=== PATIENT | female | born 1980 | race Caucasian/White ===

== ENCOUNTER 2017-10-12 21:36 | Emergency (ER) | payer MEDICAID, SELFPAY ==
[2017-10-12 21:37] VITALS: BP 134/97; PULSE 107; RESP 18; TEMP 37.1; O2SAT 97; BMI 65.0
[2017-10-12 21:58] LABS: Bacteria 0 SEEN /hpf (None Seen); Mucous, Urine 0 SEEN /hpf (<or=2+)
[2017-10-12 22:14] LABS: Internal QC Validated? YES +Cl - CLEAR BKGD; Pregnancy, Urine Negative Negative
[2017-10-12 22:20] LABS: Color, Urine Yellow (Yellow); Glucose, Dipstick 250 mg/dl (Normal); Ketone-Dipstick Negative (Negative); Leukocyte Esterase-Dipstick 100 /ul (Negative); Nitrite-Dipstick Negative (Negative); Occult Blood-Urine 150 /ul (Negative); Protein-Dipstick 30 mg/dl (Negative); Specific Gravity, Urine 1.015 (1.002-1.030); Urine Bilirubin Dipstick Negative (Negative); Urine Clarity Clear (Clear); Urine Urobilinogen 1 mg/dl (Normal); Urine pH 6.5 (5.0 - 8.0)
[2017-10-12 22:21] LABS: Red Blood Cells-Urine 5-10 SEEN /hpf (0-5); White Blood Cells 10-25 SEEN /hpf (0-5)
[2017-10-12 22:22] LABS: Squamous Epithelial Cells - UA 0-5 SEEN /hpf (5-10)
--- NOTE | 2017-10-12 22:59 | ED.RN ---
PT RANG CALL CISNEROS C/O CONTINUED PAIN. DR. ELLIS INFORMED. NO NEW ORDERS AT THIS TIME. WILL CONTINUE TO MONITOR.
--- NOTE | 2017-10-12 23:04 | ED.DCSUM_ITS ---
- ER Visit Summary Date of Service: 10/12/17 Chief Complaint: Dysuria History of Present Illness: The patient is a 37 F 3 days of dysuria hematuria and frequency. She notes bilateral kidney pain. No fevers. Physical Examination: Febrile vital signs are stable. Obesity of the current precludes palpation of the abdominal structures. There is no CVA tenderness Test Results: Urinalysis on 10-25 white cells 5-10 red cells test was negative Emergency Department Course and Treatment: She will be started on Pyridium and Macrobid. Urine culture was ordered. Impression: 1. Acute cystitis This note was generated with [employer] dictation software. It may contain incorrect words, spelling, and punctuation that were not noted in review of the chart prior to signing ED Disposition - Plan for ED Patient: Disposition: Home or Assisted Living Chief Complaint: Complaint Instructions: ED UTI Cystitis Female Prescriptions: Nitrofurantoin Macrocrystals [Macrobid] 100 mg PO Q12 #10 cap Phenazopyridine HCl [Pyridium] 200 mg PO BID PRN PRN #6 tab PRN Reason: Pain Referrals: Verona Villarreal MD [Primary Care Provider] - 5-7 Days
[2017-10-12] MEDS: Nitrofurantoin Macrocrystals 100 MG Capsule PO (23:19)
[2017-10-12] MEDS: Phenazopyridine 95 MG Tablet 190 MG PO (23:19)
[2017-10-12 23:20] VITALS: BP 102/60; PULSE 79; RESP 18; O2SAT 96
== END 2017-10-12 23:21 | disposition home or self-care (01) ==
PROVIDERS: Emergency Provider Emergency Medicine; Family Provider Internal Medicine; PCP Internal Medicine
DX: N30.00 Acute cystitis without hematuria (principal); E11.9 Type 2 diabetes mellitus without complications; F31.9 Bipolar disorder, unspecified; E66.9 Obesity, unspecified; Z72.0 Tobacco use; Z79.84 Long term (current) use of oral hypoglycemic drugs; Z79.899 Other long term (current) drug therapy
CPT/HCPCS: 81001; 81025; 87077; 87086; 87088; 87186; 99283

== ENCOUNTER 2017-10-22 11:10 | Day surgery (SDC) | payer MEDICAID, SELFPAY ==
[2017-10-22] VITALS (7 sets, daily range): BP systolic 95–133; BP diastolic 56–91; PULSE 83–97; RESP 16–18; TEMP 36.4–36.6; O2SAT 96–98; BMI 64.0
--- NOTE | 2017-10-22 | IMM_PTH ---
PATIENT: ANDRES BOB LOC: EN U#:[id number] AGE/SX: 37/F ROOM: RE10/22/[address]: Dr. Rigo Donovan MD : 1980 BED: DIS: 10/22/2017 SPEC #: [id number] RECD: 10/24/17 10:17 STATUS: FELIPE RETete #: [id number] GABRIELLA: 10/22/17 00:[address]: Rigo Donovan DEPT: IMMUNOHISTOCHEMISTRY RECD BY: Erendira Fulton ENTERED: 10/24/17 10:18 SP TYPE: IMMUNO OTHR DR: Dr. Verona Villarreal MD Tissues: A - Stomach, NOS Procedures: H Pylori (initial) PHYSICIAN & INSTITUTION [place] [id number] SPECIMEN INFORMATION: Tissue Source: A ? Antrum biopsy Clinical Info: Epigastric pain, diarrhea Specimen Number: [id number] CPT code: 81362 METHODOLOGY: Deparaffinized sections of prefer/formalin-fixed tissue or PAP/DQ stained slides are incubated with monoclonal/polyclonal antibodies/oligonucleotide probes. Localization is made via biotin free immunoperoxidase method. Appropriate controls are performed and reacted as expected. Results on target cell population are indicated in the following table: RESULTS: ANTIBODY / CLONE RESULT Block A H Pylori (polyclonal) negative These tests were developed and their performance characteristics determined by [facility]. They may not have been cleared or approved by the U.S. Food and Drug Administration. The FDA has determined that such clearance or approval is not necessary. INTERPRETATION: A. Antrum biopsy: Negative for Helicobacter pylori organisms. SJ:manoj 10/24/17
--- NOTE | 2017-10-22 07:35 | HP.PCM_ITS ---
History and Physical Date of Admission: 10/22/17 HISTORY AND PHYSICAL ? Nanci Rodriguez 1980 ? REFERRING PHYSICIAN: ~~Rigo Donovan MD ? CHIEF COMPLAINT: ~~Established Patient (CT scan results for hernia) - Epigastric pain ? HPI: The patient is a 36 year old female who follows up for concern of epigastric pain which she believes is a recurrent hernia. ? Nanci is a patient I am following for a umbilical hernia. ~I performed an umbilical hernia repair with mesh on 10/05/16. ~~~The patient is morbidly obese. ~The patient has diabetes. ~At the time before surgery, she claimed that she quit smoking but now admits that she did not quit smoking. ~Due to her morbid obesity we could not appreciate a upper midline ventral hernia where the patient was having discomfort. ~We also do not appreciate a recurrence at her umbilical incisional hernia repair. ~A CT scan of the abdomen and pelvis was obtained. ~This demonstrated: ? IMPRESSION: Low-attenuation density at site of umbilical hernia may represent minimal residual seroma or remote hematoma. ?Infection cannot be excluded on the basis of this study. ?No recurrent hernia. Hepatic steatosis. ? I reviewed the CT scan. ~I see no signs of recurrent herniation or abnormality in the upper abdomen which would explain her pain symptoms ? Nanci notes the following GI complaints: ~~Nanci notes~diarrhea. ~The patient states that food she ate would run right out of her within 1 hour.~~ Nanci denies~constipation. ~Nanci notes~a change in bowel habits. ~Nanci denies~melena. ~Nanci denies~bright red blood per rectum. ~~~Nanci denies~ hemorrhoids. ~ ? The patient ~notes the following upper complaints: ~~Nanci notes abdominal pain. ~~~The pain occurs in the following locations: ~epigastric region . ~ Nanci denies~heartburn. ~~Nanci denies~dysphagia. ~Nanci denies~a history of ulcers/ peptic ulcer disease. ~ ? Nanci has not~undergone prior endoscopy. ~ ? ? PAST?MEDICAL?HISTORY PAST MEDICAL HISTORY Diagnosis Date ? Abnormal glandular Papanicolaou smear of cervix 2004 ? Abn. Pap smear (cervix) ? Allergic rhinitis, cause unspecified ? ? Bipolar I disorder, most recent episode (or current) depressed, moderate 12/26/2011 ? CPAP (continuous positive airway pressure) dependence ? ? Depressive disorder, not elsewhere classified ? ? Migraine without aura, without mention of intractable migraine without mention of status migrainosus 03/29/2006 ? Mild dysplasia of cervix ? ? Obesity ? ? Unspecified asthma(493.90) ? ? ? PAST?SURGICAL?HISTORY PAST SURGICAL HISTORY Procedure Laterality Date ? BACK SURGERY HX ? ? ? Pain block ? REPAIR UMBILICAL MARY,5+Y/O,REDUC ? 10/05/2016 ? 8cm ventralex ST mesh ? VAGINOSCOPY ? CURRENT?MEDICATIONS ? Current Outpatient Prescriptions: VENTOLIN HFA 90 mcg/actuation inhaler Inhale 2 Puffs as instructed every 4 hours as needed. SUMAtriptan (IMITREX) 25 mg tablet Take 1 tablet by mouth at onset of headache and may repeat in 2 hrs if needed. CPAP CPAP and lifetime supplies ~G47.33 topiramate (TOPAMAX) 100 mg tablet TAKE 1 TABLET TWICE DAILY naproxen (NAPROSYN) 500 mg tablet TAKE 1 TABLET TWICE DAILY WITH FOOD NEEDED FOR PAIN and FOR INFLAMMATION metFORMIN (GLUCOPHAGE) 500 mg tablet Take 2 tablets by mouth twice daily with meals. lancets (FREESTYLE LANCETS) 28 gauge [facility] Test blood sugar(s) 1x daily. ~Dx: E11.9. Insulin: No urea (CARMOL) 40 % crea Apply 1 application to affected area twice daily. Blood-Glucose Meter (FREESTYLE INSULINX) [facility] Freestyle INSULINX Meter Kit. Dx: ~Type 2 DM - Controlled E11.9, Not on insulin buPROPion XL (WELLBUTRIN XL) 300 mg 24 hr tablet Take 1 tablet by mouth once daily. lamoTRIgine (LAMICTAL) 200 mg tablet Take 1 tablet by mouth once daily. loratadine (CLARITIN) 10 mg tablet Take 1 tablet by mouth once daily. montelukast (SINGULAIR) 10 mg tablet Take 1 tablet by mouth daily at bedtime. CPAP Initiate CPAP @ 15 cm of water with humidification. Mask (per patient preference ) optional chin strap (if indicated) , filters, tubing, humidifier and lifetime supplies. mometasone-formoterol (DULERA) 200-5 mcg/actuation inhaler Inhale 1-2 Puffs as instructed twice daily. traZODone (DESYREL) 100 mg tablet Take 1 to 2 tablets by mouth at bedtime as needed. LORazepam (ATIVAN) 1 mg tablet Take 1 tablet by mouth twice daily. As needed. Nebulizer NEBULIZER and Supplies FOR HOME USE. ~DX: J45.40 Albuterol Sulfate 1.25 mg/3 mL nebulizer solution Use 1 Ampule via nebulizer every 4 hours as needed for Wheezing/Shortness of Breath. citalopram (CELEXA) 40 mg tablet Take 1.5 tablets by mouth once daily. [facility] HYDROcodone-acetaminophen (NORCO) 5-325 mg per tablet ? acetaminophen-codeine (TYLENOL-CODEINE #3) 300-30 mg per tablet Take 1 tablet by mouth twice daily as needed for Pain. blood sugar diagnostic (FREESTYLE INSULINX) test strip Test blood sugars 1x per day. ~Dx: E11.9, insulin use: No diphenhydrAMINE (BENADRYL) 25 mg capsule Take 25 mg by mouth every 6 hours as needed. ? No current facility-administered medications for this visit. ? ALLERGIES: Penicillins; Melatonin; Tramadol; Environmental [Other] ? PERSONAL HISTORY: SOCIAL?HISTORY Social History ~~Marital status: Single ~~~~~~~~~~~~~Spouse name: ~~~~~~~~~~~~~~~~~~ ~~Years of education: 11 ~~~~~~~~~~~~~Number of children: 2 ~~~~~~~~ ? Occupational History Occupation ~~~~~~~~~Employer ~~~~~~~~~~~Comment ~~~~~~~~~~~~ UNEMPLOYED ~~~~~~~~~~~~~~~~~~~~~~~~~~~~~[employer] ? Social History Main Topics ~~Smoking status: Former Smoker ~~~~~~~~~~~~~~~~~~~~~~~~~~~~~~~~~~~~~~~~~~~~~~~~ ~~~~~~~~ ~~~~~Packs/day: 0.33 ~~~~~Years: 8.00 ~~~ ~~~~~Types: Cigarettes ~~~~~Start date: 08/17/1998 ~~~~~Quit date: 10/12/2016 ~~Smokeless status: Never Used ~~~~~~~~~~~~~~~~~~~ ~~Comment: 1 pack every 2-3 days ~~Alcohol use: Yes ~~~~~~~~ ~~~~~Comment: Seldom ~~Drug use: No ~~~~~~~~~ ~~~~~Comment: Past history of Marjiuana use ~~Sexual activity: Yes ~~~~~~~~~~~~~~Partners with: Male ~~~~~ control/protection: None ? ? FAMILY HISTORY: FAMILY?HISTORY FAMILY HISTORY Problem Relation Age of Onset ? hepatitis b [OTHER] Mother ? ? Asthma Father ? ? Hypertension Father ? ? Diabetes Father ? ? Hypertension Brother ? ? ? adhd ? Asthma Brother ? ? REVIEW OF SYMPTOMS: ~~The review of systems data was entered by the nurse and reviewed by me ? Nursing Notes: Jennifer Mayo Nima ~07/17/2017 ~3:22 PM ~Signed ? AMB ROOMING INTAKE FLOWSHEET DATA Risk Screening Do you have concerns about personal safety or safety in the home?: No Pain Pain Score: 7/10 Pain Location: Abdomen Description: Aching Duration Amount of Time: ~(Ongoing) Frequency: Continuous ? Patient states she is continuing to have pain in her abdomen. Taking no med's for the pain. Here for CT scan results. ? Jennifer Mayo Nima ~07/17/2017 ~3:24 PM ~Signed Patient states 2 of her son's at home have strep throat and are being treated. ~ ? ?? PHYSICAL EXAMINATION: ? General: ~The patient is 36 year old female, well nourished, well hydrated in no acute distress. ~The patient is oriented to time, place, and person. ? VITALS: Height 160 cm (5' 3), weight (!) 170.1 kg (375 lb), last menstrual period 07/11/2017.~Body mass index is 66.43 kg/(m^2).~ ? HEENT: ~Normal cephalic, ataumatic, pupils are equally round, sclera are anicteric, mucous membranes are moist, oropharynx is clear. ~Neck has no masses , asymmetry or lymphadenopathy. ~Thyroid is unremarkable. ? Respiratory: ~Clear to auscultation and percussion. ~Normal respiratory excursion and pattern. - INITIALLY WHEEZES BUT IMPROVED AFTER ALBUTEROL WAS GIVEN ? Cardiac: ~Examination is regular rate and rhythm. ? Abdominal exam: ~Soft, tenderIn the supraumbilical area not truly the epigastric area without additional areas of tenderness without peritoneal signs , ~with no palpable masses. ~No hepatosplenomegaly. ~No palpable hernias. ? Rectal exam: exam deferred ? Extremities: ~no clubbing, cyanosis or edema. ~No adenopathy. ? Other: ? LABORATORY VALUES: As Noted ? RADIOLOGIC STUDIES: ~As Noted ? Assessment ~ IMPRESSION: Upper abdominal pain, no signs of herniation, no CT scan images demonstrating abnormalities, loose stools frequently after eating ? PLAN: ~I plan to perform upper and lower~endoscopy. ~~We discussed the risks and benefits of the planned endoscopy. ~I have informed the patient that complications can occur including failure to complete the endoscopy and perforation. ~The patient had the opportunity to ask questions concerning the planned endoscopy. ~My staff has also explained the procedure to the patient in understandable terms and has given the patient printed material concerning the procedure. ~The patient freely consents to surgery. ? I plan to use golytely bowel preparation for endoscopy ? The patient has medical comorbidities for which I plan to perform the procedure under monitored anesthetic care. ? Diagnoses: (R10.10) Pain of upper abdomen ~(primary encounter diagnosis) (R19.4) Change in bowel habits ? My findings have been communicated to Dr. Caryn Villarreal MD~via shared medical record. ~This note will be forwarded to Dr. Verona Villarreal MD. ? Return to Clinic: The patient is instructed to follow-up with me 1 week post operatively. ? Rigo Donovan MD
[2017-10-22 11:48] LABS: Internal QC Validated? YES +Cl - CLEAR BKGD; Pregnancy, Urine Negative Negative
[2017-10-22 12:16] LABS: Bedside Glucose 133 mg/dL (70-110)
--- NOTE | 2017-10-22 13:02 | EGD_PTH ---
PATIENT: ANDRES BOB LOC: EN U#:[id number] AGE/SX: 37/F ROOM: RE10/22/[address]: Dr. Rigo Donovan MD : 1980 BED: DIS: 10/22/2017 SPEC #: [id number] RECD: 10/22/17 15:19 STATUS: FELIPE STEPHY #: [id number] GABRIELLA: 10/22/17 13:[address]: Rigo Donovan DEPT: SURGICAL PATHOLOGY RECD BY: Jatin Perez ENTERED: 10/23/17 09:35 SP TYPE: EGD BIOPSY ESTEFANIA DR: Dr. Verona Villarreal MD Tissues: A - Gastric mucous membrane B - Ileum, NOS C - Cecum, NOS Procedures: Surgery Specimen Level IV HEADER OPERATION: EGD with biopsy, colonoscopy with biopsy PRE-OP DIAGNOSIS: Epigastric pain, diarrhea TISSUE SUBMITTED: A ? Antrum biopsy, B ? Terminal ileum biopsy, C ? Cecum biopsy and sigmoid biopsy MICROSCOPIC DIAGNOSIS A. Antral biopsy: Mild gastritis. B. Terminal ileum, biopsy: Fragment of small intestinal mucosa, no pathologic diagnosis. C. Cecum and sigmoid biopsy: Fragments of colonic mucosa, no pathologic diagnosis. SJ:manoj 10/24/17 COMMENT A. The results of immunohistochemistry for Helicobacter pylori will be reported separately ([id number]). MICROSCOPIC DESCRIPTION Slides are reviewed. A. The specimen shows fragments of gastric mucosa with chronic inflammatory cell infiltrates in the lamina propria consisting of lymphocytes and plasma cells, consistent with mild chronic gastritis. GROSS DESCRIPTION A - Received in fixative is one container labeled with the patient's name and designated antral biopsy. The specimen consists of one irregular fragment of light grullon soft tissue that measures 0.3 x 0.3 x 0.1 cm. The specimen is totally submitted in one cassette. B - Received in fixative is one container labeled with the patient's name and designated terminal ileum biopsy. The specimen consists of one irregular fragment of light grullon soft tissue that measures 0.3 x 0.2 x 0.1 cm. The specimen is totally submitted in one cassette. C - Received in fixative is one container labeled with the patient's name and designated cecum biopsy and sigmoid biopsy. The specimen consists of two irregular fragments of light grullon soft tissue that in aggregate measure 0.5 x 0.4 x 0.1 cm. The specimen is totally submitted in one cassette. / SJ:rg 10/23/17 TC:3 CPT: 89946 x3
--- NOTE | 2017-10-22 13:40 | PCM.OPRPT ---
Report of Operation Date of Procedure: 10/22/17 Pre-Operative Diagnosis: EPIGASTRIC PAIN, CHANGE IN BOWEL HABITS Post-Operative Diagnosis: DUODENITIS, GASTRITIS AND REFLUX ESOPHAGITIS, NORMAL TERMINAL ILEUM, NORMAL COLONOSCOPY Surgery/Procedure Performed:: EGD WITH BIOPSY, COLONSOCOPY WITH BIOPSY interactive video technician: None Type of Anesthesia:: MAC Anesthesiologist: [place] ASA3 Specimen's removed: GASTRIC, TERMINAL ILEUM, COLON X 2 - RANDOM Description of Procedure: The patient was brought to the endoscopy suite. Sign in was performed verifying patient, site, planned procedure, critical nursing information, the patient was monitored with cardiac, pulse oximetric, and blood pressure monitoring devices. Monitored anesthetic care was provided for sedation. Following IV sedation and after the oropharynx was sprayed with Cetacaine spray, a video gastroscope was inserted in the oropharynx and advanced down the esophagus without difficulty. The scope was advanced through the stomach, through the pylorus through the duodenum to the proximal jejunum. the jejunum and third portion of duodenum were unremarkable. The scope was withdrawn. There was mild to moderate duodenitis. The scope was further withdrawn. There was gtcx-[id number]-dvdhywxn diffuse gastritis present both in the antral region along the greater curvature and the fundic areas. Biopsy of the antral region for H. pylori and pathology was performed. There was no true hiatal hernia, but the patient inaudible axillary esophageal sphincter. The distal esophagus demonstrated changes consistent with reflux esophagitis. Biopsy was performed. The patient was positioned for colonoscopy. A digital rectal exam was performed which revealed no palpable abnormalities. The video colonoscope was inserted and advanced to the cecum as verified by the ileocecal valve, cecal base anatomic features and palpation. the video colonoscope was then inserted into the terminal ileum. The terminal ileum appeared unremarkable. A biopsy of the terminal ileum was obtained and sent to pathology. The scope was withdrawn. There was a scant amount of solid stool adherent to the nguyen of the cecum. The transverse colon and the descending colon but otherwise visualized. Inspection revealed normal-appearing colon throughout. Random colonic biopsies were obtained in the cecum and sigmoid region area. As the scope was withdrawn. The scope was retroflexed in the rectum. This appeared unremarkable. The patient tolerated the procedure well and was brought to recovery in stable condition
== END 2017-10-22 14:00 | disposition home or self-care (01) ==
LOC: EN 11:12 → AC 11:23
PROVIDERS: Anesthesiology; Family Provider Internal Medicine; PCP Internal Medicine; Visit Provider Surgery
PROC: 0DJD8ZZ Inspection of Lower Intestinal Tract, Via Natural or Artificial Opening Endoscopic (ICD-10-PCS; CPT 45378; principal; 2017-10-22 12:25)
DX: K29.70 Gastritis, unspecified, without bleeding (principal); K29.80 Duodenitis without bleeding; K21.0 Gastro-esophageal reflux disease with esophagitis; R19.7 Diarrhea, unspecified; K76.0 Fatty (change of) liver, not elsewhere classified; E11.9 Type 2 diabetes mellitus without complications; J45.909 Unspecified asthma, uncomplicated; G47.30 Sleep apnea, unspecified; G43.909 Migraine, unspecified, not intractable, without status migrainosus; F31.9 Bipolar disorder, unspecified; F41.9 Anxiety disorder, unspecified; F17.200 Nicotine dependence, unspecified, uncomplicated; E66.01 Morbid (severe) obesity due to excess calories; Z68.44 Body mass index [BMI] 60.0-69.9, adult; Z79.84 Long term (current) use of oral hypoglycemic drugs; Z79.899 Other long term (current) drug therapy; Z87.442 Personal history of urinary calculi; Z87.440 Personal history of urinary (tract) infections
CPT/HCPCS: 43239; 45380; 81025; 82962; 88305; 88342; J7120

== ENCOUNTER 2017-11-10 19:38 | Emergency (ER) | payer MEDICAID, SELFPAY ==
[2017-11-10 19:39] VITALS: BP 148/92; PULSE 85; RESP 15; TEMP 36.7; BMI 63.4
[2017-11-10] MEDS: 0.9% Normal Saline 1,000 ML 1000 ML IV (20:19)
[2017-11-10] MEDS: Ondansetron 4 MG/2 ML Vial IV (20:20)
[2017-11-10 20:32] LABS: Absolute Lymphocyte Count 2.66 X10^3/ul (0.83-4.51); Absolute Neutrophil Count 4.8 X10^3/uL (2.0-7.7); Basophil# 0.02 X10^3/uL; Basophil% 0.2 % (0-1); Eosinophil# 0.33 X10^3/uL; Eosinophils% 4.1 % (0-5); Hematocrit 46.6 % (37-47); Hemoglobin 15.2 g/dl (12.0-15.0); Lymphocyte # 2.66 X10^3/ul (4.0); Lymphocyte % 32.7 % (19-41); Mean Corp Hgb Conc 32.6 g/gl (32-36); Mean Corpuscular Hgb 29.2 pg (27.0-32.0); Mean Corpuscular Volume 89.4 fL (81-99); Mean Platelet Vol. 9.5 fl (6.2-12.0); Monocyte% 3.7 % (0-10); Neutrophil # 4.82 X10^3/uL (2.7-7.7); Neutrophil % 59.2 % (47-70); POSITIVE COUNT NO; POSITIVE DIFFERENTIAL NO; POSITIVE MORPHOLOGY NO; Platelet Count 219 K/mm3 (150-450); RBC Distribution Width CV 14.2 % (11.6-14.6); RBC Distribution Width SD 46.3 fl (35.1-43.9); Red Blood Count 5.21 M/mm3 (4.2-5.4); White Blood Count 8.1 K/mm3 (4.4-11.0)
[2017-11-10 20:46] LABS: ALB/GLOB Ratio 0.9 RATIO (0.9-2.4); AST(SGOT) 60 U/L (15-37); Alanine Aminotransfer ALT/SGPT 66 U/L (13-56); Albumin, Serum 3.5 g/dL (3.2-5.0); Alkaline Phosphatase 115 U/L (45-117); Anion Gap 7 (5-15); BUN 12 mg/dL (7-18); BUN/Creat Ratio 14.5 RATIO (10-20); Calcium,Total 8.9 mg/dL (8.5-10.1); Chloride 105 mmol/L (98-107); Creatinine, Serum 0.83 mg/dL (0.55-1.02); EST Glomerular Filtration Rate 83 mL/min (>60); Est Glom Filt Rate - Afr Amer 100 mL/min (>60); Estimated Creatinine Clearance 80.91 ml/min; Globulin 4.1 g/dL (2.2-4.2); Glucose 129 mg/dL (74-106); Lipase 361 U/L (73-393); Potassium 3.6 mmol/L (3.5-5.1); Protein, Total 7.6 g/dL (6.4-8.2); Sodium Level 139 mmol/L (136-145)
[2017-11-10 21:52] VITALS: BP 127/83; PULSE 77; RESP 20; O2SAT 96
--- NOTE | 2017-11-10 22:16 | ED.DCSUM_ITS ---
- ER Visit Summary Date of Service: 11/10/17 Chief Complaint: Acute right upper quadrant abdominal pain History of Present Illness: The patient is a 37 F who presents with abdominal pain. She states she awoke this morning urinated without difficulty. She then had 2 loose stools. She now presents with acute right upper quadrant abdominal pain. She denies intolerance to greasy or fried foods. There is no known family history of cholelithiasis. She reports history of renal lithiasis 17 years ago. She denies frequency, urgency, hematuria or dysuria. She denies any chest pain, shortness of breath, cough or dyspnea on exertion. There is no history of trauma. She denies any skin lesions or rash. She incorrectly told the triage nurse left sided abdominal pain. She denies fever, chills night sweats. Denies weight loss or weight gain. She denies any ocular, visual or auditory symptoms. She denies rhinorrhea or sore throat. Physical Examination: Patient's vital signs are marked for an elevated blood pressure of 148/92 and she is afebrile. Heart rate is 85 and respiratory rate is 15. Head is atraumatic normocephalic. Pupils are equal round reactive. Extraocular muscles are intact. TMs are pearly white with landmarks noted. Nares patent with no drainage. Posterior pharynx without erythema or exudate. Uvula is midline. There is no dysphonia or dysphasia. Trachea is midline. There is no stridor with auscultation of the neck. Heart is regular without murmur, gallop or rub. S1 and S2 are normal. Lungs are clear to auscultation with good movement of air bilaterally. Abdomen is remarkable for tenderness the right upper quadrant. Jain sign is negative. Bowel sounds are present diminished. There is no CVA tenderness noted. There is no lesion or rash to suggest herpes varicella-zoster. There is no evidence of umbilical hernia. Difficult to assess for inguinal hernia. Lower extremity exam is unremarkable. Neurologic exam is nonfocal. Test Results: White count is normal. Electrolyte panel is remarkable glucose of 129. Hepatic is remarkable for an ALT of 66 and AST of 60. The ALT is slightly above normal and the AST is approximately 2 times normal. She denies history of drinking. Emergency Department Course and Treatment: He was established she was treated with Zofran and morphine IV push. Blood work was obtained to evaluate for hepatobiliary disease. Treatment Plan: Was reassessed at 2210. She has decreased pain in the right upper quadrant. She has had no vomiting during her stay. She does report improvement. Will discharge with prescription for outpatient ultrasound of the gallbladder. She has seen Dr. Clark in the past. Also will dispense home- going Zofran and [place] since pharmacies are closed. Disposition: Discharged to home Impression: Right upper quadrant abdominal pain with elevated ALT and AST uncertain etiology This note was generated with [employer] dictation software. It may contain incorrect words, spelling, and punctuation that were not noted in review of the chart prior to signing ED Disposition - Plan for ED Patient: Disposition: Home or Assisted Living Chief Complaint: Abd Pain Instructions: ED Abdominal Pain Gallstone Poss Referrals: Verona Villarreal MD [Primary Care Provider] - 3-5 Days Additional Instructions: Do not eat after midnight day before ultrasound.
[2017-11-10] MEDS: HYDROcodone Bitartrate/Apap 5/325 Tablet PO ×2 (22:39→22:41)
[2017-11-10] MEDS: Ondansetron ODT 4 MG Tablet PO (22:40)
[2017-11-10 22:46] VITALS: BP 111/73; PULSE 82; RESP 14; O2SAT 95
--- NOTE | 2017-11-10 22:47 | NURSING ---
patient IV site removed catheter intact and bleeding controlled with pressure. Patient given discharge instructions with verbal understanding. family at the bedside at this time
== END 2017-11-10 22:48 | disposition home or self-care (01) ==
PROVIDERS: Emergency Provider Emergency Medicine; Family Provider Internal Medicine; PCP Internal Medicine
DX: R10.11 Right upper quadrant pain (principal); R74.0 Nonspecific elevation of levels of transaminase and lactic acid dehydrogenase [LDH]; R11.2 Nausea with vomiting, unspecified; R19.7 Diarrhea, unspecified; R03.0 Elevated blood-pressure reading, without diagnosis of hypertension; F31.9 Bipolar disorder, unspecified; E66.9 Obesity, unspecified; Z79.84 Long term (current) use of oral hypoglycemic drugs; Z79.899 Other long term (current) drug therapy
CPT/HCPCS: 80053; 83690; 85025; 96361; 96374; 96375; 99284; J7030; J2405

== ENCOUNTER → 2017-11-14 10:06 | Outpatient (CLI) | payer MEDICAID, SELFPAY ==
--- NOTE | 2017-11-14 10:08 | US_ITS ---
STUDY: ABDOMINAL ULTRASOUND - RIGHT UPPER QUADRANT REASON FOR VISIT: Female, 37 years old. Elevated liver function tests and right upper quadrant pain. TECHNIQUE: Ultrasound evaluation of the right upper quadrant was performed with real-time and static boyce-scale imaging. TECHNICAL QUALITY: Limited. Examination limited due to obesity. COMPARISON: Comparison is made with prior CT scan abdomen dated September 19, 2017. FINDINGS: Liver: The liver measures 15.2 cm. There is increased echogenicity consistent with fatty infiltration. The bile ducts are within normal limits. There is hepatic color flow. The direction of portal flow is hepatopetal. There is no demonstrated mass lesion. Gallbladder: Normal distended gallbladder. The gallbladder wall measures 3.0 mm. There is a negative sonographic Jain's sign. There is no pericholecystic fluid. There are no gallstones. Common Bile Duct (C.B.D.): The common bile duct measures 5.0 mm. Pancreas: Normal size of the head, body and tail of the pancreas. There is normal echogenicity of the pancreas. There is no demonstrated pancreatic mass or cyst. Right Kidney: There is hypertrophy of the right kidney. The right kidney measures 16.1 cm x 7.3 cm x 6.6 cm. Normal renal cortex. The right cortex measures 1.7 cm. There is no demonstrated renal mass or cyst. There is no right hydronephrosis. US/Gallbladder IMPRESSION: Fatty infiltration of liver. Hypertrophy of the right kidney. Electronically Signed: Bernardo Barbosa MD at 15:21 EST Tel [phone], Service support ,
== END ==
PROVIDERS: Family Provider Internal Medicine; PCP Internal Medicine; Visit Provider Emergency Medicine
DX: R10.11 Right upper quadrant pain (principal); R74.8 Abnormal levels of other serum enzymes
CPT/HCPCS: 76705

== ENCOUNTER 2017-12-11 23:22 | Emergency (ER) | payer MEDICAID, SELFPAY ==
[2017-12-11 23:24] VITALS: BP 92/50; PULSE 105; RESP 18; TEMP 37.2; O2SAT 97; BMI 64.3
[2017-12-12 00:06] VITALS: BP 138/72; PULSE 99; O2SAT 97
[2017-12-12 00:44] LABS: Absolute Lymphocyte Count 2.42 X10^3/ul (0.83-4.51); Absolute Neutrophil Count 5.1 X10^3/uL (2.0-7.7); Basophil# 0.03 X10^3/uL; Basophil% 0.4 % (0-1); Eosinophils% 3.6 % (0-5); Hematocrit 42.4 % (37-47); Hemoglobin 14.2 g/dl (12.0-15.0); Lymphocyte # 2.42 X10^3/ul (4.0); Lymphocyte % 29.3 % (19-41); Mean Corp Hgb Conc 33.5 g/gl (32-36); Mean Corpuscular Hgb 29.6 pg (27.0-32.0); Mean Corpuscular Volume 88.3 fL (81-99); Mean Platelet Vol. 9.5 fl (6.2-12.0); Monocyte# 0.41 X10^3/uL; Neutrophil % 61.6 % (47-70); POSITIVE COUNT NO; POSITIVE DIFFERENTIAL NO; POSITIVE MORPHOLOGY NO; Platelet Count 214 K/mm3 (150-450); RBC Distribution Width CV 14.2 % (11.6-14.6); RBC Distribution Width SD 45.2 fl (35.1-43.9); White Blood Count 8.3 K/mm3 (4.4-11.0)
[2017-12-12] MEDS: 0.9% Normal Saline 1,000 ML 1000 ML IV (00:46)
[2017-12-12] MEDS: Ondansetron 4 MG/2 ML Vial IV (00:46)
[2017-12-12] MEDS: Morphine 4 MG/ML Syringe IV (00:46)
[2017-12-12 00:51] LABS: Bacteria 0 SEEN /hpf (None Seen); Mucous, Urine 0 SEEN /hpf (<or=2+); Red Blood Cells-Urine 0 SEEN /hpf (0-5)
[2017-12-12 00:54] LABS: Color, Urine Yellow (Yellow); Glucose, Dipstick Normal (Normal); Ketone-Dipstick Negative (Negative); Leukocyte Esterase-Dipstick 25 /ul (Negative); Nitrite-Dipstick Negative (Negative); Occult Blood-Urine Negative /ul (Negative); Protein-Dipstick Negative (Negative); Urine Bilirubin Dipstick Negative (Negative); Urine Clarity Clear (Clear); Urine Urobilinogen 4 mg/dl (Normal)
[2017-12-12 00:57] LABS: AST(SGOT) 48 U/L (15-37); Alanine Aminotransfer ALT/SGPT 56 U/L (13-56); Albumin, Serum 3.2 g/dL (3.2-5.0); Alkaline Phosphatase 108 U/L (45-117); Anion Gap 6 (5-15); BUN 12 mg/dL (7-18); BUN/Creat Ratio 15.2 RATIO (10-20); Calcium,Total 8.7 mg/dL (8.5-10.1); Chloride 109 mmol/L (98-107); Creatinine, Serum 0.79 mg/dL (0.55-1.02); EST Glomerular Filtration Rate 87 mL/min (>60); Est Glom Filt Rate - Afr Amer 105 mL/min (>60); Estimated Creatinine Clearance 85.01 ml/min; Glucose 167 mg/dL (74-106); Lipase 412 U/L (73-393); Potassium 3.7 mmol/L (3.5-5.1); Protein, Total 7.2 g/dL (6.4-8.2); Sodium Level 141 mmol/L (136-145)
[2017-12-12 01:01] LABS: Squamous Epithelial Cells - UA 5-10 SEEN /hpf (5-10); White Blood Cells 0-5 SEEN /hpf (0-5)
[2017-12-12 01:03] LABS: Pregnancy, Serum, hCG Quali. NEGATIVE Negative (0-9 Nonpreg)
--- NOTE | 2017-12-12 01:08 | ED.VISSUMM ---
- ER Visit Summary Date of Service: 12/12/17 Chief Complaint: [] Lower abdominal pain History of Present Illness: The patient is a 37 F [] presents with lower abdominal pain for last hour gradual onset continuous cramping. She had one episode of emesis. Normal bowel movements. History of previous abdominal pains. Had a recent ultrasound that showed fatty liver and a recent CAT scan that showed nothing acute. Physical Examination: [] Vital signs reviewed General: Well-nourished well-developed Head: Normocephalic atraumatic Eyes: Pupils equal round and reactive to light extraocular movements intact ENT: TMs clear no hemotympanum no trauma Neck: Nontender full range of motion Cardiovascular: Regular rate rhythm no murmurs normal S1-S2 Respiratory: No distress clear to auscultation bilaterally chest nontender Abdomen: Soft lower abdominal diffuse tenderness nondistended normal bowel sounds no masses Back: Nontender no CVA tenderness Extremities: Nontender active range of motion ?4 extremities no trauma Skin: Normal color no trauma Neuro alert oriented cranial nerves II through XII intact normal strength sensation reflexes Test Results: [] Emergency Department Course and Treatment: [] CBC normal. Chemistries normal except chloride 109, glucose 167, liver function tests normal except AST 48. Lipase is only mildly elevated for 12 up from 361. Initially negative. Patient given IV fluids Zofran and morphine with complete relief of symptoms. She is resting comfortably on her phone. I do not feel she needs a CT at this time. I do not feel she has pancreatitis. I think this is likely bowel gas and she will be prescribed Bentyl and Zofran for home. Treatment Plan: [] Disposition: [] Impression: [] Abdominal pain nonspecific This note was generated with [employer] dictation software. It may contain incorrect words, spelling, and punctuation that were not noted in review of the chart prior to signing ED Disposition - Plan for ED Patient: Chief Complaint: Abd Pain Referrals: Verona Villarreal MD [Primary Care Provider] -
--- NOTE | 2017-12-12 01:10 | ED.DEP ---
ED Disposition - Plan for ED Patient: Disposition: Home or Assisted Living Chief Complaint: Abd Pain Instructions: ED Abdominal Pain Unkn Cause Prescriptions: Ondansetron [Zofran Odt] 4 mg PO Q8H PRN PRN #10 tab PRN Reason: Nausea Dicyclomine HCl [Bentyl] 20 mg PO TIDAC #20 cap Referrals: Verona Villarreal MD [Primary Care Provider] -
[2017-12-12 01:15] VITALS: BP 136/86; PULSE 102; O2SAT 97
== END 2017-12-12 01:18 | disposition home or self-care (01) ==
PROVIDERS: Emergency Provider Emergency Medicine; Family Provider Internal Medicine; PCP Internal Medicine
DX: R10.30 Lower abdominal pain, unspecified (principal); R11.2 Nausea with vomiting, unspecified; E66.01 Morbid (severe) obesity due to excess calories; G47.33 Obstructive sleep apnea (adult) (pediatric); E11.9 Type 2 diabetes mellitus without complications; F31.9 Bipolar disorder, unspecified; Z87.891 Personal history of nicotine dependence; R79.89 Other specified abnormal findings of blood chemistry; Z79.899 Other long term (current) drug therapy; Z79.84 Long term (current) use of oral hypoglycemic drugs
CPT/HCPCS: 80048; 80076; 81001; 83690; 84703; 85025; 96361; 96374; 96375; 99285; J7030; A4216; J2405

== ENCOUNTER 2018-02-25 16:58 | Observation (INO) | payer MEDICAID, SELFPAY ==
[2018-02-25 16:59] VITALS: BP 129/90; PULSE 91; RESP 15; TEMP 36.8; O2SAT 98; BMI 62.6
--- NOTE | 2018-02-25 17:14 | EKG12_ITS ---
Test Reason : CP REPEAT Blood Pressure : / mmHG Vent. Rate : 069 BPM Atrial Rate : 069 BPM P-R Int : 176 ms QRS Dur : 078 ms QT Int : 388 ms P-R-T Axes : 050 029 033 degrees QTc Int : 415 ms Normal sinus rhythm Low voltage QRS Borderline ECG Confirmed by KRAIG CAST, CAROLINE ([id number]), commissioning editor PRO SIDDIQI ([id number]) on 02/27/2018 5:16:27 PM Referred By: DR ELLIS Confirmed By:CAROLINE CORNELL MD
--- NOTE | 2018-02-25 17:20 | RAD_ITS ---
STUDY: X-RAY CHEST REASON FOR EXAM: Female, 37 years old. Chest pain TECHNIQUE: Portable frontal COMPARISON: August 10, 2016 FINDINGS: The lungs are clear and expanded. There is no demonstrated pleural abnormality. Normal size heart. Normal mediastinum and misael. Normal visualized pulmonary arteries. Normal visualized aortic arch and descending thoracic aorta. Normal visualized thoracic spine. Normal visualized ribs, clavicles, and shoulders. There is no demonstrated abnormality of the visualized soft tissue structures of the upper abdomen. RAD/Chest 1 View (Portable) IMPRESSION: No acute cardiopulmonary process. Electronically Signed: Lizbeth Mas MD at 17:35 EDT Tel , Service support ,
[2018-02-25 17:29] LABS: Basophil# 0.03 X10^3/uL; Basophil% 0.4 % (0-1); Eosinophil# 0.19 X10^3/uL; Eosinophils% 2.7 % (0-5); Lymphocyte % 36.9 % (19-41); Mean Corp Hgb Conc 33.3 g/gl (32-36); Mean Corpuscular Hgb 29.4 pg (27.0-32.0); Mean Corpuscular Volume 88.2 fL (81-99); Mean Platelet Vol. 9.5 fl (6.2-12.0); Monocyte# 0.26 X10^3/uL; Monocyte% 3.7 % (0-10); Neutrophil # 3.96 X10^3/uL (2.7-7.7); Neutrophil % 56.2 % (47-70); Platelet Count 175 K/mm3 (150-450); RBC Distribution Width CV 14.3 % (11.6-14.6); RBC Distribution Width SD 45.9 fl (35.1-43.9); Red Blood Count 4.76 M/mm3 (4.2-5.4); White Blood Count 7.1 K/mm3 (4.4-11.0)
[2018-02-25 17:33] LABS: POSITIVE COUNT NO; POSITIVE DIFFERENTIAL NO; POSITIVE MORPHOLOGY NO
[2018-02-25 17:40] LABS: Anion Gap 7 (5-15); BUN 12 mg/dL (7-18); Calcium,Total 8.6 mg/dL (8.5-10.1); Chloride 110 mmol/L (98-107); Creatinine, Serum 0.71 mg/dL (0.55-1.02); EST Glomerular Filtration Rate 99 mL/min (>60); Est Glom Filt Rate - Afr Amer 120 mL/min (>60); Glucose 97 mg/dL (74-106); Potassium 3.8 mmol/L (3.5-5.1); Sodium Level 141 mmol/L (136-145)
[2018-02-25] MEDS: 0.9% Normal Saline 1,000 ML 20 ML IV (17:42)
[2018-02-25 17:43] LABS: D-Dimer Quantitative (DVT/PE) 0.37 FEU/ug/m (0.27-0.49)
[2018-02-25] MEDS: Ondansetron 4 MG/2 ML Vial IV (17:43)
[2018-02-25] MEDS: Morphine 4 MG/ML Syringe IV (17:43)
--- NOTE | 2018-02-25 19:25 | ED.VISSUMM ---
- ER Visit Summary Date of Service: 02/25/18 Chief Complaint: Chest pain History of Present Illness: The patient is a 37 F reports onset of chest pain around 130 this afternoon when she was doing some light housework. She describes a sharp pain to the left of her sternum with some radiation down into her arms. She has not had significant shortness of breath. No recent URI symptoms. She is a history of diabetes, bipolar disorder, kidney stones, and back pain. Physical Examination: Vital signs are unremarkable. Head neck examination is normal. Heart is regular rate and rhythm. She has reproducible chest wall tenderness along the left sternal border. There is no crepitus. Lung sounds are clear. Abdomen is soft nontender. Lower extremity examination reveals 2+ symmetric edema. She has strong distal pulses. Test Results: Chest x-ray shows no acute process. EKG is sinus at [address] change. CBC and chemistry studies are normal. Troponin is less than 0.015. D-dimer is normal at 0.37. Emergency Department Course and Treatment: Patient was given aspirin with EMS. She was given morphine, Zofran, and Toradol here. Repeat evaluation she appears to be resting comfortably. I discussed doing a 3 hour rule out test for her. At this time she states that she is not comfortable with that and she still having significant pain. That being said the patient is sitting upright with her oxygen off and drinking. She appears quite comfortable. I will speak with the hospitalist regarding admission for cycling of cardiac enzymes. Treatment Plan: [] Disposition: Admit Impression: chest pain This note was generated with Might[employer] dictation software. It may contain incorrect words, spelling, and punctuation that were not noted in review of the chart prior to signing ED Disposition - Plan for ED Patient: Chief Complaint: Chest Pain Referrals: Verona Villarreal MD [Primary Care Provider] -
--- NOTE | 2018-02-25 19:41 | PCM.HP.STD ---
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 Onset began this afternoon at 1:30 pm and is described as 9/10 sharp left chest pain that radiates to both arms. Despite treatment she claims the pain continues in the ER. Initial cardiac enzymes are negative. She has no family history for coronary artery disease and she has had no previous workups. Since her pain continues she will be admitted for observation and cardiac workup. Past Medical History Past Medical History (Chronic Problems): Chronic Problems Bipolar 1 disorder (Chronic) Diabetes (Chronic) Smoker (Chronic) Obesity (Chronic) Allergies melatonin Allergy (Verified 12/11/17 23:23) Hives Penicillins Allergy (Verified 12/11/17 23:23) Hives tramadol Allergy (Verified 12/11/17 23:23) Hives Home Medications: Ambulatory Orders Medication Instructions Recorded Citalopram Hydrobromide [Celexa] 40 mg PO DAILY 07/07/13 Lamotrigine [Lamictal] 200 mg PO DAILY 07/07/13 Loratadine [Claritin] 10 mg PO DAILY 07/07/13 Topiramate [Topamax] 100 mg PO BID 07/07/13 Lorazepam [Ativan] 1 mg PO BID PRN 12/11/13 Albuterol Inhaler [Ventolin Hfa] 1 puff INHALATION Q4H PRN PRN 03/26/14 Fluticasone/Salmeterol [Advair 1 puff INHALATION BID 03/26/14 250/50 Mcg Diskus] traZODone [Desyrel] 200 mg PO QHS 01/12/15 Naproxen [Naprosyn] 500 mg PO BID #10 tablet 04/23/15 Metformin HCl [Glucophage] 1,000 mg PO BIDCM 08/10/16 Montelukast [Singulair] 10 mg PO DAILY 08/10/16 Sumatriptan Succinate [Imitrex] 25 mg PO .X1 PRN PRN 08/10/16 Bupropion HCl [Wellbutrin Xl] 300 mg PO DAILY 10/03/16 Dicyclomine HCl [Bentyl] 20 mg PO TIDAC #20 cap 12/12/17 Ondansetron [Zofran Odt] 4 mg PO Q8H PRN PRN #10 tab 12/12/17 Smoking Status: Current every day smoker - *Family History Maternal History Items: No pertinent history Review of Systems Constitutional: Denies: Chills, Fever, Weight Change HEENT: Denies: Head Aches, Sinus Congestion, Sinus Drainage Cardiovascular: Reports: Chest Pain. Denies: Palpitations Respiratory: Denies: Cough, Shortness of breath at rest, Sputum production Gastrointestinal: Denies: Abdominal Pain, Nausea, Vomiting Genitourinary: Denies: Dysuria Musculoskeletal: Denies: Joint Pain, Joint Tenderness Skin: Denies: Rash, Wounds Neurological: Denies: Numbness, Tingling, Focal weakness Psychiatric: Denies: Anxiety, Depression, Homicidal Ideations, Suicidal Ideations Hematologic/ Lymphatic: Denies: Easy Bruising, Easy Bleeding VTE Information - Inpt Only VTE Present on Admission: No VTE Mechan Device Prophylaxis: None VTE Pharm Prophylaxis ordered?: Yes Patient Problems: Active and Suspected Problems Chest pain (Acute) - Physical Exam General: Alert, Oriented x3, Cooperative HEENT: Atraumatic, PERRLA, Normocephalic Neck: Supple Lungs: Clear to auscultation, Normal air movement, No rhonchi, No wheeze, No rales Cardiovascular: Regular rate, Regular Rhythm, Normal S1, Normal S2, No murmurs Abdomen: Bowel Sounds Present, Soft, Non Tender, Obese Extremities: No edema Skin: No rashes Musculoskeletal: No Tenderness to Palpation of Joints or Extremities Neurological: Neuro grossly intact Psych/Mental Status: Normal Affect, Appropriate Vital Signs Temp Pulse Resp BP Pulse Ox 98.2 F 91 15 129/90 H 98 02/25/18 16:59 02/25/18 16:59 02/25/18 16:59 06/11/18 16:59 02/25/18 16:59 Oxygen Delivery Method Room Air Weight: 365 lb 4.895 oz Body Mass Index (BMI) 62.6 Finger Stick Blood Glucose 135 Laboratory Tests Past 24 Hrs 02/25/18 02/25/18 02/25/18 17:10 17:10 17:10 WBC 7.1 RBC 4.76 Hgb 14.0 Hct 42.0 MCV 88.2 MCH 29.4 MCHC 33.3 RDW 14.3 RDW Differential 45.9 H Plt Count 175 MPV 9.5 Immature Gran % (Auto) 0.100 Neut % (Auto) 56.2 Lymph % (Auto) 36.9 [place] % (Auto) 3.7 Eos % (Auto) 2.7 Baso % (Auto) 0.4 Absolute Neuts (auto) 4.0 Absolute Lymphs (auto) 2.60 Total Counted Not Reportable D-Dimer Quant (PE/DVT) 0.37 Sodium 141 Potassium 3.8 Chloride 110 H Carbon Dioxide 24.0 Anion Gap 7 BUN 12 Creatinine 0.71 Est GFR (MDRD) Af Amer 120 Est GFR (MDRD) Non-Af 99 BUN/Creatinine Ratio 17.0 Glucose 97 Calcium 8.6 Troponin I < 0.015 Assessment/Plan All Active Problems Chest pain (Acute) Umbilical hernia (Acute) Chronic conditions - Bipolar DO - Diabetes - Obesity - Smoking Plan - admit to PCU for observation - cycle cardiac enzymes, nuclear exercise stress test in AM - oxygen, nitroglycerin and aspirin per routine. Toradol 30mg IV q 6hrs prn pain (her reported pain is not consistent with physical findings on my exam and malingering behavior can not be ruled out so I intend to use narcotics only as a last resort) - nuclear exercise stress test in am - 14mg nicoderm patch - LMWH for DVT prophylaxis - continue routine home medications for chronic stable medical conditions. - Code Visit OBSV E&M: 22943 Initial observation care L2
--- NOTE | 2018-02-25 19:51 | DT_ITS ---
This patient was seen during an EMR downtime February 18, 2018 - February 25, 2018. This patient may have a combination of paper and electronic documentation or all paper documentation. All documentation is viewable within the e-chart portion of [employer] for each patient visit.
[2018-02-25] MEDS: Ketorolac 30 MG/ML Syringe IV (19:59)
--- NOTE | 2018-02-25 20:00 | EKG12_ITS ---
Test Reason : CP Blood Pressure : / mmHG Vent. Rate : 091 BPM Atrial Rate : 091 BPM P-R Int : 168 ms QRS Dur : 068 ms QT Int : 356 ms P-R-T Axes : 044 031 032 degrees QTc Int : 437 ms Normal sinus rhythm Low voltage QRS Borderline ECG Confirmed by CAROLINE CORNELL MD ([id number]), editorial project manager PRO SIDDIQI ([id number]) on 02/27/2018 5:17:26 PM Referred By: Confirmed By:CAROLINE CORNELL MD
[2018-02-25 20:07] VITALS: BP 134/91; PULSE 77; PULSE 78; RESP 18; O2SAT 96
[2018-02-25 20:49] VITALS: PULSE 85
[2018-02-25 21:00] VITALS: BP 131/80; PULSE 77; RESP 16; TEMP 36.7; O2SAT 100; BMI 62.8
[2018-02-25 21:21] VITALS: BMI 62.9
[2018-02-25] MEDS: Topiramate 100 MG Tablet PO (23:13)
[2018-02-25] MEDS: traZODone 100 MG Tablet 200 MG PO (23:13)
[2018-02-25] MEDS: Naproxen 500 MG Tablet PO (23:13)
[2018-02-25 23:27] VITALS: PULSE 90
[2018-02-26] VITALS (20 sets, daily range): BP systolic 101–149; BP diastolic 37–84; PULSE 64–124; RESP 16–21; TEMP 36.6–37.3; O2SAT 94–98
[2018-02-26] MEDS: Budesonide Respules 0.5 MG/2 ML AMPUL.NEB. INHALATION (01:06)
[2018-02-26] MEDS: Albuterol 2.5 MG/3 ML VIAL.NEB. INHALATION ×2 (01:06→13:24)
[2018-02-26 03:56] LABS: Hemoglobin 12.7 g/dl (12.0-15.0); Mean Corp Hgb Conc 32.6 g/gl (32-36); Mean Corpuscular Hgb 29.4 pg (27.0-32.0); Mean Corpuscular Volume 90.3 fL (81-99); Mean Platelet Vol. 9.8 fl (6.2-12.0); Platelet Count 189 K/mm3 (150-450); RBC Distribution Width CV 14.5 % (11.6-14.6); RBC Distribution Width SD 46.9 fl (35.1-43.9); Red Blood Count 4.32 M/mm3 (4.2-5.4); White Blood Count 7.2 K/mm3 (4.4-11.0)
--- NOTE | 2018-02-26 04:00 | EKG12_ITS ---
Test Reason : AM EKG Blood Pressure : / mmHG Vent. Rate : 072 BPM Atrial Rate : 072 BPM P-R Int : 180 ms QRS Dur : 080 ms QT Int : 394 ms P-R-T Axes : 057 049 041 degrees QTc Int : 431 ms Normal sinus rhythm Low voltage QRS Borderline ECG Confirmed by DONNA CAST, JORDAN ([id number]), magazine editor PRO SIDDIQI ([id number]) on 03/01/2018 1:44:01 PM Referred By: DR CARMEN Confirmed By:JORDAN THOMPSON MD
[2018-02-26 04:02] LABS: International Normalized Ratio 1.1; Prothrombin Time (Protime)PT. 14.5 SECONDS (11.7-14.9)
[2018-02-26 04:03] LABS: Partial Thromboplast Time 28.5 Seconds (24.1-36.2)
[2018-02-26 04:16] LABS: Anion Gap 5 (5-15); BUN 13 mg/dL (7-18); BUN/Creat Ratio 15.4 RATIO (10-20); Calcium,Total 8.4 mg/dL (8.5-10.1); Chloride 109 mmol/L (98-107); Creatinine, Serum 0.84 mg/dL (0.55-1.02); EST Glomerular Filtration Rate 81 mL/min (>60); Est Glom Filt Rate - Afr Amer 98 mL/min (>60); Glucose 128 mg/dL (74-106); Potassium 3.9 mmol/L (3.5-5.1); Sodium Level 143 mmol/L (136-145)
[2018-02-26 04:28] LABS: Scan Indicated on CBC? Y/N NO
[2018-02-26 04:53] LABS: Cholesterol 158 mg/dL (200); High Density Lipoprotein 26 mg/dL; Triglycerides 117 mg/dL; Very Low Density Lipoprotein 23 mg/dL (5-40)
[2018-02-26] MEDS: Aspirin E.C. 325 MG Tablet PO (05:48)
[2018-02-26 06:20] LABS: Bedside Glucose 123 mg/dL (70-110)
[2018-02-26] MEDS: Montelukast 10 MG Tablet PO (09:01)
[2018-02-26] MEDS: Dicyclomine 10 MG Capsule 20 MG PO ×2 (09:01→15:03)
[2018-02-26] MEDS: Citalopram 40 MG TABLET PO (09:01)
[2018-02-26] MEDS: metFORMIN HCl 1,000 MG Tablet 1000 MG PO (09:01)
[2018-02-26] MEDS: Loratadine 10 MG Tablet PO (09:01)
[2018-02-26] MEDS: lamoTRIgine 100 MG Tablet 200 MG PO (09:01)
[2018-02-26] MEDS: Topiramate 100 MG Tablet PO (09:01)
[2018-02-26] MEDS: buPROPion (XL) 300 MG TABLET.XL PO (09:01)
[2018-02-26] MEDS: Naproxen 500 MG Tablet PO (09:01)
[2018-02-26] MEDS: 0.9% NaCl Peripheral Flush Adult/Peds IV (09:02)
[2018-02-26] MEDS: Ketorolac 30 MG/ML Syringe IV (09:02)
--- NOTE | 2018-02-26 09:18 | STRESSREP_ITS ---
Stress Test Report Date: 02/26/2018 Procedure: Pharmacologic stress nuclear imaging study Indications: Chest pain Consent: Per the patient Procedure: The patient underwent pharmacologic (Regadenoson) evaluation with a peak heart rate of 104 beats per minute (56 predicted maximal heart rate) and a peak blood pressure of 141/82 mmHg. The baseline ECG demonstrated normal sinus rhythm. The peak pharmacologic ECG demonstrated no obvious ECG changes. [There were no cardiac dysrhythmias pretest, during pharmacologic infusion, or recovery]. [There was no complaint of chest discomfort during pharmacologic infusion or recovery]. The examination was discontinued secondary to completion of protocol. Impression: 1. Pharmacologic (Regadenoson) evaluation 2. Peak pharmacologic ECG with no obvious ECG changes. 3. There were no cardiac dysrhythmias pretest, during pharmacologic infusion, or recovery 4. Nuclear images pending Myocardial perfusion imaging study: Technique: The patient was injected with 14.8 millicuries of technetium 99m Cardiolite and subsequently rest SPECT Cardiolite nuclear imaging was obtained in the horizontal long, vertical long, and short axis views. The patient underwent pharmacologic (Regadenoson) evaluation with a peak heart rate of 104 beats per minute (56 % percent predicted maximal heart rate) and a peak blood pressure of 141/82 mmHg. The patient was injected with 44.9 millicuries of technetium 99m Cardiolite and subsequently stress SPECT Cardiolite nuclear imaging was obtained in the horizontal long, vertical long, and short axis views. A gated Cardiolite study at peak stress was obtained. Interpretation: Rest and stress SPECT Cardiolite nuclear imaging status post realignment, normalization, and attenuation correction demonstrate relative uniform tracer uptake at rest, however, status post stress there is an area of diminished tracer uptake in portions of the distal anterior and anterior apical segments. [ There is end systolic thickening and brightening]. [The gated Cardiolite study demonstrates myocardial thickening and inward wall motion]. The reported LVEF is 65 %. Impression: 1. Rest and stress SPECT Cardiolite nuclear imaging demonstrate relatively uniform tracer uptake at rest, however, status post stress there is an area of diminished tracer uptake in portions of the distal anterior and anteroapical segments potentially compatible with shifting soft tissue attenuation/artifact, however, an area of stress-induced myocardial ischemia cannot necessarily be excluded. 2. The gated Cardiolite study reports an LVEF of 65 %. This note was generated with Dragon dictation software. It may contain incorrect words, spelling, and punctuation that were not noted in checking the note before signing.
--- NOTE | 2018-02-26 12:21 | PCM.CONS.C ---
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 The patient states that for some time now she has been having chest discomfort which has worsened recently especially yesterday with very minimal activity. This discomfort has felt as a waxing and waning and then a chronic discomfort over the left chest involving the left neck and left upper extremity. She describes it as somewhat of a sharp discomfort but it also has elements of a pressure-like sensation. It has been associated with shortness of breath and dyspnea and nausea. There has been no near syncope or syncope. She presented to [facility] emergency department and was subsequently brought into the hospital for further evaluation and care. Her cardiac enzymes have been negative. Her ECGs have demonstrated sinus rhythm with no acute ECG changes. She had a follow-up pharmacologic stress nuclear imaging study which raised concerns about the possibility of shifting soft tissue attenuation/artifact versus an area of myocardial ischemia in the distal anterior and anterior apical segments. She has been referred for further evaluation with diagnostic cardiac catheterization. She has any history of orthopnea or PND. She states she has had chronic edema of the lower extremity which has been repeated to her history of diabetes mellitus. She denies any previous cardiovascular evaluation. [] Past Medical History Allergies/Adverse Reactions: Allergies melatonin Allergy (Verified 12/11/17 23:23) Hives Penicillins Allergy (Verified 12/11/17 23:23) Hives tramadol Allergy (Verified 12/11/17 23:23) Hives Home Medications: Ambulatory Orders Medication Instructions Recorded Citalopram Hydrobromide [Celexa] 60 mg PO DAILY 07/07/13 Lamotrigine [Lamictal] 200 mg PO DAILY 07/07/13 Loratadine [Claritin] 10 mg PO DAILY 07/07/13 Topiramate [Topamax] 100 mg PO BID 07/07/13 Lorazepam [Ativan] 1 mg PO BID PRN 12/11/13 Albuterol Inhaler [Ventolin Hfa] 1 puff INHALATION Q4H PRN PRN 03/26/14 Fluticasone/Salmeterol [Advair 1 puff INHALATION BID 03/26/14 250/50 Mcg Diskus] traZODone [Desyrel] 200 mg PO QHS 01/12/15 Naproxen [Naprosyn] 500 mg PO BID #10 tablet 04/23/15 Metformin HCl [Glucophage] 1,000 mg PO BIDCM 08/10/16 Montelukast [Singulair] 10 mg PO QHS 08/10/16 Sumatriptan Succinate [Imitrex] 25 mg PO .X1 PRN PRN 08/10/16 Bupropion HCl [Wellbutrin Xl] 300 mg PO DAILY 10/03/16 Dicyclomine HCl [Bentyl] 20 mg PO TIDAC #20 cap 12/12/17 Ondansetron [Zofran Odt] 4 mg PO Q8H PRN PRN #10 tab 12/12/17 Past Medical History (Chronic Problems): Chronic Problems Bipolar 1 disorder (Chronic) Diabetes (Chronic) Smoker (Chronic) Obesity (Chronic) - *Family History Maternal History Items: No pertinent history Smoking Status: Current every day smoker Alcohol: None Drugs: None Review of Systems - Review of Systems General: Denies: Fever, Night Sweats, Fatigue Cardiovascular: Reports: Chest Discomfort, Chest Discomfort at Rest, Chest Discomfort with Exertion, Shortness of Breath, Shortness of Breath at Rest, Peripheral Edema. Denies: Orthopnea, PND, Palpitations, Lightheadedness, Dizziness, Near Syncope, Syncope Respiratory: Reports: Shortness of Breath. Denies: Cough, Sputum Production, Hemoptysis Gastrointestinal: Reports: Nausea. Denies: Hematemesis, Hematochezia, Melena Genitourinary: Denies: Dysuria, Hematuria Skin: Denies: Rash Subjectve: This is a 37-year-old obese white female who appears to be resting comfortably at the moment in no acute distress. Objective: Vital Signs Temp Pulse Resp BP Pulse Ox 98.1 F 73 18 129/68 H 96 02/26/18 08:57 02/26/18 11:00 02/26/18 08:57 02/26/18 08:57 02/26/18 08:57 Oxygen Delivery Method Room Air Weight: 366 lb 3.005 oz Body Mass Index (BMI) 62.8 Intake and Output for Last 24 Hours 02/24/18 02/25/18 02/26/18 23:59 23:59 23:59 Intake Total 240 / 240 Balance 240 / 240 General: Awake, Alert, Oriented x 3, Cooperative, No Acute Distress, Obese HEENT: Atraumatic, Normocephalic, PERRL, EOMI, Sclera Non Icteric Oral: Moist Mucosa Neck: Supple, Good ROM, No JVD Lungs: Clear to auscultation Cardiovascular: Regular Rhythm, Normal S1, Normal S2 Vascular: No Carotid Bruits Abdomen: Bowel Sounds Present, Soft, Non Tender, Obese Extremities: No Cyanosis, No Clubbing, Trace RLE Edema, Trace LLE Edema Neurological: No Focal Motor or Sensory Deficit Psych/Mental Status: Appropriate, Normal Affect 02/25/18 20:00: Troponin I < 0.015 02/25/18 23:13: Troponin I < 0.015 02/26/18 03:35: Triglycerides 117, Cholesterol 158, LDL Cholesterol 109, VLDL Cholesterol 23, HDL Cholesterol 26 L 02/26/18 03:35: WBC 7.2, RBC 4.32, Hgb 12.7, Hct 39.0, MCV 90.3, MCH 29.4, MCHC 32.6, RDW 14.5, RDW Differential 46.9 H, Plt Count 189, MPV 9.8 02/26/18 03:35: PT 14.5, INR 1.1, APTT 28.5 02/26/18 03:35: Sodium 143, Potassium 3.9, Chloride 109 H, Carbon Dioxide 29.0, Anion Gap 5, BUN 13, Creatinine 0.84, Est GFR (MDRD) Af Amer 98, Est GFR (MDRD) Non-Af 81, BUN/Creatinine Ratio 15.4, Glucose 128 H, Calcium 8.4 L Rhythm: Sinus rhythm EKG: As noted above Stress Test: As noted above CXR: Preliminary evaluation: No acute cardiopulmonary disease process appreciated Assessment/Plan 1. Chest pain The patient has chest pain. She has features that are both atypical for underlying CAD and myocardial ischemia as well as potentially concerning for CAD and myocardial ischemia. This is superimposed upon cardiovascular risk factors which is included diabetes mellitus and a long-standing positive tobacco history. Her rule out [place] protocol has been negative by cardiac enzymes and ECG. However her pharmacologic stress nuclear imaging study is abnormal as noted above. At the present time she will continue to be monitored. She will continue medical therapy as deemed appropriate. Further evaluation with diagnostic cardiac catheterization was discussed with her. This included the procedure risks and benefits, etc. She was agreeable to this approach. 2. Abnormal pharmacologic stress nuclear imaging study Again she has an abnormal pharmacologic stress nuclear imaging study. This could be a false positive study secondary to shifting soft tissue attenuation/artifact especially noting her underlying body habitus. However based on her cardiovascular risk there is concern that this could represent underlying CAD and myocardial ischemia. Thus she should be considered for further evaluation as noted above. 3. Diabetes She will continue under the care of her primary care physician for this. 4. Tobacco abuse She states she has been smoking cigarettes since age 18. She is trying to cut down and stop. 5. Obesity Unfortunately the patient is obese. She does need to monitor her diet and attempt to adjust her activity to bring her weight under better control. Again, this could be a contributing factor to her stress test findings if she is not found to have underlying CAD to explain her symptoms and stress test findings. Comment: The above was discussed with the patient and she was agreeable to this approach. The patient's case is also been discussed with the [facility] staff. This note was generated with [employer] dictation software. It may contain incorrect words, spelling, and punctuation that were not noted in checking the note before signing.
--- NOTE | 2018-02-26 12:31 | CON.PCM_ITS ---
Problem List (1) Chest pain Status: Acute Qualifiers: Chest pain type: unspecified Qualified Code(s): R07.9 - Chest pain, unspecified (2) Abnormal cardiovascular stress test Status: Acute (3) Diabetes Status: Chronic Qualifiers: Diabetes mellitus type: type 2 Diabetes mellitus custodial insulin use: without french weaver use Diabetes mellitus complication status: without complication Qualified Code(s): E11.9 - Type 2 diabetes mellitus without complications (4) Smoker Status: Chronic (5) Obesity Status: Chronic Reason for Consult Date of Consultation: 02/26/18 History of Present Illness: The patient is a 37 year old white female with a past medical history which is included diabetes mellitus superimposed positive tobacco history and obesity who presents for evaluation of chest pain and an abnormal pharmacologic stress nuclear imaging study. The patient states that for some time now she has been having chest discomfort which has worsened recently especially yesterday with very minimal activity. This discomfort has felt as a waxing and waning and then a chronic discomfort over the left chest involving the left neck and left upper extremity. She describes it as somewhat of a sharp discomfort but it also has elements of a pressure-like sensation. It has been associated with shortness of breath and dyspnea and nausea. There has been no near syncope or syncope. She presented to the [facility] emergency department and was subsequently brought into the hospital for further evaluation and care. Her cardiac enzymes have been negative. Her ECGs have demonstrated sinus rhythm with no acute ECG changes. She had a follow-up pharmacologic stress nuclear imaging study which raised concerns about the possibility of shifting soft tissue attenuation/artifact versus an area of myocardial ischemia in the distal anterior and anterior apical segments. She has been referred for further evaluation with diagnostic cardiac catheterization. She has any history of orthopnea or PND. She states she has had chronic edema of the lower extremity which has been repeated to her history of diabetes mellitus. She denies any previous cardiovascular evaluation. [] Past Medical History Allergies/Adverse Reactions: Allergies melatonin Allergy (Verified 12/11/17 23:23) Hives Penicillins Allergy (Verified 12/11/17 23:23) Hives tramadol Allergy (Verified 12/11/17 23:23) Hives Home Medications: Ambulatory Orders Medication Instructions Recorded Citalopram Hydrobromide [Celexa] 60 mg PO DAILY 07/07/13 Lamotrigine [Lamictal] 200 mg PO DAILY 07/07/13 Loratadine [Claritin] 10 mg PO DAILY 07/07/13 Topiramate [Topamax] 100 mg PO BID 07/07/13 Lorazepam [Ativan] 1 mg PO BID PRN 12/11/13 Albuterol Inhaler [Ventolin Hfa] 1 puff INHALATION Q4H PRN PRN 03/26/14 Fluticasone/Salmeterol [Advair 1 puff INHALATION BID 03/26/14 250/50 Mcg Diskus] traZODone [Desyrel] 200 mg PO QHS 01/12/15 Naproxen [Naprosyn] 500 mg PO BID #10 tablet 04/23/15 Metformin HCl [Glucophage] 1,000 mg PO BIDCM 08/10/16 Montelukast [Singulair] 10 mg PO QHS 08/10/16 Sumatriptan Succinate [Imitrex] 25 mg PO .X1 PRN PRN 08/10/16 Bupropion HCl [Wellbutrin Xl] 300 mg PO DAILY 10/03/16 Dicyclomine HCl [Bentyl] 20 mg PO TIDAC #20 cap 12/12/17 Ondansetron [Zofran Odt] 4 mg PO Q8H PRN PRN #10 tab 12/12/17 Past Medical History (Chronic Problems): Chronic Problems Bipolar 1 disorder (Chronic) Diabetes (Chronic) Smoker (Chronic) Obesity (Chronic) - *Family History Maternal History Items: No pertinent history Smoking Status: Current every day smoker Alcohol: None Drugs: None Review of Systems - Review of Systems General: Denies: Fever, Night Sweats, Fatigue Cardiovascular: Reports: Chest Discomfort, Chest Discomfort at Rest, Chest Discomfort with Exertion, Shortness of Breath, Shortness of Breath at Rest, Peripheral Edema. Denies: Orthopnea, PND, Palpitations, Lightheadedness, Dizziness, Near Syncope, Syncope Respiratory: Reports: Shortness of Breath. Denies: Cough, Sputum Production, Hemoptysis Gastrointestinal: Reports: Nausea. Denies: Hematemesis, Hematochezia, Melena Genitourinary: Denies: Dysuria, Hematuria Skin: Denies: Rash Subjectve: This is a 37-year-old obese white female who appears to be resting comfortably at the moment in no acute distress. Objective: Vital Signs Temp Pulse Resp BP Pulse Ox 98.1 F 73 18 129/68 H 96 02/26/18 08:57 02/26/18 11:00 02/26/18 08:57 02/26/18 08:57 02/26/18 08:57 Oxygen Delivery Method Room Air Weight: 366 lb 3.005 oz Body Mass Index (BMI) 62.8 Intake and Output for Last 24 Hours 02/24/18 02/25/18 02/26/18 23:59 23:59 23:59 Intake Total 240 / 240 Balance 240 / 240 General: Awake, Alert, Oriented x 3, Cooperative, No Acute Distress, Obese HEENT: Atraumatic, Normocephalic, PERRL, EOMI, Sclera Non Icteric Oral: Moist Mucosa Neck: Supple, Good ROM, No JVD Lungs: Clear to auscultation Cardiovascular: Regular Rhythm, Normal S1, Normal S2 Vascular: No Carotid Bruits Abdomen: Bowel Sounds Present, Soft, Non Tender, Obese Extremities: No Cyanosis, No Clubbing, Trace RLE Edema, Trace LLE Edema Neurological: No Focal Motor or Sensory Deficit Psych/Mental Status: Appropriate, Normal Affect 02/25/18 20:00: Troponin I < 0.015 02/25/18 23:13: Troponin I < 0.015 02/26/18 03:35: Triglycerides 117, Cholesterol 158, LDL Cholesterol 109, VLDL Cholesterol 23, HDL Cholesterol 26 L 02/26/18 03:35: WBC 7.2, RBC 4.32, Hgb 12.7, Hct 39.0, MCV 90.3, MCH 29.4, MCHC 32.6, RDW 14.5, RDW Differential 46.9 H, Plt Count 189, MPV 9.8 02/26/18 03:35: PT 14.5, INR 1.1, APTT 28.5 02/26/18 03:35: Sodium 143, Potassium 3.9, Chloride 109 H, Carbon Dioxide 29.0, Anion Gap 5, BUN 13, Creatinine 0.84, Est GFR (MDRD) Af Amer 98, Est GFR (MDRD) Non-Af 81, BUN/Creatinine Ratio 15.4, Glucose 128 H, Calcium 8.4 L Rhythm: Sinus rhythm EKG: As noted above Stress Test: As noted above CXR: Preliminary evaluation: No acute cardiopulmonary disease process appreciated Assessment/Plan 1. Chest pain The patient has chest pain. She has features that are both atypical for underlying CAD and myocardial ischemia as well as potentially concerning for CAD and myocardial ischemia. This is superimposed upon cardiovascular risk factors which is included diabetes mellitus and a long-standing positive tobacco history. Her rule out MN protocol has been negative by cardiac enzymes and ECG. However her pharmacologic stress nuclear imaging study is abnormal as noted above. At the present time she will continue to be monitored. She will continue medical therapy as deemed appropriate. Further evaluation with diagnostic cardiac catheterization was discussed with her. This included the procedure risks and benefits, etc. She was agreeable to this approach. 2. Abnormal pharmacologic stress nuclear imaging study Again she has an abnormal pharmacologic stress nuclear imaging study. This could be a false positive study secondary to shifting soft tissue attenuation/ artifact especially noting her underlying body habitus. However based on her cardiovascular risk there is concern that this could represent underlying CAD and myocardial ischemia. Thus she should be considered for further evaluation as noted above. 3. Diabetes She will continue under the care of her primary care physician for this. 4. Tobacco abuse She states she has been smoking cigarettes since age 18. She is trying to cut down and stop. 5. Obesity Unfortunately the patient is obese. She does need to monitor her diet and attempt to adjust her activity to bring her weight under better control. Again, this could be a contributing factor to her stress test findings if she is not found to have underlying CAD to explain her symptoms and stress test findings. Comment: The above was discussed with the patient and she was agreeable to this approach. The patient's case is also been discussed with the [facility] staff. This note was generated with [employer] dictation software. It may contain incorrect words, spelling, and punctuation that were not noted in checking the note before signing.
--- NOTE | 2018-02-26 12:35 | CASEMGMT ---
According to [facility] website, the following are in-network tertiary facilities: [facility], [place], [facility], [place], [facility], [facility], [place], [facility], and . Tyrel MCGHEE CM
--- NOTE | 2018-02-26 12:39 | PCM.PROGNOTE ---
Patient Problems: Active and Suspected Problems Chest pain (Acute) Abnormal cardiovascular stress test (Acute) Subjective: Patient seen and examined. Continues to complain of intermittent chest pain. Underwent nuclear stress test this morning which was abnormal. Cardiology consulted. Patient denies other current complaints. - Physical Exam General: Alert, Oriented x3, Cooperative HEENT: Atraumatic, PERRLA, EOMI, Normocephalic Neck: Supple, No JVD, Negative Carotid Bruits Lungs: Clear to auscultation, Diminished Cardiovascular: Regular rate, Regular Rhythm, Normal S1, Normal S2, No murmurs Abdomen: Bowel Sounds Present, Soft, Non Tender, Non-Distended, Obese Extremities: No clubbing, No cyanosis, No edema, Capillary Refill Less than 3 Seconds Skin: No rashes, No breakdown Musculoskeletal: No Tenderness to Palpation of Joints or Extremities Neurological: Cranial nerves II-XII grossly intact, Neuro grossly intact Psych/Mental Status: Normal Affect, Appropriate Vital Signs Temp Pulse Resp BP Pulse Ox 98.1 F 73 18 129/68 H 96 02/26/18 08:57 02/26/18 11:00 02/26/18 08:57 02/26/18 08:57 02/26/18 08:57 Oxygen Delivery Method Room Air Weight: 166.1 kg Body Mass Index (BMI) 62.8 Intake and Output for Last 24 Hours 02/24/18 02/25/18 02/26/18 23:59 23:59 23:59 Intake Total 240 / 240 Balance 240 / 240 Laboratory Tests Past 24 Hrs 02/25/18 02/25/18 02/26/18 20:00 23:13 03:35 WBC RBC Hgb Hct MCV MCH MCHC RDW RDW Differential Plt Count MPV PT INR APTT Sodium Potassium Chloride Carbon Dioxide Anion Gap BUN Creatinine Est GFR (MDRD) Af Amer Est GFR (MDRD) Non-Af BUN/Creatinine Ratio Glucose Calcium Troponin I < 0.015 < 0.015 Triglycerides 117 Cholesterol 158 LDL Cholesterol 109 VLDL Cholesterol 23 HDL Cholesterol 26 L 02/26/18 02/26/18 02/26/18 03:35 03:35 03:35 WBC 7.2 RBC 4.32 Hgb 12.7 Hct 39.0 MCV 90.3 MCH 29.4 MCHC 32.6 RDW 14.5 RDW Differential 46.9 H Plt Count 189 MPV 9.8 PT 14.5 INR 1.1 APTT 28.5 Sodium 143 Potassium 3.9 Chloride 109 H Carbon Dioxide 29.0 Anion Gap 5 BUN 13 Creatinine 0.84 Est GFR (MDRD) Af Amer 98 Est GFR (MDRD) Non-Af 81 BUN/Creatinine Ratio 15.4 Glucose 128 H Calcium 8.4 L Troponin I Triglycerides Cholesterol LDL Cholesterol VLDL Cholesterol HDL Cholesterol POC Glucose 02/26/18 06:17 POC Glucose 123 H Medical Necessity - Tobacco Use Smoking Status: Current every day smoker Assessment/Plan All Active Problems Chest pain (Acute) Abnormal cardiovascular stress test (Acute) Umbilical hernia (Acute) Patient is a 37-year-old female admitted 02/25/2018 due to chest pain. She has a past medical history of tobacco dependence, bipolar disorder, type 2 diabetes mellitus, history of migraines, seasonal allergies, asthma. 1. Chest pain-troponin negative. Patient underwent nuclear stress test which was abnormal. Cardiology consulted. Patient will undergo cardiac catheterization, possibly later this afternoon. Continue aspirin. 2. Type 2 diabetes mellitus-hold home metformin. Accu-Cheks before meals at bedtime with sliding scale insulin. 3. Tobacco dependence-encourage smoking cessation. Nicotine replacement patch if desired. 4. Bipolar disorder-continue home regimen. 5. Asthma-continue home albuterol and budesonide regimen. 6. Seasonal allergies-continue home Claritin regimen. 7. History of migraines-continue home Topamax regimen. DVT prophylaxis-SCDs This patient was seen by JANNY Perez under the supervision of Dr. Hughes.
[2018-02-26] MEDS: TICAGRELOR 90 MG TABLET 180 MG PO (12:46)
--- NOTE | 2018-02-26 12:50 | NURSING ---
Called report to Mylene MCGHEE in laboratory equipment installer
[2018-02-26 13:06] LABS: Pregnancy, Serum, hCG Quali. NEGATIVE Negative (0-9 Nonpreg)
[2018-02-26 14:35] LABS: Bedside Glucose 115 mg/dL (70-110)
--- NOTE | 2018-02-26 14:54 | CL.D_ITS ---
Patient Name: ANDRES BOB Study Date: 02/26/2018 Performing: Darrion Brooks MD Ht: 64 inches 163 cm : 1980 Wt: 366.4 lbs 166 kg Age: 37 Gender: female BSA: 2.53 PROCEDURE(S) PERFORMED [id number] CLINICAL PROFILE AND INDICATIONS Indications: Worsening Angina Heart Failure: None Stress/Imaging Stress Test w/SPECT MPI: Yes Result: PositiveStress Test with SPECT MPI: Positive Angina Classification Anginal Classification w/in 2 Weeks: CCS IV CAD Presentations: Unstable angina. CONCLUSIONS Elevated Left Ventricular End Diastolic Pressure Normal LV size, wall motion,and systolic function LVEF: by LV gram 65 % Normal coronary arteries False positive pharmacologic stress nuclear study RECOMMENDATIONS Risk factor modification Medical therapy Follow up with primary care physician Non cardiovascular evaluation of chest discomfort DESCRIPTION OF PROCEDURE The patient arrived to the procedure lab. The risks and benefits of the procedure as well as a full d escription of our services here and current unavailability of surgical backup were fully explained to the patient and/or their significant other prior to the catheterization. The Timeout was completed, verifying the correct patient and procedure. The patient's procedural site was prepped and draped in the usual fashion. Local anesthetic was given subcutaneously to right radial region with Lidocaine 2% . Using a modified Seldinger technique, arterial access was obtained via the right radial artery, a 5 Fr sheath was inserted. Left Coronary Artery selective angiography was performed in multiple views u sing a 5 Fr. 4.0 [place] catheter. Right Coronary Artery selective angiography was then performed in mu ltiple views using a 5 Fr. 4.0 [place] catheter. Left Ventriculography was performed in BILLY projection using a 5 Fr. Pigtail catheter. LV to AO pullback pressures were then recorded.The arterial sheath wa s pulled and a TR Band was applied for hemostasis CORONARY ANGIOGRAPHY DOMINANCE: Right Dominant LEFT HEART ASSESSMENT Left Ventricular Ejection Fraction: by LV Gram 65 % Normal LV wall motion Elevated Left Ventricular End Diastolic Pressure LVEDP: 22 mmHg LEFT MAIN: Angiographically normal LEFT ANTERIOR DECENDING ARTERY: Angiographically normal CIRCUMFLEX ARTERY: Angiographically normal RIGHT CORONARY ARTERY: Angiographically normal VALVE FINDINGS: Normal Aortic Valve function Normal Mitral Valve function AORTIC ROOT: Angiographically normal COMPLICATIONS No Complications PROCEDURE MEDICATIONS Versed 1 mg IV Fentanyl 50 mcg IV Fentanyl 50 mcg IV Versed 1 mg IV Oxygen: 2 L/min via nasal cannula Heparin diluted in 23cc Heparinized saline. Patient given 10cc IA of this solution. 02/26/2018 14:03: 43 Verapamil 2.5mg, Ntg 100mcgs, 2000 units of Heparin diluted in 23cc Heparinized saline. Patient give n 10cc IA of this solution. 02/26/2018 14:03:43 SUMMARY OF HEMODYNAMIC DATA Time AIR REST ECG 13:49:25 AO 116/77 (97) SA 14:05:43 LV 137/-7, 18 14:13:08 LV 141/-6, 22 14:13:15 LV 130/-4, 21 14:14:30 LVp 138/-4, 23 14:14:58 AOp 121/75 (98) 14:15:03 Signed By Darrion Brooks MD On 02/26/2018 2:53:57 PM Darrion Brooks MD
--- NOTE | 2018-02-26 15:50 | PCM.DC ---
- Discharge Diagnoses Current Active Problems: Current Active and Chronic Problems Chest pain (Acute) Bipolar 1 disorder (Chronic) Diabetes (Chronic) Smoker (Chronic) Obesity (Chronic) Abnormal cardiovascular stress test (Acute) You will use the following diet at home:: Calorie/Carbohydrate Controlled (specify 1200, 1400, etc) Discharge Activity: - - Follow post-op cath instructions. Call your doctor if you observe: Shortness of breath, Dizziness, Fainting spells, Chest pain, Increased palpitations (irregular heartbeat) Allergies/Adverse Reactions: Allergies melatonin Allergy (Verified 12/11/17 23:23) Hives Penicillins Allergy (Verified 12/11/17 23:23) Hives tramadol Allergy (Verified 12/11/17 23:23) Hives Medications to take at Discharge Citalopram Hydrobromide [Celexa] 60 mg PO DAILY 07/07/13 Lamotrigine [Lamictal] 200 mg PO DAILY 07/07/13 Loratadine [Claritin] 10 mg PO DAILY 07/07/13 Topiramate [Topamax] 100 mg PO BID 07/07/13 Lorazepam [Ativan] 1 mg PO BID PRN 12/11/13 Albuterol Inhaler [Ventolin Hfa] 1 puff INHALATION Q4H PRN PRN 03/26/14 Fluticasone/Salmeterol [Advair 250/50 Mcg Diskus] 1 puff INHALATION BID 03/26/14 traZODone [Desyrel] 200 mg PO QHS 01/12/15 Naproxen [Naprosyn] 500 mg PO BID #10 tablet 04/23/15 Metformin HCl [Glucophage] 1,000 mg PO BIDCM 08/10/16 Montelukast [Singulair] 10 mg PO QHS 08/10/16 Sumatriptan Succinate [Imitrex] 25 mg PO .X1 PRN PRN 08/10/16 Bupropion HCl [Wellbutrin Xl] 300 mg PO DAILY 10/03/16 Dicyclomine HCl [Bentyl] 20 mg PO TIDAC #20 cap 12/12/17 Ondansetron [Zofran Odt] 4 mg PO Q8H PRN PRN #10 tab 12/12/17 Primary Care Physician: Verona Villarreal MD [Primary Care Provider] - Please follow up with your Primary Care Physician in: 1 Week Proposed Discharge Date: 02/26/18
--- NOTE | 2018-02-26 15:53 | DCINST_ITS ---
- Discharge Diagnoses Current Active Problems: Current Active and Chronic Problems Chest pain (Acute) Bipolar 1 disorder (Chronic) Diabetes (Chronic) Smoker (Chronic) Obesity (Chronic) Abnormal cardiovascular stress test (Acute) You will use the following diet at home:: Calorie/Carbohydrate Controlled ( specify 1200, 1400, etc) Discharge Activity: - - Follow post-op cath instructions. Call your doctor if you observe: Shortness of breath, Dizziness, Fainting spells , Chest pain, Increased palpitations (irregular heartbeat) Allergies/Adverse Reactions: Allergies melatonin Allergy (Verified 12/11/17 23:23) Hives Penicillins Allergy (Verified 12/11/17 23:23) Hives tramadol Allergy (Verified 12/11/17 23:23) Hives Medications to take at Discharge Citalopram Hydrobromide [Celexa] 60 mg PO DAILY 07/07/13 Lamotrigine [Lamictal] 200 mg PO DAILY 07/07/13 Loratadine [Claritin] 10 mg PO DAILY 07/07/13 Topiramate [Topamax] 100 mg PO BID 07/07/13 Lorazepam [Ativan] 1 mg PO BID PRN 12/11/13 Albuterol Inhaler [Ventolin Hfa] 1 puff INHALATION Q4H PRN PRN 03/26/14 Fluticasone/Salmeterol [Advair 250/50 Mcg Diskus] 1 puff INHALATION BID traZODone [Desyrel] 200 mg PO QHS 01/12/15 Naproxen [Naprosyn] 500 mg PO BID #10 tablet 04/23/15 Metformin HCl [Glucophage] 1,000 mg PO BIDCM 08/10/16 Montelukast [Singulair] 10 mg PO QHS 08/10/16 Sumatriptan Succinate [Imitrex] 25 mg PO .X1 PRN PRN 08/10/16 Bupropion HCl [Wellbutrin Xl] 300 mg PO DAILY 10/03/16 Dicyclomine HCl [Bentyl] 20 mg PO TIDAC #20 cap 12/12/17 Ondansetron [Zofran Odt] 4 mg PO Q8H PRN PRN #10 tab 12/12/17 Primary Care Physician: Verona Villarreal MD [Primary Care Provider] - Please follow up with your Primary Care Physician in: 1 Week Proposed Discharge Date: 02/26/18
--- NOTE | 2018-02-26 15:53 | PCM.DC.SUM ---
<Nanci Church - Last Filed: 02/26/18 15:57> Discharge Date and Diagnosis Date of Admission: 02/25/18 Date of Discharge: 02/26/18 - Primary Discharge Diagnosis Active and Suspected Problems 1. Noncardiac chest pain 2. False positive nuclear stress test 3. Hypertension - Secondary Discharge Diagnosis Chronic Problems Bipolar 1 disorder (Chronic) Diabetes (Chronic) Smoker (Chronic) Obesity (Chronic) Hospital Course and Treatment Imaging Results: Diagnostic Data Chest X-Ray 02/25/18 17:20 IMPRESSION: No acute cardiopulmonary process. Electronically Signed: Lizbeth Mas MD at 17:35 EDT Tel , Service support , Dr. Brooks- Cardiology Procedures: Cardiac catheterization, Stress test Summary of Care Provided: Patient is a 37-year-old female admitted 02/25/2018 due to chest pain. She has a past medical history of tobacco dependence, bipolar disorder, type 2 diabetes mellitus, history of migraines, seasonal allergies, asthma. 1. Chest pain-ACS ruled out. Troponin negative. Patient underwent nuclear stress test which was abnormal. Cardiology consulted. Patient underwent cardiac catheterization which showed normal coronary arteries. LV EF 65%. False positive pharmacologic stress nuclear study. 2. Type 2 diabetes mellitus-continue home metformin regimen. 3. Tobacco dependence-encourage smoking cessation. 4. Bipolar disorder-continue home regimen. 5. Asthma-continue home albuterol and budesonide regimen. 6. Seasonal allergies-continue home Claritin regimen. 7. History of migraines-continue home Topamax regimen. General: Alert, Oriented x3, Cooperative HEENT: Atraumatic, PERRLA, EOMI, Normocephalic Neck: Supple, No JVD, Negative Carotid Bruits Lungs: Clear to auscultation, Diminished Cardiovascular: Regular rate, Regular Rhythm, Normal S1, Normal S2, No murmurs Abdomen: Bowel Sounds Present, Soft, Non Tender, Non-Distended, Obese Extremities: No clubbing, No cyanosis, No edema, Capillary Refill Less than 3 Seconds Skin: No rashes, No breakdown Musculoskeletal: No Tenderness to Palpation of Joints or Extremities Neurological: Cranial nerves II-XII grossly intact, Neuro grossly intact Psych/Mental Status: Normal Affect, Appropriate Patient seen and examined her discharge. Physical assessment as noted above. Patient is stable for discharge home with follow-up with primary care physician in 1 week. This patient was seen by JANNY Perez under the supervision of Dr. Hughes. Discharge Diet: 1800 Calorie Control Diet, Carb Control Diet Discharge Activity: - - Follow post-op cath instructions. Call your doctor if you observe: Shortness of breath, Dizziness, Fainting spells, Chest pain, Increased palpitations (irregular heartbeat) Home Medications: Medications to take at Discharge Citalopram Hydrobromide [Celexa] 60 mg PO DAILY 07/07/13 Lamotrigine [Lamictal] 200 mg PO DAILY 07/07/13 Loratadine [Claritin] 10 mg PO DAILY 07/07/13 Topiramate [Topamax] 100 mg PO BID 07/07/13 Lorazepam [Ativan] 1 mg PO BID PRN 12/11/13 Albuterol Inhaler [Ventolin Hfa] 1 puff INHALATION Q4H PRN PRN 03/26/14 Fluticasone/Salmeterol [Advair 250/50 Mcg Diskus] 1 puff INHALATION BID 03/26/14 traZODone [Desyrel] 200 mg PO QHS 01/12/15 Naproxen [Naprosyn] 500 mg PO BID #10 tablet 04/23/15 Metformin HCl [Glucophage] 1,000 mg PO BIDCM 08/10/16 Montelukast [Singulair] 10 mg PO QHS 08/10/16 Sumatriptan Succinate [Imitrex] 25 mg PO .X1 PRN PRN 08/10/16 Bupropion HCl [Wellbutrin Xl] 300 mg PO DAILY 10/03/16 Dicyclomine HCl [Bentyl] 20 mg PO TIDAC #20 cap 12/12/17 Ondansetron [Zofran Odt] 4 mg PO Q8H PRN PRN #10 tab 12/12/17 Primary Care Physician: Verona Villarreal MD [Primary Care Provider] - Please follow up with your Primary Care Physician in: 1 Week Disposition: Home Minutes spent on discharge:: 35 Patient Condition:: Stable Medical Necessity - Tobacco Use Smoking Status: Current every day smoker Meaningful Use Info Meaningful Use Diagnoses (Choose all that apply): None applicable <Tray Hughes - Last Filed: 02/26/18 16:07> Discharge Date and Diagnosis - Secondary Discharge Diagnosis Chronic Problems Bipolar 1 disorder (Chronic) Diabetes (Chronic) Smoker (Chronic) Obesity (Chronic) Hospital Course and Treatment Summary of Care Provided: This patient was seen in conjunction with Paras SHAHID. I have independently interviewed and examined the patient and reviewed pertinent history, examination findings, laboratory and plan of management. I have reviewed the note and agree with the documented findings with the few additional points. In brief, patient is admitted for atypical chest pain, left-sided with radiation to carotids acid with shortness of breath and suspicion of angina. Patient had nuclear stress test which was read abnormal subsequently had cardiac cath. Normal coronary arteries. Patient is discharged home I have discussed my assessment with Paras SHAHID and orders have been reviewed. [] Code Visit OBSV E&M: 38758 Observation care discharge
--- NOTE | 2018-02-26 15:57 | DS.PCM_ITS ---
<Nanci Church - Last Filed: 02/26/18 15:57> Discharge Date and Diagnosis Date of Admission: 02/25/18 Date of Discharge: 02/26/18 - Primary Discharge Diagnosis Active and Suspected Problems 1. Noncardiac chest pain 2. False positive nuclear stress test 3. Hypertension - Secondary Discharge Diagnosis Chronic Problems Bipolar 1 disorder (Chronic) Diabetes (Chronic) Smoker (Chronic) Obesity (Chronic) Hospital Course and Treatment Imaging Results: Diagnostic Data Chest X-Ray 02/25/18 17:20 IMPRESSION: No acute cardiopulmonary process. Electronically Signed: Lizbeth Mas MD at 17:35 EDT Tel , Service support , Dr. Brooks- Cardiology Procedures: Cardiac catheterization, Stress test Summary of Care Provided: Patient is a 37-year-old female admitted 02/25/2018 due to chest pain. She has a past medical history of tobacco dependence, bipolar disorder, type 2 diabetes mellitus, history of migraines, seasonal allergies, asthma. 1. Chest pain-ACS ruled out. Troponin negative. Patient underwent nuclear stress test which was abnormal. Cardiology consulted. Patient underwent cardiac catheterization which showed normal coronary arteries. LV EF 65%. False positive pharmacologic stress nuclear study. 2. Type 2 diabetes mellitus-continue home metformin regimen. 3. Tobacco dependence-encourage smoking cessation. 4. Bipolar disorder-continue home regimen. 5. Asthma-continue home albuterol and budesonide regimen. 6. Seasonal allergies-continue home Claritin regimen. 7. History of migraines-continue home Topamax regimen. General: Alert, Oriented x3, Cooperative HEENT: Atraumatic, PERRLA, EOMI, Normocephalic Neck: Supple, No JVD, Negative Carotid Bruits Lungs: Clear to auscultation, Diminished Cardiovascular: Regular rate, Regular Rhythm, Normal S1, Normal S2, No murmurs Abdomen: Bowel Sounds Present, Soft, Non Tender, Non-Distended, Obese Extremities: No clubbing, No cyanosis, No edema, Capillary Refill Less than 3 Seconds Skin: No rashes, No breakdown Musculoskeletal: No Tenderness to Palpation of Joints or Extremities Neurological: Cranial nerves II-XII grossly intact, Neuro grossly intact Psych/Mental Status: Normal Affect, Appropriate Patient seen and examined her discharge. Physical assessment as noted above. Patient is stable for discharge home with follow-up with primary care physician in 1 week. This patient was seen by JANNY Perez under the supervision of Dr. Hughes. Discharge Diet: 1800 Calorie Control Diet, Carb Control Diet Discharge Activity: - - Follow post-op cath instructions. Call your doctor if you observe: Shortness of breath, Dizziness, Fainting spells , Chest pain, Increased palpitations (irregular heartbeat) Home Medications: Medications to take at Discharge Citalopram Hydrobromide [Celexa] 60 mg PO DAILY 07/07/13 Lamotrigine [Lamictal] 200 mg PO DAILY 07/07/13 Loratadine [Claritin] 10 mg PO DAILY 07/07/13 Topiramate [Topamax] 100 mg PO BID 07/07/13 Lorazepam [Ativan] 1 mg PO BID PRN 12/11/13 Albuterol Inhaler [Ventolin Hfa] 1 puff INHALATION Q4H PRN PRN 03/26/14 Fluticasone/Salmeterol [Advair 250/50 Mcg Diskus] 1 puff INHALATION BID traZODone [Desyrel] 200 mg PO QHS 01/12/15 Naproxen [Naprosyn] 500 mg PO BID #10 tablet 04/23/15 Metformin HCl [Glucophage] 1,000 mg PO BIDCM 08/10/16 Montelukast [Singulair] 10 mg PO QHS 08/10/16 Sumatriptan Succinate [Imitrex] 25 mg PO .X1 PRN PRN 08/10/16 Bupropion HCl [Wellbutrin Xl] 300 mg PO DAILY 10/03/16 Dicyclomine HCl [Bentyl] 20 mg PO TIDAC #20 cap 12/12/17 Ondansetron [Zofran Odt] 4 mg PO Q8H PRN PRN #10 tab 12/12/17 Primary Care Physician: Verona Villarreal MD [Primary Care Provider] - Please follow up with your Primary Care Physician in: 1 Week Disposition: Home Minutes spent on discharge:: 35 Patient Condition:: Stable Medical Necessity - Tobacco Use Smoking Status: Current every day smoker Meaningful Use Info Meaningful Use Diagnoses (Choose all that apply): None applicable <Tray Hughes - Last Filed: 02/26/18 16:07> Discharge Date and Diagnosis - Secondary Discharge Diagnosis Chronic Problems Bipolar 1 disorder (Chronic) Diabetes (Chronic) Smoker (Chronic) Obesity (Chronic) Hospital Course and Treatment Summary of Care Provided: This patient was seen in conjunction with Paras SHAHID. I have independently interviewed and examined the patient and reviewed pertinent history, examination findings, laboratory and plan of management. I have reviewed the note and agree with the documented findings with the few additional points. In brief, patient is admitted for atypical chest pain, left-sided with radiation to carotids acid with shortness of breath and suspicion of angina. Patient had nuclear stress test which was read abnormal subsequently had cardiac cath. Normal coronary arteries. Patient is discharged home I have discussed my assessment with Paras SHAHID and orders have been reviewed. [] Code Visit OBSV E&M: 32681 Observation care discharge
== END 2018-02-26 15:52 | disposition home or self-care (01) ==
LOC: ED 18:01 → PCU 20:01
PROVIDERS: Internal Medicine Cardiovascular Disease; Admitting Provider Family Medicine; Emergency Provider Emergency Medicine; Family Provider Internal Medicine; PCP Internal Medicine; Visit Provider Internal Medicine
DX: R07.89 Other chest pain (principal); E11.9 Type 2 diabetes mellitus without complications; R94.39 Abnormal result of other cardiovascular function study; E66.9 Obesity, unspecified; Z68.44 Body mass index [BMI] 60.0-69.9, adult; Z71.3 Dietary counseling and surveillance; F17.210 Nicotine dependence, cigarettes, uncomplicated; R06.02 Shortness of breath; R60.0 Localized edema; Z79.899 Other long term (current) drug therapy; Z79.84 Long term (current) use of oral hypoglycemic drugs; F31.9 Bipolar disorder, unspecified; J45.909 Unspecified asthma, uncomplicated; G43.909 Migraine, unspecified, not intractable, without status migrainosus
CPT/HCPCS: 36415; 71045; 78452; 80048; 80061; 82962; 84484; 84703; 85025; 85027; 85379; 85610; 85730; 93005; 93017; 93458; 94640; 94660; 96374; 96375; 96376; 99152; 99153; 99218; 99285; 99406; A9500; Q9967; A4216; C1769; C1894; G0378; J2405; J2785

== ENCOUNTER 2018-03-07 19:16 | Emergency (ER) | payer MEDICAID, SELFPAY ==
[2018-03-07 19:17] VITALS: BP 127/95; PULSE 91; RESP 14; TEMP 36.9; O2SAT 99; BMI 63.0
--- NOTE | 2018-03-07 19:43 | EKG12_ITS ---
Test Reason : DYSRHYTHMIA Blood Pressure : / mmHG Vent. Rate : 082 BPM Atrial Rate : 082 BPM P-R Int : 172 ms QRS Dur : 072 ms QT Int : 372 ms P-R-T Axes : 052 032 038 degrees QTc Int : 434 ms Normal sinus rhythm Low voltage QRS Borderline ECG Confirmed by DANIELA YORK ([id number]), editorial clerk ISELA GRISSOM ([id number]) on 03/11/2018 10:16:45 AM Referred By: CALEB Confirmed By:DANIELA YORK
[2018-03-07 20:04] LABS: Absolute Lymphocyte Count 2.19 X10^3/ul (0.83-4.51); Absolute Neutrophil Count 4.6 X10^3/uL (2.0-7.7); Basophil# 0.02 X10^3/uL; Basophil% 0.3 % (0-1); Eosinophil# 0.21 X10^3/uL; Eosinophils% 2.8 % (0-5); Hematocrit 46.3 % (37-47); Hemoglobin 15.4 g/dl (12.0-15.0); Lymphocyte # 2.19 X10^3/ul (4.0); Lymphocyte % 29.6 % (19-41); Mean Corp Hgb Conc 33.3 g/gl (32-36); Mean Corpuscular Hgb 29.5 pg (27.0-32.0); Mean Corpuscular Volume 88.7 fL (81-99); Mean Platelet Vol. 9.7 fl (6.2-12.0); Monocyte% 5.4 % (0-10); Neutrophil # 4.57 X10^3/uL (2.7-7.7); Neutrophil % 61.8 % (47-70); Platelet Count 180 K/mm3 (150-450); RBC Distribution Width CV 14.5 % (11.6-14.6); Red Blood Count 5.22 M/mm3 (4.2-5.4); White Blood Count 7.4 K/mm3 (4.4-11.0)
[2018-03-07 20:07] LABS: POSITIVE COUNT NO; POSITIVE DIFFERENTIAL NO; POSITIVE MORPHOLOGY NO
[2018-03-07 20:17] LABS: ALB/GLOB Ratio 0.9 RATIO (0.9-2.4); AST(SGOT) 59 U/L (15-37); Alanine Aminotransfer ALT/SGPT 69 U/L (13-56); Albumin, Serum 3.7 g/dL (3.2-5.0); Alkaline Phosphatase 109 U/L (45-117); Anion Gap 7 (5-15); BUN 8 mg/dL (7-18); BUN/Creat Ratio 9.8 RATIO (10-20); Calcium,Total 8.7 mg/dL (8.5-10.1); Chloride 109 mmol/L (98-107); Creatinine, Serum 0.82 mg/dL (0.55-1.02); EST Glomerular Filtration Rate 84 mL/min (>60); Est Glom Filt Rate - Afr Amer 101 mL/min (>60); Globulin 3.9 g/dL (2.2-4.2); Glucose 112 mg/dL (74-106); Potassium 4.5 mmol/L (3.5-5.1); Protein, Total 7.6 g/dL (6.4-8.2); Sodium Level 139 mmol/L (136-145)
[2018-03-07 20:39] LABS: Amphetamine Urine VISTA NEGATIVE (<1000 ng/mL); Barbiturate Urine VISTA NEGATIVE (< 200 ng/mL); Benzodiazepine Urine VISTA NEGATIVE (< 200 ng/mL); Cocaine Urine VISTA NEGATIVE (< 300 ng/mL); Ecstacy Urine VISTA NEGATIVE (< 500 ng/mL); Methadone Urine VISTA NEGATIVE (< 300 ng/mL); PCP Urine VISTA NEGATIVE (< 25 ng/mL); THC Urine VISTA NEGATIVE (< 50 ng/mL); Vista UDS pH Range 6
[2018-03-07 21:04] LABS: Pregnancy, Serum, hCG Quali. NEGATIVE Negative (0-9 Nonpreg)
--- NOTE | 2018-03-07 21:38 | ED.DCSUM_ITS ---
- ER Visit Summary Date of Service: 03/07/18 Chief Complaint: Altered mental status History of Present Illness: The patient is a 37 F who states that she was sitting conversing with family and friends when she started to feel lightheaded and got worse when she could. States she sat back down and zoned out. She was not very responsive for family EMS got there and administered Narcan and she woke up. However the patient clearly remembers all of this. The patient denies taking any Tylenol with 3 which she takes normally for her back. She also denies taking any Ativan which she normally takes. Patient was recently in the hospital for chest pain and negative heart catheterization following a false positive stress test. Physical Examination: Afebrile vital signs are stable Gen: Well-nourished well-developed Head: Normocephalic atraumatic Eyes: Perrl EOMI ENT: TMs clear no rhinorrhea moist mucous membranes Neck: Supple no lymphadenopathy no JVD nontender CVS: Regular rate rhythm no murmurs normal S1-S2 Respiratory: No distress clear to auscultation bilaterally chest nontender Abdomen: Soft nontender nondistended normal bowel sounds no masses Back: Nontender Extremity: Nontender no edema Skin: Normal color no rash Neuro: alert orientated ?3 CN II-XII intact normal strength sensation reflexes gait cerebellar Psych: Normal affect normal mood Test Results: EKG sinus at a rate of 82 unchanged from prior. CBC chemistries liver negative. Patency does negative. Toxicology did not reveal any opiates or benzodiazepines in her system. Emergency Department Course and Treatment: I cannot explain the patient's events tonight. Does not make any sense to me that she would be unresponsive but still remember EMS arriving and given her Narcan. Does not make sense that Narcan will work on her when she does not have opiates in her system. At this point patient was observed and she will be discharged home. She may follow-up with her doctor as scheduled on Sunday. Impression: 1. Transient altered mental status This note was generated with [employer] dictation software. It may contain incorrect words, spelling, and punctuation that were not noted in review of the chart prior to signing ED Disposition - Plan for ED Patient: Disposition: Home or Assisted Living Chief Complaint: Overdose Instructions: ED Altered Loc Referrals: Verona Villarreal MD [Primary Care Provider] - As soon as possible
[2018-03-07 21:59] VITALS: BP 119/86; PULSE 76; RESP 19; O2SAT 97
== END 2018-03-07 22:00 | disposition home or self-care (01) ==
PROVIDERS: Emergency Provider Emergency Medicine; Family Provider Internal Medicine; PCP Internal Medicine
DX: R41.82 Altered mental status, unspecified (principal); R42 Dizziness and giddiness; E11.9 Type 2 diabetes mellitus without complications; M54.9 Dorsalgia, unspecified; G89.29 Other chronic pain; F31.9 Bipolar disorder, unspecified; E66.9 Obesity, unspecified; Z72.0 Tobacco use; Z79.84 Long term (current) use of oral hypoglycemic drugs; Z79.1 Long term (current) use of non-steroidal anti-inflammatories (NSAID); Z79.899 Other long term (current) drug therapy
CPT/HCPCS: 80053; 80307; 84703; 85025; 93005; 99285; J7030

== ENCOUNTER 2018-06-07 12:49 | Emergency (ER) | payer MEDICAID, SELFPAY ==
[2018-06-07 12:50] VITALS: BP 127/98; PULSE 98; RESP 20; TEMP 37.1; O2SAT 100; BMI 61.1
[2018-06-07] MEDS: DiphenhydrAMINE 50 MG/ML Syringe 25 MG IV (13:41)
[2018-06-07] MEDS: 0.9% Normal Saline 1,000 ML 999 ML IV (13:41)
[2018-06-07] MEDS: proCHLORPERazine 10 MG/2 ML Vial IV (13:41)
[2018-06-07] MEDS: Ketorolac 30 MG/ML Syringe IV (13:41)
--- NOTE | 2018-06-07 14:03 | ED.VISSUMM ---
- ER Visit Summary Date of Service: 06/07/18 Chief Complaint: Migraine headache History of Present Illness: The patient is a 37 F with a history of migraines presenting with what she describes as her typical migraine headache. It started gradually yesterday afternoon. It is not the worst headache of her life. Not sudden or severe at onset. No thunderclap headache. Not different in character or location than her typical headache. She is nauseated, vomiting, and has photophobia which is typical of her migraines as well. Physical Examination: Vitals are within normal limits. She is not in distress. Neck is supple. Heart tones are regular and without murmur. Lungs are clear bilaterally. Abdomen is soft and nontender. Neurologic exam is normal. Test Results: None performed Emergency Department Course and Treatment: She was given IV fluids, Benadryl, Compazine, and Toradol. Her pain resolved. She is tolerating p.o. Neurologic exam remains normal. She states that she has had multiple head CTs. The headache is not different in character than her usual migraine and she does not feel she needs imaging. Given her well appearance, I would agree with this. She will follow closely with her doctor and return if she is any worse. Treatment Plan: Follow up closely with her doctor Disposition: Home in stable condition Impression: Initial encounter acute on chronic migraine This note was generated with [employer] dictation software. It may contain incorrect words, spelling, and punctuation that were not noted in review of the chart prior to signing ED Disposition - Plan for ED Patient: Chief Complaint: Headache Instructions: ED Headache Migraine Referrals: Verona Villarreal MD [Primary Care Provider] -
[2018-06-07] MEDS: proMETHazine 25 MG/ML Syringe 6.25 MG IV (14:43)
[2018-06-07] MEDS: Morphine 4 MG/ML Syringe IV (14:43)
== END 2018-06-07 14:55 | disposition home or self-care (01) ==
PROVIDERS: Emergency Provider Emergency Medicine; Family Provider Internal Medicine; PCP Internal Medicine
DX: G43.909 Migraine, unspecified, not intractable, without status migrainosus (principal); G89.29 Other chronic pain; E11.9 Type 2 diabetes mellitus without complications; J45.909 Unspecified asthma, uncomplicated; Z79.84 Long term (current) use of oral hypoglycemic drugs; Z79.1 Long term (current) use of non-steroidal anti-inflammatories (NSAID); Z79.899 Other long term (current) drug therapy
CPT/HCPCS: 96361; 96374; 96375; 99283; J7030; A4216

== ENCOUNTER 2018-06-12 14:17 | Emergency (ER) | payer MEDICAID, SELFPAY ==
[2018-06-12 14:21] VITALS: BP 132/88; PULSE 91; RESP 18; TEMP 36.8; O2SAT 96; BMI 60.0
--- NOTE | 2018-06-12 14:45 | RAD_ITS ---
STUDY: X-RAY - RIGHT KNEE REASON FOR EXAM: Female, 37 years old. RIGHT KNEE AND HIP PAIN AFTER FALL TECHNIQUE: 4 view(s) of the knee. COMPARISON: None. FINDINGS: Normal visualized distal femur. Normal visualized proximal tibia and fibula. Normal proximal tibiofibular articulation. Normal medial femorotibial compartment. Normal lateral femorotibial compartment. Normal patellofemoral articulation. The soft tissue structures are unremarkable. RAD/Knee 4 or More Views IMPRESSION: Normal x-ray examination of the knee. Electronically Signed: Tom Heramn MD at 16:33 EDT , Service support ,
[2018-06-12 15:10] LABS: Mucous, Urine 0 SEEN /hpf (<or=2+); Red Blood Cells-Urine 0 SEEN /hpf (0-5)
[2018-06-12 15:11] LABS: Color, Urine Yellow (Yellow); Glucose, Dipstick Normal (Normal); Ketone-Dipstick Negative (Negative); Leukocyte Esterase-Dipstick 25 /ul (Negative); Nitrite-Dipstick Negative (Negative); Occult Blood-Urine Negative /ul (Negative); Protein-Dipstick Negative (Negative); Specific Gravity, Urine 1.015 (1.002-1.030); Urine Bilirubin Dipstick Negative (Negative); Urine Clarity Clear (Clear); Urine Urobilinogen 1 mg/dl (Normal)
[2018-06-12 15:18] LABS: Bacteria 1+ /hpf (None Seen); Squamous Epithelial Cells - UA 0-5 SEEN /hpf (5-10); White Blood Cells 0-5 SEEN /hpf (0-5)
[2018-06-12] MEDS: Ondansetron 4 MG/2 ML Vial IV (15:20)
[2018-06-12] MEDS: 0.9% Normal Saline 1,000 ML 1000 ML IV (15:20)
[2018-06-12 15:44] LABS: Absolute Lymphocyte Count 2.25 X10^3/ul (0.83-4.51); Absolute Neutrophil Count 4.1 X10^3/uL (2.0-7.7); Basophil# 0.03 X10^3/uL; Basophil% 0.4 % (0-1); Eosinophil# 0.19 X10^3/uL; Eosinophils% 2.7 % (0-5); Hematocrit 42.1 % (37-47); Hemoglobin 13.8 g/dl (12.0-15.0); Lymphocyte # 2.25 X10^3/ul (4.0); Lymphocyte % 32.2 % (19-41); Mean Corp Hgb Conc 32.8 g/gl (32-36); Mean Corpuscular Hgb 29.6 pg (27.0-32.0); Mean Corpuscular Volume 90.3 fL (81-99); Mean Platelet Vol. 9.6 fl (6.2-12.0); Monocyte# 0.36 X10^3/uL; Monocyte% 5.2 % (0-10); Neutrophil # 4.13 X10^3/uL (2.7-7.7); Neutrophil % 59.2 % (47-70); Platelet Count 207 K/mm3 (150-450); RBC Distribution Width CV 14.2 % (11.6-14.6); RBC Distribution Width SD 46.1 fl (35.1-43.9); Red Blood Count 4.66 M/mm3 (4.2-5.4)
--- NOTE | 2018-06-12 15:46 | ED.VISSUMM ---
- ER Visit Summary Date of Service: 06/12/18 Chief Complaint: Sick History of Present Illness: The patient is a 37 F that has not felt well since yesterday. She sustained a mechanical slip yesterday and injured her right hip and right knee. She did not hit her head or neck. She did not lose consciousness. She complains of severe nausea. No abdominal pain or other GI symptoms. No fevers. She had similar symptoms in the past but never this bad. She has a history of sleep apnea, bipolar, depression, GI problems, diabetes, and asthma. She said her sugars run around 150. Physical Examination: Afebrile and vital signs unremarkable. Patient is alert and oriented. Appears uncomfortable and is clutching an emesis bag but is otherwise in no acute distress. HEENT exam unremarkable. Head and neck atraumatic. Heart regular rate and rhythm. Lungs clear. Abdomen soft and nontender. Right hip and right knee diffusely tender to palpation. No deformity. Good range of motion. No laxity. Neurovascular intact distally. Skin appears normal in color without diaphoresis or pallor. Test Results: Laboratory studies are pending. Urinalysis was unremarkable. X-rays of the right hip and knee are pending. Emergency Department Course and Treatment: Patient treated with fluids, Zofran, and Tylenol while awaiting results. Urinalysis is unremarkable. We are still checking to see if she might be . I did check labs given her symptoms and her history of diabetes. X-rays are pending. The oncoming doctor will check CBC, CMP, lipase, hCG, right hip x-ray, and right knee x-ray. If everything is unremarkable and the test is negative, the patient will be treated with a course of Phenergan, and she may use anti-inflammatories for pain. Follow-up with primary care. Treatment Plan: As above Disposition: Discharge pending further evaluation Impression: 1. Nausea 2. Right hip pain 3. right knee pain This note was generated with [employer] dictation software. It may contain incorrect words, spelling, and punctuation that were not noted in review of the chart prior to signing ED Disposition - Plan for ED Patient: Chief Complaint: General Illness Instructions: ED Nausea Vomiting Prescriptions: proMETHazine tablet [Phenergan] 25 mg PO Q6H PRN PRN #10 tab PRN Reason: Nausea Referrals: Verona Villarreal MD [Primary Care Provider] -
[2018-06-12 15:49] LABS: ALB/GLOB Ratio 0.9 RATIO (0.9-2.4); AST(SGOT) 104 U/L (15-37); Alanine Aminotransfer ALT/SGPT 96 U/L (13-56); Albumin, Serum 3.3 g/dL (3.2-5.0); Alkaline Phosphatase 104 U/L (45-117); Anion Gap 5 (5-15); BUN 11 mg/dL (7-18); BUN/Creat Ratio 14.2 RATIO (10-20); Calcium,Total 8.4 mg/dL (8.5-10.1); Chloride 108 mmol/L (98-107); Creatinine, Serum 0.78 mg/dL (0.55-1.02); EST Glomerular Filtration Rate 89 mL/min (>60); Est Glom Filt Rate - Afr Amer 108 mL/min (>60); Globulin 3.8 g/dL (2.2-4.2); Glucose 121 mg/dL (74-106); Lipase 277 U/L (73-393); Potassium 4.2 mmol/L (3.5-5.1); Protein, Total 7.1 g/dL (6.4-8.2); Sodium Level 139 mmol/L (136-145)
--- NOTE | 2018-06-12 15:49 | ED.DCSUM_ITS ---
- ER Visit Summary Date of Service: 06/12/18 Chief Complaint: Sick History of Present Illness: The patient is a 37 F that has not felt well since yesterday. She sustained a mechanical slip yesterday and injured her right hip and right knee. She did not hit her head or neck. She did not lose consciousness. She complains of severe nausea. No abdominal pain or other GI symptoms. No fevers. She had similar symptoms in the past but never this bad. She has a history of sleep apnea, bipolar, depression, GI problems, diabetes, and asthma. She said her sugars run around 150. Physical Examination: Afebrile and vital signs unremarkable. Patient is alert and oriented. Appears uncomfortable and is clutching an emesis bag but is otherwise in no acute distress. HEENT exam unremarkable. Head and neck atraumatic. Heart regular rate and rhythm. Lungs clear. Abdomen soft and nontender. Right hip and right knee diffusely tender to palpation. No deformity. Good range of motion. No laxity. Neurovascular intact distally. Skin appears normal in color without diaphoresis or pallor. Test Results: Laboratory studies are pending. Urinalysis was unremarkable. X- rays of the right hip and knee are pending. Emergency Department Course and Treatment: Patient treated with fluids, Zofran, and Tylenol while awaiting results. Urinalysis is unremarkable. We are still checking to see if she might be . I did check labs given her symptoms and her history of diabetes. X- rays are pending. The oncoming doctor will check CBC, CMP, lipase, hCG, right hip x-ray, and right knee x-ray. If everything is unremarkable and the test is negative, the patient will be treated with a course of Phenergan, and she may use anti- inflammatories for pain. Follow-up with primary care. Treatment Plan: As above Disposition: Discharge pending further evaluation Impression: 1. Nausea 2. Right hip pain 3. right knee pain This note was generated with [employer] dictation software. It may contain incorrect words, spelling, and punctuation that were not noted in review of the chart prior to signing ED Disposition - Plan for ED Patient: Chief Complaint: General Illness Instructions: ED Nausea Vomiting Prescriptions: proMETHazine tablet [Phenergan] 25 mg PO Q6H PRN PRN #10 tab PRN Reason: Nausea Referrals: Verona Villarreal MD [Primary Care Provider] -
[2018-06-12 15:52] LABS: Differential Indicated SCAN CRITERIA MET; POSITIVE COUNT NO; POSITIVE DIFFERENTIAL NO; POSITIVE MORPHOLOGY YES
[2018-06-12 15:54] LABS: Pregnancy, Serum, hCG Quali. NEGATIVE Negative (0-9 Nonpreg)
--- NOTE | 2018-06-12 16:10 | RAD_ITS ---
STUDY: X-RAY - PELVIS AND RIGHT HIP REASON FOR EXAM: Female, 37 years old. RIGHT KNEE AND HIP PAIN AFTER FALL TECHNIQUE: Radiological exam, hip, unilateral, with pelvis when performed; 2 or 3 views. COMPARISON: None. FINDINGS: There is a non-specific bowel gas pattern. Normal visualized soft tissue structures. Normal bilateral iliac wings, sacroiliac joints and visualized sacrum. Normal bilateral superior and inferior pubic rami. Normal pubic symphysis. Normal bilateral ischial tuberosities. Normal visualized femoral head. Normal acetabulum. Normal hip joint. RAD/HIP, UNI W/ Pelvis 2-3 Views IMPRESSION: Normal x-ray examination of the pelvis and hip. Electronically Signed: Tom Herman MD at 16:34 EDT , Service support ,
[2018-06-12 16:19] VITALS: RESP 16
[2018-06-12] MEDS: Acetaminophen 500 MG Tablet 1000 MG PO (16:19)
[2018-06-12 18:00] VITALS: RESP 16
--- NOTE | 2018-06-12 18:09 | ED.VISSUMM ---
- ER Visit Summary Date of Service: 06/12/18 Chief Complaint: [] History of Present Illness: The patient is a 37 F [] Physical Examination: [] Test Results: [] Emergency Department Course and Treatment: [] Treatment Plan: [] Disposition: [] Impression: [] This note was generated with [employer] dictation software. It may contain incorrect words, spelling, and punctuation that were not noted in review of the chart prior to signing ED Disposition - Plan for ED Patient: Chief Complaint: General Illness Instructions: ED Nausea Vomiting Prescriptions: proMETHazine tablet [Phenergan] 25 mg PO Q6H PRN PRN #10 tab PRN Reason: Nausea Nitrofurantoin Macrocrystals [Macrobid] 100 mg PO Q12 #10 cap Referrals: Verona Villarreal MD [Primary Care Provider] -
[2018-06-12 18:23] VITALS: BP 120/82; PULSE 88; RESP 18; O2SAT 95
--- NOTE | 2018-06-12 18:24 | ED.RN ---
REVIEWED D/C INSTRUCTIONS, FOLLOW UP CARE, PRESCRIPTIONS, AND S/S THAT WOULD WARRANT A RETURN TO THE ED WITH PT. PT VERBALIZED AN UNDERSTANDING AND DENIES FURTHER QUESTIONS FOR THIS RN. PT SKIN P/W/D, RESP EVEN AND UNLABORED, PT A&O X 3, NO DISTRESS NOTED. PT AMBULATED OUT OF ED, GAIT STEADY.
== END 2018-06-12 18:24 | disposition home or self-care (01) ==
PROVIDERS: Emergency Provider Emergency Medicine; Family Provider Internal Medicine; PCP Internal Medicine
DX: R11.2 Nausea with vomiting, unspecified (principal); M25.551 Pain in right hip; M25.561 Pain in right knee; R82.71 Bacteriuria; E11.9 Type 2 diabetes mellitus without complications; J45.909 Unspecified asthma, uncomplicated; G47.33 Obstructive sleep apnea (adult) (pediatric); F31.9 Bipolar disorder, unspecified; F17.210 Nicotine dependence, cigarettes, uncomplicated; Z79.84 Long term (current) use of oral hypoglycemic drugs; Z79.1 Long term (current) use of non-steroidal anti-inflammatories (NSAID); Z79.899 Other long term (current) drug therapy
CPT/HCPCS: 73502; 73564; 80053; 81001; 83690; 84703; 85025; 96361; 96374; 99285; J7030; A4216; J2405

== ENCOUNTER 2018-06-26 17:21 | Emergency (ER) | payer MEDICAID, SELFPAY ==
[2018-06-26 17:22] VITALS: BP 138/79; PULSE 92; RESP 16; TEMP 36.1; O2SAT 95; BMI 60.0
--- NOTE | 2018-06-26 18:31 | US_ITS ---
STUDY: ABDOMINAL ULTRASOUND - RIGHT UPPER QUADRANT REASON FOR VISIT: Female, 37 years old. Abdominal pain. TECHNIQUE: Ultrasound evaluation of the right upper quadrant was performed with real-time and static boyce-scale imaging. TECHNICAL QUALITY: Adequate. COMPARISON: Gallbladder 11/14/2017. CT abdomen 09/19/2017. FINDINGS: Liver: The liver measures 22.7 cm. There is increased echogenicity consistent with fatty infiltration. The bile ducts are within normal limits. The direction of portal flow is hepatopetal. There is no demonstrated mass lesion. Gallbladder: Normal distended gallbladder. The gallbladder wall measures 3 mm. There is a negative sonographic Jain's sign. There is no pericholecystic fluid. Mild dependent sludge is noted in the gallbladder. Common Bile Duct (C.B.D.): The common bile duct measures 4 mm. Pancreas: Demonstrated portions of the pancreas are unremarkable. The tail is poorly seen. There is normal echogenicity of the pancreas. There is no demonstrated pancreatic mass or cyst. Right Kidney: Normal size of the right kidney. The right kidney measures 14.3 x 5.2 x 6.3 cm. Normal renal cortex. The right cortex measures 1.3 cm. There is no demonstrated renal mass or cyst. There is no right hydronephrosis. US/Gallbladder IMPRESSION: 1. Gallbladder sludge. No evidence of acute cholecystitis. 2. Hepatomegaly and steatosis. Electronically Signed: Kailee Montero MD at 19:52 EDT Tel , Service support ,
[2018-06-26 18:56] LABS: Absolute Lymphocyte Count 3.16 X10^3/ul (0.83-4.51); Absolute Neutrophil Count 4.2 X10^3/uL (2.0-7.7); Basophil# 0.04 X10^3/uL; Basophil% 0.5 % (0-1); Eosinophil# 0.19 X10^3/uL; Eosinophils% 2.4 % (0-5); Hematocrit 43.4 % (37-47); Hemoglobin 14.5 g/dl (12.0-15.0); Lymphocyte # 3.16 X10^3/ul (4.0); Lymphocyte % 39.2 % (19-41); Mean Corp Hgb Conc 33.4 g/gl (32-36); Mean Corpuscular Hgb 29.8 pg (27.0-32.0); Mean Corpuscular Volume 89.1 fL (81-99); Mean Platelet Vol. 9.7 fl (6.2-12.0); Monocyte# 0.49 X10^3/uL; Monocyte% 6.1 % (0-10); Neutrophil # 4.17 X10^3/uL (2.7-7.7); Neutrophil % 51.6 % (47-70); POSITIVE COUNT NO; POSITIVE DIFFERENTIAL NO; POSITIVE MORPHOLOGY NO; Platelet Count 192 K/mm3 (150-450); RBC Distribution Width CV 14.4 % (11.6-14.6); RBC Distribution Width SD 46.9 fl (35.1-43.9); Red Blood Count 4.87 M/mm3 (4.2-5.4); White Blood Count 8.1 K/mm3 (4.4-11.0)
[2018-06-26] MEDS: Ondansetron 4 MG/2 ML Vial IV (18:58)
[2018-06-26] MEDS: 0.9% Normal Saline 1,000 ML 125 ML IV (18:58)
[2018-06-26 19:10] LABS: ALB/GLOB Ratio 0.9 RATIO (0.9-2.4); AST(SGOT) 68 U/L (15-37); Alanine Aminotransfer ALT/SGPT 84 U/L (13-56); Albumin, Serum 3.4 g/dL (3.2-5.0); Alkaline Phosphatase 101 U/L (45-117); Anion Gap 7 (5-15); BUN 15 mg/dL (7-18); BUN/Creat Ratio 19.1 RATIO (10-20); Calcium,Total 8.7 mg/dL (8.5-10.1); Chloride 108 mmol/L (98-107); Creatinine, Serum 0.78 mg/dL (0.55-1.02); EST Glomerular Filtration Rate 88 mL/min (>60); Est Glom Filt Rate - Afr Amer 106 mL/min (>60); Globulin 3.8 g/dL (2.2-4.2); Glucose 99 mg/dL (74-106); Lipase 385 U/L (73-393); Potassium 3.8 mmol/L (3.5-5.1); Protein, Total 7.2 g/dL (6.4-8.2); Sodium Level 137 mmol/L (136-145)
[2018-06-26 19:31] VITALS: BP 128/74; PULSE 102; RESP 14; O2SAT 99
[2018-06-26 20:00] LABS: Mucous, Urine 0 SEEN /hpf (<or=2+); Red Blood Cells-Urine 0 SEEN /hpf (0-5)
[2018-06-26 20:01] LABS: Color, Urine Yellow (Yellow); Glucose, Dipstick Normal (Normal); Ketone-Dipstick Negative (Negative); Leukocyte Esterase-Dipstick 100 /ul (Negative); Nitrite-Dipstick Negative (Negative); Occult Blood-Urine Negative /ul (Negative); Protein-Dipstick Negative (Negative); Urine Bilirubin Dipstick Negative (Negative); Urine Clarity Sl. Cloudy (Clear); Urine Urobilinogen 1 mg/dl (Normal)
[2018-06-26 20:22] LABS: Squamous Epithelial Cells - UA 0-5 SEEN /hpf (5-10); White Blood Cells 5-10 SEEN /hpf (0-5)
[2018-06-26 20:23] LABS: Bacteria 1+ /hpf (None Seen)
--- NOTE | 2018-06-26 21:23 | ED.DCSUM_ITS ---
- ER Visit Summary Date of Service: 06/26/18 Chief Complaint: [ vomiting] History of Present Illness: The patient is a 37 F [resents the emergency department with vomiting that started this morning. Patient initially denied any abdominal pain. She denies urinary symptoms. She does not believe she is as she has not missed a period. Patient denies fever. Patient is a diabetic type II. Patient has history of depression, anxiety, and bipolar disorder. Patient has a history of asthma. Patient denies any diarrhea. She denies any blood in her stool or black tarry stool.] Physical Examination: [HEENT-PERRLA, EOMI. Cranial nerves II through XII grossly intact. TMs clear. Mucous membranes moist. No adenopathy. Cardiovascular-regular rate and rhythm without murmur or ectopy Lungs-clear to auscultation, chest wall stable without crepitus or subcu emphysema Abdomen-normoactive bowel sounds, soft. Patient is morbidly obese. Exam limited secondary to patient's large body habitus. Patient does have tenderness palpation over right upper quadrant with some guarding. No significant tenderness over the right lower quadrant. There is no rebound, rigidity, or perineal signs. Extremities-intact ?4, normal range of motion, normal pulses, atraumatic] Test Results: [CBC with differential obtained showed a white blood cell count of 8.1, hemoglobin 14, hematocrit 43, platelets 192. History is were unremarkable. LFTs showed a slight elevation in her L ALT which was 84 and AST was 68. Urinalysis showed 100 leukocyte esterase, 5-10 WBCs, and +1 bacteria. Urine was sent for culture. Since patient is asymptomatic no antibiotics were started. Ultrasound of the gallbladder showed sludge but no evidence for cholecystitis.] Emergency Department Course and Treatment: [Patient was medicated with antiemetics and felt much improved. Patient was given normal saline. On repeat examination at 2119 patient still with some discomfort of the right mid to upper abdomen and some mild discomfort over the right lower quadrant over McBurney's. I recommended obtaining a CT scan of the abdomen and pelvis to evaluate further as I do not have a clear-cut etiology for her abdominal discomfort and vomiting. 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 She understands I cannot rule out appendicitis or kidney stone or other etiology of her abdominal pain without further testing. Patient is refusing this.] Treatment Plan: [Patient will be given a prescription for Zofran. Patient advised to return to the emergency department if persistent pain, fever, vomiting, or condition should worsen in any way.] Disposition: [Discharged home in stable condition] Impression: [Abdominal pain-etiology uncertain] This note was generated with [employer] dictation software. It may contain incorrect words, spelling, and punctuation that were not noted in review of the chart prior to signing ED Disposition - Plan for ED Patient: Chief Complaint: Nausea/Vomiting Referrals: Verona Villarreal MD [Primary Care Provider] -
--- NOTE | 2018-06-26 21:23 | ED.DEP ---
ED Disposition - Plan for ED Patient: Chief Complaint: Nausea/Vomiting Instructions: ED Abdominal Pain Unkn Cause Prescriptions: Ondansetron [Zofran Odt] 4 mg PO Q8H PRN PRN #10 tab PRN Reason: Nausea Referrals: Verona Villarreal MD [Primary Care Provider] - 1-2 Days if not improving
[2018-06-26 21:43] VITALS: BP 145/82; PULSE 80; RESP 16; O2SAT 99
[2018-06-26 22:01] LABS: Internal QC Validated? YES +Cl - CLEAR BKGD; Pregnancy, Urine Negative Negative
== END 2018-06-26 21:45 | disposition home or self-care (01) ==
LOC: ED 18:34
PROVIDERS: Emergency Provider Emergency Medicine; Family Provider Internal Medicine; PCP Internal Medicine
DX: R11.2 Nausea with vomiting, unspecified (principal); R10.9 Unspecified abdominal pain; E11.9 Type 2 diabetes mellitus without complications; J45.909 Unspecified asthma, uncomplicated; G47.30 Sleep apnea, unspecified; F31.9 Bipolar disorder, unspecified; F41.9 Anxiety disorder, unspecified; E66.01 Morbid (severe) obesity due to excess calories; Z72.0 Tobacco use; Z79.899 Other long term (current) drug therapy; Z79.84 Long term (current) use of oral hypoglycemic drugs; Z79.1 Long term (current) use of non-steroidal anti-inflammatories (NSAID)
CPT/HCPCS: 76705; 80053; 81001; 81025; 83690; 85025; 87086; 87088; 96361; 96374; 99283; J7030; A4216; J2405

== ENCOUNTER 2018-07-05 15:22 | Emergency (ER) | payer MEDICAID, SELFPAY ==
[2018-07-05 15:23] VITALS: BP 131/70; PULSE 100; RESP 17; TEMP 36.7; O2SAT 97; BMI 60.0
--- NOTE | 2018-07-05 15:49 | CT_ITS ---
STUDY: CT ABDOMEN AND PELVIS WITH CONTRAST REASON FOR EXAM: Female, 37 years old. Right-sided abdominal pain RADIATION DOSAGE (If Supplied By Facility): CTDIvol = ( 13.75 ) mGy, DLP = ( 1221.83 ) mGycm TECHNIQUE: Transaxial images were obtained from the dome of the diaphragm to the symphysis pubis with oral contrast. 100 ml of Isovue 300 contrast was administered. Sagittal and coronal images were reconstructed. Individualized dose optimization techniques were used for this CT. COMPARISON: 09/19/2017 FINDINGS: The visualized lung bases are clear. The visualized portions of the heart and pericardium are within normal limits. There are no calcified gallstones present. The liver is enlarged with diffuse fatty infiltration noted. The spleen is enlarged, but stable. The pancreas is within normal limits. The adrenal glands are within normal limits. There are no renal or ureteral stones. There is no hydronephrosis. There are no focal renal lesions. Normal visualized stomach. There is no bowel obstruction or inflammation. The appendix is not visualized, but there are no findings to suggest acute appendicitis. The aorta is normal in caliber. There is no abdominal or pelvic free air, free fluid, fluid collection or lymphadenopathy. There are no destructive osseous lesions. CT/Abdomen/Pelvis WITH Contrast IMPRESSION: No acute abdominal or pelvic pathology. Electronically Signed: Carlin Gr, at 19:10 EDT Tel , Service support ,
[2018-07-05] MEDS: Morphine 4 MG/ML Syringe IV (16:11)
[2018-07-05] MEDS: 0.9% Normal Saline 1,000 ML 1000 ML IV (16:12)
[2018-07-05] MEDS: Ondansetron 4 MG/2 ML Vial IV (16:12)
[2018-07-05 16:17] LABS: Absolute Lymphocyte Count 2.25 X10^3/ul (0.83-4.51); Absolute Neutrophil Count 3.7 X10^3/uL (2.0-7.7); Basophil# 0.03 X10^3/uL; Basophil% 0.5 % (0-1); Eosinophil# 0.14 X10^3/uL; Eosinophils% 2.2 % (0-5); Hematocrit 44.1 % (37-47); Hemoglobin 14.4 g/dl (12.0-15.0); Lymphocyte # 2.25 X10^3/ul (4.0); Lymphocyte % 35.2 % (19-41); Mean Corp Hgb Conc 32.7 g/gl (32-36); Mean Corpuscular Hgb 29.8 pg (27.0-32.0); Mean Corpuscular Volume 91.1 fL (81-99); Mean Platelet Vol. 9.4 fl (6.2-12.0); Monocyte# 0.28 X10^3/uL; Monocyte% 4.4 % (0-10); Neutrophil # 3.68 X10^3/uL (2.7-7.7); Neutrophil % 57.5 % (47-70); Platelet Count 191 K/mm3 (150-450); RBC Distribution Width CV 14.3 % (11.6-14.6); RBC Distribution Width SD 47.6 fl (35.1-43.9); Red Blood Count 4.84 M/mm3 (4.2-5.4); White Blood Count 6.4 K/mm3 (4.4-11.0)
[2018-07-05 16:18] LABS: POSITIVE COUNT NO; POSITIVE DIFFERENTIAL NO; POSITIVE MORPHOLOGY NO
[2018-07-05 16:42] LABS: ALB/GLOB Ratio 0.9 RATIO (0.9-2.4); AST(SGOT) 70 U/L (15-37); Alanine Aminotransfer ALT/SGPT 75 U/L (13-56); Albumin, Serum 3.5 g/dL (3.2-5.0); Alkaline Phosphatase 107 U/L (45-117); Anion Gap 5 (5-15); BUN 13 mg/dL (7-18); BUN/Creat Ratio 17.3 RATIO (10-20); Calcium,Total 8.6 mg/dL (8.5-10.1); Chloride 109 mmol/L (98-107); Creatinine, Serum 0.75 mg/dL (0.55-1.02); EST Glomerular Filtration Rate 92 mL/min (>60); Est Glom Filt Rate - Afr Amer 112 mL/min (>60); Estimated Creatinine Clearance 89.55 ml/min; Glucose 113 mg/dL (74-106); Lipase 234 U/L (73-393); Potassium 4.2 mmol/L (3.5-5.1); Protein, Total 7.5 g/dL (6.4-8.2); Sodium Level 139 mmol/L (136-145)
[2018-07-05 17:13] LABS: Mucous, Urine 0 SEEN /hpf (<or=2+); White Blood Cells 0 SEEN /hpf (0-5)
[2018-07-05 17:46] LABS: Color, Urine Yellow (Yellow); Glucose, Dipstick Normal (Normal); Ketone-Dipstick Negative (Negative); Leukocyte Esterase-Dipstick 25 /ul (Negative); Nitrite-Dipstick Negative (Negative); Occult Blood-Urine 250 /ul (Negative); Protein-Dipstick 30 mg/dl (Negative); Urine Bilirubin Dipstick Negative (Negative); Urine Clarity Clear (Clear); Urine Urobilinogen Normal (Normal); Urine pH 6.5 (5.0 - 8.0)
[2018-07-05 17:53] LABS: Internal QC Validated? YES +Cl - CLEAR BKGD; Pregnancy, Urine Negative Negative
[2018-07-05 18:17] VITALS: BP 112/70; PULSE 102; RESP 14; O2SAT 97
[2018-07-05 18:22] LABS: Red Blood Cells-Urine 0-5 SEEN /hpf (0-5); Squamous Epithelial Cells - UA 0-5 SEEN /hpf (5-10)
[2018-07-05 18:23] LABS: Bacteria RARE /hpf (None Seen)
--- NOTE | 2018-07-05 19:30 | ED.VISSUMM ---
- ER Visit Summary Date of Service: 07/05/18 Chief Complaint: Abdominal pain History of Present Illness: The patient is a 37 F who presents with abdominal pain. It is been present for 9 days. She complains of a dull right-sided abdominal pain which is worse in the upper abdomen than the lower abdomen but does extend along the whole right side. She reports intermittent nausea and vomiting with roughly 2-3 episodes per day. No diarrhea. She states she did have a fever of 101. She was seen about a week ago for similar symptoms. She denies any exacerbating or relieving factors for her pain. Physical Examination: Heart rate 100 vitals otherwise normal BMI 60 Resting comfortably no distress Heart regular rate and rhythm Lungs are clear Abdomen soft nondistended she does have right-sided abdominal tenderness worse in the upper quadrant than the lower quadrant Test Results: Laboratory studies notable for ALT of 75 and AST of 70. These are similar to prior labs. Lipase normal. CBC normal. Urinalysis shows blood otherwise normal. is negative. CT of the abdomen and pelvis shows no acute pathology. Emergency Department Course and Treatment: Patient treated here with IV fluids morphine and Zofran. I do not have a clear explanation for her symptoms. However she does not appear to have acute surgical process such as appendicitis or cholecystitis. I do not see an indication for hospitalization. She was advised of the need for further outpatient workup including possible studies such as a HIDA scan. She was advised to follow-up with Dr. Clark who she has seen previously. She understands to return for new or worsening symptoms and was discharged home. Treatment Plan: [] Disposition: Discharge Impression: Abdominal pain This note was generated with [employer] dictation software. It may contain incorrect words, spelling, and punctuation that were not noted in review of the chart prior to signing ED Disposition - Plan for ED Patient: Chief Complaint: Abd Pain Referrals: Verona Villarreal MD [Primary Care Provider] -
--- NOTE | 2018-07-05 19:33 | ED.DEP ---
ED Disposition - Plan for ED Patient: Chief Complaint: Abd Pain Instructions: ED Abdominal Pain Unkn Cause Referrals: Verona Villarreal MD [Primary Care Provider] - Rigo Donovan MD [STAFF PHYSICIAN] -
[2018-07-05 19:42] VITALS: BP 110/74; PULSE 79; RESP 22; O2SAT 97
--- NOTE | 2018-07-05 19:42 | ED.RN ---
THIS NURSE REVIEWED D/C INSTRUCTIONS WITH PT. PT VERBALIZED UNDERSTANDING OF INSTRUCTIONS. IV D/C. IV CATHETER INTACT. PT TOLERATED WELL. PT DENIES FURTHER NEEDS OR QUESTIONS AT THIS TIME. PT ASSISTED TO VEHICLE VIA W/C AND FAMILY HELP
== END 2018-07-05 19:44 | disposition home or self-care (01) ==
PROVIDERS: Emergency Provider Emergency Medicine; Family Provider Internal Medicine; PCP Internal Medicine
DX: R10.11 Right upper quadrant pain (principal); R10.31 Right lower quadrant pain; R11.2 Nausea with vomiting, unspecified; E11.9 Type 2 diabetes mellitus without complications; I10 Essential (primary) hypertension; K21.9 Gastro-esophageal reflux disease without esophagitis; F31.9 Bipolar disorder, unspecified; F41.9 Anxiety disorder, unspecified; E66.9 Obesity, unspecified; Z68.44 Body mass index [BMI] 60.0-69.9, adult; Z72.0 Tobacco use; Z79.84 Long term (current) use of oral hypoglycemic drugs; Z79.1 Long term (current) use of non-steroidal anti-inflammatories (NSAID); Z79.899 Other long term (current) drug therapy
CPT/HCPCS: 74177; 80053; 81001; 81025; 83690; 85025; 96374; 96375; 99283; J7030; Q9967; A4216; J2405

== ENCOUNTER 2018-08-20 13:18 | Emergency (ER) | payer MEDICAID, SELFPAY ==
[2018-08-20 13:18] VITALS: PULSE 104; RESP 16; TEMP 36.4; O2SAT 99; BMI 64.0; BMI 64.5
[2018-08-20 13:21] VITALS: BP 159/103
--- NOTE | 2018-08-20 13:34 | ED.VISSUMM ---
- ER Visit Summary Date of Service: 08/20/18 Chief Complaint: Nausea and vomiting. Feels dehydrated. History of Present Illness: The patient is a 37 F history of kcp-mywrenq-rrfzaqoal diabetes, anxiety, depression, bipolar disorder. Patient states that she had nausea and vomiting for 5 days. Feels lightheaded and dehydrated. Denies any severe headache. No chest pain. No abdominal pain. No dysuria. No fever. She has been sick like this before but states this is one of her more severe episodes. Physical Examination: Vital signs are stable. Afebrile. She does not look septic or toxic. No acute distress. HEENT exam dry mixed membranes. Pupils round reactive light. No facial droop. No signs of trauma. Neck nontender no lymphadenopathy. Lungs clear to auscultation bilaterally. Heart regular rhythm rate about 104 no murmur. Chest wall nontender. Abdomen morbidly obese but soft. Nondistended normal bowel sounds no peritoneal signs. Both the right upper and right lower quadrants are unremarkable. No signs of obstruction. Soft. Patient is moving all 4 extremities. They are neurovascularly intact. Back nontender. She does have a rash on her right upper extremity consistent with flea bites. Neurologically she is awake alert with no focal motor deficits. Test Results: [] Emergency Department Course and Treatment: She will be treated with 2 L normal saline. IV Zofran. Clinically this appears to be a viral syndrome. She does appear to be clinically dehydrated. And once she is hydrated and can hold down p.o. fluids most likely we will be discharged home. Treatment Plan: Zofran for nausea. Plenty of fluids and rest. Return if feeling worse. Follow-up your primary care physician if not improving. Disposition: Discharge Impression: Acute nausea and vomiting secondary to viral Acute dehydration History of yia-dnoqvee-ubmqveeou diabetes This note was generated with [employer] dictation software. It may contain incorrect words, spelling, and punctuation that were not noted in review of the chart prior to signing ED Disposition - Plan for ED Patient: Chief Complaint: Nausea/Vomiting Referrals: Verona Villarreal MD [Primary Care Provider] -
--- NOTE | 2018-08-20 13:40 | ED.DCSUM_ITS ---
- ER Visit Summary Date of Service: 08/20/18 Chief Complaint: Nausea and vomiting. Feels dehydrated. History of Present Illness: The patient is a 37 F history of uus-txwruil-yzokwzhbr diabetes, anxiety, depression, bipolar disorder. Patient states that she had nausea and vomiting for 5 days. Feels lightheaded and dehydrated. Denies any severe headache. No chest pain. No abdominal pain. No dysuria. No fever. She has been sick like this before but states this is one of her more severe episodes. Physical Examination: Vital signs are stable. Afebrile. She does not look septic or toxic. No acute distress. HEENT exam dry mixed membranes. Pupils round reactive light. No facial droop. No signs of trauma. Neck nontender no lymphadenopathy. Lungs clear to auscultation bilaterally. Heart regular rhythm rate about 104 no murmur. Chest wall nontender. Abdomen morbidly obese but soft. Nondistended normal bowel sounds no peritoneal signs. Both the right upper and right lower quadrants are unremarkable. No signs of obstruction. Soft. Patient is moving all 4 extremities. They are neurovascularly intact. Back nontender. She does have a rash on her right upper extremity consistent with flea bites. Neurologically she is awake alert with no focal motor deficits. Test Results: [] Emergency Department Course and Treatment: She will be treated with 2 L normal saline. IV Zofran. Clinically this appears to be a viral syndrome. She does appear to be clinically dehydrated. And once she is hydrated and can hold down p.o. fluids most likely we will be discharged home. Treatment Plan: Zofran for nausea. Plenty of fluids and rest. Return if feeling worse. Follow-up your primary care physician if not improving. Disposition: Discharge Impression: Acute nausea and vomiting secondary to viral Acute dehydration History of btb-nuughrg-jsvkzlnfg diabetes This note was generated with [employer] dictation software. It may contain incorrect words, spelling, and punctuation that were not noted in review of the chart prior to signing ED Disposition - Plan for ED Patient: Chief Complaint: Nausea/Vomiting Referrals: Verona Villarreal MD [Primary Care Provider] -
--- NOTE | 2018-08-20 13:42 | DCINST.ED_ITS ---
ED Disposition - Plan for ED Patient: Disposition: Home or Assisted Living Chief Complaint: Nausea/Vomiting Instructions: ED Nausea Vomiting Prescriptions: Ondansetron [Zofran Odt] 4 mg PO Q4H PRN PRN #10 tab.rapdis PRN Reason: Nausea Ondansetron [Zofran Odt] 4 mg PO Q8H PRN PRN #10 tablet PRN Reason: Nausea Referrals: Verona Villarreal MD [Primary Care Provider] - 3-5 Days if not improving Additional Instructions: Zofran as needed for nausea. Plenty of fluids and rest. Advance diet slowly as tolerated. Return if feeling worse or follow-up your primary care physician if not improvi ng.
[2018-08-20] MEDS: proMETHazine 25 MG/ML Syringe 12.5 MG IV (13:48)
[2018-08-20] MEDS: 0.9% Normal Saline 1,000 ML 1000 ML IV ×2 (13:48)
[2018-08-20 13:56] LABS: Absolute Lymphocyte Count 2.05 X10^3/ul (0.83-4.51); Absolute Neutrophil Count 3.7 X10^3/uL (2.0-7.7); Basophil# 0.02 X10^3/uL; Basophil% 0.3 % (0-1); Eosinophil# 0.15 X10^3/uL; Eosinophils% 2.4 % (0-5); Hematocrit 45.3 % (37-47); Lymphocyte # 2.05 X10^3/ul (4.0); Lymphocyte % 32.6 % (19-41); Mean Corp Hgb Conc 33.1 g/gl (32-36); Mean Corpuscular Hgb 29.7 pg (27.0-32.0); Mean Corpuscular Volume 89.7 fL (81-99); Mean Platelet Vol. 9.7 fl (6.2-12.0); Monocyte# 0.38 X10^3/uL; Neutrophil # 3.68 X10^3/uL (2.7-7.7); Neutrophil % 58.5 % (47-70); POSITIVE COUNT NO; POSITIVE DIFFERENTIAL NO; POSITIVE MORPHOLOGY NO; Platelet Count 213 K/mm3 (150-450); RBC Distribution Width CV 13.8 % (11.6-14.6); RBC Distribution Width SD 44.9 fl (35.1-43.9); Red Blood Count 5.05 M/mm3 (4.2-5.4); White Blood Count 6.3 K/mm3 (4.4-11.0)
[2018-08-20 14:09] LABS: Anion Gap 4 (5-15); BUN 11 mg/dL (7-18); BUN/Creat Ratio 13.2 RATIO (10-20); Calcium,Total 9.1 mg/dL (8.5-10.1); Chloride 107 mmol/L (98-107); Creatinine, Serum 0.84 mg/dL (0.55-1.02); EST Glomerular Filtration Rate 82 mL/min (>60); Est Glom Filt Rate - Afr Amer 99 mL/min (>60); Estimated Creatinine Clearance 76.59 ml/min; Glucose 118 mg/dL (74-106); Sodium Level 139 mmol/L (136-145)
[2018-08-20 15:43] VITALS: BP 100/59; BP 101/59; RESP 16
== END 2018-08-20 15:44 | disposition home or self-care (01) ==
PROVIDERS: Emergency Provider Emergency Medicine; Family Provider Internal Medicine; PCP Internal Medicine
DX: E86.0 Dehydration (principal); R11.2 Nausea with vomiting, unspecified; B34.9 Viral infection, unspecified; E11.9 Type 2 diabetes mellitus without complications; J45.909 Unspecified asthma, uncomplicated; G47.30 Sleep apnea, unspecified; F31.9 Bipolar disorder, unspecified; F41.9 Anxiety disorder, unspecified; Z72.0 Tobacco use; Z79.84 Long term (current) use of oral hypoglycemic drugs; Z79.899 Other long term (current) drug therapy; Z87.442 Personal history of urinary calculi
CPT/HCPCS: 80048; 85025; 96361; 96374; 99283; J7030; A4216

== ENCOUNTER 2018-09-12 00:17 | Emergency (ER) | payer MEDICAID, SELFPAY ==
[2018-08-20 13:18] VITALS: BMI 64.5
[2018-09-12 00:18] VITALS: BP 151/80; PULSE 96; RESP 22; TEMP 36.7; O2SAT 98; BMI 65.3
[2018-09-12 00:22] VITALS: BP 151/80; PULSE 90; PULSE 91; RESP 18; RESP 19; TEMP 36.6; O2SAT 97; O2SAT 98
--- NOTE | 2018-09-12 00:34 | RAD_ITS ---
STUDY: X-RAY CHEST REASON FOR EXAM: Female, 38 years old. Chest pain and cough TECHNIQUE: Frontal and lateral views of the chest. COMPARISON: 02/25/2018 FINDINGS: The lungs are clear and expanded. There is no demonstrated pleural abnormality. Normal size heart. Normal mediastinum and misael. Normal visualized pulmonary arteries. Normal visualized aortic arch and descending thoracic aorta. Normal visualized thoracic spine. Normal visualized ribs, clavicles, and shoulders. There is no demonstrated abnormality of the visualized soft tissue structures of the upper abdomen. RAD/Chest PA and Lateral IMPRESSION: Normal x-ray examination of the chest. Electronically Signed: Emre Monroy MD at 1:21 EST Tel , Service support ,
--- NOTE | 2018-09-12 00:46 | EKG12_ITS ---
Test Reason : CP Blood Pressure : / mmHG Vent. Rate : 088 BPM Atrial Rate : 088 BPM P-R Int : 162 ms QRS Dur : 072 ms QT Int : 356 ms P-R-T Axes : 057 025 032 degrees QTc Int : 430 ms Normal sinus rhythm Low voltage QRS Poor R wave progression Borderline ECG Confirmed by DONNA CAST, JORDAN ([id number]), manager editorial PRO [id number] ([id number]) on 09/16/2018 1:13:12 PM Referred By: TORREY Confirmed By:JORDAN THOMPSON MD
[2018-09-12] MEDS: Mag Hydrox/Al Hydrox/Simeth 30 ML UDC PO (00:58)
--- NOTE | 2018-09-12 01:45 | ED.VISSUMM ---
- ER Visit Summary Date of Service: 09/12/18 Chief Complaint: Heartburn History of Present Illness: The patient is a 38 F who presents with complaints of burning in her abdomen and chest. She does has a history of gastroesophageal reflux. She takes Nexium daily. She is also been taking Tums drinking milk. She states over the past week she complains of increased acid and burning in her abdomen and up through her chest and the back of her throat. This is worse with eating. She also reports some shortness of breath and cough. Physical Examination: Respiratory rate 22 vitals otherwise normal Moist mucous membranes Heart regular rate and rhythm Lungs are clear Abdomen soft nontender nondistended Alert Test Results: EKG shows normal sinus rhythm at a rate of 88. Chest x-ray is normal. Emergency Department Course and Treatment: Patient was given a GI cocktail of Maalox and viscous lidocaine with improvement of symptoms. I do suspect her symptoms are related to gastroesophageal reflux disease. This can also contribute to a cough. We will add on Carafate. She understands to return for new or worsening symptoms. She will follow-up with her primary care physician. She was discharged. Treatment Plan: [] Disposition: Discharge Impression: GERD This note was generated with [employer] dictation software. It may contain incorrect words, spelling, and punctuation that were not noted in review of the chart prior to signing ED Disposition - Plan for ED Patient: Chief Complaint: Chest Pain Referrals: Verona Villarreal MD [Primary Care Provider] -
--- NOTE | 2018-09-12 01:46 | ED.DEP ---
ED Disposition - Plan for ED Patient: Chief Complaint: Chest Pain Instructions: ED GERD Referrals: Verona Villarreal MD [Primary Care Provider] -
[2018-09-12 01:55] VITALS: BP 117/67; PULSE 89; RESP 20; O2SAT 98
== END 2018-09-12 01:56 | disposition home or self-care (01) ==
LOC: ED 01:04
PROVIDERS: Emergency Provider Emergency Medicine; Family Provider Internal Medicine; PCP Internal Medicine
DX: K21.9 Gastro-esophageal reflux disease without esophagitis (principal); J45.909 Unspecified asthma, uncomplicated; E11.9 Type 2 diabetes mellitus without complications; F31.9 Bipolar disorder, unspecified; G47.33 Obstructive sleep apnea (adult) (pediatric); Z79.84 Long term (current) use of oral hypoglycemic drugs; Z79.899 Other long term (current) drug therapy
CPT/HCPCS: 71046; 93005; 99283

== ENCOUNTER 2019-02-03 15:42 | Emergency (ER) | payer MEDICAID, SELFPAY ==
[2019-02-03 15:43] VITALS: BP 144/82; PULSE 110; RESP 23; TEMP 37.4; O2SAT 95; BMI 66.5
--- NOTE | 2019-02-03 15:51 | EKG12_ITS ---
Test Reason : CP Blood Pressure : / mmHG Vent. Rate : 106 BPM Atrial Rate : 106 BPM P-R Int : 152 ms QRS Dur : 072 ms QT Int : 330 ms P-R-T Axes : 049 032 030 degrees QTc Int : 438 ms Sinus tachycardia Low voltage QRS Borderline ECG Confirmed by DONNA CAST, JORDAN ([id number]), editor city BRIANNE YANG ([id number]) on 02/06/2019 1:18:27 PM Referred By: CHIQUIS Confirmed By:JORDAN THOMPSON MD
[2019-02-03 15:52] VITALS: BP 132/78; PULSE 101; PULSE 102; RESP 14; RESP 21; TEMP 37.4; O2SAT 96
--- NOTE | 2019-02-03 15:52 | RAD_ITS ---
STUDY: X-RAY CHEST REASON FOR EXAM: Female, 38 years old. Chest pain and shortness of breath TECHNIQUE: PA and lateral COMPARISON: September 12, 2018 FINDINGS: The lungs are clear and expanded. There is no demonstrated pleural abnormality. Normal size heart. Normal mediastinum and misael. Normal visualized pulmonary arteries. Normal visualized aortic arch and descending thoracic aorta. Normal visualized thoracic spine. Normal visualized ribs, clavicles, and shoulders. There is no demonstrated abnormality of the visualized soft tissue structures of the upper abdomen. No significant change since prior exam RAD/Chest PA and Lateral IMPRESSION: Normal x-ray examination of the chest. Electronically Signed: Figueroa Lamb MD at 17:02 EDT , Service support ,
--- NOTE | 2019-02-03 15:57 | ED.DCSUM_ITS ---
History of Present Illness Chief Complaint: Chest Pain Informant: Patient Onset: Days - Onset 3 days ago Context: Sudden Onset Timing: Intermittent Quality: Cough, chest pain with coughing, wheezing Location: Respiratory Current Severity: Mild Maximum Severity: Moderate Worsened by: Exertion and coughing Relieved by: Nothing Associated Symptoms: Chills, sweats, shortness of breath, cough Narrative: Patient is a 38-year-old woman with a BMI of 66.5 who presents with chest pain that is worse with coughing. She does report shortness of breath, the cough is essentially nonproductive. She complains of chills and sweats. She denies documented fever. She denies history of PE or DVT. She has no complaint of leg pain, swelling discoloration. She does have a rash. She denies headache, visual, ocular auditory symptoms. Denies neck pain or neck stiffness. She has no known history of coronary disease. Prior similar symptoms: No Recent Illness/Hospitalization: No - Past Medical History (1) Umbilical hernia Status: Acute (2) Bipolar 1 disorder Status: Chronic (3) Diabetes Status: Chronic (4) Obesity Status: Chronic (5) Smoker Status: Chronic Past Medical History - Allergies and Home Meds Allergies/Adverse Reactions: Allergies melatonin Allergy (Verified 02/03/19 15:43) Hives Penicillins Allergy (Verified 02/03/19 15:43) Hives tramadol Allergy (Verified 02/03/19 15:43) Hives Primary Care Physician: Verona Villarreal MD [Primary Care Provider] - 10-14 Days if not better Prior records reviewed: Yes Lives: Spouse/ Significant Other Smoking Status: Former smoker Alcohol: None Drugs: None - Family History Maternal Family History: Reports: No pertinent history Review of Systems General: Reports: Chills, Malaise, Sweats. Denies: Fever, Weight loss Eyes: Denies: Visual changes - bilaterally, Blurred Vision - bilaterally, Diplopia ENT: Reports: Sore throat. Denies: Bilateral ear pain, Rhinorrhea Cardiovascular: Reports: Chest pain. Denies: Palpitations, Heart racing Respiratory: Reports: Dyspnea, Cough, Sputum, Dyspnea on exertion. Denies: Orthopnea, Paroxysmal nocturnal dyspnea Gastrointestinal: Denies: Abdominal pain, Nausea, Vomiting, Diarrhea, Melena, Hematochezia Genitourinary: Denies: Dysuria, Hematuria, Frequency Musculoskeletal: Denies: Myalgias, Arthralgias, Neck pain, Back pain, Swelling, Extremity Pain Skin: Reports: Rash Neurological: Denies: Headache, Weakness Psych: Reports: Depression. Denies: Suicidal thoughts Hematologic: Denies: Easy bruising Physical Exam Vital Signs/Narrative: Vital Signs Temp Pulse Resp BP Pulse Ox 02/03/19 15:43 99.3 F H 110 H 23 H 144/82 H 95 Inital Vital Signs reviewed: Yes General: Well nourished, Well developed, No Acute Distress. Negative for: Obese Head: Normocephalic, Atraumatic Eyes: Perrl, EOMI. Negative for: Pale conjunctiva, Scleral icterus, - ENT: Moist mucous membranes, No rhinorrhea, TM's clear Neck: Supple, Nontender. Negative for: No lymphadenopathy, No JVD Cardiovascular: Regular rhythm, No murmurs, Normal S1, Normal S2, Tachycardia Respiratory: Chest nontender, Wheezing, Decreased Air Movement. Negative for: Rales, Rhonchi Abdomen: Soft, Nontender, Nondistended, Normal bowel sounds Back: Nontender, Normal Inspection Extremities: Nontender, No edema. Negative for: Calf Tenderness Skin: Normal color, Rash - She has a rash secondary to fleas with allergic response. Neurological: Alert, Oriented x3, Cranial nerves II-XII grossly intact, Normal Strength, Normal Sensation Psychological: Normal affect, Normal Mood Diagnostic/Tx/Re-eval Chest X-Ray - ED: 2 View, Read by ED Physician, Normal, Heart, Lungs, Mediastinum, Bony Structures, No Acute Disease, - - Chest x-ray is unchanged from September 12, 2018. 02/03/19 15:52 Chest PA and Lateral [RAD] Stat Laboratory Results 02/03/19 02/03/19 02/03/19 16:14 16:14 16:14 WBC 5.8 RBC 4.80 Hgb 14.1 Hct 42.1 MCV 87.7 MCH 29.4 MCHC 33.5 RDW 14.6 RDW Differential 46.4 H Plt Count 169 MPV 9.4 Immature Gran % (Auto) 0.200 Neut % (Auto) 60.0 Lymph % (Auto) 31.6 Lander % (Auto) 5.5 Eos % (Auto) 2.4 Baso % (Auto) 0.3 Absolute Neuts (auto) 3.5 Absolute Lymphs (auto) 1.83 Total Counted Not Reportable Sodium 139 Potassium 3.6 Chloride 107 Carbon Dioxide 25.0 Anion Gap 7 BUN 11 Creatinine 0.72 Estim Creat Clear Calc 88.50 Est GFR (MDRD) Af Amer 116 Est GFR (MDRD) Non-Af 96 BUN/Creatinine Ratio 15.2 Glucose 140 H Lactic Acid 1.5 Calcium 8.9 - EKG Initial EKG Interpretation: Sinus Tachycardia - Circular rate is 106. NC interval, cures duration, QTc and axis are normal. Patient has low voltage most likely secondary to body habitus. - Medical Decision Making Patient presents with respiratory infectious symptoms. To evaluate patient's symptoms chest x-ray, basic mental panel and CBC was obtained. Basic mental panel was obtained to assess renal function and blood sugar since she has hist ory of diabetes. Chest x-ray to evaluate for pneumonia. Per nurse protocol EKG was obtained. She was treated with DuoNeb and albuterol. Will reassess once tests are available for review. The patient was reexamined at 1710 she still complained of chest discomfort. She had no wheezing on expiration. Plan is to discharge and treat for acute viral upper restaurant infection. ED Disposition - Plan for ED Patient: Disposition: Home or Assisted Living Diagnosis: Acute viral bronchitis, Chest pain, Hyperactive airway disease Instructions: ED Upper Resp Infec No Abx Tx Referrals: Verona Villarreal MD [Primary Care Provider] - 10-14 Days if not better
[2019-02-03 16:02] VITALS: PULSE 105; RESP 20; O2SAT 96
[2019-02-03] MEDS: Ipratropium/Albuterol Sulfate 3 ML AMPUL.NEB INHALATION (16:02)
[2019-02-03] MEDS: Albuterol 2.5 MG/3 ML VIAL.NEB. INHALATION (16:02)
[2019-02-03 16:27] LABS: Absolute Lymphocyte Count 1.83 X10^3/ul (0.83-4.51); Absolute Neutrophil Count 3.5 X10^3/uL (2.0-7.7); Basophil# 0.02 X10^3/uL; Basophil% 0.3 % (0-1); Eosinophil# 0.14 X10^3/uL; Eosinophils% 2.4 % (0-5); Hematocrit 42.1 % (37-47); Hemoglobin 14.1 g/dl (12.0-15.0); Lymphocyte # 1.83 X10^3/ul (4.0); Lymphocyte % 31.6 % (19-41); Mean Corp Hgb Conc 33.5 g/gl (32-36); Mean Corpuscular Hgb 29.4 pg (27.0-32.0); Mean Corpuscular Volume 87.7 fL (81-99); Mean Platelet Vol. 9.4 fl (6.2-12.0); Monocyte# 0.32 X10^3/uL; Monocyte% 5.5 % (0-10); Neutrophil # 3.48 X10^3/uL (2.7-7.7); POSITIVE COUNT NO; POSITIVE DIFFERENTIAL NO; POSITIVE MORPHOLOGY NO; Platelet Count 169 K/mm3 (150-450); RBC Distribution Width CV 14.6 % (11.6-14.6); RBC Distribution Width SD 46.4 fl (35.1-43.9); White Blood Count 5.8 K/mm3 (4.4-11.0)
[2019-02-03 16:35] LABS: Anion Gap 7 (5-15); BUN 11 mg/dL (7-18); BUN/Creat Ratio 15.2 RATIO (10-20); Calcium,Total 8.9 mg/dL (8.5-10.1); Chloride 107 mmol/L (98-107); Creatinine, Serum 0.72 mg/dL (0.55-1.02); EST Glomerular Filtration Rate 96 mL/min (>60); Est Glom Filt Rate - Afr Amer 116 mL/min (>60); Glucose 140 mg/dL (74-106); Potassium 3.6 mmol/L (3.5-5.1); Sodium Level 139 mmol/L (136-145)
[2019-02-03 16:41] LABS: Lactic Acid 1.5 mmol/L (0.4-2.0)
[2019-02-03 16:51] VITALS: BP 110/76; PULSE 103; RESP 10; TEMP 37.6; O2SAT 96
[2019-02-03 17:36] VITALS: BP 96/57; PULSE 104; RESP 14; RESP 16; O2SAT 95
== END 2019-02-03 17:38 | disposition home or self-care (01) ==
PROVIDERS: Emergency Provider Emergency Medicine; Family Provider Internal Medicine; PCP Internal Medicine
DX: J20.8 Acute bronchitis due to other specified organisms (principal); R00.0 Tachycardia, unspecified; E11.9 Type 2 diabetes mellitus without complications; F31.9 Bipolar disorder, unspecified; E66.9 Obesity, unspecified; F17.200 Nicotine dependence, unspecified, uncomplicated; Z79.84 Long term (current) use of oral hypoglycemic drugs; Z79.1 Long term (current) use of non-steroidal anti-inflammatories (NSAID); Z79.899 Other long term (current) drug therapy; Z88.0 Allergy status to penicillin; Z88.8 Allergy status to other drugs, medicaments and biological substances
CPT/HCPCS: 71046; 80048; 83605; 85025; 93005; 94640; 99284; A4216

== ENCOUNTER 2019-07-01 11:28 | Observation (INO) | payer MEDICAID, SELFPAY ==
[2019-07-01] VITALS (7 sets, daily range): BP systolic 112–144; BP diastolic 58–77; PULSE 82–97; RESP 14–25; TEMP 36.6–36.9; O2SAT 93–99; BMI 65.2; BMI 64.0
--- NOTE | 2019-07-01 11:52 | CT_ITS ---
STUDY: CT ABDOMEN AND PELVIS WITH CONTRAST REASON FOR EXAM: Female, 38 years old. Right-sided abdominal pain with diarrhea and vomiting. History of prior umbilical hernia repair. RADIATION DOSAGE (If Supplied By Facility): CTDIvol = ( 33.80 ) mGy, DLP = ( 2000.76 ) mGycm TECHNIQUE: Transaxial images were obtained from the dome of the diaphragm to the symphysis pubis without oral contrast. IV Isovue 300 100mL was administered. Sagittal and coronal images were reconstructed. Individualized dose optimization techniques were used for this CT. COMPARISON: Comparison is made with prior examination July 05, 2018. FINDINGS: The visualized lung bases are unremarkable. The visualized portions of the heart are within normal limits. There is decreased attenuation of the liver consistent with steatosis. Normal gallbladder and extrahepatic biliary system. There is mild splenomegaly. Normal pancreas. Normal bilateral adrenal glands. Normal right kidney. Normal left kidney. Normal visualized stomach. Normal small intestine. Normal colon. The appendix is visualized and appears normal. Normal abdominal aorta. Normal inferior vena cava. Normal retroperitoneum. Normal urinary bladder. There is a small umbilical hernia containing fat. Normal osseous structures. CT/Abdomen/Pelvis W IV Cont ONLY IMPRESSION: Fatty infiltration of the liver. Mild splenomegaly. Electronically Signed: Bernardo Barbosa, at 13:39 EDT , Service support ,
--- NOTE | 2019-07-01 11:54 | ED.VISSUMM ---
- ER Visit Summary Date of Service: 07/01/19 Chief Complaint: Abdominal pain History of Present Illness: The patient is a 38 F with abdominal pain. This came on gradually over the past 4 days. It is over the right side of her abdomen. It was worse today, so she came to the ER. Associated with nausea, vomiting, diarrhea. She tried a liquid diet, but it is not helping. No history of this in the past. She does have a remote history of umbilical hernia repair with mesh. Denies any urinary symptoms or urinary history. 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 Physical Examination: Afebrile and vital signs unremarkable. Heart regular. Lungs clear. Right lower quadrant is tender greater than the right upper quadrant. No guarding or rebound. No distention. No jaundice or pallor. Test Results: Labs, urinalysis, CT pending. Emergency Department Course and Treatment: Patient treated with IV fluids, morphine, Zofran while awaiting imaging, urinalysis, and labs. CBC normal. Glucose 323, liver functions stable, elevated 2-3 times normal. Lipase 542. test negative. Urinalysis unremarkable. CT abdomen showed fatty liver and mild splenomegaly. On reevaluation, patient is having continued pain. She required additional pain meds. She did not feel she would do well at home with the amount of pain she is having. I contacted the hospitalist for observation. Treatment Plan: As above Disposition: Observation Impression: 1. Abdominal pain 2. Elevated liver enzymes This note was generated with [employer] dictation software. It may contain incorrect words, spelling, and punctuation that were not noted in review of the chart prior to signing ED Disposition - Plan for ED Patient: Referrals: Verona Villarreal MD [Primary Care Provider] -
[2019-07-01 12:24] LABS: Absolute Lymphocyte Count 1.63 X10^3/uL (0.83-4.51); Basophil# 0.03 X10^3/uL; Basophil% 0.5 % (0-1); Eosinophil# 0.14 X10^3/uL; Eosinophils% 2.3 % (0-5); Hematocrit 43.8 % (37-47); Hemoglobin 13.4 g/dL (12.0-15.0); Lymphocyte # 1.63 X10^3/ul (4.0); Lymphocyte % 26.9 % (19-41); Mean Corp Hgb Conc 30.6 g/dL (32-36); Mean Corpuscular Hgb 27.1 pg (27.0-32.0); Mean Corpuscular Volume 88.7 fL (81-99); Mean Platelet Vol. 10.4 fl (6.2-12.0); Monocyte# 0.28 X10^3/uL; Monocyte% 4.6 % (0-10); NRBC Flagged by Analyzer 0 % (0-5); Neutrophil # 3.98 X10^3/uL (2.7-7.7); Neutrophil % 65.5 % (47-70); Platelet Count 176 K/mm3 (150-450); RBC Distribution Width CV 15.7 % (11.6-14.6); Red Blood Count 4.94 M/mm3 (4.2-5.4); White Blood Count 6.1 K/mm3 (4.4-11.0)
[2019-07-01 12:34] LABS: Internal QC Validated? YES +Cl - CLEAR BKGD; Pregnancy, Serum, hCG Quali. NEGATIVE Negative
[2019-07-01 12:38] LABS: ALB/GLOB Ratio 0.7 RATIO (0.9-2.4); AST(SGOT) 69 U/L (15-37); Alanine Aminotransfer ALT/SGPT 101 U/L (13-56); Albumin, Serum 3.2 g/dL (3.2-5.0); Alkaline Phosphatase 144 U/L (45-117); Anion Gap 6 (5-15); BUN 10 mg/dL (7-18); Calcium,Total 8.7 mg/dL (8.5-10.1); Chloride 105 mmol/L (98-107); Creatinine, Serum 0.83 mg/dL (0.55-1.02); EST Glomerular Filtration Rate 82 mL/min (>60); Est Glom Filt Rate - Afr Amer 99 mL/min (>60); Estimated Creatinine Clearance 80.14 ml/min; Globulin 4.5 g/dL (2.2-4.2); Glucose 323 mg/dL (74-106); Lipase 542 U/L (73-393); Potassium 3.8 mmol/L (3.5-5.1); Protein, Total 7.7 g/dL (6.4-8.2); Sodium Level 136 mmol/L (136-145)
[2019-07-01] MEDS: 0.9% Normal Saline 1,000 ML 1000 ML IV (12:43)
[2019-07-01] MEDS: Ondansetron 4 MG/2 ML Vial IV (12:44)
[2019-07-01] MEDS: Morphine 4 MG/ML Syringe IV ×2 (12:44→15:20)
[2019-07-01 13:37] LABS: Mucous, Urine 0 SEEN /hpf (<or=2+)
[2019-07-01 13:38] LABS: Color, Urine Yellow (Yellow); Glucose, Dipstick 1000 mg/dl (Normal); Ketone-Dipstick Negative (Negative); Leukocyte Esterase-Dipstick Negative /ul (Negative); Nitrite-Dipstick Negative (Negative); Occult Blood-Urine Negative /ul (Negative); Protein-Dipstick Negative (Negative); Urine Bilirubin Dipstick Negative (Negative); Urine Clarity Sl. Cloudy (Clear); Urine Urobilinogen Normal (Normal)
[2019-07-01 13:57] LABS: Bacteria RARE /hpf (None Seen); Red Blood Cells-Urine 0-5 SEEN /hpf (0-5); Squamous Epithelial Cells - UA 0-5 SEEN /hpf (5-10); White Blood Cells 0-5 SEEN /hpf (0-5)
--- NOTE | 2019-07-01 14:53 | HP.PCM_ITS ---
Problem List (1) Abdominal pain Status: Acute Qualifiers: Abdominal location: right upper quadrant Qualified Code(s): R10.11 - Right upper quadrant pain (2) Super-super obese Status: Chronic (3) Bipolar 1 disorder Status: Chronic (4) Diabetes Status: Chronic Qualifiers: Diabetes mellitus type: type 2 Diabetes mellitus [facility] insulin use: without rn long term care use Diabetes mellitus complication status: with other specified complication Qualified Code(s): E11.69 - Type 2 diabetes mellitus with other specified complication (5) Smoker Status: Chronic (6) Asthma Status: Acute Qualifiers: Asthma severity: mild Asthma persistence: unspecified Asthma complication type: unspecified Qualified Code(s): J45.909 - Unspecified asthma, uncomplicated History of Present Illness Date of Admission: 07/01/19 Chief Complaint: Intractable abdominal pain - 4 days. Vomiting and diarrhea - 1 day The patient is a 38 year old F with past medical history of asthma, type II DM, bipolar disorder, super morbid obesity who comes in with complaints of right upper quadrant pain ongoing for about 4 days. She describes the pain as constant, stabbing, located on the right side and lately in the right upper quadrant. It is aggravated by movement or sitting still. Has no relieving factors. It is associated with nausea and vomiting and diarrhea which is ongoing for 1 day. Has vomited about 3 times in the past 24 hours. She has had loose nonbloody bowel movements about 4 times in the last 24 hours. She denies eating any new meals or travel outside the country or any sick contacts. She denied any new medications. Vitals in the ED show temperature of 97.9F, heart rate 97, blood pressure 144/77, respiratory rate 18, SPO2 99% on room air. His WBC is 6.1, Hb 13.4, Plt 176. CMP is unremarkable except for AST 69, ALT 101, ALP 144. Lipase 542. CT scan of abd/pelvis showed fatty infiltration of the liver, mild splenomegaly. Past Medical History Past Medical History (Chronic Problems): Chronic Problems Super-super obese (Chronic) Bipolar 1 disorder (Chronic) Diabetes (Chronic) Smoker (Chronic) Obesity (Chronic) Allergies melatonin Allergy (Verified 07/01/19 11:31) Hives Penicillins Allergy (Verified 07/01/19 11:31) Hives tramadol Allergy (Verified 07/01/19 11:31) Hives Home Medications: Ambulatory Orders Medication Instructions Recorded Loratadine [Claritin] 10 mg PO DAILY 07/07/13 Lorazepam [Ativan] 1 mg PO BID PRN PRN 12/11/13 Albuterol Inhaler [Ventolin Hfa] 1 puff INHALATION Q4H PRN PRN 03/26/14 Fluticasone/Salmeterol [Advair 1 puff INHALATION BID 03/26/14 250/50 Mcg Diskus] traZODone [Desyrel] 200 mg PO QHS 01/12/15 Montelukast [Singulair] 10 mg PO QHS 08/10/16 Sumatriptan Succinate [Imitrex] 25 mg PO .X1 PRN PRN 08/10/16 Esomeprazole Mag Trihydrate 20 mg PO DAILY 03/07/18 [Nexium] Aripiprazole [Abilify] 2 mg PO QHS 07/01/19 Citalopram [Celexa] 40 mg PO DAILY 07/01/19 Lamotrigine [Lamictal] 200 mg PO BID 07/01/19 Metformin HCl 1,000 mg PO BID 07/01/19 Naproxen [Naprosyn] 500 mg PO BID PRN PRN 07/01/19 Spironolactone 25 mg PO DAILY 07/01/19 Topiramate 100 mg PO BID 07/01/19 Surgical History: - - umbilical hernia repair Psychiatric History: Anxiety, Bipolar, Depression, Prior suicide attempt 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 Denies: Chills, Fever, Malaise, Weight Change, Fatigue Eyes: Denies: Blurred vision, Pain, Redness, Vision Change HEENT: Denies: Difficulty Hearing, Difficulty Swallowing, Head Aches, Hearing Changes, Sinus Congestion, Sinus Drainage Cardiovascular: Denies: Chest Pain, Claudication, Light Headedness, Orthopnea, Palpitations, Paroxysmal Noc. Dyspnea Respiratory: Denies: Cough, Hemoptysis, Shortness of Breath, Shortness of breath at rest, Shortness of breath upon exertion, Sputum production Gastrointestinal: Reports: Abdominal Pain, Nausea, Vomiting Genitourinary: Denies: Dysuria, Frequency Musculoskeletal: Denies: Joint Pain, Joint stiffness, Joint swelling, Joint Tenderness Skin: Denies: Pruritis, Rash, Wounds Neurological: Denies: Difficulty swallowing, Focal weakness, Numbness, Tingling Psychiatric: Denies: Anxiety, Depression, Homicidal Ideations, Suicidal Ideations Hematologic/ Lymphatic: Denies: Easy Bruising, Easy Bleeding VTE Information - Inpt Only VTE Present on Admission: No VTE Pharm Prophylaxis ordered?: Yes Patient Problems: Active and Suspected Problems Abdominal pain (Acute) Asthma (Acute) - Physical Exam General: Alert, Oriented x3, Cooperative, No apparent distress, - - super morbidly obese HEENT: Atraumatic, PERRLA, EOMI, Normocephalic Oral: Dry Mucosa Neck: Supple Lungs: Clear to auscultation, Normal air movement Cardiovascular: Regular rate, Regular Rhythm, Normal S1, Normal S2, No murmurs Abdomen: Bowel Sounds Present, Soft, Non Tender, Non-Distended, No Hepato- splenomegaly Extremities: No edema Skin: No rashes, No breakdown Musculoskeletal: No Tenderness to Palpation of Joints or Extremities Lymphatic: No Cervical, Supraclavicular, or Inguinal Adenopathy Neurological: Cranial nerves II-XII grossly intact, Neuro grossly intact Psych/Mental Status: Normal Affect, Appropriate Vital Signs Temp Pulse Resp BP Pulse Ox 97.9 F 86 15 121/58 H 97 07/01/19 11:29 07/01/19 14:04 07/01/19 14:04 07/01/19 14:04 07/01/19 14:04 Oxygen Delivery Method Room Air Weight: 172.365 kg Body Mass Index (BMI) 65.2 Finger Stick Blood Glucose 135 Intake and Output for Last 24 Hours 06/29/19 06/30/19 07/01/19 23:59 23:59 23:59 Intake Total 1000 / 1000 Balance 1000 / 1000 Laboratory Tests Past 24 Hrs 07/01/19 07/01/19 07/01/19 12:05 12:05 12:05 WBC 6.1 RBC 4.94 Hgb 13.4 Hct 43.8 MCV 88.7 MCH 27.1 MCHC 30.6 L RDW Std Deviation 51.0 H RDW Coeff of [place] 15.7 H Plt Count 176 MPV 10.4 Immature Gran % (Auto) 0.200 Neut % (Auto) 65.5 Lymph % (Auto) 26.9 [place] % (Auto) 4.6 Eos % (Auto) 2.3 Baso % (Auto) 0.5 Absolute Neuts (auto) 4.0 Absolute Lymphs (auto) 1.63 Nucleated RBC % 0 Sodium 136 Potassium 3.8 Chloride 105 Carbon Dioxide 25.0 Anion Gap 6 BUN 10 Creatinine 0.83 Estim Creat Clear Calc 80.14 Est GFR (MDRD) Af Amer 99 Est GFR (MDRD) Non-Af 82 BUN/Creatinine Ratio 12.0 Glucose 323 H Calcium 8.7 Total Bilirubin 0.40 AST 69 H ALT 101 H Alkaline Phosphatase 144 H Total Protein 7.7 Albumin 3.2 Globulin 4.5 H Albumin/Globulin Ratio 0.7 L Lipase 542 H Serum , Qual NEGATIVE Urine Color Urine Clarity Urine pH Ur Specific [place] Urine Protein Urine Glucose (UA) Urine Ketones Urine Occult Blood Urine Nitrite Urine Bilirubin Urine Urobilinogen Ur Leukocyte Esterase Urine RBC Urine WBC Ur Squamous Epith Cells Urine Bacteria Urine Mucus 07/01/19 13:31 WBC RBC Hgb Hct MCV MCH MCHC RDW Std Deviation RDW Coeff of [place] Plt Count MPV Immature Gran % (Auto) Neut % (Auto) Lymph % (Auto) [place] % (Auto) Eos % (Auto) Baso % (Auto) Absolute Neuts (auto) Absolute Lymphs (auto) Nucleated RBC % Sodium Potassium Chloride Carbon Dioxide Anion Gap BUN Creatinine Estim Creat Clear Calc Est GFR (MDRD) Af Amer Est GFR (MDRD) Non-Af BUN/Creatinine Ratio Glucose Calcium Total Bilirubin AST ALT Alkaline Phosphatase Total Protein Albumin Globulin Albumin/Globulin Ratio Lipase Serum , Qual Urine Color Yellow Urine Clarity Sl. Cloudy Urine pH 7.0 Ur Specific [place] 1.010 Urine Protein Negative Urine Glucose (UA) 1000 H Urine Ketones Negative Urine Occult Blood Negative Urine Nitrite Negative Urine Bilirubin Negative Urine Urobilinogen Normal Ur Leukocyte Esterase Negative Urine RBC 0-5 SEEN Urine WBC 0-5 SEEN Ur Squamous Epith Cells 0-5 SEEN Urine Bacteria RARE Urine Mucus 0 SEEN Assessment/Plan All Active Problems Abdominal pain (Acute) Asthma (Acute) Chest pain (Acute) Abnormal cardiovascular stress test (Acute) Umbilical hernia (Acute) 38 year old F with past medical history of asthma, type II DM, bipolar disorder, super morbid obesity who comes in with complaints of intractable right upper quadrant pain ongoing for about 4 days associated with vomiting and diarrhea ongoing for 1 day. 1. Acute intractable right upper quadrant pain, likely secondary to muscle skeletal disorder/GARCIA CT scan of the abdomen and pelvis confirms fatty liver Patient given morphine in the ED without relief Plan: Admit to MedSurg, observation status, continue on IV morphine as needed, Lidoderm patches 2. Acute gastroenteritis, likely viral, stable vitals, clinically looks stable We will get stool for enteric panel panel, strict stool charting 3. Elevated liver function tests likely secondary to GARCIA Patient counseled on weight loss and will need to follow-up on this in the outpatient 4. Super morbid obesity, BMI 65.2 kg, lifestyle modification advised patient is a candidate for bariatric surgery Advised patient to look into options for bariatric surgery 5. Type II DM, on metformin, will hold metformin Continue with blood glucose checks with insulin sliding scale 6. Bipolar disorder/anxiety/depression, continue on home medications 7. Asthma, no signs of acute exacerbation, continue PRN breathing treatments 8. Nicotine dependence, on replacement 9. DVT PPx- Lovenox 40mg BID Code Visit OBSV E&M: 44702 Initial observation care L2
--- NOTE | 2019-07-01 15:16 | NURSING ---
313 PAINTSIL INTRACTABLE ABD PAIN
[2019-07-01] MEDS: Morphine 2 MG/ML Syringe IV ×2 (16:34→21:11)
[2019-07-01 16:40] LABS: Bedside Glucose 166 mg/dL (70-110)
[2019-07-01] MEDS: Insulin Lispro 100 UNIT/ML INSULN.PEN SC (16:41)
[2019-07-01] MEDS: Albuterol 2.5 MG/3 ML VIAL.NEB. INHALATION (18:53)
[2019-07-01] MEDS: Budesonide Respules 0.5 MG/2 ML AMPUL.NEB. INHALATION (18:53)
[2019-07-01] MEDS: Montelukast 10 MG Tablet PO (21:05)
[2019-07-01] MEDS: lamoTRIgine 100 MG Tablet 200 MG PO (21:06)
[2019-07-01] MEDS: traZODone 100 MG Tablet 200 MG PO (21:06)
[2019-07-01] MEDS: Topiramate 100 MG Tablet PO (21:06)
[2019-07-01] MEDS: ARIPiprazole 2 MG Tablet PO (21:07)
[2019-07-01] MEDS: Enoxaparin 40 MG/0.4 ML Syringe SC (21:07)
[2019-07-01] MEDS: 0.9% Saline Lock 10 ML Syringe IV (21:12)
[2019-07-01 21:21] LABS: Bedside Glucose 112 mg/dL (70-110)
[2019-07-02 01:24] VITALS: PULSE 93; RESP 19; O2SAT 95
[2019-07-02 03:17] VITALS: BP 157/87; PULSE 104; RESP 16; TEMP 37.4; O2SAT 95
[2019-07-02 03:20] VITALS: PULSE 97; RESP 17; O2SAT 95
[2019-07-02] MEDS: Morphine 2 MG/ML Syringe IV (03:24)
[2019-07-02 06:45] VITALS: PULSE 89; RESP 19
[2019-07-02] MEDS: Albuterol 2.5 MG/3 ML VIAL.NEB. INHALATION (06:45)
[2019-07-02] MEDS: Budesonide Respules 0.5 MG/2 ML AMPUL.NEB. INHALATION (06:45)
[2019-07-02] MEDS: Insulin Lispro 100 UNIT/ML INSULN.PEN SC ×2 (07:04→11:27)
[2019-07-02] MEDS: Rizatriptan Benzoate 5 MG Tablet PO (07:14)
[2019-07-02 07:46] LABS: Bedside Glucose 180 mg/dL (70-110)
[2019-07-02 08:41] LABS: ALB/GLOB Ratio 0.7 RATIO (0.9-2.4); AST(SGOT) 165 U/L (15-37); Alanine Aminotransfer ALT/SGPT 138 U/L (13-56); Alkaline Phosphatase 122 U/L (45-117); Anion Gap 8 (5-15); BUN 10 mg/dL (7-18); BUN/Creat Ratio 13.6 RATIO (10-20); Calcium,Total 8.5 mg/dL (8.5-10.1); Chloride 106 mmol/L (98-107); Creatinine, Serum 0.73 mg/dL (0.55-1.02); EST Glomerular Filtration Rate 94 mL/min (>60); Est Glom Filt Rate - Afr Amer 114 mL/min (>60); Estimated Creatinine Clearance 91.11 ml/min; Globulin 4.1 g/dL (2.2-4.2); Glucose 204 mg/dL (74-106); Lipase 389 U/L (73-393); Potassium 3.8 mmol/L (3.5-5.1); Protein, Total 7.1 g/dL (6.4-8.2); Sodium Level 138 mmol/L (136-145)
[2019-07-02 09:35] VITALS: BP 137/79; PULSE 97; RESP 18; TEMP 37.2; O2SAT 97
--- NOTE | 2019-07-02 09:47 | PN_ITS ---
Patient Problems: Active and Suspected Problems Abdominal pain (Acute) Asthma (Acute) Subjective: Feeling better. States that she get similar abdominal pain about every 6 months. Vitals/I&O's: Vital Signs Temp Pulse Resp BP Pulse Ox 37.2 C 97 18 137/79 H 97 07/02/19 09:35 07/02/19 09:35 07/02/19 09:35 07/02/19 09:35 07/02/19 09:35 Oxygen Delivery Method Room Air Weight: 169.1 kg Body Mass Index (BMI) 64.0 Finger Stick Blood Glucose 135 Intake and Output for Last 24 Hours 06/30/19 07/01/19 07/02/19 23:59 23:59 23:59 Intake Total 1100 / 1100 600 / 600 Output Total 300 / 300 350 / 350 Balance 800 / 800 250 / 250 General: Alert, No apparent distress HEENT: Atraumatic, Normocephalic Oral: Moist Mucosa, No Gingival or Mucosal Lesions/ Ulcerations Neck: No Nodes, Thyroid Normal Size and Texture Lungs: Clear to auscultation, Normal air movement, No rhonchi, No wheeze Cardiovascular: Regular rate, Regular Rhythm, Normal S1, Normal S2, No murmurs Abdomen: Bowel Sounds Present, Soft, Non-Distended, No Hepato-splenomegaly, Distended - slight, diffuse., Obese Extremities: No edema, No Calf Tenderness Skin: No rashes, No breakdown Psych/Mental Status: Normal Affect, Appropriate Laboratory Results 07/01/19 12:05: WBC 6.1, RBC 4.94, Hgb 13.4, Hct 43.8, MCV 88.7, MCH 27.1, MCHC 30.6 L, RDW Std Deviation 51.0 H, RDW Coeff of [place] 15.7 H, Plt Count 176, MPV 10.4, Immature Gran % (Auto) 0.200, Neut % (Auto) 65.5, Lymph % (Auto) 26.9, [place] % (Auto) 4.6, Eos % (Auto) 2.3, Baso % (Auto) 0.5, Absolute Neuts (auto) 4.0, Absolute Lymphs (auto) 1.63, Nucleated RBC % 0 07/01/19 12:05: Sodium 136, Potassium 3.8, Chloride 105, Carbon Dioxide 25.0, Anion Gap 6, BUN 10, Creatinine 0.83, Estim Creat Clear Calc 80.14, Est GFR (MDRD) Af Amer 99, Est GFR (MDRD) Non-Af 82, BUN/Creatinine Ratio 12.0, Glucose 323 H, Calcium 8.7, Total Bilirubin 0.40, AST 69 H, ALT 101 H, Alkaline Phosphatase 144 H, Total Protein 7.7, Albumin 3.2, Globulin 4.5 H, Albumin/Globulin Ratio 0.7 L, Lipase 542 H 07/01/19 12:05: Serum , Qual NEGATIVE 07/01/19 13:31: Urine Color Yellow, Urine Clarity Sl. Cloudy, Urine pH 7.0, Ur Specific [place] 1.010, Urine Protein Negative, Urine Glucose (UA) 1000 H, Urine Ketones Negative, Urine Occult Blood Negative, Urine Nitrite Negative, Urine Bilirubin Negative, Urine Urobilinogen Normal, Ur Leukocyte Esterase Negative, Urine RBC 0-5 SEEN, Urine WBC 0-5 SEEN, Ur Squamous Epith Cells 0-5 SEEN, Urine Bacteria RARE, Urine Mucus 0 SEEN 07/01/19 16:38: POC Glucose 166 H 07/01/19 21:00: POC Glucose 112 H 07/02/19 07:03: POC Glucose 180 H 07/02/19 08:02: Sodium 138, Potassium 3.8, Chloride 106, Carbon Dioxide 24.0, Anion Gap 8, BUN 10, Creatinine 0.73, Estim Creat Clear Calc 91.11, Est GFR (MDRD) Af Amer 114, Est GFR (MDRD) Non-Af 94, BUN/Creatinine Ratio 13.6, Glucose 204 H, Calcium 8.5, Total Bilirubin 0.60, AST 165 H, ALT 138 H, Alkaline Phosphatase 122 H, Total Protein 7.1, Albumin 3.0 L, Globulin 4.1, Albumin/Globulin Ratio 0.7 L, Lipase 389 Current Medications Albuterol Sulfate (Ventolin Aerosols) 2.5 mg INHALATION Q2H PRN PRN PRN Reason: SOB &/OR WHEEZING Albuterol Sulfate (Ventolin Aerosols) 2.5 mg INHALATION Q6HWA.RT [facility] Last Admin: 07/02/19 06:45 Dose: 2.5 mg Documented by: Aripiprazole (Abilify) 2 mg PO QHS [facility] Last Admin: 07/01/19 21:07 Dose: 2 mg Documented by: Budesonide (Pulmicort Aerosol) 0.5 mg INHALATION Q12H.RT [facility] Last Admin: 07/02/19 06:45 Dose: 0.5 mg Documented by: Citalopram Hydrobromide (Celexa) 40 mg PO DAILY [facility] Dextrose (D50w Syringe) 0 gm IV X1 PRN; Protocol PRN Reason: Hypoglycemia Enoxaparin Sodium (Lovenox) 40 mg SC BID [facility] Last Admin: 07/01/19 21:07 Dose: 40 mg Documented by: Glucagon () 1 mg IM .X1 PRN PRN Reason: Hypoglycemia Insulin Human Lispro (Humalog Kwikpen (Bkc)) 0 unit SC ACHS [facility]; Protocol Last Admin: 07/02/19 07:04 Dose: 1 units Documented by: Lamotrigine (Lamictal) 200 mg PO BID [facility] Last Admin: 07/01/19 21:06 Dose: 200 mg Documented by: Lidocaine (Lidoderm Patch) 2 patch TOPICAL DAILY [facility]; Protocol Loratadine (Claritin) 10 mg PO DAILY [facility] Lorazepam (Ativan) 1 mg PO BID PRN PRN PRN Reason: ANXIETY Montelukast Sodium (Singulair) 10 mg PO QHS [facility] Last Admin: 07/01/19 21:05 Dose: 10 mg Documented by: Morphine Sulfate () 2 mg IV Q3H PRN PRN PRN Reason: Pain Score 6-10/10 Last Admin: 07/02/19 03:24 Dose: 2 mg Documented by: Naproxen (Naprosyn) 500 mg PO BID PRN PRN PRN Reason: Pain or Fever Nicotine (Nicoderm Cq (Pbkc)) 14 mg TRANSDERM. DAILY [facility] Nicotine Polacrilex ([place] Nicotine (Bkc)) 2 mg PO Q2H PRN PRN PRN Reason: Nicotine Craving Pantoprazole Sodium (Protonix) 20 mg PO DAILY [facility] Rizatriptan Benzoate (Maxalt) 5 mg PO X1 PRN PRN Reason: MIGRAINE SYMPTOMS Last Admin: 07/02/19 07:14 Dose: 5 mg Documented by: Sodium Chloride () 5 - 15 ml IV UD PRN PRN Reason: SALINE FLUSH Last Admin: 07/01/19 21:12 Dose: 10 ml Documented by: Spironolactone (Aldactone) 25 mg PO DAILY [facility] Topiramate (Topamax) 100 mg PO BID [facility] Last Admin: 07/01/19 21:06 Dose: 100 mg Documented by: Trazodone HCl (Desyrel) 200 mg PO QHS [facility] Last Admin: 07/01/19 21:06 Dose: 200 mg Documented by: STROKE Vital Signs/Narrative: Vital Signs Temp Pulse Resp BP Pulse Ox 07/02/19 09:35 37.2 C 97 18 137/79 H 97 07/02/19 06:45 89 19 H Medical Necessity - Tobacco Use Smoking Status: Current every day smoker Tobacco Use: Cigarettes Assessment/Plan All Active Problems Abdominal pain (Acute) Asthma (Acute) Chest pain (Acute) Abnormal cardiovascular stress test (Acute) Umbilical hernia (Acute) 1. abdominal pain * improving * CT normal * lipase slightly elevated upon arrival, but now resolved. therefore, doubt acute pancreatitis. * LFTs slightly elevated, but I suspect due to steatohepatitis * advance diet, if tolerates--discharge home. 2. elevated LFTs * suspect due to steatohepatitis * advised weight loss * addressed to patient that it could progress to cirrhosis (though unlikely) 3. DM2 * at home, MBS, range from 120-180s * here, 112-180 * continue metformin 4. VTE proph: LMWH. Code Visit OBSV E&M: 37579 Subsequent observation care L2 - disregard this billing if patient discharged today.
[2019-07-02] MEDS: lamoTRIgine 100 MG Tablet 200 MG PO (10:23)
[2019-07-02] MEDS: Citalopram 40 MG TABLET PO (10:23)
[2019-07-02] MEDS: Pantoprazole Sodium 20 MG Tablet PO (10:23)
[2019-07-02] MEDS: Lidocaine 5% Patch 2 PATCH TOPICAL (10:24)
[2019-07-02] MEDS: Spironolactone 25 MG Tablet PO (10:25)
[2019-07-02] MEDS: Enoxaparin 40 MG/0.4 ML Syringe SC (10:25)
[2019-07-02] MEDS: Topiramate 100 MG Tablet PO (10:25)
[2019-07-02] MEDS: Loratadine 10 MG Tablet PO (10:29)
[2019-07-02 11:30] LABS: Bedside Glucose 203 mg/dL (70-110)
--- NOTE | 2019-07-02 14:32 | DCINST_ITS ---
- Discharge Diagnoses Current Active Problems: Current Active and Chronic Problems Abdominal pain (Acute) Super-super obese (Chronic) Asthma (Acute) You will use the following diet at home:: Calorie/Carbohydrate Controlled (specify 1200, 1400, etc) - 1800 Your food should be the consistency of: Regular Your liquids should be the consistency of: Regular/Thin Discharge Activity: Return to Normal Activity Call your doctor if you observe: Fever of 101 or Higher, - - intractable nausea and vomiting. Allergies/Adverse Reactions: Allergies melatonin Allergy (Verified 07/01/19 11:31) Hives Penicillins Allergy (Verified 07/01/19 11:31) Hives tramadol Allergy (Verified 07/01/19 11:31) Hives Medications to take at Discharge Loratadine [Claritin] 10 mg PO DAILY 07/07/13 Lorazepam [Ativan] 1 mg PO BID PRN PRN 12/11/13 Albuterol Inhaler [Ventolin Hfa] 1 puff INHALATION Q4H PRN PRN 03/26/14 Fluticasone/Salmeterol [Advair 250/50 Mcg Diskus] 1 puff INHALATION BID 03/26/14 traZODone [Desyrel] 200 mg PO QHS 01/12/15 Montelukast [Singulair] 10 mg PO QHS 08/10/16 Sumatriptan Succinate [Imitrex] 25 mg PO .X1 PRN PRN 08/10/16 Esomeprazole Mag Trihydrate [Nexium] 20 mg PO DAILY 03/07/18 Aripiprazole [Abilify] 2 mg PO QHS 07/01/19 Citalopram [Celexa] 40 mg PO DAILY 07/01/19 Lamotrigine [Lamictal] 200 mg PO BID 07/01/19 Metformin HCl 1,000 mg PO BID 07/01/19 Naproxen [Naprosyn] 500 mg PO BID PRN PRN 07/01/19 Spironolactone 25 mg PO DAILY 07/01/19 Topiramate 100 mg PO BID 07/01/19 Primary Care Physician: Verona Villarreal MD [Primary Care Provider] - Within 2 Weeks Test Results: Test results from this visit will be discussed in further detail at your follow- up appointment, if applicable. Proposed Discharge Date: 07/02/19
--- NOTE | 2019-07-02 14:34 | DS.PCM_ITS ---
Discharge Date and Diagnosis - Problem List Patient Problems: Active and Suspected Problems Abdominal pain (Acute) Asthma (Acute) Date of Admission: 07/01/19 Date of Discharge: 07/02/19 - Primary Discharge Diagnosis Active and Suspected Problems Abdominal pain (Acute) Asthma (Acute) 1. abdominal pain * improving * CT normal * lipase slightly elevated upon arrival, but now resolved. therefore, doubt acute pancreatitis. * LFTs slightly elevated, but I suspect due to steatohepatitis * advance diet, if tolerates--discharge home. 2. elevated LFTs * suspect due to steatohepatitis * advised weight loss * addressed to patient that it could progress to cirrhosis (though unlikely) 3. DM2 * at home, MBS, range from 120-180s * here, 112-180 * continue metformin - Secondary Discharge Diagnosis Chronic Problems Super-super obese (Chronic) Bipolar 1 disorder (Chronic) Diabetes (Chronic) Smoker (Chronic) Obesity (Chronic) Hospital Course and Treatment Imaging Results: Clinical Impression(s) from Imaging Studies Abdomen/Pelvis CT 07/01/19 11:52 IMPRESSION: Fatty infiltration of the liver. Mild splenomegaly. Electronically Signed: Bernardo Barbosa, at 13:39 EDT , Service support , Operations: None Procedures: None Summary of Care Provided: The patient is a 38 year old F presents with nausea and vomiting. Etiology is not determined but patient did improve. Patient did have transient slight elevation in lipase but not felt to be overt pancreatitis. LFTs were slightly elevated but that this may relate with patient's steatohepatitis. For the steatohepatitis, patient advised weight loss and further monitoring. Was informed of the potential risk of development of the cirrhosis though rare. [] Patient Problems: Active and Suspected Problems Abdominal pain (Acute) Asthma (Acute) - Physical Exam Vital Signs Temp Pulse Resp BP Pulse Ox 37.2 C 97 18 137/79 H 97 07/02/19 09:35 07/02/19 09:35 07/02/19 09:35 07/02/19 09:35 07/02/19 09:35 Oxygen Delivery Method Room Air Weight: 169.1 kg Body Mass Index (BMI) 64.0 Finger Stick Blood Glucose 135 Intake and Output for Last 24 Hours 06/30/19 07/01/1907/02/19 23:59 23:59 23:59 Intake Total 1100 / 1100 600 / 600 Output Total 300 / 300 350 / 350 Balance 800 / 800 250 / 250 Laboratory Tests Past 24 Hrs 07/02/19 08:02 Sodium 138 Potassium 3.8 Chloride 106 Carbon Dioxide 24.0 Anion Gap 8 BUN 10 Creatinine 0.73 Estim Creat Clear Calc 91.11 Est GFR (MDRD) Af Amer 114 Est GFR (MDRD) Non-Af 94 BUN/Creatinine Ratio 13.6 Glucose 204 H Calcium 8.5 Total Bilirubin 0.60 AST 165 H ALT 138 H Alkaline Phosphatase 122 H Total Protein 7.1 Albumin 3.0 L Globulin 4.1 Albumin/Globulin Ratio 0.7 L Lipase 389 POC Glucose 07/02/19 07/02/19 07/01/19 11:24 07:03 21:00 POC Glucose 203 H 180 H 112 H 07/01/19 16:38 POC Glucose 166 H Discharge Diet: No Restrictions Discharge Activity: Return to Normal Activity Call your doctor if you observe: Fever of 101 or Higher, - - intractable nausea and vomiting. Home Medications: Medications to take at Discharge Loratadine [Claritin] 10 mg PO DAILY 07/07/13 Lorazepam [Ativan] 1 mg PO BID PRN PRN 12/11/13 Albuterol Inhaler [Ventolin Hfa] 1 puff INHALATION Q4H PRN PRN 03/26/14 Fluticasone/Salmeterol [Advair 250/50 Mcg Diskus] 1 puff INHALATION BID 03/26/14 traZODone [Desyrel] 200 mg PO QHS 01/12/15 Montelukast [Singulair] 10 mg PO QHS 08/10/16 Sumatriptan Succinate [Imitrex] 25 mg PO .X1 PRN PRN 08/10/16 Esomeprazole Mag Trihydrate [Nexium] 20 mg PO DAILY 03/07/18 Aripiprazole [Abilify] 2 mg PO QHS 07/01/19 Citalopram [Celexa] 40 mg PO DAILY 07/01/19 Lamotrigine [Lamictal] 200 mg PO BID 07/01/19 Metformin HCl 1,000 mg PO BID 07/01/19 Naproxen [Naprosyn] 500 mg PO BID PRN PRN 07/01/19 Spironolactone 25 mg PO DAILY 07/01/19 Topiramate 100 mg PO BID 07/01/19 Primary Care Physician: Verona Villarreal MD [Primary Care Provider] - Within 2 Weeks Disposition: Home Minutes spent on discharge:: 28 Patient Condition:: Good Medical Necessity - Tobacco Use Smoking Status: Current every day smoker Tobacco Use: Cigarettes Meaningful Use Info Meaningful Use Diagnoses (Choose all that apply): None applicable Code Visit OBSV E&M: 57612 Observation care discharge
[2019-07-02 15:00] VITALS: BP 128/70; PULSE 74; RESP 18; TEMP 36.9; O2SAT 98
== END 2019-07-02 14:58 | disposition home or self-care (01) ==
LOC: ED 12:02 → MS3 15:09
PROVIDERS: Admitting Provider Internal Medicine; Emergency Provider Emergency Medicine; Family Provider Internal Medicine; PCP Internal Medicine
DX: R10.11 Right upper quadrant pain (principal); K52.9 Noninfective gastroenteritis and colitis, unspecified; E11.9 Type 2 diabetes mellitus without complications; R79.89 Other specified abnormal findings of blood chemistry; F31.9 Bipolar disorder, unspecified; J45.909 Unspecified asthma, uncomplicated; Z79.899 Other long term (current) drug therapy; Z79.84 Long term (current) use of oral hypoglycemic drugs; F17.210 Nicotine dependence, cigarettes, uncomplicated; E66.01 Morbid (severe) obesity due to excess calories; Z68.44 Body mass index [BMI] 60.0-69.9, adult; Z71.3 Dietary counseling and surveillance; Z91.5 Personal history of self-harm; F41.9 Anxiety disorder, unspecified; K75.81 Nonalcoholic steatohepatitis (NASH)
CPT/HCPCS: 36415; 74177; 80053; 81001; 82962; 83690; 84703; 85025; 94640; 94660; 96372; 96374; 96375; 96376; 97802; 99218; 99284; 99406; J7030; Q9967; A4216; G0378; J2405

== ENCOUNTER 2019-07-03 21:50 | Emergency (ER) | payer MEDICAID, SELFPAY ==
[2019-07-01 15:52] VITALS: BMI 64.0
[2019-07-03 21:51] VITALS: BP 134/77; PULSE 87; RESP 18; TEMP 36.8; O2SAT 98; BMI 62.9
[2019-07-03] MEDS: Ketorolac 30 MG/ML Syringe IV (22:56)
[2019-07-03 23:03] LABS: Absolute Lymphocyte Count 1.94 X10^3/uL (0.83-4.51); Absolute Neutrophil Count 4.5 X10^3/uL (2.0-7.7); Basophil# 0.03 X10^3/uL; Basophil% 0.4 % (0-1); Eosinophil# 0.21 X10^3/uL; Hematocrit 39.2 % (37-47); Hemoglobin 12.3 g/dL (12.0-15.0); Lymphocyte # 1.94 X10^3/ul (4.0); Lymphocyte % 27.5 % (19-41); Mean Corp Hgb Conc 31.4 g/dL (32-36); Mean Corpuscular Hgb 27.5 pg (27.0-32.0); Mean Corpuscular Volume 87.7 fL (81-99); Mean Platelet Vol. 9.7 fl (6.2-12.0); Monocyte# 0.35 X10^3/uL; NRBC Flagged by Analyzer 0 % (0-5); Neutrophil % 63.8 % (47-70); Platelet Count 170 K/mm3 (150-450); RBC Distribution Width CV 15.9 % (11.6-14.6); Red Blood Count 4.47 M/mm3 (4.2-5.4); White Blood Count 7.1 K/mm3 (4.4-11.0)
--- NOTE | 2019-07-03 23:12 | ED.VISSUMM ---
- ER Visit Summary Date of Service: 07/03/19 Chief Complaint: Right-sided abdominal pain History of Present Illness: The patient is a 38 F who presents with continued right-sided abdominal pain. She was seen on 07/01 and admitted into the hospital with elevated lipase levels. She had a negative CT of her abdomen pelvis. She was discharged yesterday after labs were normalized. Prior to her admission symptoms have been present for about 4 days and included nausea vomiting and diarrhea. She states she has been eating okay and in fact ate a meal 1 hour prior to arrival in the department. No fevers. Normal bowel movement. No urinary symptoms. Some movements seem to make the pain worse. Sometimes she states that just sitting down makes it worse. She denies any rashes in the area. No radiation to the back. Physical Examination: Afebrile vital signs are stable Gen: Well-nourished well-developed morbid obesity Head: Normocephalic atraumatic Eyes: Perrl EOMI ENT: TMs clear no rhinorrhea moist mucous membranes Neck: Supple no lymphadenopathy no JVD nontender CVS: Regular rate rhythm no murmurs normal S1-S2 Respiratory: No distress clear to auscultation bilaterally chest nontender Abdomen: Soft tender to palpation without guarding or rebound nondistended normal bowel sounds no masses Back: Nontender Extremity: Nontender no edema Skin: Normal color no rash (specifically looking at the skin in the area that the patient hurts as well as the back close.) Neuro: alert orientated ?3 CN II-XII intact normal strength sensation Psych: Normal affect normal mood Test Results: CBC BMP were normal. Lipase 329. Alk phos 122 ALT 115 AST 99. Urinalysis negative. CT of the pelvis showed no acute findings Emergency Department Course and Treatment: Patient received Toradol. I could not perform a gallbladder ultrasound which would be reasonable given her recent hospitalization and symptoms and elevated lipase level because the patient had just ingested a large meal and gallbladder is contracted. On the right for her to have this done as an outpatient. I will write for a few [place]. Impression: 1. Acute abdominal pain This note was generated with Blurration software. It may contain incorrect words, spelling, and punctuation that were not noted in review of the chart prior to signing ED Disposition - Plan for ED Patient: Disposition: Home or Assisted Living Instructions: BILIARY COLIC with Gallstone (Presumed) Prescriptions: Hydrocodone Bitart/Apap 5-325 [[place] 5MG-325MG] 1 tab PO Q6H PRN PRN 3 Days #12 tab PRN Reason: Pain Prescription Printed Referrals: Verona Villarreal MD [Primary Care Provider] - Keep Jamee appointment
[2019-07-03 23:21] LABS: AST(SGOT) 99 U/L (15-37); Alanine Aminotransfer ALT/SGPT 115 U/L (13-56); Albumin, Serum 3.2 g/dL (3.2-5.0); Alkaline Phosphatase 122 U/L (45-117); Anion Gap 5 (5-15); BUN 7 mg/dL (7-18); BUN/Creat Ratio 8.7 RATIO (10-20); Bilirubin, Direct 0.18 mg/dL (0.00-0.30); Calcium,Total 8.9 mg/dL (8.5-10.1); Chloride 108 mmol/L (98-107); Creatinine, Serum 0.81 mg/dL (0.55-1.02); EST Glomerular Filtration Rate 85 mL/min (>60); Est Glom Filt Rate - Afr Amer 102 mL/min (>60); Estimated Creatinine Clearance 82.12 ml/min; Glucose 169 mg/dL (74-106); Lipase 329 U/L (73-393); Potassium 3.7 mmol/L (3.5-5.1); Protein, Total 7.2 g/dL (6.4-8.2); Sodium Level 139 mmol/L (136-145)
[2019-07-03 23:33] LABS: Mucous, Urine 0 SEEN /hpf (<or=2+); Red Blood Cells-Urine 0 SEEN /hpf (0-5)
[2019-07-03 23:35] LABS: Color, Urine Yellow (Yellow); Glucose, Dipstick Normal (Normal); Ketone-Dipstick Negative (Negative); Leukocyte Esterase-Dipstick 25 /ul (Negative); Nitrite-Dipstick Negative (Negative); Occult Blood-Urine Negative /ul (Negative); Protein-Dipstick Negative (Negative); Urine Bilirubin Dipstick Negative (Negative); Urine Clarity Sl. Cloudy (Clear); Urine Urobilinogen 8 mg/dl (Normal)
[2019-07-03 23:39] LABS: Internal QC Validated? YES +Cl - CLEAR BKGD; Pregnancy, Urine Negative Negative
[2019-07-03 23:41] LABS: Bacteria RARE /hpf (None Seen); Squamous Epithelial Cells - UA 5-10 SEEN /hpf (5-10); White Blood Cells 0-5 SEEN /hpf (0-5)
--- NOTE | 2019-07-03 23:47 | CT_ITS ---
STUDY: CT ABDOMEN AND PELVIS WITH CONTRAST REASON FOR EXAM: Female, 38 years old. Abdominal pain, right-sided RADIATION DOSAGE (If Supplied By Facility): CTDIvol = ( 29.07 ) mGy, DLP = ( 1815.14 ) mGycm TECHNIQUE: Transaxial images were obtained from the dome of the diaphragm to the symphysis pubis without oral contrast. IV 100mL [id number]-300 100ML was administered. Sagittal and coronal images were reconstructed. Individualized dose optimization techniques were used for this CT. COMPARISON: CT abdomen and pelvis from 07/01/2019 FINDINGS: The visualized lung bases are unremarkable. The visualized portions of the heart are within normal limits. There is decreased attenuation of the liver consistent with steatosis. Normal gallbladder and extrahepatic biliary system. There is mild splenomegaly. Normal pancreas. Normal bilateral adrenal glands. Normal right kidney. Normal left kidney. Normal visualized stomach. Normal small intestine. Normal colon. The appendix is visualized and appears normal. Normal abdominal aorta. Normal inferior vena cava. Normal retroperitoneum. Normal urinary bladder. Normal abdominal wall. Normal osseous structures. CT/Abdomen/Pelvis W IV Cont ONLY IMPRESSION: Negative enhanced CT of the abdomen and pelvis for acute intra-abdominal abnormality or interval change. Electronically Signed: Go Soares, at 0:26 EDT Tel , Service support ,
[2019-07-04] VITALS: BP 129/72; PULSE 80; RESP 18; O2SAT 96
[2019-07-04 01:26] VITALS: BP 137/82; PULSE 88; RESP 18; O2SAT 96
== END 2019-07-04 01:27 | disposition home or self-care (01) ==
PROVIDERS: Emergency Provider Emergency Medicine; Family Provider Internal Medicine; PCP Internal Medicine
DX: R10.9 Unspecified abdominal pain (principal); R11.2 Nausea with vomiting, unspecified; R19.7 Diarrhea, unspecified; E11.9 Type 2 diabetes mellitus without complications; F31.9 Bipolar disorder, unspecified; E66.01 Morbid (severe) obesity due to excess calories; Z72.0 Tobacco use; Z79.84 Long term (current) use of oral hypoglycemic drugs; Z79.899 Other long term (current) drug therapy
CPT/HCPCS: 74177; 80048; 80076; 81001; 81025; 83690; 85025; 96374; 99283; Q9967

== ENCOUNTER → 2019-07-15 | Outpatient (CLI) | payer MEDICAID, SELFPAY ==
[2019-07-03 21:51] VITALS: BMI 62.9
--- NOTE | 2019-07-15 08:51 | US_ITS ---
STUDY: ABDOMINAL ULTRASOUND - RIGHT UPPER QUADRANT REASON FOR VISIT: Female, 38 years old. Abdominal pain TECHNIQUE: Ultrasound evaluation of the right upper quadrant was performed with real-time and static boyce-scale imaging. TECHNICAL QUALITY: Limited by body habitus. COMPARISON: CT dated 07/03/2019 FINDINGS: Liver: The liver measures 20.9 cm. There is increased echogenicity consistent with fatty infiltration. The bile ducts are within normal limits. There is hepatic color flow. The direction of portal flow is hepatopetal. There is no demonstrated mass lesion. Gallbladder: Normal distended gallbladder. The gallbladder wall measures 3 mm. There is a negative sonographic Jain's sign. There is no pericholecystic fluid. There are no gallstones. Common Bile Duct (C.B.D.): The common bile duct measures 5 mm. Pancreas: Normal size of the head, body and tail of the pancreas. There is normal echogenicity of the pancreas. There is no demonstrated pancreatic mass or cyst. Right Kidney: Normal size of the right kidney. The right kidney measures 16.0 cm. Normal renal cortex. There is no demonstrated renal mass or cyst. There is no right hydronephrosis. US/Gallbladder IMPRESSION: Enlarged, fatty liver. No focal hepatic lesions identified. Otherwise, unremarkable right quadrant ultrasound. Electronically Signed: Carlin Gr, at 17:00 EDT Tel , Service support ,
== END | disposition home or self-care (01) ==
LOC: US 08:49
PROVIDERS: Family Provider Internal Medicine; PCP Internal Medicine; Referring Provider Emergency Medicine; Visit Provider Emergency Medicine
DX: R10.9 Unspecified abdominal pain (principal)
CPT/HCPCS: 76705

== ENCOUNTER 2019-08-30 18:36 | Emergency (ER) | payer MEDICAID, SELFPAY ==
[2019-08-30 18:37] VITALS: BP 139/71; PULSE 97; RESP 17; TEMP 36.9; O2SAT 99; BMI 60.0
--- NOTE | 2019-08-30 19:04 | ED.RN ---
PATIENT STATES THERE IS A CHANCE SHE COULD BE . SHE IS 10 DAYS LATE FOR HER PERIOD.
[2019-08-30 20:13] LABS: Mucous, Urine 0 SEEN /hpf (<or=2+)
[2019-08-30 20:16] LABS: Absolute Neutrophil Count 4.2 X10^3/uL (2.0-7.7); Basophil# 0.04 X10^3/uL; Basophil% 0.6 % (0-1); Eosinophil# 0.19 X10^3/uL; Eosinophils% 2.8 % (0-5); Hemoglobin 12.9 g/dL (12.0-15.0); Lymphocyte % 29.2 % (19-41); Mean Corp Hgb Conc 30.7 g/dL (32-36); Mean Corpuscular Hgb 26.8 pg (27.0-32.0); Mean Corpuscular Volume 87.1 fL (81-99); Mean Platelet Vol. 9.8 fl (6.2-12.0); Monocyte# 0.42 X10^3/uL; Monocyte% 6.1 % (0-10); NRBC Flagged by Analyzer 0 % (0-5); Neutrophil # 4.17 X10^3/uL (2.7-7.7); Neutrophil % 60.9 % (47-70); POSITIVE MORPHOLOGY YES; Platelet Count 189 K/mm3 (150-450); RBC Distribution Width SD 51.3 fl (35.1-43.9); Red Blood Count 4.82 M/mm3 (4.2-5.4); White Blood Count 6.9 K/mm3 (4.4-11.0)
[2019-08-30 20:17] LABS: Color, Urine Yellow (Yellow); Glucose, Dipstick 50 mg/dl (Normal); Ketone-Dipstick Negative (Negative); Leukocyte Esterase-Dipstick Negative /ul (Negative); Nitrite-Dipstick Negative (Negative); Occult Blood-Urine Negative /ul (Negative); Protein-Dipstick Negative (Negative); Specific Gravity, Urine 1.015 (1.002-1.030); Urine Bilirubin Dipstick Negative (Negative); Urine Clarity Clear (Clear); Urine Urobilinogen 4 mg/dl (Normal); Urine pH 6.5 (5.0 - 8.0)
[2019-08-30] MEDS: 0.9% Normal Saline 1,000 ML 1000 ML IV (20:18)
[2019-08-30 20:19] LABS: Internal QC Validated? YES +Cl - CLEAR BKGD; Pregnancy, Urine Negative Negative
[2019-08-30 20:20] LABS: Differential Indicated SCAN CRITERIA MET
[2019-08-30 20:29] LABS: Red Blood Cells-Urine 0-5 SEEN /hpf (0-5); Squamous Epithelial Cells - UA 0-5 SEEN /hpf (5-10)
[2019-08-30 20:30] LABS: Bacteria RARE /hpf (None Seen); White Blood Cells 0-5 SEEN /hpf (0-5)
[2019-08-30 20:36] VITALS: BP 139/76; PULSE 87; RESP 15; O2SAT 97
[2019-08-30 20:46] LABS: ALB/GLOB Ratio 0.8 RATIO (0.9-2.4); AST(SGOT) 129 U/L (15-37); Alanine Aminotransfer ALT/SGPT 135 U/L (13-56); Albumin, Serum 3.4 g/dL (3.2-5.0); Alkaline Phosphatase 139 U/L (45-117); Anion Gap 5 (5-15); BUN 10 mg/dL (7-18); BUN/Creat Ratio 12.7 RATIO (10-20); Calcium,Total 8.9 mg/dL (8.5-10.1); Chloride 108 mmol/L (98-107); Creatinine, Serum 0.79 mg/dL (0.55-1.02); EST Glomerular Filtration Rate 87 mL/min (>60); Est Glom Filt Rate - Afr Amer 105 mL/min (>60); Estimated Creatinine Clearance 84.19 ml/min; Globulin 4.4 g/dL (2.2-4.2); Glucose 172 mg/dL (74-106); Lipase 313 U/L (73-393); Potassium 4.2 mmol/L (3.5-5.1); Protein, Total 7.8 g/dL (6.4-8.2); Sodium Level 140 mmol/L (136-145)
[2019-08-30 20:47] LABS: Differential Comment SCANNED
--- NOTE | 2019-08-30 20:59 | CT_ITS ---
STUDY: CT ABDOMEN AND PELVIS WITHOUT CONTRAST REASON FOR EXAM: Female, 38 years old. Diarrhea. Umbilical hernia. Diabetes. Abdominal pain. RADIATION DOSAGE (If Supplied By Facility): CTDIvol = ( 22.76 ) mGy, DLP = ( 1471.09 ) mGycm TECHNIQUE: Transaxial images were obtained from the dome of the diaphragm to the symphysis pubis without oral contrast, and without intravenous contrast. Sagittal and coronal images were reconstructed. Individualized dose optimization techniques were used for this CT. COMPARISON: 07/03/2019. FINDINGS: Exam is limited by patient size. This causes artifact and decreases resolution. Fatty liver and marked hepatomegaly. Splenomegaly. Grossly normal gallbladder, pancreas, and adrenal glands. Normal right kidney. Normal left kidney. Evaluation of the GI tract is limited by absence of oral contrast. Cannot exclude stomach wall thickening. No dilated loops of bowel or evidence for obstruction. Cannot exclude segmental thickening of the nguyen of the small or large bowel. Cannot exclude enteritis or colitis. Moderate diffuse fecal retention. Appendix within normal limits. Normal abdominal aorta. Normal inferior vena cava. Normal retroperitoneum. Normal urinary bladder. Normal visualized uterus. There is bilateral prominence and enlargement of the ovaries. The right measures as much as 6 cm greatest dimension. Suggest further evaluation with ultrasound. There is a small umbilical hernia containing fat. Normal osseous structures. CT/Abdomen/Pelvis W IV Cont ONLY IMPRESSION: Limited by patient''s size. Fatty liver and prominent hepatosplenomegaly, stable. Bilateral large ovaries especially on the right, ultrasound recommended. Electronically Signed: Florin Butcher MD at 22:20 EST , Service support ,
--- NOTE | 2019-08-30 21:11 | ED.VIS.GI ---
History of Present Illness Chief Complaint: Abd Pain Informant: Patient - Abdominal Pain/Flank Pain Onset: Days - 5 Context: Gradual Onset Quality: Aching Location: Diffuse - Nausea/Vomiting/Emesis GI Symptom: Nausea - Diarrhea/Melena/Hematochezia GI Symptom: Diarrhea Stool Quality: Loose Severity: Mild LMP: unknown Narrative: Patient is a 38-year-old female with history of umbilical hernia repair, diabetes mellitus, kidney stones and back pain presenting with diffuse abdominal pain. She states is been worse over the past 5 days. She has associated nausea but no vomiting. She had diarrhea but has not been improving. She states he feels lightheaded because of her symptoms. She states she is never had any like this before. She describes the pain as aching in nature. Does not radiate but is difficult to localize. She denies associated chest pain, shortness of breath, fever, chills, urinary symptoms or abnormal vaginal discharge. She states her last menstrual period was 1 month ago and she is 10 days late. She is not sure if she was . She denies any other complaints at this time. She is not tried to take anything at home for her symptoms. Past Medical History - Allergies and Home Meds Allergies/Adverse Reactions: Allergies melatonin Allergy (Verified 08/30/19 18:37) Hives Penicillins Allergy (Verified 08/30/19 18:37) Hives tramadol Allergy (Verified 08/30/19 18:37) Hives Primary Care Physician: Verona Villarreal MD [Primary Care Provider] - Surgical History: - - umbilical hernia repair Smoking Status: Current every day smoker - Family History Paternal Family History: Reports: Diabetes, Heart Disease Maternal Family History: Reports: No pertinent history Review of Systems General: Reports: - - lightheaded . Denies: Chills, Fever, Sweats Eyes: Denies: Visual changes - bilaterally, Diplopia ENT: Denies: Rhinorrhea, Sore throat Cardiovascular: Denies: Chest pain, Palpitations Respiratory: Denies: Dyspnea, Cough, Dyspnea on exertion Gastrointestinal: Reports: Abdominal pain, Nausea, Diarrhea. Denies: Vomiting, Melena, Hematochezia Genitourinary: Denies: Dysuria, Hematuria, Frequency Musculoskeletal: Denies: Back pain, Extremity Pain Skin: Denies: Rash, Wounds Neurological: Denies: Headache, Weakness, Numbness Physical Exam Vital Signs/Narrative: Vital Signs Temp Pulse Resp BP Pulse Ox 08/30/19 18:37 98.5 F 97 17 139/71 H 99 Inital Vital Signs reviewed: Yes General: Well nourished, Well developed, Obese, No Acute Distress Head: Normocephalic, Atraumatic Eyes: Perrl, EOMI ENT: Moist mucous membranes, No rhinorrhea Neck: Supple, Nontender Cardiovascular: Regular rate, Regular rhythm, No murmurs Respiratory: No distress, CTA bilaterally, Chest nontender Abdomen: Soft, Nondistended, Normal bowel sounds, Tender - diffuse. Negative for: Jain's sign Back: Nontender, Normal Inspection. Negative for: CVA tenderness Extremities: Nontender, No edema Skin: Normal color, No rash Neurological: Alert, Oriented x3, Cranial nerves II-XII grossly intact, Normal Strength, Normal Sensation Psychological: Normal affect, Normal Mood Diagnostic/Tx/Re-eval Clinical Impression(s) from Imaging Studies Abdomen/Pelvis CT 08/30/19 20:59 IMPRESSION: Limited by patient''s size. Fatty liver and prominent hepatosplenomegaly, stable. Bilateral large ovaries especially on the right, ultrasound recommended. Electronically Signed: Florin Butcher MD at 22:20 EST , Service support , Laboratory Data 08/30/19 08/30/19 08/30/19 20:00 20:00 20:05 WBC 6.9 RBC 4.82 Hgb 12.9 Hct 42.0 MCV 87.1 MCH 26.8 L MCHC 30.7 L RDW Std Deviation 51.3 H RDW Coeff of [place] 16.0 H Plt Count 189 MPV 9.8 Immature Gran % (Auto) 0.400 Neut % (Auto) 60.9 Lymph % (Auto) 29.2 [place] % (Auto) 6.1 Eos % (Auto) 2.8 Baso % (Auto) 0.6 Absolute Neuts (auto) 4.2 Absolute Lymphs (auto) 2.00 Nucleated RBC % 0 Differential Comment SCANNED Sodium 140 Potassium 4.2 Chloride 108 H Carbon Dioxide 27.0 Anion Gap 5 BUN 10 Creatinine 0.79 Estim Creat Clear Calc 84.19 Est GFR (MDRD) Af Amer 105 Est GFR (MDRD) Non-Af 87 BUN/Creatinine Ratio 12.7 Glucose 172 H Calcium 8.9 Total Bilirubin 0.40 AST 129 H ALT 135 H Alkaline Phosphatase 139 H Total Protein 7.8 Albumin 3.4 Globulin 4.4 H Albumin/Globulin Ratio 0.8 L Lipase 313 Urine Color Urine Clarity Urine pH Ur Specific [place] Urine Protein Urine Glucose (UA) Urine Ketones Urine Occult Blood Urine Nitrite Urine Bilirubin Urine Urobilinogen Ur Leukocyte Esterase Urine RBC Urine WBC Ur Squamous Epith Cells Urine Bacteria Urine Mucus Urine Test Negative 08/30/19 20:05 WBC RBC Hgb Hct MCV MCH MCHC RDW Std Deviation RDW Coeff of [place] Plt Count MPV Immature Gran % (Auto) Neut % (Auto) Lymph % (Auto) [place] % (Auto) Eos % (Auto) Baso % (Auto) Absolute Neuts (auto) Absolute Lymphs (auto) Nucleated RBC % Differential Comment Sodium Potassium Chloride Carbon Dioxide Anion Gap BUN Creatinine Estim Creat Clear Calc Est GFR (MDRD) Af Amer Est GFR (MDRD) Non-Af BUN/Creatinine Ratio Glucose Calcium Total Bilirubin AST ALT Alkaline Phosphatase Total Protein Albumin Globulin Albumin/Globulin Ratio Lipase Urine Color Yellow Urine Clarity Clear Urine pH 6.5 Ur Specific [place] 1.015 Urine Protein Negative Urine Glucose (UA) 50 H Urine Ketones Negative Urine Occult Blood Negative Urine Nitrite Negative Urine Bilirubin Negative Urine Urobilinogen 4 H Ur Leukocyte Esterase Negative Urine RBC 0-5 SEEN Urine WBC 0-5 SEEN Ur Squamous Epith Cells 0-5 SEEN Urine Bacteria RARE Urine Mucus 0 SEEN Urine Test - Medical Decision Making Patient is a 28-year-old female presenting with 5 days of diffuse abdominal pain. She feels like it is been worsening. Nontoxic and in no acute distress. She does have a tender abdomen but she has no peritoneal signs. Her vital signs are normal except for hypertension. Patient is initially concern for . Urinalysis is negative for . She has been given IV morphine and Toradol as well as IV fluids for her symptoms. On reevaluation patient does have improvement of her symptoms. CT of the abdomen and pelvis does not show any acute intra-abdominal pathology. She does have mildly enlarged ovaries but patient I think this is the cause of her presentation at this time based on her physical exam and symptom history. Patient is informed of these findings and states she has an appointment to see her [employer] on 19 September. She will follow-up with them. I do not think she needs an emergent pelvic ultrasound. Patient also has mildly fatty liver. Her gallbladder appears normal and she is not having signs of acute appendicitis or small bowel obstruction. Lab work shows a mild transaminitis but otherwise normal. This is consistent with her fatty liver on exam. Patient is then given IV Bentyl for her pain. She will be discharged home with a course of Bentyl and Zofran. The exact cause of her symptoms is not clear but I think she is stable for outpatient follow-up. She is instructed to follow-up with her PCP next week. Patient is counseled on signs and symptoms requiring return to the emergency room. Patient verbalizes agreement and understand this plan. Patient discharged home in stable and improved condition. ED Disposition - Plan for ED Patient: Disposition: Home or Assisted Living Diagnosis: Abdominal pain Instructions: ABDOMINAL PAIN, Unknown Cause, (Female) Prescriptions: Dicyclomine HCl [Bentyl] 20 mg PO TID PRN PRN #20 cap PRN Reason: Gi Cramping Prescription Printed Ondansetron [Zofran Odt] 4 mg PO Q8H PRN PRN #12 tab PRN Reason: Nausea Prescription Printed Referrals: Verona Villarreal MD [Primary Care Provider] - Additional Instructions: The exact cause of your abdominal pain is not clear but I think you are safe to go home. You do not require any emergent surgery or IV medications at this time. Follow-up with your primary care doctor next week if your symptoms do not improve. You do have enlargement of your ovaries on your CT. Please follow-up with your [employer] about this. I do not think is causing your pain today. Return to emergency room if you have worsening of your symptoms.
[2019-08-30] MEDS: Ketorolac 15 MG/ML Vial IV (21:43)
[2019-08-30] MEDS: Morphine 4 MG/ML Syringe IV (21:44)
[2019-08-30 22:29] VITALS: BP 139/76; PULSE 87; RESP 15; O2SAT 97
== END 2019-08-30 23:22 | disposition home or self-care (01) ==
PROVIDERS: Emergency Provider Emergency Medicine; Family Provider Internal Medicine; PCP Internal Medicine
DX: R10.84 Generalized abdominal pain (principal); R19.7 Diarrhea, unspecified; R11.0 Nausea; E11.9 Type 2 diabetes mellitus without complications; E66.9 Obesity, unspecified; F17.200 Nicotine dependence, unspecified, uncomplicated; Z88.8 Allergy status to other drugs, medicaments and biological substances; Z88.5 Allergy status to narcotic agent; Z88.0 Allergy status to penicillin; Z87.442 Personal history of urinary calculi
CPT/HCPCS: 74177; 80053; 81001; 81025; 83690; 85025; 96361; 96374; 96375; 99283; J7030; Q9967; A4216

== ENCOUNTER 2019-11-08 14:55 | Emergency (ER) | payer MEDICAID, SELFPAY ==
[2019-11-08 14:56] VITALS: BP 127/57; PULSE 93; RESP 20; TEMP 36.3; O2SAT 97; BMI 60.0
--- NOTE | 2019-11-08 15:31 | ED.VIS.GEN ---
History of Present Illness Chief Complaint: Abd Pain Informant: Patient Onset: Days - 3 days Context: Gradual Onset Current Severity: Moderate Maximum Severity: Moderate Narrative: Patient presents with generalized abdominal pain that is been ongoing for the past 3 days. She denies nausea, vomiting, or diarrhea. Her last bowel movement was 1 hour ago and did not change her symptoms. She denies fever or chills. She denies urinary symptoms. Her only prior abdominal surgery is umbilical hernia repair. - Past Medical History (1) Asthma Status: Chronic (2) Bipolar 1 disorder Status: Chronic (3) Diabetes Status: Chronic Past Medical History - Allergies and Home Meds Allergies/Adverse Reactions: Allergies melatonin Allergy (Verified 11/08/19 14:55) Hives Penicillins Allergy (Verified 11/08/19 14:55) Hives tramadol Allergy (Verified 11/08/19 14:55) Hives Primary Care Physician: Verona Villarreal MD [Primary Care Provider] - Prior records reviewed: Yes Surgical History: - - umbilical hernia repair Lives: With Family Smoking Status: Current every day smoker - Family History Paternal Family History: Reports: Diabetes, Heart Disease Maternal Family History: Reports: No pertinent history Review of Systems General: Denies: Chills, Fever Eyes: Denies: Visual changes - bilaterally ENT: Denies: Bilateral ear pain Cardiovascular: Denies: Chest pain Respiratory: Denies: Dyspnea, Cough Gastrointestinal: Reports: Abdominal pain. Denies: Nausea, Vomiting, Diarrhea Genitourinary: Denies: Dysuria Musculoskeletal: Denies: Swelling, Extremity Pain Skin: Denies: Rash Neurological: Denies: Headache Allergy: Denies: Uticaria Physical Exam Vital Signs/Narrative: Vital Signs Temp Pulse Resp BP Pulse Ox 11/08/19 14:56 97.4 F L 93 20 H 127/57 H 97 Inital Vital Signs reviewed: Yes General: Well nourished, Well developed Head: Normocephalic ENT: Moist mucous membranes Cardiovascular: Regular rate, Regular rhythm Respiratory: No distress, CTA bilaterally Abdomen: Soft, Tender - Mild diffuse tenderness palpation., Hypoactive bowel sounds. Negative for: Guarding, Rebound tenderness Extremities: Nontender Skin: Normal color Neurological: Alert, Oriented x3 Psychological: Normal affect Diagnostic/Tx/Re-eval Laboratory Results 11/08/19 11/08/19 11/08/19 15:40 15:40 15:40 WBC 5.6 RBC 4.84 Hgb 12.6 Hct 40.9 MCV 84.5 MCH 26.0 L MCHC 30.8 L RDW Std Deviation 51.8 H RDW Coeff of [place]tazar 16.9 H Plt Count 153 MPV 9.9 Immature Gran % (Auto) 0.400 Neut % (Auto) 59.6 Lymph % (Auto) 31.0 [place] % (Auto) 6.0 Eos % (Auto) 2.5 Baso % (Auto) 0.5 Absolute Neuts (auto) 3.4 Absolute Lymphs (auto) 1.75 Nucleated RBC % 0 Sodium 139 Potassium 3.7 Chloride 110 H Carbon Dioxide 24.0 Anion Gap 5 BUN 9 Creatinine 0.82 Estim Creat Clear Calc 80.33 Est GFR (MDRD) Af Amer 100 Est GFR (MDRD) Non-Af 83 BUN/Creatinine Ratio 11.0 Glucose 170 H Calcium 8.7 Total Bilirubin 0.50 Direct Bilirubin 0.21 AST 91 H ALT 99 H Alkaline Phosphatase 140 H Total Protein 7.6 Albumin 3.2 Globulin 4.4 H Lipase 263 Serum , Qual NEGATIVE Urine Color Urine Clarity Urine pH Ur Specific [place] Urine Protein Urine Glucose (UA) Urine Ketones Urine Occult Blood Urine Nitrite Urine Bilirubin Urine Urobilinogen Ur Leukocyte Esterase Urine RBC Urine WBC Ur Squamous Epith Cells Urine Bacteria Urine Mucus 11/08/19 15:50 WBC RBC Hgb Hct MCV MCH MCHC RDW Std Deviation RDW Coeff of [place] Plt Count MPV Immature Gran % (Auto) Neut % (Auto) Lymph % (Auto) [place] % (Auto) Eos % (Auto) Baso % (Auto) Absolute Neuts (auto) Absolute Lymphs (auto) Nucleated RBC % Sodium Potassium Chloride Carbon Dioxide Anion Gap BUN Creatinine Estim Creat Clear Calc Est GFR (MDRD) Af Amer Est GFR (MDRD) Non-Af BUN/Creatinine Ratio Glucose Calcium Total Bilirubin Direct Bilirubin AST ALT Alkaline Phosphatase Total Protein Albumin Globulin Lipase Serum , Qual Urine Color Yellow Urine Clarity Clear Urine pH 6.5 Ur Specific [place] 1.010 Urine Protein Negative Urine Glucose (UA) Normal Urine Ketones Negative Urine Occult Blood Negative Urine Nitrite Negative Urine Bilirubin Negative Urine Urobilinogen Normal Ur Leukocyte Esterase Negative Urine RBC 0 SEEN Urine WBC 0 SEEN Ur Squamous Epith Cells 5-10 SEEN Urine Bacteria 0 SEEN Urine Mucus 0 SEEN - Medical Decision Making Patient was given morphine, Zofran, and IV fluids. On repeat evaluation she reports still having some pain. She be given Toradol and Bentyl. Blood work is grossly unremarkable. She continues to have a mild transaminitis, but these numbers are improved when compared to 2 months ago. She does not have focal tenderness to this area and I do not suspect acute liver or gallbladder etiology. Patient did have a CT scan performed 2 months ago. I did review this and it showed no acute pathology. I do not think repeat imaging is needed at this time. She be treated with Zofran and Bentyl at home. She is given return instructions. ED Disposition - Plan for ED Patient: Disposition: Home or Assisted Living Diagnosis: Abdominal pain Instructions: ABDOMINAL PAIN, Unknown Cause, (Female) Prescriptions: Dicyclomine HCl [Bentyl] 20 mg PO TIDAC #20 capsule Ondansetron [Zofran Odt] 4 mg PO Q8H PRN PRN #10 tablet PRN Reason: Nausea Referrals: Verona Villarreal MD [Primary Care Provider] - 3-5 Days if not improving
[2019-11-08 15:42] VITALS: PULSE 86; RESP 17; O2SAT 100
[2019-11-08] MEDS: 0.9% Normal Saline 1,000 ML 150 ML IV (15:43)
[2019-11-08 15:50] LABS: Absolute Lymphocyte Count 1.75 X10^3/uL (0.83-4.51); Absolute Neutrophil Count 3.4 X10^3/uL (2.0-7.7); Basophil# 0.03 X10^3/uL; Basophil% 0.5 % (0-1); Eosinophil# 0.14 X10^3/uL; Eosinophils% 2.5 % (0-5); Hematocrit 40.9 % (37-47); Hemoglobin 12.6 g/dL (12.0-15.0); Lymphocyte # 1.75 X10^3/ul (4.0); Mean Corp Hgb Conc 30.8 g/dL (32-36); Mean Corpuscular Volume 84.5 fL (81-99); Mean Platelet Vol. 9.9 fl (6.2-12.0); Monocyte# 0.34 X10^3/uL; NRBC Flagged by Analyzer 0 % (0-5); Neutrophil # 3.36 X10^3/uL (2.7-7.7); Neutrophil % 59.6 % (47-70); Platelet Count 153 K/mm3 (150-450); RBC Distribution Width CV 16.9 % (11.6-14.6); RBC Distribution Width SD 51.8 fl (35.1-43.9); Red Blood Count 4.84 M/mm3 (4.2-5.4); White Blood Count 5.6 K/mm3 (4.4-11.0)
[2019-11-08] MEDS: Ondansetron 4 MG/2 ML Vial IV (15:53)
[2019-11-08] MEDS: Morphine 4 MG/ML Syringe IV (15:54)
[2019-11-08 16:04] LABS: Internal QC Validated? YES +Cl - CLEAR BKGD; Pregnancy, Serum, hCG Quali. NEGATIVE Negative
[2019-11-08 16:08] LABS: AST(SGOT) 91 U/L (15-37); Alanine Aminotransfer ALT/SGPT 99 U/L (13-56); Albumin, Serum 3.2 g/dL (3.2-5.0); Alkaline Phosphatase 140 U/L (45-117); Anion Gap 5 (5-15); BUN 9 mg/dL (7-18); Bilirubin, Direct 0.21 mg/dL (0.00-0.30); Calcium,Total 8.7 mg/dL (8.5-10.1); Chloride 110 mmol/L (98-107); Creatinine, Serum 0.82 mg/dL (0.55-1.02); EST Glomerular Filtration Rate 83 mL/min (>60); Est Glom Filt Rate - Afr Amer 100 mL/min (>60); Estimated Creatinine Clearance 80.33 ml/min; Globulin 4.4 g/dL (2.2-4.2); Glucose 170 mg/dL (74-106); Lipase 263 U/L (73-393); Potassium 3.7 mmol/L (3.5-5.1); Protein, Total 7.6 g/dL (6.4-8.2); Sodium Level 139 mmol/L (136-145)
[2019-11-08 16:11] LABS: Bacteria 0 SEEN /hpf (None Seen); Mucous, Urine 0 SEEN /hpf (<or=2+); Red Blood Cells-Urine 0 SEEN /hpf (0-5); White Blood Cells 0 SEEN /hpf (0-5)
[2019-11-08 16:15] LABS: Color, Urine Yellow (Yellow); Glucose, Dipstick Normal (Normal); Ketone-Dipstick Negative (Negative); Leukocyte Esterase-Dipstick Negative /ul (Negative); Nitrite-Dipstick Negative (Negative); Occult Blood-Urine Negative /ul (Negative); Protein-Dipstick Negative (Negative); Urine Bilirubin Dipstick Negative (Negative); Urine Clarity Clear (Clear); Urine Urobilinogen Normal (Normal); Urine pH 6.5 (5.0 - 8.0)
[2019-11-08 16:45] LABS: Squamous Epithelial Cells - UA 5-10 SEEN /hpf (5-10)
[2019-11-08] MEDS: Ketorolac 30 MG/ML Syringe IV (17:39)
[2019-11-08] MEDS: Dicyclomine 10 MG Capsule 20 MG PO (17:39)
== END 2019-11-08 18:30 | disposition home or self-care (01) ==
PROVIDERS: Emergency Provider Emergency Medicine; PCP Internal Medicine
DX: R10.84 Generalized abdominal pain (principal); E11.9 Type 2 diabetes mellitus without complications; J45.909 Unspecified asthma, uncomplicated; F31.9 Bipolar disorder, unspecified; F17.200 Nicotine dependence, unspecified, uncomplicated; Z88.8 Allergy status to other drugs, medicaments and biological substances; Z88.5 Allergy status to narcotic agent; Z88.0 Allergy status to penicillin; Z79.84 Long term (current) use of oral hypoglycemic drugs; Z79.899 Other long term (current) drug therapy
CPT/HCPCS: 80048; 80076; 81001; 83690; 84703; 85025; 96361; 96374; 96375; 99283; J7030; J2405

== ENCOUNTER 2020-03-28 18:19 | Emergency (ER) | payer MEDICAID, SELFPAY ==
[2020-03-28 18:21] VITALS: BP 143/97; PULSE 105; RESP 17; TEMP 36.7; O2SAT 97; BMI 64.1
--- NOTE | 2020-03-28 18:42 | ED.DCSUM_ITS ---
- ER Visit Summary Date of Service: 03/28/20 Chief Complaint: Left hip pain History of Present Illness: The patient is a [address] Villarreal. She reports that she has left hip pain that began 2 days ago. She denies any known injury. However, she reports that she might of fallen out of bed not known it. When asked what she means by this she reports that she is on trazodone and that it makes me out of it. She complains of a sharp pain is 10 of 10 at worst 9-10 currently. Is worsened by walking. Is relieved by Tylenol. She denies any numbness or weakness. She denies any other symptoms. No back pain. No fever, chills, or other constitutional symptoms. Physical Examination: Vitals: Stable. Afebrile. General: Well-nourished and well-developed. Head: Normocephalic atraumatic. Neck: Supple, no lymphadenopathy. No JVD. Nontender. Cardiovascular: Regular rate and rhythm. No murmurs. Respiratory: No respiratory distress. Clear to auscultation bilaterally. Abdominal: Soft, nontender, nondistended, normal bowel sounds. No guarding, rebound, or peritoneal signs. Back: Nontender. Extremities: Moderate tenderness palpation over the left greater trochanter. She has no pain with internal or external rotation of her leg. She is neuro vas intact distally, no edema. Skin: Normal color, no rash. Neurologic: Alert and oriented ?3. Cranial nerves II through XII are intact. Normal strength and sensation. Psych: Normal affect. Test Results: Left hip x-ray is negative. Emergency Department Course and Treatment: Patient was treated with naproxen. She is resting comfortably. Treatment Plan: Patient will be discharged with symptomatic care. Use Tylenol and/or ibuprofen for pain. Follow-up her primary care physician 1 week if not improving. Return to the emergency department for any worsening symptoms. Disposition: To home in improved and stable condition. Impression: 1. Left hip pain, acute. This note was generated with [email or web address] software. It may contain incorrect words, spelling, and punctuation that were not noted in review of the chart prior to signing ED Disposition - Plan for ED Patient: Instructions: ED Sprain Hip Referrals: Verona Villarreal MD [Primary Care Provider] - 1 Week if not improving
[2020-03-28] MEDS: Naproxen 500 MG Tablet PO (18:50)
--- NOTE | 2020-03-28 19:02 | RAD_ITS ---
STUDY: X-RAY - PELVIS AND LEFT HIP REASON FOR EXAM: Female, 39 years old. LEFT HIP PAIN NKI TECHNIQUE: 3 views of the pelvis and hip. COMPARISON: None. FINDINGS: There is a non-specific bowel gas pattern. Normal visualized soft tissue structures. Normal bilateral iliac wings, sacroiliac joints and visualized sacrum. Normal bilateral superior and inferior pubic rami. Normal pubic symphysis. Normal bilateral ischial tuberosities. Normal visualized femoral head. Normal acetabulum. Normal hip joint. RAD/HIP, UNI W/ Pelvis 2-3 Views IMPRESSION: Normal x-ray examination of the pelvis and hip. Electronically Signed: Nuno Jones MD ([place]) at 19:22 EDT , Service support ,
== END 2020-03-28 19:42 | disposition home or self-care (01) ==
LOC: ED 18:51
PROVIDERS: Emergency Provider Emergency Medicine; PCP Internal Medicine
DX: M25.552 Pain in left hip (principal); E11.9 Type 2 diabetes mellitus without complications; G43.909 Migraine, unspecified, not intractable, without status migrainosus; Z79.84 Long term (current) use of oral hypoglycemic drugs; Z79.899 Other long term (current) drug therapy
CPT/HCPCS: 73502; 99283

== ENCOUNTER 2020-04-21 12:44 | Emergency (ER) | payer MEDICAID, SELFPAY ==
[2020-04-21 12:45] VITALS: BP 149/83; PULSE 101; RESP 20; TEMP 37.3; O2SAT 97; BMI 64.9
--- NOTE | 2020-04-21 12:56 | EKG12_ITS ---
Test Reason : CP Blood Pressure : / mmHG Vent. Rate : 097 BPM Atrial Rate : 097 BPM P-R Int : 152 ms QRS Dur : 070 ms QT Int : 346 ms P-R-T Axes : 047 048 044 degrees QTc Int : 439 ms Normal sinus rhythm Low voltage QRS Borderline ECG Confirmed by ALONDRA CAST, NORMA ([id number]), dictionary editor BRIANNE YANG ([id number]) on 04/26/2020 9:27:39 AM Referred By: BING Confirmed By:SURAJ CANTU MD
--- NOTE | 2020-04-21 12:56 | RAD_ITS ---
STUDY: X-RAY CHEST REASON FOR EXAM: Female, 39 years old. PT WITH CHEST PAIN ACROSS CHEST INTERMITTENTLY FOR PAST WEEK. DESCRIBES IT A BURN AND ACHE. ACCOMPANIED WITH NAUSEA, HURTS TO TAKE BREATH WORSENS WITH MOVEMENT TECHNIQUE: Single AP portable view of the chest. COMPARISON: Comparison is made with prior study dated 02/03/2019. FINDINGS: EKG electrodes are seen. Hyperinflation. The lungs are clear. There is no demonstrated pleural abnormality. Normal size heart. Normal mediastinum and misael. Normal visualized pulmonary arteries. Normal visualized aortic arch and descending thoracic aorta. Normal visualized thoracic spine. Normal visualized ribs, clavicles, and shoulders. There is no demonstrated abnormality of the visualized soft tissue structures of the upper abdomen. RAD/Chest 1 View (Portable) IMPRESSION: Hyperinflation. The lungs are clear. Electronically Signed: Bernardo Barbosa, at 13:57 EDT , Service support ,
[2020-04-21 13:45] VITALS: BP 118/69; PULSE 89; RESP 16; O2SAT 99
[2020-04-21 13:45] LABS: Absolute Neutrophil Count 4.4 X10^3/uL (2.0-7.7); Basophil# 0.04 X10^3/uL; Basophil% 0.6 % (0-1); Eosinophil# 0.13 X10^3/uL; Eosinophils% 2.1 % (0-5); Hematocrit 37.4 % (37-47); Hemoglobin 11.3 g/dL (12.0-15.0); Lymphocyte % 20.9 % (19-41); Mean Corp Hgb Conc 30.2 g/dL (32-36); Mean Corpuscular Hgb 25.1 pg (27.0-32.0); Mean Corpuscular Volume 83.1 fL (81-99); Mean Platelet Vol. 10.6 fl (6.2-12.0); Monocyte# 0.33 X10^3/uL; Monocyte% 5.3 % (0-10); NRBC Flagged by Analyzer 0 % (0-5); Neutrophil # 4.38 X10^3/uL (2.7-7.7); Neutrophil % 70.5 % (47-70); Platelet Count 158 K/mm3 (150-450); RBC Distribution Width SD 54.1 fl (35.1-43.9); White Blood Count 6.2 K/mm3 (4.4-11.0)
[2020-04-21 14:01] LABS: Anion Gap 5 (5-15); BUN 9 mg/dL (7-18); Calcium,Total 8.4 mg/dL (8.5-10.1); Chloride 103 mmol/L (98-107); EST Glomerular Filtration Rate 74 mL/min (>60); Est Glom Filt Rate - Afr Amer 90 mL/min (>60); Estimated Creatinine Clearance 73.19 ml/min; Glucose 428 mg/dL (74-106); Sodium Level 134 mmol/L (136-145)
[2020-04-21 14:04] LABS: D-Dimer Quantitative (DVT/PE) 0.64 FEU/ug/m (0.27-0.49)
--- NOTE | 2020-04-21 14:06 | CT_ITS ---
STUDY: CTA CHEST REASON FOR EXAM: Female, 39 years old. PT STATED CHEST PAIN X 1 WEEK. HX OF DB, K.S., MYELODYSPLASIA -- -- 171.6KG RADIATION DOSAGE (If Supplied By Facility): CTDIvol = ( 26.35 ) mGy, DLP = ( 875.94 ) mGycm TECHNIQUE: The examination was performed with the intravenous administration of IV 100ML ISOVUE 370. Post-processing of the angiographic images was performed, with multiplanar reformation and 3D reconstruction. Individualized dose optimization techniques were used for this CT. COMPARISON: None. FINDINGS: Normal enhancement of the main pulmonary artery and right and left pulmonary arteries. Normal enhancement of the bilateral peripheral pulmonary arteries. There is no demonstrated pulmonary embolism. Normal thoracic aorta and visualized great vessels. There is no demonstrated aortic dissection. Normal heart and pericardium. Normal mediastinum. Normal hilar regions. Normal visualized trachea and bronchi. The lungs are well expanded. Normal pulmonary parenchyma. Normal pleura. Normal chest wall structures. Normal osseous structures. Normal visualized upper abdomen. CT/CTA Chest W/WO Contrast IMPRESSION: Normal CTA chest examination, without a demonstrated pulmonary embolism or arterial dissection. Electronically Signed: Bernardo Barbosa, at 15:00 EDT , Service support ,
[2020-04-21] MEDS: 0.9% Normal Saline 1,000 ML 150 ML IV (14:19)
[2020-04-21] MEDS: Ketorolac 30 MG/ML Syringe IV (14:19)
--- NOTE | 2020-04-21 14:25 | ED.DCSUM_ITS ---
- ER Visit Summary Date of Service: 04/21/20 Chief Complaint: [Chest pain] History of Present Illness: The patient is a 39 F [presents the emergency department complaint of chest pain that started a week ago. Patient states the pains been continuous kind of across her chest and describes it as sharp and st abbing and is worse with deep breath. Patient complains of some mild nausea associated with that. She denies recent travel or surgery. She denies any fever or cough. Patient was a smoker but quit years ago. She is a diabetic. Her mother had an [place] at the age of 57. No history of PE or DVT.] Physical Examination: [HEENT-PERRLA, EOMI. Cranial nerves II through XII grossl y intact. TMs clear. Mucous membranes moist. No adenopathy. Cardiovascular-regular rate and rhythm without murmur or ectopy Lungs-clear to auscultation, chest wall stable without crepitus or subcu emphysema. No tenderness on palpation of the chest wall. Abdomen-normoactive bowel sounds, soft, nontender, no rebound or rigidity, no peritoneal signs. Extremities-intact ?4, normal range of motion, normal pulses, atraumatic] Test Results: [EKG obtained arrival showed sinus rhythm with a ventricular rate of 97 bpm with no acute segment changes. CBC with differential was normal. Chemistries unremarkable. Troponin was less than 0.015. D-dimer was elevated 0.64.] Chest x-ray obtained was unremarkable. Patient has CT of the chest was negative for PE or dissection. Emergency Department Course and Treatment: [Patient given Toradol 30 mg IV and she had some pain relief with that.] Treatment Plan: [My suspicion for cardiac etiology is extremely low. Patient's had continuous pain for a week with normal EKG and heart enzymes. Pain is atypical. I suspect pleurisy or chest wall pain. Patient will be referred to primary care physician for follow-up in 5 to 7 days. She is given a prescription for few [place] for pain. She is to continue with naproxen as needed.] Disposition: [Discharged home in stable condition] Impression: [Chest [id number] uncertain] This note was generated with [employer] software. It may contain incorrect words, spelling, and punctuation that were not noted in review of the chart prior to signing ED Disposition - Plan for ED Patient: Referrals: Verona Villarreal MD [Primary Care Provider] -
[2020-04-21 14:37] VITALS: BP 115/79; PULSE 89; RESP 19; TEMP 37; O2SAT 96
[2020-04-21 14:38] VITALS: PULSE 87; RESP 18; O2SAT 96
--- NOTE | 2020-04-21 15:07 | ED.DEP ---
ED Disposition - Plan for ED Patient: Instructions: ED Chest Pain Atypical Unkn Cause Prescriptions: Hydrocodone Bitart/Apap 5-325 [[place] 5MG-325MG] 1 tab PO Q4H PRN PRN 2 Days #10 tab PRN Reason: Pain Prescription Printed Referrals: Verona Villarreal MD [Primary Care Provider] - 5-7 Days
== END 2020-04-21 15:24 | disposition home or self-care (01) ==
LOC: ED 13:11
PROVIDERS: Emergency Provider Emergency Medicine; PCP Internal Medicine
DX: R07.89 Other chest pain (principal); E11.9 Type 2 diabetes mellitus without complications; Z87.891 Personal history of nicotine dependence; Z82.49 Family history of ischemic heart disease and other diseases of the circulatory system; Z79.84 Long term (current) use of oral hypoglycemic drugs; Z79.1 Long term (current) use of non-steroidal anti-inflammatories (NSAID); Z79.899 Other long term (current) drug therapy
CPT/HCPCS: 71045; 71275; 80048; 84484; 85025; 85379; 93005; 96361; 96374; 99284; Q9967; A4216

== ENCOUNTER 2020-06-20 11:45 | Emergency (ER) | payer MEDICAID, SELFPAY ==
[2020-06-20 11:46] VITALS: BP 120/70; PULSE 106; RESP 16; TEMP 36.3; O2SAT 97; BMI 62.9
--- NOTE | 2020-06-20 12:03 | ED.DCSUM_ITS ---
History of Present Illness <LamontmadelineBhaskarkalen - Last Filed: 06/20/20 12:19> Informant: Patient Onset: Days Context: Gradual Onset Timing: Intermittent Narrative: 39-year-old female with past medical history of type 2 diabetes, GERD, kidney stones, umbilical hernia repair, morbid obesity presents with right-sided flank pain radiating to the RLQ. Pain came on suddenly 4 days ago and has been intermittent. Nothing makes it better or worse. Today it became more sharp and severe which brought her to the ED. She has had nausea, hematuria, and urinary frequency. Denies fevers, chills, vomiting, dysuria, cough, chest pain, or s hortness of breath. <Naomi Castro - Last Filed: 06/20/20 17:38> Chief Complaint: Abd Pain Past Medical History <LamontmadelineBhaskarkalen - Last Filed: 06/20/20 12:19> Past Medical History: - - type 2 diabetes, GERD, kidney stones, umbilical hernia repair, morbid obesity Surgical History: - - umbilical hernia repair Smoking Status: Former smoker - Family History Paternal Family History: Reports: Diabetes, Heart Disease Maternal Family History: Reports: No pertinent history <Naomi Castro - Last Filed: 06/20/20 17:38> - Allergies and Home Meds Allergies/Adverse Reactions: Allergies melatonin Allergy (Verified 06/20/20 11:45) Hives Penicillins Allergy (Verified 06/20/20 11:45) Hives tramadol Allergy (Verified 06/20/20 11:45) Hives Primary Care Physician: Verona Villarreal MD [Primary Care Provider] - Review of Systems General: Denies: Chills, Fever, Sweats Eyes: Denies: Visual changes - bilaterally, Diplopia ENT: Denies: Rhinorrhea, Sore throat Cardiovascular: Denies: Chest pain, Palpitations Respiratory: Denies: Dyspnea, Cough, Dyspnea on exertion Gastrointestinal: Reports: Abdominal pain. Denies: Nausea, Vomiting, Diarrhea, Melena, Hematochezia Genitourinary: Reports: Frequency. Denies: Dysuria Musculoskeletal: Denies: Back pain, Extremity Pain Skin: Denies: Rash, Wounds Neurological: Denies: Headache, Weakness, Numbness <Naomi Castro - Last Filed: 06/20/20 17:38> Physical Exam Vital Signs/Narrative: Vital Signs Temp Pulse Resp BP Pulse Ox 06/20/20 11:46 97.4 F L 106 H 16 120/70 97 <Caleb Montemayor - Last Filed: 06/20/20 12:19> Vital Signs/Narrative: Vital Signs Temp Pulse Resp BP Pulse Ox 06/20/20 11:46 97.4 F L 106 H 16 120/70 97 General: Well nourished, Well developed, No Acute Distress Head: Normocephalic, Atraumatic Eyes: Perrl, EOMI ENT: Moist mucous membranes, No rhinorrhea Neck: Supple, Nontender Cardiovascular: Regular rate, Regular rhythm, No murmurs Respiratory: No distress, CTA bilaterally, Chest nontender Abdomen: Soft, Nontender, Nondistended, Normal bowel sounds Back: Normal Inspection, CVA tenderness - right Extremities: Nontender, No edema Skin: Normal color, No rash Neurological: Alert, Oriented x3, Cranial nerves II-XII grossly intact Psychological: Normal affect, Normal Mood <Naomi Castro - Last Filed: 06/20/20 17:38> Diagnostic/Tx/Re-eval - Medical Decision Making Dr. Montemayor patient was seen with Naomi physician assistant maintenance manager agree with the physical exam as above, patient presents with right flank pain for 3 days some nausea no other complaints reports frequent urination history of kidney stones about 10 years ago, diabetes well controlled on exam very large woman, the abdomen is soft there is a vague pain to the right flank midline backs unremarkable no rebound guarding organomegaly, Given all the above ago ED evaluation with labs pain management CT see the reports for full details and disposition <Caleb Montemayor - Last Filed: 06/20/20 12:19> Clinical Impression(s) from Imaging Studies Abdomen/Pelvis CT 06/20/20 12:03 IMPRESSION: 1. No hydronephrosis or urinary tract calcifications. 2. Stable hepatosplenomegaly. Electronically Signed: Nuno Jones MD (Brooks) at 12:53 EDT , Service support , Laboratory Data 06/20/20 06/20/20 06/20/20 11:56 12:10 12:10 WBC 4.0 L RBC 4.50 Hgb 10.4 L Hct 36.8 L MCV 81.8 MCH 23.1 L MCHC 28.3 L RDW Std Deviation 57.1 H RDW Coeff of [place] 19.3 H Plt Count 106 L MPV 10.8 Immature Gran % (Auto) 0.300 Neut % (Auto) 65.7 Lymph % (Auto) 24.9 [place] % (Auto) 6.3 Eos % (Auto) 2.0 Baso % (Auto) 0.8 Absolute Neuts (auto) 2.6 Absolute Lymphs (auto) 0.99 Nucleated RBC % 0 Sodium 132 L Potassium 4.3 Chloride 100 Carbon Dioxide 25.0 Anion Gap 7 BUN 10 Creatinine 1.01 Estim Creat Clear Calc 65.22 Est GFR (MDRD) Af Amer 79 Est GFR (MDRD) Non-Af 65 BUN/Creatinine Ratio 9.9 L Glucose 676 H* Calcium 8.9 Urine Color Yellow Urine Clarity Clear Urine pH 6.0 Ur Specific [place] 1.010 Urine Protein Negative Urine Glucose (UA) 1000 H Urine Ketones Negative Urine Occult Blood Negative Urine Nitrite Negative Urine Bilirubin Negative Urine Urobilinogen Normal Ur Leukocyte Esterase 25 H Urine RBC 0 SEEN Urine WBC 0 SEEN Ur Squamous Epith Cells 5-10 SEEN Urine Bacteria 0 SEEN Urine Mucus 0 SEEN Urine Test Negative - Medical Decision Making Patient presented with right flank pain and nausea. She appears well and nontoxic. She is sitting in bed comfortably. Vital signs within normal limits. She has some right CVA tenderness on exam, benign abdominal exam although she does have an obese abdomen. Labs show no leukocytosis and is only remarkable for glucose of 676. CT was negative for acute process to explain her symptoms. Patient states she has been taking her home oral diabetic meds and usually is in the 100s. She was given 2 L IV fluids and 20 units of IV insulin here and sugars are trending down to the low 500s. She has no anion gap or ketones to suggest DKA. No infectious process of the urine or leukocytosis so I have low concern for pyelonephritis. Serial abdominal exams are negative. At this time she is stable for outpatient follow-up and was told to take her diabetic medications when she gets home. Follow-up with PCP tomorrow. She was told to tell PCP urine culture was sent to monitor for. She was agreeable with this plan and discharged home in stable condition. <Naomi Castro - Last Filed: 06/20/20 17:38> ED Disposition <AkinmarvaCaleb - Last Filed: 06/20/20 12:19> <Naomi Castro - Last Filed: 06/20/20 17:38> - Plan for ED Patient: Disposition: Home or Assisted Living Diagnosis: Hyperglycemia due to type 2 diabetes mellitus, Abdominal pain of unknown etiology Instructions: ED Abdominal Pain Unkn Cause Fem Prescriptions: Naproxen [Naprosyn] 500 mg PO BID #14 tab Transmission Status: Received by [facility] #30 Hydrocodone Bitart/Apap 5-325 [[place] 5MG-325MG] 1 tab PO Q6H PRN PRN 1 Days #4 tab PRN Reason: Pain Transmission Status: Received by [facility]30 Referrals: Verona Villarreal MD [Primary Care Provider] -
--- NOTE | 2020-06-20 12:03 | CT_ITS ---
STUDY: CT ABDOMEN AND PELVIS WITHOUT CONTRAST REASON FOR EXAM: Female, 39 years old. RLQ PAIN RADIATES INTO RIGHT FLANK -- HX-KIDNEY STONES RADIATION DOSAGE (If Supplied By Facility): CTDIvol = ( 34.41 ) mGy, DLP = ( 1753.88 ) mGycm TECHNIQUE: Transaxial images were obtained from the dome of the diaphragm to the symphysis pubis without oral contrast, and without intravenous contrast. Sagittal and coronal images were reconstructed. Individualized dose optimization techniques were used for this CT. COMPARISON: 08/30/2019 FINDINGS: The visualized lung bases are unremarkable. The visualized portions of the heart are within normal limits. Liver and spleen remain enlarged. Diminished density throughout the liver compatible hepatic steatosis. Normal gallbladder and extrahepatic biliary system. Normal spleen. Normal pancreas. Normal bilateral adrenal glands. No hydronephrosis. No urinary tract calcifications. Normal visualized stomach. Normal small intestine. Normal colon. The appendix is visualized and appears normal. Normal abdominal aorta. Normal inferior vena cava. Normal retroperitoneum. Normal urinary bladder. Normal visualized uterus. Normal abdominal wall. Normal osseous structures. CT/Abdomen/Pelvis without Cont IMPRESSION: 1. No hydronephrosis or urinary tract calcifications. 2. Stable hepatosplenomegaly. Electronically Signed: Nuno Jones MD (Brooks) at 12:53 EDT , Service support ,
[2020-06-20 12:16] LABS: Absolute Lymphocyte Count 0.99 X10^3/uL (0.83-4.51); Absolute Neutrophil Count 2.6 X10^3/uL (2.0-7.7); Basophil# 0.03 X10^3/uL; Basophil% 0.8 % (0-1); Eosinophil# 0.08 X10^3/uL; Hematocrit 36.8 % (37-47); Hemoglobin 10.4 g/dL (12.0-15.0); Lymphocyte # 0.99 X10^3/ul (4.0); Lymphocyte % 24.9 % (19-41); Mean Corp Hgb Conc 28.3 g/dL (32-36); Mean Corpuscular Hgb 23.1 pg (27.0-32.0); Mean Corpuscular Volume 81.8 fL (81-99); Mean Platelet Vol. 10.8 fl (6.2-12.0); Monocyte# 0.25 X10^3/uL; Monocyte% 6.3 % (0-10); NRBC Flagged by Analyzer 0 % (0-5); Neutrophil # 2.61 X10^3/uL (2.7-7.7); Neutrophil % 65.7 % (47-70); Platelet Count 106 K/mm3 (150-450); RBC Distribution Width CV 19.3 % (11.6-14.6); RBC Distribution Width SD 57.1 fl (35.1-43.9)
[2020-06-20] MEDS: 0.9% Normal Saline 1,000 ML 250 ML IV (12:16)
[2020-06-20] MEDS: Ondansetron 4 MG/2 ML Vial IV (12:16)
[2020-06-20] MEDS: Ketorolac 30 MG/ML Syringe IV (12:17)
[2020-06-20] MEDS: Morphine 4 MG/ML Syringe IV (12:19)
[2020-06-20 12:20] LABS: Bacteria 0 SEEN /hpf (None Seen); Mucous, Urine 0 SEEN /hpf (<or=2+); Red Blood Cells-Urine 0 SEEN /hpf (0-5); White Blood Cells 0 SEEN /hpf (0-5)
[2020-06-20 12:23] LABS: Color, Urine Yellow (Yellow); Glucose, Dipstick 1000 mg/dl (Normal); Ketone-Dipstick Negative (Negative); Leukocyte Esterase-Dipstick 25 /ul (Negative); Nitrite-Dipstick Negative (Negative); Occult Blood-Urine Negative /ul (Negative); Protein-Dipstick Negative (Negative); Urine Bilirubin Dipstick Negative (Negative); Urine Clarity Clear (Clear); Urine Urobilinogen Normal (Normal)
[2020-06-20 12:30] LABS: Internal QC Validated? YES +Cl - CLEAR BKGD; Pregnancy, Urine Negative Negative; Squamous Epithelial Cells - UA 5-10 SEEN /hpf (5-10)
[2020-06-20 12:32] LABS: Anion Gap 7 (5-15); BUN 10 mg/dL (7-18); BUN/Creat Ratio 9.9 RATIO (10-20); Calcium,Total 8.9 mg/dL (8.5-10.1); Chloride 100 mmol/L (98-107); Creatinine, Serum 1.01 mg/dL (0.55-1.02); EST Glomerular Filtration Rate 65 mL/min (>60); Est Glom Filt Rate - Afr Amer 79 mL/min (>60); Estimated Creatinine Clearance 65.22 ml/min; Glucose 676 mg/dL (74-106); Potassium 4.3 mmol/L (3.5-5.1); Sodium Level 132 mmol/L (136-145)
[2020-06-20] MEDS: Insulin Lispro 10 UNIT in Syringe 0 ML 3 UNIT IV (12:58)
[2020-06-20] MEDS: 0.9% Normal Saline 1,000 ML 999 ML IV ×2 (12:59→14:30)
[2020-06-20 14:09] VITALS: RESP 18
[2020-06-20 14:11] LABS: Bedside Glucose > 500 mg/dL (70-110)
[2020-06-20] MEDS: Insulin Lispro 10 UNIT in Syringe 0 ML 6 UNIT IV (14:31)
[2020-06-20 15:36] LABS: Bedside Glucose > 500 mg/dL (70-110)
[2020-06-20 15:37] VITALS: PULSE 98; RESP 16; O2SAT 95
== END 2020-06-20 15:38 | disposition home or self-care (01) ==
PROVIDERS: Emergency Provider Physician Assistant; PCP Internal Medicine
DX: R10.31 Right lower quadrant pain (principal); E11.65 Type 2 diabetes mellitus with hyperglycemia; R31.9 Hematuria, unspecified; R35.0 Frequency of micturition; R11.0 Nausea; K21.9 Gastro-esophageal reflux disease without esophagitis; E66.01 Morbid (severe) obesity due to excess calories; Z79.84 Long term (current) use of oral hypoglycemic drugs; Z79.899 Other long term (current) drug therapy; Z87.442 Personal history of urinary calculi; Z87.891 Personal history of nicotine dependence
CPT/HCPCS: 74176; 80048; 81001; 81025; 82962; 85025; 87086; 87088; 96361; 96374; 96375; 99284; J7030; A4216; J2405

== ENCOUNTER 2020-06-21 22:07 | Emergency (ER) | payer MEDICAID, SELFPAY ==
[2020-06-20 11:46] VITALS: BMI 62.9
[2020-06-21 22:08] VITALS: BP 146/94; PULSE 117; RESP 18; TEMP 37.3; O2SAT 96; BMI 63.8
--- NOTE | 2020-06-21 22:28 | RAD_ITS ---
STUDY: X-RAY CHEST REASON FOR EXAM: Female, 39 years old. FEVER -- BLOOD SUGAR IN 500''S -- CHRONIC SOB -- HX OF ASTHMA AND COPD TECHNIQUE: Single AP portable view of the chest. COMPARISON: 04/21/2020. FINDINGS: There are no confluent pulmonary infiltrates. There is no demonstrated pleural abnormality. Normal size heart. Normal mediastinum and misael. Normal visualized aortic arch and descending thoracic aorta. There are no demonstrated acute fractures or destructive bone lesions. There is no demonstrated abnormality of the visualized soft tissue structures of the upper abdomen. RAD/Chest 1 View (Portable) IMPRESSION: Normal x-ray examination of the chest. Electronically Signed: Lux Martinez MD at 0:25 EDT , Service support ,
--- NOTE | 2020-06-21 22:31 | ED.DCSUM_ITS ---
- ER Visit Summary Date of Service: 06/21/20 Chief Complaint: Hyperglycemia History of Present Illness: The patient is a 39 F presenting with hyperglycemia. Patient states that she had high blood sugars yesterday was seen in the ER at that time. She states she was sent home when her sugar started declining. She continues to have elevated blood sugars today. She also noted a temperature up to 101 today. She denies other complaints. She has chronic shortness of breath secondary to COPD. She states this is no worse than usual. She denies cough. Denies myalgias. Denies nausea, vomiting, diarrhea. She was having right flank pain yesterday when she was in the ED but she states this has resolved. Denies dysuria. Complains of urinary frequency. She has a diffuse rash of her extremities and trunk which has been persistent for the past several weeks, she states rash is improving from previous. Denies other complaints. Physical Examination: Vitals are stable. Temperature 99.1. Alert no acute distress. HEENT exam is unremarkable. Neck is supple. No meningismus Lungs are clear and equal bilaterally. Heart is regular and tachycardic Abdomen is soft nontender nondistended. Extremities are unremarkable. Skin is warm and dry. Diffuse maculopapular rash No focal neurologic deficit. Remainder of exam is unremarkable. Emergency Department Course and Treatment: Patient was given IV fluids, Tylenol. CBC normal except hemoglobin 11.0, platelet 124. Chemistries normal except for glucose 385. Anion gap is normal. Acetone negative. Alk phos 134, AST 76, at her baseline. Urinalysis shows 10-25 white blood cells, 0-5 epithelial cells. hCG negative. Urine culture was sent. COVID test was sent and is pending. She was given Bactrim. She was given insulin subcutaneously. Chest x-ray shows no acute process. Repeat BGT is 343. Patient is resting comfortably on reevaluation. She is advised to follow-up with her primary care physician. She is advised return to ED for worsening complaints. Disposition: Discharge home Impression: Hyperglycemia, UTI This note was generated with [employer] dictation software. It may contain incorrect words, spelling, and punctuation that were not noted in review of the chart prior to signing ED Disposition - Plan for ED Patient: Instructions: Understanding Urinary Tract Infections (UTIs), ED Diabetic Hyperglycemia Prescriptions: Smz/Tmp Ds [Bactrim Ds] 1 tab PO BID #14 tab Prescription Printed Referrals: Verona Villarreal MD [Primary Care Provider] -
[2020-06-21] MEDS: Acetaminophen 500 MG Tablet 1000 MG PO (22:47)
[2020-06-21] MEDS: 0.9% Normal Saline 1,000 ML 1000 ML IV (23:05)
[2020-06-21 23:15] LABS: Absolute Lymphocyte Count 1.28 X10^3/uL (0.83-4.51); Absolute Neutrophil Count 3.5 X10^3/uL (2.0-7.7); Basophil# 0.03 X10^3/uL; Basophil% 0.6 % (0-1); Eosinophil# 0.12 X10^3/uL; Eosinophils% 2.3 % (0-5); Hematocrit 37.5 % (37-47); Lymphocyte # 1.28 X10^3/ul (4.0); Lymphocyte % 24.7 % (19-41); Mean Corp Hgb Conc 29.3 g/dL (32-36); Mean Corpuscular Hgb 23.7 pg (27.0-32.0); Mean Corpuscular Volume 80.6 fL (81-99); Mean Platelet Vol. 10.4 fl (6.2-12.0); Monocyte# 0.28 X10^3/uL; Monocyte% 5.4 % (0-10); NRBC Flagged by Analyzer 0 % (0-5); Neutrophil # 3.46 X10^3/uL (2.7-7.7); Neutrophil % 66.6 % (47-70); Platelet Count 124 K/mm3 (150-450); RBC Distribution Width CV 19.4 % (11.6-14.6); RBC Distribution Width SD 55.8 fl (35.1-43.9); Red Blood Count 4.65 M/mm3 (4.2-5.4); White Blood Count 5.2 K/mm3 (4.4-11.0)
[2020-06-21 23:27] LABS: Bacteria 0 SEEN /hpf (None Seen); Color, Urine Yellow (Yellow); Glucose, Dipstick 1000 mg/dl (Normal); Ketone-Dipstick Negative (Negative); Leukocyte Esterase-Dipstick 500 /ul (Negative); Mucous, Urine 0 SEEN /hpf (<or=2+); Nitrite-Dipstick Negative (Negative); Occult Blood-Urine 10 /ul (Negative); Protein-Dipstick Negative (Negative); Urine Bilirubin Dipstick Negative (Negative); Urine Clarity Clear (Clear); Urine Urobilinogen 1 mg/dl (Normal)
[2020-06-21 23:30] LABS: Internal QC Validated? YES +Cl - CLEAR BKGD; Pregnancy, Urine Negative Negative
[2020-06-21 23:33] LABS: Amorphous Sediment 1+; Red Blood Cells-Urine 0-5 SEEN /hpf (0-5); Squamous Epithelial Cells - UA 0-5 SEEN /hpf (5-10); White Blood Cells 10-25 SEEN /hpf (0-5)
[2020-06-21 23:37] LABS: ALB/GLOB Ratio 0.7 RATIO (0.9-2.4); AST(SGOT) 76 U/L (15-37); Alanine Aminotransfer ALT/SGPT 54 U/L (13-56); Albumin, Serum 3.3 g/dL (3.2-5.0); Alkaline Phosphatase 134 U/L (45-117); Anion Gap 5 (5-15); BUN 10 mg/dL (7-18); BUN/Creat Ratio 11.3 RATIO (10-20); Chloride 102 mmol/L (98-107); Creatinine, Serum 0.88 mg/dL (0.55-1.02); EST Glomerular Filtration Rate 76 mL/min (>60); Est Glom Filt Rate - Afr Amer 92 mL/min (>60); Estimated Creatinine Clearance 74.85 ml/min; Globulin 4.8 g/dL (2.2-4.2); Glucose 385 mg/dL (74-106); Potassium 4.4 mmol/L (3.5-5.1); Protein, Total 8.1 g/dL (6.4-8.2); Sodium Level 134 mmol/L (136-145)
[2020-06-22] MEDS: Smz/Tmp Ds Tablet 1 TABLET PO (00:06)
[2020-06-22] MEDS: Insulin Lispro 100 UNIT/ML INSULN.PEN 10 UNIT SC ×2 (00:06→01:00)
[2020-06-22] MEDS: 0.9% Normal Saline 1,000 ML 999 ML IV (00:06)
[2020-06-22 00:10] VITALS: RESP 16
[2020-06-22 01:36] LABS: Bedside Glucose 379 mg/dL (70-110)
[2020-06-22 01:36] LABS: Bedside Glucose 343 mg/dL (70-110)
--- NOTE | 2020-06-22 01:36 | ED.DEP ---
ED Disposition - Plan for ED Patient: Instructions: ED Diabetic Hyperglycemia, Understanding Urinary Tract Infections (UTIs) Prescriptions: Smz/Tmp Ds [Bactrim Ds] 1 tab PO BID #14 tab Prescription Printed Referrals: Verona Villarreal MD [Primary Care Provider] -
[2020-06-22 01:43] VITALS: BP 142/80; PULSE 82; RESP 16; O2SAT 98
== END 2020-06-22 01:44 | disposition home or self-care (01) ==
LOC: ED 23:03
PROVIDERS: Emergency Provider Emergency Medicine; PCP Internal Medicine
DX: E11.65 Type 2 diabetes mellitus with hyperglycemia (principal); N39.0 Urinary tract infection, site not specified; J44.9 Chronic obstructive pulmonary disease, unspecified; R21 Rash and other nonspecific skin eruption; K21.9 Gastro-esophageal reflux disease without esophagitis; F41.9 Anxiety disorder, unspecified; Z79.84 Long term (current) use of oral hypoglycemic drugs; Z79.899 Other long term (current) drug therapy
CPT/HCPCS: 71045; 80053; 81001; 81025; 82009; 82962; 85025; 87086; 87088; 87635; 96360; 96361; 99284; J7030; A4216; U0003

== ENCOUNTER 2020-07-07 13:02 | Emergency (ER) | payer MEDICAID, SELFPAY ==
[2020-07-07 13:02] VITALS: BP 159/95; PULSE 108; RESP 16; TEMP 36.3; O2SAT 98; BMI 61.4
--- NOTE | 2020-07-07 14:12 | ED.VIS.GEN ---
History of Present Illness Chief Complaint: Dental Informant: Patient Onset: Yesterday Narrative: [place] presents with right upper first molar tenderness that started last night. She is a diabetic her sugars in the 300s, this is somewhat normal for her in fact a few weeks ago was running in the 500Sand 600s. She has no fever chills no difficulty swallowing no chest pain or shortness of breath. Past Medical History - Allergies and Home Meds Allergies/Adverse Reactions: Allergies melatonin Allergy (Verified 07/07/20 13:04) Hives Penicillins Allergy (Verified 07/07/20 13:04) Hives tramadol Allergy (Verified 07/07/20 13:04) Hives Primary Care Physician: Verona Villarreal MD [Primary Care Provider] - Past Medical History: - - Asthma, diabetes Surgical History: - - umbilical hernia repair Smoking Status: Former smoker - Family History Paternal Family History: Reports: Diabetes, Heart Disease Maternal Family History: Reports: No pertinent history Review of Systems General: Denies: Fever ENT: Reports: - - Dental pain as in HPI Respiratory: Denies: Dyspnea, Cough Gastrointestinal: Denies: Abdominal pain, Nausea, Vomiting Skin: Denies: Rash Neurological: Denies: Headache, Weakness Endocrine: Denies: Polyuria, Polydipsia Physical Exam Vital Signs/Narrative: Vital Signs Temp Pulse Resp BP Pulse Ox 07/07/20 13:02 97.3 F L 108 H 16 159/95 H 98 General: Obese, - - She appears relatively comfortable. Head: Normocephalic, Atraumatic ENT: - - There is tenderness over the first right upper molar, no palpable abscess. Some facial swelling associated with this. Normal soft palate. Cardiovascular: Regular rate, Regular rhythm Respiratory: No distress, CTA bilaterally Skin: Normal color, No rash Neurological: Normal Strength, Normal Sensation Diagnostic/Tx/Re-eval - Medical Decision Making Patient will be treated with antibiotics. I had a long discussion with her about blood sugar she tells me she is going to try to monitor him more carefully and follow-up with her physician. At this time I do not believe labs are needed, she has a chronically elevated blood sugar, she has no signs or symptoms of DKA and she appears well. ED Disposition - Plan for ED Patient: Disposition: Home or Assisted Living Diagnosis: Pain, dental Instructions: Dental Abscess Prescriptions: Clindamycin [Cleocin] 300 mg PO TID #60 cap Transmission Status: Pending to [facility] #30 Hydrocodone Bitart/Apap 5-325 [[place] 5MG-325MG] 1 tablet PO Q4H PRN PRN 2 Days #7 tablet PRN Reason: Pain Transmission Status: Sent to [facility] #30 Referrals: Verona Villarreal MD [Primary Care Provider] - 3-5 Days
== END 2020-07-07 14:27 | disposition home or self-care (01) ==
PROVIDERS: Emergency Provider Emergency Medicine; PCP Internal Medicine
DX: K08.89 Other specified disorders of teeth and supporting structures (principal); E11.65 Type 2 diabetes mellitus with hyperglycemia; J45.909 Unspecified asthma, uncomplicated; E66.9 Obesity, unspecified; Z79.84 Long term (current) use of oral hypoglycemic drugs; Z79.1 Long term (current) use of non-steroidal anti-inflammatories (NSAID); Z79.899 Other long term (current) drug therapy; Z87.891 Personal history of nicotine dependence
CPT/HCPCS: 99282

== ENCOUNTER 2020-11-28 18:24 | Emergency (ER) | payer MEDICAID, SELFPAY ==
[2020-11-28 18:26] VITALS: BP 159/90; PULSE 116; RESP 15; TEMP 36.3; O2SAT 96; BMI 61.2
[2020-11-28 19:28] LABS: Mucous, Urine 0 SEEN /hpf (<or=2+)
--- NOTE | 2020-11-28 19:34 | RAD_ITS ---
INDICATION: pain EXAMINATION/TECHNIQUE: X-RAY - RIGHT XR Hip Unilateral with Pelvis when performed; 2-3 Views COMPARISON: None. FINDINGS: No acute fracture or malalignment. No blastic or lytic lesions. No degenerative changes are seen. The soft tissues are unremarkable. RAD/HIP, UNI W/ Pelvis 2-3 Views IMPRESSION: No acute radiographic abnormalities. Electronically Signed: Go Marie MD at 20:10 EDT Tel , Service support ,
[2020-11-28 19:35] LABS: Color, Urine Yellow (Yellow); Glucose, Dipstick 1000 mg/dl (Normal); Ketone-Dipstick Negative (Negative); Leukocyte Esterase-Dipstick 100 /ul (Negative); Nitrite-Dipstick Negative (Negative); Occult Blood-Urine 50 /ul (Negative); Protein-Dipstick Negative (Negative); Urine Bilirubin Dipstick Negative (Negative); Urine Clarity Cloudy (Clear); Urine Urobilinogen Normal (Normal)
--- NOTE | 2020-11-28 19:46 | ED.VIS.GEN ---
History of Present Illness Chief Complaint: Dental Informant: Patient Onset: Days Context: Gradual Onset Current Severity: Mild Maximum Severity: Mild Narrative: Patient presents with multiple complaints. She is complaining of right upper dental pain has been ongoing for the past couple of days. She think she is a dental abscess. She is also complaining of vaginal itching and discharge and is not sure if she is a bladder or a yeast infection. The symptoms been ongoing for the past 3 days. She also complains of right hip pain has been ongoing for years. She states it feels like there is bone grinding on bone. No recent fall or injury. - Past Medical History (1) Asthma Status: Chronic (2) Bipolar 1 disorder Status: Chronic (3) Diabetes Status: Chronic Past Medical History - Allergies and Home Meds Allergies/Adverse Reactions: Allergies melatonin Allergy (Verified 11/28/20 18:28) Hives Penicillins Allergy (Verified 11/28/20 18:28) Hives tramadol Allergy (Verified 11/28/20 18:28) Hives Primary Care Physician: Verona Villarreal MD [Primary Care Provider] - Prior records reviewed: Yes Surgical History: - - umbilical hernia repair Smoking Status: Former smoker - Family History Paternal Family History: Reports: Diabetes, Heart Disease Maternal Family History: Reports: No pertinent history Review of Systems General: Denies: Chills, Fever Eyes: Denies: Visual changes - bilaterally ENT: Reports: - - Right upper dental pain. Denies: Bilateral ear pain Cardiovascular: Denies: Chest pain Respiratory: Denies: Dyspnea, Cough Gastrointestinal: Denies: Abdominal pain, Nausea, Vomiting Genitourinary: Denies: Dysuria Musculoskeletal: Reports: Extremity Pain Skin: Denies: Rash, Wounds Neurological: Denies: Headache Hematologic: Denies: Easy bruising, Easy bleeding Allergy: Denies: Uticaria Physical Exam Vital Signs/Narrative: Vital Signs Temp Pulse Resp BP Pulse Ox 11/28/20 18:26 97.3 F L 116 H 15 159/90 H 96 Inital Vital Signs reviewed: Yes General: Well nourished, Well developed Head: Normocephalic ENT: Moist mucous membranes, TM's clear, - - Tenderness palpation right mandibular first molar. No significant surrounding gum edema. Posterior pharynx exam is normal. Neck: Supple Cardiovascular: Regular rate, Regular rhythm Respiratory: No distress, CTA bilaterally Abdomen: Soft, Nontender, Normal bowel sounds : - - External genitalia erythematous and irritated. Scant white discharge. No tenderness or masses appreciated. Extremities: - - Reproducible tenderness over the greater trochanter of the right hip. Full range of motion at the joint without difficulty. Skin: Normal color Neurological: Alert, Oriented x3 Psychological: Normal affect Diagnostic/Tx/Re-eval 11/28/20 19:34 HIP, UNI W/ Pelvis 2-3 Views [RAD] Stat Laboratory Results 11/28/20 19:20 Urine Color Yellow Urine Clarity Cloudy Urine pH 6.0 Ur Specific [place] 1.020 Urine Protein Negative Urine Glucose (UA) 1000 H Urine Ketones Negative Urine Occult Blood 50 H Urine Nitrite Negative Urine Bilirubin Negative Urine Urobilinogen Normal Ur Leukocyte Esterase 100 H Urine RBC 0-5 SEEN Urine WBC 10-25 SEEN Ur Squamous Epith Cells 5-10 SEEN Urine Bacteria RARE Urine Mucus 0 SEEN - Medical Decision Making Pelvis and right hip x-ray per my interpretation was no acute bony finding. Urinalysis appears contaminated. Very rare bacteria noted. I do not believe this represents acute cystitis. Patient does have significantly elevated glucose in her urine. She does state that her blood sugars have been running a little high at home. She was advised that she needs to keep these under control as this could be causing a lot of her urinary symptoms. Patient be treated with a dose of Diflucan as well as topical yeast cream. She will be given clindamycin for her dental infection and treated with Naprosyn for pain. ED Disposition - Plan for ED Patient: Disposition: Home or Assisted Living Diagnosis: Yeast infection, Pain, dental, Sprain of right hip Instructions: ED Hip Strain, ED Dental Pain, Vaginal Infection: Yeast (Candidiasis) Prescriptions: Miconazole Nitrate [Jorge Antifungal] 142 gm TP BID #1 tube Transmission Status: Pending to [facility] Clindamycin [Cleocin] 300 mg PO 4X/DAY #80 cap Transmission Status: Pending to [facility] Naproxen [Naprosyn] 500 mg PO BID PRN PRN #20 tab PRN Reason: Pain Score 4-10 Transmission Status: Pending to [facility] Referrals: Verona Villarreal MD [Primary Care Provider] - 1 Week
[2020-11-28 19:47] LABS: Bacteria RARE /hpf (None Seen); Red Blood Cells-Urine 0-5 SEEN /hpf (0-5); Squamous Epithelial Cells - UA 5-10 SEEN /hpf (5-10); White Blood Cells 10-25 SEEN /hpf (0-5)
[2020-11-28] MEDS: Fluconazole 100 MG Tablet 200 MG PO (20:23)
[2020-11-28] MEDS: Naproxen 500 MG Tablet PO (20:23)
[2020-11-28] MEDS: Clindamycin HCl 150 MG Capsule 300 MG PO (20:23)
== END 2020-11-28 20:25 | disposition home or self-care (01) ==
PROVIDERS: Emergency Provider Emergency Medicine; PCP Internal Medicine
DX: K04.7 Periapical abscess without sinus (principal); B37.9 Candidiasis, unspecified; S73.101A Unspecified sprain of right hip, initial encounter; X58.XXXA Exposure to other specified factors, initial encounter; Y93.9 Activity, unspecified; Y92.9 Unspecified place or not applicable; Y99.9 Unspecified external cause status; E11.65 Type 2 diabetes mellitus with hyperglycemia; J45.909 Unspecified asthma, uncomplicated; F31.9 Bipolar disorder, unspecified; Z79.84 Long term (current) use of oral hypoglycemic drugs; Z79.899 Other long term (current) drug therapy; Z87.891 Personal history of nicotine dependence
CPT/HCPCS: 73502; 81001; 99283

== ENCOUNTER 2020-12-30 15:39 | Emergency (ER) | payer MEDICAID, SELFPAY ==
[2020-12-30 15:40] VITALS: BP 160/95; PULSE 116; RESP 14; TEMP 36.7; O2SAT 97; BMI 58.6
--- NOTE | 2020-12-30 15:51 | CT_ITS ---
STUDY: CT ABDOMEN AND PELVIS WITHOUT CONTRAST REASON FOR EXAM: Female, 40 years old. Pain RADIATION DOSAGE (If Supplied By Facility): CTDIvol = ( 34.45 ) mGy, DLP = ( 1816.22 ) mGycm TECHNIQUE: Transaxial images were obtained from the dome of the diaphragm to the symphysis pubis without oral contrast, and without intravenous contrast. Sagittal and coronal images were reconstructed. Individualized dose optimization techniques were used for this CT. COMPARISON: Prior abdomen and pelvic CT exam of 06/20/2020 FINDINGS: The visualized lung bases are unremarkable. The visualized portions of the heart are within normal limits. Stable hepatomegaly. The umbilical vein is prominent, probably recanalized. Normal gallbladder and extrahepatic biliary system. Splenomegaly with a coronal length of 20 cm not substantially changed from prior exam. Normal pancreas. Normal bilateral adrenal glands. Normal right kidney. Normal left kidney. Normal visualized stomach. Normal small intestine. Normal colon. There is non-visualization of the appendix. Normal abdominal aorta. Normal inferior vena cava. Normal retroperitoneum. Normal urinary bladder. Negative for pelvic mass, ascites or free fluid. Chronic stranding in the fatty tissues of the overhanging panniculus. Normal osseous structures. CT/Abdomen/Pelvis without Cont IMPRESSION: No acute bowel related findings. Negative for obstruction, perforation or inflammatory bowel changes. The appendix is not identified. There is no inflammation in the expected location of the appendix. Stable hepatosplenomegaly. Prominence of the umbilical vein which suggests portal hypertension. Unremarkable gallbladder and pancreas. Normal size of the kidneys bilaterally without hydronephrosis, renal or ureteral stones. Both kidneys are displaced inferiorly secondary to hepatosplenomegaly. Unremarkable urinary bladder. Negative for pelvic mass or free fluid of the pelvis. Negative for ascites. Electronically Signed: Alicia Floyd MD at 17:33 EDT , Service support ,
--- NOTE | 2020-12-30 15:51 | ED.VISSUMM ---
- ER Visit Summary Date of Service: 12/30/20 Chief Complaint: [Abdominal pain] History of Present Illness: The patient is a 40 F [present to the emergency department with complaint of abdominal pain that started a week ago. Patient states the pain initially was intermittent. Patient states that over the last 2 days its been continuous in its diffuse involving the entire abdomen. She denies fever or vomiting. She denies diarrhea. Her last bowel movement was about an hour ago and was normal. She denies any blood in her stool or black tarry stool. She denies urinary symptoms. She does not think she is . She denies abnormal vaginal discharge or bleeding. Patient has never had pain like this before. She rates it a 9 out of 10 describes it as achy and sharp at times. Food seems to make it worse. Patient has history of diabetes, asthma, and bipolar disorder. Only prior surgical history includes an umbilical hernia repair in 2017.] Physical Examination: [HEENT-PERRLA, EOMI. Cranial nerves II through XII grossly intact. TMs clear. Mucous membranes moist. No adenopathy. Cardiovascular-regular rate and rhythm without murmur or ectopy Lungs-clear to auscultation, chest wall stable without crepitus or subcu emphysema Abdomen-normoactive bowel sounds, soft Extremities-intact ?4, normal range of motion, normal pulses, atraumatic] Test Results: [CBC with differential obtained showed a white count of 4.4, hemoglobin 11.7, hematocrit 39.5, platelets 104. Chemistries unremarkable. Glucose was elevated 425. Total bilirubin was normal at 0.5. Alk phos was 169, ALT 89, AST 82, lipase 267. Urinalysis was normal. Lactate was elevated 2.9. hCG was negative. CT of the abdomen pelvis without contrast showed some hepatosplenomegaly otherwise nothing acute. Ultrasound of the gallbladder obtained showed a distended voluminous gallbladder without evidence of cholecystitis.] Emergency Department Course and Treatment: [IV line established on arrival. Patient was medicated with morphine and Zofran.] I discussed results with patient. At this point is unclear the etiology of her abdominal pain. We discussed options of discharged home with some pain medication and follow-up with her primary care physician as she has appointment scheduled for next week. I will also refer her to general surgeon on-call. Other option was to admit for pain control however she would prefer to go home and does not want to be admitted at this time. Treatment Plan: [Patient to follow-up with primary care physician and general surgeon on-call. She is advised to return if worsening pain, fever, vomiting, or condition should worsen anyway.] I will also start patient on Prevacid. Disposition: [Discharged home in stable condition] Impression: [Abdominal pain-etiology uncertain Hyperglycemia] This note was generated with [employer] dictation software. It may contain incorrect words, spelling, and punctuation that were not noted in review of the chart prior to signing ED Disposition - Plan for ED Patient: Referrals: Verona Villarreal MD [Primary Care Provider] -
[2020-12-30] MEDS: Ondansetron 4 MG/2 ML Vial IV (16:15)
[2020-12-30] MEDS: Morphine 4 MG/ML Syringe IV ×2 (16:15→17:07)
[2020-12-30] MEDS: 0.9% Normal Saline 1,000 ML 125 ML IV (16:15)
[2020-12-30 16:31] LABS: Absolute Lymphocyte Count 1.01 X10^3/uL (0.83-4.51); Basophil# 0.02 X10^3/uL; Basophil% 0.5 % (0-1); Eosinophil# 0.08 X10^3/uL; Eosinophils% 1.8 % (0-5); Hematocrit 39.5 % (37-47); Hemoglobin 11.7 g/dL (12.0-15.0); Lymphocyte # 1.01 X10^3/ul (0.83-4.51); Mean Corp Hgb Conc 29.6 g/dL (32-36); Mean Corpuscular Hgb 22.6 pg (27.0-32.0); Mean Corpuscular Volume 76.4 fL (81-99); Mean Platelet Vol. 10.2 fl (6.2-12.0); Monocyte# 0.22 X10^3/uL; NRBC Flagged by Analyzer 0 % (0-5); Neutrophil # 3.03 X10^3/uL (2.7-7.7); POSITIVE MORPHOLOGY YES; Platelet Count 104 K/mm3 (150-450); RBC Distribution Width CV 20.2 % (11.6-14.6); RBC Distribution Width SD 55.2 fl (35.1-43.9); Red Blood Count 5.17 M/mm3 (4.2-5.4); White Blood Count 4.4 K/mm3 (4.4-11.0)
[2020-12-30 16:38] LABS: Differential Indicated SCAN CRITERIA MET
[2020-12-30 16:45] LABS: ALB/GLOB Ratio 0.7 RATIO (0.9-2.4); AST(SGOT) 82 U/L (15-37); Alanine Aminotransfer ALT/SGPT 89 U/L (13-56); Alkaline Phosphatase 169 U/L (45-117); Anion Gap 4 (5-15); BUN 10 mg/dL (7-18); BUN/Creat Ratio 11.8 RATIO (10-20); Calcium,Total 8.5 mg/dL (8.5-10.1); Chloride 102 mmol/L (98-107); Creatinine, Serum 0.85 mg/dL (0.55-1.02); EST Glomerular Filtration Rate 79 mL/min (>60); Est Glom Filt Rate - Afr Amer 96 mL/min (>60); Estimated Creatinine Clearance 76.73 ml/min; Globulin 4.6 g/dL (2.2-4.2); Glucose 425 mg/dL (74-106); Lipase 267 U/L (73-393); Potassium 3.9 mmol/L (3.5-5.1); Protein, Total 7.6 g/dL (6.4-8.2); Sodium Level 133 mmol/L (136-145)
--- NOTE | 2020-12-30 16:56 | ED.RN ---
lactic 2.9. aware
[2020-12-30 16:58] LABS: Lactic Acid 2.9 mmol/L (0.4-1.9)
[2020-12-30 16:59] LABS: Internal QC Validated? YES +Cl - CLEAR BKGD; Pregnancy, Serum, hCG Quali. NEGATIVE Negative
[2020-12-30 17:06] LABS: Bacteria 0 SEEN /hpf (None Seen); Mucous, Urine 0 SEEN /hpf (<or=2+); Red Blood Cells-Urine 0 SEEN /hpf (0-5); Squamous Epithelial Cells - UA 0 SEEN /hpf (5-10); White Blood Cells 0 SEEN /hpf (0-5)
[2020-12-30 17:11] LABS: Color, Urine Yellow (Yellow); Glucose, Dipstick 1000 mg/dl (Normal); Ketone-Dipstick Negative (Negative); Leukocyte Esterase-Dipstick Negative /ul (Negative); Nitrite-Dipstick Negative (Negative); Occult Blood-Urine 10 /ul (Negative); Protein-Dipstick Negative (Negative); Specific Gravity, Urine 1.015 (1.002-1.030); Urine Bilirubin Dipstick Negative (Negative); Urine Clarity Clear (Clear); Urine Urobilinogen Normal (Normal)
[2020-12-30 17:11] LABS: Platelet Estimate MOD DEC (ADEQ); Red Cell Morphology N CHROM NORMAL (NORM C&C)
[2020-12-30 17:12] LABS: Anisocytosis 1+; Microcytosis 1+; Polychromasia RARE; Target Cells RARE
[2020-12-30 17:17] VITALS: BP 138/59; PULSE 102; RESP 20; O2SAT 96
--- NOTE | 2020-12-30 17:52 | US_ITS ---
STUDY: ABDOMINAL ULTRASOUND - RIGHT UPPER QUADRANT REASON FOR VISIT: Female, 40 years old abdominal pain TECHNIQUE: Ultrasound evaluation of the right upper quadrant was performed with real-time and static boyce-scale imaging. TECHNICAL QUALITY: Adequate. COMPARISON: Abdomen and pelvic CT exam of 12/30/2020 FINDINGS: Liver: The liver measures 26 cm. There is increased echogenicity consistent with fatty infiltration. The bile ducts are within normal limits. There is hepatic color flow. The direction of portal flow is hepatopetal. There is no demonstrated mass lesion. Gallbladder: Large volume gallbladder The gallbladder wall measures 2 mm. There is a negative sonographic Jain''s sign. There is no pericholecystic fluid. There are no gallstones. Common Bile Duct (C.B.D.): The common bile duct measures 5 mm. Pancreas: Normal body and head of the pancreas. Pancreatic tail obscured by bowel gas. There is normal echogenicity of the pancreas. There is no demonstrated pancreatic mass or cyst. Right Kidney: Normal size of the right kidney. The right kidney measures 16.5 x 6.2 x 6.6 cm. Normal renal cortex. The right cortex measures 1.4 cm. There is no demonstrated renal mass or cyst. There is no right hydronephrosis. US/Gallbladder IMPRESSION: Fatty hepatomegaly. Negative for focal hepatic abnormality. Hepatopedal flow. Large volume gallbladder without wall thickening, pericholecystic fluid, sludge or stones. Nondistended common bile duct. Normal pancreatic head and body. Tail not visualized secondary to bowel gas. Unremarkable right kidney. Electronically Signed: Alicia Floyd MD at 20:59 EDT , Service support ,
[2020-12-30 18:18] VITALS: BP 118/67; PULSE 94; RESP 18; O2SAT 97
[2020-12-30 20:20] LABS: Reflex Lactate? Y
[2020-12-30 21:09] LABS: Lactic Acid 1.6 mmol/L (0.4-1.9)
--- NOTE | 2020-12-30 21:14 | ED.DEP ---
ED Disposition - Plan for ED Patient: Instructions: ED Abdominal Pain Unkn Cause Fem Prescriptions: Hydrocodone Bitart/Apap 5-325 [[place] 5MG-325MG] 1 tablet PO Q4H PRN PRN 2 Days #10 tab PRN Reason: Pain Prescription Printed Lansoprazole [Prevacid] 30 mg PO DAILY #30 capsule Prescription Printed Referrals: Verona Villarreal MD [Primary Care Provider] - 3-5 Days Gisela Martinez MD [STAFF PHYSICIAN] - 3-5 Days
[2020-12-30 21:18] VITALS: BP 128/78; PULSE 97; RESP 16; O2SAT 99
[2020-12-31 11:51] LABS: Pathologist Review Reviewed
== END 2020-12-30 21:23 | disposition home or self-care (01) ==
LOC: ED 16:28
PROVIDERS: Emergency Provider Emergency Medicine; PCP Internal Medicine
DX: R10.9 Unspecified abdominal pain (principal); E11.65 Type 2 diabetes mellitus with hyperglycemia; J45.909 Unspecified asthma, uncomplicated; F31.9 Bipolar disorder, unspecified; Z72.0 Tobacco use; Z79.84 Long term (current) use of oral hypoglycemic drugs; Z79.899 Other long term (current) drug therapy
CPT/HCPCS: 74176; 76705; 80053; 81001; 83605; 83690; 84703; 85025; 96361; 96374; 96375; 96376; 99283; J7030; A4216; J2405

== ENCOUNTER 2021-03-20 20:38 | Emergency (ER) | payer MEDICAID, SELFPAY ==
[2021-03-20 20:39] VITALS: BP 123/54; PULSE 90; RESP 16; TEMP 36.3; O2SAT 100; BMI 61.9
[2021-03-20 20:59] LABS: Bacteria 0 SEEN /hpf (None Seen); Mucous, Urine 0 SEEN /hpf (<or=2+)
[2021-03-20 21:03] LABS: Color, Urine Yellow (Yellow); Glucose, Dipstick Normal (Normal); Ketone-Dipstick 5 mg/dl (Negative); Leukocyte Esterase-Dipstick 500 /ul (Negative); Nitrite-Dipstick Negative (Negative); Occult Blood-Urine 250 /ul (Negative); Protein-Dipstick 30 mg/dl (Negative); Specific Gravity, Urine 1.025 (1.002-1.030); Urine Bilirubin Dipstick Negative (Negative); Urine Clarity Sl. Cloudy (Clear); Urine Urobilinogen 1 mg/dl (Normal)
[2021-03-20 21:12] LABS: Amorphous Sediment 1+ URATE; Red Blood Cells-Urine 5-10 SEEN /hpf (0-5); Squamous Epithelial Cells - UA 0-5 SEEN /hpf (5-10); White Blood Cells 10-25 SEEN /hpf (0-5)
[2021-03-20 21:15] LABS: Absolute Neutrophil Count 3.4 X10^3/uL (2.0-7.7); Basophil# 0.02 X10^3/uL; Basophil% 0.4 % (0-1); Eosinophils% 1.8 % (0-5); Hematocrit 39.2 % (37-47); Hemoglobin 11.6 g/dL (12.0-15.0); Lymphocyte % 29.4 % (19-41); Mean Corp Hgb Conc 29.6 g/dL (32-36); Mean Corpuscular Hgb 22.4 pg (27.0-32.0); Mean Corpuscular Volume 75.7 fL (81-99); Mean Platelet Vol. 9.9 fl (6.2-12.0); Monocyte# 0.31 X10^3/uL; Monocyte% 5.7 % (0-10); NRBC Flagged by Analyzer 0 % (0-5); Neutrophil # 3.39 X10^3/uL (2.7-7.7); Neutrophil % 62.3 % (47-70); POSITIVE MORPHOLOGY YES; Platelet Count 145 K/mm3 (150-450); RBC Distribution Width CV 20.7 % (11.6-14.6); RBC Distribution Width SD 55.4 fl (35.1-43.9); Red Blood Count 5.18 M/mm3 (4.2-5.4); White Blood Count 5.4 K/mm3 (4.4-11.0)
[2021-03-20 21:19] LABS: Differential Indicated SCAN CRITERIA MET
[2021-03-20 21:23] LABS: Anion Gap 7 (5-15); BUN 12 mg/dL (7-18); BUN/Creat Ratio 15.7 RATIO (10-20); Calcium,Total 8.4 mg/dL (8.5-10.1); Chloride 104 mmol/L (98-107); Creatinine, Serum 0.76 mg/dL (0.55-1.02); EST Glomerular Filtration Rate 90 mL/min (>60); Est Glom Filt Rate - Afr Amer 108 mL/min (>60); Estimated Creatinine Clearance 82.21 ml/min; Glucose 219 mg/dL (74-106); Potassium 3.6 mmol/L (3.5-5.1); Sodium Level 136 mmol/L (136-145)
[2021-03-20 21:41] LABS: Anisocytosis 1+; Differential Comment SCANNED; Hypochromasia 1+; Microcytosis 2+
--- NOTE | 2021-03-20 21:41 | ED.VIS.GI ---
HPI HPI - GI History of Present Illness Chief Complaint: Abd Pain Informant: patient Abdominal Pain/Flank Pain Onset: Days Context: Gradual Onset Timing: Continuous Quality: Aching, Cramping and Dull Location: Diffuse Current Severity: Mild Maximum Severity: Mild Nausea/Vomiting/Emesis GI Symptom: Positive for Nausea Onset: Days Diarrhea/Melena/Hematochezia GI Symptom: Negative for Diarrhea and Melena Associated Symptoms Associated Symptoms: Negative for Dysuria and Frequency Narrative Narrative: 40-year-old female complaining of abdominal pain for about 3 days. Describes it as diffuse. With bloating. Her only prior abdominal surgery with a hernia repair with mesh. She denies any fever. No dysuria. She does have a history of diabetes. Prior similar symptoms: No Recent Illness/Hospitalization: No PFSH PFSH Home Medications loratadine [Allergy Relief (loratadine)] 10 mg PO DAILY 07/07/13 [History Last Taken 11/07/19] lorazepam 1 mg PO BID PRN PRN 12/11/13 [History Last Taken 06/26/19] albuterol sulfate [Ventolin HFA] 1 puff INHALATION Q4H PRN PRN 03/26/14 [History Last Taken 11/07/19] trazodone 200 mg PO QHS 01/12/15 [History Last Taken 11/07/19] montelukast 10 mg PO QHS 08/10/16 [History Last Taken 11/07/19] sumatriptan succinate [Imitrex] 25 mg PO .X1 PRN PRN 08/10/16 [History Last Taken 06/30/19] esomeprazole magnesium [Nexium] 20 mg PO DAILY 03/07/18 [History Last Taken 11/07/19] aripiprazole 2 mg PO QHS 07/01/19 [History Last Taken 11/07/19] citalopram 40 mg PO DAILY 07/01/19 [History Last Taken 11/07/19] lamotrigine 200 mg PO BID 07/01/19 [History Last Taken 11/07/19] metformin 1,000 mg PO BID 07/01/19 [History Last Taken 11/07/19] naproxen 500 mg PO BID PRN PRN 07/01/19 [History Last Taken Unknown] spironolactone 25 mg PO DAILY 07/01/19 [History Last Taken 11/07/19] topiramate 100 mg PO BID 07/01/19 [History Last Taken 11/07/19] glimepiride 1 mg PO DAILY 11/08/19 [History Last Taken 11/07/19] lansoprazole 30 mg PO DAILY #30 capsule 12/30/20 [Rx Last Taken Unknown] Allergy/AdvReac Type Severity Reaction Status Date / Time melatonin Allergy Hives Verified 03/20/21 20:40 Penicillins Allergy Hives Verified 03/20/21 20:40 tramadol Allergy Hives Verified 03/20/21 20:40 Social History Smoking Status: Former smoker ROS ROS ED ROS Narrative Nausea and abdominal pain. Review of Systems ROS Unobtainable: Denies due to encephalopathy Constitutional Constitutional ED: Denies chills or fever(s) ENT ENT ED: Denies ear pain or sore throat Cardiovascular Cardiovascular: Denies chest pain Respiratory/Chest Respiratory/Chest: Denies cough or dyspnea Gastrointestinal Gastrointestinal: Reports abdominal pain and nausea; Denies constipation, diarrhea or vomiting Genitourinary Genitourinary ED: Denies dysuria or hematuria Musculoskeletal Musculoskeletal: Denies arthralgias or myalgias Integumentary Denies abscess or rash Neurologic Neurologic: Denies headache(s) Psychiatric Psychiatric: Denies depression Endocrine Endocrinology: Denies polyuria Hematologic/Lymphatic Hematologic/Lymphatic: Denies easy bruising Allergic/Immunologic Allergic/Immunologic ED: Denies urticaria EXAM Physical Exam Narrative Exam Narrative: 40-year-old female morbidly obese. Vital signs stable afebrile. HEENT exam unremarkable. Lungs clear to auscultation. Heart regular rhythm no murmur rate about 90. Abdomen obese. Distended. Diffusely tender. No peritoneal signs. Decreased bowel sounds. No obvious hernia or mass. Moving all 4 extremities. Neurologically awake alert no focal motor deficits. Const Vital Signs: 03/20/21 20:39 Temperature 97.4 F L Temperature Source Temporal Pulse Rate 90 Respiratory Rate 16 Blood Pressure 123/54 H Blood Pressure Mean 77 Pulse Ox 100 Oxygen Delivery Method Room Air Positive well nourished and well developed General Appearance ED: well developed HEENT Reports moist mucous membranes normocephalic and atraumatic; Negative for trauma or tenderness Eyes PERRL and EOMs intact bilaterally Neck no lymphadenopathy, supple and no JVD General: Negative for tenderness Resp normal respiratory effort and clear to auscultation bilaterally Auscultation: Negative for rales, rhonchi or wheezes Cardio regular rate, regular rhythm and no murmurs GI no masses; Negative for non-tender or non-distended Inspection: abdominal distention Auscultation: hypoactive bowel sounds; Negative for normoactive bowel sounds or hyperactive bowel sounds Palpation: soft and tender; Negative for guarding, rigid or rebound tenderness present Back/Spine no CVA tenderness Extremity full ROM General Extremety ED: Yes edema General Extremity: edema Neuro CN's II-XII intact bilaterally and moves all extremities Sensorium / Orientation: alert, oriented to person, oriented to place, oriented to time and orientation impaired Psych mental status grossly normal Skin Lesions: no lesions Rashes: no rashes MDM MDM MDM Narrative Medical decision making narrative: 40-year-old female diffuse abdominal pain. CAT scan labs are being obtained. Treated with morphine for pain and Zofran for nausea. IV fluids. Repeat exam patient doing well at 12:15 AM will be discharged home. We went over all of her test results. She will follow up with her primary care physician. Impression: Abdominal pain uncertain etiology Lab Data Attestation: I reviewed the patient's lab results. Lab results narrative: CBC shows a white count of 5. Hemoglobin 11.6. Electrolytes unremarkable gap 7. BUN of 12 creatinine 0.7. Glucose elevated 219. UA shows blood and urine no nitrites. 5-10 reds. 10-25 whites. No bacteria and no epithelial cells. Liver enzymes normal. Lipase normal. Labs: Laboratory Results - last 24 hr 03/20/21 03/20/21 03/20/21 20:50 21:00 21:00 WBC 5.4 RBC 5.18 Hgb 11.6 L Hct 39.2 MCV 75.7 L MCH 22.4 L MCHC 29.6 L RDW Std Deviation 55.4 H RDW Coeff of Baltazar 20.7 H Plt Count 145 L MPV 9.9 Immature Gran % (Auto) 0.400 Neut % (Auto) 62.3 Lymph % (Auto) 29.4 [place] % (Auto) 5.7 Eos % (Auto) 1.8 Baso % (Auto) 0.4 Absolute Neuts (auto) 3.4 Absolute Lymphs (auto) 1.60 Nucleated RBC % 0 Differential Comment SCANNED Hypochromasia 1+ Anisocytosis 1+ Microcytosis 2+ Sodium 136 Potassium 3.6 Chloride 104 Carbon Dioxide 25.0 Anion Gap 7 BUN 12 Creatinine 0.76 Estim Creat Clear Calc 82.21 Est GFR (MDRD) Af Amer 108 Est GFR (MDRD) Non-Af 90 BUN/Creatinine Ratio 15.7 Glucose 219 H Calcium 8.4 L Total Bilirubin Direct Bilirubin AST ALT Alkaline Phosphatase Total Protein Albumin Globulin Lipase Urine Color Yellow Urine Clarity Sl. Cloudy Urine pH 5.0 Ur Specific [place] 1.025 Urine Protein 30 H Urine Glucose (UA) Normal Urine Ketones 5 H Urine Occult Blood 250 H Urine Nitrite Negative Urine Bilirubin Negative Urine Urobilinogen 1 H Ur Leukocyte Esterase 500 H Urine RBC 5-10 SEEN Urine WBC 10-25 SEEN Ur Squamous Epith Cells 0-5 SEEN Amorphous Sediment 1+ URATE Urine Bacteria 0 SEEN Urine Mucus 0 SEEN 03/20/21 21:00 WBC RBC Hgb Hct MCV MCH MCHC RDW Std Deviation RDW Coeff of Baltazar Plt Count MPV Immature Gran % (Auto) Neut % (Auto) Lymph % (Auto) [place] % (Auto) Eos % (Auto) Baso % (Auto) Absolute Neuts (auto) Absolute Lymphs (auto) Nucleated RBC % Differential Comment Hypochromasia Anisocytosis Microcytosis Sodium Potassium Chloride Carbon Dioxide Anion Gap BUN Creatinine Estim Creat Clear Calc Est GFR (MDRD) Af Amer Est GFR (MDRD) Non-Af BUN/Creatinine Ratio Glucose Calcium Total Bilirubin 0.70 Direct Bilirubin 0.21 AST 90 H ALT 81 H Alkaline Phosphatase 134 H Total Protein 7.7 Albumin 3.3 Globulin 4.4 H Lipase 248 Urine Color Urine Clarity Urine pH Ur Specific [place] Urine Protein Urine Glucose (UA) Urine Ketones Urine Occult Blood Urine Nitrite Urine Bilirubin Urine Urobilinogen Ur Leukocyte Esterase Urine RBC Urine WBC Ur Squamous Epith Cells Amorphous Sediment Urine Bacteria Urine Mucus Radiography Diagnostic Testing: Radiology Impression Abdomen/Pelvis CT 03/20/21 21:48 IMPRESSION: Hepatosplenomegaly. 5 cm retrolisthesis L5 on S1. Electronically Signed: Go Marie MD at 23:00 EDT Tel , Service support , Discharge Plan Triage Chief Complaint: Abd Pain ED Provider: Shady Clark Dx/Rx/DC Orders Instructions: ED Abdominal Pain Unkn Cause Fem Prescriptions: No Action loratadine [Allergy Relief (loratadine)] 10 MG tablet 10 mg PO DAILY RF: 0 lorazepam 1 MG tablet 1 mg PO BID PRN PRN (Reason: Anxiety) RF: 0 albuterol sulfate [Ventolin HFA] 1 INHALER inhaler 1 puff inhalation Q4H PRN PRN (Reason: Shortness Of Breath) RF: 0 trazodone 100 MG tablet 200 mg PO QHS RF: 0 sumatriptan succinate [Imitrex] 25 MG tablet 25 mg PO .X1 PRN PRN (Reason: Migraine Symptoms) RF: 0 montelukast 10 MG tablet 10 mg PO QHS RF: 0 esomeprazole magnesium [Nexium] 20 MG capsule 20 mg PO DAILY RF: 0 metformin 500 MG tablet 1,000 mg PO BID RF: 0 lamotrigine 200 mg tablet 200 mg PO BID RF: 0 citalopram 40 tablet 40 mg PO DAILY RF: 0 spironolactone 25 MG tablet 25 mg PO DAILY RF: 0 topiramate 100 MG tablet 100 mg PO BID RF: 0 naproxen 500 MG tablet 500 mg PO BID PRN PRN (Reason: Pain Or Fever) RF: 0 aripiprazole 2 mg tablet 2 mg PO QHS RF: 0 glimepiride 2 MG tablet 1 mg PO DAILY RF: 0 lansoprazole 30 MG capsule 30 mg PO DAILY Qty: 30 RF: 0 Primary Care Provider: Verona Villarreal Referrals: Verona Villarreal MD [Primary Care Provider] - 3-5 Days if not improving Activity Restrictions/Additional Instructions: No specific cause for your abdominal pain tonight. Your labs, urinalysis and CAT scan were unremarkable. Follow-up with primary care physician for further evaluation. Disposition Disposition: Home, Self Care
--- NOTE | 2021-03-20 21:48 | CT_ITS ---
INDICATION: abd pain EXAMINATION: CT Abdomen And Pelvis W/ Contrast Injection TECHNIQUE: Helically acquired images were obtained of the abdomen and pelvis after IV contrast. A radiation dose optimization technique was used for this scan. IV Contrast dosage and agent: IV 100mL [id number]-300 Oral contrast: None. COMPARISON: None. FINDINGS: Visualized lung bases: Unremarkable Liver: The liver is enlarged measuring 21.8 cm in craniocaudal dimension. Gallbladder: Unremarkable Spleen: The spleen is markedly enlarged measuring 18.7 cm in craniocaudal dimension. Pancreas: Unremarkable Adrenal Glands: Unremarkable Kidneys: Unremarkable Vasculature: Unremarkable GI Tract: Unremarkable Lymphadenopathy: None Peritoneum: No ascites. Bladder: Unremarkable Reproductive organs: Unremarkable Bones/Soft tissues: 5 cm retrolisthesis L5 on S1. CT/Abdomen/Pelvis W IV Cont ONLY IMPRESSION: Hepatosplenomegaly. 5 cm retrolisthesis L5 on S1. Electronically Signed: Go Marie MD at 23:00 EDT Tel , Service support ,
[2021-03-20] MEDS: 0.9% Normal Saline 1,000 ML 1000 ML IV (22:02)
[2021-03-20] MEDS: morphine 8 MG/ML Syringe IV (22:02)
[2021-03-20] MEDS: Ondansetron 4 MG/2 ML Vial IV (22:02)
[2021-03-20 22:24] LABS: AST(SGOT) 90 U/L (15-37); Alanine Aminotransfer ALT/SGPT 81 U/L (13-56); Albumin, Serum 3.3 g/dL (3.2-5.0); Alkaline Phosphatase 134 U/L (45-117); Bilirubin, Direct 0.21 mg/dL (0.00-0.30); Globulin 4.4 g/dL (2.2-4.2); Lipase 248 U/L (73-393); Protein, Total 7.7 g/dL (6.4-8.2)
[2021-03-20] MEDS: Ketorolac 30 MG/ML Syringe IV (23:36)
[2021-03-21 00:25] VITALS: BP 122/60; PULSE 87; RESP 18; O2SAT 97
== END 2021-03-21 00:26 | disposition home or self-care (01) ==
PROVIDERS: Emergency Provider Emergency Medicine; PCP Internal Medicine
DX: R10.84 Generalized abdominal pain (principal); R11.0 Nausea; E11.9 Type 2 diabetes mellitus without complications; E66.01 Morbid (severe) obesity due to excess calories; Z79.84 Long term (current) use of oral hypoglycemic drugs; Z79.899 Other long term (current) drug therapy; Z79.1 Long term (current) use of non-steroidal anti-inflammatories (NSAID); Z87.891 Personal history of nicotine dependence
CPT/HCPCS: 74177; 80048; 80076; 81001; 83690; 85025; 96361; 96374; 96375; 99282; J7030; Q9967; A4216; J2405

== ENCOUNTER 2021-06-03 18:35 | Emergency (ER) | payer MEDICAID, SELFPAY ==
[2021-06-03 18:36] VITALS: BP 154/75; PULSE 108; RESP 19; TEMP 36.6; O2SAT 97; BMI 64.4
[2021-06-03 18:39] VITALS: BP 154/75; PULSE 108; RESP 19; TEMP 36.6; O2SAT 97
--- NOTE | 2021-06-03 19:55 | EKG12_ITS ---
Test Reason : SOB Blood Pressure : / mmHG Vent. Rate : 106 BPM Atrial Rate : 106 BPM P-R Int : 158 ms QRS Dur : 074 ms QT Int : 340 ms P-R-T Axes : 058 014 047 degrees QTc Int : 451 ms Sinus tachycardia Low voltage QRS Borderline ECG Confirmed by KRAIG CAST, CAROLINE ([id number]), copy editor BRIANNE YANG ([id number]) on 06/06/2021 11:33:01 AM Referred By: CALEB Confirmed By:CAROLINE CORNELL MD
--- NOTE | 2021-06-03 20:13 | ED.VIS.DYS ---
HPI History of Present Illness Chief Complaint: Cough Informant: patient Narrative Narrative: 40-year-old female presents the emergency room with shortness of breath. She states that her family has Covid and beginning yesterday she had a sudden increase in her dyspnea. She wonders if she is having an asthma attack or she has Covid that is getting worse. She notes low-grade temperatures of 99 degrees. Sputum nonproductive. She took a breathing treatment prior to arrival. [facility] Medical History (Updated 06/03/21 @ 21:[address] Collins Villa, ) Asthma Bipolar 1 disorder Diabetes Obesity Home Medications loratadine [Allergy Relief (loratadine)] 10 mg PO DAILY 07/07/13 [History Last Taken 11/07/19] lorazepam 1 mg PO BID PRN PRN 12/11/13 [History Last Taken 06/26/19] albuterol sulfate [Ventolin HFA] 1 puff INHALATION Q4H PRN PRN 03/26/14 [History Last Taken 11/07/19] trazodone 200 mg PO QHS 01/12/15 [History Last Taken 11/07/19] montelukast 10 mg PO QHS 08/10/16 [History Last Taken 11/07/19] sumatriptan succinate [Imitrex] 25 mg PO .X1 PRN PRN 08/10/16 [History Last Taken 06/30/19] esomeprazole magnesium [Nexium] 20 mg PO DAILY 03/07/18 [History Last Taken 11/07/19] aripiprazole 2 mg PO QHS 07/01/19 [History Last Taken 11/07/19] citalopram 40 mg PO DAILY 07/01/19 [History Last Taken 11/07/19] lamotrigine 200 mg PO BID 07/01/19 [History Last Taken 11/07/19] metformin 1,000 mg PO BID 07/01/19 [History Last Taken 11/07/19] naproxen 500 mg PO BID PRN PRN 07/01/19 [History Last Taken Unknown] spironolactone 25 mg PO DAILY 07/01/19 [History Last Taken 11/07/19] topiramate 100 mg PO BID 07/01/19 [History Last Taken 11/07/19] glimepiride 1 mg PO DAILY 11/08/19 [History Last Taken 11/07/19] lansoprazole 30 mg PO DAILY #30 capsule 12/30/20 [Rx Last Taken Unknown] prednisone 60 mg PO DAILY #12 tablet 06/03/21 [Rx Last Taken Unknown] Allergy/AdvReac Type Severity Reaction Status Date / Time melatonin Allergy Hives Verified 03/20/21 20:40 Penicillins Allergy Hives Verified 03/20/21 20:40 tramadol Allergy Hives Verified 03/20/21 20:40 Social History (Updated 06/03/21 @ 20:[address] Collins Villa, DO) Smoking Status: Current every day smoker tobacco type: cigarettes substance use type: does not use ROS ROS ED Constitutional Constitutional ED: Denies chills or weight loss Eyes Eyes: Denies change in vision or diplopia ENT ENT ED: Denies ear pain, rhinorrhea or sore throat Cardiovascular Cardiovascular: Denies chest pain, orthopnea, palpitations or racing heartbeat Respiratory/Chest Respiratory/Chest: Reports cough, dyspnea and dyspnea on exertion; Denies orthopnea Gastrointestinal Gastrointestinal: Denies abdominal pain, diarrhea, nausea or vomiting Genitourinary Genitourinary ED: Denies dysuria, hematuria or urinary frequency Musculoskeletal Musculoskeletal: Denies arthralgias or myalgias Integumentary Denies abscess or rash Neurologic Neurologic: Denies headache(s) or weakness Psychiatric Psychiatric: Denies anxiety, depression, suicidal ideation or suicidal thoughts Endocrine Endocrinology: Denies polydipsia, polyphagia or polyuria Allergic/Immunologic Allergic/Immunologic ED: Denies mouth swelling, tongue swelling or urticaria EXAM Physical Exam Const Vital Signs: 06/03/21 18:36 06/03/21 18:39 06/03/21 20:15 Temperature 98 F 98 F 97.9 F Temperature Source Oral Oral Oral Pulse Rate 108 H 108 H 104 H Respiratory Rate 19 H 19 H 22 H Respiratory Effort Normal Non-Labored Respiratory Depth Deep Respiratory Pattern Tachypnea Blood Pressure 154/75 H 154/75 H 147/89 H Blood Pressure Mean 101 101 108 Pulse Ox 97 97 96 Oxygen Delivery Method Room Air Room Air Room Air Positive well nourished and well developed General Appearance ED: well developed HEENT Reports normocephalic, head/scalp atraumatic and moist mucous membranes Eyes PERRL and EOMs intact bilaterally Neck no lymphadenopathy, supple and no JVD Resp Resp Narrative: Patient is tachypneic Auscultation: wheezes expiratory wheezes Cardio regular rhythm and no murmurs Rate: tachycardic GI normal to inspection, nondistended, normoactive bowel sounds and non-tender Palpation: soft Back/Spine no CVA tenderness and normal ROM Extremity normal to inspection General Extremety ED: Negative for edema General Extremity: Negative for edema Neuro oriented x3 and CN's II-XII intact bilaterally Sensorium / Orientation: alert Motor Exam: strength 5/5 throughout Psych mental status grossly normal Mood & Affect: Negative for depressed or tearful Skin no rashes or lesions noted and no wounds MDM MDM MDM Narrative Medical decision making narrative: Basic blood work showed a normal troponin. White count 4.5. D-dimer 0.72. 3 documentation of the chest x-ray is no diagnosis. Is the elevated D-dimer and her symptoms CTA was obtained which is also negative. Patient received a DuoNeb and prednisone. I believe the patient can be discharged home she has a nebulizer with plenty of solution. Would recommend doing this every 3-4 hours. Also provide her burst prednisone for the next 4 additional days. Lab Data Attestation: I reviewed the patient's lab results. Labs: Laboratory Results - last 24 hr 06/03/21 06/03/21 06/03/21 20:00 20:00 20:00 WBC 4.5 RBC 4.91 Hgb 11.6 L Hct 39.7 MCV 80.9 L MCH 23.6 L MCHC 29.2 L RDW Std Deviation 65.7 H RDW Coeff of Baltazar 22.6 H Plt Count 126 L MPV 8.7 Immature Gran % (Auto) 0.400 Neut % (Auto) 69.3 Lymph % (Auto) 20.7 Crane % (Auto) 6.5 Eos % (Auto) 2.7 Baso % (Auto) 0.4 Absolute Neuts (auto) 3.1 Absolute Lymphs (auto) 0.92 Nucleated RBC % 0 Platelet Estimate SLT DEC RBC Morphology N CHROM Anisocytosis 1+ D-Dimer Quant (PE/DVT) 0.72 H* Sodium 140 Potassium 3.8 Chloride 111 H Carbon Dioxide 22.0 Anion Gap 7 BUN 8 Creatinine 0.76 Estim Creat Clear Calc 82.21 Est GFR (MDRD) Af Amer 109 Est GFR (MDRD) Non-Af 90 BUN/Creatinine Ratio 10.6 Glucose 148 H Calcium 8.8 Total Bilirubin 0.40 AST 51 H ALT 52 Alkaline Phosphatase 106 Troponin I High Sens 5 Total Protein 8.2 Albumin 3.2 Globulin 5.0 H Albumin/Globulin Ratio 0.6 L Radiography Diagnostic Testing: Radiology Impression Chest X-Ray 06/03/21 20:27 IMPRESSION: No radiographic evidence of acute cardiopulmonary disease. at 2122 Reported and signed by: Mamadou Montelongo MD Electronically Signed: Mamadou Montelongo MD at 21:20 EDT Tel , Service support , Chest CTA 06/03/21 20:50 IMPRESSION: Negative CTA chest. Individualized dose optimization techniques were used for this CT. at 2146 Reported and signed by: Mamadou Montelongo MD Electronically Signed: Mamadou Montelongo MD at 21:45 EDT Tel , Service support , EKG Initial EKG: Attestation: I personally reviewed and interpreted this EKG as follows: Comments: Sinus tachycardia with a ventricular rate of 106 bpm Discharge Plan Triage Chief Complaint: Cough ED Provider: Collins Villa Dx/Rx/DC Orders Clinical Impression: Asthma exacerbation Instructions: ED Asthma, Acute (Adult) Prescriptions: New prednisone 20 MG tablet 60 mg PO DAILY Qty: 12 RF: 0 No Action loratadine [Allergy Relief (loratadine)] 10 MG tablet 10 mg PO DAILY RF: 0 lorazepam 1 MG tablet 1 mg PO BID PRN PRN (Reason: Anxiety) RF: 0 albuterol sulfate [Ventolin HFA] 1 INHALER inhaler 1 puff inhalation Q4H PRN PRN (Reason: Shortness Of Breath) RF: 0 trazodone 100 MG tablet 200 mg PO QHS RF: 0 sumatriptan succinate [Imitrex] 25 MG tablet 25 mg PO .X1 PRN PRN (Reason: Migraine Symptoms) RF: 0 montelukast 10 MG tablet 10 mg PO QHS RF: 0 esomeprazole magnesium [Nexium] 20 MG capsule 20 mg PO DAILY RF: 0 metformin 500 MG tablet 1,000 mg PO BID RF: 0 lamotrigine 200 mg tablet 200 mg PO BID RF: 0 citalopram 40 tablet 40 mg PO DAILY RF: 0 spironolactone 25 MG tablet 25 mg PO DAILY RF: 0 topiramate 100 MG tablet 100 mg PO BID RF: 0 naproxen 500 MG tablet 500 mg PO BID PRN PRN (Reason: Pain Or Fever) RF: 0 aripiprazole 2 mg tablet 2 mg PO QHS RF: 0 glimepiride 2 MG tablet 1 mg PO DAILY RF: 0 lansoprazole 30 MG capsule 30 mg PO DAILY Qty: 30 RF: 0 Primary Care Provider: Verona Villarreal Referrals: Verona Villarreal MD [Primary Care Provider] - 1 Week if not improving Disposition Disposition: Home, Self Care
[2021-06-03 20:15] VITALS: BP 147/89; PULSE 104; RESP 22; TEMP 36.6; O2SAT 96
[2021-06-03 20:15] LABS: Absolute Lymphocyte Count 0.92 X10^3/uL (0.83-4.51); Absolute Neutrophil Count 3.1 X10^3/uL (2.0-7.7); Basophil# 0.02 X10^3/uL; Basophil% 0.4 % (0-1); Eosinophil# 0.12 X10^3/uL; Eosinophils% 2.7 % (0-5); Hematocrit 39.7 % (37-47); Hemoglobin 11.6 g/dL (12.0-15.0); Lymphocyte # 0.92 X10^3/ul (0.83-4.51); Lymphocyte % 20.7 % (19-41); Mean Corp Hgb Conc 29.2 g/dL (32-36); Mean Corpuscular Hgb 23.6 pg (27.0-32.0); Mean Corpuscular Volume 80.9 fL (81-99); Mean Platelet Vol. 8.7 fl (6.2-12.0); Monocyte# 0.29 X10^3/uL; Monocyte% 6.5 % (0-10); NRBC Flagged by Analyzer 0 % (0-5); Neutrophil # 3.08 X10^3/uL (2.7-7.7); Neutrophil % 69.3 % (47-70); POSITIVE MORPHOLOGY YES; Platelet Count 126 K/mm3 (150-450); RBC Distribution Width CV 22.6 % (11.6-14.6); RBC Distribution Width SD 65.7 fl (35.1-43.9); Red Blood Count 4.91 M/mm3 (4.2-5.4); White Blood Count 4.5 K/mm3 (4.4-11.0)
[2021-06-03 20:18] LABS: Differential Indicated SCAN CRITERIA MET
--- NOTE | 2021-06-03 20:27 | RAD_ITS ---
EXAM: XR CHEST, 1 VIEW : 1980 CLINICAL INDICATION: cough TECHNIQUE: Frontal view of the chest. This report was created using [employer] report generation technology. COMPARISON: 06/21/2020 FINDINGS: LUNGS AND PLEURAL SPACES: Unremarkable. No consolidation or edema. No pneumothorax. No effusion. HEART: Unremarkable. Cardiac silhouette not enlarged. MEDIASTINUM: Central airways and mediastinal contour are unremarkable. BONES/JOINTS: Unremarkable. SOFT TISSUES: Unremarkable. RAD/Chest 1 View (Portable) IMPRESSION: No radiographic evidence of acute cardiopulmonary disease. at 2122 Reported and signed by: Mamadou Montelongo MD Electronically Signed: Mamadou Montelongo MD at 21:20 EDT Tel , Service support ,
[2021-06-03 20:32] LABS: ALB/GLOB Ratio 0.6 RATIO (0.9-2.4); AST(SGOT) 51 U/L (15-37); Alanine Aminotransfer ALT/SGPT 52 U/L (13-56); Albumin, Serum 3.2 g/dL (3.2-5.0); Alkaline Phosphatase 106 U/L (45-117); Anion Gap 7 (5-15); BUN 8 mg/dL (7-18); BUN/Creat Ratio 10.6 RATIO (10-20); Calcium,Total 8.8 mg/dL (8.5-10.1); Chloride 111 mmol/L (98-107); Creatinine, Serum 0.76 mg/dL (0.55-1.02); EST Glomerular Filtration Rate 90 mL/min (>60); Est Glom Filt Rate - Afr Amer 109 mL/min (>60); Estimated Creatinine Clearance 82.21 ml/min; Glucose 148 mg/dL (74-106); Potassium 3.8 mmol/L (3.5-5.1); Protein, Total 8.2 g/dL (6.4-8.2); Sodium Level 140 mmol/L (136-145); Troponin-I HS 5 pg/mL (3.0-54.0)
[2021-06-03 20:36] LABS: D-Dimer Quantitative (DVT/PE) 0.72 FEU/ug/m (0.27-0.49)
[2021-06-03 20:45] LABS: Anisocytosis 1+; Platelet Estimate SLT DEC (ADEQ); Red Cell Morphology N CHROM NORMAL (NORM C&C)
--- NOTE | 2021-06-03 20:50 | CT_ITS ---
EXAM: CT ANGIOGRAPHY CHEST WITHOUT AND WITH INTRAVENOUS CONTRAST : 1980 CLINICAL INDICATION: pulmonary embolism elevated dimer TECHNIQUE: Helically acquired angiography images were obtained of the chest without and with intravenous contrast. This CT exam was performed using one or more of the following dose reduction techniques: automated exposure control, adjustment of the mA and/or kV according to patient size, and/or use of iterative reconstruction technique. This report was created using [employer] report generation technology. MIP reconstructed images were created and reviewed. CONTRAST: IV 100mL [id number] COMPARISON: None. FINDINGS: PULMONARY ARTERIES: Unremarkable. Normal in caliber. No evidence of pulmonary embolism. AORTA: Unremarkable. Normal in caliber. No evidence of dissection. GREAT VESSELS OF AORTIC ARCH: Unremarkable. Normal in caliber. No evidence of dissection. LUNGS AND PLEURAL SPACES: Unremarkable. No mass. No consolidation or edema. No pleural effusion or thickening. No pneumothorax. HEART: Unremarkable. Heart size is normal. No pericardial effusion. No signs of right heart strain, ratio of right ventricle to left ventricle measures less than 1. MEDIASTINUM: Unremarkable. No mediastinal or hilar adenopathy. Esophagus is unremarkable. No hiatal hernia. THYROID: Unremarkable. No thyroid lesions. BONES/JOINTS: Unremarkable. No suspicious lytic or blastic abnormality. CT/CTA Chest W/WO Contrast IMPRESSION: Negative CTA chest. Individualized dose optimization techniques were used for this CT. at 2146 Reported and signed by: Mamadou Montelongo MD Electronically Signed: Mamadou Montelongo MD at 21:45 EDT Tel , Service support ,
[2021-06-03] MEDS: predniSONE 20 MG Tablet 60 MG PO (22:04)
[2021-06-03] MEDS: Ipratropium/Albuterol Sulfate 3 ML AMPUL.NEB INHALATION (22:09)
[2021-06-03 22:10] VITALS: PULSE 103; RESP 16
== END 2021-06-03 22:17 | disposition home or self-care (01) ==
PROVIDERS: Emergency Provider Emergency Medicine; PCP Internal Medicine
DX: J45.901 Unspecified asthma with (acute) exacerbation (principal); Z20.822 Contact with and (suspected) exposure to COVID-19; E11.9 Type 2 diabetes mellitus without complications; F31.9 Bipolar disorder, unspecified; E66.9 Obesity, unspecified; F17.210 Nicotine dependence, cigarettes, uncomplicated; Z79.84 Long term (current) use of oral hypoglycemic drugs; Z79.52 Long term (current) use of systemic steroids
CPT/HCPCS: 71045; 71275; 80053; 84484; 85025; 85379; 87426; 93005; 94640; 99285; Q9967; A4216

== ENCOUNTER 2021-07-07 18:45 | Emergency (ER) | payer MEDICAID, SELFPAY ==
[2021-07-07 18:46] VITALS: BP 142/82; PULSE 90; RESP 20; TEMP 36.6; O2SAT 98; BMI 63.9
--- NOTE | 2021-07-07 19:04 | EDS_ITS ---
HPI History of Present Illness Chief Complaint: Lower Extremity Injury Informant: patient Narrative Narrative: Mechanical fall flexed left knee going up steps. Linoleum floor. No head injuries. Brought in by EMS. Denies history of fractures. No history of gastric ulcers or kidney injury. Patient diabetic on oral medicines. Allergy to penicillin and tramadol. No other complaints. [facility] Medical History Asthma Bipolar 1 disorder Diabetes Obesity Home Medications loratadine [Allergy Relief (loratadine)] 10 mg PO DAILY 07/07/13 [History Last Taken 11/07/19] lorazepam 1 mg PO BID PRN PRN 12/11/13 [History Last Taken 06/26/19] albuterol sulfate [Ventolin HFA] 1 puff INHALATION Q4H PRN PRN 03/26/14 [History Last Taken 11/07/19] trazodone 200 mg PO QHS 01/12/15 [History Last Taken 11/07/19] montelukast 10 mg PO QHS 08/10/16 [History Last Taken 11/07/19] sumatriptan succinate [Imitrex] 25 mg PO .X1 PRN PRN 08/10/16 [History Last Taken 06/30/19] esomeprazole magnesium [Nexium] 20 mg PO DAILY 03/07/18 [History Last Taken 11/07/19] aripiprazole 2 mg PO QHS 07/01/19 [History Last Taken 11/07/19] citalopram 40 mg PO DAILY 07/01/19 [History Last Taken 11/07/19] lamotrigine 200 mg PO BID 07/01/19 [History Last Taken 11/07/19] metformin 1,000 mg PO BID 07/01/19 [History Last Taken 11/07/19] naproxen 500 mg PO BID PRN PRN 07/01/19 [History Last Taken Unknown] spironolactone 25 mg PO DAILY 07/01/19 [History Last Taken 11/07/19] topiramate 100 mg PO BID 07/01/19 [History Last Taken 11/07/19] glimepiride 1 mg PO DAILY 11/08/19 [History Last Taken 11/07/19] lansoprazole 30 mg PO DAILY #30 capsule 12/30/20 [Rx Last Taken Unknown] prednisone 60 mg PO DAILY #12 tablet 06/03/21 [Rx Last Taken Unknown] Allergy/AdvReac Type Severity Reaction Status Date / Time melatonin Allergy Hives Verified 07/07/21 18:59 Penicillins Allergy Hives Verified 07/07/21 18:59 tramadol Allergy Hives Verified 07/07/21 18:59 Social History Smoking Status: Current every day smoker tobacco type: cigarettes substance use type: does not use ROS ROS ED Constitutional Constitutional ED: Denies chills, fever(s) or sweats Eyes Eyes: Denies change in vision ENT ENT ED: Denies dysphagia or sore throat Cardiovascular Cardiovascular: Denies chest pain, leg edema, palpitations or racing heartbeat Respiratory/Chest Respiratory/Chest: Denies cough, dyspnea or dyspnea on exertion Gastrointestinal Gastrointestinal: Denies abdominal pain, diarrhea, nausea or vomiting Genitourinary Genitourinary ED: Denies dysuria, hematuria or urinary frequency Musculoskeletal Musculoskeletal: Reports arthralgias; Denies back pain, extremity pain or neck pain Integumentary Denies rash or wounds Neurologic Neurologic: Denies headache(s), paresthesias or weakness EXAM Physical Exam Const Vital Signs: 07/07/21 18:46 Temperature 97.9 F Temperature Source Temporal Pulse Rate 90 Respiratory Rate 20 H Blood Pressure 142/82 H Blood Pressure Mean 102 Pulse Ox 98 Oxygen Delivery Method Room Air Positive well nourished, well developed and obese General Appearance ED: well developed Nutritional Appearance: obese HEENT Reports moist mucous membranes normocephalic and atraumatic Eyes PERRL, EOMs intact bilaterally and conjunctivae normal General Eye ED: Yes normal appearance of both eyes Neck no lymphadenopathy and supple General: Negative for tenderness Chest Wall Chest: Negative for tenderness Resp normal respiratory effort and normal air movement Effort and Inspection: symmetric chest movement; Negative for respiratory distress Cardio regular rate, regular rhythm and no murmurs Peripheral Pulses: pulses 2+ throughout GI normal to inspection, nondistended, normoactive bowel sounds and non-tender Palpation: Negative for guarding or rebound tenderness present Back/Spine no CVA tenderness and no thoracic nor lumbar tenderness Extremity Extremity Narrative: Left lower extremity negative logroll. Knee extensor mecha nism intact. No patellar tenderness. Tender just inferior to the ligament at the insertion. There is no defect. Negative varus and valgus. Skin intact. No ankle tenderness. Neuro vas intact distally. General Extremety ED: Negative for edema or tenderness General Extremity: Negative for edema Neuro oriented x3 and no sensory deficits noted Sensorium / Orientation: awake and alert Skin no rashes or lesions noted and no wounds MDM MDM MDM Narrative Medical decision making narrative: Ice and ibuprofen started. X-ray obtained 4 views left knee reviewed by myself and read by radiology no fracture or dislocation. Reinaldo wrap provided. She is able to ambulate. Declined crutches. She has Tylenol Motrin at home. Continue this as needed. All questions were answered. Radiography Diagnostic Testing: Clinical Impression(s) from Imaging Studies Knee X-Ray 07/07/21 19:08 IMPRESSION: Degenerative arthrosis. Mild anterior soft tissue swelling Electronically Signed: Berhane Gonzalez MD at 20:44 EDT , Service support , Discharge Plan Triage Chief Complaint: Lower Extremity Injury ED Provider: Nikhil Loera Dx/Rx/DC Orders Clinical Impression: Contusion of knee, left Instructions: ED Contusion, Lower Extremity Prescriptions: No Action loratadine [Allergy Relief (loratadine)] 10 MG tablet 10 mg PO DAILY RF: 0 lorazepam 1 MG tablet 1 mg PO BID PRN PRN (Reason: Anxiety) RF: 0 albuterol sulfate [Ventolin HFA] 1 INHALER inhaler 1 puff inhalation Q4H PRN PRN (Reason: Shortness Of Breath) RF: 0 trazodone 100 MG tablet 200 mg PO QHS RF: 0 sumatriptan succinate [Imitrex] 25 MG tablet 25 mg PO .X1 PRN PRN (Reason: Migraine Symptoms) RF: 0 montelukast 10 MG tablet 10 mg PO QHS RF: 0 esomeprazole magnesium [Nexium] 20 MG capsule 20 mg PO DAILY RF: 0 metformin 500 MG tablet 1,000 mg PO BID RF: 0 lamotrigine 200 mg tablet 200 mg PO BID RF: 0 citalopram 40 tablet 40 mg PO DAILY RF: 0 spironolactone 25 MG tablet 25 mg PO DAILY RF: 0 topiramate 100 MG tablet 100 mg PO BID RF: 0 naproxen 500 MG tablet 500 mg PO BID PRN PRN (Reason: Pain Or Fever) RF: 0 aripiprazole 2 mg tablet 2 mg PO QHS RF: 0 glimepiride 2 MG tablet 1 mg PO DAILY RF: 0 lansoprazole 30 MG capsule 30 mg PO DAILY Qty: 30 RF: 0 prednisone 20 MG tablet 60 mg PO DAILY Qty: 12 RF: 0 Primary Care Provider: Verona Villarreal Referrals: Verona Villarreal MD [Primary Care Provider] - 1 Week Disposition Disposition: Home, Self Care Discharge Date/Time: 07/07/21 21:22
--- NOTE | 2021-07-07 19:08 | RAD_ITS ---
STUDY: X-RAY - LEFT KNEE REASON FOR EXAM: Female, 40 years old. FELL GOING UPSTAIRS. LEFT KNEE PAIN. TECHNIQUE: 4 view(s) of the knee. COMPARISON: None. FINDINGS: Normal visualized distal femur. Normal visualized proximal tibia and fibula. Normal proximal tibiofibular articulation. There is no demonstrated fracture. There is moderate degenerative arthrosis of the medial femorotibial compartment with moderate joint space narrowing. There is mild degenerative arthrosis of the lateral femorotibial compartment. Normal patellofemoral articulation. There is a soft tissue prominence in the suprapatellar region suggesting a small volume joint effusion. Mild anterior soft tissue swelling is present. RAD/Knee 4 or More Views IMPRESSION: Degenerative arthrosis. Mild anterior soft tissue swelling Electronically Signed: Berhane Gonzalez MD at 20:44 EDT , Service support ,
[2021-07-07] MEDS: Ibuprofen 600 MG Tablet PO (19:15)
== END 2021-07-07 21:22 | disposition home or self-care (01) ==
PROVIDERS: Emergency Provider Emergency Medicine; PCP Internal Medicine
DX: S80.02XA Contusion of left knee, initial encounter (principal); W10.9XXA Fall (on) (from) unspecified stairs and steps, initial encounter; Y93.9 Activity, unspecified; Y92.9 Unspecified place or not applicable; Y99.9 Unspecified external cause status; E11.9 Type 2 diabetes mellitus without complications; J45.909 Unspecified asthma, uncomplicated; F31.9 Bipolar disorder, unspecified; E66.9 Obesity, unspecified; F17.210 Nicotine dependence, cigarettes, uncomplicated; Z79.84 Long term (current) use of oral hypoglycemic drugs; Z79.899 Other long term (current) drug therapy
CPT/HCPCS: 73564; 99284

== ENCOUNTER 2021-11-19 17:58 | Emergency (ER) | payer MEDICAID, SELFPAY ==
[2021-11-19 17:59] VITALS: BP 125/93; PULSE 104; RESP 18; TEMP 36.6; O2SAT 94; BMI 61.9
--- NOTE | 2021-11-19 18:12 | EDS_ITS ---
HPI History of Present Illness Chief Complaint: Dental Informant: patient Onset/Context/Timing Onset: Yesterday Current Severity: Moderate Maximum Severity: Moderate Narrative Narrative: Patient present secondary to right lower dental pain. Patient states she started noticing pain in her tooth yesterday. Dental pain is not as severe today, however she notes pain down into her jaw and upper neck. No fever or chills. Denies having prior problems with this tooth. [facility] Medical History Asthma Bipolar 1 disorder Diabetes Obesity Home Medications loratadine [Allergy Relief (loratadine)] 10 mg PO DAILY 07/07/13 [History Last Taken 11/07/19] lorazepam 1 mg PO BID PRN PRN 12/11/13 [History Last Taken 06/26/19] albuterol sulfate [Ventolin HFA] 1 puff INHALATION Q4H PRN PRN 03/26/14 [History Last Taken 11/07/19] trazodone 200 mg PO QHS 01/12/15 [History Last Taken 11/07/19] montelukast 10 mg PO QHS 08/10/16 [History Last Taken 11/07/19] sumatriptan succinate [Imitrex] 25 mg PO .X1 PRN PRN 08/10/16 [History Last Taken 06/30/19] esomeprazole magnesium [Nexium] 20 mg PO DAILY 03/07/18 [History Last Taken 11/07/19] aripiprazole 2 mg PO QHS 07/01/19 [History Last Taken 11/07/19] citalopram 40 mg PO DAILY 07/01/19 [History Last Taken 11/07/19] lamotrigine 200 mg PO BID 07/01/19 [History Last Taken 11/07/19] metformin 1,000 mg PO BID 07/01/19 [History Last Taken 11/07/19] naproxen 500 mg PO BID PRN PRN 07/01/19 [History Last Taken Unknown] spironolactone 25 mg PO DAILY 07/01/19 [History Last Taken 11/07/19] topiramate 100 mg PO BID 07/01/19 [History Last Taken 11/07/19] glimepiride 1 mg PO DAILY 11/08/19 [History Last Taken 11/07/19] lansoprazole 30 mg PO DAILY #30 capsule 12/30/20 [Rx Last Taken Unknown] prednisone 60 mg PO DAILY #12 tablet 06/03/21 [Rx Last Taken Unknown] clindamycin HCl 300 mg PO 4X/DAY #80 cap 11/19/21 [Rx Last Taken Unknown] naproxen [Naprosyn] 500 mg PO BID PRN #20 tab 11/19/21 [Rx Last Taken Unknown] Allergy/AdvReac Type Severity Reaction Status Date / Time melatonin Allergy Hives Verified 11/19/21 17:59 Penicillins Allergy Hives Verified 11/19/21 17:59 tramadol Allergy Hives Verified 11/19/21 17:59 Social History Smoking Status: Current every day smoker tobacco type: cigarettes substance use type: does not use ROS ROS ED Constitutional Constitutional ED: Denies chills or fever(s) Eyes Eyes: Denies change in vision ENT ENT ED: Reports other Details: Right lower dental pain/jaw pain ; Denies sore throat Cardiovascular Cardiovascular: Denies chest pain Respiratory/Chest Respiratory/Chest: Denies cough or dyspnea Gastrointestinal Gastrointestinal: Denies abdominal pain, nausea or vomiting Musculoskeletal Musculoskeletal: Denies back pain or neck pain Integumentary Denies rash Neurologic Neurologic: Denies headache(s) Allergic/Immunologic Allergic/Immunologic ED: Denies urticaria EXAM Physical Exam Const Vital Signs: 11/19/21 17:59 Temperature 98 F Temperature Source Temporal Pulse Rate 104 H Respiratory Rate 18 Blood Pressure 125/93 H Blood Pressure Mean 103 Pulse Ox 94 Oxygen Delivery Method Room Air Positive well nourished and well developed General Appearance ED: well developed HEENT Reports moist mucous membranes HEENT Narrative: Right mandibular second premolar tender to palpation. Mild surrounding gum edema. Mild fullness noted in the right inframandibular region. No evidence of Saud's angina. Posterior pharynx examination unremarkable. Eyes PERRL and EOMs intact bilaterally Neck supple Chest Wall inspection of chest normal and palpation of chest normal Resp normal respiratory effort and clear to auscultation bilaterally Cardio regular rate and regular rhythm GI non-tender Palpation: soft Extremity normal to inspection Neuro oriented x3 Sensorium / Orientation: alert Psych mental status grossly normal Skin no rashes or lesions noted MDM [facility] Treatment and Re-Evaluation Comments:: Patient does have a documented allergy to penicillin. She will be treated clindamycin as well as naproxen. She will be given a single dose of [place] here to get on top of pain. Dental clinic list provided for her. Discharge Plan Triage Chief Complaint: Dental ED Provider: Nilda Ricks Dx/Rx/DC Orders Clinical Impression: Odontalgia Instructions: ED Dental Pain Prescriptions: New clindamycin HCl 150 MG capsule 300 mg PO 4X/DAY Qty: 80 RF: 0 naproxen [Naprosyn] 500 mg tablet 500 mg PO BID PRN (Reason: pain) Qty: 20 RF: 0 No Action loratadine [Allergy Relief (loratadine)] 10 MG tablet 10 mg PO DAILY RF: 0 lorazepam 1 MG tablet 1 mg PO BID PRN PRN (Reason: Anxiety) RF: 0 albuterol sulfate [Ventolin HFA] 1 INHALER inhaler 1 puff inhalation Q4H PRN PRN (Reason: Shortness Of Breath) RF: 0 trazodone 100 MG tablet 200 mg PO QHS RF: 0 sumatriptan succinate [Imitrex] 25 MG tablet 25 mg PO .X1 PRN PRN (Reason: Migraine Symptoms) RF: 0 montelukast 10 MG tablet 10 mg PO QHS RF: 0 esomeprazole magnesium [Nexium] 20 MG capsule 20 mg PO DAILY RF: 0 metformin 500 MG tablet 1,000 mg PO BID RF: 0 lamotrigine 200 mg tablet 200 mg PO BID RF: 0 citalopram 40 tablet 40 mg PO DAILY RF: 0 spironolactone 25 MG tablet 25 mg PO DAILY RF: 0 topiramate 100 MG tablet 100 mg PO BID RF: 0 naproxen 500 MG tablet 500 mg PO BID PRN PRN (Reason: Pain Or Fever) RF: 0 aripiprazole 2 mg tablet 2 mg PO QHS RF: 0 glimepiride 2 MG tablet 1 mg PO DAILY RF: 0 lansoprazole 30 MG capsule 30 mg PO DAILY Qty: 30 RF: 0 prednisone 20 MG tablet 60 mg PO DAILY Qty: 12 RF: 0 Primary Care Provider: Verona Villarreal Referrals: Verona Villarreal MD [Primary Care Provider] - Activity Restrictions/Additional Instructions: Dental referral list provided Disposition Disposition: Home, Self Care
[2021-11-19] MEDS: Naproxen 500 MG Tablet PO (18:18)
[2021-11-19] MEDS: Clindamycin HCl 150 MG Capsule 300 MG PO (18:18)
[2021-11-19] MEDS: HYDROcodone Bitartrate/Apap 5/325 Tablet PO (18:18)
== END 2021-11-19 18:24 | disposition home or self-care (01) ==
LOC: ED 18:19
PROVIDERS: Emergency Provider Emergency Medicine; PCP Internal Medicine; Visit Provider Emergency Medicine
DX: K08.89 Other specified disorders of teeth and supporting structures (principal); R68.84 Jaw pain; F31.9 Bipolar disorder, unspecified; E11.9 Type 2 diabetes mellitus without complications; J45.909 Unspecified asthma, uncomplicated; E66.9 Obesity, unspecified; F17.210 Nicotine dependence, cigarettes, uncomplicated; Z79.84 Long term (current) use of oral hypoglycemic drugs; Z79.1 Long term (current) use of non-steroidal anti-inflammatories (NSAID); Z79.52 Long term (current) use of systemic steroids; Z79.899 Other long term (current) drug therapy; Z88.0 Allergy status to penicillin
CPT/HCPCS: 99283

== ENCOUNTER 2021-12-07 14:33 | Emergency (ER) | payer MEDICAID, SELFPAY ==
[2021-12-07 14:35] VITALS: BP 192/98; PULSE 120; RESP 25; TEMP 36.6; O2SAT 97; BMI 61.9
[2021-12-07 14:40] VITALS: O2SAT 98
[2021-12-07 14:42] VITALS: BP 184/93; PULSE 110; PULSE 114; RESP 29; RESP 30; TEMP 37.1; O2SAT 96; O2SAT 97
--- NOTE | 2021-12-07 14:48 | EKG12_ITS ---
Test Reason : SOB Blood Pressure : / mmHG Vent. Rate : 106 BPM Atrial Rate : 106 BPM P-R Int : 160 ms QRS Dur : 068 ms QT Int : 334 ms P-R-T Axes : 035 012 061 degrees QTc Int : 443 ms Sinus tachycardia Nonspecific ST and T wave abnormality Abnormal ECG Confirmed by DONNA CAST, JORDAN ([id number]), editor city BRIANNE YANG ([id number]) on 12/09/2021 8:49:07 AM Referred By: PRAFUL Confirmed By:JORDAN THOMPSON MD
--- NOTE | 2021-12-07 14:49 | ED.VIS.DYS ---
HPI History of Present Illness Chief Complaint: Shortness of Breath Detail of Chief Complaint: Shortness of breath started 2 days ago Informant: patient Narrative Narrative: Patient presents to the emergency department complaint shortness of breath that started 2 days ago. Patient states that her roommate has pneumonia and thinks she gave it to everybody. Patient denies Covid exposures. She has not had the COVID vaccine. She does have history of asthma. Patient has been using her inhaler and helps her just for short time. Her cough is dry. She denies chest pain. She denies recent travel or surgery. She has no history of PE or DVT. [facility] Medical History Asthma Bipolar 1 disorder Diabetes Obesity Home Medications loratadine [Allergy Relief (loratadine)] 10 mg PO DAILY 07/07/13 [History Last Taken 11/07/19] lorazepam 1 mg PO BID PRN PRN 12/11/13 [History Last Taken 06/26/19] albuterol sulfate [Ventolin HFA] 1 puff INHALATION Q4H PRN PRN 03/26/14 [History Last Taken 11/07/19] trazodone 200 mg PO QHS 01/12/15 [History Last Taken 11/07/19] montelukast 10 mg PO QHS 08/10/16 [History Last Taken 11/07/19] sumatriptan succinate [Imitrex] 25 mg PO .X1 PRN PRN 08/10/16 [History Last Taken 06/30/19] esomeprazole magnesium [Nexium] 20 mg PO DAILY 03/07/18 [History Last Taken 11/07/19] aripiprazole 2 mg PO QHS 07/01/19 [History Last Taken 11/07/19] citalopram 40 mg PO DAILY 07/01/19 [History Last Taken 11/07/19] lamotrigine 200 mg PO BID 07/01/19 [History Last Taken 11/07/19] metformin 1,000 mg PO BID 07/01/19 [History Last Taken 11/07/19] naproxen 500 mg PO BID PRN PRN 07/01/19 [History Last Taken Unknown] spironolactone 25 mg PO DAILY 07/01/19 [History Last Taken 11/07/19] topiramate 100 mg PO BID 07/01/19 [History Last Taken 11/07/19] glimepiride 1 mg PO DAILY 11/08/19 [History Last Taken 11/07/19] lansoprazole 30 mg PO DAILY #30 capsule 12/30/20 [Rx Last Taken Unknown] prednisone 60 mg PO DAILY #12 tablet 06/03/21 [Rx Last Taken Unknown] clindamycin HCl 300 mg PO 4X/DAY #80 cap 11/19/21 [Rx Last Taken Unknown] naproxen [Naprosyn] 500 mg PO BID PRN #20 tab 11/19/21 [Rx Last Taken Unknown] benzonatate 200 mg PO TID PRN #20 cap 12/07/21 [Rx Last Taken Unknown] oseltamivir [Tamiflu] 75 mg PO BID 5 Days #10 cap 12/07/21 [Rx Last Taken Unknown] prednisone 20 mg PO BID #10 tab 12/07/21 [Rx Last Taken Unknown] Allergy/AdvReac Type Severity Reaction Status Date / Time melatonin Allergy Hives Verified 12/07/21 14:35 Penicillins Allergy Hives Verified 12/07/21 14:35 tramadol Allergy Hives Verified 12/07/21 14:35 Social History Smoking Status: Former smoker substance use type: does not use ROS ROS ED Constitutional Constitutional ED: Reports systems reviewed and no addt'l complaints, except as documented; Denies body ache(s), change in weight or chills Eyes Eyes: Denies acute decrease in peripheral vision, change in vision, double vision or loss of vision ENT ENT ED: Reports none; Denies ear pain, lip swelling, loss taste/smell, neck pain, otalgia or sore throat Cardiovascular Cardiovascular: Reports none; Denies abdominal pain, chest pain with activity, leg edema, lightheadedness, palpitations, rapid heart rate or syncope Respiratory/Chest Respiratory/Chest: Reports none, cough and dyspnea; Denies change in mental status, dry cough, hemoptysis, shortness of breath at rest or shortness of breath with exertion Gastrointestinal Gastrointestinal: Reports none; Denies abdominal pain, change in stool character, diarrhea, hematemesis, hematochezia, melena, rectal bleeding or vomiting Genitourinary Genitourinary ED: Reports none; Denies abdominal discomfort, anuria, dysuria, genital pain or polyuria Musculoskeletal Musculoskeletal: Reports none; Denies arthralgias, back pain, difficulty walking, extremity pain, muscle weakness or myalgias Integumentary Reports none; Denies abscess or rash Neurologic Neurologic: Reports none; Denies abnormal gait, confusion, focal weakness, frequent falls, headache(s), loss of vision, numbness, paresthesias, radicular pain, vertigo or weakness Psychiatric Psychiatric: Reports systems reviewed and no addt'l complaints, except as documented and none; Denies behavioral changes, confusion, difficulty concentrating, hallucinations, suicidal ideation, tactile hallucinations or visual hallucinations Endocrine Endocrinology: Denies none, cold intolerance, excessive sweating, fatigue or heat intolerance Hematologic/Lymphatic Hematologic/Lymphatic: Reports none; Denies anemia, easy bleeding or easy bruising Allergic/Immunologic Allergic/Immunologic ED: Denies as per HPI, none, lip swelling, mouth swelling, throat swelling, tongue swelling or hives EXAM Physical Exam Const Vital Signs: 12/07/21 14:35 12/07/21 14:40 12/07/21 14:42 Temperature 97.8 F 98.7 F Temperature Source Temporal Temporal Pulse Rate 120 H 114 H Respiratory Rate 25 H 30 H Respiratory Effort Labored Respiratory Depth Normal Respiratory Pattern Tachypnea Blood Pressure 192/98 H 184/93 H Blood Pressure Mean 129 123 Pulse Ox 97 96 Oxygen Delivery Method Room Air Room Air Room Air 12/07/21 15:06 12/07/21 16:22 12/07/21 17:04 Temperature 98.4 F 98.4 F Temperature Source Temporal Temporal Pulse Rate 104 H 84 84 Respiratory Rate 32 H 20 H 20 H Respiratory Effort Respiratory Depth Respiratory Pattern Tachypnea Blood Pressure 146/72 H 147/64 H Blood Pressure Mean 96 91 Pulse Ox 97 Oxygen Delivery Method Room Air Room Air Positive well nourished and well developed General Appearance ED: well developed and NAD HEENT Reports TM's clear and moist mucous membranes normocephalic and atraumatic; Negative for trauma or tenderness Tympanic Membrane ED: Yes TM's clear Eyes PERRL and EOMs intact bilaterally General Eye ED: Negative for pale conjunctiva or scleral icterus Neck no lymphadenopathy, supple and no JVD General: Negative for tenderness Chest Wall inspection of chest normal and palpation of chest normal Chest: Negative for tenderness Resp normal respiratory effort and clear to auscultation bilaterally Resp Narrative: Patient with some faint expiratory wheezes. Mild tachypnea. No accessory muscle use or retractions. Effort and Inspection: Negative for respiratory distress or pain with movement Auscultation: wheezes; Negative for rhonchi or diminished lung sounds Cardio regular rate, regular rhythm, S1 normal heart sound, S2 normal heart sound and no murmurs Peripheral Pulses: pulses 2+ throughout GI normal to inspection, nondistended, normoactive bowel sounds, soft to palpation, non-tender, non-distended and no masses Back/Spine no CVA tenderness and no thoracic nor lumbar tenderness Extremity normal to inspection General Extremety ED: Negative for edema General Extremity: Negative for edema Neuro oriented x3, CN's II-XII intact bilaterally, no sensory deficits noted and gait normal Sensorium / Orientation: awake, alert, oriented to person, oriented to place and oriented to time Motor Exam: strength 5/5 throughout and strength abnormal Psych mental status grossly normal Skin no rashes or lesions noted and no wounds MDM MDM MDM Narrative Medical decision making narrative: IV line established on arrival. Patient was given a DuoNeb aerosol. CBC with differential obtained showed a white count 2.8. Chemistries unremarkable. Glucose was 318. CTA of the chest and abdomen obtained to rule out PE as she did have an elevated D-dimer and was tachypneic. Radiology read CTA chest as no evidence of acute PE or other acute disease process however the IV dye opacification was suboptimal and may miss peripheral PEs. My suspicion for PE is low given that patient has influenza A that could explain her symptomatology. Lab Data Attestation: I reviewed the patient's lab results. Labs: Laboratory Results - last 24 hr 12/07/21 12/07/21 12/07/21 15:00 15:00 15:00 WBC 2.8 L RBC 4.35 Hgb 10.4 L Hct 34.3 L MCV 78.9 L MCH 23.9 L MCHC 30.3 L RDW Std Deviation 56.9 H RDW Coeff of Baltazar 20.0 H Plt Count 104 L MPV 9.0 Immature Gran % (Auto) 0.700 Neut % (Auto) 66.8 Lymph % (Auto) 22.3 [place] % (Auto) 8.1 Eos % (Auto) 1.4 Baso % (Auto) 0.7 Absolute Neuts (auto) 1.9 L Absolute Lymphs (auto) 0.63 L Nucleated RBC % 0 Differential Comment SCANNED D-Dimer Quant (PE/DVT) 0.81 H* Sodium 135 L Potassium 4.1 Chloride 103 Carbon Dioxide 25.0 Anion Gap 7 BUN 9 Creatinine 0.82 Estim Creat Clear Calc 75.44 Est GFR (MDRD) Af Amer 99 Est GFR (MDRD) Non-Af 82 BUN/Creatinine Ratio 10.9 Glucose 318 H Calcium 9.3 Radiography Diagnostic Testing: Clinical Impression(s) from Imaging Studies Chest X-Ray 12/07/21 15:18 IMPRESSION: Normal x-ray examination of the chest. Electronically Signed: Bernardo Barbosa MD at 15:33 EDT , Chest CTA 12/07/21 15:45 IMPRESSION: No demonstrated abnormality. Suboptimal pulmonary arterial opacification. Subsegmental emboli could be missed. Electronically Signed: Kailee Montero MD at 17:04 EDT , 1 view chest ray obtained interpreted by myself as no acute disease process. Radiology in agreement. EKG Initial EKG: Attestation: I personally reviewed and interpreted this EKG as follows: Comments: Sinus rhythm with a ventricular rate of [address] changes Discharge Plan Triage Chief Complaint: Shortness of Breath ED Provider: Dnon Bonilla Dx/Rx/DC Orders Clinical Impression: Acute dyspnea, RAD (reactive airway disease), Influenza A Instructions: ED Dyspnea, ED Influenza (Adult) Prescriptions: New oseltamivir [Tamiflu] 75 mg capsule 75 mg PO BID 5 Days Qty: 10 RF: 0 prednisone 20 mg tablet 20 mg PO BID Qty: 10 RF: 0 benzonatate 200 mg capsule 200 mg PO TID PRN (Reason: cough) Qty: 20 RF: 0 No Action loratadine [Allergy Relief (loratadine)] 10 MG tablet 10 mg PO DAILY RF: 0 lorazepam 1 MG tablet 1 mg PO BID PRN PRN (Reason: Anxiety) RF: 0 albuterol sulfate [Ventolin HFA] 1 INHALER inhaler 1 puff inhalation Q4H PRN PRN (Reason: Shortness Of Breath) RF: 0 trazodone 100 MG tablet 200 mg PO QHS RF: 0 sumatriptan succinate [Imitrex] 25 MG tablet 25 mg PO .X1 PRN PRN (Reason: Migraine Symptoms) RF: 0 montelukast 10 MG tablet 10 mg PO QHS RF: 0 esomeprazole magnesium [Nexium] 20 MG capsule 20 mg PO DAILY RF: 0 metformin 500 MG tablet 1,000 mg PO BID RF: 0 lamotrigine 200 mg tablet 200 mg PO BID RF: 0 citalopram 40 tablet 40 mg PO DAILY RF: 0 spironolactone 25 MG tablet 25 mg PO DAILY RF: 0 topiramate 100 MG tablet 100 mg PO BID RF: 0 naproxen 500 MG tablet 500 mg PO BID PRN PRN (Reason: Pain Or Fever) RF: 0 aripiprazole 2 mg tablet 2 mg PO QHS RF: 0 glimepiride 2 MG tablet 1 mg PO DAILY RF: 0 lansoprazole 30 MG capsule 30 mg PO DAILY Qty: 30 RF: 0 prednisone 20 MG tablet 60 mg PO DAILY Qty: 12 RF: 0 clindamycin HCl 150 MG capsule 300 mg PO 4X/DAY Qty: 80 RF: 0 naproxen [Naprosyn] 500 mg tablet 500 mg PO BID PRN (Reason: pain) Qty: 20 RF: 0 Primary Care Provider: Verona Villarreal Referrals: Verona Villarreal MD [Primary Care Provider] - 3-5 Days Disposition Disposition: Home, Self Care
[2021-12-07] MEDS: Ipratropium/Albuterol Sulfate 3 ML AMPUL.NEB INHALATION (15:05)
[2021-12-07 15:06] VITALS: PULSE 104; RESP 32
[2021-12-07 15:10] LABS: Absolute Lymphocyte Count 0.63 X10^3/uL (0.83-4.51); Absolute Neutrophil Count 1.9 X10^3/uL (2.0-7.7); Basophil# 0.02 X10^3/uL; Basophil% 0.7 % (0-1); Eosinophil# 0.04 X10^3/uL; Eosinophils% 1.4 % (0-5); Hematocrit 34.3 % (37-47); Hemoglobin 10.4 g/dL (12.0-15.0); Lymphocyte # 0.63 X10^3/ul (0.83-4.51); Lymphocyte % 22.3 % (19-41); Mean Corp Hgb Conc 30.3 g/dL (32-36); Mean Corpuscular Hgb 23.9 pg (27.0-32.0); Mean Corpuscular Volume 78.9 fL (81-99); Monocyte# 0.23 X10^3/uL; Monocyte% 8.1 % (0-10); NRBC Flagged by Analyzer 0 % (0-5); Neutrophil # 1.89 X10^3/uL (2.7-7.7); Neutrophil % 66.8 % (47-70); POSITIVE MORPHOLOGY YES; Platelet Count 104 K/mm3 (150-450); RBC Distribution Width SD 56.9 fl (35.1-43.9); Red Blood Count 4.35 M/mm3 (4.2-5.4); White Blood Count 2.8 K/mm3 (4.4-11.0)
[2021-12-07 15:14] LABS: Differential Indicated SCAN CRITERIA MET
--- NOTE | 2021-12-07 15:18 | RAD_ITS ---
STUDY: X-RAY CHEST REASON FOR EXAM: Female, 41 years old. Dyspnea TECHNIQUE: Single AP portable view of the chest. COMPARISON: Comparison is made with prior study dated 06/03/2021. FINDINGS: EKG electrodes are seen. The lungs are clear and expanded. There is no demonstrated pleural abnormality. Normal size heart. Normal mediastinum and misael. Normal visualized pulmonary arteries. Normal visualized aortic arch and descending thoracic aorta. Normal visualized thoracic spine. Normal visualized ribs, clavicles, and shoulders. There is no demonstrated abnormality of the visualized soft tissue structures of the upper abdomen. RAD/Chest 1 View (Portable) IMPRESSION: Normal x-ray examination of the chest. Electronically Signed: Bernardo Barbosa MD at 15:33 EDT ,
[2021-12-07 15:24] LABS: D-Dimer Quantitative (DVT/PE) 0.81 FEU/ug/m (0.27-0.49)
[2021-12-07 15:25] LABS: Anion Gap 7 (5-15); BUN 9 mg/dL (7-18); BUN/Creat Ratio 10.9 RATIO (10-20); Calcium,Total 9.3 mg/dL (8.5-10.1); Chloride 103 mmol/L (98-107); Creatinine, Serum 0.82 mg/dL (0.55-1.02); EST Glomerular Filtration Rate 82 mL/min (>60); Est Glom Filt Rate - Afr Amer 99 mL/min (>60); Estimated Creatinine Clearance 75.44 ml/min; Glucose 318 mg/dL (74-106); Potassium 4.1 mmol/L (3.5-5.1); Sodium Level 135 mmol/L (136-145)
[2021-12-07 15:42] LABS: Differential Comment SCANNED
--- NOTE | 2021-12-07 15:45 | CT_ITS ---
EXAM: CT ANGIOGRAPHY CHEST WITHOUT AND WITH INTRAVENOUS CONTRAST CLINICAL INDICATION: dyspnea, elevated d-dimer TECHNIQUE: Helically acquired angiography images were obtained of the chest without and with intravenous contrast. This CT exam was performed using one or more of the following dose reduction techniques: automated exposure control, adjustment of the mA and/or kV according to patient size, and/or use of iterative reconstruction technique. This report was created using [employer] report generation technology. MIP reconstructed images were created and reviewed. CONTRAST: IV 100mL [id number] COMPARISON: 06/03/2021. FINDINGS: PULMONARY ARTERIES: Unremarkable. Normal in caliber. Pulmonary arterial opacification is suboptimal for evaluation of PE. No central emboli. Subsegmental emboli could be missed. AORTA: Unremarkable. Normal in caliber. No evidence of dissection. GREAT VESSELS OF AORTIC ARCH: Unremarkable. Normal in caliber. No evidence of dissection. LUNGS AND PLEURAL SPACES: Unremarkable. No mass. No consolidation or edema. No pleural effusion or thickening. No pneumothorax. HEART: Unremarkable. Heart size is normal. No pericardial effusion. No signs of right heart strain, ratio of right ventricle to left ventricle measures less than 1. MEDIASTINUM: Unremarkable. No mediastinal or hilar adenopathy. Esophagus is unremarkable. No hiatal hernia. THYROID: Unremarkable. No thyroid lesions. BONES/JOINTS: Unremarkable. No suspicious lytic or blastic abnormality. CT/CTA Chest W/WO Contrast IMPRESSION: No demonstrated abnormality. Suboptimal pulmonary arterial opacification. Subsegmental emboli could be missed. Electronically Signed: Kailee Montero MD at 17:04 EDT Reading Location ID and State: [id number] / Tel , Service support ,
[2021-12-07] MEDS: predniSONE 20 MG Tablet 40 MG PO (16:05)
[2021-12-07 16:22] VITALS: BP 146/72; PULSE 84; RESP 20; TEMP 36.9
[2021-12-07 17:04] VITALS: BP 147/64; PULSE 68; PULSE 84; RESP 20; RESP 23; TEMP 36.9; O2SAT 97
== END 2021-12-07 17:17 | disposition home or self-care (01) ==
PROVIDERS: Emergency Provider Emergency Medicine; PCP Internal Medicine; Visit Provider Emergency Medicine
DX: J10.1 Influenza due to other identified influenza virus with other respiratory manifestations (principal); F31.9 Bipolar disorder, unspecified; E11.9 Type 2 diabetes mellitus without complications; J45.909 Unspecified asthma, uncomplicated; E66.9 Obesity, unspecified; Z79.84 Long term (current) use of oral hypoglycemic drugs; Z79.1 Long term (current) use of non-steroidal anti-inflammatories (NSAID); Z79.899 Other long term (current) drug therapy; Z87.891 Personal history of nicotine dependence
CPT/HCPCS: 71045; 71275; 80048; 85025; 85379; 87428; 93005; 94640; 99285; A4216

== ENCOUNTER 2022-06-01 17:58 | Emergency (ER) | payer MEDICAID, SELFPAY ==
[2022-06-01 18:00] VITALS: BP 158/78; RESP 102; TEMP 37.1; O2SAT 100; BMI 64.9
[2022-06-01 18:06] VITALS: BP 158/78; PULSE 105; RESP 20; TEMP 37.1; O2SAT 100
--- NOTE | 2022-06-01 18:47 | ED.VIS.DYS ---
HPI History of Present Illness Chief Complaint: Asthma Informant: patient Onset/Context/Timing Onset: Days (2) Context: gradual Timing: Continuous Quality: Positive for Wheezing Worsened by: Exertion Relieved by: Rest Associated Symptoms cough, subjective, chills and yellow sputum; Negative for rhinorrhea, post nasal drip, ear pain, fever, sore throat or sweats Chest Pain: Positive for None Narrative Narrative: Patient presents with shortness of breath that has been getting worse over the past 2 days. Patient states it is gradually getting worse. Patient states it is worse with any exertion. Patient states she can only take a couple steps before she is short of breath. Patient states it is better with rest. Patient states her albuterol inhaler and nebulizers have not been working as well as normal. Patient states she feels like she is wheezing. Patient states she is coughing up some yellow sputum. Patient admits to some subjective chills but denies any fevers. Patient denies any chest pain. Patient denies any sore throat or rhinorrhea. Prior similar symptoms: Yes PFSH PFSH Medical History (Updated 06/01/22 @ 20:[address] Miles Dhaliwal, DO) Asthma Bipolar 1 disorder COPD (chronic obstructive pulmonary disease) Diabetes Obesity Home Medications loratadine 10 mg tablet (Allergy Relief (loratadine)) 10 mg PO DAILY Allergies 07/07/13 [History Last Taken 11/07/19] lorazepam 1 mg tablet 1 mg PO BID PRN PRN Anxiety 12/11/13 [History Last Taken 06/26/19] albuterol sulfate 90 mcg/actuation aerosol inhaler (Ventolin HFA) 1 puff inhalation Q4H PRN PRN Shortness Of Breath 03/26/14 [History Last Taken 11/07/19] trazodone 100 mg tablet 300 mg PO QHS depression 01/12/15 [History Last Taken 11/07/19] montelukast 10 mg tablet 10 mg PO QHS 08/10/16 [History Last Taken 11/07/19] sumatriptan succinate 25 mg tablet (Imitrex) 25 mg PO .X1 PRN PRN Migraine Symptoms 08/10/16 [History Last Taken 06/30/19] aripiprazole 2 mg tablet 5 mg PO QHS 07/01/19 [History Last Taken 11/07/19] citalopram 40 mg tablet 40 mg PO DAILY 10/15/19 [History Last Taken 11/07/19] lamotrigine 200 mg tablet 200 mg PO BID 07/01/19 [History Last Taken 11/07/19] metformin 500 mg tablet 1,000 mg PO BID dm 07/01/19 [History Last Taken 11/07/19] naproxen 500 mg tablet 500 mg PO BID PRN PRN Pain Or Fever 07/01/19 [History Last Taken Unknown] topiramate 100 mg tablet 100 mg PO BID 07/01/19 [History Last Taken 11/07/19] glimepiride 2 mg tablet 4 mg PO DAILY 11/08/19 [History Last Taken 11/07/19] lansoprazole 30 mg capsule,delayed release 30 mg PO DAILY #30 CAPSULES 12/30/20 [Rx Last Taken Unknown] metformin 500 mg tablet 500 mg PO LUNCH 06/01/22 [History Last Taken Unknown] prednisone 20 mg tablet 60 mg PO DAILY #15 TABLETS 06/01/22 [Rx Last Taken Unknown] Allergy/AdvReac Type Severity Reaction Status Date / Time melatonin Allergy Hives Verified 06/01/22 17:59 Penicillins Allergy Hives Verified 06/01/22 17:59 Surgical History (Updated 06/01/22 @ 18:[address] Miles Dhaliwal DO) History of herniorrhaphy Social History Smoking Status: Current every day smoker tobacco type: cigarettes substance use type: does not use ROS ROS ED Constitutional Constitutional ED: Denies chills or fever(s) Eyes Eyes: Denies blurry vision or change in vision ENT ENT ED: Denies rhinorrhea or sore throat Cardiovascular Cardiovascular: Denies chest pain or palpitations Respiratory/Chest Respiratory/Chest: Reports cough, dyspnea and sputum Gastrointestinal Gastrointestinal: Reports nausea; Denies vomiting Genitourinary Genitourinary ED: Denies dysuria or hematuria Musculoskeletal Musculoskeletal: Denies back pain or neck pain Integumentary Denies abscess or rash Neurologic Neurologic: Denies headache(s) or weakness Allergic/Immunologic Allergic/Immunologic ED: Denies mouth swelling or urticaria EXAM Physical Exam Const Vital Signs: 06/01/22 18:00 06/01/22 18:00 06/01/22 18:06 Temperature 98.8 F 98.8 F Temperature Source Oral Oral Pulse Rate 105 H Respiratory Rate 102 H 20 H Respiratory Effort Short of Breath Respiratory Depth Normal Respiratory Pattern Normal Blood Pressure 158/78 H 158/78 H Blood Pressure Mean 104 104 Pulse Ox 100 100 Oxygen Delivery Method Room Air Room Air Room Air 06/01/22 19:03 Temperature Temperature Source Pulse Rate 106 H Respiratory Rate 22 H Respiratory Effort Respiratory Depth Respiratory Pattern Tachypnea Blood Pressure Blood Pressure Mean Pulse Ox Oxygen Delivery Method Positive well nourished, well developed and obese General Appearance ED: well developed and NAD Nutritional Appearance: obese HEENT Reports moist mucous membranes Neck supple, no meningeal signs and no JVD Resp normal respiratory effort Auscultation: wheezes throughout Cardio regular rhythm Rate: tachycardic GI non-tender and non-distended Palpation: soft Neuro oriented x3, CN's II-XII intact bilaterally and no sensory deficits noted Sensorium / Orientation: alert Motor Exam: strength 5/5 throughout Psych mental status grossly normal MDM MDM MDM Narrative Medical decision making narrative: Patient was given a DuoNeb aerosol here. CBC shows a hemoglobin of 8.3 hematocrit 30.7. Platelets were 100. Comprehensive metabolic profile showed a glucose of 161 but was otherwise within normal limits. PA and lateral chest x-ray was obtained. There are 2 views. On my interpretation, lung [place] are clear. There is normal cardiac silhouette. Bony thorax is normal. There is no acute process noted. Radiologist also interpreted the x-ray and agrees. Patient is feeling better on reevaluation. Patient was advised of her findings. Patient was given a prescription for prednisone. Patient was instructed to follow-up with her primary care physician in 3 to 5 days. Patient understood and was agreeable with the plan. All questions were answered. Lab Data Attestation: I reviewed the patient's lab results. Labs: Laboratory Results - last 24 hr 06/01/22 06/01/22 19:26 19:26 WBC 3.7 L RBC 4.12 L Hgb 8.3 L Hct 30.7 L MCV 74.5 L MCH 20.1 L MCHC 27.0 L RDW Std Deviation 58.4 H RDW Coeff of Baltazar 21.9 H Plt Count 100 L MPV 9.3 Immature Gran % (Auto) 0.300 Neut % (Auto) 64.6 Lymph % (Auto) 26.3 [place] % (Auto) 6.0 Eos % (Auto) 2.5 Baso % (Auto) 0.3 Absolute Neuts (auto) 2.4 Absolute Lymphs (auto) 0.96 Nucleated RBC % 0 Differential Comment SCANNED Hypochromasia 1+ Anisocytosis 2+ Microcytosis 1+ Macrocytosis 1+ Sodium 142 Potassium 3.7 Chloride 111 H Carbon Dioxide 25.0 Anion Gap 6 BUN 8 Creatinine 0.71 Estim Creat Clear Calc 87.13 Est GFR (MDRD) Af Amer 118 Est GFR (MDRD) Non-Af 97 BUN/Creatinine Ratio 11.3 Glucose 161 H Calcium 8.8 Total Bilirubin 0.40 AST 34 ALT 38 Alkaline Phosphatase 110 Total Protein 7.5 Albumin 3.3 Globulin 4.2 Albumin/Globulin Ratio 0.8 L Radiography Chest X-Ray - ED: 2 View, Read by ED Physician, Read by Radiologist and No Acute Disease Diagnostic Testing: Clinical Impression(s) from Imaging Studies Chest X-Ray 06/01/22 19:27 IMPRESSION: No acute cardiopulmonary abnormality. Electronically Signed: Jesse Huitron MD at 20:09 EDT , Discharge Plan Triage Chief Complaint: Asthma ED Provider: Miles Dhaliwal Dx/Rx/DC Orders Clinical Impression: Asthma exacerbation with COPD (chronic obstructive pulmonary disease), Super-super obese, Anemia Instructions: ED Asthma, Acute (Adult) Prescriptions: New prednisone 20 MG tablet 60 mg PO DAILY Qty: 15 0RF No Action loratadine [Allergy Relief (loratadine)] 10 MG tablet 10 mg PO DAILY lorazepam 1 MG tablet 1 mg PO BID PRN PRN (Reason: Anxiety) albuterol sulfate [Ventolin HFA] 1 INHALER inhaler 1 puff inhalation Q4H PRN PRN (Reason: Shortness Of Breath) trazodone 100 MG tablet 300 mg PO QHS sumatriptan succinate [Imitrex] 25 MG tablet 25 mg PO .X1 PRN PRN (Reason: Migraine Symptoms) montelukast 10 MG tablet 10 mg PO QHS metformin 500 MG tablet 1,000 mg PO BID Label Comments: TAKE 2 TABLETS TWICE DAILY WITH meals lamotrigine 200 mg tablet 200 mg PO BID Label Comments: 1 tablet twice a day citalopram 40 tablet 40 mg PO DAILY topiramate 100 MG tablet 100 mg PO BID Label Comments: TAKE 1 TABLET TWICE DAILY naproxen 500 MG tablet 500 mg PO BID PRN PRN (Reason: Pain Or Fever) Label Comments: TAKE 1 TABLET TWICE DAILY WITH FOOD NEEDED FOR PAIN /inflammation aripiprazole 2 mg tablet 5 mg PO QHS Label Comments: Take 1 tablet by mouth once a day glimepiride 2 MG tablet 4 mg PO DAILY lansoprazole 30 MG capsule 30 mg PO DAILY Qty: 30 0RF metformin 500 mg Tablet 500 mg PO LUNCH Primary Care Provider: Verona Villarreal Referrals: Verona Villarreal MD [Primary Care Provider] - 3-5 Days Disposition Disposition: Home, Self Care
[2022-06-01] MEDS: Ipratropium/Albuterol Sulfate 3 ML AMPUL.NEB INHALATION (19:02)
[2022-06-01 19:03] VITALS: PULSE 106; RESP 22
--- NOTE | 2022-06-01 19:27 | RAD_ITS ---
EXAM: XR CHEST, 2 VIEWS CLINICAL INDICATION: Dyspnea TECHNIQUE: Frontal and lateral views of the chest. This report was created using [employer] report generation technology. COMPARISON: 12/07/2021. FINDINGS: LUNGS AND PLEURAL SPACES: Unremarkable. No consolidation or edema. No pneumothorax. No effusion. HEART: Unremarkable. Cardiac silhouette not enlarged. MEDIASTINUM: Central airways and mediastinal contour are unremarkable. BONES/JOINTS: Unremarkable. SOFT TISSUES: Unremarkable. RAD/Chest PA and Lateral IMPRESSION: No acute cardiopulmonary abnormality. Electronically Signed: Jesse Huitron MD at 20:09 EDT ,
[2022-06-01 19:41] LABS: Absolute Lymphocyte Count 0.96 X10^3/uL (0.83-4.51); Absolute Neutrophil Count 2.4 X10^3/uL (2.0-7.7); Basophil# 0.01 X10^3/uL; Basophil% 0.3 % (0-1); Eosinophil# 0.09 X10^3/uL; Eosinophils% 2.5 % (0-5); Hematocrit 30.7 % (37-47); Hemoglobin 8.3 g/dL (12.0-15.0); Lymphocyte # 0.96 X10^3/ul (0.83-4.51); Lymphocyte % 26.3 % (19-41); Mean Corpuscular Hgb 20.1 pg (27.0-32.0); Mean Corpuscular Volume 74.5 fL (81-99); Mean Platelet Vol. 9.3 fl (6.2-12.0); Monocyte# 0.22 X10^3/uL; NRBC Flagged by Analyzer 0 % (0-5); Neutrophil # 2.36 X10^3/uL (2.7-7.7); Neutrophil % 64.6 % (47-70); POSITIVE MORPHOLOGY YES; Platelet Count 100 K/mm3 (150-450); RBC Distribution Width CV 21.9 % (11.6-14.6); RBC Distribution Width SD 58.4 fl (35.1-43.9); Red Blood Count 4.12 M/mm3 (4.2-5.4); White Blood Count 3.7 K/mm3 (4.4-11.0)
[2022-06-01 19:46] LABS: Differential Indicated SCAN CRITERIA MET
[2022-06-01 20:04] LABS: Differential Comment SCANNED
[2022-06-01 20:05] LABS: Anisocytosis 2+; Hypochromasia 1+; Macrocytosis 1+; Microcytosis 1+
[2022-06-01 20:15] LABS: ALB/GLOB Ratio 0.8 RATIO (0.9-2.4); AST(SGOT) 34 U/L (15-37); Alanine Aminotransfer ALT/SGPT 38 U/L (13-56); Albumin, Serum 3.3 g/dL (3.2-5.0); Alkaline Phosphatase 110 U/L (45-117); Anion Gap 6 (5-15); BUN 8 mg/dL (7-18); BUN/Creat Ratio 11.3 RATIO (10-20); Calcium,Total 8.8 mg/dL (8.5-10.1); Chloride 111 mmol/L (98-107); Creatinine, Serum 0.71 mg/dL (0.55-1.02); EST Glomerular Filtration Rate 97 mL/min (>60); Est Glom Filt Rate - Afr Amer 118 mL/min (>60); Estimated Creatinine Clearance 87.13 ml/min; Globulin 4.2 g/dL (2.2-4.2); Glucose 161 mg/dL (74-106); Potassium 3.7 mmol/L (3.5-5.1); Protein, Total 7.5 g/dL (6.4-8.2); Sodium Level 142 mmol/L (136-145)
[2022-06-01 20:51] VITALS: BP 138/90; PULSE 80; RESP 18; O2SAT 99
== END 2022-06-01 21:29 | disposition home or self-care (01) ==
PROVIDERS: Emergency Provider Emergency Medicine; PCP Internal Medicine; Visit Provider Emergency Medicine
DX: J44.1 Chronic obstructive pulmonary disease with (acute) exacerbation (principal); E11.9 Type 2 diabetes mellitus without complications; F17.210 Nicotine dependence, cigarettes, uncomplicated; R68.83 Chills (without fever); D64.9 Anemia, unspecified; E66.9 Obesity, unspecified; F32.A Depression, unspecified; F41.9 Anxiety disorder, unspecified; Z79.52 Long term (current) use of systemic steroids; Z79.84 Long term (current) use of oral hypoglycemic drugs; Z79.899 Other long term (current) drug therapy
CPT/HCPCS: 71046; 80053; 85025; 87428; 94640; 99285; A4216

== ENCOUNTER 2022-07-25 14:56 | Emergency (ER) | payer MEDICAID, SELFPAY ==
[2022-07-25 14:57] VITALS: BP 135/78; PULSE 106; RESP 18; TEMP 35.9; O2SAT 100; BMI 62.7
[2022-07-25 15:20] VITALS: BP 135/78; PULSE 106; RESP 18; TEMP 35.9; O2SAT 100
--- NOTE | 2022-07-25 15:24 | EDS_ITS ---
HPI History of Present Illness Chief Complaint: Abscess Detail of Chief Complaint: Abscess right lower abdominal wall Informant: patient Onset/Context/Timing Onset: Days (Spontaneously ruptured yesterday) Context: Sudden Onset Timing: Continuous Quality: Abscess right lower quadrant abdominal wall Location: See documented Current Severity: Mild Maximum Severity: Moderate Worsened by: History of diabetes Relieved by: Spontaneously ruptured Associated Symptoms Associated Symptoms: Shaking chills Narrative Narrative: Patient is a 41-year-old with history of type 2 diabetes, depression, migraine headaches, anxiety who presents with abscess that spontaneously ruptured. There is mild erythema around the ruptured abscess. Patient has dermatologic changes of the panniculus that are chronic. She states her last blood sugar check was 200. She states her last A1c was 12. She also complains of vaginal yeast infection. She denies documented or subjective fever. She denies headache, visual, ocular auditory symptoms. She denies cardiac or respiratory symptoms. She does endorse frequency and nocturia. She denies dysuria hematuria. Prior similar symptoms: No Recent Illness/Hospitalization: No PFSH PFSH Medical History Asthma Bipolar 1 disorder COPD (chronic obstructive pulmonary disease) Diabetes Obesity Home Medications loratadine 10 mg tablet (Allergy Relief (loratadine)) 10 mg PO DAILY Allergies 07/07/13 [History Last Taken 11/07/19] lorazepam 1 mg tablet 1 mg PO BID PRN PRN Anxiety 12/11/13 [History Last Taken 06/26/19] albuterol sulfate 90 mcg/actuation aerosol inhaler (Ventolin HFA) 1 puff inhalation Q4H PRN PRN Shortness Of Breath 03/26/14 [History Last Taken 11/07/19] trazodone 100 mg tablet 300 mg PO QHS depression 01/12/15 [History Last Taken 11/07/19] montelukast 10 mg tablet 10 mg PO QHS 08/10/16 [History Last Taken 11/07/19] sumatriptan succinate 25 mg tablet (Imitrex) 25 mg PO .X1 PRN PRN Migraine Symptoms 08/10/16 [History Last Taken 06/30/19] aripiprazole 2 mg tablet 5 mg PO QHS 07/01/19 [History Last Taken 11/07/19] citalopram 40 mg tablet 40 mg PO DAILY 07/01/19 [History Last Taken 11/07/19] lamotrigine 200 mg tablet 200 mg PO BID 07/01/19 [History Last Taken 11/07/19] metformin 500 mg tablet 1,000 mg PO BID dm 07/01/19 [History Last Taken 11/07/19] naproxen 500 mg tablet 500 mg PO BID PRN PRN Pain Or Fever 07/01/19 [History Last Taken Unknown] topiramate 100 mg tablet 100 mg PO BID 07/01/19 [History Last Taken 11/07/19] glimepiride 2 mg tablet 4 mg PO DAILY 11/08/19 [History Last Taken 11/07/19] lansoprazole 30 mg capsule,delayed release 30 mg PO DAILY #30 CAPSULES 12/30/20 [Rx Last Taken Unknown] metformin 500 mg tablet 500 mg PO LUNCH 06/01/22 [History Last Taken Unknown] prednisone 20 mg tablet 60 mg PO DAILY #15 TABLETS 06/01/22 [Rx Last Taken Unknown] Allergy/AdvReac Type Severity Reaction Status Date / Time melatonin Allergy Hives Verified 07/25/22 14:57 Penicillins Allergy Hives Verified 07/25/22 14:57 Surgical History History of herniorrhaphy Social History (Updated 07/25/22 @ 15:[address] River Philip MD) household members: none Smoking Status: Current every day smoker tobacco type: cigarettes substance use type: does not use ROS ROS ED Constitutional Constitutional ED: Reports chills; Denies fever(s), subjective, sweats or weight loss Eyes Eyes: Denies blurry vision, change in vision or diplopia ENT ENT ED: Denies ear pain, rhinorrhea or sore throat Cardiovascular Cardiovascular: Denies chest pain or palpitations Respiratory/Chest Respiratory/Chest: Denies cough, dyspnea or dyspnea on exertion Gastrointestinal Gastrointestinal: Denies abdominal pain, diarrhea, nausea or vomiting Genitourinary Genitourinary ED: Reports urinary frequency; Denies dysuria or hematuria Musculoskeletal Musculoskeletal: Denies arthralgias, back pain, myalgias or neck pain Integumentary Reports abscess and rash; Denies Abrasions Neurologic Neurologic: Denies headache(s), paresthesias or weakness Psychiatric Psychiatric: Reports anxiety and depression; Denies suicidal ideation Endocrine Endocrinology: Denies polydipsia or polyphagia Hematologic/Lymphatic Hematologic/Lymphatic: Reports none EXAM Physical Exam Const Vital Signs: 07/25/22 14:57 07/25/22 15:20 Temperature 96.7 F L 96.7 F L Temperature Source Temporal Temporal Pulse Rate 106 H 106 H Respiratory Rate 18 18 Blood Pressure 135/78 H 135/78 H Blood Pressure Mean 97 97 Pulse Ox 100 100 Oxygen Delivery Method Room Air Room Air Positive well nourished, well developed and obese General Appearance ED: well developed, NAD and pallor; Negative for cyanotic or diaphoretic Nutritional Appearance: obese HEENT Reports moist mucous membranes HEENT Narrative: Head is atraumatic no cephalic. Ears normal. Nares patent. Uvula midline. No deviation or protrusion. There is no erythema or exudate of posterior pharynx. Eyes PERRL and EOMs intact bilaterally General Eye ED: Yes pale conjunctiva and scleral icterus Neck no lymphadenopathy, supple and no JVD Resp normal respiratory effort and clear to auscultation bilaterally Cardio regular rate, regular rhythm, S1 normal heart sound, S2 normal heart sound and no murmurs GI normal to inspection, nondistended, normoactive bowel sounds, non-distended, hepatosplenomegaly and no masses; Negative for non-tender GI Narrative: The tenderness is around the ruptured abscess. There is also evidence of contact dermatitis due to the tape she was using. Auscultation: hypoactive bowel sounds Palpation: soft Back/Spine no CVA tenderness Neuro oriented x3, CN's II-XII intact bilaterally and no sensory deficits noted Psych Mood & Affect: depressed and tearful Skin No no rashes or lesions noted, No no wounds and skin turgor normal General Skin Exam: pallor; Negative for jaundice MDM MDM MDM Narrative Medical decision making narrative: Since patient has poorly controlled diabetic we will obtain basic metabolic panel to assess glucose/CO2 anion gap. No function since she will require antibiotics in case the dose needs to be adjusted. CBC to assess white count and differential. Also to assess H&H since she appears pale. Lab Data Attestation: I reviewed the patient's lab results. Lab results narrative: Patient has chronic neutropenia. Since there is no evidence of cellulitis and abscess has spontaneously ruptured we will have nurse teach her how to do wet-to-dry dressing changes and she will be discharged to home. Blood sugar is elevated 176. CO2 and anion gap are normal. Labs: Laboratory Results - last 24 hr 07/25/22 07/25/22 15:45 15:45 WBC 4.3 L RBC 4.28 Hgb 8.2 L Hct 30.2 L MCV 70.6 L MCH 19.2 L MCHC 27.2 L RDW Std Deviation 55.8 H RDW Coeff of Baltazar 22.5 H Plt Count 97 L MPV 9.0 Immature Gran % (Auto) 0.200 Neut % (Auto) 72.8 H Lymph % (Auto) 19.8 [place] % (Auto) 5.4 Eos % (Auto) 1.6 Baso % (Auto) 0.2 Absolute Neuts (auto) 3.1 Absolute Lymphs (auto) 0.85 Nucleated RBC % 0 Platelet Estimate SLT DEC RBC Morphology N CHROM Hypochromasia 1+ Anisocytosis RARE Microcytosis 1+ Sodium 139 Potassium 3.8 Chloride 112 H Carbon Dioxide 23.0 Anion Gap 4 L BUN 6 L Creatinine 0.62 Estim Creat Clear Calc 99.78 Est GFR (MDRD) Af Amer 136 Est GFR (MDRD) Non-Af 112 BUN/Creatinine Ratio 9.6 L Glucose 176 H Calcium 8.6 Discharge Plan Triage Chief Complaint: Abscess ED Provider: River Philip Dx/Rx/DC Orders Clinical Impression: Subcutaneous abscess, Hyperglycemia due to type 2 diabetes mellitus Prescriptions: No Action loratadine [Allergy Relief (loratadine)] 10 MG tablet 10 mg PO DAILY lorazepam 1 MG tablet 1 mg PO BID PRN PRN (Reason: Anxiety) albuterol sulfate [Ventolin HFA] 1 INHALER inhaler 1 puff inhalation Q4H PRN PRN (Reason: Shortness Of Breath) trazodone 100 MG tablet 300 mg PO QHS sumatriptan succinate [Imitrex] 25 MG tablet 25 mg PO .X1 PRN PRN (Reason: Migraine Symptoms) montelukast 10 MG tablet 10 mg PO QHS metformin 500 MG tablet 1,000 mg PO BID Label Comments: TAKE 2 TABLETS TWICE DAILY WITH meals lamotrigine 200 mg tablet 200 mg PO BID Label Comments: 1 tablet twice a day citalopram 40 tablet 40 mg PO DAILY topiramate 100 MG tablet 100 mg PO BID Label Comments: TAKE 1 TABLET TWICE DAILY naproxen 500 MG tablet 500 mg PO BID PRN PRN (Reason: Pain Or Fever) Label Comments: TAKE 1 TABLET TWICE DAILY WITH FOOD NEEDED FOR PAIN /inflammation aripiprazole 2 mg tablet 5 mg PO QHS Label Comments: Take 1 tablet by mouth once a day glimepiride 2 MG tablet 4 mg PO DAILY lansoprazole 30 MG capsule 30 mg PO DAILY Qty: 30 0RF metformin 500 mg Tablet 500 mg PO LUNCH prednisone 20 MG tablet 60 mg PO DAILY Qty: 15 0RF Primary Care Provider: Verona Villarreal Referrals: Verona Villarreal MD [Primary Care Provider] - Disposition Disposition: Home, Self Care
[2022-07-25 15:58] LABS: Absolute Lymphocyte Count 0.85 X10^3/uL (0.83-4.51); Absolute Neutrophil Count 3.1 X10^3/uL (2.0-7.7); Basophil# 0.01 X10^3/uL; Basophil% 0.2 % (0-1); Eosinophil# 0.07 X10^3/uL; Eosinophils% 1.6 % (0-5); Hematocrit 30.2 % (37-47); Hemoglobin 8.2 g/dL (12.0-15.0); Lymphocyte # 0.85 X10^3/ul (0.83-4.51); Lymphocyte % 19.8 % (19-41); Mean Corp Hgb Conc 27.2 g/dL (32-36); Mean Corpuscular Hgb 19.2 pg (27.0-32.0); Mean Corpuscular Volume 70.6 fL (81-99); Monocyte# 0.23 X10^3/uL; Monocyte% 5.4 % (0-10); NRBC Flagged by Analyzer 0 % (0-5); Neutrophil # 3.12 X10^3/uL (2.7-7.7); Neutrophil % 72.8 % (47-70); POSITIVE COUNT YES; POSITIVE MORPHOLOGY YES; Platelet Count 97 K/mm3 (150-450); RBC Distribution Width CV 22.5 % (11.6-14.6); RBC Distribution Width SD 55.8 fl (35.1-43.9); Red Blood Count 4.28 M/mm3 (4.2-5.4); White Blood Count 4.3 K/mm3 (4.4-11.0)
[2022-07-25 16:15] LABS: Anion Gap 4 (5-15); BUN 6 mg/dL (7-18); BUN/Creat Ratio 9.6 RATIO (10-20); Calcium,Total 8.6 mg/dL (8.5-10.1); Chloride 112 mmol/L (98-107); Creatinine, Serum 0.62 mg/dL (0.55-1.02); EST Glomerular Filtration Rate 112 mL/min (>60); Est Glom Filt Rate - Afr Amer 136 mL/min (>60); Estimated Creatinine Clearance 99.78 ml/min; Glucose 176 mg/dL (74-106); Potassium 3.8 mmol/L (3.5-5.1); Sodium Level 139 mmol/L (136-145)
[2022-07-25 16:27] LABS: Differential Indicated SCAN CRITERIA MET
[2022-07-25 16:38] LABS: Anisocytosis RARE; Platelet Estimate SLT DEC (ADEQ); Red Cell Morphology N CHROM NORMAL (NORM C&C)
[2022-07-25 16:39] LABS: Hypochromasia 1+; Microcytosis 1+
[2022-07-25 17:31] VITALS: PULSE 67
== END 2022-07-25 17:32 | disposition home or self-care (01) ==
PROVIDERS: Emergency Provider Emergency Medicine; PCP Internal Medicine; Visit Provider Emergency Medicine
DX: L02.211 Cutaneous abscess of abdominal wall (principal); J44.9 Chronic obstructive pulmonary disease, unspecified; F31.9 Bipolar disorder, unspecified; E11.65 Type 2 diabetes mellitus with hyperglycemia; F41.9 Anxiety disorder, unspecified; B37.31 Acute candidiasis of vulva and vagina; F17.210 Nicotine dependence, cigarettes, uncomplicated; Z79.84 Long term (current) use of oral hypoglycemic drugs; Z79.899 Other long term (current) drug therapy
CPT/HCPCS: 80048; 85025; 99283; A4216

== ENCOUNTER 2022-09-07 21:26 | Emergency (ER) | payer MEDICAID, SELFPAY ==
[2022-09-07 21:27] VITALS: BP 182/99; PULSE 114; RESP 30; TEMP 36.6; O2SAT 96; BMI 69.1
[2022-09-07 21:29] VITALS: BP 162/97; PULSE 113; RESP 25; O2SAT 95
[2022-09-07 21:31] VITALS: O2SAT 96
[2022-09-07 21:32] VITALS: BP 162/97; PULSE 109; RESP 25; TEMP 36.6; O2SAT 96
--- NOTE | 2022-09-07 21:51 | ED.VIS.DYS ---
HPI History of Present Illness Chief Complaint: Shortness of Breath Informant: patient Narrative Narrative: Presents with dyspnea that is been going on for about 4 or 5 days. She states she really does not have much of a cough at all. No sputum production. No chest pain. No fevers chills myalgias. She has a history of asthma. She states she can hear her wheezing. But she is out of her inhaler. She has a nebulizer with albuterol but she states the nebulizer machine does not appear to be mixing her medications. It is not actually aerosolizing them so its not working at all. On review of systems I also find out that she has had lower extremity edema. But this has been going on for many months. She saw her doctor about it. She was started on Lasix but states she is not taking it because her only functional bathroom is in the basement and that is too hard for her to walk up and down frequently. She denies travel surgery or personal family history of DVT or PE. She is not having unilateral leg swelling or pain. She has bilateral equal swelling that has been present for many months. She is not having chest pain, pleuritic pain or hemoptysis. No syncope. [facility] Medical History Anxiety Asthma Bipolar 1 disorder COPD (chronic obstructive pulmonary disease) Diabetes Obesity Sleep apnea Home Medications loratadine 10 mg tablet (Allergy Relief (loratadine)) 10 mg PO DAILY Allergies 07/07/13 [History Last Taken 11/07/19] lorazepam 1 mg tablet 1 mg PO BID PRN PRN Anxiety 12/11/13 [History Last Taken 06/26/19] albuterol sulfate 90 mcg/actuation aerosol inhaler (Ventolin HFA) 1 puff inhalation Q4H PRN PRN Shortness Of Breath 03/26/14 [History Last Taken 11/07/19] trazodone 100 mg tablet 300 mg PO QHS depression 01/12/15 [History Last Taken 11/07/19] montelukast 10 mg tablet 10 mg PO QHS 08/10/16 [History Last Taken 11/07/19] sumatriptan succinate 25 mg tablet (Imitrex) 25 mg PO .X1 PRN PRN Migraine Symptoms 08/10/16 [History Last Taken 06/30/19] aripiprazole 2 mg tablet 5 mg PO QHS 07/01/19 [History Last Taken 11/07/19] citalopram 40 mg tablet 40 mg PO DAILY 07/01/19 [History Last Taken 11/07/19] lamotrigine 200 mg tablet 200 mg PO BID 07/01/19 [History Last Taken 11/07/19] metformin 500 mg tablet 1,000 mg PO BID dm 07/01/19 [History Last Taken 11/07/19] naproxen 500 mg tablet 500 mg PO BID PRN PRN Pain Or Fever 07/01/19 [History Last Taken Unknown] topiramate 100 mg tablet 100 mg PO BID 07/01/19 [History Last Taken 11/07/19] glimepiride 2 mg tablet 4 mg PO DAILY 11/08/19 [History Last Taken 11/07/19] lansoprazole 30 mg capsule,delayed release 30 mg PO DAILY #30 CAPSULES 12/30/20 [Rx Last Taken Unknown] metformin 500 mg tablet 500 mg PO LUNCH 06/01/22 [History Last Taken Unknown] acetaminophen 300 mg-codeine 30 mg tablet 1 tab PO Q6H PRN PRN Pain 09/07/22 [History Last Taken Unknown] albuterol sulfate 90 mcg/actuation aerosol inhaler (Ventolin HFA) 2 puff inhalation Q4H PRN PRN Wheezing ##1 09/07/22 [Rx Last Taken Unknown] ferrous sulfate 325 mg (65 mg iron) tablet (FeroSul) 325 mg PO TID #90 tabs 09/07/22 [Rx Last Taken Unknown] furosemide 20 mg tablet 20 mg PO DAILY 09/07/22 [History Last Taken Unknown] potassium chloride 10 mEq capsule,extended release 10 meq PO DAILY 09/07/22 [History Last Taken Unknown] prednisone 20 mg tablet 60 mg PO DAILY #15 tabs 09/07/22 [Rx Last Taken Unknown] Allergy/AdvReac Type Severity Reaction Status Date / Time melatonin Allergy Hives Verified 07/25/22 14:57 Penicillins Allergy Hives Verified 07/25/22 14:57 Surgical History History of herniorrhaphy Social History household members: none Smoking Status: Current every day smoker tobacco type: cigarettes substance use type: does not use ROS ROS ED Constitutional Constitutional ED: Denies chills, fever(s) or sweats Eyes Eyes: Denies change in vision ENT ENT ED: Denies rhinorrhea or sore throat Cardiovascular Cardiovascular: Denies chest pain, palpitations or racing heartbeat Respiratory/Chest Respiratory/Chest: Reports dyspnea and dyspnea on exertion; Denies cough or sputum Gastrointestinal Gastrointestinal: Denies abdominal pain, nausea or vomiting Musculoskeletal Musculoskeletal: Denies myalgias Integumentary Denies rash Neurologic Neurologic: Reports other Details: Patient has chronic headaches. She states she has continual migraine but this is no different than normal. ; Denies paresthesias Psychiatric Psychiatric: Reports anxiety Endocrine Endocrinology: Denies polydipsia or polyuria Hematologic/Lymphatic Hematologic/Lymphatic: Denies easy bleeding or easy bruising Allergic/Immunologic Allergic/Immunologic ED: Denies urticaria EXAM Physical Exam Const Vital Signs: 09/07/22 21:27 09/07/22 21:29 09/07/22 21:31 Temperature 97.8 F Temperature Source Temporal Pulse Rate 114 H 113 H Respiratory Rate 30 H 25 H Respiratory Effort Short of Breath Blood Pressure 182/99 H 162/97 H Blood Pressure Mean 126 118 Pulse Ox 96 95 Oxygen Delivery Method Room Air Room Air Room Air 09/07/22 21:32 09/07/22 21:59 09/07/22 23:29 Temperature 97.8 F 97.8 F Temperature Source Temporal Temporal Pulse Rate 109 H 109 H 106 H Respiratory Rate 25 H 18 24 H Respiratory Effort Blood Pressure 162/97 H 177/107 H Blood Pressure Mean 118 130 Pulse Ox 96 97 Oxygen Delivery Method Room Air Room Air 09/07/22 23:29 Temperature Temperature Source Pulse Rate 106 H Respiratory Rate 24 H Respiratory Effort Blood Pressure 177/107 H Blood Pressure Mean 130 Pulse Ox 97 Oxygen Delivery Method Room Air Positive well nourished, well developed and obese Constitutional Narrative: Patient does have some increased work of breathing. I can hear some wheezing in the room. General Appearance ED: well developed Nutritional Appearance: obese HEENT Reports moist mucous membranes Eyes General Eye ED: Negative for scleral icterus Neck Neck Narrative: No stridor heard. Resp Resp Narrative: Increased respiratory effort. She has poor air motion. She has diffuse wheezing. Auscultation: wheezes and diminished lung sounds; Negative for rales or rhonchi Cardio regular rhythm Rate: tachycardic GI non-tender and non-distended Back/Spine no CVA tenderness Extremity Extremity Narrative: Bilateral edema equal. Neuro oriented x3 Neuro Narrative: Not sleepy or lethargic. Psych mental status grossly normal MDM MDM MDM Narrative Medical decision making narrative: Patient's blood work showed normal to slightly low white count. She was more anemic. 6.9. I note that she has been dropping for the past year. She also has mildly low platelets. None of these values are new but they are worsening. I did talk with the patient. She has been having relatively heavy menstrual cycles for the past year. She was told they think she is going through menopause so she is having slightly irregular and heavy menstrual cycles. But she is not bleeding now. She states she had outpatient blood work and her hemoglobin was 7 recently. Therefore this is not a big drop at all from a recent outpatient test that I do not have access to. Patient's BNP was normal. Electrolytes show no marked abnormalities. Her glucose was reason well controlled for her it to her in 229. I went to see the patient. She is moving air much better now. She states she feels better. I explained to her that I was concerned with her pancytopenia and her dyspnea. She feels that this is her asthma. I explained that anemia can also contribute to her dyspnea. She does not want to come in the hospital at this point. I will write for albuterol inhaler with spacer here. I will get her on steroids. She will work to get her nebulizer fixed. She does have meds for it at home. We will send her home with our nebulizer tubing in case that is her problem. I will also start her on iron supplements. I think this anemia is progressive and chronic and that is why it is being tolerated better. It is likely due to menstrual sources because she denies any black or bloody stools. She states she is only had 1 or 2 nosebleeds in the last year. No other known sources of bleeding. I explained that she needs to see her physician in close follow-up and we discussed reasons to return. Lab Data Attestation: I reviewed the patient's lab results. Labs: Laboratory Results - last 24 hr 09/07/22 09/07/22 09/07/22 22:00 22:00 22:00 WBC 3.4 L RBC 3.75 L Hgb 6.9 L Hct 27.3 L MCV 72.8 L MCH 18.4 L MCHC 25.3 L RDW Std Deviation 60.6 H RDW Coeff of [place] 23.1 H Plt Count 84 L MPV 10.0 Immature Gran % (Auto) 0.600 Neut % (Auto) 70.3 H Lymph % (Auto) 21.7 [place] % (Auto) 5.6 Eos % (Auto) 1.5 Baso % (Auto) 0.3 Absolute Neuts (auto) 2.4 Absolute Lymphs (auto) 0.73 L Nucleated RBC % 0 Differential Comment SCANNED Sodium 137 Potassium 4.0 Chloride 111 H Carbon Dioxide 27.0 Anion Gap -1 L BUN 10 Creatinine 0.69 Estim Creat Clear Calc 88.76 Est GFR (MDRD) Af Amer 120 Est GFR (MDRD) Non-Af 99 BUN/Creatinine Ratio 14.5 Glucose 229 H Calcium 8.2 L B-Natriuretic Peptide 75.6 Radiography Diagnostic Testing: Clinical Impression(s) from Imaging Studies Chest X-Ray 09/07/22 22:15 IMPRESSION: Asymmetric interstitial thickening in the right lower lobe possibly due to acute inflammatory process Clinical correlation recommended. Electronically Signed: Figueroa Lamb MD at 22:48 EST , Single chest x-ray looked at by me and read by radiology shows interstitial thickening right lower lobe possibly due to inflammatory process. However, this may be due to body habitus also. EKG Initial EKG: Comments: EKG done for dyspnea read by me showed sinus rhythm with tachycardic rate at 109. No ventricular ectopy. No acute ST elevation or depression. [place] interval, QRS duration and QTc is normal. This is similar to 1 from 07 December of this year including the mild tachycardia. Discharge Plan Triage Chief Complaint: Shortness of Breath ED Provider: Robbin Ham Dx/Rx/DC Orders Clinical Impression: Asthma exacerbation, Pancytopenia Instructions: Anemia, ED Asthma, Acute (Adult) Prescriptions: New ferrous sulfate [FeroSul] 325 mg (65 mg iron) tablet 325 mg PO TID Qty: 90 0RF Rx Instructions: May start once a day for a week, twice a day for a week, and then start 3 times daily. prednisone 20 mg tablet 60 mg PO DAILY Qty: 15 0RF albuterol sulfate [Ventolin HFA] 90 mcg/actuation HFA aerosol inhaler 2 puff inhalation Q4H PRN MDD Dispense with spacer if availa PRN (Reason: Wheezing) Qty: 1 0RF No Action loratadine [Allergy Relief (loratadine)] 10 MG tablet 10 mg PO DAILY lorazepam 1 MG tablet 1 mg PO BID PRN PRN (Reason: Anxiety) albuterol sulfate [Ventolin HFA] 1 INHALER inhaler 1 puff inhalation Q4H PRN PRN (Reason: Shortness Of Breath) trazodone 100 MG tablet 300 mg PO QHS sumatriptan succinate [Imitrex] 25 MG tablet 25 mg PO .X1 PRN PRN (Reason: Migraine Symptoms) montelukast 10 MG tablet 10 mg PO QHS metformin 500 MG tablet 1,000 mg PO BID Label Comments: TAKE 2 TABLETS TWICE DAILY WITH meals lamotrigine 200 mg tablet 200 mg PO BID Label Comments: 1 tablet twice a day citalopram 40 tablet 40 mg PO DAILY topiramate 100 MG tablet 100 mg PO BID Label Comments: TAKE 1 TABLET TWICE DAILY naproxen 500 MG tablet 500 mg PO BID PRN PRN (Reason: Pain Or Fever) Label Comments: TAKE 1 TABLET TWICE DAILY WITH FOOD NEEDED FOR PAIN /inflammation aripiprazole 2 mg tablet 5 mg PO QHS Label Comments: Take 1 tablet by mouth once a day glimepiride 2 MG tablet 4 mg PO DAILY lansoprazole 30 MG capsule 30 mg PO DAILY Qty: 30 0RF metformin 500 mg Tablet 500 mg PO LUNCH potassium chloride 10 mEq capsule, extended release 10 meq PO DAILY Label Comments: TAKE ONE CAPSULE BY MOUTH EVERY DAY furosemide 20 mg tablet 20 mg PO DAILY Rx Instructions: x7 days, currently on day 5 acetaminophen-codeine 300-30 mg tablet 1 tab PO Q6H PRN PRN (Reason: Pain) Primary Care Provider: Verona Villarreal Referrals: Verona Villarreal MD [Primary Care Provider] - As soon as possible Disposition Disposition: Home, Self Care
[2022-09-07] MEDS: Ipratropium/Albuterol Sulfate 3 ML AMPUL.NEB INHALATION (21:58)
[2022-09-07] MEDS: Albuterol 2.5 MG/3 ML VIAL.NEB. INHALATION (21:58)
[2022-09-07 21:59] VITALS: PULSE 109; RESP 18
[2022-09-07] MEDS: MethylPREDNISolone 125 MG/2 ML Vial IV (22:02)
--- NOTE | 2022-09-07 22:12 | CPS ---
pt states aero tx did not do anything
--- NOTE | 2022-09-07 22:15 | RAD_ITS ---
INDICATION: SOB EXAMINATION/TECHNIQUE: X-RAY - XR Chest 1 View COMPARISON: None. FINDINGS: LINES/DEVICES: None. LUNGS: There is asymmetric interstitial thickening in the right lower lobe possibly inflammatory. There is no pleural effusion.. No pneumothorax. MEDIASTINUM AND CARDIOVASCULAR STRUCTURES: Cardiac silhouette not enlarged. Central airways and mediastinal contour are unremarkable. BONES AND SOFT TISSUES: Unremarkable. RAD/Chest 1 View (Portable) IMPRESSION: Asymmetric interstitial thickening in the right lower lobe possibly due to acute inflammatory process Clinical correlation recommended. Electronically Signed: Figueroa Lamb MD at 22:48 EST ,
[2022-09-07 22:26] LABS: Absolute Lymphocyte Count 0.73 X10^3/uL (0.83-4.51); Absolute Neutrophil Count 2.4 X10^3/uL (2.0-7.7); Basophil# 0.01 X10^3/uL; Basophil% 0.3 % (0-1); Eosinophil# 0.05 X10^3/uL; Eosinophils% 1.5 % (0-5); Hematocrit 27.3 % (37-47); Hemoglobin 6.9 g/dL (12.0-15.0); Lymphocyte # 0.73 X10^3/ul (0.83-4.51); Lymphocyte % 21.7 % (19-41); Mean Corp Hgb Conc 25.3 g/dL (32-36); Mean Corpuscular Hgb 18.4 pg (27.0-32.0); Mean Corpuscular Volume 72.8 fL (81-99); Monocyte# 0.19 X10^3/uL; Monocyte% 5.6 % (0-10); NRBC Flagged by Analyzer 0 % (0-5); Neutrophil # 2.37 X10^3/uL (2.7-7.7); Neutrophil % 70.3 % (47-70); POSITIVE COUNT YES; POSITIVE MORPHOLOGY YES; Platelet Count 84 K/mm3 (150-450); RBC Distribution Width CV 23.1 % (11.6-14.6); RBC Distribution Width SD 60.6 fl (35.1-43.9); Red Blood Count 3.75 M/mm3 (4.2-5.4); White Blood Count 3.4 K/mm3 (4.4-11.0)
[2022-09-07 22:31] LABS: Differential Indicated SCAN CRITERIA MET
[2022-09-07 22:43] LABS: Anion Gap -1 (5-15); BUN 10 mg/dL (7-18); BUN/Creat Ratio 14.5 RATIO (10-20); Calcium,Total 8.2 mg/dL (8.5-10.1); Chloride 111 mmol/L (98-107); Creatinine, Serum 0.69 mg/dL (0.55-1.02); EST Glomerular Filtration Rate 99 mL/min (>60); Est Glom Filt Rate - Afr Amer 120 mL/min (>60); Estimated Creatinine Clearance 88.76 ml/min; Glucose 229 mg/dL (74-106); Sodium Level 137 mmol/L (136-145)
[2022-09-07 22:44] LABS: BNP,B-Type NATRIURETIC PEPTIDE 75.6 pg/mL (0-100)
[2022-09-07 22:54] LABS: Differential Comment SCANNED
[2022-09-07 23:29] VITALS: BP 177/107; PULSE 106; RESP 24; TEMP 36.6; O2SAT 97
== END 2022-09-08 00:49 | disposition home or self-care (01) ==
PROVIDERS: Emergency Provider Emergency Medicine; PCP Internal Medicine; Visit Provider Emergency Medicine
DX: J45.901 Unspecified asthma with (acute) exacerbation (principal); D61.818 Other pancytopenia; J44.9 Chronic obstructive pulmonary disease, unspecified; F31.9 Bipolar disorder, unspecified; E11.9 Type 2 diabetes mellitus without complications; R60.0 Localized edema; N92.6 Irregular menstruation, unspecified; F41.9 Anxiety disorder, unspecified; F17.210 Nicotine dependence, cigarettes, uncomplicated; Z79.84 Long term (current) use of oral hypoglycemic drugs; Z79.899 Other long term (current) drug therapy; E66.9 Obesity, unspecified
CPT/HCPCS: 71045; 80048; 83880; 85025; 87428; 93005; 94640; 96374; 99285; A4216

== ENCOUNTER 2022-12-09 13:15 | Emergency (ER) | payer MEDICAID, SELFPAY ==
[2022-12-09 13:16] VITALS: BP 147/68; PULSE 96; RESP 18; TEMP 35.9; O2SAT 100; BMI 65.2
--- NOTE | 2022-12-09 13:39 | ED.VIS.BACK ---
HPI History of Present Illness Chief Complaint: Back Informant: patient Narrative Narrative: Gradual onset of left low back pain that started yesterday, worse today significantly worse with moving, but the patient presents saying that she thinks it is her kidney and although she has had no urinary symptoms she states she has been treating the pain at home with cranberry juice. She has had some nausea, no fevers, no abdominal pain or trouble urinating. Has a history of kidney stones and thinks that it hurts to a significant degree and in similar location. Cannot remember any injury to her back, she states she does a lot when she is cleaning her house but cannot remember any excessive heavy lifting or slips or falls the day of or the day before. No numbness or tingling or radiation of the discomfort down to her lower extremities, no bowel or bladder dysfunction. [facility] Medical History Anxiety Asthma Bipolar 1 disorder COPD (chronic obstructive pulmonary disease) Diabetes Obesity Sleep apnea Home Medications loratadine 10 mg tablet (Allergy Relief (loratadine)) 10 mg PO DAILY Allergies 07/07/13 [History Last Taken 11/07/19] lorazepam 1 mg tablet 1 mg PO BID PRN PRN Anxiety 12/11/13 [History Last Taken 06/26/19] albuterol sulfate 90 mcg/actuation aerosol inhaler (Ventolin HFA) 1 puff inhalation Q4H PRN PRN Shortness Of Breath 03/26/14 [History Last Taken 11/07/19] trazodone 100 mg tablet 300 mg PO QHS depression 01/12/15 [History Last Taken 11/07/19] montelukast 10 mg tablet 10 mg PO QHS 08/10/16 [History Last Taken 11/07/19] sumatriptan succinate 25 mg tablet (Imitrex) 25 mg PO .X1 PRN PRN Migraine Symptoms 08/10/16 [History Last Taken 06/30/19] aripiprazole 2 mg tablet 5 mg PO QHS 07/01/19 [History Last Taken 11/07/19] citalopram 40 mg tablet 40 mg PO DAILY 07/01/19 [History Last Taken 11/07/19] lamotrigine 200 mg tablet 200 mg PO BID 07/01/19 [History Last Taken 11/07/19] metformin 500 mg tablet 1,000 mg PO BID dm 07/01/19 [History Last Taken 11/07/19] naproxen 500 mg tablet 500 mg PO BID PRN PRN Pain Or Fever 07/01/19 [History Last Taken Unknown] topiramate 100 mg tablet 100 mg PO BID 07/01/19 [History Last Taken 11/07/19] glimepiride 2 mg tablet 4 mg PO DAILY 11/08/19 [History Last Taken 11/07/19] lansoprazole 30 mg capsule,delayed release 30 mg PO DAILY #30 CAPSULES 12/30/20 [Rx Last Taken Unknown] metformin 500 mg tablet 500 mg PO LUNCH 06/01/22 [History Last Taken Unknown] acetaminophen 300 mg-codeine 30 mg tablet 1 tab PO Q6H PRN PRN Pain 09/07/22 [History Last Taken Unknown] albuterol sulfate 90 mcg/actuation aerosol inhaler (Ventolin HFA) 2 puff inhalation Q4H PRN PRN Wheezing ##1 09/07/22 [Rx Last Taken Unknown] ferrous sulfate 325 mg (65 mg iron) tablet (FeroSul) 325 mg PO TID #90 tabs 09/07/22 [Rx Last Taken Unknown] furosemide 20 mg tablet 20 mg PO DAILY 09/07/22 [History Last Taken Unknown] potassium chloride 10 mEq capsule,extended release 10 meq PO DAILY 09/07/22 [History Last Taken Unknown] prednisone 20 mg tablet 60 mg PO DAILY #15 tabs 09/07/22 [Rx Last Taken Unknown] cyclobenzaprine 10 mg tablet 10 mg PO TID PRN Muscle Spasm #20 TABLETS 12/09/22 [Rx Last Taken Unknown] naproxen 500 mg tablet 500 mg PO BID #14 tabs 12/09/22 [Rx Last Taken Unknown] Allergy/AdvReac Type Severity Reaction Status Date / Time melatonin Allergy Hives Verified 12/09/22 13:18 Penicillins Allergy Hives Verified 12/09/22 13:18 Surgical History History of herniorrhaphy Social History household members: none Smoking Status: Current every day smoker tobacco type: cigarettes substance use type: does not use ROS ROS ED Constitutional Constitutional ED: Denies chills or fever(s) Gastrointestinal Gastrointestinal: Denies abdominal pain, constipation, fecal incontinence, nausea or vomiting Genitourinary Genitourinary ED: Reports other Details: no urinary retention ; Denies abdominal discomfort or urinary incontinence Musculoskeletal Musculoskeletal: Reports as per HPI and back pain; Denies neck pain Integumentary Denies rash or wounds Neurologic Neurologic: Denies headache(s), paresthesias or weakness EXAM Physical Exam Const Vital Signs: 12/09/22 13:16 Temperature 96.7 F L Temperature Source Temporal Pulse Rate 96 Respiratory Rate 18 Blood Pressure 147/68 H Blood Pressure Mean 94 Pulse Ox 100 Oxygen Delivery Method Room Air Positive well nourished and well developed Constitutional Narrative: Morbidly obese, which limits the exam General Appearance ED: well developed and NAD HEENT Negative for trauma or tenderness Eyes PERRL and EOMs intact bilaterally Neck full ROM and supple GI normal to inspection, nondistended, normoactive bowel sounds, soft to palpation and non-tender Back/Spine normal to inspection General Back: Negative for CVA tenderness Lumbar Spine / Lower Back: ROM limited, paraspinal muscle tenderness left L1 and straight leg raise negative bilaterally; Negative for lumbar spinal tenderness Extremity normal to inspection, full ROM and no pedal edema Neuro oriented x3 and no sensory deficits noted Sensorium / Orientation: alert Motor Exam: strength 5/5 throughout and clonus absent Deep Tendon Reflexes: Rt Patellar (L4): 2+, Lt Patellar (L4): 2+, Rt Ankle (S1): 2+ and Lt Ankle (S1): 2+ Deep Tendon Reflexes Back: Rt Patellar (L4): 2+, Lt Patellar (L4): 2+, Rt Ankle (S1): 2+ and Lt Ankle (S1): 2+ Plantar Reflex: Downgoing: bilateral Psych thought process normal Psych Narrative: Anxious Skin no rashes or lesions noted and no wounds MDM MDM MDM Narrative Medical decision making narrative: Based on history and exam this seems musculoskeletal in etiology, not renal. I was happy to check a urinalysis for this patient anyway given her history of stones. Urine is unremarkable showing no signs of infection or blood. I did a in case we have to scan her, the was negative. On reevaluation she is feeling much better after being treated with an oral Butler and IM Toradol and Norflex. Her history and exam are consistent with musculoskeletal back pain, therefore although we considered other testing I do not think any of it is indicated right now, such as a CT of the flank. Given all this I am comfortable discharging her home she is okay with that as well, will prescribe her some muscle relaxers and NSAIDs as well. Lab Data Attestation: I reviewed the patient's lab results. Labs: Laboratory Results - last 24 hr 12/09/22 14:03 Urine Color Yellow Urine Clarity Sl. Cloudy Urine pH 7.0 Ur Specific Hungry Horse 1.010 Urine Protein 15 H Urine Glucose (UA) 250 H Urine Ketones Negative Urine Occult Blood Negative Urine Nitrite Negative Urine Bilirubin Negative Urine Urobilinogen 1 H Ur Leukocyte Esterase Negative Urine RBC 0 SEEN Urine WBC 0 SEEN Ur Squamous Epith Cells 0-5 SEEN Amorphous Sediment 2+ Urine Bacteria 0 SEEN Urine Mucus 0 SEEN Urine Test Negative Discharge Plan Triage Chief Complaint: Back ED Provider: Arcadio Bundy Dx/Rx/DC Orders Clinical Impression: Acute lumbar myofascial strain Instructions: ED Back Sprain/Strain Prescriptions: New cyclobenzaprine [cyclobenzaprine] 10 mg tablet 10 mg PO TID PRN (Reason: Muscle Spasm) Qty: 20 0RF naproxen 500 mg tablet 500 mg PO BID Qty: 14 0RF No Action loratadine [Allergy Relief (loratadine)] 10 MG tablet 10 mg PO DAILY lorazepam 1 MG tablet 1 mg PO BID PRN PRN (Reason: Anxiety) albuterol sulfate [Ventolin HFA] 1 INHALER inhaler 1 puff inhalation Q4H PRN PRN (Reason: Shortness Of Breath) trazodone 100 MG tablet 300 mg PO QHS sumatriptan succinate [Imitrex] 25 MG tablet 25 mg PO .X1 PRN PRN (Reason: Migraine Symptoms) montelukast 10 MG tablet 10 mg PO QHS metformin 500 MG tablet 1,000 mg PO BID Label Comments: TAKE 2 TABLETS TWICE DAILY WITH meals lamotrigine 200 mg tablet 200 mg PO BID Label Comments: 1 tablet twice a day citalopram 40 tablet 40 mg PO DAILY topiramate 100 MG tablet 100 mg PO BID Label Comments: TAKE 1 TABLET TWICE DAILY naproxen 500 MG tablet 500 mg PO BID PRN PRN (Reason: Pain Or Fever) Label Comments: TAKE 1 TABLET TWICE DAILY WITH FOOD NEEDED FOR PAIN /inflammation aripiprazole 2 mg tablet 5 mg PO QHS Label Comments: Take 1 tablet by mouth once a day glimepiride 2 MG tablet 4 mg PO DAILY lansoprazole 30 MG capsule 30 mg PO DAILY Qty: 30 0RF metformin 500 mg Tablet 500 mg PO LUNCH potassium chloride 10 mEq capsule, extended release 10 meq PO DAILY Label Comments: TAKE ONE CAPSULE BY MOUTH EVERY DAY furosemide 20 mg tablet 20 mg PO DAILY Rx Instructions: x7 days, currently on day 5 acetaminophen-codeine 300-30 mg tablet 1 tab PO Q6H PRN PRN (Reason: Pain) ferrous sulfate [FeroSul] 325 mg (65 mg iron) tablet 325 mg PO TID Qty: 90 0RF Rx Instructions: May start once a day for a week, twice a day for a week, and then start 3 times daily. prednisone 20 mg tablet 60 mg PO DAILY Qty: 15 0RF albuterol sulfate [Ventolin HFA] 90 mcg/actuation HFA aerosol inhaler 2 puff inhalation Q4H PRN MDD Dispense with spacer if availa PRN (Reason: Wheezing) Qty: 1 0RF Primary Care Provider: Verona Villarreal Referrals: Verona Villarreal MD [Primary Care Provider] - 3-5 Days if not improving Disposition Disposition: Home, Self Care
[2022-12-09] MEDS: Orphenadrine 60 MG/2 ML Ampul IM (13:49)
[2022-12-09] MEDS: HYDROcodone Bitartrate/Apap 5/325 Tablet PO (13:49)
[2022-12-09] MEDS: Ketorolac 60 MG/2 ML Vial IM (13:49)
[2022-12-09 14:09] LABS: Bacteria 0 SEEN /hpf (None Seen); Mucous, Urine 0 SEEN /hpf (<or=2+); Red Blood Cells-Urine 0 SEEN /hpf (0-5); White Blood Cells 0 SEEN /hpf (0-5)
[2022-12-09 14:11] LABS: Color, Urine Yellow (Yellow); Glucose, Dipstick 250 mg/dl (Normal); Ketone-Dipstick Negative (Negative); Leukocyte Esterase-Dipstick Negative /ul (Negative); Nitrite-Dipstick Negative (Negative); Occult Blood-Urine Negative /ul (Negative); Protein-Dipstick 15 mg/dl (Negative); Urine Bilirubin Dipstick Negative (Negative); Urine Clarity Sl. Cloudy (Clear); Urine Urobilinogen 1 mg/dl (Normal)
[2022-12-09 14:20] LABS: Amorphous Sediment 2+; Internal QC Validated? YES +Cl - CLEAR BKGD; Pregnancy, Urine Negative Negative; Squamous Epithelial Cells - UA 0-5 SEEN /hpf (5-10)
== END 2022-12-09 15:24 | disposition home or self-care (01) ==
PROVIDERS: Emergency Provider Emergency Medicine; PCP Internal Medicine; Visit Provider Emergency Medicine
DX: S39.012A Strain of muscle, fascia and tendon of lower back, initial encounter (principal); J44.9 Chronic obstructive pulmonary disease, unspecified; F31.9 Bipolar disorder, unspecified; E11.9 Type 2 diabetes mellitus without complications; X58.XXXA Exposure to other specified factors, initial encounter; G47.30 Sleep apnea, unspecified; E66.9 Obesity, unspecified; F17.210 Nicotine dependence, cigarettes, uncomplicated; Z79.84 Long term (current) use of oral hypoglycemic drugs; Z79.1 Long term (current) use of non-steroidal anti-inflammatories (NSAID); Z79.899 Other long term (current) drug therapy; Z87.442 Personal history of urinary calculi
CPT/HCPCS: 81001; 81025; 96372; 99283

== ENCOUNTER 2023-07-11 15:00 | Outpatient (RCR) | payer MEDICAID, SELFPAY ==
[2023-06-20 14:54] VITALS: BP 154/87; PULSE 116; RESP 22; TEMP 36.1; BMI 62.5
--- NOTE | 2023-06-20 15:50 | HP.PCM_ITS ---
History of Present Illness Date of Service: 06/20/23 Chief Complaint: Ulceration right posterior leg History of Wound: Ulceration right posterior leg Progress of Wound: Mrs. Rodriguez is a 42-year-old diabetic female sending to [place] wound care center today for follow-up and evaluation of ulceration to the posterior aspect of the right leg. Patient was seen by an outside provider where she had gone through 3 rounds of oral antibiotics, Bactrim's and still has evidence of ulceration and redness to her right leg. She has tried to compress her leg but the dressing always falls down or is not tight enough. Patient is concerned that she still has an infection to the right leg. She also has a small laceration appreciated plantar aspect of her right foot. She does not wear diabetic shoes. She is wearing an older pair shoes is very easy to get on and off. Her left lower extremity is unremarkable at this time. She denies any new onset of trauma. She denies constitutional symptoms. No other complaints at this time. [facility] Medical History Anxiety Asthma Bipolar 1 disorder COPD (chronic obstructive pulmonary disease) Diabetes Obesity Sleep apnea Home Medications loratadine 10 mg tablet (Allergy Relief (loratadine)) 10 mg PO DAILY Allergies 07/07/13 [History Last Taken 11/07/19] lorazepam 1 mg tablet 1 mg PO BID PRN PRN Anxiety 12/11/13 [History Last Taken 06/26/19] albuterol sulfate 90 mcg/actuation aerosol inhaler (Ventolin HFA) 1 puff inhalation Q4H PRN PRN Shortness Of Breath 03/26/14 [History Last Taken 11/07/19] trazodone 100 mg tablet 300 mg PO QHS depression 01/12/15 [History Last Taken 11/07/19] montelukast 10 mg tablet 10 mg PO QHS 08/10/16 [History Last Taken 11/07/19] sumatriptan succinate 25 mg tablet (Imitrex) 25 mg PO .X1 PRN PRN Migraine Symptoms 08/10/16 [History Last Taken 06/30/19] aripiprazole 2 mg tablet 5 mg PO QHS 07/01/19 [History Last Taken 06/20/23] citalopram 40 mg tablet 40 mg PO DAILY 07/01/19 [History Last Taken 11/07/19] lamotrigine 200 mg tablet 200 mg PO BID 07/01/19 [History Last Taken 11/07/19] metformin 500 mg tablet 1,000 mg PO BID dm 07/01/19 [History Last Taken 11/07/19] naproxen 500 mg tablet 500 mg PO BID PRN PRN Pain Or Fever 07/01/19 [History Last Taken Unknown] topiramate 100 mg tablet 100 mg PO BID 07/01/19 [History Last Taken 11/07/19] glimepiride 2 mg tablet 4 mg PO DAILY 11/08/19 [History Last Taken 11/07/19] lansoprazole 30 mg capsule,delayed release 30 mg PO DAILY #30 CAPSULES 12/30/20 [Rx Last Taken Unknown] metformin 500 mg tablet 500 mg PO LUNCH 06/01/22 [History Last Taken Unknown] albuterol sulfate 90 mcg/actuation aerosol inhaler (Ventolin HFA) 2 puff inhalation Q4H PRN PRN Wheezing ##1 09/07/22 [Rx Last Taken Unknown] ferrous sulfate 325 mg (65 mg iron) tablet (FeroSul) 325 mg PO TID #90 tabs 09/07/22 [Rx Last Taken Unknown] furosemide 20 mg tablet 20 mg PO DAILY 09/07/22 [History Last Taken Unknown] potassium chloride 10 mEq capsule,extended release 10 meq PO DAILY 09/07/22 [History Last Taken Unknown] cyclobenzaprine 10 mg tablet 10 mg PO TID PRN Muscle Spasm #20 TABLETS 12/09/22 [Rx Last Taken Unknown] naproxen 500 mg tablet 500 mg PO BID #14 tabs 12/09/22 [Rx Last Taken Unknown] Allergy/AdvReac Type Severity Reaction Status Date / Time melatonin Allergy Hives Verified 06/20/23 15:17 Penicillins Allergy Hives Verified 06/20/23 15:17 Surgical History History of herniorrhaphy Social History household members: none Smoking Status: Current every day smoker tobacco type: cigarettes substance use type: does not use Vital Signs Vital Signs Vital Signs: 06/20/23 14:54 Temperature 96.9 F L Temperature Source Temporal Pulse Rate 116 H Respiratory Rate 22 H Blood Pressure 154/87 H Blood Pressure Mean 109 Blood Pressure Source Monitor Blood Pressure Position Supine Weight Weight: 160.223 kg Body Mass Index (BMI) 62.5 Physical Exam Narrative Vascular: DP and PT pulses are palpable. CFT is brisk. Skin temperature is warm to warm from proximal ankle to distal digit. Blanchable erythema appreciated to the right leg. Neurological: Light touch intact. Epic and station is intact. Protective sensation is slightly diminished. Dermatological: Blanchable erythema to the right leg. When elevated there shows an increase in the erythema which is identifiable with dependent rubor. Multiple full-thickness ulcerations and clusters to the posterior aspect of the right leg. Wound base is fibrogranular in nature with no drainage, malodor or sign of infection at this time. Excisional debridement down to including subcutaneous tissue with number 5 mm dermal curette to the posterior aspect of the right leg ulceration. Predebridement measurements were 0.3 x 0.3 x 0.1 cm. Postdebridement measurements are 0.5 x 0.5 x 0.1 cm. Musculoskeletal: Strength 5 and 5 in all quadrants bilateral. Mild to moderate palpatory tenderness appreciated to the full-thickness ulceration to the posterior aspect of the right leg. No pain on palpation to the small laceration on the plantar aspect of the right foot. No pain with calf pression. Debridement Note Debridement Note Post-Debridement Measurements and Additional Note: Post-Debridement Measurements/Treatment - Nurse 1 - General Ulcer Assessment Start: 06/20/23 14:52 Freq: Status: Active Protocol: WATSON Activity Type Activity Date Activity User E-sign Co-sign Detail Recorded Client Recorded Date Recorded By Document 06/20/23 14:54 Desktop 06/20/23 15:13 DL 06/20/23 14:54 - Today's Visit Information Type of service Initial Visit Arrival Mode Ambulatory Transfer Assistance None Patient Identification Verified (Name & Yes ) Patient Requires Transmission-Based No Precautions Finger Stick Blood Sugar(mg/dl) (if 195 indicated): Blood Sugar Stated by Patient Height and Weight Height 5 ft 3 in Weight 160.223 kg Weight in Pounds 353.2 lbs Body Mass Index (BMI) 62.5 BMI Classification Obese BSA - [place] 2.46 Vital Signs Temperature (97.8 F-99.1 F) 96.9 F L Temperature Source Temporal Pulse Rate (60-100) 116 H Pulse Location Monitor Respiratory Rate (12-18) 22 H Respiratory rate source Observation Blood Pressure (90/60-120/80) 154/87 H Blood Pressure Mean 109 Source Monitor Position Supine History Since Last Visit- (Skip if this is Patient's initial visit) Left Footwear Regular Shoe Right Footwear Regular Shoe Pain Scale: 0-10 Numeric Is Patient Pain Free? Yes Lower Extremity Assessment/ Foot Assessment/ Toe Nail Assessment Left -Posterior Tibial Palpable Yes -Posterior Tibial Doppler Multiphasic -Dorsalis Pedis Palpable Yes -Dorsalis Pedis Doppler Multiphasic -Extremity Color Normal -Hair Growth on Legs No -Hair Growth on Toes No -Temperature of Extremity Warm -Capillary Refill Less than 3 Seconds -Dependent Rubor No -Blanched when Elevated No -Lipodermatosclerosis No -Other Deformity No -Prior Foot Ulcer No -Charcot Joint No -Prior Amputation No -Thick Yes -Discolored No -Deformed Yes -Improper Length & Hygeine No Right -Posterior Tibial Palpable Yes -Posterior Tibial Doppler Multiphasic -Dorsalis Pedis Palpable Yes -Dorsalis Pedis Doppler Multiphasic -Extremity Color Normal -Hair Growth on Legs No -Hair Growth on Toes No -Temperature of Extremity Warm -Capillary Refill Less than 3 Seconds -Dependent Rubor No -Blanched when Elevated No -Lipodermatosclerosis No -Other Deformity No -Prior Foot Ulcer No -Charcot Joint No -Prior Amputation No -Thick Yes -Discolored No -Deformed Yes -Improper Length & Hygeine No Neuropathy Assessment Feet - Top Side and Bottom <Entered> (a) Communication Assessment Preferred language Syrian Able to Read Yes Able to Write Yes Right Hearing Abillity Normal Left Hearing Abillity Normal Visual Assistive Devices Glasses Teaching Assessment Preferences Verbal,Written Barriers to Learning None,Knowledge Deficit Readiness To Learn Good Willingness to Engage in Self Management Med Activies Readiness to Engage in Self Management Med Activities Anxiety Level Calm Cooperation Cooperative Perception Coherent Interest in Health Problem Asks Questions Education Importance Acknowledges Need Does Patient Smoke tobacco or other Yes substances Smoking Status Current every day smoker Is Patient Diabetic Yes Functional Assessment Recent Decline in Ability to Perform Denies Any Declines Assistive Device With Patient N/A Culture/Yazdanism/Buggy Loader Cultural/Yazdanism Needs that may affect No Treatment Plan Would you allow our hospital gas golf cart repairer to No meet you for the purpose of spiritual/ emotional support? Buggy Loader to contact place of sikh No Teaching: Wound Center Discharge Instructions -Person Taught Patient *Welcome to the Wound Center -Person Taught Patient (a) 1 - + WC - Nurse 1 - General Ulcer Measurement Start: 06/20/23 14:52 Freq: Status: Active Protocol: Activity Type Activity Date Activity User E-sign Co-sign Detail Recorded Client Recorded Date Recorded By Document 06/20/23 14:54 DL Desktop 06/20/23 15:13 DL 06/20/23 14:54 Wound Center Nurse 1 #1 R post LE -Current Size (cm) - Length 1.5 -Current Size (cm) - Width 1 -Current Size (cm) - Depth 0.1 -Total Square Cm 1.5 -Photo Taken Yes -Tunneling No -Undermining/Tunneling No -Exudate Amt Small -Exudate Type Serosanguineous -Wound Margin Distinct, Outline Attached -Granulation Amt Small (1-33%) -Granulation Quality [place] -Necrosis Amt Small (1-33%) -Necrotic Tissue Type Adherent Slough -Structure Exposed N/A -Texture (Rachele-wound Skin Appearance) Localized Edema -Moisture (Rachele-wound Skin Appearance) No Abnormality -Color (Rachele-wound Skin Appearance) No Abnormality, Erythema -Temperature (Rachele-wound Skin No Abnormality Appearance) (Pt Warm) -Tenderness on Palpation (Rachele-wound No Skin Appearance) -Ulcer Cleansing Soap and Water -Foul Odor after Cleansing No -Anesthetic Used 5% Lidocaine Gel Right Calf (cm) 64 Right Ankle (cm) 34.5 Left Calf (cm) 58 Left Ankle (cm) 33.4 WC - Nurse 2 - General Ulcer CM Notes Start: 06/20/23 14:52 Freq: Status: Active Protocol: Activity Type Activity Date Activity User E-sign Co-sign Detail Recorded Client Recorded Date Recorded By Document 06/20/23 15:28 JF Laptop 06/20/23 15:35 06/20/23 15:28 Wound Center Nurse 2 #1 R post LE -Time 15:30 -Correct Patient Yes -Correct Side, Site, Position Yes -Correct Procedure Yes -Procedure Performed Yes -Type of Procedure Debridement -Clinical Debridement Subcutaneous -Tissue Removed Subcutaneous -Post Debridement (cm) - Length 0.5 -Post Debridement (cm) - Width 0.5 -Post Debridement (cm) - Depth 0.1 -Total Square (Post) (cm) 0.25 -Area of Debridement (cm) - Length 0.5 -Area of Debridement (cm) - Width 0.5 -Total Square (Area) (cm) 0.25 -Tunneling No -Undermining/Tunneling No -Circular Undermining No -Wound/Ulcer Outcome Not Healed -Ulcer Cleansing Rinsed/ Irrigated with Saline -Foul Odor after Cleansing No -Bioengineered Tissue No -Bleeding Controlled with Pressure -Treatment Response Procedure Tolerated Well -Offloading No -Debridement - Subq, 1st 20sq cm Yes Pain Scale: 0-10 Numeric Is Patient Pain Free? Yes - Nurse 3 - General Ulcer D/C NN Start: 06/20/23 14:52 Freq: Status: Active Protocol: Activity Type Activity Date Activity User E-sign Co-sign Detail Recorded Client Recorded Date Recorded By Document 06/20/23 15:45 DL Desktop 06/20/23 15:46 DL 06/20/23 15:45 Wound Care Center Nurse 3 #1 R post LE -Ulcer Cleansing Rinsed/ Irrigated with Saline -Foul Odor after Cleansing No -Other Dressing bacitracin -Primary Dressing Covered/Secured with Dry Gauze, Secured with Tape Right -Tubular Bandage Double Layer -Size of Tubigrip Used Size F -Size F ($) 2 Treatment Response Procedure Tolerated Well Pain Scale: 0-10 Numeric Is Patient Pain Free? Yes - Visit Discharge Discharge Condition Stable Ambulatory Status Ambulatory Transportation Private Auto Assessment/Plan Assessment/Plan (1) Ulcer of right lower extremity with fat layer exposed: CODE(S): L97.912 - Non-pressure chronic ulcer of unspecified part of right lower leg with fat layer exposed PLAN: Patient was examined evaluated. All findings were discussed with the patient. All questions were answered to the patient's satisfaction. Excisional debridement down to including subcutaneous tissue with number 5 mm dermal curette to the posterior aspect of the right leg ulceration. Predebridement measurements were 0.3 x 0.3 x 0.1 cm. Postdebridement measurements are 0.5 x 0.5 x 0.1 cm. The patient's wound was dressed with triple ointment antibiotic and Band-Aid. A double layer Tubigrip size F was donned to the right lower extremity. The patient will follow-up in 1 week after her PVRs and venous reflux studies. If the patient is still showing evidence of erythema the patient will be placed on a 2-week course of doxycycline. She left the office pleased with the visit. (2) Type 2 diabetes mellitus with foot ulcer: CODE(S): E11.621 - Type 2 diabetes mellitus with foot ulcer; L97.509 - Non-pressure chronic ulcer of other part of unspecified foot with unspecified severity QUALIFIERS: Diabetes mellitus termite renewal inspector insulin use: with skilled nursing use Qualified Code(s): E11.621 - Type 2 diabetes mellitus with foot ulcer; L97.509 - Non-pressure chronic ulcer of other part of unspecified foot with unspecified severity; Z79.4 - termite renewal inspector (current) use of insulin (3) Diabetes mellitus with diabetic polyneuropathy: CODE(S): E11.42 - Type 2 diabetes mellitus with diabetic polyneuropathy QUALIFIERS: Diabetes mellitus type: type 2 Diabetes mellitus termite renewal inspector insulin use: with termite renewal inspector use Qualified Code(s): E11.42 - Type 2 diabetes mellitus with diabetic polyneuropathy; Z79.4 - termite renewal inspector (current) use of insulin (4) Lymphedema: CODE(S): I89.0 - Lymphedema, not elsewhere classified PLAN: In order for PVRs and venous reflux studies will be sent with the patient to get both studies prior to follow-up in 1 week. (5) Morbidly obese: CODE(S): E66.01 - Morbid (severe) obesity due to excess calories
--- NOTE | 2023-06-22 13:41 | ART_ITS ---
Reason For Study: BLE Wounds Procedure A bilateral lower extremity continuous wave Doppler with analog waveform analysis,segmental pressures,and ankle brachial indexes without exercise. Study was technically difficult due to body habitus, patient intolerance to compressions. Left Segmental Pressures Left brachial= 146mmHg. Left posterior tibial artery = 194mmHg. Left dorsalis pedis artery = 160mmHg. Right Segmental Pressures Right brachial= 149mmHg. Right calf = >254mmHg. Right posterior tibial artery = >254mmHg. Right dorsalis pedis artery = >254mmHg. Indices The right ankle brachial index by the dorsalis pedis is N/C. The right ankle brachial index by the posterior tibial artery is N/C. The left ankle brachial index by the posterior tibial artery is 1.30. The left ankle brachial index by the dorsalis pedis is 1.07. VL/Lower Ext Art Exam w/o Exercis Interpretation Summary Triphasic Doppler waveforms are noted at ankle level bilaterally. Pulse-volume recordings appear diminished at digital level bilaterally. The resting right ankle-brachial index could not be determined due to the non-compressibility of the vasculature at ankle level on the right. The resting left ankle-brachial index is normal. Toe pressures were not obtained du e to patient factors. There is evidence of arterial calcification at ankle level on the right. Arteri al flow appears normal at ankle level bilaterally. Digital flow was not fully assessed bilatera lly due to patient factors, though appears to be diminished. Clinical correlation is advised. Ordering Physician: Sebas Lord Referring Physician: Zora Liriano Performed By: Jaskaran Lopes RVT
--- NOTE | 2023-06-22 13:41 | VDLE_ITS ---
Reason For Study: BLE EDEMA RIGHT LEFT CFV is compressible, spontaneous, phasic, CFV is compressible, spontaneous, phasic, competent and demonstrates normal competent, and demonstrates normal augmentation. augmentation. FV is compressible, spontaneous, phasic, FV is compressible, spontaneous, phasic, competent and demonstrates normal competent and demonstrates normal augmentation. augmentation. POP V is compressible, spontaneous, phasic, POP V is compressible, spontaneous, phasic, competent and demonstrates normal competent and demonstrates normal augmentation. augmentation. T/P Trunk is compressible. T/P Trunk is compressible. PTV is compressible. PTV is compressible. RT PerV is compressible. LT PerV is compressible. Unable to visualize calf vessels at prox and Unable to visualize calf vessels at prox and mid due to body habitus. mid due to body habitus. SFJ is competent and measures 0.95 cm. SFJ is competent and measures 0.89 cm. GSV proximal thigh measures 0.65 x 0.75 cm. GSV proximal thigh measures 0.52 x 0.55 cm. GSV at knee measures 0.43 x 0.47 cm. GSV at knee measures 0.49 x 0.56 cm. GSV is competent throughout. GSV is competent throughout. SSV proximal calf is competent and measures SSV proximal calf is competent and measures 0.62 x 0.57 cm. 0.44 x 0.46 cm. Procedure Exam performed in department. The study was technically difficult. VL/Venous Duplex US - Tim Extrem Interpretation Summary Deep veins of the lower extremities are bilaterally patent and compressible seg mentally. There is no evidence of deep vein thrombosis on either side. Valvular competence appears in tact within the proximal deep venous systems bilaterally. The great saphenous veins appear bila terally patent and compressible segmentally. Portions of the deep calf vessels were not visualized bilaterally due to the patient's body habitus. Sapheno-femoral junctions are bilaterally competent . Valvular competence appears to be intact segmentally within the great saphenous veins bi laterally. Small saphenous veins are patent and competent bilaterally. Ordering Physician: Sebas Lord Referring Physician: Zora Liriano Performed By: Jaskaran Lopes RVT
[2023-06-27 14:50] VITALS: BP 158/103; PULSE 85; RESP 18; TEMP 36.2; BMI 62.5
--- NOTE | 2023-06-27 17:19 | PCM.WC.PN ---
History of Present Illness Date of Service: 06/27/23 Chief Complaint: Ulceration right posterior leg History of Wound: Ulceration right posterior leg Progress of Wound: Mrs. Rodriguez is a 42-year-old diabetic female sending to [facility] today for follow-up and evaluation of ulceration to the posterior aspect of the right leg. Patient was seen by an outside provider where she had gone through 3 rounds of oral antibiotics, Bactrim's and still has evidence of ulceration and redness to her right leg. She has tried to compress her leg but the dressing always falls down or is not tight enough. Patient is concerned that she still has an infection to the right leg. She also has a small laceration appreciated plantar aspect of her right foot. She does not wear diabetic shoes. She is wearing an older pair shoes is very easy to get on and off. Her left lower extremity is unremarkable at this time. She denies any new onset of trauma. She denies constitutional symptoms. No other complaints at this time. Subjective Subjective Ms. Rodriguez is a 42-year-old diabetic female presenting for follow-up of full-thickness ulceration to the posterior aspect of the right calf. Patient has kept her compression dressing clean dry and intact. She is doing her own wound care. She admits her redness is improved after compression to the right leg. She denies any new onset of trauma. Denies constitutional symptoms. No other pedal complaints at this time. Objective Data Objective Data Vital Signs: Vital Signs Temp Pulse Resp BP O2 Del Method 97.1 F L 85 18 158/103 H Room Air 06/27/23 14:50 06/27/23 14:50 06/27/23 14:50 06/27/23 14:50 06/27/23 14:50 Oxygen Delivery Method Room Air Weight: 160.223 kg Body Mass Index (BMI) 62.5 Physical Exam Narrative Neurovascular status unchanged. Evidence of full-thickness ulceration of the posterior calf measuring 1.5 x 0.7 x 0.1 cm. Wound base is fibrogranular in nature. Sanguinous drainage noted. No sign of infection. Erythema to the leg is blanchable without proximal streaking. Pain on palpation to full-thickness ulceration. No pain with calf compression. Excisional debridement down to and including subcutaneous tissue with number 5 mm dermal curette to the full-thickness ulceration to the posterior right calf. Predebridement measurements were 1.4 x 0.6 x 0.1 cm. Postdebridement measurement is 1.5 x 0.7 x 0.1 cm. Wound will be dressed with triple ointment antibiotic, Adaptic, and bilateral 3M compression wraps. Debridement Note Debridement Note Debridement Free Text: Excisional debridement down to and including subcutaneous tissue with number 5 mm dermal curette to the full-thickness ulceration to the posterior right calf. Predebridement measurements were 1.4 x 0.6 x 0.1 cm. Postdebridement measurement is 1.5 x 0.7 x 0.1 cm. Wound will be dressed with triple ointment antibiotic, Adaptic, and bilateral 3M compression wraps. Post-Debridement Measurements and Additional Note: Post-Debridement Measurements/Treatment WC - Nurse 1 - General Ulcer Assessment Start: 06/20/23 14:52 Freq: Status: Active Protocol: WC.LOWEXT Activity Type Activity Date Activity User E-sign Co-sign Detail Recorded Client Recorded Date Recorded By Document 06/20/23 14:54 DL Desktop 06/20/23 15:13 DL Document 06/27/23 14:50 KW Desktop 06/27/23 15:01 KW 06/20/23 06/27/23 14:54 14:50 WC - Today's Visit Information Type of service Initial Visit Follow-up Visit (Physician/LIQUOR COMMISSIONER ) Arrival Mode Ambulatory Ambulatory Transfer Assistance None Patient Identification Verified (Name & Yes Yes ) Patient Requires Transmission-Based No Precautions Finger Stick Blood Sugar(mg/dl) (if 195 indicated): Blood Sugar Stated by Patient Height and Weight Height 5 ft 3 in Weight 160.223 kg Weight in Pounds 353.2 lbs Body Mass Index (BMI) 62.5 62.5 BMI Classification Obese Obese BSA - [place] 2.46 Vital Signs Temperature (97.8 F-99.1 F) 96.9 F L 97.1 F L Temperature Source Temporal Temporal Pulse Rate (60-100) 116 H 85 Pulse Location Monitor Monitor Respiratory Rate (12-18) 22 H 18 Respiratory rate source Observation Observation Oxygen Delivery Method Room Air Blood Pressure (90/60-120/80) 154/87 H 158/103 H Blood Pressure Mean (mm Hg) 109 121 Source Monitor Monitor Position Supine Semi-Fowlers Blood Pressure Location Left Forearm History Since Last Visit- (Skip if this is Patient's initial visit) Have you changed medications since your No last visit? Any new allergies or adverse reactions No Had a fall/change in ADL's that may No increase risk of falls Signs or symptoms of abuse and/or No neglect since last visit Have you been in the hospital since your No last visit? Has dressing in place as prescribed Yes Has compression in place as prescribed Yes Has offloadiing in place as prescribed No Experienced any changes in pain level or No management Left Footwear Regular Shoe Slipper Right Footwear Regular Shoe Slipper Pain Scale: 0-10 Numeric Is Patient Pain Free? Yes Yes Lower Extremity Assessment/ Foot Assessment/ Toe Nail Assessment Left -Posterior Tibial Palpable Yes -Posterior Tibial Doppler Multiphasic -Dorsalis Pedis Palpable Yes -Dorsalis Pedis Doppler Multiphasic -Extremity Color Normal -Hair Growth on Legs No -Hair Growth on Toes No -Temperature of Extremity Warm -Capillary Refill Less than 3 Seconds -Dependent Rubor No -Blanched when Elevated No -Lipodermatosclerosis No -Other Deformity No -Prior Foot Ulcer No -Charcot Joint No -Prior Amputation No -Thick Yes -Discolored No -Deformed Yes -Improper Length & Hygeine No Right -Posterior Tibial Palpable Yes -Posterior Tibial Doppler Multiphasic -Dorsalis Pedis Palpable Yes -Dorsalis Pedis Doppler Multiphasic -Extremity Color Normal -Hair Growth on Legs No -Hair Growth on Toes No -Temperature of Extremity Warm -Capillary Refill Less than 3 Seconds -Dependent Rubor No -Blanched when Elevated No -Lipodermatosclerosis No -Other Deformity No -Prior Foot Ulcer No -Charcot Joint No -Prior Amputation No -Thick Yes -Discolored No -Deformed Yes -Improper Length & Hygeine No Neuropathy Assessment Feet - Top Side and Bottom <Entered> (a) Communication Assessment Preferred language Setswana Able to Read Yes Able to Write Yes Right Hearing Abillity Normal Left Hearing Abillity Normal Visual Assistive Devices Glasses Teaching Assessment Preferences Verbal,Written Barriers to Learning None,Knowledge Deficit Readiness To Learn Good Willingness to Engage in Self Management Med Activies Readiness to Engage in Self Management Med Activities Anxiety Level Calm Cooperation Cooperative Perception Coherent Interest in Health Problem Asks Questions Education Importance Acknowledges Need Does Patient Smoke tobacco or other Yes substances Smoking Status Current every day smoker Is Patient Diabetic Yes Functional Assessment Recent Decline in Ability to Perform Denies Any Declines Assistive Device With Patient N/A Culture/Rastafarian/Child Support Officer Cultural/Rastafarian Needs that may affect No Treatment Plan Would you allow our hospital radiophone operator to No meet you for the purpose of spiritual/ emotional support? Child Support Officer to contact place of roman catholic No Teaching: Wound Center Discharge Instructions -Person Taught Patient *Welcome to the Wound Center -Person Taught Patient (a) 1 - + WC - Nurse 1 - General Ulcer Measurement Start: 06/20/23 14:52 Freq: Status: Active Protocol: Activity Type Activity Date Activity User E-sign Co-sign Detail Recorded Client Recorded Date Recorded By Document 06/20/23 14:54 DL Desktop 06/20/23 15:13 DL Document 06/27/23 14:50 KW Desktop 06/27/23 15:01 KW 06/20/23 06/27/23 14:54 14:50 Wound Center Nurse 1 #1 R post LE -Current Size (cm) - Length 1.5 1.5 -Current Size (cm) - Width 1 1.2 -Current Size (cm) - Depth 0.1 0.1 -Total Square Cm 1.5 1.80 -Photo Taken Yes -Tunneling No -Undermining/Tunneling No -Exudate Amt Small Small -Exudate Type Serosanguineous Serosanguineous -Wound Margin Distinct, Distinct, Outline Outline Attached Attached -Granulation Amt Small (1-33%) Medium (34-66%) -Granulation Quality Lyden Lyden -Necrosis Amt Small (1-33%) Small (1-33%) -Necrotic Tissue Type Adherent Slough Adherent Slough -Structure Exposed N/A -Texture (Rachele-wound Skin Appearance) Localized Edema Assessed, Localized Edema -Moisture (Rachele-wound Skin Appearance) No Abnormality Assessed -Color (Rachele-wound Skin Appearance) No Abnormality, Assessed, Erythema Erythema -Temperature (Rachele-wound Skin No Abnormality No Abnormality Appearance) (Pt Warm) (Pt Warm) -Tenderness on Palpation (Rachele-wound No Skin Appearance) -Ulcer Cleansing Soap and Water Rinsed/ Irrigated with Saline -Foul Odor after Cleansing No No -Anesthetic Used 5% Lidocaine 5% Lidocaine Gel Gel Right Calf (cm) 64 64.5 Right Ankle (cm) 34.5 23 Left Calf (cm) 58 Left Ankle (cm) 33.4 - Nurse 2 - General Ulcer CM Notes Start: 06/20/23 14:52 Freq: Status: Active Protocol: Activity Type Activity Date Activity User E-sign Co-sign Detail Recorded Client Recorded Date Recorded By Document 06/20/23 15:28 JF Laptop 06/20/23 15:35 JF Document 06/27/23 15:41 Laptop 06/27/23 15:43 06/20/23 06/27/23 15:28 15:41 Wound Center Nurse 2 #1 R post LE -Time 15:30 15:42 -Correct Patient Yes Yes -Correct Side, Site, Position Yes Yes -Correct Procedure Yes Yes -Procedure Performed Yes Yes -Type of Procedure Debridement Debridement -Clinical Debridement Subcutaneous Subcutaneous -Tissue Removed Subcutaneous Subcutaneous -Post Debridement (cm) - Length 0.5 1.5 -Post Debridement (cm) - Width 0.5 0.7 -Post Debridement (cm) - Depth 0.1 0.1 -Total Square (Post) (cm) 0.25 1.05 -Area of Debridement (cm) - Length 0.5 1.5 -Area of Debridement (cm) - Width 0.5 0.7 -Total Square (Area) (cm) 0.25 1.05 -Tunneling No No -Undermining/Tunneling No No -Circular Undermining No No -Wound/Ulcer Outcome Not Healed Not Healed -Ulcer Cleansing Rinsed/ Rinsed/ Irrigated with Irrigated with Saline Saline -Foul Odor after Cleansing No No -Bioengineered Tissue No No -Bleeding Controlled with Pressure Pressure -Treatment Response Procedure Procedure Tolerated Well Tolerated Well -Offloading No No -Debridement - Subq, 1st 20sq cm Yes Yes Pain Scale: 0-10 Numeric Is Patient Pain Free? Yes Yes - Nurse 3 - General Ulcer D/C NN Start: 06/20/23 14:52 Freq: Status: Active Protocol: Activity Type Activity Date Activity User E-sign Co-sign Detail Recorded Client Recorded Date Recorded By Document 06/20/23 15:45 DL Desktop 06/20/23 15:46 DL Document 06/27/23 15:50 GM Desktop 06/27/23 15:59 GM 06/20/23 06/27/23 15:45 15:50 Wound Care Center Nurse 3 #1 R post LE -Ulcer Cleansing Rinsed/ Not Cleansed Irrigated with Saline -Foul Odor after Cleansing No No -Negative Pressure Wound Therapy N/A -Other Dressing bacitracin triple antibiotic -Primary Dressing Covered/Secured with Dry Gauze, Dry Gauze Secured with Tape Right -Multi-Layered Wrap Application Multi-Layer Comp - Bilat ($ ) -Tubular Bandage Double Layer -Size of Tubigrip Used Size F -Size F ($) 2 Treatment Response Procedure Procedure Tolerated Well Tolerated Well Pain Scale: 0-10 Numeric Is Patient Pain Free? 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 All findings were discussed with the patient. All questions were answered to the patient's faction. Excisional debridement down to and including subcutaneous tissue with number 5 mm dermal curette to the full-thickness ulceration to the posterior right calf. Predebridement measurements were 1.4 x 0.6 x 0.1 cm. Postdebridement measurement is 1.5 x 0.7 x 0.1 cm. Wound will be dressed with triple ointment antibiotic, Adaptic, and bilateral 3M compression wraps. Reviewed the patient's arterial studies that show evidence of noncompressible vessels to the right lower extremity. This finding is believed to be from the patient body habitus with unsuccessful study secondary to inability for the vascular lab to get the cuffs around her right leg. Follow-up in 1 week (2) Diabetes mellitus with diabetic polyneuropathy: CODE(S): E11.42 - Type 2 diabetes mellitus with diabetic polyneuropathy QUALIFIERS: Diabetes mellitus type: type 2 Diabetes mellitus termite control servicer insulin use: with snf use Qualified Code(s): E11.42 - Type 2 diabetes mellitus with diabetic polyneuropathy; Z79.4 - ferry terminal agent (current) use of insulin (3) Lymphedema: CODE(S): I89.0 - Lymphedema, not elsewhere classified PLAN: Patient's bilateral lower extremity were wrapped in 3M compression wraps. The wrap to remain clean dry and intact for 1 week. (4) Morbidly obese: CODE(S): E66.01 - Morbid (severe) obesity due to excess calories PLAN: Patient will contact her primary care doctor for referral to bariatric surgeon for consultation.
[2023-07-04 15:03] VITALS: BP 173/88; PULSE 107; TEMP 35.5; BMI 62.5
--- NOTE | 2023-07-04 16:49 | PN.PCM_ITS ---
History of Present Illness Date of Service: 07/04/23 Chief Complaint: Ulceration right posterior leg History of Wound: Ulceration right posterior leg Progress of Wound: Mrs. Rodriguez is a 42-year-old diabetic female sending to [place] [facility] today for follow-up and evaluation of ulceration to the posterior aspect of the right leg. Patient was seen by an outside provider where she had gone through 3 rounds of oral antibiotics, Bactrim's and still has evidence of ulceration and redness to her right leg. She has tried to compress her leg but the dressing always falls down or is not tight enough. Patient is concerned that she still has an infection to the right leg. She also has a small laceration appreciated plantar aspect of her right foot. She does not wear diabetic shoes. She is wearing an older pair shoes is very easy to get on and off. Her left lower extremity is unremarkable at this time. She denies any new onset of trauma. She denies constitutional symptoms. No other complaints at this time. Subjective Subjective Ms. Rodriguez is a 42-year-old diabetic female presenting to the wound care center today at [facility] for follow-up evaluation of posterior ulceration to the right calf. Patient states her blood sugar has been controlled. She was wearing her wraps but took them down 1 day ago since they rolled down. She states she is still having pain to the posterior aspect of her right calf. She denies any trauma. Denies constitutional symptoms. No other pedal complaints at this time. Objective Data Objective Data Vital Signs: Vital Signs Temp Pulse Resp BP O2 Del Method 95.9 F L 107 H 18 173/88 H Room Air 07/04/23 15:03 07/04/23 15:03 06/27/23 14:50 07/04/23 15:03 07/04/23 15:03 Oxygen Delivery Method Room Air Weight: 160.223 kg Body Mass Index (BMI) 62.5 Physical Exam Narrative Neurovascular status unchanged. Evidence of full-thickness ulceration of the posterior calf measuring 1.1 x 1.7 x 0.1 cm. Wound base is fibrogranular in nature. Sanguinous drainage noted. No sign of infection. Erythema to the leg is blanchable without proximal streaking. Pain on palpation to full-thickness ulceration. No pain with calf compression. Excisional debridement down to and including subcutaneous tissue with number 5 mm dermal curette to the full-thickness ulceration to the posterior right calf. Predebridement measurements were 0.9 x 1.6 x 0.1 cm. Postdebridement measurement is 1.1 x 1.7 x 0.1 cm. Wound will be dressed with triple ointment antibiotic, dry sterile dressing and double layer Tubigrip. Debridement Note Debridement Note Debridement Free Text: Excisional debridement down to and including subcutaneous tissue with number 5 mm dermal curette to the full-thickness ulceration to the posterior right calf. Predebridement measurements were 0.9 x 1.6 x 0.1 cm. Postdebridement measurement is 1.1 x 1.7 x 0.1 cm. Wound will be dressed with triple ointment antibiotic, dry sterile dressing and double layer Tubigrip. Post-Debridement Measurements and Additional Note: Post-Debridement Measurements/Treatment WC - Nurse 1 - General Ulcer Assessment Start: 06/20/23 14:52 Freq: Status: Active Protocol: WATSON Activity Type Activity Date Activity User E-sign Co-sign Detail Recorded Client Recorded Date Recorded By Document 06/20/23 14:54 DL Desktop 06/20/23 15:13 DL Document 06/27/23 14:50 KW Desktop 06/27/23 15:01 KW Document 07/04/23 15:03 GM Desktop 07/04/23 15:08 GM 06/20/23 06/27/23 07/04/23 14:54 14:50 15:03 - Today's Visit Information Type of service Initial Visit Follow-up Visit Follow-up Visit (Physician/TELEVISION PRODUCTION ASSISTANT (Physician/TELEVISION PRODUCTION ASSISTANT ) ) Arrival Mode Ambulatory Ambulatory Ambulatory Transfer Assistance None None Patient Identification Verified (Name & Yes Yes Yes ) Patient Requires Transmission-Based No No Precautions Finger Stick Blood Sugar(mg/dl) (if 195 indicated): Blood Sugar Stated by Patient Height and Weight Height 5 ft 3 in Weight 160.223 kg Weight in Pounds 353.2 lbs Body Mass Index (BMI) 62.5 62.5 62.5 BMI Classification Obese Obese Obese BSA - [place] 2.46 Vital Signs Temperature (97.8 F-99.1 F) 96.9 F L 97.1 F L 95.9 F L Temperature Source Temporal Temporal Temporal Pulse Rate (60-100) 116 H 85 107 H Pulse Location Monitor Monitor Monitor Respiratory Rate (12-18) 22 H 18 Respiratory rate source Observation Observation Oxygen Delivery Method Room Air Room Air Blood Pressure (90/60-120/80) 154/87 H 158/103 H 173/88 H Blood Pressure Mean (mm Hg) 109 121 116 Source Monitor Monitor Monitor Position Supine Semi-Fowlers Semi-Fowlers Blood Pressure Location Left Forearm Right Arm History Since Last Visit- (Skip if this is Patient's initial visit) Have you changed medications since your No No last visit? Any new allergies or adverse reactions No No Had a fall/change in ADL's that may No No increase risk of falls Signs or symptoms of abuse and/or No No neglect since last visit Have you been in the hospital since your No No last visit? Has dressing in place as prescribed Yes Yes Has compression in place as prescribed Yes Yes Has offloadiing in place as prescribed No N/A Experienced any changes in pain level or No No management Left Footwear Regular Shoe Slipper Regular Shoe Right Footwear Regular Shoe Slipper Regular Shoe Pain Scale: 0-10 Numeric Is Patient Pain Free? Yes Yes Yes Lower Extremity Assessment/ Foot Assessment/ Toe Nail Assessment Left -Posterior Tibial Palpable Yes -Posterior Tibial Doppler Multiphasic -Dorsalis Pedis Palpable Yes -Dorsalis Pedis Doppler Multiphasic -Extremity Color Normal -Hair Growth on Legs No -Hair Growth on Toes No -Temperature of Extremity Warm -Capillary Refill Less than 3 Seconds -Dependent Rubor No -Blanched when Elevated No -Lipodermatosclerosis No -Other Deformity No -Prior Foot Ulcer No -Charcot Joint No -Prior Amputation No -Thick Yes -Discolored No -Deformed Yes -Improper Length & Hygeine No Right -Posterior Tibial Palpable Yes -Posterior Tibial Doppler Multiphasic -Dorsalis Pedis Palpable Yes -Dorsalis Pedis Doppler Multiphasic -Extremity Color Normal -Hair Growth on Legs No -Hair Growth on Toes No -Temperature of Extremity Warm -Capillary Refill Less than 3 Seconds -Dependent Rubor No -Blanched when Elevated No -Lipodermatosclerosis No -Other Deformity No -Prior Foot Ulcer No -Charcot Joint No -Prior Amputation No -Thick Yes -Discolored No -Deformed Yes -Improper Length & Hygeine No Neuropathy Assessment Feet - Top Side and Bottom <Entered> (a) Communication Assessment Preferred language Latvian Able to Read Yes Able to Write Yes Right Hearing Abillity Normal Left Hearing Abillity Normal Visual Assistive Devices Glasses Teaching Assessment Preferences Verbal,Written Barriers to Learning None,Knowledge Deficit Readiness To Learn Good Willingness to Engage in Self Management Med Activies Readiness to Engage in Self Management Med Activities Anxiety Level Calm Cooperation Cooperative Perception Coherent Interest in Health Problem Asks Questions Education Importance Acknowledges Need Does Patient Smoke tobacco or other Yes substances Smoking Status Current every day smoker Is Patient Diabetic Yes Functional Assessment Recent Decline in Ability to Perform Denies Any Declines Assistive Device With Patient N/A Culture/Sabianist/Bilingual Speech Therapist Cultural/Sabianist Needs that may affect No Treatment Plan Would you allow our hospital human resources assistant to No meet you for the purpose of spiritual/ emotional support? Bilingual Speech Therapist to contact place of scientology No Teaching: Wound Center Discharge Instructions -Person Taught Patient *Welcome to the Wound Center -Person Taught Patient (a) 1 - + WC - Nurse 1 - General Ulcer Measurement Start: 06/20/23 14:52 Freq: Status: Active Protocol: Activity Type Activity Date Activity User E-sign Co-sign Detail Recorded Client Recorded Date Recorded By Document 06/20/23 14:54 DL Desktop 06/20/23 15:13 DL Document 06/27/23 14:50 KW Desktop 06/27/23 15:01 KW Document 07/04/23 15:03 GM Desktop 07/04/23 15:08 GM 06/20/23 06/27/23 07/04/23 14:54 14:50 15:03 Wound Center Nurse 1 #1 R post LE -Combined with other wound No -Current Size (cm) - Length 1.5 1.5 1.5 -Current Size (cm) - Width 1 1.2 0.9 -Current Size (cm) - Depth 0.1 0.1 0.1 -Total Square Cm 1.5 1.80 1.35 -Photo Taken Yes -Epithelialization None Present -Tunneling No No -Undermining/Tunneling No No -Circular Undermining No -Exudate Amt Small Small -Exudate Type Serosanguineous Serosanguineous -Wound Margin Distinct, Distinct, Distinct, Outline Outline Outline Attached Attached Attached -Granulation Amt Small (1-33%) Medium (34-66%) Large (67-100%) -Granulation Quality [place] -Necrosis Amt Small (1-33%) Small (1-33%) -Necrotic Tissue Type Adherent Slough Adherent Slough -Structure Exposed N/A N/A -Texture (Rachele-wound Skin Appearance) Localized Edema Assessed, Assessed Localized Edema -Moisture (Rachele-wound Skin Appearance) No Abnormality Assessed Assessed -Color (Rachele-wound Skin Appearance) No Abnormality, Assessed, Assessed Erythema Erythema -Temperature (Rachele-wound Skin No Abnormality No Abnormality Appearance) (Pt Warm) (Pt Warm) -Tenderness on Palpation (Rachele-wound No Skin Appearance) -Ulcer Cleansing Soap and Water Rinsed/ Irrigated with Saline -Foul Odor after Cleansing No No -Anesthetic Used 5% Lidocaine 5% Lidocaine Gel Gel Lower Limb Edema Present Yes Right Calf (cm) 64 64.5 64 Right Ankle (cm) 34.5 23 31.4 Left Calf (cm) 58 52.9 Point of measurement (cm from the medial 29.3 instep) Left Ankle (cm) 33.4 WC - Nurse 2 - General Ulcer CM Notes Start: 06/20/23 14:52 Freq: Status: Active Protocol: Activity Type Activity Date Activity User E-sign Co-sign Detail Recorded Client Recorded Date Recorded By Document 06/20/23 15:28 [email or web address] Laptop 06/20/23 15:35 Document 06/27/23 15:41 [email or web address] Laptop 06/27/23 15:43 Document 07/04/23 15:42 [email or web address] Laptop 07/04/23 15:45 06/20/23 06/27/23 07/04/23 15:28 15:41 15:42 Wound Center Nurse 2 #1 R post LE -Time 15:30 15:42 15:42 -Correct Patient Yes Yes Yes -Correct Side, Site, Position Yes Yes Yes -Correct Procedure Yes Yes Yes -Procedure Performed Yes Yes Yes -Type of Procedure Debridement Debridement Debridement -Clinical Debridement Subcutaneous Subcutaneous Subcutaneous -Tissue Removed Subcutaneous Subcutaneous Subcutaneous -Post Debridement (cm) - Length 0.5 1.5 1.1 -Post Debridement (cm) - Width 0.5 0.7 1.7 -Post Debridement (cm) - Depth 0.1 0.1 0.1 -Total Square (Post) (cm) 0.25 1.05 1.87 -Area of Debridement (cm) - Length 0.5 1.5 1.1 -Area of Debridement (cm) - Width 0.5 0.7 1.7 -Total Square (Area) (cm) 0.25 1.05 1.87 -Tunneling No No No -Undermining/Tunneling No No No -Circular Undermining No No No -Wound/Ulcer Outcome Not Healed Not Healed Not Healed -Ulcer Cleansing Rinsed/ Rinsed/ Rinsed/ Irrigated with Irrigated with Irrigated with Saline Saline Saline -Foul Odor after Cleansing No No No -Bioengineered Tissue No No No -Bleeding Controlled with Pressure Pressure Pressure -Treatment Response Procedure Procedure Procedure Tolerated Well Tolerated Well Tolerated Well -Offloading No No No -Debridement - Subq, 1st 20sq cm Yes Yes Yes Pain Scale: 0-10 Numeric Is Patient Pain Free? Yes Yes Yes - Nurse 3 - General Ulcer D/C NN Start: 06/20/23 14:52 Freq: Status: Active Protocol: Activity Type Activity Date Activity User E-sign Co-sign Detail Recorded Client Recorded Date Recorded By Document 06/20/23 15:45 DL Desktop 06/20/23 15:46 DL Document 06/27/23 15:50 GM Desktop 06/27/23 15:59 GM Document 07/04/23 15:51 KW Desktop 07/04/23 15:55 KW 06/20/23 06/27/23 07/04/23 15:45 15:50 15:51 Wound Care Center Nurse 3 #1 R post LE -Ulcer Cleansing Rinsed/ Not Cleansed Irrigated with Saline -Foul Odor after Cleansing No No -Negative Pressure Wound Therapy N/A -Other Dressing bacitracin triple antibiotic -Primary Dressing Covered/Secured with Dry Gauze, Dry Gauze Dry Gauze & Secured with Roll Gauze, Tape Secured with Tape Left -Tubular Bandage Double Layer -Size of Tubigrip Used Size F -Size F ($) 2 Right -Multi-Layered Wrap Application Multi-Layer Comp - Bilat ($ ) -Tubular Bandage Double Layer Double Layer -Size of Tubigrip Used Size F Size F -Size F ($) 2 2 Treatment Response Procedure Procedure Tolerated Well Tolerated Well Pain Scale: 0-10 Numeric Is Patient Pain Free? Yes Yes Yes - Visit Discharge Discharge Condition Stable Stable Stable Ambulatory Status Ambulatory Ambulatory Ambulatory Transportation Private Auto Private Auto Private Auto Medication Reconcilliation completed & No provided to patient/care provider Clinical Summary of Care Provided Yes Assessment/Plan Assessment/Plan (1) Ulcer of right lower extremity with fat layer exposed: CODE(S): L97.912 - Non-pressure chronic ulcer of unspecified part of right lower leg with fat layer exposed PLAN: Patient was examined evaluated. All findings were discussed with the patient. All questions were answered to the patient satisfaction. Excisional debridement down to and including subcutaneous tissue with number 5 mm dermal curette to the full-thickness ulceration to the posterior right calf. Predebridement measurements were 0.9 x 1.6 x 0.1 cm. Postdebridement measurement is 1.1 x 1.7 x 0.1 cm. Wound will be dressed with triple ointment antibiotic, dry sterile dressing and double layer Tubigrip. A prescription for Santyl will be placed to the patient's pharmacy to apply nickel thick to the posterior calf followed by moist saline gauze and to tape in place with dry sterile dressing. Patient is to change this daily. We will review radiographs of the right lower extremity when the patient returns in 1 week. (2) Diabetes mellitus with diabetic polyneuropathy: CODE(S): E11.42 - Type 2 diabetes mellitus with diabetic polyneuropathy QUALIFIERS: Diabetes mellitus type: type 2 Diabetes mellitus terminal operations manager insulin use: with detention use Qualified Code(s): E11.42 - Type 2 diabetes mellitus with diabetic polyneuropathy; Z79.4 - watermelon inspector (current) use of insulin PLAN: At the time of today's visit the patient showed evidence of drinking sugary soda drink (caal Pepsi) which contain 70 g of sugar. Patient stressed that this was the first time she had had a soda in 1 month. She admits that her blood sugar when tested was 180 mg/dL. We are seeing and concern for noncompliance with strict glycemic control which was educated to the patient. (3) Lymphedema: CODE(S): I89.0 - Lymphedema, not elsewhere classified PLAN: Patient to continue to wear bilateral compression stockings. (4) Calciphylaxis: CODE(S): E83.59 - Other disorders of calcium metabolism PLAN: Right lower extremity tib-fib films were ordered today to rule out any calciphylaxis to the soft tissue that may be causing the patient to have a chronic nonhealing ulceration to the posterior right calf.
[2023-07-11 14:43] VITALS: BP 146/80; PULSE 108; TEMP 36.4; BMI 62.5
--- NOTE | 2023-07-11 16:00 | LES_PTH ---
PATIENT: ANDRES BOB LOC: U#:[id number] AGE/SX: 42/F ROOM: RE07/11/[address]: Dr. Sebas Lord DPM : 1980 BED: DIS: 07/17/2023 SPEC #: [id number] RECD: 07/11/23 16:31 STATUS: FELIPE RETete #: [id number] GABRIELLA: 07/11/23 16:[address]: Sebas Lord DEPT: SURGICAL PATHOLOGY RECD BY: Ana Nunes ENTERED: 07/12/23 08:21 SP TYPE: Lesion OTHR DR: MD Zora Zheng, TYPEWRITERS FUNCTIONAL TESTER-C Tissues: Skin of leg, NOS Procedures: Special Stain Group I Surgery Specimen Level IV GMS Stain (control) HEADER OPERATION: Tissue excision from right posterior calf ulcer PRE-OP DIAGNOSIS: Nonhealing ulcer right posterior calf ulcer TISSUE SUBMITTED: Tissue biopsy right posterior calf ulcer MICROSCOPIC DIAGNOSIS Right posterior calf ulcer, punch biopsy: Focal ulceration, acute and chronic inflammation and granulation tissue reaction. Negative for malignancy. See comment. SYDNEY:manoj 07/13/2023 COMMENT Special stain for fungi is negative for organisms; matched control is appropriate. MICROSCOPIC DESCRIPTION Slides are reviewed. GROSS DESCRIPTION Received in fixative is one container labeled with the patient's name and designated right posterior leg ulcer biopsy. The specimen consists of a punch biopsy of grullon-white skin measuring 0.5 cm in diameter and 0.5 cm in length. The entire specimen is submitted in one cassette. / SYDNEY:manoj 07/12/2023 TC:2 CPT: 61809, 59772
--- NOTE | 2023-07-11 16:27 | PCM.WC.PN ---
History of Present Illness Date of Service: 07/11/23 Chief Complaint: Ulceration right posterior leg History of Wound: Ulceration right posterior leg Progress of Wound: Mrs. Rodriguez is a 42-year-old diabetic female sending to [facility] today for follow-up and evaluation of ulceration to the posterior aspect of the right leg. Patient was seen by an outside provider where she had gone through 3 rounds of oral antibiotics, Bactrim's and still has evidence of ulceration and redness to her right leg. She has tried to compress her leg but the dressing always falls down or is not tight enough. Patient is concerned that she still has an infection to the right leg. She also has a small laceration appreciated plantar aspect of her right foot. She does not wear diabetic shoes. She is wearing an older pair shoes is very easy to get on and off. Her left lower extremity is unremarkable at this time. She denies any new onset of trauma. She denies constitutional symptoms. No other complaints at this time. Subjective Subjective Ms. Rodriguez is a 42-year-old diabetic female presenting to the wound care center today at [facility] for follow-up evaluation of posterior ulceration to the right calf. Patient states her blood sugar has been controlled. She was wearing her wraps but took them down 1 day ago since they rolled down. She states she is still having pain to the posterior aspect of her right calf. She denies any trauma. Denies constitutional symptoms. No other pedal complaints at this time. Objective Data Objective Data Vital Signs: Vital Signs Temp Pulse Resp BP O2 Del Method 97.6 F L 108 H 18 146/80 H Simple Mask 07/11/23 14:43 07/11/23 14:43 06/27/23 14:50 07/11/23 14:43 07/11/23 14:43 Oxygen Delivery Method Simple Mask Weight: 160.223 kg Body Mass Index (BMI) 62.5 Physical Exam Narrative Neurovascular status unchanged. Evidence of full-thickness ulceration of the posterior calf measuring 1.1 x 1.7 x 0.1 cm. Wound base is fibrogranular in nature. Sanguinous drainage noted. No sign of infection. Erythema to the leg is blanchable without proximal streaking. Pain on palpation to full-thickness ulceration. No pain with calf compression. Debridement Note Debridement Note Post-Debridement Measurements and Additional Note: Post-Debridement Measurements/Treatment WC - Nurse 1 - General Ulcer Assessment Start: 06/20/23 14:52 Freq: Status: Active Protocol: WATSON Activity Type Activity Date Activity User E-sign Co-sign Detail Recorded Client Recorded Date Recorded By Document 06/20/23 14:54 DL Desktop 06/20/23 15:13 DL Document 06/27/23 14:50 KW Desktop 06/27/23 15:01 KW Document 07/04/23 15:03 GM Desktop 07/04/23 15:08 GM Document 07/11/23 14:43 GM Desktop 07/11/23 14:49 GM 06/20/23 06/27/23 07/04/23 14:54 14:50 15:03 WC - Today's Visit Information Type of service Initial Visit Follow-up Visit Follow-up Visit (Physician/BUSINESS SYSTEMS ADMINISTRATOR (Physician/BUSINESS SYSTEMS ADMINISTRATOR ) ) Arrival Mode Ambulatory Ambulatory Ambulatory Transfer Assistance None None Patient Identification Verified (Name & Yes Yes Yes ) Patient Requires Transmission-Based No No Precautions Finger Stick Blood Sugar(mg/dl) (if 195 indicated): Blood Sugar Stated by Patient Height and Weight Height 5 ft 3 in Weight 160.223 kg Weight in Pounds 353.2 lbs Body Mass Index (BMI) 62.5 62.5 62.5 BMI Classification Obese Obese Obese BSA - Nury 2.46 Vital Signs Temperature (97.8 F-99.1 F) 96.9 F L 97.1 F L 95.9 F L Temperature Source Temporal Temporal Temporal Pulse Rate (60-100) 116 H 85 107 H Pulse Location Monitor Monitor Monitor Respiratory Rate (12-18) 22 H 18 Respiratory rate source Observation Observation Oxygen Delivery Method Room Air Room Air Blood Pressure (90/60-120/80) 154/87 H 158/103 H 173/88 H Blood Pressure Mean (mm Hg) 109 121 116 Source Monitor Monitor Monitor Position Supine Semi-Fowlers Semi-Fowlers Blood Pressure Location Left Forearm Right Arm History Since Last Visit- (Skip if this is Patient's initial visit) Have you changed medications since your No No last visit? Any new allergies or adverse reactions No No Had a fall/change in ADL's that may No No increase risk of falls Signs or symptoms of abuse and/or No No neglect since last visit Have you been in the hospital since your No No last visit? Has dressing in place as prescribed Yes Yes Has compression in place as prescribed Yes Yes Has offloadiing in place as prescribed No N/A Experienced any changes in pain level or No No management Left Footwear Regular Shoe Slipper Regular Shoe Right Footwear Regular Shoe Slipper Regular Shoe Pain Scale: 0-10 Numeric Is Patient Pain Free? Yes Yes Yes Lower Extremity Assessment/ Foot Assessment/ Toe Nail Assessment Left -Posterior Tibial Palpable Yes -Posterior Tibial Doppler Multiphasic -Dorsalis Pedis Palpable Yes -Dorsalis Pedis Doppler Multiphasic -Extremity Color Normal -Hair Growth on Legs No -Hair Growth on Toes No -Temperature of Extremity Warm -Capillary Refill Less than 3 Seconds -Dependent Rubor No -Blanched when Elevated No -Lipodermatosclerosis No -Other Deformity No -Prior Foot Ulcer No -Charcot Joint No -Prior Amputation No -Thick Yes -Discolored No -Deformed Yes -Improper Length & Hygeine No Right -Posterior Tibial Palpable Yes -Posterior Tibial Doppler Multiphasic -Dorsalis Pedis Palpable Yes -Dorsalis Pedis Doppler Multiphasic -Extremity Color Normal -Hair Growth on Legs No -Hair Growth on Toes No -Temperature of Extremity Warm -Capillary Refill Less than 3 Seconds -Dependent Rubor No -Blanched when Elevated No -Lipodermatosclerosis No -Other Deformity No -Prior Foot Ulcer No -Charcot Joint No -Prior Amputation No -Thick Yes -Discolored No -Deformed Yes -Improper Length & Hygeine No Neuropathy Assessment Feet - Top Side and Bottom <Entered> (a) Communication Assessment Preferred language Greek Able to Read Yes Able to Write Yes Right Hearing Abillity Normal Left Hearing Abillity Normal Visual Assistive Devices Glasses Teaching Assessment Preferences Verbal,Written Barriers to Learning None,Knowledge Deficit Readiness To Learn Good Willingness to Engage in Self Management Med Activies Readiness to Engage in Self Management Med Activities Anxiety Level Calm Cooperation Cooperative Perception Coherent Interest in Health Problem Asks Questions Education Importance Acknowledges Need Does Patient Smoke tobacco or other Yes substances Smoking Status Current every day smoker Is Patient Diabetic Yes Functional Assessment Recent Decline in Ability to Perform Denies Any Declines Assistive Device With Patient N/A Culture/Mormon/Air Conditioner Installer Helper Cultural/Mormon Needs that may affect No Treatment Plan Would you allow our hospital pony roll finisher to No meet you for the purpose of spiritual/ emotional support? Air Conditioner Installer Helper to contact place of evangelical No Teaching: Wound Center Discharge Instructions -Person Taught Patient *Welcome to the Wound Center -Person Taught Patient 07/11/23 14:43 WC - Today's Visit Information Type of service Follow-up Visit (Physician/BUSINESS SYSTEMS ADMINISTRATOR ) Arrival Mode Ambulatory Transfer Assistance None Patient Identification Verified (Name & Yes ) Patient Requires Transmission-Based No Precautions Finger Stick Blood Sugar(mg/dl) (if indicated): Blood Sugar Height and Weight Height Weight Weight in Pounds Body Mass Index (BMI) 62.5 BMI Classification Obese BSA - Nury Vital Signs Temperature (97.8 F-99.1 F) 97.6 F L Temperature Source Temporal Pulse Rate (60-100) 108 H Pulse Location Monitor Respiratory Rate (12-18) Respiratory rate source Oxygen Delivery Method Simple Mask Blood Pressure (90/60-120/80) 146/80 H Blood Pressure Mean (mm Hg) 102 Source Monitor Position Sitting Blood Pressure Location History Since Last Visit- (Skip if this is Patient's initial visit) Have you changed medications since your No last visit? Any new allergies or adverse reactions No Had a fall/change in ADL's that may No increase risk of falls Signs or symptoms of abuse and/or No neglect since last visit Have you been in the hospital since your No last visit? Has dressing in place as prescribed No Has compression in place as prescribed No Has offloadiing in place as prescribed No Experienced any changes in pain level or No management Left Footwear Slipper Right Footwear Slipper Pain Scale: 0-10 Numeric Is Patient Pain Free? Yes Lower Extremity Assessment/ Foot Assessment/ Toe Nail Assessment Left -Posterior Tibial Palpable -Posterior Tibial Doppler -Dorsalis Pedis Palpable -Dorsalis Pedis Doppler -Extremity Color -Hair Growth on Legs -Hair Growth on Toes -Temperature of Extremity -Capillary Refill -Dependent Rubor -Blanched when Elevated -Lipodermatosclerosis -Other Deformity -Prior Foot Ulcer -Charcot Joint -Prior Amputation -Thick -Discolored -Deformed -Improper Length & Hygeine Right -Posterior Tibial Palpable -Posterior Tibial Doppler -Dorsalis Pedis Palpable -Dorsalis Pedis Doppler -Extremity Color -Hair Growth on Legs -Hair Growth on Toes -Temperature of Extremity -Capillary Refill -Dependent Rubor -Blanched when Elevated -Lipodermatosclerosis -Other Deformity -Prior Foot Ulcer -Charcot Joint -Prior Amputation -Thick -Discolored -Deformed -Improper Length & Hygeine Neuropathy Assessment Feet - Top Side and Bottom Communication Assessment Preferred language Able to Read Able to Write Right Hearing Abillity Left Hearing Abillity Visual Assistive Devices Teaching Assessment Preferences Barriers to Learning Readiness To Learn Willingness to Engage in Self Management Activies Readiness to Engage in Self Management Activities Anxiety Level Cooperation Perception Interest in Health Problem Education Importance Does Patient Smoke tobacco or other substances Smoking Status Is Patient Diabetic Functional Assessment Recent Decline in Ability to Perform Assistive Device With Patient Culture/Mormon/Air Conditioner Installer Helper Cultural/Mormon Needs that may affect Treatment Plan Would you allow our hospital pony roll finisher to meet you for the purpose of spiritual/ emotional support? Air Conditioner Installer Helper to contact place of evangelical Teaching: Wound Center Discharge Instructions -Person Taught *Welcome to the Wound Center -Person Taught (a) 1 - + WC - Nurse 1 - General Ulcer Measurement Start: 06/20/23 14:52 Freq: Status: Active Protocol: Activity Type Activity Date Activity User E-sign Co-sign Detail Recorded Client Recorded Date Recorded By Document 06/20/23 14:54 DL Desktop 06/20/23 15:13 DL Document 06/27/23 14:50 KW Desktop 06/27/23 15:01 KW Document 07/04/23 15:03 GM Desktop 07/04/23 15:08 GM Document 07/11/23 14:43 GM Desktop 07/11/23 14:49 GM 06/20/23 06/27/23 07/04/23 14:54 14:50 15:03 Wound Center Nurse 1 #1 R post LE -Combined with other wound No -Current Size (cm) - Length 1.5 1.5 1.5 -Current Size (cm) - Width 1 1.2 0.9 -Current Size (cm) - Depth 0.1 0.1 0.1 -Total Square Cm 1.5 1.80 1.35 -Photo Taken Yes -Epithelialization None Present -Tunneling No No -Undermining/Tunneling No No -Circular Undermining No -Exudate Amt Small Small -Exudate Type Serosanguineous Serosanguineous -Wound Margin Distinct, Distinct, Distinct, Outline Outline Outline Attached Attached Attached -Granulation Amt Small (1-33%) Medium (34-66%) Large (67-100%) -Granulation Quality Blue Eye Blue Eye Red -Slough/Fibrin -Necrosis Amt Small (1-33%) Small (1-33%) -Necrotic Tissue Type Adherent Slough Adherent Slough -Structure Exposed N/A N/A -Texture (Rachele-wound Skin Appearance) Localized Edema Assessed, Assessed Localized Edema -Moisture (Rachele-wound Skin Appearance) No Abnormality Assessed Assessed -Color (Rachele-wound Skin Appearance) No Abnormality, Assessed, Assessed Erythema Erythema -Temperature (Rachele-wound Skin No Abnormality No Abnormality Appearance) (Pt Warm) (Pt Warm) -Tenderness on Palpation (Rachele-wound No Skin Appearance) -Ulcer Cleansing Soap and Water Rinsed/ Irrigated with Saline -Foul Odor after Cleansing No No -Anesthetic Used 5% Lidocaine 5% Lidocaine Gel Gel Lower Limb Edema Present Yes Right Calf (cm) 64 64.5 64 Right Ankle (cm) 34.5 23 31.4 Left Calf (cm) 58 52.9 Point of measurement (cm from the medial 29.3 instep) Left Ankle (cm) 33.4 07/11/23 14:43 Wound Center Nurse 1 #1 R post LE -Combined with other wound No -Current Size (cm) - Length 1.8 -Current Size (cm) - Width 0.9 -Current Size (cm) - Depth 0.1 -Total Square Cm 1.62 -Photo Taken No -Epithelialization None Present -Tunneling No -Undermining/Tunneling No -Circular Undermining No -Exudate Amt Small -Exudate Type Serous -Wound Margin Distinct, Outline Attached -Granulation Amt Large (67-100%) -Granulation Quality Red -Slough/Fibrin Yes -Necrosis Amt Small (1-33%) -Necrotic Tissue Type -Structure Exposed -Texture (Rachele-wound Skin Appearance) Assessed -Moisture (Rachele-wound Skin Appearance) Assessed -Color (Rachele-wound Skin Appearance) Assessed -Temperature (Rachele-wound Skin No Abnormality Appearance) (Pt Warm) -Tenderness on Palpation (Rachele-wound Skin Appearance) -Ulcer Cleansing Soap and Water -Foul Odor after Cleansing No -Anesthetic Used 5% Lidocaine Gel Lower Limb Edema Present Right Calf (cm) 61.2 Right Ankle (cm) 30 Left Calf (cm) 55.7 Point of measurement (cm from the medial instep) Left Ankle (cm) 30 WC - Nurse 2 - General Ulcer CM Notes Start: 06/20/23 14:52 Freq: Status: Active Protocol: Activity Type Activity Date Activity User E-sign Co-sign Detail Recorded Client Recorded Date Recorded By Document 06/20/23 15:28 JF Laptop 06/20/23 15:35 Document 06/27/23 15:41 Laptop 06/27/23 15:43 Document 07/04/23 15:42 Laptop 07/04/23 15:45 06/20/23 06/27/23 07/04/23 15:28 15:41 15:42 Wound Center Nurse 2 #1 R post LE -Time 15:30 15:42 15:42 -Correct Patient Yes Yes Yes -Correct Side, Site, Position Yes Yes Yes -Correct Procedure Yes Yes Yes -Procedure Performed Yes Yes Yes -Type of Procedure Debridement Debridement Debridement -Clinical Debridement Subcutaneous Subcutaneous Subcutaneous -Tissue Removed Subcutaneous Subcutaneous Subcutaneous -Post Debridement (cm) - Length 0.5 1.5 1.1 -Post Debridement (cm) - Width 0.5 0.7 1.7 -Post Debridement (cm) - Depth 0.1 0.1 0.1 -Total Square (Post) (cm) 0.25 1.05 1.87 -Area of Debridement (cm) - Length 0.5 1.5 1.1 -Area of Debridement (cm) - Width 0.5 0.7 1.7 -Total Square (Area) (cm) 0.25 1.05 1.87 -Tunneling No No No -Undermining/Tunneling No No No -Circular Undermining No No No -Wound/Ulcer Outcome Not Healed Not Healed Not Healed -Ulcer Cleansing Rinsed/ Rinsed/ Rinsed/ Irrigated with Irrigated with Irrigated with Saline Saline Saline -Foul Odor after Cleansing No No No -Bioengineered Tissue No No No -Bleeding Controlled with Pressure Pressure Pressure -Treatment Response Procedure Procedure Procedure Tolerated Well Tolerated Well Tolerated Well -Offloading No No No -Debridement - Subq, 1st 20sq cm Yes Yes Yes Pain Scale: 0-10 Numeric Is Patient Pain Free? Yes Yes Yes PANCHITO - Nurse 3 - General Ulcer D/C NN Start: 06/20/23 14:52 Freq: Status: Active Protocol: Activity Type Activity Date Activity User E-sign Co-sign Detail Recorded Client Recorded Date Recorded By Document 06/20/23 15:45 DL Desktop 06/20/23 15:46 DL Document 06/27/23 15:50 GM Desktop 06/27/23 15:59 GM Document 07/04/23 15:51 KW Desktop 07/04/23 15:55 KW Document 07/11/23 16:15 BMF Desktop 07/11/23 16:16 BMF 06/20/23 06/27/23 07/04/23 15:45 15:50 15:51 Wound Care Center Nurse 3 #1 R post LE -Ulcer Cleansing Rinsed/ Not Cleansed Irrigated with Saline -Foul Odor after Cleansing No No -Negative Pressure Wound Therapy N/A -Other Dressing bacitracin triple antibiotic -Primary Dressing Covered/Secured with Dry Gauze, Dry Gauze Dry Gauze & Secured with Roll Gauze, Tape Secured with Tape -Other Covering Left -Tubular Bandage Double Layer -Size of Tubigrip Used Size F -Size F ($) 2 -Other Right -Multi-Layered Wrap Application Multi-Layer Comp - Bilat ($ ) -Tubular Bandage Double Layer Double Layer -Size of Tubigrip Used Size F Size F -Size F ($) 2 2 Treatment Response Procedure Procedure Tolerated Well Tolerated Well Pain Scale: 0-10 Numeric Is Patient Pain Free? Yes Yes Yes WC - Visit Discharge Discharge Condition Stable Stable Stable Ambulatory Status Ambulatory Ambulatory Ambulatory Transportation Private Auto Private Auto Private Auto Medication Reconcilliation completed & No provided to patient/care provider Clinical Summary of Care Provided Yes 07/11/23 16:15 Wound Care Center Nurse 3 #1 R post LE -Ulcer Cleansing Rinsed/ Irrigated with Saline -Foul Odor after Cleansing No -Negative Pressure Wound Therapy -Other Dressing betadine moist gauze; per kw certified pesticide applicator -Primary Dressing Covered/Secured with -Other Covering abd Left -Tubular Bandage Double Layer -Size of Tubigrip Used Size F -Size F ($) 2 -Other sent an extra Right -Multi-Layered Wrap Application Multi-Layer Comp - Right ($ ) -Tubular Bandage -Size of Tubigrip Used -Size F ($) Treatment Response Pain Scale: 0-10 Numeric Is Patient Pain Free? Yes WC - Visit Discharge Discharge Condition Stable Ambulatory Status Ambulatory Transportation Private Auto Medication Reconcilliation completed & provided to patient/care provider Clinical Summary of Care Provided Assessment/Plan Assessment/Plan (1) Ulcer of right lower extremity with fat layer exposed: CODE(S): L97.912 - Non-pressure chronic ulcer of unspecified part of right lower leg with fat layer exposed PLAN: Patient was examined evaluated. All findings were discussed with the patient. All questions were answered to the patient's satisfaction. Patient shows evidence of a chronic nonhealing ulceration to the posterior aspect of the right calf. Educated the patient on conservative versus surgical treatment. Educated the patient that we could perform a punch biopsy with advancement flap closure to heal her chronic wound. This will also give us the option to send this to the pathologist for diagnosis. Patient was understanding like to move forward with the procedure. Chart review and verbal consent obtained. The right calf was injected with 4 cc of 1% lidocaine plain with epinephrine 1-100,000 without incident. After anesthesia was confirmed. The right calf was prepped and draped in normal aseptic manner. Using a 5 mm punch biopsy. The biopsy was taken from the full-thickness ulceration that was chronic in nature. This was removed passed the back table to be sent off for pathology for diagnosis. Using a #15 blade a longitudinal incision was made approximately 3 to 5 mm fashion, 90 degrees to the punch biopsy to allow for advancement closure. Using 2-0 Prolene and advancement flap was obtained to allow for closure of the punch biopsy site with 2 simple interrupted suture. The right lower extremities were cleaned and patted dry. The area was dressed with Betadine soaked Adaptic, dry sterile dressing and a 3M compression bandage to be donned for 1 week until follow-up. Patient will be sent in a prophylactic dose/prescription of Bactrim DS for 2 weeks to be taken twice daily until gone. She is to take [id number] Motrin or Tylenol as needed for pain. She will follow-up in 1 week. (2) Type 2 diabetes mellitus with foot ulcer: CODE(S): E11.621 - Type 2 diabetes mellitus with foot ulcer; L97.509 - Non-pressure chronic ulcer of other part of unspecified foot with unspecified severity QUALIFIERS: Diabetes mellitus long term care pharmacist insulin use: with penitentiary use Qualified Code(s): E11.621 - Type 2 diabetes mellitus with foot ulcer; L97.509 - Non-pressure chronic ulcer of other part of unspecified foot with unspecified severity; Z79.4 - half-way (current) use of insulin (3) Diabetes mellitus with diabetic polyneuropathy: CODE(S): E11.42 - Type 2 diabetes mellitus with diabetic polyneuropathy QUALIFIERS: Diabetes mellitus type: type 2 Diabetes mellitus long term care pharmacist insulin use: with long term care pharmacist use Qualified Code(s): E11.42 - Type 2 diabetes mellitus with diabetic polyneuropathy; Z79.4 - half-way (current) use of insulin (4) Lymphedema: CODE(S): I89.0 - Lymphedema, not elsewhere classified (5) Morbidly obese: CODE(S): E66.01 - Morbid (severe) obesity due to excess calories
[2023-07-17 11:09] VITALS: BP 173/90; PULSE 105; RESP 18; TEMP 35.6; BMI 62.5
== END 2023-07-17 23:59 | disposition home or self-care (01) ==
LOC: WC 15:00
PROVIDERS: PCP Internal Medicine; Referring Provider Internal Medicine; Visit Provider Podiatrist Foot & Ankle Surgery
DX: E11.622 Type 2 diabetes mellitus with other skin ulcer (principal); L97.212 Non-pressure chronic ulcer of right calf with fat layer exposed; J44.9 Chronic obstructive pulmonary disease, unspecified; F31.9 Bipolar disorder, unspecified; E11.42 Type 2 diabetes mellitus with diabetic polyneuropathy; E66.01 Morbid (severe) obesity due to excess calories; Z79.4 Long term (current) use of insulin; R60.0 Localized edema; I89.0 Lymphedema, not elsewhere classified; S91.311A Laceration without foreign body, right foot, initial encounter; X58.XXXA Exposure to other specified factors, initial encounter; F17.210 Nicotine dependence, cigarettes, uncomplicated; Z79.84 Long term (current) use of oral hypoglycemic drugs; Z79.899 Other long term (current) drug therapy
CPT/HCPCS: 11042; 29581; 88305; 88312; 93923; 93970; 99213; G0463

== ENCOUNTER 2023-08-15 15:15 | Outpatient (RCR) | payer MEDICAID, SELFPAY ==
[2023-07-18 00:29] VITALS: BP 173/90; PULSE 105; RESP 18; TEMP 35.6; BMI 62.5
[2023-07-18 10:01] VITALS: BP 150/96; PULSE 118; RESP 22; TEMP 36.1; BMI 62.5
--- NOTE | 2023-07-18 10:27 | PCM.WC.PN ---
History of Present Illness Date of Service: 07/18/23 Chief Complaint: Ulceration right posterior leg History of Wound: Ulceration right posterior leg Subjective Subjective Ms. Rodriguez is a 42-year-old diabetic female presenting for follow-up of delayed primary closure to the right posterior calf. She has kept her dressing clean dry and intact. She admits they rolled down a little bit secondary to causing her swelling to decrease. She denies any pain in the posterior aspect of the level of the leg primary closure. Her blood sugars well controlled. However she does admit to drinking 0 sugar soda pop as well as smoking. She denies trauma. Denies constitutional symptoms. The patient complains of's time. Objective Data Objective Data Vital Signs: Vital Signs Temp Pulse Resp BP 97 F L 118 H 22 H 150/96 H 07/18/23 10:01 07/18/23 10:01 07/18/23 10:01 07/18/23 10:01 Weight: 160.223 kg Body Mass Index (BMI) 62.5 Physical Exam Narrative Neurovascular status unchanged. Nonpitting edema appreciated to the right lower extremity. Incision at the level of the leg primary closure is well coapted with suture. Evidence of sanguinous crust. No erythema or proximal streaking or sign of infection. Inferior ulceration is healed to the posterior right calf. No pain with calf compression. Debridement Note Debridement Note Post-Debridement Measurements and Additional Note: Post-Debridement Measurements/Treatment [facility] Nurse 1 - General Ulcer Assessment Start: 07/18/23 10:01 Freq: Status: Active Protocol: .LOWSANTIAGO Activity Type Activity Date Activity User E-sign Co-sign Detail Recorded Client Recorded Date Recorded By Document 07/18/23 10:01 Desktop 07/18/23 10:08 07/18/23 10:01 - Today's Visit Information Type of service Follow-up Visit (Physician/DEVELOPMENTAL TRAINING COUNSELOR ) Arrival Mode Ambulatory Transfer Assistance None Patient Identification Verified (Name & Yes ) Patient Requires Transmission-Based Yes Precautions Safety Precautions NA Finger Stick Blood Sugar(mg/dl) (if 153 indicated): Blood Sugar Stated by Patient Height and Weight Body Mass Index (BMI) 62.5 BMI Classification Obese Vital Signs Temperature (97.8 F-99.1 F) 97 F L Temperature Source Temporal Pulse Rate (60-100) 118 H Pulse Location Monitor Respiratory Rate (12-18) 22 H Respiratory rate source Observation Blood Pressure (90/60-120/80) 150/96 H Blood Pressure Mean (mm Hg) 114 Source Monitor History Since Last Visit- (Skip if this is Patient's initial visit) Have you changed medications since your No last visit? Any new allergies or adverse reactions No Had a fall/change in ADL's that may No increase risk of falls Signs or symptoms of abuse and/or No neglect since last visit Have you been in the hospital since your No last visit? Has dressing in place as prescribed Yes Has compression in place as prescribed Yes Has offloadiing in place as prescribed Yes Experienced any changes in pain level or No management Pain Scale: 0-10 Numeric Is Patient Pain Free? Yes - Nurse 1 - General Ulcer Measurement Start: 07/18/23 10:01 Freq: Status: Active Protocol: Activity Type Activity Date Activity User E-sign Co-sign Detail Recorded Client Recorded Date Recorded By Document 07/18/23 10:01 DL Desktop 07/18/23 10:08 SHONA 07/18/23 10:01 Wound Center Nurse 1 #1 R post LE -Current Size (cm) - Length 0.1 -Current Size (cm) - Width 0.1 -Current Size (cm) - Depth 0.1 -Total Square Cm 0.01 -Exudate Amt None Present -Wound Margin Indistinct, Non -Visible -Granulation Amt Large (67-100%) -Granulation Quality [place] -Necrosis Amt None Present (0 %) -Structure Exposed N/A -Texture (Rachele-wound Skin Appearance) Scarring -Moisture (Rachele-wound Skin Appearance) No Abnormality -Color (Rachele-wound Skin Appearance) No Abnormality -Tenderness on Palpation (Rachele-wound No Skin Appearance) -Ulcer Cleansing Soap and Water -Foul Odor after Cleansing No -Wound Comment(s) Biopsy site- suture intact Right Calf (cm) 58.5 Right Ankle (cm) 32 WC - Nurse 2 - General Ulcer CM Notes Start: 07/18/23 10:01 Freq: Status: Active Protocol: Activity Type Activity Date Activity User E-sign Co-sign Detail Recorded Client Recorded Date Recorded By Document 07/18/23 10:24 RUBA Laptop 07/18/23 10:25 RUBA 07/18/23 10:24 Wound Center Nurse 2 #1 R post LE -Correct Patient No -Correct Side, Site, Position No -Correct Procedure No -Procedure Performed No -Post Debridement (cm) - Length 0.1 -Post Debridement (cm) - Width 0.1 -Post Debridement (cm) - Depth 0.1 -Total Square (Post) (cm) 0.01 -Area of Debridement (cm) - Length 0.1 -Area of Debridement (cm) - Width 0.1 -Total Square (Area) (cm) 0.01 -Wound/Ulcer Outcome Healed- Surgical Closure -Bleeding Controlled with Pressure -Treatment Response Procedure Tolerated Well Pain Scale: 0-10 Numeric Is Patient Pain Free? Yes - Nurse 3 - General Ulcer D/C NN Start: 07/18/23 10:01 Freq: Status: Active Protocol: Activity Type Activity Date Activity User E-sign Co-sign Detail Recorded Client Recorded Date Recorded By Document 07/18/23 10:25 Laptop 07/18/23 10:26 07/18/23 10:25 Wound Care Center Nurse 3 #1 R post LE -Ulcer Cleansing Rinsed/ Irrigated with Saline -Primary Dressing Applied Coban: 2 Layer System -Other Dressing betadine and gauze -Primary Dressing Covered/Secured with Dry Gauze -Coban: 2 Layer System 1 Pain Scale: 0-10 Numeric Is Patient Pain Free? Yes WC - Visit Discharge Discharge Condition Stable Ambulatory Status Ambulatory Transportation Private Auto Medication Reconcilliation completed & Yes provided to patient/care provider Clinical Summary of Care Provided Yes Assessment/Plan Assessment/Plan (1) Ulcer of right lower extremity with fat layer exposed: CODE(S): L97.912 - Non-pressure chronic ulcer of unspecified 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 All findings were discussed with the patient. All questions were answered to the patient satisfaction. The patient's delayed primary closure site is well coapted with suture. Evidence of sanguinous crust throughout the suture and incision. No evidence of surgical wound dehiscence, erythema or proximal streaking or sign of infection. Inferior ulceration is healed. Edema is improving with wraps. The bilateral lower extremity will be dressed with, left Tubigrip, right 2 layer 3M wrap. Patient was instructed to leave the right lower extremity clean dry and intact. Follow-up in 1 week for evaluation. (2) Diabetes mellitus with diabetic polyneuropathy: CODE(S): E11.42 - Type 2 diabetes mellitus with diabetic polyneuropathy QUALIFIERS: Diabetes mellitus type: type 2 Diabetes mellitus remote computer terminal operator insulin use: with remote computer terminal operator use Qualified Code(s): E11.42 - Type 2 diabetes mellitus with diabetic polyneuropathy; Z79.4 - manager intermediate (current) use of insulin PLAN: Continue strict blood sugar control to allow her operative site to heal unremarkably. (3) Lymphedema: CODE(S): I89.0 - Lymphedema, not elsewhere classified PLAN: Continue to compress her bilateral lower extremity to decrease her swelling.
--- NOTE | 2023-07-19 08:16 | WC ---
Ordered compression thru [facility] and Wen Lantigua called patient letting her know that the circaids are not covered by her insurance and they contacted patient who told them she will have to wait a few weeks before she can pay for the circaids.
[2023-07-25 14:55] VITALS: BP 144/72; PULSE 98; TEMP 35.8; BMI 62.5
--- NOTE | 2023-07-25 15:39 | PN.PCM_ITS ---
History of Present Illness Date of Service: 07/25/23 Chief Complaint: Ulceration right posterior leg History of Wound: Ulceration right posterior leg Subjective Subjective Ms. Rodriguez is a 42-year-old diabetic female presenting for follow-up of delayed primary closure to the right posterior calf. She has kept her dressing clean dry and intact. She admits they rolled down a little bit secondary to causing her swelling to decrease. She denies any pain in the posterior aspect of the level of the leg primary closure. Her blood sugars well controlled. She continues to smoke. She denies trauma. Denies constitutional symptoms. The p atient complains of's time. Objective Data Objective Data Vital Signs: Vital Signs Temp Pulse Resp BP O2 Del Method 96.5 F L 98 22 H 144/72 H Room Air 07/25/23 14:55 07/25/23 14:55 07/18/23 10:01 07/25/23 14:55 07/25/23 14:55 Oxygen Delivery Method Room Air Weight: 160.223 kg Body Mass Index (BMI) 62.5 Physical Exam Narrative Neurovascular status unchanged. Nonpitting edema appreciated to the right lower extremity. Incision at the level of the leg primary closure is well coapted with suture. Evidence of sanguinous crust. No erythema or proximal streaking or sign of infection. Inferior ulceration is healed to the posterior right calf. No pain with calf compression. Debridement Note Debridement Note Post-Debridement Measurements and Additional Note: Post-Debridement Measurements/Treatment - Nurse 1 - General Ulcer Assessment Start: 07/18/23 10:01 Freq: Status: Active Protocol: PANCHITO.SAY Activity Type Activity Date Activity User E-sign Co-sign Detail Recorded Client Recorded Date Recorded By Document 07/18/23 10:01 DL Desktop 07/18/23 10:08 DL Document 07/25/23 14:55 Desktop 07/25/23 15:07 07/18/23 07/25/23 10:01 14:55 - Today's Visit Information Type of service Follow-up Visit Follow-up Visit (Physician/BYPRODUCTS SUPERVISOR (Physician/BYPRODUCTS SUPERVISOR ) ) Arrival Mode Ambulatory Ambulatory Transfer Assistance None None Patient Identification Verified (Name & Yes Yes ) Patient Requires Transmission-Based Yes No Precautions Safety Precautions NA NA Finger Stick Blood Sugar(mg/dl) (if 153 135 indicated): Blood Sugar Stated by Stated by Patient Patient Height and Weight Body Mass Index (BMI) 62.5 62.5 BMI Classification Obese Obese Vital Signs Temperature (97.8 F-99.1 F) 97 F L 96.5 F L Temperature Source Temporal Temporal Pulse Rate (60-100) 118 H 98 Pulse Location Monitor Monitor Respiratory Rate (12-18) 22 H Respiratory rate source Observation Oxygen Delivery Method Room Air Blood Pressure (90/60-120/80) 150/96 H 144/72 H Blood Pressure Mean (mm Hg) 114 96 Source Monitor Monitor Position Semi-Fowlers Blood Pressure Location Right Arm History Since Last Visit- (Skip if this is Patient's initial visit) Have you changed medications since your No No last visit? Any new allergies or adverse reactions No No Had a fall/change in ADL's that may No No increase risk of falls Signs or symptoms of abuse and/or No No neglect since last visit Have you been in the hospital since your No No last visit? Has dressing in place as prescribed Yes Yes Has compression in place as prescribed Yes Yes Has offloadiing in place as prescribed Yes No Experienced any changes in pain level or No No management Pain Scale: 0-10 Numeric Is Patient Pain Free? Yes Yes WC - Nurse 1 - General Ulcer Measurement Start: 07/18/23 10:01 Freq: Status: Active Protocol: Activity Type Activity Date Activity User E-sign Co-sign Detail Recorded Client Recorded Date Recorded By Document 07/18/23 10:01 DL Desktop 07/18/23 10:08 DL Document 07/25/23 14:55 Desktop 07/25/23 15:07 07/18/23 07/25/23 10:01 14:55 Wound Center Nurse 1 #1 R post LE -Combined with other wound No -Current Size (cm) - Length 0.1 -Current Size (cm) - Width 0.1 -Current Size (cm) - Depth 0.1 -Total Square Cm 0.01 -Photo Taken No -Exudate Amt None Present Small -Exudate Type Serous -Wound Margin Indistinct, Non Flat & Intact -Visible -Granulation Amt Large (67-100%) Small (1-33%) -Granulation Quality [place] -Necrosis Amt None Present (0 Small (1-33%) %) -Necrotic Tissue Type Adherent Slough -Structure Exposed N/A N/A -Texture (Rachele-wound Skin Appearance) Scarring Assessed -Moisture (Rachele-wound Skin Appearance) No Abnormality Assessed -Color (Rachele-wound Skin Appearance) No Abnormality Assessed -Temperature (Rachele-wound Skin No Abnormality Appearance) (Pt Warm) -Tenderness on Palpation (Rachele-wound No No Skin Appearance) -Ulcer Cleansing Soap and Water Soap and Water -Foul Odor after Cleansing No No -Anesthetic Used 5% Lidocaine Gel -Wound Comment(s) Biopsy site- suture intact Lower Limb Edema Present Yes Right Calf (cm) 58.5 58.0 Right Ankle (cm) 32 31.0 Left Calf (cm) 56.0 Left Ankle (cm) 30.5 - Nurse 2 - General Ulcer CM Notes Start: 07/18/23 10:01 Freq: Status: Active Protocol: Activity Type Activity Date Activity User E-sign Co-sign Detail Recorded Client Recorded Date Recorded By Document 07/18/23 10:24 Laptop 07/18/23 10:25 Document 07/25/23 15:32 Laptop 07/25/23 15:34 07/18/23 07/25/23 10:24 15:32 Wound Center Nurse 2 #1 R post LE -Correct Patient No No -Correct Side, Site, Position No No -Correct Procedure No No -Procedure Performed No No -Post Debridement (cm) - Length 0.1 0 -Post Debridement (cm) - Width 0.1 0 -Post Debridement (cm) - Depth 0.1 0 -Total Square (Post) (cm) 0.01 0 -Area of Debridement (cm) - Length 0.1 0 -Area of Debridement (cm) - Width 0.1 0 -Total Square (Area) (cm) 0.01 0 -Wound/Ulcer Outcome Healed- Healed- Surgical Epithelialized Closure -Bleeding Controlled with Pressure -Treatment Response Procedure Tolerated Well Pain Scale: 0-10 Numeric Is Patient Pain Free? Yes Yes - Nurse 3 - General Ulcer D/C NN Start: 07/18/23 10:01 Freq: Status: Active Protocol: Activity Type Activity Date Activity User E-sign Co-sign Detail Recorded Client Recorded Date Recorded By Document 07/18/23 10:25 Laptop 07/18/23 10:26 Edit Result 07/18/23 10:25 JF (1) [id number] 07/19/23 06:42 PL (1) Right - Lotion applied to leg before => No compression wrap - Multi-Layered Wrap Application => Multi-Layer Comp - => Right ($) 07/18/23 10:25 Wound Care Center Nurse 3 #1 R post LE -Ulcer Cleansing Rinsed/ Irrigated with Saline -Primary Dressing Applied Coban: 2 Layer System -Other Dressing betadine and gauze -Primary Dressing Covered/Secured with Dry Gauze -[place]oban: 2 Layer System 1 Right -Lotion applied to leg before No compression wrap -Multi-Layered Wrap Application Multi-Layer Comp - Right ($ ) Pain Scale: 0-10 Numeric Is Patient Pain Free? Yes WC - Visit Discharge Discharge Condition Stable Ambulatory Status Ambulatory Transportation Private Auto Medication Reconcilliation completed & Yes provided to patient/care provider Clinical Summary of Care Provided Yes Assessment/Plan Assessment/Plan (1) Ulcer of right lower extremity with fat layer exposed: CODE(S): L97.912 - Non-pressure chronic ulcer of unspecified part of right lower leg with fat layer exposed PLAN: Patient was examined evaluated. All fines were discussed with the patient. All questions were answered to the patient satisfaction. Betadine paint was applied to the suture, suture removed on the side. Incision is closed. There is evidence of slight maceration secondary to dressing rubbing when it rolled down. The area was wiped clean and patted dry. Skin graft prep was applied to the suture removal area followed by Steri-Strips and Betadine paint. The patient was instructed to leave the Steri-Strips and Band-Aid that was also done clean dry and intact. She can shower but not soak her right leg. Double layer single Tubigrip's were donned to bilateral lower extremity. The patient will continue to observe the posterior right leg for any signs of infection or concern and follow back in the wound care center in 2 weeks or sooner if needed. She left the office pleased with the visit. (2) Type 2 diabetes mellitus with foot ulcer: CODE(S): E11.621 - Type 2 diabetes mellitus with foot ulcer; L97.509 - Non-pressure chronic ulcer of other part of unspecified foot with unspecified severity QUALIFIERS: Diabetes mellitus penitentiary insulin use: with quarry supervisor use Qualified Code(s): E11.621 - Type 2 diabetes mellitus with foot ulcer; L97.509 - Non-pressure chronic ulcer of other part of unspecified foot with unspecified severity; Z79.4 - FPC (current) use of insulin (3) Diabetes mellitus with diabetic polyneuropathy: CODE(S): E11.42 - Type 2 diabetes mellitus with diabetic polyneuropathy QUALIFIERS: Diabetes mellitus type: type 2 Diabetes mellitus quarry supervisor insulin use: with quarry supervisor use Qualified Code(s): E11.42 - Type 2 diabetes mellitus with diabetic polyneuropathy; Z79.4 - flood control engineer (current) use of insulin (4) Lymphedema: CODE(S): I89.0 - Lymphedema, not elsewhere classified
[2023-08-08 14:57] VITALS: BP 121/94; PULSE 118; RESP 22; TEMP 35.8; BMI 62.5
--- NOTE | 2023-08-08 15:50 | PN.PCM_ITS ---
History of Present Illness Date of Service: 08/08/23 Chief Complaint: Ulceration right posterior leg History of Wound: Ulceration right posterior leg Subjective Subjective Ms. Rodriguez is a 42-year-old diabetic female presenting to the wound care center today for follow-up and evaluation of reopening of full-thickness ulceration to the posterior aspect of the right calf. Patient admits that the ulceration had healed. She does admit to swelling to her right leg that most likely caused her to reopen. She denies smoking. She states her blood sugars under control. She denies trauma. Denies constitutional symptoms. No other pedal complaints at this time. Objective Data Objective Data Vital Signs: Vital Signs Temp Pulse Resp BP O2 Del Method 96.4 F L 118 H 22 H 121/94 H Room Air 08/08/23 14:57 08/08/23 14:57 08/08/23 14:57 08/08/23 14:57 08/08/23 14:57 Oxygen Delivery Method Room Air Weight: 160.223 kg Body Mass Index (BMI) 62.5 Physical Exam Narrative Neurovascular status unchanged. Evidence of full-thickness ulceration of the posterior calf measuring 0.4 x 0.4 x 0.3 cm. Wound base is fibrogranular in nature. Sanguinous drainage noted. No sign of infection. No erythema no SOI. Pain on palpation to full-thickness ulceration. No pain with calf compression. Excisional debridement down to and including subcutaneous tissue to the right posterior calf full-thickness ulceration with a number 3 mm dermal curette without incident. Predebridement measurement is 0.3 x 0.3 x 0.2 cm. Postdebridement measurement is 0.4 x 0.4 x 0.3 cm. Debridement Note Debridement Note Debridement Free Text: Excisional debridement down to and including subcutaneous tissue to the right posterior calf full-thickness ulceration with a number 3 mm dermal curette without incident. Predebridement measurement is 0.3 x 0.3 x 0.2 cm. Postdebridement measurement is 0.4 x 0.4 x 0.3 cm. Post-Debridement Measurements and Additional Note: Post-Debridement Measurements/Treatment PANCHITO - Nurse 1 - General Ulcer Assessment Start: 07/18/23 10:01 Freq: Status: Active Protocol: WATSON Activity Type Activity Date Activity User E-sign Co-sign Detail Recorded Client Recorded Date Recorded By Document 11/01/23 10:01 DL Desktop 07/18/23 10:08 DL Document 07/25/23 14:55 GM Desktop 07/25/23 15:07 GM Document 08/08/23 14:57 MW Desktop 08/08/23 15:06 MW 07/18/23 07/25/23 08/08/23 10:01 14:55 14:57 WC - Today's Visit Information Type of service Follow-up Visit Follow-up Visit Follow-up Visit (Physician/MOTOR GRADER OPERATOR (Physician/MOTOR GRADER OPERATOR (Physician/MOTOR GRADER OPERATOR ) ) ) Arrival Mode Ambulatory Ambulatory Ambulatory Transfer Assistance None None None Accompanied by self Patient Identification Verified (Name & Yes Yes Yes ) Patient Requires Transmission-Based Yes No No Precautions Safety Precautions NA NA NA Finger Stick Blood Sugar(mg/dl) (if 153 135 153 indicated): Blood Sugar Stated by Stated by Patient Patient Height and Weight Body Mass Index (BMI) 62.5 62.5 62.5 BMI Classification Obese Obese Obese Vital Signs Temperature (97.8 F-99.1 F) 97 F L 96.5 F L 96.4 F L Temperature Source Temporal Temporal Temporal Pulse Rate (60-100) 118 H 98 118 H Pulse Location Monitor Monitor Monitor Respiratory Rate (12-18) 22 H 22 H Respiratory rate source Observation Observation Oxygen Delivery Method Room Air Room Air Blood Pressure (90/60-120/80) 150/96 H 144/72 H 121/94 H Blood Pressure Mean (mm Hg) 114 96 103 Source Monitor Monitor Monitor Position Semi-Fowlers Sitting Blood Pressure Location Right Arm Left Forearm History Since Last Visit- (Skip if this is Patient's initial visit) Have you changed medications since your No No No last visit? Any new allergies or adverse reactions No No No Had a fall/change in ADL's that may No No No increase risk of falls Signs or symptoms of abuse and/or No No No neglect since last visit Have you been in the hospital since your No No No last visit? Has dressing in place as prescribed Yes Yes Yes Has compression in place as prescribed Yes Yes Yes Has offloadiing in place as prescribed Yes No N/A Experienced any changes in pain level or No No No management Left Footwear Regular Shoe Right Footwear Regular Shoe Pain Scale: 0-10 Numeric Is Patient Pain Free? Yes Yes Yes WC - Nurse 1 - General Ulcer Measurement Start: 07/18/23 10:01 Freq: Status: Active Protocol: Activity Type Activity Date Activity User E-sign Co-sign Detail Recorded Client Recorded Date Recorded By Document 07/18/23 10:01 DL Desktop 07/18/23 10:08 DL Document 07/25/23 14:55 GM Desktop 07/25/23 15:07 GM Document 08/08/23 14:57 MW Desktop 08/08/23 15:06 MW 07/18/23 07/25/23 08/08/23 10:01 14:55 14:57 Wound Center Nurse 1 #1 R post LE -Combined with other wound No No -Current Size (cm) - Length 0.1 0.3 -Current Size (cm) - Width 0.1 0.3 -Current Size (cm) - Depth 0.1 0.1 -Total Square Cm 0.01 0.09 -Date of Last Picture (Recall this 08/08/23 field) -Photo Taken No Yes -Epithelialization None Present -Tunneling No -Undermining/Tunneling No -Circular Undermining No -Exudate Amt None Present Small None Present -Exudate Type Serous -Wound Margin Indistinct, Non Flat & Intact Flat & Intact -Visible -Granulation Amt Large (67-100%) Small (1-33%) None Present (0 %) -Granulation Quality [place] N/A -Slough/Fibrin Yes -Necrosis Amt None Present (0 Small (1-33%) Medium (34-66%) %) -Necrotic Tissue Type Adherent Slough Adherent Slough -Structure Exposed N/A N/A -Texture (Rachele-wound Skin Appearance) Scarring Assessed Assessed, Localized Edema ,Scarring,Rash -Moisture (Rachele-wound Skin Appearance) No Abnormality Assessed No Abnormality, Assessed -Color (Rachele-wound Skin Appearance) No Abnormality Assessed No Abnormality, Assessed -Temperature (Rachele-wound Skin No Abnormality No Abnormality Appearance) (Pt Warm) (Pt Warm) -Tenderness on Palpation (Rachele-wound No No No Skin Appearance) -Ulcer Cleansing Soap and Water Soap and Water Rinsed/ Irrigated with Saline -Foul Odor after Cleansing No No No -Anesthetic Used 5% Lidocaine 5% Lidocaine Gel Gel -Wound Comment(s) Biopsy site- suture intact Lower Limb Edema Present Yes Yes Right Calf (cm) 58.5 58.0 64.5 Right Ankle (cm) 32 31.0 33.0 Left Calf (cm) 56.0 Left Ankle (cm) 30.5 PANCHITO - Nurse 2 - General Ulcer CM Notes Start: 07/18/23 10:01 Freq: Status: Active Protocol: Activity Type Activity Date Activity User E-sign Co-sign Detail Recorded Client Recorded Date Recorded By Document 07/18/23 10:24 Laptop 07/18/23 10:25 Document 07/25/23 15:32 Laptop 07/25/23 15:34 07/18/23 07/25/23 10:24 15:32 Wound Center Nurse 2 #1 R post LE -Correct Patient No No -Correct Side, Site, Position No No -Correct Procedure No No -Procedure Performed No No -Post Debridement (cm) - Length 0.1 0 -Post Debridement (cm) - Width 0.1 0 -Post Debridement (cm) - Depth 0.1 0 -Total Square (Post) (cm) 0.01 0 -Area of Debridement (cm) - Length 0.1 0 -Area of Debridement (cm) - Width 0.1 0 -Total Square (Area) (cm) 0.01 0 -Wound/Ulcer Outcome Healed- Healed- Surgical Epithelialized Closure -Bleeding Controlled with Pressure -Treatment Response Procedure Tolerated Well Pain Scale: 0-10 Numeric Is Patient Pain Free? Yes Yes - Nurse 3 - General Ulcer D/C NN Start: 07/18/23 10:01 Freq: Status: Active Protocol: Activity Type Activity Date Activity User E-sign Co-sign Detail Recorded Client Recorded Date Recorded By Document 07/18/23 10:25 Laptop 07/18/23 10:26 Edit Result 07/18/23 10:25 JF (1) [id number] 07/19/23 06:42 PL (1) Right - Lotion applied to leg before => No compression wrap - Multi-Layered Wrap Application => Multi-Layer Comp - => Right ($) 07/18/23 10:25 Wound Care Center Nurse 3 #1 R post LE -Ulcer Cleansing Rinsed/ Irrigated with Saline -Primary Dressing Applied Coban: 2 Layer System -Other Dressing betadine and gauze -Primary Dressing Covered/Secured with Dry Gauze -Coban: 2 Layer System 1 Right -Lotion applied to leg before No compression wrap -Multi-Layered Wrap Application Multi-Layer Comp - Right ($ ) Pain Scale: 0-10 Numeric Is Patient Pain Free? Yes WC - Visit Discharge Discharge Condition Stable Ambulatory Status Ambulatory Transportation Private Auto Medication Reconcilliation completed & Yes provided to patient/care provider Clinical Summary of Care Provided Yes Assessment/Plan Assessment/Plan (1) Ulcer of right lower extremity with fat layer exposed: CODE(S): L97.912 - Non-pressure chronic ulcer of unspecified part of right lower leg with fat layer exposed PLAN: Patient was examined evaluated. All findings were discussed with the patient. All questions were answered to the patient satisfaction. Excisional debridement down to and including subcutaneous tissue to the right posterior calf full-thickness ulceration with a number 3 mm dermal curette without incident. Predebridement measurement is 0.3 x 0.3 x 0.2 cm. Postdebridement measurement is 0.4 x 0.4 x 0.3 cm. The ulceration was dressed with Hannah, Betadine paint dry sterile dressing and a 3M wrap was applied to the left lower extremity. She was instructed leave the wrap clean dry and intact and follow-up Sunday for nursing visit. Educated patient on strict glycemic control. Educated the patient on smoking cessation. Follow-up in 1 week. 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
--- NOTE | 2023-08-15 15:03 | PN.PCM_ITS ---
History of Present Illness Date of Service: 08/15/23 Chief Complaint: Ulceration right posterior leg History of Wound: Ulceration right posterior leg Subjective Subjective Ms. Rodriguez is a 42-year-old diabetic female presenting to the wound care center today for follow-up and evaluation of reopening of full-thickness ulceration to the posterior aspect of the right calf. Patient admits that the ulceration had healed. She does admit to swelling to her right leg that most likely caused her to reopen. She denies smoking. She states her blood sugars under control. She denies trauma. Denies constitutional symptoms. No other pedal complaints at this time. Objective Data Objective Data Vital Signs: Vital Signs Temp Pulse Resp BP O2 Del Method 96.4 F L 118 H 22 H 121/94 H Room Air 08/08/23 14:57 08/08/23 14:57 08/08/23 14:57 08/08/23 14:57 08/08/23 14:57 Oxygen Delivery Method Room Air Weight: 160.223 kg Body Mass Index (BMI) 62.5 Physical Exam Narrative Neurovascular status unchanged. Evidence of full-thickness ulceration of the posterior calf measuring 0.4 x 0.4 x 0.3 cm. Wound base is fibrogranular in nature. Sanguinous drainage noted. No sign of infection. No erythema no SOI. Pain on palpation to full-thickness ulceration. No pain with calf compression. Excisional debridement down to and including subcutaneous tissue to the right posterior calf full-thickness ulceration with a number 3 mm dermal curette without incident. Predebridement measurement is 0.3 x 0.3 x 0.2 cm. Postdebridement measurement is 0.4 x 0.4 x 0.3 cm. Debridement Note Debridement Note Debridement Free Text: Excisional debridement down to and including subcutaneous tissue to the right posterior calf full-thickness ulceration with a number 3 mm dermal curette without incident. Predebridement measurement is 0.3 x 0.3 x 0.2 cm. Postdebridement measurement is 0.4 x 0.4 x 0.3 cm. Post-Debridement Measurements and Additional Note: Post-Debridement Measurements/Treatment PANCHITO - Nurse 1 - General Ulcer Assessment Start: 07/18/23 10:01 Freq: Status: Active Protocol: WATSON Activity Type Activity Date Activity User E-sign Co-sign Detail Recorded Client Recorded Date Recorded By Document 11/01/23 10:01 DL Desktop 07/18/23 10:08 DL Document 07/25/23 14:55 GM Desktop 07/25/23 15:07 GM Document 08/08/23 14:57 MW Desktop 08/08/23 15:06 MW 07/18/23 07/25/23 08/08/23 10:01 14:55 14:57 WC - Today's Visit Information Type of service Follow-up Visit Follow-up Visit Follow-up Visit (Physician/AUTOMATIC COIL MACHINE OPERATOR (Physician/AUTOMATIC COIL MACHINE OPERATOR (Physician/AUTOMATIC COIL MACHINE OPERATOR ) ) ) Arrival Mode Ambulatory Ambulatory Ambulatory Transfer Assistance None None None Accompanied by self Patient Identification Verified (Name & Yes Yes Yes ) Patient Requires Transmission-Based Yes No No Precautions Safety Precautions NA NA NA Finger Stick Blood Sugar(mg/dl) (if 153 135 153 indicated): Blood Sugar Stated by Stated by Patient Patient Height and Weight Body Mass Index (BMI) 62.5 62.5 62.5 BMI Classification Obese Obese Obese Vital Signs Temperature (97.8 F-99.1 F) 97 F L 96.5 F L 96.4 F L Temperature Source Temporal Temporal Temporal Pulse Rate (60-100) 118 H 98 118 H Pulse Location Monitor Monitor Monitor Respiratory Rate (12-18) 22 H 22 H Respiratory rate source Observation Observation Oxygen Delivery Method Room Air Room Air Blood Pressure (90/60-120/80) 150/96 H 144/72 H 121/94 H Blood Pressure Mean (mm Hg) 114 96 103 Source Monitor Monitor Monitor Position Semi-Fowlers Sitting Blood Pressure Location Right Arm Left Forearm History Since Last Visit- (Skip if this is Patient's initial visit) Have you changed medications since your No No No last visit? Any new allergies or adverse reactions No No No Had a fall/change in ADL's that may No No No increase risk of falls Signs or symptoms of abuse and/or No No No neglect since last visit Have you been in the hospital since your No No No last visit? Has dressing in place as prescribed Yes Yes Yes Has compression in place as prescribed Yes Yes Yes Has offloadiing in place as prescribed Yes No N/A Experienced any changes in pain level or No No No management Left Footwear Regular Shoe Right Footwear Regular Shoe Pain Scale: 0-10 Numeric Is Patient Pain Free? Yes Yes Yes WC - Nurse 1 - General Ulcer Measurement Start: 07/18/23 10:01 Freq: Status: Active Protocol: Activity Type Activity Date Activity User E-sign Co-sign Detail Recorded Client Recorded Date Recorded By Document 07/18/23 10:01 DL Desktop 07/18/23 10:08 DL Document 07/25/23 14:55 GM Desktop 07/25/23 15:07 GM Document 08/08/23 14:57 MW Desktop 08/08/23 15:06 MW 07/18/23 07/25/23 08/08/23 10:01 14:55 14:57 Wound Center Nurse 1 #1 R post LE -Combined with other wound No No -Current Size (cm) - Length 0.1 0.3 -Current Size (cm) - Width 0.1 0.3 -Current Size (cm) - Depth 0.1 0.1 -Total Square Cm 0.01 0.09 -Date of Last Picture (Recall this 08/08/23 field) -Photo Taken No Yes -Epithelialization None Present -Tunneling No -Undermining/Tunneling No -Circular Undermining No -Exudate Amt None Present Small None Present -Exudate Type Serous -Wound Margin Indistinct, Non Flat & Intact Flat & Intact -Visible -Granulation Amt Large (67-100%) Small (1-33%) None Present (0 %) -Granulation Quality [place] N/A -Slough/Fibrin Yes -Necrosis Amt None Present (0 Small (1-33%) Medium (34-66%) %) -Necrotic Tissue Type Adherent Slough Adherent Slough -Structure Exposed N/A N/A -Texture (Rachele-wound Skin Appearance) Scarring Assessed Assessed, Localized Edema ,Scarring,Rash -Moisture (Rachele-wound Skin Appearance) No Abnormality Assessed No Abnormality, Assessed -Color (Rachele-wound Skin Appearance) No Abnormality Assessed No Abnormality, Assessed -Temperature (Rachele-wound Skin No Abnormality No Abnormality Appearance) (Pt Warm) (Pt Warm) -Tenderness on Palpation (Rachele-wound No No No Skin Appearance) -Ulcer Cleansing Soap and Water Soap and Water Rinsed/ Irrigated with Saline -Foul Odor after Cleansing No No No -Anesthetic Used 5% Lidocaine 5% Lidocaine Gel Gel -Wound Comment(s) Biopsy site- suture intact Lower Limb Edema Present Yes Yes Right Calf (cm) 58.5 58.0 64.5 Right Ankle (cm) 32 31.0 33.0 Left Calf (cm) 56.0 Left Ankle (cm) 30.5 WC - Nurse 2 - General Ulcer CM Notes Start: 07/18/23 10:01 Freq: Status: Active Protocol: Activity Type Activity Date Activity User E-sign Co-sign Detail Recorded Client Recorded Date Recorded By Document 07/18/23 10:24 Laptop 07/18/23 10:25 Document 07/25/23 15:32 Laptop 07/25/23 15:34 Document 08/08/23 16:44 PL [id number] 08/08/23 16:45 PL 07/18/23 07/25/23 08/08/23 10:24 15:32 16:44 Wound Center Nurse 2 #1 R post LE -Time 15:11 -Correct Patient No No Yes -Correct Side, Site, Position No No Yes -Correct Procedure No No Yes -Procedure Performed No No Yes -Type of Procedure Debridement -Clinical Debridement Subcutaneous -Tissue Removed Subcutaneous -Post Debridement (cm) - Length 0.1 0 0.4 -Post Debridement (cm) - Width 0.1 0 0.4 -Post Debridement (cm) - Depth 0.1 0 0.3 -Total Square (Post) (cm) 0.01 0 0.16 -Area of Debridement (cm) - Length 0.1 0 0.4 -Area of Debridement (cm) - Width 0.1 0 0.4 -Total Square (Area) (cm) 0.01 0 0.16 -Tunneling No -Undermining/Tunneling No -Circular Undermining No -Wound/Ulcer Outcome Healed- Healed- Not Healed Surgical Epithelialized Closure -Ulcer Cleansing Rinsed/ Irrigated with Saline -Foul Odor after Cleansing No -Bioengineered Tissue No -Bleeding Controlled with Pressure Pressure -Treatment Response Procedure Procedure Tolerated Well Tolerated Well -Debridement - Subq, 1st 20sq cm Yes Pain Scale: 0-10 Numeric Is Patient Pain Free? Yes Yes Yes PANCHITO - Nurse 3 - General Ulcer D/C NN Start: 07/18/23 10:01 Freq: Status: Active Protocol: Activity Type Activity Date Activity User E-sign Co-sign Detail Recorded Client Recorded Date Recorded By Document 07/18/23 10:25 Laptop 07/18/23 10:26 JF Edit Result 07/18/23 10:25 JF (1) [id number] 07/19/23 06:42 PL Document 08/08/23 16:04 RB Desktop 08/08/23 16:04 RB (1) Right - Lotion applied to leg before => No compression wrap - Multi-Layered Wrap Application => Multi-Layer Comp - => Right ($) 07/18/23 08/08/23 10:25 16:04 Wound Care Center Nurse 3 #1 R post LE -Ulcer Cleansing Rinsed/ Rinsed/ Irrigated with Irrigated with Saline Saline -Primary Dressing Applied Coban: 2 Layer Promogran System Hannah Matter -Other Dressing betadine and gauze -Primary Dressing Covered/Secured with Dry Gauze Dry Gauze -Coban: 2 Layer System 1 -Promogran Hannah Matter 1 Right -Lotion applied to leg before No compression wrap -Multi-Layered Wrap Application Multi-Layer Multi-Layer Comp - Right ($ Comp - Right ($ ) ) Pain Scale: 0-10 Numeric Is Patient Pain Free? Yes Yes WC - Visit Discharge Discharge Condition Stable Stable Ambulatory Status Ambulatory Ambulatory Transportation Private Auto Private Auto Medication Reconcilliation completed & Yes No provided to patient/care provider Clinical Summary of Care Provided Yes Yes Assessment/Plan Assessment/Plan (1) Ulcer of right lower extremity with fat layer exposed: CODE(S): L97.912 - Non-pressure chronic ulcer of unspecified 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 All findings were discussed with the patient. All questions were answered to the patient's satisfaction. Excisional debridement down to and including subcutaneous tissue to the right posterior calf full-thickness ulceration with a number 3 mm dermal curette without incident. Predebridement measurement is 0.3 x 0.3 x 0.2 cm. Postdebridement measurement is 0.4 x 0.4 x 0.3 cm. The ulceration was dressed with Hannah, and Steri-Stripped to try to heal by secondary intention. Patient will be placed in a double layer Tubigrip bilateral. She is free to shower but not soak. She was educated on signs symptoms of infection. She is to call the wound care center if she is concern for infection will send a prescription for Bactrim for 2 weeks. Will begin booking the patient for transfer flap and closure to the posterior aspect of the right calf. Patient was grateful her care and will follow-up in 1 week. 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
[2023-08-15 15:04] VITALS: BP 124/71; PULSE 108; RESP 22; TEMP 36.1; BMI 62.5
== END 2023-08-16 23:59 | disposition home or self-care (01) ==
LOC: WC 15:15
PROVIDERS: PCP Internal Medicine; Referring Provider Internal Medicine; Visit Provider Podiatrist Foot & Ankle Surgery
DX: E11.621 Type 2 diabetes mellitus with foot ulcer (principal); L97.212 Non-pressure chronic ulcer of right calf with fat layer exposed; E11.42 Type 2 diabetes mellitus with diabetic polyneuropathy; Z79.4 Long term (current) use of insulin; R60.0 Localized edema; I89.0 Lymphedema, not elsewhere classified; F17.200 Nicotine dependence, unspecified, uncomplicated; Z79.84 Long term (current) use of oral hypoglycemic drugs; Z79.899 Other long term (current) drug therapy
CPT/HCPCS: 11042; 29581; 99213; G0463

== ENCOUNTER 2023-09-05 15:15 | Outpatient (RCR) | payer MEDICAID, SELFPAY ==
[2023-08-17 00:15] VITALS: BP 124/71; PULSE 108; RESP 22; TEMP 36.1; BMI 62.5
[2023-08-22 15:23] VITALS: BP 134/72; PULSE 107; RESP 22; TEMP 36.2; BMI 62.5
--- NOTE | 2023-08-22 16:50 | PN.PCM_ITS ---
History of Present Illness Date of Service: 08/22/23 Chief Complaint: Ulceration right posterior leg History of Wound: Ulceration right posterior leg Subjective Subjective Ms. Rodriguez is a 42-year-old diabetic female presenting to the wound care center today for follow-up and evaluation of reopening of full-thickness ulceration to the posterior aspect of the right calf. Patient admits that the ulceration had healed. She does admit to swelling to her right leg that most likely caused her to reopen. She denies smoking. She states her blood sugars under control. She denies trauma. Denies constitutional symptoms. No other pedal complaints at this time. Objective Data Objective Data Vital Signs: Vital Signs Temp Pulse Resp BP 97.2 F L 107 H 22 H 134/72 H 08/22/23 15:23 08/22/23 15:23 08/22/23 15:23 08/22/23 15:23 Weight: 160.223 kg Body Mass Index (BMI) 62.5 Physical Exam Narrative Neurovascular status unchanged. Evidence of full-thickness ulceration of the posterior calf measuring 0.4 x 0.4 x 0.3 cm. Wound base is fibrogranular in nature. Sanguinous drainage noted. No sign of infection. No erythema no SOI. Pain on palpation to full-thickness ulceration. No pain with calf compression. Excisional debridement down to and including subcutaneous tissue to the right posterior calf full-thickness ulceration with a number 3 mm dermal curette without incident. Predebridement measurement is 0.3 x 0.3 x 0.2 cm. Postdebridement measurement is 0.4 x 0.4 x 0.3 cm. Debridement Note Debridement Note Debridement Free Text: Excisional debridement down to and including subcutaneous tissue to the right posterior calf full-thickness ulceration with a number 3 mm dermal curette without incident. Predebridement measurement is 0.3 x 0.3 x 0.2 cm. Postdebridement measurement is 0.4 x 0.4 x 0.3 cm Post-Debridement Measurements and Additional Note: Post-Debridement Measurements/Treatment PANCHITO - Nurse 1 - General Ulcer Assessment Start: 08/22/23 15:23 Freq: Status: Active Protocol: WATSON Activity Type Activity Date Activity User E-sign Co-sign Detail Recorded Client Recorded Date Recorded By Document 08/22/23 15:23 DL Desktop 08/22/23 15:27 DL Edit Result 08/22/23 15:23 DL (1) Desktop 08/22/23 15:29 DL (1) Temperature (97.8 F-99.1 F) => 97.2 F L Temperature Source => Temporal Pulse Rate (60-100) => 107 H Pulse Location => Monitor Blood Pressure (90/60-120/80) => 134/72 H Blood Pressure Mean (mm Hg) => 92 Source => Monitor 08/22/23 15:23 WC - Today's Visit Information Type of service Follow-up Visit (Physician/TRUCK SALES REPRESENTATIVE ) Arrival Mode Ambulatory Transfer Assistance None Patient Identification Verified (Name & Yes ) Patient Requires Transmission-Based No Precautions Finger Stick Blood Sugar(mg/dl) (if 163 indicated): Blood Sugar Stated by Patient Height and Weight Body Mass Index (BMI) 62.5 BMI Classification Obese Vital Signs Temperature (97.8 F-99.1 F) 97.2 F L Temperature Source Temporal Pulse Rate (60-100) 107 H Pulse Location Monitor Respiratory Rate (12-18) 22 H Respiratory rate source Observation Blood Pressure (90/60-120/80) 134/72 H Blood Pressure Mean (mm Hg) 92 Source Monitor History Since Last Visit- (Skip if this is Patient's initial visit) Have you changed medications since your No last visit? Any new allergies or adverse reactions No Had a fall/change in ADL's that may No increase risk of falls Signs or symptoms of abuse and/or No neglect since last visit Have you been in the hospital since your No last visit? Has dressing in place as prescribed Yes Has compression in place as prescribed Yes Experienced any changes in pain level or No management Left Footwear Slipper Right Footwear Slipper Pain Scale: 0-10 Numeric Is Patient Pain Free? Yes - Nurse 1 - General Ulcer Measurement Start: 08/22/23 15:23 Freq: Status: Active Protocol: Activity Type Activity Date Activity User E-sign Co-sign Detail Recorded Client Recorded Date Recorded By Document 08/22/23 15:23 DL Desktop 08/22/23 15:27 DL 08/22/23 15:23 Wound Center Nurse 1 #1 R post LE -Current Size (cm) - Length 0.4 -Current Size (cm) - Width 0.4 -Current Size (cm) - Depth 0.4 -Total Square Cm 0.16 -Exudate Amt Small -Exudate Type Serosanguineous -Wound Margin Distinct, Outline Attached -Granulation Amt Large (67-100%) -Granulation Quality Red -Necrosis Amt None Present (0 %) -Texture (Rachele-wound Skin Appearance) Scarring -Moisture (Rachele-wound Skin Appearance) No Abnormality -Color (Rachele-wound Skin Appearance) No Abnormality -Temperature (Rachele-wound Skin No Abnormality Appearance) (Pt Warm) -Tenderness on Palpation (Rachele-wound No Skin Appearance) -Ulcer Cleansing Soap and Water -Foul Odor after Cleansing No -Anesthetic Used 5% Lidocaine Gel Right Calf (cm) 65 Right Ankle (cm) 32.3 WC - Nurse 2 - General Ulcer CM Notes Start: 08/22/23 15:23 Freq: Status: Active Protocol: Activity Type Activity Date Activity User E-sign Co-sign Detail Recorded Client Recorded Date Recorded By Document 08/22/23 16:05 Laptop 08/22/23 16:09 08/22/23 16:05 Wound Center Nurse 2 #1 R post LE -Time 16:06 -Correct Patient Yes -Correct Side, Site, Position Yes -Correct Procedure Yes -Procedure Performed Yes -Type of Procedure Debridement -Clinical Debridement Subcutaneous -Tissue Removed Subcutaneous -Post Debridement (cm) - Length 0.4 -Post Debridement (cm) - Width 0.4 -Post Debridement (cm) - Depth 0.3 -Total Square (Post) (cm) 0.16 -Area of Debridement (cm) - Length 0.4 -Area of Debridement (cm) - Width 0.4 -Total Square (Area) (cm) 0.16 -Tunneling No -Undermining/Tunneling No -Circular Undermining No -Wound/Ulcer Outcome Not Healed -Ulcer Cleansing Rinsed/ Irrigated with Saline -Foul Odor after Cleansing No -Bioengineered Tissue No -Bleeding Controlled with Pressure -Treatment Response Procedure Tolerated Well -Offloading No -Debridement - Subq, 1st 20sq cm Yes Pain Scale: 0-10 Numeric Is Patient Pain Free? Yes WC - Nurse 3 - General Ulcer D/C NN Start: 08/22/23 15:23 Freq: Status: Active Protocol: Activity Type Activity Date Activity User E-sign Co-sign Detail Recorded Client Recorded Date Recorded By Document 08/22/23 16:14 DL Desktop 08/22/23 16:16 DL Edit Result 08/22/23 16:14 DL (1) Desktop 08/22/23 16:17 DL (1) Notes: => Pt to start Santyl when available. 08/22/23 16:14 Wound Care Center Nurse 3 #1 R post LE -Ulcer Cleansing Rinsed/ Irrigated with Saline -Foul Odor after Cleansing No -Primary Dressing Applied C Hydrogel ($) -Primary Dressing Covered/Secured with Dry Gauze, Secured with Tape Right -Tubular Bandage Double Layer -Size of Tubigrip Used Size F -Size F ($) 2 Treatment Response Procedure Tolerated Well Pain Scale: 0-10 Numeric Is Patient Pain Free? Yes WC - Visit Discharge Discharge Condition Stable Ambulatory Status Ambulatory Transportation Private Auto Medication Reconcilliation completed & No provided to patient/care provider Notes: Pt to start Santyl when available. Assessment/Plan Assessment/Plan (1) Ulcer of right lower extremity with fat layer exposed: CODE(S): L97.912 - Non-pressure chronic ulcer of unspecified 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 All findings were discussed with the patient. All questions were answered to the patient's satisfaction. Excisional debridement down to and including subcutaneous tissue to the right posterior calf full-thickness ulceration with a number 3 mm dermal curette without incident. Predebridement measurement is 0.3 x 0.3 x 0.2 cm. Postdebridement measurement is 0.4 x 0.4 x 0.3 cm. Patient's ulceration was dressed with collagen hydrogel, dry sterile dressing and a double layer of Tubigrip. Will begin authorization for Santyl for the patient to apply daily as written. We will still exhaust conservative treatments for taking the patient to the operating room to attempt delayed primary closure to the right calf. The patient will be placed on Bactrim DS secondary to concern for cellulitis for erythema to the periwound. The patient will follow-up in 2 weeks. (2) Diabetes mellitus with diabetic polyneuropathy: CODE(S): E11.42 - Type 2 diabetes mellitus with diabetic polyneuropathy QUALIFIERS: Diabetes mellitus type: type 2 Diabetes mellitus terminal make up operator insulin use: with fdc use Qualified Code(s): E11.42 - Type 2 diabetes mellitus with diabetic polyneuropathy; Z79.4 - skilled nursing (current) use of insulin (3) Morbidly obese: CODE(S): E66.01 - Morbid (severe) obesity due to excess calories (4) Lymphedema: CODE(S): I89.0 - Lymphedema, not elsewhere classified
[2023-09-05 15:13] VITALS: BP 150/78; PULSE 101; RESP 22; TEMP 36.3; BMI 62.5
--- NOTE | 2023-09-05 15:47 | PCM.WC.PN ---
History of Present Illness Date of Service: 09/05/23 Chief Complaint: Ulceration right posterior leg History of Wound: Ulceration right posterior leg Subjective Subjective Ms. Rodriguez is a 42-year-old diabetic female seen at the wound care center today for follow-up and evaluation for full-thickness ulceration to the posterior aspect of the right calf. Patient has been doing home dressing changes with collagen/hydrogel with improvements to the wound. She is taking her antibiotic Bactrim DS as instructed. She is doing home dressing changes as directed. She denies any trauma. Denies constitutional symptoms. No other pedal complaints at this time. Objective Data Objective Data Vital Signs: Vital Signs Temp Pulse Resp BP 97.3 F L 101 H 22 H 150/78 H 09/05/23 15:13 09/05/23 15:13 09/05/23 15:13 09/05/23 15:13 Weight: 160.223 kg Body Mass Index (BMI) 62.5 Physical Exam Narrative Neurovascular status unchanged. Evidence of full-thickness ulceration of the posterior calf measuring 0.4 x 0.7 x 0.2 cm. Wound base is fibrogranular in nature. Sanguinous drainage noted. No sign of infection. No erythema no SOI. Pain on palpation to full-thickness ulceration. No pain with calf compression. Excisional debridement down to and including subcutaneous tissue to the right posterior calf full-thickness ulceration with a number 3 mm dermal curette without incident. Predebridement measurement is 0.3 x 0.5 x 0.2 cm. Postdebridement measurement is 0.4 x 0.7 x 0.2 cm. Debridement Note Debridement Note Debridement Free Text: Excisional debridement down to and including subcutaneous tissue to the right posterior calf full-thickness ulceration with a number 3 mm dermal curette without incident. Predebridement measurement is 0.3 x 0.5 x 0.2 cm. Postdebridement measurement is 0.4 x 0.7 x 0.2 cm. Post-Debridement Measurements and Additional Note: Post-Debridement Measurements/Treatment WC - Nurse 1 - General Ulcer Assessment Start: 08/22/23 15:23 Freq: Status: Active Protocol: [email or web address] Activity Type Activity Date Activity User E-sign Co-sign Detail Recorded Client Recorded Date Recorded By Document 08/22/23 15:23 DL Desktop 12/06/23 15:27 DL Edit Result 08/22/23 15:23 DL (1) Desktop 08/22/23 15:29 DL Document 09/05/23 15:13 DL Desktop 09/05/23 15:20 DL (1) Temperature (97.8 F-99.1 F) => 97.2 F L Temperature Source => Temporal Pulse Rate (60-100) => 107 H Pulse Location => Monitor Blood Pressure (90/60-120/80) => 134/72 H Blood Pressure Mean (mm Hg) => 92 Source => Monitor 08/22/23 09/05/23 15:23 15:13 WC - Today's Visit Information Type of service Follow-up Visit Follow-up Visit (Physician/PHARMACY GENERAL MANAGER (Physician/PHARMACY GENERAL MANAGER ) ) Arrival Mode Ambulatory Ambulatory Transfer Assistance None None Patient Identification Verified (Name & Yes Yes ) Patient Requires Transmission-Based No No Precautions Finger Stick Blood Sugar(mg/dl) (if 163 150 indicated): Blood Sugar Stated by Stated by Patient Patient Height and Weight Body Mass Index (BMI) 62.5 62.5 BMI Classification Obese Obese Vital Signs Temperature (97.8 F-99.1 F) 97.2 F L 97.3 F L Temperature Source Temporal Temporal Pulse Rate (60-100) 107 H 101 H Pulse Location Monitor Monitor Respiratory Rate (12-18) 22 H 22 H Respiratory rate source Observation Blood Pressure (90/60-120/80) 134/72 H 150/78 H Blood Pressure Mean (mm Hg) 92 102 Source Monitor Monitor History Since Last Visit- (Skip if this is Patient's initial visit) Have you changed medications since your No No last visit? Any new allergies or adverse reactions No No Had a fall/change in ADL's that may No No increase risk of falls Signs or symptoms of abuse and/or No No neglect since last visit Have you been in the hospital since your No No last visit? Has dressing in place as prescribed Yes Yes Has compression in place as prescribed Yes Yes Has offloadiing in place as prescribed N/A Experienced any changes in pain level or No No management Left Footwear Slipper Right Footwear Slipper Pain Scale: 0-10 Numeric Is Patient Pain Free? Yes Yes WC - Nurse 1 - General Ulcer Measurement Start: 08/22/23 15:23 Freq: Status: Active Protocol: Activity Type Activity Date Activity User E-sign Co-sign Detail Recorded Client Recorded Date Recorded By Document 08/22/23 15:23 DL Desktop 08/22/23 15:27 DL Document 09/05/23 15:13 DL Desktop 09/05/23 15:20 DL 08/22/23 09/05/23 15:23 15:13 Wound Center Nurse 1 #1 R post LE -Current Size (cm) - Length 0.4 0.4 -Current Size (cm) - Width 0.4 0.5 -Current Size (cm) - Depth 0.4 0.2 -Total Square Cm 0.16 0.20 -Exudate Amt Small None Present -Exudate Type Serosanguineous -Wound Margin Distinct, Distinct, Outline Outline Attached Attached -Granulation Amt Large (67-100%) Small (1-33%) -Granulation Quality Red Garceno -Necrosis Amt None Present (0 None Present (0 %) %) -Structure Exposed N/A -Texture (Rachele-wound Skin Appearance) Scarring Rash -Moisture (Rachele-wound Skin Appearance) No Abnormality No Abnormality -Color (Rachele-wound Skin Appearance) No Abnormality Erythema -Temperature (Rachele-wound Skin No Abnormality No Abnormality Appearance) (Pt Warm) (Pt Warm) -Tenderness on Palpation (Rachele-wound No No Skin Appearance) -Ulcer Cleansing Soap and Water Rinsed/ Irrigated with Saline -Foul Odor after Cleansing No No -Anesthetic Used 5% Lidocaine 5% Lidocaine Gel Gel Right Calf (cm) 65 65 Right Ankle (cm) 32.3 31.5 WC - Nurse 2 - General Ulcer CM Notes Start: 08/22/23 15:23 Freq: Status: Active Protocol: Activity Type Activity Date Activity User E-sign Co-sign Detail Recorded Client Recorded Date Recorded By Document 08/22/23 16:05 Laptop 08/22/23 16:09 Document 09/05/23 15:35 Laptop 09/05/23 15:36 08/22/23 09/05/23 16:05 15:35 Wound Center Nurse 2 #1 R post LE -Time 16:06 15:35 -Correct Patient Yes Yes -Correct Side, Site, Position Yes Yes -Correct Procedure Yes Yes -Procedure Performed Yes Yes -Type of Procedure Debridement Debridement -Clinical Debridement Subcutaneous Subcutaneous -Tissue Removed Subcutaneous Subcutaneous -Post Debridement (cm) - Length 0.4 0.4 -Post Debridement (cm) - Width 0.4 0.7 -Post Debridement (cm) - Depth 0.3 0.2 -Total Square (Post) (cm) 0.16 0.28 -Area of Debridement (cm) - Length 0.4 0.4 -Area of Debridement (cm) - Width 0.4 0.7 -Total Square (Area) (cm) 0.16 0.28 -Tunneling No No -Undermining/Tunneling No No -Circular Undermining No No -Wound/Ulcer Outcome Not Healed Not Healed -Ulcer Cleansing Rinsed/ Rinsed/ Irrigated with Irrigated with Saline Saline -Foul Odor after Cleansing No No -Bioengineered Tissue No No -Bleeding Controlled with Pressure Pressure -Treatment Response Procedure Procedure Tolerated Well Tolerated Well -Offloading No No -Debridement - Subq, 1st 20sq cm Yes Yes Pain Scale: 0-10 Numeric Is Patient Pain Free? Yes Yes WC - Nurse 3 - General Ulcer D/C NN Start: 08/22/23 15:23 Freq: Status: Active Protocol: Activity Type Activity Date Activity User E-sign Co-sign Detail Recorded Client Recorded Date Recorded By Document 08/22/23 16:14 DL Desktop 08/22/23 16:16 DL Edit Result 08/22/23 16:14 DL (1) Desktop 08/22/23 16:17 DL Document 09/05/23 15:46 DL Desktop 09/05/23 15:47 DL (1) Notes: => Pt to start Santyl when available. 08/22/23 09/05/23 16:14 15:46 Wound Care Center Nurse 3 #1 R post LE -Ulcer Cleansing Rinsed/ Rinsed/ Irrigated with Irrigated with Saline Saline -Foul Odor after Cleansing No No -Primary Dressing Applied C Hydrogel ($) C Hydrogel ($) -Primary Dressing Covered/Secured with Dry Gauze, Dry Gauze, Secured with Secured with Tape Tape Right -Tubular Bandage Double Layer Double Layer -Size of Tubigrip Used Size F Size E -Size E ($) 2 -Size F ($) 2 Treatment Response Procedure Tolerated Well Pain Scale: 0-10 Numeric Is Patient Pain Free? Yes Yes WC - Visit Discharge Discharge Condition Stable Stable Ambulatory Status Ambulatory Ambulatory Transportation Private Auto Private Auto Medication Reconcilliation completed & No provided to patient/care provider Notes: Pt to start Santyl when available. Assessment/Plan Assessment/Plan (1) Ulcer of right lower extremity with fat layer exposed: CODE(S): L97.912 - Non-pressure chronic ulcer of unspecified part of right lower leg with fat layer exposed (2) Type 2 diabetes mellitus with foot ulcer: CODE(S): E11.621 - Type 2 diabetes mellitus with foot ulcer; L97.509 - Non-pressure chronic ulcer of other part of unspecified foot with unspecified severity QUALIFIERS: Diabetes mellitus ad terminal makeup operator insulin use: with ad terminal makeup operator use Qualified Code(s): E11.621 - Type 2 diabetes mellitus with foot ulcer; L97.509 - Non-pressure chronic ulcer of other part of unspecified foot with unspecified severity; Z79.4 - senior care (current) use of insulin PLAN: Patient was examined and evaluated. All findings were discussed with the patient. All questions were answered to the patient's satisfaction. Excisional debridement down to and including subcutaneous tissue to the right posterior calf full-thickness ulceration with a number 3 mm dermal curette without incident. Predebridement measurement is 0.3 x 0.5 x 0.2 cm. Postdebridement measurement is 0.4 x 0.7 x 0.2 cm. The ulceration was dressed with Hannah, hydrogel and a dry sterile dressing was applied followed by double layer Tubigrip. Patient was instructed to change her dressings every other day and apply double layer Tubigrip to help decrease her swelling. She is continue to take her antibiotic as written. Follow-up in 2 weeks. (3) Lymphedema: CODE(S): I89.0 - Lymphedema, not elsewhere classified
== END 2023-09-16 23:59 | disposition home or self-care (01) ==
LOC: WC 15:15
PROVIDERS: PCP Internal Medicine; Referring Provider Internal Medicine; Visit Provider Podiatrist Foot & Ankle Surgery
DX: E11.622 Type 2 diabetes mellitus with other skin ulcer (principal); L97.212 Non-pressure chronic ulcer of right calf with fat layer exposed; E11.42 Type 2 diabetes mellitus with diabetic polyneuropathy; E66.01 Morbid (severe) obesity due to excess calories; Z68.44 Body mass index [BMI] 60.0-69.9, adult; Z79.4 Long term (current) use of insulin; I89.0 Lymphedema, not elsewhere classified; Z79.84 Long term (current) use of oral hypoglycemic drugs; Z79.899 Other long term (current) drug therapy
CPT/HCPCS: 11042

== ENCOUNTER 2023-09-28 05:56 | Day surgery (SDC) | payer MEDICAID, SELFPAY ==
--- OUTSIDE RECORDS SUMMARY | 2023-09-28 06:00 | XMS RPT_ITS | CCD ---
Author Name Unknown Address [address] [place] [address] Organization [facility] Care Team Providers Care Kitchen Worker Name Role Phone PROVIDER, UNKNOWN Unavailable Unavailable Talampas, Rodri Unavailable Unavailable Allie Pena Unavailable Unavailable Rodri Villarreal MD Primary Care Provider Rodri Villarreal MD Primary Care Provider Rodri Villarreal MD Primary Care Provider ZUNILDA LIRIANO Attending Unavailable TALAMPAS, RODRI D Primary Care Unavailable RM, JOHNSON Attending Unavailable TALAMPAS, RODRI D Primary Care Unavailable TALAMPAS, RODRI D Primary Care Unavailable RM, JOHNSON Referring Unavailable TALAMPAS, RODRI D Primary Care Unavailable ELLA, ZUNILDA Attending Unavailable ELLA, ZUNILDA Attending Unavailable TALAMPAS, RODRI D Primary Care Unavailable ELLA, ZUNILDA Attending Unavailable TALAMPAS, RODRI D Primary Care Unavailable ELLA, ZUNILDA Referring Unavailable TALAMPAS, RODRI D Primary Care Unavailable ELLA, ZUNILDA Referring Unavailable TALAMPAS, RODRI D Primary Care Unavailable ELLA, ZUNILDA Referring Unavailable TALAMPAS, RODRI D Primary Care Unavailable ELLA, ZUNILDA Attending Unavailable TALAMPAS, RODRI D Primary Care Unavailable ELLA, ZUNILDA Referring Unavailable TALAMPAS, RODRI D Primary Care Unavailable ELLA, ZUNILDA Referring Unavailable TALAMPAS, RODRI D Primary Care Unavailable TALAMPAS, RODIR D Primary Care Unavailable TALAMPAS, RODRI D Attending Unavailable TALAMPAS, RODRI D Primary Care Unavailable ELLA, ZUNILDA Attending Unavailable TALAMPAS, RODRI D Primary Care Unavailable TALAMPAS, RODRI D Primary Care Unavailable MICA RODRIGUEZ Referring Unavailable Allergies Allergy Classification Reported Allergen(s) Allergy Type Date of Onset Reaction(s) Facility (20 sources) buPROPion; Translations: [BUPROPION] Drug Allergy 9 Intolerance [facility] Work Phone: (20 sources) Melatonin; Translations: [MELATONIN] Drug Allergy 7 Rash, [facility] (9 sources) Penicillins; Translations: [PENICILLINS] Drug Allergy 1 Itching, [facility] Work Phone: (19 sources) traMADol Drug Allergy 3 [facility] (20 sources) environmental [Other] Propensity to adverse reactions 6 [facility] Work Phone: (20 sources) Penicillins Drug Allergy 1 Itching, [facility] Work Phone: (1 source) OTHER; Translations: [OTHER] Propensity to adverse reactions (disorder) 6 [facility] Medications Current Medications Medication Drug Class(es) Dates Sig (Normalized) Sig (Original) acetaminophen 300 mg / codeine phosphate 30 mg oral tablet (20 sources) Opioid Agonist Start: 08-07-2023 End: 08-14-2023 take 1 tablet by mouth every eight hours as needed for pain acetaminophen-cod eine (TYLENOL-CODEINE #3) 300-30 mg per tablet Indications: Chronic radicular low back pain , Hip pain, left Take 1 tablet by mouth every 8 hours as needed for pain for up to 7 days. Uses as needed for severe pain. 21 tablet 0 08/07/2023 08/14/2023 Active Completed/Discontinued Medications Medication Drug Class(es) Dates Sig (Normalized) Sig (Original) albuterol 0.417 mg/ml inhalation solution (20 sources) beta2-Adrenergic Agonist Start: 06-19-2023 Albuterol Sulfate 1.25 mg/3 mL nebulizer solution Indications: Moderate persistent asthma without complication Use 1 Ampule via nebulizer every 4 hours as needed for wheezing/shortness of breath. 75 mL 5 06/19/2023 Active Problems Active Problems Problem Classification Problem Date Documented Da te Episodic/Chronic Abdominal pain (2 sources) Generalized abdominal pain; Translations: [Generalized abdominal pain] Episodic Allergic reactions (5 sources) Allergy status to other antibiotic agents status; Translations: [Allergy status to analgesic agent status] Onset: 04-06-2017 07-23-2023 Episodic Asthma (20 sources) Unspecified asthma, uncomplicated; Translations: [Uncomplicated moderate persistent asthma] Onset: 07-16-2015 Chronic Coagulation and hemorrhagic disorders (1 source) Platelet count below reference range; Translations: [Thrombocytopenia, unspecified] Chronic Deficiency and other anemia (2 sources) Iron deficiency anemia secondary to inadequate dietary iron intake; Translations: [Other iron deficiency anemias] Episodic Deficiency and other anemia (1 source) Iron deficiency anemia; Translations: [Iron deficiency anemia, unspecified] 04-27-2023 Episodic Deficiency and other anemia (1 source) Iron deficiency anemia, unspecified; Translations: [Iron deficiency anemia, unspecified iron deficiency anemia type] Onset: 09-21-2023 Episodic Diabetes mellitus with complications (2 sources) Type II diabetes mellitus uncontrolled; Translations: [Type 2 diabetes mellitus with hyperglycemia] Chronic Diabetes mellitus without complication (20 sources) Type 2 diabetes mellitus without complications; Translations: [Type 2 diabetes mellitus without complication] Onset: 12-30-2015 12-30-2015 Chronic Disorders of lipid metabolism (20 sources) Hyperlipidemia; Translations: [Hyperlipidemia, unspecified] Onset: 03-16-2020 03-16-2020 Chronic Disorders of teeth and jaw (1 source) Infection of tooth; Translations: [Periapical abscess without sinus] 07-23-2023 Episodic Headache; including migraine (20 sources) Migraine without aura; Translations: [Migraine without aura, not intractable, without status migrainosus] Onset: 03-29-2006 03-29-2017 Chronic Mood disorders (20 sources) Moderate depressed bipolar I disorder; Translations: [Bipolar disorder, current episode depressed, moderate] Onset: 12-26-2011 10-25-2016 Chronic Mood disorders (2 sources) Major depressive disorder, single episode, unspecified; Translations: [Major depressive disorder, single episode, unspecified] Onset: 04-06-2017 Nutritional deficiencies (3 sources) Vitamin D deficiency; Translations: [Vitamin D deficiency, unspecified] Onset: 03-06-2023 Chronic Osteoarthritis (2 sources) Unspecified osteoarthritis, unspecified site; Translations: [Unspecified osteoarthritis, unspecified site] Onset: 04-06-2017 Chronic Other aftercare (6 sources) Patient encounter status; Translations: [Other terminal supervisor (current) drug therapy] Episodic Other connective tissue disease (5 sources) Trochanteric bursitis; Translations: [Trochanteric bursitis, right hip] Episodic Other connective tissue disease (2 sources) Pain in both feet; Translations: [Pain in right foot] Episodic Other connective tissue disease (1 source) Panniculitis; Translations: [Panniculitis, unspecified] Episodic Other hematologic conditions (2 sources) Microcytosis; Translations: [Other abnormality of red blood cells] Episodic Other hereditary and degenerative nervous system conditions (20 sources) Restless legs; Translations: [Restless legs syndrome] Onset: 03-16-2020 03-16-2020 Chronic Other hereditary and degenerative nervous system conditions (1 source) Restless legs syndrome; Translations: [Restless leg syndrome] Onset: 03-16-2020 Chronic Other lower respiratory disease (1 source) Chronic cough; Translations: [Chronic cough] 07-31-2023 Episodic Other nervous system disorders (2 sources) Other chronic pain; Translations: [Other chronic pain] Onset: 04-06-2017 Chronic Other non-traumatic joint disorders (11 sources) Hip pain; Translations: [Pain in left hip] Episodic Other non-traumatic joint disorders (2 sources) Pain in right knee; Translations: [Pain in joint, lower leg] Episodic Other non-traumatic joint disorders (1 source) Pain of right wrist; Translations: [Pain in right wrist] 07-23-2023 Episodic Other non-traumatic joint disorders (1 source) Pain in right wrist; Translations: [Right wrist pain] Onset: 07-23-2023 Episodic Other nutritional; endocrine; and metabolic disorders (20 sources) Morbid obesity; Translations: [Morbid (severe) obesity due to excess calories] Onset: 09-27-2016 09-27-2016 Chronic Other nutritional; endocrine; and metabolic disorders (2 sources) Severe obesity; Translations: [Morbid (severe) obesity due to excess calories] 05-01-2023 Chronic Other nutritional; endocrine; and metabolic disorders (1 source) Morbid (severe) obesity due to excess calories; Translations: [Morbid obesity (HCC)] Onset: 09-27-2016 Chronic Other skin disorders (1 source) Eruption; Translations: [Rash and other nonspecific skin eruption] Episodic Other upper respiratory disease (20 sources) Allergic rhinitis; Translations: [Allergic rhinitis, unspecified] 03-13-2017 Chronic Residual codes; unclassified (2 sources) Obstructive sleep apnea syndrome; Translations: [Obstructive sleep apnea (adult) (pediatric)] Chronic Residual codes; unclassified (6 sources) Bilateral lower limb edema; Translations: [Localized edema] Episodic Spondylosis; intervertebral disc disorders; other back problems (20 sources) Lumbar spondylosis; Translations: [Spondylosis without myelopathy or radiculopathy, lumbar region] Onset: 02-17-2013 02-17-2013 Chronic Spondylosis; intervertebral disc disorders; other back problems (20 sources) Dorsalgia, unspecified; Translations: [Low back pain] Onset: 07-17-2012 07-17-2012 Episodic Substance-related disorders (2 sources) Nicotine dependence, cigarettes, uncomplicated; Translations: [Nicotine dependence, cigarettes, uncomplicated] Onset: 04-06-2017 Chronic Unclassified (2 sources) retirement (current) use of oral hypoglycemic drugs; Translations: [intermodal customer service (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) use of oral hypoglycemic drugs] Onset: 04-06-2017 Past or Other Problems Problem Classification Problem Date Documented Date Episodic/Chronic Abdominal hernia (20 sources) Umbilical hernia; Translations: [Umbilical hernia without obstruction or gangrene] Onset: 09-22-2016 09-22-2016 Episodic Calculus of urinary tract (2 sources) Personal history of urinary calculi; Translations: [Personal history of urinary calculi] Onset: 04-06-2017 Episodic Cancer of cervix (20 sources) Low grade squamous intraepithelial lesion on cervical Papanicolaou smear; Translations: [Low grade squamous intraepithelial lesion on cytologic smear of cervix (LGSIL)] Onset: 12-26-2011 12-26-2011 Episodic Deficiency and other anemia (1 source) Other iron deficiency anemias; Translations: [Iron deficiency anemia secondary to inadequate dietary iron intake] Onset: 03-06-2023 Episodic Genitourinary symptoms and ill-defined conditions (1 source) Hematuria, unspecified; Translations: [Urinary tract infection with hematuria, site unspecified] Onset: 03-06-2023 Episodic Immunizations and screening for infectious disease (1 source) Encounter for immunization; Translations: [Encounter for immunization] Onset: 03-06-2023 Episodic Nonspecific chest pain (20 sources) Atypical chest pain; Translations: [Other chest pain] Onset: 02-28-2018 02-28-2018 Episodic Nutritional deficiencies (4 sources) Iron deficiency; Translations: [Iron deficiency] Onset: 03-06-2023 Episodic Other aftercare (1 source) Other residential (current) drug therapy; Translations: [Encounter for long-term current use of medication] Onset: 04-27-2023 Episodic Other connective tissue disease (1 source) Panniculitis, unspecified; Translations: [Panniculitis] Onset: 03-06-2023 Episodic Other screening for suspected conditions (not mental disorders or infectious disease) (2 sources) Other specified abnormal findings of blood chemistry; Translations: [Other abnormal blood chemistry] Onset: 03-06-2023 Episodic Other skin disorders (1 source) Rash and other nonspecific skin eruption; Translations: [Rash and nonspecific skin eruption] Onset: 03-06-2023 Episodic Residual codes; unclassified (1 source) Localized edema; Translations: [Bilateral leg edema] Onset: 03-06-2023 Episodic Skin and subcutaneous tissue infections (8 sources) Cellulitis of right lower limb; Translations: [Cellulitis of right lower limb] Onset: 02-22-2023 Episodic Sprains and strains (2 sources) Strain of muscle, fascia and tendon of lower back, initial encounter; Translations: [Strain of muscle, fascia and tendon of lower back, init] Onset: 04-06-2017 Episodic Urinary tract infections (2 sources) Urinary tract infectious disease; Translations: [Urinary tract infection, site not specified] Onset: 03-06-2023 Episodic Results Test Name Value Interpretation Reference Range Facil ity Vital Signs Date Time Vital Sign Value Performing Clinician Chester moon 07-23-2023 15:39-0500 Body temperature 97.3 [degF] [facility] Work Phone: [facility] 07-23-2023 15:39-0500 Body weight 163.29 kg [facility] Work Phone: [facility] 07-23-2023 15:39-0500 Diastolic blood pressure 80 mm[Hg] [facility] Work Phone: [facility] 07-23-2023 15:39-0500 Heart rate 106 /min [facility] Work Phone: [facility] 07-23-2023 15:39-0500 Respiratory rate 16 /min [facility] Work Phone: [facility] 07-23-2023 15:39-0500 SaO2% (BldA) [Mass fraction] 98 % [facility] Work Phone: [facility] 07-23-2023 15:39-0500 Systolic blood pressure 120 mm[Hg] [facility] Work Phone: [facility] 07-13-2023 14:58-0400 Body weight 159.21 kg Zunilda Ella SECURITY CHIEF [employer]UM.WATCHGUARD Work Phone: [facility] 07-13-2023 14:58-0400 Diastolic blood pressure 78 mm[Hg] Zunilda Ella SECURITY CHIEF [employer].WATCHGUARD Work Phone: [facility] 07-13-2023 14:58-0400 Heart rate 99 /min Zunilda Ella SECURITY CHIEF [employer].WATCHGUARD Work Phone: [facility] 07-13-2023 14:58-0400 SaO2% (BldA) [Mass fraction] 98 % Zunilda Ella SECURITY CHIEF [employer].WATCHGUARD Work Phone: [facility] 07-13-2023 14:58-0400 Systolic blood pressure 110 mm[Hg] Zunilda Ella SECURITY CHIEF [employer].WATCHGUARD Work Phone: [facility] 05-04-2023 14:43-0400 Body weight 160.12 kg Zunilda Ella SECURITY CHIEF [employer].WATCHGUARD Work Phone: [facility] 05-04-2023 14:43-0400 Diastolic blood pressure 70 mm[Hg] Zunilda Ella SECURITY CHIEF [employer].WATCHGUARD Work Phone: [facility] 05-04-2023 14:43-0400 Heart rate 110 /min Zunilda Ella SECURITY CHIEF [employer].WATCHGUARD Work Phone: [facility] 05-04-2023 14:43-0400 SaO2% (BldA) [Mass fraction] 98 % Zunilda Ella SECURITY CHIEF [employer].WATCHGUARD Work Phone: [facility] 05-04-2023 14:43-0400 Systolic blood pressure 136 mm[Hg] Zunilda Ella SECURITY CHIEF [employer].WATCHGUARD Work Phone: [facility] 04-27-2023 17:32-0400 Body temperature 98.1 [degF] Rodri Villarreal MD Work Phone: [facility] 04-27-2023 17:32-0400 Body weight 166.02 kg Rodri Villarreal MD Work Phone: [facility] 04-27-2023 17:32-0400 Diastolic blood pressure 74 mm[Hg] Rodri Villarreal MD Work Phone: [facility] 04-27-2023 17:32-0400 Heart rate 110 /min Rodri Villarreal MD Work Phone: [facility] 04-27-2023 17:32-0400 Respiratory rate 18 /min Rodri Villarreal MD Work Phone: [facility] 04-27-2023 17:32-0400 SaO2% (BldA) [Mass fraction] 98 % Rodri Villarreal MD Work Phone: [facility] 04-27-2023 17:32-0400 Systolic blood pressure 119 mm[Hg] Rodri Villarreal MD Work Phone: [facility] 03-06-2023 14:04-0400 Body weight 168.74 kg Johnson Rm SECURITY CHIEF [employer].BAND ATTACHER Work Phone: [facility] 03-06-2023 14:04-0400 Diastolic blood pressure 78 mm[Hg] Johnson Rm SECURITY CHIEF [employer]BAND ATTACHER Work Phone: [facility] 03-06-2023 14:04-0400 Heart rate 104 /min Johnson Rm SECURITY CHIEF [employer]BAND ATTACHER Work Phone: [facility] 03-06-2023 14:04-0400 Respiratory rate 20 /min Johnson Rm SECURITY CHIEF [employer]BAND ATTACHER Work Phone: [facility] 03-06-2023 14:04-0400 Systolic blood pressure 124 mm[Hg] Johnson Rm SECURITY CHIEF [employer]BAND ATTACHER Work Phone: [facility] 02-19-2023 15:33-0400 Body weight 171.91 kg Zunilda Liriano APRN.WATCHGUARD Work Phone: [facility] 02-19-2023 15:33-0400 Diastolic blood pressure 68 mm[Hg] Zunilda Liriano APRN.WATCHGUARD Work Phone: [facility] 02-19-2023 15:33-0400 Heart rate 111 /min Zunilda Liriano SECURITY CHIEF [employer].WATCHGUARD Work Phone: [facility] 02-19-2023 15:33-0400 SaO2% (BldA) [Mass fraction] 98 % Zunilda Liriano SECURITY CHIEF [employer].WATCHGUARD Work Phone: [facility] 02-19-2023 15:33-0400 Systolic blood pressure 120 mm[Hg] Zunilda Liriano APRN.WATCHGUARD Work Phone: [facility] Encounters Encounter Date Encounter Type Care Provider Facility Start: 09-21-2023 End: 09-22-2023 ambulatory ZUNILDA LIRIANO Facility:[facility] Start: 09-18-2023 Encounter for other preprocedural examination ZUNILDA LIRIANO [facility] Start: 09-18-2023 End: 09-18-2023 ambulatory ZUNILDA LIRIANO Facility:[facility] Start: 08-21-2023 Refill Zunilda Liriano APRN.WATCHGUARD Work Phone: [facility] [place] Procedures Date Procedure Procedure Detail Performing Clinician Start: 02-22-2023 Dup-scan xtr veins unilateral/limited study Zunilda Liriano APRN.WATCHGUARD Work Phone: Start: 08-15-2021 Adult depression screening assessment Rodri Villarreal MD Work Phone: Plan of Treatment Date Care Activity Detail Author Start: 07-16-2027 Urine microalbumin profile [facility] Start: 01-20-2026 HPV TESTING HPV TESTING [facility] Start: 01-20-2026 PAP TESTING PAP TESTING [facility] Start: 07-31-2024 Annual PCP Team Actuarial Analyst moises Disease Visit Annual PCP Team Chronic Disease Visit [facility] Start: 07-13-2024 Annual PCP Team Actuarial Analyst moises Disease Visit Annual PCP Team Chronic Disease Visit [facility] Start: 06-01-2024 Annual PCP Team Actuarial Analyst moises Disease Visit Annual PCP Team Chronic Disease Visit [facility] Start: 05-04-2024 ANNUAL PCP TEAM STATION USHER MOISES DISEASE VISIT ANNUAL PCP TEAM CHRONIC DISEASE VISIT [facility] Start: 04-27-2024 ANNUAL PCP TEAM STATION USHER MOISES DISEASE VISIT ANNUAL PCP TEAM CHRONIC DISEASE VISIT [facility] Start: 03-06-2024 Hepatitis B screening URINE AL BUMIN:CREATININE RATIO [facility] Start: 03-06-2024 Hepatitis B surface antibody level LDL CHOLESTEROL [facility] Start: 02-20-2024 ANNUAL PCP TEAM STATION USHER MOISES DISEASE VISIT ANNUAL PCP TEAM CHRONIC DISEASE VISIT [facility] Start: 09-16-2023 DEPRESSION ASSESSMENT DEPRESSION ASS ESSMENT [facility] Immunizations Immunization Date Immunization Notes Care Provider Fa cility 08-15-2021 influenza, injectabl e, quadrivalent, contains preservative Rodri Villarreal MD Work Phone: [facility] Work Phone: 08-15-2021 influenza virus vaccine, unspecified formulation Rodri Villarreal MD Work Phone: [facility] 07-10-2019 influenza, injectabl e, quadrivalent, contains preservative Rodri Villarreal MD Work Phone: [facility] Work Phone: 11-11-2018 influenza, injectabl e, quadrivalent, preservative free Rodri Villarreal MD Work Phone: [facility] 09-04-2017 influenza, injectabl e, quadrivalent, contains preservative Rordi Villarreal MD Work Phone: [facility] 07-16-2017 tetanus toxoid, redu delmi diphtheria toxoid, and acellular pertussis vaccine, adsorbed Rodri Villarreal MD Work Phone: [facility] Work Phone: 01-28-2016 pneumococcal polysaccharide vaccine, 23 valent Rodri Villarreal MD Work Phone: [facility] 09-02-2014 influenza, seasonal, injectable Rodri Villarreal MD Work Phone: [facility] 08-18-2011 tetanus toxoid, redu delmi diphtheria toxoid, and acellular pertussis vaccine, adsorbed Rodri Villarreal MD Work Phone: [facility] 07-17-2007 influenza virus vaccine, unspecified formulation Rodri Villarreal MD Work Phone: [facility] Work Phone: NEGATED: Highlighted row has not occurred!09-01-2022 influenza, injectable, quadrivalent, contains preservative Johnson Rm SECURITY CHIEF [employer].BAND ATTACHER Work Phone: [facility] Work Phone: Payers Date Payer Category Payer Medicaid [id number] 2018 Medicaid [facility] [id number] 2018-Present [phone] [address] [place] [address] Medicaid [id number] 2018 Medicaid [id number] Unknown Social History Date Type Detail Facility Start: 02-20-2019 End: 09-01-2022 Tobacco smoking status NHIS Ex-smoker [facility] Start: 08-17-1998 History of tobacco use Cigarette Smo ker [facility] Start: 02-20-2019 End: 07-31-2023 Cigarettes smoked current (pack per day) - Reported 1 [facility] Work Phone: Start: 02-20-2019 End: 02-19-2023 Tobacco use and exposure Smokeless tobacco non-user [facility] Start: 08-15-2021 End: 02-19-2023 Alcohol intake Current drinker of alcohol (finding) [facility] Start: 12-02-2013 History SDOH Alcohol Comment Seldom [facility] Start: 1980 Sex Assigned At Not on file C [facility] Start: 03-17-2022 End: 03-27-2022 Exposure to SARS-CoV-2 (event) Not sure [facility] Start: 08-17-1998 History of tobacco use Current smoke r [facility] Start: 05-24-2022 End: 06-03-2022 Exposure to SARS-CoV-2 (event) Unable to assess [facility] Start: 08-17-1998 Tobacco smoking stat us NHIS Smokes tobacco daily [facility] Work Phone: Start: 03-06-2023 End: 07-31-2023 Tobacco use panel [facility] Work Phone: Adult Depression Screening Assessment 6 [facility] Work Phone: Start: 04-27-2023 End: 07-23-2023 Alcohol intake Lifetime non-drinker (finding) [facility] Medical Equipment Procedure Code Equipment Code Equipment Origin al Text Equipment Identifier Dates Start: 01-03-2021 End: 06-29-2023 Clinical Notes 12-11-2016 to 09-21-2023 Telephone Encounter - Sylwia Marcial LPN - 08/21/2023 4:42 PM ESTTelephone Encounter - Davy Nunez - 08/21/2023 2:25 PM ESTTelephone Encounter - Kailee Salinas LPN - 08/21/2023 9:03 AM EST Note Date & Type Note Facility 09-21-2023 Note HNO ID: [id number] Author: MYLENE DOBSON LPN Service: ? Author Type: LICENSED NURSE Type: Progress Notes Filed: 09/21/2023 12:13 Note Text: Patient presents for EKG per Zunilda Liriano CNP. Tolerated procedure well. Mylene Dobson LPN [facility] 09-21-2023 Note HNO ID: [id number] Author: ABNER MARINELLI RT(R) Service: Radiology Author Type: Technologist Type: Progress Notes Filed: 09/21/2023 11:38 Note Text: Radiology Service Progress Note PATIENT NAME: Nanci Bob DATE OF SERVICE: September 21, 2023 TIME: 11:27 AM PATIENT IDENTITY VERIFICATION COMPLETED USING TWO (2) IDENTIFIERS: Name and Date of confirmed by patient verbally. FALL SCREENING: Has the patient had 2 falls in the last year or 1 fall with injury or currently using an Ambulatory Assistive Device (Walker, Cane, Wheelchair, Crutches, etc.)? No PATIENT GENDER DATA: Female. status: : No status: NO. PATIENT RELEVANT IMPLANT DATA REVIEWED: Yes RADIOLOGY DEPARTMENT: General X-ray: Exam(s) Completed: Chest X-Ray PERIPHERAL IV DATA: Not applicable SIGNED BY: JENNIFER Frank) September 21, 2023 11:27 AM [facility] 09-18-2023 Note HNO ID: [id number] Author: Abner Marinelli RT(Boo) Service: Radiology Author Type: Technologist Type: Progress Notes Filed: 09/18/2023 3:38 PM Note Text: RADIOLOGY SERVICE PROGRESS NOTE DATE OF SERVICE: September 18, 2023 TIME OF SERVICE: 15:38 pm EVENT: EXAM/PROCEDURE NOT COMPLETED - Patient left without being seen. ADDITIONAL EVENT DETAILS: N/A SIGNATURE: JENNIFER Frank) PATIENT NAME: Nanci Bob DATE: September 18, 2023 TIME: 3:38 PM PAGER/CONTACT #: [facility] 09-18-2023 Note HNO ID: [id number] Author: ZUNILDA LIRIANO APRN.WATCHGUARD Service: ? Author Type: Nurse Practitioner Type: Progress Notes Filed: 09/25/2023 16:16 Note Text: SUBJECTIVE Nanci Bob is a 43 year old female here today for a check up on her medical problems. Chief Complaint Patient presents with: Pre-Op Exam: [facility]. [facility] for [facility] leg wound Pain: right rib area question if fracture ribs from coughing HPI Nanci Bob is a 43 year old female. Her today due to needing a pre-op visit. Currently she has plans for a procedure for a wound on her right leg. Goes in on to the wound center to decide on a surgery date. Dr. Lord planning to do surgery on the right leg wound. History of having anesthesia: Yes, has had prior surgeries such as upper and lower scopes, hernia repair. Any reaction from anesthesia in the past: No. Personal or family history of heart disease: No. Plans for care after surgery: discharge same day. Currently taking a blood thinner: only NSAIDs and advised to stop these at least 1 week prior to the procedure. Patient denies chest pain, SOB, dizziness, palpitations, one sided weakness, dropping of face or mouth, fever, or recent sickness. No history of CVA or AR. Labs, chest xray, EKG to be obtained. History significant for sleep apnea, uses CPAP, HLD, asthma, DM, moderate depressed bipolar, obesity. Overall stable, due for a hgba1c check. She does note issues with right rib pain. Thinks she injured a rib from coughing. No fall or specific injury. No issues with crepitus. Issues with dental pain continues as she has very poor dentition but is having trouble getting seen with a dentist. Also has back pain. Currently using tylenol #3 to help her pain. Her medications were reviewed today and her list is now up to date. Medications Current Outpatient Medications Medication Sig acetaminophen-codeine (TYLENOL-COD #3) 300-30 mg per tablet Take 1 tablet by mouth every 6 hours as needed for pain for up to 7 days. topiramate (TOPAMAX) 100 mg tablet Take 1 tablet by mouth two times a day. lansoprazole (PREVACID) 30 mg capsule Take 1 capsule by mouth daily before breakfast. promethazine (PHENERGAN) 12.5 mg tablet Take 1 tablet by mouth four times a day as needed for nausea/vomiting. mometasone-formoterol (DULERA) 50-5 mcg/actuation HFA aerosol inhaler Inhale 2 Puffs as instructed two times a day. Rinse mouth out after use. pramipexole (MIRAPEX) 1.5 mg tablet Take 1 tablet by mouth daily at bedtime. Chlorhexidine Gluconate (PERIDEX) 0.12 % solution Use 15 mL as instructed two times a day. Rinse around mouth for 30 seconds then expectorate silver sulfADIAZINE (SILVADENE) 1 % cream Apply 1 application to affected area once daily. furosemide (LASIX) 20 mg tablet Take 1-2 tablets by mouth once daily. Albuterol Sulfate 1.25 mg/3 mL nebulizer solution Use 1 Ampule via nebulizer every 4 hours as needed for wheezing/shortness of breath. bacitracin 500 unit/gram ointment APPLY TO THE AFFECTED AREA(S) EVERY DAY ARIPiprazole (ABILIFY) 5 mg tablet Take 1 tablet by mouth once daily. ferrous sulfate 325 mg (65 mg iron) tablet Take 1 tablet by mouth every Sunday,Sunday,Sunday. metFORMIN (GLUCOPHAGE) 500 mg tablet Take 2 tablets by mouth twice daily with meals. Take one additional 500 mg tab with breakfast or lunch until BS less than 250 montelukast (SINGULAIR) 10 mg tablet Take 1 tablet by mouth daily at bedtime. SUMAtriptan (IMITREX) 25 mg tablet Take 1 tablet by mouth at onset of headache and may repeat in 2 hrs if needed. glimepiride (AMARYL) 4 mg tablet Take 1 tablet by mouth daily with breakfast. Dose change, take one daily albuterol HFA (VENTOLIN HFA) 90 mcg/actuation inhaler Inhale 2 Puffs as instructed every 4 hours as needed. loratadine (CLARITIN) 10 mg tablet Take 1 tablet by mouth once daily. urea (CARMOL) 40 % crea Apply 1 application to affected area twice daily. lamoTRIgine (LAMICTAL) 200 mg tablet Take 1 tablet by mouth once daily. (Patient taking differently: Take 25 mg by mouth once daily.) traZODone (DESYREL) 100 mg tablet 300 mg. Take 1 to 2 tablets by mouth at bedtime as needed. LORazepam (ATIVAN) 1 mg tablet Take 1 tablet by mouth twice daily. As needed. citalopram (CELEXA) 40 mg tablet Take 40 mg by mouth once daily. [facility] cyclobenzaprine (FLEXERIL) 10 mg tablet Take 1 tablet by mouth three times a day as needed for muscle spasm. May make drowsy diphenhydrAMINE (BENADRYL) 25 mg capsule Take 1 capsule by mouth every 6 hours as needed for itching/rash. predniSONE (DELTASONE) 10 mg tablet Take 2 tabs po BID for 2 days then 1 tab po BID for 2 days then 1/2 tab po BID for 2 days then 1/2 tab daily for 2 days then stop blood sugar diagnostic (TRUE METRIX GLUCOSE TEST STRIP) test strip Use as instructed CPAP Continue CPAP @ 15 cm of water with humidification. Mask (per patient preference) (more content not included)... [facility] 08-21-2023 Miscellaneous Notes Last office visit: 07/31/23 Next appointment scheduled: 12/07/23 Patient has been identified by name and date of : Yes codeine 30 mg tablet 21 tablet 0 RX INSTRUCTIONS: Patient aware RX will be sent to pharmacy. No need to nofity patient. Controlled medication - must be call in. Davy Walters Pss documented in this encounter [facility] 08-21-2023 Miscellaneous Notes Patient has been identified by name and date of : Yes, Provider Dr. Villarreal Date 08/21/23 Time 9:04 am Pharmacy phones for refill(s): Requested Prescriptions Pending Prescriptions Disp Refills topiramate (TOPAMAX) 100 mg tablet 60 tablet 11 Sig: Take 1 tablet by mouth two times a day. lansoprazole (PREVACID) 30 mg capsule 30 capsule 11 Sig: Take 1 capsule by mouth daily before breakfast. Refused Prescriptions Disp Refills cyclobenzaprine (FLEXERIL) 10 mg tablet [Pharmacy Med Name: cyclobenzaprine 10 mg tablet] 30 tablet 2 Sig: TAKE ONE TABLET BY MOUTH THREE TIMES DAILY NEEDED FOR muscle spasm Refused By: DAVY YORK Reason for Refusal: Patient should contact Prescriber first Date of last office visit in primary care: 07/13/2023 Date of next office visit in primary care: 12/07/2023 Last 2 Encounter Wt Readings: Date: Wt: 07/23/2023 163.3 kg (360 lb) 07/13/2023 159.2 kg (351 lb) Previous labs/tests for medication: Not applicable Please advise. Thank you. Kailee Salinas LPN. documented in this encounter [facility] 08-08-2023 Note Patient Outreach (IN [facility]) LISBETHNANCI ([id number]) 1980 F Date Time Provider Department 08/08/23 RODRI VILLARREAL During your visit today, we recorded the following information about you: Allergies As of Date: 08/08/2023 Noted Allergy Reaction PENICILLINS 08/24/2011 9 - Itching 4 - Hives MELATONIN 11/08/2016 2 - Rash 4 - Hives WELLBUTRIN (BUPROPION) 03/12/2019 5 - Intolerance Comments: Dry mouth--severe, intolerable Date Reviewed: 07/23/2023 Reviewed by: Mica Rodriguez APRN.WATCHGUARD - Fully Assessed Visit Diagnosis:Encounter for screening mammogram for breast cancer [Z12.31] Order(s):[facility] SCREENING [[id number]] Order #: [id number] FUTURE Prescriptions as of 08/13/2023 - codeine 30 mg tablet Take 1 tablet by mouth every 8 hours as needed for pain for up to 7 days. To replace prescription for Tylenol #3 which is not available. Patient may take Tylenol 325 mg when takes codeine - promethazine (PHENERGAN) 12.5 mg tablet Take 1 tablet by mouth four times a day as needed for nausea/vomiting. - naproxen (NAPROSYN) 500 mg tablet Take 1 tablet by mouth two times a day as needed (for pain/inflammation). Take with food. - mometasone-formoterol (DULERA) 50-5 mcg/actuation HFA aerosol inhaler Inhale 2 Puffs as instructed two times a day. Rinse mouth out after use. - cyclobenzaprine (FLEXERIL) 10 mg tablet Take 1 tablet by mouth three times a day as needed for muscle spasm. May make drowsy - pramipexole (MIRAPEX) 1.5 mg tablet Take 1 tablet by mouth daily at bedtime. - Chlorhexidine Gluconate (PERIDEX) 0.12 % solution Use 15 mL as instructed two times a day. Rinse around mouth for 30 seconds then expectorate - silver sulfADIAZINE (SILVADENE) 1 % cream Apply 1 application to affected area once daily. - furosemide (LASIX) 20 mg tablet Take 1-2 tablets by mouth once daily. - blood sugar diagnostic (TRUE METRIX GLUCOSE TEST STRIP) test strip Use as instructed - Albuterol Sulfate 1.25 mg/3 mL nebulizer solution Use 1 Ampule via nebulizer every 4 hours as needed for wheezing/shortness of breath. - bacitracin 500 unit/gram ointment APPLY TO THE AFFECTED AREA(S) EVERY DAY - ARIPiprazole (ABILIFY) 5 mg tablet Take 1 tablet by mouth once daily. - ferrous sulfate 325 mg (65 mg iron) tablet Take 1 tablet by mouth every Sunday,Sunday,Sunday. - metFORMIN (GLUCOPHAGE) 500 mg tablet Take 2 tablets by mouth twice daily with meals. Take one additional 500 mg tab with breakfast or lunch until BS less than 250 - montelukast (SINGULAIR) 10 mg tablet Take 1 tablet by mouth daily at bedtime. - SUMAtriptan (IMITREX) 25 mg tablet Take 1 tablet by mouth at onset of headache and may repeat in 2 hrs if needed. - glimepiride (AMARYL) 4 mg tablet Take 1 tablet by mouth daily with breakfast. Dose change, take one daily - albuterol HFA (VENTOLIN HFA) 90 mcg/actuation inhaler Inhale 2 Puffs as instructed every 4 hours as needed. - CPAP Continue CPAP @ 15 cm of water with humidification. Mask (per patient preference) optional chin strap (if indicated) , filters, tubing, humidifier and lifetime supplies. G47.33 MARIA TERESA on CPAP - Blood-Glucose Meter (TRUE METRIX GLUCOSE METER) Use DIRECTED. Dx:Diabetes 11.9 - lancets (UNILET LANCET) 28 gauge Check sugars once daily and as needed for symptoms of high or low sugars Dx E11.9 Insulin: no - topiramate (TOPAMAX) 100 mg tablet Take 1 tablet by mouth twice daily. - loratadine (CLARITIN) 10 mg tablet Take 1 tablet by mouth once daily. - lansoprazole (PREVACID) 30 mg capsule Take 1 capsule by mouth daily before breakfast. - blood sugar diagnostic (FREESTYLE LITE STRIPS) test strip Test blood sugar(s) 1 times daily and as needed. Dx: Type 2 DM - Controlled E11.9 Insulin: No - diphenhydrAMINE (BENADRYL) 25 mg capsule Take 1 capsule by mouth every 6 hours as needed for Itching/Rash. - FREESTYLE FREEDOM LITE monitoring kit USE DIRECTED - CPAP Needs lifetime supplies (mask, hoses, headgear, filters, water chamber) G47.33 (already has CPAP) - urea (CARMOL) 40 % crea Apply 1 application to affected area twice daily. - lamoTRIgine (LAMICTAL) 200 mg tablet Take 1 tablet by mouth once daily. - traZODone (DESYREL) 100 mg tablet 300 mg. Take 1 to 2 tablets by mouth at bedtime as needed. - LORazepam (ATIVAN) 1 mg tablet Take 1 tablet by mouth twice daily. As needed. - Nebulizer NEBULIZER and Supplies FOR HOME USE. DX: J45.40 - citalopram (CELEXA) 40 mg tablet Take 40 mg by mouth once daily. [facility] Problem List As Of Date 08/08/2023 Noted Resolved Asthma [J45.909] Allergic rhinitis [J30.9] Migraine without aura [G43.009] 03/29/2006 Supervision of other normal [Z34.80] 2006 12/12/2011 Supervision of other high-risk [O09.8*09/26/2006 12/12/2011 Personal history of pre-term labor [Z87.51] 0 (more content not included)... [facility] 08-08-2023 Miscellaneous Notes matteo Bains at [facility] calling regarding pt's script for Tylenol with Codeine #3 sent by [facility] yesterday. 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 Asking provider if wishes to have patient look for a different pharmacy to try to fill this or change the script to something else? Pharmacist states other options that they can fill would be: -codeine 30 mg tablets ordered with separate script of tylenol (would need electronic script for this) -tramadol Please call pharmacy with response. Thank you. [facility] called and they still did not get the prescription for Tylenol with Codeine. Pharmacist came on and the prescription was given verbally. Kailee Salinas LPN documented in this encounter [facility] 08-07-2023 Miscellaneous Notes sent [facility] calls back and reports that they didn't receive the prescription sent earlier today and requesting a new one be sent. Verified twice that is what is needed. Re-pended. Vianney Elise RN [facility] calling regarding pt's script for Tylenol with Codeine #3, ordered by Zunilda Liriano CNP. 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 Asking provider if wishes to have patient look for a different pharmacy to try to fill this or change the script to something else? Please call pharmacy with response. Thank you. documented in this encounter [facility] 08-07-2023 Miscellaneous Notes PATIENT NOTIFIED OF SAME. I sent this in but decreased from the every 6 to every 8 hours as needed. If pain is persistent and not improving then she should be seen to decide on a more terminal supervisor pain management plan. Spoke with pt and she reports last time she was in the office she was given Tylenol with Codeine. Pt asking for a refill on this. Please advise pt. Kailee Salinas LPN Patient has been identified by name and date of : Yes, Provider Dr. Villarreal Date 08/07/23 Time 11:29 am Patient phones for refill(s): Requested Prescriptions Pending Prescriptions Disp Refills acetaminophen-codeine (TYLENOL-CODEINE #3) 300-30 mg per tablet 28 tablet 0 Sig: Take 1 tablet by mouth every 6 hours as needed for pain for up to 7 days. Uses as needed for severe pain. Date of last office visit in primary care: 07/13/2023 Date of next office visit in primary care: 12/07/2023 Last 2 Encounter Wt Readings: Date: Wt: 07/23/2023 163.3 kg (360 lb) 07/13/2023 159.2 kg (351 lb) Previous labs/tests for medication: Not applicable Please advise. Thank you. Kailee Salinas LPN. documented in this encounter [facility] 08-07-2023 Miscellaneous Notes Spoke with pt and information listed below given. Pt verbalizes understanding. Next 2 apts booked. Kailee Salinas LPN 07/31 Virtual visit with Zunilda for urgent issue; 07/13 had appointment to discussed weight loss surgery referral. Needs follow up scheduled in next 3 to 4 months. Should have routine follow up at least every 6 months. May alternate with and Zunilda. The following approved medication requests have been transmitted electronically. Requested Prescriptions Signed Prescriptions Disp Refills promethazine (PHENERGAN) 12.5 mg tablet 120 tablet 1 Sig: Take 1 tablet by mouth four times a day as needed for nausea/vomiting. Authorizing Provider: RODRI VILLARREAL naproxen (NAPROSYN) 500 mg tablet 60 tablet 3 Sig: Take 1 tablet by mouth two times a day as needed (for pain/inflammation). Take with food. Authorizing Provider: RODRI VILLARREAL MD Patient has been identified by name and date of : Yes, Provider Dr Villarreal Date 08/06/23 Time 1508. Pharmacy phones for refill(s): Requested Prescriptions Pending Prescriptions Disp Refills promethazine (PHENERGAN) 12.5 mg tablet 120 tablet 1 Sig: Take 1 tablet by mouth four times a day as needed for nausea/vomiting. naproxen (NAPROSYN) 500 mg tablet 60 tablet 3 Sig: Take 1 tablet by mouth two times a day as needed (for pain/inflammation). Take with food. Date of last office visit in primary care: 07/13/2023 Date of next office visit in primary care: Visit date not found Last 2 Encounter Wt Readings: Date: Wt: 07/23/2023 163.3 kg (360 lb) 07/13/2023 159.2 kg (351 lb) Previous labs/tests for medication: Blood Pressure: BUN (mg/dL) Date Value 03/06/2023 9 02/02/2021 7 Sodium (mmol/L) Date Value 03/06/2023 139 02/02/2021 136 Last 1 Encounter BP Readings: Date: BP: 07/23/2023 120/80 Liver Function: ALT (U/L) Date Value 03/06/2023 26 02/02/2021 62 AST (U/L) Date Value 03/06/2023 39 02/02/2021 71 Please advise. Thank you. Ashley Jarrett RN. documented in this encounter [facility] 07-31-2023 Miscellaneous Notes Prescription below failed to go thru to the pharmacy. Please resend. Kailee Salinas LPN documented in this encounter [facility] 07-31-2023 Note HNO ID: [id number] Author: Zunilda Liriano APRN.WATCHGUARD Service: ? Author Type: Nurse Practitioner Type: Progress Notes Filed: 07/31/2023 8:45 AM Note Text: VIRTUAL VISIT PROGRESS NOTE This is an encounter initiated for an established patient, parent or guardian not originating from a related Evaluation AND Management service provided within the previous 7 days nor leading to an Evaluation AND Management service or procedure within the next 24 hours or soonest available appointment. This is a virtual visit. It required patient-provider interaction for the medical decision making as documented below. Patient has consented to this encounter. Persons Present: patient Data Reviewed: recent notes and medications Patient has consented to patient-provider interaction via telephone/virtual visit for the medical decision making documented in this telephone/virtual visit encounter. Total Time Spent: 18 minutes I have communicated my name and active licensure. The patient's identity and physical location were verified at the time of this visit. Either the patient or their legal fulfillment representative has been informed of the risks and benefits of -- and alternatives to -- treatment through a remote evaluation and consents to proceed with the evaluation remotely. SUBJECTIVE Nanci Bob is a 42 year old female here today for a check up on her medical problems. Chief Complaint Patient presents with: Cough Back Pain JINA Christine presents today acutely for a virtual visit via my chart on the [employer] platform. Concerns of back pain and cough. Both are chronic but lately more bothersome. Wears a CPAP for sleep apnea but wakes up coughing. Coughs up some phlegm at times. Trying to cut back on smoking, about a half a pack per day. No chest tightness or chest pain. No new shortness of breath or trouble breathing. Has COPD and asthma. Roebling like other inhalers did not work as well. Albuterol occasionally. Back pain is in lower back and goes in to hip. Has had relief with use of tylenol-codeine in the past and would like a refill of this. Her medications were reviewed today and her list is now up to date. Medications Current Outpatient Medications Medication Sig mometasone-formoterol (DULERA) 50-5 mcg/actuation HFA aerosol inhaler Inhale 2 Puffs as instructed two times a day. Rinse mouth out after use. acetaminophen-codeine (TYLENOL-CODEINE #3) 300-30 mg per tablet Take 1 tablet by mouth every 6 hours as needed for pain for up to 7 days. Uses as needed for severe pain. cyclobenzaprine (FLEXERIL) 10 mg tablet Take 1 tablet by mouth three times a day as needed for muscle spasm. May make drowsy pramipexole (MIRAPEX) 1.5 mg tablet Take 1 tablet by mouth daily at bedtime. Chlorhexidine Gluconate (PERIDEX) 0.12 % solution Use 15 mL as instructed two times a day. Rinse around mouth for 30 seconds then expectorate silver sulfADIAZINE (SILVADENE) 1 % cream Apply 1 application to affected area once daily. furosemide (LASIX) 20 mg tablet Take 1-2 tablets by mouth once daily. blood sugar diagnostic (TRUE METRIX GLUCOSE TEST STRIP) test strip Use as instructed Albuterol Sulfate 1.25 mg/3 mL nebulizer solution Use 1 Ampule via nebulizer every 4 hours as needed for wheezing/shortness of breath. bacitracin 500 unit/gram ointment APPLY TO THE AFFECTED AREA(S) EVERY DAY promethazine (PHENERGAN) 12.5 mg tablet Take 1 tablet by mouth four times daily as needed for nausea/vomiting. naproxen (NAPROSYN) 500 mg tablet Take 1 tablet by mouth twice daily as needed (for pain/inflammation). Take with food. ARIPiprazole (ABILIFY) 5 mg tablet Take 1 tablet by mouth once daily. ferrous sulfate 325 mg (65 mg iron) tablet Take 1 tablet by mouth every Sunday,Sunday,Sunday. metFORMIN (GLUCOPHAGE) 500 mg tablet Take 2 tablets by mouth twice daily with meals. Take one additional 500 mg tab with breakfast or lunch until BS less than 250 montelukast (SINGULAIR) 10 mg tablet Take 1 tablet by mouth daily at bedtime. SUMAtriptan (IMITREX) 25 mg tablet Take 1 tablet by mouth at onset of headache and may repeat in 2 hrs if needed. glimepiride (AMARYL) 4 mg tablet Take 1 tablet by mouth daily with breakfast. Dose change, take one daily albuterol HFA (VENTOLIN HFA) 90 mcg/actuation inhaler Inhale 2 Puffs as instructed every 4 hours as needed. CPAP Continue CPAP @ 15 cm of water with humidification. Mask (per patient preference) optional chin strap (if indicated) , filters, tubing, humidifier and lifetime supplies. G47.33 MARIA TERESA on CPAP Blood-Glucose Meter (TRUE METRIX GLUCOSE METER) Use DIRECTED. Dx:Diabetes 11.9 lancets (UNILET LANCET) 28 gauge Check sugars once daily and as needed for symptoms of high or low sugars Dx E11.9 Insulin: no topiramate (TOPAMAX) 100 mg tablet Take 1 tablet by mouth twice daily. loratadine (CLARITIN) 10 mg tablet Take 1 tablet by mouth once daily. lansoprazole (PREVACID) 3 (more content not included)... [facility] 07-31-2023 History of Present illness Narrative VIRTUAL VISIT PROGRESS NOTE This is an encounter initiated for an established patient, parent or guardian not originating from a related Evaluation & Management service provided within the previous 7 days nor leading to an Evaluation & Management service or procedure within the next 24 hours or soonest available appointment. This is a virtual visit. It required patient-provider interaction for the medical decision making as documented below. Patient has consented to this encounter. Persons Present: patient Data Reviewed: recent notes and medications Patient has consented to patient-provider interaction via telephone/virtual visit for the medical decision making documented in this telephone/virtual visit encounter. Total Time Spent: 18 minutes I have communicated my name and active licensure. The patient's identity and physical location were verified at the time of this visit. Either the patient or their legal fulfillment representative has been informed of the risks and benefits of -- and alternatives to -- treatment through a remote evaluation and consents to proceed with the evaluation remotely. SUBJECTIVE Nanci Bob is a 42 year old female here today for a check up on her medical problems. Chief Complaint Patient presents with: Cough Back Pain JINA Christine presents today acutely for a virtual visit via my chart on the zoom platform. Concerns of back pain and cough. Both are chronic but lately more bothersome. Wears a CPAP for sleep apnea but wakes up coughing. Coughs up some phlegm at times. Trying to cut back on smoking, about a half a pack per day. No chest tightness or chest pain. No new shortness of breath or trouble breathing. Has COPD and asthma. Roebling like other inhalers did not work as well. Albuterol occasionally. Back pain is in lower back and goes in to hip. Has had relief with use of tylenol-codeine in the past and would like a refill of this. Her medications were reviewed today and her list is now up to date. Medications Current Outpatient Medications Medication Sig mometasone-formoterol (DULERA) 50-5 mcg/actuation HFA aerosol inhaler Inhale 2 Puffs as instructed two times a day. Rinse mouth out after use. acetaminophen-codeine (TYLENOL-CODEINE #3) 300-30 mg per tablet Take 1 tablet by mouth every 6 hours as needed for pain for up to 7 days. Uses as needed for severe pain. cyclobenzaprine (FLEXERIL) 10 mg tablet Take 1 tablet by mouth three times a day as needed for muscle spasm. May make drowsy pramipexole (MIRAPEX) 1.5 mg tablet Take 1 tablet by mouth daily at bedtime. Chlorhexidine Gluconate (PERIDEX) 0.12 % solution Use 15 mL as instructed two times a day. Rinse around mouth for 30 seconds then expectorate silver sulfADIAZINE (SILVADENE) 1 % cream Apply 1 application to affected area once daily. furosemide (LASIX) 20 mg tablet Take 1-2 tablets by mouth once daily. blood sugar diagnostic (TRUE METRIX GLUCOSE TEST STRIP) test strip Use as instructed Albuterol Sulfate 1.25 mg/3 mL nebulizer solution Use 1 Ampule via nebulizer every 4 hours as needed for wheezing/shortness of breath. bacitracin 500 unit/gram ointment APPLY TO THE AFFECTED AREA(S) EVERY DAY promethazine (PHENERGAN) 12.5 mg tablet Take 1 tablet by mouth four times daily as needed for nausea/vomiting. naproxen (NAPROSYN) 500 mg tablet Take 1 tablet by mouth twice daily as needed (for pain/inflammation). Take with food. ARIPiprazole (ABILIFY) 5 mg tablet Take 1 tablet by mouth once daily. ferrous sulfate 325 mg (65 mg iron) tablet Take 1 tablet by mouth every Sunday,Sunday,Sunday. metFORMIN (GLUCOPHAGE) 500 mg tablet Take 2 tablets by mouth twice daily with meals. Take one additional 500 mg tab with breakfast or lunch until BS less than 250 montelukast (SINGULAIR) 10 mg tablet Take 1 tablet by mouth daily at bedtime. SUMAtriptan (IMITREX) 25 mg tablet Take 1 tablet by mouth at onset of headache and may repeat in 2 hrs if needed. glimepiride (AMARYL) 4 mg tablet Take 1 tablet by mouth daily with breakfast. Dose change, take one daily albuterol HFA (VENTOLIN HFA) 90 mcg/actuation inhaler Inhale 2 Puffs as instructed every 4 hours as needed. CPAP Continue CPAP @ 15 cm of water with humidification. Mask (per patient preference) optional chin strap (if indicated) , filters, tubing, humidifier and lifetime supplies. G47.33 MARIA TERESA on CPAP Blood-Glucose Meter (TRUE METRIX GLUCOSE METER) Use DIRECTED. Dx:Diabetes 11.9 lancets (UNILET LANCET) 28 gauge Check sugars once daily and as needed for symptoms of high or low sugars Dx E11.9 Insulin: no topiramate (TOPAMAX) 100 mg tablet Take 1 tablet by mouth twice daily. loratadine (CLARITIN) 10 mg tablet Take 1 tablet by mouth once daily. lansoprazole (PREVACID) 30 mg capsule Take 1 capsule by mouth daily before breakfast. blood sugar diagnostic (FREESTYLE LITE STRIPS) test strip Test blood sugar(s) 1 times daily and as needed. Dx: Type 2 DM - Controlled E11.9 Insulin: No diphenhydrAMINE (BENADRYL) 25 mg capsule Take 1 capsule by mouth every 6 hours as needed for Itching/Rash. FREESTYLE FREEDOM LITE monitoring kit USE DIRECTED CPAP Needs lifetime supplies (mask, hoses, headgear, filters, water chamber) G47.33 (already has CPAP) urea (CARMOL) 40 % crea Apply 1 application to affected area twice daily. lamoTRIgine (LAMICTAL) 200 mg tablet Take 1 tablet by mouth once daily. (Patient taking differently: Take 25 mg by mouth once daily.) traZODone (DESYREL) 100 mg tablet 300 mg. Take 1 to 2 tablets by mouth at bedtime as needed. LORazepam (ATIVAN) 1 mg tablet Take 1 tablet by mouth twice daily. As needed. Nebulizer NEBULIZER and Supplies FOR HOME USE. DX: J45.40 citalopram (CELEXA) 40 mg tablet Take 40 mg by mouth once daily. [facility] No current facility-administered medications for this visit. ALLERGIES Allergen Reactions Penicillins Itching, Hives Melatonin Rash, Hives Wellbutrin [Bupropi* Intolerance Dry mouth--severe, intolerable ACTIVE PROBLEM LIST Hyperlipidemia With Target Ldl Less Than 100 - 03/16/2020 Restless Leg Syndrome - 03/16/2020 Atypical Chest Pain - 02/28/2018 Comment: Abnormal stress / SPECT per [facility] notes. Normal coronaries on heart catheterization [facility] 02/26/2018 Dr. Brooks Morbid Obesity ([facility]) - 09/27/2016 Umbilical Hernia Without Obstruction Or Gangrene - 09/22/2016 Diabetes Mellitus Type 2, Controlled, Without Complications ([facility]) - 12/30/2015 Lumbar Spondylosis - 02/17/2013 Ddd (Degenerative Disc Disease), Lumbar - 02/17/2013 Chronic Radicular Low Back Pain - 07/17/2012 Papanicolaou Smear of Cervix With Low Grade Squamous Intraepithelial Lesion (Lgsil) - 12/26/2011 Moderate depressed bipolar I disorder ([facility]) - 12/26/2011 Migraine Without Aura - 03/29/2006 Asthma Allergic Rhinitis Social History Tobacco Use Smoking status: Every Day Packs/day: 1.00 Years: 8.00 Additional pack years: 0.00 Total pack years: 8.00 Types: Cigarettes Start date: 08/17/1998 Smokeless tobacco: Never Substance Use Topics Alcohol use: Never Drug use: No Comment: Past history of Marjiuana use Review of Systems Respiratory: Positive for cough. Negative for chest tightness, shortness of breath and wheezing. Cardiovascular: Negative. Musculoskeletal: Positive for arthralgias, back pain and myalgias. OBJECTIVE LMP 06/24/2023 Physical Exam Constitutional: General: She is awake. She is not in acute distress. Comments: During the virtual visit she is alert, oriented, breathing is quiet and not labored, no apparent distress. Speaking in full sentences. Neurological: Mental Status: She is alert. Psychiatric: Behavior: Behavior is cooperative. ASSESSMENT/PLAN: 1. Chronic radicular low back pain - ICD9: 724.4, 338.29, ICD10: M54.16, G89.29 (primary diagnosis) Short term RX for the prior pain medication that was helpful. - ACETAMINOPHEN 300 MG-CODEINE 30 MG TABLET 2. Hip pain, left - ICD9: 719.45, ICD10: M25.552 - ACETAMINOPHEN 300 MG-CODEINE 30 MG TABLET 3. Chronic cough - ICD9: 786.2, ICD10: R05.3 Try adding in LABA-LAMA combo inhaler for the cough which is likely from her asthma/COPD/smoking. - MOMETASONE-FORMOTEROL HFA 50 MCG-5 MCG/ACTUATION AEROSOL INHALER 4. Intermittent asthma without complication, unspecified asthma severity - ICD9: 493.90, ICD10: J45.20 - MOMETASONE-FORMOTEROL HFA 50 MCG-5 MCG/ACTUATION AEROSOL INHALER Zunilda Liriano APRN.CNP PDMP website checked and validated. All prescriptions have been APPROPRIATELY filled. No suspicious activity was identified. 07/31/2023 by Zunilda Liriano APRN.CNP Patient verbalizes understanding of instructions from today's visit and in agreement with treatment plan. Questions answered. Agrees to call the office if symptoms do not improve or if they worsen. Return if symptoms worsen or fail to improve, for Keep next scheduled appointment.. Patient has consented to patient-provider interaction via telephone/virtual visit for the medical decision making documented in this telephone/virtual visit encounter. Total Time Spent: 18 minutes documented in this encounter [facility] 07-30-2023 Miscellaneous Notes Patient notified, scheduled VV. Nanci was asking for tablet form not liquid. Vandana Mathias LPN Please let her know I do not see any recent prescriptions in her chart for the tylenol with codeine cough syrup. If she is having a bad cough and needs this medication then I Recommend she do a virtual visit. Patient called to request Tylenol with codeine for a cough. Said Dr. Villarreal has prescribed it for her in the past. Not on med list. Please advise at [phone]; uses [facility] in [place]. documented in this encounter [facility] 07-27-2023 Miscellaneous Notes Patient has been identified by name and date of : Yes, Vianney Elise RN Date 07/27/2023 Time 9:08 am Pharmacy phones for refill(s): Requested Prescriptions Pending Prescriptions Disp Refills cyclobenzaprine (FLEXERIL) 10 mg tablet 30 tablet 2 Sig: Take 1 tablet by mouth three times a day as needed for muscle spasm. May make drowsy Date of last office visit in primary care: 07/13/2023 Date of next office visit in primary care: Visit date not found Last 2 Encounter Wt Readings: Date: Wt: 07/23/2023 163.3 kg (360 lb) 07/13/2023 159.2 kg (351 lb) Previous labs/tests for medication: Blood Pressure: BUN (mg/dL) Date Value 03/06/2023 9 02/02/2021 7 Sodium (mmol/L) Date Value 03/06/2023 139 02/02/2021 136 Last 1 Encounter BP Readings: Date: BP: 07/23/2023 120/80 Liver Function: ALT (U/L) Date Value 03/06/2023 26 02/02/2021 62 AST (U/L) Date Value 03/06/2023 39 02/02/2021 71 Please advise. Thank you. Vianney Elise RN. documented in this encounter [facility] 07-23-2023 Note HNO ID: [id number] Author: Maribel Hughes RT(R) Service: Radiology Author Type: Technologist Type: Progress Notes Filed: 07/23/2023 4:12 PM Note Text: Radiology Service Progress Note PATIENT NAME: Nanci Bob DATE OF SERVICE: July 23, 2023 TIME: 4:04 PM PATIENT IDENTITY VERIFICATION COMPLETED USING TWO (2) IDENTIFIERS: Name and Date of confirmed by patient verbally. FALL SCREENING: Has the patient had 2 falls in the last year or 1 fall with injury or currently using an Ambulatory Assistive Device (Walker, Cane, Wheelchair, Crutches, etc.)? No PATIENT GENDER DATA: Female. status: : No status: NO. PATIENT RELEVANT IMPLANT DATA REVIEWED: Not Applicable RADIOLOGY DEPARTMENT: General X-ray: Exam(s) Completed: Upper Extremity X-Ray(s): Wrist, right PERIPHERAL IV DATA: Not applicable SIGNED BY: RT Margaret(R) July 23, 2023 4:04 PM [facility] 07-23-2023 Note HNO ID: [id number] Author: iMca Rodriguez APRN.WATCHGUARD Service: ? Author Type: Nurse Practitioner Type: Progress Notes Filed: 07/23/2023 4:03 PM Note Text: This note was created using Huitongdariter. Subjective Nanci Bob is a 42 year old female. HPI by patient: Nanci Bob is a 42 year old presenting to the office with multiple complaints. 1.) dental infection. Started approximately 1 week ago. 2.) right wrist pain. Started about 2 days ago. Associated symptoms include dental pain and gum swelling. Admits it's been years since she seen a dentist and has to have a lot of work done. Denies known injury to the wrist but thinks she hit the wall in her sleep. Denies fever at home, difficulty swallowing, and difficulty drinking. OTC not used. No antibiotic use in the last 60 days. ALLERGIES Penicillins Itching, Hives Environmental [Othe* Comment:dust, pet hair=asthma attack Melatonin Rash, Hives Wellbutrin [Bupropi* Intolerance Comment:Dry mouth--severe, intolerable Family History Reviewed Including Cardiac Diseases, Psychiatric Diseases, AND Substance Abuse Problem: other (hepatitis b) Relation: Mother Age of Onset: (Not Specified) Problem: Lung Cancer Relation: Mother Age of Onset: (Not Specified) Problem: other (hip cancer) Relation: Mother Age of Onset: (Not Specified) Problem: Asthma Relation: Father Age of Onset: (Not Specified) Problem: Hypertension Relation: Father Age of Onset: (Not Specified) Problem: Diabetes Relation: Father Age of Onset: (Not Specified) Problem: Hypertension Relation: Brother Age of Onset: (Not Specified) Comment: adhd Problem: Asthma Relation: Brother Age of Onset: (Not Specified) Problem: other (lung cancer) Relation: Maternal Uncle Age of Onset: (Not Specified) Social History Tobacco Use Smoking status: Every Day Packs/day: 1.00 Years: 8.00 Additional pack years: 0.00 Total pack years: 8.00 Types: Cigarettes Start date: 08/17/1998 Smokeless tobacco: Never Alcohol use: Never Drug use: No Comment: Past history of Marjiuana use Active Ambulatory Problems Asthma Allergic rhinitis Migraine without aura Date Noted: 03/29/2006 Papanicolaou smear of cervix with low grade squamous intraepithelial lesion (LGSIL) Date Noted: 12/26/2011 Moderate depressed bipolar I disorder (HCC) Date Noted: 12/26/2011 Chronic radicular low back pain Date Noted: 07/17/2012 Lumbar spondylosis Date Noted: 02/17/2013 DDD (degenerative disc disease), lumbar Date Noted: 02/17/2013 Diabetes mellitus type 2, controlled, without complications (HCC) Date Noted: 12/30/2015 Umbilical hernia without obstruction or gangrene Date Noted: 09/22/2016 Morbid obesity (HCC) Date Noted: 09/27/2016 Atypical chest pain Date Noted: 02/28/2018 Hyperlipidemia with target LDL less than 100 Date Noted: 03/16/2020 Restless leg syndrome Date Noted: 03/16/2020 Resolved Ambulatory Problems Supervision of other normal Date Noted: 2006 Supervision of other high-risk (V23.89) Date Noted: 09/26/2006 Personal history of pre-term labor Date Noted: 11/07/2006 Mild dysplasia of cervix Date Noted: 12/26/2011 Hip tendonitis Date Noted: 12/15/2013 Right hip pain Date Noted: 12/15/2013 Left knee pain Date Noted: 12/11/2016 Osteoarthritis of left knee Date Noted: 12/11/2016 Past Medical History: 2004: Abnormal glandular Papanicolaou smear of cervix No date: Allergic rhinitis, cause unspecified 12/26/2011: Bipolar I disorder, most recent episode (or current) depressed, moderate No date: CPAP (continuous positive airway pressure) dependence No date: Depressive disorder, not elsewhere classified 03/29/2006: Migraine without aura, without mention of intractable migraine without mention of status migrainosus No date: Obesity No date: Unspecified asthma(493.90) Review of Systems Constitutional: Negative. HENT: Positive for dental problem. Eyes: Negative. Respiratory: Negative. Cardiovascular: Negative. Gastrointestinal: Negative. Endocrine: Negative. Genitourinary: Negative. Musculoskeletal: Positive for joint swelling. Skin: Negative. Neurological: Negative. Hematological: Negative. Objective BP 120/80 Pulse 106 Temp 36.3 ?C (97.3 ?F) Resp 16 Wt (!) 163.3 kg (360 lb) LMP 06/24/2023 (Approximate) SpO2 98% BMI 62.77 kg/m? Physical Exam Vitals reviewed. Constitutional: General: She is not in acute distress. Appearance: She is not ill-appearing, toxic-appearing or diaphoretic. HENT: Mouth/Throat: Mouth: Mucous membranes are moist. Dentition: Abnormal dentition. Dental tenderness and dental caries present. Cardiovascular: Rate and Rhythm: Normal rate and regular rhythm. Pulses: Radial pulses are 2+ on the right side. Pulmonary: Effort: Pulmonary effort is normal. Musculoskeletal: Right wrist: Tenderness pres (more content not included)... [facility] 07-23-2023 Miscellaneous Notes Addended by: MICA RODRIGUEZ on: 07/23/2023 04:35 PM Modules accepted: Orders documented in this encounter [facility] 07-23-2023 Miscellaneous Notes MC message sent. documented in this encounter [facility] 07-23-2023 History of Present illness Narrative This note was created using Huitongdariter. Subjective Nanci Bob is a 42 year old female. HPI by patient: Nanic Bob is a 42 year old presenting to the office with multiple complaints. 1.) dental infection. Started approximately 1 week ago. 2.) right wrist pain. Started about 2 days ago. Associated symptoms include dental pain and gum swelling. Admits it's been years since she seen a dentist and has to have a lot of work done. Denies known injury to the wrist but thinks she hit the wall in her sleep. Denies fever at home, difficulty swallowing, and difficulty drinking. OTC not used. No antibiotic use in the last 60 days. ALLERGIES Penicillins Itching, Hives Environmental [Othe* Comment:dust, pet hair=asthma attack Melatonin Rash, Hives Wellbutrin [Bupropi* Intolerance Comment:Dry mouth--severe, intolerable Family History Reviewed Including Cardiac Diseases, Psychiatric Diseases, & Substance Abuse Problem: other (hepatitis b) Relation: Mother Age of Onset: (Not Specified) Problem: Lung Cancer Relation: Mother Age of Onset: (Not Specified) Problem: other (hip cancer) Relation: Mother Age of Onset: (Not Specified) Problem: Asthma Relation: Father Age of Onset: (Not Specified) Problem: Hypertension Relation: Father Age of Onset: (Not Specified) Problem: Diabetes Relation: Father Age of Onset: (Not Specified) Problem: Hypertension Relation: Brother Age of Onset: (Not Specified) Comment: adhd Problem: Asthma Relation: Brother Age of Onset: (Not Specified) Problem: other (lung cancer) Relation: Maternal Uncle Age of Onset: (Not Specified) Social History Tobacco Use Smoking status: Every Day Packs/day: 1.00 Years: 8.00 Additional pack years: 0.00 Total pack years: 8.00 Types: Cigarettes Start date: 08/17/1998 Smokeless tobacco: Never Alcohol use: Never Drug use: No Comment: Past history of Marjiuana use Active Ambulatory Problems Asthma Allergic rhinitis Migraine without aura Date Noted: 03/29/2006 Papanicolaou smear of cervix with low grade squamous intraepithelial lesion (LGSIL) Date Noted: 12/26/2011 Moderate depressed bipolar I disorder (HCC) Date Noted: 12/26/2011 Chronic radicular low back pain Date Noted: 07/17/2012 Lumbar spondylosis Date Noted: 02/17/2013 DDD (degenerative disc disease), lumbar Date Noted: 02/17/2013 Diabetes mellitus type 2, controlled, without complications (HCC) Date Noted: 12/30/2015 Umbilical hernia without obstruction or gangrene Date Noted: 09/22/2016 Morbid obesity (HCC) Date Noted: 09/27/2016 Atypical chest pain Date Noted: 02/28/2018 Hyperlipidemia with target LDL less than 100 Date Noted: 03/16/2020 Restless leg syndrome Date Noted: 03/16/2020 Resolved Ambulatory Problems Supervision of other normal Date Noted: 2006 Supervision of other high-risk (V23.89) Date Noted: 09/26/2006 Personal history of pre-term labor Date Noted: 11/07/2006 Mild dysplasia of cervix Date Noted: 12/26/2011 Hip tendonitis Date Noted: 12/15/2013 Right hip pain Date Noted: 12/15/2013 Left knee pain Date Noted: 12/11/2016 Osteoarthritis of left knee Date Noted: 12/11/2016 Past Medical History: 2003: Abnormal glandular Papanicolaou smear of cervix No date: Allergic rhinitis, cause unspecified 12/26/2011: Bipolar I disorder, most recent episode (or current) depressed, moderate No date: CPAP (continuous positive airway pressure) dependence No date: Depressive disorder, not elsewhere classified 03/29/2006: Migraine without aura, without mention of intractable migraine without mention of status migrainosus No date: Obesity No date: Unspecified asthma(493.90) Review of Systems Constitutional: Negative. HENT: Positive for dental problem. Eyes: Negative. Respiratory: Negative. Cardiovascular: Negative. Gastrointestinal: Negative. Endocrine: Negative. Genitourinary: Negative. Musculoskeletal: Positive for joint swelling. Skin: Negative. Neurological: Negative. Hematological: Negative. Objective BP 120/80 Pulse 106 Temp 36.3 C (97.3 F) Resp 16 Wt (!) 163.3 kg (360 lb) LMP 06/24/2023 (Approximate) SpO2 98% BMI 62.77 kg/m Physical Exam Vitals reviewed. Constitutional: General: She is not in acute distress. Appearance: She is not ill-appearing, toxic-appearing or diaphoretic. HENT: Mouth/Throat: Mouth: Mucous membranes are moist. Dentition: Abnormal dentition. Dental tenderness and dental caries present. Cardiovascular: Rate and Rhythm: Normal rate and regular rhythm. Pulses: Radial pulses are 2+ on the right side. Pulmonary: Effort: Pulmonary effort is normal. Musculoskeletal: Right wrist: Tenderness present. Swelling: very slight.Decreased range of motion. Normal pulse. Lymphadenopathy: Head: Right side of head: No submandibular or tonsillar adenopathy. Left side of head: No submandibular or tonsillar adenopathy. Cervical: No cervical adenopathy. Psychiatric: Behavior: Behavior is cooperative. Assessment and Plan (K04.7) Dental infection (primary encounter diagnosis) Plan: cephALEXin (KEFLEX) 500 mg capsule, Chlorhexidine Gluconate (PERIDEX) 0.12 % solution (M25.531) Right wrist pain Plan: methylPREDNISolone (MEDROL DOSE-PACK) 4 mg Dose-Pack, XR WRIST INJURY 4V PA/LAT/OBL/SCAPH RIGHT (Z88.0) Penicillin allergy Plan: Dental infection, PCN allergy, will rx cephalexin and peridex mouth wash. -Right wrist pain with no known injury. Will get xray, result will go to [facility] as a message. -Steroids with food. Ice and heat in rotation. -OTC tylenol as directed on the bottle -Make follow up with primary care for monitoring and resolution in symptoms. -Signs that warrant an ER evaluation: Sudden change/worsening in condition, lethargy, signs of dehydration, fever greater than 102 F that is not responding to Tylenol or ibuprofen (Motrin, Advil), drooling, difficulty swallowing, difficulty breathing, shortness of breath, chest pain, evidence of airway compromise (tripod position, neck extension, retractions), seizures, changes in mental status, or other concerns. The patient will pursue further outpatient evaluation with the primary care physician or another Urgent Care/Express Care as outlined in the after visit summary. The patient is agreeable to this plan of care and follow-up instructions have been explained in detail. The patient has received these instructions in written format and have expressed an understanding of the after visit summary. Medical Decision Making: Level: 4 - Moderate I spent a total of 20 minutes on the date of the service which included preparing to see the patient, [id number] patient care, completing clinical documentation, obtaining and/or reviewing separately obtained history, performing a medically appropriate examination, counseling and educating the patient/family/caregiver, and ordering medications, tests, or procedures. documented in this encounter [facility] 07-23-2023 Instructions Mica Rodriguez APRN.CNP - 07/23/2023 3:45 PM EST (K04.7) Dental infection (primary encounter diagnosis) Plan: cephALEXin (KEFLEX) 500 mg capsule, Chlorhexidine Gluconate (PERIDEX) 0.12 % solution (M25.531) Right wrist pain Plan: methylPREDNISolone (MEDROL DOSE-PACK) 4 mg Dose-Pack Dental infection, PCN allergy, will rx cephalexin and peridex mouth wash. -Right wrist pain with no known injury. Will get xray, result will go to [facility] as a message. -Steroids with food. Ice and heat in rotation. -OTC tylenol as directed on the bottle -Make follow up with primary care for monitoring and resolution in symptoms. -Signs that warrant an ER evaluation: Sudden change/worsening in condition, lethargy, signs of dehydration, fever greater than 102 F that is not responding to Tylenol or ibuprofen (Motrin, Advil), drooling, difficulty swallowing, difficulty breathing, shortness of breath, chest pain, evidence of airway compromise (tripod position, neck extension, retractions), seizures, changes in mental status, or other concerns. documented in this encounter [facility] 07-13-2023 Note HNO ID: [id number] Author: Zunilda Liriano APRN.NARENDRA Service: ? Author Type: Nurse Practitioner Type: Progress Notes Filed: 07/13/2023 3:43 PM Note Text: SUBJECTIVE Nanci Bob is a 42 year old female here today for a check up on her medical problems. Chief Complaint Patient presents with: Consult: would like referral for weight loss surgery HPI Nanci Bob is a 42 year old female. Here today for concerns of a referral to weight loss. Still having issues with prolonged wound healing. Dr. Lord advised she needs to lose weight. She would like a referral for weight loss surgery. Co-morbid condition of diabetes, hyperlipidemia. Her medications were reviewed today and her list is now up to date. Medications Current Outpatient Medications Medication Sig furosemide (LASIX) 20 mg tablet Take 1-2 tablets by mouth once daily. Albuterol Sulfate 1.25 mg/3 mL nebulizer solution Use 1 Ampule via nebulizer every 4 hours as needed for wheezing/shortness of breath. bacitracin 500 unit/gram ointment APPLY TO THE AFFECTED AREA(S) EVERY DAY cyclobenzaprine (FLEXERIL) 10 mg tablet Take 1 tablet by mouth three times daily as needed for muscle spasm. May make drowsy promethazine (PHENERGAN) 12.5 mg tablet Take 1 tablet by mouth four times daily as needed for nausea/vomiting. naproxen (NAPROSYN) 500 mg tablet Take 1 tablet by mouth twice daily as needed (for pain/inflammation). Take with food. ARIPiprazole (ABILIFY) 5 mg tablet Take 1 tablet by mouth once daily. ferrous sulfate 325 mg (65 mg iron) tablet Take 1 tablet by mouth every Sunday,Sunday,Sunday. metFORMIN (GLUCOPHAGE) 500 mg tablet Take 2 tablets by mouth twice daily with meals. Take one additional 500 mg tab with breakfast or lunch until BS less than 250 montelukast (SINGULAIR) 10 mg tablet Take 1 tablet by mouth daily at bedtime. SUMAtriptan (IMITREX) 25 mg tablet Take 1 tablet by mouth at onset of headache and may repeat in 2 hrs if needed. glimepiride (AMARYL) 4 mg tablet Take 1 tablet by mouth daily with breakfast. Dose change, take one daily albuterol HFA (VENTOLIN HFA) 90 mcg/actuation inhaler Inhale 2 Puffs as instructed every 4 hours as needed. topiramate (TOPAMAX) 100 mg tablet Take 1 tablet by mouth twice daily. loratadine (CLARITIN) 10 mg tablet Take 1 tablet by mouth once daily. lansoprazole (PREVACID) 30 mg capsule Take 1 capsule by mouth daily before breakfast. pramipexole (MIRAPEX) 1.5 mg tablet Take 1 tablet by mouth daily at bedtime. diphenhydrAMINE (BENADRYL) 25 mg capsule Take 1 capsule by mouth every 6 hours as needed for Itching/Rash. lamoTRIgine (LAMICTAL) 200 mg tablet Take 1 tablet by mouth once daily. (Patient taking differently: Take 25 mg by mouth once daily.) traZODone (DESYREL) 100 mg tablet 300 mg. Take 1 to 2 tablets by mouth at bedtime as needed. LORazepam (ATIVAN) 1 mg tablet Take 1 tablet by mouth twice daily. As needed. citalopram (CELEXA) 40 mg tablet Take 40 mg by mouth once daily. [facility] silver sulfADIAZINE (SILVADENE) 1 % cream Apply 1 application to affected area once daily. (Patient not taking: Reported on 07/13/2023) blood sugar diagnostic (TRUE METRIX GLUCOSE TEST STRIP) test strip Use as instructed CPAP Continue CPAP @ 15 cm of water with humidification. Mask (per patient preference) optional chin strap (if indicated) , filters, tubing, humidifier and lifetime supplies. G47.33 MARIA TERESA on CPAP Blood-Glucose Meter (TRUE METRIX GLUCOSE METER) Use DIRECTED. Dx:Diabetes 11.9 lancets (UNILET LANCET) 28 gauge Check sugars once daily and as needed for symptoms of high or low sugars Dx E11.9 Insulin: no blood sugar diagnostic (FREESTYLE LITE STRIPS) test strip Test blood sugar(s) 1 times daily and as needed. Dx: Type 2 DM - Controlled E11.9 Insulin: No FREESTYLE FREEDOM LITE monitoring kit USE DIRECTED CPAP Needs lifetime supplies (mask, hoses, headgear, filters, water chamber) G47.33 (already has CPAP) urea (CARMOL) 40 % crea Apply 1 application to affected area twice daily. (Patient not taking: Reported on 07/13/2023) Nebulizer NEBULIZER and Supplies FOR HOME USE. DX: J45.40 No current facility-administered medications for this visit. ALLERGIES Allergen Reactions Penicillins Itching, Hives Environmental [Othe* dust, pet hair=asthma attack Melatonin Rash, Hives Wellbutrin [Bupropi* Intolerance Dry mouth--severe, intolerable ACTIVE PROBLEM LIST Hyperlipidemia With Target Ldl Less Than 100 - 03/16/2020 Restless Leg Syndrome - 03/16/2020 Atypical Chest Pain - 02/28/2018 Comment: Abnormal stress / SPECT per [facility] notes. Normal coronaries on heart catheterization [facility] 02/26/2018 Dr. Brooks Morbid Obesity ([facility]) - 09/27/2016 Umbilical Hernia Without Obstruction Or Gangrene - 09/22/2016 Diabetes Mellitus Type 2, Controlled, Without Complications ([facility]) - 12/30/2015 Lumbar Spondylosis - 02/17/2013 (more content not included)... [facility] 07-13-2023 Instructions Zunilda Liriano APRN.CNP - 07/13/2023 3:[address] Rahman Locations [address] Medical [facility] Building [address] [place] [address] Appointments Ready to get started? We d love to help you. To schedule a session with a registered dietitian to help you make nutrition and lifestyle changes to assist with weight loss, call [phone]. To schedule an appointment with a physician who specializes in medical weight management, call [phone]. documented in this encounter [facility] 07-13-2023 History of Present illness Narrative SUBJECTIVE Nanci Bob is a 42 year old female here today for a check up on her medical problems. Chief Complaint Patient presents with: Consult: would like referral for weight loss surgery HPI Nanci Bob is a 42 year old female. Here today for concerns of a referral to weight loss. Still having issues with prolonged wound healing. Dr. Lord advised she needs to lose weight. She would like a referral for weight loss surgery. Co-morbid condition of diabetes, hyperlipidemia. Her medications were reviewed today and her list is now up to date. Medications Current Outpatient Medications Medication Sig furosemide (LASIX) 20 mg tablet Take 1-2 tablets by mouth once daily. Albuterol Sulfate 1.25 mg/3 mL nebulizer solution Use 1 Ampule via nebulizer every 4 hours as needed for wheezing/shortness of breath. bacitracin 500 unit/gram ointment APPLY TO THE AFFECTED AREA(S) EVERY DAY cyclobenzaprine (FLEXERIL) 10 mg tablet Take 1 tablet by mouth three times daily as needed for muscle spasm. May make drowsy promethazine (PHENERGAN) 12.5 mg tablet Take 1 tablet by mouth four times daily as needed for nausea/vomiting. naproxen (NAPROSYN) 500 mg tablet Take 1 tablet by mouth twice daily as needed (for pain/inflammation). Take with food. ARIPiprazole (ABILIFY) 5 mg tablet Take 1 tablet by mouth once daily. ferrous sulfate 325 mg (65 mg iron) tablet Take 1 tablet by mouth every Sunday,Sunday,Sunday. metFORMIN (GLUCOPHAGE) 500 mg tablet Take 2 tablets by mouth twice daily with meals. Take one additional 500 mg tab with breakfast or lunch until BS less than 250 montelukast (SINGULAIR) 10 mg tablet Take 1 tablet by mouth daily at bedtime. SUMAtriptan (IMITREX) 25 mg tablet Take 1 tablet by mouth at onset of headache and may repeat in 2 hrs if needed. glimepiride (AMARYL) 4 mg tablet Take 1 tablet by mouth daily with breakfast. Dose change, take one daily albuterol HFA (VENTOLIN HFA) 90 mcg/actuation inhaler Inhale 2 Puffs as instructed every 4 hours as needed. topiramate (TOPAMAX) 100 mg tablet Take 1 tablet by mouth twice daily. loratadine (CLARITIN) 10 mg tablet Take 1 tablet by mouth once daily. lansoprazole (PREVACID) 30 mg capsule Take 1 capsule by mouth daily before breakfast. pramipexole (MIRAPEX) 1.5 mg tablet Take 1 tablet by mouth daily at bedtime. diphenhydrAMINE (BENADRYL) 25 mg capsule Take 1 capsule by mouth every 6 hours as needed for Itching/Rash. lamoTRIgine (LAMICTAL) 200 mg tablet Take 1 tablet by mouth once daily. (Patient taking differently: Take 25 mg by mouth once daily.) traZODone (DESYREL) 100 mg tablet 300 mg. Take 1 to 2 tablets by mouth at bedtime as needed. LORazepam (ATIVAN) 1 mg tablet Take 1 tablet by mouth twice daily. As needed. citalopram (CELEXA) 40 mg tablet Take 40 mg by mouth once daily. [facility] silver sulfADIAZINE (SILVADENE) 1 % cream Apply 1 application to affected area once daily. (Patient not taking: Reported on 07/13/2023) blood sugar diagnostic (TRUE METRIX GLUCOSE TEST STRIP) test strip Use as instructed CPAP Continue CPAP @ 15 cm of water with humidification. Mask (per patient preference) optional chin strap (if indicated) , filters, tubing, humidifier and lifetime supplies. G47.33 MARIA TERESA on CPAP Blood-Glucose Meter (TRUE METRIX GLUCOSE METER) Use DIRECTED. Dx:Diabetes 11.9 lancets (UNILET LANCET) 28 gauge Check sugars once daily and as needed for symptoms of high or low sugars Dx E11.9 Insulin: no blood sugar diagnostic (FREESTYLE LITE STRIPS) test strip Test blood sugar(s) 1 times daily and as needed. Dx: Type 2 DM - Controlled E11.9 Insulin: No FREESTYLE FREEDOM LITE monitoring kit USE DIRECTED CPAP Needs lifetime supplies (mask, hoses, headgear, filters, water chamber) G47.33 (already has CPAP) urea (CARMOL) 40 % crea Apply 1 application to affected area twice daily. (Patient not taking: Reported on 07/13/2023) Nebulizer NEBULIZER and Supplies FOR HOME USE. DX: J45.40 No current facility-administered medications for this visit. ALLERGIES Allergen Reactions Penicillins Itching, Hives Environmental [Othe* dust, pet hair=asthma attack Melatonin Rash, Hives Wellbutrin [Bupropi* Intolerance Dry mouth--severe, intolerable ACTIVE PROBLEM LIST Hyperlipidemia With Target Ldl Less Than 100 - 03/16/2020 Restless Leg Syndrome - 03/16/2020 Atypical Chest Pain - 02/28/2018 Comment: Abnormal stress / SPECT per [facility] notes. Normal coronaries on heart catheterization [facility] 02/26/2018 Dr. Brooks Morbid Obesity ([facility]) - 09/27/2016 Umbilical Hernia Without Obstruction Or Gangrene - 09/22/2016 Diabetes Mellitus Type 2, Controlled, Without Complications ([facility]) - 12/30/2015 Lumbar Spondylosis - 02/17/2013 Ddd (Degenerative Disc Disease), Lumbar - 02/17/2013 Chronic Radicular Low Back Pain - 07/17/2012 Papanicolaou Smear of Cervix With Low Grade Squamous Intraepithelial Lesion (Lgsil) - 12/26/2011 Moderate depressed bipolar I disorder ([facility]) - 12/26/2011 Migraine Without Aura - 03/29/2006 Asthma Allergic Rhinitis Social History Tobacco Use Smoking status: Every Day Packs/day: 1.00 Years: 8.00 Additional pack years: 0.00 Total pack years: 8.00 Types: Cigarettes Start date: 08/17/1998 Smokeless tobacco: Never Substance Use Topics Alcohol use: Never Drug use: No Comment: Past history of Marjiuana use Review of Systems Respiratory: Negative. Cardiovascular: Negative. OBJECTIVE BP 110/78 Pulse 99 Wt 351 lb (159.2kg) SpO2 98% LMP 06/24/2023 Physical Exam Vitals and nursing note reviewed. Constitutional: General: She is awake. She is not in acute distress. Appearance: Normal appearance. She is well-developed and well-groomed. She is not ill-appearing, toxic-appearing or diaphoretic. HENT: Head: Normocephalic. Right Ear: External ear normal. Left Ear: External ear normal. Nose: Nose normal. Eyes: General: Vision grossly intact. Conjunctiva/sclera: Conjunctivae normal. Pupils: Pupils are equal, round, and reactive to light. Neck: Vascular: No JVD. Trachea: Trachea normal. Pulmonary: Effort: Pulmonary effort is normal. No accessory muscle usage, prolonged expiration or respiratory distress. Musculoskeletal: Cervical back: Neck supple. Skin: General: Skin is warm and dry. Capillary Refill: Capillary refill takes less than 2 seconds. Neurological: General: No focal deficit present. Mental Status: She is alert and oriented to person, place, and time. Mental status is at baseline. Psychiatric: Attention and Perception: Attention and perception normal. Mood and Affect: Mood and affect normal. Speech: Speech normal. Behavior: Behavior normal. Behavior is cooperative. Thought Content: Thought content normal. Cognition and Memory: Cognition and memory normal. Judgment: Judgment normal. ASSESSMENT/PLAN: 1. Class 3 severe obesity due to excess calories with serious comorbidity and body mass index (BMI) of 60.0 to 69.9 in adult ([facility]) - ICD9: 278.01, V85.44, ICD10: E66.01, Z68.44 - CONSULT TO [employer] ([facility] ONLY) Portions of this note have been entered by ancillary staff. I have reviewed and when necessary edited, so that they are an adequate record of my encounter with this patient Please note that parts of this document were created using voice recognition software and therefore may contain grammatical errors. Patient verbalizes understanding of instructions from today's visit and in agreement with treatment plan. Questions answered. Agrees to call the office if questions, concerns of issues with acute symptoms not improving or if they worsen. See diagnoses and orders for additional plan(s). Allergies and medications were reviewed, list was updated, and refills given if needed. Past medical, surgical, social, and family history reviewed and updated as appropriate. Encouraged proper diet & exercise as well as compliance with taking medications. Age-appropriate health preventative measures were discussed. Return if symptoms worsen or fail to improve, for Keep next scheduled appointment.. Zunilda Liriano APRN-NARENDRA documented in this encounter [facility] 07-02-2023 Miscellaneous Notes Date of last office: 06/01/2023 Date of next office visit: 07/09/2023 Requested Prescriptions Pending Prescriptions Disp Refills furosemide (LASIX) 20 mg tablet 60 tablet 1 Sig: Take 1-2 tablets by mouth once daily. Date of Last Labs: 03/06/2023 Please advise. Thank you. Nuzhat Montes RN. documented in this encounter [facility] 06-29-2023 Miscellaneous Notes Date of last office: 06/01/2023 Date of next office visit: 07/09/2023 Requested Prescriptions Pending Prescriptions Disp Refills blood sugar diagnostic (TRUE METRIX GLUCOSE TEST STRIP) test strip 50 Strip 11 Sig: Use as instructed Date of Last Labs: 03/06/2023 Please advise. Thank you. Nuzhat Montes RN. documented in this encounter [facility] 06-01-2023 Note HNO ID: [id number] Author: Zunilda Liriano APRN.WATCHGUARD Service: ? Author Type: Nurse Practitioner Type: Progress Notes Filed: 06/01/2023 4:32 PM Note Text: SUBJECTIVE Nanci Bob is a 42 year old female here today for a check up on her medical problems. Chief Complaint Patient presents with: Recheck HPI Nanci Bob is a 42 year old female established patient. Here today for a 4 week follow up. Recent issues with cellulitis, open wound to the right calf area. Concerns of this not healing. She has been trying to use medihoney on the area but also removing the scab and applying hydrogen peroxide. No reported fever, chills. She is diabetic but per patient sugars are improved. She does smoke. Her medications were reviewed today and her list is now up to date. Medications Current Outpatient Medications Medication Sig cyclobenzaprine (FLEXERIL) 10 mg tablet Take 1 tablet by mouth three times daily as needed for muscle spasm. May make drowsy Albuterol Sulfate 1.25 mg/3 mL nebulizer solution Use 1 Ampule via nebulizer every 4 hours as needed for wheezing/shortness of breath. naproxen (NAPROSYN) 500 mg tablet Take 1 tablet by mouth twice daily as needed (for pain/inflammation). Take with food. furosemide (LASIX) 20 mg tablet Take 1-2 tablets by mouth once daily. ARIPiprazole (ABILIFY) 5 mg tablet Take 1 tablet by mouth once daily. ferrous sulfate 325 mg (65 mg iron) tablet Take 1 tablet by mouth every Sunday,Sunday,Sunday. metFORMIN (GLUCOPHAGE) 500 mg tablet Take 2 tablets by mouth twice daily with meals. Take one additional 500 mg tab with breakfast or lunch until BS less than 250 montelukast (SINGULAIR) 10 mg tablet Take 1 tablet by mouth daily at bedtime. SUMAtriptan (IMITREX) 25 mg tablet Take 1 tablet by mouth at onset of headache and may repeat in 2 hrs if needed. glimepiride (AMARYL) 4 mg tablet Take 1 tablet by mouth daily with breakfast. Dose change, take one daily albuterol HFA (VENTOLIN HFA) 90 mcg/actuation inhaler Inhale 2 Puffs as instructed every 4 hours as needed. topiramate (TOPAMAX) 100 mg tablet Take 1 tablet by mouth twice daily. loratadine (CLARITIN) 10 mg tablet Take 1 tablet by mouth once daily. lansoprazole (PREVACID) 30 mg capsule Take 1 capsule by mouth daily before breakfast. pramipexole (MIRAPEX) 1.5 mg tablet Take 1 tablet by mouth daily at bedtime. diphenhydrAMINE (BENADRYL) 25 mg capsule Take 1 capsule by mouth every 6 hours as needed for Itching/Rash. urea (CARMOL) 40 % crea Apply 1 application to affected area twice daily. lamoTRIgine (LAMICTAL) 200 mg tablet Take 1 tablet by mouth once daily. (Patient taking differently: Take 25 mg by mouth once daily.) traZODone (DESYREL) 100 mg tablet 300 mg. Take 1 to 2 tablets by mouth at bedtime as needed. LORazepam (ATIVAN) 1 mg tablet Take 1 tablet by mouth twice daily. As needed. citalopram (CELEXA) 40 mg tablet Take 40 mg by mouth once daily. [facility] bacitracin 500 unit/gram ointment Apply to affected area once daily. promethazine (PHENERGAN) 12.5 mg tablet Take 1 tablet by mouth four times daily as needed for nausea/vomiting. blood sugar diagnostic (TRUE METRIX GLUCOSE TEST STRIP) test strip Use as instructed CPAP Continue CPAP @ 15 cm of water with humidification. Mask (per patient preference) optional chin strap (if indicated) , filters, tubing, humidifier and lifetime supplies. G47.33 MARIA TERESA on CPAP Blood-Glucose Meter (TRUE METRIX GLUCOSE METER) Use DIRECTED. Dx:Diabetes 11.9 lancets (UNILET LANCET) 28 gauge Check sugars once daily and as needed for symptoms of high or low sugars Dx E11.9 Insulin: no blood sugar diagnostic (FREESTYLE LITE STRIPS) test strip Test blood sugar(s) 1 times daily and as needed. Dx: Type 2 DM - Controlled E11.9 Insulin: No FREESTYLE FREEDOM LITE monitoring kit USE DIRECTED CPAP Needs lifetime supplies (mask, hoses, headgear, filters, water chamber) G47.33 (already has CPAP) Nebulizer NEBULIZER and Supplies FOR HOME USE. DX: J45.40 No current facility-administered medications for this visit. ALLERGIES Allergen Reactions Penicillins Itching, Hives Environmental [Othe* dust, pet hair=asthma attack Melatonin Rash, Hives Wellbutrin [Bupropi* Intolerance Dry mouth--severe, intolerable ACTIVE PROBLEM LIST Hyperlipidemia With Target Ldl Less Than 100 - 03/16/2020 Restless Leg Syndrome - 03/16/2020 Atypical Chest Pain - 02/28/2018 Comment: Abnormal stress / SPECT per [facility] notes. Normal coronaries on heart catheterization [facility] 02/26/2018 Dr. Brooks Morbid Obesity ([facility]) - 09/27/2016 Umbilical Hernia Without Obstruction Or Gangrene - 09/22/2016 Diabetes Mellitus Type 2, Controlled, Without Complications ([facility]) - 12/30/2015 Lumbar Spondylosis - 02/17/2013 Ddd (Degenerative Disc Disease), Lumbar - 02/17/2013 Chronic Radicular Low Back Pain - 07/17/2012 Papanicolaou Smear of (more content not included)... [facility] 06-01-2023 Miscellaneous Notes Patient has been identified by name and date of : Pharmacy phones for refill(s): Requested Prescriptions Pending Prescriptions Disp Refills cyclobenzaprine (FLEXERIL) 10 mg tablet 30 tablet 2 Sig: Take 1 tablet by mouth three times daily as needed for muscle spasm. May make drowsy Date of last office visit in primary care: 05/04/2023, has appt 06/01/2023 Last 2 Encounter Wt Readings: Date: Wt: 05/04/2023 160.1 kg (353 lb) 04/27/2023 166 kg (366 lb) Previous labs/tests for medication: Not applicable Please advise. Thank you. Jessica Mason LPN documented in this encounter [facility] 05-08-2023 Miscellaneous Notes Rec'd denial. This is OTC and this class of medicine is excluded. Pharmacy notified. Message left to pt with info. VICENTE BOB (Levi: [id number]) - [id number] [facility] Wound/Burn Dressing gel Status: Sent To Plan Created: May 05, 2023 [id number] Sent: May 08, 2023 Open Anton As Not Sent Archive documented in this encounter [facility] 05-04-2023 Note HNO ID: [id number] Author: Zunilda Liriano APRN.[facility] Service: ? Author Type: Nurse Practitioner Type: Progress Notes Filed: 05/04/2023 3:36 PM Note Text: SUBJECTIVE Nanci Bob is a 42 year old female here today for a check up on her medical problems. Chief Complaint Patient presents with: Recheck HPI Nanci Bob is a 42 year old female established patient who presents today for a follow up on cellulitis. Issues with lesions to her abdomen and right lower leg. Saw Dr. Villarreal last week, started on Bactrim, applying medi-honey. She feels the areas are improving. Has been washing them daily. Redness better. Feeling better. She is a diabetic. Issues with swelling to the BLE. Also she is not sleeping well, has not been taking her Abilify lately. [facility]. Her medications were reviewed today and her list is now up to date. Medications Current Outpatient Medications Medication Sig mupirocin (BACTROBAN) 2 % ointment Apply 1 application to affected area twice daily. Treat each sore for 10 days. ferrous sulfate 325 mg (65 mg iron) tablet Take 1 tablet by mouth every Sunday,Sunday,Sunday. sulfamethoxazole-trimethoprim (BACTRIM DS) 800-160 mg per tablet Take 2 tablets by mouth twice daily for 14 days. cyclobenzaprine (FLEXERIL) 10 mg tablet Take 1 tablet by mouth three times daily as needed for muscle spasm. May make drowsy metFORMIN (GLUCOPHAGE) 500 mg tablet Take 2 tablets by mouth twice daily with meals. Take one additional 500 mg tab with breakfast or lunch until BS less than 250 montelukast (SINGULAIR) 10 mg tablet Take 1 tablet by mouth daily at bedtime. naproxen (NAPROSYN) 500 mg tablet Take 1 tablet by mouth twice daily as needed (for pain/inflammation). Take with food. SUMAtriptan (IMITREX) 25 mg tablet Take 1 tablet by mouth at onset of headache and may repeat in 2 hrs if needed. glimepiride (AMARYL) 4 mg tablet Take 1 tablet by mouth daily with breakfast. Dose change, take one daily albuterol HFA (VENTOLIN HFA) 90 mcg/actuation inhaler Inhale 2 Puffs as instructed every 4 hours as needed. Albuterol Sulfate 1.25 mg/3 mL nebulizer solution Use 1 Ampule via nebulizer every 4 hours as needed for wheezing/shortness of breath. topiramate (TOPAMAX) 100 mg tablet Take 1 tablet by mouth twice daily. loratadine (CLARITIN) 10 mg tablet Take 1 tablet by mouth once daily. lansoprazole (PREVACID) 30 mg capsule Take 1 capsule by mouth daily before breakfast. pramipexole (MIRAPEX) 1.5 mg tablet Take 1 tablet by mouth daily at bedtime. diphenhydrAMINE (BENADRYL) 25 mg capsule Take 1 capsule by mouth every 6 hours as needed for Itching/Rash. urea (CARMOL) 40 % crea Apply 1 application to affected area twice daily. lamoTRIgine (LAMICTAL) 200 mg tablet Take 1 tablet by mouth once daily. (Patient taking differently: Take 150 mg by mouth twice daily.) traZODone (DESYREL) 100 mg tablet 300 mg. Take 1 to 2 tablets by mouth at bedtime as needed. LORazepam (ATIVAN) 1 mg tablet Take 1 tablet by mouth twice daily. As needed. citalopram (CELEXA) 40 mg tablet Take 40 mg by mouth once daily. [facility] furosemide (LASIX) 20 mg tablet Take 1-2 tablets by mouth once daily. ARIPiprazole (ABILIFY) 5 mg tablet Take 1 tablet by mouth once daily. honey ([employer]) 80 % gel Apply to affected area once daily. blood sugar diagnostic (TRUE METRIX GLUCOSE TEST STRIP) test strip Use as instructed CPAP Continue CPAP @ 15 cm of water with humidification. Mask (per patient preference) optional chin strap (if indicated) , filters, tubing, humidifier and lifetime supplies. G47.33 MARIA TERESA on CPAP Blood-Glucose Meter (TRUE METRIX GLUCOSE METER) Use DIRECTED. Dx:Diabetes 11.9 lancets (UNILET LANCET) 28 gauge Check sugars once daily and as needed for symptoms of high or low sugars Dx E11.9 Insulin: no blood sugar diagnostic (FREESTYLE LITE STRIPS) test strip Test blood sugar(s) 1 times daily and as needed. Dx: Type 2 DM - Controlled E11.9 Insulin: No FREESTYLE FREEDOM LITE monitoring kit USE DIRECTED CPAP Needs lifetime supplies (mask, hoses, headgear, filters, water chamber) G47.33 (already has CPAP) Nebulizer NEBULIZER and Supplies FOR HOME USE. DX: J45.40 No current facility-administered medications for this visit. ALLERGIES Allergen Reactions Penicillins Itching, Hives Environmental [Othe* dust, pet hair=asthma attack Melatonin Rash, Hives Wellbutrin [Bupropi* Intolerance Dry mouth--severe, intolerable ACTIVE PROBLEM LIST Hyperlipidemia With Target Ldl Less Than 100 - 03/16/2020 Restless Leg Syndrome - 03/16/2020 Atypical Chest Pain - 02/28/2018 Comment: Abnormal stress / SPECT per [facility] notes. Normal coronaries on heart catheterization [facility] 02/26/2018 Dr. Brooks Morbid Obesity ([facility]) - 09/27/2016 Umbilical Hernia Without Obstruction Or Gangrene - 09/22/2016 D (more content not included)... [facility] 05-04-2023 History of Present illness Narrative Images from the original note were not included. SUBJECTIVE Nanci Bob is a 42 year old female here today for a check up on her medical problems. Chief Complaint Patient presents with: Recheck HPI Nanci Bob is a 42 year old female established patient who presents today for a follow up on cellulitis. Issues with lesions to her abdomen and right lower leg. Saw Dr. Villarreal last week, started on Bactrim, applying medi-honey. She feels the areas are improving. Has been washing them daily. Redness better. Feeling better. She is a diabetic. Issues with swelling to the BLE. Also she is not sleeping well, has not been taking her Abilify lately. Follows with mental health provider at the counseling center. Her medications were reviewed today and her list is now up to date. Medications Current Outpatient Medications Medication Sig mupirocin (BACTROBAN) 2 % ointment Apply 1 application to affected area twice daily. Treat each sore for 10 days. ferrous sulfate 325 mg (65 mg iron) tablet Take 1 tablet by mouth every Sunday,Sunday,Sunday. sulfamethoxazole-trimethoprim (BACTRIM DS) 800-160 mg per tablet Take 2 tablets by mouth twice daily for 14 days. cyclobenzaprine (FLEXERIL) 10 mg tablet Take 1 tablet by mouth three times daily as needed for muscle spasm. May make drowsy metFORMIN (GLUCOPHAGE) 500 mg tablet Take 2 tablets by mouth twice daily with meals. Take one additional 500 mg tab with breakfast or lunch until BS less than 250 montelukast (SINGULAIR) 10 mg tablet Take 1 tablet by mouth daily at bedtime. naproxen (NAPROSYN) 500 mg tablet Take 1 tablet by mouth twice daily as needed (for pain/inflammation). Take with food. SUMAtriptan (IMITREX) 25 mg tablet Take 1 tablet by mouth at onset of headache and may repeat in 2 hrs if needed. glimepiride (AMARYL) 4 mg tablet Take 1 tablet by mouth daily with breakfast. Dose change, take one daily albuterol HFA (VENTOLIN HFA) 90 mcg/actuation inhaler Inhale 2 Puffs as instructed every 4 hours as needed. Albuterol Sulfate 1.25 mg/3 mL nebulizer solution Use 1 Ampule via nebulizer every 4 hours as needed for wheezing/shortness of breath. topiramate (TOPAMAX) 100 mg tablet Take 1 tablet by mouth twice daily. loratadine (CLARITIN) 10 mg tablet Take 1 tablet by mouth once daily. lansoprazole (PREVACID) 30 mg capsule Take 1 capsule by mouth daily before breakfast. pramipexole (MIRAPEX) 1.5 mg tablet Take 1 tablet by mouth daily at bedtime. diphenhydrAMINE (BENADRYL) 25 mg capsule Take 1 capsule by mouth every 6 hours as needed for Itching/Rash. urea (CARMOL) 40 % crea Apply 1 application to affected area twice daily. lamoTRIgine (LAMICTAL) 200 mg tablet Take 1 tablet by mouth once daily. (Patient taking differently: Take 150 mg by mouth twice daily.) traZODone (DESYREL) 100 mg tablet 300 mg. Take 1 to 2 tablets by mouth at bedtime as needed. LORazepam (ATIVAN) 1 mg tablet Take 1 tablet by mouth twice daily. As needed. citalopram (CELEXA) 40 mg tablet Take 40 mg by mouth once daily. [facility] furosemide (LASIX) 20 mg tablet Take 1-2 tablets by mouth once daily. ARIPiprazole (ABILIFY) 5 mg tablet Take 1 tablet by mouth once daily. honey (MEDIHONEY) 80 % gel Apply to affected area once daily. blood sugar diagnostic (TRUE METRIX GLUCOSE TEST STRIP) test strip Use as instructed CPAP Continue CPAP @ 15 cm of water with humidification. Mask (per patient preference) optional chin strap (if indicated) , filters, tubing, humidifier and lifetime supplies. G47.33 MARIA TERESA on CPAP Blood-Glucose Meter (TRUE METRIX GLUCOSE METER) Use DIRECTED. Dx:Diabetes 11.9 lancets (UNILET LANCET) 28 gauge Check sugars once daily and as needed for symptoms of high or low sugars Dx E11.9 Insulin: no blood sugar diagnostic (FREESTYLE LITE STRIPS) test strip Test blood sugar(s) 1 times daily and as needed. Dx: Type 2 DM - Controlled E11.9 Insulin: No FREESTYLE FREEDOM LITE monitoring kit USE DIRECTED CPAP Needs lifetime supplies (mask, hoses, headgear, filters, water chamber) G47.33 (already has CPAP) Nebulizer NEBULIZER and Supplies FOR HOME USE. DX: J45.40 No current facility-administered medications for this visit. ALLERGIES Allergen Reactions Penicillins Itching, Hives Environmental [Othe* dust, pet hair=asthma attack Melatonin Rash, Hives Wellbutrin [Bupropi* Intolerance Dry mouth--severe, intolerable ACTIVE PROBLEM LIST Hyperlipidemia With Target Ldl Less Than 100 - 03/16/2020 Restless Leg Syndrome - 03/16/2020 Atypical Chest Pain - 02/28/2018 Comment: Abnormal stress / SPECT per [facility] notes. Normal coronaries on heart catheterization [facility] 02/26/2018 Dr. Brooks Morbid Obesity ([facility]) - 09/27/2016 Umbilical Hernia Without Obstruction Or Gangrene - 09/22/2016 Diabetes Mellitus Type 2, Controlled, Without Complications ([facility]) - 12/30/2015 Lumbar Spondylosis - 02/17/2013 Ddd (Degenerative Disc Disease), Lumbar - 02/17/2013 Chronic Radicular Low Back Pain - 07/17/2012 Papanicolaou Smear of Cervix With Low Grade Squamous Intraepithelial Lesion ([facility]) - 12/26/2011 Moderate depressed bipolar I disorder ([facility]) - 12/26/2011 Migraine Without Aura - 03/29/2006 Asthma Allergic Rhinitis Social History Tobacco Use Smoking status: Every Day Packs/day: 1.00 Years: 8.00 Additional pack years: 0.00 Total pack years: 8.00 Types: Cigarettes Start date: 08/17/1998 Smokeless tobacco: Never Substance Use Topics Alcohol use: Never Drug use: No Comment: Past history of Marjiuana use Review of Systems Respiratory: Negative. Cardiovascular: Negative. OBJECTIVE BP 136/70 Pulse 110 Wt 353 lb (160.1kg) SpO2 98% LMP 03/31/2023 Physical Exam Vitals and nursing note reviewed. Constitutional: General: She is awake. She is not in acute distress. Appearance: Normal appearance. She is well-developed and well-groomed. She is not ill-appearing, toxic-appearing or diaphoretic. HENT: Head: Normocephalic. Right Ear: External ear normal. Left Ear: External ear normal. Nose: Nose normal. Eyes: General: Vision grossly intact. Conjunctiva/sclera: Conjunctivae normal. Pupils: Pupils are equal, round, and reactive to light. Neck: Vascular: No JVD. Trachea: Trachea normal. Cardiovascular: Rate and Rhythm: Normal rate and regular rhythm. Pulses: Normal pulses. Heart sounds: Normal heart sounds. No murmur heard. Pulmonary: Effort: Pulmonary effort is normal. No accessory muscle usage, prolonged expiration or respiratory distress. Breath sounds: Normal breath sounds. Musculoskeletal: Cervical back: Neck supple. Skin: General: Skin is warm and dry. Capillary Refill: Capillary refill takes less than 2 seconds. Comments: Scattered healed lesions across the abdomen, no erythema or open areas, no drainage. Neurological: General: No focal deficit present. Mental Status: She is alert and oriented to person, place, and time. Mental status is at baseline. Psychiatric: Attention and Perception: Attention and perception normal. Mood and Affect: Mood and affect normal. Speech: Speech normal. Behavior: Behavior normal. Behavior is cooperative. Thought Content: Thought content normal. Cognition and Memory: Cognition and memory normal. Judgment: Judgment normal. ASSESSMENT/PLAN: 1. Cellulitis of abdominal wall - ICD9: 682.2, ICD10: L03.311 (primary diagnosis) - Continue treatment with Trimethoprim-sulfamethozazole (Bactrim) Discussed care of the area and signs and symptoms to monitor for. 2. Cellulitis of right lower extremity - ICD9: 682.6, ICD10: L03.115 See #1 - FUROSEMIDE 20 MG TABLET 3. Bilateral leg edema - ICD9: 782.3, ICD10: R60.0 - FUROSEMIDE 20 MG TABLET 4. Moderate depressed bipolar I disorder (HCC) - ICD9: 296.52, ICD10: F31.32 Discussed need for compliance with Abilify, this likely will help sleep, if not follow up with mental health provider. - ARIPIPRAZOLE 5 MG TABLET Portions of this note have been entered by ancillary staff. I have reviewed and when necessary edited, so that they are an adequate record of my encounter with this patient Please note that parts of this document were created using voice recognition software and therefore may contain grammatical errors. Patient verbalizes understanding of instructions from today's visit and in agreement with treatment plan. Questions answered. Agrees to call the office if questions, concerns of issues with acute symptoms not improving or if they worsen. See diagnoses and orders for additional plan(s). Allergies and medications were reviewed, list was updated, and refills given if needed. Past medical, surgical, social, and family history reviewed and updated as appropriate. Encouraged proper diet & exercise as well as compliance with taking medications. Age-appropriate health preventative measures were discussed. Return in about 4 weeks (around 06/01/2023) for Follow up on chronic conditions and medications.. Zunilda Liriano APRN-NARENDRA documented in this encounter [facility] 05-01-2023 Miscellaneous Notes Faxed as requested. Patient aware. Davy York MA Patient calls to verify that [employer] form was received. Notified patient the form was received and would be reviewed by provider when able. Patient requests this be done in a hurry as she needs her machine for a nap since she was up all night. Vianney Elise RN Rec'd via fax. To pcp to review. Patient calls and states that her electric was just shut off. Patient states that she had just talked to [employer] and was told that if provider fills out forms regarding patient being on CPAP then they would be able to turn electric back on. Patient calling and asking for fax number, fax number provided. Please watch for forms from [employer]. Nuzhat Montes RN documented in this encounter [facility] 04-27-2023 Note HNO ID: [id number] Author: Rodri Villarreal MD Service: ? Author Type: Physician Type: Progress Notes Filed: 05/01/2023 1:26 PM Note Text: This note was created using Huitongdariter. Subjective Nanci Bob is a 42 year old female. Patient presents with: Established Patient SUBJECTIVE: Nanci Bob is a 42 year old year old lady here today for follow up appointment for review of medical conditions. Leg swelling and cellulitis symptoms . Right leg calf with redness and crust. Leg swelling Also cellulitis and sores on her abdomen. Hot compress causes lesions to open up and drain pus. Has been given antibiotic by [facility] but infection did not resolve. Swelling in abdominal pannus and right leg noted. Getting protein in every chance she gets. Eggs, milk, yogurt, pork and beef. Knows needs to cut back on pasta and rice but that is what family eats. Reviewed February labs. Noted had bleeding from hemorrhoid that caused bleeding for 2 to 3 weeks before the February labs. No more bleeding now. Preventing constipation. Taking senna as needed, and 2 to 3 gets bowels going. Bactrim had helped but did not last long enough for lesions to heal. Reinaldo wrap given Lasix ran out. Did not keep swelling down at 20 mg once daily dose. Sugars better in 100 to 200 range fasting. Did have 400 about 5 months ago. PAST MEDICAL HISTORY Diagnosis Date Abnormal glandular Papanicolaou smear of cervix 2003 Abn. Pap smear (cervix) Allergic rhinitis, cause unspecified Bipolar I disorder, most recent episode (or current) depressed, moderate 12/26/2011 CPAP (continuous positive airway pressure) dependence Depressive disorder, not elsewhere classified Hip tendonitis 12/15/2013 Left knee pain 12/11/2016 Migraine without aura, without mention of intractable migraine without mention of status migrainosus 03/29/2006 Mild dysplasia of cervix Obesity Osteoarthritis of left knee 12/11/2016 Personal history of pre-term labor 11/07/2006 Right hip pain 12/15/2013 Unspecified asthma(493.90) Current Outpatient Medications Medication Sig cyclobenzaprine (FLEXERIL) 10 mg tablet Take 1 tablet by mouth three times daily as needed for muscle spasm. May make drowsy furosemide (LASIX) 20 mg tablet Take 1 tablet by mouth once daily. metFORMIN (GLUCOPHAGE) 500 mg tablet Take 2 tablets by mouth twice daily with meals. Take one additional 500 mg tab with breakfast or lunch until BS less than 250 montelukast (SINGULAIR) 10 mg tablet Take 1 tablet by mouth daily at bedtime. naproxen (NAPROSYN) 500 mg tablet Take 1 tablet by mouth twice daily as needed (for pain/inflammation). Take with food. SUMAtriptan (IMITREX) 25 mg tablet Take 1 tablet by mouth at onset of headache and may repeat in 2 hrs if needed. glimepiride (AMARYL) 4 mg tablet Take 1 tablet by mouth daily with breakfast. Dose change, take one daily albuterol HFA (VENTOLIN HFA) 90 mcg/actuation inhaler Inhale 2 Puffs as instructed every 4 hours as needed. Albuterol Sulfate 1.25 mg/3 mL nebulizer solution Use 1 Ampule via nebulizer every 4 hours as needed for wheezing/shortness of breath. blood sugar diagnostic (TRUE METRIX GLUCOSE TEST STRIP) test strip Use as instructed CPAP Continue CPAP @ 15 cm of water with humidification. Mask (per patient preference) optional chin strap (if indicated) , filters, tubing, humidifier and lifetime supplies. G47.33 MARIA TERESA on CPAP Blood-Glucose Meter (TRUE METRIX GLUCOSE METER) Use DIRECTED. Dx:Diabetes 11.9 lancets (UNILET LANCET) 28 gauge Check sugars once daily and as needed for symptoms of high or low sugars Dx E11.9 Insulin: no topiramate (TOPAMAX) 100 mg tablet Take 1 tablet by mouth twice daily. loratadine (CLARITIN) 10 mg tablet Take 1 tablet by mouth once daily. lansoprazole (PREVACID) 30 mg capsule Take 1 capsule by mouth daily before breakfast. pramipexole (MIRAPEX) 1.5 mg tablet Take 1 tablet by mouth daily at bedtime. blood sugar diagnostic (FREESTYLE LITE STRIPS) test strip Test blood sugar(s) 1 times daily and as needed. Dx: Type 2 DM - Controlled E11.9 Insulin: No diphenhydrAMINE (BENADRYL) 25 mg capsule Take 1 capsule by mouth every 6 hours as needed for Itching/Rash. FREESTYLE FREEDOM LITE monitoring kit USE DIRECTED CPAP Needs lifetime supplies (mask, hoses, headgear, filters, water chamber) G47.33 (already has CPAP) urea (CARMOL) 40 % crea Apply 1 application to affected area twice daily. lamoTRIgine (LAMICTAL) 200 mg tablet Take 1 tablet by mouth once daily. (Patient taking differently: Take 150 mg by mouth twice daily.) traZODone (DESYREL) 100 mg tablet 300 mg. Take 1 to 2 tablets by mouth at bedtime as needed. LORazepam (ATIVAN) 1 mg tablet Take 1 tablet by mouth twice daily. As needed. Nebulizer NEBULIZER and Supplies FOR HOME USE. DX: J45.40 citalopram (CELEXA) 40 mg tablet Take 40 mg by mouth once daily. [facility] predniSON (more content not included)... [facility] 04-27-2023 Instructions Rodri Villarreal MD - 04/27/2023 6:25 PM EDT Take two 20 mg Lasix daily for 3 to 7 days then try to go down to 1 pill daily if swelling down adequately. If swelling not adequately resolved, may stay on 2 pills. If 2 pills not adequate, may need to increase to 3 pills. If swelling gets worse later in the morning or early afternoon, might need to taking Lasix twice daily--6 hours between doses. documented in this encounter [facility] 04-27-2023 History of Present illness Narrative This note was created using DigitalSciroccoter. Subjective Nanci Bob is a 42 year old female. Patient presents with: Established Patient SUBJECTIVE: Nanci Bob is a 42 year old year old lady here today for follow up appointment for review of medical conditions. Leg swelling and cellulitis symptoms . Right leg calf with redness and crust. Leg swelling Also cellulitis and sores on her abdomen. Hot compress causes lesions to open up and drain pus. Has been given antibiotic by [facility] but infection did not resolve. Swelling in abdominal pannus and right leg noted. Getting protein in every chance she gets. Eggs, milk, yogurt, pork and beef. Knows needs to cut back on pasta and rice but that is what family eats. Reviewed February labs. Noted had bleeding from hemorrhoid that caused bleeding for 2 to 3 weeks before the February labs. No more bleeding now. Preventing constipation. Taking senna as needed, and 2 to 3 gets bowels going. Bactrim had helped but did not last long enough for lesions to heal. Reinaldo wrap given Lasix ran out. Did not keep swelling down at 20 mg once daily dose. Sugars better in 100 to 200 range fasting. Did have 400 about 5 months ago. PAST MEDICAL HISTORY Diagnosis Date Abnormal glandular Papanicolaou smear of cervix 2003 Abn. Pap smear (cervix) Allergic rhinitis, cause unspecified Bipolar I disorder, most recent episode (or current) depressed, moderate 12/26/2011 CPAP (continuous positive airway pressure) dependence Depressive disorder, not elsewhere classified Hip tendonitis 12/15/2013 Left knee pain 12/11/2016 Migraine without aura, without mention of intractable migraine without mention of status migrainosus 03/29/2006 Mild dysplasia of cervix Obesity Osteoarthritis of left knee 12/11/2016 Personal history of pre-term labor 11/07/2006 Right hip pain 12/15/2013 Unspecified asthma(493.90) Current Outpatient Medications Medication Sig cyclobenzaprine (FLEXERIL) 10 mg tablet Take 1 tablet by mouth three times daily as needed for muscle spasm. May make drowsy furosemide (LASIX) 20 mg tablet Take 1 tablet by mouth once daily. metFORMIN (GLUCOPHAGE) 500 mg tablet Take 2 tablets by mouth twice daily with meals. Take one additional 500 mg tab with breakfast or lunch until BS less than 250 montelukast (SINGULAIR) 10 mg tablet Take 1 tablet by mouth daily at bedtime. naproxen (NAPROSYN) 500 mg tablet Take 1 tablet by mouth twice daily as needed (for pain/inflammation). Take with food. SUMAtriptan (IMITREX) 25 mg tablet Take 1 tablet by mouth at onset of headache and may repeat in 2 hrs if needed. glimepiride (AMARYL) 4 mg tablet Take 1 tablet by mouth daily with breakfast. Dose change, take one daily albuterol HFA (VENTOLIN HFA) 90 mcg/actuation inhaler Inhale 2 Puffs as instructed every 4 hours as needed. Albuterol Sulfate 1.25 mg/3 mL nebulizer solution Use 1 Ampule via nebulizer every 4 hours as needed for wheezing/shortness of breath. blood sugar diagnostic (TRUE METRIX GLUCOSE TEST STRIP) test strip Use as instructed CPAP Continue CPAP @ 15 cm of water with humidification. Mask (per patient preference) optional chin strap (if indicated) , filters, tubing, humidifier and lifetime supplies. G47.33 MARIA TERESA on CPAP Blood-Glucose Meter (TRUE METRIX GLUCOSE METER) Use DIRECTED. Dx:Diabetes 11.9 lancets (UNILET LANCET) 28 gauge Check sugars once daily and as needed for symptoms of high or low sugars Dx E11.9 Insulin: no topiramate (TOPAMAX) 100 mg tablet Take 1 tablet by mouth twice daily. loratadine (CLARITIN) 10 mg tablet Take 1 tablet by mouth once daily. lansoprazole (PREVACID) 30 mg capsule Take 1 capsule by mouth daily before breakfast. pramipexole (MIRAPEX) 1.5 mg tablet Take 1 tablet by mouth daily at bedtime. blood sugar diagnostic (FREESTYLE LITE STRIPS) test strip Test blood sugar(s) 1 times daily and as needed. Dx: Type 2 DM - Controlled E11.9 Insulin: No diphenhydrAMINE (BENADRYL) 25 mg capsule Take 1 capsule by mouth every 6 hours as needed for Itching/Rash. FREESTYLE FREEDOM LITE monitoring kit USE DIRECTED CPAP Needs lifetime supplies (mask, hoses, headgear, filters, water chamber) G47.33 (already has CPAP) urea (CARMOL) 40 % crea Apply 1 application to affected area twice daily. lamoTRIgine (LAMICTAL) 200 mg tablet Take 1 tablet by mouth once daily. (Patient taking differently: Take 150 mg by mouth twice daily.) traZODone (DESYREL) 100 mg tablet 300 mg. Take 1 to 2 tablets by mouth at bedtime as needed. LORazepam (ATIVAN) 1 mg tablet Take 1 tablet by mouth twice daily. As needed. Nebulizer NEBULIZER and Supplies FOR HOME USE. DX: J45.40 citalopram (CELEXA) 40 mg tablet Take 40 mg by mouth once daily. [facility] predniSONE (DELTASONE) 10 mg tablet Take 2 tabs po BID for 2 days then 1 tab po BID for 2 days then 1/2 tab po BID for 2 days then 1/2 tab daily for 2 days then stop (Patient not taking: Reported on 04/27/2023) ARIPiprazole (ABILIFY) 2 mg tablet Take 1 tablet by mouth once daily. (Patient not taking: Reported on 04/27/2023) No current facility-administered medications for this visit. Review of Systems Objective BP 119/74 Pulse 110 Temp 36.7 C (98.1 F) Resp 18 Wt (!) 166 kg (366 lb) LMP 03/31/2023 (Approximate) SpO2 98% BMI 63.82 kg/m Physical Exam Component Latest Ref Rng & Units 02/02/2021 2022 03/06/2023 WBC 3.70 - 11.00 k/uL 5.70 3.96 3.88 RBC 3.90 - 5.20 m/uL 5.06 4.07 4.51 Hemoglobin 11.5 - 15.5 g/dL 11.5 7.6 (L) 9.4 (L) Hematocrit 36.0 - 46.0 % 38.7 29.6 (L) 33.8 (L) MCV 80.0 - 100.0 fL 76.5 (L) 72.7 (L) 74.9 (L) MCH 26.0 - 34.0 pg 22.7 (L) 18.7 (L) 20.8 (L) MCHC 30.5 - 36.0 g/dL 29.7 (L) 25.7 (L) 27.8 (L) RDW-CV 11.5 - 15.0 % 19.3 (H) 22.9 (H) 22.9 (H) Platelet Count 150 - 400 k/uL 118 (L) 92 (L) 101 (L) MPV 9.0 - 12.7 fL 10.2 9.9 Neut% % 62.3 66.2 Abs Neut (ANC) 1.45 - 7.50 k/uL 3.55 2.57 Lymph% % 28.6 25.8 Abs Lymph 1.00 - 4.00 k/uL 1.63 1.00 Butts% % 6.7 5.9 Abs Butts <0.87 k/uL 0.38 0.23 Eosin% % 1.9 1.3 Abs Eosin <0.46 k/uL 0.11 0.05 Baso% % 0.5 0.5 Abs Baso <0.11 k/uL 0.03 <0.03 Immature Gran % % 0.3 IMMATURE GRANS (ABS) <0.10 k/uL <0.03 NRBC /100 WBC 0.0 Absolute nRBC <0.01 k/uL <0.01 <0.01 <0.01 DTYPE Auto Nucleated Reds 0 /100 WBC 0.0 Diff Type Auto Diff Protein, Total 6.3 - 8.0 g/dL 7.3 7.9 7.6 Albumin 3.9 - 4.9 g/dL 3.9 3.7 (L) 3.6 (L) Calcium 8.5 - 10.2 mg/dL 8.9 9.0 9.2 Bilirubin, Total 0.2 - 1.3 mg/dL 0.5 0.5 0.4 Alkaline Phosphatase 34 - 123 U/L 123 127 (H) 120 AST 13 - 35 U/L 71 (H) 36 (H) 39 (H) Glucose 74 - 99 mg/dL 190 (H) 120 (H) 221 (H) BUN 7 - 21 mg/dL 7 11 9 Creatinine 0.58 - 0.96 mg/dL 0.57 (L) 0.57 (L) 0.61 Sodium 136 - 144 mmol/L 136 137 139 Potassium 3.7 - 5.1 mmol/L 3.7 4.2 4.3 Chloride 97 - 105 mmol/L 101 104 107 (H) CO2 22 - 30 mmol/L 28 23 21 (L) Anion Gap 9 - 18 mmol/L 7 (L) 10 11 ALT 7 - 38 U/L 62 (H) 20 26 eGFR- >60 eGFR-All Other Races . >60 eGFR >=60 mL/min/1.73m 117 115 Cholesterol, Total <200 mg/dL 142 Triglyceride <150 mg/dL 85 HDL Cholesterol >39 mg/dL 40 Non HDL Cholesterol <130 mg/dL 102 Fasting Time hrs 14 VLDL Cholesterol <30 mg/dL 17 TC:HDL Ratio <5.10 3.55 LDL Cholesterol <100 mg/dL 85 LDL:HDL Ratio <2.54 2.13 Total Cholesterol, Nonfasting <200 mg/dL 156 161 Triglycerides, Nonfasting <150 mg/dL 94 106 HDL Cholesterol, Nonfasting >39 mg/dL 40 38 (L) LDL Cholesterol, Nonfasting <100 mg/dL 97 102 (H) Non HDL Cholesterol, Nonfasting <130 mg/dL 116 123 VLDL Cholesterol, Nonfasting <30 mg/dL 19 21 Total Chol/HDL Ratio, Nonfasting <5.10 mg/dL 3.90 4.24 LDL/HDL Ratio, Nonfasting <2.54 mg/dL 2.43 2.68 (H) Iron 41 - 186 ug/dL 27 (L) 17 (L) 18 (L) TIBC 232 - 386 ug/dL 383 401 (H) 341 Transferrin Saturation 15.0 - 57.0 % 7 (L) 4.2 (L) 5.3 (L) Creatinine, Ur Random (UCRR) 20.0 - 300.0 mg/dL 95.7 Albumin, Urine Random mg/L <12.0 Albumin/Creat Ratio <30 mg/g <13 Hemoglobin A1C 4.3 - 5.6 % 11.2 (H) 7.9 (H) 9.0 (H) Estimated Average Glucose mg/dL 275 180 212 Ferritin 14.7 - 205.1 ng/mL 13.3 (L) 8.7 (L) 10.3 (L) Prolactin 4.5 - 26.8 ng/mL 11.3 Vitamin D 25 Hydroxy 31.0 - 80.0 ng/mL 14.1 (L) Magnesium 1.7 - 2.3 mg/dL 1.8 TSH 0.270 - 4.200 mIU/L 1.300 Assessment and Plan Encounter Diagnosis ICD-10-CM 1. Iron deficiency anemia, unspecified iron deficiency anemia type D50.9 CBC 2. Cellulitis of right lower extremity L03.115 furosemide (LASIX) 20 mg tablet Scattered sores on legs and abdomen, with redness on right calf and abdomen 3. Cellulitis of abdominal wall L03.311 4. Bilateral leg edema R60.0 furosemide (LASIX) 20 mg tablet 5. Vitamin D deficiency E55.9 VITAMIN D 25 HYDROXY 6. MARIA TERESA on CPAP G47.33 7. Class 3 severe obesity due to excess calories with serious comorbidity and body mass index (BMI) of 60.0 to 69.9 in adult ([facility]) E66.01 Z68.44 8. Encounter for long-term current use of medication Z79.899 COMP METABOLIC PANEL Above issues addressed with patient. Patient involved in shared decision making for management of medical issues. History and medications reviewed. Epic updated as needed Refills and/or prescriptions taken care of and meds adjusted as indicated after reviewed history, exam and labs. Health Maintenance reviewed. Updated record and/or ordered tests as recorded. Encouraged on efforts at healthy diet and regular exercise and adequate sleep. Needs to keep working on diet and exercise with lifestyle changes for effective weight loss as well as prevention of DM, and control of BP and lipids. Patient states uses CPAP. Noted issues with electric company and needed form completed to get electricity turned back on. Form completed 05/01/23 to fax back. Work on fluid retention. Further evaluation and treatment as indicated. I spent a total of 41 minutes on the date of the service which included [id number] patient care, completing clinical documentation, performing a medically appropriate examination, counseling and educating the patient/family/caregiver, ordering medications, tests, or procedures, independently interpreting results (not separately reported), and communicating results to the patient/family/caregiver. Rodri Villarreal MD documented in this encounter [facility] 04-23-2023 Miscellaneous Notes Patient has been identified by name and date of : Yes, Provider Date Time Pharmacy phones for refill(s): Requested Prescriptions Pending Prescriptions Disp Refills cyclobenzaprine (FLEXERIL) 10 mg tablet 30 tablet 2 Sig: Take 1 tablet by mouth three times daily as needed for muscle spasm. May make drowsy Date of last office visit with pcp: Date of last office visit in primary care: 03/06/23 Last 2 Encounter Wt Readings: Date: Wt: 03/06/2023 168.7 kg (372 lb) 02/19/2023 171.9 kg (379 lb) Previous labs/tests for medication: Not applicable Please advise. Thank you. Jessica Helm RN documented in this encounter [facility] 03-06-2023 Note HNO ID: [id number] Author: Johnson Rm APRN.BAND ATTACHER Service: ? Author Type: Nurse Specialist Type: Progress Notes Filed: 03/06/2023 2:39 PM Note Text: SUBJECTIVE: HEPATITIS B(1 of 3 - 3-dose series) Never done COVID-19 VACCINE(1) Never done PNEUMOCOCCAL(2 - PCV) due on 01/27/2017 DILATED RETINAL EXAM due on 12/02/2020 DIABETIC FOOT EXAM due on 03/16/2021 MAMMOGRAM Never done URINE ALBUMIN:CREATININE RATIO due on 01/03/2022 DEPRESSION ASSESSMENT due on 09/17/2022 HBA1C due on 03/01/2023 HPI Nanci Bob is a 42 year old female. PMH significant for ACTIVE PROBLEM LIST Asthma Allergic Rhinitis Migraine Without Aura Papanicolaou Smear of Cervix With Low Grade Squamous Intraepithelial Lesion (Lgsil) Moderate depressed bipolar I disorder (HCC) Chronic Radicular Low Back Pain Lumbar Spondylosis Ddd (Degenerative Disc Disease), Lumbar Diabetes Mellitus Type 2, Controlled, Without Complications (Hcc) Umbilical Hernia Without Obstruction Or Gangrene Morbid Obesity (Hcc) Atypical Chest Pain Hyperlipidemia With Target Ldl Less Than 100 Restless Leg Syndrome She was seen February 19, 2023 for cellulitis right lower extremity. Ultrasound completed and negative for DVT. She was treated with antibiotic and prednisone at her last visit. Today reports wounds are about the same. Does have an open wound on the right posterior calf. Has been washing with antibacterial soap and water. Continues with panniculitis unchanged as well. Took antibiotic as ordered. She reports history of hemorrhoids and blood in the toilet the last 3 days. Smoking 1/2 pack daily. Review of Systems Constitutional: Negative. Respiratory: Negative. Cardiovascular: Negative. Endocrine: Negative. Musculoskeletal: Positive for back pain. Objective BP 124/78 Pulse 104 Resp 20 Wt (!) 168.7 kg (372 lb) LMP 01/24/2023 (Approximate) BMI 64.86 kg/m? Physical Exam Vitals and nursing note reviewed. Constitutional: Appearance: Normal appearance. HENT: Head: Normocephalic and atraumatic. Eyes: Conjunctiva/sclera: Conjunctivae normal. Cardiovascular: Rate and Rhythm: Normal rate and regular rhythm. Heart sounds: Normal heart sounds. Pulmonary: Effort: Pulmonary effort is normal. Breath sounds: Normal breath sounds. Musculoskeletal: Lumbar back: Tenderness present. Decreased range of motion. Skin: General: Skin is warm and dry. Comments: Large pannus with several partial thickness open areas red wound base, ~1/2 diameter, open wound posterior calf, pink wound base, scant serous drainage, which are healing over. Mild of edema over the lower end of pannus erythema and bilateral lower extremities from calf down, no warmth, no induration Neurological: Mental Status: She is alert. ALLERGIES Allergen Reactions Penicillins Itching, Hives Environmental [Othe* dust, pet hair=asthma attack Melatonin Rash, Hives Wellbutrin [Bupropi* Intolerance Dry mouth--severe, intolerable Medications cyclobenzaprine (FLEXERIL) 10 mg tablet Take 1 tablet by mouth three times daily as needed for muscle spasm. May make drowsy furosemide (LASIX) 20 mg tablet Take 1 tablet by mouth once daily. predniSONE (DELTASONE) 10 mg tablet Take 2 tabs po BID for 2 days then 1 tab po BID for 2 days then 1/2 tab po BID for 2 days then 1/2 tab daily for 2 days then stop metFORMIN (GLUCOPHAGE) 500 mg tablet Take 2 tablets by mouth twice daily with meals. Take one additional 500 mg tab with breakfast or lunch until BS less than 250 montelukast (SINGULAIR) 10 mg tablet Take 1 tablet by mouth daily at bedtime. naproxen (NAPROSYN) 500 mg tablet Take 1 tablet by mouth twice daily as needed (for pain/inflammation). Take with food. SUMAtriptan (IMITREX) 25 mg tablet Take 1 tablet by mouth at onset of headache and may repeat in 2 hrs if needed. glimepiride (AMARYL) 4 mg tablet Take 1 tablet by mouth daily with breakfast. Dose change, take one daily albuterol HFA (VENTOLIN HFA) 90 mcg/actuation inhaler Inhale 2 Puffs as instructed every 4 hours as needed. Albuterol Sulfate 1.25 mg/3 mL nebulizer solution Use 1 Ampule via nebulizer every 4 hours as needed for wheezing/shortness of breath. blood sugar diagnostic (TRUE METRIX GLUCOSE TEST STRIP) test strip Use as instructed CPAP Continue CPAP @ 15 cm of water with humidification. Mask (per patient preference) optional chin strap (if indicated) , filters, tubing, humidifier and lifetime supplies. G47.33 MARIA TERESA on CPAP Blood-Glucose Meter (TRUE METRIX GLUCOSE METER) Use DIRECTED. Dx:Diabetes 11.9 lancets (UNILET LANCET) 28 gauge Check sugars once daily and as needed for symptoms of high or low sugars Dx E11.9 Insulin: no topiramate (TOPAMAX) 100 mg tablet Take 1 tablet by mouth twice daily. loratadine (CLARITIN) 10 mg tablet Take 1 tablet by mouth once daily. lansoprazole (PREVACID) 30 mg capsule Take 1 capsule by mouth daily before (more content not included)... [facility] 03-06-2023 History of Present illness Narrative SUBJECTIVE: HEPATITIS B(1 of 3 - 3-dose series) Never done COVID-19 VACCINE(1) Never done PNEUMOCOCCAL(2 - PCV) due on 01/27/2017 DILATED RETINAL EXAM due on 12/02/2020 DIABETIC FOOT EXAM due on 03/16/2021 MAMMOGRAM Never done URINE ALBUMIN:CREATININE RATIO due on 01/03/2022 DEPRESSION ASSESSMENT due on 09/17/2022 HBA1C due on 03/01/2023 HPI Nanci Bob is a 42 year old female. PMH significant for ACTIVE PROBLEM LIST Asthma Allergic Rhinitis Migraine Without Aura Papanicolaou Smear of Cervix With Low Grade Squamous Intraepithelial Lesion (Lgsil) Moderate depressed bipolar I disorder (HCC) Chronic Radicular Low Back Pain Lumbar Spondylosis Ddd (Degenerative Disc Disease), Lumbar Diabetes Mellitus Type 2, Controlled, Without Complications (Hcc) Umbilical Hernia Without Obstruction Or Gangrene Morbid Obesity (Hcc) Atypical Chest Pain Hyperlipidemia With Target Ldl Less Than 100 Restless Leg Syndrome She was seen February 19, 2023 for cellulitis right lower extremity. Ultrasound completed and negative for DVT. She was treated with antibiotic and prednisone at her last visit. Today reports wounds are about the same. Does have an open wound on the right posterior calf. Has been washing with antibacterial soap and water. Continues with panniculitis unchanged as well. Took antibiotic as ordered. She reports history of hemorrhoids and blood in the toilet the last 3 days. Smoking 1/2 pack daily. Review of Systems Constitutional: Negative. Respiratory: Negative. Cardiovascular: Negative. Endocrine: Negative. Musculoskeletal: Positive for back pain. Objective BP 124/78 Pulse 104 Resp 20 Wt (!) 168.7 kg (372 lb) LMP 01/24/2023 (Approximate) BMI 64.86 kg/m Physical Exam Vitals and nursing note reviewed. Constitutional: Appearance: Normal appearance. HENT: Head: Normocephalic and atraumatic. Eyes: Conjunctiva/sclera: Conjunctivae normal. Cardiovascular: Rate and Rhythm: Normal rate and regular rhythm. Heart sounds: Normal heart sounds. Pulmonary: Effort: Pulmonary effort is normal. Breath sounds: Normal breath sounds. Musculoskeletal: Lumbar back: Tenderness present. Decreased range of motion. Skin: General: Skin is warm and dry. Comments: Large pannus with several partial thickness open areas red wound base, ~1/2 diameter, open wound posterior calf, pink wound base, scant serous drainage, which are healing over. Mild of edema over the lower end of pannus erythema and bilateral lower extremities from calf down, no warmth, no induration Neurological: Mental Status: She is alert. ALLERGIES Allergen Reactions Penicillins Itching, Hives Environmental [Othe* dust, pet hair=asthma attack Melatonin Rash, Hives Wellbutrin [Bupropi* Intolerance Dry mouth--severe, intolerable Medications cyclobenzaprine (FLEXERIL) 10 mg tablet Take 1 tablet by mouth three times daily as needed for muscle spasm. May make drowsy furosemide (LASIX) 20 mg tablet Take 1 tablet by mouth once daily. predniSONE (DELTASONE) 10 mg tablet Take 2 tabs po BID for 2 days then 1 tab po BID for 2 days then 1/2 tab po BID for 2 days then 1/2 tab daily for 2 days then stop metFORMIN (GLUCOPHAGE) 500 mg tablet Take 2 tablets by mouth twice daily with meals. Take one additional 500 mg tab with breakfast or lunch until BS less than 250 montelukast (SINGULAIR) 10 mg tablet Take 1 tablet by mouth daily at bedtime. naproxen (NAPROSYN) 500 mg tablet Take 1 tablet by mouth twice daily as needed (for pain/inflammation). Take with food. SUMAtriptan (IMITREX) 25 mg tablet Take 1 tablet by mouth at onset of headache and may repeat in 2 hrs if needed. glimepiride (AMARYL) 4 mg tablet Take 1 tablet by mouth daily with breakfast. Dose change, take one daily albuterol HFA (VENTOLIN HFA) 90 mcg/actuation inhaler Inhale 2 Puffs as instructed every 4 hours as needed. Albuterol Sulfate 1.25 mg/3 mL nebulizer solution Use 1 Ampule via nebulizer every 4 hours as needed for wheezing/shortness of breath. blood sugar diagnostic (TRUE METRIX GLUCOSE TEST STRIP) test strip Use as instructed CPAP Continue CPAP @ 15 cm of water with humidification. Mask (per patient preference) optional chin strap (if indicated) , filters, tubing, humidifier and lifetime supplies. G47.33 MARIA TERESA on CPAP Blood-Glucose Meter (TRUE METRIX GLUCOSE METER) Use DIRECTED. Dx:Diabetes 11.9 lancets (UNILET LANCET) 28 gauge Check sugars once daily and as needed for symptoms of high or low sugars Dx E11.9 Insulin: no topiramate (TOPAMAX) 100 mg tablet Take 1 tablet by mouth twice daily. loratadine (CLARITIN) 10 mg tablet Take 1 tablet by mouth once daily. lansoprazole (PREVACID) 30 mg capsule Take 1 capsule by mouth daily before breakfast. pramipexole (MIRAPEX) 1.5 mg tablet Take 1 tablet by mouth daily at bedtime. blood sugar diagnostic (FREESTYLE LITE STRIPS) test strip Test blood sugar(s) 1 times daily and as needed. Dx: Type 2 DM - Controlled E11.9 Insulin: No ARIPiprazole (ABILIFY) 2 mg tablet Take 1 tablet by mouth once daily. (Patient taking differently: Take 5 mg by mouth once daily.) diphenhydrAMINE (BENADRYL) 25 mg capsule Take 1 capsule by mouth every 6 hours as needed for Itching/Rash. FREESTYLE FREEDOM LITE monitoring kit USE DIRECTED CPAP Needs lifetime supplies (mask, hoses, headgear, filters, water chamber) G47.33 (already has CPAP) urea (CARMOL) 40 % crea Apply 1 application to affected area twice daily. lamoTRIgine (LAMICTAL) 200 mg tablet Take 1 tablet by mouth once daily. (Patient taking differently: Take 150 mg by mouth twice daily.) traZODone (DESYREL) 100 mg tablet 300 mg. Take 1 to 2 tablets by mouth at bedtime as needed. LORazepam (ATIVAN) 1 mg tablet Take 1 tablet by mouth twice daily. As needed. Nebulizer NEBULIZER and Supplies FOR HOME USE. DX: J45.40 citalopram (CELEXA) 40 mg tablet Take 40 mg by mouth once daily. [facility] PAST MEDICAL HISTORY Diagnosis Date Abnormal glandular Papanicolaou smear of cervix 2003 Abn. Pap smear (cervix) Allergic rhinitis, cause unspecified Bipolar I disorder, most recent episode (or current) depressed, moderate 12/26/2011 CPAP (continuous positive airway pressure) dependence Depressive disorder, not elsewhere classified Hip tendonitis 12/15/2013 Left knee pain 12/11/2016 Migraine without aura, without mention of intractable migraine without mention of status migrainosus 03/29/2006 Mild dysplasia of cervix Obesity Osteoarthritis of left knee 12/11/2016 Personal history of pre-term labor 11/07/2006 Right hip pain 12/15/2013 Unspecified asthma(493.90) Social History Tobacco Use Smoking status: Every Day Packs/day: 1.00 Years: 8.00 Pack years: 8.00 Types: Cigarettes Start date: 08/17/1998 Smokeless tobacco: Never Substance Use Topics Alcohol use: Yes Comment: Seldom Drug use: No Comment: Past history of [place] use ASSESSMENT/PLAN: 1. Encounter for immunization - ICD9: V03.89, ICD10: Z23 2. Screening for diabetic retinopathy - ICD9: V80.2, ICD10: Z13.5 3. Controlled type 2 diabetes mellitus without complication, without long-term current use of insulin (HCC) - ICD9: 250.00, ICD10: E11.9 - ALBUMIN/CREAT RATIO RND UR - COMP METABOLIC PANEL - HGB A1C - LIPID PANEL, NONFASTING 4. Hyperlipidemia with target LDL less than 100 - ICD9: 272.4, ICD10: E78.5 - LIPID PANEL, NONFASTING 5. Morbid obesity (HCC) - ICD9: 278.01, ICD10: E66.01 - CBC + DIFF - TSH BLD 6. Restless leg syndrome - ICD9: 333.94, ICD10: G25.81 - MAGNESIUM BLD 7. Intermittent asthma, unspecified asthma severity, unspecified whether complicated - ICD9: 493.90, ICD10: J45.20 9. Iron deficiency anemia secondary to inadequate dietary iron intake - ICD9: 280.1, ICD10: D50.8 - IRON + TIBC - FERRITIN BLD 10. Vitamin D deficiency - ICD9: 268.9, ICD10: E55.9 - VITAMIN D 25 HYDROXY 11. Bilateral leg edema - ICD9: 782.3, ICD10: R60.0 12. Iron deficiency - ICD9: 280.9, ICD10: E61.1 - IRON + TIBC - FERRITIN BLD - CBC + DIFF 13. Panniculitis - ICD9: 729.30, ICD10: M79.3 14. Rash and nonspecific skin eruption - ICD9: 782.1, ICD10: R21 (primary diagnosis) Panniculitis and right lower extremity cellulitis persisting, will switch to Bactroban and Bactrim. Lab work today 1 week recheck Johnson Rm APRN.CNS Medical Decision Making: Problems: Low: Acute, uncomplicated illness or injury Moderate: 2+ stable chronic illnesses Data: Unique test(s) ordered: 3+ Risk: Moderate: Drug management Medical Decision Making Level: 4 - Moderate documented in this encounter [facility] 02-22-2023 Note HNO ID: [id number] Author: Angelina Chavez RDMS Service: ? Author Type: Ap Operator Type: Progress Notes Filed: 02/22/2023 2:35 PM Note Text: Radiology Service Progress Note PATIENT NAME: Nanci Bob DATE OF SERVICE: February 22, 2023 TIME: 2:35 PM PATIENT IDENTITY VERIFICATION COMPLETED USING TWO (2) IDENTIFIERS: Name and Date of confirmed by patient verbally. FALL SCREENING: Has the patient had 2 falls in the last year or 1 fall with injury or currently using an Ambulatory Assistive Device (Walker, Cane, Wheelchair, Crutches, etc.)? Yes, Patient High Risk for Falls What interventions were put in place to prevent falls during this visit? Offered Assistance with Transfers/Clothing and Increased Observations by Caregivers PATIENT GENDER DATA: Female. status: : No status: NO. PATIENT RELEVANT IMPLANT DATA REVIEWED: Not Applicable RADIOLOGY DEPARTMENT: Ultrasound PERIPHERAL IV DATA: Not applicable SIGNED BY: Angelina Chavez RDMS February 22, 2023 2:35 PM [facility] 02-22-2023 History of Present illness Narrative Radiology Service Progress Note PATIENT NAME: Nanci Bob DATE OF SERVICE: February 22, 2023 TIME: 2:35 PM PATIENT IDENTITY VERIFICATION COMPLETED USING TWO (2) IDENTIFIERS: Name and Date of confirmed by patient verbally. FALL SCREENING: Has the patient had 2 falls in the last year or 1 fall with injury or currently using an Ambulatory Assistive Device (Walker, Cane, Wheelchair, Crutches, etc.)? Yes, Patient High Risk for Falls What interventions were put in place to prevent falls during this visit? Offered Assistance with Transfers/Clothing and Increased Observations by Caregivers PATIENT GENDER DATA: Female. status: : No status: NO. PATIENT RELEVANT IMPLANT DATA REVIEWED: Not Applicable RADIOLOGY DEPARTMENT: Ultrasound PERIPHERAL IV DATA: Not applicable SIGNED BY: Angelina Chavez RDMS February 22, 2023 2:35 PM documented in this encounter [facility] 02-19-2023 Note HNO ID: [id number] Author: Zunilda Liriano APRN.WATCHGUARD Service: ? Author Type: Nurse Practitioner Type: Progress Notes Filed: 02/19/2023 4:35 PM Note Text: SUBJECTIVE Nanci Bob is a 42 year old female here today for acute concerns. Chief Complaint Patient presents with: Edema: was seen in ER and told has cellulitis but never treated her. Has areas on abdomen and lower legs Back Pain: lower back pain that radiates down into left leg for about 2 days HPI Nanci Bob is a 42 year old female established patient. Presents today for concerns of a cellulitis to her abdomen and right leg. Started with the abdomen. Was seen in ER in November for this. This is her first issues with cellulitis but it has been on going for several months. She is a diabetic but does not inject insulin. Abdomen has an area of redness, warm to touch. No drainage or open area. Right leg started recently with redness, some increased swelling. No injury to the leg that she knows of. No prior clots or clotting issues. Would like to go back to see podiatry if able. Also some concerns of back pain, bilateral knee pain. Has seen ortho in the past. Steroids have been helpful. Don't effect sugars too much. Prior issues with anemia. No recent labs. No recent office visits. Her medications were reviewed today and her list is now up to date. Medications Current Outpatient Medications Medication Sig cyclobenzaprine (FLEXERIL) 10 mg tablet Take 1 tablet by mouth three times daily as needed for muscle spasm. May make drowsy metFORMIN (GLUCOPHAGE) 500 mg tablet Take 2 tablets by mouth twice daily with meals. Take one additional 500 mg tab with breakfast or lunch until BS less than 250 montelukast (SINGULAIR) 10 mg tablet Take 1 tablet by mouth daily at bedtime. naproxen (NAPROSYN) 500 mg tablet Take 1 tablet by mouth twice daily as needed (for pain/inflammation). Take with food. SUMAtriptan (IMITREX) 25 mg tablet Take 1 tablet by mouth at onset of headache and may repeat in 2 hrs if needed. glimepiride (AMARYL) 4 mg tablet Take 1 tablet by mouth daily with breakfast. Dose change, take one daily albuterol HFA (VENTOLIN HFA) 90 mcg/actuation inhaler Inhale 2 Puffs as instructed every 4 hours as needed. Albuterol Sulfate 1.25 mg/3 mL nebulizer solution Use 1 Ampule via nebulizer every 4 hours as needed for wheezing/shortness of breath. topiramate (TOPAMAX) 100 mg tablet Take 1 tablet by mouth twice daily. loratadine (CLARITIN) 10 mg tablet Take 1 tablet by mouth once daily. lansoprazole (PREVACID) 30 mg capsule Take 1 capsule by mouth daily before breakfast. pramipexole (MIRAPEX) 1.5 mg tablet Take 1 tablet by mouth daily at bedtime. ARIPiprazole (ABILIFY) 2 mg tablet Take 1 tablet by mouth once daily. (Patient taking differently: Take 5 mg by mouth once daily.) diphenhydrAMINE (BENADRYL) 25 mg capsule Take 1 capsule by mouth every 6 hours as needed for Itching/Rash. lamoTRIgine (LAMICTAL) 200 mg tablet Take 1 tablet by mouth once daily. (Patient taking differently: Take 150 mg by mouth twice daily.) traZODone (DESYREL) 100 mg tablet 300 mg. Take 1 to 2 tablets by mouth at bedtime as needed. LORazepam (ATIVAN) 1 mg tablet Take 1 tablet by mouth twice daily. As needed. citalopram (CELEXA) 40 mg tablet Take 40 mg by mouth once daily. [facility] furosemide (LASIX) 20 mg tablet Take 1 tablet by mouth once daily. cephALEXin (KEFLEX) 500 mg capsule Take 1 capsule by mouth three times daily for 7 days. predniSONE (DELTASONE) 10 mg tablet Take 2 tabs po BID for 2 days then 1 tab po BID for 2 days then 1/2 tab po BID for 2 days then 1/2 tab daily for 2 days then stop blood sugar diagnostic (TRUE METRIX GLUCOSE TEST STRIP) test strip Use as instructed CPAP Continue CPAP @ 15 cm of water with humidification. Mask (per patient preference) optional chin strap (if indicated) , filters, tubing, humidifier and lifetime supplies. G47.33 MARIA TERESA on CPAP Blood-Glucose Meter (TRUE METRIX GLUCOSE METER) Use DIRECTED. Dx:Diabetes 11.9 lancets (UNILET LANCET) 28 gauge Check sugars once daily and as needed for symptoms of high or low sugars Dx E11.9 Insulin: no blood sugar diagnostic (FREESTYLE LITE STRIPS) test strip Test blood sugar(s) 1 times daily and as needed. Dx: Type 2 DM - Controlled E11.9 Insulin: No FREESTYLE FREEDOM LITE monitoring kit USE DIRECTED CPAP Needs lifetime supplies (mask, hoses, headgear, filters, water chamber) G47.33 (already has CPAP) urea (CARMOL) 40 % crea Apply 1 application to affected area twice daily. (Patient not taking: Reported on 02/19/2023) Nebulizer NEBULIZER and Supplies FOR HOME USE. DX: J45.40 No current facility-administered medications for this visit. ALLERGIES Allergen Reactions Penicillins Itching, Hives Environmental [Othe* dust, pet hair=asthma attack Melatonin Rash, Hives Wellbutrin [Bupropi* Intolerance Dry mouth--se (more content not included)... [facility] 02-19-2023 History of Present illness Narrative SUBJECTIVE Nanci Bob is a 42 year old female here today for acute concerns. Chief Complaint Patient presents with: Edema: was seen in ER and told has cellulitis but never treated her. Has areas on abdomen and lower legs Back Pain: lower back pain that radiates down into left leg for about 2 days HPI Nanci Bob is a 42 year old female established patient. Presents today for concerns of a cellulitis to her abdomen and right leg. Started with the abdomen. Was seen in ER in November for this. This is her first issues with cellulitis but it has been on going for several months. She is a diabetic but does not inject insulin. Abdomen has an area of redness, warm to touch. No drainage or open area. Right leg started recently with redness, some increased swelling. No injury to the leg that she knows of. No prior clots or clotting issues. Would like to go back to see podiatry if able. Also some concerns of back pain, bilateral knee pain. Has seen ortho in the past. Steroids have been helpful. Don't effect sugars too much. Prior issues with anemia. No recent labs. No recent office visits. Her medications were reviewed today and her list is now up to date. Medications Current Outpatient Medications Medication Sig cyclobenzaprine (FLEXERIL) 10 mg tablet Take 1 tablet by mouth three times daily as needed for muscle spasm. May make drowsy metFORMIN (GLUCOPHAGE) 500 mg tablet Take 2 tablets by mouth twice daily with meals. Take one additional 500 mg tab with breakfast or lunch until BS less than 250 montelukast (SINGULAIR) 10 mg tablet Take 1 tablet by mouth daily at bedtime. naproxen (NAPROSYN) 500 mg tablet Take 1 tablet by mouth twice daily as needed (for pain/inflammation). Take with food. SUMAtriptan (IMITREX) 25 mg tablet Take 1 tablet by mouth at onset of headache and may repeat in 2 hrs if needed. glimepiride (AMARYL) 4 mg tablet Take 1 tablet by mouth daily with breakfast. Dose change, take one daily albuterol HFA (VENTOLIN HFA) 90 mcg/actuation inhaler Inhale 2 Puffs as instructed every 4 hours as needed. Albuterol Sulfate 1.25 mg/3 mL nebulizer solution Use 1 Ampule via nebulizer every 4 hours as needed for wheezing/shortness of breath. topiramate (TOPAMAX) 100 mg tablet Take 1 tablet by mouth twice daily. loratadine (CLARITIN) 10 mg tablet Take 1 tablet by mouth once daily. lansoprazole (PREVACID) 30 mg capsule Take 1 capsule by mouth daily before breakfast. pramipexole (MIRAPEX) 1.5 mg tablet Take 1 tablet by mouth daily at bedtime. ARIPiprazole (ABILIFY) 2 mg tablet Take 1 tablet by mouth once daily. (Patient taking differently: Take 5 mg by mouth once daily.) diphenhydrAMINE (BENADRYL) 25 mg capsule Take 1 capsule by mouth every 6 hours as needed for Itching/Rash. lamoTRIgine (LAMICTAL) 200 mg tablet Take 1 tablet by mouth once daily. (Patient taking differently: Take 150 mg by mouth twice daily.) traZODone (DESYREL) 100 mg tablet 300 mg. Take 1 to 2 tablets by mouth at bedtime as needed. LORazepam (ATIVAN) 1 mg tablet Take 1 tablet by mouth twice daily. As needed. citalopram (CELEXA) 40 mg tablet Take 40 mg by mouth once daily. [facility] by [facility] [facility] furosemide (LASIX) 20 mg tablet Take 1 tablet by mouth once daily. cephALEXin (KEFLEX) 500 mg capsule Take 1 capsule by mouth three times daily for 7 days. predniSONE (DELTASONE) 10 mg tablet Take 2 tabs po BID for 2 days then 1 tab po BID for 2 days then 1/2 tab po BID for 2 days then 1/2 tab daily for 2 days then stop blood sugar diagnostic (TRUE METRIX GLUCOSE TEST STRIP) test strip Use as instructed CPAP Continue CPAP @ 15 cm of water with humidification. Mask (per patient preference) optional chin strap (if indicated) , filters, tubing, humidifier and lifetime supplies. G47.33 MARIA TERESA on CPAP Blood-Glucose Meter (TRUE METRIX GLUCOSE METER) Use DIRECTED. Dx:Diabetes 11.9 lancets (UNILET LANCET) 28 gauge Check sugars once daily and as needed for symptoms of high or low sugars Dx E11.9 Insulin: no blood sugar diagnostic (FREESTYLE LITE STRIPS) test strip Test blood sugar(s) 1 times daily and as needed. Dx: Type 2 DM - Controlled E11.9 Insulin: No FREESTYLE FREEDOM LITE monitoring kit USE DIRECTED CPAP Needs lifetime supplies (mask, hoses, headgear, filters, water chamber) G47.33 (already has CPAP) urea (CARMOL) 40 % crea Apply 1 application to affected area twice daily. (Patient not taking: Reported on 02/19/2023) Nebulizer NEBULIZER and Supplies FOR HOME USE. DX: J45.40 No current facility-administered medications for this visit. ALLERGIES Allergen Reactions Penicillins Itching, Hives Environmental [Othe* dust, pet hair=asthma attack Melatonin Rash, Hives Wellbutrin [Bupropi* Intolerance Dry mouth--severe, intolerable ACTIVE PROBLEM LIST Hyperlipidemia With Target Ldl Less Than 100 - 03/16/2020 Restless Leg Syndrome - 03/16/2020 Atypical Chest Pain - 02/28/2018 Comment: Abnormal stress / SPECT per [facility] notes. Normal coronaries on heart catheterization [facility] 02/26/2018 Dr. Brooks Morbid Obesity ([facility]) - 09/27/2016 Umbilical Hernia Without Obstruction Or Gangrene - 09/22/2016 Diabetes Mellitus Type 2, Controlled, Without Complications ([facility]) - 12/30/2015 Lumbar Spondylosis - 02/17/2013 Ddd (Degenerative Disc Disease), Lumbar - 02/17/2013 Chronic Radicular Low Back Pain - 07/17/2012 Papanicolaou Smear of Cervix With Low Grade Squamous Intraepithelial Lesion ([facility]) - 12/26/2011 Moderate depressed bipolar I disorder ([facility]) - 12/26/2011 Migraine Without Aura - 03/29/2006 Asthma Allergic Rhinitis Social History Tobacco Use Smoking status: Every Day Packs/day: 1.00 Years: 8.00 Pack years: 8.00 Types: Cigarettes Start date: 08/17/1998 Smokeless tobacco: Never Substance Use Topics Alcohol use: Yes Comment: Seldom Drug use: No Comment: Past history of [place]uana use Review of Systems Respiratory: Negative. Cardiovascular: Positive for leg swelling. Negative for chest pain and palpitations. OBJECTIVE BP 120/68 Pulse 111 Wt 379 lb (171.9kg) SpO2 98% LMP 01/24/2023 Physical Exam Vitals and nursing note reviewed. Constitutional: General: She is awake. She is not in acute distress. Appearance: Normal appearance. She is well-developed and well-groomed. She is obese. She is not ill-appearing, toxic-appearing or diaphoretic. HENT: Head: Normocephalic. Right Ear: External ear normal. Left Ear: External ear normal. Nose: Nose normal. Eyes: General: Vision grossly intact. Conjunctiva/sclera: Conjunctivae normal. Pupils: Pupils are equal, round, and reactive to light. Neck: Vascular: No JVD. Trachea: Trachea normal. Cardiovascular: Rate and Rhythm: Normal rate and regular rhythm. Pulses: Normal pulses. Heart sounds: Normal heart sounds. No murmur heard. Pulmonary: Effort: Pulmonary effort is normal. No accessory muscle usage, prolonged expiration or respiratory distress. Breath sounds: Normal breath sounds. Musculoskeletal: Cervical back: Neck supple. Right lower leg: Edema (R>L with light erythema, slight warmth to touch, nontender) present. Left lower leg: Edema present. Skin: General: Skin is warm and dry. Capillary Refill: Capillary refill takes less than 2 seconds. Neurological: General: No focal deficit present. Mental Status: She is alert and oriented to person, place, and time. Mental status is at baseline. Psychiatric: Attention and Perception: Attention and perception normal. Mood and Affect: Mood and affect normal. Speech: Speech normal. Behavior: Behavior normal. Behavior is cooperative. Thought Content: Thought content normal. Cognition and Memory: Cognition and memory normal. Judgment: Judgment normal. ASSESSMENT/PLAN: 1. Cellulitis of right lower extremity - ICD9: 682.6, ICD10: L03.115 (primary diagnosis) Cellulitis of abdomen and right leg, since it is only the right we discussed low suspicion for a clot but will check an ultrasound to be certain. It is not tender and there are no palpable lumps or bumps and no injury to the leg. - Begin treatment with Cephalaxin (Keflex) - No lymphangetic streaking, this was defined for patient to watch for and to seek medical care immediately if appears - Area of cellulitis defined, seek further attention if this area continues to enlarge - US LEG VEIN DVT UNL VAS LAB - FUROSEMIDE 20 MG TABLET - CEPHALEXIN 500 MG CAPSULE - US DVT LOWER RIGHT 2. Bilateral leg edema - ICD9: 782.3, ICD10: R60.0 - US LEG VEIN DVT UNL VAS LAB - FUROSEMIDE 20 MG TABLET - US DVT LOWER RIGHT 3. Chronic radicular low back pain - ICD9: 724.4, 338.29, ICD10: M54.16, G89.29 - PREDNISONE 10 MG TABLET - CONSULT TO ORTHOPAEDICS 4. Chronic pain of both knees - ICD9: 719.46, 338.29, ICD10: M25.561, M25.562, G89.29 - PREDNISONE 10 MG TABLET - CONSULT TO ORTHOPAEDICS 5. Controlled type 2 diabetes mellitus without complication, without long-term current use of insulin (HCC) - ICD9: 250.00, ICD10: E11.9 - CONSULT TO PODIATRY - HGB A1C - ALBUMIN/CREAT RATIO RND UR 6. Hyperlipidemia with target LDL less than 100 - ICD9: 272.4, ICD10: E78.5 - LIPID PANEL BASIC 7. Iron deficiency anemia secondary to inadequate dietary iron intake - ICD9: 280.1, ICD10: D50.8 - CBC + DIFF - FERRITIN BLD - IRON + TIBC 8. Encounter for therapeutic drug monitoring - ICD9: V58.83, ICD10: Z51.81 - CBC + DIFF - COMP METABOLIC PANEL - LIPID PANEL BASIC - HGB A1C - ALBUMIN/CREAT RATIO RND UR - FERRITIN BLD - IRON + TIBC - VITAMIN D 25 HYDROXY - MAGNESIUM BLD Portions of this note have been entered by ancillary staff. I have reviewed and when necessary edited, so that they are an adequate record of my encounter with this patient Please note that parts of this document were created using voice recognition software and therefore may contain grammatical errors. Patient verbalizes understanding of instructions from today's visit and in agreement with treatment plan. Questions answered. Agrees to call the office if questions, concerns of issues with acute symptoms not improving or if they worsen. Return in about 4 weeks (around 03/19/2023) for recheck. OLLIE Christopher documented in this encounter [facility] 02-14-2023 Miscellaneous Notes Spoke with patient and for transportation reasons she would like to see a provider in [place]. I provided patient with phone number to schedule for Dr. Se Kinney. Lm for pt to call back to schedule. Anahi Degroot Consult orders placed, please assist with scheduling. Thanks! PT would also like consult placed for pain management due to her knee problems. Olivia RODRIGUES PT calling stating she is having pain in the bottom of feet when she walks, asking referral to podiatry. Olivia PSS documented in this encounter [facility] 02-13-2023 Note Patient Outreach ([facility]) NANCI BOB ([id number]) 1980 F Date Time Provider Department 02/13/23 PCP ([facility]) [facility] During your visit today, we recorded the following information about you: Ella Fournier 02/13/2023 11:58 AM Signed POPULATION HEALTH NAVIGATION OUTREACH Action/FYI 2nd call, pt will call back to schedule Patient Identified by Name and : YES, via phone Outreach Outcome/Action Spoke to patient / parent / legal guardian: Patient will return the call or ask for return call Did you use a PCP flex slot to schedule this appointment? No Reason for Outreach Care Gap or Scheduling/Wellness visits Payer: Payor: [facility] MEDICAID / Plan: [facility] MEDICAID / Product Type: Medicaid / Care Gap Reviewed:: Specialty Scheduling Reminder: Reminder note to check Health Maintenance for items below Health Maintenance items due: HEPATITIS B(1 of 3 - 3-dose series) Never done COVID-19 VACCINE(1) Never done PNEUMOCOCCAL(2 - PCV) due on 01/27/2017 DILATED RETINAL EXAM due on 12/02/2020 DIABETIC FOOT EXAM due on 03/16/2021 MAMMOGRAM Never done ANNUAL PCP TEAM CHRONIC DISEASE VISIT due on 10/15/2021 URINE ALBUMIN:CREATININE RATIO due on 01/03/2022 DEPRESSION ASSESSMENT due on 09/17/2022 Navigation Signature: Ella Fournier February 13, 2023 11:58 AM Allergies As of Date: 02/13/2023 Noted Allergy Reaction PENICILLINS 08/24/2011 9 - Itching 4 - Hives environmental [Other] 09/05/2006 Comments: dust, pet hair=asthma attack MELATONIN 11/08/2016 2 - Rash 4 - Hives WELLBUTRIN (BUPROPION) 03/12/2019 5 - Intolerance Comments: Dry mouth--severe, intolerable Date Reviewed: 09/01/2022 Reviewed by: Lizabeth Melendrez LPN - Fully Assessed Prescriptions as of 02/13/2023 - cyclobenzaprine (FLEXERIL) 10 mg tablet Take 1 tablet by mouth three times daily as needed for muscle spasm. May make drowsy - metFORMIN (GLUCOPHAGE) 500 mg tablet Take 2 tablets by mouth twice daily with meals. Take one additional 500 mg tab with breakfast or lunch until BS less than 250 - montelukast (SINGULAIR) 10 mg tablet Take 1 tablet by mouth daily at bedtime. - naproxen (NAPROSYN) 500 mg tablet Take 1 tablet by mouth twice daily as needed (for pain/inflammation). Take with food. - SUMAtriptan (IMITREX) 25 mg tablet Take 1 tablet by mouth at onset of headache and may repeat in 2 hrs if needed. - glimepiride (AMARYL) 4 mg tablet Take 1 tablet by mouth daily with breakfast. Dose change, take one daily - albuterol HFA (VENTOLIN HFA) 90 mcg/actuation inhaler Inhale 2 Puffs as instructed every 4 hours as needed. - Albuterol Sulfate 1.25 mg/3 mL nebulizer solution Use 1 Ampule via nebulizer every 4 hours as needed for wheezing/shortness of breath. - blood sugar diagnostic (TRUE METRIX GLUCOSE TEST STRIP) test strip Use as instructed - CPAP Continue CPAP @ 15 cm of water with humidification. Mask (per patient preference) optional chin strap (if indicated) , filters, tubing, humidifier and lifetime supplies. G47.33 MARIA TERESA on CPAP - Blood-Glucose Meter (TRUE METRIX GLUCOSE METER) Use DIRECTED. Dx:Diabetes 11.9 - lancets (UNILET LANCET) 28 gauge Check sugars once daily and as needed for symptoms of high or low sugars Dx E11.9 Insulin: no - topiramate (TOPAMAX) 100 mg tablet Take 1 tablet by mouth twice daily. - loratadine (CLARITIN) 10 mg tablet Take 1 tablet by mouth once daily. - lansoprazole (PREVACID) 30 mg capsule Take 1 capsule by mouth daily before breakfast. - pramipexole (MIRAPEX) 1.5 mg tablet Take 1 tablet by mouth daily at bedtime. - blood sugar diagnostic (FREESTYLE LITE STRIPS) test strip Test blood sugar(s) 1 times daily and as needed. Dx: Type 2 DM - Controlled E11.9 Insulin: No - furosemide (LASIX) 20 mg tablet Take 1 tablet by mouth once daily. - potassium chloride SR (MICRO-K) 10 mEq CR capsule Take 1 capsule by mouth once daily. - triamcinolone acetonide (KENALOG) 0.1 % cream Apply 1 application to affected area three times daily as needed. Apply sparingly to area for rash/itching on extremities or torso. - ARIPiprazole (ABILIFY) 2 mg tablet Take 1 tablet by mouth once daily. - ketoconazole (NIZORAL) 2 % cream Apply 1 application to affected area once daily. May increase to twice daily if needed. Treat 1 more week after rash resolves - diphenhydrAMINE (BENADRYL) 25 mg capsule Take 1 capsule by mouth every 6 hours as needed for Itching/Rash. - FREESTYLE FREEDOM LITE monitoring kit USE DIRECTED - nystatin (NYSTOP) powder Apply 1 application to affected area four times daily. - CPAP Needs lifetime supplies (mask, hoses, headgear, filters, water chamber) G47.33 (already has CPAP) - urea (CARMOL) 40 % crea Apply 1 application to affected area twice daily. - lamoTRIgine (LAMICTAL) 200 mg tablet Take 1 tablet by mouth once daily. - traZODone (more content not included)... [facility] 02-13-2023 Note Patient Outreach ([facility]) NANCI BOB ([id number]) 1980 F Date Time Provider Department 02/13/23 NO PCP [facility]IEL During your visit today, we recorded the following information about you: Terri Onofre 02/13/2023 9:58 AM Signed POPULATION HEALTH NAVIGATION OUTREACH Action/FYI AC [facility] Support: Called pt to schedule an appt in Pain Management. Lvm for pt to call [phone] for scheduling. Patient Identified by Name and : NO Outreach Outcome/Action Unable to reach patient: Left message Did you use a PCP flex slot to schedule this appointment? No Reason for Outreach Care Gap or Scheduling/Wellness visits Payer: Payor: [facility] MEDICAID / Plan: [facility] MEDICAID / Product Type: Medicaid / Care Gap Reviewed:: Specialty Scheduling Reminder: Reminder note to check Health Maintenance for items below Health Maintenance items due: HEPATITIS B(1 of 3 - 3-dose series) Never done COVID-19 VACCINE(1) Never done PNEUMOCOCCAL(2 - PCV) due on 01/27/2017 DILATED RETINAL EXAM due on 12/02/2020 DIABETIC FOOT EXAM due on 03/16/2021 MAMMOGRAM Never done ANNUAL PCP TEAM CHRONIC DISEASE VISIT due on 10/15/2021 URINE ALBUMIN:CREATININE RATIO due on 01/03/2022 DEPRESSION ASSESSMENT due on 09/17/2022 Navigation Signature: Terri Onofre February 13, 2023 9:57 AM Allergies As of Date: 02/13/2023 Noted Allergy Reaction PENICILLINS 08/24/2011 9 - Itching 4 - Hives environmental [Other] 09/05/2006 Comments: dust, pet hair=asthma attack MELATONIN 11/08/2016 2 - Rash 4 - Hives WELLBUTRIN (BUPROPION) 03/12/2019 5 - Intolerance Comments: Dry mouth--severe, intolerable Date Reviewed: 09/01/2022 Reviewed by: Lizabeth Melendrez LPN - Fully Assessed Prescriptions as of 02/13/2023 - cyclobenzaprine (FLEXERIL) 10 mg tablet Take 1 tablet by mouth three times daily as needed for muscle spasm. May make drowsy - metFORMIN (GLUCOPHAGE) 500 mg tablet Take 2 tablets by mouth twice daily with meals. Take one additional 500 mg tab with breakfast or lunch until BS less than 250 - montelukast (SINGULAIR) 10 mg tablet Take 1 tablet by mouth daily at bedtime. - naproxen (NAPROSYN) 500 mg tablet Take 1 tablet by mouth twice daily as needed (for pain/inflammation). Take with food. - SUMAtriptan (IMITREX) 25 mg tablet Take 1 tablet by mouth at onset of headache and may repeat in 2 hrs if needed. - glimepiride (AMARYL) 4 mg tablet Take 1 tablet by mouth daily with breakfast. Dose change, take one daily - albuterol HFA (VENTOLIN HFA) 90 mcg/actuation inhaler Inhale 2 Puffs as instructed every 4 hours as needed. - Albuterol Sulfate 1.25 mg/3 mL nebulizer solution Use 1 Ampule via nebulizer every 4 hours as needed for wheezing/shortness of breath. - blood sugar diagnostic (TRUE METRIX GLUCOSE TEST STRIP) test strip Use as instructed - CPAP Continue CPAP @ 15 cm of water with humidification. Mask (per patient preference) optional chin strap (if indicated) , filters, tubing, humidifier and lifetime supplies. G47.33 MARIA TERESA on CPAP - Blood-Glucose Meter (TRUE METRIX GLUCOSE METER) Use DIRECTED. Dx:Diabetes 11.9 - lancets (UNILET LANCET) 28 gauge Check sugars once daily and as needed for symptoms of high or low sugars Dx E11.9 Insulin: no - topiramate (TOPAMAX) 100 mg tablet Take 1 tablet by mouth twice daily. - loratadine (CLARITIN) 10 mg tablet Take 1 tablet by mouth once daily. - lansoprazole (PREVACID) 30 mg capsule Take 1 capsule by mouth daily before breakfast. - pramipexole (MIRAPEX) 1.5 mg tablet Take 1 tablet by mouth daily at bedtime. - blood sugar diagnostic (FREESTYLE LITE STRIPS) test strip Test blood sugar(s) 1 times daily and as needed. Dx: Type 2 DM - Controlled E11.9 Insulin: No - furosemide (LASIX) 20 mg tablet Take 1 tablet by mouth once daily. - potassium chloride SR (MICRO-K) 10 mEq CR capsule Take 1 capsule by mouth once daily. - triamcinolone acetonide (KENALOG) 0.1 % cream Apply 1 application to affected area three times daily as needed. Apply sparingly to area for rash/itching on extremities or torso. - ARIPiprazole (ABILIFY) 2 mg tablet Take 1 tablet by mouth once daily. - ketoconazole (NIZORAL) 2 % cream Apply 1 application to affected area once daily. May increase to twice daily if needed. Treat 1 more week after rash resolves - diphenhydrAMINE (BENADRYL) 25 mg capsule Take 1 capsule by mouth every 6 hours as needed for Itching/Rash. - FREEBoard a Boat FREEDOM LITE monitoring kit USE DIRECTED - nystatin (NYSTOP) powder Apply 1 application to affected area four times daily. - CPAP Needs lifetime supplies (mask, hoses, headgear, filters, water chamber) G47.33 (already has CPAP) - urea (CARMOL) 40 % crea Apply 1 application to affected area twice daily. - lamoTRIgine (LAMICTAL) 200 mg tablet Take 1 tablet by mouth once daily. - traZODone (more content not included)... [facility] 02-13-2023 Note HNO ID: [id number] Author: Ella Fournier Service: ? Author Type: ? Type: Progress Notes Filed: 02/13/2023 11:58 AM Note Text: POPULATION HEALTH NAVIGATION OUTREACH Action/FYI 2nd call, pt will call back to schedule Patient Identified by Name and : YES, via phone Outreach Outcome/Action Spoke to patient / parent / legal guardian: Patient will return the call or ask for return call Did you use a PCP flex slot to schedule this appointment? No Reason for Outreach Care Gap or Scheduling/Wellness visits Payer: Payor: [facility] MEDICAID / Plan: [facility] / Product Type: Medicaid / Care Gap Reviewed:: Specialty Scheduling Reminder: Reminder note to check Health Maintenance for items below Health Maintenance items due: HEPATITIS B(1 of 3 - 3-dose series) Never done COVID-19 VACCINE(1) Never done PNEUMOCOCCAL(2 - PCV) due on 01/27/2017 DILATED RETINAL EXAM due on 12/02/2020 DIABETIC FOOT EXAM due on 03/16/2021 MAMMOGRAM Never done ANNUAL PCP TEAM CHRONIC DISEASE VISIT due on 10/15/2021 URINE ALBUMIN:CREATININE RATIO due on 01/03/2022 DEPRESSION ASSESSMENT due on 09/17/2022 Navigation Signature: Ella Fournier February 13, 2023 11:58 AM [facility] 02-13-2023 Note HNO ID: [id number] Author: Terri Onofre Service: ? Author Type: ? Type: Progress Notes Filed: 02/13/2023 9:58 AM Note Text: POPULATION HEALTH NAVIGATION OUTREACH Action/FYI Warren Support: Called pt to schedule an appt in Pain Management. Lvm for pt to call [phone] for scheduling. Patient Identified by Name and : NO Outreach Outcome/Action Unable to reach patient: Left message Did you use a PCP flex slot to schedule this appointment? No Reason for Outreach Care Gap or Scheduling/Wellness visits Payer: Payor: [employer] MEDICAID / Plan: [employer] MEDICA[employer] / Product Type: Medicaid / Care Gap Reviewed:: Specialty Scheduling Reminder: Reminder note to check Health Maintenance for items below Health Maintenance items due: HEPATITIS B(1 of 3 - 3-dose series) Never done COVID-19 VACCINE(1) Never done PNEUMOCOCCAL(2 - PCV) due on 01/27/2017 DILATED RETINAL EXAM due on 12/02/2020 DIABETIC FOOT EXAM due on 03/16/2021 MAMMOGRAM Never done ANNUAL PCP TEAM CHRONIC DISEASE VISIT due on 10/15/2021 URINE ALBUMIN:CREATININE RATIO due on 01/03/2022 DEPRESSION ASSESSMENT due on 09/17/2022 Navigation Signature: Terri Onofre February 13, 2023 9:57 AM [facility] 02-13-2023 History of Present illness Narrative POPULATION HEALTH NAVIGATION OUTREACH Action/I 2nd call, pt will call back to schedule Patient Identified by Name and : YES, via phone Outreach Outcome/Action Spoke to patient / parent / legal guardian: Patient will return the call or ask for return call Did you use a PCP flex slot to schedule this appointment? No Reason for Outreach Care Gap or Scheduling/Wellness visits Payer: Payor: [facility] MEDICAID / [facility] / Product Type: Medicaid / Care Gap Reviewed:: Specialty Scheduling Reminder: Reminder note to check Health Maintenance for items below Health Maintenance items due: HEPATITIS B(1 of 3 - 3-dose series) Never done COVID-19 VACCINE(1) Never done PNEUMOCOCCAL(2 - PCV) due on 01/27/2017 DILATED RETINAL EXAM due on 12/02/2020 DIABETIC FOOT EXAM due on 03/16/2021 MAMMOGRAM Never done ANNUAL PCP TEAM CHRONIC DISEASE VISIT due on 10/15/2021 URINE ALBUMIN:CREATININE RATIO due on 01/03/2022 DEPRESSION ASSESSMENT due on 09/17/2022 Navigation Signature: Ella Fournier February 13, 2023 11:58 AM documented in this encounter [facility] 02-13-2023 History of Present illness Narrative POPULATION HEALTH NAVIGATION OUTREACH Action/FYI Warren Support: Called pt to schedule an appt in Pain Management. Lvm for pt to call [phone] for scheduling. Patient Identified by Name and : NO Outreach Outcome/Action Unable to reach patient: Left message Did you use a PCP flex slot to schedule this appointment? No Reason for Outreach Care Gap or Scheduling/Wellness visits Payer: Payor: [employer] / Plan: [employer] MEDICAID / Product Type: Medicaid / Care Gap Reviewed:: Specialty Scheduling Reminder: Reminder note to check Health Maintenance for items below Health Maintenance items due: HEPATITIS B(1 of 3 - 3-dose series) Never done COVID-19 VACCINE(1) Never done PNEUMOCOCCAL(2 - PCV) due on 01/27/2017 DILATED RETINAL EXAM due on 12/02/2020 DIABETIC FOOT EXAM due on 03/16/2021 MAMMOGRAM Never done ANNUAL PCP TEAM CHRONIC DISEASE VISIT due on 10/15/2021 URINE ALBUMIN:CREATININE RATIO due on 01/03/2022 DEPRESSION ASSESSMENT due on 09/17/2022 Navigation Signature: Terri Onofre February 13, 2023 9:57 AM documented in this encounter [facility] 02-08-2023 Note Patient Outreach ([facility]) NANCI BOB ([id number]) 1980 F Date Time Provider Department 02/08/23 PCP (HISTORICAL) [facility] During your visit today, we recorded the following information about you: Ella Taypa 02/08/2023 11:05 AM Signed POPULATION HEALTH NAVIGATION OUTREACH Action/FYI Left Patient Identified by Name and : NO Outreach Outcome/Action Unable to reach patient: Left message MyChart message sent Did you use a PCP flex slot to schedule this appointment? No Reason for Outreach Care Gap or Scheduling/Wellness visits Payer: Payor: [facility] MEDICAID / Plan: [facility] MEDICAID / Product Type: Medicaid / Care Gap Reviewed:: Specialty Scheduling Reminder: Reminder note to check Health Maintenance for items below Health Maintenance items due: HEPATITIS B(1 of 3 - 3-dose series) Never done COVID-19 VACCINE(1) Never done PNEUMOCOCCAL(2 - PCV) due on 01/27/2017 DILATED RETINAL EXAM due on 12/02/2020 DIABETIC FOOT EXAM due on 03/16/2021 MAMMOGRAM Never done ANNUAL PCP TEAM CHRONIC DISEASE VISIT due on 10/15/2021 URINE ALBUMIN:CREATININE RATIO due on 01/03/2022 DEPRESSION ASSESSMENT due on 09/17/2022 Navigation Signature: Ella Fournier February 08, 2023 11:05 AM Allergies As of Date: 02/08/2023 Noted Allergy Reaction PENICILLINS 08/24/2011 9 - Itching 4 - Hives environmental [Other] 09/05/2006 Comments: dust, pet hair=asthma attack MELATONIN 11/08/2016 2 - Rash 4 - Hives WELLBUTRIN (BUPROPION) 03/12/2019 5 - Intolerance Comments: Dry mouth--severe, intolerable Date Reviewed: 09/01/2022 Reviewed by: Lizabeth Melendrez LPN - Fully Assessed Prescriptions as of 02/08/2023 - cyclobenzaprine (FLEXERIL) 10 mg tablet Take 1 tablet by mouth three times daily as needed for muscle spasm. May make drowsy - metFORMIN (GLUCOPHAGE) 500 mg tablet Take 2 tablets by mouth twice daily with meals. Take one additional 500 mg tab with breakfast or lunch until BS less than 250 - montelukast (SINGULAIR) 10 mg tablet Take 1 tablet by mouth daily at bedtime. - naproxen (NAPROSYN) 500 mg tablet Take 1 tablet by mouth twice daily as needed (for pain/inflammation). Take with food. - SUMAtriptan (IMITREX) 25 mg tablet Take 1 tablet by mouth at onset of headache and may repeat in 2 hrs if needed. - glimepiride (AMARYL) 4 mg tablet Take 1 tablet by mouth daily with breakfast. Dose change, take one daily - albuterol HFA (VENTOLIN HFA) 90 mcg/actuation inhaler Inhale 2 Puffs as instructed every 4 hours as needed. - Albuterol Sulfate 1.25 mg/3 mL nebulizer solution Use 1 Ampule via nebulizer every 4 hours as needed for wheezing/shortness of breath. - blood sugar diagnostic (TRUE METRIX GLUCOSE TEST STRIP) test strip Use as instructed - CPAP Continue CPAP @ 15 cm of water with humidification. Mask (per patient preference) optional chin strap (if indicated) , filters, tubing, humidifier and lifetime supplies. G47.33 MARIA TERESA on CPAP - Blood-Glucose Meter (TRUE METRIX GLUCOSE METER) Use DIRECTED. Dx:Diabetes 11.9 - lancets (UNILET LANCET) 28 gauge Check sugars once daily and as needed for symptoms of high or low sugars Dx E11.9 Insulin: no - topiramate (TOPAMAX) 100 mg tablet Take 1 tablet by mouth twice daily. - loratadine (CLARITIN) 10 mg tablet Take 1 tablet by mouth once daily. - lansoprazole (PREVACID) 30 mg capsule Take 1 capsule by mouth daily before breakfast. - pramipexole (MIRAPEX) 1.5 mg tablet Take 1 tablet by mouth daily at bedtime. - blood sugar diagnostic (FREESTYLE LITE STRIPS) test strip Test blood sugar(s) 1 times daily and as needed. Dx: Type 2 DM - Controlled E11.9 Insulin: No - furosemide (LASIX) 20 mg tablet Take 1 tablet by mouth once daily. - potassium chloride SR (MICRO-K) 10 mEq CR capsule Take 1 capsule by mouth once daily. - triamcinolone acetonide (KENALOG) 0.1 % cream Apply 1 application to affected area three times daily as needed. Apply sparingly to area for rash/itching on extremities or torso. - ARIPiprazole (ABILIFY) 2 mg tablet Take 1 tablet by mouth once daily. - ketoconazole (NIZORAL) 2 % cream Apply 1 application to affected area once daily. May increase to twice daily if needed. Treat 1 more week after rash resolves - diphenhydrAMINE (BENADRYL) 25 mg capsule Take 1 capsule by mouth every 6 hours as needed for Itching/Rash. - FREESTYLE FREEDOM LITE monitoring kit USE DIRECTED - nystatin (NYSTOP) powder Apply 1 application to affected area four times daily. - CPAP Needs lifetime supplies (mask, hoses, headgear, filters, water chamber) G47.33 (already has CPAP) - urea (CARMOL) 40 % crea Apply 1 application to affected area twice daily. - lamoTRIgine (LAMICTAL) 200 mg tablet Take 1 tablet by mouth once daily. - traZODone (DESYREL) 100 mg tablet Take 1 to 2 tablets by mouth at bedtime as needed. - (more content not included)... [facility] 02-08-2023 Note HNO ID: [id number] Author: Ella Fournier Service: ? Author Type: ? Type: Progress Notes Filed: 02/08/2023 11:05 AM Note Text: POPULATION HEALTH NAVIGATION OUTREACH Action/FYI Left vm Patient Identified by Name and : NO Outreach Outcome/Action Unable to reach patient: Left message Mygenit message sent Did you use a PCP flex slot to schedule this appointment? No Reason for Outreach Care Gap or Scheduling/Wellness visits Payer: Payor: [facility] MEDICAID / Plan: [employer] / Product Type: Medicaid / Care Gap Reviewed:: Specialty Scheduling Reminder: Reminder note to check Health Maintenance for items below Health Maintenance items due: HEPATITIS B(1 of 3 - 3-dose series) Never done COVID-19 VACCINE(1) Never done PNEUMOCOCCAL(2 - PCV) due on 01/27/2017 DILATED RETINAL EXAM due on 12/02/2020 DIABETIC FOOT EXAM due on 03/16/2021 MAMMOGRAM Never done ANNUAL PCP TEAM CHRONIC DISEASE VISIT due on 10/15/2021 URINE ALBUMIN:CREATININE RATIO due on 01/03/2022 DEPRESSION ASSESSMENT due on 09/17/2022 Navigation Signature: Ella Fournier February 08, 2023 11:05 AM [facility] 01-19-2023 Miscellaneous Notes Patient has been identified by name and date of : Yes, Provider Dr Villarreal Date 01/19/23 Time 0848. Pharmacy phones for refill(s): Requested Prescriptions Pending Prescriptions Disp Refills cyclobenzaprine (FLEXERIL) 10 mg tablet 30 tablet 2 Sig: Take 1 tablet by mouth three times daily as needed for muscle spasm. May make drowsy Date of last office visit in primary care: 09/01/22 Future visit: 6/20/23 Last 2 Encounter Wt Readings: Date: Wt: 09/01/2022 171.5 kg (378 lb) 08/15/2021 163.7 kg (361 lb) Previous labs/tests for medication: Blood Pressure: BUN (mg/dL) Date Value 2022 11 02/02/2021 7 Sodium (mmol/L) Date Value 2022 137 02/02/2021 136 Last 1 Encounter BP Readings: Date: BP: 09/01/2022 129/72 Liver Function: ALT (U/L) Date Value 2022 20 02/02/2021 62 AST (U/L) Date Value 2022 36 02/02/2021 71 Please advise. Thank you. Ashley Jarrett RN documented in this encounter [facility] 01-01-2023 Miscellaneous Notes Pharmacy verified in [facility] Patient has been identified by name and date of : Yes Patient aware RX will be sent to pharmacy. No need to notify patient. Pharmacy phones for refill(s): Requested Prescriptions Pending Prescriptions Disp Refills naproxen (NAPROSYN) 500 mg tablet 60 tablet 3 Sig: Take 1 tablet by mouth twice daily as needed (for pain/inflammation). Take with food. Date of last office visit : 09/01/2022 Date of next office visit : 03/06/2023 Last 2 Encounter Wt Readings: Date: Wt: 09/01/2022 171.5 kg (378 lb) 08/15/2021 163.7 kg (361 lb) Please advise. Nilda Laughlin Pss documented in this encounter [facility] 01-01-2023 Miscellaneous Notes Pharmacy verified in [facility] Patient has been identified by name and date of : Yes Patient aware RX will be sent to pharmacy. No need to notify patient. Pharmacy phones for refill(s): Requested Prescriptions Pending Prescriptions Disp Refills metFORMIN (GLUCOPHAGE) 500 mg tablet 120 tablet 11 Sig: Take 2 tablets by mouth twice daily with meals. Take one additional 500 mg tab with breakfast or lunch until BS less than 250 montelukast (SINGULAIR) 10 mg tablet 30 tablet 11 Sig: Take 1 tablet by mouth daily at bedtime. Date of last office visit : 09/01/2022 Date of next office visit : 03/06/2023 Last 2 Encounter Wt Readings: Date: Wt: 09/01/2022 171.5 kg (378 lb) 08/15/2021 163.7 kg (361 lb) Please advise. Nilda Laughlin Pss documented in this encounter [facility] 11-23-2022 Miscellaneous Notes Okayed Patient has been identified by name and date of : Yes, Provider Dr Villarreal Date 11/23/22 Time 0843. Pharmacy phones for refill(s): Requested Prescriptions Pending Prescriptions Disp Refills albuterol HFA (VENTOLIN HFA) 90 mcg/actuation inhaler 18 g 11 Sig: Inhale 2 Puffs as instructed every 4 hours as needed. Date of last office visit in primary care: 09/01/22 Future visit: 03/06/23 Last 2 Encounter Wt Readings: Date: Wt: 09/01/2022 171.5 kg (378 lb) 08/15/2021 163.7 kg (361 lb) Previous labs/tests for medication: Blood Pressure: BUN (mg/dL) Date Value 2022 11 02/02/2021 7 Sodium (mmol/L) Date Value 2022 137 02/02/2021 136 Last 1 Encounter BP Readings: Date: BP: 09/01/2022 129/72 Liver Function: ALT (U/L) Date Value 2022 20 02/02/2021 62 AST (U/L) Date Value 2022 36 02/02/2021 71 Please advise. Thank you. Ashley Jarrett RN documented in this encounter [facility] 10-05-2022 Miscellaneous Notes Last Office Visit: 09/01/2022 Future Office Visit: 03/06/2023 Requested Prescriptions Pending Prescriptions Disp Refills Albuterol Sulfate 1.25 mg/3 mL nebulizer solution 75 mL 5 Sig: Use 1 Ampule via nebulizer every 4 hours as needed for wheezing/shortness of breath. Date of Last Labs: 2022 documented in this encounter [facility] 09-29-2022 Miscellaneous Notes PDMP website checked and validated. All prescriptions have been APPROPRIATELY filled. No suspicious activity was identified. 09/29/2022 by Zunilda Liriano APRN.WATCHGUARD Last seen [facility] 09/01/22. Next appt arranged for February. Patient has been identified by name and date of : Yes Last office visit in this department: 09/01/2022 RX INSTRUCTIONS: Patient aware RX will be sent to pharmacy. No need to notify patient. Patient phones requesting refills as follows: Requested Prescriptions Pending Prescriptions Disp Refills acetaminophen-codeine (TYLENOL-CODEINE #3) 300-30 mg per tablet 10 tablet 0 Sig: Take 1 tablet by mouth every 6 hours as needed for pain for up to 7 days. Uses as needed for severe pain. Please review and advise. Nilda Jackson documented in this encounter [facility] 09-26-2022 Miscellaneous Notes Last office visit: 09/01/22 Next appointment scheduled: 03/06/23 Patient has been identified by name and date of : Yes Requested Prescriptions Pending Prescriptions Disp Refills cyclobenzaprine (FLEXERIL) 10 mg tablet 30 tablet 2 Sig: Take 1 tablet by mouth three times daily as needed for muscle spasm. May make drowsy RX INSTRUCTIONS: Pharmacy initiated this request. No need to notify patient. Davy Walters Pss documented in this encounter [facility] 09-22-2022 Miscellaneous Notes Patient had follow up 09/01/22 Needs follow up since not seen since last year. She canceled June and July appointments Needs seen before can give any more refills. Should have openings with Zunilda if none available with tx Last office visit: 08/15/21 Next appointment scheduled: No future appointments scheduled at this time. Patient phones requesting refills as follows: Requested Prescriptions Pending Prescriptions Disp Refills cyclobenzaprine (FLEXERIL) 10 mg tablet 30 tablet 3 Sig: Take 1 tablet by mouth three times daily as needed for muscle spasm. May make drowsy Please review and advise. Sylwia Marcial LPN documented in this encounter [facility] 09-21-2022 Miscellaneous Notes There was no printed rx. They all went electronically. Okayed Printed CPAP supplies RX The following approved medication requests have been transmitted electronically. Requested Prescriptions Signed Prescriptions Disp Refills blood sugar diagnostic (TRUE METRIX GLUCOSE TEST STRIP) test strip 50 Strip 11 Sig: Use as instructed Authorizing Provider: RODRI VILLARREAL CPAP 1 Each 0 Sig: Continue CPAP @ 15 cm of water with humidification. Mask (per patient preference) optional chin strap (if indicated) , filters, tubing, humidifier and lifetime supplies. G47.33 MARIA TERESA on CPAP Authorizing Provider: RODRI VILLARREAL Blood-Glucose Meter (TRUE METRIX GLUCOSE METER) 1 Each 0 Sig: Use DIRECTED. Dx:Diabetes 11.9 Authorizing Provider: RODRI VILLARREAL lancets (UNILET LANCET) 28 gauge 100 Each 11 Sig: Check sugars once daily and as needed for symptoms of high or low sugars Dx E11.9 Insulin: no Authorizing Provider: ORDRI VILLARREAL MD Patient has been identified by name and date of : Yes Last office visit in this department: 09/01/2022 RX INSTRUCTIONS: Patient aware RX will be sent to pharmacy. No need to notify patient. Patient phones requesting refills as follows: Requested Prescriptions Pending Prescriptions Disp Refills blood sugar diagnostic (TRUE METRIX GLUCOSE TEST STRIP) test strip 50 Strip 11 Sig: Use as instructed CPAP Sig: Continue CPAP @ 15 cm of water with humidification. Mask (per patient preference) optional chin strap (if indicated) , filters, tubing, humidifier and lifetime supplies. G47.33 MARIA TERESA on CPAP Blood-Glucose Meter (TRUE METRIX GLUCOSE METER) 1 Each 0 Sig: as directed. lancets (UNILET LANCET) 28 gauge 100 Each 11 Sig: Check sugars once daily and as needed for symptoms of high or low sugars Dx E11.9 Insulin: no Please review and advise. India Goldberg Pss documented in this encounter [facility] 09-12-2022 Miscellaneous Notes Patient has been identified by name and date of : Yes, Provider Artur Wiggins RN Date 09-12-22 Time 11:25 am Pharmacy phones for refill(s): Requested Prescriptions Pending Prescriptions Disp Refills SUMAtriptan (IMITREX) 25 mg tablet 27 tablet 1 Sig: Take 1 tablet by mouth at onset of headache and may repeat in 2 hrs if needed. Date of last office visit with pcp: 09-01-22. Next appt: 03-06-23 Last 2 Encounter Wt Readings: Date: Wt: 09/01/2022 171.5 kg (378 lb) 08/15/2021 163.7 kg (361 lb) Previous labs/tests for medication: Blood Pressure: BUN (mg/dL) Date Value 2022 11 02/02/2021 7 Sodium (mmol/L) Date Value 2022 137 02/02/2021 136 Last 1 Encounter BP Readings: Date: BP: 09/01/2022 129/72 Liver Function: ALT (U/L) Date Value 2022 20 02/02/2021 62 AST (U/L) Date Value 2022 36 02/02/2021 71 Please advise. Thank you. Luis Enrique Wiggins RN documented in this encounter [facility] 09-06-2022 Miscellaneous Notes Patient returned call and given provider's message below with verbalized understanding. Transferred to [facility]. Left message to call & speak to nurse. Vandana Mathias LPN No answer. Left message for patient to call office and ask to speak to a nurse regarding inhaler. She can alternate albuterol inhaler with her albuterol nebulizer solution if needed to extend the duration of her inhaler. If she needs to use this every 4 hours consistently then she needs to see a senior controls analyst as her lung disease is not in good control. Schedule if willing. If using temporarily for every 4 hours not required. Patient said her rx for her HFA inhaler needs to be written differently. Said as needed needs to be removed. Her insurance company is not allowing her to refill it as often as she needs it. Said she uses it every 4 hours daily. Please advise at [phone]/ documented in this encounter [facility] 09-04-2022 Miscellaneous Notes Was not discussed. OK for refill. Patient calling said she was discussing refill for Tylenol with codeine refill at appt on Sunday. Pending rx to file if wanted. Please advise documented in this encounter [facility] 07-12-2022 Miscellaneous Notes LM notifying patient of lab orders Missed or cancelled appointment since last July appointment. Will get refills when in for June appointment as scheduled. I ordered labs assuming not going elsewhere for management of uncontrolled diabetes or getting labs drawn outside of [facility] system. She should get the labs prior to the appointment so can review with Johnson lee. Schedule 6 month follow up with me for after that appointment. The following approved medication requests have been transmitted electronically. Requested Prescriptions Signed Prescriptions Disp Refills topiramate (TOPAMAX) 100 mg tablet 60 tablet 0 Sig: Take 1 tablet by mouth twice daily. Authorizing Provider: RODRI VILLARREAL loratadine (CLARITIN) 10 mg tablet 30 tablet 0 Sig: Take 1 tablet by mouth once daily. Authorizing Provider: RODRI VILLARREAL cyclobenzaprine (FLEXERIL) 10 mg tablet 30 tablet 0 Sig: Take 1 tablet by mouth three times daily as needed for muscle spasm. May make drowsy Authorizing Provider: RODRI VILLARREAL Refused Prescriptions Disp Refills Albuterol Sulfate 1.25 mg/3 mL nebulizer solution 75 mL 5 Sig: Use 1 Ampule via nebulizer every 4 hours as needed for wheezing/shortness of breath. Refused By: LIZABETH MELENDREZ LPN Reason for Refusal: Records indicate that there is a valid prescription at the pharmacy Rodri Villarreal MD Patient has been identified by name and date of : Yes Last office visit in this department: 08/15/2021 RX INSTRUCTIONS: Patient aware RX will be sent to pharmacy. No need to notify patient. Patient phones requesting refills as follows: Requested Prescriptions Pending Prescriptions Disp Refills topiramate (TOPAMAX) 100 mg tablet 60 tablet 5 Sig: Take 1 tablet by mouth twice daily. loratadine (CLARITIN) 10 mg tablet 30 tablet 2 Sig: Take 1 tablet by mouth once daily. cyclobenzaprine (FLEXERIL) 10 mg tablet 30 tablet 0 Sig: Take 1 tablet by mouth three times daily as needed for muscle spasm. May make drowsy Albuterol Sulfate 1.25 mg/3 mL nebulizer solution 75 mL 5 Sig: Use 1 Ampule via nebulizer every 4 hours as needed for wheezing/shortness of breath. Please review and advise. Loretta Ruff Pss documented in this encounter [facility] 07-11-2022 Miscellaneous Notes Patient has been identified by name and date of : Yes Requested Prescriptions Pending Prescriptions Disp Refills Albuterol Sulfate 1.25 mg/3 mL nebulizer solution 75 mL 5 Sig: Use 1 Ampule via nebulizer every 4 hours as needed for wheezing/shortness of breath. RX INSTRUCTIONS: Pharmacy initiated this request. No need to notify patient. Jo Ann Delgado Pss documented in this encounter [facility] 06-20-2022 Miscellaneous Notes Patient has been identified by name and date of : Yes Requested Prescriptions Pending Prescriptions Disp Refills naproxen (NAPROSYN) 500 mg tablet 60 tablet 3 Sig: Take 1 tablet by mouth twice daily as needed (for pain/inflammation). Take with food. RX INSTRUCTIONS: Pharmacy initiated this request. No need to notify patient. Sharmaine Womack [employer] documented in this encounter [facility] 05-29-2022 Miscellaneous Notes Okayed CAESAR: 08/15/2021 NOV: 05/31/2022 Imitrex Last refill: 11/23/2021 QTY: 27 Refills: 1 flexeril Last refill: 04/25/2022 QTY: 30 Refills: 0 Patient has been identified by name and date of : Yes Last office visit in this department: 08/15/2021 RX INSTRUCTIONS: Patient states they are needing a refill of Flexeril not currently on medication list. Patient aware RX will be sent to pharmacy. No need to notify patient. Patient phones requesting refills as follows: Requested Prescriptions Pending Prescriptions Disp Refills SUMAtriptan (IMITREX) 25 mg tablet 27 tablet 1 Sig: Take 1 tablet by mouth at onset of headache and may repeat in 2 hrs if needed. Please review and advise. India Goldberg Pss documented in this encounter [facility] 05-29-2022 Miscellaneous Notes Called [facility], asking for the prescription to be written alittle differently because they are having to deliver Albuterol Nebulizer solution to Patient every 5 days. As the prescription is written 1 box = 25 vials, Patient is using 4-5x daily. Vandana Mathias LPN Patient has been identified by name and date of : Yes Requested Prescriptions Pending Prescriptions Disp Refills Albuterol Sulfate 1.25 mg/3 mL nebulizer solution 75 mL 5 Sig: Use 1 Ampule via nebulizer every 4 hours as needed for wheezing/shortness of breath. RX INSTRUCTIONS: Patient aware RX will be sent to pharmacy. No need to notify patient. Sherie Lazcano documented in this encounter [facility] 04-25-2022 Miscellaneous Notes Okayed Last Office Visit: 08/15/2021 Future Office Visit: 06/26/2022 Last Medication Refill: loratadine 11/23/2021 30 tab 3 refill Date of Last Labs: 02/02/2021 documented in this encounter [facility] 04-24-2022 Miscellaneous Notes Pharmacy verified in Epic Patient has been identified by name and date of : Yes Patient aware RX will be sent to pharmacy. No need to notify patient. Patient phones for refill(s): Pending Prescriptions Disp Refills ALBUTEROL SULFATE 1.25 MG/3 ML SOLUTION FOR NEBULIZATION 75 mL 5 Sig: Use 1 Ampule via nebulizer every 4 hours as needed for wheezing/shortness of breath. SANCHO: No CYCLOBENZAPRINE 10 MG TABLET 30 tablet 0 Sig: Take 1 tablet by mouth three times daily as needed for muscle spasm. May make drowsy SANCHO: No LANSOPRAZOLE 30 MG CAPSULE,DELAYED RELEASE 30 capsule 11 Sig: Take 1 capsule by mouth daily before breakfast. SANCHO: No Date of last office visit : 08/15/2021 Date of next office visit : 06/26/2022 Last 2 Encounter Wt Readings: Date: Wt: 08/15/2021 163.7 kg (361 lb) 01/20/2021 162.6 kg (358 lb 6.4 oz) Please advise. Nilda Laughlin Pss documented in this encounter [facility] 04-18-2022 Miscellaneous Notes Pt notified. She is no longer using [facility] would like resent to [facility]. Chantel Wesley Ma Ok to increase from 1mg to 1.5 mg. Rx sent Patient is requesting a call from the provider in regards to medication increase. PT is wanting to up to 1 and 1/2 MG due to starting to not work. Please call pt if this is ok. Patient has been identified by name and date of : Yes Last office visit in this department: 03/16/2020 RX INSTRUCTIONS: Patient aware RX will be sent to pharmacy. No need to notify patient. Patient phones requesting refills as follows: Pending Prescriptions Disp Refills PRAMIPEXOLE 1 MG TABLET 30 tablet 3 Sig: Take 1 tablet by mouth daily at bedtime. SANCHO: No Please review and advise. Mylene Staples documented in this encounter [facility] 03-28-2022 Miscellaneous Notes Spoke with pt and information listed below given. Pt verbalizes understanding. Pt is on a cancellation list to be seen earlier. Kailee Salinas LPN She has missed or cancelled appointments since last July. Needs seen at least every 3 months if taking controlled medication frequently. Just got refilled 03/03 and as noted before, the pain med used to last several months. I will give 20 more pills; written to be no more than every 6 hours as needed and to last at least 7 days on the RX, but this RX needs to last till is able to be seen for appointment appointment. Cannot refill this pain med again till she has been seen. So can make this stretch till sees Johnson as scheduled or book a sooner appointment in the next month or so. The following approved medication requests have been transmitted electronically. Signed Prescriptions Disp Refills cyclobenzaprine (FLEXERIL) 10 mg tablet 30 tablet 0 Sig: Take 1 tablet by mouth three times daily as needed for muscle spasm. May make drowsy SANCHO: No Authorizing Provider: RODRI VILLARREAL acetaminophen-codeine (TYLENOL-CODEINE #3) 300-30 mg per tablet 20 tablet 0 Sig: Take 1 tablet by mouth every 6 hours as needed for pain for up to 7 days. Uses as needed for severe pain. Do not start before March 28, 2022. RAYO Class: C-III SANCHO: No Authorizing Provider: RODRI VILLARREAL MD Last seen [facility] 08/15/21. Pt missed 03/13/22 appt with pcp Next appt with [facility] Patient has been identified by name and date of : Yes Pending Prescriptions Disp Refills CYCLOBENZAPRINE 10 MG TABLET 30 tablet 0 Sig: Take 1 tablet by mouth three times daily as needed for muscle spasm. May make drowsy SANCHO: No ACETAMINOPHEN 300 MG-CODEINE 30 MG TABLET 30 tablet 0 Sig: Take 1 tablet by mouth every 4 hours as needed for pain for up to 5 days. Uses as needed for severe pain. RAYO Class: C-III SANCHO: No RX INSTRUCTIONS: Patient aware RX will be sent to pharmacy. No need to notify patient. Sherie Lazcano documented in this encounter [facility] 03-27-2022 Miscellaneous Notes Pt called and is notified of providers message and instructions. Pt voices understanding. Ashley Jarrett RN Also needed follow up on CBC and CMP and iron stores Filed Patient calling to request an order for Labs, especially A1C Please advise. Patient is requesting a return call from our office. documented in this encounter [facility] 03-14-2022 Miscellaneous Notes Last OV: 08/15/21 Next OV: N/A Patient has been identified by name and date of : Yes Pending Prescriptions Disp Refills PRAMIPEXOLE 1 MG TABLET 30 tablet 3 Sig: Take 1 tablet by mouth daily at bedtime. SANCHO: No RX INSTRUCTIONS: Pharmacy initiated this request. No need to notify patient. Davy Walters Pss documented in this encounter [facility] 03-03-2022 Miscellaneous Notes Left a detailed message with information listed below and letting pt know her prescriptions were sent to the pharmacy. Kailee Salinas LPN Just recently filled Tylenol #3 02/01. Prior filled 11/23 and 09/23. Med not for routine use. If having increased pain, will decide on further evaluation and treatment so not needing to take pain med so often, Will discuss at [facility] appointment . The following approved medication requests have been transmitted electronically. Signed Prescriptions Disp Refills acetaminophen-codeine (TYLENOL-CODEINE #3) 300-30 mg per tablet 30 tablet 0 Sig: Take 1 tablet by mouth every 4 hours as needed for pain for up to 5 days. Uses as needed for severe pain. RAYO Class: C-III SANCHO: No Authorizing Provider: RODRI VILLARREAL cyclobenzaprine (FLEXERIL) 10 mg tablet 30 tablet 0 Sig: Take 1 tablet by mouth three times daily as needed for muscle spasm. May make drowsy SANCHO: No Authorizing Provider: RODRI VILLARREAL albuterol HFA (VENTOLIN HFA) 90 mcg/actuation inhaler 18 g 11 Sig: Inhale 2 Puffs as instructed every 4 hours as needed. SANCHO: No Authorizing Provider: RODRI VILLARREAL MD These need to go to [facility] instead of [facility] please . See change. Patient has been identified by name and date of : Yes Patient phones for refill(s): Pending Prescriptions Disp Refills ACETAMINOPHEN 300 MG-CODEINE 30 MG TABLET 30 tablet 0 Sig: Take 1 tablet by mouth every 4 hours as needed for pain for up to 5 days. Uses as needed for severe pain. RAYO Class: C-III SANCHO: No CYCLOBENZAPRINE 10 MG TABLET 30 tablet 0 Sig: Take 1 tablet by mouth three times daily as needed for muscle spasm. May make drowsy SANCHO: No Date of last office visit in primary care: 08/15/21 next apt 03/13/22 Last 2 Encounter Wt Readings: Date: Wt: 08/15/2021 163.7 kg (361 lb) 01/20/2021 162.6 kg (358 lb 6.4 oz) Previous labs/tests for medication: Not applicable Please advise. Thank you. Kailee Salinas LPN ummary: Med Refill Patient has been identified by name and date of : Yes Last office visit in this department: 03/16/2020 RX INSTRUCTIONS: Patient aware RX will be sent to pharmacy. No need to notify patient. Patient phones requesting refills as follows: Pending Prescriptions Disp Refills ACETAMINOPHEN 300 MG-CODEINE 30 MG TABLET 30 tablet 0 Sig: Take 1 tablet by mouth every 4 hours as needed for pain for up to 5 days. Uses as needed for severe pain. RAYO Class: C-III SANCHO: No CYCLOBENZAPRINE 10 MG TABLET 30 tablet 0 Sig: Take 1 tablet by mouth three times daily as needed for muscle spasm. May make drowsy SANCHO: No Please review and advise. Hannah Medel documented in this encounter [facility] 03-02-2022 Miscellaneous Notes Duplicate refill encounter, same date. See other refill encounter for multiple medications. This encounter closed. Nuzhat Montes RN Patient has been identified by name and date of : Yes Pending Prescriptions Disp Refills ALBUTEROL SULFATE HFA 90 MCG/ACTUATION AEROSOL INHALER 18 g 11 Sig: Inhale 2 Puffs as instructed every 4 hours as needed. SANCHO: No RX INSTRUCTIONS: Patient aware RX will be sent to pharmacy. No need to notify patient. Patient states [facility] [employer] documented in this encounter [facility] 02-02-2022 Miscellaneous Notes Last seen [facility] 08/15/21. Next appt with pcp 03/13/22. Patient has been identified by name and date of : Yes Pending Prescriptions Disp Refills METFORMIN 500 MG TABLET 120 tablet 11 Sig: Take 2 tablets by mouth twice daily with meals. Take one additional 500 mg tab with breakfast or lunch until BS less than 250 SANCHO: No GLIMEPIRIDE 4 MG TABLET 30 tablet 11 Sig: Take 1 tablet by mouth daily with breakfast. Dose change, take one daily SANCHO: No MONTELUKAST 10 MG TABLET 30 tablet 11 Sig: Take 1 tablet by mouth daily at bedtime. SANCHO: No RX INSTRUCTIONS: Completely out of meds Patient aware RX will be sent to pharmacy. No need to notify patient. Miryam Rodrigues documented in this encounter [facility] 02-01-2022 Miscellaneous Notes Pharmacy notified. Images from the original note were not included. Approved Prior authorization approved Payer: [facility] Approved. Approval Details Authorized from January 02, 2022 to February 01, 2023 Electronic appeal: Not supported View History Medication Being Authorized Albuterol Sulfate 1.25 mg/3 mL nebulizer solution PA completed and waiting for response. Electronic PA requested. PRIOR AUTHORIZATION Medication for Prior Authorization: Albuterol Sulfate Nebulizer Solution Other formulary meds available : NO-unknown Insurance Company: [facility] [employer] phone number: Patient insurance ID number: [id number] Suze Miller LPN documented in this encounter [facility] 01-31-2022 Miscellaneous Notes Form signed by Dr. Villarreal, and faxed back to [facility] Pt is calling to check on status of AEP form. Suze Miller LPN Received form from [facility]. Form is at nurse's pod to fill out and sign. Patient calling with update. She reports that her [employer] company is faxing over an [facility] medical form to Dr. Villarreal's office today. Patient requesting Dr. Villarreal complete form and fax back to number provider today, if possible. Patient states this is so her electric does not get shut off due to patient wears CPAP. Please contact patient once form completed and faxed back. Thank you. Patient called in needing a letter stating she is on CPAP Machine for the e(ye)BRAIN. The e(ye[employer]BRAIN is threatening to shut off the electric by Sunday if they do not have proof of her needing her CPAP. Please assist. Nuzhat Hardin documented in this encounter [facility] 01-30-2022 Miscellaneous Notes Spoke with patient regarding message. Patient is requesting prescription for DDM brand test strips (True Metrix test strips). Order pending Patient has been identified by name and date of : Yes Patient asking for Trulicity test strips RX INSTRUCTIONS: Patient aware RX will be sent to pharmacy. No need to notify patient. Sherie Lazcano documented in this encounter [facility] 01-28-2022 Miscellaneous Notes Patient has been identified by name and date of : Yes Last office visit in this department: 08/15/2021 RX INSTRUCTIONS: Patient aware RX will be sent to pharmacy. No need to notify patient. Patient phones requesting refills as follows: Pending Prescriptions Disp Refills ALBUTEROL SULFATE 1.25 MG/3 ML SOLUTION FOR NEBULIZATION 75 mL 5 Sig: Use 1 Ampule via nebulizer every 4 hours as needed for wheezing/shortness of breath. SANCHO: No Please review and advise. Nuzhat Hardin documented in this encounter [facility] 11-23-2021 Miscellaneous Notes The following approved medication requests have been transmitted electronically. Signed Prescriptions Disp Refills pramipexole (MIRAPEX) 1 mg tablet 30 tablet 3 Sig: Take 1 tablet by mouth daily at bedtime. SANCHO: No Authorizing Provider: RODRI VILLARREAL naproxen (NAPROSYN) 500 mg tablet 60 tablet 3 Sig: Take 1 tablet by mouth twice daily as needed (for pain/inflammation). Take with food. SANCHO: No Authorizing Provider: RODRI VILLARREAL SUMAtriptan (IMITREX) 25 mg tablet 27 tablet 1 Sig: Take 1 tablet by mouth at onset of headache and may repeat in 2 hrs if needed. SANCHO: No Authorizing Provider: RODRI VILLARREAL acetaminophen-codeine (TYLENOL-CODEINE #3) 300-30 mg per tablet 30 tablet 0 Sig: Take 1 tablet by mouth every 4 hours as needed for pain for up to 5 days. Uses as needed for severe pain. RAYO Class: C-III SANCHO: No Authorizing Provider: RODRI VILLARREAL loratadine (CLARITIN) 10 mg tablet 30 tablet 3 Sig: Take 1 tablet by mouth once daily. SANCHO: No Authorizing Provider: RODRI VILLARREAL MD Last OV: 08/15/2021 Next OV: 03/13/2022 documented in this encounter [facility] documented as of this encounter (statuses as of 01/30/2022) [facility] History of Past illness Narrative* Problem Noted Date Resolved Date Left knee pain 12/11/2016 03/11/2018 Osteoarthritis of left knee 12/11/201602/16 Hip tendonitis 12/15/2013 03/11/2018 Right hip pain 12/15/2013 03/11/2018 Mild dysplasia of cervix 12/26/2011 018 Personal history of pre-term labor 11/07/2006 03/11/2018 Supervision of other high-risk (V23.89) 09/26/2006 12/12/2011 Supervision of other normal 2006 12/12/2011 documented as of this encounter (statuses as of 01/30/2022) [facility] History of Past illness Narrative* Problem Noted Date Resolved Date Left knee pain 12/11/2016 03/11/2018 Osteoarthritis of left knee 12/11/201602/16 Hip tendonitis 12/15/2013 03/11/2018 Right hip pain 12/15/2013 03/11/2018 Mild dysplasia of cervix 12/26/2011 018 Personal history of pre-term labor 11/07/2006 03/11/2018 Supervision of other high-risk (V23.89) 09/26/2006 12/12/2011 Supervision of other normal 2006 12/12/2011 documented as of this encounter (statuses as of 01/31/2022) [facility] History of Past illness Narrative* Problem Noted Date Resolved Date Left knee pain 12/11/2016 03/11/2018 Osteoarthritis of left knee 12/11/201602/16 Hip tendonitis 12/15/2013 03/11/2018 Right hip pain 12/15/2013 03/11/2018 Mild dysplasia of cervix 12/26/2011 018 Personal history of pre-term labor 11/07/2006 03/11/2018 Supervision of other high-risk (V23.89) 09/26/2006 12/12/2011 Supervision of other normal 2006 12/12/2011 documented as of this encounter (statuses as of 01/31/2022) [facility] History of Past illness Narrative* Problem Noted Date Resolved Date Left knee pain 12/11/2016 03/11/2018 Osteoarthritis of left knee 12/11/201602/16 Hip tendonitis 12/15/2013 03/11/2018 Right hip pain 12/15/2013 03/11/2018 Mild dysplasia of cervix 12/26/2011 018 Personal history of pre-term labor 11/07/2006 03/11/2018 Supervision of other high-risk (V23.89) 09/26/2006 12/12/2011 Supervision of other normal 2006 12/12/2011 documented as of this encounter (statuses as of 02/01/2022) [facility] History of Past illness Narrative* Problem Noted Date Resolved Date Left knee pain 12/11/2016 03/11/2018 Osteoarthritis of left knee 12/11/201602/16 Hip tendonitis 12/15/2013 03/11/2018 Right hip pain 12/15/2013 03/11/2018 Mild dysplasia of cervix 12/26/2011 018 Personal history of pre-term labor 11/07/2006 03/11/2018 Supervision of other high-risk (V23.89) 09/26/2006 12/12/2011 Supervision of other normal 2006 12/12/2011 documented as of this encounter (statuses as of 02/02/2022) [facility] History of Past illness Narrative* Problem Noted Date Resolved Date Left knee pain 12/11/2016 03/11/2018 Osteoarthritis of left knee 12/11/201602/16 Hip tendonitis 12/15/2013 03/11/2018 Right hip pain 12/15/2013 03/11/2018 Mild dysplasia of cervix 12/26/2011 018 Personal history of pre-term labor 11/07/2006 03/11/2018 Supervision of other high-risk (V23.89) 09/26/2006 12/12/2011 Supervision of other normal 2006 12/12/2011 documented as of this encounter (statuses as of 03/02/2022) [facility] History of Past illness Narrative* Problem Noted Date Resolved Date Left knee pain 12/11/2016 03/11/2018 Osteoarthritis of left knee 12/11/201602/16 Hip tendonitis 12/15/2013 03/11/2018 Right hip pain 12/15/2013 03/11/2018 Mild dysplasia of cervix 12/26/2011 018 Personal history of pre-term labor 11/07/2006 03/11/2018 Supervision of other high-risk (V23.89) 09/26/2006 12/12/2011 Supervision of other normal 2006 12/12/2011 documented as of this encounter (statuses as of 03/03/2022) [facility] History of Past illness Narrative* Problem Noted Date Resolved Date Left knee pain 12/11/2016 03/11/2018 Osteoarthritis of left knee 12/11/201602/16 Hip tendonitis 12/15/2013 03/11/2018 Right hip pain 12/15/2013 03/11/2018 Mild dysplasia of cervix 12/26/2011 018 Personal history of pre-term labor 11/07/2006 03/11/2018 Supervision of other high-risk (V23.89) 09/26/2006 12/12/2011 Supervision of other normal 2006 12/12/2011 documented as of this encounter (statuses as of 03/14/2022) [facility] History of Past illness Narrative* Problem Noted Date Resolved Date Left knee pain 12/11/2016 03/11/2018 Osteoarthritis of left knee 12/11/201602/16 Hip tendonitis 12/15/2013 03/11/2018 Right hip pain 12/15/2013 03/11/2018 Mild dysplasia of cervix 12/26/2011 018 Personal history of pre-term labor 11/07/2006 03/11/2018 Supervision of other high-risk (V23.89) 09/26/2006 12/12/2011 Supervision of other normal 2006 12/12/2011 documented as of this encounter (statuses as of 03/27/2022) [facility] History of Past illness Narrative* Problem Noted Date Resolved Date Left knee pain 12/11/2016 03/11/2018 Osteoarthritis of left knee 12/11/201602/16 Hip tendonitis 12/15/2013 03/11/2018 Right hip pain 12/15/2013 03/11/2018 Mild dysplasia of cervix 12/26/2011 018 Personal history of pre-term labor 11/07/2006 03/11/2018 Supervision of other high-risk (V23.89) 09/26/2006 12/12/2011 Supervision of other normal 2006 12/12/2011 documented as of this encounter (statuses as of 03/28/2022) [facility] History of Past illness Narrative* Problem Noted Date Resolved Date Left knee pain 12/11/2016 03/11/2018 Osteoarthritis of left knee 12/11/201602/16 Hip tendonitis 12/15/2013 03/11/2018 Right hip pain 12/15/2013 03/11/2018 Mild dysplasia of cervix 12/26/2011 018 Personal history of pre-term labor 11/07/2006 03/11/2018 Supervision of other high-risk (V23.89) 09/26/2006 12/12/2011 Supervision of other normal 2006 12/12/2011 documented as of this encounter (statuses as of 04/18/2022) [facility] History of Past illness Narrative* Problem Noted Date Resolved Date Left knee pain 12/11/2016 03/11/2018 Osteoarthritis of left knee 12/11/201602/16 Hip tendonitis 12/15/2013 03/11/2018 Right hip pain 12/15/2013 03/11/2018 Mild dysplasia of cervix 12/26/2011 018 Personal history of pre-term labor 11/07/2006 03/11/2018 Supervision of other high-risk (V23.89) 09/26/2006 12/12/2011 Supervision of other normal 2006 12/12/2011 documented as of this encounter (statuses as of 04/25/2022) [facility] History of Past illness Narrative* Problem Noted Date Resolved Date Left knee pain 12/11/2016 03/11/2018 Osteoarthritis of left knee 12/11/201602/16 Hip tendonitis 12/15/2013 03/11/2018 Right hip pain 12/15/2013 03/11/2018 Mild dysplasia of cervix 12/26/2011 018 Personal history of pre-term labor 11/07/2006 03/11/2018 Supervision of other high-risk (V23.89) 09/26/2006 12/12/2011 Supervision of other normal 2006 12/12/2011 documented as of this encounter (statuses as of 04/26/2022) [facility] History of Past illness Narrative* Problem Noted Date Resolved Date Left knee pain 12/11/2016 03/11/2018 Osteoarthritis of left knee 12/11/201602/16 Hip tendonitis 12/15/2013 03/11/2018 Right hip pain 12/15/2013 03/11/2018 Mild dysplasia of cervix 12/26/2011 018 Personal history of pre-term labor 11/07/2006 03/11/2018 Supervision of other high-risk (V23.89) 09/26/2006 12/12/2011 Supervision of other normal 2006 12/12/2011 documented as of this encounter (statuses as of 05/29/2022) [facility] History of Past illness Narrative* Problem Noted Date Resolved Date Left knee pain 12/11/2016 03/11/2018 Osteoarthritis of left knee 12/11/201602/16 Hip tendonitis 12/15/2013 03/11/2018 Right hip pain 12/15/2013 03/11/2018 Mild dysplasia of cervix 12/26/2011 018 Personal history of pre-term labor 11/07/2006 03/11/2018 Supervision of other high-risk (V23.89) 09/26/2006 12/12/2011 Supervision of other normal 2006 12/12/2011 documented as of this encounter (statuses as of 05/30/2022) [facility] History of Past illness Narrative* Problem Noted Date Resolved Date Left knee pain 12/11/2016 03/11/2018 Osteoarthritis of left knee 12/11/201602/16 Hip tendonitis 12/15/2013 03/11/2018 Right hip pain 12/15/2013 03/11/2018 Mild dysplasia of cervix 12/26/2011 018 Personal history of pre-term labor 11/07/2006 03/11/2018 Supervision of other high-risk (V23.89) 09/26/2006 12/12/2011 Supervision of other normal 2006 12/12/2011 documented as of this encounter (statuses as of 06/20/2022) [facility] History of Past illness Narrative* Problem Noted Date Resolved Date Left knee pain 12/11/2016 03/11/2018 Osteoarthritis of left knee 12/11/201602/16 Hip tendonitis 12/15/2013 03/11/2018 Right hip pain 12/15/2013 03/11/2018 Mild dysplasia of cervix 12/26/2011 018 Personal history of pre-term labor 11/07/2006 03/11/2018 Supervision of other high-risk (V23.89) 09/26/2006 12/12/2011 Supervision of other normal 2006 12/12/2011 documented as of this encounter (statuses as of 07/11/2022) [facility] History of Past illness Narrative* Problem Noted Date Resolved Date Left knee pain 12/11/2016 03/11/2018 Osteoarthritis of left knee 12/11/201602/16 Hip tendonitis 12/15/2013 03/11/2018 Right hip pain 12/15/2013 03/11/2018 Mild dysplasia of cervix 12/26/2011 018 Personal history of pre-term labor 11/07/2006 03/11/2018 Supervision of other high-risk (V23.89) 09/26/2006 12/12/2011 Supervision of other normal 2006 12/12/2011 documented as of this encounter (statuses as of 07/12/2022) [facility] History of Past illness Narrative* Problem Noted Date Resolved Date Left knee pain 12/11/2016 03/11/2018 Osteoarthritis of left knee 12/11/201602/16 Hip tendonitis 12/15/2013 03/11/2018 Right hip pain 12/15/2013 03/11/2018 Mild dysplasia of cervix 12/26/2011 018 Personal history of pre-term labor 11/07/2006 03/11/2018 Supervision of other high-risk (V23.89) 09/26/2006 12/12/2011 Supervision of other normal 2006 12/12/2011 documented as of this encounter (statuses as of 09/04/2022) [facility] History of Past illness Narrative* Problem Noted Date Resolved Date Left knee pain 12/11/2016 03/11/2018 Osteoarthritis of left knee 12/11/201602/16 Hip tendonitis 12/15/2013 03/11/2018 Right hip pain 12/15/2013 03/11/2018 Mild dysplasia of cervix 12/26/2011 018 Personal history of pre-term labor 11/07/2006 03/11/2018 Supervision of other high-risk (V23.89) 09/26/2006 12/12/2011 Supervision of other normal 2006 12/12/2011 documented as of this encounter (statuses as of 09/06/2022) [facility] History of Past illness Narrative* Problem Noted Date Resolved Date Left knee pain 12/11/2016 03/11/2018 Osteoarthritis of left knee 12/11/201602/16 Hip tendonitis 12/15/2013 03/11/2018 Right hip pain 12/15/2013 03/11/2018 Mild dysplasia of cervix 12/26/2011 018 Personal history of pre-term labor 11/07/2006 03/11/2018 Supervision of other high-risk (V23.89) 09/26/2006 12/12/2011 Supervision of other normal 2006 12/12/2011 documented as of this encounter (statuses as of 09/15/2022) [facility] History of Past illness Narrative* Problem Noted Date Resolved Date Left knee pain 12/11/2016 03/11/2018 Osteoarthritis of left knee 12/11/201602/16 Hip tendonitis 12/15/2013 03/11/2018 Right hip pain 12/15/2013 03/11/2018 Mild dysplasia of cervix 12/26/2011 018 Personal history of pre-term labor 11/07/2006 03/11/2018 Supervision of other high-risk (V23.89) 09/26/2006 12/12/2011 Supervision of other normal 2006 12/12/2011 documented as of this encounter (statuses as of 09/18/2022) [facility] History of Past illness Narrative* Problem Noted Date Resolved Date Left knee pain 12/11/2016 03/11/2018 Osteoarthritis of left knee 12/11/201602/16 Hip tendonitis 12/15/2013 03/11/2018 Right hip pain 12/15/2013 03/11/2018 Mild dysplasia of cervix 12/26/2011 018 Personal history of pre-term labor 11/07/2006 03/11/2018 Supervision of other high-risk (V23.89) 09/26/2006 12/12/2011 Supervision of other normal 2006 12/12/2011 documented as of this encounter (statuses as of 09/22/2022) [facility] History of Past illness Narrative* Problem Noted Date Resolved Date Left knee pain 12/11/2016 03/11/2018 Osteoarthritis of left knee 12/11/201602/16 Hip tendonitis 12/15/2013 03/11/2018 Right hip pain 12/15/2013 03/11/2018 Mild dysplasia of cervix 12/26/2011 018 Personal history of pre-term labor 11/07/2006 03/11/2018 Supervision of other high-risk (V23.89) 09/26/2006 12/12/2011 Supervision of other normal 2006 12/12/2011 documented as of this encounter (statuses as of 09/23/2022) [facility] History of Past illness Narrative* Problem Noted Date Resolved Date Left knee pain 12/11/2016 03/11/2018 Osteoarthritis of left knee 12/11/201602/16 Hip tendonitis 12/15/2013 03/11/2018 Right hip pain 12/15/2013 03/11/2018 Mild dysplasia of cervix 12/26/2011 018 Personal history of pre-term labor 11/07/2006 03/11/2018 Supervision of other high-risk (V23.89) 09/26/2006 12/12/2011 Supervision of other normal 2006 12/12/2011 documented as of this encounter (statuses as of 09/26/2022) [facility] History of Past illness Narrative* Problem Noted Date Resolved Date Left knee pain 12/11/2016 03/11/2018 Osteoarthritis of left knee 12/11/201602/16 Hip tendonitis 12/15/2013 03/11/2018 Right hip pain 12/15/2013 03/11/2018 Mild dysplasia of cervix 12/26/2011 018 Personal history of pre-term labor 11/07/2006 03/11/2018 Supervision of other high-risk (V23.89) 09/26/2006 12/12/2011 Supervision of other normal 2006 12/12/2011 documented as of this encounter (statuses as of 09/29/2022) [facility] History of Past illness Narrative* Problem Noted Date Resolved Date Left knee pain 12/11/2016 03/11/2018 Osteoarthritis of left knee 12/11/201602/16 Hip tendonitis 12/15/2013 03/11/2018 Right hip pain 12/15/2013 03/11/2018 Mild dysplasia of cervix 12/26/2011 018 Personal history of pre-term labor 11/07/2006 03/11/2018 Supervision of other high-risk (V23.89) 09/26/2006 12/12/2011 Supervision of other normal 2006 12/12/2011 documented as of this encounter (statuses as of 10/05/2022) [facility] History of Past illness Narrative* Problem Noted Date Resolved Date Left knee pain 12/11/2016 03/11/2018 Osteoarthritis of left knee 12/11/201602/16 Hip tendonitis 12/15/2013 03/11/2018 Right hip pain 12/15/2013 03/11/2018 Mild dysplasia of cervix 12/26/2011 018 Personal history of pre-term labor 11/07/2006 03/11/2018 Supervision of other high-risk (V23.89) 09/26/2006 12/12/2011 Supervision of other normal 2006 12/12/2011 documented as of this encounter (statuses as of 11/02/2022) [facility] History of Past illness Narrative* Problem Noted Date Resolved Date Left knee pain 12/11/2016 03/11/2018 Osteoarthritis of left knee 12/11/201602/16 Hip tendonitis 12/15/2013 03/11/2018 Right hip pain 12/15/2013 03/11/2018 Mild dysplasia of cervix 12/26/2011 018 Personal history of pre-term labor 11/07/2006 03/11/2018 Supervision of other high-risk (V23.89) 09/26/2006 12/12/2011 Supervision of other normal 2006 12/12/2011 documented as of this encounter (statuses as of 11/23/2022) [facility] History of Past illness Narrative* Problem Noted Date Resolved Date Left knee pain 12/11/2016 03/11/2018 Osteoarthritis of left knee 12/11/201602/16 Hip tendonitis 12/15/2013 03/11/2018 Right hip pain 12/15/2013 03/11/2018 Mild dysplasia of cervix 12/26/2011 018 Personal history of pre-term labor 11/07/2006 03/11/2018 Supervision of other high-risk (V23.89) 09/26/2006 12/12/2011 Supervision of other normal 2006 12/12/2011 documented as of this encounter (statuses as of 01/01/2023) [facility] History of Past illness Narrative* Problem Noted Date Resolved Date Left knee pain 12/11/2016 03/11/2018 Osteoarthritis of left knee 12/11/201602/16 Hip tendonitis 12/15/2013 03/11/2018 Right hip pain 12/15/2013 03/11/2018 Mild dysplasia of cervix 12/26/2011 018 Personal history of pre-term labor 11/07/2006 03/11/2018 Supervision of other high-risk (V23.89) 09/26/2006 12/12/2011 Supervision of other normal 2006 12/12/2011 documented as of this encounter (statuses as of 01/01/2023) [facility] History of Past illness Narrative* Problem Noted Date Resolved Date Left knee pain 12/11/2016 03/11/2018 Osteoarthritis of left knee 12/11/201602/16 Hip tendonitis 12/15/2013 03/11/2018 Right hip pain 12/15/2013 03/11/2018 Mild dysplasia of cervix 12/26/2011 018 Personal history of pre-term labor 11/07/2006 03/11/2018 Supervision of other high-risk (V23.89) 09/26/2006 12/12/2011 Supervision of other normal 2006 12/12/2011 documented as of this encounter (statuses as of 01/11/2023) [facility]-2017 History of Past illness Narrative* Problem Noted Date Resolved Date Left knee pain 12/11/2016 03/11/2018 Osteoarthritis of left knee 12/11/201602/16 Hip tendonitis 12/15/2013 03/11/2018 Right hip pain 12/15/2013 03/11/2018 Mild dysplasia of cervix 12/26/2011 018 Personal history of pre-term labor 11/07/2006 03/11/2018 Supervision of other high-risk (V23.89) 09/26/2006 12/12/2011 Supervision of other normal 2006 12/12/2011 documented as of this encounter (statuses as of 01/19/2023) [facility]2017 History of Past illness Narrative* Problem Noted Date Resolved Date Left knee pain 12/11/2016 03/11/2018 Osteoarthritis of left knee 12/11/201602/16 Hip tendonitis 12/15/2013 03/11/2018 Right hip pain 12/15/2013 03/11/2018 Mild dysplasia of cervix 12/26/2011 018 Personal history of pre-term labor 11/07/2006 03/11/2018 Supervision of other high-risk (V23.89) 09/26/2006 12/12/2011 Supervision of other normal 2006 12/12/2011 documented as of this encounter (statuses as of 02/13/2023) [facility] History of Past illness Narrative* Problem Noted Date Resolved Date Left knee pain 12/11/2016 03/11/2018 Osteoarthritis of left knee 12/11/201602/16 Hip tendonitis 12/15/2013 03/11/2018 Right hip pain 12/15/2013 03/11/2018 Mild dysplasia of cervix 12/26/2011 018 Personal history of pre-term labor 11/07/2006 03/11/2018 Supervision of other high-risk (V23.89) 09/26/2006 12/12/2011 Supervision of other normal 2006 12/12/2011 documented as of this encounter (statuses as of 02/15/2023) [facility] History of Past illness Narrative* Problem Noted Date Resolved Date Left knee pain 12/11/2016 03/11/2018 Osteoarthritis of left knee 12/11/201602/16 Hip tendonitis 12/15/2013 03/11/2018 Right hip pain 12/15/2013 03/11/2018 Mild dysplasia of cervix 12/26/2011 018 Personal history of pre-term labor 11/07/2006 03/11/2018 Supervision of other high-risk (V23.89) 09/26/2006 12/12/2011 Supervision of other normal 2006 12/12/2011 documented as of this encounter (statuses as of 02/20/2023) [facility] History of Past illness Narrative* Problem Noted Date Resolved Date Left knee pain 12/11/2016 03/11/2018 Osteoarthritis of left knee 12/11/201602/16 Hip tendonitis 12/15/2013 03/11/2018 Right hip pain 12/15/2013 03/11/2018 Mild dysplasia of cervix 12/26/2011 018 Personal history of pre-term labor 11/07/2006 03/11/2018 Supervision of other high-risk (V23.89) 09/26/2006 12/12/2011 Supervision of other normal 2006 12/12/2011 documented as of this encounter (statuses as of 02/20/2023) [facility] History of Past illness Narrative* Problem Noted Date Resolved Date Left knee pain 12/11/2016 03/11/2018 Osteoarthritis of left knee 12/11/201602/16 Hip tendonitis 12/15/2013 03/11/2018 Right hip pain 12/15/2013 03/11/2018 Mild dysplasia of cervix 12/26/2011 018 Personal history of pre-term labor 11/07/2006 03/11/2018 Supervision of other high-risk (V23.89) 09/26/2006 12/12/2011 Supervision of other normal 2006 12/12/2011 documented as of this encounter (statuses as of 03/07/2023) [facility] History of Past illness Narrative* Problem Noted Date Resolved Date Left knee pain 12/11/2016 03/11/2018 Osteoarthritis of left knee 12/11/201602/16 Hip tendonitis 12/15/2013 03/11/2018 Right hip pain 12/15/2013 03/11/2018 Mild dysplasia of cervix 12/26/2011 018 Personal history of pre-term labor 11/07/2006 03/11/2018 Supervision of other high-risk (V23.89) 09/26/2006 12/12/2011 Supervision of other normal 2006 12/12/2011 documented as of this encounter (statuses as of 03/15/2023) [facility] History of Past illness Narrative* Problem Noted Date Diagnosed Date Resolved Date Left knee pain 12/11/2016 03/11/2018 Osteoarthritis of left knee 12/11/2016 03/11/2018 Hip tendonitis 12/15/2013 03/11/2018 Right hip pain 12/15/2013 03/11/2018 Mild dysplasia of cervix 12/26/2011 Personal history of pre-term labor 11/07/2006 03/11/2018 Supervision of other high-ri sk (V23.89) 09/26/2006 12/12/2011 Supervision of other normal 2006 12/12/2011 documented as of this encounter (statuses as of 04/16/2023) [facility]2017 History of Past illness Narrative* Problem Noted Date Diagnosed Date Resolved Date Left knee pain 12/11/2016 03/11/2018 Osteoarthritis of left knee 12/11/2016 03/11/2018 Hip tendonitis 12/15/2013 03/11/2018 Right hip pain 12/15/2013 03/11/2018 Mild dysplasia of cervix 12/26/2011 Personal history of pre-term labor 11/07/2006 03/11/2018 Supervision of other high-ri sk (V23.89) 09/26/2006 12/12/2011 Supervision of other normal 2006 12/12/2011 documented as of this encounter (statuses as of 04/24/2023) [facility]2017 History of Past illness Narrative* Problem Noted Date Diagnosed Date Resolved Date Left knee pain 12/11/2016 03/11/2018 Osteoarthritis of left knee 12/11/2016 03/11/2018 Hip tendonitis 12/15/2013 03/11/2018 Right hip pain 12/15/2013 03/11/2018 Mild dysplasia of cervix 12/26/2011 Personal history of pre-term labor 11/07/2006 03/11/2018 Supervision of other high-ri sk (V23.89) 09/26/2006 12/12/2011 Supervision of other normal 2006 12/12/2011 documented as of this encounter (statuses as of 05/02/2023) [facility] History of Past illness Narrative* Problem Noted Date Diagnosed Date Resolved Date Left knee pain 12/11/2016 03/11/2018 Osteoarthritis of left knee 12/11/2016 03/11/2018 Hip tendonitis 12/15/2013 03/11/2018 Right hip pain 12/15/2013 03/11/2018 Mild dysplasia of cervix 12/26/2011 Personal history of pre-term labor 11/07/2006 03/11/2018 Supervision of other high-ri sk (V23.89) 09/26/2006 12/12/2011 Supervision of other normal 2006 12/12/2011 documented as of this encounter (statuses as of 05/02/2023) [facility]2017 History of Past illness Narrative* Problem Noted Date Diagnosed Date Resolved Date Left knee pain 12/11/2016 03/11/2018 Osteoarthritis of left knee 12/11/2016 03/11/2018 Hip tendonitis 12/15/2013 03/11/2018 Right hip pain 12/15/2013 03/11/2018 Mild dysplasia of cervix 12/26/2011 Personal history of pre-term labor 11/07/2006 03/11/2018 Supervision of other high-ri sk (V23.89) 09/26/2006 12/12/2011 Supervision of other normal 2006 12/12/2011 documented as of this encounter (statuses as of 05/04/2023) [address]27-2017 History of Past illness Narrative* Problem Noted Date Diagnosed Date Resolved Date Left knee pain 12/11/2016 03/11/2018 Osteoarthritis of left knee 12/11/2016 03/11/2018 Hip tendonitis 12/15/2013 03/11/2018 Right hip pain 12/15/2013 03/11/2018 Mild dysplasia of cervix 12/26/2011 Personal history of pre-term labor 11/07/2006 03/11/2018 Supervision of other high-ri sk (V23.89) 09/26/2006 12/12/2011 Supervision of other normal 2006 12/12/2011 documented as of this encounter (statuses as of 05/08/2023) [address]27-2017 History of Past illness Narrative* Problem Noted Date Diagnosed Date Resolved Date Left knee pain 12/11/2016 03/11/2018 Osteoarthritis of left knee 12/11/2016 03/11/2018 Hip tendonitis 12/15/2013 03/11/2018 Right hip pain 12/15/2013 03/11/2018 Mild dysplasia of cervix 12/26/2011 Personal history of pre-term labor 11/07/2006 03/11/2018 Supervision of other high-ri sk (V23.89) 09/26/2006 12/12/2011 Supervision of other normal 2006 12/12/2011 documented as of this encounter (statuses as of 06/01/2023) [address]27-2017 History of Past illness Narrative* Problem Noted Date Diagnosed Date Resolved Date Left knee pain 12/11/2016 03/11/2018 Osteoarthritis of left knee 12/11/2016 03/11/2018 Hip tendonitis 12/15/2013 03/11/2018 Right hip pain 12/15/2013 03/11/2018 Mild dysplasia of cervix 12/26/2011 Personal history of pre-term labor 11/07/2006 03/11/2018 Supervision of other high-ri sk (V23.89) 09/26/2006 12/12/2011 Supervision of other normal 2006 12/12/2011 documented as of this encounter (statuses as of 06/30/2023) [facility]2017 History of Past illness Narrative* Problem Noted Date Diagnosed Date Resolved Date Left knee pain 12/11/2016 03/11/2018 Osteoarthritis of left knee 12/11/2016 03/11/2018 Hip tendonitis 12/15/2013 03/11/2018 Right hip pain 12/15/2013 03/11/2018 Mild dysplasia of cervix 12/26/2011 Personal history of pre-term labor 11/07/2006 03/11/2018 Supervision of other high-ri sk (V23.89) 09/26/2006 12/12/2011 Supervision of other normal 2006 12/12/2011 documented as of this encounter (statuses as of 07/02/2023) [facility]2017 History of Past illness Narrative* Problem Noted Date Diagnosed Date Resolved Date Left knee pain 12/11/2016 03/11/2018 Osteoarthritis of left knee 12/11/2016 03/11/2018 Hip tendonitis 12/15/2013 03/11/2018 Right hip pain 12/15/2013 03/11/2018 Mild dysplasia of cervix 12/26/2011 Personal history of pre-term labor 11/07/2006 03/11/2018 Supervision of other high-ri sk (V23.89) 09/26/2006 12/12/2011 Supervision of other normal 2006 12/12/2011 documented as of this encounter (statuses as of 07/13/2023) [facility]2017 History of Past illness Narrative* Problem Noted Date Diagnosed Date Resolved Date Left knee pain 12/11/2016 03/11/2018 Osteoarthritis of left knee 12/11/2016 03/11/2018 Hip tendonitis 12/15/2013 03/11/2018 Right hip pain 12/15/2013 03/11/2018 Mild dysplasia of cervix 12/26/2011 Personal history of pre-term labor 11/07/2006 03/11/2018 Supervision of other high-ri sk (V23.89) 09/26/2006 12/12/2011 Supervision of other normal 2006 12/12/2011 documented as of this encounter (statuses as of 07/17/2023) [facility]2017 History of Past illness Narrative* Problem Noted Date Diagnosed Date Resolved Date Left knee pain 12/11/2016 03/11/2018 Osteoarthritis of left knee 12/11/2016 03/11/2018 Hip tendonitis 12/15/2013 03/11/2018 Right hip pain 12/15/2013 03/11/2018 Mild dysplasia of cervix 12/26/2011 Personal history of pre-term labor 11/07/2006 03/11/2018 Supervision of other high-ri sk (V23.89) 09/26/2006 12/12/2011 Supervision of other normal 2006 12/12/2011 documented as of this encounter (statuses as of 07/22/2023) [facility]2017 History of Past illness Narrative* Problem Noted Date Diagnosed Date Resolved Date Left knee pain 12/11/2016 03/11/2018 Osteoarthritis of left knee 12/11/2016 03/11/2018 Hip tendonitis 12/15/2013 03/11/2018 Right hip pain 12/15/2013 03/11/2018 Mild dysplasia of cervix 12/26/2011 Personal history of pre-term labor 11/07/2006 03/11/2018 Supervision of other high-ri sk (V23.89) 09/26/2006 12/12/2011 Supervision of other normal 2006 12/12/2011 documented as of this encounter (statuses as of 07/24/2023) [facility]2017 History of Past illness Narrative* Problem Noted Date Diagnosed Date Resolved Date Left knee pain 12/11/2016 03/11/2018 Osteoarthritis of left knee 12/11/2016 03/11/2018 Hip tendonitis 12/15/2013 03/11/2018 Right hip pain 12/15/2013 03/11/2018 Mild dysplasia of cervix 12/26/2011 Personal history of pre-term labor 11/07/2006 03/11/2018 Supervision of other high-ri sk (V23.89) 09/26/2006 12/12/2011 Supervision of other normal 2006 12/12/2011 documented as of this encounter (statuses as of 07/24/2023) [facility]2017 History of Past illness Narrative* Problem Noted Date Diagnosed Date Resolved Date Left knee pain 12/11/2016 03/11/2018 Osteoarthritis of left knee 12/11/2016 03/11/2018 Hip tendonitis 12/15/2013 03/11/2018 Right hip pain 12/15/2013 03/11/2018 Mild dysplasia of cervix 12/26/2011 Personal history of pre-term labor 11/07/2006 03/11/2018 Supervision of other high-ri sk (V23.89) 09/26/2006 12/12/2011 Supervision of other normal 2006 12/12/2011 documented as of this encounter (statuses as of 07/27/2023) [facility]2017 History of Past illness Narrative* Problem Noted Date Diagnosed Date Resolved Date Left knee pain 12/11/2016 03/11/2018 Osteoarthritis of left knee 12/11/2016 03/11/2018 Hip tendonitis 12/15/2013 03/11/2018 Right hip pain 12/15/2013 03/11/2018 Mild dysplasia of cervix 12/26/2011 Personal history of pre-term labor 11/07/2006 03/11/2018 Supervision of other high-ri sk (V23.89) 09/26/2006 12/12/2011 Supervision of other normal 2006 12/12/2011 documented as of this encounter (statuses as of 07/31/2023) [facility]2017 History of Past illness Narrative* Problem Noted Date Diagnosed Date Resolved Date Left knee pain 12/11/2016 03/11/2018 Osteoarthritis of left knee 12/11/2016 03/11/2018 Hip tendonitis 12/15/2013 03/11/2018 Right hip pain 12/15/2013 03/11/2018 Mild dysplasia of cervix 12/26/2011 Personal history of pre-term labor 11/07/2006 03/11/2018 Supervision of other high-ri sk (V23.89) 09/26/2006 12/12/2011 Supervision of other normal 2006 12/12/2011 documented as of this encounter (statuses as of 07/31/2023) [facility]2017 History of Past illness Narrative* Problem Noted Date Diagnosed Date Resolved Date Left knee pain 12/11/2016 03/11/2018 Osteoarthritis of left knee 12/11/2016 03/11/2018 Hip tendonitis 12/15/2013 03/11/2018 Right hip pain 12/15/2013 03/11/2018 Mild dysplasia of cervix 12/26/2011 Personal history of pre-term labor 11/07/2006 03/11/2018 Supervision of other high-ri sk (V23.89) 09/26/2006 12/12/2011 Supervision of other normal 2006 12/12/2011 documented as of this encounter (statuses as of 08/07/2023) [facility]2017 History of Past illness Narrative* Problem Noted Date Diagnosed Date Resolved Date Left knee pain 12/11/2016 03/11/2018 Osteoarthritis of left knee 12/11/2016 03/11/2018 Hip tendonitis 12/15/2013 03/11/2018 Right hip pain 12/15/2013 03/11/2018 Mild dysplasia of cervix 12/26/2011 Personal history of pre-term labor 11/07/2006 03/11/2018 Supervision of other high-ri sk (V23.89) 09/26/2006 12/12/2011 Supervision of other normal 2006 12/12/2011 documented as of this encounter (statuses as of 08/07/2023) [facility]2017 History of Past illness Narrative* Problem Noted Date Diagnosed Date Resolved Date Left knee pain 12/11/2016 03/11/2018 Osteoarthritis of left knee 12/11/2016 03/11/2018 Hip tendonitis 12/15/2013 03/11/2018 Right hip pain 12/15/2013 03/11/2018 Mild dysplasia of cervix 12/26/2011 Personal history of pre-term labor 11/07/2006 03/11/2018 Supervision of other high-ri sk (V23.89) 09/26/2006 12/12/2011 Supervision of other normal 2006 12/12/2011 documented as of this encounter (statuses as of 08/08/2023) [facility]2017 History of Past illness Narrative* Problem Noted Date Diagnosed Date Resolved Date Left knee pain 12/11/2016 03/11/2018 Osteoarthritis of left knee 12/11/2016 03/11/2018 Hip tendonitis 12/15/2013 03/11/2018 Right hip pain 12/15/2013 03/11/2018 Mild dysplasia of cervix 12/26/2011 Personal history of pre-term labor 11/07/2006 03/11/2018 Supervision of other high-ri sk (V23.89) 09/26/2006 12/12/2011 Supervision of other normal 2006 12/12/2011 documented as of this encounter (statuses as of 08/08/2023) [facility]2017 History of Past illness Narrative* Problem Noted Date Diagnosed Date Resolved Date Left knee pain 12/11/2016 03/11/2018 Osteoarthritis of left knee 12/11/2016 03/11/2018 Hip tendonitis 12/15/2013 03/11/2018 Right hip pain 12/15/2013 03/11/2018 Mild dysplasia of cervix 12/26/2011 Personal history of pre-term labor 11/07/2006 03/11/2018 Supervision of other high-ri sk (V23.89) 09/26/2006 12/12/2011 Supervision of other normal 2006 12/12/2011 documented as of this encounter (statuses as of 08/21/2023) [facility]2017 History of Past illness Narrative* Problem Noted Date Diagnosed Date Resolved Date Left knee pain 12/11/2016 03/11/2018 Osteoarthritis of left knee 12/11/2016 03/11/2018 Hip tendonitis 12/15/2013 03/11/2018 Right hip pain 12/15/2013 03/11/2018 Mild dysplasia of cervix 12/26/2011 Personal history of pre-term labor 11/07/2006 03/11/2018 Supervision of other high-ri sk (V23.89) 09/26/2006 12/12/2011 Supervision of other normal 2006 12/12/2011 documented as of this encounter (statuses as of 08/22/2023) [facility] Diagnosis Moderate persistent asthma without complication Unspecified asthma [facility] Diagnosis Restless leg syndrome Restless legs syndrome (RLS) Greater trochanteric bursitis of both hips Enthesopathy of hip region Migraine without aura and without status migrainosus, not intractable Migraine without aura, without mention of intractable migraine without mention of status migrainosus Hip pain, left Pain in joint, pelvic region and thigh [facility] Diagnosis Controlled type 2 diabetes mellitus without complication, without long-term current use of insulin (HCC) Uncontrolled type 2 diabetes mellitus with hyperglycemia (HCC) Moderate persistent asthma with exacerbation Unspecified asthma, with exacerbation [facility] Diagnosis Moderate persistent asthma without complication Unspecified asthma [facility] Diagnosis Hip pain, left Pain in joint, pelvic region and thigh Lumbago Moderate persistent asthma without complication Unspecified asthma [facility] Diagnosis Restless leg syndrome Restless legs syndrome (RLS) [facility] Diagnosis Hyperlipidemia, unspecified hyperlipidemia type- Primary Controlled type 2 diabetes mellitus without complication, without long-term current use of insulin (HCC) Elevated LFTs Other abnormal blood chemistry RBC microcytosis Other abnormality of red blood cells Encounter for long-term current use of medication Thrombocytopenia (HCC) Thrombocytopenia, unspecified Iron deficiency Iron deficiency anemia, unspecified [facility] Diagnosis Lumbago Hip pain, left Pain in joint, pelvic region and thigh [facility] Diagnosis Restless leg syndrome Restless legs syndrome (RLS) [facility] Diagnosis Moderate persistent asthma without complication Unspecified asthma Lumbago Generalized abdominal pain Abdominal pain, generalized [facility] Diagnosis Migraine without aura and without status migrainosus, not intractable Migraine without aura, without mention of intractable migraine without mention of status migrainosus Lumbago [facility] Diagnosis Moderate persistent asthma without complication Unspecified [facility] Greater trochanteric bursitis of both hips Enthesopathy of hip region [facility] Diagnosis Uncontrolled type 2 diabetes mellitus with hyperglycemia (HCC)- Primary Lumbago Moderate persistent asthma without complication Unspecified asthma Hyperlipidemia, unspecified hyperlipidemia type RBC microcytosis Other abnormality of red blood cells Iron deficiency Iron deficiency anemia, unspecified [facility] Hip pain, left Pain in joint, pelvic region and thigh [facility] Diagnosis Intermittent asthma, unspecified asthma severity, unspecified whether complicated- Primary [facility] Diagnosis Encounter for screening mammogram for breast cancer [facility] Diagnosis Migraine without aura and without status migrainosus, not intractable Migraine without aura, without mention of intractable migraine without mention of status migrainosus [facility] Diagnosis MARIA TERESA on CPAP Obstructive sleep apnea (adult) (pediatric) Controlled type 2 diabetes mellitus without complication, without long-term current use of insulin (HCC) [facility]ago [facility] Diagnosis Hip pain, left Pain in joint, pelvic region and thigh [facility]ago [facility] Diagnosis Moderate persistent asthma without complication Unspecified asthma [facility] Diagnosis Greater trochanteric bursitis of both hips Enthesopathy of hip region [facility] Diagnosis Controlled type 2 diabetes mellitus without complication, without long-term current use of insulin (HCC) Moderate persistent asthma with exacerbation Unspecified asthma, with exacerbation [facility] Diagnosis Chronic radicular low back pain- Primary Thoracic or lumbosacral neuritis or radiculitis, unspecified Pain in both knees, unspecified chronicity Controlled type 2 diabetes mellitus without complication, without long-term current use of insulin ([facility]) Foot pain, bilateral Pain in limb [facility] Diagnosis Cellulitis of right lower extremity- Primary Cellulitis and abscess of leg, except foot Bilateral leg edema Edema Chronic radicular low back pain Thoracic or lumbosacral neuritis or radiculitis, unspecified Chronic pain of both knees Controlled type 2 diabetes mellitus without complication, without long-term current use of insulin (HCC) Hyperlipidemia with target LDL less than 100 Other and unspecified hyperlipidemia Iron deficiency anemia secondary to inadequate dietary iron intake Encounter for therapeutic drug monitoring [facility] Diagnosis Bilateral foot pain- Primary Pain in limb [facility] Diagnosis Rash and nonspecific skin eruption- Primary Rash and other nonspecific skin eruption Encounter for immunization Need for other specified prophylactic vaccination against single bacterial disease Screening for diabetic retinopathy Screening for other eye conditions Controlled type 2 diabetes mellitus without complication, without long-term current use of insulin ([facility]) Hyperlipidemia with target LDL less than 100 Other and unspecified hyperlipidemia Morbid obesity (HCC) Morbid obesity Restless leg syndrome Restless legs syndrome (RLS) Intermittent asthma, unspecified asthma severity, unspecified whether complicated Urinary tract infection with hematuria, site unspecified Iron deficiency anemia secondary to inadequate dietary iron intake Vitamin D deficiency Unspecified vitamin D deficiency Bilateral leg edema Edema Iron deficiency Iron deficiency anemia, unspecified Panniculitis Panniculitis, unspecified site [facility] Diagnosis Lumbago documented in [place] [facility] Diagnosis Greater trochanteric bursitis of both hips Enthesopathy of hip region [facility] Diagnosis Lumbago [facility] Diagnosis Iron deficiency anemia, unspecified iron deficiency anemia type- Primary Cellulitis of right lower extremity Cellulitis and abscess of leg, except foot Cellulitis of abdominal wall Cellulitis and abscess of trunk Bilateral leg edema Edema Vitamin D deficiency Unspecified vitamin D deficiency MARIA TERESA on CPAP Obstructive sleep apnea (adult) (pediatric) Class 3 severe obesity due to excess calories with serious comorbidity and body mass index (BMI) of 60.0 to 69.9 in adult ([facility]) Encounter for long-term current use of medication documented in this encounter [facility] note* Diagnosis Cellulitis of abdominal wall- Primary Cellulitis and abscess of trunk Cellulitis of right lower extremity Cellulitis and abscess of leg, except foot Bilateral leg edema Edema Moderate depressed bipolar I disorder ([facility]) Bipolar I disorder, most recent episode (or current) depressed, moderate [facility] Diagnosis Cellulitis of right lower extremity Cellulitis and abscess of leg, except foot Bilateral leg edema Edema [facility]* Diagnosis Class 3 severe obesity due to excess calories with serious comorbidity and body mass index (BMI) of 60.0 to 69.9 in adult ([facility])- Primary documented in this encounter [facility] note* Diagnosis Lumbago [facility] Diagnosis Cellulitis of right lower extremity Cellulitis and abscess of leg, except foot Bilateral leg edema Edema documented in this encounter [facility] note* Diagnosis Dental infection- Primary Acute apical periodontitis of pulpal origin Right wrist pain Pain in joint, forearm Penicillin allergy Personal history of allergy to penicillin documented in this encounter [facility] note* Diagnosis Lumbago documented in this encounter [facility] note* Diagnosis Hip pain, left Pain in joint, pelvic region and thigh documented in this encounter [facility] note* Diagnosis Chronic radicular low back pain- Primary Thoracic or lumbosacral neuritis or radiculitis, unspecified Hip pain, left Pain in joint, pelvic region and thigh Chronic cough Cough Intermittent asthma without complication, unspecified asthma severity documented in this encounter [facility] note* Diagnosis Chronic radicular low back pain Thoracic or lumbosacral neuritis or radiculitis, unspecified Hip pain, left Pain in joint, pelvic region and thigh documented in this encounter [facility] note* Diagnosis Greater trochanteric bursitis of both hips Enthesopathy of hip region documented in this encounter [facility] note* Diagnosis Chronic radicular low back pain Thoracic or lumbosacral neuritis or radiculitis, unspecified Hip pain, left Pain in joint, pelvic region and thigh documented [facility]* Diagnosis Lumbago Generalized abdominal pain Abdominal pain, generalized documented in this encounter [facility] for referral (narrative)* Diagnostic Procedure Only (Routine) - Pending Review Specialty Diagnoses / Procedures Referred By Contac t Referred To Contact [facility] IMAG[facility] Diagnoses Encounter for screening mammogram for breast cancer Procedures NEREIDA SCREENING SCREENING MAMMOGRAPHY BI 2-VIEW BREAST INC CAD Rodri Villarreal MD [address] [place] [address] [facility] [address] [place] [address] Referral ID Status Reason Start Date Expiration Date Visits Requested Visits Authorized [id number] Pending Review Auto-Generat ed Referral 10/06/2023 1 1 [facility] for referral (narrative)* Diagnostic Procedure Only (Routine) - Authorized Specialty Diagnoses / Procedures Referred By Umairac t Referred To Contact US IMAGING Diagnoses Cellulitis of right lower extremity Bilateral leg edema Procedures US DVT LOWER RIGHT DUP-SCAN XTR VEINS UNILATERAL/LIMITED STUDY Zunilda Liriano APRN.CNP [address] [place] [address] [facility] Referral ID Status Reason Start Date Expiration Date Visits Requested Visits Authorized [id number] Authorized Auto-Generat ed Referral 02/19/2023 03/20/2024 1 1 * Consult, Test, Treat (Routine) - Authorized Specialty Diagnoses / Procedures Referred By Sania t Referred To Contact Orthopedics Diagnoses Chronic radicular low back pain Chronic pain of both knees Procedures CONSULT TO ORTHOPAEDICS OFFICE/OUTPATIENT [facility] 60-74 MINUTES Zunilda Liriano APRN.CNP [address] [place] [address] Referral ID Status Reason Start Date Expiration Date Visits Requested Visits Authorized [id number] Authorized PCP Requested Referral 02/19/2023 02/19/2024 1 1 * Medication Prior Authorization - Closed Specialty Diagnoses / Procedures Referred By Contlouis t Referred To Contact Diagnoses Cellulitis of right lower extremity Bilateral leg edema Ella, Zunilda, [employer].WATCHGUARD [address] [place] [address] Referral ID Status Reason Start Date Expiration Date Visits Re quested Visits Authorized [id number] Closed 1 1 * Consult, Test, Treat (Routine) - Authorized Specialty Diagnoses / Procedures Referred By Contac t Referred To Contact Podiatry Diagnoses Controlled type 2 diabetes mellitus without complication, without long-term current use of insulin (HCC) Procedures CONSULT TO PODIATRY OFFICE/OUTPATIENT [facility] MDM 60-74 MINUTES Zunilda Liriano APRN.CNP [address] [place] [address] Referral ID Status Reason Start Date Expiration Date Visits Requested Visits Authorized [id number] Authorized PCP Requested Referral 02/19/2023 02/19/2024 1 1 [facility] for referral (narrative)* Diagnostic Procedure Only (Routine) - Pending Review Specialty Diagnoses / Procedures Referred By Contlouis t Referred To Contact XR IMAGING Diagnoses Bilateral foot pain Procedures XR FOOT GENERAL 3V AP/LAT/OBL BILATERAL RADEX FOOT COMPLETE MINIMUM 3 VIEWS Raymond Bui [address] [place] [address] Xr Imaging Referral ID Status Reason Start Date Expiration Date Visits Requested Visits Authorized [id number] Pending Review Auto-Generat ed Referral 02/20/2023 03/21/2024 1 1 [facility] for referral (narrative)* Diagnostic Procedure Only (Routine) - Closed Specialty Diagnoses / Procedures Referred By Contac t Referred To Contact US IMAGING Diagnoses Cellulitis of right lower extremity Bilateral leg edema Procedures US DVT LOWER RIGHT DUP-SCAN XTR VEINS UNILATERAL/LIMITED STUDY Zunilda Liriano APRN.CNP [address] [place] [address] [place] [address] Referral ID Status Reason Start Date Expiration Date V isits Requested Visits Authorized [id number] Closed Auto-Generate d Referral 02/19/2023 03/20/2024 1 1 [facility] for referral (narrative)* Diagnostic Procedure Only (Urgent) - Closed Specialty Diagnoses / Procedures Referred By Contac t Referred To Contact XR IMAGING Diagnoses Right wrist pain Procedures XR WRIST INJURY 4V PA/LAT/OBL/SCAPH RIGHT RADEX WRIST COMPLETE MINIMUM 3 VIEWS Mica Rodriguez APRN.WATCHGUARD [address] [place] [address] [place] [address] Referral ID Status Reason Start Date Expiration Date V isits Requested Visits Authorized [id number] Closed Auto-Generate d Referral 07/23/2023 08/21/2024 1 1 [facility] for visit Narrative* Diagnostic Procedure Only (Routine) - Closed Specialty Diagnoses / Procedures Referred By Contac t Referred To Contact US IMAGING Diagnoses Cellulitis of right lower extremity Bilateral leg edema Procedures US DVT LOWER RIGHT DUP-SCAN XTR VEINS UNILATERAL/LIMITED STUDY Zunilda Liriano APRN.WATCHGUARD [address] [place] [address] [place] [address] Referral ID Status Reason Start Date Expiration Date V isits Requested Visits Authorized [id number] Closed Auto-Generate d Referral 02/19/2023 03/20/2024 1 1 [facility] Summary Purpose Family History No Family History Records FoundNo Family History Records FoundNo Family History Records Found Advance Directives No Advanced Directives Records FoundDocuments on File Type Date Recorded Patient Transfer Knitter Expl anation Advance Directive(s) 03/26/2018 7:20 PM Reason for Referral Specialty Diagnoses / Procedures Referred By Contac t Referred To Contact Pulmonary and Critical Care Medicine / PULMONARY MEDICINE Diagnoses Intermittent asthma, unspecified asthma severity, unspecified whether complicated Procedures CONSULT TO PULM/CRITICAL CARE OFFICE/OUTPATIENT [facility] 60-74 MINUTES Johnson Rm APRN.BAND ATTACHER [address] [place] [address] Pulm [facility] [address] [place] [address] Referral ID Status Reason Start Date Expiration Date Visits Requested Visits Authorized [id number] Authorized PCP Requested Referral 2 09/05/2023 1 1 Specialty Diagnoses / Procedures Referred By Contac t Referred To Contact Diagnoses Migraine without aura and without status migrainosus, not intractable Zunilda Liriano APRN.WATCHGUARD [address] [place] [address] Referral ID Status Reason Start Date Expiration Date Visits Re quested Visits Authorized [id number] Closed 1 1 Specialty Diagnoses / Procedures Referred By Contac t Referred To Contact Diagnoses Moderate persistent asthma without complication Rodri Villarreal MD [address] [place] [address] Referral ID Status Reason Start Date Expiration Date Visits Re quested Visits Authorized [id number] Closed 1 1 Specialty Diagnoses / Procedures Referred By Contac t Referred To Contact [facility] Diagnoses Chronic radicular low back pain Pain in both knees, unspecified chronicity Procedures CONSULT TO PAIN MGT OFFICE/OUTPATIENT [facility] MDM 60-74 MINUTES Zunilda Liriano APRN.WATCHGUARD [address] [place] [address] [facility] [address] [place] [address] Referral ID Status Reason Start Date Expiration Date V isits Requested Visits Authorized [id number] Closed PCP Requested Referral 02/07/2023 02/07/2024 1 1 Specialty Diagnoses / Procedures Referred By Contac t Referred To Contact Podiatry Diagnoses Controlled type 2 diabetes mellitus without complication, without long-term current use of insulin (HCC) Foot pain, bilateral Procedures CONSULT TO PODIATRY OFFICE/OUTPATIENT [facility] MDM 60-74 MINUTES Zunilda Liriano APRN.WATCHGUARD [address] [place] [address] Referral ID Status Reason Start Date Expiration Date Visits Requested Visits Authorized [id number] Authorized PCP Requested Referral 02/07/2023 02/07/2024 1 1 Specialty Diagnoses / Procedures Referred By Contac t Referred To Contact Johnson Rm APRN.BAND ATTACHER [address] [place] [address] Referral ID Status Reason Start Date Expiration Date Visits Re quested Visits Authorized [id number] Closed 1 1 Specialty Diagnoses / Procedures Referred By Contac t Referred To Contact Diagnoses Cellulitis of right lower extremity Bilateral leg edema Rodri Villarreal MD [address] [place] [id number] Referral ID Status Reason Start Date Expiration Date Visits Re quested Visits Authorized [id number] Closed 1 1 Specialty Diagnoses / Procedures Referred By Contac t Referred To Contact Diagnoses Cellulitis of right lower extremity Bilateral leg edema Zunilda Liriano APRN.WATCHGUARD [address] [place] [address] Referral ID Status Reason Start Date Expiration Date Visits Re quested Visits Authorized [id number] Closed 1 1 Additional Source Comments INFORMATION SOURCE (unrecogn ized section and content) DATE CREATED AUTHOR AUTHOR'S ORGANIZ ATION 08/21/2021 [facility] DATE CREATED AUTHOR AUTHOR'S ORGANIZ ATION 09/27/2023 [facility] Source Comments (unrecognize d section and content) In the event this informatio n is protected by the Federal Confidentiality of Alcohol and Drug Abuse Patient Records regulations: The Federal rules restrict any use of the information to criminally investigate or prosecute any alcohol or drug abuse patient.[facility] the event this information is protected by the Federal Confidentiality of Alcohol and Drug Abuse Patient Records regulations: The Federal rules restrict any use of the information to criminally investigate or prosecute any alcohol or drug abuse patient.[facility] the event this information is protected by the Federal Confidentiality of Alcohol and Drug Abuse Patient Records regulations: The Federal rules restrict any use of the information to criminally investigate or prosecute any alcohol or drug abuse patient.[facility] the event this information is protected by the Federal Confidentiality of Alcohol and Drug Abuse Patient Records regulations: The Federal rules restrict any use of the information to criminally investigate or prosecute any alcohol or drug abuse patient.[facility] the event this information is protected by the Federal Confidentiality of Alcohol and Drug Abuse Patient Records regulations: The Federal rules restrict any use of the information to criminally investigate or prosecute any alcohol or drug abuse patient.[facility] the event this information is protected by the Federal Confidentiality of Alcohol and Drug Abuse Patient Records regulations: The Federal rules restrict any use of the information to criminally investigate or prosecute any alcohol or drug abuse patient.[facility] the event this information is protected by the Federal Confidentiality of Alcohol and Drug Abuse Patient Records regulations: The Federal rules restrict any use of the information to criminally investigate or prosecute any alcohol or drug abuse patient.[facility] the event this information is protected by the Federal Confidentiality of Alcohol and Drug Abuse Patient Records regulations: The Federal rules restrict any use of the information to criminally investigate or prosecute any alcohol or drug abuse patient.[facility] the event this information is protected by the Federal Confidentiality of Alcohol and Drug Abuse Patient Records regulations: The Federal rules restrict any use of the information to criminally investigate or prosecute any alcohol or drug abuse patient.[facility] the event this information is protected by the Federal Confidentiality of Alcohol and Drug Abuse Patient Records regulations: The Federal rules restrict any use of the information to criminally investigate or prosecute any alcohol or drug abuse patient.[facility] the event this information is protected by the Federal Confidentiality of Alcohol and Drug Abuse Patient Records regulations: The Federal rules restrict any use of the information to criminally investigate or prosecute any alcohol or drug abuse patient.[facility] the event this information is protected by the Federal Confidentiality of Alcohol and Drug Abuse Patient Records regulations: The Federal rules restrict any use of the information to criminally investigate or prosecute any alcohol or drug abuse patient.[facility] the event this information is protected by the Federal Confidentiality of Alcohol and Drug Abuse Patient Records regulations: The Federal rules restrict any use of the information to criminally investigate or prosecute any alcohol or drug abuse patient.[facility] the event this information is protected by the Federal Confidentiality of Alcohol and Drug Abuse Patient Records regulations: The Federal rules restrict any use of the information to criminally investigate or prosecute any alcohol or drug abuse patient.[facility] the event this information is protected by the Federal Confidentiality of Alcohol and Drug Abuse Patient Records regulations: The Federal rules restrict any use of the information to criminally investigate or prosecute any alcohol or drug abuse patient.[facility] the event this information is protected by the Federal Confidentiality of Alcohol and Drug Abuse Patient Records regulations: The Federal rules restrict any use of the information to criminally investigate or prosecute any alcohol or drug abuse patient.[facility] the event this information is protected by the Federal Confidentiality of Alcohol and Drug Abuse Patient Records regulations: The Federal rules restrict any use of the information to criminally investigate or prosecute any alcohol or drug abuse patient.[facility] the event this information is protected by the Federal Confidentiality of Alcohol and Drug Abuse Patient Records regulations: The Federal rules restrict any use of the information to criminally investigate or prosecute any alcohol or drug abuse patient.[facility] the event this information is protected by the Federal Confidentiality of Alcohol and Drug Abuse Patient Records regulations: The Federal rules restrict any use of the information to criminally investigate or prosecute any alcohol or drug abuse patient.[facility] the event this information is protected by the Federal Confidentiality of Alcohol and Drug Abuse Patient Records regulations: The Federal rules restrict any use of the information to criminally investigate or prosecute any alcohol or drug abuse patient.[facility] the event this information is protected by the Federal Confidentiality of Alcohol and Drug Abuse Patient Records regulations: The Federal rules restrict any use of the information to criminally investigate or prosecute any alcohol or drug abuse patient.[facility] the event this information is protected by the Federal Confidentiality of Alcohol and Drug Abuse Patient Records regulations: The Federal rules restrict any use of the information to criminally investigate or prosecute any alcohol or drug abuse patient.[facility] the event this information is protected by the Federal Confidentiality of Alcohol and Drug Abuse Patient Records regulations: The Federal rules restrict any use of the information to criminally investigate or prosecute any alcohol or drug abuse patient.[facility] the event this information is protected by the Federal Confidentiality of Alcohol and Drug Abuse Patient Records regulations: The Federal rules restrict any use of the information to criminally investigate or prosecute any alcohol or drug abuse patient.[facility] the event this information is protected by the Federal Confidentiality of Alcohol and Drug Abuse Patient Records regulations: The Federal rules restrict any use of the information to criminally investigate or prosecute any alcohol or drug abuse patient.[facility]In the event this information is protected by the Federal Confidentiality of Alcohol and Drug Abuse Patient Records regulations: The Federal rules restrict any use of the information to criminally investigate or prosecute any alcohol or drug abuse patient.[facility] the event this information is protected by the Federal Confidentiality of Alcohol and Drug Abuse Patient Records regulations: The Federal rules restrict any use of the information to criminally investigate or prosecute any alcohol or drug abuse patient.[facility] the event this information is protected by the Federal Confidentiality of Alcohol and Drug Abuse Patient Records regulations: The Federal rules restrict any use of the information to criminally investigate or prosecute any alcohol or drug abuse patient.[facility]In the event this information is protected by the Federal Confidentiality of Alcohol and Drug Abuse Patient Records regulations: The Federal rules restrict any use of the information to criminally investigate or prosecute any alcohol or drug abuse patient.[facility]In the event this information is protected by the Federal Confidentiality of Alcohol and Drug Abuse Patient Records regulations: The Federal rules restrict any use of the information to criminally investigate or prosecute any alcohol or drug abuse patient.[facility]In the event this information is protected by the Federal Confidentiality of Alcohol and Drug Abuse Patient Records regulations: The Federal rules restrict any use of the information to criminally investigate or prosecute any alcohol or drug abuse patient.[facility]In the event this information is protected by the Federal Confidentiality of Alcohol and Drug Abuse Patient Records regulations: The Federal rules restrict any use of the information to criminally investigate or prosecute any alcohol or drug abuse patient.[facility]In the event this information is protected by the Federal Confidentiality of Alcohol and Drug Abuse Patient Records regulations: The Federal rules restrict any use of the information to criminally investigate or prosecute any alcohol or drug abuse patient.[facility]In the event this information is protected by the Federal Confidentiality of Alcohol and Drug Abuse Patient Records regulations: The Federal rules restrict any use of the information to criminally investigate or prosecute any alcohol or drug abuse patient.[facility]In the event this information is protected by the Federal Confidentiality of Alcohol and Drug Abuse Patient Records regulations: The Federal rules restrict any use of the information to criminally investigate or prosecute any alcohol or drug abuse patient.[facility]In the event this information is protected by the Federal Confidentiality of Alcohol and Drug Abuse Patient Records regulations: The Federal rules restrict any use of the information to criminally investigate or prosecute any alcohol or drug abuse patient.[facility]In the event this information is protected by the Federal Confidentiality of Alcohol and Drug Abuse Patient Records regulations: The Federal rules restrict any use of the information to criminally investigate or prosecute any alcohol or drug abuse patient.[facility]In the event this information is protected by the Federal Confidentiality of Alcohol and Drug Abuse Patient Records regulations: The Federal rules restrict any use of the information to criminally investigate or prosecute any alcohol or drug abuse patient.[facility]In the event this information is protected by the Federal Confidentiality of Alcohol and Drug Abuse Patient Records regulations: The Federal rules restrict any use of the information to criminally investigate or prosecute any alcohol or drug abuse patient.[facility]In the event this information is protected by the Federal Confidentiality of Alcohol and Drug Abuse Patient Records regulations: The Federal rules restrict any use of the information to criminally investigate or prosecute any alcohol or drug abuse patient.[facility]In the event this information is protected by the Federal Confidentiality of Alcohol and Drug Abuse Patient Records regulations: The Federal rules restrict any use of the information to criminally investigate or prosecute any alcohol or drug abuse patient.[facility]In the event this information is protected by the Federal Confidentiality of Alcohol and Drug Abuse Patient Records regulations: The Federal rules restrict any use of the information to criminally investigate or prosecute any alcohol or drug abuse patient.[facility] HospitalIn the event this information is protected by the Federal Confidentiality of Alcohol and Drug Abuse Patient Records regulations: The Federal rules restrict any use of the information to criminally investigate or prosecute any alcohol or drug abuse patient.[facility] HospitalIn the event this information is protected by the Federal Confidentiality of Alcohol and Drug Abuse Patient Records regulations: The Federal rules restrict any use of the information to criminally investigate or prosecute any alcohol or drug abuse patient.[facility] HospitalIn the event this information is protected by the Federal Confidentiality of Alcohol and Drug Abuse Patient Records regulations: The Federal rules restrict any use of the information to criminally investigate or prosecute any alcohol or drug abuse patient.[facility] HospitalIn the event this information is protected by the Federal Confidentiality of Alcohol and Drug Abuse Patient Records regulations: The Federal rules restrict any use of the information to criminally investigate or prosecute any alcohol or drug abuse patient.[facility] HospitalIn the event this information is protected by the Federal Confidentiality of Alcohol and Drug Abuse Patient Records regulations: The Federal rules restrict any use of the information to criminally investigate or prosecute any alcohol or drug abuse patient.[facility] HospitalIn the event this information is protected by the Federal Confidentiality of Alcohol and Drug Abuse Patient Records regulations: The Federal rules restrict any use of the information to criminally investigate or prosecute any alcohol or drug abuse patient.[facility] HospitalIn the event this information is protected by the Federal Confidentiality of Alcohol and Drug Abuse Patient Records regulations: The Federal rules restrict any use of the information to criminally investigate or prosecute any alcohol or drug abuse patient.[facility] HospitalIn the event this information is protected by the Federal Confidentiality of Alcohol and Drug Abuse Patient Records regulations: The Federal rules restrict any use of the information to criminally investigate or prosecute any alcohol or drug abuse patient.[facility] HospitalIn the event this information is protected by the Federal Confidentiality of Alcohol and Drug Abuse Patient Records regulations: The Federal rules restrict any use of the information to criminally investigate or prosecute any alcohol or drug abuse patient.[facility] HospitalIn the event this information is protected by the Federal Confidentiality of Alcohol and Drug Abuse Patient Records regulations: The Federal rules restrict any use of the information to criminally investigate or prosecute any alcohol or drug abuse patient.[facility] HospitalIn the event this information is protected by the Federal Confidentiality of Alcohol and Drug Abuse Patient Records regulations: The Federal rules restrict any use of the information to criminally investigate or prosecute any alcohol or drug abuse patient.[facility] HospitalIn the event this information is protected by the Federal Confidentiality of Alcohol and Drug Abuse Patient Records regulations: The Federal rules restrict any use of the information to criminally investigate or prosecute any alcohol or drug abuse patient.[facility] HospitalIn the event this information is protected by the Federal Confidentiality of Alcohol and Drug Abuse Patient Records regulations: The Federal rules restrict any use of the information to criminally investigate or prosecute any alcohol or drug abuse patient.[facility] HospitalIn the event this information is protected by the Federal Confidentiality of Alcohol and Drug Abuse Patient Records regulations: The Federal rules restrict any use of the information to criminally investigate or prosecute any alcohol or drug abuse patient.[facility] HospitalIn the event this information is protected by the Federal Confidentiality of Alcohol and Drug Abuse Patient Records regulations: The Federal rules restrict any use of the information to criminally investigate or prosecute any alcohol or drug abuse patient.[facility] HospitalIn the event this information is protected by the Federal Confidentiality of Alcohol and Drug Abuse Patient Records regulations: The Federal rules restrict any use of the information to criminally investigate or prosecute any alcohol or drug abuse patient.[facility] HospitalIn the event this information is protected by the Federal Confidentiality of Alcohol and Drug Abuse Patient Records regulations: The Federal rules restrict any use of the information to criminally investigate or prosecute any alcohol or drug abuse patient.[facility] HospitalIn the event this information is protected by the Federal Confidentiality of Alcohol and Drug Abuse Patient Records regulations: The Federal rules restrict any use of the information to criminally investigate or prosecute any alcohol or drug abuse patient.[facility] HospitalIn the event this information is protected by the Federal Confidentiality of Alcohol and Drug Abuse Patient Records regulations: The Federal rules restrict any use of the information to criminally investigate or prosecute any alcohol or drug abuse patient.[facility] HospitalIn the event this information is protected by the Federal Confidentiality of Alcohol and Drug Abuse Patient Records regulations: The Federal rules restrict any use of the information to criminally investigate or prosecute any alcohol or drug abuse patient.[facility] HospitalIn the event this information is protected by the Federal Confidentiality of Alcohol and Drug Abuse Patient Records regulations: The Federal rules restrict any use of the information to criminally investigate or prosecute any alcohol or drug abuse patient.[facility] HospitalIn the event this information is protected by the Federal Confidentiality of Alcohol and Drug Abuse Patient Records regulations: The Federal rules restrict any use of the information to criminally investigate or prosecute any alcohol or drug abuse patient.[facility] HospitalIn the event this information is protected by the Federal Confidentiality of Alcohol and Drug Abuse Patient Records regulations: The Federal rules restrict any use of the information to criminally investigate or prosecute any alcohol or drug abuse patient.[facility] Reason for Visit (unrecogniz ed section and content) Reason Onset Date Comments Refill Request 01/30/2022 Reason Comments Letter Reason Onset Date Comments Refill Request 11/21/2021 Reason Comments Insurance Authorization Reason Onset Date Comments Refill Request 02/02/2022 Reason Comments Refill Request Reason Onset Date Comments Refill Request 02/28/2022 Reason Onset Date Comments Refill Request 03/14/2022 Reason Comments Lab Orders Reason Onset Date Comments Refill Request 03/27/2022 Reason Onset Date Comments Refill Request 04/15/2022 Reason Onset Date Comments Refill Request 04/24/2022 Reason Onset Date Comments Refill Request 04/25/2022 Reason Onset Date Comments Refill Request 05/27/2022 Reason Onset Date Comments Refill Request 05/29/2022 Reason Onset Date Comments Refill Request 07/11/2022 Reason Onset Date Comments Refill Request 07/06/2022 Reason Onset Date Comments Refill Request 09/02/2022 Reason Comments Rx issue Reason Onset Date Comments Refill Request 09/12/2022 Reason Onset Date Comments Refill Request 09/14/2022 Reason Onset Date Comments Refill Request 08/19/2022 Refill Request 09/22/2022 Reason Onset Date Comments Refill Request 09/26/2022 Reason Onset Date Comments Refill Request 10/05/2022 Reason Onset Date Comments Refill Request 11/23/2022 Reason Onset Date Comments Refill Request 01/01/2023 Reason Onset Date Comments Opened In Error 09/06/2022 Reason Onset Date Comments Refill Request 01/19/2023 Reason Comments Orders Reason Comments Edema was seen in ER and t old has cellulitis but never treated her. Has areas on abdomen and lower legs Back Pain lower back pain that radiates down into left leg for about 2 days Reason Comments F/U 6 Month Reason Onset Date Comments Refill Request 04/23/2023 Reason Comments Established Patient Reason Comments AEP Forms Reason Comments Recheck Reason Onset Date Comments Refill Request 06/01/2023 Reason Onset Date Comments Refill Request 06/29/2023 Reason Onset Date Comments Refill Request 07/02/2023 Reason Comments Consult would like referral for weight loss surgery Reason Onset Date Comments Opened In Error 07/16/2023 Reason Comments Wrist Pain right x 2 days, sharath es injury, gums red and swollen x 1 week Reason Onset Date Comments Refill Request 07/27/2023 Reason Comments Medication request; not on med list Reason Comments Cough Back Pain Reason Onset Date Comments Refill Request 07/31/2023 Reason Onset Date Comments Refill Request 08/06/2023 Reason Comments requesting a medication Reason Comments Pharmacy Call Reason Comments prescription problem Reason Onset Date Comments Refill Request Refill Request 08/21/2023 Reason Onset Date Comments Refill Request 08/21/2023 Care Teams (unrecognized sec tion and content) Kitchen Worker Relationship Specialty Start Date End Date Rodri Villarreal MD [address] [place], [place] [id number] PCP - General 03/07/06 Kitchen Worker Relationship Specialty Start Date End Date Rodri Villarreal MD [address] [place], [place] [address] PCP - General 03/07/06 Kitchen Worker Relationship Specialty Start Date End Date Rodri Villarreal MD [address] [place] [address] PCP - General 03/07/06 Kitchen Worker Relationship Specialty Start Date End Date Rodri Villarreal MD [address] [place] [address] PCP - General 03/07/06 Kitchen Worker Relationship Specialty Start Date End Date Rodri Villarreal MD [address] [place] [address], [place] [address] PCP - General 03/07/06 Kitchen Worker Relationship Specialty Start Date End Date Rodri Villarreal MD [address] [place] [address], [place] [address] PCP - General 03/07/06 Kitchen Worker Relationship Specialty Start Date End Date Rodri Villarreal MD [address] [place] [address], [place] [address] PCP - General 03/07/06 Kitchen Worker Relationship Specialty Start Date End Date Rodri Villarreal MD [address] [place] [address], [place] [address] PCP - General 03/07/06 Kitchen Worker Relationship Specialty Start Date End Date Rodri Villarreal MD [address] [place] [address], [place] [address] PCP - General 03/07/06 Kitchen Worker Relationship Specialty Start Date End Date Rodri Villarreal MD [address] [place] [address], [place] [address] PCP - General 03/07/06 Kitchen Worker Relationship Specialty Start Date End Date Rodri Villarreal MD [address] [place] [address], [place] [address] PCP - General 03/07/06 Kitchen Worker Relationship Specialty Start Date End Date Rodri Villarreal MD [address] [place] [address] PCP - General 03/07/06 Kitchen Worker Relationship Specialty Start Date End Date Rodri Villarreal MD [address] [place] [address] PCP - General 03/07/06 Kitchen Worker Relationship Specialty Start Date End Date Rodri Villarreal MD [address] [place] [address], [place] [address] PCP - General 03/07/06 Kitchen Worker Relationship Specialty Start Date End Date Rodri Villarreal MD [address] [place] [address], [place] [address] PCP - General 03/07/06 Kitchen Worker Relationship Specialty Start Date End Date Rodri Villarreal MD [facility] [place] [place] [address] PCP - General 03/07/06 Kitchen Worker Relationship Specialty Start Date End Date Rodri Villarreal MD [address] [place] [address], [place] [address] PCP - General 03/07/06 Kitchen Worker Relationship Specialty Start Date End Date Rodri Villarreal MD [address] [place] [address], [place] [address] PCP - General 03/07/06 Kitchen Worker Relationship Specialty Start Date End Date Rodri Villarreal MD [address] [place] [address], [place] [address] PCP - General 03/07/06 Kitchen Worker Relationship Specialty Start Date End Date Rodri Villarreal MD [address] [place] [address], [place] [address] PCP - General 03/07/06 Kitchen Worker Relationship Specialty Start Date End Date Rodri Villarreal MD [address] [place] [address] PCP - General 03/07/06 Kitchen Worker Relationship Specialty Start Date End Date Rodri Villarreal MD [address] [place] [address] PCP - General 03/07/06 Kitchen Worker Relationship Specialty Start Date End Date Rodri Villarreal MD [address] [place] [address] PCP - General 03/07/06 Kitchen Worker Relationship Specialty Start Date End Date Rodri Villarreal MD [address] [place] [address] PCP - General 03/07/06 Kitchen Worker Relationship Specialty Start Date End Date Rodri Villarreal MD [address] [place] [address] PCP - General 03/07/06 Kitchen Worker Relationship Specialty Start Date End Date Rodri Villarreal MD [address] [place] [address] PCP - General 03/07/06 Kitchen Worker Relationship Specialty Start Date End Date Rodri Villarreal MD [address] [place] [address] PCP - General 03/07/06 Kitchen Worker Relationship Specialty Start Date End Date Rodri Villarreal MD [address] [place] [address] PCP - General 03/07/06 Kitchen Worker Relationship Specialty Start Date End Date Rodri Villarreal MD [address] [place] [address] PCP - General 03/07/06 Kitchen Worker Relationship Specialty Start Date End Date Rodri Villarreal MD [address] [place] [address] PCP - General 03/07/06 Kitchen Worker Relationship Specialty Start Date End Date Rodri Villarreal MD [address] [place] [address] PCP - General 03/07/06 Kitchen Worker Relationship Specialty Start Date End Date Rodri Villarreal MD [address] [place] [address] PCP - General 03/07/06 Kitchen Worker Relationship Specialty Start Date End Date Rodri Villarreal MD [address] [place] [address] PCP - General 03/07/06 Kitchen Worker Relationship Specialty Start Date End Date Rodri Villarreal MD [address] [place] [address] PCP - General 03/07/06 Kitchen Worker Relationship Specialty Start Date End Date Rodri Villarreal MD [address] [place] [address] PCP - General 03/07/06 Kitchen Worker Relationship Specialty Start Date End Date Rodri Villarreal MD [address] [place] [address] PCP - General 03/07/06 Kitchen Worker Relationship Specialty Start Date End Date Rodri Villarreal MD [address] [place], [place] [address] PCP - General 03/07/06 Kitchen Worker Relationship Specialty Start Date End Date Rodri Villarreal MD [address] [place], [place] [address] PCP - General 03/07/06 Kitchen Worker Relationship Specialty Start Date End Date Rodri Villarreal MD [address] [place], [place] [address] PCP - General 03/07/06 Kitchen Worker Relationship Specialty Start Date End Date Rodri Villarreal MD [address] [place] [address] PCP - General 03/07/06 Kitchen Worker Relationship Specialty Start Date End Date Rodri Villarreal MD [address] [place], [place] [address] PCP General 03/07/06 Kitchen Worker Relationship Specialty Start Date End Date Rodri Villarreal MD [address] [place], [place] [address] PCP General 03/07/06 FOR RECORDS PERTAINING TO PATIENTS WHO ARE OR HAVE BEEN ENROLLED IN A CHEMICAL DEPENDENCY/SUBSTANCEABUSE PROGRAM, SOME INFORMATION MAY BE OMITTED. This clinical summary was aggregated from multiple sources. Caution should be exercised in using it in the provision of clinical care. This summary normalizes information from multiple sources, and as a consequence, information in this document may materially change the coding, format and clinical context of patient data. In addition, data may be omitted in some cases. CLINICAL DECISIONS SHOULD BE BASED ON THE PRIMARY CLINICAL RECORDS. [facility] [employer] [facility]. provides no warranty or guarantee of the accuracy or completeness of information in this document.
[2023-09-28 06:41] VITALS: BP 139/96; PULSE 100; RESP 20; TEMP 36.3; O2SAT 100; BMI 63.6
[2023-09-28] MEDS: Lactated Ringers 1,000 ML 15 ML IV (06:57)
[2023-09-28 07:04] LABS: Bedside Glucose 121 mg/dL (74-106)
[2023-09-28 07:22] LABS: Internal QC Validated? YES +Cl - CLEAR BKGD; Pregnancy, Serum, hCG Quali. NEGATIVE Negative
[2023-09-28] MEDS: Clindamycin 900 MG/50 ML BAG 75 MG IV (07:30)
--- NOTE | 2023-09-28 07:31 | PCM.OPRPT ---
Problems Associated Problem List Diagnoses (1) Non-pressure chronic ulcer of unspecified part of right lower leg with fat layer exposed: (2) Acute painful diabetic polyneuropathy: (3) Lymphedema, not elsewhere classified: Report of Operation Date of Procedure: 09/28/23 Pre-Operative Diagnosis: 1. Nonpressure ulceration, right calf 2. Diabetes mellitus type 2 with peripheral neuropathy 3. Lymphedema Post-Operative Diagnosis: 1. Nonpressure ulceration, right calf 2. Diabetes mellitus type 2 with peripheral neuropathy 3. Lymphedema Surgery/Procedure Performed:: 1. Incision and drainage, right calf 2. Delayed primary closure, right calf Description of Surgical Findings:: 1. No evidence of purulent drainage or sign of infection into the right posterior calf full-thickness ulceration. 2. Complete closure of the full-thickness ulceration after 3-1 incision with delayed primary closure. Surgeon: Sebas Lord construction safety manager: None Type of Anesthesia: Local and MAC Anesthesiologist: Jaqueline Hazel Special Medications: Per anesthesia Specimen's removed: None Drains: None Estimated Blood Loss (mL): 5 mL Fluids Replaced: Per anesthesia Description of Procedure: Indications For Operation: Ms. Rodriguez is a 43-year-old diabetic female who was admitted to [facility] for for elective incision and drainage and delayed primary closure to the right posterior calf secondary to chronic full-thickness ulceration. Patient is well-known to me at the wound care center who undergone a punch biopsy with advancement flap closure that failed due to noncompliance and increased weightbearing to the right lower extremity. Over the last 1-2 months the patient has showed to have controlled diabetes as well as decreased in smoking. Patient has shown willingness to be nonweightbearing for the next 3 weeks to right lower extremity thus moving forward with elective surgery today. Patient had surgical consultation in private office. Due to the chronicity of the full-thickness ulceration to the posterior calf it had deemed necessary at this time to take the patient to the operating room to perform the above procedure to help close and heal her chronic full-thickness ulceration of the posterior calf. The nature of the problem, anticipated procedures, postop recovery/convalences and risk/complications include but not limited to infection, wound healing complications, hypertrophic scarring, numbness, tingling, chronic pain, CRPS, over and under correction, recurrence of deformity, DVT and or PE and the need for further surgery have been discussed in great detail with the patient. All questions have been answered to the patient's satisfaction. There are no guarantees given as to the outcome of the procedure. Description of Procedure: Under mild sedation, the patient was brought into the operating room and left in her gurney for surgical positioning. Once the patient was under monitored anesthesia care, the right lower extremity was blocked using approximately 9 cc of 1% lidocaine with epinephrine 1:100,000 followed by a 4 cc of 0.5% Marcaine plain. No tourniquet was used for this procedure. The patient was placed in a lateral decubitus position for better exposure of the posterior full-thickness ulceration to the right leg. Next, the right lower extremity was prepped and draped in normal aseptic manner. Next, a timeout was then undertaken verifying the correct patient, extremity, visibility of preoperative markings, availability of the equipment. Procedure #1: Incision and drainage, right leg Next, attention was directed to the posterior aspect of the right leg. Using a sterile marker 3-1 incision was marked out encompassing the full-thickness ulceration. Using a 15 blade a full-thickness incision down to subcutaneous tissue was performed along the marked out incision via incision and drainage. Using a #15 blade and pickups the ellipsed skin was removed with care not to skive without incident, passed the back table to be discarded. There showed no evidence of purulent drainage nor concern for deep tissue infection. Further blunt dissection was carried down vertically as well as undermining the subcutaneous tissue to allow for advancement type closure via delayed primary closure. Prior to suture closure of the skin showed the ability to be well coapted without tension. The full-thickness incision was flushed with copious dominique normal saline. Half of the [employer] amniotic skin graft substitute was placed in the full-thickness incision. Procedure #2: Delayed primary closure, right leg Next, the subcutaneous layer was reapproximated and closed with 2-0 Vicryl in buried suture technique. The skin was reapproximated and closed with a combination of horizontal mattress and simple interrupted sutures using 2-0 nylon. The remaining half of the [employer] amniotic skin graft substitute was placed over the incision to aid in healing. The right lower extremity was wiped clean and patted dry. The skin graft substitute was covered with Adaptic, Steri-Strips and a bolster dressing. The right lower extremity was dressed with a 3 layer Montes AO splint. The patient tolerated the procedure and anesthesia well and apparent satisfactory condition and was transported to the PACU for further monitoring prior to discharge home. Vital signs stable and vascular status intact to all digits bilateral. Post Operative Plan: Weightbearing: Nonweightbearing to the right lower extremity. Full weightbearing to left lower extremity. Antibiotics: 900 mg clindamycin DVT Prophylaxis: Aspirin 81 mg twice daily Arellano: None Dressing: Right medical BioSkin, Adaptic, 4 x 4's, Kerlix, 3 layer Montes AO splint X-Rays: None required Pain Medication: Percocet 5/325, Flexeril 10 mg 3 times daily Follow-up: Follow-up with Dr. Lord 1 week postop at the wound care center at [facility]. Grafts/Implants Used: [employer] BioSkin 4 cm x 4 cm Complications None Admit VTE Documentation VTE Present on Admission: No VTE Mechan Device Prophylaxis: SCD's VTE Pharm Prophylaxis ordered?: No
[2023-09-28] MEDS: Lidocaine 1% /Epi 1:100 (20ml) 20 ML Vial (07:45)
[2023-09-28] MEDS: Bupivacaine Mpf 0.5% 30 ML VIAL (08:24)
[2023-09-28 08:35] VITALS: BP 139/96; BP 154/102; PULSE 104; RESP 20; O2SAT 97
[2023-09-28 08:37] VITALS: BP 139/96; BP 154/102; PULSE 106; RESP 20; TEMP 36.3; O2SAT 99
[2023-09-28 08:40] VITALS: BP 139/96; BP 152/83; PULSE 104; RESP 20; O2SAT 98
[2023-09-28 08:44] VITALS: BP 139/96; BP 160/80; PULSE 104; RESP 18; TEMP 36; O2SAT 99
[2023-09-28 09:41] VITALS: BP 139/96
== END 2023-09-28 10:32 | disposition home or self-care (01) ==
LOC: SDC 05:57 → AC 07:06
PROVIDERS: Anesthesiology; PCP Internal Medicine; Referring Provider Podiatrist Foot & Ankle Surgery; Visit Provider Podiatrist Foot & Ankle Surgery
PROC: (CPT 10061; principal; 2023-09-28 07:20)
DX: E11.622 Type 2 diabetes mellitus with other skin ulcer (principal); L97.212 Non-pressure chronic ulcer of right calf with fat layer exposed; J44.9 Chronic obstructive pulmonary disease, unspecified; F31.32 Bipolar disorder, current episode depressed, moderate; E11.42 Type 2 diabetes mellitus with diabetic polyneuropathy; E66.01 Morbid (severe) obesity due to excess calories; Z68.44 Body mass index [BMI] 60.0-69.9, adult; I89.0 Lymphedema, not elsewhere classified; E78.5 Hyperlipidemia, unspecified; J45.20 Mild intermittent asthma, uncomplicated; D50.9 Iron deficiency anemia, unspecified; F17.210 Nicotine dependence, cigarettes, uncomplicated; Z79.82 Long term (current) use of aspirin; Z79.84 Long term (current) use of oral hypoglycemic drugs; Z79.899 Other long term (current) drug therapy
CPT/HCPCS: 10061; 13160; 00400; 82962; 84703; J7120; J2405

== ENCOUNTER 2023-10-17 15:15 | Outpatient (RCR) | payer MEDICAID, SELFPAY ==
[2023-09-17 00:13] VITALS: BP 150/78; PULSE 101; RESP 22; TEMP 36.3; BMI 62.5
[2023-09-19 15:25] VITALS: BP 164/89; PULSE 111; RESP 18; TEMP 36.3; BMI 62.5
--- NOTE | 2023-09-19 15:30 | PCM.WC.PN ---
History of Present Illness Date of Service: 09/19/23 Chief Complaint: Ulceration right posterior leg History of Wound: Ulceration right posterior leg Subjective Subjective Ms. Rodriguez is a 42-year-old diabetic female seen at the wound care center today for follow-up and evaluation for full-thickness ulceration to the posterior aspect of the right calf. Patient has been doing home dressing changes with collagen/hydrogel with improvements to the wound. Antibiotics complete. She is doing home dressing changes as directed. She denies any trauma. Denies constitutional symptoms. No other pedal complaints at this time. Objective Data Objective Data Vital Signs: Vital Signs Temp Pulse Resp BP 97.3 F L 101 H 22 H 150/78 H 09/17/23 00:13 09/17/23 00:13 09/17/23 00:13 09/17/23 00:13 Weight: 160.223 kg Body Mass Index (BMI) 62.5 Physical Exam Narrative Neurovascular status unchanged. Evidence of full-thickness ulceration of the posterior calf measuring 0.4 x 0.7 x 0.2 cm. Wound base is fibrogranular in nature. Sanguinous drainage noted. No sign of infection. No erythema no SOI. Pain on palpation to full-thickness ulceration. No pain with calf compression. Excisional debridement down to and including subcutaneous tissue to the right posterior calf full-thickness ulceration with a number 3 mm dermal curette without incident. Predebridement measurement is 0.3 x 0.7 x 0.2 cm. Postdebridement measurement is 0.4 x 0.9 x 0.2 cm. Debridement Note Debridement Note Debridement Free Text: Excisional debridement down to and including subcutaneous tissue to the right posterior calf full-thickness ulceration with a number 3 mm dermal curette without incident. Predebridement measurement is 0.3 x 0.7 x 0.2 cm. Postdebridement measurement is 0.4 x 0.9 x 0.2 cm. Assessment/Plan Assessment/Plan (1) Ulcer of right lower extremity with fat layer exposed: CODE(S): L97.912 - Non-pressure chronic ulcer of unspecified 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 All findings were discussed with the patient. All questions were answered to the patient's satisfaction. Excisional debridement down to and including subcutaneous tissue to the right posterior calf full-thickness ulceration with a number 3 mm dermal curette without incident. Predebridement measurement is 0.3 x 0.7 x 0.2 cm. Postdebridement measurement is 0.4 x 0.9 x 0.2 cm. Ulceration dressed with hydrogel gauze and tape. Patient will follow-up in private office for surgical planning. Follow-up at the wound care center with Dr. Lord in 1 week. (2) Calciphylaxis: CODE(S): E83.59 - Other disorders of calcium metabolism (3) Diabetes mellitus with diabetic polyneuropathy: CODE(S): E11.42 - Type 2 diabetes mellitus with diabetic polyneuropathy QUALIFIERS: Diabetes mellitus type: type 2 Diabetes mellitus plant maintenance technician insulin use: with plant maintenance technician use Qualified Code(s): E11.42 - Type 2 diabetes mellitus with diabetic polyneuropathy; Z79.4 - [facility] (current) use of insulin
[2023-10-03 15:15] VITALS: BP 140/82; PULSE 110; RESP 20; BMI 62.5
--- NOTE | 2023-10-03 16:05 | PCM.WC.PN ---
History of Present Illness Date of Service: 10/03/23 Chief Complaint: Ulceration right posterior leg History of Wound: Ulceration right posterior leg Subjective Subjective Ms. Rodriguez is a 43-year-old diabetic female presenting to the wound care center today for follow-up and evaluation status post incision and drainage with delayed primary closure to the posterior aspect of the right calf full-thickness ulceration. Date of surgery: 09/28/2023. Patient manage she is having some pain to the surgical area. She has kept her postoperative dressing clean dry and intact. In regards to postoperative compliance as well as nonweightbearing the patient has been weightbearing without assistance of crutches or knee scooter. The patient is understanding that she is not to put any weight on it and will continue to follow her postoperative course as she is concerned for possibly opening up her posterior right calf incision. She denies trauma. Denies constitutional symptoms. No other pedal complaints at this time. Objective Data Objective Data Vital Signs: Vital Signs Temp Pulse Resp BP O2 Del Method 97.3 F L 110 H 20 H 140/82 H Room Air 09/19/23 15:25 10/03/23 15:15 10/03/23 15:15 10/03/23 15:15 10/03/23 15:15 Oxygen Delivery Method Room Air Weight: 160.223 kg Body Mass Index (BMI) 62.5 Physical Exam Narrative Neurovascular status is unchanged. Nonpitting edema appreciated to right lower extremity. Incision is well coapted with suture. There is evidence of maceration and sanguinous drainage appreciated to the incision. No evidence of erythema, proximal streaking, drainage, surgical wound dehiscence or sign of infection. Mild palpatory tenderness appreciated to the incision to the posterior right calf. No pain with calf compression. Debridement Note Debridement Note Post-Debridement Measurements and Additional Note: Post-Debridement Measurements/Treatment - Nurse 1 - General Ulcer Assessment Start: 09/19/23 15:25 Freq: Status: Active Protocol: WATSON Activity Type Activity Date Activity User E-sign Co-sign Detail Recorded Client Recorded Date Recorded By Document 09/19/23 15:25 KW Desktop 09/19/23 15:30 KW Document 10/03/23 15:15 KW Desktop 10/03/23 15:38 KW 09/19/23 10/03/23 15:25 15:15 WC - Today's Visit Information Type of service Follow-up Visit Follow-up Visit (Physician/BOARDER STEAM (Physician/BOARDER STEAM ) ) Arrival Mode Ambulatory Wheelchair Patient Identification Verified (Name & Yes ) Height and Weight Body Mass Index (BMI) 62.5 62.5 BMI Classification Obese Obese Vital Signs Temperature (97.8 F-99.1 F) 97.3 F L Temperature Source Temporal Pulse Rate (60-100) 111 H 110 H Pulse Location Monitor Respiratory Rate (12-18) 18 20 H Respiratory rate source Observation Observation Oxygen Delivery Method Room Air Room Air Blood Pressure (90/60-120/80) 164/89 H 140/82 H Blood Pressure Mean (mm Hg) 114 101 Source Monitor Monitor Position Sitting Sitting Blood Pressure Location Left Arm Left Forearm History Since Last Visit- (Skip if this is Patient's initial visit) Have you changed medications since your No No last visit? Any new allergies or adverse reactions No No Had a fall/change in ADL's that may No No increase risk of falls Signs or symptoms of abuse and/or No No neglect since last visit Have you been in the hospital since your No Yes last visit? Has dressing in place as prescribed Yes Yes Has compression in place as prescribed Yes Yes Has offloadiing in place as prescribed No Yes Experienced any changes in pain level or No No management Left Footwear Regular Shoe Slipper Right Footwear Regular Shoe Removable Cast Walker/Walking Boot Pain Scale: 0-10 Numeric Is Patient Pain Free? Yes Yes - Nurse 1 - General Ulcer Measurement Start: 09/19/23 15:25 Freq: Status: Active Protocol: Activity Type Activity Date Activity User E-sign Co-sign Detail Recorded Client Recorded Date Recorded By Document 09/19/23 15:25 KW Desktop 09/19/23 15:30 KW Document 10/03/23 15:15 KW Desktop 10/03/23 15:38 KW 09/19/23 10/03/23 15:25 15:15 Wound Center Nurse 1 #1 R post LE- post surg -Current Size (cm) - Length 0.1 -Current Size (cm) - Width 0.1 -Current Size (cm) - Depth 0.1 -Total Square Cm 0.01 -Exudate Amt Small -Exudate Type Serosanguineous -Wound Margin Distinct, Outline Attached -Granulation Amt Medium (34-66%) -Granulation Quality [place] -Necrosis Amt Medium (34-66%) -Necrotic Tissue Type Adherent Slough -Texture (Rachele-wound Skin Appearance) Assessed Assessed -Moisture (Rachele-wound Skin Appearance) Maceration Assessed -Color (Rachele-wound Skin Appearance) Assessed Assessed -Temperature (Rachele-wound Skin No Abnormality Appearance) (Pt Warm) -Ulcer Cleansing Rinsed/ Soap and Water Irrigated with Saline -Anesthetic Used 5% Lidocaine Gel -Wound Comment(s) post surg. left wound viel in tact Right Calf (cm) 66.3 59.3 Right Ankle (cm) 33 33.5 WC - Nurse 2 - General Ulcer CM Notes Start: 09/19/23 15:25 Freq: Status: Active Protocol: Activity Type Activity Date Activity User E-sign Co-sign Detail Recorded Client Recorded Date Recorded By Document 09/19/23 15:37 KW Desktop 09/19/23 15:41 KW Document 10/03/23 15:46 JF Laptop 10/03/23 15:50 JF 09/19/23 10/03/23 15:37 15:46 Wound Center Nurse 2 #1 R post LE- post surg -Time 15:37 -Correct Patient Yes No -Correct Side, Site, Position Yes No -Correct Procedure Yes No -Procedure Performed Yes No -Type of Procedure Debridement -Clinical Debridement Subcutaneous -Tissue Removed Subcutaneous -Post Debridement (cm) - Length 0.4 -Post Debridement (cm) - Width 0.9 -Post Debridement (cm) - Depth 0.2 -Total Square (Post) (cm) 0.36 -Area of Debridement (cm) - Length 0.4 -Area of Debridement (cm) - Width 0.9 -Total Square (Area) (cm) 0.36 -Tunneling No -Undermining/Tunneling No -Circular Undermining No -Wound/Ulcer Outcome Not Healed Not Healed -Ulcer Cleansing Rinsed/ Irrigated with Saline -Foul Odor after Cleansing No -Bioengineered Tissue No -Bleeding Controlled with Pressure -Treatment Response Procedure Tolerated Well -Offloading No -Debridement - Subq, 1st 20sq cm Yes No Pain Scale: 0-10 Numeric Is Patient Pain Free? Yes Yes PANCHITO - Nurse 3 - General Ulcer D/C NN Start: 09/19/23 15:25 Freq: Status: Active Protocol: Activity Type Activity Date Activity User E-sign Co-sign Detail Recorded Client Recorded Date Recorded By Document 09/19/23 15:49 KW Desktop 09/19/23 15:49 KW Document 10/03/23 15:55 KW Desktop 10/03/23 15:56 KW 09/19/23 10/03/23 15:49 15:55 Wound Care Center Nurse 3 #1 R post LE- post surg -Primary Dressing Applied C Hydrogel ($) NonAdherent Contact Layer, Other -Other Dressing betadine -Primary Dressing Covered/Secured with Dry Gauze, Dry Gauze & Secured with Roll Gauze, Tape Secured with Tape Right -Multi-Layered Wrap Application Multi-Layer Comp - Right ($ ) -Tubular Bandage Double Layer -Size of Tubigrip Used Size F -Size F ($) 2 Left -Tubular Bandage Double Layer -Size of Tubigrip Used Size F -Size F ($) 2 Pain Scale: 0-10 Numeric Is Patient Pain Free? Yes Yes WC - Visit Discharge Discharge Condition Stable Ambulatory Status Ambulatory Wheelchair Transportation Private Auto Private Auto Medication Reconcilliation completed & No No provided to patient/care provider Clinical Summary of Care Provided Yes Assessment/Plan Assessment/Plan (1) Non-pressure chronic ulcer of unspecified part of 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 All findings were discussed with the patient. All questions were answered to the patient's satisfaction. Long discussion with the patient regarding her postoperative instructions. Reeducated to the patient and stressed that she needs to be nonweightbearing to the right lower extremity at all times during her postoperative course. At this time the patient was noncompliant prior to arrival to the wound care center today as she has been weightbearing. After our discussion she is understanding of this and will continue to be nonweightbearing with assistance of crutches until her follow-up with nursing for dressing change on Sunday and then followed by Sunday follow-up with Dr. Lord. It was stressed to the patient that if she continues to be noncompliant with her postoperative instructions she was at the risk of opening up her incision and causing a greater wound and possibly causing a worse or deep infection that will require additional OR debridement and could possibly lead to loss of leg if she is not careful. Educated the patient to continue her protein intake as well as continue to have strict blood sugar control and not smoke during the postoperative course. Again the patient showed understanding of this. The right posterior calf incision was dressed with Betadine paint, Adaptic, Betadine soaked 4 x 4, dry sterile dressing and a 3 layer compression wrap was applied without incident. Patient will follow-up Sunday for nursing change and then Sunday with Dr. Lord. Follow-up at the wound care center with Dr. Lord in 1 week. (2) Lymphedema, not elsewhere classified: CODE(S): I89.0 - Lymphedema, not elsewhere classified
[2023-10-08 14:43] VITALS: BP 172/84; PULSE 106; RESP 16; BMI 62.5
[2023-10-10 14:38] VITALS: BP 158/79; PULSE 108; RESP 18; TEMP 36; BMI 62.5
--- NOTE | 2023-10-10 21:37 | PN.PCM_ITS ---
History of Present Illness Date of Service: 10/10/23 Chief Complaint: Ulceration right posterior leg History of Wound: Ulceration right posterior leg Subjective Subjective Ms. Rodriguez is a 43-year-old diabetic female presenting to the wound care center today for follow-up and evaluation status post incision and drainage with delayed primary closure to the posterior aspect of the right calf full-thickness ulceration. Date of surgery: 09/28/2023. Patient admitts her pain is improved. However, the patient states that she has been unable to be nonweightbearing to the right lower extremity due to lack of help at home. She has attempted crutches but has been unsuccessful with them. She has not been able to get a knee scooter secondary to financial instability. She admits to being around people that smoke. She states that she has decreased her smoking. She admits her blood sugar has been well controlled. She denies any drainage to the dressing. She denies trauma. Denies constitutional symptoms. No other pedal complaints at this time. Objective Data Objective Data Vital Signs: Vital Signs Temp Pulse Resp BP O2 Del Method 96.8 F L 108 H 18 158/79 H Room Air 10/10/23 14:38 10/10/23 14:38 10/10/23 14:38 10/10/23 14:38 10/10/23 14:38 Oxygen Delivery Method Room Air Weight: 160.223 kg Body Mass Index (BMI) 62.5 Physical Exam Narrative Neurovascular status is unchanged. Nonpitting edema appreciated to right lower extremity. Incision is well coapted with suture, with some incisional maceration secondary to drainage. No evidence of erythema, proximal streaking, drainage, surgical wound dehiscence or sign of infection. Mild palpatory tenderness appreciated to the incision to the posterior right calf. No pain with calf compression. Debridement Note Debridement Note Post-Debridement Measurements and Additional Note: Post-Debridement Measurements/Treatment WC - Nurse 1 - General Ulcer Assessment Start: 09/19/23 15:25 Freq: Status: Active Protocol: WATSON Activity Type Activity Date Activity User E-sign Co-sign Detail Recorded Client Recorded Date Recorded By Document 09/19/23 15:25 KW Desktop 09/19/23 15:30 KW Document 10/03/23 15:15 KW Desktop 10/03/23 15:38 KW Document 10/08/23 14:43 BMF Desktop 10/08/23 14:55 BM Document 10/10/23 14:38 KW Desktop 10/10/23 14:51 KW 09/19/23 10/03/23 10/08/23 15:25 15:15 14:43 - Today's Visit Information Type of service Follow-up Visit Follow-up Visit Nurse-only (Physician/TRAVELING CRANE OPERATOR (Physician/TRAVELING CRANE OPERATOR Visit ) ) Arrival Mode Ambulatory Wheelchair Ambulatory Transfer Assistance None Patient Identification Verified (Name & Yes Yes ) Patient Requires Transmission-Based No Precautions Height and Weight Body Mass Index (BMI) 62.5 62.5 62.5 BMI Classification Obese Obese Obese Vital Signs Temperature (97.8 F-99.1 F) 97.3 F L Temperature Source Temporal Pulse Rate (60-100) 111 H 110 H 106 H Pulse Location Monitor Monitor Respiratory Rate (12-18) 18 20 H 16 Respiratory rate source Observation Observation Observation Oxygen Delivery Method Room Air Room Air Room Air Blood Pressure (90/60-120/80) 164/89 H 140/82 H 172/84 H Blood Pressure Mean (mm Hg) 114 101 113 Source Monitor Monitor Monitor Position Sitting Sitting Sitting Blood Pressure Location Left Arm Left Forearm Left Forearm History Since Last Visit- (Skip if this is Patient's initial visit) Have you changed medications since your No No No last visit? Any new allergies or adverse reactions No No No Had a fall/change in ADL's that may No No No increase risk of falls Signs or symptoms of abuse and/or No No No neglect since last visit Have you been in the hospital since your No Yes No last visit? Has dressing in place as prescribed Yes Yes Yes Has compression in place as prescribed Yes Yes Yes Has offloadiing in place as prescribed No Yes N/A Experienced any changes in pain level or No No No management Left Footwear Regular Shoe Slipper Regular Shoe Right Footwear Regular Shoe Removable Cast Regular Shoe Walker/Walking Boot Pain Scale: 0-10 Numeric Is Patient Pain Free? Yes Yes Yes 10/10/23 14:38 WC - Today's Visit Information Type of service Follow-up Visit (Physician/TRAVELING CRANE OPERATOR ) Arrival Mode Ambulatory Transfer Assistance Patient Identification Verified (Name & Yes ) Patient Requires Transmission-Based Precautions Height and Weight Body Mass Index (BMI) 62.5 BMI Classification Obese Vital Signs Temperature (97.8 F-99.1 F) 96.8 F L Temperature Source Temporal Pulse Rate (60-100) 108 H Pulse Location Monitor Respiratory Rate (12-18) 18 Respiratory rate source Observation Oxygen Delivery Method Room Air Blood Pressure (90/60-120/80) 158/79 H Blood Pressure Mean (mm Hg) 105 Source Monitor Position Semi-Fowlers Blood Pressure Location Right Forearm History Since Last Visit- (Skip if this is Patient's initial visit) Have you changed medications since your No last visit? Any new allergies or adverse reactions No Had a fall/change in ADL's that may No increase risk of falls Signs or symptoms of abuse and/or No neglect since last visit Have you been in the hospital since your No last visit? Has dressing in place as prescribed Yes Has compression in place as prescribed Yes Has offloadiing in place as prescribed No Experienced any changes in pain level or No management Left Footwear Regular Shoe Right Footwear Regular Shoe Pain Scale: 0-10 Numeric Is Patient Pain Free? Yes WC - Nurse 1 - General Ulcer Measurement Start: 09/19/23 15:25 Freq: Status: Active Protocol: Activity Type Activity Date Activity User E-sign Co-sign Detail Recorded Client Recorded Date Recorded By Document 09/19/23 15:25 KW Desktop 09/19/23 15:30 KW Document 10/03/23 15:15 KW Desktop 10/03/23 15:38 KW Document 10/08/23 14:[address] [facility] Desktop 10/08/23 14:55 BMF Document 10/10/23 14:38 KW Desktop 10/10/23 14:51 KW 09/19/23 10/03/23 10/08/23 15:25 15:15 14:43 Wound Center Nurse 1 #1 R post LE- post surg -Current Size (cm) - Length 0.1 -Current Size (cm) - Width 0.1 -Current Size (cm) - Depth 0.1 -Total Square Cm 0.01 -Date of Last Picture (Recall this field) -Photo Taken -Exudate Amt Small -Exudate Type Serosanguineous -Wound Margin Distinct, Outline Attached -Granulation Amt Medium (34-66%) -Granulation Quality [place] -Necrosis Amt Medium (34-66%) -Necrotic Tissue Type Adherent Slough -Texture (Rachele-wound Skin Appearance) Assessed Assessed -Moisture (Rachele-wound Skin Appearance) Maceration Assessed -Color (Rachele-wound Skin Appearance) Assessed Assessed -Temperature (Rachele-wound Skin No Abnormality Appearance) (Pt Warm) -Ulcer Cleansing Rinsed/ Soap and Water Irrigated with Saline -Anesthetic Used 5% Lidocaine Gel -Wound Comment(s) post surg. left wound viel in tact Lower Limb Edema Present Yes Right Calf (cm) 66.3 59.3 58 Right Ankle (cm) 33 33.5 29.9 10/10/23 14:38 Wound Center Nurse 1 #1 R post LE- post surg -Current Size (cm) - Length -Current Size (cm) - Width -Current Size (cm) - Depth -Total Square Cm -Date of Last Picture (Recall this 10/10/23 field) -Photo Taken Yes -Exudate Amt -Exudate Type -Wound Margin -Granulation Amt -Granulation Quality -Necrosis Amt -Necrotic Tissue Type -Texture (Rachele-wound Skin Appearance) -Moisture (Rachele-wound Skin Appearance) Maceration -Color (Rachele-wound Skin Appearance) -Temperature (Rachele-wound Skin Appearance) -Ulcer Cleansing -Anesthetic Used -Wound Comment(s) Sutures intact, drainage and maceration noted Lower Limb Edema Present Right Calf (cm) 59.5 Right Ankle (cm) 41.5 WC - Nurse 2 - General Ulcer CM Notes Start: 09/19/23 15:25 Freq: Status: Active Protocol: Activity Type Activity Date Activity User E-sign Co-sign Detail Recorded Client Recorded Date Recorded By Document 09/19/23 15:37 [email or web address] Desktop 09/19/23 15:41 KW Document 10/03/23 15:46 Laptop 10/03/23 15:50 Document 10/10/23 15:33 Laptop 10/10/23 15:38 09/19/23 10/03/23 10/10/23 15:37 15:46 15:33 Wound Center Nurse 2 #1 R post LE- post surg -Time 15:37 15:34 -Correct Patient Yes No No -Correct Side, Site, Position Yes No No -Correct Procedure Yes No No -Procedure Performed Yes No No -Type of Procedure Debridement -Clinical Debridement Subcutaneous -Tissue Removed Subcutaneous -Post Debridement (cm) - Length 0.4 -Post Debridement (cm) - Width 0.9 -Post Debridement (cm) - Depth 0.2 -Total Square (Post) (cm) 0.36 -Area of Debridement (cm) - Length 0.4 -Area of Debridement (cm) - Width 0.9 -Total Square (Area) (cm) 0.36 -Tunneling No No -Undermining/Tunneling No No -Circular Undermining No No -Wound/Ulcer Outcome Not Healed Not Healed Not Healed -Ulcer Cleansing Rinsed/ Rinsed/ Irrigated with Irrigated with Saline Saline -Foul Odor after Cleansing No No -Bioengineered Tissue No No -Bleeding Controlled with Pressure Pressure -Treatment Response Procedure Procedure Tolerated Well Tolerated Well -Offloading No No -Debridement - Subq, 1st 20sq cm Yes No No Pain Scale: 0-10 Numeric Is Patient Pain Free? Yes Yes Yes WC - Nurse 3 - General Ulcer D/C NN Start: 09/19/23 15:25 Freq: Status: Active Protocol: Activity Type Activity Date Activity User E-sign Co-sign Detail Recorded Client Recorded Date Recorded By Document 09/19/23 15:49 KW Desktop 09/19/23 15:49 KW Document 10/03/23 15:55 [email or web address] Desktop 10/03/23 15:56 KW Document 10/08/23 14:[address] [facility] Desktop 10/08/23 14:55 [email or web address] Document 10/10/23 15:43 BMF Desktop 10/10/23 15:44 BMF 09/19/23 10/03/23 10/08/23 15:49 15:55 14:43 Wound Care Center Nurse 3 #1 R post LE- post surg -Ulcer Cleansing Soap and Water -Foul Odor after Cleansing No -Primary Dressing Applied C Hydrogel ($) NonAdherent NonAdherent Contact Layer, Contact Layer Other -Other Dressing betadine BETADINE, ADAPTIC, BETADINE SOAKED GAUZE, ABD -Primary Dressing Covered/Secured with Dry Gauze, Dry Gauze & Secured with Roll Gauze, Tape Secured with Tape Right -Lotion applied to leg before Yes compression wrap -Multi-Layered Wrap Application Multi-Layer Multi-Layer Comp - Right ($ Comp - Right ($ ) ) -Tubular Bandage Double Layer -Size of Tubigrip Used Size F -Size F ($) 2 -Other Left -Tubular Bandage Double Layer -Size of Tubigrip Used Size F -Size F ($) 2 Treatment Response Procedure Tolerated Well Vital Signs Pulse Rate (60-100) 106 H Pulse Location Monitor Respiratory Rate (12-18) 16 Respiratory rate source Observation Oxygen Delivery Method Room Air Blood Pressure (90/60-120/80) 172/84 H Blood Pressure Mean (mm Hg) 113 Source Monitor Position Sitting Blood Pressure Location Left Forearm Pain Scale: 0-10 Numeric Is Patient Pain Free? Yes Yes Yes WC - Visit Discharge Discharge Condition Stable Stable Ambulatory Status Ambulatory Wheelchair Ambulatory Transportation Private Auto Private Auto Private Auto Medication Reconcilliation completed & No No provided to patient/care provider Clinical Summary of Care Provided Yes 10/10/23 15:43 Wound Care Center Nurse 3 #1 R post LE- post surg -Ulcer Cleansing Rinsed/ Irrigated with Saline -Foul Odor after Cleansing No -Primary Dressing Applied -Other Dressing BETADINE SOAKED GAUZE; DRSG PER GM RN -Primary Dressing Covered/Secured with Right -Lotion applied to leg before compression wrap -Multi-Layered Wrap Application Multi-Layer Comp - Right ($ ) -Tubular Bandage -Size of Tubigrip Used -Size F ($) -Other PER GM RN Left -Tubular Bandage Double Layer -Size of Tubigrip Used Size F -Size F ($) 2 Treatment Response Procedure Tolerated Well Vital Signs Pulse Rate (60-100) Pulse Location Respiratory Rate (12-18) Respiratory rate source Oxygen Delivery Method Blood Pressure (90/60-120/80) Blood Pressure Mean (mm Hg) Source Position Blood Pressure Location Pain Scale: 0-10 Numeric Is Patient Pain Free? Yes WC - Visit Discharge Discharge Condition Stable Ambulatory Status Ambulatory Transportation Private Auto Medication Reconcilliation completed & provided to patient/care provider Clinical Summary of Care Provided Assessment/Plan Assessment/Plan (1) Non-pressure chronic ulcer of unspecified part of 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 All findings were discussed with the patient. All questions were answered to the patient satisfaction. Patient was reeducated that she needs to be nonweightbearing to the right extremity with crutches, wheelchair, walker and or knee scooter. She will make attempts to get a knee scooter in the next day or 2. Patient understands the risks. The patient is recovering as expected with being noncompliant with her nonweightbearing. There is evidence of maceration across the incision. The sutures were removed without incident. The show evidence of a very small 0.3 x 0.3 x 0.1 wound dehiscence secondary to swelling and increased tension due to weightbearing. The incision was dressed with Betadine soaked gauze, dry sterile dressing and a 3M compression wrap was placed on the right lower extremity. A 2 layer Tubigrip was placed on the left lower extremity. The patient will follow- up Sunday for a nursing visit for evaluation and exchange of her 3M wrap as it will get loose. Was educated to the patient that she will be in aggressive compression wraps for 2 to 4 weeks which she was understanding of. This will aid in healing the patient's incision on the posterior right leg. Patient will follow-up with Dr. Lord at the wound care center in 1 week. (2) Lymphedema, not elsewhere classified: CODE(S): I89.0 - Lymphedema, not elsewhere classified
[2023-10-15 14:48] VITALS: BP 164/80; PULSE 116; RESP 22; TEMP 36.8; BMI 62.5
[2023-10-17 15:22] VITALS: BP 169/93; PULSE 119; RESP 20; TEMP 35.9; BMI 62.5
--- NOTE | 2023-10-17 16:09 | PCM.WC.PN ---
History of Present Illness Date of Service: 10/17/23 Chief Complaint: Ulceration right posterior leg History of Wound: Ulceration right posterior leg Subjective Subjective Ms. Rodriguez is a 43-year-old diabetic female presenting to the wound care center today for follow-up and evaluation status post incision and drainage with delayed primary closure to the posterior aspect of the right calf full-thickness ulceration. Date of surgery: 09/28/2023. Patient admitts her pain is improved. Patient states she has been nonweightbearing to the right lower extremity assistive knee scooter that she got on Sunday. She has kept her 3M dressing clean dry and intact denies any strikethrough. Denies trauma denies constitutional symptoms. No other pedal complaints at this time.. Objective Data Objective Data Vital Signs: Vital Signs Temp Pulse Resp BP O2 Del Method 96.6 F L 119 H 20 H 169/93 H Room Air 10/17/23 15:22 10/17/23 15:22 10/17/23 15:22 10/17/23 15:22 10/17/23 15:22 Oxygen Delivery Method Room Air Weight: 160.223 kg Body Mass Index (BMI) 62.5 Physical Exam Narrative Vascular: DP and PT pulses palpable. CFT is brisk. Nonpitting edema appreciated to right lower extremity. No erythema or proximal streaking is appreciated. Neurological: Light touch intact. Patient response to painful stimuli. Dermatological: Evidence of surgical wound dehiscence secondary to nonweightbearing and lack of medical compliance. Full-thickness ulceration measures 1.6 x 1.4 x 0.8 cm. Wound base is granular nature with sanguinous drainage after debridement. No evidence of erythema or proximal streaking. Cannot rule out infection at this time. Excisional debridement down to and including subcutaneous tissue with a number 3 mm dermal curette to the right posterior calf. Predebridement measurement was 1.3 x 1.2 x 0.4 cm. Postdebridement measurement is 1.6 x 1.4 x 0.8 cm. Musculoskeletal: No pain with calf compression. Mild pain to palpation full-thickness ulceration right calf. Debridement Note Debridement Note Debridement Free Text: Excisional debridement down to and including subcutaneous tissue with a number 3 mm dermal curette to the right posterior calf. Predebridement measurement was 1.3 x 1.2 x 0.4 cm. Postdebridement measurement is 1.6 x 1.4 x 0.8 cm. Post-Debridement Measurements and Additional Note: Post-Debridement Measurements/Treatment WC - Nurse 1 - General Ulcer Assessment Start: 09/19/23 15:25 Freq: Status: Active Protocol: [email or web address].[email or web address] Activity Type Activity Date Activity User E-sign Co-sign Detail Recorded Client Recorded Date Recorded By Document 09/19/23 15:25 KW Desktop 09/19/23 15:30 KW Document 10/03/23 15:15 KW Desktop 10/03/23 15:38 KW Document 10/08/23 14:43 BMF Desktop 10/08/23 14:55 BMF Document 10/10/23 14:38 KW Desktop 10/10/23 14:51 KW Document 10/15/23 14:48 DL Desktop 10/15/23 15:05 DL Document 10/17/23 15:22 KW Desktop 10/17/23 15:28 KW 09/19/23 10/03/23 10/08/23 15:25 15:15 14:43 WC - Today's Visit Information Type of service Follow-up Visit Follow-up Visit Nurse-only (Physician/JOINTER OPERATOR (Physician/JOINTER OPERATOR Visit ) ) Arrival Mode Ambulatory Wheelchair Ambulatory Arrival Mode (Other) Transfer Assistance None Patient Identification Verified (Name & Yes Yes ) Patient Requires Transmission-Based No Precautions Height and Weight Body Mass Index (BMI) 62.5 62.5 62.5 BMI Classification Obese Obese Obese Vital Signs Temperature (97.8 F-99.1 F) 97.3 F L Temperature Source Temporal Pulse Rate (60-100) 111 H 110 H 106 H Pulse Location Monitor Monitor Respiratory Rate (12-18) 18 20 H 16 Respiratory rate source Observation Observation Observation Oxygen Delivery Method Room Air Room Air Room Air Blood Pressure (90/60-120/80) 164/89 H 140/82 H 172/84 H Blood Pressure Mean (mm Hg) 114 101 113 Source Monitor Monitor Monitor Position Sitting Sitting Sitting Blood Pressure Location Left Arm Left Forearm Left Forearm History Since Last Visit- (Skip if this is Patient's initial visit) Have you changed medications since your No No No last visit? Any new allergies or adverse reactions No No No Had a fall/change in ADL's that may No No No increase risk of falls Signs or symptoms of abuse and/or No No No neglect since last visit Have you been in the hospital since your No Yes No last visit? Has dressing in place as prescribed Yes Yes Yes Has compression in place as prescribed Yes Yes Yes Has offloadiing in place as prescribed No Yes N/A Experienced any changes in pain level or No No No management Left Footwear Regular Shoe Slipper Regular Shoe Right Footwear Regular Shoe Removable Cast Regular Shoe Walker/Walking Boot Pain Scale: 0-10 Numeric Is Patient Pain Free? Yes Yes Yes 10/10/23 10/15/23 10/17/23 14:38 14:48 15:22 WC - Today's Visit Information Type of service Follow-up Visit Nurse-only Follow-up Visit (Physician/JOINTER OPERATOR Visit (Physician/JOINTER OPERATOR ) ) Arrival Mode Ambulatory Ambulatory, Ambulatory, Walker Other Arrival Mode (Other) knee walker knee roller Transfer Assistance Patient Identification Verified (Name & Yes Yes Yes ) Patient Requires Transmission-Based No Precautions Height and Weight Body Mass Index (BMI) 62.5 62.5 62.5 BMI Classification Obese Obese Obese Vital Signs Temperature (97.8 F-99.1 F) 96.8 F L 98.3 F 96.6 F L Temperature Source Temporal Temporal Temporal Pulse Rate (60-100) 108 H 116 H 119 H Pulse Location Monitor Monitor Monitor Respiratory Rate (12-18) 18 22 H 20 H Respiratory rate source Observation Observation Observation Oxygen Delivery Method Room Air Room Air Blood Pressure (90/60-120/80) 158/79 H 164/80 H 169/93 H Blood Pressure Mean (mm Hg) 105 108 118 Source Monitor Monitor Monitor Position Semi-Fowlers Sitting Blood Pressure Location Right Forearm Right Arm History Since Last Visit- (Skip if this is Patient's initial visit) Have you changed medications since your No No No last visit? Any new allergies or adverse reactions No No No Had a fall/change in ADL's that may No No No increase risk of falls Signs or symptoms of abuse and/or No No No neglect since last visit Have you been in the hospital since your No No No last visit? Has dressing in place as prescribed Yes Yes Yes Has compression in place as prescribed Yes Yes Yes Has offloadiing in place as prescribed No N/A Yes Experienced any changes in pain level or No No No management Left Footwear Regular Shoe Regular Shoe Right Footwear Regular Shoe Regular Shoe Pain Scale: 0-10 Numeric Is Patient Pain Free? Yes Yes Yes WC - Nurse 1 - General Ulcer Measurement Start: 09/19/23 15:25 Freq: Status: Active Protocol: Activity Type Activity Date Activity User E-sign Co-sign Detail Recorded Client Recorded Date Recorded By Document 09/19/23 15:25 KW Desktop 09/19/23 15:30 KW Document 10/03/23 15:15 KW Desktop 10/03/23 15:38 KW Document 10/08/23 14:43 BMF Desktop 10/08/23 14:55 BMF Document 10/10/23 14:38 KW Desktop 10/10/23 14:51 KW Document 10/15/23 14:48 DL Desktop 10/15/23 15:05 DL Document 10/17/23 15:22 KW Desktop 10/17/23 15:28 KW 09/19/23 10/03/23 10/08/23 15:25 15:15 14:43 Wound Center Nurse 1 #1 R post LE- post-op cluster -Current Size (cm) - Length 0.1 -Current Size (cm) - Width 0.1 -Current Size (cm) - Depth 0.1 -Total Square Cm 0.01 -Date of Last Picture (Recall this field) -Photo Taken -Exudate Amt Small -Exudate Type Serosanguineous -Wound Margin Distinct, Outline Attached -Granulation Amt Medium (34-66%) -Granulation Quality [place] -Necrosis Amt Medium (34-66%) -Necrotic Tissue Type Adherent Slough -Texture (Rachele-wound Skin Appearance) Assessed Assessed -Moisture (R[place]le-wound Skin Appearance) Maceration Assessed -Color (Rachele-wound Skin Appearance) Assessed Assessed -Temperature ([place]le-wound Skin No Abnormality Appearance) (Pt Warm) -Tenderness on Palpation ([place]achele-wound Skin Appearance) -Ulcer Cleansing Rinsed/ Soap and Water Irrigated with Saline -Foul Odor after Cleansing -Anesthetic Used 5% Lidocaine Gel -Wound Comment(s) post surg. left wound viel in tact Lower Limb Edema Present Yes Right Calf (cm) 66.3 59.3 58 Right Ankle (cm) 33 33.5 29.9 01/24/24 01/29/24 01/31/24 14:38 14:48 15:22 Wound Center Nurse 1 #1 R post LE- post-op cluster -Current Size (cm) - Length 2 -Current Size (cm) - Width 0.6 -Current Size (cm) - Depth 0.3 -Total Square Cm 1.2 -Date of Last Picture (Recall this 10/10/23 field) -Photo Taken Yes -Exudate Amt None Present Medium -Exudate Type Yellow/Green -Wound Margin Indistinct, Non Distinct, -Visible Outline Attached -Granulation Amt Small (1-33%) -Granulation Quality [place] -Necrosis Amt Large (67-100%) -Necrotic Tissue Type Adherent Slough -Texture (Rachele-wound Skin Appearance) No Abnormality Assessed -Moisture ([place]le-wound Skin Appearance) Maceration No Abnormality Assessed -Color ([place]achele-wound Skin Appearance) No Abnormality Assessed -Temperature ([place]-wound Skin No Abnormality No Abnormality Appearance) (Pt Warm) (Pt Warm) -Tenderness on Palpation (Rachele-wound No Skin Appearance) -Ulcer Cleansing Soap and Water Soap and Water -Foul Odor after Cleansing No -Anesthetic Used 5% Lidocaine Gel -Wound Comment(s) Sutures intact, Steri Strip drainage and intact maceration noted Lower Limb Edema Present Right Calf (cm) 59.5 61 Right Ankle (cm) 41.5 30.2 WC - Nurse 2 - General Ulcer CM Notes Start: 09/19/23 15:25 Freq: Status: Active Protocol: Activity Type Activity Date Activity User E-sign Co-sign Detail Recorded Client Recorded Date Recorded By Document 09/19/23 15:37 [employer] Desktop 09/19/23 15:41 Document 10/03/23 15:46 Laptop 10/03/23 15:50 Document 10/10/23 15:33 Laptop 10/10/23 15:38 Document 10/17/23 15:43 Laptop 10/17/23 15:48 09/19/23 10/03/23 10/10/23 15:37 15:46 15:33 Wound Center Nurse 2 #1 R post LE- post-op cluster -Time 15:37 15:34 -Correct Patient Yes No No -Correct Side, Site, Position Yes No No -Correct Procedure Yes No No -Procedure Performed Yes No No -Type of Procedure Debridement -Clinical Debridement Subcutaneous -Tissue Removed Subcutaneous -Post Debridement (cm) - Length 0.4 -Post Debridement (cm) - Width 0.9 -Post Debridement (cm) - Depth 0.2 -Total Square (Post) (cm) 0.36 -Area of Debridement (cm) - Length 0.4 -Area of Debridement (cm) - Width 0.9 -Total Square (Area) (cm) 0.36 -Tunneling No No -Undermining/Tunneling No No -Circular Undermining No No -Wound/Ulcer Outcome Not Healed Not Healed Not Healed -Ulcer Cleansing Rinsed/ Rinsed/ Irrigated with Irrigated with Saline Saline -Foul Odor after Cleansing No No -Bioengineered Tissue No No -Bleeding Controlled with Pressure Pressure -Treatment Response Procedure Procedure Tolerated Well Tolerated Well -Offloading No No -Debridement - Subq, 1st 20sq cm Yes No No Pain Scale: 0-10 Numeric Is Patient Pain Free? Yes Yes Yes 10/17/23 15:43 Wound Center Nurse 2 #1 R post LE- post-op cluster -Time 15:44 -Correct Patient Yes -Correct Side, Site, Position Yes -Correct Procedure Yes -Procedure Performed Yes -Type of Procedure Debridement -Clinical Debridement Subcutaneous -Tissue Removed Subcutaneous -Post Debridement (cm) - Length 1.6 -Post Debridement (cm) - Width 1.4 -Post Debridement (cm) - Depth 0.8 -Total Square (Post) (cm) 2.24 -Area of Debridement (cm) - Length 1.6 -Area of Debridement (cm) - Width 1.4 -Total Square (Area) (cm) 2.24 -Tunneling No -Undermining/Tunneling No -Circular Undermining No -Wound/Ulcer Outcome Not Healed -Ulcer Cleansing Rinsed/ Irrigated with Saline -Foul Odor after Cleansing No -Bioengineered Tissue No -Bleeding Controlled with Pressure -Treatment Response -Offloading -Debridement - Subq, 1st 20sq cm Yes Pain Scale: 0-10 Numeric Is Patient Pain Free? Yes - Nurse 3 - General Ulcer D/C NN Start: 09/19/23 15:25 Freq: Status: Active Protocol: Activity Type Activity Date Activity User E-sign Co-sign Detail Recorded Client Recorded Date Recorded By Document 09/19/23 15:49 KW Desktop 09/19/23 15:49 KW Document 10/03/23 15:55 KW Desktop 10/03/23 15:56 KW Document 10/08/23 14:43 BMF Desktop 10/08/23 14:55 BMF Document 10/10/23 15:43 BMF Desktop 10/10/23 15:44 BMF Document 10/15/23 14:48 DL Desktop 10/15/23 15:05 DL Document 10/17/23 15:57 KW Desktop 10/17/23 15:58 KW 09/19/23 10/03/23 10/08/23 15:49 15:55 14:43 Wound Care Center Nurse 3 #1 R post LE- post-op cluster -Ulcer Cleansing Soap and Water -Foul Odor after Cleansing No -Primary Dressing Applied C Hydrogel ($) NonAdherent NonAdherent Contact Layer, Contact Layer Other -Other Dressing betadine BETADINE, ADAPTIC, BETADINE SOAKED GAUZE, ABD -Primary Dressing Covered/Secured with Dry Gauze, Dry Gauze & Secured with Roll Gauze, Tape Secured with Tape Right -Lotion applied to leg before Yes compression wrap -Multi-Layered Wrap Application Multi-Layer Multi-Layer Comp - Right ($ Comp - Right ($ ) ) -Tubular Bandage Double Layer -Size of Tubigrip Used Size F -Size F ($) 2 -Other Left -Tubular Bandage Double Layer -Size of Tubigrip Used Size F -Size F ($) 2 Treatment Response Procedure Tolerated Well Vital Signs Temperature (97.8 F-99.1 F) Temperature Source Pulse Rate (60-100) 106 H Pulse Location Monitor Respiratory Rate (12-18) 16 Respiratory rate source Observation Oxygen Delivery Method Room Air Blood Pressure (90/60-120/80) 172/84 H Blood Pressure Mean (mm Hg) 113 Source Monitor Position Sitting Blood Pressure Location Left Forearm Pain Scale: 0-10 Numeric Is Patient Pain Free? Yes Yes Yes WC - Visit Discharge Discharge Condition Stable Stable Ambulatory Status Ambulatory Wheelchair Ambulatory Transportation Private Auto Private Auto Private Auto Medication Reconcilliation completed & No No provided to patient/care provider Clinical Summary of Care Provided Yes Notes: 10/10/23 10/15/23 10/17/23 15:43 14:48 15:57 Wound Care Center Nurse 3 #1 R post LE- post-op cluster -Ulcer Cleansing Rinsed/ Soap and Water Irrigated with Saline -Foul Odor after Cleansing No No -Primary Dressing Applied -Other Dressing BETADINE SOAKED betadine soaked GAUZE; DRSG gauze PER GM RN -Primary Dressing Covered/Secured with Dry Gauze, Dry Gauze & Secured with Roll Gauze, Tape Secured with Tape Right -Lotion applied to leg before compression wrap -Multi-Layered Wrap Application Multi-Layer Multi-Layer Multi-Layer Comp - Right ($ Comp - Right ($ Comp - Right ($ ) ) ) -Tubular Bandage -Size of Tubigrip Used -Size F ($) -Other PER GM RN Left -Tubular Bandage Double Layer -Size of Tubigrip Used Size F -Size F ($) 2 Treatment Response Procedure Procedure Tolerated Well Tolerated Well Vital Signs Temperature (97.8 F-99.1 F) 98.3 F Temperature Source Temporal Pulse Rate (60-100) 116 H Pulse Location Monitor Respiratory Rate (12-18) 22 H Respiratory rate source Observation Oxygen Delivery Method Blood Pressure (90/60-120/80) 164/80 H Blood Pressure Mean (mm Hg) 108 Source Monitor Position Blood Pressure Location Pain Scale: 0-10 Numeric Is Patient Pain Free? Yes Yes Yes WC - Visit Discharge Discharge Condition Stable Stable Stable Ambulatory Status Ambulatory Walker Ambulatory Transportation Private Auto Private Auto Private Auto Medication Reconcilliation completed & No provided to patient/care provider Clinical Summary of Care Provided Yes Notes: using knee scooter Assessment/Plan Assessment/Plan (1) Non-pressure chronic ulcer of unspecified part of 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 All findings were discussed with the patient. All questions were answered to the patient's satisfaction. Excisional debridement down to and including subcutaneous tissue with a number 3 mm dermal curette to the right posterior calf. Predebridement measurement was 1.3 x 1.2 x 0.4 cm. Postdebridement measurement is 1.6 x 1.4 x 0.8 cm. The right calf ulceration was dressed with Betadine soaked gauze followed by dry sterile dressing and a 3M compression wrap for the right lower extremity. Patient was instructed to be nonweightbearing to right lower extremity with assistive knee scooter. She was understanding of this. Cultures were taken of the ulceration to rule out any infection prior to TheraSkin graft placement. We begin authorization for TheraSkin skin graft substitute. Follow-up at the wound care center with Dr. Lord in 1 week. (2) Lymphedema, not elsewhere classified: CODE(S): I89.0 - Lymphedema, not elsewhere classified (3) Acute painful diabetic polyneuropathy: CODE(S): E11.42 - Type 2 diabetes mellitus with diabetic polyneuropathy (4) Wound dehiscence, surgical: CODE(S): T81.31XA - Disruption of external operation (surgical) wound, not elsewhere classified, initial encounter
== END 2023-10-17 23:59 | disposition home or self-care (01) ==
LOC: WC 15:15
PROVIDERS: PCP Internal Medicine; Referring Provider Internal Medicine; Visit Provider Podiatrist Foot & Ankle Surgery
DX: E11.622 Type 2 diabetes mellitus with other skin ulcer (principal); L97.212 Non-pressure chronic ulcer of right calf with fat layer exposed; E11.42 Type 2 diabetes mellitus with diabetic polyneuropathy; Z79.4 Long term (current) use of insulin; E83.59 Other disorders of calcium metabolism; I89.0 Lymphedema, not elsewhere classified; T81.31XA Disruption of external operation (surgical) wound, not elsewhere classified, initial encounter; F17.200 Nicotine dependence, unspecified, uncomplicated; Z79.82 Long term (current) use of aspirin; Z79.84 Long term (current) use of oral hypoglycemic drugs; Z79.899 Other long term (current) drug therapy
CPT/HCPCS: 11042; 29581; 87070; 87075; 87077; 87101; 87186; 87205; 99213; G0463

== ENCOUNTER 2023-11-14 14:45 | Outpatient (RCR) | payer MEDICAID, SELFPAY ==
[2023-10-18 00:13] VITALS: BP 169/93; PULSE 119; RESP 20; TEMP 35.9; BMI 62.5
[2023-10-24 15:05] VITALS: BP 185/92; PULSE 103; RESP 18; TEMP 35.9; BMI 62.5
--- NOTE | 2023-10-24 15:51 | PN.PCM_ITS ---
History of Present Illness Date of Service: 10/24/23 Chief Complaint: Ulceration right posterior leg History of Wound: Ulceration right posterior leg Subjective Subjective Ms. Rodriguez is a 43-year-old diabetic female presenting to the wound care center today for follow-up and evaluation status post incision and drainage with delayed primary closure to the posterior aspect of the right calf full-thickness ulceration. Date of surgery: 09/28/2023. Patient admitts her pain is improved. Patient states she has been nonweightbearing to the right lower extremity assistive knee scooter. She has kept her 3M dressing clean dry and intact sharath es any strikethrough. Denies trauma denies constitutional symptoms. No other pedal complaints at this time.. Objective Data Objective Data Vital Signs: Vital Signs Temp Pulse Resp BP O2 Del Method 96.6 F L 103 H 18 185/92 H Room Air 10/24/23 15:05 10/24/23 15:05 10/24/23 15:05 10/24/23 15:05 10/24/23 15:05 Oxygen Delivery Method Room Air Weight: 160.223 kg Body Mass Index (BMI) 62.5 Physical Exam Narrative Vascular: DP and PT pulses palpable. CFT is brisk. Nonpitting edema appreciated to right lower extremity. No erythema or proximal streaking is appreciated. Neurological: Light touch intact. Patient response to painful stimuli. Dermatological: Evidence of surgical wound dehiscence secondary to nonweightbearing and lack of medical compliance. Full-thickness ulceration measures 1.5 x 2.4 x 1.4 cm. Wound base is granular nature with sanguinous drainage after debridement. No evidence of erythema or proximal streaking. Cannot rule out infection at this time. Excisional debridement down to and including subcutaneous tissue with a number 3 mm dermal curette to the right posterior calf. Predebridement measurement was 1.3 x 2.2 x 0.6 cm. Postdebridement measurement is 1.5 x 2.4 x 1.4 cm. Musculoskeletal: No pain with calf compression. Mild pain to palpation full- thickness ulceration right calf. Debridement Note Debridement Note Debridement Free Text: Excisional debridement down to and including subcutaneous tissue with a number 3 mm dermal curette to the right posterior calf. Predebridement measurement was 1.3 x 2.2 x 0.6 cm. Postdebridement measurement is 1.5 x 2.4 x 1.4 cm. 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 ) Arrival Mode Ambulatory, Other Arrival Mode (Other) knee roller Patient Identification Verified (Name & Yes ) Height and Weight Body Mass Index (BMI) 62.5 BMI Classification Obese Vital Signs Temperature (97.8 F-99.1 F) 96.6 F L Temperature Source Temporal Pulse Rate (60-100) 103 H Pulse Location Monitor Respiratory Rate (12-18) 18 Respiratory rate source Observation Oxygen Delivery Method Room Air Blood Pressure (90/60-120/80) 185/92 H Blood Pressure Mean (mm Hg) 123 Source Monitor Position Semi-Fowlers Blood Pressure Location Left Arm History Since Last Visit- (Skip if this is Patient's initial visit) Have you changed medications since your No last visit? Any new allergies or adverse reactions No Had a fall/change in ADL's that may No increase risk of falls Signs or symptoms of abuse and/or No neglect since last visit Have you been in the hospital since your No last visit? Has dressing in place as prescribed Yes Has compression in place as prescribed No Has offloadiing in place as prescribed No Experienced any changes in pain level or No management Left Footwear Regular Shoe Right Footwear Regular Shoe Pain Scale: 0-10 Numeric Is Patient Pain Free? Yes PANCHITO - Nurse 1 - General Ulcer Measurement Start: 10/24/23 15:05 Freq: Status: Active Protocol: Activity Type Activity Date Activity User E-sign Co-sign Detail Recorded Client Recorded Date Recorded By Document 10/24/23 15:05 KW Desktop 10/24/23 15:18 KW 10/24/23 15:05 Wound Center Nurse 1 #1 R post LE- post-op cluster -Current Size (cm) - Length 2.2 -Current Size (cm) - Width 0.5 -Current Size (cm) - Depth 0.2 -Total Square Cm 1.10 -Exudate Amt Medium -Exudate Type Yellow/Green -Wound Margin Distinct, Outline Attached -Granulation Amt Small (1-33%) -Granulation Quality [place] -Necrosis Amt Large (67-100%) -Necrotic Tissue Type Adherent Slough -Texture (Rachele-wound Skin Appearance) Assessed -Moisture (Rachele-wound Skin Appearance) Assessed -Color (Rachele-wound Skin Appearance) Assessed -Temperature (Rachele-wound Skin No Abnormality Appearance) (Pt Warm) -Ulcer Cleansing Rinsed/ Irrigated with Saline -Anesthetic Used 5% Lidocaine Gel Right Calf (cm) 62.2 Right Ankle (cm) 41 WC - Nurse 2 - General Ulcer CM Notes Start: 10/24/23 15:05 Freq: Status: Active Protocol: Activity Type Activity Date Activity User E-sign Co-sign Detail Recorded Client Recorded Date Recorded By Document 10/24/23 15:35 JF Laptop 10/24/23 15:37 JF 10/24/23 15:35 Wound Center Nurse 2 #1 R post LE- post-op cluster -Time 15:37 -Correct Patient Yes -Correct Side, Site, Position Yes -Correct Procedure Yes -Procedure Performed Yes -Type of Procedure Debridement -Clinical Debridement Muscle / Fascia -Tissue Removed Muscle -Post Debridement (cm) - Length 1.5 -Post Debridement (cm) - Width 2.4 -Post Debridement (cm) - Depth 1.4 -Total Square (Post) (cm) 3.60 -Area of Debridement (cm) - Length 1.5 -Area of Debridement (cm) - Width 2.4 -Total Square (Area) (cm) 3.60 -Tunneling No -Undermining/Tunneling No -Circular Undermining No -Wound/Ulcer Outcome Not Healed -Ulcer Cleansing Rinsed/ Irrigated with Saline -Foul Odor after Cleansing No -Bioengineered Tissue No -Bleeding Controlled with Pressure -Treatment Response Procedure Tolerated Well -Offloading Yes -Type of Offloading Knee Walker -Debridement - Muscle / Fascia, 1st Yes 20sq cm Pain Scale: 0-10 Numeric Is Patient Pain Free? Yes WC - Nurse 3 - General Ulcer D/C NN Start: 10/24/23 15:05 Freq: Status: Active Protocol: Activity Type Activity Date Activity User E-sign Co-sign Detail Recorded Client Recorded Date Recorded By Document 10/24/23 15:48 DL Desktop 10/24/23 15:49 DL 10/24/23 15:48 Wound Care Center Nurse 3 #1 R post LE- post-op cluster -Ulcer Cleansing Rinsed/ Irrigated with Saline -Foul Odor after Cleansing No -Other Dressing betadine -Primary Dressing Covered/Secured with Dry Gauze, Secured with Tape Right -Multi-Layered Wrap Application Multi-Layer Comp - Right ($ ) Treatment Response Procedure Tolerated Well Pain Scale: 0-10 Numeric Is Patient Pain Free? 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 All findings were discussed with the patient. All questions were answered to the patient's satisfaction. Excisional debridement down to and including subcutaneous tissue with a number 3 mm dermal curette to the right posterior calf. Predebridement measurement was 1.3 x 2.2 x 0.6 cm. Postdebridement measurement is 1.5 x 2.4 x 1.4 cm. The right lower extremity right calf full-thickness ulceration was wiped clean and patted dry. The ulceration was dressed with Betadine soaked gauze and dry sterile dressing with 3M compression wrap. Patient was instructed to follow-up if the wrap rolls down. She is to be nonweightbearing to the right lower extremity which she is doing so with a knee scooter. Patient educated on strict blood sugar control which she was understanding of. She will be placed on an antibiotic, ciprofloxacin 750 mg twice daily for 14 days. We are still pending skin graft substitute to the right posterior calf. Follow-up at the wound care center with Dr. Lord in 1 week. (2) Wound dehiscence, surgical: CODE(S): T81.31XA - Disruption of external operation (surgical) wound, not elsewhere classified, initial encounter QUALIFIERS: Encounter type: subsequent encounter Qualified Code(s): T81.31XD - Disruption of external operation (surgical) wound, not elsewhere classified, subsequent encounter (3) Lymphedema, not elsewhere classified: CODE(S): I89.0 - Lymphedema, not elsewhere classified (4) Cellulitis: CODE(S): L03.90 - Cellulitis, unspecified QUALIFIERS: Site of cellulitis: extremity Site of cellulitis of extremity: lower extremity Laterality: right Qualified Code(s): L03.115 - Cellulitis of right lower limb PLAN: The patient will be placed on Cipro 750 mg twice daily for 14 days. The patient's bacterial culture grew back Enterococcus Cloacae complex
[2023-10-29 11:18] VITALS: BP 145/76; PULSE 112; RESP 22; TEMP 36.4; BMI 62.5
[2023-10-31 10:06] VITALS: BP 160/81; PULSE 114; RESP 20; TEMP 35.7; BMI 62.5
--- NOTE | 2023-10-31 12:09 | PN.PCM_ITS ---
History of Present Illness Date of Service: 10/31/23 Chief Complaint: Ulceration right posterior leg History of Wound: Ulceration right posterior leg Subjective Subjective Ms. Rodriguez is a 43-year-old diabetic female presenting to the wound care center today for follow-up and evaluation status post incision and drainage with delayed primary closure to the posterior aspect of the right calf full-thickness ulceration. Date of surgery: 09/28/2023. Patient admitts her pain is improved. Patient states she has been nonweightbearing to the right lower extremity assistive knee scooter. She has kept her 3M dressing clean dry and intact sharath es any strikethrough. She is taking her antibiotic as written. She denies trauma. Denies constitutional symptoms. No other pedal complaints at this time. Objective Data Objective Data Vital Signs: Vital Signs Temp Pulse Resp BP O2 Del Method 96.2 F L 114 H 20 H 160/81 H Room Air 10/31/23 10:06 10/31/23 10:06 10/31/23 10:06 10/31/23 10:10/31/23 10:06 Oxygen Delivery Method Room Air Weight: 160.223 kg Body Mass Index (BMI) 62.5 Physical Exam Narrative Vascular: DP and PT pulses palpable. CFT is brisk. Nonpitting edema appreciated to right lower extremity. No erythema or proximal streaking is appreciated. Neurological: Light touch intact. Patient response to painful stimuli. Dermatological: Evidence of surgical wound dehiscence secondary to nonweightbearing and lack of medical compliance. Full-thickness ulceration measures 1.6 x 1.7 x 1.3 cm. Wound base is granular nature with sanguinous drainage after debridement. No evidence of erythema or proximal streaking. Cannot rule out infection at this time. Excisional debridement down to and including subcutaneous tissue with a number 3 mm dermal curette to the right posterior calf. Predebridement measurement was 1.3 x 1.5 x 0.8 cm. Postdebridement measurement is 1.6 x 1.7 x 1.3 cm. Application of TheraSkin skin substitute measuring 1.75 cm x 1.75 cm, 3 cm?, was applied to the full-thickness ulceration to the right posterior calf after debridement. First application, 100% of the TheraSkin was used. The TheraSkin was secured with Dermabond followed by nonadherent bandage secured in place w ith Steri-Strips followed by bolster dressing as well as a 3M compression wrap. Musculoskeletal: No pain with calf compression. Mild pain to palpation full- thickness ulceration right calf. Debridement Note Debridement Note Debridement Free Text: Excisional debridement down to and including subcutaneous tissue with a number 3 mm dermal curette to the right posterior calf. Predebridement measurement was 1.3 x 1.5 x 0.8 cm. Postdebridement measurement is 1.6 x 1.7 x 1.3 cm. Application of TheraSkin skin substitute measuring 1.75 cm x 1.75 cm, 3 cm?, was applied to the full-thickness ulceration to the right posterior calf after debridement. First application, 100% of the TheraSkin was used. The TheraSkin was secured with Dermabond followed by nonadherent bandage secured in place with Steri-Strips followed by bolster dressing as well as a 3M compression wrap. Post-Debridement Measurements and Additional Note: Post-Debridement Measurements/Treatment - Nurse 1 - General Ulcer Assessment Start: 10/24/23 15:05 Freq: Status: Active Protocol: WATSON Activity Type Activity Date Activity User E-sign Co-sign Detail Recorded Client Recorded Date Recorded By Document 10/24/23 15:05 KW Desktop 10/24/23 15:18 KW Document 10/29/23 11:18 DL Desktop 10/29/23 11:31 DL Document 10/31/23 10:06 GM Desktop 10/31/23 10:13 GM 10/24/23 10/29/23 10/31/23 15:05 11:18 10:06 - Today's Visit Information Type of service Follow-up Visit Nurse-only Follow-up Visit (Physician/ECONOMIC DEVELOPER Visit (Physician/ECONOMIC DEVELOPER ) ) Arrival Mode Ambulatory, Ambulatory Ambulatory, Other Other Arrival Mode (Other) knee roller Transfer Assistance None None Patient Identification Verified (Name & Yes Yes Yes ) Patient Requires Transmission-Based No No Precautions Safety Precautions NA Finger Stick Blood Sugar(mg/dl) (if 160 232 indicated): Blood Sugar Stated by Stated by Patient Patient Height and Weight Body Mass Index (BMI) 62.5 62.5 62.5 BMI Classification Obese Obese Obese Vital Signs Temperature (97.8 F-99.1 F) 96.6 F L 97.5 F L 96.2 F L Temperature Source Temporal Temporal Temporal Pulse Rate (60-100) 103 H 112 H 114 H Pulse Location Monitor Monitor Monitor Respiratory Rate (12-18) 18 22 H 20 H Respiratory rate source Observation Observation Observation Oxygen Delivery Method Room Air Room Air Blood Pressure (90/60-120/80) 185/92 H 145/76 H 160/81 H Blood Pressure Mean (mm Hg) 123 99 107 Source Monitor Monitor Monitor Position Semi-Fowlers Sitting Blood Pressure Location Left Arm Left Arm History Since Last Visit- (Skip if this is Patient's initial visit) Have you changed medications since your No No No last visit? Any new allergies or adverse reactions No No No Had a fall/change in ADL's that may No No No increase risk of falls Signs or symptoms of abuse and/or No No No neglect since last visit Have you been in the hospital since your No No No last visit? Has dressing in place as prescribed Yes Yes Yes Has compression in place as prescribed No Yes Yes Has offloadiing in place as prescribed No N/A Yes Experienced any changes in pain level or No No No management Left Footwear Regular Shoe Right Footwear Regular Shoe Pain Scale: 0-10 Numeric Is Patient Pain Free? Yes Yes Yes WC - Nurse 1 - General Ulcer Measurement Start: 10/24/23 15:05 Freq: Status: Active Protocol: Activity Type Activity Date Activity User E-sign Co-sign Detail Recorded Client Recorded Date Recorded By Document 10/24/23 15:05 KW Desktop 10/24/23 15:18 KW Document 10/29/23 11:18 DL Desktop 10/29/23 11:31 DL Document 10/31/23 10:06 Desktop 10/31/23 10:13 10/24/23 10/29/23 10/31/23 15:05 11:18 10:06 Wound Center Nurse 1 #1 R post LE- post-op cluster -Combined with other wound No -Current Size (cm) - Length 2.2 0.8 -Current Size (cm) - Width 0.5 0.8 -Current Size (cm) - Depth 0.2 0.5 -Total Square Cm 1.10 0.64 -Date of Last Picture (Recall this 10/31/23 field) -Photo Taken Yes -Epithelialization None Present -Tunneling No -Undermining/Tunneling No -Circular Undermining No -Exudate Amt Medium Small Medium -Exudate Type Yellow/Green Serosanguineous Serosanguineous -Wound Margin Distinct, Distinct, Distinct, Outline Outline Outline Attached Attached Attached -Granulation Amt Small (1-33%) Small (1-33%) -Granulation Quality [place] Red -Necrosis Amt Large (67-100%) -Necrotic Tissue Type Adherent Slough -Structure Exposed N/A N/A -Texture (Rachele-wound Skin Appearance) Assessed No Abnormality Assessed -Moisture (Rachele-wound Skin Appearance) Assessed Maceration Assessed, Maceration -Color (Rachele-wound Skin Appearance) Assessed No Abnormality Assessed -Temperature (Rachele-wound Skin No Abnormality No Abnormality No Abnormality Appearance) (Pt Warm) (Pt Warm) (Pt Warm) -Tenderness on Palpation (Rachele-wound No Skin Appearance) -Ulcer Cleansing Rinsed/ Soap and Water Soap and Water Irrigated with Saline -Foul Odor after Cleansing No No -Anesthetic Used 5% Lidocaine 5% Lidocaine Gel Gel Right Calf (cm) 62.2 62 60.8 Right Ankle (cm) 41 30.5 30.2 - Nurse 2 - General Ulcer CM Notes Start: 10/24/23 15:05 Freq: Status: Active Protocol: Activity Type Activity Date Activity User E-sign Co-sign Detail Recorded Client Recorded Date Recorded By Document 10/24/23 15:35 [employer] Laptop 10/24/23 15:37 Document 10/31/23 10:38 Laptop 10/31/23 10:40 10/24/23 10/31/23 15:35 10:38 Wound Center Nurse 2 #1 R post LE- post-op cluster -Time 15:37 10:38 -Correct Patient Yes Yes -Correct Side, Site, Position Yes Yes -Correct Procedure Yes Yes -Procedure Performed Yes Yes -Type of Procedure Debridement Debridement -Clinical Debridement Muscle / Fascia Muscle / Fascia -Tissue Removed Muscle Muscle -Post Debridement (cm) - Length 1.5 1.6 -Post Debridement (cm) - Width 2.4 1.7 -Post Debridement (cm) - Depth 1.4 1.3 -Total Square (Post) (cm) 3.60 2.72 -Area of Debridement (cm) - Length 1.5 1.6 -Area of Debridement (cm) - Width 2.4 1.7 -Total Square (Area) (cm) 3.60 2.72 -Tunneling No No -Undermining/Tunneling No No -Circular Undermining No No -Wound/Ulcer Outcome Not Healed Not Healed -Ulcer Cleansing Rinsed/ Rinsed/ Irrigated with Irrigated with Saline Saline -Foul Odor after Cleansing No No -Bioengineered Tissue No Yes -Type of Bioengineered Tissue Theraskin -Expiration Date 04/26/28 -Product Lot Number [id number] -Percent Used 100 -Lot number of Saline Used [id number] -Bleeding Controlled with Pressure Pressure -Treatment Response Procedure Procedure Tolerated Well Tolerated Well -Offloading Yes No -Type of Offloading Knee Walker -Debridement - Subq, 1st 20sq cm No -Debridement - Muscle / Fascia, 1st Yes No 20sq cm -Apply Skin Sub - 1st 25 sq cm - Legs 1 -[place]askin - 3TS (3 SQ CM) (per sq cm) 3 Pain Scale: 0-10 Numeric Is Patient Pain Free? Yes Yes WC - Nurse 3 - General Ulcer D/C NN Start: 10/24/23 15:05 Freq: Status: Active Protocol: Activity Type Activity Date Activity User E-sign Co-sign Detail Recorded Client Recorded Date Recorded By Document 10/24/23 15:48 DL Desktop 10/24/23 15:49 DL Document 10/29/23 11:18 DL Desktop 10/29/23 11:31 DL Document 10/31/23 10:48 KW Desktop 10/31/23 10:49 KW 10/24/23 10/29/23 10/31/23 15:48 11:18 10:48 Wound Care Center Nurse 3 #1 R post LE- post-op cluster -Ulcer Cleansing Rinsed/ Soap and Water Irrigated with Saline -Foul Odor after Cleansing No No -Primary Dressing Applied Optilok 6.5x10 -Other Dressing betadine betadine -Primary Dressing Covered/Secured with Dry Gauze, Dry Gauze, Dry Gauze & Secured with Secured with Roll Gauze, Tape Tape Secured with Tape -Optilok 6.5x10 1 Left -Lotion applied to leg before Yes compression wrap Right -Multi-Layered Wrap Application Multi-Layer Multi-Layer Multi-Layer Comp - Right ($ Comp - Right ($ Comp - Right ($ ) ) ) Treatment Response Procedure Procedure Tolerated Well Tolerated Well Vital Signs Temperature (97.8 F-99.1 F) 97.5 F L Temperature Source Temporal Pulse Rate (60-100) 112 H Pulse Location Monitor Respiratory Rate (12-18) 22 H Respiratory rate source Observation Blood Pressure (90/60-120/80) 145/76 H Blood Pressure Mean (mm Hg) 99 Source Monitor Pain Scale: 0-10 Numeric Is Patient Pain Free? 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 All findings were discussed with the patient. All questions were answered to the patient's satisfaction. Excisional debridement down to and including subcutaneous tissue with a number 3 mm dermal curette to the right posterior calf. Predebridement measurement was 1.3 x 1.5 x 0.8 cm. Postdebridement measurement is 1.6 x 1.7 x 1.3 cm. Application of TheraSkin skin substitute measuring 1.75 cm x 1.75 cm, 3 cm?, was applied to the full-thickness ulceration to the right posterior calf after debridement. First application, 100% of the TheraSkin was used. The TheraSkin was secured with Dermabond followed by nonadherent bandage secured in place with Steri-Strips followed by bolster dressing as well as a 3M compression wrap. Follow-up at the wound care center with Dr. Lord in 1 week. (2) Wound dehiscence, surgical: CODE(S): T81.31XA - Disruption of external operation (surgical) wound, not elsewhere classified, initial encounter QUALIFIERS: Encounter type: subsequent encounter Qualified Code(s): T81.31XD - Disruption of external operation (surgical) wound, not elsewhere classified, subsequent encounter (3) Lymphedema, not elsewhere classified: CODE(S): I89.0 - Lymphedema, not elsewhere classified (4) Acute painful diabetic polyneuropathy: CODE(S): E11.42 - Type 2 diabetes mellitus with diabetic polyneuropathy PLAN: Patient mitts to being well-controlled and admits that her blood sugar was 161 mg/dL today. She will continue to provide blood sugar readings with every visit and will continue to keep her blood sugar around 100 to 150 mg/dL.
[2023-11-07 10:07] VITALS: BP 147/92; PULSE 112; RESP 18; BMI 62.5
--- NOTE | 2023-11-07 12:04 | PCM.WC.PN ---
History of Present Illness Date of Service: 11/07/23 Chief Complaint: Ulceration right posterior leg History of Wound: Ulceration right posterior leg Subjective Subjective Ms. Rodriguez is a 43-year-old diabetic female presenting to the wound care center today for follow-up and evaluation status post incision and drainage with delayed primary closure to the posterior aspect of the right calf full-thickness ulceration. Date of surgery: 09/28/2023. Patient did admit to being noncompliant during her postoperative phase. She is presenting today for follow-up and evaluation of skin graft substitute to the posterior aspect of the right calf. She has been nonweightbearing using a knee scooter she has kept her wrap clean dry and intact. Denies any constitutional symptoms. She does admit to falling at home bumping her face but did not blackout or see stars and she did not present to the emergency department for evaluation. She is not on a blood thinner at this time. No other pedal complaints at this time. Objective Data Objective Data Vital Signs: Vital Signs Temp Pulse Resp BP O2 Del Method 96.2 F L 112 H 18 147/92 H Room Air 10/31/23 10:06 11/07/23 10:07 11/07/23 10:07 11/07/23 10:07 11/07/23 10:07 Oxygen Delivery Method Room Air Weight: 160.223 kg Body Mass Index (BMI) 62.5 Physical Exam Narrative Vascular: DP and PT pulses palpable. CFT is brisk. Nonpitting edema appreciated to right lower extremity. No erythema or proximal streaking is appreciated. Neurological: Light touch intact. Patient response to painful stimuli. Dermatological: Evidence of surgical wound dehiscence secondary to nonweightbearing and lack of medical compliance. Full-thickness ulceration measures 2.2 x 1.8 x 0.6 cm. Wound base is granular nature with sanguinous drainage after debridement. No evidence of erythema or proximal streaking. Cannot rule out infection at this time. Excisional debridement down to and including subcutaneous tissue with a number 3 mm dermal curette to the right posterior calf. Predebridement measurement was 2.0 x 1.6 x 0.4 cm. Postdebridement measurement is 2.2 x 1.8 x 0.6 cm. Application of TheraSkin skin substitute measuring 1.75 cm x 1.75 cm, 3 cm?, was applied to the full-thickness ulceration to the right posterior calf after debridement. Second application, 100% of the TheraSkin was used. The TheraSkin was secured with Dermabond followed by nonadherent bandage secured in place with Steri-Strips followed by bolster dressing as well as a 3M compression wrap. Musculoskeletal: No pain with calf compression. Mild pain to palpation full-thickness ulceration right calf. Debridement Note Debridement Note Debridement Free Text: Excisional debridement down to and including subcutaneous tissue with a number 3 mm dermal curette to the right posterior calf. Predebridement measurement was 2.0 x 1.6 x 0.4 cm. Postdebridement measurement is 2.2 x 1.8 x 0.6 cm. Application of TheraSkin skin substitute measuring 1.75 cm x 1.75 cm, 3 cm?, was applied to the full-thickness ulceration to the right posterior calf after debridement. Second application, 100% of the TheraSkin was used. The TheraSkin was secured with Dermabond followed by nonadherent bandage secured in place with Steri-Strips followed by bolster dressing as well as a 3M compression wrap. Post-Debridement Measurements and Additional Note: Post-Debridement Measurements/Treatment - Nurse 1 - General Ulcer Assessment Start: 10/24/23 15:05 Freq: Status: Active Protocol: WATSON Activity Type Activity Date Activity User E-sign Co-sign Detail Recorded Client Recorded Date Recorded By Document 10/24/23 15:05 KW Desktop 10/24/23 15:18 KW Document 10/29/23 11:18 DL Desktop 10/29/23 11:31 DL Document 10/31/23 10:06 GM Desktop 10/31/23 10:13 GM Document 11/07/23 10:07 KW Desktop 11/07/23 10:15 KW 10/24/23 10/29/23 10/31/23 15:05 11:18 10:06 - Today's Visit Information Type of service Follow-up Visit Nurse-only Follow-up Visit (Physician/TASSEL MAKING MACHINE OPERATOR Visit (Physician/TASSEL MAKING MACHINE OPERATOR ) ) Arrival Mode Ambulatory, Ambulatory Ambulatory, Other Other Arrival Mode (Other) knee roller Transfer Assistance None None Patient Identification Verified (Name & Yes Yes Yes ) Patient Requires Transmission-Based No No Precautions Safety Precautions NA Finger Stick Blood Sugar(mg/dl) (if 160 232 indicated): Blood Sugar Stated by Stated by Patient Patient Height and Weight Body Mass Index (BMI) 62.5 62.5 62.5 BMI Classification Obese Obese Obese Vital Signs Temperature (97.8 F-99.1 F) 96.6 F L 97.5 F L 96.2 F L Temperature Source Temporal Temporal Temporal Pulse Rate (60-100) 103 H 112 H 114 H Pulse Location Monitor Monitor Monitor Respiratory Rate (12-18) 18 22 H 20 H Respiratory rate source Observation Observation Observation Oxygen Delivery Method Room Air Room Air Blood Pressure (90/60-120/80) 185/92 H 145/76 H 160/81 H Blood Pressure Mean (mm Hg) 123 99 107 Source Monitor Monitor Monitor Position Semi-Fowlers Sitting Blood Pressure Location Left Arm Left Arm History Since Last Visit- (Skip if this is Patient's initial visit) Have you changed medications since your No No No last visit? Any new allergies or adverse reactions No No No Had a fall/change in ADL's that may No No No increase risk of falls Signs or symptoms of abuse and/or No No No neglect since last visit Have you been in the hospital since your No No No last visit? Has dressing in place as prescribed Yes Yes Yes Has compression in place as prescribed No Yes Yes Has offloadiing in place as prescribed No N/A Yes Experienced any changes in pain level or No No No management Left Footwear Regular Shoe Right Footwear Regular Shoe Pain Scale: 0-10 Numeric Is Patient Pain Free? Yes Yes Yes 11/07/23 10:07 WC - Today's Visit Information Type of service Follow-up Visit (Physician/TASSEL MAKING MACHINE OPERATOR ) Arrival Mode Ambulatory, Other Arrival Mode (Other) knee roller Transfer Assistance Patient Identification Verified (Name & Yes ) Patient Requires Transmission-Based Precautions Safety Precautions Finger Stick Blood Sugar(mg/dl) (if indicated): Blood Sugar Height and Weight Body Mass Index (BMI) 62.5 BMI Classification Obese Vital Signs Temperature (97.8 F-99.1 F) Temperature Source Pulse Rate (60-100) 112 H Pulse Location Monitor Respiratory Rate (12-18) 18 Respiratory rate source Observation Oxygen Delivery Method Room Air Blood Pressure (90/60-120/80) 147/92 H Blood Pressure Mean (mm Hg) 110 Source Monitor Position Sitting Blood Pressure Location Left Forearm History Since Last Visit- (Skip if this is Patient's initial visit) Have you changed medications since your No last visit? Any new allergies or adverse reactions No Had a fall/change in ADL's that may No increase risk of falls Signs or symptoms of abuse and/or No neglect since last visit Have you been in the hospital since your No last visit? Has dressing in place as prescribed Yes Has compression in place as prescribed Yes Has offloadiing in place as prescribed N/A Experienced any changes in pain level or No management Left Footwear Regular Shoe Right Footwear Regular Shoe Pain Scale: 0-10 Numeric Is Patient Pain Free? Yes WC - Nurse 1 - General Ulcer Measurement Start: 10/24/23 15:05 Freq: Status: Active Protocol: Activity Type Activity Date Activity User E-sign Co-sign Detail Recorded Client Recorded Date Recorded By Document 10/24/23 15:05 KW Desktop 10/24/23 15:18 KW Document 10/29/23 11:18 DL Desktop 10/29/23 11:31 DL Document 10/31/23 10:06 GM Desktop 10/31/23 10:13 GM Document 11/07/23 10:07 KW Desktop 11/07/23 10:15 KW 10/24/23 10/29/23 10/31/23 15:05 11:18 10:06 Wound Center Nurse 1 #1 R post LE- post-op cluster -Combined with other wound No -Current Size (cm) - Length 2.2 0.8 -Current Size (cm) - Width 0.5 0.8 -Current Size (cm) - Depth 0.2 0.5 -Total Square Cm 1.10 0.64 -Date of Last Picture (Recall this 10/31/23 field) -Photo Taken Yes -Epithelialization None Present -Tunneling No -Undermining/Tunneling No -Circular Undermining No -Exudate Amt Medium Small Medium -Exudate Type Yellow/Green Serosanguineous Serosanguineous -Wound Margin Distinct, Distinct, Distinct, Outline Outline Outline Attached Attached Attached -Granulation Amt Small (1-33%) Small (1-33%) -Granulation Quality [place] Red -Necrosis Amt Large (67-100%) -Necrotic Tissue Type Adherent Slough -Structure Exposed N/A N/A -Texture (Rachele-wound Skin Appearance) Assessed No Abnormality Assessed -Moisture (Rachele-wound Skin Appearance) Assessed Maceration Assessed, Maceration -Color (Rachele-wound Skin Appearance) Assessed No Abnormality Assessed -Temperature (Rachele-wound Skin No Abnormality No Abnormality No Abnormality Appearance) (Pt Warm) (Pt Warm) (Pt Warm) -Tenderness on Palpation (Rachele-wound No Skin Appearance) -Ulcer Cleansing Rinsed/ Soap and Water Soap and Water Irrigated with Saline -Foul Odor after Cleansing No No -Anesthetic Used 5% Lidocaine 5% Lidocaine Gel Gel Right Calf (cm) 62.2 62 60.8 Right Ankle (cm) 41 30.5 30.2 11/07/23 10:07 Wound Center Nurse 1 #1 R post LE- post-op cluster -Combined with other wound -Current Size (cm) - Length 2.3 -Current Size (cm) - Width 1.2 -Current Size (cm) - Depth 0.5 -Total Square Cm 2.76 -Date of Last Picture (Recall this field) -Photo Taken -Epithelialization -Tunneling -Undermining/Tunneling -Circular Undermining -Exudate Amt Medium -Exudate Type Serosanguineous -Wound Margin Distinct, Outline Attached -Granulation Amt Large (67-100%) -Granulation Quality [place] -Necrosis Amt Small (1-33%) -Necrotic Tissue Type Adherent Slough -Structure Exposed -Texture (Rachele-wound Skin Appearance) Assessed -Moisture (Rachele-wound Skin Appearance) Assessed, Maceration -Color (Rachele-wound Skin Appearance) Assessed -Temperature (Rachele-wound Skin No Abnormality Appearance) (Pt Warm) -Tenderness on Palpation (Rachele-wound Skin Appearance) -Ulcer Cleansing Soap and Water -Foul Odor after Cleansing -Anesthetic Used 5% Lidocaine Gel Right Calf (cm) 61.5 Right Ankle (cm) 43.5 - Nurse 2 - General Ulcer CM Notes Start: 10/24/23 15:05 Freq: Status: Active Protocol: Activity Type Activity Date Activity User E-sign Co-sign Detail Recorded Client Recorded Date Recorded By Document 10/24/23 15:35 Laptop 10/24/23 15:37 Document 10/31/23 10:38 Laptop 10/31/23 10:40 Document 11/07/23 10:50 Laptop 02/21/24 10:52 JF 10/24/23 10/31/23 11/07/23 15:35 10:38 10:50 Wound Center Nurse 2 #1 R post LE- post-op cluster -Time 15:37 10:38 10:51 -Correct Patient Yes Yes Yes -Correct Side, Site, Position Yes Yes Yes -Correct Procedure Yes Yes Yes -Procedure Performed Yes Yes Yes -Type of Procedure Debridement Debridement Debridement -Clinical Debridement Muscle / Fascia Muscle / Fascia Subcutaneous -Tissue Removed Muscle Muscle Muscle -Post Debridement (cm) - Length 1.5 1.6 2.2 -Post Debridement (cm) - Width 2.4 1.7 1.8 -Post Debridement (cm) - Depth 1.4 1.3 0.6 -Total Square (Post) (cm) 3.60 2.72 3.96 -Area of Debridement (cm) - Length 1.5 1.6 2.2 -Area of Debridement (cm) - Width 2.4 1.7 1.8 -Total Square (Area) (cm) 3.60 2.72 3.96 -Tunneling No No No -Undermining/Tunneling No No No -Circular Undermining No No No -Wound/Ulcer Outcome Not Healed Not Healed Not Healed -Ulcer Cleansing Rinsed/ Rinsed/ Rinsed/ Irrigated with Irrigated with Irrigated with Saline Saline Saline -Foul Odor after Cleansing No No No -Bioengineered Tissue No Yes Yes -Type of Bioengineered Tissue Theraskin Theraskin -Expiration Date 04/26/28 04/26/28 -Product Lot Number [id number] -Percent Used 100 100 -Lot number of Saline Used [id number] -Bleeding Controlled with Pressure Pressure Pressure -Treatment Response Procedure Procedure Procedure Tolerated Well Tolerated Well Tolerated Well -Offloading Yes No No -Type of Offloading Knee Walker -Debridement - Subq, 1st 20sq cm No No -Debridement - Muscle / Fascia, 1st Yes No 20sq cm -Apply Skin Sub - 1st 25 sq cm - Legs 1 1 -Theraskin - 3TS (3 SQ CM) (per sq cm) 3 3 Pain Scale: 0-10 Numeric Is Patient Pain Free? Yes Yes Yes WC - Nurse 3 - General Ulcer D/C NN Start: 10/24/23 15:05 Freq: Status: Active Protocol: Activity Type Activity Date Activity User E-sign Co-sign Detail Recorded Client Recorded Date Recorded By Document 10/24/23 15:48 DL Desktop 10/24/23 15:49 DL Document 10/29/23 11:18 DL Desktop 10/29/23 11:31 DL Document 10/31/23 10:48 KW Desktop 10/31/23 10:49 KW Document 11/07/23 10:59 KW Desktop 11/07/23 11:00 KW 10/24/23 10/29/23 10/31/23 15:48 11:18 10:48 Wound Care Center Nurse 3 #1 R post LE- post-op cluster -Ulcer Cleansing Rinsed/ Soap and Water Irrigated with Saline -Foul Odor after Cleansing No No -Primary Dressing Applied Optilok 6.5x10 -Other Dressing betadine betadine -Primary Dressing Covered/Secured with Dry Gauze, Dry Gauze, Dry Gauze & Secured with Secured with Roll Gauze, Tape Tape Secured with Tape -Optilok 6.5x10 1 Left -Lotion applied to leg before Yes compression wrap Right -Multi-Layered Wrap Application Multi-Layer Multi-Layer Multi-Layer Comp - Right ($ Comp - Right ($ Comp - Right ($ ) ) ) Treatment Response Procedure Procedure Tolerated Well Tolerated Well Vital Signs Temperature (97.8 F-99.1 F) 97.5 F L Temperature Source Temporal Pulse Rate (60-100) 112 H Pulse Location Monitor Respiratory Rate (12-18) 22 H Respiratory rate source Observation Blood Pressure (90/60-120/80) 145/76 H Blood Pressure Mean (mm Hg) 99 Source Monitor Pain Scale: 0-10 Numeric Is Patient Pain Free? Yes Yes Yes WC - Visit Discharge Discharge Condition Stable Stable Stable Ambulatory Status Ambulatory Ambulatory Ambulatory Transportation Private Auto Private Auto Private Auto Medication Reconcilliation completed & No provided to patient/care provider Clinical Summary of Care Provided Yes Notes: using a knee roller 11/07/23 10:59 Wound Care Center Nurse 3 #1 R post LE- post-op cluster -Ulcer Cleansing -Foul Odor after Cleansing -Primary Dressing Applied -Other Dressing -Primary Dressing Covered/Secured with Dry Gauze & Roll Gauze, Secured with Tape -Optilok 6.5x10 Left -Lotion applied to leg before compression wrap Right -Multi-Layered Wrap Application Multi-Layer Comp - Right ($ ) Treatment Response Vital Signs Temperature (97.8 F-99.1 F) Temperature Source Pulse Rate (60-100) Pulse Location Respiratory Rate (12-18) Respiratory rate source Blood Pressure (90/60-120/80) Blood Pressure Mean (mm Hg) Source Pain Scale: 0-10 Numeric Is Patient Pain Free? Yes WC - Visit Discharge Discharge Condition Stable Ambulatory Status Ambulatory Transportation Private Auto Medication Reconcilliation completed & No provided to patient/care provider Clinical Summary of Care Provided Yes Notes: uses a knee roller Assessment/Plan Assessment/Plan (1) Non-pressure chronic ulcer of unspecified part of 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 All findings were discussed with the patient. All questions were answered to the patient's satisfaction. Excisional debridement down to and including subcutaneous tissue with a number 3 mm dermal curette to the right posterior calf. Predebridement measurement was 2.0 x 1.6 x 0.4 cm. Postdebridement measurement is 2.2 x 1.8 x 0.6 cm. Application of TheraSkin skin substitute measuring 1.75 cm x 1.75 cm, 3 cm?, was applied to the full-thickness ulceration to the right posterior calf after debridement. Second application, 100% of the TheraSkin was used. The TheraSkin was secured with Dermabond followed by nonadherent bandage secured in place with Steri-Strips followed by bolster dressing as well as a 3M compression wrap. Follow-up at the wound care center with Dr. Lord in 1 week. (2) Wound dehiscence, surgical: CODE(S): T81.31XA - Disruption of external operation (surgical) wound, not elsewhere classified, initial encounter QUALIFIERS: Encounter type: subsequent encounter Qualified Code(s): T81.31XD - Disruption of external operation (surgical) wound, not elsewhere classified, subsequent encounter (3) Lymphedema, not elsewhere classified: CODE(S): I89.0 - Lymphedema, not elsewhere classified (4) Acute painful diabetic polyneuropathy: CODE(S): E11.42 - Type 2 diabetes mellitus with diabetic polyneuropathy PLAN: Patient admits that her blood sugar being well-controlled. She continue strict blood sugar control while in the healing phase of her surgical wound dehiscence.
[2023-11-12 13:14] VITALS: BP 144/80; PULSE 116; RESP 16; TEMP 36.6; BMI 62.5
[2023-11-14 14:45] VITALS: BP 168/91; PULSE 120; RESP 18; BMI 62.5
--- NOTE | 2023-11-14 15:28 | PCM.WC.PN ---
History of Present Illness Date of Service: 11/14/23 Chief Complaint: Ulceration right posterior leg History of Wound: Ulceration right posterior leg Subjective Subjective Ms. Rodriguez is a 43-year-old diabetic female presenting to the wound care center today for follow-up and evaluation status post incision and drainage with delayed primary closure to the posterior aspect of the right calf full-thickness ulceration. Date of surgery: 09/28/2023. Patient did admit to being noncompliant during her postoperative phase. She is presenting today for follow-up and evaluation of skin graft substitute to the posterior aspect of the right calf. She has been nonweightbearing using a knee scooter she has kept her wrap clean dry and intact. Denies any constitutional symptoms. She does admit to falling at home bumping her face but did not blackout or see stars and she did not present to the emergency department for evaluation. She is not on a blood thinner at this time. No other pedal complaints at this time. Objective Data Objective Data Vital Signs: Vital Signs Temp Pulse Resp BP O2 Del Method 98 F 120 H 18 168/91 H Room Air 11/12/23 13:14 11/14/23 14:45 11/14/23 14:45 11/14/23 14:45 11/14/23 14:45 Oxygen Delivery Method Room Air Weight: 160.223 kg Body Mass Index (BMI) 62.5 Physical Exam Narrative Vascular: DP and PT pulses palpable. CFT is brisk. Nonpitting edema appreciated to right lower extremity. No erythema or proximal streaking is appreciated. Neurological: Light touch intact. Patient response to painful stimuli. Dermatological: Evidence of surgical wound dehiscence secondary to nonweightbearing and lack of medical compliance. Full-thickness ulceration measures 1.7 x 2.2 x 0.6 cm. Wound base is granular nature with sanguinous drainage after debridement. No evidence of erythema or proximal streaking. Cannot rule out infection at this time. Excisional debridement down to and including subcutaneous tissue with a number 3 mm dermal curette to the right posterior calf. Predebridement measurement was 1.6 x 2.0 x 0.5cm. Postdebridement measurement is 1.7 x 2.2 x 0.6 cm. Application of TheraSkin skin substitute measuring 1.75 cm x 1.75 cm, 3 cm?, was applied to the full-thickness ulceration to the right posterior calf after debridement. Third application, 100% of the TheraSkin was used. The TheraSkin was secured with Dermabond followed by nonadherent bandage secured in place with Steri-Strips followed by bolster dressing as well as a 3M compression wrap. Musculoskeletal: No pain with calf compression. Mild pain to palpation full-thickness ulceration right calf. Debridement Note Debridement Note Post-Debridement Measurements and Additional Note: Post-Debridement Measurements/Treatment - Nurse 1 - General Ulcer Assessment Start: 10/24/23 15:05 Freq: Status: Active Protocol: [facility] Activity Type Activity Date Activity User E-sign Co-sign Detail Recorded Client Recorded Date Recorded By Document 10/24/23 15:05 KW Desktop 10/24/23 15:18 KW Document 10/29/23 11:18 DL Desktop 10/29/23 11:31 DL Document 10/31/23 10:06 GM Desktop 10/31/23 10:13 GM Document 11/07/23 10:07 KW Desktop 11/07/23 10:15 KW Document 11/12/23 13:14 BMF Desktop 11/12/23 13:16 BMF Document 11/14/23 14:45 KW Desktop 11/14/23 14:48 KW 10/24/23 10/29/23 10/31/23 15:05 11:18 10:06 - Today's Visit Information Type of service Follow-up Visit Nurse-only Follow-up Visit (Physician/STILL PHOTOGRAPHER Visit (Physician/STILL PHOTOGRAPHER ) ) Arrival Mode Ambulatory, Ambulatory Ambulatory, Other Other Arrival Mode (Other) knee roller Transfer Assistance None None Patient Identification Verified (Name & Yes Yes Yes ) Patient Requires Transmission-Based No No Precautions Safety Precautions NA Finger Stick Blood Sugar(mg/dl) (if 160 232 indicated): Blood Sugar Stated by Stated by Patient Patient Height and Weight Body Mass Index (BMI) 62.5 62.5 62.5 BMI Classification Obese Obese Obese Vital Signs Temperature (97.8 F-99.1 F) 96.6 F L 97.5 F L 96.2 F L Temperature Source Temporal Temporal Temporal Pulse Rate (60-100) 103 H 112 H 114 H Pulse Location Monitor Monitor Monitor Respiratory Rate (12-18) 18 22 H 20 H Respiratory rate source Observation Observation Observation Oxygen Delivery Method Room Air Room Air Blood Pressure (90/60-120/80) 185/92 H 145/76 H 160/81 H Blood Pressure Mean (mm Hg) 123 99 107 Source Monitor Monitor Monitor Position Semi-Fowlers Sitting Blood Pressure Location Left Arm Left Arm History Since Last Visit- (Skip if this is Patient's initial visit) Have you changed medications since your No No No last visit? Any new allergies or adverse reactions No No No Had a fall/change in ADL's that may No No No increase risk of falls Signs or symptoms of abuse and/or No No No neglect since last visit Have you been in the hospital since your No No No last visit? Has dressing in place as prescribed Yes Yes Yes Has compression in place as prescribed No Yes Yes Has offloadiing in place as prescribed No N/A Yes Experienced any changes in pain level or No No No management Left Footwear Regular Shoe Right Footwear Regular Shoe Pain Scale: 0-10 Numeric Is Patient Pain Free? Yes Yes Yes 11/07/23 11/12/23 11/14/23 10:07 13:14 14:45 WC - Today's Visit Information Type of service Follow-up Visit Nurse-only Follow-up Visit (Physician/STILL PHOTOGRAPHER Visit (Physician/STILL PHOTOGRAPHER ) ) Arrival Mode Ambulatory, Ambulatory, Ambulatory Other Walker Arrival Mode (Other) knee roller knee walker Transfer Assistance None Patient Identification Verified (Name & Yes Yes Yes ) Patient Requires Transmission-Based No No Precautions Safety Precautions Finger Stick Blood Sugar(mg/dl) (if 99 indicated): Blood Sugar Stated by Patient Height and Weight Body Mass Index (BMI) 62.5 62.5 62.5 BMI Classification Obese Obese Obese Vital Signs Temperature (97.8 F-99.1 F) 98 F Temperature Source Temporal Pulse Rate (60-100) 112 H 116 H 120 H Pulse Location Monitor Monitor Monitor Respiratory Rate (12-18) 18 16 18 Respiratory rate source Observation Observation Observation Oxygen Delivery Method Room Air Room Air Room Air Blood Pressure (90/60-120/80) 147/92 H 144/80 H 168/91 H Blood Pressure Mean (mm Hg) 110 101 116 Source Monitor Monitor Monitor Position Sitting Sitting Semi-Fowlers Blood Pressure Location Left Forearm Left Forearm Right Arm History Since Last Visit- (Skip if this is Patient's initial visit) Have you changed medications since your No No No last visit? Any new allergies or adverse reactions No No No Had a fall/change in ADL's that may No No No increase risk of falls Signs or symptoms of abuse and/or No No No neglect since last visit Have you been in the hospital since your No No No last visit? Has dressing in place as prescribed Yes Yes Yes Has compression in place as prescribed Yes Yes Yes Has offloadiing in place as prescribed N/A N/A N/A Experienced any changes in pain level or No No No management Left Footwear Regular Shoe Regular Shoe Regular Shoe Right Footwear Regular Shoe Regular Shoe Regular Shoe Pain Scale: 0-10 Numeric Is Patient Pain Free? Yes Yes Yes WC - Nurse 1 - General Ulcer Measurement Start: 10/24/23 15:05 Freq: Status: Active Protocol: Activity Type Activity Date Activity User E-sign Co-sign Detail Recorded Client Recorded Date Recorded By Document 10/24/23 15:05 KW Desktop 10/24/23 15:18 KW Document 10/29/23 11:18 DL Desktop 10/29/23 11:31 DL Document 10/31/23 10:06 GM Desktop 10/31/23 10:13 GM Document 11/07/23 10:07 KW Desktop 11/07/23 10:15 KW Document 11/12/23 13:14 BMF Desktop 11/12/23 13:16 BMF Document 11/14/23 14:45 KW Desktop 11/14/23 14:48 KW 10/24/23 10/29/23 10/31/23 15:05 11:18 10:06 Wound Center Nurse 1 #1 R post LE- post-op cluster -Combined with other wound No -Current Size (cm) - Length 2.2 0.8 -Current Size (cm) - Width 0.5 0.8 -Current Size (cm) - Depth 0.2 0.5 -Total Square Cm 1.10 0.64 -Date of Last Picture (Recall this 10/31/23 field) -Photo Taken Yes -Epithelialization None Present -Tunneling No -Undermining/Tunneling No -Circular Undermining No -Exudate Amt Medium Small Medium -Exudate Type Yellow/Green Serosanguineous Serosanguineous -Wound Margin Distinct, Distinct, Distinct, Outline Outline Outline Attached Attached Attached -Granulation Amt Small (1-33%) Small (1-33%) -Granulation Quality Sigurd Red -Slough/Fibrin -Necrosis Amt Large (67-100%) -Necrotic Tissue Type Adherent Slough -Structure Exposed N/A N/A -Texture (Rachele-wound Skin Appearance) Assessed No Abnormality Assessed -Moisture (Rachele-wound Skin Appearance) Assessed Maceration Assessed, Maceration -Color (Rachele-wound Skin Appearance) Assessed No Abnormality Assessed -Temperature (Rachele-wound Skin No Abnormality No Abnormality No Abnormality Appearance) (Pt Warm) (Pt Warm) (Pt Warm) -Tenderness on Palpation (Rachele-wound No Skin Appearance) -Ulcer Cleansing Rinsed/ Soap and Water Soap and Water Irrigated with Saline -Foul Odor after Cleansing No No -Anesthetic Used 5% Lidocaine 5% Lidocaine Gel Gel Lower Limb Edema Present Right Calf (cm) 62.2 62 60.8 Right Ankle (cm) 41 30.5 30.2 11/07/23 11/12/23 11/14/23 10:07 13:14 14:45 Wound Center Nurse 1 #1 R post LE- post-op cluster -Combined with other wound -Current Size (cm) - Length 2.3 2.3 -Current Size (cm) - Width 1.2 1.8 -Current Size (cm) - Depth 0.5 0.4 -Total Square Cm 2.76 4.14 -Date of Last Picture (Recall this field) -Photo Taken No -Epithelialization None Present -Tunneling No -Undermining/Tunneling No -Circular Undermining No -Exudate Amt Medium Medium -Exudate Type Serosanguineous Serosanguineous -Wound Margin Distinct, Distinct, Outline Outline Attached Attached -Granulation Amt Large (67-100%) Medium (34-66%) -Granulation Quality Sigurd Red -Slough/Fibrin Yes -Necrosis Amt Small (1-33%) Small (1-33%) -Necrotic Tissue Type Adherent Slough -Structure Exposed N/A -Texture (Rachele-wound Skin Appearance) Assessed Assessed, Scarring -Moisture (Rachele-wound Skin Appearance) Assessed, Assessed Maceration -Color (Rachele-wound Skin Appearance) Assessed Assessed -Temperature (Rachele-wound Skin No Abnormality No Abnormality Appearance) (Pt Warm) (Pt Warm) -Tenderness on Palpation (Rachele-wound No Skin Appearance) -Ulcer Cleansing Soap and Water Soap and Water -Foul Odor after Cleansing No -Anesthetic Used 5% Lidocaine 5% Lidocaine Gel Gel Lower Limb Edema Present Yes Yes Right Calf (cm) 61.5 62 62.3 Right Ankle (cm) 43.5 38.0 WC - Nurse 2 - General Ulcer CM Notes Start: 10/24/23 15:05 Freq: Status: Active Protocol: Activity Type Activity Date Activity User E-sign Co-sign Detail Recorded Client Recorded Date Recorded By Document 10/24/23 15:35 Laptop 10/24/23 15:37 Document 10/31/23 10:38 Volance Laptop 10/31/23 10:40 Document 11/07/23 10:50 Laptop 11/07/23 10:52 Document 11/14/23 15:14 Volance Laptop 11/14/23 15:19 10/24/23 10/31/23 11/07/23 15:35 10:38 10:50 Wound Center Nurse 2 #1 R post LE- post-op cluster -Time 15:37 10:38 10:51 -Correct Patient Yes Yes Yes -Correct Side, Site, Position Yes Yes Yes -Correct Procedure Yes Yes Yes -Procedure Performed Yes Yes Yes -Type of Procedure Debridement Debridement Debridement -Clinical Debridement Muscle / Fascia Muscle / Fascia Subcutaneous -Tissue Removed Muscle Muscle Muscle -Post Debridement (cm) - Length 1.5 1.6 2.2 -Post Debridement (cm) - Width 2.4 1.7 1.8 -Post Debridement (cm) - Depth 1.4 1.3 0.6 -Total Square (Post) (cm) 3.60 2.72 3.96 -Area of Debridement (cm) - Length 1.5 1.6 2.2 -Area of Debridement (cm) - Width 2.4 1.7 1.8 -Total Square (Area) (cm) 3.60 2.72 3.96 -Tunneling No No No -Undermining/Tunneling No No No -Circular Undermining No No No -Wound/Ulcer Outcome Not Healed Not Healed Not Healed -Ulcer Cleansing Rinsed/ Rinsed/ Rinsed/ Irrigated with Irrigated with Irrigated with Saline Saline Saline -Foul Odor after Cleansing No No No -Bioengineered Tissue No Yes Yes -Type of Bioengineered Tissue Theraskin Theraskin -Expiration Date 04/26/28 04/26/28 -Product Lot Number [id number] -Percent Used 100 100 -Lot number of Saline Used [id number] -Bleeding Controlled with Pressure Pressure Pressure -Treatment Response Procedure Procedure Procedure Tolerated Well Tolerated Well Tolerated Well -Offloading Yes No No -Type of Offloading Knee Walker -Debridement - Subq, 1st 20sq cm No No -Debridement - Muscle / Fascia, 1st Yes No 20sq cm -Apply Skin Sub - 1st 25 sq cm - Legs 1 1 -Theraskin - 3TS (3 SQ CM) (per sq cm) 3 3 Pain Scale: 0-10 Numeric Is Patient Pain Free? Yes Yes Yes 11/14/23 15:14 Wound Center Nurse 2 #1 R post LE- post-op cluster -Time 15:14 -Correct Patient Yes -Correct Side, Site, Position Yes -Correct Procedure Yes -Procedure Performed Yes -Type of Procedure Debridement -Clinical Debridement Subcutaneous -Tissue Removed Subcutaneous -Post Debridement (cm) - Length 1.7 -Post Debridement (cm) - Width 2.2 -Post Debridement (cm) - Depth 0.6 -Total Square (Post) (cm) 3.74 -Area of Debridement (cm) - Length 1.7 -Area of Debridement (cm) - Width 2.2 -Total Square (Area) (cm) 3.74 -Tunneling No -Undermining/Tunneling No -Circular Undermining No -Wound/Ulcer Outcome Not Healed -Ulcer Cleansing Rinsed/ Irrigated with Saline -Foul Odor after Cleansing No -Bioengineered Tissue Yes -Type of Bioengineered Tissue Theraskin -Expiration Date 07/03/28 -Product Lot Number [id number] -Percent Used 100 -Lot number of Saline Used [id number] -Bleeding Controlled with Pressure -Treatment Response Procedure Tolerated Well -Offloading No -Type of Offloading -Debridement - Subq, 1st 20sq cm No -Debridement - Muscle / Fascia, 1st 20sq cm -Apply Skin Sub - 1st 25 sq cm - Legs 1 -Theraskin - 3TS (3 SQ CM) (per sq cm) 3 Pain Scale: 0-10 Numeric Is Patient Pain Free? Yes WC - Nurse 3 - General Ulcer D/C NN Start: 10/24/23 15:05 Freq: Status: Active Protocol: Activity Type Activity Date Activity User E-sign Co-sign Detail Recorded Client Recorded Date Recorded By Document 10/24/23 15:48 DL Desktop 10/24/23 15:49 DL Document 10/29/23 11:18 DL Desktop 10/29/23 11:31 DL Document 10/31/23 10:48 KW Desktop 10/31/23 10:49 KW Document 11/07/23 10:59 KW Desktop 11/07/23 11:00 KW Document 11/12/23 13:14 BMF Desktop 11/12/23 13:16 BMF Document 11/14/23 15:02 KW Desktop 11/14/23 15:03 KW 10/24/23 10/29/23 10/31/23 15:48 11:18 10:48 Wound Care Center Nurse 3 #1 R post LE- post-op cluster -Ulcer Cleansing Rinsed/ Soap and Water Irrigated with Saline -Foul Odor after Cleansing No No -Primary Dressing Applied Optilok 6.5x10 -Other Dressing betadine betadine -Primary Dressing Covered/Secured with Dry Gauze, Dry Gauze, Dry Gauze & Secured with Secured with Roll Gauze, Tape Tape Secured with Tape -Optilok 6.5x10 1 -Wound Comment(s) Left -Lotion applied to leg before Yes compression wrap Right -Multi-Layered Wrap Application Multi-Layer Multi-Layer Multi-Layer Comp - Right ($ Comp - Right ($ Comp - Right ($ ) ) ) -Other BLE -Multi-Layered Wrap Application Treatment Response Procedure Procedure Tolerated Well Tolerated Well Vital Signs Temperature (97.8 F-99.1 F) 97.5 F L Temperature Source Temporal Pulse Rate (60-100) 112 H Pulse Location Monitor Respiratory Rate (12-18) 22 H Respiratory rate source Observation Oxygen Delivery Method Blood Pressure (90/60-120/80) 145/76 H Blood Pressure Mean (mm Hg) 99 Source Monitor Position Blood Pressure Location Pain Scale: 0-10 Numeric Is Patient Pain Free? Yes Yes Yes WC - Visit Discharge Discharge Condition Stable Stable Stable Ambulatory Status Ambulatory Ambulatory Ambulatory Transportation Private Auto Private Auto Private Auto Accompanied by Medication Reconcilliation completed & No provided to patient/care provider Clinical Summary of Care Provided Yes Notes: using a knee roller 11/07/23 11/12/23 11/14/23 10:59 13:14 15:02 Wound Care Center Nurse 3 #1 R post LE- post-op cluster -Ulcer Cleansing -Foul Odor after Cleansing -Primary Dressing Applied Optilok 6.5x10 -Other Dressing -Primary Dressing Covered/Secured with Dry Gauze & Dry Gauze & Roll Gauze, Roll Gauze, Secured with Secured with Tape Tape -Optilok 6.5x10 1 -Wound Comment(s) per jf rn Left -Lotion applied to leg before compression wrap Right -Multi-Layered Wrap Application Multi-Layer Multi-Layer Comp - Right ($ Comp - Right ($ ) ) -Other applied per jf rn BLE -Multi-Layered Wrap Application Multi-Layer Comp - Bilat ($ ) Treatment Response Procedure Tolerated Well Vital Signs Temperature (97.8 F-99.1 F) 98 F Temperature Source Temporal Pulse Rate (60-100) 116 H Pulse Location Monitor Respiratory Rate (12-18) 16 Respiratory rate source Observation Oxygen Delivery Method Room Air Blood Pressure (90/60-120/80) 144/80 H Blood Pressure Mean (mm Hg) 101 Source Monitor Position Sitting Blood Pressure Location Left Forearm Pain Scale: 0-10 Numeric Is Patient Pain Free? Yes Yes Yes WC - Visit Discharge Discharge Condition Stable Stable Stable Ambulatory Status Ambulatory Ambulatory Ambulatory, Wheelchair Transportation Private Auto Private Auto Accompanied by Medication Reconcilliation completed & No No provided to patient/care provider Clinical Summary of Care Provided Yes Yes Notes: uses a knee roller Assessment/Plan Assessment/Plan (1) Non-pressure chronic ulcer of unspecified part of 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 All findings were discussed with the patient. All questions were answered to the patient's satisfaction. Excisional debridement down to and including subcutaneous tissue with a number 3 mm dermal curette to the right posterior calf. Predebridement measurement was 1.6 x 2.0 x 0.5cm. Postdebridement measurement is 1.7 x 2.2 x 0.6 cm. Application of TheraSkin skin substitute measuring 1.75 cm x 1.75 cm, 3 cm?, was applied to the full-thickness ulceration to the right posterior calf after debridement. Third application, 100% of the TheraSkin was used. The TheraSkin was secured with Dermabond followed by nonadherent bandage secured in place with Steri-Strips followed by bolster dressing as well as a 3M compression wrap. Follow-up at the wound care center with Dr. Lord in 1 week. (2) Wound dehiscence, surgical: CODE(S): T81.31XA - Disruption of external operation (surgical) wound, not elsewhere classified, initial encounter QUALIFIERS: Encounter type: subsequent encounter Qualified Code(s): T81.31XD - Disruption of external operation (surgical) wound, not elsewhere classified, subsequent encounter (3) Lymphedema, not elsewhere classified: CODE(S): I89.0 - Lymphedema, not elsewhere classified (4) Acute painful diabetic polyneuropathy: CODE(S): E11.42 - Type 2 diabetes mellitus with diabetic polyneuropathy PLAN: Patient admits that her blood sugar being well-controlled. She continue strict blood sugar control while in the healing phase of her surgical wound dehiscence.
--- NOTE | 2023-11-23 12:26 | WC ---
2.14.24 RT POST LEG
== END 2023-11-15 23:59 | disposition home or self-care (01) ==
LOC: WC 14:45
PROVIDERS: PCP Internal Medicine; Referring Provider Internal Medicine; Visit Provider Podiatrist Foot & Ankle Surgery
DX: T81.31XA Disruption of external operation (surgical) wound, not elsewhere classified, initial encounter (principal); L97.213 Non-pressure chronic ulcer of right calf with necrosis of muscle; E11.42 Type 2 diabetes mellitus with diabetic polyneuropathy; Y83.8 Other surgical procedures as the cause of abnormal reaction of the patient, or of later complication, without mention of misadventure at the time of the procedure; L03.115 Cellulitis of right lower limb; I89.0 Lymphedema, not elsewhere classified; Z91.199 Patient's noncompliance with other medical treatment and regimen due to unspecified reason
CPT/HCPCS: 11043; 15271; 29581; Q4121

== ENCOUNTER 2023-12-12 14:45 | Outpatient (RCR) | payer MEDICAID, SELFPAY ==
[2023-11-16 00:08] VITALS: BP 168/91; PULSE 120; RESP 18; TEMP 36.6; BMI 62.5
[2023-11-19 14:23] VITALS: BP 150/81; PULSE 105; RESP 18; TEMP 35.9; BMI 62.5
[2023-11-21 15:02] VITALS: BP 156/90; PULSE 101; RESP 24; TEMP 35.9; BMI 62.5
--- NOTE | 2023-11-21 16:42 | PCM.WC.PN ---
History of Present Illness Date of Service: 11/21/23 Chief Complaint: Ulceration right posterior leg History of Wound: Ulceration right posterior leg Subjective Subjective Ms. Rodriguez is a 43-year-old diabetic female presenting to the wound care center today for follow-up and evaluation status post incision and drainage with delayed primary closure to the posterior aspect of the right calf full-thickness ulceration. Date of surgery: 09/28/2023. Patient did admit to being noncompliant during her postoperative phase. She is presenting today for follow-up and evaluation of skin graft substitute to the posterior aspect of the right calf. She has been nonweightbearing using a knee scooter she has kept her wrap clean dry and intact. Denies any constitutional symptoms. She does admit to falling at home bumping her face but did not blackout or see stars and she did not present to the emergency department for evaluation. She is not on a blood thinner at this time. No other pedal complaints at this time. Objective Data Objective Data Vital Signs: Vital Signs Temp Pulse Resp BP O2 Del Method 96.7 F L 101 H 24 H 156/90 H Room Air 11/21/23 15:02 11/21/23 15:02 11/21/23 15:02 11/21/23 15:02 11/19/23 14:23 Oxygen Delivery Method Room Air Weight: 160.223 kg Body Mass Index (BMI) 62.5 Physical Exam Narrative Vascular: DP and PT pulses palpable. CFT is brisk. Nonpitting edema appreciated to right lower extremity. No erythema or proximal streaking is appreciated. Neurological: Light touch intact. Patient response to painful stimuli. Dermatological: Evidence of surgical wound dehiscence secondary to nonweightbearing and lack of medical compliance. Full-thickness ulceration measures 1.7 x 2.0 x 0.5 cm. Wound base is granular nature with sanguinous drainage after debridement. No evidence of erythema or proximal streaking. Cannot rule out infection at this time. Excisional debridement down to and including subcutaneous tissue with a number 3 mm dermal curette to the right posterior calf. Predebridement measurement was 1.6 x 1.8 x 0.4 cm. Postdebridement measurement is 1.7 x 2.0 x 0.5 cm. Application of TheraSkin skin substitute measuring 1.75 cm x 1.75 cm, 3 cm?, was applied to the full-thickness ulceration to the right posterior calf after debridement. Fourth application, 100% of the TheraSkin was used. The TheraSkin was secured with Dermabond followed by nonadherent bandage secured in place with Steri-Strips followed by bolster dressing as well as a 3M compression wrap. Musculoskeletal: No pain with calf compression. Mild pain to palpation full-thickness ulceration right calf. Debridement Note Debridement Note Debridement Free Text: Excisional debridement down to and including subcutaneous tissue with a number 3 mm dermal curette to the right posterior calf. Predebridement measurement was 1.6 x 1.8 x 0.4 cm. Postdebridement measurement is 1.7 x 2.0 x 0.5 cm. Application of TheraSkin skin substitute measuring 1.75 cm x 1.75 cm, 3 cm?, was applied to the full-thickness ulceration to the right posterior calf after debridement. Fourth application, 100% of the TheraSkin was used. The TheraSkin was secured with Dermabond followed by nonadherent bandage secured in place with Steri-Strips followed by bolster dressing as well as a 3M compression wrap. Post-Debridement Measurements and Additional Note: Post-Debridement Measurements/Treatment - Nurse 1 - General Ulcer Assessment Start: 11/19/23 14:23 Freq: Status: Active Protocol: WATSON Activity Type Activity Date Activity User E-sign Co-sign Detail Recorded Client Recorded Date Recorded By Document 11/19/23 14:23 KW Desktop 11/19/23 14:55 KW Document 11/21/23 15:02 DL Desktop 11/21/23 15:11 DL 11/19/23 11/21/23 14:23 15:02 - Today's Visit Information Type of service Nurse-only Follow-up Visit Visit (Physician/[employer] ) Arrival Mode Ambulatory, Ambulatory, Other Walker Arrival Mode (Other) knee roller Transfer Assistance Stretcher Patient Identification Verified (Name & Yes Yes ) Patient Requires Transmission-Based No Precautions Finger Stick Blood Sugar(mg/dl) (if not checked indicated): Height and Weight Body Mass Index (BMI) 62.5 62.5 BMI Classification Obese Obese Vital Signs Temperature (97.8 F-99.1 F) 96.6 F L 96.7 F L Temperature Source Temporal Temporal Pulse Rate (60-100) 105 H 101 H Pulse Location Monitor Monitor Respiratory Rate (12-18) 18 24 H Respiratory rate source Observation Oxygen Delivery Method Room Air Blood Pressure (90/60-120/80) 150/81 H 156/90 H Blood Pressure Mean (mm Hg) 104 112 Source Monitor Monitor Position Semi-Fowlers Blood Pressure Location Left Arm History Since Last Visit- (Skip if this is Patient's initial visit) Have you changed medications since your No No last visit? Any new allergies or adverse reactions No No Had a fall/change in ADL's that may No No increase risk of falls Signs or symptoms of abuse and/or No No neglect since last visit Have you been in the hospital since your No No last visit? Has dressing in place as prescribed Yes Yes Has compression in place as prescribed Yes Yes Has offloadiing in place as prescribed Yes Yes Experienced any changes in pain level or No No management Left Footwear Slipper Regular Shoe Right Footwear Slipper Regular Shoe Pain Scale: 0-10 Numeric Is Patient Pain Free? Yes Yes WC - Nurse 1 - General Ulcer Measurement Start: 11/19/23 14:23 Freq: Status: Active Protocol: Activity Type Activity Date Activity User E-sign Co-sign Detail Recorded Client Recorded Date Recorded By Document 11/21/23 15:02 DL Desktop 11/21/23 15:11 DL 11/21/23 15:02 Wound Center Nurse 1 #1 R post LE- post-op cluster -Current Size (cm) - Length 2 -Current Size (cm) - Width 1.1 -Current Size (cm) - Depth 0.5 -Total Square Cm 2.2 -Exudate Amt Medium -Exudate Type Serosanguineous -Wound Margin Distinct, Outline Attached -Granulation Amt Large (67-100%) -Granulation Quality Red -Necrosis Amt Small (1-33%) -Necrotic Tissue Type Adherent Slough -Structure Exposed N/A -Texture (Rachele-wound Skin Appearance) Scarring -Moisture (Rachele-wound Skin Appearance) No Abnormality -Color (Rachele-wound Skin Appearance) No Abnormality -Ulcer Cleansing Soap and Water -Foul Odor after Cleansing No -Anesthetic Used 5% Lidocaine Gel Right Calf (cm) 63.3 Right Ankle (cm) 30.3 WC - Nurse 2 - General Ulcer CM Notes Start: 11/19/23 14:23 Freq: Status: Active Protocol: Activity Type Activity Date Activity User E-sign Co-sign Detail Recorded Client Recorded Date Recorded By Document 11/21/23 15:41 Desktop 11/21/23 15:42 11/21/23 15:41 Wound Center Nurse 2 #1 R post LE- post-op cluster -Time 15:41 -Correct Patient Yes -Correct Side, Site, Position Yes -Correct Procedure Yes -Procedure Performed Yes -Type of Procedure Debridement -Clinical Debridement Subcutaneous -Tissue Removed Subcutaneous -Post Debridement (cm) - Length 1.7 -Post Debridement (cm) - Width 2.0 -Post Debridement (cm) - Depth 0.5 -Total Square (Post) (cm) 3.40 -Area of Debridement (cm) - Length 1.7 -Area of Debridement (cm) - Width 2.0 -Total Square (Area) (cm) 3.40 -Tunneling No -Undermining/Tunneling No -Circular Undermining No -Wound/Ulcer Outcome Not Healed -Ulcer Cleansing Rinsed/ Irrigated with Saline -Foul Odor after Cleansing No -Bioengineered Tissue Yes -Type of Bioengineered Tissue Theraskin -Expiration Date 07/03/28 -Product Lot Number [id number] -Percent Used 100 -Lot number of Saline Used [id number] -Bleeding Controlled with Pressure -Treatment Response Procedure Tolerated Well -Offloading No -Debridement - Subq, 1st 20sq cm No -Apply Skin Sub - 1st 25 sq cm - Legs 1 -Theraskin - 3TS (3 SQ CM) (per sq cm) 3 Pain Scale: 0-10 Numeric Is Patient Pain Free? Yes - Nurse 3 - General Ulcer D/C NN Start: 11/19/23 14:23 Freq: Status: Active Protocol: Activity Type Activity Date Activity User E-sign Co-sign Detail Recorded Client Recorded Date Recorded By Document 11/19/23 14:55 KW Desktop 11/19/23 14:56 KW Document 11/21/23 15:58 [facility] Desktop 11/21/23 16:00 [facility] 11/19/23 11/21/23 14:55 15:58 Wound Care Center Nurse 3 #1 R post LE- post-op cluster -Ulcer Cleansing Soap and Water -Primary Dressing Applied Optilok 6.5x10 -Other Dressing [employer]TE[employer]RA/ THERASKIN -Primary Dressing Covered/Secured with Dry Gauze & Roll Gauze, Secured with Tape -Other Covering ABD -Optilok 6.5x10 1 Right -Multi-Layered Wrap Application Multi-Layer Multi-Layer Comp - Right ($ Comp - Right ($ ) ) Treatment Response Procedure Tolerated Well Pain Scale: 0-10 Numeric Is Patient Pain Free? Yes Yes WC - Visit Discharge Discharge Condition Stable Stable Ambulatory Status Ambulatory Ambulatory, Walker Transportation Private Auto Private Auto Accompanied by KNEE WALKER Medication Reconcilliation completed & No provided to patient/care provider Clinical Summary of Care Provided Yes Notes: uses a knee roller Assessment/Plan Assessment/Plan (1) Non-pressure chronic ulcer of unspecified part of 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 All findings were discussed with the patient. All questions were answered to the patient's satisfaction. Excisional debridement down to and including subcutaneous tissue with a number 3 mm dermal curette to the right posterior calf. Predebridement measurement was 1.6 x 1.8 x 0.4 cm. Postdebridement measurement is 1.7 x 2.0 x 0.5 cm. Amnionic skin graft was also placed into the patient's wound and allowed to dissolve prior to application of TheraSkin skin graft substitute. Application of TheraSkin skin substitute measuring 1.75 cm x 1.75 cm, 3 cm?, was applied to the full-thickness ulceration to the right posterior calf after debridement. Fourth application, 100% of the TheraSkin was used. The TheraSkin was secured with Dermabond followed by nonadherent bandage secured in place with Steri-Strips followed by bolster dressing as well as a 3M compression wrap. Follow-up at the wound care center with Dr. Lord in 1 week. (2) Wound dehiscence, surgical: CODE(S): T81.31XA - Disruption of external operation (surgical) wound, not elsewhere classified, initial encounter QUALIFIERS: Encounter type: subsequent encounter Qualified Code(s): T81.31XD - Disruption of external operation (surgical) wound, not elsewhere classified, subsequent encounter
[2023-11-26 14:29] VITALS: BP 141/88; PULSE 109; RESP 16; TEMP 36.3; BMI 62.5
[2023-11-28 15:26] VITALS: BP 152/85; PULSE 107; RESP 18; TEMP 36.2; BMI 62.5
--- NOTE | 2023-11-28 16:36 | PN.PCM_ITS ---
History of Present Illness Date of Service: 11/28/23 Chief Complaint: Ulceration right posterior leg History of Wound: Ulceration right posterior leg Subjective Subjective Ms. Rodriguez is a 43-year-old diabetic female presenting to the wound care center today for follow-up and evaluation status post incision and drainage with delayed primary closure to the posterior aspect of the right calf full-thickness ulceration. Date of surgery: 09/28/2023. Patient did admit to being noncompliant during her postoperative phase. She is presenting today for follow-up and evaluation of skin graft substitute to the posterior aspect of the right calf. She has been nonweightbearing using a knee scooter she has kept her wrap clean dry and intact. Denies any constitutional symptoms. She does admit to falling at home bumping her face but did not blackout or see stars and she did not present to the emergency department for evaluation. She is not on a blood thinner at this time. No other pedal complaints at this time. Objective Data Objective Data Vital Signs: Vital Signs Temp Pulse Resp BP O2 Del Method 97.2 F L 107 H 18 152/85 H Room Air 11/28/23 15:26 11/28/23 15:26 11/28/23 15:26 11/28/23 15:26 11/28/23 15:26 Oxygen Delivery Method Room Air Weight: 160.223 kg Body Mass Index (BMI) 62.5 Physical Exam Narrative Vascular: DP and PT pulses palpable. CFT is brisk. Nonpitting edema appreciated to right lower extremity. No erythema or proximal streaking is appreciated. Neurological: Light touch intact. Patient response to painful stimuli. Dermatological: Evidence of surgical wound dehiscence secondary to n onweightbearing and lack of medical compliance. Full-thickness ulceration measures 2.0 x 2.3 x 0.7 cm. Wound base is granular nature with sanguinous drainage after debridement. No evidence of erythema or proximal streaking. Cannot rule out infection at this time. Excisional debridement down to and including subcutaneous tissue with a number 3 mm dermal curette to the right posterior calf. Predebridement measurement was 1.8 x 2.5 x 0.5 cm. Postdebridement measurement is 2.0 x 2.7 x 0.7 cm. Application of TheraSkin skin substitute measuring 1.75 cm x 1.75 cm, 3 cm?, was applied to the full-thickness ulceration to the right posterior calf after debridement. Fifth application, 100% of the TheraSkin was used. The TheraSkin was secured with Dermabond followed by nonadherent bandage secured in place with Steri-Strips followed by bolster dressing as well as a 3M compression wrap. Musculoskeletal: No pain with calf compression. Mild pain to palpation full- thickness ulceration right calf. Debridement Note Debridement Note Debridement Free Text: Excisional debridement down to and including subcutaneous tissue with a number 3 mm dermal curette to the right posterior calf. Predebridement measurement was 1.8 x 2.5 x 0.5 cm. Postdebridement measurement is 2.0 x 2.7 x 0.7 cm. Application of TheraSkin skin substitute measuring 1.75 cm x 1.75 cm, 3 cm?, was applied to the full-thickness ulceration to the right posterior calf after debridement. Fifth application, 100% of the TheraSkin was used. The TheraSkin was secured with Dermabond followed by nonadherent bandage secured in place with Steri-Strips followed by bolster dressing as well as a 3M compression wrap. Post-Debridement Measurements and Additional Note: Post-Debridement Measurements/Treatment - Nurse 1 - General Ulcer Assessment Start: 11/19/23 14:23 Freq: Status: Active Protocol: WATSON Activity Type Activity Date Activity User E-sign Co-sign Detail Recorded Client Recorded Date Recorded By Document 11/19/23 14:23 KW Desktop 11/19/23 14:55 KW Document 11/21/23 15:02 DL Desktop 11/21/23 15:11 DL Document 11/26/23 14:29 [facility] [id number] 11/26/23 14:31 [facility] Document 11/28/23 15:26 GM Desktop 11/28/23 15:36 GM 11/19/23 11/21/23 11/26/23 14:23 15:02 14:29 - Today's Visit Information Type of service Nurse-only Follow-up Visit Nurse-only Visit (Physician/SUPPLY PERSON Visit ) Arrival Mode Ambulatory, Ambulatory, Ambulatory, Other Walker Walker Arrival Mode (Other) knee roller knee walker Transfer Assistance Stretcher None Transfer Assist (Other) Patient Identification Verified (Name & Yes Yes Yes ) Patient Requires Transmission-Based No No Precautions Finger Stick Blood Sugar(mg/dl) (if not checked indicated): Height and Weight Body Mass Index (BMI) 62.5 62.5 62.5 BMI Classification Obese Obese Obese Vital Signs Temperature (97.8 F-99.1 F) 96.6 F L 96.7 F L 97.3 F L Temperature Source Temporal Temporal Temporal Pulse Rate (60-100) 105 H 101 H 109 H Pulse Location Monitor Monitor Monitor Respiratory Rate (12-18) 18 24 H 16 Respiratory rate source Observation Observation Oxygen Delivery Method Room Air Room Air Blood Pressure (90/60-120/80) 150/81 H 156/90 H 141/88 H Blood Pressure Mean (mm Hg) 104 112 105 Source Monitor Monitor Monitor Position Semi-Fowlers Sitting Blood Pressure Location Left Arm Left Forearm History Since Last Visit- (Skip if this is Patient's initial visit) Have you changed medications since your No No No last visit? Any new allergies or adverse reactions No No No Had a fall/change in ADL's that may No No No increase risk of falls Signs or symptoms of abuse and/or No No No neglect since last visit Have you been in the hospital since your No No No last visit? Has dressing in place as prescribed Yes Yes Yes Has compression in place as prescribed Yes Yes Yes Has offloadiing in place as prescribed Yes Yes N/A Experienced any changes in pain level or No No No management Left Footwear Slipper Regular Shoe Slipper Right Footwear Slipper Regular Shoe Slipper Pain Scale: 0-10 Numeric Is Patient Pain Free? Yes Yes Yes 11/28/23 15:26 WC - Today's Visit Information Type of service Follow-up Visit (Physician/SUPPLY PERSON ) Arrival Mode Ambulatory Arrival Mode (Other) Transfer Assistance Other Transfer Assist (Other) knee roller Patient Identification Verified (Name & Yes ) Patient Requires Transmission-Based No Precautions Finger Stick Blood Sugar(mg/dl) (if indicated): Height and Weight Body Mass Index (BMI) 62.5 BMI Classification Obese Vital Signs Temperature (97.8 F-99.1 F) 97.2 F L Temperature Source Temporal Pulse Rate (60-100) 107 H Pulse Location Monitor Respiratory Rate (12-18) 18 Respiratory rate source Observation Oxygen Delivery Method Room Air Blood Pressure (90/60-120/80) 152/85 H Blood Pressure Mean (mm Hg) 107 Source Monitor Position Sitting Blood Pressure Location Left Forearm History Since Last Visit- (Skip if this is Patient's initial visit) Have you changed medications since your No last visit? Any new allergies or adverse reactions No Had a fall/change in ADL's that may No increase risk of falls Signs or symptoms of abuse and/or No neglect since last visit Have you been in the hospital since your No last visit? Has dressing in place as prescribed Yes Has compression in place as prescribed Yes Has offloadiing in place as prescribed Yes Experienced any changes in pain level or No management Left Footwear Regular Shoe Right Footwear Regular Shoe Pain Scale: 0-10 Numeric Is Patient Pain Free? Yes WC - Nurse 1 - General Ulcer Measurement Start: 11/19/23 14:23 Freq: Status: Active Protocol: Activity Type Activity Date Activity User E-sign Co-sign Detail Recorded Client Recorded Date Recorded By Document 11/21/23 15:02 DL Desktop 11/21/23 15:11 DL Document 11/26/23 14:29 [facility] [id number] 11/26/23 14:31 [facility] Document 11/28/23 15:26 Desktop 11/28/23 15:36 11/21/23 11/26/23 11/28/23 15:02 14:29 15:26 Wound Center Nurse 1 #1 R post LE- post-op cluster -Current Size (cm) - Length 2 1.2 -Current Size (cm) - Width 1.1 0.5 -Current Size (cm) - Depth 0.5 0.8 -Total Square Cm 2.2 0.60 -Photo Taken No -Epithelialization Small 1-33% -Circular Undermining No -Exudate Amt Medium Medium -Exudate Type Serosanguineous Serosanguineous -Wound Margin Distinct, Distinct, Outline Outline Attached Attached -Granulation Amt Large (67-100%) Small (1-33%) -Granulation Quality Red [place] -Necrosis Amt Small (1-33%) None Present (0 %) -Necrotic Tissue Type Adherent Slough -Structure Exposed N/A N/A -Texture (Rachele-wound Skin Appearance) Scarring Assessed, Scarring -Moisture (Rachele-wound Skin Appearance) No Abnormality Assessed -Color (Rachele-wound Skin Appearance) No Abnormality Assessed -Temperature (Rachele-wound Skin No Abnormality Appearance) (Pt Warm) -Tenderness on Palpation (Rachele-wound No Skin Appearance) -Ulcer Cleansing Soap and Water Soap and Water -Foul Odor after Cleansing No No -Anesthetic Used 5% Lidocaine 5% Lidocaine Gel Gel Lower Limb Edema Present Yes Right Calf (cm) 63.3 65.8 64.2 Right Ankle (cm) 30.3 32.5 32.0 WC - Nurse 2 - General Ulcer CM Notes Start: 11/19/23 14:23 Freq: Status: Active Protocol: Activity Type Activity Date Activity User E-sign Co-sign Detail Recorded Client Recorded Date Recorded By Document 11/21/23 15:41 Desktop 11/21/23 15:42 Document 11/28/23 15:48 Laptop 11/28/23 15:51 11/21/23 11/28/23 15:41 15:48 Wound Center Nurse 2 #1 R post LE- post-op cluster -Time 15:41 15:49 -Correct Patient Yes Yes -Correct Side, Site, Position Yes Yes -Correct Procedure Yes Yes -Procedure Performed Yes Yes -Type of Procedure Debridement Debridement -Clinical Debridement Subcutaneous Subcutaneous -Tissue Removed Subcutaneous Subcutaneous -Post Debridement (cm) - Length 1.7 2.0 -Post Debridement (cm) - Width 2.0 2.3 -Post Debridement (cm) - Depth 0.5 0.7 -Total Square (Post) (cm) 3.40 4.60 -Area of Debridement (cm) - Length 1.7 2.0 -Area of Debridement (cm) - Width 2.0 2.3 -Total Square (Area) (cm) 3.40 4.60 -Tunneling No No -Undermining/Tunneling No No -Circular Undermining No No -Wound/Ulcer Outcome Not Healed Not Healed -Ulcer Cleansing Rinsed/ Rinsed/ Irrigated with Irrigated with Saline Saline -Foul Odor after Cleansing No No -Bioengineered Tissue Yes Yes -Type of Bioengineered Tissue Theraskin Theraskin -Expiration Date 07/03/28 12/12/27 -Product Lot Number [id number] -Percent Used 100 100 -Lot number of Saline Used [id number] -Bleeding Controlled with Pressure Pressure -Treatment Response Procedure Procedure Tolerated Well Tolerated Well -Offloading No Yes -Type of Offloading Knee Walker -Debridement - Subq, 1st 20sq cm No No -Apply Skin Sub - 1st 25 sq cm - Legs 1 1 -Theraskin - 3TS (3 SQ CM) (per sq cm) 3 3 Pain Scale: 0-10 Numeric Is Patient Pain Free? Yes Yes - Nurse 3 - General Ulcer D/C NN Start: 11/19/23 14:23 Freq: Status: Active Protocol: Activity Type Activity Date Activity User E-sign Co-sign Detail Recorded Client Recorded Date Recorded By Document 11/19/23 14:55 KW Desktop 11/19/23 14:56 KW Document 11/21/23 15:58 [facility] Desktop 11/21/23 16:00 [facility] Document 11/26/23 14:29 [facility] [id number] 11/26/23 14:31 [facility] Document 11/28/23 16:06 KW Desktop 11/28/23 16:06 KW 11/19/23 11/21/23 11/26/23 14:55 15:58 14:29 Wound Care Center Nurse 3 #1 R post LE- post-op cluster -Ulcer Cleansing Soap and Water -Primary Dressing Applied Optilok 6.5x10 -Other Dressing [employer]/ theraskin left THERASKIN in place -Primary Dressing Covered/Secured with Dry Gauze & Roll Gauze, Secured with Tape -Other Covering ABD abd -Optilok 6.5x10 1 Right -Multi-Layered Wrap Application Multi-Layer Multi-Layer Multi-Layer Comp - Right ($ Comp - Right ($ Comp - Right ($ ) ) ) Treatment Response Procedure Procedure Tolerated Well Tolerated Well Vital Signs Temperature (97.8 F-99.1 F) 97.3 F L Temperature Source Temporal Pulse Rate (60-100) 109 H Pulse Location Monitor Respiratory Rate (12-18) 16 Respiratory rate source Observation Oxygen Delivery Method Room Air Blood Pressure (90/60-120/80) 141/88 H Blood Pressure Mean (mm Hg) 105 Source Monitor Position Sitting Blood Pressure Location Left Forearm Pain Scale: 0-10 Numeric Is Patient Pain Free? Yes Yes Yes - Visit Discharge Discharge Condition Stable Stable Stable Ambulatory Status Ambulatory Ambulatory, Ambulatory, Walker Walker Transportation Private Auto Private Auto Private Auto Accompanied by KNEE WALKER knee walker Medication Reconcilliation completed & No provided to patient/care provider Clinical Summary of Care Provided Yes Notes: uses a knee roller 11/28/23 16:06 Wound Care Center Nurse 3 #1 R post LE- post-op cluster -Ulcer Cleansing -Primary Dressing Applied -Other Dressing -Primary Dressing Covered/Secured with Dry Gauze -Other Covering -Optilok 6.5x10 Right -Multi-Layered Wrap Application Multi-Layer Comp - Left ($) Treatment Response Vital Signs Temperature (97.8 F-99.1 F) Temperature Source Pulse Rate (60-100) Pulse Location Respiratory Rate (12-18) Respiratory rate source Oxygen Delivery Method Blood Pressure (90/60-120/80) Blood Pressure Mean (mm Hg) Source Position Blood Pressure Location Pain Scale: 0-10 Numeric Is Patient Pain Free? 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 All findings were discussed with the patient. All questions were answered to the patient's satisfaction. Excisional debridement down to and including subcutaneous tissue with a number 3 mm dermal curette to the right posterior calf. Predebridement measurement was 1.8 x 2.5 x 0.5 cm. Postdebridement measurement is 2.0 x 2.7 x 0.7 cm. Application of TheraSkin skin substitute measuring 1.75 cm x 1.75 cm, 3 cm?, was applied to the full-thickness ulceration to the right posterior calf after debridement. Fifth application, 100% of the TheraSkin was used. The TheraSkin was secured with Dermabond followed by nonadherent bandage secured in place with Steri-Strips followed by bolster dressing as well as a 3M compression wrap. Follow-up at the wound care center with Dr. Lord in 1 week. (2) Wound dehiscence, surgical: CODE(S): T81.31XA - Disruption of external operation (surgical) wound, not elsewhere classified, initial encounter QUALIFIERS: Encounter type: subsequent encounter Qualified Code(s): T81.31XD - Disruption of external operation (surgical) wound, not elsewhere classified, subsequent encounter (3) Lymphedema, not elsewhere classified: CODE(S): I89.0 - Lymphedema, not elsewhere classified
[2023-12-03 14:01] VITALS: BP 140/80; PULSE 112; RESP 18; TEMP 36.3; BMI 62.5
[2023-12-05 14:51] VITALS: BP 171/85; PULSE 112; RESP 20; TEMP 36.5; BMI 62.5
--- NOTE | 2023-12-05 20:59 | PN.PCM_ITS ---
History of Present Illness Date of Service: 12/05/23 Chief Complaint: Ulceration right posterior leg History of Wound: Ulceration right posterior leg Subjective Subjective Ms. Rodriguez is a 43-year-old diabetic female presenting to the wound care center today for follow-up and evaluation status post incision and drainage with delayed primary closure to the posterior aspect of the right calf full-thickness ulceration. Date of surgery: 09/28/2023. Patient did admit to being noncompliant during her postoperative phase. She is presenting today for follow-up and evaluation of skin graft substitute to the posterior aspect of the right calf. She has been nonweightbearing using a knee scooter she has kept her wrap clean dry and intact. Denies any constitutional symptoms. Patient states she is on clindamycin and steroids for her upcoming dental surgery. Denies any other pedal complaints at this time. Objective Data Objective Data Vital Signs: Vital Signs Temp Pulse Resp BP O2 Del Method 97.7 F L 112 H 20 H 171/85 H Room Air 12/05/23 14:51 12/05/23 14:51 12/05/23 14:51 12/05/23 14:51 12/05/23 14:51 Oxygen Delivery Method Room Air Weight: 160.223 kg Body Mass Index (BMI) 62.5 Physical Exam Narrative Vascular: DP and PT pulses palpable. CFT is brisk. Nonpitting edema appreciated to right lower extremity. No erythema or proximal streaking is appreciated. Neurological: Light touch intact. Patient response to painful stimuli. Dermatological: Evidence of surgical wound dehiscence secondary to nonweightbearing and lack of medical compliance. Full-thickness ulceration measures 2.3 x 2.8 x 0.7 cm. Wound base is granular nature with sanguinous drainage after debridement. No evidence of erythema or proximal streaking. Cannot rule out infection at this time. Excisional debridement down to and including subcutaneous tissue with a number 3 mm dermal curette to the right posterior calf. Predebridement measurement was 2.1 x 2.6 x 0.5 cm. Postdebridement measurement is 2.3 x 2.8 x 0.7 cm. Application of TheraSkin skin substitute measuring 1.75 cm x 1.75 cm, 3 cm?, was applied to the full-thickness ulceration to the right posterior calf after debridement. Sixth application, 100% of the TheraSkin was used. The TheraSkin was secured with Dermabond followed by nonadherent bandage secured in place with Steri-Strips followed by bolster dressing as well as a 3M compression wrap. Musculoskeletal: No pain with calf compression. Mild pain to palpation full- thickness ulceration right calf. Debridement Note Debridement Note Debridement Free Text: Excisional debridement down to and including subcutaneous tissue with a number 3 mm dermal curette to the right posterior calf. Predebridement measurement was 2.1 x 2.6 x 0.5 cm. Postdebridement measurement is 2.3 x 2.8 x 0.7 cm. Application of TheraSkin skin substitute measuring 1.75 cm x 1.75 cm, 3 cm?, was applied to the full-thickness ulceration to the right posterior calf after debridement. Sixth application, 100% of the TheraSkin was used. The TheraSkin was secured with Dermabond followed by nonadherent bandage secured in place with Steri-Strips followed by bolster dressing as well as a 3M compression wrap. Post-Debridement Measurements and Additional Note: Post-Debridement Measurements/Treatment - Nurse 1 - General Ulcer Assessment Start: 11/19/23 14:23 Freq: Status: Active Protocol: [email or web address] Activity Type Activity Date Activity User E-sign Co-sign Detail Recorded Client Recorded Date Recorded By Document 11/19/23 14:23 KW Desktop 11/19/23 14:55 KW Document 11/21/23 15:02 DL Desktop 11/21/23 15:11 DL Document 11/26/23 14:29 [facility] [id number] 11/26/23 14:31 [facility] Document 11/28/23 15:26 Desktop 11/28/23 15:36 Document 12/03/23 14:01 KW Desktop 12/03/23 14:11 KW Document 12/05/23 14:51 KW Desktop 12/05/23 15:00 KW 11/19/23 11/21/23 11/26/23 14:23 15:02 14:29 - Today's Visit Information Type of service Nurse-only Follow-up Visit Nurse-only Visit (Physician/COSMETOLOGY TEACHER Visit ) Arrival Mode Ambulatory, Ambulatory, Ambulatory, Other Walker Walker Arrival Mode (Other) knee roller knee walker Transfer Assistance Stretcher None Transfer Assist (Other) Patient Identification Verified (Name & Yes Yes Yes ) Patient Requires Transmission-Based No No Precautions Finger Stick Blood Sugar(mg/dl) (if not checked indicated): Height and Weight Body Mass Index (BMI) 62.5 62.5 62.5 BMI Classification Obese Obese Obese Vital Signs Temperature (97.8 F-99.1 F) 96.6 F L 96.7 F L 97.3 F L Temperature Source Temporal Temporal Temporal Pulse Rate (60-100) 105 H 101 H 109 H Pulse Location Monitor Monitor Monitor Respiratory Rate (12-18) 18 24 H 16 Respiratory rate source Observation Observation Oxygen Delivery Method Room Air Room Air Blood Pressure (90/60-120/80) 150/81 H 156/90 H 141/88 H Blood Pressure Mean (mm Hg) 104 112 105 Source Monitor Monitor Monitor Position Semi-Fowlers Sitting Blood Pressure Location Left Arm Left Forearm History Since Last Visit- (Skip if this is Patient's initial visit) Have you changed medications since your No No No last visit? Any new allergies or adverse reactions No No No Had a fall/change in ADL's that may No No No increase risk of falls Signs or symptoms of abuse and/or No No No neglect since last visit Have you been in the hospital since your No No No last visit? Has dressing in place as prescribed Yes Yes Yes Has compression in place as prescribed Yes Yes Yes Has offloadiing in place as prescribed Yes Yes N/A Experienced any changes in pain level or No No No management Left Footwear Slipper Regular Shoe Slipper Right Footwear Slipper Regular Shoe Slipper Pain Scale: 0-10 Numeric Is Patient Pain Free? Yes Yes Yes 11/28/23 12/03/23 12/05/23 15:26 14:01 14:51 WC - Today's Visit Information Type of service Follow-up Visit Nurse-only Follow-up Visit (Physician/COSMETOLOGY TEACHER Visit (Physician/COSMETOLOGY TEACHER ) ) Arrival Mode Ambulatory Ambulatory, Ambulatory, Other Other Arrival Mode (Other) knee roller knee roller Transfer Assistance Other Transfer Assist (Other) knee roller Patient Identification Verified (Name & Yes Yes Yes ) Patient Requires Transmission-Based No Precautions Finger Stick Blood Sugar(mg/dl) (if indicated): Height and Weight Body Mass Index (BMI) 62.5 62.5 62.5 BMI Classification Obese Obese Obese Vital Signs Temperature (97.8 F-99.1 F) 97.2 F L 97.3 F L 97.7 F L Temperature Source Temporal Temporal Oral Pulse Rate (60-100) 107 H 112 H 112 H Pulse Location Monitor Monitor Monitor Respiratory Rate (12-18) 18 18 20 H Respiratory rate source Observation Observation Observation Oxygen Delivery Method Room Air Room Air Room Air Blood Pressure (90/60-120/80) 152/85 H 140/80 H 171/85 H Blood Pressure Mean (mm Hg) 107 100 113 Source Monitor Monitor Monitor Position Sitting Semi-Fowlers Blood Pressure Location Left Forearm Left Arm Left Forearm History Since Last Visit- (Skip if this is Patient's initial visit) Have you changed medications since your No No No last visit? Any new allergies or adverse reactions No No No Had a fall/change in ADL's that may No Yes No increase risk of falls Signs or symptoms of abuse and/or No No No neglect since last visit Have you been in the hospital since your No No No last visit? Has dressing in place as prescribed Yes Yes Yes Has compression in place as prescribed Yes Yes Yes Has offloadiing in place as prescribed Yes Yes Yes Experienced any changes in pain level or No No No management Left Footwear Regular Shoe Regular Shoe Slipper Right Footwear Regular Shoe Regular Shoe Slipper Pain Scale: 0-10 Numeric Is Patient Pain Free? Yes Yes Yes WC - Nurse 1 - General Ulcer Measurement Start: 11/19/23 14:23 Freq: Status: Active Protocol: Activity Type Activity Date Activity User E-sign Co-sign Detail Recorded Client Recorded Date Recorded By Document 11/21/23 15:02 DL Desktop 11/21/23 15:11 DL Document 11/26/23 14:29 [facility] [id number] 11/26/23 14:31 BMF Document 11/28/23 15:26 GM Desktop 11/28/23 15:36 GM Document 12/03/23 14:01 KW Desktop 12/03/23 14:11 KW Document 12/05/23 14:51 KW Desktop 12/05/23 15:00 KW 11/21/23 11/26/23 11/28/23 15:02 14:29 15:26 Wound Center Nurse 1 #1 R post LE- post-op cluster -Current Size (cm) - Length 2 1.2 -Current Size (cm) - Width 1.1 0.5 -Current Size (cm) - Depth 0.5 0.8 -Total Square Cm 2.2 0.60 -Photo Taken No -Epithelialization Small 1-33% -Circular Undermining No -Exudate Amt Medium Medium -Exudate Type Serosanguineous Serosanguineous -Wound Margin Distinct, Distinct, Outline Outline Attached Attached -Granulation Amt Large (67-100%) Small (1-33%) -Granulation Quality [place] -Necrosis Amt Small (1-33%) None Present (0 %) -Necrotic Tissue Type Adherent Slough -Structure Exposed N/A N/A -Texture (Rachele-wound Skin Appearance) Scarring Assessed, Scarring -Moisture (Rachele-wound Skin Appearance) No Abnormality Assessed -Color (Rachele-wound Skin Appearance) No Abnormality Assessed -Temperature (Rachele-wound Skin No Abnormality Appearance) (Pt Warm) -Tenderness on Palpation (Rachele-wound No Skin Appearance) -Ulcer Cleansing Soap and Water Soap and Water -Foul Odor after Cleansing No No -Anesthetic Used 5% Lidocaine 5% Lidocaine Gel Gel Lower Limb Edema Present Yes Right Calf (cm) 63.3 65.8 64.2 Right Ankle (cm) 30.3 32.5 32.0 12/03/23 12/05/23 14:01 14:51 Wound Center Nurse 1 #1 R post LE- post-op cluster -Current Size (cm) - Length 2.1 -Current Size (cm) - Width 1.1 -Current Size (cm) - Depth 0.7 -Total Square Cm 2.31 -Photo Taken -Epithelialization -Circular Undermining -Exudate Amt Small -Exudate Type Serosanguineous -Wound Margin Distinct, Outline Attached -Granulation Amt Large (67-100%) -Granulation Quality [place] -Necrosis Amt -Necrotic Tissue Type -Structure Exposed -Texture (Rachele-wound Skin Appearance) Assessed, Localized Edema -Moisture (Rachele-wound Skin Appearance) Assessed -Color (Rachele-wound Skin Appearance) Assessed -Temperature (Rachele-wound Skin No Abnormality Appearance) (Pt Warm) -Tenderness on Palpation (Rachele-wound Skin Appearance) -Ulcer Cleansing Soap and Water -Foul Odor after Cleansing No -Anesthetic Used 5% Lidocaine Gel Lower Limb Edema Present Right Calf (cm) 62.2 63.8 Right Ankle (cm) 31 32 WC - Nurse 2 - General Ulcer CM Notes Start: 11/19/23 14:23 Freq: Status: Active Protocol: Activity Type Activity Date Activity User E-sign Co-sign Detail Recorded Client Recorded Date Recorded By Document 11/21/23 15:41 Desktop 11/21/23 15:42 Document 11/28/23 15:48 Laptop 11/28/23 15:51 Document 12/05/23 15:22 Laptop 12/05/23 15:26 11/21/23 11/28/23 12/05/23 15:41 15:48 15:22 Wound Center Nurse 2 #1 R post LE- post-op cluster -Time 15:41 15:49 15:23 -Correct Patient Yes Yes Yes -Correct Side, Site, Position Yes Yes Yes -Correct Procedure Yes Yes Yes -Procedure Performed Yes Yes Yes -Type of Procedure Debridement Debridement Debridement -Clinical Debridement Subcutaneous Subcutaneous Subcutaneous -Tissue Removed Subcutaneous Subcutaneous Subcutaneous -Post Debridement (cm) - Length 1.7 2.0 2.3 -Post Debridement (cm) - Width 2.0 2.3 2.8 -Post Debridement (cm) - Depth 0.5 0.7 0.7 -Total Square (Post) (cm) 3.40 4.60 6.44 -Area of Debridement (cm) - Length 1.7 2.0 2.3 -Area of Debridement (cm) - Width 2.0 2.3 2.8 -Total Square (Area) (cm) 3.40 4.60 6.44 -Tunneling No No No -Undermining/Tunneling No No No -Circular Undermining No No No -Wound/Ulcer Outcome Not Healed Not Healed Not Healed -Ulcer Cleansing Rinsed/ Rinsed/ Rinsed/ Irrigated with Irrigated with Irrigated with Saline Saline Saline -Foul Odor after Cleansing No No No -Bioengineered Tissue Yes Yes Yes -Type of Bioengineered Tissue Theraskin Theraskin Theraskin -Expiration Date 07/03/28 12/12/27 07/10/28 -Product Lot Number [id number] -Percent Used 100 100 100 -Lot number of Saline Used [id number] -Bleeding Controlled with Pressure Pressure Pressure -Treatment Response Procedure Procedure Procedure Tolerated Well Tolerated Well Tolerated Well -Offloading No Yes Yes -Type of Offloading Knee Walker Knee Walker -Debridement - Subq, 1st 20sq cm No No No -Apply Skin Sub - 1st 25 sq cm - Legs 1 1 1 -Theraskin - 3TS (3 SQ CM) (per sq cm) 3 3 3 Pain Scale: 0-10 Numeric Is Patient Pain Free? Yes Yes Yes WC - Nurse 3 - General Ulcer D/C NN Start: 11/19/23 14:23 Freq: Status: Active Protocol: Activity Type Activity Date Activity User E-sign Co-sign Detail Recorded Client Recorded Date Recorded By Document 11/19/23 14:55 KW Desktop 11/19/23 14:56 KW Document 11/21/23 15:58 BMF Desktop 11/21/23 16:00 BMF Document 11/26/23 14:29 BMF [id number] 11/26/23 14:31 BMF Document 11/28/23 16:06 KW Desktop 11/28/23 16:06 KW Edit Result 11/28/23 16:06 KW (1) [id number] 12/03/23 16:14 JF Document 12/03/23 14:01 KW Desktop 12/03/23 14:11 KW Document 12/05/23 15:39 DL Desktop 12/05/23 15:41 DL (1) Right - Multi-Layered Wrap Application Multi-Layer Comp - => Multi-Layer Comp - Left ($) => Right ($) 11/19/23 11/21/23 11/26/23 14:55 15:58 14:29 Wound Care Center Nurse 3 #1 R post LE- post-op cluster -Ulcer Cleansing Soap and Water -Foul Odor after Cleansing -Primary Dressing Applied Optilok 6.5x10 -Other Dressing [employer]/ theraskin left THER[place] in place -Primary Dressing Covered/Secured with Dry Gauze & Roll Gauze, Secured with Tape -Other Covering ABD abd -Optilok 6.5x10 1 -Promogran Hannah Matter Left -Tubular Bandage -Size of Tubigrip Used -Size F ($) Right -Multi-Layered Wrap Application Multi-Layer Multi-Layer Multi-Layer Comp - Right ($ Comp - Right ($ Comp - Right ($ ) ) ) Treatment Response Procedure Procedure Tolerated Well Tolerated Well Vital Signs Temperature (97.8 F-99.1 F) 97.3 F L Temperature Source Temporal Pulse Rate (60-100) 109 H Pulse Location Monitor Respiratory Rate (12-18) 16 Respiratory rate source Observation Oxygen Delivery Method Room Air Blood Pressure (90/60-120/80) 141/88 H Blood Pressure Mean (mm Hg) 105 Source Monitor Position Sitting Blood Pressure Location Left Forearm Pain Scale: 0-10 Numeric Is Patient Pain Free? Yes Yes Yes WC - Visit Discharge Discharge Condition Stable Stable Stable Ambulatory Status Ambulatory Ambulatory, Ambulatory, Walker Walker Transportation Private Auto Private Auto Private Auto Accompanied by KNEE WALKER knee walker Medication Reconcilliation completed & No provided to patient/care provider Clinical Summary of Care Provided Yes Notes: uses a knee roller 11/28/23 12/03/23 12/05/23 16:06 14:01 15:39 Wound Care Center Nurse 3 #1 R post LE- post-op cluster -Ulcer Cleansing Soap and Water -Foul Odor after Cleansing No -Primary Dressing Applied Promogran Hannah Matter -Other Dressing hydrogel -Primary Dressing Covered/Secured with Dry Gauze Dry Gauze & Roll Gauze, Secured with Tape -Other Covering -Optilok 6.5x10 -Promogran Hannah Matter 1 Left -Tubular Bandage Double Layer -Size of Tubigrip Used Size F -Size F ($) 2 Right -Multi-Layered Wrap Application Multi-Layer Multi-Layer Multi-Layer Comp - Right ($ Comp - Right ($ Comp - Right ($ ) ) ) Treatment Response Procedure Tolerated Well Vital Signs Temperature (97.8 F-99.1 F) 97.3 F L Temperature Source Temporal Pulse Rate (60-100) 112 H Pulse Location Monitor Respiratory Rate (12-18) 18 Respiratory rate source Observation Oxygen Delivery Method Room Air Blood Pressure (90/60-120/80) 140/80 H Blood Pressure Mean (mm Hg) 100 Source Monitor Position Blood Pressure Location Left Arm Pain Scale: 0-10 Numeric Is Patient Pain Free? Yes Yes Yes WC - Visit Discharge Discharge Condition Stable Stable Stable Ambulatory Status Ambulatory Ambulatory Ambulatory, Walker Transportation Private Auto Private Auto Private Auto Accompanied by Medication Reconcilliation completed & No No provided to patient/care provider Clinical Summary of Care Provided Yes Yes Notes: pt uses knee Arianna Vikas roller applied dressing today in clinic. Assessment/Plan Assessment/Plan (1) Non-pressure chronic ulcer of unspecified part of 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 All findings were discussed with the patient. All questions were answered to the patient satisfaction. Excisional debridement down to and including subcutaneous tissue with a number 3 mm dermal curette to the right posterior calf. Predebridement measurement was 2.1 x 2.6 x 0.5 cm. Postdebridement measurement is 2.3 x 2.8 x 0.7 cm. Application of TheraSkin skin substitute measuring 1.75 cm x 1.75 cm, 3 cm?, was applied to the full-thickness ulceration to the right posterior calf after debridement. Sixth application, 100% of the TheraSkin was used. The TheraSkin was secured with Dermabond followed by nonadherent bandage secured in place with Steri-Strips followed by bolster dressing as well as a 3M compression wrap. Patient will continue to take her clindamycin and steroids for upcoming dental procedure. Patient will follow-up in 1 week for nursing visits then follow-up with Dr. Lord on week 2 for continued evaluation and care. Patient will follow-up with Dr. Lord at the wound care center in 2 week. (2) Lymphedema, not elsewhere classified: CODE(S): I89.0 - Lymphedema, not elsewhere classified
[2023-12-12 14:10] VITALS: BP 158/76; PULSE 108; RESP 22; TEMP 36.1; BMI 62.5
== END 2023-12-16 23:59 | disposition home or self-care (01) ==
LOC: WC 14:45
PROVIDERS: PCP Internal Medicine; Referring Provider Internal Medicine; Visit Provider Podiatrist Foot & Ankle Surgery
DX: T81.31XA Disruption of external operation (surgical) wound, not elsewhere classified, initial encounter (principal); L97.213 Non-pressure chronic ulcer of right calf with necrosis of muscle; E11.9 Type 2 diabetes mellitus without complications; I89.0 Lymphedema, not elsewhere classified; R60.0 Localized edema; Z91.199 Patient's noncompliance with other medical treatment and regimen due to unspecified reason; Z79.84 Long term (current) use of oral hypoglycemic drugs; Z79.82 Long term (current) use of aspirin; Z79.899 Other long term (current) drug therapy
CPT/HCPCS: 15271; 29581; 99212; Q4121; G0463

== ENCOUNTER 2024-01-09 15:15 | Outpatient (RCR) | payer MEDICAID, SELFPAY ==
[2023-12-17 00:36] VITALS: BP 158/76; PULSE 108; RESP 22; TEMP 36.1; BMI 62.5
[2023-12-19 15:17] VITALS: BP 152/92; PULSE 121; RESP 22; TEMP 36.6; BMI 62.5
--- NOTE | 2023-12-19 16:13 | PN.PCM_ITS ---
History of Present Illness Date of Service: 12/19/23 Chief Complaint: Ulceration right posterior leg History of Wound: Ulceration right posterior leg Subjective Subjective Ms. Rodriguez is a 43-year-old diabetic female presenting to the wound care center today for follow-up evaluation of surgical wound dehiscence to the posterior right leg. Patient admits to being controlled diabetic and her blood sugar today was 162 mg/dL. She does admit to smoking. She has been compliant with keeping her 3M wraps the right lower extremity clean dry and intact. Denies trauma. Denies constitutional symptoms or any other pedal complaints at this ti mn. Objective Data Objective Data Vital Signs: Vital Signs Temp Pulse Resp BP 97.8 F 121 H 22 H 152/92 H 12/19/23 15:17 12/19/23 15:17 12/19/23 15:17 12/19/23 15:17 Weight: 160.223 kg Body Mass Index (BMI) 62.5 Physical Exam Narrative Vascular: DP and PT pulses palpable. CFT is brisk. Nonpitting edema ap preciated to right lower extremity. No erythema or proximal streaking is appreciated. Neurological: Light touch intact. Patient response to painful stimuli. Dermatological: Evidence of surgical wound dehiscence secondary to nonweightbearing and lack of medical compliance. Full-thickness ulceration measures 2.2 x 1.6 x 0.6 cm. Wound base is granular nature with sanguinous drainage after debridement. No evidence of erythema or proximal streaking. Cannot rule out infection at this time. Excisional debridement down to and including subcutaneous tissue with a number 3 mm dermal curette to the right posterior calf. Predebridement measurement was 2.0 x 1.5 x 0.5 cm. Postdebridement measurement is 2.2 x 1.6 x 0.6 cm. Musculoskeletal: No pain with calf compression. Mild pain to palpation full- thickness ulceration right calf. Debridement Note Debridement Note Debridement Free Text: Excisional debridement down to and including subcutaneous tissue with a number 3 mm dermal curette to the right posterior calf. Predebridement measurement was 2.0 x 1.5 x 0.5 cm. Postdebridement measurement is 2.2 x 1.6 x 0.6 cm. 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 ASBESTOS SHINGLE ) Arrival Mode Ambulatory, Walker Arrival Mode (Other) knee walker Transfer Assistance None Patient Identification Verified (Name & Yes ) Patient Requires Transmission-Based No Precautions Height and Weight Body Mass Index (BMI) 62.5 BMI Classification Obese Vital Signs Temperature (97.8 F-99.1 F) 97.8 F Temperature Source Temporal Pulse Rate (60-100) 121 H Pulse Location Monitor Respiratory Rate (12-18) 22 H Respiratory rate source Observation Blood Pressure (90/60-120/80) 152/92 H Blood Pressure Mean (mm Hg) 112 Source Monitor History Since Last Visit- (Skip if this is Patient's initial visit) Have you changed medications since your No last visit? Any new allergies or adverse reactions No Had a fall/change in ADL's that may No increase risk of falls Signs or symptoms of abuse and/or No neglect since last visit Have you been in the hospital since your No last visit? Has dressing in place as prescribed Yes Has compression in place as prescribed Yes Has offloadiing in place as prescribed Yes Experienced any changes in pain level or No management Left Footwear Regular Shoe Right Footwear Regular Shoe Pain Scale: 0-10 Numeric Is Patient Pain Free? Yes - Nurse 1 - General Ulcer Measurement Start: 12/19/23 15:17 Freq: Status: Active Protocol: Activity Type Activity Date Activity User E-sign Co-sign Detail Recorded Client Recorded Date Recorded By Document 12/19/23 15:17 DL Desktop 12/19/23 15:24 DL 12/19/23 15:17 Wound Center Nurse 1 #1 R post LE- post-op cluster -Current Size (cm) - Length 2 -Current Size (cm) - Width 1.5 -Current Size (cm) - Depth 0.5 -Total Square Cm 3.0 -Exudate Amt Medium -Exudate Type Serosanguineous -Wound Margin Distinct, Outline Attached -Granulation Amt Medium (34-66%) -Granulation Quality Red -Necrosis Amt None Present (0 %) -Texture (Rachele-wound Skin Appearance) Scarring,Rash -Moisture (Rachele-wound Skin Appearance) No Abnormality -Color (Rachele-wound Skin Appearance) Erythema -Temperature (Rachele-wound Skin No Abnormality Appearance) (Pt Warm) -Ulcer Cleansing Soap and Water -Foul Odor after Cleansing No -Anesthetic Used 5% Lidocaine Gel Right Calf (cm) 65 Right Ankle (cm) 3.6 WC - Nurse 2 - General Ulcer CM Notes Start: 12/19/23 15:17 Freq: Status: Active Protocol: Activity Type Activity Date Activity User E-sign Co-sign Detail Recorded Client Recorded Date Recorded By Document 12/19/23 15:40 JF Laptop 12/19/23 15:43 JF 12/19/23 15:40 Wound Center Nurse 2 #1 R post LE- post-op cluster -Time 15:40 -Correct Patient Yes -Correct Side, Site, Position Yes -Correct Procedure Yes -Procedure Performed Yes -Type of Procedure Debridement -Clinical Debridement Subcutaneous -Tissue Removed Subcutaneous -Post Debridement (cm) - Length 2.2 -Post Debridement (cm) - Width 1.6 -Post Debridement (cm) - Depth 0.6 -Total Square (Post) (cm) 3.52 -Area of Debridement (cm) - Length 2.2 -Area of Debridement (cm) - Width 1.6 -Total Square (Area) (cm) 3.52 -Tunneling No -Undermining/Tunneling No -Circular Undermining No -Wound/Ulcer Outcome Not Healed -Ulcer Cleansing Rinsed/ Irrigated with Saline -Foul Odor after Cleansing No -Bioengineered Tissue No -Bleeding Controlled with Pressure -Treatment Response Procedure Tolerated Well -Offloading No -Debridement - Subq, 1st 20sq cm Yes Pain Scale: 0-10 Numeric Is Patient Pain Free? Yes - Nurse 3 - General Ulcer D/C NN Start: 12/19/23 15:17 Freq: Status: Active Protocol: Activity Type Activity Date Activity User E-sign Co-sign Detail Recorded Client Recorded Date Recorded By Document 12/19/23 15:48 KW Desktop 12/19/23 15:49 KW 12/19/23 15:48 Wound Care Center Nurse 3 #1 R post LE- post-op cluster -Primary Dressing Applied Promogran Hannah Matter -Primary Dressing Covered/Secured with Dry Gauze, Secured with Tape -Promogran Hannah Matter 1 Right -Tubular Bandage Double Layer -Size of Tubigrip Used Size F -Size F ($) 2 Left -Tubular Bandage Double Layer -Size of Tubigrip Used Size F -Size F ($) 2 Pain Scale: 0-10 Numeric Is Patient Pain Free? 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 All findings were discussed with the patient. All questions were answered to the patient's satisfaction. Excisional debridement down to and including subcutaneous tissue with a number 3 mm dermal curette to the right posterior calf. Predebridement measurement was 2.0 x 1.5 x 0.5 cm. Postdebridement measurement is 2.2 x 1.6 x 0.6 cm. Right lower extremities were cleaned and patted dry. The ulceration was dressed with moist Hannah and dry sterile dressing and a double layer Tubigrip. We will hold off on TheraSkin graft at this time and double layer wraps. We will attempt to try to further granulate in with collagen as the patient will benefit from a different type of wound care product at this time. Educated the patient to quit smoking and control her blood sugar which she is understanding of. We begin authorization to the patient's concerns for a negative pressure wound VAC to help fill in the the depth of the ulceration and to aid in her healing. The patient will be getting all her teeth extracted next Sunday and will follow-up in 2 weeks. Follow-up at the wound care center with Dr. Lord in 2 week. (2) Lymphedema, not elsewhere classified: CODE(S): I89.0 - Lymphedema, not elsewhere classified (3) Acute painful diabetic polyneuropathy: CODE(S): E11.42 - Type 2 diabetes mellitus with diabetic polyneuropathy
--- NOTE | 2023-12-24 15:26 | WC ---
Patient called complaining of her right leg burning and itching that has been going on for a few days. Called after lunch and left a voicemail message that she has noticed blistered areas to right leg. Called patient back and offered her an appt for 12/25/23 for [address] Hilliard to have her leg rewrapped. Patient states that will work since she has teeth extractions scheduled for tomorrow at 2pm. Advised her to remove the double tubigrips and wash her legs and wrap with an louisa wrap that she currently has. Also encouraged her to report to the ER if her legs get worse with redness, increase swelling and pain. She verbalized understanding.
[2023-12-25 11:01] VITALS: BP 156/85; PULSE 114; RESP 18; TEMP 36.4; BMI 62.5
--- NOTE | 2023-12-25 11:59 | PN.PCM_ITS ---
History of Present Illness Date of Service: 12/25/23 Chief Complaint: Ulceration right posterior leg History of Wound: Ulceration right posterior leg Progress of Wound: Denies constitutional symptoms. Denies pain. Some increased swelling redness to right posterior leg wound. Patient was here for nursing visit due to some worsening of wound decision was made to see me today. Objective Data Objective Data Vital Signs: Vital Signs Temp Pulse Resp BP O2 Del Method 97.5 F L 114 H 18 156/85 H Room Air 12/25/23 11:01 12/25/23 11:01 12/25/23 11:01 12/25/23 11:01 12/25/23 11:01 Oxygen Delivery Method Room Air Weight: 160.223 kg Body Mass Index (BMI) 62.5 Physical Exam Narrative Neurovascular status unchanged Posterior right calf wound full-thickness down to level of subcutaneous tissue. Predebridement demonstrate fibrogranular base. Postdebridement demonstrate 100% granular base. There is some periwound edema and erythema noted. There is moderate drainage noted, serosanguineous. Pre and postdebridement measurements documented nursing notes. No pain with calf squeeze. Muscular strength full to bilateral lower extremity compartments. 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 AND CHARGE WORKER ) ) Arrival Mode Ambulatory, Ambulatory Walker Arrival Mode (Other) knee walker Transfer Assistance None Patient Identification Verified (Name & Yes Yes ) Patient Requires Transmission-Based No Precautions Height and Weight Body Mass Index (BMI) 62.5 62.5 BMI Classification Obese Obese Vital Signs Temperature (97.8 F-99.1 F) 97.8 F 97.5 F L Temperature Source Temporal Temporal Pulse Rate (60-100) 121 H 114 H Pulse Location Monitor Monitor Respiratory Rate (12-18) 22 H 18 Respiratory rate source Observation Observation Oxygen Delivery Method Room Air Blood Pressure (90/60-120/80) 152/92 H 156/85 H Blood Pressure Mean (mm Hg) 112 108 Source Monitor Monitor Position Sitting Blood Pressure Location Left Forearm History Since Last Visit- (Skip if this is Patient's initial visit) Have you changed medications since your No No last visit? Any new allergies or adverse reactions No No Had a fall/change in ADL's that may No No increase risk of falls Signs or symptoms of abuse and/or No No neglect since last visit Have you been in the hospital since your No No last visit? Has dressing in place as prescribed Yes Yes Has compression in place as prescribed Yes Yes Has offloadiing in place as prescribed Yes N/A Experienced any changes in pain level or No No management Left Footwear Regular Shoe Regular Shoe Right Footwear Regular Shoe Regular Shoe Pain Scale: 0-10 Numeric Is Patient Pain Free? Yes Yes Rt post leg -Description Burning, Pressure WC - Nurse 1 - General Ulcer Measurement Start: 12/19/23 15:17 Freq: Status: Active Protocol: Activity Type Activity Date Activity User E-sign Co-sign Detail Recorded Client Recorded Date Recorded By Document 12/19/23 15:17 DL Desktop 12/19/23 15:24 DL Document 12/25/23 11:01 KW Desktop 12/25/23 11:20 KW 12/19/23 12/25/23 15:17 11:01 Wound Center Nurse 1 #1 R post LE- post-op cluster -Current Size (cm) - Length 2 2.2 -Current Size (cm) - Width 1.5 2 -Current Size (cm) - Depth 0.5 0.4 -Total Square Cm 3.0 4.4 -Exudate Amt Medium Large -Exudate Type Serosanguineous Serosanguineous -Wound Margin Distinct, Distinct, Outline Outline Attached Attached -Granulation Amt Medium (34-66%) Large (67-100%) -Granulation Quality Red Red -Necrosis Amt None Present (0 Small (1-33%) %) -Necrotic Tissue Type Adherent Slough -Texture (Rachele-wound Skin Appearance) Scarring,Rash Assessed -Moisture (Rachele-wound Skin Appearance) No Abnormality Assessed, Maceration -Color (Rachele-wound Skin Appearance) Erythema Assessed, Erythema -Temperature (Rachele-wound Skin No Abnormality No Abnormality Appearance) (Pt Warm) (Pt Warm) -Ulcer Cleansing Soap and Water Soap and Water -Foul Odor after Cleansing No No -Anesthetic Used 5% Lidocaine 5% Lidocaine Gel Gel Right Calf (cm) 65 68 Right Ankle (cm) 3.6 41 - Nurse 2 - General Ulcer CM Notes Start: 12/19/23 15:17 Freq: Status: Active Protocol: Activity Type Activity Date Activity User E-sign Co-sign Detail Recorded Client Recorded Date Recorded By Document 12/19/23 15:40 Laptop 12/19/23 15:43 Document 12/25/23 11:30 Laptop 12/25/23 11:34 12/19/23 12/25/23 15:40 11:30 Wound Center Nurse 2 #1 R post LE- post-op cluster -Time 15:40 11:30 -Correct Patient Yes Yes -Correct Side, Site, Position Yes Yes -Correct Procedure Yes Yes -Procedure Performed Yes Yes -Type of Procedure Debridement Debridement -Clinical Debridement Subcutaneous Subcutaneous -Tissue Removed Subcutaneous Subcutaneous -Post Debridement (cm) - Length 2.2 1.9 -Post Debridement (cm) - Width 1.6 1.3 -Post Debridement (cm) - Depth 0.6 0.9 -Total Square (Post) (cm) 3.52 2.47 -Area of Debridement (cm) - Length 2.2 1.9 -Area of Debridement (cm) - Width 1.6 1.3 -Total Square (Area) (cm) 3.52 2.47 -Tunneling No No -Undermining/Tunneling No No -Circular Undermining No No -Wound/Ulcer Outcome Not Healed Not Healed -Ulcer Cleansing Rinsed/ Rinsed/ Irrigated with Irrigated with Saline Saline -Foul Odor after Cleansing No No -Bioengineered Tissue No No -Bleeding Controlled with Pressure Pressure -Treatment Response Procedure Procedure Tolerated Well Tolerated Well -Offloading No No -Debridement - Subq, 1st 20sq cm Yes Yes Pain Scale: 0-10 Numeric Is Patient Pain Free? Yes Yes - Nurse 3 - General Ulcer D/C NN Start: 12/19/23 15:17 Freq: Status: Active Protocol: Activity Type Activity Date Activity User E-sign Co-sign Detail Recorded Client Recorded Date Recorded By Document 12/19/23 15:48 KW Desktop 12/19/23 15:49 KW 12/19/23 15:48 Wound Care Center Nurse 3 #1 R post LE- post-op cluster -Primary Dressing Applied Promogran Hannah Matter -Primary Dressing Covered/Secured with Dry Gauze, Secured with Tape -Promogran Hannah Matter 1 Right -Tubular Bandage Double Layer -Size of Tubigrip Used Size F -Size F ($) 2 Left -Tubular Bandage Double Layer -Size of Tubigrip Used Size F -Size F ($) 2 Pain Scale: 0-10 Numeric Is Patient Pain Free? 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 Stable wound to posterior right calf. I believe today erythema is likely secondary to drainage sitting on periwound skin. I evaluated patient's arterial studies demonstrate correct calcified vessels. Reviewed venous studies. No evidence of acute DVT. Today I ordered CBC, CMP, CRP, ESR, D-dimer, hemoglobin A1c. Patient reports that her A1c has recently decreased from 11 to 7, but we have no records of this. I discussed with patient that a large portion of her peripheral complaints including delayed wound healing and loss of dentition and obese stature are likely secondary to her poor blood glucose control and continued cigarette use. Discussed smoking cessation with patient today. Right posterior leg wound was excisionally debrided down to including level subcutaneous tissue of all nonviable tissue using 5 mm dermal curette without incident. Pre and postdebridement measurements documented nursing notes. Hemostasis obtained with light compression. Topical anesthesia used. Patient tolerated procedure well. Today patient had Snap VAC approved this was applied to the right posterior leg wound along with an overlying 3M compression wrap. Patient will follow-up on Sunday for nursing dressing visit. Then patient will follow-up in [address] Lord. (2) Wound dehiscence, surgical: CODE(S): T81.31XA - Disruption of external operation (surgical) wound, not elsewhere classified, initial encounter QUALIFIERS: Encounter type: subsequent encounter Qualified Code(s): T81.31XD - Disruption of external operation (surgical) wound, not elsewhere classified, subsequent encounter (3) Lymphedema, not elsewhere classified: CODE(S): I89.0 - Lymphedema, not elsewhere classified (4) Non-pressure chronic ulcer of unspecified part of right lower leg with fat layer exposed: CODE(S): L97.912 - Non-pressure chronic ulcer of unspecified part of right lower leg with fat layer exposed
[2023-12-28 11:34] VITALS: BP 200/89; PULSE 114; RESP 18; TEMP 35.5; BMI 62.5
[2023-12-31 09:52] VITALS: BP 144/85; PULSE 102; RESP 18; TEMP 36.1; BMI 62.5
[2024-01-02 15:21] VITALS: BP 165/108; PULSE 123; RESP 18; TEMP 36.5; BMI 62.5
--- NOTE | 2024-01-02 16:08 | PN.PCM_ITS ---
History of Present Illness Date of Service: 01/02/24 Chief Complaint: Ulceration right posterior leg History of Wound: Ulceration right posterior leg Progress of Wound: Denies constitutional symptoms. Denies pain. Some increased swelling redness to right posterior leg wound. Patient was here for nursing visit due to some worsening of wound decision was made to see me today. Subjective Subjective Mrs. Rodriguez is a 43-year-old diabetic female presenting to the wound care center today [facility] for follow-up and evaluation of full-thickness ulceration of the posterior aspect of the right leg. Patient has followed up with her dentist and had her teeth removed. She does admit to some discomfort to her mouth. In regards to the right lower extremity full-thickness ulceration she has been compliant with her compression wraps and negative pressure VAC. She has followed up with the wound care center for at least 3 canister exchanges. Overall she is grateful for her care. She notices improvement to her leg swelling. She admits her blood sugar has been a little elevated since being on a steroid that was provided by her dentist. Her blood sugar was in the +4 100s and is in the +2 100s today. Denies trauma. Denies constitutional symptoms. No other pedal complaints at this time. Objective Data Objective Data Vital Signs: Vital Signs Temp Pulse Resp BP O2 Del Method 97.7 F L 123 H 18 165/108 H Room Air 01/02/24 15:21 01/02/24 15:21 01/02/24 15:21 01/02/24 15:21 01/02/24 15:21 Oxygen Delivery Method Room Air Weight: 160.223 kg Body Mass Index (BMI) 62.5 Physical Exam Narrative Vascular: DP and PT pulses palpable. CFT is brisk. Nonpitting edema appreciated to right lower extremity. No erythema or proximal streaking is appreciated. Neurological: Light touch intact. Patient response to painful stimuli. Dermatological: Evidence of surgical wound dehiscence secondary to nonweightbearing and lack of medical compliance. Full-thickness ulceration measures 3.0 x 1.2 x 0.4 cm. Wound base is granular nature with sanguinous drainage after debridement. No evidence of erythema or proximal streaking. Cannot rule out infection at this time. Excisional debridement down to and including subcutaneous tissue with a number 3 mm dermal curette to the right posterior calf. Predebridement measurement was 2.0 x 1.1 x 0.4 cm. Postdebridement measurement is 3.0 x 1.2 x 0.4 cm. Musculoskeletal: No pain with calf compression. Mild pain to palpation full- thickness ulceration right calf. Debridement Note Debridement Note Debridement Free Text: Excisional debridement down to and including subcutaneous tissue with a number 3 mm dermal curette to the right posterior calf. Predebridement measurement was 2.0 x 1.1 x 0.4 cm. Postdebridement measurement is 3.0 x 1.2 x 0.4 cm. Post-Debridement Measurements and Additional Note: Post-Debridement Measurements/Treatment - Nurse 1 - General Ulcer Assessment Start: 12/19/23 15:17 Freq: Status: Active Protocol: WATSON Activity Type Activity Date Activity User E-sign Co-sign Detail Recorded Client Recorded Date Recorded By Document 12/19/23 15:17 DL Desktop 12/19/23 15:24 DL Document 12/25/23 11:01 KW Desktop 12/25/23 11:20 KW Document 12/28/23 11:34 KW [id number] 12/28/23 12:18 KW Document 12/31/23 09:52 KW Desktop 12/31/23 09:54 KW Document 01/02/24 15:21 CP Desktop 01/02/24 15:26 CP 12/19/23 12/25/23 12/28/23 15:17 11:01 11:34 - Today's Visit Information Type of service Follow-up Visit Follow-up Visit Nurse-only (Physician/PRINCIPAL PROCESS ENGINEER (Physician/PRINCIPAL PROCESS ENGINEER Visit ) ) Arrival Mode Ambulatory, Ambulatory Ambulatory Walker Arrival Mode (Other) knee walker Transfer Assistance None Patient Identification Verified (Name & Yes Yes Yes ) Patient Requires Transmission-Based No Precautions Height and Weight Body Mass Index (BMI) 62.5 62.5 62.5 BMI Classification Obese Obese Obese Vital Signs Temperature (97.8 F-99.1 F) 97.8 F 97.5 F L 95.9 F L Temperature Source Temporal Temporal Temporal Pulse Rate (60-100) 121 H 114 H 114 H Pulse Location Monitor Monitor Monitor Respiratory Rate (12-18) 22 H 18 18 Respiratory rate source Observation Observation Observation Oxygen Delivery Method Room Air Room Air Blood Pressure (90/60-120/80) 152/92 H 156/85 H 200/89 H Blood Pressure Mean (mm Hg) 112 108 126 Source Monitor Monitor Monitor Position Sitting Semi-Fowlers Blood Pressure Location Left Forearm Left Arm History Since Last Visit- (Skip if this is Patient's initial visit) Have you changed medications since your No No No last visit? Any new allergies or adverse reactions No No No Had a fall/change in ADL's that may No No No increase risk of falls Signs or symptoms of abuse and/or No No No neglect since last visit Have you been in the hospital since your No No No last visit? Has dressing in place as prescribed Yes Yes Yes Has compression in place as prescribed Yes Yes Yes Has offloadiing in place as prescribed Yes N/A N/A Experienced any changes in pain level or No No No management Left Footwear Regular Shoe Regular Shoe Regular Shoe Right Footwear Regular Shoe Regular Shoe Regular Shoe Pain Scale: 0-10 Numeric Is Patient Pain Free? Yes Yes Yes Rt post leg -Description Burning, Pressure 12/31/23 01/02/24 09:52 15:21 WC - Today's Visit Information Type of service Nurse-only Follow-up Visit Visit (Physician/PRINCIPAL PROCESS ENGINEER ) Arrival Mode Ambulatory Ambulatory Arrival Mode (Other) Transfer Assistance Patient Identification Verified (Name & Yes Yes ) Patient Requires Transmission-Based No Precautions Height and Weight Body Mass Index (BMI) 62.5 62.5 BMI Classification Obese Obese Vital Signs Temperature (97.8 F-99.1 F) 96.9 F L 97.7 F L Temperature Source Temporal Temporal Pulse Rate (60-100) 102 H 123 H Pulse Location Monitor Monitor Respiratory Rate (12-18) 18 18 Respiratory rate source Observation Observation Oxygen Delivery Method Room Air Room Air Blood Pressure (90/60-120/80) 144/85 H 165/108 H Blood Pressure Mean (mm Hg) 104 127 Source Monitor Monitor Position Semi-Fowlers Sitting Blood Pressure Location Left Arm Left Forearm History Since Last Visit- (Skip if this is Patient's initial visit) Have you changed medications since your No No last visit? Any new allergies or adverse reactions No No Had a fall/change in ADL's that may No No increase risk of falls Signs or symptoms of abuse and/or No No neglect since last visit Have you been in the hospital since your No No last visit? Has dressing in place as prescribed Yes Yes Has compression in place as prescribed Yes Yes Has offloadiing in place as prescribed N/A N/A Experienced any changes in pain level or No No management Left Footwear Regular Shoe Right Footwear Regular Shoe Pain Scale: 0-10 Numeric Is Patient Pain Free? Yes Yes Rt post leg -Description WC - Nurse 1 - General Ulcer Measurement Start: 12/19/23 15:17 Freq: Status: Active Protocol: Activity Type Activity Date Activity User E-sign Co-sign Detail Recorded Client Recorded Date Recorded By Document 12/19/23 15:17 DL Desktop 12/19/23 15:24 DL Document 12/25/23 11:01 KW Desktop 12/25/23 11:20 KW Document 01/02/24 15:21 CP Desktop 01/02/24 15:26 CP 12/19/23 12/25/23 01/02/24 15:17 11:01 15:21 Wound Center Nurse 1 #1 R post LE- post-op cluster -Current Size (cm) - Length 2 2.2 2.1 -Current Size (cm) - Width 1.5 2 1.1 -Current Size (cm) - Depth 0.5 0.4 0.4 -Total Square Cm 3.0 4.4 2.31 -Photo Taken No -Epithelialization None Present -Tunneling No -Undermining/Tunneling No -Circular Undermining No -Exudate Amt Medium Large Large -Exudate Type Serosanguineous Serosanguineous Serosanguineous -Wound Margin Distinct, Distinct, Flat & Intact Outline Outline Attached Attached -Granulation Amt Medium (34-66%) Large (67-100%) Large (67-100%) -Granulation Quality Red Red Red -Slough/Fibrin Yes -Necrosis Amt None Present (0 Small (1-33%) None Present (0 %) %) -Necrotic Tissue Type Adherent Slough Adherent Slough -Structure Exposed N/A -Texture (Rachele-wound Skin Appearance) Scarring,Rash Assessed -Moisture (Rachele-wound Skin Appearance) No Abnormality Assessed, Maceration Maceration -Color (Rachele-wound Skin Appearance) Erythema Assessed, Rubor Erythema -Temperature (Rachele-wound Skin No Abnormality No Abnormality No Abnormality Appearance) (Pt Warm) (Pt Warm) (Pt Warm) -Tenderness on Palpation (Rachele-wound Yes Skin Appearance) -Ulcer Cleansing Soap and Water Soap and Water Soap and Water -Foul Odor after Cleansing No No No -Anesthetic Used 5% Lidocaine 5% Lidocaine 5% Lidocaine Gel Gel Gel Right Calf (cm) 65 68 63.8 Right Ankle (cm) 3.6 41 31 WC - Nurse 2 - General Ulcer CM Notes Start: 12/19/23 15:17 Freq: Status: Active Protocol: Activity Type Activity Date Activity User E-sign Co-sign Detail Recorded Client Recorded Date Recorded By Document 12/19/23 15:40 Laptop 12/19/23 15:43 Document 12/25/23 11:30 Laptop 12/25/23 11:34 Document 01/02/24 15:31 Laptop 01/02/24 15:38 12/19/23 12/25/23 01/02/24 15:40 11:30 15:31 Wound Center Nurse 2 #1 R post LE- post-op cluster -Time 15:40 11:30 15:37 -Correct Patient Yes Yes Yes -Correct Side, Site, Position Yes Yes Yes -Correct Procedure Yes Yes Yes -Procedure Performed Yes Yes Yes -Type of Procedure Debridement Debridement Debridement -Clinical Debridement Subcutaneous Subcutaneous Subcutaneous -Tissue Removed Subcutaneous Subcutaneous Subcutaneous -Post Debridement (cm) - Length 2.2 1.9 3.0 -Post Debridement (cm) - Width 1.6 1.3 1.2 -Post Debridement (cm) - Depth 0.6 0.9 0.4 -Total Square (Post) (cm) 3.52 2.47 3.60 -Area of Debridement (cm) - Length 2.2 1.9 3.0 -Area of Debridement (cm) - Width 1.6 1.3 1.2 -Total Square (Area) (cm) 3.52 2.47 3.60 -Tunneling No No No -Undermining/Tunneling No No No -Circular Undermining No No No -Wound/Ulcer Outcome Not Healed Not Healed Not Healed -Ulcer Cleansing Rinsed/ Rinsed/ Rinsed/ Irrigated with Irrigated with Irrigated with Saline Saline Saline -Foul Odor after Cleansing No No No -Bioengineered Tissue No No No -Bleeding Controlled with Pressure Pressure Pressure -Treatment Response Procedure Procedure Procedure Tolerated Well Tolerated Well Tolerated Well -Offloading No No No -Debridement - Subq, 1st 20sq cm Yes Yes Yes Pain Scale: 0-10 Numeric Is Patient Pain Free? Yes Yes Yes WC - Nurse 3 - General Ulcer D/C NN Start: 12/19/23 15:17 Freq: Status: Active Protocol: Activity Type Activity Date Activity User E-sign Co-sign Detail Recorded Client Recorded Date Recorded By Document 12/19/23 15:48 KW Desktop 12/19/23 15:49 KW Document 12/25/23 12:03 DL Desktop 12/25/23 12:09 DL Document 12/28/23 11:34 KW [id number] 12/28/23 12:18 KW Document 12/31/23 09:52 KW Desktop 12/31/23 09:54 KW Edit Result 12/31/23 09:52 KW (1) [id number] 12/31/23 12:04 KW Edit Result 12/31/23 09:52 KW (2) [id number] 01/01/24 10:43 KW Document 01/02/24 15:59 BMF Desktop 01/02/24 16:00 BMF (1) #1 R post LE- post-op cluster - Negative Pressure Wound Therapy => Continue - Setting (mmHg) => 125 - Negative Pressure is => Continuous - NPWT Application Charge => NPWT > 50 sq cm ($ => ) (2) #1 R post LE- post-op cluster - NPWT Application Charge NPWT > 50 sq cm ($ => NPWT </= 50 sq cm ) => (disp) ($) 12/19/23 12/25/23 12/28/23 15:48 12:03 11:34 Wound Care Center Nurse 3 #1 R post LE- post-op cluster -Ulcer Cleansing Soap and Water -Foul Odor after Cleansing -Negative Pressure Wound Therapy Continue Continue -Setting (mmHg) 125 125 -Negative Pressure is Continuous Continuous -Primary Dressing Applied Promogran Hannah Matter -Other Dressing -Primary Dressing Covered/Secured with Dry Gauze, Secured with Tape -NPWT Application Charge NPWT </= 50 sq NPWT </= 50 sq cm (disp) ($) cm (disp) ($) -Promogran Hannah Matter 1 -Wound Comment(s) Right -Multi-Layered Wrap Application Multi-Layer Multi-Layer Comp - Right ($ Comp - Right ($ ) ) -Tubular Bandage Double Layer -Size of Tubigrip Used Size F -Size F ($) 2 Left -Tubular Bandage Double Layer -Size of Tubigrip Used Size F -Size F ($) 2 Treatment Response Vital Signs Temperature (97.8 F-99.1 F) 95.9 F L Temperature Source Temporal Pulse Rate (60-100) 114 H Pulse Location Monitor Respiratory Rate (12-18) 18 Respiratory rate source Observation Oxygen Delivery Method Room Air Blood Pressure (90/60-120/80) 200/89 H Blood Pressure Mean (mm Hg) 126 Source Monitor Position Semi-Fowlers Blood Pressure Location Left Arm Pain Scale: 0-10 Numeric Is Patient Pain Free? Yes Yes Yes WC - Visit Discharge Discharge Condition Stable Stable Stable Ambulatory Status Ambulatory Ambulatory Ambulatory Transportation Private Auto Private Auto Private Auto Medication Reconcilliation completed & No No No provided to patient/care provider Clinical Summary of Care Provided Yes Yes Yes Notes: new snap placed with 3M on top per order, ABD placed under 3M so snap and tub dont rub. Jessica Naidu LPN placed snap vac and 3M 12/31/23 01/02/24 09:52 15:59 Wound Care Center Nurse 3 #1 R post LE- post-op cluster -Ulcer Cleansing Rinsed/ Irrigated with Saline -Foul Odor after Cleansing No -Negative Pressure Wound Therapy Continue Continue -Setting (mmHg) 125 125 -Negative Pressure is Continuous Continuous -Primary Dressing Applied -Other Dressing snap -Primary Dressing Covered/Secured with -NPWT Application Charge NPWT </= 50 sq NPWT & cm (disp) ($) Debridement (nc ) -Promogran Hannah Matter -Wound Comment(s) PT DRESSING WAS snap padded INTACT, JUST well under 3M NEEDED SNAP CANISTER CHANGED, WILL BE SEEN THIS WED FOR DR VISIT. Right -Multi-Layered Wrap Application Multi-Layer Comp - Right ($ ) -Tubular Bandage -Size of Tubigrip Used -Size F ($) Left -Tubular Bandage -Size of Tubigrip Used -Size F ($) Treatment Response Procedure Tolerated Well Vital Signs Temperature (97.8 F-99.1 F) 96.9 F L Temperature Source Temporal Pulse Rate (60-100) 102 H Pulse Location Monitor Respiratory Rate (12-18) 18 Respiratory rate source Observation Oxygen Delivery Method Room Air Blood Pressure (90/60-120/80) 144/85 H Blood Pressure Mean (mm Hg) 104 Source Monitor Position Semi-Fowlers Blood Pressure Location Left Arm Pain Scale: 0-10 Numeric Is Patient Pain Free? Yes Yes WC - Visit Discharge Discharge Condition Stable Stable Ambulatory Status Ambulatory Ambulatory Transportation Private Auto Private Auto Medication Reconcilliation completed & No provided to patient/care provider Clinical Summary of Care Provided Yes Notes: Assessment/Plan Assessment/Plan (1) Non-pressure chronic ulcer of unspecified part of 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 All findings were discussed with the patient. All questions were answered to the patient's satisfaction. Excisional debridement down to and including subcutaneous tissue with a number 3 mm dermal curette to the right posterior calf. Predebridement measurement was 2.0 x 1.1 x 0.4 cm. Postdebridement measurement is 3.0 x 1.2 x 0.4 cm. Right lower extremities were cleaned and patted dry. The snap negative pressure VAC was applied without incident. The patient right lower extremity was dressed with double layer 3M compression wrap. The patient will follow-up for nursing visits weekly and for canister exchange when needed. Patient will go to the hospital to get blood work that was given to her during her last appointment from Dr. Hilliard. Culture was taken of the full-thickness ulceration secondary to increased drainage using the negative pressure wound VAC. Follow-up at the wound care center with Dr. Lord in 1 week. (2) Acute painful diabetic polyneuropathy: CODE(S): E11.42 - Type 2 diabetes mellitus with diabetic polyneuropathy
[2024-01-02 17:18] LABS: Hematocrit 33.9 % (37-47); Hemoglobin 9.1 g/dL (12.0-15.0); Mean Corp Hgb Conc 26.8 g/dL (32-36); Mean Corpuscular Hgb 19.9 pg (27.0-32.0); POSITIVE COUNT YES; Platelet Count 91 K/mm3 (150-450); RBC Distribution Width CV 19.4 % (11.6-14.6); RBC Distribution Width SD 51.8 fl (35.1-43.9); Red Blood Count 4.58 M/mm3 (4.2-5.4); White Blood Count 3.8 K/mm3 (4.4-11.0)
[2024-01-02 17:26] LABS: Hemoglobin A1c 8.9 % (3.8-5.6)
[2024-01-02 17:28] LABS: D-Dimer Quantitative (DVT/PE) 0.48 FEU/ug/m (0.27-0.49)
[2024-01-02 17:31] LABS: Erythrocyte Sedimentation Rate 49 mm/hr (0-30)
[2024-01-02 17:41] LABS: ALB/GLOB Ratio 0.7 RATIO (0.9-2.4); AST(SGOT) 30 U/L (15-37); Alanine Aminotransfer ALT/SGPT 34 U/L (13-56); Albumin, Serum 3.2 g/dL (3.2-5.0); Alkaline Phosphatase 113 U/L (45-117); Anion Gap 3 (5-15); BUN 9 mg/dL (7-18); BUN/Creat Ratio 14.8 RATIO (10-20); Calcium,Total 8.9 mg/dL (8.5-10.1); Chloride 104 mmol/L (98-107); Creatinine, Serum 0.61 mg/dL (0.55-1.02); EST Glomerular Filtration Rate 114 mL/min (>60); Est Glom Filt Rate - Afr Amer 138 mL/min (>60); Estimated Creatinine Clearance 181.18 ml/min; Globulin 4.7 g/dL (2.2-4.2); Glucose 256 mg/dL (74-106); Protein, Total 7.9 g/dL (6.4-8.2); Sodium Level 135 mmol/L (136-145)
[2024-01-04 10:26] VITALS: BP 128/73; PULSE 109; RESP 18; TEMP 36.6
[2024-01-07 11:28] VITALS: BP 135/88; PULSE 101; RESP 18; BMI 62.5
--- NOTE | 2024-01-07 13:27 | WC ---
12/28/2023 RIGHT POST LEG
[2024-01-09 15:26] VITALS: BP 143/85; PULSE 113; RESP 18; BMI 62.5
--- NOTE | 2024-01-09 15:57 | PCM.WC.PN ---
History of Present Illness Chief Complaint: Ulceration right posterior leg History of Wound: Ulceration right posterior leg Progress of Wound: Denies constitutional symptoms. Denies pain. Some increased swelling redness to right posterior leg wound. Patient was here for nursing visit due to some worsening of wound decision was made to see me today. Objective Data Objective Data Vital Signs: Vital Signs Temp Pulse Resp BP O2 Del Method 98 F 113 H 18 143/85 H Room Air 01/04/24 10:26 01/09/24 15:26 01/09/24 15:26 01/09/24 15:26 01/09/24 15:26 Oxygen Delivery Method Room Air Weight: 160.223 kg Body Mass Index (BMI) 62.5 Lab / Micro Data 01/02/24 16:22 01/02/24 16:22 Micro: Microbiology 01/02/24 15:32 Tissue Ulcer - Leg Gram Stain - Final 01/02/24 15:32 Tissue Ulcer - Leg Wound Culture - Final Enterobacter cloacae complex 01/02/24 15:32 Tissue Ulcer - Leg Anaerobic Culture - Final Anaerobic cocci Debridement Note Debridement Note Post-Debridement Measurements and Additional Note: Post-Debridement Measurements/Treatment WC - Nurse 1 - General Ulcer Assessment Start: 12/19/23 15:17 Freq: Status: Active Protocol: PANCHITO.SAY Activity Type Activity Date Activity User E-sign Co-sign Detail Recorded Client Recorded Date Recorded By Document 12/19/23 15:17 DL Desktop 12/19/23 15:24 DL Document 12/25/23 11:01 KW Desktop 12/25/23 11:20 KW Document 12/28/23 11:34 KW [id number] 12/28/23 12:18 KW Document 12/31/23 09:52 KW Desktop 12/31/23 09:54 KW Document 01/02/24 15:21 CP Desktop 01/02/24 15:26 CP Document 01/07/24 11:28 BMF Desktop 01/07/24 11:30 BMF Document 01/09/24 15:26 KW Desktop 01/09/24 15:27 KW 12/19/23 12/25/23 12/28/23 15:17 11:01 11:34 - Today's Visit Information Type of service Follow-up Visit Follow-up Visit Nurse-only (Physician/MATERIAL HANDLER LOADER (Physician/MATERIAL HANDLER LOADER Visit ) ) Arrival Mode Ambulatory, Ambulatory Ambulatory Walker Arrival Mode (Other) knee walker Transfer Assistance None Patient Identification Verified (Name & Yes Yes Yes ) Patient Requires Transmission-Based No Precautions Height and Weight Body Mass Index (BMI) 62.5 62.5 62.5 BMI Classification Obese Obese Obese Vital Signs Temperature (97.8 F-99.1 F) 97.8 F 97.5 F L 95.9 F L Temperature Source Temporal Temporal Temporal Pulse Rate (60-100) 121 H 114 H 114 H Pulse Location Monitor Monitor Monitor Respiratory Rate (12-18) 22 H 18 18 Respiratory rate source Observation Observation Observation Oxygen Delivery Method Room Air Room Air Blood Pressure (90/60-120/80) 152/92 H 156/85 H 200/89 H Blood Pressure Mean (mm Hg) 112 108 126 Source Monitor Monitor Monitor Position Sitting Semi-Fowlers Blood Pressure Location Left Forearm Left Arm History Since Last Visit- (Skip if this is Patient's initial visit) Have you changed medications since your No No No last visit? Any new allergies or adverse reactions No No No Had a fall/change in ADL's that may No No No increase risk of falls Signs or symptoms of abuse and/or No No No neglect since last visit Have you been in the hospital since your No No No last visit? Has dressing in place as prescribed Yes Yes Yes Has compression in place as prescribed Yes Yes Yes Has offloadiing in place as prescribed Yes N/A N/A Experienced any changes in pain level or No No No management Left Footwear Regular Shoe Regular Shoe Regular Shoe Right Footwear Regular Shoe Regular Shoe Regular Shoe Pain Scale: 0-10 Numeric Is Patient Pain Free? Yes Yes Yes Rt post leg -Description Burning, Pressure 12/31/23 01/02/24 01/07/24 09:52 15:21 11:28 WC - Today's Visit Information Type of service Nurse-only Follow-up Visit Nurse-only Visit (Physician/MATERIAL HANDLER LOADER Visit ) Arrival Mode Ambulatory Ambulatory Ambulatory Arrival Mode (Other) Transfer Assistance None Patient Identification Verified (Name & Yes Yes Yes ) Patient Requires Transmission-Based No No Precautions Height and Weight Body Mass Index (BMI) 62.5 62.5 62.5 BMI Classification Obese Obese Obese Vital Signs Temperature (97.8 F-99.1 F) 96.9 F L 97.7 F L Temperature Source Temporal Temporal Pulse Rate (60-100) 102 H 123 H 101 H Pulse Location Monitor Monitor Monitor Respiratory Rate (12-18) 18 18 18 Respiratory rate source Observation Observation Observation Oxygen Delivery Method Room Air Room Air Room Air Blood Pressure (90/60-120/80) 144/85 H 165/108 H 135/88 H Blood Pressure Mean (mm Hg) 104 127 103 Source Monitor Monitor Monitor Position Semi-Fowlers Sitting Sitting Blood Pressure Location Left Arm Left Forearm Left Forearm History Since Last Visit- (Skip if this is Patient's initial visit) Have you changed medications since your No No No last visit? Any new allergies or adverse reactions No No No Had a fall/change in ADL's that may No No No increase risk of falls Signs or symptoms of abuse and/or No No No neglect since last visit Have you been in the hospital since your No No No last visit? Has dressing in place as prescribed Yes Yes Yes Has compression in place as prescribed Yes Yes Yes Has offloadiing in place as prescribed N/A N/A N/A Experienced any changes in pain level or No No No management Left Footwear Regular Shoe Slipper Right Footwear Regular Shoe Slipper Pain Scale: 0-10 Numeric Is Patient Pain Free? Yes Yes Yes Rt post leg -Description 01/09/24 15:26 WC - Today's Visit Information Type of service Follow-up Visit (Physician/MATERIAL HANDLER LOADER ) Arrival Mode Ambulatory Arrival Mode (Other) Transfer Assistance Patient Identification Verified (Name & Yes ) Patient Requires Transmission-Based Precautions Height and Weight Body Mass Index (BMI) 62.5 BMI Classification Obese Vital Signs Temperature (97.8 F-99.1 F) Temperature Source Pulse Rate (60-100) 113 H Pulse Location Monitor Respiratory Rate (12-18) 18 Respiratory rate source Observation Oxygen Delivery Method Room Air Blood Pressure (90/60-120/80) 143/85 H Blood Pressure Mean (mm Hg) 104 Source Monitor Position Semi-Fowlers Blood Pressure Location Left Arm History Since Last Visit- (Skip if this is Patient's initial visit) Have you changed medications since your No last visit? Any new allergies or adverse reactions No Had a fall/change in ADL's that may No increase risk of falls Signs or symptoms of abuse and/or No neglect since last visit Have you been in the hospital since your No last visit? Has dressing in place as prescribed Yes Has compression in place as prescribed Yes Has offloadiing in place as prescribed N/A Experienced any changes in pain level or No management Left Footwear Regular Shoe Right Footwear Regular Shoe Pain Scale: 0-10 Numeric Is Patient Pain Free? Yes Rt post leg -Description WC - Nurse 1 - General Ulcer Measurement Start: 12/19/23 15:17 Freq: Status: Active Protocol: Activity Type Activity Date Activity User E-sign Co-sign Detail Recorded Client Recorded Date Recorded By Document 12/19/23 15:17 DL Desktop 12/19/23 15:24 DL Document 12/25/23 11:01 KW Desktop 12/25/23 11:20 KW Document 01/02/24 15:21 CP Desktop 01/02/24 15:26 CP Document 01/09/24 15:26 KW Desktop 01/09/24 15:27 KW 12/19/23 12/25/23 01/02/24 15:17 11:01 15:21 Wound Center Nurse 1 #1 R post LE- post-op cluster -Current Size (cm) - Length 2 2.2 2.1 -Current Size (cm) - Width 1.5 2 1.1 -Current Size (cm) - Depth 0.5 0.4 0.4 -Total Square Cm 3.0 4.4 2.31 -Photo Taken No -Epithelialization None Present -Tunneling No -Undermining/Tunneling No -Circular Undermining No -Exudate Amt Medium Large Large -Exudate Type Serosanguineous Serosanguineous Serosanguineous -Wound Margin Distinct, Distinct, Flat & Intact Outline Outline Attached Attached -Granulation Amt Medium (34-66%) Large (67-100%) Large (67-100%) -Granulation Quality Red Red Red -Slough/Fibrin Yes -Necrosis Amt None Present (0 Small (1-33%) None Present (0 %) %) -Necrotic Tissue Type Adherent Slough Adherent Slough -Structure Exposed N/A -Texture (Rachele-wound Skin Appearance) Scarring,Rash Assessed -Moisture (Rachele-wound Skin Appearance) No Abnormality Assessed, Maceration Maceration -Color (Rachele-wound Skin Appearance) Erythema Assessed, Rubor Erythema -Temperature (Rachele-wound Skin No Abnormality No Abnormality No Abnormality Appearance) (Pt Warm) (Pt Warm) (Pt Warm) -Tenderness on Palpation (Rachele-wound Yes Skin Appearance) -Ulcer Cleansing Soap and Water Soap and Water Soap and Water -Foul Odor after Cleansing No No No -Anesthetic Used 5% Lidocaine 5% Lidocaine 5% Lidocaine Gel Gel Gel Right Calf (cm) 65 68 63.8 Right Ankle (cm) 3.6 41 31 01/09/24 15:26 Wound Center Nurse 1 #1 R post LE- post-op cluster -Current Size (cm) - Length 1.5 -Current Size (cm) - Width 2 -Current Size (cm) - Depth 0.5 -Total Square Cm 3.0 -Photo Taken -Epithelialization -Tunneling -Undermining/Tunneling -Circular Undermining -Exudate Amt Large -Exudate Type Yellow/Green -Wound Margin Distinct, Outline Attached -Granulation Amt Medium (34-66%) -Granulation Quality Red -Slough/Fibrin -Necrosis Amt Small (1-33%) -Necrotic Tissue Type Adherent Slough -Structure Exposed -Texture (Rachele-wound Skin Appearance) Assessed,Rash -Moisture (Rachele-wound Skin Appearance) Assessed -Color (Rachele-wound Skin Appearance) Assessed, Erythema -Temperature (Rachele-wound Skin No Abnormality Appearance) (Pt Warm) -Tenderness on Palpation (Rachele-wound Skin Appearance) -Ulcer Cleansing Soap and Water -Foul Odor after Cleansing No -Anesthetic Used 5% Lidocaine Gel Right Calf (cm) 66.5 Right Ankle (cm) 38.5 WC - Nurse 2 - General Ulcer CM Notes Start: 12/19/23 15:17 Freq: Status: Active Protocol: Activity Type Activity Date Activity User E-sign Co-sign Detail Recorded Client Recorded Date Recorded By Document 12/19/23 15:40 Laptop 12/19/23 15:43 Document 12/25/23 11:30 Laptop 12/25/23 11:34 Document 01/02/24 15:31 Laptop 01/02/24 15:38 Document 01/09/24 15:51 Laptop 01/09/24 15:57 12/19/23 12/25/23 01/02/24 15:40 11:30 15:31 Wound Center Nurse 2 #1 R post LE- post-op cluster -Time 15:40 11:30 15:37 -Correct Patient Yes Yes Yes -Correct Side, Site, Position Yes Yes Yes -Correct Procedure Yes Yes Yes -Procedure Performed Yes Yes Yes -Type of Procedure Debridement Debridement Debridement -Clinical Debridement Subcutaneous Subcutaneous Subcutaneous -Tissue Removed Subcutaneous Subcutaneous Subcutaneous -Post Debridement (cm) - Length 2.2 1.9 3.0 -Post Debridement (cm) - Width 1.6 1.3 1.2 -Post Debridement (cm) - Depth 0.6 0.9 0.4 -Total Square (Post) (cm) 3.52 2.47 3.60 -Area of Debridement (cm) - Length 2.2 1.9 3.0 -Area of Debridement (cm) - Width 1.6 1.3 1.2 -Total Square (Area) (cm) 3.52 2.47 3.60 -Tunneling No No No -Undermining/Tunneling No No No -Circular Undermining No No No -Wound/Ulcer Outcome Not Healed Not Healed Not Healed -Ulcer Cleansing Rinsed/ Rinsed/ Rinsed/ Irrigated with Irrigated with Irrigated with Saline Saline Saline -Foul Odor after Cleansing No No No -Bioengineered Tissue No No No -Bleeding Controlled with Pressure Pressure Pressure -Treatment Response Procedure Procedure Procedure Tolerated Well Tolerated Well Tolerated Well -Offloading No No No -Debridement - Subq, 1st 20sq cm Yes Yes Yes Pain Scale: 0-10 Numeric Is Patient Pain Free? Yes Yes Yes 01/09/24 15:51 Wound Center Nurse 2 #1 R post LE- post-op cluster -Time 15:55 -Correct Patient Yes -Correct Side, Site, Position Yes -Correct Procedure Yes -Procedure Performed Yes -Type of Procedure Debridement -Clinical Debridement Subcutaneous -Tissue Removed Subcutaneous -Post Debridement (cm) - Length 2.8 -Post Debridement (cm) - Width 1.6 -Post Debridement (cm) - Depth 0.5 -Total Square (Post) (cm) 4.48 -Area of Debridement (cm) - Length 2.8 -Area of Debridement (cm) - Width 1.6 -Total Square (Area) (cm) 4.48 -Tunneling No -Undermining/Tunneling No -Circular Undermining No -Wound/Ulcer Outcome Not Healed -Ulcer Cleansing Rinsed/ Irrigated with Saline -Foul Odor after Cleansing No -Bioengineered Tissue No -Bleeding Controlled with Pressure -Treatment Response Procedure Tolerated Well -Offloading No -Debridement - Subq, 1st 20sq cm Yes Pain Scale: 0-10 Numeric Is Patient Pain Free? Yes WC - Nurse 3 - General Ulcer D/C NN Start: 12/19/23 15:17 Freq: Status: Active Protocol: Activity Type Activity Date Activity User E-sign Co-sign Detail Recorded Client Recorded Date Recorded By Document 12/19/23 15:48 KW Desktop 12/19/23 15:49 KW Document 12/25/23 12:03 DL Desktop 12/25/23 12:09 DL Document 12/28/23 11:34 KW [id number] 12/28/23 12:18 KW Document 12/31/23 09:52 KW Desktop 12/31/23 09:54 KW Edit Result 12/31/23 09:52 KW (1) [id number] 12/31/23 12:04 KW Edit Result 12/31/23 09:52 KW (2) [id number] 01/01/24 10:43 KW Document 01/02/24 15:59 BMF Desktop 01/02/24 16:00 BMF Document 01/04/24 10:26 MT Desktop 01/04/24 10:41 MT Document 01/07/24 11:28 BMF Desktop 01/07/24 11:30 BMF (1) #1 R post LE- post-op cluster - Negative Pressure Wound Therapy => Continue - Setting (mmHg) => 125 - Negative Pressure is => Continuous - NPWT Application Charge => NPWT > 50 sq cm ($ => ) (2) #1 R post LE- post-op cluster - NPWT Application Charge NPWT > 50 sq cm ($ => NPWT </= 50 sq cm ) => (disp) ($) 12/19/23 12/25/23 12/28/23 15:48 12:03 11:34 Wound Care Center Nurse 3 #1 R post LE- post-op cluster -Ulcer Cleansing Soap and Water -Foul Odor after Cleansing -Negative Pressure Wound Therapy Continue Continue -Setting (mmHg) 125 125 -Negative Pressure is Continuous Continuous -Regranex (If Applicable) -Primary Dressing Applied Promogran Hannah Matter -Other Dressing -Primary Dressing Covered/Secured with Dry Gauze, Secured with Tape -NPWT Application Charge NPWT </= 50 sq NPWT </= 50 sq cm (disp) ($) cm (disp) ($) -Promogran Hannah Matter 1 -Wound Comment(s) Right -Multi-Layered Wrap Application Multi-Layer Multi-Layer Comp - Right ($ Comp - Right ($ ) ) -Tubular Bandage Double Layer -Size of Tubigrip Used Size F -Size F ($) 2 Left -Tubular Bandage Double Layer -Size of Tubigrip Used Size F -Size F ($) 2 Treatment Response Vital Signs Temperature (97.8 F-99.1 F) 95.9 F L Temperature Source Temporal Pulse Rate (60-100) 114 H Pulse Location Monitor Respiratory Rate (12-18) 18 Respiratory rate source Observation Oxygen Delivery Method Room Air Blood Pressure (90/60-120/80) 200/89 H Blood Pressure Mean (mm Hg) 126 Source Monitor Position Semi-Fowlers Blood Pressure Location Left Arm Pain Scale: 0-10 Numeric Is Patient Pain Free? Yes Yes Yes WC - Visit Discharge Discharge Condition Stable Stable Stable Ambulatory Status Ambulatory Ambulatory Ambulatory Transportation Private Auto Private Auto Private Auto Medication Reconcilliation completed & No No No provided to patient/care provider Clinical Summary of Care Provided Yes Yes Yes Notes: new snap placed with 3M on top per order, ABD placed under 3M so snap and tub dont rub. Jessica Naidu LPN placed snap vac and 3M 12/31/23 01/02/24 01/04/24 09:52 15:59 10:26 Wound Care Center Nurse 3 #1 R post LE- post-op cluster -Ulcer Cleansing Rinsed/ Soap and Water Irrigated with Saline -Foul Odor after Cleansing No Yes -Negative Pressure Wound Therapy Continue Continue Start -Setting (mmHg) 125 125 125 -Negative Pressure is Continuous Continuous Continuous -Regranex (If Applicable) Continue -Primary Dressing Applied -Other Dressing snap -Primary Dressing Covered/Secured with Secured with Tape -NPWT Application Charge NPWT </= 50 sq NPWT & NPWT </= 50 sq cm (disp) ($) Debridement (nc cm (disp) ($) ) -Promogran Hannah Matter -Wound Comment(s) PT DRESSING WAS snap padded INTACT, JUST well under 3M NEEDED SNAP CANISTER CHANGED, WILL BE SEEN THIS WED FOR DR VISIT. Right -Multi-Layered Wrap Application Multi-Layer Multi-Layer Comp - Right ($ Comp - Right ($ ) ) -Tubular Bandage -Size of Tubigrip Used -Size F ($) Left -Tubular Bandage -Size of Tubigrip Used -Size F ($) Treatment Response Procedure Tolerated Well Vital Signs Temperature (97.8 F-99.1 F) 96.9 F L 98 F Temperature Source Temporal Temporal Pulse Rate (60-100) 102 H 109 H Pulse Location Monitor Monitor Respiratory Rate (12-18) 18 18 Respiratory rate source Observation Observation Oxygen Delivery Method Room Air Blood Pressure (90/60-120/80) 144/85 H 128/73 H Blood Pressure Mean (mm Hg) 104 91 Source Monitor Monitor Position Semi-Fowlers Sitting Blood Pressure Location Left Arm Right Forearm Pain Scale: 0-10 Numeric Is Patient Pain Free? Yes Yes Yes WC - Visit Discharge Discharge Condition Stable Stable Stable Ambulatory Status Ambulatory Ambulatory Ambulatory Transportation Private Auto Private Auto Private Auto Medication Reconcilliation completed & No No provided to patient/care provider Clinical Summary of Care Provided Yes Yes Notes: nurse visit. 3M & snap vac. 01/07/24 11:28 Wound Care Center Nurse 3 #1 R post LE- post-op cluster -Ulcer Cleansing Soap and Water -Foul Odor after Cleansing No -Negative Pressure Wound Therapy Continue -Setting (mmHg) 125 -Negative Pressure is Continuous -Regranex (If Applicable) -Primary Dressing Applied -Other Dressing -Primary Dressing Covered/Secured with -NPWT Application Charge NPWT </= 50 sq cm (disp) ($) -Promogran Hannah Matter -Wound Comment(s) Right -Multi-Layered Wrap Application Multi-Layer Comp - Right ($ ) -Tubular Bandage -Size of Tubigrip Used -Size F ($) Left -Tubular Bandage -Size of Tubigrip Used -Size F ($) Treatment Response Procedure Tolerated Well Vital Signs Temperature (97.8 F-99.1 F) Temperature Source Pulse Rate (60-100) 101 H Pulse Location Monitor Respiratory Rate (12-18) 18 Respiratory rate source Observation Oxygen Delivery Method Room Air Blood Pressure (90/60-120/80) 135/88 H Blood Pressure Mean (mm Hg) 103 Source Monitor Position Sitting Blood Pressure Location Left Forearm Pain Scale: 0-10 Numeric Is Patient Pain Free? Yes WC - Visit Discharge Discharge Condition Stable Ambulatory Status Ambulatory Transportation Medication Reconcilliation completed & provided to patient/care provider Clinical Summary of Care Provided Notes:
--- NOTE | 2024-01-09 16:45 | PCM.WC.PN ---
History of Present Illness Date of Service: 01/09/24 Chief Complaint: Ulceration right posterior leg History of Wound: Ulceration right posterior leg Progress of Wound: Denies constitutional symptoms. Denies pain. Some increased swelling redness to right posterior leg wound. Patient was here for nursing visit due to some worsening of wound decision was made to see me today. Subjective Subjective Ms. Rodriguez is a 43-year-old diabetic female resenting to the wound care center today for follow-up evaluation to the full-thickness ulceration to the posterior aspect of the right calf. Patient has been compliant with her wound VAC. She admits to controlled blood sugar. Patient has been following up for nursing visits for cancer exchange. Patient states she does have some pain to the right leg secondary to maceration from the wound VAC. Patient does continue to smoke. Denies trauma. Denies constitutional symptoms. Other complaints at this time. Objective Data Objective Data Vital Signs: Vital Signs Temp Pulse Resp BP O2 Del Method 98 F 113 H 18 143/85 H Room Air 01/04/24 10:26 01/09/24 15:26 01/09/24 15:26 01/09/24 15:26 01/09/24 15:26 Oxygen Delivery Method Room Air Weight: 160.223 kg Body Mass Index (BMI) 62.5 Lab / Micro Data 01/02/24 16:22 01/02/24 16:22 Micro: Microbiology 01/02/24 15:32 Tissue Ulcer - Leg Gram Stain - Final 01/02/24 15:32 Tissue Ulcer - Leg Wound Culture - Final Enterobacter cloacae complex 01/02/24 15:32 Tissue Ulcer - Leg Anaerobic Culture - Final Anaerobic cocci Physical Exam Narrative Vascular: DP and PT pulses palpable. CFT is brisk. Nonpitting edema appreciated to right lower extremity. No erythema or proximal streaking is appreciated. Neurological: Light touch intact. Patient response to painful stimuli. Dermatological: Evidence of surgical wound dehiscence secondary to nonweightbearing and lack of medical compliance. Full-thickness ulceration measures 2.8 x 1.6 x 0.5 cm. Wound base is granular nature with sanguinous drainage after debridement. No evidence of erythema or proximal streaking. Cannot rule out infection at this time. Excisional debridement down to and including subcutaneous tissue with a number 3 mm dermal curette to the right posterior calf. Predebridement measurement was 2.7 x 1.4 x 0.4 cm. Postdebridement measurement is 2.8 x 1.6 x 0.5 cm. Musculoskeletal: No pain with calf compression. Mild pain to palpation full-thickness ulceration right calf. Debridement Note Debridement Note Debridement Free Text: Excisional debridement down to and including subcutaneous tissue with a number 3 mm dermal curette to the right posterior calf. Predebridement measurement was 2.7 x 1.4 x 0.4 cm. Postdebridement measurement is 2.8 x 1.6 x 0.5 cm. Post-Debridement Measurements and Additional Note: Post-Debridement Measurements/Treatment - Nurse 1 - General Ulcer Assessment Start: 12/19/23 15:17 Freq: Status: Active Protocol: WATSON Activity Type Activity Date Activity User E-sign Co-sign Detail Recorded Client Recorded Date Recorded By Document 12/19/23 15:17 DL Desktop 12/19/23 15:24 DL Document 12/25/23 11:01 KW Desktop 12/25/23 11:20 KW Document 12/28/23 11:34 KW [id number] 12/28/23 12:18 KW Document 12/31/23 09:52 KW Desktop 12/31/23 09:54 KW Document 01/02/24 15:21 CP Desktop 01/02/24 15:26 CP Document 01/07/24 11:28 BMF Desktop 01/07/24 11:30 BMF Document 01/09/24 15:26 KW Desktop 01/09/24 15:27 KW 12/19/23 12/25/23 12/28/23 15:17 11:01 11:34 - Today's Visit Information Type of service Follow-up Visit Follow-up Visit Nurse-only (Physician/DRUG DISCOVERY INFORMATICS SPECIALIST (Physician/DRUG DISCOVERY INFORMATICS SPECIALIST Visit ) ) Arrival Mode Ambulatory, Ambulatory Ambulatory Walker Arrival Mode (Other) knee walker Transfer Assistance None Patient Identification Verified (Name & Yes Yes Yes ) Patient Requires Transmission-Based No Precautions Height and Weight Body Mass Index (BMI) 62.5 62.5 62.5 BMI Classification Obese Obese Obese Vital Signs Temperature (97.8 F-99.1 F) 97.8 F 97.5 F L 95.9 F L Temperature Source Temporal Temporal Temporal Pulse Rate (60-100) 121 H 114 H 114 H Pulse Location Monitor Monitor Monitor Respiratory Rate (12-18) 22 H 18 18 Respiratory rate source Observation Observation Observation Oxygen Delivery Method Room Air Room Air Blood Pressure (90/60-120/80) 152/92 H 156/85 H 200/89 H Blood Pressure Mean (mm Hg) 112 108 126 Source Monitor Monitor Monitor Position Sitting Semi-Fowlers Blood Pressure Location Left Forearm Left Arm History Since Last Visit- (Skip if this is Patient's initial visit) Have you changed medications since your No No No last visit? Any new allergies or adverse reactions No No No Had a fall/change in ADL's that may No No No increase risk of falls Signs or symptoms of abuse and/or No No No neglect since last visit Have you been in the hospital since your No No No last visit? Has dressing in place as prescribed Yes Yes Yes Has compression in place as prescribed Yes Yes Yes Has offloadiing in place as prescribed Yes N/A N/A Experienced any changes in pain level or No No No management Left Footwear Regular Shoe Regular Shoe Regular Shoe Right Footwear Regular Shoe Regular Shoe Regular Shoe Pain Scale: 0-10 Numeric Is Patient Pain Free? Yes Yes Yes Rt post leg -Description Burning, Pressure 12/31/23 01/02/24 01/07/24 09:52 15:21 11:28 WC - Today's Visit Information Type of service Nurse-only Follow-up Visit Nurse-only Visit (Physician/DRUG DISCOVERY INFORMATICS SPECIALIST Visit ) Arrival Mode Ambulatory Ambulatory Ambulatory Arrival Mode (Other) Transfer Assistance None Patient Identification Verified (Name & Yes Yes Yes ) Patient Requires Transmission-Based No No Precautions Height and Weight Body Mass Index (BMI) 62.5 62.5 62.5 BMI Classification Obese Obese Obese Vital Signs Temperature (97.8 F-99.1 F) 96.9 F L 97.7 F L Temperature Source Temporal Temporal Pulse Rate (60-100) 102 H 123 H 101 H Pulse Location Monitor Monitor Monitor Respiratory Rate (12-18) 18 18 18 Respiratory rate source Observation Observation Observation Oxygen Delivery Method Room Air Room Air Room Air Blood Pressure (90/60-120/80) 144/85 H 165/108 H 135/88 H Blood Pressure Mean (mm Hg) 104 127 103 Source Monitor Monitor Monitor Position Semi-Fowlers Sitting Sitting Blood Pressure Location Left Arm Left Forearm Left Forearm History Since Last Visit- (Skip if this is Patient's initial visit) Have you changed medications since your No No No last visit? Any new allergies or adverse reactions No No No Had a fall/change in ADL's that may No No No increase risk of falls Signs or symptoms of abuse and/or No No No neglect since last visit Have you been in the hospital since your No No No last visit? Has dressing in place as prescribed Yes Yes Yes Has compression in place as prescribed Yes Yes Yes Has offloadiing in place as prescribed N/A N/A N/A Experienced any changes in pain level or No No No management Left Footwear Regular Shoe Slipper Right Footwear Regular Shoe Slipper Pain Scale: 0-10 Numeric Is Patient Pain Free? Yes Yes Yes Rt post leg -Description 01/09/24 15:26 WC - Today's Visit Information Type of service Follow-up Visit (Physician/DRUG DISCOVERY INFORMATICS SPECIALIST ) Arrival Mode Ambulatory Arrival Mode (Other) Transfer Assistance Patient Identification Verified (Name & Yes ) Patient Requires Transmission-Based Precautions Height and Weight Body Mass Index (BMI) 62.5 BMI Classification Obese Vital Signs Temperature (97.8 F-99.1 F) Temperature Source Pulse Rate (60-100) 113 H Pulse Location Monitor Respiratory Rate (12-18) 18 Respiratory rate source Observation Oxygen Delivery Method Room Air Blood Pressure (90/60-120/80) 143/85 H Blood Pressure Mean (mm Hg) 104 Source Monitor Position Semi-Fowlers Blood Pressure Location Left Arm History Since Last Visit- (Skip if this is Patient's initial visit) Have you changed medications since your No last visit? Any new allergies or adverse reactions No Had a fall/change in ADL's that may No increase risk of falls Signs or symptoms of abuse and/or No neglect since last visit Have you been in the hospital since your No last visit? Has dressing in place as prescribed Yes Has compression in place as prescribed Yes Has offloadiing in place as prescribed N/A Experienced any changes in pain level or No management Left Footwear Regular Shoe Right Footwear Regular Shoe Pain Scale: 0-10 Numeric Is Patient Pain Free? Yes Rt post leg -Description WC - Nurse 1 - General Ulcer Measurement Start: 12/19/23 15:17 Freq: Status: Active Protocol: Activity Type Activity Date Activity User E-sign Co-sign Detail Recorded Client Recorded Date Recorded By Document 12/19/23 15:17 DL Desktop 12/19/23 15:24 DL Document 12/25/23 11:01 KW Desktop 12/25/23 11:20 KW Document 01/02/24 15:21 CP Desktop 01/02/24 15:26 CP Document 01/09/24 15:26 KW Desktop 01/09/24 15:27 KW 12/19/23 12/25/23 01/02/24 15:17 11:01 15:21 Wound Center Nurse 1 #1 R post LE- post-op cluster -Current Size (cm) - Length 2 2.2 2.1 -Current Size (cm) - Width 1.5 2 1.1 -Current Size (cm) - Depth 0.5 0.4 0.4 -Total Square Cm 3.0 4.4 2.31 -Photo Taken No -Epithelialization None Present -Tunneling No -Undermining/Tunneling No -Circular Undermining No -Exudate Amt Medium Large Large -Exudate Type Serosanguineous Serosanguineous Serosanguineous -Wound Margin Distinct, Distinct, Flat & Intact Outline Outline Attached Attached -Granulation Amt Medium (34-66%) Large (67-100%) Large (67-100%) -Granulation Quality Red Red Red -Slough/Fibrin Yes -Necrosis Amt None Present (0 Small (1-33%) None Present (0 %) %) -Necrotic Tissue Type Adherent Slough Adherent Slough -Structure Exposed N/A -Texture (Rachele-wound Skin Appearance) Scarring,Rash Assessed -Moisture (Rachele-wound Skin Appearance) No Abnormality Assessed, Maceration Maceration -Color (Rachele-wound Skin Appearance) Erythema Assessed, Rubor Erythema -Temperature (Rachele-wound Skin No Abnormality No Abnormality No Abnormality Appearance) (Pt Warm) (Pt Warm) (Pt Warm) -Tenderness on Palpation (Rachele-wound Yes Skin Appearance) -Ulcer Cleansing Soap and Water Soap and Water Soap and Water -Foul Odor after Cleansing No No No -Anesthetic Used 5% Lidocaine 5% Lidocaine 5% Lidocaine Gel Gel Gel Right Calf (cm) 65 68 63.8 Right Ankle (cm) 3.6 41 31 01/09/24 15:26 Wound Center Nurse 1 #1 R post LE- post-op cluster -Current Size (cm) - Length 1.5 -Current Size (cm) - Width 2 -Current Size (cm) - Depth 0.5 -Total Square Cm 3.0 -Photo Taken -Epithelialization -Tunneling -Undermining/Tunneling -Circular Undermining -Exudate Amt Large -Exudate Type Yellow/Green -Wound Margin Distinct, Outline Attached -Granulation Amt Medium (34-66%) -Granulation Quality Red -Slough/Fibrin -Necrosis Amt Small (1-33%) -Necrotic Tissue Type Adherent Slough -Structure Exposed -Texture (Rachele-wound Skin Appearance) Assessed,Rash -Moisture (Rachele-wound Skin Appearance) Assessed -Color (Rachele-wound Skin Appearance) Assessed, Erythema -Temperature (Rachele-wound Skin No Abnormality Appearance) (Pt Warm) -Tenderness on Palpation (Rachele-wound Skin Appearance) -Ulcer Cleansing Soap and Water -Foul Odor after Cleansing No -Anesthetic Used 5% Lidocaine Gel Right Calf (cm) 66.5 Right Ankle (cm) 38.5 WC - Nurse 2 - General Ulcer CM Notes Start: 12/19/23 15:17 Freq: Status: Active Protocol: Activity Type Activity Date Activity User E-sign Co-sign Detail Recorded Client Recorded Date Recorded By Document 12/19/23 15:40 [employer] Laptop 12/19/23 15:43 Document 12/25/23 11:30 Gift Card [employer] Laptop 12/25/23 11:34 Document 01/02/24 15:31 Gift Card [employer] Laptop 01/02/24 15:38 Document 01/09/24 15:51 Laptop 01/09/24 15:57 12/19/23 12/25/23 01/02/24 15:40 11:30 15:31 Wound Center Nurse 2 #1 R post LE- post-op cluster -Time 15:40 11:30 15:37 -Correct Patient Yes Yes Yes -Correct Side, Site, Position Yes Yes Yes -Correct Procedure Yes Yes Yes -Procedure Performed Yes Yes Yes -Type of Procedure Debridement Debridement Debridement -Clinical Debridement Subcutaneous Subcutaneous Subcutaneous -Tissue Removed Subcutaneous Subcutaneous Subcutaneous -Post Debridement (cm) - Length 2.2 1.9 3.0 -Post Debridement (cm) - Width 1.6 1.3 1.2 -Post Debridement (cm) - Depth 0.6 0.9 0.4 -Total Square (Post) (cm) 3.52 2.47 3.60 -Area of Debridement (cm) - Length 2.2 1.9 3.0 -Area of Debridement (cm) - Width 1.6 1.3 1.2 -Total Square (Area) (cm) 3.52 2.47 3.60 -Tunneling No No No -Undermining/Tunneling No No No -Circular Undermining No No No -Wound/Ulcer Outcome Not Healed Not Healed Not Healed -Ulcer Cleansing Rinsed/ Rinsed/ Rinsed/ Irrigated with Irrigated with Irrigated with Saline Saline Saline -Foul Odor after Cleansing No No No -Bioengineered Tissue No No No -Bleeding Controlled with Pressure Pressure Pressure -Treatment Response Procedure Procedure Procedure Tolerated Well Tolerated Well Tolerated Well -Offloading No No No -Debridement - Subq, 1st 20sq cm Yes Yes Yes Pain Scale: 0-10 Numeric Is Patient Pain Free? Yes Yes Yes 01/09/24 15:51 Wound Center Nurse 2 #1 R post LE- post-op cluster -Time 15:55 -Correct Patient Yes -Correct Side, Site, Position Yes -Correct Procedure Yes -Procedure Performed Yes -Type of Procedure Debridement -Clinical Debridement Subcutaneous -Tissue Removed Subcutaneous -Post Debridement (cm) - Length 2.8 -Post Debridement (cm) - Width 1.6 -Post Debridement (cm) - Depth 0.5 -Total Square (Post) (cm) 4.48 -Area of Debridement (cm) - Length 2.8 -Area of Debridement (cm) - Width 1.6 -Total Square (Area) (cm) 4.48 -Tunneling No -Undermining/Tunneling No -Circular Undermining No -Wound/Ulcer Outcome Not Healed -Ulcer Cleansing Rinsed/ Irrigated with Saline -Foul Odor after Cleansing No -Bioengineered Tissue No -Bleeding Controlled with Pressure -Treatment Response Procedure Tolerated Well -Offloading No -Debridement - Subq, 1st 20sq cm Yes Pain Scale: 0-10 Numeric Is Patient Pain Free? Yes WC - Nurse 3 - General Ulcer D/C NN Start: 12/19/23 15:17 Freq: Status: Active Protocol: Activity Type Activity Date Activity User E-sign Co-sign Detail Recorded Client Recorded Date Recorded By Document 12/19/23 15:48 KW Desktop 12/19/23 15:49 KW Document 12/25/23 12:03 DL Desktop 04/09/24 12:09 DL Document 12/28/23 11:34 KW [id number] 12/28/23 12:18 KW Document 12/31/23 09:52 KW Desktop 12/31/23 09:54 KW Edit Result 12/31/23 09:52 KW (1) [id number] 12/31/23 12:04 KW Edit Result 12/31/23 09:52 KW (2) [id number] 01/01/24 10:43 KW Document 01/02/24 15:59 BMF Desktop 01/02/24 16:00 BMF Document 01/04/24 10:26 MT Desktop 01/04/24 10:41 MT Document 01/07/24 11:28 BMF Desktop 01/07/24 11:30 BMF Document 01/09/24 16:02 KW Desktop 01/09/24 16:09 KW (1) #1 R post LE- post-op cluster - Negative Pressure Wound Therapy => Continue - Setting (mmHg) => 125 - Negative Pressure is => Continuous - NPWT Application Charge => NPWT > 50 sq cm ($ => ) (2) #1 R post LE- post-op cluster - NPWT Application Charge NPWT > 50 sq cm ($ => NPWT </= 50 sq cm ) => (disp) ($) 12/19/23 12/25/23 12/28/23 15:48 12:03 11:34 Wound Care Center Nurse 3 #1 R post LE- post-op cluster -Ulcer Cleansing Soap and Water -Foul Odor after Cleansing -Negative Pressure Wound Therapy Continue Continue -Setting (mmHg) 125 125 -Negative Pressure is Continuous Continuous -Regranex (If Applicable) -Primary Dressing Applied Promogran Hannah Matter -Other Dressing -Primary Dressing Covered/Secured with Dry Gauze, Secured with Tape -NPWT Application Charge NPWT </= 50 sq NPWT </= 50 sq cm (disp) ($) cm (disp) ($) -Mepilex Border -Promogran Hannah Matter 1 -Wound Comment(s) Right -Multi-Layered Wrap Application Multi-Layer Multi-Layer Comp - Right ($ Comp - Right ($ ) ) -Tubular Bandage Double Layer -Size of Tubigrip Used Size F -Size F ($) 2 Left -Tubular Bandage Double Layer -Size of Tubigrip Used Size F -Size F ($) 2 Treatment Response Vital Signs Temperature (97.8 F-99.1 F) 95.9 F L Temperature Source Temporal Pulse Rate (60-100) 114 H Pulse Location Monitor Respiratory Rate (12-18) 18 Respiratory rate source Observation Oxygen Delivery Method Room Air Blood Pressure (90/60-120/80) 200/89 H Blood Pressure Mean (mm Hg) 126 Source Monitor Position Semi-Fowlers Blood Pressure Location Left Arm Pain Scale: 0-10 Numeric Is Patient Pain Free? Yes Yes Yes WC - Visit Discharge Discharge Condition Stable Stable Stable Ambulatory Status Ambulatory Ambulatory Ambulatory Transportation Private Auto Private Auto Private Auto Medication Reconcilliation completed & No No No provided to patient/care provider Clinical Summary of Care Provided Yes Yes Yes Notes: new snap placed with 3M on top per order, ABD placed under 3M so snap and tub dont rub. Jessica Naidu LPN placed snap vac and 3M 12/31/23 01/02/24 01/04/24 09:52 15:59 10:26 Wound Care Center Nurse 3 #1 R post LE- post-op cluster -Ulcer Cleansing Rinsed/ Soap and Water Irrigated with Saline -Foul Odor after Cleansing No Yes -Negative Pressure Wound Therapy Continue Continue Start -Setting (mmHg) 125 125 125 -Negative Pressure is Continuous Continuous Continuous -Regranex (If Applicable) Continue -Primary Dressing Applied -Other Dressing snap -Primary Dressing Covered/Secured with Secured with Tape -NPWT Application Charge NPWT </= 50 sq NPWT & NPWT </= 50 sq cm (disp) ($) Debridement (nc cm (disp) ($) ) -Mepilex Border -Promogran Hannah Matter -Wound Comment(s) PT DRESSING WAS snap padded INTACT, JUST well under 3M NEEDED SNAP CANISTER CHANGED, WILL BE SEEN THIS WED FOR DR VISIT. Right -Multi-Layered Wrap Application Multi-Layer Multi-Layer Comp - Right ($ Comp - Right ($ ) ) -Tubular Bandage -Size of Tubigrip Used -Size F ($) Left -Tubular Bandage -Size of Tubigrip Used -Size F ($) Treatment Response Procedure Tolerated Well Vital Signs Temperature (97.8 F-99.1 F) 96.9 F L 98 F Temperature Source Temporal Temporal Pulse Rate (60-100) 102 H 109 H Pulse Location Monitor Monitor Respiratory Rate (12-18) 18 18 Respiratory rate source Observation Observation Oxygen Delivery Method Room Air Blood Pressure (90/60-120/80) 144/85 H 128/73 H Blood Pressure Mean (mm Hg) 104 91 Source Monitor Monitor Position Semi-Fowlers Sitting Blood Pressure Location Left Arm Right Forearm Pain Scale: 0-10 Numeric Is Patient Pain Free? Yes Yes Yes WC - Visit Discharge Discharge Condition Stable Stable Stable Ambulatory Status Ambulatory Ambulatory Ambulatory Transportation Private Auto Private Auto Private Auto Medication Reconcilliation completed & No No provided to patient/care provider Clinical Summary of Care Provided Yes Yes Notes: nurse visit. 3M & snap vac. 01/07/24 01/09/24 11:28 16:02 Wound Care Center Nurse 3 #1 R post LE- post-op cluster -Ulcer Cleansing Soap and Water -Foul Odor after Cleansing No -Negative Pressure Wound Therapy Continue -Setting (mmHg) 125 -Negative Pressure is Continuous -Regranex (If Applicable) -Primary Dressing Applied Hysept ($), Mepilex Border -Other Dressing -Primary Dressing Covered/Secured with -NPWT Application Charge NPWT </= 50 sq cm (disp) ($) -Mepilex Border 1 -Promogran Hannah Matter -Wound Comment(s) Right -Multi-Layered Wrap Application Multi-Layer Comp - Right ($ ) -Tubular Bandage Double Layer -Size of Tubigrip Used Size F -Size F ($) 2 Left -Tubular Bandage -Size of Tubigrip Used -Size F ($) Treatment Response Procedure Tolerated Well Vital Signs Temperature (97.8 F-99.1 F) Temperature Source Pulse Rate (60-100) 101 H Pulse Location Monitor Respiratory Rate (12-18) 18 Respiratory rate source Observation Oxygen Delivery Method Room Air Blood Pressure (90/60-120/80) 135/88 H Blood Pressure Mean (mm Hg) 103 Source Monitor Position Sitting Blood Pressure Location Left Forearm Pain Scale: 0-10 Numeric Is Patient Pain Free? Yes Yes WC - Visit Discharge Discharge Condition Stable Ambulatory Status Ambulatory Transportation Medication Reconcilliation completed & provided to patient/care provider Clinical Summary of Care Provided Notes: Assessment/Plan Assessment/Plan (1) Non-pressure chronic ulcer of unspecified part of 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 All findings were discussed with the patient. All questions were answered to the patient's satisfaction. Excisional debridement down to and including subcutaneous tissue with a number 3 mm dermal curette to the right posterior calf. Predebridement measurement was 2.7 x 1.4 x 0.4 cm. Postdebridement measurement is 2.8 x 1.6 x 0.5 cm. The patient will be on a wound VAC holiday secondary to irritated skin to the posterior right calf. The patient's ulceration was dressed with Dakin solution dry sterile dressing and double layer Tubigrip. Patient will perform daily dressing changes she is understanding of this. Review of the patient's culture show evidence of Enterobacter Colace and the patient will be placed on Levaquin 500 mg to be taken daily for 2 weeks. Follow-up at the wound care center with Dr. Lord in 1 week. (2) Lymphedema, not elsewhere classified: CODE(S): I89.0 - Lymphedema, not elsewhere classified (3) Cellulitis: CODE(S): L03.90 - Cellulitis, unspecified QUALIFIERS: Site of cellulitis: extremity Site of cellulitis of extremity: lower extremity Laterality: right Qualified Code(s): L03.115 - Cellulitis of right lower limb
== END 2024-01-15 23:59 | disposition home or self-care (01) ==
LOC: WC 15:15
PROVIDERS: PCP Internal Medicine; Referring Provider Internal Medicine; Visit Provider Podiatrist Foot & Ankle Surgery
DX: T81.31XA Disruption of external operation (surgical) wound, not elsewhere classified, initial encounter (principal); L97.213 Non-pressure chronic ulcer of right calf with necrosis of muscle; E11.42 Type 2 diabetes mellitus with diabetic polyneuropathy; I89.0 Lymphedema, not elsewhere classified; F17.200 Nicotine dependence, unspecified, uncomplicated; Z79.82 Long term (current) use of aspirin; Z79.84 Long term (current) use of oral hypoglycemic drugs; Z79.899 Other long term (current) drug therapy
CPT/HCPCS: 11042; 29581; 36415; 80053; 83036; 85027; 85379; 85652; 86140; 87070; 87075; 87077; 87101; 87186; 87205; 97606; 97607

== ENCOUNTER 2024-02-09 21:46 | Emergency (ER) | payer MEDICAID, SELFPAY ==
[2024-02-09 21:49] VITALS: BP 148/79; PULSE 108; RESP 20; TEMP 36.8; O2SAT 98; BMI 66.2
--- NOTE | 2024-02-09 22:27 | EDS_ITS ---
HPI History of Present Illness Chief Complaint: Weakness Informant: patient Onset/Context/Timing Onset: Days (2) Context: Gradual Onset Timing: Intermittent Quality: Weakness Location: Generalized Worsened by: Nothing Relieved by: Nothing Narrative Narrative: Patient presents with generalized weakness that has been getting worse over the past 2 days. Patient states she feels like her legs are getting weaker. Patient states she feels like her legs will give out on her at some point. Patient states this has been intermittent over the last 2 days. Patient states that tonight it became worse. Patient states nothing makes it better nothing makes it worse. Patient denies any fevers or chills. Patient admits to some nausea. Patient denies any vomiting. Patient denies any diarrhea. Patient admits to a cough but denies any sputum production. Patient admits to some pain in her low back. [facility] Medical History Open wound History of steroid therapy Diabetes Easy bruising Restless legs Migraine headache Wears glasses Cracked tooth Difficulty chewing GERD (gastroesophageal reflux disease) Electronic cigarette use CPAP (continuous positive airway pressure) dependence Shortness of breath on exertion History of stress test Anxiety Sleep apnea COPD (chronic obstructive pulmonary disease) Asthma Obesity Diabetes Bipolar 1 disorder Home Medications ?Medication ?Instructions ?Recorded ?Last Taken ?Type loratadine 10 mg tablet (Allergy 10 mg PO DAILY Allergies 07/07/13 11/07/19 History Relief (loratadine)) lorazepam 1 mg tablet 1 mg PO BID PRN PRN Anxiety 12/11/13 06/26/19 History trazodone 100 mg tablet 300 mg PO QHS depression 01/12/15 11/07/19 History montelukast 10 mg tablet 10 mg PO QHS 08/10/16 11/07/19 History sumatriptan succinate 25 mg tablet 25 mg PO .X1 PRN PRN Migraine 08/10/16 06/30/19 History (Imitrex) Symptoms aripiprazole 2 mg tablet 5 mg PO QHS 07/01/19 06/20/23 History citalopram 40 mg tablet 40 mg PO DAILY 07/01/19 09/28/23 History lamotrigine 200 mg tablet 200 mg PO BID 07/01/19 09/28/23 History metformin 500 mg tablet 1,000 mg PO BID dm 07/01/19 11/07/19 History naproxen 500 mg tablet 500 mg PO BID PRN PRN Pain Or Fever 07/01/19 Unknown History topiramate 100 mg tablet 100 mg PO BID 07/01/19 11/07/19 History glimepiride 2 mg tablet 4 mg PO DAILY 11/08/19 11/07/19 History lansoprazole 30 mg capsule,delayed 30 mg PO DAILY #30 CAPSULES 12/30/20 09/28/23 Rx release albuterol sulfate 90 mcg/actuation 2 puff inhalation Q4H PRN PRN 09/07/22 09/28/23 Rx aerosol inhaler (Ventolin HFA) Wheezing ##1 ferrous sulfate 325 mg (65 mg 325 mg PO TID #90 tabs 09/07/22 Unknown Rx iron) tablet (FeroSul) furosemide 20 mg tablet 20 mg PO BID 09/07/22 Unknown History cyclobenzaprine 10 mg tablet 10 mg PO TID PRN Muscle Spasm #20 12/09/22 Unknown Rx TABLETS pramipexole 1.5 mg tablet (Mirapex) 1.5 mg PO QHS 09/25/23 Unknown History ascorbic acid (vitamin C) 1,000 mg 1 g PO DAILY 90 days #90 tabs 09/28/23 Unknown Rx tablet (Vitamin C) aspirin 81 mg tablet,delayed 81 mg PO DAILY 30 days #30 tabs 09/28/23 Unknown Rx release calcium carbonate 500 mg-vitamin 1 tab PO DAILY 90 days #90 tabs 09/28/23 Unknown Rx D3 15 mcg (600 unit) tablet (Os-Wilfredo 500 + D3) cyclobenzaprine 10 mg tablet 10 mg PO TID 7 days #21 tabs 09/28/23 Unknown Rx docusate sodium 100 mg capsule 100 mg PO DAILY 10 days #10 caps 09/28/23 Unknown Rx (Colace) oxycodone-acetaminophen 5 mg-325 1 tab PO Q6H PRN pain 7 days #28 09/28/23 Unknown Rx mg tablet (Percocet) tabs sulfamethoxazole 800 1 tab PO BID 10 days #20 tabs 09/28/23 Unknown Rx mg-trimethoprim 160 mg tablet (Bactrim DS) sulfamethoxazole 800 1 tab PO BID 1 week #14 tabs 10/10/23 Unknown Rx mg-trimethoprim 160 mg tablet (Bactrim DS) ciprofloxacin HCl 750 mg tablet 750 mg PO BID 14 days #28 tabs 10/24/23 Unknown Rx levofloxacin 500 mg tablet 500 mg PO DAILY 2 weeks #14 tabs 01/09/24 Unknown Rx Allergy/AdvReac Type Severity Reaction Status Date / Time amoxicillin (From Augmentin) Allergy Intermediate Hives Verified 02/09/24 21:49 clavulanic acid (From Allergy Intermediate Hives Verified 02/09/24 21:49 Augmentin) melatonin Allergy Hives Verified 02/09/24 21:49 Penicillins Allergy Hives Verified 02/09/24 21:49 Surgical History History of cardiac catheterization History of umbilical hernia repair (~2016) History of herniorrhaphy Social History household members: none Smoking Status: Current every day smoker tobacco type: cigarettes and e- cigarettes substance use type: does not use ROS ROS ED Constitutional Constitutional ED: Denies chills or fever(s) Eyes Eyes: Denies blurry vision or change in vision ENT ENT ED: Denies rhinorrhea or sore throat Cardiovascular Cardiovascular: Denies chest pain or palpitations Respiratory/Chest Respiratory/Chest: Reports cough; Denies dyspnea Gastrointestinal Gastrointestinal: Reports nausea; Denies vomiting Genitourinary Genitourinary ED: Denies dysuria or hematuria Musculoskeletal Musculoskeletal: Reports back pain; Denies neck pain Integumentary Denies abscess or rash Neurologic Neurologic: Denies headache(s) or weakness Allergic/Immunologic Allergic/Immunologic ED: Denies mouth swelling or urticaria EXAM Physical Exam Const Vital Signs: 02/09/24 21:49 02/09/24 21:49 02/09/24 21:49 Temperature 98.3 F 98.3 F Temperature Source Temporal Temporal Pulse Rate 108 H 108 H Respiratory Rate 20 H 20 H Respiratory Effort Short of Breath Respiratory Pattern Tachypnea Blood Pressure 148/79 H 148/79 H Blood Pressure Mean 102 102 Pulse Ox 98 98 Oxygen Delivery Method Room Air Room Air 02/09/24 22:57 02/09/24 23:00 02/10/24 00:03 Temperature 98.3 F 98.5 F Temperature Source Temporal Temporal Pulse Rate 101 H 115 H 65 Respiratory Rate 22 H 22 H 16 Respiratory Effort Respiratory Pattern Blood Pressure 126/84 H 132/72 H 135/78 H Blood Pressure Mean 98 92 97 Pulse Ox 96 98 97 Oxygen Delivery Method Room Air Room Air Room Air Positive well nourished, well developed and obese General Appearance ED: well developed and NAD Nutritional Appearance: obese HEENT Reports moist mucous membranes Neck supple and no JVD Resp normal respiratory effort and clear to auscultation bilaterally Cardio regular rate and regular rhythm GI non-tender and non-distended Palpation: soft Neuro oriented x3, CN's II-XII intact bilaterally and no sensory deficits noted Sensorium / Orientation: alert Motor Exam: general weakness MDM MDM MDM Narrative Medical decision making narrative: Differential diagnosis includes urinary tract infection, viral illness, electrolyte abnormality, sepsis, neuropathy, and dehydration. CBC will be obtained to assess for leukocytosis and anemia. Comprehensive metabolic profile will be obtained to assess for hepatic function, renal function, and electrolyte abnormality. Urinalysis will be obtained to assess for urinary tract infection and hematuria. COVID-19, influenza, and RSV PCR will be obtained to assess for viral illness. Lactate will be obtained to assess for sepsis. Chest x-ray will be obtained to assess for pneumonia. Lab Data Attestation: I reviewed the patient's lab results. Lab results narrative: CBC was reviewed. White blood cell count was slightly low at 4.2. There is a mild anemia with a hemoglobin of 9.6 and hematocrit 35.2. Platelets were slightly low at 77. These are consistent with previous results. Comprehensive metabolic profile was reviewed and was within normal limits. Serum hCG was reviewed and was negative. Urinalysis was reviewed. There is no evidence of urinary tract infection or hematuria. COVID-19 PCR was reviewed and was negative. Influenza PCR was reviewed and was negative for influenza A and influenza B. RSV PCR was reviewed and was negative. Labs: Laboratory Results - last 24 hr 02/09/24 02/09/24 22:46 23:02 WBC 4.2 L RBC 4.88 Hgb 9.6 L Hct 35.2 L MCV 72.1 L MCH 19.7 L MCHC 27.3 L RDW Std Deviation 53.0 H RDW Coeff of Baltazar 21.2 H Plt Count 77 L MPV 9.4 Immature Gran % (Auto) 0.500 Neut % (Auto) 66.9 Lymph % (Auto) 23.7 Bureau % (Auto) 6.5 Eos % (Auto) 1.9 Baso % (Auto) 0.5 Absolute Neuts (auto) 2.8 Absolute Lymphs (auto) 0.99 Nucleated RBC % 0 Platelet Estimate SLT DEC Anisocytosis RARE Sodium 137 Potassium 3.6 Chloride 107 Carbon Dioxide 25.0 Anion Gap 5 BUN 10 Creatinine 0.67 Estim Creat Clear Calc 171.37 Est GFR (MDRD) Af Amer 125 Est GFR (MDRD) Non-Af 103 BUN/Creatinine Ratio 15.0 Glucose 173 H Lactic Acid 1.4 Calcium 9.1 Total Bilirubin 0.70 AST 26 ALT 24 Alkaline Phosphatase 113 Total Protein 7.7 Albumin 3.2 Globulin 4.5 H Albumin/Globulin Ratio 0.7 L Serum , Qual NEGATIVE Urine Color Yellow Urine Clarity Clear Urine pH 7.0 Ur Specific [place] 1.010 Urine Protein Negative Urine Glucose (UA) Normal Urine Ketones Negative Urine Occult Blood Negative Urine Nitrite Negative Urine Bilirubin Negative Urine Urobilinogen 1 H Ur Leukocyte Esterase 100 H Urine RBC 0 SEEN Urine WBC 0-5 SEEN Ur Squamous Epith Cells 0-5 SEEN Urine Bacteria 0 SEEN Urine Mucus 0 SEEN Radiography Chest X-Ray - ED: 1 View, Read by ED Physician, Read by Radiologist and No Acute Disease Diagnostic Testing: Clinical Impression(s) from Imaging Studies Chest X-Ray 02/09/24 23:05 IMPRESSION: No radiographic evidence of acute cardiopulmonary disease. Electronically Signed: Tom Mesa MD at 23:32 EDT , Portable 1 view chest x-ray was obtained. On my independent interpretation, lung [place] are clear. There is normal cardiac silhouette. Bony thorax is normal. There is no acute process noted. Radiologist also interpreted the x- ray and agrees. Treatment and Re-Evaluation :: Patient was given IV fluids. Patient was able to ambulate to the bathroom without difficulty. Patient was advised of her findings. Patient was advised that this may be a viral illness. Patient was instructed to follow-up with her primary care physician in 5 to 7 days. Patient was instructed to return if worse in any way. Patient understood and was agreeable with the plan. All questions were answered. Discharge Plan Triage Chief Complaint: Weakness ED Provider: Miles Dhaliwal Dx/Rx/DC Orders Clinical Impression: General weakness, Viral illness Instructions: ED Weakness (Uncertain Cause) Prescriptions: No Action loratadine [Allergy Relief (loratadine)] 10 MG tablet 10 mg PO DAILY lorazepam 1 MG tablet 1 mg PO BID PRN PRN (Reason: Anxiety) trazodone 100 MG tablet 300 mg PO QHS sumatriptan succinate [Imitrex] 25 MG tablet 25 mg PO .X1 PRN PRN (Reason: Migraine Symptoms) montelukast 10 MG tablet 10 mg PO QHS metformin 500 MG tablet 1,000 mg PO BID Patient Comments: TAKE 2 TABLETS TWICE DAILY WITH meals lamotrigine 200 mg tablet 200 mg PO BID Patient Comments: 1 tablet twice a day citalopram 40 tablet 40 mg PO DAILY topiramate 100 MG tablet 100 mg PO BID Patient Comments: TAKE 1 TABLET TWICE DAILY naproxen 500 MG tablet 500 mg PO BID PRN PRN (Reason: Pain Or Fever) Patient Comments: TAKE 1 TABLET TWICE DAILY WITH FOOD NEEDED FOR PAIN /inflammation aripiprazole 2 mg tablet 5 mg PO QHS Patient Comments: Take 1 tablet by mouth once a day glimepiride 2 MG tablet 4 mg PO DAILY lansoprazole 30 MG capsule 30 mg PO DAILY Qty: 30 0RF furosemide 20 mg tablet 20 mg PO BID ferrous sulfate [FeroSul] 325 mg (65 mg iron) tablet 325 mg PO TID Qty: 90 0RF Rx Instructions: May start once a day for a week, twice a day for a week, and then start 3 times daily. albuterol sulfate [Ventolin HFA] 90 mcg/actuation HFA aerosol inhaler 2 puff inhalation Q4H PRN MDD Dispense with spacer if availa PRN (Reason: Wheezing) Qty: 1 0RF cyclobenzaprine [cyclobenzaprine] 10 mg tablet 10 mg PO TID PRN (Reason: Muscle Spasm) Qty: 20 0RF pramipexole [Mirapex] 1.5 mg tablet 1.5 mg PO QHS sulfamethoxazole-trimethoprim [Bactrim DS] 800-160 mg tablet 1 tab PO BID 10 Days Qty: 20 0RF oxycodone-acetaminophen [Percocet] 5-325 mg tablet 1 tab PO Q6H PRN (Reason: pain) 7 Days Qty: 28 0RF cyclobenzaprine 10 mg tablet 10 mg PO TID 7 Days Qty: 21 0RF docusate sodium [Colace] 100 mg capsule 100 mg PO DAILY 10 Days Qty: 10 0RF ascorbic acid (vitamin C) [Vitamin C] 1,000 mg tablet 1 g PO DAILY 90 Days Qty: 90 0RF calcium carbonate-vitamin D3 [Os-Wilfredo 500 + D3] 500 mg-15 mcg (600 unit) tablet 1 tab PO DAILY 90 Days Qty: 90 0RF aspirin 81 mg tablet,delayed release (DR/EC) 81 mg PO DAILY 30 Days Qty: 30 0RF sulfamethoxazole-trimethoprim [Bactrim DS] 800-160 mg tablet 1 tab PO BID 7 Days Qty: 14 0RF ciprofloxacin HCl 750 mg tablet 750 mg PO BID 14 Days Qty: 28 0RF levofloxacin 500 mg tablet 500 mg PO DAILY 14 Days Qty: 14 0RF Primary Care Provider: Verona Villarreal Referrals: Verona Villarreal MD [Primary Care Provider] - 3-5 Days Print Language: Japanese Disposition Disposition: Home, Self Care
[2024-02-09 22:57] VITALS: BP 126/84; PULSE 101; RESP 22; TEMP 36.8; O2SAT 96
[2024-02-09 22:57] LABS: Absolute Lymphocyte Count 0.99 X10^3/uL (0.83-4.51); Absolute Neutrophil Count 2.8 X10^3/uL (2.0-7.7); Basophil# 0.02 X10^3/uL; Basophil% 0.5 % (0-1); Eosinophil# 0.08 X10^3/uL; Eosinophils% 1.9 % (0-5); Hematocrit 35.2 % (37-47); Hemoglobin 9.6 g/dL (12.0-15.0); Lymphocyte # 0.99 X10^3/ul (0.83-4.51); Lymphocyte % 23.7 % (19-41); Mean Corp Hgb Conc 27.3 g/dL (32-36); Mean Corpuscular Hgb 19.7 pg (27.0-32.0); Mean Corpuscular Volume 72.1 fL (81-99); Mean Platelet Vol. 9.4 fl (6.2-12.0); Monocyte# 0.27 X10^3/uL; Monocyte% 6.5 % (0-10); NRBC Flagged by Analyzer 0 % (0-5); Neutrophil # 2.79 X10^3/uL (2.7-7.7); Neutrophil % 66.9 % (47-70); POSITIVE COUNT YES; POSITIVE MORPHOLOGY YES; Platelet Count 77 K/mm3 (150-450); RBC Distribution Width CV 21.2 % (11.6-14.6); Red Blood Count 4.88 M/mm3 (4.2-5.4); White Blood Count 4.2 K/mm3 (4.4-11.0)
[2024-02-09 23:00] VITALS: BP 132/72; PULSE 115; RESP 22; TEMP 36.9; O2SAT 98
[2024-02-09] MEDS: 0.9% Normal Saline (1000mL) 1,000 ML 1000 ML IV (23:01)
[2024-02-09 23:04] LABS: Differential Indicated SCAN CRITERIA MET
--- NOTE | 2024-02-09 23:05 | RAD_ITS ---
EXAM: XR CHEST, 1 VIEW CLINICAL INDICATION: Weakness TECHNIQUE: Frontal view of the chest. COMPARISON: Single view chest 09/07/2022 FINDINGS: LUNGS AND PLEURAL SPACES: Unremarkable. No consolidation or edema. No pneumothorax. No effusion. HEART: Unremarkable. Cardiac silhouette not enlarged. MEDIASTINUM: Central airways and mediastinal contour are unremarkable. BONES/JOINTS: Unremarkable. No acute fracture. SOFT TISSUES: Unremarkable. RAD/Chest 1 View (Portable) IMPRESSION: No radiographic evidence of acute cardiopulmonary disease. Electronically Signed: Tom Mesa MD at 23:32 EDT ,
[2024-02-09 23:07] LABS: Bacteria 0 SEEN /hpf (None Seen); Mucous, Urine 0 SEEN /hpf (<or=2+); Red Blood Cells-Urine 0 SEEN /hpf (0-5)
[2024-02-09 23:08] LABS: Color, Urine Yellow (Yellow); Glucose, Dipstick Normal (Normal); Ketone-Dipstick Negative (Negative); Leukocyte Esterase-Dipstick 100 /ul (Negative); Nitrite-Dipstick Negative (Negative); Occult Blood-Urine Negative /ul (Negative); Protein-Dipstick Negative (Negative); Urine Bilirubin Dipstick Negative (Negative); Urine Clarity Clear (Clear); Urine Urobilinogen 1 mg/dl (Normal)
[2024-02-09 23:15] LABS: Squamous Epithelial Cells - UA 0-5 SEEN /hpf (5-10); White Blood Cells 0-5 SEEN /hpf (0-5)
[2024-02-09 23:20] LABS: Lactic Acid 1.4 mmol/L (0.4-1.9)
[2024-02-09 23:22] LABS: ALB/GLOB Ratio 0.7 RATIO (0.9-2.4); AST(SGOT) 26 U/L (15-37); Alanine Aminotransfer ALT/SGPT 24 U/L (13-56); Albumin, Serum 3.2 g/dL (3.2-5.0); Alkaline Phosphatase 113 U/L (45-117); Anion Gap 5 (5-15); BUN 10 mg/dL (7-18); Calcium,Total 9.1 mg/dL (8.5-10.1); Chloride 107 mmol/L (98-107); Creatinine, Serum 0.67 mg/dL (0.55-1.02); EST Glomerular Filtration Rate 103 mL/min (>60); Est Glom Filt Rate - Afr Amer 125 mL/min (>60); Estimated Creatinine Clearance 171.37 ml/min; Globulin 4.5 g/dL (2.2-4.2); Glucose 173 mg/dL (74-106); Potassium 3.6 mmol/L (3.5-5.1); Protein, Total 7.7 g/dL (6.4-8.2); Sodium Level 137 mmol/L (136-145)
[2024-02-09 23:38] LABS: Anisocytosis RARE; Platelet Estimate SLT DEC (ADEQ)
[2024-02-09 23:41] LABS: Internal QC Validated? YES +Cl - CLEAR BKGD; Pregnancy, Serum, hCG Quali. NEGATIVE Negative
[2024-02-10 00:03] VITALS: BP 135/78; PULSE 65; RESP 16; O2SAT 97
[2024-02-10 00:33] VITALS: BP 138/90; PULSE 95; RESP 16; TEMP 36.8; O2SAT 96
== END 2024-02-10 00:34 | disposition home or self-care (01) ==
PROVIDERS: Emergency Provider Emergency Medicine; PCP Internal Medicine; Visit Provider Emergency Medicine
DX: B34.9 Viral infection, unspecified (principal); F31.9 Bipolar disorder, unspecified; J44.9 Chronic obstructive pulmonary disease, unspecified; E11.9 Type 2 diabetes mellitus without complications; R53.1 Weakness; Z11.52 Encounter for screening for COVID-19; R11.0 Nausea; E66.9 Obesity, unspecified; F17.210 Nicotine dependence, cigarettes, uncomplicated; F17.290 Nicotine dependence, other tobacco product, uncomplicated; Z79.82 Long term (current) use of aspirin; Z79.84 Long term (current) use of oral hypoglycemic drugs; Z79.899 Other long term (current) drug therapy
CPT/HCPCS: 71045; 80053; 81001; 83605; 84703; 85025; 87631; 96360; 99283; J7030; A4216

== ENCOUNTER 2024-02-15 10:30 | Outpatient (RCR) | payer MEDICAID, SELFPAY ==
[2024-01-16 00:45] VITALS: BP 143/85; PULSE 113; RESP 18; TEMP 36.6; BMI 62.5
[2024-01-16 15:17] VITALS: BP 108/57; PULSE 108; RESP 18; TEMP 36.8; BMI 62.5
--- NOTE | 2024-01-16 16:33 | PN.PCM_ITS ---
History of Present Illness Date of Service: 01/16/24 Chief Complaint: Ulceration right posterior leg History of Wound: Ulceration right posterior leg Subjective Subjective Nanci Rodriguez is a 43-year-old diabetic female presenting to clinic today for follow-up evaluation of full-thickness ulceration of posterior right calf, she has been doing wound care dressing changes daily. Patient states the increased swelling without using the 3M compression wraps. She has been using the double layer Tubigrip's but states that she is unsure if the compression is strong enough. She does admit to up-and-down blood sugar but overall has been well- controlled. She denies any smoking at this time. She denies trauma. Denies constitutional symptoms. No other pedal complaints at this time. Objective Data Objective Data Vital Signs: Vital Signs Temp Pulse Resp BP 98.3 F 108 H 18 108/57 L 01/16/24 15:17 01/16/24 15:17 01/16/24 15:17 01/16/24 15:17 Weight: 160.223 kg Body Mass Index (BMI) 62.5 Physical Exam Narrative Vascular: DP and PT pulses palpable. CFT is brisk. Nonpitting edema appreciated to right lower extremity. No erythema or proximal streaking is appreciated. Neurological: Light touch intact. Patient response to painful stimuli. Dermatological: Evidence of surgical wound dehiscence secondary to nonweightbearing and lack of medical compliance. Full-thickness ulceration measures 2.6 x 1.5 x 0.9 cm. Wound base is granular nature with sanguinous drainage after debridement. No evidence of erythema or proximal streaking. C annot rule out infection at this time. Excisional debridement down to and including subcutaneous tissue with a number 3 mm dermal curette to the right posterior calf. Predebridement measurement was 2.5 x 1.4 x 0.5 cm. Postdebridement measurement is 2.6 x 1.5 x 0.9 cm. Musculoskeletal: No pain with calf compression. Mild pain to palpation full- thickness ulceration right calf. Debridement Note Debridement Note Debridement Free Text: Excisional debridement down to and including subcutaneous tissue with a number 3 mm dermal curette to the right posterior calf. Predebridement measurement was 2.5 x 1.4 x 0.5 cm. Postdebridement measurement is 2.6 x 1.5 x 0.9 cm. Post-Debridement Measurements and Additional Note: Post-Debridement Measurements/Treatment WC - Nurse 1 - General Ulcer Assessment Start: 01/16/24 15:16 Freq: Status: Active Protocol: WATSON Activity Type Activity Date Activity User E-sign Co-sign Detail Recorded Client Recorded Date Recorded By Document 01/16/24 15:17 RB Desktop 01/16/24 15:19 RB 01/16/24 15:17 WC - Today's Visit Information Type of service Follow-up Visit (Physician/PHARMACY SERVICES DIRECTOR ) Arrival Mode Ambulatory Transfer Assistance None Patient Identification Verified (Name & Yes ) Patient Requires Transmission-Based No Precautions Height and Weight Body Mass Index (BMI) 62.5 BMI Classification Obese Vital Signs Temperature (97.8 F-99.1 F) 98.3 F Temperature Source Temporal Pulse Rate (60-100) 108 H Pulse Location Monitor Respiratory Rate (12-18) 18 Respiratory rate source Observation Blood Pressure (90/60-120/80) 108/57 L Blood Pressure Mean (mm Hg) 74 Source Monitor Position Semi-Fowlers Blood Pressure Location Right Arm History Since Last Visit- (Skip if this is Patient's initial visit) Have you changed medications since your No last visit? Any new allergies or adverse reactions No Had a fall/change in ADL's that may No increase risk of falls Signs or symptoms of abuse and/or No neglect since last visit Have you been in the hospital since your No last visit? Has dressing in place as prescribed Yes Has compression in place as prescribed Yes Has offloadiing in place as prescribed No Experienced any changes in pain level or No management Pain Scale: 0-10 Numeric Is Patient Pain Free? No RLE -Description Cramping -Intensity 8 -Pain Behavior Withdrawal from Touch -Pain Aggravating Factors Walking -Alleviating Factors/Interventions Medication -Effectiveness of Alleviating Factor/ Minimally Intervention effective WC - Nurse 1 - General Ulcer Measurement Start: 01/16/24 15:16 Freq: Status: Active Protocol: Activity Type Activity Date Activity User E-sign Co-sign Detail Recorded Client Recorded Date Recorded By Document 01/16/24 15:17 RB Desktop 01/16/24 15:19 RB 01/16/24 15:17 Wound Center Nurse 1 #1 R post LE- post-op cluster -Combined with other wound No -Current Size (cm) - Length 2.8 -Current Size (cm) - Width 1.5 -Current Size (cm) - Depth 0.5 -Total Square Cm 4.20 -Photo Taken Yes -Tunneling No -Undermining/Tunneling No -Circular Undermining No -Exudate Amt Large -Exudate Type Serosanguineous -Wound Margin Thickened & Rolled Under -Granulation Amt Medium (34-66%) -Granulation Quality Pale -Slough/Fibrin Yes -Necrosis Amt Medium (34-66%) -Necrotic Tissue Type Adherent Slough -Structure Exposed N/A -Texture (Rachele-wound Skin Appearance) Assessed -Moisture (Rachele-wound Skin Appearance) Assessed -Color (Rachele-wound Skin Appearance) Erythema -Temperature (Rachele-wound Skin No Abnormality Appearance) (Pt Warm) -Tenderness on Palpation (Rachele-wound No Skin Appearance) -Ulcer Cleansing Wound Cleanser -Foul Odor after Cleansing No -Anesthetic Used 5% Lidocaine Gel Lower Limb Edema Present Yes Right Calf (cm) 72 Right Ankle (cm) 34 WC - Nurse 2 - General Ulcer CM Notes Start: 01/16/24 15:16 Freq: Status: Active Protocol: Activity Type Activity Date Activity User E-sign Co-sign Detail Recorded Client Recorded Date Recorded By Document 01/16/24 15:27 Laptop 01/16/24 15:32 01/16/24 15:27 Wound Center Nurse 2 #1 R post LE- post-op cluster -Time 15:28 -Correct Patient Yes -Correct Side, Site, Position Yes -Correct Procedure Yes -Procedure Performed Yes -Type of Procedure Debridement -Clinical Debridement Subcutaneous -Tissue Removed Subcutaneous -Post Debridement (cm) - Length 2.6 -Post Debridement (cm) - Width 1.5 -Post Debridement (cm) - Depth 0.9 -Total Square (Post) (cm) 3.90 -Area of Debridement (cm) - Length 2.6 -Area of Debridement (cm) - Width 1.5 -Total Square (Area) (cm) 3.90 -Tunneling No -Undermining/Tunneling No -Circular Undermining No -Wound/Ulcer Outcome Not Healed -Ulcer Cleansing Rinsed/ Irrigated with Saline -Foul Odor after Cleansing No -Bioengineered Tissue No -Bleeding Controlled with Pressure -Treatment Response Procedure Tolerated Well -Offloading No -Debridement - Subq, 1st 20sq cm Yes Pain Scale: 0-10 Numeric Is Patient Pain Free? Yes WC - Nurse 3 - General Ulcer D/C NN Start: 01/16/24 15:16 Freq: Status: Active Protocol: Activity Type Activity Date Activity User E-sign Co-sign Detail Recorded Client Recorded Date Recorded By Document 01/16/24 15:43 KW Desktop 01/16/24 15:45 KW 01/16/24 15:43 Wound Care Center Nurse 3 #1 R post LE- post-op cluster -Primary Dressing Applied Optilok 6.5x10, Promogran Hannah Matter -Optilok 6.5x10 1 -Promogran Hannah Matter 1 Right -Multi-Layered Wrap Application Multi-Layer Comp - Right ($ ) Pain Scale: 0-10 Numeric Is Patient Pain Free? 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 All findings were discussed with the patient. All questions were answered to the patient's satisfaction. Excisional debridement down to and including subcutaneous tissue with a number 3 mm dermal curette to the right posterior calf. Predebridement measurement was 2.5 x 1.4 x 0.5 cm. Postdebridement measurement is 2.6 x 1.5 x 0.9 cm. Right lower extremities were cleaned and patted dry. The ulceration was with Hannah and 3M multilayer compression wrap. The patient will follow-up on Sunday for nursing visit for dressing change. We will begin authorization for epi cord 2 x 3 skin graft substitutes to be placed to the healing wound that has been delayed in healing. We believe that the skin graft substitute will help accelerate the patient's wound care healing. Discussed with the patient great detail to continue strict blood sugar control. Follow-up at the wound care center with Dr. Lord in 1 week. (2) Lymphedema, not elsewhere classified: CODE(S): I89.0 - Lymphedema, not elsewhere classified
--- NOTE | 2024-01-17 11:52 | WC ---
01/16/2024 RIGHT POST. LEG
[2024-01-18 10:47] VITALS: BP 147/84; PULSE 111; TEMP 36.3; BMI 62.5
[2024-01-23 14:14] VITALS: BP 168/91; PULSE 115; RESP 24; TEMP 36.8; BMI 62.5
--- NOTE | 2024-01-23 15:17 | PCM.WC.PN ---
History of Present Illness Date of Service: 01/23/24 Chief Complaint: Ulceration right posterior leg History of Wound: Ulceration right posterior leg Subjective Subjective Mrs. Rodriguez is a 43-year-old diabetic female resenting to the wound care center today for follow-up evaluation of posterior right calf ulceration. Patient has been compliant with her dressing changes and multilayer compression bandage. Patient has been approved for skin graft substitutes and will begin that today. Patient is to continue strict blood sugar control which she admits to being well-controlled. She states her gums are still healing from her dental surgery. Denies trauma. Denies constitutional symptoms. No other pedal complaints at this time. Objective Data Objective Data Vital Signs: Vital Signs Temp Pulse Resp BP 98.2 F 115 H 24 H 168/91 H 01/23/24 14:14 01/23/24 14:14 01/23/24 14:14 01/23/24 14:14 Weight: 160.223 kg Body Mass Index (BMI) 62.5 Physical Exam Narrative Vascular: DP and PT pulses palpable. CFT is brisk. Nonpitting edema appreciated to right lower extremity. No erythema or proximal streaking is appreciated. Neurological: Light touch intact. Patient response to painful stimuli. Dermatological: Evidence of surgical wound dehiscence secondary to nonweightbearing and lack of medical compliance. Full-thickness ulceration measures 2.1 x 2.0 x 0.7 cm. Wound base is granular nature with sanguinous drainage after debridement. No evidence of erythema or proximal streaking. Cannot rule out infection at this time. Excisional debridement down to and including subcutaneous tissue with a number 3 mm dermal curette to the right posterior calf. Predebridement measurement was 1.9 x 1.8 x 0.4 cm. Postdebridement measurement is 2.1 x 2.0 x 0.7 cm. EpiCord 2.0 x 3.0 cm graft was applied to the right posterior calf full-thickness ulceration with 100% use. First application. The graft site was free and clear of any infection. The wound/skin graft substitute was dressed with nonadherent bandage secured in place with Steri-Strips followed by bolster dressing as well as a multilayer 3M compression bandage down to the right lower extremity. Musculoskeletal: No pain with calf compression. Mild pain to palpation full-thickness ulceration right calf. Debridement Note Debridement Note Debridement Free Text: Excisional debridement down to and including subcutaneous tissue with a number 3 mm dermal curette to the right posterior calf. Predebridement measurement was 1.9 x 1.8 x 0.4 cm. Postdebridement measurement is 2.1 x 2.0 x 0.7 cm. EpiCord 2.0 x 3.0 cm graft was applied to the right posterior calf full-thickness ulceration with 100% use. First application. The graft site was free and clear of any infection. The wound/skin graft substitute was dressed with nonadherent bandage secured in place with Steri-Strips followed by bolster dressing as well as a multilayer 3M compression bandage down to the right lower extremity. Post-Debridement Measurements and Additional Note: Post-Debridement Measurements/Treatment - Nurse 1 - General Ulcer Assessment Start: 01/16/24 15:16 Freq: Status: Active Protocol: PANCHITO.LOWEXT Activity Type Activity Date Activity User E-sign Co-sign Detail Recorded Client Recorded Date Recorded By Document 01/16/24 15:17 RB Desktop 01/16/24 15:19 RB Document 01/18/24 10:47 DS Desktop 01/18/24 11:06 DS Document 01/23/24 14:14 DL Desktop 01/23/24 14:23 DL 01/16/24 01/18/24 01/23/24 15:17 10:47 14:14 - Today's Visit Information Type of service Follow-up Visit Nurse-only Follow-up Visit (Physician/PROFESSIONAL PROGRAMMER ANALYST Visit (Physician/PROFESSIONAL PROGRAMMER ANALYST ) ) Arrival Mode Ambulatory Ambulatory Ambulatory Transfer Assistance None None Patient Identification Verified (Name & Yes Yes Yes ) Patient Requires Transmission-Based No No Precautions Safety Precautions NA Height and Weight Body Mass Index (BMI) 62.5 62.5 62.5 BMI Classification Obese Obese Obese Vital Signs Temperature (97.8 F-99.1 F) 98.3 F 97.4 F L 98.2 F Temperature Source Temporal Temporal Temporal Pulse Rate (60-100) 108 H 111 H 115 H Pulse Location Monitor Monitor Monitor Respiratory Rate (12-18) 18 24 H Respiratory rate source Observation Observation Blood Pressure (90/60-120/80) 108/57 L 147/84 H 168/91 H Blood Pressure Mean (mm Hg) 74 105 116 Source Monitor Monitor Monitor Position Semi-Fowlers Sitting Blood Pressure Location Right Arm History Since Last Visit- (Skip if this is Patient's initial visit) Have you changed medications since your No No last visit? Any new allergies or adverse reactions No No Had a fall/change in ADL's that may No No increase risk of falls Signs or symptoms of abuse and/or No No neglect since last visit Have you been in the hospital since your No No last visit? Has dressing in place as prescribed Yes Yes Has compression in place as prescribed Yes Yes Has offloadiing in place as prescribed No Yes Experienced any changes in pain level or No No management Left Footwear Slipper Right Footwear Slipper Pain Scale: 0-10 Numeric Is Patient Pain Free? No No Yes RLE -Description Cramping Aching -Intensity 8 9 -Pain Behavior Withdrawal from No Change in Touch Behavior -Pain Aggravating Factors Walking -Alleviating Factors/Interventions Medication Will continue to monitor, Patient denies need for intervention, Emotional Support -Effectiveness of Alleviating Factor/ Minimally Intervention effective WC - Nurse 1 - General Ulcer Measurement Start: 01/16/24 15:16 Freq: Status: Active Protocol: Activity Type Activity Date Activity User E-sign Co-sign Detail Recorded Client Recorded Date Recorded By Document 01/16/24 15:17 RB Desktop 01/16/24 15:19 RB Document 01/23/24 14:14 DL Desktop 01/23/24 14:23 DL 01/16/24 01/23/24 15:17 14:14 Wound Center Nurse 1 #1 R post LE- post-op cluster -Combined with other wound No -Current Size (cm) - Length 2.8 2.2 -Current Size (cm) - Width 1.5 1.5 -Current Size (cm) - Depth 0.5 0.9 -Total Square Cm 4.20 3.30 -Photo Taken Yes -Tunneling No -Undermining/Tunneling No -Circular Undermining No -Exudate Amt Large Medium -Exudate Type Serosanguineous Serosanguineous -Wound Margin Thickened & Distinct, Rolled Under Outline Attached -Granulation Amt Medium (34-66%) None Present (0 %) -Granulation Quality Pale -Slough/Fibrin Yes -Necrosis Amt Medium (34-66%) Large (67-100%) -Necrotic Tissue Type Adherent Slough Adherent Slough -Structure Exposed N/A N/A -Texture (Rachele-wound Skin Appearance) Assessed Scarring,Rash -Moisture (Rachele-wound Skin Appearance) Assessed Maceration -Color (Rachele-wound Skin Appearance) Erythema No Abnormality -Temperature (Rachele-wound Skin No Abnormality No Abnormality Appearance) (Pt Warm) (Pt Warm) -Tenderness on Palpation (Rachele-wound No Skin Appearance) -Ulcer Cleansing Wound Cleanser Soap and Water -Foul Odor after Cleansing No No -Anesthetic Used 5% Lidocaine 5% Lidocaine Gel Gel Lower Limb Edema Present Yes Right Calf (cm) 72 65 Right Ankle (cm) 34 31.2 WC - Nurse 2 - General Ulcer CM Notes Start: 01/16/24 15:16 Freq: Status: Active Protocol: Activity Type Activity Date Activity User E-sign Co-sign Detail Recorded Client Recorded Date Recorded By Document 01/16/24 15:27 Laptop 01/16/24 15:32 Document 01/23/24 14:44 Laptop 01/23/24 14:52 01/16/24 01/23/24 15:27 14:44 Wound Center Nurse 2 #1 R post LE- post-op cluster -Time 15:28 14:45 -Correct Patient Yes Yes -Correct Side, Site, Position Yes Yes -Correct Procedure Yes Yes -Procedure Performed Yes Yes -Type of Procedure Debridement Debridement -Clinical Debridement Subcutaneous Subcutaneous -Tissue Removed Subcutaneous Subcutaneous -Post Debridement (cm) - Length 2.6 2.1 -Post Debridement (cm) - Width 1.5 2.0 -Post Debridement (cm) - Depth 0.9 0.7 -Total Square (Post) (cm) 3.90 4.20 -Area of Debridement (cm) - Length 2.6 2.1 -Area of Debridement (cm) - Width 1.5 2.0 -Total Square (Area) (cm) 3.90 4.20 -Tunneling No No -Undermining/Tunneling No No -Circular Undermining No No -Wound/Ulcer Outcome Not Healed Not Healed -Ulcer Cleansing Rinsed/ Rinsed/ Irrigated with Irrigated with Saline Saline -Foul Odor after Cleansing No No -Bioengineered Tissue No Yes -Type of Bioengineered Tissue Epicord -Expiration Date 02/16/28 -Product Lot Number [id number] -Percent Used 100 -Lot number of Saline Used [id number] -Bleeding Controlled with Pressure Pressure -Treatment Response Procedure Procedure Tolerated Well Tolerated Well -Offloading No No -Debridement - Subq, 1st 20sq cm Yes No -Apply Skin Sub - 1st 25 sq cm - Legs 1 -Epicord (per sq cm) 6 Pain Scale: 0-10 Numeric Is Patient Pain Free? Yes Yes WC - Nurse 3 - General Ulcer D/C NN Start: 01/16/24 15:16 Freq: Status: Active Protocol: Activity Type Activity Date Activity User E-sign Co-sign Detail Recorded Client Recorded Date Recorded By Document 01/16/24 15:43 KW Desktop 01/16/24 15:45 KW Document 01/18/24 10:47 DS Desktop 01/18/24 11:06 DS Document 01/23/24 14:55 DL Desktop 01/23/24 14:56 DL 01/16/24 01/18/24 01/23/24 15:43 10:47 14:55 Wound Care Center Nurse 3 #1 R post LE- post-op cluster -Ulcer Cleansing Soap and Water -Foul Odor after Cleansing No -Primary Dressing Applied Optilok 6.5x10, Optilok 6.5x10, Promogran Promogran Hannah Matter Hannah Matter -Other Dressing Epicord -Primary Dressing Covered/Secured with Dry Gauze & Roll Gauze, Secured with Tape -Optilok 6.5x10 1 1 -Promogran Hannah Matter 1 1 Right -Multi-Layered Wrap Application Multi-Layer Multi-Layer Multi-Layer Comp - Right ($ Comp - Right ($ Comp - Right ($ ) ) ) Vital Signs Temperature (97.8 F-99.1 F) 97.4 F L Temperature Source Temporal Pulse Rate (60-100) 111 H Pulse Location Monitor Blood Pressure (90/60-120/80) 147/84 H Blood Pressure Mean (mm Hg) 105 Source Monitor Position Sitting Pain Scale: 0-10 Numeric Is Patient Pain Free? 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 All findings were discussed with the patient. All questions were answered to the patient's satisfaction. Excisional debridement down to and including subcutaneous tissue with a number 3 mm dermal curette to the right posterior calf. Predebridement measurement was 1.9 x 1.8 x 0.4 cm. Postdebridement measurement is 2.1 x 2.0 x 0.7 cm. EpiCord 2.0 x 3.0 cm graft was applied to the right posterior calf full-thickness ulceration with 100% use. First application. The graft site was free and clear of any infection. The wound/skin graft substitute was dressed with nonadherent bandage secured in place with Steri-Strips followed by bolster dressing as well as a multilayer 3M compression bandage down to the right lower extremity. We will move forward with authorization for dietary consult. Follow-up at the wound care center with Dr. Lord in 1 week. (2) Lymphedema, not elsewhere classified: CODE(S): I89.0 - Lymphedema, not elsewhere classified
[2024-01-25 10:37] VITALS: BP 166/88; PULSE 115; RESP 18; TEMP 36.3; BMI 62.5
[2024-01-30 14:49] VITALS: RESP 18; TEMP 35.8; BMI 62.5
--- NOTE | 2024-01-30 16:25 | PN.PCM_ITS ---
History of Present Illness Date of Service: 01/30/24 Chief Complaint: Ulceration right posterior leg History of Wound: Ulceration right posterior leg Subjective Subjective Mrs. Rodriguez is a 43-year-old diabetic female resenting to the wound care center today for follow-up evaluation of posterior right calf ulceration. Patient has left her multilayer compression bandage clean dry and intact. She has had strict blood sugar control. However she does states she had a mild elevation and is unsure why this morning. She denies trauma. Denies constitutional symptoms. No other pedal complaints at this time. Objective Data Objective Data Vital Signs: Vital Signs Temp Pulse Resp BP O2 Del Method 96.5 F L 115 H 18 166/88 H Room Air 01/30/24 14:49 01/25/24 10:37 01/30/24 14:49 01/25/24 10:37 01/30/24 14:49 Oxygen Delivery Method Room Air Weight: 160.223 kg Body Mass Index (BMI) 62.5 Physical Exam Narrative Vascular: DP and PT pulses palpable. CFT is brisk. Nonpitting edema appreciated to right lower extremity. No erythema or proximal streaking is appreciated. Neurological: Light touch intact. Patient response to painful stimuli. Dermatological: Evidence of surgical wound dehiscence secondary to nonwei ghtbearing and lack of medical compliance. Full-thickness ulceration measures 2.3 x 1.4 x 0.5 cm. Wound base is granular nature with sanguinous drainage after debridement. No evidence of erythema or proximal streaking. Cannot rule out infection at this time. Excisional debridement down to and including subcutaneous tissue with a number 3 mm dermal curette to the right posterior calf. Predebridement measurement was 2.2 x 1.3 x 0.3 cm. Postdebridement measurement is 2.3 x 1.4 x 0.5 cm. EpiCord 2.0 x 3.0 cm graft was applied to the right posterior calf full- thickness ulceration with 100% use. Second application. The graft site was free and clear of any infection. The wound/skin graft substitute was dressed with nonadherent bandage secured in place with Steri-Strips followed by bolster dressing as well as a multilayer 3M compression bandage down to the right lower extremity. Musculoskeletal: No pain with calf compression. Mild pain to palpation full- thickness ulceration right calf. Debridement Note Debridement Note Debridement Free Text: Excisional debridement down to and including subcutaneous tissue with a number 3 mm dermal curette to the right posterior calf. Predebridement measurement was 2.2 x 1.3 x 0.3 cm. Postdebridement measurement is 2.3 x 1.4 x 0.5 cm. EpiCord 2.0 x 3.0 cm graft was applied to the right posterior calf full- thickness ulceration with 100% use. Second application. The graft site was free and clear of any infection. The wound/skin graft substitute was dressed with nonadherent bandage secured in place with Steri-Strips followed by bolster dressing as well as a multilayer 3M compression bandage down to the right lower extremity. Post-Debridement Measurements and Additional Note: Post-Debridement Measurements/Treatment - Nurse 1 - General Ulcer Assessment Start: 01/16/24 15:16 Freq: Status: Active Protocol: [email or web address] Activity Type Activity Date Activity User E-sign Co-sign Detail Recorded Client Recorded Date Recorded By Document 01/16/24 15:17 RB Desktop 01/16/24 15:19 RB Document 01/18/24 10:47 DS Desktop 01/18/24 11:06 DS Document 01/23/24 14:14 DL Desktop 01/23/24 14:23 DL Document 01/25/24 10:37 DL Desktop 01/25/24 10:52 DL Document 01/30/24 14:49 KW [id number] 01/30/24 14:56 KW 01/16/24 01/18/24 01/23/24 15:17 10:47 14:14 - Today's Visit Information Type of service Follow-up Visit Nurse-only Follow-up Visit (Physician/SOFTWARE ENGINEER WEB APPLICATIONS Visit (Physician/SOFTWARE ENGINEER WEB APPLICATIONS ) ) Arrival Mode Ambulatory Ambulatory Ambulatory Transfer Assistance None None Patient Identification Verified (Name & Yes Yes Yes ) Patient Requires Transmission-Based No No Precautions Safety Precautions NA Height and Weight Body Mass Index (BMI) 62.5 62.5 62.5 BMI Classification Obese Obese Obese Vital Signs Temperature (97.8 F-99.1 F) 98.3 F 97.4 F L 98.2 F Temperature Source Temporal Temporal Temporal Pulse Rate (60-100) 108 H 111 H 115 H Pulse Location Monitor Monitor Monitor Respiratory Rate (12-18) 18 24 H Respiratory rate source Observation Observation Oxygen Delivery Method Blood Pressure (90/60-120/80) 108/57 L 147/84 H 168/91 H Blood Pressure Mean (mm Hg) 74 105 116 Source Monitor Monitor Monitor Position Semi-Fowlers Sitting Blood Pressure Location Right Arm History Since Last Visit- (Skip if this is Patient's initial visit) Have you changed medications since your No No last visit? Any new allergies or adverse reactions No No Had a fall/change in ADL's that may No No increase risk of falls Signs or symptoms of abuse and/or No No neglect since last visit Have you been in the hospital since your No No last visit? Has dressing in place as prescribed Yes Yes Has compression in place as prescribed Yes Yes Has offloadiing in place as prescribed No Yes Experienced any changes in pain level or No No management Left Footwear Slipper Right Footwear Slipper Pain Scale: 0-10 Numeric Is Patient Pain Free? No No Yes RLE -Description Cramping Aching -Intensity 8 9 -Pain Behavior Withdrawal from No Change in Touch Behavior -Pain Aggravating Factors Walking -Alleviating Factors/Interventions Medication Will continue to monitor, Patient denies need for intervention, Emotional Support -Effectiveness of Alleviating Factor/ Minimally Intervention effective 01/25/24 01/30/24 10:37 14:49 WC - Today's Visit Information Type of service Nurse-only Follow-up Visit Visit (Physician/SOFTWARE ENGINEER WEB APPLICATIONS ) Arrival Mode Ambulatory Ambulatory Transfer Assistance None Patient Identification Verified (Name & Yes Yes ) Patient Requires Transmission-Based No Precautions Safety Precautions Height and Weight Body Mass Index (BMI) 62.5 62.5 BMI Classification Obese Obese Vital Signs Temperature (97.8 F-99.1 F) 97.4 F L 96.5 F L Temperature Source Temporal Temporal Pulse Rate (60-100) 115 H Pulse Location Monitor Monitor Respiratory Rate (12-18) 18 18 Respiratory rate source Observation Observation Oxygen Delivery Method Room Air Blood Pressure (90/60-120/80) 166/88 H Blood Pressure Mean (mm Hg) 114 Source Monitor Monitor Position Sitting Blood Pressure Location Left Forearm History Since Last Visit- (Skip if this is Patient's initial visit) Have you changed medications since your No No last visit? Any new allergies or adverse reactions No No Had a fall/change in ADL's that may No No increase risk of falls Signs or symptoms of abuse and/or No No neglect since last visit Have you been in the hospital since your No No last visit? Has dressing in place as prescribed Yes Yes Has compression in place as prescribed Yes Yes Has offloadiing in place as prescribed N/A N/A Experienced any changes in pain level or No No management Left Footwear Regular Shoe Right Footwear Regular Shoe Pain Scale: 0-10 Numeric Is Patient Pain Free? No Yes RLE -Description -Intensity -Pain Behavior -Pain Aggravating Factors -Alleviating Factors/Interventions -Effectiveness of Alleviating Factor/ Intervention WC - Nurse 1 - General Ulcer Measurement Start: 01/16/24 15:16 Freq: Status: Active Protocol: Activity Type Activity Date Activity User E-sign Co-sign Detail Recorded Client Recorded Date Recorded By Document 01/16/24 15:17 RB Desktop 01/16/24 15:19 RB Document 01/23/24 14:14 DL Desktop 01/23/24 14:23 DL Document 01/25/24 10:37 DL Desktop 01/25/24 10:52 DL Document 01/30/24 14:49 KW [id number] 01/30/24 14:56 KW 01/16/24 01/23/24 01/25/24 15:17 14:14 10:37 Wound Center Nurse 1 #1 R post LE- post-op cluster -Combined with other wound No -Current Size (cm) - Length 2.8 2.2 -Current Size (cm) - Width 1.5 1.5 -Current Size (cm) - Depth 0.5 0.9 -Total Square Cm 4.20 3.30 -Photo Taken Yes -Tunneling No -Undermining/Tunneling No -Circular Undermining No -Exudate Amt Large Medium None Present -Exudate Type Serosanguineous Serosanguineous -Wound Margin Thickened & Distinct, Rolled Under Outline Attached -Granulation Amt Medium (34-66%) None Present (0 %) -Granulation Quality Pale -Slough/Fibrin Yes -Necrosis Amt Medium (34-66%) Large (67-100%) -Necrotic Tissue Type Adherent Slough Adherent Slough -Structure Exposed N/A N/A -Texture (Rachele-wound Skin Appearance) Assessed Scarring,Rash Scarring -Moisture (Rachele-wound Skin Appearance) Assessed Maceration No Abnormality -Color (Rachele-wound Skin Appearance) Erythema No Abnormality No Abnormality -Temperature (Rachele-wound Skin No Abnormality No Abnormality No Abnormality Appearance) (Pt Warm) (Pt Warm) (Pt Warm) -Tenderness on Palpation (Rachele-wound No No Skin Appearance) -Ulcer Cleansing Wound Cleanser Soap and Water Soap and Water -Foul Odor after Cleansing No No No -Anesthetic Used 5% Lidocaine 5% Lidocaine Gel Gel -Wound Comment(s) Epicord intact Lower Limb Edema Present Yes Right Calf (cm) 72 65 Right Ankle (cm) 34 31.2 01/30/24 14:49 Wound Center Nurse 1 #1 R post LE- post-op cluster -Combined with other wound -Current Size (cm) - Length 2.5 -Current Size (cm) - Width 1 -Current Size (cm) - Depth 0.4 -Total Square Cm 2.5 -Photo Taken -Tunneling -Undermining/Tunneling -Circular Undermining -Exudate Amt Medium -Exudate Type Serosanguineous -Wound Margin Distinct, Outline Attached -Granulation Amt Medium (34-66%) -Granulation Quality Red -Slough/Fibrin -Necrosis Amt Medium (34-66%) -Necrotic Tissue Type Adherent Slough -Structure Exposed -Texture (Rachele-wound Skin Appearance) Assessed -Moisture (Rachele-wound Skin Appearance) Assessed -Color (Rachele-wound Skin Appearance) Assessed, Erythema -Temperature (Rachele-wound Skin No Abnormality Appearance) (Pt Warm) -Tenderness on Palpation (Rachele-wound No Skin Appearance) -Ulcer Cleansing Soap and Water -Foul Odor after Cleansing No -Anesthetic Used 5% Lidocaine Gel -Wound Comment(s) Lower Limb Edema Present Right Calf (cm) 65.5 Right Ankle (cm) 33.5 WC - Nurse 2 - General Ulcer CM Notes Start: 01/16/24 15:16 Freq: Status: Active Protocol: Activity Type Activity Date Activity User E-sign Co-sign Detail Recorded Client Recorded Date Recorded By Document 01/16/24 15:27 JF Laptop 01/16/24 15:32 Document 01/23/24 14:44 Laptop 01/23/24 14:52 Document 01/30/24 15:18 DS [id number] 01/30/24 15:24 DS 01/16/24 01/23/24 01/30/24 15:27 14:44 15:18 Wound Center Nurse 2 #1 R post LE- post-op cluster -Time 15:28 14:45 15:19 -Correct Patient Yes Yes Yes -Correct Side, Site, Position Yes Yes Yes -Correct Procedure Yes Yes Yes -Procedure Performed Yes Yes Yes -Type of Procedure Debridement Debridement Debridement -Clinical Debridement Subcutaneous Subcutaneous Subcutaneous -Tissue Removed Subcutaneous Subcutaneous Subcutaneous -Post Debridement (cm) - Length 2.6 2.1 2.3 -Post Debridement (cm) - Width 1.5 2.0 1.4 -Post Debridement (cm) - Depth 0.9 0.7 0.5 -Total Square (Post) (cm) 3.90 4.20 3.22 -Area of Debridement (cm) - Length 2.6 2.1 2.8 -Area of Debridement (cm) - Width 1.5 2.0 1.4 -Total Square (Area) (cm) 3.90 4.20 3.92 -Tunneling No No -Undermining/Tunneling No No No -Circular Undermining No No No -Wound/Ulcer Outcome Not Healed Not Healed Not Healed -Ulcer Cleansing Rinsed/ Rinsed/ Rinsed/ Irrigated with Irrigated with Irrigated with Saline Saline Saline -Foul Odor after Cleansing No No -Bioengineered Tissue No Yes Yes -Type of Bioengineered Tissue Epicord Epicord -Expiration Date 02/16/28 09/17/28 -Product Lot Number [id number] -Percent Used 100 100 -Lot number of Saline Used [id number] -Bleeding Controlled with Pressure Pressure Pressure -Treatment Response Procedure Procedure Procedure Tolerated Well Tolerated Well Tolerated Well -Offloading No No -Debridement - Subq, 1st 20sq cm Yes No No -Apply Skin Sub - 1st 25 sq cm - Legs 1 -Epicord (per sq cm) 6 6 Pain Scale: 0-10 Numeric Is Patient Pain Free? Yes Yes Yes WC - Nurse 3 - General Ulcer D/C NN Start: 01/16/24 15:16 Freq: Status: Active Protocol: Activity Type Activity Date Activity User E-sign Co-sign Detail Recorded Client Recorded Date Recorded By Document 01/16/24 15:43 KW Desktop 01/16/24 15:45 KW Document 01/18/24 10:47 DS Desktop 01/18/24 11:06 DS Document 01/23/24 14:55 DL Desktop 01/23/24 14:56 DL Document 01/25/24 10:52 DL Desktop 01/25/24 10:53 DL Document 01/30/24 15:33 KW [id number] 01/30/24 15:34 KW 01/16/24 01/18/24 01/23/24 15:43 10:47 14:55 Wound Care Center Nurse 3 #1 R post LE- post-op cluster -Ulcer Cleansing Soap and Water -Foul Odor after Cleansing No -Primary Dressing Applied Optilok 6.5x10, Optilok 6.5x10, Promogran Promogran Hannah Matter Hannah Matter -Other Dressing Epicord -Primary Dressing Covered/Secured with Dry Gauze & Roll Gauze, Secured with Tape -Optilok 6.5x10 1 1 -Promogran Hannah Matter 1 1 Right -Multi-Layered Wrap Application Multi-Layer Multi-Layer Multi-Layer Comp - Right ($ Comp - Right ($ Comp - Right ($ ) ) ) Treatment Response Vital Signs Temperature (97.8 F-99.1 F) 97.4 F L Temperature Source Temporal Pulse Rate (60-100) 111 H Pulse Location Monitor Blood Pressure (90/60-120/80) 147/84 H Blood Pressure Mean (mm Hg) 105 Source Monitor Position Sitting Pain Scale: 0-10 Numeric Is Patient Pain Free? Yes No Yes RLE -Description Aching -Intensity 9 -Pain Behavior No Change in Behavior -Alleviating Factors/Interventions Will continue to monitor, Patient denies need for intervention, Emotional Support WC - Visit Discharge Discharge Condition Stable Stable Stable Ambulatory Status Ambulatory Ambulatory Ambulatory Transportation Private Auto Private Auto Private Auto Medication Reconcilliation completed & No No provided to patient/care provider Clinical Summary of Care Provided Yes Yes Notes: Facility Type Orders Sent 01/25/24 01/30/24 10:52 15:33 Wound Care Center Nurse 3 #1 R post LE- post-op cluster -Ulcer Cleansing Soap and Water Soap and Water -Foul Odor after Cleansing No No -Primary Dressing Applied Optilok 6.5x10 -Other Dressing Epicord ePICORD -Primary Dressing Covered/Secured with Dry Gauze Dry Gauze & Roll Gauze, Secured with Tape -Optilok 6.5x10 1 -Promogran Hannah Matter Right -Multi-Layered Wrap Application Multi-Layer Multi-Layer Comp - Right ($ Comp - Right ($ ) ) Treatment Response Procedure Tolerated Well Vital Signs Temperature (97.8 F-99.1 F) Temperature Source Pulse Rate (60-100) Pulse Location Blood Pressure (90/60-120/80) Blood Pressure Mean (mm Hg) Source Position Pain Scale: 0-10 Numeric Is Patient Pain Free? Yes Yes RLE -Description -Intensity -Pain Behavior -Alleviating Factors/Interventions WC - Visit Discharge Discharge Condition Stable Stable Ambulatory Status Ambulatory Ambulatory, Walker Transportation Private Auto Private Auto Medication Reconcilliation completed & provided to patient/care provider Clinical Summary of Care Provided Notes: DRESSING APPLIED PER [facility] Facility Type Home Health Orders Sent Yes Assessment/Plan Assessment/Plan (1) Non-pressure chronic ulcer of unspecified part of 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 All findings were discussed with the patient. All questions were answered to the patient's satisfaction. Excisional debridement down to and including subcutaneous tissue with a number 3 mm dermal curette to the right posterior calf. Predebridement measurement was 2.2 x 1.3 x 0.3 cm. Postdebridement measurement is 2.3 x 1.4 x 0.5 cm. EpiCord 2.0 x 3.0 cm graft was applied to the right posterior calf full- thickness ulceration with 100% use. Second application. The graft site was free and clear of any infection. The wound/skin graft substitute was dressed with nonadherent bandage secured in place with Steri-Strips followed by bolster dressing as well as a multilayer 3M compression bandage down to the right lower extremity. Educated the patient to continue strict blood sugar control. Patient was told that she needs to have a range of monitor blood sugar between 100 to 150 mg/dL. She was understanding of this. Follow-up at the wound care center with Dr. Lord in 1 week. (2) Acute painful diabetic polyneuropathy: CODE(S): E11.42 - Type 2 diabetes mellitus with diabetic polyneuropathy
[2024-02-01 10:33] VITALS: BP 184/94; PULSE 116; RESP 18; TEMP 36.2; BMI 62.5
[2024-02-06 14:23] VITALS: BP 158/69; PULSE 109; RESP 22; TEMP 36.9; BMI 62.5
--- NOTE | 2024-02-06 15:56 | PN.PCM_ITS ---
History of Present Illness Date of Service: 02/06/24 Chief Complaint: Ulceration right posterior leg History of Wound: Ulceration right posterior leg Subjective Subjective Mrs. Rodriguez is a 43-year-old diabetic female resenting to the wound care center today for follow-up evaluation of posterior right calf ulceration. Patient has left her multilayer compression bandage clean dry and intact. She has had strict blood sugar control. However she does states she had a mild elevation and is unsure why this morning. Patient also has evidence of a boil to the distal right leg. She denies trauma. Denies constitutional symptoms. No other pedal complaints at this time. Objective Data Objective Data Vital Signs: Vital Signs Temp Pulse Resp BP O2 Del Method 98.4 F 109 H 22 H 158/69 H Room Air 02/06/24 14:23 02/06/24 14:23 02/06/24 14:23 02/06/24 14:02/01/24 10:33 Oxygen Delivery Method Room Air Weight: 160.223 kg Body Mass Index (BMI) 62.5 Physical Exam Narrative Vascular: DP and PT pulses palpable. CFT is brisk. Nonpitting edema appreciated to right lower extremity. No erythema or proximal streaking is appreciated. Neurological: Light touch intact. Patient response to painful stimuli. Dermatological: Evidence of surgical wound dehiscence secondary to nonweightbearing and lack of medical compliance. Full-thickness ulceration measures 2.4 x 1.2 x 0.4 cm. Wound base is granular nature with sanguinous drainage after debridement. No evidence of erythema or proximal streaking. Evidence of a boil to the distal aspect anterior right leg. Excisional debridement down to and including subcutaneous tissue with a number 3 mm dermal curette to the right posterior calf. Predebridement measurement was 2.3 x 1.2 x 0.3 cm. Postdebridement measurement is 2.4 x 1.2 x 0.4 cm. EpiCord 2.0 x 3.0 cm graft was applied to the right posterior calf full- thickness ulceration with 100% use. Third application. The graft site was free and clear of any infection. The wound/skin graft substitute was dressed with nonadherent bandage secured in place with Steri-Strips followed by bolster dressing as well as a multilayer 3M compression bandage down to the right lower extremity. Musculoskeletal: No pain with calf compression. Mild pain to palpation full- thickness ulceration right calf. Palpable bogginess and flocculence appreciated to the anterior ankle of the right lower extremity at the level of the boil. Debridement Note Debridement Note Debridement Free Text: Excisional debridement down to and including subcutaneous tissue with a number 3 mm dermal curette to the right posterior calf. Predebridement measurement was 2.3 x 1.2 x 0.3 cm. Postdebridement measurement is 2.4 x 1.2 x 0.4 cm. EpiCord 2.0 x 3.0 cm graft was applied to the right posterior calf full- thickness ulceration with 100% use. Third application. The graft site was free and clear of any infection. The wound/skin graft substitute was dressed with nonadherent bandage secured in place with Steri-Strips followed by bolster dressing as well as a multilayer 3M compression bandage down to the right lower extremity. Post-Debridement Measurements and Additional Note: Post-Debridement Measurements/Treatment - Nurse 1 - General Ulcer Assessment Start: 01/16/24 15:16 Freq: Status: Active Protocol: WATSON Activity Type Activity Date Activity User E-sign Co-sign Detail Recorded Client Recorded Date Recorded By Document 01/16/24 15:17 RB Desktop 01/16/24 15:19 RB Document 01/18/24 10:47 DS Desktop 01/18/24 11:06 DS Document 01/23/24 14:14 DL Desktop 01/23/24 14:23 DL Document 01/25/24 10:37 DL Desktop 01/25/24 10:52 DL Document 01/30/24 14:49 KW [id number] 01/30/24 14:56 KW Document 02/01/24 10:33 KW wound center 02/01/24 10:48 KW Document 02/06/24 14:23 DL [id number] 02/06/24 14:25 DL 01/16/24 01/18/24 01/23/24 15:17 10:47 14:14 - Today's Visit Information Type of service Follow-up Visit Nurse-only Follow-up Visit (Physician/TUMBLER DRIER OPERATOR Visit (Physician/TUMBLER DRIER OPERATOR ) ) Arrival Mode Ambulatory Ambulatory Ambulatory Transfer Assistance None None Patient Identification Verified (Name & Yes Yes Yes ) Patient Requires Transmission-Based No No Precautions Safety Precautions NA Finger Stick Blood Sugar(mg/dl) (if indicated): Blood Sugar Height and Weight Body Mass Index (BMI) 62.5 62.5 62.5 BMI Classification Obese Obese Obese Vital Signs Temperature (97.8 F-99.1 F) 98.3 F 97.4 F L 98.2 F Temperature Source Temporal Temporal Temporal Pulse Rate (60-100) 108 H 111 H 115 H Pulse Location Monitor Monitor Monitor Respiratory Rate (12-18) 18 24 H Respiratory rate source Observation Observation Oxygen Delivery Method Blood Pressure (90/60-120/80) 108/57 L 147/84 H 168/91 H Blood Pressure Mean (mm Hg) 74 105 116 Source Monitor Monitor Monitor Position Semi-Fowlers Sitting Blood Pressure Location Right Arm History Since Last Visit- (Skip if this is Patient's initial visit) Have you changed medications since your No No last visit? Any new allergies or adverse reactions No No Had a fall/change in ADL's that may No No increase risk of falls Signs or symptoms of abuse and/or No No neglect since last visit Have you been in the hospital since your No No last visit? Has dressing in place as prescribed Yes Yes Has compression in place as prescribed Yes Yes Has offloadiing in place as prescribed No Yes Experienced any changes in pain level or No No management Left Footwear Slipper Right Footwear Slipper Pain Scale: 0-10 Numeric Is Patient Pain Free? No No Yes RLE -Description Cramping Aching -Intensity 8 9 -Pain Behavior Withdrawal from No Change in Touch Behavior -Pain Aggravating Factors Walking -Alleviating Factors/Interventions Medication Will continue to monitor, Patient denies need for intervention, Emotional Support -Effectiveness of Alleviating Factor/ Minimally Intervention effective 01/25/24 01/30/24 02/01/24 10:37 14:49 10:33 WC - Today's Visit Information Type of service Nurse-only Follow-up Visit Nurse-only Visit (Physician/TUMBLER DRIER OPERATOR Visit ) Arrival Mode Ambulatory Ambulatory Ambulatory Transfer Assistance None Patient Identification Verified (Name & Yes Yes Yes ) Patient Requires Transmission-Based No Precautions Safety Precautions Finger Stick Blood Sugar(mg/dl) (if indicated): Blood Sugar Height and Weight Body Mass Index (BMI) 62.5 62.5 62.5 BMI Classification Obese Obese Obese Vital Signs Temperature (97.8 F-99.1 F) 97.4 F L 96.5 F L 97.1 F L Temperature Source Temporal Temporal Temporal Pulse Rate (60-100) 115 H 116 H Pulse Location Monitor Monitor Monitor Respiratory Rate (12-18) 18 18 18 Respiratory rate source Observation Observation Observation Oxygen Delivery Method Room Air Room Air Blood Pressure (90/60-120/80) 166/88 H 184/94 H Blood Pressure Mean (mm Hg) 114 124 Source Monitor Monitor Monitor Position Sitting Sitting Blood Pressure Location Left Forearm Left Forearm History Since Last Visit- (Skip if this is Patient's initial visit) Have you changed medications since your No No No last visit? Any new allergies or adverse reactions No No No Had a fall/change in ADL's that may No No No increase risk of falls Signs or symptoms of abuse and/or No No No neglect since last visit Have you been in the hospital since your No No No last visit? Has dressing in place as prescribed Yes Yes Yes Has compression in place as prescribed Yes Yes Yes Has offloadiing in place as prescribed N/A N/A N/A Experienced any changes in pain level or No No No management Left Footwear Regular Shoe Regular Shoe Right Footwear Regular Shoe Regular Shoe Pain Scale: 0-10 Numeric Is Patient Pain Free? No Yes Yes RLE -Description -Intensity -Pain Behavior -Pain Aggravating Factors -Alleviating Factors/Interventions -Effectiveness of Alleviating Factor/ Intervention 02/06/24 14:23 WC - Today's Visit Information Type of service Follow-up Visit (Physician/TUMBLER DRIER OPERATOR ) Arrival Mode Ambulatory Transfer Assistance None Patient Identification Verified (Name & Yes ) Patient Requires Transmission-Based No Precautions Safety Precautions Finger Stick Blood Sugar(mg/dl) (if 202 indicated): Blood Sugar Stated by Patient Height and Weight Body Mass Index (BMI) 62.5 BMI Classification Obese Vital Signs Temperature (97.8 F-99.1 F) 98.4 F Temperature Source Temporal Pulse Rate (60-100) 109 H Pulse Location Monitor Respiratory Rate (12-18) 22 H Respiratory rate source Observation Oxygen Delivery Method Blood Pressure (90/60-120/80) 158/69 H Blood Pressure Mean (mm Hg) 98 Source Monitor Position Blood Pressure Location History Since Last Visit- (Skip if this is Patient's initial visit) Have you changed medications since your No last visit? Any new allergies or adverse reactions No Had a fall/change in ADL's that may No increase risk of falls Signs or symptoms of abuse and/or No neglect since last visit Have you been in the hospital since your No last visit? Has dressing in place as prescribed Yes Has compression in place as prescribed Yes Has offloadiing in place as prescribed N/A Experienced any changes in pain level or No management Left Footwear Right Footwear Pain Scale: 0-10 Numeric Is Patient Pain Free? Yes RLE -Description -Intensity -Pain Behavior -Pain Aggravating Factors -Alleviating Factors/Interventions -Effectiveness of Alleviating Factor/ Intervention WC - Nurse 1 - General Ulcer Measurement Start: 01/16/24 15:16 Freq: Status: Active Protocol: Activity Type Activity Date Activity User E-sign Co-sign Detail Recorded Client Recorded Date Recorded By Document 01/16/24 15:17 RB Desktop 01/16/24 15:19 RB Document 01/23/24 14:14 DL Desktop 01/23/24 14:23 DL Document 01/25/24 10:37 DL Desktop 01/25/24 10:52 DL Document 01/30/24 14:49 KW [id number] 01/30/24 14:56 KW Document 02/06/24 14:23 DL [id number] 02/06/24 14:25 DL 01/16/24 01/23/24 01/25/24 15:17 14:14 10:37 Wound Center Nurse 1 #1 R post LE- post-op cluster -Combined with other wound No -Current Size (cm) - Length 2.8 2.2 -Current Size (cm) - Width 1.5 1.5 -Current Size (cm) - Depth 0.5 0.9 -Total Square Cm 4.20 3.30 -Photo Taken Yes -Tunneling No -Undermining/Tunneling No -Circular Undermining No -Exudate Amt Large Medium None Present -Exudate Type Serosanguineous Serosanguineous -Wound Margin Thickened & Distinct, Rolled Under Outline Attached -Granulation Amt Medium (34-66%) None Present (0 %) -Granulation Quality Pale -Slough/Fibrin Yes -Necrosis Amt Medium (34-66%) Large (67-100%) -Necrotic Tissue Type Adherent Slough Adherent Slough -Structure Exposed N/A N/A -Texture (Rachele-wound Skin Appearance) Assessed Scarring,Rash Scarring -Moisture (Rachele-wound Skin Appearance) Assessed Maceration No Abnormality -Color (Rachele-wound Skin Appearance) Erythema No Abnormality No Abnormality -Temperature (Rachele-wound Skin No Abnormality No Abnormality No Abnormality Appearance) (Pt Warm) (Pt Warm) (Pt Warm) -Tenderness on Palpation (Rachele-wound No No Skin Appearance) -Ulcer Cleansing Wound Cleanser Soap and Water Soap and Water -Foul Odor after Cleansing No No No -Anesthetic Used 5% Lidocaine 5% Lidocaine Gel Gel -Wound Comment(s) Epicord intact Lower Limb Edema Present Yes Right Calf (cm) 72 65 Right Ankle (cm) 34 31.2 01/30/24 02/06/24 14:49 14:23 Wound Center Nurse 1 #1 R post LE- post-op cluster -Combined with other wound -Current Size (cm) - Length 2.5 1.8 -Current Size (cm) - Width 1 1 -Current Size (cm) - Depth 0.4 0.3 -Total Square Cm 2.5 1.8 -Photo Taken -Tunneling -Undermining/Tunneling -Circular Undermining -Exudate Amt Medium Medium -Exudate Type Serosanguineous Serosanguineous -Wound Margin Distinct, Distinct, Outline Outline Attached Attached -Granulation Amt Medium (34-66%) Medium (34-66%) -Granulation Quality Red Red -Slough/Fibrin -Necrosis Amt Medium (34-66%) Medium (34-66%) -Necrotic Tissue Type Adherent Slough Adherent Slough -Structure Exposed N/A -Texture (Rachele-wound Skin Appearance) Assessed Callus,Scarring -Moisture (Rachele-wound Skin Appearance) Assessed Maceration -Color (Rachele-wound Skin Appearance) Assessed, No Abnormality Erythema -Temperature (Rachele-wound Skin No Abnormality No Abnormality Appearance) (Pt Warm) (Pt Warm) -Tenderness on Palpation (Rachele-wound No No Skin Appearance) -Ulcer Cleansing Soap and Water Soap and Water -Foul Odor after Cleansing No No -Anesthetic Used 5% Lidocaine 5% Lidocaine Gel Gel -Wound Comment(s) Lower Limb Edema Present Right Calf (cm) 65.5 63 Right Ankle (cm) 33.5 30 WC - Nurse 2 - General Ulcer CM Notes Start: 01/16/24 15:16 Freq: Status: Active Protocol: Activity Type Activity Date Activity User E-sign Co-sign Detail Recorded Client Recorded Date Recorded By Document 01/16/24 15:27 JF Laptop 01/16/24 15:32 JF Document 01/23/24 14:44 JF Laptop 01/23/24 14:52 JF Document 01/30/24 15:18 DS [id number] 01/30/24 15:24 DS Edit Result 01/30/24 15:18 DS (1) [id number] 02/01/24 09:30 DS Document 02/06/24 14:44 JF [id number] 02/06/24 14:49 JF (1) #1 R post LE- post-op cluster - Apply Skin Sub - 1st 25 sq cm - Legs => 1 01/16/24 01/23/24 01/30/24 15:27 14:44 15:18 Wound Center Nurse 2 #1 R post LE- post-op cluster -Time 15:28 14:45 15:19 -Correct Patient Yes Yes Yes -Correct Side, Site, Position Yes Yes Yes -Correct Procedure Yes Yes Yes -Procedure Performed Yes Yes Yes -Type of Procedure Debridement Debridement Debridement -Clinical Debridement Subcutaneous Subcutaneous Subcutaneous -Tissue Removed Subcutaneous Subcutaneous Subcutaneous -Post Debridement (cm) - Length 2.6 2.1 2.3 -Post Debridement (cm) - Width 1.5 2.0 1.4 -Post Debridement (cm) - Depth 0.9 0.7 0.5 -Total Square (Post) (cm) 3.90 4.20 3.22 -Area of Debridement (cm) - Length 2.6 2.1 2.8 -Area of Debridement (cm) - Width 1.5 2.0 1.4 -Total Square (Area) (cm) 3.90 4.20 3.92 -Tunneling No No -Undermining/Tunneling No No No -Circular Undermining No No No -Wound/Ulcer Outcome Not Healed Not Healed Not Healed -Ulcer Cleansing Rinsed/ Rinsed/ Rinsed/ Irrigated with Irrigated with Irrigated with Saline Saline Saline -Foul Odor after Cleansing No No -Bioengineered Tissue No Yes Yes -Type of Bioengineered Tissue Epicord Epicord -Expiration Date 02/16/28 09/17/28 -Product Lot Number [id number] -Percent Used 100 100 -Lot number of Saline Used [id number] -Bleeding Controlled with Pressure Pressure Pressure -Treatment Response Procedure Procedure Procedure Tolerated Well Tolerated Well Tolerated Well -Offloading No No -Debridement - Subq, 1st 20sq cm Yes No No -Apply Skin Sub - 1st 25 sq cm - Legs 1 1 -Epicord (per sq cm) 6 6 Pain Scale: 0-10 Numeric Is Patient Pain Free? Yes Yes Yes 02/06/24 14:44 Wound Center Nurse 2 #1 R post LE- post-op cluster -Time 14:44 -Correct Patient Yes -Correct Side, Site, Position Yes -Correct Procedure Yes -Procedure Performed Yes -Type of Procedure Debridement -Clinical Debridement Subcutaneous -Tissue Removed Subcutaneous -Post Debridement (cm) - Length 2.4 -Post Debridement (cm) - Width 1.2 -Post Debridement (cm) - Depth 0.4 -Total Square (Post) (cm) 2.88 -Area of Debridement (cm) - Length 2.4 -Area of Debridement (cm) - Width 1.2 -Total Square (Area) (cm) 2.88 -Tunneling No -Undermining/Tunneling No -Circular Undermining No -Wound/Ulcer Outcome Not Healed -Ulcer Cleansing Rinsed/ Irrigated with Saline -Foul Odor after Cleansing No -Bioengineered Tissue Yes -Type of Bioengineered Tissue Epicord -Expiration Date 09/17/28 -Product Lot Number [id number] -Percent Used 100 -Lot number of Saline Used [id number] -Bleeding Controlled with Pressure -Treatment Response Procedure Tolerated Well -Offloading No -Debridement - Subq, 1st 20sq cm No -Apply Skin Sub - 1st 25 sq cm - Legs 1 -Epicord (per sq cm) 6 Pain Scale: 0-10 Numeric Is Patient Pain Free? Yes - Nurse 3 - General Ulcer D/C NN Start: 01/16/24 15:16 Freq: Status: Active Protocol: Activity Type Activity Date Activity User E-sign Co-sign Detail Recorded Client Recorded Date Recorded By Document 01/16/24 15:43 KW Desktop 01/16/24 15:45 KW Document 01/18/24 10:47 DS Desktop 01/18/24 11:06 DS Document 01/23/24 14:55 DL Desktop 01/23/24 14:56 DL Document 01/25/24 10:52 DL Desktop 01/25/24 10:53 DL Document 01/30/24 15:33 KW [id number] 01/30/24 15:34 KW Document 02/01/24 10:33 KW wound center 02/01/24 10:48 KW Document 02/06/24 14:54 KW wound center 02/06/24 14:55 KW 01/16/24 01/18/24 01/23/24 15:43 10:47 14:55 Wound Care Center Nurse 3 #1 R post LE- post-op cluster -Ulcer Cleansing Soap and Water -Foul Odor after Cleansing No -Primary Dressing Applied Optilok 6.5x10, Optilok 6.5x10, Promogran Promogran Hannah Matter Hannah Matter -Other Dressing Epicord -Primary Dressing Covered/Secured with Dry Gauze & Roll Gauze, Secured with Tape -Optilok 6.5x10 1 1 -Promogran Hannah Matter 1 1 Right -Multi-Layered Wrap Application Multi-Layer Multi-Layer Multi-Layer Comp - Right ($ Comp - Right ($ Comp - Right ($ ) ) ) Treatment Response Vital Signs Temperature (97.8 F-99.1 F) 97.4 F L Temperature Source Temporal Pulse Rate (60-100) 111 H Pulse Location Monitor Respiratory Rate (12-18) Respiratory rate source Oxygen Delivery Method Blood Pressure (90/60-120/80) 147/84 H Blood Pressure Mean (mm Hg) 105 Source Monitor Position Sitting Blood Pressure Location Pain Scale: 0-10 Numeric Is Patient Pain Free? Yes No Yes RLE -Description Aching -Intensity 9 -Pain Behavior No Change in Behavior -Alleviating Factors/Interventions Will continue to monitor, Patient denies need for intervention, Emotional Support WC - Visit Discharge Discharge Condition Stable Stable Stable Ambulatory Status Ambulatory Ambulatory Ambulatory Transportation Private Auto Private Auto Private Auto Medication Reconcilliation completed & No No provided to patient/care provider Clinical Summary of Care Provided Yes Yes Notes: Facility Type Orders Sent 01/25/24 01/30/24 02/01/24 10:52 15:33 10:33 Wound Care Center Nurse 3 #1 R post LE- post-op cluster -Ulcer Cleansing Soap and Water Soap and Water Soap and Water -Foul Odor after Cleansing No No -Primary Dressing Applied Optilok 6.5x10 Optilok 6.5x10 -Other Dressing Epicord ePICORD -Primary Dressing Covered/Secured with Dry Gauze Dry Gauze & Dry Gauze & Roll Gauze, Roll Gauze, Secured with Secured with Tape Tape -Optilok 6.5x10 1 1 -Promogran Hannah Matter Right -Multi-Layered Wrap Application Multi-Layer Multi-Layer Multi-Layer Comp - Right ($ Comp - Right ($ Comp - Right ($ ) ) ) Treatment Response Procedure Tolerated Well Vital Signs Temperature (97.8 F-99.1 F) 97.1 F L Temperature Source Temporal Pulse Rate (60-100) 116 H Pulse Location Monitor Respiratory Rate (12-18) 18 Respiratory rate source Observation Oxygen Delivery Method Room Air Blood Pressure (90/60-120/80) 184/94 H Blood Pressure Mean (mm Hg) 124 Source Monitor Position Sitting Blood Pressure Location Left Forearm Pain Scale: 0-10 Numeric Is Patient Pain Free? Yes Yes Yes RLE -Description -Intensity -Pain Behavior -Alleviating Factors/Interventions WC - Visit Discharge Discharge Condition Stable Stable Ambulatory Status Ambulatory Ambulatory, Walker Transportation Private Auto Private Auto Medication Reconcilliation completed & provided to patient/care provider Clinical Summary of Care Provided Notes: DRESSING APPLIED PER [facility] Facility Type Home Health Orders Sent Yes 02/06/24 14:54 Wound Care Center Nurse 3 #1 R post LE- post-op cluster -Ulcer Cleansing -Foul Odor after Cleansing -Primary Dressing Applied -Other Dressing -Primary Dressing Covered/Secured with Dry Gauze & Roll Gauze, Secured with Tape -Optilok 6.5x10 -Promogran Hannah Matter Right -Multi-Layered Wrap Application Multi-Layer Comp - Right ($ ) Treatment Response Vital Signs Temperature (97.8 F-99.1 F) Temperature Source Pulse Rate (60-100) Pulse Location Respiratory Rate (12-18) Respiratory rate source Oxygen Delivery Method Blood Pressure (90/60-120/80) Blood Pressure Mean (mm Hg) Source Position Blood Pressure Location Pain Scale: 0-10 Numeric Is Patient Pain Free? Yes RLE -Description -Intensity -Pain Behavior -Alleviating Factors/Interventions WC - Visit Discharge Discharge Condition Stable Ambulatory Status Ambulatory Transportation Private Auto Medication Reconcilliation completed & No provided to patient/care provider Clinical Summary of Care Provided Yes Notes: Facility Type Orders Sent Assessment/Plan Assessment/Plan (1) Non-pressure chronic ulcer of unspecified part of 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 All findings were discussed with the patient. All questions were answered to the patient's satisfaction. Excisional debridement down to and including subcutaneous tissue with a number 3 mm dermal curette to the right posterior calf. Predebridement measurement was 2.3 x 1.2 x 0.3 cm. Postdebridement measurement is 2.4 x 1.2 x 0.4 cm. EpiCord 2.0 x 3.0 cm graft was applied to the right posterior calf full- thickness ulceration with 100% use. Third application. The graft site was free and clear of any infection. The wound/skin graft substitute was dressed with nonadherent bandage secured in place with Steri-Strips followed by bolster dressing as well as a multilayer 3M compression bandage down to the right lower extremity. Next attention was directed to the right lower extremity ankle at the level of the boil. The right lower extremity was prepped and draped in normal sterile manner. Using a pickup and 15 blade the boil was lanced and drained with culture taken. Triple antibiotic and Band-Aid was applied. Patient will be placed on antibiotics when culture and sensitivity returns for microbiology. Follow-up at the wound care center with Dr. Lord in 1 week. (2) Lymphedema, not elsewhere classified: CODE(S): I89.0 - Lymphedema, not elsewhere classified (3) Subcutaneous abscess: CODE(S): L02.91 - Cutaneous abscess, unspecified QUALIFIERS: Site of cutaneous abscess: extremity Site of cutaneous abscess of extremity: lower extremity Laterality: right Qualified Code(s): L02.415 - Cutaneous abscess of right lower limb
[2024-02-08 10:42] VITALS: BP 132/77; PULSE 108; RESP 18; TEMP 36.6; BMI 62.5
[2024-02-13 14:37] VITALS: BP 168/88; PULSE 107; RESP 22; TEMP 36.1; BMI 62.5
--- NOTE | 2024-02-13 16:50 | PCM.WC.PN ---
History of Present Illness Date of Service: 02/13/24 Chief Complaint: Ulceration right posterior leg History of Wound: Ulceration right posterior leg Subjective Subjective Mrs. Rodriguez is a 43-year-old diabetic female resenting to the wound care center today for follow-up evaluation of posterior right calf ulceration. Patient has left her multilayer compression bandage clean dry and intact. She has had strict blood sugar control. She does admit to being seen in the emergency room for generalized weakness over the weekend. Otherwise she is much improved. She denies trauma. Denies constitutional symptoms. No other pedal complaints at this time. Objective Data Objective Data Vital Signs: Vital Signs Temp Pulse Resp BP O2 Del Method 96.9 F L 107 H 22 H 168/88 H Room Air 02/13/24 14:37 02/13/24 14:37 02/13/24 14:37 02/13/24 14:37 02/08/24 10:42 Oxygen Delivery Method Room Air Weight: 160.223 kg Body Mass Index (BMI) 62.5 Lab / Micro Data Micro: Microbiology 02/07/24 14:42 Wound Abcess - Leg, Right Gram Stain - Final 02/07/24 14:42 Wound Abcess - Leg, Right Wound Culture - Final Staphylococcus lugdunensis 02/07/24 14:42 Wound Abcess - Leg, Right Anaerobic Culture - Final No anaerobic bacteria isolated. Physical Exam Narrative Vascular: DP and PT pulses palpable. CFT is brisk. Nonpitting edema appreciated to right lower extremity. No erythema or proximal streaking is appreciated. Neurological: Light touch intact. Patient response to painful stimuli. Dermatological: Evidence of surgical wound dehiscence secondary to nonweightbearing and lack of medical compliance. Full-thickness ulceration measures 2.4 x 1.3 x 0.6 cm. Wound base is granular nature with sanguinous drainage after debridement. No evidence of erythema or proximal streaking. Evidence of a boil to the distal aspect anterior right leg, healed. Excisional debridement down to and including subcutaneous tissue with a number 3 mm dermal curette to the right posterior calf. Predebridement measurement was 2.3 x 1.2 x 0.4 cm. Postdebridement measurement is 2.4 x 1.3 x 0.6 cm. EpiCord 2.0 x 3.0 cm graft was applied to the right posterior calf full-thickness ulceration with 100% use. Fourth application. The graft site was free and clear of any infection. The wound/skin graft substitute was dressed with nonadherent bandage secured in place with Steri-Strips followed by bolster dressing as well as a multilayer 3M compression bandage down to the right lower extremity. Musculoskeletal: No pain with calf compression. Mild pain to palpation full-thickness ulceration right calf. Palpable bogginess and flocculence appreciated to the anterior ankle of the right lower extremity at the level of the boil. Debridement Note Debridement Note Debridement Free Text: Excisional debridement down to and including subcutaneous tissue with a number 3 mm dermal curette to the right posterior calf. Predebridement measurement was 2.3 x 1.2 x 0.4 cm. Postdebridement measurement is 2.4 x 1.3 x 0.6 cm. EpiCord 2.0 x 3.0 cm graft was applied to the right posterior calf full-thickness ulceration with 100% use. Fourth application. The graft site was free and clear of any infection. The wound/skin graft substitute was dressed with nonadherent bandage secured in place with Steri-Strips followed by bolster dressing as well as a multilayer 3M compression bandage down to the right lower extremity. Post-Debridement Measurements and Additional Note: Post-Debridement Measurements/Treatment WC - Nurse 1 - General Ulcer Assessment Start: 01/16/24 15:16 Freq: Status: Active Protocol: WATSON Activity Type Activity Date Activity User E-sign Co-sign Detail Recorded Client Recorded Date Recorded By Document 01/16/24 15:17 RB Desktop 01/16/24 15:19 RB Document 01/18/24 10:47 DS Desktop 01/18/24 11:06 DS Document 01/23/24 14:14 DL Desktop 01/23/24 14:23 DL Document 01/25/24 10:37 DL Desktop 01/25/24 10:52 DL Document 01/30/24 14:49 KW [id number] 01/30/24 14:56 KW Document 02/01/24 10:33 KW wound center 02/01/24 10:48 KW Document 02/06/24 14:23 DL [id number] 02/06/24 14:25 DL Document 02/08/24 10:42 KW wound care 05/24/24 10:57 KW Document 02/13/24 14:37 DL [email or web address] 02/13/24 14:44 DL 01/16/24 01/18/24 01/23/24 15:17 10:47 14:14 - Today's Visit Information Type of service Follow-up Visit Nurse-only Follow-up Visit (Physician/ICE CREAM MACHINE OPERATOR Visit (Physician/ICE CREAM MACHINE OPERATOR ) ) Arrival Mode Ambulatory Ambulatory Ambulatory Transfer Assistance None None Patient Identification Verified (Name & Yes Yes Yes ) Patient Requires Transmission-Based No No Precautions Safety Precautions NA Finger Stick Blood Sugar(mg/dl) (if indicated): Blood Sugar Height and Weight Body Mass Index (BMI) 62.5 62.5 62.5 BMI Classification Obese Obese Obese Vital Signs Temperature (97.8 F-99.1 F) 98.3 F 97.4 F L 98.2 F Temperature Source Temporal Temporal Temporal Pulse Rate (60-100) 108 H 111 H 115 H Pulse Location Monitor Monitor Monitor Respiratory Rate (12-18) 18 24 H Respiratory rate source Observation Observation Oxygen Delivery Method Blood Pressure (90/60-120/80) 108/57 L 147/84 H 168/91 H Blood Pressure Mean (mm Hg) 74 105 116 Source Monitor Monitor Monitor Position Semi-Fowlers Sitting Blood Pressure Location Right Arm History Since Last Visit- (Skip if this is Patient's initial visit) Have you changed medications since your No No last visit? Any new allergies or adverse reactions No No Had a fall/change in ADL's that may No No increase risk of falls Signs or symptoms of abuse and/or No No neglect since last visit Have you been in the hospital since your No No last visit? Has dressing in place as prescribed Yes Yes Has compression in place as prescribed Yes Yes Has offloadiing in place as prescribed No Yes Experienced any changes in pain level or No No management Left Footwear Slipper Right Footwear Slipper Pain Scale: 0-10 Numeric Is Patient Pain Free? No No Yes RLE -Description Cramping Aching -Intensity 8 9 -Pain Behavior Withdrawal from No Change in Touch Behavior -Pain Aggravating Factors Walking -Alleviating Factors/Interventions Medication Will continue to monitor, Patient denies need for intervention, Emotional Support -Effectiveness of Alleviating Factor/ Minimally Intervention effective 01/25/24 01/30/24 02/01/24 10:37 14:49 10:33 - Today's Visit Information Type of service Nurse-only Follow-up Visit Nurse-only Visit (Physician/ICE CREAM MACHINE OPERATOR Visit ) Arrival Mode Ambulatory Ambulatory Ambulatory Transfer Assistance None Patient Identification Verified (Name & Yes Yes Yes ) Patient Requires Transmission-Based No Precautions Safety Precautions Finger Stick Blood Sugar(mg/dl) (if indicated): Blood Sugar Height and Weight Body Mass Index (BMI) 62.5 62.5 62.5 BMI Classification Obese Obese Obese Vital Signs Temperature (97.8 F-99.1 F) 97.4 F L 96.5 F L 97.1 F L Temperature Source Temporal Temporal Temporal Pulse Rate (60-100) 115 H 116 H Pulse Location Monitor Monitor Monitor Respiratory Rate (12-18) 18 18 18 Respiratory rate source Observation Observation Observation Oxygen Delivery Method Room Air Room Air Blood Pressure (90/60-120/80) 166/88 H 184/94 H Blood Pressure Mean (mm Hg) 114 124 Source Monitor Monitor Monitor Position Sitting Sitting Blood Pressure Location Left Forearm Left Forearm History Since Last Visit- (Skip if this is Patient's initial visit) Have you changed medications since your No No No last visit? Any new allergies or adverse reactions No No No Had a fall/change in ADL's that may No No No increase risk of falls Signs or symptoms of abuse and/or No No No neglect since last visit Have you been in the hospital since your No No No last visit? Has dressing in place as prescribed Yes Yes Yes Has compression in place as prescribed Yes Yes Yes Has offloadiing in place as prescribed N/A N/A N/A Experienced any changes in pain level or No No No management Left Footwear Regular Shoe Regular Shoe Right Footwear Regular Shoe Regular Shoe Pain Scale: 0-10 Numeric Is Patient Pain Free? No Yes Yes RLE -Description -Intensity -Pain Behavior -Pain Aggravating Factors -Alleviating Factors/Interventions -Effectiveness of Alleviating Factor/ Intervention 02/06/24 02/08/24 02/13/24 14:23 10:42 14:37 - Today's Visit Information Type of service Follow-up Visit Nurse-only Follow-up Visit (Physician/ICE CREAM MACHINE OPERATOR Visit (Physician/ICE CREAM MACHINE OPERATOR ) ) Arrival Mode Ambulatory Ambulatory Ambulatory Transfer Assistance None None Patient Identification Verified (Name & Yes Yes Yes ) Patient Requires Transmission-Based No No Precautions Safety Precautions Finger Stick Blood Sugar(mg/dl) (if 202 162 indicated): Blood Sugar Stated by Stated by Patient Patient Height and Weight Body Mass Index (BMI) 62.5 62.5 62.5 BMI Classification Obese Obese Obese Vital Signs Temperature (97.8 F-99.1 F) 98.4 F 97.8 F 96.9 F L Temperature Source Temporal Temporal Temporal Pulse Rate (60-100) 109 H 108 H 107 H Pulse Location Monitor Monitor Monitor Respiratory Rate (12-18) 22 H 18 22 H Respiratory rate source Observation Observation Ventilator Oxygen Delivery Method Room Air Blood Pressure (90/60-120/80) 158/69 H 132/77 H 168/88 H Blood Pressure Mean (mm Hg) 98 95 114 Source Monitor Monitor Monitor Position Sitting Blood Pressure Location Left Arm History Since Last Visit- (Skip if this is Patient's initial visit) Have you changed medications since your No No No last visit? Any new allergies or adverse reactions No No No Had a fall/change in ADL's that may No No No increase risk of falls Signs or symptoms of abuse and/or No No No neglect since last visit Have you been in the hospital since your No No No last visit? Has dressing in place as prescribed Yes Yes Yes Has compression in place as prescribed Yes Yes Yes Has offloadiing in place as prescribed N/A N/A Yes Experienced any changes in pain level or No No No management Left Footwear Slipper Right Footwear Slipper Pain Scale: 0-10 Numeric Is Patient Pain Free? Yes Yes Yes RLE -Description -Intensity -Pain Behavior -Pain Aggravating Factors -Alleviating Factors/Interventions -Effectiveness of Alleviating Factor/ Intervention WC - Nurse 1 - General Ulcer Measurement Start: 01/16/24 15:16 Freq: Status: Active Protocol: Activity Type Activity Date Activity User E-sign Co-sign Detail Recorded Client Recorded Date Recorded By Document 01/16/24 15:17 RB Desktop 01/16/24 15:19 RB Document 01/23/24 14:14 DL Desktop 01/23/24 14:23 DL Document 01/25/24 10:37 DL Desktop 01/25/24 10:52 DL Document 01/30/24 14:49 KW [id number] 01/30/24 14:56 KW Document 02/06/24 14:23 DL [email or web address] 02/06/24 14:25 DL Document 02/13/24 14:37 DL [email or web address] 02/13/24 14:44 DL 01/16/24 01/23/24 01/25/24 15:17 14:14 10:37 Wound Center Nurse 1 #1 R post LE- post-op cluster -Combined with other wound No -Current Size (cm) - Length 2.8 2.2 -Current Size (cm) - Width 1.5 1.5 -Current Size (cm) - Depth 0.5 0.9 -Total Square Cm 4.20 3.30 -Photo Taken Yes -Tunneling No -Undermining/Tunneling No -Circular Undermining No -Exudate Amt Large Medium None Present -Exudate Type Serosanguineous Serosanguineous -Wound Margin Thickened & Distinct, Rolled Under Outline Attached -Granulation Amt Medium (34-66%) None Present (0 %) -Granulation Quality Pale -Slough/Fibrin Yes -Necrosis Amt Medium (34-66%) Large (67-100%) -Necrotic Tissue Type Adherent Slough Adherent Slough -Structure Exposed N/A N/A -Texture (Rachele-wound Skin Appearance) Assessed Scarring,Rash Scarring -Moisture (Rachele-wound Skin Appearance) Assessed Maceration No Abnormality -Color (Rachele-wound Skin Appearance) Erythema No Abnormality No Abnormality -Temperature (Rachele-wound Skin No Abnormality No Abnormality No Abnormality Appearance) (Pt Warm) (Pt Warm) (Pt Warm) -Tenderness on Palpation (Rachele-wound No No Skin Appearance) -Ulcer Cleansing Wound Cleanser Soap and Water Soap and Water -Foul Odor after Cleansing No No No -Anesthetic Used 5% Lidocaine 5% Lidocaine Gel Gel -Wound Comment(s) Epicord intact Lower Limb Edema Present Yes Right Calf (cm) 72 65 Right Ankle (cm) 34 31.2 01/30/24 02/06/24 02/13/24 14:49 14:23 14:37 Wound Center Nurse 1 #1 R post LE- post-op cluster -Combined with other wound -Current Size (cm) - Length 2.5 1.8 2.1 -Current Size (cm) - Width 1 1 1.2 -Current Size (cm) - Depth 0.4 0.3 0.4 -Total Square Cm 2.5 1.8 2.52 -Photo Taken -Tunneling -Undermining/Tunneling -Circular Undermining -Exudate Amt Medium Medium Medium -Exudate Type Serosanguineous Serosanguineous Serosanguineous -Wound Margin Distinct, Distinct, Distinct, Outline Outline Outline Attached Attached Attached -Granulation Amt Medium (34-66%) Medium (34-66%) Small (1-33%) -Granulation Quality Red Red [place] -Slough/Fibrin -Necrosis Amt Medium (34-66%) Medium (34-66%) Large (67-100%) -Necrotic Tissue Type Adherent Slough Adherent Slough Adherent Slough -Structure Exposed N/A N/A -Texture (Rachele-wound Skin Appearance) Assessed Callus,Scarring Scarring -Moisture (Rachele-wound Skin Appearance) Assessed Maceration Maceration -Color (Rachele-wound Skin Appearance) Assessed, No Abnormality No Abnormality Erythema -Temperature (Rachele-wound Skin No Abnormality No Abnormality No Abnormality Appearance) (Pt Warm) (Pt Warm) (Pt Warm) -Tenderness on Palpation (Rachele-wound No No No Skin Appearance) -Ulcer Cleansing Soap and Water Soap and Water Soap and Water -Foul Odor after Cleansing No No No -Anesthetic Used 5% Lidocaine 5% Lidocaine 5% Lidocaine Gel Gel Gel -Wound Comment(s) Lower Limb Edema Present Right Calf (cm) 65.5 63 64.5 Right Ankle (cm) 33.5 30 40 WC - Nurse 2 - General Ulcer CM Notes Start: 01/16/24 15:16 Freq: Status: Active Protocol: Activity Type Activity Date Activity User E-sign Co-sign Detail Recorded Client Recorded Date Recorded By Document 01/16/24 15:27 Laptop 01/16/24 15:32 Document 01/23/24 14:44 Laptop 01/23/24 14:52 Document 01/30/24 15:18 [place] [id number] 01/30/24 15:24 DS Edit Result 01/30/24 15:18 DS (1) [id number] 02/01/24 09:30 DS Document 02/06/24 14:44 [id number] [id number] 02/06/24 14:49 JF Document 02/13/24 14:57 JF [id number] 02/13/24 15:03 JF (1) #1 R post LE- post-op cluster - Apply Skin Sub - 1st 25 sq cm - Legs => 1 01/16/24 01/23/24 01/30/24 15:27 14:44 15:18 Wound Center Nurse 2 #1 R post LE- post-op cluster -Time 15:28 14:45 15:19 -Correct Patient Yes Yes Yes -Correct Side, Site, Position Yes Yes Yes -Correct Procedure Yes Yes Yes -Procedure Performed Yes Yes Yes -Type of Procedure Debridement Debridement Debridement -Clinical Debridement Subcutaneous Subcutaneous Subcutaneous -Tissue Removed Subcutaneous Subcutaneous Subcutaneous -Post Debridement (cm) - Length 2.6 2.1 2.3 -Post Debridement (cm) - Width 1.5 2.0 1.4 -Post Debridement (cm) - Depth 0.9 0.7 0.5 -Total Square (Post) (cm) 3.90 4.20 3.22 -Area of Debridement (cm) - Length 2.6 2.1 2.8 -Area of Debridement (cm) - Width 1.5 2.0 1.4 -Total Square (Area) (cm) 3.90 4.20 3.92 -Tunneling No No -Undermining/Tunneling No No No -Circular Undermining No No No -Wound/Ulcer Outcome Not Healed Not Healed Not Healed -Ulcer Cleansing Rinsed/ Rinsed/ Rinsed/ Irrigated with Irrigated with Irrigated with Saline Saline Saline -Foul Odor after Cleansing No No -Bioengineered Tissue No Yes Yes -Type of Bioengineered Tissue Epicord Epicord -Expiration Date 02/16/28 09/17/28 -Product Lot Number [id number] -Percent Used 100 100 -Lot number of Saline Used [id number] -Bleeding Controlled with Pressure Pressure Pressure -Treatment Response Procedure Procedure Procedure Tolerated Well Tolerated Well Tolerated Well -Offloading No No -Debridement - Subq, 1st 20sq cm Yes No No -Apply Skin Sub - 1st 25 sq cm - Legs 1 1 -Epicord (per sq cm) 6 6 Pain Scale: 0-10 Numeric Is Patient Pain Free? Yes Yes Yes 02/06/24 02/13/24 14:44 14:57 Wound Center Nurse 2 #1 R post LE- post-op cluster -Time 14:44 14:59 -Correct Patient Yes Yes -Correct Side, Site, Position Yes Yes -Correct Procedure Yes Yes -Procedure Performed Yes Yes -Type of Procedure Debridement Debridement -Clinical Debridement Subcutaneous Subcutaneous -Tissue Removed Subcutaneous Subcutaneous -Post Debridement (cm) - Length 2.4 2.4 -Post Debridement (cm) - Width 1.2 1.3 -Post Debridement (cm) - Depth 0.4 0.6 -Total Square (Post) (cm) 2.88 3.12 -Area of Debridement (cm) - Length 2.4 2.4 -Area of Debridement (cm) - Width 1.2 1.3 -Total Square (Area) (cm) 2.88 3.12 -Tunneling No No -Undermining/Tunneling No No -Circular Undermining No No -Wound/Ulcer Outcome Not Healed Not Healed -Ulcer Cleansing Rinsed/ Rinsed/ Irrigated with Irrigated with Saline Saline -Foul Odor after Cleansing No No -Bioengineered Tissue Yes Yes -Type of Bioengineered Tissue Epicord Epicord -Expiration Date 09/17/28 07/18/28 -Product Lot Number [id number] -Percent Used 100 100 -Lot number of Saline Used [id number] -Bleeding Controlled with Pressure Pressure -Treatment Response Procedure Procedure Tolerated Well Tolerated Well -Offloading No No -Debridement - Subq, 1st 20sq cm No No -Apply Skin Sub - 1st 25 sq cm - Legs 1 1 -Epicord (per sq cm) 6 6 Pain Scale: 0-10 Numeric Is Patient Pain Free? Yes Yes - Nurse 3 - General Ulcer D/C NN Start: 01/16/24 15:16 Freq: Status: Active Protocol: Activity Type Activity Date Activity User E-sign Co-sign Detail Recorded Client Recorded Date Recorded By Document 01/16/24 15:43 KW Desktop 01/16/24 15:45 KW Document 01/18/24 10:47 DS Desktop 01/18/24 11:06 DS Document 01/23/24 14:55 DL Desktop 01/23/24 14:56 DL Document 01/25/24 10:52 DL Desktop 01/25/24 10:53 DL Document 01/30/24 15:33 KW [id number] 01/30/24 15:34 KW Document 02/01/24 10:33 KW wound center 02/01/24 10:48 KW Document 02/06/24 14:54 KW wound center 02/06/24 14:55 KW Document 02/08/24 10:42 KW wound care 02/08/24 10:57 KW Document 02/13/24 15:14 DL [email or web address] 02/13/24 15:17 DL 01/16/24 01/18/24 01/23/24 15:43 10:47 14:55 Wound Care Center Nurse 3 #1 R post LE- post-op cluster -Ulcer Cleansing Soap and Water -Foul Odor after Cleansing No -Primary Dressing Applied Optilok 6.5x10, Optilok 6.5x10, Promogran Promogran Hannah Matter Hannah Matter -Other Dressing Epicord -Primary Dressing Covered/Secured with Dry Gauze & Roll Gauze, Secured with Tape -Other Covering -Optilok 6.5x10 1 1 -Promogran Hannah Matter 1 1 -Wound Comment(s) Right -Multi-Layered Wrap Application Multi-Layer Multi-Layer Multi-Layer Comp - Right ($ Comp - Right ($ Comp - Right ($ ) ) ) Treatment Response Vital Signs Temperature (97.8 F-99.1 F) 97.4 F L Temperature Source Temporal Pulse Rate (60-100) 111 H Pulse Location Monitor Respiratory Rate (12-18) Respiratory rate source Oxygen Delivery Method Blood Pressure (90/60-120/80) 147/84 H Blood Pressure Mean (mm Hg) 105 Source Monitor Position Sitting Blood Pressure Location Pain Scale: 0-10 Numeric Is Patient Pain Free? Yes No Yes RLE -Description Aching -Intensity 9 -Pain Behavior No Change in Behavior -Alleviating Factors/Interventions Will continue to monitor, Patient denies need for intervention, Emotional Support WC - Visit Discharge Discharge Condition Stable Stable Stable Ambulatory Status Ambulatory Ambulatory Ambulatory Transportation Private Auto Private Auto Private Auto Medication Reconcilliation completed & No No provided to patient/care provider Clinical Summary of Care Provided Yes Yes Notes: Facility Type Orders Sent 01/25/24 01/30/24 02/01/24 10:52 15:33 10:33 Wound Care Center Nurse 3 #1 R post LE- post-op cluster -Ulcer Cleansing Soap and Water Soap and Water Soap and Water -Foul Odor after Cleansing No No -Primary Dressing Applied Optilok 6.5x10 Optilok 6.5x10 -Other Dressing Epicord ePICORD -Primary Dressing Covered/Secured with Dry Gauze Dry Gauze & Dry Gauze & Roll Gauze, Roll Gauze, Secured with Secured with Tape Tape -Other Covering -Optilok 6.5x10 1 1 -Promogran Hannah Matter -Wound Comment(s) Right -Multi-Layered Wrap Application Multi-Layer Multi-Layer Multi-Layer Comp - Right ($ Comp - Right ($ Comp - Right ($ ) ) ) Treatment Response Procedure Tolerated Well Vital Signs Temperature (97.8 F-99.1 F) 97.1 F L Temperature Source Temporal Pulse Rate (60-100) 116 H Pulse Location Monitor Respiratory Rate (12-18) 18 Respiratory rate source Observation Oxygen Delivery Method Room Air Blood Pressure (90/60-120/80) 184/94 H Blood Pressure Mean (mm Hg) 124 Source Monitor Position Sitting Blood Pressure Location Left Forearm Pain Scale: 0-10 Numeric Is Patient Pain Free? Yes Yes Yes RLE -Description -Intensity -Pain Behavior -Alleviating Factors/Interventions WC - Visit Discharge Discharge Condition Stable Stable Ambulatory Status Ambulatory Ambulatory, Walker Transportation Private Auto Private Auto Medication Reconcilliation completed & provided to patient/care provider Clinical Summary of Care Provided Notes: DRESSING APPLIED PER [facility] Facility Type Home Health Orders Sent Yes 02/06/24 02/08/24 02/13/24 14:54 10:42 15:14 Wound Care Center Nurse 3 #1 R post LE- post-op cluster -Ulcer Cleansing Soap and Water Rinsed/ Irrigated with Saline -Foul Odor after Cleansing No -Primary Dressing Applied Optilok 6.5x10 -Other Dressing ATB OINTMENT epicord -Primary Dressing Covered/Secured with Dry Gauze & Dry Gauze & Dry Gauze & Roll Gauze, Roll Gauze, Roll Gauze, Secured with Secured with Secured with Tape Tape Tape -Other Covering ABD -Optilok 6.5x10 1 -Promogran Hannah Matter -Wound Comment(s) ATB ointment to small abscess Right -Multi-Layered Wrap Application Multi-Layer Multi-Layer Multi-Layer Comp - Right ($ Comp - Right ($ Comp - Right ($ ) ) ) Treatment Response Procedure Tolerated Well Vital Signs Temperature (97.8 F-99.1 F) 97.8 F Temperature Source Temporal Pulse Rate (60-100) 108 H Pulse Location Monitor Respiratory Rate (12-18) 18 Respiratory rate source Observation Oxygen Delivery Method Room Air Blood Pressure (90/60-120/80) 132/77 H Blood Pressure Mean (mm Hg) 95 Source Monitor Position Sitting Blood Pressure Location Left Arm Pain Scale: 0-10 Numeric Is Patient Pain Free? Yes Yes Yes RLE -Description -Intensity -Pain Behavior -Alleviating Factors/Interventions WC - Visit Discharge Discharge Condition Stable Stable Ambulatory Status Ambulatory Ambulatory Transportation Private Auto Private Auto Medication Reconcilliation completed & No provided to patient/care provider Clinical Summary of Care Provided Yes Notes: Facility Type Orders Sent Assessment/Plan Assessment/Plan (1) Non-pressure chronic ulcer of unspecified part of 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 All findings were discussed with the patient. All questions were answered to the patient's satisfaction. Excisional debridement down to and including subcutaneous tissue with a number 3 mm dermal curette to the right posterior calf. Predebridement measurement was 2.3 x 1.2 x 0.4 cm. Postdebridement measurement is 2.4 x 1.3 x 0.6 cm. EpiCord 2.0 x 3.0 cm graft was applied to the right posterior calf full-thickness ulceration with 100% use. Fourth application. The graft site was free and clear of any infection. The wound/skin graft substitute was dressed with nonadherent bandage secured in place with Steri-Strips followed by bolster dressing as well as a multilayer 3M compression bandage down to the right lower extremity. The patient will be placed on doxycycline after return of microbiology and culture and sensitivity. Patient will continue strict blood sugar control and decrease her smoking intake which she is understanding of. Follow-up at the wound care center with Dr. Lord in 1 week. (2) Acute painful diabetic polyneuropathy: CODE(S): E11.42 - Type 2 diabetes mellitus with diabetic polyneuropathy (3) Lymphedema, not elsewhere classified: CODE(S): I89.0 - Lymphedema, not elsewhere classified
[2024-02-15 10:50] VITALS: BP 179/85; PULSE 109; RESP 18; TEMP 36.1; BMI 62.5
== END 2024-02-15 23:59 | disposition home or self-care (01) ==
LOC: WC 10:30
PROVIDERS: PCP Internal Medicine; Referring Provider Internal Medicine; Visit Provider Podiatrist Foot & Ankle Surgery
DX: L97.212 Non-pressure chronic ulcer of right calf with fat layer exposed (principal); E66.01 Morbid (severe) obesity due to excess calories; Z68.44 Body mass index [BMI] 60.0-69.9, adult; T81.31XA Disruption of external operation (surgical) wound, not elsewhere classified, initial encounter; Y83.8 Other surgical procedures as the cause of abnormal reaction of the patient, or of later complication, without mention of misadventure at the time of the procedure; I89.0 Lymphedema, not elsewhere classified; Z79.82 Long term (current) use of aspirin; Z79.84 Long term (current) use of oral hypoglycemic drugs; Z79.899 Other long term (current) drug therapy
CPT/HCPCS: 11042; 15271; 29581; 87070; 87075; 87077; 87101; 87186; 87205; Q4187

== ENCOUNTER 2024-03-09 19:57 | Emergency (ER) | payer MEDICAID, SELFPAY ==
[2024-03-09 19:57] VITALS: BP 132/106; PULSE 110; RESP 19; TEMP 36.6; O2SAT 99; BMI 67.5
--- NOTE | 2024-03-09 20:35 | RAD_ITS ---
EXAM: XR CHEST, 2 VIEWS CLINICAL INDICATION: COUGH, LOWER RIGHT RIB PAIN TECHNIQUE: Frontal and lateral views of the chest. COMPARISON: 02/09/2024 FINDINGS: LUNGS AND PLEURAL SPACES: No significant abnormality. No consolidation or edema. No pneumothorax. No effusion. HEART: No significant abnormality. Cardiac silhouette not enlarged. MEDIASTINUM: Central airways and mediastinal contour are unremarkable. BONES/JOINTS: No significant abnormality. No acute fracture. SOFT TISSUES: No significant abnormality. RAD/Chest PA and Lateral IMPRESSION: No radiographic evidence of acute cardiopulmonary disease. Electronically Signed: Etienne Cox DO at 20:53 EDT ,
--- NOTE | 2024-03-09 20:46 | EDS_ITS ---
<Statement entered by Willow Steiner MD - 03/09/24 22:25> I have personally performed a face to face assessment of the patient and have reviewed the ELZA Note. Patient was seen and examined with ELZA Naomi Castro. I personally saw and examined this patient and agree with documentation. treatment, and plan. My van findings are below: HPI: This is a 43-year-old female who presents to the emergency department for nonproductive cough, mild shortness of breath and right-sided rib pain. The patient states she has had ongoing severe coughing fits. No hemoptysis. She developed pain in the right lateral side of her ribs, worse with coughing. She describes spasm-like pain that comes and goes. OTC analgesia is not controlling her symptoms at home. She has some mild congestion, no sore throat or otalgia. No fevers or chills. No vomiting or diarrhea. No chest pressure. Physical Exam: GEN: Alert, NAD HEAD: NC, AT HEENT: Moist mucous membranes. NECK: Supple, Full range of motion. CHEST: Right lateral/inferior chest wall TTP HEART: Regular rate and rhythm. Normal capillary refill. LUNGS: Clear to auscultation bilaterally. EXT: No cyanosis, edema. Normal ROM. Strength testing intact SKIN: Warm, dry. No rashes or lesions NEURO: Grossly intact. No deficits PSYCH: Normal affect MDM: Patient presents to the emergency department for cough and right-sided rib pain. Chest x-ray is clear showing no signs of pneumonia. There is also no signs of any pneumothorax or rib fractures. Chest pain is all reproducible in nature and likely musculoskeletal, costochondritis or pleurisy from the patient's recent cough and URI symptoms. Patient was given a dose of Toradol in the emergency department. She has naproxen at home and states she will take Tylenol with this. We encourage continued smoking cessation and symptomatic management. All questions answered. Return indications discussed. Patient discharged from the ED. IMPRESSIONS: 1. Viral UTI 2. Right chest wall pain Willow Steiner M.D. HPI History of Present Illness Chief Complaint: Chest Other Narrative Narrative: 43-year-old female states she has had a cough over the last 2 weeks that is very occasionally productive of sputum. Today she had a coughing fit and felt a cr ack and pain in her right posterior rib cage. She has not taken any pain relievers. She states this made it difficult to walk so she called EMS. She smokes about half a pack a day and uses an inhaler as needed. Denies fever, chills, dyspnea or wheezing or increased inhaler use this week. [facility] Medical History Open wound History of steroid therapy Diabetes Easy bruising Restless legs Migraine headache Wears glasses Cracked tooth Difficulty chewing GERD (gastroesophageal reflux disease) Electronic cigarette use CPAP (continuous positive airway pressure) dependence Shortness of breath on exertion History of stress test Anxiety Sleep apnea COPD (chronic obstructive pulmonary disease) Asthma Obesity Diabetes Bipolar 1 disorder Home Medications ?Medication ?Instructions ?Recorded ?Last Taken ?Type loratadine 10 mg tablet (Allergy 10 mg PO DAILY Allergies 07/07/13 11/07/19 History Relief (loratadine)) lorazepam 1 mg tablet 1 mg PO BID PRN PRN Anxiety 12/11/13 06/26/19 History trazodone 100 mg tablet 300 mg PO QHS depression 01/12/15 11/07/19 History montelukast 10 mg tablet 10 mg PO QHS 08/10/16 11/07/19 History sumatriptan succinate 25 mg tablet 25 mg PO .X1 PRN PRN Migraine 08/10/16 06/30/19 History (Imitrex) Symptoms aripiprazole 2 mg tablet 5 mg PO QHS 07/01/19 06/20/23 History citalopram 40 mg tablet 40 mg PO DAILY 07/01/19 09/28/23 History lamotrigine 200 mg tablet 200 mg PO BID 07/01/19 09/28/23 History metformin 500 mg tablet 1,000 mg PO BID dm 07/01/19 11/07/19 History naproxen 500 mg tablet 500 mg PO BID PRN PRN Pain Or Fever 07/01/19 Unknown History topiramate 100 mg tablet 100 mg PO BID 07/01/19 11/07/19 History glimepiride 2 mg tablet 4 mg PO DAILY 11/08/19 11/07/19 History lansoprazole 30 mg capsule,delayed 30 mg PO DAILY #30 CAPSULES 12/30/20 09/28/23 Rx release albuterol sulfate 90 mcg/actuation 2 puff inhalation Q4H PRN PRN 09/07/22 09/28/23 Rx aerosol inhaler (Ventolin HFA) Wheezing ##1 ferrous sulfate 325 mg (65 mg 325 mg PO TID #90 tabs 09/07/22 Unknown Rx iron) tablet (FeroSul) furosemide 20 mg tablet 20 mg PO BID 09/07/22 Unknown History cyclobenzaprine 10 mg tablet 10 mg PO TID PRN Muscle Spasm #20 12/09/22 Unknown Rx TABLETS pramipexole 1.5 mg tablet (Mirapex) 1.5 mg PO QHS 09/25/23 Unknown History ascorbic acid (vitamin C) 1,000 mg 1 g PO DAILY 90 days #90 tabs 09/28/23 Unknown Rx tablet (Vitamin C) calcium carbonate 500 mg-vitamin 1 tab PO DAILY 90 days #90 tabs 09/28/23 Unknown Rx D3 15 mcg (600 unit) tablet (Os-Wilfredo 500 + D3) cyclobenzaprine 10 mg tablet 10 mg PO TID 7 days #21 tabs 09/28/23 Unknown Rx docusate sodium 100 mg capsule 100 mg PO DAILY 10 days #10 caps 09/28/23 Unknown Rx (Colace) acetaminophen 500 mg tablet 1,000 mg (2 x 500 mg) PO Q6H PRN 03/09/24 Unknown Rx (Tylenol Extra Strength) pain 7 days #56 tabs benztropine 1 mg tablet 1 mg PO BID PRN PRN legs 03/09/24 Unknown History Allergy/AdvReac Type Severity Reaction Status Date / Time amoxicillin (From Augmentin) Allergy Intermediate Hives Verified 03/09/24 19:58 clavulanic acid (From Allergy Intermediate Hives Verified 03/09/24 19:58 Augmentin) melatonin Allergy Hives Verified 03/09/24 19:58 Penicillins Allergy Hives Verified 03/09/24 19:58 Surgical History History of cardiac catheterization History of umbilical hernia repair (~2017) History of herniorrhaphy Social History household members: none Smoking Status: Current every day smoker tobacco type: cigarettes and e- cigarettes substance use type: does not use ROS ROS ED ROS Narrative Constitutional: Negative for fever, chills, malaise. CVS: Negative for palpitations, chest pain, syncope. Respiratory: Positive for cough. Negative for shortness of breath, cough. EXAM Physical Exam Narrative Exam Narrative: CONST: Morbidly obese female sitting in no acute distress. EYES: Normal inspection. NECK: Normal inspection. RESP: No respiratory distress, CTAB. CVS: Regular rate and rhythm, no murmur, no gallop. ABD: Soft and nontender, no guarding or rebound, nondistended. Back: Normal inspection, tender over right lower posterior lateral rib cage with no deformity or crepitus, no bruising or swelling. SKIN: Color normal, no rash, warm, dry, intact. EXTREMITIES: Normal appearance, no pedal edema. NEURO: Alert and answering questions appropriately. PSYCH: Normal affect. Const Vital Signs: 03/09/24 19:57 03/09/24 19:57 03/09/24 19:57 Temperature 97.8 F 97.8 F Temperature Source Temporal Temporal Pulse Rate 110 H 110 H Respiratory Rate 19 H 19 H Respiratory Effort Normal Non-Labored Blood Pressure 132/106 H 132/106 H Blood Pressure Mean 114 114 Pulse Ox 99 99 Oxygen Delivery Method Room Air Room Air 03/09/24 21:22 03/09/24 21:41 Temperature Temperature Source Pulse Rate 101 H 101 H Respiratory Rate 16 18 Respiratory Effort Blood Pressure 92/67 119/83 H Blood Pressure Mean 75 95 Pulse Ox 98 98 Oxygen Delivery Method Room Air MDM MDM MDM Narrative Medical decision making narrative: Differential: Pneumonia, muscle strain, rib fracture Patient has had 2 weeks of a cough and after a coughing spell today developed pain in her right posterior rib cage in a small focal area. She appears well and nontoxic. She was initially tachycardic likely due to discomfort. She is tender over the right posterior 11th and 12th ribs with no deformity or crepitus. Normal heart and lung sounds. CXR shows no acute process. She was treated with IM Toradol with improvement. She is comfortable going home and was advised to treat as a muscle strain. She has naproxen and requested a Tylenol prescription. She was discharged in stable condition. Radiography Diagnostic Testing: Clinical Impression(s) from Imaging Studies Chest X-Ray 03/09/24 20:35 IMPRESSION: No radiographic evidence of acute cardiopulmonary disease. Electronically Signed: Etienne Cox, at 20:53 EDT , ED attending interpretation of 2 view chest x-ray shows no acute infiltrate, no evidence of displaced rib fracture or pneumothorax. Discharge Plan Triage Chief Complaint: Chest Other ED Midlevel Provider: Naomi Castro ED Provider: Willow Steiner Dx/Rx/DC Orders Clinical Impression: Acute URI, Rib pain on right side Instructions: ED URI, Viral, No Abx (Adult) Prescriptions: New acetaminophen [Tylenol Extra Strength] 500 mg tablet 1,000 mg PO Q6H PRN (Reason: pain) 7 Days Qty: 56 0RF No Action loratadine [Allergy Relief (loratadine)] 10 MG tablet 10 mg PO DAILY lorazepam 1 MG tablet 1 mg PO BID PRN PRN (Reason: Anxiety) trazodone 100 MG tablet 300 mg PO QHS sumatriptan succinate [Imitrex] 25 MG tablet 25 mg PO .X1 PRN PRN (Reason: Migraine Symptoms) montelukast 10 MG tablet 10 mg PO QHS metformin 500 MG tablet 1,000 mg PO BID Patient Comments: TAKE 2 TABLETS TWICE DAILY WITH meals lamotrigine 200 mg tablet 200 mg PO BID Patient Comments: 1 tablet twice a day citalopram 40 tablet 40 mg PO DAILY topiramate 100 MG tablet 100 mg PO BID Patient Comments: TAKE 1 TABLET TWICE DAILY naproxen 500 MG tablet 500 mg PO BID PRN PRN (Reason: Pain Or Fever) Patient Comments: TAKE 1 TABLET TWICE DAILY WITH FOOD NEEDED FOR PAIN /inflammation aripiprazole 2 mg tablet 5 mg PO QHS Patient Comments: Take 1 tablet by mouth once a day glimepiride 2 MG tablet 4 mg PO DAILY lansoprazole 30 MG capsule 30 mg PO DAILY Qty: 30 0RF furosemide 20 mg tablet 20 mg PO BID ferrous sulfate [FeroSul] 325 mg (65 mg iron) tablet 325 mg PO TID Qty: 90 0RF Rx Instructions: May start once a day for a week, twice a day for a week, and then start 3 times daily. albuterol sulfate [Ventolin HFA] 90 mcg/actuation HFA aerosol inhaler 2 puff inhalation Q4H PRN MDD Dispense with spacer if availa PRN (Reason: Wheezing) Qty: 1 0RF cyclobenzaprine [cyclobenzaprine] 10 mg tablet 10 mg PO TID PRN (Reason: Muscle Spasm) Qty: 20 0RF pramipexole [Mirapex] 1.5 mg tablet 1.5 mg PO QHS cyclobenzaprine 10 mg tablet 10 mg PO TID 7 Days Qty: 21 0RF docusate sodium [Colace] 100 mg capsule 100 mg PO DAILY 10 Days Qty: 10 0RF ascorbic acid (vitamin C) [Vitamin C] 1,000 mg tablet 1 g PO DAILY 90 Days Qty: 90 0RF calcium carbonate-vitamin D3 [Os-Wilferdo 500 + D3] 500 mg-15 mcg (600 unit) tablet 1 tab PO DAILY 90 Days Qty: 90 0RF benztropine 1 mg tablet 1 mg PO BID PRN PRN (Reason: legs) Primary Care Provider: Verona Villarreal Referrals: Verona Villarreal MD [Primary Care Provider] - Activity Restrictions/Additional Instructions: Treat the muscle strain with ice, Tylenol, and the naproxen you have at home. Follow-up with your primary care doctor if not improving. Print Language: Jordanian
[2024-03-09] MEDS: Ketorolac 30 MG/ML Syringe IM (21:00)
[2024-03-09 21:22] VITALS: BP 92/67; PULSE 101; RESP 16; O2SAT 98
[2024-03-09 21:41] VITALS: BP 119/83; PULSE 101; RESP 18; O2SAT 98
[2024-03-09 21:56] VITALS: BP 109/88; PULSE 102; RESP 16; TEMP 37.2; O2SAT 98
== END 2024-03-09 21:59 | disposition home or self-care (01) ==
PROVIDERS: Emergency Provider Emergency Medicine; PCP Internal Medicine; Visit Provider Emergency Medicine
DX: J06.9 Acute upper respiratory infection, unspecified (principal); J44.9 Chronic obstructive pulmonary disease, unspecified; E11.9 Type 2 diabetes mellitus without complications; R07.89 Other chest pain; R06.02 Shortness of breath; R07.81 Pleurodynia; F17.210 Nicotine dependence, cigarettes, uncomplicated; Z79.84 Long term (current) use of oral hypoglycemic drugs; Z79.899 Other long term (current) drug therapy
CPT/HCPCS: 71046; 96372; 99282

== ENCOUNTER 2024-03-12 14:45 | Outpatient (RCR) | payer MEDICAID, SELFPAY ==
[2024-02-16 02:16] VITALS: BP 143/85; PULSE 113; RESP 18; TEMP 36.6; BMI 62.5
[2024-02-20 14:51] VITALS: BP 166/93; PULSE 124; RESP 18; TEMP 36; BMI 62.5
--- NOTE | 2024-02-20 15:35 | PN.PCM_ITS ---
History of Present Illness Date of Service: 02/20/24 Chief Complaint: Ulceration right posterior leg History of Wound: Ulceration right posterior leg Subjective Subjective Mrs. Rodriguez is a 43-year-old diabetic female resenting to the wound care center today for follow-up evaluation of posterior right calf ulceration. Patient has left her multilayer compression bandage clean dry and intact. She has had strict blood sugar control. She denies trauma. Denies constitutional symptoms. No other pedal complaints at this time. Objective Data Objective Data Vital Signs: Vital Signs Temp Pulse Resp BP O2 Del Method 96.8 F L 124 H 18 166/93 H Room Air 02/20/24 14:51 02/20/24 14:51 02/20/24 14:51 02/20/24 14:51 02/20/24 14:51 Oxygen Delivery Method Room Air Weight: 160.223 kg Body Mass Index (BMI) 62.5 Physical Exam Narrative Vascular: DP and PT pulses palpable. CFT is brisk. Nonpitting edema appreciated to right lower extremity. No erythema or proximal streaking is appreciated. Neurological: Light touch intact. Patient response to painful stimuli. Dermatological: Evidence of surgical wound dehiscence secondary to nonweightbearing and lack of medical compliance. Full-thickness ulceration measures 2.2 x 1.2 x 0.7 cm. Wound base is granular nature with sanguinous drainage after debridement. No evidence of erythema or proximal streaking. Evidence of a boil to the distal aspect anterior right leg, healed. Excisional debridement down to and including subcutaneous tissue with a number 3 mm dermal curette to the right posterior calf. Predebridement measurement was 2.1 x 1.1 x 0.4 cm. Postdebridement measurement is 2.2 x 1.2 x 0.7 cm. EpiCord 2.0 x 3.0 cm graft was applied to the right posterior calf full- thickness ulceration with 100% use. Fifth application. The graft site was free and clear of any infection. The wound/skin graft substitute was dressed with nonadherent bandage secured in place with Steri-Strips followed by bolster dressing as well as a multilayer 3M compression bandage down to the right lower extremity. Musculoskeletal: No pain with calf compression. Mild pain to palpation full- thickness ulceration right calf. Palpable bogginess and flocculence appreciated to the anterior ankle of the right lower extremity at the level of the boil. Debridement Note Debridement Note Debridement Free Text: Excisional debridement down to and including subcutaneous tissue with a number 3 mm dermal curette to the right posterior calf. Predebridement measurement was 2.1 x 1.1 x 0.4 cm. Postdebridement measurement is 2.2 x 1.2 x 0.7 cm. EpiCord 2.0 x 3.0 cm graft was applied to the right posterior calf full- thickness ulceration with 100% use. Fifth application. The graft site was free and clear of any infection. The wound/skin graft substitute was dressed with nonadherent bandage secured in place with Steri-Strips followed by bolster dressing as well as a multilayer 3M compression bandage down to the right lower extremity. Post-Debridement Measurements and Additional Note: Post-Debridement Measurements/Treatment - Nurse 1 - General Ulcer Assessment Start: 02/20/24 14:50 Freq: Status: Active Protocol: WC.LOWEXT Activity Type Activity Date Activity User E-sign Co-sign Detail Recorded Client Recorded Date Recorded By Document 02/20/24 14:51 [facility] [id number] 02/20/24 15:06 [facility] 02/20/24 14:51 - Today's Visit Information Type of service Follow-up Visit (Physician/CSR TECHNICIAN ) Arrival Mode Ambulatory Transfer Assistance None Patient Identification Verified (Name & Yes ) Patient Requires Transmission-Based No Precautions Height and Weight Body Mass Index (BMI) 62.5 BMI Classification Obese Vital Signs Temperature (97.8 F-99.1 F) 96.8 F L Temperature Source Temporal Pulse Rate (60-100) 124 H Pulse Location Monitor Respiratory Rate (12-18) 18 Respiratory rate source Observation Oxygen Delivery Method Room Air Blood Pressure (90/60-120/80) 166/93 H Blood Pressure Mean (mm Hg) 117 Source Monitor Position Sitting Blood Pressure Location Left Forearm History Since Last Visit- (Skip if this is Patient's initial visit) Have you changed medications since your No last visit? Any new allergies or adverse reactions No Had a fall/change in ADL's that may No increase risk of falls Signs or symptoms of abuse and/or No neglect since last visit Have you been in the hospital since your No last visit? Has dressing in place as prescribed Yes Has compression in place as prescribed No Has offloadiing in place as prescribed N/A Experienced any changes in pain level or No management Left Footwear Regular Shoe Right Footwear Regular Shoe Other Footwear 3M SLIDING DOWN MID CALF Pain Scale: 0-10 Numeric Is Patient Pain Free? Yes WC - Nurse 1 - General Ulcer Measurement Start: 02/20/24 14:50 Freq: Status: Active Protocol: Activity Type Activity Date Activity User E-sign Co-sign Detail Recorded Client Recorded Date Recorded By Document 02/20/24 14:51 [facility] [id number] 02/20/24 15:06 [facility] 02/20/24 14:51 Wound Center Nurse 1 #1 R post LE- post-op cluster -Combined with other wound No -Current Size (cm) - Length 1.8 -Current Size (cm) - Width 1.2 -Current Size (cm) - Depth 0.4 -Total Square Cm 2.16 -Date of Last Picture (Recall this 02/20/24 field) -Photo Taken Yes -Epithelialization None Present -Tunneling No -Undermining/Tunneling No -Circular Undermining No -Exudate Amt Medium -Exudate Type Serosanguineous -Wound Margin Distinct, Outline Attached -Granulation Amt Medium (34-66%) -Granulation Quality Pale,Red -Slough/Fibrin Yes -Necrosis Amt Medium (34-66%) -Necrotic Tissue Type Adherent Slough -Texture (Rachele-wound Skin Appearance) Assessed, Scarring -Moisture (Rachele-wound Skin Appearance) Assessed, Maceration -Color (Rachele-wound Skin Appearance) Assessed -Temperature (Rachele-wound Skin No Abnormality Appearance) (Pt Warm) -Tenderness on Palpation (Rachele-wound No Skin Appearance) -Ulcer Cleansing Soap and Water -Foul Odor after Cleansing No -Anesthetic Used 5% Lidocaine Gel Lower Limb Edema Present Yes Right Ankle (cm) 31.6 WC - Nurse 2 - General Ulcer CM Notes Start: 02/20/24 14:50 Freq: Status: Active Protocol: Activity Type Activity Date Activity User E-sign Co-sign Detail Recorded Client Recorded Date Recorded By Document 02/20/24 15:20 [id number] 02/20/24 15:22 02/20/24 15:20 Wound Center Nurse 2 #1 R post LE- post-op cluster -Time 15:20 -Correct Patient Yes -Correct Side, Site, Position Yes -Correct Procedure Yes -Procedure Performed Yes -Type of Procedure Debridement -Clinical Debridement Subcutaneous -Tissue Removed Subcutaneous -Post Debridement (cm) - Length 2.2 -Post Debridement (cm) - Width 1.2 -Post Debridement (cm) - Depth 0.7 -Total Square (Post) (cm) 2.64 -Area of Debridement (cm) - Length 2.2 -Area of Debridement (cm) - Width 1.2 -Total Square (Area) (cm) 2.64 -Tunneling No -Undermining/Tunneling No -Circular Undermining No -Wound/Ulcer Outcome Not Healed -Ulcer Cleansing Rinsed/ Irrigated with Saline -Foul Odor after Cleansing No -Bioengineered Tissue Yes -Type of Bioengineered Tissue Epicord -Expiration Date 09/17/28 -Product Lot Number [id number] -Percent Used 100 -Lot number of Saline Used [id number] -Bleeding Controlled with Pressure -Treatment Response Procedure Tolerated Well -Offloading No -Debridement - Subq, 1st 20sq cm No -Apply Skin Sub - 1st 25 sq cm - Legs 1 -Dermabond 1 -Epicord (per sq cm) 6 Pain Scale: 0-10 Numeric Is Patient Pain Free? 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 All findings were discussed with the patient. All questions were answered to the patient's satisfaction. Excisional debridement down to and including subcutaneous tissue with a number 3 mm dermal curette to the right posterior calf. Predebridement measurement was 2.1 x 1.1 x 0.4 cm. Postdebridement measurement is 2.2 x 1.2 x 0.7 cm. EpiCord 2.0 x 3.0 cm graft was applied to the right posterior calf full- thickness ulceration with 100% use. Fifth application. The graft site was free and clear of any infection. The wound/skin graft substitute was dressed with nonadherent bandage secured in place with Steri-Strips followed by bolster dressing as well as a multilayer 3M compression bandage down to the right lower extremity. Patient will follow-up with nursing visits/dressing changes visits, Before following up with Dr. Lord. Follow-up at the wound care center with Dr. Lord in 2 week. (2) Lymphedema, not elsewhere classified: CODE(S): I89.0 - Lymphedema, not elsewhere classified (3) Morbidly obese: CODE(S): E66.01 - Morbid (severe) obesity due to excess calories
[2024-02-27 13:37] VITALS: BP 186/94; PULSE 113; RESP 18; TEMP 36.2; BMI 62.5
[2024-03-05 14:16] VITALS: BP 162/97; PULSE 127; RESP 20; TEMP 36.1; BMI 62.5
--- NOTE | 2024-03-05 16:41 | PN.PCM_ITS ---
History of Present Illness Date of Service: 03/05/24 Chief Complaint: Ulceration right posterior leg History of Wound: Ulceration right posterior leg Subjective Subjective Mrs. Rodriguez is a 43-year-old diabetic female resenting to the wound care center today for follow-up evaluation of posterior right calf ulceration. Patient has left her multilayer compression bandage clean dry and intact. She has had strict blood sugar control. She denies trauma. Denies constitutional symptoms. No other pedal complaints at this time. Objective Data Objective Data Vital Signs: Vital Signs Temp Pulse Resp BP O2 Del Method 96.9 F L 127 H 20 H 162/97 H Room Air 03/05/24 14:16 03/05/24 14:16 03/05/24 14:16 03/05/24 14:16 03/05/24 14:16 Oxygen Delivery Method Room Air Weight: 160.223 kg Body Mass Index (BMI) 62.5 Physical Exam Narrative Vascular: DP and PT pulses palpable. CFT is brisk. Nonpitting edema appreciated to right lower extremity. No erythema or proximal streaking is appreciated. Neurological: Light touch intact. Patient response to painful stimuli. Dermatological: Full-thickness ulceration measures right calf measuring 2.1 x 1.1 x 0.5 cm. Wound base is granular nature with sanguinous drainage after debridement. No evidence of erythema or proximal streaking. Evidence of a boil to the distal aspect anterior right leg, healed. Excisional debridement down to and including subcutaneous tissue with a number 3 mm dermal curette to the right posterior calf. Predebridement measurement was 2.0 x 1.0 x 0.4 cm. Postdebridement measurement is 2.1 x 1.1 x 0.5 cm. EpiCord 2.0 x 3.0 cm graft was applied to the right posterior calf full- thickness ulceration with 100% use. Sixth application. The graft site was free and clear of any infection. The wound/skin graft substitute was dressed with nonadherent bandage secured in place with Steri-Strips followed by bolster dressing as well as a multilayer 3M compression bandage down to the right lower extremity. Musculoskeletal: No pain with calf compression. Mild pain to palpation full- thickness ulceration right calf. Palpable bogginess and flocculence appreciated to the anterior ankle of the right lower extremity at the level of the boil. Debridement Note Debridement Note Debridement Free Text: Excisional debridement down to and including subcutaneous tissue with a number 3 mm dermal curette to the right posterior calf. Predebridement measurement was 2.0 x 1.0 x 0.4 cm. Postdebridement measurement is 2.1 x 1.1 x 0.5 cm. EpiCord 2.0 x 3.0 cm graft was applied to the right posterior calf full- thickness ulceration with 100% use. Sixth application. The graft site was free and clear of any infection. The wound/skin graft substitute was dressed with nonadherent bandage secured in place with Steri-Strips followed by bolster dressing as well as a multilayer 3M compression bandage down to the right lower extremity. Post-Debridement Measurements and Additional Note: Post-Debridement Measurements/Treatment - Nurse 1 - General Ulcer Assessment Start: 02/20/24 14:50 Freq: Status: Active Protocol: .LOWEXT Activity Type Activity Date Activity User E-sign Co-sign Detail Recorded Client Recorded Date Recorded By Document 02/20/24 14:51 [facility] 1606-08-26 02/20/24 15:06 [facility] Document 02/27/24 13:37 KW wound center 02/27/24 13:38 KW Document 03/05/24 14:16 KW j 03/05/24 14:26 KW 02/20/24 02/27/24 03/05/24 14:51 13:37 14:16 - Today's Visit Information Type of service Follow-up Visit Nurse-only Follow-up Visit (Physician/NURSERY ATTENDANT Visit (Physician/NURSERY ATTENDANT ) ) Arrival Mode Ambulatory Ambulatory Ambulatory Transfer Assistance None Patient Identification Verified (Name & Yes Yes Yes ) Patient Requires Transmission-Based No Precautions Height and Weight Body Mass Index (BMI) 62.5 62.5 62.5 BMI Classification Obese Obese Obese Vital Signs Temperature (97.8 F-99.1 F) 96.8 F L 97.1 F L 96.9 F L Temperature Source Temporal Temporal Temporal Pulse Rate (60-100) 124 H 113 H 127 H Pulse Location Monitor Monitor Monitor Respiratory Rate (12-18) 18 18 20 H Respiratory rate source Observation Observation Observation Oxygen Delivery Method Room Air Room Air Room Air Blood Pressure (90/60-120/80) 166/93 H 186/94 H 162/97 H Blood Pressure Mean (mm Hg) 117 124 118 Source Monitor Monitor Monitor Position Sitting Sitting Sitting Blood Pressure Location Left Forearm Left Forearm Left Forearm History Since Last Visit- (Skip if this is Patient's initial visit) Have you changed medications since your No No No last visit? Any new allergies or adverse reactions No No No Had a fall/change in ADL's that may No No No increase risk of falls Signs or symptoms of abuse and/or No No No neglect since last visit Have you been in the hospital since your No No No last visit? Has dressing in place as prescribed Yes Yes Yes Has compression in place as prescribed No Yes Yes Has offloadiing in place as prescribed N/A N/A N/A Experienced any changes in pain level or No No No management Left Footwear Regular Shoe Slipper Slipper Right Footwear Regular Shoe Slipper Slipper Other Footwear 3M SLIDING DOWN MID CALF Pain Scale: 0-10 Numeric Is Patient Pain Free? Yes Yes Yes WC - Nurse 1 - General Ulcer Measurement Start: 02/20/24 14:50 Freq: Status: Active Protocol: Activity Type Activity Date Activity User E-sign Co-sign Detail Recorded Client Recorded Date Recorded By Document 02/20/24 14:51 [facility] 1606-08-26 02/20/24 15:06 [facility] Document 03/05/24 14:16 KW j 03/05/24 14:26 KW 02/20/24 03/05/24 14:51 14:16 Wound Center Nurse 1 #1 R post LE- post-op cluster -Combined with other wound No -Current Size (cm) - Length 1.8 2 -Current Size (cm) - Width 1.2 1 -Current Size (cm) - Depth 0.4 0.7 -Total Square Cm 2.16 2 -Date of Last Picture (Recall this 02/20/24 03/05/24 field) -Photo Taken Yes -Epithelialization None Present -Tunneling No -Undermining/Tunneling No -Circular Undermining No -Exudate Amt Medium Small -Exudate Type Serosanguineous Serosanguineous -Wound Margin Distinct, Distinct, Outline Outline Attached Attached -Granulation Amt Medium (34-66%) Large (67-100%) -Granulation Quality Pale,Red [place] -Slough/Fibrin Yes -Necrosis Amt Medium (34-66%) Large (67-100%) -Necrotic Tissue Type Adherent Slough Adherent Slough -Texture (Rachele-wound Skin Appearance) Assessed, Assessed Scarring -Moisture (Rachele-wound Skin Appearance) Assessed, Assessed Maceration -Color (Rachele-wound Skin Appearance) Assessed Assessed -Temperature (Rachele-wound Skin No Abnormality No Abnormality Appearance) (Pt Warm) (Pt Warm) -Tenderness on Palpation (Rachele-wound No No Skin Appearance) -Ulcer Cleansing Soap and Water Soap and Water -Foul Odor after Cleansing No No -Anesthetic Used 5% Lidocaine 5% Lidocaine Gel Gel Lower Limb Edema Present Yes Right Calf (cm) 68 Right Ankle (cm) 31.6 43 WC - Nurse 2 - General Ulcer CM Notes Start: 02/20/24 14:50 Freq: Status: Active Protocol: Activity Type Activity Date Activity User E-sign Co-sign Detail Recorded Client Recorded Date Recorded By Document 02/20/24 15:20 [id number] 02/20/24 15:22 Document 03/05/24 14:40 [id number] 03/05/24 14:47 02/20/24 03/05/24 15:20 14:40 Wound Center Nurse 2 #1 R post LE- post-op cluster -Time 15:20 14:40 -Correct Patient Yes Yes -Correct Side, Site, Position Yes Yes -Correct Procedure Yes Yes -Procedure Performed Yes Yes -Type of Procedure Debridement Debridement -Clinical Debridement Subcutaneous Subcutaneous -Tissue Removed Subcutaneous Subcutaneous -Post Debridement (cm) - Length 2.2 2.1 -Post Debridement (cm) - Width 1.2 1.1 -Post Debridement (cm) - Depth 0.7 0.5 -Total Square (Post) (cm) 2.64 2.31 -Area of Debridement (cm) - Length 2.2 2.1 -Area of Debridement (cm) - Width 1.2 1.1 -Total Square (Area) (cm) 2.64 2.31 -Tunneling No No -Undermining/Tunneling No No -Circular Undermining No No -Wound/Ulcer Outcome Not Healed Not Healed -Ulcer Cleansing Rinsed/ Rinsed/ Irrigated with Irrigated with Saline Saline -Foul Odor after Cleansing No No -Bioengineered Tissue Yes Yes -Type of Bioengineered Tissue Epicord Epicord -Expiration Date 09/17/28 09/17/28 -Product Lot Number [id number] -Percent Used 100 100 -Lot number of Saline Used [id number] -Bleeding Controlled with Pressure Pressure -Treatment Response Procedure Procedure Tolerated Well Tolerated Well -Offloading No No -Debridement - Subq, 1st 20sq cm No No -Apply Skin Sub - 1st 25 sq cm - Legs 1 1 -Dermabond 1 -Epicord (per sq cm) 6 6 Pain Scale: 0-10 Numeric Is Patient Pain Free? Yes Yes - Nurse 3 - General Ulcer D/C NN Start: 02/20/24 14:50 Freq: Status: Active Protocol: Activity Type Activity Date Activity User E-sign Co-sign Detail Recorded Client Recorded Date Recorded By Document 02/20/24 15:45 KW Wound center 02/20/24 15:45 KW Document 02/27/24 13:37 KW wound center 02/27/24 13:38 KW Document 03/05/24 15:10 DL [id number] 03/05/24 15:11 DL 02/20/24 02/27/24 03/05/24 15:45 13:37 15:10 Wound Care Center Nurse 3 #1 R post LE- post-op cluster -Ulcer Cleansing Soap and Water -Foul Odor after Cleansing No -Other Dressing epifix/nugel -Primary Dressing Covered/Secured with Dry Gauze & Dry Gauze & Dry Gauze & Roll Gauze, Roll Gauze, Roll Gauze, Secured with Secured with Secured with Tape Tape Tape -Other Covering ABD Right -Multi-Layered Wrap Application Multi-Layer Multi-Layer Multi-Layer Comp - Right ($ Comp - Right ($ Comp - Right ($ ) ) ) Treatment Response Procedure Tolerated Well Vital Signs Temperature (97.8 F-99.1 F) 97.1 F L Temperature Source Temporal Pulse Rate (60-100) 113 H Pulse Location Monitor Respiratory Rate (12-18) 18 Respiratory rate source Observation Oxygen Delivery Method Room Air Blood Pressure (90/60-120/80) 186/94 H Blood Pressure Mean (mm Hg) 124 Source Monitor Position Sitting Blood Pressure Location Left Forearm Pain Scale: 0-10 Numeric Is Patient Pain Free? 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 All findings were discussed with the patient. All questions were answered to the patient's satisfaction. Excisional debridement down to and including subcutaneous tissue with a number 3 mm dermal curette to the right posterior calf. Predebridement measurement was 2.0 x 1.0 x 0.4 cm. Postdebridement measurement is 2.1 x 1.1 x 0.5 cm. EpiCord 2.0 x 3.0 cm graft was applied to the right posterior calf full- thickness ulceration with 100% use. Sixth application. The graft site was free and clear of any infection. The wound/skin graft substitute was dressed with nonadherent bandage secured in place with Steri-Strips followed by bolster dressing as well as a multilayer 3M compression bandage down to the right lower extremity. Follow-up at the wound care center with Dr. Lord in 1 week. (2) Lymphedema, not elsewhere classified: CODE(S): I89.0 - Lymphedema, not elsewhere classified (3) Acute painful diabetic polyneuropathy: CODE(S): E11.42 - Type 2 diabetes mellitus with diabetic polyneuropathy
[2024-03-12 15:02] VITALS: BP 181/109; PULSE 115; RESP 22; TEMP 36.8; BMI 62.5
--- NOTE | 2024-03-12 21:58 | PN.PCM_ITS ---
History of Present Illness Date of Service: 03/12/24 Chief Complaint: Ulceration right posterior leg History of Wound: Ulceration right posterior leg Subjective Subjective Ms. Rodriguez is a 43-year-old diabetic female presenting to the wound care center today for follow-up evaluation of posterior calf full-thickness ulceration. She has kept her wrap clean dry and intact. Her blood sugars under control. She denies smoking. She is not eating any sugary or salty drinks. She denies any pain to the right leg. Denies trauma. Denies constitutional symptoms. No other pedal complaints at this time. Objective Data Objective Data Vital Signs: Vital Signs Temp Pulse Resp BP O2 Del Method 98.2 F 115 H 22 H 181/109 H Room Air 03/12/24 15:02 03/12/24 15:02 03/12/24 15:02 03/12/24 15:02 03/05/24 14:16 Oxygen Delivery Method Room Air Weight: 160.223 kg Body Mass Index (BMI) 62.5 Physical Exam Narrative Vascular: DP and PT pulses palpable. CFT is brisk. Nonpitting edema appreciated to right lower extremity. No erythema or proximal streaking is appreciated. Neurological: Light touch intact. Patient response to painful stimuli. Dermatological: Full-thickness ulceration measures right calf measuring 2.0 x 1. 2 x 0.6 cm. Wound base is granular nature with sanguinous drainage after debridement. No evidence of erythema or proximal streaking. Evidence of a boil to the distal aspect anterior right leg, healed. Excisional debridement down to and including subcutaneous tissue with a number 3 mm dermal curette to the right posterior calf. Predebridement measurement was 1.9 x 1.1 x 0.4 cm. Postdebridement measurement is 2.0 x 1.2 x 0.6 cm. EpiCord 2.0 x 3.0 cm graft was applied to the right posterior calf full- thickness ulceration with 100% use. Seventh application. The graft site was free and clear of any infection. The wound/skin graft substitute was dressed with nonadherent bandage secured in place with Steri-Strips followed by bolster dressing as well as a multilayer 3M compression bandage down to the right lower extremity. Musculoskeletal: No pain with calf compression. Mild pain to palpation full- thickness ulceration right calf. Palpable bogginess and flocculence appreciated to the anterior ankle of the right lower extremity at the level of the boil. Debridement Note Debridement Note Debridement Free Text: Excisional debridement down to and including subcutaneous tissue with a number 3 mm dermal curette to the right posterior calf. Predebridement measurement was 1.9 x 1.1 x 0.4 cm. Postdebridement measurement is 2.0 x 1.2 x 0.6 cm. EpiCord 2.0 x 3.0 cm graft was applied to the right posterior calf full- thickness ulceration with 100% use. Seventh application. The graft site was free and clear of any infection. The wound/skin graft substitute was dressed with nonadherent bandage secured in place with Steri-Strips followed by bolster dressing as well as a multilayer 3M compression bandage down to the right lower extremity. Post-Debridement Measurements and Additional Note: Post-Debridement Measurements/Treatment - Nurse 1 - General Ulcer Assessment Start: 02/20/24 14:50 Freq: Status: Active Protocol: .LOWEXT Activity Type Activity Date Activity User E-sign Co-sign Detail Recorded Client Recorded Date Recorded By Document 02/20/24 14:51 [facility] [id number] 02/20/24 15:06 [facility] Document 02/27/24 13:37 KW wound center 02/27/24 13:38 KW Document 03/05/24 14:16 KW j 03/05/24 14:26 KW Document 03/12/24 15:02 DL [email or web address] 03/12/24 15:10 DL 02/20/24 02/27/24 03/05/24 14:51 13:37 14:16 - Today's Visit Information Type of service Follow-up Visit Nurse-only Follow-up Visit (Physician/INTERNAL COMMUNICATIONS SPECIALIST Visit (Physician/INTERNAL COMMUNICATIONS SPECIALIST ) ) Arrival Mode Ambulatory Ambulatory Ambulatory Transfer Assistance None Patient Identification Verified (Name & Yes Yes Yes ) Patient Requires Transmission-Based No Precautions Height and Weight Body Mass Index (BMI) 62.5 62.5 62.5 BMI Classification Obese Obese Obese Vital Signs Temperature (97.8 F-99.1 F) 96.8 F L 97.1 F L 96.9 F L Temperature Source Temporal Temporal Temporal Pulse Rate (60-100) 124 H 113 H 127 H Pulse Location Monitor Monitor Monitor Respiratory Rate (12-18) 18 18 20 H Respiratory rate source Observation Observation Observation Oxygen Delivery Method Room Air Room Air Room Air Blood Pressure (90/60-120/80) 166/93 H 186/94 H 162/97 H Blood Pressure Mean (mm Hg) 117 124 118 Source Monitor Monitor Monitor Position Sitting Sitting Sitting Blood Pressure Location Left Forearm Left Forearm Left Forearm History Since Last Visit- (Skip if this is Patient's initial visit) Have you changed medications since your No No No last visit? Any new allergies or adverse reactions No No No Had a fall/change in ADL's that may No No No increase risk of falls Signs or symptoms of abuse and/or No No No neglect since last visit Have you been in the hospital since your No No No last visit? Has dressing in place as prescribed Yes Yes Yes Has compression in place as prescribed No Yes Yes Has offloadiing in place as prescribed N/A N/A N/A Experienced any changes in pain level or No No No management Left Footwear Regular Shoe Slipper Slipper Right Footwear Regular Shoe Slipper Slipper Other Footwear 3M SLIDING DOWN MID CALF Pain Scale: 0-10 Numeric Is Patient Pain Free? Yes Yes Yes 03/12/24 15:02 WC - Today's Visit Information Type of service Follow-up Visit (Physician/INTERNAL COMMUNICATIONS SPECIALIST ) Arrival Mode Ambulatory Transfer Assistance None Patient Identification Verified (Name & Yes ) Patient Requires Transmission-Based No Precautions Height and Weight Body Mass Index (BMI) 62.5 BMI Classification Obese Vital Signs Temperature (97.8 F-99.1 F) 98.2 F Temperature Source Temporal Pulse Rate (60-100) 115 H Pulse Location Monitor Respiratory Rate (12-18) 22 H Respiratory rate source Observation Oxygen Delivery Method Blood Pressure (90/60-120/80) 181/109 H Blood Pressure Mean (mm Hg) 133 Source Monitor Position Blood Pressure Location History Since Last Visit- (Skip if this is Patient's initial visit) Have you changed medications since your No last visit? Any new allergies or adverse reactions No Had a fall/change in ADL's that may No increase risk of falls Signs or symptoms of abuse and/or No neglect since last visit Have you been in the hospital since your No last visit? Has dressing in place as prescribed Yes Has compression in place as prescribed Yes Has offloadiing in place as prescribed N/A Experienced any changes in pain level or Yes management Left Footwear Right Footwear Other Footwear Pain Scale: 0-10 Numeric Is Patient Pain Free? Yes WC - Nurse 1 - General Ulcer Measurement Start: 02/20/24 14:50 Freq: Status: Active Protocol: Activity Type Activity Date Activity User E-sign Co-sign Detail Recorded Client Recorded Date Recorded By Document 02/20/24 14:51 [facility] [id number] 02/20/24 15:06 [facility] Document 03/05/24 14:16 KW j 03/05/24 14:26 KW Document 03/12/24 15:02 DL [email or web address] 03/12/24 15:10 DL 02/20/24 03/05/24 03/12/24 14:51 14:16 15:02 Wound Center Nurse 1 #1 R post LE- post-op cluster -Combined with other wound No -Current Size (cm) - Length 1.8 2 2 -Current Size (cm) - Width 1.2 1 0.8 -Current Size (cm) - Depth 0.4 0.7 0.7 -Total Square Cm 2.16 2 1.6 -Date of Last Picture (Recall this 02/20/24 03/05/24 field) -Photo Taken Yes -Epithelialization None Present -Tunneling No -Undermining/Tunneling No -Circular Undermining No -Exudate Amt Medium Small Medium -Exudate Type Serosanguineous Serosanguineous Serosanguineous -Wound Margin Distinct, Distinct, Thickened & Outline Outline Rolled Under Attached Attached -Granulation Amt Medium (34-66%) Large (67-100%) Medium (34-66%) -Granulation Quality Pale,[place] -Slough/Fibrin Yes -Necrosis Amt Medium (34-66%) Large (67-100%) Medium (34-66%) -Necrotic Tissue Type Adherent Slough Adherent Slough Adherent Slough -Structure Exposed N/A -Texture (Rachele-wound Skin Appearance) Assessed, Assessed Scarring Scarring -Moisture (Rachele-wound Skin Appearance) Assessed, Assessed No Abnormality Maceration -Color (Rachele-wound Skin Appearance) Assessed Assessed No Abnormality -Temperature (Rachele-wound Skin No Abnormality No Abnormality No Abnormality Appearance) (Pt Warm) (Pt Warm) (Pt Warm) -Tenderness on Palpation (Rachele-wound No No Yes Skin Appearance) -Ulcer Cleansing Soap and Water Soap and Water Soap and Water -Foul Odor after Cleansing No No No -Anesthetic Used 5% Lidocaine 5% Lidocaine 5% Lidocaine Gel Gel Gel Lower Limb Edema Present Yes Right Calf (cm) 68 Right Ankle (cm) 31.6 43 - Nurse 2 - General Ulcer CM Notes Start: 02/20/24 14:50 Freq: Status: Active Protocol: Activity Type Activity Date Activity User E-sign Co-sign Detail Recorded Client Recorded Date Recorded By Document 02/20/24 15:20 [id number] 02/20/24 15:22 Document 03/05/24 14:40 [id number] 03/05/24 14:47 Document 03/12/24 15:23 000 03/12/24 15:25 02/20/24 03/05/24 03/12/24 15:20 14:40 15:23 Wound Center Nurse 2 #1 R post LE- post-op cluster -Time 15:20 14:40 15:23 -Correct Patient Yes Yes Yes -Correct Side, Site, Position Yes Yes Yes -Correct Procedure Yes Yes Yes -Procedure Performed Yes Yes Yes -Type of Procedure Debridement Debridement Debridement -Clinical Debridement Subcutaneous Subcutaneous Subcutaneous -Tissue Removed Subcutaneous Subcutaneous Subcutaneous -Post Debridement (cm) - Length 2.2 2.1 2.0 -Post Debridement (cm) - Width 1.2 1.1 1.2 -Post Debridement (cm) - Depth 0.7 0.5 0.6 -Total Square (Post) (cm) 2.64 2.31 2.40 -Area of Debridement (cm) - Length 2.2 2.1 2.0 -Area of Debridement (cm) - Width 1.2 1.1 1.2 -Total Square (Area) (cm) 2.64 2.31 2.40 -Tunneling No No No -Undermining/Tunneling No No No -Circular Undermining No No No -Wound/Ulcer Outcome Not Healed Not Healed Not Healed -Ulcer Cleansing Rinsed/ Rinsed/ Rinsed/ Irrigated with Irrigated with Irrigated with Saline Saline Saline -Foul Odor after Cleansing No No No -Bioengineered Tissue Yes Yes Yes -Type of Bioengineered Tissue Epicord Epicord Epicord -Expiration Date 09/17/28 09/17/28 07/18/28 -Product Lot Number [id number] -Percent Used 100 100 100 -Lot number of Saline Used [id number] -Bleeding Controlled with Pressure Pressure Pressure -Treatment Response Procedure Procedure Procedure Tolerated Well Tolerated Well Tolerated Well -Offloading No No No -Debridement - Subq, 1st 20sq cm No No No -Apply Skin Sub - 1st 25 sq cm - Legs 1 1 1 -Dermabond 1 -Epicord (per sq cm) 6 6 6 Pain Scale: 0-10 Numeric Is Patient Pain Free? Yes Yes Yes WC - Nurse 3 - General Ulcer D/C NN Start: 02/20/24 14:50 Freq: Status: Active Protocol: Activity Type Activity Date Activity User E-sign Co-sign Detail Recorded Client Recorded Date Recorded By Document 02/20/24 15:45 KW Wound center 02/20/24 15:45 KW Document 02/27/24 13:37 KW wound center 02/27/24 13:38 KW Document 03/05/24 15:10 DL [email or web address] 03/05/24 15:11 DL Document 03/12/24 16:39 KW ; 03/12/24 16:40 KW 02/20/24 02/27/24 03/05/24 15:45 13:37 15:10 Wound Care Center Nurse 3 #1 R post LE- post-op cluster -Ulcer Cleansing Soap and Water -Foul Odor after Cleansing No -Other Dressing epifix/nugel -Primary Dressing Covered/Secured with Dry Gauze & Dry Gauze & Dry Gauze & Roll Gauze, Roll Gauze, Roll Gauze, Secured with Secured with Secured with Tape Tape Tape -Other Covering ABD Right -Multi-Layered Wrap Application Multi-Layer Multi-Layer Multi-Layer Comp - Right ($ Comp - Right ($ Comp - Right ($ ) ) ) Treatment Response Procedure Tolerated Well Vital Signs Temperature (97.8 F-99.1 F) 97.1 F L Temperature Source Temporal Pulse Rate (60-100) 113 H Pulse Location Monitor Respiratory Rate (12-18) 18 Respiratory rate source Observation Oxygen Delivery Method Room Air Blood Pressure (90/60-120/80) 186/94 H Blood Pressure Mean (mm Hg) 124 Source Monitor Position Sitting Blood Pressure Location Left Forearm Pain Scale: 0-10 Numeric Is Patient Pain Free? Yes Yes Yes WC - Visit Discharge Discharge Condition Stable Stable Ambulatory Status Ambulatory Ambulatory Transportation Private Auto Private Auto Medication Reconcilliation completed & No provided to patient/care provider Clinical Summary of Care Provided Yes 03/12/24 16:39 Wound Care Center Nurse 3 #1 R post LE- post-op cluster -Ulcer Cleansing -Foul Odor after Cleansing -Other Dressing -Primary Dressing Covered/Secured with Dry Gauze & Roll Gauze, Secured with Tape -Other Covering Right -Multi-Layered Wrap Application Multi-Layer Comp - Right ($ ) Treatment Response Vital Signs Temperature (97.8 F-99.1 F) Temperature Source Pulse Rate (60-100) Pulse Location Respiratory Rate (12-18) Respiratory rate source Oxygen Delivery Method Blood Pressure (90/60-120/80) Blood Pressure Mean (mm Hg) Source Position Blood Pressure Location Pain Scale: 0-10 Numeric Is Patient Pain Free? 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 All findings were discussed with the patient. All questions were answered to the patient's satisfaction. Excisional debridement down to and including subcutaneous tissue with a number 3 mm dermal curette to the right posterior calf. Predebridement measurement was 1.9 x 1.1 x 0.4 cm. Postdebridement measurement is 2.0 x 1.2 x 0.6 cm. EpiCord 2.0 x 3.0 cm graft was applied to the right posterior calf full- thickness ulceration with 100% use. Seventh application. The graft site was free and clear of any infection. The wound/skin graft substitute was dressed with nonadherent bandage secured in place with Steri-Strips followed by bolster dressing as well as a multilayer 3M compression bandage down to the right lower extremity. Follow-up at the wound care center with Dr. Lord in 1 week. (2) Lymphedema, not elsewhere classified: CODE(S): I89.0 - Lymphedema, not elsewhere classified (3) Acute painful diabetic polyneuropathy: CODE(S): E11.42 - Type 2 diabetes mellitus with diabetic polyneuropathy
== END 2024-03-16 23:59 | disposition home or self-care (01) ==
LOC: WC 14:45
PROVIDERS: PCP Internal Medicine; Referring Provider Internal Medicine; Visit Provider Podiatrist Foot & Ankle Surgery
DX: T81.31XA Disruption of external operation (surgical) wound, not elsewhere classified, initial encounter (principal); L97.212 Non-pressure chronic ulcer of right calf with fat layer exposed; E66.01 Morbid (severe) obesity due to excess calories; E11.42 Type 2 diabetes mellitus with diabetic polyneuropathy; I89.0 Lymphedema, not elsewhere classified; Z79.899 Other long term (current) drug therapy
CPT/HCPCS: 15271; 29581; Q4187

== ENCOUNTER 2024-04-08 13:24 | Outpatient (RCR) | payer MEDICAID, SELFPAY | END 2024-04-16 23:59 | LOC: NS 13:24 | PROVIDERS: PCP Internal Medicine; Referring Provider Podiatrist Foot & Ankle Surgery; Visit Provider Podiatrist Foot & Ankle Surgery | DX: Z71.3 Dietary counseling and surveillance (principal); E66.01 Morbid (severe) obesity due to excess calories; E11.42 Type 2 diabetes mellitus with diabetic polyneuropathy; Z68.44 Body mass index [BMI] 60.0-69.9, adult; L97.912 Non-pressure chronic ulcer of unspecified part of right lower leg with fat layer exposed; Z79.4 Long term (current) use of insulin | CPT/HCPCS: 97802 ==

== ENCOUNTER 2024-04-16 14:30 | Outpatient (RCR) | payer MEDICAID, SELFPAY ==
[2024-03-17 00:43] VITALS: BP 143/85; PULSE 113; RESP 18; TEMP 36.6; BMI 62.5
[2024-03-19 14:42] VITALS: BP 156/85; PULSE 119; RESP 22; TEMP 36.4; BMI 62.5
--- NOTE | 2024-03-19 15:47 | PN.PCM_ITS ---
History of Present Illness Date of Service: 03/19/24 Chief Complaint: Ulceration right posterior leg History of Wound: Ulceration right posterior leg Subjective Subjective Ms. Rodriguez is a 43-year-old diabetic female presenting to the wound care center today for follow-up evaluation of posterior calf full-thickness ulceration. She has kept her wrap clean dry and intact. Her blood sugars under control. She denies smoking. She is not eating any sugary or salty drinks. She denies any pain to the right leg. Denies trauma. Denies constitutional symptoms. No other pedal complaints at this time. Objective Data Objective Data Vital Signs: Vital Signs Temp Pulse Resp BP 97.6 F L 119 H 22 H 156/85 H 03/19/24 14:42 03/19/24 14:42 03/19/24 14:42 03/19/24 14:42 Weight: 160.223 kg Body Mass Index (BMI) 62.5 Physical Exam Narrative Vascular: DP and PT pulses palpable. CFT is brisk. Nonpitting edema appreciated to right lower extremity. No erythema or proximal streaking is appreciated. Neurological: Light touch intact. Patient response to painful stimuli. Dermatological: Full-thickness ulceration measures right calf measuring 2.2 x 1 .0 x 0.6 cm. Wound base is granular nature with sanguinous drainage after debridement. No evidence of erythema or proximal streaking. Evidence of a boil to the distal aspect anterior right leg, healed. EpiFix 2.0 x 2.0 cm graft was applied to the right posterior calf full-thickness ulceration with 100% use. Eighth application. The graft site was free and clear of any infection. The wound/skin graft substitute was dressed with nonadherent bandage secured in place with Steri-Strips followed by bolster dressing as well as a multilayer 3M compression bandage down to the right lower extremity. Musculoskeletal: No pain with calf compression. Mild pain to palpation full- thickness ulceration right calf. Palpable bogginess and flocculence appreciated to the anterior ankle of the right lower extremity at the level of the boil. Debridement Note Debridement Note Post-Debridement Measurements and Additional Note: Post-Debridement Measurements/Treatment PANCHITO - Nurse 1 - General Ulcer Assessment Start: 03/19/24 14:41 Freq: Status: Active Protocol: WATSON Activity Type Activity Date Activity User E-sign Co-sign Detail Recorded Client Recorded Date Recorded By Document 03/19/24 14:42 DL [email or web address] 03/19/24 14:51 DL 03/19/24 14:42 WC - Today's Visit Information Type of service Follow-up Visit (Physician/AUDIO TAPE LIBRARIAN ) Arrival Mode Ambulatory Transfer Assistance None Patient Identification Verified (Name & Yes ) Patient Requires Transmission-Based No Precautions Height and Weight Body Mass Index (BMI) 62.5 BMI Classification Obese Vital Signs Temperature (97.8 F-99.1 F) 97.6 F L Temperature Source Temporal Pulse Rate (60-100) 119 H Pulse Location Monitor Respiratory Rate (12-18) 22 H Respiratory rate source Observation Blood Pressure (90/60-120/80) 156/85 H Blood Pressure Mean (mm Hg) 108 Source Monitor History Since Last Visit- (Skip if this is Patient's initial visit) Have you changed medications since your No last visit? Any new allergies or adverse reactions No Had a fall/change in ADL's that may No increase risk of falls Signs or symptoms of abuse and/or No neglect since last visit Have you been in the hospital since your No last visit? Has dressing in place as prescribed Yes Has compression in place as prescribed Yes Has offloadiing in place as prescribed N/A Experienced any changes in pain level or No management Pain Scale: 0-10 Numeric Is Patient Pain Free? Yes - Nurse 1 - General Ulcer Measurement Start: 03/19/24 14:41 Freq: Status: Active Protocol: Activity Type Activity Date Activity User E-sign Co-sign Detail Recorded Client Recorded Date Recorded By Document 03/19/24 14:42 DL [email or web address] 03/19/24 14:51 DL 03/19/24 14:42 Wound Center Nurse 1 #1 R post LE- post-op cluster -Current Size (cm) - Length 1.7 -Current Size (cm) - Width 0.8 -Current Size (cm) - Depth 0.7 -Total Square Cm 1.36 -Exudate Amt Medium -Exudate Type Serosanguineous -Wound Margin Distinct, Outline Attached -Granulation Amt Small (1-33%) -Granulation Quality [place] -Necrosis Amt Large (67-100%) -Necrotic Tissue Type Adherent Slough -Structure Exposed N/A -Texture (Rachele-wound Skin Appearance) Scarring,Rash -Moisture (Rachele-wound Skin Appearance) No Abnormality -Color (Rachele-wound Skin Appearance) No Abnormality -Temperature (Rahcele-wound Skin No Abnormality Appearance) (Pt Warm) -Tenderness on Palpation (Rachele-wound No Skin Appearance) -Ulcer Cleansing Soap and Water -Anesthetic Used 5% Lidocaine Gel WC - Nurse 2 - General Ulcer CM Notes Start: 03/19/24 14:41 Freq: Status: Active Protocol: Activity Type Activity Date Activity User E-sign Co-sign Detail Recorded Client Recorded Date Recorded By Document 03/19/24 15:15 JF 0000 03/19/24 15:21 JF 03/19/24 15:15 Wound Center Nurse 2 -Time 15:15 -Correct Patient Yes -Correct Side, Site, Position Yes -Correct Procedure Yes -Procedure Performed Yes -Type of Procedure Debridement -Clinical Debridement Subcutaneous -Tissue Removed Subcutaneous -Post Debridement (cm) - Length 2.2 -Post Debridement (cm) - Width 1.0 -Post Debridement (cm) - Depth 0.6 -Total Square (Post) (cm) 2.20 -Area of Debridement (cm) - Length 2.2 -Area of Debridement (cm) - Width 1.0 -Total Square (Area) (cm) 2.20 -Tunneling No -Undermining/Tunneling No -Circular Undermining No -Wound/Ulcer Outcome Not Healed -Ulcer Cleansing Rinsed/ Irrigated with Saline -Foul Odor after Cleansing No -Bioengineered Tissue Yes -Expiration Date 09/17/28 -Product Lot Number [id number] -Percent Used 100 -Lot number of Saline Used [id number] -Bleeding Controlled with Pressure -Treatment Response Procedure Tolerated Well -Offloading No -Debridement - Subq, 1st 20sq cm No -Apply Skin Sub - 1st 25 sq cm - Legs 1 -Epifix (per sq cm) 4 Pain Scale: 0-10 Numeric Is Patient Pain Free? Yes WC - Nurse 3 - General Ulcer D/C NN Start: 03/19/24 14:41 Freq: Status: Active Protocol: Activity Type Activity Date Activity User E-sign Co-sign Detail Recorded Client Recorded Date Recorded By Document 03/19/24 15:24 DL [email or web address] 03/19/24 15:26 DL 03/19/24 15:24 Wound Care Center Nurse 3 #1 R post LE- post-op cluster -Ulcer Cleansing Rinsed/ Irrigated with Saline -Foul Odor after Cleansing No -Other Dressing epifix -Primary Dressing Covered/Secured with Dry Gauze & Roll Gauze, Secured with Tape Right -Multi-Layered Wrap Application Multi-Layer Comp - Right ($ ) Treatment Response Procedure Tolerated Well Pain Scale: 0-10 Numeric Is Patient Pain Free? 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 All findings were discussed with the patient. All questions were answered to the patient's satisfaction. EpiFix 2.0 x 2.0 cm graft was applied to the right posterior calf full-thickness ulceration with 100% use. Eighth application. The graft site was free and clear of any infection. The wound/skin graft substitute was dressed with nonadherent bandage secured in place with Steri-Strips followed by bolster dressing as well as a multilayer 3M compression bandage down to the right lower extremity. Follow-up at the wound care center with Dr. Lord in 1 week. (2) Lymphedema, not elsewhere classified: CODE(S): I89.0 - Lymphedema, not elsewhere classified
[2024-03-21 11:15] VITALS: BP 120/75; PULSE 106; RESP 18; TEMP 36.6; BMI 62.5
[2024-03-26 11:11] VITALS: BP 171/99; PULSE 114; RESP 20; TEMP 36.6; BMI 62.5
--- NOTE | 2024-03-26 12:59 | PCM.WC.PN ---
History of Present Illness Date of Service: 03/26/24 Chief Complaint: Ulceration right posterior leg History of Wound: Ulceration right posterior leg Subjective Subjective Ms. Rodriguez is a 43-year-old diabetic female presenting to the wound care center today for follow-up evaluation of posterior calf full-thickness ulceration. She has kept her wrap clean dry and intact. Her blood sugars under control. She denies smoking. She is not eating any sugary or salty drinks. She denies any pain to the right leg. Denies trauma. Denies constitutional symptoms. No other pedal complaints at this time. Objective Data Objective Data Vital Signs: Vital Signs Temp Pulse Resp BP O2 Del Method 97.9 F 114 H 20 H 171/99 H Room Air 03/26/24 11:11 03/26/24 11:11 03/26/24 11:11 03/26/24 11:11 03/26/24 11:11 Oxygen Delivery Method Room Air Weight: 160.223 kg Body Mass Index (BMI) 62.5 Physical Exam Narrative Vascular: DP and PT pulses palpable. CFT is brisk. Nonpitting edema appreciated to right lower extremity. No erythema or proximal streaking is appreciated. Neurological: Light touch intact. Patient response to painful stimuli. Dermatological: Full-thickness ulceration measures right calf measuring 1.8 x 0.8 x 0.5 cm. Wound base is granular nature with sanguinous drainage after debridement. No evidence of erythema or proximal streaking. Evidence of a boil to the distal aspect anterior right leg, healed. Excisional debridement down to including subcutaneous tissue of the right posterior calf with a number 5 mm dermal curette without incident. Predebridement measurement was 0.7 x 0.5 x 0.4 cm. Postdebridement measurement is 1.8 x 0.8 x 0.5 cm. EpiFix 2.0 x 2.0 cm graft was applied to the right posterior calf full-thickness ulceration with 100% use. Ninth application. The graft site was free and clear of any infection. The wound/skin graft substitute was dressed with nonadherent bandage secured in place with Steri-Strips followed by bolster dressing as well as a multilayer 3M compression bandage down to the right lower extremity. Musculoskeletal: No pain with calf compression. Mild pain to palpation full-thickness ulceration right calf. Palpable bogginess and flocculence appreciated to the anterior ankle of the right lower extremity at the level of the boil. Debridement Note Debridement Note Debridement Free Text: Excisional debridement down to including subcutaneous tissue of the right posterior calf with a number 5 mm dermal curette without incident. Predebridement measurement was 0.7 x 0.5 x 0.4 cm. Postdebridement measurement is 1.8 x 0.8 x 0.5 cm. EpiFix 2.0 x 2.0 cm graft was applied to the right posterior calf full-thickness ulceration with 100% use. Ninth application. The graft site was free and clear of any infection. The wound/skin graft substitute was dressed with nonadherent bandage secured in place with Steri-Strips followed by bolster dressing as well as a multilayer 3M compression bandage down to the right lower extremity. Post-Debridement Measurements and Additional Note: Post-Debridement Measurements/Treatment WC - Nurse 1 - General Ulcer Assessment Start: 03/19/24 14:41 Freq: Status: Active Protocol: WATSON Activity Type Activity Date Activity User E-sign Co-sign Detail Recorded Client Recorded Date Recorded By Document 03/19/24 14:42 DL [email or web address] 03/19/24 14:51 DL Document 03/21/24 11:15 RB [id number] 03/21/24 11:17 RB Document 03/26/24 11:11 GM 03/26/24 11:21 GM 03/19/24 03/21/24 03/26/24 14:42 11:15 11:11 - Today's Visit Information Type of service Follow-up Visit Follow-up Visit Follow-up Visit (Physician/NEURO INTENSIVIST PHYSICIAN (Physician/NEURO INTENSIVIST PHYSICIAN (Physician/NEURO INTENSIVIST PHYSICIAN ) ) ) Arrival Mode Ambulatory Ambulatory Ambulatory Transfer Assistance None None Patient Identification Verified (Name & Yes Yes Yes ) Patient Requires Transmission-Based No No Precautions Height and Weight Body Mass Index (BMI) 62.5 62.5 62.5 BMI Classification Obese Obese Obese Vital Signs Temperature (97.8 F-99.1 F) 97.6 F L 97.8 F 97.9 F Temperature Source Temporal Temporal Temporal Pulse Rate (60-100) 119 H 106 H 114 H Pulse Location Monitor Monitor Monitor Respiratory Rate (12-18) 22 H 18 20 H Respiratory rate source Observation Observation Observation Oxygen Delivery Method Room Air Blood Pressure (90/60-120/80) 156/85 H 120/75 171/99 H Blood Pressure Mean (mm Hg) 108 90 123 Source Monitor Monitor Monitor Position Semi-Fowlers Sitting Blood Pressure Location Left Arm Left Forearm History Since Last Visit- (Skip if this is Patient's initial visit) Have you changed medications since your No No No last visit? Any new allergies or adverse reactions No No No Had a fall/change in ADL's that may No No No increase risk of falls Signs or symptoms of abuse and/or No No No neglect since last visit Have you been in the hospital since your No No No last visit? Has dressing in place as prescribed Yes Yes Yes Has compression in place as prescribed Yes Yes Yes Has offloadiing in place as prescribed N/A No N/A Experienced any changes in pain level or No No No management Pain Scale: 0-10 Numeric Is Patient Pain Free? Yes Yes Yes WC - Nurse 1 - General Ulcer Measurement Start: 03/19/24 14:41 Freq: Status: Active Protocol: Activity Type Activity Date Activity User E-sign Co-sign Detail Recorded Client Recorded Date Recorded By Document 03/19/24 14:42 DL [email or web address] 03/19/24 14:51 DL Document 03/21/24 11:15 RB [id number] 03/21/24 11:17 RB Document 03/26/24 11:11 GM 03/26/24 11:21 GM 03/19/24 03/21/24 03/26/24 14:42 11:15 11:11 Wound Center Nurse 1 #1 R post LE- post-op cluster -Current Size (cm) - Length 1.7 1.0 -Current Size (cm) - Width 0.8 0.5 -Current Size (cm) - Depth 0.7 0.9 -Total Square Cm 1.36 0.50 -Photo Taken No -Epithelialization Small 1-33% -Tunneling No -Undermining/Tunneling No -Circular Undermining No -Exudate Amt Medium Medium -Exudate Type Serosanguineous Yellow/Green -Wound Margin Distinct, Distinct, Outline Outline Attached Attached -Granulation Amt Small (1-33%) Small (1-33%) -Granulation Quality Mulga Pale -Slough/Fibrin Yes -Necrosis Amt Large (67-100%) Medium (34-66%) -Necrotic Tissue Type Adherent Slough Adherent Slough -Structure Exposed N/A -Texture (Rachele-wound Skin Appearance) Scarring,Rash Assessed -Moisture (Rachele-wound Skin Appearance) No Abnormality Assessed -Color (Rachele-wound Skin Appearance) No Abnormality Assessed -Temperature (Rachele-wound Skin No Abnormality No Abnormality Appearance) (Pt Warm) (Pt Warm) -Tenderness on Palpation (Rachele-wound No Skin Appearance) -Ulcer Cleansing Soap and Water Soap and Water -Foul Odor after Cleansing No -Anesthetic Used 5% Lidocaine 5% Lidocaine Gel Gel Lower Limb Edema Present Yes Right Calf (cm) 64.2 64 Right Ankle (cm) 32 44 Left Calf (cm) 58.5 Left Ankle (cm) 33.7 WC - Nurse 2 - General Ulcer CM Notes Start: 03/19/24 14:41 Freq: Status: Active Protocol: Activity Type Activity Date Activity User E-sign Co-sign Detail Recorded Client Recorded Date Recorded By Document 03/19/24 15:15 0000 03/19/24 15:21 Document 03/26/24 11:44 000 03/26/24 11:51 03/19/24 03/26/24 15:15 11:44 Wound Center Nurse 2 #1 R post LE- post-op cluster -Time 15:15 11:44 -Correct Patient Yes Yes -Correct Side, Site, Position Yes Yes -Correct Procedure Yes Yes -Procedure Performed Yes Yes -Type of Procedure Debridement Debridement -Clinical Debridement Subcutaneous Subcutaneous -Tissue Removed Subcutaneous Subcutaneous -Post Debridement (cm) - Length 2.2 -Post Debridement (cm) - Width 1.0 -Post Debridement (cm) - Depth 0.6 -Total Square (Post) (cm) 2.20 -Area of Debridement (cm) - Length 2.2 -Area of Debridement (cm) - Width 1.0 -Total Square (Area) (cm) 2.20 -Tunneling No No -Undermining/Tunneling No No -Circular Undermining No No -Wound/Ulcer Outcome Not Healed Not Healed -Ulcer Cleansing Rinsed/ Rinsed/ Irrigated with Irrigated with Saline Saline -Foul Odor after Cleansing No No -Bioengineered Tissue Yes Yes -Type of Bioengineered Tissue Epifix -Expiration Date 09/17/28 09/17/28 -Product Lot Number [id number] -Percent Used 100 100 -Lot number of Saline Used [id number] -Bleeding Controlled with Pressure Pressure -Treatment Response Procedure Procedure Tolerated Well Tolerated Well -Offloading No No -Debridement - Subq, 1st 20sq cm No No -Apply Skin Sub - 1st 25 sq cm - Legs 1 1 -Epifix (per sq cm) 4 4 Pain Scale: 0-10 Numeric Is Patient Pain Free? Yes Yes - Nurse 3 - General Ulcer D/C NN Start: 03/19/24 14:41 Freq: Status: Active Protocol: Activity Type Activity Date Activity User E-sign Co-sign Detail Recorded Client Recorded Date Recorded By Document 03/19/24 15:24 DL [email or web address] 03/19/24 15:26 DL Document 03/21/24 11:15 RB [id number] 03/21/24 11:17 RB Document 03/26/24 11:53 GM 03/26/24 11:54 GM 03/19/24 03/21/24 03/26/24 15:24 11:15 11:53 Wound Care Center Nurse 3 #1 R post LE- post-op cluster -Ulcer Cleansing Rinsed/ Not Cleansed Irrigated with Saline -Foul Odor after Cleansing No No -Other Dressing epifix ABD abd -Primary Dressing Covered/Secured with Dry Gauze & Dry Gauze & Roll Gauze, Roll Gauze, Secured with Secured with Tape Tape Left -Tubular Bandage Single Layer -Size of Tubigrip Used Size F -Size F ($) 1 Right -Lotion applied to leg before No compression wrap -Multi-Layered Wrap Application Multi-Layer Multi-Layer Multi-Layer Comp - Right ($ Comp - Right ($ Comp - Right ($ ) ) ) Treatment Response Procedure Procedure Tolerated Well Tolerated Well Vital Signs Temperature (97.8 F-99.1 F) 97.8 F Temperature Source Temporal Pulse Rate (60-100) 106 H Pulse Location Monitor Respiratory Rate (12-18) 18 Respiratory rate source Observation Blood Pressure (90/60-120/80) 120/75 Blood Pressure Mean (mm Hg) 90 Source Monitor Position Semi-Fowlers Blood Pressure Location Left Arm Pain Scale: 0-10 Numeric Is Patient Pain Free? Yes Yes Yes - Visit Discharge Discharge Condition Stable Stable Ambulatory Status Ambulatory Ambulatory Ambulatory Transportation Private Auto Private Auto Private Auto Medication Reconcilliation completed & No provided to patient/care provider Clinical Summary of Care Provided Yes Yes Assessment/Plan Assessment/Plan (1) Non-pressure chronic ulcer of unspecified part of 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 All findings were discussed with the patient. All questions were answered to the patient's satisfaction. Excisional debridement down to including subcutaneous tissue of the right posterior calf with a number 5 mm dermal curette without incident. Predebridement measurement was 0.7 x 0.5 x 0.4 cm. Postdebridement measurement is 1.8 x 0.8 x 0.5 cm. EpiFix 2.0 x 2.0 cm graft was applied to the right posterior calf full-thickness ulceration with 100% use. Ninth application. The graft site was free and clear of any infection. The wound/skin graft substitute was dressed with nonadherent bandage secured in place with Steri-Strips followed by bolster dressing as well as a multilayer 3M compression bandage down to the right lower extremity. Follow-up at the wound care center with Dr. Lord in 1 week. (2) Lymphedema, not elsewhere classified: CODE(S): I89.0 - Lymphedema, not elsewhere classified
[2024-04-02 10:21] VITALS: BP 162/94; PULSE 106; RESP 22; TEMP 36.6; BMI 62.5
--- NOTE | 2024-04-02 12:16 | PN.PCM_ITS ---
History of Present Illness Date of Service: 04/02/24 Chief Complaint: Ulceration right posterior leg History of Wound: Ulceration right posterior leg Subjective Subjective Ms. Rodriguez is a 43-year-old diabetic female presenting to the wound care center today for follow-up evaluation of posterior calf full-thickness ulceration. She has kept her wrap clean dry and intact. Her blood sugars under control. She denies smoking. She is not eating any sugary or salty drinks. She denies any pain to the right leg. Denies trauma. Denies constitutional symptoms. No other pedal complaints at this time. Objective Data Objective Data Vital Signs: Vital Signs Temp Pulse Resp BP O2 Del Method 98 F 106 H 22 H 162/94 H Room Air 04/02/24 10:21 04/02/24 10:21 04/02/24 10:04/02/24 10:03/26/24 11:11 Oxygen Delivery Method Room Air Weight: 160.223 kg Body Mass Index (BMI) 62.5 Physical Exam Narrative Vascular: DP and PT pulses palpable. CFT is brisk. Nonpitting edema appreciated to right lower extremity. No erythema or proximal streaking is appreciated. Neurological: Light touch intact. Patient response to painful stimuli. Dermatological: Full-thickness ulceration measures right calf measuring 1.8 x 0.8 x 0.5 cm. Wound base is granular nature with sanguinous drainage after debridement. No evidence of erythema or proximal streaking. Evidence of a boil to the distal aspect anterior right leg, healed. Excisional debridement down to including subcutaneous tissue of the right posterior calf with a number 5 mm dermal curette without incident. Predebridement measurement was 1.7 x 0.8 x 0.4 cm. Postdebridement measurement is 1.8 x 0.9 x 0.5 cm. EpiFix 2.0 x 2.0 cm graft was applied to the right posterior calf full-thickness ulceration with 100% use. 10th application. The graft site was free and clear of any infection. The wound/skin graft substitute was dressed with nonadherent bandage secured in place with Steri-Strips followed by bolster dressing as well as a multilayer 3M compression bandage down to the right lower extremity. Musculoskeletal: No pain with calf compression. Mild pain to palpation full- thickness ulceration right calf. l. Debridement Note Debridement Note Debridement Free Text: Excisional debridement down to including subcutaneous tissue of the right posterior calf with a number 5 mm dermal curette without incident. Predebridement measurement was 1.7 x 0.8 x 0.4 cm. Postdebridement measurement is 1.8 x 0.9 x 0.5 cm. EpiFix 2.0 x 2.0 cm graft was applied to the right posterior calf full-thickness ulceration with 100% use. 10th application. The graft site was free and clear of any infection. The wound/skin graft substitute was dressed with nonadherent bandage secured in place with Steri-Strips followed by bolster dressing as well as a multilayer 3M compression bandage down to the right lower extremity. Post-Debridement Measurements and Additional Note: Post-Debridement Measurements/Treatment - Nurse 1 - General Ulcer Assessment Start: 03/19/24 14:41 Freq: Status: Active Protocol: WC.LOWEXT Activity Type Activity Date Activity User E-sign Co-sign Detail Recorded Client Recorded Date Recorded By Document 03/19/24 14:42 DL [id number] 03/19/24 14:51 DL Document 03/21/24 11:15 RB [id number] 03/21/24 11:17 RB Document 03/26/24 11:11 [facility] 03/26/24 11:21 Document 04/02/24 10:21 [id number] 04/02/24 10:27 [place] 03/19/24 03/21/24 03/26/24 14:42 11:15 11:11 - Today's Visit Information Type of service Follow-up Visit Follow-up Visit Follow-up Visit (Physician/SALES AND SERVICE CHANGE LEADER (Physician/SALES AND SERVICE CHANGE LEADER (Physician/SALES AND SERVICE CHANGE LEADER ) ) ) Arrival Mode Ambulatory Ambulatory Ambulatory Transfer Assistance None None Accompanied by Patient Identification Verified (Name & Yes Yes Yes ) Patient Requires Transmission-Based No No Precautions Safety Precautions Height and Weight Body Mass Index (BMI) 62.5 62.5 62.5 BMI Classification Obese Obese Obese Vital Signs Temperature (97.8 F-99.1 F) 97.6 F L 97.8 F 97.9 F Temperature Source Temporal Temporal Temporal Pulse Rate (60-100) 119 H 106 H 114 H Pulse Location Monitor Monitor Monitor Respiratory Rate (12-18) 22 H 18 20 H Respiratory rate source Observation Observation Observation Oxygen Delivery Method Room Air Blood Pressure (90/60-120/80) 156/85 H 120/75 171/99 H Blood Pressure Mean (mm Hg) 108 90 123 Source Monitor Monitor Monitor Position Semi-Fowlers Sitting Blood Pressure Location Left Arm Left Forearm History Since Last Visit- (Skip if this is Patient's initial visit) Have you changed medications since your No No No last visit? Any new allergies or adverse reactions No No No Had a fall/change in ADL's that may No No No increase risk of falls Signs or symptoms of abuse and/or No No No neglect since last visit Have you been in the hospital since your No No No last visit? Has dressing in place as prescribed Yes Yes Yes Has compression in place as prescribed Yes Yes Yes Has offloadiing in place as prescribed N/A No N/A Experienced any changes in pain level or No No No management Left Footwear Right Footwear Pain Scale: 0-10 Numeric Is Patient Pain Free? Yes Yes Yes 04/02/24 10:21 WC - Today's Visit Information Type of service Follow-up Visit (Physician/SALES AND SERVICE CHANGE LEADER ) Arrival Mode Ambulatory Transfer Assistance Accompanied by SELF Patient Identification Verified (Name & Yes ) Patient Requires Transmission-Based Precautions Safety Precautions Fall Prevention Height and Weight Body Mass Index (BMI) 62.5 BMI Classification Obese Vital Signs Temperature (97.8 F-99.1 F) 98 F Temperature Source Temporal Pulse Rate (60-100) 106 H Pulse Location Monitor Respiratory Rate (12-18) 22 H Respiratory rate source Observation Oxygen Delivery Method Blood Pressure (90/60-120/80) 162/94 H Blood Pressure Mean (mm Hg) 116 Source Monitor Position Sitting Blood Pressure Location Left Forearm History Since Last Visit- (Skip if this is Patient's initial visit) Have you changed medications since your last visit? Any new allergies or adverse reactions Had a fall/change in ADL's that may increase risk of falls Signs or symptoms of abuse and/or neglect since last visit Have you been in the hospital since your last visit? Has dressing in place as prescribed Yes Has compression in place as prescribed Yes Has offloadiing in place as prescribed Yes Experienced any changes in pain level or Yes management Left Footwear Slipper Right Footwear Slipper Pain Scale: 0-10 Numeric Is Patient Pain Free? Yes - Nurse 1 - General Ulcer Measurement Start: 03/19/24 14:41 Freq: Status: Active Protocol: Activity Type Activity Date Activity User E-sign Co-sign Detail Recorded Client Recorded Date Recorded By Document 03/19/24 14:42 DL 10..25.7 03/19/24 14:51 DL Document 03/21/24 11:15 RB [id number] 03/21/24 11:17 RB Document 03/26/24 11:11 [facility] 03/26/24 11:21 Document 04/02/24 10:21 [id number] 04/02/24 10:27 [facility] 03/19/24 03/21/24 03/26/24 14:42 11:15 11:11 Wound Center Nurse 1 #1 R post LE- post-op cluster -Current Size (cm) - Length 1.7 1.0 -Current Size (cm) - Width 0.8 0.5 -Current Size (cm) - Depth 0.7 0.9 -Total Square Cm 1.36 0.50 -Photo Taken No -Epithelialization Small 1-33% -Tunneling No -Undermining/Tunneling No -Circular Undermining No -Exudate Amt Medium Medium -Exudate Type Serosanguineous Yellow/Green -Wound Margin Distinct, Distinct, Outline Outline Attached Attached -Granulation Amt Small (1-33%) Small (1-33%) -Granulation Quality [place] Pale -Slough/Fibrin Yes -Necrosis Amt Large (67-100%) Medium (34-66%) -Necrotic Tissue Type Adherent Slough Adherent Slough -Structure Exposed N/A -Texture (Rachele-wound Skin Appearance) Scarring,Rash Assessed -Moisture (Rachele-wound Skin Appearance) No Abnormality Assessed -Color (Rachele-wound Skin Appearance) No Abnormality Assessed -Temperature (Rachele-wound Skin No Abnormality No Abnormality Appearance) (Pt Warm) (Pt Warm) -Tenderness on Palpation (Rachele-wound No Skin Appearance) -Ulcer Cleansing Soap and Water Soap and Water -Foul Odor after Cleansing No -Anesthetic Used 5% Lidocaine 5% Lidocaine Gel Gel Lower Limb Edema Present Yes Right Calf (cm) 64.2 64 Right Ankle (cm) 32 44 Left Calf (cm) 58.5 Left Ankle (cm) 33.7 04/02/24 10:21 Wound Center Nurse 1 #1 R post LE- post-op cluster -Current Size (cm) - Length 1.4 -Current Size (cm) - Width 1.0 -Current Size (cm) - Depth 0.4 -Total Square Cm 1.40 -Photo Taken -Epithelialization -Tunneling -Undermining/Tunneling -Circular Undermining -Exudate Amt Medium -Exudate Type Serosanguineous -Wound Margin Thickened & Rolled Under -Granulation Amt Medium (34-66%) -Granulation Quality Pale,[place] -Slough/Fibrin -Necrosis Amt Medium (34-66%) -Necrotic Tissue Type Adherent Slough -Structure Exposed -Texture (Rachele-wound Skin Appearance) Assessed -Moisture (Rachele-wound Skin Appearance) Assessed -Color (Rachele-wound Skin Appearance) Assessed -Temperature (Rachele-wound Skin No Abnormality Appearance) (Pt Warm) -Tenderness on Palpation (Rachele-wound No Skin Appearance) -Ulcer Cleansing Soap and Water -Foul Odor after Cleansing No -Anesthetic Used 5% Lidocaine Gel Lower Limb Edema Present Right Calf (cm) 61.5 Right Ankle (cm) 33 Left Calf (cm) Left Ankle (cm) WC - Nurse 2 - General Ulcer CM Notes Start: 03/19/24 14:41 Freq: Status: Active Protocol: Activity Type Activity Date Activity User E-sign Co-sign Detail Recorded Client Recorded Date Recorded By Document 03/19/24 15:15 0000 03/19/24 15:21 Document 03/26/24 11:44 000 03/26/24 11:51 Document 04/02/24 10:55 [facility] 04/02/24 11:04 03/19/24 03/26/24 04/02/24 15:15 11:44 10:55 Wound Center Nurse 2 #1 R post LE- post-op cluster -Time 15:15 11:44 10:55 -Correct Patient Yes Yes Yes -Correct Side, Site, Position Yes Yes Yes -Correct Procedure Yes Yes Yes -Procedure Performed Yes Yes Yes -Type of Procedure Debridement Debridement Debridement -Clinical Debridement Subcutaneous Subcutaneous Subcutaneous -Tissue Removed Subcutaneous Subcutaneous Subcutaneous -Post Debridement (cm) - Length 2.2 1.8 -Post Debridement (cm) - Width 1.0 0.9 -Post Debridement (cm) - Depth 0.6 0.5 -Total Square (Post) (cm) 2.20 1.62 -Area of Debridement (cm) - Length 2.2 1.8 -Area of Debridement (cm) - Width 1.0 0.9 -Total Square (Area) (cm) 2.20 1.62 -Tunneling No No No -Undermining/Tunneling No No No -Circular Undermining No No No -Wound/Ulcer Outcome Not Healed Not Healed Not Healed -Ulcer Cleansing Rinsed/ Rinsed/ Rinsed/ Irrigated with Irrigated with Irrigated with Saline Saline Saline -Foul Odor after Cleansing No No No -Bioengineered Tissue Yes Yes Yes -Type of Bioengineered Tissue Epifix Epifix -Expiration Date 09/17/28 09/17/28 10/18/28 -Product Lot Number [id number] -Percent Used 100 100 100 -Lot number of Saline Used [id number] -Bleeding Controlled with Pressure Pressure Pressure -Treatment Response Procedure Procedure Procedure Tolerated Well Tolerated Well Tolerated Well -Offloading No No -Debridement - Subq, 1st 20sq cm No No No -Apply Skin Sub - 1st 25 sq cm - Legs 1 1 1 -Epifix (per sq cm) 4 4 4 Pain Scale: 0-10 Numeric Is Patient Pain Free? Yes Yes Yes - Nurse 3 - General Ulcer D/C NN Start: 03/19/24 14:41 Freq: Status: Active Protocol: Activity Type Activity Date Activity User E-sign Co-sign Detail Recorded Client Recorded Date Recorded By Document 03/19/24 15:24 DL 10.10.25.7 03/19/24 15:26 DL Document 03/21/24 11:15 RB [id number] 03/21/24 11:17 RB Document 03/26/24 11:53 [facility] 03/26/24 11:54 Document 04/02/24 11:08 [id number] 04/02/24 11:14 [place] 03/19/24 03/21/24 03/26/24 15:24 11:15 11:53 Wound Care Center Nurse 3 #1 R post LE- post-op cluster -Ulcer Cleansing Rinsed/ Not Cleansed Irrigated with Saline -Foul Odor after Cleansing No No -Other Dressing epifix ABD abd -Primary Dressing Covered/Secured with Dry Gauze & Dry Gauze & Roll Gauze, Roll Gauze, Secured with Secured with Tape Tape Left -Tubular Bandage Single Layer -Size of Tubigrip Used Size F -Size F ($) 1 Right -Lotion applied to leg before No compression wrap -Multi-Layered Wrap Application Multi-Layer Multi-Layer Multi-Layer Comp - Right ($ Comp - Right ($ Comp - Right ($ ) ) ) Treatment Response Procedure Procedure Tolerated Well Tolerated Well Vital Signs Temperature (97.8 F-99.1 F) 97.8 F Temperature Source Temporal Pulse Rate (60-100) 106 H Pulse Location Monitor Respiratory Rate (12-18) 18 Respiratory rate source Observation Blood Pressure (90/60-120/80) 120/75 Blood Pressure Mean (mm Hg) 90 Source Monitor Position Semi-Fowlers Blood Pressure Location Left Arm Pain Scale: 0-10 Numeric Is Patient Pain Free? Yes Yes Yes WC - Visit Discharge Discharge Condition Stable Stable Ambulatory Status Ambulatory Ambulatory Ambulatory Transportation Private Auto Private Auto Private Auto Medication Reconcilliation completed & No provided to patient/care provider Clinical Summary of Care Provided Yes Yes 04/02/24 11:08 Wound Care Center Nurse 3 #1 R post LE- post-op cluster -Ulcer Cleansing -Foul Odor after Cleansing -Other Dressing ABD -Primary Dressing Covered/Secured with Left -Tubular Bandage -Size of Tubigrip Used -Size F ($) Right -Lotion applied to leg before compression wrap -Multi-Layered Wrap Application Multi-Layer Comp - Right ($ ) Treatment Response Vital Signs Temperature (97.8 F-99.1 F) Temperature Source Pulse Rate (60-100) Pulse Location Respiratory Rate (12-18) Respiratory rate source Blood Pressure (90/60-120/80) Blood Pressure Mean (mm Hg) Source Position Blood Pressure Location Pain Scale: 0-10 Numeric Is Patient Pain Free? 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 All findings were discussed with the patient. All questions were answered to the patient's satisfaction. Excisional debridement down to including subcutaneous tissue of the right posterior calf with a number 5 mm dermal curette without incident. Predebridement measurement was 1.7 x 0.8 x 0.4 cm. Postdebridement measurement is 1.8 x 0.9 x 0.5 cm. EpiFix 2.0 x 2.0 cm graft was applied to the right posterior calf full-thickness ulceration with 100% use. 10th application. The graft site was free and clear of any infection. The wound/skin graft substitute was dressed with nonadherent bandage secured in place with Steri-Strips followed by bolster dressing as well as a multilayer 3M compression bandage down to the right lower extremity. Follow-up at the wound care center with Dr. Lord in 1 week. (2) Lymphedema, not elsewhere classified: CODE(S): I89.0 - Lymphedema, not elsewhere classified
[2024-04-04 11:38] VITALS: BP 162/94; PULSE 106; RESP 18; TEMP 36.1; BMI 62.5
[2024-04-09 09:56] VITALS: BP 169/97; PULSE 115; RESP 20; TEMP 36.1; BMI 62.5
--- NOTE | 2024-04-09 11:47 | PN.PCM_ITS ---
History of Present Illness Date of Service: 04/09/24 Chief Complaint: Ulceration right posterior leg History of Wound: Ulceration right posterior leg Subjective Subjective Ms. Rodriguez is a 43-year-old diabetic female presenting to the wound care center today for follow-up evaluation of posterior calf full-thickness ulceration. She has kept her wrap clean dry and intact. Her blood sugars under control. She denies smoking. She is not eating any sugary or salty drinks. She denies any pain to the right leg. Denies trauma. Denies constitutional symptoms. No other pedal complaints at this time. Objective Data Objective Data Vital Signs: Vital Signs Temp Pulse Resp BP O2 Del Method 96.9 F L 115 H 20 H 169/97 H Room Air 04/09/24 09:56 04/09/24 09:56 04/09/24 09:56 04/09/24 09:56 03/26/24 11:11 Oxygen Delivery Method Room Air Weight: 160.223 kg Body Mass Index (BMI) 62.5 Physical Exam Narrative Vascular: DP and PT pulses palpable. CFT is brisk. Nonpitting edema appreciated to right lower extremity. No erythema or proximal streaking is appreciated. Neurological: Light touch intact. Patient response to painful stimuli. Dermatological: Full-thickness ulceration measures right calf measuring 2.0 x 1. 2 x 0.6 cm. Wound base is granular nature with sanguinous drainage after debridement. No evidence of erythema or proximal streaking. Excisional debridement down to including subcutaneous tissue of the right posterior calf with a number 5 mm dermal curette without incident. Predebridement measurement was 1.9 x 1.1 x 0.5 cm. Postdebridement measurement is 2.0 x 1.2 x 0.6 cm. Musculoskeletal: No pain with calf compression. Mild pain to palpation full- thickness ulceration right calf. Debridement Note Debridement Note Debridement Free Text: Excisional debridement down to including subcutaneous tissue of the right posterior calf with a number 5 mm dermal curette without incident. Predebridement measurement was 1.9 x 1.1 x 0.5 cm. Postdebridement measurement is 2.0 x 1.2 x 0.6 cm. Post-Debridement Measurements and Additional Note: Post-Debridement Measurements/Treatment WC - Nurse 1 - General Ulcer Assessment Start: 03/19/24 14:41 Freq: Status: Active Protocol: WC.LOWEXT Activity Type Activity Date Activity User E-sign Co-sign Detail Recorded Client Recorded Date Recorded By Document 03/19/24 14:42 DL [id number] 03/19/24 14:51 DL Document 03/21/24 11:15 RB [id number] 03/21/24 11:17 RB Document 03/26/24 11:11 GM wc 03/26/24 11:21 GM Document 04/02/24 10:21 MT [id number] 04/02/24 10:27 MT Document 04/04/24 11:38 RB wound 04/04/24 11:40 RB Document 04/09/24 09:56 CP 04/09/24 10:14 CP 03/19/24 03/21/24 03/26/24 14:42 11:15 11:11 WC - Today's Visit Information Type of service Follow-up Visit Follow-up Visit Follow-up Visit (Physician/FOUNDRY EQUIPMENT MECHANIC (Physician/FOUNDRY EQUIPMENT MECHANIC (Physician/FOUNDRY EQUIPMENT MECHANIC ) ) ) Arrival Mode Ambulatory Ambulatory Ambulatory Transfer Assistance None None Accompanied by Patient Identification Verified (Name & Yes Yes Yes ) Patient Requires Transmission-Based No No Precautions Safety Precautions Finger Stick Blood Sugar(mg/dl) (if indicated): Blood Sugar Height and Weight Body Mass Index (BMI) 62.5 62.5 62.5 BMI Classification Obese Obese Obese Vital Signs Temperature (97.8 F-99.1 F) 97.6 F L 97.8 F 97.9 F Temperature Source Temporal Temporal Temporal Pulse Rate (60-100) 119 H 106 H 114 H Pulse Location Monitor Monitor Monitor Respiratory Rate (12-18) 22 H 18 20 H Respiratory rate source Observation Observation Observation Oxygen Delivery Method Room Air Blood Pressure (90/60-120/80) 156/85 H 120/75 171/99 H Blood Pressure Mean (mm Hg) 108 90 123 Source Monitor Monitor Monitor Position Semi-Fowlers Sitting Blood Pressure Location Left Arm Left Forearm History Since Last Visit- (Skip if this is Patient's initial visit) Have you changed medications since your No No No last visit? Any new allergies or adverse reactions No No No Had a fall/change in ADL's that may No No No increase risk of falls Signs or symptoms of abuse and/or No No No neglect since last visit Have you been in the hospital since your No No No last visit? Has dressing in place as prescribed Yes Yes Yes Has compression in place as prescribed Yes Yes Yes Has offloadiing in place as prescribed N/A No N/A Experienced any changes in pain level or No No No management Left Footwear Right Footwear Pain Scale: 0-10 Numeric Is Patient Pain Free? Yes Yes Yes 04/02/24 04/04/24 04/09/24 10:21 11:38 09:56 WC - Today's Visit Information Type of service Follow-up Visit Nurse-only Follow-up Visit (Physician/FOUNDRY EQUIPMENT MECHANIC Visit (Physician/FOUNDRY EQUIPMENT MECHANIC ) ) Arrival Mode Ambulatory Ambulatory Ambulatory Transfer Assistance None Accompanied by SELF Patient Identification Verified (Name & Yes Yes Yes ) Patient Requires Transmission-Based No No Precautions Safety Precautions Fall Prevention Finger Stick Blood Sugar(mg/dl) (if 297 indicated): Blood Sugar Stated by Patient Height and Weight Body Mass Index (BMI) 62.5 62.5 62.5 BMI Classification Obese Obese Obese Vital Signs Temperature (97.8 F-99.1 F) 98 F 97 F L 96.9 F L Temperature Source Temporal Temporal Temporal Pulse Rate (60-100) 106 H 106 H 115 H Pulse Location Monitor Monitor Monitor Respiratory Rate (12-18) 22 H 18 20 H Respiratory rate source Observation Observation Observation Oxygen Delivery Method Blood Pressure (90/60-120/80) 162/94 H 162/94 H 169/97 H Blood Pressure Mean (mm Hg) 116 116 121 Source Monitor Monitor Monitor Position Sitting Semi-Fowlers Sitting Blood Pressure Location Left Forearm Left Arm Left Forearm History Since Last Visit- (Skip if this is Patient's initial visit) Have you changed medications since your No Yes last visit? Any new allergies or adverse reactions No No Had a fall/change in ADL's that may No No increase risk of falls Signs or symptoms of abuse and/or No No neglect since last visit Have you been in the hospital since your No No last visit? Has dressing in place as prescribed Yes Yes Yes Has compression in place as prescribed Yes Yes Yes Has offloadiing in place as prescribed Yes No Experienced any changes in pain level or Yes No management Left Footwear Slipper Slipper Right Footwear Slipper Slipper Pain Scale: 0-10 Numeric Is Patient Pain Free? Yes Yes No - Nurse 1 - General Ulcer Measurement Start: 03/19/24 14:41 Freq: Status: Active Protocol: Activity Type Activity Date Activity User E-sign Co-sign Detail Recorded Client Recorded Date Recorded By Document 03/19/24 14:42 DL [email or web address] 03/19/24 14:51 DL Document 03/21/24 11:15 RB [id number] 03/21/24 11:17 RB Document 03/26/24 11:11 GM wc 03/26/24 11:21 GM Document 04/02/24 10:21 IA [id number] 04/02/24 10:27 MT Document 04/04/24 11:38 RB wound 04/04/24 11:40 RB Document 04/09/24 09:56 CP 04/09/24 10:14 CP 03/19/24 03/21/24 03/26/24 14:42 11:15 11:11 Wound Center Nurse 1 #1 R post LE- post-op cluster -Current Size (cm) - Length 1.7 1.0 -Current Size (cm) - Width 0.8 0.5 -Current Size (cm) - Depth 0.7 0.9 -Total Square Cm 1.36 0.50 -Photo Taken No -Epithelialization Small 1-33% -Tunneling No -Undermining/Tunneling No -Circular Undermining No -Exudate Amt Medium Medium -Exudate Type Serosanguineous Yellow/Green -Wound Margin Distinct, Distinct, Outline Outline Attached Attached -Granulation Amt Small (1-33%) Small (1-33%) -Granulation Quality Hildreth Pale -Slough/Fibrin Yes -Necrosis Amt Large (67-100%) Medium (34-66%) -Necrotic Tissue Type Adherent Slough Adherent Slough -Structure Exposed N/A -Texture (Rachele-wound Skin Appearance) Scarring,Rash Assessed -Moisture (Rachele-wound Skin Appearance) No Abnormality Assessed -Color (Rachele-wound Skin Appearance) No Abnormality Assessed -Temperature (Rachele-wound Skin No Abnormality No Abnormality Appearance) (Pt Warm) (Pt Warm) -Tenderness on Palpation (Rachele-wound No Skin Appearance) -Ulcer Cleansing Soap and Water Soap and Water -Foul Odor after Cleansing No -Anesthetic Used 5% Lidocaine 5% Lidocaine Gel Gel Lower Limb Edema Present Yes Right Calf (cm) 64.2 64 Right Ankle (cm) 32 44 Left Calf (cm) 58.5 Left Ankle (cm) 33.7 04/02/24 04/04/24 04/09/24 10:21 11:38 09:56 Wound Center Nurse 1 #1 R post LE- post-op cluster -Current Size (cm) - Length 1.4 1.3 -Current Size (cm) - Width 1.0 0.7 -Current Size (cm) - Depth 0.4 0.6 -Total Square Cm 1.40 0.91 -Photo Taken -Epithelialization Small 1-33% -Tunneling No -Undermining/Tunneling No -Circular Undermining -Exudate Amt Medium Small -Exudate Type Serosanguineous Serosanguineous -Wound Margin Thickened & Flat & Intact Rolled Under -Granulation Amt Medium (34-66%) Small (1-33%) -Granulation Quality Pale,Hildreth Hildreth -Slough/Fibrin -Necrosis Amt Medium (34-66%) Medium (34-66%) -Necrotic Tissue Type Adherent Slough Adherent Slough -Structure Exposed N/A -Texture (Rachele-wound Skin Appearance) Assessed No Abnormality -Moisture (Rachele-wound Skin Appearance) Assessed No Abnormality -Color (Rachele-wound Skin Appearance) Assessed No Abnormality -Temperature (Rachele-wound Skin No Abnormality No Abnormality Appearance) (Pt Warm) (Pt Warm) -Tenderness on Palpation (Rachele-wound No No Skin Appearance) -Ulcer Cleansing Soap and Water Soap and Water -Foul Odor after Cleansing No No -Anesthetic Used 5% Lidocaine 5% Lidocaine Gel Gel Lower Limb Edema Present Yes Right Calf (cm) 61.5 66.5 61 Right Ankle (cm) 33 32 35.5 Left Calf (cm) Left Ankle (cm) - Nurse 2 - General Ulcer CM Notes Start: 03/19/24 14:41 Freq: Status: Active Protocol: Activity Type Activity Date Activity User E-sign Co-sign Detail Recorded Client Recorded Date Recorded By Document 03/19/24 15:15 0000 03/19/24 15:21 Document 03/26/24 11:44 000 03/26/24 11:51 Document 04/02/24 10:55 [facility] 04/02/24 11:04 Document 04/09/24 10:21 000 04/09/24 10:24 03/19/24 03/26/2424 15:15 11:44 10:55 Wound Center Nurse 2 #1 R post LE- post-op cluster -Time 15:15 11:44 10:55 -Correct Patient Yes Yes Yes -Correct Side, Site, Position Yes Yes Yes -Correct Procedure Yes Yes Yes -Procedure Performed Yes Yes Yes -Type of Procedure Debridement Debridement Debridement -Clinical Debridement Subcutaneous Subcutaneous Subcutaneous -Tissue Removed Subcutaneous Subcutaneous Subcutaneous -Post Debridement (cm) - Length 2.2 1.8 -Post Debridement (cm) - Width 1.0 0.9 -Post Debridement (cm) - Depth 0.6 0.5 -Total Square (Post) (cm) 2.20 1.62 -Area of Debridement (cm) - Length 2.2 1.8 -Area of Debridement (cm) - Width 1.0 0.9 -Total Square (Area) (cm) 2.20 1.62 -Tunneling No No No -Undermining/Tunneling No No No -Circular Undermining No No No -Wound/Ulcer Outcome Not Healed Not Healed Not Healed -Ulcer Cleansing Rinsed/ Rinsed/ Rinsed/ Irrigated with Irrigated with Irrigated with Saline Saline Saline -Foul Odor after Cleansing No No No -Bioengineered Tissue Yes Yes Yes -Type of Bioengineered Tissue Epifix Epifix -Expiration Date 09/17/28 09/17/28 10/18/28 -Product Lot Number [id number] -Percent Used 100 100 100 -Lot number of Saline Used [id number] -Bleeding Controlled with Pressure Pressure Pressure -Treatment Response Procedure Procedure Procedure Tolerated Well Tolerated Well Tolerated Well -Offloading No No -Debridement - Subq, 1st 20sq cm No No No -Apply Skin Sub - 1st 25 sq cm - Legs 1 1 1 -Epifix (per sq cm) 4 4 4 Pain Scale: 0-10 Numeric Is Patient Pain Free? Yes Yes Yes 04/09/24 10:21 Wound Center Nurse 2 #1 R post LE- post-op cluster -Time 10:22 -Correct Patient Yes -Correct Side, Site, Position Yes -Correct Procedure Yes -Procedure Performed Yes -Type of Procedure Debridement -Clinical Debridement Subcutaneous -Tissue Removed Subcutaneous -Post Debridement (cm) - Length 2.0 -Post Debridement (cm) - Width 1.2 -Post Debridement (cm) - Depth 0.6 -Total Square (Post) (cm) 2.40 -Area of Debridement (cm) - Length 2.0 -Area of Debridement (cm) - Width 1.2 -Total Square (Area) (cm) 2.40 -Tunneling -Undermining/Tunneling No -Circular Undermining No -Wound/Ulcer Outcome Not Healed -Ulcer Cleansing Rinsed/ Irrigated with Saline -Foul Odor after Cleansing No -Bioengineered Tissue No -Type of Bioengineered Tissue -Expiration Date -Product Lot Number -Percent Used -Lot number of Saline Used -Bleeding Controlled with Pressure -Treatment Response Procedure Tolerated Well -Offloading No -Debridement - Subq, 1st 20sq cm Yes -Apply Skin Sub - 1st 25 sq cm - Legs -Epifix (per sq cm) Pain Scale: 0-10 Numeric Is Patient Pain Free? Yes WC - Nurse 3 - General Ulcer D/C NN Start: 03/19/24 14:41 Freq: Status: Active Protocol: Activity Type Activity Date Activity User E-sign Co-sign Detail Recorded Client Recorded Date Recorded By Document 03/19/24 15:24 DL [email or web address] 03/19/24 15:26 DL Document 03/21/24 11:15 RB [id number] 03/21/24 11:17 RB Document 03/26/24 11:53 GM 03/26/24 11:54 GM Document 04/02/24 11:08 MT [id number] 04/02/24 11:14 MT Document 04/04/24 11:38 RB wound 04/04/24 11:40 RB Document 04/09/24 10:52 KW d 04/09/24 10:52 KW 03/19/24 03/21/24 03/26/24 15:24 11:15 11:53 Wound Care Center Nurse 3 #1 R post LE- post-op cluster -Ulcer Cleansing Rinsed/ Not Cleansed Irrigated with Saline -Foul Odor after Cleansing No No -Other Dressing epifix ABD abd -Primary Dressing Covered/Secured with Dry Gauze & Dry Gauze & Roll Gauze, Roll Gauze, Secured with Secured with Tape Tape Left -Tubular Bandage Single Layer -Size of Tubigrip Used Size F -Size F ($) 1 Right -Lotion applied to leg before No compression wrap -Multi-Layered Wrap Application Multi-Layer Multi-Layer Multi-Layer Comp - Right ($ Comp - Right ($ Comp - Right ($ ) ) ) Treatment Response Procedure Procedure Tolerated Well Tolerated Well Vital Signs Temperature (97.8 F-99.1 F) 97.8 F Temperature Source Temporal Pulse Rate (60-100) 106 H Pulse Location Monitor Respiratory Rate (12-18) 18 Respiratory rate source Observation Blood Pressure (90/60-120/80) 120/75 Blood Pressure Mean (mm Hg) 90 Source Monitor Position Semi-Fowlers Blood Pressure Location Left Arm Pain Scale: 0-10 Numeric Is Patient Pain Free? Yes Yes Yes WC - Visit Discharge Discharge Condition Stable Stable Ambulatory Status Ambulatory Ambulatory Ambulatory Transportation Private Auto Private Auto Private Auto Medication Reconcilliation completed & No provided to patient/care provider Clinical Summary of Care Provided Yes Yes 04/02/24 04/04/24 04/09/24 11:08 11:38 10:52 Wound Care Center Nurse 3 #1 R post LE- post-op cluster -Ulcer Cleansing -Foul Odor after Cleansing -Other Dressing ABD ABD -Primary Dressing Covered/Secured with Dry Gauze & Roll Gauze, Secured with Tape Left -Tubular Bandage Double Layer -Size of Tubigrip Used Size F -Size F ($) 2 Right -Lotion applied to leg before compression wrap -Multi-Layered Wrap Application Multi-Layer Multi-Layer Multi-Layer Comp - Right ($ Comp - Right ($ Comp - Right ($ ) ) ) Treatment Response Procedure Tolerated Well Vital Signs Temperature (97.8 F-99.1 F) 97 F L Temperature Source Temporal Pulse Rate (60-100) 106 H Pulse Location Monitor Respiratory Rate (12-18) 18 Respiratory rate source Observation Blood Pressure (90/60-120/80) 162/94 H Blood Pressure Mean (mm Hg) 116 Source Monitor Position Semi-Fowlers Blood Pressure Location Left Arm Pain Scale: 0-10 Numeric Is Patient Pain Free? Yes Yes Yes WC - Visit Discharge Discharge Condition Stable Ambulatory Status Ambulatory Transportation Private Auto Medication Reconcilliation completed & No provided to patient/care provider Clinical Summary of Care Provided Yes Assessment/Plan Assessment/Plan (1) Non-pressure chronic ulcer of unspecified part of 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 All findings were discussed with the patient. All questions were answered to the patient's satisfaction. Excisional debridement down to including subcutaneous tissue of the right posterior calf with a number 5 mm dermal curette without incident. Predebridement measurement was 1.9 x 1.1 x 0.5 cm. Postdebridement measurement is 2.0 x 1.2 x 0.6 cm. Right lower extremity were cleaned and patted dry. Bolster dressing was applied to the right lower extremity followed by 3M wrap. Patient will keep it clean dry and intact and follow-up at the wound care center for dressing change if needed. Educated patient the need for following up with her bariatric doctor for evaluation and consultation as well as to follow curling machine operator plan to help with efficient dietary needs as well as weight loss program. Follow-up at the wound care center with Dr. Lord in 1 week. (2) Lymphedema, not elsewhere classified: CODE(S): I89.0 - Lymphedema, not elsewhere classified
[2024-04-16 14:22] VITALS: BP 188/96; PULSE 119; RESP 18; TEMP 37.1; BMI 62.5
--- NOTE | 2024-04-16 15:47 | PN.PCM_ITS ---
History of Present Illness Date of Service: 04/16/24 Chief Complaint: Ulceration right posterior leg History of Wound: Ulceration right posterior leg Subjective Subjective Ms. Rodriguez is a 43-year-old diabetic female presenting to the wound care center today for follow-up evaluation of posterior calf ulceration. Patient when asked regarding blood sugars she does states she has had multiple episodes of elevated blood sugars greater than 200. She notes she has not been compliant. But she will be following up with her primary doctor to try to get on a better blood sugar lower medication. Denies trauma. Denies constitutional symptoms. No other pedal complaints at this time. Objective Data Objective Data Vital Signs: Vital Signs Temp Pulse Resp BP O2 Del Method 98.7 F 119 H 18 188/96 H Room Air 04/16/24 14:22 04/16/24 14:22 04/16/24 14:22 04/16/24 14:22 04/16/24 14:22 Oxygen Delivery Method Room Air Weight: 160.223 kg Body Mass Index (BMI) 62.5 Physical Exam Narrative Vascular: DP and PT pulses palpable. CFT is brisk. Nonpitting edema appreciated to right lower extremity. No erythema or proximal streaking is appreciated. Neurological: Light touch intact. Patient response to painful stimuli. Dermatological: Full-thickness ulceration measures right calf measuring 2.1 x 0.9 x 0.6 cm. Wound base is granular nature with sanguinous drainage after debridement. No evidence of erythema or proximal streaking. Excisional debridement down to including subcutaneous tissue of the right posterior calf with a number 3 mm dermal curette without incident. Predebridement measurement was 2.0 x 0.8 x 0.5 cm. Postdebridement measurement is 2.1 x 0.9 x 0.6 cm. Musculoskeletal: No pain with calf compression. Mild pain to palpation full- thickness ulceration right calf. Debridement Note Debridement Note Debridement Free Text: Excisional debridement down to including subcutaneous tissue of the right posterior calf with a number 3 mm dermal curette without incident. Predebridement measurement was 2.0 x 0.8 x 0.5 cm. Postdebridement measurement is 2.1 x 0.9 x 0.6 cm Post-Debridement Measurements and Additional Note: Post-Debridement Measurements/Treatment PANCHITO - Nurse 1 - General Ulcer Assessment Start: 03/19/24 14:41 Freq: Status: Active Protocol: WC.LOWEXT Activity Type Activity Date Activity User E-sign Co-sign Detail Recorded Client Recorded Date Recorded By Document 03/19/24 14:42 DL 10.10.25.7 03/19/24 14:51 DL Document 03/21/24 11:15 RB [id number] 03/21/24 11:17 RB Document 03/26/24 11:11 GM wc 03/26/24 11:21 GM Document 04/02/24 10:21 MT [id number] 04/02/24 10:27 MT Document 04/04/24 11:38 RB wound 04/04/24 11:40 RB Document 04/09/24 09:56 CP 04/09/24 10:14 CP Document 04/16/24 14:22 CP 04/16/24 14:34 CP 03/19/24 03/21/24 03/26/24 14:42 11:15 11:11 WC - Today's Visit Information Type of service Follow-up Visit Follow-up Visit Follow-up Visit (Physician/HEAT PUMP INSTALLER (Physician/HEAT PUMP INSTALLER (Physician/HEAT PUMP INSTALLER ) ) ) Arrival Mode Ambulatory Ambulatory Ambulatory Transfer Assistance None None Accompanied by Patient Identification Verified (Name & Yes Yes Yes ) Patient Requires Transmission-Based No No Precautions Safety Precautions Finger Stick Blood Sugar(mg/dl) (if indicated): Blood Sugar Height and Weight Body Mass Index (BMI) 62.5 62.5 62.5 BMI Classification Obese Obese Obese Vital Signs Temperature (97.8 F-99.1 F) 97.6 F L 97.8 F 97.9 F Temperature Source Temporal Temporal Temporal Pulse Rate (60-100) 119 H 106 H 114 H Pulse Location Monitor Monitor Monitor Respiratory Rate (12-18) 22 H 18 20 H Respiratory rate source Observation Observation Observation Oxygen Delivery Method Room Air Blood Pressure (90/60-120/80) 156/85 H 120/75 171/99 H Blood Pressure Mean (mm Hg) 108 90 123 Source Monitor Monitor Monitor Position Semi-Fowlers Sitting Blood Pressure Location Left Arm Left Forearm History Since Last Visit- (Skip if this is Patient's initial visit) Have you changed medications since your No No No last visit? Any new allergies or adverse reactions No No No Had a fall/change in ADL's that may No No No increase risk of falls Signs or symptoms of abuse and/or No No No neglect since last visit Have you been in the hospital since your No No No last visit? Has dressing in place as prescribed Yes Yes Yes Has compression in place as prescribed Yes Yes Yes Has offloadiing in place as prescribed N/A No N/A Experienced any changes in pain level or No No No management Left Footwear Right Footwear Pain Scale: 0-10 Numeric Is Patient Pain Free? Yes Yes Yes 04/02/24 04/04/24 04/09/24 10:21 11:38 09:56 WC - Today's Visit Information Type of service Follow-up Visit Nurse-only Follow-up Visit (Physician/HEAT PUMP INSTALLER Visit (Physician/HEAT PUMP INSTALLER ) ) Arrival Mode Ambulatory Ambulatory Ambulatory Transfer Assistance None Accompanied by SELF Patient Identification Verified (Name & Yes Yes Yes ) Patient Requires Transmission-Based No No Precautions Safety Precautions Fall Prevention Finger Stick Blood Sugar(mg/dl) (if 297 indicated): Blood Sugar Stated by Patient Height and Weight Body Mass Index (BMI) 62.5 62.5 62.5 BMI Classification Obese Obese Obese Vital Signs Temperature (97.8 F-99.1 F) 98 F 97 F L 96.9 F L Temperature Source Temporal Temporal Temporal Pulse Rate (60-100) 106 H 106 H 115 H Pulse Location Monitor Monitor Monitor Respiratory Rate (12-18) 22 H 18 20 H Respiratory rate source Observation Observation Observation Oxygen Delivery Method Blood Pressure (90/60-120/80) 162/94 H 162/94 H 169/97 H Blood Pressure Mean (mm Hg) 116 116 121 Source Monitor Monitor Monitor Position Sitting Semi-Fowlers Sitting Blood Pressure Location Left Forearm Left Arm Left Forearm History Since Last Visit- (Skip if this is Patient's initial visit) Have you changed medications since your No Yes last visit? Any new allergies or adverse reactions No No Had a fall/change in ADL's that may No No increase risk of falls Signs or symptoms of abuse and/or No No neglect since last visit Have you been in the hospital since your No No last visit? Has dressing in place as prescribed Yes Yes Yes Has compression in place as prescribed Yes Yes Yes Has offloadiing in place as prescribed Yes No Experienced any changes in pain level or Yes No management Left Footwear Slipper Slipper Right Footwear Slipper Slipper Pain Scale: 0-10 Numeric Is Patient Pain Free? Yes Yes No 04/16/24 14:22 WC - Today's Visit Information Type of service Follow-up Visit (Physician/HEAT PUMP INSTALLER ) Arrival Mode Ambulatory Transfer Assistance Accompanied by Patient Identification Verified (Name & Yes ) Patient Requires Transmission-Based Yes Precautions Safety Precautions Fall Prevention Finger Stick Blood Sugar(mg/dl) (if 127 indicated): Blood Sugar Stated by Patient Height and Weight Body Mass Index (BMI) 62.5 BMI Classification Obese Vital Signs Temperature (97.8 F-99.1 F) 98.7 F Temperature Source Temporal Pulse Rate (60-100) 119 H Pulse Location Monitor Respiratory Rate (12-18) 18 Respiratory rate source Observation Oxygen Delivery Method Room Air Blood Pressure (90/60-120/80) 188/96 H Blood Pressure Mean (mm Hg) 126 Source Monitor Position Sitting Blood Pressure Location Left Forearm History Since Last Visit- (Skip if this is Patient's initial visit) Have you changed medications since your No last visit? Any new allergies or adverse reactions No Had a fall/change in ADL's that may No increase risk of falls Signs or symptoms of abuse and/or No neglect since last visit Have you been in the hospital since your No last visit? Has dressing in place as prescribed Yes Has compression in place as prescribed Yes Has offloadiing in place as prescribed Experienced any changes in pain level or management Left Footwear Right Footwear Pain Scale: 0-10 Numeric Is Patient Pain Free? No - Nurse 1 - General Ulcer Measurement Start: 03/19/24 14:41 Freq: Status: Active Protocol: Activity Type Activity Date Activity User E-sign Co-sign Detail Recorded Client Recorded Date Recorded By Document 03/19/24 14:42 DL 10.10.25.7 03/19/24 14:51 DL Document 03/21/24 11:15 RB [id number] 03/21/24 11:17 RB Document 03/26/24 11:11 GM wc 03/26/24 11:21 GM Document 04/02/24 10:21 MT [id number] 04/02/24 10:27 MT Document 04/04/24 11:38 RB wound 04/04/24 11:40 RB Document 04/09/24 09:56 CP 04/09/24 10:14 CP Document 04/16/24 14:22 CP 04/16/24 14:34 CP 03/19/24 03/21/24 03/26/24 14:42 11:15 11:11 Wound Center Nurse 1 #1 R post LE- post-op cluster -Current Size (cm) - Length 1.7 1.0 -Current Size (cm) - Width 0.8 0.5 -Current Size (cm) - Depth 0.7 0.9 -Total Square Cm 1.36 0.50 -Photo Taken No -Epithelialization Small 1-33% -Tunneling No -Undermining/Tunneling No -Circular Undermining No -Exudate Amt Medium Medium -Exudate Type Serosanguineous Yellow/Green -Wound Margin Distinct, Distinct, Outline Outline Attached Attached -Granulation Amt Small (1-33%) Small (1-33%) -Granulation Quality [place] Pale -Slough/Fibrin Yes -Necrosis Amt Large (67-100%) Medium (34-66%) -Necrotic Tissue Type Adherent Slough Adherent Slough -Structure Exposed N/A -Texture (Rachele-wound Skin Appearance) Scarring,Rash Assessed -Moisture (Rachele-wound Skin Appearance) No Abnormality Assessed -Color (Rachele-wound Skin Appearance) No Abnormality Assessed -Temperature (Rachele-wound Skin No Abnormality No Abnormality Appearance) (Pt Warm) (Pt Warm) -Tenderness on Palpation (Rachele-wound No Skin Appearance) -Ulcer Cleansing Soap and Water Soap and Water -Foul Odor after Cleansing No -Anesthetic Used 5% Lidocaine 5% Lidocaine Gel Gel Lower Limb Edema Present Yes Right Calf (cm) 64.2 64 Right Ankle (cm) 32 44 Point of Measurement (cm from the medial instep) Left Calf (cm) 58.5 Left Ankle (cm) 33.7 04/02/24 04/04/24 04/09/24 10:21 11:38 09:56 Wound Center Nurse 1 #1 R post LE- post-op cluster -Current Size (cm) - Length 1.4 1.3 -Current Size (cm) - Width 1.0 0.7 -Current Size (cm) - Depth 0.4 0.6 -Total Square Cm 1.40 0.91 -Photo Taken -Epithelialization Small 1-33% -Tunneling No -Undermining/Tunneling No -Circular Undermining -Exudate Amt Medium Small -Exudate Type Serosanguineous Serosanguineous -Wound Margin Thickened & Flat & Intact Rolled Under -Granulation Amt Medium (34-66%) Small (1-33%) -Granulation Quality Pale,[place] -Slough/Fibrin -Necrosis Amt Medium (34-66%) Medium (34-66%) -Necrotic Tissue Type Adherent Slough Adherent Slough -Structure Exposed N/A -Texture (Rachele-wound Skin Appearance) Assessed No Abnormality -Moisture (Rachele-wound Skin Appearance) Assessed No Abnormality -Color (Rachele-wound Skin Appearance) Assessed No Abnormality -Temperature (Rachele-wound Skin No Abnormality No Abnormality Appearance) (Pt Warm) (Pt Warm) -Tenderness on Palpation (Rachele-wound No No Skin Appearance) -Ulcer Cleansing Soap and Water Soap and Water -Foul Odor after Cleansing No No -Anesthetic Used 5% Lidocaine 5% Lidocaine Gel Gel Lower Limb Edema Present Yes Right Calf (cm) 61.5 66.5 61 Right Ankle (cm) 33 32 35.5 Point of Measurement (cm from the medial instep) Left Calf (cm) Left Ankle (cm) 04/16/24 14:22 Wound Center Nurse 1 #1 R post LE- post-op cluster -Current Size (cm) - Length 1.8 -Current Size (cm) - Width 0.5 -Current Size (cm) - Depth 5 -Total Square Cm 0.90 -Photo Taken No -Epithelialization Small 1-33% -Tunneling -Undermining/Tunneling -Circular Undermining -Exudate Amt Small -Exudate Type Serous -Wound Margin Thickened -Granulation Amt Medium (34-66%) -Granulation Quality [place] -Slough/Fibrin -Necrosis Amt Small (1-33%) -Necrotic Tissue Type Adherent Slough -Structure Exposed N/A -Texture (Rachele-wound Skin Appearance) No Abnormality -Moisture (Rachele-wound Skin Appearance) No Abnormality -Color (Rachele-wound Skin Appearance) No Abnormality -Temperature (Rachele-wound Skin No Abnormality Appearance) (Pt Warm) -Tenderness on Palpation (Rachele-wound No Skin Appearance) -Ulcer Cleansing Soap and Water -Foul Odor after Cleansing -Anesthetic Used 5% Lidocaine Gel Lower Limb Edema Present Right Calf (cm) 68.5 Right Ankle (cm) Point of Measurement (cm from the medial 44 instep) Left Calf (cm) Left Ankle (cm) - Nurse 2 - General Ulcer CM Notes Start: 03/19/24 14:41 Freq: Status: Active Protocol: Activity Type Activity Date Activity User E-sign Co-sign Detail Recorded Client Recorded Date Recorded By Document 03/19/24 15:15 0000 03/19/24 15:21 Document 03/26/24 11:44 000 03/26/24 11:51 Document 04/02/24 10:55 [facility] 04/02/24 11:04 Document 04/09/24 10:21 000 04/09/24 10:24 Document 04/16/24 15:08 0000 04/16/24 15:09 03/19/24 03/26/24 04/02/24 15:15 11:44 10:55 Wound Center Nurse 2 #1 R post LE- post-op cluster -Time 15:15 11:44 10:55 -Correct Patient Yes Yes Yes -Correct Side, Site, Position Yes Yes Yes -Correct Procedure Yes Yes Yes -Procedure Performed Yes Yes Yes -Type of Procedure Debridement Debridement Debridement -Clinical Debridement Subcutaneous Subcutaneous Subcutaneous -Tissue Removed Subcutaneous Subcutaneous Subcutaneous -Post Debridement (cm) - Length 2.2 1.8 -Post Debridement (cm) - Width 1.0 0.9 -Post Debridement (cm) - Depth 0.6 0.5 -Total Square (Post) (cm) 2.20 1.62 -Area of Debridement (cm) - Length 2.2 1.8 -Area of Debridement (cm) - Width 1.0 0.9 -Total Square (Area) (cm) 2.20 1.62 -Tunneling No No No -Undermining/Tunneling No No No -Circular Undermining No No No -Wound/Ulcer Outcome Not Healed Not Healed Not Healed -Ulcer Cleansing Rinsed/ Rinsed/ Rinsed/ Irrigated with Irrigated with Irrigated with Saline Saline Saline -Foul Odor after Cleansing No No No -Bioengineered Tissue Yes Yes Yes -Type of Bioengineered Tissue Epifix Epifix -Expiration Date 09/17/28 09/17/28 10/18/28 -Product Lot Number [id number] -Percent Used 100 100 100 -Lot number of Saline Used [id number] -Bleeding Controlled with Pressure Pressure Pressure -Treatment Response Procedure Procedure Procedure Tolerated Well Tolerated Well Tolerated Well -Offloading No No -Debridement - Subq, 1st 20sq cm No No No -Apply Skin Sub - 1st 25 sq cm - Legs 1 1 1 -Epifix (per sq cm) 4 4 4 Pain Scale: 0-10 Numeric Is Patient Pain Free? Yes Yes Yes 04/09/24 04/16/24 10:21 15:08 Wound Center Nurse 2 #1 R post LE- post-op cluster -Time 10:22 15:08 -Correct Patient Yes Yes -Correct Side, Site, Position Yes Yes -Correct Procedure Yes Yes -Procedure Performed Yes Yes -Type of Procedure Debridement Debridement -Clinical Debridement Subcutaneous Subcutaneous -Tissue Removed Subcutaneous Subcutaneous -Post Debridement (cm) - Length 2.0 2.1 -Post Debridement (cm) - Width 1.2 0.9 -Post Debridement (cm) - Depth 0.6 0.3 -Total Square (Post) (cm) 2.40 1.89 -Area of Debridement (cm) - Length 2.0 2.1 -Area of Debridement (cm) - Width 1.2 0.9 -Total Square (Area) (cm) 2.40 1.89 -Tunneling No -Undermining/Tunneling No No -Circular Undermining No No -Wound/Ulcer Outcome Not Healed Not Healed -Ulcer Cleansing Rinsed/ Rinsed/ Irrigated with Irrigated with Saline Saline -Foul Odor after Cleansing No No -Bioengineered Tissue No No -Type of Bioengineered Tissue -Expiration Date -Product Lot Number -Percent Used -Lot number of Saline Used -Bleeding Controlled with Pressure Pressure -Treatment Response Procedure Procedure Tolerated Well Tolerated Well -Offloading No No -Debridement - Subq, 1st 20sq cm Yes Yes -Apply Skin Sub - 1st 25 sq cm - Legs -Epifix (per sq cm) Pain Scale: 0-10 Numeric Is Patient Pain Free? Yes Yes - Nurse 3 - General Ulcer D/C NN Start: 03/19/24 14:41 Freq: Status: Active Protocol: Activity Type Activity Date Activity User E-sign Co-sign Detail Recorded Client Recorded Date Recorded By Document 03/19/24 15:24 DL 10.10.25.7 03/19/24 15:26 DL Document 03/21/24 11:15 RB [id number] 03/21/24 11:17 RB Document 03/26/24 11:53 GM 03/26/24 11:54 Document 04/02/24 11:08 NH [id number] 04/02/24 11:14 MT Document 04/04/24 11:38 RB wound 04/04/24 11:40 RB Document 04/09/24 10:52 KW d 04/09/24 10:52 KW 03/19/24 03/21/24 03/26/24 15:24 11:15 11:53 Wound Care Center Nurse 3 #1 R post LE- post-op cluster -Ulcer Cleansing Rinsed/ Not Cleansed Irrigated with Saline -Foul Odor after Cleansing No No -Other Dressing epifix ABD abd -Primary Dressing Covered/Secured with Dry Gauze & Dry Gauze & Roll Gauze, Roll Gauze, Secured with Secured with Tape Tape Left -Tubular Bandage Single Layer -Size of Tubigrip Used Size F -Size F ($) 1 Right -Lotion applied to leg before No compression wrap -Multi-Layered Wrap Application Multi-Layer Multi-Layer Multi-Layer Comp - Right ($ Comp - Right ($ Comp - Right ($ ) ) ) Treatment Response Procedure Procedure Tolerated Well Tolerated Well Vital Signs Temperature (97.8 F-99.1 F) 97.8 F Temperature Source Temporal Pulse Rate (60-100) 106 H Pulse Location Monitor Respiratory Rate (12-18) 18 Respiratory rate source Observation Blood Pressure (90/60-120/80) 120/75 Blood Pressure Mean (mm Hg) 90 Source Monitor Position Semi-Fowlers Blood Pressure Location Left Arm Pain Scale: 0-10 Numeric Is Patient Pain Free? Yes Yes Yes WC - Visit Discharge Discharge Condition Stable Stable Ambulatory Status Ambulatory Ambulatory Ambulatory Transportation Private Auto Private Auto Private Auto Medication Reconcilliation completed & No provided to patient/care provider Clinical Summary of Care Provided Yes Yes 04/02/24 04/04/24 04/09/24 11:08 11:38 10:52 Wound Care Center Nurse 3 #1 R post LE- post-op cluster -Ulcer Cleansing -Foul Odor after Cleansing -Other Dressing ABD ABD -Primary Dressing Covered/Secured with Dry Gauze & Roll Gauze, Secured with Tape Left -Tubular Bandage Double Layer -Size of Tubigrip Used Size F -Size F ($) 2 Right -Lotion applied to leg before compression wrap -Multi-Layered Wrap Application Multi-Layer Multi-Layer Multi-Layer Comp - Right ($ Comp - Right ($ Comp - Right ($ ) ) ) Treatment Response Procedure Tolerated Well Vital Signs Temperature (97.8 F-99.1 F) 97 F L Temperature Source Temporal Pulse Rate (60-100) 106 H Pulse Location Monitor Respiratory Rate (12-18) 18 Respiratory rate source Observation Blood Pressure (90/60-120/80) 162/94 H Blood Pressure Mean (mm Hg) 116 Source Monitor Position Semi-Fowlers Blood Pressure Location Left Arm Pain Scale: 0-10 Numeric Is Patient Pain Free? Yes Yes Yes WC - Visit Discharge Discharge Condition Stable Ambulatory Status Ambulatory Transportation Private Auto Medication Reconcilliation completed & No provided to patient/care provider Clinical Summary of Care Provided Yes Assessment/Plan Assessment/Plan (1) Non-pressure chronic ulcer of unspecified part of 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 All findings were discussed with the patient. All questions were answered to the patient's satisfaction. Excisional debridement down to including subcutaneous tissue of the right posterior calf with a number 3 mm dermal curette without incident. Predebridement measurement was 2.0 x 0.8 x 0.5 cm. Postdebridement measurement is 2.1 x 0.9 x 0.6 cm. Right lower extremities are clean and patted dry. Hydrogel collagen was applied to the full-thickness ulceration followed by Steri-Strips to reeducate skin lines. Dry sterile dressing then 3M layer wrap was applied. Educated the patient on strict blood sugar control that she is at risk for yu ving a chronic nonhealing wound which she was understanding of. I did educate the patient that she is medically noncompliant as she has continued to be uncooperative with her wound care plan and blood sugar control which again she is understanding of. Moving forward she states that she will continue to monitor her blood sugar and meet with her primary doctor to get on new blood lowering sugar medication. Follow-up at the wound care center with Dr. Lord in 1 week. (2) Lymphedema, not elsewhere classified: CODE(S): I89.0 - Lymphedema, not elsewhere classified (3) Medical non-compliance: CODE(S): Z91.199 - Patient's noncompliance with other medical treatment and regimen due to unspecified reason
== END 2024-04-16 23:59 | disposition home or self-care (01) ==
LOC: WC 14:30
PROVIDERS: PCP Internal Medicine; Referring Provider Internal Medicine; Visit Provider Podiatrist Foot & Ankle Surgery
DX: E11.622 Type 2 diabetes mellitus with other skin ulcer (principal); L97.212 Non-pressure chronic ulcer of right calf with fat layer exposed; I89.0 Lymphedema, not elsewhere classified; Z91.199 Patient's noncompliance with other medical treatment and regimen due to unspecified reason; Z79.84 Long term (current) use of oral hypoglycemic drugs; Z79.899 Other long term (current) drug therapy
CPT/HCPCS: 11042; 15271; 29581; 87070; 87075; 87077; 87186; 87205; Q4186

== ENCOUNTER 2024-05-14 10:00 | Outpatient (RCR) | payer MEDICAID, SELFPAY ==
[2024-04-17 00:48] VITALS: BP 143/85; PULSE 113; RESP 18; TEMP 36.6; BMI 62.5
[2024-04-23 08:51] VITALS: BP 180/88; PULSE 115; RESP 18; TEMP 37.1; BMI 62.5
--- NOTE | 2024-04-23 11:58 | PN.PCM_ITS ---
History of Present Illness Date of Service: 04/23/24 Chief Complaint: Ulceration right posterior leg History of Wound: Ulceration right posterior leg Subjective Subjective Ms. Rodriguez is a 43-year-old diabetic female presenting to wound care center today for follow-up evaluation of posterior right calf full-thickness ulceration. Patient had her blood drawn and got her A1c which is 10.7%. Patient is unhappy with her results and will be moving forward with lifestyle change to get her A1c below 7. She will be meeting with her primary for new medication and is looking forward to possibly getting bariatric consultation for possible surgery if needed. Patient is committed to quitting smoking and maintaining a better body overall health. She denies trauma. Denies constitutional symptoms. No other pedal complaints at this time. Objective Data Objective Data Vital Signs: Vital Signs Temp Pulse Resp BP O2 Del Method 98.8 F 115 H 18 180/88 H Room Air 04/23/24 08:51 04/23/24 08:51 04/23/24 08:51 04/23/24 08:51 04/23/24 08:51 Oxygen Delivery Method Room Air Weight: 160.223 kg Body Mass Index (BMI) 62.5 Physical Exam Narrative Vascular: DP and PT pulses palpable. CFT is brisk. Nonpitting edema appreciate d to right lower extremity. No erythema or proximal streaking is appreciated. Neurological: Light touch intact. Patient response to painful stimuli. Dermatological: Full-thickness ulceration measures right calf measuring 1.9 x 0.8 x 0.6 cm. Wound base is granular nature with sanguinous drainage after debridement. No evidence of erythema or proximal streaking. Excisional debridement down to including subcutaneous tissue of the right posterior calf with a number 3 mm dermal curette without incident. Predebridement measurement was 1.8 x 0.7 x 0.5 cm. Postdebridement measurement is 1.9 x 0.8 x 0.6 cm. Musculoskeletal: No pain with calf compression. Mild pain to palpation full- thickness ulceration right calf. Debridement Note Debridement Note Debridement Free Text: Excisional debridement down to including subcutaneous tissue of the right posterior calf with a number 3 mm dermal curette without incident. Predebridement measurement was 1.8 x 0.7 x 0.5 cm. Postdebridement measurement is 1.9 x 0.8 x 0.6 cm. Post-Debridement Measurements and Additional Note: Post-Debridement Measurements/Treatment PANCHITO - Nurse 1 - General Ulcer Assessment Start: 04/23/24 08:51 Freq: Status: Active Protocol: WATSON Activity Type Activity Date Activity User E-sign Co-sign Detail Recorded Client Recorded Date Recorded By Document 04/23/24 08:51 JOSE gomesg 04/23/24 09:05 04/23/24 08:51 WC - Today's Visit Information Type of service Follow-up Visit (Physician/CAN WORKER ) Arrival Mode Ambulatory Patient Identification Verified (Name & Yes ) Height and Weight Body Mass Index (BMI) 62.5 BMI Classification Obese Vital Signs Temperature (97.8 F-99.1 F) 98.8 F Temperature Source Temporal Pulse Rate (60-100) 115 H Pulse Location Monitor Respiratory Rate (12-18) 18 Respiratory rate source Observation Oxygen Delivery Method Room Air Blood Pressure (90/60-120/80) 180/88 H Blood Pressure Mean (mm Hg) 118 Source Monitor Position Sitting Blood Pressure Location Left Forearm History Since Last Visit- (Skip if this is Patient's initial visit) Have you changed medications since your No last visit? Any new allergies or adverse reactions No Had a fall/change in ADL's that may No increase risk of falls Signs or symptoms of abuse and/or No neglect since last visit Have you been in the hospital since your No last visit? Has dressing in place as prescribed Yes Has compression in place as prescribed Yes Has offloadiing in place as prescribed N/A Experienced any changes in pain level or No management Left Footwear Regular Shoe Right Footwear Regular Shoe Pain Scale: 0-10 Numeric Is Patient Pain Free? Yes - Nurse 1 - General Ulcer Measurement Start: 04/23/24 08:51 Freq: Status: Active Protocol: Activity Type Activity Date Activity User E-sign Co-sign Detail Recorded Client Recorded Date Recorded By Document 04/23/24 08:51 JOSE mir 04/23/24 09:05 04/23/24 08:51 Wound Center Nurse 1 #1 R post LE- post-op cluster -Current Size (cm) - Length 1.7 -Current Size (cm) - Width 0.5 -Current Size (cm) - Depth 0.6 -Total Square Cm 0.85 -Exudate Amt Medium -Exudate Type Serosanguineous -Wound Margin Thickened -Granulation Amt Large (67-100%) -Granulation Quality [place] -Necrosis Amt Small (1-33%) -Necrotic Tissue Type Adherent Slough -Texture (Rachele-wound Skin Appearance) Assessed -Moisture (Rachele-wound Skin Appearance) Assessed -Color (Rachele-wound Skin Appearance) Assessed -Temperature (Rachele-wound Skin No Abnormality Appearance) (Pt Warm) -Tenderness on Palpation (Rachele-wound No Skin Appearance) -Ulcer Cleansing Soap and Water -Foul Odor after Cleansing No -Anesthetic Used 5% Lidocaine Gel Right Calf (cm) 70.5 Right Ankle (cm) 38 PANCHITO - Nurse 2 - General Ulcer CM Notes Start: 04/23/24 08:51 Freq: Status: Active Protocol: Activity Type Activity Date Activity User E-sign Co-sign Detail Recorded Client Recorded Date Recorded By Document 04/23/24 09:32 JF 000 04/23/24 09:35 04/23/24 09:32 Wound Center Nurse 2 #1 R post LE- post-op cluster -Time 09:32 -Correct Patient Yes -Correct Side, Site, Position Yes -Correct Procedure Yes -Procedure Performed Yes -Type of Procedure Debridement -Clinical Debridement Subcutaneous -Tissue Removed Subcutaneous -Post Debridement (cm) - Length 1.9 -Post Debridement (cm) - Width 0.8 -Post Debridement (cm) - Depth 0.6 -Total Square (Post) (cm) 1.52 -Area of Debridement (cm) - Length 1.9 -Area of Debridement (cm) - Width 0.8 -Total Square (Area) (cm) 1.52 -Tunneling No -Undermining/Tunneling No -Circular Undermining No -Wound/Ulcer Outcome Not Healed -Ulcer Cleansing Rinsed/ Irrigated with Saline -Foul Odor after Cleansing No -Bioengineered Tissue No -Bleeding Controlled with Pressure -Treatment Response Procedure Tolerated Well -Offloading No -Debridement - Subq, 1st 20sq cm Yes Pain Scale: 0-10 Numeric Is Patient Pain Free? Yes - Nurse 3 - General Ulcer D/C NN Start: 04/23/24 08:51 Freq: Status: Active Protocol: Activity Type Activity Date Activity User E-sign Co-sign Detail Recorded Client Recorded Date Recorded By Document 04/23/24 09:57 GM 04/23/24 09:58 04/23/24 09:57 Wound Care Center Nurse 3 #1 R post LE- post-op cluster -Ulcer Cleansing Not Cleansed -Negative Pressure Wound Therapy N/A -Primary Dressing Applied Optilok 6.5x10 -Optilok 6.5x10 1 Left -Tubular Bandage Double Layer -Size of Tubigrip Used Size F -Size F ($) 2 Right -Lotion applied to leg before No compression wrap -Multi-Layered Wrap Application Multi-Layer Comp - Right ($ ) Pain Scale: 0-10 Numeric Is Patient Pain Free? Yes WC - Visit Discharge Discharge Condition Stable Ambulatory Status Ambulatory Transportation Private Auto Clinical Summary of Care Provided Yes Assessment/Plan Assessment/Plan (1) Non-pressure chronic ulcer of unspecified part of 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 All findings were discussed with the patient. All questions were answered to the patient's satisfaction. Excisional debridement down to including subcutaneous tissue of the right posterior calf with a number 3 mm dermal curette without incident. Predebridement measurement was 1.8 x 0.7 x 0.5 cm. Postdebridement measurement is 1.9 x 0.8 x 0.6 cm. Right lower extremities are clean and patted dry. [place] gel collagen was applied to the full-thickness ulceration followed by Steri- Strips to reeducate skin lines. Dry sterile dressing then 3M layer wrap was applied. Encouraged the patient continue strict blood sugar control which she was understanding of. She will be following up with her primary doctor for reevaluation of diabetic/blood sugar lowering medication. Follow-up at the wound care center with Dr. Lord in 1 week. (2) Acute painful diabetic polyneuropathy: CODE(S): E11.42 - Type 2 diabetes mellitus with diabetic polyneuropathy (3) Wound dehiscence, surgical: CODE(S): T81.31XA - Disruption of external operation (surgical) wound, not elsewhere classified, initial encounter QUALIFIERS: Encounter type: subsequent encounter Qualified Code(s): T81.31XD - Disruption of external operation (surgical) wound, not elsewhere classified, subsequent encounter
[2024-04-30 13:31] VITALS: BP 150/88; PULSE 107; RESP 18; TEMP 36.1; BMI 62.5
--- NOTE | 2024-04-30 16:51 | PCM.WC.PN ---
History of Present Illness Date of Service: 04/30/24 Chief Complaint: Ulceration right posterior leg History of Wound: Ulceration right posterior leg Subjective Subjective Mrs. Rodriguez is a 43-year-old diabetic female presented wound care center today for follow-up evaluation of the posterior calf full-thickness ulceration. Patient is on a new diabetic sugar lowering medication. She admits that her blood sugar was 162 mg/dL today. She denies trauma. Denies constitutional symptoms. No other pedal complaints at this time. Objective Data Objective Data Vital Signs: Vital Signs Temp Pulse Resp BP O2 Del Method 97 F L 107 H 18 150/88 H Room Air 04/30/24 13:31 04/30/24 13:31 04/30/24 13:31 04/30/24 13:31 04/23/24 08:51 Oxygen Delivery Method Room Air Weight: 160.223 kg Body Mass Index (BMI) 62.5 Physical Exam Narrative Vascular: DP and PT pulses palpable. CFT is brisk. Nonpitting edema appreciated to right lower extremity. No erythema or proximal streaking is appreciated. Neurological: Light touch intact. Patient response to painful stimuli. Dermatological: Full-thickness ulceration measures right calf measuring 2.0 x 0.7 x 0.6 cm. Wound base is granular nature with sanguinous drainage after debridement. No evidence of erythema or proximal streaking. Excisional debridement down to including subcutaneous tissue of the right posterior calf with a number 3 mm dermal curette without incident. Predebridement measurement was 1.9 x 0.6 x 0.5 cm. Postdebridement measurement is 2.0 x 0.7 x 0.6 cm. Musculoskeletal: No pain with calf compression. Mild pain to palpation full-thickness ulceration right calf. Debridement Note Debridement Note Debridement Free Text: Excisional debridement down to including subcutaneous tissue of the right posterior calf with a number 3 mm dermal curette without incident. Predebridement measurement was 1.9 x 0.6 x 0.5 cm. Postdebridement measurement is 2.0 x 0.7 x 0.6 cm. Post-Debridement Measurements and Additional Note: Post-Debridement Measurements/Treatment PANCHITO - Nurse 1 - General Ulcer Assessment Start: 04/23/24 08:51 Freq: Status: Active Protocol: WATSON Activity Type Activity Date Activity User E-sign Co-sign Detail Recorded Client Recorded Date Recorded By Document 04/23/24 08:51 [place] [facility] [place]/23/24 09:05 Document 04/30/24 13:[id number] 04/30/24 13:37 [place] 04/23/24 04/30/24 08:51 13:31 - Today's Visit Information Type of service Follow-up Visit Follow-up Visit (Physician/ORAL THERAPIST (Physician/ORAL THERAPIST ) ) Arrival Mode Ambulatory Ambulatory Accompanied by self Patient Identification Verified (Name & Yes Yes ) Finger Stick Blood Sugar(mg/dl) (if 152 indicated): Blood Sugar Stated by Patient Height and Weight Body Mass Index (BMI) 62.5 62.5 BMI Classification Obese Obese Vital Signs Temperature (97.8 F-99.1 F) 98.8 F 97 F L Temperature Source Temporal Temporal Pulse Rate (60-100) 115 H 107 H Pulse Location Monitor Monitor Respiratory Rate (12-18) 18 18 Respiratory rate source Observation Observation Oxygen Delivery Method Room Air Blood Pressure (90/60-120/80) 180/88 H 150/88 H Blood Pressure Mean (mm Hg) 118 108 Source Monitor Monitor Position Sitting Sitting Blood Pressure Location Left Forearm Left Forearm History Since Last Visit- (Skip if this is Patient's initial visit) Have you changed medications since your No last visit? Any new allergies or adverse reactions No Had a fall/change in ADL's that may No increase risk of falls Signs or symptoms of abuse and/or No neglect since last visit Have you been in the hospital since your No last visit? Has dressing in place as prescribed Yes Has compression in place as prescribed Yes Has offloadiing in place as prescribed N/A Experienced any changes in pain level or No management Left Footwear Regular Shoe Regular Shoe Right Footwear Regular Shoe Regular Shoe Pain Scale: 0-10 Numeric Is Patient Pain Free? Yes Yes - Nurse 1 - General Ulcer Measurement Start: 04/23/24 08:51 Freq: Status: Active Protocol: Activity Type Activity Date Activity User E-sign Co-sign Detail Recorded Client Recorded Date Recorded By Document 04/23/24 08:51 [place] [facility] [place]/23[place]24 09:05 Document 04/30/24 13:[id number] 04/30/24 13:37 [place] 04/23/24 04/30/24 08:51 13:31 Wound Center Nurse 1 #1 R post LE- post-op cluster -Current Size (cm) - Length 1.7 1.8 -Current Size (cm) - Width 0.5 0.7 -Current Size (cm) - Depth 0.6 0.4 -Total Square Cm 0.85 1.26 -Exudate Amt Medium Medium -Exudate Type Serosanguineous Serosanguineous -Wound Margin Thickened Thickened & Rolled Under -Granulation Amt Large (67-100%) Large (67-100%) -Granulation Quality [place] Pale,Marydel -Necrosis Amt Small (1-33%) Small (1-33%) -Necrotic Tissue Type Adherent Slough Adherent Slough -Texture (Rachele-wound Skin Appearance) Assessed Assessed -Moisture (Rachele-wound Skin Appearance) Assessed Assessed -Color (Rachele-wound Skin Appearance) Assessed Assessed -Temperature (Rachele-wound Skin No Abnormality No Abnormality Appearance) (Pt Warm) (Pt Warm) -Tenderness on Palpation (Rachele-wound No No Skin Appearance) -Ulcer Cleansing Soap and Water Soap and Water -Foul Odor after Cleansing No No -Anesthetic Used 5% Lidocaine 4% Lidocaine Gel Solution Right Calf (cm) 70.5 Right Ankle (cm) 38 WC - Nurse 2 - General Ulcer CM Notes Start: 04/23/24 08:51 Freq: Status: Active Protocol: Activity Type Activity Date Activity User E-sign Co-sign Detail Recorded Client Recorded Date Recorded By Document 04/23/24 09:32 JF 000 04/23/24 09:35 Document 04/30/24 14:22 JF 0000 04/30/24 14:23 04/23/24 04/30/24 09:32 14:22 Wound Center Nurse 2 #1 R post LE- post-op cluster -Time 09:32 14:23 -Correct Patient Yes Yes -Correct Side, Site, Position Yes Yes -Correct Procedure Yes Yes -Procedure Performed Yes Yes -Type of Procedure Debridement Debridement -Clinical Debridement Subcutaneous Subcutaneous -Tissue Removed Subcutaneous Subcutaneous -Post Debridement (cm) - Length 1.9 2.0 -Post Debridement (cm) - Width 0.8 0.7 -Post Debridement (cm) - Depth 0.6 0.6 -Total Square (Post) (cm) 1.52 1.40 -Area of Debridement (cm) - Length 1.9 2.0 -Area of Debridement (cm) - Width 0.8 0.7 -Total Square (Area) (cm) 1.52 1.40 -Tunneling No No -Undermining/Tunneling No No -Circular Undermining No No -Wound/Ulcer Outcome Not Healed Not Healed -Ulcer Cleansing Rinsed/ Rinsed/ Irrigated with Irrigated with Saline Saline -Foul Odor after Cleansing No No -Bioengineered Tissue No No -Bleeding Controlled with Pressure Pressure -Treatment Response Procedure Procedure Tolerated Well Tolerated Well -Offloading No No -Debridement - Subq, 1st 20sq cm Yes Yes Pain Scale: 0-10 Numeric Is Patient Pain Free? Yes Yes - Nurse 3 - General Ulcer D/C NN Start: 04/23/24 08:51 Freq: Status: Active Protocol: Activity Type Activity Date Activity User E-sign Co-sign Detail Recorded Client Recorded Date Recorded By Document 04/23/24 09:57 GM wc 04/23/24 09:58 GM Document 04/30/24 14:31 KW asfd 04/30/24 14:32 KW 04/23/24 04/30/24 09:57 14:31 Wound Care Center Nurse 3 #1 R post LE- post-op cluster -Ulcer Cleansing Not Cleansed -Negative Pressure Wound Therapy N/A -Primary Dressing Applied Optilok 6.5x10 Optilok 8x12 -Optilok 6.5x10 1 -Optilok 8x12 1 Left -Tubular Bandage Double Layer Single Layer -Size of Tubigrip Used Size F Size F -Size F ($) 2 1 Right -Lotion applied to leg before No compression wrap -Multi-Layered Wrap Application Multi-Layer Multi-Layer Comp - Right ($ Comp - Right ($ ) ) Pain Scale: 0-10 Numeric Is Patient Pain Free? 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 All findings were discussed with the patient. All questions were answered to the patient's satisfaction. Excisional debridement down to including subcutaneous tissue of the right posterior calf with a number 3 mm dermal curette without incident. Predebridement measurement was 1.9 x 0.6 x 0.5 cm. Postdebridement measurement is 2.0 x 0.7 x 0.6 cm. Ulceration was dressed with hydrogel collagen Steri-Strip to reeducate skin lines. Dry sterile dressing and compression bandages. Patient will continue to check her blood sugar daily and will continue strict blood sugar control to optimize healing. Follow-up at the wound care center with Dr. Lord in 1 week. (2) Lymphedema, not elsewhere classified: CODE(S): I89.0 - Lymphedema, not elsewhere classified (3) Acute painful diabetic polyneuropathy: CODE(S): E11.42 - Type 2 diabetes mellitus with diabetic polyneuropathy
[2024-05-07 13:13] VITALS: BP 192/95; PULSE 111; RESP 18; TEMP 36.6; BMI 62.5
--- NOTE | 2024-05-07 13:34 | PCM.WC.PN ---
History of Present Illness Date of Service: 05/07/24 Chief Complaint: Ulceration right posterior leg History of Wound: Ulceration right posterior leg Subjective Subjective Ms. Rodriguez is a 43-year-old diabetic female presented wound care center today follow-up evaluation of posterior right calf leg wound. Patient has begun her Trulicity injection for weight loss and diabetes control. Shelley blood sugar has been hovering around 130 mg/dL. She has not had any incidents over the last week of blood sugar greater than 200 mg/dL. She has been compliant with her dressing left in clean dry and intact. She denies trauma. Denies constitutional symptoms. No pedal complaints at this time. Objective Data Objective Data Vital Signs: Vital Signs Temp Pulse Resp BP O2 Del Method 97.8 F 111 H 18 192/95 H Room Air 05/07/24 13:13 05/07/24 13:13 05/07/24 13:13 05/07/24 13:13 04/23/24 08:51 Oxygen Delivery Method Room Air Weight: 160.223 kg Body Mass Index (BMI) 62.5 Physical Exam Narrative Vascular: DP and PT pulses palpable. CFT is brisk. Nonpitting edema appreciated to right lower extremity. No erythema or proximal streaking is appreciated. Neurological: Light touch intact. Patient response to painful stimuli. Dermatological: Full-thickness ulceration measures right calf measuring 1.8 x 0.8 x 0.8 cm. Wound base is granular nature with sanguinous drainage after debridement. No evidence of erythema or proximal streaking. Excisional debridement down to including subcutaneous tissue of the right posterior calf with a number 3 mm dermal curette without incident. Predebridement measurement was 1.7 x 0.7 x 0.4 cm. Postdebridement measurement is 1.8 x 0.8 x 0.8 cm. Musculoskeletal: No pain with calf compression. Mild pain to palpation full-thickness ulceration right calf. Debridement Note Debridement Note Debridement Free Text: Excisional debridement down to including subcutaneous tissue of the right posterior calf with a number 3 mm dermal curette without incident. Predebridement measurement was 1.7 x 0.7 x 0.4 cm. Postdebridement measurement is 1.8 x 0.8 x 0.8 cm. Post-Debridement Measurements and Additional Note: Post-Debridement Measurements/Treatment WC - Nurse 1 - General Ulcer Assessment Start: 04/23/24 08:51 Freq: Status: Active Protocol: WC.LOWEXT Activity Type Activity Date Activity User E-sign Co-sign Detail Recorded Client Recorded Date Recorded By Document 04/23/24 08:51 KW fcg 04/23/24 09:05 KW Document 04/30/24 13:31 MT [id number] 04/30/24 13:37 MT Document 05/07/24 13:13 CP [id number] 05/07/24 13:19 CP 04/23/24 04/30/24 05/07/24 08:51 13:31 13:13 WC - Today's Visit Information Type of service Follow-up Visit Follow-up Visit Follow-up Visit (Physician/ASH CONVEYOR OPERATOR (Physician/ASH CONVEYOR OPERATOR (Physician/ASH CONVEYOR OPERATOR ) ) ) Arrival Mode Ambulatory Ambulatory Ambulatory Accompanied by self Patient Identification Verified (Name & Yes Yes ) Patient Requires Transmission-Based No Precautions Finger Stick Blood Sugar(mg/dl) (if 152 indicated): Blood Sugar Stated by Patient Height and Weight Body Mass Index (BMI) 62.5 62.5 62.5 BMI Classification Obese Obese Obese Vital Signs Temperature (97.8 F-99.1 F) 98.8 F 97 F L 97.8 F Temperature Source Temporal Temporal Temporal Pulse Rate (60-100) 115 H 107 H 111 H Pulse Location Monitor Monitor Monitor Respiratory Rate (12-18) 18 18 18 Respiratory rate source Observation Observation Observation Oxygen Delivery Method Room Air Blood Pressure (90/60-120/80) 180/88 H 150/88 H 192/95 H Blood Pressure Mean (mm Hg) 118 108 127 Source Monitor Monitor Monitor Position Sitting Sitting Semi-Fowlers Blood Pressure Location Left Forearm Left Forearm Right Forearm History Since Last Visit- (Skip if this is Patient's initial visit) Have you changed medications since your No No last visit? Any new allergies or adverse reactions No No Had a fall/change in ADL's that may No No increase risk of falls Signs or symptoms of abuse and/or No No neglect since last visit Have you been in the hospital since your No No last visit? Has dressing in place as prescribed Yes Yes Has compression in place as prescribed Yes Yes Has offloadiing in place as prescribed N/A N/A Experienced any changes in pain level or No No management Left Footwear Regular Shoe Regular Shoe Right Footwear Regular Shoe Regular Shoe Pain Scale: 0-10 Numeric Is Patient Pain Free? Yes Yes No WC - Nurse 1 - General Ulcer Measurement Start: 04/23/24 08:51 Freq: Status: Active Protocol: Activity Type Activity Date Activity User E-sign Co-sign Detail Recorded Client Recorded Date Recorded By Document 04/23/24 08:51 KW fcg 04/23/24 09:05 KW Document 04/30/24 13:31 MT [id number] 04/30/24 13:37 MT Document 05/07/24 13:13 CP [id number] 05/07/24 13:19 CP 04/23/24 04/30/24 05/07/24 08:51 13:31 13:13 Wound Center Nurse 1 #1 R post LE- post-op cluster -Combined with (Name of Wound-Exactly 1 as it is documented) -Current Size (cm) - Length 1.7 1.8 0.5 -Current Size (cm) - Width 0.5 0.7 0.5 -Current Size (cm) - Depth 0.6 0.4 -Total Square Cm 0.85 1.26 0.25 -Date of Last Picture (Recall this 05/07/24 field) -Exudate Amt Medium Medium Small -Exudate Type Serosanguineous Serosanguineous Sanguineous -Wound Margin Thickened Thickened & Rolled Under -Granulation Amt Large (67-100%) Large (67-100%) Large (67-100%) -Granulation Quality [place] Pale,[place] -Slough/Fibrin Yes -Necrosis Amt Small (1-33%) Small (1-33%) Small (1-33%) -Necrotic Tissue Type Adherent Slough Adherent Slough Adherent Slough -Structure Exposed N/A -Texture (Rachele-wound Skin Appearance) Assessed Assessed No Abnormality -Moisture (Rachele-wound Skin Appearance) Assessed Assessed No Abnormality -Color (Rachele-wound Skin Appearance) Assessed Assessed No Abnormality -Temperature (Rachele-wound Skin No Abnormality No Abnormality No Abnormality Appearance) (Pt Warm) (Pt Warm) (Pt Warm) -Tenderness on Palpation (Rachele-wound No No No Skin Appearance) -Ulcer Cleansing Soap and Water Soap and Water Soap and Water -Foul Odor after Cleansing No No -Anesthetic Used 5% Lidocaine 4% Lidocaine 5% Lidocaine Gel Solution Gel Right Calf (cm) 70.5 62 Right Ankle (cm) 38 37.5 - Nurse 2 - General Ulcer CM Notes Start: 04/23/24 08:51 Freq: Status: Active Protocol: Activity Type Activity Date Activity User E-sign Co-sign Detail Recorded Client Recorded Date Recorded By Document 04/23/24 09:32 JF 000 04/23/24 09:35 JF Document 04/30/24 14:22 JF 0000 04/30/24 14:23 JF Document 05/07/24 13:30 [id number] 05/07/24 13:32 JF 04/23/24 04/30/24 05/07/24 09:32 14:22 13:30 Wound Center Nurse 2 #1 R post LE- post-op cluster -Time 09:32 14:23 13:31 -Correct Patient Yes Yes Yes -Correct Side, Site, Position Yes Yes Yes -Correct Procedure Yes Yes Yes -Procedure Performed Yes Yes Yes -Type of Procedure Debridement Debridement Debridement -Clinical Debridement Subcutaneous Subcutaneous Subcutaneous -Tissue Removed Subcutaneous Subcutaneous Subcutaneous -Post Debridement (cm) - Length 1.9 2.0 1.8 -Post Debridement (cm) - Width 0.8 0.7 0.8 -Post Debridement (cm) - Depth 0.6 0.6 0.8 -Total Square (Post) (cm) 1.52 1.40 1.44 -Area of Debridement (cm) - Length 1.9 2.0 1.8 -Area of Debridement (cm) - Width 0.8 0.7 0.8 -Total Square (Area) (cm) 1.52 1.40 1.44 -Tunneling No No No -Undermining/Tunneling No No No -Circular Undermining No No No -Wound/Ulcer Outcome Not Healed Not Healed Not Healed -Ulcer Cleansing Rinsed/ Rinsed/ Rinsed/ Irrigated with Irrigated with Irrigated with Saline Saline Saline -Foul Odor after Cleansing No No No -Bioengineered Tissue No No No -Bleeding Controlled with Pressure Pressure Silver Nitrate -Treatment Response Procedure Procedure Procedure Tolerated Well Tolerated Well Tolerated Well -Offloading No No No -Debridement - Subq, 1st 20sq cm Yes Yes Yes Pain Scale: 0-10 Numeric Is Patient Pain Free? Yes Yes Yes - Nurse 3 - General Ulcer D/C NN Start: 04/23/24 08:51 Freq: Status: Active Protocol: Activity Type Activity Date Activity User E-sign Co-sign Detail Recorded Client Recorded Date Recorded By Document 04/23/24 09:57 GM wc 04/23/24 09:58 GM Document 04/30/24 14:31 KW asfd 04/30/24 14:32 KW 04/23/24 04/30/24 09:57 14:31 Wound Care Center Nurse 3 #1 R post LE- post-op cluster -Ulcer Cleansing Not Cleansed -Negative Pressure Wound Therapy N/A -Primary Dressing Applied Optilok 6.5x10 Optilok 8x12 -Optilok 6.5x10 1 -Optilok 8x12 1 Left -Tubular Bandage Double Layer Single Layer -Size of Tubigrip Used Size F Size F -Size F ($) 2 1 Right -Lotion applied to leg before No compression wrap -Multi-Layered Wrap Application Multi-Layer Multi-Layer Comp - Right ($ Comp - Right ($ ) ) Pain Scale: 0-10 Numeric Is Patient Pain Free? 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 All findings were discussed with the patient. All questions were answered to the patient's satisfaction. Excisional debridement down to including subcutaneous tissue of the right posterior calf with a number 3 mm dermal curette without incident. Predebridement measurement was 1.7 x 0.7 x 0.4 cm. Postdebridement measurement is 1.8 x 0.8 x 0.8 cm. Ulceration was dressed with BRANDYN, hydrogel collagen and 3M multilayer compression wrap. Patient will continue to check her blood sugar daily and will continue strict blood sugar control to optimize healing. Follow-up at the wound care center with Dr. Lord in 1 week. (2) Lymphedema, not elsewhere classified: CODE(S): I89.0 - Lymphedema, not elsewhere classified (3) Acute painful diabetic polyneuropathy: CODE(S): E11.42 - Type 2 diabetes mellitus with diabetic polyneuropathy
--- NOTE | 2024-05-08 13:42 | WC ---
Trixie KAYE 05/07/24 RIGHT LATERAL LEG
[2024-05-14 10:01] VITALS: BP 165/90; PULSE 112; RESP 18; TEMP 36.1; BMI 62.5
--- NOTE | 2024-05-14 12:52 | PN.PCM_ITS ---
History of Present Illness Date of Service: 05/14/24 Chief Complaint: Ulceration right posterior leg History of Wound: Ulceration right posterior leg Subjective Subjective Ms. Rodriguez is a 43-year-old female presenting to the wound care center today for follow-up evaluation of full-thickness wound to the posterior aspect of the right leg. Patient has left her wrappings clean dry and intact. She also states that she got her dentures and notices great improvement with her smile and facial character. Patient has maintained normal blood sugar but is on steroids secondary to her productive cough and has admitted to elevated blood sugar at this time. She denies any trauma. Denies constitutional symptoms. No other pedal complaints at this time. Objective Data Objective Data Vital Signs: Vital Signs Temp Pulse Resp BP O2 Del Method 97.0 F L 112 H 18 165/90 H Room Air 05/14/24 10:01 05/14/24 10:01 05/14/24 10:01 05/14/24 10:05/14/24 10:01 Oxygen Delivery Method Room Air Weight: 160.223 kg Body Mass Index (BMI) 62.5 Physical Exam Narrative Vascular: DP and PT pulses palpable. CFT is brisk. Nonpitting edema appreciated to right lower extremity. No erythema or proximal streaking is appreciated. Neurological: Light touch intact. Patient response to painful stimuli. Dermatological: Full-thickness ulceration measures right calf measuring 1.8 x 0.6 x 0.4 cm. Wound base is granular nature with sanguinous drainage after debridement. No evidence of erythema or proximal streaking. Excisional debridement down to including subcutaneous tissue of the right posterior calf with a number 3 mm dermal curette without incident. Predebridement measurement was 1.7 x 0.5 x 0.3 cm. Postdebridement measurement is 1.8 x 0.6 x 0.4 cm. Musculoskeletal: No pain with calf compression. Mild pain to palpation full- thickness ulceration right calf. Debridement Note Debridement Note Debridement Free Text: Excisional debridement down to including subcutaneous tissue of the right posterior calf with a number 3 mm dermal curette without incident. Predebridement measurement was 1.7 x 0.5 x 0.3 cm. Postdebridement measurement is 1.8 x 0.6 x 0.4 cm. Post-Debridement Measurements and Additional Note: Post-Debridement Measurements/Treatment WC - Nurse 1 - General Ulcer Assessment Start: 04/23/24 08:51 Freq: Status: Active Protocol: WC.LOWEXT Activity Type Activity Date Activity User E-sign Co-sign Detail Recorded Client Recorded Date Recorded By Document 04/23/24 08:51 KW fcg 04/23/24 09:05 KW Document 04/30/24 13:31 MT [id number] 04/30/24 13:37 MT Document 05/07/24 13:13 CP [id number] 05/07/24 13:19 CP Document 05/14/24 10:01 MT [id number] 05/14/24 10:14 MT 04/23/24 04/30/24 05/07/24 08:51 13:31 13:13 - Today's Visit Information Type of service Follow-up Visit Follow-up Visit Follow-up Visit (Physician/STEWARDESSES TEACHER (Physician/STEWARDESSES TEACHER (Physician/STEWARDESSES TEACHER ) ) ) Arrival Mode Ambulatory Ambulatory Ambulatory Accompanied by self Patient Identification Verified (Name & Yes Yes ) Patient Requires Transmission-Based No Precautions Safety Precautions Finger Stick Blood Sugar(mg/dl) (if 152 indicated): Blood Sugar Stated by Patient Height and Weight Body Mass Index (BMI) 62.5 62.5 62.5 BMI Classification Obese Obese Obese Vital Signs Temperature (97.8 F-99.1 F) 98.8 F 97 F L 97.8 F Temperature Source Temporal Temporal Temporal Pulse Rate (60-100) 115 H 107 H 111 H Pulse Location Monitor Monitor Monitor Respiratory Rate (12-18) 18 18 18 Respiratory rate source Observation Observation Observation Oxygen Delivery Method Room Air Blood Pressure (90/60-120/80) 180/88 H 150/88 H 192/95 H Blood Pressure Mean (mm Hg) 118 108 127 Source Monitor Monitor Monitor Position Sitting Sitting Semi-Fowlers Blood Pressure Location Left Forearm Left Forearm Right Forearm History Since Last Visit- (Skip if this is Patient's initial visit) Have you changed medications since your No No last visit? Any new allergies or adverse reactions No No Had a fall/change in ADL's that may No No increase risk of falls Signs or symptoms of abuse and/or No No neglect since last visit Have you been in the hospital since your No No last visit? Has dressing in place as prescribed Yes Yes Has compression in place as prescribed Yes Yes Has offloadiing in place as prescribed N/A N/A Experienced any changes in pain level or No No management Left Footwear Regular Shoe Regular Shoe Right Footwear Regular Shoe Regular Shoe Pain Scale: 0-10 Numeric Is Patient Pain Free? Yes Yes No 05/14/24 10:01 - Today's Visit Information Type of service Follow-up Visit (Physician/STEWARDESSES TEACHER ) Arrival Mode Ambulatory Accompanied by self Patient Identification Verified (Name & Yes ) Patient Requires Transmission-Based Precautions Safety Precautions Fall Prevention Finger Stick Blood Sugar(mg/dl) (if indicated): Blood Sugar Height and Weight Body Mass Index (BMI) 62.5 BMI Classification Obese Vital Signs Temperature (97.8 F-99.1 F) 97.0 F L Temperature Source Temporal Pulse Rate (60-100) 112 H Pulse Location Monitor Respiratory Rate (12-18) 18 Respiratory rate source Observation Oxygen Delivery Method Room Air Blood Pressure (90/60-120/80) 165/90 H Blood Pressure Mean (mm Hg) 115 Source Monitor Position Sitting Blood Pressure Location Left Forearm History Since Last Visit- (Skip if this is Patient's initial visit) Have you changed medications since your last visit? Any new allergies or adverse reactions Had a fall/change in ADL's that may increase risk of falls Signs or symptoms of abuse and/or neglect since last visit Have you been in the hospital since your last visit? Has dressing in place as prescribed Yes Has compression in place as prescribed Yes Has offloadiing in place as prescribed Yes Experienced any changes in pain level or Yes management Left Footwear Regular Shoe Right Footwear Regular Shoe Pain Scale: 0-10 Numeric Is Patient Pain Free? Yes - Nurse 1 - General Ulcer Measurement Start: 04/23/24 08:51 Freq: Status: Active Protocol: Activity Type Activity Date Activity User E-sign Co-sign Detail Recorded Client Recorded Date Recorded By Document 04/23/24 08:51 KW fcg 04/23/24 09:05 KW Document 04/30/24 13:31 DC [id number] 04/30/24 13:37 MT Document 05/07/24 13:13 CP [id number] 05/07/24 13:19 CP Document 05/14/24 10:01 MT [id number] 05/14/24 10:14 MT 04/23/24 04/30/24 05/07/24 08:51 13:31 13:13 Wound Center Nurse 1 #1 R post LE- post-op cluster -Combined with (Name of Wound-Exactly 1 as it is documented) -Current Size (cm) - Length 1.7 1.8 0.5 -Current Size (cm) - Width 0.5 0.7 0.5 -Current Size (cm) - Depth 0.6 0.4 -Total Square Cm 0.85 1.26 0.25 -Date of Last Picture (Recall this 05/07/24 field) -Photo Taken -Tunneling -Undermining/Tunneling -Exudate Amt Medium Medium Small -Exudate Type Serosanguineous Serosanguineous Sanguineous -Wound Margin Thickened Thickened & Rolled Under -Granulation Amt Large (67-100%) Large (67-100%) Large (67-100%) -Granulation Quality [place] Pale,[place] -Slough/Fibrin Yes -Necrosis Amt Small (1-33%) Small (1-33%) Small (1-33%) -Necrotic Tissue Type Adherent Slough Adherent Slough Adherent Slough -Structure Exposed N/A -Texture (Rachele-wound Skin Appearance) Assessed Assessed No Abnormality -Moisture (Rachele-wound Skin Appearance) Assessed Assessed No Abnormality -Color (Rachele-wound Skin Appearance) Assessed Assessed No Abnormality -Temperature (Rachele-wound Skin No Abnormality No Abnormality No Abnormality Appearance) (Pt Warm) (Pt Warm) (Pt Warm) -Tenderness on Palpation (Rachele-wound No No No Skin Appearance) -Ulcer Cleansing Soap and Water Soap and Water Soap and Water -Foul Odor after Cleansing No No -Anesthetic Used 5% Lidocaine 4% Lidocaine 5% Lidocaine Gel Solution Gel Right Calf (cm) 70.5 62 Right Ankle (cm) 38 37.5 05/14/24 10:01 Wound Center Nurse 1 #1 R post LE- post-op cluster -Combined with (Name of Wound-Exactly as it is documented) -Current Size (cm) - Length 2 -Current Size (cm) - Width 1 -Current Size (cm) - Depth 0.9 -Total Square Cm 2 -Date of Last Picture (Recall this field) -Photo Taken No -Tunneling No -Undermining/Tunneling No -Exudate Amt Medium -Exudate Type Serosanguineous -Wound Margin Thickened & Rolled Under -Granulation Amt Large (67-100%) -Granulation Quality Pale,[place] -Slough/Fibrin -Necrosis Amt Small (1-33%) -Necrotic Tissue Type Adherent Slough -Structure Exposed -Texture (Rachele-wound Skin Appearance) Assessed -Moisture (Rachele-wound Skin Appearance) Assessed -Color (Rachele-wound Skin Appearance) Assessed -Temperature (Rachele-wound Skin No Abnormality Appearance) (Pt Warm) -Tenderness on Palpation (Rachele-wound Skin Appearance) -Ulcer Cleansing Soap and Water -Foul Odor after Cleansing No -Anesthetic Used 5% Lidocaine Gel Right Calf (cm) Right Ankle (cm) WC - Nurse 2 - General Ulcer CM Notes Start: 04/23/24 08:51 Freq: Status: Active Protocol: Activity Type Activity Date Activity User E-sign Co-sign Detail Recorded Client Recorded Date Recorded By Document 04/23/24 09:32 JF 000 04/23/24 09:35 Document 04/30/24 14:22 JF 0000 04/30/24 14:23 Document 05/07/24 13:30 [id number] 05/07/24 13:32 Document 05/14/24 10:19 [id number] 05/14/24 10:24 JF 04/23/24 04/30/24 05/07/24 09:32 14:22 13:30 Wound Center Nurse 2 #1 R post LE- post-op cluster -Time 09:32 14:23 13:31 -Correct Patient Yes Yes Yes -Correct Side, Site, Position Yes Yes Yes -Correct Procedure Yes Yes Yes -Procedure Performed Yes Yes Yes -Type of Procedure Debridement Debridement Debridement -Clinical Debridement Subcutaneous Subcutaneous Subcutaneous -Tissue Removed Subcutaneous Subcutaneous Subcutaneous -Post Debridement (cm) - Length 1.9 2.0 1.8 -Post Debridement (cm) - Width 0.8 0.7 0.8 -Post Debridement (cm) - Depth 0.6 0.6 0.8 -Total Square (Post) (cm) 1.52 1.40 1.44 -Area of Debridement (cm) - Length 1.9 2.0 1.8 -Area of Debridement (cm) - Width 0.8 0.7 0.8 -Total Square (Area) (cm) 1.52 1.40 1.44 -Tunneling No No No -Undermining/Tunneling No No No -Circular Undermining No No No -Wound/Ulcer Outcome Not Healed Not Healed Not Healed -Ulcer Cleansing Rinsed/ Rinsed/ Rinsed/ Irrigated with Irrigated with Irrigated with Saline Saline Saline -Foul Odor after Cleansing No No No -Bioengineered Tissue No No No -Bleeding Controlled with Pressure Pressure Silver Nitrate -Treatment Response Procedure Procedure Procedure Tolerated Well Tolerated Well Tolerated Well -Offloading No No No -Debridement - Subq, 1st 20sq cm Yes Yes Yes Pain Scale: 0-10 Numeric Is Patient Pain Free? Yes Yes Yes 05/14/24 10:19 Wound Center Nurse 2 #1 R post LE- post-op cluster -Time 10:19 -Correct Patient Yes -Correct Side, Site, Position Yes -Correct Procedure Yes -Procedure Performed Yes -Type of Procedure Debridement -Clinical Debridement Subcutaneous -Tissue Removed Subcutaneous -Post Debridement (cm) - Length 1.8 -Post Debridement (cm) - Width 0.6 -Post Debridement (cm) - Depth 0.4 -Total Square (Post) (cm) 1.08 -Area of Debridement (cm) - Length 1.8 -Area of Debridement (cm) - Width 0.6 -Total Square (Area) (cm) 1.08 -Tunneling No -Undermining/Tunneling No -Circular Undermining No -Wound/Ulcer Outcome Not Healed -Ulcer Cleansing Rinsed/ Irrigated with Saline -Foul Odor after Cleansing No -Bioengineered Tissue No -Bleeding Controlled with Pressure -Treatment Response Procedure Tolerated Well -Offloading No -Debridement - Subq, 1st 20sq cm Yes Pain Scale: 0-10 Numeric Is Patient Pain Free? Yes - Nurse 3 - General Ulcer D/C NN Start: 04/23/24 08:51 Freq: Status: Active Protocol: Activity Type Activity Date Activity User E-sign Co-sign Detail Recorded Client Recorded Date Recorded By Document 04/23/24 09:57 GM wc 04/23/24 09:58 GM Document 04/30/24 14:31 KW asfd 04/30/24 14:32 KW Document 05/07/24 13:55 KW [id number] 05/07/24 13:56 KW Document 05/14/24 10:52 MT [id number] 05/14/24 10:53 MT 04/23/24 04/30/24 05/07/24 09:57 14:31 13:55 Wound Care Center Nurse 3 #1 R post LE- post-op cluster -Ulcer Cleansing Not Cleansed -Negative Pressure Wound Therapy N/A -Primary Dressing Applied Optilok 6.5x10 Optilok 8x12 Optilok 6.5x10, Promogran Brandyn Matter -Other Dressing HYDROGEL -Primary Dressing Covered/Secured with Dry Gauze & Roll Gauze, Secured with Tape -Optilok 6.5x10 1 1 -Optilok 8x12 1 -Promogran Brandyn Matter 1 Left -Tubular Bandage Double Layer Single Layer Single Layer -Size of Tubigrip Used Size F Size F Size F -Size F ($) 2 1 1 Right -Lotion applied to leg before No compression wrap -Multi-Layered Wrap Application Multi-Layer Multi-Layer Multi-Layer Comp - Right ($ Comp - Right ($ Comp - Right ($ ) ) ) Pain Scale: 0-10 Numeric Is Patient Pain Free? Yes Yes Yes WC - Visit Discharge Discharge Condition Stable Stable Stable Ambulatory Status Ambulatory Ambulatory Ambulatory Transportation Private Auto Private Auto Private Auto Medication Reconcilliation completed & No No provided to patient/care provider Clinical Summary of Care Provided Yes Yes Yes 05/14/24 10:52 Wound Care Center Nurse 3 #1 R post LE- post-op cluster -Ulcer Cleansing -Negative Pressure Wound Therapy -Primary Dressing Applied Promogran Brandyn Matter -Other Dressing -Primary Dressing Covered/Secured with -Optilok 6.5x10 -Optilok 8x12 -Promogran Brandyn Matter 1 Left -Tubular Bandage -Size of Tubigrip Used -Size F ($) Right -Lotion applied to leg before compression wrap -Multi-Layered Wrap Application Multi-Layer Comp - Right ($ ) Pain Scale: 0-10 Numeric Is Patient Pain Free? 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 All findings were discussed with the patient. All questions were answered to the patient's satisfaction. Excisional debridement down to including subcutaneous tissue of the right posterior calf with a number 3 mm dermal curette without incident. Predebridement measurement was 1.7 x 0.5 x 0.3 cm. Postdebridement measurement is 1.8 x 0.6 x 0.4 cm. Ulceration was dressed with BRANDYN, hydrogel collagen and 3M multilayer compression wrap. Patient will continue to check her blood sugar daily and will continue strict blood sugar control to optimize healing. Follow-up at the wound care center with Dr. Lord in 1 week. (2) Lymphedema, not elsewhere classified: CODE(S): I89.0 - Lymphedema, not elsewhere classified (3) Acute painful diabetic polyneuropathy: CODE(S): E11.42 - Type 2 diabetes mellitus with diabetic polyneuropathy
== END 2024-05-17 23:59 | disposition home or self-care (01) ==
LOC: WC 10:00
PROVIDERS: PCP Internal Medicine; Referring Provider Internal Medicine; Visit Provider Podiatrist Foot & Ankle Surgery
DX: E11.622 Type 2 diabetes mellitus with other skin ulcer (principal); L97.213 Non-pressure chronic ulcer of right calf with necrosis of muscle; E11.42 Type 2 diabetes mellitus with diabetic polyneuropathy; T81.31XA Disruption of external operation (surgical) wound, not elsewhere classified, initial encounter; I89.0 Lymphedema, not elsewhere classified; Z79.84 Long term (current) use of oral hypoglycemic drugs; Z79.899 Other long term (current) drug therapy
CPT/HCPCS: 11042; 29581

== ENCOUNTER 2024-06-09 14:15 | Outpatient (RCR) | payer MEDICAID, SELFPAY | END 2024-06-16 23:59 | LOC: NS 14:15 | PROVIDERS: PCP Internal Medicine; Referring Provider Podiatrist Foot & Ankle Surgery; Visit Provider Podiatrist Foot & Ankle Surgery | DX: Z71.3 Dietary counseling and surveillance (principal); E11.42 Type 2 diabetes mellitus with diabetic polyneuropathy; E66.01 Morbid (severe) obesity due to excess calories; Z68.44 Body mass index [BMI] 60.0-69.9, adult | CPT/HCPCS: 97803 ==

== ENCOUNTER 2024-06-11 13:45 | Outpatient (RCR) | payer MEDICAID, SELFPAY ==
[2024-05-18 00:26] VITALS: BP 143/85; PULSE 113; RESP 18; TEMP 36.6; BMI 62.5
[2024-05-21 14:19] VITALS: BP 196/80; PULSE 116; RESP 20; TEMP 36.3; BMI 62.5
--- NOTE | 2024-05-21 14:39 | PN.PCM_ITS ---
History of Present Illness Date of Service: 05/21/24 Chief Complaint: Ulceration right posterior leg History of Wound: Ulceration right posterior leg Subjective Subjective Ms. Rodriguez is a 43-year-old diabetic female presenting to wound care center today at [facility] for follow-up evaluation of full-thickness wound to the posterior calf. Patient has been sick for the past 5 days and has been in bed due to a viral infection. Patient has been treated by outside clinician and is improved and has no fever during today's visit. Patient was lying in bed not elevating her bilateral lower extremity. She states that both of her legs were swollen. She admits to strict blood sugar control. Denies trauma. Denies constitutional symptoms. No other pedal complaints at this time. Objective Data Objective Data Vital Signs: Vital Signs Temp Pulse Resp BP O2 Del Method 97.3 F L 116 H 20 H 196/80 H Room Air 05/21/24 14:19 05/21/24 14:19 05/21/24 14:19 05/21/24 14:19 05/21/24 14:19 Oxygen Delivery Method Room Air Weight: 160.223 kg Body Mass Index (BMI) 62.5 Physical Exam Narrative Vascular: DP and PT pulses palpable. CFT is brisk. Nonpitting edema appreciated to right lower extremity. No erythema or proximal streaking is appreciated. Neurological: Light touch intact. Patient response to painful stimuli. Dermatological: Full-thickness ulceration measures right calf measuring 2.0 x 0.6 x 0.5 cm. Wound base is granular nature with sanguinous drainage after debridement. No evidence of erythema or proximal streaking. Excisional debridement down to including subcutaneous tissue of the right posterior calf with a number 3 mm dermal curette without incident. Predebridement measurement was 1.8 x 0.4 x 0.3 cm. Postdebridement measurement is 2.0 x 0.6 x 0.5 cm. Musculoskeletal: No pain with calf compression. Mild pain to palpation full- thickness ulceration right calf. Debridement Note Debridement Note Debridement Free Text: Excisional debridement down to including subcutaneous tissue of the right posterior calf with a number 3 mm dermal curette without incident. Predebridement measurement was 1.8 x 0.4 x 0.3 cm. Postdebridement measurement is 2.0 x 0.6 x 0.5 cm. Post-Debridement Measurements and Additional Note: Post-Debridement Measurements/Treatment - Nurse 1 - General Ulcer Assessment Start: 05/21/24 14:18 Freq: Status: Active Protocol: WATSON Activity Type Activity Date Activity User E-sign Co-sign Detail Recorded Client Recorded Date Recorded By Document 05/21/24 14:19 JOSE [id number] 05/21/24 14:26 05/21/24 14:19 - Today's Visit Information Type of service Follow-up Visit (Physician/SHOE STITCHER ) Arrival Mode Ambulatory Patient Identification Verified (Name & Yes ) Height and Weight Body Mass Index (BMI) 62.5 BMI Classification Obese Vital Signs Temperature (97.8 F-99.1 F) 97.3 F L Temperature Source Temporal Pulse Rate (60-100) 116 H Pulse Location Monitor Respiratory Rate (12-18) 20 H Respiratory rate source Observation Oxygen Delivery Method Room Air Blood Pressure (90/60-120/80) 196/80 H Blood Pressure Mean (mm Hg) 118 Source Monitor Position Sitting Blood Pressure Location Left Arm History Since Last Visit- (Skip if this is Patient's initial visit) Have you changed medications since your No last visit? Any new allergies or adverse reactions No Had a fall/change in ADL's that may No increase risk of falls Signs or symptoms of abuse and/or No neglect since last visit Have you been in the hospital since your No last visit? Has dressing in place as prescribed Yes Has compression in place as prescribed Yes Has offloadiing in place as prescribed N/A Experienced any changes in pain level or No management Left Footwear Regular Shoe Right Footwear Regular Shoe Pain Scale: 0-10 Numeric Is Patient Pain Free? Yes - Nurse 1 - General Ulcer Measurement Start: 05/21/24 14:18 Freq: Status: Active Protocol: Activity Type Activity Date Activity User E-sign Co-sign Detail Recorded Client Recorded Date Recorded By Document 05/21/24 14:19 KW [id number] 05/21/24 14:26 05/21/24 14:19 Wound Center Nurse 1 #1 R post LE- post-op cluster -Current Size (cm) - Length 1.7 -Current Size (cm) - Width 0.5 -Current Size (cm) - Depth 0.6 -Total Square Cm 0.85 -Exudate Amt Large -Exudate Type Serosanguineous -Wound Margin Distinct, Outline Attached -Granulation Amt Large (67-100%) -Granulation Quality [place] -Necrosis Amt Small (1-33%) -Necrotic Tissue Type Adherent Slough -Texture (Rachele-wound Skin Appearance) Assessed -Moisture (Rachele-wound Skin Appearance) Assessed -Color (Rachele-wound Skin Appearance) Assessed -Temperature (Rachele-wound Skin No Abnormality Appearance) (Pt Warm) -Tenderness on Palpation (Rachele-wound No Skin Appearance) -Ulcer Cleansing Soap and Water -Foul Odor after Cleansing No -Anesthetic Used 5% Lidocaine Gel WC - Nurse 2 - General Ulcer CM Notes Start: 05/21/24 14:18 Freq: Status: Active Protocol: Activity Type Activity Date Activity User E-sign Co-sign Detail Recorded Client Recorded Date Recorded By Document 05/21/24 14:32 RUBA [id number] 05/21/24 14:34 RUBA 05/21/24 14:32 Wound Center Nurse 2 -Time 14:32 -Correct Patient Yes -Correct Side, Site, Position Yes -Correct Procedure Yes -Procedure Performed Yes -Type of Procedure Debridement -Clinical Debridement Subcutaneous -Tissue Removed Subcutaneous -Post Debridement (cm) - Length 2.0 -Post Debridement (cm) - Width 0.6 -Post Debridement (cm) - Depth 0.5 -Total Square (Post) (cm) 1.20 -Area of Debridement (cm) - Length 2.0 -Area of Debridement (cm) - Width 0.6 -Total Square (Area) (cm) 1.20 -Tunneling No -Undermining/Tunneling No -Circular Undermining No -Wound/Ulcer Outcome Not Healed -Ulcer Cleansing Rinsed/ Irrigated with Saline -Foul Odor after Cleansing No -Bioengineered Tissue No -Bleeding Controlled with Pressure -Treatment Response Procedure Tolerated Well -Offloading No -Debridement - Subq, 1st 20sq cm Yes Pain Scale: 0-10 Numeric Is Patient Pain Free? 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 All findings were discussed with the patient. All questions were answered to the patient's satisfaction. Excisional debridement down to including subcutaneous tissue of the right posterior calf with a number 3 mm dermal curette without incident. Predebridement measurement was 1.8 x 0.4 x 0.3 cm. Postdebridement measurement is 2.0 x 0.6 x 0.5 cm. Right lower extremities were cleaned and patted dry. The ulceration was dressed with moist Hannah hydrogel and 3M multilayer compression wrap. At this time we will begin authorization from home health care so that the patient can have every other day dressing changes performed at home with a bilateral 3M compression wraps. Patient will continue strict blood sugar control. Follow-up at the wound care center with Dr. Lord in 1 week until we get approval for home health care and every other day dressing changes. After approval has been received the patient will follow-up every 2 to 3 weeks for continued evaluation and care. 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
[2024-05-28 14:07] VITALS: BP 176/77; PULSE 116; RESP 20; TEMP 36.1; BMI 62.5
--- NOTE | 2024-05-28 16:22 | PCM.WC.PN ---
History of Present Illness Date of Service: 05/28/24 Chief Complaint: Ulceration right posterior leg History of Wound: Ulceration right posterior leg Subjective Subjective Ms. Rodriguez is a 43-year-old diabetic female presenting to wound care center today for follow-up evaluation of right posterior calf wound. She is left her dressing clean dry and intact. Blood sugar well-controlled. Patient states she started working out in the sore all over her body as she knows that she is out of shape per her own words. She denies trauma. Denies constitutional symptoms. No other pedal complaints at this time. Objective Data Objective Data Vital Signs: Vital Signs Temp Pulse Resp BP O2 Del Method 96.9 F L 116 H 20 H 176/77 H Room Air 05/28/24 14:07 05/28/24 14:07 05/28/24 14:07 05/28/24 14:07 05/28/24 14:07 Oxygen Delivery Method Room Air Weight: 160.223 kg Body Mass Index (BMI) 62.5 Physical Exam Narrative Vascular: DP and PT pulses palpable. CFT is brisk. Nonpitting edema appreciated to right lower extremity. No erythema or proximal streaking is appreciated. Neurological: Light touch intact. Patient response to painful stimuli. Dermatological: Full-thickness ulceration measures right calf measuring 1.8 x 0.7 x 0.5 cm. Wound base is granular nature with sanguinous drainage after debridement. No evidence of erythema or proximal streaking. Excisional debridement down to including subcutaneous tissue of the right posterior calf with a number 3 mm dermal curette without incident. Predebridement measurement was 1.7 x 0.6 x 0.3 cm. Postdebridement measurement is 1.8 x 0.7 x 0.5 cm. Musculoskeletal: No pain with calf compression. Mild pain to palpation full-thickness ulceration right calf. Debridement Note Debridement Note Debridement Free Text: Excisional debridement down to including subcutaneous tissue of the right posterior calf with a number 3 mm dermal curette without incident. Predebridement measurement was 1.7 x 0.6 x 0.3 cm. Postdebridement measurement is 1.8 x 0.7 x 0.5 cm. Post-Debridement Measurements and Additional Note: Post-Debridement Measurements/Treatment WC - Nurse 1 - General Ulcer Assessment Start: 05/21/24 14:18 Freq: Status: Active Protocol: WC.LOWEXT Activity Type Activity Date Activity User E-sign Co-sign Detail Recorded Client Recorded Date Recorded By Document 05/21/24 14:19 [id number] 05/21/24 14:26 Document 05/28/24 14:07 [facility] [id number] 05/28/24 14:13 [facility] 05/21/24 05/28/24 14:19 14:07 - Today's Visit Information Type of service Follow-up Visit Follow-up Visit (Physician/CATALOG LIBRARIAN (Physician/CATALOG LIBRARIAN ) ) Arrival Mode Ambulatory Ambulatory Transfer Assistance None Patient Identification Verified (Name & Yes Yes ) Patient Requires Transmission-Based No Precautions Height and Weight Body Mass Index (BMI) 62.5 62.5 BMI Classification Obese Obese Vital Signs Temperature (97.8 F-99.1 F) 97.3 F L 96.9 F L Temperature Source Temporal Temporal Pulse Rate (60-100) 116 H 116 H Pulse Location Monitor Monitor Respiratory Rate (12-18) 20 H 20 H Respiratory rate source Observation Observation Oxygen Delivery Method Room Air Room Air Blood Pressure (90/60-120/80) 196/80 H 176/77 H Blood Pressure Mean (mm Hg) 118 110 Source Monitor Monitor Position Sitting Sitting Blood Pressure Location Left Arm History Since Last Visit- (Skip if this is Patient's initial visit) Have you changed medications since your No No last visit? Any new allergies or adverse reactions No No Had a fall/change in ADL's that may No No increase risk of falls Signs or symptoms of abuse and/or No No neglect since last visit Have you been in the hospital since your No No last visit? Has dressing in place as prescribed Yes Yes Has compression in place as prescribed Yes Yes Has offloadiing in place as prescribed N/A N/A Experienced any changes in pain level or No No management Left Footwear Regular Shoe Slipper Right Footwear Regular Shoe Slipper Pain Scale: 0-10 Numeric Is Patient Pain Free? Yes Yes - Nurse 1 - General Ulcer Measurement Start: 05/21/24 14:18 Freq: Status: Active Protocol: Activity Type Activity Date Activity User E-sign Co-sign Detail Recorded Client Recorded Date Recorded By Document 05/21/24 14:19 [id number] 05/21/24 14:26 Document 05/28/24 14:07 [facility] [id number] 05/28/24 14:13 BMF 05/21/24 05/28/24 14:19 14:07 Wound Center Nurse 1 #1 R post LE- post-op cluster -Combined with other wound No -Current Size (cm) - Length 1.7 2 -Current Size (cm) - Width 0.5 0.5 -Current Size (cm) - Depth 0.6 0.5 -Total Square Cm 0.85 1.0 -Date of Last Picture (Recall this 05/28/24 field) -Photo Taken Yes -Epithelialization None Present -Tunneling No -Undermining/Tunneling No -Circular Undermining No -Exudate Amt Large Large -Exudate Type Serosanguineous Serosanguineous -Wound Margin Distinct, Distinct, Outline Outline Attached Attached -Granulation Amt Large (67-100%) Medium (34-66%) -Granulation Quality [place] -Slough/Fibrin Yes -Necrosis Amt Small (1-33%) Medium (34-66%) -Necrotic Tissue Type Adherent Slough Adherent Slough -Texture (Rachele-wound Skin Appearance) Assessed Assessed, Scarring -Moisture (Rachele-wound Skin Appearance) Assessed Assessed, Maceration,Dry/ Scaly -Color (Rachele-wound Skin Appearance) Assessed Assessed -Temperature (Rachele-wound Skin No Abnormality No Abnormality Appearance) (Pt Warm) (Pt Warm) -Tenderness on Palpation (Rachele-wound No No Skin Appearance) -Ulcer Cleansing Soap and Water Soap and Water -Foul Odor after Cleansing No No -Anesthetic Used 5% Lidocaine 5% Lidocaine Gel Gel Lower Limb Edema Present Yes Right Calf (cm) 65 Right Ankle (cm) 48 WC - Nurse 2 - General Ulcer CM Notes Start: 05/21/24 14:18 Freq: Status: Active Protocol: Activity Type Activity Date Activity User E-sign Co-sign Detail Recorded Client Recorded Date Recorded By Document 05/21/24 14:32 JF [id number] 05/21/24 14:34 JF Document 05/28/24 14:40 [id number] 05/28/24 14:42 JF 05/21/24 05/28/24 14:32 14:40 Wound Center Nurse 2 #1 R post LE- post-op cluster -Time 14:32 14:41 -Correct Patient Yes Yes -Correct Side, Site, Position Yes Yes -Correct Procedure Yes Yes -Procedure Performed Yes Yes -Type of Procedure Debridement Debridement -Clinical Debridement Subcutaneous Subcutaneous -Tissue Removed Subcutaneous Subcutaneous -Post Debridement (cm) - Length 2.0 1.8 -Post Debridement (cm) - Width 0.6 0.7 -Post Debridement (cm) - Depth 0.5 0.5 -Total Square (Post) (cm) 1.20 1.26 -Area of Debridement (cm) - Length 2.0 1.8 -Area of Debridement (cm) - Width 0.6 0.7 -Total Square (Area) (cm) 1.20 1.26 -Tunneling No No -Undermining/Tunneling No No -Circular Undermining No No -Wound/Ulcer Outcome Not Healed Not Healed -Ulcer Cleansing Rinsed/ Rinsed/ Irrigated with Irrigated with Saline Saline -Foul Odor after Cleansing No No -Bioengineered Tissue No No -Bleeding Controlled with Pressure Pressure -Treatment Response Procedure Procedure Tolerated Well Tolerated Well -Offloading No No -Debridement - Subq, 1st 20sq cm Yes Yes Pain Scale: 0-10 Numeric Is Patient Pain Free? Yes Yes - Nurse 3 - General Ulcer D/C NN Start: 05/21/24 14:18 Freq: Status: Active Protocol: Activity Type Activity Date Activity User E-sign Co-sign Detail Recorded Client Recorded Date Recorded By Document 05/21/24 15:00 [id number] 05/21/24 15:03 Document 05/28/24 14:50 [facility] [id number] 05/28/24 14:51 [facility] 05/21/24 05/28/24 15:00 14:50 Wound Care Center Nurse 3 #1 R post LE- post-op cluster -Ulcer Cleansing Rinsed/ Irrigated with Saline -Foul Odor after Cleansing No -Primary Dressing Applied Optilok 6.5x10, Promogran Promogran Hannah Matter Hannah Matter -Primary Dressing Covered/Secured with Dry Gauze & Dry Gauze Roll Gauze, Secured with Tape -Other Covering per msl master certified rv technician -Optilok 6.5x10 1 -Promogran Hannah Matter 1 1 Right -Multi-Layered Wrap Application Multi-Layer Multi-Layer Comp - Right ($ Comp - Right ($ ) ) -Other per msl master certified rv technician Treatment Response Procedure Tolerated Well Pain Scale: 0-10 Numeric Is Patient Pain Free? 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 All findings were discussed with the patient. All questions were answered to the patient's satisfaction. Excisional debridement down to including subcutaneous tissue of the right posterior calf with a number 3 mm dermal curette without incident. Predebridement measurement was 1.7 x 0.6 x 0.3 cm. Postdebridement measurement is 1.8 x 0.7 x 0.5 cm. At this time we will begin authorization from home health care so that the patient can have every other day dressing changes performed at home with a bilateral 3M compression wraps. Patient will continue strict blood sugar control. Follow-up at the wound care center with Dr. Lord in 1 week until we get approval for home health care and every other day dressing changes. After approval has been received the patient will follow-up every 2 to 3 weeks for continued evaluation and care. (2) Lymphedema, not elsewhere classified: CODE(S): I89.0 - Lymphedema, not elsewhere classified PLAN: If the patient continues to have a nonhealing ulcer to the right posterior calf will most likely recommend referral to plastic surgery, Rome Ramírez MD for evaluation of the patient's uncontrolled lymphedema to the right lower extremity. (3) Diabetes mellitus with diabetic polyneuropathy: CODE(S): E11.42 - Type 2 diabetes mellitus with diabetic polyneuropathy QUALIFIERS: Diabetes mellitus type: type 2 Diabetes mellitus prison insulin use: with termite treater use Qualified Code(s): E11.42 - Type 2 diabetes mellitus with diabetic polyneuropathy; Z79.4 - [facility] (current) use of insulin
--- NOTE | 2024-05-29 09:24 | WC ---
PHOTO 05/28/24 RIGHT POST LE P/O
[2024-06-04 14:45] VITALS: BP 137/72; PULSE 112; RESP 20; TEMP 36.3; BMI 62.5
--- NOTE | 2024-06-04 15:52 | PN.PCM_ITS ---
History of Present Illness Date of Service: 06/04/24 Chief Complaint: Ulceration right posterior leg History of Wound: Ulceration right posterior leg Subjective Subjective Ms. Rodriguez is a 43-year-old diabetic female presenting to wound care center today for follow-up evaluation for the right calf ulceration. Patient is been compliant with keeping her dressing clean dry and intact. Blood sugar well under control. Denies trauma. Denies constitutional symptoms. No other pedal complaints at this time. Objective Data Objective Data Vital Signs: Vital Signs Temp Pulse Resp BP O2 Del Method 97.4 F L 112 H 20 H 137/72 H Room Air 06/04/24 14:45 06/04/24 14:45 06/04/24 14:45 06/04/24 14:45 06/04/24 14:45 Oxygen Delivery Method Room Air Weight: 160.223 kg Body Mass Index (BMI) 62.5 Physical Exam Narrative Vascular: DP and PT pulses palpable. CFT is brisk. Nonpitting edema appreciated to right lower extremity. No erythema or proximal streaking is appreciated. Neurological: Light touch intact. Patient response to painful stimuli. Dermatological: Full-thickness ulceration measures right calf measuring 1.8 x 0.4 x 0.9 cm. Wound base is granular nature with sanguinous drainage after debridement. No evidence of erythema or proximal streaking. Excisional debridement down to including subcutaneous tissue of the right posterior calf with a number 3 mm dermal curette without incident. Predebridement measurement was 1.6 x 0.3 x 0.8 cm. Postdebridement measurement is 1.8 x 0.4 x 0.9 cm. Musculoskeletal: No pain with calf compression. Mild pain to palpation full- thickness ulceration right calf. Debridement Note Debridement Note Debridement Free Text: Excisional debridement down to including subcutaneous tis brianna of the right posterior calf with a number 3 mm dermal curette without incident. Predebridement measurement was 1.6 x 0.3 x 0.8 cm. Postdebridement measurement is 1.8 x 0.4 x 0.9 cm. Post-Debridement Measurements and Additional Note: Post-Debridement Measurements/Treatment PANCHITO - Nurse 1 - General Ulcer Assessment Start: 05/21/24 14:18 Freq: Status: Active Protocol: WATSON Activity Type Activity Date Activity User E-sign Co-sign Detail Recorded Client Recorded Date Recorded By Document 05/21/24 14:19 KW [id number] 05/21/24 14:26 KW Document 05/28/24 14:07 BM [id number] 05/28/24 14:13 BM Document 06/04/24 14:45 [facility] [id number] 06/04/24 14:55 BMF 05/21/24 05/28/24 06/04/24 14:19 14:07 14:45 WC - Today's Visit Information Type of service Follow-up Visit Follow-up Visit Follow-up Visit (Physician/MACARONI MAKER (Physician/MACARONI MAKER (Physician/MACARONI MAKER ) ) ) Arrival Mode Ambulatory Ambulatory Ambulatory Transfer Assistance None None Patient Identification Verified (Name & Yes Yes Yes ) Patient Requires Transmission-Based No No Precautions Height and Weight Body Mass Index (BMI) 62.5 62.5 62.5 BMI Classification Obese Obese Obese Vital Signs Temperature (97.8 F-99.1 F) 97.3 F L 96.9 F L 97.4 F L Temperature Source Temporal Temporal Temporal Pulse Rate (60-100) 116 H 116 H 112 H Pulse Location Monitor Monitor Monitor Respiratory Rate (12-18) 20 H 20 H 20 H Respiratory rate source Observation Observation Observation Oxygen Delivery Method Room Air Room Air Room Air Blood Pressure (90/60-120/80) 196/80 H 176/77 H 137/72 H Blood Pressure Mean (mm Hg) 118 110 93 Source Monitor Monitor Monitor Position Sitting Sitting Sitting Blood Pressure Location Left Arm History Since Last Visit- (Skip if this is Patient's initial visit) Have you changed medications since your No No last visit? Any new allergies or adverse reactions No No No Had a fall/change in ADL's that may No No No increase risk of falls Signs or symptoms of abuse and/or No No No neglect since last visit Have you been in the hospital since your No No No last visit? Has dressing in place as prescribed Yes Yes Yes Has compression in place as prescribed Yes Yes Yes Has offloadiing in place as prescribed N/A N/A N/A Experienced any changes in pain level or No No No management Left Footwear Regular Shoe Slipper Slipper Right Footwear Regular Shoe Slipper Slipper Pain Scale: 0-10 Numeric Is Patient Pain Free? Yes Yes Yes WC - Nurse 1 - General Ulcer Measurement Start: 05/21/24 14:18 Freq: Status: Active Protocol: Activity Type Activity Date Activity User E-sign Co-sign Detail Recorded Client Recorded Date Recorded By Document 05/21/24 14:19 [id number] 05/21/24 14:26 Document 05/28/24 14:07 [facility] [id number] 05/28/24 14:13 BM Document 06/04/24 14:45 [facility] [id number] 06/04/24 14:55 [facility] 05/21/24 05/28/24 06/04/24 14:19 14:07 14:45 Wound Center Nurse 1 #1 R post LE- post-op cluster -Combined with other wound No No -Current Size (cm) - Length 1.7 2 1.1 -Current Size (cm) - Width 0.5 0.5 0.3 -Current Size (cm) - Depth 0.6 0.5 0.5 -Total Square Cm 0.85 1.0 0.33 -Date of Last Picture (Recall this 05/28/24 06/04/24 field) -Photo Taken Yes Yes -Epithelialization None Present None Present -Tunneling No No -Undermining/Tunneling No No -Circular Undermining No No -Exudate Amt Large Large Large -Exudate Type Serosanguineous Serosanguineous Serous -Wound Margin Distinct, Distinct, Thickened & Outline Outline Rolled Under Attached Attached -Granulation Amt Large (67-100%) Medium (34-66%) Medium (34-66%) -Granulation Quality [place] -Slough/Fibrin Yes Yes -Necrosis Amt Small (1-33%) Medium (34-66%) Medium (34-66%) -Necrotic Tissue Type Adherent Slough Adherent Slough Adherent Slough -Texture (Rachele-wound Skin Appearance) Assessed Assessed, Assessed Scarring -Moisture (Rachele-wound Skin Appearance) Assessed Assessed, Assessed, Maceration,Dry/ Maceration, Scaly Weeping -Color (Rachele-wound Skin Appearance) Assessed Assessed Assessed, Erythema -Temperature (Rachele-wound Skin No Abnormality No Abnormality No Abnormality Appearance) (Pt Warm) (Pt Warm) (Pt Warm) -Tenderness on Palpation (Rachele-wound No No No Skin Appearance) -Ulcer Cleansing Soap and Water Soap and Water Soap and Water -Foul Odor after Cleansing No No No -Anesthetic Used 5% Lidocaine 5% Lidocaine 5% Lidocaine Gel Gel Gel Lower Limb Edema Present Yes Yes Right Calf (cm) 65 64.7 Right Ankle (cm) 48 32.8 - Nurse 2 - General Ulcer CM Notes Start: 05/21/24 14:18 Freq: Status: Active Protocol: Activity Type Activity Date Activity User E-sign Co-sign Detail Recorded Client Recorded Date Recorded By Document 05/21/24 14:32 [id number] 05/21/24 14:34 Document 05/28/24 14:40 [id number] 05/28/24 14:42 Document 06/04/24 15:08 [id number] 06/04/24 15:11 05/21/24 05/28/24 06/04/24 14:32 14:40 15:08 Wound Center Nurse 2 #1 R post LE- post-op cluster -Time 14:32 14:41 15:08 -Correct Patient Yes Yes Yes -Correct Side, Site, Position Yes Yes Yes -Correct Procedure Yes Yes Yes -Procedure Performed Yes Yes Yes -Type of Procedure Debridement Debridement Debridement -Clinical Debridement Subcutaneous Subcutaneous Subcutaneous -Tissue Removed Subcutaneous Subcutaneous Subcutaneous -Post Debridement (cm) - Length 2.0 1.8 1.8 -Post Debridement (cm) - Width 0.6 0.7 0.4 -Post Debridement (cm) - Depth 0.5 0.5 0.9 -Total Square (Post) (cm) 1.20 1.26 0.72 -Area of Debridement (cm) - Length 2.0 1.8 1.8 -Area of Debridement (cm) - Width 0.6 0.7 0.4 -Total Square (Area) (cm) 1.20 1.26 0.72 -Tunneling No No No -Undermining/Tunneling No No No -Circular Undermining No No No -Wound/Ulcer Outcome Not Healed Not Healed Not Healed -Ulcer Cleansing Rinsed/ Rinsed/ Rinsed/ Irrigated with Irrigated with Irrigated with Saline Saline Saline -Foul Odor after Cleansing No No No -Bioengineered Tissue No No No -Bleeding Controlled with Pressure Pressure Pressure -Treatment Response Procedure Procedure Procedure Tolerated Well Tolerated Well Tolerated Well -Offloading No No No -Debridement - Subq, 1st 20sq cm Yes Yes Yes Pain Scale: 0-10 Numeric Is Patient Pain Free? Yes Yes Yes - Nurse 3 - General Ulcer D/C NN Start: 05/21/24 14:18 Freq: Status: Active Protocol: Activity Type Activity Date Activity User E-sign Co-sign Detail Recorded Client Recorded Date Recorded By Document 05/21/24 15:00 KW [id number] 05/21/24 15:03 KW Document 05/28/24 14:50 [facility] [id number] 05/28/24 14:51 BM Document 06/04/24 15:28 [facility] [id number] 06/04/24 15:29 [facility] 05/21/24 05/28/24 06/04/24 15:00 14:50 15:28 Wound Care Center Nurse 3 #1 R post LE- post-op cluster -Ulcer Cleansing Rinsed/ Irrigated with Saline -Foul Odor after Cleansing No -Primary Dressing Applied Optilok 6.5x10, Promogran Fibracol Plus Promogran Hannah Matter 4x4,Optilok 6. Hannah Matter 5x10 -Other Dressing kerlix -Primary Dressing Covered/Secured with Dry Gauze & Dry Gauze Roll Gauze, Secured with Tape -Other Covering per msl stock parts inspector -Fibracol Plus 4x4 1 -Nugauze, Plain 1/2in 1 -Optilok 6.5x10 1 1 -Promogran Hannah Matter 1 1 Right -Multi-Layered Wrap Application Multi-Layer Multi-Layer Multi-Layer Comp - Right ($ Comp - Right ($ Comp - Right ($ ) ) ) -Other per msl stock parts inspector Treatment Response Procedure Procedure Tolerated Well Tolerated Well Pain Scale: 0-10 Numeric Is Patient Pain Free? 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 All findings were discussed with the patient. All questions were answered to the patient's satisfaction. Excisional debridement down to including subcutaneous tissue of the right posterior calf with a number 3 mm dermal curette without incident. Predebridement measurement was 1.6 x 0.3 x 0.8 cm. Postdebridement measurement is 1.8 x 0.4 x 0.9 cm. At this time we will begin authorization from home health care so that the patient can have every other day dressing changes performed at home with a bilateral 3M compression wraps. Patient will continue strict blood sugar control. Follow-up at the wound care center with Dr. Lord in 1 week until we get approval for home health care and every other day dressing changes. After approval has been received the patient will follow-up every 2 to 3 weeks for continued evaluation and care. (2) Lymphedema, not elsewhere classified: CODE(S): I89.0 - Lymphedema, not elsewhere classified (3) Diabetes mellitus with diabetic polyneuropathy: CODE(S): E11.42 - Type 2 diabetes mellitus with diabetic polyneuropathy QUALIFIERS: Diabetes mellitus terminal makeup operator insulin use: with terminal makeup operator use Diabetes mellitus type: type 2 Qualified Code(s): E11.42 - Type 2 diabetes mellitus with diabetic polyneuropathy; Z79.4 - superintendent marine oil terminal (current) use of insulin
--- NOTE | 2024-06-05 08:37 | WC ---
PHOTO 06/04/24 RIGHT LATERAL LEG
[2024-06-11 13:50] VITALS: BP 166/82; PULSE 122; RESP 18; TEMP 35.6; BMI 62.5
--- NOTE | 2024-06-11 15:14 | PCM.WC.PN ---
History of Present Illness Date of Service: 06/11/24 Chief Complaint: Ulceration right posterior leg History of Wound: Ulceration right posterior leg Subjective Subjective Mrs. Rodriguez is a 43-year-old diabetic female presenting to wound care center today for follow-up evaluation of full-thickness wound to the posterior right calf. She has been compliant with her dressing and left clean dry and intact. Her blood sugars well-controlled. She denies any smoking. Denies constitutional symptoms. No other pedal complaints at this time. Objective Data Objective Data Vital Signs: Vital Signs Temp Pulse Resp BP O2 Del Method 96.0 F L 122 H 18 166/82 H Room Air 06/11/24 13:50 06/11/24 13:50 06/11/24 13:50 06/11/24 13:50 06/11/24 13:50 Oxygen Delivery Method Room Air Weight: 160.223 kg Body Mass Index (BMI) 62.5 Physical Exam Narrative Vascular: DP and PT pulses palpable. CFT is brisk. Nonpitting edema appreciated to right lower extremity. No erythema or proximal streaking is appreciated. Neurological: Light touch intact. Patient response to painful stimuli. Dermatological: Full-thickness ulceration measures right calf measuring 1.4 x 0.6 x 0.4 cm. Wound base is granular nature with sanguinous drainage after debridement. No evidence of erythema or proximal streaking. Excisional debridement down to including subcutaneous tissue of the right posterior calf with a number 3 mm dermal curette without incident. Predebridement measurement was 1.3 x 0.5 x 0.3 cm. Postdebridement measurement is 1.4 x 0.6 x 0.4 cm. Musculoskeletal: No pain with calf compression. Mild pain to palpation full-thickness ulceration right calf. Debridement Note Debridement Note Debridement Free Text: Excisional debridement down to including subcutaneous tissue of the right posterior calf with a number 3 mm dermal curette without incident. Predebridement measurement was 1.3 x 0.5 x 0.3 cm. Postdebridement measurement is 1.4 x 0.6 x 0.4 cm. Post-Debridement Measurements and Additional Note: Post-Debridement Measurements/Treatment PANCHITO - Nurse 1 - General Ulcer Assessment Start: 05/21/24 14:18 Freq: Status: Active Protocol: WATSON Activity Type Activity Date Activity User E-sign Co-sign Detail Recorded Client Recorded Date Recorded By Document 05/21/24 14:19 KW [id number] 05/21/24 14:26 KW Document 05/28/24 14:07 [facility] [id number] 05/28/24 14:13 [facility] Document 06/04/24 14:45 [facility] [id number] 06/04/24 14:55 [facility] Document 06/11/24 13:50 KW [id number] 06/11/24 14:01 KW 05/21/24 05/28/24 06/04/24 14:19 14:07 14:45 WC - Today's Visit Information Type of service Follow-up Visit Follow-up Visit Follow-up Visit (Physician/DIDACTIC INSTRUCTOR (Physician/DIDACTIC INSTRUCTOR (Physician/DIDACTIC INSTRUCTOR ) ) ) Arrival Mode Ambulatory Ambulatory Ambulatory Transfer Assistance None None Patient Identification Verified (Name & Yes Yes Yes ) Patient Requires Transmission-Based No No Precautions Height and Weight Body Mass Index (BMI) 62.5 62.5 62.5 BMI Classification Obese Obese Obese Vital Signs Temperature (97.8 F-99.1 F) 97.3 F L 96.9 F L 97.4 F L Temperature Source Temporal Temporal Temporal Pulse Rate (60-100) 116 H 116 H 112 H Pulse Location Monitor Monitor Monitor Respiratory Rate (12-18) 20 H 20 H 20 H Respiratory rate source Observation Observation Observation Oxygen Delivery Method Room Air Room Air Room Air Blood Pressure (90/60-120/80) 196/80 H 176/77 H 137/72 H Blood Pressure Mean (mm Hg) 118 110 93 Source Monitor Monitor Monitor Position Sitting Sitting Sitting Blood Pressure Location Left Arm History Since Last Visit- (Skip if this is Patient's initial visit) Have you changed medications since your No No last visit? Any new allergies or adverse reactions No No No Had a fall/change in ADL's that may No No No increase risk of falls Signs or symptoms of abuse and/or No No No neglect since last visit Have you been in the hospital since your No No No last visit? Has dressing in place as prescribed Yes Yes Yes Has compression in place as prescribed Yes Yes Yes Has offloadiing in place as prescribed N/A N/A N/A Experienced any changes in pain level or No No No management Left Footwear Regular Shoe Slipper Slipper Right Footwear Regular Shoe Slipper Slipper Pain Scale: 0-10 Numeric Is Patient Pain Free? Yes Yes Yes 06/11/24 13:50 - Today's Visit Information Type of service Follow-up Visit (Physician/DIDACTIC INSTRUCTOR ) Arrival Mode Ambulatory Transfer Assistance Patient Identification Verified (Name & Yes ) Patient Requires Transmission-Based Precautions Height and Weight Body Mass Index (BMI) 62.5 BMI Classification Obese Vital Signs Temperature (97.8 F-99.1 F) 96.0 F L Temperature Source Temporal Pulse Rate (60-100) 122 H Pulse Location Monitor Respiratory Rate (12-18) 18 Respiratory rate source Observation Oxygen Delivery Method Room Air Blood Pressure (90/60-120/80) 166/82 H Blood Pressure Mean (mm Hg) 110 Source Monitor Position Sitting Blood Pressure Location Left Forearm History Since Last Visit- (Skip if this is Patient's initial visit) Have you changed medications since your No last visit? Any new allergies or adverse reactions No Had a fall/change in ADL's that may No increase risk of falls Signs or symptoms of abuse and/or No neglect since last visit Have you been in the hospital since your No last visit? Has dressing in place as prescribed Yes Has compression in place as prescribed Yes Has offloadiing in place as prescribed N/A Experienced any changes in pain level or No management Left Footwear Regular Shoe Right Footwear Regular Shoe Pain Scale: 0-10 Numeric Is Patient Pain Free? Yes - Nurse 1 - General Ulcer Measurement Start: 05/21/24 14:18 Freq: Status: Active Protocol: Activity Type Activity Date Activity User E-sign Co-sign Detail Recorded Client Recorded Date Recorded By Document 05/21/24 14:19 [id number] 05/21/24 14:26 Document 05/28/24 14:07 [facility] [id number] 05/28/24 14:13 [facility] Document 06/04/24 14:45 [facility] [id number] 06/04/24 14:55 [facility] Document 06/11/24 13:50 [id number] 06/11/24 14:01 05/21/24 05/28/24 06/04/24 14:19 14:07 14:45 Wound Center Nurse 1 #1 R post LE- post-op cluster -Combined with other wound No No -Current Size (cm) - Length 1.7 2 1.1 -Current Size (cm) - Width 0.5 0.5 0.3 -Current Size (cm) - Depth 0.6 0.5 0.5 -Total Square Cm 0.85 1.0 0.33 -Date of Last Picture (Recall this 05/28/24 06/04/24 field) -Photo Taken Yes Yes -Epithelialization None Present None Present -Tunneling No No -Undermining/Tunneling No No -Circular Undermining No No -Exudate Amt Large Large Large -Exudate Type Serosanguineous Serosanguineous Serous -Wound Margin Distinct, Distinct, Thickened & Outline Outline Rolled Under Attached Attached -Granulation Amt Large (67-100%) Medium (34-66%) Medium (34-66%) -Granulation Quality [place] -Slough/Fibrin Yes Yes -Necrosis Amt Small (1-33%) Medium (34-66%) Medium (34-66%) -Necrotic Tissue Type Adherent Slough Adherent Slough Adherent Slough -Texture (Rachele-wound Skin Appearance) Assessed Assessed, Assessed Scarring -Moisture (Rachele-wound Skin Appearance) Assessed Assessed, Assessed, Maceration,Dry/ Maceration, Scaly Weeping -Color (Rachele-wound Skin Appearance) Assessed Assessed Assessed, Erythema -Temperature (Rachele-wound Skin No Abnormality No Abnormality No Abnormality Appearance) (Pt Warm) (Pt Warm) (Pt Warm) -Tenderness on Palpation (Rachele-wound No No No Skin Appearance) -Ulcer Cleansing Soap and Water Soap and Water Soap and Water -Foul Odor after Cleansing No No No -Anesthetic Used 5% Lidocaine 5% Lidocaine 5% Lidocaine Gel Gel Gel Lower Limb Edema Present Yes Yes Right Calf (cm) 65 64.7 Right Ankle (cm) 48 32.8 06/11/24 13:50 Wound Center Nurse 1 #1 R post LE- post-op cluster -Combined with other wound -Current Size (cm) - Length 10.5 -Current Size (cm) - Width 1.5 -Current Size (cm) - Depth 0.8 -Total Square Cm 15.75 -Date of Last Picture (Recall this field) -Photo Taken -Epithelialization -Tunneling -Undermining/Tunneling -Circular Undermining -Exudate Amt Large -Exudate Type Serosanguineous -Wound Margin Distinct, Outline Attached -Granulation Amt Large (67-100%) -Granulation Quality [place] -Slough/Fibrin -Necrosis Amt Small (1-33%) -Necrotic Tissue Type Adherent Slough -Texture (Rachele-wound Skin Appearance) Assessed -Moisture (Rachele-wound Skin Appearance) Maceration -Color (Rachele-wound Skin Appearance) Assessed, Erythema -Temperature (Rachele-wound Skin No Abnormality Appearance) (Pt Warm) -Tenderness on Palpation (Rachele-wound No Skin Appearance) -Ulcer Cleansing Soap and Water -Foul Odor after Cleansing No -Anesthetic Used 5% Lidocaine Gel Lower Limb Edema Present Right Calf (cm) 67 Right Ankle (cm) 36.5 WC - Nurse 2 - General Ulcer CM Notes Start: 05/21/24 14:18 Freq: Status: Active Protocol: Activity Type Activity Date Activity User E-sign Co-sign Detail Recorded Client Recorded Date Recorded By Document 05/21/24 14:32 [id number] 05/21/24 14:34 Document 05/28/24 14:40 [id number] 05/28/24 14:42 Document 06/04/24 15:08 [id number] 06/04/24 15:11 Document 06/11/24 14:24 [id number] 06/11/24 14:25 05/21/24 05/28/24 06/04/24 14:32 14:40 15:08 Wound Center Nurse 2 #1 R post LE- post-op cluster -Time 14:32 14:41 15:08 -Correct Patient Yes Yes Yes -Correct Side, Site, Position Yes Yes Yes -Correct Procedure Yes Yes Yes -Procedure Performed Yes Yes Yes -Type of Procedure Debridement Debridement Debridement -Clinical Debridement Subcutaneous Subcutaneous Subcutaneous -Tissue Removed Subcutaneous Subcutaneous Subcutaneous -Post Debridement (cm) - Length 2.0 1.8 1.8 -Post Debridement (cm) - Width 0.6 0.7 0.4 -Post Debridement (cm) - Depth 0.5 0.5 0.9 -Total Square (Post) (cm) 1.20 1.26 0.72 -Area of Debridement (cm) - Length 2.0 1.8 1.8 -Area of Debridement (cm) - Width 0.6 0.7 0.4 -Total Square (Area) (cm) 1.20 1.26 0.72 -Tunneling No No No -Undermining/Tunneling No No No -Circular Undermining No No No -Wound/Ulcer Outcome Not Healed Not Healed Not Healed -Ulcer Cleansing Rinsed/ Rinsed/ Rinsed/ Irrigated with Irrigated with Irrigated with Saline Saline Saline -Foul Odor after Cleansing No No No -Bioengineered Tissue No No No -Bleeding Controlled with Pressure Pressure Pressure -Treatment Response Procedure Procedure Procedure Tolerated Well Tolerated Well Tolerated Well -Offloading No No No -Debridement - Subq, 1st 20sq cm Yes Yes Yes Pain Scale: 0-10 Numeric Is Patient Pain Free? Yes Yes Yes 06/11/24 14:24 Wound Center Nurse 2 #1 R post LE- post-op cluster -Time 14:24 -Correct Patient Yes -Correct Side, Site, Position Yes -Correct Procedure Yes -Procedure Performed Yes -Type of Procedure Debridement -Clinical Debridement Subcutaneous -Tissue Removed Subcutaneous -Post Debridement (cm) - Length 1.4 -Post Debridement (cm) - Width 0.6 -Post Debridement (cm) - Depth 0.4 -Total Square (Post) (cm) 0.84 -Area of Debridement (cm) - Length 1.4 -Area of Debridement (cm) - Width 0.6 -Total Square (Area) (cm) 0.84 -Tunneling No -Undermining/Tunneling No -Circular Undermining No -Wound/Ulcer Outcome Not Healed -Ulcer Cleansing Rinsed/ Irrigated with Saline -Foul Odor after Cleansing No -Bioengineered Tissue No -Bleeding Controlled with Pressure -Treatment Response Procedure Tolerated Well -Offloading No -Debridement - Subq, 1st 20sq cm Yes Pain Scale: 0-10 Numeric Is Patient Pain Free? Yes - Nurse 3 - General Ulcer D/C NN Start: 05/21/24 14:18 Freq: Status: Active Protocol: Activity Type Activity Date Activity User E-sign Co-sign Detail Recorded Client Recorded Date Recorded By Document 05/21/24 15:00 KW [id number] 05/21/24 15:03 KW Document 05/28/24 14:50 BM [id number] 05/28/24 14:51 BM Document 06/04/24 15:28 BMF [id number] 06/04/24 15:29 BMF Document 06/11/24 14:35 RB [id number] 06/11/24 14:37 RB 05/21/24 05/28/24 06/04/24 15:00 14:50 15:28 Wound Care Center Nurse 3 #1 R post LE- post-op cluster -Ulcer Cleansing Rinsed/ Irrigated with Saline -Foul Odor after Cleansing No -Primary Dressing Applied Optilok 6.5x10, Promogran Fibracol Plus Promogran Hannah Matter 4x4,Optilok 6. Hannah Matter 5x10 -Other Dressing kerlix -Primary Dressing Covered/Secured with Dry Gauze & Dry Gauze Roll Gauze, Secured with Tape -Other Covering per msl neurological surgery teacher -Fibracol Plus 4x4 1 -Nugauze, Plain 1/2in 1 -Optilok 6.5x10 1 1 -Promogran Hannah Matter 1 1 Right -Multi-Layered Wrap Application Multi-Layer Multi-Layer Multi-Layer Comp - Right ($ Comp - Right ($ Comp - Right ($ ) ) ) -Tubular Bandage -Size of Tubigrip Used -Size F ($) -Other per msl neurological surgery teacher Treatment Response Procedure Procedure Tolerated Well Tolerated Well Pain Scale: 0-10 Numeric Is Patient Pain Free? Yes Yes Yes WC - Visit Discharge Discharge Condition Stable Stable Stable Ambulatory Status Ambulatory Ambulatory Ambulatory Transportation Private Auto Private Auto Private Auto Medication Reconcilliation completed & No provided to patient/care provider Clinical Summary of Care Provided Yes 06/11/24 14:35 Wound Care Center Nurse 3 #1 R post LE- post-op cluster -Ulcer Cleansing Rinsed/ Irrigated with Saline -Foul Odor after Cleansing -Primary Dressing Applied Fibracol Plus 4x4 -Other Dressing -Primary Dressing Covered/Secured with Dry Gauze & Roll Gauze, Secured with Tape -Other Covering -Fibracol Plus 4x4 1 -Nugauze, Plain 1/2in -Optilok 6.5x10 -Promogran Hannah Matter Right -Multi-Layered Wrap Application -Tubular Bandage Single Layer -Size of Tubigrip Used Size F -Size F ($) 2 -Other Treatment Response Procedure Tolerated Well Pain Scale: 0-10 Numeric Is Patient Pain Free? 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 All findings were discussed with the patient. All questions were answered to the patient's satisfaction. Excisional debridement down to including subcutaneous tissue of the right posterior calf with a number 3 mm dermal curette without incident. Predebridement measurement was 1.3 x 0.5 x 0.3 cm. Postdebridement measurement is 1.4 x 0.6 x 0.4 cm. Right lower extremities were cleaned and patted dry. Triple call was applied to the full-thickness wound followed by dry sterile dressing and double layer Tubigrip. Patient was dispensed extra dressing supplies and will be changing her dressing at home and showering every other day. Patient was understanding of dressing changes as what it meant to keep the wound clean and dry after showering with clean water and antibacterial soap. Educated the patient to continue strict blood sugar control. Patient will follow up the wound care center with Dr. Lord in 2 weeks. (2) Lymphedema, not elsewhere classified: CODE(S): I89.0 - Lymphedema, not elsewhere classified (3) Diabetes mellitus with diabetic polyneuropathy: CODE(S): E11.42 - Type 2 diabetes mellitus with diabetic polyneuropathy QUALIFIERS: Diabetes mellitus type: type 2 Diabetes mellitus senior care insulin use: with intermodal truck driver use Qualified Code(s): E11.42 - Type 2 diabetes mellitus with diabetic polyneuropathy; Z79.4 - director long term care (current) use of insulin
--- NOTE | 2024-06-13 08:56 | WC ---
PHOTO 06/11/24 RIGHT POST LE
== END 2024-06-16 23:59 | disposition home or self-care (01) ==
LOC: WC 13:45
PROVIDERS: PCP Internal Medicine; Referring Provider Internal Medicine; Visit Provider Podiatrist Foot & Ankle Surgery
DX: E11.622 Type 2 diabetes mellitus with other skin ulcer (principal); L97.212 Non-pressure chronic ulcer of right calf with fat layer exposed; E11.42 Type 2 diabetes mellitus with diabetic polyneuropathy; Z79.4 Long term (current) use of insulin; I89.0 Lymphedema, not elsewhere classified; Z79.84 Long term (current) use of oral hypoglycemic drugs; Z79.899 Other long term (current) drug therapy
CPT/HCPCS: 11042; 29581

== ENCOUNTER 2024-07-08 15:34 | Outpatient (RCR) | payer MEDICAID, SELFPAY | END 2024-07-17 23:59 | LOC: NS 15:34 | PROVIDERS: PCP Internal Medicine; Referring Provider Podiatrist Foot & Ankle Surgery; Visit Provider Podiatrist Foot & Ankle Surgery | DX: Z71.3 Dietary counseling and surveillance (principal); E66.01 Morbid (severe) obesity due to excess calories; E11.42 Type 2 diabetes mellitus with diabetic polyneuropathy; Z68.44 Body mass index [BMI] 60.0-69.9, adult; L97.912 Non-pressure chronic ulcer of unspecified part of right lower leg with fat layer exposed; Z79.4 Long term (current) use of insulin | CPT/HCPCS: 97803 ==

== ENCOUNTER 2024-07-16 12:00 | Outpatient (RCR) | payer MEDICAID, SELFPAY ==
[2024-06-17 00:38] VITALS: BP 143/85; PULSE 113; RESP 18; TEMP 36.6; BMI 62.5
[2024-06-25 14:53] VITALS: BP 136/111; PULSE 114; RESP 18; TEMP 36.1; BMI 62.5
--- NOTE | 2024-06-25 15:23 | PN.PCM_ITS ---
History of Present Illness Date of Service: 06/25/24 Chief Complaint: Ulceration right posterior leg History of Wound: Ulceration right posterior leg Subjective Subjective Ms. oRdriguez is a 43-year-old diabetic few presenting to clinic today for follow- up evaluation of right posterior calf wound. Patient states that she notices redness and drainage to her ulceration and more swelling. She does have pain. Her blood sugar has been elevated since being on steroids from her primary doctor secondary to a respiratory infection. Patient denies any trauma to the area. Denies constitutional symptoms. No pedal complaints at this time. Objective Data Objective Data Vital Signs: Vital Signs Temp Pulse Resp BP O2 Del Method 97.0 F L 114 H 18 136/111 H Room Air 06/25/24 14:53 06/25/24 14:53 06/25/24 14:53 06/25/24 14:53 06/25/24 14:53 Oxygen Delivery Method Room Air Weight: 160.223 kg Body Mass Index (BMI) 62.5 Physical Exam Narrative Vascular: DP and PT pulses palpable. CFT is brisk. Nonpitting edema appreciat ed to right lower extremity. Erythema to the right posterior calf. Skin temperature gradient is warm to warm from proximal ankles to distal digit with mild focal increase appreciated to the posterior calf. Neurological: Light touch intact. Patient response to painful stimuli. Dermatological: Full-thickness ulceration measures right calf measuring 1.9 x 0.6 x 0.5 cm. Light serous drainage is appreciated. Erythema to posterior calf without proximal streaking. Excisional debridement down to including subcutaneous tissue of the right posterior calf with a number 3 mm dermal curette without incident. Predebridement measurement was 1.8 x 0.5 x 0.4 cm.. Postdebridement measurement is 1.9 x 0.6 x 0.5 cm. Musculoskeletal: No pain with calf compression. Mild pain to palpation full-thickness ulceration right calf. Debridement Note Debridement Note Debridement Free Text: Excisional debridement down to including subcutaneous tissue of the right posterior calf with a number 3 mm dermal curette without incident. Predebridement measurement was 1.8 x 0.5 x 0.4 cm.. Postdebridement measurement is 1.9 x 0.6 x 0.5 cm. Post-Debridement Measurements and Additional Note: Post-Debridement Measurements/Treatment WC - Nurse 1 - General Ulcer Assessment Start: 06/25/24 14:53 Freq: Status: Active Protocol: WC.SAY Activity Type Activity Date Activity User E-sign Co-sign Detail Recorded Client Recorded Date Recorded By Document 06/25/24 14:53 [id number] 06/25/24 15:10 06/25/24 14:53 - Today's Visit Information Type of service Follow-up Visit (Physician/AMERICAN SIGN LANGUAGE INTERPRETER ) Arrival Mode Ambulatory Patient Identification Verified (Name & Yes ) Height and Weight Body Mass Index (BMI) 62.5 BMI Classification Obese Vital Signs Temperature (97.8 F-99.1 F) 97.0 F L Temperature Source Temporal Pulse Rate (60-100) 114 H Pulse Location Monitor Respiratory Rate (12-18) 18 Respiratory rate source Observation Oxygen Delivery Method Room Air Blood Pressure (90/60-120/80) 136/111 H Blood Pressure Mean (mm Hg) 119 Source Monitor Position Semi-Fowlers Blood Pressure Location Left Arm History Since Last Visit- (Skip if this is Patient's initial visit) Have you changed medications since your No last visit? Any new allergies or adverse reactions No Had a fall/change in ADL's that may No increase risk of falls Signs or symptoms of abuse and/or No neglect since last visit Have you been in the hospital since your No last visit? Has dressing in place as prescribed Yes Has compression in place as prescribed Yes Has offloadiing in place as prescribed N/A Experienced any changes in pain level or No management Left Footwear Regular Shoe Right Footwear Regular Shoe Pain Scale: 0-10 Numeric Is Patient Pain Free? Yes - Nurse 1 - General Ulcer Measurement Start: 06/25/24 14:53 Freq: Status: Active Protocol: Activity Type Activity Date Activity User E-sign Co-sign Detail Recorded Client Recorded Date Recorded By Document 06/25/24 14:53 KW [id number] 06/25/24 15:10 06/25/24 14:53 Wound Center Nurse 1 #1 R post LE- post-op cluster -Current Size (cm) - Length 13 -Current Size (cm) - Width 11 -Current Size (cm) - Depth 0.5 -Total Square Cm 143 -Date of Last Picture (Recall this 06/25/24 field) -Exudate Amt Large -Exudate Type Serosanguineous -Wound Margin Distinct, Outline Attached -Granulation Amt Large (67-100%) -Granulation Quality Red -Necrosis Amt Small (1-33%) -Necrotic Tissue Type Adherent Slough -Texture (Rachele-wound Skin Appearance) Assessed, Excoriation -Moisture (Rachele-wound Skin Appearance) Assessed -Color (Rachele-wound Skin Appearance) Assessed, Erythema -Temperature (Rachele-wound Skin No Abnormality Appearance) (Pt Warm) -Tenderness on Palpation (Rachele-wound No Skin Appearance) -Ulcer Cleansing Soap and Water -Foul Odor after Cleansing No -Anesthetic Used 5% Lidocaine Gel Assessment/Plan Assessment/Plan (1) Non-pressure chronic ulcer of unspecified part of 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 All findings were discussed with the patient. All questions were answered to the patient's satisfaction. Excisional debridement down to including subcutaneous tissue of the right posterior calf with a number 3 mm dermal curette without incident. Predebridement measurement was 1.8 x 0.5 x 0.4 cm.. Postdebridement measurement is 1.9 x 0.6 x 0.5 cm. Right posterior calf was wiped clean and patted dry. Betadine soaked gauze was applied to the ulceration and erythematous area followed by dry sterile dressing superabsorber and a 3M compression wrap to the right lower extremity. Patient will follow-up Sunday versus Sunday for nursing visit. The patient's ulceration was cultured and the patient will be placed on Bactrim DS until cultures return. Educated the patient about smoking cessation and strict blood sugar control. Educated the patient to rest and elevate her right lower extremity to decrease her swelling. At this time we will begin thinking about referring the patient to Dr. Ramírez in plastic surgery for evaluation due to her uncontrolled lymphedema and to see if surgical intervention would be a possibility for this patient and whether or not she is a candidate. Follow-up at the wound care center with Dr. Lord in 1 week. (2) Cellulitis of right leg: CODE(S): L03.115 - Cellulitis of right lower limb (3) Lymphedema, not elsewhere classified: CODE(S): I89.0 - Lymphedema, not elsewhere classified
--- NOTE | 2024-06-26 11:52 | WC ---
PHOTO 06/25/24 RIGHT POSTERIOR LE POST OP
[2024-06-27 09:09] VITALS: BP 155/84; PULSE 113; RESP 18; TEMP 35.9; BMI 62.5
[2024-07-02 09:16] VITALS: BP 143/96; PULSE 113; RESP 18; TEMP 36.1; BMI 62.5
--- NOTE | 2024-07-02 11:03 | PN.PCM_ITS ---
History of Present Illness Date of Service: 07/02/24 Chief Complaint: Ulceration right posterior leg History of Wound: Ulceration right posterior leg Objective Data Objective Data Vital Signs: Vital Signs Temp Pulse Resp BP O2 Del Method 97.0 F L 113 H 18 143/96 H Room Air 07/02/24 09:16 07/02/24 09:16 07/02/24 09:16 07/02/24 09:16 07/02/24 09:16 Oxygen Delivery Method Room Air Weight: 160.223 kg Body Mass Index (BMI) 62.5 Lab / Micro Data Micro: Microbiology 06/25/24 15:20 Ulcer, Decubitus - Leg, Right Gram Stain - Final 06/25/24 15:20 Ulcer, Decubitus - Leg, Right Wound Culture - Final Serratia marcescens Klebsiella aerogenes Klebsiella oxytoca Streptococcus agalactiae (B) Staphylococcus aureus 06/25/24 15:20 Ulcer, Decubitus - Leg, Right Anaerobic Culture - Final No anaerobic bacteria isolated. Physical Exam Narrative Vascular: DP and PT pulses palpable. CFT is brisk. Nonpitting edema appreciated to right lower extremity. Erythema to the right posterior calf. Skin temperature gradient is warm to warm from proximal ankles to distal digit with mild focal increase appreciated to the posterior calf. Neurological: Light touch intact. Patient response to painful stimuli. Dermatological: Full-thickness ulceration measures right calf measuring 1.6 x 0.6 x 0.5 cm. Light serous drainage is appreciated. Erythema to posterior calf without proximal streaking. Excisional debridement down to including subcutaneous tissue of the right posterior calf with a number 3 mm dermal curette without incident. Predebridement measurement was 0.5 x 0.5 x 0.3 cm. Postdebridement measurement is 1.6 x 0.6 x 0.5 cm. Musculoskeletal: No pain with calf compression. Mild pain to palpation full- thickness ulceration right calf. Debridement Note Debridement Note Debridement Free Text: Excisional debridement down to including subcutaneous tissue of the right posterior calf with a number 3 mm dermal curette without incident. Predebridement measurement was 0.5 x 0.5 x 0.3 cm. Postdebridement measurement is 1.6 x 0.6 x 0.5 cm. Post-Debridement Measurements and Additional Note: Post-Debridement Measurements/Treatment WC - Nurse 1 - General Ulcer Assessment Start: 06/25/24 14:53 Freq: Status: Active Protocol: WC.LOWEXT Activity Type Activity Date Activity User E-sign Co-sign Detail Recorded Client Recorded Date Recorded By Document 06/25/24 14:53 KW [id number] 06/25/24 15:10 KW Document 06/27/24 09:09 KW [id number] 06/27/24 09:14 KW Document 07/02/24 09:16 KW [id number] 07/02/24 09:25 KW 06/25/24 06/27/24 07/02/24 14:53 09:09 09:16 - Today's Visit Information Type of service Follow-up Visit Nurse-only Follow-up Visit (Physician/RADIOLOGIST [facility] Visit (Physician/RADIOLOGIST [facility]AST IMAGING ) ) Arrival Mode Ambulatory Ambulatory Ambulatory Patient Identification Verified (Name & Yes Yes Yes ) Height and Weight Body Mass Index (BMI) 62.5 62.5 62.5 BMI Classification Obese Obese Obese Vital Signs Temperature (97.8 F-99.1 F) 97.0 F L 96.7 F L 97.0 F L Temperature Source Temporal Temporal Temporal Pulse Rate (60-100) 114 H 113 H 113 H Pulse Location Monitor Monitor Monitor Respiratory Rate (12-18) 18 18 18 Respiratory rate source Observation Observation Observation Oxygen Delivery Method Room Air Room Air Room Air Blood Pressure (90/60-120/80) 136/111 H 155/84 H 143/96 H Blood Pressure Mean (mm Hg) 119 107 111 Source Monitor Monitor Monitor Position Semi-Fowlers Sitting Semi-Fowlers Blood Pressure Location Left Arm Left Forearm Left Arm History Since Last Visit- (Skip if this is Patient's initial visit) Have you changed medications since your No No No last visit? Any new allergies or adverse reactions No No No Had a fall/change in ADL's that may No No No increase risk of falls Signs or symptoms of abuse and/or No No No neglect since last visit Have you been in the hospital since your No No No last visit? Has dressing in place as prescribed Yes Yes Yes Has compression in place as prescribed Yes Yes Yes Has offloadiing in place as prescribed N/A N/A N/A Experienced any changes in pain level or No No No management Left Footwear Regular Shoe Slipper Slipper Right Footwear Regular Shoe Slipper Slipper Pain Scale: 0-10 Numeric Is Patient Pain Free? Yes Yes Yes - Nurse 1 - General Ulcer Measurement Start: 06/25/24 14:53 Freq: Status: Active Protocol: Activity Type Activity Date Activity User E-sign Co-sign Detail Recorded Client Recorded Date Recorded By Document 06/25/24 14:53 KW [id number] 06/25/24 15:10 KW Document 07/02/24 09:16 KW [id number] 07/02/24 09:25 KW 06/25/24 07/02/24 14:53 09:16 Wound Center Nurse 1 #1 R post LE- post-op cluster -Current Size (cm) - Length 13 2 -Current Size (cm) - Width 11 10 -Current Size (cm) - Depth 0.5 0.9 -Total Square Cm 143 20 -Date of Last Picture (Recall this 06/25/24 field) -Exudate Amt Large Large -Exudate Type Serosanguineous Yellow/Green -Wound Margin Distinct, Distinct, Outline Outline Attached Attached -Granulation Amt Large (67-100%) Large (67-100%) -Granulation Quality Red Red -Necrosis Amt Small (1-33%) -Necrotic Tissue Type Adherent Slough -Texture (Rachele-wound Skin Appearance) Assessed, Assessed, Excoriation Excoriation, Rash -Moisture (Rachele-wound Skin Appearance) Assessed Assessed, Maceration -Color (Rachele-wound Skin Appearance) Assessed, Assessed, Erythema Erythema -Temperature (Rachele-wound Skin No Abnormality No Abnormality Appearance) (Pt Warm) (Pt Warm) -Tenderness on Palpation (Rachele-wound No Yes Skin Appearance) -Ulcer Cleansing Soap and Water Soap and Water -Foul Odor after Cleansing No No -Anesthetic Used 5% Lidocaine 5% Lidocaine Gel Gel - Nurse 2 - General Ulcer CM Notes Start: 06/25/24 14:53 Freq: Status: Active Protocol: Activity Type Activity Date Activity User E-sign Co-sign Detail Recorded Client Recorded Date Recorded By Document 06/25/24 15:23 JF [id number] 06/25/24 15:24 JF Document 07/02/24 09:38 [id number] 07/02/24 09:50 JF 06/25/24 07/02/24 15:23 09:38 Wound Center Nurse 2 #1 R post LE- post-op cluster -Time 15:24 09:39 -Correct Patient Yes Yes -Correct Side, Site, Position Yes Yes -Correct Procedure Yes Yes -Procedure Performed Yes Yes -Type of Procedure Debridement Debridement -Clinical Debridement Subcutaneous Subcutaneous -Tissue Removed Subcutaneous Subcutaneous -Post Debridement (cm) - Length 1.9 1.6 -Post Debridement (cm) - Width 0.6 0.6 -Post Debridement (cm) - Depth 0.5 0.5 -Total Square (Post) (cm) 1.14 0.96 -Area of Debridement (cm) - Length 1.9 1.6 -Area of Debridement (cm) - Width 0.6 0.6 -Total Square (Area) (cm) 1.14 0.96 -Tunneling No No -Undermining/Tunneling No No -Circular Undermining No No -Wound/Ulcer Outcome Not Healed Not Healed -Ulcer Cleansing Rinsed/ Rinsed/ Irrigated with Irrigated with Saline Saline -Foul Odor after Cleansing No No -Bioengineered Tissue No No -Bleeding Controlled with Pressure Pressure -Treatment Response Procedure Procedure Tolerated Well Tolerated Well -Offloading No No -Debridement - Subq, 1st 20sq cm Yes Yes Pain Scale: 0-10 Numeric Is Patient Pain Free? Yes Yes - Nurse 3 - General Ulcer D/C NN Start: 06/25/24 14:53 Freq: Status: Active Protocol: Activity Type Activity Date Activity User E-sign Co-sign Detail Recorded Client Recorded Date Recorded By Document 06/25/24 15:31 [facility] [id number] 06/25/24 15:32 [facility] Document 06/27/24 09:09 [id number] 06/27/24 09:14 KW Document 07/02/24 10:02 [id number] 07/02/24 10:02 06/25/24 06/27/24 07/02/24 15:31 09:09 10:02 Wound Care Center Nurse 3 #1 R post LE- post-op cluster -Ulcer Cleansing Rinsed/ Soap and Water Not Cleansed Irrigated with Saline -Foul Odor after Cleansing No No -Primary Dressing Applied Optilok 8x12 Optilok 8x12 -Other Dressing betadine gauze betadine soaked gauze -Primary Dressing Covered/Secured with Dry Gauze & Dry Gauze & Roll Gauze, Roll Gauze, Secured with Secured with Tape Tape -Other Covering drsg per kw spray stainer -Optilok 8x12 1 1 Left -Lotion applied to leg before No compression wrap -Tubular Bandage Double Layer -Size of Tubigrip Used Size F -Size F ($) 2 Right -Lotion applied to leg before No compression wrap -Multi-Layered Wrap Application Multi-Layer Multi-Layer Comp - Right ($ Comp - Right ($ ) ) -Tubular Bandage Double Layer -Size of Tubigrip Used Size F -Size F ($) 2 Treatment Response Procedure Tolerated Well Vital Signs Temperature (97.8 F-99.1 F) 96.7 F L Temperature Source Temporal Pulse Rate (60-100) 113 H Pulse Location Monitor Respiratory Rate (12-18) 18 Respiratory rate source Observation Oxygen Delivery Method Room Air Blood Pressure (90/60-120/80) 155/84 H Blood Pressure Mean (mm Hg) 107 Source Monitor Position Sitting Blood Pressure Location Left Forearm Pain Scale: 0-10 Numeric Is Patient Pain Free? Yes Yes Yes WC - Visit Discharge Discharge Condition Stable Stable Ambulatory Status Ambulatory Ambulatory Transportation Private Auto Private Auto Assessment/Plan Assessment/Plan (1) Non-pressure chronic ulcer of unspecified part of 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 All findings were discussed with the patient. All questions were answered to the patient's satisfaction. Excisional debridement down to including subcutaneous tissue of the right posterior calf with a number 3 mm dermal curette without incident. Predebridement measurement was 0.5 x 0.5 x 0.3 cm. Postdebridement measurement is 1.6 x 0.6 x 0.5 cm. Right posterior calf was wiped clean and patted dry. Triple-lumen antibiotic was applied to the ulceration of the posterior right leg followed by dry sterile dressing and double layer Tubigrip. Patient will be given an additional prescription for oral Augmentin 875 twice daily for 2 weeks as well as gentamicin 2% ointment that she will have to change daily in her wound. Patient educated on application dressing changes and she was understanding of this. Patient will continue her Bactrim DS as written. The patient's ulceration was cultured and the patient will be placed on Bactrim DS until cultures return. Educated the patient that if she has concerns for worsening infection to right leg she is to present to the emergency room for evaluation and possible IV antibiotics and admission. Follow-up at the wound care center with Dr. Lord in 1 week. (2) Cellulitis of right leg: CODE(S): L03.115 - Cellulitis of right lower limb (3) Lymphedema, not elsewhere classified: CODE(S): I89.0 - Lymphedema, not elsewhere classified
[2024-07-09 11:37] VITALS: BP 147/97; PULSE 112; RESP 18; TEMP 35.9; BMI 62.5
--- NOTE | 2024-07-09 12:10 | PCM.WC.PN ---
History of Present Illness Date of Service: 07/09/24 Chief Complaint: Ulceration right posterior leg History of Wound: Ulceration right posterior leg Subjective Subjective Ms. Rodriguez is a 43-year-old diabetic female presenting to clinic today with chief complaint of right posterior calf ulceration. Patient was seen by her outside provider for an upper respiratory infection. She is on oral steroids and causing her blood sugar to be elevated. She was not seen in the emergency department. She has been compliant with dressing changes but states her right leg is more swollen than before but relates it to her steroid use. She denies trauma. Denies constitutional symptoms. Other pedal complaints at this time. Objective Data Objective Data Vital Signs: Vital Signs Temp Pulse Resp BP O2 Del Method 96.7 F L 112 H 18 147/97 H Room Air 07/09/24 11:37 07/09/24 11:37 07/09/24 11:37 07/09/24 11:37 07/09/24 11:37 Oxygen Delivery Method Room Air Weight: 160.223 kg Body Mass Index (BMI) 62.5 Lab / Micro Data Micro: Microbiology 06/25/24 15:20 Ulcer, Decubitus - Leg, Right Gram Stain - Final 06/25/24 15:20 Ulcer, Decubitus - Leg, Right Wound Culture - Final Serratia marcescens Klebsiella aerogenes Klebsiella oxytoca Streptococcus agalactiae (B) Staphylococcus aureus 06/25/24 15:20 Ulcer, Decubitus - Leg, Right Anaerobic Culture - Final No anaerobic bacteria isolated. Physical Exam Narrative Vascular: DP and PT pulses palpable. CFT is brisk. Nonpitting edema appreciated to right lower extremity. Erythema to the right posterior calf, improving. Skin temperature gradient is warm to warm from proximal ankles to distal digit with mild focal increase appreciated to the posterior calf. Neurological: Light touch intact. Patient response to painful stimuli. Dermatological: Full-thickness ulceration measures right calf measuring 1.8 x 0.6 x 0.8 cm. Light serous drainage is appreciated. Erythema to posterior calf without proximal streaking, improving. Excisional debridement down to including subcutaneous tissue of the right posterior calf with a number 3 mm dermal curette without incident. Predebridement measurement was 1.7 x 0.5 x 0.6 cm. Postdebridement measurement is 1.8 x 0.6 x 0.8 cm. Musculoskeletal: No pain with calf compression. Mild pain to palpation full-thickness ulceration right calf. Debridement Note Debridement Note Debridement Free Text: Excisional debridement down to including subcutaneous tissue of the right posterior calf with a number 3 mm dermal curette without incident. Predebridement measurement was 1.7 x 0.5 x 0.6 cm. Postdebridement measurement is 1.8 x 0.6 x 0.8 cm. Post-Debridement Measurements and Additional Note: Post-Debridement Measurements/Treatment - Nurse 1 - General Ulcer Assessment Start: 06/25/24 14:53 Freq: Status: Active Protocol: [email or web address].[email or web address] Activity Type Activity Date Activity User E-sign Co-sign Detail Recorded Client Recorded Date Recorded By Document 06/25/24 14:53 KW [id number] 06/25/24 15:10 KW Document 06/27/24 09:09 KW [id number] 06/27/24 09:14 KW Document 07/02/24 09:16 KW [id number] 07/02/24 09:25 KW Document 07/09/24 11:37 KW [id number] 07/09/24 11:46 KW 06/25/24 06/27/24 07/02/24 14:53 09:09 09:16 - Today's Visit Information Type of service Follow-up Visit Nurse-only Follow-up Visit (Physician/AGRICULTURAL ENGINEER Visit (Physician/AGRICULTURAL ENGINEER ) ) Arrival Mode Ambulatory Ambulatory Ambulatory Patient Identification Verified (Name & Yes Yes Yes ) Height and Weight Body Mass Index (BMI) 62.5 62.5 62.5 BMI Classification Obese Obese Obese Vital Signs Temperature (97.8 F-99.1 F) 97.0 F L 96.7 F L 97.0 F L Temperature Source Temporal Temporal Temporal Pulse Rate (60-100) 114 H 113 H 113 H Pulse Location Monitor Monitor Monitor Respiratory Rate (12-18) 18 18 18 Respiratory rate source Observation Observation Observation Oxygen Delivery Method Room Air Room Air Room Air Blood Pressure (90/60-120/80) 136/111 H 155/84 H 143/96 H Blood Pressure Mean (mm Hg) 119 107 111 Source Monitor Monitor Monitor Position Semi-Fowlers Sitting Semi-Fowlers Blood Pressure Location Left Arm Left Forearm Left Arm History Since Last Visit- (Skip if this is Patient's initial visit) Have you changed medications since your No No No last visit? Any new allergies or adverse reactions No No No Had a fall/change in ADL's that may No No No increase risk of falls Signs or symptoms of abuse and/or No No No neglect since last visit Have you been in the hospital since your No No No last visit? Has dressing in place as prescribed Yes Yes Yes Has compression in place as prescribed Yes Yes Yes Has offloadiing in place as prescribed N/A N/A N/A Experienced any changes in pain level or No No No management Left Footwear Regular Shoe Slipper Slipper Right Footwear Regular Shoe Slipper Slipper Pain Scale: 0-10 Numeric Is Patient Pain Free? Yes Yes Yes 07/09/24 11:37 WC - Today's Visit Information Type of service Follow-up Visit (Physician/AGRICULTURAL ENGINEER ) Arrival Mode Ambulatory Patient Identification Verified (Name & Yes ) Height and Weight Body Mass Index (BMI) 62.5 BMI Classification Obese Vital Signs Temperature (97.8 F-99.1 F) 96.7 F L Temperature Source Temporal Pulse Rate (60-100) 112 H Pulse Location Monitor Respiratory Rate (12-18) 18 Respiratory rate source Observation Oxygen Delivery Method Room Air Blood Pressure (90/60-120/80) 147/97 H Blood Pressure Mean (mm Hg) 113 Source Monitor Position Sitting Blood Pressure Location Left Arm History Since Last Visit- (Skip if this is Patient's initial visit) Have you changed medications since your No last visit? Any new allergies or adverse reactions No Had a fall/change in ADL's that may No increase risk of falls Signs or symptoms of abuse and/or No neglect since last visit Have you been in the hospital since your No last visit? Has dressing in place as prescribed Yes Has compression in place as prescribed Yes Has offloadiing in place as prescribed N/A Experienced any changes in pain level or No management Left Footwear Regular Shoe Right Footwear Regular Shoe Pain Scale: 0-10 Numeric Is Patient Pain Free? Yes - Nurse 1 - General Ulcer Measurement Start: 06/25/24 14:53 Freq: Status: Active Protocol: Activity Type Activity Date Activity User E-sign Co-sign Detail Recorded Client Recorded Date Recorded By Document 06/25/24 14:53 KW [id number] 06/25/24 15:10 KW Document 07/02/24 09:16 KW [id number] 07/02/24 09:25 KW Document 07/09/24 11:37 KW [id number] 07/09/24 11:46 KW 06/25/24 07/02/24 07/09/24 14:53 09:16 11:37 Wound Center Nurse 1 #1 R post LE- post-op cluster -Current Size (cm) - Length 13 2 1.5 -Current Size (cm) - Width 11 10 0.3 -Current Size (cm) - Depth 0.5 0.9 0.5 -Total Square Cm 143 20 0.45 -Date of Last Picture (Recall this 06/25/24 07/09/24 field) -Exudate Amt Large Large Medium -Exudate Type Serosanguineous Yellow/Green Serosanguineous -Wound Margin Distinct, Distinct, Distinct, Outline Outline Outline Attached Attached Attached -Granulation Amt Large (67-100%) Large (67-100%) Large (67-100%) -Granulation Quality Red Red [place],Red -Necrosis Amt Small (1-33%) -Necrotic Tissue Type Adherent Slough -Texture (Rachele-wound Skin Appearance) Assessed, Assessed, Assessed, Excoriation Excoriation, Excoriation, Rash Rash -Moisture (Rachele-wound Skin Appearance) Assessed Assessed, Assessed Maceration -Color (Rachele-wound Skin Appearance) Assessed, Assessed, Assessed, Erythema Erythema Erythema -Temperature (Rachele-wound Skin No Abnormality No Abnormality No Abnormality Appearance) (Pt Warm) (Pt Warm) (Pt Warm) -Tenderness on Palpation (Rachele-wound No Yes No Skin Appearance) -Ulcer Cleansing Soap and Water Soap and Water Soap and Water -Foul Odor after Cleansing No No No -Anesthetic Used 5% Lidocaine 5% Lidocaine 5% Lidocaine Gel Gel Gel Right Calf (cm) 67.4 Right Ankle (cm) 33 Left Calf (cm) 62.9 Left Ankle (cm) 33.6 WC - Nurse 2 - General Ulcer CM Notes Start: 06/25/24 14:53 Freq: Status: Active Protocol: Activity Type Activity Date Activity User E-sign Co-sign Detail Recorded Client Recorded Date Recorded By Document 06/25/24 15:23 JF [id number] 06/25/24 15:24 JF Document 07/02/24 09:38 JF [id number] 07/02/24 09:50 JF Document 07/09/24 11:53 [facility] [id number] 07/09/24 11:58 [facility] 06/25/24 07/02/24 07/09/24 15:23 09:38 11:53 Wound Center Nurse 2 #1 R post LE- post-op cluster -Time 15:24 09:39 11:54 -Correct Patient Yes Yes Yes -Correct Side, Site, Position Yes Yes Yes -Correct Procedure Yes Yes Yes -Procedure Performed Yes Yes Yes -Type of Procedure Debridement Debridement Debridement -Clinical Debridement Subcutaneous Subcutaneous Subcutaneous -Tissue Removed Subcutaneous Subcutaneous Subcutaneous -Post Debridement (cm) - Length 1.9 1.6 1.8 -Post Debridement (cm) - Width 0.6 0.6 0.6 -Post Debridement (cm) - Depth 0.5 0.5 0.8 -Total Square (Post) (cm) 1.14 0.96 1.08 -Area of Debridement (cm) - Length 1.9 1.6 1.8 -Area of Debridement (cm) - Width 0.6 0.6 0.6 -Total Square (Area) (cm) 1.14 0.96 1.08 -Tunneling No No No -Undermining/Tunneling No No No -Circular Undermining No No No -Wound/Ulcer Outcome Not Healed Not Healed Not Healed -Ulcer Cleansing Rinsed/ Rinsed/ Rinsed/ Irrigated with Irrigated with Irrigated with Saline Saline Saline -Foul Odor after Cleansing No No No -Bioengineered Tissue No No No -Bleeding Controlled with Pressure Pressure Pressure -Treatment Response Procedure Procedure Procedure Tolerated Well Tolerated Well Tolerated Well -Offloading No No -Debridement - Subq, 1st 20sq cm Yes Yes Yes Pain Scale: 0-10 Numeric Is Patient Pain Free? Yes Yes Yes WC - Nurse 3 - General Ulcer D/C NN Start: 06/25/24 14:53 Freq: Status: Active Protocol: Activity Type Activity Date Activity User E-sign Co-sign Detail Recorded Client Recorded Date Recorded By Document 06/25/24 15:31 [facility] [id number] 06/25/24 15:32 [facility] Document 06/27/24 09:09 KW [id number] 06/27/24 09:14 KW Document 07/02/24 10:02 [id number] 07/02/24 10:02 Document 07/09/24 12:09 [facility] [id number] 07/09/24 12:10 BMF 06/25/24 06/27/24 07/02/24 15:31 09:09 10:02 Wound Care Center Nurse 3 #1 R post LE- post-op cluster -Ulcer Cleansing Rinsed/ Soap and Water Not Cleansed Irrigated with Saline -Foul Odor after Cleansing No No -Primary Dressing Applied Optilok 8x12 Optilok 8x12 -Other Dressing betadine gauze betadine soaked gauze -Primary Dressing Covered/Secured with Dry Gauze & Dry Gauze & Roll Gauze, Roll Gauze, Secured with Secured with Tape Tape -Other Covering drsg per kw meat pumper -Optilok 6.5x10 -Optilok 8x12 1 1 ble -Tubular Bandage -Size of Tubigrip Used -Size F ($) Left -Lotion applied to leg before No compression wrap -Tubular Bandage Double Layer -Size of Tubigrip Used Size F -Size F ($) 2 Right -Lotion applied to leg before No compression wrap -Multi-Layered Wrap Application Multi-Layer Multi-Layer Comp - Right ($ Comp - Right ($ ) ) -Tubular Bandage Double Layer -Size of Tubigrip Used Size F -Size F ($) 2 Treatment Response Procedure Tolerated Well Vital Signs Temperature (97.8 F-99.1 F) 96.7 F L Temperature Source Temporal Pulse Rate (60-100) 113 H Pulse Location Monitor Respiratory Rate (12-18) 18 Respiratory rate source Observation Oxygen Delivery Method Room Air Blood Pressure (90/60-120/80) 155/84 H Blood Pressure Mean (mm Hg) 107 Source Monitor Position Sitting Blood Pressure Location Left Forearm Pain Scale: 0-10 Numeric Is Patient Pain Free? Yes Yes Yes WC - Visit Discharge Discharge Condition Stable Stable Ambulatory Status Ambulatory Ambulatory Transportation Private Auto Private Auto 07/09/24 12:09 Wound Care Center Nurse 3 #1 R post LE- post-op cluster -Ulcer Cleansing Rinsed/ Irrigated with Saline -Foul Odor after Cleansing No -Primary Dressing Applied Optilok 6.5x10 -Other Dressing atb oint -Primary Dressing Covered/Secured with Dry Gauze & Roll Gauze, Secured with Tape -Other Covering -Optilok 6.5x10 1 -Optilok 8x12 ble -Tubular Bandage Double Layer -Size of Tubigrip Used Size F -Size F ($) 2 Left -Lotion applied to leg before compression wrap -Tubular Bandage -Size of Tubigrip Used -Size F ($) Right -Lotion applied to leg before compression wrap -Multi-Layered Wrap Application -Tubular Bandage -Size of Tubigrip Used -Size F ($) Treatment Response Procedure Tolerated Well Vital Signs Temperature (97.8 F-99.1 F) Temperature Source Pulse Rate (60-100) Pulse Location Respiratory Rate (12-18) Respiratory rate source Oxygen Delivery Method Blood Pressure (90/60-120/80) Blood Pressure Mean (mm Hg) Source Position Blood Pressure Location Pain Scale: 0-10 Numeric Is Patient Pain Free? 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 All findings were discussed with the patient. All questions were answered to the patient's satisfaction. Excisional debridement down to including subcutaneous tissue of the right posterior calf with a number 3 mm dermal curette without incident. Predebridement measurement was 1.7 x 0.5 x 0.6 cm. Postdebridement measurement is 1.8 x 0.6 x 0.8 cm. Right posterior calf was wiped clean and patted dry. Triple-antibiotic was applied to the ulceration of the posterior right leg followed by dry sterile dressing and double layer Tubigrip. Patient will continue her oral antibiotics as well as the topical gentamicin ointment to the full-thickness wound, with dressing changes above. Recommend follow-up with Dr. Ramírez in plastic surgery for evaluation and consultation regarding the patient's lymphedema. Follow-up at the wound care center with Dr. Lord in 1 week. (2) Cellulitis of right leg: CODE(S): L03.115 - Cellulitis of right lower limb (3) Lymphedema, not elsewhere classified: CODE(S): I89.0 - Lymphedema, not elsewhere classified PLAN: Recommend follow-up with Dr. Ramírez regarding possible consultation and treatment for the patient's noncontrolled lymphedema
--- NOTE | 2024-07-17 11:48 | WC ---
Pt called today stating that she had been experiencing fevers throughout the week, her ulcered leg is red, warm and her toes are turning purple. She states she had just finished ATB and has been following dressing orders per Dr. Lord. PT was advised to go to the ER to be evaluated for possible infection. She states she understands and will get a ride in.
== END 2024-07-17 23:59 | disposition home or self-care (01) ==
LOC: WC 12:00
PROVIDERS: PCP Internal Medicine; Referring Provider Internal Medicine; Visit Provider Podiatrist Foot & Ankle Surgery
DX: L97.212 Non-pressure chronic ulcer of right calf with fat layer exposed (principal); R73.9 Hyperglycemia, unspecified; L03.115 Cellulitis of right lower limb; I89.0 Lymphedema, not elsewhere classified; Z79.84 Long term (current) use of oral hypoglycemic drugs; Z79.899 Other long term (current) drug therapy
CPT/HCPCS: 11042; 29581; 87070; 87075; 87077; 87186; 87205

== ENCOUNTER 2024-07-17 13:52 | Emergency (ER) | payer MEDICAID, SELFPAY ==
[2024-07-17 13:53] VITALS: BP 153/83; PULSE 113; RESP 15; TEMP 37.1; O2SAT 100
[2024-07-17 13:56] VITALS: BMI 70.2
[2024-07-17] MEDS: Cephalexin 250 MG Capsule 500 MG PO (15:04)
[2024-07-17 15:05] VITALS: BP 134/78; PULSE 64; RESP 18; TEMP 37.2; O2SAT 99
--- NOTE | 2024-07-17 15:08 | ED.VIS.LOWEX ---
HPI History of Present Illness Chief Complaint: Wound Check Informant: patient Narrative Narrative: History of lymphedema diabetes presents 2 days ago had a fever 103 resolved since then. Took Tylenol at that time. Yesterday redness to right foot. History of lymphedema with wound to the posterior calf a year ago. She is followed by wound care Dr. Lancaster. This is been healing. No pain in the calf. No fever since 2 days ago. Allergies to amoxicillin and penicillin. Denies any wounds to the foot or drainage. Reports mild cough nonproductive. Prior similar symptoms: Yes PFSH PFSH Medical History Open wound History of steroid therapy Diabetes Easy bruising Restless legs Migraine headache Wears glasses Cracked tooth Difficulty chewing GERD (gastroesophageal reflux disease) Electronic cigarette use CPAP (continuous positive airway pressure) dependence Shortness of breath on exertion History of stress test Anxiety Sleep apnea COPD (chronic obstructive pulmonary disease) Asthma Obesity Diabetes Bipolar 1 disorder Home Medications ?Medication ?Instructions ?Recorded ?Last Taken ?Type loratadine 10 mg tablet (Allergy 10 mg PO DAILY Allergies 07/07/13 11/07/19 History Relief (loratadine)) lorazepam 1 mg tablet 1 mg PO BID PRN PRN Anxiety 12/11/13 06/26/19 History montelukast 10 mg tablet 10 mg PO QHS 08/10/16 11/07/19 History sumatriptan succinate 25 mg tablet 25 mg PO .X1 PRN PRN Migraine 08/10/16 06/30/19 History (Imitrex) Symptoms aripiprazole 2 mg tablet 5 mg PO QHS 07/01/19 06/20/23 History citalopram 40 mg tablet 40 mg PO DAILY 07/01/19 09/28/23 History lamotrigine 200 mg tablet 200 mg PO BID 07/01/19 09/28/23 History metformin 500 mg tablet 1,000 mg PO BID dm 07/01/19 11/07/19 History naproxen 500 mg tablet 500 mg PO BID PRN PRN Pain Or Fever 07/01/19 Unknown History topiramate 100 mg tablet 100 mg PO BID 07/01/19 11/07/19 History glimepiride 2 mg tablet 4 mg PO DAILY 11/08/19 11/07/19 History lansoprazole 30 mg capsule,delayed 30 mg PO DAILY #30 CAPSULES 12/30/20 09/28/23 Rx release albuterol sulfate 90 mcg/actuation 2 puff inhalation Q4H PRN PRN 09/07/22 09/28/23 Rx aerosol inhaler (Ventolin HFA) Wheezing ##1 ferrous sulfate 325 mg (65 mg 325 mg PO TID #90 tabs 09/07/22 Unknown Rx iron) tablet (FeroSul) furosemide 20 mg tablet 20 mg PO BID 09/07/22 Unknown History cyclobenzaprine 10 mg tablet 10 mg PO TID PRN Muscle Spasm #20 12/09/22 Unknown Rx TABLETS pramipexole 1.5 mg tablet (Mirapex) 1.5 mg PO QHS 09/25/23 Unknown History ascorbic acid (vitamin C) 1,000 mg 1 g PO DAILY 90 days #90 tabs 09/28/23 Unknown Rx tablet (Vitamin C) calcium 500 mg (as 1 tab PO DAILY 90 days #90 tabs 09/28/23 Unknown Rx carbonate)-vitamin D3 15 mcg (600 unit) tablet (Os-Wilfredo 500 + D3) cyclobenzaprine 10 mg tablet 10 mg PO TID 7 days #21 tabs 09/28/23 Unknown Rx docusate sodium 100 mg capsule 100 mg PO DAILY 10 days #10 caps 09/28/23 Unknown Rx (Colace) acetaminophen 500 mg tablet 1,000 mg (2 x 500 mg) PO Q6H PRN 03/09/24 Unknown Rx (Tylenol Extra Strength) pain 7 days #56 tabs benztropine 1 mg tablet 1 mg PO BID PRN PRN legs 03/09/24 Unknown History quetiapine 25 mg tablet (Seroquel) 25 mg PO DAILY 04/09/24 04/09/24 History sulfamethoxazole 800 1 tab PO BID 2 weeks #28 tabs 06/25/24 Unknown Rx mg-trimethoprim 160 mg tablet (Bactrim DS) amoxicillin 875 mg-potassium 1 tab PO BID 2 weeks #28 tabs 07/02/24 Unknown Rx clavulanate 125 mg tablet gentamicin 0.1 % topical ointment 1 applic topical TID #30 grams 07/02/24 Unknown Rx cephalexin 500 mg capsule 500 mg PO Q6 #20 CAPSULES 07/17/24 Unknown Rx Allergy/AdvReac Type Severity Reaction Status Date / Time amoxicillin (From Augmentin) Allergy Intermediate Hives Verified 07/17/24 13:53 clavulanic acid (From Allergy Intermediate Hives Verified 07/17/24 13:53 Augmentin) melatonin Allergy Hives Verified 07/17/24 13:53 Penicillins Allergy Hives Verified 07/17/24 13:53 Surgical History History of cardiac catheterization History of umbilical hernia repair (~2017) History of herniorrhaphy Social History household members: none Smoking Status: Current every day smoker tobacco type: cigarettes and e-cigarettes substance use type: does not use ROS ROS ED Constitutional Constitutional ED: Reports fever(s); Denies chills or sweats Eyes Eyes: Denies change in vision ENT ENT ED: Denies dysphagia or sore throat Cardiovascular Cardiovascular: Denies chest pain, leg edema, palpitations or racing heartbeat Respiratory/Chest Respiratory/Chest: Reports cough; Denies dyspnea or dyspnea on exertion Gastrointestinal Gastrointestinal: Denies abdominal pain, diarrhea, nausea or vomiting Genitourinary Genitourinary ED: Denies dysuria, hematuria or urinary frequency Musculoskeletal Musculoskeletal: Denies back pain, extremity pain or neck pain Integumentary Reports rash; Denies wounds Neurologic Neurologic: Denies headache(s), paresthesias or weakness EXAM Physical Exam Const Vital Signs: 07/17/24 13:53 07/17/24 15:05 Temperature 98.8 F 98.9 F Temperature Source Oral Pulse Rate 113 H 64 Respiratory Rate 15 18 Blood Pressure 153/83 H 134/78 H Blood Pressure Mean 106 96 Pulse Ox 100 99 Oxygen Delivery Method Room Air Positive well nourished and well developed General Appearance ED: well developed and NAD HEENT Reports moist mucous membranes normocephalic and atraumatic Eyes EOMs intact bilaterally and conjunctivae normal General Eye ED: Yes normal appearance of both eyes Neck no lymphadenopathy and supple General: Negative for tenderness Chest Wall Chest: Negative for tenderness Resp normal respiratory effort and normal air movement Effort and Inspection: symmetric chest movement; Negative for respiratory distress Cardio regular rate, regular rhythm and no murmurs Peripheral Pulses: pulses 2+ throughout GI normal to inspection, nondistended, normoactive bowel sounds and non-tender Palpation: Negative for guarding or rebound tenderness present Back/Spine no CVA tenderness and no thoracic nor lumbar tenderness Extremity normal to inspection Extremity Narrative: Lymphedema bilateral lower extremities. No calf pain. Dressings of posterior right calf Taken down there is no ulcerations no active drainage. Right dorsal foot there is erythema across the dorsal medial aspect of foot with no toe involvement. This does not go past the ankle. No streaking. No fluctuance or indurations. General Extremety ED: Negative for tenderness Neuro oriented x3 and no sensory deficits noted Sensorium / Orientation: awake and alert Skin no rashes or lesions noted and no wounds MDM MDM MDM Narrative Medical decision making narrative: Interventions / MDM: Differential diagnosis: Right foot cellulitis, viral syndrome Diagnosis considered but do not suspect: N/A My EKG interpretation: N/A Imaging independently reviewed and interpreted by myself: N/A External documents reviewed: N/A Test considered but not ordered:N/A ED course: Afebrile in the ED. Right foot cellulitis. 2 days ago had a fever and cough that is resolving. She declines nasal testing. Discussed likely viral syndrome causing her fever. She developed right foot cellulitis small area of the foot. There is no wounds distally. No streaking. With her diabetes discussed starting her on Keflex. She will monitor symptoms. Erythema was outlined. Return precautions. All questions were answered. Re-evaluation: stable Disposition discussed with patient/family/significant other: Patient significant other Case discussed with consulting clinician: N/A This note was generated with [employer] dictation software. It may contain incorrect words, spelling, and punctuation that were not noted in checking the note before signing. Discharge Plan Triage Chief Complaint: Wound Check ED Provider: Nikhil Loera Dx/Rx/DC Orders Clinical Impression: Cellulitis of foot, right, History of diabetes mellitus, Viral syndrome Instructions: ED Cellulitis Prescriptions: New cephalexin 500 mg capsule 500 mg PO Q6 Qty: 20 0RF No Action loratadine [Allergy Relief (loratadine)] 10 MG tablet 10 mg PO DAILY lorazepam 1 MG tablet 1 mg PO BID PRN PRN (Reason: Anxiety) sumatriptan succinate [Imitrex] 25 MG tablet 25 mg PO .X1 PRN PRN (Reason: Migraine Symptoms) montelukast 10 MG tablet 10 mg PO QHS metformin 500 MG tablet 1,000 mg PO BID Patient Comments: TAKE 2 TABLETS TWICE DAILY WITH meals lamotrigine 200 mg tablet 200 mg PO BID Patient Comments: 1 tablet twice a day citalopram 40 tablet 40 mg PO DAILY topiramate 100 MG tablet 100 mg PO BID Patient Comments: TAKE 1 TABLET TWICE DAILY naproxen 500 MG tablet 500 mg PO BID PRN PRN (Reason: Pain Or Fever) Patient Comments: TAKE 1 TABLET TWICE DAILY WITH FOOD NEEDED FOR PAIN /inflammation aripiprazole 2 mg tablet 5 mg PO QHS Patient Comments: Take 1 tablet by mouth once a day glimepiride 2 MG tablet 4 mg PO DAILY lansoprazole 30 MG capsule 30 mg PO DAILY Qty: 30 0RF furosemide 20 mg tablet 20 mg PO BID ferrous sulfate [FeroSul] 325 mg (65 mg iron) tablet 325 mg PO TID Qty: 90 0RF Rx Instructions: May start once a day for a week, twice a day for a week, and then start 3 times daily. albuterol sulfate [Ventolin HFA] 90 mcg/actuation HFA aerosol inhaler 2 puff inhalation Q4H PRN MDD Dispense with spacer if availa PRN (Reason: Wheezing) Qty: 1 0RF cyclobenzaprine [cyclobenzaprine] 10 mg tablet 10 mg PO TID PRN (Reason: Muscle Spasm) Qty: 20 0RF pramipexole [Mirapex] 1.5 mg tablet 1.5 mg PO QHS cyclobenzaprine 10 mg tablet 10 mg PO TID 7 Days Qty: 21 0RF docusate sodium [Colace] 100 mg capsule 100 mg PO DAILY 10 Days Qty: 10 0RF ascorbic acid (vitamin C) [Vitamin C] 1,000 mg tablet 1 g PO DAILY 90 Days Qty: 90 0RF calcium carbonate-vitamin D3 [Os-Wilfredo 500 + D3] 500 mg-15 mcg (600 unit) tablet 1 tab PO DAILY 90 Days Qty: 90 0RF sulfamethoxazole-trimethoprim [Bactrim DS] 800-160 mg tablet 1 tab PO BID 14 Days Qty: 28 0RF amoxicillin-pot clavulanate 875-125 mg tablet 1 tab PO BID 14 Days Qty: 28 0RF gentamicin 0.1 % ointment 1 applic topical TID Qty: 30 1RF Rx Instructions: Applied to full-thickness wound to the posterior right leg daily and cover with dry sterile dressing. benztropine 1 mg tablet 1 mg PO BID PRN PRN (Reason: legs) acetaminophen [Tylenol Extra Strength] 500 mg tablet 1,000 mg PO Q6H PRN (Reason: pain) 7 Days Qty: 56 0RF quetiapine [Seroquel] 25 mg tablet 25 mg PO DAILY Rx Instructions: 3 tablets daily Primary Care Provider: Verona Villarreal Referrals: Sebas Lord DPM [Med Staff - Active Staff] - 3-5 Days Verona Villarreal MD [Primary Care Provider] - Activity Restrictions/Additional Instructions: Isolated cellulitis dorsal right foot. Take Keflex as prescribed. Monitor symptoms. Worsening symptoms, return to ED for reevaluation otherwise follow-up with Dr. Lord. Print Language: Turkish Disposition Disposition: Home, Self Care Discharge Date/Time: 07/17/24 15:07
== END 2024-07-17 15:07 | disposition home or self-care (01) ==
PROVIDERS: Emergency Provider Emergency Medicine; PCP Internal Medicine; Visit Provider Emergency Medicine
DX: L03.115 Cellulitis of right lower limb (principal); J44.9 Chronic obstructive pulmonary disease, unspecified; E11.9 Type 2 diabetes mellitus without complications; B34.9 Viral infection, unspecified; I89.0 Lymphedema, not elsewhere classified; K21.9 Gastro-esophageal reflux disease without esophagitis; F17.210 Nicotine dependence, cigarettes, uncomplicated; F17.290 Nicotine dependence, other tobacco product, uncomplicated; Z79.84 Long term (current) use of oral hypoglycemic drugs; Z79.899 Other long term (current) drug therapy; Z88.0 Allergy status to penicillin; Z88.1 Allergy status to other antibiotic agents
CPT/HCPCS: 99282

== ENCOUNTER 2024-08-12 13:39 | Outpatient (RCR) | payer MEDICAID, SELFPAY | END 2024-08-16 23:59 | LOC: NS 13:39 | PROVIDERS: PCP Internal Medicine; Referring Provider Podiatrist Foot & Ankle Surgery; Visit Provider Podiatrist Foot & Ankle Surgery | DX: Z71.3 Dietary counseling and surveillance (principal); E66.01 Morbid (severe) obesity due to excess calories; E11.42 Type 2 diabetes mellitus with diabetic polyneuropathy; Z68.44 Body mass index [BMI] 60.0-69.9, adult; L97.912 Non-pressure chronic ulcer of unspecified part of right lower leg with fat layer exposed; Z79.4 Long term (current) use of insulin | CPT/HCPCS: 97803 ==

== ENCOUNTER 2024-08-13 12:00 | Outpatient (RCR) | payer MEDICAID, SELFPAY ==
[2024-07-18 00:20] VITALS: BP 143/85; PULSE 113; RESP 18; TEMP 36.6; BMI 62.5
[2024-07-21 13:12] VITALS: BP 157/90; PULSE 117; RESP 18; TEMP 36.4; BMI 62.5
--- NOTE | 2024-07-23 13:19 | WC ---
PHOTO 07/21/24 RIGHT POSTERIOR LE
[2024-07-28 14:40] VITALS: BP 165/87; PULSE 106; RESP 14; TEMP 35.8; BMI 62.5
--- NOTE | 2024-07-29 06:20 | PCM.WC.PN ---
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 Lord out of concern for calciphylaxis. Patient reports that she has been dealing with a wound for around the past year. She had lower extremity vascular studies ordered back in June which did not demonstrate any issues with her vasculature. She is never had any history of kidney problems. Objective Data Objective Data Vital Signs: Vital Signs Temp Pulse Resp BP O2 Del Method 96.5 F L 106 H 14 165/87 H Room Air 07/28/24 14:40 07/28/24 14:40 07/28/24 14:40 07/28/24 14:40 07/21/24 13:12 Oxygen Delivery Method Room Air Weight: 353 lb 3.708 oz Body Mass Index (BMI) 62.5 Charges/Coding Visit Charges Office Visits / Consults: 70841 OV L4 New 45min Physical Exam Narrative Wound examination Right lower extremity: Patient has a small posterior calf wound within the folds of some woody, edematous tissue with chronic lymphedematous changes. Wound appears to be subcutaneous at this time, with no obvious calcium deposits on today's exam. Const alert and oriented x3 Cardio regular rate Extremity Extremity Narrative: Patient has 2+ dorsalis pedis pulses bilaterally She has the classic distribution of fat around the knees and ankles consistent with lipedema which is painful to palpation She also has swelling in the feet and swelling over the second metatarsal that is more consistent with a lymphedema component Debridement Note Debridement Note Post-Debridement Measurements and Additional Note: Post-Debridement Measurements/Treatment WC - Nurse 1 - General Ulcer Assessment Start: 07/21/24 13:09 Freq: Status: Active Protocol: WATSON Activity Type Activity Date Activity User E-sign Co-sign Detail Recorded Client Recorded Date Recorded By Document 07/21/24 13:12 KW [id number] 07/21/24 13:20 KW Document 07/28/24 14:40 ML [id number] 07/28/24 14:45 ML 07/21/24 07/28/24 13:12 14:40 WC - Today's Visit Information Type of service Follow-up Visit Follow-up Visit (Physician/INSPECTOR TECHNICIAN (Physician/INSPECTOR TECHNICIAN ) ) Arrival Mode Ambulatory Ambulatory Transfer Assistance None Patient Identification Verified (Name & Yes Yes ) Patient Requires Transmission-Based No Precautions Finger Stick Blood Sugar(mg/dl) (if 177 indicated): Blood Sugar Stated by Patient Height and Weight Body Mass Index (BMI) 62.5 62.5 BMI Classification Obese Obese Vital Signs Temperature (97.8 F-99.1 F) 97.5 F L 96.5 F L Temperature Source Temporal Temporal Pulse Rate (60-100) 117 H 106 H Pulse Location Monitor Monitor Respiratory Rate (12-18) 18 14 Respiratory rate source Observation Observation Oxygen Delivery Method Room Air Blood Pressure (90/60-120/80) 157/90 H 165/87 H Blood Pressure Mean (mm Hg) 112 113 Source Monitor Monitor Position Sitting Sitting Blood Pressure Location Left Forearm Right Arm History Since Last Visit- (Skip if this is Patient's initial visit) Have you changed medications since your No No last visit? Any new allergies or adverse reactions No No Had a fall/change in ADL's that may No No increase risk of falls Signs or symptoms of abuse and/or No No neglect since last visit Have you been in the hospital since your No No last visit? Has dressing in place as prescribed Yes No Has compression in place as prescribed Yes N/A Has offloadiing in place as prescribed N/A N/A Experienced any changes in pain level or No No management Left Footwear Regular Shoe Right Footwear Regular Shoe Pain Scale: 0-10 Numeric Is Patient Pain Free? Yes Yes - Nurse 1 - General Ulcer Measurement Start: 07/21/24 13:09 Freq: Status: Active Protocol: Activity Type Activity Date Activity User E-sign Co-sign Detail Recorded Client Recorded Date Recorded By Document 07/21/24 13:12 KW [id number] 07/21/24 13:20 KW Document 07/28/24 14:40 ML [id number] 07/28/24 14:45 ML 07/21/24 07/28/24 13:12 14:40 Wound Center Nurse 1 #1 R post LE- post-op cluster -Current Size (cm) - Length 1.8 0.3 -Current Size (cm) - Width 0.2 0.3 -Current Size (cm) - Depth 0.7 0.5 -Total Square Cm 0.36 0.09 -Date of Last Picture (Recall this 07/21/24 field) -Exudate Amt Large Medium -Exudate Type Serosanguineous Serosanguineous -Wound Margin Thickened Distinct, Outline Attached -Granulation Amt Medium (34-66%) Medium (34-66%) -Granulation Quality [place] -Slough/Fibrin No -Necrosis Amt Medium (34-66%) Medium (34-66%) -Necrotic Tissue Type Adherent Slough -Texture (Rachele-wound Skin Appearance) Assessed, Assessed Localized Edema -Moisture (Rachele-wound Skin Appearance) Maceration Assessed -Color (Rachlee-wound Skin Appearance) Assessed, Not Assessed Erythema -Temperature (Rachele-wound Skin No Abnormality No Abnormality Appearance) (Pt Warm) (Pt Warm) -Tenderness on Palpation (Rachele-wound No No Skin Appearance) -Ulcer Cleansing Rinsed/ Rinsed/ Irrigated with Irrigated with Saline Saline -Foul Odor after Cleansing No No -Anesthetic Used 5% Lidocaine 5% Lidocaine Gel Gel Right Calf (cm) 69 Right Ankle (cm) 34 32.5 Point of measurement (cm from the medial 66.5 instep) WC - Nurse 2 - General Ulcer CM Notes Start: 07/21/24 13:09 Freq: Status: Active Protocol: Activity Type Activity Date Activity User E-sign Co-sign Detail Recorded Client Recorded Date Recorded By Document 07/28/24 15:29 RUBA [id number] 07/28/24 15:45 07/28/24 15:29 Wound Center Nurse 2 #1 R post LE- post-op cluster -Correct Patient No -Correct Side, Site, Position No -Correct Procedure No -Procedure Performed No -Wound/Ulcer Outcome Not Healed Pain Scale: 0-10 Numeric Is Patient Pain Free? Yes WC - Nurse 3 - General Ulcer D/C NN Start: 07/21/24 13:09 Freq: Status: Active Protocol: Activity Type Activity Date Activity User E-sign Co-sign Detail Recorded Client Recorded Date Recorded By Document 07/21/24 15:15 DL [id number] 07/21/24 15:16 DL Document 07/28/24 15:55 DL [id number] 07/28/24 15:56 DL 07/21/24 07/28/24 15:15 15:55 Wound Care Center Nurse 3 #1 R post LE- post-op cluster -Ulcer Cleansing Rinsed/ Rinsed/ Irrigated with Irrigated with Saline Saline -Foul Odor after Cleansing No -Other Dressing Gentamycin oint -Primary Dressing Covered/Secured with Dry Gauze, Dry Gauze & Secured with Roll Gauze, Tape Secured with Tape -Wound Comment(s) Nurse visit today ble -Tubular Bandage Double Layer -Size of Tubigrip Used Size F -Size F ($) 2 Right -Tubular Bandage Double Layer -Size of Tubigrip Used Size F -Size F ($) 2 Treatment Response Procedure Procedure Tolerated Well Tolerated Well Pain Scale: 0-10 Numeric Is Patient Pain Free? Yes Yes WC - Visit Discharge Discharge Condition Stable Stable Ambulatory Status Ambulatory Ambulatory Transportation Private Auto Private Auto Assessment/Plan Assessment/Plan (1) Non-pressure chronic ulcer of unspecified part of right lower leg with fat layer exposed: CODE(S): L97.912 - Non-pressure chronic ulcer of unspecified part of right lower leg with fat layer exposed PLAN: I discussed with the patient lipedema and how it can eventually lead to lymphedema when it becomes severe enough. I think she has episodic swelling of the lower extremities that is leading to skin breakdown and wounds. I talked her about multimodal treatment for her obesity which may help, and talked her about BMI goals for debulking liposuction of lower extremity (would need significantly lower BMI for safety). I recommended contacting a bariatric surgeon, as well as continue to follow with nutrition team for weight loss. As for rule out calciphylaxis, we could consider getting an x-ray, but given normal kidney function I think this is unlikely. Agree with biopsy from 11 July 2023 which did not demonstrate any malignancy, but could biopsy again in the future to rule out squamous cell given that the wound is becoming chronic. I am ordering lower extremity vascular studies to be repeated as he has not been done for a year and could better elucidate some of the problems of lower extremity. I will discuss her case with Dr. Lord.
[2024-07-30 11:55] VITALS: BP 127/99; PULSE 117; RESP 20; TEMP 36.2; BMI 62.5
--- NOTE | 2024-07-30 12:43 | PCM.WC.PN ---
History of Present Illness Date of Service: 07/30/24 Chief Complaint: Ulceration right posterior leg History of Wound: Ulceration right posterior leg Progress of Wound: Chronic ulceration to right leg that she will shows evidence of drainage due to leg swelling. Wound is chronic in nature due to possible noncompliance. Would recommend bariatric referral for weight loss program and or surgery. Subjective Subjective Ms. Rodriguez is a 43-year-old diabetic female presenting to wound care center today to follow-up on evaluation of posterior right leg. Patient has been compliant with dressing changes. She did see plastic surgery who recommended bariatric surgery I believe her swelling to the leg is more lipedema versus lymphedema. They are recommending bariatric surgery which I agree. Patient notices pain to the right leg. Blood sugar well-controlled. She admits that she is not smoking or vaping. She does do some exercise at home. Denies trauma. Denies constitutional symptoms. No other pedal complaints at this time. Objective Data Objective Data Vital Signs: Vital Signs Temp Pulse Resp BP O2 Del Method 97.1 F L 117 H 20 H 127/99 H Room Air 07/30/24 11:55 07/30/24 11:55 07/30/24 11:55 07/30/24 11:55 07/30/24 11:55 Oxygen Delivery Method Room Air Weight: 160.223 kg Body Mass Index (BMI) 62.5 Physical Exam Narrative Vascular: DP and PT pulses palpable. CFT is brisk. Nonpitting edema appreciated to right lower extremity. Erythema to the right posterior calf, improving. Skin temperature gradient is warm to warm from proximal ankles to distal digit with mild focal increase appreciated to the posterior calf. Neurological: Light touch intact. Patient response to painful stimuli. Dermatological: Full-thickness ulceration measures right calf measuring 1.5 x 0.4 x 0.8 cm. Light serous drainage is appreciated. Erythema to posterior calf without proximal streaking, improving. Excisional debridement down to including subcutaneous tissue of the right posterior calf with a number 3 mm dermal curette without incident. Predebridement measurement was 1.4 x 0.3 x 0.5 cm. Postdebridement measurement is 1.5 x 0.4 x 0.8 cm. Musculoskeletal: No pain with calf compression. Mild pain to palpation full-thickness ulceration right calf. Debridement Note Debridement Note Debridement Free Text: Excisional debridement down to including subcutaneous tissue of the right posterior calf with a number 3 mm dermal curette without incident. Predebridement measurement was 1.4 x 0.3 x 0.5 cm. Postdebridement measurement is 1.5 x 0.4 x 0.8 cm. Post-Debridement Measurements and Additional Note: Post-Debridement Measurements/Treatment WC - Nurse 1 - General Ulcer Assessment Start: 07/21/24 13:09 Freq: Status: Active Protocol: WATSON Activity Type Activity Date Activity User E-sign Co-sign Detail Recorded Client Recorded Date Recorded By Document 07/21/24 13:12 KW [id number] 07/21/24 13:20 KW Document 07/28/24 14:40 ML [id number] 07/28/24 14:45 ML Document 07/30/24 11:55 GM [id number] 07/30/24 11:57 GM 07/21/24 07/28/24 07/30/24 13:12 14:40 11:55 WC - Today's Visit Information Type of service Follow-up Visit Follow-up Visit Follow-up Visit (Physician/LENS GENERATING MACHINE TENDER (Physician/LENS GENERATING MACHINE TENDER (Physician/LENS GENERATING MACHINE TENDER ) ) ) Arrival Mode Ambulatory Ambulatory Ambulatory Transfer Assistance None None Patient Identification Verified (Name & Yes Yes Yes ) Patient Requires Transmission-Based No Precautions Finger Stick Blood Sugar(mg/dl) (if 177 indicated): Blood Sugar Stated by Patient Height and Weight Body Mass Index (BMI) 62.5 62.5 62.5 BMI Classification Obese Obese Obese Vital Signs Temperature (97.8 F-99.1 F) 97.5 F L 96.5 F L 97.1 F L Temperature Source Temporal Temporal Temporal Pulse Rate (60-100) 117 H 106 H 117 H Pulse Location Monitor Monitor Monitor Respiratory Rate (12-18) 18 14 20 H Respiratory rate source Observation Observation Observation Oxygen Delivery Method Room Air Room Air Blood Pressure (90/60-120/80) 157/90 H 165/87 H 127/99 H Blood Pressure Mean (mm Hg) 112 113 108 Source Monitor Monitor Monitor Position Sitting Sitting Sitting Blood Pressure Location Left Forearm Right Arm Left Forearm History Since Last Visit- (Skip if this is Patient's initial visit) Have you changed medications since your No No No last visit? Any new allergies or adverse reactions No No No Had a fall/change in ADL's that may No No No increase risk of falls Signs or symptoms of abuse and/or No No No neglect since last visit Have you been in the hospital since your No No No last visit? Has dressing in place as prescribed Yes No Yes Has compression in place as prescribed Yes N/A Yes Has offloadiing in place as prescribed N/A N/A N/A Experienced any changes in pain level or No No No management Left Footwear Regular Shoe Slipper Right Footwear Regular Shoe Slipper Pain Scale: 0-10 Numeric Is Patient Pain Free? Yes Yes Yes WC - Nurse 1 - General Ulcer Measurement Start: 07/21/24 13:09 Freq: Status: Active Protocol: Activity Type Activity Date Activity User E-sign Co-sign Detail Recorded Client Recorded Date Recorded By Document 07/21/24 13:12 KW [id number] 07/21/24 13:20 KW Document 07/28/24 14:40 ML [id number] 07/28/24 14:45 ML Document 07/30/24 11:55 GM [id number] 07/30/24 11:57 GM 07/21/24 07/28/24 07/30/24 13:12 14:40 11:55 Wound Center Nurse 1 #1 R post LE- post-op cluster -Current Size (cm) - Length 1.8 0.3 0.5 -Current Size (cm) - Width 0.2 0.3 0.7 -Current Size (cm) - Depth 0.7 0.5 0.1 -Total Square Cm 0.36 0.09 0.35 -Date of Last Picture (Recall this 07/21/24 field) -Photo Taken No -Epithelialization Small 1-33% -Tunneling No -Undermining/Tunneling No -Circular Undermining No -Exudate Amt Large Medium Large -Exudate Type Serosanguineous Serosanguineous Serous -Wound Margin Thickened Distinct, Distinct, Outline Outline Attached Attached -Granulation Amt Medium (34-66%) Medium (34-66%) -Granulation Quality [place] -Slough/Fibrin No -Necrosis Amt Medium (34-66%) Medium (34-66%) -Necrotic Tissue Type Adherent Slough -Texture (Rachele-wound Skin Appearance) Assessed, Assessed Assessed Localized Edema -Moisture (Rachele-wound Skin Appearance) Maceration Assessed Assessed -Color (Rachele-wound Skin Appearance) Assessed, Not Assessed Assessed, Erythema Erythema -Temperature (Rachele-wound Skin No Abnormality No Abnormality No Abnormality Appearance) (Pt Warm) (Pt Warm) (Pt Warm) -Tenderness on Palpation (Rachele-wound No No Skin Appearance) -Ulcer Cleansing Rinsed/ Rinsed/ Soap and Water Irrigated with Irrigated with Saline Saline -Foul Odor after Cleansing No No No -Anesthetic Used 5% Lidocaine 5% Lidocaine 5% Lidocaine Gel Gel Gel Right Calf (cm) 69 67.5 Right Ankle (cm) 34 32.5 32.5 Point of measurement (cm from the medial 66.5 instep) WC - Nurse 2 - General Ulcer CM Notes Start: 07/21/24 13:09 Freq: Status: Active Protocol: Activity Type Activity Date Activity User E-sign Co-sign Detail Recorded Client Recorded Date Recorded By Document 07/28/24 15:29 [id number] 07/28/24 15:45 Document 07/30/24 12:04 [id number] 07/30/24 12:07 07/28/24 07/30/24 15:29 12:04 Wound Center Nurse 2 #1 R post LE- post-op cluster -Time 12:05 -Correct Patient No Yes -Correct Side, Site, Position No Yes -Correct Procedure No Yes -Procedure Performed No Yes -Type of Procedure Debridement -Clinical Debridement Subcutaneous -Tissue Removed Subcutaneous -Post Debridement (cm) - Length 1.5 -Post Debridement (cm) - Width 0.4 -Post Debridement (cm) - Depth 0.8 -Total Square (Post) (cm) 0.60 -Area of Debridement (cm) - Length 1.5 -Area of Debridement (cm) - Width 0.4 -Total Square (Area) (cm) 0.60 -Tunneling No -Undermining/Tunneling No -Circular Undermining No -Wound/Ulcer Outcome Not Healed Not Healed -Ulcer Cleansing Rinsed/ Irrigated with Saline -Foul Odor after Cleansing No -Bioengineered Tissue No -Bleeding Controlled with Pressure -Treatment Response Procedure Not Tolerated Well -Offloading No -Debridement - Subq, 1st 20sq cm Yes Pain Scale: 0-10 Numeric Is Patient Pain Free? Yes Yes PANCHITO - Nurse 3 - General Ulcer D/C NN Start: 07/21/24 13:09 Freq: Status: Active Protocol: Activity Type Activity Date Activity User E-sign Co-sign Detail Recorded Client Recorded Date Recorded By Document 07/21/24 15:15 DL [id number] 07/21/24 15:16 DL Document 07/28/24 15:55 DL [id number] 07/28/24 15:56 DL Document 07/30/24 12:37 CP [id number] 07/30/24 12:39 CP 07/21/24 07/28/24 07/30/24 15:15 15:55 12:37 Wound Care Center Nurse 3 #1 R post LE- post-op cluster -Ulcer Cleansing Rinsed/ Rinsed/ Rinsed/ Irrigated with Irrigated with Irrigated with Saline Saline Saline -Foul Odor after Cleansing No -Other Dressing Gentamycin oint dakins gauze -Primary Dressing Covered/Secured with Dry Gauze, Dry Gauze & Dry Gauze & Secured with Roll Gauze, Roll Gauze, Tape Secured with Secured with Tape Tape -Optilok 6.5x10 1 -Wound Comment(s) Nurse visit today ble -Tubular Bandage Double Layer -Size of Tubigrip Used Size F -Size F ($) 2 Right -Lotion applied to leg before No compression wrap -Multi-Layered Wrap Application Multi-Layer Comp - Right ($ ) -Tubular Bandage Double Layer -Size of Tubigrip Used Size F -Size F ($) 2 Treatment Response Procedure Procedure Tolerated Well Tolerated Well Pain Scale: 0-10 Numeric Is Patient Pain Free? Yes Yes No WC - Visit Discharge Discharge Condition Stable Stable Stable Ambulatory Status Ambulatory Ambulatory Ambulatory Transportation Private Auto Private Auto Private Auto Clinical Summary of Care Provided Yes Assessment/Plan Assessment/Plan (1) Non-pressure chronic ulcer of unspecified part of 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 All findings were discussed with the patient. All questions were answered to the patient's satisfaction. Excisional debridement down to including subcutaneous tissue of the right posterior calf with a number 3 mm dermal curette without incident. Predebridement measurement was 1.4 x 0.3 x 0.5 cm. Postdebridement measurement is 1.5 x 0.4 x 0.8 cm. Right lower extremities were cleaned and patted dry. Dakin solution soaked gauze followed by superabsorber followed by 3M multilayer compression bandage. Educated the patient to continue strict blood sugar control which she states she is trying. Review of Dr. Ramírez's wound care note from 07/29/2024, I am in agreement and will refer the patient to bariatric surgery for consultation and evaluation. Referral will be sent to bariatric department at [facility]. Vascular studies are pending. Patient will leave her dressing clean dry and intact and elevated as discussed. She will follow-up for a nursing appointment if she notices strikethrough to the compression bandage. Follow-up at the wound care center with Dr. Lord in 1 week.
--- NOTE | 2024-07-30 12:57 | ART_ITS ---
Reason For Study: LE Wound Procedure A bilateral lower extremity continuous wave Doppler with analog waveform analysis and ankle brachial indexes. Left Segmental Pressures Left brachial= 163mmHg. Left posterior tibial artery = >254mmHg. Left dorsalis pedis artery = 182mmHg. Left digit = 111 mmHg. The left posterior tibial artery waveforms are biphasic. The left dorsalis pedis waveforms are triphasic. Right Segmental Pressures Right brachial= 150mmHg. Right dorsalis pedis artery = >254mmHg. Right digit = 101 mmHg. The right dorsalis pedis waveforms are biphasic. Unable to acquire RT [employer]DU[employer] CONSULTANT Due to wounds/bandages. Indices The right ankle brachial index by the dorsalis pedis is N/C. The right digital-brachial index is 0.62. The left ankle brachial index by the posterior tibial artery is N/C. The left ankle brachial index by the dorsalis pedis is 1.12. The left digital-brachial index is 0.68. VL/Lower Ext Art Exam w/o Exercis Interpretation Summary Biphasic Doppler waveforms are noted at ankle level on the right. Biphasic and triphasic Doppler waveforms are noted at ankle level on the left. Pulse-volume recordings appear satisfactory at ankle and digital level bilaterally. The resting right ankle-brachial index could not be determined due to the non-compressibility of the vasculature at ankle level on the right. The res ting left ankle- brachial index is normal. Digital-brachial indices are mildly diminished bilate rally. There is evidence of arterial calcification at ankle level on the right. Arteri al flow appears normal at ankle level on the left. There is evidence of mild arterial occlusive disease at digital level bilaterally. Ordering Physician: Verona Villarreal Referring Physician: Rome Ramírez MD Performed By: Jaskaran Lpoes RVT
--- NOTE | 2024-07-30 12:57 | VDLE_ITS ---
Reason For Study: LE Wound RIGHT LEFT CFV is compressible, spontaneous, phasic, CFV is compressible, spontaneous, phasic, competent and demonstrates normal competent, and demonstrates normal augmentation. augmentation. FV is compressible, spontaneous, phasic, FV is compressible, spontaneous, phasic, competent and demonstrates normal competent and demonstrates normal augmentation. augmentation. POP V is compressible, spontaneous, phasic, POP V is compressible, spontaneous, phasic, competent and demonstrates normal competent and demonstrates normal augmentation. augmentation. T/P Trunk is compressible. T/P Trunk is compressible. PTV is compressible. PTV is compressible. RT PerV is compressible. LT PerV is compressible. Unable to visualize calf vessels at prox and Unable to visualize calf vessels at prox and mid due to body habitus. mid due to body habitus. Unable to visualize PTV and Liana V due to SFJ is competent and measures 0.84 cm. wounds/wrap. GSV proximal thigh measures 0.70 x 0.72 cm. SFJ is competent and measures 0.86 cm. GSV at knee measures 0.50 cm. GSV proximal thigh measures 0.75 x 0.80 cm. GSV is competent throughout. GSV at knee measures 0.54 x 0.52 cm. SSV at junction is competent and measures GSV above knee is competent. 0.45 cm. Unable to visualize GSV below knee due to wounds/wraps. SSV at junction is competent and measures 0.57 cm. Procedure This is a venous duplex using B-mode, color flow and spectral Doppler. Exam performed in department. The study was technically difficult. VL/Venous Duplex US - Tim Extrem Interpretation Summary Deep veins of the lower extremities are bilaterally patent and compressible seg mentally. There is no evidence of deep vein thrombosis on either side. Valvular competence appears in tact within the proximal deep venous systems bilaterally. The great saphenous veins appear bila terally patent and compressible segmentally. Sapheno-femoral junctions are bilaterally competent . The right great saphenous vein appears competent above the knee. The right great saphenous vein was not visualized below the knee due to the presence of wound bandages. The left great saphenous vein appears segmentally competent. Small saphenous veins are patent and competent bilateral ly. Deep veins of the calf could not be visualized on either side due to the patient's body habitus. Ordering Physician: Rome Ramírez Referring Physician: Zora Liriano Performed By: Jaskaran Lopes RVT
[2024-08-06 11:33] VITALS: BP 166/87; PULSE 115; RESP 18; TEMP 36.3; BMI 62.5
--- NOTE | 2024-08-06 13:38 | PN.PCM_ITS ---
History of Present Illness Date of Service: 08/06/24 Chief Complaint: Ulceration right posterior leg History of Wound: Ulceration right posterior leg Progress of Wound: Chronic ulceration to right leg that she will shows evidence of drainage due to leg swelling. Wound is chronic in nature due to possible noncompliance. Would recommend bariatric referral for weight loss program and or surgery. Subjective Subjective Ms. Rodriguez is a 43-year-old diabetic female presenting to wound care center today for follow-up evaluation of full-thickness wound and drainage to the posterior aspect of right lower extremity. Patient states that her most recent and last A1c was 10.3%. Patient states that her blood sugar is well-controlled even though her A1c says otherwise. Patient has been compliant with dressing changes. She admits to more drainage to the right leg. She will be following up with [facility] doctors in December 2024 for evaluation and consult Tatian regarding her obesity. She denies trauma. Denies constitutional symptoms. No other pedal complaints at this time. Objective Data Objective Data Vital Signs: Vital Signs Temp Pulse Resp BP O2 Del Method 97.3 F L 115 H 18 166/87 H Room Air 08/06/24 11:33 08/06/24 11:33 08/06/24 11:33 08/06/24 11:33 07/30/24 11:55 Oxygen Delivery Method Room Air Weight: 160.223 kg Body Mass Index (BMI) 62.5 Physical Exam Narrative Vascular: DP and PT pulses palpable. CFT is brisk. Nonpitting edema appreciated to right lower extremity. Erythema to the right posterior calf. Skin temperature gradient is warm to warm from proximal ankles to distal digit with mild focal increase appreciated to the posterior calf. Neurological: Light touch intact. Patient response to painful stimuli. Dermatological: Multiple fissuring appreciated to the posterior right calf secondary to swelling. Full-thickness ulceration measures right calf measuring 1.5 x 0.7 x 0.4 cm. Light serous drainage is appreciated. Erythema to posterior calf without proximal streaking. Evidence of multiple areas of skin breakdown secondary to drainage to the right posterior calf. Excisional debridement down to including subcutaneous tissue of the right posterior calf with a number 3 mm dermal curette without incident. Predebridement measurement was 1.4 x 0.6 x 0.3 cm. Postdebridement measurement is 1.5 x 0.7 x 0.4 cm. Musculoskeletal: No pain with calf compression. Mild pain to palpation full- thickness ulceration right calf. Debridement Note Debridement Note Debridement Free Text: Excisional debridement down to including subcutaneous tissue of the right posterior calf with a number 3 mm dermal curette without incident. Predebridement measurement was 1.4 x 0.6 x 0.3 cm. Postdebridement measurement is 1.5 x 0.7 x 0.4 cm. Post-Debridement Measurements and Additional Note: Post-Debridement Measurements/Treatment - Nurse 1 - General Ulcer Assessment Start: 07/21/24 13:09 Freq: Status: Active Protocol: WATSON Activity Type Activity Date Activity User E-sign Co-sign Detail Recorded Client Recorded Date Recorded By Document 07/21/24 13:12 KW [id number] 07/21/24 13:20 KW Document 07/28/24 14:40 ML [id number] 07/28/24 14:45 ML Document 07/30/24 11:55 GM [id number] 07/30/24 11:57 GM Document 08/06/24 11:33 DL [id number] 08/06/24 11:42 DL 07/21/24 07/28/24 07/30/24 13:12 14:40 11:55 - Today's Visit Information Type of service Follow-up Visit Follow-up Visit Follow-up Visit (Physician/DIRECTOR FUNDS DEVELOPMENT (Physician/DIRECTOR FUNDS DEVELOPMENT (Physician/DIRECTOR FUNDS DEVELOPMENT ) ) ) Arrival Mode Ambulatory Ambulatory Ambulatory Transfer Assistance None None Patient Identification Verified (Name & Yes Yes Yes ) Patient Requires Transmission-Based No Precautions Finger Stick Blood Sugar(mg/dl) (if 177 indicated): Blood Sugar Stated by Patient Height and Weight Body Mass Index (BMI) 62.5 62.5 62.5 BMI Classification Obese Obese Obese Vital Signs Temperature (97.8 F-99.1 F) 97.5 F L 96.5 F L 97.1 F L Temperature Source Temporal Temporal Temporal Pulse Rate (60-100) 117 H 106 H 117 H Pulse Location Monitor Monitor Monitor Respiratory Rate (12-18) 18 14 20 H Respiratory rate source Observation Observation Observation Oxygen Delivery Method Room Air Room Air Blood Pressure (90/60-120/80) 157/90 H 165/87 H 127/99 H Blood Pressure Mean (mm Hg) 112 113 108 Source Monitor Monitor Monitor Position Sitting Sitting Sitting Blood Pressure Location Left Forearm Right Arm Left Forearm History Since Last Visit- (Skip if this is Patient's initial visit) Have you changed medications since your No No No last visit? Any new allergies or adverse reactions No No No Had a fall/change in ADL's that may No No No increase risk of falls Signs or symptoms of abuse and/or No No No neglect since last visit Have you been in the hospital since your No No No last visit? Has dressing in place as prescribed Yes No Yes Has compression in place as prescribed Yes N/A Yes Has offloadiing in place as prescribed N/A N/A N/A Experienced any changes in pain level or No No No management Left Footwear Regular Shoe Slipper Right Footwear Regular Shoe Slipper Pain Scale: 0-10 Numeric Is Patient Pain Free? Yes Yes Yes 08/06/24 11:33 WC - Today's Visit Information Type of service Follow-up Visit (Physician/DIRECTOR FUNDS DEVELOPMENT ) Arrival Mode Ambulatory Transfer Assistance None Patient Identification Verified (Name & Yes ) Patient Requires Transmission-Based No Precautions Finger Stick Blood Sugar(mg/dl) (if indicated): Blood Sugar Height and Weight Body Mass Index (BMI) 62.5 BMI Classification Obese Vital Signs Temperature (97.8 F-99.1 F) 97.3 F L Temperature Source Temporal Pulse Rate (60-100) 115 H Pulse Location Monitor Respiratory Rate (12-18) 18 Respiratory rate source Observation Oxygen Delivery Method Blood Pressure (90/60-120/80) 166/87 H Blood Pressure Mean (mm Hg) 113 Source Monitor Position Blood Pressure Location History Since Last Visit- (Skip if this is Patient's initial visit) Have you changed medications since your No last visit? Any new allergies or adverse reactions No Had a fall/change in ADL's that may No increase risk of falls Signs or symptoms of abuse and/or No neglect since last visit Have you been in the hospital since your No last visit? Has dressing in place as prescribed Yes Has compression in place as prescribed Yes Has offloadiing in place as prescribed Yes Experienced any changes in pain level or No management Left Footwear Regular Shoe Right Footwear Regular Shoe Pain Scale: 0-10 Numeric Is Patient Pain Free? Yes - Nurse 1 - General Ulcer Measurement Start: 07/21/24 13:09 Freq: Status: Active Protocol: Activity Type Activity Date Activity User E-sign Co-sign Detail Recorded Client Recorded Date Recorded By Document 07/21/24 13:12 KW [id number] 07/21/24 13:20 KW Document 07/28/24 14:40 ML [id number] 07/28/24 14:45 ML Document 07/30/24 11:55 GM [id number] 07/30/24 11:57 GM Document 08/06/24 11:33 DL [id number] 08/06/24 11:42 DL Edit Result 08/06/24 11:33 DL (1) [id number] 08/06/24 11:43 DL (1) Right Calf (cm) 63.8 => 68.8 07/21/24 07/28/24 07/30/24 13:12 14:40 11:55 Wound Center Nurse 1 #1 R post LE- post-op cluster -Current Size (cm) - Length 1.8 0.3 0.5 -Current Size (cm) - Width 0.2 0.3 0.7 -Current Size (cm) - Depth 0.7 0.5 0.1 -Total Square Cm 0.36 0.09 0.35 -Date of Last Picture (Recall this 07/21/24 field) -Photo Taken No -Epithelialization Small 1-33% -Tunneling No -Undermining/Tunneling No -Circular Undermining No -Exudate Amt Large Medium Large -Exudate Type Serosanguineous Serosanguineous Serous -Wound Margin Thickened Distinct, Distinct, Outline Outline Attached Attached -Granulation Amt Medium (34-66%) Medium (34-66%) -Granulation Quality Hadley -Slough/Fibrin No -Necrosis Amt Medium (34-66%) Medium (34-66%) -Necrotic Tissue Type Adherent Slough -Structure Exposed -Texture (Rachele-wound Skin Appearance) Assessed, Assessed Assessed Localized Edema -Moisture (Rachele-wound Skin Appearance) Maceration Assessed Assessed -Color (Rachele-wound Skin Appearance) Assessed, Not Assessed Assessed, Erythema Erythema -Temperature (Rachele-wound Skin No Abnormality No Abnormality No Abnormality Appearance) (Pt Warm) (Pt Warm) (Pt Warm) -Tenderness on Palpation (Rachele-wound No No Skin Appearance) -Ulcer Cleansing Rinsed/ Rinsed/ Soap and Water Irrigated with Irrigated with Saline Saline -Foul Odor after Cleansing No No No -Anesthetic Used 5% Lidocaine 5% Lidocaine 5% Lidocaine Gel Gel Gel Right Calf (cm) 69 67.5 Right Ankle (cm) 34 32.5 32.5 Point of measurement (cm from the medial 66.5 instep) 08/06/24 11:33 Wound Center Nurse 1 #1 R post LE- post-op cluster -Current Size (cm) - Length 2.5 -Current Size (cm) - Width 0.3 -Current Size (cm) - Depth 0.8 -Total Square Cm 0.75 -Date of Last Picture (Recall this field) -Photo Taken Yes -Epithelialization -Tunneling -Undermining/Tunneling -Circular Undermining -Exudate Amt Small -Exudate Type Serosanguineous -Wound Margin Distinct, Outline Attached -Granulation Amt Small (1-33%) -Granulation Quality Hadley -Slough/Fibrin -Necrosis Amt Small (1-33%) -Necrotic Tissue Type Adherent Slough -Structure Exposed N/A -Texture (Rachele-wound Skin Appearance) Localized Edema ,Scarring,Rash -Moisture (Rachele-wound Skin Appearance) -Color (Rachele-wound Skin Appearance) No Abnormality -Temperature (Rachele-wound Skin No Abnormality Appearance) (Pt Warm) -Tenderness on Palpation (Rachele-wound Skin Appearance) -Ulcer Cleansing Soap and Water -Foul Odor after Cleansing No -Anesthetic Used 5% Lidocaine Gel Right Calf (cm) 68.8 Right Ankle (cm) 33.6 Point of measurement (cm from the medial instep) WC - Nurse 2 - General Ulcer CM Notes Start: 07/21/24 13:09 Freq: Status: Active Protocol: Activity Type Activity Date Activity User E-sign Co-sign Detail Recorded Client Recorded Date Recorded By Document 07/28/24 15:29 [id number] 07/28/24 15:45 Document 07/30/24 12:04 [id number] [id number] 07/30/24 12:07 Document 08/06/24 12:30 [id number] 08/06/24 12:32 07/28/24 07/30/24 08/06/24 15:29 12:04 12:30 Wound Center Nurse 2 #1 R post LE- post-op cluster -Time 12:05 12:32 -Correct Patient No Yes Yes -Correct Side, Site, Position No Yes Yes -Correct Procedure No Yes Yes -Procedure Performed No Yes Yes -Type of Procedure Debridement Debridement -Clinical Debridement Subcutaneous Subcutaneous -Tissue Removed Subcutaneous Subcutaneous -Post Debridement (cm) - Length 1.5 1.5 -Post Debridement (cm) - Width 0.4 0.7 -Post Debridement (cm) - Depth 0.8 0.4 -Total Square (Post) (cm) 0.60 1.05 -Area of Debridement (cm) - Length 1.5 1.5 -Area of Debridement (cm) - Width 0.4 0.7 -Total Square (Area) (cm) 0.60 1.05 -Tunneling No No -Undermining/Tunneling No No -Circular Undermining No No -Wound/Ulcer Outcome Not Healed Not Healed Not Healed -Ulcer Cleansing Rinsed/ Rinsed/ Irrigated with Irrigated with Saline Saline -Foul Odor after Cleansing No No -Bioengineered Tissue No No -Bleeding Controlled with Pressure Pressure -Treatment Response Procedure Not Procedure Tolerated Well Tolerated Well -Offloading No No -Debridement - Subq, 1st 20sq cm Yes Yes Pain Scale: 0-10 Numeric Is Patient Pain Free? Yes Yes Yes - Nurse 3 - General Ulcer D/C NN Start: 07/21/24 13:09 Freq: Status: Active Protocol: Activity Type Activity Date Activity User E-sign Co-sign Detail Recorded Client Recorded Date Recorded By Document 07/21/24 15:15 DL [id number] 07/21/24 15:16 DL Document 07/28/24 15:55 DL [id number] 07/28/24 15:56 DL Document 07/30/24 12:37 CP [id number] 07/30/24 12:39 CP Document 08/06/24 12:58 DL [id number] 08/06/24 12:59 DL 07/21/24 07/28/24 07/30/24 15:15 15:55 12:37 Wound Care Center Nurse 3 #1 R post LE- post-op cluster -Ulcer Cleansing Rinsed/ Rinsed/ Rinsed/ Irrigated with Irrigated with Irrigated with Saline Saline Saline -Foul Odor after Cleansing No -Primary Dressing Applied -Other Dressing Gentamycin oint dakins gauze -Primary Dressing Covered/Secured with Dry Gauze, Dry Gauze & Dry Gauze & Secured with Roll Gauze, Roll Gauze, Tape Secured with Secured with Tape Tape -Optilok 6.5x10 1 -Wound Comment(s) Nurse visit today ble -Tubular Bandage Double Layer -Size of Tubigrip Used Size F -Size F ($) 2 Right -Lotion applied to leg before No compression wrap -Multi-Layered Wrap Application Multi-Layer Comp - Right ($ ) -Tubular Bandage Double Layer -Size of Tubigrip Used Size F -Size F ($) 2 Treatment Response Procedure Procedure Tolerated Well Tolerated Well Pain Scale: 0-10 Numeric Is Patient Pain Free? Yes Yes No WC - Visit Discharge Discharge Condition Stable Stable Stable Ambulatory Status Ambulatory Ambulatory Ambulatory Transportation [facility] Clinical Summary of Care Provided Yes 08/06/24 12:58 Wound Care Center Nurse 3 #1 R post LE- post-op cluster -Ulcer Cleansing Rinsed/ Irrigated with Saline -Foul Odor after Cleansing No -Primary Dressing Applied Optilok 6.5x10 -Other Dressing bacitracin -Primary Dressing Covered/Secured with Dry Gauze & Roll Gauze -Optilok 6.5x10 1 -Wound Comment(s) ble -Tubular Bandage -Size of Tubigrip Used -Size F ($) Right -Lotion applied to leg before compression wrap -Multi-Layered Wrap Application Multi-Layer Comp - Right ($ ) -Tubular Bandage -Size of Tubigrip Used -Size F ($) Treatment Response Procedure Tolerated Well Pain Scale: 0-10 Numeric Is Patient Pain Free? Yes WC - Visit Discharge Discharge Condition Stable Ambulatory Status Ambulatory Transportation [employer] Clinical Summary of Care Provided Assessment/Plan Assessment/Plan (1) Non-pressure chronic ulcer of unspecified part of 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 All findings were discussed with the patient. All questions were answered to the patient's satisfaction. Excisional debridement down to including subcutaneous tissue of the right posterior calf with a number 3 mm dermal curette without incident. Predebridement measurement was 1.4 x 0.6 x 0.3 cm. Postdebridement measurement is 1.5 x 0.7 x 0.4 cm. Triple antibiotic was applied to the right posterior calf followed by superabsorber, dry sterile dressing and a 3M layer compression wrap was applied to right lower extremity. Patient will follow-up Sunday versus Sunday for nurse visit. Educated the patient to continue strict blood sugar control which she states she is trying. Referral for [facility] surgeon will be in December 2024. Arterial studies show evidence of biphasic Doppler waveforms noted to the ankle on the right lower extremity. Evidence of biphasic and triphasic Doppler waveforms noted at the ankle at the level of the left lower extremity. Pulse volume recordings appear satisfactory at the ankle and digital levels bilaterally. The resting ankle-brachial index cannot be determined due to the noncompressible vessels of the right lower extremity at the level of the ankle. The resting left ankle-brachial index is normal. Digital brachial indices are mildly diminished bilaterally. Overall there is evidence of arterial calcification at the ankle level on the right lower extremity. Arterial flow speech is normal at the ankle of the left lower extremity. 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 Due to the findings of the patient arterial studies we will be sending referral over to vascular surgery, Dr. Littlejohn's office at [facility]. Patient will leave her dressing clean dry and intact and elevated as discussed. She will follow-up Sunday versus Sunday for nursing visit. Follow-up at the wound care center with Dr. Lord in 1 week. (2) Medical non-compliance: CODE(S): Z91.199 - Patient's noncompliance with other medical treatment and regimen due to unspecified reason (3) Lymphedema, not elsewhere classified: CODE(S): I89.0 - Lymphedema, not elsewhere classified (4) Calciphylaxis: CODE(S): E83.59 - Other disorders of calcium metabolism
[2024-08-11 10:48] VITALS: BP 153/87; PULSE 117; RESP 20; TEMP 36.4; BMI 62.5
[2024-08-13 11:43] VITALS: BP 157/78; PULSE 116; RESP 22; TEMP 36.2; BMI 62.5
--- NOTE | 2024-08-13 12:51 | PCM.WC.PN ---
History of Present Illness Date of Service: 08/13/24 Chief Complaint: Ulceration right posterior leg History of Wound: Ulceration right posterior leg Progress of Wound: Chronic ulceration to right leg that she will shows evidence of drainage due to leg swelling. Wound is chronic in nature due to possible noncompliance. Would recommend bariatric referral for weight loss program and or surgery. Subjective Subjective Ms. Rodriguez is a 43-year-old diabetic female presenting to wound care center today for follow-up evaluation of full-thickness wound to the right posterior calf. Patient has been compliant with her dressing wrap and has left it clean dry and intact. She denies any strikethrough. She has been keeping her blood sugar under control per her words. She admits to some pain to the right leg. She denies any trauma. Denies constitutional symptoms. No other pedal complaints at this time. Objective Data Objective Data Vital Signs: Vital Signs Temp Pulse Resp BP O2 Del Method 97.2 F L 116 H 22 H 157/78 H Room Air 08/13/24 11:43 08/13/24 11:43 08/13/24 11:43 08/13/24 11:43 07/30/24 11:55 Oxygen Delivery Method Room Air Weight: 160.223 kg Body Mass Index (BMI) 62.5 Physical Exam Narrative Vascular: DP and PT pulses palpable. CFT is brisk. Nonpitting edema appreciated to right lower extremity. Erythema to the right posterior calf, improving. Skin temperature gradient is warm to warm from proximal ankles to distal digit with mild focal increase appreciated to the posterior calf. Neurological: Light touch intact. Patient response to painful stimuli. Dermatological: Multiple fissuring appreciated to the posterior right calf secondary to swelling. Full-thickness ulceration measures right calf measuring 1.5 x 0.2 x 0.4 cm. No drainage at this time. Erythema is blanchable. Breakdown of skin noticed stable without drainage. Excisional debridement down to including subcutaneous tissue of the right posterior calf with a number 3 mm dermal curette without incident. Predebridement measurement was 1.4 x 0.1 x 0.3 cm. Postdebridement measurement is 1.5 x 0.2 x 0.4 cm. Musculoskeletal: No pain with calf compression. Mild pain to palpation full-thickness ulceration right calf. Debridement Note Debridement Note Debridement Free Text: Excisional debridement down to including subcutaneous tissue of the right posterior calf with a number 3 mm dermal curette without incident. Predebridement measurement was 1.4 x 0.1 x 0.3 cm. Postdebridement measurement is 1.5 x 0.2 x 0.4 cm. Post-Debridement Measurements and Additional Note: Post-Debridement Measurements/Treatment WC - Nurse 1 - General Ulcer Assessment Start: 07/21/24 13:09 Freq: Status: Active Protocol: [place]AT[place] Activity Type Activity Date Activity User E-sign Co-sign Detail Recorded Client Recorded Date Recorded By Document 07/21/24 13:12 KW [id number] 07/21/24 13:20 KW Document 07/28/24 14:40 ML [id number] 07/28/24 14:45 ML Document 07/30/24 11:55 GM [id number] 07/30/24 11:57 GM Document 08/06/24 11:33 DL [id number] 08/06/24 11:42 DL Document 08/11/24 10:48 DL [id number] 08/11/24 11:09 DL Document 08/13/24 11:43 DL [id number] 08/13/24 11:49 DL 07/21/24 07/28/24 07/30/24 13:12 14:40 11:55 WC - Today's Visit Information Type of service Follow-up Visit Follow-up Visit Follow-up Visit (Physician/CARD PUNCHER (Physician/CARD PUNCHER (Physician/CARD PUNCHER ) ) ) Arrival Mode Ambulatory Ambulatory Ambulatory Transfer Assistance None None Patient Identification Verified (Name & Yes Yes Yes ) Patient Requires Transmission-Based No Precautions Finger Stick Blood Sugar(mg/dl) (if 177 indicated): Blood Sugar Stated by Patient Height and Weight Body Mass Index (BMI) 62.5 62.5 62.5 BMI Classification Obese Obese Obese Vital Signs Temperature (97.8 F-99.1 F) 97.5 F L 96.5 F L 97.1 F L Temperature Source Temporal Temporal Temporal Pulse Rate (60-100) 117 H 106 H 117 H Pulse Location Monitor Monitor Monitor Respiratory Rate (12-18) 18 14 20 H Respiratory rate source Observation Observation Observation Oxygen Delivery Method Room Air Room Air Blood Pressure (90/60-120/80) 157/90 H 165/87 H 127/99 H Blood Pressure Mean (mm Hg) 112 113 108 Source Monitor Monitor Monitor Position Sitting Sitting Sitting Blood Pressure Location Left Forearm Right Arm Left Forearm History Since Last Visit- (Skip if this is Patient's initial visit) Have you changed medications since your No No No last visit? Any new allergies or adverse reactions No No No Had a fall/change in ADL's that may No No No increase risk of falls Signs or symptoms of abuse and/or No No No neglect since last visit Have you been in the hospital since your No No No last visit? Has dressing in place as prescribed Yes No Yes Has compression in place as prescribed Yes N/A Yes Has offloadiing in place as prescribed N/A N/A N/A Experienced any changes in pain level or No No No management Left Footwear Regular Shoe Slipper Right Footwear Regular Shoe Slipper Pain Scale: 0-10 Numeric Is Patient Pain Free? Yes Yes Yes 08/06/24 08/11/24 08/13/24 11:33 10:48 11:43 WC - Today's Visit Information Type of service Follow-up Visit Nurse-only Follow-up Visit (Physician/CARD PUNCHER Visit (Physician/CARD PUNCHER ) ) Arrival Mode Ambulatory Ambulatory Ambulatory Transfer Assistance None None None Patient Identification Verified (Name & Yes Yes Yes ) Patient Requires Transmission-Based No No No Precautions Finger Stick Blood Sugar(mg/dl) (if indicated): Blood Sugar Height and Weight Body Mass Index (BMI) 62.5 62.5 62.5 BMI Classification Obese Obese Obese Vital Signs Temperature (97.8 F-99.1 F) 97.3 F L 97.6 F L 97.2 F L Temperature Source Temporal Temporal Temporal Pulse Rate (60-100) 115 H 117 H 116 H Pulse Location Monitor Monitor Monitor Respiratory Rate (12-18) 18 20 H 22 H Respiratory rate source Observation Observation Observation Oxygen Delivery Method Blood Pressure (90/60-120/80) 166/87 H 153/87 H 157/78 H Blood Pressure Mean (mm Hg) 113 109 104 Source Monitor Monitor Monitor Position Blood Pressure Location History Since Last Visit- (Skip if this is Patient's initial visit) Have you changed medications since your No No No last visit? Any new allergies or adverse reactions No No No Had a fall/change in ADL's that may No No No increase risk of falls Signs or symptoms of abuse and/or No No No neglect since last visit Have you been in the hospital since your No No No last visit? Has dressing in place as prescribed Yes Yes Yes Has compression in place as prescribed Yes Yes Yes Has offloadiing in place as prescribed Yes N/A N/A Experienced any changes in pain level or No No No management Left Footwear Regular Shoe Right Footwear Regular Shoe Pain Scale: 0-10 Numeric Is Patient Pain Free? Yes Yes Yes WC - Nurse 1 - General Ulcer Measurement Start: 07/21/24 13:09 Freq: Status: Active Protocol: Activity Type Activity Date Activity User E-sign Co-sign Detail Recorded Client Recorded Date Recorded By Document 07/21/24 13:12 KW [id number] 07/21/24 13:20 KW Document 07/28/24 14:40 ML [id number] 07/28/24 14:45 ML Document 07/30/24 11:55 GM [id number] 07/30/24 11:57 GM Document 08/06/24 11:33 DL [id number] 08/06/24 11:42 DL Edit Result 08/06/24 11:33 DL (1) [id number] 08/06/24 11:43 DL Document 08/11/24 10:48 DL [id number] 08/11/24 11:09 DL Document 08/13/24 11:43 DL [id number] 08/13/24 11:49 DL (1) Right Calf (cm) 63.8 => 68.8 07/21/24 07/28/24 07/30/24 13:12 14:40 11:55 Wound Center Nurse 1 #1 R post LE- post-op cluster -Current Size (cm) - Length 1.8 0.3 0.5 -Current Size (cm) - Width 0.2 0.3 0.7 -Current Size (cm) - Depth 0.7 0.5 0.1 -Total Square Cm 0.36 0.09 0.35 -Date of Last Picture (Recall this 07/21/24 field) -Photo Taken No -Epithelialization Small 1-33% -Tunneling No -Undermining/Tunneling No -Circular Undermining No -Exudate Amt Large Medium Large -Exudate Type Serosanguineous Serosanguineous Serous -Wound Margin Thickened Distinct, Distinct, Outline Outline Attached Attached -Granulation Amt Medium (34-66%) Medium (34-66%) -Granulation Quality [place] -Slough/Fibrin No -Necrosis Amt Medium (34-66%) Medium (34-66%) -Necrotic Tissue Type Adherent Slough -Structure Exposed -Texture ([place]-wound Skin Appearance) Assessed, Assessed Assessed Localized Edema -Moisture ([place]-wound Skin Appearance) Maceration Assessed Assessed -Color ([place]-wound Skin Appearance) Assessed, Not Assessed Assessed, Erythema Erythema -Temperature ([place]-wound Skin No Abnormality No Abnormality No Abnormality Appearance) (Pt Warm) (Pt Warm) (Pt Warm) -Tenderness on Palpation ([place]-wound No No Skin Appearance) -Ulcer Cleansing Rinsed/ Rinsed/ Soap and Water Irrigated with Irrigated with Saline Saline -Foul Odor after Cleansing No No No -Anesthetic Used 5% Lidocaine 5% Lidocaine 5% Lidocaine Gel Gel Gel Right Calf (cm) 69 67.5 Right Ankle (cm) 34 32.5 32.5 Left Calf (cm) Point of measurement (cm from the medial 66.5 instep) Left Ankle (cm) 08/06/24 08/11/24 08/13/24 11:33 10:48 11:43 Wound Center Nurse 1 #1 R post LE- post-op cluster -Current Size (cm) - Length 2.5 0.1 -Current Size (cm) - Width 0.3 0.1 -Current Size (cm) - Depth 0.8 0.1 -Total Square Cm 0.75 0.01 -Date of Last Picture (Recall this field) -Photo Taken Yes -Epithelialization -Tunneling -Undermining/Tunneling -Circular Undermining -Exudate Amt Small Medium -Exudate Type Serosanguineous Serosanguineous -Wound Margin Distinct, Indistinct, Non Indistinct, Non Outline -Visible -Visible Attached -Granulation Amt Small (1-33%) Medium (34-66%) Small (1-33%) -Granulation Quality [place] -Slough/Fibrin -Necrosis Amt Small (1-33%) Medium (34-66%) Small (1-33%) -Necrotic Tissue Type Adherent Slough Adherent Slough Adherent Slough -Structure Exposed N/A N/A N/A -Texture ([place]-wound Skin Appearance) Localized Edema Localized Edema Excoriation, ,Scarring,Rash ,Scarring Localized Edema -Moisture ([place]-wound Skin Appearance) Maceration, Maceration, Weeping Weeping -Color ([place]-wound Skin Appearance) No Abnormality No Abnormality No Abnormality -Temperature ([place]-wound Skin No Abnormality No Abnormality No Abnormality Appearance) (Pt Warm) (Pt Warm) (Pt Warm) -Tenderness on Palpation ([place]-wound Skin Appearance) -Ulcer Cleansing Soap and Water Soap and Water Soap and Water -Foul Odor after Cleansing No No No -Anesthetic Used 5% Lidocaine 5% Lidocaine Gel Gel Right Calf (cm) 68.8 Right Ankle (cm) 33.6 Left Calf (cm) 67.2 Point of measurement (cm from the medial instep) Left Ankle (cm) 32.5 WC - Nurse 2 - General Ulcer CM Notes Start: 07/21/24 13:09 Freq: Status: Active Protocol: Activity Type Activity Date Activity User E-sign Co-sign Detail Recorded Client Recorded Date Recorded By Document 07/28/24 15:29 [id number] 07/28/24 15:45 Document 07/30/24 12:04 [id number] 07/30/24 12:07 Document 08/06/24 12:30 [id number] 08/06/24 12:32 Document 08/13/24 11:59 [id number] 08/13/24 12:01 07/28/24 07/30/24 08/06/24 15:29 12:04 12:30 Wound Center Nurse 2 #1 R post LE- post-op cluster -Time 12:05 12:32 -Correct Patient No Yes Yes -Correct Side, Site, Position No Yes Yes -Correct Procedure No Yes Yes -Procedure Performed No Yes Yes -Type of Procedure Debridement Debridement -Clinical Debridement Subcutaneous Subcutaneous -Tissue Removed Subcutaneous Subcutaneous -Post Debridement (cm) - Length 1.5 1.5 -Post Debridement (cm) - Width 0.4 0.7 -Post Debridement (cm) - Depth 0.8 0.4 -Total Square (Post) (cm) 0.60 1.05 -Area of Debridement (cm) - Length 1.5 1.5 -Area of Debridement (cm) - Width 0.4 0.7 -Total Square (Area) (cm) 0.60 1.05 -Tunneling No No -Undermining/Tunneling No No -Circular Undermining No No -Wound/Ulcer Outcome Not Healed Not Healed Not Healed -Ulcer Cleansing Rinsed/ Rinsed/ Irrigated with Irrigated with Saline Saline -Foul Odor after Cleansing No No -Bioengineered Tissue No No -Bleeding Controlled with Pressure Pressure -Treatment Response Procedure Not Procedure Tolerated Well Tolerated Well -Offloading No No -Debridement - Subq, 1st 20sq cm Yes Yes Pain Scale: 0-10 Numeric Is Patient Pain Free? Yes Yes Yes 08/13/24 11:59 Wound Center Nurse 2 #1 R post LE- post-op cluster -Time -Correct Patient Yes -Correct Side, Site, Position Yes -Correct Procedure Yes -Procedure Performed Yes -Type of Procedure Debridement -Clinical Debridement Subcutaneous -Tissue Removed Subcutaneous -Post Debridement (cm) - Length 1.5 -Post Debridement (cm) - Width 0.2 -Post Debridement (cm) - Depth 0.4 -Total Square (Post) (cm) 0.30 -Area of Debridement (cm) - Length 1.5 -Area of Debridement (cm) - Width 0.2 -Total Square (Area) (cm) 0.30 -Tunneling No -Undermining/Tunneling No -Circular Undermining No -Wound/Ulcer Outcome Not Healed -Ulcer Cleansing Rinsed/ Irrigated with Saline -Foul Odor after Cleansing No -Bioengineered Tissue No -Bleeding Controlled with Pressure -Treatment Response Procedure Tolerated Well -Offloading No -Debridement - Subq, 1st 20sq cm Yes Pain Scale: 0-10 Numeric Is Patient Pain Free? Yes - Nurse 3 - General Ulcer D/C NN Start: 07/21/24 13:09 Freq: Status: Active Protocol: Activity Type Activity Date Activity User E-sign Co-sign Detail Recorded Client Recorded Date Recorded By Document 07/21/24 15:15 DL [id number] 07/21/24 15:16 DL Document 07/28/24 15:55 DL [id number] 07/28/24 15:56 DL Document 07/30/24 12:37 CP [id number] 07/30/24 12:39 CP Document 08/06/24 12:58 DL [id number] 08/06/24 12:59 DL Document 08/11/24 10:48 DL [id number] 08/11/24 11:09 DL Document 08/13/24 12:26 RB [id number] 08/13/24 12:27 RB 07/21/24 07/28/24 07/30/24 15:15 15:55 12:37 Wound Care Center Nurse 3 #1 R post LE- post-op cluster -Ulcer Cleansing Rinsed/ Rinsed/ Rinsed/ Irrigated with Irrigated with Irrigated with Saline Saline Saline -Foul Odor after Cleansing No -Primary Dressing Applied -Other Dressing Gentamycin oint dakins gauze -Primary Dressing Covered/Secured with Dry Gauze, Dry Gauze & Dry Gauze & Secured with Roll Gauze, Roll Gauze, Tape Secured with Secured with Tape Tape -Optilok 6.5x10 1 -Optilok 8x12 -Wound Comment(s) Nurse visit today ble -Multi-Layered Wrap Application -Tubular Bandage Double Layer -Size of Tubigrip Used Size F -Size F ($) 2 Right -Lotion applied to leg before No compression wrap -Multi-Layered Wrap Application Multi-Layer Comp - Right ($ ) -Tubular Bandage Double Layer -Size of Tubigrip Used Size F -Size F ($) 2 Treatment Response Procedure Procedure Tolerated Well Tolerated Well Vital Signs Temperature (97.8 F-99.1 F) Temperature Source Pulse Rate (60-100) Pulse Location Respiratory Rate (12-18) Respiratory rate source Blood Pressure (90/60-120/80) Blood Pressure Mean (mm Hg) Source Pain Scale: 0-10 Numeric Is Patient Pain Free? Yes Yes No WC - Visit Discharge Discharge Condition Stable Stable Stable Ambulatory Status Ambulatory Ambulatory Ambulatory Transportation Private Auto Private Auto Private Auto Medication Reconcilliation completed & provided to patient/care provider Clinical Summary of Care Provided Yes 08/06/24 08/11/24 08/13/24 12:58 10:48 12:26 Wound Care Center Nurse 3 #1 R post LE- post-op cluster -Ulcer Cleansing Rinsed/ Soap and Water Irrigated with Saline -Foul Odor after Cleansing No No -Primary Dressing Applied Optilok 6.5x10 Optilok 6.5x10 Optilok 6.5x10, Optilok 8x12 -Other Dressing bacitracin Bacitracin pt's own gentamycin ointment -Primary Dressing Covered/Secured with Dry Gauze & Dry Gauze & Roll Gauze Roll Gauze, Secured with Tape -Optilok 6.5x10 1 1 1 -Optilok 8x12 1 -Wound Comment(s) ble -Multi-Layered Wrap Application Multi-Layer Comp - Right ($ ) -Tubular Bandage -Size of Tubigrip Used -Size F ($) Right -Lotion applied to leg before compression wrap -Multi-Layered Wrap Application Multi-Layer Multi-Layer Comp - Right ($ Comp - Right ($ ) ) -Tubular Bandage -Size of Tubigrip Used -Size F ($) Treatment Response Procedure Procedure Procedure Tolerated Well Tolerated Well Tolerated Well Vital Signs Temperature (97.8 F-99.1 F) 97.6 F L Temperature Source Temporal Pulse Rate (60-100) 117 H Pulse Location Monitor Respiratory Rate (12-18) 20 H Respiratory rate source Observation Blood Pressure (90/60-120/80) 153/87 H Blood Pressure Mean (mm Hg) 109 Source Monitor Pain Scale: 0-10 Numeric Is Patient Pain Free? 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 All findings were discussed with the patient. All questions were answered to the patient's satisfaction. Excisional debridement down to including subcutaneous tissue of the right posterior calf with a number 3 mm dermal curette without incident. Predebridement measurement was 1.4 x 0.1 x 0.3 cm. Postdebridement measurement is 1.5 x 0.2 x 0.4 cm. Right lower extremities were cleaned and patted dry. The patient has been showing improvement after 1 week of multilayer compression bandage. We will move forward with the same type of dressing. Gentamicin ointment was applied to the posterior right calf followed by 3M multilayer compression bandage. Patient will follow-up for nursing visit as needed. Patient will continue strict blood sugar control. Patient will follow-up in 2 weeks with nursing visits in between. Patient is planning to have vascular studies within the next 2 weeks of follow-up. (2) Medical non-compliance: CODE(S): Z91.199 - Patient's noncompliance with other medical treatment and regimen due to unspecified reason (3) Lymphedema, not elsewhere classified: CODE(S): I89.0 - Lymphedema, not elsewhere classified (4) Calciphylaxis: CODE(S): E83.59 - Other disorders of calcium metabolism
== END 2024-08-16 23:59 | disposition home or self-care (01) ==
LOC: WC 12:00
PROVIDERS: PCP Internal Medicine; Referring Provider Internal Medicine; Visit Provider Surgery Plastic and Reconstructive Surgery
DX: E11.622 Type 2 diabetes mellitus with other skin ulcer (principal); L97.212 Non-pressure chronic ulcer of right calf with fat layer exposed; I89.0 Lymphedema, not elsewhere classified; M79.89 Other specified soft tissue disorders; M79.604 Pain in right leg; Z79.84 Long term (current) use of oral hypoglycemic drugs; Z79.899 Other long term (current) drug therapy; Z91.199 Patient's noncompliance with other medical treatment and regimen due to unspecified reason; E83.59 Other disorders of calcium metabolism
CPT/HCPCS: 11042; 29581; 93923; 93970; 99213; G0463

== ENCOUNTER 2024-09-16 10:30 | Outpatient (RCR) | payer MEDICAID, SELFPAY ==
[2024-08-17 00:42] VITALS: BP 143/85; PULSE 113; RESP 18; TEMP 36.6; BMI 62.5
[2024-08-18 09:22] VITALS: BP 135/83; PULSE 118; RESP 22; TEMP 36.1; BMI 62.5
[2024-08-22 10:23] VITALS: BP 133/76; PULSE 113; RESP 18; TEMP 36.1; BMI 62.5
[2024-08-25 11:55] VITALS: BP 156/90; PULSE 114; RESP 22; TEMP 36.5; BMI 62.5
[2024-08-27 12:03] VITALS: BP 157/89; PULSE 116; RESP 18; TEMP 36.2; BMI 62.5
--- NOTE | 2024-08-27 14:36 | PN.PCM_ITS ---
History of Present Illness Date of Service: 08/27/24 Chief Complaint: Ulceration right posterior leg History of Wound: Ulceration right posterior leg Subjective Subjective Ms. Rodriguez is a 43-year-old diabetic female presented wound care center today follow-up evaluation of full-thickness wound to the right leg. Patient has been compliant with her multilayer compression bandage. She has followed up with her nursing visits. Blood sugars well-controlled. Denies trauma. Denies constitutional symptoms. No other pedal complaints at this time. Objective Data Objective Data Vital Signs: Vital Signs Temp Pulse Resp BP O2 Del Method 97.2 F L 116 H 18 157/89 H Room Air 08/27/24 12:03 08/27/24 12:03 08/27/24 12:03 08/27/24 12:08/22/24 10:23 Oxygen Delivery Method Room Air Weight: 160.223 kg Body Mass Index (BMI) 62.5 Physical Exam Narrative Vascular: DP and PT pulses palpable. CFT is brisk. Nonpitting edema appreciated to right lower extremity. Erythema to the right posterior calf, improving. Skin temperature gradient is warm to warm from proximal ankles to distal digit with mild focal increase appreciated to the posterior calf. Neurological: Light touch intact. Patient response to painful stimuli. Dermatological: Periwound maceration appreciated to the calf area of the right lower extremity. Full-thickness wound measures 1.7 x 0.6 x 0.6 cm. Wound base is granular with maceration. No malodor or drainage. Excisional debridement down to including subcutaneous tissue of the right posterior calf with a number 3 mm dermal curette without incident. Predebridement measurement was 1.5 x 0.5 x 0.5 cm. Postdebridement measurement is 1.7 x 0.6 x 0.6 cm. Musculoskeletal: No pain with calf compression. Mild pain to palpation full- thickness ulceration right calf. Debridement Note Debridement Note Debridement Free Text: Excisional debridement down to including subcutaneous tissue of the right posterior calf with a number 3 mm dermal curette without incident. Predebridement measurement was 1.5 x 0.5 x 0.5 cm. Postdebridement measurement is 1.7 x 0.6 x 0.6 cm. Post-Debridement Measurements and Additional Note: Post-Debridement Measurements/Treatment WC - Nurse 1 - General Ulcer Assessment Start: 08/18/24 09:22 Freq: Status: Active Protocol: WC.LOWEXT Activity Type Activity Date Activity User E-sign Co-sign Detail Recorded Client Recorded Date Recorded By Document 08/18/24 09:22 DL [id number] 08/18/24 09:41 DL Document 08/22/24 10:23 DS [id number] 08/22/24 10:24 DS Document 08/25/24 11:55 DL [id number] 08/25/24 11:59 DL Document 08/27/24 12:03 RB [id number] 08/27/24 12:05 RB 08/18/24 08/22/24 08/25/24 09:22 10:23 11:55 WC - Today's Visit Information Type of service Nurse-only Nurse-only Nurse-only Visit Visit Visit Arrival Mode Ambulatory Ambulatory Ambulatory Transfer Assistance None None Patient Identification Verified (Name & Yes Yes Yes ) Patient Requires Transmission-Based No No No Precautions Height and Weight Body Mass Index (BMI) 62.5 62.5 62.5 BMI Classification Obese Obese Obese Vital Signs Temperature (97.8 F-99.1 F) 97 F L 96.9 F L 97.7 F L Temperature Source Temporal Temporal Temporal Pulse Rate (60-100) 118 H 113 H 114 H Pulse Location Monitor Monitor Monitor Respiratory Rate (12-18) 22 H 18 22 H Respiratory rate source Observation Observation Observation Oxygen Delivery Method Room Air Blood Pressure (90/60-120/80) 135/83 H 133/76 H 156/90 H Blood Pressure Mean (mm Hg) 100 95 112 Source Monitor Monitor Monitor Position Sitting Blood Pressure Location Left Arm History Since Last Visit- (Skip if this is Patient's initial visit) Have you changed medications since your No No last visit? Any new allergies or adverse reactions No No Had a fall/change in ADL's that may No No increase risk of falls Signs or symptoms of abuse and/or No No neglect since last visit Have you been in the hospital since your No No last visit? Has dressing in place as prescribed Yes Yes Has compression in place as prescribed Yes Yes Has offloadiing in place as prescribed N/A N/A Experienced any changes in pain level or No No management Left Footwear Slipper Right Footwear Slipper Pain Scale: 0-10 Numeric Is Patient Pain Free? 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 ) Arrival Mode Ambulatory Transfer Assistance None Patient Identification Verified (Name & Yes ) Patient Requires Transmission-Based No Precautions Height and Weight Body Mass Index (BMI) 62.5 BMI Classification Obese Vital Signs Temperature (97.8 F-99.1 F) 97.2 F L Temperature Source Temporal Pulse Rate (60-100) 116 H Pulse Location Monitor Respiratory Rate (12-18) 18 Respiratory rate source Observation Oxygen Delivery Method Blood Pressure (90/60-120/80) 157/89 H Blood Pressure Mean (mm Hg) 111 Source Monitor Position Sitting Blood Pressure Location Right Arm History Since Last Visit- (Skip if this is Patient's initial visit) Have you changed medications since your No last visit? Any new allergies or adverse reactions No Had a fall/change in ADL's that may No increase risk of falls Signs or symptoms of abuse and/or No neglect since last visit Have you been in the hospital since your No last visit? Has dressing in place as prescribed Yes Has compression in place as prescribed Yes Has offloadiing in place as prescribed No Experienced any changes in pain level or No management Left Footwear Right Footwear Pain Scale: 0-10 Numeric Is Patient Pain Free? Yes - Nurse 1 - General Ulcer Measurement Start: 08/18/24 09:22 Freq: Status: Active Protocol: Activity Type Activity Date Activity User E-sign Co-sign Detail Recorded Client Recorded Date Recorded By Document 08/18/24 09:41 DL [id number] 08/18/24 09:43 DL Document 08/25/24 11:55 DL [id number] 08/25/24 11:59 DL Document 08/27/24 12:03 RB [id number] 08/27/24 12:05 RB 08/18/24 08/25/24 08/27/24 09:41 11:55 12:03 Wound Center Nurse 1 #1 R post LE- post-op cluster -Combined with other wound No -Current Size (cm) - Length 9 -Current Size (cm) - Width 9 -Current Size (cm) - Depth 0.1 -Total Square Cm 81 -Tunneling No -Undermining/Tunneling No -Circular Undermining No -Exudate Amt Large Medium Large -Exudate Type Serosanguineous Serosanguineous Serosanguineous -Wound Margin Distinct, Distinct, Outline Outline Attached Attached -Granulation Amt None Present (0 Small (1-33%) Large (67-100%) %) -Granulation Quality [place] -Slough/Fibrin Yes -Necrosis Amt Large (67-100%) Large (67-100%) Medium (34-66%) -Necrotic Tissue Type Adherent Slough Adherent Slough Adherent Slough -Structure Exposed N/A N/A N/A -Texture (Rachele-wound Skin Appearance) Scarring Localized Edema Assessed, ,Scarring Localized Edema -Moisture (Rachele-wound Skin Appearance) Maceration, Maceration Maceration Weeping -Color (Rachele-wound Skin Appearance) No Abnormality No Abnormality Assessed -Temperature (Rachele-wound Skin No Abnormality No Abnormality No Abnormality Appearance) (Pt Warm) (Pt Warm) (Pt Warm) -Tenderness on Palpation (Rachele-wound No No No Skin Appearance) -Ulcer Cleansing Soap and Water Soap and Water Wound Cleanser -Foul Odor after Cleansing No No No -Anesthetic Used 5% Lidocaine Gel Lower Limb Edema Present Yes Right Calf (cm) 66.7 65 Right Ankle (cm) 31.8 31.3 WC - Nurse 2 - General Ulcer CM Notes Start: 08/18/24 09:22 Freq: Status: Active Protocol: Activity Type Activity Date Activity User E-sign Co-sign Detail Recorded Client Recorded Date Recorded By Document 08/27/24 12:24 RUBA [id number] 08/27/24 12:27 RUBA 08/27/24 12:24 Wound Center Nurse 2 #1 R post LE- post-op cluster -Time 12:25 -Correct Patient Yes -Correct Side, Site, Position Yes -Correct Procedure Yes -Procedure Performed Yes -Type of Procedure Debridement -Clinical Debridement Subcutaneous -Tissue Removed Subcutaneous -Post Debridement (cm) - Length 1.7 -Post Debridement (cm) - Width 0.6 -Post Debridement (cm) - Depth 0.6 -Total Square (Post) (cm) 1.02 -Area of Debridement (cm) - Length 1.7 -Area of Debridement (cm) - Width 0.6 -Total Square (Area) (cm) 1.02 -Tunneling No -Undermining/Tunneling No -Circular Undermining No -Wound/Ulcer Outcome Not Healed -Ulcer Cleansing Rinsed/ Irrigated with Saline -Foul Odor after Cleansing No -Bioengineered Tissue No -Bleeding Controlled with Pressure -Treatment Response Procedure Tolerated Well -Offloading No -Debridement - Subq, 1st 20sq cm Yes Pain Scale: 0-10 Numeric Is Patient Pain Free? Yes WC - Nurse 3 - General Ulcer D/C NN Start: 08/18/24 09:22 Freq: Status: Active Protocol: Activity Type Activity Date Activity User E-sign Co-sign Detail Recorded Client Recorded Date Recorded By Document 08/18/24 09:22 DL [id number] 08/18/24 09:41 DL Document 08/22/24 10:24 DS [id number] 08/22/24 10:34 DS Document 08/25/24 11:55 DL [id number] 08/25/24 11:59 DL Document 08/27/24 12:34 CP [id number] 08/27/24 12:35 CP 08/18/24 08/22/24 08/25/24 09:22 10:24 11:55 Vital Signs Temperature (97.8 F-99.1 F) 97 F L 97.7 F L Temperature Source Temporal Temporal Pulse Rate (60-100) 118 H 114 H Pulse Location Monitor Monitor Respiratory Rate (12-18) 22 H 22 H Respiratory rate source Observation Observation Blood Pressure (90/60-120/80) 135/83 H 156/90 H Blood Pressure Mean (mm Hg) 100 112 Source Monitor Monitor Pain Scale: 0-10 Numeric Is Patient Pain Free? Yes Yes Yes Wound Care Center Nurse 3 #1 R post LE- post-op cluster -Ulcer Cleansing Soap and Water Soap and Water Soap and Water -Foul Odor after Cleansing No No -Primary Dressing Applied Optilok 6.5x10 Optilok 8x12 Optilok 6.5x10 -Other Dressing gentamycin -Primary Dressing Covered/Secured with Dry Gauze, Dry Gauze & Secured with Roll Gauze Tape -Optilok 6.5x10 1 1 -Optilok 8x12 1 Right -Multi-Layered Wrap Application Multi-Layer Multi-Layer Multi-Layer Comp - Right ($ Comp - Right ($ Comp - Right ($ ) ) ) -Tubular Bandage Single Layer -Size of Tubigrip Used Size F -Size F ($) 1 Treatment Response Procedure Procedure Tolerated Well Tolerated Well - Visit Discharge Discharge Condition Stable Stable Stable Ambulatory Status Ambulatory Ambulatory Ambulatory Transportation Private Auto Private Auto Transportation Medication Reconcilliation completed & provided to patient/care provider Clinical Summary of Care Provided 08/27/24 12:34 Vital Signs Temperature (97.8 F-99.1 F) Temperature Source Pulse Rate (60-100) Pulse Location Respiratory Rate (12-18) Respiratory rate source Blood Pressure (90/60-120/80) Blood Pressure Mean (mm Hg) Source Pain Scale: 0-10 Numeric Is Patient Pain Free? Yes Wound Care Center Nurse 3 #1 R post LE- post-op cluster -Ulcer Cleansing -Foul Odor after Cleansing -Primary Dressing Applied Optilok 8x12 -Other Dressing gentamycin to periwound -Primary Dressing Covered/Secured with Dry Gauze & Roll Gauze, Secured with Tape -Optilok 6.5x10 -Optilok 8x12 1 Right -Multi-Layered Wrap Application Multi-Layer Comp - Right ($ ) -Tubular Bandage -Size of Tubigrip Used -Size F ($) Treatment Response Procedure Tolerated Well WC - Visit Discharge Discharge Condition Stable Ambulatory Status Ambulatory Transportation Private Auto Medication Reconcilliation completed & No provided to patient/care provider Clinical Summary of Care Provided Yes Assessment/Plan Assessment/Plan (1) Non-pressure chronic ulcer of unspecified part of 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 All findings were discussed with the patient. All questions were answered to the patient's satisfaction. Excisional debridement down to including subcutaneous tissue of the right posterior calf with a number 3 mm dermal curette without incident. Predebridement measurement was 1.5 x 0.5 x 0.5 cm. Postdebridement measurement is 1.7 x 0.6 x 0.6 cm. Right lower extremities are clean and patted dry. Hydrogel was applied to the full-thickness wound followed by dry sterile dressing and 3M multilayer compression bandage. Patient will follow-up for nursing visits for dressing changes. Since the patient has failed outpatient multilayer compression bandages we will begin authorization to the patient's insurance for mechanical pumps to the bilateral lower extremity. Patient will continue strict blood sugar control. Follow-up at the wound care center with Dr. Lord in 1 week. (2) Lymphedema, not elsewhere classified: CODE(S): I89.0 - Lymphedema, not elsewhere classified (3) Morbidly obese: CODE(S): E66.01 - Morbid (severe) obesity due to excess calories (4) Medical non-compliance: CODE(S): Z91.199 - Patient's noncompliance with other medical treatment a nd regimen due to unspecified reason
[2024-09-01 08:57] VITALS: BP 151/81; PULSE 116; RESP 20; TEMP 35.8; BMI 62.5
[2024-09-03 12:14] VITALS: BP 159/91; PULSE 116; RESP 18; TEMP 36.5; BMI 62.5
--- NOTE | 2024-09-03 12:52 | PCM.WC.PN ---
History of Present Illness Date of Service: 09/03/24 Chief Complaint: Ulceration right posterior leg History of Wound: Ulceration right posterior leg Subjective Subjective Ms. Rodriguez is a 44-year-old diabetic female presenting wound care center today follow-up evaluation of posterior calf full-thickness ulceration. Patient has been compliant with her 3M multilayer compression wraps. She noticed improvement to her swelling to left lower extremity. She is coming to her nursing visits when able. She denies any trauma. Denies constitutional symptoms. No other pedal complaints at this time. Objective Data Objective Data Vital Signs: Vital Signs Temp Pulse Resp BP O2 Del Method 97.7 F L 116 H 18 159/91 H Room Air 09/03/24 12:14 09/03/24 12:14 09/03/24 12:14 09/03/24 12:14 09/03/24 12:14 Oxygen Delivery Method Room Air Weight: 160.223 kg Body Mass Index (BMI) 62.5 Physical Exam Narrative Vascular: DP and PT pulses palpable. CFT is brisk. Nonpitting edema appreciated to right lower extremity. Erythema to the right posterior calf, improving. Skin temperature gradient is warm to warm from proximal ankles to distal digit with mild focal increase appreciated to the posterior calf. Neurological: Light touch intact. Patient response to painful stimuli. Dermatological: Periwound maceration appreciated to the calf area of the right lower extremity, improving. Full-thickness wound measures 1.3 x 0.4 x 0.6 cm. Wound base is granular. No malodor or drainage. Excisional debridement down to including subcutaneous tissue of the right posterior calf with a number 3 mm dermal curette without incident. Predebridement measurement was 1.2 x 0.3 x 0.5 cm. Postdebridement measurement is 1.3 x 0.4 x 0.6 cm. Musculoskeletal: No pain with calf compression. No pain to palpation full-thickness ulceration right calf. Debridement Note Debridement Note Debridement Free Text: Excisional debridement down to including subcutaneous tissue of the right posterior calf with a number 3 mm dermal curette without incident. Predebridement measurement was 1.2 x 0.3 x 0.5 cm. Postdebridement measurement is 1.3 x 0.4 x 0.6 cm. Post-Debridement Measurements and Additional Note: Post-Debridement Measurements/Treatment WC - Nurse 1 - General Ulcer Assessment Start: 08/18/24 09:22 Freq: Status: Active Protocol: WC.LOWEXT Activity Type Activity Date Activity User E-sign Co-sign Detail Recorded Client Recorded Date Recorded By Document 08/18/24 09:22 DL [id number] 08/18/24 09:41 DL Document 08/22/24 10:23 DS [id number] 08/22/24 10:24 DS Document 08/25/24 11:55 DL [id number] 08/25/24 11:59 DL Document 08/27/24 12:03 RB [id number] 08/27/24 12:05 RB Document 09/01/24 08:57 KW [id number] 09/01/24 09:16 KW Document 09/03/24 12:14 KW [id number] 09/03/24 12:19 KW 08/18/24 08/22/24 08/25/24 09:22 10:23 11:55 WC - Today's Visit Information Type of service Nurse-only Nurse-only Nurse-only Visit Visit Visit Arrival Mode Ambulatory Ambulatory Ambulatory Transfer Assistance None None Patient Identification Verified (Name & Yes Yes Yes ) Patient Requires Transmission-Based No No No Precautions Height and Weight Body Mass Index (BMI) 62.5 62.5 62.5 BMI Classification Obese Obese Obese Vital Signs Temperature (97.8 F-99.1 F) 97 F L 96.9 F L 97.7 F L Temperature Source Temporal Temporal Temporal Pulse Rate (60-100) 118 H 113 H 114 H Pulse Location Monitor Monitor Monitor Respiratory Rate (12-18) 22 H 18 22 H Respiratory rate source Observation Observation Observation Oxygen Delivery Method Room Air Blood Pressure (90/60-120/80) 135/83 H 133/76 H 156/90 H Blood Pressure Mean (mm Hg) 100 95 112 Source Monitor Monitor Monitor Position Sitting Blood Pressure Location Left Arm History Since Last Visit- (Skip if this is Patient's initial visit) Have you changed medications since your No No last visit? Any new allergies or adverse reactions No No Had a fall/change in ADL's that may No No increase risk of falls Signs or symptoms of abuse and/or No No neglect since last visit Have you been in the hospital since your No No last visit? Has dressing in place as prescribed Yes Yes Has compression in place as prescribed Yes Yes Has offloadiing in place as prescribed N/A N/A Experienced any changes in pain level or No No management Left Footwear Slipper Right Footwear Slipper Pain Scale: 0-10 Numeric Is Patient Pain Free? Yes Yes Yes 08/27/24 09/01/24 09/03/24 12:03 08:57 12:14 - Today's Visit Information Type of service Follow-up Visit Nurse-only Follow-up Visit (Physician/MACHINE CLOTH MEASURER Visit (Physician/MACHINE CLOTH MEASURER ) ) Arrival Mode Ambulatory Ambulatory Ambulatory Transfer Assistance None Patient Identification Verified (Name & Yes Yes Yes ) Patient Requires Transmission-Based No Precautions Height and Weight Body Mass Index (BMI) 62.5 62.5 62.5 BMI Classification Obese Obese Obese Vital Signs Temperature (97.8 F-99.1 F) 97.2 F L 96.5 F L 97.7 F L Temperature Source Temporal Temporal Temporal Pulse Rate (60-100) 116 H 116 H 116 H Pulse Location Monitor Monitor Monitor Respiratory Rate (12-18) 18 20 H 18 Respiratory rate source Observation Observation Observation Oxygen Delivery Method Room Air Room Air Blood Pressure (90/60-120/80) 157/89 H 151/81 H 159/91 H Blood Pressure Mean (mm Hg) 111 104 113 Source Monitor Monitor Monitor Position Sitting Sitting Semi-Fowlers Blood Pressure Location Right Arm Left Arm Left Arm History Since Last Visit- (Skip if this is Patient's initial visit) Have you changed medications since your No No No last visit? Any new allergies or adverse reactions No No No Had a fall/change in ADL's that may No No No increase risk of falls Signs or symptoms of abuse and/or No No No neglect since last visit Have you been in the hospital since your No No No last visit? Has dressing in place as prescribed Yes Yes Yes Has compression in place as prescribed Yes Yes Yes Has offloadiing in place as prescribed No N/A N/A Experienced any changes in pain level or No No No management Left Footwear Regular Shoe Regular Shoe Right Footwear Regular Shoe Regular Shoe Pain Scale: 0-10 Numeric Is Patient Pain Free? Yes Yes Yes - Nurse 1 - General Ulcer Measurement Start: 08/18/24 09:22 Freq: Status: Active Protocol: Activity Type Activity Date Activity User E-sign Co-sign Detail Recorded Client Recorded Date Recorded By Document 08/18/24 09:41 DL [id number] 08/18/24 09:43 DL Document 08/25/24 11:55 DL [id number] 08/25/24 11:59 DL Document 08/27/24 12:03 RB [id number] 08/27/24 12:05 RB Document 09/03/24 12:14 KW [id number] 09/03/24 12:19 KW 08/18/24 08/25/24 08/27/24 09:41 11:55 12:03 Wound Center Nurse 1 #1 R post LE- post-op cluster -Combined with other wound No -Current Size (cm) - Length 9 -Current Size (cm) - Width 9 -Current Size (cm) - Depth 0.1 -Total Square Cm 81 -Tunneling No -Undermining/Tunneling No -Circular Undermining No -Exudate Amt Large Medium Large -Exudate Type Serosanguineous Serosanguineous Serosanguineous -Wound Margin Distinct, Distinct, Outline Outline Attached Attached -Granulation Amt None Present (0 Small (1-33%) Large (67-100%) %) -Granulation Quality Backus Backus -Slough/Fibrin Yes -Necrosis Amt Large (67-100%) Large (67-100%) Medium (34-66%) -Necrotic Tissue Type Adherent Slough Adherent Slough Adherent Slough -Structure Exposed N/A N/A N/A -Texture (Rachele-wound Skin Appearance) Scarring Localized Edema Assessed, ,Scarring Localized Edema -Moisture (Rachele-wound Skin Appearance) Maceration, Maceration Maceration Weeping -Color (Rachele-wound Skin Appearance) No Abnormality No Abnormality Assessed -Temperature (Rachele-wound Skin No Abnormality No Abnormality No Abnormality Appearance) (Pt Warm) (Pt Warm) (Pt Warm) -Tenderness on Palpation (Rachele-wound No No No Skin Appearance) -Ulcer Cleansing Soap and Water Soap and Water Wound Cleanser -Foul Odor after Cleansing No No No -Anesthetic Used 5% Lidocaine Gel Lower Limb Edema Present Yes Right Calf (cm) 66.7 65 Right Ankle (cm) 31.8 31.3 09/03/24 12:14 Wound Center Nurse 1 #1 R post LE- post-op cluster -Combined with other wound -Current Size (cm) - Length 7.5 -Current Size (cm) - Width 7.5 -Current Size (cm) - Depth 0.3 -Total Square Cm 56.25 -Tunneling -Undermining/Tunneling -Circular Undermining -Exudate Amt Small -Exudate Type Serosanguineous -Wound Margin Distinct, Outline Attached -Granulation Amt Large (67-100%) -Granulation Quality Backus -Slough/Fibrin -Necrosis Amt Small (1-33%) -Necrotic Tissue Type Adherent Slough -Structure Exposed -Texture (Rachele-wound Skin Appearance) Assessed -Moisture (Rachele-wound Skin Appearance) Assessed, Maceration -Color (Rachele-wound Skin Appearance) Assessed -Temperature (Rachele-wound Skin No Abnormality Appearance) (Pt Warm) -Tenderness on Palpation (Rachele-wound No Skin Appearance) -Ulcer Cleansing Soap and Water -Foul Odor after Cleansing No -Anesthetic Used 5% Lidocaine Gel Lower Limb Edema Present Right Calf (cm) 65.2 Right Ankle (cm) 31.5 WC - Nurse 2 - General Ulcer CM Notes Start: 08/18/24 09:22 Freq: Status: Active Protocol: Activity Type Activity Date Activity User E-sign Co-sign Detail Recorded Client Recorded Date Recorded By Document 08/27/24 12:24 [id number] 08/27/24 12:27 Document 09/03/24 12:45 [id number] 09/03/24 12:47 08/27/24 09/03/24 12:24 12:45 Wound Center Nurse 2 #1 R post LE- post-op cluster -Time 12:25 12:46 -Correct Patient Yes Yes -Correct Side, Site, Position Yes Yes -Correct Procedure Yes Yes -Procedure Performed Yes Yes -Type of Procedure Debridement Debridement -Clinical Debridement Subcutaneous Subcutaneous -Tissue Removed Subcutaneous Subcutaneous -Post Debridement (cm) - Length 1.7 1.3 -Post Debridement (cm) - Width 0.6 0.4 -Post Debridement (cm) - Depth 0.6 0.6 -Total Square (Post) (cm) 1.02 0.52 -Area of Debridement (cm) - Length 1.7 1.3 -Area of Debridement (cm) - Width 0.6 0.4 -Total Square (Area) (cm) 1.02 0.52 -Tunneling No No -Undermining/Tunneling No No -Circular Undermining No No -Wound/Ulcer Outcome Not Healed Not Healed -Ulcer Cleansing Rinsed/ Rinsed/ Irrigated with Irrigated with Saline Saline -Foul Odor after Cleansing No No -Bioengineered Tissue No No -Bleeding Controlled with Pressure Pressure -Treatment Response Procedure Procedure Tolerated Well Tolerated Well -Offloading No No -Debridement - Subq, 1st 20sq cm Yes Yes Pain Scale: 0-10 Numeric Is Patient Pain Free? Yes Yes WC - Nurse 3 - General Ulcer D/C NN Start: 08/18/24 09:22 Freq: Status: Active Protocol: Activity Type Activity Date Activity User E-sign Co-sign Detail Recorded Client Recorded Date Recorded By Document 08/18/24 09:22 DL [id number] 08/18/24 09:41 DL Document 08/22/24 10:24 DS [id number] 08/22/24 10:34 DS Document 08/25/24 11:55 DL [id number] 08/25/24 11:59 DL Document 08/27/24 12:34 CP [id number] 08/27/24 12:35 CP Document 09/01/24 08:57 KW [id number] 09/01/24 09:16 KW 08/18/24 08/22/24 08/25/24 09:22 10:24 11:55 Vital Signs Temperature (97.8 F-99.1 F) 97 F L 97.7 F L Temperature Source Temporal Temporal Pulse Rate (60-100) 118 H 114 H Pulse Location Monitor Monitor Respiratory Rate (12-18) 22 H 22 H Respiratory rate source Observation Observation Oxygen Delivery Method Blood Pressure (90/60-120/80) 135/83 H 156/90 H Blood Pressure Mean (mm Hg) 100 112 Source Monitor Monitor Position Blood Pressure Location Pain Scale: 0-10 Numeric Is Patient Pain Free? Yes Yes Yes Wound Care Center Nurse 3 #1 R post LE- post-op cluster -Ulcer Cleansing Soap and Water Soap and Water Soap and Water -Foul Odor after Cleansing No No -Primary Dressing Applied Optilok 6.5x10 Optilok 8x12 Optilok 6.5x10 -Other Dressing gentamycin -Primary Dressing Covered/Secured with Dry Gauze, Dry Gauze & Secured with Roll Gauze Tape -Optilok 6.5x10 1 1 -Optilok 8x12 1 Right -Multi-Layered Wrap Application Multi-Layer Multi-Layer Multi-Layer Comp - Right ($ Comp - Right ($ Comp - Right ($ ) ) ) -Tubular Bandage Single Layer -Size of Tubigrip Used Size F -Size F ($) 1 Treatment Response Procedure Procedure Tolerated Well Tolerated Well WC - Visit Discharge Discharge Condition Stable Stable Stable Ambulatory Status Ambulatory Ambulatory Ambulatory Transportation Private Auto Private Auto Transportation Medication Reconcilliation completed & provided to patient/care provider Clinical Summary of Care Provided 08/27/24 09/01/24 12:34 08:57 Vital Signs Temperature (97.8 F-99.1 F) 96.5 F L Temperature Source Temporal Pulse Rate (60-100) 116 H Pulse Location Monitor Respiratory Rate (12-18) 20 H Respiratory rate source Observation Oxygen Delivery Method Room Air Blood Pressure (90/60-120/80) 151/81 H Blood Pressure Mean (mm Hg) 104 Source Monitor Position Sitting Blood Pressure Location Left Arm Pain Scale: 0-10 Numeric Is Patient Pain Free? Yes Yes Wound Care Center Nurse 3 #1 R post LE- post-op cluster -Ulcer Cleansing Soap and Water -Foul Odor after Cleansing No -Primary Dressing Applied Optilok 8x12 Optilok 6.5x10 -Other Dressing gentamycin to ATB ointment periwound -Primary Dressing Covered/Secured with Dry Gauze & Dry Gauze & Roll Gauze, Roll Gauze, Secured with Secured with Tape Tape -Optilok 6.5x10 1 -Optilok 8x12 1 Right -Multi-Layered Wrap Application Multi-Layer Multi-Layer Comp - Right ($ Comp - Right ($ ) ) -Tubular Bandage -Size of Tubigrip Used -Size F ($) Treatment Response Procedure Procedure Tolerated Well Tolerated Well WC - Visit Discharge Discharge Condition Stable Stable Ambulatory Status Ambulatory Ambulatory Transportation Private Auto [place] Auto Medication Reconcilliation completed & No No provided to patient/care provider Clinical Summary of Care Provided Yes Yes Assessment/Plan Assessment/Plan (1) Non-pressure chronic ulcer of unspecified part of 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 All findings were discussed with the patient. All questions were answered to the patient's satisfaction. Excisional debridement down to including subcutaneous tissue of the right posterior calf with a number 3 mm dermal curette without incident. Predebridement measurement was 1.2 x 0.3 x 0.5 cm. Postdebridement measurement is 1.3 x 0.4 x 0.6 cm. Right lower extremities are clean and patted dry. Triple-lumen antibiotic was applied to the full-thickness wound followed by dry sterile dressing and 3M multilayer compression bandage to right lower extremity. We are still waiting for lymphedema pumps to be approved by the patient's insurance. Patient will continue strict blood sugar control. Follow-up at the wound care center with Dr. Lord in 1 week. (2) Lymphedema, not elsewhere classified: CODE(S): I89.0 - Lymphedema, not elsewhere classified (3) Morbidly obese: CODE(S): E66.01 - Morbid (severe) obesity due to excess calories (4) Medical non-compliance: CODE(S): Z91.199 - Patient's noncompliance with other medical treatment and regimen due to unspecified reason
[2024-09-09 09:33] VITALS: BP 179/80; PULSE 114; RESP 21; TEMP 36.5; BMI 62.5
[2024-09-12 09:56] VITALS: BP 141/84; PULSE 109; RESP 18; TEMP 36.4; BMI 62.5
[2024-09-16 10:44] VITALS: BP 156/89; PULSE 107; RESP 18; TEMP 35.9; BMI 62.5
--- NOTE | 2024-09-16 12:45 | PCM.WC.PN ---
History of Present Illness Date of Service: 09/16/24 Chief Complaint: Ulceration right posterior leg History of Wound: Ulceration right posterior leg Subjective Subjective Ms. Rodriguez is a 44-year-old diabetic female send wound care center follow-up evaluation of full-thickness wound to the posterior right calf. Patient states her leg is more swollen today as she has been up and about during the holidays. Patient states that she notices more swelling with the wrap on due to unable to elevate as much possible. She states to strict blood sugar control but does have times of elevation. She denies trauma. Denies constitutional symptoms. No. Plaints at this time. Objective Data Objective Data Vital Signs: Vital Signs Temp Pulse Resp BP O2 Del Method 96.7 F L 107 H 18 156/89 H Room Air 09/16/24 10:44 09/16/24 10:44 09/16/24 10:44 09/16/24 10:44 09/16/24 10:44 Oxygen Delivery Method Room Air Weight: 160.223 kg Body Mass Index (BMI) 62.5 Physical Exam Narrative Vascular: DP and PT pulses palpable. CFT is brisk. Nonpitting edema appreciated to right lower extremity. Erythema to the right posterior calf, improving. Skin temperature gradient is warm to warm from proximal ankles to distal digit with mild focal increase appreciated to the posterior calf. Neurological: Light touch intact. Patient response to painful stimuli. Dermatological: Periwound maceration appreciated to the calf area of the right lower extremity, improving. Full-thickness wound measures 1.4 x 0.4 x 0.6 cm. Wound base is granular. No malodor or drainage. Excisional debridement down to including subcutaneous tissue of the right posterior calf with a number 3 mm dermal curette without incident. Predebridement measurement was 1.3 x 0.3 x 0.5 cm. Postdebridement measurement is 1.4 x 0.4 x 0.6 cm. Musculoskeletal: No pain with calf compression. No pain to palpation full-thickness ulceration right calf. Debridement Note Debridement Note Debridement Free Text: Excisional debridement down to including subcutaneous tissue of the right posterior calf with a number 3 mm dermal curette without incident. Predebridement measurement was 1.3 x 0.3 x 0.5 cm. Postdebridement measurement is 1.4 x 0.4 x 0.6 cm. Post-Debridement Measurements and Additional Note: Post-Debridement Measurements/Treatment WC - Nurse 1 - General Ulcer Assessment Start: 08/18/24 09:22 Freq: Status: Active Protocol: WATSON Activity Type Activity Date Activity User E-sign Co-sign Detail Recorded Client Recorded Date Recorded By Document 08/18/24 09:22 DL [id number] 08/18/24 09:41 DL Document 08/22/24 10:23 DS [id number] 08/22/24 10:24 DS Document 08/25/24 11:55 DL [id number] 08/25/24 11:59 DL Document 08/27/24 12:03 RB [id number] 08/27/24 12:05 RB Document 09/01/24 08:57 KW [id number] 09/01/24 09:16 KW Document 09/03/24 12:14 KW [id number] 09/03/24 12:19 KW Document 09/09/24 09:33 ML [id number] 09/09/24 09:36 ML Document 09/12/24 09:56 KW [id number] 09/12/24 10:22 KW Document 09/16/24 10:44 KW [id number] 09/16/24 10:54 KW 08/18/24 08/22/24 08/25/24 09:22 10:23 11:55 - Today's Visit Information Type of service Nurse-only Nurse-only Nurse-only Visit Visit Visit Arrival Mode Ambulatory Ambulatory Ambulatory Transfer Assistance None None Patient Identification Verified (Name & Yes Yes Yes ) Patient Requires Transmission-Based No No No Precautions Height and Weight Body Mass Index (BMI) 62.5 62.5 62.5 BMI Classification Obese Obese Obese Vital Signs Temperature (97.8 F-99.1 F) 97 F L 96.9 F L 97.7 F L Temperature Source Temporal Temporal Temporal Pulse Rate (60-100) 118 H 113 H 114 H Pulse Location Monitor Monitor Monitor Respiratory Rate (12-18) 22 H 18 22 H Respiratory rate source Observation Observation Observation Oxygen Delivery Method Room Air Blood Pressure (90/60-120/80) 135/83 H 133/76 H 156/90 H Blood Pressure Mean (mm Hg) 100 95 112 Source Monitor Monitor Monitor Position Sitting Blood Pressure Location Left Arm History Since Last Visit- (Skip if this is Patient's initial visit) Have you changed medications since your No No last visit? Any new allergies or adverse reactions No No Had a fall/change in ADL's that may No No increase risk of falls Signs or symptoms of abuse and/or No No neglect since last visit Have you been in the hospital since your No No last visit? Has dressing in place as prescribed Yes Yes Has compression in place as prescribed Yes Yes Has offloadiing in place as prescribed N/A N/A Experienced any changes in pain level or No No management Left Footwear Slipper Right Footwear Slipper Pain Scale: 0-10 Numeric Is Patient Pain Free? Yes Yes Yes 08/27/24 09/01/24 09/03/24 12:03 08:57 12:14 WC - Today's Visit Information Type of service Follow-up Visit Nurse-only Follow-up Visit (Physician/PARKING CASHIER Visit (Physician/PARKING CASHIER ) ) Arrival Mode Ambulatory Ambulatory Ambulatory Transfer Assistance None Patient Identification Verified (Name & Yes Yes Yes ) Patient Requires Transmission-Based No Precautions Height and Weight Body Mass Index (BMI) 62.5 62.5 62.5 BMI Classification Obese Obese Obese Vital Signs Temperature (97.8 F-99.1 F) 97.2 F L 96.5 F L 97.7 F L Temperature Source Temporal Temporal Temporal Pulse Rate (60-100) 116 H 116 H 116 H Pulse Location Monitor Monitor Monitor Respiratory Rate (12-18) 18 20 H 18 Respiratory rate source Observation Observation Observation Oxygen Delivery Method Room Air Room Air Blood Pressure (90/60-120/80) 157/89 H 151/81 H 159/91 H Blood Pressure Mean (mm Hg) 111 104 113 Source Monitor Monitor Monitor Position Sitting Sitting Semi-Fowlers Blood Pressure Location Right Arm Left Arm Left Arm History Since Last Visit- (Skip if this is Patient's initial visit) Have you changed medications since your No No No last visit? Any new allergies or adverse reactions No No No Had a fall/change in ADL's that may No No No increase risk of falls Signs or symptoms of abuse and/or No No No neglect since last visit Have you been in the hospital since your No No No last visit? Has dressing in place as prescribed Yes Yes Yes Has compression in place as prescribed Yes Yes Yes Has offloadiing in place as prescribed No N/A N/A Experienced any changes in pain level or No No No management Left Footwear Regular Shoe Regular Shoe Right Footwear Regular Shoe Regular Shoe Pain Scale: 0-10 Numeric Is Patient Pain Free? Yes Yes Yes 09/09/24 09/12/24 09/16/24 09:33 09:56 10:44 - Today's Visit Information Type of service Nurse-only Nurse-only Follow-up Visit Visit Visit (Physician/PARKING CASHIER ) Arrival Mode Ambulatory Ambulatory Ambulatory Transfer Assistance None Patient Identification Verified (Name & Yes Yes Yes ) Patient Requires Transmission-Based No Precautions Height and Weight Body Mass Index (BMI) 62.5 62.5 62.5 BMI Classification Obese Obese Obese Vital Signs Temperature (97.8 F-99.1 F) 97.7 F L 97.6 F L 96.7 F L Temperature Source Temporal Temporal Temporal Pulse Rate (60-100) 114 H 109 H 107 H Pulse Location Monitor Monitor Monitor Respiratory Rate (12-18) 21 H 18 18 Respiratory rate source Observation Observation Observation Oxygen Delivery Method Room Air Room Air Blood Pressure (90/60-120/80) 179/80 H 141/84 H 156/89 H Blood Pressure Mean (mm Hg) 113 103 111 Source Monitor Monitor Monitor Position Sitting Sitting Sitting Blood Pressure Location Right Forearm Left Forearm Left Forearm History Since Last Visit- (Skip if this is Patient's initial visit) Have you changed medications since your No No No last visit? Any new allergies or adverse reactions No No No Had a fall/change in ADL's that may No No No increase risk of falls Signs or symptoms of abuse and/or No No No neglect since last visit Have you been in the hospital since your No No No last visit? Has dressing in place as prescribed Yes Yes Yes Has compression in place as prescribed Yes Yes Yes Has offloadiing in place as prescribed N/A N/A N/A Experienced any changes in pain level or No No No management Left Footwear Slipper Regular Shoe Right Footwear Slipper Regular Shoe Pain Scale: 0-10 Numeric Is Patient Pain Free? Yes Yes Yes - Nurse 1 - General Ulcer Measurement Start: 08/18/24 09:22 Freq: Status: Active Protocol: Activity Type Activity Date Activity User E-sign Co-sign Detail Recorded Client Recorded Date Recorded By Document 08/18/24 09:41 DL [id number] 08/18/24 09:43 DL Document 08/25/24 11:55 DL [id number] 08/25/24 11:59 DL Document 08/27/24 12:03 RB [id number] 08/27/24 12:05 RB Document 09/03/24 12:14 KW [id number] 09/03/24 12:19 KW Document 09/16/24 10:44 KW [id number] 09/16/24 10:54 KW 08/18/24 08/25/24 08/27/24 09:41 11:55 12:03 Wound Center Nurse 1 #1 R post LE- post-op cluster -Combined with other wound No -Current Size (cm) - Length 9 -Current Size (cm) - Width 9 -Current Size (cm) - Depth 0.1 -Total Square Cm 81 -Tunneling No -Undermining/Tunneling No -Circular Undermining No -Exudate Amt Large Medium Large -Exudate Type Serosanguineous Serosanguineous Serosanguineous -Wound Margin Distinct, Distinct, Outline Outline Attached Attached -Granulation Amt None Present (0 Small (1-33%) Large (67-100%) %) -Granulation Quality [place] -Slough/Fibrin Yes -Necrosis Amt Large (67-100%) Large (67-100%) Medium (34-66%) -Necrotic Tissue Type Adherent Slough Adherent Slough Adherent Slough -Structure Exposed N/A N/A N/A -Texture (Rachele-wound Skin Appearance) Scarring Localized Edema Assessed, ,Scarring Localized Edema -Moisture (Rachele-wound Skin Appearance) Maceration, Maceration Maceration Weeping -Color (Rachele-wound Skin Appearance) No Abnormality No Abnormality Assessed -Temperature (Rachele-wound Skin No Abnormality No Abnormality No Abnormality Appearance) (Pt Warm) (Pt Warm) (Pt Warm) -Tenderness on Palpation (Rachele-wound No No No Skin Appearance) -Ulcer Cleansing Soap and Water Soap and Water Wound Cleanser -Foul Odor after Cleansing No No No -Anesthetic Used 5% Lidocaine Gel Lower Limb Edema Present Yes Right Calf (cm) 66.7 65 Right Ankle (cm) 31.8 31.3 09/03/24 09/16/24 12:14 10:44 Wound Center Nurse 1 #1 R post LE- post-op cluster -Combined with other wound -Current Size (cm) - Length 7.5 1.5 -Current Size (cm) - Width 7.5 0.5 -Current Size (cm) - Depth 0.3 0.6 -Total Square Cm 56.25 0.75 -Tunneling -Undermining/Tunneling -Circular Undermining -Exudate Amt Small Small -Exudate Type Serosanguineous Serosanguineous -Wound Margin Distinct, Distinct, Outline Outline Attached Attached -Granulation Amt Large (67-100%) Large (67-100%) -Granulation Quality [place] -Slough/Fibrin -Necrosis Amt Small (1-33%) -Necrotic Tissue Type Adherent Slough -Structure Exposed -Texture (Rachele-wound Skin Appearance) Assessed Assessed,Rash -Moisture (Rachele-wound Skin Appearance) Assessed, Assessed Maceration -Color (Rachele-wound Skin Appearance) Assessed Assessed, Erythema -Temperature (Rachele-wound Skin No Abnormality No Abnormality Appearance) (Pt Warm) (Pt Warm) -Tenderness on Palpation (Rachele-wound No No Skin Appearance) -Ulcer Cleansing Soap and Water Soap and Water -Foul Odor after Cleansing No No -Anesthetic Used 5% Lidocaine Gel Lower Limb Edema Present Right Calf (cm) 65.2 Right Ankle (cm) 31.5 WC - Nurse 2 - General Ulcer CM Notes Start: 08/18/24 09:22 Freq: Status: Active Protocol: Activity Type Activity Date Activity User E-sign Co-sign Detail Recorded Client Recorded Date Recorded By Document 08/27/24 12:24 [id number] 08/27/24 12:27 Document 09/03/24 12:45 [id number] 09/03/24 12:47 Document 09/16/24 11:17 [id number] 09/16/24 11:18 08/27/24 09/03/24 09/16/24 12:24 12:45 11:17 Wound Center Nurse 2 #1 R post LE- post-op cluster -Time 12:25 12:46 11:17 -Correct Patient Yes Yes Yes -Correct Side, Site, Position Yes Yes Yes -Correct Procedure Yes Yes Yes -Procedure Performed Yes Yes Yes -Type of Procedure Debridement Debridement Debridement -Clinical Debridement Subcutaneous Subcutaneous Subcutaneous -Tissue Removed Subcutaneous Subcutaneous Subcutaneous -Post Debridement (cm) - Length 1.7 1.3 1.4 -Post Debridement (cm) - Width 0.6 0.4 0.4 -Post Debridement (cm) - Depth 0.6 0.6 0.6 -Total Square (Post) (cm) 1.02 0.52 0.56 -Area of Debridement (cm) - Length 1.7 1.3 1.4 -Area of Debridement (cm) - Width 0.6 0.4 0.4 -Total Square (Area) (cm) 1.02 0.52 0.56 -Tunneling No No No -Undermining/Tunneling No No No -Circular Undermining No No No -Wound/Ulcer Outcome Not Healed Not Healed Not Healed -Ulcer Cleansing Rinsed/ Rinsed/ Rinsed/ Irrigated with Irrigated with Irrigated with Saline Saline Saline -Foul Odor after Cleansing No No No -Bioengineered Tissue No No No -Bleeding Controlled with Pressure Pressure Pressure -Treatment Response Procedure Procedure Procedure Tolerated Well Tolerated Well Tolerated Well -Offloading No No No -Debridement - Subq, 1st 20sq cm Yes Yes Yes Pain Scale: 0-10 Numeric Is Patient Pain Free? Yes Yes Yes WC - Nurse 3 - General Ulcer D/C NN Start: 08/18/24 09:22 Freq: Status: Active Protocol: Activity Type Activity Date Activity User E-sign Co-sign Detail Recorded Client Recorded Date Recorded By Document 08/18/24 09:22 DL [id number] 08/18/24 09:41 DL Document 08/22/24 10:24 DS [id number] 08/22/24 10:34 DS Document 08/25/24 11:55 DL [id number] 08/25/24 11:59 DL Document 08/27/24 12:34 CP [id number] 08/27/24 12:35 CP Document 09/01/24 08:57 KW [id number] 09/01/24 09:16 KW Document 09/03/24 13:13 RB [id number] 09/03/24 13:14 RB Document 09/09/24 09:33 ML [id number] 09/09/24 09:36 ML Document 09/12/24 09:56 KW [id number] 09/12/24 10:22 KW Document 09/16/24 11:39 KW [id number] 09/16/24 11:40 KW 08/18/24 08/22/24 08/25/24 09:22 10:24 11:55 Vital Signs Temperature (97.8 F-99.1 F) 97 F L 97.7 F L Temperature Source Temporal Temporal Pulse Rate (60-100) 118 H 114 H Pulse Location Monitor Monitor Respiratory Rate (12-18) 22 H 22 H Respiratory rate source Observation Observation Oxygen Delivery Method Blood Pressure (90/60-120/80) 135/83 H 156/90 H Blood Pressure Mean (mm Hg) 100 112 Source Monitor Monitor Position Blood Pressure Location Pain Scale: 0-10 Numeric Is Patient Pain Free? Yes Yes Yes Wound Care Center Nurse 3 #1 R post LE- post-op cluster -Ulcer Cleansing Soap and Water Soap and Water Soap and Water -Foul Odor after Cleansing No No -Primary Dressing Applied Optilok 6.5x10 Optilok 8x12 Optilok 6.5x10 -Other Dressing gentamycin -Primary Dressing Covered/Secured with Dry Gauze, Dry Gauze & Secured with Roll Gauze Tape -Optilok 6.5x10 1 1 -Optilok 8x12 1 Left -Tubular Bandage -Size of Tubigrip Used -Size F ($) Right -Lotion applied to leg before compression wrap -Multi-Layered Wrap Application Multi-Layer Multi-Layer Multi-Layer Comp - Right ($ Comp - Right ($ Comp - Right ($ ) ) ) -Tubular Bandage Single Layer -Size of Tubigrip Used Size F -Size F ($) 1 Treatment Response Procedure Procedure Tolerated Well Tolerated Well WC - Visit Discharge Discharge Condition Stable Stable Stable Ambulatory Status Ambulatory Ambulatory Ambulatory Transportation Private Auto Private Auto Transportation Medication Reconcilliation completed & provided to patient/care provider Clinical Summary of Care Provided 08/27/24 09/01/24 09/03/24 12:34 08:57 13:13 Vital Signs Temperature (97.8 F-99.1 F) 96.5 F L Temperature Source Temporal Pulse Rate (60-100) 116 H Pulse Location Monitor Respiratory Rate (12-18) 20 H Respiratory rate source Observation Oxygen Delivery Method Room Air Blood Pressure (90/60-120/80) 151/81 H Blood Pressure Mean (mm Hg) 104 Source Monitor Position Sitting Blood Pressure Location Left Arm Pain Scale: 0-10 Numeric Is Patient Pain Free? Yes Yes Yes Wound Care Center Nurse 3 #1 R post LE- post-op cluster -Ulcer Cleansing Soap and Water Wound Cleanser -Foul Odor after Cleansing No -Primary Dressing Applied Optilok 8x12 Optilok 6.5x10 Optilok 6.5x10 -Other Dressing gentamycin to ATB ointment periwound -Primary Dressing Covered/Secured with Dry Gauze & Dry Gauze & Dry Gauze & Roll Gauze, Roll Gauze, Roll Gauze, Secured with Secured with Secured with Tape Tape Tape -Optilok 6.5x10 1 1 -Optilok 8x12 1 Left -Tubular Bandage -Size of Tubigrip Used -Size F ($) Right -Lotion applied to leg before compression wrap -Multi-Layered Wrap Application Multi-Layer Multi-Layer Multi-Layer Comp - Right ($ Comp - Right ($ Comp - Right ($ ) ) ) -Tubular Bandage -Size of Tubigrip Used -Size F ($) Treatment Response Procedure Procedure Procedure Tolerated Well Tolerated Well Tolerated Well WC - Visit Discharge Discharge Condition Stable Stable Stable Ambulatory Status Ambulatory Ambulatory Ambulatory Transportation Private Auto Private Auto Private Auto Medication Reconcilliation completed & No No No provided to patient/care provider Clinical Summary of Care Provided Yes Yes Yes 09/09/24 09/12/24 09/16/24 09:33 09:56 11:39 Vital Signs Temperature (97.8 F-99.1 F) 97.7 F L 97.6 F L Temperature Source Temporal Temporal Pulse Rate (60-100) 114 H 109 H Pulse Location Monitor Monitor Respiratory Rate (12-18) 21 H 18 Respiratory rate source Observation Observation Oxygen Delivery Method Room Air Blood Pressure (90/60-120/80) 179/80 H 141/84 H Blood Pressure Mean (mm Hg) 113 103 Source Monitor Monitor Position Sitting Sitting Blood Pressure Location Right Forearm Left Forearm Pain Scale: 0-10 Numeric Is Patient Pain Free? Yes Yes Yes Wound Care Center Nurse 3 #1 R post LE- post-op cluster -Ulcer Cleansing Soap and Water -Foul Odor after Cleansing -Primary Dressing Applied Optilok 8x12 Optilok 8x12 -Other Dressing SUPERABSORBER antibiotic ointment -Primary Dressing Covered/Secured with -Optilok 6.5x10 -Optilok 8x12 1 1 Left -Tubular Bandage Single Layer Single Layer -Size of Tubigrip Used Size F Size F -Size F ($) 1 1 Right -Lotion applied to leg before Yes compression wrap -Multi-Layered Wrap Application Multi-Layer Multi-Layer Multi-Layer Comp - Right ($ Comp - Right ($ Comp - Right ($ ) ) ) -Tubular Bandage -Size of Tubigrip Used -Size F ($) Treatment Response WC - Visit Discharge Discharge Condition Stable Stable Ambulatory Status Ambulatory Ambulatory Transportation Private Auto Medication Reconcilliation completed & No No provided to patient/care provider Clinical Summary of Care Provided Yes Yes Assessment/Plan Assessment/Plan (1) Non-pressure chronic ulcer of unspecified part of 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 All findings were discussed with the patient. All questions were answered to the patient's satisfaction. Excisional debridement down to including subcutaneous tissue of the right posterior calf with a number 3 mm dermal curette without incident. Predebridement measurement was 1.3 x 0.3 x 0.5 cm. Postdebridement measurement is 1.4 x 0.4 x 0.6 cm. Right lower extremities are clean and patted dry. Triple antibiotic was applied to the full-thickness wound followed by dry sterile dressing and 3M multilayer compression bandage to right lower extremity. We are still waiting for lymphedema pumps to be approved by the patient's insurance. Patient will continue strict blood sugar control. Follow-up at the wound care center with Dr. Lord in 1 week. (2) Lymphedema, not elsewhere classified: CODE(S): I89.0 - Lymphedema, not elsewhere classified (3) Morbidly obese: CODE(S): E66.01 - Morbid (severe) obesity due to excess calories (4) Medical non-compliance: CODE(S): Z91.199 - Patient's noncompliance with other medical treatment and regimen due to unspecified reason
--- NOTE | 2024-09-22 11:36 | WC ---
PHOTO 09/16/24 RIGHT POST LEG
== END 2024-09-16 23:59 | disposition home or self-care (01) ==
LOC: WC 10:30
PROVIDERS: PCP Internal Medicine; Referring Provider Internal Medicine; Visit Provider Podiatrist Foot & Ankle Surgery
DX: L97.212 Non-pressure chronic ulcer of right calf with fat layer exposed (principal); E66.01 Morbid (severe) obesity due to excess calories; Z68.44 Body mass index [BMI] 60.0-69.9, adult; Z79.84 Long term (current) use of oral hypoglycemic drugs; Z79.899 Other long term (current) drug therapy; I89.0 Lymphedema, not elsewhere classified; Z91.199 Patient's noncompliance with other medical treatment and regimen due to unspecified reason
CPT/HCPCS: 11042; 29581

== ENCOUNTER 2024-09-23 14:01 | Outpatient (RCR) | payer MEDICAID, SELFPAY ==
--- NOTE | 2024-09-23 16:09 | WC ---
Patient called in to let me know her that the wraps fell down. She is coming in tomorrow with her brother and we can schedule her for a nurse visit and cancel her nurse for sunday. Patient states she can coban and will rewrap the upper portion of the wrap to help with compression.
== END 2024-10-17 23:59 ==
LOC: NS 14:01
PROVIDERS: PCP Internal Medicine; Referring Provider Podiatrist Foot & Ankle Surgery; Visit Provider Podiatrist Foot & Ankle Surgery
DX: Z71.3 Dietary counseling and surveillance (principal); E11.42 Type 2 diabetes mellitus with diabetic polyneuropathy; E66.01 Morbid (severe) obesity due to excess calories; Z68.44 Body mass index [BMI] 60.0-69.9, adult; L97.912 Non-pressure chronic ulcer of unspecified part of right lower leg with fat layer exposed; Z79.4 Long term (current) use of insulin
CPT/HCPCS: 97803

== ENCOUNTER 2024-10-17 10:00 | Outpatient (RCR) | payer MEDICAID, SELFPAY ==
[2024-09-17 00:23] VITALS: BP 143/85; PULSE 113; RESP 18; TEMP 36.6; BMI 62.5
[2024-09-22 09:24] VITALS: BP 158/85; PULSE 110; RESP 18; TEMP 36.1; BMI 62.5
[2024-09-24 12:12] VITALS: BP 175/87; PULSE 119; RESP 18; TEMP 36; BMI 62.5
[2024-09-26 09:50] VITALS: BP 166/90; PULSE 110; RESP 18; BMI 62.5
[2024-10-01 12:15] VITALS: BP 170/83; PULSE 100; RESP 18; TEMP 36.6; BMI 62.5
--- NOTE | 2024-10-01 13:11 | PCM.WC.PN ---
History of Present Illness Date of Service: 09/16/24 Chief Complaint: Ulceration right posterior leg History of Wound: Ulceration right posterior leg Subjective Subjective Ms. Rodriguez is a 44-year-old diabetic female send wound care center follow-up evaluation of full-thickness wound to the posterior right calf. Patient has not noticed improvement to the right lower extremity after having multiple compression wraps placed. She still has not just restarted her blood glucose lowering medication secondary to seizures. She denies trauma. Denies constitutional symptoms. No other pedal complaints at this time. Objective Data Objective Data Vital Signs: Vital Signs Temp Pulse Resp BP O2 Del Method 97.8 F 100 18 170/83 H Room Air 10/01/24 12:15 10/01/24 12:15 10/01/24 12:15 10/01/24 12:15 09/26/24 09:50 Oxygen Delivery Method Room Air Weight: 160.223 kg Body Mass Index (BMI) 62.5 Physical Exam Narrative Vascular: DP and PT pulses palpable. CFT is brisk. Nonpitting edema appreciated to right lower extremity. Erythema to the right posterior calf, improving. Skin temperature gradient is warm to warm from proximal ankles to distal digit with mild focal increase appreciated to the posterior calf. Neurological: Light touch intact. Patient response to painful stimuli. Dermatological: Periwound maceration appreciated to the calf area of the right lower extremity, improving. Full-thickness wound measures 1.0 x 0.4 x 0.5 cm. Wound base is granular. No malodor or drainage. Excisional debridement down to including subcutaneous tissue of the right posterior calf with a number 3 mm dermal curette without incident. Predebridement measurement was 0.8 x 0.2 x 0.3 cm. Postdebridement measurement is 1.0 x 0.4 x 0.5 cm. Musculoskeletal: No pain with calf compression. No pain to palpation full-thickness ulceration right calf. Const alert, oriented x3 and no apparent distress General Appearance: cooperative Orientation / Consciousness: awake Debridement Note Debridement Note Debridement Free Text: Excisional debridement down to including subcutaneous tissue of the right posterior calf with a number 3 mm dermal curette without incident. Predebridement measurement was 0.8 x 0.2 x 0.3 cm. Postdebridement measurement is 1.0 x 0.4 x 0.5 cm. Post-Debridement Measurements and Additional Note: Post-Debridement Measurements/Treatment WC - Nurse 1 - General Ulcer Assessment Start: 09/22/24 09:24 Freq: Status: Active Protocol: WATSON Activity Type Activity Date Activity User E-sign Co-sign Detail Recorded Client Recorded Date Recorded By Document 09/22/24 09:24 KW [id number] 09/22/24 09:25 KW Document 09/24/24 12:12 KW [id number] 09/24/24 12:13 KW Document 09/26/24 09:50 KW [id number] 09/26/24 09:52 KW Document 10/01/24 12:15 RB [id number] 10/01/24 12:18 RB 09/22/24 09/24/24 09/26/24 09:24 12:12 09:50 WC - Today's Visit Information Type of service Nurse-only Nurse-only Nurse-only Visit Visit Visit Arrival Mode Ambulatory Ambulatory Transfer Assistance Patient Identification Verified (Name & Yes Yes Yes ) Patient Requires Transmission-Based Precautions Height and Weight Body Mass Index (BMI) 62.5 62.5 62.5 BMI Classification Obese Obese Obese Vital Signs Temperature (97.8 F-99.1 F) 96.9 F L 96.8 F L Temperature Source Temporal Temporal Temporal Pulse Rate (60-100) 110 H 119 H 110 H Pulse Location Monitor Monitor Monitor Respiratory Rate (12-18) 18 18 18 Respiratory rate source Observation Observation Observation Oxygen Delivery Method Room Air Room Air Room Air Blood Pressure (90/60-120/80) 158/85 H 175/87 H 166/90 H Blood Pressure Mean (mm Hg) 109 116 115 Source Monitor Monitor Monitor Position Sitting Semi-Fowlers Sitting Blood Pressure Location Left Forearm Left Forearm Right Arm History Since Last Visit- (Skip if this is Patient's initial visit) Have you changed medications since your No No No last visit? Any new allergies or adverse reactions No No No Had a fall/change in ADL's that may No No No increase risk of falls Signs or symptoms of abuse and/or No No No neglect since last visit Have you been in the hospital since your No No No last visit? Has dressing in place as prescribed Yes Yes Yes Has compression in place as prescribed Yes No Yes Has offloadiing in place as prescribed N/A N/A N/A Experienced any changes in pain level or No No No management Left Footwear Regular Shoe Slipper Regular Shoe Right Footwear Regular Shoe Slipper Regular Shoe Pain Scale: 0-10 Numeric Is Patient Pain Free? 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 ) Arrival Mode Ambulatory Transfer Assistance None Patient Identification Verified (Name & Yes ) Patient Requires Transmission-Based No Precautions Height and Weight Body Mass Index (BMI) 62.5 BMI Classification Obese Vital Signs Temperature (97.8 F-99.1 F) 97.8 F Temperature Source Temporal Pulse Rate (60-100) 100 Pulse Location Monitor Respiratory Rate (12-18) 18 Respiratory rate source Observation Oxygen Delivery Method Blood Pressure (90/60-120/80) 170/83 H Blood Pressure Mean (mm Hg) 112 Source Monitor Position Semi-Fowlers Blood Pressure Location Left Arm History Since Last Visit- (Skip if this is Patient's initial visit) Have you changed medications since your No last visit? Any new allergies or adverse reactions No Had a fall/change in ADL's that may No increase risk of falls Signs or symptoms of abuse and/or No neglect since last visit Have you been in the hospital since your No last visit? Has dressing in place as prescribed Yes Has compression in place as prescribed Yes Has offloadiing in place as prescribed N/A Experienced any changes in pain level or No management Left Footwear Slipper Right Footwear Slipper Pain Scale: 0-10 Numeric Is Patient Pain Free? Yes - Nurse 1 - General Ulcer Measurement Start: 09/22/24 09:24 Freq: Status: Active Protocol: Activity Type Activity Date Activity User E-sign Co-sign Detail Recorded Client Recorded Date Recorded By Document 09/24/24 12:27 KW [id number] 09/24/24 12:28 KW Document 10/01/24 12:15 RB [id number] 10/01/24 12:18 RB 09/24/24 10/01/24 12:27 12:15 Wound Center Nurse 1 #1 R post LE- post-op cluster -Combined with other wound No -Current Size (cm) - Length 1 -Current Size (cm) - Width 1 -Current Size (cm) - Depth 0.5 -Total Square Cm 1 -Photo Taken Yes -Tunneling No -Undermining/Tunneling No -Circular Undermining No -Exudate Amt Large -Exudate Type Serosanguineous -Wound Margin Indistinct, Non -Visible -Granulation Amt Large (67-100%) -Granulation Quality Strang -Slough/Fibrin Yes -Necrosis Amt Medium (34-66%) -Necrotic Tissue Type Adherent Slough -Structure Exposed N/A -Texture (Rachele-wound Skin Appearance) Assessed, Excoriation, Localized Edema -Moisture (Rachele-wound Skin Appearance) Assessed -Color (Rachele-wound Skin Appearance) Erythema -Temperature (Rachele-wound Skin No Abnormality Appearance) (Pt Warm) -Tenderness on Palpation (Rachele-wound No Skin Appearance) -Ulcer Cleansing Wound Cleanser -Foul Odor after Cleansing Yes -Anesthetic Used 5% Lidocaine Gel Lower Limb Edema Present Yes Right Calf (cm) 67 62 Right Ankle (cm) 34 31 Left Calf (cm) 63 Left Ankle (cm) 34 PANCHITO - Nurse 2 - General Ulcer CM Notes Start: 09/22/24 09:24 Freq: Status: Active Protocol: Activity Type Activity Date Activity User E-sign Co-sign Detail Recorded Client Recorded Date Recorded By Document 10/01/24 12:46 RUBA [id number] 10/01/24 12:47 RUBA 10/01/24 12:46 Wound Center Nurse 2 #1 R post LE- post-op cluster -Time 12:46 -Correct Patient Yes -Correct Side, Site, Position Yes -Correct Procedure Yes -Procedure Performed Yes -Type of Procedure Debridement -Clinical Debridement Subcutaneous -Tissue Removed Subcutaneous -Post Debridement (cm) - Length 1.0 -Post Debridement (cm) - Width 0.4 -Post Debridement (cm) - Depth 0.5 -Total Square (Post) (cm) 0.40 -Area of Debridement (cm) - Length 1.0 -Area of Debridement (cm) - Width 0.4 -Total Square (Area) (cm) 0.40 -Tunneling No -Undermining/Tunneling No -Circular Undermining No -Wound/Ulcer Outcome Not Healed -Foul Odor after Cleansing No -Bioengineered Tissue No -Bleeding Controlled with Pressure -Offloading No -Debridement - Subq, 1st 20sq cm Yes Pain Scale: 0-10 Numeric Is Patient Pain Free? Yes - Nurse 3 - General Ulcer D/C NN Start: 09/22/24 09:24 Freq: Status: Active Protocol: Activity Type Activity Date Activity User E-sign Co-sign Detail Recorded Client Recorded Date Recorded By Document 09/22/24 09:24 KW [id number] 09/22/24 09:25 KW Document 09/24/24 12:12 KW [id number] 09/24/24 12:13 KW Document 09/26/24 09:50 KW [id number] 09/26/24 09:52 KW 09/22/24 09/24/24 09/26/24 09:24 12:12 09:50 Vital Signs Temperature (97.8 F-99.1 F) 96.9 F L 96.8 F L Temperature Source Temporal Temporal Temporal Pulse Rate (60-100) 110 H 119 H 110 H Pulse Location Monitor Monitor Monitor Respiratory Rate (12-18) 18 18 18 Respiratory rate source Observation Observation Observation Oxygen Delivery Method Room Air Room Air Room Air Blood Pressure (90/60-120/80) 158/85 H 175/87 H 166/90 H Blood Pressure Mean (mm Hg) 109 116 115 Source Monitor Monitor Monitor Position Sitting Semi-Fowlers Sitting Blood Pressure Location Left Forearm Left Forearm Right Arm Pain Scale: 0-10 Numeric Is Patient Pain Free? Yes Yes Yes Wound Care Center Nurse 3 #1 R post LE- post-op cluster -Ulcer Cleansing Soap and Water Soap and Water Soap and Water -Primary Dressing Applied Optilok 6.5x10 Optilok 6.5x10 -Primary Dressing Covered/Secured with Dry Gauze & Dry Gauze & Dry Gauze & Roll Gauze, Roll Gauze, Roll Gauze, Secured with Secured with Secured with Tape Tape Tape -Optilok 6.5x10 1 1 Left -Tubular Bandage Single Layer -Size of Tubigrip Used Size F -Size F ($) 1 Right -Multi-Layered Wrap Application Multi-Layer Multi-Layer Multi-Layer Comp - Right ($ Comp - Right ($ Comp - Right ($ ) ) ) WC - Visit Discharge Discharge Condition Stable Stable Stable Ambulatory Status Ambulatory Ambulatory Ambulatory Transportation Private Auto Private Auto Medication Reconcilliation completed & No No No provided to patient/care provider Clinical Summary of Care Provided Yes Yes Yes Assessment/Plan Assessment/Plan (1) Non-pressure chronic ulcer of unspecified part of 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 All findings were discussed with the patient. All questions were answered to the patient's satisfaction. Excisional debridement down to including subcutaneous tissue of the right posterior calf with a number 3 mm dermal curette without incident. Predebridement measurement was 0.8 x 0.2 x 0.3 cm. Postdebridement measurement is 1.0 x 0.4 x 0.5 cm. Right lower extremities are clean and patted dry. Triple antibiotic was applied to the full-thickness wound followed by dry sterile dressing and 3M multilayer compression bandage to right lower extremity. We are still waiting for lymphedema pumps to be approved by the patient's insurance. Patient will continue strict blood sugar control. Patient did follow-up with vascular surgery and recommended no intervention at this time and to continue with the lymphedema pumps. Patient will follow-up with nursing visits and follow-up with the wound care center with Dr. Lord in 3 weeks. (2) Lymphedema, not elsewhere classified: CODE(S): I89.0 - Lymphedema, not elsewhere classified (3) Morbidly obese: CODE(S): E66.01 - Morbid (severe) obesity due to excess calories
--- NOTE | 2024-10-02 08:51 | WC ---
PHOTO 10/01/24 RLE POST
[2024-10-08 13:02] VITALS: BP 141/93; PULSE 99; RESP 18; TEMP 36.3; BMI 62.5
[2024-10-17 11:19] VITALS: BP 161/89; PULSE 105; RESP 18; TEMP 35.9; BMI 62.5
== END 2024-10-17 23:59 | disposition home or self-care (01) ==
LOC: WC 10:00
PROVIDERS: PCP Internal Medicine; Referring Provider Internal Medicine; Visit Provider Podiatrist Foot & Ankle Surgery
DX: E11.622 Type 2 diabetes mellitus with other skin ulcer (principal); L97.212 Non-pressure chronic ulcer of right calf with fat layer exposed; E66.01 Morbid (severe) obesity due to excess calories; Z68.44 Body mass index [BMI] 60.0-69.9, adult; I89.0 Lymphedema, not elsewhere classified; R60.0 Localized edema; Z79.84 Long term (current) use of oral hypoglycemic drugs; Z79.899 Other long term (current) drug therapy
CPT/HCPCS: 11042; 29581

== ENCOUNTER 2024-11-12 12:30 | Outpatient (RCR) | payer MEDICAID, SELFPAY ==
[2024-10-18 01:55] VITALS: BP 161/89; PULSE 105; RESP 18; TEMP 35.9; BMI 62.5
[2024-10-22 12:27] VITALS: BP 156/91; PULSE 99; RESP 20; TEMP 35.7; BMI 62.5
--- NOTE | 2024-10-22 14:26 | PN.PCM_ITS ---
History of Present Illness Date of Service: 10/22/24 Chief Complaint: Ulceration right posterior leg History of Wound: Ulceration right posterior leg Progress of Wound: Right posterior leg wound is now healed. Subjective Subjective Ms. Rodriguez is a 44-year-old diabetic female presented wound care center today follow-up evaluation of right calf full-thickness wound secondary to swelling and fissuring around the calf area. Patient has been returning to the wound care center for nursing visits for multilayer compression wrap exchanges. Most recent A1c is 9.2% down from 11%. She is continuing to watch her blood sugar. She denies any pain to the right leg. Denies trauma. Denies constitutional symptoms. No other pedal complaints at this time. Objective Data Objective Data Vital Signs: Vital Signs Temp Pulse Resp BP 96.2 F L 99 20 H 156/91 H 10/22/24 12:27 10/22/24 12:27 10/22/24 12:27 10/22/24 12:27 Weight: 160.223 kg Body Mass Index (BMI) 62.5 Physical Exam Narrative Vascular: DP and PT pulses palpable. CFT is brisk. Nonpitting edema appreciated to right lower extremity. No erythema. Skin temperature gradient is warm to warm from proximal ankles to distal digit, no focal increase appreciated. Neurological: Light touch intact. Patient response to painful stimuli. Dermatological: Evidence of improved periwound maceration to the right posterior calf area. Full-thickness wound is now healed. Musculoskeletal: No pain with calf compression. No pain to palpation full-th ickness ulceration right calf. Debridement Note Debridement Note Post-Debridement Measurements and Additional Note: Post-Debridement Measurements/Treatment - Nurse 1 - General Ulcer Assessment Start: 10/22/24 12:27 Freq: Status: Active Protocol: WC.LOWEXT Activity Type Activity Date Activity User E-sign Co-sign Detail Recorded Client Recorded Date Recorded By Document 10/22/24 12:27 [email or web address] [id number] 10/22/24 12:34 CP 10/22/24 12:27 - Today's Visit Information Type of service Follow-up Visit (Physician/CHUTE FEEDER ) Arrival Mode Walker Patient Identification Verified (Name & Yes ) Height and Weight Body Mass Index (BMI) 62.5 BMI Classification Obese Vital Signs Temperature (97.8 F-99.1 F) 96.2 F L Temperature Source Temporal Pulse Rate (60-100) 99 Pulse Location Monitor Respiratory Rate (12-18) 20 H Blood Pressure (90/60-120/80) 156/91 H Blood Pressure Mean (mm Hg) 112 Source Monitor Position Sitting Blood Pressure Location Left Arm History Since Last Visit- (Skip if this is Patient's initial visit) Have you changed medications since your No last visit? Any new allergies or adverse reactions No Had a fall/change in ADL's that may No increase risk of falls Signs or symptoms of abuse and/or No neglect since last visit Have you been in the hospital since your No last visit? Has dressing in place as prescribed Yes Has compression in place as prescribed Yes Has offloadiing in place as prescribed N/A Pain Scale: 0-10 Numeric Is Patient Pain Free? No WC - Nurse 1 - General Ulcer Measurement Start: 10/22/24 12:27 Freq: Status: Active Protocol: Activity Type Activity Date Activity User E-sign Co-sign Detail Recorded Client Recorded Date Recorded By Document 10/22/24 12:27 CP [id number] 10/22/24 12:34 CP 10/22/24 12:27 Wound Center Nurse 1 #1 R post LE- post-op cluster -Current Size (cm) - Length 0.1 -Current Size (cm) - Width 0.1 -Current Size (cm) - Depth 0.1 -Total Square Cm 0.01 -Epithelialization Large 67-100% -Exudate Amt Small -Exudate Type Serosanguineous -Granulation Amt Large (67-100%) -Granulation Quality [place] -Temperature (Rachele-wound Skin No Abnormality Appearance) (Pt Warm) -Ulcer Cleansing Rinsed/ Irrigated with Saline -Foul Odor after Cleansing No Right Calf (cm) 66 Right Ankle (cm) 32 WC - Nurse 3 - General Ulcer D/C NN Start: 10/22/24 12:27 Freq: Status: Active Protocol: Activity Type Activity Date Activity User E-sign Co-sign Detail Recorded Client Recorded Date Recorded By Document 10/22/24 13:27 ML [id number] 10/22/24 13:29 ML 10/22/24 13:27 Wound Care Center Nurse 3 #1 R post LE- post-op cluster -Ulcer Cleansing Rinsed/ Irrigated with Saline -Other Dressing small superabsorb Right -Multi-Layered Wrap Application Multi-Layer Comp - Right ($ ) Pain Scale: 0-10 Numeric Is Patient Pain Free? 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 All findings were discussed with the patient. All questions were answered to the patient's satisfaction. The patient's full-thickness wound to the right posterior calf is now healed. The patient will continue to wear the multilayer compression bandage to follow- up with nursing visits weekly for dressing exchange. Educated patient to continue strict blood sugar control. We are looking into organizations to see if they can help with a custom CircAid for the patient's right lower extremity. Follow-up at the wound care center with Dr. Lord in 3 week. (2) Lymphedema, not elsewhere classified: CODE(S): I89.0 - Lymphedema, not elsewhere classified
[2024-10-29 12:29] VITALS: BP 156/78; PULSE 113; RESP 18; TEMP 36.5; BMI 62.5
[2024-11-05 12:21] VITALS: BP 134/82; PULSE 100; RESP 18; TEMP 35.9; BMI 62.5
--- NOTE | 2024-11-10 16:43 | WC ---
RECEIVED TC FROM PT. STATES HER INSURANCE APPROVED HER LYMPHEDEMA PUMPS. THEY WILL BE DELIVERED TOMORROW AND THE NEXT DAY A REP WILL BE COMING TO INSTRUCT ON USE. WILL UPDATE CM.
[2024-11-12 12:26] VITALS: BP 152/86; PULSE 103; RESP 18; TEMP 36.4; BMI 62.5
== END 2024-11-14 23:59 | disposition home or self-care (01) ==
LOC: WC 12:30
PROVIDERS: PCP Internal Medicine; Referring Provider Internal Medicine; Visit Provider Podiatrist Foot & Ankle Surgery
DX: Z09 Encounter for follow-up examination after completed treatment for conditions other than malignant neoplasm (principal); I89.0 Lymphedema, not elsewhere classified; R60.0 Localized edema; Z79.84 Long term (current) use of oral hypoglycemic drugs; Z79.899 Other long term (current) drug therapy
CPT/HCPCS: 29581; 99213; G0463

== ENCOUNTER 2024-12-03 10:29 | Outpatient (RCR) | payer MEDICAID, SELFPAY | END 2024-12-15 23:59 | LOC: NS 10:29 | PROVIDERS: PCP Internal Medicine; Referring Provider Podiatrist Foot & Ankle Surgery; Visit Provider Podiatrist Foot & Ankle Surgery | DX: Z71.3 Dietary counseling and surveillance (principal); E66.01 Morbid (severe) obesity due to excess calories; E11.42 Type 2 diabetes mellitus with diabetic polyneuropathy; Z68.44 Body mass index [BMI] 60.0-69.9, adult; E11.628 Type 2 diabetes mellitus with other skin complications; L97.812 Non-pressure chronic ulcer of other part of right lower leg with fat layer exposed; Z79.4 Long term (current) use of insulin | CPT/HCPCS: 97803 ==

== ENCOUNTER 2024-12-10 10:15 | Outpatient (RCR) | payer MEDICAID, SELFPAY ==
[2024-11-15 02:15] VITALS: BP 152/86; PULSE 103; RESP 18; TEMP 36.4; BMI 62.5
[2024-11-19 11:49] VITALS: BP 142/99; PULSE 111; RESP 18; TEMP 36.6; BMI 62.5
--- NOTE | 2024-11-19 14:12 | PN.PCM_ITS ---
History of Present Illness Date of Service: 11/19/24 Chief Complaint: Ulceration right posterior leg History of Wound: Ulceration right posterior leg Progress of Wound: Healed right calf ulcer Subjective Subjective Ms. Rodriguez is a 44-year-old diabetic female presenting the wound care center today for follow-up evaluation of full-thickness wound to the posterior aspect of the right calf. Patient wound is healed. She is pumping with intermittent pneumatic pumps 2 times per day. She is wearing compression whenever she is ambulatory. Her blood sugars well-controlled. She denies any trauma or open wounds. Denies constitutional symptoms. No other pedal complaints at this time. Objective Data Objective Data Vital Signs: Vital Signs Temp Pulse Resp BP O2 Del Method 98 F 111 H 18 142/99 H Room Air 11/19/24 11:49 11/19/24 11:49 11/19/24 11:49 11/19/24 11:49 11/19/24 11:49 Oxygen Delivery Method Room Air Weight: 160.223 kg Body Mass Index (BMI) 62.5 Physical Exam Narrative Vascular: DP and PT pulses palpable. CFT is brisk. Nonpitting edema appreciated to right lower extremity. No erythema. Skin temperature gradient is warm to warm from proximal ankles to distal digit, no focal increase appreciated. Neurological: Light touch intact. Patient response to painful stimuli. Dermatological: Evidence of improved periwound maceration to the right posterior calf area. Full-thickness wound is now healed. Musculoskeletal: No pain with calf compression. No pain to palpation full- thickness ulceration right calf. Right: Calf circumference is 4 cm, ankle circumference 30.5 cm length of the right lower extremity 36 cm. Left: Calf circumference 59.7 cm, ankle circumference 32.4 cm, length of left lower extremity 36.0 cm. 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 ) Arrival Mode Ambulatory Accompanied by self Patient Identification Verified (Name & Yes ) Safety Precautions Fall Prevention Height and Weight Body Mass Index (BMI) 62.5 BMI Classification Obese Vital Signs Temperature (97.8 F-99.1 F) 98 F Temperature Source Temporal Pulse Rate (60-100) 111 H Pulse Location Monitor Respiratory Rate (12-18) 18 Respiratory rate source Observation Oxygen Delivery Method Room Air Blood Pressure (90/60-120/80) 142/99 H Blood Pressure Mean (mm Hg) 113 Source Monitor Position Sitting Blood Pressure Location Left Arm History Since Last Visit- (Skip if this is Patient's initial visit) Has dressing in place as prescribed Yes Has compression in place as prescribed Yes Has offloadiing in place as prescribed Yes Experienced any changes in pain level or Yes management Left Footwear Regular Shoe Right Footwear Regular Shoe Pain Scale: 0-10 Numeric Is Patient Pain Free? Yes WC - Nurse 1 - General Ulcer Measurement Start: 11/18/24 15:28 Freq: Status: Active Protocol: Activity Type Activity Date Activity User E-sign Co-sign Detail Recorded Client Recorded Date Recorded By Document 11/19/24 11:49 MT [id number] 11/19/24 11:51 MT Edit Result 11/19/24 11:49 MT (1) [id number] 11/19/24 11:55 MT (1) Right Calf (cm) 65 => 64 11/19/24 11:49 Wound Center Nurse 1 Right Calf (cm) 64 Right Ankle (cm) 30.5 Left Calf (cm) 59.7 Left Ankle (cm) 32.6 WC - Nurse 2 - General Ulcer CM Notes Start: 11/18/24 15:28 Freq: Status: Active Protocol: Activity Type Activity Date Activity User E-sign Co-sign Detail Recorded Client Recorded Date Recorded By Document 11/19/24 12:16 JF [id number] 11/19/24 12:16 JF 11/19/24 12:16 Pain Scale: 0-10 Numeric Is Patient Pain Free? Yes - Nurse 3 - General Ulcer D/C NN Start: 11/18/24 15:28 Freq: Status: Active Protocol: Activity Type Activity Date Activity User E-sign Co-sign Detail Recorded Client Recorded Date Recorded By Document 11/19/24 12:26 GM [id number] 11/19/24 12:26 GM 11/19/24 12:26 Wound Care Center Nurse 3 Right Lower Leg -Lotion applied to leg before Yes compression wrap -Multi-Layered Wrap Application Multi-Layer Comp - Right ($ ) -Multi-Layer Compression Right (Qty 1 applied) Pain Scale: 0-10 Numeric Is Patient Pain Free? 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 All findings were discussed with the patient. All questions were answered to the patient satisfaction. The patient is showing healing of the full-thickness wound to the right calf with stable surrounding skin. There is no open wound or lesion at this time. The patient will be dressed with a 3M layer multilayer compression bandage. She will follow-up weekly for nursing visits. She will continue to use her pneumatic pumps whenever she is sitting at home. Right: Calf circumference is 4 cm, ankle circumference 30.5 cm length of the right lower extremity 36 cm. Left: Calf circumference 59.7 cm, ankle circumference 32.4 cm, length of left lower extremity 36.0 cm. She will continue strict blood sugar control. She is very grateful for care. Patient will follow-up with Dr. Lord at the wound care center in 3 week. (2) Lymphedema, not elsewhere classified: CODE(S): I89.0 - Lymphedema, not elsewhere classified
[2024-11-26 09:29] VITALS: BP 157/85; PULSE 109; RESP 22; TEMP 36.1; BMI 62.5
[2024-12-03 10:07] VITALS: BP 178/99; PULSE 111; RESP 18; TEMP 36.2; BMI 62.5
[2024-12-10 10:09] VITALS: BP 139/90; PULSE 107; RESP 16; TEMP 36.6; BMI 62.5
--- NOTE | 2024-12-10 14:09 | PCM.WC.PN ---
History of Present Illness Date of Service: 12/10/24 Chief Complaint: Ulceration right posterior leg History of Wound: Ulceration right posterior leg Progress of Wound: Healed right calf ulcer Subjective Subjective Ms. Rodriguez is a 44-year-old diabetic female presented wound care center today for follow-up evaluation of full-thickness wound to the posterior right calf area. Patient has been compliant with multilayer compression bandage and pumping at home. She states her blood sugars well-controlled. She does not smoke or vape anymore at this time. Her wound is now healed. Denies trauma. Denies constitutional symptoms. No other pedal complaints at this time. Objective Data Objective Data Vital Signs: Vital Signs Temp Pulse Resp BP O2 Del Method 97.8 F 107 H 16 139/90 H Room Air 12/10/24 10:12/10/24 10:12/10/24 10:12/10/24 10:11/19/24 11:49 Oxygen Delivery Method Room Air Weight: 160.223 kg Body Mass Index (BMI) 62.5 Physical Exam Narrative Vascular: DP and PT pulses palpable. CFT is brisk. Nonpitting edema appreciated to right lower extremity. No erythema. Skin temperature gradient is warm to warm from proximal ankles to distal digit, no focal increase appreciated. Neurological: Light touch intact. Patient response to painful stimuli. Dermatological: Full-thickness wound to right posterior calf is now healed. No periwound maceration. Musculoskeletal: No pain with calf compression. No pain to palpation full-thickness ulceration right calf. Right: Calf circumference is 4 cm, ankle circumference 30.5 cm length of the right lower extremity 36 cm. Left: Calf circumference 59.7 cm, ankle circumference 32.4 cm, length of left lower extremity 36.0 cm. Debridement Note Debridement Note Post-Debridement Measurements and Additional Note: Post-Debridement Measurements/Treatment WC - Nurse 1 - General Ulcer Assessment Start: 11/18/24 15:28 Freq: Status: Active Protocol: WATSON Activity Type Activity Date Activity User E-sign Co-sign Detail Recorded Client Recorded Date Recorded By Document 11/19/24 11:49 MT [id number] 11/19/24 11:51 MT Document 11/26/24 09:29 DL [id number] 11/26/24 09:41 DL Document 12/03/24 10:07 RB [id number] 12/03/24 10:10 RB Document 12/10/24 10:09 ML [id number] 12/10/24 10:17 ML 11/19/24 11/26/24 12/03/24 11:49 09:29 10:07 - Today's Visit Information Type of service Follow-up Visit Nurse-only Nurse-only (Physician/LOCATION WORKER Visit Visit ) Arrival Mode Ambulatory Ambulatory Ambulatory Transfer Assistance None None Accompanied by self Patient Identification Verified (Name & Yes Yes Yes ) Patient Requires Transmission-Based No No Precautions Safety Precautions Fall Prevention Height and Weight Body Mass Index (BMI) 62.5 62.5 62.5 BMI Classification Obese Obese Obese Vital Signs Temperature (97.8 F-99.1 F) 98 F 96.9 F L 97.1 F L Temperature Source Temporal Temporal Temporal Pulse Rate (60-100) 111 H 109 H 111 H Pulse Location Monitor Monitor Monitor Respiratory Rate (12-18) 18 22 H 18 Respiratory rate source Observation Observation Observation Oxygen Delivery Method Room Air Blood Pressure (90/60-120/80) 142/99 H 157/85 H 178/99 H Blood Pressure Mean (mm Hg) 113 109 125 Source Monitor Monitor Monitor Position Sitting Semi-Fowlers Blood Pressure Location Left Arm Left Arm History Since Last Visit- (Skip if this is Patient's initial visit) Have you changed medications since your No No last visit? Any new allergies or adverse reactions No No Had a fall/change in ADL's that may No No increase risk of falls Signs or symptoms of abuse and/or No No neglect since last visit Have you been in the hospital since your No No last visit? Has dressing in place as prescribed Yes Yes Yes Has compression in place as prescribed Yes Yes Yes Has offloadiing in place as prescribed Yes N/A N/A Experienced any changes in pain level or Yes No No management Left Footwear Regular Shoe Regular Shoe Right Footwear Regular Shoe Regular Shoe Pain Scale: 0-10 Numeric Is Patient Pain Free? Yes Yes Yes 12/10/24 10:09 - Today's Visit Information Type of service Follow-up Visit (Physician/LOCATION WORKER ) Arrival Mode Ambulatory Transfer Assistance None Accompanied by Patient Identification Verified (Name & Yes ) Patient Requires Transmission-Based No Precautions Safety Precautions Height and Weight Body Mass Index (BMI) 62.5 BMI Classification Obese Vital Signs Temperature (97.8 F-99.1 F) 97.8 F Temperature Source Temporal Pulse Rate (60-100) 107 H Pulse Location Monitor Respiratory Rate (12-18) 16 Respiratory rate source Observation Oxygen Delivery Method Blood Pressure (90/60-120/80) 139/90 H Blood Pressure Mean (mm Hg) 106 Source Monitor Position Sitting Blood Pressure Location Left Forearm History Since Last Visit- (Skip if this is Patient's initial visit) Have you changed medications since your No last visit? Any new allergies or adverse reactions No Had a fall/change in ADL's that may No increase risk of falls Signs or symptoms of abuse and/or No neglect since last visit Have you been in the hospital since your No last visit? Has dressing in place as prescribed No Has compression in place as prescribed No Has offloadiing in place as prescribed N/A Experienced any changes in pain level or No management Left Footwear Right Footwear Pain Scale: 0-10 Numeric Is Patient Pain Free? Yes WC - Nurse 1 - General Ulcer Measurement Start: 11/18/24 15:28 Freq: Status: Active Protocol: Activity Type Activity Date Activity User E-sign Co-sign Detail Recorded Client Recorded Date Recorded By Document 11/19/24 11:49 MT [id number] 11/19/24 11:51 MT Edit Result 11/19/24 11:49 MT (1) [id number] 11/19/24 11:55 MT Document 11/26/24 09:29 DL [id number] 11/26/24 09:41 DL Document 12/03/24 10:07 RB [id number] 12/03/24 10:10 RB Document 12/10/24 10:09 ML [id number] 12/10/24 10:17 ML (1) Right Calf (cm) 65 => 64 11/19/24 11/26/24 12/03/24 11:49 09:29 10:07 Wound Center Nurse 1 Lower Limb Edema Present Yes Right Calf (cm) 64 61 62 Right Ankle (cm) 30.5 28.6 31.5 Left Calf (cm) 59.7 Left Ankle (cm) 32.6 12/10/24 10:09 Wound Center Nurse 1 Lower Limb Edema Present Right Calf (cm) 64.5 Right Ankle (cm) 31.5 Left Calf (cm) Left Ankle (cm) WC - Nurse 2 - General Ulcer CM Notes Start: 11/18/24 15:28 Freq: Status: Active Protocol: Activity Type Activity Date Activity User E-sign Co-sign Detail Recorded Client Recorded Date Recorded By Document 11/19/24 12:16 JF [id number] 11/19/24 12:16 JF Document 12/10/24 10:50 JF [id number] 12/10/24 10:51 JF 11/19/24 12/10/24 12:16 10:50 Pain Scale: 0-10 Numeric Is Patient Pain Free? Yes Yes - Nurse 3 - General Ulcer D/C NN Start: 11/18/24 15:28 Freq: Status: Active Protocol: Activity Type Activity Date Activity User E-sign Co-sign Detail Recorded Client Recorded Date Recorded By Document 11/19/24 12:26 GM [id number] 11/19/24 12:26 GM Document 11/26/24 09:29 DL [id number] 11/26/24 09:41 DL Document 12/03/24 10:07 RB [id number] 12/03/24 10:10 RB Document 12/10/24 11:08 KW [id number] 12/10/24 11:08 KW 11/19/24 11/26/24 12/03/24 12:26 09:29 10:07 Wound Care Center Nurse 3 Right Lower Leg -Lotion applied to leg before Yes Yes compression wrap -Multi-Layered Wrap Application Multi-Layer Multi-Layer Multi-Layer Comp - Right ($ Comp - Right ($ Comp - Right ($ ) ) ) -Tubular Bandage -Size of Tubigrip Used -Size F ($) -Multi-Layer Compression Right (Qty 1 1 1 applied) Treatment Response Procedure Procedure Tolerated Well Tolerated Well Pain Scale: 0-10 Numeric Is Patient Pain Free? Yes Yes Yes - Visit Discharge Discharge Condition Stable Stable Stable Ambulatory Status Ambulatory Ambulatory Ambulatory Transportation Private Auto Private Auto Private Auto Medication Reconcilliation completed & No provided to patient/care provider Clinical Summary of Care Provided Yes Notes: abd pad around ankle for crease in ankle , abd RLE posterior 12/10/24 11:08 Wound Care Center Nurse 3 Right Lower Leg -Lotion applied to leg before compression wrap -Multi-Layered Wrap Application -Tubular Bandage Double Layer -Size of Tubigrip Used Size F -Size F ($) 2 -Multi-Layer Compression Right (Qty applied) Treatment Response Pain Scale: 0-10 Numeric Is Patient Pain Free? Yes WC - Visit Discharge Discharge Condition Stable Ambulatory Status Ambulatory Transportation Private Auto Medication Reconcilliation completed & No provided to patient/care provider Clinical Summary of Care Provided Yes Notes: Assessment/Plan Assessment/Plan (1) Non-pressure chronic ulcer of unspecified part of 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 All findings were discussed with the patient. All questions were answered to the patient satisfaction. At this time the patient's full-thickness wound in the right posterior calf is now healed. Encouraged the patient continue to wear double layer Tubigrip until she can get her multilayer compression CircAid. She was also encouraged to continue to pump up to 3 times or more per day which she is understanding of. She is to continue strict blood sugar control. At this time the patient will be discharged from the wound care center to follow-up as needed. She left the office pleased the visit. (2) Lymphedema, not elsewhere classified: CODE(S): I89.0 - Lymphedema, not elsewhere classified
--- NOTE | 2024-12-10 15:13 | WC ---
PHOTO 12/10/24 EDEMA
== END 2024-12-15 23:59 | disposition home or self-care (01) ==
LOC: WC 10:15
PROVIDERS: PCP Internal Medicine; Referring Provider Internal Medicine; Visit Provider Podiatrist Foot & Ankle Surgery
DX: Z09 Encounter for follow-up examination after completed treatment for conditions other than malignant neoplasm (principal); E66.01 Morbid (severe) obesity due to excess calories; Z68.44 Body mass index [BMI] 60.0-69.9, adult; E11.42 Type 2 diabetes mellitus with diabetic polyneuropathy; Z71.3 Dietary counseling and surveillance; I89.0 Lymphedema, not elsewhere classified; Z79.84 Long term (current) use of oral hypoglycemic drugs; Z79.899 Other long term (current) drug therapy
CPT/HCPCS: 29581; 97803; 99213; G0463

== ENCOUNTER 2024-12-15 11:45 | Emergency (ER) | payer MEDICAID, SELFPAY ==
[2024-12-15 11:45] VITALS: BP 139/83; PULSE 107; RESP 20; TEMP 36.7; O2SAT 100
[2024-12-15 11:48] VITALS: BMI 66.6
--- NOTE | 2024-12-15 12:39 | RAD_ITS ---
PROCEDURE: LUMBAR SPINE 2 OR 3 VIEWS 12/15/2024 REASON FOR EXAM: PAIN TECHNIQUE: 2 view(s) of the lumbar spine COMPARISON: None. FINDINGS: Vertebrae: Vertebral body heights are maintained. Transverse and spinous processes appear intact but are not highly visible. Discs: Multilevel degenerative loss of disc height. Alignment: AP alignment grossly maintained. Other: RAD/Lumbar Spine 2 or 3 Views IMPRESSION: No acute process detected. Reading Location: [facility]
--- NOTE | 2024-12-15 12:41 | ED.VIS.BACK ---
HPI History of Present Illness Chief Complaint: Back Informant: patient Narrative Narrative: 44-year-old male presenting with back pain gradual in onset for the past week or so. All the way across her low back, no radiation into her legs, no bowel or bladder dysfunction, no perineal paresthesias/anesthesia. Denies any injury, overuse, repetitive movements that she can remember. She states she has a history of low back pain that is chronic and she associates with her degenerative disc disease, sometimes with and sometimes without sciatica, and she states she started with that sciatica pain at the beginning of this past 1 or 2 weeks ago, and was prescribed some prednisone which took the sciatica away but now this pain is severe and unlike her chronic pain. No abdominal pain with this, fevers, chills, or other systemic symptoms. Hurts more to move and better to rest. States she has chronic asymmetric lymphedema worse on the right leg, uses compression stockings states that she will need them for life, no changes there. History of wounds that are not currently present everything healed. [facility] Medical History Open wound History of steroid therapy Diabetes Easy bruising Restless legs Migraine headache Wears glasses Cracked tooth Difficulty chewing GERD (gastroesophageal reflux disease) Electronic cigarette use CPAP (continuous positive airway pressure) dependence Shortness of breath on exertion History of stress test Anxiety Sleep apnea COPD (chronic obstructive pulmonary disease) Asthma Obesity Diabetes Bipolar 1 disorder Home Medications ?Medication ?Instructions ?Recorded ?Last Taken ?Type loratadine 10 mg tablet (Allergy 10 mg PO DAILY Allergies 07/07/13 11/07/19 History Relief (loratadine)) lorazepam 1 mg tablet 1 mg PO BID PRN PRN Anxiety 12/11/13 06/26/19 History montelukast 10 mg tablet 10 mg PO QHS 08/10/16 11/07/19 History sumatriptan succinate 25 mg tablet 25 mg PO .X1 PRN PRN Migraine 08/10/16 06/30/19 History (Imitrex) Symptoms aripiprazole 2 mg tablet 5 mg PO QHS 07/01/19 06/20/23 History citalopram 40 mg tablet 40 mg PO DAILY 07/01/19 09/28/23 History lamotrigine 200 mg tablet 200 mg PO BID 07/01/19 09/28/23 History metformin 500 mg tablet 1,000 mg PO BID dm 07/01/19 11/07/19 History naproxen 500 mg tablet 500 mg PO BID PRN PRN Pain Or Fever 07/01/19 Unknown History topiramate 100 mg tablet 100 mg PO BID 07/01/19 11/07/19 History glimepiride 2 mg tablet 4 mg PO DAILY 11/08/19 11/07/19 History lansoprazole 30 mg capsule,delayed 30 mg PO DAILY #30 CAPSULES 12/30/20 09/28/23 Rx release albuterol sulfate 90 mcg/actuation 2 puff inhalation Q4H PRN PRN 09/07/22 09/28/23 Rx aerosol inhaler (Ventolin HFA) Wheezing ##1 ferrous sulfate 325 mg (65 mg 325 mg PO TID #90 tabs 09/07/22 Unknown Rx iron) tablet (FeroSul) furosemide 20 mg tablet 20 mg PO BID 09/07/22 Unknown History cyclobenzaprine 10 mg tablet 10 mg PO TID PRN Muscle Spasm #20 12/09/22 Unknown Rx TABLETS pramipexole 1.5 mg tablet (Mirapex) 1.5 mg PO QHS 09/25/23 Unknown History ascorbic acid (vitamin C) 1,000 mg 1 g PO DAILY 90 days #90 tabs 09/28/23 Unknown Rx tablet (Vitamin C) calcium 500 mg (as 1 tab PO DAILY 90 days #90 tabs 09/28/23 Unknown Rx carbonate)-vitamin D3 15 mcg (600 unit) tablet (Os-Wilfredo 500 + D3) cyclobenzaprine 10 mg tablet 10 mg PO TID 7 days #21 tabs 09/28/23 Unknown Rx docusate sodium 100 mg capsule 100 mg PO DAILY 10 days #10 caps 09/28/23 Unknown Rx (Colace) acetaminophen 500 mg tablet 1,000 mg (2 x 500 mg) PO Q6H PRN 03/09/24 Unknown Rx (Tylenol Extra Strength) pain 7 days #56 tabs benztropine 1 mg tablet 1 mg PO BID PRN PRN legs 03/09/24 Unknown History quetiapine 25 mg tablet (Seroquel) 25 mg PO DAILY 04/09/24 04/09/24 History sulfamethoxazole 800 1 tab PO BID 2 weeks #28 tabs 06/25/24 Unknown Rx mg-trimethoprim 160 mg tablet (Bactrim DS) amoxicillin 875 mg-potassium 1 tab PO BID 2 weeks #28 tabs 07/02/24 Unknown Rx clavulanate 125 mg tablet gentamicin 0.1 % topical ointment 1 applic topical TID #30 grams 07/02/24 Unknown Rx cephalexin 500 mg capsule 500 mg PO Q6 #20 CAPSULES 07/17/24 Unknown Rx hydrocodone-acetaminophen 5-325mg 1 tab PO Q6H PRN PRN Pain 3 days 12/15/24 Unknown Rx 5mg-325mg #10 TABLETS Allergy/AdvReac Type Severity Reaction Status Date / Time amoxicillin (From Augmentin) Allergy Intermediate Hives Verified 09/18/24 15:45 clavulanic acid (From Allergy Intermediate Hives Verified 09/18/24 15:45 Augmentin) melatonin Allergy Hives Verified 09/18/24 15:45 Penicillins Allergy Hives Verified 09/18/24 15:45 Surgical History History of cardiac catheterization History of umbilical hernia repair (~2017) History of herniorrhaphy Social History household members: none Smoking Status: Current every day smoker tobacco type: cigarettes Tobacco: How many years used: 20 how long ago did patient quit smokin months substance use type: does not use ROS ROS ED Constitutional Constitutional ED: Denies chills or fever(s) Cardiovascular Cardiovascular: Reports leg edema Gastrointestinal Gastrointestinal: Denies abdominal pain, constipation, fecal incontinence, nausea or vomiting Genitourinary Genitourinary ED: Reports other Details: no urinary retention ; Denies abdominal discomfort or urinary incontinence Musculoskeletal Musculoskeletal: Reports as per HPI and back pain; Denies neck pain Integumentary Denies rash or wounds Neurologic Neurologic: Denies headache(s), paresthesias or weakness EXAM Physical Exam Const Vital Signs: 12/15/24 11:45 Temperature 98.1 F Temperature Source Temporal Pulse Rate 107 H Respiratory Rate 20 H Blood Pressure 139/83 H Blood Pressure Mean 101 Pulse Ox 100 Oxygen Delivery Method Room Air Positive well nourished and well developed Constitutional Narrative: Morbidly obese. No distress. General Appearance ED: well developed and NAD HEENT Negative for trauma or tenderness Eyes PERRL and EOMs intact bilaterally Neck full ROM and supple GI normal to inspection, nondistended, normoactive bowel sounds, soft to palpation and non-tender Back/Spine normal to inspection Lumbar Spine / Lower Back: ROM limited, paraspinal muscle tenderness bilateral and straight leg raise negative bilaterally; Negative for lumbar spinal tenderness Extremity normal to inspection and full ROM Extremity Narrative: Lymphedema especially right lower extremity, compression stocking on. Difficult to feel distal pulses due to lymphedema. Prescribe refill both toes/feet, good sensation. No calf tenderness. Neuro oriented x3 and no sensory deficits noted Sensorium / Orientation: alert Motor Exam: strength 5/5 throughout and clonus absent Deep Tendon Reflexes: Rt Patellar (L4): 2+, Lt Patellar (L4): 2+, Rt Ankle (S1): 2+ and Lt Ankle (S1): 2+ Deep Tendon Reflexes Back: Rt Patellar (L4): 2+, Lt Patellar (L4): 2+, Rt Ankle (S1): 2+ and Lt Ankle (S1): 2+ Plantar Reflex: Downgoing: bilateral Psych mental status grossly normal and thought process normal Skin no rashes or lesions noted and no wounds MDM MDM MDM Narrative Medical decision making narrative: Given her BMI and limited evaluation of her lumbar spine clinically, although she is not testing for radiculopathy I obtained three-view x-ray series of the lumbar spine on my interpretation negative for acute fracture. Radiology in agreement. She was given a [place], she is diabetic. I will give her a short prescription and advised outpatient follow-up. Radiography Diagnostic Testing: Clinical Impression(s) from Imaging Studies Lumbar Spine X-Ray 12/15/24 12:39 IMPRESSION: No acute process detected. Reading Location[facility] Discharge Plan Triage Chief Complaint: Back ED Provider: Arcadio Bundy Dx/Rx/DC Orders Clinical Impression: Acute low back pain Instructions: ED Back Pain (Acute or Chronic) Prescriptions: New hydrocodone-acetaminophen 5-325 mg tablet 1 tab PO Q6H PRN PRN (Reason: Pain) 3 Days Qty: 10 0RF No Action loratadine [Allergy Relief (loratadine)] 10 MG tablet 10 mg PO DAILY lorazepam 1 MG tablet 1 mg PO BID PRN PRN (Reason: Anxiety) sumatriptan succinate [Imitrex] 25 MG tablet 25 mg PO .X1 PRN PRN (Reason: Migraine Symptoms) montelukast 10 MG tablet 10 mg PO QHS metformin 500 MG tablet 1,000 mg PO BID Patient Comments: TAKE 2 TABLETS TWICE DAILY WITH meals lamotrigine 200 mg tablet 200 mg PO BID Patient Comments: 1 tablet twice a day citalopram 40 tablet 40 mg PO DAILY topiramate 100 MG tablet 100 mg PO BID Patient Comments: TAKE 1 TABLET TWICE DAILY naproxen 500 MG tablet 500 mg PO BID PRN PRN (Reason: Pain Or Fever) Patient Comments: TAKE 1 TABLET TWICE DAILY WITH FOOD NEEDED FOR PAIN /inflammation aripiprazole 2 mg tablet 5 mg PO QHS Patient Comments: Take 1 tablet by mouth once a day glimepiride 2 MG tablet 4 mg PO DAILY lansoprazole 30 MG capsule 30 mg PO DAILY Qty: 30 0RF furosemide 20 mg tablet 20 mg PO BID ferrous sulfate [FeroSul] 325 mg (65 mg iron) tablet 325 mg PO TID Qty: 90 0RF Rx Instructions: May start once a day for a week, twice a day for a week, and then start 3 times daily. albuterol sulfate [Ventolin HFA] 90 mcg/actuation HFA aerosol inhaler 2 puff inhalation Q4H PRN MDD Dispense with spacer if availa PRN (Reason: Wheezing) Qty: 1 0RF cyclobenzaprine [cyclobenzaprine] 10 mg tablet 10 mg PO TID PRN (Reason: Muscle Spasm) Qty: 20 0RF pramipexole [Mirapex] 1.5 mg tablet 1.5 mg PO QHS cyclobenzaprine 10 mg tablet 10 mg PO TID 7 Days Qty: 21 0RF docusate sodium [Colace] 100 mg capsule 100 mg PO DAILY 10 Days Qty: 10 0RF ascorbic acid (vitamin C) [Vitamin C] 1,000 mg tablet 1 g PO DAILY 90 Days Qty: 90 0RF calcium carbonate-vitamin D3 [Os-Wilfredo 500 + D3] 500 mg-15 mcg (600 unit) tablet 1 tab PO DAILY 90 Days Qty: 90 0RF sulfamethoxazole-trimethoprim [Bactrim DS] 800-160 mg tablet 1 tab PO BID 14 Days Qty: 28 0RF amoxicillin-pot clavulanate 875-125 mg tablet 1 tab PO BID 14 Days Qty: 28 0RF gentamicin 0.1 % ointment 1 applic topical TID Qty: 30 1RF Rx Instructions: Applied to full-thickness wound to the posterior right leg daily and cover with dry sterile dressing. benztropine 1 mg tablet 1 mg PO BID PRN PRN (Reason: legs) acetaminophen [Tylenol Extra Strength] 500 mg tablet 1,000 mg PO Q6H PRN (Reason: pain) 7 Days Qty: 56 0RF quetiapine [Seroquel] 25 mg tablet 25 mg PO DAILY Rx Instructions: 3 tablets daily cephalexin 500 mg capsule 500 mg PO Q6 Qty: 20 0RF Primary Care Provider: Verona Villarreal Referrals: Verona Villarreal MD [Primary Care Provider] - 1 Week if not improving Print Language: Hungarian Disposition Disposition: Home, Self Care
[2024-12-15] MEDS: HYDROcodone Bitartrate/Apap 5/325 Tablet PO (12:44)
[2024-12-15 14:47] VITALS: BP 138/88; PULSE 78; RESP 18; TEMP 36.6; O2SAT 95
== END 2024-12-15 15:01 | disposition home or self-care (01) ==
PROVIDERS: Emergency Provider Emergency Medicine; PCP Internal Medicine; Referring Provider Emergency Medicine; Visit Provider Emergency Medicine
DX: M54.50 Low back pain, unspecified (principal); J44.9 Chronic obstructive pulmonary disease, unspecified; E11.9 Type 2 diabetes mellitus without complications; I89.0 Lymphedema, not elsewhere classified; G89.29 Other chronic pain; F17.210 Nicotine dependence, cigarettes, uncomplicated; Z79.1 Long term (current) use of non-steroidal anti-inflammatories (NSAID); Z79.84 Long term (current) use of oral hypoglycemic drugs; Z79.899 Other long term (current) drug therapy
CPT/HCPCS: 72100; 99284

== ENCOUNTER 2025-01-26 10:39 | Outpatient (RCR) | payer MEDICAID, SELFPAY | END 2025-02-14 23:59 | LOC: NS 10:39 | PROVIDERS: PCP Internal Medicine; Referring Provider Podiatrist Foot & Ankle Surgery; Visit Provider Podiatrist Foot & Ankle Surgery | DX: Z71.3 Dietary counseling and surveillance (principal); E11.9 Type 2 diabetes mellitus without complications | CPT/HCPCS: 97803 ==

== ENCOUNTER 2025-03-11 10:15 | Outpatient (RCR) | payer MEDICAID, SELFPAY ==
[2024-12-16 00:26] VITALS: BP 139/90; PULSE 107; RESP 16; TEMP 36.6; BMI 62.5
--- NOTE | 2024-12-24 10:13 | WC ---
Received a call from Victorina with [facility] stating that they will process her compression wraps and will work out the details with Rhina on payment. They attempted to get ahold of patient with no response. I called patient's cell phone and left a message that they approved the wrap and will be contacting her and to respond to any calls to discuss details.
--- NOTE | 2025-01-12 10:02 | WC ---
Patient called and left a message on 01/09/25 calling about her compression from [place]. Rhina can special order her wrap or send her what they off the shelf and ship. She did not know what we wanted. Contacted Helen Collins from [email or web address] if she had a recommendation based on her leg measurements and what was covered from [facility]. Helen states she is getting the [place] wrap to ensure a good fit and contacted Nanci.
[2025-02-18 09:52] VITALS: BP 141/93; PULSE 108; RESP 18; TEMP 36.6; BMI 62.5
--- NOTE | 2025-02-18 10:36 | PCM.WC.PN ---
History of Present Illness Date of Service: 02/18/25 Chief Complaint: Ulceration right posterior leg History of Wound: Ulceration right posterior leg Progress of Wound: Reopening of full-thickness wound to the posterior aspect right leg Subjective Subjective Ms. Rodriguez is a 44-year-old diabetic female presented wound care center today follow-up evaluation of full-thickness wound that was healed to the posterior aspect of the right calf. Patient has been wearing multilayer compression wraps that CircAid's and was sized and fitted for these multilayer compression bandages. The patient is left lower extremity bandage was actually loose and I believe that there is possible lack of compression over the last couple of months to the right lower extremity. Patient states that her A1c is now 8.8%. She has refrained from smoking and admits to strict blood sugar control. She mitts pain to the right leg. She admits to some drainage. She denies trauma. Denies constitutional symptoms. No other pedal complaints at this time. Objective Data Objective Data Vital Signs: Vital Signs Temp Pulse Resp BP O2 Del Method 98 F 108 H 18 141/93 H Room Air 02/18/25 09:52 02/18/25 09:52 02/18/25 09:52 02/18/25 09:52 02/18/25 09:52 Oxygen Delivery Method Room Air Weight: 160.223 kg Body Mass Index (BMI) 62.5 Physical Exam Narrative Vascular: DP and PT pulses palpable. CFT is brisk. Nonpitting edema appreciated to right lower extremity. No erythema. Skin temperature gradient is warm to warm from proximal ankles to distal digit, no focal increase appreciated. Neurological: Light touch intact. Patient response to painful stimuli. Dermatological: Full-thickness wound to the right posterior calf measuring 1.7 x 0.4 x 0.1 cm. Evidence of maceration is appreciated. No active drainage at this time. No malodor. Excisional debridement down to including subcutaneous tissue with a number 3 mm dermal curette to the full-thickness wound to the posterior right calf done without incident.. Right measurement is 1.0 x 0.2 x 0.1 cm. Postdebridement measurement is 1.7 x 0.4 x 0.1 cm. Musculoskeletal: No pain with calf compression. No pain to palpation full-thickness ulceration right calf. Debridement Note Debridement Note Debridement Free Text: Excisional debridement down to including subcutaneous tissue with a number 3 mm dermal curette to the full-thickness wound to the posterior right calf done without incident.. Right measurement is 1.0 x 0.2 x 0.1 cm. Postdebridement measurement is 1.7 x 0.4 x 0.1 cm. Post-Debridement Measurements and Additional Note: Post-Debridement Measurements/Treatment - Nurse 1 - General Ulcer Assessment Start: 02/18/25 09:51 Freq: Status: Active Protocol: WATSON Activity Type Activity Date Activity User E-sign Co-sign Detail Recorded Client Recorded Date Recorded By Document 02/18/25 09:52 WY [id number] 02/18/25 10:13 W[place] 02/18/25 09:52 - Today's Visit Information Type of service Initial Visit Arrival Mode Ambulatory Accompanied by self Patient Identification Verified (Name & Yes ) Safety Precautions Fall Prevention Height and Weight Body Mass Index (BMI) 62.5 BMI Classification Obese Vital Signs Temperature (97.8 F-99.1 F) 98 F Temperature Source Temporal Pulse Rate (60-100) 108 H Pulse Location Monitor Respiratory Rate (12-18) 18 Respiratory rate source Observation Oxygen Delivery Method Room Air Blood Pressure (90/60-120/80) 141/93 H Blood Pressure Mean (mm Hg) 109 Source Monitor Position Sitting Blood Pressure Location Left Arm History Since Last Visit- (Skip if this is Patient's initial visit) Has dressing in place as prescribed Yes Has compression in place as prescribed Yes Has offloadiing in place as prescribed Yes Experienced any changes in pain level or Yes management Left Footwear Regular Shoe Right Footwear Regular Shoe Pain Scale: 0-10 Numeric Is Patient Pain Free? Yes - Nurse 1 - General Ulcer Measurement Start: 02/18/25 09:51 Freq: Status: Active Protocol: Activity Type Activity Date Activity User E-sign Co-sign Detail Recorded Client Recorded Date Recorded By Document 02/18/25 09:52 WY [id number] 02/18/25 10:13 WY 02/18/25 09:52 Wound Center Nurse 1 #2 Left Posterior Calf Superior -Current Size (cm) - Length 0.4 -Current Size (cm) - Width 0.4 -Current Size (cm) - Depth 0.2 -Total Square Cm 0.16 -Date of Last Picture (Recall this 02/18/25 field) -Photo Taken Yes -Tunneling No -Undermining/Tunneling No -Circular Undermining No -Exudate Amt Medium -Exudate Type Serosanguineous -Wound Margin Thickened & Rolled Under -Granulation Amt Large (67-100%) -Granulation Quality Pale,[place] -Necrosis Amt Small (1-33%) -Necrotic Tissue Type Adherent Slough -Texture (Rachele-wound Skin Appearance) Assessed -Moisture (Rachele-wound Skin Appearance) Assessed -Color (Rachele-wound Skin Appearance) Assessed -Temperature (Rachele-wound Skin No Abnormality Appearance) (Pt Warm) -Tenderness on Palpation (Rachele-wound No Skin Appearance) -Ulcer Cleansing Soap and Water -Foul Odor after Cleansing No -Anesthetic Used 5% Lidocaine Gel #3 right Post Inferior Calf cluster -Current Size (cm) - Length 1 -Current Size (cm) - Width 2.5 -Current Size (cm) - Depth 0.3 -Total Square Cm 2.5 -Date of Last Picture (Recall this 02/18/25 field) -Photo Taken Yes -Tunneling No -Undermining/Tunneling No -Exudate Amt Medium -Exudate Type Serosanguineous -Wound Margin Thickened & Rolled Under -Granulation Amt Large (67-100%) -Granulation Quality Pale,[place] -Necrosis Amt Small (1-33%) -Necrotic Tissue Type Adherent Slough -Texture (Rachele-wound Skin Appearance) Assessed -Moisture (Rachele-wound Skin Appearance) Assessed -Color (Rachele-wound Skin Appearance) Assessed -Temperature (Rachele-wound Skin No Abnormality Appearance) (Pt Warm) -Tenderness on Palpation (Rachele-wound No Skin Appearance) -Ulcer Cleansing Soap and Water -Foul Odor after Cleansing No -Anesthetic Used 5% Lidocaine Gel WC - Nurse 2 - General Ulcer CM Notes Start: 02/18/25 09:51 Freq: Status: Active Protocol: Activity Type Activity Date Activity User E-sign Co-sign Detail Recorded Client Recorded Date Recorded By Document 02/18/25 10:26 RUBA [id number] 02/18/25 10:27 RUBA 02/18/25 10:26 Wound Center Nurse 2 -Time 10:26 -Correct Patient Yes -Correct Side, Site, Position Yes -Correct Procedure Yes -Procedure Performed Yes -Type of Procedure Debridement -Clinical Debridement Subcutaneous -Tissue Removed Subcutaneous -Post Debridement (cm) - Length 1.7 -Post Debridement (cm) - Width 0.4 -Post Debridement (cm) - Depth 0.1 -Total Square (Post) (cm) 0.68 -Area of Debridement (cm) - Length 1.7 -Area of Debridement (cm) - Width 0.4 -Total Square (Area) (cm) 0.68 -Tunneling No -Undermining/Tunneling No -Circular Undermining No -Wound/Ulcer Outcome Not Healed -Ulcer Cleansing Rinsed/ Irrigated with Saline -Foul Odor after Cleansing No -Bioengineered Tissue No -Bleeding Controlled with Pressure -Treatment Response Procedure Tolerated Well -Offloading No -Debridement - Subq, 1st 20sq cm Yes Pain Scale: 0-10 Numeric Is Patient Pain Free? 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 All findings were discussed with the patient. All questions were answered to the patient's satisfaction. Excisional debridement down to including subcutaneous tissue with a number 3 mm dermal curette to the full-thickness wound to the posterior right calf done without incident.. Right measurement is 1.0 x 0.2 x 0.1 cm. Postdebridement measurement is 1.7 x 0.4 x 0.1 cm. A culture was taken from the posterior leg wound and the patient will be placed on antibiotics once culture and sensitivity is received. At this time the right posterior calf was wiped clean and patted dry. The area was dressed with Betadine paint and a 3M multilayer compression bandage was donned to the bilateral extremity. the patient will follow-up for nursing visits weekly for dressing changes as well as evaluation. Follow-up at the wound care center with Dr. Lord in 3 week. (2) Lymphedema: CODE(S): I89.0 - Lymphedema, not elsewhere classified
--- NOTE | 2025-02-18 14:18 | WC ---
PHOTO 02/18/25 LEFT POST CALF
--- NOTE | 2025-02-18 14:23 | WC ---
PHOTO 02/18/25 LEFT POST INF
[2025-02-20 11:49] VITALS: BP 145/113; PULSE 104; RESP 18; TEMP 36.1; BMI 62.5
[2025-02-25 10:17] VITALS: BP 158/89; PULSE 102; RESP 18; TEMP 36.2; BMI 62.5
[2025-03-04 10:38] VITALS: BP 127/81; PULSE 100; TEMP 36.1; BMI 62.5
[2025-03-11 09:40] VITALS: BP 150/91; PULSE 102; RESP 18; TEMP 36.1; BMI 62.5
--- NOTE | 2025-03-11 10:50 | PCM.WC.PN ---
History of Present Illness Date of Service: 03/11/25 Chief Complaint: Ulceration right posterior leg History of Wound: Ulceration right posterior leg Progress of Wound: Stable full-thickness wound right calf, healed Subjective Subjective Patient is a 44-year-old diabetic female presented wound care center today for follow-up evaluation of right posterior calf full-thickness wound. Patient has been compliant with multilayer compression wraps. She states that her blood sugars well-controlled. She believes that her wound is now healed. She denies any drainage or pain. Denies trauma. Denies constitutional symptoms. No other pedal complaints at this time. Objective Data Objective Data Vital Signs: Vital Signs Temp Pulse Resp BP O2 Del Method 97 F L 102 H 18 150/91 H Room Air 03/11/25 09:40 03/11/25 09:40 03/11/25 09:40 03/11/25 09:40 03/04/25 10:38 Oxygen Delivery Method Room Air Weight: 160.223 kg Body Mass Index (BMI) 62.5 Lab / Micro Data Micro: Microbiology 02/18/25 10:23 Ulcer, Decubitus - Leg, Right Gram Stain - Final 02/18/25 10:23 Ulcer, Decubitus - Leg, Right Wound Culture - Final Escherichia coli Klebsiella spp. Staphylococcus aureus Streptococcus agalactiae (B) Corynebacterium amycolatum/xer 02/18/25 10:23 Ulcer, Decubitus - Leg, Right Anaerobic Culture - Final Clostridium clostridioforme Physical Exam Narrative Vascular: DP and PT pulses palpable. CFT is brisk. Nonpitting edema appreciated to right lower extremity. No erythema. Skin temperature gradient is warm to warm from proximal ankles to distal digit, no focal increase appreciated. Neurological: Light touch intact. Patient response to painful stimuli. Dermatological: Full-thickness wound to the right posterior calf is now healed. No maceration drainage or concern for infection. Musculoskeletal: No pain with calf compression. No pain to palpation full-thickness ulceration right calf. Debridement Note Debridement Note Post-Debridement Measurements and Additional Note: Post-Debridement Measurements/Treatment PANCHITO - Nurse 1 - General Ulcer Assessment Start: 02/18/25 09:51 Freq: Status: Active Protocol: EVGENYEXT Activity Type Activity Date Activity User E-sign Co-sign Detail Recorded Client Recorded Date Recorded By Document 02/18/25 09:52 MT [id number] 02/18/25 10:13 MT Document 02/20/25 11:49 KW [id number] 02/20/25 12:21 KW Document 02/25/25 10:17 RB [id number] 02/25/25 10:21 RB Document 03/04/25 10:38 MT [id number] 03/04/25 11:01 MT Document 03/11/25 09:40 RB [id number] 03/11/25 09:46 RB 02/18/25 02/20/25 02/25/25 09:52 11:49 10:17 WC - Today's Visit Information Type of service Initial Visit Nurse-only Nurse-only Visit Visit Arrival Mode Ambulatory Ambulatory Ambulatory, Walker Transfer Assistance None Accompanied by self Patient Identification Verified (Name & Yes Yes Yes ) Patient Requires Transmission-Based No Precautions Safety Precautions Fall Prevention Height and Weight Body Mass Index (BMI) 62.5 62.5 62.5 BMI Classification Obese Obese Obese Vital Signs Temperature (97.8 F-99.1 F) 98 F 96.9 F L 97.1 F L Temperature Source Temporal Temporal Temporal Pulse Rate (60-100) 108 H 104 H 102 H Pulse Location Monitor Monitor Monitor Respiratory Rate (12-18) 18 18 18 Respiratory rate source Observation Observation Observation Oxygen Delivery Method Room Air Blood Pressure (90/60-120/80) 141/93 H 145/113 H 158/89 H Blood Pressure Mean (mm Hg) 109 123 112 Source Monitor Monitor Monitor Position Sitting Sitting Sitting Blood Pressure Location Left Arm Left Forearm Left Forearm History Since Last Visit- (Skip if this is Patient's initial visit) Have you changed medications since your No last visit? Any new allergies or adverse reactions No Had a fall/change in ADL's that may No increase risk of falls Signs or symptoms of abuse and/or No neglect since last visit Have you been in the hospital since your No last visit? Has dressing in place as prescribed Yes Yes Has compression in place as prescribed Yes Yes Has offloadiing in place as prescribed Yes No Experienced any changes in pain level or Yes No management Left Footwear Regular Shoe Regular Shoe Regular Shoe Right Footwear Regular Shoe Regular Shoe Regular Shoe Pain Scale: 0-10 Numeric Is Patient Pain Free? Yes Yes Yes 03/04/25 03/11/25 10:38 09:40 WC - Today's Visit Information Type of service Nurse-only Follow-up Visit Visit (Physician/DOCTOR OSTEOPATHIC ) Arrival Mode Ambulatory, Ambulatory Walker Transfer Assistance Manual Accompanied by self Patient Identification Verified (Name & Yes Yes ) Patient Requires Transmission-Based No Precautions Safety Precautions Fall Prevention Height and Weight Body Mass Index (BMI) 62.5 62.5 BMI Classification Obese Obese Vital Signs Temperature (97.8 F-99.1 F) 97 F L 97 F L Temperature Source Temporal Temporal Pulse Rate (60-100) 100 102 H Pulse Location Monitor Monitor Respiratory Rate (12-18) 18 Respiratory rate source Observation Observation Oxygen Delivery Method Room Air Blood Pressure (90/60-120/80) 127/81 H 150/91 H Blood Pressure Mean (mm Hg) 96 110 Source Monitor Monitor Position Sitting Semi-Fowlers Blood Pressure Location Left Forearm Left Arm History Since Last Visit- (Skip if this is Patient's initial visit) Have you changed medications since your No last visit? Any new allergies or adverse reactions No Had a fall/change in ADL's that may No increase risk of falls Signs or symptoms of abuse and/or No neglect since last visit Have you been in the hospital since your No last visit? Has dressing in place as prescribed Yes Has compression in place as prescribed Yes Has offloadiing in place as prescribed N/A Experienced any changes in pain level or No management Left Footwear Regular Shoe Right Footwear Regular Shoe Pain Scale: 0-10 Numeric Is Patient Pain Free? Yes Yes WC - Nurse 1 - General Ulcer Measurement Start: 02/18/25 09:51 Freq: Status: Active Protocol: Activity Type Activity Date Activity User E-sign Co-sign Detail Recorded Client Recorded Date Recorded By Document 02/18/25 09:52 MT [id number] 02/18/25 10:13 MT Document 02/25/25 10:17 RB [id number] 02/25/25 10:21 RB Document 03/11/25 09:40 RB [id number] 03/11/25 09:46 RB 02/18/25 02/25/25 03/11/25 09:52 10:17 09:40 Wound Center Nurse 1 #2 Left Posterior Calf Superior -Current Size (cm) - Length 0.4 -Current Size (cm) - Width 0.4 -Current Size (cm) - Depth 0.2 -Total Square Cm 0.16 -Date of Last Picture (Recall this 02/18/25 field) -Photo Taken Yes -Tunneling No -Undermining/Tunneling No -Circular Undermining No -Exudate Amt Medium -Exudate Type Serosanguineous -Wound Margin Thickened & Rolled Under -Granulation Amt Large (67-100%) -Granulation Quality Pale,[place] -Necrosis Amt Small (1-33%) -Necrotic Tissue Type Adherent Slough -Texture (Rachele-wound Skin Appearance) Assessed -Moisture (Rachele-wound Skin Appearance) Assessed -Color (Rachele-wound Skin Appearance) Assessed -Temperature (Rachele-wound Skin No Abnormality Appearance) (Pt Warm) -Tenderness on Palpation (Racheel-wound No Skin Appearance) -Ulcer Cleansing Soap and Water -Foul Odor after Cleansing No -Anesthetic Used 5% Lidocaine Gel #3 right Post Inferior Calf cluster -Combined with other wound No -Current Size (cm) - Length 1 0.1 -Current Size (cm) - Width 2.5 0.1 -Current Size (cm) - Depth 0.3 0.1 -Total Square Cm 2.5 0.01 -Date of Last Picture (Recall this 02/18/25 field) -Photo Taken Yes Yes -Tunneling No No -Undermining/Tunneling No No -Circular Undermining No -Exudate Amt Medium Small -Exudate Type Serosanguineous Serosanguineous -Wound Margin Thickened & Distinct, Rolled Under Outline Attached -Granulation Amt Large (67-100%) Medium (34-66%) -Granulation Quality Pale,[place] -Slough/Fibrin Yes -Necrosis Amt Small (1-33%) Medium (34-66%) -Necrotic Tissue Type Adherent Slough Adherent Slough -Structure Exposed N/A -Texture (Rachele-wound Skin Appearance) Assessed Assessed, Excoriation -Moisture (Rachele-wound Skin Appearance) Assessed Assessed -Color (Rachele-wound Skin Appearance) Assessed Assessed -Temperature (Rachele-wound Skin No Abnormality No Abnormality Appearance) (Pt Warm) (Pt Warm) -Tenderness on Palpation (Rachele-wound No No Skin Appearance) -Ulcer Cleansing Soap and Water Wound Cleanser -Foul Odor after Cleansing No No -Anesthetic Used 5% Lidocaine 5% Lidocaine Gel Gel Lower Limb Edema Present Yes Yes Right Calf (cm) 67.2 63.5 Right Ankle (cm) 32 32 Left Calf (cm) 62.5 56.5 Left Ankle (cm) 33.2 31 - Nurse 2 - General Ulcer CM Notes Start: 02/18/25 09:51 Freq: Status: Active Protocol: Activity Type Activity Date Activity User E-sign Co-sign Detail Recorded Client Recorded Date Recorded By Document 02/18/25 10:26 JF [id number] 02/18/25 10:27 JF Document 03/11/25 09:56 DS [id number] 03/11/25 09:57 DS Edit Result 03/11/25 09:56 DS (1) [id number] 03/11/25 09:59 DS (1) #3 right Post Inferior Calf cluster - Correct Procedure Yes => - Procedure Performed Yes => No - Type of Procedure Debridement => - Clinical Debridement Subcutaneous => - Wound/Ulcer Outcome Not Healed => Healed- => Epithelialized - Ulcer Cleansing Rinsed/Irrigated => with Saline => - Foul Odor after Cleansing No => - Bioengineered Tissue No => - Bleeding Controlled with Pressure => - Treatment Response Procedure => Tolerated Well => - Debridement - Subq, 1st 20sq cm Yes => 02/18/25 03/11/25 10:26 09:56 Wound Center Nurse 2 #3 right Post Inferior Calf cluster -Time 10:26 09:56 -Correct Patient Yes Yes -Correct Side, Site, Position Yes Yes -Correct Procedure Yes -Procedure Performed Yes No -Type of Procedure Debridement -Clinical Debridement Subcutaneous -Tissue Removed Subcutaneous Subcutaneous -Post Debridement (cm) - Length 1.7 0.1 -Post Debridement (cm) - Width 0.4 0.1 -Post Debridement (cm) - Depth 0.1 0.1 -Total Square (Post) (cm) 0.68 0.01 -Area of Debridement (cm) - Length 1.7 0.1 -Area of Debridement (cm) - Width 0.4 0.1 -Total Square (Area) (cm) 0.68 0.01 -Tunneling No No -Undermining/Tunneling No No -Circular Undermining No No -Wound/Ulcer Outcome Not Healed Healed- Epithelialized -Ulcer Cleansing Rinsed/ Irrigated with Saline -Foul Odor after Cleansing No -Bioengineered Tissue No -Bleeding Controlled with Pressure -Treatment Response Procedure Tolerated Well -Offloading No -Debridement - Subq, 1st 20sq cm Yes Pain Scale: 0-10 Numeric Is Patient Pain Free? Yes Yes - Nurse 3 - General Ulcer D/C NN Start: 02/18/25 09:51 Freq: Status: Active Protocol: Activity Type Activity Date Activity User E-sign Co-sign Detail Recorded Client Recorded Date Recorded By Document 02/18/25 10:48 GM [id number] 02/18/25 10:49 GM Document 02/20/25 11:49 KW [id number] 02/20/25 12:21 KW Document 02/25/25 10:17 RB [id number] 02/25/25 10:21 RB Document 03/04/25 10:38 MT [id number] 03/04/25 11:01 MT Edit Result 03/04/25 10:38 MT (1) [id number] 03/04/25 12:28 MT Document 03/11/25 10:14 RB [id number] 03/11/25 10:15 RB (1) BLE - Multi-Layer Compression Bilat (Qty 2 => 1 applied) 02/18/25 02/20/25 02/25/25 10:48 11:49 10:17 Wound Care Center Nurse 3 #3 right Post Inferior Calf cluster -Ulcer Cleansing Not Cleansed Soap and Water -Foul Odor after Cleansing No -Negative Pressure Wound Therapy -Other Dressing betadine betadine gauze/ ABD -Primary Dressing Covered/Secured with Dry Gauze & Dry Gauze & Dry Gauze & Roll Gauze, Roll Gauze, Roll Gauze, Secured with Secured with Secured with Tape Tape Tape Rachele-Wound Care BLE -Lotion applied to leg before Yes compression wrap -Multi-Layered Wrap Application Multi-Layer Multi-Layer Comp - Bilat ($ Comp - Bilat ($ ) ) -Stockings -Multi-Layer Compression Bilat (Qty 1 1 applied) Right Lower Leg -Lotion applied to leg before No compression wrap -Multi-Layered Wrap Application Multi-Layer Comp - Bilat ($ ) -Size of Tubigrip Used -Size F ($) -Multi-Layer Compression Bilat (Qty 1 applied) Treatment Response Procedure Tolerated Well Pain Scale: 0-10 Numeric Is Patient Pain Free? Yes Yes Yes - Visit Discharge Discharge Condition Stable Stable Stable Ambulatory Status Ambulatory, Ambulatory Ambulatory, Walker Walker Transportation Private Auto Private Auto Private Auto Medication Reconcilliation completed & No No provided to patient/care provider Clinical Summary of Care Provided Yes Yes Notes: 2 boxes of 3M used bilat 03/04/25 03/11/25 10:38 10:14 Wound Care Center Nurse 3 #3 right Post Inferior Calf cluster -Ulcer Cleansing Soap and Water -Foul Odor after Cleansing No -Negative Pressure Wound Therapy N/A -Other Dressing betadine -Primary Dressing Covered/Secured with Dry Gauze & Roll Gauze, Secured with Tape Rachele-Wound Care Lotion BLE -Lotion applied to leg before compression wrap -Multi-Layered Wrap Application Multi-Layer Comp - Bilat ($ ) -Stockings Yes: pt own circaids -Multi-Layer Compression Bilat (Qty 1 applied) Right Lower Leg -Lotion applied to leg before compression wrap -Multi-Layered Wrap Application -Size of Tubigrip Used Size F -Size F ($) 2 -Multi-Layer Compression Bilat (Qty applied) Treatment Response Procedure Tolerated Well Pain Scale: 0-10 Numeric Is Patient Pain Free? 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 All findings were discussed with the patient. All questions were answered to the patient's satisfaction. The patient is full-thickness wound to the right lower extremity is now healed. Patient will be discharged from the wound care center. Patient was placed in her multi layer wrap/CircAid's to the by the lower extremity. She will continue to change them daily. I educated the patient if she is concern for any skin breakdown she is to call the wound care center today to get back on the schedule for multilayer compression wraps. Patient will continue strict blood sugar control. She will be following up with bariatric surgery at [facility] in the next few weeks. Patient will be discharged from the wound care center today as she is healed. (2) Lymphedema: CODE(S): I89.0 - Lymphedema, not elsewhere classified
--- NOTE | 2025-03-12 10:05 | WC ---
PHOTO 03/11/25 RIGHT LEG CLUSTER
== END 2025-03-16 23:59 | disposition home or self-care (01) ==
LOC: WC 10:15
PROVIDERS: PCP Internal Medicine; Referring Provider Internal Medicine; Visit Provider Podiatrist Foot & Ankle Surgery
DX: E11.622 Type 2 diabetes mellitus with other skin ulcer (principal); L97.212 Non-pressure chronic ulcer of right calf with fat layer exposed; I89.0 Lymphedema, not elsewhere classified; Z79.84 Long term (current) use of oral hypoglycemic drugs; Z79.899 Other long term (current) drug therapy
CPT/HCPCS: 11042; 29581; 87070; 87075; 87077; 87186; 87205; 99213; G0463

== ENCOUNTER 2025-03-31 10:30 | Outpatient (RCR) | payer MEDICAID, SELFPAY | END 2025-04-16 23:59 | LOC: NS 10:30 | PROVIDERS: PCP Internal Medicine; Referring Provider Podiatrist Foot & Ankle Surgery; Visit Provider Podiatrist Foot & Ankle Surgery | DX: Z71.3 Dietary counseling and surveillance (principal); E11.9 Type 2 diabetes mellitus without complications | CPT/HCPCS: 97803 ==

== ENCOUNTER 2025-05-06 09:04 | Outpatient (RCR) | payer MEDICAID, SELFPAY ==
[2025-05-06 09:46] VITALS: BP 169/91; PULSE 101; RESP 16; TEMP 35.9
--- NOTE | 2025-05-06 12:47 | PN.PCM_ITS ---
History of Present Illness Date of Service: 05/06/25 Chief Complaint: Ulceration right posterior leg History of Wound: Ulceration right posterior leg Progress of Wound: Healed full-thickness right calf wound. Subjective Subjective Patient is a 44-year-old diabetic female presenting to wound care center today for follow-up evaluation of full-thickness wound to the posterior right calf. Patient has been compliant with her multilayer compression wraps that she does at home. Patient wants to report that her A1c is 6.6% and her blood sugar is 143 mg/dL. Patient is down in weight as well and is doing very well. She is very motivated to continue a more positive lifestyle as she most recently lost her mother and has made a promise to get her life improved. She denies any trauma. Denies constitutional symptoms. Other pedal complaints at this time. Objective Data Objective Data Vital Signs: Vital Signs Temp Pulse Resp BP 96.7 F L 101 H 16 169/91 H 05/06/25 09:46 05/06/25 09:46 05/06/25 09:46 05/06/25 09:46 Physical Exam Narrative Vascular: DP and PT pulse palpable to the right lower extremity. CFT is brisk. Skin temp gradient is warm to warm from proximal ankle to distal digits of the right lower extremity. No focal increase is appreciated. No erythema is noted. +1 pitting edema appreciated to the right lower extremity. Indurated tissue appreciated to the posterior right calf. Neurological: Light touch is intact. Protective station is diminished to the forefoot but reestablished at the midfoot and ankle. Dermatological: Evidence of fissuring due to body habitus to the posterior right calf with no evidence of full-thickness wounds. Previous full-thickness wounds are all healed. No drainage or concern for infection. Muscle skeletal: No pain to palpation to the right calf. No pain with calf compression. Debridement Note Debridement Note Post-Debridement Measurements and Additional Note: Post-Debridement Measurements/Treatment - Nurse 1 - General Ulcer Assessment Start: 05/06/25 09:46 Freq: Status: Active Protocol: [facility] Activity Type Activity Date Activity User E-sign Co-sign Detail Recorded Client Recorded Date Recorded By Document 05/06/25 09:46 ML [id number] 05/06/25 09:56 ML 05/06/25 09:46 - Today's Visit Information Type of service Initial Visit Arrival Mode Walker Transfer Assistance None Patient Identification Verified (Name & Yes ) Patient Requires Transmission-Based No Precautions Vital Signs Temperature (97.8 F-99.1 F) 96.7 F L Temperature Source Temporal Pulse Rate (60-100) 101 H Pulse Location Monitor Respiratory Rate (12-18) 16 Respiratory rate source Observation Blood Pressure (90/60-120/80) 169/91 H Blood Pressure Mean (mm Hg) 117 Source Monitor Position Sitting Blood Pressure Location Right Forearm History Since Last Visit- (Skip if this is Patient's initial visit) Have you changed medications since your No last visit? Any new allergies or adverse reactions No Had a fall/change in ADL's that may No increase risk of falls Signs or symptoms of abuse and/or No neglect since last visit Have you been in the hospital since your No last visit? Has dressing in place as prescribed No Has compression in place as prescribed Yes Has offloadiing in place as prescribed N/A Experienced any changes in pain level or No management Pain Scale: 0-10 Numeric Is Patient Pain Free? Yes WC - Nurse 1 - General Ulcer Measurement Start: 05/06/25 09:46 Freq: Status: Active Protocol: Activity Type Activity Date Activity User E-sign Co-sign Detail Recorded Client Recorded Date Recorded By Document 05/06/25 09:46 ML [id number] 05/06/25 09:56 ML 05/06/25 09:46 Wound Center Nurse 1 Lower Limb Edema Present Yes Right Calf (cm) 65 Right Ankle (cm) 33 Assessment/Plan Assessment/Plan (1) Lymphedema, not elsewhere classified: CODE(S): I89.0 - Lymphedema, not elsewhere classified PLAN: Patient was examined and evaluated. All findings were discussed with the patient. All questions were answered to the patient's satisfaction. After exam the patient's previous full-thickness wound has continued to stay healed to the posterior right calf. Educated the patient that she needs to make sure that she is wearing her CircAid multilayer compression wraps at all times s pecially when standing and walking for long periods of time which she is understanding of. Patient will continue to monitor her blood sugar and continue strict blood sugar control as her most recent A1c was 6.6% and blood sugar was 143 mg/dL. Patient will continue to monitor her bilateral legs as discussed. Patient will be discharged from the wound care center today.
--- NOTE | 2025-05-06 14:16 | WC ---
PHOTO-RLE 05/06/25
== END 2025-05-14 07:48 | disposition home or self-care (01) ==
LOC: WC 09:04
PROVIDERS: PCP Internal Medicine; Referring Provider Internal Medicine; Visit Provider Podiatrist Foot & Ankle Surgery
DX: Z09 Encounter for follow-up examination after completed treatment for conditions other than malignant neoplasm (principal); E11.9 Type 2 diabetes mellitus without complications; I89.0 Lymphedema, not elsewhere classified; Z79.84 Long term (current) use of oral hypoglycemic drugs; Z79.899 Other long term (current) drug therapy
CPT/HCPCS: 99213; G0463

== ENCOUNTER 2025-06-02 10:38 | Outpatient (RCR) | payer MEDICAID, SELFPAY | END 2025-06-16 23:59 | LOC: NS 10:38 | PROVIDERS: PCP Internal Medicine; Referring Provider Podiatrist Foot & Ankle Surgery; Visit Provider Podiatrist Foot & Ankle Surgery | DX: Z71.3 Dietary counseling and surveillance (principal); E11.9 Type 2 diabetes mellitus without complications | CPT/HCPCS: 97803 ==

== ENCOUNTER 2025-07-04 18:05 | Emergency (ER) | payer MEDICAID, SELFPAY ==
[2025-07-04 18:05] VITALS: BP 177/121; PULSE 114; RESP 18; TEMP 36.6; O2SAT 99
[2025-07-04 18:08] VITALS: BMI 67.8
[2025-07-04 19:47] LABS: Mucous, Urine 0 SEEN /hpf (<or=2+); Red Blood Cells-Urine 0 SEEN /hpf (0-5)
[2025-07-04 19:49] LABS: Color, Urine Yellow (Yellow); Glucose, Dipstick 1000 mg/dl (Normal); Ketone-Dipstick Negative (Negative); Leukocyte Esterase-Dipstick 500 /ul (Negative); Nitrite-Dipstick Negative (Negative); Occult Blood-Urine Negative /ul (Negative); Protein-Dipstick 15 mg/dl (Negative); Specific Gravity, Urine 1.010 (1.002-1.030); Urine Bilirubin Dipstick Negative (Negative)
[2025-07-04 19:50] LABS: Hematocrit 40.5 % (37-47); Hemoglobin 13.1 g/dL (12.0-15.0); Immature Granulocytes Count 0.020 X10^3/uL (0.0-0.0); Mean Corp Hgb Conc 32.3 g/dL (32-36); Mean Corpuscular Volume 89.4 fL (81-99); Mean Platelet Vol. 9.9 fl (6.2-12.0); NRBC Flagged by Analyzer 0 % (0-5); POSITIVE COUNT YES; Platelet Count 80 K/mm3 (150-450); RBC Distribution Width CV 15.4 % (11.6-14.6); RBC Distribution Width SD 50.4 fl (35.1-43.9); Red Blood Count 4.53 M/mm3 (4.2-5.4); White Blood Count 4.3 K/mm3 (4.4-11.0)
[2025-07-04 19:55] LABS: Internal QC Validated? YES +Cl - CLEAR BKGD; Pregnancy, Urine Negative Negative; Record Kit Lot#,Urine Preg 980607
[2025-07-04 20:00] LABS: Squamous Epithelial Cells - UA 0-5 SEEN /hpf (5-10)
[2025-07-04 20:05] VITALS: BP 121/69; PULSE 105; RESP 17; O2SAT 96
[2025-07-04 20:07] LABS: Differential Indicated SCAN CRITERIA MET
[2025-07-04 20:33] LABS: AST(SGOT) 28 U/L (<=31); Alanine Aminotransfer ALT/SGPT 25 U/L (<=34); Albumin, Serum 3.7 g/dL (3.5-5.0); Alkaline Phosphatase 114 U/L (35-104); Anion Gap 11 (5-15); BUN 13 mg/dL (4-19); BUN/Creat Ratio 22.7 RATIO (10-20); Calcium,Total 8.6 mg/dL (7.6-11.0); Carbon Dioxide 24.3 mmol/L (21.0-32.0); Chloride 104 mmol/L (98-108); Estimated Creatinine Clearance 202.83 ml/min (50-250); Globulin 3.5 g/dL (2.2-4.2); Glucose 233 mg/dL (70-99); Potassium 3.8 mmol/L (3.3-5.1)
[2025-07-04 20:37] LABS: Pro- Brain NATRIURETIC PEPTIDE < 36 pg/mL (<=450)
[2025-07-04 20:49] LABS: CPK Total, Creatine Kinase 45 U/L (24-195)
[2025-07-04 21:51] VITALS: O2SAT 95
[2025-07-04 21:57] VITALS: BP 179/84; O2SAT 97
[2025-07-04 21:58] VITALS: BP 165/83; PULSE 103; RESP 20; TEMP 36.6; O2SAT 97
== END 2025-07-04 22:23 | disposition home or self-care (01) ==
PROVIDERS: Emergency Provider Emergency Medicine; PCP Internal Medicine; Visit Provider Emergency Medicine
DX: N39.0 Urinary tract infection, site not specified (principal); F31.9 Bipolar disorder, unspecified; J44.9 Chronic obstructive pulmonary disease, unspecified; E66.01 Morbid (severe) obesity due to excess calories; E11.65 Type 2 diabetes mellitus with hyperglycemia; E11.42 Type 2 diabetes mellitus with diabetic polyneuropathy; R60.9 Edema, unspecified; I89.0 Lymphedema, not elsewhere classified; R11.0 Nausea; G47.33 Obstructive sleep apnea (adult) (pediatric); F17.200 Nicotine dependence, unspecified, uncomplicated; Z79.84 Long term (current) use of oral hypoglycemic drugs; Z79.899 Other long term (current) drug therapy
CPT/HCPCS: 71046; 80053; 81001; 81025; 82550; 83880; 84443; 85025; 87086; 87088; 93005; 99284; A4216

== ENCOUNTER 2025-07-17 13:00 | Outpatient (RCR) | payer MEDICAID, SELFPAY ==
[2025-06-24 09:23] VITALS: BP 157/82; PULSE 100; RESP 18; TEMP 36.6
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
--- NOTE | 2025-06-25 09:26 | WC ---
PHOTO-RIGHT POST CALF CLUSTER 06/24/25
[2025-07-01 08:25] VITALS: BP 143/98; PULSE 106; RESP 16; TEMP 35.6
--- NOTE | 2025-07-01 08:46 | PN.PCM_ITS ---
History of Present Illness Date of Service: 07/01/25 Chief Complaint: Ulceration right posterior leg History of Wound: Ulceration right posterior leg Progress of Wound: Stable full-thickness wound posterior right calf/leg Subjective Subjective Patient is a 44-year-old diabetic female presented clinic today follow-up evaluation of full-thickness wound to the posterior aspect of the right lower extremity. Patient has been compliant with multilayer compression bandage. She is left a clean dry and intact. Denies strikethrough. Blood sugars been well- controlled. She states that the blood sugars below 160 mg/dL daily. Denies trauma. Denies constitutional symptoms. No other pedal complaints at this time. Objective Data Objective Data Vital Signs: Vital Signs Temp Pulse Resp BP O2 Del Method 96.1 F L 106 H 16 143/98 H Room Air 07/01/25 08:25 07/01/25 08:25 07/01/25 08:25 07/01/25 08:25 06/24/25 09:23 Oxygen Delivery Method Room Air Physical Exam Narrative Vascular: DP and PT pulse palpable to the right lower extremity. CFT is brisk. Skin temp gradient is warm to warm from proximal ankle to distal digits of the right lower extremity. No focal increase is appreciated. No erythema is noted. +1 pitting edema appreciated to the right lower extremity, improving. Neurological: Light touch is intact. Protective station is diminished to the forefoot but reestablished at the midfoot and ankle. Dermatological: Evidence of full-thickness wound to the posterior right leg measuring 4.5 x 4.5 x 0.1 cm. Wound base is granular nature. No drainage. No maceration appreciated. No malodor. Negative probe to bone. Excisional debridement down to and including subcutaneous tissue with a number 5 mm dermal curette to the right posterior leg full-thickness wound done without incident. Predebridement measurement was 4.3 x 4.4 x 0.1 cm. Postdebridement measurements 4.5 x 4.5 x 0.1 cm. Muscle skeletal: No pain to palpation to the right calf. No pain with calf compression. Debridement Note Debridement Note Debridement Free Text: Excisional debridement down to and including subcutaneous tissue with a number 5 mm dermal curette to the right posterior leg full- thickness wound done without incident. Predebridement measurement was 4.3 x 4.4 x 0.1 cm. Postdebridement measurements 4.5 x 4.5 x 0.1 cm. Post-Debridement Measurements and Additional Note: Post-Debridement Measurements/Treatment WC - Nurse 1 - General Ulcer Assessment Start: 06/24/25 09:21 Freq: Status: Active Protocol: WC.CLALYT Activity Type Activity Date Activity User E-sign Co-sign Detail Recorded Client Recorded Date Recorded By Document 06/24/25 09:23 MT [id number] 06/24/25 09:30 MT Document 06/26/25 08:18 ML [id number] 06/26/25 08:19 ML Document 07/01/25 08:25 ML [id number] 07/01/25 08:28 ML 06/24/25 06/26/25 07/01/25 09:23 08:18 08:25 WC - Today's Visit Information Type of service Follow-up Visit Nurse-only Follow-up Visit (Physician/LEAD DATABASE DEVELOPER Visit (Physician/LEAD DATABASE DEVELOPER ) ) Arrival Mode Ambulatory, Ambulatory, Walker Walker Walker Transfer Assistance None Accompanied by self Patient Identification Verified (Name & Yes Yes Yes ) Patient Requires Transmission-Based No No Precautions Safety Precautions Fall Prevention Finger Stick Blood Sugar(mg/dl) (if 154 indicated): Blood Sugar Done During this Visit Vital Signs Temperature (97.8 F-99.1 F) 98 F 96.1 F L Temperature Source Temporal Temporal Pulse Rate (60-100) 100 106 H Pulse Location Monitor Monitor Respiratory Rate (12-18) 18 16 Respiratory rate source Monitor Monitor Oxygen Delivery Method Room Air Blood Pressure (90/60-120/80) 157/82 H 143/98 H Blood Pressure Mean (mm Hg) 107 113 Source Monitor Monitor Position Semi-Fowlers Sitting Blood Pressure Location Left Arm Left Forearm History Since Last Visit- (Skip if this is Patient's initial visit) Have you changed medications since your No last visit? Any new allergies or adverse reactions No Had a fall/change in ADL's that may No increase risk of falls Signs or symptoms of abuse and/or No neglect since last visit Have you been in the hospital since your No last visit? Has dressing in place as prescribed Yes Yes Has compression in place as prescribed Yes Yes Has offloadiing in place as prescribed Yes Yes Experienced any changes in pain level or Yes No management Left Footwear Regular Shoe Right Footwear Regular Shoe Pain Scale: 0-10 Numeric Is Patient Pain Free? Yes Yes Yes WC - Nurse 1 - General Ulcer Measurement Start: 06/24/25 09:21 Freq: Status: Active Protocol: Activity Type Activity Date Activity User E-sign Co-sign Detail Recorded Client Recorded Date Recorded By Document 06/24/25 09:23 MT [id number] 06/24/25 09:30 MT Document 07/01/25 08:25 ML [id number] 07/01/25 08:28 ML 06/24/25 07/01/25 09:23 08:25 Wound Center Nurse 1 #4 Right Posterior Calf Cluster -Current Size (cm) - Length 0.1 3 -Current Size (cm) - Width 0.1 2 -Current Size (cm) - Depth 0.1 0.1 -Total Square Cm 0.01 6 -Date of Last Picture (Recall this 06/24/25 field) -Photo Taken Yes -Tunneling No -Undermining/Tunneling No -Circular Undermining No -Exudate Amt Medium Medium -Exudate Type Serous Serosanguineous -Wound Margin Thickened & Rolled Under -Granulation Amt Large (67-100%) Medium (34-66%) -Granulation Quality Pale,[place] -Necrosis Amt Small (1-33%) Medium (34-66%) -Necrotic Tissue Type Adherent Slough -Texture (Rachele-wound Skin Appearance) Assessed, Assessed Excoriation, Localized Edema -Moisture (Rachele-wound Skin Appearance) Assessed, Maceration, Weeping -Color (Rachele-wound Skin Appearance) Assessed, Assessed Erythema -Temperature (Rachele-wound Skin No Abnormality Appearance) (Pt Warm) -Tenderness on Palpation (Rachele-wound No No Skin Appearance) -Ulcer Cleansing Soap and Water Soap and Water -Foul Odor after Cleansing No -Anesthetic Used 5% Lidocaine 5% Lidocaine Gel Gel Right Calf (cm) 63 Right Ankle (cm) 30 Left Calf (cm) 60 Left Ankle (cm) 38 WC - Nurse 2 - General Ulcer CM Notes Start: 06/24/25 09:21 Freq: Status: Active Protocol: Activity Type Activity Date Activity User E-sign Co-sign Detail Recorded Client Recorded Date Recorded By Document 06/24/25 09:34 JF [id number] 06/24/25 09:35 JF Document 07/01/25 08:36 JF [id number] 07/01/25 08:37 JF 06/24/25 07/01/25 09:34 08:36 Wound Center Nurse 2 #4 Right Posterior Calf Cluster -Time 09:34 08:36 -Correct Patient Yes Yes -Correct Side, Site, Position Yes Yes -Correct Procedure Yes Yes -Procedure Performed Yes Yes -Type of Procedure Debridement Debridement -Clinical Debridement Subcutaneous Subcutaneous -Tissue Removed Subcutaneous Subcutaneous -Post Debridement (cm) - Length 4.5 4.5 -Post Debridement (cm) - Width 4 4.5 -Post Debridement (cm) - Depth 0.1 0.1 -Total Square (Post) (cm) 18.0 20.25 -Area of Debridement (cm) - Length 4.5 4.5 -Area of Debridement (cm) - Width 4.0 4.5 -Total Square (Area) (cm) 18.00 20.25 -Tunneling No No -Undermining/Tunneling No No -Circular Undermining No No -Wound/Ulcer Outcome Not Healed Not Healed -Ulcer Cleansing Rinsed/ Rinsed/ Irrigated with Irrigated with Saline Saline -Foul Odor after Cleansing No No -Bioengineered Tissue No No -Bleeding Controlled with Pressure Pressure -Treatment Response Procedure Procedure Tolerated Well Tolerated Well -Offloading No No -Debridement - Subq, 1st 20sq cm Yes Yes -Debridement, SubQ, ea addt'l 20sq cm 1 or part thereof Pain Scale: 0-10 Numeric Is Patient Pain Free? Yes Yes - Nurse 3 - General Ulcer D/C NN Start: 06/24/25 09:21 Freq: Status: Active Protocol: Activity Type Activity Date Activity User E-sign Co-sign Detail Recorded Client Recorded Date Recorded By Document 06/24/25 10:07 CP [id number] 06/24/25 10:09 CP Document 06/26/25 08:18 ML [id number] 06/26/25 08:19 ML 06/24/25 06/26/25 10:07 08:18 Wound Care Center Nurse 3 #4 Right Posterior Calf Cluster -Ulcer Cleansing Rinsed/ Soap and Water Irrigated with Saline -Primary Dressing Applied Optilok 8x12 -Other Dressing maribel -Other Covering bacitracin -Optilok 5x5 1/2 1 -Optilok 8x12 1 RLE -Multi-Layered Wrap Application Multi-Layer Multi-Layer Comp - Right ($ Comp - Right ($ ) ) -Multi-Layer Compression Right (Qty 2 1 applied) Pain Scale: 0-10 Numeric Is Patient Pain Free? Yes Yes WC - Visit Discharge Discharge Condition Stable Ambulatory Status Ambulatory, Walker Transportation Private Auto Clinical Summary of Care Provided Yes Assessment/Plan Assessment/Plan (1) Non-pressure chronic ulcer of other part of right lower leg with fat layer exposed: CODE(S): L97.812 - Non-pressure chronic ulcer of other 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 All findings were discussed with the patient. All questions were answered to the patient's satisfaction. Excisional debridement down to and including subcutaneous tissue with a number 5 mm dermal curette to the right posterior leg full-thickness wound done without incident. Predebridement measurement was 4.3 x 4.4 x 0.1 cm. Postdebridement measurements 4.5 x 4.5 x 0.1 cm. The right lower extremities were cleaned and patted dry. Silver alginate was applied followed by dry sterile dressing and 3M multilayer compression bandage was donned to right lower extremity. Patient will continue to do mechanical pumps. She will keep blood sugar well- controlled as discussed during her interview today. Patient will follow-up with Dr. Lord in 1 week. (2) Lymphedema, not elsewhere classified: CODE(S): I89.0 - Lymphedema, not elsewhere classified
--- NOTE | 2025-07-02 09:18 | WC ---
PHOTO-RLE 07/01/25
[2025-07-03 12:48] VITALS: BP 142/90; PULSE 104; RESP 15; TEMP 36.2
[2025-07-08 08:26] VITALS: BP 157/85; PULSE 110; RESP 15; TEMP 36.3
--- NOTE | 2025-07-08 09:22 | PN.PCM_ITS ---
History of Present Illness Date of Service: 07/08/25 Chief Complaint: Ulceration right posterior leg History of Wound: Ulceration right posterior leg Progress of Wound: Stable full-thickness wound posterior right calf/leg Subjective Subjective Patient is a 44-year-old diabetic female present to clinic today follow-up evaluation of posterior right leg full-thickness wound with application of multilayer compression bandage to the right lower extremity. Patient has been compliant leaving the dressing clean dry and intact. She has been following up with nursing visits. Today's blood sugar was 154 mg/dL. She is doing well has no pain. Denies trauma. Denies constitutional symptoms. No other pedal complaints at this time. Objective Data Objective Data Vital Signs: Vital Signs Temp Pulse Resp BP O2 Del Method 97.3 F L 110 H 15 157/85 H Room Air 07/08/25 08:26 07/08/25 08:26 07/08/25 08:26 07/08/25 08:26 06/24/25 09:23 Oxygen Delivery Method Room Air Physical Exam Narrative Vascular: DP and PT pulse palpable to the right lower extremity. CFT is brisk. Skin temp gradient is warm to warm from proximal ankle to distal digits of the right lower extremity. No focal increase is appreciated. No erythema is noted. +1 pitting edema appreciated to the right lower extremity, improving. Neurological: Light touch is intact. Protective station is diminished to the forefoot but reestablished at the midfoot and ankle. Dermatological: Evidence of full-thickness wound to the posterior right leg measuring 5.3 x 6.2 x 0.1 cm. Wound base is granular nature. No drainage. No maceration appreciated. No malodor. Negative probe to bone. Excisional debridement down to and including subcutaneous tissue with a number 5 mm dermal curette to the right posterior leg full-thickness wound done without incident. Predebridement measurement was 5.0x 6.1 x 0.1 cm. Postdebridement measurements 5.3 x 6.2 x 0.1 cm. Muscle skeletal: No pain to palpation to the right calf. No pain with calf compression. Debridement Note Debridement Note Debridement Free Text: Excisional debridement down to and including subcutaneous tissue with a number 5 mm dermal curette to the right posterior leg full- thickness wound done without incident. Predebridement measurement was 5.0x 6.1 x 0.1 cm. Postdebridement measurements 5.3 x 6.2 x 0.1 cm. Post-Debridement Measurements and Additional Note: Post-Debridement Measurements/Treatment WC - Nurse 1 - General Ulcer Assessment Start: 06/24/25 09:21 Freq: Status: Active Protocol: WC.CALLYT Activity Type Activity Date Activity User E-sign Co-sign Detail Recorded Client Recorded Date Recorded By Document 06/24/25 09:23 MT [id number] 06/24/25 09:30 MT Document 06/26/25 08:18 ML [id number] 06/26/25 08:19 ML Document 07/01/25 08:25 ML [id number] 07/01/25 08:28 ML Document 07/03/25 12:48 ML [id number] 07/03/25 12:49 ML Document 07/08/25 08:26 ML [id number] 07/08/25 08:28 ML 06/24/25 06/26/25 07/01/25 09:23 08:18 08:25 WC - Today's Visit Information Type of service Follow-up Visit Nurse-only Follow-up Visit (Physician/MERCHANDISE DISTRIBUTOR Visit (Physician/MERCHANDISE DISTRIBUTOR ) ) Arrival Mode Ambulatory, Ambulatory, Walker Walker Walker Transfer Assistance None Accompanied by self Patient Identification Verified (Name & Yes Yes Yes ) Patient Requires Transmission-Based No No Precautions Safety Precautions Fall Prevention Finger Stick Blood Sugar(mg/dl) (if 154 indicated): Blood Sugar Done During this Visit Vital Signs Temperature (97.8 F-99.1 F) 98 F 96.1 F L Temperature Source Temporal Temporal Pulse Rate (60-100) 100 106 H Pulse Location Monitor Monitor Respiratory Rate (12-18) 18 16 Respiratory rate source Monitor Monitor Oxygen Delivery Method Room Air Blood Pressure (90/60-120/80) 157/82 H 143/98 H Blood Pressure Mean (mm Hg) 107 113 Source Monitor Monitor Position Semi-Fowlers Sitting Blood Pressure Location Left Arm Left Forearm History Since Last Visit- (Skip if this is Patient's initial visit) Have you changed medications since your No last visit? Any new allergies or adverse reactions No Had a fall/change in ADL's that may No increase risk of falls Signs or symptoms of abuse and/or No neglect since last visit Have you been in the hospital since your No last visit? Has dressing in place as prescribed Yes Yes Has compression in place as prescribed Yes Yes Has offloadiing in place as prescribed Yes Yes Experienced any changes in pain level or Yes No management Left Footwear Regular Shoe Right Footwear Regular Shoe Pain Scale: 0-10 Numeric Is Patient Pain Free? Yes Yes Yes 07/03/25 07/08/25 12:48 08:26 - Today's Visit Information Type of service Nurse-only Follow-up Visit Visit (Physician/MERCHANDISE DISTRIBUTOR ) Arrival Mode Walker Ambulatory, Walker Transfer Assistance None None Accompanied by Patient Identification Verified (Name & Yes Yes ) Patient Requires Transmission-Based No No Precautions Safety Precautions Finger Stick Blood Sugar(mg/dl) (if indicated): Blood Sugar Vital Signs Temperature (97.8 F-99.1 F) 97.1 F L 97.3 F L Temperature Source Temporal Temporal Pulse Rate (60-100) 104 H 110 H Pulse Location Monitor Monitor Respiratory Rate (12-18) 15 15 Respiratory rate source Observation Observation Oxygen Delivery Method Blood Pressure (90/60-120/80) 142/90 H 157/85 H Blood Pressure Mean (mm Hg) 107 109 Source Monitor Monitor Position Sitting Sitting Blood Pressure Location Right Forearm Right Arm History Since Last Visit- (Skip if this is Patient's initial visit) Have you changed medications since your No No last visit? Any new allergies or adverse reactions No No Had a fall/change in ADL's that may No No increase risk of falls Signs or symptoms of abuse and/or No No neglect since last visit Have you been in the hospital since your No No last visit? Has dressing in place as prescribed Yes No Has compression in place as prescribed Yes No Has offloadiing in place as prescribed N/A No Experienced any changes in pain level or No No management Left Footwear Right Footwear Pain Scale: 0-10 Numeric Is Patient Pain Free? Yes Yes - Nurse 1 - General Ulcer Measurement Start: 06/24/25 09:21 Freq: Status: Active Protocol: Activity Type Activity Date Activity User E-sign Co-sign Detail Recorded Client Recorded Date Recorded By Document 06/24/25 09:23 MT [id number] 06/24/25 09:30 MT Document 07/01/25 08:25 ML [id number] 07/01/25 08:28 ML Document 07/08/25 08:26 ML [id number] 07/08/25 08:28 ML 06/24/25 07/01/25 07/08/25 09:23 08:25 08:26 Wound Center Nurse 1 #4 Right Posterior Calf Cluster -Current Size (cm) - Length 0.1 3 4 -Current Size (cm) - Width 0.1 2 3.5 -Current Size (cm) - Depth 0.1 0.1 0.1 -Total Square Cm 0.01 6 14.0 -Date of Last Picture (Recall this 06/24/25 field) -Photo Taken Yes -Tunneling No -Undermining/Tunneling No -Circular Undermining No -Exudate Amt Medium Medium Large -Exudate Type Serous Serosanguineous Yellow/Green -Wound Margin Thickened & Rolled Under -Granulation Amt Large (67-100%) Medium (34-66%) -Granulation Quality Pale,[place] -Slough/Fibrin No -Necrosis Amt Small (1-33%) Medium (34-66%) None Present (0 %) -Necrotic Tissue Type Adherent Slough Adherent Slough -Texture (Rachele-wound Skin Appearance) Assessed, Assessed Assessed Excoriation, Localized Edema -Moisture (Rachele-wound Skin Appearance) Assessed, Assessed Maceration, Weeping -Color (Rachele-wound Skin Appearance) Assessed, Assessed Assessed Erythema -Temperature (Rachele-wound Skin No Abnormality No Abnormality Appearance) (Pt Warm) (Pt Warm) -Tenderness on Palpation (Rachele-wound No No No Skin Appearance) -Ulcer Cleansing Soap and Water Soap and Water Soap and Water -Foul Odor after Cleansing No No -Anesthetic Used 5% Lidocaine 5% Lidocaine 5% Lidocaine Gel Gel Gel Right Calf (cm) 63 65 Right Ankle (cm) 30 42 Left Calf (cm) 60 Left Ankle (cm) 38 WC - Nurse 2 - General Ulcer CM Notes Start: 06/24/25 09:21 Freq: Status: Active Protocol: Activity Type Activity Date Activity User E-sign Co-sign Detail Recorded Client Recorded Date Recorded By Document 06/24/25 09:34 RUBA [id number] 06/24/25 09:35 JF Document 07/01/25 08:36 JF [id number] 07/01/25 08:37 JF Document 07/08/25 08:44 RUBA [id number] 07/08/25 08:47 JF 06/24/25 07/01/25 07/08/25 09:34 08:36 08:44 Wound Center Nurse 2 #4 Right Posterior Calf Cluster -Time 09:34 08:36 08:45 -Correct Patient Yes Yes Yes -Correct Side, Site, Position Yes Yes Yes -Correct Procedure Yes Yes Yes -Procedure Performed Yes Yes Yes -Type of Procedure Debridement Debridement Debridement -Clinical Debridement Subcutaneous Subcutaneous Subcutaneous -Tissue Removed Subcutaneous Subcutaneous Subcutaneous -Post Debridement (cm) - Length 4.5 4.5 5.3 -Post Debridement (cm) - Width 4 4.5 6.2 -Post Debridement (cm) - Depth 0.1 0.1 0.1 -Total Square (Post) (cm) 18.0 20.25 32.86 -Area of Debridement (cm) - Length 4.5 4.5 5.3 -Area of Debridement (cm) - Width 4.0 4.5 6.2 -Total Square (Area) (cm) 18.00 20.25 32.86 -Tunneling No No No -Undermining/Tunneling No No No -Circular Undermining No No No -Wound/Ulcer Outcome Not Healed Not Healed Not Healed -Ulcer Cleansing Rinsed/ Rinsed/ Rinsed/ Irrigated with Irrigated with Irrigated with Saline Saline Saline -Foul Odor after Cleansing No No No -Bioengineered Tissue No No No -Bleeding Controlled with Pressure Pressure Pressure -Treatment Response Procedure Procedure Procedure Tolerated Well Tolerated Well Tolerated Well -Offloading No No No -Debridement - Subq, 1st 20sq cm Yes Yes Yes -Debridement, SubQ, ea addt'l 20sq cm 1 1 or part thereof Pain Scale: 0-10 Numeric Is Patient Pain Free? Yes Yes Yes WC - Nurse 3 - General Ulcer D/C NN Start: 06/24/25 09:21 Freq: Status: Active Protocol: Activity Type Activity Date Activity User E-sign Co-sign Detail Recorded Client Recorded Date Recorded By Document 06/24/25 10:07 CP [id number] 06/24/25 10:09 CP Document 06/26/25 08:18 ML [id number] 06/26/25 08:19 ML Document 07/01/25 08:52 ML [id number] 07/01/25 08:54 ML Document 07/03/25 12:48 ML [id number] 07/03/25 12:49 ML Document 07/08/25 09:05 MT [id number] 07/08/25 09:13 MT 06/24/25 06/26/25 07/01/25 10:07 08:18 08:52 Wound Care Center Nurse 3 #4 Right Posterior Calf Cluster -Ulcer Cleansing Rinsed/ Soap and Water Rinsed/ Irrigated with Irrigated with Saline Saline -Foul Odor after Cleansing -Negative Pressure Wound Therapy -Primary Dressing Applied Optilok 8x12 Optilok 5x5 1/2 ,[place] -Other Dressing maribel -Primary Dressing Covered/Secured with -Other Covering bacitracin -Optilok 5x5 1/2 1 1 -Optilok 8x12 1 -[place] 1 RLE -Lotion applied to leg before compression wrap -Multi-Layered Wrap Application Multi-Layer Multi-Layer Multi-Layer Comp - Right ($ Comp - Right ($ Comp - Right ($ ) ) ) -Multi-Layer Compression Left (Qty applied) -Multi-Layer Compression Right (Qty 2 1 1 applied) Pain Scale: 0-10 Numeric Is Patient Pain Free? Yes Yes Yes WC - Visit Discharge Discharge Condition Stable Ambulatory Status Ambulatory, Walker Transportation Private Auto Medication Reconcilliation completed & provided to patient/care provider Clinical Summary of Care Provided Yes Notes: 07/03/25 07/08/25 12:48 09:05 Wound Care Center Nurse 3 #4 Right Posterior Calf Cluster -Ulcer Cleansing -Foul Odor after Cleansing No -Negative Pressure Wound Therapy N/A -Primary Dressing Applied Optilok 5x5 1/2 ,[place] -Other Dressing -Primary Dressing Covered/Secured with Dry Gauze & Roll Gauze, Secured with Tape -Other Covering -Optilok 5x5 1/2 1 -Optilok 8x12 -[place] 1 RLE -Lotion applied to leg before No compression wrap -Multi-Layered Wrap Application Multi-Layer Multi-Layer Comp - Left ($) Comp - Right ($ ) -Multi-Layer Compression Left (Qty 1 applied) -Multi-Layer Compression Right (Qty 1 applied) Pain Scale: 0-10 Numeric Is Patient Pain Free? 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 All findings were discussed with the patient. All questions were answered to the patient's satisfaction. Excisional debridement down to and including subcutaneous tissue with a number 5 mm dermal curette to the right posterior leg full-thickness wound done without incident. Predebridement measurement was 5.0x 6.1 x 0.1 cm. Postdebridement measurements 5.3 x 6.2 x 0.1 cm. The right lower extremities were cleaned and patted dry. Silver alginate was applied followed by dry sterile dressing and 3M multilayer compression bandage was donned to right lower extremity. Patient will follow-up for nursing visits. She will continue to manage strict blood sugar control. Patient will follow-up with Dr. Lord in 2 week. (2) Lymphedema, not elsewhere classified: CODE(S): I89.0 - Lymphedema, not elsewhere classified
[2025-07-10 13:07] VITALS: BP 140/92; PULSE 102; RESP 15; TEMP 35.8
[2025-07-15 08:34] VITALS: BP 169/84; PULSE 110; RESP 18; TEMP 36.8
[2025-07-17 12:54] VITALS: BP 147/85; PULSE 98; RESP 18; TEMP 36.1
== END 2025-07-17 23:59 | disposition home or self-care (01) ==
LOC: WC 13:00
PROVIDERS: PCP Internal Medicine; Referring Provider Internal Medicine; Visit Provider Podiatrist Foot & Ankle Surgery
DX: E11.622 Type 2 diabetes mellitus with other skin ulcer (principal); L97.812 Non-pressure chronic ulcer of other part of right lower leg with fat layer exposed; J44.89 Other specified chronic obstructive pulmonary disease; E11.51 Type 2 diabetes mellitus with diabetic peripheral angiopathy without gangrene; F17.210 Nicotine dependence, cigarettes, uncomplicated; K21.9 Gastro-esophageal reflux disease without esophagitis; Z79.84 Long term (current) use of oral hypoglycemic drugs; M79.89 Other specified soft tissue disorders
CPT/HCPCS: 11042; 11045; 29580; 29581; 82962; 99213; G0463

== ENCOUNTER 2025-08-12 13:30 | Outpatient (RCR) | payer MEDICAID, SELFPAY ==
[2025-07-22 08:51] VITALS: BP 146/87; PULSE 102; RESP 18; TEMP 36.1
--- NOTE | 2025-07-22 09:48 | PN.PCM_ITS ---
History of Present Illness Date of Service: 07/22/25 Chief Complaint: Ulceration right posterior leg History of Wound: Ulceration right posterior leg Progress of Wound: Slowly healing full-thickness wound posterior right leg with increased drainage Subjective Subjective Patient is a 44-year-old diabetic female presenting to wound care center today follow-up evaluation of full-thickness wound to posterior right leg secondary to swelling and drainage. Patient's A1c is 6.3%. She is continue to comply with strict blood sugar control. She is following up with nursing visits for multilayer compression bandage dressing changes. She admits to no pain to the full-thickness wound. She does not smoke. She denies trauma. Denies constitutional symptoms. No other pedal complaints at this time Objective Data Objective Data Vital Signs: Vital Signs Temp Pulse Resp BP 97 F L 102 H 18 146/87 H 07/22/25 08:51 07/22/25 08:51 07/22/25 08:51 07/22/25 08:51 Physical Exam Narrative Vascular: DP and PT pulse palpable to the right lower extremity. CFT is brisk. Skin temp gradient is warm to warm from proximal ankle to distal digits of the right lower extremity. No focal increase is appreciated. Blanchable erythema to periwound. +1 pitting edema appreciated to the right lower extremity, improving. Neurological: Light touch is intact. Protective station is diminished to the f orefoot but reestablished at the midfoot and ankle. Dermatological: Evidence of full-thickness wound to the posterior right leg measuring 5.2 x 7.6 x 0.1 cm wound base is granular nature. Mild drainage. Macerated periwound. Negative probe to bone. Blanchable erythema to periwound. Excisional debridement down to and including subcutaneous tissue with a number 5 mm dermal curette to the right posterior leg full-thickness wound done without incident. Predebridement measurement was 5.0 x 7.5 x 0.1 cm. Postdebridement measurements 5.2 x 7.6 x 0.1 cm with Muscle skeletal: No pain to palpation to the right calf. No pain with calf compression. Debridement Note Debridement Note Debridement Free Text: Excisional debridement down to and including subcutaneous tissue with a number 5 mm dermal curette to the right posterior leg full- thickness wound done without incident. Predebridement measurement was 5.0 x 7.5 x 0.1 cm. 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 Any new allergies or adverse reactions No Had a fall/change in ADL's that may No increase risk of falls Signs or symptoms of abuse and/or No neglect since last visit Have you been in the hospital since your No last visit? Has dressing in place as prescribed Yes Has compression in place as prescribed Yes Has offloadiing in place as prescribed N/A Experienced any changes in pain level or No management Left Footwear Regular Shoe Right Footwear Regular Shoe Pain Scale: 0-10 Numeric Is Patient Pain Free? No - Nurse 1 - General Ulcer Measurement Start: 07/22/25 08:51 Freq: Status: Active Protocol: Activity Type Activity Date Activity User E-sign Co-sign Detail Recorded Client Recorded Date Recorded By Document 07/22/25 08:51 [id number] 07/22/25 09:02 07/22/25 08:51 Wound Center Nurse 1 #4 Right Posterior Calf Cluster -Current Size (cm) - Length 5 -Current Size (cm) - Width 3 -Current Size (cm) - Depth 0.2 -Total Square Cm 15 -Date of Last Picture (Recall this 07/22/25 field) -Photo Taken Yes -Epithelialization Small 1-33% -Tunneling No -Undermining/Tunneling No -Exudate Amt Medium -Exudate Type Sanguineous -Wound Margin Flat & Intact -Granulation Amt Large (67-100%) -Granulation Quality [place] -Necrosis Amt None Present (0 %) -Structure Exposed N/A -Texture (Rachele-wound Skin Appearance) No Abnormality -Moisture (Rachele-wound Skin Appearance) No Abnormality -Color (Rachele-wound Skin Appearance) No Abnormality -Temperature (Rachele-wound Skin No Abnormality Appearance) (Pt Warm) -Ulcer Cleansing Rinsed/ Irrigated with Saline -Foul Odor after Cleansing No -Anesthetic Used 4% Lidocaine Solution Left Calf (cm) 65 Left Ankle (cm) 32 - Nurse 2 - General Ulcer CM Notes Start: 07/22/25 08:51 Freq: Status: Active Protocol: Activity Type Activity Date Activity User E-sign Co-sign Detail Recorded Client Recorded Date Recorded By Document 07/22/25 09:16 [id number] 07/22/25 09:21 07/22/25 09:16 Wound Center Nurse 2 #4 Right Posterior Calf Cluster -Time 09:21 -Correct Patient Yes -Correct Side, Site, Position Yes -Correct Procedure Yes -Procedure Performed Yes -Type of Procedure Debridement -Clinical Debridement Subcutaneous -Tissue Removed Subcutaneous -Post Debridement (cm) - Length 5.2 -Post Debridement (cm) - Width 7.6 -Post Debridement (cm) - Depth 0.1 -Total Square (Post) (cm) 39.52 -Area of Debridement (cm) - Length 5.2 -Area of Debridement (cm) - Width 7.6 -Total Square (Area) (cm) 39.52 -Tunneling No -Undermining/Tunneling No -Circular Undermining No -Wound/Ulcer Outcome Not Healed -Ulcer Cleansing Rinsed/ Irrigated with Saline -Foul Odor after Cleansing No -Bioengineered Tissue No -Bleeding Controlled with Pressure -Treatment Response Procedure Tolerated Well -Offloading No -Debridement - Subq, 1st 20sq cm Yes -Debridement, SubQ, ea addt'l 20sq cm 1 or part thereof Pain Scale: 0-10 Numeric Is Patient Pain Free? Yes - Nurse 3 - General Ulcer D/C NN Start: 07/22/25 08:51 Freq: Status: Active Protocol: Activity Type Activity Date Activity User E-sign Co-sign Detail Recorded Client Recorded Date Recorded By Document 07/22/25 09:44 [email or web address] [id number] 07/22/25 09:45 [email or web address] 07/22/25 09:44 Wound Care Center Nurse 3 #4 Right Posterior Calf Cluster -Ulcer Cleansing Rinsed/ Irrigated with Saline -Primary Dressing Applied Aquacel AG 4x4, Optilok 6.5x10 -Aquacel AG 4x4 1 -Optilok 6.5x10 1 RLE -Multi-Layered Wrap Application Multi-Layer Comp - Right ($ ) -Multi-Layer Compression Right (Qty 1 applied) Treatment Response Procedure Tolerated Well Pain Scale: 0-10 Numeric Is Patient Pain Free? Yes WC - Visit Discharge Discharge Condition Stable Ambulatory Status Ambulatory, Walker Transportation Private Auto Medication Reconcilliation completed & No provided to patient/care provider Clinical Summary of Care Provided Yes Assessment/Plan Assessment/Plan (1) Non-pressure chronic ulcer of other part of right lower leg with fat layer exposed: CODE(S): L97.812 - Non-pressure chronic ulcer of other 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 All findings were discussed with the patient. All questions were answered to the patient's satisfaction. Excisional debridement down to and including subcutaneous tissue with a number 5 mm dermal curette to the right posterior leg full-thickness wound done without incident. Predebridement measurement was 5.0 x 7.5 x 0.1 cm. Postdebridement measurements 5.2 x 7.6 x 0.1 cm. The right lower extremity is white plain and patted dry. Culture was taken. The patient will be placed on Keflex 500 mg 3 times daily for 2 weeks. Will adjust antibiotics based on return of culture and sensitivity as needed. Full-thickness wound was dressed with silver alginate dry sterile dressing superabsorber and 3M multilayer compression bandage. Patient will follow-up with nursing visits for dressing changes. Patient will continue her strict blood sugar control regiment. No plan for surgical intervention at this time. Patient will follow-up with Dr. Lord in 1 week. (2) Lymphedema, not elsewhere classified: CODE(S): I89.0 - Lymphedema, not elsewhere classified
--- NOTE | 2025-07-23 12:02 | WC ---
PHOTO-RIGHT POST CALF 07/22/25
[2025-07-27 09:50] VITALS: BP 171/93; PULSE 115; RESP 18; TEMP 36.3
[2025-07-29 08:02] VITALS: BP 163/95; PULSE 103; RESP 16; TEMP 35.8
--- NOTE | 2025-07-29 08:55 | PN.PCM_ITS ---
History of Present Illness Date of Service: 07/29/25 Chief Complaint: Ulceration right posterior leg History of Wound: Ulceration right posterior leg Progress of Wound: Slowly healing full-thickness wound posterior right leg with increased drainage Subjective Subjective Patient is a 44-year-old diabetic female presenting to the wound care center today follow-up evaluation of full-thickness wound to the posterior right leg. Patient has been compliant with dressing changes and following up with nursing visits for change in the multilayer compression bandage. She admitts pain is improved. She is taking the oral antibiotic as prescribed. Review of the patient's culture and sensitivities show resistant to the gram-negative species of bacteria that was grown. Patient will be referred to infectious disease for consultation and antibiotic treatment. Otherwise the patient's blood sugar is stable measuring at 143 mg/dL today. She denies any trauma. Denies constitutional symptoms. No other pedal complaints at this time. Objective Data Objective Data Vital Signs: Vital Signs Temp Pulse Resp BP O2 Del Method 96.5 F L 103 H 16 163/95 H Room Air 07/29/25 08:02 07/29/25 08:02 07/29/25 08:02 07/29/25 08:02 07/29/25 08:02 Oxygen Delivery Method Room Air Lab / Micro Data Micro: Microbiology 07/22/25 09:20 Wound - Leg, Right Gram Stain - Final 07/22/25 09:20 Wound - Leg, Right Wound Culture - Final Pseudomonas aeruginosa Raoultella planticola Streptococcus agalactiae (B) 07/22/25 09:20 Wound - Leg, Right Anaerobic Culture - Final No anaerobic bacteria isolated. Physical Exam Narrative Vascular: DP and PT pulse palpable to the right lower extremity. CFT is brisk. Skin temp gradient is warm to warm from proximal ankle to distal digits of the right lower extremity. No focal increase is appreciated. No erythema. Nonpitting edema appreciated the right lower extremity. Neurological: Light touch is intact. Patient is responding to painful stimuli. Dermatological: Evidence of full-thickness wound to the posterior right leg measuring 4.8 x 8.5 x 0.1 cm. Wound base is granular nature. No drainage. Macerated periwound, improving. Negative probe to bone. No erythema. Excisional debridement down to and including subcutaneous tissue with a number 5 mm dermal curette to the right posterior leg full-thickness wound done without incident. Predebridement measurement was 4.7 x 8.3 x 0.1 cm. Postdebridement measurements 4.8 x 8.5 x 0.1 cm. Muscle skeletal: No pain to palpation to the right calf. No pain with calf compression. Debridement Note Debridement Note Debridement Free Text: Excisional debridement down to and including subcutaneous tissue with a number 5 mm dermal curette to the right posterior leg full- thickness wound done without incident. Predebridement measurement was 4.7 x 8.3 x 0.1 cm. Postdebridement measurements 4.8 x 8.5 x 0.1 cm. 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 ) Arrival Mode Ambulatory, Ambulatory, Walker Walker Patient Identification Verified (Name & Yes Yes ) Patient Requires Transmission-Based No No Precautions Safety Precautions Fall Prevention Vital Signs Temperature (97.8 F-99.1 F) 97 F L 97.3 F L 96.5 F L Temperature Source Temporal Temporal Temporal Pulse Rate (60-100) 102 H 115 H 103 H Pulse Location Monitor Monitor Monitor Respiratory Rate (12-18) 18 18 16 Respiratory rate source Observation Observation Observation Oxygen Delivery Method Room Air Room Air Blood Pressure (90/60-120/80) 146/87 H 171/93 H 163/95 H Blood Pressure Mean (mm Hg) 106 119 117 Source Monitor Monitor Monitor Position Sitting Sitting Sitting Blood Pressure Location Left Forearm Right Arm Left Arm History Since Last Visit- (Skip if this is Patient's initial visit) Have you changed medications since your No No No last visit? Any new allergies or adverse reactions No No No Had a fall/change in ADL's that may No No No increase risk of falls Signs or symptoms of abuse and/or No No No neglect since last visit Have you been in the hospital since your No No No last visit? Has dressing in place as prescribed Yes No Yes Has compression in place as prescribed Yes No Yes Has offloadiing in place as prescribed N/A No N/A Experienced any changes in pain level or No No No management Left Footwear Regular Shoe Regular Shoe Slipper Right Footwear Regular Shoe Regular Shoe Slipper Pain Scale: 0-10 Numeric Is Patient Pain Free? No Yes Yes WC - Nurse 1 - General Ulcer Measurement Start: 07/22/25 08:51 Freq: Status: Active Protocol: Activity Type Activity Date Activity User E-sign Co-sign Detail Recorded Client Recorded Date Recorded By Document 07/22/25 08:51 CP [id number] 07/22/25 09:02 CP Document 07/29/25 08:02 TS [id number] 07/29/25 08:10 TS 07/22/25 07/29/25 08:51 08:02 Wound Center Nurse 1 #4 Right Posterior Calf Cluster -Combined with other wound No -Current Size (cm) - Length 5 5 -Current Size (cm) - Width 3 5.7 -Current Size (cm) - Depth 0.2 0.1 -Total Square Cm 15 28.5 -Date of Last Picture (Recall this 07/22/25 07/29/25 field) -Photo Taken Yes Yes -Epithelialization Small 1-33% -Tunneling No No -Undermining/Tunneling No No -Circular Undermining No -Exudate Amt Medium Large -Exudate Type Sanguineous Serous -Wound Margin Flat & Intact Distinct, Outline Attached -Granulation Amt Large (67-100%) Medium (34-66%) -Granulation Quality Ken Caryl Ken Caryl,Red -Slough/Fibrin No -Necrosis Amt None Present (0 %) -Structure Exposed N/A None/Limited to Skin Breakdown -Texture (Rachele-wound Skin Appearance) No Abnormality Assessed, Localized Edema -Moisture (Rachele-wound Skin Appearance) No Abnormality Assessed, Weeping -Color (Rachele-wound Skin Appearance) No Abnormality Assessed -Temperature (Rachele-wound Skin No Abnormality Appearance) (Pt Warm) -Ulcer Cleansing Rinsed/ Soap and Water Irrigated with Saline -Foul Odor after Cleansing No No -Anesthetic Used 4% Lidocaine 5% Lidocaine Solution Gel Point of measurement (cm from the medial 57 instep) Point of Measurement (cm from the medial 31 instep) Left Calf (cm) 65 Left Ankle (cm) 32 WC - Nurse 2 - General Ulcer CM Notes Start: 07/22/25 08:51 Freq: Status: Active Protocol: Activity Type Activity Date Activity User E-sign Co-sign Detail Recorded Client Recorded Date Recorded By Document 07/22/25 09:16 [id number] 07/22/25 09:21 Document 07/29/25 08:25 [id number] 07/29/25 08:28 07/22/25 07/29/25 09:16 08:25 Wound Center Nurse 2 #4 Right Posterior Calf Cluster -Time 09:21 08:25 -Correct Patient Yes Yes -Correct Side, Site, Position Yes Yes -Correct Procedure Yes Yes -Procedure Performed Yes Yes -Type of Procedure Debridement Debridement -Clinical Debridement Subcutaneous Subcutaneous -Tissue Removed Subcutaneous Subcutaneous -Post Debridement (cm) - Length 5.2 4.8 -Post Debridement (cm) - Width 7.6 8.5 -Post Debridement (cm) - Depth 0.1 0.1 -Total Square (Post) (cm) 39.52 40.80 -Area of Debridement (cm) - Length 5.2 4.8 -Area of Debridement (cm) - Width 7.6 8.5 -Total Square (Area) (cm) 39.52 40.80 -Tunneling No No -Undermining/Tunneling No No -Circular Undermining No No -Wound/Ulcer Outcome Not Healed Not Healed -Ulcer Cleansing Rinsed/ Rinsed/ Irrigated with Irrigated with Saline Saline -Foul Odor after Cleansing No No -Bioengineered Tissue No No -Bleeding Controlled with Pressure Pressure -Treatment Response Procedure Procedure Tolerated Well Tolerated Well -Offloading No No -Debridement - Subq, 1st 20sq cm Yes Yes -Debridement, SubQ, ea addt'l 20sq cm 1 or part thereof Pain Scale: 0-10 Numeric Is Patient Pain Free? Yes Yes WC - Nurse 3 - General Ulcer D/C NN Start: 07/22/25 08:51 Freq: Status: Active Protocol: Activity Type Activity Date Activity User E-sign Co-sign Detail Recorded Client Recorded Date Recorded By Document 07/22/25 09:44 RB [id number] 07/22/25 09:45 RB Document 07/27/25 09:50 TS [id number] 07/27/25 10:10 TS Document 07/29/25 08:43 TS [id number] 07/29/25 08:44 TS 07/22/25 07/27/25 07/29/25 09:44 09:50 08:43 Wound Care Center Nurse 3 #4 Right Posterior Calf Cluster -Ulcer Cleansing Rinsed/ Soap and Water Rinsed/ Irrigated with Irrigated with Saline Saline -Primary Dressing Applied Aquacel AG 4x4, Optilok 6.5x10, Optilok 5x5 1/2 Optilok 6.5x10 Silvercel ,Silvercel -Aquacel AG 4x4 1 -Optilok 5x5 1/2 1 -Optilok 6.5x10 1 1 -Silvercel 1 1 RLE -Lotion applied to leg before Yes Yes compression wrap -Multi-Layered Wrap Application Multi-Layer Multi-Layer Comp - Right ($ Comp - Right ($ ) ) -Multi-Layer Compression Right (Qty 1 1 1 applied) Treatment Response Procedure Tolerated Well Pain Scale: 0-10 Numeric Is Patient Pain Free? Yes Yes Yes WC - Visit Discharge Discharge Condition Stable Stable Stable Ambulatory Status Ambulatory, Walker Walker Walker Transportation Private Auto Private Auto Medication Reconcilliation completed & No No No provided to patient/care provider Clinical Summary of Care Provided Yes Yes Yes Assessment/Plan Assessment/Plan (1) Non-pressure chronic ulcer of other part of right lower leg with fat layer exposed: CODE(S): L97.812 - Non-pressure chronic ulcer of other 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 All findings were discussed with the patient. All questions were answered to the patient's satisfaction. Excisional debridement down to and including subcutaneous tissue with a number 5 mm dermal curette to the right posterior leg full-thickness wound done without incident. Predebridement measurement was 4.7 x 8.3 x 0.1 cm. Postdebridement measurements 4.8 x 8.5 x 0.1 cm. Right lower extremity was cleaned and patted dry. Silver alginate followed by dry sterile dressing superabsorber and 3M mult ilayer compression bandage was donned to the right lower extremity. Patient will follow-up with nursing visits on Sunday or Sunday. Patient will have a referral sent to infectious disease for evaluation due to the resistant antibiotic growth for the gram-negative species that was obtained from her culture and sensitivity. Patient will continue strict blood sugar control. Patient will follow-up with Dr. Lord in 1 week. (2) Lymphedema, not elsewhere classified: CODE(S): I89.0 - Lymphedema, not elsewhere classified
--- NOTE | 2025-07-30 09:02 | WC ---
PHOTO-LEFT POST CALF 07/29/25
[2025-07-31 12:46] VITALS: BP 153/86; PULSE 87; RESP 17; TEMP 36.4
[2025-08-05 13:19] VITALS: BP 187/111; PULSE 102; RESP 18; TEMP 36
--- NOTE | 2025-08-05 15:45 | PN.PCM_ITS ---
History of Present Illness Date of Service: 08/05/25 Chief Complaint: Ulceration right posterior leg History of Wound: Ulceration right posterior leg Progress of Wound: Slowly healing full-thickness wound posterior right leg with increased drainage Subjective Subjective Patient is a 44-year-old diabetic female presenting to clinic today for evaluation of full-thickness tear of the posterior right calf. She has been compliant with leaving the multilayer compression bandage to right lower extremity clean dry and intact. Blood sugar well-controlled. Denies any pain to the right lower extremity. Denies trauma. Denies constitutional symptoms. No pain complaints at this time. Objective Data Objective Data Vital Signs: Vital Signs Temp Pulse Resp BP O2 Del Method 96.8 F L 102 H 18 187/111 H Room Air 08/05/25 13:19 08/05/25 13:19 08/05/25 13:19 08/05/25 13:19 08/05/25 13:19 Oxygen Delivery Method Room Air Lab / Micro Data Micro: Microbiology 07/22/25 09:20 Wound - Leg, Right Gram Stain - Final 07/22/25 09:20 Wound - Leg, Right Wound Culture - Final Pseudomonas aeruginosa Raoultella planticola Streptococcus agalactiae (B) 07/22/25 09:20 Wound - Leg, Right Anaerobic Culture - Final No anaerobic bacteria isolated. Physical Exam Narrative Vascular: DP and PT pulse palpable to the right lower extremity. CFT is brisk. Skin temp gradient is warm to warm from proximal ankle to distal digits of the right lower extremity. No focal increase is appreciated. No erythema. Nonpitting edema appreciated the right lower extremity. Neurological: Light touch is intact. Patient is responding to painful stimuli. Dermatological: Evidence of full-thickness wound to the posterior right leg measuring 5.2 x 7.0 x 0.1 cm. Wound base is granular nature. No drainage. Macerated periwound, improving. Negative probe to bone. No erythema. Excisional debridement down to and including subcutaneous tissue with a number 5 mm dermal curette to the right posterior leg full-thickness wound done without incident. Predebridement measurement was 5.2 x 7.0 x 0.1 cm. Postdebridement measurements 5.2 x 7.0 x 0.1 cm. Muscle skeletal: No pain to palpation to the right calf. No pain with calf compression. Debridement Note Debridement Note Debridement Free Text: Excisional debridement down to and including subcutaneous tissue with a number 5 mm dermal curette to the right posterior leg full- thickness wound done without incident. Predebridement measurement was 5.2 x 7.0 x 0.1 cm. Postdebridement measurements 5.2 x 7.0 x 0.1 cm. Post-Debridement Measurements and Additional Note: Post-Debridement Measurements/Treatment WC - Nurse 1 - General Ulcer Assessment Start: 07/22/25 08:51 Freq: Status: Active Protocol: WATSON Activity Type Activity Date Activity User E-sign Co-sign Detail Recorded Client Recorded Date Recorded By Document 07/22/25 08:51 CP [id number] 07/22/25 09:02 CP Document 07/27/25 09:50 TS [id number] 07/27/25 10:10 TS Document 07/29/25 08:02 TS [id number] 07/29/25 08:10 TS Document 07/31/25 12:46 TS [id number] 07/31/25 12:50 TS Document 08/05/25 13:19 GM [id number] 08/05/25 13:23 GM 07/22/25 07/27/25 07/29/25 08:51 09:50 08:02 - Today's Visit Information Type of service Follow-up Visit Initial Visit (Physician/[employer] ) Arrival Mode Ambulatory, Ambulatory, Walker Walker Patient Identification Verified (Name & Yes Yes ) Patient Requires Transmission-Based No No Precautions Safety Precautions Fall Prevention Vital Signs Temperature (97.8 F-99.1 F) 97 F L 97.3 F L 96.5 F L Temperature Source Temporal Temporal Temporal Pulse Rate (60-100) 102 H 115 H 103 H Pulse Location Monitor Monitor Monitor Respiratory Rate (12-18) 18 18 16 Respiratory rate source Observation Observation Observation Oxygen Delivery Method Room Air Room Air Blood Pressure (90/60-120/80) 146/87 H 171/93 H 163/95 H Blood Pressure Mean (mm Hg) 106 119 117 Source Monitor Monitor Monitor Position Sitting Sitting Sitting Blood Pressure Location Left Forearm Right Arm Left Arm History Since Last Visit- (Skip if this is Patient's initial visit) Have you changed medications since your No No No last visit? Any new allergies or adverse reactions No No No Had a fall/change in ADL's that may No No No increase risk of falls Signs or symptoms of abuse and/or No No No neglect since last visit Have you been in the hospital since your No No No last visit? Has dressing in place as prescribed Yes No Yes Has compression in place as prescribed Yes No Yes Has offloadiing in place as prescribed N/A No N/A Experienced any changes in pain level or No No No management Left Footwear Regular Shoe Regular Shoe Slipper Right Footwear Regular Shoe Regular Shoe Slipper Pain Scale: 0-10 Numeric Is Patient Pain Free? No Yes Yes 07/31/25 08/05/25 12:46 13:19 - Today's Visit Information Type of service Nurse-only Follow-up Visit Visit (Physician/[employer] ) Arrival Mode Walker Ambulatory, Walker Patient Identification Verified (Name & Yes Yes ) Patient Requires Transmission-Based No Precautions Safety Precautions Fall Prevention Vital Signs Temperature (97.8 F-99.1 F) 97.5 F L 96.8 F L Temperature Source Oral Temporal Pulse Rate (60-100) 87 102 H Pulse Location Monitor Monitor Respiratory Rate (12-18) 17 18 Respiratory rate source Observation Observation Oxygen Delivery Method Room Air Room Air Blood Pressure (90/60-120/80) 153/86 H 187/111 H Blood Pressure Mean (mm Hg) 108 136 Source Monitor Monitor Position Sitting Supine Blood Pressure Location Left Arm Left Arm History Since Last Visit- (Skip if this is Patient's initial visit) Have you changed medications since your No No last visit? Any new allergies or adverse reactions No No Had a fall/change in ADL's that may No No increase risk of falls Signs or symptoms of abuse and/or No No neglect since last visit Have you been in the hospital since your No No last visit? Has dressing in place as prescribed Yes Yes Has compression in place as prescribed Yes Yes Has offloadiing in place as prescribed N/A N/A Experienced any changes in pain level or No No management Left Footwear Regular Shoe Right Footwear Regular Shoe Pain Scale: 0-10 Numeric Is Patient Pain Free? Yes Yes - Nurse 1 - General Ulcer Measurement Start: 07/22/25 08:51 Freq: Status: Active Protocol: Activity Type Activity Date Activity User E-sign Co-sign Detail Recorded Client Recorded Date Recorded By Document 07/22/25 08:51 CP [id number] 07/22/25 09:02 CP Document 07/29/25 08:02 TS [id number] 07/29/25 08:10 TS Document 08/05/25 13:19 [id number] 08/05/25 13:23 07/22/25 07/29/25 08/05/25 08:51 08:02 13:19 Wound Center Nurse 1 #4 Right Posterior Calf Cluster -Combined with other wound No -Current Size (cm) - Length 5 5 4.0 -Current Size (cm) - Width 3 5.7 6.2 -Current Size (cm) - Depth 0.2 0.1 0.1 -Total Square Cm 15 28.5 24.80 -Date of Last Picture (Recall this 07/22/25 07/29/25 field) -Photo Taken Yes Yes No -Epithelialization Small 1-33% Small 1-33% -Tunneling No No No -Undermining/Tunneling No No No -Circular Undermining No No -Exudate Amt Medium Large Large -Exudate Type Sanguineous Serous Yellow/Green -Wound Margin Flat & Intact Distinct, Distinct, Outline Outline Attached Attached -Granulation Amt Large (67-100%) Medium (34-66%) Medium (34-66%) -Granulation Quality [place],Red [place],Red -Slough/Fibrin No No -Necrosis Amt None Present (0 None Present (0 %) %) -Structure Exposed N/A None/Limited to Skin Breakdown -Texture (Rachele-wound Skin Appearance) No Abnormality Assessed, Assessed Localized Edema -Moisture (Rachele-wound Skin Appearance) No Abnormality Assessed, Assessed Weeping -Color (Rachele-wound Skin Appearance) No Abnormality Assessed Assessed, Erythema -Temperature (Rachele-wound Skin No Abnormality No Abnormality Appearance) (Pt Warm) (Pt Warm) -Tenderness on Palpation (Rachele-wound No Skin Appearance) -Ulcer Cleansing Rinsed/ Soap and Water Soap and Water Irrigated with Saline -Foul Odor after Cleansing No No No -Anesthetic Used 4% Lidocaine 5% Lidocaine 5% Lidocaine Solution Gel Gel Point of measurement (cm from the medial 57 instep) Point of Measurement (cm from the medial 31 instep) Left Calf (cm) 65 Left Ankle (cm) 32 WC - Nurse 2 - General Ulcer CM Notes Start: 07/22/25 08:51 Freq: Status: Active Protocol: Activity Type Activity Date Activity User E-sign Co-sign Detail Recorded Client Recorded Date Recorded By Document 07/22/25 09:16 [id number] 07/22/25 09:21 JF Document 07/29/25 08:25 [id number] 07/29/25 08:28 Edit Result 07/29/25 08:25 JF (1) 000 08/04/25 08:36 JF Document 08/05/25 13:35 JF [id number] 08/05/25 13:37 JF (1) #4 Right Posterior Calf Cluster - Debridement, SubQ, ea addt'l 20sq cm => 2 or part thereof 07/22/25 07/29/25 08/05/25 09:16 08:25 13:35 Wound Center Nurse 2 #4 Right Posterior Calf Cluster -Time 09: 08:25 13:36 -Correct Patient Yes Yes Yes -Correct Side, Site, Position Yes Yes Yes -Correct Procedure Yes Yes Yes -Procedure Performed Yes Yes Yes -Type of Procedure Debridement Debridement Debridement -Clinical Debridement Subcutaneous Subcutaneous Subcutaneous -Tissue Removed Subcutaneous Subcutaneous Subcutaneous -Post Debridement (cm) - Length 5.2 4.8 5.2 -Post Debridement (cm) - Width 7.6 8.5 7 -Post Debridement (cm) - Depth 0.1 0.1 0.1 -Total Square (Post) (cm) 39.52 40.80 36.4 -Area of Debridement (cm) - Length 5.2 4.8 5.2 -Area of Debridement (cm) - Width 7.6 8.5 7 -Total Square (Area) (cm) 39.52 40.80 36.4 -Tunneling No No No -Undermining/Tunneling No No No -Circular Undermining No No No -Wound/Ulcer Outcome Not Healed Not Healed Not Healed -Ulcer Cleansing Rinsed/ Rinsed/ Rinsed/ Irrigated with Irrigated with Irrigated with Saline Saline Saline -Foul Odor after Cleansing No No No -Bioengineered Tissue No No No -Bleeding Controlled with Pressure Pressure Pressure -Treatment Response Procedure Procedure Procedure Tolerated Well Tolerated Well Tolerated Well -Offloading No No No -Debridement - Subq, 1st 20sq cm Yes Yes Yes -Debridement, SubQ, ea addt'l 20sq cm 1 2 1 or part thereof Pain Scale: 0-10 Numeric Is Patient Pain Free? Yes Yes Yes WC - Nurse 3 - General Ulcer D/C NN Start: 07/22/25 08:51 Freq: Status: Active Protocol: Activity Type Activity Date Activity User E-sign Co-sign Detail Recorded Client Recorded Date Recorded By Document 07/22/25 09:44 RB [id number] 07/22/25 09:45 RB Document 07/27/25 09:50 TS [id number] 07/27/25 10:10 TS Document 07/29/25 08:43 TS [id number] 07/29/25 08:44 TS Document 07/31/25 12:41 TS [id number] 07/31/25 12:45 TS Document 08/05/25 13:42 TS [id number] 08/05/25 13:45 TS 07/22/25 07/27/25 07/29/25 09:44 09:50 08:43 Wound Care Center Nurse 3 #4 Right Posterior Calf Cluster -Ulcer Cleansing Rinsed/ Soap and Water Rinsed/ Irrigated with Irrigated with Saline Saline -Primary Dressing Applied Aquacel AG 4x4, Optilok 6.5x10, Optilok 5x5 1/2 Optilok 6.5x10 Silvercel ,Silvercel -Aquacel AG 4x4 1 -Optilok 5x5 1/2 1 -Optilok 6.5x10 1 1 -Silvercel 1 1 RLE -Lotion applied to leg before Yes Yes compression wrap -Multi-Layered Wrap Application Multi-Layer Multi-Layer Comp - Right ($ Comp - Right ($ ) ) -Multi-Layer Compression Right (Qty 1 1 1 applied) Treatment Response Procedure Tolerated Well Pain Scale: 0-10 Numeric Is Patient Pain Free? Yes Yes Yes WC - Visit Discharge Discharge Condition Stable Stable Stable Ambulatory Status Ambulatory, Walker Walker Walker Transportation Private Auto Private Auto Medication Reconcilliation completed & No No No provided to patient/care provider Clinical Summary of Care Provided Yes Yes Yes 07/31/25 08/05/25 12:41 13:42 Wound Care Center Nurse 3 #4 Right Posterior Calf Cluster -Ulcer Cleansing Soap and Water Rinsed/ Irrigated with Saline -Primary Dressing Applied Optilok 5x5 1/2 Optilok 5x5 1/2 ,Silvercel ,Silvercel -Aquacel AG 4x4 -Optilok 5x5 1/2 1 1 -Optilok 6.5x10 -Silvercel 1 1 RLE -Lotion applied to leg before Yes Yes compression wrap -Multi-Layered Wrap Application Multi-Layer Multi-Layer Comp - Right ($ Comp - Right ($ ) ) -Multi-Layer Compression Right (Qty 1 1 applied) Treatment Response Pain Scale: 0-10 Numeric Is Patient Pain Free? Yes Yes WC - Visit Discharge Discharge Condition Stable Stable Ambulatory Status Walker Walker Transportation Private Auto Private Auto Medication Reconcilliation completed & No No provided to patient/care provider Clinical Summary of Care Provided Yes Yes Assessment/Plan Assessment/Plan (1) Non-pressure chronic ulcer of other part of right lower leg with fat layer exposed: CODE(S): L97.812 - Non-pressure chronic ulcer of other 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 All findings were discussed with the patient. All questions were answered to the patient's satisfaction. Excisional debridement down to and including subcutaneous tissue with a number 5 mm dermal curette to the right posterior leg full-thickness wound done without incident. Predebridement measurement was 5.2 x 7.0 x 0.1 cm. Postdebridement measurements 5.2 x 7.0 x 0.1 cm. Right lower extremity was cleaned and patted dry. Silver alginate followed by dry sterile dressing superabsorber and 3M multilayer compression bandage was donned to the right lower extremity. Patient will be seeing infectious disease for evaluation and antibiotic treatment today. Patient will follow-up with nursing visits for dressing changes. At next follow-up we will begin application of amniotic skin graft substitute to right lower extremity. Patient will follow-up with Dr. Lord in 2 week. (2) Lymphedema, not elsewhere classified: CODE(S): I89.0 - Lymphedema, not elsewhere classified
--- NOTE | 2025-08-05 17:05 | PCM.CONS.GEN ---
Assessment & Plan Assessment/Plan (1) Cellulitis of right leg: PLAN: Wound cx with PsA, Raoultella, strep. Will stop keflex, wrote for 10 days po levaquin. Last QTC less than 450. Return to clinic as needed, d/w Dr. Lord. Thank you for the referral. (2) Lymphedema: HPI Consult Data Date of Consult: 08/05/25 HPI Narrative Reason for Consultation: wound infection HPI Narrative: ANDRES BOB, is a 44 F with chronic lymphedema, chronic ulcer on R lower leg, now with several weeks increased pain and green drainage. No fever or chills. Recently started on keflex without any improvement. No n/v/d. Full ROS performed and neg except as noted above. [facility] Medical History Open wound History of steroid therapy Diabetes Easy bruising Restless legs Migraine headache Wears glasses Cracked tooth Difficulty chewing GERD (gastroesophageal reflux disease) Electronic cigarette use CPAP (continuous positive airway pressure) dependence Shortness of breath on exertion History of stress test Anxiety Sleep apnea COPD (chronic obstructive pulmonary disease) Asthma Obesity Diabetes Bipolar 1 disorder Home Medications ?Medication ?Instructions ?Recorded ?Last Taken ?Type loratadine 10 mg tablet (Allergy 10 mg PO DAILY Allergies 07/07/13 11/07/19 History Relief (loratadine)) lorazepam 1 mg tablet 1 mg PO BID PRN PRN Anxiety 12/11/13 06/26/19 History montelukast 10 mg tablet 10 mg PO QHS 08/10/16 11/07/19 History sumatriptan succinate 25 mg tablet 25 mg PO .X1 PRN PRN Migraine 08/10/16 06/30/19 History (Imitrex) Symptoms aripiprazole 2 mg tablet 5 mg PO QHS 07/01/19 06/20/23 History citalopram 40 mg tablet 40 mg PO DAILY 07/01/19 09/28/23 History lamotrigine 200 mg tablet 200 mg PO BID 07/01/19 09/28/23 History metformin 500 mg tablet 1,000 mg PO BID dm 07/01/19 11/07/19 History naproxen 500 mg tablet 500 mg PO BID PRN PRN Pain Or Fever 07/01/19 Unknown History topiramate 100 mg tablet 100 mg PO BID 07/01/19 11/07/19 History glimepiride 2 mg tablet 4 mg PO DAILY 11/08/19 11/07/19 History lansoprazole 30 mg capsule,delayed 30 mg PO DAILY #30 CAPSULES 12/30/20 09/28/23 Rx release albuterol sulfate 90 mcg/actuation 2 puff inhalation Q4H PRN PRN 09/07/22 09/28/23 Rx aerosol inhaler (Ventolin HFA) Wheezing ##1 ferrous sulfate 325 mg (65 mg 325 mg PO TID #90 tabs 09/07/22 Unknown Rx iron) tablet (FeroSul) furosemide 20 mg tablet 20 mg PO BID 09/07/22 Unknown History cyclobenzaprine 10 mg tablet 10 mg PO TID PRN Muscle Spasm #20 12/09/22 Unknown Rx TABLETS pramipexole 1.5 mg tablet (Mirapex) 1.5 mg PO QHS 09/25/23 Unknown History ascorbic acid (vitamin C) 1,000 mg 1 g PO DAILY 90 days #90 tabs 09/28/23 Unknown Rx tablet (Vitamin C) calcium 500 mg (as 1 tab PO DAILY 90 days #90 tabs 09/28/23 Unknown Rx carbonate)-vitamin D3 15 mcg (600 unit) tablet (Os-Wilfredo 500 + D3) cyclobenzaprine 10 mg tablet 10 mg PO TID 7 days #21 tabs 09/28/23 Unknown Rx docusate sodium 100 mg capsule 100 mg PO DAILY 10 days #10 caps 09/28/23 Unknown Rx (Colace) acetaminophen 500 mg tablet 1,000 mg (2 x 500 mg) PO Q6H PRN 03/09/24 Unknown Rx (Tylenol Extra Strength) pain 7 days #56 tabs benztropine 1 mg tablet 1 mg PO BID PRN PRN legs 03/09/24 Unknown History quetiapine 25 mg tablet (Seroquel) 25 mg PO DAILY 04/09/24 04/09/24 History sulfamethoxazole 800 1 tab PO BID 2 weeks #28 tabs 06/25/24 Unknown Rx mg-trimethoprim 160 mg tablet (Bactrim DS) amoxicillin 875 mg-potassium 1 tab PO BID 2 weeks #28 tabs 07/02/24 Unknown Rx clavulanate 125 mg tablet gentamicin 0.1 % topical ointment 1 applic topical TID #30 grams 07/02/24 Unknown Rx cephalexin 500 mg capsule 500 mg PO Q6 #20 CAPSULES 07/17/24 Unknown Rx hydrocodone-acetaminophen 5-325mg 1 tab PO Q6H PRN PRN Pain 3 days 12/15/24 Unknown Rx 5mg-325mg #10 TABLETS levofloxacin 500 mg tablet 500 mg PO DAILY 2 weeks #14 tabs 02/26/25 Unknown Rx furosemide 40 mg tablet (Lasix) 40 mg PO BID 5 days #10 tabs 07/04/25 Unknown Rx nitrofurantoin 100 mg PO Q12H 5 days #10 caps 07/04/25 Unknown Rx monohydrate/macrocrystals 100 mg capsule (Macrobid) cephalexin 500 mg capsule 500 mg PO TID 2 weeks #42 caps 07/22/25 Unknown Rx Allergy/AdvReac Type Severity Reaction Status Date / Time amoxicillin (From Augmentin) Allergy Intermediate Hives Verified 07/04/25 18:08 clavulanic acid (From Allergy Intermediate Hives Verified 07/04/25 18:08 Augmentin) melatonin Allergy Hives Verified 07/04/25 18:08 Penicillins Allergy Hives Verified 07/04/25 18:08 tramadol Allergy Rash Verified 07/04/25 18:08 Surgical History History of cardiac catheterization History of umbilical hernia repair (~2017) History of herniorrhaphy Social History household members: none Smoking Status: Heavy Smoker (>10/day) Tobacco: How many years used: 20 how long ago did patient quit smokin months substance use type: does not use Physical Exam Const alert, oriented x3 and no apparent distress General Appearance: cooperative HEENT normocephalic and head/scalp atraumatic Eyes PERRL and EOMs intact bilaterally Neck supple and No nodes Resp normal air movement and clear to auscultation bilaterally Cardio regular rate and regular rhythm GI soft to palpation, non-tender and non-distended Extremity General Extremity: edema Skin Skin Narrative: reviewed wound photos Neuro CN's II-XII intact bilaterally Lab / Micro Data Attestation: I reviewed the patient's lab results.
[2025-08-07 07:56] VITALS: BP 160/117; PULSE 102; RESP 18; TEMP 36.7
[2025-08-10 13:24] VITALS: BP 130/87; PULSE 98; RESP 14; TEMP 36.2
[2025-08-12 13:16] VITALS: BP 162/102; PULSE 110; RESP 16; TEMP 36.2
== END 2025-08-16 23:59 | disposition home or self-care (01) ==
LOC: WC 13:30
PROVIDERS: PCP Internal Medicine; Referring Provider Internal Medicine; Visit Provider Podiatrist Foot & Ankle Surgery
DX: L03.115 Cellulitis of right lower limb (principal); E11.622 Type 2 diabetes mellitus with other skin ulcer; L97.812 Non-pressure chronic ulcer of other part of right lower leg with fat layer exposed; F31.9 Bipolar disorder, unspecified; J44.9 Chronic obstructive pulmonary disease, unspecified; K21.9 Gastro-esophageal reflux disease without esophagitis; M79.661 Pain in right lower leg; I89.0 Lymphedema, not elsewhere classified; Z79.84 Long term (current) use of oral hypoglycemic drugs; G89.29 Other chronic pain; F17.210 Nicotine dependence, cigarettes, uncomplicated
CPT/HCPCS: 11042; 11045; 29581; 87070; 87075; 87077; 87186; 87205

== ENCOUNTER 2025-08-26 14:47 | Outpatient (RCR) | payer MEDICAID, SELFPAY | END 2025-09-16 23:59 | LOC: NS 14:47 | PROVIDERS: PCP Internal Medicine; Referring Provider Podiatrist Foot & Ankle Surgery; Visit Provider Podiatrist Foot & Ankle Surgery | DX: Z71.3 Dietary counseling and surveillance (principal); E66.01 Morbid (severe) obesity due to excess calories; E11.42 Type 2 diabetes mellitus with diabetic polyneuropathy; Z68.44 Body mass index [BMI] 60.0-69.9, adult | CPT/HCPCS: 97803 ==

== ENCOUNTER 2025-09-13 15:16 | Emergency (ER) | payer MEDICAID, SELFPAY ==
[2025-09-13 15:16] VITALS: BP 183/96; PULSE 70; RESP 14; TEMP 37; O2SAT 98; BMI 64.3
--- NOTE | 2025-09-13 15:47 | EX.ED.GENINJ ---
HPI History of Present Illness Chief Complaint: Other, Pain/Inj PFSH PFSH Medical History Open wound History of steroid therapy Diabetes Easy bruising Restless legs Migraine headache Wears glasses Cracked tooth Difficulty chewing GERD (gastroesophageal reflux disease) Electronic cigarette use CPAP (continuous positive airway pressure) dependence Shortness of breath on exertion History of stress test Anxiety Sleep apnea COPD (chronic obstructive pulmonary disease) Asthma Obesity Diabetes Bipolar 1 disorder Home Medications ?Medication ?Instructions ?Recorded ?Last Taken ?Type loratadine 10 mg tablet (Allergy 10 mg PO DAILY Allergies 07/07/13 11/07/19 History Relief (loratadine)) lorazepam 1 mg tablet 1 mg PO BID PRN PRN Anxiety 12/11/13 06/26/19 History montelukast 10 mg tablet 10 mg PO QHS 08/10/16 11/07/19 History sumatriptan succinate 25 mg tablet 25 mg PO .X1 PRN PRN Migraine 08/10/16 06/30/19 History (Imitrex) Symptoms aripiprazole 2 mg tablet 5 mg PO QHS 07/01/19 06/20/23 History citalopram 40 mg tablet 40 mg PO DAILY 07/01/19 09/28/23 History lamotrigine 200 mg tablet 200 mg PO BID 07/01/19 09/28/23 History metformin 500 mg tablet 1,000 mg PO BID dm 07/01/19 11/07/19 History naproxen 500 mg tablet 500 mg PO BID PRN PRN Pain Or Fever 07/01/19 Unknown History topiramate 100 mg tablet 100 mg PO BID 07/01/19 11/07/19 History glimepiride 2 mg tablet 4 mg PO DAILY 11/08/19 11/07/19 History lansoprazole 30 mg capsule,delayed 30 mg PO DAILY #30 CAPSULES 12/30/20 09/28/23 Rx release albuterol sulfate 90 mcg/actuation 2 puff inhalation Q4H PRN PRN 09/07/22 09/28/23 Rx aerosol inhaler (Ventolin HFA) Wheezing ##1 ferrous sulfate 325 mg (65 mg 325 mg PO TID #90 tabs 09/07/22 Unknown Rx iron) tablet (FeroSul) furosemide 20 mg tablet 20 mg PO BID 09/07/22 Unknown History cyclobenzaprine 10 mg tablet 10 mg PO TID PRN Muscle Spasm #20 12/09/22 Unknown Rx TABLETS pramipexole 1.5 mg tablet (Mirapex) 1.5 mg PO QHS 09/25/23 Unknown History ascorbic acid (vitamin C) 1,000 mg 1 g PO DAILY 90 days #90 tabs 09/28/23 Unknown Rx tablet (Vitamin C) calcium 500 mg (as 1 tab PO DAILY 90 days #90 tabs 09/28/23 Unknown Rx carbonate)-vitamin D3 15 mcg (600 unit) tablet (Os-Wilfredo 500 + D3) cyclobenzaprine 10 mg tablet 10 mg PO TID 7 days #21 tabs 09/28/23 Unknown Rx docusate sodium 100 mg capsule 100 mg PO DAILY 10 days #10 caps 09/28/23 Unknown Rx (Colace) acetaminophen 500 mg tablet 1,000 mg (2 x 500 mg) PO Q6H PRN 03/09/24 Unknown Rx (Tylenol Extra Strength) pain 7 days #56 tabs benztropine 1 mg tablet 1 mg PO BID PRN PRN legs 03/09/24 Unknown History quetiapine 25 mg tablet (Seroquel) 25 mg PO DAILY 04/09/24 04/09/24 History sulfamethoxazole 800 1 tab PO BID 2 weeks #28 tabs 06/25/24 Unknown Rx mg-trimethoprim 160 mg tablet (Bactrim DS) amoxicillin 875 mg-potassium 1 tab PO BID 2 weeks #28 tabs 07/02/24 Unknown Rx clavulanate 125 mg tablet gentamicin 0.1 % topical ointment 1 applic topical TID #30 grams 07/02/24 Unknown Rx cephalexin 500 mg capsule 500 mg PO Q6 #20 CAPSULES 07/17/24 Unknown Rx hydrocodone-acetaminophen 5-325mg 1 tab PO Q6H PRN PRN Pain 3 days 12/15/24 Unknown Rx 5mg-325mg #10 TABLETS levofloxacin 500 mg tablet 500 mg PO DAILY 2 weeks #14 tabs 02/26/25 Unknown Rx furosemide 40 mg tablet (Lasix) 40 mg PO BID 5 days #10 tabs 07/04/25 Unknown Rx nitrofurantoin 100 mg PO Q12H 5 days #10 caps 07/04/25 Unknown Rx monohydrate/macrocrystals 100 mg capsule (Macrobid) cephalexin 500 mg capsule 500 mg PO TID 2 weeks #42 caps 07/22/25 Unknown Rx prednisone 50 mg tablet 50 mg PO DAILY 4 days #4 tabs 09/13/25 Unknown Rx Allergy/AdvReac Type Severity Reaction Status Date / Time amoxicillin (From Augmentin) Allergy Intermediate Hives Verified 09/13/25 15:17 clavulanic acid (From Allergy Intermediate Hives Verified 09/13/25 15:17 Augmentin) melatonin Allergy Hives Verified 09/13/25 15:17 Penicillins Allergy Hives Verified 09/13/25 15:17 tramadol Allergy Rash Verified 09/13/25 15:17 Surgical History History of cardiac catheterization History of umbilical hernia repair (~2017) History of herniorrhaphy Social History household members: none Smoking Status: Heavy Smoker (>10/day) Tobacco: How many years used: 20 how long ago did patient quit smokin months substance use type: does not use EXAM Physical Exam Const Vital Signs: 09/13/25 15:16 Temperature 98.6 F Temperature Source Oral Pulse Rate 70 Respiratory Rate 14 Blood Pressure 183/96 H Blood Pressure Mean 125 Pulse Ox 98 Oxygen Delivery Method Room Air MDM MDM MDM Narrative Medical decision making narrative: HISTORY OF PRESENT ILLNESS: Chief complaint: Muscle pain 45-year-old female history of lumbar radiculopathy, low back pain, morbid obesity, lymphedema, type 2 diabetes, GERD presents with right chest wall pain. She notes this pain started 1 week ago. She notes inciting event where she was stretching in bed and felt a sharp pain in her right pectoralis muscle and right shoulder. Notes pain is worse with moving her arm into abduction or rob her pectoralis muscle. She denies midsternal chest pain/pressure/tightness, shortness of breath or leg swelling. The patient denies recent surgery in the last 4 weeks or immobilization in the last 3 days, denies previous diagnosis of DVT or PE, hemoptysis, unilateral leg swelling or malignancy with treatment the last 6 months or palliative. No estrogen use noted. REVIEW OF SYSTEMS: Pertinent positives: Right chest wall pain Pertinent negatives: As per HPI PHYSICAL EXAM: Nursing triage notes reviewed, Vital signs reviewed Constitutional: please see [facility] HENT: MMM Eyes: Pupils equal round and reactive to light, Extraocular muscles intact Neck: No stridor, no JVD, full neck ROM Chest: TTP over lateral pectoralis muscle and tenderness insertion into the proximal humerus. TTP elicited with resisted shoulder abduction consistent with pectoralis strain. Lungs: Clear to auscultation, No wheezing or rales. No increased work of breathing, no conversational dyspnea, no accessory muscle use, no nasal flaring. No respiratory distress noted Heart: Regular rate and rhythm, No murmurs, No rubs and No gallops, 2+ distal pulses (radial, femoral, posterior tibial) in all extremities Abdomen: Soft, there is no tenderness, rigidity, rebound or guarding, no obvious peritoneal signs, no palpable pulsatile abdominal masses, no auscultated abdominal bruit : No CVAT Extremities: No edema Neuro: No new focal neurological deficits, cranial nerves II through XII intact, 5/5 strength in all present extremities. Intact sensation to light touch in all present extremities, 2+ reflexes bilateral patella tendons. Skin: No rash or lesions noted MEDICAL DECISION MAKING: Chief Complaint: please see [facility] External records reviewed: Reviewed prior medications Factors affecting care: As per [facility] Social determinants of health: Smoker History obtained from others: none Consults: none [facility] Narrative: The patient was initially hemodynamically stable, afebrile and nontoxic-appearing. Exam consistent with pectoralis muscle strain I considered the following differential diagnosis: Muscle strain, shingles, ACS Given history and physical exam is most consistent with chest wall pain I do not suspect the patient has ACS at this time. There is no rash to suggest shingles Will give anti-inflammatories, Tylenol, short course of steroids and at home exercises. Discussed elevated blood sugars while taking steroids in the setting of type 2 diabetes. Discussed a low carbohydrate diet. Discussed following up with PCP at the next available appointment. Discussed tricked return precautions The patient and/or family, caregivers express understanding. The patient and/or family, caregivers agrees with the plan. Shared decision making: I will have a discussion with the patient and or visitors regarding risk/benefits of further testing or admission. They will be made aware of of the risk/benefits inherent in this decision they will be given the opportunity to voice understanding. Total critical care time today provided was at least 0 minutes. This excludes separately billable procedures. Critical care time (if documented) is secondary to the patient having high probability of clinically significant/life threatening deterioration in the patient's condition which required my urgent intervention. Impression: 1. Pectoralis muscle strain Dispo: Discharge home This note was generated with [employer] dictation software. It may contain incorrect words, spelling, and punctuation that were not noted in review of the chart prior to signing. Discharge Plan Triage Chief Complaint: Other, Pain/Inj ED Provider: Rivera Perales Dx/Rx/DC Orders Instructions: Treating?Strains and Sprains Prescriptions: New prednisone 50 mg tablet 50 mg PO DAILY 4 Days Qty: 4 0RF No Action loratadine [Allergy Relief (loratadine)] 10 MG tablet 10 mg PO DAILY lorazepam 1 MG tablet 1 mg PO BID PRN PRN (Reason: Anxiety) sumatriptan succinate [Imitrex] 25 MG tablet 25 mg PO .X1 PRN PRN (Reason: Migraine Symptoms) montelukast 10 MG tablet 10 mg PO QHS metformin 500 MG tablet 1,000 mg PO BID Patient Comments: TAKE 2 TABLETS TWICE DAILY WITH meals lamotrigine 200 mg tablet 200 mg PO BID Patient Comments: 1 tablet twice a day citalopram 40 tablet 40 mg PO DAILY topiramate 100 MG tablet 100 mg PO BID Patient Comments: TAKE 1 TABLET TWICE DAILY naproxen 500 MG tablet 500 mg PO BID PRN PRN (Reason: Pain Or Fever) Patient Comments: TAKE 1 TABLET TWICE DAILY WITH FOOD NEEDED FOR PAIN /inflammation aripiprazole 2 mg tablet 5 mg PO QHS Patient Comments: Take 1 tablet by mouth once a day glimepiride 2 MG tablet 4 mg PO DAILY lansoprazole 30 MG capsule 30 mg PO DAILY Qty: 30 0RF furosemide 20 mg tablet 20 mg PO BID ferrous sulfate [FeroSul] 325 mg (65 mg iron) tablet 325 mg PO TID Qty: 90 0RF Rx Instructions: May start once a day for a week, twice a day for a week, and then start 3 times daily. albuterol sulfate [Ventolin HFA] 90 mcg/actuation HFA aerosol inhaler 2 puff inhalation Q4H PRN MDD Dispense with spacer if availa PRN (Reason: Wheezing) Qty: 1 0RF cyclobenzaprine [cyclobenzaprine] 10 mg tablet 10 mg PO TID PRN (Reason: Muscle Spasm) Qty: 20 0RF pramipexole [Mirapex] 1.5 mg tablet 1.5 mg PO QHS cyclobenzaprine 10 mg tablet 10 mg PO TID 7 Days Qty: 21 0RF docusate sodium [Colace] 100 mg capsule 100 mg PO DAILY 10 Days Qty: 10 0RF ascorbic acid (vitamin C) [Vitamin C] 1,000 mg tablet 1 g PO DAILY 90 Days Qty: 90 0RF calcium carbonate-vitamin D3 [Os-Wilfredo 500 + D3] 500 mg-15 mcg (600 unit) tablet 1 tab PO DAILY 90 Days Qty: 90 0RF sulfamethoxazole-trimethoprim [Bactrim DS] 800-160 mg tablet 1 tab PO BID 14 Days Qty: 28 0RF amoxicillin-pot clavulanate 875-125 mg tablet 1 tab PO BID 14 Days Qty: 28 0RF gentamicin 0.1 % ointment 1 applic topical TID Qty: 30 1RF Rx Instructions: Applied to full-thickness wound to the posterior right leg daily and cover with dry sterile dressing. hydrocodone-acetaminophen 5-325 mg tablet 1 tab PO Q6H PRN PRN (Reason: Pain) 3 Days Qty: 10 0RF cephalexin 500 mg capsule 500 mg PO TID 14 Days Qty: 42 0RF benztropine 1 mg tablet 1 mg PO BID PRN PRN (Reason: legs) acetaminophen [Tylenol Extra Strength] 500 mg tablet 1,000 mg PO Q6H PRN (Reason: pain) 7 Days Qty: 56 0RF quetiapine [Seroquel] 25 mg tablet 25 mg PO DAILY Rx Instructions: 3 tablets daily cephalexin 500 mg capsule 500 mg PO Q6 Qty: 20 0RF levofloxacin 500 mg tablet 500 mg PO DAILY 14 Days Qty: 14 0RF nitrofurantoin monohyd/m-cryst [Macrobid] 100 mg capsule 100 mg PO Q12H 5 Days Qty: 10 0RF Rx Instructions: must administer with a meal/food furosemide [Lasix] 40 mg tablet 40 mg PO BID 5 Days Qty: 10 0RF Primary Care Provider: Verona Villarreal Referrals: Verona Villarreal MD [Primary Care Provider, Internal Medicine] Activity Restrictions/Additional Instructions: Thank you for trusting us with your care today! Your history and physical exam is most consistent with a chest wall muscle strain. It is appropriate to rest the sorts of injuries with the first 24 to 48 hours but after which you must actively stress the tissues to improve strength, range of motion and pain. Please perform range of motion exercises and strengthening exercises twice a day. Please take Tylenol (2 pills, 650 mg), ibuprofen (2 pills, 400 mg) every 6 hours as needed for pain and fever control. Please take prednisone as prescribed for additional inflammation control. Please return to the emergency department if your symptoms change or worsen. Specifically develop chest pain, shortness of breath or if you lose consciousness. Please follow with your primary care physician for further outpatient evaluation and management. Print Language: Irish Disposition Disposition: Home, Self Care
[2025-09-13 16:11] VITALS: BP 183/96; PULSE 70; RESP 14; TEMP 37; O2SAT 98
--- OUTSIDE RECORDS SUMMARY | 2025-09-13 16:16 | XMS RPT_ITS | CCD ---
Author Organization [facility] Care Team Providers Care Manager Work Name Role Phone PROVIDER, UNKNOWN Unavailable Unavailable Rodri Chauhan Unavailable Unavailable Allie Pena Unavailable Unavailable Rodri Chauhan MD Primary Care Provider Rodri Chauhan MD Primary Care Provider Rodri Chauhan MD Primary Care Provider Rodri Chauhan MD Primary Care Provider Rm MRI CT TECH.SENIOR SHAREPOINT ARCHITECT, Johnson Unavailable Ella MRI CT TECH.SENIOR TRAINER, Zunilda Unavailable Ella MRI CT TECH.SENIOR TRAINER, Zunilda Miriam Unavailable Ella MRI CT TECH.SENIOR TRAINER, Zunilda Unavailable Ella MRI CT TECH.SENIOR TRAINER, Zunilda Unavailable Dr. Rodri Chauhan MD Primary Care Provider [phone] Ella SINGER BACK TENDER-C, Zunilda Referring Provider Pop MORENO, Dr. Mullen Attending Provider Dr. Miles Littlejohn MD Attending Provider Pop MORENO, Dr. Mullen Referring Provider Niharika CAST, Dr. Ervin Referring Provider Dr. Arcadio Bundy MD Emergency Provider Ella MRI CT TECH.SENIOR TRAINER, Zunilda Unavailable Dr. Rodri Chauhan MD Primary Care Provider [phone] Ella SINGER BACK TENDER-C, Zunilda Referring Provider Lord DPM, Dr. Mullen Attending Provider Lord DPM, Dr. Mullen Referring Provider Niharika CAST, Dr. Ervin Attending Provider Cherelle CAST, Dr. Rodri Dhaliwal Referring Provider Sarah Hopson Attending Provider Thomas CAST, Dr. Hollingsworth Attending Provider Rm MRI CT TECH.SENIOR SHAREPOINT ARCHITECT, Johnson Unavailable Rm MRI CT TECH.SENIOR SHAREPOINT ARCHITECT, Johnson Unavailable Cherelle CAST, Dr. Rodri Dhaliwal Primary Care Provider Ella SINGER BACK TENDER-C, Zunilda Referring Provider Lord DPM, Dr. Mullen Attending Provider Cherelle CAST, Dr. Rodri Dhaliwal Primary Care Provider [phone] Lord DPM, Dr. Mullen Attending Provider Ella SINGER BACK TENDER-C, Zunilda Referring Provider Cherelle CAST, Dr. Rodri Dhaliwal Primary Care Provider Lord DPM, Dr. Mullen Attending Provider Lord DPM, Dr. Mullen Referring Provider Ella SINGER BACK TENDER-C, Zunilda Referring Provider Cherelle CAST, Dr. Rodri Dhaliwal Primary Care Physician Lord DPM, Dr. Mullen Attending Physician Lord DPM, Dr. Mullen Referring Provider RODRI CHAUHAN Primary Care Unavailable RM, JOHNSON Referring Unavailable MR, JOHNSON Attending Unavailable RODRI CHAUHAN Primary Care Unavailable RM, JOHNSON Referring Unavailable NANCI COOK Attending Unavailable RODRI CHAUHAN Primary Care Unavailable RM, JOHNSON Referring Unavailable O'NANCI LY Attending Unavailable TALAMPAS, RODRI D Primary Care Unavailable PREETI KABA Attending Unavailable TALAMPAS, RODRI D Primary Care Unavailable RM, JOHNSON Referring Unavailable O'MARIA LUISA, NANCI Attending Unavailable TALAMPAS, RODRI D Primary Care Unavailable RM, JOHNSON Referring Unavailable O'MARIA LUISA, NANCI Attending Unavailable TALAMPAS, RODRI D Primary Care Unavailable RM, JOHNSON Referring Unavailable O'MARIA LUISA, NANCI Attending Unavailable TALAMPAS, RODRI D Primary Care Unavailable SELF Referring Unavailable RM, JOHNSON Attending Unavailable TALAMPAS, RODRI D Primary Care Unavailable RM, JOHNSON Referring Unavailable TALAMPAS, RODRI D Primary Care Unavailable TALAMPAS, RODRI D Primary Care Unavailable PREETI KABA M Referring Unavailable JORGE DRISCOLL Attending Unavailable TALAMPAS, RODRI D Primary Care Unavailable ABRAMJORGE PINK Referring Unavailable TALAMPAS, RODRI D Primary Care Unavailable RM, JOHNSON Attending Unavailable TALAMPAS, RODRI D Primary Care Unavailable RM, JOHNSON Attending Unavailable TALAMPAS, RODRI D Primary Care Unavailable RM, JOHNSON Referring Unavailable TALAMPAS, RODRI D Primary Care Unavailable RM, JOHNSON Attending Unavailable TALAMPAS, RODRI D Primary Care Unavailable ZUNILDA JARAMILLO Attending Unavailable TALAMPAS, RODRI D Primary Care Unavailable JORGE DRISCOLL Referring Unavailable TALAMPAS, RODRI D Primary Care Unavailable TALAMPAS, RODRI D Referring Unavailable Talampas Dr. Rodri CAST Primary Care Physician Pop DPM, Dr. Mullen Attending Physician Pop DPM, Dr. Mullen Referring Provider Ella SINGER BACK TENDER-CZunilda Referring Provider [phone] Dr. Carri Sweeney DO Attending Physician Dr. Carri Sweeney DO Emergency Department [facility] ale Dr. Rodri Chauhan MD Referring Provider Talampas, Rodri D Referring Unavailable Sarah Robles Attending Unavailable Talampas, Rodri D Primary Care Unavailable Talampas, Rodri D Primary Care Unavailable Darrick Guzman Attending Unavailable Sebas Lord Referring Unavailable Miles Littlejohn Attending Unavailable Talampas, Rodri D Primary Care Unavailable Ella SINGER BACK TENDER, Zunilda Referring Unavailable LordSebas Attending Unavailable Talampas, Rodri D Primary Care Unavailable Carri Sweeney Attending Unavailable Talampas, Rodri D Primary Care Unavailable Talampas, Rodri D Primary Care Unavailable Arcadio Bundy Referring Unavailable Arcadio Bundy Attending Unavailable Ella SINGER BACK TENDER, Zunilda Referring Unavailable Lord, Sebas Attending Unavailable Talampas, Rodri D Primary Care Unavailable Ella SINGER BACK TENDER, Zunilda Referring Unavailable Talampas, Rodri D Primary Care Unavailable Lord, Sebas Attending Unavailable Talampas, Rodri D Primary Care Unavailable Rm SINGER BACK TENDER, Johnson Referring Unavailable Rm SINGER BACK TENDER, Johnson Attending Unavailable Ella SINGER BACK TENDER, Zunilda Referring Unavailable Rome Ramírez Attending Unavailable Lord Sebas Consulting Unavailable Talampas, Rodri D Primary Care Unavailable Talampas, Rodri D Primary Care Unavailable LordSebas Attending Unavailable Lord Sebas Referring Unavailable Talampas, Rodri D Referring Unavailable Talampas, Rodri D Primary Care Unavailable LordSebas Attending Unavailable Talampas, Rodri D Primary Care Unavailable LordSebas Referring Unavailable Lord, Sebas Attending Unavailable Ella SINGER BACK TENDER, Zunilda Referring Unavailable Lord, Sebas Consulting Unavailable LordSebas Attending Unavailable Talampas, Rodri D Primary Care Unavailable Ella SINGER BACK TENDER, Zunilda Referring Unavailable Lord, Sebas Attending Unavailable Talampas, Rodri D Primary Care Unavailable Talampas, Ordri D Referring Unavailable Talampas, Rodri D Primary Care Unavailable LordSebas Attending Unavailable LordSebas Referring Unavailable LordSebas Attending Unavailable Talampas, Rodri D Primary Care Unavailable LordSebas Referring Unavailable Lord, Sebas Attending Unavailable Talampas, Rodri D Primary Care Unavailable Talampas, Ordri D Primary Care Unavailable Lord, Sebas Attending Unavailable LordSebas Referring Unavailable Lord, Sebas Attending Unavailable Talampas, Rodri D Primary Care Unavailable Lord, Sebas Referring Unavailable Lord, Sebas Attending Unavailable Talampas, Rodri D Primary Care Unavailable Lord, Sebas Referring Unavailable Ella SINGER BACK TENDER, Zunilda Referring Unavailable Lord, Sebas Attending Unavailable Talampas, Rodri D Primary Care Unavailable Allergies Allergy Classification Reported Allergen(s) Allergy Type Date of Onset Reaction(s) Facility Aminoketones (1 source) buPROPion Drug Allergy 9 Intolerance [facility] Work Phone: Melatonin (1 source) Melatonin Drug Allergy 7 Rash, [facility] Penicillins (antibiotic) (1 source) Penicillins Drug Allergy 1 Itching, [facility] Work Phone: (20 sources) buPROPion; Translations: [BUPROPION] Drug Allergy 9 Intolerance [facility] Work Phone: (20 sources) Melatonin; Translations: [MELATONIN] [facility] (17 sources) Penicillins; Translations: [PENICILLINS] Drug Allergy 1 Itching, [facility] Work Phone: (20 sources) traMADol; Translations: [TRAMADOL] Drug Allergy 3 Hives, Other: See Comments [facility] (20 sources) environmental [Other] Propensity to adverse reactions 6 [facility] Work Phone: (20 sources) Penicillins Drug Allergy 1 Itching, [facility] Work Phone: (20 sources) Penicillins Allergy to substance 2 [facility] (11 sources) Amoxicillin Drug Allergy 5 [facility] (11 sources) Clavulanate Drug Allergy 5 [facility] (20 sources) Penicillins Drug Allergy 1 Itching, [facility] Work Phone: (1 source) Amoxicillin Drug Allergy 5 [facility] (1 source) Clavulanate Drug Allergy 5 [facility] (1 source) Melatonin Drug Allergy 5 [facility] (1 source) Penicillins Drug allergy (disorder) 5 [facility] (1 source) traMADol Drug Allergy 5 [facility] Medications Current Medications Medication Drug Class(es) Dates Sig (Normalized) Sig (Original) acetaminophen 500 mg oral tablet (11 sources) Start: 03-09-2024 take 2 tablets by mouth every six hours as needed for pain acetaminophen 300 mg / codeine phosphate 30 mg oral tablet (20 sources) Opioid Agonist Start: 05-30-2024 End: 06-06-2024 take 1 tablet by mouth every six hours as needed for pain acetaminophen-cod eine (TYLENOL-COD #3) 300-30 mg per tablet Indications: Lumbago , Rib pain Take 1 tablet by mouth every 6 hours as needed for pain for up to 7 days. 28 tablet 05/30/2024 06/06/2024 Active Start: 09-18-2023 End: 05-01-2024 take 1 tablet by mouth every six hours as needed for pain acetaminophen-codeine (TYLENOL-COD #3) 300-30 mg per tablet Indications: Lumbago , Rib pain Take 1 tablet by mouth every 6 hours as needed for pain for up to 7 days. 28 tablet 0 04/24/2024 05/01/2024 Active Start: 08-07-2023 End: 08-14-2023 take 1 tablet by mouth every eight hours as needed for pain acetaminophen-codeine (TYLENOL-CODEINE #3) 300-30 mg per tablet Indications: Chronic radicular low back pain , Hip pain, left Take 1 tablet by mouth every 8 hours as needed for pain for up to 7 days. Uses as needed for severe pain. 21 tablet 0 08/07/2023 08/14/2023 Active Start: 07-31-2023 End: 08-07-2023 take 1 tablet by mouth every six hours as needed for pain acetaminophen-codeine (TYLENOL-CODEINE #3) 300-30 mg per tablet Indications: Chronic radicular low back pain , Hip pain, left Take 1 tablet by mouth every 6 hours as needed for pain for up to 7 days. Uses as needed for severe pain. 28 tablet 0 07/31/2023 08/07/2023 Discontinued Start: 09-07-2022 End: 06-20-2023 take 1 tablet by mouth every six hours as needed Acetaminophen-Codeine Discontinued 1 TABLET PO EVERY 6 HOURS NEEDED September 07, 2022 1:00am June 20, 2023 3:17pm Start: 09-04-2022 End: 06-20-2023 Acetaminophen-Codeine 300-30 mg tablet Discontinued 1 {tbl} PO EVERY 6 HOURS NEEDED as needed for Pain September 07, 2022 12:00am June 20, 2023 2:17pm Start: 03-28-2022 End: 04-04-2022 take 1 tablet by mouth every six hours as needed for pain acetaminophen-codeine (TYLENOL-CODEINE #3) 300-30 mg per tablet Indications: Hip pain, left Take 1 tablet by mouth every 6 hours as needed for pain for up to 7 days. Uses as needed for severe pain. Do not start before March 28, 2022. 20 tablet 0 03/28/2022 Active Start: 03-02-2022 End: 03-27-2022 take 1 tablet by mouth every four hours as needed for pain acetaminophen-codeine (TYLENOL-CODEINE #3) 300-30 mg per tablet Indications: Hip pain, left Take 1 tablet by mouth every 4 hours as needed for pain for up to 5 days. Uses as needed for severe pain. 30 tablet 0 03/02/2022 03/27/2022 Discontinued Start: 11-23-2021 End: 02-28-2022 take 1 tablet by mouth every four hours as needed for pain acetaminophen-codeine (TYLENOL-CODEINE #3) 300-30 mg per tablet Indications: Hip pain, left Take 1 tablet by mouth every 4 hours as needed for pain for up to 5 days. Uses as needed for severe pain. 30 tablet 0 12/30/2021 02/28/2022 Discontinued Start: 09-23-2021 End: 11-21-2021 take 1 tablet by mouth every four hours as needed for pain acetaminophen-codeine (TYLENOL-CODEINE #3) 300-30 mg per tablet Indications: Hip pain, left Take 1 tablet by mouth every 4 hours as needed for pain for up to 5 days. Uses as needed for severe pain. 30 tablet 0 09/23/2021 11/21/2021 Discontinued Start: 01-12-2015 End: 10-05-2016 Acetaminophen With Codeine ( Tylenol With Codeine #4 Tablet) 1 EACH tablet Discontinued 1 NMA PO NEEDED as needed for Pain January 11, 2015 11:00pm October 05, 2016 2:41pm Comment on above: Take 1 tablet by kathrin th every 4 hours as needed for pain for up to 5 days. Uses as needed for severe pain. Take 1 tablet by kathrin th every 6 hours as needed for pain for up to 7 days. Uses as needed for severe pain. Do not start before March 28, 2022. Take 1 tablet by kathrin th every 6 hours as needed for pain for up to 7 days. Uses as needed for severe pain. Take 1 tablet by kathrin th every 8 hours as needed for pain for up to 7 days. Uses as needed for severe pain. acetaminophen 325 mg / HYDROcodone bitartrate 5 mg oral tablet (20 sources) Opioid Agonist Start: 12-15-2024 End: 06-03-2025 take 1 tablet by mouth every six hours as needed for pain Start: 12-30-2020 End: 01-01-2021 Hydrocodone-Acetaminophen 1 TABLET tablet Discontinued 1 {tbl} PO EVERY 4 HOURS NEEDED as needed for Pain 10 2 0 December 30, 2020 December 30, 2020 11:00pm December 31, 2020 11:03pm Abdominal pain Pain Pain, unspecified Start: 12-30-2020 End: 01-01-2021 take 1 tablet by mouth every four hours as needed Hydrocodone-Acetaminophen Discontinued 1 TABLET PO EVERY 4 HOURS NEEDED 10 2 December 30, 2020 January 01, 2021 12:03am Start: 07-07-2020 End: 07-09-2020 Hydrocodone-Acetaminophen 1 TABLET tablet Discontinued 1 {tbl} PO EVERY 4 HOURS NEEDED as needed for Pain 7 2 0 July 07, 2020 July 07, 2020 11:00pm July 08, 2020 11:03pm Toothache Other specified disorders of teeth and supporting structures Start: 07-07-2020 End: 07-09-2020 take 1 tablet by mouth every four hours as needed Hydrocodone-Acetaminophen Discontinued 1 TABLET PO EVERY 4 HOURS NEEDED 7 2 July 07, 2020 July 09, 2020 12:03am Start: 06-20-2020 End: 06-21-2020 Hydrocodone-Acetaminophen 1 TABLET tablet Discontinued 1 {tbl} PO EVERY 6 HOURS NEEDED as needed for Pain 4 1 0 June 20, 2020 June 19, 2020 11:00pm June 20, 2020 11:02pm Unspecified renal colic Start: 06-20-2020 End: 06-21-2020 take 1 tablet by mouth every six hours as needed Hydrocodone-Acetaminophen Discontinued 1 TABLET PO EVERY 6 HOURS NEEDED 4 1 June 20, 2020 June 21, 2020 12:02am Start: 04-21-2020 End: 04-23-2020 Hydrocodone-Acetaminophen 1 TABLET tablet Discontinued 1 {tbl} PO EVERY 4 HOURS NEEDED as needed for Pain 10 2 0 April 21, 2020 April 21, 2020 11:00pm April 22, 2020 11:02pm Chest pain Chest pain, unspecified Start: 04-21-2020 End: 04-23-2020 take 1 tablet by mouth every four hours as needed Hydrocodone-Acetaminophen Discontinued 1 TABLET PO EVERY 4 HOURS NEEDED 10 2 April 21, 2020 April 23, 2020 12:02am Start: 07-04-2019 End: 07-17-2019 Hydrocodone-Acetaminophen 1 TABLET tablet Discontinued 1 {tbl} PO EVERY 6 HOURS NEEDED as needed for Pain 12 3 0 July 04, 2019 July 05, 2019 11:00pm July 16, 2019 11:08pm Biliary colic Calculus of bile duct without cholangitis or cholecystitis without obstruction Start: 07-04-2019 End: 07-17-2019 take 1 tablet by mouth every six hours as needed Hydrocodone-Acetaminophen Discontinued 1 TABLET PO EVERY 6 HOURS NEEDED 12 3 July 04, 2019 July 17, 2019 12:08am [id number] 200 actuat albuterol 0.09 mg/actuat metered dose inhaler (20 sources) beta2-Adrenergic Agonist Start: 06-19-2023 Albut jaya Sulfate 1.25 mg/3 mL nebulizer solution Indications: Moderate persistent asthma without complication (HCC) Use 1 Ampule via nebulizer every 4 hours as needed for wheezing/shortness of breath. 75 mL 5 06/19/2023 Active Start: 09-07-2022 Start: 09-07-2022 take 1 puff(s) by in halation every four hours as needed Albuterol Sulfate (Ventolin Hfa) 90 mcg/actuation HFA aerosol inhaler Active 2 PUFF INHALATION EVERY 4 HOURS NEEDED September 07, 2022 1:00am Start: 07-13-2022 End: 05-09-2023 Albuterol Sulfate 1.25 mg/3 mL nebulizer solution Indications: Moderate persistent asthma without complication Use 1 Ampule via nebulizer every 4 hours as needed for wheezing/shortness of breath. 75 mL 5 05/09/2023 Active Start: 01-30-2022 End: 05-29-2022 Albuterol Sulfate 1.25 mg/3 mL nebulizer solution Indications: Moderate persistent asthma without complication Use 1 Ampule via nebulizer every 4 hours as needed for wheezing/shortness of breath. 75 mL 5 05/30/2022 Active Start: 01-03-2021 End: 05-29-2025 take 2 puff(s) by inhalation every four hours as needed albuterol HFA (VENTOLIN HFA) 90 mcg/actuation inhaler Indications: Moderate persistent asthma without complication (HCC) Inhale 2 puffs as instructed every 4 hours as needed. 18 g 11 05/29/2025 Active Start: 03-03-2020 End: 01-28-2022 Albuterol Sulfate 1.25 mg/3 mL nebulizer solution Indications: Moderate persistent asthma without complication Use 1 Ampule via nebulizer every 4 hours as needed for Wheezing/Shortness of Breath. 75 mL 5 03/03/2020 01/28/2022 Discontinued Start: 03-26-2014 take 1 puff(s) by in halation every four hours as needed Albuterol Sulfate (Ventolin Hfa) 1 INHALER inhaler Active 1 PUFF INHALATION EVERY 4 HOURS NEEDED March 25, 2014 11:00pm Start: 03-26-2014 take 1 puff(s) by in halation every four hours as needed Albuterol Sulfate (Ventolin Hfa) 1 INHALER inhaler Active 1 PUFF INHALATION EVERY 4 HOURS NEEDED March 26, 2014 12:00am Comment on above: Inhale 2 Puffs as in structed every 4 hours as needed. Use 1 Ampule via neb ulizer every 4 hours as needed for wheezing/shortness of breath. amoxicillin 875 mg / clavulanate 125 mg oral tablet (11 sources) Penicillin-class Antibacterial Start: 07-02-20 24 ARIPiprazole 5 mg oral tablet (20 sources) Atypical Antipsychotic Start: 05-04-20 23 take 1 tablet by mouth once daily ARIPiprazole (ABILIFY) 5 mg tablet Indications: Moderate depressed bipolar I disorder (HCC) Take 1 tablet by mouth once daily. 05/04/2023 Active Start: 07-01-2019 take 5 mg by mouth at bedtime Start: 07-01-2019 take 5 mg by mouth at bedtime Aripiprazole Active 5 MG PO AT BEDTIME July 01, 2019 12:00am Start: 03-12-2019 End: 05-04-2023 take 1 tablet by mouth once daily ARIPiprazole (ABILIFY) 2 mg tablet Indications: Moderate depressed bipolar I disorder (HCC) Take 1 tablet by mouth once daily. 0 03/12/2019 05/04/2023 Discontinued (Adjust Sig - Block E-Cancel) Comment on above: Take 1 tablet by kathrin th once daily. ascorbic acid 1000 mg oral tablet (16 sources) Vitamin C Start: 4 take 1 g by mouth once daily benzonatate 100 mg oral capsule (20 sources) Non-narcotic Antitussive Start: 5 take 1 capsule by mouth three times daily as needed benzonatate (TESSALON PERLE) 100 mg capsule Indications: Intermittent asthma without complication, unspecified asthma severity (HCC) Take 1-2 capsules by mouth three times a day as needed. 60 capsule 1 04/14/2025 Active Start: 10-17-2024 End: 04-09-2025 take 1 capsule by mouth three times daily as needed benzonatate (TESSALON PERLE) 100 mg capsule Indications: Intermittent asthma without complication, unspecified asthma severity (HCC) Take 1-2 capsules by mouth three times a day as needed. 60 capsule 1 10/17/2024 04/09/2025 Discontinued Start: 06-02-2024 End: 06-09-2024 take 1 capsule by mouth three times daily as needed benzonatate (TESSALON PERLES) 100 mg capsule Indications: Respiratory infection Take 1 capsule by mouth three times a day as needed for up to 7 days. 21 capsule 06/02/2024 06/09/2024 Active benztropine mesylate 1 mg oral tablet (11 sources) Anticholinergic, Antihistamine Start: 03-09-2024 take 1 tablet by mouth twice daily as needed Blood-Glucose Meter (5 sources) Start: 11-22-2023 End: 11-23-2023 Blood-Glucose Meter Indications: Controlled type 2 diabetes mellitus without complication, without long-term current use of insulin ([facility]) Test One time a day. Insulin Dep? No E11.9 DM 2 1 Each 1 11/22/2023 11/23/2023 Active Start: 11-21-2023 End: 11-22-2023 Blood-Glucose Meter Indicati ons: Controlled type 2 diabetes mellitus without complication, without long-term current use of insulin (HCC) Test One time a day. Insulin Dep? No E11.9 DM 2 1 Each 1 11/21/2023 11/22/2023 Discontinued Start: 11-21-2023 End: 11-22-2023 Blood-Glucose Meter Indicati ons: Controlled type 2 diabetes mellitus without complication, without long-term current use of insulin (HCC) Test One time a day. Insulin Dep? No E11.9 DM 2 1 Each 1 11/21/2023 11/22/2023 Active Comment on above: Test One time a day. Insulin Dep? No E11.9 DM 2 calcium carbonate 1250 mg / cholecalciferol 600 unt oral tablet (16 sources) Vitamin D Start: 024 celecoxib 400 mg oral capsule (20 sources) Nonsteroidal Anti-inflammatory Drug Start: 025 End: 025 take 1 capsule by mouth once daily at mealtime celecoxib (CELEBREX) 400 mg capsule Indications: Chronic midline low back pain, unspecified whether sciatica present , Radiculopathy of lumbar region Take 1 capsule by mouth once daily. Take with food 30 capsule 2 05/12/2025 Active Start: 10-17-2024 End: 12-23-2024 take 1 capsule by mouth once daily at mealtime celecoxib (CELEBREX) 200 mg capsule Indications: Lumbago Take 1 capsule by mouth once daily. Take with food 30 capsule 11 10/17/2024 12/23/2024 Discontinued cephalexin 500 mg oral capsule (20 sources) Cephalosporin Antibacterial Start: 07-22-2025 take 1 capsule by mouth three times daily Start: 07-17-2024 take 1 capsule by mo [facility] every six hours Start: 07-23-2023 End: 07-28-2023 take 1 capsule by mouth four times daily cephALEXin (KEFLEX) 500 mg capsule Indications: Dental infection Take 1 capsule by mouth four times daily for 5 days. 20 capsule 07/23/2023 07/23/2023 Discontinued Start: 02-19-2023 End: 02-26-2023 take 1 capsule by mouth three times daily cephALEXin (KEFLEX) 500 mg capsule Indications: Cellulitis of right lower extremity Take 1 capsule by mouth three times daily for 7 days. 21 capsule 0 02/19/2023 02/26/2023 Comment on above: Take 1 capsule by [facility] three times daily for 7 days. Take 1 capsule by [facility] four times daily for 5 days. citalopram 40 mg oral tablet (20 sources) Serotonin Reuptake Inhibitor Start: 03-12-20 take 1 tablet by mouth once daily Comment on above: Take 40 mg by mouth once daily. [facility] codeine sulfate 30 mg oral tablet (1 source) Opioid Agonist Start: 08-21-20 End: 08-28-20 take 1 tablet by mouth every eight hours as needed for pain codeine 30 mg tablet Indications: Chronic radicular low back pain , Hip pain, left Take 1 tablet by mouth every 8 hours as needed for pain for up to 7 days. To replace prescription for Tylenol #3 which is not available. Patient may take Tylenol 325 mg when takes codeine 21 tablet 0 08/21/2023 08/28/2023 Active Comment on above: Take 1 tablet by [facility] every 8 hours as needed for pain for up to 7 days. To replace prescription for Tylenol #3 which is not available. Patient may take Tylenol 325 mg when takes codeine cyclobenzaprine hydrochloride 10 mg oral tablet (20 sources) Muscle Relaxant Start: 12-10-19 End: 05-29-20 take 1 tablet by mouth three times daily Start: 09-01-2022 End: 09-26-2022 take 1 tablet by mouth three times daily as needed for muscle spasms cyclobenzaprine (FLEXERIL) 10 mg tablet Indications: Lumbago Take 1 tablet by mouth three times daily as needed for muscle spasm. May make drowsy 30 tablet 2 09/26/2022 Active Start: 03-02-2022 End: 07-06-2022 take 1 tablet by mouth three times daily as needed for muscle spasms cyclobenzaprine (FLEXERIL) 10 mg tablet Indications: Lumbago Take 1 tablet by mouth three times daily as needed for muscle spasm. May make drowsy 30 tablet 0 07/07/2022 Active Start: 10-13-2021 End: 02-28-2022 take 1 tablet by mouth three times daily as needed for muscle spasms cyclobenzaprine (FLEXERIL) 10 mg tablet Indications: Lumbago Take 1 tablet by mouth three times daily as needed for muscle spasm. May make drowsy 30 tablet 0 10/13/2021 02/28/2022 Discontinued Comment on above: Take 1 tablet by kathrin th three times daily as needed for muscle spasm. May make drowsy Take 1 tablet by kathrin th three times a day as needed for muscle spasm. May make drowsy diphenhydrAMINE hydrochloride 25 mg oral capsule (20 sources) Histamine-1 Receptor Antagonist Start: 11-11-19 End: 04-24-20 take 1 capsule by mouth every six hours as needed diphenhydrAMINE (BENADRYL) 25 mg capsule Take 1 capsule by mouth every 6 hours as needed for itching/rash. 80 capsule 2 04/24/2024 Active Comment on above: Take 1 capsule by mo ut every 6 hours as needed for Itching/Rash. docusate sodium 100 mg oral capsule (16 sources) Start: 09-28-19 take 1 capsule by mouth once daily doxycycline hyclate 100 mg oral capsule (12 sources) Tetracycline-class Drug Start: 06-02-20 End: 06-09-20 take 1 capsule by mouth twice daily doxycycline hyclate (VIBRAMYCIN) 100 mg capsule Indications: Respiratory infection Take 1 capsule (100 mg) by mouth two times a day for 7 days. 14 capsule 06/02/2024 06/09/2024 Active Start: 02-13-2024 End: 03-09-2024 take 1 capsule by mouth twice daily Doxycycline Hyclate 100 mg capsule Discontinued 100 mg PO TWICE A DAY 28 14 0 February 12, 2024 11:00pm March 09, 2024 7:01pm dulaglutide (TRULICITY) 3 mg/0.5 mL pen injector (20 sources) Start: 05-12-2025 inject 1 dose by subcutaneous injection every week dulaglutide (TRULICITY) 3 mg/0.5 mL pen injector Indications: Uncontrolled type 2 diabetes mellitus with hyperglycemia (HCC) Inject 3 mg subcutaneously one time a week. Inject dose once per week. Discard Pen After 6 mL 2 05/12/2025 Active Start: 02-17-2025 End: 05-12-2025 inject 1 dose by subcutaneous injection every week dulaglutide (TRULICITY) 3 mg/0.5 mL pen injector Indications: Uncontrolled type 2 diabetes mellitus with hyperglycemia (HCC) Inject 3 mg subcutaneously one time a week. Inject dose once per week. Discard Pen After 6 mL 1 02/17/2025 05/12/2025 Discontinued Start: 02-17-2025 inject 1 dose by sub cutaneous injection every week dulaglutide (TRULICITY) 3 mg/0.5 mL pen injector Indications: Uncontrolled type 2 diabetes mellitus with hyperglycemia (HCC) Inject 3 mg subcutaneously one time a week. Inject dose once per week. Discard Pen After 6 mL 1 02/17/2025 Active Start: 01-01-2025 End: 02-17-2025 inject 1 dose by subcutaneous injection every week dulaglutide (TRULICITY) 3 mg/0.5 mL pen injector Indications: Uncontrolled type 2 diabetes mellitus with hyperglycemia (HCC) Inject 3 mg subcutaneously one time a week. Inject dose once per week. Discard Pen After 6 mL 1 01/01/2025 02/17/2025 Discontinued Start: 01-01-2025 inject 1 dose by sub cutaneous injection every week dulaglutide (TRULICITY) 3 mg/0.5 mL pen injector Indications: Uncontrolled type 2 diabetes mellitus with hyperglycemia (HCC) Inject 3 mg subcutaneously one time a week. Inject dose once per week. Discard Pen After 6 mL 1 01/01/2025 Active ferrous sulfate 325 mg oral tablet (20 sources) Start: 09-26-2023 End: 04-05-2025 take 1 tablet by mouth once ferrous sulfate 325 mg (65 mg iron) tablet Take 1 tablet by mouth every Sunday, Sunday, and Sunday. 15 tablet 5 04/06/2025 Active Start: 04-27-2023 End: 09-24-2023 take 1 tablet by mouth once ferrous sulfate 325 mg (65 mg iron) tabl et Take 1 tablet by mouth every Sunday,Sunday,Sunday. 15 tablet 2 04/27/2023 09/24/2023 Discontinued Start: 09-07-2022 Comment on above: Take 1 tablet by kathrin th every Sunday,Sunday,Sunday. Take 1 tablet by kathrin th every Sunday, Sunday, and Sunday. 120 actuat formoterol fumarate 0.005 mg/actuat / mometasone furoate 0.05 mg/actuat metered dose inhaler (20 sources) Corticosteroid, beta2-Adrenergic Agonist Start: End: take 1 puff(s) by mouth twice daily mometasone-formote rol (DULERA) 50-5 mcg/actuation HFA aerosol inhaler Indications: Intermittent asthma without complication, unspecified asthma severity (HCC) Inhale 1 puff as instructed two times a day. Rinse mouth out after use. 13 g 5 01/20/2025 Active Start: 12-07-2023 End: 10-17-2024 take 1 puff(s) by inhalation twice daily mometasone-formoterol (DULERA) 50-5 mcg/actuation HFA aerosol inhaler Indications: Intermittent asthma without complication, unspecified asthma severity Inhale 1 Puff as instructed two times a day. 13 g 5 04/22/2024 10/17/2024 Discontinued Start: 07-31-2023 End: 12-07-2023 take 2 puff(s) by mouth twice daily DULERA 50-5 mcg/actuation HFA aerosol inhaler Indications: Chronic cough , Intermittent asthma without complication, unspecified asthma severity INHALE TWO PUFFS BY MOUTH TWICE DAILY DIRECTED *rinse MOUTH OUT AFTER use* 13 g 2 10/16/2023 12/07/2023 Discontinued Start: 06-29-2018 take 2 puff(s) by in halation twice daily DULERA 200-5 mcg/actuation inhaler Indications: Moderate persistent asthma without complication Inhale 2 Puffs as instructed twice daily. 13 g 5 06/29/2018 Active Comment on above: Inhale 2 Puffs as in structed twice daily. Inhale 2 Puffs as in structed two times a day. Rinse mouth out after use. INHALE TWO PUFFS BY MOUTH TWICE DAILY DIRECTED *rinse MOUTH OUT AFTER use* Inhale 1 Puff as ins tructed two times a day. furosemide 40 mg oral tablet (20 sources) Loop Diuretic Start: 07-04-2025 take 1 tablet by mouth twice daily Start: 04-05-2025 take 1 tablet by kathrin th once daily furosemide (LASIX) 40 mg tablet Indications: Bilateral leg edema Take 1 tablet by mouth once daily. 30 tablet 5 04/05/2025 Active Start: 04-24-2024 End: 04-03-2025 take 1 tablet by mouth once daily furosemide (LASIX) 40 mg tablet Indications: Bilateral leg edema Take 1 tablet by mouth once daily. 30 tablet 5 10/20/2024 04/03/2025 Discontinued Start: 04-13-2024 End: 04-24-2024 take 1-2 tablets by mouth once daily furosemide (LASIX) 20 mg tablet Indications: Cellulitis of right lower extremity , Bilateral leg edema Take 1-2 tablets by mouth once daily. 60 tablet 1 04/13/2024 04/24/2024 Discontinued Start: 09-07-2022 take 1 tablet by kathrin th twice daily Start: 09-07-2022 Furosemide Act ros 20 MG PO DAILY September 07, 2022 12:00am x7 days, currently on day 5 Start: 09-01-2022 End: 04-11-2024 take 1-2 tablets by mouth once daily furosemide (LASIX) 20 mg tablet Indications: Cellulitis of right lower extremity , Bilateral leg edema Take 1-2 tablets by mouth once daily. 60 tablet 1 07/02/2023 10/05/2023 Discontinued Comment on above: Take 1 tablet by kathrin th once daily. Take 1-2 tablets by mouth once daily. As directed Take 1-2 tablets by mouth once daily. gentamicin 0.001 mg/mg topical ointment (11 sources) Start: 4 glimepiride 4 mg oral tablet (20 sources) Sulfonylurea Start: 3 End: take 1 tablet by mouth once daily at breakfast, then take 1 tablet by mouth once daily glimepiride (AMARYL) 4 mg tablet Indications: Uncontrolled type 2 diabetes mellitus with hyperglycemia (HCC) Take 1 tablet by mouth daily with breakfast. Dose change, take one daily 30 tablet 10/14/2024 Active Start: 01-17-2021 End: 02-02-2022 take 1 tablet by mouth once daily at breakfast, then take 1 tablet by mouth once daily glimepiride (AMARYL) 4 mg tablet Indications: Uncontrolled type 2 diabetes mellitus with hyperglycemia (HCC) Take 1 tablet by mouth daily with breakfast. Dose change, take one daily 30 tablet 02/02/2022 Active Start: 11-08-2019 take 2 tablets by mo msh once daily Start: 11-08-2019 take 4 mg by mouth once daily Glimepiride Active 4 MG PO DAILY November 08, 2019 1:00am Comment on above: Take 1 tablet by kathrin daily with breakfast. Dose change, take one daily glucose 4000 mg chewable tablet (20 sources) Start: 024 glucose 4 gram chewable tablet Take 4 tablets by mouth as needed for low blood sugar. 50 tablet 2 04/24/2024 Active hydrocortisone acetate 25 mg rectal suppository (1 source) Corticosteroid Start: 023 End: 023 take 25 mg rectal route every twelve hours as needed hydrocortisone (ANUSOL-HC) 25 mg suppository 1 Suppository by RECTAL route twice daily as needed (hemorrhoid) for up to 7 days. 14 Suppository 0 03/06/2023 03/13/2023 Active Comment on above: 1 Suppository by REC ANUSHKA route twice daily as needed (hemorrhoid) for up to 7 days. lamoTRIgine 200 mg oral tablet (20 sources) Mood Stabilizer, Anti-epileptic Agent Start: take 1 tablet by mouth twice daily Start: 10-10-2016 End: 04-24-2024 take 1 tablet by mouth once daily lamoTRIgine (LAMICTAL) 200 mg tablet Indications: Moderate depressed bipolar I disorder (HCC) Take 1 tablet by mouth once daily. 10/10/2016 04/24/2024 Discontinued Comment on above: Take 1 tablet by kathrin once daily. lansoprazole 30 mg delayed release oral capsule (20 sources) Proton Pump Inhibitor Start: 12-30-2020 End: 05-27-2025 take 1 capsule by mouth once daily Comment on above: Take 1 capsule by mo [facility] daily before breakfast. levoFLOXacin 500 mg oral tablet (17 sources) Quinolone Antimicrobial Start: 02-26-2025 take 1 tablet by mouth once daily Start: 01-09-2024 End: 03-09-2024 take 1 tablet by mouth once daily Levofloxacin 500 mg tablet Discontinued 500 mg PO DAILY 14 14 0 January 08, 2024 11:00pm March 09, 2024 7:02pm lidocaine 0.05 mg/mg medicated patch (20 sources) Antiarrhythmic, Amide Local Anesthetic Start: 03-15-2024 End: 01-20-2025 apply 1 dose transdermal route every twenty-four hours lidocaine (LIDODERM) 5 % Indications: Rib pain Apply 1 patch as directed every 24 hours. Remove after 12 hours. 30 patch 01/20/2025 Active loratadine 10 mg oral tablet (20 sources) Start: 07-07-2013 End: 10-17-2024 take 1 tablet by mouth once daily Comment on above: Take 1 tablet by kathrin th once daily. LORazepam 1 mg oral tablet (20 sources) Benzodiazepine Start: 12-11-2013 take 1 tablet by mouth twice daily as needed for anxiety Comment on above: Take 1 tablet by kathrin th twice daily. As needed. metFORMIN hydrochloride 500 mg oral tablet (20 sources) Biguanide Start: 06-01-2022 take 500 mg by mouth at lunch Metformin Active 500 MG PO WITH LUNCH May 31, 2022 11:00pm Start: 07-01-2019 End: 10-27-2024 take 2 tablets by mouth twice daily Start: 07-01-2019 take 1000 mg by mouth twice da tonny Metformin Active 1000 MG PO TWICE A DAY July 01, 2019 12:00am Comment on above: Take 2 tablets by mo ut twice daily with meals. Take one additional 500 mg tab with breakfast or lunch until BS less than 250 Take 2 tablets by mo uth two times a day with meals. Take one additional 500 mg tab with breakfast or lunch until BS less than 250 montelukast 10 mg oral tablet (20 sources) Leukotriene Receptor Antagonist Start: 08-10-2016 End: 10-14-2024 take 1 tablet by mouth at bedtime Comment on above: Take 1 tablet by kathrin th daily at bedtime. naproxen 500 mg oral tablet (20 sources) Nonsteroidal Anti-inflammatory Drug Start: 07-01-2019 End: 08-06-2023 take 1 tablet by mouth twice daily as needed for pain Start: 04-23-2015 End: 03-07-2018 take 1 tablet by mouth twice daily Naproxen (Naprosyn) 500 MG tablet Discontinued 500 mg PO TWICE A DAY 10 0 April 22, 2015 11:00pm March 07, 2018 6:24pm Comment on above: Take 1 tablet by kathrin twice daily as needed (for pain/inflammation). Take with food. Take 1 tablet by [facility] two times a day as needed (for pain/inflammation). Take with food. Nebulizer (20 sources) Start: 07-21-2015 Nebulizer Indications: Moderate persistent asthma without complication (HCC) NEBULIZER and Supplies FOR HOME USE. DX: J45.40 1 Device 0 07/21/2015 Active Start: 07-21-2015 Nebulizer Meeta cations: Moderate persistent asthma without complication NEBULIZER and Supplies FOR HOME USE. DX: J45.40 1 Device 0 07/21/2015 Active Comment on above: NEBULIZER and Suppli es FOR HOME USE. DX: J45.40 nitrofurantoin, macrocrystals 25 mg / nitrofurantoin, monohydrate 75 mg oral capsule (1 source) Nitrofuran Antibacterial Start: 07-04-20 take 1 capsule by mouth every twelve hours at mealtime nystatin 234102 unt/ml oral suspension (20 sources) Polyene Antifungal Start: 11-20-19 End: 01-06-20 nystatin (MYCOSTATIN) 100,000 unit/mL suspension Indications: Mouth pain Take 5 mL by mouth four times daily. 1tsp swish in mouth for several minutes, then swallow (or expectorate) 4 times daily until gone. 600 mL 0 12/07/2023 01/06/2024 Active Start: 05-14-2018 End: 02-19-2023 nystatin (NYSTOP) powder Corinne ly 1 application to affected area four times daily. 1 Bottle 3 05/14/2018 02/19/2023 Discontinued Comment on above: Apply 1 application to affected area four times daily. Take 5 mL by mouth f our times daily. 1tsp swish in mouth for several minutes, then swallow (or expectorate) 4 times daily until gone. potassium chloride 10 meq extended release oral capsule (20 sources) Start: 2 End: 3 take 10 mEq by mouth once daily Potassium Chloride Active 10 MEQ PO DAILY September 07, 2022 12:00am Comment on above: Take 1 capsule by [facility] once daily. pramipexole dihydrochloride 1.5 mg oral tablet (20 sources) Nonergot Dopamine Agonist Start: 2 End: 5 take 1 tablet by mouth at bedtime Start: 04-17-2022 End: 04-18-2022 take 1 tablet by mouth once daily at bedtime pramipexole (MIRAPEX) 1.5 mg tablet Indications: Restless leg syndrome Take 1 tablet by mouth daily at bedtime. 90 tablet 1 04/18/2022 Active Start: 11-23-2021 End: 04-15-2022 take 1 tablet by mouth once daily at bedtime pramipexole (MIRAPEX) 1 mg tablet Indications: Restless leg syndrome Take 1 tablet by mouth daily at bedtime. 30 tablet 3 03/14/2022 04/15/2022 Discontinued Start: 09-23-2021 End: 11-21-2021 take 1 tablet by mouth once daily at bedtime pramipexole (MIRAPEX) 1 mg tablet Indications: Restless leg syndrome Take 1 tablet by mouth daily at bedtime. 30 tablet 1 09/23/2021 11/21/2021 Discontinued Comment on above: Take 1 tablet by kathrin th daily at bedtime. predniSONE 10 mg oral tablet (20 sources) Start: 11-13-2024 End: 11-22-2024 predniSONE (DELTASONE) 10 mg tablet Indications: Acute midline low back pain with left-sided sciatica Take 4 tabs daily for 3 days, then 2 tabs daily for 3 days, then 1 tab daily for 3 days with food. 21 tablet 11/13/2024 11/22/2024 Active Start: 05-13-2024 End: 05-17-2024 take 2 tablets by mouth once daily at mealtime predniSONE (DELTASONE) 20 mg tablet Indications: Wheezing Take 2 tablets by mouth once daily for 4 days. Take daily with food. 8 tablet 05/13/2024 05/17/2024 Active Start: 09-18-2023 End: 12-07-2023 predniSONE (DELTASONE) 10 mg tablet Indications: Rib pain Take 2 tabs po BID for 2 days then 1 tab po BID for 2 days then 1/2 tab po BID for 2 days then 1/2 tab daily for 2 days then stop 15 tablet 09/18/2023 12/07/2023 Discontinued Start: 02-19-2023 End: 05-04-2023 predniSONE (DELTASONE) 10 mg tablet Indications: Chronic radicular low back pain , Chronic pain of both knees Take 2 tabs po BID for 2 days then 1 tab po BID for 2 days then 1/2 tab po BID for 2 days then 1/2 tab daily for 2 days then stop 15 tablet 0 02/19/2023 05/04/2023 Discontinued Start: 09-07-2022 End: 06-20-2023 take 3 tablets by mouth once daily Prednisone 20 mg tablet Discontinued 60 mg PO DAILY September 07, 2022 12:00am June 20, 2023 2:20pm Start: 09-07-2022 End: 06-20-2023 take 60 mg by mouth once daily Prednisone Discontinued 60 MG PO DAILY September 07, 2022 1:00am June 20, 2023 3:20pm Start: 06-01-2022 take 60 mg by mouth once daily Prednisone Active 60 MG PO DAILY June 01, 2022 12:00am Comment on above: Take 2 tabs po BID f or 2 days then 1 tab po BID for 2 days then 1/2 tab po BID for 2 days then 1/2 tab daily for 2 days then stop promethazine hydrochloride 12.5 mg oral tablet (20 sources) Phenothiazine Start: 04-14-20 take 1 tablet by mouth every six hours as needed promethazine (PHENERGAN) 12.5 mg tablet Take 1 tablet by mouth four times a day as needed for nausea/vomiting. 120 tablet 1 04/14/2025 Active Start: 04-13-2024 End: 04-09-2025 take 1 tablet by mouth every six hours as needed promethazine (PHENERGAN) 12.5 mg tablet Take 1 tablet by mouth four times a day as needed for nausea/vomiting. 120 tablet 1 10/17/2024 04/09/2025 Discontinued Start: 06-01-2023 End: 04-11-2024 take 1 tablet by mouth every six hours as needed promethazine (PHENERGAN) 12.5 mg tablet Take 1 tablet by mouth four times daily as needed for nausea/vomiting. 120 tablet 1 06/01/2023 08/06/2023 Discontinued Comment on above: Take 1 tablet by kathrin th four times daily as needed for nausea/vomiting. Take 1 tablet by kathrin th four times a day as needed for nausea/vomiting. QUEtiapine 25 mg oral tablet (20 sources) Atypical Antipsychotic Start: 04-07-2024 take 3 tablets by mouth once daily sulfamethoxazole 800 mg / trimethoprim 160 mg oral tablet (20 sources) Dihydrofolate Reductase Inhibitor Antibacterial, Sulfonamide Antimicrobial Start: 06-25-2024 Start: 09-28-2023 End: 03-09-2024 Sulfamethoxazole-Trimethopri m (Bactrim Ds) 800-160 mg tablet Discontinued 1 {tbl} PO TWICE A DAY 14 October 10, 2023 12:00am March 09, 2024 7:02pm Start: 08-22-2023 take 1 tablet by kathrin th twice daily Sulfamethoxazole-Trimethoprim (Bactrim D s) 800-160 mg tablet Active 1 TABLET PO TWICE A DAY 28 August 22, 2023 12:00am Start: 04-27-2023 End: 05-11-2023 take 2 tablets by mouth twice daily sulfamethoxazole-trimethoprim (BACTRIM D S) 800-160 mg per tablet Take 2 tablets by mouth twice daily for 14 days. 56 tablet 0 04/27/2023 05/11/2023 Active Start: 03-06-2023 End: 03-13-2023 take 1 tablet by mouth twice daily sulfamethoxazole-trimethoprim (BACTRIM D S) 800-160 mg per tablet Indications: Urinary tract infection with hematuria, site unspecified Take 1 tablet by mouth twice daily for 7 days. 14 tablet 0 03/06/2023 03/13/2023 Active Comment on above: Take 1 tablet by kathrin th twice daily for 7 days. Take 2 tablets by mo [facility] twice daily for 14 days. SUMAtriptan 25 mg oral tablet (20 sources) Serotonin-1b and Serotonin-1d Receptor Agonist Start: 08-10-2016 End: 05-12-2025 Comment on above: Take 1 tablet by kathrin th at onset of headache and may repeat in 2 hrs if needed. topiramate 100 mg oral tablet (20 sources) Start: 07-01-2019 End: 05-27-2025 take 1 tablet by mouth twice daily Comment on above: Take 1 tablet by kathrin th twice daily. Take 1 tablet by kathrin th two times a day. traMADol hydrochloride 50 mg oral tablet (5 sources) Opioid Agonist Start: 09-08-2024 End: 09-15-2024 take 1 tablet by mouth every six hours as needed for pain traMADol (ULTRAM) 50 mg tablet Indications: Lumbago Take 1 tablet by mouth every 6 hours as needed for pain for up to 7 days. 28 tablet 09/08/2024 09/15/2024 Active Start: 08-20-2024 End: 08-27-2024 take 1 tablet by mouth every six hours as needed for pain traMADol (ULTRAM) 50 mg tablet Indications: Lumbago Take 1 tablet by mouth every 6 hours as needed for pain for up to 7 days. 28 tablet 08/20/2024 08/27/2024 Active Start: 07-01-2024 End: 08-01-2024 take 1 tablet by mouth every six hours as needed for pain traMADol (ULTRAM) 50 mg tablet Indications: Lumbago Take 1 tablet by mouth every 6 hours as needed for pain for up to 7 days. 28 tablet 07/25/2024 08/01/2024 Active Completed/Discontinued Medications Medication Drug Class(es) Dates Sig (Normalized) Sig (Original) acetaminophen 325 mg / oxyCODONE hydrochloride 5 mg oral tablet (16 sources) Opioid Agonist Start: 09-28-2023 End: 03-09-2024 Oxycodone-Acetamino phen (Percocet) 5-325 mg tablet Discontinued 1 {tbl} PO EVERY 6 HOURS as needed for pain 28 7 0 September 28, 2023 March 09, 2024 7:02pm Other acute postprocedural pain Other acute postprocedural pain aspirin 81 mg delayed release oral tablet (16 sources) Platelet Aggregation Inhibitor, Nonsteroidal Anti-inflammatory Drug Start: 09-28-2023 End: 03-09-2024 take 1 tablet by mouth once daily Aspirin 81 mg tablet,delayed release (DR/EC) Discontinued 81 mg PO DAILY 30 30 0 September 28, 2023 12:00am March 09, 2024 7:01pm bacitracin 0.5 unt/mg topical ointment (20 sources) Start: 06-19-2023 End: 10-17-2024 bacitracin 500 unit/gram ointment APPLY TO THE AFFECTED AREA(S) EVERY DAY 28 g 1 06/19/2023 10/17/2024 Discontinued Comment on above: APPLY TO THE AFFECTE D AREA(S) EVERY DAY Blood-Glucose Meter (TRUE METRIX GLUCOSE METER) (20 sources) Start: 09-14-2022 End: 04-24-2024 Blood-Glucose Meter (TRUE METRIX GLUCOSE METER) Indications: Controlled type 2 diabetes mellitus without complication, without long-term current use of insulin (HCC) Use DIRECTED. Dx:Diabetes 11.9 1 Each 09/14/2022 04/24/2024 Discontinued Start: 09-14-2022 End: 04-24-2024 Blood-Glucose Meter (TRUE ME TRIX GLUCOSE METER) Indications: Controlled type 2 diabetes mellitus without complication, without long-term current use of insulin (HCC) Use DIRECTED. Dx:Diabetes 11.9 1 Each 0 09/14/2022 04/24/2024 Discontinued Start: 09-14-2022 Blood-Glucose Meter (TRUE METRIX GLUCOSE METER) Indications: Controlled type 2 diabetes mellitus without complication, without long-term current use of insulin (HCC) Use DIRECTED. Dx:Diabetes 11.9 1 Each 0 09/14/2022 Active Comment on above: Use DIRECTED. Dx: Diabetes 11.9 chlorhexidine gluconate 1.2 mg/ml mouthwash (20 sources) Start: 07-23-20 End: 10-17-19 Chlorhexidine Gluconate (PERIDEX) 0.12 % solution Indications: Dental infection Use 15 mL as instructed two times a day. Rinse around mouth for 30 seconds then expectorate 118 mL 07/23/2023 10/17/2024 Discontinued Comment on above: Use 15 mL as instruc javan two times a day. Rinse around mouth for 30 seconds then expectorate ciprofloxacin 750 mg oral tablet (14 sources) Quinolone Antimicrobial Start: 10-24-19 24 End: 03-09-20 24 take 1 tablet by mouth twice daily Ciprofloxacin Hcl 750 mg tablet Discontinued 750 mg PO TWICE A DAY 28 14 0 October 24, 2023 12:00am March 09, 2024 7:01pm CPAP (20 sources) Start: 01-02-20 End: 05-20-20 CPAP Indications: MARIA TERESA on CPAP Needs replacement CPAP @ 15 cm of water with humidification. Mask (per patient preference) optional chin strap (if indicated) , filters, tubing, humidifier and lifetime supplies. G47.33 MARIA TERESA on CPAP 1 each 01/01/2025 05/20/2025 Discontinued (Non-Compliance) Start: 01-01-2025 CPAP Indicatio ns: MARIA TERESA on CPAP Needs replacement CPAP @ 15 cm of water with humidification. Mask (per patient preference) optional chin strap (if indicated) , filters, tubing, humidifier and lifetime supplies. G47.33 MARIA TERESA on CPAP 1 each 01/01/2025 Active Start: 01-01-2025 End: 01-01-2025 CPAP Indications: MARIA TERESA on CPA P Needs replacement CPAP @ 15 cm of water with humidification. Mask (per patient preference) optional chin strap (if indicated) , filters, tubing, humidifier and lifetime supplies. G47.33 MARIA TERESA on CPAP 1 each 01/01/2025 01/01/2025 Discontinued Start: 04-24-2024 End: 01-01-2025 CPAP Indications: MARIA TERESA on CPA P Needs replacement CPAP @ 15 cm of water with humidification. Mask (per patient preference) optional chin strap (if indicated) , filters, tubing, humidifier and lifetime supplies. G47.33 MARIA TERESA on CPAP 1 Each 04/24/2024 01/01/2025 Discontinued Start: 04-24-2024 CPAP Indicatio ns: MARIA TERESA on CPAP Needs replacement CPAP @ 15 cm of water with humidification. Mask (per patient preference) optional chin strap (if indicated) , filters, tubing, humidifier and lifetime supplies. G47.33 MARIA TERESA on CPAP 1 Each 04/24/2024 Active Start: 04-24-2024 End: 04-24-2024 CPAP Indications: MARIA TERESA on CPA P Continue CPAP @ 15 cm of water with humidification. Mask (per patient preference) optional chin strap (if indicated) , filters, tubing, humidifier and lifetime supplies. G47.33 MARIA TERESA on CPAP 1 Each 0 04/24/2024 04/24/2024 Discontinued Start: 04-24-2024 CPAP Indicatio ns: MARIA TERESA on CPAP Needs replacement CPAP @ 15 cm of water with humidification. Mask (per patient preference) optional chin strap (if indicated) , filters, tubing, humidifier and lifetime supplies. G47.33 MARIA TERESA on CPAP 1 Each 0 04/24/2024 Active Start: 09-14-2022 End: 04-24-2024 CPAP Indications: MARIA TERESA on CPA P Continue CPAP @ 15 cm of water with humidification. Mask (per patient preference) optional chin strap (if indicated) , filters, tubing, humidifier and lifetime supplies. G47.33 MARIA TERESA on CPAP 1 Each 09/14/2022 04/24/2024 Discontinued Start: 09-14-2022 End: 04-24-2024 CPAP Indications: MARIA TERESA on CPA P Continue CPAP @ 15 cm of water with humidification. Mask (per patient preference) optional chin strap (if indicated) , filters, tubing, humidifier and lifetime supplies. G47.33 MARIA TERESA on CPAP 1 Each 0 09/14/2022 04/24/2024 Discontinued Start: 09-14-2022 CPAP Indicatio ns: MARIA TERESA on CPAP Continue CPAP @ 15 cm of water with humidification. Mask (per patient preference) optional chin strap (if indicated) , filters, tubing, humidifier and lifetime supplies. G47.33 MARIA TERESA on CPAP 1 Each 0 09/14/2022 Active Start: 11-11-2018 End: 09-14-2022 CPAP Indications: MARIA TERESA on CPA P Continue CPAP @ 15 cm of water with humidification. Mask (per patient preference) optional chin strap (if indicated) , filters, tubing, humidifier and lifetime supplies. G47.33 MARIA TERESA on CPAP 1 Device 0 11/11/2018 09/14/2022 Discontinued Start: 11-11-2018 CPAP Indicatio ns: MARIA TERESA on CPAP Continue CPAP @ 15 cm of water with humidification. Mask (per patient preference) optional chin strap (if indicated) , filters, tubing, humidifier and lifetime supplies. G47.33 MARIA TERESA on CPAP 1 Device 0 11/11/2018 Active Start: 05-06-2018 End: 05-20-2025 CPAP Needs lifetime supplies (mask, hoses, headgear, filters, water chamber) G47.33 (already has CPAP) 1 Device 05/06/2018 05/20/2025 Discontinued (Non-Compliance) Start: 05-06-2018 CPAP Needs lif etime supplies (mask, hoses, headgear, filters, water chamber) G47.33 (already has CPAP) 1 Device 05/06/2018 Active Start: 05-06-2018 CPAP Needs lif etime supplies (mask, hoses, headgear, filters, water chamber) G47.33 (already has CPAP) 1 Device 0 05/06/2018 Active Comment on above: Needs lifetime suppl ies (mask, hoses, headgear, filters, water chamber) G47.33 (already has CPAP) Continue CPAP @ 15 c m of water with humidification. Mask (per patient preference) optional chin strap (if indicated) , filters, tubing, humidifier and lifetime supplies. G47.33 MARIA TERESA on CPAP 0.5 ml dulaglutide 1.5 mg/ml auto-injector (20 sources) GLP-1 Receptor Agonist Start: 10-17-19 End: 05-12-20 inject 0.75 mg by subcutaneous injection every week dulaglutide (TRULICITY) 0.75 mg/0.5 mL pen injector Indications: Uncontrolled type 2 diabetes mellitus with hyperglycemia (HCC) Inject 0.75 mg subcutaneously one time a week. Inject dose once per week. Discard Pen After 2 mL 1 10/17/2024 05/12/2025 Discontinued Start: 07-01-2024 End: 01-01-2025 inject 1 dose by subcutaneous injection every week dulaglutide (TRULICITY) 1.5 mg/0.5 mL pen injector Inject 1.5 mg subcutaneously one time a week. Inject dose once per week. Discard Pen After 2 mL 2 12/03/2024 01/01/2025 Discontinued Start: 04-24-2024 End: 07-01-2024 inject 0.75 mg by subcutaneous injection every week dulaglutide (TRULICITY) 0.75 mg/0.5 mL pen injector Inject 0.75 mg subcutaneously one time a week. Inject dose once per week. Discard Pen After 2 mL 1 06/10/2024 07/01/2024 Discontinued 120 actuat fluticasone propionate 0.11 mg/actuat metered dose inhaler (4 sources) Corticosteroid Start: 06-02-2024 End: 07-02-2024 take 1 puff(s) by mouth twice daily fluticasone (FLOVENT HFA) 110 mcg/actuation inhaler Indications: Respiratory infection Inhale 1 Puff as instructed two times a day. Shake well before use. Rinse mouth after use. 1 Each 06/02/2024 07/02/2024 FREESTYLE FREEDOM LITE monitoring kit (20 sources) Start: 08-26-2018 End: 05-20-2025 FREESTYLE FREEDOM LITE monitoring kit USE DIRECTED 1 Each 08/26/2018 05/20/2025 Discontinued Start: 08-26-2018 FREESTYLE FREE DOM LITE monitoring kit USE DIRECTED 1 Each 08/26/2018 Active Start: 08-26-2018 FREESTYLE FREE DOM LITE monitoring kit USE DIRECTED 1 Each 0 08/26/2018 Active Comment on above: USE DIRECTED honey (MEDIHONEY) 80 % gel (3 sources) Start: 05-04-2023 End: 06-01-2023 honey (MEDIHONEY) 80 % gel Apply to affected area once daily. 88 mL 2 05/04/2023 06/01/2023 Discontinued Start: 05-04-2023 honey (MEDIHON EY) 80 % gel Apply to affected area once daily. 88 mL 2 05/04/2023 Active Comment on above: Apply to affected ar ea once daily. ketoconazole 20 mg/ml topical cream (20 sources) Azole Antifungal Start: 03-12-20 End: 02-20-20 ketoconazole (NIZORAL) 2 % cream Indications: Rash and nonspecific skin eruption Apply 1 application to affected area once daily. May increase to twice daily if needed. Treat 1 more week after rash resolves 30 g 0 03/12/2019 02/19/2023 Discontinued Comment on above: Apply 1 application to affected area once daily. May increase to twice daily if needed. Treat 1 more week after rash resolves methylPREDNISolone (5 sources) Corticosteroid Start: 07-23-20 End: 07-23-20 methylPREDNISolone (MEDROL DOSE-PACK) 4 mg Dose-Pack Indications: Right wrist pain As Instructed per package 21 tablet 07/23/2023 07/23/2023 Discontinued (Course of therapy completed) Start: 07-23-2023 End: 07-28-2023 methylPREDNISolone (MEDROL D OSE-PACK) 4 mg Dose-Pack Indications: Right wrist pain As Instructed per package 21 tablet 0 07/23/2023 07/28/2023 Active Start: 07-23-2023 End: 07-23-2023 methylPREDNISolone (MEDROL D OSE-PACK) 4 mg Dose-Pack Indications: Right wrist pain As Instructed per package 21 tablet 0 07/23/2023 07/23/2023 Discontinued (Course of therapy completed) Comment on above: As Instructed per zehra wagner mupirocin 0.02 mg/mg topical ointment (11 sources) RNA Synthetase Inhibitor Antibacterial Start: 04-27-2023 End: 06-01-2023 mupirocin (BACTROBAN) 2 % ointment Apply 1 application to affected area twice daily. Treat each sore for 10 days. 30 g 2 04/27/2023 06/01/2023 Discontinued Start: 03-06-2023 End: 03-16-2023 mupirocin (BACTROBAN) 2 % oi ntment Apply 1 application to affected area twice daily for 10 days. 15 g 0 03/06/2023 03/16/2023 Active Start: 09-01-2022 End: 09-11-2022 mupirocin (BACTROBAN) 2 % oi ntment Indications: Panniculitis , Rash and nonspecific skin eruption Apply 1 application to affected area twice daily for 10 days. or until healed. for abdomen open areas 15 g 0 09/01/2022 09/11/2022 Comment on above: Apply 1 application to affected area twice daily for 10 days. or until healed. for abdomen open areas Apply 1 application to affected area twice daily for 10 days. Apply 1 application to affected area twice daily. Treat each sore for 10 days. silver sulfADIAZINE 10 mg/ml topical cream (20 sources) Sulfonamide Antibacterial Start: 2022 End: 2024 silver sulfADIAZINE (SILVADENE) 1 % cream Apply 1 application to affected area once daily. 30 g 1 07/06/2023 01/29/2025 Discontinued Comment on above: Apply 1 application to affected area once daily. spironolactone 25 mg oral tablet (19 sources) Aldosterone Antagonist Start: 2020 take 1 tablet by mouth once daily spironolactone (ALDACTONE) 25 mg tablet Take 1 tablet by mouth once daily. 30 tablet 11 01/03/2021 Active Comment on above: Take 1 tablet by kathrin once daily. tirzepatide (MOUNJARO) 2.5 mg/0.5 mL pen injector (3 sources) Start: 2023 End: 2023 inject 2.5 mg by subcutaneous injection every week tirzepatide (MOUNJARO) 2.5 mg/0.5 mL pen injector Inject 2.5 mg subcutaneously one time a week. 2 mL 1 04/24/2024 04/25/2024 Discontinued Start: 04-24-2024 inject 2.5 mg by sub cutaneous injection every week tirzepatide (MOUNJARO) 2.5 mg/0.5 mL pen injector Inject 2.5 mg subcutaneously one time a week. 2 mL 1 04/24/2024 Active traZODone hydrochloride 100 mg oral tablet (20 sources) Serotonin Reuptake Inhibitor Start: 07-28-2015 End: 04-24-2024 take 1-2 tablets by mouth at bedtime as needed traZODone (DESYREL) 100 mg tablet 300 mg. Take 1 to 2 tablets by mouth at bedtime as needed. 0 07/28/2015 04/24/2024 Discontinued (Discontinued by another Health Care Provider) Start: 01-12-2015 End: 04-09-2024 take 3 tablets by mouth at bedtime Trazodone 100 MG tablet Discontinued 300 mg PO AT BEDTIME January 11, 2015 11:00pm April 09, 2024 8:54am depression Start: 01-12-2015 take 300 mg by mouth at bedtim e Trazodone Active 300 MG PO AT BEDTIME January 12, 2015 12:00am Comment on above: Take 1 to 2 tablets by mouth at bedtime as needed. 300 mg. Take 1 to 2 tablets by mouth at bedtime as needed. triamcinolone acetonide 1 mg/ml topical cream (20 sources) Corticosteroid Start: 09-01-2022 End: 02-19-2023 triamcinolone acetonide (KENALOG) 0.1 % cream Indications: Rash and nonspecific skin eruption Apply 1 application to affected area three times daily as needed. Apply sparingly to area for rash/itching on extremities or torso. 45 g 0 09/01/2022 02/19/2023 Discontinued Start: 03-12-2019 triamcinolone acetonide (KENALOG) 0.1 % cream Indications: Rash and nonspecific skin eruption Apply 1 application to affected area three times daily as needed. Apply sparingly to area for rash/itching on extremities or torso. 45 g 0 03/12/2019 Active Comment on above: Apply 1 application to affected area three times daily as needed. Apply sparingly to area for rash/itching on extremities or torso. TRUE METRIX GLUCOSE METER misc (20 sources) Start: 01-23-2018 End: 09-14-2022 TRUE METRIX GLUCOSE METER misc Indications: Controlled type 2 diabetes mellitus without complication, without long-term current use of insulin (HCC) use DIRECTED 1 Each 0 01/23/2018 09/14/2022 Discontinued Start: 01-23-2018 TRUE METRIX GL UCOSE METER misc Indications: Controlled type 2 diabetes mellitus without complication, without long-term current use of insulin (HCC) use DIRECTED 1 Each 0 01/23/2018 Active Comment on above: use DIRECTED urea 400 mg/ml topical cream (20 sources) Start: 09-27-2017 End: 04-24-2024 urea (CARMOL) 40 % crea Apply 1 application to affected area twice daily. 198.4 g 11 09/27/2017 04/24/2024 Discontinued Comment on above: Apply 1 application to affected area twice daily. Problems Active Problems Problem Classification Problem Date Documented Date Episodic/Chronic Abdominal hernia (20 sources) Umbilical hernia; Translations: [Umbilical hernia without obstruction or gangrene] Onset: 09-22-2016 09-22-2016 Episodic Abdominal pain (20 sources) Generalized abdominal pain; Translations: [Generalized abdominal pain] Episodic Acute bronchitis (20 sources) Acute viral bronchitis; Translations: [Acute bronchitis due to other specified organisms] 02-04-2019 Episodic Adjustment disorders (2 sources) Grief finding; Translations: [Adjustment disorder with depressed mood] Onset: 05-12-2025 05-12-2025 Chronic Allergic reactions (5 sources) Allergy status to other antibiotic agents status; Translations: [Allergy status to analgesic agent status] Onset: 04-06-2017 07-23-2023 Episodic Asthma (20 sources) Unspecified asthma, uncomplicated; Translations: [Uncomplicated moderate persistent asthma] Onset: 07-16-2015 Chronic Chronic obstructive pulmonary disease and bronchiectasis (20 sources) Acute exacerbation of chronic obstructive airways disease with asthma; Translations: [Chronic obstructive pulmonary disease with (acute) exacerbation] 06-09-2022 Chronic Chronic ulcer of skin (20 sources) Ulcer of lower extremity; Translations: [Non-pressure chronic ulcer of unspecified part of right lower leg with fat layer exposed] Onset: 09-18-2024 06-20-2023 Chronic Coagulation and hemorrhagic disorders (20 sources) Platelet count below reference range; Translations: [Thrombocytopenia, unspecified] Onset: 10-20-2024 Chronic Complications of surgical procedures or medical care (20 sources) Wound dehiscence; Translations: [Disruption of external operation (surgical) wound, not elsewhere classified, initial encounter] 10-17-2023 Episodic Deficiency and other anemia (20 sources) Pancytopenia; Translations: [Other pancytopenia] 09-16-2022 Chronic Deficiency and other anemia (20 sources) Anemia; Translations: [Anemia, unspecified] Onset: 10-20-2024 06-09-2022 Episodic Deficiency and other anemia (2 sources) Iron deficiency anemia secondary to inadequate dietary iron intake; Translations: [Other iron deficiency anemias] Episodic Deficiency and other anemia (4 sources) Iron deficiency anemia; Translations: [Iron deficiency anemia, unspecified] 04-27-2023 Episodic Diabetes mellitus with complications (20 sources) Type II diabetes mellitus uncontrolled; Translations: [Type 2 diabetes mellitus with hyperglycemia] Onset: 05-12-2025 Chronic Diabetes mellitus without complication (20 sources) Type 2 diabetes mellitus without complications; Translations: [Type 2 diabetes mellitus without complication] Onset: 12-30-2015 12-30-2015 Chronic Diseases of mouth; excluding dental (1 source) Painful mouth; Translations: [Other lesions of oral mucosa] 12-07-2023 Episodic Disorders of lipid metabolism (20 sources) Hyperlipidemia; Translations: [Hyperlipidemia, unspecified] Onset: 03-16-2020 03-16-2020 Chronic Disorders of teeth and jaw (20 sources) Toothache; Translations: [Other specified disorders of teeth and supporting structures] 11-27-2021 Episodic Disorders usually diagnosed in infancy, childhood, or adolescence (2 sources) Tic; Translations: [Tic disorder, unspecified] Onset: 10-17-2024 10-17-2024 Chronic Headache; including migraine (20 sources) Migraine without aura; Translations: [Migraine without aura, not intractable, without status migrainosus] Onset: 03-29-2006 03-29-2017 Chronic Immunizations and screening for infectious disease (1 source) Encounter for immunization; Translations: [Encounter for immunization] Onset: 05-12-2025 Episodic Influenza (20 sources) Influenza due to Influenza A virus; Translations: [Influenza due to other identified influenza virus with other respiratory manifestations] 12-15-2021 Episodic Mood disorders (20 sources) Moderate depressed bipolar I disorder; Translations: [Bipolar disorder, current episode depressed, moderate] Onset: 12-26-2011 10-25-2016 Chronic Mood disorders (2 sources) Major depressive disorder, single episode, unspecified; Translations: [Major depressive disorder, single episode, unspecified] Onset: 04-06-2017 Mycoses (20 sources) Mycosis; Translations: [Candidiasis, unspecified] 11-29-2020 Episodic Nonmalignant breast conditions (2 sources) Mastodynia; Translations: [Nipple discharge] Onset: 06-23-2025 Episodic Nonspecific chest pain (20 sources) Atypical chest pain; Translations: [Other chest pain] Onset: 02-28-2018 02-28-2018 Episodic Nutritional deficiencies (2 sources) Vitamin D deficiency; Translations: [Vitamin D deficiency, unspecified] Chronic Nutritional deficiencies (3 sources) Iron deficiency; Translations: [Iron deficiency] Episodic Open wounds of extremities (1 source) Injury of right leg; Translations: [Unspecified open wound, right lower leg, subsequent encounter] 12-07-2023 Episodic Other aftercare (13 sources) Patient encounter status; Translations: [Other [facility] (current) drug therapy] Episodic Other aftercare (1 source) Long-term current use of drug therapy; Translations: [Other [facility] (current) drug therapy] 04-08-2025 Episodic Other aftercare (1 source) Other [facility] (current) drug therapy; Translations: [Encounter for long-term current use of medication] Onset: 04-28-2025 Episodic Other circulatory disease (2 sources) Peripheral vascular disease; Translations: [Other specified peripheral vascular diseases] 06-24-2025 Chronic Other circulatory disease (2 sources) Other specified peripheral vascular diseases; Translations: [Other specified peripheral vascular diseases] Onset: 07-18-2025 Chronic Other connective tissue disease (5 sources) Trochanteric bursitis; Translations: [Trochanteric bursitis, right hip] Episodic Other connective tissue disease (2 sources) Pain in both feet; Translations: [Pain in right foot] Episodic Other connective tissue disease (1 source) Panniculitis; Translations: [Panniculitis, unspecified] Episodic Other diseases of veins and lymphatics (20 sources) Lymphedema; Translations: [Lymphedema, not elsewhere classified] 06-20-2023 Chronic Other diseases of veins and lymphatics (20 sources) Lymphedema, not elsewhere classified; Translations: [Other lymphedema] Onset: 07-18-2025 07-17-2023 Chronic Other hematologic conditions (2 sources) Microcytosis; Translations: [Other abnormality of red blood cells] Episodic Other hereditary and degenerative nervous system conditions (20 sources) Restless legs; Translations: [Restless legs syndrome] Onset: 03-16-2020 03-16-2020 Chronic Other infections; including parasitic (1 source) Cestode infection; Translations: [Cestode infection, unspecified] 04-25-2024 Episodic Other liver diseases (20 sources) Steatosis of liver; Translations: [Fatty (change of) liver, not elsewhere classified] Onset: 10-20-2024 10-20-2024 Chronic Other liver diseases (1 source) Fatty (change of) liver, not elsewhere classified; Translations: [Fatty liver] Onset: 10-20-2024 Chronic Other lower respiratory disease (20 sources) Dyspnea; Translations: [Dyspnea, unspecified] 12-15-2021 Episodic Other lower respiratory disease (1 source) Chronic cough; Translations: [Chronic cough] 07-31-2023 Episodic Other lower respiratory disease (14 sources) Rib pain; Translations: [Pleurodynia] 03-15-2024 Episodic Other lower respiratory disease (2 sources) Persistent cough; Translations: [Persistent cough for 3 weeks or longer] 05-13-2024 Episodic Other lower respiratory disease (1 source) Wheezing; Translations: [Wheezing] 05-13-2024 Episodic Other lower respiratory disease (1 source) Respiratory tract infection; Translations: [Other specified respiratory disorders] 06-02-2024 Episodic Other nervous system disorders (6 sources) Other chronic pain; Translations: [Other chronic pain] Onset: 07-17-2012 Chronic Other nervous system disorders (1 source) Nerve root disorder 01-20-2025 Chronic Other nervous system disorders (16 sources) Acute postoperative pain; Translations: [Other acute postprocedural pain] 09-28-2023 Episodic Other nervous system disorders (1 source) Paresthesia of hand ; Translations: [Anesthesia of skin] 10-20-2024 Episodic Other nervous system disorders (1 source) Abnormal gait; Translations: [Unsteadiness on feet] 01-20-2025 Episodic Other non-traumatic joint disorders (2 sources) Pain in right knee; Translations: [Pain in joint, lower leg] Episodic Other non-traumatic joint disorders (2 sources) Pain of right wrist; Translations: [Pain in right wrist] 07-23-2023 Episodic Other nutritional; endocrine; and metabolic disorders (20 sources) Morbid obesity; Translations: [Morbid (severe) obesity due to excess calories] Onset: 09-27-2016 09-27-2016 Chronic Other nutritional; endocrine; and metabolic disorders (20 sources) Severe obesity; Translations: [Morbid (severe) obesity due to excess calories] 06-01-2022 Chronic Other nutritional; endocrine; and metabolic disorders (20 sources) Obesity; Translations: [Obesity, unspecified] 06-03-2021 Chronic Other nutritional; endocrine; and metabolic disorders (19 sources) Calciphylaxis; Translations: [Other disorders of calcium metabolism] 07-04-2023 Chronic Other nutritional; endocrine; and metabolic disorders (10 sources) Other disorders of calcium metabolism; Translations: [Other disorders of calcium metabolism] 07-17-2023 Chronic Other nutritional; endocrine; and metabolic disorders (11 sources) Morbid (severe) obesity due to excess calories; Translations: [Morbid obesity] Onset: 09-18-2023 07-17-2023 Chronic Other nutritional; endocrine; and metabolic disorders (20 sources) Body mass index 40+ - severely obese; Translations: [Morbid (severe) obesity due to excess calories] Onset: 09-18-2023 09-18-2023 Chronic Other nutritional; endocrine; and metabolic disorders (11 sources) H/O: diabetes mellitus; Translations: [Personal history of other endocrine, nutritional and metabolic disease] 07-25-2024 Episodic Other screening for suspected conditions (not mental disorders or infectious disease) (20 sources) Other specified abnormal findings of blood chemistry; Translations: [Other abnormal blood chemistry] Onset: 05-12-2025 Episodic Other skin disorders (1 source) Eruption; Translations: [Rash and other nonspecific skin eruption] Episodic Other skin disorders (1 source) Skin problem; Translations: [Disorder of the skin and subcutaneous tissue, unspecified] 12-07-2023 Episodic Other upper respiratory disease (20 sources) Allergic rhinitis; Translations: [Allergic rhinitis, unspecified] 03-13-2017 Chronic Other upper respiratory disease (1 source) Other allergic rhinitis; Translations: [Non-seasonal allergic rhinitis, unspecified trigger] Onset: 03-13-2017 Chronic Other upper respiratory infections (11 sources) Acute upper respiratory infection; Translations: [Acute upper respiratory infection, unspecified] 03-17-2024 Episodic Residual codes; unclassified (6 sources) Obstructive sleep apnea syndrome; Translations: [Obstructive sleep apnea (adult) (pediatric)] Chronic Residual codes; unclassified (20 sources) Dependence on continuous positive airway pressure ventilation; Translations: [Dependence on other enabling machines and devices] 05-14-2024 Chronic Residual codes; unclassified (1 source) Obstructive sleep apnea (adult) (pediatric); Translations: [MARIA TERESA on CPAP] Onset: 10-20-2024 Chronic Residual codes; unclassified (15 sources) Bilateral lower limb edema; Translations: [Localized edema] Episodic Residual codes; unclassified (14 sources) Patient noncompliance - general; Translations: [General patient noncompliance] 04-16-2024 Episodic Residual codes; unclassified (1 source) Total body pain syndrome; Translations: [Pain, unspecified] 07-12-2025 Episodic Residual codes; unclassified (1 source) Edema; Translations: [Edema, unspecified] 07-12-2025 Episodic Residual codes; unclassified (1 source) Illness, unspecified; Translations: [Illness, unspecified] Onset: 07-19-2025 Episodic Screening and history of mental health and substance abuse codes (2 sources) Encounter for screening for depression; Translations: [Encounter for screening examination for other mental health and behavioral disorders] Onset: 05-12-2025 Episodic Skin and subcutaneous tissue infections (20 sources) Abscess of skin and/or subcutaneous tissue; Translations: [Cutaneous abscess, unspecified] 08-02-2022 Episodic Spondylosis; intervertebral disc disorders; other back problems (20 sources) Lumbar spondylosis; Translations: [Spondylosis without myelopathy or radiculopathy, lumbar region] Onset: 02-17-2013 02-17-2013 Chronic Sprains and strains (20 sources) Strain of muscle, fascia and tendon of lower back, initial encounter; Translations: [Sprain of hip] Onset: 04-06-2017 11-29-2020 Episodic Substance-related disorders (20 sources) Nicotine dependence, cigarettes, uncomplicated; Translations: [Smoker] Onset: 04-06-2017 02-03-2019 Chronic Superficial injury; contusion (20 sources) Contusion of knee; Translations: [Contusion of left knee, initial encounter] 07-15-2021 Episodic Unclassified (2 sources) residential (current) use of oral hypoglycemic drugs; Translations: [residential (current) use of oral hypoglycemic drugs] Onset: 04-06-2017 Unclassified (4 sources) M51.362 - Other intervertebral disc degeneration, lumbar region with discogenic back pain and lower extremity pain Unclassified (3 sources) Unclassified (1 source) Chronic midline low back pain, unspecified whether sciatica present; Translations: [Chronic midline low back pain, unspecified whether sciatica present] Onset: 02-24-2025 Unclassified (1 source) Obesity, Class III, BMI 40-49.9 (morbid obesity) ([facility]); Translations: [Obesity, Class III, BMI 40-49.9 (morbid obesity) ([facility])] Onset: 09-18-2023 Unclassified (1 source) Chronic left-sided low back pain, unspecified whether sciatica present; Translations: [Chronic left-sided low back pain, unspecified whether sciatica present] Onset: 02-24-2025 Unclassified (1 source) Low back pain, unspecified; Translations: [Low back pain, unspecified] Onset: 01-30-2025 Urinary tract infections (2 sources) Urinary tract infectious disease; Translations: [Urinary tract infection, site not specified] Episodic Viral infection (20 sources) Viral disease; Translations: [Viral infection, unspecified] 02-18-2024 Episodic Past or Other Problems Problem Classification Problem Date Documented Date Episodic/Chronic Calculus of urinary tract (2 sources) Personal history of urinary calculi; Translations: [Personal history of urinary calculi] Onset: 04-06-2017 Episodic Cancer of cervix (20 sources) Low grade squamous intraepithelial lesion on cervical Papanicolaou smear; Translations: [Low grade squamous intraepithelial lesion on cytologic smear of cervix (LGSIL)] Onset: 12-26-2011 12-26-2011 Episodic Deficiency and other anemia (1 source) Anemia, unspecified; Translations: [Anemia, unspecified type] Onset: 10-20-2024 Episodic Malaise and fatigue (13 sources) Asthenia; Translations: [Weakness] Onset: 01-20-2025 02-18-2024 Episodic Osteoarthritis (20 sources) Unspecified osteoarthritis, unspecified site; Translations: [Osteoarthritis of left knee joint] Onset: 12-11-2016 Resolved: 03-11-2018 03-11-2018 Chronic Other complications of (20 sources) Supervision of other high risk pregnancies, unspecified trimester; Translations: [Supervision of other high-risk ] Onset: 09-26-2006 Resolved: 12-12-2011 12-12-2011 Episodic Other connective tissue disease (20 sources) Tendinitis of hip; Translations: [Other specified enthesopathies of unspecified lower limb, excluding foot] Onset: 12-15-2013 Resolved: 03-11-2018 03-11-2018 Episodic Other female genital disorders (20 sources) History of premature labor; Translations: [Personal history of pre-term labor] Onset: 11-07-2006 Resolved: 03-11-2018 03-11-2018 Episodic Other female genital disorders (20 sources) Cervical intraepithelial neoplasia grade 1; Translations: [Mild cervical dysplasia] Onset: 12-26-2011 Resolved: 03-11-2018 03-11-2018 Episodic Other hematologic conditions (1 source) Other abnormality of red blood cells; Translations: [Microcytosis] Onset: 01-20-2025 Episodic Other lower respiratory disease (1 source) Pleurodynia; Translations: [Rib pain] Onset: 01-20-2025 Episodic Other nervous system disorders (1 source) Unsteadiness on feet; Translations: [Gait instability] Onset: 01-20-2025 Episodic Other nervous system disorders (1 source) Anesthesia of skin; Translations: [Numbness and tingling in both hands] Onset: 10-20-2024 Episodic Other nervous system disorders (1 source) Paresthesia of skin; Translations: [Numbness and tingling in both hands] Onset: 10-20-2024 Episodic Other non-traumatic joint disorders (20 sources) Hip pain; Translations: [Pain in left hip] Onset: 12-15-2013 Resolved: 03-11-2018 Episodic Other non-traumatic joint disorders (20 sources) Pain in right hip joint; Translations: [Pain in right hip] Onset: 12-15-2013 Resolved: 03-11-2018 03-11-2018 Episodic Other non-traumatic joint disorders (20 sources) Pain in left knee; Translations: [Pain in joint, lower leg] Onset: 12-11-2016 Resolved: 03-11-2018 03-11-2018 Episodic Other and delivery including normal (20 sources) Normal ; Translations: [Encounter for supervision of other normal , unspecified trimester] Onset: 2006 Resolved: 12-12-2011 12-12-2011 Episodic Residual codes; unclassified (1 source) Localized edema; Translations: [Bilateral leg edema] Onset: 10-20-2024 Episodic Spondylosis; intervertebral disc disorders; other back problems (20 sources) Dorsalgia, unspecified; Translations: [Low back pain] Onset: 07-17-2012 07-17-2012 Episodic Results Test Name Value Interpretation Reference Range Facility Culture, Anaerobic Any Sourc hank 07-25-2025 CUAN R LEG ULCER No anaerobic bacteria isolated. Normal [facility] Comment on above: Performed By: #### M 100.3000, M100.2000, M100.4001 #### [facility] [address] [place], [address] Wound Cultureon 07-25-2025 WC R LEG ULCER Pseudomonas aeruginosa Amount Growth 3+ Raoultella planticola Raoultella planticola STAGA Amount Growth 2+ Streptococcus agalactiae (B) Cefepime Islt ANEUDY 2 Ciprofloxacin Islt ANEUDY 0.12 S levoFLOXacin Islt ANEUDY 0.25 Meropenem Islt ANEUDY <=0.25 S Pip+Tazo Islt ANEUDY <=4 S Raoultella planticola: REACTION Ampicillin Islt ANEUDY R Ampicillin+Sulbac Islt ANEUDY <=2 S Cefepime Islt ANEUDY <=0.12 cefTRIAXone Islt ANEUDY <=0.25 S Ciprofloxacin Islt ANEUDY <=0.06 S Gentamicin Islt ANEUDY <=1 S levoFLOXacin Islt ANEUDY <=0.12 S Meropenem Islt ANEUDY <=0.25 S Pip+Tazo Islt ANEUDY <=4 S TMP SMX Islt ANEUDY <=20 S Streptococcus agalactiae (B): REACTION Ampicillin Islt ANEUDY <=0.25 S cefTRIAXone Islt ANEUDY <=0.12 S Clindamycin Islt ANEUDY <=0.25 Clindamycin.induced Susc Islt NEG Linezolid Islt NAEUDY <=2 S Vancomycin Islt ANEUDY 0.5 S Normal [facility] Comment on above: Performed By: #### M 100.3000, M100.1999, M100.4001 #### [facility] [address] [place], [address] Gram Stainon 07-23-2025 GS R LEG ULCER Gram Stain 1+ Gram negative rods 1+ Gram positive cocci No White Blood Cells No Epithelial cells Normal [facility] Comment on above: Performed By: #### M 100.3000, M100.1999, M100.4001 #### [facility] [address] [place], [address] Gram stainOrdered By: Krista Lord on 07-22-2025 Microscopic observation Gram stain Nom (Unsp spec) [facility] CNTHERAPYon 07-10-2025 CNTHERAPY OT/PT/Speech Visit (PTWS) NANCI RODRIGUEZ ([id number]) 1980 F Date Time Provider Department 07/10/25 10:00 AM NANCI COOK PTWS Date Time Provider Department Center 07/10/2025 10:00 AM [id number]-LNANCI COOK [facility] Reason for Visit: PT Discharge [752] Primary Visit Diagnosis:Chronic left-sided low back pain, unspecified whether sciatica present [M54.50, G89.29] Allergies As of Date: 07/10/2025 Noted Allergy Reaction PENICILLINS 08/24/2011 9 - Itching 4 - Hives MELATONIN 11/08/2016 2 - Rash 4 - Hives TRAMADOL 07/10/2013 14 - Other: See Comments Comments: tic like movements WELLBUTRIN (BUPROPION) 03/12/2019 5 - Intolerance Comments: Dry mouth--severe, intolerable Date Reviewed: 06/23/2025 Reviewed by: Roberto Mckinney LPN - Fully Assessed Prescriptions as of 07/10/2025 - HYDROcodone-acetamino phen (NORCO) 5-325 mg per tablet Take 1-2 tablets by mouth every 6 hours as needed for pain for up to 7 days. Patient should start on July 09, 2025. - cyclobenzaprine (FLEXERIL) 10 mg tablet Take 1 tablet by mouth three times a day as needed for muscle spasm. May make drowsy - traZODone (DESYREL) 100 mg tablet Take 100 mg by mouth at bedtime as needed. - benzonatate (TESSALON PERLE) 100 mg capsule Take 1-2 capsules by mouth three times a day as needed. - promethazine (PHENERGAN) 12.5 mg tablet Take 1 tablet by mouth four times a day as needed for nausea/vomiting. - albuterol HFA (VENTOLIN HFA) 90 mcg/actuation inhaler Inhale 2 puffs as instructed every 4 hours as needed. - topiramate (TOPAMAX) 100 mg tablet Take 1 tablet by mouth two times a day. - lansoprazole (PREVACID) 30 mg capsule Take 1 capsule by mouth daily before breakfast. - pramipexole (MIRAPEX) 1.5 mg tablet Take 1 tablet by mouth daily at bedtime. - celecoxib (CELEBREX) 400 mg capsule Take 1 capsule by mouth once daily. Take with food - SUMAtriptan (IMITREX) 25 mg tablet Take 1 tablet by mouth at onset of headache and may repeat in 2 hrs if needed. - dulaglutide (TRULICITY) 3 mg/0.5 mL pen injector Inject 3 mg subcutaneously one time a week. Inject dose once per week. Discard Pen After - furosemide (LASIX) 40 mg tablet Take 1 tablet by mouth once daily. - ferrous sulfate 325 mg (65 mg iron) tablet Take 1 tablet by mouth every Sunday, Sunday, and Sunday. - lidocaine (LIDODERM) 5 % Apply 1 patch as directed every 24 hours. Remove after 12 hours. - mometasone-formoterol (DULERA) 50-5 mcg/actuation HFA aerosol inhaler Inhale 1 puff as instructed two times a day. Rinse mouth out after use. - Lancets Test blood sugar(s) once times daily. Dx: Type 2 DM - Controlled E11.9 Insulin: No - blood sugar diagnostic (BLOOD GLUCOSE TEST) test strip Test blood sugar(s) one time daily. Dx: Type 2 DM - Controlled E11.9 Insulin: No. Uses True Metrix test strips. - metFORMIN (GLUCOPHAGE) 500 mg tablet Take 2 tablets by mouth two times a day with meals. Take one additional 500 mg tab with breakfast or lunch until BS less than 250 - loratadine (CLARITIN) 10 mg tablet Take 1 tablet by mouth once daily. - glimepiride (AMARYL) 4 mg tablet Take 1 tablet by mouth daily with breakfast. Dose change, take one daily - montelukast (SINGULAIR) 10 mg tablet Take 1 tablet by mouth daily at bedtime. - QUEtiapine (SEROQUEL) 25 mg tablet Take 75 mg by mouth daily at bedtime. - lamoTRIgine (LAMICTAL) 200 mg tablet Take 1 tablet by mouth two times a day. - diphenhydrAMINE (BENADRYL) 25 mg capsule Take 1 capsule by mouth every 6 hours as needed for itching/rash. - glucose 4 gram chewable tablet Take 4 tablets by mouth as needed for low blood sugar. - Albuterol Sulfate 1.25 mg/3 mL nebulizer solution Use 1 Ampule via nebulizer every 4 hours as needed for wheezing/shortness of breath. - ARIPiprazole (ABILIFY) 5 mg tablet Take 1 tablet by mouth once daily. - LORazepam (ATIVAN) 1 mg tablet Take 1 tablet by mouth twice daily. As needed. - Nebulizer NEBULIZER and Supplies FOR HOME USE. DX: J45.40 - citalopram (CELEXA) 40 mg tablet Take 40 mg by mouth once daily. [facility] Normal [facility] ALBUMIN/CREATININE RATIO, UR INEon 07-09-2025 Albumin DL <= 20 mg/L (U) [Mass/Vol] mg/dL Normal [facility] Comment on above: Order Comment: Speci men Type: URINE SPECIMENOrdering Facility: [facility] Address: [address] [place] [address] Performed By: #### U ACR ####[facility] LABCLIA [id number] [place] [address] [place] Albumin/Creatinine (U) [Mass ratio] <14 Normal <30 [facility] Comment on above: Order Comment: Speci men Type: URINE SPECIMENOrdering Facility: [facility] Address: [address] [place] [address] Result Comment: Adul t Male and Female Nephrotic Criteria: <30 mg/g is considered normal to mildly increased 30-300 mg/g is considered moderately increased >300 mg/g is considered severely increased KDIGO. (2013). KDIGO 2012 Clinical Practice Guideline for the Evaluation and Management of Chronic Kidney Disease. Official Journal of the International Society of Nephrology, 3(1), 1-150. Performed By: #### U ACR ####[facility] LABCLIA [id number] [place] [address] [place] Creatinine (U) [Mass/Vol] 85.2 mg/dL Normal 20.0-300.0 [facility] Comment on above: Order Comment: Speci men Type: URINE SPECIMENOrdering Facility: [facility] Address: [address] [place] [address] Performed By: #### U ACR ####[facility] LABCLIA [id number] [place] [address] [place] CBC panel Auto (Bld)on 07-09 Erythrocyte distribution width (RBC) [Ratio] 15.1 % High 11.5-15.0 [facility] Comment on above: Order Comment: Speci men Type: BLOOD SPECIMENOrdering Facility: [facility] Address: [address] [place] [address] Performed By: #### 5 8410-2 ####[facility] LABCLIA [id number] [address] [place] Hematocrit (Bld) [Volume fraction] 42.7 % Normal 36.0-46.0 [facility] Comment on above: Order Comment: Speci men Type: BLOOD SPECIMENOrdering Facility: [facility] Address: [address] [place] [address] Performed By: #### 5 8410-2 ####[facility] LABCLIA [id number] [place] [address] [place] Hemoglobin (Bld) [Mass/Vol] 13.5 g/dL Normal 11.5-15.5 [facility] Comment on above: Order Comment: Speci men Type: BLOOD SPECIMENOrdering Facility: [facility] Address: [address] [place] [address] Performed By: #### 5 8410-2 ####[facility] LABCLIA [id number] [place] [address] [place] MCH (RBC) [Entitic mass] 28.6 pg Normal 26.0-34.0 [facility] Comment on above: Order Comment: Speci men Type: BLOOD SPECIMENOrdering Facility: [facility] Address: [address] [place] [address] Performed By: #### 5 8410-2 ####[facility] LABCLIA [id number] [place] [address] [place] MCHC (RBC) [Mass/Vol] 31.6 g/dL Normal 30.5-36.0 [facility] Comment on above: Order Comment: Speci men Type: BLOOD SPECIMENOrdering Facility: [facility] Address: [address] [place] [address] Performed By: #### 5 8410-2 ####[facility] LABCLIA [id number] [place] [address] [place] MCV (RBC) [Entitic vol] 90.5 fL Normal 80.0-100.0 C [facility] Comment on above: Order Comment: Speci men Type: BLOOD SPECIMENOrdering Facility: [facility] Address: [address] [place] [address] Performed By: #### 5 8410-2 ####[facility] LABCLIA [id number] [place] [address] [place] Nucleated RBC (Bld) [#/Vol] 10*3/uL Normal <0.01 [facility] Comment on above: Order Comment: Speci men Type: BLOOD SPECIMENOrdering Facility: [facility] Address: [address] [place] [address] Performed By: #### 5 8410-2 ####[facility] LABCLIA [id number] [place] [address] [place] Platelet mean volume (Bld) [Entitic vol] 10.5 fL Normal 9.0-12.7 [facility] Comment on above: Order Comment: Speci men Type: BLOOD SPECIMENOrdering Facility: [facility] Address: [address] [place] [address] Performed By: #### 5 8410-2 ####[facility] LABCLIA [id number] [place] [address] [place] Platelets (Bld) [#/Vol] 97 10*3/uL Low 150-400 C [facility] Comment on above: Order Comment: Speci men Type: BLOOD SPECIMENOrdering Facility: [facility] Address: [address] [place] [address] Result Comment: No c lot detected. Performed By: #### 5 8410-2 ####[facility] LABCLIA [id number] [place] [address] [place] RBC (Bld) [#/Vol] 4.72 10*6/uL Normal 3.90-5.20 [facility] Comment on above: Order Comment: Speci men Type: BLOOD SPECIMENOrdering Facility: [facility] Address: [address] [place] [address] Performed By: #### 5 8410-2 ####[facility] LABCLIA [id number] [place] [address] [place] WBC (Bld) [#/Vol] 3.78 10*3/uL Normal 3.70-11.00 [facility] Comment on above: Order Comment: Speci men Type: BLOOD SPECIMENOrdering Facility: [facility] Address: [address] [place] [address] Performed By: #### 5 8410-2 ####[facility] LABCLIA [id number] [place] [address] [place] [facility] Comprehensive metabolic 2000 panelon 07-09-2025 Albumin [Mass/Vol] 3.8 g/dL Low 3.9-4.9 [facility] Comment on above: Order Comment: Speci men Type: BLOOD SPECIMENOrdering Facility: [facility] Address: [address] [place] [address] Performed By: #### 2 4323-8 ####[facility] LABCLIA [id number] [place] [address] [place] ALP [Catalytic activity/Vol] 126 U/L High 34-123 [facility] Comment on above: Order Comment: Speci men Type: BLOOD SPECIMENOrdering Facility: [facility] Address: [address] [place] [address] Performed By: #### 2 4323-8 ####[facility] LABCLIA [id number] [place] [address] [place] ALT [Catalytic activity/Vol] 27 U/L Normal 7-38 [facility] Comment on above: Order Comment: Speci men Type: BLOOD SPECIMENOrdering Facility: [facility] Address: [address] [place] [address] Performed By: #### 2 4323-8 ####[facility] LABCLIA [id number] [place] [address] [place] Anion gap [Moles/Vol] 10 mmol/L Normal 8-15 [facility] Comment on above: Order Comment: Speci men Type: BLOOD SPECIMENOrdering Facility: [facility] Address: [address] [place] [address] Performed By: #### 2 4323-8 ####[facility] LABCLIA [id number] [place] [address] [place] AST [Catalytic activity/Vol] 30 U/L Normal 13-35 [facility] Comment on above: Order Comment: Speci men Type: BLOOD SPECIMENOrdering Facility: [facility] Address: [address] [place] [address] Performed By: #### 2 4323-8 ####[facility] LABCLIA [id number] [place] [address] [place] Bilirubin [Mass/Vol] 0.5 mg/dL Normal 0.2-1.3 [facility] Comment on above: Order Comment: Speci men Type: BLOOD SPECIMENOrdering Facility: [facility] Address: [address] [place] [address] Performed By: #### 2 4323-8 ####[facility] LABCLIA [id number] [place] [address] [place] Calcium [Mass/Vol] 8.7 mg/dL Normal 8.5-10.2 [facility] Comment on above: Order Comment: Speci men Type: BLOOD SPECIMENOrdering Facility: [facility] Address: [address] [place] [address] Performed By: #### 2 4323-8 ####[facility] LABCLIA [id number] [place] [address] [place] Chloride [Moles/Vol] 106 mmol/L Normal 98-107 [facility] Comment on above: Order Comment: Speci men Type: BLOOD SPECIMENOrdering Facility: [facility] Address: [address] [place] [address] Performed By: #### 2 4323-8 ####[facility] LABCLIA [id number] [place] [address] [place] CO2 [Moles/Vol] 24 mmol/L Normal 22-30 [facility] Comment on above: Order Comment: Speci men Type: BLOOD SPECIMENOrdering Facility: [facility] Address: [address] [place] [address] Performed By: #### 2 4323-8 ####[facility] LABCLIA [id number] [place] [address] [place] Creatinine [Mass/Vol] 0.60 mg/dL Normal 0.58-0.96 [facility] Comment on above: Order Comment: Mitzi banda Type: BLOOD SPECIMENOrdering Facility: [facility] Address: [address] [place] [address] Performed By: #### 2 4323-8 ####[facility] LABCLIA [id number] [place] [address] [place] eGFRcr SerPlBld CKD-EPI 2020 114 mL/min/1.73m??? Normal >=60 [facility] Comment on above: Order Comment: Mitzi banda Type: BLOOD SPECIMENOrdering Facility: [facility] Address: [address] [place] [address] Result Comment: Angela mated Glomerular Filtration Rate (eGFR) is calculated using the 2020 CKD-EPI creatinine equation. This equation utilizes serum creatinine, sex, and age as parameters. The creatinine assay has traceable calibration to isotope dilution-mass spectrometry. Refer to KDIGO guidelines for clinical interpretation. In patients with unstable renal function, e.g. those with acute kidney injury, the eGFR may not accurately reflect actual GFR. Performed By: #### 2 4323-8 ####[facility] LABCLIA [id number] [place] [address] [place] Glucose [Mass/Vol] 197 mg/dL High 74-99 [facility] Comment on above: Order Comment: Mitzi banda Type: BLOOD SPECIMENOrdering Facility: [facility] Address: [address] [place] [address] Result Comment: The [place] Diabetes Association (ADA) provides guidance for cutoff values for fasting glucose and random glucose. The ADA defines fasting as no caloric intake for at least 8 hours. Fasting plasma glucose results between 100 to 125 mg/dL indicate increased risk for diabetes (prediabetes). Fasting plasma glucose results greater than or equal to 126 mg/dL meet the criteria for diagnosis of diabetes. In the absence of unequivocal hyperglycemia, results should be confirmed by repeat testing. In a patient with classic symptoms of hyperglycemia or hyperglycemic crisis, random plasma glucose results greater than or equal to 200 mg/dL meet the criteria for diagnosis of diabetes. Reference: Standards of Medical Care in Diabetes 2016, [place] [employer] Association. Diabetes Care. 2016.39(Suppl 1). Performed By: #### 2 4323-8 ####[facility] LABCLIA [id number] [place] [address] [place] Potassium [Moles/Vol] 3.9 mmol/L Normal 3.7-5.1 [facility] Comment on above: Order Comment: Speci men Type: BLOOD SPECIMENOrdering Facility: [facility] Address: [address] [place] [address] Performed By: #### 2 4323-8 ####[facility] LABCLIA [id number] [place] [address] [place] Protein [Mass/Vol] 7.2 g/dL Normal 6.3-8.0 [facility] Comment on above: Order Comment: Speci men Type: BLOOD SPECIMENOrdering Facility: [facility] Address: [address] [place] [address] Performed By: #### 2 432-8 ####[facility] LABCLIA [id number] [address] [place] Sodium [Moles/Vol] 140 mmol/L Normal 136-144 [facility] Comment on above: Order Comment: Speci men Type: BLOOD SPECIMENOrdering Facility: [facility] Address: [address] [place] [address] Performed By: #### 2 4323-8 ####[facility] LABCLIA [id number] [place] [id number] [place] Urea nitrogen [Mass/Vol] 14 mg/dL Normal 7-21 [facility] Comment on above: Order Comment: Speci men Type: BLOOD SPECIMENOrdering Facility: [facility] Address: [address] [place] [address] Performed By: #### 2 4323-8 ####[facility] LABCLIA [id number] [place] [id number] [place] HbA1c (Bld)on 07-09-2025 Average glucose Estimated from glycated hemoglobin (Bld) [Mass/Vol] 134 mg/dL Normal [facility] Comment on above: Order Comment: Speci men Type: BLOOD SPECIMENOrdering Facility: [facility] Address: [address] [place] [address] Result Comment: eAG: (Estimated average glucose) is a calculated value from HgbA1c and is community representative of the average blood glucose level in the last 2-3 month period. Performed By: #### 5 5454-3 ####[facility] LABCLIA [id number] [address] [place] HbA1c (Bld) [Mass fraction] 6.3 % High 4.3-5.6 [facility] Comment on above: Order Comment: Speci men Type: BLOOD SPECIMENOrdering Facility: [facility] Address: [address] [place] [address] Result Comment: [place] Diabetes Association guidelines indicate that patients with HgbA1c in the range 5.7-6.4% are at increased risk for development of diabetes, and intervention by lifestyle modification may be beneficial. HgbA1c greater or equal to 6.5% is considered diagnostic of diabetes. Performed By: #### 5 5454-3 ####[facility] LABCLIA [id number] [place] [id number] [place] Urine Cultureon 07-06-2025 [facility] Mixed Gram Positive Organisms Aurora Count 50,000-80,000 MIXC Mixed contaminants. Submit a new specimen if indicated. Normal [facility] Comment on above: Performed By: #### M 100.3000, M100.2000, M100.4001 #### [facility] [address] [place], [address] 12 Lead EKGon 07-04-2025 12 Lead EKG [facility] [address] [place] [address] 12 Lead EKG 07/04/251954 MR#: [id number] Acct: [id number] Name: RODRIGUEZDAVENANCI L Rep #: [id number] : 1980 44 From: Darrick Guzman MD Attending Dr: Status: DEP ER Ordering Dr: Carri Sweeney DO Date: 07/04/25 Location: ED Sex: F C Admitted: Test Reason : DYSRHYTHMIA Blood Pressure : */* mmHG Vent. Rate : 105 BPM Atrial Rate : 105 BPM P-R Int : 162 ms QRS Dur : 70 ms QT Int : 338 ms P-R-T Axes : 63 13 62 degrees QTcB Int : 446 ms Sinus tachycardia Low voltage QRS Borderline ECG Confirmed by DARRICK GUZMAN MD ([id number]), supervising film or videotape editor NAHED SIMMS ([id number]) on 07/06/2025 6:42:11 AM Referred By: Confirmed By: DARRICK GUZMAN MD 07/06/25 0642 Date Darrick Guzman MD CC: Dr. Carri Sweeney DO; Dr. Rodri Chauhan MD Signed Normal [facility] Absolute lymphocyte countOrd ered By: Carri Sweeney on 07-04-2025 Lymphocytes Auto (Unsp spec) [#/Vol] 1.12 10*3/uL 0.83-4.51 [facility] Absolute neutrophil countOrd ered By: Carri Sweeney on 07-04-2025 Neutrophils (Bld) [#/Vol] 2.9 10*3/uL 2.0-7.7 [facility] Amorphous sediment detection in urine sediment by light microscopyOrdered By: Carri Sweeney on 07-04-2025 Amorphous sediment LM Ql (Urine sed) 2+ [facility] Anion gap in Serum or Plasma Ordered By: Carri Sweeney on 07-04-2025 Anion gap [Moles/Vol] 11 mmol/L 5-15 [facility] Automated lymphocyte count a s percentage of total leukocytesOrdered By: Carri Sweeney on 07-04-2025 Lymphocytes/100 WBC Auto (Unsp spec) 25.9 % 19-41 [facility] BUN/creatinine ratioOrdered By: Carri Sweneey on 07-04-2025 Urea nitrogen/Creatinine [Mass ratio] 22.7 mg/mg High 10-20 [facility] Basophil percentageOrdered B y: Carri Sweeney on 07-04-2025 Basophils/100 WBC (Bld) 0.5 % 0-1 [facility] Bilirubin Test strip Ql (U)O rdered By: Carri Sweeney on 07-04-2025 Bilirubin Ql (U) Negative Negative [facility] Bilirubin, totalOrdered By: Carri Sweeney on 07-04-2025 Bilirubin [Mass/Vol] 0.46 mg/dL 0.00-1.30 [facility] CBC W/Diff, Automatedon 06-17 Absolute Lymph 1.12 X10 3/uL Normal 0.83-4.51 [facility] Comment on above: Performed By: #### M 100.3000, , M100.4001 #### [facility] [address] [place], [address] Absolute Neut 2.9 X10 3/uL Normal 2.0-7.7 [facility] Comment on above: Performed By: #### M 100.3000, , M100.4001 #### [facility] [address] [place], [address] Basophils/100 WBC (Bld) 0.5 % Normal 0-1 [facility] Comment on above: Performed By: #### M 100.3000, , M100.4001 #### [facility] [address] [place], [address] Eosinophils/100 WBC (Bld) 1.6 % Normal 0-5 [facility] Comment on above: Performed By: #### M 100.3000, , M100.4001 #### [facility] [address] [place], [address] Erythrocyte distribution width (RBC) [Ratio] 15.4 % High 11.6-14.6 [facility] Comment on above: Performed By: #### M 100.3000, , #### [facility] [address] [place], [address] Hematocrit (Bld) [Volume fraction] 40.5 % Normal 37-47 [facility] Comment on above: Performed By: #### M 100.3000, , #### [facility] [address] [place], [address] Hemoglobin (Bld) [Mass/Vol] 13.1 g/dL Normal 12.0-15.0 [facility] Comment on above: Performed By: #### M 100.2999, , #### [facility] [address] [place], [address] IG% 0.500 Normal 0.0-0.9 [facility] Comment on above: Result Comment: IG% - Immature Granulocytes (promyelocytes, myelocytes and metamyelocytes) > 1% indicates that a LEFT SHIFT is Present. Performed By: #### M 100.3000, , 400 #### [facility] [address] [place], [address] Lymphocytes/100 WBC (Bld) 25.9 % Normal 19-41 [facility] Comment on above: Performed By: #### M 100.3000, , #### [facility] [address] [place], [address] MCH (RBC) [Entitic mass] 28.9 pg Normal 27.0-32.0 [facility] Comment on above: Performed By: #### M 100.3000, , 4001 #### [facility] [address] [place], [address] MCHC (RBC) [Mass/Vol] 32.3 g/dL Normal 32-36 [facility] Comment on above: Performed By: #### M 100.3000, .1999, M1.4001 #### [facility] [address] [place], [address] MCV (RBC) [Entitic vol] 89.4 fL Normal 81-99 [facility] Comment on above: Performed By: #### M 100.3000, , .4001 #### [facility] [address] [place], [address] Monocytes/100 WBC (Bld) 5.3 % Normal 0-10 [facility] Comment on above: Performed By: #### M 100.3000, , .4001 #### [facility] [address] [place],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 caps 0 09/28/23 Unknown Rx (Colace) acetaminophen 500 mg tablet 1,000 mg (2 x 500 mg) PO Q6H PRN 0 03/09/24 Unknown Rx (Tylenol Extra Strength) pain 7 days #56 tabs benztropine 1 mg tablet 1 mg PO BID PRN PRN legs 03/09/24 Unknown History quetiapine 25 mg tablet (Seroquel) 25 mg PO DAILY 04/09/24 04/09/24 History sulfamethoxazole 800 1 tab PO BID 2 weeks #28 tabs 06/10 Unknown Rx mg-trimethoprim 160 mg tablet (Bactrim DS) amoxicillin 875 mg-potassium 1 tab PO BID 2 weeks #28 tabs 06/17 03/10 Unknown Rx clavulanate 125 mg tablet gentamicin 0.1 % topical ointment 1 applic topical TID #30 grams Unknown Rx cephalexin 500 mg capsule 500 mg PO Q6 #20 CAPSULES 07/17/24 Unknown Rx hydrocodone-acetamino phen 5-325mg 1 tab PO Q6H PRN PRN Pain 3 days 12/15/24 Unknown Rx 5mg-325mg #10 TABLETS levofloxacin 500 mg tablet 500 mg PO DAILY 2 weeks #14 tabs 0 02/26/25 Unknown Rx (more content not included)... [facility] MANOHARchauncey 06-23-2025 CNOV Office Visit (INTMWS ) NANCI RODRIGUEZ ([id number]) 1980 F Date Time Provider Department 06/23/25 2:40 PM JOHNSON RM During your visit today, we recorded the following information about you: Pulse Respiration Blood pressure Weight 104/minute 16/minute 132/88 164 kg Johnson Rm APRN.SENIOR SHAREPOINT ARCHITECT 06/23/2025 4:25 PM Signed Subjective Patient ID: Nanci is a 44 year old female who presents for Acute Visit (Nipple discharge, blisters on bilateral breasts; chronic; last mammogram 2020). HPI The patient is a 44-year-old female with asthma and COPD, presenting for evaluation of bilateral nipple discharge and periareolar skin lesions. Nanci is a 44-year-old female with a history of asthma and COPD, presenting for evaluation of a cough and bilateral breast issues. Cough: - Productive cough with nasty mucus x1 week. - Associated with headaches and dyspnea. - Denies sore throat or otalgia. - Son had a brief illness recently. - Using inhaler and nebulizer TID with some relief. - Wakes up at night due to coughing. Breast Issues: - Bilateral nipple discharge and sores since 2020. - More discharge from the right breast than the left. - Occasional blood in discharge when squeezing the nipple area. - Describes sores as puffed up with white discharge when squeezed. - Occasional breast pain. - Last mammogram revealed cysts. - Denies feeling any deep lumps or bumps. Patient's last HgA1C was Hemoglobin A1C (%) Date Value 04/28/2025 6.6 01/20/2025 8.8 02/02/2021 11.2 01/03/2021 12.6 ) ROS Constitutional: (+) sleep disturbance Head: (+) headache Ears/Nose/Mouth/Throa t: (-) sore throat, (-) ear pain Respiratory: (+) cough with sputum, (+) dyspnea, (+) wheezing Breast: (+) bilateral nipple discharge, (+) breast skin sores, (+) intermittent breast pain, (-) palpable breast lumps Objective BP 132/88 Pulse 104 Resp 16 Wt (!) 164 kg (361 lb 8.9 oz) LMP 10/13/2024 (Exact Date) SpO2 97% BMI 65.12 kg/m? Physical Exam Vitals and nursing note reviewed. Constitutional: Appearance: Normal appearance. HENT: Head: Normocephalic and atraumatic. Right Ear: Tympanic membrane and ear canal normal. Left Ear: Tympanic membrane and ear canal normal. Nose: Mucosal edema and rhinorrhea present. Mouth/Throat: Lips: [place]. Mouth: Mucous membranes are moist. Pharynx: Oropharynx is clear. Tonsils: No tonsillar exudate. Eyes: Conjunctiva/sclera: Conjunctivae normal. Cardiovascular: Rate and Rhythm: Normal rate. Pulmonary: Effort: Pulmonary effort is normal. Breath sounds: Wheezing present. Comments: few expiratory wheezes Skin: Comments: Pustule lesions across both breasts consistent with folliculitis, no palpable mass Neurological: General: No focal deficit present. Mental Status: She is alert and oriented to person, place, and time. 1. Breast pain (N64.4) 2. Nipple discharge (N64.52) 3. Skin lesions (L98.9) - Chronic bilateral breast pain, nipple discharge (occasionally bloody), and skin lesions with purulent drainage; previously noted cysts on mammogram in 2020. - Order bilateral breast ultrasound and diagnostic mammogram. - Start antibiotic to address skin lesions. 4. Bronchitis (J40) - Acute productive cough with purulent sputum, wheezing, and dyspnea for one week; history of asthma and COPD. Increase albuterol use - Start antibiotic to address bronchitis. - Advised use of inhaler or nebulizer every 4 hours as needed to improve respiratory symptoms. Johnson Rm, MARIJA.SENIOR SHAREPOINT ARCHITECT Medical Decision Making: Problems: Low: Acute, uncomplicated illness or injury and Stable chronic illness Data: Unique test result(s) reviewed: 2 Unique test(s) ordered: 2 Risk: Moderate: Drug management Medical Decision Making Level: 4 - Moderate Referring Provider: SELF [200] Allergies As of Date: 06/23/2025 Noted Allergy Reaction PENICILLINS 08/24/2011 9 - Itching 4 - Hives MELATONIN 11/08/2016 2 - Rash 4 - Hives TRAMADOL 07/10/2013 14 - Other: See Comments Comments: tic like movements WELLBUTRIN (BUPROPION) 03/12/2019 5 - Intolerance Comments: Dry mouth--severe, intolerable Date Reviewed: 06/23/2025 Reviewed by: Roberto Mckinney LPN - Fully Assessed Reason for Visit: Acute Visit [896] Cmt: Nipple discharge, blisters on bilateral breasts; chronic; last mammogram 2020 Primary Visit Diagnosis:Breast pain [N64.4] Comment:bilateral Other Visit Diagnoses:Nipple discharge [N64.52] Comment:bilateral Bronchitis [J40] Skin lesions [L98.9] Order(s):NEREIDA Alexander JOSEMANUEL BILATERAL [[id number]] Order #: [id number] FUTURE [facility] LEFT [[id number]] Order #: [id number] [place] [employer] RIGHT [[id number]] Order #: [id number] FUTURE doxycycline monohydrate (MONODOX) 100 mg capsuleTake 1 capsule by mouth two times a day for 7 days.Disp: 14 capsuleRfl: 0 (more content not included)... [facility] 06-16-2025 CNPN Telephone (INTMWS) NANCI RODRIGUEZ ([id number]) 1980 F Date Time Provider Department 06/16/25 RODRI CHAUHAN INTMWS During your visit today, we recorded the following information about you: Hannah Prasad 06/16/2025 11:47 AM Signed Patient called to schedule screening mammogram. Patient answered yes to decision tree question regarding currently experiencing nipple discharge. Patient states she has experienced this symptoms before due to internal cysts in her breasts. Decision tree denial instructions advise for PSS to notify order provider that a diagnostic mammogram order is required. Please notify patient when order is available for scheduling. Suze Miller LPN 06/16/2025 12:06 PM Signed Appt scheduled with YOAV Cho 06/19/25. Suze Miller LPN Allergies As of Date: 06/16/2025 Noted Allergy Reaction PENICILLINS 08/24/2011 9 - Itching 4 - Hives MELATONIN 11/08/2016 2 - Rash 4 - Hives TRAMADOL 07/10/2013 14 - Other: See Comments Comments: tic like movements WELLBUTRIN (BUPROPION) 03/12/2019 5 - Intolerance Comments: Dry mouth--severe, intolerable Date Reviewed: 05/12/2025 Reviewed by: Lizabeth Hurtado LPN - Fully Assessed Reason for Visit: Orders [681] Cmt: Diagnostic Mammogram Prescriptions as of 06/19/2025 - HYDROcodone-acetamino phen (NORCO) 5-325 mg per tablet Take 1-2 tablets by mouth every 6 hours as needed for pain for up to 7 days. - benzonatate (TESSALON PERLE) 100 mg capsule Take 1-2 capsules by mouth three times a day as needed. - promethazine (PHENERGAN) 12.5 mg tablet Take 1 tablet by mouth four times a day as needed for nausea/vomiting. - albuterol HFA (VENTOLIN HFA) 90 mcg/actuation inhaler Inhale 2 puffs as instructed every 4 hours as needed. - cyclobenzaprine (FLEXERIL) 10 mg tablet Take 1 tablet by mouth three times a day as needed for muscle spasm. May make drowsy - topiramate (TOPAMAX) 100 mg tablet Take 1 tablet by mouth two times a day. - lansoprazole (PREVACID) 30 mg capsule Take 1 capsule by mouth daily before breakfast. - pramipexole (MIRAPEX) 1.5 mg tablet Take 1 tablet by mouth daily at bedtime. - celecoxib (CELEBREX) 400 mg capsule Take 1 capsule by mouth once daily. Take with food - SUMAtriptan (IMITREX) 25 mg tablet Take 1 tablet by mouth at onset of headache and may repeat in 2 hrs if needed. - dulaglutide (TRULICITY) 3 mg/0.5 mL pen injector Inject 3 mg subcutaneously one time a week. Inject dose once per week. Discard Pen After - furosemide (LASIX) 40 mg tablet Take 1 tablet by mouth once daily. - ferrous sulfate 325 mg (65 mg iron) tablet Take 1 tablet by mouth every Sunday, Sunday, and Sunday. - lidocaine (LIDODERM) 5 % Apply 1 patch as directed every 24 hours. Remove after 12 hours. - mometasone-formoterol (DULERA) 50-5 mcg/actuation HFA aerosol inhaler Inhale 1 puff as instructed two times a day. Rinse mouth out after use. - Lancets Test blood sugar(s) once times daily. Dx: Type 2 DM - Controlled E11.9 Insulin: No - blood sugar diagnostic (BLOOD GLUCOSE TEST) test strip Test blood sugar(s) one time daily. Dx: Type 2 DM - Controlled E11.9 Insulin: No. Uses True Metrix test strips. - metFORMIN (GLUCOPHAGE) 500 mg tablet Take 2 tablets by mouth two times a day with meals. Take one additional 500 mg tab with breakfast or lunch until BS less than 250 - loratadine (CLARITIN) 10 mg tablet Take 1 tablet by mouth once daily. - glimepiride (AMARYL) 4 mg tablet Take 1 tablet by mouth daily with breakfast. Dose change, take one daily - montelukast (SINGULAIR) 10 mg tablet Take 1 tablet by mouth daily at bedtime. - QUEtiapine (SEROQUEL) 25 mg tablet Take 75 mg by mouth daily at bedtime. - lamoTRIgine (LAMICTAL) 200 mg tablet Take 1 tablet by mouth two times a day. - diphenhydrAMINE (BENADRYL) 25 mg capsule Take 1 capsule by mouth every 6 hours as needed for itching/rash. - glucose 4 gram chewable tablet Take 4 tablets by mouth as needed for low blood sugar. - Albuterol Sulfate 1.25 mg/3 mL nebulizer solution Use 1 Ampule via nebulizer every 4 hours as needed for wheezing/shortness of breath. - ARIPiprazole (ABILIFY) 5 mg tablet Take 1 tablet by mouth once daily. - LORazepam (ATIVAN) 1 mg tablet Take 1 tablet by mouth twice daily. As needed. - Nebulizer NEBULIZER and Supplies FOR HOME USE. DX: J45.40 - citalopram (CELEXA) 40 mg tablet Take 40 mg by mouth once daily. [facility] Problem List As Of Date 06/16/2025 Noted Resolved Asthma [J45.909] Allergic rhinitis [J30.9] Migraine without aura [G43.009] 03/29/2006 Supervision of other normal [Z34.80] 2006 12/12/2011 Supervision of other high-risk [O09.8*09/26/2006 12/12/2011 Personal history of pre-term labor [Z87.51] 11/07/2006 03/11/2018 LGSIL on Pap smear [R87.612] 12/26/2011 (more content not included)... [facility] CNOVon 05-12-2025 CNOV Office Visit (INTMWS ) NANCI RODRIGUEZ ([id number]) 1980 F Date Time Provider Department 05/12/25 3:40 PM JOHNSON RM INTMWS During your visit today, we recorded the following information about you: Pulse Respiration Blood pressure Weight 98/minute 16/minute 138/82 154.5 kg Johnson Rm, MRI CT TECH.SENIOR SHAREPOINT ARCHITECT 05/12/2025 5:13 PM Signed Subjective Patient ID: Nanci is a 44 year old female who presents for F/U 3 Month. HPI The patient is a 44-year-old female with T2DM, chronic low back pain, and anxiety disorder, presenting for evaluation of a severe migraine and refill of sumatriptan. Migraine: - Migraine today. - Out of Imitrex, DDM did not transfer prescription. Grief: - Nanci Rodriguez' mother on 06/09 from aggressive non-small cell lung cancer. - Experiencing significant grief; feels lost without her. - Denies depression; maintains appetite and hydration. - Has a supportive boyfriend and two grown children (ages 18 and 25) living at home. - Considering grief counseling but hesitant due to past negative experiences with counseling. - Family history of lung cancer; uncle also from small cell lung cancer. Anxiety: - History of anxiety, currently managed with medication. - Prefers to stay home due to anxiety. - Hesitant about group counseling due to anxiety. Chronic Back Pain: - Severe back pain, sometimes unable to get out of bed. - Taking hydrocodone 5 mg, 1-2 tablets every 6 hours, usually twice a day; reports inadequate pain relief. - Also taking Celebrex 400 mg daily and Flexeril. - Recent urine test confirmed adherence to pain medication. DM/Weight Loss: - Lost 35 lbs in the past 3 months through physical therapy, walking, and medication. - Current weight is 316 lbs, down from 365-370 lbs. - Taking Trulicity 3 mg weekly; reports no side effects. - A1c improved from 10.7% to 6.6% over 1.5 years. - Home blood glucose readings are no higher than 150 mg/dL. - Not interested in bariatric surgery, preferring to continue with current weight loss methods. - Believes she may be entering menopause due to recent changes in menstrual cycle. Smoking Cessation: - Smoking history of 5-6 years, currently smoking half a pack per day. - Recently resumed smoking after mother's passing. - Family has agreed to quit smoking together. - Working on reducing smoking with the goal of quitting. DIABETES MELLITUS: Notes well controlled DM. Without report of excessive thirst or increased frequency of urination, chest pain or dyspnea , numbness, tingling or pain in extremities, new or unusual visual symptoms, low sugar/hypoglycemic reactions, weight loss/gain, lightheadedness/dizzi ness, and bowel changes/loose stools. Patient's last HgA1C was Hemoglobin A1C (%) Date Value 04/28/2025 6.6 01/20/2025 8.8 02/02/2021 11.2 01/03/2021 12.6 ) ROS Constitutional: (+) weight loss Head: (+) migraine headache Eyes: (+) vision change Gastrointestinal: (-) nausea, (-) vomiting, (-) abdominal pain Genitourinary: (+) light menstrual flow Musculoskeletal: (+) back pain Psychiatric: (+) anxiety, (+) grief, (-) depressed mood Objective BP 138/82 Pulse 98 Resp 16 Wt (!) 154.5 kg (340 lb 9.8 oz) LMP 10/13/2024 (Exact Date) SpO2 98% BMI 61.34 kg/m? Physical Exam Vitals and nursing note reviewed. Constitutional: Appearance: Normal appearance. HENT: Head: Normocephalic and atraumatic. Eyes: Conjunctiva/sclera: Conjunctivae normal. Cardiovascular: Rate and Rhythm: Normal rate. Pulmonary: Effort: Pulmonary effort is normal. Musculoskeletal: Lumbar back: Tenderness present. Decreased range of motion. Comments: tenderness across low back Neurological: General: No focal deficit present. Mental Status: She is alert and oriented to person, place, and time. 1. Type 2 diabetes mellitus with other skin ulcer, without long-term current use of insulin ([facility]) (E11.622) 2. Diabetes mellitus type 2, controlled, without complications ([facility]) (E11.9) 3. Uncontrolled type 2 diabetes mellitus with hyperglycemia ([facility]) (E11.65) - HbA1c improved from 10.7% to 6.6% over 1.5 years; home glucose readings consistently <150 mg/dL. - Continue Trulicity 3 mg weekly; tolerating well without GI side effects. - Maintain current regimen; no dose increase at this time. A1c urine albumin/creatinine in 3 mos 4. Screening for diabetic retinopathy (Z13.5) - Advised patient to schedule eye exam due to changes in vision. 5. Screening for depression (Z13.31) 6. Encounter for screening examination for other mental health and behavioral disorders (Z13.39) 7. Encounter for immunization (Z23) - Discussed HPV, pneumonia, and influenza vaccines; patient deferred to next visit. 8. Moderate depressed bipolar I disorder ([facility]) (F31.32) Stable on current treatments 9. Plate (more content not included)... [facility] CNTHERAPYon 04-29-2025 CNTHERAPY OT/PT/Speech Visit (PTWS) NANCI RODRIGUEZ ([id number]) 1980 F Date Time Provider Department 04/29/25 6:00 PM NANCI COOK PTWS Date Time Provider Department Center 04/29/2025 6:00 PM [id number] COOK PTWS Yash Rolle Reason for Visit: Physical Therapy [503] Primary Visit Diagnosis:Chronic left-sided low back pain, unspecified whether sciatica present [M54.50, G89.29] Allergies As of Date: 04/29/2025 Noted Allergy Reaction PENICILLINS 08/24/2011 9 - Itching 4 - Hives MELATONIN 11/08/2016 2 - Rash 4 - Hives TRAMADOL 07/10/2013 14 - Other: See Comments Comments: tic like movements WELLBUTRIN (BUPROPION) 03/12/2019 5 - Intolerance Comments: Dry mouth--severe, intolerable Date Reviewed: 01/20/2025 Reviewed by: Sylwia Marcial LPN - Fully Assessed Prescriptions as of 04/29/2025 - HYDROcodone-acetamino phen (NORCO) 5-325 mg per tablet Take 1-2 tablets by mouth every 6 hours as needed for pain for up to 7 days. - promethazine (PHENERGAN) 12.5 mg tablet Take 1 tablet by mouth four times a day as needed for nausea/vomiting. - benzonatate (TESSALON PERLE) 100 mg capsule Take 1-2 capsules by mouth three times a day as needed. - cyclobenzaprine (FLEXERIL) 10 mg tablet Take 1 tablet by mouth three times a day as needed for muscle spasm. May make drowsy - furosemide (LASIX) 40 mg tablet Take 1 tablet by mouth once daily. - ferrous sulfate 325 mg (65 mg iron) tablet Take 1 tablet by mouth every Sunday, Sunday, and Sunday. - dulaglutide (TRULICITY) 3 mg/0.5 mL pen injector Inject 3 mg subcutaneously one time a week. Inject dose once per week. Discard Pen After - lidocaine (LIDODERM) 5 % Apply 1 patch as directed every 24 hours. Remove after 12 hours. - mometasone-formoterol (DULERA) 50-5 mcg/actuation HFA aerosol inhaler Inhale 1 puff as instructed two times a day. Rinse mouth out after use. - CPAP Needs replacement CPAP @ 15 cm of water with humidification. Mask (per patient preference) optional chin strap (if indicated) , filters, tubing, humidifier and lifetime supplies. G47.33 MARIA TERESA on CPAP - celecoxib (CELEBREX) 400 mg capsule Take 1 capsule by mouth once daily. Take with food - Lancets Test blood sugar(s) once times daily. Dx: Type 2 DM - Controlled E11.9 Insulin: No - blood sugar diagnostic (BLOOD GLUCOSE TEST) test strip Test blood sugar(s) one time daily. Dx: Type 2 DM - Controlled E11.9 Insulin: No. Uses True Metrix test strips. - metFORMIN (GLUCOPHAGE) 500 mg tablet Take 2 tablets by mouth two times a day with meals. Take one additional 500 mg tab with breakfast or lunch until BS less than 250 - SUMAtriptan (IMITREX) 25 mg tablet Take 1 tablet by mouth at onset of headache and may repeat in 2 hrs if needed. - loratadine (CLARITIN) 10 mg tablet Take 1 tablet by mouth once daily. - dulaglutide (TRULICITY) 0.75 mg/0.5 mL pen injector Inject 0.75 mg subcutaneously one time a week. Inject dose once per week. Discard Pen After - glimepiride (AMARYL) 4 mg tablet Take 1 tablet by mouth daily with breakfast. Dose change, take one daily - montelukast (SINGULAIR) 10 mg tablet Take 1 tablet by mouth daily at bedtime. - albuterol HFA (VENTOLIN HFA) 90 mcg/actuation inhaler Inhale 2 Puffs as instructed every 4 hours as needed. - topiramate (TOPAMAX) 100 mg tablet Take 1 tablet by mouth two times a day. - lansoprazole (PREVACID) 30 mg capsule Take 1 capsule by mouth daily before breakfast. - pramipexole (MIRAPEX) 1.5 mg tablet Take 1 tablet by mouth daily at bedtime. - QUEtiapine (SEROQUEL) 25 mg tablet Take 75 mg by mouth daily at bedtime. - lamoTRIgine (LAMICTAL) 200 mg tablet Take 1 tablet by mouth two times a day. - diphenhydrAMINE (BENADRYL) 25 mg capsule Take 1 capsule by mouth every 6 hours as needed for itching/rash. - glucose 4 gram chewable tablet Take 4 tablets by mouth as needed for low blood sugar. - Albuterol Sulfate 1.25 mg/3 mL nebulizer solution Use 1 Ampule via nebulizer every 4 hours as needed for wheezing/shortness of breath. - ARIPiprazole (ABILIFY) 5 mg tablet Take 1 tablet by mouth once daily. - FREESTYLE FREEDOM LITE monitoring kit USE DIRECTED - CPAP Needs lifetime supplies (mask, hoses, headgear, filters, water chamber) G47.33 (already has CPAP) - LORazepam (ATIVAN) 1 mg tablet Take 1 tablet by mouth twice daily. As needed. - Nebulizer NEBULIZER and Supplies FOR HOME USE. DX: J45.40 - citalopram (CELEXA) 40 mg tablet Take 40 mg by mouth once daily. [facility] Normal [facility] CBC panel Auto (Bld)on 04-28 Erythrocyte distribution width (RBC) [Ratio] 17.2 % High 11.5-15.0 [facility] Comment on above: Order Comment: Speci men Type: BLOOD SPECIMENOrdering Facility: [facility] Address: [address] [place] [address] Performed By: #### 5 8410-2 ####[facility] [id number] [place] [address] [place] Hematocrit (Bld) [Volume fraction] 42.3 % Normal 36.0-46.0 [facility] Comment on above: Order Comment: Speci men Type: BLOOD SPECIMENOrdering Facility: [facility] Address: [address] [place] [address] Performed By: #### 5 8410-2 ####[facility] [id number] [place] [address] [place] Hemoglobin (Bld) [Mass/Vol] 13.9 g/dL Normal 11.5-15.5 [facility] Comment on above: Order Comment: Speci men Type: BLOOD SPECIMENOrdering Facility: [facility] Address: [address] [place] [address] Performed By: #### 5 8410-2 ####[facility] H[facility]ITALNCLI [id number] [place] [address] [place] MCH (RBC) [Entitic mass] 27.7 pg Normal 26.0-34.0 [facility] Comment on above: Order Comment: Speci men Type: BLOOD SPECIMENOrdering Facility: [facility] Address: [address] [place] [address] Performed By: #### 5 8410-2 ####[facility]ITALNCBRIGH[facility] [id number] [place] [address] [place] MCHC (RBC) [Mass/Vol] 32.9 g/dL Normal 30.5-36.0 [facility] Comment on above: Order Comment: Speci men Type: BLOOD SPECIMENOrdering Facility: [facility] Address: [address] [place] [address] Performed By: #### 5 8410-2 ####[facility] [id number] [place] [address] [place] MCV (RBC) [Entitic vol] 84.4 fL Normal 80.0-100.0 C [facility] Comment on above: Order Comment: Speci men Type: BLOOD SPECIMENOrdering Facility: [facility] Address: [address] [place] [address] Performed By: #### 5 8410-2 ####[facility] [id number] [place] [address] [place] Nucleated RBC (Bld) [#/Vol] 10*3/uL Normal <0.01 [facility] Comment on above: Order Comment: Speci men Type: BLOOD SPECIMENOrdering Facility: [facility] Address: [address] [place], [place] [address] Performed By: #### 5 8410-2 ####[facility] [id number] [place] [address] [place] Platelet mean volume (Bld) [Entitic vol] 9.9 fL Normal 9.0-12.7 [facility] Comment on above: Order Comment: Speci men Type: BLOOD SPECIMENOrdering Facility: [facility] Address: [address] [place] [address] Performed By: #### 5 8410-2 ####[facility] ROSSBLUEA [id number] [place] [address] [place] Platelets (Bld) [#/Vol] 82 10*3/uL Low 150-400 C [facility] Comment on above: Order Comment: Speci men Type: BLOOD SPECIMENOrdering Facility: [facility] Address: [address] [place] [address] Result Comment: No c lot detected. Performed By: #### 5 8410-2 ####[facility] BRIGIDHILARY [id number] [place] [address] [place] RBC (Bld) [#/Vol] 5.01 10*6/uL Normal 3.90-5.20 [facility] Comment on above: Order Comment: Speci men Type: BLOOD SPECIMENOrdering Facility: [facility] Address: [address] [place] [address] Performed By: #### 5 8410-2 ####[facility]OSPITALANINEA [id number] [place] [address] [place] WBC (Bld) [#/Vol] 3.79 10*3/uL Normal 3.70-11.00 [facility] Comment on above: Order Comment: Speci men Type: BLOOD SPECIMENOrdering Facility: [facility] Address: [address] [place] [address] Performed By: #### 5 8410-2 ####[facility]ITALNCLIA [id number] [place] [address] [place] Comprehensive metabolic 2000 panelon 04-28-2025 Albumin [Mass/Vol] 3.9 g/dL Normal 3.9-4.9 [facility] Comment on above: Order Comment: Speci men Type: BLOOD SPECIMENOrdering Facility: [facility] Address: [address] [place] [address] Performed By: #### 2 4323-8 ####[facility] MILLTOWNCLIA [id number] [place] [address] [place] ALP [Catalytic activity/Vol] 104 U/L Normal 34-123 [facility] Comment on above: Order Comment: Speci men Type: BLOOD SPECIMENOrdering Facility: [facility] Address: [address] [place] [address] Performed By: #### 2 4323-8 ####[facility]ITALWNCLIA [id number] [place] [address] [place] ALT [Catalytic activity/Vol] 10 U/L Normal 7-38 [facility] Comment on above: Order Comment: Speci men Type: BLOOD SPECIMENOrdering Facility: [facility] Address: [address] [place] [address] Performed By: #### 2 4323-8 ####[facility]ITALNCLIA [id number] [place] [address] [place] Anion gap [Moles/Vol] 8 mmol/L Normal 8-15 [facility] Comment on above: Order Comment: Speci men Type: BLOOD SPECIMENOrdering Facility: [facility] Address: [address] [place] [address] Performed By: #### 2 4323-8 ####[facility] MILLTOWNCLIA [id number] [place] [address] [place] AST [Catalytic activity/Vol] 18 U/L Normal 13-35 [facility] Comment on above: Order Comment: Speci men Type: BLOOD SPECIMENOrdering Facility: [facility] Address: [address] [place] [address] Performed By: #### 2 4323-8 ####[facility] MILLWNCLIA [id number] [place] [address] [place] Bilirubin [Mass/Vol] 0.6 mg/dL Normal 0.2-1.3 [facility] Comment on above: Order Comment: Speci men Type: BLOOD SPECIMENOrdering Facility: [facility] Address: [address] [place] [address] Performed By: #### 2 4323-8 ####[facility] YASH MILLWJOSELIA [id number] [place] [address] [place] Calcium [Mass/Vol] 9.6 mg/dL Normal 8.5-10.2 [facility] Comment on above: Order Comment: Speci men Type: BLOOD SPECIMENOrdering Facility: [facility] Address: [address] [place] [address] Performed By: #### 2 4323-8 ####[facility]ITALNCLIA [id number] [place] [address] [place] Chloride [Moles/Vol] 105 mmol/L Normal 98-107 [facility] Comment on above: Order Comment: Speci men Type: BLOOD SPECIMENOrdering Facility: [facility] Address: [address] [place] [address] Performed By: #### 2 4323-8 ####[facility]ITALNCLIA [id number] [place] [address] [place] CO2 [Moles/Vol] 22 mmol/L Normal 22-30 [facility] Comment on above: Order Comment: Speci men Type: BLOOD SPECIMENOrdering Facility: [facility] Address: [address] [place] [address] Performed By: #### 2 4323-8 ####[facility] YASH MILLWEST GREENWICHNCLIA [id number] [place] [address] [place] Creatinine [Mass/Vol] 0.66 mg/dL Normal 0.58-0.96 [facility] Comment on above: Order Comment: Speci men Type: BLOOD SPECIMENOrdering Facility: [facility] Address: [address] [place] [address] Performed By: #### 2 4323-8 ####[facility] [id number] [place] [address] [place] eGFRcr SerPlBld CKD-EPI 2020 112 mL/min/1.73m??? Normal >=60 [facility] Comment on above: Order Comment: Mitzi veronika Type: BLOOD SPECIMENOrdering Facility: [facility] Address: [address] [place] [address] Result Comment: Angela mated Glomerular Filtration Rate (eGFR) is calculated using the 2020 CKD-EPI creatinine equation. This equation utilizes serum creatinine, sex, and age as parameters. The creatinine assay has traceable calibration to isotope dilution-mass spectrometry. Refer to KDIGO guidelines for clinical interpretation. In patients with unstable renal function, e.g. those with acute kidney injury, the eGFR may not accurately reflect actual GFR. Performed By: #### 2 4323-8 ####[facility] HOSPITALLIA [id number] [place] [address] [place] Glucose [Mass/Vol] 128 mg/dL High 74-99 [facility] Comment on above: Order Comment: Mitzi veronika Type: BLOOD SPECIMENOrdering Facility: [facility] Address: [address] [place] [address] Result Comment: The [place] Diabetes Association (ADA) provides guidance for cutoff values for fasting glucose and random glucose. The ADA defines fasting as no caloric intake for at least 8 hours. Fasting plasma glucose results between 100 to 125 mg/dL indicate increased risk for diabetes (prediabetes). Fasting plasma glucose results greater than or equal to 126 mg/dL meet the criteria for diagnosis of diabetes. In the absence of unequivocal hyperglycemia, results should be confirmed by repeat testing. In a patient with classic symptoms of hyperglycemia or hyperglycemic crisis, random plasma glucose results greater than or equal to 200 mg/dL meet the criteria for diagnosis of diabetes. Reference: Standards of Medical Care in Diabetes 2016, [place] [employer] Diabetes Association. Diabetes Care. 2016.39(Suppl 1). Performed By: #### 2 4323-8 ####[facility] YASH MILLTOWNCLIA [id number] [place] [address] [place] Potassium [Moles/Vol] 4.3 mmol/L Normal 3.7-5.1 [facility] Comment on above: Order Comment: Speci men Type: BLOOD SPECIMENOrdering Facility: [facility] Address: [address] [place] [address] Performed By: #### 2 4323-8 ####[facility] MILLWNCLIA [id number] [place] [address] [place] Protein [Mass/Vol] 7.4 g/dL Normal 6.3-8.0 [facility] Comment on above: Order Comment: Speci men Type: BLOOD SPECIMENOrdering Facility: [facility] Address: [address] [place] [address] Performed By: #### 2 4323-8 ####[facility] HOSPITALJOSELIA [id number] [place] [address] [place] Sodium [Moles/Vol] 135 mmol/L Low 136-144 [facility] Comment on above: Order Comment: Speci men Type: BLOOD SPECIMENOrdering Facility: [facility] Address: [address] [place] [address] Performed By: #### 2 4323-8 ####[facility] MILLTOWNCLIA [id number] [place] [address] [place] Urea nitrogen [Mass/Vol] 12 mg/dL Normal 7-21 [facility] Comment on above: Order Comment: Speci men Type: BLOOD SPECIMENOrdering Facility: [facility] Address: [address] [place], [place] [address] Performed By: #### 2 4323-8 ####[facility]OSPITALWNCLIA [id number] [address] [place] HbA1c (Bld)on 04-28-2025 Average glucose Estimated from glycated hemoglobin (Bld) [Mass/Vol] 143 mg/dL Normal [facility] Comment on above: Order Comment: Speci men Type: BLOOD SPECIMENOrdering Facility: [facility] Address: [address] [place] [address] Result Comment: eAG: (Estimated average glucose) is a calculated value from HgbA1c and is community representative of the average blood glucose level in the last 2-3 month period. Performed By: #### 5 5454-3 ####[facility] LABIA [id number] [place] [address] [place] HbA1c (Bld) [Mass fraction] 6.6 % High 4.3-5.6 [facility] Comment on above: Order Comment: Speci men Type: BLOOD SPECIMENOrdering Facility: [facility] Address: [address] [place] [address] Result Comment: [place] Diabetes Association guidelines indicate that patients with HgbA1c in the range 5.7-6.4% are at increased risk for development of diabetes, and intervention by lifestyle modification may be beneficial. HgbA1c greater or equal to 6.5% is considered diagnostic of diabetes. Performed By: #### 5 5454-3 ####[facility] LABIA [id number] [place] [address] [place] TOXICOLOGY SCREEN, ROUTINE U RINEon 04-28-2025 Amphetamines Confirm (U) [Mass/Vol] Negative Normal Negative [facility] Comment on above: Order Comment: Speci men Type: URINE SPECIMENOrdering Facility: [facility] Address: [address] [place] [address] Result Comment: Cuto ff threshold at 1000 ng/mL. Performed By: #### U TOX2 ####[facility] LABIA [id number] [place] [address] [place] BARBITURATES, URINE Negative Normal Negative [facility] Comment on above: Order Comment: Speci men Type: URINE SPECIMENOrdering Facility: [facility] Address: [address] [place] [address] Result Comment: Cuto ff threshold at 200 ng/mL. Performed By: #### U TOX2 ####[facility] LABCLIA [id number] [place] [address] [place] BENZODIAZEPINES, URINE Negative Normal Negative [facility] Comment on above: Order Comment: Speci men Type: URINE SPECIMENOrdering Facility: [facility] Address: [address] [place] [address] Result Comment: Cuto ff threshold at 200 ng/mL. Performed By: #### U TOX2 ####[facility] LABIA [id number] [place] [address] [place] Cannabinoids Screen Ql (U) Negative Normal Negative [facility] Comment on above: Order Comment: Speci men Type: URINE SPECIMENOrdering Facility: [facility] Address: [address] [place] [address] Result Comment: Cuto ff threshold at 50 ng/mL. Performed By: #### U TOX2 ####[facility] LABCLIA [id number] [place] [address] [place] Cocaine Ql (U) Negative Normal Negative [facility] Comment on above: Order Comment: Speci men Type: URINE SPECIMENOrdering Facility: [facility] Address: [address] [place] [address] Result Comment: Cuto ff threshold at 300 ng/mL. Performed By: #### U TOX2 ####[facility] LABCLIA [id number] [place] [address] [place] Ethanol (U) [Mass/Vol] <11 Normal <11 [facility] Comment on above: Order Comment: Speci men Type: URINE SPECIMENOrdering Facility: [facility] Address: [address] [place] [address] Performed By: #### U TOX2 ####[facility] LABCLIA [id number] [place] [address] [place] fentaNYL Screen Ql (U) Negative Normal Negative [facility] Comment on above: Order Comment: Speci men Type: URINE SPECIMENOrdering Facility: [facility] Address: [address] [place] [address] Result Comment: Cuto ff threshold at 5 ng/mL. Performed By: #### U TOX2 ####[facility] LABCLIA [id number] [place] [address] [place] Opiates Screen Ql (U) Positive Abnormal Negative [facility] Comment on above: Order Comment: Speci men Type: URINE SPECIMENOrdering Facility: [facility] Address: [address] [place] [address] Result Comment: Cuto ff threshold at 300 ng/mL. Performed By: #### U TOX2 ####[facility] LABCLIA [id number] [address] [place] oxyCODONE cutoff Screen (U) [Mass/Vol] Negative Normal Negative [facility] Comment on above: Order Comment: Speci men Type: URINE SPECIMENOrdering Facility: [facility] Address: [address] [place] [address] Result Comment: Cuto ff threshold at 100 ng/mL. Performed By: #### U TOX2 ####[facility] LABCLIA [id number] [address] [place] Phencyclidine Ql (U) Negative Normal Negative [facility] Comment on above: Order Comment: Speci men Type: URINE SPECIMENOrdering Facility: [facility] Address: [address] [place] [address] Result Comment: Cuto ff threshold at 25 ng/mL. Performed By: #### U TOX2 ####[facility] LABCLIA [id number] [place] [address] [place] CNPNon 04-08-2025 CNPN Telephone (INTMWS) NANCI RODRIGUEZ ([id number]) 1980 F Date Time Provider Department 04/08/25 RODRI CHAUHAN INTMWS During your visit today, we recorded the following information about you: Helen Sullivan, RN 04/08/2025 5:45 PM Signed Pt calling in stating her insurance will not cover her [place] and pt wanting to know what office can do about that as she needs her medication. Pt states insurance won't cover it because it is being prescribed weekly and in high doses. Called [facility] and spoke with [facility] pharmacist. He states that pt's overdose score is too high and that is why her insurance will not cover it. He also feels pt is getting too often and is on too many different scripts. Stating the pt is going to need a new pharmacy as they are note going to fill it anymore. He asked if pt is seeing a paint mixer hand. It appears that a Dr. Colbert referred pt to pain management. Unsure if pt has followed up. Pt is supposed to be doing physical therapy but has cancelled almost all of her appts. She has gone to PT 3 times 02/24, 03/13 and 03/27. Pt is scheduled to go weekly. Will forward to provider for review. Helen Sullivan, TAZ 04/08/2025 8:44 PM Addendum Pt calling in asking that prescription for [place] be sent to [facility] pharmacy now. Rodri Chauhan MD 04/08/2025 6:54 PM Signed I cannot do anything if insurance will not cover for a medication--she would have to pay out of pocket. Looks like pharmacist just does not want to fill RX. Her MMED is low She occasionally got a RX for lorazepam for 7 pills (like in February and January). Has not had RX since February. Okay RX, but would see why missing PT Rodri Chauhan MD 04/08/2025 7:17 PM Signed Also added urine tox screen to be done when here for appointment (needs done per protocol) Lizabeth Hurtado LPN 04/09/2025 1:24 PM Signed Patient notified of providers message and verbalized understanding. Patient states that she missed her last couple PT appointments due to the passing of her mother yesterday and had taken so time to grieve. She state she will go to the next couple and will be here for appt in Apr Allergies As of Date: 04/08/2025 Noted Allergy Reaction PENICILLINS 08/24/2011 9 - Itching 4 - Hives MELATONIN 11/08/2016 2 - Rash 4 - Hives TRAMADOL 07/10/2013 14 - Other: See Comments Comments: tic like movements WELLBUTRIN (BUPROPION) 03/12/2019 5 - Intolerance Comments: Dry mouth--severe, intolerable Date Reviewed: 01/20/2025 Reviewed by: Sylwia Marcial LPN - Fully Assessed Reason for Visit: Medication Problem [65] Cmt: [place] Primary Visit Diagnosis:Encounter for long-term current use of medication [Z79.899] Other Visit Diagnosis:Chronic midline low back pain with bilateral sciatica [M54.41, M54.42, G89.29] Order(s):HYDROcodone- acetaminophen (NORCO) 5-325 mg per tabletTake 1-2 tablets by mouth every 6 hours as needed for pain for up to 7 days.Disp: 28 tabletRfl: 0 TOXICOLOGY SCREEN, ROUTINE URINE [SQUTOX2] Order #: [id number] FUTURE Prescriptions as of 04/09/2025 - cyclobenzaprine (FLEXERIL) 10 mg tablet Take 1 tablet by mouth three times a day as needed for muscle spasm. May make drowsy - HYDROcodone-acetamino phen (NORCO) 5-325 mg per tablet Take 1-2 tablets by mouth every 6 hours as needed for pain for up to 7 days. - furosemide (LASIX) 40 mg tablet Take 1 tablet by mouth once daily. - ferrous sulfate 325 mg (65 mg iron) tablet Take 1 tablet by mouth every Sunday, Sunday, and Sunday. - dulaglutide (TRULICITY) 3 mg/0.5 mL pen injector Inject 3 mg subcutaneously one time a week. Inject dose once per week. Discard Pen After - lidocaine (LIDODERM) 5 % Apply 1 patch as directed every 24 hours. Remove after 12 hours. - mometasone-formoterol (DULERA) 50-5 mcg/actuation HFA aerosol inhaler Inhale 1 puff as instructed two times a day. Rinse mouth out after use. - CPAP Needs replacement CPAP @ 15 cm of water with humidification. Mask (per patient preference) optional chin strap (if indicated) , filters, tubing, humidifier and lifetime supplies. G47.33 MARIA TERESA on CPAP - celecoxib (CELEBREX) 400 mg capsule Take 1 capsule by mouth once daily. Take with food - Lancets Test blood sugar(s) once times daily. Dx: Type 2 DM - Controlled E11.9 Insulin: No - blood sugar diagnostic (BLOOD GLUCOSE TEST) test strip Test blood sugar(s) one time daily. Dx: Type 2 DM - Controlled E11.9 Insulin: No. Uses True Metrix test strips. - metFORMIN (GLUCOPHAGE) 500 mg tablet Take 2 tablets by mouth two times a day with meals. Take one additional 500 mg tab with breakfast or lunch until BS less than 250 - SUMAtriptan (IMITREX) 25 mg tablet Take 1 tablet by mouth at onset of headache and may repeat in 2 hrs if needed. - promethazine (PHENERGAN) 12.5 mg tablet Take 1 tablet by mouth four times a day as nee (more content not included)... Normal [facility] CNTHERAPYon 03-27-2025 CNTHERAPY OT/PT/Speech Visit (PTWS) NANCI RODRIGUEZ ([id number]) 1980 F Date Time Provider Department 03/27/25 12:30 PM NANCI COOK PTPATTI Date Time Provider Department [place] 03/27/2025 12:30 PM [id number] COOK PTWS Yash Rolle Reason for Visit: Physical Therapy [503] Primary Visit Diagnosis:Chronic left-sided low back pain, unspecified whether sciatica present [M54.50, G89.29] Allergies As of Date: 03/27/2025 Noted Allergy Reaction PENICILLINS 08/24/2011 9 - Itching 4 - Hives MELATONIN 11/08/2016 2 - Rash 4 - Hives TRAMADOL 07/10/2013 14 - Other: See Comments Comments: tic like movements WELLBUTRIN (BUPROPION) 03/12/2019 5 - Intolerance Comments: Dry mouth--severe, intolerable Date Reviewed: 01/20/2025 Reviewed by: Sylwia Marcial LPN - Fully Assessed Prescriptions as of 03/27/2025 - HYDROcodone-acetamino phen (NORCO) 5-325 mg per tablet Take 1-2 tablets by mouth every 6 hours as needed for pain for up to 7 days. - cyclobenzaprine (FLEXERIL) 10 mg tablet Take 1 tablet by mouth three times a day as needed for muscle spasm. May make drowsy - dulaglutide (TRULICITY) 3 mg/0.5 mL pen injector Inject 3 mg subcutaneously one time a week. Inject dose once per week. Discard Pen After - lidocaine (LIDODERM) 5 % Apply 1 patch as directed every 24 hours. Remove after 12 hours. - mometasone-formoterol (DULERA) 50-5 mcg/actuation HFA aerosol inhaler Inhale 1 puff as instructed two times a day. Rinse mouth out after use. - CPAP Needs replacement CPAP @ 15 cm of water with humidification. Mask (per patient preference) optional chin strap (if indicated) , filters, tubing, humidifier and lifetime supplies. G47.33 MARIA TERESA on CPAP - celecoxib (CELEBREX) 400 mg capsule Take 1 capsule by mouth once daily. Take with food - Lancets Test blood sugar(s) once times daily. Dx: Type 2 DM - Controlled E11.9 Insulin: No - blood sugar diagnostic (BLOOD GLUCOSE TEST) test strip Test blood sugar(s) one time daily. Dx: Type 2 DM - Controlled E11.9 Insulin: No. Uses True Metrix test strips. - metFORMIN (GLUCOPHAGE) 500 mg tablet Take 2 tablets by mouth two times a day with meals. Take one additional 500 mg tab with breakfast or lunch until BS less than 250 - furosemide (LASIX) 40 mg tablet Take 1 tablet by mouth once daily. - SUMAtriptan (IMITREX) 25 mg tablet Take 1 tablet by mouth at onset of headache and may repeat in 2 hrs if needed. - promethazine (PHENERGAN) 12.5 mg tablet Take 1 tablet by mouth four times a day as needed for nausea/vomiting. - loratadine (CLARITIN) 10 mg tablet Take 1 tablet by mouth once daily. - dulaglutide (TRULICITY) 0.75 mg/0.5 mL pen injector Inject 0.75 mg subcutaneously one time a week. Inject dose once per week. Discard Pen After - benzonatate (TESSALON PERLE) 100 mg capsule Take 1-2 capsules by mouth three times a day as needed. - glimepiride (AMARYL) 4 mg tablet Take 1 tablet by mouth daily with breakfast. Dose change, take one daily - montelukast (SINGULAIR) 10 mg tablet Take 1 tablet by mouth daily at bedtime. - albuterol HFA (VENTOLIN HFA) 90 mcg/actuation inhaler Inhale 2 Puffs as instructed every 4 hours as needed. - ferrous sulfate 325 mg (65 mg iron) tablet Take 1 tablet by mouth every Sunday, Sunday, and Sunday. - topiramate (TOPAMAX) 100 mg tablet Take 1 tablet by mouth two times a day. - lansoprazole (PREVACID) 30 mg capsule Take 1 capsule by mouth daily before breakfast. - pramipexole (MIRAPEX) 1.5 mg tablet Take 1 tablet by mouth daily at bedtime. - QUEtiapine (SEROQUEL) 25 mg tablet Take 75 mg by mouth daily at bedtime. - lamoTRIgine (LAMICTAL) 200 mg tablet Take 1 tablet by mouth two times a day. - diphenhydrAMINE (BENADRYL) 25 mg capsule Take 1 capsule by mouth every 6 hours as needed for itching/rash. - glucose 4 gram chewable tablet Take 4 tablets by mouth as needed for low blood sugar. - Albuterol Sulfate 1.25 mg/3 mL nebulizer solution Use 1 Ampule via nebulizer every 4 hours as needed for wheezing/shortness of breath. - ARIPiprazole (ABILIFY) 5 mg tablet Take 1 tablet by mouth once daily. - FREESTYLE FREEDOM LITE monitoring kit USE DIRECTED - CPAP Needs lifetime supplies (mask, hoses, headgear, filters, water chamber) G47.33 (already has CPAP) - LORazepam (ATIVAN) 1 mg tablet Take 1 tablet by mouth twice daily. As needed. - Nebulizer NEBULIZER and Supplies FOR HOME USE. DX: J45.40 - citalopram (CELEXA) 40 mg tablet Take 40 mg by mouth once daily. [facility] CNTHERAPYon 03-13-2025 CNTHERAPY OT/PT/Speech Visit (PTWS) NANCI RODRIGUEZ ([id number]) 1980 F Date Time Provider Department 03/13/25 12:30 PM NANCI COOK PTPATTI Date Time Provider Department Center 03/13/2025 12:30 PM [id number] COOK PTWS Yash Rolle Reason for Visit: Physical Therapy [503] Primary Visit Diagnosis:Chronic left-sided low back pain, unspecified whether sciatica present [M54.50, G89.29] Allergies As of Date: 03/13/2025 Noted Allergy Reaction PENICILLINS 08/24/2011 9 - Itching 4 - Hives MELATONIN 11/08/2016 2 - Rash 4 - Hives TRAMADOL 07/10/2013 14 - Other: See Comments Comments: tic like movements WELLBUTRIN (BUPROPION) 03/12/2019 5 - Intolerance Comments: Dry mouth--severe, intolerable Date Reviewed: 01/20/2025 Reviewed by: Sylwia Marcial LPN - Fully Assessed Prescriptions as of 03/13/2025 - HYDROcodone-acetamino phen (NORCO) 5-325 mg per tablet Take 1-2 tablets by mouth every 6 hours as needed for pain for up to 7 days. - cyclobenzaprine (FLEXERIL) 10 mg tablet Take 1 tablet by mouth three times a day as needed for muscle spasm. May make drowsy - dulaglutide (TRULICITY) 3 mg/0.5 mL pen injector Inject 3 mg subcutaneously one time a week. Inject dose once per week. Discard Pen After - lidocaine (LIDODERM) 5 % Apply 1 patch as directed every 24 hours. Remove after 12 hours. - mometasone-formoterol (DULERA) 50-5 mcg/actuation HFA aerosol inhaler Inhale 1 puff as instructed two times a day. Rinse mouth out after use. - CPAP Needs replacement CPAP @ 15 cm of water with humidification. Mask (per patient preference) optional chin strap (if indicated) , filters, tubing, humidifier and lifetime supplies. G47.33 MARIA TERESA on CPAP - celecoxib (CELEBREX) 400 mg capsule Take 1 capsule by mouth once daily. Take with food - Lancets Test blood sugar(s) once times daily. Dx: Type 2 DM - Controlled E11.9 Insulin: No - blood sugar diagnostic (BLOOD GLUCOSE TEST) test strip Test blood sugar(s) one time daily. Dx: Type 2 DM - Controlled E11.9 Insulin: No. Uses True Metrix test strips. - metFORMIN (GLUCOPHAGE) 500 mg tablet Take 2 tablets by mouth two times a day with meals. Take one additional 500 mg tab with breakfast or lunch until BS less than 250 - furosemide (LASIX) 40 mg tablet Take 1 tablet by mouth once daily. - SUMAtriptan (IMITREX) 25 mg tablet Take 1 tablet by mouth at onset of headache and may repeat in 2 hrs if needed. - promethazine (PHENERGAN) 12.5 mg tablet Take 1 tablet by mouth four times a day as needed for nausea/vomiting. - loratadine (CLARITIN) 10 mg tablet Take 1 tablet by mouth once daily. - dulaglutide (TRULICITY) 0.75 mg/0.5 mL pen injector Inject 0.75 mg subcutaneously one time a week. Inject dose once per week. Discard Pen After - benzonatate (TESSALON PERLE) 100 mg capsule Take 1-2 capsules by mouth three times a day as needed. - glimepiride (AMARYL) 4 mg tablet Take 1 tablet by mouth daily with breakfast. Dose change, take one daily - montelukast (SINGULAIR) 10 mg tablet Take 1 tablet by mouth daily at bedtime. - albuterol HFA (VENTOLIN HFA) 90 mcg/actuation inhaler Inhale 2 Puffs as instructed every 4 hours as needed. - ferrous sulfate 325 mg (65 mg iron) tablet Take 1 tablet by mouth every Sunday, Sunday, and Sunday. - topiramate (TOPAMAX) 100 mg tablet Take 1 tablet by mouth two times a day. - lansoprazole (PREVACID) 30 mg capsule Take 1 capsule by mouth daily before breakfast. - pramipexole (MIRAPEX) 1.5 mg tablet Take 1 tablet by mouth daily at bedtime. - QUEtiapine (SEROQUEL) 25 mg tablet Take 75 mg by mouth daily at bedtime. - lamoTRIgine (LAMICTAL) 200 mg tablet Take 1 tablet by mouth two times a day. - diphenhydrAMINE (BENADRYL) 25 mg capsule Take 1 capsule by mouth every 6 hours as needed for itching/rash. - glucose 4 gram chewable tablet Take 4 tablets by mouth as needed for low blood sugar. - Albuterol Sulfate 1.25 mg/3 mL nebulizer solution Use 1 Ampule via nebulizer every 4 hours as needed for wheezing/shortness of breath. - ARIPiprazole (ABILIFY) 5 mg tablet Take 1 tablet by mouth once daily. - [employer] FREEDOM LITE monitoring kit USE DIRECTED - CPAP Needs lifetime supplies (mask, hoses, headgear, filters, water chamber) G47.33 (already has CPAP) - LORazepam (ATIVAN) 1 mg tablet Take 1 tablet by mouth twice daily. As needed. - Nebulizer NEBULIZER and Supplies FOR HOME USE. DX: J45.40 - citalopram (CELEXA) 40 mg tablet Take 40 mg by mouth once daily. [facility] Imaging Nurse: Addendum Therapy (PT/OT/Speech/Resp) ID: [id number] 03/13/2025 12:32 PM Author: NANCI COOK Signed by NANCI COOK PT on 03/13/2025 at 12:32 PM * * * This document replaces document [id number] * * * Document text: (more content not included)... Normal [facility] THERAPY NTon 03-13-2025 THERAPY NT HNO ID: [id number] Author: NANCI COOK PT Service: ? Author Type: Physical Therapist Type: Therapy (PT/OT/Speech/Resp) Filed: 03/13/2025 12:32 Note Text: Program_ID:[id number] Access Code: [email or web address] URL: [email or web address]/ Date: 03-13-2025 Prepared By: Nanci Cook Program Notes Exercises - Seated Transversus Abdominis Bracing - 2 x daily - 7 x weekly - 4 sets - 10 reps - Standing Lumbar Extension - 2 x daily - 7 x weekly - 5 sets - 5 reps - Standing Gluteal Sets - 2 x daily - 7 x weekly - 3 sets - 5 reps - Seated Heel Raise - 2 x daily - 7 x weekly - 3 sets - 12 reps Normal [facility] [id number] 02-24-2025 [id number] HNO ID: [id number] Author: NANCI COOK PT Service: ? Author Type: Physical Therapist Type: [id number] Filed: 02/24/2025 16:17 Note Text: [facility] Physical Therapy Plan of Care Certification Patient Name: Nanci Rodriguez : 1980 [facility] #: [id number] Date: 02/24/2025 To: Johnson Rm APRN.SENIOR SHAREPOINT ARCHITECT From Therapist: Nanci Cook PT RE: Patient Certification/ Recertification Your review, approval and electronic signature are required in order to comply with Payor: [facility] MEDICAID / Plan: [facility] MEDICAID / Product Type: Medicaid / regulations. The identified Physical Therapy PLAN OF CARE for the patient is as follows: M54.50, G89.29 Chronic midline low back pain, unspecified whether sciatica present M54.16 Radiculopathy of lumbar region PLAN OF CARE: Assessment: Nanci Rodriguez presents with diagnosis of chronic low back pain that interferes with standing, rising from a chair, sitting, walking, walking in the house, walking in the community, stair negotiation, lifting, bed mobility, sleeping . The patient presents with impairments in ADL's, balance, gait, independence in exercise, joint mobility, overall function, patient reported outcome measures, posture, range of motion, strength, and symptom management. PROMIS? (Patient-Reported Outcomes Measurement Information System) scores were reviewed and identified as a rehabilitation concern. Prognosis for therapy is Good due to: current objective clinical presentation . The patient will benefit from skilled therapy services to meet the goals established for this plan of care as noted below. Classification Pain Mechanism Classification: Nociplastic/Central Low Back Pain Classification: Central Mechanism/Nociplastic Pain Goals for Episode of Care: established 02/24/25 Independent in home exercises. Patient will decrease pain to 1-2/10 with functional activities to allow patient to improve ambulation, transfers, and standing tolerance for ADLs. Restore pain-free lumbar ROM to minimal to no limitation extension to allow for improved posture and reduced paraspinal muscle strain with standing/walking and transfers. Stand / Walk 10-15 minutes without increased pain/symptoms. Sleep through night without pain/symptoms. Maintain proper sitting posture throughout session Patient Goals: reduce LBP, get MRI approved by insurance. Sleep better and get my health better. Walk better. Time Frame for Goals and Treatment : 04/07/25 Planned Interventions, Frequency, and Duration: Current Frequency: 1x/week Duration: 6 weeks Total Number of Visits Planned: 6 Planned Treatment Interventions: Therapeutic exercise (32729), Neuromuscular re-education (98012), Manual therapy (85526), Therapeutic activities (30498), Self-nursing home management (20865), Gait Training (33901) PLAN FOR NEXT VISIT: assess symptom response to seated TA activation Patient demonstrates good understanding of plan of care and treatment. The above goals and plan of care were discussed and agreed upon by patient/family. For further details regarding this patient refer to the Physical Therapy electronically documented visit dated 02/24/2025. Provider Attestation I have reviewed the treatment plan for Nanci Rodriguez, CC# [id number] for the period of 02/24/25 -- 04/07/25, established on 02/24/2025. Signature certifies the need for therapy services. [facility] 02-24-2025 CNPN Telephone (INTMWS) RODRIGUEZNANCI TARIQ ([id number]) 1980 F Date Time Provider Department 02/24/25 RODRI CHAUHAN INTMWS During your visit today, we recorded the following information about you: Tanya Angelo 02/24/2025 9:38 AM Signed Error. Tanya Salinas Pss Allergies As of Date: 02/24/2025 Noted Allergy Reaction PENICILLINS 08/24/2011 9 - Itching 4 - Hives MELATONIN 11/08/2016 2 - Rash 4 - Hives TRAMADOL 07/10/2013 14 - Other: See Comments Comments: tic like movements WELLBUTRIN (BUPROPION) 03/12/2019 5 - Intolerance Comments: Dry mouth--severe, intolerable Date Reviewed: 01/20/2025 Reviewed by: Sylwia Marcial LPN - Fully Assessed Reason for Visit: Refill Request [94] Prescriptions as of 02/24/2025 - HYDROcodone-acetamino phen (NORCO) 5-325 mg per tablet Take 1-2 tablets by mouth every 6 hours as needed for pain for up to 7 days. Patient should start on February 24, 2025. - cyclobenzaprine (FLEXERIL) 10 mg tablet Take 1 tablet by mouth three times a day as needed for muscle spasm. May make drowsy - dulaglutide (TRULICITY) 3 mg/0.5 mL pen injector Inject 3 mg subcutaneously one time a week. Inject dose once per week. Discard Pen After - lidocaine (LIDODERM) 5 % Apply 1 patch as directed every 24 hours. Remove after 12 hours. - mometasone-formoterol (DULERA) 50-5 mcg/actuation HFA aerosol inhaler Inhale 1 puff as instructed two times a day. Rinse mouth out after use. - CPAP Needs replacement CPAP @ 15 cm of water with humidification. Mask (per patient preference) optional chin strap (if indicated) , filters, tubing, humidifier and lifetime supplies. G47.33 MARIA TERESA on CPAP - celecoxib (CELEBREX) 400 mg capsule Take 1 capsule by mouth once daily. Take with food - Lancets Test blood sugar(s) once times daily. Dx: Type 2 DM - Controlled E11.9 Insulin: No - blood sugar diagnostic (BLOOD GLUCOSE TEST) test strip Test blood sugar(s) one time daily. Dx: Type 2 DM - Controlled E11.9 Insulin: No. Uses True Metrix test strips. - metFORMIN (GLUCOPHAGE) 500 mg tablet Take 2 tablets by mouth two times a day with meals. Take one additional 500 mg tab with breakfast or lunch until BS less than 250 - furosemide (LASIX) 40 mg tablet Take 1 tablet by mouth once daily. - SUMAtriptan (IMITREX) 25 mg tablet Take 1 tablet by mouth at onset of headache and may repeat in 2 hrs if needed. - promethazine (PHENERGAN) 12.5 mg tablet Take 1 tablet by mouth four times a day as needed for nausea/vomiting. - loratadine (CLARITIN) 10 mg tablet Take 1 tablet by mouth once daily. - dulaglutide (TRULICITY) 0.75 mg/0.5 mL pen injector Inject 0.75 mg subcutaneously one time a week. Inject dose once per week. Discard Pen After - benzonatate (TESSALON PERLE) 100 mg capsule Take 1-2 capsules by mouth three times a day as needed. - glimepiride (AMARYL) 4 mg tablet Take 1 tablet by mouth daily with breakfast. Dose change, take one daily - montelukast (SINGULAIR) 10 mg tablet Take 1 tablet by mouth daily at bedtime. - albuterol HFA (VENTOLIN HFA) 90 mcg/actuation inhaler Inhale 2 Puffs as instructed every 4 hours as needed. - ferrous sulfate 325 mg (65 mg iron) tablet Take 1 tablet by mouth every Sunday, Sunday, and Sunday. - topiramate (TOPAMAX) 100 mg tablet Take 1 tablet by mouth two times a day. - lansoprazole (PREVACID) 30 mg capsule Take 1 capsule by mouth daily before breakfast. - pramipexole (MIRAPEX) 1.5 mg tablet Take 1 tablet by mouth daily at bedtime. - QUEtiapine (SEROQUEL) 25 mg tablet Take 75 mg by mouth daily at bedtime. - lamoTRIgine (LAMICTAL) 200 mg tablet Take 1 tablet by mouth two times a day. - diphenhydrAMINE (BENADRYL) 25 mg capsule Take 1 capsule by mouth every 6 hours as needed for itching/rash. - glucose 4 gram chewable tablet Take 4 tablets by mouth as needed for low blood sugar. - Albuterol Sulfate 1.25 mg/3 mL nebulizer solution Use 1 Ampule via nebulizer every 4 hours as needed for wheezing/shortness of breath. - ARIPiprazole (ABILIFY) 5 mg tablet Take 1 tablet by mouth once daily. - [employer] LITE monitoring kit USE DIRECTED - CPAP Needs lifetime supplies (mask, hoses, headgear, filters, water chamber) G47.33 (already has CPAP) - LORazepam (ATIVAN) 1 mg tablet Take 1 tablet by mouth twice daily. As needed. - Nebulizer NEBULIZER and Supplies FOR HOME USE. DX: J45.40 - citalopram (CELEXA) 40 mg tablet Take 40 mg by mouth once daily. [facility] Problem List As Of Date 02/24/2025 Noted Resolved Asthma [J45.909] Allergic rhinitis [J30.9] Migraine without aura [G43.009] 03/29/2006 Supervision of other normal [Z34.80] 2006 12/12/2011 Supervision of other high-risk [O09.8*09/26/2006 12/12/2011 Personal history of pre-term labor [Z87.51] 11/07/2006 03/11/2018 LGSIL on Pap smear [R87. (more content not included)... Normal [facility] CNTHERAPYon 02-24-2025 CNTHERAPY OT/PT/Speech Visit (PTWS) NANCI RODRIGUEZ ([id number]) 1980 F Date Time Provider Department 02/24/25 3:45 PM NANCI COOK PTWS Date Time Provider Department Center 02/24/2025 3:45 PM [id number] COOK PTWS Yash Brigid Reason for Visit: PT Jean [717] Primary Visit Diagnosis:Chronic midline low back pain, unspecified whether sciatica present [M54.50, G89.29] Other Visit Diagnosis:Radiculopat hy of lumbar region [M54.16] Allergies As of Date: 02/24/2025 Noted Allergy Reaction PENICILLINS 08/24/2011 9 - Itching 4 - Hives MELATONIN 11/08/2016 2 - Rash 4 - Hives TRAMADOL 07/10/2013 14 - Other: See Comments Comments: tic like movements WELLBUTRIN (BUPROPION) 03/12/2019 5 - Intolerance Comments: Dry mouth--severe, intolerable Date Reviewed: 01/20/2025 Reviewed by: Sylwia Marcial LPN - Fully Assessed Prescriptions as of 02/24/2025 - HYDROcodone-acetamino phen (NORCO) 5-325 mg per tablet Take 1-2 tablets by mouth every 6 hours as needed for pain for up to 7 days. Patient should start on February 24, 2025. - cyclobenzaprine (FLEXERIL) 10 mg tablet Take 1 tablet by mouth three times a day as needed for muscle spasm. May make drowsy - dulaglutide (TRULICITY) 3 mg/0.5 mL pen injector Inject 3 mg subcutaneously one time a week. Inject dose once per week. Discard Pen After - lidocaine (LIDODERM) 5 % Apply 1 patch as directed every 24 hours. Remove after 12 hours. - mometasone-formoterol (DULERA) 50-5 mcg/actuation HFA aerosol inhaler Inhale 1 puff as instructed two times a day. Rinse mouth out after use. - CPAP Needs replacement CPAP @ 15 cm of water with humidification. Mask (per patient preference) optional chin strap (if indicated) , filters, tubing, humidifier and lifetime supplies. G47.33 MARIA TERESA on CPAP - celecoxib (CELEBREX) 400 mg capsule Take 1 capsule by mouth once daily. Take with food - Lancets Test blood sugar(s) once times daily. Dx: Type 2 DM - Controlled E11.9 Insulin: No - blood sugar diagnostic (BLOOD GLUCOSE TEST) test strip Test blood sugar(s) one time daily. Dx: Type 2 DM - Controlled E11.9 Insulin: No. Uses True Metrix test strips. - metFORMIN (GLUCOPHAGE) 500 mg tablet Take 2 tablets by mouth two times a day with meals. Take one additional 500 mg tab with breakfast or lunch until BS less than 250 - furosemide (LASIX) 40 mg tablet Take 1 tablet by mouth once daily. - SUMAtriptan (IMITREX) 25 mg tablet Take 1 tablet by mouth at onset of headache and may repeat in 2 hrs if needed. - promethazine (PHENERGAN) 12.5 mg tablet Take 1 tablet by mouth four times a day as needed for nausea/vomiting. - loratadine (CLARITIN) 10 mg tablet Take 1 tablet by mouth once daily. - dulaglutide (TRULICITY) 0.75 mg/0.5 mL pen injector Inject 0.75 mg subcutaneously one time a week. Inject dose once per week. Discard Pen After - benzonatate (TESSALON PERLE) 100 mg capsule Take 1-2 capsules by mouth three times a day as needed. - glimepiride (AMARYL) 4 mg tablet Take 1 tablet by mouth daily with breakfast. Dose change, take one daily - montelukast (SINGULAIR) 10 mg tablet Take 1 tablet by mouth daily at bedtime. - albuterol HFA (VENTOLIN HFA) 90 mcg/actuation inhaler Inhale 2 Puffs as instructed every 4 hours as needed. - ferrous sulfate 325 mg (65 mg iron) tablet Take 1 tablet by mouth every Sunday, Sunday, and Sunday. - topiramate (TOPAMAX) 100 mg tablet Take 1 tablet by mouth two times a day. - lansoprazole (PREVACID) 30 mg capsule Take 1 capsule by mouth daily before breakfast. - pramipexole (MIRAPEX) 1.5 mg tablet Take 1 tablet by mouth daily at bedtime. - QUEtiapine (SEROQUEL) 25 mg tablet Take 75 mg by mouth daily at bedtime. - lamoTRIgine (LAMICTAL) 200 mg tablet Take 1 tablet by mouth two times a day. - diphenhydrAMINE (BENADRYL) 25 mg capsule Take 1 capsule by mouth every 6 hours as needed for itching/rash. - glucose 4 gram chewable tablet Take 4 tablets by mouth as needed for low blood sugar. - Albuterol Sulfate 1.25 mg/3 mL nebulizer solution Use 1 Ampule via nebulizer every 4 hours as needed for wheezing/shortness of breath. - ARIPiprazole (ABILIFY) 5 mg tablet Take 1 tablet by mouth once daily. - [employer] FREEDOM LITE monitoring kit USE DIRECTED - CPAP Needs lifetime supplies (mask, hoses, headgear, filters, water chamber) G47.33 (already has CPAP) - LORazepam (ATIVAN) 1 mg tablet Take 1 tablet by mouth twice daily. As needed. - Nebulizer NEBULIZER and Supplies FOR HOME USE. DX: J45.40 - citalopram (CELEXA) 40 mg tablet Take 40 mg by mouth once daily. [facility] Imaging Nurse: Addendum Therapy (PT/OT/Speech/Resp) ID: [id number] 02/24/2025 4:12 PM Author: NANCI COOK Signed by NANCI COOK PT on 02/24/2025 at 4:12 PM * * * This d (more content not included)... Normal [facility] THERAPY NTon 02-24-2025 THERAPY NT HNO ID: [id number] Author: NANCI COOK PT Service: ? Author Type: Physical Therapist Type: Therapy (PT/OT/Speech/Resp) Filed: 02/24/2025 16:12 Note Text: Program_ID:[id number] Access Code: [email or web address] URL: [email or web address] Date: 02-24-2025 Prepared By: Nanci Cook Program Notes Exercises - Seated Transversus Abdominis Bracing - 2 x daily - 7 x weekly - 4 sets - 10 reps - Standing Lumbar Extension - 2 x daily - 7 x weekly - 2 sets - 10 reps - Standing Gluteal Sets - 2 x daily - 7 x weekly - 3 sets - 10 reps Normal [facility] Culture, Anaerobic Any Sourc hank 02-23-2025 CUAN GRAM STAIN RIGHT LEG ULCER Clostridium perfringens is generally SUSCEPTIBLE to Penicillin, Metronidazole, and Meropenem. It is showing increasing RESISTANCE to Clindamycin and Tetracycline. Bacteria Spec Anaerobe Cult Clostridium species other than perfringens are generally SUSCEPTIBLE to Piperacillin, Beta-lactams and Beta-lactamase inhibitors, Carbapenems, Metronidazole and Vancomycin. They are generally RESISTANT to Ampicillin, Aminoglycosides, Trimethoprim-sulfamet hoxazole, and Clindamycin. Bacteria Spec Anaerobe Cult Copy of report sent to Infection Control Printer MS#[id number] 02/23/25 1306 FER. Clostridium clostridioforme Normal [facility] Comment on above: Performed By: #### M 100.3000, M100.2000, M100.4001 #### [facility] [address] [place], [address] Wound Cultureon 02-21-2025 WC GRAM STAIN RIGHT LEG ULCER #5 Susceptibility not normally performed on this organism. Wound Culture Wound Culture Wound Culture Wound Culture Wound Culture Escherichia coli Amount Growth Very Rare Klebsiella spp. Klebsiella spp. SAUR Amount Growth Rare Staphylococcus aureus Amount Growth 2+ Corynebacterium amycolatum/xer Streptococcus agalactiae (B) Escherichia coli: REACTION Ampicillin Islt ANEUDY 4 S Corynebacterium amycolatum/xer Cefepime Islt ANEUDY <=0.12 cefTRIAXone Islt ANEUDY <=0.25 S Ciprofloxacin Islt ANEUDY <=0.06 B-Lactamase Extended Susc Islt NEG Gentamicin Islt ANEUDY <=1 S levoFLOXacin Islt ANEUDY <=0.12 S Meropenem Islt ANEUDY <=0.25 S Pip+Tazo Islt ANEUDY <=4 S TMP SMX Islt ANEUDY <=20 S Klebsiella spp.: REACTION Ampicillin Islt ANEUDY R Ampicillin+Sulbac Islt ANEUDY 4 S Cefepime Islt ANEUDY <=0.12 S cefTRIAXone Islt ANEUDY <=0.25 S Ciprofloxacin Islt ANEUDY <=0.06 B-Lactamase Extended Susc Islt NEG Gentamicin Islt ANEUDY <=1 S levoFLOXacin Islt ANEUDY <=0.12 S Meropenem Islt ANEUDY <=0.25 S Pip+Tazo Islt ANEUDY <=4 S TMP SMX Islt ANEUDY <=20 S Staphylococcus aureus: REACTION cefOXitin Susc Islt NEG Doxycycline Islt ANEUDY <=0.5 S Clindamycin Islt ANEUDY 0.25 S Clindamycin.induced Susc Islt NEG Erythromycin Islt ANEUDY <=0.25 Gentamicin Islt ANEUDY <=0.5 S Linezolid Islt ANEUDY 1 S Moxifloxacin Islt ANEUDY <=0.25 S Oxacillin Susc Islt <=0.25 S Tetracycline Islt ANEUDY <=1 S TMP SMX Islt ANEUDY <=10 S Vancomycin Islt ANEUDY <=0.5 S Streptococcus agalactiae (B): REACTION Ampicillin Islt ANEUDY <=0.25 S cefTRIAXone Islt ANEUDY <=0.12 S Clindamycin Islt ANEUDY <=0.25 S Clindamycin.induced Susc Islt NEG Linezolid Islt ANEUDY <=2 Vancomycin Islt ANEUDY 0.5 S Normal [facility] Comment on above: Performed By: #### M 100.3000, M100.1999, M100.4001 #### [facility] [address] [place], [address] Gram Stainon 02-19-2025 GRAM STAIN RIGHT LEG ULCER Gram Stain 2+ Gram positive cocci Rare White Blood Cells Normal [facility] Comment on above: Performed By: #### M 100.3000, M100.2000, M100.4001 #### [facility] [address] [place], [address] Anaerobic cultureOrdered By: Sebas Lord on 02-18-2025 Bacteria identified Anaer cx Nom (Unsp spec) Clostridium clostridioforme Abnormal [facility] Gram stainOrdered By: Krista Lord on 02-18-2025 Microscopic observation Gram stain Nom (Unsp spec) [facility] Routine wound cultureOrdered By: Sebas Lord on 02-18-2025 Microbial culture, routine Streptococcus agalactiae (B) Abnormal [facility] Microbial culture, routine Corynebacterium amycolatum/xer Abnormal [facility] CNPNon 02-10-2025 CNPN Telephone (INTWS) NANCI RODRIGUEZ ([id number]) 1980 F Date Time Provider Department 02/10/25 RODRI CHAUHAN During your visit today, we recorded the following information about you: Nuzhat Montes RN 02/10/2025 3:58 PM Signed Patient calls and states that she cannot do PT due to her back pain. Patient reports that she spoke with Dr. Colbert's office. Patient reports that they had told her to see if provider can place another MRI order to see if it is approved. Patient states that Dr. Colbert's office had told her that they are unable to place order because they have her doing pain management. Patient has appointment scheduled with pain management. Please review and advise, TAZ Chester Julia, LPN 02/11/2025 2:18 PM Signed Scheduled with PT on 02/24/25 Zunilda Jaramillo APRN.SENIOR TRAINER 02/13/2025 12:16 PM Signed Addended by: ZUNILDA JARAMILLO on: 02/13/2025 12:16 PM Modules accepted: Orders Allergies As of Date: 02/10/2025 Noted Allergy Reaction PENICILLINS 08/24/2011 9 - Itching 4 - Hives MELATONIN 11/08/2016 2 - Rash 4 - Hives TRAMADOL 07/10/2013 14 - Other: See Comments Comments: tic like movements WELLBUTRIN (BUPROPION) 03/12/2019 5 - Intolerance Comments: Dry mouth--severe, intolerable Date Reviewed: 01/20/2025 Reviewed by: Sylwia Marcial LPN - Fully Assessed Reason for Visit: Orders [681] Primary Visit Diagnosis:Chronic midline low back pain with bilateral sciatica [M54.41, M54.42, G89.29] Other Visit Diagnoses:Chronic low back pain, unspecified back pain laterality, unspecified whether sciatica present [M54.50, G89.29] Chronic radicular low back pain [M54.16, G89.29] Radiculopathy of lumbar region [M54.16] Order(s):MRI LUMBAR SPINE BRANDON BLAKE [[id number]] Order #: [id number] FUTURE Prescriptions as of 02/13/2025 - HYDROcodone-acetamino phen (NORCO) 5-325 mg per tablet Take 1-2 tablets by mouth every 6 hours as needed for pain for up to 7 days. - cyclobenzaprine (FLEXERIL) 10 mg tablet Take 1 tablet by mouth three times a day as needed for muscle spasm. May make drowsy - lidocaine (LIDODERM) 5 % Apply 1 patch as directed every 24 hours. Remove after 12 hours. - mometasone-formoterol (DULERA) 50-5 mcg/actuation HFA aerosol inhaler Inhale 1 puff as instructed two times a day. Rinse mouth out after use. - dulaglutide (TRULICITY) 3 mg/0.5 mL pen injector Inject 3 mg subcutaneously one time a week. Inject dose once per week. Discard Pen After - CPAP Needs replacement CPAP @ 15 cm of water with humidification. Mask (per patient preference) optional chin strap (if indicated) , filters, tubing, humidifier and lifetime supplies. G47.33 MARIA TERESA on CPAP - celecoxib (CELEBREX) 400 mg capsule Take 1 capsule by mouth once daily. Take with food - Lancets Test blood sugar(s) once times daily. Dx: Type 2 DM - Controlled E11.9 Insulin: No - blood sugar diagnostic (BLOOD GLUCOSE TEST) test strip Test blood sugar(s) one time daily. Dx: Type 2 DM - Controlled E11.9 Insulin: No. Uses True Metrix test strips. - metFORMIN (GLUCOPHAGE) 500 mg tablet Take 2 tablets by mouth two times a day with meals. Take one additional 500 mg tab with breakfast or lunch until BS less than 250 - furosemide (LASIX) 40 mg tablet Take 1 tablet by mouth once daily. - SUMAtriptan (IMITREX) 25 mg tablet Take 1 tablet by mouth at onset of headache and may repeat in 2 hrs if needed. - promethazine (PHENERGAN) 12.5 mg tablet Take 1 tablet by mouth four times a day as needed for nausea/vomiting. - loratadine (CLARITIN) 10 mg tablet Take 1 tablet by mouth once daily. - dulaglutide (TRULICITY) 0.75 mg/0.5 mL pen injector Inject 0.75 mg subcutaneously one time a week. Inject dose once per week. Discard Pen After - benzonatate (TESSALON PERLE) 100 mg capsule Take 1-2 capsules by mouth three times a day as needed. - glimepiride (AMARYL) 4 mg tablet Take 1 tablet by mouth daily with breakfast. Dose change, take one daily - montelukast (SINGULAIR) 10 mg tablet Take 1 tablet by mouth daily at bedtime. - albuterol HFA (VENTOLIN HFA) 90 mcg/actuation inhaler Inhale 2 Puffs as instructed every 4 hours as needed. - ferrous sulfate 325 mg (65 mg iron) tablet Take 1 tablet by mouth every Sunday, Sunday, and Sunday. - topiramate (TOPAMAX) 100 mg tablet Take 1 tablet by mouth two times a day. - lansoprazole (PREVACID) 30 mg capsule Take 1 capsule by mouth daily before breakfast. - pramipexole (MIRAPEX) 1.5 mg tablet Take 1 tablet by mouth daily at bedtime. - QUEtiapine (SEROQUEL) 25 mg tablet Take 75 mg by mouth daily at bedtime. - lamoTRIgine (LAMICTAL) 200 mg tablet Take 1 tablet by mouth two times a day. - diphenhydrAMINE (BENADRYL) 25 mg capsule Take 1 capsule by mouth every 6 hours as needed for itching/rash. - glucose 4 gram chewable tablet Take 4 tablets by mouth as needed fo (more content not included)... Normal [facility] L/S Spine Bending Flex/[place] 01-30-2025 L/S Spine Bending Flex/Ext [facility] Imaging Services [facility] [place] [address] L/S Spine Bending Flex/Ext MR#: [id number] Acct: [id number] Name: NANCI RODRIGUEZ Rep #: [id number] : 1980 F 44 From: [place] Canseco MD PCP: Dr. Rodri Chauhan MD Status: DEP [facility] Study: L/S Spine Bending Flex/Ext Date of Exam: 01/30 Exam# [id number] Ordering Dr: Sarah Robles PROCEDURE: L/S SPINE BENDING FLEX/EXT 01/30/2025 REASON FOR EXAM: PAIN TECHNIQUE: Two views, flexion-extension COMPARISON: 12/15/2024 FINDINGS: Flexion-extension views. No fracture or malalignment. No evidence of instability. L3-4 mild disc space narrowing and degenerative endplate change L4-5 moderate disc space narrowing with mild degenerative endplate changes RAD/L/S Spine Bending Flex/Ext IMPRESSION: Flexion-extension views as above. Reading Location: [id number] CC: ZEHRA Fulton; Dr. Rodri Chauhan MD Financial Services Professional: Signed Normal [facility] Orthopedic Visit Reporton Orthopedic Visit Report [facility] [address] [place] [address] OFFICE VISIT Date of Service: 01/30/25 MR#: [id number] Acct: [id number] Name: NANCI RODRIGUEZ Rep #: [id number] : 1980 Provider: ZEHRA Fulton Age/Sex: 44/F Location: [facility] [place] Status: Signed Intake Vital Signs 12/15/24 11:45 01/26/25 10:49 01/30/25 14:32 Height 5 ft 3 in 5 ft 3.5 in 5 ft 3 in Weight: 379 lb 6 oz BMI 67.1 Intake Visit Reasons: LUMBAR SPINE Chief Complaint: Chest pain Allergies amoxicillin (From Augmentin) Allergy (Intermediate, Verified 01/30/25 14:33) Hives clavulanic acid (From Augmentin) Allergy (Intermediate, Verified 01/30/25 14:33) Hives melatonin Allergy (Verified 01/30/25 14:33) Hives Penicillins Allergy (Verified 01/30/25 14:33) Hives Medications ???Medication ???Instructions ???Recorded ???Confirmed ???Type loratadine 10 mg tablet (Allergy 10 mg PO DAILY Allergies 07/07/13 01/30/25 History Relief (loratadine)) lorazepam 1 mg tablet 1 mg PO BID PRN PRN Anxiety 01/30/25 History montelukast 10 mg tablet 10 mg PO QHS 08/10/16 01/30/25 His tory sumatriptan succinate 25 mg tablet 25 mg PO .X1 PRN PRN Migraine 01/30/25 History (Imitrex) Symptoms aripiprazole 2 mg tablet 5 mg PO QHS 07/01/19 01/30/25 Hist ory citalopram 40 mg tablet 40 mg PO DAILY 07/01/19 01/30/25 H istory lamotrigine 200 mg tablet 200 mg PO BID 07/01/19 01/30/25 Hi story metformin 500 mg tablet 1,000 mg PO BID dm 07/01/19 History naproxen 500 mg tablet 500 mg PO BID PRN PRN Pain Or Feve r 07/01/19 01/30/25 History topiramate 100 mg tablet 100 mg PO BID 07/01/19 01/30/25 Hi story glimepiride 2 mg tablet 4 mg PO DAILY 11/08/19 01/30/25 Hi story lansoprazole 30 mg capsule,delayed 30 mg PO DAILY #30 CAPSULES 12/1601/30/25 Rx release albuterol sulfate 90 mcg/actuation 2 puff inhalation Q4H PRN PRN 01/30/25 Rx aerosol inhaler (Ventolin HFA) Wheezing ##1 ferrous sulfate 325 mg (65 mg 325 mg PO TID #90 tabs 09/07/22 Rx iron) tablet (FeroSul) furosemide 20 mg tablet 20 mg PO BID 09/07/22 01/30/25 His tory cyclobenzaprine 10 mg tablet 10 mg PO TID PRN Muscle Spasm #20 12/09/22 01/30/25 Rx TABLETS pramipexole 1.5 mg tablet (Mirapex) 1.5 mg PO QHS 09/25/23 01/30/25 History ascorbic acid (vitamin C) 1,000 mg 1 g PO DAILY 90 days #90 tabs 01/30/25 Rx tablet (Vitamin C) calcium 500 mg (as 1 tab PO DAILY 90 days #90 tabs 01/30/25 Rx carbonate)-vitamin D3 15 mcg (600 unit) tablet (Os-Wilfredo 500 + D3) cyclobenzaprine 10 mg tablet 10 mg PO TID 7 days #21 tabs 09/2801/30/25 Rx docusate sodium 100 mg capsule 100 mg PO DAILY 10 days #10 caps 0 09/28/23 01/30/25 Rx (Colace) acetaminophen 500 mg tablet 1,000 mg (2 x 500 mg) PO Q6H PRN 0 03/09/24 01/30/25 Rx (Tylenol Extra Strength) pain 7 days #56 tabs benztropine 1 mg tablet 1 mg PO BID PRN PRN legs 03/09/24 01/30/25 History quetiapine 25 mg tablet (Seroquel) 25 mg PO DAILY 04/09/24 01/30/25 History sulfamethoxazole 800 1 tab PO BID 2 weeks #28 tabs 10/0 06/1001/30/25 Rx mg-trimethoprim 160 mg tablet (Bactrim DS) amoxicillin 875 mg-potassium 1 tab PO BID 2 weeks #28 tabs 10/1 03/1001/30/25 Rx clavulanate 125 mg tablet gentamicin 0.1 % topical ointment 1 applic topical TID #30 grams 01/30/25 Rx cephalexin 500 mg capsule 500 mg PO Q6 #20 CAPSULES 07/17/24 01/30/25 Rx hydrocodone-acetamino phen 5-325mg 1 tab PO Q6H PRN PRN Pain 3 days 12/15/24 01/30/25 Rx 5mg-325mg #10 TABLETS PFSH Medical History Open wound History of steroid therapy Diabetes Easy bruising Restless legs Migraine headache Wears glasses Cracked tooth Difficulty chewing GERD (gastroesophageal reflux disease) Electronic cigarette use CPAP (continuous positive airway pressure) dependence Shortness of breath on exertion History of stress test Anxiety Sleep apnea COPD (chronic obstructive pulmonary disease) Asthma Obesity Diabetes Bipolar 1 disorder Surgical History History of cardiac catheterization History of umbilical hernia repair ( 2016) History of herniorrhaphy Social History household members: none Smoking Status: Current every day smoker tobacco type: cigarettes Tobacco: How many years used: 20 how long ago did patient quit smokin months substance use type: does not use HPI LUMBAR SPINE Details: This documentation accurately reflects the service provided and the decisions made by me, ZEHRA Fulton 01/30/25 1425. Part of (more content not included)... [facility] 01-29-2025 CNPN Telephone (INTMWS) NANCI RODRIGUEZ ([id number]) 1980 F Date Time Provider Department 01/29/25 JOHNSON RM INTMWS During your visit today, we recorded the following information about you: Johnson Rm APRN.SENIOR SHAREPOINT ARCHITECT 01/29/2025 12:40 PM Signed Check to see if she has completed home exercises, completed physical therapy or made an appointment with the independent living specialist. For her insurance to cover her she will need to have completed home exercise program for PT for 6 weeks or longer Ashley Jarrett RN 01/29/2025 2:01 PM Signed Pt called and is notified of providers message. Pt voices understanding. She states she has been doing home exercises. She states her awning erector has her set up with those, but they are seated since she is hardly able to get up and walk. She reports her first PT appointment is 02/10/25. Pt is seeing the independent living specialist tomorrow 01/30/25. TAZ Suarez Terri, MARIJA.SENIOR SHAREPOINT ARCHITECT 01/29/2025 2:26 PM Signed Noted. Any back exercises prescribed by PT or provider for 6 weeks or more, not general exercises provided by nutrition services manager? If not recommend this. After 6 weeks of HEP or PT should be able to get MRI she is interested in getting. occupational medicine specialist may order imaging, recommend she follow recommendations from specialist at her appt tomorrow. Ashley Jarrett RN 01/29/2025 2:43 PM Signed Pt called and is notified of providers message and instructions. Pt voices understanding and said she would talk with the independent living specialist tomorrow. Ashley Jarrett RN Allergies As of Date: 01/29/2025 Noted Allergy Reaction PENICILLINS 08/24/2011 9 - Itching 4 - Hives MELATONIN 11/08/2016 2 - Rash 4 - Hives TRAMADOL 07/10/2013 14 - Other: See Comments Comments: tic like movements WELLBUTRIN (BUPROPION) 03/12/2019 5 - Intolerance Comments: Dry mouth--severe, intolerable Date Reviewed: 01/20/2025 Reviewed by: Sylwia Marcial LPN - Fully Assessed Reason for Visit: Recheck [92] Prescriptions as of 01/29/2025 - HYDROcodone-acetamino phen (NORCO) 5-325 mg per tablet Take 1-2 tablets by mouth every 6 hours as needed for pain for up to 7 days. - cyclobenzaprine (FLEXERIL) 10 mg tablet Take 1 tablet by mouth three times a day as needed for muscle spasm. May make drowsy - lidocaine (LIDODERM) 5 % Apply 1 patch as directed every 24 hours. Remove after 12 hours. - mometasone-formoterol (DULERA) 50-5 mcg/actuation HFA aerosol inhaler Inhale 1 puff as instructed two times a day. Rinse mouth out after use. - dulaglutide (TRULICITY) 3 mg/0.5 mL pen injector Inject 3 mg subcutaneously one time a week. Inject dose once per week. Discard Pen After - CPAP Needs replacement CPAP @ 15 cm of water with humidification. Mask (per patient preference) optional chin strap (if indicated) , filters, tubing, humidifier and lifetime supplies. G47.33 MARIA TERESA on CPAP - celecoxib (CELEBREX) 400 mg capsule Take 1 capsule by mouth once daily. Take with food - Lancets Test blood sugar(s) once times daily. Dx: Type 2 DM - Controlled E11.9 Insulin: No - blood sugar diagnostic (BLOOD GLUCOSE TEST) test strip Test blood sugar(s) one time daily. Dx: Type 2 DM - Controlled E11.9 Insulin: No. Uses True Metrix test strips. - metFORMIN (GLUCOPHAGE) 500 mg tablet Take 2 tablets by mouth two times a day with meals. Take one additional 500 mg tab with breakfast or lunch until BS less than 250 - furosemide (LASIX) 40 mg tablet Take 1 tablet by mouth once daily. - SUMAtriptan (IMITREX) 25 mg tablet Take 1 tablet by mouth at onset of headache and may repeat in 2 hrs if needed. - promethazine (PHENERGAN) 12.5 mg tablet Take 1 tablet by mouth four times a day as needed for nausea/vomiting. - loratadine (CLARITIN) 10 mg tablet Take 1 tablet by mouth once daily. - dulaglutide (TRULICITY) 0.75 mg/0.5 mL pen injector Inject 0.75 mg subcutaneously one time a week. Inject dose once per week. Discard Pen After - benzonatate (TESSALON PERLE) 100 mg capsule Take 1-2 capsules by mouth three times a day as needed. - glimepiride (AMARYL) 4 mg tablet Take 1 tablet by mouth daily with breakfast. Dose change, take one daily - montelukast (SINGULAIR) 10 mg tablet Take 1 tablet by mouth daily at bedtime. - albuterol HFA (VENTOLIN HFA) 90 mcg/actuation inhaler Inhale 2 Puffs as instructed every 4 hours as needed. - ferrous sulfate 325 mg (65 mg iron) tablet Take 1 tablet by mouth every Sunday, Sunday, and Sunday. - topiramate (TOPAMAX) 100 mg tablet Take 1 tablet by mouth two times a day. - lansoprazole (PREVACID) 30 mg capsule Take 1 capsule by mouth daily before breakfast. - pramipexole (MIRAPEX) 1.5 mg tablet Take 1 tablet by mouth daily at bedtime. - QUEtiapine (SEROQUEL) 25 mg tablet Take 75 mg by mouth daily at bedtime. - lamoTRIgine (LAMICTAL) 200 mg tablet Take 1 tablet by mouth two times a day. - (more content not included)... Normal [facility] CBC W Auto Differential pane l (Bld)on 01-20-2025 Basophils (Bld) [#/Vol] 10*3/uL Normal <0.11 C [facility] Comment on above: Order Comment: Speci men Type: BLOOD SPECIMENOrdering Facility: [facility] Address: [address] [place] [address] [place] [address] Performed By: #### 5 6820-8 ####[facility] LABCLIA [id number] [facility] [address], [place] [address] [place] Basophils/100 WBC (Bld) 0.5 % Normal [facility] Comment on above: Order Comment: Speci men Type: BLOOD SPECIMENOrdering Facility: [facility] Address: [address] [place] [address] Performed By: #### 5 7021-8 ####[facility] LABCLIA [id number] [facility] [address], [place] [address] [place] Differential cell count method Nom (Bld) Auto Normal [facility] Comment on above: Order Comment: Speci men Type: BLOOD SPECIMENOrdering Facility: [facility] Address: [address] [place] [address] Performed By: #### 5 7021-8 ####[facility] LABCLIA [id number] [facility] [address], [place] [address] [place] Eosinophils (Bld) [#/Vol] 0.09 10*3/uL Normal <0.46 [facility] Comment on above: Order Comment: Speci men Type: BLOOD SPECIMENOrdering Facility: [facility] Address: [address] [place] [address] Performed By: #### 5 7021-8 ####[facility] LABCLIA [id number] [address] [place] Eosinophils/100 WBC (Bld) 2.1 % Normal [facility] Comment on above: Order Comment: Speci men Type: BLOOD SPECIMENOrdering Facility: [facility] Address: [address] [place] [address] Performed By: #### 5 7021-8 ####[facility] LABCLIA [id number] [facility] [address], [place] [address] [place] Erythrocyte distribution width (RBC) [Ratio] 17.8 % High 11.5-15.0 [facility] Comment on above: Order Comment: Speci men Type: BLOOD SPECIMENOrdering Facility: [facility] Address: [address] [place] [address] Performed By: #### 5 7021-8 ####[facility] LABIA [id number] [place] [address] [place] Hematocrit (Bld) [Volume fraction] 41.4 % Normal 36.0-46.0 [facility] Comment on above: Order Comment: Speci men Type: BLOOD SPECIMENOrdering Facility: [facility] Address: [address] [place] [address] Performed By: #### 5 7021-8 ####[facility] LABIA [id number] [place] [address] [place] Hemoglobin (Bld) [Mass/Vol] 12.6 g/dL Normal 11.5-15.5 [facility] Comment on above: Order Comment: Speci men Type: BLOOD SPECIMENOrdering Facility: [facility] Address: [address] [place] [address] Performed By: #### 5 7021-8 ####[facility] LABIA [id number] [place] [address] [place] Immature granulocytes (Bld) [#/Vol] 10*3/uL Normal <0.10 [facility] Comment on above: Order Comment: Speci men Type: BLOOD SPECIMENOrdering Facility: [facility] Address: [address] [place] [address] Performed By: #### 5 7021-8 ####[facility] LABIA [id number] [place] [address] [place] Immature granulocytes/100 WBC (Bld) 0.2 % Normal [facility] Comment on above: Order Comment: Speci men Type: BLOOD SPECIMENOrdering Facility: [facility] Address: [address] [place] [address] Performed By: #### 5 7021-8 ####[facility] LABCLIA [id number] [place] [address] [place] Lymphocytes (Bld) [#/Vol] 1.10 10*3/uL Normal 1.00-4.00 [facility] Comment on above: Order Comment: Speci men Type: BLOOD SPECIMENOrdering Facility: [facility] Address: [address] [place] [address] Performed By: #### 5 7021-8 ####[facility] LABIA [id number] [place] [address] [place] Lymphocytes/100 WBC (Bld) 25.8 % Normal [facility] Comment on above: Order Comment: Speci men Type: BLOOD SPECIMENOrdering Facility: [facility] Address: [address] [place] [address] Performed By: #### 5 7021-8 ####[facility] LABIA [id number] [place] [address] [place] MCH (RBC) [Entitic mass] 25.0 pg Low 26.0-34.0 [facility] Comment on above: Order Comment: Speci men Type: BLOOD SPECIMENOrdering Facility: [facility] Address: [address] [place] [address] Performed By: #### 5 7021-8 ####[facility] LABIA [id number] [place] [address] [place] MCHC (RBC) [Mass/Vol] 30.4 g/dL Low 30.5-36.0 [facility] Comment on above: Order Comment: Speci men Type: BLOOD SPECIMENOrdering Facility: [facility] Address: [address] [place] [address] Performed By: #### 5 7021-8 ####[facility] LABIA [id number] [place] [address] [place] MCV (RBC) [Entitic vol] 82.3 fL Normal 80.0-100.0 [facility] [facility] Comment on above: Order Comment: Speci men Type: BLOOD SPECIMENOrdering Facility: [facility] Address: [address] [place] [address] Performed By: #### 5 7021-8 ####[facility] LABCLIA [id number] [address] [address] [place] Monocytes (Bld) [#/Vol] 0.25 10*3/uL Normal <0.87 [facility] Comment on above: Order Comment: Speci men Type: BLOOD SPECIMENOrdering Facility: [facility] Address: [address] [place] [address] Performed By: #### 5 7021-8 ####[facility] LABCLIA [id number] [place] [address] [place] Monocytes/100 WBC (Bld) 5.9 % Normal C [facility] Comment on above: Order Comment: Speci men Type: BLOOD SPECIMENOrdering Facility: [facility] Address: [address] [place] [address] Performed By: #### 5 7021-8 ####[facility] LABCLIA [id number] [place] [id number] [place] Neutrophils (Bld) [#/Vol] 2.79 10*3/uL Normal 1.45-7.50 [facility] Comment on above: Order Comment: Speci men Type: BLOOD SPECIMENOrdering Facility: [facility] Address: [address] [place] [address] Performed By: #### 5 7021-8 ####[facility] LABCLIA [id number] [place] [id number] [place] Neutrophils/100 WBC (Bld) 65.5 % Normal [facility] Comment on above: Order Comment: Speci men Type: BLOOD SPECIMENOrdering Facility: [facility] Address: [address] [place] [address] Performed By: #### 5 7021-8 ####[facility] LABCLIA [id number] [address] [address] [place] Nucleated RBC (Bld) [#/Vol] 10*3/uL Normal <0.01 [facility] Comment on above: Order Comment: Speci men Type: BLOOD SPECIMENOrdering Facility: [facility] Address: [address] [place] [address] Performed By: #### 5 7021-8 ####[facility] LABIA [id number] [place] [address] [place] Nucleated RBC/100 WBC (Bld) [Ratio] 0.0 /100 WBC Normal [facility] Comment on above: Order Comment: Speci men Type: BLOOD SPECIMENOrdering Facility: [facility] Address: [address] [place] [address] Performed By: #### 5 7021-8 ####[facility] LABIA [id number] [place] [address] [place] Platelet mean volume (Bld) [Entitic vol] 11.5 fL Normal 9.0-12.7 [facility] Comment on above: Order Comment: Speci men Type: BLOOD SPECIMENOrdering Facility: [facility] Address: [address] [place] [address] Performed By: #### 5 7021-8 ####[facility] LABIA [id number] [place] [address] [place] Platelets (Bld) [#/Vol] 92 10*3/uL Low 150-400 C [facility] Comment on above: Order Comment: Speci men Type: BLOOD SPECIMENOrdering Facility: [facility] Address: [address] [place] [address] Performed By: #### 5 7021-8 ####[facility] LABIA [id number] [place] [id number] [place] RBC (Bld) [#/Vol] 5.03 10*6/uL Normal 3.90-5.20 [facility] Comment on above: Order Comment: Speci men Type: BLOOD SPECIMENOrdering Facility: [facility] Address: [address] [place] [address] Performed By: #### 5 7021-8 ####[facility] LABIA [id number] [place] [address] [place] WBC (Bld) [#/Vol] 4.26 10*3/uL Normal 3.70-11.00 [facility] Comment on above: Order Comment: Speci men Type: BLOOD SPECIMENOrdering Facility: [facility] Address: [address] [place] [address] Performed By: #### 5 7021-8 ####[facility] [id number] [place] [address] [place] CITRATED PLATELET COUNTon CITRATED PLATELET COUNT (WAM) Normal [facility] Comment on above: Order Comment: Speci men Type: BLOOD SPECIMENOrdering Facility: [facility] Address: [address] [place] [address] Result Comment: Plat elet count confirmed by manual review of peripheral blood smear. No clot detected.Platelets Clumped Estimate Low. Performed By: #### C ITPLT ####[facility] [id number] [place] [address] [place] CNOVon 01-20-2025 CNOV Office Visit (INTMWS ) NANCI RODRIGUEZ ([id number]) 1980 F Date Time Provider Department 01/20/25 3:40 PM ELLA, ZUNILDA INTIRIS During your visit today, we recorded the following information about you: Pulse Blood pressure Weight 98/minute 128/74 170.4 kg Zunilda Jaramillo APRN.SENIOR TRAINER 01/20/2025 4:03 PM Signed SUBJECTIVE Nanci Rodriguez is a 44 year old female here today for a check up on her medical problems. Chief Complaint Patient presents with: Review Of CPAP Titration: Patient states she does have her CPAP and it is working very well for her. She is getting more sleep. Is requesting a script for a walker HPI Nanci Rodriguez is a 44 year old female. She is an established patient of Rodri Chauhan MD. She presents today for follow up. She continues using her CPAP, sleeping better and doing well. Benefits from this. Would like a rolator to help with being more mobile around the house and outside of the home. Mobility is very limited right now. Back pain is an issue. MRI denied. Consult to spine provider, needs to schedule. Trying to quit smoking. Her medications were reviewed today and her list is now up to date. Medications Current Outpatient Medications Medication Sig cyclobenzaprine (FLEXERIL) 10 mg tablet Take 1 tablet by mouth three times a day as needed for muscle spasm. May make drowsy dulaglutide (TRULICITY) 3 mg/0.5 mL pen injector Inject 3 mg subcutaneously one time a week. Inject dose once per week. Discard Pen After celecoxib (CELEBREX) 400 mg capsule Take 1 capsule by mouth once daily. Take with food metFORMIN (GLUCOPHAGE) 500 mg tablet Take 2 tablets by mouth two times a day with meals. Take one additional 500 mg tab with breakfast or lunch until BS less than 250 furosemide (LASIX) 40 mg tablet Take 1 tablet by mouth once daily. SUMAtriptan (IMITREX) 25 mg tablet Take 1 tablet by mouth at onset of headache and may repeat in 2 hrs if needed. promethazine (PHENERGAN) 12.5 mg tablet Take 1 tablet by mouth four times a day as needed for nausea/vomiting. loratadine (CLARITIN) 10 mg tablet Take 1 tablet by mouth once daily. glimepiride (AMARYL) 4 mg tablet Take 1 tablet by mouth daily with breakfast. Dose change, take one daily montelukast (SINGULAIR) 10 mg tablet Take 1 tablet by mouth daily at bedtime. albuterol HFA (VENTOLIN HFA) 90 mcg/actuation inhaler Inhale 2 Puffs as instructed every 4 hours as needed. ferrous sulfate 325 mg (65 mg iron) tablet Take 1 tablet by mouth every Sunday, Sunday, and Sunday. topiramate (TOPAMAX) 100 mg tablet Take 1 tablet by mouth two times a day. lansoprazole (PREVACID) 30 mg capsule Take 1 capsule by mouth daily before breakfast. pramipexole (MIRAPEX) 1.5 mg tablet Take 1 tablet by mouth daily at bedtime. QUEtiapine (SEROQUEL) 25 mg tablet Take 75 mg by mouth daily at bedtime. lamoTRIgine (LAMICTAL) 200 mg tablet Take 1 tablet by mouth two times a day. diphenhydrAMINE (BENADRYL) 25 mg capsule Take 1 capsule by mouth every 6 hours as needed for itching/rash. glucose 4 gram chewable tablet Take 4 tablets by mouth as needed for low blood sugar. Albuterol Sulfate 1.25 mg/3 mL nebulizer solution Use 1 Ampule via nebulizer every 4 hours as needed for wheezing/shortness of breath. ARIPiprazole (ABILIFY) 5 mg tablet Take 1 tablet by mouth once daily. LORazepam (ATIVAN) 1 mg tablet Take 1 tablet by mouth twice daily. As needed. citalopram (CELEXA) 40 mg tablet Take 40 mg by mouth once daily. [facility] lidocaine (LIDODERM) 5 % Apply 1 patch as directed every 24 hours. Remove after 12 hours. HYDROcodone-acetamino phen (NORCO) 5-325 mg per tablet Take 1-2 tablets by mouth every 6 hours as needed for pain for up to 7 days. mometasone-formoterol (DULERA) 50-5 mcg/actuation HFA aerosol inhaler Inhale 1 puff as instructed two times a day. Rinse mouth out after use. CPAP Needs replacement CPAP @ 15 cm of water with humidification. Mask (per patient preference) optional chin strap (if indicated) , filters, tubing, humidifier and lifetime supplies. G47.33 MARIA TERESA on CPAP Lancets Test blood sugar(s) once times daily. Dx: Type 2 DM - Controlled E11.9 Insulin: No blood sugar diagnostic (BLOOD GLUCOSE TEST) test strip Test blood sugar(s) one time daily. Dx: Type 2 DM - Controlled E11.9 Insulin: No. Uses True Metrix test strips. dulaglutide (TRULICITY) 0.75 mg/0.5 mL pen injector Inject 0.75 mg subcutaneously one time a week. Inject dose once per week. Discard Pen After (Patient not taking: Reported on 01/20/2025) benzonatate (TESSALON PERLE) 100 mg capsule Take 1-2 capsules by mouth three times a day as needed. silver sulfADIAZINE (SILVADENE) 1 % cream Apply 1 application to affected area once daily. (Patient not taking: Reported on 12/12/2024) Codeanywhere LITE monitoring kit USE DIRECTED CPAP Needs lifetime sup (more content not included)... Normal [facility] Comprehensive metabolic 2000 panelon 01-20-2025 Albumin [Mass/Vol] 3.9 g/dL Normal 3.9-4.9 [facility] Comment on above: Order Comment: Speci men Type: BLOOD SPECIMENOrdering Facility: [facility] Address: [address] [place] [address] Performed By: #### 2 4323-8, LIPNF, 95553-6, 6-4 ####[facility] LABIA [id number] [place] [address] [place] ALP [Catalytic activity/Vol] 121 U/L Normal 34-123 [facility] Comment on above: Order Comment: Speci men Type: BLOOD SPECIMENOrdering Facility: [facility] Address: [address] [place] [address] Performed By: #### 2 4323-8, LIPNF, 43951-0, 2276-4 ####[facility] LABIA [id number] [place] [address] [place] ALT [Catalytic activity/Vol] 25 U/L Normal 7-38 [facility] Comment on above: Order Comment: Speci men Type: BLOOD SPECIMENOrdering Facility: [facility] Address: [address] [place] [address] Performed By: #### 2 4323-8, LIPNF, 95597-2, 2275-4 ####[facility] LABCLIA [id number] [place] [address] [place] Anion gap [Moles/Vol] 9 mmol/L Normal 8-15 [facility] Comment on above: Order Comment: Speci men Type: BLOOD SPECIMENOrdering Facility: [facility] Address: [address] [place] [address] Performed By: #### 2 4323-8, LIPNF, 39356-7, 2275-4 ####[facility] LABCLIA [id number] [place] [address] [place] AST [Catalytic activity/Vol] 28 U/L Normal 13-35 [facility] Comment on above: Order Comment: Speci men Type: BLOOD SPECIMENOrdering Facility: [facility] Address: [address] [place] [address] Performed By: #### 2 4323-8, LIPNF, 29539-4, 2275-4 ####[facility] LABCLIA [id number] [place] [address] [place] Bilirubin [Mass/Vol] 0.6 mg/dL Normal 0.2-1.3 [facility] Comment on above: Order Comment: Speci men Type: BLOOD SPECIMENOrdering Facility: [facility] Address: [address] [place] [address] Performed By: #### 2 4323-8, LIPNF, 61590-2, 2275-4 ####[facility] LABCLIA [id number] [place] [id number] [place] Calcium [Mass/Vol] 9.4 mg/dL Normal 8.5-10.2 [facility] Comment on above: Order Comment: Speci men Type: BLOOD SPECIMENOrdering Facility: [facility] Address: [address] [place] [address] Performed By: #### 2 4323-8, LIPNF, 52247-0, 6-4 ####[facility] LABCLIA [id number] [address] [address] [place] Chloride [Moles/Vol] 101 mmol/L Normal 98-107 [facility] Comment on above: Order Comment: Speci men Type: BLOOD SPECIMENOrdering Facility: [facility] Address: [address] [place] [address] Performed By: #### 2 4323-8, LIPNF, 66683-3, 6-4 ####[facility] LABIA [id number] [place] [address] [place] CO2 [Moles/Vol] 27 mmol/L Normal 22-30 [facility] Comment on above: Order Comment: Speci men Type: BLOOD SPECIMENOrdering Facility: [facility] Address: [address] [place] [address] Performed By: #### 2 4323-8, LIPNF, 82743-1, 6-4 ####[facility] LABIA [id number] [place] [address] [place] Creatinine [Mass/Vol] 0.59 mg/dL Normal 0.58-0.96 [facility] Comment on above: Order Comment: Speci men Type: BLOOD SPECIMENOrdering Facility: [facility] Address: [address] [place] [address] Performed By: #### 2 4323-8, LIPNF, 27165-1, 2275-4 ####[facility] LABIA [id number] [place] [id number] [place] Creatinine and Glomerular filtration rate.predicted panel (S/P/Bld) 115 mL/min/1.73m??? Normal >=60 [facility] Comment on above: Order Comment: Speci men Type: BLOOD SPECIMENOrdering Facility: [facility] Address: [address] [place] [address] Result Comment: Angela mated Glomerular Filtration Rate (eGFR) is calculated using the 2020 CKD-EPI creatinine equation. This equation utilizes serum creatinine, sex, and age as parameters. The creatinine assay has traceable calibration to isotope dilution-mass spectrometry. Refer to KDIGO guidelines for clinical interpretation. In patients with unstable renal function, e.g. those with acute kidney injury, the eGFR may not accurately reflect actual GFR. Performed By: #### 2 4323-8, LIPNF, 48505-5, 2275-4 ####[facility] LABCLIA [id number] [address] [address] [place] Glucose [Mass/Vol] 151 mg/dL High 74-99 [facility] Comment on above: Order Comment: Specsteven banda Type: BLOOD SPECIMENOrdering Facility: [facility] Address: [address] [place] [address] Result Comment: The [place] Diabetes Association (ADA) provides guidance for cutoff values for fasting glucose and random glucose. The ADA defines fasting as no caloric intake for at least 8 hours. Fasting plasma glucose results between 100 to 125 mg/dL indicate increased risk for diabetes (prediabetes). Fasting plasma glucose results greater than or equal to 126 mg/dL meet the criteria for diagnosis of diabetes. In the absence of unequivocal hyperglycemia, results should be confirmed by repeat testing. In a patient with classic symptoms of hyperglycemia or hyperglycemic crisis, random plasma glucose results greater than or equal to 200 mg/dL meet the criteria for diagnosis of diabetes. Reference: Standards of Medical Care in Diabetes 2016, [place] Diabetes Association. Diabetes Care. 2016.39(Suppl 1). Performed By: #### 2 4323-8, LIPNF, 61387-3, 2275-12 ####[facility] LABCLIA [id number] [address] [address] [place] Potassium [Moles/Vol] 4.0 mmol/L Normal 3.7-5.1 [facility] Comment on above: Order Comment: Mitzi banda Type: BLOOD SPECIMENOrdering Facility: [facility] Address: [address] [place] [address] Performed By: #### 2 4323-8, LIPNF, 57311-9, 2275-4 ####[facility] [id number] [address] [address] [place] Protein [Mass/Vol] 7.7 g/dL Normal 6.3-8.0 [facility] Comment on above: Order Comment: Speci men Type: BLOOD SPECIMENOrdering Facility: [facility] Address: [address] [place] [address] Performed By: #### 2 4323-8, LIPNF, 79364-7, 2275-4 ####[facility] [id number] [address] [address] [place] Sodium [Moles/Vol] 137 mmol/L Normal 136-144 [facility] Comment on above: Order Comment: Speci men Type: BLOOD SPECIMENOrdering Facility: [facility] Address: [address] [place] [address] Performed By: #### 2 4323-8, LIPNF, 88356-5, 2275-12 ####[facility] [id number] [address] [address] [place] Urea nitrogen [Mass/Vol] 14 mg/dL Normal 7-21 [facility] Comment on above: Order Comment: Speci men Type: BLOOD SPECIMENOrdering Facility: [facility] Address: [address] [place] [address] Performed By: #### 2 4323-8, LIPNF, 75228-8, 4 ####[facility] LABIA [id number] [address] [address] [place] Ferritin SerPl-mCncon 2024 Ferritin [Mass/Vol] 18.7 ng/mL Normal 14.7-205.1 [facility] Comment on above: Order Comment: Speci men Type: BLOOD SPECIMENOrdering Facility: [facility] Address: [address] [place], [place] [address] Performed By: #### 2 4323-8, LIPNF, 46047-1, 2275-4 ####[facility] LABCLIA [id number] [place] [address] [place] HbA1c (Bld)on 01-20-2025 Average glucose Estimated from glycated hemoglobin (Bld) [Mass/Vol] 206 mg/dL Normal [facility] Comment on above: Order Comment: Mitzi banda Type: BLOOD SPECIMENOrdering Facility: [facility] Address: [address] [place] [address] Result Comment: eAG: (Estimated average glucose) is a calculated value from HgbA1c and is community representative of the average blood glucose level in the last 2-3 month period. Performed By: #### 5 5454-3 ####[facility] LABIA [id number] [address] [place] OF [facility] HbA1c (Bld) [Mass fraction] 8.8 % High 4.3-5.6 [facility] Comment on above: Order Comment: Mitzi banda Type: BLOOD SPECIMENOrdering Facility: [facility] Address: [address] [place] [address] Result Comment: Amer ican Diabetes Association guidelines indicate that patients with HgbA1c in the range 5.7-6.4% are at increased risk for development of diabetes, and intervention by lifestyle modification may be beneficial. HgbA1c greater or equal to 6.5% is considered diagnostic of diabetes. Performed By: #### 5 5454-3 ####[facility] LABCLIA [id number] [address] [place] [employer] binding capaci ty panelon 01-20-2025 Iron [Mass/Vol] 35 ug/dL Low 41-186 [facility] Comment on above: Order Comment: Mitzi banda Type: BLOOD SPECIMENOrdering Facility: [facility] Address: [address] [place] [address] Performed By: #### 2 4323-8, LIPNF, 38849-2, 2275-4 ####[facility] LABCLIA [id number] [address] [address] [place] Iron binding capacity [Mass/Vol] 357 ug/dL Normal 232-386 [facility] Comment on above: Order Comment: Speci men Type: BLOOD SPECIMENOrdering Facility: [facility] Address: [address] [place] [address] Performed By: #### 2 4323-8, LIPNF, 44311-5, 6-4 ####[facility] LABCLIA [id number] [place] [id number] [place] Iron/TIBC [Molar ratio] 9.8 % Low 15.0-57.0 C [facility] Comment on above: Order Comment: Speci men Type: BLOOD SPECIMENOrdering Facility: [facility] Address: [address] [place] [address] Performed By: #### 2 4323-8, LIPNF, 96032-7, 2275-4 ####[facility] LABCLIA [id number] [place] [id number] [place] LIPID PANEL, NONFASTINGon Cholesterol [Mass/Vol] 140 mg/dL Normal <200 [facility] Comment on above: Order Comment: Speci men Type: BLOOD SPECIMENOrdering Facility: [facility] Address: [address] [place] [address] Result Comment: <200 mg/dL, Desirable 200-239 mg/dL, Borderline high >239 mg/dL, High Performed By: #### 2 4323-8, LIPNF, 04319-3, 6-4 ####[facility] LABCLIA [id number] [address] [address] [place] HDL CHOLESTEROL, NF 55 mg/dL Normal >39 [facility] Comment on above: Order Comment: Speci men Type: BLOOD SPECIMENOrdering Facility: [facility] Address: [address] [place] [address] Result Comment: 40-5 9 mg/dL, Acceptable >59 mg/dL, High: Negative risk factor for coronary heart disease <40 mg/dL, Low: Positive risk factor for coronary heart disease Performed By: #### 2 4323-8, LIPNF, 04492-6, 2275-12 ####[facility] LABCLIA [id number] [address] [address] [facility] LDL CHOLESTEROL CALCULATED, NF 73 mg/dL Normal <100 [facility] Comment on above: Order Comment: Speci men Type: BLOOD SPECIMENOrdering Facility: [facility] Address: [address] [place] [address] Result Comment: <100 mg/dL, Optimal 100-129 mg/dL, Near optimal/above optimal 130-159 mg/dL, Borderline high 160-189 mg/dL, High >189 mg/dL, Very high Secondary prevention optimal LDL Cholesterol levels are recommended to be <70 mg/dL LDL cholesterol is calculated using the Gaytan-NIH equation. Performed By: #### 2 4323-8, LIPNF, 98390-1, 2275-12 ####[facility] LABIA [id number] [address] LDL/HDL RATIO, NF 1.33 mg/dL Normal <2.54 [place] Comment on above: Order Comment: Makenziesteven banda Type: BLOOD SPECIMENOrdering Facility: [facility] Address: [address] [place] [address] Result Comment: Refe rence: 1. National Cholesterol Education Program ATP III Guideline At-A-Glance Quick Desk Reference: National Heart, Lung, and Blood [place]. National Institutes of Health. 2001: NIH Publication No. 01-3305. 2. An International Atherosclerosis Society position paper: global recommendations for the management of dyslipidemia: executive summary, Atherosclerosis. 2014: 232(2):410-413. Performed By: #### 2 4323-8, LIPNF, 08177-3, 2275-12 ####[facility] LABCLIA [id number] [address] [address] [place] NON HDL CHOL, NF 85 mg/dL Normal <130 [facility] Comment on above: Order Comment: Speci men Type: BLOOD SPECIMENOrdering Facility: [facility] Address: [address] [place] [address] Result Comment: <130 mg/dL, Optimal 130-159 mg/dL, Near optimal/above optimal 160-189 mg/dL, Borderline high 190-219 mg/dL, High >219 mg/dL, Very high Secondary prevention optimal non HDL Cholesterol levels are recommended to be <100 mg/dL Performed By: #### 2 4323-8, LIPNF, 35306-3, 6-4 ####[facility] LABCLIA [id number] [address] [address] [place] T CHOL/HDL RATIO NF 2.55 mg/dL Normal <5.10 [facility] Comment on above: Order Comment: Speci men Type: BLOOD SPECIMENOrdering Facility: [facility] Address: [address] [place] [address] Performed By: #### 2 4323-8, LIPNF, 81739-0, 2275-4 ####[facility] LABCLIA [id number] [place] [id number] [place] TRIGLYCERIDES, NF 53 mg/dL Normal <150 [place] Comment on above: Order Comment: Speci men Type: BLOOD SPECIMENOrdering Facility: [facility] Address: [address] [place] [address] Result Comment: <150 mg/dL, Normal 150-199 mg/dL, Borderline high 200-499 mg/dL, High >499 mg/dL, Very high Performed By: #### 2 4323-8, LIPNF, 56835-7, 2275-4 ####[facility] LABCLIA [id number] [address] [address] [place] VLDL CHOLESTEROL, NF 8 mg/dL Normal <30 [facility] Comment on above: Order Comment: Speci men Type: BLOOD SPECIMENOrdering Facility: [facility] Address: [address] [place] [address] Performed By: #### 2 4323-8, LIPNF, 31616-5, 2276-4 ####[facility] LABCLIA [id number] [address] [place] Vit B12 SerPl-mCncon 06- 025 Cobalamin (Vitamin B12) [Mass/Vol] 469 pg/mL Normal 232-1245 [facility] Comment on above: Order Comment: Speci men Type: BLOOD SPECIMENOrdering Facility: [facility] Address: [address] [place] [address] Performed By: #### 2 132-9 ####[facility] LABCLIA [id number] [address] [place] CNPDonna [facility]-02-20[facility] N[facility]CI [facility]ODRIGUEZ ([id number]) 1980 F Date Time Provider Department 01/02/25 JOHNSON RM INTWS During your visit today, we recorded the following information about you: Jessica Mason LPN 01/02/2025 10:06 AM Signed Patient calling asking to have face to face notes faxed to [facility] at [phone]. Printed and faxed as requested. Allergies As of Date: 01/02/2025 Noted Allergy Reaction PENICILLINS 08/24/2011 9 - Itching 4 - Hives MELATONIN 11/08/2016 2 - Rash 4 - Hives TRAMADOL 07/10/2013 14 - Other: See Comments Comments: tic like movements WELLBUTRIN (BUPROPION) 03/12/2019 5 - Intolerance Comments: Dry mouth--severe, intolerable Date Reviewed: 01/01/2025 Reviewed by: Lizabeth Hurtado LPN - Fully Assessed Reason for Visit: fax records to [facility] [Other] Prescriptions as of 01/02/2025 - HYDROcodone-acetamino phen (NORCO) 5-325 mg per tablet Take 1-2 tablets by mouth every 6 hours as needed for pain for up to 7 days. - dulaglutide (TRULICITY) 3 mg/0.5 mL pen injector Inject 3 mg subcutaneously one time a week. Inject dose once per week. Discard Pen After - CPAP Needs replacement CPAP @ 15 cm of water with humidification. Mask (per patient preference) optional chin strap (if indicated) , filters, tubing, humidifier and lifetime supplies. G47.33 MARIA TERESA on CPAP - celecoxib (CELEBREX) 400 mg capsule Take 1 capsule by mouth once daily. Take with food - Lancets Test blood sugar(s) once times daily. Dx: Type 2 DM - Controlled E11.9 Insulin: No - cyclobenzaprine (FLEXERIL) 10 mg tablet Take 1 tablet by mouth three times a day as needed for muscle spasm. May make drowsy - blood sugar diagnostic (BLOOD GLUCOSE TEST) test strip Test blood sugar(s) one time daily. Dx: Type 2 DM - Controlled E11.9 Insulin: No. Uses True Metrix test strips. - metFORMIN (GLUCOPHAGE) 500 mg tablet Take 2 tablets by mouth two times a day with meals. Take one additional 500 mg tab with breakfast or lunch until BS less than 250 - furosemide (LASIX) 40 mg tablet Take 1 tablet by mouth once daily. - SUMAtriptan (IMITREX) 25 mg tablet Take 1 tablet by mouth at onset of headache and may repeat in 2 hrs if needed. - promethazine (PHENERGAN) 12.5 mg tablet Take 1 tablet by mouth four times a day as needed for nausea/vomiting. - loratadine (CLARITIN) 10 mg tablet Take 1 tablet by mouth once daily. - mometasone-formoterol (DULERA) 50-5 mcg/actuation HFA aerosol inhaler Inhale 1 Puff as instructed two times a day. Rinse mouth out after use. - dulaglutide (TRULICITY) 0.75 mg/0.5 mL pen injector Inject 0.75 mg subcutaneously one time a week. Inject dose once per week. Discard Pen After - benzonatate (TESSALON PERLE) 100 mg capsule Take 1-2 capsules by mouth three times a day as needed. - glimepiride (AMARYL) 4 mg tablet Take 1 tablet by mouth daily with breakfast. Dose change, take one daily - montelukast (SINGULAIR) 10 mg tablet Take 1 tablet by mouth daily at bedtime. - albuterol HFA (VENTOLIN HFA) 90 mcg/actuation inhaler Inhale 2 Puffs as instructed every 4 hours as needed. - ferrous sulfate 325 mg (65 mg iron) tablet Take 1 tablet by mouth every Sunday, Sunday, and Sunday. - topiramate (TOPAMAX) 100 mg tablet Take 1 tablet by mouth two times a day. - lansoprazole (PREVACID) 30 mg capsule Take 1 capsule by mouth daily before breakfast. - pramipexole (MIRAPEX) 1.5 mg tablet Take 1 tablet by mouth daily at bedtime. - QUEtiapine (SEROQUEL) 25 mg tablet Take 75 mg by mouth daily at bedtime. - lamoTRIgine (LAMICTAL) 200 mg tablet Take 1 tablet by mouth two times a day. - diphenhydrAMINE (BENADRYL) 25 mg capsule Take 1 capsule by mouth every 6 hours as needed for itching/rash. - glucose 4 gram chewable tablet Take 4 tablets by mouth as needed for low blood sugar. - lidocaine (LIDODERM) 5 % Apply 1 Patch as directed every 24 hours. Remove after 12 hours. - silver sulfADIAZINE (SILVADENE) 1 % cream Apply 1 application to affected area once daily. - Albuterol Sulfate 1.25 mg/3 mL nebulizer solution Use 1 Ampule via nebulizer every 4 hours as needed for wheezing/shortness of breath. - ARIPiprazole (ABILIFY) 5 mg tablet Take 1 tablet by mouth once daily. - [facility] monitoring kit USE DIRECTED - CPAP Needs lifetime supplies (mask, hoses, headgear, filters, water chamber) G47.33 (already has CPAP) - LORazepam (ATIVAN) 1 mg tablet Take 1 tablet by mouth twice daily. As needed. - Nebulizer NEBULIZER and Supplies FOR HOME USE. DX: J45.40 - citalopram (CELEXA) 40 mg tablet Take 40 mg by mouth once daily. [facility] Problem List As Of Date 01/02/2025 Noted Resolved Asthma [J45.909] Allergic rhinitis [J30.9] Migraine without aura [G43.009] 03/29/2006 Supervision of other normal [Z34.80] 2006 12/12/2011 S (more content not included)... Normal [facility] CNOVon 01-01-2025 CNOV Office Visit (INTMWS ) NANCI RODRIGUEZ ([id number]) 1980 F Date Time Provider Department 01/01/25 3:00 PM JOHNSON RM INTMWS During your visit today, we recorded the following information about you: Pulse Respiration Blood pressure Weight 112/minute 16/minute 137/87 170.6 kg Johnson Rm APRN.SENIOR SHAREPOINT ARCHITECT 01/01/2025 3:54 PM Signed Subjective Patient ID: Nanci is a 44 year old female who presents for CPAP Supplies (Reevaluation for need. Needs script and supplies. Patient uses [facility]). HPI Returns for a follow-up visit today. She notes need for CPAP, reports that this was removed due to not using when she received the wrong size mask and could not get it replaced in a timely fashion. Sleep Apnea: - Reports CPAP machine was repossessed by insurance due to non-use. -Sleep study was completed in 2014 at [facility] and it showed severe MARIA TERESA with oxygen desaturations. She has previously used CPAP consistently and benefited from its use. She would like to resume this. - Currently reports severe insomnia, sleeping only 2 hours per night without CPAP. - Takes 75 mg of Seroquel at night, which induces sleep for 2-3 hours before experiencing restlessness. - Previously achieved 4-6 hours of sleep per night with CPAP. Back Pain: - Severe back pain, reports unable to walk without assistance. - Pain exacerbated by standing upright; requires walking with a tilted posture. - Uses nguyen for support when ambulating at home. - Increased Celebrex dosage and muscle relaxants provide some relief. - Hydrocodone provides moderate relief, allowing for increased mobility. - Physical therapy scheduled to start on Sunday at [facility]. - MRI scheduled for 01/31 at the [facility] due to transportation limitations, states can not go out of town due to mother being ill with cancer and assisting her as well. Diabetes Mellitus: - A1c was 9.2%. - Currently taking Trulicity 1.5 mg, with good tolerance and no adverse effects. - Blood glucose levels typically around 150 mg/dL, occasionally in the 200s. - No episodes of hypoglycemia reported. - Recent weight measured at 376 lbs, consistent with previous measurements. - Previous weight gain attributed to steroid use for sciatica. Thrombocytopenia: - Recent platelet count was 74 x109/L. - No follow-up appointment scheduled with avionics integration engineer Dr. Driscoll. ROS Constitutional: (+) fatigue, (+) sleep disturbance Musculoskeletal: (+) low back pain, (+) right leg pain, (+) left leg pain Neurological: (-) numbness/tingling Objective BP 137/87 Pulse 112 Resp 16 Wt (!) 170.6 kg (376 lb 1.7 oz) LMP 10/13/2024 (Exact Date) BMI 67.74 kg/m? Physical Exam Vitals and nursing note reviewed. Constitutional: Appearance: Normal appearance. HENT: Head: Normocephalic and atraumatic. Eyes: Conjunctiva/sclera: Conjunctivae normal. Cardiovascular: Rate and Rhythm: Normal rate. Pulmonary: Effort: Pulmonary effort is normal. Musculoskeletal: Lumbar back: Tenderness present. Decreased range of motion. Comments: tenderness across low back and radiating down both legs, sensation and motion preserved Neurological: General: No focal deficit present. Mental Status: She is alert and oriented to person, place, and time. 1. MARIA TERESA on CPAP (G47.33) She has a history of severe sleep apnea and oxygen desaturations which have previously been significantly helped with CPAP use. She would like to resume dose. I endorsed resuming treatment of her MARIA TERESA and oxygen desaturation. She reports insurance indicated non-compliance of use previously. She reports this was secondary to incorrect mask delivery which she could not use and it was not replaced in a timely fashion. - Currently experiencing severe sleep disruption, averaging 2 hours of sleep per night; previously achieved 4-6 hours with CPAP. - Previously ordered CPAP machine through [employer];will use this DME and instructed Nancijorge l Rodriguez to follow up with supplier tomorrow to expedite delivery. 2. 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 Radiculopathy of lumbar region (M54.16) - Severe pain limiting ambulation; requires support to walk. - Increased Celebrex dosage and muscle relaxants provide some relief. - Hydrocodone effective in improving mobility; continue current dosage. - MRI scheduled for 01/31 at local hospital to evaluate underlying pathology. - Initiated physical therapy at [facility] starting Sunday. - Avoided prescribing prednisone due to potential exacerbation of hyperglycemia. 4. Uncontrolled type 2 diabetes mellitus with hyperglycemia (HCC) (E11.65) - Hemoglobin A1c at 9.2%, indicating poor glycemic control. - Currently on Trulicity 1.5 mg; no adverse effects reported. - Blood glucose levels generally around 150 mg/dL, with occasional readings in t (more content not included)... Normal [facility] CNOVon 12-23-2024 CNOV Office Visit (INTMWS ) NANCI RODRIGUEZ ([id number]) 1980 F Date Time Provider Department 12/23/24 1:20 PM JOHNSON RM INTMWS During your visit today, we recorded the following information about you: Temperature Pulse Blood pressure Weight 97.6 degrees 116/minute 124/84 171.6 kg Johnson Rm APRN.SENIOR SHAREPOINT ARCHITECT 12/23/2024 2:00 PM Signed Subjective Patient ID: Nanci is a 44 year old female who presents for [facility] ER follow-up . HPI She was seen in [facility] for acute midline low back pain, improved with treatment with prednisone and cyclobenzaprine 025 since last seen in . Presents for ER follow up visit. She was seen at [facility] ER 12/15/2024 for severe acute on chronic back pain, different that her usual back pain. Lumbar XR negative for cute findings. Today reports Low Back Pain: - Severe, constant low back pain x3 weeks, radiating to both legs, more pronounced in the right leg. - Pain localized to the lower back, described as paralyzing when it radiates to the spine, no actual paralysis noted. No alarm symptoms reported - Aggravated by walking, prolonged sitting, and standing; unable to lie on back or left side. - Slight relief when lying on the right side. - Requires assistance to roll over in bed due to pain. - Pain onset possibly related to household activities; denies heavy lifting. - Recent ER visit for pain management; received [place], now taking OTC ibuprofen 220 mg, 2-3 tablets Q6H, and Tylenol alternately Q6H with minimal relief. - Currently taking Celebrex daily and cyclobenzaprine; reports cyclobenzaprine is ineffective. - Previous X-ray performed; no MRI done. No independent living specialist. - History of physical therapy for back pain in [id number]. ROS Constitutional: (+) fatigue, (+) sleep disturbance Musculoskeletal: (+) low back pain, (+) right leg pain, (+) left leg pain Neurological: (-) numbness/tingling Objective BP 124/84 (BP Site: Right Arm, BP Position: Sitting, BP Cuff Size: Large Adult) Pulse 116 Temp 36.4 ?C (97.6 ?F) (Temporal) Wt (!) 171.6 kg (378 lb 5 oz) LMP 10/13/2024 (Exact Date) BMI 68.13 kg/m? Physical Exam Vitals and nursing note reviewed. Constitutional: Appearance: Normal appearance. HENT: Head: Normocephalic and atraumatic. Eyes: Conjunctiva/sclera: Conjunctivae normal. Cardiovascular: Rate and Rhythm: Normal rate. Pulmonary: Effort: Pulmonary effort is normal. Musculoskeletal: Lumbar back: Tenderness present. Decreased range of motion. Comments: tenderness across low back and radiating down both legs, sensation and motion preserved Neurological: General: No focal deficit present. Mental Status: She is alert and oriented to person, place, and time. 1. Chronic midline low back pain, unspecified whether sciatica present (M54.50) 2. Radiculopathy of lumbar region (M54.16) 3. Lumbago (M54.50) - Severe, constant low back pain radiating to both legs x 3 weeks, more pronounced on the right side, with associated paroxysmal episodes of pain exacerbated by walking, prolonged sitting, and standing, with minimal relief when lying on the right side. - Pain has been ongoing for three weeks, with increasing severity; initial management with [place] provided temporary relief, but current use of OTC ibuprofen and Tylenol is ineffective. - Physical examination reveals tenderness in the lower back, particularly on the sides, with less severe pain in the midline; no numbness or tingling reported. - Increased Celebrex dosage to 400 mg daily -can take two 200 mg until gone. - Prescribed a week's supply of [place] for severe pain management, with instructions to use as needed, preferably at bedtime due to sedative effects. Discussed OIC and remedy,plans to use senna - Ordered MRI of the lumbar spine to further evaluate underlying pathology; recommended [facility] for imaging. - Advised patient to seek immediate ER evaluation if experiencing loss of bowel or bladder function, or if unable to ambulate due to severe pain. - Discussed potential referral to a independent living specialist based on MRI findings. - Patient has a current prescription for cyclobenzaprine; advised to continue as needed. PT consult placed - Patient understands and agrees with the treatment plan. Has one month follow up visit scheduled. Johnson Rm APRN.SENIOR SHAREPOINT ARCHITECT Medical Decision Making: Problems: Moderate: 1+ chronic illnesses with change Data: Unique source(s) for external note(s) reviewed: 1 Unique test result(s) reviewed: 2 Unique test(s) ordered: 1 Risk: Moderate: Drug management Medical Decision Making Level: 4 - Moderate Allergies As of Date: 12/23/2024 Noted Allergy Reaction PENICILLINS 08/24/2011 9 - Itching 4 - Hives MELATONIN 11/08/2016 2 - Rash 4 - Hives TRAMADOL 07/10/2013 14 - Other: See Comments Comments: tic like movements WELLBUTRIN (more content not included)... Normal [facility] UA DIP, URINE (POC)on 2024 BILIRUBIN UA (POCT) Negative Negative [facility] CLARITY UA (POCT) Clear [facility] COLOR UA (POCT) Yellow [facility] GLUCOSE UA (POCT) Negative Negative mg/dL [facility] Hemoglobin Ql (U) Negative Negative [facility] KETONE UA (POCT) Negative Negative mg/dL [facility] LEUKOCYTES UA (POCT) Negative [facility] (PO[facility]) Negative Negative [facility] PH UA (POCT) 8 4.5 - 8.0 [facility] Protein Ql (U) Negative Negative mg/dL [facility] SPECIFIC GRAVITY UA (POCT) 1.02 1.005 - 1.030 [facility] UROBILINOGEN UA (POCT) 1 Rosalie l E.U./dL [facility] Location:[facility], [address], [place], [address] [facility] POINT OF CARE [facility] Emergency Department Summary on 12-15-2024 Emergency Department Summary [facility] Medical Records Department [address] [place] [address] Emergency Department Summary 12/15/24 MR#: [id number] Acct: [id number] Name: NANCI RODRIGUEZ Rep #: [id number] : 1980 44 From: Arcadio Bundy MD PCP: Dr. Rodri Chauhan MD Status:REG ER Location: ED HPI History of Present Illness Chief Complaint: Back Informant: patient Narrative Narrative: 44-year-old male presenting with back pain gradual in onset for the past week or so. All the way across her low back, no radiation into her legs, no bowel or bladder dysfunction, no perineal paresthesias/anesthes ia. Denies any injury, overuse, repetitive movements that she can remember. She states she has a history of low back pain that is chronic and she associates with her degenerative disc disease, sometimes with and sometimes without sciatica, and she states she started with that sciatica pain at the beginning of this past 1 or 2 weeks ago, and was prescribed some prednisone which took the sciatica away but now this pain is severe and unlike her chronic pain. No abdominal pain with this, fevers, chills, or other systemic symptoms. Hurts more to move and better to rest. States she has chronic asymmetric lymphedema worse on the right leg, uses compression stockings states that she will need them for life, no changes there. History of wounds that are not currently present everything healed. [facility] Medical History Open wound History of steroid therapy Diabetes Easy bruising Restless legs Migraine headache Wears glasses Cracked tooth Difficulty chewing GERD (gastroesophageal reflux disease) Electronic cigarette use CPAP (continuous positive airway pressure) dependence Shortness of breath on exertion History of stress test Anxiety Sleep apnea COPD (chronic obstructive pulmonary disease) Asthma Obesity Diabetes Bipolar 1 disorder Home Medications ???Medication ???Instructions ???Recorded ???Last Taken ???Type loratadine 10 mg tablet (Allergy 10 mg PO DAILY Allergies 07/07/13 11/07/19 History Relief (loratadine)) lorazepam 1 mg tablet 1 mg PO BID PRN PRN Anxiety 06/26/19 History montelukast 10 mg tablet 10 mg PO QHS 08/10/16 11/07/19 His tory sumatriptan succinate 25 mg tablet 25 mg PO .X1 PRN PRN Migraine 06/30/19 History (Imitrex) Symptoms aripiprazole 2 mg tablet 5 mg PO QHS 07/01/19 06/20/23 Hist ory citalopram 40 mg tablet 40 mg PO DAILY 07/01/19 09/28/23 H istory lamotrigine 200 mg tablet 200 mg PO BID 07/01/19 09/28/23 Hi story metformin 500 mg tablet 1,000 mg PO BID dm 07/01/19 History naproxen 500 mg tablet 500 mg PO BID PRN PRN Pain Or Feve r 07/01/19 Unknown History topiramate 100 mg tablet 100 mg PO BID 07/01/19 11/07/19 Hi story glimepiride 2 mg tablet 4 mg PO DAILY 11/08/19 11/07/19 Hi story lansoprazole 30 mg capsule,delayed 30 mg PO DAILY #30 CAPSULES 12/1609/28/23 Rx release albuterol sulfate 90 mcg/actuation 2 puff inhalation Q4H PRN PRN 09/28/23 Rx aerosol inhaler (Ventolin HFA) Wheezing ##1 ferrous sulfate 325 mg (65 mg 325 mg PO TID #90 tabs 09/07/22 Un known Rx iron) tablet (FeroSul) furosemide 20 mg tablet 20 mg PO BID 09/07/22 Unknown Hist ory cyclobenzaprine 10 mg tablet 10 mg PO TID PRN Muscle Spasm #20 12/09/22 Unknown Rx TABLETS pramipexole 1.5 mg tablet (Mirapex) 1.5 mg PO QHS 09/25/23 Unknown History ascorbic acid (vitamin C) 1,000 mg 1 g PO DAILY 90 days #90 tabs Unknown Rx tablet (Vitamin C) calcium 500 mg (as 1 tab PO DAILY 90 days #90 tabs Unknown Rx carbonate)-vitamin D3 15 mcg (600 unit) tablet (Os-Wilfredo 500 + D3) cyclobenzaprine 10 mg tablet 10 mg PO TID 7 days #21 tabs 09/28 Unknown Rx docusate sodium 100 mg capsule 100 mg PO DAILY 10 days #10 caps 0 09/28/23 Unknown Rx (Colace) acetaminophen 500 mg tablet 1,000 mg (2 x 500 mg) PO Q6H PRN 0 03/09/24 Unknown Rx (Tylenol Extra Strength) pain 7 days #56 tabs benztropine 1 mg tablet 1 mg PO BID PRN PRN legs 03/09/24 Unknown History quetiapine 25 mg tablet (Seroquel) 25 mg PO DAILY 04/09/24 04/09/24 History sulfamethoxazole 800 1 tab PO BID 2 weeks #28 tabs 06/10 Unknown Rx mg-trimethoprim 160 mg tablet (Bactrim DS) amoxicillin 875 mg-potassium 1 tab PO BID 2 weeks #28 tabs 06/17 03/10 Unknown Rx clavulanate 125 mg tablet gentamicin 0.1 % topical ointment 1 applic topical TID #30 grams Unknown Rx cephalexin 500 mg capsule 500 mg PO Q6 #20 CAPSULES 07/17/24 Unknown Rx hydrocodone-acetamino phen 5-325mg 1 tab PO Q6H PRN PRN Pain 3 days 12/15/24 Unknown Rx 5mg-325mg #10 TABLETS Allergy/AdvReac Type Severity Reaction Statu (more content not included)... Normal [facility] Lumbar Spine 2 or 3 Viewson 12-15-2024 Lumbar Spine 2 or 3 Views [facility] Imaging Services [facility] [place] [address] Lumbar Spine 2 or 3 Views MR#: [id number] Acct: [id number] Name: NANCI RODRIGUEZ Rep #: [id number] : 1980 F 44 From: Robbin Hare DO PCP: Dr. Rodri Chauhan MD Status: REG ER Study: Lumbar Spine 2 or 3 Views Date of Exam: Exam# [id number] Ordering Dr: Arcadio Bundy MD PROCEDURE: LUMBAR SPINE 2 OR 3 VIEWS 12/15/2024 REASON FOR EXAM: PAIN TECHNIQUE: 2 view(s) of the lumbar spine COMPARISON: None. FINDINGS: Vertebrae: Vertebral body heights are maintained. Transverse and spinous processes appear intact but are not highly visible. Discs: Multilevel degenerative loss of disc height. Alignment: AP alignment grossly maintained. Other: RAD/Lumbar Spine 2 or 3 Views IMPRESSION: No acute process detected. Reading Location: [facility] CC: Dr. Arcadio Bundy MD; Dr. Rodri Chauhan MD Financial Services Professional: Signed Normal [facility] CITRATED PLATELET COUNTon CITRATED PLATELET COUNT (WAM) 74 k/uL Low 150-400 [facility] Comment on above: Order Comment: Speci men Type: BLOOD SPECIMENOrdering Facility: [facility] Address: [address] [place] [address] Result Comment: Plat elet count confirmed by manual review of peripheral blood smear. No clot detected. Performed By: #### C ITPLT ####[facility] LABCLIA [id number] [place] [address] [place] CNOVSPon 12-12-2024 CNOVSP Visit (SP) Office (HEMAWS) NANCI RODRIGUEZ ([id number]) 1980 F Date Time Provider Department 12/12/24 10:30 AM JORGE DRISCOLL During your visit today, we recorded the following information about you: Temperature Pulse Blood pressure Weight 97.6 degrees 100/minute 130/60 170.8 kg Height 1.587 m Jorge Driscoll MD 12/12/2024 11:20 AM Signed HISTORY OF PRESENT ILLNESS: Nanci Rodriguez is a 44 year old female referred for thrombocytopenia. Stable low platelets since 2020, noted platelet clumping 2019. Occ nose bleed. Reviewed meds, also CT scans We note fatty liver. Iron supplement MW for several months now. CLINICAL IMPRESSION: Stable mild thrombocytopenia, suspect relates to fatty liver,as WBC also a little low. RECOMMENDATION/PLAN: 1. Citrated platelet count, iron studies 2. Follow up prn Written and verbal health teaching given to patient, patient verbalizes understanding and agrees with treatment plan. PAST MEDICAL HISTORY Diagnosis Date Abnormal glandular [...] 11/07/2006 Right hip pain 12/15/2013 Unspecified asthma(493.90) PAST SURGICAL HISTORY Procedure Laterality Date BACK SURGERY HX Pain block COLONOSCOPY W/BIOPSY SINGLE/MULTIPLE 10/22/2017 EGD TRANSORAL BIOPSY SINGLE/MULTIPLE 10/22/2017 RPR UMBILICAL HRNA 5 YRS/> REDUCIBLE 10/05/[address] mesh VAGINOSCOPY FAMILY HISTORY Problem Relation Age of Onset other (hepatitis b) Mother Lung Cancer Mother other (hip cancer) Mother Asthma Father Hypertension Father Diabetes Father Hypertension Brother Diabetes Brother Diabetes Brother Hypertension Brother adhd Asthma Brother other (lung cancer) Maternal Uncle Social History Tobacco Use Smoking status: Every Day Current packs/day: 0.25 Average packs/day: 0.3 packs/day for 26.3 years (6.6 ttl pk-yrs) Types: Cigarettes Start date: 08/17/1998 Smokeless tobacco: Never Vaping Use Vaping status: Former Quit date: 12/13/2023 Substance Use Topics Alcohol use: Never Drug use: No Comment: Past history of Marjiuana use ALLERGIES: ALLERGIES Allergen Reactions Penicillins Itching, Hives Melatonin Rash, Hives Tramadol Other: See Comments tic like movements Wellbutrin [Bupropi* Intolerance Dry mouth--severe, intolerable CURRENT OUTPATIENT MEDICATIONS: dulaglutide (TRULICITY) 1.5 mg/0.5 mL pen injector Inject 1.5 mg subcutaneously one time a week. Inject dose once per week. Discard Pen After cyclobenzaprine (FLEXERIL) 10 mg tablet Take 1 tablet by mouth three times a day as needed for muscle spasm. May make drowsy metFORMIN (GLUCOPHAGE) 500 mg tablet Take 2 tablets by mouth two times a day with meals. Take one additional 500 mg tab with breakfast or lunch until BS less than 250 furosemide (LASIX) 40 mg tablet Take 1 tablet by mouth once daily. SUMAtriptan (IMITREX) 25 mg tablet Take 1 tablet by mouth at onset of headache and may repeat in 2 hrs if needed. promethazine (PHENERGAN) 12.5 mg tablet Take 1 tablet by mouth four times a day as needed for nausea/vomiting. loratadine (CLARITIN) 10 mg tablet Take 1 tablet by mouth once daily. mometasone-formoterol (DULERA) 50-5 mcg/actuation HFA aerosol inhaler Inhale 1 Puff as instructed two times a day. Rinse mouth out after use. celecoxib (CELEBREX) 200 mg capsule Take 1 capsule by mouth once daily. Take with food glimepiride (AMARYL) 4 mg tablet Take 1 tablet by mouth daily with breakfast. Dose change, take one daily montelukast (SINGULAIR) 10 mg tablet Take 1 tablet by mouth daily at bedtime. albuterol HFA (VENTOLIN HFA) 90 mcg/actuation inhaler Inhale 2 Puffs as instructed every 4 hours as needed. ferrous sulfate 325 mg (65 mg iron) tablet Take 1 tablet by mouth every Sunday, Sunday, and Sunday. topiramate (TOPAMAX) 100 mg tablet Take 1 tablet by mouth two times a day. lansoprazole (PREVACID) 30 mg capsule Take 1 capsule by mouth daily before breakfast. pramipexole (MIRAPEX) 1.5 mg tablet Take 1 tablet by mouth daily at bedtime. QUEtiapine (SEROQUEL) 25 mg tablet Take 75 mg by mouth daily at bedtime. lamoTRIgine (LAMICTAL) 200 mg tablet Take 1 tablet by mouth two times a day. diphenhydrAMINE (BENADRYL) 25 mg capsule Take 1 capsule by mouth every 6 hours as needed for itching/rash. glucose 4 gram (more content not included)... Normal [facility] Ferritin SerPl-ncon 2024 Ferritin [Mass/Vol] 21.5 ng/mL Normal 14.7-205.1 [facility] Comment on above: Order Comment: Speci men Type: BLOOD SPECIMENOrdering Facility: [facility] Address: [address] [place] [address] Performed By: #### 2 276-4, 12721-1, 2132-05 ####[facility] LABCLIA [id number] [place] [address] [place] Iron and Iron binding capaci [facility] 12-12-2024 Iron [Mass/Vol] 27 ug/dL Low 41-186 [facility] Comment on above: Order Comment: Speci men Type: BLOOD SPECIMENOrdering Facility: [facility] Address: [address] [place] [address] Performed By: #### 2 276-4, 23218-0, 2132-05 ####[facility] LABCLIA [id number] [place] [address] [place] Iron binding capacity [Mass/Vol] 363 ug/dL Normal 232-386 [facility] Comment on above: Order Comment: Speci men Type: BLOOD SPECIMENOrdering Facility: [facility] Address: [address] [place] [address] Performed By: #### 2 276-4, 04066-4, 2132-05 ####[facility] LABCLIA [id number] [place] [id number] [facility] Iron/TIBC [Molar ratio] 7.4 % Low 15.0-57.0 C [facility] Comment on above: Order Comment: Speci men Type: BLOOD SPECIMENOrdering Facility: [facility] Address: [address] [place] [address] Performed By: #### 2 276-4, 34043-0, 9 ####[facility] LABIA [id number] [address] Vit B12 SerPl-ncon 28-2 025 Cobalamin (Vitamin B12) [Mass/Vol] 395 pg/mL Normal 232-1245 [facility] Comment on above: Order Comment: Mitzi banda Type: BLOOD SPECIMENOrdering Facility: [facility] Address: [address] [place] [address] Performed By: #### 2 276-4, 41534-3, 9 ####[facility] LABIA [id number] [address] [facility] CNOVon 11-13-2024 CNOV Office Visit (UCTR ) NANCI RODRIGUEZ ([id number]) 1980 F Date Time Provider Department 11/13/24 9:45 AM ERENDIRA NOE [facility] During your visit today, we recorded the following information about you: Temperature Pulse Respiration Blood pressure 98.8 degrees 104/minute 20/minute 160/85 Weight Last Period 165 kg 10/13/24 Erendira Noe APRN.SENIOR TRAINER 11/13/2024 10:27 AM Signed Subjective Female with complaints of back pain. Patient says she has had this pain before. Patient says it does radiate a little bit down her left lower left leg. Patient says she has been diagnosed with a pinched nerve. Patient says it feels the same denies any difficulty urinating or having bowel movements. Denies any other symptoms. The history is provided by the patient. No speech/language therapist was used. Review of Systems Constitutional: Negative. Skin: Negative. Objective Physical Exam Constitutional: Appearance: Normal appearance. Pulmonary: Effort: Pulmonary effort is normal. Skin: Comments: Tender in the area marked above. ROM in normal limits. Sensation intact. Neurological: Mental Status: She is alert. PAST MEDICAL HISTORY Diagnosis Date Abnormal glandular [...] 11/07/2006 Right hip pain 12/15/2013 Unspecified asthma(493.90) PAST SURGICAL HISTORY Procedure Laterality Date BACK SURGERY HX Pain block COLONOSCOPY W/BIOPSY SINGLE/MULTIPLE 10/22/2017 EGD TRANSORAL BIOPSY SINGLE/MULTIPLE 10/22/2017 RPR UMBILICAL HRNA 5 YRS/> REDUCIBLE 10/05/[address] mesh VAGINOSCOPY ALLERGIES Penicillins, Melatonin, Tramadol, and Wellbutrin [Bupropion] MEDICATIONS metFORMIN (GLUCOPHAGE) 500 mg tablet Take 2 tablets by mouth two times a day with meals. Take one additional 500 mg tab with breakfast or lunch until BS less than 250 furosemide (LASIX) 40 mg tablet Take 1 tablet by mouth once daily. SUMAtriptan (IMITREX) 25 mg tablet Take 1 tablet by mouth at onset of headache and may repeat in 2 hrs if needed. promethazine (PHENERGAN) 12.5 mg tablet Take 1 tablet by mouth four times a day as needed for nausea/vomiting. loratadine (CLARITIN) 10 mg tablet Take 1 tablet by mouth once daily. cyclobenzaprine (FLEXERIL) 10 mg tablet Take 1 tablet by mouth three times a day as needed for muscle spasm. May make drowsy mometasone-formoterol (DULERA) 50-5 mcg/actuation HFA aerosol inhaler Inhale 1 Puff as instructed two times a day. Rinse mouth out after use. dulaglutide (TRULICITY) 0.75 mg/0.5 mL pen injector Inject 0.75 mg subcutaneously one time a week. Inject dose once per week. Discard Pen After celecoxib (CELEBREX) 200 mg capsule Take 1 capsule by mouth once daily. Take with food benzonatate (TESSALON PERLE) 100 mg capsule Take 1-2 capsules by mouth three times a day as needed. glimepiride (AMARYL) 4 mg tablet Take 1 tablet by mouth daily with breakfast. Dose change, take one daily montelukast (SINGULAIR) 10 mg tablet Take 1 tablet by mouth daily at bedtime. albuterol HFA (VENTOLIN HFA) 90 mcg/actuation inhaler Inhale 2 Puffs as instructed every 4 hours as needed. dulaglutide (TRULICITY) 1.5 mg/0.5 mL pen injector Inject 1.5 mg subcutaneously one time a week. Inject dose once per week. Discard Pen After ferrous sulfate 325 mg (65 mg iron) tablet Take 1 tablet by mouth every Sunday, Sunday, and Sunday. topiramate (TOPAMAX) 100 mg tablet Take 1 tablet by mouth two times a day. lansoprazole (PREVACID) 30 mg capsule Take 1 capsule by mouth daily before breakfast. pramipexole (MIRAPEX) 1.5 mg tablet Take 1 tablet by mouth daily at bedtime. QUEtiapine (SEROQUEL) 25 mg tablet Take 75 mg by mouth daily at bedtime. CPAP Needs replacement CPAP @ 15 cm of water with humidification. Mask (per patient preference) optional chin strap (if indicated) , filters, tubing, humidifier and lifetime supplies. G47.33 MARIA TERESA on CPAP lamoTRIgine (LAMICTAL) 200 mg tablet Take 1 tablet by mouth two times a day. diphenhydrAMINE (BENADRYL) 25 mg capsule Take 1 capsule by mouth every 6 hours as needed for itching/rash. glucose 4 gram chewable tablet Take 4 tablets by mouth as needed for low blood sugar. lidocaine (LIDODERM) 5 % Apply 1 Patch as directed every 24 hours. Remove after 12 hours. Lancets Test blood sugar(s) once times daily. Dx: Type 2 DM - C (more content not included)... [facility] NAREN[facility]AN [facility] (FAMPWS) RODRIGUEZNANCI TARIQ Teresa ([id number]) 1980 F Date Time Provider Department 11/11/24 RODRI CHAUHAN [facility] During your visit today, we recorded the following information about you: Suze Miller LPN 11/11/2024 4:56 PM Signed Pt calls to report she received a message that she might have to pay $1,[address] Jorge Driscoll with [facility] on 11/14/24. The referral was put through [employer] which is shown as pt's primary insurance. Pt reports she has never had [employer] and what she has is [employer] (shows as secondary insurance). Spoke to pt and transferred her to PSS to see if [employer] could be deactivated and [employer] put as primary. [facility]. Referral originally was from Preeti Kaba CNP. Sent an email to [employer] who reports: [employer] ? Suze Miller; Sylwia Marcial If this patient now has [employer] then the registration will need to be updated. Thank you, Ana Mazariegos MA 11/13/2024 2:26 PM Addendum Spoke to HEMON armored car driver/PSS who will update patient's insurance/registation to avoid 1000 charge AND will update patient on status. EDIT* PFA added AND after review of account appointment will need to be cancelled d/t insurance correctly pulling [employer] as primary. Patient will have to call to cancel [employer] primary coverage. Appointment will be rescheduled. PSS in contact with patient AND will reschedule [facility]EM[facility] appt. Ana MyersGALO Allergies As of Date: 11/11/2024 Noted Allergy Reaction PENICILLINS 08/24/2011 9 - Itching 4 - Hives MELATONIN 11/08/2016 2 - Rash 4 - Hives TRAMADOL 07/10/2013 14 - Other: See Comments Comments: tic like movements WELLBUTRIN (BUPROPION) 03/12/2019 5 - Intolerance Comments: Dry mouth--severe, intolerable Date Reviewed: 10/20/2024 Reviewed by: Preeti Kaba APRN.SENIOR TRAINER - Fully Assessed Reason for Visit: referral problem [Other] Prescriptions as of 11/13/2024 - predniSONE (DELTASONE) 10 mg tablet Take 4 tabs daily for 3 days, then 2 tabs daily for 3 days, then 1 tab daily for 3 days with food. - cyclobenzaprine (FLEXERIL) 10 mg tablet Take 1 tablet by mouth three times a day as needed for muscle spasm for up to 7 days. - metFORMIN (GLUCOPHAGE) 500 mg tablet Take 2 tablets by mouth two times a day with meals. Take one additional 500 mg tab with breakfast or lunch until BS less than 250 - furosemide (LASIX) 40 mg tablet Take 1 tablet by mouth once daily. - SUMAtriptan (IMITREX) 25 mg tablet Take 1 tablet by mouth at onset of headache and may repeat in 2 hrs if needed. - promethazine (PHENERGAN) 12.5 mg tablet Take 1 tablet by mouth four times a day as needed for nausea/vomiting. - loratadine (CLARITIN) 10 mg tablet Take 1 tablet by mouth once daily. - cyclobenzaprine (FLEXERIL) 10 mg tablet Take 1 tablet by mouth three times a day as needed for muscle spasm. May make drowsy - mometasone-formoterol (DULERA) 50-5 mcg/actuation HFA aerosol inhaler Inhale 1 Puff as instructed two times a day. Rinse mouth out after use. - dulaglutide (TRULICITY) 0.75 mg/0.5 mL pen injector Inject 0.75 mg subcutaneously one time a week. Inject dose once per week. Discard Pen After - celecoxib (CELEBREX) 200 mg capsule Take 1 capsule by mouth once daily. Take with food - benzonatate (TESSALON PERLE) 100 mg capsule Take 1-2 capsules by mouth three times a day as needed. - glimepiride (AMARYL) 4 mg tablet Take 1 tablet by mouth daily with breakfast. Dose change, take one daily - montelukast (SINGULAIR) 10 mg tablet Take 1 tablet by mouth daily at bedtime. - albuterol HFA (VENTOLIN HFA) 90 mcg/actuation inhaler Inhale 2 Puffs as instructed every 4 hours as needed. - dulaglutide (TRULICITY) 1.5 mg/0.5 mL pen injector Inject 1.5 mg subcutaneously one time a week. Inject dose once per week. Discard Pen After - ferrous sulfate 325 mg (65 mg iron) tablet Take 1 tablet by mouth every Sunday, Sunday, and Sunday. - topiramate (TOPAMAX) 100 mg tablet Take 1 tablet by mouth two times a day. - lansoprazole (PREVACID) 30 mg capsule Take 1 capsule by mouth daily before breakfast. - pramipexole (MIRAPEX) 1.5 mg tablet Take 1 tablet by mouth daily at bedtime. - QUEtiapine (SEROQUEL) 25 mg tablet Take 75 mg by mouth daily at bedtime. - CPAP Needs replacement CPAP @ 15 cm of water with humidification. Mask (per patient preference) optional chin strap (if indicated) , filters, tubing, humidifier and lifetime supplies. G47.33 MARIA TERESA on CPAP - lamoTRIgine (LAMICTAL) 200 mg tablet Take 1 tablet by mouth two times a day. - diphenhydrAMINE (BENADRYL) 25 mg capsule Take 1 capsule by mouth every 6 hours as needed for itching/rash. - glucose 4 gram chewable tablet Take 4 tablets by mouth as needed for low blood sugar. - lidocaine (LI (more content not included)... Normal [facility] ([id number]) 1980 F Date Time Provider Department 10/22/24 RODRI CHAUHAN During your visit today, we recorded the following information about you: Sylwia Marcial LPN 10/22/2024 11:53 AM Signed Fax was received denying patient's request for CPAP machine. Patient aware of same and to call back to schedule an office visit to discuss need for CPAP. Vandana Mathias LPN 10/29/2024 10:49 AM Signed Patient scheduled to see [facility]ING[facility]ENDER, 01/16/2025, added to discuss need for C-Pap. Vandana Mathias LPN Allergies As of Date: 10/22/2024 Noted Allergy Reaction PENICILLINS 08/24/2011 9 - Itching 4 - Hives MELATONIN 11/08/2016 2 - Rash 4 - Hives TRAMADOL 07/10/2013 14 - Other: See Comments Comments: tic like movements WELLBUTRIN (BUPROPION) 03/12/2019 5 - Intolerance Comments: Dry mouth--severe, intolerable Date Reviewed: 10/20/2024 Reviewed by: Preeti Kaba, MRI CT TECH.SENIOR TRAINER - Fully Assessed Reason for Visit: Appointment [186] Prescriptions as of 10/29/2024 - metFORMIN (GLUCOPHAGE) 500 mg tablet Take 2 tablets by mouth two times a day with meals. Take one additional 500 mg tab with breakfast or lunch until BS less than 250 - furosemide (LASIX) 40 mg tablet Take 1 tablet by mouth once daily. - SUMAtriptan (IMITREX) 25 mg tablet Take 1 tablet by mouth at onset of headache and may repeat in 2 hrs if needed. - promethazine (PHENERGAN) 12.5 mg tablet Take 1 tablet by mouth four times a day as needed for nausea/vomiting. - loratadine (CLARITIN) 10 mg tablet Take 1 tablet by mouth once daily. - cyclobenzaprine (FLEXERIL) 10 mg tablet Take 1 tablet by mouth three times a day as needed for muscle spasm. May make drowsy - mometasone-formoterol (DULERA) 50-5 mcg/actuation HFA aerosol inhaler Inhale 1 Puff as instructed two times a day. Rinse mouth out after use. - dulaglutide (TRULICITY) 0.75 mg/0.5 mL pen injector Inject 0.75 mg subcutaneously one time a week. Inject dose once per week. Discard Pen After - celecoxib (CELEBREX) 200 mg capsule Take 1 capsule by mouth once daily. Take with food - benzonatate (TESSALON PERLE) 100 mg capsule Take 1-2 capsules by mouth three times a day as needed. - glimepiride (AMARYL) 4 mg tablet Take 1 tablet by mouth daily with breakfast. Dose change, take one daily - montelukast (SINGULAIR) 10 mg tablet Take 1 tablet by mouth daily at bedtime. - albuterol HFA (VENTOLIN HFA) 90 mcg/actuation inhaler Inhale 2 Puffs as instructed every 4 hours as needed. - dulaglutide (TRULICITY) 1.5 mg/0.5 mL pen injector Inject 1.5 mg subcutaneously one time a week. Inject dose once per week. Discard Pen After - ferrous sulfate 325 mg (65 mg iron) tablet Take 1 tablet by mouth every Sunday, Sunday, and Sunday. - topiramate (TOPAMAX) 100 mg tablet Take 1 tablet by mouth two times a day. - lansoprazole (PREVACID) 30 mg capsule Take 1 capsule by mouth daily before breakfast. - pramipexole (MIRAPEX) 1.5 mg tablet Take 1 tablet by mouth daily at bedtime. - QUEtiapine (SEROQUEL) 25 mg tablet Take 75 mg by mouth daily at bedtime. - CPAP Needs replacement CPAP @ 15 cm of water with humidification. Mask (per patient preference) optional chin strap (if indicated) , filters, tubing, humidifier and lifetime supplies. G47.33 MARIA TERESA on CPAP - lamoTRIgine (LAMICTAL) 200 mg tablet Take 1 tablet by mouth two times a day. - diphenhydrAMINE (BENADRYL) 25 mg capsule Take 1 capsule by mouth every 6 hours as needed for itching/rash. - glucose 4 gram chewable tablet Take 4 tablets by mouth as needed for low blood sugar. - lidocaine (LIDODERM) 5 % Apply 1 Patch as directed every 24 hours. Remove after 12 hours. - Lancets Test blood sugar(s) once times daily. Dx: Type 2 DM - Controlled E11.9 Insulin: No - blood sugar diagnostic (BLOOD GLUCOSE TEST) test strip Test blood sugar(s) one time daily. Dx: Type 2 DM - Controlled E11.9 Insulin: No - silver sulfADIAZINE (SILVADENE) 1 % cream Apply 1 application to affected area once daily. - Albuterol Sulfate 1.25 mg/3 mL nebulizer solution Use 1 Ampule via nebulizer every 4 hours as needed for wheezing/shortness of breath. - ARIPiprazole (ABILIFY) 5 mg tablet Take 1 tablet by mouth once daily. - [employer] LITE monitoring kit USE DIRECTED - CPAP Needs lifetime supplies (mask, hoses, headgear, filters, water chamber) G47.33 (already has CPAP) - LORazepam (ATIVAN) 1 mg tablet Take 1 tablet by mouth twice daily. As needed. - Nebulizer NEBULIZER and Supplies FOR HOME USE. DX: J45.40 - citalopram (CELEXA) 40 mg tablet Take 40 mg by mouth once daily. [facility] Problem List As Of Date 10/22/2024 Noted Resolved Asthma [J45.909] Allergic rhinitis [J30.9] Migraine without aura [G43.009] 03/29/2006 Supervision of other normal [Z34.80] 08/31/20 (more content not included)... Normal [facility] CNPNon 10-21-2024 NARENDRAN Telephone (SHARA) NANCI RODRIGUEZ ([id number]) 1980 F Date Time Provider Department 10/21/24 JORGE DRISCOLL During your visit today, we recorded the following information about you: Loretta De La Vega 10/21/2024 8:13 AM Signed Please review and advise CONSULT TO HEMATOLOGY Status: Needs Scheduling Requested appt date: Authorizing: Preeti Kaba APRN.SENIOR TRAINER in [facility] Referral: [id number] (Authorized) Expires: 10/20/2025 Priority: Routine Diagnosis: Thrombocytopenia (HCC) [D69.6] Ashley Graham LPN 10/21/2024 9:03 AM Signed Schedule next available with pt. Ashley GrahamELEAZAR Stephanie Razo 10/22/2024 9:42 AM Signed Spoke w pt and she is scheduled w Dr Driscoll. Stephanie Razo Nicklin Pss, Loretta 11/28/2024 8:47 AM Signed Patient canceled, then no showed. Message left for patient if she wants to reschedule. Stephanie Razo 11/28/2024 11:21 AM Signed Pt called back and rescheduled w Dr Driscoll 12/12, new pt. The abdomen is soft without tenderness, guarding, mass or organomegaly. Bowel sounds are normal. No CVA tenderness or inguinal adenopathy noted. Allergies As of Date: 10/21/2024 Noted Allergy Reaction PENICILLINS 08/24/2011 9 - Itching 4 - Hives MELATONIN 11/08/2016 2 - Rash 4 - Hives TRAMADOL 07/10/2013 14 - Other: See Comments Comments: tic like movements WELLBUTRIN (BUPROPION) 03/12/2019 5 - Intolerance Comments: Dry mouth--severe, intolerable Date Reviewed: 10/20/2024 Reviewed by: Preeti Kaba, MRI CT TECH.SENIOR TRAINER - Fully Assessed Reason for Visit: New Patient [172] Prescriptions as of 11/28/2024 - cyclobenzaprine (FLEXERIL) 10 mg tablet Take 1 tablet by mouth three times a day as needed for muscle spasm. May make drowsy - blood sugar diagnostic (BLOOD GLUCOSE TEST) test strip Test blood sugar(s) one time daily. Dx: Type 2 DM - Controlled E11.9 Insulin: No. Uses True Metrix test strips. - metFORMIN (GLUCOPHAGE) 500 mg tablet Take 2 tablets by mouth two times a day with meals. Take one additional 500 mg tab with breakfast or lunch until BS less than 250 - furosemide (LASIX) 40 mg tablet Take 1 tablet by mouth once daily. - SUMAtriptan (IMITREX) 25 mg tablet Take 1 tablet by mouth at onset of headache and may repeat in 2 hrs if needed. - promethazine (PHENERGAN) 12.5 mg tablet Take 1 tablet by mouth four times a day as needed for nausea/vomiting. - loratadine (CLARITIN) 10 mg tablet Take 1 tablet by mouth once daily. - mometasone-formoterol (DULERA) 50-5 mcg/actuation HFA aerosol inhaler Inhale 1 Puff as instructed two times a day. Rinse mouth out after use. - dulaglutide (TRULICITY) 0.75 mg/0.5 mL pen injector Inject 0.75 mg subcutaneously one time a week. Inject dose once per week. Discard Pen After - celecoxib (CELEBREX) 200 mg capsule Take 1 capsule by mouth once daily. Take with food - benzonatate (TESSALON PERLE) 100 mg capsule Take 1-2 capsules by mouth three times a day as needed. - glimepiride (AMARYL) 4 mg tablet Take 1 tablet by mouth daily with breakfast. Dose change, take one daily - montelukast (SINGULAIR) 10 mg tablet Take 1 tablet by mouth daily at bedtime. - albuterol HFA (VENTOLIN HFA) 90 mcg/actuation inhaler Inhale 2 Puffs as instructed every 4 hours as needed. - dulaglutide (TRULICITY) 1.5 mg/0.5 mL pen injector Inject 1.5 mg subcutaneously one time a week. Inject dose once per week. Discard Pen After - ferrous sulfate 325 mg (65 mg iron) tablet Take 1 tablet by mouth every Sunday, Sunday, and Sunday. - topiramate (TOPAMAX) 100 mg tablet Take 1 tablet by mouth two times a day. - lansoprazole (PREVACID) 30 mg capsule Take 1 capsule by mouth daily before breakfast. - pramipexole (MIRAPEX) 1.5 mg tablet Take 1 tablet by mouth daily at bedtime. - QUEtiapine (SEROQUEL) 25 mg tablet Take 75 mg by mouth daily at bedtime. - CPAP Needs replacement CPAP @ 15 cm of water with humidification. Mask (per patient preference) optional chin strap (if indicated) , filters, tubing, humidifier and lifetime supplies. G47.33 MARIA TERESA on CPAP - lamoTRIgine (LAMICTAL) 200 mg tablet Take 1 tablet by mouth two times a day. - diphenhydrAMINE (BENADRYL) 25 mg capsule Take 1 capsule by mouth every 6 hours as needed for itching/rash. - glucose 4 gram chewable tablet Take 4 tablets by mouth as needed for low blood sugar. - lidocaine (LIDODERM) 5 % Apply 1 Patch as directed every 24 hours. Remove after 12 hours. - Lancets Test blood sugar(s) once times daily. Dx: Type 2 DM - Controlled E11.9 Insulin: No - silver sulfADIAZINE (SILVADENE) 1 % cream Apply 1 application to affected area once daily. - Albuterol Sulfate 1.25 mg/3 mL nebulizer solution Use 1 Ampule via nebulizer every 4 hours as needed for wheezing/shortness of breath. - ARIPiprazole (ABILIFY) 5 mg tablet Take 1 tablet by mouth once daily. - FREESTYLE FREEDOM LI (more content not included)... Normal [facility] CNOVon 10-20-2024 CNOV Office Visit (INTMWS ) NANCI RODRIGUEZ ([id number]) 1980 F Date Time Provider Department 10/20/24 2:40 PM PREETI KABA INTMWS During your visit today, we recorded the following information about you: Pulse Respiration Blood pressure Weight 96/minute 14/minute 132/74 171 kg Preeti Kaba, MRI CT TECH[facility] 10/20/2024 3:31 PM Signed CC: Patient presents with: Musculoskeletal Problem: Bilateral hand/fingers x 1 month Nose Problem: Blood on kleenex x 1 day HPI Nanci Rodriguez is a 44 year old female who presents today for above. Patient states she blew her nose yesterday and noted mucus was bloody. Since then she has seen a couple dark red flecks of blood when she blows her nose. Denies active nosebleed. She is not on blood thinners. Thrombocytopenia noted on labs for the past three years. She denies any other unusual bleeding or easy bruising. Fingers on both hands numb/tingly (3rd to 5th fingers) x 1 month. Associated with occasional left wrist pain. She denies weakness, loss of cable weaver strength, inability to hold or grasp things in her hands, injury, repetitive movements such as keyboarding. Diabetes: checking her blood sugars three times a day, average around 200. Trulicity was recently on hold due to patient concerns about possible seizure side effects. This was just re-ordered, will be starting back at 0.75 mg weekly. Next eye appointment in February. Sees podiatry routinely. MARIA TERESA: Is compliant with CPAP. No changes in settings. Machine is outdated, needs a new one. Denies snoring, un-refreshed sleep, insomnia, excessive daytime drowsiness. Anemia: taking iron pills. Denies dizziness, lightheadedness, feeling faint, syncope. Review of Systems Constitutional: Negative for chills, diaphoresis, fatigue, fever and unexpected weight change. Respiratory: Negative for cough, shortness of breath and wheezing. Cardiovascular: Negative for chest pain, palpitations and leg swelling. Gastrointestinal: Negative for anal bleeding and blood in stool. Genitourinary: Negative for hematuria. Neurological: Negative for dizziness, tremors, syncope, weakness, light-headedness and headaches. Hematological: Negative for adenopathy. PAST MEDICAL HISTORY Diagnosis Date Abnormal glandular Papanicolaou smear of cervix 2004 Abn. Pap smear (cervix) Allergic rhinitis, cause [...] 11/07/2006 Right hip pain 12/15/2013 Unspecified asthma(493.90) PAST SURGICAL HISTORY Procedure Laterality Date BACK SURGERY HX Pain block COLONOSCOPY W/BIOPSY SINGLE/MULTIPLE 10/22/2017 EGD TRANSORAL BIOPSY SINGLE/MULTIPLE 10/22/2017 RPR UMBILICAL HRNA 5 YRS/> REDUCIBLE 10/05/[address] mesh VAGINOSCOPY ALLERGIES Penicillins, Melatonin, Tramadol, and Wellbutrin [Bupropion] MEDICATIONS promethazine (PHENERGAN) 12.5 mg tablet Take 1 tablet by mouth four times a day as needed for nausea/vomiting. loratadine (CLARITIN) 10 mg tablet Take 1 tablet by mouth once daily. cyclobenzaprine (FLEXERIL) 10 mg tablet Take 1 tablet by mouth three times a day as needed for muscle spasm. May make drowsy mometasone-formoterol (DULERA) 50-5 mcg/actuation HFA aerosol inhaler Inhale 1 Puff as instructed two times a day. Rinse mouth out after use. dulaglutide (TRULICITY) 0.75 mg/0.5 mL pen injector Inject 0.75 mg subcutaneously one time a week. Inject dose once per week. Discard Pen After celecoxib (CELEBREX) 200 mg capsule Take 1 capsule by mouth once daily. Take with food benzonatate (TESSALON PERLE) 100 mg capsule Take 1-2 capsules by mouth three times a day as needed. glimepiride (AMARYL) 4 mg tablet Take 1 tablet by mouth daily with breakfast. Dose change, take one daily montelukast (SINGULAIR) 10 mg tablet Take 1 tablet by mouth daily at bedtime. albuterol HFA (VENTOLIN HFA) 90 mcg/actuation inhaler Inhale 2 Puffs as instructed every 4 hours as needed. dulaglutide (TRULICITY) 1.5 mg/0.5 mL pen injector Inject 1.5 mg subcutaneously one time a week. Inject dose once per week. Discard Pen After ferrous sulfate 325 mg (65 mg iron) tablet Take 1 tablet by mouth every Sunday, Sunday, and Sunday. topiramate (TOPAMAX) 100 mg tablet Take 1 tablet by mouth two times a day. lansoprazole (PREVACID) 30 mg capsule Take 1 capsule by mouth daily before breakfast. pramipexole (MIRAPEX) 1.5 mg tablet Take 1 tablet by mouth daily at bedtime. QUEtiapine (SEROQU (more content not included)... Normal [facility] Jed 10-20-2024 [facility] Telephone (INTWS) NANCI RODRIGUEZ ([id number]) 1980 F Date Time Provider Department 10/20/24 PREETI KABA INTMWS During your visit today, we recorded the following information about you: Preeti Kaba APRN.NARENDRA 10/20/2024 3:16 PM Signed Please let the patient know after reviewing her labs in more detail and comparing to previous labs her platelets are still low despite anemia improved. Highly recommend referral to avionics integration engineer for further evaluation. Preeti Kaba APRN.Helen Mendez, TAZ 10/20/2024 3:26 PM Signed Attempted to contact pt with no answer and msg stating person you are trying to call is not available right now, please try your call again later. LM on pt's mother's phone to have pt return the call to us. Marielena Nogueira RN 10/20/2024 3:52 PM Signed Patient returned call. Given message below and patient agreeable to see Hematology. Pt did not chose to be transferred to a armored car driver at this time, stated she would call back in. Marielena Nogueira RN Allergies As of Date: 10/20/2024 Noted Allergy Reaction PENICILLINS 08/24/2011 9 - Itching 4 - Hives MELATONIN 11/08/2016 2 - Rash 4 - Hives TRAMADOL 07/10/2013 14 - Other: See Comments Comments: tic like movements WELLBUTRIN (BUPROPION) 03/12/2019 5 - Intolerance Comments: Dry mouth--severe, intolerable Date Reviewed: 10/20/2024 Reviewed by: Preeti Kaba, MARIJA.SENIOR TRAINER - Fully Assessed Primary Visit Diagnosis:Thrombocyto penia (HCC) [D69.6] Order(s):CONSULT TO HEMATOLOGY [9014] Order #: [id number]: 1 FUTURE Prescriptions as of 10/20/2024 - furosemide (LASIX) 40 mg tablet Take 1 tablet by mouth once daily. - SUMAtriptan (IMITREX) 25 mg tablet Take 1 tablet by mouth at onset of headache and may repeat in 2 hrs if needed. - promethazine (PHENERGAN) 12.5 mg tablet Take 1 tablet by mouth four times a day as needed for nausea/vomiting. - loratadine (CLARITIN) 10 mg tablet Take 1 tablet by mouth once daily. - cyclobenzaprine (FLEXERIL) 10 mg tablet Take 1 tablet by mouth three times a day as needed for muscle spasm. May make drowsy - mometasone-formoterol (DULERA) 50-5 mcg/actuation HFA aerosol inhaler Inhale 1 Puff as instructed two times a day. Rinse mouth out after use. - dulaglutide (TRULICITY) 0.75 mg/0.5 mL pen injector Inject 0.75 mg subcutaneously one time a week. Inject dose once per week. Discard Pen After - celecoxib (CELEBREX) 200 mg capsule Take 1 capsule by mouth once daily. Take with food - benzonatate (TESSALON PERLE) 100 mg capsule Take 1-2 capsules by mouth three times a day as needed. - glimepiride (AMARYL) 4 mg tablet Take 1 tablet by mouth daily with breakfast. Dose change, take one daily - montelukast (SINGULAIR) 10 mg tablet Take 1 tablet by mouth daily at bedtime. - albuterol HFA (VENTOLIN HFA) 90 mcg/actuation inhaler Inhale 2 Puffs as instructed every 4 hours as needed. - dulaglutide (TRULICITY) 1.5 mg/0.5 mL pen injector Inject 1.5 mg subcutaneously one time a week. Inject dose once per week. Discard Pen After - ferrous sulfate 325 mg (65 mg iron) tablet Take 1 tablet by mouth every Sunday, Sunday, and Sunday. - topiramate (TOPAMAX) 100 mg tablet Take 1 tablet by mouth two times a day. - lansoprazole (PREVACID) 30 mg capsule Take 1 capsule by mouth daily before breakfast. - pramipexole (MIRAPEX) 1.5 mg tablet Take 1 tablet by mouth daily at bedtime. - QUEtiapine (SEROQUEL) 25 mg tablet Take 75 mg by mouth daily at bedtime. - CPAP Needs replacement CPAP @ 15 cm of water with humidification. Mask (per patient preference) optional chin strap (if indicated) , filters, tubing, humidifier and lifetime supplies. G47.33 MARIA TERESA on CPAP - lamoTRIgine (LAMICTAL) 200 mg tablet Take 1 tablet by mouth two times a day. - diphenhydrAMINE (BENADRYL) 25 mg capsule Take 1 capsule by mouth every 6 hours as needed for itching/rash. - glucose 4 gram chewable tablet Take 4 tablets by mouth as needed for low blood sugar. - lidocaine (LIDODERM) 5 % Apply 1 Patch as directed every 24 hours. Remove after 12 hours. - Lancets Test blood sugar(s) once times daily. Dx: Type 2 DM - Controlled E11.9 Insulin: No - blood sugar diagnostic (BLOOD GLUCOSE TEST) test strip Test blood sugar(s) one time daily. Dx: Type 2 DM - Controlled E11.9 Insulin: No - metFORMIN (GLUCOPHAGE) 500 mg tablet Take 2 tablets by mouth two times a day with meals. Take one additional 500 mg tab with breakfast or lunch until BS less than 250 - silver sulfADIAZINE (SILVADENE) 1 % cream Apply 1 application to affected area once daily. - Albuterol Sulfate 1.25 mg/3 mL nebulizer solution Use 1 Ampule via nebulizer every 4 hours as needed for wheezing/shortness of breath. - ARIPiprazole (ABILIFY) 5 mg tablet Take 1 tablet by mouth once daily. - FREESTYLE FREEDOM LITE monitoring kit USE DIRECTED - C (more content not included)... Normal [facility] CBC panel Auto (Bld)on 10-17 Erythrocyte distribution width (RBC) [Ratio] 20.4 % High 11.5-15.0 [facility] Comment on above: Order Comment: Speci men Type: BLOOD SPECIMENOrdering Facility: [facility] Address: [address] [place] [address] Performed By: #### 5 8410-2 ####[facility] LABCLIA [id number] [facility] [id number] [address] [place] Hematocrit (Bld) [Volume fraction] 40.5 % Normal 36.0-46.0 [facility] Comment on above: Order Comment: Speci men Type: BLOOD SPECIMENOrdering Facility: [facility] Address: [address] [place] [address] Performed By: #### 5 8410-2 ####[facility] LABCLIA [id number] [place] [address] [place] Hemoglobin (Bld) [Mass/Vol] 11.8 g/dL Normal 11.5-15.5 [facility] Comment on above: Order Comment: Speci men Type: BLOOD SPECIMENOrdering Facility: [facility] Address: [address] [place] [address] Performed By: #### 5 8410-2 ####[facility] [id number] [place] [address] [place] MCH (RBC) [Entitic mass] 23.0 pg Low 26.0-34.0 [facility] Comment on above: Order Comment: Speci men Type: BLOOD SPECIMENOrdering Facility: [facility] Address: [address] [place] [address] Performed By: #### 5 8410-2 ####[facility] [id number] [place] [address] [place] MCHC (RBC) [Mass/Vol] 29.1 g/dL Low 30.5-36.0 [facility] Comment on above: Order Comment: Speci men Type: BLOOD SPECIMENOrdering Facility: [facility] Address: [address] [place] [address] Performed By: #### 5 8410-2 ####[facility] [id number] [place] [address] [place] MCV (RBC) [Entitic vol] 79.1 fL Low 80.0-100.0 C [facility] Comment on above: Order Comment: Speci men Type: BLOOD SPECIMENOrdering Facility: [facility] Address: [address] [place] [address] Performed By: #### 5 8410-2 ####[facility] [id number] [place] [address] [place] Nucleated RBC (Bld) [#/Vol] 10*3/uL Normal <0.01 [facility] Comment on above: Order Comment: Speci men Type: BLOOD SPECIMENOrdering Facility: [facility] Address: [address] [place] [address] Performed By: #### 5 8410-2 ####[facility] LABIA [id number] [place] [address] [place] Platelet mean volume (Bld) [Entitic vol] 9.9 fL Normal 9.0-12.7 [facility] Comment on above: Order Comment: Speci men Type: BLOOD SPECIMENOrdering Facility: [facility] Address: [address] [place] [address] Performed By: #### 5 8410-2 ####[facility] LABIA [id number] [place] [address] [place] Platelets (Bld) [#/Vol] 100 10*3/uL Low 150-400 [facility] Comment on above: Order Comment: Speci men Type: BLOOD SPECIMENOrdering Facility: [facility] Address: [address] [place] [address] Result Comment: No c lot detected. Performed By: #### 5 8410-2 ####[facility] LABIA [id number] [place] [address] [place] RBC (Bld) [#/Vol] 5.12 10*6/uL Normal 3.90-5.20 [facility] Comment on above: Order Comment: Speci men Type: BLOOD SPECIMENOrdering Facility: [facility] Address: [address] [place] [address] Performed By: #### 5 8410-2 ####[facility] LABIA [id number] [place] [address] [place] WBC (Bld) [#/Vol] 3.43 10*3/uL Low 3.70-11.00 [facility] Comment on above: Order Comment: Speci men Type: BLOOD SPECIMENOrdering Facility: [facility] Address: [address] [place] [address] Performed By: #### 5 8410-2 ####[facility] LABEVELYN [id number] [address] [place] [place] [address] [place] CNOVon 10-17-2024 CNOV Office Visit (INTMWS ) NANCI RODRIGUEZ ([id number]) 1980 F Date Time Provider Department 10/17/24 2:40 PM JOHNSON RM INTMWS During your visit today, we recorded the following information about you: Pulse Respiration Blood pressure Weight 97/minute 16/minute 138/89 169 kg Johnson Rm, MARIJA.SENIOR SHAREPOINT ARCHITECT 10/17/2024 4:53 PM Signed SUBJECTIVE: Mammogram Screening Never done LDL Cholesterol due on 03/06/2024 HbA1C due on 07/23/2024 Dilated Retinal Exam due on 11/01/2024 HPI Nanci Rodriguez is a 42 year old female. PMH [...] Ldl Less Than 100 Restless Leg Syndrome Obesity, Class III, BMI >= 40 Cpap (Continuous Positive Airway Pressure) Dependence Presents for a routine visit today. Reports since she was last seen that she had tic-like behaviors of the upper extremities. Involutary, did not lose conciousness. Observed by fmily member. This is attributed to tramadol so it was discontinued. Concern of possible adverse effect of dulaglutide so this was also held.She reports no recurrence since discontinuing medications. Today notes that she has had increased coughing, asthma with worse control. Not currently using maintenance inhaler as she is concerned about getting thrush. DIABETES MELLITUS: Has lost 22lbs since May on dulaglutide and other medications. The dulaglutide has been held recently, but did take about 2 of 3 months.excessive thirst or increased frequency of urination, chest pain or dyspnea , numbness, tingling or pain in extremities, new or unusual visual symptoms, low sugar/hypoglycemic reactions, weight loss/gain, lightheadedness/dizzi ness, and bowel changes/loose stools. Patient's last HgA1C was Hemoglobin A1C (%) Date Value 04/22/2024 10.7 09/21/2023 7.3 02/02/2021 11.2 01/03/2021 12.6 ) Would like alternate for chronic back pain for which she was taking tramadol. Review of Systems Constitutional: Negative. Respiratory: Negative. Cardiovascular: Negative. Endocrine: Negative. Musculoskeletal: Positive for back pain. Objective BP 138/89 Pulse 97 Resp 16 Wt (!) 169 kg (372 lb 9.2 oz) LMP 04/24/2024 (Approximate) BMI 64.96 kg/m? Physical Exam Vitals and nursing note reviewed. Constitutional: Appearance: Normal appearance. HENT: Head: Normocephalic and atraumatic. Eyes: Conjunctiva/sclera: Conjunctivae normal. Cardiovascular: Rate and Rhythm: Normal rate and regular rhythm. Heart sounds: Normal heart sounds. Pulmonary: Effort: Pulmonary effort is normal. Breath sounds: Normal breath sounds. Musculoskeletal: Lumbar back: Tenderness present. Decreased range of motion. Skin: General: Skin is warm and dry. Neurological: General: No focal deficit present. Mental Status: She is alert and oriented to person, place, and time. ALLERGIES Allergen Reactions Penicillins Itching, Hives Melatonin Rash, Hives Wellbutrin [Bupropi* Intolerance Dry mouth--severe, intolerable Medications glimepiride (AMARYL) 4 mg tablet Take 1 tablet by mouth daily with breakfast. Dose change, take one daily montelukast (SINGULAIR) 10 mg tablet Take 1 tablet by mouth daily at bedtime. cyclobenzaprine (FLEXERIL) 10 mg tablet Take 1 tablet by mouth three times a day as needed for muscle spasm. May make drowsy albuterol HFA (VENTOLIN HFA) 90 mcg/actuation inhaler Inhale 2 Puffs as instructed every 4 hours as needed. ferrous sulfate 325 mg (65 mg iron) tablet Take 1 tablet by mouth every Sunday, Sunday, and Sunday. topiramate (TOPAMAX) 100 mg tablet Take 1 tablet by mouth two times a day. lansoprazole (PREVACID) 30 mg capsule Take 1 capsule by mouth daily before breakfast. pramipexole (MIRAPEX) 1.5 mg tablet Take 1 tablet by mouth daily at bedtime. QUEtiapine (SEROQUEL) 25 mg tablet Take 75 mg by mouth daily at bedtime. CPAP Needs replacement CPAP @ 15 cm of water with humidification. Mask (per patient preference) optional chin strap (if indicated) , filters, tubing, humidifier and lifetime supplies. G47.33 MARIA TERESA on CPAP furosemide (LASIX) 40 mg tablet Take 1 tablet by mouth once daily. lamoTRIgine (LAMICTAL) 200 mg tablet Take 1 tablet by mouth two times a day. diphenhydrAMINE (BENADRYL) 25 mg capsule Take 1 capsule by mouth every 6 hours as needed for itching/rash. SUMAtriptan (IMITREX) 25 mg tablet Take 1 tablet by mouth at onset of headache and may (more content not included)... Normal [facility] Comprehensive metabolic 2000 panelon 10-17-2024 Albumin [Mass/Vol] 3.7 g/dL Low 3.9-4.9 [facility] Comment on above: Order Comment: Speci men Type: BLOOD SPECIMENOrdering Facility: [facility] Address: [address] [place] [address] Performed By: #### 2 4323-8 ####[facility] LABCLIA [id number] [place] [address] [place] ALP [Catalytic activity/Vol] 136 U/L High 34-123 [facility] Comment on above: Order Comment: Speci men Type: BLOOD SPECIMENOrdering Facility: [facility] Address: [address] [place] [address] Performed By: #### 2 4323-8 ####[facility] LABCLIA [id number] [place] [id number] [place] ALT [Catalytic activity/Vol] 31 U/L Normal 7-38 [facility] Comment on above: Order Comment: Speci men Type: BLOOD SPECIMENOrdering Facility: [facility] Address: [address] [place], [place] [address] Performed By: #### 2 4323-8 ####[facility] LABCLIA [id number] [place] [address] [place] Anion gap [Moles/Vol] 9 mmol/L Normal 8-15 [facility] Comment on above: Order Comment: Speci men Type: BLOOD SPECIMENOrdering Facility: [facility] Address: [address] [place] [address] Performed By: #### 2 4323-8 ####[facility] LABCLIA [id number] [place] [address] [place] AST [Catalytic activity/Vol] 31 U/L Normal 13-35 [facility] Comment on above: Order Comment: Speci men Type: BLOOD SPECIMENOrdering Facility: [facility] Address: [address] [place], [place] [address] Performed By: #### 2 4323-8 ####[facility] LABCLIA [id number] [place] [address] [place] Bilirubin [Mass/Vol] 0.3 mg/dL Normal 0.2-1.3 [facility] Comment on above: Order Comment: Speci men Type: BLOOD SPECIMENOrdering Facility: [facility] Address: [address] [place], [place] [address] Performed By: #### 2 4323-8 ####[facility] LABCLIA [id number] [place] [id number] [place] Calcium [Mass/Vol] 9.1 mg/dL Normal 8.5-10.2 [facility] Comment on above: Order Comment: Speci men Type: BLOOD SPECIMENOrdering Facility: [facility] Address: [address] [place] [address] Performed By: #### 2 4323-8 ####[facility] LABCLIA [id number] [place] [address] [place] Chloride [Moles/Vol] 104 mmol/L Normal 98-107 [facility] Comment on above: Order Comment: Speci men Type: BLOOD SPECIMENOrdering Facility: [facility] Address: [address] [place] [address] Performed By: #### 2 4323-8 ####[facility] LABCLIA [id number] [place] [address] [place] CO2 [Moles/Vol] 24 mmol/L Normal 22-30 [facility] Comment on above: Order Comment: Speci men Type: BLOOD SPECIMENOrdering Facility: [facility] Address: [address] [place] [address] Performed By: #### 2 4323-8 ####[facility] LABCLIA [id number] [place] [address] [place] Creatinine [Mass/Vol] 0.54 mg/dL Low 0.58-0.96 [facility] Comment on above: Order Comment: Speci men Type: BLOOD SPECIMENOrdering Facility: [facility] Address: [address] [place] [address] Performed By: #### 2 4323-8 ####[facility] LABCLIA [id number] [place] [address] [place] Creatinine and Glomerular filtration rate.predicted panel (S/P/Bld) 117 mL/min/1.73m??? Normal >=60 [facility] Comment on above: Order Comment: Speci men Type: BLOOD SPECIMENOrdering Facility: [facility] Address: [address] [place] [address] Result Comment: Angela mated Glomerular Filtration Rate (eGFR) is calculated using the 2020 CKD-EPI creatinine equation. This equation utilizes serum creatinine, sex, and age as parameters. The creatinine assay has traceable calibration to isotope dilution-mass spectrometry. Refer to KDIGO guidelines for clinical interpretation. In patients with unstable renal function, e.g. those with acute kidney injury, the eGFR may not accurately reflect actual GFR. Performed By: #### 2 4323-8 ####[facility] LABCLIA [id number] [place] [address] [place] Glucose [Mass/Vol] 263 mg/dL High 74-99 [facility] Comment on above: Order Comment: Mitzi banda Type: BLOOD SPECIMENOrdering Facility: [facility] Address: [address] [place] [address] Result Comment: The [place] Diabetes [employer] (ADA) provides guidance for cutoff values for fasting glucose and random glucose. The ADA defines fasting as no caloric intake for at least 8 hours. Fasting plasma glucose results between 100 to 125 mg/dL indicate increased risk for diabetes (prediabetes). Fasting plasma glucose results greater than or equal to 126 mg/dL meet the criteria for diagnosis of diabetes. In the absence of unequivocal hyperglycemia, results should be confirmed by repeat testing. In a patient with classic symptoms of hyperglycemia or hyperglycemic crisis, random plasma glucose results greater than or equal to 200 mg/dL meet the criteria for diagnosis of diabetes. Reference: Standards of Medical Care in Diabetes 2016, [place] [employer]. Diabetes Care. 2016.39(Suppl 1). Performed By: #### 2 4323-8 ####[facility] LABIA [id number] [place] [address] [place] Potassium [Moles/Vol] 4.0 mmol/L Normal 3.7-5.1 [facility] Comment on above: Order Comment: Mitzi banda Type: BLOOD SPECIMENOrdering Facility: [facility] Address: [address] [place] [place] [id number] Performed By: #### 2 4323-8 ####[facility] LABCLIA [id number] [place] [address] [place] Protein [Mass/Vol] 7.6 g/dL Normal 6.3-8.0 [facility] Comment on above: Order Comment: Speci men Type: BLOOD SPECIMENOrdering Facility: [facility] Address: [address] [place] [address] Performed By: #### 2 4323-8 ####[facility] LABCLIA [id number] [place] [address] [place] Sodium [Moles/Vol] 137 mmol/L Normal 136-144 [facility] Comment on above: Order Comment: Speci men Type: BLOOD SPECIMENOrdering Facility: [facility] Address: [address] [place] [address] Performed By: #### 2 4323-8 ####[facility] LABCLIA [id number] [place] [address] [place] Urea nitrogen [Mass/Vol] 13 mg/dL Normal 7-21 [facility] Comment on above: Order Comment: Speci men Type: BLOOD SPECIMENOrdering Facility: [facility] Address: [address] [place] [address] Performed By: #### 2 4323-8 ####[facility] LABCLIA [id number] [place] [address] [place] HbA1c (Bld)on 10-17-2024 Average glucose Estimated from glycated hemoglobin (Bld) [Mass/Vol] 217 mg/dL Normal [facility] Comment on above: Order Comment: Speci men Type: BLOOD SPECIMENOrdering Facility: [facility] Address: [address] [place] [address] Result Comment: eAG: (Estimated average glucose) is a calculated value from HgbA1c and is community representative of the average blood glucose level in the last 2-3 month period. Performed By: #### 5 5454-3 ####[facility] LABCLIA [id number] [place] [address] [place] HbA1c (Bld) [Mass fraction] 9.2 % High 4.3-5.6 [facility] Comment on above: Order Comment: Speci men Type: BLOOD SPECIMENOrdering Facility: [facility] Address: [address] [place] [address] Result Comment: [place] Diabetes Association guidelines indicate that patients with HgbA1c in the range 5.7-6.4% are at increased risk for development of diabetes, and intervention by lifestyle modification may be beneficial. HgbA1c greater or equal to 6.5% is considered diagnostic of diabetes. Performed By: #### 5 5454-3 ####[facility] LABCLIA [id number] [place]eline AV[place]K [place] [id number] [place] [facility] MR/BMS.Nelli 09-18-2024 MR/BMSKEVIN [facility] Vascular Surgery [address] [place] [address] OFFICE VISIT Date of Service: 09/18/24 MR#: [id number] Acct: [id number] Name: NANCI RODRIGUEZ Rep #: [id number] : 1980 Provider: Dr. Miles Littlejohn MD Age/Sex: 44/F Location[place] [facility] [place] Status: Signed Intake Vital Signs 07/17/24 13:53 08/12/24 14:00 09/18/24 15:44 Height 5 ft 3 in 5 ft 3 in Weight: 377 lb BP 138/79 H Blood Pressure Location Lt brachial Position Sitting Respiration 16 Pulse 108 H Pulse Source Monitor Temp 97.4 F L Temp Source Temporal Pulse Oximetry (%) 96 Oxygen Delivery Method room air Intake Visit Reasons: ARTERIAL DISEASE W/ NON-HEALING ULCER Is patient in pain?: Yes Allergies amoxicillin (From Augmentin) Allergy (Intermediate, Verified 09/18/24 15:45) Hives clavulanic acid (From Augmentin) Allergy (Intermediate, Verified 09/18/24 15:45) Hives melatonin Allergy (Verified 09/18/24 15:45) Hives Penicillins Allergy (Verified 09/18/24 15:45) Hives Medications ???Medication ???Instructions ???Recorded ???Confirmed ???Type loratadine 10 mg tablet (Allergy 10 mg PO DAILY Allergies 07/07/13 09/18/24 History Relief (loratadine)) lorazepam 1 mg tablet 1 mg PO BID PRN PRN Anxiety 12/11/13 09/18/24 History montelukast 10 mg tablet 10 mg PO QHS 08/10/16 09/18/24 History sumatriptan succinate 25 mg tablet 25 mg PO .X1 PRN PRN Migraine 08/10/16 09/18/24 History (Imitrex) Symptoms aripiprazole 2 mg tablet 5 mg PO QHS 07/01/19 09/18/24 History citalopram 40 mg tablet 40 mg PO DAILY 07/01/19 09/18/24 History lamotrigine 200 mg tablet 200 mg PO BID 07/01/19 09/18/24 History metformin 500 mg tablet 1,000 mg PO BID dm 07/01/19 09/18/24 History naproxen 500 mg tablet 500 mg PO BID PRN PRN Pain Or Fever 07/01/19 09/18/24 History topiramate 100 mg tablet 100 mg PO BID 07/01/19 09/18/24 History glimepiride 2 mg tablet 4 mg PO DAILY 11/08/19 09/18/24 History lansoprazole 30 mg capsule,delayed 30 mg PO DAILY #30 CAPSULES 12/30/20 09/18/24 Rx release albuterol sulfate 90 mcg/actuation 2 puff inhalation Q4H PRN PRN 09/07/22 09/18/24 Rx aerosol inhaler (Ventolin HFA) Wheezing ##1 ferrous sulfate 325 mg (65 mg 325 mg PO TID #90 tabs 09/07/22 09/18/24 Rx iron) tablet (FeroSul) furosemide 20 mg tablet 20 mg PO BID 09/07/22 09/18/24 History cyclobenzaprine 10 mg tablet 10 mg PO TID PRN Muscle Spasm #20 12/09/22 09/18/24 Rx TABLETS pramipexole 1.5 mg tablet (Mirapex) 1.5 mg PO QHS 09/25/23 09/18/24 History ascorbic acid (vitamin C) 1,000 mg 1 g PO DAILY 90 days #90 tabs 09/28/23 09/18/24 Rx tablet (Vitamin C) calcium 500 mg (as 1 tab PO DAILY 90 days #90 tabs 09/28/23 09/18/24 Rx carbonate)-vitamin D3 15 mcg (600 unit) tablet (Os-Wilfredo 500 + D3) cyclobenzaprine 10 mg tablet 10 mg PO TID 7 days #21 tabs 09/28/23 09/18/24 Rx docusate sodium 100 mg capsule 100 mg PO DAILY 10 days #10 caps 09/28/23 09/18/24 Rx (Colace) acetaminophen 500 mg tablet 1,000 mg (2 x 500 mg) PO Q6H PRN 03/09/24 09/18/24 Rx (Tylenol Extra Strength) pain 7 days #56 tabs benztropine 1 mg tablet 1 mg PO BID PRN PRN legs 03/09/24 09/18/24 History quetiapine 25 mg tablet (Seroquel) 25 mg PO DAILY 04/09/24 09/18/24 History sulfamethoxazole 800 1 tab PO BID 2 weeks #28 tabs 06/25/24 09/18/24 Rx mg-trimethoprim 160 mg tablet (Bactrim DS) amoxicillin 875 mg-potassium 1 tab PO BID 2 weeks #28 tabs 07/02/24 09/18/24 Rx clavulanate 125 mg tablet gentamicin 0.1 % topical ointment 1 applic topical TID #30 grams 07/02/24 09/18/24 Rx cephalexin 500 mg capsule 500 mg PO Q6 #20 CAPSULES 07/17/24 09/18/24 Rx Is last menstrual period known: Yes Post menopausal: No Patient : No Have you fallen in the past year?: Yes [facility] Medical History Open wound History of steroid therapy Diabetes Easy bruising Restless legs Migraine headache Wears glasses Cracked tooth Difficulty chewing GERD (gastroesophageal reflux disease) Electronic cigarette use CPAP (continuous positive airway pressure) dependence Shortness of breath on exertion History of stress test Anxiety Sleep apnea COPD (chronic obstructive pulmonary disease) Asthma Obesity Diabetes Bipolar 1 disorder Surgical History History of cardiac catheterization History of umbilical hernia repair ( 2016) History of herniorrhaphy Social History household members: none Smoking Status: Former smoker Tobacco: How many years used: 20 how long ago did patient quit smokin months substance use type: does not use HPI HPI HPI: NANCI PERES (more content not included)... [facility] 08-04-2024 [facility] Telephone (AGGENS4) NANCI RODRIGUEZ ([id number]) 1980 F Date Time Provider Department 08/04/24 FELECIA GLASER AGGENS4 During your visit today, we recorded the following information about you: Araseli Butt 08/04/2024 8:35 AM Signed Referral received. Attempt # 2 LVM for patient. MoPub message sent to patient. Allergies As of Date: 08/04/2024 Noted Allergy Reaction PENICILLINS 08/24/2011 9 - Itching 4 - Hives MELATONIN 11/08/2016 2 - Rash 4 - Hives WELLBUTRIN (BUPROPION) 03/12/2019 5 - Intolerance Comments: Dry mouth--severe, intolerable Date Reviewed: 07/01/2024 Reviewed by: Lizabeth Hurtado LPN - Fully Assessed Reason for Visit: Appointment [186] Prescriptions as of 08/04/2024 - dulaglutide (TRULICITY) 1.5 mg/0.5 mL pen injector Inject 1.5 mg subcutaneously one time a week. Inject dose once per week. Discard Pen After - ferrous sulfate 325 mg (65 mg iron) tablet Take 1 tablet by mouth every Sunday, Sunday, and Sunday. - cyclobenzaprine (FLEXERIL) 10 mg tablet Take 1 tablet by mouth three times a day as needed for muscle spasm. May make drowsy - topiramate (TOPAMAX) 100 mg tablet Take 1 tablet by mouth two times a day. - lansoprazole (PREVACID) 30 mg capsule Take 1 capsule by mouth daily before breakfast. - pramipexole (MIRAPEX) 1.5 mg tablet Take 1 tablet by mouth daily at bedtime. - QUEtiapine (SEROQUEL) 25 mg tablet Take 75 mg by mouth daily at bedtime. - CPAP Needs replacement CPAP @ 15 cm of water with humidification. Mask (per patient preference) optional chin strap (if indicated) , filters, tubing, humidifier and lifetime supplies. G47.33 MARIA TERESA on CPAP - furosemide (LASIX) 40 mg tablet Take 1 tablet by mouth once daily. - lamoTRIgine (LAMICTAL) 200 mg tablet Take 1 tablet by mouth two times a day. - diphenhydrAMINE (BENADRYL) 25 mg capsule Take 1 capsule by mouth every 6 hours as needed for itching/rash. - SUMAtriptan (IMITREX) 25 mg tablet Take 1 tablet by mouth at onset of headache and may repeat in 2 hrs if needed. - glucose 4 gram chewable tablet Take 4 tablets by mouth as needed for low blood sugar. - mometasone-formoterol (DULERA) 50-5 mcg/actuation HFA aerosol inhaler Inhale 1 Puff as instructed two times a day. - promethazine (PHENERGAN) 12.5 mg tablet Take 1 tablet by mouth four times a day as needed for nausea/vomiting. - lidocaine (LIDODERM) 5 % Apply 1 Patch as directed every 24 hours. Remove after 12 hours. - Lancets Test blood sugar(s) once times daily. Dx: Type 2 DM - Controlled E11.9 Insulin: No - montelukast (SINGULAIR) 10 mg tablet Take 1 tablet by mouth daily at bedtime. - blood sugar diagnostic (BLOOD GLUCOSE TEST) test strip Test blood sugar(s) one time daily. Dx: Type 2 DM - Controlled E11.9 Insulin: No - metFORMIN (GLUCOPHAGE) 500 mg tablet Take 2 tablets by mouth two times a day with meals. Take one additional 500 mg tab with breakfast or lunch until BS less than 250 - glimepiride (AMARYL) 4 mg tablet Take 1 tablet by mouth daily with breakfast. Dose change, take one daily - albuterol HFA (VENTOLIN HFA) 90 mcg/actuation inhaler Inhale 2 Puffs as instructed every 4 hours as needed. - Chlorhexidine Gluconate (PERIDEX) 0.12 % solution Use 15 mL as instructed two times a day. Rinse around mouth for 30 seconds then expectorate - silver sulfADIAZINE (SILVADENE) 1 % cream Apply 1 application to affected area once daily. - Albuterol Sulfate 1.25 mg/3 mL nebulizer solution Use 1 Ampule via nebulizer every 4 hours as needed for wheezing/shortness of breath. - bacitracin 500 unit/gram ointment APPLY TO THE AFFECTED AREA(S) EVERY DAY - ARIPiprazole (ABILIFY) 5 mg tablet Take 1 tablet by mouth once daily. - loratadine (CLARITIN) 10 mg tablet Take 1 tablet by mouth once daily. - [employer] LITE monitoring kit USE DIRECTED - CPAP Needs lifetime supplies (mask, hoses, headgear, filters, water chamber) G47.33 (already has CPAP) - LORazepam (ATIVAN) 1 mg tablet Take 1 tablet by mouth twice daily. As needed. - Nebulizer NEBULIZER and Supplies FOR HOME USE. DX: J45.40 - citalopram (CELEXA) 40 mg tablet Take 40 mg by mouth once daily. [facility] Problem List As Of Date 08/04/2024 Noted Resolved Asthma [J45.909] Allergic rhinitis [J30.9] Migraine without aura [G43.009] 03/29/2006 Supervision of other normal [Z34.80] 2006 12/12/2011 Supervision of other high-risk [O09.8*09/26/2006 12/12/2011 Personal history of pre-term labor [Z87.51] 11/07/2006 03/11/2018 LGSIL on Pap smear [R87.612] 12/26/2011 Mild dysplasia of cervix [N87.0] 12/26/2011 03/11/2018 Moderate depressed bipolar I disorder (HCC) [F3*12/26/2011 Chronic radicular low back pain [M54.16, G89.29]07/17/2012 Lumbar spondylosis [M47.816] 02/17/2013 DDD (degenerative disc diseas (more content not included)... Normal [facility] Jed 07-31-2024 NARENDRA Telephone (AGGENS4) LISBETHNANCI L ([id number]) 1980 F Date Time Provider Department 07/31/24 FELECIA GLASER AGGENS4 During your visit today, we recorded the following information about you: Araseli Butt 07/31/2024 8:18 AM Signed Referral received. Attempt # 1 LVM for patient. MoPub message sent to patient. Allergies As of Date: 07/31/2024 Noted Allergy Reaction PENICILLINS 08/24/2011 9 - Itching 4 - Hives MELATONIN 11/08/2016 2 - Rash 4 - Hives WELLBUTRIN (BUPROPION) 03/12/2019 5 - Intolerance Comments: Dry mouth--severe, intolerable Date Reviewed: 07/01/2024 Reviewed by: Lizabeth Hurtado LPN - Fully Assessed Reason for Visit: Appointment [186] Prescriptions as of 07/31/2024 - traMADol (ULTRAM) 50 mg tablet Take 1 tablet by mouth every 6 hours as needed for pain for up to 7 days. - dulaglutide (TRULICITY) 1.5 mg/0.5 mL pen injector Inject 1.5 mg subcutaneously one time a week. Inject dose once per week. Discard Pen After - ferrous sulfate 325 mg (65 mg iron) tablet Take 1 tablet by mouth every Sunday, Sunday, and Sunday. - cyclobenzaprine (FLEXERIL) 10 mg tablet Take 1 tablet by mouth three times a day as needed for muscle spasm. May make drowsy - topiramate (TOPAMAX) 100 mg tablet Take 1 tablet by mouth two times a day. - lansoprazole (PREVACID) 30 mg capsule Take 1 capsule by mouth daily before breakfast. - pramipexole (MIRAPEX) 1.5 mg tablet Take 1 tablet by mouth daily at bedtime. - QUEtiapine (SEROQUEL) 25 mg tablet Take 75 mg by mouth daily at bedtime. - CPAP Needs replacement CPAP @ 15 cm of water with humidification. Mask (per patient preference) optional chin strap (if indicated) , filters, tubing, humidifier and lifetime supplies. G47.33 MARIA TERESA on CPAP - furosemide (LASIX) 40 mg tablet Take 1 tablet by mouth once daily. - lamoTRIgine (LAMICTAL) 200 mg tablet Take 1 tablet by mouth two times a day. - diphenhydrAMINE (BENADRYL) 25 mg capsule Take 1 capsule by mouth every 6 hours as needed for itching/rash. - SUMAtriptan (IMITREX) 25 mg tablet Take 1 tablet by mouth at onset of headache and may repeat in 2 hrs if needed. - glucose 4 gram chewable tablet Take 4 tablets by mouth as needed for low blood sugar. - mometasone-formoterol (DULERA) 50-5 mcg/actuation HFA aerosol inhaler Inhale 1 Puff as instructed two times a day. - promethazine (PHENERGAN) 12.5 mg tablet Take 1 tablet by mouth four times a day as needed for nausea/vomiting. - lidocaine (LIDODERM) 5 % Apply 1 Patch as directed every 24 hours. Remove after 12 hours. - Lancets Test blood sugar(s) once times daily. Dx: Type 2 DM - Controlled E11.9 Insulin: No - montelukast (SINGULAIR) 10 mg tablet Take 1 tablet by mouth daily at bedtime. - blood sugar diagnostic (BLOOD GLUCOSE TEST) test strip Test blood sugar(s) one time daily. Dx: Type 2 DM - Controlled E11.9 Insulin: No - metFORMIN (GLUCOPHAGE) 500 mg tablet Take 2 tablets by mouth two times a day with meals. Take one additional 500 mg tab with breakfast or lunch until BS less than 250 - glimepiride (AMARYL) 4 mg tablet Take 1 tablet by mouth daily with breakfast. Dose change, take one daily - albuterol HFA (VENTOLIN HFA) 90 mcg/actuation inhaler Inhale 2 Puffs as instructed every 4 hours as needed. - Chlorhexidine Gluconate (PERIDEX) 0.12 % solution Use 15 mL as instructed two times a day. Rinse around mouth for 30 seconds then expectorate - silver sulfADIAZINE (SILVADENE) 1 % cream Apply 1 application to affected area once daily. - Albuterol Sulfate 1.25 mg/3 mL nebulizer solution Use 1 Ampule via nebulizer every 4 hours as needed for wheezing/shortness of breath. - bacitracin 500 unit/gram ointment APPLY TO THE AFFECTED AREA(S) EVERY DAY - ARIPiprazole (ABILIFY) 5 mg tablet Take 1 tablet by mouth once daily. - loratadine (CLARITIN) 10 mg tablet Take 1 tablet by mouth once daily. - [employer] LITE monitoring kit USE DIRECTED - CPAP Needs lifetime supplies (mask, hoses, headgear, filters, water chamber) G47.33 (already has CPAP) - LORazepam (ATIVAN) 1 mg tablet Take 1 tablet by mouth twice daily. As needed. - Nebulizer NEBULIZER and Supplies FOR HOME USE. DX: J45.40 - citalopram (CELEXA) 40 mg tablet Take 40 mg by mouth once daily. [facility] Problem List As Of Date 07/31/2024 Noted Resolved Asthma [J45.909] Allergic rhinitis [J30.9] Migraine without aura [G43.009] 03/29/2006 Supervision of other normal [Z34.80] 2006 12/12/2011 Supervision of other high-risk [O09.8*09/26/2006 12/12/2011 Personal history of pre-term labor [Z87.51] 11/07/2006 03/11/2018 LGSIL on Pap smear [R87.612] 12/26/2011 Mild dysplasia of cervix [N87.0] 12/26/2011 03/11/2018 Moderate depressed bipolar I disorder (HCC) [F3*12/26/2011 Chronic radicular low (more content not included)... Normal [facility] XR Chest PA and Lateralon IMPRESSION: No acute radiographic abnormality. Financial Services Professional: [facility] Transcribe Date/Time: May 13 2024 8:01P Dictated by : KAREEM MAYEN MD This examination was interpreted and the report reviewed and electronically signed by: KAREEM MAYEN MD on May 13 2024 8:02PM [facility] DIVISION OF RADIOLOGY * * *Final Report* * * DATE OF EXAM: May 13 2024 7:11PM WOX [id number] - XR CHEST 2V FRONTAL/LAT / PROCEDURE REASON: Persistent cough for 3 weeks or longer * * * * Physician Interpretation * * * * EXAMINATION: CHEST RADIOGRAPH (2 VIEW FRONTAL & LATERAL) CLINICAL HISTORY: Persistent cough for 3 weeks or longer MQ: XC2_6 EXAM DATE/TIME: 05/13/2024 7:11 PM COMPARISON: Chest radiograph September 2023 RESULT: Lines, tubes, and devices: None. Lungs and pleura: No consolidation. No pleural effusion. No pneumothorax. Cardiomediastinal silhouette: Normal cardiomediastinal silhouette. Bones and soft tissues: Unremarkable. DIVISION OF RADIOLOGY Provider, [facility] - 05/13/2024 * * *Final Report* * * DATE OF EXAM: May 13 2024 7:11PM WOX [id number] - XR CHEST 2V FRONTAL/LAT / PROCEDURE REASON: Persistent cough for 3 weeks or longer * * * * Physician Interpretation * * * * EXAMINATION: CHEST RADIOGRAPH (2 VIEW FRONTAL & LATERAL) CLINICAL HISTORY: Persistent cough for 3 weeks or longer MQ: XC2_6 EXAM DATE/TIME: 05/13/2024 7:11 PM COMPARISON: Chest radiograph September 2023 RESULT: Lines, tubes, and devices: None. Lungs and pleura: No consolidation. No pleural effusion. No pneumothorax. Cardiomediastinal silhouette: Normal cardiomediastinal silhouette. Bones and soft tissues: Unremarkable. IMPRESSION IMPRESSION: No acute radiographic abnormality. Financial Services Professional: [facility] Transcribe Date/Time: May 13 2024 8:01P Dictated by : KAREEM MAYEN MD This examination was interpreted and the report reviewed and electronically signed by: KAREEM MAYEN MD on May 13 2024 8:02PM EST [facility] Radiology Study observation (narrative) [facility] XR Chest PA and LateralOrder ed By: [facility] Provider on 05-13-2024 [facility] Bacteria identified Anaer cx Nom (Unsp spec)Ordered By: Sebas Lord on 01-02-2024 Anaerobic Culture Anaerobic cocci [facility] Bacteria identified Cx Nom ( Wound)Ordered By: Sebas Lord on 01-02-2024 Wound Culture Enterobacter cloacae complex [facility] Basophil percentageOrdered B y: Sebas Lord on 01-02-2024 Bilirubin [Mass/Vol] 0.60 mg/dL 0.20-1.00 [facility] Comment on above: For patients on eltr ombopag therapy, use of Dimension Walker TBIL is not recommended. Chloride [Moles/Vol] 104 mmol/L 98-107 [facility] Glucose [Mass/Vol] 256 mg/dL 74-106 [facility] Comment on above: Glucose result great er than or equal to 200 mg/dLsuggests DIABETES MELLITUS per A.D.A. criteria. Hemoglobin (Bld) [Mass/Vol] 9.1 g/dL 12.0-15.0 [facility] Potassium [Moles/Vol] 4.0 mmol/L 3.5-5.1 [facility] Protein [Mass/Vol] 7.9 g/dL 6.4-8.2 [facility] Sodium [Moles/Vol] 135 mmol/L 136-145 [facility] WBC (Bld) [#/Vol] 3.8 10*3/uL 4.4-11.0 [facility] Determination of erythrocyte mean corpuscular volume (MCV)Ordered By: Sebas Lord on 01-02-2024 MCV (RBC) [Entitic vol] 74.0 fL 81-99 [facility] [place] Erythrocyte distribution wid th ratioOrdered By: Sebas oLrd on 01-02-2024 Erythrocyte distribution width (RBC) [Ratio] 19.4 % 11.6-14.6 [facility] Erythrocyte distribution wid th standard deviationOrdered By: Sebas Lord on 01-02-2024 Erythrocyte distribution width (RBC) [Entitic vol] 51.8 fL 35.1-43.9 [facility] Erythrocyte sedimentation ra teOrdered By: Sebas Lord on 01-02-2024 ESR (Bld) [Velocity] 49 mm/h 0-30 [facility] Gram stain for investigation of transfusion reactionOrdered By: Sebas Lord on 01-02-2024 Microscopic observation Gram stain Nom (Unsp spec) [facility] Hematocrit Auto (Bld) [Volum e fraction]Ordered By: Sebas Lord on 01-02-2024 Hematocrit (Bld) [Volume fraction] 33.9 % 37-47 [facility] Laboratory - Chemistry and C hemistry - challengeOrdered By: Sebas Lord on 01-02-2024 Albumin/Globulin [Mass ratio] 0.7 {ratio} 0.9-2.4 [facility] ALP [Catalytic activity/Vol] 113 U/L 45-117 [facility] ALT [Catalytic activity/Vol] 34 U/L 13-56 [facility] CO2 [Moles/Vol] 28.0 mmol/L 21.0-32.0 [facility] Globulin (S) [Mass/Vol] 4.7 g/dL 2.2-4.2 [facility] [place] Urea nitrogen/Creatinine [Mass ratio] 14.8 mg/mg 10-20 [facility] - Hematology and Cell countsOrdered By: Sebas Lord on 01-02-2024 MCH (RBC) [Entitic mass] 19.9 pg 27.0-32.0 [facility] MCHC (RBC) [Mass/Vol] 26.8 g/dL 32-36 [facility] Platelet mean volume (Bld) [Entitic vol] 10.0 fL 6.2-12.0 [facility] Platelets (Bld) [#/Vol] 91 10*3/uL 150-450 [facility] [place] No Panel InformationOrdered By: Sebas Lord on 01-02-2024 C-Reactive Protein Extended Range 16.00 mg/L 0.0-3.0 [facility] Comment on above: C-Reactive Protein ( CRP) provides useful information for thediagnosis, therapy and monitoring of inflammatory processesand associated diseases. For the evaluation of Relative Riskfor Cardiovascular Disease, a High Sensitivity CRP (HSCRP)should be ordered. D-Dimer Quantitative (PE/DVT) 0.48 FEU/ug/m 0.27-0.49 [facility] Comment on above: NORMAL D-Dimer level (<0.50) indicates no DVT or PE. Estimated Creatinine Clearance Calc 181.18 ml/min [facility] Estimated GFR (MDRD) Amer 138 mL/min >60 [facility] Comment on above: GFR Calc Estimated GFR (MDRD) Non-Af Amer 114 mL/min >60 [facility] Comment on above: Non- GFR Calc RBC Auto (Bld) [#/Vol]Ordere d By: Sebas Lord on 01-02-2024 RBC (Bld) [#/Vol] 4.58 10*6/uL 4.2-5.4 [facility] Serum or plasma calcium monique urement (mass/volume)Ordered By: Sebas Lord on 01-02-2024 Calcium [Mass/Vol] 8.9 mg/dL 8.5-10.1 [facility] Serum or plasma creatinine m easurement (mass/volume)Ordered By: Sebas Lord on 01-02-2024 Creatinine [Mass/Vol] 0.61 mg/dL 0.55-1.02 [facility] Comment on above: The validity of the calculated GFR & GFRAA in patients over 70 years has not been determined. Clinical correlation is essential. Serum or plasma urea nitroge n measurement (mass/volume)Ordered By: Sebas Lord on 01-02-2024 Urea nitrogen [Mass/Vol] 9 mg/dL 7-18 [facility] Thin prep Papanicolaou smear with manual screeningOrdered By: Sebas Lord on 01-02-2024 Thin prep Papanicolaou smear with manual screening 3.2 g/dL 3.2-5.0 [facility] Thin prep Papanicolaou smear with manual screening 30 U/L 15-37 [facility] Thin prep Papanicolaou smear with manual screening 3 5-15 [facility] Whole blood hemoglobin A1c/t otal hemoglobin ratio (mass fraction)Ordered By: Sebas Lord on 01-02-2024 HbA1c (Bld) [Mass fraction] 8.9 % 3.8-5.6 [facility] Comment on above: Normal < 5.7 % Predi abetic 5.7 - 6.4 % Diabetic >or= 6.5 % Please note range changes. Anaerobic cultureOrdered By: Sebas Lord on 10-17-2023 Bacteria identified Anaer cx Nom (Unsp spec) No anaerobic bacteria isolated. [facility] Bacteria identified Cx Nom ( Wound)Ordered By: Sebas Lord on 10-17-2023 Wound Culture Enterobacter cloacae complex [facility] Fungus cultureOrdered By: Taian Lord on 10-17-2023 Fungus identified Cx Nom (Unsp spec) [facility] Gram stain for investigation of transfusion reactionOrdered By: Sebas Lord on 10-17-2023 Microscopic observation Gram stain Nom (Unsp spec) [facility] CNPDonna 10-02-2023 CNPN Telephone ([employer]) NANCI RODRIGUEZ ([id number]) 1980 F Date Time Provider Department 10/02/23 RAFITA LUND During your visit today, we recorded the following information about you: Allergies As of Date: 10/02/2023 Noted Allergy Reaction PENICILLINS 08/24/2011 9 - Itching 4 - Hives MELATONIN 11/08/2016 2 - Rash 4 - Hives WELLBUTRIN (BUPROPION) 03/12/2019 5 - Intolerance Comments: Dry mouth--severe, intolerable Date Reviewed: 09/18/2023 Reviewed by: Zunilda Jaramillo APRN.SENIOR TRAINER - Fully Assessed Reason for Visit: Appointment [[id number]] Cmt: No Showed to nutrition appt on 10/01/2023, left VM to r/s. Prescriptions as of 10/02/2023 - ferrous sulfate 325 mg (65 mg iron) tablet Take 1 tablet by mouth every Sunday, Sunday, and Sunday. - SUMAtriptan (IMITREX) 25 mg tablet Take 1 tablet by mouth at onset of headache and may repeat in 2 hrs if needed. - cyclobenzaprine (FLEXERIL) 10 mg tablet Take 1 tablet by mouth three times a day as needed for muscle spasm. May make drowsy - diphenhydrAMINE (BENADRYL) 25 mg capsule Take 1 capsule by mouth every 6 hours as needed for itching/rash. - predniSONE (DELTASONE) 10 mg tablet Take 2 tabs po BID for 2 days then 1 tab po BID for 2 days then 1/2 tab po BID for 2 days then 1/2 tab daily for 2 days then stop - topiramate (TOPAMAX) 100 mg tablet Take 1 tablet by mouth two times a day. - lansoprazole (PREVACID) 30 mg capsule Take 1 capsule by mouth daily before breakfast. - promethazine (PHENERGAN) 12.5 mg tablet Take 1 tablet by mouth four times a day as needed for nausea/vomiting. - mometasone-formoterol (DULERA) 50-5 mcg/actuation HFA aerosol inhaler Inhale 2 Puffs as instructed two times a day. Rinse mouth out after use. - pramipexole (MIRAPEX) 1.5 mg tablet Take [...] 1 tablet by mouth once daily. - metFORMIN (GLUCOPHAGE) 500 mg tablet Take 2 tablets by mouth twice daily with meals. Take one additional 500 mg tab with breakfast or lunch until BS less than 250 - montelukast (SINGULAIR) 10 mg tablet Take 1 tablet by mouth daily at bedtime. - glimepiride (AMARYL) 4 mg tablet Take [...] low sugars Dx E11.9 Insulin: no - loratadine (CLARITIN) 10 mg tablet Take 1 tablet by mouth once daily. - blood sugar diagnostic (FREESTYLE LITE STRIPS) test strip Test blood sugar(s) 1 times daily and as needed. Dx: Type 2 DM - Controlled E11.9 Insulin: No - FREESTYLE FREEDOM LITE monitoring kit USE [...] [facility] Problem List As Of Date 10/02/2023 Noted Resolved Asthma [J45.909] Allergic rhinitis [J30.9] Migraine without aura [G43.009] 03/29/2006 Supervision of other normal [Z34.80] 2006 12/12/2011 Supervision of other high-risk [O09.8*09/26/2006 12/12/2011 Personal history of pre-term labor [Z87.51] 11/07/2006 03/11/2018 LGSIL on Pap smear [R87.612] 12/26/2011 Mild dysplasia of cervix [N87.0] 12/26/2011 03/11/2018 Moderate depressed bipolar I disorder (HCC) [F3*12/26/2011 Chronic radicula (more content not included)... Normal [facility] Beta hCG serum qualOrdered B y: Ten Lagos on 09-28-2023 Beta HCG ( test) Ql Negative [facility] Glucose Glucometer (dC) [M ass/Vol]Ordered By: Sebas Lord on 09-28-2023 Glucose [Mass/Vol] 121 mg/dL 74-106 [facility] Comment on above: MANAGEMENT OF PATIEN T CARE PER NURSING PROTOCOL XR Chest PA and Lateralon IMPRESSION: No acute radiographic abnormality. Financial Services Professional: PAUL Transcribe Date/Time: Sep 21 2023 1:55P Dictated by : KUSUM THORPE MD This examination was interpreted and the report reviewed and electronically signed by: KUSUM THORPE MD on Sep 21 2023 1:56PM [facility] DIVISION OF RADIOLOGY * * *Final Report* * * DATE OF EXAM: Sep 21 2023 11:38AM WOX 5291 - XR CHEST 2V FRONTAL/LAT / PROCEDURE REASON: Pre-op evaluation * * * * Physician Interpretation * * * * EXAMINATION: CHEST RADIOGRAPH (2 VIEW FRONTAL & LATERAL) CLINICAL HISTORY: Pre-op evaluation MQ: XC2_6 EXAM DATE/TIME: 09/21/2023 11:38 AM COMPARISON: 11/18/2018 RESULT: Lines, tubes, and devices: None. Lungs and pleura: No consolidation. No lung mass. No pleural effusion. No pneumothorax. Cardiomediastinal silhouette: Normal cardiomediastinal silhouette. Bones and soft tissues: Remote right 9th rib fracture. DIVISION OF RADIOLOGY Provider, [facility] - 09/21/2023 * * *Final Report* * * DATE OF EXAM: Sep 21 2023 11:38AM WOX 5291 - XR CHEST 2V FRONTAL/LAT / PROCEDURE REASON: Pre-op evaluation * * * * Physician Interpretation * * * * EXAMINATION: CHEST RADIOGRAPH (2 VIEW FRONTAL & LATERAL) CLINICAL HISTORY: Pre-op evaluation MQ: XC2_6 EXAM DATE/TIME: 09/21/2023 11:38 AM COMPARISON: 11/18/2018 RESULT: Lines, tubes, and devices: None. Lungs and pleura: No consolidation. No lung mass. No pleural effusion. No pneumothorax. Cardiomediastinal silhouette: Normal cardiomediastinal silhouette. Bones and soft tissues: Remote right 9th rib fracture. IMPRESSION IMPRESSION: No acute radiographic abnormality. Financial Services Professional: PSCB Transcribe Date/Time: Sep 21 2023 1:55P Dictated by : KUSUM THORPE MD This examination was interpreted and the report reviewed and electronically signed by: KUSUM THORPE MD on Sep 21 2023 1:56PM [facility] Radiology Study observation (narrative) Justyna Garrison XR Chest PA and LateralOrder ed By: Cc Provider on 09-21-2023 [facility] XR WRIST INJURY 4V PA/LAT/OB L/SCAPH RIGHTon 07-23-2023 [facility] XR Wrist - right 4 Viewson 1 09-22-2022 IMPRESSION: No radiographic evidence of acute osseous abnormality Financial Services Professional: [facility] Transcribe Date/Time: Jul 23 2023 4:11P Dictated by : EWA BUENO MD This examination was interpreted and the report reviewed and electronically signed by: EWA BUENO MD on Jul 23 2023 4:16PM [facility] DIVISION OF RADIOLOGY * * *Final Report* * * DATE OF EXAM: Jul 23 2023 4:11PM WOX 5273 - XR WRIST 4V PA/LAT/OBL/SCAPH RT / PROCEDURE REASON: Right wrist pain * * * * Physician Interpretation * * * * TITLE: XR WRIST 4V PA/LAT/OBL/SCAPH RT CLINICAL INDICATION: Wrist pain TECHNIQUE: 4 view radiographic study of the right wrist COMPARISON: None FINDINGS: No acute fracture or dislocation identified. Joint spaces preserved DIVISION [facility]OLOGY [facility] * * *Final Report* * * DATE OF EXAM: Jul 23 2023 4:11PM WOX 5273 - XR WRIST 4V PA/LAT/OBL/SCAPH RT / PROCEDURE REASON: Right wrist pain * * * * Physician Interpretation * * * * TITLE: XR WRIST 4V PA/LAT/OBL/SCAPH RT CLINICAL INDICATION: Wrist pain TECHNIQUE: 4 view radiographic study of the right wrist COMPARISON: None FINDINGS: No acute fracture or dislocation identified. Joint spaces preserved IMPRESSION IMPRESSION: No radiographic evidence of acute osseous abnormality Financial Services Professional: [facility] Transcribe Date/Time: Jul 23 2023 4:11P Dictated by : EWA BUENO MD This examination was interpreted and the report reviewed and electronically signed by: EWA BUENO MD on Jul 23 2023 4:16PM EST [facility] Radiology Study observation (narrative) Justyna [facility] XR Wrist - right 4 ViewsOrde red By: Ccf Provider on 07-23-2023 [facility] FERRITIN BLDon 03-07-2023 Ferritin [Mass/Vol] 10.3 ng/mL Low 14.7 - 2 05.1 ng/mL [facility] MAGNESIUM BLDon 03-07-2023 Magnesium [Mass/Vol] 1.8 mg/dL 1.7 - 2 .3 mg/dL [facility] CBC W Auto Differential pane l (Bld)on 03-06-2023 Basophils (Bld) [#/Vol] <0.11 k/uL [facility] Basophils/100 WBC (Bld) 0.5 % [facility] Differential cell count method Nom (Bld) Auto [facility] Eosinophils (Bld) [#/Vol] 0.05 10*3/uL <0.46 k/uL [facility] Eosinophils/100 WBC (Bld) 1.3 % [facility] Erythrocyte distribution width (RBC) [Ratio] 22.9 % High 11.5 - 15.0 % [facility] Hematocrit (Bld) [Volume fraction] 33.8 % Low 36.0 - 46.0 % [facility] Hemoglobin (Bld) [Mass/Vol] 9.4 g/dL Low 11.5 - 15.5 g/dL [facility] Immature granulocytes (Bld) [#/Vol] <0.10 k/uL [facility] Immature granulocytes/100 WBC (Bld) 0.3 % [facility] Lymphocytes (Bld) [#/Vol] 1.00 10*3/uL 1.00 - 4.00 k/uL [facility] Lymphocytes/100 WBC (Bld) 25.8 % [facility] MCH (RBC) [Entitic mass] 20.8 pg Low 26. 0 - 34.0 pg [facility] MCHC (RBC) [Mass/Vol] 27.8 g/dL Low 30.5 - 36.0 g/dL [facility] MCV (RBC) [Entitic vol] 74.9 fL Low 80.0 - 100.0 fL [facility] Monocytes (Bld) [#/Vol] 0.23 10*3/uL <0.87 k/uL [facility] Monocytes/100 WBC (Bld) 5.9 % [facility] Neutrophils (Bld) [#/Vol] 2.57 10*3/uL 1.45 - 7.50 k/uL [facility] Neutrophils/100 WBC (Bld) 66.2 % [facility] Nucleated RBC (Bld) [#/Vol] <0.01 k/uL [facility] Nucleated RBC/100 WBC (Bld) [Ratio] 0.0 /100 WBC [facility] Platelet mean volume (Bld) [Entitic vol] 9.9 fL 9.0 - 12.7 fL [facility] Platelets (Bld) [#/Vol] 101 10*3/uL Low 150 - 400 k/uL [facility] RBC (Bld) [#/Vol] 4.51 10*6/uL 3.90 - 5.2 0 m/uL [facility] WBC (Bld) [#/Vol] 3.88 10*3/uL 3.70 - 11. 00 k/uL [facility] US DVT LOWER RIGHTon 023 [facility] Amorphous sediment detection in urine sediment by light microscopyOrdered By: Dr. Bundy on 12-09-2022 Amorphous sediment LM Ql (Urine sed) 2+ [facility] Basophil percentageOrdered B y: Dr. Bundy on 12-09-2022 Basophil percentage 0 SEEN /hpf 0-5 [facility] Bilirubin Test strip Ql (U)O rdered By: Dr. Bundy on 12-09-2022 Bilirubin Ql (U) Negative Negative [facility] Ketones Test strip Ql (U)Ord ered By: Dr. Bundy on 12-09-2022 Ketones Ql (U) Negative Negative [facility] Laboratory - Chemistry and C hemistry - challengeOrdered By: Dr. Bundy on 12-09-2022 HCG ( test) Ql (U) Negative [facility] Comment on above: Very dilute urine sp ecimens, as indicated by a low specificgravity, may not contain community representative levels of hCG. If is still suspected, a first morning urinespecimen should be collected 48 hours later and tested. Mucus LM Ql (Urine sed)Order ed By: Dr. Bundy on 12-09-2022 Mucus Ql (Urine sed) 0 SEEN /hpf [facility] Nitrite Test strip Ql (U)Ord ered By: Dr. Bundy on 12-09-2022 Nitrite Ql (U) Negative Negative [facility] Protein Test strip Ql (U)Ord ered By: Dr. Bundy on 12-09-2022 Protein Ql (U) 15 mg/dl Negative [facility] Squamous epithelial cells de tection in urine sediment by light microscopyOrdered By: Dr. Bundy on 12-09-2022 Epithelial cells.squamous LM Ql (Urine sed) 0-5 SEEN /hpf 5-10 [facility] Urine blood detectionOrdered By: Dr. Bundy on 12-09-2022 RBC Ql (U) Negative Negative [facility] RBC Ql (U) 0 SEEN /hpf 0-5 [facility] Urine clarityOrdered By: Dr. Bundy on 12-09-2022 Clarity (U) Sl. Cloudy Clear [facility] Urine color determinationOrd ered By: Dr. Bundy on 12-09-2022 Color (U) Yellow Yellow [facility] Urine glucose detectionOrder ed By: Dr. Bundy on 12-09-2022 Glucose Ql (U) 250 mg/dl Normal [facility] Urine leukocyte esterase det ection by dipstickOrdered By: Dr. Bundy on 12-09-2022 Leukocyte esterase Test strip Ql (U) Negative Negative [facility] Urine pHOrdered By: Dr. Richei pang on 12-09-2022 pH (U) 7.0 [pH] 5.0 - 8.0 [facility] Urine sediment bacteria coun t by microscopy (number/high power field)Ordered By: Dr. Bundy on 12-09-2022 Bacteria LM.HPF (Urine sed) [#/Area] 0 /[HPF] None Seen [facility] Urine specific gravity measu rementOrdered By: Dr. Bundy on 12-09-2022 Specific gravity (U) [Rel density] 1.010 1.002-1.030 [facility] Urobilinogen Auto test strip Ql (U)Ordered By: Dr. Bundy on 12-09-2022 Urobilinogen Ql (U) 1 mg/dl Normal [facility] Absolute lymphocyte countOrd ered By: Dr. Ham on 09-07-2022 Lymphocytes Auto (Unsp spec) [#/Vol] 0.73 10*3/uL 0.83-4.51 [facility] Basophil percentageOrdered B y: Dr. Ham on 09-07-2022 Basophils/100 WBC (Bld) 0.3 % 0-1 [facility] Chloride [Moles/Vol] 111 mmol/L 98-107 [facility] Eosinophils/100 WBC (Bld) 1.5 % 0-5 [facility] Glucose [Mass/Vol] 229 mg/dL 74-106 [facility] Comment on above: Glucose result great er than or equal to 200 mg/dLsuggests DIABETES MELLITUS per A.D.A. criteria. Neutrophils (Bld) [#/Vol] 2.4 10*3/uL 2.0-7.7 [facility] Neutrophils/100 WBC (Bld) 70.3 % 47-70 [facility] Potassium [Moles/Vol] 4.0 mmol/L 3.5-5.1 [facility] Sodium [Moles/Vol] 137 mmol/L 136-145 [facility] WBC (Bld) [#/Vol] 3.4 10*3/uL 4.4-11.0 [facility] Blood erythrocytes count (nu mber/volume)Ordered By: Dr. Ham on 09-07-2022 RBC (Bld) [#/Vol] 3.75 10*6/uL 4.2-5.4 [facility] Blood hemoglobin measurement (mass/volume)Ordered By: Dr. Ham on 09-07-2022 Hemoglobin (Bld) [Mass/Vol] 6.9 g/dL 12.0-15.0 [facility] Blood lymphocytes/100 leukoc ytesOrdered By: Dr. Ham on 09-07-2022 Lymphocytes/100 WBC (Bld) 21.7 % 19-41 [facility] Blood manual differential co mment interpretation (narrative result)Ordered By: Dr. Ham on 09-07-2022 Manual differential comment Dhruv (Bld) [Interp] SCANNED [facility] Comment on above: 2+ ANISOCYTOSIS THRO MBOCYTOPENIA NOTED Blood monocytes/[address] leukocyt esOrdered [address]: [address] Ham on 09-07-2022 Monocytes/100 WBC (Bld) 5.6 % 0-10 [facility] Blood platelet mean volumeOr dered By: Dr. Ham on 09-07-2022 Platelet mean volume (Bld) [Entitic vol] 10.0 fL 6.2-12.0 [facility] Determination of erythrocyte mean corpuscular volume (MCV)Ordered By: Dr. Ham on 09-07-2022 MCV (RBC) [Entitic vol] 72.8 fL 81-99 [facility] Hematocrit Auto (Bld) [Volum e fraction]Ordered By: Dr. Ham on 09-07-2022 Hematocrit (Bld) [Volume fraction] 27.3 % 37-47 [facility] Influenza virus A and B and SARS-CoV-2 (COVID-19) Ag panel - Upper respiratory specimOrdered By: Dr. Ham on 09-07-2022 SARS-CoV-2 (COVID-19) RNA ROMMEL+probe Ql (Resp) [facility] Laboratory - Chemistry and C hemistry - challengeOrdered By: Dr. Ham on 09-07-2022 CO2 [Moles/Vol] 27.0 mmol/L 21.0-32.0 [facility] Natriuretic peptide B (Bld) [Mass/Vol] 75.6 pg/mL 0-100 [facility] Urea nitrogen/Creatinine [Mass ratio] 14.5 mg/mg 10-20 [facility] Laboratory - Hematology and Cell countsOrdered By: Dr. Ham on 09-07-2022 Erythrocyte distribution width (RBC) [Entitic vol] 60.6 fL 35.1-43.9 [facility] Erythrocyte distribution width (RBC) [Ratio] 23.1 % 11.6-14.6 [facility] Immature granulocytes/100 WBC (Bld) 0.600 % 0.0-0.9 [facility] Comment on above: IG% - Immature Granu locytes (promyelocytes, myelocytes and metamyelocytes) > 1% indicates that a LEFT SHIFT is Present. MCH (RBC) [Entitic mass] 18.4 pg 27.0-32.0 [facility] Nucleated RBC/100 WBC (Bld) [Ratio] 0 % 0-5 [facility] MCHC Auto (RBC) [Mass/Vol]Or dered By: Dr. Ham on 09-07-2022 MCHC (RBC) [Mass/Vol] 25.3 g/dL 32-36 [facility] No Panel InformationOrdered By: Dr. Ham on 09-07-2022 Estimated Creatinine Clearance Calc 88.76 ml/min [facility] Estimated GFR (MDRD) Amer 120 mL/min >60 [facility] Comment on above: GFR Calc Estimated GFR (MDRD) Non-Af Amer 99 mL/min >60 [facility] Comment on above: Non- GFR Calc Platelets bldOrdered By: Dr. Ham on 09-07-2022 Platelets (Bld) [#/Vol] 84 10*3/uL 150-450 [facility] [place] Serum or plasma calcium monique urement (mass/volume)Ordered By: Dr. Ham on 09-07-2022 Calcium [Mass/Vol] 8.2 mg/dL 8.5-10.1 [facility] Serum or plasma creatinine m easurement (mass/volume)Ordered By: Dr. Ham on 09-07-2022 Creatinine [Mass/Vol] 0.69 mg/dL 0.55-1.02 [facility] Comment on above: The validity of the calculated GFR & GFRAA in patients over 70 years has not been determined. Clinical correlation is essential. Serum or plasma urea nitroge n measurement (mass/volume)Ordered By: Dr. Ham on 09-07-2022 Urea nitrogen [Mass/Vol] 10 mg/dL 7-18 [facility] Thin prep Papanicolaou smear with manual screeningOrdered By: Dr. Ham on 09-07-2022 Thin prep Papanicolaou smear with manual screening -1 5-15 [facility] Absolute lymphocyte counton 07-25-2022 Lymphocytes Auto (Unsp spec) [#/Vol] 0.85 10*3/uL 0.83-4.51 [facility] Work Phone: Basophil percentageon 2021 Basophils/100 WBC (Bld) 0.2 % 0-1 [facility] Work Phone: Chloride [Moles/Vol] 112 mmol/L 98-107 [facility] Work Phone: Eosinophils/100 WBC (Bld) 1.6 % 0-5 [facility] Work Phone: Glucose [Mass/Vol] 176 mg/dL 74-106 [facility] Work Phone: Comment on above: Fasting Glucose resu lt greater than or equal to 126 mg/dL suggests DIABETES MELLITUS per A.D.A. criteria. Neutrophils (Bld) [#/Vol] 3.1 10*3/uL 2.0-7.7 [facility] Work Phone: [phone] Neutrophils/100 WBC (Bld) 72.8 % 47-70 [facility] Work Phone: Potassium [Moles/Vol] 3.8 mmol/L 3.5-5.1 [facility] Work Phone: [phone] Sodium [Moles/Vol] 139 mmol/L 136-145 [facility] Work Phone: [phone] WBC (Bld) [#/Vol] 4.3 10*3/uL 4.4-11.0 [facility] Work Phone: [phone] Blood erythrocytes count (nu mber/volume)on 07-25-2022 RBC (Bld) [#/Vol] 4.28 10*6/uL 4.2-5.4 [facility] Work Phone: Blood hemoglobin measurement (mass/volume)on 07-25-2022 Hemoglobin (Bld) [Mass/Vol] 8.2 g/dL 12.0-15.0 [facility] Work Phone: Blood lymphocytes/100 leukoc yteson 07-25-2022 Lymphocytes/100 WBC (Bld) 19.8 % 19-41 [facility] Work Phone: [phone] Blood monocytes/100 leukocyt eson 07-25-2022 Monocytes/100 WBC (Bld) 5.4 % 0-10 [facility] Work Phone: Blood platelet adequacy dete ction by light microscopyon 07-25-2022 Platelets LM Ql (Bld) SLT DEC ADEQ [facility] Work Phone: Blood platelet mean volumeon 07-25-2022 Platelet mean volume (Bld) [Entitic vol] 9.0 fL 6.2-12.0 [facility] Work Phone: Determination of erythrocyte mean corpuscular volume (MCV)on 07-25-2022 MCV (RBC) [Entitic vol] 70.6 fL 81-99 [facility] Work Phone: [phone] Hematocrit Auto (Bld) [Volum e fraction]on 07-25-2022 Hematocrit (Bld) [Volume fraction] 30.2 % 37-47 [facility] Work Phone: [phone] Hypochromatic red blood cell detectionon 07-25-2022 Hypochromia Ql (Bld) 1+ [facility] Work Phone: Laboratory - Chemistry and C hemistry - challengeon 07-25-2022 CO2 [Moles/Vol] 23.0 mmol/L 21.0-32.0 [facility] Work Phone: [phone] Urea nitrogen/Creatinine [Mass ratio] 9.6 mg/mg 10-20 [facility] Work Phone: Laboratory - Hematology and Cell countson 07-25-2022 Anisocytosis Ql (Bld) RARE [facility] Work Phone: [phone] Erythrocyte distribution width (RBC) [Entitic vol] 55.8 fL 35.1-43.9 [facility] Work Phone: [phone] Erythrocyte distribution width (RBC) [Ratio] 22.5 % 11.6-14.6 [facility] Work Phone: [phone] Immature granulocytes/100 WBC (Bld) 0.200 % 0.0-0.9 [facility] Work Phone: Comment on above: IG% - Immature Granu locytes (promyelocytes, myelocytes and metamyelocytes) > 1% indicates that a LEFT SHIFT is Present. MCH (RBC) [Entitic mass] 19.2 pg 27.0-32.0 [facility] Work Phone: Nucleated RBC/100 WBC (Bld) [Ratio] 0 % 0-5 [facility] Work Phone: MCHC Auto (RBC) [Mass/Vol]on 07-25-2022 MCHC (RBC) [Mass/Vol] 27.2 g/dL 32-36 [facility] Work Phone: No Panel Informationon 07-25 Estimated Creatinine Clearance Calc 99.78 ml/min [facility] Work Phone: Estimated GFR (MDRD) Amer 136 mL/min >60 [facility] Work Phone: Comment on above: GFR Calc Estimated GFR (MDRD) Non-Af Amer 112 mL/min >60 [facility] Work Phone: Comment on above: Non- GFR Calc Platelets bldon 07-25-2022 Platelets (Bld) [#/Vol] 97 10*3/uL 150-450 [facility] Work Phone: RBC morphologyon 07-25-2022 RBC morphology finding Nom (Bld) N CHROM NORMAL NORM C&C [facility] Work Phone: Serum or plasma calcium monique urement (mass/volume)on 07-25-2022 Calcium [Mass/Vol] 8.6 mg/dL 8.5-10.1 [facility] Work Phone: Serum or plasma creatinine m easurement (mass/volume)on 07-25-2022 Creatinine [Mass/Vol] 0.62 mg/dL 0.55-1.02 [facility] Work Phone: Comment on above: The validity of the calculated GFR & GFRAA in patients over 70 years has not been determined. Clinical correlation is essential. Serum or plasma urea nitroge n measurement (mass/volume)on 07-25-2022 Urea nitrogen [Mass/Vol] 6 mg/dL 7-18 [facility] Work Phone: Thin prep Papanicolaou smear with manual screeningon 07-25-2022 Thin prep Papanicolaou smear with manual screening 1+ [facility] Work Phone: Thin prep Papanicolaou smear with manual screening 4 5-15 [facility] Work Phone: Absolute lymphocyte counton 06-01-2022 Lymphocytes Auto (Unsp spec) [#/Vol] 0.96 10*3/uL 0.83-4.51 [facility] Work Phone: Basophil percentageon 2021 Basophils/100 WBC (Bld) 0.3 % 0-1 [facility] Work Phone: Bilirubin [Mass/Vol] 0.40 mg/dL 0.20-1.00 [facility] Work Phone: Comment on above: For patients on eltr ombopag therapy, use of Dimension Walker TBIL is not recommended. Chloride [Moles/Vol] 111 mmol/L 98-107 [facility] Work Phone: Eosinophils/100 WBC (Bld) 2.5 % 0-5 [facility] Work Phone: Glucose [Mass/Vol] 161 mg/dL 74-106 [facility] Work Phone: Comment on above: Fasting Glucose resu lt greater than or equal to 126 mg/dL suggests DIABETES MELLITUS per A.D.A. criteria. Neutrophils (Bld) [#/Vol] 2.4 10*3/uL 2.0-7.7 [facility] Work Phone: Neutrophils/100 WBC (Bld) 64.6 % 47-70 [facility] Work Phone: Potassium [Moles/Vol] 3.7 mmol/L 3.5-5.1 [facility] Work Phone: Protein [Mass/Vol] 7.5 g/dL 6.4-8.2 [facility] Work Phone: Sodium [Moles/Vol] 142 mmol/L 136-145 [facility] Work Phone: WBC (Bld) [#/Vol] 3.7 10*3/uL 4.4-11.0 [facility] Work Phone: Blood erythrocytes count (nu mber/volume)on 06-01-2022 RBC (Bld) [#/Vol] 4.12 10*6/uL 4.2-5.4 [facility] Work Phone: Blood hemoglobin measurement (mass/volume)on 06-01-2022 Hemoglobin (Bld) [Mass/Vol] 8.3 g/dL 12.0-15.0 [facility] Work Phone: Blood lymphocytes/100 leukoc yteson 06-01-2022 Lymphocytes/100 WBC (Bld) 26.3 % 19-41 [facility] Work Phone: Blood manual differential co mment interpretation (narrative result)on 06-01-2022 Manual differential comment Dhruv (Bld) [Interp] SCANNED [facility] Work Phone: Blood monocytes/100 leukocyt eson 06-01-2022 Monocytes/100 WBC (Bld) 6.0 % 0-10 [facility] Work Phone: Blood platelet mean volumeon 06-01-2022 Platelet mean volume (Bld) [Entitic vol] 9.3 fL 6.2-12.0 [facility] Work Phone: Determination of erythrocyte mean corpuscular volume (MCV)on 06-01-2022 MCV (RBC) [Entitic vol] 74.5 fL 81-99 [facility] Work Phone: Hematocrit Auto (Bld) [Volum e fraction]on 06-01-2022 Hematocrit (Bld) [Volume fraction] 30.7 % 37-47 [facility] Work Phone: Hypochromatic red blood cell detectionon 06-01-2022 Hypochromia Ql (Bld) 1+ [facility] Work Phone: Laboratory - Chemistry and C hemistry - challengeon 06-01-2022 ALP [Catalytic activity/Vol] 110 U/L 45-117 [facility] Work Phone: ALT [Catalytic activity/Vol] 38 U/L 13-56 [facility] Work Phone: [phone] CO2 [Moles/Vol] 25.0 mmol/L 21.0-32.0 [facility] Work Phone: Globulin (S) [Mass/Vol] 4.2 g/dL 2.2-4.2 [facility] Work Phone: [phone] Urea nitrogen/Creatinine [Mass ratio] 11.3 mg/mg 10-20 [facility] Work Phone: [phone] Laboratory - Hematology and Cell countson 06-01-2022 Anisocytosis Ql (Bld) 2+ [facility] Work Phone: [phone] Erythrocyte distribution width (RBC) [Entitic vol] 58.4 fL 35.1-43.9 [facility] Work Phone: [phone] Erythrocyte distribution width (RBC) [Ratio] 21.9 % 11.6-14.6 [facility] Work Phone: [phone] Immature granulocytes/100 WBC (Bld) 0.300 % 0.0-0.9 [facility] Work Phone: [phone] Comment on above: IG% - Immature Granu locytes (promyelocytes, myelocytes and metamyelocytes) > 1% indicates that a LEFT SHIFT is Present. MCH (RBC) [Entitic mass] 20.1 pg 27.0-32.0 [facility] Work Phone: [phone] Nucleated RBC/100 WBC (Bld) [Ratio] 0 % 0-5 [facility] Work Phone: [phone] MCHC Auto (RBC) [Mass/Vol]on 06-01-2022 MCHC (RBC) [Mass/Vol] 27.0 g/dL 32-36 [facility] Work Phone: Macrocytes detectionon 06-01 Macrocytes Ql (Bld) 1+ [facility] Work Phone: No Panel Informationon 06-01 Estimated Creatinine Clearance Calc 87.13 ml/min [facility] Work Phone: [phone] Estimated GFR (MDRD) Amer 118 mL/min >60 [facility] Work Phone: [phone] Comment on above: GFR Calc Estimated GFR (MDRD) Non-Af Amer 97 mL/min >60 [facility] Work Phone: [phone] Comment on above: Non- GFR Calc Platelets bldon 06-01-2022 Platelets (Bld) [#/Vol] 100 10*3/uL 150-450 [facility] Work Phone: [phone] Serum or plasma albumin monique urement (mass/volume)on 06-01-2022 Albumin [Mass/Vol] 3.3 g/dL 3.2-5.0 [facility] Work Phone: [phone] Serum or plasma albumin/glob ulin mass ratioon 06-01-2022 Albumin/Globulin [Mass ratio] 0.8 {ratio} 0.9-2.4 [facility] Work Phone: [phone] Serum or plasma calcium monique urement (mass/volume)on 06-01-2022 Calcium [Mass/Vol] 8.8 mg/dL 8.5-10.1 [facility] Work Phone: [phone] Serum or plasma creatinine m easurement (mass/volume)on 06-01-2022 Creatinine [Mass/Vol] 0.71 mg/dL 0.55-1.02 [facility] Work Phone: [phone] Comment on above: The validity of the calculated GFR & GFRAA in patients over 70 years has not been determined. Clinical correlation is essential. Serum or plasma urea nitroge n measurement (mass/volume)on 06-01-2022 Urea nitrogen [Mass/Vol] 8 mg/dL 7-18 [facility] Work Phone: [phone] Thin prep Papanicolaou smear with manual screeningon 06-01-2022 Thin prep Papanicolaou smear with manual screening 1+ [facility] Work Phone: [phone] Thin prep Papanicolaou smear with manual screening 34 U/L 15-37 [facility] Work Phone: [phone] Thin prep Papanicolaou smear with manual screening 6 5-15 [facility] Work Phone: [phone] Influenza virus A and B and SARS-CoV-2 (COVID-19) Ag panel - Upper respiratory specim SARS-CoV-2 (COVID-19) RNA ROMMEL+probe Ql (Resp) [facility] Work Phone: No Panel Information SARS-CoV-2 & FLU Antigen (Rapid) [facility] Work Phone: Vital Signs Date Time Vital Sign Value Performing Clinician Facility 07-22-2025 08:51-0500 Body temperature 97 [degF] Dr. Rodri Chauhan MD Work Phone: 0(259)967-533585 [place] [address] 07-22-2025 08:51-0500 Diastolic blood pressure 87 mm[Hg] Dr. Rodri Chauhan MD Work Phone: 7(803)635-351585 [place] [address] 07-22-2025 08:51-0500 Heart rate 102 /min Dr. Rodri Chauhan MD Work Phone: 5(431)469-973785 [place] [address] 07-22-2025 08:51-0500 Respiratory rate 18 /min Dr. Rodri Chauhan MD Work Phone: 7(846)076-292985 [place] [address] 07-22-2025 08:51-0500 Systolic blood pressure 146 mm[Hg] Dr. Rodri Chauhan MD Work Phone: 9(008)391-205185 [place] [address] 07-17-2025 12:54-0400 Body temperature 97 [degF] Dr. Rodri Chauhan MD Work Phone: 7(851)979-065285 [place] [address] 07-17-2025 12:54-0400 Diastolic blood pressure 85 mm[Hg] Dr. Rodri Chauhan MD Work Phone: 4(494)033-438785 [place] [address] 07-17-2025 12:54-0400 Heart rate 98 /min Dr. Rodri Chauhan MD Work Phone: 1(431)033-932246 [place] [address] 07-17-2025 12:54-0400 Respiratory rate 18 /min Dr. Rodri Chauhan MD Work Phone: 8(179)053-713646 [place] [address] 07-17-2025 12:54-0400 Systolic blood pressure 147 mm[Hg] Dr. Rodri Chauhan MD Work Phone: 9(468)132-724185 [place] [address] 07-04-2025 21:58-0400 Body temperature 97.8 [degF] Dr. Rodri Chauhan MD Work Phone: 3(092)253-004046 [place] [address] 07-04-2025 21:58-0400 Diastolic blood pressure 83 mm[Hg] Dr. Rodri Chauhan MD Work Phone: 1(899)871-881485 [place] [address] 07-04-2025 21:58-0400 Heart rate 103 /min Dr. Rodri Chauhan MD Work Phone: 0(734)427-052785 [place] [address] 07-04-2025 21:58-0400 Respiratory rate 20 /min Dr. Rodri Chauhan MD Work Phone: 6(302)527-159485 [place] [address] 07-04-2025 21:58-0400 SaO2% (BldA) [Mass fraction] 97 % Dr. Rodri Chauhan MD Work Phone: 5(551)856-889385 [place] [address] 07-04-2025 21:58-0400 Systolic blood pressure 165 mm[Hg] Dr. Rodri Chauhan MD Work Phone: 0(312)530-875585 [place] [address] 07-04-2025 18:08-0400 Body mass index (BMI) [Ratio] 67.8 kg/m2 Dr. Rodri Chauhan MD Work Phone: 5(775)708-015285 [place] [address] 07-04-2025 18:08-0400 Body weight 173.[address] Rodri Chauhan MD Work Phone: 2(818)826-232685 [place] [address] 07-04-2025 18:05-0400 Body height 160.[address] Rodri Chauhan MD Work Phone: 5(676)642-745685 [place] [address] 06-02-2025 13:03-0400 Body height 160.[address] Rodri Chauhan MD Work Phone: 5(918)182-274285 [place] [address] 06-02-2025 13:03-0400 Body weight 163.[address] Rodri Chauhan MD Work Phone: 5(655)759-341785 [place] [address] 05-12-2025 15:21-0400 Body mass index (BMI) [Ratio] 61.34 kg/m2 Johnson Rm APRN.CNS Work Phone: 8(148)868-592314 [place] [address] 05-12-2025 15:21-0400 Body [facility]AREPOINT ARCHITECT Work Phone: [facility] 05-12-2025 15:21-0400 Diastolic blood pressure 82 mm[Hg] Johnson Rm MRI CT TECH.SENIOR SHAREPOINT ARCHITECT Work Phone: [facility] 05-12-2025 15:21-0400 Heart rate 98 /min Johnson Rm MRI CT TECH.SENIOR SHAREPOINT ARCHITECT Work Phone: [facility] 05-12-2025 15:21-0400 Respiratory rate 16 /min Johnson Rm MRI CT TECH.SENIOR SHAREPOINT ARCHITECT Work Phone: [facility] 05-12-2025 15:21-0400 SaO2% (BldA) [Mass fraction] 98 % [facility].SENIOR SHAREPOINT ARCHITECT Work Phone: [facility] 05-12-2025 15:21-0400 Systolic blood pressure 138 mm[Hg] Johnson Rm MRI CT TECH.SENIOR SHAREPOINT ARCHITECT Work Phone: [facility] 05-06-2025 09:46-0400 Body temperature 96.7 [degF] Dr. Rodri Chauhan MD Work Phone: [facility] 05-06-2025 09:46-0400 Diastolic blood pressure 91 mm[Hg] Dr. Rodri Chauhan MD Work Phone: [facility] 05-06-2025 09:46-0400 Heart rate 101 /min Dr. Rodri Chauhan MD Work Phone: [facility] 05-06-2025 09:46-0400 Respiratory rate 16 /min Dr. Rodri Chauhan MD Work Phone: [facility] 05-06-2025 09:46-0400 Systolic blood pressure 169 mm[Hg] Dr. Rodri Chauhan MD Work Phone: [facility] 03-31-2025 10:56-0400 Body height 160.[address] Rodri Chauhan MD Work Phone: [facility] 03-31-2025 10:56-0400 Body weight 165.[address] Rodri Chauhan MD Work Phone: 2(542)988-381285 [place] [address] 03-11-2025 09:40-0400 Body mass index (BMI) [Ratio] 62.5 kg/m2 Dr. Rodri Chauhan MD Work Phone: 7(832)246-302485 [place] [address] 03-11-2025 09:40-0400 Body temperature 97 [degF] Dr. Rodri Chauhan MD Work Phone: 3(715)933-181185 [place] [address] 03-11-2025 09:40-0400 Diastolic blood pressure 91 mm[Hg] Dr. Rodri Chauhan MD Work Phone: 7(744)221-739485 [place] [address] 03-11-2025 09:40-0400 Heart rate 102 /min Dr. Rodri Chauhan MD Work Phone: 5(459)645-690785 [place] [address] 03-11-2025 09:40-0400 Respiratory rate 18 /min Dr. Rodri Chauhan MD Work Phone: 8(137)774-521385 [place] [address] 03-11-2025 09:40-0400 Systolic blood pressure 150 mm[Hg] Dr. Rodri Chauhan MD Work Phone: 9(891)343-241246 [place] [address] 01-30-2025 14:32-0400 Body height 160.[address] Rodri Chauhan MD Work Phone: 7(380)729-910585 [place] [address] 01-30-2025 14:32-0400 Body mass index (BMI) [Ratio] 67.1 kg/m2 Dr. Rodri Chauhan MD Work Phone: 1(613)164-251546 [place] [address] 01-30-2025 14:32-0400 Body weight 172.[address] Rodri Chauhan MD Work Phone: 2(822)730-803346 [place] [address] 01-26-2025 10:49-0400 Body weight 173.[address] Rodri Chauhan MD Work Phone: 4(412)927-880185 [place] [address] 01-20-2025 15:37-0400 Body mass index (BMI) [Ratio] 67.66 kg/m2 Zunilda Jaramillo APRN.CNP Work Phone: [facility] 01-20-2025 15:37-0400 Body weight 170.4 kg Zunilda Ella MRI CT TECH.SENIOR TRAINER Work Phone: [facility] 01-20-2025 15:37-0400 Diastolic blood pressure 74 mm[Hg] Zunilda Ella MRI CT TECH.SENIOR TRAINER Work Phone: [facility] 01-20-2025 15:37-0400 Heart rate 98 /min Zunilda Ella MRI CT TECH.SENIOR TRAINER Work Phone: [facility] 01-20-2025 15:37-0400 SaO2% (BldA) [Mass fraction] 99 % Zunilda Ella MRI CT TECH.SENIOR TRAINER Work Phone: [facility] 01-20-2025 15:37-0400 Systolic blood pressure 128 mm[Hg] Zunilda Ella MRI CT TECH.SENIOR TRAINER Work Phone: [facility] 01-01-2025 15:03-0400 Body mass index (BMI) [Ratio] 67.74 kg/m2 Johnson Rm MRI CT TECH.SENIOR SHAREPOINT ARCHITECT Work Phone: [facility] 01-01-2025 15:03-0400 Body weight 170.6 kg Johnson Rm MRI CT TECH.SENIOR SHAREPOINT ARCHITECT Work Phone: [facility] 01-01-2025 15:03-0400 Diastolic blood pressure 87 mm[Hg] Johnson Rm MRI CT TECH.SENIOR SHAREPOINT ARCHITECT Work Phone: [facility] 01-01-2025 15:03-0400 Heart rate 112 /min Johnson Rm MRI CT TECH.SENIOR SHAREPOINT ARCHITECT Work Phone: [facility] 01-01-2025 15:03-0400 Respiratory rate 16 /min Johnson Rm MRI CT TECH.SENIOR SHAREPOINT ARCHITECT Work Phone: [facility] 01-01-2025 15:03-0400 Systolic blood pressure 137 mm[Hg] Johnson Rm MRI CT TECH.SENIOR SHAREPOINT ARCHITECT Work Phone: [facility] 12-23-2024 13:14-0400 Body mass index (BMI) [Ratio] 68.13 kg/m2 Johnson Rm MRI CT TECH.SENIOR SHAREPOINT ARCHITECT Work Phone: [facility] 12-23-2024 13:14-0400 Body temperature 97.59 [degF] Johnson Rm MRI CT TECH.SENIOR SHAREPOINT ARCHITECT Work Phone: [facility] 12-23-2024 13:14-0400 Body weight 171.6 kg Johnson Rm MRI CT TECH.SENIOR SHAREPOINT ARCHITECT Work Phone: [facility] 12-23-2024 13:14-0400 Diastolic blood pressure 84 mm[Hg] Johnson Rm MRI CT TECH.SENIOR SHAREPOINT ARCHITECT Work Phone: [facility] 12-23-2024 13:14-0400 Heart rate 116 /min Johnson Rm MRI CT TECH.SENIOR SHAREPOINT ARCHITECT Work Phone: [facility] 12-23-2024 13:14-0400 Systolic blood pressure 124 mm[Hg] Johnson Rm MRI CT TECH.SENIOR SHAREPOINT ARCHITECT Work Phone: [facility] 12-16-2024 00:26-0400 Body weight 160.[address] Rodri Chauhan MD Work Phone: [facility] 12-15-2024 14:47-0400 Body temperature 98 [degF] Dr. Rodri Chauhan MD Work Phone: [facility] 12-15-2024 14:47-0400 Diastolic blood pressure 88 mm[Hg] Dr. Rodri Chauhan MD Work Phone: [facility] 12-15-2024 14:47-0400 Heart rate 78 /min Dr. Rodri Chauhan MD Work Phone: [facility] 12-15-2024 14:47-0400 Respiratory rate 18 /min Dr. Rodri Chauhan MD Work Phone: [facility] 12-15-2024 14:47-0400 SaO2% (BldA) [Mass fraction] 95 % Dr. Rodri Chauhan MD Work Phone: [facility] 12-15-2024 14:47-0400 Systolic blood pressure 138 mm[Hg] Dr. Rodri Chauhan MD Work Phone: [facility] 12-15-2024 11:48-0400 Body mass index (BMI) [Ratio] 66.6 kg/m2 Dr. Rodri Chauhan MD Work Phone: [facility] 12-15-2024 11:48-0400 Body weight 170.[address] Rodri Chauhan MD Work Phone: [facility] 12-15-2024 11:45-0400 Body height 160.[address] Rodri Chauhan MD Work Phone: [facility] 12-12-2024 10:19-0400 Body height 158.7 cm Jorge Driscoll MD Work Phone: [facility] Comment on above: Verified with Anahi Muñoz RN 12-12-2024 10:19-0400 Body mass index (BMI) [Ratio] 67.81 kg/m2 Jorge Driscoll MD Work Phone: [facility] 12-12-2024 10:19-0400 Body temperature 97.59 [degF] Jorge Driscoll MD Work Phone: [facility] 12-12-2024 10:19-0400 Body weight 170.78 kg Jorge Driscoll MD Work Phone: [facility] 12-12-2024 10:19-0400 Diastolic blood pressure 60 mm[Hg] Jorge Driscoll MD Work Phone: [facility] 12-12-2024 10:19-0400 Heart rate 100 /min Jorge Driscoll MD Work Phone: [facility] 12-12-2024 10:19-0400 SaO2% (BldA) [Mass fraction] 100 % Jorge Driscoll MD Work Phone: [facility] 12-12-2024 10:19-0400 Systolic blood pressure 130 mm[Hg] Jorge Driscoll MD Work Phone: [facility] 12-10-2024 10:09-0400 Body mass index (BMI) [Ratio] 62.5 kg/m2 Dr. Rodri Chauhan MD Work Phone: [facility] 12-10-2024 10:09-0400 Body temperature 97.8 [degF] Dr. Rodri Chauhan MD Work Phone: [facility] 12-10-2024 10:09-0400 Diastolic blood pressure 90 mm[Hg] Dr. Rodri Chauhan MD Work Phone: [facility] 12-10-2024 10:09-0400 Heart rate 107 /min Dr. Rodri Chauhan MD Work Phone: 9(745)149-533246 [place] [address] 12-10-2024 10:09-0400 Respiratory rate 16 /min Dr. Rodri Chauhan MD Work Phone: [facility] 12-10-2024 10:09-0400 Systolic blood pressure 139 mm[Hg] Dr. Rodri Chauhan MD Work Phone: [facility] 12-03-2024 10:50-0400 Body weight 167.[address] Rodri Chauhan MD Work Phone: [facility] 11-15-2024 02:15-0500 Body weight 160.[address] Rodri Chauhan MD Work Phone: [facility] 11-13-2024 10:15-0500 Body mass index (BMI) [Ratio] 63.43 kg/m2 Erendira Noe APRN.SENIOR TRAINER Work Phone: [facility] 11-13-2024 10:15-0500 Body temperature 98.8 [degF] Erendira Noe APRN.SENIOR TRAINER Work Phone: [facility] 11-13-2024 10:15-0500 Body weight 165 kg Erendira Noe APRN.SENIOR TRAINER Work Phone: [facility] 11-13-2024 10:15-0500 Diastolic blood pressure 85 mm[Hg] Erendira Noe APRN.SENIOR TRAINER Work Phone: [facility] 11-13-2024 10:15-0500 Heart rate 104 /min Erendira Noe APRN.SENIOR TRAINER Work Phone: [facility] 11-13-2024 10:15-0500 Respiratory rate 20 /min Erendira Noe APRN.SENIOR TRAINER Work Phone: [facility] 11-13-2024 10:15-0500 SaO2% (BldA) [Mass fraction] 96 % Erendira Noe APRN.SENIOR TRAINER Work Phone: [facility] 11-13-2024 10:15-0500 Systolic blood pressure 160 mm[Hg] Erendira Noe MRI CT TECH.SENIOR TRAINER Work Phone: [facility] 11-12-2024 12:26-0500 Body mass index (BMI) [Ratio] 62.5 kg/m2 Dr. Rodri Chauhan MD Work Phone: [facility] 11-12-2024 12:26-0500 Body temperature 97.5 [degF] Dr. Rodri Chauhan MD Work Phone: [facility] 11-12-2024 12:26-0500 Diastolic blood pressure 86 mm[Hg] Dr. Rodri Chauhan MD Work Phone: [facility] 11-12-2024 12:26-0500 Heart rate 103 /min Dr. Rodri Chauhan MD Work Phone: [facility] 11-12-2024 12:26-0500 Respiratory rate 18 /min Dr. Rodri Chauhan MD Work Phone: [facility] 11-12-2024 12:26-0500 Systolic blood pressure 152 mm[Hg] Dr. Rodri Chauhan MD Work Phone: [facility] 10-20-2024 14:37-0500 Body mass index (BMI) [Ratio] 65.73 kg/m2 Preeti Kaba APRN.SENIOR TRAINER Work Phone: [facility] 10-20-2024 14:37-0500 Body weight 171 kg Preeti Evan MRI CT TECH.SENIOR TRAINER Work Phone: [facility] 10-20-2024 14:37-0500 Diastolic blood pressure 74 mm[Hg] Preeti Evan MRI CT TECH.SENIOR TRAINER Work Phone: [facility] 10-20-2024 14:37-0500 Heart rate 96 /min Preeti Evan MRI CT TECH.SENIOR TRAINER Work Phone: [facility] 10-20-2024 14:37-0500 Respiratory rate 14 /min Preeti Evan MRI CT TECH.SENIOR TRAINER Work Phone: [facility] 10-20-2024 14:37-0500 SaO2% (BldA) [Mass fraction] 98 % Preeti BennettEvan MRI CT TECH.SENIOR TRAINER Work Phone: [facility] 10-20-2024 14:37-0500 Systolic blood pressure 132 mm[Hg] Preeti GuilloryEvan MRI CT TECH.SENIOR TRAINER Work Phone: [facility] 10-18-2024 01:55-0500 Body weight 160.[address] Rodri Chauhan MD Work Phone: [facility] 10-18-2024 01:29-0500 Body weight 170.[address] Rodri Chauhan MD Work Phone: [facility] 10-17-2024 15:02-0500 Diastolic blood pressure 89 mm[Hg] Johnson Rm MRI CT TECH.SENIOR SHAREPOINT ARCHITECT Work Phone: [facility] 10-17-2024 15:02-0500 Heart rate 97 /min Johnson Bakers MRI CT TECH.SENIOR SHAREPOINT ARCHITECT Work Phone: [facility] 10-17-2024 15:02-0500 Systolic blood pressure 138 mm[Hg] Johnson Rm MRI CT TECH.SENIOR SHAREPOINT ARCHITECT Work Phone: [facility] 10-17-2024 15:01-0500 Body mass index (BMI) [Ratio] 64.96 kg/m2 Johnson Rm MRI CT TECH.SENIOR SHAREPOINT ARCHITECT Work Phone: [facility] 10-17-2024 15:01-0500 Body weight 169 kg Johnson Rm MRI CT TECH.SENIOR SHAREPOINT ARCHITECT Work Phone: [facility] 10-17-2024 15:01-0500 Respiratory rate 16 /min Johnson Rm MRI CT TECH.SENIOR SHAREPOINT ARCHITECT Work Phone: [facility] 10-17-2024 11:19-0500 Body mass index (BMI) [Ratio] 62.5 kg/m2 Dr. Rodri Chauhan MD Work Phone: 7(558)144-078146 [place] [address] 10-17-2024 11:19-0500 Body temperature 96.7 [degF] Dr. Rodri Chauhan MD Work Phone: 0(123)643-241685 [place] [address] 10-17-2024 11:19-0500 Diastolic blood pressure 89 mm[Hg] Dr. Rodri Chauhan MD Work Phone: 1(393)453-679285 [place] [address] 10-17-2024 11:19-0500 Heart rate 105 /min Dr. Rodri Chauhan MD Work Phone: 7(927)906-894046 [place] [address] 10-17-2024 11:19-0500 Respiratory rate 18 /min Dr. Rodri Chauhan MD Work Phone: 5(596)030-882785 [place] [address] 10-17-2024 11:19-0500 Systolic blood pressure 161 mm[Hg] Dr. Rodri Chauhan MD Work Phone: 0(799)423-808946 [place] [address] 09-23-2024 14:00-0500 Body weight 170.[address] Rodri Chauhan MD Work Phone: 4(177)775-111046 [place] [address] 09-18-2024 15:44-0500 Body temperature 97.4 [degF] Dr. Rodri Chauhan MD Work Phone: 4(767)793-967385 [place] [address] 09-18-2024 15:44-0500 Body weight [address] Rodri Chauhan MD Work Phone: 5(042)905-617846 [place] [address] 09-18-2024 15:44-0500 Diastolic blood pressure 79 mm[Hg] Dr. Rodri Chauhan MD Work Phone: 4(720)291-914446 [place] [address] 09-18-2024 15:44-0500 Heart rate 108 /min Dr. Rodri Chauhan MD Work Phone: 6(451)593-827285 [place] [address] 09-18-2024 15:44-0500 Respiratory rate 16 /min Dr. Rodri Chauhan MD Work Phone: 7(236)559-196885 [place] [address] 09-18-2024 15:44-0500 SaO2% (BldA) [Mass fraction] 96 % Dr. Rodri Chauhan MD Work Phone: 2(010)021-020385 [place] [address] 09-18-2024 15:44-0500 Systolic blood pressure 138 mm[Hg] Dr. Rodri Chauhan MD Work Phone: 8(132)324-977285 [place] [address] 09-17-2024 00:23-0500 Body weight 160.[address] Rodri Chauhan MD Work Phone: 6(591)986-392685 [place] [address] 09-16-2024 10:44-0500 Body mass index (BMI) [Ratio] 62.5 kg/m2 Dr. Rodri Chauhan MD Work Phone: 8(103)360-502885 [place] [address] 09-16-2024 10:44-0500 Body temperature 96.7 [degF] Dr. Rodri Chauhan MD Work Phone: 9(114)583-998785 [place] [address] 09-16-2024 10:44-0500 Diastolic blood pressure 89 mm[Hg] Dr. Rodri Chauhan MD Work Phone: 6(368)540-708985 [place] [address] 09-16-2024 10:44-0500 Heart rate 107 /min Dr. Rodri Chauhan MD Work Phone: 7(217)089-519485 [place] [address] 09-16-2024 10:44-0500 Respiratory rate 18 /min Dr. Rodri Chauhan MD Work Phone: 7(251)624-878685 [place] [address] 09-16-2024 10:44-0500 Systolic blood pressure 156 mm[Hg] Dr. Rodri Chauhan MD Work Phone: 1(306)465-159085 [place] [address] 08-17-2024 00:42-0500 Body weight 160.[address] Rodri Chauhan MD Work Phone: [facility] 07-01-2024 13:10-0400 Diastolic blood pressure 84 mm[Hg] Rodri Chauhan MD Work Phone: [facility] 07-01-2024 13:10-0400 Heart rate 108 /min Rodri Chauhan MD Work Phone: [facility] 07-01-2024 13:10-0400 Systolic blood pressure 139 mm[Hg] Rodri Chauhan MD Work Phone: [facility] 07-01-2024 13:08-0400 Body mass index (BMI) [Ratio] 67.08 kg/m2 Rodri Chauhan MD Work Phone: [facility] 07-01-2024 13:08-0400 Body weight 174.5 kg Rodri Chauhan MD Work Phone: [facility] 07-01-2024 13:08-0400 Respiratory rate 20 /min Rodri Chauhan MD Work Phone: [facility] 06-02-2024 11:06-0400 Body mass index (BMI) [Ratio] 68.38 kg/m2 Nanci Collado MRI CT TECH.SENIOR TRAINER Work Phone: [facility] 06-02-2024 11:06-0400 Body temperature 99 [degF] Nanci Collado MRI CT TECH.SENIOR TRAINER Work Phone: [facility] 06-02-2024 11:06-0400 Body weight 177.9 kg Nanci Collado MRI CT TECH.SENIOR TRAINER Work Phone: [facility] 06-02-2024 11:06-0400 Diastolic blood pressure 84 mm[Hg] Nanci Collado MRI CT TECH.SENIOR TRAINER Work Phone: [facility] 06-02-2024 11:06-0400 Heart rate 115 /min Nanci Collado MRI CT TECH.SENIOR TRAINER Work Phone: [facility] 06-02-2024 11:06-0400 Respiratory rate 24 /min Nanci Collado MRI CT TECH.SENIOR TRAINER Work Phone: [facility] 06-02-2024 11:06-0400 SaO2% (BldA) [Mass fraction] 98 % Nanci Collado MRI CT TECH.SENIOR TRAINER Work Phone: [facility] 06-02-2024 11:06-0400 Systolic blood pressure 128 mm[Hg] Nanci Collado MRI CT TECH.SENIOR TRAINER Work Phone: [facility] 05-13-2024 18:41-0400 Body mass index (BMI) [Ratio] 69.65 kg/m2 Michela Praisler-Wood MRI CT TECH.SENIOR TRAINER Work Phone: [facility] 05-13-2024 18:41-0400 Body temperature 99 [degF] Michela Praisler-Wood MRI CT TECH.SENIOR TRAINER Work Phone: [facility] 05-13-2024 18:41-0400 Body weight 181.2 kg Michela Praisler-Wood MRI CT TECH.SENIOR TRAINER Work Phone: [facility] 05-13-2024 18:41-0400 Diastolic blood pressure 84 mm[Hg] Michela Praisler-Wood MRI CT TECH.SENIOR TRAINER Work Phone: [facility] 05-13-2024 18:41-0400 Heart rate 106 /min Michela Praisler-Wood MRI CT TECH.SENIOR TRAINER Work Phone: [facility] 05-13-2024 18:41-0400 Respiratory rate 20 /min Michela Praisler-Wood MRI CT TECH.SENIOR TRAINER Work Phone: [facility] 05-13-2024 18:41-0400 SaO2% (BldA) [Mass fraction] 96 % Michela Praisler-Wood MRI CT TECH.SENIOR TRAINER Work Phone: [facility] 05-13-2024 18:41-0400 Systolic blood pressure 142 mm[Hg] Michela Praisler-Wood MRI CT TECH.SENIOR TRAINER Work Phone: [facility] 04-24-2024 16:51-0400 Body mass index (BMI) [Ratio] 68.77 kg/m2 Rodri Chauhan MD Work Phone: [facility] 04-24-2024 16:51-0400 Body temperature 99.7 [degF] Rodri Chauhan MD Work Phone: [facility] 04-24-2024 16:51-0400 Body weight 178.9 kg Rodri Chauhan MD Work Phone: [facility] 04-24-2024 16:51-0400 Diastolic blood pressure 82 mm[Hg] Rodri Chauhan MD Work Phone: [facility] 04-24-2024 16:51-0400 Heart rate 111 /min Rodir Chauhan MD Work Phone: [facility] 04-24-2024 16:51-0400 SaO2% (BldA) [Mass fraction] 97 % Rodri Chauhan MD Work Phone: [facility] 04-24-2024 16:51-0400 Systolic blood pressure 152 mm[Hg] Rodri Chauhan MD Work Phone: [facility] 01-09-2024 15:26-0400 Body mass index (BMI) [Ratio] 62.5 kg/m2 [facility] 01-09-2024 15:26-0400 Diastolic blood pressure 85 mm[Hg] [facility] 01-09-2024 15:26-0400 Heart rate 113 /min [facility] 01-09-2024 15:26-0400 Respiratory rate 18 /min [facility] 01-09-2024 15:26-0400 Systolic blood pressure 143 mm[Hg] [facility] 01-04-2024 10:26-0400 Body temperature 98 [degF] [facility] 12-17-2023 00:36-0400 Body weight 160.22 kg [facility] 12-12-2023 14:10-0400 Body mass index (BMI) [Ratio] 62.5 kg/m2 [facility] 12-12-2023 14:10-0400 Body temperature 97 [degF] [facility] 12-12-2023 14:10-0400 Diastolic blood pressure 76 mm[Hg] [facility] 12-12-2023 14:10-0400 Heart rate 108 /min [facility] 12-12-2023 14:10-0400 Respiratory rate 22 /min [facility] 12-12-2023 14:10-0400 Systolic blood pressure 158 mm[Hg] [facility] 12-07-2023 15:03-0400 Body weight 169.74 kg Zunilda Ella MRI CT TECH.SENIOR TRAINER Work Phone: [facility] 12-07-2023 15:03-0400 Diastolic blood pressure 80 mm[Hg] Zunilda Ella MRI CT TECH.SENIOR TRAINER Work Phone: [facility] 12-07-2023 15:03-0400 Heart rate 102 /min Zunilda Ella MRI CT TECH.SENIOR TRAINER Work Phone: [facility] 12-07-2023 15:03-0400 Respiratory rate 20 /min Zunilda Ella MRI CT TECH.SENIOR TRAINER Work Phone: [facility] 12-07-2023 15:03-0400 SaO2% (BldA) [Mass fraction] 98 % Zunilda Ella MRI CT TECH.SENIOR TRAINER Work Phone: [facility] 12-07-2023 15:03-0400 Systolic blood pressure 138 mm[Hg] Zunilda Ella MRI CT TECH.SENIOR TRAINER Work Phone: [facility] 11-16-2023 00:08-0500 Body weight 160.22 kg [facility] 11-14-2023 14:45-0500 Body mass index (BMI) [Ratio] 62.5 kg/m2 [facility] 11-14-2023 14:45-0500 Diastolic blood pressure 91 mm[Hg] [facility] 11-14-2023 14:45-0500 Heart rate 120 /min [facility] 11-14-2023 14:45-0500 Respiratory rate 18 /min [facility] 11-14-2023 14:45-0500 Systolic blood pressure 168 mm[Hg] [facility] 11-12-2023 13:14-0500 Body temperature 98 [degF] [facility] 10-18-2023 00:13-0500 Body weight 160.22 kg [facility] 10-17-2023 15:22-0500 Body mass index (BMI) [Ratio] 62.5 kg/m2 [facility] 10-17-2023 15:22-0500 Body temperature 96.6 [degF] [facility] 10-17-2023 15:22-0500 Diastolic blood pressure 93 mm[Hg] [facility] 10-17-2023 15:22-0500 Heart rate 119 /min [facility] 10-17-2023 15:22-0500 Respiratory rate 20 /min [facility] 10-17-2023 15:22-0500 Systolic blood pressure 169 mm[Hg] [facility] 09-28-2023 08:44-0500 Body temperature 96.8 [degF] [facility] 09-28-2023 08:44-0500 Diastolic blood pressure 80 mm[Hg] [facility] 09-28-2023 08:44-0500 Heart rate 104 /min [facility] 09-28-2023 08:44-0500 Respiratory rate 18 /min [facility] 09-28-2023 08:44-0500 SaO2% (BldA) [Mass fraction] 99 % [facility] 09-28-2023 08:44-0500 Systolic blood pressure 160 mm[Hg] [facility] 09-28-2023 06:41-0500 Body height 160.02 cm [facility] 09-28-2023 06:41-0500 Body mass index (BMI) [Ratio] 63.6 kg/m2 [facility] 09-28-2023 06:41-0500 Body weight 163 kg [facility] 09-19-2023 15:25-0500 Body mass index (BMI) [Ratio] 62.5 kg/m2 [facility] 09-19-2023 15:25-0500 Body temperature 97.3 [degF] [facility] 09-19-2023 15:25-0500 Diastolic blood pressure 89 mm[Hg] [facility] 09-19-2023 15:25-0500 Heart rate 111 /min [facility] 09-19-2023 15:25-0500 Respiratory rate 18 /min [facility] 09-19-2023 15:25-0500 Systolic blood pressure 164 mm[Hg] [facility] 09-17-2023 00:13-0500 Body weight 160.22 kg [facility] 09-05-2023 15:13-0500 Body mass index (BMI) [Ratio] 62.5 kg/m2 [facility] 09-05-2023 15:13-0500 Body temperature 97.3 [degF] [facility] 09-05-2023 15:13-0500 Diastolic blood pressure 78 mm[Hg] [facility] 09-05-2023 15:13-0500 Heart rate 101 /min [facility] 09-05-2023 15:13-0500 Respiratory rate 22 /min [facility] 09-05-2023 15:13-0500 Systolic blood pressure 150 mm[Hg] [facility] 08-17-2023 00:15-0500 Body weight 160.22 kg [facility] 08-15-2023 15:04-0500 Body mass index (BMI) [Ratio] 62.5 kg/m2 [facility] 08-15-2023 15:04-0500 Body temperature 96.9 [degF] [facility] 08-15-2023 15:04-0500 Diastolic blood pressure 71 mm[Hg] [facility] 08-15-2023 15:04-0500 Heart rate 108 /min [facility] 08-15-2023 15:04-0500 Respiratory rate 22 /min [facility] 08-15-2023 15:04-0500 Systolic blood pressure 124 mm[Hg] [facility] 07-23-2023 15:39-0500 Body temperature 97.3 [degF] [facility] Work Phone: [facility] 07-23-2023 15:39-0500 Body weight 163.29 kg [facility] Work Phone: [facility] 07-23-2023 15:39-0500 Diastolic blood pressure 80 mm[Hg] [facility] Work Phone: [facility] 07-23-2023 15:39-0500 Heart rate 106 /min [facility] Work Phone: [facility] 07-23-2023 15:39-0500 Respiratory rate 16 /min [facility] Work Phone: [facility] 07-23-2023 15:39-0500 SaO2% (BldA) [Mass fraction] 98 % [facility] Work Phone: [facility] 07-23-2023 15:39-0500 Systolic blood pressure 120 mm[Hg] [facility] Work Phone: [facility] 07-18-2023 00:29-0400 Body weight 160.22 kg [facility] 07-17-2023 11:09-0400 Body mass index (BMI) [Ratio] 62.5 kg/m2 [facility] 07-17-2023 11:09-0400 Body temperature 96.1 [degF] [facility] 07-17-2023 11:09-0400 Diastolic blood pressure 90 mm[Hg] [facility] 07-17-2023 11:09-0400 Heart rate 105 /min [facility] 07-17-2023 11:09-0400 Respiratory rate 18 /min [facility] 07-17-2023 11:09-0400 Systolic blood pressure 173 mm[Hg] [facility] 07-13-2023 14:58-0400 Body weight 159.21 kg Zunilda Ella MRI CT TECH.SENIOR TRAINER Work Phone: [facility] 07-13-2023 14:58-0400 Diastolic blood pressure 78 mm[Hg] Zunilda Ella MRI CT TECH.SENIOR TRAINER Work Phone: [facility] 07-13-2023 14:58-0400 Heart rate 99 /min Zunilda Ella MRI CT TECH.SENIOR TRAINER Work Phone: [facility] 07-13-2023 14:58-0400 SaO2% (BldA) [Mass fraction] 98 % Zunilda Ella MRI CT TECH.SENIOR TRAINER Work Phone: [facility] 07-13-2023 14:58-0400 Systolic blood pressure 110 mm[Hg] Zunilda Ella MRI CT TECH.SENIOR TRAINER Work Phone: [facility] 06-20-2023 14:54-0400 Body height 160.02 cm [facility] 06-20-2023 14:54-0400 Body weight 160.22 kg [facility] 05-04-2023 14:43-0400 Body weight 160.12 kg Zunilda Ella MRI CT TECH.SENIOR TRAINER Work Phone: [facility] 05-04-2023 14:43-0400 Diastolic blood pressure 70 mm[Hg] Zunilda Ella MRI CT TECH.SENIOR TRAINER Work Phone: [facility] 05-04-2023 14:43-0400 Heart rate 110 /min Zunilda Ella MRI CT TECH.SENIOR TRAINER Work Phone: [facility] 05-04-2023 14:43-0400 SaO2% (BldA) [Mass fraction] 98 % Zunilda Ella MRI CT TECH.SENIOR TRAINER Work Phone: [facility] 05-04-2023 14:43-0400 Systolic blood pressure 136 mm[Hg] Zunilda Ella MRI CT TECH.SENIOR TRAINER Work Phone: [facility] 04-27-2023 17:32-0400 Body temperature 98.1 [degF] Rodri Chauhan MD Work Phone: [facility] 04-27-2023 17:32-0400 Body weight 166.02 kg Rodri Chauhan MD Work Phone: [facility] 04-27-2023 17:32-0400 Diastolic blood pressure 74 mm[Hg] Rodri Chauhan MD Work Phone: [facility] 04-27-2023 17:32-0400 Heart rate 110 /min Rodri Chauhan MD Work Phone: [facility] 04-27-2023 17:32-0400 Respiratory rate 18 /min Rodri Chauhan MD Work Phone: [facility] 04-27-2023 17:32-0400 SaO2% (BldA) [Mass fraction] 98 % Rodri Chauhan MD Work Phone: [facility] 04-27-2023 17:32-0400 Systolic blood pressure 119 mm[Hg] Rodri Chauhan MD Work Phone: [facility] 03-06-2023 14:04-0400 Body weight 168.74 kg Johnsno Rm MRI CT TECH.SENIOR SHAREPOINT ARCHITECT Work Phone: [facility] 03-06-2023 14:04-0400 Diastolic blood pressure 78 mm[Hg] Johnson Rm MRI CT TECH.SENIOR SHAREPOINT ARCHITECT Work Phone: [facility] 03-06-2023 14:04-0400 Heart rate 104 /min Johnson Rm MRI CT TECH.SENIOR SHAREPOINT ARCHITECT Work Phone: [facility] 03-06-2023 14:04-0400 Respiratory rate 20 /min Johnson Rm MRI CT TECH.SENIOR SHAREPOINT ARCHITECT Work Phone: [facility] 03-06-2023 14:04-0400 Systolic blood pressure 124 mm[Hg] Johnson Rm MRI CT TECH.SENIOR SHAREPOINT ARCHITECT Work Phone: [facility] 02-19-2023 15:33-0400 Body weight 171.91 kg Zunilda Ella MRI CT TECH.SENIOR TRAINER Work Phone: [facility] 02-19-2023 15:33-0400 Diastolic blood pressure 68 mm[Hg] Zunilda Ella MRI CT TECH.SENIOR TRAINER Work Phone: [facility] 02-19-2023 15:33-0400 Heart rate 111 /min Zunilda Ella MRI CT TECH.SENIOR TRAINER Work Phone: [facility] 02-19-2023 15:33-0400 SaO2% (BldA) [Mass fraction] 98 % Zunilda Ella MRI CT TECH.SENIOR TRAINER Work Phone: [facility] 02-19-2023 15:33-0400 Systolic blood pressure 120 mm[Hg] Zunilda Ella MRI CT TECH.SENIOR TRAINER Work Phone: [facility] 12-09-2022 13:16-0400 Body height 161.29 cm [facility] 12-09-2022 13:16-0400 Body mass index (BMI) [Ratio] 65.2 kg/m2 [facility] 12-09-2022 13:16-0400 Body temperature 96.7 [degF] [facility] 12-09-2022 13:16-0400 Body weight 169.68 kg [facility] 12-09-2022 13:16-0400 Diastolic blood pressure 68 mm[Hg] [facility] 12-09-2022 13:16-0400 Heart rate 96 /min [facility] 12-09-2022 13:16-0400 Respiratory rate 18 /min [facility] 12-09-2022 13:16-0400 SaO2% (BldA) [Mass fraction] 100 % [facility] 12-09-2022 13:16-0400 Systolic blood pressure 147 mm[Hg] [facility] 09-07-2022 23:29-0500 Body temperature 97.8 [degF] [facility] 09-07-2022 23:29-0500 Diastolic blood pressure 107 mm[Hg] [facility] 09-07-2022 23:29-0500 Heart rate 106 /min [facility] 09-07-2022 23:29-0500 Respiratory rate 24 /min [facility] 09-07-2022 23:29-0500 SaO2% (BldA) [Mass fraction] 97 % [facility] 09-07-2022 23:29-0500 Systolic blood pressure 177 mm[Hg] [facility] 09-07-2022 21:27-0500 Body height 160.02 cm [facility] Work Phone: 09-07-2022 21:27-0500 Body mass index (BMI) [Ratio] 69.1 kg/m2 [facility] 09-07-2022 21:27-0500 Body weight 177.1 kg [facility] 07-25-2022 17:31-0500 Heart rate 67 /min [facility] Work Phone: 07-25-2022 15:20-0500 Body temperature 96.7 [degF] [facility] Work Phone: 07-25-2022 15:20-0500 Diastolic blood pressure 78 mm[Hg] [facility] Work Phone: 07-25-2022 15:20-0500 Respiratory rate 18 /min [facility] Work Phone: 07-25-2022 15:20-0500 SaO2% (BldA) [Mass fraction] 100 % [facility] Work Phone: 07-25-2022 15:20-0500 Systolic blood pressure 135 mm[Hg] [facility] Work Phone: 07-25-2022 14:57-0500 Body mass index (BMI) [Ratio] 62.7 kg/m2 [facility] Work Phone: 07-25-2022 14:57-0500 Body weight 163.29 kg [facility] Work Phone: 06-01-2022 20:51-0400 Diastolic blood pressure 90 mm[Hg] [facility] Work Phone: 06-01-2022 20:51-0400 Heart rate 80 /min [facility] Work Phone: 06-01-2022 20:51-0400 Respiratory rate 18 /min [facility] Work Phone: 06-01-2022 20:51-0400 SaO2% (BldA) [Mass fraction] 99 % [facility] Work Phone: 06-01-2022 20:51-0400 Systolic blood pressure 138 mm[Hg] [facility] Work Phone: 06-01-2022 18:06-0400 Body temperature 98.8 [degF] [facility] Work Phone: 06-01-2022 18:00-0400 Body height 160.02 cm [facility] Work Phone: 06-01-2022 18:00-0400 Body mass index (BMI) [Ratio] 64.9 kg/m2 [facility] Work Phone: 06-01-2022 18:00-0400 Body weight 166.2 kg [facility] Work Phone: Encounters Encounter Date Encounter Type Care Provider Facility Start: 07-29-2025 ambulatory Rodri D Talampas Facilit y:[facility] Start: 07-17-2025 End: 07-17-2025 ambulatory Rodri D Talampas Facility:[facility] Start: 07-14-2025 ambulatory Rodri D Talampas Facilit y:[facility] Start: 07-10-2025 End: 07-10-2025 ambulatory RODRI D TALAMPAS Facility:[facility] Start: 07-09-2025 End: 07-09-2025 ambulatory RODRI D TALAMPAS Facility:[facility] Start: 07-04-2025 End: 07-04-2025 Emergency department patient visit Dr. Carri Sweeney DO -Emergency Department Work Phone: Start: 06-23-2025 End: 06-23-2025 ambulatory RODRI D TALAMPAS Facility:[facility] Start: 06-02-2025 End: 06-16-[address] Sebas Lord DPM -Nutritional Services Work Phone: Start: 06-02-2025 End: 06-16-2025 Refill Rodri Chauhan MD Work Phone: [facility] Comment on above: Refill Request Start: 05-29-2025 End: 06-03-2025 Refill Rodri Chauhan MD Work Phone: [facility] Comment on above: Refill Request Start: 05-27-2025 End: 05-28-2025 Refill Rodri Chauhan MD Work Phone: [facility] Comment on above: Refill Request Start: 05-20-2025 End: 05-22-2025 ambulatory Rodri Chauhan MD Work Phone: [facility] Comment on above: Meds Start: 05-19-2025 End: 05-25-2025 Refill Rodri Chauhan MD Work Phone: [facility] Comment on above: Refill Request Meds Start: 05-18-2025 End: 05-21-2025 Refill Johnson Rm APRN.SENIOR SHAREPOINT ARCHITECT Work Phone: [facility] Comment on above: Refill Request Start: 05-12-2025 End: 05-12-2025 Office outpatient visit 25 minutes Johnson Rm APRN.SENIOR SHAREPOINT ARCHITECT Work Phone: [facility] Comment on above: Type 2 diabetes rex itus with other skin ulcer, without long- term current use of insulin (HCC) (Primary Dx); Screening for diabetic retinopathy; Diabetes mellitus type 2, controlled, without complications (HCC); Screening for depression; Encounter for screening examination for other mental health and behavioral disorders; Encounter for immunization; Moderate depressed bipolar I disorder (HCC); Platelet disorder (HCC); Chronic midline low back pain, unspecified whether sciatica present; Radiculopathy of lumbar region; Chronic midline low back pain with bilateral sciatica; Migraine without aura and without status migrainosus, not intractable; Uncontrolled type 2 diabetes mellitus with hyperglycemia (HCC); Grief; Obesity, Class III, BMI >= 40; Nicotine dependence, cigarettes, uncomplicated Start: 05-12-2025 End: 05-12-2025 ambulatory Rodri Chauhan MD Work Phone: [facility] Comment on above: Meds Start: 05-11-2025 End: 05-12-2025 Refill Rodri Chauhan MD Work Phone: [facility] Comment on above: Refill Request Start: 05-06-2025 End: 05-14-[address] Sebas Lord [facility] Work Phone: Start: 05-06-2025 End: 05-14-2025 Refill Rodri Chauhan MD Work Phone: [facility] Comment on above: Refill Request Start: 05-04-2025 End: 05-05-2025 Refill Rodri Chauhan MD Work Phone: [facility] Comment on above: Refill Request Start: 04-29-2025 End: 05-06-2025 ambulatory Nanci Cook PT [facility] Physical Therapy Comment on above: Chronic left-sided l ow back pain, unspecified whether sciatica present (Primary Dx) test results Start: 04-28-2025 End: 04-28-2025 ambulatory Rodri Chauhan MD Work Phone: [facility] Comment on above: Labs Start: 04-27-2025 End: 04-29-2025 Refill Rodri Chauhan MD Work Phone: [facility] Comment on above: Refill Request Lab Start: 04-22-2025 End: 05-06-2025 ambulatory Rodri Chauhan MD Work Phone: [facility] Comment on above: Lab Start: 04-19-2025 End: 05-06-2025 ambulatory Rodri Chauhan MD Work Phone: [facility] Comment on above: Dr chauhan Start: 04-15-2025 End: 04-15-2025 ambulatory Rodri Chauhan MD Work Phone: [facility] Comment on above: Med Refill Request Start: 04-14-2025 End: 04-15-2025 Refill Rodri Chauhan MD Work Phone: [facility] Comment on above: Refill Request Start: 04-13-2025 End: 04-14-2025 Refill Rodri Chauhan MD Work Phone: [facility] Comment on above: Refill Request Start: 04-09-2025 End: 04-14-2025 Refill Rodri Chauhan MD Work Phone: [facility] Comment on above: Refill Request (See Rx notes) Refill Request Start: 04-08-2025 End: 04-08-2025 Refill Rodri Chauhan MD Work Phone: [facility] Comment on above: Refill Request medication Medication Problem ( [place]/) Start: 04-07-2025 End: 04-08-2025 ambulatory Rodri Chauhan MD Work Phone: [facility] Comment on above: medicine Start: 04-06-2025 End: 04-08-2025 Refill Rodri Chauhan MD Work Phone: [facility] Comment on above: Refill Request; Stat us of Rx Start: 04-05-2025 End: 04-08-2025 E-mail encounter from caregiver [facility] Start: 04-05-2025 End: 04-08-2025 Patient encounter procedure [facility] Comment on above: Appointment Request Start: 04-03-2025 End: 04-08-2025 Refill Rodri Chauhan MD Work Phone: [facility] Comment on above: Refill Request Start: 03-31-2025 End: 04-16-[address] Sebas Lord DPM -Nutritional Services Work Phone: Start: 03-31-2025 End: 04-16-2025 ambulatory Rodri Chauhan MD Work Phone: [facility] Comment on above: medicine Start: 03-29-2025 End: 04-01-2025 Refill Rodri Chauhan MD Work Phone: [facility] Comment on above: Refill Request (See RX notes) Start: 03-27-2025 End: 03-27-2025 ambulatory Nanci Cook PT [facility] Physical Therapy Comment on above: Chronic left-sided l ow back pain, unspecified whether sciatica present (Primary Dx) Start: 03-23-2025 End: 03-24-2025 Refill Rodri Chauhan MD Work Phone: [facility] Comment on above: Refill Request Start: 03-17-2025 End: 03-17-2025 Refraúl Chauhan MD Work Phone: [facility] Comment on above: Refill Request Start: 03-15-2025 End: 03-17-2025 Refill Rodri Chauhan MD Work Phone: [facility] Comment on above: Refill Request Start: 03-13-2025 End: 03-13-2025 ambulatory Nanci Joe PT [facility] Physical Therapy Comment on above: Chronic left-sided l ow back pain, unspecified whether sciatica present (Primary Dx) Start: 03-11-2025 End: 03-16-[address] Rodri Chauhan MD Work Phone: [facility] Start: 03-11-2025 End: 03-16-[address] Sebas Lord [facility] Work Phone: Start: 03-07-2025 End: 03-17-2025 Refill Rodri Chauhan MD Work Phone: [facility] Comment on above: Refill Request Start: 03-02-2025 End: 03-03-2025 Refill Rodri Chauhan MD Work Phone: [facility] Comment on above: Refill Request Start: 02-27-2025 End: 02-28-2025 Refill Rodri Chauhan MD Work Phone: [facility] Comment on above: Refill Request Start: 02-24-2025 End: 02-24-2025 Refill Rodri Chauhan MD Work Phone: [facility] Comment on above: Refill Request Chronic midline low back pain, unspecified whether sciatica present (Primary Dx); Radiculopathy of lumbar region Start: 02-23-2025 End: 02-24-2025 Refill Rodri Chauhan MD Work Phone: [facility] Comment on above: Refill Request Start: 02-17-2025 End: 02-17-2025 Refill Rodri Chauhan MD Work Phone: [facility] Comment on above: Refill Request Start: 02-16-2025 End: 02-16-2025 Refill Rodri Chauhan MD Work Phone: [facility] Comment on above: Refill Request Start: 02-10-2025 End: 02-10-2025 ambulatory Rodri Chauhan MD Work Phone: [facility] Comment on above: Back Pain Start: 02-10-2025 End: 02-11-2025 Telephone encounter Rodri Chauhan MD Work Phone: [facility] Comment on above: Orders Start: 02-09-2025 End: 02-10-2025 Refill Rodri Chauhan MD Work Phone: [facility] Comment on above: Refill Request Start: 02-02-2025 End: 02-10-2025 Refill Rodri Chauhan MD Work Phone: [facility] Comment on above: Refill Request Start: 01-31-2025 ambulatory Rodri Chauhan Facilit y:[facility] Start: 01-30-2025 End: 01-30-[address] Darrick Guzman MD -[facility] Start: 01-30-2025 End: 01-30-[address] Rodri Chauhan MD Work Phone: [facility] Work Phone: Start: 01-29-2025 End: 01-29-2025 Telephone encounter Johnson Jag ESTRADA Work Phone: [facility] Comment on above: Recheck Start: 01-27-2025 End: 01-27-2025 Refill Rodri Chauhna MD Work Phone: [facility] Comment on above: Refill Request Start: 01-26-2025 End: 02-14-[address] Sebas Lord DPM -Nutritional Services Work Phone: Start: 01-26-[address] Stephan Lord DPM -Nutritional Services Work Phone: Start: 01-26-2025 End: 02-14-2025 Refill Rodri Chauhan MD Work Phone: [facility] Comment on above: Refill Request Start: 01-22-2025 End: 01-29-2025 ambulatory Rodri Chauhan MD Work Phone: [facility] Comment on above: Mri Start: 01-22-2025 End: 03-24-2025 Follow-up encounter Johnson Rm APRN.SENIOR SHAREPOINT ARCHITECT Work Phone: [facility] Start: 01-21-2025 End: 03-23-2025 Follow-up encounter Zunilda Jaramillo APRN.SENIOR TRAINER Work Phone: [facility] Start: 01-20-2025 End: 01-20-2025 Patient encounter procedure Zunilda Jaramillo APRN.SENIOR TRAINER Work Phone: [facility] Comment on above: MARIA TERESA on CPAP (Primary Dx); Rib pain; Chronic midline low back pain with bilateral sciatica; Chronic radicular low back pain; General weakness; Gait instability; Intermittent asthma without complication, unspecified asthma severity (HCC); Hyperlipidemia with target LDL less than 100 Start: 01-20-2025 End: 01-20-2025 ambulatory RODRI CHAUHAN Facility:[facility] Start: 01-12-2025 End: 01-14-2025 Refill Rodri Chauhan MD Work Phone: [facility] Comment on above: Refill Request Start: 01-02-2025 End: 01-02-2025 Telephone encounter Johnson Rm APRN.SENIOR SHAREPOINT ARCHITECT Work Phone: [facility] Comment on above: fax records to [facility] Start: 01-01-2025 End: 01-01-2025 Office outpatient visit 25 minutes Johnson Rm APRN.SENIOR SHAREPOINT ARCHITECT Work Phone: [facility] Comment on above: MARIA TERESA on CPAP (Primary Dx); Chronic midline low back pain with bilateral sciatica; Radiculopathy of lumbar region; Uncontrolled type 2 diabetes mellitus with hyperglycemia (HCC); Obesity, Class III, BMI >= 40; Anemia, unspecified type Start: 01-01-2025 End: 01-01-2025 ambulatory RODRI CHAUHAN Facility:[facility] Start: 12-23-2024 End: 12-23-2024 ambulatory RODRI CHAUHAN Facility:[facility] Start: 12-23-2024 End: 12-23-2024 Office outpatient visit 25 minutes Johnson Rm APRNDanielSENIOR SHAREPOINT ARCHITECT Work Phone: Internal Medicine [place] Comment on above: Chronic midline low back pain, unspecified whether sciatica present (Primary Dx); Radiculopathy of lumbar region; Lumbago Start: 12-17-2024 End: 12-17-2024 Refill Rodri Chauhan MD Work Phone: [facility] [place] Comment on above: Refill Request Start: 12-15-2024 End: 12-15-2024 Emergency department patient visit Dr. Rodri Chauhan MD Work Phone: -Emergency Department Work Phone: Start: 12-12-2024 End: 12-12-2024 ambulatory Jorge Driscoll MD Work Phone: Hematology/Oncology Comment on above: Thrombocytopenia (Pr imary Dx); Fatty liver Start: 12-12-2024 End: 12-12-2024 Patient encounter procedure Jorge Driscoll MD Work Phone: Hematology/Oncology Start: 12-11-2024 End: 12-11-2024 Refill Rodri Chauhan MD Work Phone: Internal [facility] [place] Comment on above: Refill Request Start: 12-10-2024 End: 12-15-[address] Rodri Chauhan MD Work Phone: [facility] Work Phone: Start: 12-10-2024 End: 12-15-[address] Sebas Lord DPM -[facility] Work Phone: Start: 12-10-[address] Stephan Lord DPM [facility] Work Phone: Start: 12-08-2024 End: 12-08-2024 Refill Rodri Chauhan MD Work Phone: [facility] [place] Comment on above: Refill Request Start: 12-03-2024 End: 12-15-[address] Sebas Lord DPM -Nutritional Services Work Phone: Start: 12-03-[address] Stephan MCDONALDM -Nutritional Services Work Phone: Start: 12-03-2024 End: 12-15-[address] Rodri Chauhan MD Work Phone: [facility] Work Phone: Start: 12-02-2024 End: 12-03-2024 Refill Rodri Chauhan MD Work Phone: [place] Comment on above: Refill Request Start: 11-25-2024 End: 11-25-2024 Refill Rodri Chauhan MD Work Phone: [place] Comment on above: Refill Request Start: 11-24-2024 End: 11-24-2024 Refill Zunilda Jaramillo APRN.SENIOR TRAINER Work Phone: Family [facility] Comment on above: Refill Request Start: 11-13-2024 End: 11-13-2024 ambulatory RODRI CHAUHAN Facility:[facility] Start: 11-13-2024 End: 11-13-2024 Patient encounter procedure Erendira Noe APRN.SENIOR TRAINER Work Phone: [facility] Comment on above: Acute midline low ba ck pain with left-sided sciatica (Primary Dx) Start: 11-12-2024 End: 11-14-2024 ambulatory Zunilda Jaramillo SINGER BACK TENDER Facility:[facility] Start: 11-12-2024 End: 11-14-[address] Sebas Lord DPLuis Enrique -[facility] Work Phone: Start: 11-11-2024 End: 11-13-2024 Telephone encounter Rodri Chauhan MD Work Phone: [facility] Comment on above: referral problem Start: 11-01-2024 End: 01-01-2025 Follow-up encounter Rodri Chauhan MD Work Phone: [facility] [place] Start: 10-27-2024 End: 10-28-2024 Refill Rodri Chauhan MD Work Phone: [facility] [place] Comment on above: Refill Request Start: 10-22-2024 End: 10-29-2024 Telephone encounter Rodri Chauhan MD Work Phone: [facility] [place] Comment on above: Appointment Start: 10-21-2024 End: 10-22-2024 Telephone encounter Jorge Driscoll MD Work Phone: Hematology/Oncology Comment on above: New Patient Start: 10-20-2024 End: 10-20-2024 Patient encounter procedure Preeti Kaba APRN.SENIOR TRAINER Work Phone: [facility] [place] Comment on above: Type 2 diabetes rex itus without complication, without long- term current use of insulin (HCC) (Primary Dx); Thrombocytopenia (HCC); MARIA TERESA on CPAP; Numbness and tingling in both hands; Anemia, unspecified type; Bilateral leg edema; Migraine without aura and without status migrainosus, not intractable; Fatty liver Start: 10-20-2024 End: 10-20-2024 ambulatory RODRI CHAUHAN Facility:[facility] Start: 10-20-2024 End: 10-20-2024 Telephone encounter Preeti Kaba APRN.SENIOR TRAINER Work Phone: [facility] [place] Start: 10-18-2024 End: 11-03-2024 ambulatory Rodri Chauhan MD Work Phone: [facility] [place] Comment on above: Dr stern Start: 10-17-2024 End: 10-17-2024 ambulatory RODRI CHAUHAN Facility:[facility] Start: 10-17-2024 End: 10-17-2024 Office outpatient visit 25 minutes Johnson Rm APRN.SENIOR SHAREPOINT ARCHITECT Work Phone: [facility] [place] Comment on above: Tic like phenomenon (Primary Dx); Lumbago; Uncontrolled type 2 diabetes mellitus with hyperglycemia (HCC); Intermittent asthma without complication, unspecified asthma severity; Obesity, Class III, BMI >= 40; Non-seasonal allergic rhinitis, unspecified trigger Start: 10-17-2024 End: 10-17-2024 ambulatory RODRI CHAUHAN Facility:[facility] Start: 10-17-2024 End: 10-17-[address] Sebas Lord DPM -[facility] Work Phone: Start: 10-14-2024 End: 10-14-2024 Refill Rodri Chauhan MD Work Phone: [facility] [place] Comment on above: Refill Request Start: 09-25-2024 End: 09-25-2024 Refill Rodri Chauhan MD Work Phone: [facility] [place] Comment on above: Refill Request (Tram adol and Cyclobenzaprine) Start: 09-23-2024 End: 10-17-[address] Sebas Lord DPM -Nutritional Services Work Phone: Start: 09-23-2024 End: 10-17-2024 ambulatory Sebas Lord Facility:[facility] Start: 09-18-2024 End: 09-18-[address] Miles Littlejohn MD -[facility] Work Phone: Start: 09-18-2024 End: 09-18-2024 ambulatory Rodri Chauhan MD Work Phone: [facility] [place] Comment on above: Medication Problem Start: 09-16-2024 End: 09-16-[address] Sebas Lord DPM -[facility] Work Phone: Start: 09-16-2024 End: 09-22-2024 Refraúl Chauhan MD Work Phone: [facility] [place] Comment on above: Refill Request Start: 09-08-2024 End: 09-11-2024 Refraúl Chauhan MD Work Phone: [facility] [place] Comment on above: Refill Request; Medi cation Problem (Needs refills today) Start: 08-19-2024 End: 08-21-2024 Refill Rodri Chauhan MD Work Phone: Internal [facility] Comment on above: Refill Request Start: 08-13-2024 End: 08-16-2024 ambulatory Zunilda Jaramillo NP Facility:[facility] Start: 08-12-2024 End: 08-16-2024 ambulatory Sebaskorin Lord Facility:[facility] Start: 08-06-2024 End: 08-11-2024 Refill Rodri Chauhan MD Work Phone: Internal [facility] Comment on above: Refill Request Refill Request ([facility]) Start: 08-04-2024 End: 08-04-2024 Telephone encounter Felecia Glaser MD Work Phone: [facility] Comment on above: Appointment Start: 07-31-2024 End: 07-31-2024 Telephone encounter Felecia Glaser MD Work Phone: [facility] Comment on above: Appointment Start: 07-24-2024 End: 07-25-2024 Refill Rodri Chauhan MD Work Phone: Internal [facility] Comment on above: Opened In Error Refill Request; Medi cation Request Refill Request Start: 07-16-2024 End: 07-21-2024 ambulatory Rodri Chauhan MD Work Phone: Internal Medicine [facility] Start: 07-01-2024 End: 07-01-2024 Office outpatient visit 25 minutes Rodri Chauhan MD Work Phone: [facility] [place] Comment on above: Uncontrolled type 2 diabetes mellitus with hyperglycemia (HCC) (Primary Dx); Iron deficiency anemia, unspecified iron deficiency anemia type; Lumbago; Chronic radicular low back pain; Class 3 severe obesity due to excess calories with serious comorbidity and body mass index (BMI) of 60.0 to 69.9 in adult (HCC); Mild intermittent asthma with acute exacerbation; Chronic skin ulcer, limited to breakdown of skin (HCC) Start: 06-24-2024 End: 06-24-2024 Refill Rodri Chauhan MD Work Phone: [facility] [place] Comment on above: Refill Request Start: 06-10-2024 End: 06-10-2024 Refill Rodri Chauhan MD Work Phone: [facility] [place] Comment on above: Refill Request Start: 06-02-2024 End: 06-02-2024 Patient encounter procedure Nanci Collado MRI CT TECH.SENIOR TRAINER Work Phone: [facility] Comment on above: Respiratory infectio n (Primary Dx) Start: 05-30-2024 End: 05-31-2024 Refill Rodri Chauhan MD Work Phone: Internal [facility] [place] Comment on above: Refill Request Start: 05-21-2024 End: 05-21-2024 Refill Rodri Chauhan MD Work Phone: [facility] [place] Comment on above: Refill Request Start: 05-20-2024 End: 05-20-2024 ambulatory Nurse Intm/Famp Triage [facility] Work Phone: Nurse Phone Triage Comment on above: Cough Start: 05-13-2024 End: 05-13-2024 Subsequent hospital visit by physician Xr [facility] [place] Work Phone: Radiology Comment on above: Persistent cough for 3 weeks or longer [R05.3] Start: 05-13-2024 End: 05-13-2024 Patient encounter procedure Michela James APRN.SENIOR TRAINER Work Phone: [facility] Comment on above: Persistent cough for 3 weeks or longer (Primary Dx); Wheezing Start: 04-25-2024 Telephone encounter Rodri cuellar MD Work Phone: Internal [facility] [place] Comment on above: Refill Request Insurance Authorizat ion Start: 04-24-2024 End: 04-24-2024 Office outpatient visit 40 minutes Rodri Chauhan MD Work Phone: Internal [facility] [place] Comment on above: Uncontrolled type 2 diabetes mellitus with hyperglycemia (HCC) (Primary Dx); Class 3 severe obesity due to excess calories with serious comorbidity and body mass index (BMI) of 60.0 to 69.9 in adult (HCC); Cellulitis of right lower extremity; MARIA TERESA on CPAP; Migraine without aura and without status migrainosus, not intractable; Bilateral leg edema; Moderate depressed bipolar I disorder (HCC); Tapeworm; Lumbago; Rib pain; Screening for depression; Encounter for screening examination for other mental health and behavioral disorders Start: 04-22-2024 Refill Rodri koch MD Work Phone: [facility] [place] Comment on above: Refill Request Start: 04-21-2024 Telephone encounter Rodri cuellar MD Work Phone: Internal [facility] [place] Comment on above: fax results Start: 04-11-2024 End: 05-05-2024 Refill Rodri Chauhan MD Work Phone: Family [facility] [place] Comment on above: Refill Request Start: 04-08-2024 Refill Rodri koch MD Work Phone: [facility] [place] Comment on above: Refill Request medication question (pramipexole (MIRAPEX) 1.5 mg tablet); Medication Request (Not on current list for hip//back pain) Start: 03-19-2024 ambulatory Rodri koch MD Work Phone: Internal [facility] [place] Comment on above: Blood Pressure Start: 03-15-2024 Telephone encounter Rodri cuellar MD Work Phone: [facility] [place] Comment on above: Patient Request; Pat ient Update Start: 03-10-2024 Refill Rodri koch MD Work Phone: [facility] [place] Comment on above: Refill Request Start: 03-04-2024 Telephone encounter Rodri cuellar MD Work Phone: [facility] [place] Comment on above: Cough; medication re quest Start: 02-19-2024 Orders Only Krzysztof Chappell Work Phone: Orthopaedics Comment on above: Left knee pain, unsp ecified chronicity (Primary Dx) Start: 02-13-2024 Refill Rodri koch MD Work Phone: Internal [facility] [place] Comment on above: Refill Request Start: 02-01-2024 Refill Rodri koch MD Work Phone: Internal [facility] Comment on above: Refill Request; Open ed In Error Start: 01-25-2024 Refill Rodri koch MD Work Phone: Internal [facility] Comment on above: Refill Request Start: 01-09-2024 End: 01-15-2024 Discharged Recurring [facility] Work Phone: Start: 01-09-2024 End: 01-15-2024 Refill Rodri Chauhan MD Work Phone: Internal [facility] Comment on above: Refill Request Start: 12-28-2023 Refill Rodri koch MD Work Phone: [facility] Comment on above: Refill Request Start: 12-12-2023 End: 12-16-2023 ambulatory [facility] Work Phone: Start: 12-12-2023 End: 12-16-2023 Discharged Recurring [facility] Work Phone: Start: 12-07-2023 End: 12-07-2023 Patient encounter procedure Zunilda Jaramillo APRN.SENIOR TRAINER Work Phone: Internal [facility] Comment on above: Controlled type 2 di abetes mellitus without complication, without long-term current use of insulin (HCC) (Primary Dx); Wound of right lower extremity, subsequent encounter; Chronic dental pain; Tobacco use disorder; Morbid obesity (HCC); Iron deficiency anemia, unspecified iron deficiency anemia type; Mouth pain; Intermittent asthma without complication, unspecified asthma severity; Skin disorder; Chronic radicular low back pain Start: 12-07-2023 Telephone encounter Rodri cuellar MD Work Phone: [facility] [place] Comment on above: Orders Start: 12-03-2023 Refill Rodri koch MD Work Phone: [facility] [place] Comment on above: Refill Request Start: 11-23-2023 Telephone encounter Evaristo SHAHID Work Phone: [facility] Comment on above: Results Start: 11-22-2023 Telephone encounter Erendira Noe MRI CT TECH.SENIOR TRAINER Work Phone: [facility] Comment on above: Results Rx sent [facility] Start: 11-21-2023 Telephone encounter Zunilda hancock MRI CT TECH.SENIOR TRAINER Work Phone: Internal [facility] [place] Comment on above: Refill Request (alexandria ent needs a new glucometer kit sent to the pharmacy also ) Start: 11-19-2023 Refill Rodri koch MD Work Phone: Internal [facility] Comment on above: Refill Request Start: 11-14-2023 End: 11-15-2023 [facility] Work Phone: Start: 11-14-2023 End: 11-15-2023 Discharged Recurring [facility] Work Phone: Start: 10-17-2023 End: 10-17-2023 [facility] Work Phone: Start: 10-17-2023 End: 10-17-2023 Discharged Recurring [facility] Work Phone: Start: 09-28-2023 End: 09-28-2023 Admission to same day surgery [facility] Start: 09-28-2023 End: 09-28-2023 [facility] Work Phone: Start: 09-21-2023 End: 09-21-2023 Subsequent hospital visit by physician Waq[facility] Work Phone: Radiology Comment on above: Pre-op evaluation [Z .818] Start: 09-19-2023 Registered Recurring [facility] Work Phone: Start: 09-05-2023 End: 09-16-2023 ambulatory [facility] Work Phone: Start: 09-05-2023 End: 09-16-2023 Discharged Recurring [facility] Work Phone: Start: 08-21-2023 Refill Zunilda Ella MRI CT TECH.SENIOR TRAINER Work Phone: Internal Medicine [place] Comment on above: Refill Request Start: 08-20-2023 Refill Zunilda Ella MRI CT TECH.SENIOR TRAINER Work Phone: Internal Medicine [place] Comment on above: Refill Request; Refi ll Request Start: 08-15-2023 End: 08-16-2023 [facility] Work Phone: Start: 08-15-2023 End: 08-16-2023 Discharged Recurring [facility] Work Phone: Start: 08-08-2023 Telephone encounter Rodri cuellar MD Work Phone: Internal [facility] [place] Comment on above: prescription problem Start: 08-07-2023 Telephone encounter Rodri cuellar MD Work Phone: Internal Medicine [place] Comment on above: requesting a medicat ion Pharmacy Call Start: 08-06-2023 Refill Rodri koch MD Work Phone: Internal Medicine [place] Comment on above: Refill Request Start: 07-31-2023 End: 07-31-2023 ambulatory Zunilda Ella MRI CT TECH.SENIOR TRAINER Work Phone: Internal Medicine [place] Comment on above: Chronic radicular lo w back pain (Primary Dx); Hip pain, left; Chronic cough; Intermittent asthma without complication, unspecified asthma severity Refill Request Start: 07-31-2023 End: 07-31-2023 Telemedicine consultation with patient Zunilda Grayr MRI CT TECH.SENIOR TRAINER Work Phone: [facility] Start: 07-30-2023 Telephone encounter Rodri cuellar MD Work Phone: Internal [facility] [place] Comment on above: Medication request; not on med list Start: 07-27-2023 Refill Rodri koch MD Work Phone: Internal [facility] [place] Comment on above: Refill Request Start: 07-23-2023 End: 07-23-2023 Subsequent hospital visit by physician Xr [facility] [place] Work Phone: Radiology Comment on above: Right wrist pain [M2 5.531] Start: 07-23-2023 End: 07-23-2023 Patient encounter procedure [facility] Work Phone: [facility] Comment on above: Dental infection (Pr imary Dx); Right wrist pain; Penicillin allergy Start: 07-23-2023 ambulatory Connie Strong APRN. SENIOR TRAINER Work Phone: [facility] Comment on above: xray Start: 07-23-2023 E-mail encounter fro m caregiver Connie Strong APRN.SENIOR TRAINER Work Phone: [facility] Start: 07-16-2023 Refill Rodri koch MD Work Phone: Internal [facility] Comment on above: Opened In Error Start: 07-13-2023 End: 07-13-2023 Patient encounter procedure Zunilda Jaramillo APRN.SENIOR TRAINER Work Phone: Internal [facility] Comment on above: Class 3 severe obesi ty due to excess calories with serious comorbidity and body mass index (BMI) of 60.0 to 69.9 in adult (HCC) (Primary Dx) Start: 07-11-2023 End: 07-17-2023 ambulatory [facility] Work Phone: Start: 07-11-2023 End: 07-17-2023 Discharged Recurring [facility] Work Phone: Start: 07-02-2023 Refill Rodri koch MD Work Phone: [facility] [place] Comment on above: Refill Request Start: 06-29-2023 Refill Rodri koch MD Work Phone: Internal [facility] [place] Comment on above: Refill Request Start: 06-01-2023 Refill Rodri koch MD Work Phone: [facility] [place] Comment on above: Refill Request Start: 05-08-2023 Telephone encounter Rodri cuellar MD Work Phone: [facility] [place] Comment on above: Insurance Authorizat ion Start: 05-04-2023 End: 05-04-2023 Patient encounter procedure Zunilda Jaramillo APRN.SENIOR TRAINER Work Phone: [facility] [place] Comment on above: Cellulitis of abdomi nal wall (Primary Dx); Cellulitis of right lower extremity; Bilateral leg edema; Moderate depressed bipolar I disorder (HCC) Start: 05-01-2023 Telephone encounter Rodri cuellar MD Work Phone: [facility] [place] Comment on above: AEP Forms Start: 04-27-2023 End: 04-27-2023 Office outpatient visit 40 minutes Rodri Chauhan MD Work Phone: Internal [facility] [place] Comment on above: Iron deficiency anem ia, unspecified iron deficiency anemia type (Primary Dx); Cellulitis of right lower extremity; Cellulitis of abdominal wall; Bilateral leg edema; Vitamin D deficiency; MARIA TERESA on CPAP; Class 3 severe obesity due to excess calories with serious comorbidity and body mass index (BMI) of 60.0 to 69.9 in adult ([facility]); Encounter for long-term current use of medication Start: 04-23-2023 Refill Rodri koch MD Work Phone: Internal [facility] [place] Comment on above: Refill Request Start: 04-15-2023 Refill Zunilda Jaramillo APRN.SENIOR TRAINER Work Phone: Internal Medicine [place] Comment on above: Refill Request Start: 03-15-2023 Refill Zunilda Jaramillo APRN.SENIOR TRAINER Work Phone: Internal [facility] [place] Comment on above: Refill Request Start: 03-06-2023 End: 03-06-2023 Office outpatient visit 25 minutes Johnson Rm APRN.CNS Work Phone: Internal Medicine [place] Comment on above: Rash and nonspecific skin eruption (Primary Dx); Encounter for immunization; Screening for diabetic retinopathy; Controlled type 2 diabetes mellitus without complication, without long-term current use of insulin (HCC); Hyperlipidemia with target LDL less than 100; Morbid obesity (HCC); Restless leg syndrome; Intermittent asthma, unspecified asthma severity, unspecified whether complicated; Urinary tract infection with hematuria, site unspecified; Iron deficiency anemia secondary to inadequate dietary iron intake; Vitamin D deficiency; Bilateral leg edema; Iron deficiency; Panniculitis Start: 02-22-2023 End: 02-22-2023 Subsequent hospital visit by physician [facility] [place] [facility] Work Phone: Radiology Comment on above: Cellulitis of right lower extremity [L03.115] Start: 02-20-2023 Orders Only Raymond Jadiel garsia Work Phone: Podiatry Comment on above: Bilateral foot pain (Primary Dx) Start: 02-19-2023 End: 02-19-2023 Patient encounter procedure Zunilda Jaramillo APRN.CNP Work Phone: [facility] [place] Comment on above: Cellulitis of right lower extremity (Primary Dx); Bilateral leg edema; Chronic radicular low back pain; Chronic pain of both knees; Controlled type 2 diabetes mellitus without complication, without long-term current use of insulin (HCC); Hyperlipidemia with target LDL less than 100; Iron deficiency anemia secondary to inadequate dietary iron intake; Encounter for therapeutic drug monitoring Start: 02-13-2023 [facility]ulatory [facility] Start: 02-06-2023 Telephone encounter Rodri cuellar MD Work Phone: [facility] [place] Comment on above: Orders Start: 01-19-2023 Refill Rodri koch MD Work Phone: Internal Medicine [place] Comment on above: Refill Request Start: 01-01-2023 Refill Rodri koch MD Work Phone: Internal [facility] [place] Comment on above: Refill Request Start: 12-09-2022 End: 12-09-2022 Emergency department patient visit [facility] Start: 11-23-2022 Refill Rodri koch MD Work Phone: Internal [facility] [place] Comment on above: Refill Request Start: 11-01-2022 Refill Zunilda Jaramillo APRN.CNP Work Phone: Internal [facility] [place] Comment on above: Refill Request Start: 10-05-2022 Refill Rodri koch MD Work Phone: [facility] [place] Comment on above: Refill Request Start: 09-29-2022 Refill Rodri koch MD Work Phone: Internal [facility] [place] Comment on above: Refill Request Start: 09-26-2022 Refill Rodri koch MD Work Phone: [facility] [place] Comment on above: Refill Request Start: 09-14-2022 Refill Rodri koch MD Work Phone: [facility] [place] Comment on above: Refill Request Start: 09-12-2022 Refill Rodri koch MD Work Phone: [facility] [place] Comment on above: Refill Request Start: 09-07-2022 End: 09-08-2022 Emergency department patient visit [facility]Emer[facility] Start: 09-06-2022 ambulatory Rodri koch MD Work Phone: Internal Medicine [facility] [place] Start: 09-06-2022 Telephone encounter Rodri cuellar MD Work Phone: [facility] [place] Comment on above: Opened In Error Start: 09-05-2022 Telephone encounter Rodri cuellar MD Work Phone: Internal [facility] [place] Comment on above: Rx issue Start: 09-02-2022 Refill Johnson Rm APRN.CNS Work Phone: [facility] [place] Comment on above: Refill Request Start: 08-19-2022 Refill Rodri koch MD Work Phone: [facility] [place] Comment on above: Refill Request; Refi ll Request Start: 07-25-2022 End: 07-25-2022 [facility] Start: 07-11-2022 Refill Rodri koch MD Work Phone: Internal Medicine [place] Comment on above: Refill Request Start: 07-06-2022 Refill Rodri koch MD Work Phone: Internal [facility] [place] Comment on above: Refill Request Start: 06-20-2022 Refill Rodri koch MD Work Phone: [facility] Comment on above: Refill Request Start: 06-01-2022 End: 06-01-2022 [facility] Start: 05-29-2022 Refill Rodri koch MD Work Phone: Internal Medicine [place] Comment on above: Refill Request Start: 05-27-2022 Refill Rodri koch MD Work Phone: [facility] [place] Comment on above: Refill Request Start: 04-25-2022 Refill Rodri koch MD Work Phone: Internal [facility] [place] Comment on above: Refill Request Start: 04-24-2022 Refill Rodri koch MD Work Phone: Internal [facility] [place] Comment on above: Refill Request Start: 04-15-2022 Refill Rodri koch MD Work Phone: Family [facility] [place] Comment on above: Refill Request Start: 03-27-2022 Telephone encounter Rodri cuellar MD Work Phone: [facility] [place] Comment on above: Lab Orders Refill Request Start: 03-14-2022 Refill Rodri koch MD Work Phone: [facility] [place] Comment on above: Refill Request Start: 03-02-2022 Refill Rodri koch MD Work Phone: [facility] Comment on above: Refill Request Start: 02-28-2022 Refill Rodri koch MD Work Phone: [facility] [place] Comment on above: Refill Request Start: 02-02-2022 Refill Rodri koch MD Work Phone: [facility] [place] Comment on above: Refill Request Start: 01-31-2022 Telephone encounter Rodri cuellar MD Work Phone: [facility] [place] Comment on above: Insurance Authorizat ion Start: 01-30-2022 Refill Rodri koch MD Work Phone: [facility] [place] Comment on above: Refill Request Start: 01-28-2022 Refill Rodri koch MD Work Phone: [facility] [place] Comment on above: Refill Request Letter Start: 11-21-2021 Refill Rodri koch MD Work Phone: [facility] [place] Comment on above: Refill Request Start: 04-06-2017 Ambulatory UNKNOWN PROVIDER [facility] Procedures Date Procedure Procedure Detail Performing Clinician Start: 07-04-2025 Radiologic exam ches t [address] Rodri Chauhan MD Work Phone: Start: 07-04-[address] Rodri Chauhan MD Work Phone: Start: 07-04-2025 Urnls dip stick/tabl et reagent auto microscopy Dr. Rodri Chauhan MD Work Phone: Start: 07-04-[address] Rodri Chauhan MD Work Phone: Start: 05-12-2025 Adult depression scr eening assessment Rodri Chauhan MD Work Phone: Start: 02-18-[address] Rodri Chauhan MD Work Phone: Start: 02-18-2025 Gram stain microscopy Madeline Chauhan MD Work Phone: Start: 02-18-2025 End: 02-18-2025 Microbial culture, routine Dr. Rodri villarreal MD Work Phone: Start: 01-30-2025 X-ray of lumbosacral spine Dr. Rodri Chauhan MD Work Phone: Start: 12-23-2024 Urnls dip stick/tabl et rgnt auto w/o microscopy Johnson Rm MRI CT TECH.SENIOR SHAREPOINT ARCHITECT Work Phone: Start: 12-15-2024 X-ray of lumbar spin e, two or three views Dr. Rodri Chauhan MD Work Phone: Start: 05-13-2024 Radiologic exam ches t 2 views Michela James MRI CT TECH.SENIOR TRAINER Work Phone: Start: 04-24-2024 Adult depression scr eening assessment Rodri Chauhan MD Work Phone: Start: 01-02-2024 Anaerobic microbial culture Start: 01-02-2024 Investigation of transfusion reaction Start: 01-02-2024 Microbial culture, routine Start: 10-17-2023 Anaerobic microbial culture Start: 10-17-2023 Investigation of transfusion reaction Start: 10-17-2023 Microbial culture, routine Start: 10-17-2023 Mycology culture Start: 09-28-2023 Incision and drainag e of abscess Start: 09-21-2023 Radiologic exam ches t 2 views Zunilda Jaramillo MRI CT TECH.SENIOR TRAINER Work Phone: Start: 07-23-2023 Radex wrist complete minimum 3 views Connie Strong MRI CT TECH.SENIOR TRAINER Work Phone: Start: 02-22-2023 Dup-scan xtr veins unilateral/limited study Zunilda Jaramillo MRI CT TECH.SENIOR TRAINER Work Phone: Start: 09-07-2022 Plain chest X-ray Start: 06-01-2022 Plain chest X-ray Start: 08-15-2021 Adult depression scr eening assessment Rodri Chauhan MD Work Phone: SARS-CoV-2 & FLU Ant igen (Rapid) SARS-CoV-2 & FLU Ant igen (Rapid) Plan of Treatment Date Care Activity Detail Author Start: 07-16-2027 Urine microalbumin profile [facility] Start: 05-12-2026 Annual PCP Team Manager Clinical jass Disease Visit Annual PCP Team Chronic Disease Visit [facility] Start: 05-12-2026 Anxiety Screening Anxiety Screening [facility] Start: 05-12-2026 Depression Screening Depression Scre ening [facility] Start: 05-12-2026 HPV Vaccine (1 - 3-d ose SCDM series) HPV Vaccine (1 - 3-dose SCDM series) [facility] Comment on above: Postponed from 08/31 (Declined at this time) Start: 01-20-2026 Annual PCP Team Manager Clinical jass Disease Visit Annual PCP Team Chronic Disease Visit [facility] Start: 01-20-2026 Hepatitis B surface antibody level LDL Cholesterol [facility] Start: 01-20-2026 HPV TESTING HPV TESTING [facility] Start: 01-20-2026 PAP TESTING PAP TESTING [facility] Start: 01-20-2026 Screening for malign ant neoplasm of cervix [facility] Start: 11-18-2025 End: 11-18-2025 Patient encounter procedure 11/18/2025 3:40 PM EST Office Visit [facility] [place] [address] [place] [address] Rodri Chauhan MD [address] [place] [address] 3 month f/u [facility] [place] Comment on above: 3 month f/u Start: 10-29-2025 Hemoglobin A1c measurement HbA1C [facility] Start: 10-20-2025 Annual PCP Team Manager Clinical jass Disease Visit Annual PCP Team Chronic Disease Visit [facility] Start: 08-17-2025 End: 08-17-2025 Patient encounter procedure 08/17/2025 3:00 PM EST Office Visit [facility] [place] [address] [place] [address] Johnson Rm APRN.SENIOR SHAREPOINT ARCHITECT [address] [place] [address] 3 month f/u [facility] [place] Comment on above: 3 month f/u Start: 08-12-2025 End: 11-11-2025 Hemoglobin A1c in Blood HEMOGLOBIN A1C Lab Routine Diabetes mellitus type 2, controlled, without complications (HCC) Expected: 08/12/2025 (Approximate), Expires: 11/11/2025 [facility] Comment on above: Expected: 08/12/2025 (Approximate), Expires: 11/11/2025 Start: 07-22-2025 Anaerobic Culture Anaerobic Culture [facility] Start: 07-22-2025 Gram stain microscopy Gram Stain [facility] [place] Start: 07-22-2025 Microbial culture, routine Wound Culture [facility] Start: 07-22-2025 Source specific culture [facility] Start: 07-22-2025 Registered Recurring Lymphedem a, not elsewhere [facility] Work Phone: Start: 07-17-2025 End: 07-17-2025 Discharged Recurring Lymphedema, not elsewhere [facility] Work Phone: Start: 07-04-2025 End: 07-04-2025 [facility] Start: 07-01-2025 Annual PCP Team Manager Clinical jass Disease Visit Annual PCP Team Chronic Disease Visit [facility] Start: 07-01-2025 Hepatitis B Vaccine (1 of 3 - 19+ 3-dose series) Hepatitis B Vaccine (1 of 3 - 19+ 3-dose series) [facility] Comment on above: Postponed from 08/31 (Declined at this time) Start: 07-01-2025 Pneumococcal vaccination Pneum ococcal Vaccine (2 of 2 - PCV) [facility] Comment on above: Postponed from 01/27 (Declined at this time) Start: 06-04-2025 End: 06-04-2025 ambulatory 06/04/2025 9:30 AM EDT OT/PT/Speech Visit [facility] [address] [place] [address] Nanci Cook, PT M54.50,G89.29 (ICD-10-CM) - Chronic midline low back pain, unspecified whether sciatica present [facility] Comment on above: M54.50,G89.29 (ICD-1 0-CM) - Chronic midline low back pain, unspecified whether sciatica present Start: 05-18-2025 Influenza vaccination C [facility] Start: 05-15-2025 End: 05-15-2025 ambulatory 05/15/2025 2:00 PM EDT OT/PT/Speech Visit [facility] [address] [place] [address] Nanci Cook, PT M54.50,G89.29 (ICD-10-CM) - Chronic midline low back pain, unspecified whether sciatica present [facility] Comment on above: M54.50,G89.29 (ICD-1 0-CM) - Chronic midline low back pain, unspecified whether sciatica present Start: 05-12-2025 End: 05-12-2025 Patient encounter procedure [facility] [place] Comment on above: 3 month f/u 3 month f/u-needs ur ine tox screen Start: 05-12-2025 End: 08-11-2025 Microalbumin/Creatinine [Mass Ratio] in Urine ALBUMIN/CREATININE RATIO, URINE Lab Routine Diabetes mellitus type 2, controlled, without complications (HCC) Expected: 05/12/2025, Expires: 08/11/2025 [facility] Work Phone: Comment on above: Expected: 05/12/2025 , Expires: 08/11/2025 Start: 05-05-2025 End: 05-05-2025 ambulatory 05/05/2025 1:30 PM EDT OT/PT/Speech Visit [facility] [address] [place] [address] Nanci Cook, PT M54.50,G89.29 (ICD-10-CM) - Chronic midline low back pain, unspecified whether sciatica present [facility] Comment on above: M54.50,G89.29 (ICD-1 0-CM) - Chronic midline low back pain, unspecified whether sciatica present Start: 04-29-2025 End: 04-29-2025 ambulatory 04/29/2025 6:00 PM EDT OT/PT/Speech Visit [facility] [address] [place] [address] Nanci Cook, PT M54.50,G89.29 (ICD-10-CM) - Chronic midline low back pain, unspecified whether sciatica present [facility] Comment on above: M54.50,G89.29 (ICD-1 0-CM) - Chronic midline low back pain, unspecified whether sciatica present Start: 04-28-2025 End: 04-28-2025 ambulatory 04/28/2025 3:15 PM EDT Results Only [facility] [address] [facility] [place] [address] [facility] Start: 04-28-2025 End: 04-28-2025 ambulatory 04/28/2025 1:30 PM EDT OT/PT/Speech Visit [facility] [address] [place] [address] Nanci Cook, PT M54.50,G89.29 (ICD-10-CM) - Chronic midline low back pain, unspecified whether sciatica present [facility] Comment on above: M54.50,G89.29 (ICD-1 0-CM) - Chronic midline low back pain, unspecified whether sciatica present Start: 04-27-2025 End: 04-27-2025 ambulatory 04/27/2025 4:30 PM EDT Results Only [facility] [address] [place] [address] [facility] Start: 04-24-2025 Annual PCP Team Manager Clinical jass Disease Visit Annual PCP Team Chronic Disease Visit [facility] Start: 04-24-2025 Anxiety Screening Anxiety Screening [facility] Start: 04-24-2025 Depression Screening Depression Scre ening [facility] Start: 04-22-2025 Hemoglobin A1c measurement HbA1C [facility] Start: 04-22-2025 Hepatitis B screening Urine Al bumin:Creatinine Ratio [facility] Start: 04-10-2025 End: 04-10-2025 Patient encounter procedure 04/10/2025 10:30 AM EDT Office Visit OB/Gynecology [address] [place] [address] Iva Wakefield, MARIJA.SENIOR TRAINER [address] [place] [address] Annual OB/Gynecology Comment on above: Annual Start: 04-08-2025 End: 04-08-2025 ambulatory 04/08/2025 3:00 PM EDT OT/PT/Speech Visit [facility] [address] [place] [address] O'Nanci Ly, PT M54.50,G89.29 (ICD-10-CM) - Chronic midline low back pain, unspecified whether sciatica present [facility] Comment on above: M54.50,G89.29 (ICD-1 0-CM) - Chronic midline low back pain, unspecified whether sciatica present Start: 04-08-2025 End: 07-08-2025 TOXICOLOGY SCREEN, ROUTINE URINE TOXICOLOGY SCREEN, ROUTINE URINE Lab Routine Encounter for long-term current use of medication Expected: 04/08/2025, Expires: 07/08/2025 [facility] Work Phone: Comment on above: Expected: 04/08/2025 , Expires: 07/08/2025 Start: 04-03-2025 End: 04-03-2025 ambulatory 04/03/2025 11:15 AM EDT OT/PT/Speech Visit [facility] [address] [place] [address] O'Nanci Ly, PT Chronic midline low back pain, unspecified whether sciatica present [M54.50, G89.29] [facility] Comment on above: Chronic midline low back pain, unspecified whether sciatica present [M54.50, G89.29] Start: 04-01-2025 End: 04-01-2025 ambulatory 04/01/2025 5:15 PM EDT OT/PT/Speech Visit [facility] [address] [place] [address] O'Nanci Ly, PT M54.50,G89.29 (ICD-10-CM) - Chronic midline low back pain, unspecified whether sciatica present [facility] Comment on above: M54.50,G89.29 (ICD-1 0-CM) - Chronic midline low back pain, unspecified whether sciatica present Start: 03-27-2025 End: 03-27-2025 ambulatory 03/27/2025 12:30 PM EDT OT/PT/Speech Visit [facility] [address] [place] [address] Nanci Cook, PT Chronic midline low back pain, unspecified whether sciatica present [M54.50, G89.29] [facility] Comment on above: Chronic midline low back pain, unspecified whether sciatica present [M54.50, G89.29] Start: 03-25-2025 End: 03-25-2025 ambulatory 03/25/2025 5:15 PM EDT OT/PT/Speech Visit [facility] [address] [place] [address] Radha Mckeonh, DESIGN AGENT [address] [place] [address] M54.50,G89.29 (ICD-10-CM) - Chronic midline low back pain, unspecified whether sciatica present [facility] Comment on above: M54.50,G89.29 (ICD-1 0-CM) - Chronic midline low back pain, unspecified whether sciatica present Start: 03-18-2025 End: 03-18-2025 ambulatory 03/18/2025 5:15 PM EDT OT/PT/Speech Visit [facility] [address] [place] [address] Radha Mckeonh, DESIGN AGENT [address] [place] [address] M54.50,G89.29 (ICD-10-CM) - Chronic midline low back pain, unspecified whether sciatica present [facility] Comment on above: M54.50,G89.29 (ICD-1 0-CM) - Chronic midline low back pain, unspecified whether sciatica present Start: 03-16-2025 Influenza vaccination Influenza Vacc ine (#1) [facility] Comment on above: Postponed from 05/18 (Declined at this time) Start: 03-11-2025 End: 03-11-2025 ambulatory 03/11/2025 5:15 PM EDT OT/PT/Speech Visit [facility] [address] [place] [address] O'Nanci Ly, PT M54.50,G89.29 (ICD-10-CM) - Chronic midline low back pain, unspecified whether sciatica present [facility] Comment on above: M54.50,G89.29 (ICD-1 0-CM) - Chronic midline low back pain, unspecified whether sciatica present Start: 02-24-2025 End: 02-24-2025 ambulatory 02/24/2025 3:45 PM EDT OT/PT/Speech Visit [facility] [address] [place] [address] O'Nanci Ly, PT To walk better [facility] Comment on above: To walk better Start: 02-10-2025 End: 02-10-2025 ambulatory 02/10/2025 12:00 PM EDT OT/PT/Speech Visit [facility] [address] [place] [address] O'Nanci Ly, PT To walk better [facility] Comment on above: To walk better Start: 01-30-2025 X-ray of lumbosacral spine L/S Spine Bending Flex/Ext [facility] Start: 01-30-2025 XR Spine Lumbar and Sacrum Views [facility] Start: 01-30-2025 Patient referral [facility] Work Phone: Start: 01-20-2025 End: 04-21-2025 LIPID PANEL, NONFASTING [facility] Work Phone: Comment on above: Expected: 01/20/2025 , Expires: 04/21/2025 Start: 01-16-2025 End: 01-16-2025 Patient encounter procedure [facility] [place] Comment on above: 3 month follow up 3 month follow up, madeline gonzalez need for C-pap Start: 01-14-2025 Hemoglobin A1c measurement HbA1C [facility] Start: 01-14-2025 End: 01-14-2025 ambulatory 01/14/2025 11:30 AM EDT Results Only [facility] [address] [facility] [place] [address] [facility] Start: 01-05-2025 End: 01-05-2025 ambulatory 01/05/2025 2:00 PM EDT OT/PT/Speech Visit [facility] [address] [place] [address] ONanci Martin, PT Chronic midline low back pain, unspecified whether sciatica present [M54.50, G89.29]; Radiculopathy of lumbar region [M54.16] [facility] Comment on above: Chronic midline low back pain, unspecified whether sciatica present [M54.50, G89.29]; Radiculopathy of lumbar region [M54.16] Start: 01-01-2025 End: 01-01-2025 Patient encounter procedure 01/01/2025 3:00 PM EDT Office Visit [facility] [place] [address] [facility] [place] [address] Johnson Rm APRN.SENIOR SHAREPOINT ARCHITECT [address] [facility] [place] [address] to discuss cpap [facility] [place] Comment on above: to discuss cpap Start: 01-01-2025 End: 04-02-2025 Hemoglobin A1c in Blood HEMOGLOBIN A1C Lab Routine Uncontrolled type 2 diabetes mellitus with hyperglycemia (HCC) Expected: 01/01/2025, Expires: 04/02/2025 [facility] Work Phone: Comment on above: Expected: 01/01/2025 , Expires: 04/02/2025 Start: 12-30-2024 Diabetic foot examination Diabetic Foot Exam [facility] Comment on above: Postponed from 03/16 (Declined at this time) Start: 12-29-2024 End: 12-29-2024 Patient encounter procedure 12/29/2024 8:00 AM EDT Office [address] [facility] [address] [place] [address] Felecia Glaser MD [address] [place] [address] New Patient - Non SX [facility] Comment on above: New Patient - Non SX Start: 12-15-2024 [facility] Start: 12-12-2024 End: 03-13-2025 CITRATED PLATELET COUNT [facility] Work Phone: Comment on above: Expected: 12/12/2024 , Expires: 03/13/2025 Start: 12-12-2024 End: 12-12-2025 Cobalamin (Vitamin B12) [Mass/volume] in Serum or Plasma [facility] Comment on above: Expected: 12/12/2024 , Expires: 12/12/2025 Start: 12-12-2024 End: 12-12-2025 Ferritin [Mass/volume] in Serum or Plasma [facility] Comment on above: Expected: 12/12/2024 , Expires: 12/12/2025 Start: 12-12-2024 End: 12-12-2025 Iron and Iron binding capacity panel - Serum or Plasma [facility] Comment on above: Expected: 12/12/2024 (Approximate), Expires: 12/12/2025 Start: 12-12-2024 End: 12-12-2024 ambulatory 12/12/2024 10:30 AM EDT Visit (SP) Office Hematology/Oncology [address] [place] [address] Jorge Driscoll MD [address] [place], [place] [id number] SINGER BACK TENDER/THROMBOCYTOPENIA/REF BY PREETI KABA*THIS DATE AND TIME PER PT. Hematology/Oncology Comment on above: SINGER BACK TENDER/THROMBOCYTOPENIA/ REF BY PREETI KABA*THIS DATE AND TIME PER PT. Start: 12-06-2024 Annual PCP Team Manager Clinical jass Disease Visit Annual PCP Team Chronic Disease Visit [facility] Start: 12-02-2024 End: 12-02-2024 ambulatory 12/02/2024 3:00 PM EDT Results Only [place] Mcfarlane [facility] [address] [place] [address] [place] Moranwn [facility] Start: 11-24-2024 End: 11-24-2024 ambulatory 11/24/2024 10:40 AM EDT Visit (SP) Office Hematology/Oncology [address] [place] [address] [place] [address] [facility] [place] [address] SINGER BACK TENDER/THROMBOCYTOPENIA/REF BY PREETI KABA*THIS DATE AND TIME PER PT. Hematology/Oncology Comment on above: SINGER BACK TENDER/THROMBOCYTOPENIA/ REF BY PREETI KABA*THIS DATE AND TIME PER PT. Start: 11-21-2024 End: 11-21-2024 ambulatory 11/21/2024 11:30 AM EST Results Only [place] [facility] [address] [place] [address] [place] [facility] Start: 11-14-2024 End: 11-14-2024 ambulatory 11/14/2024 1:00 PM EST Visit (SP) Office Hematology/Oncology [address] [place] [address] [place] [address] [place] [address] SINGER BACK TENDER/THROMBOCYTOPENIA/REF BY PREETI KABA*THIS DATE AND TIME PER PT. Hematology/Oncology Comment on above: SINGER BACK TENDER/THROMBOCYTOPENIA/ REF BY PREETI KABA*THIS DATE AND TIME PER PT. Start: 11-01-2024 Glaucoma screening Dilated Retinal E xam [facility] Start: 10-17-2024 End: 10-17-2024 Patient encounter procedure 10/17/2024 2:40 PM EST Office Visit [facility] [place] [address] [place] [address] Johnson Rm APRN.SENIOR SHAREPOINT ARCHITECT [address] [place] [address] 3 month follow up [facility] [place] Comment on above: 3 month follow up Start: 10-17-2024 End: 01-16-2025 Lipid 1996 panel - Serum or Plasma LIPID PANEL BASIC Lab Routine Expected: 10/17/2024, Expires: 01/16/2025 [facility] Work Phone: Comment on above: Expected: 10/17/2024 , Expires: 01/16/2025 Start: 10-15-2024 End: 10-15-2024 ambulatory [facility] Start: 10-10-2024 End: 10-10-2024 Patient encounter procedure 10/10/2024 2:40 PM EST Office Visit [facility] [place] [address] [place] [address] Rodri Chauhan MD [address] [place] [address] 3 month follow up [facility] [place] Comment on above: 3 month follow up Start: 09-18-2024 Annual PCP Team Manager Clinical jass Disease Visit Annual PCP Team Chronic Disease Visit [facility] Start: 07-31-2024 Annual PCP Team Manager Clinical jass Disease Visit Annual PCP Team Chronic Disease Visit [facility] Start: 07-23-2024 Hemoglobin A1c measurement HbA1C [facility] Start: 07-13-2024 Annual PCP Team Manager Clinical jass Disease Visit Annual PCP Team Chronic Disease Visit [facility] Start: 07-03-2024 Hemoglobin A1c measurement HbA1C [facility] Start: 07-01-2024 End: 09-30-2024 Lipid 1996 panel - Serum or Plasma LIPID PANEL BASIC Lab Routine Uncontrolled type 2 diabetes mellitus with hyperglycemia (HCC) Expected: 07/01/2024, Expires: 09/30/2024 [facility] Comment on above: Expected: 07/01/2024 , Expires: 09/30/2024 Start: 07-01-2024 End: 07-01-2024 Patient encounter procedure 07/01/2024 1:20 PM EDT Office Visit [facility] [place] [address] [place] [address] Rodri Chauhan MD [address] [place] [address] 6 month follow up [facility] [place] Comment on above: 6 month follow up Start: 06-23-2024 End: 06-23-2024 Patient encounter procedure 06/23/2024 2:40 PM EDT Office Visit [facility] [place] [address] [place] [address] Rodri Chauhan MD [address] [place] [address] 6 month follow up [facility] [place] Comment on above: 6 month follow up Start: 06-01-2024 Annual PCP Team Manager Clinical jass Disease Visit Annual PCP Team Chronic Disease Visit [facility] Start: 05-18-2024 Influenza vaccination C [facility] Start: 05-04-2024 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 JASS DISEASE VISIT ANNUAL PCP TEAM CHRONIC DISEASE VISIT [facility] Start: 04-27-2024 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 JASS DISEASE VISIT ANNUAL PCP TEAM CHRONIC DISEASE VISIT [facility] Start: 04-24-2024 End: 04-24-2024 Patient encounter procedure 04/24/2024 4:40 PM EDT Office Visit [facility] [place] [address] [place] [address] Rodri Chauhan MD [address] [facility] [place] [address] Medication and Lab Follow up [facility] [place] Comment on above: Medication and Lab F [facility] up Start: 04-22-2024 End: 04-22-2024 ambulatory 04/22/2024 2:00 PM EDT Results Only [facility] [address] [place] [address] Labs [facility] Comment on above: Labs Start: 04-14-2024 End: 07-14-2024 CBC panel - Blood by Automated count COMPLETE BLOOD COUNT Lab Routine Restless leg syndrome Iron deficiency anemia, unspecified iron deficiency anemia type Expected: 04/14/2024, Expires: 07/14/2024 [facility] Comment on above: Expected: 04/14/2024 , Expires: 07/14/2024 Start: 04-14-2024 End: 07-14-2024 Comprehensive metabolic 2000 panel - Serum or Plasma COMPREHENSIVE METABOLIC PANEL Lab Routine Uncontrolled type 2 diabetes mellitus with hyperglycemia (HCC) Expected: 04/14/2024, Expires: 07/14/2024 [facility] Work Phone: Comment on above: Expected: 04/14/2024 , Expires: 07/14/2024 Start: 04-14-2024 End: 07-14-2024 Ferritin [Mass/volume] in Serum or Plasma FERRITIN Lab Routine Restless leg syndrome Iron deficiency anemia, unspecified iron deficiency anemia type Expected: 04/14/2024, Expires: 07/14/2024 [facility] Comment on above: Expected: 04/14/2024 , Expires: 07/14/2024 Start: 04-14-2024 End: 07-14-2024 Hemoglobin A1c in Blood HEMOGLOBIN A1C Lab Routine Uncontrolled type 2 diabetes mellitus with hyperglycemia (HCC) Expected: 04/14/2024, Expires: 07/14/2024 [facility] Comment on above: Expected: 04/14/2024 , Expires: 07/14/2024 Start: 04-14-2024 End: 07-14-2024 Iron and Iron binding capacity panel - Serum or Plasma IRON AND TIBC Lab Routine Restless leg syndrome Iron deficiency anemia, unspecified iron deficiency anemia type Expected: 04/14/2024, Expires: 07/14/2024 [facility] Comment on above: Expected: 04/14/2024 , Expires: 07/14/2024 Start: 04-14-2024 End: 07-14-2024 Microalbumin/Creatinine [Mass Ratio] in Urine ALBUMIN/CREATININE RATIO, URINE Lab Routine Uncontrolled type 2 diabetes mellitus with hyperglycemia (HCC) Expected: 04/14/2024, Expires: 07/14/2024 [facility] Comment on above: Expected: 04/14/2024 , Expires: 07/14/2024 Start: 03-24-2024 End: 03-24-2024 Patient encounter procedure Podiatry Comment on above: diabetic foot check elevated BP @ [facility] appointment Start: 03-21-2024 Hemoglobin A1c measurement HbA1C [facility] Start: 03-16-2024 Influenza vaccination Influenza Vacc ine (#1) [facility] Comment on above: Postponed from 05/18 (Declined at this time) Start: 03-06-2024 Hepatitis B screening URINE AL BUMIN:CREATININE RATIO [facility] Start: 03-06-2024 Hepatitis B surface antibody level LDL CHOLESTEROL [facility] Start: 02-29-2024 End: 02-29-2024 Patient encounter procedure 02/29/2024 3:30 PM EDT Office Visit [facility] [address] [place], [place] [id number] Krzysztof Hester V, DO [address] [place], [place] [id number] left knee pain, previous injection in 2018 [facility] Comment on above: left knee pain, prev ious injection in 2018 Start: 02-20-2024 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 JASS DISEASE VISIT ANNUAL PCP TEAM CHRONIC DISEASE VISIT [facility] Start: 12-10-2023 End: 03-10-2024 CBC W Auto Differential panel - Blood CBC + DIFF Lab Routine Iron deficiency anemia, unspecified iron deficiency anemia type Expected: 12/10/2023, Expires: 03/10/2024 [facility] Work Phone: Comment on above: Expected: 12/10/2023 , Expires: 03/10/2024 Start: 12-10-2023 End: 03-10-2024 Comprehensive metabolic 2000 panel - Serum or Plasma COMP METABOLIC PANEL Lab Routine Controlled type 2 diabetes mellitus without complication, without long-term current use of insulin (HCC) Iron deficiency anemia, unspecified iron deficiency anemia type Expected: 12/10/2023, Expires: 03/10/2024 [facility] Work Phone: Comment on above: Expected: 12/10/2023 , Expires: 03/10/2024 Start: 12-10-2023 End: 03-10-2024 Ferritin [Mass/volume] in Serum or Plasma FERRITIN BLD Lab Routine Iron deficiency anemia, unspecified iron deficiency anemia type Expected: 12/10/2023, Expires: 03/10/2024 [facility] Work Phone: Comment on above: Expected: 12/10/2023 , Expires: 03/10/2024 Start: 12-10-2023 End: 03-10-2024 Iron and Iron binding capacity panel - Serum or Plasma IRON + TIBC Lab Routine Iron deficiency anemia, unspecified iron deficiency anemia type Expected: 12/10/2023, Expires: 03/10/2024 [facility] Work Phone: Comment on above: Expected: 12/10/2023 , Expires: 03/10/2024 Start: 09-28-2023 Anes integ extremiti es ant trunk & perineum nos ANESTH SKIN EXT/PER/ATRUNK [facility] Start: 09-28-2023 Incision & drainage abscess complicated/multiple I&D ABSCESS COMP/MULTIPLE [facility] Start: 09-28-2023 Secondary closure garrett rg wound/dehsn extsv/complic SEC CLSR SURG WND/DEHSN XTN [facility] Start: 09-28-2023 Patient discharge [facility] Start: 09-28-2023 Urine test [facility] Start: 09-17-2023 Behavioral Health Screening Behavioral Health Screening [facility] Start: 09-17-2023 [facility] Start: 09-17-2023 zzBehavioral Health Screening zzBehavioral Health Screening [facility] Start: 09-16-2023 DEPRESSION ASSESSMENT DEPRESSION ASS [facility] Comment on above: Postponed from 09/17 (Declined at this time) Start: 2023 Hepatitis B surface antibody level LDL CHOLESTEROL [facility] Start: 06-06-2023 Hemoglobin A1c/Hemoglobin.total in Blood HBA1C [facility] Start: 05-18-2023 Influenza vaccination C [facility] Start: 05-04-2023 End: 07-04-2023 25-hydroxyvitamin D3 [Mass/volume] in Serum or Plasma VITAMIN D 25 HYDROXY Lab Routine Vitamin D deficiency Expected: 05/04/2023 (Approximate), Expires: 07/04/2023 [facility] Work Phone: Comment on above: Expected: 05/04/2023 (Approximate), Expires: 07/04/2023 Start: 05-04-2023 End: 07-04-2023 CBC panel - Blood by Automated count CBC Lab Routine Iron deficiency anemia, unspecified iron deficiency anemia type Expected: 05/04/2023 (Approximate), Expires: 07/04/2023 [facility] Work Phone: Comment on above: Expected: 05/04/2023 (Approximate), Expires: 07/04/2023 Start: 05-04-2023 End: 07-04-2023 Comprehensive metabolic 2000 panel - Serum or Plasma COMP METABOLIC PANEL Lab Routine Encounter for long-term current use of medication Expected: 05/04/2023 (Approximate), Expires: 07/04/2023 [facility] Work Phone: Comment on above: Expected: 05/04/2023 (Approximate), Expires: 07/04/2023 Start: 03-31-2023 Hepatitis C antibody , confirmatory test DILATED RETINAL EXAM [facility] Start: 03-21-2023 End: 05-21-2023 25-hydroxyvitamin D3 [Mass/volume] in Serum or Plasma VITAMIN D 25 HYDROXY Lab Routine Encounter for therapeutic drug monitoring Expected: 03/21/2023, Expires: 05/21/2023 [facility] Work Phone: Comment on above: Expected: 03/21/2023 , Expires: 05/21/2023 Start: 03-21-2023 End: 05-21-2023 ALBUMIN/CREAT RATIO RND UR ALBUMIN/CREAT RATIO RND UR Lab Routine Controlled type 2 diabetes mellitus without complication, without long-term current use of insulin (HCC) Encounter for therapeutic drug monitoring Expected: 03/21/2023, Expires: 05/21/2023 [facility] Work Phone: Comment on above: Expected: 03/21/2023 , Expires: 05/21/2023 Start: 03-21-2023 End: 05-21-2023 CBC W Auto Differential panel - Blood CBC + DIFF Lab Routine Encounter for therapeutic drug monitoring Iron deficiency anemia secondary to inadequate dietary iron intake Expected: 03/21/2023, Expires: 05/21/2023 [facility] Work Phone: Comment on above: Expected: 03/21/2023 , Expires: 05/21/2023 Start: 03-21-2023 End: 05-21-2023 Comprehensive metabolic 2000 panel - Serum or Plasma COMP METABOLIC PANEL Lab Routine Encounter for therapeutic drug monitoring Expected: 03/21/2023, Expires: 05/21/2023 [facility] Work Phone: Comment on above: Expected: 03/21/2023 , Expires: 05/21/2023 Start: 03-21-2023 End: 05-21-2023 Ferritin [Mass/volume] in Serum or Plasma FERRITIN BLD Lab Routine Encounter for therapeutic drug monitoring Iron deficiency anemia secondary to inadequate dietary iron intake Expected: 03/21/2023, Expires: 05/21/2023 [facility] Work Phone: Comment on above: Expected: 03/21/2023 , Expires: 05/21/2023 Start: 03-21-2023 End: 05-21-2023 Hemoglobin A1c in Blood HGB A1C Lab Routine Controlled type 2 diabetes mellitus without complication, without long-term current use of insulin ([facility]) Encounter for therapeutic drug monitoring Expected: 03/21/2023, Expires: 05/21/2023 [facility] Work Phone: Comment on above: Expected: 03/21/2023 , Expires: 05/21/2023 Start: 03-21-2023 End: 05-21-2023 Iron and Iron binding capacity panel - Serum or Plasma IRON + TIBC Lab Routine Encounter for therapeutic drug monitoring Iron deficiency anemia secondary to inadequate dietary iron intake Expected: 03/21/2023, Expires: 05/21/2023 [facility] Work Phone: Comment on above: Expected: 03/21/2023 , Expires: 05/21/2023 Start: 03-21-2023 End: 05-21-2023 Lipid 1996 panel - Serum or Plasma LIPID PANEL BASIC Lab Routine Encounter for therapeutic drug monitoring Hyperlipidemia with target LDL less than 100 Expected: 03/21/2023, Expires: 05/21/2023 [facility] Work Phone: Comment on above: Expected: 03/21/2023 , Expires: 05/21/2023 Start: 03-21-2023 End: 05-21-2023 Magnesium [Mass/volume] in Serum or Plasma MAGNESIUM BLD Lab Routine Encounter for therapeutic drug monitoring Expected: 03/21/2023, Expires: 05/21/2023 [facility] Work Phone: Comment on above: Expected: 03/21/2023 , Expires: 05/21/2023 Start: 03-06-2023 End: 05-06-2023 25-hydroxyvitamin D3 [Mass/volume] in Serum or Plasma [facility] Work Phone: Comment on above: Expected: 03/06/2023 , Expires: 05/06/2023 Start: 03-06-2023 End: 05-06-2023 ALBUMIN/CREAT RATIO RND UR [facility] Work Phone: Comment on above: Expected: 03/06/2023 , Expires: 05/06/2023 Start: 03-06-2023 End: 05-06-2023 Comprehensive metabolic 2000 panel - Serum or Plasma [facility] Work Phone: Comment on above: Expected: 03/06/2023 , Expires: 05/06/2023 Start: 03-06-2023 End: 05-06-2023 Hemoglobin A1c in Blood [facility] Work Phone: Comment on above: Expected: 03/06/2023 , Expires: 05/06/2023 Start: 03-06-2023 End: 05-06-2023 Iron and Iron binding capacity panel - Serum or Plasma [facility] Work Phone: Comment on above: Expected: 03/06/2023 , Expires: 05/06/2023 Start: 03-06-2023 End: 05-06-2023 LIPID PANEL, NONFASTING [facility] Work Phone: Comment on above: Expected: 03/06/2023 , Expires: 05/06/2023 Start: 03-06-2023 End: 05-06-2023 Thyrotropin [Units/volume] in Serum or Plasma [facility] Work Phone: Comment on above: Expected: 03/06/2023 , Expires: 05/06/2023 Start: 03-01-2023 Hemoglobin A1c/Hemoglobin.total in Blood HBA1C [facility] Start: 09-17-2022 DEPRESSION ASSESSMENT DEPRESSION ASS ESSMENT [facility] Start: 08-15-2022 Adult depression screening assessment DEPRESSION SCREENING [facility] Start: 08-15-2022 COVID-19 VACCINE (#1) COVID-19 VACCI NE (#1) [facility] Comment on above: Postponed from 08/31 (Declined at this time) Postponed from 03/01 (Declined at this time) Start: 07-25-2022 End: 07-25-2022 Administration of blood product [facility] Work Phone: Start: 07-07-2022 End: 09-06-2022 CBC panel - Blood by Automated count CBC Lab Routine RBC microcytosis Expected: 07/07/2022, Expires: 09/06/2022 [facility] Work Phone: Comment on above: Expected: 07/07/2022 , Expires: 09/06/2022 Start: 07-07-2022 End: 09-06-2022 Comprehensive metabolic 2000 panel - Serum or Plasma COMP METABOLIC PANEL Lab Routine Uncontrolled type 2 diabetes mellitus with hyperglycemia (HCC) Expected: 07/07/2022, Expires: 09/06/2022 [facility] Work Phone: Comment on above: Expected: 07/07/2022 , Expires: 09/06/2022 Start: 07-07-2022 End: 09-06-2022 Ferritin [Mass/volume] in Serum or Plasma FERRITIN BLD Lab Routine RBC microcytosis Iron deficiency Expected: 07/07/2022, Expires: 09/06/2022 [facility] Work Phone: Comment on above: Expected: 07/07/2022 , Expires: 09/06/2022 Start: 07-07-2022 End: 09-06-2022 Hemoglobin A1c in Blood HGB A1C Lab Routine Uncontrolled type 2 diabetes mellitus with hyperglycemia (HCC) Expected: 07/07/2022, Expires: 09/06/2022 [facility] Work Phone: Comment on above: Expected: 07/07/2022 , Expires: 09/06/2022 Start: 07-07-2022 End: 09-06-2022 Iron and Iron binding capacity panel - Serum or Plasma IRON + TIBC Lab Routine RBC microcytosis Iron deficiency Expected: 07/07/2022, Expires: 09/06/2022 [facility] Work Phone: Comment on above: Expected: 07/07/2022 , Expires: 09/06/2022 Start: 07-07-2022 End: 09-06-2022 Lipid 1996 panel - Serum or Plasma LIPID PANEL BASIC Lab Routine Hyperlipidemia, unspecified hyperlipidemia type Expected: 07/07/2022, Expires: 09/06/2022 [facility] Work Phone: Comment on above: Expected: 07/07/2022 , Expires: 09/06/2022 Start: 05-18-2022 Influenza vaccination INFLUENZA (#1) [facility] Start: 03-27-2022 End: 05-27-2022 ALBUMIN/CREAT RATIO RND UR ALBUMIN/CREAT RATIO RND UR Lab Routine Controlled type 2 diabetes mellitus without complication, without long-term current use of insulin (HCC) Expected: 03/27/2022, Expires: 05/27/2022 [facility] Work Phone: Comment on above: Expected: 03/27/2022 , Expires: 05/27/2022 Start: 03-27-2022 End: 05-27-2022 CBC panel - Blood by Automated count CBC Lab Routine RBC microcytosis Encounter for long-term current use of medication Thrombocytopenia (HCC) Expected: 03/27/2022, Expires: 05/27/2022 [facility] Work Phone: Comment on above: Expected: 03/27/2022 , Expires: 05/27/2022 Start: 03-27-2022 End: 05-27-2022 Comprehensive metabolic 2000 panel - Serum or Plasma COMP METABOLIC PANEL Lab Routine Controlled type 2 diabetes mellitus without complication, without long-term current use of insulin (HCC) Elevated LFTs Encounter for long-term current use of medication Expected: 03/27/2022, Expires: 05/27/2022 [facility] Work Phone: Comment on above: Expected: 03/27/2022 , Expires: 05/27/2022 Start: 03-27-2022 End: 05-27-2022 Ferritin [Mass/volume] in Serum or Plasma FERRITIN BLD Lab Routine Iron deficiency Expected: 03/27/2022, Expires: 05/27/2022 [facility] Work Phone: Comment on above: Expected: 03/27/2022 , Expires: 05/27/2022 Start: 03-27-2022 End: 05-27-2022 Hemoglobin A1c in Blood HGB A1C Lab Routine Controlled type 2 diabetes mellitus without complication, without long-term current use of insulin (HCC) Expected: 03/27/2022, Expires: 05/27/2022 [facility] Work Phone: Comment on above: Expected: 03/27/2022 , Expires: 05/27/2022 Start: 03-27-2022 End: 05-27-2022 Iron and Iron binding capacity panel - Serum or Plasma IRON + TIBC Lab Routine Iron deficiency Expected: 03/27/2022, Expires: 05/27/2022 [facility] Work Phone: Comment on above: Expected: 03/27/2022 , Expires: 05/27/2022 Start: 03-27-2022 End: 05-27-2022 Lipid 1996 panel - Serum or Plasma LIPID PANEL BASIC Lab Routine Hyperlipidemia, unspecified hyperlipidemia type Expected: 03/27/2022, Expires: 05/27/2022 [facility] Work Phone: Comment on above: Expected: 03/27/2022 , Expires: 05/27/2022 Start: 02-02-2022 Hepatitis B surface antibody level LDL CHOLESTEROL [facility] Start: 01-03-2022 Hepatitis B screening URINE AL BUMIN:CREATININE RATIO [facility] Start: 10-15-2021 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 JASS DISEASE VISIT ANNUAL PCP TEAM CHRONIC DISEASE VISIT [facility] Start: 09-17-2021 DEPRESSION ASSESSMENT DEPRESSION ASS ESSMENT [facility] Start: 2021 Mammography [facility] Start: 2021 Screening for malign ant neoplasm of breast Mammogram Screening [facility] Start: 05-05-2021 Hemoglobin A1c/Hemoglobin.total in Blood HBA1C [facility] Start: 03-16-2021 3 comp foot exam completed DIABETIC FOOT EXAM [facility] Start: 03-16-2021 Diabetic foot examination Diabetic Foot Exam [facility] Start: 01-27-2021 TWO PNEUMOVAX 5 YEAR S APART PRIOR TO AGE 65 (#2) TWO PNEUMOVAX 5 YEARS APART PRIOR TO AGE 65 (#2) [facility] Start: 12-02-2020 Hepatitis C antibody , confirmatory test DILATED RETINAL EXAM [facility] Start: 01-27-2017 PNEUMOCOCCAL (2 - PCV) PNEUMOCOCCAL (2 - PCV) [facility] Start: 01-27-2017 Pneumococcal vaccination [facility] Start: 2008 HPV Vaccine (1 - 3-d ose SCDM series) HPV Vaccine (1 - 3-dose SCDM series) [facility] Start: 2000 ADULT PREVNAR ADULT PREVNAR [facility] Start: 2000 HEPATITIS B (1 of 3 - Risk 3-dose series) HEPATITIS B (1 of 3 - Risk 3-dose series) [facility] Start: 2000 Hepatitis B Vaccine (1 of 3 - 19+ 3-dose series) Hepatitis B Vaccine (1 of 3 - 19+ 3-dose series) [facility] Start: 1999 Anxiety Screening Anxiety Screening [facility] Start: 1999 Depression Screening Depression Scre ening [facility] Start: 03-01-1982 COVID-19 VACCINE (#1) COVID-19 VACCI NE (#1) [facility] Start: 1981 HEPATITIS B (1 of 3 - 3-dose series) HEPATITIS B (1 of 3 - 3-dose series) [facility] Start: 1981 Hepatitis B Vaccine (1 of 3 - 3-dose series) Hepatitis B Vaccine (1 of 3 - 3-dose series) [facility] Bacteria identified in Unspecified specimen by Anaerobe culture [facility] Bacteria identified in Urine by Culture BACTERIAL CULTURE, URINE Microbiology Routine Chronic midline low back pain, unspecified whether sciatica present Ordered: 12/23/2024 [facility] Work Phone: Comment on above: Ordered: 12/23/2024 End: 07-01-2025 CBC panel - Blood by Automated count COMPLETE BLOOD COUNT Lab Routine Uncontrolled type 2 diabetes mellitus with hyperglycemia (HCC) Every 3 months for 90 Occurrences starting 07/01/2024 until 07/01/2025 [facility] Comment on above: Every 3 months for 9 0 Occurrences starting 07/01/2024 until 07/01/2025 End: 07-01-2025 Comprehensive metabolic 2000 panel - Serum or Plasma COMPREHENSIVE METABOLIC PANEL Lab Routine Uncontrolled type 2 diabetes mellitus with hyperglycemia (HCC) Every 3 months for 90 Occurrences starting 07/01/2024 until 07/01/2025 [facility] Comment on above: Every 3 months for 9 0 Occurrences starting 07/01/2024 until 07/01/2025 End: 08-15-2025 DBT Breast - bilateral screening NEREIDA SCREENING W JOSEMANUEL Radiology Routine Encounter for screening mammogram for breast cancer 1 Occurrences starting 07/16/2024 until 08/15/2025 [facility] Work Phone: Comment on above: 1 Occurrences starti ng 07/16/2024 until 08/15/2025 Fungus identified in Unspecified specimen by Culture [facility] Fungus identified in Unspecified specimen by Culture [facility] End: 07-01-2025 Hemoglobin A1c in Blood HEMOGLOBIN A1C Lab Routine Uncontrolled type 2 diabetes mellitus with hyperglycemia (HCC) Every 3 months for 90 Occurrences starting 07/01/2024 until 07/01/2025 [facility] Work Phone: Comment on above: Every 3 months for 9 0 Occurrences starting 07/01/2024 until 07/01/2025 End: 10-06-2023 NEREIDA SCREENING NEREIDA SCREENING Radiology Routine Encounter for screening mammogram for breast cancer 1 Occurrences starting 09/06/2022 until 10/06/2023 [facility] Work Phone: Comment on above: 1 Occurrences starti ng 09/06/2022 until 10/06/2023 End: 01-22-2026 MR Lumbar spine WO contrast MRI LUMBAR SPINE WO IVCON Radiology Routine Chronic midline low back pain, unspecified whether sciatica present Radiculopathy of lumbar region 1 Occurrences starting 12/23/2024 until 01/22/2026 [facility] Comment on above: 1 Occurrences starti ng 12/23/2024 until 01/22/2026 Ova and parasites identified in Unspecified specimen by Light microscopy OVA + PARA MICROSCOPIC Microbiology Routine Tapeworm Ordered: 04/24/2024 [facility] Work Phone: Comment on above: Ordered: 04/24/2024 Patient Education [facility] Work Phone: Patient referral [facility] Work Phone: End: 03-20-2024 US DVT LOWER RIGHT US DVT LOWER RIGHT Radiology Routine Cellulitis of right lower extremity Bilateral leg edema 1 Occurrences starting 02/19/2023 until 03/20/2024 [facility] Work Phone: Comment on above: 1 Occurrences starti ng 02/19/2023 until 03/20/2024 End: 03-21-2024 XR FOOT GENERAL 3V AP/LAT/OBL BILATERAL XR FOOT GENERAL 3V AP/LAT/OBL BILATERAL Radiology Routine Bilateral foot pain 1 Occurrences starting 02/20/2023 until 03/21/2024 [facility] Work Phone: Comment on above: 1 Occurrences starti ng 02/20/2023 until 03/21/2024 End: 03-20-2025 XR Knee - left 4 Views XR KNEE GENERAL 4V AP BOTH/PA BOTH/LAT/MERC LEFT Radiology Routine Left knee pain, unspecified chronicity 1 Occurrences starting 02/19/2024 until 03/20/2025 [facility] Work Phone: Comment on above: 1 Occurrences starti ng 02/19/2024 until 03/20/2025 [facility] Immunizations Immunization Date Immunization Notes Care Provider Luca hernandez 08-15-2021 influenza, injectabl e, quadrivalent, contains preservative Rodri Chauhan MD Work Phone: [facility] Work Phone: 08-15-2021 influenza virus vaccine, unspecified formulation Rodri Chauhan MD Work Phone: [facility] 07-10-2019 influenza, injectabl e, quadrivalent, contains preservative Rodri Chauhan MD Work Phone: [facility] Work Phone: 11-11-2018 influenza, injectabl e, quadrivalent, preservative free Rodri Chauhan MD Work Phone: [facility] 09-04-2017 influenza, injectabl e, quadrivalent, contains preservative Rodri Chauhan MD Work Phone: [facility] 07-16-2017 tetanus toxoid, redu delmi diphtheria toxoid, and acellular pertussis vaccine, adsorbed Rodri Chauhan MD Work Phone: [facility] Work Phone: 01-28-2016 pneumococcal polysaccharide vaccine, 23 valent Rodri Chauhan MD Work Phone: [facility] 09-02-2014 influenza, seasonal, injectable Rodri Chauhan MD Work Phone: [facility] 08-18-2011 tetanus toxoid, redu delmi diphtheria toxoid, and acellular pertussis vaccine, adsorbed Rodri Chauhan MD Work Phone: [facility] 07-17-2007 influenza virus vaccine, unspecified formulation Rodri Chauhan MD Work Phone: [facility] Work Phone: NEGATED: Highlighted row has not occurred!09-01-2022 influenza, injectable, quadrivalent, contains preservative Johnson Rm APRN.CNS Work Phone: [facility] Work Phone: Comment on above: Deferred: Postponed - Verified by Regina Patterson LPN Payers Date Payer Category Payer Private Health Insurance [id number] 2024 Unknown [id number] 2024 Self-pay [id number] 2022 Medicaid [id number] 2018 Medicaid [employer] [id number] 2018-Present [phone] [address] [place] [address] Medicaid [id number] 2018 Medicaid [id number] Unknown Unknown [employer] [id number] Unknown [id number] [id number]. 462 Unknown [id number] 2.16.840.1.833075.3.579.2. 462 Unknown [id number] 2.16.840.1.170059.3.579.2. 462 Unknown [id number] 2.16.840.1.361187.3.579.2. 462 Unknown [id number] 2.16.840.1.971558.3.579.2. 462 Unknown [id number] 2.16.840.1.910465.3.579.2. 462 Unknown [id number] 2.16.840.1.593755.3.579.2. 462 Unknown [id number] 2.16.840.1.581826.3.579.2. 462 Unknown [id number] 2.16.840.1.783777.3.579.2. 462 Unknown [id number] 2.16.840.1.967323.3.579.2. 462 Unknown [id number] 2.16.840.1.308436.3.579.2. 462 Unknown [id number] 2.16.840.1.257681.3.579.2. 462 Unknown [id number] 2.16.840.1.700013.3.579.2. 462 Unknown [id number] 2.16.840.1.622652.3.579.2. 462 Unknown [id number] 2.16.840.1.232261.3.579.2. 462 Unknown [id number] 2.16.840.1.848218.3.579.2. 462 Unknown [id number] 2.16.840.1.818586.3.579.2. 462 Unknown [id number] 2.16.840.1.980156.3.579.2. 462 Unknown [id number] 2.16.840.1.022313.3.579.2. 462 Unknown [id number] Unknown [id number] Unknown [id number] Social History Date Type Detail Facility Start: 02-20-2019 End: 12-16-2024 Tobacco smoking status NHIS Ex-smoker [facility] Start: 08-17-1998 History of tobacco use Cigarette Smo ker [facility] Start: 02-20-2019 End: 07-31-2023 Cigarettes smoked current (pack per day) - Reported 1 [facility] Work Phone: Start: 02-20-2019 End: 01-20-2025 Tobacco use and exposure Smokeless tobacco non-user [facility] Start: 08-15-2021 End: 02-19-2023 Alcohol intake Current drinker of alcohol (finding) [facility] Start: 12-02-2013 History SDOH Alcohol Comment Seldom [facility] Start: 1980 Sex Assigned At Not on file C [facility] Start: 03-17-2022 End: 03-27-2022 Exposure to SARS-CoV-2 (event) Not sure [facility] Start: 08-17-1998 History of tobacco use Current smoke r [facility] Start: 06-01-2022 End: 09-25-2023 Tobacco smoking status ARIS Unknown if ever smoked [facility] Start: 07-01-2019 None [facility] Start: 11-08-2019 With Family [facility] Start: 12-30-2020 Cigarettes [facility] Start: 1980 Sex Assigned At Female [facility] [place] Start: 05-24-2022 End: 06-03-2022 Exposure to SARS-CoV-2 (event) Unable to assess [facility] Start: 02-19-2023 End: 12-23-2024 Tobacco smoking status NHIS Smokes tobacco daily [facility] Work Phone: Start: 03-06-2023 End: 07-31-2023 Tobacco use panel [facility] Work Phone: Start: 08-18-2012 Adult Depression Screening Assessment 6 [facility] Work Phone: Start: 04-27-2023 End: 05-12-2025 Alcohol intake Lifetime non-drinker (finding) [facility] Are you now , , , , never or living with a partner? Living with partner [facility] How often to you hav e a drink containing alcohol? Never [facility] How hard is it for y ou to pay for the very basics like food, housing, medical care, and heating Very hard [facility] Do you feel stress - tense, restless, nervous, or anxious, or unable to sleep at night because your mind is troubled all the time - these days [OSQ] Very much [facility] (I/We) worried whetenisha er (my/our) food would run out before (I/we) got money to buy more. Sometimes true [facility] The food that (I/we) bought just didn't last, and (I/we) didn't have money to get more. Often true [facility] In the past 12 month s, was there a time when you were not able to pay the mortgage or rent on time? Yes [facility] Do you belong to any clubs or organizations such as orthodox groups, unions, fraternal or athletic groups, or school groups? No [facility] Are you now , , , , never or living with a partner? Never [facility] How hard is it for y ou to pay for the very basics like food, housing, medical care, and heating Somewhat hard [facility] Start: 12-15-2024 End: 12-16-2024 Sex Female (finding) [facility] Start: 08-17-1998 Tobacco smoking stat [facility] Occasional tobacco smoker [facility] Start: 07-04-2025 Tobacco smoking stat [facility] Current Heavy tobacco smoker [facility] NEGATED: Highlighted row [facility] Medical Equipment Procedure Code Equipment Code Equipment Original Text Equipment Identifier Dates Incision and drainage, abscess BIOSKIN, 4CM X 4CM FDA Start: 09-28-2023 Incision and drainage, abscess BIOSKIN, 4CM X 4CM FDA Start: 09-28-2023 Incision and drainage, abscess BIOSKIN, 4CM X 4CM FDA Start: 09-28-2023 Incision and drainage, abscess BIOSKIN, 4CM X 4CM FDA Start: 09-28-2023 Incision and drainage, abscess BIOSKIN, 4CM X 4CM FDA Start: 09-28-2023 Incision and drainage, abscess BIOSKIN, 4CM X 4CM FDA Start: 09-28-2023 Incision and drainage, abscess BIOSKIN, 4CM X 4CM FDA Start: 09-28-2023 Incision and drainage, abscess BIOSKIN, 4CM X 4CM FDA Start: 09-28-2023 Incision and drainage, abscess BIOSKIN, 4CM X 4CM FDA Start: 09-28-2023 Incision and drainage, abscess BIOSKIN, 4CM X 4CM FDA Start: 09-28-2023 Incision and drainage, abscess BIOSKIN, 4CM X 4CM FDA Start: 09-28-2023 Incision and drainage, abscess BIOSKIN, 4CM X 4CM FDA Start: 09-28-2023 Incision and drainage, abscess BIOSKIN, 4CM X 4CM FDA Start: 09-28-2023 Incision and drainage, abscess BIOSKIN, 4CM X 4CM FDA Start: 09-28-2023 Incision and drainage, abscess BIOSKIN, 4CM X 4CM FDA Start: 09-28-2023 [id number], [id number], [id number], [id number], [id number], [id number], [id number], [id number] Start: 01-03-2021 End: 12-17-2024 Comment on above: Test blood sugar(s) 1 times daily and as needed. Dx: Type 2 DM - Controlled E11.9 Insulin: No Check sugars once da tonny and as needed for symptoms of high or low sugars Dx E11.9 Insulin: no Use as instructed Test blood sugar(s) one time daily. Dx: Type 2 DM - Controlled E11.9 Insulin: No Test blood sugar(s) once times daily. Dx: Type 2 DM - Controlled E11.9 Insulin: No Goals Date Patient Goal Desired Activity /State Functional Status Date Assessment Result Facility 03-12-2015 Are you deaf, or do you have serious difficulty hearing No 03/12/2015 2:54 PM EDT Sandy Warren RN No [facility] 03-12-2015 Are you blind, or do you have serious difficulty seeing, even when wearing glasses No 03/12/2015 2:54 PM MONIQUET Sandy Warren RN No [facility] 03-12-2015 Do you have serious difficulty walking or climbing stairs No 03/12/2015 2:54 PM MONIQUET Sandy Warren RN No [facility] 03-12-2015 Do you have difficul ty dressing or bathing No 03/12/2015 2:54 PM EDT Sandy Warren RN No [facility] 01-29-2015 Because of a physica l, mental, or emotional condition, do you have difficulty doing errands alone such as visiting a physician's office or shopping No 01/29/2015 1:30 PM EDT Ernestina Lovell MA No [facility] Mental Status Date Assessment Result Facility 07-04-2025 Cognitive function Level Of Cons ciousness Awake [facility] Work Phone: 09-28-2023 Cognitive function Voice/Name [facility] Work Phone: 03-12-2015 Because of a physica l, mental, or emotional condition, do you have serious difficulty concentrating, remembering, or making decisions No 03/12/2015 2:54 PM EDT Sandy Warren RN No [facility] Clinical Notes 12-11-2016 to 07-10-2025 Note Date & Type Note Facility 07-10-2025 Note HNO ID: [id number] Author: NANCI COOK PT Service: ? Author Type: Physical Therapist Type: Progress Notes Filed: 07/10/2025 10:43 Note Text: Episode Visit Count: 5 Therapist That Will Accept/Oversee The Plan Of Care: Nanci Cook Start of Care Date: 02/24/25 Onset Date: 02/24/10 Plan of Care Certification Date: 07/10/25 Next Certification Due Date: 07/10/25 [facility] PHYSICAL THERAPY DISCONTINUANCE OF CARE PLAN OF CARE UPDATE: Assessment: Nanci Rodriguez is discontinued from Physical Therapy services due to Patient/Clinician mutual decision to discontinue current plan of care.. Patient was seen for 5 visits from Start of Care Date: 02/24/25 to 07/10/2025 and treatment included: Therapeutic exercise, Therapeutic activities, Self-nursing home management, and Gait training. Goals for Episode of Care: established 02/24/25 Goals updated on 04/29/2025. Goals updated on 07/10/2025. Independent in home exercises. -- MET Patient will decrease pain to 1-2/10 with functional activities to allow patient to improve ambulation, transfers, and standing tolerance for ADLs. -- NOT MET Restore pain-free lumbar ROM to minimal to no limitation extension to allow for improved posture and reduced paraspinal muscle strain with standing/walking and transfers. -- Met Stand / Walk 10-15 minutes without increased pain/symptoms. -- MET Sleep through night without pain/symptoms. -- NOT MET Maintain proper sitting posture throughout session -- NOT MET Patient Goals: reduce LBP, get MRI approved by insurance -- NOT MET >1 rep of sit <> stand reps in 30 seconds with use of BUEs on arm rests -- MET SUBJECTIVE: Pt. reports things have been rough for her. Has been doing the exercises. Walks without the rollator in the house. Wants to return to physician due to no change in back pain. Pt. admits to much weight gain and relapse in smoking again since her mother .. Patient Goals: reduce LBP, get MRI approved by insurance. Sleep better and get my health better. Walk better. Functional Limitations: standing, walking in the house, walking in the community, stair negotiation, bed mobility, sleeping Pain: Pain Pain Level: 8 Pain Location: Knee - Left Description: Aching Additional Pain Information : Location 2 Pain Level 2: 8 Pain Location 2: Back Description 2: Aching Post Treatment Pain Post Treatment Pain Level: No Change Post Treatment Pain Location: Low Back/Lumbar Spine - Left PROMIS Scales 06/28/2025 04/28/2025 04/02/2025 Higher is Better Phys Func - T Score 40 (mild dysfunction) 33 (moderate dysfunction) 36 (moderate dysfunction) Phys Func - Percentile 16 4 8 Self-Eff Symptom - T Score 41 (Average) 32 (Low) 48 (Average) Self-Eff Symptom - Percentile 18 4 42 T-Score and Percentile Interpretation T-scores: mean of general population = 50. 5 points is clinically meaningfully difference Percentiles provide an indication of how the patient's score ranks in relation to the general population. Higher percentile rankings indicate better function/quality of life. 50th percentile is the average of the general population and indicates half of respondents had a worse score. OBJECTIVE MEASURES WITH LEVEL OF FUNCTION: Lumbar Spine AROM Lumbar Flexion: Normal Lumbar Extension: Minimal limitation Lumbar R Side [address]: Normal Lumbar L Side [address]: Normal Lumbar R Side-Bend: Normal Lumbar L Side-Bend: Normal Lumbar R Rotation: Normal Lumbar L Rotation: Normal Gait Gait: Independent Gait Distance (feet): 160 Gait Device: None Gait Deviations: General Deviations General Deviations/Observations: Trunk Control Decreased, Step length decreased, Lateral sway increased Functional Performance Test Results 30 Second Chair Stand Test: 17 reps (without use of arm rests) TREATMENT: Therapeutic Exercise: 1: scifit stepper, seat 14, level 1, 1:1 throughout, subjective collected 5 min. 2: lumbar flexion, extension, SB each side, rotation each side, SG each side 1x each 3: seated TA, 4x10 4: standing TA 4x10 against the wall 5: 30 sec sit <> stand test x 17 reps without use of arm rests 6: standing hip abd 2x10 each LE Skilled Intervention: Patient was educated in proper exercise technique and purpose for exercises. Skilled judgment was used in selection of appropriate interventions. Gait Training: Distance (feet): 80' 6x Gait Cues: cues to minimize trunk sway Assistive Device: none Assist Level: supervision, verbal cues, Skilled Intervention: Patient was provided supervision during pre-gait/gait training to prevent falls and insure safety. Facilitated proper gait cycle with the use of verbal and visual cues for correction of gait deviations identified in the objective section above. Billing Therapeutic Exercise Treatment Minutes: 30 Gait Training Treatment Minutes: 10 Skilled Treatment Time Minutes (timed and untimed codes) (more content not included)... [facility] 07-04-2025 Discharge summary [facility] 07-04-2025 Radiology Diagnostic study note [facility] Imaging Services [address] [place] [id number] Chest PA and Lateral MR#: [id number] Acct: [id number] Name: NANCI RODRIGUEZ Rep #: [id number] : 1980 F 44 From: Shay Kessler MD PCP: Dr. Rodri Chauhan MD Status: RE G ER Study:Chest PA and Lateral Date of Exam: 07/04/25 Exam# [id number] Ordering Dr: Virginia Sweeney DO PROCEDURE: CHEST PA AND LATERAL 07/04/2025 REASON FOR EXAM: SOB TECHNIQUE: Procedure Code: RADCXR Modality: DX Procedure: CHEST PA AND LATERAL COMPARISON: None. FINDINGS: Lungs/Pleura: Clear. No pneumothorax or pleural effusion. Heart/Mediastinum: Within normal limits. Bones/Soft tissues: No significant abnormality. RAD/Chest PA and Lateral IMPRESSION: No acute cardiopulmonary disease. Reading Location: [id number] CC: Dr. Carri Sweeney DO; Dr. Rodri Chauhan MD ~ Financial Services Professional: Signed [facility] 07-04-2025 Discharge summary Note Date/Time July 04, 2025 11:23pm [facility] Medical Records Department [address] [place] [address] Emergency Department Summary 07/04/25 MR#: [id number] Acct: [id number] Name: NANCI RODRIGUEZ Rep #:[id number] : 1980 44 From: Carri Chappell PCP: Dr. Rodri Chauhan MD Status:DE P ER Location: ED HPI History of Present Illness Chief Complaint: General Illness Informant: patient Narrative Narrative: Patient is a 44-year-old female with history of lymphedema, morbid obesity, obstructive sleep apnea (on CPAP), type 2 diabetes mellitus with neuropathy, bipolar disorder and lumbar radiculopathy presenting with allover body pain and concern for increased edema. Patient states over the past 3 months she has had a 43 pound weight gain but does not weigh yourself regularly so she is not sure how fast this happened. She notes that she does have a chronic wound to her right lower leg which follows with wound care with Dr. Lord. Is currently wrapped. She states she has not been sleeping well lately because of her all ofher body discomfort. She notes has been having pain in her lower back and was worried it could be her kidneys. Had some mild nausea but no vomiting. Denies any chest pain. Denies any change in her urine output. Denies any urinary symptoms. Denies any fever or chills. No other complaints or concerns at this time reported. [facility] Medical History Open wound History of steroid therapy Diabetes Easy bruising Restless legs Migraine headache Wears glasses Cracked tooth Difficulty chewing GERD (gastroesophageal reflux disease) Electronic cigarette use CPAP (continuous positive airway pressure) dependence Shortness of breath on exertion History of stress test Anxiety Sleep apnea COPD (chronic obstructive pulmonary disease) Asthma Obesity Diabetes Bipolar 1 disorder Home Medications ?Medication ?Instructions ?Recorded ?Last Taken ?Type loratadine 10 mg tablet (Allergy 10 mg PO DAILY Allerg ies 07/07/13 11/07/19 History Relief (loratadine)) lorazepam 1 mg tablet 1 mg PO BID PRN PRN Anxiety 12/11/13 06/26/19 History montelukast 10 mg tablet 10 mg PO QHS 08/10/16 History sumatriptan succinate 25 mg tablet 25 mg PO .X1 PRN IA N Migraine 08/10/16 06/30/19 History (Imitrex) Symptoms aripiprazole 2 mg tablet 5 mg PO QHS 07/01/19 3 History citalopram 40 mg tablet 40 mg PO DAILY 07/01/1909/17 History lamotrigine 200 mg tablet 200 mg PO BID 07/01/1909/28 History metformin 500 mg tablet 1,000 mg PO BID dm 07/01/19 11/07/19 History naproxen 500 mg tablet 500 mg PO BID PRN PRN Pain O r Fever 07/01/19 Unknown History topiramate 100 mg tablet 100 mg PO BID 07/01/1911/07 History glimepiride 2 mg tablet 4 mg PO DAILY 11/08/1911/07 History lansoprazole 30 mg capsule,delayed 30 mg PO DAILY #30 CAPSULES 12/30/20 09/28/23 Rx release albuterol sulfate 90 mcg/actuation 2 puff inhalation Q 4H PRN PRN 09/07/22 09/28/23 Rx aerosol inhaler (Ventolin HFA) Wheezing ##1 ferrous sulfate 325 mg (65 mg 325 mg PO TID #90 tabs 1 11/08/21 Unknown Rx iron) tablet (FeroSul) furosemide 20 mg tablet 20 mg PO BID 09/07/22 Unknow n History cyclobenzaprine 10 mg tablet 10 mg PO TID PRN Muscle S pasm #20 12/09/22 Unknown Rx TABLETS pramipexole 1.5 mg tablet (Mirapex) 1.5 mg PO QHS 06/10 Unknown History ascorbic acid (vitamin C) 1,000 mg 1 g PO DAILY 90 day s #90 tabs 09/28/23 Unknown Rx tablet (Vitamin C) calcium 500 mg (as 1 tab PO DAILY 90 days #90 t abs 09/28/23 Unknown Rx carbonate)-vitamin D3 15 mcg (600 unit) tablet (Os-Wilfredo 500 + D3) cyclobenzaprine 10 mg tablet 10 mg PO TID 7 days #21 t abs 09/28/23 Unknown Rx docusate sodium 100 mg capsule 100 mg PO DAILY 10 days #10 caps 09/28/23 Unknown Rx (Colace) acetaminophen 500 mg tablet 1,000 mg (2 x 500 mg) PO Q 6H PRN 03/09/24 Unknown Rx (Tylenol Extra Strength) pain 7 days #56 tabs benztropine 1 mg tablet 1 mg PO BID PRN PRN legs Unknown History quetiapine 25 mg tablet (Seroquel) 25 mg PO DAILY 03/1804/09/24 History sulfamethoxazole 800 1 tab PO BID 2 weeks #28 tab s 06/25/24 Unknown Rx mg-trimethoprim 160 mg tablet (Bactrim DS) amoxicillin 875 mg-potassium 1 tab PO BID 2 weeks #28 tabs 07/02/24 Unknown Rx clavulanate 125 mg tablet gentamicin 0.1 % topical ointment 1 applic topical TID #30 grams 07/02/24 Unknown Rx cephalexin 500 mg capsule 500 mg PO Q6 #20 CAPSULES Unknown Rx hydrocodone-acetaminophen 5-325mg 1 tab PO Q6H PRN PRN Pain 3 days 12/15/24 Unknown Rx 5mg-325mg #10 TABLETS levofloxacin 500 mg tablet 500 mg PO DAILY 2 weeks #14 tabs 02/26/25 Unknown Rx furosemide 40 mg tablet (Lasix) 40 mg PO BID 5 days #1 0 tabs 07/04/25 Unknown Rx nitrofurantoin 100 mg PO Q12H 5 days #10 ca ps 07/04/25 Unknown Rx monohydrate/macrocrystals 100 mg capsule (Macrobid) Allergy/AdvReac Type Severity Reaction Status Date / Time amoxicillin (From Augmentin) Allergy Intermediate Hives Verified 07/04/25 18:08 clavulanic acid (From Allergy Intermediate Hives Verified 07/04/25 18:08 Augmentin) melatonin Allergy Hives Verified 07/04/25 18:08 Penicillins Allergy Hives Verified 07/04/25 18:08 tramadol Allergy Rash Verified 07/04/25 18:08 Surgical History History of cardiac catheterization History of umbilical hernia repair (~2016) History of herniorrhaphy Social History household members: none Smoking Status: Heavy Smoker (>10/day) Tobacco: How many years used: 20 how long ago did patient quit smokin months substance use type: does not use ROS ROS ED Constitutional Constitutional ED: Reports other Details: Unintentional weight gain ; Denies chills or fever(s) Cardiovascular Cardiovascular: Denies chest pain Respiratory/Chest Respiratory/Chest: Reports dyspnea on exertion; Denies cough or dyspnea Gastrointestinal Gastrointestinal: Denies abdominal pain, nausea or vomiting Musculoskeletal Musculoskeletal: Reports arthralgias and myalgias Integumentary Reports other Details: Chronic wound to the right lower leg ; Denies rash Neurologic Neurologic: Reports weakness; Denies paresthesias Psychiatric Psychiatric: Reports anxiety Hematologic/Lymphatic Hematologic/Lymphatic: Denies easy bleeding or easy bruising EXAM Physical Exam Const Vital Signs: 07/04/25 18:05 07/04/25 18:31 07/04/25 20:05 Temperature 97.8 F Temperature Source Oral Pulse Rate 114 H 105 H Respiratory Rate 18 17 Respiratory Pattern Normal Blood Pressure 177/121 H 121/69 H Blood Pressure Mean 139 86 Pulse Ox 99 96 Oxygen Delivery Method Room Air Room Air 07/04/25 21:57 07/04/25 21:58 Temperature 97.8 F Temperature Source Pulse Rate 103 H Respiratory Rate 20 H Respiratory Pattern Blood Pressure 179/84 H 165/83 H Blood Pressure Mean 115 110 Pulse Ox 97 97 Oxygen Delivery Method Room Air Positive well nourished and well developed General Appearance ED: well developed and NAD HEENT Reports moist mucous membranes Neck supple and no JVD Chest Wall inspection of chest normal Resp normal respiratory effort and clear to auscultation bilaterally Resp Narrative: No crackles or rhonchi appreciated Auscultation: Negative for diminished lung sounds Cardio regular rhythm and no murmurs Rate: tachycardic GI normal to inspection, nondistended, normoactive bowel sounds and non-tender GI Narrative: No pitting edema to the abdomen. No fluid wave present Extremity Extremity Narrative: Chronic appearing nonpitting edema to the bilateral lower extremities. There isbilateral erythema/plethora present with no associated lymphangitic streaking. Neuro oriented x3 Sensorium / Orientation: alert Motor Exam: general weakness Psych Mood & Affect: anxious MDM MDM MDM Narrative Medical decision making narrative: Patient is evaluated for allover body pain and concern for new or worsening edema and weight gain. On arrival patient's blood pressure is elevated at 177/121 and she is mildly tachycardic at a rate of 114. She is moving all extremities on any focal neurologic deficits. She has signs of chronic lymphedema but does not appear acutely volume overloaded on physical exam however I have never seen this patient before to know what her baseline looks like. Workup including CBC, CMP, TSH, urinalysis, urine (she reports she didnot have her period this month), BNP and EKG is obtained. Differential clues not limited to symptomatic anemia, electrolyte derangement, acute liver disease, rhabdomyolysis, decompensated/acute heart failure, thyroid abnormality, urinary tract infection (reports some low back pain) and /ectopic . Patient is tachycardic emergency room however chart review shows that this appears to be her baseline. Workup shows a mild leukopenia which prescribed for the patient. She has low platelet count of 80 which is nonspecific. These appear near her baseline. Herhemoglobin is normal. CMP is remarkable for elevated glucose of 233 however shehas a normal anion gap and bicarb and I suspect this is more chronic for her. Liver panel, proBNP and TSH are normal. Urine is negative. Urinalysis does show 500 leukocyte esterase with 0-5 white blood cells and 3+ bacteria. Will send for urine culture. Chest x-ray reviewed by myself as well as radiology does not show any acute cardiopulmonary disease. Discussed with patient that at this time I do not think she requires admission for IV diuresis but the exact cause of her worsening swelling and pain is not clear. It could be progression of her diabetic polyneuropathy or lymphedema. As her kidney function is normal and she is extra mildly hypertensive we will increase her Lasix for 5 days to try to diurese her further. She will continue follow-up with wound care. Will start her on Macrobid for possible urinary tract infection. Patient able to ambulate in the ER and does not have any hypoxia. Given return precautions. Discharged home in stable condition. Lab Data Attestation: I reviewed the patient's lab results. Labs: Laboratory Results - last 24 hr 07/04/25 19:35 WBC 4.3 L RBC 4.53 Hgb 13.1 Hct 40.5 MCV 89.4 MCH 28.9 MCHC 32.3 RDW Std Deviation 50.4 H RDW Coeff of Baltazar 15.4 H Plt Count 80 L MPV 9.9 Immature Gran % (Auto) 0.500 Neut % (Auto) 66.2 Lymph % (Auto) 25.9 [place] % (Auto) 5.3 Eos % (Auto) 1.6 Baso % (Auto) 0.5 Absolute Neuts (auto) 2.9 Absolute Lymphs (auto) 1.12 Nucleated RBC % 0 Sodium 139 Potassium 3.8 Chloride 104 Carbon Dioxide 24.3 Anion Gap 11 BUN 13 Creatinine 0.57 L Estim Creat Clear Calc 202.83 Est GFR (MDRD) Non-Af 116 BUN/Creatinine Ratio 22.7 H Glucose 233 H Calcium 8.6 Total Bilirubin 0.46 AST 28 ALT 25 Alkaline Phosphatase 114 H Total Creatine Kinase 45 NT pro BNP II < 36 Total Protein 7.2 Albumin 3.7 Globulin 3.5 Albumin/Globulin Ratio 1.1 TSH 1.000 Urine Color Yellow Urine Clarity Sl. Cloudy Urine pH 7.0 Ur Specific Warner 1.010 Urine Protein 15 H Urine Glucose (UA) 1000 H Urine Ketones Negative Urine Occult Blood Negative Urine Nitrite Negative Urine Bilirubin Negative Urine Urobilinogen 1 H Ur Leukocyte Esterase 500 H Urine RBC 0 SEEN Urine WBC 0-5 SEEN Ur Squamous Epith Cells 0-5 SEEN Amorphous Sediment 2+ Urine Bacteria 3+ Urine Mucus 0 SEEN Urine Test Negative Radiography Diagnostic Testing: Clinical Impression(s) from Imaging Studies Chest X-Ray 07/04/25 19:45 IMPRESSION: No acute cardiopulmonary disease. Reading Location: [facility] Rhythm Strip Rhythm Strip: Sinus Tach Rate: 105 Ectopy: None EKG Initial EKG: Attestation: I personally reviewed and interpreted this EKG as follows: Interpretation: Sinus Tachycardia Comments: Sinus tachycardia at a rate of 105 beats per minutes Normal axis Normal intervals, normal ST segments Prior EKG tracings: available for review Prior: Unchanged Discharge Plan Triage Chief Complaint: General Illness ED Provider: Carri Sweeney Dx/Rx/DC Orders Clinical Impression: Edema, Whole body pain, UTI (urinary tract infection) Instructions: Urinary Tract Infections in Women, ED Peripheral Edema, Bilateral, ED Pain, Acute, Uncertain Cause Prescriptions: New nitrofurantoin monohyd/m-cryst [Macrobid] 100 mg capsule 100 mg PO Q12H 5 Days Qty: 10 0RF Rx Instructions: must administer with a meal/food furosemide [Lasix] 40 mg tablet 40 mg PO BID 5 Days Qty: 10 0RF No Action loratadine [Allergy Relief (loratadine)] 10 MG tablet 10 mg PO DAILY lorazepam 1 MG tablet 1 mg PO BID PRN PRN (Reason: Anxiety) sumatriptan succinate [Imitrex] 25 MG tablet 25 mg PO .X1 PRN PRN (Reason: Migraine Symptoms) montelukast 10 MG tablet 10 mg PO QHS metformin 500 MG tablet 1,000 mg PO BID Patient Comments: TAKE 2 TABLETS TWICE DAILY WITH meals lamotrigine 200 mg tablet 200 mg PO BID Patient Comments: 1 tablet twice a day citalopram 40 tablet 40 mg PO DAILY topiramate 100 MG tablet 100 mg PO BID Patient Comments: TAKE 1 TABLET TWICE DAILY naproxen 500 MG tablet 500 mg PO BID PRN PRN (Reason: Pain Or Fever) Patient Comments: TAKE 1 TABLET TWICE DAILY WITH FOOD NEEDED FOR PAIN /inflammation aripiprazole 2 mg tablet 5 mg PO QHS Patient Comments: Take 1 tablet by mouth once a day glimepiride 2 MG tablet 4 mg PO DAILY lansoprazole 30 MG capsule 30 mg PO DAILY Qty: 30 0RF furosemide 20 mg tablet 20 mg PO BID ferrous sulfate [FeroSul] 325 mg (65 mg iron) tablet 325 mg PO TID Qty: 90 0RF Rx Instructions: May start once a day for a week, twice a day for a week, and then start 3 times daily. albuterol sulfate [Ventolin HFA] 90 mcg/actuation HFA aerosol inhaler 2 puff inhalation Q4H PRN MDD Dispense with spacer if availa PRN (Reason: Wheezing) Qty: 1 0RF cyclobenzaprine [cyclobenzaprine] 10 mg tablet 10 mg PO TID PRN (Reason: Muscle Spasm) Qty: 20 0RF pramipexole [Mirapex] 1.5 mg tablet 1.5 mg PO QHS cyclobenzaprine 10 mg tablet 10 mg PO TID 7 Days Qty: 21 0RF docusate sodium [Colace] 100 mg capsule 100 mg PO DAILY 10 Days Qty: 10 0RF ascorbic acid (vitamin C) [Vitamin C] 1,000 mg tablet 1 g PO DAILY 90 Days Qty: 90 0RF calcium carbonate-vitamin D3 [Os-Wilfredo 500 + D3] 500 mg-15 mcg (600 unit) tablet 1 tab PO DAILY 90 Days Qty: 90 0RF sulfamethoxazole-trimethoprim [Bactrim DS] 800-160 mg tablet 1 tab PO BID 14 Days Qty: 28 0RF amoxicillin-pot clavulanate 875-125 mg tablet 1 tab PO BID 14 Days Qty: 28 0RF gentamicin 0.1 % ointment 1 applic topical TID Qty: 30 1RF Rx Instructions: Applied to full-thickness wound to the posterior right leg daily and cover with dry sterile dressing. hydrocodone-acetaminophen 5-325 mg tablet 1 tab PO Q6H PRN PRN (Reason: Pain) 3 Days Qty: 10 0RF benztropine 1 mg tablet 1 mg PO BID PRN PRN (Reason: legs) acetaminophen [Tylenol Extra Strength] 500 mg tablet 1,000 mg PO Q6H PRN (Reason: pain) 7 Days Qty: 56 0RF quetiapine [Seroquel] 25 mg tablet 25 mg PO DAILY Rx Instructions: 3 tablets daily cephalexin 500 mg capsule 500 mg PO Q6 Qty: 20 0RF levofloxacin 500 mg tablet 500 mg PO DAILY 14 Days Qty: 14 0RF Primary Care Provider: Rodri Chauhan Referrals: Rodri Chauhan MD [Primary Care Provider, Internal Medicine] Activity Restrictions/Additional Instructions: Please double up your Lasix (take 40 mg twice a day) for the next 5 days. You been given additional prescription for this. In addition to being given medication for treatment for her urinary tract infection. If you have worseningsymptoms please return to the emergency room. Your workup otherwise was quite reassuring today. Continue to take Tylenol alternated with ibuprofen as needed for pain. Print Language: Nepalese Disposition Disposition: Home, Self Care Discharge Date/Time: 07/04/25 22:23 What to do if you have Problems For any increased pain, shortness of breath, bleeding, nausea or vomiting, chestpain, or any unexpected problems, contact your Primary Care Provider. Call [facility] ([phone]) or report to the closest Emergency Room. Call 911 if necessary. 07/05/25 0109 <Electronically signed by Carri Sweeney DO> Cosigner Signature (if applicable): CC: Dr. Rodri Chauhan MD ~ Signed [facility] Work Phone: [phone] 193-537710-07-2025 NoteHNO ID: [id number] Author: JOHNSON RM APRN.SENIOR SHAREPOINT ARCHITECT Service: ? Author Type: Nurse Specialist Type: Progress Notes Filed: 06/23/2025 16:25 Note Text: Subjective Patient ID: Nanci is a 44 year old female who presents for Acute Visit (Nipple discharge, blisters on bilateral breasts; chronic; last mammogram 2020). HPI The patient is a 44-year-old female with asthma and COPD, presenting for evaluation of bilateral nipple discharge and periareolar skin lesions. Nanci is a 44-year-old female with a history of asthma and COPD, presenting for evaluation of a cough and bilateral breast issues. Cough: - Productive cough with nasty mucus x1 week. - Associated with headaches and dyspnea. - Denies sore throat or otalgia. - Son had a brief illness recently. - Using inhaler and nebulizer TID with some relief. - Wakes up at night due to coughing. Breast Issues: - Bilateral nipple discharge and sores since 2020. - More discharge from the right breast than the left. - Occasional blood in discharge when squeezing the nipple area. - Describes sores as puffed up with white discharge when squeezed. - Occasional breast pain. - Last mammogram revealed cysts. - Denies feeling any deep lumps or bumps. Patient's last HgA1C was Hemoglobin A1C (%) Date Value 04/28/2025 6.6 01/20/2025 8.8 02/02/2021 11.2 01/03/2021 12.6 ) ROS Constitutional: (+) sleep disturbance Head: (+) headache Ears/Nose/Mouth/Throat: (-) sore throat, (-) ear pain Respiratory: (+) cough with sputum, (+) dyspnea, (+) wheezing Breast: (+) bilateral nipple discharge, (+) breast skin sores, (+) intermittent breast pain, (-) palpable breast lumps Objective BP 132/88 Pulse 104 Resp 16 Wt (!) 164 kg (361 lb 8.9 oz) LMP 10/13/2024 (Exact Date) SpO2 97% BMI 65.12 kg/m? Physical Exam Vitals and nursing note reviewed. Constitutional: Appearance: Normal appearance. HENT: Head: Normocephalic and atraumatic. Right Ear: Tympanic membrane and ear canal normal. Left Ear: Tympanic membrane and ear canal normal. Nose: Mucosal edema and rhinorrhea present. Mouth/Throat: Lips: [place]. Mouth: Mucous membranes are moist. Pharynx: Oropharynx is clear. Tonsils: No tonsillar exudate. Eyes: Conjunctiva/sclera: Conjunctivae normal. Cardiovascular: Rate and Rhythm: Normal rate. Pulmonary: Effort: Pulmonary effort is normal. Breath sounds: Wheezing present. Comments: few expiratory wheezes Skin: Comments: Pustule lesions across both breasts consistent with folliculitis, no palpable mass Neurological: General: No focal deficit present. Mental Status: She is alert and oriented to person, place, and time. 1. Breast pain (N64.4) 2. Nipple discharge (N64.52) 3. Skin lesions (L98.9) - Chronic bilateral breast pain, nipple discharge (occasionally bloody), and skin lesions with purulent drainage; previously noted cysts on mammogram in 2020. - Order bilateral breast ultrasound and diagnostic mammogram. - Start antibiotic to address skin lesions. 4. Bronchitis (J40) - Acute productive cough with purulent sputum, wheezing, and dyspnea for one week; history of asthma and COPD. Increase albuterol use - Start antibiotic to address bronchitis. - Advised use of inhaler or nebulizer every 4 hours as needed to improve respiratory symptoms. Johnson Rm, MARIJA.SENIOR SHAREPOINT ARCHITECT Medical Decision Making: Problems: Low: Acute, uncomplicated illness or injury and Stable chronic illness Data: Unique test result(s) reviewed: 2 Unique test(s) ordered: 2 Risk: Moderate: Drug management Medical Decision Making [facility]: [facility] NotePatient Outreach (INTMWS) NANCI RODRIGUEZ ([id number]) 1980 F Date Time Provider Department 06/16/25 RODRI CHAUHAN During your visit today, we recorded the following information about you: Allergies As of Date: 06/16/2025 Noted Allergy Reaction PENICILLINS 08/24/2011 9 - Itching 4 - Hives MELATONIN 11/08/2016 2 - Rash 4 - Hives TRAMADOL 07/10/2013 14 - Other: See Comments Comments: tic like movements WELLBUTRIN (BUPROPION) 03/12/2019 5 - Intolerance Comments: Dry mouth--severe, intolerable Date Reviewed: 05/12/2025 Reviewed by: Lizabeth Hurtado LPN - Fully Assessed Visit Diagnosis:Encounter for screening mammogram for breast cancer [Z12.31] Order(s):[facility] SCRE[facility]SEMANUEL [[id number]] Order #: [id number] FUTURE Prescriptions as of 07/17/2025 - HYDROcodone-acetaminophen (NORCO) 5-325 mg per tablet Take 1-2 tablets by mouth every 6 hours as needed for pain for up to 7 days. Patient should start on July 16, 2025. - promethazine (PHENERGAN) 12.5 mg tablet Take 1 tablet by mouth four times a day as needed for nausea/vomiting. - cyclobenzaprine (FLEXERIL) 10 mg tablet Take 1 tablet by mouth three times a day as needed for muscle spasm. May make drowsy - traZODone (DESYREL) 100 mg tablet Take 100 mg by mouth at bedtime as needed. - benzonatate (TESSALON PERLE) 100 mg capsule Take 1-2 capsules by mouth three times a day as needed. - albuterol HFA (VENTOLIN HFA) 90 mcg/actuation inhaler Inhale 2 puffs as instructed every 4 hours as needed. - topiramate (TOPAMAX) 100 mg tablet Take 1 tablet by mouth two times a day. - lansoprazole (PREVACID) 30 mg capsule Take 1 capsule by mouth daily before breakfast. - pramipexole (MIRAPEX) 1.5 mg tablet Take 1 tablet by mouth daily at bedtime. - celecoxib (CELEBREX) 400 mg capsule Take 1 capsule by mouth once daily. Take with food - SUMAtriptan (IMITREX) 25 mg tablet Take 1 tablet by mouth at onset of headache and may repeat in 2 hrs if needed. - dulaglutide (TRULICITY) 3 mg/0.5 mL pen injector Inject 3 mg subcutaneously one time a week. Inject dose once per week. Discard Pen After - furosemide (LASIX) 40 mg tablet Take 1 tablet by mouth once daily. - ferrous sulfate 325 mg (65 mg iron) tablet Take 1 tablet by mouth every Sunday, Sunday, and Sunday. - lidocaine (LIDODERM) 5 % Apply 1 patch as directed every 24 hours. Remove after 12 hours. - mometasone-formoterol (DULERA) 50-5 mcg/actuation HFA aerosol inhaler Inhale 1 puff as instructed two times a day. Rinse mouth out after use. - Lancets Test blood sugar(s) once times daily. Dx: Type 2 DM - Controlled E11.9 Insulin: No - blood sugar diagnostic (BLOOD GLUCOSE TEST) test strip Test blood sugar(s) one time daily. Dx: Type 2 DM - Controlled E11.9 Insulin: No. Uses True Metrix test strips. - metFORMIN (GLUCOPHAGE) 500 mg tablet Take 2 tablets by mouth two times a day with meals. Take one additional 500 mg tab with breakfast or lunch until BS less than 250 - loratadine (CLARITIN) 10 mg tablet Take 1 tablet by mouth once daily. - glimepiride (AMARYL) 4 mg tablet Take 1 tablet by mouth daily with breakfast. Dose change, take one daily - montelukast (SINGULAIR) 10 mg tablet Take 1 tablet by mouth daily at bedtime. - QUEtiapine (SEROQUEL) 25 mg tablet Take 75 mg by mouth daily at bedtime. - lamoTRIgine (LAMICTAL) 200 mg tablet Take 1 tablet by mouth two times a day. - diphenhydrAMINE (BENADRYL) 25 mg capsule Take 1 capsule by mouth every 6 hours as needed for itching/rash. - glucose 4 gram chewable tablet Take 4 tablets by mouth as needed for low blood sugar. - Albuterol Sulfate 1.25 mg/3 mL nebulizer solution Use 1 Ampule via nebulizer every 4 hours as needed for wheezing/shortness of breath. - ARIPiprazole (ABILIFY) 5 mg tablet Take 1 tablet by mouth once daily. - LORazepam (ATIVAN) 1 mg tablet Take 1 tablet by mouth twice daily. As needed. - Nebulizer NEBULIZER and Supplies FOR HOME USE. DX: J45.40 - citalopram (CELEXA) 40 mg tablet Take 40 mg by mouth once daily. [facility] Problem List As Of Date 06/16/2025 Noted Resolved Asthma [J45.909] Allergic rhinitis [J30.9] Migraine without aura [G43.009] 03/29/2006 Supervision of other normal [Z34.80] 2006 12/12/2011 Supervision of other high-risk [O09.8*09/26/2006 12/12/2011 Personal history of pre-term labor [Z87.51] 11/07/2006 03/11/2018 LGSIL on Pap smear [R87.612] 12/26/2011 Mild dysplasia of cervix [N87.0] 12/26/2011 03/11/2018 Moderate depressed bipolar I disorder (HCC) [F3*12/26/2011 Chronic radicular low back pain [M54.16, G89.29]07/17/2012 Lumbar spondylosis [M47.816] 02/17/2013 DDD (degenerative disc disease), lumbar [M51.36*02/17/2013 Hip tendonitis [M76.899] 12/15/2013 03/11/2018 Right hip pain [M25.551] 12/15/2013 03/11/2018 Diabete (more content not included)...[facility]09-16-[facility] Telephone encounter Note* Telephone Encounter - Tanya Angelo - 06/02/2025 8:55 AM EDT Prescription Refill Information The patient has been identified by name and date of : Yes Caregiver verified no other encounters exist for this prescription request: Yes Caregiver confirmed with patient/requestor that no other refills are due, in the near future, with this provider at this time: Yes The last office visit in the department: 05-12-25 Does the patient have a future office visit with this provider/department: Yes Requested Prescriptions Pending Prescriptions Disp Refills albuterol HFA (VENTOLIN HFA) 90 mcg/actuation inhaler 18 g 11 Sig: Inhale 2 puffs as instructed every 4 hours as needed. cyclobenzaprine (FLEXERIL) 10 mg tablet 30 tablet 2 Sig: Take 1 tablet by mouth three times a day as needed for muscle spasm. May make drowsy Tanya Salinas [facility] June 02, 2025 8:56 AM [facility]09-16-2025 Miscellaneous Notes* Telephone Encounter - Tanya Angelo - 06/02/2025 8:55 AM EDT Prescription Refill Information The patient has been identified by name and date of : Yes Caregiver verified no other encounters exist for this prescription request: Yes Caregiver confirmed with patient/requestor that no other refills are due, in the near future, with this provider at this time: Yes The last office visit in the department: 05-12-25 Does the patient have a future office visit with this provider/department: Yes Requested Prescriptions Pending Prescriptions Disp Refills albuterol HFA (VENTOLIN HFA) 90 mcg/actuation inhaler 18 g 11 Sig: Inhale 2 puffs as instructed every 4 hours as needed. cyclobenzaprine (FLEXERIL) 10 mg tablet 30 tablet 2 Sig: Take 1 tablet by mouth three times a day as needed for muscle spasm. May make drowsy [facility] 8[facility]56 AM documented in this encounterDay[facility]09-[facility] Telephone encounter Note * Telephone Encounter - Rodri Chauhan MD - 05/29/2025 7:35 PM EDT The following approved medication requests have been transmitted electronically. Requested Prescriptions Pending Prescriptions Disp Refills albuterol HFA (VENTOLIN HFA) 90 mcg/actuation inhaler 18 g 11 Sig: Inhale 2 puffs as instructed every 4 hours as needed. cyclobenzaprine (FLEXERIL) 10 mg tablet 30 tablet 2 Sig: Take 1 tablet by mouth three times a day as needed for muscle spasm. May make drowsy Rodri Chauhan MD [facility]09-12-2025 Miscellaneous Notes* Telephone Encounter - Rodri Chauhan MD - 05/29/2025 7:35 PM EDT The following approved medication requests have been transmitted electronically. Requested Prescriptions Pending Prescriptions Disp Refills albuterol HFA (VENTOLIN HFA) 90 mcg/actuation inhaler 18 g 11 Sig: Inhale 2 puffs as instructed every 4 hours as needed. cyclobenzaprine (FLEXERIL) 10 mg tablet 30 tablet 2 Sig: Take 1 tablet by mouth three times a day as needed for muscle spasm. May make drowsy Rodri Chauhan MD * Telephone Encounter - Tanya Angelo - 05/29/2025 9:02 AM EDT Prescription Refill Information The patient has been identified by name and date of : Yes Caregiver verified no other encounters exist for this prescription request: Yes Caregiver confirmed with patient/requestor that no other refills are due, in the near future, with this provider at this time: Yes The last office visit in the department: 05-12-25 Does the patient have a future office visit with this provider/department: Yes Requested Prescriptions Pending Prescriptions Disp Refills albuterol HFA (VENTOLIN HFA) 90 mcg/actuation inhaler 18 g 11 Sig: Inhale 2 puffs as instructed every 4 hours as needed. cyclobenzaprine (FLEXERIL) 10 mg tablet 30 tablet 2 Sig: Take 1 tablet by mouth three times a day as needed for muscle spasm. May make drowsy Tanya Rodrigues May 29, 2025 9:03 AM documented in this encounterDayton [facility]09-12-2025 Telephone encounter Note * Telephone Encounter - Tanya Angelo - 05/29/2025 9:02 AM EDT Prescription Refill Information The patient has been identified by name and date of : Yes Caregiver verified no other encounters exist for this prescription request: Yes Caregiver confirmed with patient/requestor that no other refills are due, in the near future, with this provider at this time: Yes The last office visit in the department: 05-12-25 Does the patient have a future office visit with this provider/department: Yes Requested Prescriptions Pending Prescriptions Disp Refills albuterol HFA (VENTOLIN HFA) 90 mcg/actuation inhaler 18 g 11 Sig: Inhale 2 puffs as instructed every 4 hours as needed. cyclobenzaprine (FLEXERIL) 10 mg tablet 30 tablet 2 Sig: Take 1 tablet by mouth three times a day as needed for muscle spasm. May make drowsy Tanya Rodrigues May 29, 2025 9:03 AM [facility]09-10-2025 Telephone encounter Note* Telephone Encounter - Rodri Chauhan MD - 05/27/2025 3:51 PM EDT The following approved medication requests have been transmitted electronically. Requested Prescriptions Pending Prescriptions Disp Refills topiramate (TOPAMAX) 100 mg tablet 60 tablet 11 Sig: Take 1 tablet by mouth two times a day. lansoprazole (PREVACID) 30 mg capsule 30 capsule 11 Sig: Take 1 capsule by mouth daily before breakfast. Rodri Chauhan MD [facility]09-10-2025 Miscellaneous Notes* Telephone Encounter - Rodri Chauhan MD - 05/27/2025 3:51 PM EDT The following approved medication requests have been transmitted electronically. Requested Prescriptions Pending Prescriptions Disp Refills topiramate (TOPAMAX) 100 mg tablet 60 tablet 11 Sig: Take 1 tablet by mouth two times a day. lansoprazole (PREVACID) 30 mg capsule 30 capsule 11 Sig: Take 1 capsule by mouth daily before breakfast. Rodri Chauhan MD * Telephone Encounter - Nuzhat Montes RN - 05/27/2025 9:22 AM EDT The patient has been identified by name and date of : Yes Caregiver verified no other encounters exist for this prescription request: Yes Caregiver confirmed with patient/requestor that no other refills are due, in the near future, with this provider at this time: Yes The last office visit in the department: 05/12/2025 Does the patient have a future office visit with this provider/department: Yes 08/17/2025 Requested Prescriptions Pending Prescriptions Disp Refills topiramate (TOPAMAX) 100 mg tablet 60 tablet 11 Sig: Take 1 tablet by mouth two times a day. lansoprazole (PREVACID) 30 mg capsule 30 capsule 11 Sig: Take 1 capsule by mouth daily before breakfast. Nuzhat Montes RN May 27, 2025 9:22 AM documented in this encounterDayton [facility]09-10-2025 Telephone encounter Note * Telephone Encounter - Nuzhat Montes RN - 05/27/2025 9:22 AM EDT The patient has been identified by name and date of : Yes Caregiver verified no other encounters exist for this prescription request: Yes Caregiver confirmed with patient/requestor that no other refills are due, in the near future, with this provider at this time: Yes The last office visit in the department: 05/12/2025 Does the patient have a future office visit with this provider/department: Yes 08/17/2025 Requested Prescriptions Pending Prescriptions Disp Refills topiramate (TOPAMAX) 100 mg tablet 60 tablet 11 Sig: Take 1 tablet by mouth two times a day. lansoprazole (PREVACID) 30 mg capsule 30 capsule 11 Sig: Take 1 capsule by mouth daily before breakfast. Nuzhat Montes RN May 27, 2025 9:22 AM [facility]09-03-2025 Telephone encounter Note* Telephone Encounter - Onofre Yoon MD - 05/20/2025 5:38 PM EDT The following approved medication requests have been transmitted electronically. Requested Prescriptions Signed Prescriptions Disp Refills HYDROcodone-acetaminophen (NORCO) 5-325 mg per tablet 28 tablet 0 Sig: Take 1-2 tablets by mouth every 6 hours as needed for pain for up to 7 days. Authorizing Provider: ONOFRE YOON MD [facility]09-03-2025 Miscellaneous Notes* Telephone Encounter - Onofre Yoon MD - 05/20/2025 5:38 PM EDT The following approved medication requests have been transmitted electronically. Requested Prescriptions Signed Prescriptions Disp Refills HYDROcodone-acetaminophen (NORCO) 5-325 mg per tablet 28 tablet 0 Sig: Take 1-2 tablets by mouth every 6 hours as needed for pain for up to 7 days. Authorizing Provider: ONOFRE YOON MD * Telephone Encounter - Sherie Lazcano - 05/20/2025 12:16 PM EDT Patient calling to check status of refill. Patient would like a return call when the medication is called to pharmacy. * Telephone Encounter - Vandana Mathias LPN - 05/19/2025 3:12 PM EDT Patient has been identified by name and date of : Yes Patient phones for refill(s): Requested Prescriptions Pending Prescriptions Disp Refills HYDROcodone-acetaminophen (NORCO) 5-325 mg per tablet 28 tablet 0 Sig: Take 1-2 tablets by mouth every 6 hours as needed for pain for up to 7 days. Date of last office visit in primary care: 05/12/2025 Date of next office visit in primary care: 05/19/2025 Please advise. Thank you. Vandana Mathias LPN. documented in this encounterDayton [facility]09-03-2025 Telephone encounter Note * Telephone Encounter - Sherie Lazcano - 05/20/2025 12:16 PM EDT Patient calling to check status of refill. Patient would like a return call when the medication is called to pharmacy. [facility]09-02-2025 Telephone encounter Note* Telephone Encounter - Vandana Mathias LPN - 05/19/2025 3:12 PM EDT Patient has been identified by name and date of : Yes Patient phones for refill(s): Requested Prescriptions Pending Prescriptions Disp Refills HYDROcodone-acetaminophen (NORCO) 5-325 mg per tablet 28 tablet 0 Sig: Take 1-2 tablets by mouth every 6 hours as needed for pain for up to 7 days. Date of last office visit in primary care: 05/12/2025 Date of next office visit in primary care: 05/19/2025 Please advise. Thank you. Vandana Mathias LPN. [facility]09-02-2025 Telephone encounter Note* Telephone Encounter - Tanya Angelo - 05/19/2025 9:35 AM EDT Prescription Refill Information The patient has been identified by name and date of : Yes Caregiver verified no other encounters exist for this prescription request: Yes Caregiver confirmed with patient/requestor that no other refills are due, in the near future, with this provider at this time: Yes The last office visit in the department: 05-12-25 Does the patient have a future office visit with this provider/department: Yes Requested Prescriptions Pending Prescriptions Disp Refills pramipexole (MIRAPEX) 1.5 mg tablet 30 tablet 11 Sig: Take 1 tablet by mouth daily at bedtime. Tanya Rodrigues May 19, 2025 9:36 AM [facility]09-02-2025 Miscellaneous Notes* Telephone Encounter - Tanya Angelo - 05/19/2025 9:35 AM EDT Prescription Refill Information The patient has been identified by name and date of : Yes Caregiver verified no other encounters exist for this prescription request: Yes Caregiver confirmed with patient/requestor that no other refills are due, in the near future, with this provider at this time: Yes The last office visit in the department: 05-12-25 Does the patient have a future office visit with this provider/department: Yes Requested Prescriptions Pending Prescriptions Disp Refills pramipexole (MIRAPEX) 1.5 mg tablet 30 tablet 11 Sig: Take 1 tablet by mouth daily at bedtime. Tanya Rodrigues May 19, 2025 9:36 AM documented in this encounterDayton Children'[facility]08-26-2025 History of Present illness Narrative* Johnson Rm, MARIJA.SENIOR SHAREPOINT ARCHITECT - 05/12/2025 3:40 PM EDT Subjective Patient ID: Nanci is a 44 year old female who presents for F/U 3 Month. HPI The patient is a 44-year-old female with T2DM, chronic low back pain, and anxiety disorder, presenting for evaluation of a severe migraine and refill of sumatriptan. Migraine: - Migraine today. - Out of Imitrex, DDM did not transfer prescription. Grief: - Nanci Rodriguez' mother on 06/09 from aggressive non-small cell lung cancer. - Experiencing significant grief; feels lost without her. - Denies depression; maintains appetite and hydration. - Has a supportive boyfriend and two grown children (ages 18 and 25) living at home. - Considering grief counseling but hesitant due to past negative experiences with counseling. - Family history of lung cancer; uncle also from small cell lung cancer. Anxiety: - History of anxiety, currently managed with medication. - Prefers to stay home due to anxiety. - Hesitant about group counseling due to anxiety. Chronic Back Pain: - Severe back pain, sometimes unable to get out of bed. - Taking hydrocodone 5 mg, 1-2 tablets every 6 hours, usually twice a day; reports inadequate pain relief. - Also taking Celebrex 400 mg daily and Flexeril. - Recent urine test confirmed adherence to pain medication. DM/Weight Loss: - Lost 35 lbs in the past 3 months through physical therapy, walking, and medication. - Current weight is 316 lbs, down from 365-370 lbs. - Taking Trulicity 3 mg weekly; reports no side effects. - A1c improved from 10.7% to 6.6% over 1.5 years. - Home blood glucose readings are no higher than 150 mg/dL. - Not interested in bariatric surgery, preferring to continue with current weight loss methods. - Believes she may be entering menopause due to recent changes in menstrual cycle. Smoking Cessation: - Smoking history of 5-6 years, currently smoking half a pack per day. - Recently resumed smoking after mother's passing. - Family has agreed to quit smoking together. - Working on reducing smoking with the goal of quitting. DIABETES MELLITUS: Notes well controlled DM. Without report of excessive thirst or increased frequency of urination, chest pain or dyspnea , numbness, tingling or pain in extremities, new or unusual visual symptoms, low sugar/hypoglycemic reactions, weight loss/gain, lightheadedness/dizziness, and bowel changes/loose stools. Patient's last HgA1C was Hemoglobin A1C (%) Date Value 04/28/2025 6.6 01/20/2025 8.8 02/02/2021 11.2 01/03/2021 12.6 ) ROS Constitutional: (+) weight loss Head: (+) migraine headache Eyes: (+) vision change Gastrointestinal: (-) nausea, (-) vomiting, (-) abdominal pain Genitourinary: (+) light menstrual flow Musculoskeletal: (+) back pain Psychiatric: (+) anxiety, (+) grief, (-) depressed mood Objective BP 138/82 Pulse 98 Resp 16 Wt (!) 154.5 kg (340 lb 9.8 oz) LMP 10/13/2024 (Exact Date) SpO2 98% BMI 61.34 kg/m Physical Exam Vitals and nursing note reviewed. Constitutional: Appearance: Normal appearance. HENT: Head: Normocephalic and atraumatic. Eyes: Conjunctiva/sclera: Conjunctivae normal. Cardiovascular: Rate and Rhythm: Normal rate. Pulmonary: Effort: Pulmonary effort is normal. Musculoskeletal: Lumbar back: Tenderness present. Decreased range of motion. Comments: tenderness across low back Neurological: General: No focal deficit present. Mental Status: She is alert and oriented to person, place, and time. 1. Type 2 diabetes mellitus with other skin ulcer, without long-term current use of insulin ([facility]) (E11.622) 2. Diabetes mellitus type 2, controlled, without complications ([facility]) (E11.9) 3. Uncontrolled type 2 diabetes mellitus with hyperglycemia ([facility]) (E11.65) - HbA1c improved from 10.7% to 6.6% over 1.5 years; home glucose readings consistently <150 mg/dL. - Continue Trulicity 3 mg weekly; tolerating well without GI side effects. - Maintain current regimen; no dose increase at this time. A1c urine albumin/creatinine in 3 mos 4. Screening for diabetic retinopathy (Z13.5) - Advised patient to schedule eye exam due to changes in vision. 5. Screening for depression (Z13.31) 6. Encounter for screening examination for other mental health and behavioral disorders (Z13.39) 7. Encounter for immunization (Z23) - Discussed HPV, pneumonia, and influenza vaccines; patient deferred to next visit. 8. Moderate depressed bipolar I disorder ([facility]) (F31.32) Stable on current treatments 9. 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 Chronic midline low back pain, unspecified whether sciatica present (M54.50) 11. Radiculopathy of lumbar region (M54.16) 12. Chronic midline low back pain with bilateral sciatica (M54.41) - Chronic back pain with radiculopathy; current regimen includes hydrocodone 5 mg (2 tablets every 6 hours), Celebrex 400 mg daily, and Flexeril. - Patient reports inadequate pain control; hydrocodone refill sent. - Celebrex refill sent. 13. Migraine without aura and without status migrainosus, not intractable (G43.009) - Patient reports severe migraine and has been without Imitrex for several months. - Imitrex refill sent. 14. Grief (F43.21) - Recent loss of mother; patient expresses feeling lost but not depressed. - Discussed grief counseling and support groups; hesitant due to previous negative experiences and anxiety. 15. Obesity, Class III, BMI 40-49.9 (morbid obesity) ([facility]) (E66.813) - Significant weight loss (35 lbs) over 3 months; proud of progress and motivated to continue. - Encouraged continuation of current weight loss efforts. Continue with Trulicity at dose unchanged as it has been very effective and without side effects for her 16. Nicotine dependence, cigarettes, uncomplicated (F17.210) - has reduced smoking to half a pack per day; family has agreed to quit smoking together. - Encouraged continued smoking cessation efforts. 3 mo.follow up Johnson Rm APRN.SENIOR SHAREPOINT ARCHITECT 6 mo follow up MD Johnson Quiñonez APRN.CNS Medical Decision Making: Problems: Low: Acute, uncomplicated illness or injury Moderate: 2+ stable chronic illnesses Risk: Moderate: Drug management Medical Decision Making Level: 4 - Moderate documented in this encounterDay[facility] NoteHNO ID: [id number] Author: JOHNSON RM APRN.SENIOR SHAREPOINT ARCHITECT Service: ? Author Type: Nurse Specialist Type: Progress Notes Filed: 05/12/2025 17:13 Note Text: Subjective Patient ID: Nanci is a 44 year old female who presents for F/U 3 Month. HPI The patient is a 44-year-old female with T2DM, chronic low back pain, and anxiety disorder, presenting for evaluation of a severe migraine and refill of sumatriptan. Migraine: - Migraine today. - Out of Imitrex, DDM did not transfer prescription. Grief: - Nanci Rodriguez' mother on 06/09 from aggressive non-small cell lung cancer. - Experiencing significant grief; feels lost without her. - Denies depression; maintains appetite and hydration. - Has a supportive boyfriend and two grown children (ages 18 and 25) living at home. - Considering grief counseling but hesitant due to past negative experiences with counseling. - Family history of lung cancer; uncle also from small cell lung cancer. Anxiety: - History of anxiety, currently managed with medication. - Prefers to stay home due to anxiety. - Hesitant about group counseling due to anxiety. Chronic Back Pain: - Severe back pain, sometimes unable to get out of bed. - Taking hydrocodone 5 mg, 1-2 tablets every 6 hours, usually twice a day; reports inadequate pain relief. - Also taking Celebrex 400 mg daily and Flexeril. - Recent urine test confirmed adherence to pain medication. DM/Weight Loss: - Lost 35 lbs in the past 3 months through physical therapy, walking, and medication. - Current weight is 316 lbs, down from 365-370 lbs. - Taking Trulicity 3 mg weekly; reports no side effects. - A1c improved from 10.7% to 6.6% over 1.5 years. - Home blood glucose readings are no higher than 150 mg/dL. - Not interested in bariatric surgery, preferring to continue with current weight loss methods. - Believes she may be entering menopause due to recent changes in menstrual cycle. Smoking Cessation: - Smoking history of 5-6 years, currently smoking half a pack per day. - Recently resumed smoking after mother's passing. - Family has agreed to quit smoking together. - Working on reducing smoking with the goal of quitting. DIABETES MELLITUS: Notes well controlled DM. Without report of excessive thirst or increased frequency of urination, chest pain or dyspnea , numbness, tingling or pain in extremities, new or unusual visual symptoms, low sugar/hypoglycemic reactions, weight loss/gain, lightheadedness/dizziness, and bowel changes/loose stools. Patient's last HgA1C was Hemoglobin A1C (%) Date Value 04/28/2025 6.6 01/20/2025 8.8 02/02/2021 11.2 01/03/2021 12.6 ) ROS Constitutional: (+) weight loss Head: (+) migraine headache Eyes: (+) vision change Gastrointestinal: (-) nausea, (-) vomiting, (-) abdominal pain Genitourinary: (+) light menstrual flow Musculoskeletal: (+) back pain Psychiatric: (+) anxiety, (+) grief, (-) depressed mood Objective BP 138/82 Pulse 98 Resp 16 Wt (!) 154.5 kg (340 lb 9.8 oz) LMP 10/13/2024 (Exact Date) SpO2 98% BMI 61.34 kg/m? Physical Exam Vitals and nursing note reviewed. Constitutional: Appearance: Normal appearance. HENT: Head: Normocephalic and atraumatic. Eyes: Conjunctiva/sclera: Conjunctivae normal. Cardiovascular: Rate and Rhythm: Normal rate. Pulmonary: Effort: Pulmonary effort is normal. Musculoskeletal: Lumbar back: Tenderness present. Decreased range of motion. Comments: tenderness across low back Neurological: General: No focal deficit present. Mental Status: She is alert and oriented to person, place, and time. 1. Type 2 diabetes mellitus with other skin ulcer, without long-term current use of insulin ([facility]) (E11.622) 2. Diabetes mellitus type 2, controlled, without complications ([facility]) (E11.9) 3. Uncontrolled type 2 diabetes mellitus with hyperglycemia ([facility]) (E11.65) - HbA1c improved from 10.7% to 6.6% over 1.5 years; home glucose readings consistently <150 mg/dL. - Continue Trulicity 3 mg weekly; tolerating well without GI side effects. - Maintain current regimen; no dose increase at this time. A1c urine albumin/creatinine in 3 mos 4. Screening for diabetic retinopathy (Z13.5) - Advised patient to schedule eye exam due to changes in vision. 5. Screening for depression (Z13.31) 6. Encounter for screening examination for other mental health and behavioral disorders (Z13.39) 7. Encounter for immunization (Z23) - Discussed HPV, pneumonia, and influenza vaccines; patient deferred to next visit. 8. Moderate depressed bipolar I disorder ([facility]) (F31.32) Stable on current treatments 9. 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 Chronic midline low back pain, unspecified whether sciatica present (M54.50) 11. Radiculopathy of lumbar region (M54.16) 12. Chronic midline low back pain with bilateral sciatica (M54.41) - Chronic (more content not included)...[facility]08-26-2025 Telephone encounter Note* Telephone Encounter - Alize Manjarrez MA - 05/12/2025 9:02 AM EDT Patient aware has appointment today and not due for refill till tomorrow Alize Manjarrez MA [facility]08-26-2025 Miscellaneous Notes* Telephone Encounter - Alize Manjarrez MA - 05/12/2025 9:02 AM EDT Patient aware has appointment today and not due for refill till tomorrow Alize Manjarrez MA documented in this encounterDayton [facility]08-[facility]25 Telephone encounter Note * Telephone Encounter - Johnson Rm APRN.CNS - 05/12/2025 7:56 AM EDT Can be filled at appt today [facility]08-[facility] Miscellaneous Notes* Telephone Encounter - Johnson Rm APRN.CNS - 05/12/2025 7:56 AM EDT Can be filled at appt today * Telephone Encounter - Vandana Mathias LPN - 05/11/2025 7:13 PM EDT Patient has been identified by name and date of : Yes Patient phones for refill(s): Requested Prescriptions Pending Prescriptions Disp Refills HYDROcodone-acetaminophen (NORCO) 5-325 mg per tablet 28 tablet 0 Sig: Take 1-2 tablets by mouth every 6 hours as needed for pain for up to 7 days. Patient should start on May 13, 2025. Date of last office visit in primary care: 01/20/2025 Date of next office visit in primary care: 05/12/2025 Please advise. Thank you. Vandana Mathias LPN. documented in this encounter[address]25-2025 Telephone encounter Note * Telephone Encounter - Vandana Mathias LPN - 05/11/2025 7:13 PM EDT Patient has been identified by name and date of : Yes Patient phones for refill(s): Requested Prescriptions Pending Prescriptions Disp Refills HYDROcodone-acetaminophen (NORCO) 5-325 mg per tablet 28 tablet 0 Sig: Take 1-2 tablets by mouth every 6 hours as needed for pain for up to 7 days. Patient should start on May 13, 2025. Date of last office visit in primary care: 01/20/2025 Date of next office visit in primary care: 05/12/2025 Please advise. Thank you. Vandana Mathias LPN. [facility]08-20-2025 Telephone encounter Note* Telephone Encounter - Rodri Chauhan MD - 05/06/2025 6:28 PM EDT The following approved medication requests have been transmitted electronically. Requested Prescriptions Pending Prescriptions Disp Refills cyclobenzaprine (FLEXERIL) 10 mg tablet 30 tablet 2 Sig: Take 1 tablet by mouth three times a day as needed for muscle spasm. May make drowsy Rodri Chauhan MD [facility]08-20-2025 Miscellaneous Notes* Telephone Encounter - Rodri Chauhan MD - 05/06/2025 6:28 PM EDT The following approved medication requests have been transmitted electronically. Requested Prescriptions Pending Prescriptions Disp Refills cyclobenzaprine (FLEXERIL) 10 mg tablet 30 tablet 2 Sig: Take 1 tablet by mouth three times a day as needed for muscle spasm. May make drowsy Rodri Chauhan MD * Telephone Encounter - Nuzhat Montes RN - 05/06/2025 8:37 AM EDT The patient has been identified by name and date of : Yes Caregiver verified no other encounters exist for this prescription request: Yes Caregiver confirmed with patient/requestor that no other refills are due, in the near future, with this provider at this time: Yes The last office visit in the department: 01/20/2025 Does the patient have a future office visit with this provider/department: Yes 05/12/2025 Requested Prescriptions Pending Prescriptions Disp Refills cyclobenzaprine (FLEXERIL) 10 mg tablet 30 tablet 2 Sig: Take 1 tablet by mouth three times a day as needed for muscle spasm. May make drowsy Nuzhat Montes RN May 06, 2025 8:37 AM documented in this encounterDayton Children'[facility]08-20-2025 Progress note Author Sebas Lord [facility] Note Date/Time May 06, 2025 12 :50pm [facility] [address] [place] [id number] Progress Note - Wound Care 05/06/25 1247 MR#: [id number] Acct: [id number] Name: NANCI RODRIGUEZ Rep #:[id number] : 1980 44 From: Sebas BEST PCP: Dr. Rodri Chauhan MD Status:RE G R Location: History of Present Illness Date of Service: 05/06/25 Chief Complaint: Ulceration right posterior leg History of Wound: Ulceration right posterior leg Progress of Wound: Healed full-thickness right calf wound. Subjective Subjective Patient is a 44-year-old diabetic female presenting to wound care center today for follow-up evaluation of full-thickness wound to the posterior right calf. Patient has been compliant with her multilayer compression wraps that she does at home. Patient wants to report that her A1c is 6.6% and her blood sugar is 143 mg/dL. Patient is down in weight as well and is doing very well. She is very motivated to continue a more positive lifestyle as she most recently lost her mother and has made a promise to get her life improved. She denies any trauma. Denies constitutional symptoms. Other pedal complaints at this time. Objective Data Objective Data Vital Signs: Vital Signs Temp Pulse Resp BP 96.7 F L 101 H 16 169/91 H 05/06/25 09:46 05/06/25 09:46 05/06/25 09:46 05/06/25 09:46 Physical Exam Narrative Vascular: DP and PT pulse palpable to the right lower extremity. CFT is brisk. Skin temp gradient is warm to warm from proximal ankle to distal digits of the right lower extremity. No focal increase is appreciated. No erythema is noted. +1 pitting edema appreciated to the right lower extremity. Indurated tissue appreciated to the posterior right calf. Neurological: Light touch is intact. Protective station is diminished to the forefoot but reestablished at the midfoot and ankle. Dermatological: Evidence of fissuring due to body habitus to the posterior rightcalf with no evidence of full-thickness wounds. Previous full-thickness wounds are all healed. No drainage or concern for infection. Muscle skeletal: No pain to palpation to the right calf. No pain with calf compression. Debridement Note Debridement Note Post-Debridement Measurements and Additional Note: Post-Debridement Measurements/Treatment - Nurse 1 - General Ulcer Assessment Start: 05/06/25 09:46 Freq: Status: Active Protocol: [email or web address].SAY Activity Type Activity Date Activity User E-sign Co-sign Detail Recorded Client Recorded Date Recorded By Document 05/06/25 09:46 ML [id number] 05/06/25 09:56 ML 05/06/25 09:46 - Today's Visit Information Type of service Initial Visit Arrival Mode Walker Transfer Assistance None Patient Identification Verified (Name & Yes ) Patient Requires Transmission-Based No Precautions Vital Signs Temperature (97.8 F-99.1 F) 96.7 F L Temperature Source Temporal Pulse Rate (60-100) 101 H Pulse Location Monitor Respiratory Rate (12-18) 16 Respiratory rate source Observation Blood Pressure (90/60-120/80) 169/91 H Blood Pressure Mean (mm Hg) 117 Source Monitor Position Sitting Blood Pressure Location Right Forearm History Since Last Visit- (Skip if this is Patient's initial visit) Have you changed medications since your No last visit? Any new allergies or adverse reactions No Had a fall/change in ADL's that may No increase risk of falls Signs or symptoms of abuse and/or No neglect since last visit Have you been in the hospital since your No last visit? Has dressing in place as prescribed No Has compression in place as prescribed Yes Has offloadiing in place as prescribed N/A Experienced any changes in pain level or No management Pain Scale: 0-10 Numeric Is Patient Pain Free? Yes - Nurse 1 - General Ulcer Measurement Start: 05/06/25 09:46 Freq: Status: Active Protocol: Activity Type Activity Date Activity User E-sign Co-sign Detail Recorded Client Recorded Date Recorded By Document 05/06/25 09:46 ML [id number] 05/06/25 09:56 ML 05/06/25 09:46 Wound Center Nurse 1 Lower Limb Edema Present Yes Right Calf (cm) 65 Right Ankle (cm) 33 Assessment/Plan Assessment/Plan (1) Lymphedema, not elsewhere classified: CODE(S): I89.0 - Lymphedema, not elsewhere classified PLAN: Patient was examined and evaluated. All findings were discussed with the patient. All questions were answered to the patient's satisfaction. After exam the patient's previous full-thickness wound has continued to stay healed to the posterior right calf. Educated the patient that she needs to makesure that she is wearing her CircAid multilayer compression wraps at all times specially when standing and walking for long periods of time which she is understanding of. Patient will continue to monitor her blood sugar and continue strict blood sugarcontrol as her most recent A1c was 6.6% and blood sugar was 143 mg/dL. Patient will continue to monitor her bilateral legs as discussed. Patient will be discharged from the wound care center today. 05/06/25 1250 <Electronically signed by Sebas Lord DPM> Cosigner Signature (if applicable): CC: ~ Signed [facility] Work Phone: [phone] 985-321008-20-2025 Progress note [facility] [address] [place] [address] Progress Note - Wound Care 05/06/25 1247 MR#: [id number] Acct: [id number] Name: NANCI RODRIGUEZ Rep #:[id number] : 1980 44 From: Sebas BEST PCP: Dr. Rodri Chauhan MD Status:RE G RCR Location: History of Present Illness Date of Service: 05/06/25 Chief Complaint: Ulceration right posterior leg History of Wound: Ulceration right posterior leg Progress of Wound: Healed full-thickness right calf wound. Subjective Subjective Patient is a 44-year-old diabetic female presenting to wound care center today for follow-up evaluation of full-thickness wound to the posterior right calf. Patient has been compliant with her multilayer compression wraps that she does at home. Patient wants to report that her A1c is 6.6% and her blood sugar is 143 mg/dL. Patient is down in weight as well and is doing very well. She is very motivated to continue a more positive lifestyle as she most recently lost her mother and has made a promise to get her life improved. She denies any trauma. Denies constitutional symptoms. Other pedal complaints at this time. Objective Data Objective Data Vital Signs: Vital Signs Temp Pulse Resp BP 96.7 F L 101 H 16 169/91 H 05/06/25 09:46 05/06/25 09:46 05/06/25 09:46 05/06/25 09:46 Physical Exam Narrative Vascular: DP and PT pulse palpable to the right lower extremity. CFT is brisk. Skin temp gradient is warm to warm from proximal ankle to distal digits of the right lower extremity. No focal increase is appreciated. No erythema is noted. +1 pitting edema appreciated to the right lower extremity. Indurated tissue appreciated to the posterior right calf. Neurological: Light touch is intact. Protective station is diminished to the forefoot but reestablished at the midfoot and ankle. Dermatological: Evidence of fissuring due to body habitus to the posterior rightcalf with no evidence of full-thickness wounds. Previous full-thickness wounds are all healed. No drainage or concern for infection. Muscle skeletal: No pain to palpation to the right calf. No pain with calf compression. Debridement Note Debridement Note Post-Debridement Measurements and Additional Note: Post-Debridement Measurements/Treatment - Nurse 1 - General Ulcer Assessment Start: 05/06/25 09:46 Freq: Status: Active Protocol: EVGENYEXT Activity Type Activity Date Activity User E-sign Co-sign Detail Recorded Client Recorded Date Recorded By Document 05/06/25 09:46 ML [id number] 05/06/25 09:56 ML 05/06/25 09:46 - Today's Visit Information Type of service Initial Visit Arrival Mode Walker Transfer Assistance None Patient Identification Verified (Name & Yes ) Patient Requires Transmission-Based No Precautions Vital Signs Temperature (97.8 F-99.1 F) 96.7 F L Temperature Source Temporal Pulse Rate (60-100) 101 H Pulse Location Monitor Respiratory Rate (12-18) 16 Respiratory rate source Observation Blood Pressure (90/60-120/80) 169/91 H Blood Pressure Mean (mm Hg) 117 Source Monitor Position Sitting Blood Pressure Location Right Forearm History Since Last Visit- (Skip if this is Patient's initial visit) Have you changed medications since your No last visit? Any new allergies or adverse reactions No Had a fall/change in ADL's that may No increase risk of falls Signs or symptoms of abuse and/or No neglect since last visit Have you been in the hospital since your No last visit? Has dressing in place as prescribed No Has compression in place as prescribed Yes Has offloadiing in place as prescribed N/A Experienced any changes in pain level or No management Pain Scale: 0-10 Numeric Is Patient Pain Free? Yes WC - Nurse 1 - General Ulcer Measurement Start: 05/06/25 09:46 Freq: Status: Active Protocol: Activity Type Activity Date Activity User E-sign Co-sign Detail Recorded Client Recorded Date Recorded By Document 05/06/25 09:46 ML [id number] 05/06/25 09:56 ML 05/06/25 09:46 Wound Center Nurse 1 Lower Limb Edema Present Yes Right Calf (cm) 65 Right Ankle (cm) 33 Assessment/Plan Assessment/Plan (1) Lymphedema, not elsewhere classified: CODE(S): I89.0 - Lymphedema, not elsewhere classified PLAN: Patient was examined and evaluated. All findings were discussed with the patient. All questions were answered to the patient's satisfaction. After exam the patient's previous full-thickness wound has continued to stay healed to the posterior right calf. Educated the patient that she needs to makesure that she is wearing her CircAid multilayer compression wraps at all times specially when standing and walking for long periods of time which she is understanding of. Patient will continue to monitor her blood sugar and continue strict blood sugarcontrol as her mostrecent A1c was 6.6% and blood sugar was 143 mg/dL. Patient will continue to monitor her bilateral legs as discussed. Patient will be discharged from the wound care center today. 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 Once resulted, please advise patient on results. A1c still in process. Alycia Saeed MA documented [facility] encounterDay[facility] Telephone encounter Note * Telephone Encounter - Nuzhat Montes RN - 05/06/2025 8:37 AM EDT The patient has been identified by name and date of : Yes Caregiver verified no other encounters exist for this prescription request: Yes Caregiver confirmed with patient/requestor that no other refills are due, in the near future, with this provider at this time: Yes The last office visit in the department: 01/20/2025 Does the patient have a future office visit with this provider/department: Yes 05/12/2025 Requested Prescriptions Pending Prescriptions Disp Refills cyclobenzaprine (FLEXERIL) 10 mg tablet 30 tablet 2 Sig: Take 1 tablet by mouth three times a day as needed for muscle spasm. May make drowsy Nuzhat Montes RN May 06, 2025 8:37 AM [facility]08-18-2025 Telephone encounter Note* Telephone Encounter - Rodri Chauhan MD - 05/04/2025 7:30 PM EDT The following approved medication requests have been transmitted electronically. Requested Prescriptions Signed Prescriptions Disp Refills HYDROcodone-acetaminophen (NORCO) 5-325 mg per tablet 28 tablet 0 Sig: Take 1-2 tablets by mouth every 6 hours as needed for pain for up to 7 days. Patient should start on May 06, 2025. Authorizing Provider: RODRI CHAUHAN MD [facility]08-18-2025 Miscellaneous Notes* Telephone Encounter - Rodri Chauhan MD - 05/04/2025 7:30 PM EDT The following approved medication requests have been transmitted electronically. Requested Prescriptions Signed Prescriptions Disp Refills HYDROcodone-acetaminophen (NORCO) 5-325 mg per tablet 28 tablet 0 Sig: Take 1-2 tablets by mouth every 6 hours as needed for pain for up to 7 days. Patient should start on May 06, 2025. Authorizing Provider: RODRI CHAUHAN MD * Telephone Encounter - Alize Manjarrez MA - 05/04/2025 9:54 AM EDT Patient has been identified by name and date of : yes Patient phones for refill(s): Requested Prescriptions Pending Prescriptions Disp Refills HYDROcodone-acetaminophen (NORCO) 5-325 mg per tablet 28 tablet 0 Sig: Take 1-2 tablets by mouth every 6 hours as needed for pain for up to 7 days. Date of last office visit in primary care: 01/20/2025 Date of next office visit in primary care: 05/12/2025 Please advise. Thank you. Alize Manjarrez MA. documented in this encounterDay[facility] Telephone encounter Note * Telephone Encounter - Alize Manjarrez MA - 05/04/2025 9:54 AM EDT Patient has been identified by name and date of : yes Patient phones for refill(s): Requested Prescriptions Pending Prescriptions Disp Refills HYDROcodone-acetaminophen (NORCO) 5-325 mg per tablet 28 tablet 0 Sig: Take 1-2 tablets by mouth every 6 hours as needed for pain for up to 7 days. Date of last office visit in primary care: 01/20/2025 Date of next office visit in primary care: 05/12/2025 Please advise. Thank you. Alize Manjarrez MA. [facility]08-13-2025 NoteHNO ID: [id number] Author: NANCI COOK PT Service: ? Author Type: Physical Therapist Type: Progress Notes Filed: 04/29/2025 18:17 Note Text: Episode Visit Count: 4 Therapist That Will Accept/Oversee The Plan Of Care: Nanci Cook Start of Care Date: 02/24/25 Onset Date: 02/24/10 Plan of Care Certification Date: 04/29/25 Next Certification Due Date: 05/27/25 [facility]ATION [facility] SPORTS THERAPY PHYSICAL THERAPY PROGRESS REPORT PLAN OF CARE UPDATE: Assessment: Nanci L Rodriguez demonstrates improvements in sitting, rising from a chair, walking, and walking in the house. The patient has progressed toward goals. Patient continues to present with impairments in ADL's, gait, independence in exercise, joint mobility, overall function, patient reported outcome measures, range of motion, strength, and symptom management that interfere with standing, walking in the house, walking in the community, stair negotiation, bed mobility, sleeping . Current prognosis is Good due to: current objective clinical presentation . The patient will benefit from continued skilled therapy services to meet the updated goals for this plan of care as noted below. Goals for Episode of Care: established 02/24/25 Goals updated on 04/29/2025. Independent in home exercises. -- MET Patient will decrease pain to 1-2/10 with functional activities to allow patient to improve ambulation, transfers, and standing tolerance for ADLs. -- PROGRESSING Restore pain-free lumbar ROM to minimal to no limitation extension to allow for improved posture and reduced paraspinal muscle strain with standing/walking and transfers. -- PROGRESSING Stand / Walk 10-15 minutes without increased pain/symptoms. -- PROGRESSING Sleep through night without pain/symptoms. -- PROGRESSING Maintain proper sitting posture throughout session -- PROGRESSING Patient Goals: reduce LBP, get MRI approved by insurance -- PROGRESSING >1 rep of sit <> stand reps in 30 seconds with use of BUEs on arm rests -- Time Frame for Goals and Treatment : 05/27/25 Patient Goals: reduce LBP, get MRI approved by insurance. Sleep better and get my health better. Walk better. Planned Interventions, Frequency, and Duration: 1x/week, 4 weeks Total Number of Visits Planned: 4 Patient to be seen for Therapeutic exercise (22359), Neuromuscular re-education (90293), Manual therapy (26902), Therapeutic activities (43203), Self-nursing home management (34508), Gait Training (64055) PLAN FOR NEXT VISIT: GOLDY SUBJECTIVE: Pt. unfortubately lossed her mom a couple weeks ago. Pt. is able to walk short distances (to the store near her house) without an AD.. Patient Goals: reduce LBP, get MRI approved by insurance. Sleep better and get my health better. Walk better. Functional Limitations: standing, walking in the house, walking in the community, stair negotiation, bed mobility, sleeping Prior Level of Function: Independent without limitations Pain: Pain Pain Level: 8 Pain Location: Knee - Left Description: Aching Additional Pain Information : Location 2 Pain Level 2: 8 Pain Location 2: Back Description 2: Aching Post Treatment Pain Post Treatment Pain Level: 1 Post Treatment Pain Location: Low Back/Lumbar Spine - Left Post Treatment Pain Description: Aching PROMIS Scales 04/28/2025 04/02/2025 03/04/2025 Higher is Better Phys Func - T Score 33 (moderate dysfunction) 36 (moderate dysfunction) 36 (moderate dysfunction) Phys Func - Percentile 4 8 8 Self-Eff Symptom - T Score 32 (Low) 48 (Average) 51 (Average) Self-Eff Symptom - Percentile 4 42 54 T-Score and Percentile Interpretation T-scores: mean of general population = 50. 5 points is clinically meaningfully difference Percentiles provide an indication of how the patient's score ranks in relation to the general population. Higher percentile rankings indicate better function/quality of life. 50th percentile is the average of the general population and indicates half of respondents had a worse score. OBJECTIVE MEASURES WITH LEVEL OF FUNCTION: Lumbar Spine AROM Lumbar Flexion: Normal Lumbar Extension: Moderate limitation Lumbar R Side [address]: Normal Lumbar L Side [address]: Normal Lumbar R Side-Bend: Normal Lumbar L Side-Bend: Normal Lumbar R Rotation: Normal Lumbar L Rotation: Normal Functional Performance Test Results 30 Second Chair Stand Test: 12 reps TREATMENT: Therapeutic Exercise: 1: scifit stepper, seat 14, level 1, 1:1 throughout, subjective collected 5 min. 2: lumbar flexion, extension, SB each side, rotation each side, SG each side 1x each 3: step ups fwd 2x10 each side, 4 step 4: seated LAQ 2x12 each side 5: 30 sec sit <> stand test Skilled Intervention: Patient was educated in proper exercise technique and purpose for exercises. Skilled judgment was used in selection of appropriate interventions. Educated patient on rationale for performing exercises in regard (more content not included)...[facility]08-13-2025 History of Present illness Narrative* Nanci Cook, PT - 04/29/2025 5:51 PM EDT Images from the original note were not included. Episode Visit Count: 4 Therapist That Will Accept/Oversee The Plan Of Care: Nanci Cook Start of Care Date: 02/24/25 Onset Date: 02/24/10 Plan of Care Certification Date: 04/29/25 Next Certification Due Date: 05/27/25 REHABILITATION AND SPORTS THERAPY PHYSICAL THERAPY PROGRESS REPORT PLAN OF CARE UPDATE: Assessment: Nanci Rodriguez demonstrates improvements in sitting, rising from a chair, walking, and walking inthe house. The patient has progressed toward goals. Patient continues to present with impairments in ADL's, gait, independence in exercise, joint mobility, overall function, patient reported outcome measures, range of motion, strength, and symptom management that interfere with standing, walking inthe house, walking in the community, stair negotiation, bed mobility, sleeping . Current prognosis is Good due to: current objective clinical presentation . The patient will benefit from continued skilled therapy services to meet the updated goals for this plan of care as noted below. Goals for Episode of Care: established 02/24/25 Goals updated on 04/29/2025. Independent in home exercises. -- MET Patient will decrease pain to 1-2/10 with functional activities to allow patient to improve ambulation, transfers, and standing tolerance for ADLs. -- PROGRESSING Restore pain-free lumbar ROM to minimal to no limitation extension to allow for improved posture and reduced paraspinal muscle strain with standing/walking and transfers. -- PROGRESSING Stand / Walk 10-15 minutes without increased pain/symptoms. -- PROGRESSING Sleep through night without pain/symptoms. -- PROGRESSING Maintain proper sitting posture throughout session -- PROGRESSING Patient Goals: reduce LBP, get MRI approved by insurance -- PROGRESSING >1 rep of sit <> stand reps in 30 seconds with use of BUEs on arm rests -- Time Frame for Goals and Treatment : 05/27/25 Patient Goals: reduce LBP, get MRI approved by insurance. Sleep better and get my health better. Walk better. Planned Interventions, Frequency, and Duration: 1x/week, 4 weeks Total Number of Visits Planned: 4 Patient to be seen for Therapeutic exercise (67991), Neuromuscular re-education (01398), Manual therapy (37742), Therapeutic activities (38915), Self-nursing home management (23161), Gait Training (25936) PLAN FOR NEXT VISIT: DC SUBJECTIVE: Pt. unfortubately lossed her mom a couple weeks ago. Pt. is able to walk short distances (to the store near her house) without an AD.. Patient Goals: reduce LBP, get MRI approved by insurance. Sleep better and get my health better. Walk better. Functional Limitations: standing, walking in the house, walking in the community, stair negotiation, bed mobility, sleeping Prior Level of Function: Independent without limitations Pain: Pain Pain Level: 8 Pain Location: Knee - Left Description: Aching Additional Pain Information : Location 2 Pain Level 2: 8 Pain Location 2: Back Description 2: Aching Post Treatment Pain Post Treatment Pain Level: 1 Post Treatment Pain Location: Low Back/Lumbar Spine - Left Post Treatment Pain Description: Aching PROMIS Scales 04/28/2025 04/02/2025 03/04/2025 Higher is Better Phys Func - T Score 33 (moderate dysfunction) 36 (moderate dysfunction) 36 (moderate dysfunction) Phys Func - Percentile 4 8 8 Self-Eff Symptom - T Score 32 (Low) 48 (Average) 51 (Average) Self-Eff Symptom - Percentile 4 42 54 T-Score and Percentile Interpretation T-scores: mean of general population = 50. 5 points is clinically meaningfully difference Percentiles provide an indication of how the patient's score ranks in relation to the general population. Higher percentile rankings indicate better function/quality of life. 50th percentile is the average of the general population and indicates half of respondents had a worse score. OBJECTIVE MEASURES WITH LEVEL OF FUNCTION: Lumbar Spine AROM Lumbar Flexion: Normal Lumbar Extension: Moderate limitation Lumbar R Side [address]: Normal Lumbar L Side [address]: Normal Lumbar R Side-Bend: Normal Lumbar L Side-Bend: Normal Lumbar R Rotation: Normal Lumbar L Rotation: Normal Functional Performance Test Results 30 Second Chair Stand Test: 12 reps TREATMENT: Therapeutic Exercise: 1: scifit stepper, seat 14, level 1, 1:1 throughout, subjective collected 5 min. 2: lumbar flexion, extension, SB each side, rotation each side, SG each side 1x each 3: step ups fwd 2x10 each side, 4 step 4: seated LAQ 2x12 each side 5: 30 sec sit <> stand test Skilled Intervention: Patient was educated in proper exercise technique and purpose for exercises. Skilled judgment was used in selection of appropriate interventions. Educated patient on rationale for performing exercises in regards to increase ease of ADL and ROM and function . Billing Therapeutic Exercise Treatment Minutes: 28 Skilled Treatment Time Minutes (timed and untimed codes): 28 Total Session Time (minutes): 28 Session Start Time : 1747 Session Stop Time : 1815 Nanci Cook PT documented in this encounterDayton [facility]08-[facility]25 Telephone encounter Note * Telephone Encounter - Ashley Jarrett RN - 04/29/2025 10:13 AM EDT Loulou with [facility] called in asking about the Rx for the Pt's Iron. I let her know it had been sent in on 04/06/25 with 5 refills. She said she saw one that hadn't been linked. She said she was going to ask her pharmacist about it and would call back if they had issues with it. Ashley Jarrett RN [facility]08-13-2025 Miscellaneous Notes* Telephone Encounter - Ashley Jarrett RN - 04/29/2025 10:13 AM EDT Loulou with [facility] called in asking about the Rx for the Pt's Iron. I let her know it had been sent in on 04/06/25 with 5 refills. She said she saw one that hadn't been linked. She said she was going to ask her pharmacist about it and would call back if they had issues with it. Ashley Jarrett RN * Telephone Encounter - Rodri Chauhan MD - 04/29/2025 1:19 AM EDT The following approved medication requests have been transmitted electronically. Requested Prescriptions Signed Prescriptions Disp Refills HYDROcodone-acetaminophen (NORCO) 5-325 mg per tablet 28 tablet 0 Sig: Take 1-2 tablets by mouth every 6 hours as needed for pain for up to 7 days. Authorizing Provider: RODRI CHAUHAN MD * Telephone Encounter - Vandana Mathias LPN - 04/27/2025 3:35 PM EDT Patient has been identified by name and date of : Yes Patient phones for refill(s): Requested Prescriptions Pending Prescriptions Disp Refills HYDROcodone-acetaminophen (NORCO) 5-325 mg per tablet 28 tablet 0 Sig: Take 1-2 tablets by mouth every 6 hours as needed for pain for up to 7 days. Patient should start on April 29, 2025. Date of last office visit in primary care: 01/20/2025 Date of next office visit in primary care: 04/27/2025 Please advise. Thank you. Vandana Mathias LPN. documented in this encounterDayton [facility]08-13-2025 Telephone encounter Note * Telephone Encounter - Alycia Saeed MA - 04/29/2025 9:25 AM EDT Notified pt some labs are still in process. Once resulted, please advise patient on results. A1c still in process. Alycia Saeed MA [facility]08-13-2025 Telephone encounter Note* Telephone Encounter - Rodri Chauhan MD - 04/29/2025 1:19 AM EDT The following approved medication requests have been transmitted electronically. Requested Prescriptions Signed Prescriptions Disp Refills HYDROcodone-acetaminophen (NORCO) 5-325 mg per tablet 28 tablet 0 Sig: Take 1-2 tablets by mouth every 6 hours as needed for pain for up to 7 days. Authorizing Provider: RODRI CHAUHAN MD [facility]08-11-2025 Telephone encounter Note* Telephone Encounter - Vandana Mathias LPN - 04/27/2025 3:35 PM EDT Patient has been identified by name and date of : Yes Patient phones for refill(s): Requested Prescriptions Pending Prescriptions Disp Refills HYDROcodone-acetaminophen (NORCO) 5-325 mg per tablet 28 tablet 0 Sig: Take 1-2 tablets by mouth every 6 hours as needed for pain for up to 7 days. Patient should start on April 29, 2025. Date of last office visit in primary care: 01/20/2025 Date of next office visit in primary care: 04/27/2025 Please advise. Thank you. Vandana Mathias LPN. [facility]08-[facility]-2025 Telephone encounter Note* Telephone Encounter - Vandana Mathias LPN - 04/27/2025 2:54 PM EDT Duplicate request for ferrous sulfate 325mg. Vandana Mathias LPN [facility]08-11-2025 Miscellaneous Notes* Telephone Encounter - Vandana Mathias LPN - 04/27/2025 2:54 PM EDT Duplicate request for ferrous sulfate 325mg. Vandana Mathias LPN * Telephone Encounter - Deja Medina - 04/27/2025 8:31 AM EDT Patient has been identified by name and date of : Yes Pharmacy phones for refill(s): Requested Prescriptions Pending Prescriptions Disp Refills ferrous sulfate 325 mg (65 mg iron) tablet 15 tablet 5 Sig: Take 1 tablet by mouth every Sunday, Sunday, and Sunday. Date of last office visit in primary care: 01/20/2025 Date of next office visit in primary care: 05/12/2025 Please advise. Thank you. Deja Medina. documented in this encounterDayton Children'[facility] Hospital08-11-2025 Telephone encounter Note * Telephone Encounter - Deja Medina - 04/27/2025 8:31 AM EDT Patient has been identified by name and date of : Yes Pharmacy phones for refill(s): Requested Prescriptions Pending Prescriptions Disp Refills ferrous sulfate 325 mg (65 mg iron) tablet 15 tablet 5 Sig: Take 1 tablet by mouth every Sunday, Sunday, and Sunday. Date of last office visit in primary care: 01/20/2025 Date of next office visit in primary care: 05/12/2025 Please advise. Thank you. Deja Medina. [facility]08-06-2025 Telephone encounter Note* Telephone Encounter - Marla Marina MA - 04/22/2025 11:29 AM EDT Please review pt message. Labs completed 3 months ago Marla Marina MA [facility]08-06-2025 Miscellaneous Notes* Telephone Encounter - Marla Marina MA - 04/22/2025 11:29 AM EDT Please review pt message. Labs completed 3 months ago Marla Marina MA documented in this encounterDayton Children'S Hospital07-30-2025 Telephone encounter Note * Telephone Encounter - Zunilda Jaramillo APRN.CNP - 04/15/2025 1:37 PM EDT PDMP website checked and validated. All prescriptions have been APPROPRIATELY filled. No suspiciousactivity was identified. 04/15/2025 by Zunilda Jaramillo APRN.CNP [facility]07-30-2025 Miscellaneous Notes* Telephone Encounter - Zunilda Jaramillo APRN.CNP - 04/15/2025 1:37 PM EDT [facility] and validated. All prescriptions have been APPROPRIATELY filled. No suspiciousactivity was identified. 04/15/2025 by Zunilda Jaramillo APRN.NARENDRA * Telephone Encounter - Vandana Mathias LPN - 04/15/2025 11:49 AM EDT Patient has been identified by name and date of : Yes Patient phones for refill(s): Requested Prescriptions Pending Prescriptions Disp Refills HYDROcodone-acetaminophen (NORCO) 5-325 mg per tablet 28 tablet 0 Sig: Take 1-2 tablets by mouth every 6 hours as needed for pain for up to 7 days. Date of last office visit in primary care: 01/20/2025 Date of next office visit in primary care: 05/12/2025 Please advise. Thank you. Vandana Mathias LPN. documented in this encounterDayton Children'S Hospital07-30-2025 Telephone encounter Note * Telephone Encounter - Vandana Mathias LPN - 04/15/2025 11:49 AM EDT Patient has been identified by name and date of : Yes Patient phones for refill(s): Requested Prescriptions Pending Prescriptions Disp Refills HYDROcodone-acetaminophen (NORCO) 5-325 mg per tablet 28 tablet 0 Sig: Take 1-2 tablets by mouth every 6 hours as needed for pain for up to 7 days. Date of last office visit in primary care: 01/20/2025 Date of next office visit in primary care: 05/12/2025 Please advise. Thank you. Vandana Mathias LPN. [facility]07-29-[facility] Telephone encounter Note* Telephone Encounter - Luis Enrique Wiggins RN - 04/14/2025 9:57 AM EDT Pt reports her norco refill is due tomorrow. Pt aware she needs to complete a urine test before next appt on 05/12/25 and states she will do it within the next week. The patient has been identified by name and date of : Yes Caregiver verified no other encounters exist for this prescription request: Yes Caregiver confirmed with patient/requestor that no other refills are due, in the near future, with this provider at this time: Yes The last office visit in the department: 01/20/2025 Does the patient have a future office visit with this provider/department: Yes 05/12/2025 Requested Prescriptions Pending Prescriptions Disp Refills HYDROcodone-acetaminophen (NORCO) 5-325 mg per tablet 28 tablet 0 Sig: Take 1-2 tablets by mouth every 6 hours as needed for pain for up to 7 days. Luis Enrique Wiggins RN April 14, 2025 9:58 AM [facility]07-29-2025 Miscellaneous Notes* Telephone Encounter - Luis Enrique Wiggins RN - 04/14/2025 9:57 AM EDT Pt reports her norco refill is due tomorrow. Pt aware she needs to complete a urine test before next appt on 05/12/25 and states she will do it within the next week. The patient has been identified by name and date of : Yes Caregiver verified no other encounters exist for this prescription request: Yes Caregiver confirmed with patient/requestor that no other refills are due, in the near future, with this provider at this time: Yes The last office visit in the department: 01/20/2025 Does the patient have a future office visit with this provider/department: Yes 05/12/2025 Requested Prescriptions Pending Prescriptions Disp Refills HYDROcodone-acetaminophen (NORCO) 5-325 mg per tablet 28 tablet 0 Sig: Take 1-2 tablets by mouth every 6 hours as needed for pain for up to 7 days. Luis Enrique Wiggins RN April 14, 2025 9:58 AM documented in this encounterDayton Children'[facility] Hospital07-29-2025 Telephone encounter Note * Telephone Encounter - Alize Manjarrez MA - 04/14/2025 9:33 AM EDT Se other refill request Alize Manjarrez MA [address]29-2025 Miscellaneous Notes* Telephone Encounter - Alize Manjarrez MA - 04/14/2025 9:33 AM EDT Se other refill request Alize Manjarrez MA documented in this encounterDayton Children'[facility] Hospital07-29-2025 Telephone encounter Note * Telephone Encounter - Alize Manjarrez MA - 04/14/2025 8:44 AM EDT Patient has been identified by name and date of : yes Patient phones for refill(s): Requested Prescriptions Pending Prescriptions Disp Refills promethazine (PHENERGAN) 12.5 mg tablet 120 tablet 1 Sig: Take 1 tablet by mouth four times a day as needed for nausea/vomiting. Date of last office visit in primary care: 01/20/2025 Date of next office visit in primary care: 05/12/25 Please advise. Thank you. Alize Manjarrez MA. [facility]07-29-2025 Miscellaneous Notes* Telephone Encounter - Alize Manjarrez MA - 04/14/2025 8:44 AM EDT Patient has been identified by name and date of : yes Patient phones for refill(s): Requested Prescriptions Pending Prescriptions Disp Refills promethazine (PHENERGAN) 12.5 mg tablet 120 tablet 1 Sig: Take 1 tablet by mouth four times a day as needed for nausea/vomiting. Date of last office visit in primary care: 01/20/2025 Date of next office visit in primary care: 05/12/25 Please advise. Thank you. Alize Manjarrez MA. documented in this encounterDay[facility]25 Telephone encounter Note * Telephone Encounter - Alize Manjarrez MA - 04/14/2025 8:42 AM EDT Patient has been identified by name and date of : yes Patient phones for refill(s): Requested Prescriptions Pending Prescriptions Disp Refills benzonatate (TESSALON PERLE) 100 mg capsule 60 capsule 1 Sig: Take 1-2 capsules by mouth three times a day as needed. Date of last office visit in primary care: 01/20/2025 Date of next office visit in primary care: 05/12/25 Please advise. Thank you. Alize Manjarrez MA. [facility]07-29-2025 Miscellaneous Notes* Telephone Encounter - Alize Manjarrez MA - 04/14/2025 8:42 AM EDT Patient has been identified by name and date of : yes Patient phones for refill(s): Requested Prescriptions Pending Prescriptions Disp Refills benzonatate (TESSALON PERLE) 100 mg capsule 60 capsule 1 Sig: Take 1-2 capsules by mouth three times a day as needed. Date of last office visit in primary care: 01/20/2025 Date of next office visit in primary care: 05/12/25 Please advise. Thank you. Alize Manjarrez MA. documented in this encounterDayton [facility]07-[facility]25 Telephone encounter Note * Telephone Encounter - Karishma Segundo LPN - 04/09/2025 10:13 AM EDT Called the pharmacy and this has been filled 03/17/25,03/26/25 and 04/02/25. [facility]07-24-2025 Miscellaneous Notes* Telephone Encounter - Karishma Segundo LPN - 04/09/2025 10:13 AM EDT Called the pharmacy and this has been filled 03/17/25,03/26/25 and 04/02/25. * Telephone Encounter - [place] Qian Rodrigues - 04/09/2025 9:30 AM EDT Prescription Refill Information The patient has been identified by name and date of : Yes Caregiver verified no other encounters exist for this prescription request: Yes Caregiver confirmed with patient/requestor that no other refills are due, in the near future, with this provider at this time: Yes The last office visit in the department: 01/20/25 Does the patient have a future office visit with this provider/department: Yes Requested Prescriptions Pending Prescriptions Disp Refills cyclobenzaprine (FLEXERIL) 10 mg tablet 30 tablet 2 Sig: Take 1 tablet by mouth three times a day as needed for muscle spasm. May make drowsy Per pharmacy, patient has used all the refills from last script on 03/17/25. Qian Rodrigues April 09, 2025 9:31 AM documented in this encounterDayton Children'[facility]07-[facility]-2025 Telephone encounter Note * Telephone Encounter - [place] Qian Rodrigues - 04/09/2025 9:30 AM EDT Prescription Refill Information The patient has been identified by name and date of : Yes Caregiver verified no other encounters exist for this prescription request: Yes Caregiver confirmed with patient/requestor that no other refills are due, in the near future, with this provider at this time: Yes The last office visit in the department: 01/20/25 Does the patient have a future office visit with this provider/department: Yes Requested Prescriptions Pending Prescriptions Disp Refills cyclobenzaprine (FLEXERIL) 10 mg tablet 30 tablet 2 Sig: Take 1 tablet by mouth three times a day as needed for muscle spasm. May make drowsy Per pharmacy, patient has used all the refills from last script on 03/17/25. Qian Rodrigues April 09, 2025 9:31 AM [facility]07-23-2025 Telephone encounter Note* Telephone Encounter - Rodri Chauhan MD - 04/08/2025 7:17 PM EDT Also added urine tox screen to be done when here for appointment (needs done per protocol) [facility]07-23-2025 Miscellaneous Notes* Telephone Encounter - Rodri Chauhan MD - 04/08/2025 7:17 PM EDT Also added urine tox screen to be done when here for appointment (needs done per protocol) * Telephone Encounter - Rodri Chauhan MD - 04/08/2025 6:50 PM EDT I cannot do anything if insurance will not cover for a medication--she would have to pay out of pocket. Looks like pharmacist just does not want to fill RX. Her MMED is low She occasionally got a RX for lorazepam for 7 pills (like in February and January). Has not had RX since February. Okay RX, but would see why missing PT * Telephone Encounter - Helen Sullivan RN - 04/08/2025 6:14 PM EDT Pt calling in asking that prescription for [place] be sent to [facility] pharmacy now. * Telephone Encounter - Helen Sullivan RN - 04/08/2025 5:34 PM EDT Pt calling in stating her insurance will not cover her [place] and pt wanting to know what office taylor about that as she needs her medication. Pt states insurance won't cover it because it is being prescribed weekly and in high doses. Called [facility] and spoke with [facility] pharmacist. He states that pt's overdose score is too high and that is why her insurance will not cover it. He also feels pt is getting too often and is on too many different scripts. Stating the pt is going to need a new pharmacy as they are note going to fill it anymore. He asked if pt is seeing a paint mixer hand. It appears that a Dr. Colbert referred pt to pain management. Unsure if pt has followed up.Pt is supposed to be doing physical therapy but has cancelled almost all of her appts. She has goneto PT 3 times 02/24, 03/13 and 03/27. Pt is scheduled to go weekly. Will forward to provider for review. documented in this encounterDayton Children'[facility] Hospital07-23-2025 Telephone encounter Note * Telephone Encounter - Rodri Chauhan MD - 04/08/2025 6:50 PM EDT I cannot do anything if insurance will not cover for a medication--she would have to pay out of pocket. Looks like pharmacist just does not want to fill RX. Her MMED is low She occasionally got a RX for lorazepam for 7 pills (like in February and January). Has not had RX since February. Okay RX, but would see why missing PT [facility]07-23-2025 Telephone encounter Note* Telephone Encounter - Helen Sullivan RN - 04/08/2025 6:20 PM EDT Pt informed both verbally and via MyChart that there are too many msgs occurring as she is calling and sending a MyChart msg almost at the same time causing confusion. [facility]07-23-2025 Miscellaneous Notes* Telephone Encounter - Helen Sullivan RN - 04/08/2025 6:20 PM EDT Pt informed both verbally and via MyChart that there are too many msgs occurring as she is calling and sending a MyChart msg almost at the same time causing confusion. documented in this encounterDayton Children'[facility] Hospital07-23-2025 Telephone encounter Note * Telephone Encounter - Helen Sullivan RN - 04/08/2025 6:18 PM EDT Pt has appt on 05/12 at 340 pm. [facility]07-23-2025 Miscellaneous Notes* Telephone Encounter - Helen Sullivan RN - 04/08/2025 6:18 PM EDT Pt has appt on 05/12 at 340 pm. documented in this encounterDayton Children'S Hospital07-23-2025 Telephone encounter Note * Telephone Encounter - Helen Sullivan RN - 04/08/2025 6:14 PM EDT Pt calling in asking that prescription for [place] be sent to [facility]) pharmacy now. [address]23-2025 Telephone encounter Note* Telephone Encounter - Helen Sullivan RN - 04/08/2025 6:11 PM EDT Pt called in for another reason. Appears pt has refills on her Imitrex. She states she has not gotten it filled since October. She will move her meds all back to [facility] pharmacy. Pt will contact them to reach out to [facility] to transfer the script to them. [facility]07-23-2025 Miscellaneous Notes* Telephone Encounter - Helen Sullivan RN - 04/08/2025 6:11 PM EDT Pt called in for another reason. Appears pt has refills on her Imitrex. She states she has not gotten it filled since October. She will move her meds all back to [facility] pharmacy. Pt will contact them to reach out to [facility] to transfer the script to them. documented in this encounterDayton Children'S Hospital07-23-2025 Telephone encounter Note * Telephone Encounter - Helen Sullivan RN - 04/08/2025 6:06 PM EDT Pt called in for another reason and is notified new script was [facility] [place] [facility] [place] [facility]. [facility]07-23-2025 Miscellaneous Notes* Telephone Encounter - Helen Sullivan RN - 04/08/2025 6:06 PM EDT Pt called in for another reason and is notified new script was just sent to [facility] 04/[facility]. documented in this encounterDayton Children'[facility] Hospital07-23-2025 Telephone encounter Note * Telephone Encounter - Helen Sullivan RN - 04/08/2025 5:34 PM EDT Pt calling in stating her insurance will not cover her [place] and pt wanting to know what office taylor about that as she needs her medication. Pt states insurance won't cover it because it is being prescribed weekly and in high doses. [facility] and spoke with [facility] pharmacist. He states that pt's overdose score is too high and that is why her insurance will not cover it. He also feels pt is getting too often and is on too many different scripts. Stating the pt is going to need a new pharmacy as they are note going to fill it anymore. He asked if pt is seeing a paint mixer hand. It appears that a Dr. Colbert referred pt to pain management. Unsure if pt has followed up.Pt is supposed to be doing physical therapy but has cancelled almost all of her appts. She has goneto PT 3 times 02/24, 03/13 and 03/27. Pt is scheduled to go weekly. Will forward to provider for review. [facility]07-23-2025 Telephone encounter Note* Telephone Encounter - Vianney Elise RN - 04/08/2025 4:56 PM EDT Call placed to patient and notified of below. Vianney Elise RN [facility]07-23-2025 Miscellaneous Notes* Telephone Encounter - Vianney Elise RN - 04/08/2025 4:56 PM EDT Call placed to patient and notified of below. Vianney Elise RN * Telephone Encounter - Zunilda Jaramillo APRN.CNP - 04/08/2025 3:58 PM EDT Sent. Please let her know. * Telephone Encounter - Nan Alba LPN - 04/08/2025 1:12 PM EDT Patient calling back requesting status of refill of [place]. Nan Alba LPN * Telephone Encounter - Deja Medina - 04/08/2025 11:45 AM EDT Patient calling to check on the status of her Rx. She asked for a call when it is sent today. [phone] . TY * Telephone Encounter - Lizabeth Hurtado LPN - 04/07/2025 2:05 PM EDT Prescription Refill Information The patient has been identified by name and date of : Yes Caregiver verified no other encounters exist for this prescription request: Yes Caregiver confirmed with patient/requestor that no other refills are due, in the near future, with this provider at this time: Yes The last office visit in the department: 01/20/25 Does the patient have a future office visit with this provider/department: Yes Requested Prescriptions Pending Prescriptions Disp Refills HYDROcodone-acetaminophen (NORCO) 5-325 mg per tablet 28 tablet 0 Sig: Take 1-2 tablets by mouth every 6 hours as needed for pain for up to 7 days. Lizabeth Hurtado LPN April 07, 2025 2:05 PM documented in this encounterDayton Children'[facility] Hospital07-23-2025 Telephone encounter Note * Telephone Encounter - Zunilda Jaramillo APRN.CNP - 04/08/2025 3:58 PM EDT Sent. Please let her know. [facility]07-23-2025 Telephone encounter Note* Telephone Encounter - Aliez Manjarrez MA - 04/08/2025 2:34 PM EDT See GALILEA Manjarrez MA [facility]07-23-2025 Miscellaneous Notes* Telephone Encounter - Alize Manjarrez MA - 04/08/2025 2:34 PM EDT See TE Alize Manjarrez MA documented in this encounterDayton Children'S Hospital07-23-2025 Telephone encounter Note * Telephone Encounter - Nan Alba LPN - 04/08/2025 1:12 PM EDT Patient calling back requesting status of refill of [place]. Nan Alba LPN [facility]07-23-2025 Telephone encounter Note* Telephone Encounter - Deja Medina - 04/08/2025 11:45 AM EDT Patient calling to check on the status of her Rx. She asked for a call when it is sent today. [phone] . TY [facility]07-22-2025 Telephone encounter Note* Telephone Encounter - Lizabeth Hurtado LPN - 04/07/2025 2:05 PM EDT Prescription Refill Information The patient has been identified by name and date of : Yes Caregiver verified no other encounters exist for this prescription request: Yes Caregiver confirmed with patient/requestor that no other refills are due, in the near future, with this provider at this time: Yes The last office visit in the department: 01/20/25 Does the patient have a future office visit with this provider/department: Yes Requested Prescriptions Pending Prescriptions Disp Refills HYDROcodone-acetaminophen (NORCO) 5-325 mg per tablet 28 tablet 0 Sig: Take 1-2 tablets by mouth every 6 hours as needed for pain for up to 7 days. Lizabeth Hurtado LPN April 07, 2025 2:05 PM [facility]07-20-2025 Telephone encounter Note* Telephone Encounter - Rodri Chauhan MD - 04/05/2025 1:33 AM EDT The following approved medication requests have been transmitted electronically. Requested Prescriptions Signed Prescriptions Disp Refills furosemide (LASIX) 40 mg tablet 30 tablet 5 Sig: Take 1 tablet by mouth once daily. Authorizing Provider: RODRI CHAUHAN ferrous sulfate 325 mg (65 mg iron) tablet 15 tablet 5 Sig: Take 1 tablet by mouth every Sunday, Sunday, and Sunday. Authorizing Provider: RODRI CHAUAHN MD [facility]07-20-2025 Miscellaneous Notes* Telephone Encounter - Rodri Chauhan MD - 04/05/2025 1:33 AM EDT The following approved medication requests have been transmitted electronically. Requested Prescriptions Signed Prescriptions Disp Refills furosemide (LASIX) 40 mg tablet 30 tablet 5 Sig: Take 1 tablet by mouth once daily. Authorizing Provider: RODRI CHAUHAN ferrous sulfate 325 mg (65 mg iron) tablet 15 tablet 5 Sig: Take 1 tablet by mouth every Sunday, Sunday, and Sunday. Authorizing Provider: RODRI CHAUHAN MD * Telephone Encounter - Tanya Angelo - 04/03/2025 8:42 AM EDT Prescription Refill Information The patient has been identified by name and date of : Yes Caregiver verified no other encounters exist for this prescription request: Yes Caregiver confirmed with patient/requestor that no other refills are due, in the near future, with this provider at this time: Yes The last office visit in the department: 01-20-25 Does the patient have a future office visit with this provider/department: Yes Requested Prescriptions Pending Prescriptions Disp Refills furosemide (LASIX) 40 mg tablet 30 tablet 5 Sig: Take 1 tablet by mouth once daily. Tanyayanick Jimenezgiorgi Rodrigues April 03, 2025 8:43 AM documented in this encounterDayton [facility]07-[facility]-2025 Telephone encounter Note * Telephone Encounter - Tanya Angelo - 04/03/2025 8:42 AM EDT Prescription Refill Information The patient has been identified by name and date of : Yes Caregiver verified no other encounters exist for this prescription request: Yes Caregiver confirmed with patient/requestor that no other refills are due, in the near future, with this provider at this time: Yes The last office visit in the department: 01-20-25 Does the patient have a future office visit with this provider/department: Yes Requested Prescriptions Pending Prescriptions Disp Refills furosemide (LASIX) 40 mg tablet 30 tablet 5 Sig: Take 1 tablet by mouth once daily. Tanyayanick Jimenezgiorgi Rodrigues April 03, 2025 8:43 AM [facility]07-16-2025 Telephone encounter Note* Telephone Encounter - Rodri Chauhan MD - 04/01/2025 1:06 PM EDT The following approved medication requests have been transmitted electronically. Requested Prescriptions Signed Prescriptions Disp Refills HYDROcodone-acetaminophen (NORCO) 5-325 mg per tablet 28 tablet 0 Sig: Take 1-2 tablets by mouth every 6 hours as needed for pain for up to 7 days. Authorizing Provider: RODRI CHAUHAN MD [facility]07-16-2025 Miscellaneous Notes* Telephone Encounter - Rodri Chauhan MD - 04/01/2025 1:06 PM EDT The following approved medication requests have been transmitted electronically. Requested Prescriptions Signed Prescriptions Disp Refills HYDROcodone-acetaminophen (NORCO) 5-325 mg per tablet 28 tablet 0 Sig: Take 1-2 tablets by mouth every 6 hours as needed for pain for up to 7 days. Authorizing Provider: RODRI CHAUHAN MD * Telephone Encounter - Sharmaine Packer - 04/01/2025 11:44 AM EDT Patient is calling to check the status of this medication as she took her last pill yesterday, 03/31/2025 * Telephone Encounter - Sherie Lazcano - 03/31/2025 3:09 PM EDT Patient returning call and states that she uses [facility] as her pharmacy and she does not get prepacked medication from [facility] * Telephone Encounter - Helen Sullivan RN - 03/31/2025 2:35 PM EDT Attempted to contact pt for clarification. Pt originally sent a [employer] msg requestinhg refill on her [place] and put pharmacy as [facility]. Pt's preferred pharmacy is [facility]. It appears almost all of last [place] scripts have been sent to [facility]. On this same encounter,it appears [facility] pharmacy called as well and spoke with PSS and they requested 3 refills for pt including her [place].Then pt must have called in again and said she only needs a refill on the [place]. LM for pt to return call to clarify for sure 1) which pharmacy she wants her [place] to go to. 2) Is she getting pre-packaged meds from [facility]? If so, need to re- pend the orders for the Lasix and Iron again and route to provider as [facility] requested those. 3) Then need to notify [facility] pharmacy that pt is requesting to get her [place] from [facility]. 4) Per note below, pt states she needs her [place] today and requests a call back when sent to pharmacy. * Telephone Encounter - Qian Neely - 03/31/2025 1:44 PM EDT Prescription Refill Information The patient has been identified by name and date of : Yes Caregiver verified no other encounters exist for this prescription request: Yes Caregiver confirmed with patient/requestor that no other refills are due, in the near future, with this provider at this time: Yes The last office visit in the department: 01/20/25 Does the patient have a future office visit with this provider/department: Yes Requested Prescriptions Pending Prescriptions Disp Refills HYDROcodone-acetaminophen (NORCO) 5-325 mg per tablet 28 tablet 0 Sig: Take 1-2 tablets by mouth every 6 hours as needed for pain for up to 7 days. Per Patient, she is ONLY requesting NORCO and send to [facility], she is out of medication and needs today. Patient requested notification once sent. Qian Rodrigues March 31, 2025 1:46 PM * Telephone Encounter - Nilda Albert - 03/30/2025 1:39 PM EDT Prescription Refill Information The patient has been identified by name and date of : Yes Caregiver verified no other encounters exist for this prescription request: Yes Caregiver confirmed with patient/requestor that no other refills are due, in the near future, with this provider at this time: Yes The last office visit in the department: 01-20-25 Does the patient have a future office visit with this provider/department: Yes Requested Prescriptions Pending Prescriptions Disp Refills HYDROcodone-acetaminophen (NORCO) 5-325 mg per tablet 28 tablet 0 Sig: Take 1-2 tablets by mouth every 6 hours as needed for pain for up to 7 days. furosemide (LASIX) 40 mg tablet 30 tablet 5 Sig: Take 1 tablet by mouth once daily. ferrous sulfate 325 mg (65 mg iron) tablet 15 tablet 5 Sig: Take 1 tablet by mouth every Sunday, Sunday, and Sunday. Nilda Rodrigues March 30, 2025 1:39 PM documented in this encounterDayton [facility]07[facility]25 Telephone encounter Note * Telephone Encounter - Sharmaine Packer - 04/01/2025 11:44 AM EDT Patient is calling to check the status of this medication as she took her last pill yesterday, 03/31/2025 [facility]-16-2025 Telephone encounter Note* Telephone Encounter - Marla Marina MA - 04/01/2025 8:24 AM EDT See rx request Marla Marina MA [facility]07-16-2025 Miscellaneous Notes* Telephone Encounter - Marla Marina MA - 04/01/2025 8:24 AM EDT See rx request Marla Marina MA documented in this encounterDayton Children'S Hospital07-15-2025 Telephone encounter Note * Telephone Encounter - Sherie Lazcano - 03/31/2025 3:09 PM EDT Patient returning call and states that she uses [facility] as her pharmacy and she does not get prepacked medication from [facility] [place] [id number] Telephone encounter Note* Telephone Encounter - Helen Sullivan RN - 03/31/2025 2:35 PM EDT Attempted to contact pt for clarification. Pt originally sent a MyChart msg requestinhg refill on her [place] and put pharmacy [facility]. Pt's preferred pharmacy is [facility]. It appears almost all of last [place] scripts have been sent to [facility]. On this same encounter,it appears [facility] called as well and spoke with PSS and they requested 3 refills for pt including her [place].Then pt must have called in again and said she only needs a refill on the [place]. LM for pt to return call to clarify for sure 1) which pharmacy she wants her [place] to go to. 2) Is she getting pre-packaged meds from [facility]? If so, need to re- pend the orders for the Lasix and Iron again and route to provider as [facility] requested those. 3) Then need to notify [facility] pharmacy that pt is requesting to get her [place] from [facility]. 4) Per note below, pt states she needs her [place] today and requests a call back when sent to pharmacy. [facility]07-15-2025 Telephone encounter Note* Telephone Encounter - [place] Qian Rodrigues - 03/31/2025 1:44 PM EDT Prescription Refill Information The patient has been identified by name and date of : Yes Caregiver verified no other encounters exist for this prescription request: Yes Caregiver confirmed with patient/requestor that no other refills are due, in the near future, with this provider at this time: Yes The last office visit in the department: 01/20/25 Does the patient have a future office visit with this provider/department: Yes Requested Prescriptions Pending Prescriptions Disp Refills HYDROcodone-acetaminophen (NORCO) 5-325 mg per tablet 28 tablet 0 Sig: Take 1-2 tablets by mouth every 6 hours as needed for pain for up to 7 days. Per Patient, she is ONLY requesting NORCO and send to [facility], she is out of medication and needs today. Patient requested notification once sent. Qian Rodrigues March 31, 2025 1:46 PM T [facility]07-14-2025 Telephone encounter Note* Telephone Encounter - [facility] Nilda Rodrigues - 03/30/2025 1:39 PM EDT Prescription Refill Information The patient has been identified by name and date of : Yes Caregiver verified no other encounters exist for this prescription request: Yes Caregiver confirmed with patient/requestor that no other refills are due, in the near future, with this provider at this time: Yes The last office visit in the department: 01-20-25 Does the patient have a future office visit with this provider/department: Yes Requested Prescriptions Pending Prescriptions Disp Refills HYDROcodone-acetaminophen (NORCO) 5-325 mg per tablet 28 tablet 0 Sig: Take 1-2 tablets by mouth every 6 hours as needed for pain for up to 7 days. furosemide (LASIX) 40 mg tablet 30 tablet 5 Sig: Take 1 tablet by mouth once daily. ferrous sulfate 325 mg (65 mg iron) tablet 15 tablet 5 Sig: Take 1 tablet by mouth every Sunday, Sunday, and Sunday. Nilda Dudley [facility] March 30, 2025 1:39 PM [facility]07-11-2025 NoteHNO ID: [id number] Author: NANCI COOK, PT Service: ? Author Type: Physical Therapist Type: Progress Notes Filed: 03/27/2025 13:16 Note Text: Episode Visit Count: 3 Therapist That Will Accept/Oversee The Plan Of Care: Nanci Cook Start of Care Date: 02/24/25 Onset Date: 02/24/10 Plan of Care Certification Date: 02/24/25 Next Certification Due Date: 04/07/25 REHABILITATION AND SPORTS THERAPY PHYSICAL THERAPY TREATMENT NOTE ASSESSMENT: Nanci Rodriguez tolerated the session with decreased symptoms. She demonstrated difficulty with seated stepper due to L knee pain, instructed to only bend the knee within a pain free ROM. The patient will continue to benefit from ongoing skilled physical therapy to progress toward set goals. PLAN FOR NEXT VISIT: update HEP next visit. SUBJECTIVE: Pt. presents with rollator today. Rollator has a platform for items but not to sit. L knee hurts but the low back is doing ok. Compliant with HEP, has her boyfriend help her. Pain: Pain Pain Level: 8 Pain Location: Knee - Left Description: Aching Frequency: Continuous Additional Pain Information : Location 2 Pain Level 2: 0 Pain Location 2: Back Description 2: Aching Post Treatment Pain Post Treatment Pain Level: Better Post Treatment Pain Location: Low Back/Lumbar Spine - Left OBJECTIVE MEASURES WITH LEVEL OF FUNCTION: TREATMENT: Therapeutic Exercise: 1: scifit stepper, seat 14, level 1, 1:1 throughout, subjective collected 5 min. 2: sit <> stand 3x5 no UE support 3: seated PF/DF ankle pumps 3x20 4: seated LAQ 3x12 5: seated TA activation 4x10 Skilled Intervention: Patient was educated in proper exercise technique and purpose for exercises. Skilled judgment was used in selection of appropriate interventions. Provided written instruction for home exercise program to facilitate proper performance and compliance. Educated patient on rationale for performing exercises in regards to decreasing fatigue , including balance, increase ease of ADL, and ROM and function . Patient education as noted. Gait Training: Distance (feet): 80' 4x Gait Cues: upright posture, avoid leaning on the rollator Assistive Device: rollator Assist Level: SBA Skilled Intervention: Patient was provided stand by assist during pre-gait/gait training to prevent falls and insure safety. Facilitated proper gait cycle with the use of verbal, visual, and tactile cues for correction of gait deviations identified in the objective section above. Gait belt utilized during session for safety. Billing Therapeutic Exercise Treatment Minutes: 30 Gait Training Treatment Minutes: 10 Skilled Treatment Time Minutes (timed and untimed codes): 40 Total Session Time (minutes): 40 Session Start Time : 1230 Session Stop Time : 1310 Nanci Cook, [facility]07-11-2025 History of Present illness Narrative* Nanci Cook, PT - 03/27/2025 12:31 PM EDT Episode Visit Count: 3 Therapist That Will Accept/Oversee The Plan Of Care: Nanci Cook Start of Care Date: 02/24/25 Onset Date: 02/24/10 Plan of Care Certification Date: 02/24/25 Next Certification Due Date: 04/07/25 REHABILITATION AND SPORTS THERAPY PHYSICAL THERAPY TREATMENT NOTE ASSESSMENT: Nanci Rodriguez tolerated the session with decreased symptoms. She demonstrated difficulty with seated stepper due to L knee pain, instructed to only bend the knee within a pain free ROM. The patient will continue to benefit from ongoing skilled physical therapy to progress toward set goals. PLAN FOR NEXT VISIT: update HEP next visit. SUBJECTIVE: Pt. presents with rollator today. Rollator has a platform for items but not to sit. L knee hurts but the low back is doing ok. Compliant with HEP, has her boyfriend help her. Pain: Pain Pain Level: 8 Pain Location: Knee - Left Description: Aching Frequency: Continuous Additional Pain Information : Location 2 Pain Level 2: 0 Pain Location 2: Back Description 2: Aching Post Treatment Pain Post Treatment Pain Level: Better Post Treatment Pain Location: Low Back/Lumbar Spine - Left OBJECTIVE MEASURES WITH LEVEL OF FUNCTION: TREATMENT: Therapeutic Exercise: 1: scifit stepper, seat 14, level 1, 1:1 throughout, subjective collected 5 min. 2: sit <> stand 3x5 no UE support 3: seated PF/DF ankle pumps 3x20 4: seated LAQ 3x12 5: seated TA activation 4x10 Skilled Intervention: Patient was educated in proper exercise technique and purpose for exercises. Skilled judgment was used in selection of appropriate interventions. Provided written instruction for home exercise program to facilitate proper performance and compliance. Educated patient on rationale for performing exercises in regards to decreasing fatigue , includingbalance, increase ease of ADL, and ROM and function . Patient education as noted. Gait Training: Distance (feet): 80' 4x Gait Cues: upright posture, avoid leaning on the rollator Assistive Device: rollator Assist Level: SBA Skilled Intervention: Patient was provided stand by assist during pre-gait/gait training to preventfalls and insure safety. Facilitated proper gait cycle with the use of verbal, visual, and tactile cues for correction of gait deviations identified in the objective section above. Gait belt utilized during session for safety. Billing Therapeutic Exercise Treatment Minutes: 30 Gait Training Treatment Minutes: 10 Skilled Treatment Time Minutes (timed and untimed codes): 40 Total Session Time (minutes): 40 Session Start Time : 1230 Session Stop Time : 1310 Nanci Cook PT [facility] Telephone encounter Note * Telephone Encounter - Rodri Chauhan MD - 03/24/2025 1:20 PM EDT The following approved medication requests have been transmitted electronically. Requested Prescriptions Signed Prescriptions Disp Refills HYDROcodone-acetaminophen (NORCO) 5-325 mg per tablet 28 tablet 0 Sig: Take 1-2 tablets by mouth every 6 hours as needed for pain for up to 7 days. Authorizing Provider: RODRI CHAUHAN MD [facility]07-08-2025 Miscellaneous Notes* Telephone Encounter - Rodri Chauhan MD - 03/24/2025 1:20 PM EDT The following approved medication requests have been transmitted electronically. Requested Prescriptions Signed Prescriptions Disp Refills HYDROcodone-acetaminophen (NORCO) 5-325 mg per tablet 28 tablet 0 Sig: Take 1-2 tablets by mouth every 6 hours as needed for pain for up to 7 days. Authorizing Provider: RODRI CHAUHAN MD * Telephone Encounter - Sherie Lazcano - 03/24/2025 12:16 PM EDT Patient asking the status of her refill. Patient would like a return call when it is sent to her pharmacy. * Telephone Encounter - Vandana Mathias LPN - 03/23/2025 7:38 PM EDT Patient has been identified by name and date of : Yes Patient phones for refill(s): Requested Prescriptions Pending Prescriptions Disp Refills HYDROcodone-acetaminophen (NORCO) 5-325 mg per tablet 28 tablet 0 Sig: Take 1-2 tablets by mouth every 6 hours as needed for pain for up to 7 days. Date of last office visit in primary care: 01/20/2025 Date of next office visit in primary care: 05/12/2025 Please advise. Thank you. Vandana Mathias LPN. documented in this encounterDayton [facility]25 Telephone encounter Note * Telephone Encounter - Sherie Lazcano - 03/24/2025 12:16 PM EDT Patient asking the status of her refill. Patient would like a return call when it is sent to her pharmacy. [facility]07-07-2025 Telephone encounter Note* Telephone Encounter - Vandana Mathias LPN - 03/23/2025 7:38 PM EDT Patient has been identified by name and date of : Yes Patient phones for refill(s): Requested Prescriptions Pending Prescriptions Disp Refills HYDROcodone-acetaminophen (NORCO) 5-325 mg per tablet 28 tablet 0 Sig: Take 1-2 tablets by mouth every 6 hours as needed for pain for up to 7 days. Date of last office visit in primary care: 01/20/2025 Date of next office visit in primary care: 05/12/2025 Please advise. Thank you. Vandana Mathias LPN. [facility]07-01-2025 Telephone encounter Note* Telephone Encounter - Alize Manjarrez MA - 03/17/2025 11:14 AM EDT Patient was notified rx sent today 03/17 Alize Manjarrez MA [facility]07-01-2025 Miscellaneous Notes* Telephone Encounter - Alize Manjarrez MA - 03/17/2025 11:14 AM EDT Patient was notified rx sent today 03/17 Alize Manjarrez MA * Telephone Encounter - Nilda Albert - 03/10/2025 12:08 PM EDT Patient is checking on status of med requesta * Telephone Encounter - Alize Manjarrez MA - 03/09/2025 1:45 PM EDT Patient has been identified by name and date of : yes Patient phones for refill(s): Requested Prescriptions Pending Prescriptions Disp Refills HYDROcodone-acetaminophen (NORCO) 5-325 mg per tablet 28 tablet 0 Sig: Take 1-2 tablets by mouth every 6 hours as needed for pain for up to 7 days. Date of last office visit in primary care: 01/20/2025 Date of next office visit in primary care: 05/12/2025 Please advise. Thank you. Alize Manjarrez MA. documented in this encounterDayton [facility]25 Telephone encounter Note * Telephone Encounter - Tanya Angelo - 03/17/2025 8:57 AM EDT Prescription Refill Information The patient has been identified by name and date of : Yes Caregiver verified no other encounters exist for this prescription request: Yes Caregiver confirmed with patient/requestor that no other refills are due, in the near future, with this provider at this time: Yes The last office visit in the department: 01-20-25 Does the patient have a future office visit with this provider/department: Yes Requested Prescriptions Pending Prescriptions Disp Refills cyclobenzaprine (FLEXERIL) 10 mg tablet 30 tablet 2 Sig: Take 1 tablet by mouth three times a day as needed for muscle spasm. May make drowsy Tanya Jimenezgiorgi Rodrigues March 17, 2025 8:58 AM [facility]07-01-2025 Miscellaneous Notes* Telephone Encounter - Tanya Angelo - 03/17/2025 8:57 AM EDT Prescription Refill Information The patient has been identified by name and date of : Yes Caregiver verified no other encounters exist for this prescription request: Yes Caregiver confirmed with patient/requestor that no other refills are due, in the near future, with this provider at this time: Yes The last office visit in the department: 01-20-25 Does the patient have a future office visit with this provider/department: Yes Requested Prescriptions Pending Prescriptions Disp Refills cyclobenzaprine (FLEXERIL) 10 mg tablet 30 tablet 2 Sig: Take 1 tablet by mouth three times a day as needed for muscle spasm. May make drowsy Tanya Brad Rodrigues March 17, 2025 8:58 AM documented in this encounterDayton [facility]07-01-2025 Telephone encounter Note * Telephone Encounter - Rodri Chauhan MD - 03/17/2025 1:00 AM EDT The following approved medication requests have been transmitted electronically. Requested Prescriptions Signed Prescriptions Disp Refills HYDROcodone-acetaminophen (NORCO) 5-325 mg per tablet 28 tablet 0 Sig: Take 1-2 tablets by mouth every 6 hours as needed for pain for up to 7 days. Authorizing Provider: RODRI CHAUHAN MD [facility]07-01-2025 Miscellaneous Notes* Telephone Encounter - Rodri Chauhan MD - 03/17/2025 1:00 AM EDT The following approved medication requests have been transmitted electronically. Requested Prescriptions Signed Prescriptions Disp Refills HYDROcodone-acetaminophen (NORCO) 5-325 mg per tablet 28 tablet 0 Sig: Take 1-2 tablets by mouth every 6 hours as needed for pain for up to 7 days. Authorizing Provider: RODRI CHAUHAN MD * Telephone Encounter - Sylwia Marcial LPN - 03/16/2025 3:54 PM EDT Prescription Refill Information The patient has been identified by name and date of : Yes Caregiver verified no other encounters exist for this prescription request: Yes Caregiver confirmed with patient/requestor that no other refills are due, in the near future, with this provider at this time: Yes The last office visit in the department: 01/20/25 Does the patient have a future office visit with this provider/department: Yes 05/12/25 Requested Prescriptions Pending Prescriptions Disp Refills HYDROcodone-acetaminophen (NORCO) 5-325 mg per tablet 28 tablet 0 Sig: Take 1-2 tablets by mouth every 6 hours as needed for pain for up to 7 days. Sylwia Marcial LPN March 16, 2025 3:54 PM documented in this encounterDayton Children'[facility]06-30-2025 Telephone encounter Note * Telephone Encounter - Sylwia Marcial LPN - 03/16/2025 3:54 PM EDT Prescription Refill Information The patient has been identified by name and date of : Yes Caregiver verified no other encounters exist for this prescription request: Yes Caregiver confirmed with patient/requestor that no other refills are due, in the near future, with this provider at this time: Yes The last office visit in the department: 01/20/25 Does the patient have a future office visit with this provider/department: Yes 05/12/25 Requested Prescriptions Pending Prescriptions Disp Refills HYDROcodone-acetaminophen (NORCO) 5-325 mg per tablet 28 tablet 0 Sig: Take 1-2 tablets by mouth every 6 hours as needed for pain for up to 7 days. Sylwia Marcial LPN March 16, 2025 3:54 PM [facility]06-27-2025 History of Present illness Narrative* Nanci Cook, PT - 03/13/2025 12:32 PM EDT Program_ID:[id number] Access Code: [email or web address] URL: [email or web address] Date: 03-13-2025 Prepared By: Nanci Cook Program Notes Exercises - Seated Transversus Abdominis Bracing - 2 x daily - 7 x weekly - 4 sets - 10 reps - Standing Lumbar Extension - 2 x daily - 7 x weekly - 5 sets - 5 reps - Standing Gluteal Sets - 2 x daily - 7 x weekly - 3 sets - 5 reps - Seated Heel Raise - 2 x daily - 7 x weekly - 3 sets - 12 reps * Nanci Cook, PT - 03/13/2025 11:53 AM EDT Episode Visit Count: 2 Therapist That Will Accept/Oversee The Plan Of Care: Nanci Cook Start of Care Date: 02/24/25 Onset Date: 02/24/10 Plan of Care Certification Date: 02/24/25 Next Certification Due Date: 04/07/25 REHABILITATION AND SPORTS THERAPY PHYSICAL THERAPY TREATMENT NOTE ASSESSMENT: Nanciarelis Rodriguez tolerated the session with increased symptoms. She demonstrated improvements in centralization of symptoms and reduced back pain reported as a result of static standing lumbar extension. LLE lateral leg/hip pain continued but pt. [place] best with static standing vs. Sitting. . The patient will continue to benefit from ongoing skilled physical therapy to progress toward set goals. PLAN FOR NEXT VISIT: SUBJECTIVE: Pt. requires for PT to wheel her in a w/c back to PT dept. Has increased pain. Able to stand and walk from w/c to bench. Pt. was not able to bring her rollator. Patient Goals: reduce LBP, get MRI approved by insurance. Sleep better and get my health better. Walk better. Pain: Pain Pain Level: 8 Pain Location: Low Back/Lumbar Spine - Left Description: Aching Frequency: Continuous Post Treatment Pain Post Treatment Pain Level: Better Post Treatment Pain Location: Low Back/Lumbar Spine - Left OBJECTIVE MEASURES WITH LEVEL OF FUNCTION: TREATMENT: Therapeutic Exercise: 1: static standing in FWW 1 min, 30 sec rest 5 sets 2: standing lumbar extension standing in FWW 8 + 5x5, improved ROM demonstrated (denies LBP after 3rd set, only has LLE radiating pain which centralized to the mid low back) 3: static standing in FWW glute [id number], 10 sec hold 4: seated B heel raises 2x12 Skilled Intervention: Patient was educated in proper exercise technique and purpose for exercises. Skilled judgment was used in selection of appropriate interventions. Provided written instruction for home exercise program to facilitate proper performance and compliance. Educated patient on rationale for performing exercises in regards to decreasing fatigue , increase ease of ADL, and ROM and function . Patient education as noted. Therapeutic Activity: 1: 5x, stepping back until legs feel EOB surface, reaching with UE support to sit. Skilled Intervention: Proper patient guarding to prevent falls/increase patient safety with stand by assist to assist patient while performing sit <> stand transfers EOB <> FWW. Ensured patient safety with use of Moderate verbal cues for maintaining neutral spine alignment. Activity progression based on professional judgment. Self-Nursing Home Management: 1: discussed the difference between a FWW and a rollator, explained why a rollator is less stable than a FWW Skilled Intervention: Skilled judgment in the selection of proper modification for activity of daily living/home management based on clinical presentation, deficits, and needs. Provided written instruction for activities of daily living techniques to facilitate proper performance and compliance. Reviewed patient specific diagnosis in relation to activities of daily living/home management. Activity progression based on professional judgement. Billing Therapeutic Exercise Treatment Minutes: 35 Therapeutic Activity Treatment Minutes: 2 Self-Care/Home Management Treatment Minutes: 3 Skilled Treatment Time Minutes (timed and untimed codes): 40 Total Session Time (minutes): 40 Session Start Time : 1153 Session Stop Time : 1233 Nanci Cook PT documented in this encounterDayton Children'S [facility]06-27-2025 NoteHNO ID: [id number] Author: NANCI COOK PT Service: ? Author Type: Physical Therapist Type: Progress Notes Filed: 03/13/2025 12:38 Note Text: Episode Visit Count: 2 Therapist That Will Accept/Oversee The Plan Of Care: Nanci Cook Start of Care Date: 02/24/25 Onset Date: 02/24/10 Plan of Care Certification Date: 02/24/25 Next Certification Due Date: 04/07/25 REHABILITATION AND SPORTS THERAPY PHYSICAL THERAPY TREATMENT NOTE ASSESSMENT: Nanci Rodriguez tolerated the session with increased symptoms. She demonstrated improvements in centralization of symptoms and reduced back pain reported as a result of static standing lumbar extension. LLE lateral leg/hip pain continued but pt. [place] best with static standing vs. Sitting. . The patient will continue to benefit from ongoing skilled physical therapy to progress toward set goals. PLAN FOR NEXT VISIT: SUBJECTIVE: Pt. requires for PT to wheel her in a w/c back to PT dept. Has increased pain. Able to stand and walk from w/c to bench. Pt. was not able to bring her rollator. Patient Goals: reduce LBP, get MRI approved by insurance. Sleep better and get my health better. Walk better. Pain: Pain Pain Level: 8 Pain Location: Low Back/Lumbar Spine - Left Description: Aching Frequency: Continuous Post Treatment Pain Post Treatment Pain Level: Better Post Treatment Pain Location: Low Back/Lumbar Spine - Left OBJECTIVE MEASURES WITH LEVEL OF FUNCTION: TREATMENT: Therapeutic Exercise: 1: static standing in FWW 1 min, 30 sec rest 5 sets 2: standing lumbar extension standing in FWW 8 + 5x5, improved ROM demonstrated (denies LBP after 3rd set, only has LLE radiating pain which centralized to the mid low back) 3: static standing in FWW glute [id number], 10 sec hold 4: seated B heel raises 2x12 Skilled Intervention: Patient was educated in proper exercise technique and purpose for exercises. Skilled judgment was used in selection of appropriate interventions. Provided written instruction for home exercise program to facilitate proper performance and compliance. Educated patient on rationale for performing exercises in regards to decreasing fatigue , increase ease of ADL, and ROM and function . Patient education as noted. Therapeutic Activity: 1: 5x, stepping back until legs feel EOB surface, reaching with UE support to sit. Skilled Intervention: Proper patient guarding to prevent falls/increase patient safety with stand by assist to assist patient while performing sit <> stand transfers EOB <> FWW. Ensured patient safety with use of Moderate verbal cues for maintaining neutral spine alignment. Activity progression based on professional judgment. Self-Nursing Home Management: 1: discussed the difference between a FWW and a rollator, explained why a rollator is less stable than a FWW Skilled Intervention: Skilled judgment in the selection of proper modification for activity of daily living/home management based on clinical presentation, deficits, and needs. Provided written instruction for activities of daily living techniques to facilitate proper performance and compliance. Reviewed patient specific diagnosis in relation to activities of daily living/home management. Activity progression based on professional judgement. Billing Therapeutic Exercise Treatment Minutes: 35 Therapeutic Activity Treatment Minutes: 2 Self-Care/Home Management Treatment Minutes: 3 Skilled Treatment Time Minutes (timed and untimed codes): 40 Total Session Time (minutes): 40 Session Start Time : 1153 Session Stop Time : 1233 Nanci Cook [facility]06-25-2025 Progress note Author Se[facility] Note Date/Time March 11, 2025 10:5 2am [facility] [address] [place] [address] Progress Note - Wound Care 03/11/25 1050 MR#: [id number] Acct: [id number] Name: LISBETHNANCI L Rep #:[id number] : 1980 44 From: [facility] PCP: Dr. Rodri Chauhan MD Status:RE G RCR Location: History of Present Illness Date of Service: 03/11/25 Chief Complaint: Ulceration right posterior leg History of Wound: Ulceration right posterior leg Progress of Wound: Stable full-thickness wound right calf, healed Subjective Subjective Patient is a 44-year-old diabetic female presented wound care center today for follow-up evaluation of right posterior calf full-thickness wound. Patient has been compliant with multilayer compression wraps. She states that her blood sugars well-controlled. She believes that her wound is now healed. She denies any drainage or pain. Denies trauma. Denies constitutional symptoms. No otherpedal complaints at this time. Objective Data Objective Data Vital Signs: Vital Signs Temp Pulse Resp BP O2 Del Method 97 F L 102 H 18 150/91 H Room Air 03/11/25 09:40 03/11/25 09:40 03/11/25 09:40 03/11/25 09:40 03/04/25 10:38 Oxygen Delivery Method Room Air Weight: 160.223 kg Body Mass Index (BMI) 62.5 Lab / Micro Data Micro: Microbiology 02/18/25 10:23 Ulcer, Decubitus - Leg, Right Gram Stain - Final 02/18/25 10:23 Ulcer, Decubitus - Leg, Right Wound Culture - Final Escherichia coli Klebsiella spp. Staphylococcus aureus Streptococcus agalactiae (B) Corynebacterium amycolatum/xer 02/18/25 10:23 Ulcer, Decubitus - Leg, Right Anaerobic Culture - Final Clostridium clostridioforme Physical Exam Narrative Vascular: DP and PT pulses palpable. CFT is brisk. Nonpitting edema appreciated to right lower extremity. No erythema. Skin temperature gradient is warm to warm from proximal ankles to distal digit, no focal increase appreciated. Neurological: Light touch intact. Patient response to painful stimuli. Dermatological: Full-thickness wound to the right posterior calf is now healed. No maceration drainage or concern for infection. Musculoskeletal: No pain with calf compression. No pain to palpation full- thickness ulceration right calf. Debridement Note Debridement Note Post-Debridement Measurements and Additional Note: Post-Debridement Measurements/Treatment - Nurse 1 - General Ulcer Assessment Start: 02/18/25 09:51 Freq: Status: Active Protocol: PANCHITO.SAY Activity Type Activity Date Activity User E-sign Co-sign Detail Recorded Client Recorded Date Recorded By Document 02/18/25 09:52 MT [id number] 02/18/25 10:13 MT Document 02/20/25 11:49 KW [id number] 02/20/25 12:21 KW Document 02/25/25 10:17 RB [id number] 02/25/25 10:21 RB Document 03/04/25 10:38 MT [id number] 03/04/25 11:01 MT Document 03/11/25 09:40 RB [id number] 03/11/25 09:46 RB 02/18/25 02/20/25 02/25/25 09:52 11:49 10:17 - Today's Visit Information Type of service Initial Visit Nurse-only Nurse-only Visit Visit Arrival Mode Ambulatory Ambulatory Ambulatory, Walker Transfer Assistance None Accompanied by self Patient Identification Verified (Name & Yes Yes Yes ) Patient Requires Transmission-Based No Precautions Safety Precautions Fall Prevention Height and Weight Body Mass Index (BMI) 62.5 62.5 62.5 BMI Classification Obese Obese Obese Vital Signs Temperature (97.8 F-99.1 F) 98 F 96.9 F L 97.1 F L Temperature Source Temporal Temporal Temporal Pulse Rate (60-100) 108 H 104 H 102 H Pulse Location Monitor Monitor Monitor Respiratory Rate (12-18) 18 18 18 Respiratory rate source Observation Observation Observation Oxygen Delivery Method Room Air Blood Pressure (90/60-120/80) 141/93 H 145/113 H 158/89 H Blood Pressure Mean (mm Hg) 109 123 112 Source Monitor Monitor Monitor Position Sitting Sitting Sitting Blood Pressure Location Left Arm Left Forearm Left Forearm History Since Last Visit- (Skip if this is Patient's initial visit) Have you changed medications since your No last visit? Any new allergies or adverse reactions No Had a fall/change in ADL's that may No increase risk of falls Signs or symptoms of abuse and/or No neglect since last visit Have you been in the hospital since your No last visit? Has dressing in place as prescribed Yes Yes Has compression in place as prescribed Yes Yes Has offloadiing in place as prescribed Yes No Experienced any changes in pain level or Yes No management Left Footwear Regular Shoe Regular Shoe Regular Shoe Right Footwear Regular Shoe Regular Shoe Regular Shoe Pain Scale: 0-10 Numeric Is Patient Pain Free? Yes Yes Yes 03/04/25 03/11/25 10:38 09:40 - Today's Visit Information Type of service Nurse-only Follow-up Visit Visit (Physician/SENIOR TRAINER ) Arrival Mode Ambulatory, Ambulatory Walker Transfer Assistance Manual Accompanied by self Patient Identification Verified (Name & Yes Yes ) Patient Requires Transmission-Based No Precautions Safety Precautions Fall Prevention Height and Weight Body Mass Index (BMI) 62.5 62.5 BMI Classification Obese Obese Vital Signs Temperature (97.8 F-99.1 F) 97 F L 97 F L Temperature Source Temporal Temporal Pulse Rate (60-100) 100 102 H Pulse Location Monitor Monitor Respiratory Rate (12-18) 18 Respiratory rate source Observation Observation Oxygen Delivery Method Room Air Blood Pressure (90/60-120/80) 127/81 H 150/91 H Blood Pressure Mean (mm Hg) 96 110 Source Monitor Monitor Position Sitting Semi-Fowlers Blood Pressure Location Left Forearm Left Arm History Since Last Visit- (Skip if this is Patient's initial visit) Have you changed medications since your No last visit? Any new allergies or adverse reactions No Had a fall/change in ADL's that may No increase risk of falls Signs or symptoms of abuse and/or No neglect since last visit Have you been in the hospital since your No last visit? Has dressing in place as prescribed Yes Has compression in place as prescribed Yes Has offloadiing in place as prescribed N/A Experienced any changes in pain level or No management Left Footwear Regular Shoe Right Footwear Regular Shoe Pain Scale: 0-10 Numeric Is Patient Pain Free? Yes Yes WC - Nurse 1 - General Ulcer Measurement Start: 02/18/25 09:51 Freq: Status: Active Protocol: Activity Type Activity Date Activity User E-sign Co-sign Detail Recorded Client Recorded Date Recorded By Document 02/18/25 09:52 MT [id number] 02/18/25 10:13 MT Document 02/25/25 10:17 RB [id number] 02/25/25 10:21 RB Document 03/11/25 09:40 RB [id number] 03/11/25 09:46 RB 02/18/25 02/25/25 03/11/25 09:52 10:17 09:40 Wound Center Nurse 1 #2 Left Posterior Calf Superior -Current Size (cm) - Length 0.4 -Current Size (cm) - Width 0.4 -Current Size (cm) - Depth 0.2 -Total Square Cm 0.16 -Date of Last Picture (Recall this 02/18/25 field) -Photo Taken Yes -Tunneling No -Undermining/Tunneling No -Circular Undermining No -Exudate Amt Medium -Exudate Type Serosanguineous -Wound Margin Thickened & Rolled Under -Granulation Amt Large (67-100%) -Granulation Quality Pale,[place] -Necrosis Amt Small (1-33%) -Necrotic Tissue Type Adherent Slough -Texture (Rachele-wound Skin Appearance) Assessed -Moisture (Rachele-wound Skin Appearance) Assessed -Color (Rachele-wound Skin Appearance) Assessed -Temperature (Rachele-wound Skin No Abnormality Appearance) (Pt Warm) -Tenderness on Palpation (Rachele-wound No Skin Appearance) -Ulcer Cleansing Soap and Water -Foul Odor after Cleansing No -Anesthetic Used 5% Lidocaine Gel #3 right Post Inferior Calf cluster -Combined with other wound No -Current Size (cm) - Length 1 0.1 -Current Size (cm) - Width 2.5 0.1 -Current Size (cm) - Depth 0.3 0.1 -Total Square Cm 2.5 0.01 -Date of Last Picture (Recall this 02/18/25 field) -Photo Taken Yes Yes -Tunneling No No -Undermining/Tunneling No No -Circular Undermining No -Exudate Amt Medium Small -Exudate Type Serosanguineous Serosanguineous -Wound Margin Thickened & Distinct, Rolled Under Outline Attached -Granulation Amt Large (67-100%) Medium (34-66%) -Granulation Quality Pale,[place] -Slough/Fibrin Yes -Necrosis Amt Small (1-33%) Medium (34-66%) -Necrotic Tissue Type Adherent Slough Adherent Slough -Structure Exposed N/A -Texture (Rachele-wound Skin Appearance) Assessed Assessed, Excoriation -Moisture (Rachele-wound Skin Appearance) Assessed Assessed -Color (Rachele-wound Skin Appearance) Assessed Assessed -Temperature (Rachele-wound Skin No Abnormality No Abnormality Appearance) (Pt Warm) (Pt Warm) -Tenderness on Palpation (Rachele-wound No No Skin Appearance) -Ulcer Cleansing Soap and Water Wound Cleanser -Foul Odor after Cleansing No No -Anesthetic Used 5% Lidocaine 5% Lidocaine Gel Gel Lower Limb Edema Present Yes Yes Right Calf (cm) 67.2 63.5 Right Ankle (cm) 32 32 Left Calf (cm) 62.5 56.5 Left Ankle (cm) 33.2 31 WC - Nurse 2 - General Ulcer CM Notes Start: 02/18/25 09:51 Freq: Status: Active Protocol: Activity Type Activity Date Activity User E-sign Co-sign Detail Recorded Client Recorded Date Recorded By Document 02/18/25 10:26 RUBA [id number] 02/18/25 10:27 JF Document 03/11/25 09:56 DS [id number] 03/11/25 09:57 DS Edit Result 03/11/25 09:56 DS (1) [id number] 03/11/25 09:59 DS (1) #3 right Post Inferior Calf cluster - Correct Procedure Yes => - Procedure Performed Yes => No - Type of Procedure Debridement => - Clinical Debridement Subcutaneous => - Wound/Ulcer Outcome Not Healed => Healed- => Epithelialized - Ulcer Cleansing Rinsed/Irrigated => with Saline => - Foul Odor after Cleansing No => - Bioengineered Tissue No => - Bleeding Controlled with Pressure => - Treatment Response Procedure => Tolerated Well => - Debridement - Subq, 1st 20sq cm Yes => 02/18/25 03/11/25 10:26 09:56 Wound Center Nurse 2 #3 right Post Inferior Calf cluster -Time 10:26 09:56 -Correct Patient Yes Yes -Correct Side, Site, Position Yes Yes -Correct Procedure Yes -Procedure Performed Yes No -Type of Procedure Debridement -Clinical Debridement Subcutaneous -Tissue Removed Subcutaneous Subcutaneous -Post Debridement (cm) - Length 1.7 0.1 -Post Debridement (cm) - Width 0.4 0.1 -Post Debridement (cm) - Depth 0.1 0.1 -Total Square (Post) (cm) 0.68 0.01 -Area of Debridement (cm) - Length 1.7 0.1 -Area of Debridement (cm) - Width 0.4 0.1 -Total Square (Area) (cm) 0.68 0.01 -Tunneling No No -Undermining/Tunneling No No -Circular Undermining No No -Wound/Ulcer Outcome Not Healed Healed- Epithelialized -Ulcer Cleansing Rinsed/ Irrigated with Saline -Foul Odor after Cleansing No -Bioengineered Tissue No -Bleeding Controlled with Pressure -Treatment Response Procedure Tolerated Well -Offloading No -Debridement - Subq, 1st 20sq cm Yes Pain Scale: 0-10 Numeric Is Patient Pain Free? Yes Yes - Nurse 3 - General Ulcer D/C NN Start: 02/18/25 09:51 Freq: Status: Active Protocol: Activity Type Activity Date Activity User E-sign Co-sign Detail Recorded Client Recorded Date Recorded By Document 02/18/25 10:48 [id number] 02/18/25 10:49 Document 02/20/25 11:49 [id number] 02/20/25 12:21 KW Document 02/25/25 10:17 RB [id number] 02/25/25 10:21 RB Document 03/04/25 10:38 MT [id number] 03/04/25 11:01 MT Edit Result 03/04/25 10:38 MT (1) [id number] 03/04/25 12:28 MT Document 03/11/25 10:14 RB [id number] 03/11/25 10:15 RB (1) BLE - Multi-Layer Compression Bilat (Qty 2 => 1 applied) 02/18/25 02/20/25 02/25/25 10:48 11:49 10:17 Wound Care Center Nurse 3 #3 right Post Inferior Calf cluster -Ulcer Cleansing Not Cleansed Soap and Water -Foul Odor after Cleansing No -Negative Pressure Wound Therapy -Other Dressing betadine betadine gauze/ ABD -Primary Dressing Covered/Secured with Dry Gauze & Dry Gauze & Dry Gauze & Roll Gauze, Roll Gauze, Roll Gauze, Secured with Secured with Secured with Tape Tape Tape Rachele-Wound Care BLE -Lotion applied to leg before Yes compression wrap -Multi-Layered Wrap Application Multi-Layer Multi-Layer Comp - Bilat ($ Comp - Bilat ($ ) ) -Stockings -Multi-Layer Compression Bilat (Qty 1 1 applied) Right Lower Leg -Lotion applied to leg before No compression wrap -Multi-Layered Wrap Application Multi-Layer Comp - Bilat ($ ) -Size of Tubigrip Used -Size F ($) -Multi-Layer Compression Bilat (Qty 1 applied) Treatment Response Procedure Tolerated Well Pain Scale: 0-10 Numeric Is Patient Pain Free? Yes Yes Yes WC - Visit Discharge Discharge Condition Stable Stable Stable Ambulatory Status Ambulatory, Ambulatory Ambulatory, Walker Walker Transportation Private Auto Private Auto Private Auto Medication Reconcilliation completed & No No provided to patient/care provider Clinical Summary of Care Provided Yes Yes Notes: 2 boxes of 3M used bilat 03/04/25 03/11/25 10:38 10:14 Wound Care Center Nurse 3 #3 right Post Inferior Calf cluster -Ulcer Cleansing Soap and Water -Foul Odor after Cleansing No -Negative Pressure Wound Therapy N/A -Other Dressing betadine -Primary Dressing Covered/Secured with Dry Gauze & Roll Gauze, Secured with Tape Rachele-Wound Care Lotion BLE -Lotion applied to leg before compression wrap -Multi-Layered Wrap Application Multi-Layer Comp - Bilat ($ ) -Stockings Yes: pt own circaids -Multi-Layer Compression Bilat (Qty 1 applied) Right Lower Leg -Lotion applied to leg before compression wrap -Multi-Layered Wrap Application -Size of Tubigrip Used Size F -Size F ($) 2 -Multi-Layer Compression Bilat (Qty applied) Treatment Response Procedure Tolerated Well Pain Scale: 0-10 Numeric Is Patient Pain Free? Yes Yes WC - Visit Discharge Discharge Condition Stable Stable Ambulatory Status Ambulatory, Ambulatory, Walker Walker Transportation Private Auto [facility] Medication Reconcilliation completed & No No provided to patient/care provider Clinical Summary of Care Provided Yes Yes Notes: pt verbalizes understanding of wound care Assessment/Plan Assessment/Plan (1) Non-pressure chronic ulcer of unspecified part of right lower leg with fat layer exposed: CODE(S): L97.912 - Non-pressure chronic ulcer of unspecified part of rightlower leg with fat layer exposed PLAN: Patient was examined and evaluated. All findings were discussed with the patient. All questions were answered to the patient's satisfaction. The patient is full-thickness wound to the right lower extremity is now healed. Patient will be discharged from the wound care center. Patient was placed in her multi layer wrap/CircAid's to the by the lower extremity. She will continue to change them daily. I educated the patient if she is concern for any skin breakdown she is to call the wound care center today to get back on the schedule for multilayer compression wraps. Patient will continue strict blood sugar control. She will be following up with bariatric surgery at [facility] in the next few weeks. Patient will be discharged from the wound care center today as she is healed. (2) Lymphedema: CODE(S): I89.0 - Lymphedema, not elsewhere classified 03/11/25 1052 <Electronically signed by Sebas Lord DPM> Cosigner Signature (if applicable): CC: ~ Signed [facility] Work Phone: 1(117) 397-383106-25-2025 Evaluation note* Diagnosis Onset Date Resolution Status Admit Date Lymphedema acute Marily 25th, 202 5 10:15am 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 March 11 10:15am Lymphedema, not elsewhere classified acute May 06 9:04am [facility] Work Phone: 1(324) 883-199206-25-2025 Progress note [facility] [address] [place] [address] Progress Note - Wound Care 03/11/25 1050 MR#: [id number] Acct: [id number] Name: NANCI RODRIGUEZ Rep #:[id number] : 1980 44 From: Sebas Dhaliwal PM PCP: Dr. Rodri Chauhan MD Status:RE G RCR Location: History of Present Illness Date of Service: 03/11/25 Chief Complaint: Ulceration right posterior leg History of Wound: Ulceration right posterior leg Progress of Wound: Stable full-thickness wound right calf, healed Subjective Subjective Patient is a 44-year-old diabetic female presented wound care center today for follow-up evaluationof right posterior calf full-thickness wound. Patient has been compliant with multilayer compression wraps. She states that her blood sugars well-controlled. She believes that her wound is now healed. She denies any drainage or pain. Denies trauma. Denies constitutional symptoms. No otherpedal complaints at this time. Objective Data Objective Data Vital Signs: Vital Signs Temp Pulse Resp BP O2 Del Method 97 F L 102 H 18 150/91 H Room Air 03/11/25 09:40 03/11/25 09:40 03/11/25 09:40 03/11/25 09:40 03/04/25 10:38 Oxygen Delivery Method Room Air Weight: 160.223 kg Body Mass Index (BMI) 62.5 Lab / Micro Data Micro: Microbiology 02/18/25 10:23 Ulcer, Decubitus - Leg, Right Gram Stain - Final 02/18/25 10:23 Ulcer, Decubitus - Leg, Right Wound Culture - Final Escherichia coli Klebsiella spp. Staphylococcus aureus Streptococcus agalactiae (B) Corynebacterium amycolatum/xer 02/18/25 10:23 Ulcer, Decubitus - Leg, Right Anaerobic Culture - Final Clostridium clostridioforme Physical Exam Narrative Vascular: DP and PT pulses palpable. CFT is brisk. Nonpitting edema appreciated to right lower extremity. No erythema. Skin temperature gradient is warm to warm from proximal ankles to distal digit, no focal increase appreciated. Neurological: Light touch intact. Patient response to painful stimuli. Dermatological: Full-thickness wound to the right posterior calf is now healed. No maceration drainage or concern for infection. Musculoskeletal: No pain with calf compression. No pain to palpation full- thickness ulceration right calf. Debridement Note Debridement Note Post-Debridement Measurements and Additional Note: Post-Debridement Measurements/Treatment - Nurse 1 - General Ulcer Assessment Start: 02/18/25 09:51 Freq: Status: Active Protocol: .LOWEXT Activity Type Activity Date Activity User E-sign Co-sign Detail Recorded Client Recorded Date Recorded By Document 02/18/25 09:52 MT [id number] 02/18/25 10:13 MT Document 02/20/25 11:49 KW [id number] 02/20/25 12:21 KW Document 02/25/25 10:17 RB [id number] 02/25/25 10:21 RB Document 03/04/25 10:38 MT [id number] 03/04/25 11:01 MT Document 03/11/25 09:40 RB [id number] 03/11/25 09:46 RB 02/18/25 02/20/25 02/25/25 09:52 11:49 10:17 - Today's Visit Information Type of service Initial Visit Nurse-only Nurse-only Visit Visit Arrival Mode Ambulatory Ambulatory Ambulatory, Walker Transfer Assistance None Accompanied by self Patient Identification Verified (Name & Yes Yes Yes ) Patient Requires Transmission-Based No Precautions Safety Precautions Fall Prevention Height and Weight Body Mass Index (BMI) 62.5 62.5 62.5 BMI Classification Obese Obese Obese Vital Signs Temperature (97.8 F-99.1 F) 98 F 96.9 F L 97.1 F L Temperature Source Temporal Temporal Temporal Pulse Rate (60-100) 108 H 104 H 102 H Pulse Location Monitor Monitor Monitor Respiratory Rate (12-18) 18 18 18 Respiratory rate source Observation Observation Observation Oxygen Delivery Method Room Air Blood Pressure (90/60-120/80) 141/93 H 145/113 H 158/89 H Blood Pressure Mean (mm Hg) 109 123 112 Source Monitor Monitor Monitor Position Sitting Sitting Sitting Blood Pressure Location Left Arm Left Forearm Left Forearm History Since Last Visit- (Skip if this is Patient's initial visit) Have you changed medications since your No last visit? Any new allergies or adverse reactions No Had a fall/change in ADL's that may No increase risk of falls Signs or symptoms of abuse and/or No neglect since last visit Have you been in the hospital since your No last visit? Has dressing in place as prescribed Yes Yes Has compression in place as prescribed Yes Yes Has offloadiing in place as prescribed Yes No Experienced any changes in pain level or Yes No management Left Footwear Regular Shoe Regular Shoe Regular Shoe Right Footwear Regular Shoe Regular Shoe Regular Shoe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 Pale,[place] -Necrosis Amt Small (1-33%) -Necrotic Tissue Type Adherent Slough -Texture (Rachele-wound Skin Appearance) Assessed -Moisture (Rachele-wound Skin Appearance) Assessed -Color (Rachele-wound Skin Appearance) Assessed -Temperature (Rachele-wound Skin No Abnormality Appearance) (Pt Warm) -Tenderness on Palpation (Rachele-wound No Skin Appearance) -Ulcer Cleansing Soap and Water -Foul Odor after Cleansing No -Anesthetic Used 5% Lidocaine Gel #3 right Post Inferior Calf cluster -Current Size (cm) - Length 1 -Current Size (cm) - Width 2.5 -Current Size (cm) - Depth 0.3 -Total Square Cm 2.5 -Date of Last Picture (Recall this 02/18/25 field) -Photo Taken Yes -Tunneling No -Undermining/Tunneling No -Exudate Amt Medium -Exudate Type Serosanguineous -Wound Margin Thickened & Rolled Under -Granulation Amt Large (67-100%) -Granulation Quality Pale,[place] -Necrosis Amt Small (1-33%) -Necrotic Tissue Type Adherent Slough -Texture (Rachele-wound Skin Appearance) Assessed -Moisture (Rachele-wound Skin Appearance) Assessed -Color (Rachele-wound Skin Appearance) Assessed -Temperature (Rachele-wound Skin No Abnormality Appearance) (Pt Warm) -Tenderness on Palpation (Rachele-wound No Skin Appearance) -Ulcer Cleansing Soap and Water -Foul Odor after Cleansing No -Anesthetic Used 5% Lidocaine Gel WC - Nurse 2 - General Ulcer CM Notes Start: 02/18/25 09:51 Freq: Status: Active Protocol: Activity Type Activity Date Activity User E-sign Co-sign Detail Recorded Client Recorded Date Recorded By Document 02/18/25 10:26 RUBA [id number] 02/18/25 10:27 RUBA 02/18/25 10:26 Wound Center Nurse 2 -Time 10:26 -Correct Patient Yes -Correct Side, Site, Position Yes -Correct Procedure Yes -Procedure Performed Yes -Type of Procedure Debridement -Clinical Debridement Subcutaneous -Tissue Removed Subcutaneous -Post Debridement (cm) - Length 1.7 -Post Debridement (cm) - Width 0.4 -Post Debridement (cm) - Depth 0.1 -Total Square (Post) (cm) 0.68 -Area of Debridement (cm) - Length 1.7 -Area of Debridement (cm) - Width 0.4 -Total Square (Area) (cm) 0.68 -Tunneling No -Undermining/Tunneling No -Circular Undermining No -Wound/Ulcer Outcome Not Healed -Ulcer Cleansing Rinsed/ Irrigated with Saline -Foul Odor after Cleansing No -Bioengineered Tissue No -Bleeding Controlled with Pressure -Treatment Response Procedure Tolerated Well -Offloading No -Debridement - Subq, 1st 20sq cm Yes Pain Scale: 0-10 Numeric Is Patient Pain Free? Yes Assessment/Plan Assessment/Plan (1) Non-pressure chronic ulcer of unspecified part of right lower leg with fat layer exposed: CODE(S): L97.912 - Non-pressure chronic ulcer of unspecified part of rightlower leg with fat layer exposed PLAN: Patient was examined and evaluated. All findings were discussed with the patient. All questions were answered to the patient's satisfaction. Excisional debridement down to including subcutaneous tissue with a number 3 mm dermal curette to the full-thickness wound to the posterior right calf done without incident.. Right measurement is 1.0x 0.2 x 0.1 cm. Postdebridement measurement is 1.7 x 0.4 x 0.1 cm. A culture was taken from the posterior leg wound and the patient will be placed on antibiotics onceculture and sensitivity is received. At this time the rightposterior calf was wiped clean and patted dry. The area was dressed with Betadine paint and a 3M multilayer compression bandage was donned to the bilateral extremity. the patient will follow-up for nursing visits weekly for dressing changesas well as evaluation. Follow-up at the wound care center with Dr. Lord in 3 week. (2) Lymphedema: CODE(S): I89.0 - Lymphedema, not elsewhere classified 02/18/25 1040 Cosigner Signature (if applicable): CC: ~ Signed [facility]06-03-2025 Telephone encounter Note* Telephone Encounter - Nuzhat Montes RN - 02/17/2025 4:12 PM EDT Patient is taking the 3 mg dose. [facility]06-03-2025 Miscellaneous Notes* Telephone Encounter - Nuzhat Montes RN - 02/17/2025 4:12 PM EDT Patient is taking the 3 mg dose. * Telephone Encounter - Lizabeth Hurtado LPN - 02/17/2025 3:10 PM EDT No answer. Left message for patient to call office and ask to speak to a nurse regarding dulaglutide (TRULICITY) * Telephone Encounter - Johnson Rm APRN.CNS - 02/17/2025 12:38 PM EDT Check to see what dose of dulaglutide she would like filled, she is no longer taking 0.75mg/week. It would either be 1.5mg or 3 mg per week * Telephone Encounter - Alize Manjarrez MA - 02/17/2025 9:48 AM EDT Patient has been identified by name and date of : yes Patient phones for refill(s): Requested Prescriptions Pending Prescriptions Disp Refills dulaglutide (TRULICITY) 0.75 mg/0.5 mL pen injector 2 mL 1 Sig: Inject 0.75 mg subcutaneously one time a week. Inject dose once per week. Discard Pen After cyclobenzaprine (FLEXERIL) 10 mg tablet 30 tablet 2 Sig: Take 1 tablet by mouth three times a day as needed for muscle spasm. May make drowsy Date of last office visit in primary care: 01/20/2025 Date of next office visit in primary care: 05/12/2025 Please advise. Thank you. Alize Manjarrez MA. * Telephone Encounter - Tanya Angelo - 02/17/2025 9:44 AM EDT Prescription Refill Information The patient has been identified by name and date of : Yes Caregiver verified no other encounters exist for this prescription request: Yes Caregiver confirmed with patient/requestor that no other refills are due, in the near future, with this provider at this time: Yes The last office visit in the department: 08-25-25 Does the patient have a future office visit with this provider/department: Yes Requested Prescriptions Pending Prescriptions Disp Refills dulaglutide (TRULICITY) 0.75 mg/0.5 mL pen injector 2 mL 1 Sig: Inject 0.75 mg subcutaneously one time a week. Inject dose once per week. Discard Pen After cyclobenzaprine (FLEXERIL) 10 mg tablet 30 tablet 2 Sig: Take 1 tablet by mouth three times a day as needed for muscle spasm. May make drowsy Tanya Brad Rodrigues February 17, 2025 9:45 AM documented in this encounterDay[facility] Telephone encounter Note * Telephone Encounter - Lizabeth Hurtado LPN - 02/17/2025 3:10 PM EDT No answer. Left message for patient to call office and ask to speak to a nurse regarding dulaglutide (TRULICITY) [facility]-03-2025 Telephone encounter Note* Telephone Encounter - Johnson Rm APRN.CNS - 02/17/2025 12:38 PM EDT Check to see what dose of dulaglutide she would like filled, she is no longer taking 0.75mg/week. It would either be 1.5mg or 3 mg per week [facility]06-03-2025 Telephone encounter Note* Telephone Encounter - Alize Manjarrez MA - 02/17/2025 9:48 AM EDT Patient has been identified by name and date of : yes Patient phones for refill(s): Requested Prescriptions Pending Prescriptions Disp Refills dulaglutide (TRULICITY) 0.75 mg/0.5 mL pen injector 2 mL 1 Sig: Inject 0.75 mg subcutaneously one time a week. Inject dose once per week. Discard Pen After cyclobenzaprine (FLEXERIL) 10 mg tablet 30 tablet 2 Sig: Take 1 tablet by mouth three times a day as needed for muscle spasm. May make drowsy Date of last office visit in primary care: 01/20/2025 Date of next office visit in primary care: 05/12/2025 Please advise. Thank you. Alize Manjarrez MA. [facility]06-03-2025 Telephone encounter Note* Telephone Encounter - Tanya Angelo - 02/17/2025 9:44 AM EDT Prescription Refill Information The patient has been identified by name and date of : Yes Caregiver verified no other encounters exist for this prescription request: Yes Caregiver confirmed with patient/requestor that no other refills are due, in the near future, with this provider at this time: Yes The last office visit in the department: 08-25-25 Does the patient have a future office visit with this provider/department: Yes Requested Prescriptions Pending Prescriptions Disp Refills dulaglutide (TRULICITY) 0.75 mg/0.5 mL pen injector 2 mL 1 Sig: Inject 0.75 mg subcutaneously one time a week. Inject dose once per week. Discard Pen After cyclobenzaprine (FLEXERIL) 10 mg tablet 30 tablet 2 Sig: Take 1 tablet by mouth three times a day as needed for muscle spasm. May make drowsy Tanya Rodrigues February 17, 2025 9:45 AM [facility]06-02-2025 Telephone encounter Note* Telephone Encounter - Sylwia Marcial LPN - 02/16/2025 2:04 PM EDT Prescription Refill Information The patient has been identified by name and date of : Yes Caregiver verified no other encounters exist for this prescription request: Yes Caregiver confirmed with patient/requestor that no other refills are due, in the near future, with this provider at this time: Yes The last office visit in the department: 01/20/25 Does the patient have a future office visit with this provider/department: Yes 05/12/25 Requested Prescriptions Pending Prescriptions Disp Refills HYDROcodone-acetaminophen (NORCO) 5-325 mg per tablet 28 tablet 0 Sig: Take 1-2 tablets by mouth every 6 hours as needed for pain for up to 7 days. Sylwia Marcial LPN February 16, 2025 2:04 PM [facility]06-02-2025 Miscellaneous Notes* Telephone Encounter - Sylwia Marcial LPN - 02/16/2025 2:04 PM EDT Prescription Refill Information The patient has been identified by name and date of : Yes Caregiver verified no other encounters exist for this prescription request: Yes Caregiver confirmed with patient/requestor that no other refills are due, in the near future, with this provider at this time: Yes The last office visit in the department: 01/20/25 Does the patient have a future office visit with this provider/department: Yes 05/12/25 Requested Prescriptions Pending Prescriptions Disp Refills HYDROcodone-acetaminophen (NORCO) 5-325 mg per tablet 28 tablet 0 Sig: Take 1-2 tablets by mouth every 6 hours as needed for pain for up to 7 days. Sylwia Marcial LPN February 16, 2025 2:04 PM documented in this encounterDayton [facility]05[facility] Telephone encounter Note * Telephone Encounter - Sylwia Marcial LPN - 02/11/2025 2:17 PM EDT Scheduled with PT on 02/24/25 [facility]05-28-2025 Miscellaneous Notes* Telephone Encounter - Sylwia Marcial LPN - 02/11/2025 2:17 PM EDT Scheduled with PT on 02/24/25 * Telephone Encounter - Nuzhat Montes RN - 02/10/2025 3:56 PM EDT Patient calls and states that she cannot do PT due to her back pain. Patient reports that she spokewith Dr. Colbert's office. Patient reports that they had told her to see if provider can place another MRI order to see if it is approved. Patient states that Dr. Colbert's office had told her that they are unable to place order because they have her doing pain management. Patient has appointment scheduled with pain management. Please review and advise, Nuzhat Montes RN documented in this encounterDayton [facility]05-27-2025 Telephone encounter Note * Telephone Encounter - Nzuhat Montes RN - 02/10/2025 3:56 PM EDT Patient calls and states that she cannot do PT due to her back pain. Patient reports that she spokewith Dr. Colbert's office. Patient reports that they had told her to see if provider can place another MRI order to see if it is approved. Patient states that Dr. Colbert's office had told her that they are unable to place order because they have her doing pain management. Patient has appointment scheduled with pain management. Please review and advise, Nuzhat Montes RN [facility]05-27-2025 Telephone encounter Note* Telephone Encounter - Vianney Elise RN - 02/10/2025 12:34 PM EDT Call placed to patient and message below reviewed with verbalized understanding. Patient reports she didn't see Dr. Colbert but the laundry assistant. Notified regardless to notify that office as they are the ones seeing her and wanting to order the MRI. Patient will contact them today. Vianney Elise RN [facility]05-27-2025 Miscellaneous Notes* Telephone Encounter - Vianney Elise RN - 02/10/2025 12:34 PM EDT Call placed to patient and message below reviewed with verbalized understanding. Patient reports she didn't see Dr. Colbert but the laundry assistant. Notified regardless to notify that office as they are the ones seeing her and wanting to order the MRI. Patient will contact them today. Vianney Elise RN * Telephone Encounter - Zunilda Jaramillo APRN.CNP - 02/10/2025 10:54 AM EDT I sent the refill for her norco to the pharmacy. If she has seen Dr. Colbert then she should call their office to see what other suggestion/guidance he has for her back pain since she is seeing him forthis especially if not able to do PT he ordered because of the pain. * Telephone Encounter - Vianney Elise RN - 02/10/2025 9:49 AM EDT Patient calls for severe lower back pain that radiates into left leg and to the toes with mild numbness. Nurse triage recommends see provider within 4 hours. Patient declines as she was recently seen. Reviewed care advice with verbalized understanding. OTC medication is not helping. Celebrex and [place] with minimal relief. Patient is going to try an ice pack and asking if provider has any other recommendations without an appointment. Patient also cancelled PT appointment today d/t pain. MRI order is pending PT for [address] Colbert with [facility]. Patient is completely out of [place] as of this morning. Requested in separate encounter. Reason for Disposition [1] SEVERE back pain (e.g., excruciating, unable to do any normal activities) AND [2] not improved 2 hours after pain medicine Answer Assessment - Initial Assessment Questions 1. ONSET:Patient reports on-going back pain but over the weekend it has worsened and now feels likeit is a sciatic nerve issue as pain and numbness go from lower back to left leg all the way to the toes and patient feels some numbness. 2. LOCATION: Lower back to left toes. 3. SEVERITY: - SEVERE (8-10): Excruciating pain, unable to do any normal activities. 9 currently. Taking Celebrex and [place] with little relief. 4. PATTERN: Constant 5. RADIATION: Yes, left leg all the way to the toes. 6. CAUSE: Patient is certain that it is from her sciatic nerve. 7. BACK OVERUSE: No recent lifting of heavy objects, strenuous work or exercise. 8. MEDICINES: Patient has tried tylenol, ibuprofen, Celebrex, [place]. 9. NEUROLOGIC SYMPTOMS: Mild numbness to left leg from hip to toe. No weakness or problems with bowel or bladder control. 10. OTHER SYMPTOMS: No fever, abdomen pain, burning with urination, blood in urine. 11. : No Protocols used: Back [id number] documented in this encounterDayton Children'[facility] Hospital05-27-2025 Telephone encounter Note * Telephone Encounter - Zunilda Jaramillo APRN.CNP - 02/10/2025 10:54 AM EDT I sent the refill for her norco to the pharmacy. If she has seen Dr. Colbert then she should call their office to see what other suggestion/guidance he has for her back pain since she is seeing him forthis especially if not able to do PT he ordered because of the pain. [facility]05-27-2025 Telephone encounter Note* Telephone Encounter - Vianney Elise RN - 02/10/2025 9:55 AM EDT The patient has been identified by name and date of : Yes Caregiver verified no other encounters exist for this prescription request: Yes Caregiver confirmed with patient/requestor that no other refills are due, in the near future, with this provider at this time: Yes The last office visit in the department: 01/20/2025 Does the patient have a future office visit with this provider/department: 05/12/2025 Requested Prescriptions Pending Prescriptions Disp Refills HYDROcodone-acetaminophen (NORCO) 5-325 mg per tablet 28 tablet 0 Sig: Take 1-2 tablets by mouth every 6 hours as needed for pain for up to 7 days. Vianney Elise RN February 10, 2025 9:55 AM [facility]05-27-2025 Miscellaneous Notes* Telephone Encounter - Vianney Elise RN - 02/10/2025 9:55 AM EDT The patient has been identified by name and date of : Yes Caregiver verified no other encounters exist for this prescription request: Yes Caregiver confirmed with patient/requestor that no other refills are due, in the near future, with this provider at this time: Yes The last office visit in the department: 01/20/2025 Does the patient have a future office visit with this provider/department: 05/12/2025 Requested Prescriptions Pending Prescriptions Disp Refills HYDROcodone-acetaminophen (NORCO) 5-325 mg per tablet 28 tablet 0 Sig: Take 1-2 tablets by mouth every 6 hours as needed for pain for up to 7 days. Vianney Elise RN February 10, 2025 9:55 AM documented in this encounterDayton Children'[facility]05-27-2025 Telephone encounter Note * Telephone Encounter - Vianney Elise RN - 02/10/2025 9:49 AM EDT Patient calls for severe lower back pain that radiates into left leg and to the toes with mild numbness. Nurse triage recommends see provider within 4 hours. Patient declines as she was recently seen. Reviewed care advice with verbalized understanding. OTC medication is not helping. Celebrex and [place] with minimal relief. Patient is going to try an ice pack and asking if provider has any other recommendations without an appointment. Patient also cancelled PT appointment today d/t pain. MRI order is pending PT for [address] Colbert with [facility]. Patient is completely out of [place] as of this morning. Requested in separate encounter. Reason for Disposition [1] SEVERE back pain (e.g., excruciating, unable to do any normal activities) AND [2] not improved 2 hours after pain medicine Answer Assessment - Initial Assessment Questions 1. ONSET:Patient reports on-going back pain but over the weekend it has worsened and now feels likeit is a sciatic nerve issue as pain and numbness go from lower back to left leg all the way to the toes and patient feels some numbness. 2. LOCATION: Lower back to left toes. 3. SEVERITY: - SEVERE (8-10): Excruciating pain, unable to do any normal activities. 9 currently. Taking Celebrex and [place] with little relief. 4. PATTERN: Constant 5. RADIATION: Yes, left leg all the way to the toes. 6. CAUSE: Patient is certain that it is from her sciatic nerve. 7. BACK OVERUSE: No recent lifting of heavy objects, strenuous work or exercise. 8. MEDICINES: Patient has tried tylenol, ibuprofen, Celebrex, [place]. 9. NEUROLOGIC SYMPTOMS: Mild numbness to left leg from hip to toe. No weakness or problems with bowel or bladder control. 10. OTHER SYMPTOMS: No fever, abdomen pain, burning with urination, blood in urine. 11. : No Protocols used: Back [id number] [facility]05-21-2025 Telephone encounter Note* Telephone Encounter - Rodri Chauhan MD - 02/04/2025 6:48 PM EDT The following approved medication requests have been transmitted electronically. Requested Prescriptions Signed Prescriptions Disp Refills HYDROcodone-acetaminophen (NORCO) 5-325 mg per tablet 28 tablet 0 Sig: Take 1-2 tablets by mouth every 6 hours as needed for pain for up to 7 days. Authorizing Provider: RODRI CHAUHAN MD [facility]05-21-2025 Miscellaneous Notes* Telephone Encounter - Rodri Chauhan MD - 02/04/2025 6:48 PM EDT The following approved medication requests have been transmitted electronically. Requested Prescriptions Signed Prescriptions Disp Refills HYDROcodone-acetaminophen (NORCO) 5-325 mg per tablet 28 tablet 0 Sig: Take 1-2 tablets by mouth every 6 hours as needed for pain for up to 7 days. Authorizing Provider: RODRI CHAUHAN MD * Telephone Encounter - Shanta Sharmaine Renner - 02/03/2025 12:29 PM EDT Patient calling to check the status of this refill request Please notify patient when RX is sent [phone] * Telephone Encounter - Vandana Mathias LPN - 02/02/2025 2:12 PM EDT Patient has been identified by name and date of : Yes Patient phones for refill(s): Requested Prescriptions Pending Prescriptions Disp Refills HYDROcodone-acetaminophen (NORCO) 5-325 mg per tablet 28 tablet 0 Sig: Take 1-2 tablets by mouth every 6 hours as needed for pain for up to 7 days. Patient should start on February 03, 2025. Date of last office visit in primary care: 01/20/2025 Date of next office visit in primary care: 05/12/2025 Please advise. Thank you. Vandana Mathias LPN. documented in this encounterDayton Children'S Hospital05-20-2025 Telephone encounter Note * Telephone Encounter - Sharmaine Packer - 02/03/2025 12:29 PM EDT Patient calling to check the status of this refill request Please notify patient when RX is sent [phone] [facility]05-19-2025 Telephone encounter Note* Telephone Encounter - Vandana Mathias LPN - 02/02/2025 2:12 PM EDT Patient has been identified by name and date of : Yes Patient phones for refill(s): Requested Prescriptions Pending Prescriptions Disp Refills HYDROcodone-acetaminophen (NORCO) 5-325 mg per tablet 28 tablet 0 Sig: Take 1-2 tablets by mouth every 6 hours as needed for pain for up to 7 days. Patient should start on February 03, 2025. Date of last office visit in primary care: 01/20/2025 Date of next office visit in primary care: 05/12/2025 Please advise. Thank you. Vandana Mathias LPN. [facility]05-16-2025 Evaluation note* Diagnosis Onset Date Resolution Status Admit Date Degenerative disc disease (D DD) of lumbar region with discogenic back pain acute January 30, 2025 2 :06pm Lumbar radiculopathy acute January 30, 2025 2:06pm Lymphedema acute March 11 10:15am 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 March 11, 2025 10:15am [facility] Work Phone: 1(348) 681-188505-16-2025 Evaluation note* Diagnosis Onset Date Resolution Status Admit Date Degenerative disc disease (D DD) of lumbar region with discogenic back pain acute January 30, 025 2:06pm Lumbar radiculopathy acute January 30, 2025 2:06pm Lymphedema acute March 11 10:15am 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 March 11, 2025 10:15am Lymphedema, not elsewhere classified acute May 06 9:04am [facility] Work Phone: 1(629) 781-126105-15-2025 Telephone encounter Note* Telephone Encounter - Ashley Jarrett RN - 01/29/2025 2:42 PM EDT Pt called and is notified of providers message and instructions. Pt voices understanding and said she would talk with the independent living specialist tomorrow. Ashley Jarrett RN [facility]05-15-2025 Miscellaneous Notes* Telephone Encounter - Ashley Jarrett RN - 01/29/2025 2:42 PM EDT Pt called and is notified of providers message and instructions. Pt voices understanding and said she would talk with the independent living specialist tomorrow. Ashley Jarrett RN * Telephone Encounter - Johnson Rm APRN.CNS - 01/29/2025 2:21 PM EDT Noted. Any back exercises prescribed by PT or provider for 6 weeks or more, not general exercises providedby nutrition services manager? If not recommend this. After 6 weeks of HEP or PT should be able to get MRI she is interested in getting. occupational medicine specialist may order imaging, recommend she follow recommendations from specialist at her appt tomorrow. * Telephone Encounter - Ashley Jarrett RN - 01/29/2025 1:57 PM EDT Pt called and is notified of providers message. Pt voices understanding. She states she has been doing home exercises. She states her awning erector has her set up with those, but they are seated sinceshe is hardly able to get up and walk. She reports her first PT appointment is 02/10/25. Pt is seeing the independent living specialist tomorrow 01/30/25. Ashley Jarrett RN * Telephone Encounter - Johnson Rm APRN.CNS - 01/29/2025 12:39 PM EDT Check to see if she has completed home exercises, completed physical therapy or made an appointmentwith the independent living specialist. For her insurance to cover her she will need to have completed home exercise program for PT for 6 weeks or longer documented in this encounterDayton [facility]05-15-2025 Telephone encounter Note * Telephone Encounter - Johnson Rm APRN.CNS - 01/29/2025 2:21 PM EDT Noted. Any back exercises prescribed by PT or provider for 6 weeks or more, not general exercises providedby nutrition services manager? If not recommend this. After 6 weeks of HEP or PT should be able to get MRI she is interested in getting. occupational medicine specialist may order imaging, recommend she follow recommendations from specialist at her appt tomorrow. [facility]05-15-2025 Telephone encounter Note* Telephone Encounter - Ashley Jarrett RN - 01/29/2025 1:57 PM EDT Pt called and is notified of providers message. Pt voices understanding. She states she has been doing home exercises. She states her awning erector has her set up with those, but they are seated sinceshe is hardly able to get up and walk. She reports her first PT appointment is 02/10/25. Pt is seeing the independent living specialist tomorrow 01/30/25. Ashley Jarrett RN [facility]05-15-2025 Telephone encounter Note* Telephone Encounter - Johnson Rm APRN.CNS - 01/29/2025 12:43 PM EDT Closing this note, addressed in another encounter today. Checking to see if she is completed any home exercise program, PT or chiropractic visit. This wouldbe required for at least 6 weeks prior to approval. She was also referred to independent living specialist, unclear if she has made this appointment yet. [facility]05-15-2025 Miscellaneous Notes* Telephone Encounter - Johnson Rm APRN.CNS - 01/29/2025 12:43 PM EDT Closing this note, addressed in another encounter today. Checking to see if she is completed any home exercise program, PT or chiropractic visit. This wouldbe required for at least 6 weeks prior to approval. She was also referred to independent living specialist, unclear if she has made this appointment yet. * Telephone Encounter - Ariana Dubon LPN - 01/28/2025 8:55 AM EDT I am not finding any notes in the referral of MRI. Will route to clerical pool to see if they can help patient. Referral says pending authorization not denied. documented in this encounterDayton [facility] Hospital05-15-2025 Telephone encounter Note * Telephone Encounter - Johnson Rm APRN.CNS - 01/29/2025 12:39 PM EDT Check to see if she has completed home exercises, completed physical therapy or made an appointmentwith the independent living specialist. For her insurance to cover her she will need to have completed home exercise program for PT for 6 weeks or longer [facility]05-14-2025 Telephone encounter Note* Telephone Encounter - Ariana Dubon LPN - 01/28/2025 8:55 AM EDT I am not finding any notes in the referral of MRI. Will route to clerical pool to see if they can help patient. Referral says pending authorization not denied. [facility]05-13-2025 Telephone encounter Note* Telephone Encounter - Rodri Chauhan MD - 01/27/2025 12:11 PM EDT The following approved medication requests have been transmitted electronically. Requested Prescriptions Signed Prescriptions Disp Refills HYDROcodone-acetaminophen (NORCO) 5-325 mg per tablet 28 tablet 0 Sig: Take 1-2 tablets by mouth every 6 hours as needed for pain for up to 7 days. Authorizing Provider: RODRI CHAUHAN MD Noted that last filled 5/6 Saw Zunilda this month. [facility]05-13-2025 Miscellaneous Notes* Telephone Encounter - Rodri Chauhan MD - 01/27/2025 12:11 PM EDT The following approved medication requests have been transmitted electronically. Requested Prescriptions Signed Prescriptions Disp Refills HYDROcodone-acetaminophen (NORCO) 5-325 mg per tablet 28 tablet 0 Sig: Take 1-2 tablets by mouth every 6 hours as needed for pain for up to 7 days. Authorizing Provider: RODRI CHAUHAN MD Noted that last filled 5/6 Saw Zunilda this month. * Telephone Encounter - Vandana Mathias LPN - 01/26/2025 8:06 PM EDT Patient has been identified by name and date of : Yes Patient phones for refill(s): Requested Prescriptions Pending Prescriptions Disp Refills HYDROcodone-acetaminophen (NORCO) 5-325 mg per tablet 28 tablet 0 Sig: Take 1-2 tablets by mouth every 6 hours as needed for pain for up to 7 days. Date of last office visit in primary care: 01/20/2025 Date of next office visit in primary care: 05/12/2025 Please advise. Thank you. Vandana Mathias LPN. documented in this encounterDayton [facility]05-13-2025 Telephone encounter Note * Telephone Encounter - Alize Manjarrez MA - 01/27/2025 9:33 AM EDT Patient has been identified by name and date of : yes Patient phones for refill(s): Requested Prescriptions Pending Prescriptions Disp Refills cyclobenzaprine (FLEXERIL) 10 mg tablet 30 tablet 2 Sig: Take 1 tablet by mouth three times a day as needed for muscle spasm. May make drowsy Date of last office visit in primary care: 01/20/2025 Date of next office visit in primary care: 05/12/2025 Please advise. Thank you. Alize Manjarrez MA. [facility]05-13-2025 Miscellaneous Notes* Telephone Encounter - Alize Manjarrez MA - 01/27/2025 9:33 AM EDT Patient has been identified by name and date of : yes Patient phones for refill(s): Requested Prescriptions Pending Prescriptions Disp Refills cyclobenzaprine (FLEXERIL) 10 mg tablet 30 tablet 2 Sig: Take 1 tablet by mouth three times a day as needed for muscle spasm. May make drowsy Date of last office visit in primary care: 01/20/2025 Date of next office visit in primary care: 05/12/2025 Please advise. Thank you. Alize Manjarrez MA. * Telephone Encounter - Tanya Angelo - 01/27/2025 9:05 AM EDT Prescription Refill Information The patient has been identified by name and date of : Yes Caregiver verified no other encounters exist for this prescription request: Yes Caregiver confirmed with patient/requestor that no other refills are due, in the near future, with this provider at this time: Yes The last office visit in the department: 01-20-25 Does the patient have a future office visit with this provider/department: Yes Requested Prescriptions Pending Prescriptions Disp Refills cyclobenzaprine (FLEXERIL) 10 mg tablet 30 tablet 2 Sig: Take 1 tablet by mouth three times a day as needed for muscle spasm. May make drowsy Tanya Rodrigues January 27, 2025 9:06 AM documented in this encounterDayton [facility]05-13-2025 Telephone encounter Note * Telephone Encounter - Tanya Angelo - 01/27/2025 9:05 AM EDT Prescription Refill Information The patient has been identified by name and date of : Yes Caregiver verified no other encounters exist for this prescription request: Yes Caregiver confirmed with patient/requestor that no other refills are due, in the near future, with this provider at this time: Yes The last office visit in the department: 01-20-25 Does the patient have a future office visit with this provider/department: Yes Requested Prescriptions Pending Prescriptions Disp Refills cyclobenzaprine (FLEXERIL) 10 mg tablet 30 tablet 2 Sig: Take 1 tablet by mouth three times a day as needed for muscle spasm. May make drowsy Tanya Rodrigues January 27, 2025 9:06 AM [facility]05-12-2025 Telephone encounter Note* Telephone Encounter - Vandana Mathias LPN - 01/26/2025 8:06 PM EDT Patient has been identified by name and date of : Yes Patient phones for refill(s): Requested Prescriptions Pending Prescriptions Disp Refills HYDROcodone-acetaminophen (NORCO) 5-325 mg per tablet 28 tablet 0 Sig: Take 1-2 tablets by mouth every 6 hours as needed for pain for up to 7 days. Date of last office visit in primary care: 01/20/2025 Date of next office visit in primary care: 05/12/2025 Please advise. Thank you. Vandana Mathias LPN. [facility]05-06-2025 Instructions* Patient Instructions* Zunilda Jaramillo APRN.CNP - 01/20/2025 3:[address] Colbert Practice: [facility] Address: [address] [place] [address] Specialty: Spine Surgery Orthopedics documented in this encounterDayton [facility] History of Present illness Narrative* Zunilda Jaramillo APRN.SENIOR TRAINER - 01/20/2025 3:40 PM EDT SUBJECTIVE Nanci Rodriguez is a 44 year old female here today for a check up on her medical problems. Chief Complaint Patient presents with: Review Of CPAP Titration: Patient states she does have her CPAP and it is working very well for her. She is getting more sleep. Is requesting a script for a walker HPI Nanci Rodriguez is a 44 year old female. She is an established patient of Rodri Chauhan MD. Shepresents today for follow up. She continues using her CPAP, sleeping better and doing well. Benefits from this. Would like a rolator to help with being more mobile around the house and outside of thehome. Mobility is very limited right now. Back pain is an issue. MRI denied. Consult to spine provider, needs to schedule. Trying to quit smoking. Her medications were reviewed today and her list is now up to date. Medications Current Outpatient Medications Medication Sig cyclobenzaprine (FLEXERIL) 10 mg tablet Take 1 tablet by mouth three times a day as needed for muscle spasm. May make drowsy dulaglutide (TRULICITY) 3 mg/0.5 mL pen injector Inject 3 mg subcutaneously one time a week. Injectdose once per week. Discard Pen After celecoxib (CELEBREX) 400 mg capsule Take 1 capsule by mouth once daily. Take with food metFORMIN (GLUCOPHAGE) 500 mg tablet Take 2 tablets by mouth two times a day with meals. Take one additional 500 mg tab with breakfast or lunch until BS less than 250 furosemide (LASIX) 40 mg tablet Take 1 tablet by mouth once daily. SUMAtriptan (IMITREX) 25 mg tablet Take 1 tablet by mouth at onset of headache and may repeat in 2 hrs if needed. promethazine (PHENERGAN) 12.5 mg tablet Take 1 tablet by mouth four times a day as needed for nausea/vomiting. loratadine (CLARITIN) 10 mg tablet Take 1 tablet by mouth once daily. glimepiride (AMARYL) 4 mg tablet Take 1 tablet by mouth daily with breakfast. Dose change, take onedaily montelukast (SINGULAIR) 10 mg tablet Take 1 tablet by mouth daily at bedtime. albuterol HFA (VENTOLIN HFA) 90 mcg/actuation inhaler Inhale 2 Puffs as instructed every 4 hours asneeded. ferrous sulfate 325 mg (65 mg iron) tablet Take 1 tablet by mouth every Sunday, Sunday, and Sunday. topiramate (TOPAMAX) 100 mg tablet Take 1 tablet by mouth two times a day. lansoprazole (PREVACID) 30 mg capsule Take 1 capsule by mouth daily before breakfast. pramipexole (MIRAPEX) 1.5 mg tablet Take 1 tablet by mouth daily at bedtime. QUEtiapine (SEROQUEL) 25 mg tablet Take 75 mg by mouth daily at bedtime. lamoTRIgine (LAMICTAL) 200 mg tablet Take 1 tablet by mouth two times a day. diphenhydrAMINE (BENADRYL) 25 mg capsule Take 1 capsule by mouth every 6 hours as needed for itching/rash. glucose 4 gram chewable tablet Take 4 tablets by mouth as needed for low blood sugar. Albuterol Sulfate 1.25 mg/3 mL nebulizer solution Use 1 Ampule via nebulizer every 4 hours as needed for wheezing/shortness of breath. ARIPiprazole (ABILIFY) 5 mg tablet Take 1 tablet by mouth once daily. LORazepam (ATIVAN) 1 mg tablet Take 1 tablet by mouth twice daily. As needed. citalopram (CELEXA) 40 mg tablet Take 40 mg by mouth once daily. [facility] lidocaine (LIDODERM) 5 % Apply 1 patch as directed every 24 hours. Remove after 12 hours. HYDROcodone-acetaminophen (NORCO) 5-325 mg per tablet Take 1-2 tablets by mouth every 6 hours as needed for pain for up to 7 days. mometasone-formoterol (DULERA) 50-5 mcg/actuation HFA aerosol inhaler Inhale 1 puff as instructed two times a day. Rinse mouth out after use. CPAP Needs replacement CPAP @ 15 cm of water with humidification. Mask (per patient preference) optional chin strap (if indicated) , filters, tubing, humidifier and lifetime supplies. G47.33 MARIA TERESA on CPAP Lancets Test blood sugar(s) once times daily. Dx: Type 2 DM - Controlled E11.9 Insulin: No blood sugar diagnostic (BLOOD GLUCOSE TEST) test strip Test blood sugar(s) one time daily. Dx: Type2 DM - Controlled E11.9 Insulin: No. Uses True Metrix test strips. dulaglutide (TRULICITY) 0.75 mg/0.5 mL pen injector Inject 0.75 mg subcutaneously one time a week. Inject dose once per week. Discard Pen After (Patient not taking: Reported on 01/20/2025) benzonatate (TESSALON PERLE) 100 mg capsule Take 1-2 capsules by mouth three times a day as needed. silver sulfADIAZINE (SILVADENE) 1 % cream Apply 1 application to affected area once daily. (Patientnot taking: Reported on 12/12/2024) Codeanywhere LITE monitoring kit USE DIRECTED CPAP Needs lifetime supplies (mask, hoses, headgear, filters, water chamber) G47.33 (already has CPAP) Nebulizer NEBULIZER and Supplies FOR HOME USE. DX: J45.40 No current facility-administered medications for this visit. ALLERGIES Allergen Reactions Penicillins Itching, Hives Melatonin Rash, Hives Tramadol Other: See Comments tic like movements Wellbutrin [Bupropi* Intolerance Dry mouth--severe, intolerable ACTIVE PROBLEM LIST Fatty Liver - 10/20/2024 Thrombocytopenia - 10/20/2024 Anemia - 10/20/2024 Cpap (Continuous Positive Airway Pressure) Dependence Comment: [facility] 3 month rental approved through [facility] 04/28/24 - 07/26/24 Obesity, Class III, BMI >= 40 - 09/18/2023 Hyperlipidemia With Target Ldl Less Than 100 - 03/16/2020 Restless Leg Syndrome - 03/16/2020 Atypical Chest Pain - 02/28/2018 Comment: Abnormal stress / SPECT per [facility] notes. Normal coronaries on heart catheterization [facility] 02/26/2018 Dr. Brooks Morbid Obesity (Hcc) - 09/27/2016 Umbilical Hernia Without Obstruction Or Gangrene - 09/22/2016 Diabetes Mellitus Type 2, Controlled, Without Complications ([facility]) - 12/30/2015 Lumbar Spondylosis - 02/17/2013 Ddd (Degenerative Disc Disease), Lumbar - 02/17/2013 Chronic Radicular Low Back Pain - 07/17/2012 Papanicolaou Smear of Cervix With Low Grade Squamous Intraepithelial Lesion ([facility]gs[facility]) - 12/26/2011 Moderate depressed bipolar I disorder (HCC) - 12/26/2011 Migraine Without Aura - 03/29/2006 Asthma (Hcc) Allergic Rhinitis Social History Tobacco Use Smoking status: Some Days Current packs/day: 0.25 Average packs/day: 0.3 packs/day for 26.4 years (6.6 ttl pk-yrs) Types: Cigarettes Start date: 08/17/1998 Smokeless tobacco: Never Vaping Use Vaping status: Former Quit date: 12/13/2023 Substance Use Topics Alcohol use: Never Drug use: No Comment: Past history of Marjiuana use Review of Systems Respiratory: Negative. Cardiovascular: Negative. OBJECTIVE BP 128/74 Pulse 98 Wt 375 lb 10.6 oz (170.4kg) SpO2 99% LMP 10/13/2024 Physical Exam Vitals and nursing note reviewed. [...] memory normal. Judgment: Judgment normal. ASSESSMENT/PLAN: 1. MARIA TERESA on CPAP - ICD9: 327.23, ICD10: G47.33 (primary diagnosis) Compliant with PAP and benefits from its use. 2. Rib pain - ICD9: 786.50, ICD10: R07.81 - LIDOCAINE 5 % TOPICAL PATCH 3. Chronic midline low back pain with bilateral sciatica - ICD9: 724.2, 724.3, 338.29, ICD10: M54.41, M54.42, G89.29 - HYDROCODONE 5 MG-ACETAMINOPHEN 325 MG TABLET - ROLLATOR WALKER - CONSULT TO [facility] 4. Chronic radicular low back pain - ICD9: 724.4, 338.29, ICD10: M54.16, G89.29 - ROLLATOR WALKER - CONSULT TO [facility] 5. General weakness - ICD9: 780.79, ICD10: R53.1 - ROLLATOR WALKER 6. Gait instability - ICD9: 781.2, ICD10: R26.81 - ROLLATOR WALKER 7. Intermittent asthma without complication, unspecified asthma severity (HCC) - ICD9: 493.90, ICD10: J45.20 - Mild intermittent asthma stable - Continue current medications - Avoidance of triggers recommended - DULERA 50 MCG-5 MCG/ACTUATION HFA AEROSOL INHALER 8. Hyperlipidemia with target LDL less than 100 - ICD9: 272.4, ICD10: E78.5 - Control undetermined, due for labs - Counseled on healthy diet and regular exercise - LIPID PANEL, NONFASTING Portions of this note have been entered by ancillary staff. I have reviewed and when necessary edited, so that they are an adequate record of my encounter with this patient Please note that parts of this document were created using voice recognition software and therefore may contain grammatical errors. Patient verbalizes understanding of instructions from today's visit and in agreement with treatmentplan. Questions answered. Agrees to call the office [...] as well as compliance with taking medications. Age- appropriate health preventative measures were discussed.. Return if symptoms worsen or fail to improve, for Keep next scheduled appointment.. Zunilda Jaramillo APRN-NARENDRA documented in this encounterDayton [facility]05-[facility]25 NoteHNO ID: [id number] Author: ZUNILDA JARAMILLO APRN.CNP Service: ? Author Type: Nurse Practitioner Type: Progress Notes Filed: 01/20/2025 16:03 Note Text: SUBJECTIVE Nanci Rodriguez is a 44 year old female here today for a check up on her medical problems. Chief Complaint Patient presents with: Review Of CPAP Titration: Patient states she does have her CPAP and it is working very well for her. She is getting more sleep. Is requesting a script for a walker HPI Nanci Rodriguez is a 44 year old female. She is an established patient of Rodri Chauhan MD. She presents today for follow up. She continues using her CPAP, sleeping better and doing well. Benefits from this. Would like a rolator to help with being more mobile around the house and outside of the home. Mobility is very limited right now. Back pain is an issue. MRI denied. Consult to spine provider, needs to schedule. Trying to quit smoking. Her medications were reviewed today and her list is now up to date. Medications Current Outpatient Medications Medication Sig cyclobenzaprine (FLEXERIL) 10 mg tablet Take 1 tablet by mouth three times a day as needed for muscle spasm. May make drowsy dulaglutide (TRULICITY) 3 mg/0.5 mL pen injector Inject 3 mg subcutaneously one time a week. Inject dose once per week. Discard Pen After celecoxib (CELEBREX) 400 mg capsule Take 1 capsule by mouth once daily. Take with food metFORMIN (GLUCOPHAGE) 500 mg tablet Take 2 tablets by mouth two times a day with meals. Take one additional 500 mg tab with breakfast or lunch until BS less than 250 furosemide (LASIX) 40 mg tablet Take 1 tablet by mouth once daily. SUMAtriptan (IMITREX) 25 mg tablet Take 1 tablet by mouth at onset of headache and may repeat in 2 hrs if needed. promethazine (PHENERGAN) 12.5 mg tablet Take 1 tablet by mouth four times a day as needed for nausea/vomiting. loratadine (CLARITIN) 10 mg tablet Take 1 tablet by mouth once daily. glimepiride (AMARYL) 4 mg tablet Take 1 tablet by mouth daily with breakfast. Dose change, take one daily montelukast (SINGULAIR) 10 mg tablet Take 1 tablet by mouth daily at bedtime. albuterol HFA (VENTOLIN HFA) 90 mcg/actuation inhaler Inhale 2 Puffs as instructed every 4 hours as needed. ferrous sulfate 325 mg (65 mg iron) tablet Take 1 tablet by mouth every Sunday, Sunday, and Sunday. topiramate (TOPAMAX) 100 mg tablet Take 1 tablet by mouth two times a day. lansoprazole (PREVACID) 30 mg capsule Take 1 capsule by mouth daily before breakfast. pramipexole (MIRAPEX) 1.5 mg tablet Take 1 tablet by mouth daily at bedtime. QUEtiapine (SEROQUEL) 25 mg tablet Take 75 mg by mouth daily at bedtime. lamoTRIgine (LAMICTAL) 200 mg tablet Take 1 tablet by mouth two times a day. diphenhydrAMINE (BENADRYL) 25 mg capsule Take 1 capsule by mouth every 6 hours as needed for itching/rash. glucose 4 gram chewable tablet Take 4 tablets by mouth as needed for low blood sugar. Albuterol Sulfate 1.25 mg/3 mL nebulizer solution Use 1 Ampule via nebulizer every 4 hours as needed for wheezing/shortness of breath. ARIPiprazole (ABILIFY) 5 mg tablet Take 1 tablet by mouth once daily. LORazepam (ATIVAN) 1 mg tablet Take 1 tablet by mouth twice daily. As needed. citalopram (CELEXA) 40 mg tablet Take 40 mg by mouth once daily. [facility] lidocaine (LIDODERM) 5 % Apply 1 patch as directed every 24 hours. Remove after 12 hours. HYDROcodone-acetaminophen (NORCO) 5-325 mg per tablet Take 1-2 tablets by mouth every 6 hours as needed for pain for up to 7 days. mometasone-formoterol (DULERA) 50-5 mcg/actuation HFA aerosol inhaler Inhale 1 puff as instructed two times a day. Rinse mouth out after use. CPAP Needs replacement CPAP @ 15 cm of water with humidification. Mask (per patient preference) optional chin strap (if indicated) , filters, tubing, humidifier and lifetime supplies. G47.33 MARIA TERESA on CPAP Lancets Test blood sugar(s) once times daily. Dx: Type 2 DM - Controlled E11.9 Insulin: No blood sugar diagnostic (BLOOD GLUCOSE TEST) test strip Test blood sugar(s) one time daily. Dx: Type 2 DM - Controlled E11.9 Insulin: No. Uses True Metrix test strips. dulaglutide (TRULICITY) 0.75 mg/0.5 mL pen injector Inject 0.75 mg subcutaneously one time a week. Inject dose once per week. Discard Pen After (Patient not taking: Reported on 01/20/2025) benzonatate (TESSALON PERLE) 100 mg capsule Take 1-2 capsules by mouth three times a day as needed. silver sulfADIAZINE (SILVADENE) 1 % cream Apply 1 application to affected area once daily. (Patient not taking: Reported on 12/12/2024) [employer] LITE monitoring kit USE DIRECTED CPAP Needs lifetime supplies (mask, hoses, headgear, filters, water chamber) G47.33 (already has CPAP) Nebulizer NEBULIZER and Supplies FOR HOME USE. DX: J45.40 No current facility-administered medications for this visit. ALLERGIES Allergen Reactions (more content not included)...[facility]04-29-2025 Telephone encounter Note* Telephone Encounter - Helen Sullivan RN - 01/13/2025 3:08 PM EDT Pt calling in checking on Hydrocodone refill. Pt needs by this the . She was wondering why her Flexeril was sent in but not her hydrocodone? Explained probably because it was too early. Will add note to pended script do not start until 01/15/25. Next appt is this Tuesday 01/16 with Zunilda Jaramillo. [facility]04-29-2025 Miscellaneous Notes* Telephone Encounter - Helen Sullivan RN - 01/13/2025 3:08 PM EDT Pt calling in checking on Hydrocodone refill. Pt needs by this the . She was wondering why her Flexeril was sent in but not her hydrocodone? Explained probably because it was too early. Will add note to pended script do not start until 01/15/25. Next appt is this Tuesday 01/16 with Zunilda Jaramillo. * Telephone Encounter - Vandana Mathias LPN - 01/12/2025 12:35 PM EDT Patient has been identified by name and date of : Yes Patient phones for refill(s): Requested Prescriptions Pending Prescriptions Disp Refills HYDROcodone-acetaminophen (NORCO) 5-325 mg per tablet 28 tablet 0 Sig: Take 1-2 tablets by mouth every 6 hours as needed for pain for up to 7 days. Date of last office visit in primary care: 01/01/2025 Date of next office visit in primary care: 01/16/2025 Please advise. Thank you. Vandana Mathias LPN. documented in this encounterDayton [facility]04-28-2025 Telephone encounter Note * Telephone Encounter - Vandana Mathias LPN - 01/12/2025 5:46 PM EDT Patient has been identified by name and date of : Yes Patient phones for refill(s): Requested Prescriptions Pending Prescriptions Disp Refills cyclobenzaprine (FLEXERIL) 10 mg tablet 30 tablet 2 Sig: Take 1 tablet by mouth three times a day as needed for muscle spasm. May make drowsy Date of last office visit in primary care: 01/01/2025 Date of next office visit in primary care: 01/16/2025 Please advise. Thank you. Vandana Mathias LPN. [facility]04-28-2025 Miscellaneous Notes* Telephone Encounter - Vandana Mathias LPN - 01/12/2025 5:46 PM EDT Patient has been identified by name and date of : Yes Patient phones for refill(s): Requested Prescriptions Pending Prescriptions Disp Refills cyclobenzaprine (FLEXERIL) 10 mg tablet 30 tablet 2 Sig: Take 1 tablet by mouth three times a day as needed for muscle spasm. May make drowsy Date of last office visit in primary care: 01/01/2025 Date of next office visit in primary care: 01/16/2025 Please advise. Thank you. Vandana Mathias LPN. documented in this encounterDayton [facility]04-28-[facility]25 Telephone encounter Note * Telephone Encounter - Vandana Mathias LPN - 01/12/2025 12:35 PM EDT Patient has been identified by name and date of : Yes Patient phones for refill(s): Requested Prescriptions Pending Prescriptions Disp Refills HYDROcodone-acetaminophen (NORCO) 5-325 mg per tablet 28 tablet 0 Sig: Take 1-2 tablets by mouth every 6 hours as needed for pain for up to 7 days. Date of last office visit in primary care: 01/01/2025 Date of next office visit in primary care: 01/16/2025 Please advise. Thank you. Vandana Mathias LPN. [facility]04-18-2025 Telephone encounter Note* Telephone Encounter - Jessica Mason LPN - 01/02/2025 10:05 AM EDT Patient calling asking to have face to face notes faxed to [employer] at [phone]. Printed and faxedas requested. [facility]04-18-2025 Miscellaneous Notes* Telephone Encounter - Jessica Mason LPN - 01/02/2025 10:05 AM EDT Patient calling asking to have face to face notes faxed to [employer] at [phone]. Printed and faxedas requested. documented in this encounterDayton Children'S Hospital04-17-2025 Instructions* Patient Instructions* Johnson Rm APRN.SENIOR SHAREPOINT ARCHITECT - 01/01/2025 3:38 PM EDT An order will be sent to [employer] for your CPAP equipment. Please follow up with them tomorrow to ensure you receive the correct mask. Your next refill for Trulicity will be at 3 mg; continue using it as directed and monitor your blood sugars at home, aiming to keep them around 150. Let us know if you do not feel weell with the increased dose An A1c check is scheduled for the end of this month (around the ); no fasting is needed before this test. Your MRI for your back is now scheduled for January 31 at the hospital; please attend this appointment as planned. Continue taking your current back pain medications (increased Celebrex, muscle relaxers, and hydrocodone for breakthrough pain). If you need more hydrocodone next week for breakthrough pain, call in for a refill instead of coming back in. Continue with your therapy appointment on Sunday at [facility]. Your chart has been sent to your doctor regarding the low platelet count for further review. documented in this encounterDayton Children'S Hospital04-17-2025 NoteHNO ID: [id number] Author: JOHNSON RM APRN.YOAV Service: ? Author Type: Nurse Specialist Type: Progress Notes Filed: 01/01/2025 15:54 Note Text: Subjective Patient ID: Nanci is a 44 year old female who presents for CPAP Supplies (Reevaluation for need. Needs script and supplies. Patient uses [employer]). HPI Returns for a follow-up visit today. She notes need for CPAP, reports that this was removed due to not using when she received the wrong size mask and could not get it replaced in a timely fashion. Sleep Apnea: - Reports CPAP machine was repossessed by insurance due to non-use. -Sleep study was completed in 2014 at [facility] and it showed severe MARIA TERESA with oxygen desaturations. She has previously used CPAP consistently and benefited from its use. She would like to resume this. - Currently reports severe insomnia, sleeping only 2 hours per night without CPAP. - Takes 75 mg of Seroquel at night, which induces sleep for 2-3 hours before experiencing restlessness. - Previously achieved 4-6 hours of sleep per night with CPAP. Back Pain: - Severe back pain, reports unable to walk without assistance. - Pain exacerbated by standing upright; requires walking with a tilted posture. - Uses nguyen for support when ambulating at home. - Increased Celebrex dosage and muscle relaxants provide some relief. - Hydrocodone provides moderate relief, allowing for increased mobility. - Physical therapy scheduled to start on Sunday at [facility]. - MRI scheduled for 01/31 at the [facility] due to transportation limitations, states can not go out of town due to mother being ill with cancer and assisting her as well. Diabetes Mellitus: - A1c was 9.2%. - Currently taking Trulicity 1.5 mg, with good tolerance and no adverse effects. - Blood glucose levels typically around 150 mg/dL, occasionally in the 200s. - No episodes of hypoglycemia reported. - Recent weight measured at 376 lbs, consistent with previous measurements. - Previous weight gain attributed to steroid use for sciatica. Thrombocytopenia: - Recent platelet count was 74 x109/L. - No follow-up appointment scheduled with avionics integration engineer Dr. Driscoll. ROS Constitutional: (+) fatigue, (+) sleep disturbance Musculoskeletal: (+) low back pain, (+) right leg pain, (+) left leg pain Neurological: (-) numbness/tingling Objective BP 137/87 Pulse 112 Resp 16 Wt (!) 170.6 kg (376 lb 1.7 oz) LMP 10/13/2024 (Exact Date) BMI 67.74 kg/m? Physical Exam Vitals and nursing note reviewed. Constitutional: Appearance: Normal appearance. HENT: Head: Normocephalic and atraumatic. Eyes: Conjunctiva/sclera: Conjunctivae normal. Cardiovascular: Rate and Rhythm: Normal rate. Pulmonary: Effort: Pulmonary effort is normal. Musculoskeletal: Lumbar back: Tenderness present. Decreased range of motion. Comments: tenderness across low back and radiating down both legs, sensation and motion preserved Neurological: General: No focal deficit present. Mental Status: She is alert and oriented to person, place, and time. 1. MARIA TERESA on CPAP (G47.33) She has a history of severe sleep apnea and oxygen desaturations which have previously been significantly helped with CPAP use. She would like to resume dose. I endorsed resuming treatment of her MARIA TERESA and oxygen desaturation. She reports insurance indicated non-compliance of use previously. She reports this was secondary to incorrect mask delivery which she could not use and it was not replaced in a timely fashion. - Currently experiencing severe sleep disruption, averaging 2 hours of sleep per night; previously achieved 4-6 hours with CPAP. - Previously ordered CPAP machine through [employer];will use this DME and instructed Nanci Rodriguez to follow up with supplier tomorrow to expedite delivery. 2. 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 Radiculopathy of lumbar region (M54.16) - Severe pain limiting ambulation; requires support to walk. - Increased Celebrex dosage and muscle relaxants provide some relief. - Hydrocodone effective in improving mobility; continue current dosage. - MRI scheduled for 01/31 at local hospital to evaluate underlying pathology. - Initiated physical therapy at [facility] starting Sunday. - Avoided prescribing prednisone due to potential exacerbation of hyperglycemia. 4. Uncontrolled type 2 diabetes mellitus with hyperglycemia (HCC) (E11.65) - Hemoglobin A1c at 9.2%, indicating poor glycemic control. - Currently on Trulicity 1.5 mg; no adverse effects reported. - Blood glucose levels generally around 150 mg/dL, with occasional readings in the 200s. - Increased Trulicity dosage to 3 mg; next refill to reflect new dosage. - Scheduled for A1c re-evaluation at the end of the month. 5. Anemia D64.9 - Advised to avoid aspirin due to thrombocytopenia (platelet count at 74 x 109/L). - Recent labs sh (more content not included)...[facility] 01-01-2025 History of Present illness Narrative* Johnson Rm, MARIJA.SENIOR SHAREPOINT ARCHITECT - 01/01/2025 3:18 PM EDT Subjective Patient ID: Nanci is a 44 year old female who presents for CPAP Supplies (Reevaluation for need. Needs script and supplies. Patient uses [facility]). HPI Returns for a follow-up visit today. She notes need for CPAP, reports that this was removed due to not using when she received the wrong size mask and could not get it replaced in a timely fashion. Sleep Apnea: - Reports CPAP machine was repossessed by insurance due to non-use. -Sleep study was completed in 2014 at [facility] and it showed severe MARIA TERESA with oxygen desaturations. She has previously used CPAP consistently and benefited from its use. She would like to resume this. - Currently reports severe insomnia, sleeping only 2 hours per night without CPAP. - Takes 75 mg of Seroquel at night, which induces sleep for 2-3 hours before experiencing restlessness. - Previously achieved 4-6 hours of sleep per night with CPAP. Back Pain: - Severe back pain, reports unable to walk without assistance. - Pain exacerbated by standing upright; requires walking with a tilted posture. - Uses nguyen for support when ambulating at home. - Increased Celebrex dosage and muscle relaxants provide some relief. - Hydrocodone provides moderate relief, allowing for increased mobility. - Physical therapy scheduled to start on Sunday at [facility]. - MRI scheduled for 01/31 at the [facility] due to transportation limitations, states can not go out of town due to mother being ill with cancer and assisting her as well. Diabetes Mellitus: - A1c was 9.2%. - Currently taking Trulicity 1.5 mg, with good tolerance and no adverse effects. - Blood glucose levels typically around 150 mg/dL, occasionally in the 200s. - No episodes of hypoglycemia reported. - Recent weight measured at 376 lbs, consistent with previous measurements. - Previous weight gain attributed to steroid use for sciatica. Thrombocytopenia: - Recent platelet count was 74 x10^9/L. - No follow-up appointment scheduled with avionics integration engineer Dr. Driscoll. ROS Constitutional: (+) fatigue, (+) sleep disturbance Musculoskeletal: (+) low back pain, (+) right leg pain, (+) left leg pain Neurological: (-) numbness/tingling Objective BP 137/87 Pulse 112 Resp 16 Wt (!) 170.6 kg (376 lb 1.7 oz) LMP 10/13/2024 (Exact Date) BMI 67.74 kg/m Physical Exam Vitals and nursing note reviewed. Constitutional: Appearance: Normal appearance. HENT: Head: Normocephalic and atraumatic. Eyes: Conjunctiva/sclera: Conjunctivae normal. Cardiovascular: Rate and Rhythm: Normal rate. Pulmonary: Effort: Pulmonary effort is normal. Musculoskeletal: Lumbar back: Tenderness present. Decreased range of motion. Comments: tenderness across low back and radiating down both legs, sensation and motion preserved Neurological: General: No focal deficit present. Mental Status: She is alert and oriented to person, place, and time. 1. MARIA TERESA on CPAP (G47.33) She has a history of severe sleep apnea and oxygen desaturations which have previously been significantly helped with CPAP use. She would like to resume dose. I endorsed resuming treatment of her OSAand oxygen desaturation. She reports insurance indicated non-compliance of use previously. She reports this was secondary toincorrect mask delivery which she could not use and it was not replaced in a timely fashion. - Currently experiencing severe sleep disruption, averaging 2 hours of sleep per night; previously achieved 4-6 hours with CPAP. - Previously ordered CPAP machine through [employer];will use this DME and instructed Nanci Rodriguez to follow up with supplier tomorrow to expedite delivery. 2. 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 Radiculopathy of lumbar region (M54.16) - Severe pain limiting ambulation; requires support to walk. - Increased Celebrex dosage and muscle relaxants provide some relief. - Hydrocodone effective in improving mobility; continue current dosage. - MRI scheduled for 01/31 at local hospital to evaluate underlying pathology. - Initiated physical therapy at [facility] starting Sunday. - Avoided prescribing prednisone due to potential exacerbation of hyperglycemia. 4. Uncontrolled type 2 diabetes mellitus with hyperglycemia (HCC) (E11.65) - Hemoglobin A1c at 9.2%, indicating poor glycemic control. - Currently on Trulicity 1.5 mg; no adverse effects reported. - Blood glucose levels generally around 150 mg/dL, with occasional readings in the 200s. - Increased Trulicity dosage to 3 mg; next refill to reflect new dosage. - Scheduled for A1c re-evaluation at the end of the month. 5. Anemia D64.9 - Advised to avoid aspirin due to thrombocytopenia (platelet count at 74 x 10^9/L). - Recent labs show normal B12 and ferritin levels, but low iron and transferrin. - Will communicated with Dr. Driscoll for follow up Johnson Rm APRN.SENIOR SHAREPOINT ARCHITECT Medical Decision Making: Problems: Moderate: 1+ chronic illnesses with change Data: Unique test(s) ordered: 1 Risk: Moderate: Drug management Medical Decision Making Level: 4 - Moderate documented in this encounterDay[facility] History of Present illness Narrative* Johnson Rm APRN.CNS - 12/23/2024 1:20 PM EDT Subjective Patient ID: Nanci is a 44 year old female who presents for [facility] ER follow-up . HPI She was seen in [facility] for acute midline low back pain, improved with treatment with prednisone and cyclobenzaprine11/13/2024 since last seen in . Presents for ER follow up visit. She was seen at [facility] ER 12/15/2024 for severe acute on chronic back pain, different that her usual back pain. Lumbar XR negative for cute findings. Today reports Low Back Pain: - Severe, constant low back pain x3 weeks, radiating to both legs, more pronounced in the right leg. - Pain localized to the lower back, described as paralyzing when it radiates to the spine, no actual paralysis noted. No alarm symptoms reported - Aggravated by walking, prolonged sitting, and standing; unable to lie on back or left side. - Slight relief when lying on the right side. - Requires assistance to roll over in bed due to pain. - Pain onset possibly related to household activities; denies heavy lifting. - Recent ER visit for pain management; received [place], now taking OTC ibuprofen 220 mg, 2-3 [id number], and Tylenol alternately Q6H with minimal relief. - Currently taking Celebrex daily and cyclobenzaprine; reports cyclobenzaprine is ineffective. - Previous X-ray performed; no MRI done. No independent living specialist. - History of physical therapy for back pain in [id number]. ROS Constitutional: (+) fatigue, (+) sleep disturbance Musculoskeletal: (+) low back pain, (+) right leg pain, (+) left leg pain Neurological: (-) numbness/tingling Objective BP 124/84 (BP Site: Right Arm, BP Position: Sitting, BP Cuff Size: Large Adult) Pulse 116 Temp 36.4 C (97.6 F) (Temporal) Wt (!) 171.6 kg (378 lb 5 oz) LMP 10/13/2024 (Exact Date) BMI 68.13kg/m Physical Exam Vitals and nursing note reviewed. Constitutional: Appearance: Normal appearance. HENT: Head: Normocephalic and atraumatic. Eyes: Conjunctiva/sclera: Conjunctivae normal. Cardiovascular: Rate and Rhythm: Normal rate. Pulmonary: Effort: Pulmonary effort is normal. Musculoskeletal: Lumbar back: Tenderness present. Decreased range of motion. Comments: tenderness across low back and radiating down both legs, sensation and motion preserved Neurological: General: No focal deficit present. Mental Status: She is alert and oriented to person, place, and time. 1. Chronic midline low back pain, unspecified whether sciatica present (M54.50) 2. Radiculopathy of lumbar region (M54.16) 3. Lumbago (M54.50) - Severe, constant low back pain radiating to both legs x 3 weeks, more pronounced on the right side, with associated paroxysmal episodes of pain exacerbated by walking, prolonged sitting, and standing, with minimal relief when lying on the right side. - Pain has been ongoing for three weeks, with increasing severity; initial management with [place] provided temporary relief, but current use of OTC ibuprofen and Tylenol is ineffective. - Physical examination reveals tenderness in the lower back, particularly on the sides, with less severe pain in the midline; no numbness or tingling reported. - Increased Celebrex dosage to 400 mg daily -can take two 200 mg until gone. - Prescribed a week's supply of [place] for severe pain management, with instructions to use as needed, preferably at bedtime due to sedative effects. Discussed OIC and remedy,plans to use senna - Ordered MRI of the lumbar spine to further evaluate underlying pathology; [facility]. - Advised patient to seek immediate ER evaluation if experiencing loss of bowel or bladder function, or if unable to ambulate due to severe pain. - Discussed potential referral to a independent living specialist based on MRI findings. - Patient has a current prescription for cyclobenzaprine; advised to continue as needed. PT consult placed - Patient understands and agrees with the treatment plan. Has one month follow up visit scheduled. Johnson Rm APRN.SENIOR SHAREPOINT ARCHITECT Medical Decision Making: Problems: Moderate: 1+ chronic illnesses with change Data: Unique source(s) for external note(s) reviewed: 1 Unique test result(s) reviewed: 2 Unique test(s) ordered: 1 Risk: Moderate: Drug management Medical Decision Making Level: 4 - Moderate documented in this encounterDayton [facility]04-08-[facility] NoteHNO ID: [id number] Author: JOHNSON RM APRN.YOAV Service: ? Author Type: Nurse Specialist Type: Progress Notes Filed: 12/23/2024 14:00 Note Text: Subjective Patient ID: Nanci is a 44 year old female who presents for [facility] ER follow-up . HPI She was seen in [facility] for acute midline low back pain, improved with treatment with prednisone and cyclobenzaprine11/13/2024 since last seen in . Presents for ER follow up visit. She was seen at [facility] ER 12/15/2024 for severe acute on chronic back pain, different that her usual back pain. Lumbar XR negative for cute findings. Today reports Low Back Pain: - Severe, constant low back pain x3 weeks, radiating to both legs, more pronounced in the right leg. - Pain localized to the lower back, described as paralyzing when it radiates to the spine, no actual paralysis noted. No alarm symptoms reported - Aggravated by walking, prolonged sitting, and standing; unable to lie on back or left side. - Slight relief when lying on the right side. - Requires assistance to roll over in bed due to pain. - Pain onset possibly related to household activities; denies heavy lifting. - Recent ER visit for pain management; received [place], now taking OTC ibuprofen 220 mg, 2-3 tablets Q6H, and Tylenol alternately Q6H with minimal relief. - Currently taking Celebrex daily and cyclobenzaprine; reports cyclobenzaprine is ineffective. - Previous X-ray performed; no MRI done. No independent living specialist. - History of physical therapy for back pain in [id number]. ROS Constitutional: (+) fatigue, (+) sleep disturbance Musculoskeletal: (+) low back pain, (+) right leg pain, (+) left leg pain Neurological: (-) numbness/tingling Objective BP 124/84 (BP Site: Right Arm, BP Position: Sitting, BP Cuff Size: Large Adult) Pulse 116 Temp 36.4 ?C (97.6 ?F) (Temporal) Wt (!) 171.6 kg (378 lb 5 oz) LMP 10/13/2024 (Exact Date) BMI 68.13 kg/m? Physical Exam Vitals and nursing note reviewed. Constitutional: Appearance: Normal appearance. HENT: Head: Normocephalic and atraumatic. Eyes: Conjunctiva/sclera: Conjunctivae normal. Cardiovascular: Rate and Rhythm: Normal rate. Pulmonary: Effort: Pulmonary effort is normal. Musculoskeletal: Lumbar back: Tenderness present. Decreased range of motion. Comments: tenderness across low back and radiating down both legs, sensation and motion preserved Neurological: General: No focal deficit present. Mental Status: She is alert and oriented to person, place, and time. 1. Chronic midline low back pain, unspecified whether sciatica present (M54.50) 2. Radiculopathy of lumbar region (M54.16) 3. Lumbago (M54.50) - Severe, constant low back pain radiating to both legs x 3 weeks, more pronounced on the right side, with associated paroxysmal episodes of pain exacerbated by walking, prolonged sitting, and standing, with minimal relief when lying on the right side. - Pain has been ongoing for three weeks, with increasing severity; initial management with [place] provided temporary relief, but current use of OTC ibuprofen and Tylenol is ineffective. - Physical examination reveals tenderness in the lower back, particularly on the sides, with less severe pain in the midline; no numbness or tingling reported. - Increased Celebrex dosage to 400 mg daily -can take two 200 mg until gone. - Prescribed a week's supply of [place] for severe pain management, with instructions to use as needed, preferably at bedtime due to sedative effects. Discussed OIC and remedy,plans to use senna - Ordered MRI of the lumbar spine to further evaluate underlying pathology; [facility]. - Advised patient to seek immediate ER evaluation if experiencing loss of bowel or bladder function, or if unable to ambulate due to severe pain. - Discussed potential referral to a independent living specialist based on MRI findings. - Patient has a current prescription for cyclobenzaprine; advised to continue as needed. PT consult placed - Patient understands and agrees with the treatment plan. Has one month follow up visit scheduled. Johnson Rm APRN.SENIOR SHAREPOINT ARCHITECT Medical Decision Making: Problems: Moderate: 1+ chronic illnesses with change Data: Unique source(s) for external note(s) reviewed: 1 Unique test result(s) reviewed: 2 Unique test(s) ordered: 1 Risk: Moderate: Drug management Medical Decision Making Level: 4 - [facility]erateL[facility] Telephone encounter Note* Telephone Encounter - [place] Qian Rodrigues - 12/17/2024 1:36 PM EDT Prescription Refill Information The patient has been identified by name and date of : Yes Caregiver verified no other encounters exist for this prescription request: Yes Caregiver confirmed with patient/requestor that no other refills are due, in the near future, with this provider at this time: Yes The last office visit in the department: 12/10/24 Does the patient have a future office visit with this provider/department: Yes Requested Prescriptions Pending Prescriptions Disp Refills Lancets 100 Each 11 Sig: Test blood sugar(s) once times daily. Dx: Type 2 DM - Controlled E11.9 Insulin: Nicki Bear [facility] December 17, 2024 1:37 PM [facility]04-02-2025 Miscellaneous Notes* Telephone Encounter - [place] Qian Rodrigues - 12/17/2024 1:36 PM EDT Prescription Refill Information The patient has been identified by name and date of : Yes Caregiver verified no other encounters exist for this prescription request: Yes Caregiver confirmed with patient/requestor that no other refills are due, in the near future, with this provider at this time: Yes The last office visit in the department: 12/10/24 Does the patient have a future office visit with this provider/department: Yes Requested Prescriptions Pending Prescriptions Disp Refills Lancets 100 Each 11 Sig: Test blood sugar(s) once times daily. Dx: Type 2 DM - Controlled E11.9 Insulin: No Qian Bear [facility] December 17, 2024 1:37 PM documented in this encounterDayton Children'S [facility]03-31-2025 Discharge summary [facility] Medical Records Department [address] [place] [address] Emergency Department Summary 12/15/24 MR#: [id number] Acct: [id number] Name: NANCI RODRIGUEZ Rep #:[id number] : 1980 44 From: Ar[facility]io Bundy MD PCP: Dr. Rodri Chauhan MD Status:RE G ER Location: ED HPI History of Present Illness Chief Complaint: Back Informant: patient Narrative Narrative: 44-year-old male presenting with back pain gradual in onset for the past week orso. All the way across her low back, no radiation into her legs, no bowel or bladder dysfunction, no perineal paresthesias/anesthesia. Denies any injury, overuse, repetitive movements that she can remember. She states she has a history of low back pain that is chronic and she associates with her degenerative disc disease, sometimes with and sometimes without sciatica, and she states she started with that sciatica pain at the beginning of this past 1or 2 weeks ago, and was prescribed some prednisone which took the sciatica away but now this pain is severe and unlike her chronic pain. No abdominal pain with this, fevers, chills, or other systemic symptoms. Hurts more to move and better to rest. States she has chronic asymmetric lymphedema worse on the right leg, uses compression stockings states that she will need them for life, no changes there. History of wounds that are not currently present everything healed. [facility] Medical History Open wound History of steroid therapy Diabetes Easy bruising Restless legs Migraine headache Wears glasses Cracked tooth Difficulty chewing GERD (gastroesophageal reflux disease) Electronic cigarette use CPAP (continuous positive airway pressure) dependence Shortness of breath on exertion History of stress test Anxiety Sleep apnea COPD (chronic obstructive pulmonary disease) Asthma Obesity Diabetes Bipolar 1 disorder Home Medications ?Medication ?Instructions ?Recorded ?Last Taken ?Type loratadine 10 mg tablet (Allergy 10 mg PO DAILY Allerg ies 07/07/13 11/07/19 History Relief (loratadine)) lorazepam 1 mg tablet 1 mg PO BID PRN PRN Anxiety 12/11/13 06/26/19 History montelukast 10 mg tablet 10 mg PO QHS 08/10/16 History sumatriptan succinate 25 mg tablet 25 mg PO .X1 PRN IA N Migraine 08/10/16 06/30/19 History (Imitrex) Symptoms aripiprazole 2 mg tablet 5 mg PO QHS 07/01/19 3 History citalopram 40 mg tablet 40 mg PO DAILY 07/01/1909/17 History lamotrigine 200 mg tablet 200 mg PO BID 07/01/1909/28 History metformin 500 mg tablet 1,000 mg PO BID dm 07/01/19 11/07/19 History naproxen 500 mg tablet 500 mg PO BID PRN PRN Pain O r Fever 07/01/19 Unknown History topiramate 100 mg tablet 100 mg PO BID 07/01/1911/07 History glimepiride 2 mg tablet 4 mg PO DAILY 11/08/1911/07 History lansoprazole 30 mg capsule,delayed 30 mg PO DAILY #30 CAPSULES 12/30/20 09/28/23 Rx release albuterol sulfate 90 mcg/actuation 2 puff inhalation Q 4H PRN PRN 09/07/22 09/28/23 Rx aerosol inhaler (Ventolin HFA) Wheezing ##1 ferrous sulfate 325 mg (65 mg 325 mg PO TID #90 tabs 1 11/08/21 Unknown Rx iron) tablet (FeroSul) furosemide 20 mg tablet 20 mg PO BID 09/07/22 Unknow n History cyclobenzaprine 10 mg tablet 10 mg PO TID PRN Muscle S pasm #20 12/09/22 Unknown Rx TABLETS pramipexole 1.5 mg tablet (Mirapex) 1.5 mg PO QHS 06/10 Unknown History ascorbic acid (vitamin C) 1,000 mg 1 g PO DAILY 90 day s #90 tabs 09/28/23 Unknown Rx tablet (Vitamin C) calcium 500 mg (as 1 tab PO DAILY 90 days #90 t abs 09/28/23 Unknown Rx carbonate)-vitamin D3 15 mcg (600 unit) tablet (Os-Wilfredo 500 + D3) cyclobenzaprine 10 mg tablet 10 mg PO TID 7 days #21 t abs 09/28/23 Unknown Rx docusate sodium 100 mg capsule 100 mg PO DAILY 10 days #10 caps 09/28/23 Unknown Rx (Colace) acetaminophen 500 mg tablet 1,000 mg (2 x 500 mg) PO Q 6H PRN 03/09/24 Unknown Rx (Tylenol Extra Strength) pain 7 days #56 tabs benztropine 1 mg tablet 1 mg PO BID PRN PRN legs Unknown History quetiapine 25 mg tablet (Seroquel) 25 mg PO DAILY 03/1804/09/24 History sulfamethoxazole 800 1 tab PO BID 2 weeks #28 tab s 06/25/24 Unknown Rx mg-trimethoprim 160 mg tablet (Bactrim DS) amoxicillin 875 mg-potassium 1 tab PO BID 2 weeks #28 tabs 07/02/24 Unknown Rx clavulanate 125 mg tablet gentamicin 0.1 % topical ointment 1 applic topical TID #30 grams 07/02/24 Unknown Rx cephalexin 500 mg capsule 500 mg PO Q6 #20 CAPSULES Unknown Rx hydrocodone-acetaminophen 5-325mg 1 tab PO Q6H PRN PRN Pain 3 days 12/15/24 Unknown Rx 5mg-325mg #10 TABLETS Allergy/AdvReac Type Severity Reaction Status Date / Time amoxicillin (From Augmentin) Allergy Intermediate Hives Verified 09/18/24 15:45 clavulanic acid (From Allergy Intermediate Hives Verified 09/18/24 15:45 Augmentin) melatonin Allergy Hives Verified 09/18/24 15:45 Penicillins Allergy Hives Verified 09/18/24 15:45 Surgical History History of cardiac catheterization History of umbilical hernia repair (~2016) History of herniorrhaphy Social History household members: none Smoking Status: Current every day smoker tobacco type: cigarettes Tobacco: How many years used: 20 how long ago did patient quit smokin months substance use type: does not use ROS ROS ED Constitutional Constitutional ED: Denies chills or fever(s) Cardiovascular Cardiovascular: Reports leg edema Gastrointestinal Gastrointestinal: Denies abdominal pain, constipation, fecal incontinence, nausea or vomiting Genitourinary Genitourinary ED: Reports other Details: no urinary retention ; Denies abdominal discomfort or urinary incontinence Musculoskeletal Musculoskeletal: Reports as per HPI and back pain; Denies neck pain Integumentary Denies rash or wounds Neurologic Neurologic: Denies headache(s), paresthesias or weakness EXAM Physical Exam Const Vital Signs: 12/15/24 11:45 Temperature 98.1 F Temperature Source Temporal Pulse Rate 107 H Respiratory Rate 20 H Blood Pressure 139/83 H Blood Pressure Mean 101 Pulse Ox 100 Oxygen Delivery Method Room Air Positive well nourished and well developed Constitutional Narrative: Morbidly obese. No distress. General Appearance ED: well developed and NAD HEENT Negative for trauma or tenderness Eyes PERRL and EOMs intact bilaterally Neck full ROM and supple GI normal to inspection, nondistended, normoactive bowel sounds, soft to palpation and non-tender Back/Spine normal to inspection Lumbar Spine / Lower Back: ROM limited, paraspinal muscle tenderness bilateral and straight leg raise negative bilaterally; Negative for lumbar spinal tenderness Extremity normal to inspection and full ROM Extremity Narrative: Lymphedema especially right lower extremity, compression stocking on. Difficultto feel distal pulses due to lymphedema. Prescribe refill both toes/feet, good sensation. No calf tenderness. Neuro oriented x3 and no sensory deficits noted Sensorium / Orientation: alert Motor Exam: strength 5/5 throughout and clonus absent Deep Tendon Reflexes: Rt Patellar (L4): 2+, Lt Patellar (L4): 2+, Rt Ankle (S1):2+ and Lt Ankle (S1): 2+ Deep Tendon Reflexes Back: Rt Patellar (L4): 2+, Lt Patellar (L4): 2+, Rt Ankle (S1): 2+ and Lt Ankle (S1): 2+ Plantar Reflex: Downgoing: bilateral Psych mental status grossly normal and thought process normal Skin no rashes or lesions noted and no wounds MDM MDM MDM Narrative Medical decision making narrative: Given her BMI and limited evaluation of her lumbar spine clinically, although she is not testing for radiculopathy I obtained three-view x-ray series of the lumbar spine on my interpretation negativefor acute fracture. Radiology in agreement. She was given a [place], she is diabetic. I will give elicia short prescription and advised outpatient follow-up. Radiography Diagnostic Testing: Clinical Impression(s) from Imaging Studies Lumbar Spine X-Ray 12/15/24 12:39 IMPRESSION: No acute process detected. Reading Location: [facility] Discharge Plan Triage Chief Complaint: Back ED Provider: Arcadio Bundy Dx/Rx/DC Orders Clinical Impression: Acute low back pain Instructions: ED Back Pain (Acute or Chronic) Prescriptions: New hydrocodone-acetaminophen 5-325 mg tablet 1 tab PO Q6H PRN PRN (Reason: Pain) 3 Days Qty: 10 0RF No Action loratadine [Allergy Relief (loratadine)] 10 MG tablet 10 mg PO DAILY lorazepam 1 MG tablet 1 mg PO BID PRN PRN (Reason: Anxiety) sumatriptan succinate [Imitrex] 25 MG tablet 25 mg PO .X1 PRN PRN (Reason: Migraine Symptoms) montelukast 10 MG tablet 10 mg PO QHS metformin 500 MG tablet 1,000 mg PO BID Patient Comments: TAKE 2 TABLETS TWICE DAILY WITH meals lamotrigine 200 mg tablet 200 mg PO BID Patient Comments: 1 tablet twice a day citalopram 40 tablet 40 mg PO DAILY topiramate 100 MG tablet 100 mg PO BID Patient Comments: TAKE 1 TABLET TWICE DAILY naproxen 500 MG tablet 500 mg PO BID PRN PRN (Reason: Pain Or Fever) Patient Comments: TAKE 1 TABLET TWICE DAILY WITH FOOD NEEDED FOR PAIN /inflammation aripiprazole 2 mg tablet 5 mg PO QHS Patient Comments: Take 1 tablet by mouth once a day glimepiride 2 MG tablet 4 mg PO DAILY lansoprazole 30 MG capsule 30 mg PO DAILY Qty: 30 0RF furosemide 20 mg tablet 20 mg PO BID ferrous sulfate [FeroSul] 325 mg (65 mg iron) tablet 325 mg PO TID Qty: 90 0RF Rx Instructions: May start once a day for a week, twice a day for a week, and then start 3 times daily. albuterol sulfate [Ventolin HFA] 90 mcg/actuation HFA aerosol inhaler 2 puff inhalation Q4H PRN MDD Dispense with spacer if availa PRN (Reason: Wheezing) Qty: 1 0RF cyclobenzaprine [cyclobenzaprine] 10 mg tablet 10 mg PO TID PRN (Reason: Muscle Spasm) Qty: 20 0RF pramipexole [Mirapex] 1.5 mg tablet 1.5 mg PO QHS cyclobenzaprine 10 mg tablet 10 mg PO TID 7 Days Qty: 21 0RF docusate sodium [Colace] 100 mg capsule 100 mg PO DAILY 10 Days Qty: 10 0RF ascorbic acid (vitamin C) [Vitamin C] 1,000 mg tablet 1 g PO DAILY 90 Days Qty: 90 0RF calcium carbonate-vitamin D3 [Os-Wilfredo 500 + D3] 500 mg-15 mcg (600 unit) tablet 1 tab PO DAILY 90 Days Qty: 90 0RF sulfamethoxazole-trimethoprim [Bactrim DS] 800-160 mg tablet 1 tab PO BID 14 Days Qty: 28 0RF amoxicillin-pot clavulanate 875-125 mg tablet 1 tab PO BID 14 Days Qty: 28 0RF gentamicin 0.1 % ointment 1 applic topical TID Qty: 30 1RF Rx Instructions: Applied to full-thickness wound to the posterior right leg daily and cover with dry sterile dressing. benztropine 1 mg tablet 1 mg PO BID PRN PRN (Reason: legs) acetaminophen [Tylenol Extra Strength] 500 mg tablet 1,000 mg PO Q6H PRN (Reason: pain) 7 Days Qty: 56 0RF quetiapine [Seroquel] 25 mg tablet 25 mg PO DAILY Rx Instructions: 3 tablets daily cephalexin 500 mg capsule 500 mg PO Q6 Qty: 20 0RF Primary Care Provider: Rodri Chauhan Referrals: Rodri Chauhan MD [Primary Care Provider] - 1 Week if not improving Print Language: Nepalese Disposition Disposition: Home, Self Care What to do if you have Problems For any increased pain, shortness of breath, bleeding, nausea or vomiting, chestpain, or any unexpected problems, contact your Primary Care Provider. Call [facility] ([phone]) or report tothe closest Emergency Room. Call 911 if necessary. 12/15/24 1443 Cosigner Signature (if applicable): CC: Dr. Rodri Chauhan MD ~ Signed [facility]03-31-2025 Discharge summary Author Arcadio Bundy [facility] Note Date/Time December 15, 2024 2:4 3pm [facility] Medical Records Department [address] [place] [address] Emergency Department Summary 12/15/24 MR#: [id number] Acct: [id number] Name: RODRIGUEZNANCI L Rep #:[id number] : 1980 44 From: Arcadio Bundy MD PCP: Dr. Rodri Chauhan MD Status:RE G ER Location: ED HPI History of Present Illness Chief Complaint: Back Informant: patient Narrative Narrative: 44-year-old male presenting with back pain gradual in onset for the past week orso. All the way across her low back, no radiation into her legs, no bowel or bladder dysfunction, no perineal paresthesias/anesthesia. Denies any injury, overuse, repetitive movements that she can remember. She states she has a history of low back pain that is chronic and she associates with her degenerative disc disease, sometimes with and sometimes without sciatica, and she states she started with that sciatica pain at the beginning of this past 1or 2 weeks ago, and was prescribed some prednisone which took the sciatica away but now this pain is severe and unlike her chronic pain. No abdominal pain with this, fevers, chills, or other systemic symptoms. Hurts more to move and better to rest. States she has chronic asymmetric lymphedema worse on the right leg, uses compression stockings states that she will need them for life, no changes there. History of wounds that are not currently present everything healed. [facility] Medical History Open wound History of steroid therapy Diabetes Easy bruising Restless legs Migraine headache Wears glasses Cracked tooth Difficulty chewing GERD (gastroesophageal reflux disease) Electronic cigarette use CPAP (continuous positive airway pressure) dependence Shortness of breath on exertion History of stress test Anxiety Sleep apnea COPD (chronic obstructive pulmonary disease) Asthma Obesity Diabetes Bipolar 1 disorder Home Medications ?Medication ?Instructions ?Recorded ?Last Taken ?Type loratadine 10 mg tablet (Allergy 10 mg PO DAILY Allerg ies 07/07/13 11/07/19 History Relief (loratadine)) lorazepam 1 mg tablet 1 mg PO BID PRN PRN Anxiety 12/11/13 06/26/19 History montelukast 10 mg tablet 10 mg PO QHS 08/10/16 History sumatriptan succinate 25 mg tablet 25 mg PO .X1 PRN IA N Migraine 08/10/16 06/30/19 History (Imitrex) Symptoms aripiprazole 2 mg tablet 5 mg PO QHS 07/01/19 3 History citalopram 40 mg tablet 40 mg PO DAILY 07/01/1909/17 History lamotrigine 200 mg tablet 200 mg PO BID 07/01/1909/28 History metformin 500 mg tablet 1,000 mg PO BID dm 07/01/19 11/07/19 History naproxen 500 mg tablet 500 mg PO BID PRN PRN Pain O r Fever 07/01/19 Unknown History topiramate 100 mg tablet 100 mg PO BID 07/01/1911/07 History glimepiride 2 mg tablet 4 mg PO DAILY 11/08/1911/07 History lansoprazole 30 mg capsule,delayed 30 mg PO DAILY #30 CAPSULES 12/30/20 09/28/23 Rx release albuterol sulfate 90 mcg/actuation 2 puff inhalation Q 4H PRN PRN 09/07/22 09/28/23 Rx aerosol inhaler (Ventolin HFA) Wheezing ##1 ferrous sulfate 325 mg (65 mg 325 mg PO TID #90 tabs 1 11/08/21 Unknown Rx iron) tablet (FeroSul) furosemide 20 mg tablet 20 mg PO BID 09/07/22 Unknow n History cyclobenzaprine 10 mg tablet 10 mg PO TID PRN Muscle S pasm #20 12/09/22 Unknown Rx TABLETS pramipexole 1.5 mg tablet (Mirapex) 1.5 mg PO QHS 06/10 Unknown History ascorbic acid (vitamin C) 1,000 mg 1 g PO DAILY 90 day s #90 tabs 09/28/23 Unknown Rx tablet (Vitamin C) calcium 500 mg (as 1 tab PO DAILY 90 days #90 t abs 09/28/23 Unknown Rx carbonate)-vitamin D3 15 mcg (600 unit) tablet (Os-Wilfredo 500 + D3) cyclobenzaprine 10 mg tablet 10 mg PO TID 7 days #21 t abs 09/28/23 Unknown Rx docusate sodium 100 mg capsule 100 mg PO DAILY 10 days #10 caps 09/28/23 Unknown Rx (Colace) acetaminophen 500 mg tablet 1,000 mg (2 x 500 mg) PO Q 6H PRN 03/09/24 Unknown Rx (Tylenol Extra Strength) pain 7 days #56 tabs benztropine 1 mg tablet 1 mg PO BID PRN PRN legs Unknown History quetiapine 25 mg tablet (Seroquel) 25 mg PO DAILY 03/1804/09/24 History sulfamethoxazole 800 1 tab PO BID 2 weeks #28 tab s 06/25/24 Unknown Rx mg-trimethoprim 160 mg tablet (Bactrim DS) amoxicillin 875 mg-potassium 1 tab PO BID 2 weeks #28 tabs 07/02/24 Unknown Rx clavulanate 125 mg tablet gentamicin 0.1 % topical ointment 1 applic topical TID #30 grams 07/02/24 Unknown Rx cephalexin 500 mg capsule 500 mg PO Q6 #20 CAPSULES Unknown Rx hydrocodone-acetaminophen 5-325mg 1 tab PO Q6H PRN PRN Pain 3 days 12/15/24 Unknown Rx 5mg-325mg #10 TABLETS Allergy/AdvReac Type Severity Reaction Status Date / Time amoxicillin (From Augmentin) Allergy Intermediate Hives Verified 09/18/24 15:45 clavulanic acid (From Allergy Intermediate Hives Verified 09/18/24 15:45 Augmentin) melatonin Allergy Hives Verified 09/18/24 15:45 Penicillins Allergy Hives Verified 09/18/24 15:45 Surgical History History of cardiac catheterization History of umbilical hernia repair (~2016) History of herniorrhaphy Social History household members: none Smoking Status: Current every day smoker tobacco type: cigarettes Tobacco: How many years used: 20 how long ago did patient quit smokin months substance use type: does not use ROS ROS ED Constitutional Constitutional ED: Denies chills or fever(s) Cardiovascular Cardiovascular: Reports leg edema Gastrointestinal Gastrointestinal: Denies abdominal pain, constipation, fecal incontinence, nausea or vomiting Genitourinary Genitourinary ED: Reports other Details: no urinary retention ; Denies abdominal discomfort or urinary incontinence Musculoskeletal Musculoskeletal: Reports as per HPI and back pain; Denies neck pain Integumentary Denies rash or wounds Neurologic Neurologic: Denies headache(s), paresthesias or weakness EXAM Physical Exam Const Vital Signs: 12/15/24 11:45 Temperature 98.1 F Temperature Source Temporal Pulse Rate 107 H Respiratory Rate 20 H Blood Pressure 139/83 H Blood Pressure Mean 101 Pulse Ox 100 Oxygen Delivery Method Room Air Positive well nourished and well developed Constitutional Narrative: Morbidly obese. No distress. General Appearance ED: well developed and NAD HEENT Negative for trauma or tenderness Eyes PERRL and EOMs intact bilaterally Neck full ROM and supple GI normal to inspection, nondistended, normoactive bowel sounds, soft to palpation and non-tender Back/Spine normal to inspection Lumbar Spine / Lower Back: ROM limited, paraspinal muscle tenderness bilateral and straight leg raise negative bilaterally; Negative for lumbar spinal tenderness Extremity normal to inspection and full ROM Extremity Narrative: Lymphedema especially right lower extremity, compression stocking on. Difficultto feel distal pulses due to lymphedema. Prescribe refill both toes/feet, good sensation. No calf tenderness. Neuro oriented x3 and no sensory deficits noted Sensorium / Orientation: alert Motor Exam: strength 5/5 throughout and clonus absent Deep Tendon Reflexes: Rt Patellar (L4): 2+, Lt Patellar (L4): 2+, Rt Ankle (S1):2+ and Lt Ankle (S1): 2+ Deep Tendon Reflexes Back: Rt Patellar (L4): 2+, Lt Patellar (L4): 2+, Rt Ankle (S1): 2+ and Lt Ankle (S1): 2+ Plantar Reflex: Downgoing: bilateral Psych mental status grossly normal and thought process normal Skin no rashes or lesions noted and no wounds MDM MDM MDM Narrative Medical decision making narrative: Given her BMI and limited evaluation of her lumbar spine clinically, although she is not testing for radiculopathy I obtained three-view x-ray series of the lumbar spine on my interpretation negative for acute fracture. Radiology in agreement. She was given a [place], she is diabetic. I will give her a short prescription and advised outpatient follow-up. Radiography Diagnostic Testing: Clinical Impression(s) from Imaging Studies Lumbar Spine X-Ray 12/15/24 12:39 IMPRESSION: No acute process detected. Reading [facility] Discharge Plan Triage Chief Complaint: Back ED Provider: Arcadio Bundy Dx/Rx/DC Orders Clinical Impression: Acute low back pain Instructions: ED Back Pain (Acute or Chronic) Prescriptions: New hydrocodone-acetaminophen 5-325 mg tablet 1 tab PO Q6H PRN PRN (Reason: Pain) 3 Days Qty: 10 0RF No Action loratadine [Allergy Relief (loratadine)] 10 MG tablet 10 mg PO DAILY lorazepam 1 MG tablet 1 mg PO BID PRN PRN (Reason: Anxiety) sumatriptan succinate [Imitrex] 25 MG tablet 25 mg PO .X1 PRN PRN (Reason: Migraine Symptoms) montelukast 10 MG tablet 10 mg PO QHS metformin 500 MG tablet 1,000 mg PO BID Patient Comments: TAKE 2 TABLETS TWICE DAILY WITH meals lamotrigine 200 mg tablet 200 mg PO BID Patient Comments: 1 tablet twice a day citalopram 40 tablet 40 mg PO DAILY topiramate 100 MG tablet 100 mg PO BID Patient Comments: TAKE 1 TABLET TWICE DAILY naproxen 500 MG tablet 500 mg PO BID PRN PRN (Reason: Pain Or Fever) Patient Comments: TAKE 1 TABLET TWICE DAILY WITH FOOD NEEDED FOR PAIN /inflammation aripiprazole 2 mg tablet 5 mg PO QHS Patient Comments: Take 1 tablet by mouth once a day glimepiride 2 MG tablet 4 mg PO DAILY lansoprazole 30 MG capsule 30 mg PO DAILY Qty: 30 0RF furosemide 20 mg tablet 20 mg PO BID ferrous sulfate [FeroSul] 325 mg (65 mg iron) tablet 325 mg PO TID Qty: 90 0RF Rx Instructions: May start once a day for a week, twice a day for a week, and then start 3 times daily. albuterol sulfate [Ventolin HFA] 90 mcg/actuation HFA aerosol inhaler 2 puff inhalation Q4H PRN MDD Dispense with spacer if availa PRN (Reason: Wheezing) Qty: 1 0RF cyclobenzaprine [cyclobenzaprine] 10 mg tablet 10 mg PO TID PRN (Reason: Muscle Spasm) Qty: 20 0RF pramipexole [Mirapex] 1.5 mg tablet 1.5 mg PO QHS cyclobenzaprine 10 mg tablet 10 mg PO TID 7 Days Qty: 21 0RF docusate sodium [Colace] 100 mg capsule 100 mg PO DAILY 10 Days Qty: 10 0RF ascorbic acid (vitamin C) [Vitamin C] 1,000 mg tablet 1 g PO DAILY 90 Days Qty: 90 0RF calcium carbonate-vitamin D3 [Os-Wilfredo 500 + D3] 500 mg-15 mcg (600 unit) tablet 1 tab PO DAILY 90 Days Qty: 90 0RF sulfamethoxazole-trimethoprim [Bactrim DS] 800-160 mg tablet 1 tab PO BID 14 Days Qty: 28 0RF amoxicillin-pot clavulanate 875-125 mg tablet 1 tab PO BID 14 Days Qty: 28 0RF gentamicin 0.1 % ointment 1 applic topical TID Qty: 30 1RF Rx Instructions: Applied to full-thickness wound to the posterior right leg daily and cover with dry sterile dressing. benztropine 1 mg tablet 1 mg PO BID PRN PRN (Reason: legs) acetaminophen [Tylenol Extra Strength] 500 mg tablet 1,000 mg PO Q6H PRN (Reason: pain) 7 Days Qty: 56 0RF quetiapine [Seroquel] 25 mg tablet 25 mg PO DAILY Rx Instructions: 3 tablets daily cephalexin 500 mg capsule 500 mg PO Q6 Qty: 20 0RF Primary Care Provider: Rodri Chauhan Referrals: Rodri Chauhan MD [Primary Care Provider] - 1 Week if not improving Print Language: Nepalese Disposition Disposition: Home, Self Care What to do if you have Problems For any increased pain, shortness of breath, bleeding, nausea or vomiting, chestpain, or any unexpected problems, contact your Primary Care Provider. Call [facility] ([phone]) or report to the closest Emergency Room. Call 911 if necessary. 12/15/24 1443 <Electronically signed by Arcadio Bundy MD> Cosigner Signature (if applicable): CC: Dr. Rodri Chauhan MD ~ Signed [facility] Work Phone: [phone] 395-576803-31-2025 Radiology Diagnostic study note [facility] Imaging Services [address], [place] [id number] Lumbar Spine 2 or 3 Views MR#: [id number] Acct: [id number] Name: NANCI RODRIGUEZ Rep #: [id number] : 1980 F 44 From: Pet er Peer DO PCP: Dr. Rodri Chauhan MD Status: RE G ER Study:Lumbar Spine 2 or 3 Views Date of Exam: 12/15/24 Exam# [id number] Ordering Dr: Franck Bundy MD PROCEDURE: LUMBAR SPINE 2 OR 3 VIEWS 12/15/2024 REASON FOR EXAM: PAIN TECHNIQUE: 2 view(s) of the lumbar spine COMPARISON: None. FINDINGS: Vertebrae: Vertebral body heights are maintained. Transverse and spinous processes appear intact but are not highly visible. Discs: Multilevel degenerative loss of disc height. Alignment: AP alignment grossly maintained. Other: RAD/Lumbar Spine 2 or 3 Views IMPRESSION: No acute process detected. Reading Location[facility] CC: Dr. Arcadio Bnudy MD; Dr. Rodri Chauhan MD ~ Financial Services Professional: Signed [facility]03-28-2025 NoteHNO ID: [id number] Author: JORGE DRISCOLL MD Service: ? Author Type: Physician Type: Progress Notes Filed: 12/12/2024 11:20 Note Text: HISTORY OF PRESENT ILLNESS: Nanci Rodriguez is a 44 year old female referred for thrombocytopenia. Stable low platelets since 2020, noted platelet clumping 2019. Occ nose bleed. Reviewed meds, also CT scans We note fatty liver. Iron supplement MW for several months now. CLINICAL IMPRESSION: Stable mild thrombocytopenia, suspect relates to fatty liver,as WBC also a little low. RECOMMENDATION/PLAN: 1. Citrated platelet count, iron studies 2. Follow up prn Written and verbal health teaching given to patient, patient verbalizes understanding and agrees with treatment plan. PAST MEDICAL HISTORY Diagnosis Date Abnormal glandular [...] 11/07/2006 Right hip pain 12/15/2013 Unspecified asthma(493.90) PAST SURGICAL HISTORY Procedure Laterality Date BACK SURGERY HX Pain block COLONOSCOPY W/BIOPSY SINGLE/MULTIPLE 10/22/2017 EGD TRANSORAL BIOPSY SINGLE/MULTIPLE 10/22/2017 RPR UMBILICAL HRNA 5 YRS/> REDUCIBLE 10/05/[address] mesh VAGINOSCOPY FAMILY HISTORY Problem Relation Age of Onset other (hepatitis b) Mother Lung Cancer Mother other (hip cancer) Mother Asthma Father Hypertension Father Diabetes Father Hypertension Brother Diabetes Brother Diabetes Brother Hypertension Brother adhd Asthma Brother other (lung cancer) Maternal Uncle Social History Tobacco Use Smoking status: Every Day Current packs/day: 0.25 Average packs/day: 0.3 packs/day for 26.3 years (6.6 ttl pk-yrs) Types: Cigarettes Start date: 08/17/1998 Smokeless tobacco: Never Vaping Use Vaping status: Former Quit date: 12/13/2023 Substance Use Topics Alcohol use: Never Drug use: No Comment: Past history of Marjiuana use ALLERGIES: ALLERGIES Allergen Reactions Penicillins Itching, Hives Melatonin Rash, Hives Tramadol Other: See Comments tic like movements Wellbutrin [Bupropi* Intolerance Dry mouth--severe, intolerable CURRENT OUTPATIENT MEDICATIONS: dulaglutide (TRULICITY) 1.5 mg/0.5 mL pen injector Inject 1.5 mg subcutaneously one time a week. Inject dose once per week. Discard Pen After cyclobenzaprine (FLEXERIL) 10 mg tablet Take 1 tablet by mouth three times a day as needed for muscle spasm. May make drowsy metFORMIN (GLUCOPHAGE) 500 mg tablet Take 2 tablets by mouth two times a day with meals. Take one additional 500 mg tab with breakfast or lunch until BS less than 250 furosemide (LASIX) 40 mg tablet Take 1 tablet by mouth once daily. SUMAtriptan (IMITREX) 25 mg tablet Take 1 tablet by mouth at onset of headache and may repeat in 2 hrs if needed. promethazine (PHENERGAN) 12.5 mg tablet Take 1 tablet by mouth four times a day as needed for nausea/vomiting. loratadine (CLARITIN) 10 mg tablet Take 1 tablet by mouth once daily. mometasone-formoterol (DULERA) 50-5 mcg/actuation HFA aerosol inhaler Inhale 1 Puff as instructed two times a day. Rinse mouth out after use. celecoxib (CELEBREX) 200 mg capsule Take 1 capsule by mouth once daily. Take with food glimepiride (AMARYL) 4 mg tablet Take 1 tablet by mouth daily with breakfast. Dose change, take one daily montelukast (SINGULAIR) 10 mg tablet Take 1 tablet by mouth daily at bedtime. albuterol HFA (VENTOLIN HFA) 90 mcg/actuation inhaler Inhale 2 Puffs as instructed every 4 hours as needed. ferrous sulfate 325 mg (65 mg iron) tablet Take 1 tablet by mouth every Sunday, Sunday, and Sunday. topiramate (TOPAMAX) 100 mg tablet Take 1 tablet by mouth two times a day. lansoprazole (PREVACID) 30 mg capsule Take 1 capsule by mouth daily before breakfast. pramipexole (MIRAPEX) 1.5 mg tablet Take 1 tablet by mouth daily at bedtime. QUEtiapine (SEROQUEL) 25 mg tablet Take 75 mg by mouth daily at bedtime. lamoTRIgine (LAMICTAL) 200 mg tablet Take 1 tablet by mouth two times a day. diphenhydrAMINE (BENADRYL) 25 mg capsule Take 1 capsule by mouth every 6 hours as needed for itching/rash. glucose 4 gram chewable tablet Take 4 tablets by mouth as needed for low blood sugar. lidocaine (LIDODERM) 5 % Apply 1 Patch as directed every 24 hours. Remove after 12 hours. Albuterol Sulfate 1.25 mg/3 mL nebulizer solution Use 1 Ampule via nebulizer every 4 hours as needed for wheezing/shortness of breath (more content not included)...[facility]03-28-2025 History of Present illness Narrative* Jorge Driscoll MD - 12/12/2024 10:26 AM EDT HISTORY OF PRESENT ILLNESS: Nanci Rodriguez is a 44 year old female referred for thrombocytopenia. Stable low platelets since 2020, noted platelet clumping 2019. Occ nose bleed. Reviewed meds, also CT scans We note fatty liver. Iron supplement MW for several months now. CLINICAL IMPRESSION: Stable mild thrombocytopenia, suspect relates to fatty liver,as WBC also a little low. RECOMMENDATION/PLAN: 1. Citrated platelet count, iron studies 2. Follow up prn Written and verbal health teaching given to patient, patient verbalizes understanding and agrees with treatment plan. PAST MEDICAL HISTORY Diagnosis Date Abnormal glandular [...] 11/07/2006 Right hip pain 12/15/2013 Unspecified asthma(493.90) PAST SURGICAL HISTORY Procedure Laterality Date BACK SURGERY HX Pain block COLONOSCOPY W/BIOPSY SINGLE/MULTIPLE 10/22/2017 EGD TRANSORAL BIOPSY SINGLE/MULTIPLE 10/22/2017 RPR UMBILICAL HRNA 5 YRS/> REDUCIBLE 10/05/[address] mesh VAGINOSCOPY FAMILY HISTORY Problem Relation Age of Onset other (hepatitis b) Mother Lung Cancer Mother other (hip cancer) Mother Asthma Father Hypertension Father Diabetes Father Hypertension Brother Diabetes Brother Diabetes Brother Hypertension Brother adhd Asthma Brother other (lung cancer) Maternal Uncle Social History Tobacco Use Smoking status: Every Day Current packs/day: 0.25 Average packs/day: 0.3 packs/day for 26.3 years (6.6 ttl pk-yrs) Types: Cigarettes Start date: 08/17/1998 Smokeless tobacco: Never Vaping Use Vaping status: Former Quit date: 12/13/2023 Substance Use Topics Alcohol use: Never Drug use: No Comment: Past history of [place] use ALLERGIES: ALLERGIES Allergen Reactions Penicillins Itching, Hives Melatonin Rash, Hives Tramadol Other: See Comments tic like movements Wellbutrin [Bupropi* Intolerance Dry mouth--severe, intolerable CURRENT OUTPATIENT MEDICATIONS: dulaglutide (TRULICITY) 1.5 mg/0.5 mL pen injector Inject 1.5 mg subcutaneously one time a week. Inject dose once per week. Discard Pen After cyclobenzaprine (FLEXERIL) 10 mg tablet Take 1 tablet by mouth three times a day as needed for muscle spasm. May make drowsy metFORMIN (GLUCOPHAGE) 500 mg tablet Take 2 tablets by mouth two times a day with meals. Take one additional 500 mg tab with breakfast or lunch until BS less than 250 furosemide (LASIX) 40 mg tablet Take 1 tablet by mouth once daily. SUMAtriptan (IMITREX) 25 mg tablet Take 1 tablet by mouth at onset of headache and may repeat in 2 hrs if needed. promethazine (PHENERGAN) 12.5 mg tablet Take 1 tablet by mouth four times a day as needed for nausea/vomiting. loratadine (CLARITIN) 10 mg tablet Take 1 tablet by mouth once daily. mometasone-formoterol (DULERA) 50-5 mcg/actuation HFA aerosol inhaler Inhale 1 Puff as instructed two times a day. Rinse mouth out after use. celecoxib (CELEBREX) 200 mg capsule Take 1 capsule by mouth once daily. Take with food glimepiride (AMARYL) 4 mg tablet Take 1 tablet by mouth daily with breakfast. Dose change, take onedaily montelukast (SINGULAIR) 10 mg tablet Take 1 tablet by mouth daily at bedtime. albuterol HFA (VENTOLIN HFA) 90 mcg/actuation inhaler Inhale 2 Puffs as instructed every 4 hours asneeded. ferrous sulfate 325 mg (65 mg iron) tablet Take 1 tablet by mouth every Sunday, Sunday, and Sunday. topiramate (TOPAMAX) 100 mg tablet Take 1 tablet by mouth two times a day. lansoprazole (PREVACID) 30 mg capsule Take 1 capsule by mouth daily before breakfast. pramipexole (MIRAPEX) 1.5 mg tablet Take 1 tablet by mouth daily at bedtime. QUEtiapine (SEROQUEL) 25 mg tablet Take 75 mg by mouth daily at bedtime. lamoTRIgine (LAMICTAL) 200 mg tablet Take 1 tablet by mouth two times a day. diphenhydrAMINE (BENADRYL) 25 mg capsule Take 1 capsule by mouth every 6 hours as needed for itching/rash. glucose 4 gram chewable tablet Take 4 tablets by mouth as needed for low blood sugar. lidocaine (LIDODERM) 5 % Apply 1 Patch as directed every 24 hours. Remove after 12 hours. Albuterol Sulfate 1.25 mg/3 mL nebulizer solution Use 1 Ampule via nebulizer every 4 hours as needed for wheezing/shortness of breath. ARIPiprazole (ABILIFY) 5 mg tablet Take 1 tablet by mouth once daily. LORazepam (ATIVAN) 1 mg tablet Take 1 tablet by mouth twice daily. As needed. citalopram (CELEXA) 40 mg tablet Take 40 mg by mouth once daily. Managed [facility] Lancets Test blood sugar(s) once times daily. Dx: Type 2 DM - Controlled E11.9 Insulin: No blood sugar diagnostic (BLOOD GLUCOSE TEST) test strip Test blood sugar(s) one time daily. Dx: Type2 DM - Controlled E11.9 Insulin: No. Uses True Metrix test strips. dulaglutide (TRULICITY) 0.75 mg/0.5 mL pen injector Inject 0.75 mg subcutaneously one time a week. Inject dose once per week. Discard Pen After (Patient not taking: Reported on 12/12/2024) benzonatate (TESSALON PERLE) 100 mg capsule Take 1-2 capsules by mouth three times a day as needed.(Patient not taking: Reported on 12/12/2024) CPAP Needs replacement CPAP @ 15 cm of water with humidification. Mask (per patient preference) optional chin strap (if indicated) , filters, tubing, humidifier and lifetime supplies. G47.33 MARIA TERESA on CPAP silver sulfADIAZINE (SILVADENE) 1 % cream Apply 1 application to affected area once daily. (Patientnot taking: Reported on 12/12/2024) FREESTYLE FREEDOM LITE monitoring kit USE DIRECTED CPAP Needs lifetime supplies (mask, hoses, headgear, filters, water chamber) G47.33 (already has CPAP) Nebulizer NEBULIZER and Supplies FOR HOME USE. DX: J45.40 REVIEW OF SYSTEMS: GENERAL: No fever, night sweats, weight loss or malaise. All other reviewed and negative other than HPI. PHYSICAL EXAMINATION: VITAL SIGNS: BP 130/60 Pulse 100 Temp (Src) 97.6 (Temporal) Ht 5' 2.48 (1.59m) Wt 376 lb 8oz (170.8kg) SpO2 100% LMP 10/13/2024 BMI 67.81 kg/(m^2). GENERAL APPEARANCE: Well appearing, in no acute distress, alert and oriented x3, well-hydrated, well nourished. I spent a total of 45 minutes on the date of the service which included preparing to see the patient, [id number] patient care, completing clinical documentation, obtaining and/or reviewing separately obtained history, counseling and educating the patient/family/caregiver, ordering medications, jonathan ts, or procedures, independently interpreting results (not separately reported), and communicating results to the patient/family/caregiver. Electronically Signed: Jorge Driscoll MD December 12, 2024 10:27 AM [facility] Telephone encounter Note * Telephone Encounter - Helen Sullivan RN - 12/11/2024 9:49 AM EDT Called pt and discussed with her that it appears she just called on Sunday requesting refill on herlancets and that she asked for them to go to [facility]. Pt states she doesn't remember calling and asking for a refill on them. But she would like [facility] to fill the script for her as [facility] primary [facility] and [facility] is for after hours prescriptions. Called and spoke with Elizabeth at [facility] and asked that they call [facility] and transfer the script to them. [facility]03-[facility] Miscellaneous Notes* Telephone Encounter - Helen Sullivan RN - 12/11/2024 9:49 AM EDT Called pt and discussed with her that it appears she just called on Sunday requesting refill on herlancets and that she asked for them to go to [facility]. Pt states she doesn't remember calling and asking for a refill on them. But she would like [facility] to fill the script for her as [facility] primary [facility] and [facility] is for after hours prescriptions. Called and spoke with Elizabeth at [facility] and asked that they call [facility] and transfer the script to them. * Telephone Encounter - Tanya Angelo - 12/11/2024 9:24 AM EDT Prescription Refill Information The patient has been identified by name and date of : Yes Caregiver verified no other encounters exist for this prescription request: Yes Caregiver confirmed with patient/requestor that no other refills are due, in the near future, with this provider at this time: Yes The last office visit in the department: 10-20-24 Does the patient have a future office visit with this provider/department: Yes Requested Prescriptions Pending Prescriptions Disp Refills Lancets 100 Each 11 Sig: Test blood sugar(s) once times daily. Dx: Type 2 DM - Controlled E11.9 Insulin: No Tanya Rodrigues December 11, 2024 9:24 AM documented in [facility]Day[facility] Telephone encounter Note * Telephone Encounter - Tanya Angelo - 12/11/2024 9:24 AM EDT Prescription Refill Information The patient has been identified by name and date of : Yes Caregiver verified no other encounters exist for this prescription request: Yes Caregiver confirmed with patient/requestor that no other refills are due, in the near future, with this provider at this time: Yes The last office visit in the department: 10-20-24 Does the patient have a future office visit with this provider/department: Yes Requested Prescriptions Pending Prescriptions Disp Refills Lancets 100 Each 11 Sig: Test blood sugar(s) once times daily. Dx: Type 2 DM - Controlled E11.9 Insulin: No Tanya Rodrigues December 11, 2024 9:24 AM [facility]03-[facility] Progress note Author Sebas Lord [facility] Note Date/Time December 10, 2024 2:1 0pm [facility] [address] [place] [id number] Progress Note - Wound Care 12/10/24 1409 MR#: [id number] Acct: [id number] Name: NANCI RODRIGUEZ Rep #:[id number] : 1980 44 From: Se[facility] PCP: Dr. Rodri Chauhan MD Status:RE G RCR Location: History of Present Illness Date of Service: 12/10/24 Chief Complaint: Ulceration right posterior leg History of Wound: Ulceration right posterior leg Progress of Wound: Healed right calf ulcer Subjective Subjective Ms. Rodriguez is a 44-year-old diabetic female presented wound care center today for follow-up evaluation of full-thickness wound to the posterior right calf area. Patient has been compliant with multilayer compression bandage and pumping at home. She states her blood sugars well-controlled. She does not smoke or vape anymore at this time. Her wound is now healed. Denies trauma. Denies constitutional symptoms. No other pedal complaints at this time. Objective Data Objective Data Vital Signs: Vital Signs Temp Pulse Resp BP O2 Del Method 97.8 F 107 H 16 139/90 H Room Air 12/10/24 10:09 12/10/24 10:12/10/24 10:12/10/24 10:11/19/24 11:49 Oxygen Delivery Method Room Air Weight: 160.223 kg Body Mass Index (BMI) 62.5 Physical Exam Narrative Vascular: DP and PT pulses palpable. CFT is brisk. Nonpitting edema appreciated to right lower extremity. No erythema. Skin temperature gradient is warm to warm from proximal ankles to distal digit, no focal increase appreciated. Neurological: Light touch intact. Patient response to painful stimuli. Dermatological: Full-thickness wound to right posterior calf is now healed. No periwound maceration. Musculoskeletal: No pain with calf compression. No pain to palpation full- thickness ulceration right calf. Right: Calf circumference is 4 cm, ankle circumference 30.5 cm length of the right lower extremity 36 cm. Left: Calf circumference 59.7 cm, ankle circumference 32.4 cm, length of left lower extremity 36.0 cm. Debridement Note Debridement Note Post-Debridement Measurements and Additional Note: Post-Debridement Measurements/Treatment PANCHITO - Nurse 1 - General Ulcer Assessment Start: 11/18/24 15:28 Freq: Status: Active Protocol: WATSON Activity Type Activity Date Activity User E-sign Co-sign Detail Recorded Client Recorded Date Recorded By Document 11/19/24 11:49 MT [id number] 11/19/24 11:51 MT Document 11/26/24 09:29 DL [id number] 11/26/24 09:41 DL Document 12/03/24 10:07 RB [id number] 12/03/24 10:10 RB Document 12/10/24 10:09 ML [id number] 12/10/24 10:17 ML 11/19/24 11/26/24 12/03/24 11:49 09:29 10:07 - Today's Visit Information Type of service Follow-up Visit Nurse-only Nurse-only (Physician/SENIOR TRAINER Visit Visit ) Arrival Mode Ambulatory Ambulatory Ambulatory Transfer Assistance None None Accompanied by self Patient Identification Verified (Name & Yes Yes Yes ) Patient Requires Transmission-Based No No Precautions Safety Precautions Fall Prevention Height and Weight Body Mass Index (BMI) 62.5 62.5 62.5 BMI Classification Obese Obese Obese Vital Signs Temperature (97.8 F-99.1 F) 98 F 96.9 F L 97.1 F L Temperature Source Temporal Temporal Temporal Pulse Rate (60-100) 111 H 109 H 111 H Pulse Location Monitor Monitor Monitor Respiratory Rate (12-18) 18 22 H 18 Respiratory rate source Observation Observation Observation Oxygen Delivery Method Room Air Blood Pressure (90/60-120/80) 142/99 H 157/85 H 178/99 H Blood Pressure Mean (mm Hg) 113 109 125 Source Monitor Monitor Monitor Position Sitting Semi-Fowlers Blood Pressure Location Left Arm Left Arm History Since Last Visit- (Skip if this is Patient's initial visit) Have you changed medications since your No No last visit? Any new allergies or adverse reactions No No Had a fall/change in ADL's that may No No increase risk of falls Signs or symptoms of abuse and/or No No neglect since last visit Have you been in the hospital since your No No last visit? Has dressing in place as prescribed Yes Yes Yes Has compression in place as prescribed Yes Yes Yes Has offloadiing in place as prescribed Yes N/A N/A Experienced any changes in pain level or Yes No No management Left Footwear Regular Shoe Regular Shoe Right Footwear Regular Shoe Regular Shoe Pain Scale: 0-10 Numeric Is Patient Pain Free? Yes Yes Yes 12/10/24 10:09 WC - Today's Visit Information Type of service Follow-up Visit (Physician/SENIOR TRAINER ) Arrival Mode Ambulatory Transfer Assistance None Accompanied by Patient Identification Verified (Name & Yes ) Patient Requires Transmission-Based No Precautions Safety Precautions Height and Weight Body Mass Index (BMI) 62.5 BMI Classification Obese Vital Signs Temperature (97.8 F-99.1 F) 97.8 F Temperature Source Temporal Pulse Rate (60-100) 107 H Pulse Location Monitor Respiratory Rate (12-18) 16 Respiratory rate source Observation Oxygen Delivery Method Blood Pressure (90/60-120/80) 139/90 H Blood Pressure Mean (mm Hg) 106 Source Monitor Position Sitting Blood Pressure Location Left Forearm History Since Last Visit- (Skip if this is Patient's initial visit) Have you changed medications since your No last visit? Any new allergies or adverse reactions No Had a fall/change in ADL's that may No increase risk of falls Signs or symptoms of abuse and/or No neglect since last visit Have you been in the hospital since your No last visit? Has dressing in place as prescribed No Has compression in place as prescribed No Has offloadiing in place as prescribed N/A Experienced any changes in pain level or No management Left Footwear Right Footwear Pain Scale: 0-10 Numeric Is Patient Pain Free? Yes WC - Nurse 1 - General Ulcer Measurement Start: 11/18/24 15:28 Freq: Status: Active Protocol: Activity Type Activity Date Activity User E-sign Co-sign Detail Recorded Client Recorded Date Recorded By Document 11/19/24 11:49 MT [id number] 11/19/24 11:51 MT Edit Result 11/19/24 11:49 MT (1) [id number] 11/19/24 11:55 MT Document 11/26/24 09:29 DL [id number] 11/26/24 09:41 DL Document 12/03/24 10:07 RB [id number] 12/03/24 10:10 RB Document 12/10/24 10:09 ML [id number] 12/10/24 10:17 ML (1) Right Calf (cm) 65 => 64 11/19/24 11/26/24 12/03/24 11:49 09:29 10:07 Wound Center Nurse 1 Lower Limb Edema Present Yes Right Calf (cm) 64 61 62 Right Ankle (cm) 30.5 28.6 31.5 Left Calf (cm) 59.7 Left Ankle (cm) 32.6 12/10/24 10:09 Wound Center Nurse 1 Lower Limb Edema Present Right Calf (cm) 64.5 Right Ankle (cm) 31.5 Left Calf (cm) Left Ankle (cm) WC - Nurse 2 - General Ulcer CM Notes Start: 11/18/24 15:28 Freq: Status: Active Protocol: Activity Type Activity Date Activity User E-sign Co-sign Detail Recorded Client Recorded Date Recorded By Document 11/19/24 12:16 JF [id number] 11/19/24 12:16 JF Document 12/10/24 10:50 JF [id number] 12/10/24 10:51 JF 11/19/24 12/10/24 12:16 10:50 Pain Scale: 0-10 Numeric Is Patient Pain Free? Yes Yes - Nurse 3 - General Ulcer D/C NN Start: 11/18/24 15:28 Freq: Status: Active Protocol: Activity Type Activity Date Activity User E-sign Co-sign Detail Recorded Client Recorded Date Recorded By Document 11/19/24 12:26 GM [id number] 11/19/24 12:26 GM Document 11/26/24 09:29 DL [id number] 11/26/24 09:41 DL Document 12/03/24 10:07 RB [id number] 12/03/24 10:10 RB Document 12/10/24 11:08 KW [id number] 12/10/24 11:08 KW 11/19/24 11/26/24 12/03/24 12:26 09:29 10:07 Wound Care Center Nurse 3 Right Lower Leg -Lotion applied to leg before Yes Yes compression wrap -Multi-Layered Wrap Application Multi-Layer Multi-Layer Multi-Layer Comp - Right ($ Comp - Right ($ Comp - Right ($ ) ) ) -Tubular Bandage -Size of Tubigrip Used -Size F ($) -Multi-Layer Compression Right (Qty 1 1 1 applied) Treatment Response Procedure Procedure Tolerated Well Tolerated Well Pain Scale: 0-10 Numeric Is Patient Pain Free? Yes Yes Yes WC - Visit Discharge Discharge Condition Stable Stable Stable Ambulatory Status Ambulatory Ambulatory Ambulatory Transportation Private Auto Private Auto Private Auto Medication Reconcilliation completed & No provided to patient/care provider Clinical Summary of Care Provided Yes Notes: abd pad around ankle for crease in ankle , abd RLE posterior 12/10/24 11:08 Wound Care Center Nurse 3 Right Lower Leg -Lotion applied to leg before compression wrap -Multi-Layered Wrap Application -Tubular Bandage Double Layer -Size of Tubigrip Used Size F -Size F ($) 2 -Multi-Layer Compression Right (Qty applied) Treatment Response Pain Scale: 0-10 Numeric Is Patient Pain Free? Yes WC - Visit Discharge Discharge Condition Stable Ambulatory Status Ambulatory Transportation Private Auto Medication Reconcilliation completed & No provided to patient/care provider Clinical Summary of Care Provided Yes Notes: Assessment/Plan Assessment/Plan (1) Non-pressure chronic ulcer of unspecified part of right lower leg with fat layer exposed: CODE(S): L97.912 - Non-pressure chronic ulcer of unspecified part of rightlower leg with fat layer exposed PLAN: Patient was examined and evaluated. All findings were discussed with the patient. All questions were answered to the patient satisfaction. At this time the patient's full-thickness wound in the right posterior calf is now healed. Encouraged the patient continue to wear double layer Tubigrip untilshe can get her multilayer compression CircAid. She was also encouraged to continue to pump up to 3 times or more per day which she is understanding of. She is to continue strict blood sugar control. At this time the patient will be discharged from the wound care center to follow-up as needed. She left the office pleased the visit. (2) Lymphedema, not elsewhere classified: CODE(S): I89.0 - Lymphedema, not elsewhere classified 12/10/24 1410 <Electronically signed by Sebas Lord DPM> Cosigner Signature (if applicable): CC: ~ Signed [facility] Work Phone: [phone] 548-387803-26-2025 Progress note [facility] [address] [place] [address] Progress Note - Wound Care 12/10/24 1409 MR#: [id number] Acct: [id number] Name: NANCI RODRIGUEZ Rep #:[id number] : 1980 44 From: Sebas BEST PCP: Dr. Rodri Chauhan MD Status:RE G RCR Location: History of Present Illness Date of Service: 12/10/24 Chief Complaint: Ulceration right posterior leg History of Wound: Ulceration right posterior leg Progress of Wound: Healed right calf ulcer Subjective Subjective Ms. Rodriguez is a 44-year-old diabetic female presented wound care center today for follow-up evaluation of full-thickness wound to the posterior right calf area. Patient has been compliant with multilayer compression bandage and pumping at home. She states her blood sugars well-controlled. She does not smoke or vape anymore at this time. Her wound is now healed. Denies trauma. Denies constitutional symptoms. No other pedal complaints at this time. Objective Data Objective Data Vital Signs: Vital Signs Temp Pulse Resp BP O2 Del Method 97.8 F 107 H 16 139/90 H Room Air 12/10/24 10:09 12/10/24 10:09 12/10/24 10:09 12/10/24 10:09 11/19/24 11:49 Oxygen Delivery Method Room Air Weight: 160.223 kg Body Mass Index (BMI) 62.5 Physical Exam Narrative Vascular: DP and PT pulses palpable. CFT is brisk. Nonpitting edema appreciated to right lower extremity. No erythema. Skin temperature gradient is warm to warm from proximal ankles to distal digit, no focal increase appreciated. Neurological: Light touch intact. Patient response to painful stimuli. Dermatological: Full-thickness wound to right posterior calf is now healed. No periwound maceration. Musculoskeletal: No pain with calf compression. No pain to palpation full- thickness ulceration right calf. Right: Calf circumference is 4 cm, ankle circumference 30.5 cm length of the right lower extremity 36 cm. Left: Calf circumference 59.7 cm, ankle circumference 32.4 cm, length of left lower extremity 36.0 cm. Debridement Note Debridement Note Post-Debridement Measurements and Additional Note: Post-Debridement Measurements/Treatment - Nurse 1 - General Ulcer Assessment Start: 11/18/24 15:28 Freq: Status: Active Protocol: WATSON Activity Type Activity Date Activity User E-sign Co-sign Detail Recorded Client Recorded Date Recorded By Document 11/19/24 11:49 MT [id number] 11/19/24 11:51 MT Document 11/26/24 09:29 DL [id number] 11/26/24 09:41 DL Document 12/03/24 10:07 RB [id number] 12/03/24 10:10 RB Document 12/10/24 10:09 ML [id number] 12/10/24 10:17 ML 11/19/24 11/26/24 12/03/24 11:49 09:29 10:07 - Today's Visit Information Type of service Follow-up Visit Nurse-only Nurse-only (Physician/SENIOR TRAINER Visit Visit ) Arrival Mode Ambulatory Ambulatory Ambulatory Transfer Assistance None None Accompanied by self Patient Identification Verified (Name & Yes Yes Yes ) Patient Requires Transmission-Based No No Precautions Safety Precautions Fall Prevention Height and Weight Body Mass Index (BMI) 62.5 62.5 62.5 BMI Classification Obese Obese Obese Vital Signs Temperature (97.8 F-99.1 F) 98 F 96.9 F L 97.1 F L Temperature Source Temporal Temporal Temporal Pulse Rate (60-100) 111 H 109 H 111 H Pulse Location Monitor Monitor Monitor Respiratory Rate (12-18) 18 22 H 18 Respiratory rate source Observation Observation Observation Oxygen Delivery Method Room Air Blood Pressure (90/60-120/80) 142/99 H 157/85 H 178/99 H Blood Pressure Mean (mm Hg) 113 109 125 Source Monitor Monitor Monitor Position Sitting Semi-Fowlers Blood Pressure Location Left Arm Left Arm History Since Last Visit- (Skip if this is Patient's initial visit) Have you changed medications since your No No last visit? Any new allergies or adverse reactions No No Had a fall/change in ADL's that may No No increase risk of falls Signs or symptoms of abuse and/or No No neglect since last visit Have you been in the hospital since your No No last visit? Has dressing in place as prescribed Yes Yes Yes Has compression in place as prescribed Yes Yes Yes Has offloadiing in place as prescribed Yes N/A N/A Experienced any changes in pain level or Yes No No management Left Footwear Regular Shoe Regular Shoe Right Footwear Regular Shoe Regular Shoe Pain Scale: 0-10 Numeric Is Patient Pain Free? Yes Yes Yes 12/10/24 10:09 - Today's Visit Information Type of service Follow-up Visit (Physician/SENIOR TRAINER ) Arrival Mode Ambulatory Transfer Assistance None Accompanied by Patient Identification Verified (Name & Yes ) Patient Requires Transmission-Based No Precautions Safety Precautions Height and Weight Body Mass Index (BMI) 62.5 BMI Classification Obese Vital Signs Temperature (97.8 F-99.1 F) 97.8 F Temperature Source Temporal Pulse Rate (60-100) 107 H Pulse Location Monitor Respiratory Rate (12-18) 16 Respiratory rate source Observation Oxygen Delivery Method Blood Pressure (90/60-120/80) 139/90 H Blood Pressure Mean (mm Hg) 106 Source Monitor Position Sitting Blood Pressure Location Left Forearm History Since Last Visit- (Skip if this is Patient's initial visit) Have you changed medications since your No last visit? Any new allergies or adverse reactions No Had a fall/change in ADL's that may No increase risk of falls Signs or symptoms of abuse and/or No neglect since last visit Have you been in the hospital since your No last visit? Has dressing in place as prescribed No Has compression in place as prescribed No Has offloadiing in place as prescribed N/A Experienced any changes in pain level or No management Left Footwear Right Footwear Pain Scale: 0-10 Numeric Is Patient Pain Free? Yes WC - Nurse 1 - General Ulcer Measurement Start: 11/18/24 15:28 Freq: Status: Active Protocol: Activity Type Activity Date Activity User E-sign Co-sign Detail Recorded Client Recorded Date Recorded By Document 11/19/24 11:49 MT [id number] 11/19/24 11:51 MT Edit Result 11/19/24 11:49 MT (1) [id number] 11/19/24 11:55 MT Document 11/26/24 09:29 DL [id number] 11/26/24 09:41 DL Document 12/03/24 10:07 RB [id number] 12/03/24 10:10 RB Document 12/10/24 10:09 ML [id number] 12/10/24 10:17 ML (1) Right Calf (cm) 65 => 64 11/19/24 11/26/24 12/03/24 11:49 09:29 10:07 Wound Center Nurse 1 Lower Limb Edema Present Yes Right Calf (cm) 64 61 62 Right Ankle (cm) 30.5 28.6 31.5 Left Calf (cm) 59.7 Left Ankle (cm) 32.6 12/10/24 10:09 Wound Center Nurse 1 Lower Limb Edema Present Right Calf (cm) 64.5 Right Ankle (cm) 31.5 Left Calf (cm) Left Ankle (cm) - Nurse 2 - General Ulcer CM Notes Start: 11/18/24 15:28 Freq: Status: Active Protocol: Activity Type Activity Date Activity User E-sign Co-sign Detail Recorded Client Recorded Date Recorded By Document 11/19/24 12:16 JF [id number] 11/19/24 12:16 JF Document 12/10/24 10:50 JF [id number] 12/10/24 10:51 JF 11/19/24 12/10/24 12:16 10:50 Pain Scale: 0-10 Numeric Is Patient Pain Free? Yes Yes - Nurse 3 - General Ulcer D/C NN Start: 11/18/24 15:28 Freq: Status: Active Protocol: Activity Type Activity Date Activity User E-sign Co-sign Detail Recorded Client Recorded Date Recorded By Document 11/19/24 12:26 GM [id number] 11/19/24 12:26 GM Document 11/26/24 09:29 DL [id number] 11/26/24 09:41 DL Document 12/03/24 10:07 RB [id number] 12/03/24 10:10 RB Document 12/10/24 11:08 KW [id number] 12/10/24 11:08 KW 11/19/24 11/26/24 12/03/24 12:26 09:29 10:07 Wound Care Center Nurse 3 Right Lower Leg -Lotion applied to leg before Yes Yes compression wrap -Multi-Layered Wrap Application Multi-Layer Multi-Layer Multi-Layer Comp - Right ($ Comp - Right ($ Comp - Right ($ ) ) ) -Tubular Bandage -Size of Tubigrip Used -Size F ($) -Multi-Layer Compression Right (Qty 1 1 1 applied) Treatment Response Procedure Procedure Tolerated Well Tolerated Well Pain Scale: 0-10 Numeric Is Patient Pain Free? Yes Yes Yes - Visit Discharge Discharge Condition Stable Stable Stable Ambulatory Status Ambulatory Ambulatory Ambulatory Transportation Private Auto Private Auto Private Auto Medication Reconcilliation completed & No provided to patient/care provider Clinical Summary of Care Provided Yes Notes: abd pad around ankle for crease in ankle , abd RLE posterior 12/10/24 11:08 Wound Care Center Nurse 3 Right Lower Leg -Lotion applied to leg before compression wrap -Multi-Layered Wrap Application -Tubular Bandage Double Layer -Size of Tubigrip Used Size F -Size F ($) 2 -Multi-Layer Compression Right (Qty applied) Treatment Response Pain Scale: 0-10 Numeric Is Patient Pain Free? Yes - Visit Discharge Discharge Condition Stable Ambulatory Status Ambulatory Transportation Private Auto Medication Reconcilliation completed & No provided to patient/care provider Clinical Summary of Care Provided Yes Notes: Assessment/Plan Assessment/Plan (1) Non-pressure chronic ulcer of unspecified part of right lower leg with fat layer exposed: CODE(S): L97.912 - Non-pressure chronic ulcer of unspecified part of rightlower leg with fat layer exposed PLAN: Patient was examined and evaluated. All findings were discussed with the patient. All questions were answered to the patient satisfaction. At this time the patient's full-thickness wound in the right posterior calf is now healed. Encouraged the patient continue to wear double layer Tubigrip untilshe can get her multilayer compression CircAid. She was also encouraged to continue to pump up to 3 times or more per day which she is understanding of. She is to continue strict blood sugar control. At this time the patient will be discharged from the wound care center to follow-up as needed. She left the office pleased the visit. (2) Lymphedema, not elsewhere classified: CODE(S): I89.0 - Lymphedema, not elsewhere classified 12/10/24 1410 Cosigner Signature (if applicable): CC: ~ Signed [facility]03-26-2025 Evaluation note* Diagnosis Onset Date Resolution Status Admit Date Lymphedema, not elsewhere classified acute December 10, 2024 10:15am 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 December 10, 2024 10:15am Degenerative disc disease (D DD) of lumbar region with discogenic back pain acute January 30, 2025 2 :06pm Lumbar radiculopathy acute January 30, 2025 2:06pm Lymphedema acute March 11 10:15am 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 March 11, 2025 10:15am [facility] Work Phone: [phone] Telephone encounter Note* Telephone Encounter - Herlinda Gaines - 12/08/2024 3:03 PM EDT Prescription Refill Information The patient has been identified by name and date of : Yes Caregiver verified no other encounters exist for this prescription request: Yes Caregiver confirmed with patient/requestor that no other refills are due, in the near future, with this provider at this time: Yes The last office visit in the department: 10/20/2024 Does the patient have a future office visit with this provider/department: Yes Requested Prescriptions Pending Prescriptions Disp Refills Lancets 100 Each 11 Sig: Test blood sugar(s) once times daily. Dx: Type 2 DM - Controlled E11.9 Insulin: No Herlinda Gaines December 08, 2024 3:05 PM [facility]03-24-2025 Miscellaneous Notes* Telephone Encounter - Herlinda Gaines - 12/08/2024 3:03 PM EDT Prescription Refill Information The patient has been identified by name and date of : Yes Caregiver verified no other encounters exist for this prescription request: Yes Caregiver confirmed with patient/requestor that no other refills are due, in the near future, with this provider at this time: Yes The last office visit in the department: 10/20/2024 Does the patient have a future office visit with this provider/department: Yes Requested Prescriptions Pending Prescriptions Disp Refills Lancets 100 Each 11 Sig: Test blood sugar(s) once times daily. Dx: Type 2 DM - Controlled E11.9 Insulin: No Herlinda Gaines December 08, 2024 3:05 PM [facility] Telephone encounter Note * Telephone Encounter - Herlinda Gaines - 12/02/2024 4:40 PM EDT Prescription Refill Information The patient has been identified by name and date of : Yes Caregiver verified no other encounters exist for this prescription request: Yes Caregiver confirmed with patient/requestor that no other refills are due, in the near future, with this provider at this time: Yes The last office visit in the department: 10/20/2024 Does the patient have a future office visit with this provider/department: Yes Requested Prescriptions Pending Prescriptions Disp Refills dulaglutide (TRULICITY) 1.5 mg/0.5 mL pen injector 2 mL 2 Sig: Inject 1.5 mg subcutaneously one time a week. Inject dose once per week. Discard Pen After [facility] [address] [place] [phone] - [phone] Mata - [phone] [address] Gaines December 02, 2024 4:42 PM [facility]03-18-2025 Miscellaneous Notes* Telephone Encounter - Herlinda Gaines - 12/02/2024 4:40 PM EDT Prescription Refill Information The patient has been identified by name and date of : Yes Caregiver verified no other encounters exist for this prescription request: Yes Caregiver confirmed with patient/requestor that no other refills are due, in the near future, with this provider at this time: Yes The last office visit in the department: 10/20/2024 Does the patient have a future office visit with this provider/department: Yes Requested Prescriptions Pending Prescriptions Disp Refills dulaglutide (TRULICITY) 1.5 mg/0.5 mL pen injector 2 mL 2 Sig: Inject 1.5 mg subcutaneously one time a week. Inject dose once per week. Discard Pen After [facility] [address] [place] [phone] - [phone] Mata - [phone] [address] December 02, 2024 4:42 PM documented in this encounterDay[facility] Telephone encounter Note * Telephone Encounter - Marielena Elias - 11/25/2024 3:00 PM EDT Prescription Refill Information The patient has been identified by name and date of : Yes Caregiver verified no other encounters exist for this prescription request: Yes Caregiver confirmed with patient/requestor that no other refills are due, in the near future, with this provider at this time: Yes The last office visit in the department: Does the patient have a future office visit with this provider/department: Yes Patient is requesting a script for 800 mg Ibuprofen rather than the Naproxen for her hip pain Requested Prescriptions Pending Prescriptions Disp Refills cyclobenzaprine (FLEXERIL) 10 mg tablet 30 tablet 2 Sig: Take 1 tablet by mouth three times a day as needed for muscle spasm. May make drowsy Marielena Jael Rodrigues November 25, 2024 3:01 PM [facility]03-11-2025 Miscellaneous Notes* Telephone Encounter - Marielena Elias - 11/25/2024 3:00 PM EDT Prescription Refill Information The patient has been identified by name and date of : Yes Caregiver verified no other encounters exist for this prescription request: Yes Caregiver confirmed with patient/requestor that no other refills are due, in the near future, with this provider at this time: Yes The last office visit in the department: Does the patient have a future office visit with this provider/department: Yes Patient is requesting a script for 800 mg Ibuprofen rather than the Naproxen for her hip pain Requested Prescriptions Pending Prescriptions Disp Refills cyclobenzaprine (FLEXERIL) 10 mg tablet 30 tablet 2 Sig: Take 1 tablet by mouth three times a day as needed for muscle spasm. May make drowsy Marielena Jael Rodrigues November 25, 2024 3:01 PM documented in this encounterDayton [facility]-2025 Telephone encounter Note * Telephone Encounter - Sharmaine Packer - 11/24/2024 9:33 AM EDT Prescription Refill Information The patient has been identified by name and date of : Yes Caregiver verified no other encounters exist for this prescription request: Yes Caregiver confirmed with patient/requestor that no other refills are due, in the near future, with this provider at this time: Yes NOTE: patient meter is [employer] please send these test strips as that brand The last office visit in the department: 11/09/2024 Does the patient have a future office visit with this provider/department: Yes Requested Prescriptions Pending Prescriptions Disp Refills blood sugar diagnostic (BLOOD GLUCOSE TEST) test strip 50 Strip 11 Sig: Test blood sugar(s) one time daily. Dx: Type 2 DM - Controlled E11.9 Insulin: No [place]armaine [place] November 24, 2024 9:34 AM [facility]03-10-2025 Miscellaneous Notes* Telephone Encounter - Sharmaine Packer - 11/24/2024 9:33 AM EDT Prescription Refill Information The patient has been identified by name and date of : Yes Caregiver verified no other encounters exist for this prescription request: Yes Caregiver confirmed with patient/requestor that no other refills are due, in the near future, with this provider at this time: Yes NOTE: patient meter is [employer] please send these test strips as that brand The last office visit in the department: 11/09/2024 Does the patient have a future office visit with this provider/department: Yes Requested Prescriptions Pending Prescriptions Disp Refills blood sugar diagnostic (BLOOD GLUCOSE TEST) test strip 50 Strip 11 Sig: Test blood sugar(s) one time daily. Dx: Type 2 DM - Controlled E11.9 Insulin: No Sharmaine Renner November 24, 2024 9:34 AM documented in this encounterDayton [facility]03-[facility]-2025 Progress note Author Sebas Lord [facility] Note Date/Time November 19, 2024 7:51 pm [facility] [address] [place] [id number] Progress Note - Wound Care 11/19/24 1412 MR#: [id number] Acct: [id number] Name: NANCI RODRIGUEZ Rep #:[id number] : 1980 44 From: Sebas Dhaliwal PM PCP: Dr. Rodri Chauhan MD Status:RE Veronica RCR Location: History of Present Illness Date of Service: 11/19/24 Chief Complaint: Ulceration right posterior leg History of Wound: Ulceration right posterior leg Progress of Wound: Healed right calf ulcer Subjective Subjective Ms. Rodriguez is a 44-year-old diabetic female presenting the wound care center today for follow-up evaluation of full-thickness wound to the posterior aspect of the right calf. Patient wound is healed. She is pumping with intermittent pneumatic pumps 2 times per day. She is wearing compression whenever she is ambulatory. Her blood sugars well-controlled. She denies any trauma or open wounds. Denies constitutional symptoms. No other pedal complaints at this time. Objective Data Objective Data Vital Signs: Vital Signs Temp Pulse Resp BP O2 Del Method 98 F 111 H 18 142/99 H Room Air 11/19/24 11:49 11/19/24 11:49 11/19/24 11:49 11/19/24 11:49 11/19/24 11:49 Oxygen Delivery Method Room Air Weight: 160.223 kg Body Mass Index (BMI) 62.5 Physical Exam Narrative Vascular: DP and PT pulses palpable. CFT is brisk. Nonpitting edema appreciated to right lower extremity. No erythema. Skin temperature gradient is warm to warm from proximal ankles to distal digit, no focal increase appreciated. Neurological: Light touch intact. Patient response to painful stimuli. Dermatological: Evidence of improved periwound maceration to the right posteriorcalf area. Full-thickness wound is now healed. Musculoskeletal: No pain with calf compression. No pain to palpation full- thickness ulceration right calf. Right: Calf circumference is 4 cm, ankle circumference 30.5 cm length of the right lower extremity 36 cm. Left: Calf circumference 59.7 cm, ankle circumference 32.4 cm, length of left lower extremity 36.0 cm. Debridement Note Debridement Note Post-Debridement Measurements and Additional Note: Post-Debridement Measurements/Treatment - Nurse 1 - General Ulcer Assessment Start: 11/18/24 15:28 Freq: Status: Active Protocol: WATSON Activity Type Activity Date Activity User E-sign Co-sign Detail Recorded Client Recorded Date Recorded By Document 11/19/24 11:49 TX [id number] 11/19/24 11:51 TX 11/19/24 11:49 - Today's Visit Information Type of service Follow-up Visit (Physician/SENIOR TRAINER ) Arrival Mode Ambulatory Accompanied by self Patient Identification Verified (Name & Yes ) Safety Precautions Fall Prevention Height and Weight Body Mass Index (BMI) 62.5 BMI Classification Obese Vital Signs Temperature (97.8 F-99.1 F) 98 F Temperature Source Temporal Pulse Rate (60-100) 111 H Pulse Location Monitor Respiratory Rate (12-18) 18 Respiratory rate source Observation Oxygen Delivery Method Room Air Blood Pressure (90/60-120/80) 142/99 H Blood Pressure Mean (mm Hg) 113 Source Monitor Position Sitting Blood Pressure Location Left Arm History Since Last Visit- (Skip if this is Patient's initial visit) Has dressing in place as prescribed Yes Has compression in place as prescribed Yes Has offloadiing in place as prescribed Yes Experienced any changes in pain level or Yes management Left Footwear Regular Shoe Right Footwear Regular Shoe Pain Scale: 0-10 Numeric Is Patient Pain Free? Yes - Nurse 1 - General Ulcer Measurement Start: 11/18/24 15:28 Freq: Status: Active Protocol: Activity Type Activity Date Activity User E-sign Co-sign Detail Recorded Client Recorded Date Recorded By Document 11/19/24 11:49 MT [id number] 11/19/24 11:51 MT Edit Result 11/19/24 11:49 MT (1) [id number] 11/19/24 11:55 MT (1) Right Calf (cm) 65 => 64 11/19/24 11:49 Wound Center Nurse 1 Right Calf (cm) 64 Right Ankle (cm) 30.5 Left Calf (cm) 59.7 Left Ankle (cm) 32.6 - Nurse 2 - General Ulcer CM Notes Start: 11/18/24 15:28 Freq: Status: Active Protocol: Activity Type Activity Date Activity User E-sign Co-sign Detail Recorded Client Recorded Date Recorded By Document 11/19/24 12:16 [id number] 11/19/24 12:16 11/19/24 12:16 Pain Scale: 0-10 Numeric Is Patient Pain Free? Yes - Nurse 3 - General Ulcer D/C NN Start: 11/18/24 15:28 Freq: Status: Active Protocol: Activity Type Activity Date Activity User E-sign Co-sign Detail Recorded Client Recorded Date Recorded By Document 11/19/24 12:26 [id number] 11/19/24 12:26 11/19/24 12:26 Wound Care Center Nurse 3 Right Lower Leg -Lotion applied to leg before Yes compression wrap -Multi-Layered Wrap Application Multi-Layer Comp - Right ($ ) -Multi-Layer Compression Right (Qty 1 applied) Pain Scale: 0-10 Numeric Is Patient Pain Free? 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 All findings were discussed with the patient. All questions were answered to the patient satisfaction. The patient is showing healing of the full-thickness wound to the right calf with stable surrounding skin. There is no open wound or lesion at this time. The patient will be dressed with a 3M layer multilayer compression bandage. Shewill follow- up weekly for nursing visits. She will continue to use her pneumatic pumps whenever she is sitting at home. Right: Calf circumference is 4 cm, ankle circumference 30.5 cm length of the right lower extremity 36 cm. Left: Calf circumference 59.7 cm, ankle circumference 32.4 cm, length of left lower extremity 36.0 cm. She will continue strict blood sugar control. She is very grateful for care. Patient will follow-up with Dr. Lord at the wound care center in 3 week. (2) Lymphedema, not elsewhere classified: CODE(S): I89.0 - Lymphedema, not elsewhere classified 11/19/242050 <Electronically signed by Sebas Lord DPM> Cosigner Signature (if applicable): CC: ~ Signed [facility] Work Phone: 1(247) 736-774903-05-2025 Progress note [facility] [address] [place] [address] Progress Note - Wound Care 11/19/24 1412 MR#: [id number] Acct: [id number] Name: NANCI RODRIGUEZ Rep #:[id number] : 1980 44 From: Sebas Dhaliwal PM PCP: Dr. Rodri Chauhan MD Status:HARI MORGAN Location: History of Present Illness Date of Service: 11/19/24 Chief Complaint: Ulceration right posterior leg History of Wound: Ulceration right posterior leg Progress of Wound: Healed right calf ulcer Subjective Subjective Ms. Rodriguez is a 44-year-old diabetic female presenting the wound care center today for follow-up evaluation of full-thickness wound to the posterior aspect of the right calf. Patient wound is healed.She is pumping with intermittent pneumatic pumps 2 times per day. She is wearing compression whenever she is ambulatory. Her blood sugars well-controlled. She denies any trauma or open wounds. Deniesconstitutional symptoms. No other pedal complaints at this time. Objective Data Objective Data Vital Signs: Vital Signs Temp Pulse Resp BP O2 Del Method 98 F 111 H 18 142/99 H Room Air 11/19/24 11:49 11/19/24 11:49 11/19/24 11:49 11/19/24 11:49 11/19/24 11:49 Oxygen Delivery Method Room Air Weight: 160.223 kg Body Mass Index (BMI) 62.5 Physical Exam Narrative Vascular: DP and PT pulses palpable. CFT is brisk. Nonpitting edema appreciated to right lower extremity. No erythema. Skin temperature gradient is warm to warm from proximal ankles to distal digit, no focal increase appreciated. Neurological: Light touch intact. Patient response to painful stimuli. Dermatological: Evidence of improved periwound maceration to the right posteriorcalf area. Full-thickness wound is now healed. Musculoskeletal: No pain with calf compression. No pain to palpation full- thickness ulceration right calf. Right: Calf circumference is 4 cm, ankle circumference 30.5 cm length of the right lower extremity 36 cm. Left: Calf circumference 59.7 cm, ankle circumference 32.4 cm, length of left lower extremity 36.0 cm. Debridement Note Debridement Note Post-Debridement Measurements and Additional Note: Post-Debridement Measurements/Treatment - Nurse 1 - General Ulcer Assessment Start: 11/18/24 15:28 Freq: Status: Active Protocol: WATSON Activity Type Activity Date Activity User E-sign Co-sign Detail Recorded Client Recorded Date Recorded By Document 11/19/24 11:49 TX [id number] 11/19/24 11:51 TX 11/19/24 11:49 - Today's Visit Information Type of service Follow-up Visit (Physician/SENIOR TRAINER ) Arrival Mode Ambulatory Accompanied by self Patient Identification Verified (Name & Yes ) Safety Precautions Fall Prevention Height and Weight Body Mass Index (BMI) 62.5 BMI Classification Obese Vital Signs Temperature (97.8 F-99.1 F) 98 F Temperature Source Temporal Pulse Rate (60-100) 111 H Pulse Location Monitor Respiratory Rate (12-18) 18 Respiratory rate source Observation Oxygen Delivery Method Room Air Blood Pressure (90/60-120/80) 142/99 H Blood Pressure Mean (mm Hg) 113 Source Monitor Position Sitting Blood Pressure Location Left Arm History Since Last Visit- (Skip if this is Patient's initial visit) Has dressing in place as prescribed Yes Has compression in place as prescribed Yes Has offloadiing in place as prescribed Yes Experienced any changes in pain level or Yes management Left Footwear Regular Shoe Right Footwear Regular Shoe Pain Scale: 0-10 Numeric Is Patient Pain Free? Yes - Nurse 1 - General Ulcer Measurement Start: 11/18/24 15:28 Freq: Status: Active Protocol: Activity Type Activity Date Activity User E-sign Co-sign Detail Recorded Client Recorded Date Recorded By Document 11/19/24 11:49 MT [id number] 11/19/24 11:51 MT Edit Result 11/19/24 11:49 MT (1) [id number] 11/19/24 11:55 MT (1) Right Calf (cm) 65 => 64 11/19/24 11:49 Wound Center Nurse 1 Right Calf (cm) 64 Right Ankle (cm) 30.5 Left Calf (cm) 59.7 Left Ankle (cm) 32.6 - Nurse 2 - General Ulcer CM Notes Start: 11/18/24 15:28 Freq: Status: Active Protocol: Activity Type Activity Date Activity User E-sign Co-sign Detail Recorded Client Recorded Date Recorded By Document 11/19/24 12:16 [id number] 11/19/24 12:16 JF 11/19/24 12:16 Pain Scale: 0-10 Numeric Is Patient Pain Free? Yes - Nurse 3 - General Ulcer D/C NN Start: 11/18/24 15:28 Freq: Status: Active Protocol: Activity Type Activity Date Activity User E-sign Co-sign Detail Recorded Client Recorded Date Recorded By Document 11/19/24 12:26 [id number] 11/19/24 12:26 11/19/24 12:26 Wound Care Center Nurse 3 Right Lower Leg -Lotion applied to leg before Yes compression wrap -Multi-Layered Wrap Application Multi-Layer Comp - Right ($ ) -Multi-Layer Compression Right (Qty 1 applied) Pain Scale: 0-10 Numeric Is Patient Pain Free? 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 All findings were discussed with the patient. All questions were answered to the patient satisfaction. The patient is showing healing of the full-thickness wound to the right calf with stable surrounding skin. There is no open wound or lesion at this time. The patient will be dressed with a 3M layer multilayer compression bandage. Shewill follow-up weekly for nursing visits. She will continue to useher pneumatic pumps whenever she is sitting at home. Right: Calf circumference is 4 cm, ankle circumference 30.5 cm length of the right lower extremity 36 cm. Left: Calf circumference 59.7 cm, ankle circumference 32.4 cm, length of left lower extremity 36.0 cm. She will continue strict blood sugar control. She is very grateful for care. Patient will follow-up with Dr. Lord at the wound care center in 3 week. (2) Lymphedema, not elsewhere classified: CODE(S): I89.0 - Lymphedema, not elsewhere classified 11/19/242050 Cosigner Signature (if applicable): CC: ~ Signed [facility]02-27-2025 Telephone encounter Note* Telephone Encounter - Ana Myers MA - 11/13/2024 1:28 PM EST Spoke to [facility] armored car driver/PSS who will update patient's insurance/registation to avoid 1000 charge & will update patient on status. EDIT* PFA added & after review of account appointment will need to be cancelled d/t insurance correctly pulling krishna as primary. Patient will have to call to cancel [employer] primary coverage. Appointment will be rescheduled. PSS in contact with patient & will reschedule [facility] appt. Ana Myers MA [facility]02-27-2025 Miscellaneous Notes* Telephone Encounter - Ana Myers MA - 11/13/2024 1:28 PM EST Spoke to [facility] armored car driver/PSS who will update patient's insurance/registation to avoid 1000 charge & will update patient on status. EDIT* PFA added & after review of account appointment will need to be cancelled d/t insurance correctly pulling krishna as primary. Patient will have to call to cancel [employer] primary coverage. Appointment will be rescheduled. PSS in contact with patient & will reschedule [facility] appt. Ana Myers MA * Telephone Encounter - Suze Miller LPN - 11/11/2024 4:40 PM EST Pt calls to report she received a message that she might have to pay $1,[address] Jorge Driscoll with [facility] on 11/14/24. The referral was put through [employer] which is shown as pt's primaryinsurance. Pt reports she has never had [employer] and what she has is [employer] (shows as secondary insurance). Spoke to pt and transferred her to PSS to see if [employer] could be deactivated and [employer] put as primary. Pt's referral will need to be redone through [employer]. Referral originally was from Preeti Kaba CNP. Sent an email to [employer] who reports: [employer] ? Suze Miller; Sylwia Marcial If this patient now has [employer] then the registration will need to be updated. Thank you, Crystasl documented in this encounterDayton [facility]02-[facility]-2025 NoteHNO ID: [id number] Author: ERENDIRA NOE APRN.NARENDRA Service: ? Author Type: Nurse Practitioner Type: Progress Notes Filed: 11/13/2024 10:27 Note Text: Subjective Female with complaints of back pain. Patient says she has had this pain before. Patient says it does radiate a little bit down her left lower left leg. Patient says she has been diagnosed with a pinched nerve. Patient says it feels the same denies any difficulty urinating or having bowel movements. Denies any other symptoms. The history is provided by the patient. No speech/language therapist was used. Review of Systems Constitutional: Negative. Skin: Negative. Objective Physical Exam Constitutional: Appearance: Normal appearance. Pulmonary: Effort: Pulmonary effort is normal. Skin: Comments: Tender in the area marked above. ROM in normal limits. Sensation intact. Neurological: Mental Status: She is alert. PAST MEDICAL HISTORY Diagnosis Date Abnormal glandular [...] 11/07/2006 Right hip pain 12/15/2013 Unspecified asthma(493.90) PAST SURGICAL HISTORY Procedure Laterality Date BACK SURGERY HX Pain block COLONOSCOPY W/BIOPSY SINGLE/MULTIPLE 10/22/2017 EGD TRANSORAL BIOPSY SINGLE/MULTIPLE 10/22/2017 RPR UMBILICAL HRNA 5 YRS/> REDUCIBLE 10/05/[address] mesh VAGINOSCOPY ALLERGIES Penicillins, Melatonin, Tramadol, and Wellbutrin [Bupropion] MEDICATIONS metFORMIN (GLUCOPHAGE) 500 mg tablet Take 2 tablets by mouth two times a day with meals. Take one additional 500 mg tab with breakfast or lunch until BS less than 250 furosemide (LASIX) 40 mg tablet Take 1 tablet by mouth once daily. SUMAtriptan (IMITREX) 25 mg tablet Take 1 tablet by mouth at onset of headache and may repeat in 2 hrs if needed. promethazine (PHENERGAN) 12.5 mg tablet Take 1 tablet by mouth four times a day as needed for nausea/vomiting. loratadine (CLARITIN) 10 mg tablet Take 1 tablet by mouth once daily. cyclobenzaprine (FLEXERIL) 10 mg tablet Take 1 tablet by mouth three times a day as needed for muscle spasm. May make drowsy mometasone-formoterol (DULERA) 50-5 mcg/actuation HFA aerosol inhaler Inhale 1 Puff as instructed two times a day. Rinse mouth out after use. dulaglutide (TRULICITY) 0.75 mg/0.5 mL pen injector Inject 0.75 mg subcutaneously one time a week. Inject dose once per week. Discard Pen After celecoxib (CELEBREX) 200 mg capsule Take 1 capsule by mouth once daily. Take with food benzonatate (TESSALON PERLE) 100 mg capsule Take 1-2 capsules by mouth three times a day as needed. glimepiride (AMARYL) 4 mg tablet Take 1 tablet by mouth daily with breakfast. Dose change, take one daily montelukast (SINGULAIR) 10 mg tablet Take 1 tablet by mouth daily at bedtime. albuterol HFA (VENTOLIN HFA) 90 mcg/actuation inhaler Inhale 2 Puffs as instructed every 4 hours as needed. dulaglutide (TRULICITY) 1.5 mg/0.5 mL pen injector Inject 1.5 mg subcutaneously one time a week. Inject dose once per week. Discard Pen After ferrous sulfate 325 mg (65 mg iron) tablet Take 1 tablet by mouth every Sunday, Sunday, and Sunday. topiramate (TOPAMAX) 100 mg tablet Take 1 tablet by mouth two times a day. lansoprazole (PREVACID) 30 mg capsule Take 1 capsule by mouth daily before breakfast. pramipexole (MIRAPEX) 1.5 mg tablet Take 1 tablet by mouth daily at bedtime. QUEtiapine (SEROQUEL) 25 mg tablet Take 75 mg by mouth daily at bedtime. CPAP Needs replacement CPAP @ 15 cm of water with humidification. Mask (per patient preference) optional chin strap (if indicated) , filters, tubing, humidifier and lifetime supplies. G47.33 MARIA TERESA on CPAP lamoTRIgine (LAMICTAL) 200 mg tablet Take 1 tablet by mouth two times a day. diphenhydrAMINE (BENADRYL) 25 mg capsule Take 1 capsule by mouth every 6 hours as needed for itching/rash. glucose 4 gram chewable tablet Take 4 tablets by mouth as needed for low blood sugar. lidocaine (LIDODERM) 5 % Apply 1 Patch as directed every 24 hours. Remove after 12 hours. Lancets Test blood sugar(s) once times daily. Dx: Type 2 DM - Controlled E11.9 Insulin: No blood sugar diagnostic (BLOOD GLUCOSE TEST) test strip Test blood sugar(s) one time daily. Dx: Type 2 DM - Controlled E11.9 Insulin: No silver sulfADIAZINE (SILVADENE) 1 % cream Apply 1 application to affected area once daily. (Patient not taking: Reported on 11/13/2024) Hernan (more content not included)...[facility]02-27-2025 History of Present illness Narrative* Erendira Noe APRN.[facility] - 11/13/2024 10:23 AM EST Images from the original note were not included. Subjective Female with complaints of back pain. Patient says she has had this pain before. Patient says it does radiate a little bit down her left lower left leg. Patient says she has been diagnosed with a pinched nerve. Patient says it feels the same denies any difficulty urinating or having bowel movements.Denies any other symptoms. The history is provided by the patient. No speech/language therapist was used. Review of Systems Constitutional: Negative. Skin: Negative. Objective Physical Exam Constitutional: Appearance: Normal appearance. Pulmonary: Effort: Pulmonary effort is normal. Skin: Comments: Tender in the area marked above. ROM in normal limits. Sensation intact. Neurological: Mental Status: She is alert. PAST MEDICAL HISTORY Diagnosis Date Abnormal glandular [...] 11/07/2006 Right hip pain 12/15/2013 Unspecified asthma(493.90) PAST SURGICAL HISTORY Procedure Laterality Date BACK SURGERY HX Pain block COLONOSCOPY W/BIOPSY SINGLE/MULTIPLE 10/22/2017 EGD TRANSORAL BIOPSY SINGLE/MULTIPLE 10/22/2017 RPR UMBILICAL HRNA 5 YRS/> REDUCIBLE 10/05/[address] mesh VAGINOSCOPY ALLERGIES Penicillins, Melatonin, Tramadol, and Wellbutrin [Bupropion] MEDICATIONS metFORMIN (GLUCOPHAGE) 500 mg tablet Take 2 tablets by mouth two times a day with meals. Take one additional 500 mg tab with breakfast or lunch until BS less than 250 furosemide (LASIX) 40 mg tablet Take 1 tablet by mouth once daily. SUMAtriptan (IMITREX) 25 mg tablet Take 1 tablet by mouth at onset of headache and may repeat in 2 hrs if needed. promethazine (PHENERGAN) 12.5 mg tablet Take 1 tablet by mouth four times a day as needed for nausea/vomiting. loratadine (CLARITIN) 10 mg tablet Take 1 tablet by mouth once daily. cyclobenzaprine (FLEXERIL) 10 mg tablet Take 1 tablet by mouth three times a day as needed for muscle spasm. May make drowsy mometasone-formoterol (DULERA) 50-5 mcg/actuation HFA aerosol inhaler Inhale 1 Puff as instructed two times a day. Rinse mouth out after use. dulaglutide (TRULICITY) 0.75 mg/0.5 mL pen injector Inject 0.75 mg subcutaneously one time a week. Inject dose once per week. Discard Pen After celecoxib (CELEBREX) 200 mg capsule Take 1 capsule by mouth once daily. Take with food benzonatate (TESSALON PERLE) 100 mg capsule Take 1-2 capsules by mouth three times a day as needed. glimepiride (AMARYL) 4 mg tablet Take 1 tablet by mouth daily with breakfast. Dose change, take onedaily montelukast (SINGULAIR) 10 mg tablet Take 1 tablet by mouth daily at bedtime. albuterol HFA (VENTOLIN HFA) 90 mcg/actuation inhaler Inhale 2 Puffs as instructed every 4 hours asneeded. dulaglutide (TRULICITY) 1.5 mg/0.5 mL pen injector Inject 1.5 mg subcutaneously one time a week. Inject dose once per week. Discard Pen After ferrous sulfate 325 mg (65 mg iron) tablet Take 1 tablet by mouth every Sunday, Sunday, and Sunday. topiramate (TOPAMAX) 100 mg tablet Take 1 tablet by mouth two times a day. lansoprazole (PREVACID) 30 mg capsule Take 1 capsule by mouth daily before breakfast. pramipexole (MIRAPEX) 1.5 mg tablet Take 1 tablet by mouth daily at bedtime. QUEtiapine (SEROQUEL) 25 mg tablet Take 75 mg by mouth daily at bedtime. CPAP Needs replacement CPAP @ 15 cm of water with humidification. Mask (per patient preference) optional chin strap (if indicated) , filters, tubing, humidifier and lifetime supplies. G47.33 MARIA TERESA on CPAP lamoTRIgine (LAMICTAL) 200 mg tablet Take 1 tablet by mouth two times a day. diphenhydrAMINE (BENADRYL) 25 mg capsule Take 1 capsule by mouth every 6 hours as needed for itching/rash. glucose 4 gram chewable tablet Take 4 tablets by mouth as needed for low blood sugar. lidocaine (LIDODERM) 5 % Apply 1 Patch as directed every 24 hours. Remove after 12 hours. Lancets Test blood sugar(s) once times daily. Dx: Type 2 DM - Controlled E11.9 Insulin: No blood sugar diagnostic (BLOOD GLUCOSE TEST) test strip Test blood sugar(s) one time daily. Dx: Type2 DM - Controlled E11.9 Insulin: No silver sulfADIAZINE (SILVADENE) 1 % cream Apply 1 application to affected area once daily. (Patientnot taking: Reported on 11/13/2024) Albuterol Sulfate 1.25 mg/3 mL nebulizer solution Use 1 Ampule via nebulizer every 4 hours as needed for wheezing/shortness of breath. ARIPiprazole (ABILIFY) 5 mg tablet Take 1 tablet by mouth once daily. FREESTYLE [place] monitoring kit USE DIRECTED CPAP Needs lifetime supplies (mask, hoses, headgear, filters, water chamber) G47.33 (already has CPAP) LORazepam (ATIVAN) 1 mg tablet Take 1 tablet by mouth twice daily. As needed. Nebulizer NEBULIZER and Supplies FOR HOME USE. DX: J45.40 citalopram (CELEXA) 40 mg tablet Take 40 mg by mouth once daily. [facility] FAMILY HISTORY Problem Relation Age of Onset other (hepatitis b) Mother Lung Cancer Mother other (hip cancer) Mother Asthma Father Hypertension Father Diabetes Father Hypertension Brother adhd Asthma Brother other (lung cancer) Maternal Uncle Social History Tobacco Use Smoking status: Every Day Current packs/day: 0.25 Average packs/day: 0.3 packs/day for 26.2 years (6.6 ttl pk-yrs) Types: Cigarettes Start date: 08/17/1998 Smokeless tobacco: Never Substance Use Topics Alcohol use: Never Drug use: No Comment: Past history of [place] use ASSESSMENT/PLAN: 1. Acute midline low back pain with left-sided sciatica - ICD9: 724.2, 724.3, ICD10: M54.42 - PREDNISONE 10 MG TABLET - CYCLOBENZAPRINE 10 MG TABLET Patient was educated about proper use of medication and supportive therapies. Patient was educated Flexeril will make her drowsy not to drive or operate heavy machinery on it. Patient was educated about red flag symptoms to watch for. Patient was educated to follow-up with primary care if anything worsens. Patient was agreeable to care plan. 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 Jorge Driscoll with [facility] on 2/28/25. The referral was put through [employer] which is shown as pt's primaryinsurance. Pt reports she has never had [employer] and what she has is [employer] (shows as secondary insurance). Spoke to pt and transferred her to PSS to see if [employer] could be deactivated and [employer] put as primary. [facility] Referral originally was from Preeti Kaba CNP. Sent an email to [employer] who reports: [employer] ? Suze Miller; Sylwia Marcial If this patient now has [employer] then the registration will need to be updated. Thank you, Crystasl [facility]02-15-2025 Telephone encounter Note* Telephone Encounter - Rodri Chauhan MD - 11/01/2024 3:50 PM EST Result note: HgA1C improved from 10.7 down to 9.2. Glucose still high in 260s . Albumin down to 3.7/ Alk Phos improved to 136. Creatinine okay at 0.54 CBC with improved Hemoglobin and Hematocrit into normal range but still microcytic consistent with still being iron deficient but numbers are improved close to normal range. Platelet count low but stable in 90 10 110 range that past few years. She has standing orders to get labs done prior to January appointment with [facility]. See if patient checking sugars and if so, how are they running [facility]02-15-[facility] Miscellaneous Notes* Telephone Encounter - Rodri Chauhan MD - 11/01/2024 3:50 PM EST Result note: HgA1C improved from 10.7 down to 9.2. Glucose still high in 260s . Albumin down to 3.7/ Alk Phos improved to 136. Creatinine okay at 0.54 CBC with improved Hemoglobin and Hematocrit into normal range but still microcytic consistent with still being iron deficient but numbers are improved close to normal range. Platelet count low but stable in 90 10 110 range that past few years. She has standing orders to get labs done prior to January appointment with [facility]. See if patient checking sugars and if so, how are they running * Telephone Encounter - Sylwia Marcial LPN - 10/20/2024 8:51 AM EST Please review lab results completed on 10/17/24. documented in this encounterDayton [facility]02-12-2025 Telephone encounter Note * Telephone Encounter - Vandana Mathias LPN - 10/29/2024 10:48 AM EST Patient scheduled to see SING[facility] BACK TENDER, 01/16/2025, added to discuss need for C-Pap. Vandana Mathias LPN [facility]02-12-2025 Miscellaneous Notes* Telephone Encounter - Vandana Mathias LPN - 10/29/2024 10:48 AM EST Patient scheduled to see SINGER BACK TENDER, 01/16/2025, added to discuss need for C-Pap. Vandana Mathias LPN * Telephone Encounter - Sylwia Macrial LPN - 10/22/2024 11:51 AM EST Fax was received denying patient's request for CPAP machine. Patient aware of same and to call back to schedule an office visit to discuss need for CPAP. documented in this encounterDayton [facility]02-10-2025 Telephone encounter Note * Telephone Encounter - Rodri Chauhan MD - 10/27/2024 7:00 PM EST The following approved medication requests have been transmitted electronically. Requested Prescriptions Signed Prescriptions Disp Refills metFORMIN (GLUCOPHAGE) 500 mg tablet 120 tablet 11 Sig: Take 2 tablets by mouth two times a day with meals. Take one additional 500 mg tab with breakfast or lunch until BS less than 250 Authorizing Provider: RODRI CHAUHAN MD I assume needing filled now since has had to take an extra pill frequentl [facility]02-10-2025 Miscellaneous Notes* Telephone Encounter - Rodri Chauhan MD - 10/27/2024 7:00 PM EST The following approved medication requests have been transmitted electronically. Requested Prescriptions Signed Prescriptions Disp Refills metFORMIN (GLUCOPHAGE) 500 mg tablet 120 tablet 11 Sig: Take 2 tablets by mouth two times a day with meals. Take one additional 500 mg tab with breakfast or lunch until BS less than 250 Authorizing Provider: RODRI CHAUHAN MD I assume needing filled now since has had to take an extra pill frequentl * Telephone Encounter - Ashley Jarrett RN - 10/27/2024 3:43 PM EST The patient has been identified by name and date of : Yes Caregiver verified no other encounters exist for this prescription request: Yes Caregiver confirmed with patient/requestor that no other refills are due, in the near future, with this provider at this time: Yes The last office visit in the department: 10/20/2024 Does the patient have a future office visit with this provider/department: Yes 01/16/2025 Requested Prescriptions Pending Prescriptions Disp Refills metFORMIN (GLUCOPHAGE) 500 mg tablet 120 tablet 11 Sig: Take 2 tablets by mouth two times a day with meals. Take one additional 500 mg tab with breakfast or lunch until BS less than 250 Ashley Jarrett RN October 27, 2024 3:43 PM documented in this encounterDayton [facility]02-10-2025 Telephone encounter Note * Telephone Encounter - Ashley Jarrett RN - 10/27/2024 3:43 PM EST The patient has been identified by name and date of : Yes Caregiver verified no other encounters exist for this prescription request: Yes Caregiver confirmed with patient/requestor that no other refills are due, in the near future, with this provider at this time: Yes The last office visit in the department: 10/20/2024 Does the patient have a future office visit with this provider/department: Yes 01/16/2025 Requested Prescriptions Pending Prescriptions Disp Refills metFORMIN (GLUCOPHAGE) 500 mg tablet 120 tablet 11 Sig: Take 2 tablets by mouth two times a day with meals. Take one additional 500 mg tab with breakfast or lunch until BS less than 250 Ashley Jarrett RN October 27, 2024 3:43 PM [facility]02-05-2025 Telephone encounter Note* Telephone Encounter - Sylwia Marcial LPN - 10/22/2024 11:51 AM EST Fax was received denying patient's request for CPAP machine. Patient aware of same and to call back to schedule an office visit to discuss need for CPAP. [facility]02-05-20[facility] Telephone encounter Note* Telephone Encounter - Stephanie Razo - 10/22/2024 9:42 AM EST Spoke w pt and she is scheduled w Dr Driscoll. Stephanie Razo [facility]02-05-2025 Miscellaneous Notes* Telephone Encounter - Stephanie Razo - 10/22/2024 9:42 AM EST Spoke w pt and she is scheduled w Dr Driscoll. Stephanie Razo * Telephone Encounter - Ashley Graham LPN - 10/21/2024 9:02 AM EST Schedule next available with pt. Ashley Graham LPN * Telephone Encounter - Loretta De La Vega - 10/21/2024 8:13 AM EST Please review and advise CONSULT TO HEMATOLOGY Status: Needs Scheduling Requested appt date: Authorizing: Preeti Kaba APRN.SENIOR TRAINER in [facility] Referral: [id number] (Authorized) Expires: 10/20/2025 Priority: Routine Diagnosis: Thrombocytopenia (HCC) [D69.6] documented in this encounterDayton [facility]02-04-2025 Telephone encounter Note * Telephone Encounter - Ashley Graham LPN - 10/21/2024 9:02 AM EST Schedule next available with pt. Ashley Graham LPN [facility]02-04-2025 Telephone encounter Note* Telephone Encounter - Loretta De La Vega - 10/21/2024 8:13 AM EST Please review and advise CONSULT TO HEMATOLOGY Status: Needs Scheduling Requested appt date: Authorizing: Preeti Kaba APRN.SENIOR TRAINER in [facility] Referral: [id number] (Authorized) Expires: 10/20/2025 Priority: Routine Diagnosis: Thrombocytopenia (HCC) [D69.6] [facility] Work Phone: 1(442) 951-827202-03-2025 Telephone encounter Note* Telephone Encounter - Marielena Nogueira RN - 10/20/2024 3:50 PM EST Patient returned call. Given message below and patient agreeable to see Hematology. Pt did not chose to be transferred to a armored car driver at this time, stated she would call back in. Marielena Nogueira RN [facility]02-03-2025 Miscellaneous Notes* Telephone Encounter - Marielena Nogueira RN - 10/20/2024 3:50 PM EST Patient returned call. Given message below and patient agreeable to see Hematology. Pt did not chose to be transferred to a armored car driver at this time, stated she would call back in. Marielena Nogueira RN * Telephone Encounter - Helen Sullivan RN - 10/20/2024 3:25 PM EST Attempted to contact pt with no answer and msg stating person you are trying to call is not available right now, please try your call again later. LM on pt's mother's phone to have pt return the callto us. * Telephone Encounter - Preeti Kaba APRN.CNP - 10/20/2024 3:15 PM EST Please let the patient know after reviewing her labs in more detail and comparing to previous labs her platelets are still low despite anemia improved. Highly recommend referral to avionics integration engineer for further evaluation. Preeti Kaba APRN.CNP documented in this encounterDayton [facility]02-03-2025 Telephone encounter Note * Telephone Encounter - Helen Sullivan RN - 10/20/2024 3:25 PM EST Attempted to contact pt with no answer and msg stating person you are trying to call is not available right now, please try your call again later. LM on pt's mother's phone to have pt return the callto us. [facility]02-03-2025 Telephone encounter Note* Telephone Encounter - Preeti Kaba APRN.CNP - 10/20/2024 3:15 PM EST Please let the patient know after reviewing her labs in more detail and comparing to previous labs her platelets are still low despite anemia improved. Highly recommend referral to avionics integration engineer for further evaluation. Preeti Kaba APRN.SENIOR TRAINER [facility]02-03-2025 NoteHNO ID: [id number] Author: PREETI KABA APRN.CNP Service: ? Author Type: Nurse Practitioner Type: Progress Notes Filed: 10/20/2024 15:31 Note Text: CC: Patient presents with: Musculoskeletal Problem: Bilateral hand/fingers x 1 month Nose Problem: Blood on kleenex x 1 day HPI Nanci Rodriguez is a 44 year old female who presents today for above. Patient states she blew her nose yesterday and noted mucus was bloody. Since then she has seen a couple dark red flecks of blood when she blows her nose. Denies active nosebleed. She is not on blood thinners. Thrombocytopenia noted on labs for the past three years. She denies any other unusual bleeding or easy bruising. Fingers on both hands numb/tingly (3rd to 5th fingers) x 1 month. Associated with occasional left wrist pain. She denies weakness, loss of cable weaver strength, inability to hold or grasp things in her hands, injury, repetitive movements such as keyboarding. Diabetes: checking her blood sugars three times a day, average around 200. Trulicity was recently on hold due to patient concerns about possible seizure side effects. This was just re-ordered, will be starting back at 0.75 mg weekly. Next eye appointment in February. Sees podiatry routinely. MARIA TERESA: Is compliant with CPAP. No changes in settings. Machine is outdated, needs a new one. Denies snoring, un-refreshed sleep, insomnia, excessive daytime drowsiness. Anemia: taking iron pills. Denies dizziness, lightheadedness, feeling faint, syncope. Review of Systems Constitutional: Negative for chills, diaphoresis, fatigue, fever and unexpected weight change. Respiratory: Negative for cough, shortness of breath and wheezing. Cardiovascular: Negative for chest pain, palpitations and leg swelling. Gastrointestinal: Negative for anal bleeding and blood in stool. Genitourinary: Negative for hematuria. Neurological: Negative for dizziness, tremors, syncope, weakness, light-headedness and headaches. Hematological: Negative for adenopathy. PAST MEDICAL HISTORY Diagnosis Date Abnormal glandular [...] 11/07/2006 Right hip pain 12/15/2013 Unspecified asthma(493.90) PAST SURGICAL HISTORY Procedure Laterality Date BACK SURGERY HX Pain block COLONOSCOPY W/BIOPSY SINGLE/MULTIPLE 10/22/2017 EGD TRANSORAL BIOPSY SINGLE/MULTIPLE 10/22/2017 RPR UMBILICAL HRNA 5 YRS/> REDUCIBLE 10/05/[address] mesh VAGINOSCOPY ALLERGIES Penicillins, Melatonin, Tramadol, and Wellbutrin [Bupropion] MEDICATIONS promethazine (PHENERGAN) 12.5 mg tablet Take 1 tablet by mouth four times a day as needed for nausea/vomiting. loratadine (CLARITIN) 10 mg tablet Take 1 tablet by mouth once daily. cyclobenzaprine (FLEXERIL) 10 mg tablet Take 1 tablet by mouth three times a day as needed for muscle spasm. May make drowsy mometasone-formoterol (DULERA) 50-5 mcg/actuation HFA aerosol inhaler Inhale 1 Puff as instructed two times a day. Rinse mouth out after use. dulaglutide (TRULICITY) 0.75 mg/0.5 mL pen injector Inject 0.75 mg subcutaneously one time a week. Inject dose once per week. Discard Pen After celecoxib (CELEBREX) 200 mg capsule Take 1 capsule by mouth once daily. Take with food benzonatate (TESSALON PERLE) 100 mg capsule Take 1-2 capsules by mouth three times a day as needed. glimepiride (AMARYL) 4 mg tablet Take 1 tablet by mouth daily with breakfast. Dose change, take one daily montelukast (SINGULAIR) 10 mg tablet Take 1 tablet by mouth daily at bedtime. albuterol HFA (VENTOLIN HFA) 90 mcg/actuation inhaler Inhale 2 Puffs as instructed every 4 hours as needed. dulaglutide (TRULICITY) 1.5 mg/0.5 mL pen injector Inject 1.5 mg subcutaneously one time a week. Inject dose once per week. Discard Pen After ferrous sulfate 325 mg (65 mg iron) tablet Take 1 tablet by mouth every Sunday, Sunday, and Sunday. topiramate (TOPAMAX) 100 mg tablet Take 1 tablet by mouth two times a day. lansoprazole (PREVACID) 30 mg capsule Take 1 capsule by mouth daily before breakfast. pramipexole (MIRAPEX) 1.5 mg tablet Take 1 tablet by mouth daily at bedtime. QUEtiapine (SEROQUEL) 25 mg tablet Take 75 mg by mouth daily at bedtime. CPAP Needs replacement CPAP @ 15 cm of water with humidification. Mask (per patient preference) optional chin strap (if indicated) , filters, tubing, humidifier and lifetime supplies. G47.33 MARIA TERESA on CPAP (more content not included)...[facility]02-03-2025 History of Present illness Narrative* Preeti Kaba, MRI CT TECH.SENIOR TRAINER - 10/20/2024 2:40 PM EST CC: Patient presents with: Musculoskeletal Problem: Bilateral hand/fingers x 1 month Nose Problem: Blood on kleenex x 1 day HPI Nanci Rodriguez is a 44 year old female who presents today for above. Patient states she blew her nose yesterday and noted mucus was bloody. Since then she has seen a couple dark red flecks of blood when she blows her nose. Denies active nosebleed. She is not on blood thinners. Thrombocytopenia noted on labs for the past three years. She denies any other unusual bleeding or easy bruising. Fingers on both hands numb/tingly (3rd to 5th fingers) x 1 month. Associated with occasional left wrist pain. She denies weakness, loss of cable weaver strength, inability to hold or grasp things in her hands, injury, repetitive movements such as keyboarding. Diabetes: checking her blood sugars three times a day, average around 200. Trulicity was recently on hold due to patient concerns about possible seizure side effects. This was just re-ordered, willbe starting back at 0.75 mg weekly. Next eye appointment in February. Sees podiatry routinely. MARIA TERESA: Is compliant with CPAP. No changes in settings. Machine is outdated, needs a new one. Denies snoring, un-refreshed sleep, insomnia, excessive daytime drowsiness. Anemia: taking iron pills. Denies dizziness, lightheadedness, feeling faint, syncope. Review of Systems Constitutional: Negative for chills, diaphoresis, fatigue, fever and unexpected weight change. Respiratory: Negative for cough, shortness of breath and wheezing. Cardiovascular: Negative for chest pain, palpitations and leg swelling. Gastrointestinal: Negative for anal bleeding and blood in stool. Genitourinary: Negative for hematuria. Neurological: Negative for dizziness, tremors, syncope, weakness, light- headedness and headaches. Hematological: Negative for adenopathy. PAST MEDICAL HISTORY Diagnosis Date Abnormal glandular [...] 11/07/2006 Right hip pain 12/15/2013 Unspecified asthma(493.90) PAST SURGICAL HISTORY Procedure Laterality Date BACK SURGERY HX Pain block COLONOSCOPY W/BIOPSY SINGLE/MULTIPLE 10/22/2017 EGD TRANSORAL BIOPSY SINGLE/MULTIPLE 10/22/2017 RPR UMBILICAL HRNA 5 YRS/> REDUCIBLE 10/05/[address] mesh VAGINOSCOPY ALLERGIES Penicillins, Melatonin, Tramadol, and Wellbutrin [Bupropion] MEDICATIONS promethazine (PHENERGAN) 12.5 mg tablet Take 1 tablet by mouth four times a day as needed for nausea/vomiting. loratadine (CLARITIN) 10 mg tablet Take 1 tablet by mouth once daily. cyclobenzaprine (FLEXERIL) 10 mg tablet Take 1 tablet by mouth three times a day as needed for muscle spasm. May make drowsy mometasone-formoterol (DULERA) 50-5 mcg/actuation HFA aerosol inhaler Inhale 1 Puff as instructed two times a day. Rinse mouth out after use. dulaglutide (TRULICITY) 0.75 mg/0.5 mL pen injector Inject 0.75 mg subcutaneously one time a week. Inject dose once per week. Discard Pen After celecoxib (CELEBREX) 200 mg capsule Take 1 capsule by mouth once daily. Take with food benzonatate (TESSALON PERLE) 100 mg capsule Take 1-2 capsules by mouth three times a day as needed. glimepiride (AMARYL) 4 mg tablet Take 1 tablet by mouth daily with breakfast. Dose change, take onedaily montelukast (SINGULAIR) 10 mg tablet Take 1 tablet by mouth daily at bedtime. albuterol HFA (VENTOLIN HFA) 90 mcg/actuation inhaler Inhale 2 Puffs as instructed every 4 hours asneeded. dulaglutide (TRULICITY) 1.5 mg/0.5 mL pen injector Inject 1.5 mg subcutaneously one time a week. Inject dose once per week. Discard Pen After ferrous sulfate 325 mg (65 mg iron) tablet Take 1 tablet by mouth every Sunday, Sunday, and Sunday. topiramate (TOPAMAX) 100 mg tablet Take 1 tablet by mouth two times a day. lansoprazole (PREVACID) 30 mg capsule Take 1 capsule by mouth daily before breakfast. pramipexole (MIRAPEX) 1.5 mg tablet Take 1 tablet by mouth daily at bedtime. QUEtiapine (SEROQUEL) 25 mg tablet Take 75 mg by mouth daily at bedtime. CPAP Needs replacement CPAP @ 15 cm of water with humidification. Mask (per patient preference) optional chin strap (if indicated) , filters, tubing, humidifier and lifetime supplies. G47.33 MARIA TERESA on CPAP furosemide (LASIX) 40 mg tablet Take 1 tablet by mouth once daily. lamoTRIgine (LAMICTAL) 200 mg tablet Take 1 tablet by mouth two times a day. diphenhydrAMINE (BENADRYL) 25 mg capsule Take 1 capsule by mouth every 6 hours as needed for itching/rash. SUMAtriptan (IMITREX) 25 mg tablet Take 1 tablet by mouth at onset of headache and may repeat in 2 hrs if needed. glucose 4 gram chewable tablet Take 4 tablets by mouth as needed for low blood sugar. lidocaine (LIDODERM) 5 % Apply 1 Patch as directed every 24 hours. Remove after 12 hours. Lancets Test blood sugar(s) once times daily. Dx: Type 2 DM - Controlled E11.9 Insulin: No blood sugar diagnostic (BLOOD GLUCOSE TEST) test strip Test blood sugar(s) one time daily. Dx: Type2 DM - Controlled E11.9 Insulin: No metFORMIN (GLUCOPHAGE) 500 mg tablet Take 2 tablets by mouth two times a day with meals. Take one additional 500 mg tab with breakfast or lunch until BS less than 250 Albuterol Sulfate 1.25 mg/3 mL nebulizer solution Use 1 Ampule via nebulizer every 4 hours as needed for wheezing/shortness of breath. ARIPiprazole (ABILIFY) 5 mg tablet Take 1 tablet by mouth once daily. FREESTYLE FREEDOM LITE monitoring kit USE DIRECTED CPAP Needs lifetime supplies (mask, hoses, headgear, filters, water chamber) G47.33 (already has CPAP) LORazepam (ATIVAN) 1 mg tablet Take 1 tablet by mouth twice daily. As needed. Nebulizer NEBULIZER and Supplies FOR HOME USE. DX: J45.40 citalopram (CELEXA) 40 mg tablet Take 40 mg by mouth once daily. [facility] silver sulfADIAZINE (SILVADENE) 1 % cream Apply 1 application to affected area once daily. FAMILY HISTORY Problem Relation Age of Onset other (hepatitis b) Mother Lung Cancer Mother other (hip cancer) Mother Asthma Father Hypertension Father Diabetes Father Hypertension Brother adhd Asthma Brother other (lung cancer) Maternal Uncle Social History Tobacco Use Smoking status: Every Day Current packs/day: 0.25 Average packs/day: 0.3 packs/day for 26.2 years (6.5 ttl pk-yrs) Types: Cigarettes Start date: 08/17/1998 Smokeless tobacco: Never Substance Use Topics Alcohol use: Never Drug use: No Comment: Past history of Marjiuana use BP 132/74 Pulse 96 Resp 14 Wt (!) 171 kg (376 lb 15.8 oz) LMP 04/24/2024 (Approximate) SpO2 98% BMI 65.73 kg/m Physical Exam Vitals reviewed. Constitutional: Appearance: Normal appearance. HENT: Nose: Right Nostril: No epistaxis. Left Nostril: No epistaxis. Neck: Thyroid: No thyroid mass, thyromegaly or thyroid tenderness. Cardiovascular: Rate and Rhythm: Normal rate and regular rhythm. Heart sounds: Normal heart sounds. No murmur heard. Pulmonary: Effort: Pulmonary effort is normal. Breath sounds: Normal breath sounds. No wheezing, rhonchi or rales. Lymphadenopathy: Cervical: No cervical adenopathy. Upper Body: Right upper body: No supraclavicular adenopathy. Left upper body: No supraclavicular adenopathy. Skin: General: Skin is warm and dry. Neurological: Mental Status: She is alert. Sensory: Sensation is intact. Motor: Motor function is intact. Deep Tendon Reflexes: Reflexes are normal and symmetric. Health maintenance reviewed with patient: Mammogram Screening Never done LDL Cholesterol due on 03/06/2024 Dilated Retinal Exam due on 11/01/2024 Diabetic Foot Exam due on 12/30/2024 Influenza Vaccine(1) due on 03/16/2025 Hepatitis B Vaccine(1 of 3 - 19+ 3-dose series) due on 07/01/2025 Pneumococcal Vaccine(2 of 2 - PCV) due on 07/01/2025 HbA1C due on 01/14/2025 Urine Albumin:Creatinine Ratio due on 04/22/2025 Depression Screening due on 04/24/2025 Anxiety Screening due on 04/24/2025 Annual PCP Team Chronic Disease Visit due on 10/20/2025 Cervical Cancer Screening due on 01/20/2026 DTaP,Tdap,Td Vaccine(3 - Td or Tdap) due on 07/16/2027 Spirometry Completed Hepatitis C Screening Completed HIV Screening Completed HPV Vaccine Aged Out Covid-19 Vaccine Discontinued DATA REVIEWED: Most recent labs ASSESSMENT/PLAN: 1. Type 2 diabetes mellitus without complication, without long-term current use of insulin (HCC) - ICD9: 250.00, ICD10: E11.9 (primary diagnosis) - Improving control - Continue current medications 2. Thrombocytopenia (HCC) - ICD9: 287.5, ICD10: D69.6 Chronic since 2021. Possibly secondary to anemia however anemia has resolved on recent labs, platelets remain low. Will refer to hematology (see phone encounter 10/20/24) 3. MARIA TERESA on CPAP - ICD9: 327.23, ICD10: G47.33 Compliant with and benefiting from CPAP - CPAP DEVICE, WITH HUMIDIFIER 4. Numbness and tingling in both hands - ICD9: 782.0, ICD10: R20.0, R20.2 Carpal tunnel vs diabetic neuropathy. Symptom management discussed. Follow-up as needed if symptomspersist or worsen 5. Anemia, unspecified type - ICD9: 285.9, ICD10: D64.9 resolved 6. Bilateral leg edema - ICD9: 782.3, ICD10: R60.0 Stable - FUROSEMIDE 40 MG TABLET 7. Migraine without aura and without status migrainosus, not intractable - ICD9: 346.10, ICD10: G43.009 Stable - SUMATRIPTAN 25 MG TABLET 8. Fatty liver - ICD9: 571.8, ICD10: K76.0 LFT's normal on recent labs, previously mildly elevated. Will continue to monitor Prescription instructions reviewed with patient as applicable. Potential red flag symptoms discussed with the patient. Reviewed appropriate action plan to take if red flag symptoms occur. Patient agreeable to treatment plan. Preeti Kaba APRN.SENIOR TRAINER documented in [facility] encounterDay[facility] Telephone encounter Note * Telephone Encounter - Sylwia Marcial LPN - 10/20/2024 8:51 AM EST Please review lab results completed on 10/17/24. [facility]01[facility]25 NoteHNO ID: [id number] Author: JOHNSON RM APRN.SENIOR SHAREPOINT ARCHITECT Service: ? Author Type: Nurse Specialist Type: Progress Notes Filed: 10/17/2024 16:53 Note Text: SUBJECTIVE: Mammogram Screening Never done LDL Cholesterol due on 03/06/2024 HbA1C due on 07/23/2024 Dilated Retinal Exam due on 11/01/2024 JINA Rodriguez is a 42 year old female. PMH [...] Ldl Less Than 100 Restless Leg Syndrome Obesity, Class III, BMI >= 40 Cpap (Continuous Positive Airway Pressure) Dependence Presents for a routine visit today. Reports since she was last seen that she had tic-like behaviors of the upper extremities. Involutary, did not lose conciousness. Observed by fmily member. This is attributed to tramadol so it was discontinued. Concern of possible adverse effect of dulaglutide so this was also held.She reports no recurrence since discontinuing medications. Today notes that she has had increased coughing, asthma with worse control. Not currently using maintenance inhaler as she is concerned about getting thrush. DIABETES MELLITUS: Has lost 22lbs since May on dulaglutide and other medications. The dulaglutide has been held recently, but did take about 2 of 3 months.excessive thirst or increased frequency of urination, chest pain or dyspnea , numbness, tingling or pain in extremities, new or unusual visual symptoms, low sugar/hypoglycemic reactions, weight loss/gain, lightheadedness/dizziness, and bowel changes/loose stools. Patient's last HgA1C was Hemoglobin A1C (%) Date Value 04/22/2024 10.7 09/21/2023 7.3 02/02/2021 11.2 01/03/2021 12.6 ) Would like alternate for chronic back pain for which she was taking tramadol. Review of Systems Constitutional: Negative. Respiratory: Negative. Cardiovascular: Negative. Endocrine: Negative. Musculoskeletal: Positive for back pain. Objective BP 138/89 Pulse 97 Resp 16 Wt (!) 169 kg (372 lb 9.2 oz) LMP 04/24/2024 (Approximate) BMI 64.96 kg/m? Physical Exam Vitals and nursing note reviewed. Constitutional: Appearance: Normal appearance. HENT: Head: Normocephalic and atraumatic. Eyes: Conjunctiva/sclera: Conjunctivae normal. Cardiovascular: Rate and Rhythm: Normal rate and regular rhythm. Heart sounds: Normal heart sounds. Pulmonary: Effort: Pulmonary effort is normal. Breath sounds: Normal breath sounds. Musculoskeletal: Lumbar back: Tenderness present. Decreased range of motion. Skin: General: Skin is warm and dry. Neurological: General: No focal deficit present. Mental Status: She is alert and oriented to person, place, and time. ALLERGIES Allergen Reactions Penicillins Itching, Hives Melatonin Rash, Hives Wellbutrin [Bupropi* Intolerance Dry mouth--severe, intolerable Medications glimepiride (AMARYL) 4 mg tablet Take 1 tablet by mouth daily with breakfast. Dose change, take one daily montelukast (SINGULAIR) 10 mg tablet Take 1 tablet by mouth daily at bedtime. cyclobenzaprine (FLEXERIL) 10 mg tablet Take 1 tablet by mouth three times a day as needed for muscle spasm. May make drowsy albuterol HFA (VENTOLIN HFA) 90 mcg/actuation inhaler Inhale 2 Puffs as instructed every 4 hours as needed. ferrous sulfate 325 mg (65 mg iron) tablet Take 1 tablet by mouth every Sunday, Sunday, and Sunday. topiramate (TOPAMAX) 100 mg tablet Take 1 tablet by mouth two times a day. lansoprazole (PREVACID) 30 mg capsule Take 1 capsule by mouth daily before breakfast. pramipexole (MIRAPEX) 1.5 mg tablet Take 1 tablet by mouth daily at bedtime. QUEtiapine (SEROQUEL) 25 mg tablet Take 75 mg by mouth daily at bedtime. CPAP Needs replacement CPAP @ 15 cm of water with humidification. Mask (per patient preference) optional chin strap (if indicated) , filters, tubing, humidifier and lifetime supplies. G47.33 MARIA TERESA on CPAP furosemide (LASIX) 40 mg tablet Take 1 tablet by mouth once daily. lamoTRIgine (LAMICTAL) 200 mg tablet Take 1 tablet by mouth two times a day. diphenhydrAMINE (BENADRYL) 25 mg capsule Take 1 capsule by mouth every 6 hours as needed for itching/rash. SUMAtriptan (IMITREX) 25 mg tablet Take 1 tablet by mouth at onset of headache and may repeat in 2 hrs if needed. glucose 4 gram chewable tablet Take 4 tablets by mouth as needed for low blood sugar. mometasone-formoterol (DULERA) 50-5 mcg/actuation HFA aerosol inhaler Inhale 1 Puff as instructed two times a day. promethazine (PHENERGAN) 12 (more content not included)...[facility]01-31-2025 History of Present illness Narrative* Johnson Rm, MRI CT TECH.SENIOR SHAREPOINT ARCHITECT - 10/17/2024 3:10 PM EST SUBJECTIVE: Mammogram Screening Never done LDL Cholesterol due on 03/06/2024 HbA1C due on 07/23/2024 Dilated Retinal Exam due on 11/01/2024 HPI Nanci Rodriguez is a 42 year old female. PMH [...] Ldl Less Than 100 Restless Leg Syndrome Obesity, Class III, BMI >= 40 Cpap (Continuous Positive Airway Pressure) Dependence Presents for a routine visit today. Reports since she was last seen that she had tic-like behaviorsof the upper extremities. Involutary, did not lose conciousness. Observed by fmily member. This is attributed to tramadol so it was discontinued. Concern of possible adverse effect of dulaglutide so this was also held.She reports no recurrence since discontinuing medications. Today notes that she has had increased coughing, asthma with worse control. Not currently using maintenance inhaler as she is concerned about getting thrush. DIABETES MELLITUS: Has lost 22lbs since May on dulaglutide and other medications. The dulaglutide has been held recently, but did take about 2 of 3 months.excessive thirst or increased frequency of urination, chest pain or dyspnea , numbness, tingling or pain in extremities, new or unusual visual symptoms, low sugar/hypoglycemic reactions, weight loss/gain, lightheadedness/dizziness, and bowel changes/loose stools. Patient's last HgA1C was Hemoglobin A1C (%) Date Value 04/22/2024 10.7 09/21/2023 7.3 02/02/2021 11.2 01/03/2021 12.6 ) Would like alternate for chronic back pain for which she was taking tramadol. Review of Systems Constitutional: Negative. Respiratory: Negative. Cardiovascular: Negative. Endocrine: Negative. Musculoskeletal: Positive for back pain. Objective BP 138/89 Pulse 97 Resp 16 Wt (!) 169 kg (372 lb 9.2 oz) LMP 04/24/2024 (Approximate) BMI64.96 kg/m Physical Exam Vitals and nursing note reviewed. Constitutional: Appearance: Normal appearance. HENT: Head: Normocephalic and atraumatic. Eyes: Conjunctiva/sclera: Conjunctivae normal. Cardiovascular: Rate and Rhythm: Normal rate and regular rhythm. Heart sounds: Normal heart sounds. Pulmonary: Effort: Pulmonary effort is normal. Breath sounds: Normal breath sounds. Musculoskeletal: Lumbar back: Tenderness present. Decreased range of motion. Skin: General: Skin is warm and dry. Neurological: General: No focal deficit present. Mental Status: She is alert and oriented to person, place, and time. ALLERGIES Allergen Reactions Penicillins Itching, Hives Melatonin Rash, Hives Wellbutrin [Bupropi* Intolerance Dry mouth--severe, intolerable Medications glimepiride (AMARYL) 4 mg tablet Take 1 tablet by mouth daily with breakfast. Dose change, take onedaily montelukast (SINGULAIR) 10 mg tablet Take 1 tablet by mouth daily at bedtime. cyclobenzaprine (FLEXERIL) 10 mg tablet Take 1 tablet by mouth three times a day as needed for muscle spasm. May make drowsy albuterol HFA (VENTOLIN HFA) 90 mcg/actuation inhaler Inhale 2 Puffs as instructed every 4 hours asneeded. ferrous sulfate 325 mg (65 mg iron) tablet Take 1 tablet by mouth every Sunday, Sunday, and Sunday. topiramate (TOPAMAX) 100 mg tablet Take 1 tablet by mouth two times a day. lansoprazole (PREVACID) 30 mg capsule Take 1 capsule by mouth daily before breakfast. pramipexole (MIRAPEX) 1.5 mg tablet Take 1 tablet by mouth daily at bedtime. QUEtiapine (SEROQUEL) 25 mg tablet Take 75 mg by mouth daily at bedtime. CPAP Needs replacement CPAP @ 15 cm of water with humidification. Mask (per patient preference) optional chin strap (if indicated) , filters, tubing, humidifier and lifetime supplies. G47.33 MARIA TERESA on CPAP furosemide (LASIX) 40 mg tablet Take 1 tablet by mouth once daily. lamoTRIgine (LAMICTAL) 200 mg tablet Take 1 tablet by mouth two times a day. diphenhydrAMINE (BENADRYL) 25 mg capsule Take 1 capsule by mouth every 6 hours as needed for itching/rash. SUMAtriptan (IMITREX) 25 mg tablet Take 1 tablet by mouth at onset of headache and may repeat in 2 hrs if needed. glucose 4 gram chewable tablet Take 4 tablets by mouth as needed for low blood sugar. mometasone-formoterol (DULERA) 50-5 mcg/actuation HFA aerosol inhaler Inhale 1 Puff as instructed two times a day. promethazine (PHENERGAN) 12.5 mg tablet Take 1 tablet by mouth four times a day as needed for nausea/vomiting. lidocaine (LIDODERM) 5 % Apply 1 Patch as directed every 24 hours. Remove after 12 hours. Lancets Test blood sugar(s) once times daily. Dx: Type 2 DM - Controlled E11.9 Insulin: No blood sugar diagnostic (BLOOD GLUCOSE TEST) test strip Test blood sugar(s) one time daily. Dx: Type2 DM - Controlled E11.9 Insulin: No metFORMIN (GLUCOPHAGE) 500 mg tablet Take 2 tablets by mouth two times a day with meals. Take one additional 500 mg tab with breakfast or lunch until BS less than 250 silver sulfADIAZINE (SILVADENE) 1 % cream Apply 1 application to affected area once daily. Albuterol Sulfate 1.25 mg/3 mL nebulizer solution Use 1 Ampule via nebulizer every 4 hours as needed for wheezing/shortness of breath. ARIPiprazole (ABILIFY) 5 mg tablet Take 1 tablet by mouth once daily. loratadine (CLARITIN) 10 mg tablet Take 1 tablet by mouth once daily. FREESTYLE FREEDOM LITE monitoring kit USE DIRECTED CPAP Needs lifetime supplies (mask, hoses, headgear, filters, water chamber) G47.33 (already has CPAP) LORazepam (ATIVAN) 1 mg tablet Take 1 tablet by mouth twice daily. As needed. Nebulizer NEBULIZER and Supplies FOR HOME USE. DX: J45.40 citalopram (CELEXA) 40 mg tablet Take 40 mg by mouth once daily. [facility] dulaglutide (TRULICITY) 1.5 mg/0.5 mL pen injector Inject 1.5 mg subcutaneously one time a week. Inject dose once per week. Discard Pen After (Patient not taking: Reported on 10/17/2024) Chlorhexidine Gluconate (PERIDEX) 0.12 % solution Use 15 mL as instructed two times a day. Rinse around mouth for 30 seconds then expectorate (Patient not taking: Reported on 07/01/2024) bacitracin 500 unit/gram ointment APPLY TO THE AFFECTED AREA(S) EVERY DAY (Patient not taking: Reported on 10/17/2024) PAST MEDICAL HISTORY Diagnosis Date Abnormal glandular [...] History Tobacco Use Smoking status: Every Day Current packs/day: 0.25 Average packs/day: 0.3 packs/day for 26.2 years (6.5 ttl pk-yrs) Types: Cigarettes Start date: 08/17/1998 Smokeless tobacco: Never Substance Use Topics Alcohol use: Never Drug use: No Comment: Past history of Marjiuana use ASSESSMENT/PLAN: 1. 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 Seizures are a known adverse effect of tramadol. If any recurrence or seizure like activity in the future would recommend EEG and neurology appointment. 2. Lumbago - ICD9: 724.2, ICD10: M54.50 Discontinued tramadol due to tic-like behavior, known adverse effects of possible seizure with tramadol. Trial celebrex - CYCLOBENZAPRINE 10 MG TABLET - CELECOXIB 200 MG CAPSULE 3. Uncontrolled type 2 diabetes mellitus with hyperglycemia (HCC) - ICD9: 250.02, ICD10: E11.65 Previously uncontrolled, recheck labs today. Resume dulaglutide at starting dose, stop taking if any adverse effects. Continue with DM diet and other medications unchanged. - CONSULT TO PHARMACY - DULAGLUTIDE 0.75 MG/0.5 ML SUBCUTANEOUS PEN INJECTOR 4. Intermittent asthma without complication, unspecified asthma severity - ICD9: 493.90, ICD10: J45.20 Suboptimal control, recommend resuming maintenance inhaler. - Avoidance of triggers recommended - DULERA 50 MCG-5 MCG/ACTUATION HFA AEROSOL INHALER - BENZONATATE 100 MG CAPSULE 5. Obesity, Class III, BMI >= 40 - ICD9: 278.01, ICD10: E66.01 Endorse portion control and exercise as able. Resume dulaglutide at starting dose, stop taking if any adverse effects. 6. 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 October 17, 2024 10:00am Lymphedema, not elsewhere classified acute November 12 025 12:30pm 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 of right lower leg with necr chronic October 12:30pm Lymphedema, not elsewhere classified acute December 10, 2024 10:15am 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 December 10 10:15am [facility] Work Phone: 1(843) 801-294701-28-2025 Telephone encounter Note* Telephone Encounter - Vianney Elise RN - 10/14/2024 11:34 AM EST The patient has been identified by name and date of : Yes Caregiver verified no other encounters exist for this prescription request: Yes Caregiver confirmed with patient/requestor that no other refills are due, in the near future, with this provider at this time: Yes The last office visit in the department: 07/01/2024 Does the patient have a future office visit with this provider/department: 10/17/2024 Requested Prescriptions Pending Prescriptions Disp Refills glimepiride (AMARYL) 4 mg tablet 30 tablet 11 Sig: Take 1 tablet by mouth daily with breakfast. Dose change, take one daily montelukast (SINGULAIR) 10 mg tablet 30 tablet 11 Sig: Take 1 tablet by mouth daily at bedtime. Vianney Elise RN October 14, 2024 11:35 AM [facility]01-28-[facility] Miscellaneous Notes* Telephone Encounter - Vianney Elise RN - 10/14/2024 11:34 AM EST The patient has been identified by name and date of : Yes Caregiver verified no other encounters exist for this prescription request: Yes Caregiver confirmed with patient/requestor that no other refills are due, in the near future, with this provider at this time: Yes The last office visit in the department: 07/01/2024 Does the patient have a future office visit with this provider/department: 10/17/2024 Requested Prescriptions Pending Prescriptions Disp Refills glimepiride (AMARYL) 4 mg tablet 30 tablet 11 Sig: Take 1 tablet by mouth daily with breakfast. Dose change, take one daily montelukast (SINGULAIR) 10 mg tablet 30 tablet 11 Sig: Take 1 tablet by mouth daily at bedtime. Vianney Elise RN October 14, 2024 11:35 AM documented in this encounterDayton [facility] Hospital01-09-2025 Telephone encounter Note * Telephone Encounter - Helen Sullivan RN - 09/25/2024 2:11 PM EST [facility] for pt on her Tramadol and Cyclobenzaprine. Per refill encounter of 09/16/24, Dr. Chauhan has put Tramadol on Hold due to pt havingseizure activity. Dr. Chauhan will discuss with pt at her 10/10/24 appt. New prescription for Cyclobenzaprine was sent to [facility] on 09/08 with refills. Parker will contact them for the medication. [facility]01-09-2025 Miscellaneous Notes* Telephone Encounter - Helen Sullivan RN - 09/25/2024 2:11 PM EST Parker from [facility] pharmacy calling to request prescription refills for pt on her Tramadol and Cyclobenzaprine. Per refill encounter of 09/16/24, Dr. Chauhan has put Tramadol on Hold due to pt havingseizure activity. Dr. Chauhan will discuss with pt at her 10/10/24 appt. New prescription for Cyclobenzaprine was sent to [facility] on 09/08 with refills. Parker will contact them for the medication. documented in this encounterDayton [facility]01[facility] Telephone encounter Note * Telephone Encounter - Vandana Mathias LPN - 09/22/2024 2:37 PM EST Patient notified of below recommendation, she will wait until her appt 10/10/2024 to discuss further. Vandana Mathias LPN [facility]01-06-2025 Miscellaneous Notes* Telephone Encounter - Vandana Mathias LPN - 09/22/2024 2:37 PM EST Patient notified of below recommendation, she will wait until her appt 10/10/2024 to discuss further. Vandana Mathias LPN * Telephone Encounter - Rodri Chauhan MD - 09/19/2024 1:08 AM EST Tramadol needs to put n hold till has follow up for a couple reasons. 1) recent call about having seizures which she attributed to Trulicity and was advised to go to ER--tramadol can contribute to seizure activity so need to follow up after ER evaluation to determine whether safe to stay on tramadol as needed for pain. 2( Patient just got refill 09/08 and RX since June had lasted about a month. See if patient needs September appointment moved up * Telephone Encounter - Deja Medina - 09/16/2024 10:14 AM EST Patient has been identified by name and date of : Yes, [facility] phones for refill(s): Tramadol 50 mg (not in refill list) Date of last office visit in primary care: 07/01/2024 Date of next office visit in primary care: 10/10/2024 Please advise. Thank you. Deja Medina. documented in this encounterDayton [facility]01-[facility]25 Telephone encounter Note * Telephone Encounter - Rodri Chauhan MD - 09/19/2024 1:08 AM EST Tramadol needs to put n hold till has follow up for a couple reasons. 1) recent call about having seizures which she attributed to Trulicity and was advised to go to ER--tramadol can contribute to seizure activity so need to follow up after ER evaluation to determine whether safe to stay on tramadol as needed for pain. 2( Patient just got refill 09/08 and RX since June had lasted about a month. See if patient needs September appointment moved up [facility]01-02-2025 Miscellaneous Notes* Telephone Encounter - Vianney Elise RN - 09/18/2024 2:26 PM EST Patient calls to report that she thinks she is having severe seizure activity related to Trulicity.Nurse triage completed. Recommends ER now or triage. Patient reports that she is already going to ER but wanted to let provider know that she is no longer taking Trulicity as of today. Nothing further needed closing triage encounter. Reason for Disposition [1] Symptom of illness (e.g., headache, abdominal pain, earache, vomiting) AND [2] more than mild [1] Loss of speech or garbled speech AND [2] sudden onset AND [3] brief (now gone) Answer Assessment - Initial Assessment Questions 1. NAME of MEDICINE: Trulicity 2. QUESTION: Side effects. 3. PRESCRIBER: Zunilda Jaramillo 4. SYMPTOMS: Severe Seizure activity 5. :No Answer Assessment - Initial Assessment Questions 1. SYMPTOM:Patient reports she believes that she is having severe seizures related to her Trulicity. 2. ONSET: Patient reports that she has had occasional tremors since starting Trulicity but nothing like she is experiencing today. Patient reports symptoms started around noon. 3. LAST NORMAL: Patient not a good historian reports symptoms started today then reports on-going since started Trulicity but this is the worst it has been. Patient reports that she skipped her last weeks injection and just took todays around 930 am. 4. PATTERN: Constant 5. CARDIAC SYMPTOMS: No chest pain, difficulty breathing, palpitations. 6. NEUROLOGIC SYMPTOMS: Severe dizziness, blurred vision, changes in speech, unable to talk or walk. 7. OTHER SYMPTOMS: 8. : No Protocols used: Medication Question [id number], Neurologic [id number] documented in this encounterDayton Children'S Hospital01-02-2025 Telephone encounter Note * Telephone Encounter - Vianney Elise RN - 09/18/2024 2:26 PM EST Patient calls to report that she thinks she is having severe seizure activity related to Trulicity.Nurse triage completed. Recommends ER now or triage. Patient reports that she is already going to ER but wanted to let provider know that she is no longer taking Trulicity as of today. Nothing further needed closing triage encounter. Reason for Disposition [1] Symptom of illness (e.g., headache, abdominal pain, earache, vomiting) AND [2] more than mild [1] Loss of speech or garbled speech AND [2] sudden onset AND [3] brief (now gone) Answer Assessment - Initial Assessment Questions 1. NAME of MEDICINE: Trulicity 2. QUESTION: Side effects. 3. PRESCRIBER: Zunilda Jaramillo 4. SYMPTOMS: Severe Seizure activity 5. :No Answer Assessment - Initial Assessment Questions 1. SYMPTOM:Patient reports she believes that she is having severe seizures related to her Trulicity. 2. ONSET: Patient reports that she has had occasional tremors since starting Trulicity but nothing like she is experiencing today. Patient reports symptoms started around noon. 3. LAST NORMAL: Patient not a good historian reports symptoms started today then reports on-going since started Trulicity but this is the worst it has been. Patient reports that she skipped her last weeks injection and just took todays around 930 am. 4. PATTERN: Constant 5. CARDIAC SYMPTOMS: No chest pain, difficulty breathing, palpitations. 6. NEUROLOGIC SYMPTOMS: Severe dizziness, blurred vision, changes in speech, unable to talk or walk. 7. OTHER SYMPTOMS: 8. 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 August 10:30am 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 of right lower leg with necr chronic September 18, 2024 3:08pm Lymphedema, not elsewhere classified acute October 17 10:00am Morbidly obese acute October 172024 10:00am 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 October 17, 2024 10:00am Lymphedema, not elsewhere classified acute November 12 025 12:30pm 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 of right lower leg with necr chronic October 12:30pm Lymphedema, not elsewhere classified acute December 10, 2024 10:15am 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 Thank you. Deja Medina. [facility]12-26-2024 Telephone encounter Note* Telephone Encounter - Kailee Salinas LPN - 09/11/2024 8:28 AM EST Spoke with pt and she got her medications picked up. Kailee Salinas LPN [facility]12-26-2024 Miscellaneous Notes* Telephone Encounter - Kailee Salinas LPN - 09/11/2024 8:28 AM EST Spoke with pt and she got her medications picked up. Kailee Salinas LPN * Telephone Encounter - Rodri Chauhan MD - 09/08/2024 8:17 PM EST The following approved medication requests have been transmitted electronically. Requested Prescriptions Signed Prescriptions Disp Refills cyclobenzaprine (FLEXERIL) 10 mg tablet 30 tablet 2 Sig: Take 1 tablet by mouth three times a day as needed for muscle spasm. May make drowsy Authorizing Provider: RODRI CHAUHAN traMADol (ULTRAM) 50 mg tablet 28 tablet 0 Sig: Take 1 tablet by mouth every 6 hours as needed for pain for up to 7 days. Authorizing Provider: RODRI CHAUHAN MD * Telephone Encounter - La Mas LPN - 09/08/2024 6:01 PM EST Encounter printed and given to Provider to address. La Mas LPN * Telephone Encounter - Deja Medina - 09/08/2024 4:49 PM EST Patient calling for status of both refills. Please call with the status this afternoon, as patient is out of medication. [phone] * Telephone Encounter - Deja Medina - 09/08/2024 10:00 AM EST Patient also requesting a refill of her Tramadol (not in current refill list). She is asking for these to please be expedited to [facility] today.. Patient has been identified by name and date of : Yes, Patient phones for refill(s): Requested Prescriptions Pending Prescriptions Disp Refills cyclobenzaprine (FLEXERIL) 10 mg tablet 30 tablet 2 Sig: Take 1 tablet by mouth three times a day as needed for muscle spasm. May make drowsy Date of last office visit in primary care: 07/01/2024 Date of next office visit in primary care: 10/10/2024 Please advise. Thank you. Deja Medina. documented in this encounterDayton [facility]12-23-2024 Telephone encounter Note * Telephone Encounter - Rodri Chauhan MD - 09/08/2024 8:17 PM EST The following approved medication requests have been transmitted electronically. Requested Prescriptions Signed Prescriptions Disp Refills cyclobenzaprine (FLEXERIL) 10 mg tablet 30 tablet 2 Sig: Take 1 tablet by mouth three times a day as needed for muscle spasm. May make drowsy Authorizing Provider: RODRI CHAUHAN traMADol (ULTRAM) 50 mg tablet 28 tablet 0 Sig: Take 1 tablet by mouth every 6 hours as needed for pain for up to 7 days. Authorizing Provider: RODRI CHAUHAN MD [facility]12-23-2024 Telephone encounter Note* Telephone Encounter - La Mas LPN - 09/08/2024 6:01 PM EST Encounter printed and given to Provider to address. La Mas LPN [facility]12-23-2024 Telephone encounter Note* Telephone Encounter - Deja Medina - 09/08/2024 4:49 PM EST Patient calling for status of both refills. Please call with the status this afternoon, as patient is out of medication. [phone] [facility]12-23-2024 Telephone encounter Note* Telephone Encounter - Deja Medina - 09/08/2024 10:00 AM EST Patient also requesting a refill of her Tramadol (not in current refill list). She is asking for these to please be expedited to [facility] today.. Patient has been identified by name and date of : Yes, Patient phones for refill(s): Requested Prescriptions Pending Prescriptions Disp Refills cyclobenzaprine (FLEXERIL) 10 mg tablet 30 tablet 2 Sig: Take 1 tablet by mouth three times a day as needed for muscle spasm. May make drowsy Date of last office visit in primary care: 07/01/2024 Date of next office visit in primary care: 10/10/2024 Please advise. Thank you. Deja Medina. [facility]12-05-2024 Telephone encounter Note* Telephone Encounter - Kailee Salinas LPN - 08/21/2024 9:20 AM EST Spoke with pt and information listed below given, that prescriptions were sent to the pharmacy. Pt verbalizes understanding. Kailee Salinas LPN [facility]12-05-2024 Miscellaneous Notes* Telephone Encounter - Kailee Salinas LPN - 08/21/2024 9:20 AM EST Spoke with pt and information listed below given, that prescriptions were sent to the pharmacy. Pt verbalizes understanding. Kailee Salinas LPN * Telephone Encounter - Rodir Chauhan MD - 08/20/2024 7:25 PM EST The following approved medication requests have been transmitted electronically. Requested Prescriptions Signed Prescriptions Disp Refills albuterol HFA (VENTOLIN HFA) 90 mcg/actuation inhaler 18 g 11 Sig: Inhale 2 Puffs as instructed every 4 hours as needed. Authorizing Provider: RODRI CHAUHAN traMADol (ULTRAM) 50 mg tablet 28 tablet 0 Sig: Take 1 tablet by mouth every 6 hours as needed for pain for up to 7 days. Authorizing Provider: RODRI CHAUHAN cyclobenzaprine (FLEXERIL) 10 mg tablet 30 tablet 2 Sig: Take 1 tablet by mouth three times a day as needed for muscle spasm. May make drowsy Authorizing Provider: ORDRI CHAUHAN MD * Telephone Encounter - Nuzhat Montes RN - 08/19/2024 3:38 PM EST The patient has been identified by name and date of : Yes Caregiver verified no other encounters exist for this prescription request: Yes Caregiver confirmed with patient/requestor that no other refills are due, in the near future, with this provider at this time: Yes The last office visit in the department: 07/01/2024 Does the patient have a future office visit with this provider/department: Yes 10/10/2024 Requested Prescriptions Pending Prescriptions Disp Refills albuterol HFA (VENTOLIN HFA) 90 mcg/actuation inhaler 18 g 11 Sig: Inhale 2 Puffs as instructed every 4 hours as needed. traMADol (ULTRAM) 50 mg tablet 28 tablet 0 Sig: Take 1 tablet by mouth every 6 hours as needed for pain for up to 7 days. cyclobenzaprine (FLEXERIL) 10 mg tablet 30 tablet 2 Sig: Take 1 tablet by mouth three times a day as needed for muscle spasm. May make drowsy Nuzhat Montes RN August 19, 2024 3:38 PM * Telephone Encounter - Nilda Albert - 08/19/2024 3:35 PM EST [facility]'s pharmacy states they have used all 11 refills and are requesting a new script. * Telephone Encounter - Truman RodriguesNilda - 08/19/2024 3:33 PM EST Prescription Refill Information The patient has been identified by name and date of : Yes Caregiver verified no other encounters exist for this prescription request: Yes Caregiver confirmed with patient/requestor that no other refills are due, in the near future, with this provider at this time: Yes The last office visit in the department: 07-01-24 Does the patient have a future office visit with this provider/department: Yes Requested Prescriptions Pending Prescriptions Disp Refills albuterol HFA (VENTOLIN HFA) 90 mcg/actuation inhaler 18 g 11 Sig: Inhale 2 Puffs as instructed every 4 hours as needed. Nilda Dudley Truman [facility] August 19, 2024 3:35 PM documented in this encounterDayton [facility]12-04-2024 Telephone encounter Note * Telephone Encounter - Rodri Chauhan MD - 08/20/2024 7:25 PM EST The following approved medication requests have been transmitted electronically. Requested Prescriptions Signed Prescriptions Disp Refills albuterol HFA (VENTOLIN HFA) 90 mcg/actuation inhaler 18 g 11 Sig: Inhale 2 Puffs as instructed every 4 hours as needed. Authorizing Provider: RODRI CHAUHAN traMADol (ULTRAM) 50 mg tablet 28 tablet 0 Sig: Take 1 tablet by mouth every 6 hours as needed for pain for up to 7 days. Authorizing Provider: RODRI CHAUHAN cyclobenzaprine (FLEXERIL) 10 mg tablet 30 tablet 2 Sig: Take 1 tablet by mouth three times a day as needed for muscle spasm. May make drowsy Authorizing Provider: RODRI CHAUHAN MD [facility]12-03-2024 Telephone encounter Note* Telephone Encounter - Nuzhat Montes RN - 08/19/2024 3:38 PM EST The patient has been identified by name and date of : Yes Caregiver verified no other encounters exist for this prescription request: Yes Caregiver confirmed with patient/requestor that no other refills are due, in the near future, with this provider at this time: Yes The last office visit in the department: 07/01/2024 Does the patient have a future office visit with this provider/department: Yes 10/10/2024 Requested Prescriptions Pending Prescriptions Disp Refills albuterol HFA (VENTOLIN HFA) 90 mcg/actuation inhaler 18 g 11 Sig: Inhale 2 Puffs as instructed every 4 hours as needed. traMADol (ULTRAM) 50 mg tablet 28 tablet 0 Sig: Take 1 tablet by mouth every 6 hours as needed for pain for up to 7 days. cyclobenzaprine (FLEXERIL) 10 mg tablet 30 tablet 2 Sig: Take 1 tablet by mouth three times a day as needed for muscle spasm. May make drowsy Nuzhat Montes RN August 19, 2024 3:38 PM [facility]12-03-2024 Telephone encounter Note* Telephone Encounter - Nilda Albert - 08/19/2024 3:35 PM EST [facility] states they have used all 11 refills and are requesting a new script. [facility]12-03-2024 Telephone encounter Note* Telephone Encounter - Nilda Albert - 08/19/2024 3:33 PM EST Prescription Refill Information The patient has been identified by name and date of : Yes Caregiver verified no other encounters exist for this prescription request: Yes Caregiver confirmed with patient/requestor that no other refills are due, in the near future, with this provider at this time: Yes The last office visit in the department: 07-01-24 Does the patient have a future office visit with this provider/department: Yes Requested Prescriptions Pending Prescriptions Disp Refills albuterol HFA (VENTOLIN HFA) 90 mcg/actuation inhaler 18 g 11 Sig: Inhale 2 Puffs as instructed every 4 hours as needed. Nilda Laughlin [facility] August 19, 2024 3:35 PM [facility]11-25-2024 Telephone encounter Note* Telephone Encounter - [place] Qian Rodrigues - 08/11/2024 10:25 AM EST Prescription Refill Information The patient has been identified by name and date of : Yes Caregiver verified no other encounters exist for this prescription request: Yes Caregiver confirmed with patient/requestor that no other refills are due, in the near future, with this provider at this time: Yes The last office visit in the department: 07/01/24 Does the patient have a future office visit with this provider/department: Yes Requested Prescriptions Pending Prescriptions Disp Refills dulaglutide (TRULICITY) 1.5 mg/0.5 mL pen injector 2 mL 2 Sig: Inject 1.5 mg subcutaneously one time a week. Inject dose once per week. Discard Pen After Refused Prescriptions Disp Refills dulaglutide (TRULICITY) 1.5 mg/0.5 mL pen injector 2 mL 2 Sig: Inject 1.5 mg subcutaneously one time a week. Inject dose once per week. Discard Pen After Refused By: KAILEE SALINAS Reason for Refusal: Records indicate that there is a valid prescription at the pharmacy Please note patient is using [facility] now; they called in the prescription. Qian Bear [facility] August 11, 2024 10:25 AM [facility]11-25-2024 Miscellaneous Notes* Telephone Encounter - [place] Qian Rodrigues - 08/11/2024 10:25 AM EST Prescription Refill Information The patient has been identified by name and date of : Yes Caregiver verified no other encounters exist for this prescription request: Yes Caregiver confirmed with patient/requestor that no other refills are due, in the near future, with this provider at this time: Yes The last office visit in the department: 07/01/24 Does the patient have a future office visit with this provider/department: Yes Requested Prescriptions Pending Prescriptions Disp Refills dulaglutide (TRULICITY) 1.5 mg/0.5 mL pen injector 2 mL 2 Sig: Inject 1.5 mg subcutaneously one time a week. Inject dose once per week. Discard Pen After Refused Prescriptions Disp Refills dulaglutide (TRULICITY) 1.5 mg/0.5 mL pen injector 2 mL 2 Sig: Inject 1.5 mg subcutaneously one time a week. Inject dose once per week. Discard Pen After Refused By: KAILEE SALINAS Reason for Refusal: Records indicate that there is a valid prescription at the pharmacy Please note patient is using [facility] now; they called in the prescription. Qian Rodrigues August 11, 2024 10:25 AM * Telephone Encounter - Kailee Salinas LPN - 08/06/2024 9:06 AM EST Our records show a valid rx at the pharmacy for medication being requested. Kailee Salinas LPN documented in this encounterDayton [facility]11-20-2024 Telephone encounter Note * Telephone Encounter - Kailee Salinas LPN - 08/06/2024 9:06 AM EST Our records show a valid rx at the pharmacy for medication being requested. Kailee Salinas LPN [facility]11-18-2024 Telephone encounter Note* Telephone Encounter - Araseli Butt - 08/04/2024 8:31 AM EST Referral received. Attempt # 2 LVM for patient. MoPub message sent to patient. [facility]11-18-2024 Miscellaneous Notes* Telephone Encounter - Araseli Butt - 08/04/2024 8:31 AM EST Referral received. Attempt # 2 LVM for patient. MyChart message sent to patient. documented in this encounterDayton Children'S Hospital11-14-2024 Telephone encounter Note * Telephone Encounter - ButtAraseli - 07/31/2024 8:17 AM EST Referral received. Attempt # 1 LVM for patient. MyChart message sent to patient. [facility]11-14-2024 Miscellaneous Notes* Telephone Encounter - Araseli Butt - 07/31/2024 8:17 AM EST Referral received. Attempt # 1 LVM for patient. MyChart message sent to patient. documented in this encounterDayton Children'S Hospital11-08-2024 Telephone encounter Note * Telephone Encounter - Trey Vera MA - 07/25/2024 1:20 PM EST Notified via [employer],. [facility]11-08-2024 Miscellaneous Notes* Telephone Encounter - Trey Vera MA - 07/25/2024 1:20 PM EST Notified via [employer],. * Telephone Encounter - Helen Sullivan, TAZ - 07/25/2024 8:40 AM EST New script for pt's Flexeril was sent to [facility] on 07/01/24 for 30 with 3 refills. Appears pt may have changed pharmacies. Called [facility] and spoke with Nanci. She states they will call [facility] to get the prescription. LM for pt to return the call to notify her of the above. * Telephone Encounter - Tanya Angelo - 07/24/2024 4:41 PM EST Prescription Refill Information The patient has been identified by name and date of : Yes Caregiver verified no other encounters exist for this prescription request: Yes Caregiver confirmed with patient/requestor that no other refills are due, in the near future, with this provider at this time: Yes The last office visit in the department: 07-01-24 Does the patient have a future office visit with this provider/department: Yes Requested Prescriptions Pending Prescriptions Disp Refills cyclobenzaprine (FLEXERIL) 10 mg tablet 30 tablet 2 Sig: Take 1 tablet by mouth three times a day as needed for muscle spasm. May make drowsy Tanya Rodrigues July 24, 2024 4:43 PM documented in this encounterDayton Children'[facility] Hospital11-08-2024 Telephone encounter Note * Telephone Encounter - Rodri Chauhan MD - 07/25/2024 11:17 AM EST The following approved medication requests have been transmitted electronically. Requested Prescriptions Signed Prescriptions Disp Refills traMADol (ULTRAM) 50 mg tablet 28 tablet 0 Sig: Take 1 tablet by mouth every 6 hours as needed for pain for up to 7 days. Authorizing Provider: RODRI CHAUHAN MD Has September 19 month FU. Last RX lasted about a month. [facility]11-08-2024 Miscellaneous Notes* Telephone Encounter - Rodri Chauhan MD - 07/25/2024 11:17 AM EST The following approved medication requests have been transmitted electronically. Requested Prescriptions Signed Prescriptions Disp Refills traMADol (ULTRAM) 50 mg tablet 28 tablet 0 Sig: Take 1 tablet by mouth every 6 hours as needed for pain for up to 7 days. Authorizing Provider: RODRI CHAUHAN MD Has Tanya 3 month FU. Last RX lasted about a month. * Telephone Encounter - Lizabeth Hurtado LPN - 07/24/2024 4:52 PM EST Spoke with patient. Patient has no concerns just was asking for refill request. Prescription Refill Information The patient has been identified by name and date of : Yes Caregiver verified no other encounters exist for this prescription request: Yes Caregiver confirmed with patient/requestor that no other refills are due, in the near future, with this provider at this time: Yes The last office visit in the department: 07/01/24 Does the patient have a future office visit with this provider/department: Yes Requested Prescriptions Pending Prescriptions Disp Refills traMADol (ULTRAM) 50 mg tablet 28 tablet 0 Sig: Take 1 tablet by mouth every 6 hours as needed for pain for up to 7 days. Lizabeth Hurtado LPN July 24, 2024 4:56 PM * Telephone Encounter - Tanya Angelo - 07/24/2024 4:44 PM EST Nanci is calling Rodri Chauhan MD today with concern regarding Refill Request and Medication Request traMADol (ULTRAM) 50 mg tablet 28 tablet 0 07/01/2024 07/08/2024 Sig: Take 1 tablet by mouth every 6 hours as needed for pain for up to 7 days. Sent to pharmacy as: traMADol (ULTRAM) 50 mg tablet [facility] Patient has been identified by name and birthdate. Duration of symptoms: N/A Person calling: self Call patient at: at home [phone] (home) [phone] (cell) Was an appointment scheduled: No Closing statement: Results or non-symptom based questions: Thank you for calling [facility], your call will be returned within the next business day. Tanya Rodrigues documented in this encounterDayton [facility]11-08-2024 Telephone encounter Note * Telephone Encounter - Helen Sullivan RN - 07/25/2024 8:40 AM EST New script for pt's Flexeril was sent to [facility] on 07/01/24 for 30 with 3 refills. Appears pt may have changed pharmacies. Called [facility] and spoke with Nanci. She states they will call [facility] to get the prescription. LM for pt to return the call to notify her of the above. [facility]11-07-2024 Telephone encounter Note* Telephone Encounter - Lizabeth Hurtado LPN - 07/24/2024 4:52 PM EST Spoke with patient. Patient has no concerns just was asking for refill request. Prescription Refill Information The patient has been identified by name and date of : Yes Caregiver verified no other encounters exist for this prescription request: Yes Caregiver confirmed with patient/requestor that no other refills are due, in the near future, with this provider at this time: Yes The last office visit in the department: 07/01/24 Does the patient have a future office visit with this provider/department: Yes Requested Prescriptions Pending Prescriptions Disp Refills traMADol (ULTRAM) 50 mg tablet 28 tablet 0 Sig: Take 1 tablet by mouth every 6 hours as needed for pain for up to 7 days. Lizabeth Hurtado LPN July 24, 2024 4:56 PM [facility]11-07-2024 Telephone encounter Note* Telephone Encounter - Tanya Angelo - 07/24/2024 4:44 PM EST Nanci is calling Rodri Chauhan MD today with concern regarding Refill Request and Medication Request traMADol (ULTRAM) 50 mg tablet 28 tablet 0 07/01/2024 07/08/2024 Sig: Take 1 tablet by mouth every 6 hours as needed for pain for up to 7 days. Sent to pharmacy as: traMADol (ULTRAM) 50 mg tablet [facility] Patient has been identified by name and birthdate. Duration of symptoms: N/A Person calling: self Call patient at: at home [phone] (home) [phone] (cell) Was an appointment scheduled: No Closing statement: Results or non-symptom based questions: Thank you for calling [facility], your call will be returned within the next business day. Tanya Rodrigues [facility]11-07-2024 Telephone encounter Note* Telephone Encounter - Tanya Angelo - 07/24/2024 4:41 PM EST Prescription Refill Information The patient has been identified by name and date of : Yes Caregiver verified no other encounters exist for this prescription request: Yes Caregiver confirmed with patient/requestor that no other refills are due, in the near future, with this provider at this time: Yes The last office visit in the department: 07-01-24 Does the patient have a future office visit with this provider/department: Yes Requested Prescriptions Pending Prescriptions Disp Refills cyclobenzaprine (FLEXERIL) 10 mg tablet 30 tablet 2 Sig: Take 1 tablet by mouth three times a day as needed for muscle spasm. May make drowsy Tanya Rodrigues July 24, 2024 4:43 PM [facility]11-07-2024 Telephone encounter Note* Telephone Encounter - Nuzhat Montes RN - 07/24/2024 4:39 PM EST Opened In Error [facility]11-07-2024 Miscellaneous Notes* Telephone Encounter - Nuzhat Montes RN - 07/24/2024 4:39 PM EST Opened In Error documented in this encounterDayton Children'S Hospital10-15-2024 Instructions* Patient Instructions* Rodri Chauhan MD - 07/01/2024 2:00 PM EDT - Increase Trulicity dose to 1.5 mg; refills sent to [facility]. - Take Trulicity as prescribed; if well-tolerated, increase to the next dose after 4 weeks. - Hold Trulicity for one week before any surgery requiring general anesthesia. - Take iron supplements on Sunday, Sunday, and Sunday as prescribed. - Take Flexeril as prescribed; refills sent to [facility]. - Take Tramadol as prescribed for back and hip pain; refills sent to [facility]. - Use Flovent inhaler as prescribed; rinse mouth after use to prevent thrush. - Maintain a high-protein diet as advised by your awning erector. - Monitor blood sugar levels regularly; aim to keep levels below 250 mg/dL. - Next lab tests (A1C, metabolic panel, blood counts) due after July 23. - Schedule a fasting cholesterol test within the next three months. - Follow-up appointment scheduled in three months; clinic will contact you with the date and time. documented in this encounterDayton Children'[facility] Hospital10-15-2024 History of Present illness Narrative* Rodri Chauhan MD - 07/01/2024 1:35 PM EDT This note was created using [employer]. Subjective Nanci Rodriguez is a 43 year old female. Patient presents with: F/U 6 Month SUBJECTIVE: Nanci Rodriguez is a 43 year old year old lady here today for 6 month follow up appointment for review of medical conditions. The patient is a 43-year-old female with a history of DM, chronic leg ulcer, and asthma, presentingfor a 6-month follow-up. The patient is currently focused on weight loss and glycemic control. She reports a recent weight reduction from 399 lbs to 380 lbs. She is under the care of a awning erector and is adhering to a high-protein diet. She is currently on Trulicity 0.75 mg and expresses interest in increasing the dosage to 1.5 mg to further assist with glycemic control and weight loss. She reports variable blood glucose levels, with occasional readings exceeding 250 mg/dL. She recalls a recent hypoglycemic episode last week, with a blood glucose level of 43 mg/dL, which she managed by consuming peanut butter. She denies identifying any specific triggers for this hypoglycemic event. She is also managing a chronic leg ulcer, which is currently infected. She is receiving weekly treatment at a wound care center under the supervision of Dr. Lord. Despite a year of treatment, the ulcer has not fully healed. She mentions a surgical intervention in September, during which the wound wassutured, but the stitches were later disrupted due to ambulation on a soft cast, contrary to medical advice. The wound is described as not too big but is complicated by induration of the surrounding calf tissue. She is currently using a 3M wrap, which has a tendency to slip. She reports significant exudate from the wound, necessitating dressing changes up to eight times daily. She is on antibiotic therapy, which has reportedly reduced the exudate. She is scheduled for a follow-up appointment tomorrow, where she anticipates a referral to a plastic surgeon for further management. The patient has a history of anemia, for which she is taking iron supplements on Mondays, Wednesdays, and Fridays. She also reports chronic low back pain and bilateral sciatica, with the right side being more affected. She is currently prescribed Tylenol #3 for pain management and inquires about the possibility of switching to tramadol, which she has previously tolerated well. She has a history of asthma and was recently treated for bronchitis at an urgent care facility, where she was prescribed a steroid inhaler. She expresses reluctance to use the inhaler due to a previous episode of oral thrush. She is also on Dulera and is diligent about oral rinsing to prevent thrush. PAST MEDICAL HISTORY Diagnosis Date Abnormal glandular [...] Unspecified asthma(493.90) Current Outpatient Medications Medication Sig topiramate (TOPAMAX) 100 mg tablet Take 1 tablet by mouth two times a day. lansoprazole (PREVACID) 30 mg capsule Take 1 capsule by mouth daily before breakfast. dulaglutide (TRULICITY) 0.75 mg/0.5 mL pen injector Inject 0.75 mg subcutaneously one time a week. Inject dose once per week. Discard Pen After fluticasone (FLOVENT HFA) 110 mcg/actuation inhaler Inhale 1 Puff as instructed two times a day. Shake well before use. Rinse mouth after use. pramipexole (MIRAPEX) 1.5 mg tablet Take 1 tablet by mouth daily at bedtime. QUEtiapine (SEROQUEL) 25 mg tablet Take 75 mg by mouth daily at bedtime. CPAP Needs replacement CPAP @ 15 cm of water with humidification. Mask (per patient preference) optional chin strap (if indicated) , filters, tubing, humidifier and lifetime supplies. G47.33 MARIA TERESA on CPAP furosemide (LASIX) 40 mg tablet Take 1 tablet by mouth once daily. lamoTRIgine (LAMICTAL) 200 mg tablet Take 1 tablet by mouth two times a day. diphenhydrAMINE (BENADRYL) 25 mg capsule Take 1 capsule by mouth every 6 hours as needed for itching/rash. ferrous sulfate 325 mg (65 mg iron) tablet Take 1 tablet by mouth every Sunday, Sunday, and Sunday. SUMAtriptan (IMITREX) 25 mg tablet Take 1 tablet by mouth at onset of headache and may repeat in 2 hrs if needed. glucose 4 gram chewable tablet Take 4 tablets by mouth as needed for low blood sugar. mometasone-formoterol (DULERA) 50-5 mcg/actuation HFA aerosol inhaler Inhale 1 Puff as instructed two times a day. cyclobenzaprine (FLEXERIL) 10 mg tablet Take 1 tablet by mouth three times a day as needed for muscle spasm. May make drowsy promethazine (PHENERGAN) 12.5 mg tablet Take 1 tablet by mouth four times a day as needed for nausea/vomiting. lidocaine (LIDODERM) 5 % Apply 1 Patch as directed every 24 hours. Remove after 12 hours. Lancets Test blood sugar(s) once times daily. Dx: Type 2 DM - Controlled E11.9 Insulin: No montelukast (SINGULAIR) 10 mg tablet Take 1 tablet by mouth daily at bedtime. blood sugar diagnostic (BLOOD GLUCOSE TEST) test strip Test blood sugar(s) one time daily. Dx: Type2 DM - Controlled E11.9 Insulin: No metFORMIN (GLUCOPHAGE) 500 mg tablet Take 2 tablets by mouth two times a day with meals. Take one additional 500 mg tab with breakfast or lunch until BS less than 250 glimepiride (AMARYL) 4 mg tablet Take 1 tablet by mouth daily with breakfast. Dose change, take onedaily albuterol HFA (VENTOLIN HFA) 90 mcg/actuation inhaler Inhale 2 Puffs as instructed every 4 hours asneeded. silver sulfADIAZINE (SILVADENE) 1 % cream Apply 1 application to affected area once daily. Albuterol Sulfate 1.25 mg/3 mL nebulizer solution Use 1 Ampule via nebulizer every 4 hours as needed for wheezing/shortness of breath. bacitracin 500 unit/gram ointment APPLY TO THE AFFECTED AREA(S) EVERY DAY ARIPiprazole (ABILIFY) 5 mg tablet Take 1 tablet by mouth once daily. loratadine (CLARITIN) 10 mg tablet Take 1 tablet by mouth once daily. FREESTYLE FREEDOM LITE monitoring kit USE DIRECTED CPAP Needs lifetime supplies (mask, hoses, headgear, filters, water chamber) G47.33 (already has CPAP) LORazepam (ATIVAN) 1 mg tablet Take 1 tablet by mouth twice daily. As needed. Nebulizer NEBULIZER and Supplies FOR HOME USE. DX: J45.40 citalopram (CELEXA) 40 mg tablet Take 40 mg by mouth once daily. [facility] Chlorhexidine Gluconate (PERIDEX) 0.12 % solution Use 15 mL as instructed two times a day. Rinse around mouth for 30 seconds then expectorate (Patient not taking: Reported on 07/01/2024) No current facility-administered medications for this visit. Review of Systems Objective BP 139/84 Pulse 108 Resp 20 Wt (!) 174.5 kg (384 lb 11.2 oz) LMP 04/24/2024 (Approximate) BMI 67.08 kg/m Physical Exam Constitutional: Appearance: Normal appearance. HENT: Head: Normocephalic. Eyes: Conjunctiva/sclera: Conjunctivae normal. Cardiovascular: Rate and Rhythm: Normal rate and regular rhythm. Heart sounds: Normal heart sounds. Pulmonary: Effort: Pulmonary effort is normal. Breath sounds: Normal breath sounds. Musculoskeletal: Right lower le+ Edema present. Left lower le+ Edema present. Skin: General: Skin is warm and dry. Neurological: General: No focal deficit present. Mental Status: She is alert and oriented to person, place, and time. Psychiatric: Mood and Affect: Mood normal. Behavior: Behavior normal. Thought Content: Thought content normal. Judgment: Judgment normal. Hemoglobin A1C (%) Date Value 04/22/2024 10.7 09/21/2023 7.3 03/06/2023 9.0 2022 7.9 02/02/2021 11.2 01/03/2021 12.6 03/08/2020 7.6 11/10/2019 9.6 07/09/2019 8.4 Assessment and Plan # Uncontrolled type 2 diabetes mellitus with hyperglycemia (HCC) (E11.65) - Recent A1c was 10.7%, indicating poor glycemic control. - Blood glucose levels have been fluctuating, with some readings as low as 43 mg/dL. - Increased Trulicity dose from 0.75 mg to 1.5 mg; instructed patient to monitor for side effects such as nausea and vomiting. - Educated patient on the importance of holding Trulicity for one week prior to any surgery requiring general anesthesia to prevent aspiration pneumonia. - Ordered standing labs including A1c and metabolic panel to be done every three months. - Follow-up in three months to reassess glycemic control. # Iron deficiency anemia, unspecified iron deficiency anemia type (D50.9) - Hemoglobin improved to 10.3 g/dL from 8.7 g/dL in September. - Continuing oral iron supplementation on Sunday, Sunday, and Sunday. - Ordered standing CBC to monitor hemoglobin and hematocrit levels every three months. # Lumbago (M54.50) # Chronic radicular low back pain (M54.16) - Chronic low back pain with bilateral sciatica, worse on the right side. - Refilled Flexeril. - Prescribed Tramadol for breakthrough pain, to be taken every 6 hours as needed. - Advised patient to limit activity during episodes of severe pain. # Class 3 severe obesity due to excess calories with serious comorbidity and body mass index (BMI) of 60.0 to 69.9 in adult ([facility]) (E66.813) - Current weight is 380 lbs, down from 399 lbs. - Encouraged continuation of weight loss efforts to aid in glycemic control and reduce strain on the lower back. - Discussed potential further dose escalation of Trulicity to assist with weight loss. - Follow-up in three months to monitor progress. # Mild intermittent asthma with acute exacerbation (J45.21) - Recent exacerbation treated with Flovent inhaler. - Patient hesitant to use due to previous episodes of oral thrush. - Educated on the importance of rinsing the mouth after inhaler use to prevent thrush. - Advised to continue using a nebulizer as needed. # Chronic skin ulcer, limited to breakdown of skin ([facility]) (L98.491) - Chronic ulcer on the leg, currently under the care of Dr. Lord at the wound center. - Weekly follow-ups with Dr. Lord; referral to a plastic surgeon for further management. - Currently using a 3M wrap and ABD pads to manage exudate. - On antibiotics to control infection and reduce exudate. - Advised to elevate the leg and perform ankle pumps to reduce edema. - Follow-up with the wound center tomorrow. Rodri Chauhan MD documented in this encounterDayton [facility]10-08-2024 Telephone encounter Note * Telephone Encounter - Winter Roblero LPN - 06/24/2024 9:14 AM EDT The patient has been identified by name and date of : Yes Caregiver verified no other encounters exist for this prescription request: Yes Caregiver confirmed with patient/requestor that no other refills are due, in the near future, with this provider at this time: Yes The last office visit in the department: 04/24/2024 Does the patient have a future office visit with this provider/department: Yes 07/01/2024 Requested Prescriptions Pending Prescriptions Disp Refills topiramate (TOPAMAX) 100 mg tablet 60 tablet 11 Sig: Take 1 tablet by mouth two times a day. lansoprazole (PREVACID) 30 mg capsule 30 capsule 11 Sig: Take 1 capsule by mouth daily before breakfast. Winter Roblero LPN June 24, 2024 9:16 AM [facility]10-08-2024 Miscellaneous Notes* Telephone Encounter - Winter Roblero LPN - 06/24/2024 9:14 AM EDT The patient has been identified by name and date of : Yes Caregiver verified no other encounters exist for this prescription request: Yes Caregiver confirmed with patient/requestor that no other refills are due, in the near future, with this provider at this time: Yes The last office visit in the department: 04/24/2024 Does the patient have a future office visit with this provider/department: Yes 07/01/2024 Requested Prescriptions Pending Prescriptions Disp Refills topiramate (TOPAMAX) 100 mg tablet 60 tablet 11 Sig: Take 1 tablet by mouth two times a day. lansoprazole (PREVACID) 30 mg capsule 30 capsule 11 Sig: Take 1 capsule by mouth daily before breakfast. Winter Roblero LPN June 24, 2024 9:16 AM documented in this encounterDayton Children'[facility] Hospital09-24-2024 Telephone encounter Note * Telephone Encounter - Davy Nunez - 06/10/2024 10:33 AM EDT Prescription Refill Information The patient has been identified by name and date of : Yes Caregiver verified no other encounters exist for this prescription request: Yes Caregiver confirmed with patient/requestor that no other refills are due, in the near future, with this provider at this time: Yes The last office visit in the department: 06/02/24 Does the patient have a future office visit with this provider/department: Yes Requested Prescriptions Pending Prescriptions Disp Refills dulaglutide (TRULICITY) 0.75 mg/0.5 mL pen injector 2 mL 1 Sig: Inject 0.75 mg subcutaneously one time a week. Inject dose once per week. Discard Pen After Davy Rodrigues June 10, 2024 10:34 AM [facility] Work Phone: [phone] 204-582009-24-2024 Miscellaneous Notes* Telephone Encounter - Davy Nunez - 06/10/2024 10:33 AM EDT Prescription Refill Information The patient has been identified by name and date of : Yes Caregiver verified no other encounters exist for this prescription request: Yes Caregiver confirmed with patient/requestor that no other refills are due, in the near future, with this provider at this time: Yes The last office visit in the department: 06/02/24 Does the patient have a future office visit with this provider/department: Yes Requested Prescriptions Pending Prescriptions Disp Refills dulaglutide (TRULICITY) 0.75 mg/0.5 mL pen injector 2 mL 1 Sig: Inject 0.75 mg subcutaneously one time a week. Inject dose once per week. Discard Pen After Davy Rodrigues June 10, 2024 10:34 AM documented in this encounterDayton Children'S Hospital09-16-2024 History of Present illness Narrative* Erendira Noe APRN.NARENDRA - 06/02/2024 11:23 AM EDT CC: Patient presents with: Cough: With congestion & SOB x 1.5 month HPI: Nanci Rodriguez is a 43 year old female who presents to the office with complaint of cough, nonproductive and wheezing for months. Symptoms are worsening Associated symptoms includes wheezing. Denies nausea, vomiting , and diarrhea. Treatments tried include nothing so far. with no relief of symptoms. Sick contacts: unknown. History of asthma, frequent episodes of bronchitis, chronic bronchitis, bronchiectasis or COPD: No Smoker: No Seasonal/environmental allergies: No The ROS is otherwise negative. The patient's pmh, medications, allergies, and past visits are reviewed. PHYSICAL EXAM: BP 128/84 Pulse 115 Temp 37.2 C (99 F) (Right Tympanic) Resp 24 Wt (!) 177.9 kg (392 lb 3.2oz) LMP 04/24/2024 (Approximate) SpO2 98% BMI 68.38 kg/m General appearance: alert, cooperative, pleasant, in no acute distress Head: Normocephalic Eyes: EOM's intact, conjunctiva pink and moist, no icterus, sclera white, non-injected Ears: Right ear: External ear/canal- Normal, TM - clear with good landmarks. Left ear: External ear/canal- Normal, TM - clear with good landmarks Oropharynx:moist without lesions, No erythema, exudates or tonsillar hypertrophy. Heart: Negative. RRR without obvious murmur, gallop, or rubs. No ectopy. Lungs: clear to auscultation, without rales or wheeze, good air exchange, diminished breath sounds in bases PAST MEDICAL HISTORY Diagnosis Date Abnormal glandular [...] 11/07/2006 Right hip pain 12/15/2013 Unspecified asthma(493.90) PAST SURGICAL HISTORY Procedure Laterality Date BACK SURGERY HX Pain block COLONOSCOPY W/BIOPSY SINGLE/MULTIPLE 10/22/2017 EGD TRANSORAL BIOPSY SINGLE/MULTIPLE 10/22/2017 RPR UMBILICAL HRNA 5 YRS/> REDUCIBLE 10/05/[address] mesh VAGINOSCOPY ALLERGIES Penicillins, Melatonin, and Wellbutrin [Bupropion] MEDICATIONS acetaminophen-codeine (TYLENOL-COD #3) 300-30 mg per tablet Take 1 tablet by mouth every 6 hours asneeded for pain for up to 7 days. pramipexole (MIRAPEX) 1.5 mg tablet Take 1 tablet by mouth daily at bedtime. QUEtiapine (SEROQUEL) 25 mg tablet Take 75 mg by mouth daily at bedtime. CPAP Needs replacement CPAP @ 15 cm of water with humidification. Mask (per patient preference) optional chin strap (if indicated) , filters, tubing, humidifier and lifetime supplies. G47.33 MARIA TERESA on CPAP furosemide (LASIX) 40 mg tablet Take 1 tablet by mouth once daily. lamoTRIgine (LAMICTAL) 200 mg tablet Take 1 tablet by mouth two times a day. diphenhydrAMINE (BENADRYL) 25 mg capsule Take 1 capsule by mouth every 6 hours as needed for itching/rash. ferrous sulfate 325 mg (65 mg iron) tablet Take 1 tablet by mouth every Sunday, Sunday, and Sunday. SUMAtriptan (IMITREX) 25 mg tablet Take 1 tablet by mouth at onset of headache and may repeat in 2 hrs if needed. dulaglutide (TRULICITY) 0.75 mg/0.5 mL pen injector Inject 0.75 mg subcutaneously one time a week. Inject dose once per week. Discard Pen After glucose 4 gram chewable tablet Take 4 tablets by mouth as needed for low blood sugar. mometasone-formoterol (DULERA) 50-5 mcg/actuation HFA aerosol inhaler Inhale 1 Puff as instructed two times a day. cyclobenzaprine (FLEXERIL) 10 mg tablet Take 1 tablet by mouth three times a day as needed for muscle spasm. May make drowsy promethazine (PHENERGAN) 12.5 mg tablet Take 1 tablet by mouth four times a day as needed for nausea/vomiting. lidocaine (LIDODERM) 5 % Apply 1 Patch as directed every 24 hours. Remove after 12 hours. Lancets Test blood sugar(s) once times daily. Dx: Type 2 DM - Controlled E11.9 Insulin: No montelukast (SINGULAIR) 10 mg tablet Take 1 tablet by mouth daily at bedtime. blood sugar diagnostic (BLOOD GLUCOSE TEST) test strip Test blood sugar(s) one time daily. Dx: Type2 DM - Controlled E11.9 Insulin: No metFORMIN (GLUCOPHAGE) 500 mg tablet Take 2 tablets by mouth two times a day with meals. Take one additional 500 mg tab with breakfast or lunch until BS less than 250 glimepiride (AMARYL) 4 mg tablet Take 1 tablet by mouth daily with breakfast. Dose change, take onedaily albuterol HFA (VENTOLIN HFA) 90 mcg/actuation inhaler Inhale 2 Puffs as instructed every 4 hours asneeded. topiramate (TOPAMAX) 100 mg tablet Take 1 tablet by mouth two times a day. lansoprazole (PREVACID) 30 mg capsule Take 1 capsule by mouth daily before breakfast. Chlorhexidine Gluconate (PERIDEX) 0.12 % solution Use 15 mL as instructed two times a day. Rinse around mouth for 30 seconds then expectorate silver sulfADIAZINE (SILVADENE) 1 % cream Apply 1 application to affected area once daily. Albuterol Sulfate 1.25 mg/3 mL nebulizer solution Use 1 Ampule via nebulizer every 4 hours as needed for wheezing/shortness of breath. bacitracin 500 unit/gram ointment APPLY TO THE AFFECTED AREA(S) EVERY DAY ARIPiprazole (ABILIFY) 5 mg tablet Take 1 tablet by mouth once daily. loratadine (CLARITIN) 10 mg tablet Take 1 tablet by mouth once daily. [employer] LITE monitoring kit USE DIRECTED CPAP Needs lifetime supplies (mask, hoses, headgear, filters, water chamber) G47.33 (already has CPAP) LORazepam (ATIVAN) 1 mg tablet Take 1 tablet by mouth twice daily. As needed. Nebulizer NEBULIZER and Supplies FOR HOME USE. DX: J45.40 citalopram (CELEXA) 40 mg tablet Take 40 mg by mouth once daily. [facility] FAMILY HISTORY Problem Relation Age of Onset other (hepatitis b) Mother Lung Cancer Mother other (hip cancer) Mother Asthma Father Hypertension Father Diabetes Father Hypertension Brother adhd Asthma Brother other (lung cancer) Maternal Uncle Social History Tobacco Use Smoking status: Every Day Current packs/day: 0.25 Average packs/day: 0.3 packs/day for 25.8 years (6.4 ttl pk-yrs) Types: Cigarettes Start date: 08/17/1998 Smokeless tobacco: Never Substance Use Topics Alcohol use: Never Drug use: No Comment: Past history of Marjiuana use ASSESSMENT/PLAN: 1. Respiratory infection - ICD9: 519.8, ICD10: J98.8 - DOXYCYCLINE HYCLATE 100 MG CAPSULE - BENZONATATE 100 MG CAPSULE - FLUTICASONE PROPIONATE 110 MCG/ACTUATION HFA AEROSOL INHALER Prescription instructions reviewed with patient as applicable. Potential red flag symptoms discussed with the patient. Reviewed appropriate action plan to take if red flag symptoms occur. Patient agreeable to treatment plan. Erendira Noe APRN.NARENDRA documented in this encounterDayton [facility] Telephone encounter Note * Telephone Encounter - Rdori Chauhan MD - 05/30/2024 6:43 PM EDT The following approved medication requests have been transmitted electronically. Requested Prescriptions Signed Prescriptions Disp Refills acetaminophen-codeine (TYLENOL-COD #3) 300-30 mg per tablet 28 tablet 0 Sig: Take 1 tablet by mouth every 6 hours as needed for pain for up to 7 days. Authorizing Provider: RODRI CHAUHAN MD [facility]09-[facility] Miscellaneous Notes* Telephone Encounter - Rodri Chauhan MD - 05/30/2024 6:43 PM EDT The following approved medication requests have been transmitted electronically. Requested Prescriptions Signed Prescriptions Disp Refills acetaminophen-codeine (TYLENOL-COD #3) 300-30 mg per tablet 28 tablet 0 Sig: Take 1 tablet by mouth every 6 hours as needed for pain for up to 7 days. Authorizing Provider: RODRI CHAUHAN MD * Telephone Encounter - Nilda Albert Luis Enrique - 05/30/2024 2:15 PM EDT Prescription Refill Information The patient has been identified by name and date of : Yes Caregiver verified no other encounters exist for this prescription request: Yes Caregiver confirmed with patient/requestor that no other refills are due, in the near future, with this provider at this time: Yes The last office visit in the department: 04-24-24 Does the patient have a future office visit with this provider/department: Yes Requested prescriptions Disp Refills Start End acetaminophen-codeine (TYLENOL-COD #3) 300-30 mg per tablet 28 tablet 0 04/24/2024 05/01/2024 Sig: Take 1 tablet by mouth every 6 hours as needed for pain for up to 7 days. Sent to pharmacy as: acetaminophen-codeine (TYLENOL-COD #3) 300-30 mg per tablet Class: Normal Notes to Pharmacy: Aware not to take when takes lorazepam Route: [facility] May 30, 2024 2:17 PM documented in this encounterDayton Children'[facility]09-13-2024 Telephone encounter Note * Telephone Encounter - Nilda Albert - 05/30/2024 2:15 PM EDT Prescription Refill Information The patient has been identified by name and date of : Yes Caregiver verified no other encounters exist for this prescription request: Yes Caregiver confirmed with patient/requestor that no other refills are due, in the near future, with this provider at this time: Yes The last office visit in the department: 04-24-24 Does the patient have a future office visit with this provider/department: Yes Requested prescriptions Disp Refills Start End acetaminophen-codeine (TYLENOL-COD #3) 300-30 mg per tablet 28 tablet 0 04/24/2024 05/01/2024 Sig: Take 1 tablet by mouth every 6 hours as needed for pain for up to 7 days. Sent to pharmacy as: acetaminophen-codeine (TYLENOL-COD #3) 300-30 mg per tablet Class: Normal Notes to Pharmacy: Aware not to take when takes lorazepam Route: [facility] May 30, 2024 2:17 PM [facility] Work Phone: [phone] Telephone encounter Note* Telephone Encounter - Zunilda Jaramillo APRN.CNP - 05/21/2024 2:36 PM EDT Looks like she was seen for this in 05/13, okay to keep appointment but if persistent or worsening then agree that she needs seen sooner. [facility]09-[facility] Miscellaneous Notes* Telephone Encounter - Zunilda Jaramillo APRN.CNP - 05/21/2024 2:36 PM EDT Looks like she was seen for this in 05/13, okay to keep appointment but if persistent or worsening then agree that she needs seen sooner. * Telephone Encounter - Nuzhat Montes RN - 05/20/2024 11:49 AM EDT Patient call in for persistent cough x 2 months. Patient states that yesterday she was coughing so hard that she began puking. Patient states that when she gets in coughing fits she has a hard time breathing. Nurse Triage assessment completed with protocol recommending for disposition of see PCP in 24 hours. Offered to schedule patient with PCP team. Patient states that she does not have any transportation for 2 weeks. Advised patient that she needs to be seen by provider to assess. Patient voiced understanding. Care advice reviewed with patient, patient stated understanding. Patient advised to contact office or seek evaluation in urgent care or ER if symptoms persist or gets worse. Reason for Disposition SEVERE coughing spells (e.g., whooping sound after coughing, vomiting after coughing) Answer Assessment - Initial Assessment Questions 1. ONSET: Has had cough x 2 months 2. SEVERITY: Patient states that she was coughing so hard that she started puking. 3. SPUTUM: Little Yellow mucous; Not much 4. HEMOPTYSIS: Denies 5. DIFFICULTY BREATHING: No shortness of breath with rest. Patient states that when she has coughing fit she starts to have issues with breathing. Has some shortness of breath with exertion. 6. FEVER: Denies fever currently. Had a fever of 100.5 5 days ago. 7. CARDIAC HISTORY: Denies. 8. LUNG HISTORY: Asthma and COPD 9. PE RISK FACTORS: Denies 10. OTHER SYMPTOMS: Wheezing from asthma Protocols used: Cough - [id number] documented in this encounterDayton Children'[facility] Hospital09-04-2024 Telephone encounter Note * Telephone Encounter - Jo Ann Robert - 05/21/2024 9:32 AM EDT Prescription Refill Information The patient has been identified by name and date of : Yes Caregiver verified no other encounters exist for this prescription request: Yes Caregiver confirmed with patient/requestor that no other refills are due, in the near future, with this provider at this time: Yes The last office visit in the department: 04/24/24 Does the patient have a future office visit with this provider/department: Yes Requested Prescriptions Pending Prescriptions Disp Refills pramipexole (MIRAPEX) 1.5 mg tablet 30 tablet 11 Sig: Take 1 tablet by mouth daily at bedtime. Jo Ann Rodrigues May 21, 2024 9:32 AM [facility]09-04-[facility] Miscellaneous Notes* Telephone Encounter - Jo Ann Robert - 05/21/2024 9:32 AM EDT Prescription Refill Information The patient has been identified by name and date of : Yes Caregiver verified no other encounters exist for this prescription request: Yes Caregiver confirmed with patient/requestor that no other refills are due, in the near future, with this provider at this time: Yes The last office visit in the department: 04/24/24 Does the patient have a future office visit with this provider/department: Yes Requested Prescriptions Pending Prescriptions Disp Refills pramipexole (MIRAPEX) 1.5 mg tablet 30 tablet 11 Sig: Take 1 tablet by mouth daily at bedtime. Jo Ann Rodrigues May 21, 2024 9:32 AM documented in this encounterDayton Children'[facility] Hospital09-03-2024 Telephone encounter Note * Telephone Encounter - Nuzhat Montes RN - 05/20/2024 11:49 AM EDT Patient call in for persistent cough x 2 months. Patient states that yesterday she was coughing so hard that she began puking. Patient states that when she gets in coughing fits she has a hard time breathing. Nurse Triage assessment completed with protocol recommending for disposition of see PCP in 24 hours. Offered to schedule patient with PCP team. Patient states that she does not have any transportation for 2 weeks. Advised patient that she needs to be seen by provider to assess. Patient voiced understanding. Care advice reviewed with patient, patient stated understanding. Patient advised to contact office or seek evaluation in urgent care or ER if symptoms persist or gets worse. Reason for Disposition SEVERE coughing spells (e.g., whooping sound after coughing, vomiting after coughing) Answer Assessment - Initial Assessment Questions 1. ONSET: Has had cough x 2 months 2. SEVERITY: Patient states that she was coughing so hard that she started puking. 3. SPUTUM: Little Yellow mucous; Not much 4. HEMOPTYSIS: Denies 5. DIFFICULTY BREATHING: No shortness of breath with rest. Patient states that when she has coughing fit she starts to have issues with breathing. Has some shortness of breath with exertion. 6. FEVER: Denies fever currently. Had a fever of 100.5 5 days ago. 7. CARDIAC HISTORY: Denies. 8. LUNG HISTORY: Asthma and COPD 9. PE RISK FACTORS: Denies 10. OTHER SYMPTOMS: Wheezing from asthma Protocols used: Cough - [id number] [facility]08-[facility] Instructions* Patient Instructions* Michela James APRN.SENIOR TRAINER - 05/13/2024 8:09 PM EDT ASSESSMENT/PLAN: 1. Persistent cough for 3 weeks or longer - ICD9: 786.2, ICD10: R05.3 (primary diagnosis) - XR CHEST 2V FRONTAL/LAT IMPRESSION: No acute radiographic abnormality. Financial Services Professional: PAUL Transcribe Date/Time: May 13 2024 8:01P Dictated by : KAREEM MAYEN MD 2. Wheezing - ICD9: 786.07, ICD10: R06.2 - PREDNISONE 20 MG TABLET - Follow-up with your PCP in 3-5 days if symptoms have not improved or sooner if symptoms worsen - Discussed red flags and need for immediate medical evaluation if any occur. - Discussed supportive care treatment with fluids, rest and analgesia. - Discussed expected course of illness Michela James APRN.SENIOR TRAINER documented in this encounterDayton Children'S Hospital08-27-2024 History of Present illness Narrative* Alem Marinelli RT(R) - 05/13/2024 7:00 PM EDT Radiology Service Progress Note PATIENT NAME: Nanci Rodriguez DATE OF SERVICE: May 13, 2024 TIME: 7:03 PM PATIENT IDENTITY VERIFICATION COMPLETED USING TWO (2) IDENTIFIERS: Name and Date of confirmedby patient verbally. FALL SCREENING: Has the patient had 2 falls in the last year or 1 fall with injury or currently using an Ambulatory Assistive Device (Walker, Cane, Wheelchair, Crutches, etc.)? No PATIENT GENDER DATA: Female. status: : No status: NO. PATIENT RELEVANT IMPLANT DATA REVIEWED: Yes PATIENT PRESENTS WITH AN IMPLANTABLE OR ATTACHED STENOTYPE MACHINE OPERATOR: No RADIOLOGY DEPARTMENT: General X-ray: Exam(s) Completed: Chest X-Ray PERIPHERAL IV DATA: Not applicable SIGNED BY: RT Zac(R) May 13, 2024 7:03 PM documented in this encounterDayton Children'S Hospital08-27-2024 History of Present illness Narrative* Michela James APRN.CNP - 05/13/2024 6:57 PM EDT Subjective Cough Associated symptoms include chest pain (due to frequent cough), myalgias, shortness of breath and wheezing. Pertinent negatives include no chills. Nanci Rodriguez is a 43 year old female who presents with cough for months worse in the past fewdays. She states she has been coughing so much her chest and her ribs and her arms hurt. She has a history of asthma and COPD. She has not taken any medication at home for her cough or her pain. States she has had a low grade fever (100.7 degrees F at home yesterday). Review of Systems Constitutional: Positive for fever and malaise/fatigue. Negative for chills. Respiratory: Positive for cough, sputum production, shortness of breath and wheezing. Negative for hemoptysis. Cardiovascular: Positive for chest pain (due to frequent cough). Musculoskeletal: Positive for myalgias. BP 142/84 Pulse 106 Temp 37.2 C (99 F) (Tympanic) Resp 20 Wt (!) 181.2 kg (399 lb 7.6 oz) LMP 11/19/2023 (Approximate) SpO2 96% BMI 69.65 kg/m PAST MEDICAL HISTORY 2003: Abnormal glandular Papanicolaou smear of cervix Comment: Abn. Pap smear (cervix) No date: Allergic rhinitis, cause unspecified 12/26/2011: Bipolar I disorder, most recent episode (or current) depressed, moderate No date: CPAP (continuous positive airway pressure) dependence No date: Depressive disorder, not elsewhere classified 12/15/2013: Hip tendonitis 12/11/2016: Left knee pain 03/29/2006: Migraine without aura, without mention of intractable migraine without mention of status migrainosus No date: Mild dysplasia of cervix No date: Obesity 12/11/2016: Osteoarthritis of left knee 11/07/2006: Personal history of pre-term labor 12/15/2013: Right hip pain No date: Unspecified asthma(493.90) PAST SURGICAL HISTORY No date: BACK SURGERY HX Comment: Pain block 10/22/2017: COLONOSCOPY W/BIOPSY SINGLE/MULTIPLE 10/22/2017: EGD TRANSORAL BIOPSY SINGLE/MULTIPLE 10/05/2016: RPR UMBILICAL HRNA 5 YRS/> REDUCIBLE Comment: 8cm ventralex ST mesh No date: VAGINOSCOPY ALLERGIES Penicillins, Melatonin, and Wellbutrin [Bupropion] MEDICATIONS QUEtiapine (SEROQUEL) 25 mg tablet Take 75 mg by mouth daily at bedtime. CPAP Needs replacement CPAP @ 15 cm of water with humidification. Mask (per patient preference) optional chin strap (if indicated) , filters, tubing, humidifier and lifetime supplies. G47.33 MARIA TERESA on CPAP furosemide (LASIX) 40 mg tablet Take 1 tablet by mouth once daily. lamoTRIgine (LAMICTAL) 200 mg tablet Take 1 tablet by mouth two times a day. diphenhydrAMINE (BENADRYL) 25 mg capsule Take 1 capsule by mouth every 6 hours as needed for itching/rash. ferrous sulfate 325 mg (65 mg iron) tablet Take 1 tablet by mouth every Sunday, Sunday, and Sunday. SUMAtriptan (IMITREX) 25 mg tablet Take 1 tablet by mouth at onset of headache and may repeat in 2 hrs if needed. dulaglutide (TRULICITY) 0.75 mg/0.5 mL pen injector Inject 0.75 mg subcutaneously one time a week. Inject dose once per week. Discard Pen After glucose 4 gram chewable tablet Take 4 tablets by mouth as needed for low blood sugar. mometasone-formoterol (DULERA) 50-5 mcg/actuation HFA aerosol inhaler Inhale 1 Puff as instructed two times a day. cyclobenzaprine (FLEXERIL) 10 mg tablet Take 1 tablet by mouth three times a day as needed for muscle spasm. May make drowsy promethazine (PHENERGAN) 12.5 mg tablet Take 1 tablet by mouth four times a day as needed for nausea/vomiting. lidocaine (LIDODERM) 5 % Apply 1 Patch as directed every 24 hours. Remove after 12 hours. Lancets Test blood sugar(s) once times daily. Dx: Type 2 DM - Controlled E11.9 Insulin: No montelukast (SINGULAIR) 10 mg tablet Take 1 tablet by mouth daily at bedtime. blood sugar diagnostic (BLOOD GLUCOSE TEST) test strip Test blood sugar(s) one time daily. Dx: Type2 DM - Controlled E11.9 Insulin: No metFORMIN (GLUCOPHAGE) 500 mg tablet Take 2 tablets by mouth two times a day with meals. Take one additional 500 mg tab with breakfast or lunch until BS less than 250 glimepiride (AMARYL) 4 mg tablet Take 1 tablet by mouth daily with breakfast. Dose change, take onedaily albuterol HFA (VENTOLIN HFA) 90 mcg/actuation inhaler Inhale 2 Puffs as instructed every 4 hours asneeded. topiramate (TOPAMAX) 100 mg tablet Take 1 [...] 1 application to affected area once daily. Albuterol Sulfate 1.25 mg/3 mL nebulizer solution Use 1 Ampule via nebulizer every 4 hours as needed for wheezing/shortness of breath. bacitracin 500 unit/gram ointment APPLY TO THE AFFECTED AREA(S) EVERY DAY ARIPiprazole (ABILIFY) 5 mg tablet Take 1 tablet by mouth once daily. loratadine (CLARITIN) 10 mg tablet Take 1 tablet by mouth once daily. [employer] LITE monitoring kit USE DIRECTED CPAP Needs lifetime supplies (mask, hoses, headgear, filters, water chamber) G47.33 (already has CPAP) LORazepam (ATIVAN) 1 mg tablet Take 1 tablet by mouth twice daily. As needed. Nebulizer NEBULIZER and Supplies FOR HOME USE. DX: J45.40 citalopram (CELEXA) 40 mg tablet Take 40 mg by mouth once daily. [facility] FAMILY HISTORY Problem Relation Age of Onset other (hepatitis b) Mother Lung Cancer Mother other (hip cancer) Mother Asthma Father Hypertension Father Diabetes Father Hypertension Brother adhd Asthma Brother other (lung cancer) Maternal Uncle Social History Tobacco Use Smoking status: Every Day Current packs/day: 0.25 Average packs/day: 0.3 packs/day for 25.7 years (6.4 ttl pk-yrs) Types: Cigarettes Start date: 08/17/1998 Smokeless tobacco: Never Substance Use Topics Alcohol use: Never Drug use: No Comment: Past history of Marjiuana use Objective Physical Exam Vitals and nursing note reviewed. Constitutional: General: She is not in acute distress. Appearance: Normal appearance. She is obese. Cardiovascular: Rate and Rhythm: Normal rate. Rhythm irregular. Pulmonary: Effort: Pulmonary effort is normal. No respiratory distress. Breath sounds: Wheezing present. No rales. Neurological: Mental Status: She is alert. ASSESSMENT/PLAN: 1. Persistent cough for 3 weeks or longer - ICD9: 786.2, ICD10: R05.3 (primary diagnosis) - XR CHEST 2V FRONTAL/LAT IMPRESSION: No acute radiographic abnormality. Financial Services Professional: PAUL Transcribe Date/Time: May 13 2024 8:01P Dictated by : KAREEM MAYEN MD 2. Wheezing - ICD9: 786.07, ICD10: R06.2 - PREDNISONE 20 MG TABLET - Follow-up with your PCP in 3-5 days if symptoms have not improved or sooner if symptoms worsen - Discussed red flags and need for immediate medical evaluation if any occur. - Discussed supportive care treatment with fluids, rest and analgesia. - Discussed expected course of illness Michela James APRN.SENIOR TRAINER documented in this encounterDayton Children'[facility] Hospital08-09-2024 Telephone encounter Note * Telephone Encounter - Rodri Chauhan MD - 04/25/2024 6:19 PM EDT Noted Took Mounjaro of med list [facility] Miscellaneous Notes* Telephone Encounter - Rodri Chauhan MD - 04/25/2024 6:19 PM EDT Noted Took Mounjaro of med list * Telephone Encounter - Karishma Segundo LPN - 04/25/2024 2:55 PM EDT Called the pharmacy and the Trulicity was filled and picked up 04/24/24. Please remove mounjaro from med list. * Telephone Encounter - Karishma Segundo LPN - 04/25/2024 2:48 PM EDT Electronic PA completed for johnphill. This was denied. Coverage is provided when the member meets all the following: Member has a history of at least 120 days of therapy with THREE preferred medications [ONE of the 120 day trials must be Byetta (5 mcg and 10 mcg), Victoza (18 MG/3 ML PEN)(Brand name is preferred by your plan) or Trulicity (0.75 mg, 1.5mg, 3 mg and 4.5 mg)], which include but are not limited to: Farxiga 5 and 10 mg (Brand name is preferred by your plan), Glimepiride, Glipizide, Invokana 100 mg and 300 mg, Januvia, Jardiance 10 and 25 mg and Metformin IR and ER (generic of Glucophage XR). Member has had an inadequate clinical response (the inability to reach A1C goal (less than 7%) after at least 120 days of current regimen, with use of two or more drugs concomitantly per ADA ([place] Diabetes Association) guidelines and, Member has documented adherence and appropriate dose escalation (must achieve maximum recommended dose or document that maximum recommended dose is not tolerated or is clinically inappropriate) and, Documentation includes a patient specific A1C goal if less than 7% and must include current A1C (within t he last 6 months). [facility] Policy for Medical Necessity as posted on the [facility] website and[place] Un[place] Preferred Drug List criteria were reviewed and per [place] Administrative Code Rule 5160-1-01 (C) and (B), a medically necessary service must include: generally accepted standards of medical practice, be clinically appropriate in administration, treatment and outcome and be thelowest cost alternative to effectively treat the condition. Please contact your provider to assist you with other treatment options that might be covered under your benefit package, or other servicesthat might be available through the community. Payer: [facility] documented in this encounterDayton Children'S Hospital08-09-2024 Telephone encounter Note * Telephone Encounter - Karishma Segundo LPN - 04/25/2024 2:55 PM EDT Called the pharmacy and the Trulicity was filled and picked up 04/24/24. Please remove lazara from med list. [facility]08-09-20[facility] Telephone encounter Note* Telephone Encounter - Karishma Segundo LPN - 04/25/2024 2:48 PM EDT Electronic PA completed for lazara. This was denied. Coverage is provided when the member meets all the following: Member has a history of at least 120 days of therapy with THREE preferred medications [ONE of the 120 day trials must be Byetta (5 mcg and 10 mcg), Victoza (18 MG/3 ML PEN)(Brand name is preferred by your plan) or Trulicity (0.75 mg, 1.5mg, 3 mg and 4.5 mg)], which include but are not limited to: Farxiga 5 and 10 mg (Brand name is preferred by your plan), Glimepiride, Glipizide, Invokana 100 mg and 300 mg, Januvia, Jardiance 10 and 25 mg and Metformin IR and ER (generic of Glucophage XR). Member has had an inadequate clinical response (the inability to reach A1C goal (less than 7%) after at least 120 days of current regimen, with use of two or more drugs concomitantly per ADA ([place] Diabetes [employer]) guidelines and, Member has documented adherence and appropriate dose escalation (must achieve maximum recommended dose or document that maximum recommended dose is not tolerated or is clinically inappropriate) and, Documentation includes a patient specific A1C goal if less than 7% and must include current A1C (within t he last 6 months). [facility] Policy for Medical Necessity as posted on the [facility] website and[place] Un[place] Preferred Drug List criteria were reviewed and per [place] Administrative Code Rule 5160-1-01 (C) and (B), a medically necessary service must include: generally accepted standards of medical practice, be clinically appropriate in administration, treatment and outcome and be thelowest cost alternative to effectively treat the condition. Please contact your provider to assist you with other treatment options that might be covered under your benefit package, or other servicesthat might be available through the community. Payer: [facility]08-[facility] Telephone encounter Note* Telephone Encounter - Vianney Elise RN - 04/25/2024 12:08 PM EDT [facility] calls to request a refill of Dulera. Patient has active prescription at prescription at [facility]. Will await to hear from patient if she has any further needs. Vianney Elise RN [facility]08-09-2024 Miscellaneous Notes* Telephone Encounter - Vianney Elise RN - 04/25/2024 12:08 PM EDT [facility] calls to request a refill of Dulera. Patient has active prescription at prescription at [facility]. Will await to hear from patient if she has any further needs. Vianney Elise RN documented in this encounterDayton Children'S Hospital08-08-2024 History of Present illness Narrative* Rodri Chauhan MD - 04/24/2024 5:04 PM EDT This note was created using Offerum. Subjective Nanci Rodriguez is a 43 year old female. Patient presents with: Recheck Orders: New order for CPAP water chamber heating element is broken. Was using [facility] but not sure they take her insurance. SUBJECTIVE: Nanci Rodriguez is a 43 year old year old lady here today for follow up appointment for review of medical conditions. 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 Changes in diet the past week. Eating smaller portions Cut out pasta Cut out all sorts of sweets Getting protein Needs prescription for CPAP. Water chamber and heating chamber not working. Has had sugars as high as 400s to 700s (was in hospital). Noted low today 60s before coming in today since skipped eating and took meds this AM. Had eaten last at 7PM last night. States pulled what looked like a tapeworm out when had BM a few weeks ago. No known exposure. Has dogs and cats but they have been dewormed. PAST MEDICAL HISTORY 2003: Abnormal glandular Papanicolaou smear of cervix Comment: Abn. Pap smear (cervix) No date: Allergic rhinitis, cause unspecified 12/26/2011: Bipolar I disorder, most recent episode (or current) depressed, moderate No date: CPAP (continuous positive airway pressure) dependence No date: Depressive disorder, not elsewhere classified 12/15/2013: Hip tendonitis 12/11/2016: Left knee pain 03/29/2006: Migraine without aura, without mention of intractable migraine without mention of status migrainosus No date: Mild dysplasia of cervix No date: Obesity 12/11/2016: Osteoarthritis of left knee 11/07/2006: Personal history of pre-term labor 12/15/2013: Right hip pain No date: Unspecified asthma(493.90) Current Outpatient Medications Medication Sig QUEtiapine (SEROQUEL) 25 mg tablet Take 75 mg by mouth daily at bedtime. mometasone-formoterol (DULERA) 50-5 mcg/actuation HFA aerosol inhaler Inhale 1 Puff as instructed two times a day. cyclobenzaprine (FLEXERIL) 10 mg tablet Take 1 tablet by mouth three times a day as needed for muscle spasm. May make drowsy montelukast (SINGULAIR) 10 mg tablet Take 1 tablet by mouth daily at bedtime. metFORMIN (GLUCOPHAGE) 500 mg tablet Take 2 tablets by mouth two times a day with meals. Take one additional 500 mg tab with breakfast or lunch until BS less than 250 glimepiride (AMARYL) 4 mg tablet Take 1 tablet by mouth daily with breakfast. Dose change, take onedaily albuterol HFA (VENTOLIN HFA) 90 mcg/actuation inhaler Inhale 2 Puffs as instructed every 4 hours asneeded. topiramate (TOPAMAX) 100 mg tablet Take 1 tablet by mouth two times a day. lansoprazole (PREVACID) 30 mg capsule Take 1 capsule by mouth daily before breakfast. pramipexole (MIRAPEX) 1.5 mg tablet Take 1 tablet by mouth daily at bedtime. Albuterol Sulfate 1.25 mg/3 mL nebulizer solution Use 1 Ampule via nebulizer every 4 hours as needed for wheezing/shortness of breath. ARIPiprazole (ABILIFY) 5 mg tablet Take 1 tablet by mouth once daily. loratadine (CLARITIN) 10 mg tablet Take 1 tablet by mouth once daily. LORazepam (ATIVAN) 1 mg tablet Take 1 tablet by mouth twice daily. As needed. citalopram (CELEXA) 40 mg tablet Take 40 mg by mouth once daily. [facility] Needs replacement CPAP @ 15 cm of water with humidification. Mask (per patient preference) optional chin strap (if indicated) , filters, tubing, humidifier and lifetime supplies. G47.33 MARIA TERESA on CPAP furosemide (LASIX) 40 mg tablet Take 1 tablet by mouth once daily. lamoTRIgine (LAMICTAL) 200 mg tablet Take 1 tablet by mouth two times a day. diphenhydrAMINE (BENADRYL) 25 mg capsule Take 1 capsule by mouth every 6 hours as needed for itching/rash. [START ON 04/25/2024] ferrous sulfate 325 mg (65 mg iron) tablet Take 1 tablet by mouth every Sunday,Sunday, and Sunday. SUMAtriptan (IMITREX) 25 mg tablet Take 1 tablet by mouth at onset of headache and may repeat in 2 hrs if needed. promethazine (PHENERGAN) 12.5 mg tablet Take 1 tablet by mouth four times a day as needed for nausea/vomiting. lidocaine (LIDODERM) 5 % Apply 1 Patch as directed every 24 hours. Remove after 12 hours. Lancets Test blood sugar(s) once times daily. Dx: Type 2 DM - Controlled E11.9 Insulin: No blood sugar diagnostic (BLOOD GLUCOSE TEST) test strip Test blood sugar(s) one time daily. Dx: Type2 DM - Controlled E11.9 Insulin: No Chlorhexidine Gluconate (PERIDEX) 0.12 % solution Use 15 mL as instructed two times a day. Rinse around mouth for 30 seconds then expectorate silver sulfADIAZINE (SILVADENE) 1 % cream Apply 1 application to affected area once daily. bacitracin 500 unit/gram ointment APPLY TO THE AFFECTED AREA(S) EVERY DAY [facility] monitoring kit USE DIRECTED CPAP Needs lifetime supplies (mask, hoses, headgear, filters, water chamber) G47.33 (already has CPAP) Nebulizer NEBULIZER and Supplies FOR HOME USE. DX: J45.40 No current facility-administered medications for this visit. OBJECTIVE: Review of Systems Objective BP 152/82 Pulse 111 Temp 37.6 C (99.7 F) (Tympanic) Wt (!) 178.9 kg (394 lb 6.5 oz) LMP 11/19/2023 (Approximate) SpO2 97% BMI 68.77 kg/m Last 5 Encounter Wt Readings: Date: Wt: 04/24/2024 178.9 kg (394 lb 6.5 oz) 12/07/2023 169.7 kg (374 lb 3.2 oz) 11/20/2023 173 kg (381 lb 6.4 oz) 09/18/2023 166.9 kg (368 lb) 07/23/2023 163.3 kg (360 lb) No waist measurement recorded Estimated body mass index is 68.77 kg/m as calculated from the following: Height as of 01/20/21: 161.3 cm (5' 3.5). Weight as of this encounter: 178.9 kg (394 lb 6.5 oz). Last 5 Encounter BP Readings: Date: BP: 04/24/2024 152/82 12/07/2023 138/80 11/20/2023 144/84 09/18/2023 118/68 07/23/2023 120/80 Physical Exam Latest Ref Rng 03/06/2023 09/21/2023 04/22/2024 WBC 3.70 - 11.00 k/uL 3.88 4.75 4.12 RBC 3.90 - 5.20 m/uL 4.51 4.27 5.00 Hemoglobin 11.5 - 15.5 g/dL 9.4 (L) 8.7 (L) 10.3 (L) Hematocrit 36.0 - 46.0 % 33.8 (L) 31.9 (L) 36.9 MCV 80.0 - 100.0 fL 74.9 (L) 74.7 (L) 73.8 (L) MCH 26.0 - 34.0 pg 20.8 (L) 20.4 (L) 20.6 (L) MCHC 30.5 - 36.0 g/dL 27.8 (L) 27.3 (L) 27.9 (L) RDW-CV 11.5 - 15.0 % 22.9 (H) 22.1 (H) 22.1 (H) Platelet Count 150 - 400 k/uL 101 (L) 124 (L) 95 (L) MPV 9.9 9.7 -- Neut% % 66.2 71.4 Abs Neut (ANC) 1.45 - 7.50 k/uL 2.57 3.39 Lymph% % 25.8 20.6 Abs Lymph 1.00 - 4.00 k/uL 1.00 0.98 (L) [place]% % 5.9 5.7 Abs [place] <0.87 k/uL 0.23 0.27 Eosin% % 1.3 1.1 Abs Eosin <0.46 k/uL 0.05 0.05 Baso% % 0.5 0.6 Abs Baso <0.11 k/uL <0.03 0.03 Immature Gran % % 0.3 0.6 IMMATURE GRANS (ABS) <0.10 k/uL <0.03 0.03 NRBC /100 WBC 0.0 0.0 Absolute nRBC <0.01 k/uL <0.01 <0.01 <0.01 DTYPE Auto Auto Protein, Total 6.3 - 8.0 g/dL 7.6 7.9 7.6 Albumin 3.9 - 4.9 g/dL 3.6 (L) 4.2 3.8 (L) Calcium 8.5 - 10.2 mg/dL 9.2 9.2 8.5 Bilirubin, Total 0.2 - 1.3 mg/dL 0.4 0.4 0.4 Alkaline Phosphatase 34 - 123 U/L 120 108 156 (H) AST 13 - 35 U/L 39 (H) 44 (H) 34 ALT 7 - 38 U/L 26 25 30 Glucose 74 - 99 mg/dL 221 (H) 143 (H) 268 (H) BUN 7 - 21 mg/dL 9 13 11 Creatinine 0.58 - 0.96 mg/dL 0.61 0.61 0.50 (L) Sodium 136 - 144 mmol/L 139 142 136 Potassium 3.7 - 5.1 mmol/L 4.3 4.6 4.2 Chloride 98 - 107 mmol/L 107 (H) 107 (H) 102 CO2 22 - 30 mmol/L 21 (L) 25 25 Anion Gap 8 - 15 mmol/L 11 10 9 eGFR >=60 mL/min/1.73m 115 115 120 Total Cholesterol, Nonfasting <200 mg/dL 161 Triglycerides, Nonfasting <150 mg/dL 106 HDL Cholesterol, Nonfasting >39 mg/dL 38 (L) LDL Cholesterol, Nonfasting <100 mg/dL 102 (H) Non HDL Cholesterol, Nonfasting <130 mg/dL 123 VLDL Cholesterol, Nonfasting <30 mg/dL 21 Total Chol/HDL Ratio, Nonfasting <5.10 mg/dL 4.24 LDL/HDL Ratio, Nonfasting <2.54 mg/dL 2.68 (H) Iron 41 - 186 ug/dL 18 (L) 17 (L) 22 (L) TIBC 232 - 386 ug/dL 341 412 (H) 385 Transferrin Saturation 15.0 - 57.0 % 5.3 (L) 4.1 (L) 5.7 (L) Creatinine, Ur Random (UCRR) 20.0 - 300.0 mg/dL 95.7 71.4 Albumin, Urine Random mg/L <12.0 12.0 Albumin/Creat Ratio <30 mg/g <13 17 Hemoglobin A1C 4.3 - 5.6 % 9.0 (H) 7.3 (H) 10.7 (H) Estimated Average Glucose mg/dL 212 163 260 Ferritin 14.7 - 205.1 ng/mL 10.3 (L) 7.2 (L) 12.5 (L) Vitamin D 25 Hydroxy 31.0 - 80.0 ng/mL 14.1 (L) Magnesium 1.7 - 2.3 mg/dL 1.8 TSH 0.270 - 4.200 mIU/L 1.300 Legend: (L) Low (H) High Assessment and Plan Encounter Diagnosis ICD-10-CM 1. Uncontrolled type 2 diabetes mellitus with hyperglycemia ([facility]) E11.65 Will add medication (Trulicity or Mounjaro as discussed) for glycemic control and weight loss. R/B/I/A discussed. 2. Class 3 severe obesity due to excess calories with serious comorbidity and body mass index (BMI)of 60.0 to 69.9 in adult ([facility]) E66.01 Z68.44 3. Cellulitis of right lower extremity L03.115 furosemide (LASIX) 40 mg tablet Scattered sores on legs and abdomen, with redness on right calf and abdomen. Difficulty healing dueto obesity and poorly controlled sugars 4. MARIA TERESA on CPAP G47.33 CPAP DISCONTINUED: CPAP Needs to use CPAP to help with weight loss 5. Migraine without aura and without status migrainosus, not intractable G43.009 SUMAtriptan (IMITREX) 25 mg tablet Continue management 6. Bilateral leg edema R60.0 furosemide (LASIX) 40 mg tablet Continue working with wound care center 7. Moderate depressed bipolar I disorder (HCC) F31.32 lamoTRIgine (LAMICTAL) 200 mg tablet overall doing well considering recovering from surgery and son having surgery 8. Tapeworm B71.9 OVA + PARA MICROSCOPIC Per patient report. Check stool. Treat as indicated 9. Lumbago M54.50 acetaminophen-codeine (TYLENOL-COD #3) 300-30 mg per tablet Okay pain med to help with increasing activity. PT or pain management as needed 10. Rib pain R07.81 acetaminophen-codeine (TYLENOL-COD #3) 300-30 mg per tablet Chronic. Treat as needed as for back pain 11. Screening for depression Z13.31 DEPRESSION SCREENING 12. Encounter for screening examination for other mental health and behavioral disorders Z13.39 ANXIETY SCREENING Above issues addressed with patient. Patient involved in shared decision making for management of medical issues. History and medications reviewed. Epic updated as needed Refills and/or prescriptions taken care of and meds adjusted as indicated after reviewed history, exam and labs. Health Maintenance reviewed. Updated record and/or ordered tests as recorded. Encouraged on efforts at healthy diet and regular exercise and adequate sleep. I spent a total of 51 minutes on the date of the service which included rble-ld-coso patient care, completing clinical documentation, obtaining and/or reviewing separately obtained history, performing a medically appropriate examination, counseling and educating the patient/family/caregiver, and ordering medications, tests, or procedures. Rodri Chauhan MD documented [facility] encounterDay[facility] Telephone encounter Note * Telephone Encounter - Ariana Dubon LPN - 04/24/2024 3:54 PM EDT Faxed as requested. [facility]08-[facility]24 Miscellaneous Notes* Telephone Encounter - Ariana Dubon LPN - 04/24/2024 3:54 PM EDT Faxed as requested. * Telephone Encounter - La Mas LPN - 04/22/2024 6:40 PM EDT Labs in process at this time. La Mas LPN * Telephone Encounter - Jessica Helm RN - 04/21/2024 6:08 PM EDT Patient requests lab results be faxed to Dr. Sebas Lord @ [facility]. She is having her labs drawn tomorrow. Jessica Helm RN documented in this encounterDayton [facility]08-06-2024 Telephone encounter Note * Telephone Encounter - La Mas LPN - 04/22/2024 6:40 PM EDT Labs in process at this time. La Mas LPN [facility]08-[facility] Telephone encounter Note* Telephone Encounter - Nilda Albert - 04/22/2024 9:18 AM EDT Prescription Refill Information The patient has been identified by name and date of : Yes Caregiver verified no other encounters exist for this prescription request: Yes Caregiver confirmed with patient/requestor that no other refills are due, in the near future, with this provider at this time: Yes The last office visit in the department: 12-07-23 Does the patient have a future office visit with this provider/department: Yes Requested Prescriptions Pending Prescriptions Disp Refills mometasone-formoterol (DULERA) 50-5 mcg/actuation HFA aerosol inhaler 13 g 2 Sig: Inhale 1 Puff as instructed two times a day. Nilda Rodrigues April 22, 2024 9:18 AM [facility]08-06-2024 Miscellaneous Notes* Telephone Encounter - Nilda Albert - 04/22/2024 9:18 AM EDT Prescription Refill Information The patient has been identified by name and date of : Yes Caregiver verified no other encounters exist for this prescription request: Yes Caregiver confirmed with patient/requestor that no other refills are due, in the near future, with this provider at this time: Yes The last office visit in the department: 12-07-23 Does the patient have a future office visit with this provider/department: Yes Requested Prescriptions Pending Prescriptions Disp Refills mometasone-formoterol (DULERA) 50-5 mcg/actuation HFA aerosol inhaler 13 g 2 Sig: Inhale 1 Puff as instructed two times a day. Nilda Rodrigues April 22, 2024 9:18 AM documented in this encounterDayton [facility]08-05-2024 Telephone encounter Note * Telephone Encounter - Jessica Helm RN - 04/21/2024 6:08 PM EDT Patient requests lab results be faxed to Dr. Sebas Lord @ [facility]. She is having her labs drawn tomorrow. Jessica Helm RN [facility]07-29-[facility]24 Telephone encounter Note* Telephone Encounter - Nuzhat Montes RN - 04/14/2024 8:45 AM EDT Patient notified of results and provider's instructions. Patient verbalizes understanding. Patient scheduled for labs on 04/22/2024 and PCP on 04/24/2024. Nuzhat Montes RN [facility]07-29-[facility]24 Miscellaneous Notes* Telephone Encounter - Nuzhat Montes RN - 04/14/2024 8:45 AM EDT Patient notified of results and provider's instructions. Patient verbalizes understanding. Patient scheduled for labs on 04/22/2024 and PCP on 04/24/2024. Nuzhat Montes RN * Telephone Encounter - Luis Enrique Wiggins RN - 04/14/2024 8:35 AM EDT Left vm for patient to return call to nurse for provider message. * Telephone Encounter - Rodri Chauhan MD - 04/14/2024 12:04 AM EDT Would not increase dose of Mirapex but decrease the dose since higher dose might increase problems with RLS instead of making it better. If lowering dose not improve RLS, should either come in for appointment to discussed options for meds or can refer to neurology for further evaluation and treatment. Can cut pill in half so 1.5 down to 0.75 mg daily. If prefers lower dose pill instead of splitting pill, let me know. Also, her last labs showed anemia and low ferritin--low ferritin would make RLS worse. Update labs so can determine if needs iron infusion if taking iron supplement and not effective. Also due for follow up on DM. Assuming no one else is doing follow up labs from December (at [facility] [id number] >[id number]), I ordered labs to do anytime now. Due for lipids and UACR too. Needs appointment for prescribing controlled medication. Offer appointment sooner than June appointment so can go over management of RLS, DM, pain, etc. Recommend get labs prior so can discuss. * Telephone Encounter - Jessica Mason LPN - 04/10/2024 4:22 PM EDT Patient calling to check status of her request. * Telephone Encounter - [place] Pss, Qian - 04/08/2024 12:23 PM EDT Nanci is calling Rodri Chauhan MD today with concern regarding medication question, she is asking if this medication can be increased due to it is no longer effective: pramipexole (MIRAPEX) 1.5 mg tablet. In addition, she is requesting medication below for hip and back pain; no longer on current list: Disp Refills Start End codeine 30 mg tablet 21 tablet 0 09/05/2023 09/12/2023 Sig: Take 1 tablet by mouth every 8 hours as needed for pain for up to 7 days. To replace prescription for Tylenol #3 which is not available. Patient may take Tylenol 325 mg when takes codeine Sent to pharmacy as: codeine 30 mg tablet Class: Normal Earliest Fill Date: 09/05/2023 Route: ORAL Order: [id number] E-Prescribing Status: Receipt confirmed by pharmacy (09/05/2023 1:12 AM EST) Patient is using [facility]. Please call patient regarding both questions/requests. Patient has been identified by name and birthdate. Duration of symptoms: N/A Person calling: self Call patient at: on cell [phone] (home) [phone] (cell) Was an appointment scheduled: No Closing statement: Symptom Call: Thank you for calling [facility], your call is very important. A nurse will call in approximately 2-4 hours during business hours. If this is an emergency, please contact 911. Qian Rodrigues documented in this encounterDayton Children'[facility]07-29-2024 Telephone encounter Note * Telephone Encounter - Luis Enrique Wiggins, TAZ - 04/14/2024 8:35 AM EDT Left vm for patient to return call to nurse for provider message. [facility] Telephone encounter Note* Telephone Encounter - Rodri Chauhan MD - 04/14/2024 12:04 AM EDT Would not increase dose of Mirapex but decrease the dose since higher dose might increase problems with RLS instead of making it better. If lowering dose not improve RLS, should either come in for appointment to discussed options for meds or can refer to neurology for further evaluation and treatment. Can cut pill in half so 1.5 down to 0.75 mg daily. If prefers lower dose pill instead of splitting pill, let me know. Also, her last labs showed anemia and low ferritin--low ferritin would make RLS worse. Update labs so can determine if needs iron infusion if taking iron supplement and not effective. Also due for follow up on DM. Assuming no one else is doing follow up labs from December (at [facility] [id number] >8), I ordered labs to do anytime now. Due for lipids and UACR too. Needs appointment for prescribing controlled medication. Offer appointment sooner than June appointment so can go over management of RLS, DM, pain, etc. Recommend get labs prior so can discuss. [facility]07-28-[facility] Telephone encounter Note* Telephone Encounter - Rodri Chauhan MD - 04/13/2024 11:32 PM EDT The following approved medication requests have been transmitted electronically. Requested Prescriptions Signed Prescriptions Disp Refills cyclobenzaprine (FLEXERIL) 10 mg tablet 30 tablet 2 Sig: Take 1 tablet by mouth three times a day as needed for muscle spasm. May make drowsy Authorizing Provider: RODRI CHAUHAN furosemide (LASIX) 20 mg tablet 60 tablet 1 Sig: Take 1-2 tablets by mouth once daily. Authorizing Provider: RODRI CHAUHAN promethazine (PHENERGAN) 12.5 mg tablet 120 tablet 1 Sig: Take 1 tablet by mouth four times a day as needed for nausea/vomiting. Authorizing Provider: RODRI CHAUHAN MD [facility]07-28-2024 Miscellaneous Notes* Telephone Encounter - Rodri Chauhan MD - 04/13/2024 11:32 PM EDT The following approved medication requests have been transmitted electronically. Requested Prescriptions Signed Prescriptions Disp Refills cyclobenzaprine (FLEXERIL) 10 mg tablet 30 tablet 2 Sig: Take 1 tablet by mouth three times a day as needed for muscle spasm. May make drowsy Authorizing Provider: RODRI CHAUHAN furosemide (LASIX) 20 mg tablet 60 tablet 1 Sig: Take 1-2 tablets by mouth once daily. Authorizing Provider: RODRI CHAUHAN promethazine (PHENERGAN) 12.5 mg tablet 120 tablet 1 Sig: Take 1 tablet by mouth four times a day as needed for nausea/vomiting. Authorizing Provider: RODRI CHAUHAN MD * Telephone Encounter - Jo Ann Watkins LPN - 04/11/2024 3:54 PM EDT Patient has been identified by name and date of : Pharmacy phones for refill(s): Requested Prescriptions Pending Prescriptions Disp Refills cyclobenzaprine (FLEXERIL) 10 mg tablet 30 tablet 2 Sig: Take 1 tablet by mouth three times a day as needed for muscle spasm. May make drowsy furosemide (LASIX) 20 mg tablet 60 tablet 1 Sig: Take 1-2 tablets by mouth once daily. promethazine (PHENERGAN) 12.5 mg tablet 120 tablet 1 Sig: Take 1 tablet by mouth four times a day as needed for nausea/vomiting. Date of last office visit in primary care: 03/16/2020 Date of next office visit in primary care: 06/23/24 Please advise. Thank you. Jo Ann Watkins LPN. documented in this encounterDayton [facility]07-26-2024 Telephone encounter Note * Telephone Encounter - Jo Ann Watkins LPN - 04/11/2024 3:54 PM EDT Patient has been identified by name and date of : Pharmacy phones for refill(s): Requested Prescriptions Pending Prescriptions Disp Refills cyclobenzaprine (FLEXERIL) 10 mg tablet 30 tablet 2 Sig: Take 1 tablet by mouth three times a day as needed for muscle spasm. May make drowsy furosemide (LASIX) 20 mg tablet 60 tablet 1 Sig: Take 1-2 tablets by mouth once daily. promethazine (PHENERGAN) 12.5 mg tablet 120 tablet 1 Sig: Take 1 tablet by mouth four times a day as needed for nausea/vomiting. Date of last office visit in primary care: 03/16/2020 Date of next office visit in primary care: 06/23/24 Please advise. Thank you. Jo Ann Watkins LPN. [facility]07-25-[facility]24 Telephone encounter Note* Telephone Encounter - Jessica Mason LPN - 04/10/2024 4:22 PM EDT Patient calling to check status of her request. [facility]07-[facility] Telephone encounter Note* Telephone Encounter - Qian Neely - 04/08/2024 12:29 PM EDT Prescription Refill Information The patient has been identified by name and date of : Yes Caregiver verified no other encounters exist for this prescription request: Yes Caregiver confirmed with patient/requestor that no other refills are due, in the near future, with this provider at this time: Yes The last office visit in the department: Does the patient have a future office visit with this provider/department: Yes 06/23/24 Requested Prescriptions Pending Prescriptions Disp Refills cyclobenzaprine (FLEXERIL) 10 mg tablet 30 tablet 2 Sig: Take 1 tablet by mouth three times a day as needed for muscle spasm. May make drowsy Per Patient, using [facility]. Qian Rodrigues April 08, 2024 12:29 PM [facility]07-23-[facility]24 Miscellaneous Notes* Telephone Encounter - [place] Qian Rodrigues - 04/08/2024 12:29 PM EDT Prescription Refill Information The patient has been identified by name and date of : Yes Caregiver verified no other encounters exist for this prescription request: Yes Caregiver confirmed with patient/requestor that no other refills are due, in the near future, with this provider at this time: Yes The last office visit in the department: Does the patient have a future office visit with this provider/department: Yes 06/23/24 Requested Prescriptions Pending Prescriptions Disp Refills cyclobenzaprine (FLEXERIL) 10 mg tablet 30 tablet 2 Sig: Take 1 tablet by mouth three times a day as needed for muscle spasm. May make drowsy Per Patient, using [facility]. Qian Paradaing [facility] April 08, 2024 12:29 PM documented in this encounterDayton Children'S Hospital07-23-2024 Telephone encounter Note * Telephone Encounter - [place] Qian Rodrigues - 04/08/2024 12:23 PM EDT Nanci is calling Rodri Chauhan MD today with concern regarding medication question, she is asking if this medication can be increased due to it is no longer effective: pramipexole (MIRAPEX) 1.5 mg tablet. In addition, she is requesting medication below for hip and back pain; no longer on current list: Disp Refills Start End codeine 30 mg tablet 21 tablet 0 09/05/2023 09/12/2023 Sig: Take 1 tablet by mouth every 8 hours as needed for pain for up to 7 days. To replace prescription for Tylenol #3 which is not available. Patient may take Tylenol 325 mg when takes codeine Sent to pharmacy as: codeine 30 mg tablet Class: Normal Earliest Fill Date: 09/05/2023 Route: ORAL Order: [id number] E-Prescribing Status: Receipt confirmed by pharmacy (09/05/2023 1:12 AM EST) Patient is using [facility]. Please call patient regarding both questions/requests. Patient has been identified by name and birthdate. Duration of symptoms: N/A Person calling: self Call patient at: on cell [phone] (home) [phone] (cell) Was an appointment scheduled: No Closing statement: Symptom Call: Thank you for calling [facility], your call is very important. A nurse will call in approximately 2-4 hours during business hours. If this is an emergency, please contact 911Daniel Rodrigues [facility]07-03-2024 Telephone encounter Note* Telephone Encounter - Jessica Helm RN - 03/19/2024 5:12 PM EDT Patient calling to report she had an [facility] and it was recommended she follow up with PCP. She says she has not history of elevated BP and does not take any BP medications. She states she has no other symptoms. She does not have a home BP monitor. Reviewed triage protocol guidelines with patient. Disposition:See PCP within 3 days. Appointment scheduled 03/24/24 with Zunilda Jaramillo S[employer]ER BACK TENDER She will go to ER if she develops new symptoms of blurred vision, dizziness, SOB, chest pain, weakness. Jessica Helm RN Reason for Disposition Systolic BP >= 160 OR Diastolic >= 100 Answer Assessment - Initial Assessment Questions 1. BLOOD PRESSURE: [facility] Center checked patient's BP First reading 200/92 Recheck 156/82 2. ONSET: 3 hours ago 3. HOW: Taken @ [facility] with automatic BP monitor 4. HISTORY: No history of high blood pressure 5. MEDICINES: Not taking medication for blood pressure 6. OTHER SYMPTOMS:. Denies blurred vision, chest pain, difficulty breathing, headache, dizziness, weakness 7. : NO Protocols used: Blood Pressure - [id number] Jessica Helm RN Reason for Disposition Systolic BP >= 160 OR Diastolic >= 100 Answer Assessment - Initial Assessment Questions 1. BLOOD PRESSURE: Wound Center checked patient's BP First reading 200/92 Recheck 156/82 2. ONSET: 3 hours ago 3. HOW: Taken @ [facility] with automatic BP monitor 4. HISTORY: No history of high blood pressure 5. MEDICINES: Not taking medication for blood pressure 6. OTHER SYMPTOMS:. Denies blurred vision, chest pain, difficulty breathing, headache, dizziness, weakness 7. : NO Protocols used: Blood Pressure - [id number] [facility]07-03-2024 Miscellaneous Notes* Telephone Encounter - Jessica Helm RN - 03/19/2024 5:12 PM EDT Patient calling to report she had an elevated BP today at [facility] and it was recommended she follow up with PCP. She says she has not history of elevated BP and does not take any BP medications. She states she has no other symptoms. She does not have a home BP monitor. Reviewed triage protocol guidelines with patient. Disposition:See PCP within 3 days. Appointment scheduled 03/24/24 with Zunilda Jaramillo SINGER BACK TENDER She will go to ER if she develops new symptoms of blurred vision, dizziness, SOB, chest pain, weakness. Jessica Helm RN Reason for Disposition Systolic BP >= 160 OR Diastolic >= 100 Answer Assessment - Initial Assessment Questions 1. BLOOD PRESSURE: Wound Center checked patient's BP First reading 200/92 Recheck 156/82 2. ONSET: 3 hours ago 3. HOW: Taken @ [facility] with automatic BP monitor 4. HISTORY: No history of high blood pressure 5. MEDICINES: Not taking medication for blood pressure 6. OTHER SYMPTOMS:. Denies blurred vision, chest pain, difficulty breathing, headache, dizziness, weakness 7. : NO Protocols used: Blood Pressure - [id number] Jessica Helm RN Reason for Disposition Systolic BP >= 160 OR Diastolic >= 100 Answer Assessment - Initial Assessment Questions 1. BLOOD PRESSURE: W[facility] Center checked patient's BP First reading 200/92 Recheck 156/82 2. ONSET: 3 hours ago 3. HOW: Taken @ [facility] with automatic BP monitor 4. HISTORY: No history of high blood pressure 5. MEDICINES: Not taking medication for blood pressure 6. OTHER SYMPTOMS:. Denies blurred vision, chest pain, difficulty breathing, headache, dizziness, weakness 7. : NO Protocols used: Blood Pressure - [id number] documented in this encounterDayton [facility] Telephone encounter Note * Telephone Encounter - Trey Vera MA - 03/17/2024 11:03 AM EDT Pt notified, verbalized understanding. [facility]07-01-2024 Miscellaneous Notes* Telephone Encounter - Trey Vera MA - 03/17/2024 11:03 AM EDT Pt notified, verbalized understanding. * Telephone Encounter - Rodri Chauhan MD - 03/15/2024 2:25 PM EDT The following approved medication requests have been transmitted electronically. Requested Prescriptions Signed Prescriptions Disp Refills lidocaine (LIDODERM) 5 % 30 Patch 0 Sig: Apply 1 Patch as directed every 24 hours. Remove after 12 hours. Authorizing Provider: RODRI CHAUHAN MD Follow up as needed * Telephone Encounter - Marielena Nogueira RN - 03/15/2024 10:57 AM EDT Patient calling in and requesting medication as pended. Pt was recently at [facility] ER for cough and right lower right rib pain. Pt states she was advised to follow up with her PCP only if sx's did not improve. Patient asking if PCP would be agreeable to ordering her lidocaine patches to use on her back? Reports she used these years ago and they were helpful. Order pended for consideration. Please call patient with update. [phone] Thank you. documented in this encounterDayton [facility]06-[facility] Telephone encounter Note * Telephone Encounter - Rodri Chauhan MD - 03/15/2024 2:25 PM EDT The following approved medication requests have been transmitted electronically. Requested Prescriptions Signed Prescriptions Disp Refills lidocaine (LIDODERM) 5 % 30 Patch 0 Sig: Apply 1 Patch as directed every 24 hours. Remove after 12 hours. Authorizing Provider: RODRI CHAUHAN MD Follow up as needed [facility]06-29-2024 Telephone encounter Note* Telephone Encounter - Marielena Nogueira RN - 03/15/2024 10:57 AM EDT Patient calling in and requesting medication as pended. Pt was recently at [facility] ER for cough and right lower right rib pain. Pt states she was advised to follow up with her PCP only if sx's did not improve. Patient asking if PCP would be agreeable to ordering her lidocaine patches to use on her back? Reports she used these years ago and they were helpful. Order pended for consideration. Please call patient with update. [phone] Thank you. [facility]06-24-2024 Telephone encounter Note* Telephone Encounter - Nuzhat Montes RN - 03/10/2024 8:17 AM EDT The patient has been identified by name and date of : Y Caregiver verified no other encounters exist for this prescription request: Yes Caregiver confirmed with patient/requestor that no other refills are due, in the near future, with this provider at this time: Yes The last office visit in the department: 12/07/2023 Does the patient have a future office visit with this provider/department: Yes 06/23/2024 Requested Prescriptions Pending Prescriptions Disp Refills cyclobenzaprine (FLEXERIL) 10 mg tablet 30 tablet 2 Sig: Take 1 tablet by mouth three times a day as needed for muscle spasm. May make drowsy Nuzhat Montes RN March 10, 2024 8:17 AM [facility]06-24-2024 Miscellaneous Notes* Telephone Encounter - Nuzhat Montes RN - 03/10/2024 8:17 AM EDT The patient has been identified by name and date of : Y Caregiver verified no other encounters exist for this prescription request: Yes Caregiver confirmed with patient/requestor that no other refills are due, in the near future, with this provider at this time: Yes The last office visit in the department: 12/07/2023 Does the patient have a future office visit with this provider/department: Yes 06/23/2024 Requested Prescriptions Pending Prescriptions Disp Refills cyclobenzaprine (FLEXERIL) 10 mg tablet 30 tablet 2 Sig: Take 1 tablet by mouth three times a day as needed for muscle spasm. May make drowsy Nuzhat Montes RN March 10, 2024 8:17 AM documented in this encounterDayton [facility]06-18-2024 Telephone encounter Note * Telephone Encounter - Helen Sullivan RN - 03/04/2024 4:49 PM EDT Called and spoke with pt. Asked if she has been seen for this cough. Pt states she has not been seen for this cough. Instructed pt that she would need to be seen for her cough to get a prescription. [facility]. Pt verbalizes understanding. [facility]06-18-2024 Miscellaneous Notes* Telephone Encounter - Helen Sullivan RN - 03/04/2024 4:49 PM EDT Called and spoke with pt. Asked if she has been seen for this cough. Pt states she has not been seen for this cough. Instructed pt that she would need to be seen for her cough to get a prescription. Pt [facility]. Pt verbalizes understanding. * Telephone Encounter - Jo Ann Robert - 03/04/2024 2:09 PM EDT Nanci is calling Rdori Chauhan MD today with concern regarding Cough; medication request Patient has been identified by name and birthdate. Duration of symptoms: days Person calling: self Call patient at: at home [phone] (home) [phone] (cell) Was an appointment scheduled: No Patient said she has a cough that is not going away. Wants to know if tessalon perles can be sent to [facility] in [place]. Closing statement: Symptom Call: Thank you for calling [facility], your call is very important. A nurse will call in approximately 2-4 hours during business hours. If this is an emergency, please contact 911. Jo Ann Rodrigues documented in this encounterDayton [facility]06-18-2024 Telephone encounter Note * Telephone Encounter - Jo Ann Robert - 03/04/2024 2:09 PM EDT Nanci is calling Rodri Chauhan MD today with concern regarding Cough; medication request Patient has been identified by name and birthdate. Duration of symptoms: days Person calling: self Call patient at: at home [phone] (home) [phone] (cell) Was an appointment scheduled: No Patient said she has a cough that is not going away. Wants to know if tessalon perles can be sent to [facility] in [place]. Closing statement: Symptom Call: Thank you for calling [facility], your call is very important. A nurse will call in approximately 2-4 hours during business hours. If this is an emergency, please contact 911. Jo Ann Rodrigues [facility]05-29-2024 Telephone encounter Note* Telephone Encounter - Nuzhat Montes RN - 02/13/2024 11:34 AM EDT Leola from [facility] calls and states that patient needs refill on medication. Leola states that she had called and spoke with [facility] and they had no refills of medications on file for patient. Patient has been identified by name and date of : Pharmacy phones for refill(s): Requested Prescriptions Pending Prescriptions Disp Refills cyclobenzaprine (FLEXERIL) 10 mg tablet 30 tablet 2 Sig: Take 1 tablet by mouth three times a day as needed for muscle spasm. May make drowsy furosemide (LASIX) 20 mg tablet 60 tablet 1 Sig: Take 1-2 tablets by mouth once daily. promethazine (PHENERGAN) 12.5 mg tablet 120 tablet 1 Sig: Take 1 tablet by mouth four times a day as needed for nausea/vomiting. Date of last office visit in primary care: 12/07/2023 Date of next office visit in primary care: 06/23/2024 Please advise. Thank you. Nuzhat Montes RN. [facility]05-29-2024 Miscellaneous Notes* Telephone Encounter - Nuzhat Montes RN - 02/13/2024 11:34 AM EDT Leola from [facility] calls and states that patient needs refill on medication. Leola states that she had called and spoke with [facility] and they had no refills of medications on file for patient. Patient has been identified by name and date of : Pharmacy phones for refill(s): Requested Prescriptions Pending Prescriptions Disp Refills cyclobenzaprine (FLEXERIL) 10 mg tablet 30 tablet 2 Sig: Take 1 tablet by mouth three times a day as needed for muscle spasm. May make drowsy furosemide (LASIX) 20 mg tablet 60 tablet 1 Sig: Take 1-2 tablets by mouth once daily. promethazine (PHENERGAN) 12.5 mg tablet 120 tablet 1 Sig: Take 1 tablet by mouth four times a day as needed for nausea/vomiting. Date of last office visit in primary care: 12/07/2023 Date of next office visit in primary care: 06/23/2024 Please advise. Thank you. Nuzhat Montes RN. documented in this encounterDayton Children'[facility] Hospital05-17-2024 Miscellaneous Notes* Telephone Encounter - Vianney Elise RN - 02/01/2024 4:36 PM EDT Opened in Error. [facility] calling to request refills on medications sent to [facility] is patient's preferred pharmacy. No further action needed at this time. Will wait to here from patient if wants any changes. Vianney Elise RN documented in this encounterDayton [facility] Hospital05-17-2024 Telephone encounter Note * Telephone Encounter - Vianney Elise RN - 02/01/2024 4:36 PM EDT Opened in Error. [facility] calling to request refills on medications sent to [facility] is patient's preferred [facility]. No further action needed at this time. Will wait to here from patient if wants any changes. Vianney Elise RN [facility]05-10-2024 Telephone encounter Note* Telephone Encounter - Rodri Chauhan MD - 01/25/2024 7:58 PM EDT Okayed [facility]05-10-2024 Miscellaneous Notes* Telephone Encounter - Rodri Chauhan MD - 01/25/2024 7:58 PM EDT Okayed * Telephone Encounter - Helen Sullivan RN - 01/25/2024 4:47 PM EDT Patient has been identified by name and date of : Pharmacy phones for refill(s): Requested Prescriptions Pending Prescriptions Disp Refills cyclobenzaprine (FLEXERIL) 10 mg tablet 30 tablet 2 Sig: Take 1 tablet by mouth three times a day as needed for muscle spasm. May make drowsy furosemide (LASIX) 20 mg tablet 60 tablet 1 Sig: Take 1-2 tablets by mouth once daily. promethazine (PHENERGAN) 12.5 mg tablet 120 tablet 1 Sig: Take 1 tablet by mouth four times a day as needed for nausea/vomiting. Date of last office visit in primary care: 12/07/2023 Date of next office visit in primary care: 06/23/2024 Confirmed with [facility] that pt has gone through all of her refills on the prn meds. Please advise. Thank you. Helen Sullivan RN. documented in this encounterDayton [facility]05-10-2024 Telephone encounter Note * Telephone Encounter - Helen Sullivan RN - 01/25/2024 4:47 PM EDT Patient has been identified by name and date of : Pharmacy phones for refill(s): Requested Prescriptions Pending Prescriptions Disp Refills cyclobenzaprine (FLEXERIL) 10 mg tablet 30 tablet 2 Sig: Take 1 tablet by mouth three times a day as needed for muscle spasm. May make drowsy furosemide (LASIX) 20 mg tablet 60 tablet 1 Sig: Take 1-2 tablets by mouth once daily. promethazine (PHENERGAN) 12.5 mg tablet 120 tablet 1 Sig: Take 1 tablet by mouth four times a day as needed for nausea/vomiting. Date of last office visit in primary care: 12/07/2023 Date of next office visit in primary care: 06/23/2024 Confirmed with Negro that pt has gone through all of her refills on the prn meds. Please advise. Thank you. Helen Sullivan RN. [facility]04-24-2024 Progress note Author [facility] January 09, 2024 4:48pm Note Date/Time January 09, 2024 4:4 8pm [facility] [address] Progress Note - Wound Care 01/09/24 1645 MR#: [id number] Acct: [id number] Name: NANCI RODRIGUEZ Rep #:[id number] : 1980 43 From: [facility] PCP: Dr. Rodri Chauhan MD Status:RE G RCR Location: History of Present Illness Date of Service: 01/09/24 Chief Complaint: Ulceration right posterior leg History of Wound: Ulceration right posterior leg Progress of Wound: Denies constitutional symptoms. Denies pain. Some increased swelling redness to right posterior leg wound. Patient was here for nursing visit due to some worsening of wound decision was made to see me today. Subjective Subjective Ms. Rodriguez is a 43-year-old diabetic female resenting to the wound care center today for follow-up evaluation to the full-thickness ulceration to the posterioraspect of the right calf. Patient has been compliant with her wound VAC. She admits to controlled blood sugar. Patient has been following up for nursing visits for cancer exchange. Patient states she does have some pain to the rightleg secondary to maceration from the wound VAC. Patient does continue to smoke. Denies trauma. Denies constitutional symptoms. Other complaints at this time. Objective Data Objective Data Vital Signs: Vital Signs Temp Pulse Resp BP O2 Del Method 98 F 113 H 18 143/85 H Room Air 01/04/24 10:26 01/09/24 15:26 01/09/24 15:26 01/09/24 15:26 01/09/24 15:26 Oxygen Delivery Method Room Air Weight: 160.223 kg Body Mass Index (BMI) 62.5 Lab / Micro Data 01/02/24 16:22 01/02/24 16:22 Micro: Microbiology 01/02/24 15:32 Tissue Ulcer - Leg Gram Stain - Final 01/02/24 15:32 Tissue Ulcer - Leg Wound Culture - Final Enterobacter cloacae complex 01/02/24 15:32 Tissue Ulcer - Leg Anaerobic Culture - Final Anaerobic cocci Physical Exam Narrative Vascular: DP and PT pulses palpable. CFT is brisk. Nonpitting edema appreciated to right lower extremity. No erythema or proximal streaking is appreciated. Neurological: Light touch intact. Patient response to painful stimuli. Dermatological: Evidence of surgical wound dehiscence secondary to nonweightbearing and lack of medical compliance. Full-thickness ulceration measures 2.8 x 1.6 x 0.5 cm. Wound base is granular nature with sanguinous drainage after debridement. No evidence of erythema or proximal streaking. Cannot rule out infection at this time. Excisional debridement down to and including subcutaneous tissue with a number 3mm dermal curette to the right posterior calf. Predebridement measurement was 2.7 x 1.4 x 0.4 cm. Postdebridement measurement is 2.8 x 1.6 x 0.5 cm. Musculoskeletal: No pain with calf compression. Mild pain to palpation full- thickness ulceration right calf. Debridement Note Debridement Note Debridement Free Text: Excisional debridement down to and including subcutaneoustissue with a number 3 mm dermal curette to the right posterior calf. Predebridement measurement was 2.7 x 1.4 x 0.4 cm. Postdebridement measurement is 2.8 x 1.6 x 0.5 cm. Post-Debridement Measurements and Additional Note: Post-Debridement Measurements/Treatment - Nurse 1 - General Ulcer Assessment Start: 12/19/23 15:17 Freq: Status: Active Protocol: PANCHITO.SAY Activity Type Activity Date Activity User E-sign Co-sign Detail Recorded Client Recorded Date Recorded By Document 12/19/23 15:17 DL Desktop 12/19/23 15:24 DL Document 12/25/23 11:01 KW Desktop 12/25/23 11:20 KW Document 12/28/23 11:34 KW [id number] 12/28/23 12:18 KW Document 12/31/23 09:52 KW Desktop 12/31/23 09:54 KW Document 01/02/24 15:21 CP Desktop 01/02/24 15:26 CP Document 01/07/24 11:28 BMF Desktop 01/07/24 11:30 BMF Document 01/09/24 15:26 KW Desktop 01/09/24 15:27 KW 12/19/23 12/25/23 12/28/23 15:17 11:01 11:34 - Today's Visit Information Type of service Follow-up Visit Follow-up Visit Nurse-only (Physician/SENIOR TRAINER (Physician/SENIOR TRAINER Visit ) ) Arrival Mode Ambulatory, Ambulatory Ambulatory Walker Arrival Mode (Other) knee walker Transfer Assistance None Patient Identification Verified (Name & Yes Yes Yes ) Patient Requires Transmission-Based No Precautions Height and Weight Body Mass Index (BMI) 62.5 62.5 62.5 BMI Classification Obese Obese Obese Vital Signs Temperature (97.8 F-99.1 F) 97.8 F 97.5 F L 95.9 F L Temperature Source Temporal Temporal Temporal Pulse Rate (60-100) 121 H 114 H 114 H Pulse Location Monitor Monitor Monitor Respiratory Rate (12-18) 22 H 18 18 Respiratory rate source Observation Observation Observation Oxygen Delivery Method Room Air Room Air Blood Pressure (90/60-120/80) 152/92 H 156/85 H 200/89 H Blood Pressure Mean (mm Hg) 112 108 126 Source Monitor Monitor Monitor Position Sitting Semi-Fowlers Blood Pressure Location Left Forearm Left Arm History Since Last Visit- (Skip if this is Patient's initial visit) Have you changed medications since your No No No last visit? Any new allergies or adverse reactions No No No Had a fall/change in ADL's that may No No No increase risk of falls Signs or symptoms of abuse and/or No No No neglect since last visit Have you been in the hospital since your No No No last visit? Has dressing in place as prescribed Yes Yes Yes Has compression in place as prescribed Yes Yes Yes Has offloadiing in place as prescribed Yes N/A N/A Experienced any changes in pain level or No No No management Left Footwear Regular Shoe Regular Shoe Regular Shoe Right Footwear Regular Shoe Regular Shoe Regular Shoe Pain Scale: 0-10 Numeric Is Patient Pain Free? Yes Yes Yes Rt post leg -Description Burning, Pressure 12/31/23 01/02/24 01/07/24 09:52 15:21 11:28 WC - Today's Visit Information Type of service Nurse-only Follow-up Visit Nurse-only Visit (Physician/SENIOR TRAINER Visit ) Arrival Mode Ambulatory Ambulatory Ambulatory Arrival Mode (Other) Transfer Assistance None Patient Identification Verified (Name & Yes Yes Yes ) Patient Requires Transmission-Based No No Precautions Height and Weight Body Mass Index (BMI) 62.5 62.5 62.5 BMI Classification Obese Obese Obese Vital Signs Temperature (97.8 F-99.1 F) 96.9 F L 97.7 F L Temperature Source Temporal Temporal Pulse Rate (60-100) 102 H 123 H 101 H Pulse Location Monitor Monitor Monitor Respiratory Rate (12-18) 18 18 18 Respiratory rate source Observation Observation Observation Oxygen Delivery Method Room Air Room Air Room Air Blood Pressure (90/60-120/80) 144/85 H 165/108 H 135/88 H Blood Pressure Mean (mm Hg) 104 127 103 Source Monitor Monitor Monitor Position Semi-Fowlers Sitting Sitting Blood Pressure Location Left Arm Left Forearm Left Forearm History Since Last Visit- (Skip if this is Patient's initial visit) Have you changed medications since your No No No last visit? Any new allergies or adverse reactions No No No Had a fall/change in ADL's that may No No No increase risk of falls Signs or symptoms of abuse and/or No No No neglect since last visit Have you been in the hospital since your No No No last visit? Has dressing in place as prescribed Yes Yes Yes Has compression in place as prescribed Yes Yes Yes Has offloadiing in place as prescribed N/A N/A N/A Experienced any changes in pain level or No No No management Left Footwear Regular Shoe Slipper Right Footwear Regular Shoe Slipper Pain Scale: 0-10 Numeric Is Patient Pain Free? Yes Yes Yes Rt post leg -Description 01/09/24 15:26 WC - Today's Visit Information Type of service Follow-up Visit (Physician/SENIOR TRAINER ) Arrival Mode Ambulatory Arrival Mode (Other) Transfer Assistance Patient Identification Verified (Name & Yes ) Patient Requires Transmission-Based Precautions Height and Weight Body Mass Index (BMI) 62.5 BMI Classification Obese Vital Signs Temperature (97.8 F-99.1 F) Temperature Source Pulse Rate (60-100) 113 H Pulse Location Monitor Respiratory Rate (12-18) 18 Respiratory rate source Observation Oxygen Delivery Method Room Air Blood Pressure (90/60-120/80) 143/85 H Blood Pressure Mean (mm Hg) 104 Source Monitor Position Semi-Fowlers Blood Pressure Location Left Arm History Since Last Visit- (Skip if this is Patient's initial visit) Have you changed medications since your No last visit? Any new allergies or adverse reactions No Had a fall/change in ADL's that may No increase risk of falls Signs or symptoms of abuse and/or No neglect since last visit Have you been in the hospital since your No last visit? Has dressing in place as prescribed Yes Has compression in place as prescribed Yes Has offloadiing in place as prescribed N/A Experienced any changes in pain level or No management Left Footwear Regular Shoe Right Footwear Regular Shoe Pain Scale: 0-10 Numeric Is Patient Pain Free? Yes Rt post leg -Description WC - Nurse 1 - General Ulcer Measurement Start: 12/19/23 15:17 Freq: Status: Active Protocol: Activity Type Activity Date Activity User E-sign Co-sign Detail Recorded Client Recorded Date Recorded By Document 12/19/23 15:17 DL Desktop 12/19/23 15:24 DL Document 12/25/23 11:01 KW Desktop 12/25/23 11:20 KW Document 01/02/24 15:21 CP Desktop 01/02/24 15:26 CP Document 01/09/24 15:26 KW Desktop 01/09/24 15:27 KW 12/19/23 12/25/23 01/02/24 15:17 11:01 15:21 Wound Center Nurse 1 #1 R post LE- post-op cluster -Current Size (cm) - Length 2 2.2 2.1 -Current Size (cm) - Width 1.5 2 1.1 -Current Size (cm) - Depth 0.5 0.4 0.4 -Total Square Cm 3.0 4.4 2.31 -Photo Taken No -Epithelialization None Present -Tunneling No -Undermining/Tunneling No -Circular Undermining No -Exudate Amt Medium Large Large -Exudate Type Serosanguineous Serosanguineous Serosanguineous -Wound Margin Distinct, Distinct, Flat & Intact Outline Outline Attached Attached -Granulation Amt Medium (34-66%) Large (67-100%) Large (67-100%) -Granulation Quality Red Red Red -Slough/Fibrin Yes -Necrosis Amt None Present (0 Small (1-33%) None Present (0 %) %) -Necrotic Tissue Type Adherent Slough Adherent Slough -Structure Exposed N/A -Texture (Rachele-wound Skin Appearance) Scarring,Rash Assessed -Moisture (Rachele-wound Skin Appearance) No Abnormality Assessed, Maceration Maceration -Color (Rachele-wound Skin Appearance) Erythema Assessed, Rubor Erythema -Temperature (Rachele-wound Skin No Abnormality No Abnormality No Abnormality Appearance) (Pt Warm) (Pt Warm) (Pt Warm) -Tenderness on Palpation (Rachele-wound Yes Skin Appearance) -Ulcer Cleansing Soap and Water Soap and Water Soap and Water -Foul Odor after Cleansing No No No -Anesthetic Used 5% Lidocaine 5% Lidocaine 5% Lidocaine Gel Gel Gel Right Calf (cm) 65 68 63.8 Right Ankle (cm) 3.6 41 31 01/09/24 15:26 Wound Center Nurse 1 #1 R post LE- post-op cluster -Current Size (cm) - Length 1.5 -Current Size (cm) - Width 2 -Current Size (cm) - Depth 0.5 -Total Square Cm 3.0 -Photo Taken -Epithelialization -Tunneling -Undermining/Tunneling -Circular Undermining -Exudate Amt Large -Exudate Type Yellow/Green -Wound Margin Distinct, Outline Attached -Granulation Amt Medium (34-66%) -Granulation Quality Red -Slough/Fibrin -Necrosis Amt Small (1-33%) -Necrotic Tissue Type Adherent Slough -Structure Exposed -Texture (Rachele-wound Skin Appearance) Assessed,Rash -Moisture (Rachele-wound Skin Appearance) Assessed -Color (Rachele-wound Skin Appearance) Assessed, Erythema -Temperature (Rachele-wound Skin No Abnormality Appearance) (Pt Warm) -Tenderness on Palpation (Rachele-wound Skin Appearance) -Ulcer Cleansing Soap and Water -Foul Odor after Cleansing No -Anesthetic Used 5% Lidocaine Gel Right Calf (cm) 66.5 Right Ankle (cm) 38.5 - Nurse 2 - General Ulcer CM Notes Start: 12/19/23 15:17 Freq: Status: Active Protocol: Activity Type Activity Date Activity User E-sign Co-sign Detail Recorded Client Recorded Date Recorded By Document 12/19/23 15:40 Laptop 12/19/23 15:43 Document 12/25/23 11:30 Laptop 12/25/23 11:34 Document 01/02/24 15:31 Laptop 01/02/24 15:38 Document 01/09/24 15:51 Laptop 01/09/24 15:57 12/19/23 12/25/23 01/02/24 15:40 11:30 15:31 Wound Center Nurse 2 #1 R post LE- post-op cluster -Time 15:40 11:30 15:37 -Correct Patient Yes Yes Yes -Correct Side, Site, Position Yes Yes Yes -Correct Procedure Yes Yes Yes -Procedure Performed Yes Yes Yes -Type of Procedure Debridement Debridement Debridement -Clinical Debridement Subcutaneous Subcutaneous Subcutaneous -Tissue Removed Subcutaneous Subcutaneous Subcutaneous -Post Debridement (cm) - Length 2.2 1.9 3.0 -Post Debridement (cm) - Width 1.6 1.3 1.2 -Post Debridement (cm) - Depth 0.6 0.9 0.4 -Total Square (Post) (cm) 3.52 2.47 3.60 -Area of Debridement (cm) - Length 2.2 1.9 3.0 -Area of Debridement (cm) - Width 1.6 1.3 1.2 -Total Square (Area) (cm) 3.52 2.47 3.60 -Tunneling No No No -Undermining/Tunneling No No No -Circular Undermining No No No -Wound/Ulcer Outcome Not Healed Not Healed Not Healed -Ulcer Cleansing Rinsed/ Rinsed/ Rinsed/ Irrigated with Irrigated with Irrigated with Saline Saline Saline -Foul Odor after Cleansing No No No -Bioengineered Tissue No No No -Bleeding Controlled with Pressure Pressure Pressure -Treatment Response Procedure Procedure Procedure Tolerated Well Tolerated Well Tolerated Well -Offloading No No No -Debridement - Subq, 1st 20sq cm Yes Yes Yes Pain Scale: 0-10 Numeric Is Patient Pain Free? Yes Yes Yes 01/09/24 15:51 Wound Center Nurse 2 #1 R post LE- post-op cluster -Time 15:55 -Correct Patient Yes -Correct Side, Site, Position Yes -Correct Procedure Yes -Procedure Performed Yes -Type of Procedure Debridement -Clinical Debridement Subcutaneous -Tissue Removed Subcutaneous -Post Debridement (cm) - Length 2.8 -Post Debridement (cm) - Width 1.6 -Post Debridement (cm) - Depth 0.5 -Total Square (Post) (cm) 4.48 -Area of Debridement (cm) - Length 2.8 -Area of Debridement (cm) - Width 1.6 -Total Square (Area) (cm) 4.48 -Tunneling No -Undermining/Tunneling No -Circular Undermining No -Wound/Ulcer Outcome Not Healed -Ulcer Cleansing Rinsed/ Irrigated with Saline -Foul Odor after Cleansing No -Bioengineered Tissue No -Bleeding Controlled with Pressure -Treatment Response Procedure Tolerated Well -Offloading No -Debridement - Subq, 1st 20sq cm Yes Pain Scale: 0-10 Numeric Is Patient Pain Free? Yes WC - Nurse 3 - General Ulcer D/C NN Start: 12/19/23 15:17 Freq: Status: Active Protocol: Activity Type Activity Date Activity User E-sign Co-sign Detail Recorded Client Recorded Date Recorded By Document 12/19/23 15:48 KW Desktop 12/19/23 15:49 KW Document 12/25/23 12:03 DL Desktop 12/25/23 12:09 DL Document 12/28/23 11:34 KW [id number] 12/28/23 12:18 KW Document 12/31/23 09:52 KW Desktop 12/31/23 09:54 KW Edit Result 12/31/23 09:52 KW (1) [id number] 12/31/23 12:04 KW Edit Result 12/31/23 09:52 KW (2) [id number] 01/01/24 10:43 KW Document 01/02/24 15:59 BMF Desktop 01/02/24 16:00 BMF Document 01/04/24 10:26 MT Desktop 01/04/24 10:41 MT Document 01/07/24 11:28 BMF Desktop 01/07/24 11:30 BMF Document 01/09/24 16:02 KW Desktop 01/09/24 16:09 KW (1) #1 R post LE- post-op cluster - Negative Pressure Wound Therapy => Continue - Setting (mmHg) => 125 - Negative Pressure is => Continuous - NPWT Application Charge => NPWT > 50 sq cm ($ => ) (2) #1 R post LE- post-op cluster - NPWT Application Charge NPWT > 50 sq cm ($ => NPWT </= 50 sq cm ) => (disp) ($) 12/19/23 12/25/23 12/28/23 15:48 12:03 11:34 Wound Care Center Nurse 3 #1 R post LE- post-op cluster -Ulcer Cleansing Soap and Water -Foul Odor after Cleansing -Negative Pressure Wound Therapy Continue Continue -Setting (mmHg) 125 125 -Negative Pressure is Continuous Continuous -Regranex (If Applicable) -Primary Dressing Applied Promogran Hannah Matter -Other Dressing -Primary Dressing Covered/Secured with Dry Gauze, Secured with Tape -NPWT Application Charge NPWT </= 50 sq NPWT </= 50 sq cm (disp) ($) cm (disp) ($) -Mepilex Border -Promogran Hannah Matter 1 -Wound Comment(s) Right -Multi-Layered Wrap Application Multi-Layer Multi-Layer Comp - Right ($ Comp - Right ($ ) ) -Tubular Bandage Double Layer -Size of Tubigrip Used Size F -Size F ($) 2 Left -Tubular Bandage Double Layer -Size of Tubigrip Used Size F -Size F ($) 2 Treatment Response Vital Signs Temperature (97.8 F-99.1 F) 95.9 F L Temperature Source Temporal Pulse Rate (60-100) 114 H Pulse Location Monitor Respiratory Rate (12-18) 18 Respiratory rate source Observation Oxygen Delivery Method Room Air Blood Pressure (90/60-120/80) 200/89 H Blood Pressure Mean (mm Hg) 126 Source Monitor Position Semi-Fowlers Blood Pressure Location Left Arm Pain Scale: 0-10 Numeric Is Patient Pain Free? Yes Yes Yes WC - Visit Discharge Discharge Condition Stable Stable Stable Ambulatory Status Ambulatory Ambulatory Ambulatory Transportation Private Auto Private Auto Private Auto Medication Reconcilliation completed & No No No provided to patient/care provider Clinical Summary of Care Provided Yes Yes Yes Notes: new snap placed with 3M on top per order, ABD placed under 3M so snap and tub dont rub. Jessica Naidu LPN placed snap vac and 3M 12/31/23 01/02/24 01/04/24 09:52 15:59 10:26 Wound Care Center Nurse 3 #1 R post LE- post-op cluster -Ulcer Cleansing Rinsed/ Soap and Water Irrigated with Saline -Foul Odor after Cleansing No Yes -Negative Pressure Wound Therapy Continue Continue Start -Setting (mmHg) 125 125 125 -Negative Pressure is Continuous Continuous Continuous -Regranex (If Applicable) Continue -Primary Dressing Applied -Other Dressing snap -Primary Dressing Covered/Secured with Secured with Tape -NPWT Application Charge NPWT </= 50 sq NPWT & NPWT </= 50 sq cm (disp) ($) Debridement (nc cm (disp) ($) ) -Mepilex Border -Promogran Hannah Matter -Wound Comment(s) PT DRESSING WAS snap padded INTACT, JUST well under 3M NEEDED SNAP CANISTER CHANGED, WILL BE SEEN THIS WED FOR DR VISIT. Right -Multi-Layered Wrap Application Multi-Layer Multi-Layer Comp - Right ($ Comp - Right ($ ) ) -Tubular Bandage -Size of Tubigrip Used -Size F ($) Left -Tubular Bandage -Size of Tubigrip Used -Size F ($) Treatment Response Procedure Tolerated Well Vital Signs Temperature (97.8 F-99.1 F) 96.9 F L 98 F Temperature Source Temporal Temporal Pulse Rate (60-100) 102 H 109 H Pulse Location Monitor Monitor Respiratory Rate (12-18) 18 18 Respiratory rate source Observation Observation Oxygen Delivery Method Room Air Blood Pressure (90/60-120/80) 144/85 H 128/73 H Blood Pressure Mean (mm Hg) 104 91 Source Monitor Monitor Position Semi-Fowlers Sitting Blood Pressure Location Left Arm Right Forearm Pain Scale: 0-10 Numeric Is Patient Pain Free? Yes Yes Yes WC - Visit Discharge Discharge Condition Stable Stable Stable Ambulatory Status Ambulatory Ambulatory Ambulatory Transportation Private Auto Private Auto Private Auto Medication Reconcilliation completed & No No provided to patient/care provider Clinical Summary of Care Provided Yes Yes Notes: nurse visit. 3M & snap vac. 01/07/24 01/09/24 11:28 16:02 Wound Care Center Nurse 3 #1 R post LE- post-op cluster -Ulcer Cleansing Soap and Water -Foul Odor after Cleansing No -Negative Pressure Wound Therapy Continue -Setting (mmHg) 125 -Negative Pressure is Continuous -Regranex (If Applicable) -Primary Dressing Applied Hysept ($), Mepilex Border -Other Dressing -Primary Dressing Covered/Secured with -NPWT Application Charge NPWT </= 50 sq cm (disp) ($) -Mepilex Border 1 -Promogran Hannah Matter -Wound Comment(s) Right -Multi-Layered Wrap Application Multi-Layer Comp - Right ($ ) -Tubular Bandage Double Layer -Size of Tubigrip Used Size F -Size F ($) 2 Left -Tubular Bandage -Size of Tubigrip Used -Size F ($) Treatment Response Procedure Tolerated Well Vital Signs Temperature (97.8 F-99.1 F) Temperature Source Pulse Rate (60-100) 101 H Pulse Location Monitor Respiratory Rate (12-18) 18 Respiratory rate source Observation Oxygen Delivery Method Room Air Blood Pressure (90/60-120/80) 135/88 H Blood Pressure Mean (mm Hg) 103 Source Monitor Position Sitting Blood Pressure Location Left Forearm Pain Scale: 0-10 Numeric Is Patient Pain Free? Yes Yes WC - Visit Discharge Discharge Condition Stable Ambulatory Status Ambulatory Transportation Medication Reconcilliation completed & provided to patient/care provider Clinical Summary of Care Provided Notes: Assessment/Plan Assessment/Plan (1) Non-pressure chronic ulcer of unspecified part of right lower leg with fat layer exposed: CODE(S): L97.912 - Non-pressure chronic ulcer of unspecified part of rightlower leg with fat layer exposed PLAN: Patient was examined and evaluated. All findings were discussed with the patient. All questions were answered to the patient's satisfaction. Excisional debridement down to and including subcutaneous tissue with a number 3mm dermal curette to the right posterior calf. Predebridement measurement was 2.7 x 1.4 x 0.4 cm. Postdebridement measurement is 2.8 x 1.6 x 0.5 cm. The patient will be on a wound VAC holiday secondary to irritated skin to the posterior right calf. The patient's ulceration was dressed with Dakin solution dry sterile dressing and double layer Tubigrip. Patient will perform daily dressing changes she is understanding of this. Review of the patient's culture show evidence of Enterobacter Colace and the patient will be placed on Levaquin 500 mg to be taken daily for 2 weeks. Follow-up at the wound care center with Dr. Lord in 1 week. (2) Lymphedema, not elsewhere classified: CODE(S): I89.0 - Lymphedema, not elsewhere classified (3) Cellulitis: CODE(S): L03.90 - Cellulitis, unspecified QUALIFIERS: Site of cellulitis: extremity Site of cellulitis of extremity: lower extremity Laterality: right Qualified Code(s): L03.115 - Cellulitis of right lower limb 01/09/24 1648 <Electronically signed by Sebas Lord DPM> Cosigner Signature (if applicable): CC: ~ Signed [facility] Work Phone: 1(129) 598-682504-24-2024 Telephone encounter Note* Telephone Encounter - Regina Patterson LPN - 01/09/2024 1:02 PM EDT Patient has been identified by name and date of : Yes Pharmacy phones for refill(s): Requested Prescriptions Pending Prescriptions Disp Refills mometasone-formoterol (DULERA) 50-5 mcg/actuation HFA aerosol inhaler 13 g 2 Sig: Inhale 1 Puff as instructed two times a day. Date of last office visit in primary care: 12/07/2023 Date of next office visit in primary care: 06/23/2024 Please advise. Thank you. Regina Patterson LPN. [facility]04-24-2024 Miscellaneous Notes* Telephone Encounter - Regina Patterson LPN - 01/09/2024 1:02 PM EDT Patient has been identified by name and date of : Yes Pharmacy phones for refill(s): Requested Prescriptions Pending Prescriptions Disp Refills mometasone-formoterol (DULERA) 50-5 mcg/actuation HFA aerosol inhaler 13 g 2 Sig: Inhale 1 Puff as instructed two times a day. Date of last office visit in primary care: 12/07/2023 Date of next office visit in primary care: 06/23/2024 Please advise. Thank you. Regina Patterson LPN. [facility] Progress note Author Sebas Lord [facility] January 02, 2024 4:13pm Note Date/Time January 02, 2024 4:1 3pm [facility] [address] [place] [address] Progress Note - Wound Care 01/02/24 1608 MR#: [id number] Acct: [id number] Name: NANCI RODRIGUEZ Rep #:[id number] : 1980 43 From: Sebas Dhaliwal PM PCP: Dr. Rodri Chauhan MD Status:RE G RCR Location: History of Present Illness Date of Service: 01/02/24 Chief Complaint: Ulceration right posterior leg History of Wound: Ulceration right posterior leg Progress of Wound: Denies constitutional symptoms. Denies pain. Some increased swelling redness to right posterior leg wound. Patient was here for nursing visit due to some worsening of wound decision was made to see me today. Subjective Subjective Mrs. Rodriguez is a 43-year-old diabetic [facility] full-thickness ulceration of the posterior aspect of the right leg. Patient has followed up with her dentist and had her teeth removed. She does admit to some discomfort to her mouth. In regards to the right lower extremity full-thickness ulcerationshe has been compliant with her compression wraps and negative pressure VAC. She has followed up with the wound care center for at least 3 canister exchanges. Overall she is grateful for her care. She notices improvement to her leg swelling. She admits her blood sugar has been a little elevated since being on a steroid that was provided by her dentist. Her blood sugar was in the+4 100s and is in the +2 100s today. Denies trauma. Denies constitutional symptoms. No other pedal complaints at this time. Objective Data Objective Data Vital Signs: Vital Signs Temp Pulse Resp BP O2 Del Method 97.7 F L 123 H 18 165/108 H Room Air 01/02/24 15:21 01/02/24 15:21 01/02/24 15:21 01/02/24 15:21 01/02/24 15:21 Oxygen Delivery Method Room Air Weight: 160.223 kg Body Mass Index (BMI) 62.5 Physical Exam Narrative Vascular: DP and PT pulses palpable. CFT is brisk. Nonpitting edema appreciated to right lower extremity. No erythema or proximal streaking is appreciated. Neurological: Light touch intact. Patient response to painful stimuli. Dermatological: Evidence of surgical wound dehiscence secondary to nonweightbearing and lack of medical compliance. Full-thickness ulceration measures 3.0 x 1.2 x 0.4 cm. Wound base is granular nature with sanguinous drainage after debridement. No evidence of erythema or proximal streaking. Cannot rule out infection at this time. Excisional debridement down to and including subcutaneous tissue with a number 3mm dermal curette to the right posterior calf. Predebridement measurement was 2.0 x 1.1 x 0.4 cm. Postdebridement measurement is 3.0 x 1.2 x 0.4 cm. Musculoskeletal: No pain with calf compression. Mild pain to palpation full- thickness ulceration right calf. Debridement Note Debridement Note Debridement Free Text: Excisional debridement down to and including subcutaneoustissue with a number 3 mm dermal curette to the right posterior calf. Predebridement measurement was 2.0 x 1.1 x 0.4 cm. Postdebridement measurement is 3.0 x 1.2 x 0.4 cm. Post-Debridement Measurements and Additional Note: Post-Debridement Measurements/Treatment - Nurse 1 - General Ulcer Assessment Start: 12/19/23 15:17 Freq: Status: Active Protocol: WC.LOWEXT Activity Type Activity Date Activity User E-sign Co-sign Detail Recorded Client Recorded Date Recorded By Document 12/19/23 15:17 DL Desktop 12/19/23 15:24 DL Document 12/25/23 11:01 KW Desktop 12/25/23 11:20 KW Document 12/28/23 11:34 KW [id number] 12/28/23 12:18 KW Document 12/31/23 09:52 KW Desktop 12/31/23 09:54 KW Document 01/02/24 15:21 CP Desktop 01/02/24 15:26 CP 12/19/23 12/25/23 12/28/23 15:17 11:01 11:34 - Today's Visit Information Type of service Follow-up Visit Follow-up Visit Nurse-only (Physician/SENIOR TRAINER (Physician/SENIOR TRAINER Visit ) ) Arrival Mode Ambulatory, Ambulatory Ambulatory Walker Arrival Mode (Other) knee walker Transfer Assistance None Patient Identification Verified (Name & Yes Yes Yes ) Patient Requires Transmission-Based No Precautions Height and Weight Body Mass Index (BMI) 62.5 62.5 62.5 BMI Classification Obese Obese Obese Vital Signs Temperature (97.8 F-99.1 F) 97.8 F 97.5 F L 95.9 F L Temperature Source Temporal Temporal Temporal Pulse Rate (60-100) 121 H 114 H 114 H Pulse Location Monitor Monitor Monitor Respiratory Rate (12-18) 22 H 18 18 Respiratory rate source Observation Observation Observation Oxygen Delivery Method Room Air Room Air Blood Pressure (90/60-120/80) 152/92 H 156/85 H 200/89 H Blood Pressure Mean (mm Hg) 112 108 126 Source Monitor Monitor Monitor Position Sitting Semi-Fowlers Blood Pressure Location Left Forearm Left Arm History Since Last Visit- (Skip if this is Patient's initial visit) Have you changed medications since your No No No last visit? Any new allergies or adverse reactions No No No Had a fall/change in ADL's that may No No No increase risk of falls Signs or symptoms of abuse and/or No No No neglect since last visit Have you been in the hospital since your No No No last visit? Has dressing in place as prescribed Yes Yes Yes Has compression in place as prescribed Yes Yes Yes Has offloadiing in place as prescribed Yes N/A N/A Experienced any changes in pain level or No No No management Left Footwear Regular Shoe Regular Shoe Regular Shoe Right Footwear Regular Shoe Regular Shoe Regular Shoe Pain Scale: 0-10 Numeric Is Patient Pain Free? Yes Yes Yes Rt post leg -Description Burning, Pressure 12/31/23 01/02/24 09:52 15:21 WC - Today's Visit Information Type of service Nurse-only Follow-up Visit Visit (Physician/SENIOR TRAINER ) Arrival Mode Ambulatory Ambulatory Arrival Mode (Other) Transfer Assistance Patient Identification Verified (Name & Yes Yes ) Patient Requires Transmission-Based No Precautions Height and Weight Body Mass Index (BMI) 62.5 62.5 BMI Classification Obese Obese Vital Signs Temperature (97.8 F-99.1 F) 96.9 F L 97.7 F L Temperature Source Temporal Temporal Pulse Rate (60-100) 102 H 123 H Pulse Location Monitor Monitor Respiratory Rate (12-18) 18 18 Respiratory rate source Observation Observation Oxygen Delivery Method Room Air Room Air Blood Pressure (90/60-120/80) 144/85 H 165/108 H Blood Pressure Mean (mm Hg) 104 127 Source Monitor Monitor Position Semi-Fowlers Sitting Blood Pressure Location Left Arm Left Forearm History Since Last Visit- (Skip if this is Patient's initial visit) Have you changed medications since your No No last visit? Any new allergies or adverse reactions No No Had a fall/change in ADL's that may No No increase risk of falls Signs or symptoms of abuse and/or No No neglect since last visit Have you been in the hospital since your No No last visit? Has dressing in place as prescribed Yes Yes Has compression in place as prescribed Yes Yes Has offloadiing in place as prescribed N/A N/A Experienced any changes in pain level or No No management Left Footwear Regular Shoe Right Footwear Regular Shoe Pain Scale: 0-10 Numeric Is Patient Pain Free? Yes Yes Rt post leg -Description WC - Nurse 1 - General Ulcer Measurement Start: 12/19/23 15:17 Freq: Status: Active Protocol: Activity Type Activity Date Activity User E-sign Co-sign Detail Recorded Client Recorded Date Recorded By Document 12/19/23 15:17 DL Desktop 12/19/23 15:24 DL Document 12/25/23 11:01 KW Desktop 12/25/23 11:20 KW Document 01/02/24 15:21 CP Desktop 01/02/24 15:26 CP 12/19/23 12/25/23 01/02/24 15:17 11:01 15:21 Wound Center Nurse 1 #1 R post LE- post-op cluster -Current Size (cm) - Length 2 2.2 2.1 -Current Size (cm) - Width 1.5 2 1.1 -Current Size (cm) - Depth 0.5 0.4 0.4 -Total Square Cm 3.0 4.4 2.31 -Photo Taken No -Epithelialization None Present -Tunneling No -Undermining/Tunneling No -Circular Undermining No -Exudate Amt Medium Large Large -Exudate Type Serosanguineous Serosanguineous Serosanguineous -Wound Margin Distinct, Distinct, Flat & Intact Outline Outline Attached Attached -Granulation Amt Medium (34-66%) Large (67-100%) Large (67-100%) -Granulation Quality Red Red Red -Slough/Fibrin Yes -Necrosis Amt None Present (0 Small (1-33%) None Present (0 %) %) -Necrotic Tissue Type Adherent Slough Adherent Slough -Structure Exposed N/A -Texture (Rachele-wound Skin Appearance) Scarring,Rash Assessed -Moisture (Rachele-wound Skin Appearance) No Abnormality Assessed, Maceration Maceration -Color (Rachele-wound Skin Appearance) Erythema Assessed, Rubor Erythema -Temperature (Rachele-wound Skin No Abnormality No Abnormality No Abnormality Appearance) (Pt Warm) (Pt Warm) (Pt Warm) -Tenderness on Palpation (Rachele-wound Yes Skin Appearance) -Ulcer Cleansing Soap and Water Soap and Water Soap and Water -Foul Odor after Cleansing No No No -Anesthetic Used 5% Lidocaine 5% Lidocaine 5% Lidocaine Gel Gel Gel Right Calf (cm) 65 68 63.8 Right Ankle (cm) 3.6 41 31 - Nurse 2 - General Ulcer CM Notes Start: 12/19/23 15:17 Freq: Status: Active Protocol: Activity Type Activity Date Activity User E-sign Co-sign Detail Recorded Client Recorded Date Recorded By Document 12/19/23 15:40 Laptop 12/19/23 15:43 Document 12/25/23 11:30 Laptop 12/25/23 11:34 Document 01/02/24 15:31 Laptop 01/02/24 15:38 12/19/23 12/25/23 01/02/24 15:40 11:30 15:31 Wound Center Nurse 2 #1 R post LE- post-op cluster -Time 15:40 11:30 15:37 -Correct Patient Yes Yes Yes -Correct Side, Site, Position Yes Yes Yes -Correct Procedure Yes Yes Yes -Procedure Performed Yes Yes Yes -Type of Procedure Debridement Debridement Debridement -Clinical Debridement Subcutaneous Subcutaneous Subcutaneous -Tissue Removed Subcutaneous Subcutaneous Subcutaneous -Post Debridement (cm) - Length 2.2 1.9 3.0 -Post Debridement (cm) - Width 1.6 1.3 1.2 -Post Debridement (cm) - Depth 0.6 0.9 0.4 -Total Square (Post) (cm) 3.52 2.47 3.60 -Area of Debridement (cm) - Length 2.2 1.9 3.0 -Area of Debridement (cm) - Width 1.6 1.3 1.2 -Total Square (Area) (cm) 3.52 2.47 3.60 -Tunneling No No No -Undermining/Tunneling No No No -Circular Undermining No No No -Wound/Ulcer Outcome Not Healed Not Healed Not Healed -Ulcer Cleansing Rinsed/ Rinsed/ Rinsed/ Irrigated with Irrigated with Irrigated with Saline Saline Saline -Foul Odor after Cleansing No No No -Bioengineered Tissue No No No -Bleeding Controlled with Pressure Pressure Pressure -Treatment Response Procedure Procedure Procedure Tolerated Well Tolerated Well Tolerated Well -Offloading No No No -Debridement - Subq, 1st 20sq cm Yes Yes Yes Pain Scale: 0-10 Numeric Is Patient Pain Free? Yes Yes Yes - Nurse 3 - General Ulcer D/C NN Start: 12/19/23 15:17 Freq: Status: Active Protocol: Activity Type Activity Date Activity User E-sign Co-sign Detail Recorded Client Recorded Date Recorded By Document 12/19/23 15:48 KW Desktop 12/19/23 15:49 KW Document 12/25/23 12:03 DL Desktop 12/25/23 12:09 DL Document 12/28/23 11:34 KW [id number] 12/28/23 12:18 KW Document 12/31/23 09:52 KW Desktop 12/31/23 09:54 KW Edit Result 12/31/23 09:52 KW (1) [id number] 12/31/23 12:04 KW Edit Result 12/31/23 09:52 KW (2) [id number] 01/01/24 10:43 KW Document 01/02/24 15:59 BMF Desktop 01/02/24 16:00 BMF (1) #1 R post LE- post-op cluster - Negative Pressure Wound Therapy => Continue - Setting (mmHg) => 125 - Negative Pressure is => Continuous - NPWT Application Charge => NPWT > 50 sq cm ($ => ) (2) #1 R post LE- post-op cluster - NPWT Application Charge NPWT > 50 sq cm ($ => NPWT </= 50 sq cm ) => (disp) ($) 12/19/23 12/25/23 12/28/23 15:48 12:03 11:34 Wound Care Center Nurse 3 #1 R post LE- post-op cluster -Ulcer Cleansing Soap and Water -Foul Odor after Cleansing -Negative Pressure Wound Therapy Continue Continue -Setting (mmHg) 125 125 -Negative Pressure is Continuous Continuous -Primary Dressing Applied Promogran Hannah Matter -Other Dressing -Primary Dressing Covered/Secured with Dry Gauze, Secured with Tape -NPWT Application Charge NPWT </= 50 sq NPWT </= 50 sq cm (disp) ($) cm (disp) ($) -Promogran Hannah Matter 1 -Wound Comment(s) Right -Multi-Layered Wrap Application Multi-Layer Multi-Layer Comp - Right ($ Comp - Right ($ ) ) -Tubular Bandage Double Layer -Size of Tubigrip Used Size F -Size F ($) 2 Left -Tubular Bandage Double Layer -Size of Tubigrip Used Size F -Size F ($) 2 Treatment Response Vital Signs Temperature (97.8 F-99.1 F) 95.9 F L Temperature Source Temporal Pulse Rate (60-100) 114 H Pulse Location Monitor Respiratory Rate (12-18) 18 Respiratory rate source Observation Oxygen Delivery Method Room Air Blood Pressure (90/60-120/80) 200/89 H Blood Pressure Mean (mm Hg) 126 Source Monitor Position Semi-Fowlers Blood Pressure Location Left Arm Pain Scale: 0-10 Numeric Is Patient Pain Free? Yes Yes Yes WC - Visit Discharge Discharge Condition Stable Stable Stable Ambulatory Status Ambulatory Ambulatory Ambulatory Transportation Private Auto Private Auto Private Auto Medication Reconcilliation completed & No No No provided to patient/care provider Clinical Summary of Care Provided Yes Yes Yes Notes: new snap placed with 3M on top per order, ABD placed under 3M so snap and tub dont rub. Jessica Naidu LPN placed snap vac and 3M 12/31/23 01/02/24 09:52 15:59 Wound Care Center Nurse 3 #1 R post LE- post-op cluster -Ulcer Cleansing Rinsed/ Irrigated with Saline -Foul Odor after Cleansing No -Negative Pressure Wound Therapy Continue Continue -Setting (mmHg) 125 125 -Negative Pressure is Continuous Continuous -Primary Dressing Applied -Other Dressing snap -Primary Dressing Covered/Secured with -NPWT Application Charge NPWT </= 50 sq NPWT & cm (disp) ($) Debridement (nc ) -Promogran Hannah Matter -Wound Comment(s) PT DRESSING WAS snap padded INTACT, JUST well under 3M NEEDED SNAP CANISTER CHANGED, WILL BE SEEN THIS WED FOR DR VISIT. Right -Multi-Layered Wrap Application Multi-Layer Comp - Right ($ ) -Tubular Bandage -Size of Tubigrip Used -Size F ($) Left -Tubular Bandage -Size of Tubigrip Used -Size F ($) Treatment Response Procedure Tolerated Well Vital Signs Temperature (97.8 F-99.1 F) 96.9 F L Temperature Source Temporal Pulse Rate (60-100) 102 H Pulse Location Monitor Respiratory Rate (12-18) 18 Respiratory rate source Observation Oxygen Delivery Method Room Air Blood Pressure (90/60-120/80) 144/85 H Blood Pressure Mean (mm Hg) 104 Source Monitor Position Semi-Fowlers Blood Pressure Location Left Arm Pain Scale: 0-10 Numeric Is Patient Pain Free? Yes Yes WC - Visit Discharge Discharge Condition Stable Stable Ambulatory Status Ambulatory Ambulatory Transportation Private Auto Private Auto Medication Reconcilliation completed & No provided to patient/care provider Clinical Summary of Care Provided Yes Notes: Assessment/Plan Assessment/Plan (1) Non-pressure chronic ulcer of unspecified part of right lower leg with fat layer exposed: CODE(S): L97.912 - Non-pressure chronic ulcer of unspecified part of rightlower leg with fat layer exposed PLAN: Patient was examined and evaluated. All findings were discussed with the patient. All questions were answered to the patient's satisfaction. Excisional debridement down to and including subcutaneous tissue with a number 3mm dermal curette to the right posterior calf. Predebridement measurement was 2.0 x 1.1 x 0.4 cm. Postdebridement measurement is 3.0 x 1.2 x 0.4 cm. Right lower extremities were cleaned and patted dry. The snap negative pressure VAC was applied without incident. The patient right lower extremity was dressed with double layer 3M compression wrap. The patient will follow-up for nursing visits weekly and for canister exchange when needed. Patient will go to the hospital to get blood work that was given to her during her last appointment from Dr. Hilliard. Culture was taken of the full-thickness ulceration secondary to increased drainage using the negative pressure wound VAC. Follow-up at the wound care center with Dr. Lord in 1 week. (2) Acute painful diabetic polyneuropathy: CODE(S): E11.42 - Type 2 diabetes mellitus with diabetic polyneuropathy 01/02/24 1613 <Electronically signed by Sebas Lord DPM> Cosigner Signature (if applicable): CC: ~ Signed [facility] Work Phone: 1(935) 124-198504-12-2024 Miscellaneous Notes* Telephone Encounter - Sherie Lazcano - 12/28/2023 3:38 PM EDT Patient has been identified by name and date of : Patient phones for refill(s): Requested Prescriptions Pending Prescriptions Disp Refills cyclobenzaprine (FLEXERIL) 10 mg tablet 30 tablet 2 Sig: Take 1 tablet by mouth three times a day as needed for muscle spasm. May make drowsy Lancets 100 Each 11 Sig: Test blood sugar(s) once times daily. Dx: Type 2 DM - Controlled E11.9 Insulin: No Date of last office visit in primary care: 12/07/2023 Date of next office visit in primary care: 06/02/2024 Please advise. Thank you. Sherie Lazcano. [facility] Progress note Author Collins Hilliard [facility] December 25, 2023 12:04pm Note Date/Time December 25, 2023 12:0 4pm [facility] [address] [place] [id number] Progress Note - Wound Care 12/25/23 1159 MR#: [id number] Acct: [id number] Name: NANCI RODRIGUEZ Rep #:[id number] : 1980 43 From: Collins Hilliard DPM PCP: Dr. Rodri Chauhan MD Status:RE G RCR Location: History of Present Illness Date of Service: 12/25/23 Chief Complaint: Ulceration right posterior leg History of Wound: Ulceration right posterior leg Progress of Wound: Denies constitutional symptoms. Denies pain. Some increased swelling redness to right posterior leg wound. Patient was here for nursing visit due to some worsening of wound decision was made to see me today. Objective Data Objective Data Vital Signs: Vital Signs Temp Pulse Resp BP O2 Del Method 97.5 F L 114 H 18 156/85 H Room Air 12/25/23 11:12/25/23 11:01 12/25/23 11:12/25/23 11:12/25/23 11:01 Oxygen Delivery Method Room Air Weight: 160.223 kg Body Mass Index (BMI) 62.5 Physical Exam Narrative Neurovascular status unchanged Posterior right calf wound full-thickness down to level of subcutaneous tissue. Predebridement demonstrate fibrogranular base. Postdebridement demonstrate 100%granular base. There is some periwound edema and erythema noted. There is moderate drainage noted, serosanguineous. Pre and postdebridement measurements documented nursing notes. No pain with calf squeeze. Muscular strength full to bilateral lower extremity compartments. Debridement Note Debridement Note Post-Debridement Measurements and Additional Note: Post-Debridement Measurements/Treatment WC - Nurse 1 - General Ulcer Assessment Start: 12/19/23 15:17 Freq: Status: Active Protocol: WATSON Activity Type Activity Date Activity User E-sign Co-sign Detail Recorded Client Recorded Date Recorded By Document 12/19/23 15:17 DL Desktop 12/19/23 15:24 DL Document 12/25/23 11:01 KW Desktop 12/25/23 11:20 KW 12/19/23 12/25/23 15:17 11:01 WC - Today's Visit Information Type of service Follow-up Visit Follow-up Visit (Physician/SENIOR TRAINER (Physician/SENIOR TRAINER ) ) Arrival Mode Ambulatory, Ambulatory Walker Arrival Mode (Other) knee walker Transfer Assistance None Patient Identification Verified (Name & Yes Yes ) Patient Requires Transmission-Based No Precautions Height and Weight Body Mass Index (BMI) 62.5 62.5 BMI Classification Obese Obese Vital Signs Temperature (97.8 F-99.1 F) 97.8 F 97.5 F L Temperature Source Temporal Temporal Pulse Rate (60-100) 121 H 114 H Pulse Location Monitor Monitor Respiratory Rate (12-18) 22 H 18 Respiratory rate source Observation Observation Oxygen Delivery Method Room Air Blood Pressure (90/60-120/80) 152/92 H 156/85 H Blood Pressure Mean (mm Hg) 112 108 Source Monitor Monitor Position Sitting Blood Pressure Location Left Forearm History Since Last Visit- (Skip if this is Patient's initial visit) Have you changed medications since your No No last visit? Any new allergies or adverse reactions No No Had a fall/change in ADL's that may No No increase risk of falls Signs or symptoms of abuse and/or No No neglect since last visit Have you been in the hospital since your No No last visit? Has dressing in place as prescribed Yes Yes Has compression in place as prescribed Yes Yes Has offloadiing in place as prescribed Yes N/A Experienced any changes in pain level or No No management Left Footwear Regular Shoe Regular Shoe Right Footwear Regular Shoe Regular Shoe Pain Scale: 0-10 Numeric Is Patient Pain Free? Yes Yes Rt post leg -Description Burning, Pressure - Nurse 1 - General Ulcer Measurement Start: 12/19/23 15:17 Freq: Status: Active Protocol: Activity Type Activity Date Activity User E-sign Co-sign Detail Recorded Client Recorded Date Recorded By Document 12/19/23 15:17 DL Desktop 12/19/23 15:24 DL Document 12/25/23 11:01 KW Desktop 12/25/23 11:20 KW 12/19/23 12/25/23 15:17 11:01 Wound Center Nurse 1 #1 R post LE- post-op cluster -Current Size (cm) - Length 2 2.2 -Current Size (cm) - Width 1.5 2 -Current Size (cm) - Depth 0.5 0.4 -Total Square Cm 3.0 4.4 -Exudate Amt Medium Large -Exudate Type Serosanguineous Serosanguineous -Wound Margin Distinct, Distinct, Outline Outline Attached Attached -Granulation Amt Medium (34-66%) Large (67-100%) -Granulation Quality Red Red -Necrosis Amt None Present (0 Small (1-33%) %) -Necrotic Tissue Type Adherent Slough -Texture (Rachele-wound Skin Appearance) Scarring,Rash Assessed -Moisture (Rachele-wound Skin Appearance) No Abnormality Assessed, Maceration -Color (Rachele-wound Skin Appearance) Erythema Assessed, Erythema -Temperature (Rachele-wound Skin No Abnormality No Abnormality Appearance) (Pt Warm) (Pt Warm) -Ulcer Cleansing Soap and Water Soap and Water -Foul Odor after Cleansing No No -Anesthetic Used 5% Lidocaine 5% Lidocaine Gel Gel Right Calf (cm) 65 68 Right Ankle (cm) 3.6 41 WC - Nurse 2 - General Ulcer CM Notes Start: 12/19/23 15:17 Freq: Status: Active Protocol: Activity Type Activity Date Activity User E-sign Co-sign Detail Recorded Client Recorded Date Recorded By Document 12/19/23 15:40 Laptop 12/19/23 15:43 Document 12/25/23 11:30 Laptop 12/25/23 11:34 JF 12/19/23 12/25/23 15:40 11:30 Wound Center Nurse 2 #1 R post LE- post-op cluster -Time 15:40 11:30 -Correct Patient Yes Yes -Correct Side, Site, Position Yes Yes -Correct Procedure Yes Yes -Procedure Performed Yes Yes -Type of Procedure Debridement Debridement -Clinical Debridement Subcutaneous Subcutaneous -Tissue Removed Subcutaneous Subcutaneous -Post Debridement (cm) - Length 2.2 1.9 -Post Debridement (cm) - Width 1.6 1.3 -Post Debridement (cm) - Depth 0.6 0.9 -Total Square (Post) (cm) 3.52 2.47 -Area of Debridement (cm) - Length 2.2 1.9 -Area of Debridement (cm) - Width 1.6 1.3 -Total Square (Area) (cm) 3.52 2.47 -Tunneling No No -Undermining/Tunneling No No -Circular Undermining No No -Wound/Ulcer Outcome Not Healed Not Healed -Ulcer Cleansing Rinsed/ Rinsed/ Irrigated with Irrigated with Saline Saline -Foul Odor after Cleansing No No -Bioengineered Tissue No No -Bleeding Controlled with Pressure Pressure -Treatment Response Procedure Procedure Tolerated Well Tolerated Well -Offloading No No -Debridement - Subq, 1st 20sq cm Yes Yes Pain Scale: 0-10 Numeric Is Patient Pain Free? Yes Yes - Nurse 3 - General Ulcer D/C NN Start: 12/19/23 15:17 Freq: Status: Active Protocol: Activity Type Activity Date Activity User E-sign Co-sign Detail Recorded Client Recorded Date Recorded By Document 12/19/23 15:48 KW Desktop 12/19/23 15:49 KW 12/19/23 15:48 Wound Care Center Nurse 3 #1 R post LE- post-op cluster -Primary Dressing Applied Promogran Hannah Matter -Primary Dressing Covered/Secured with Dry Gauze, Secured with Tape -Promogran Hannah Matter 1 Right -Tubular Bandage Double Layer -Size of Tubigrip Used Size F -Size F ($) 2 Left -Tubular Bandage Double Layer -Size of Tubigrip Used Size F -Size F ($) 2 Pain Scale: 0-10 Numeric Is Patient Pain Free? 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 Stable wound to posterior right calf. I believe today erythema is likely secondary to drainage sitting on periwound skin. I evaluated patient's arterial studies demonstrate correct calcified vessels. Reviewed venous studies. No evidence of acute DVT. Today I ordered CBC, CMP, CRP, ESR, D-dimer, hemoglobin A1c. Patient reports that her A1c has recently decreased from 11 to 7, but we have norecords of this. I discussed with patient that a large portion of her peripheral complaints including delayed wound healing and loss of dentition and obese stature are likely secondary to her poor blood glucose control and continued cigarette use. Discussed smoking cessation with patient today. Right posterior leg wound was excisionally debrided down to including level subcutaneous tissue of all nonviable tissue using 5 mm dermal curette without incident. Pre and postdebridement measurements documented nursing notes. Hemostasis obtained with light compression. Topical anesthesia used. Patient tolerated procedure well. Today patient had Snap VAC approved this was applied to the right posterior leg wound along with an overlying 3M compression wrap. Patient will follow-up on Sunday for nursing dressing visit. Then patient will follow-up in [address] Lord. (2) Wound dehiscence, surgical: CODE(S): T81.31XA - Disruption of external operation (surgical) wound, notelsewhere classified, initial encounter QUALIFIERS: Encounter type: subsequent encounter Qualified Code(s): T81.31XD - Disruption of external operation (surgical) wound, not elsewhere classified, subsequent encounter (3) Lymphedema, not elsewhere classified: CODE(S): I89.0 - Lymphedema, not elsewhere classified (4) Non-pressure chronic ulcer of unspecified part of right lower leg with fat layer exposed: CODE(S): L97.912 - Non-pressure chronic ulcer of unspecified part of rightlower leg with fat layer exposed 12/25/23 1204 <Electronically signed by Collins Hilliard DPM> Cosigner Signature (if applicable): CC: ~ Signed [facility] Work Phone: [phone]) 782-917604-03-2024 Progress note Author Sebas Lord [facility] December 19, 2023 4:17pm Note Date/Time December 19, 2023 4:17 pm [facility] [address] [place] [id number] Progress Note - Wound Care 12/19/23 1613 MR#: [id number] Acct: [id number] Name: NANCI RODRIGUEZ Rep #:[id number] : 1980 43 From: Sebas Dhaliwal PM PCP: Dr. Rodri Chauhan MD Status:RE G RCR Location: History of Present Illness Date of Service: 12/19/23 Chief Complaint: Ulceration right posterior leg History of Wound: Ulceration right posterior leg Subjective Subjective Ms. Rodriguez is a 43-year-old diabetic female presenting to the wound care center today for follow-up evaluation of surgical wound dehiscence to the posterior right leg. Patient admits to being controlled diabetic and her blood sugar today was 162 mg/dL. She does admit to smoking. She has been compliant with keeping her 3M wraps the right lower extremity clean dry and intact. Denies trauma. Denies constitutional symptoms or any other pedal complaints at this time. Objective Data Objective Data Vital Signs: Vital Signs Temp Pulse Resp BP 97.8 F 121 H 22 H 152/92 H 12/19/23 15:17 12/19/23 15:17 12/19/23 15:17 12/19/23 15:17 Weight: 160.223 kg Body Mass Index (BMI) 62.5 Physical Exam Narrative Vascular: DP and PT pulses palpable. CFT is brisk. Nonpitting edema appreciated to right lower extremity. No erythema or proximal streaking is appreciated. Neurological: Light touch intact. Patient response to painful stimuli. Dermatological: Evidence of surgical wound dehiscence secondary to nonweightbearing and lack of medical compliance. Full-thickness ulceration measures 2.2 x 1.6 x 0.6 cm. Wound base is granular nature with sanguinous drainage after debridement. No evidence of erythema or proximal streaking. Cannot rule out infection at this time. Excisional debridement down to and including subcutaneous tissue with a number 3mm dermal curette to the right posterior calf. Predebridement measurement was 2.0 x 1.5 x 0.5 cm. Postdebridement measurement is 2.2 x 1.6 x 0.6 cm. Musculoskeletal: No pain with calf compression. Mild pain to palpation full- thickness ulceration right calf. Debridement Note Debridement Note Debridement Free Text: Excisional debridement down to and including subcutaneoustissue with a number 3 mm dermal curette to the right posterior calf. Predebridement measurement was 2.0 x 1.5 x 0.5 cm. Postdebridement measurement is 2.2 x 1.6 x 0.6 cm. Post-Debridement Measurements and Additional Note: Post-Debridement Measurements/Treatment PANCHITO - Nurse 1 - General Ulcer Assessment Start: 12/19/23 15:17 Freq: Status: Active Protocol: EVGENYEXIsidra Activity Type Activity Date Activity User E-sign Co-sign Detail Recorded Client Recorded Date Recorded By Document 12/19/23 15:17 DL Desktop 12/19/23 15:24 DL 12/19/23 15:17 WC - Today's Visit Information Type of service Follow-up Visit (Physician/SENIOR TRAINER ) Arrival Mode Ambulatory, Walker Arrival Mode (Other) knee walker Transfer Assistance None Patient Identification Verified (Name & Yes ) Patient Requires Transmission-Based No Precautions Height and Weight Body Mass Index (BMI) 62.5 BMI Classification Obese Vital Signs Temperature (97.8 F-99.1 F) 97.8 F Temperature Source Temporal Pulse Rate (60-100) 121 H Pulse Location Monitor Respiratory Rate (12-18) 22 H Respiratory rate source Observation Blood Pressure (90/60-120/80) 152/92 H Blood Pressure Mean (mm Hg) 112 Source Monitor History Since Last Visit- (Skip if this is Patient's initial visit) Have you changed medications since your No last visit? Any new allergies or adverse reactions No Had a fall/change in ADL's that may No increase risk of falls Signs or symptoms of abuse and/or No neglect since last visit Have you been in the hospital since your No last visit? Has dressing in place as prescribed Yes Has compression in place as prescribed Yes Has offloadiing in place as prescribed Yes Experienced any changes in pain level or No management Left Footwear Regular Shoe Right Footwear Regular Shoe Pain Scale: 0-10 Numeric Is Patient Pain Free? Yes PANCHITO - Nurse 1 - General Ulcer Measurement Start: 12/19/23 15:17 Freq: Status: Active Protocol: Activity Type Activity Date Activity User E-sign Co-sign Detail Recorded Client Recorded Date Recorded By Document 12/19/23 15:17 DL Desktop 12/19/23 15:24 DL 12/19/23 15:17 Wound Center Nurse 1 #1 R post LE- post-op cluster -Current Size (cm) - Length 2 -Current Size (cm) - Width 1.5 -Current Size (cm) - Depth 0.5 -Total Square Cm 3.0 -Exudate Amt Medium -Exudate Type Serosanguineous -Wound Margin Distinct, Outline Attached -Granulation Amt Medium (34-66%) -Granulation Quality Red -Necrosis Amt None Present (0 %) -Texture (Rachele-wound Skin Appearance) Scarring,Rash -Moisture (Rachele-wound Skin Appearance) No Abnormality -Color (Rachele-wound Skin Appearance) Erythema -Temperature (Rachele-wound Skin No Abnormality Appearance) (Pt Warm) -Ulcer Cleansing Soap and Water -Foul Odor after Cleansing No -Anesthetic Used 5% Lidocaine Gel Right Calf (cm) 65 Right Ankle (cm) 3.6 WC - Nurse 2 - General Ulcer CM Notes Start: 12/19/23 15:17 Freq: Status: Active Protocol: Activity Type Activity Date Activity User E-sign Co-sign Detail Recorded Client Recorded Date Recorded By Document 12/19/23 15:40 Laptop 12/19/23 15:43 12/19/23 15:40 Wound Center Nurse 2 #1 R post LE- post-op cluster -Time 15:40 -Correct Patient Yes -Correct Side, Site, Position Yes -Correct Procedure Yes -Procedure Performed Yes -Type of Procedure Debridement -Clinical Debridement Subcutaneous -Tissue Removed Subcutaneous -Post Debridement (cm) - Length 2.2 -Post Debridement (cm) - Width 1.6 -Post Debridement (cm) - Depth 0.6 -Total Square (Post) (cm) 3.52 -Area of Debridement (cm) - Length 2.2 -Area of Debridement (cm) - Width 1.6 -Total Square (Area) (cm) 3.52 -Tunneling No -Undermining/Tunneling No -Circular Undermining No -Wound/Ulcer Outcome Not Healed -Ulcer Cleansing Rinsed/ Irrigated with Saline -Foul Odor after Cleansing No -Bioengineered Tissue No -Bleeding Controlled with Pressure -Treatment Response Procedure Tolerated Well -Offloading No -Debridement - Subq, 1st 20sq cm Yes Pain Scale: 0-10 Numeric Is Patient Pain Free? Yes WC - Nurse 3 - General Ulcer D/C NN Start: 12/19/23 15:17 Freq: Status: Active Protocol: Activity Type Activity Date Activity User E-sign Co-sign Detail Recorded Client Recorded Date Recorded By Document 12/19/23 15:48 KW Desktop 12/19/23 15:49 KW 12/19/23 15:48 Wound Care Center Nurse 3 #1 R post LE- post-op cluster -Primary Dressing Applied Promogran Hannah Matter -Primary Dressing Covered/Secured with Dry Gauze, Secured with Tape -Promogran Hannah Matter 1 Right -Tubular Bandage Double Layer -Size of Tubigrip Used Size F -Size F ($) 2 Left -Tubular Bandage Double Layer -Size of Tubigrip Used Size F -Size F ($) 2 Pain Scale: 0-10 Numeric Is Patient Pain Free? Yes WC - Visit Discharge Discharge Condition Stable Ambulatory Status Ambulatory Transportation Private Auto Medication Reconcilliation completed & No provided to patient/care provider Clinical Summary of Care Provided Yes Assessment/Plan Assessment/Plan (1) Non-pressure chronic ulcer of unspecified part of right lower leg with fat layer exposed: CODE(S): L97.912 - Non-pressure chronic ulcer of unspecified part of rightlower leg with fat layer exposed PLAN: Patient was examined and evaluated. All findings were discussed with the patient. All questions were answered to the patient's satisfaction. Excisional debridement down to and including subcutaneous tissue with a number 3mm dermal curette to the right posterior calf. Predebridement measurement was 2.0 x 1.5 x 0.5 cm. Postdebridement measurement is 2.2 x 1.6 x 0.6 cm. Right lower extremities were cleaned and patted dry. The ulceration was dressed with moist Hannah and dry sterile dressing and a double layer Tubigrip. We will hold off on TheraSkin graft at this time and double layer wraps. We will attempt to try to further granulate in with collagen as the patient will benefit from a different type of wound care product at this time. Educated the patient to quit smoking and control her blood sugar which she is understanding of. We begin authorization to the patient's concerns for a negative pressure wound VAC to help fill in the the depth of the ulceration and to aid in her healing. The patient will be getting all her teeth extracted next Sunday and will follow-up in 2 weeks. Follow-up at the wound care center with Dr. Lord in 2 week. (2) Lymphedema, not elsewhere classified: CODE(S): I89.0 - Lymphedema, not elsewhere classified (3) Acute painful diabetic polyneuropathy: CODE(S): E11.42 - Type 2 diabetes mellitus with diabetic polyneuropathy 12/19/23 1617 <Electronically signed by Sebas Lord DPM> Cosigner Signature (if applicable): CC: ~ Signed [facility] Work Phone: [phone]) 584-172303-22-2024 Instructions* Patient Instructions* Zunilda Jaramillo APRN.CNP - 12/07/2023 3:19 PM EDT Decrease the Dulera to 1 puff, twice daily. I sent in more nystatin. Call dermatology to schedule: [facility] Get blood work sometime in the next week. Schedule with pain management. [facility] History of Present illness Narrative* Zunilda Jaramillo APRN.CNP - 12/07/2023 3:13 PM EDT Images from the original note were not included. SUBJECTIVE Nanci Rodriguez is a 43 year old female here today for a check up on her medical problems. Chief Complaint Patient presents with: F/U 6 months stomach issue: Lymphedema per pt HPI Nanci Rodriguez is a 43 year old female. Here today for follow up. Right leg still healing, had her procedure, following with wound center. Supposed to be non-weight bearing or very light weight bearing. Seeing the dentist soon. Getting her teeth removed and dentures. Smoking about a half a pack per day. Asthma is controlled currently. Thinks her Dulera is causing oral thrush. Keeps removing herCPAP in her sleep. Last hgba1c was 7.3%, iron was low. Taking her iron pills. Still issues with herabdomen and having sores, not healing despite antibitoics in the past. Her medications were reviewed today and her list is now up to date. Medications Current Outpatient Medications Medication Sig montelukast (SINGULAIR) 10 mg tablet Take 1 tablet by mouth daily at bedtime. blood sugar diagnostic (BLOOD GLUCOSE TEST) test strip Test blood sugar(s) one time daily. Dx: Type2 DM - Controlled E11.9 Insulin: No Lancets lancets Test blood sugar(s) once times daily. Dx: Type 2 DM - Controlled E11.9 Insulin: No promethazine (PHENERGAN) 12.5 mg tablet Take 1 tablet by mouth four times a day as needed for nausea/vomiting. furosemide (LASIX) 20 mg tablet Take 1-2 tablets by mouth once daily. cyclobenzaprine (FLEXERIL) 10 mg tablet Take 1 tablet by mouth three times a day as needed for muscle spasm. May make drowsy metFORMIN (GLUCOPHAGE) 500 mg tablet Take 2 tablets by mouth two times a day with meals. Take one additional 500 mg tab with breakfast or lunch until BS less than 250 glimepiride (AMARYL) 4 mg tablet Take 1 tablet by mouth daily with breakfast. Dose change, take onedaily albuterol HFA (VENTOLIN HFA) 90 mcg/actuation inhaler Inhale 2 Puffs as instructed every 4 hours asneeded. ferrous sulfate 325 mg (65 mg iron) tablet Take 1 tablet by mouth every Sunday, Sunday, and Sunday. SUMAtriptan (IMITREX) 25 mg tablet Take 1 tablet by mouth at onset of headache and may repeat in 2 hrs if needed. topiramate (TOPAMAX) 100 mg tablet Take 1 tablet by mouth two times a day. lansoprazole (PREVACID) 30 mg capsule Take 1 capsule by mouth daily before breakfast. pramipexole (MIRAPEX) 1.5 mg tablet Take 1 tablet by mouth daily at bedtime. Albuterol Sulfate 1.25 mg/3 mL nebulizer solution Use 1 Ampule via nebulizer every 4 hours as needed for wheezing/shortness of breath. ARIPiprazole (ABILIFY) 5 mg tablet Take 1 tablet by mouth once daily. CPAP Continue CPAP @ 15 cm of water with humidification. Mask (per patient preference) optional chin strap (if indicated) , filters, tubing, humidifier and lifetime supplies. G47.33 MARIA TERESA on CPAP Blood-Glucose Meter (TRUE METRIX GLUCOSE METER) Use DIRECTED. Dx:Diabetes 11.9 loratadine (CLARITIN) 10 mg tablet Take 1 tablet by mouth once daily. FREESTYLE FREEDOM LITE monitoring kit USE DIRECTED CPAP Needs lifetime supplies (mask, hoses, headgear, filters, water chamber) G47.33 (already has CPAP) lamoTRIgine (LAMICTAL) 200 mg tablet Take 1 [...] mouth once daily. Managed [facility] diphenhydrAMINE (BENADRYL) 25 mg capsule Take 1 capsule by mouth every 6 hours as needed for itching/rash. nystatin (MYCOSTATIN) 100,000 unit/mL suspension Take 5 mL by mouth four times daily. 1tsp swish inmouth for several minutes, then swallow (or expectorate) 4 times daily until gone. mometasone-formoterol (DULERA) 50-5 mcg/actuation HFA aerosol inhaler Inhale 1 Puff as instructed two times a day. Chlorhexidine Gluconate (PERIDEX) 0.12 % solution Use 15 mL as instructed two times a day. Rinse around mouth for 30 seconds then expectorate silver sulfADIAZINE (SILVADENE) 1 % cream Apply 1 application to affected area once daily. bacitracin 500 unit/gram ointment APPLY TO THE AFFECTED AREA(S) EVERY DAY urea (CARMOL) 40 % crea Apply 1 application to affected area twice daily. No current facility-administered medications for this visit. ALLERGIES Allergen Reactions Penicillins Itching, Hives Melatonin Rash, Hives Wellbutrin [Bupropi* Intolerance Dry mouth--severe, intolerable ACTIVE PROBLEM LIST Obesity, Class III, BMI >= 40 - 09/18/2023 Hyperlipidemia With Target Ldl Less Than 100 - 03/16/2020 Restless Leg Syndrome - 03/16/2020 Atypical Chest Pain - 02/28/2018 Comment: Abnormal stress / SPECT per [facility] notes. Normal coronaries on heart catheterization [facility] 02/26/2018 Dr. Brooks Morbid Obesity (Hcc) - 09/27/2016 Umbilical Hernia Without Obstruction Or Gangrene - 09/22/2016 Diabetes Mellitus Type 2, Controlled, Without Complications ([facility]) - 12/30/2015 Lumbar Spondylosis - 02/17/2013 Ddd (Degenerative Disc Disease), Lumbar - 02/17/2013 Chronic Radicular Low Back Pain - 07/17/2012 Papanicolaou Smear of Cervix With Low Grade Squamous Intraepithelial Lesion (Lgsil) - 12/26/2011 Moderate depressed bipolar I disorder ([facility]) - 12/26/2011 Migraine Without Aura - 03/29/2006 Asthma Allergic Rhinitis Social History Tobacco Use Smoking status: Every Day Packs/day: 1.00 Years: 8.00 Additional pack years: 0.00 Total pack years: 8.00 Types: Cigarettes Start date: 08/17/1998 Smokeless tobacco: Never Substance Use Topics Alcohol use: Never Drug use: No Comment: Past history of Marjiuana use Review of Systems Constitutional: Negative. Respiratory: Negative. Cardiovascular: Negative. OBJECTIVE BP 138/80 Pulse 102 Resp 20 Wt 374 lb 3.2 oz (169.7kg) SpO2 98% LMP 11/19/2023 Physical Exam Vitals and nursing note reviewed. [...] refill takes less than 2 seconds. Comments: Large area of abdomen with scattered areas in various healing, slight erythema Neurological: General: No focal deficit present. Mental [...] memory normal. Judgment: Judgment normal. ASSESSMENT/PLAN: 1. Controlled type 2 diabetes mellitus without complication, without long-term current use of insulin (HCC) - ICD9: 250.00, ICD10: E11.9 (primary diagnosis) - Controlled - Continue current medications - Counseled on healthy diet and regular exercise - Discussed need for and benefit of weight loss. BMI 65.25 kg/(m^2) - COMP METABOLIC PANEL 2. Wound of right lower extremity, subsequent encounter - ICD9: V58.89, 894.0, ICD10: S81.801D Following with wound center. 3. Chronic dental pain - ICD9: 525.9, 338.29, ICD10: K08.9, G89.29 Seeing dentist. 4. Tobacco use disorder - ICD9: 305.1, ICD10: F17.200 - Cessation encouraged. - Physiologic and physical aspects of tobacco addiction as well as strategies for quitting were discussed. - Counseling was given focusing on the harmful effects of this addiction especially given the patient's medical condition(s) which will be worsened because of the chemicals in tobacco. 5. Morbid obesity (HCC) - ICD9: 278.01, ICD10: E66.01 6. Iron deficiency anemia, unspecified iron deficiency anemia type - ICD9: 280.9, ICD10: D50.9 On iron supplementation, repeat labs. - CBC + DIFF - IRON + TIBC - COMP METABOLIC PANEL - FERRITIN BLD 7. Mouth pain - ICD9: 528.9, ICD10: K13.79 Okay for another round of nystatin, will decrease Dulera to see if helpful - NYSTATIN 100,000 UNIT/ML ORAL SUSPENSION 8. Intermittent asthma without complication, unspecified asthma severity - ICD9: 493.90, ICD10: J45.20 - Mild intermittent asthma stable - Avoidance of triggers recommended - Decrease Dulera - DULERA 50 MCG-5 MCG/ACTUATION HFA AEROSOL INHALER 9. Skin disorder - ICD9: 709.9, ICD10: L98.9 - CONSULT TO DERMATOLOGY 10. Chronic radicular low back pain - ICD9: 724.4, 338.29, ICD10: M54.16, G89.29 Wants to see pain management, previously referred but did not schedule. Portions of this note have been entered by ancillary staff. I have reviewed and when necessary edited, so that they are an adequate record of my encounter with this patient Please note that parts of this document were created using voice recognition software and therefore may contain grammatical errors. Patient verbalizes understanding of instructions from today's visit and in agreement with treatmentplan. Questions answered. Agrees to call the office [...] as well as compliance with taking medications. Age- appropriate health preventative measures were discussed. Return if symptoms worsen or fail to improve, for Keep next scheduled appointment.. Zunilda Jaramillo APRN-NARENDRA documented in this encounterDayton [facility]-20-[facility]24 Progress note Author Sebas Lord [facility] December 05, 2023 9:02pm Note Date/Time December 05, 2023 9:0 2pm [facility] [address] [place] [id number] Progress Note - Wound Care 12/05/232058 MR#: [id number] Acct: [id number] Name: NANCI RODRIGUEZ Rep #:[id number] : 1980 43 From: Sebas BEST PCP: Dr. Rodri Chauhan MD Status:RE G RCR Location: History of Present Illness Date of Service: 12/05/23 Chief Complaint: Ulceration right posterior leg History of Wound: Ulceration right posterior leg Subjective Subjective Ms. Rodriguez is a 43-year-old diabetic female presenting to the wound care center today for follow-up and evaluation status post incision and drainage with delayed primary closure to the posterior aspect of the right calf full-thicknessulceration. Date of surgery: 09/28/2023. Patient did admit to being noncompliant during her postoperative phase. She is presenting today for follow-up and evaluation of skin graft substitute to the posterior aspect of theright calf. She has been nonweightbearing using a knee scooter she has kept herwrap clean dry and intact. Denies any constitutional symptoms. Patient states she is on clindamycin and steroids for her upcoming dental surgery. Denies any other pedal complaints at this time. Objective Data Objective Data Vital Signs: Vital Signs Temp Pulse Resp BP O2 Del Method 97.7 F L 112 H 20 H 171/85 H Room Air 12/05/23 14:51 12/05/23 14:51 12/05/23 14:51 12/05/23 14:51 12/05/23 14:51 Oxygen Delivery Method Room Air Weight: 160.223 kg Body Mass Index (BMI) 62.5 Physical Exam Narrative Vascular: DP and PT pulses palpable. CFT is brisk. Nonpitting edema appreciated to right lower extremity. No erythema or proximal streaking is appreciated. Neurological: Light touch intact. Patient response to painful stimuli. Dermatological: Evidence of surgical wound dehiscence secondary to nonweightbearing and lack of medical compliance. Full-thickness ulceration measures 2.3 x 2.8 x 0.7 cm. Wound base is granular nature with sanguinous drainage after debridement. No evidence of erythema or proximal streaking. Cannot rule out infection at this time. Excisional debridement down to and including subcutaneous tissue with a number 3mm dermal curette to the right posterior calf. Predebridement measurement was 2.1 x 2.6 x 0.5 cm. Postdebridement measurement is 2.3 x 2.8 x 0.7 cm. Application of TheraSkin skin substitute measuring 1.75 cm x 1.75 cm, 3 cm?, wasapplied to the full-thickness ulceration to the right posterior calf after debridement. Sixth application, 100% of the TheraSkin was used. The TheraSkin was secured with Dermabond followed by nonadherent bandage secured in place with Steri-Strips followed by bolster dressing as well as a 3M compression wrap. Musculoskeletal: No pain with calf compression. Mild pain to palpation full- thickness ulceration right calf. Debridement Note Debridement Note Debridement Free Text: Excisional debridement down to and including subcutaneoustissue with a number 3 mm dermal curette to the right posterior calf. Predebridement measurement was 2.1 x 2.6 x 0.5 cm. Postdebridement measurement is 2.3 x 2.8 x 0.7 cm. Application of TheraSkin skin substitute measuring 1.75 cm x 1.75 cm, 3 cm?, wasapplied to the full-thickness ulceration to the right posterior calf after debridement. Sixth application, 100% of the TheraSkin was used. The TheraSkin was secured with Dermabond followed by nonadherent bandage secured in place with Steri-Strips followed by bolster dressing as well as a 3M compression wrap. Post-Debridement Measurements and Additional Note: Post-Debridement Measurements/Treatment WC - Nurse 1 - General Ulcer Assessment Start: 11/19/23 14:23 Freq: Status: Active Protocol: WATSON Activity Type Activity Date Activity User E-sign Co-sign Detail Recorded Client Recorded Date Recorded By Document 11/19/23 14:23 KW Desktop 11/19/23 14:55 KW Document 11/21/23 15:02 DL Desktop 11/21/23 15:11 DL Document 11/26/23 14:29 [facility] [id number] 11/26/23 14:31 BMF Document 11/28/23 15:26 GM Desktop 11/28/23 15:36 GM Document 12/03/23 14:01 KW Desktop 12/03/23 14:11 KW Document 12/05/23 14:51 KW Desktop 12/05/23 15:00 KW 11/19/23 11/21/23 11/26/23 14:23 15:02 14:29 - Today's Visit Information Type of service Nurse-only Follow-up Visit Nurse-only Visit (Physician/SENIOR TRAINER Visit ) Arrival Mode Ambulatory, Ambulatory, Ambulatory, Other Walker Walker Arrival Mode (Other) knee roller knee walker Transfer Assistance Stretcher None Transfer Assist (Other) Patient Identification Verified (Name & Yes Yes Yes ) Patient Requires Transmission-Based No No Precautions Finger Stick Blood Sugar(mg/dl) (if not checked indicated): Height and Weight Body Mass Index (BMI) 62.5 62.5 62.5 BMI Classification Obese Obese Obese Vital Signs Temperature (97.8 F-99.1 F) 96.6 F L 96.7 F L 97.3 F L Temperature Source Temporal Temporal Temporal Pulse Rate (60-100) 105 H 101 H 109 H Pulse Location Monitor Monitor Monitor Respiratory Rate (12-18) 18 24 H 16 Respiratory rate source Observation Observation Oxygen Delivery Method Room Air Room Air Blood Pressure (90/60-120/80) 150/81 H 156/90 H 141/88 H Blood Pressure Mean (mm Hg) 104 112 105 Source Monitor Monitor Monitor Position Semi-Fowlers Sitting Blood Pressure Location Left Arm Left Forearm History Since Last Visit- (Skip if this is Patient's initial visit) Have you changed medications since your No No No last visit? Any new allergies or adverse reactions No No No Had a fall/change in ADL's that may No No No increase risk of falls Signs or symptoms of abuse and/or No No No neglect since last visit Have you been in the hospital since your No No No last visit? Has dressing in place as prescribed Yes Yes Yes Has compression in place as prescribed Yes Yes Yes Has offloadiing in place as prescribed Yes Yes N/A Experienced any changes in pain level or No No No management Left Footwear Slipper Regular Shoe Slipper Right Footwear Slipper Regular Shoe Slipper Pain Scale: 0-10 Numeric Is Patient Pain Free? Yes Yes Yes 11/28/23 12/03/23 12/05/23 15:26 14:01 14:51 WC - Today's Visit Information Type of service Follow-up Visit Nurse-only Follow-up Visit (Physician/SENIOR TRAINER Visit (Physician/SENIOR TRAINER ) ) Arrival Mode Ambulatory Ambulatory, Ambulatory, Other Other Arrival Mode (Other) knee roller knee roller Transfer Assistance Other Transfer Assist (Other) knee roller Patient Identification Verified (Name & Yes Yes Yes ) Patient Requires Transmission-Based No Precautions Finger Stick Blood Sugar(mg/dl) (if indicated): Height and Weight Body Mass Index (BMI) 62.5 62.5 62.5 BMI Classification Obese Obese Obese Vital Signs Temperature (97.8 F-99.1 F) 97.2 F L 97.3 F L 97.7 F L Temperature Source Temporal Temporal Oral Pulse Rate (60-100) 107 H 112 H 112 H Pulse Location Monitor Monitor Monitor Respiratory Rate (12-18) 18 18 20 H Respiratory rate source Observation Observation Observation Oxygen Delivery Method Room Air Room Air Room Air Blood Pressure (90/60-120/80) 152/85 H 140/80 H 171/85 H Blood Pressure Mean (mm Hg) 107 100 113 Source Monitor Monitor Monitor Position Sitting Semi-Fowlers Blood Pressure Location Left Forearm Left Arm Left Forearm History Since Last Visit- (Skip if this is Patient's initial visit) Have you changed medications since your No No No last visit? Any new allergies or adverse reactions No No No Had a fall/change in ADL's that may No Yes No increase risk of falls Signs or symptoms of abuse and/or No No No neglect since last visit Have you been in the hospital since your No No No last visit? Has dressing in place as prescribed Yes Yes Yes Has compression in place as prescribed Yes Yes Yes Has offloadiing in place as prescribed Yes Yes Yes Experienced any changes in pain level or No No No management Left Footwear Regular Shoe Regular Shoe Slipper Right Footwear Regular Shoe Regular Shoe Slipper Pain Scale: 0-10 Numeric Is Patient Pain Free? Yes Yes Yes WC - Nurse 1 - General Ulcer Measurement Start: 11/19/23 14:23 Freq: Status: Active Protocol: Activity Type Activity Date Activity User E-sign Co-sign Detail Recorded Client Recorded Date Recorded By Document 11/21/23 15:02 DL Desktop 11/21/23 15:11 DL Document 11/26/23 14:29 [facility] [id number] 11/26/23 14:31 [facility] Document 11/28/23 15:26 GM Desktop 11/28/23 15:36 GM Document 12/03/23 14:01 KW Desktop 12/03/23 14:11 KW Document 12/05/23 14:51 KW Desktop 12/05/23 15:00 KW 11/21/23 11/26/23 11/28/23 15:02 14:29 15:26 Wound Center Nurse 1 #1 R post LE- post-op cluster -Current Size (cm) - Length 2 1.2 -Current Size (cm) - Width 1.1 0.5 -Current Size (cm) - Depth 0.5 0.8 -Total Square Cm 2.2 0.60 -Photo Taken No -Epithelialization Small 1-33% -Circular Undermining No -Exudate Amt Medium Medium -Exudate Type Serosanguineous Serosanguineous -Wound Margin Distinct, Distinct, Outline Outline Attached Attached -Granulation Amt Large (67-100%) Small (1-33%) -Granulation Quality Red [place] -Necrosis Amt Small (1-33%) None Present (0 %) -Necrotic Tissue Type Adherent Slough -Structure Exposed N/A N/A -Texture (Rachele-wound Skin Appearance) Scarring Assessed, Scarring -Moisture (Rachlee-wound Skin Appearance) No Abnormality Assessed -Color (Rachele-wound Skin Appearance) No Abnormality Assessed -Temperature (Rachele-wound Skin No Abnormality Appearance) (Pt Warm) -Tenderness on Palpation (Rachele-wound No Skin Appearance) -Ulcer Cleansing Soap and Water Soap and Water -Foul Odor after Cleansing No No -Anesthetic Used 5% Lidocaine 5% Lidocaine Gel Gel Lower Limb Edema Present Yes Right Calf (cm) 63.3 65.8 64.2 Right Ankle (cm) 30.3 32.5 32.0 12/03/23 12/05/23 14:01 14:51 Wound Center Nurse 1 #1 R post LE- post-op cluster -Current Size (cm) - Length 2.1 -Current Size (cm) - Width 1.1 -Current Size (cm) - Depth 0.7 -Total Square Cm 2.31 -Photo Taken -Epithelialization -Circular Undermining -Exudate Amt Small -Exudate Type Serosanguineous -Wound Margin Distinct, Outline Attached -Granulation Amt Large (67-100%) -Granulation Quality [place] -Necrosis Amt -Necrotic Tissue Type -Structure Exposed -Texture (Rachele-wound Skin Appearance) Assessed, Localized Edema -Moisture (Rachele-wound Skin Appearance) Assessed -Color (Rachele-wound Skin Appearance) Assessed -Temperature (Rachele-wound Skin No Abnormality Appearance) (Pt Warm) -Tenderness on Palpation (Rachele-wound Skin Appearance) -Ulcer Cleansing Soap and Water -Foul Odor after Cleansing No -Anesthetic Used 5% Lidocaine Gel Lower Limb Edema Present Right Calf (cm) 62.2 63.8 Right Ankle (cm) 31 32 - Nurse 2 - General Ulcer CM Notes Start: 11/19/23 14:23 Freq: Status: Active Protocol: Activity Type Activity Date Activity User E-sign Co-sign Detail Recorded Client Recorded Date Recorded By Document 11/21/23 15:41 Desktop 11/21/23 15:42 Document 11/28/23 15:48 Laptop 11/28/23 15:51 Document 12/05/23 15:22 Laptop 12/05/23 15:26 JF 11/21/23 11/28/23 12/05/23 15:41 15:48 15:22 Wound Center Nurse 2 #1 R post LE- post-op cluster -Time 15:41 15:49 15:23 -Correct Patient Yes Yes Yes -Correct Side, Site, Position Yes Yes Yes -Correct Procedure Yes Yes Yes -Procedure Performed Yes Yes Yes -Type of Procedure Debridement Debridement Debridement -Clinical Debridement Subcutaneous Subcutaneous Subcutaneous -Tissue Removed Subcutaneous Subcutaneous Subcutaneous -Post Debridement (cm) - Length 1.7 2.0 2.3 -Post Debridement (cm) - Width 2.0 2.3 2.8 -Post Debridement (cm) - Depth 0.5 0.7 0.7 -Total Square (Post) (cm) 3.40 4.60 6.44 -Area of Debridement (cm) - Length 1.7 2.0 2.3 -Area of Debridement (cm) - Width 2.0 2.3 2.8 -Total Square (Area) (cm) 3.40 4.60 6.44 -Tunneling No No No -Undermining/Tunneling No No No -Circular Undermining No No No -Wound/Ulcer Outcome Not Healed Not Healed Not Healed -Ulcer Cleansing Rinsed/ Rinsed/ Rinsed/ Irrigated with Irrigated with Irrigated with Saline Saline Saline -Foul Odor after Cleansing No No No -Bioengineered Tissue Yes Yes Yes -Type of Bioengineered Tissue Theraskin Theraskin Theraskin -Expiration Date 07/03/28 12/12/27 07/10/28 -Product Lot Number [id number] -Percent Used 100 100 100 -Lot number of Saline Used [id number] -Bleeding Controlled with Pressure Pressure Pressure -Treatment Response Procedure Procedure Procedure Tolerated Well Tolerated Well Tolerated Well -Offloading No Yes Yes -Type of Offloading Knee Walker Knee Walker -Debridement - Subq, 1st 20sq cm No No No -Apply Skin Sub - 1st 25 sq cm - Legs 1 1 1 -Theraskin - 3TS (3 SQ CM) (per sq cm) 3 3 3 Pain Scale: 0-10 Numeric Is Patient Pain Free? Yes Yes Yes WC - Nurse 3 - General Ulcer D/C NN Start: 11/19/23 14:23 Freq: Status: Active Protocol: Activity Type Activity Date Activity User E-sign Co-sign Detail Recorded Client Recorded Date Recorded By Document 11/19/23 14:55 KW Desktop 11/19/23 14:56 KW Document 11/21/23 15:58 BMF Desktop 11/21/23 16:00 BMF Document 11/26/23 14:29 BMF [id number] 11/26/23 14:31 BMF Document 11/28/23 16:06 KW Desktop 11/28/23 16:06 KW Edit Result 11/28/23 16:06 KW (1) [id number] 12/03/23 16:14 JF Document 12/03/23 14:01 KW Desktop 12/03/23 14:11 KW Document 12/05/23 15:39 DL Desktop 12/05/23 15:41 DL (1) Right - Multi-Layered Wrap Application Multi-Layer Comp - => Multi-Layer Comp - Left ($) => Right ($) 11/19/23 11/21/23 11/26/23 14:55 15:58 14:29 Wound Care Center Nurse 3 #1 R post LE- post-op cluster -Ulcer Cleansing Soap and Water -Foul Odor after Cleansing -Primary Dressing Applied Optilok 6.5x10 -Other Dressing [employer]TE[employer]RA/ theraskin left THERASKIN in place -Primary Dressing Covered/Secured with Dry Gauze & Roll Gauze, Secured with Tape -Other Covering ABD abd -Optilok 6.5x10 1 -Promogran Hannah Matter Left -Tubular Bandage -Size of Tubigrip Used -Size F ($) Right -Multi-Layered Wrap Application Multi-Layer Multi-Layer Multi-Layer Comp - Right ($ Comp - Right ($ Comp - Right ($ ) ) ) Treatment Response Procedure Procedure Tolerated Well Tolerated Well Vital Signs Temperature (97.8 F-99.1 F) 97.3 F L Temperature Source Temporal Pulse Rate (60-100) 109 H Pulse Location Monitor Respiratory Rate (12-18) 16 Respiratory rate source Observation Oxygen Delivery Method Room Air Blood Pressure (90/60-120/80) 141/88 H Blood Pressure Mean (mm Hg) 105 Source Monitor Position Sitting Blood Pressure Location Left Forearm Pain Scale: 0-10 Numeric Is Patient Pain Free? Yes Yes Yes WC - Visit Discharge Discharge Condition Stable Stable Stable Ambulatory Status Ambulatory Ambulatory, Ambulatory, Walker Walker Transportation Private Auto Private Auto Private Auto Accompanied by KNEE WALKER knee walker Medication Reconcilliation completed & No provided to patient/care provider Clinical Summary of Care Provided Yes Notes: uses a knee roller 11/28/23 12/03/23 12/05/23 16:06 14:01 15:39 Wound Care Center Nurse 3 #1 R post LE- post-op cluster -Ulcer Cleansing Soap and Water -Foul Odor after Cleansing No -Primary Dressing Applied Promogran Hannah Matter -Other Dressing hydrogel -Primary Dressing Covered/Secured with Dry Gauze Dry Gauze & Roll Gauze, Secured with Tape -Other Covering -Optilok 6.5x10 -Promogran Hannah Matter 1 Left -Tubular Bandage Double Layer -Size of Tubigrip Used Size F -Size F ($) 2 Right -Multi-Layered Wrap Application Multi-Layer Multi-Layer Multi-Layer Comp - Right ($ Comp - Right ($ Comp - Right ($ ) ) ) Treatment Response Procedure Tolerated Well Vital Signs Temperature (97.8 F-99.1 F) 97.3 F L Temperature Source Temporal Pulse Rate (60-100) 112 H Pulse Location Monitor Respiratory Rate (12-18) 18 Respiratory rate source Observation Oxygen Delivery Method Room Air Blood Pressure (90/60-120/80) 140/80 H Blood Pressure Mean (mm Hg) 100 Source Monitor Position Blood Pressure Location Left Arm Pain Scale: 0-10 Numeric Is Patient Pain Free? Yes Yes Yes WC - Visit Discharge Discharge Condition Stable Stable Stable Ambulatory Status Ambulatory Ambulatory Ambulatory, Walker Transportation Private Auto Private Auto Private Auto Accompanied by Medication Reconcilliation completed & No No provided to patient/care provider Clinical Summary of Care Provided Yes Yes Notes: pt uses knee Arianna Vikas roller applied dressing today in clinic. Assessment/Plan Assessment/Plan (1) Non-pressure chronic ulcer of unspecified part of right lower leg with fat layer exposed: CODE(S): L97.912 - Non-pressure chronic ulcer of unspecified part of rightlower leg with fat layer exposed PLAN: Patient was examined and evaluated. All findings were discussed with the patient. All questions were answered to the patient satisfaction. Excisional debridement down to and including subcutaneous tissue with a number 3mm dermal curette to the right posterior calf. Predebridement measurement was 2.1 x 2.6 x 0.5 cm. Postdebridement measurement is 2.3 x 2.8 x 0.7 cm. Application of TheraSkin skin substitute measuring 1.75 cm x 1.75 cm, 3 cm?, wasapplied to the full-thickness ulceration to the right posterior calf after debridement. Sixth application, 100% of the TheraSkin was used. The TheraSkin was secured with Dermabond followed by nonadherent bandage secured in place with Steri-Strips followed by bolster dressing as well as a 3M compression wrap. Patient will continue to take her clindamycin and steroids for upcoming dental procedure. Patient will follow-up in 1 week for nursing visits then follow-up with Dr. Lord on week 2 for continued evaluation and care. Patient will follow-up with Dr. Lord at the wound care center in 2 week. (2) Lymphedema, not elsewhere classified: CODE(S): I89.0 - Lymphedema, not elsewhere classified 12/05/232101 <Electronically signed by Sebas Lord DPM> Cosigner Signature (if applicable): CC: ~ Signed [facility] Work Phone: [phone] Miscellaneous Notes* Telephone Encounter - Rodri Chauhan MD - 12/03/2023 6:31 PM EDT Okayed * Telephone Encounter - Vianney Elise RN - 12/03/2023 4:49 PM EDT Patient has been identified by name and date of : Yes, Vianney Elise RN Date 12/03/2023 Time 4:51 pm Patient phones for refill(s): Requested Prescriptions Pending Prescriptions Disp Refills montelukast (SINGULAIR) 10 mg tablet 30 tablet 11 Sig: Take 1 tablet by mouth daily at bedtime. Date of last office visit in primary care: 09/18/2023 Date of next office visit in primary care: 12/07/2023 Please advise. Thank you. Vianney Elise RN. documented in this encounterDayton [facility] Progress note Author Sebas Lord [facility] November 28, 2023 4:38pm Note Date/Time November 28, 2023 4:3 8pm [facility] [address] [place] [id number] Progress Note - Wound Care 11/28/23 1636 MR#: [id number] Acct: [id number] Name: NANCI RODRIGUEZ Rep #:[id number] : 1980 43 From: Sebas BEST PCP: Dr. Rodri Chauhan MD Status:RE G RCR Location: History of Present Illness Date of Service: 11/28/23 Chief Complaint: Ulceration right posterior leg History of Wound: Ulceration right posterior leg Subjective Subjective Ms. Rodriguez is a 43-year-old diabetic female presenting to the wound care center today for follow-up and evaluation status post incision and drainage with delayed primary closure to the posterior aspect of the right calf full-thicknessulceration. Date of surgery: 09/28/2023. Patient did admit to being noncompliant during her postoperative phase. She is presenting today for follow-up and evaluation of skin graft substitute to the posterior aspect of theright calf. She has been nonweightbearing using a knee scooter she has kept herwrap clean dry and intact. Denies any constitutional symptoms. She does admit to falling at home bumping her face but did not blackout or see stars and she did not present to the emergency department for evaluation. She is not on a blood thinner at this time. No other pedal complaints at this time. Objective Data Objective Data Vital Signs: Vital Signs Temp Pulse Resp BP O2 Del Method 97.2 F L 107 H 18 152/85 H Room Air 11/28/23 15:26 11/28/23 15:26 11/28/23 15:26 11/28/23 15:26 11/28/23 15:26 Oxygen Delivery Method Room Air Weight: 160.223 kg Body Mass Index (BMI) 62.5 Physical Exam Narrative Vascular: DP and PT pulses palpable. CFT is brisk. Nonpitting edema appreciated to right lower extremity. No erythema or proximal streaking is appreciated. Neurological: Light touch intact. Patient response to painful stimuli. Dermatological: Evidence of surgical wound dehiscence secondary to nonweightbearing and lack of medical compliance. Full-thickness ulceration measures 2.0 x2.3 x 0.7 cm. Wound base is granular nature with sanguinous drainage after debridement. No evidence of erythema or proximal streaking. Cannot rule out infection at this time. Excisional debridement down to and including subcutaneous tissue with a number 3mm dermal curette to the right posterior calf. Predebridement measurement was 1.8 x 2.5 x 0.5 cm. Postdebridement measurement is 2.0 x 2.7 x 0.7 cm. Application of TheraSkin skin substitute measuring 1.75 cm x 1.75 cm, 3 cm?, wasapplied to the full-thickness ulceration to the right posterior calf after debridement. Fifth application, 100% of the TheraSkin was used. The TheraSkin was secured with Dermabond followed by nonadherent bandage secured in place with Steri-Strips followed by bolster dressing as well as a 3M compression wrap. Musculoskeletal: No pain with calf compression. Mild pain to palpation full- thickness ulceration right calf. Debridement Note Debridement Note Debridement Free Text: Excisional debridement down to and including subcutaneoustissue with a number 3 mm dermal curette to the right posterior calf. Predebridement measurement was 1.8 x 2.5 x 0.5 cm. Postdebridement measurement is 2.0 x 2.7 x 0.7 cm. Application of TheraSkin skin substitute measuring 1.75 cm x 1.75 cm, 3 cm?, wasapplied to the full-thickness ulceration to the right posterior calf after debridement. Fifth application, 100% of the TheraSkin was used. The TheraSkin was secured with Dermabond followed by nonadherent bandage secured in place with Steri-Strips followed by bolster dressing as well as a 3M compression wrap. Post-Debridement Measurements and Additional Note: Post-Debridement Measurements/Treatment PANCHITO - Nurse 1 - General Ulcer Assessment Start: 11/19/23 14:23 Freq: Status: Active Protocol: WATSON Activity Type Activity Date Activity User E-sign Co-sign Detail Recorded Client Recorded Date Recorded By Document 11/19/23 14:23 KW Desktop 11/19/23 14:55 KW Document 11/21/23 15:02 DL Desktop 11/21/23 15:11 DL Document 11/26/23 14:29 [facility] [id number] 11/26/23 14:31 BMF Document 11/28/23 15:26 GM Desktop 11/28/23 15:36 GM 11/19/23 11/21/23 11/26/23 14:23 15:02 14:29 WC - Today's Visit Information Type of service Nurse-only Follow-up Visit Nurse-only Visit (Physician/SENIOR TRAINER Visit ) Arrival Mode Ambulatory, Ambulatory, Ambulatory, Other Walker Walker Arrival Mode (Other) knee roller knee walker Transfer Assistance Stretcher None Transfer Assist (Other) Patient Identification Verified (Name & Yes Yes Yes ) Patient Requires Transmission-Based No No Precautions Finger Stick Blood Sugar(mg/dl) (if not checked indicated): Height and Weight Body Mass Index (BMI) 62.5 62.5 62.5 BMI Classification Obese Obese Obese Vital Signs Temperature (97.8 F-99.1 F) 96.6 F L 96.7 F L 97.3 F L Temperature Source Temporal Temporal Temporal Pulse Rate (60-100) 105 H 101 H 109 H Pulse Location Monitor Monitor Monitor Respiratory Rate (12-18) 18 24 H 16 Respiratory rate source Observation Observation Oxygen Delivery Method Room Air Room Air Blood Pressure (90/60-120/80) 150/81 H 156/90 H 141/88 H Blood Pressure Mean (mm Hg) 104 112 105 Source Monitor Monitor Monitor Position Semi-Fowlers Sitting Blood Pressure Location Left Arm Left Forearm History Since Last Visit- (Skip if this is Patient's initial visit) Have you changed medications since your No No No last visit? Any new allergies or adverse reactions No No No Had a fall/change in ADL's that may No No No increase risk of falls Signs or symptoms of abuse and/or No No No neglect since last visit Have you been in the hospital since your No No No last visit? Has dressing in place as prescribed Yes Yes Yes Has compression in place as prescribed Yes Yes Yes Has offloadiing in place as prescribed Yes Yes N/A Experienced any changes in pain level or No No No management Left Footwear Slipper Regular Shoe Slipper Right Footwear Slipper Regular Shoe Slipper Pain Scale: 0-10 Numeric Is Patient Pain Free? Yes Yes Yes 11/28/23 15:26 WC - Today's Visit Information Type of service Follow-up Visit (Physician/SENIOR TRAINER ) Arrival Mode Ambulatory Arrival Mode (Other) Transfer Assistance Other Transfer Assist (Other) knee roller Patient Identification Verified (Name & Yes ) Patient Requires Transmission-Based No Precautions Finger Stick Blood Sugar(mg/dl) (if indicated): Height and Weight Body Mass Index (BMI) 62.5 BMI Classification Obese Vital Signs Temperature (97.8 F-99.1 F) 97.2 F L Temperature Source Temporal Pulse Rate (60-100) 107 H Pulse Location Monitor Respiratory Rate (12-18) 18 Respiratory rate source Observation Oxygen Delivery Method Room Air Blood Pressure (90/60-120/80) 152/85 H Blood Pressure Mean (mm Hg) 107 Source Monitor Position Sitting Blood Pressure Location Left Forearm History Since Last Visit- (Skip if this is Patient's initial visit) Have you changed medications since your No last visit? Any new allergies or adverse reactions No Had a fall/change in ADL's that may No increase risk of falls Signs or symptoms of abuse and/or No neglect since last visit Have you been in the hospital since your No last visit? Has dressing in place as prescribed Yes Has compression in place as prescribed Yes Has offloadiing in place as prescribed Yes Experienced any changes in pain level or No management Left Footwear Regular Shoe Right Footwear Regular Shoe Pain Scale: 0-10 Numeric Is Patient Pain Free? Yes - Nurse 1 - General Ulcer Measurement Start: 11/19/23 14:23 Freq: Status: Active Protocol: Activity Type Activity Date Activity User E-sign Co-sign Detail Recorded Client Recorded Date Recorded By Document 11/21/23 15:02 DL Desktop 11/21/23 15:11 DL Document 11/26/23 14:29 [facility] [id number] 11/26/23 14:31 BM Document 11/28/23 15:26 GM Desktop 11/28/23 15:36 GM 11/21/23 11/26/23 11/28/23 15:02 14:29 15:26 Wound Center Nurse 1 #1 R post LE- post-op cluster -Current Size (cm) - Length 2 1.2 -Current Size (cm) - Width 1.1 0.5 -Current Size (cm) - Depth 0.5 0.8 -Total Square Cm 2.2 0.60 -Photo Taken No -Epithelialization Small 1-33% -Circular Undermining No -Exudate Amt Medium Medium -Exudate Type Serosanguineous Serosanguineous -Wound Margin Distinct, Distinct, Outline Outline Attached Attached -Granulation Amt Large (67-100%) Small (1-33%) -Granulation Quality Red [place] -Necrosis Amt Small (1-33%) None Present (0 %) -Necrotic Tissue Type Adherent Slough -Structure Exposed N/A N/A -Texture (Rahcele-wound Skin Appearance) Scarring Assessed, Scarring -Moisture (Rachele-wound Skin Appearance) No Abnormality Assessed -Color (Rachele-wound Skin Appearance) No Abnormality Assessed -Temperature (Rachele-wound Skin No Abnormality Appearance) (Pt Warm) -Tenderness on Palpation (Rachele-wound No Skin Appearance) -Ulcer Cleansing Soap and Water Soap and Water -Foul Odor after Cleansing No No -Anesthetic Used 5% Lidocaine 5% Lidocaine Gel Gel Lower Limb Edema Present Yes Right Calf (cm) 63.3 65.8 64.2 Right Ankle (cm) 30.3 32.5 32.0 - Nurse 2 - General Ulcer CM Notes Start: 11/19/23 14:23 Freq: Status: Active Protocol: Activity Type Activity Date Activity User E-sign Co-sign Detail Recorded Client Recorded Date Recorded By Document 11/21/23 15:41 Desktop 11/21/23 15:42 Document 11/28/23 15:48 Laptop 11/28/23 15:51 11/21/23 11/28/23 15:41 15:48 Wound Center Nurse 2 #1 R post LE- post-op cluster -Time 15:41 15:49 -Correct Patient Yes Yes -Correct Side, Site, Position Yes Yes -Correct Procedure Yes Yes -Procedure Performed Yes Yes -Type of Procedure Debridement Debridement -Clinical Debridement Subcutaneous Subcutaneous -Tissue Removed Subcutaneous Subcutaneous -Post Debridement (cm) - Length 1.7 2.0 -Post Debridement (cm) - Width 2.0 2.3 -Post Debridement (cm) - Depth 0.5 0.7 -Total Square (Post) (cm) 3.40 4.60 -Area of Debridement (cm) - Length 1.7 2.0 -Area of Debridement (cm) - Width 2.0 2.3 -Total Square (Area) (cm) 3.40 4.60 -Tunneling No No -Undermining/Tunneling No No -Circular Undermining No No -Wound/Ulcer Outcome Not Healed Not Healed -Ulcer Cleansing Rinsed/ Rinsed/ Irrigated with Irrigated with Saline Saline -Foul Odor after Cleansing No No -Bioengineered Tissue Yes Yes -Type of Bioengineered Tissue Theraskin Theraskin -Expiration Date 07/03/28 12/12/27 -Product Lot Number [id number] -Percent Used 100 100 -Lot number of Saline Used [id number] -Bleeding Controlled with Pressure Pressure -Treatment Response Procedure Procedure Tolerated Well Tolerated Well -Offloading No Yes -Type of Offloading Knee Walker -Debridement - Subq, 1st 20sq cm No No -Apply Skin Sub - 1st 25 sq cm - Legs 1 1 -Theraskin - 3TS (3 SQ CM) (per sq cm) 3 3 Pain Scale: 0-10 Numeric Is Patient Pain Free? Yes Yes WC - Nurse 3 - General Ulcer D/C NN Start: 11/19/23 14:23 Freq: Status: Active Protocol: Activity Type Activity Date Activity User E-sign Co-sign Detail Recorded Client Recorded Date Recorded By Document 11/19/23 14:55 KW Desktop 11/19/23 14:56 KW Document 11/21/23 15:58 [facility] Desktop 11/21/23 16:00 [facility] Document 11/26/23 14:29 [facility] [id number] 11/26/23 14:31 [facility] Document 11/28/23 16:06 KW Desktop 11/28/23 16:06 KW 11/19/23 11/21/23 11/26/23 14:55 15:58 14:29 Wound Care Center Nurse 3 #1 R post LE- post-op cluster -Ulcer Cleansing Soap and Water -Primary Dressing Applied Optilok 6.5x10 -Other Dressing [employer]/ theraskin left THERASKIN in place -Primary Dressing Covered/Secured with Dry Gauze & Roll Gauze, Secured with Tape -Other Covering ABD abd -Optilok 6.5x10 1 Right -Multi-Layered Wrap Application Multi-Layer Multi-Layer Multi-Layer Comp - Right ($ Comp - Right ($ Comp - Right ($ ) ) ) Treatment Response Procedure Procedure Tolerated Well Tolerated Well Vital Signs Temperature (97.8 F-99.1 F) 97.3 F L Temperature Source Temporal Pulse Rate (60-100) 109 H Pulse Location Monitor Respiratory Rate (12-18) 16 Respiratory rate source Observation Oxygen Delivery Method Room Air Blood Pressure (90/60-120/80) 141/88 H Blood Pressure Mean (mm Hg) 105 Source Monitor Position Sitting Blood Pressure Location Left Forearm Pain Scale: 0-10 Numeric Is Patient Pain Free? Yes Yes Yes WC - Visit Discharge Discharge Condition Stable Stable Stable Ambulatory Status Ambulatory Ambulatory, Ambulatory, Walker Walker Transportation Private Auto Private Auto Private Auto Accompanied by KNEE WALKER knee walker Medication Reconcilliation completed & No provided to patient/care provider Clinical Summary of Care Provided Yes Notes: uses a knee roller 11/28/23 16:06 Wound Care Center Nurse 3 #1 R post LE- post-op cluster -Ulcer Cleansing -Primary Dressing Applied -Other Dressing -Primary Dressing Covered/Secured with Dry Gauze -Other Covering -Optilok 6.5x10 Right -Multi-Layered Wrap Application Multi-Layer Comp - Left ($) Treatment Response Vital Signs Temperature (97.8 F-99.1 F) Temperature Source Pulse Rate (60-100) Pulse Location Respiratory Rate (12-18) Respiratory rate source Oxygen Delivery Method Blood Pressure (90/60-120/80) Blood Pressure Mean (mm Hg) Source Position Blood Pressure Location Pain Scale: 0-10 Numeric Is Patient Pain Free? 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 All findings were discussed with the patient. All questions were answered to the patient's satisfaction. Excisional debridement down to and including subcutaneous tissue with a number 3mm dermal curette to the right posterior calf. Predebridement measurement was 1.8 x 2.5 x 0.5 cm. Postdebridement measurement is 2.0 x 2.7 x 0.7 cm. Application of TheraSkin skin substitute measuring 1.75 cm x 1.75 cm, 3 cm?, wasapplied to the full-thickness ulceration to the right posterior calf after debridement. Fifth application, 100% of the TheraSkin was used. The TheraSkin was secured with Dermabond followed by nonadherent bandage secured in place with Steri-Strips followed by bolster dressing as well as a 3M compression wrap. Follow-up at the wound care center with Dr. Lord in 1 week. (2) Wound dehiscence, surgical: CODE(S): T81.31XA - Disruption of external operation (surgical) wound, notelsewhere classified, initial encounter QUALIFIERS: Encounter type: subsequent encounter Qualified Code(s): T81.31XD - Disruption of external operation (surgical) wound, not elsewhere classified, subsequent encounter (3) Lymphedema, not elsewhere classified: CODE(S): I89.0 - Lymphedema, not elsewhere classified 11/28/23 1638 <Electronically signed by Sebas Lord DPM> Cosigner Signature (if applicable): CC: ~ Signed [facility] Work Phone: [phone] 560-718003-08-2024 Miscellaneous Notes* Telephone Encounter - Rosaura Cunha MA - 11/23/2023 3:53 PM EST Patient notified of results, verbalized understanding of instructions given. Rosaura Cunha MA * Telephone Encounter - Evaristo Arnold PA - 11/23/2023 3:15 PM EST Please call patient and let her know that fungal culture did grow Petra-yeast now. Continue thighnystatin mouthwash as prescribed. If symptoms persist after using mouthwash for 1 week, return or see PCP. documented in this encounterDayton [facility]03-07-2024 Miscellaneous Notes* Telephone Encounter - Winter Roblero LPN - 11/22/2023 8:28 AM EST Rx for blood glucose meter was sent to wrong pharmacy yesterday. [facility] requesting Rx be sent to them. Rx pending. Winter Roblero LPN documented in this encounterDayton [facility]03-07-2024 Miscellaneous Notes* Telephone Encounter - Rosaura Cunha MA - 11/22/2023 8:14 AM EST Patient notified. Rosaura Cunha MA * Telephone Encounter - Erendira Noe APRN.CNP - 11/22/2023 7:17 AM EST No fungal growth on day 1. Please notify patient. We will call if anything changes in the next several days. documented in this encounterDayton [facility]03-06-2024 Progress note Author Sebas Lord [facility] November 21, 2023 4:44pm Note Date/Time November 21, 2023 4:45 pm [facility] [address] [place] [id number] Progress Note - Wound Care 11/21/23 1642 MR#: [id number] Acct: [id number] Name: NANCI RODRIGUEZ Rep #:[id number] : 1980 43 From: Sebas BEST PCP: Dr. Rodri Chauhan MD Status:HARI Martin RCR Location: History of Present Illness Date of Service: 11/21/23 Chief Complaint: Ulceration right posterior leg History of Wound: Ulceration right posterior leg Subjective Subjective Ms. Rodriguez is a 43-year-old diabetic female presenting to the wound care center today for follow-up and evaluation status post incision and drainage with delayed primary closure to the posterior aspect of the right calf full-thicknessulceration. Date of surgery: 09/28/2023. Patient did admit to being noncompliant during her postoperative phase. She is presenting today for follow-up and evaluation of skin graft substitute to the posterior aspect of theright calf. She has been nonweightbearing using a knee scooter she has kept herwrap clean dry and intact. Denies any constitutional symptoms. She does admit to falling at home bumping her face but did not blackout or see stars and she did not present to the emergency department for evaluation. She is not on a blood thinner at this time. No other pedal complaints at this time. Objective Data Objective Data Vital Signs: Vital Signs Temp Pulse Resp BP O2 Del Method 96.7 F L 101 H 24 H 156/90 H Room Air 11/21/23 15:02 11/21/23 15:02 11/21/23 15:02 11/21/23 15:02 11/19/23 14:23 Oxygen Delivery Method Room Air Weight: 160.223 kg Body Mass Index (BMI) 62.5 Physical Exam Narrative Vascular: DP and PT pulses palpable. CFT is brisk. Nonpitting edema appreciated to right lower extremity. No erythema or proximal streaking is appreciated. Neurological: Light touch intact. Patient response to painful stimuli. Dermatological: Evidence of surgical wound dehiscence secondary to nonweightbearing and lack of medical compliance. Full-thickness ulceration measures 1.7 x 2.0 x 0.5 cm. Wound base is granular nature with sanguinous drainage after debridement. No evidence of erythema or proximal streaking. Cannot rule out infection at this time. Excisional debridement down to and including subcutaneous tissue with a number 3mm dermal curette to the right posterior calf. Predebridement measurement was 1.6 x 1.8 x 0.4 cm. Postdebridement measurement is 1.7 x 2.0 x 0.5 cm. Application of TheraSkin skin substitute measuring 1.75 cm x 1.75 cm, 3 cm?, wasapplied to the full-thickness ulceration to the right posterior calf after debridement. Fourth application, 100% of the TheraSkin was used. The TheraSkinwas secured with Dermabond followed by nonadherent bandage secured in place with Steri-Strips followed by bolster dressing as well as a 3M compression wrap. Musculoskeletal: No pain with calf compression. Mild pain to palpation full- thickness ulceration right calf. Debridement Note Debridement Note Debridement Free Text: Excisional debridement down to and including subcutaneoustissue with a number 3 mm dermal curette to the right posterior calf. Predebridement measurement was 1.6 x 1.8 x 0.4 cm. Postdebridement measurement is 1.7 x 2.0 x 0.5 cm. Application of TheraSkin skin substitute measuring 1.75 cm x 1.75 cm, 3 cm?, wasapplied to the full-thickness ulceration to the right posterior calf after debridement. Fourth application, 100% of the TheraSkin was used. The TheraSkinwas secured with Dermabond followed by nonadherent bandage secured in place with Steri-Strips followed by bolster dressing as well as a 3M compression wrap. Post-Debridement Measurements and Additional Note: Post-Debridement Measurements/Treatment - Nurse 1 - General Ulcer Assessment Start: 11/19/23 14:23 Freq: Status: Active Protocol: WATSON Activity Type Activity Date Activity User E-sign Co-sign Detail Recorded Client Recorded Date Recorded By Document 11/19/23 14:23 KW Desktop 11/19/23 14:55 KW Document 11/21/23 15:02 DL Desktop 11/21/23 15:11 DL 11/19/23 11/21/23 14:23 15:02 - Today's Visit Information Type of service Nurse-only Follow-up Visit Visit (Physician/SENIOR TRAINER ) Arrival Mode Ambulatory, Ambulatory, Other Walker Arrival Mode (Other) knee roller Transfer Assistance Stretcher Patient Identification Verified (Name & Yes Yes ) Patient Requires Transmission-Based No Precautions Finger Stick Blood Sugar(mg/dl) (if not checked indicated): Height and Weight Body Mass Index (BMI) 62.5 62.5 BMI Classification Obese Obese Vital Signs Temperature (97.8 F-99.1 F) 96.6 F L 96.7 F L Temperature Source Temporal Temporal Pulse Rate (60-100) 105 H 101 H Pulse Location Monitor Monitor Respiratory Rate (12-18) 18 24 H Respiratory rate source Observation Oxygen Delivery Method Room Air Blood Pressure (90/60-120/80) 150/81 H 156/90 H Blood Pressure Mean (mm Hg) 104 112 Source Monitor Monitor Position Semi-Fowlers Blood Pressure Location Left Arm History Since Last Visit- (Skip if this is Patient's initial visit) Have you changed medications since your No No last visit? Any new allergies or adverse reactions No No Had a fall/change in ADL's that may No No increase risk of falls Signs or symptoms of abuse and/or No No neglect since last visit Have you been in the hospital since your No No last visit? Has dressing in place as prescribed Yes Yes Has compression in place as prescribed Yes Yes Has offloadiing in place as prescribed Yes Yes Experienced any changes in pain level or No No management Left Footwear Slipper Regular Shoe Right Footwear Slipper Regular Shoe Pain Scale: 0-10 Numeric Is Patient Pain Free? Yes Yes WC - Nurse 1 - General Ulcer Measurement Start: 11/19/23 14:23 Freq: Status: Active Protocol: Activity Type Activity Date Activity User E-sign Co-sign Detail Recorded Client Recorded Date Recorded By Document 11/21/23 15:02 SHONA [employer] 11/21/23 15:11 SHONA 11/21/23 15:02 Wound Center Nurse 1 #1 R post LE- post-op cluster -Current Size (cm) - Length 2 -Current Size (cm) - Width 1.1 -Current Size (cm) - Depth 0.5 -Total Square Cm 2.2 -Exudate Amt Medium -Exudate Type Serosanguineous -Wound Margin Distinct, Outline Attached -Granulation Amt Large (67-100%) -Granulation Quality Red -Necrosis Amt Small (1-33%) -Necrotic Tissue Type Adherent Slough -Structure Exposed N/A -Texture (Rachele-wound Skin Appearance) Scarring -Moisture (Rachele-wound Skin Appearance) No Abnormality -Color (Rachele-wound Skin Appearance) No Abnormality -Ulcer Cleansing Soap and Water -Foul Odor after Cleansing No -Anesthetic Used 5% Lidocaine Gel Right Calf (cm) 63.3 Right Ankle (cm) 30.3 WC - Nurse 2 - General Ulcer CM Notes Start: 11/19/23 14:23 Freq: Status: Active Protocol: Activity Type Activity Date Activity User E-sign Co-sign Detail Recorded Client Recorded Date Recorded By Document 11/21/23 15:41 [employer] 11/21/23 15:42 RUBA 11/21/23 15:41 Wound Center Nurse 2 #1 R post LE- post-op cluster -Time 15:41 -Correct Patient Yes -Correct Side, Site, Position Yes -Correct Procedure Yes -Procedure Performed Yes -Type of Procedure Debridement -Clinical Debridement Subcutaneous -Tissue Removed Subcutaneous -Post Debridement (cm) - Length 1.7 -Post Debridement (cm) - Width 2.0 -Post Debridement (cm) - Depth 0.5 -Total Square (Post) (cm) 3.40 -Area of Debridement (cm) - Length 1.7 -Area of Debridement (cm) - Width 2.0 -Total Square (Area) (cm) 3.40 -Tunneling No -Undermining/Tunneling No -Circular Undermining No -Wound/Ulcer Outcome Not Healed -Ulcer Cleansing Rinsed/ Irrigated with Saline -Foul Odor after Cleansing No -Bioengineered Tissue Yes -Type of Bioengineered Tissue Theraskin -Expiration Date 07/03/28 -Product Lot Number [id number] -Percent Used 100 -Lot number of Saline Used [id number] -Bleeding Controlled with Pressure -Treatment Response Procedure Tolerated Well -Offloading No -Debridement - Subq, 1st 20sq cm No -Apply Skin Sub - 1st 25 sq cm - Legs 1 -Theraskin - 3TS (3 SQ CM) (per sq cm) 3 Pain Scale: 0-10 Numeric Is Patient Pain Free? Yes - Nurse 3 - General Ulcer D/C NN Start: 11/19/23 14:23 Freq: Status: Active Protocol: Activity Type Activity Date Activity User E-sign Co-sign Detail Recorded Client Recorded Date Recorded By Document 11/19/23 14:55 KW Desktop 11/19/23 14:56 KW Document 11/21/23 15:58 [facility] Desktop 11/21/23 16:00 [facility] 11/19/23 11/21/23 14:55 15:58 Wound Care Center Nurse 3 #1 R post LE- post-op cluster -Ulcer Cleansing Soap and Water -Primary Dressing Applied Optilok 6.5x10 -Other Dressing INTEGRA/ THERASKIN -Primary Dressing Covered/Secured with Dry Gauze & Roll Gauze, Secured with Tape -Other Covering ABD -Optilok 6.5x10 1 Right -Multi-Layered Wrap Application Multi-Layer Multi-Layer Comp - Right ($ Comp - Right ($ ) ) Treatment Response Procedure Tolerated Well Pain Scale: 0-10 Numeric Is Patient Pain Free? Yes Yes WC - Visit Discharge Discharge Condition Stable Stable Ambulatory Status Ambulatory Ambulatory, Walker Transportation Private Auto Private Auto Accompanied by KNEE WALKER Medication Reconcilliation completed & No provided to patient/care provider Clinical Summary of Care Provided Yes Notes: uses a knee roller Assessment/Plan Assessment/Plan (1) Non-pressure chronic ulcer of unspecified part of right lower leg with fat layer exposed: CODE(S): L97.912 - Non-pressure chronic ulcer of unspecified part of rightlower leg with fat layer exposed PLAN: Patient was examined and evaluated. All findings were discussed with the patient. All questions were answered to the patient's satisfaction. Excisional debridement down to and including subcutaneous tissue with a number 3mm dermal curette to the right posterior calf. Predebridement measurement was 1.6 x 1.8 x 0.4 cm. Postdebridement measurement is 1.7 x 2.0 x 0.5 cm. Amnionic skin graft was also placed into the patient's wound and allowed to dissolve prior to application of TheraSkin skin graft substitute. Application of TheraSkin skin substitute measuring 1.75 cm x 1.75 cm, 3 cm?, wasapplied to the full-thickness ulceration to the right posterior calf after debridement. Fourth application, 100% of the TheraSkin was used. The TheraSkinwas secured with Dermabond followed by nonadherent bandage secured in place with Steri-Strips followed by bolster dressing as well as a 3M compression wrap. Follow-up at the wound care center with Dr. Lord in 1 week. (2) Wound dehiscence, surgical: CODE(S): T81.31XA - Disruption of external operation (surgical) wound, notelsewhere classified, initial encounter QUALIFIERS: Encounter type: subsequent encounter Qualified Code(s): T81.31XD - Disruption of external operation (surgical) wound, not elsewhere classified, subsequent encounter 11/21/23 1644 <Electronically signed by Sebas Lord DPM> Cosigner Signature (if applicable): CC: ~ Signed [facility] Work Phone: [phone]) 756-636403-06-2024 Miscellaneous Notes* Telephone Encounter - Zunilda Jaramillo APRN.CNP - 11/21/2023 2:07 PM EST sent * Telephone Encounter - Davy Nunez - 11/21/2023 1:05 PM EST Nanci is calling Zunilda Jaramillo APRN.CNP today to request Refill Request (patient needs a new glucometer kit sent to the pharmacy also )test strips and lancets were sent but not the new script for the glucometer kit. Please send NEIL Patient has been identified by name and birthdate. Duration of symptoms: N/A Person calling: self Call patient at: at home [phone] (home) [phone] (cell) Was an appointment scheduled: No Closing statement: Results or non-symptom based questions: Thank you for calling [facility], your call will be returned within the next business day. Davy Rodrigues documented in this [facility]Day[facility] Miscellaneous Notes* Telephone Encounter - Vianney Elise RN - 11/19/2023 8:43 AM EST Patient has been identified by name and date of : Yes, Vianney Elise RN Date 11/19/2023 Time 3:42 am Pharmacy phones for refill(s): Requested Prescriptions Pending Prescriptions Disp Refills promethazine (PHENERGAN) 12.5 mg tablet 120 tablet 1 Sig: Take 1 tablet by mouth four times a day as needed for nausea/vomiting. furosemide (LASIX) 20 mg tablet 60 tablet 1 Sig: Take 1-2 tablets by mouth once daily. cyclobenzaprine (FLEXERIL) 10 mg tablet 30 tablet 2 Sig: Take 1 tablet by mouth three times a day as needed for muscle spasm. May make drowsy metFORMIN (GLUCOPHAGE) 500 mg tablet 120 tablet 11 Sig: Take 2 tablets by mouth two times a day with meals. Take one additional 500 mg tab with breakfast or lunch until BS less than 250 glimepiride (AMARYL) 4 mg tablet 30 tablet 11 Sig: Take 1 tablet by mouth daily with breakfast. Dose change, take one daily albuterol HFA (VENTOLIN HFA) 90 mcg/actuation inhaler 18 g 11 Sig: Inhale 2 Puffs as instructed every 4 hours as needed. Date of last office visit in primary care: 09/18/2023 Date of next office visit in primary care: 12/07/2023 Please advise. Thank you. Vianney Elise RN. documented in this encounterDayton [facility]02-28-2024 Progress note Author Sebas Lord [facility] November 14, 2023 3:30pm Note Date/Time November 14, 2023 3:30pm [facility] [address] [place] [address] Progress Note - Wound Care 11/14/23 1528 MR#: [id number] Acct: [id number] Name: NANCI RODRIGUEZ Rep #:[id number] : 1980 43 From: Sebas hDaliwal PM PCP: Dr. Rodri Chauhan MD Status:RE G RCR Location: History of Present Illness Date of Service: 11/14/23 Chief Complaint: Ulceration right posterior leg History of Wound: Ulceration right posterior leg Subjective Subjective Ms. Rodriguez is a 43-year-old diabetic female presenting to the wound care center today for follow-up and evaluation status post incision and drainage with delayed primary closure to the posterior aspect of the right calf full-thicknessulceration. Date of surgery: 09/28/2023. Patient did admit to being noncompliant during her postoperative phase. She is presenting today for follow-up and evaluation of skin graft substitute to the posterior aspect of theright calf. She has been nonweightbearing using a knee scooter she has kept herwrap clean dry and intact. Denies any constitutional symptoms. She does admit to falling at home bumping her face but did not blackout or see stars and she did not present to the emergency department for evaluation. She is not on a blood thinner at this time. No other pedal complaints at this time. Objective Data Objective Data Vital Signs: Vital Signs Temp Pulse Resp BP O2 Del Method 98 F 120 H 18 168/91 H Room Air 11/12/23 13:14 11/14/23 14:45 11/14/23 14:45 11/14/23 14:45 11/14/23 14:45 Oxygen Delivery Method Room Air Weight: 160.223 kg Body Mass Index (BMI) 62.5 Physical Exam Narrative Vascular: DP and PT pulses palpable. CFT is brisk. Nonpitting edema appreciated to right lower extremity. No erythema or proximal streaking is appreciated. Neurological: Light touch intact. Patient response to painful stimuli. Dermatological: Evidence of surgical wound dehiscence secondary to nonweightbearing and lack of medical compliance. Full-thickness ulceration measures 1.7 x 2.2 x 0.6 cm. Wound base is granular nature with sanguinous drainage after debridement. No evidence of erythema or proximal streaking. Cannot rule out infection at this time. Excisional debridement down to and including subcutaneous tissue with a number 3mm dermal curette to the right posterior calf. Predebridement measurement was 1.6 x 2.0 x 0.5cm. Postdebridement measurement is 1.7 x 2.2 x 0.6 cm. Application of TheraSkin skin substitute measuring 1.75 cm x 1.75 cm, 3 cm?, wasapplied to the full-thickness ulceration to the right posterior calf after debridement. Third application, 100% of the TheraSkin was used. The TheraSkin was secured with Dermabond followed by nonadherent bandage secured in place with Steri-Strips followed by bolster dressing as well as a 3M compression wrap. Musculoskeletal: No pain with calf compression. Mild pain to palpation full- thickness ulceration right calf. Debridement Note Debridement Note Post-Debridement Measurements and Additional Note: Post-Debridement Measurements/Treatment PANCHITO - Nurse 1 - General Ulcer Assessment Start: 10/24/23 15:05 Freq: Status: Active Protocol: WATSON Activity Type Activity Date Activity User E-sign Co-sign Detail Recorded Client Recorded Date Recorded By Document 10/24/23 15:05 KW Desktop 10/24/23 15:18 KW Document 10/29/23 11:18 DL Desktop 10/29/23 11:31 DL Document 10/31/23 10:06 GM Desktop 10/31/23 10:13 GM Document 11/07/23 10:07 KW Desktop 11/07/23 10:15 KW Document 11/12/23 13:14 BMF Desktop 11/12/23 13:16 BMF Document 11/14/23 14:45 KW Desktop 11/14/23 14:48 KW 10/24/23 10/29/23 10/31/23 15:05 11:18 10:06 WC - Today's Visit Information Type of service Follow-up Visit Nurse-only Follow-up Visit (Physician/SENIOR TRAINER Visit (Physician/SENIOR TRAINER ) ) Arrival Mode Ambulatory, Ambulatory Ambulatory, Other Other Arrival Mode (Other) knee roller Transfer Assistance None None Patient Identification Verified (Name & Yes Yes Yes ) Patient Requires Transmission-Based No No Precautions Safety Precautions NA Finger Stick Blood Sugar(mg/dl) (if 160 232 indicated): Blood Sugar Stated by Stated by Patient Patient Height and Weight Body Mass Index (BMI) 62.5 62.5 62.5 BMI Classification Obese Obese Obese Vital Signs Temperature (97.8 F-99.1 F) 96.6 F L 97.5 F L 96.2 F L Temperature Source Temporal Temporal Temporal Pulse Rate (60-100) 103 H 112 H 114 H Pulse Location Monitor Monitor Monitor Respiratory Rate (12-18) 18 22 H 20 H Respiratory rate source Observation Observation Observation Oxygen Delivery Method Room Air Room Air Blood Pressure (90/60-120/80) 185/92 H 145/76 H 160/81 H Blood Pressure Mean (mm Hg) 123 99 107 Source Monitor Monitor Monitor Position Semi-Fowlers Sitting Blood Pressure Location Left Arm Left Arm History Since Last Visit- (Skip if this is Patient's initial visit) Have you changed medications since your No No No last visit? Any new allergies or adverse reactions No No No Had a fall/change in ADL's that may No No No increase risk of falls Signs or symptoms of abuse and/or No No No neglect since last visit Have you been in the hospital since your No No No last visit? Has dressing in place as prescribed Yes Yes Yes Has compression in place as prescribed No Yes Yes Has offloadiing in place as prescribed No N/A Yes Experienced any changes in pain level or No No No management Left Footwear Regular Shoe Right Footwear Regular Shoe Pain Scale: 0-10 Numeric Is Patient Pain Free? Yes Yes Yes 11/07/23 11/12/23 11/14/23 10:07 13:14 14:45 WC - Today's Visit Information Type of service Follow-up Visit Nurse-only Follow-up Visit (Physician/SENIOR TRAINER Visit (Physician/SENIOR TRAINER ) ) Arrival Mode Ambulatory, Ambulatory, Ambulatory Other Walker Arrival Mode (Other) knee roller knee walker Transfer Assistance None Patient Identification Verified (Name & Yes Yes Yes ) Patient Requires Transmission-Based No No Precautions Safety Precautions Finger Stick Blood Sugar(mg/dl) (if 99 indicated): Blood Sugar Stated by Patient Height and Weight Body Mass Index (BMI) 62.5 62.5 62.5 BMI Classification Obese Obese Obese Vital Signs Temperature (97.8 F-99.1 F) 98 F Temperature Source Temporal Pulse Rate (60-100) 112 H 116 H 120 H Pulse Location Monitor Monitor Monitor Respiratory Rate (12-18) 18 16 18 Respiratory rate source Observation Observation Observation Oxygen Delivery Method Room Air Room Air Room Air Blood Pressure (90/60-120/80) 147/92 H 144/80 H 168/91 H Blood Pressure Mean (mm Hg) 110 101 116 Source Monitor Monitor Monitor Position Sitting Sitting Semi-Fowlers Blood Pressure Location Left Forearm Left Forearm Right Arm History Since Last Visit- (Skip if this is Patient's initial visit) Have you changed medications since your No No No last visit? Any new allergies or adverse reactions No No No Had a fall/change in ADL's that may No No No increase risk of falls Signs or symptoms of abuse and/or No No No neglect since last visit Have you been in the hospital since your No No No last visit? Has dressing in place as prescribed Yes Yes Yes Has compression in place as prescribed Yes Yes Yes Has offloadiing in place as prescribed N/A N/A N/A Experienced any changes in pain level or No No No management Left Footwear Regular Shoe Regular Shoe Regular Shoe Right Footwear Regular Shoe Regular Shoe Regular Shoe Pain Scale: 0-10 Numeric Is Patient Pain Free? Yes Yes Yes - Nurse 1 - General Ulcer Measurement Start: 10/24/23 15:05 Freq: Status: Active Protocol: Activity Type Activity Date Activity User E-sign Co-sign Detail Recorded Client Recorded Date Recorded By Document 10/24/23 15:05 KW Desktop 10/24/23 15:18 KW Document 10/29/23 11:18 DL Desktop 10/29/23 11:31 DL Document 10/31/23 10:06 GM Desktop 10/31/23 10:13 GM Document 11/07/23 10:07 KW Desktop 11/07/23 10:15 KW Document 11/12/23 13:14 BMF Desktop 11/12/23 13:16 BMF Document 11/14/23 14:45 KW Desktop 11/14/23 14:48 KW 10/24/23 10/29/23 10/31/23 15:05 11:18 10:06 Wound Center Nurse 1 #1 R post LE- post-op cluster -Combined with other wound No -Current Size (cm) - Length 2.2 0.8 -Current Size (cm) - Width 0.5 0.8 -Current Size (cm) - Depth 0.2 0.5 -Total Square Cm 1.10 0.64 -Date of Last Picture (Recall this 10/31/23 field) -Photo Taken Yes -Epithelialization None Present -Tunneling No -Undermining/Tunneling No -Circular Undermining No -Exudate Amt Medium Small Medium -Exudate Type Yellow/Green Serosanguineous Serosanguineous -Wound Margin Distinct, Distinct, Distinct, Outline Outline Outline Attached Attached Attached -Granulation Amt Small (1-33%) Small (1-33%) -Granulation Quality [place] Red -Slough/Fibrin -Necrosis Amt Large (67-100%) -Necrotic Tissue Type Adherent Slough -Structure Exposed N/A N/A -Texture (Rachele-wound Skin Appearance) Assessed No Abnormality Assessed -Moisture (Rachele-wound Skin Appearance) Assessed Maceration Assessed, Maceration -Color (Rachele-wound Skin Appearance) Assessed No Abnormality Assessed -Temperature (Rachele-wound Skin No Abnormality No Abnormality No Abnormality Appearance) (Pt Warm) (Pt Warm) (Pt Warm) -Tenderness on Palpation (Rachele-wound No Skin Appearance) -Ulcer Cleansing Rinsed/ Soap and Water Soap and Water Irrigated with Saline -Foul Odor after Cleansing No No -Anesthetic Used 5% Lidocaine 5% Lidocaine Gel Gel Lower Limb Edema Present Right Calf (cm) 62.2 62 60.8 Right Ankle (cm) 41 30.5 30.2 11/07/23 11/12/23 11/14/23 10:07 13:14 14:45 Wound Center Nurse 1 #1 R post LE- post-op cluster -Combined with other wound -Current Size (cm) - Length 2.3 2.3 -Current Size (cm) - Width 1.2 1.8 -Current Size (cm) - Depth 0.5 0.4 -Total Square Cm 2.76 4.14 -Date of Last Picture (Recall this field) -Photo Taken No -Epithelialization None Present -Tunneling No -Undermining/Tunneling No -Circular Undermining No -Exudate Amt Medium Medium -Exudate Type Serosanguineous Serosanguineous -Wound Margin Distinct, Distinct, Outline Outline Attached Attached -Granulation Amt Large (67-100%) Medium (34-66%) -Granulation Quality [place] Red -Slough/Fibrin Yes -Necrosis Amt Small (1-33%) Small (1-33%) -Necrotic Tissue Type Adherent Slough -Structure Exposed N/A -Texture (Rachele-wound Skin Appearance) Assessed Assessed, Scarring -Moisture (Rachele-wound Skin Appearance) Assessed, Assessed Maceration -Color (Rachele-wound Skin Appearance) Assessed Assessed -Temperature (Rachele-wound Skin No Abnormality No Abnormality Appearance) (Pt Warm) (Pt Warm) -Tenderness on Palpation (Rachele-wound No Skin Appearance) -Ulcer Cleansing Soap and Water Soap and Water -Foul Odor after Cleansing No -Anesthetic Used 5% Lidocaine 5% Lidocaine Gel Gel Lower Limb Edema Present Yes Yes Right Calf (cm) 61.5 62 62.3 Right Ankle (cm) 43.5 38.0 WC - Nurse 2 - General Ulcer CM Notes Start: 10/24/23 15:05 Freq: Status: Active Protocol: Activity Type Activity Date Activity User E-sign Co-sign Detail Recorded Client Recorded Date Recorded By Document 10/24/23 15:35 Laptop 10/24/23 15:37 Document 10/31/23 10:38 Laptop 10/31/23 10:40 Document 11/07/23 10:50 Laptop 11/07/23 10:52 Document 11/14/23 15:14 Laptop 11/14/23 15:19 10/24/23 10/31/23 11/07/23 15:35 10:38 10:50 Wound Center Nurse 2 #1 R post LE- post-op cluster -Time 15:37 10:38 10:51 -Correct Patient Yes Yes Yes -Correct Side, Site, Position Yes Yes Yes -Correct Procedure Yes Yes Yes -Procedure Performed Yes Yes Yes -Type of Procedure Debridement Debridement Debridement -Clinical Debridement Muscle / Fascia Muscle / Fascia Subcutaneous -Tissue Removed Muscle Muscle Muscle -Post Debridement (cm) - Length 1.5 1.6 2.2 -Post Debridement (cm) - Width 2.4 1.7 1.8 -Post Debridement (cm) - Depth 1.4 1.3 0.6 -Total Square (Post) (cm) 3.60 2.72 3.96 -Area of Debridement (cm) - Length 1.5 1.6 2.2 -Area of Debridement (cm) - Width 2.4 1.7 1.8 -Total Square (Area) (cm) 3.60 2.72 3.96 -Tunneling No No No -Undermining/Tunneling No No No -Circular Undermining No No No -Wound/Ulcer Outcome Not Healed Not Healed Not Healed -Ulcer Cleansing Rinsed/ Rinsed/ Rinsed/ Irrigated with Irrigated with Irrigated with Saline Saline Saline -Foul Odor after Cleansing No No No -Bioengineered Tissue No Yes Yes -Type of Bioengineered Tissue Theraskin Theraskin -Expiration Date 04/26/28 04/26/28 -Product Lot Number [id number] -Percent Used 100 100 -Lot number of Saline Used [id number] -Bleeding Controlled with Pressure Pressure Pressure -Treatment Response Procedure Procedure Procedure Tolerated Well Tolerated Well Tolerated Well -Offloading Yes No No -Type of Offloading Knee Walker -Debridement - Subq, 1st 20sq cm No No -Debridement - Muscle / Fascia, 1st Yes No 20sq cm -Apply Skin Sub - 1st 25 sq cm - Legs 1 1 -Theraskin - 3TS (3 SQ CM) (per sq cm) 3 3 Pain Scale: 0-10 Numeric Is Patient Pain Free? Yes Yes Yes 11/14/23 15:14 Wound Center Nurse 2 #1 R post LE- post-op cluster -Time 15:14 -Correct Patient Yes -Correct Side, Site, Position Yes -Correct Procedure Yes -Procedure Performed Yes -Type of Procedure Debridement -Clinical Debridement Subcutaneous -Tissue Removed Subcutaneous -Post Debridement (cm) - Length 1.7 -Post Debridement (cm) - Width 2.2 -Post Debridement (cm) - Depth 0.6 -Total Square (Post) (cm) 3.74 -Area of Debridement (cm) - Length 1.7 -Area of Debridement (cm) - Width 2.2 -Total Square (Area) (cm) 3.74 -Tunneling No -Undermining/Tunneling No -Circular Undermining No -Wound/Ulcer Outcome Not Healed -Ulcer Cleansing Rinsed/ Irrigated with Saline -Foul Odor after Cleansing No -Bioengineered Tissue Yes -Type of Bioengineered Tissue Theraskin -Expiration Date 07/03/28 -Product Lot Number [id number] -Percent Used 100 -Lot number of Saline Used [id number] -Bleeding Controlled with Pressure -Treatment Response Procedure Tolerated Well -Offloading No -Type of Offloading -Debridement - Subq, 1st 20sq cm No -Debridement - Muscle / Fascia, 1st 20sq cm -Apply Skin Sub - 1st 25 sq cm - Legs 1 -Theraskin - 3TS (3 SQ CM) (per sq cm) 3 Pain Scale: 0-10 Numeric Is Patient Pain Free? Yes WC - Nurse 3 - General Ulcer D/C NN Start: 10/24/23 15:05 Freq: Status: Active Protocol: Activity Type Activity Date Activity User E-sign Co-sign Detail Recorded Client Recorded Date Recorded By Document 10/24/23 15:48 DL Desktop 10/24/23 15:49 DL Document 10/29/23 11:18 DL Desktop 10/29/23 11:31 DL Document 10/31/23 10:48 KW Desktop 10/31/23 10:49 KW Document 11/07/23 10:59 KW Desktop 11/07/23 11:00 KW Document 11/12/23 13:14 BMF Desktop 11/12/23 13:16 BMF Document 11/14/23 15:02 KW Desktop 11/14/23 15:03 KW 10/24/23 10/29/23 10/31/23 15:48 11:18 10:48 Wound Care Center Nurse 3 #1 R post LE- post-op cluster -Ulcer Cleansing Rinsed/ Soap and Water Irrigated with Saline -Foul Odor after Cleansing No No -Primary Dressing Applied Optilok 6.5x10 -Other Dressing betadine betadine -Primary Dressing Covered/Secured with Dry Gauze, Dry Gauze, Dry Gauze & Secured with Secured with Roll Gauze, Tape Tape Secured with Tape -Optilok 6.5x10 1 -Wound Comment(s) Left -Lotion applied to leg before Yes compression wrap Right -Multi-Layered Wrap Application Multi-Layer Multi-Layer Multi-Layer Comp - Right ($ Comp - Right ($ Comp - Right ($ ) ) ) -Other BLE -Multi-Layered Wrap Application Treatment Response Procedure Procedure Tolerated Well Tolerated Well Vital Signs Temperature (97.8 F-99.1 F) 97.5 F L Temperature Source Temporal Pulse Rate (60-100) 112 H Pulse Location Monitor Respiratory Rate (12-18) 22 H Respiratory rate source Observation Oxygen Delivery Method Blood Pressure (90/60-120/80) 145/76 H Blood Pressure Mean (mm Hg) 99 Source Monitor Position Blood Pressure Location Pain Scale: 0-10 Numeric Is Patient Pain Free? Yes Yes Yes WC - Visit Discharge Discharge Condition Stable Stable Stable Ambulatory Status Ambulatory Ambulatory Ambulatory Transportation Private Auto Private Auto Private Auto Accompanied by Medication Reconcilliation completed & No provided to patient/care provider Clinical Summary of Care Provided Yes Notes: using a knee roller 11/07/23 11/12/23 11/14/23 10:59 13:14 15:02 Wound Care Center Nurse 3 #1 R post LE- post-op cluster -Ulcer Cleansing -Foul Odor after Cleansing -Primary Dressing Applied Optilok 6.5x10 -Other Dressing -Primary Dressing Covered/Secured with Dry Gauze & Dry Gauze & Roll Gauze, Roll Gauze, Secured with Secured with Tape Tape -Optilok 6.5x10 1 -Wound Comment(s) per jf rn Left -Lotion applied to leg before compression wrap Right -Multi-Layered Wrap Application Multi-Layer Multi-Layer Comp - Right ($ Comp - Right ($ ) ) -Other applied per jf rn BLE -Multi-Layered Wrap Application Multi-Layer Comp - Bilat ($ ) Treatment Response Procedure Tolerated Well Vital Signs Temperature (97.8 F-99.1 F) 98 F Temperature Source Temporal Pulse Rate (60-100) 116 H Pulse Location Monitor Respiratory Rate (12-18) 16 Respiratory rate source Observation Oxygen Delivery Method Room Air Blood Pressure (90/60-120/80) 144/80 H Blood Pressure Mean (mm Hg) 101 Source Monitor Position Sitting Blood Pressure Location Left Forearm Pain Scale: 0-10 Numeric Is Patient Pain Free? Yes Yes Yes WC - Visit Discharge Discharge Condition Stable Stable Stable Ambulatory Status Ambulatory Ambulatory Ambulatory, Wheelchair Transportation Private Auto Private Auto Accompanied by Medication Reconcilliation completed & No No provided to patient/care provider Clinical Summary of Care Provided Yes Yes Notes: uses a knee roller Assessment/Plan Assessment/Plan (1) Non-pressure chronic ulcer of unspecified part of right lower leg with fat layer exposed: CODE(S): L97.912 - Non-pressure chronic ulcer of unspecified part of rightlower leg with fat layer exposed PLAN: Patient was examined and evaluated. All findings were discussed with the patient. All questions were answered to the patient's satisfaction. Excisional debridement down to and including subcutaneous tissue with a number 3mm dermal curette to the right posterior calf. Predebridement measurement was 1.6 x 2.0 x 0.5cm. Postdebridement measurement is 1.7 x 2.2 x 0.6 cm. Application of TheraSkin skin substitute measuring 1.75 cm x 1.75 cm, 3 cm?, wasapplied to the full-thickness ulceration to the right posterior calf after debridement. Third application, 100% of the TheraSkin was used. The TheraSkin was secured with Dermabond followed by nonadherent bandage secured in place with Steri-Strips followed by bolster dressing as well as a 3M compression wrap. Follow-up at the wound care center with Dr. Lord in 1 week. (2) Wound dehiscence, surgical: CODE(S): T81.31XA - Disruption of external operation (surgical) wound, notelsewhere classified, initial encounter QUALIFIERS: Encounter type: subsequent encounter Qualified Code(s): T81.31XD - Disruption of external operation (surgical) wound, not elsewhere classified, subsequent encounter (3) Lymphedema, not elsewhere classified: CODE(S): I89.0 - Lymphedema, not elsewhere classified (4) Acute painful diabetic polyneuropathy: CODE(S): E11.42 - Type 2 diabetes mellitus with diabetic polyneuropathy PLAN: Patient admits that her blood sugar being well-controlled. She continue strict blood sugar control while in the healing phase of her surgical wound dehiscence. 11/14/23 1530 <Electronically signed by Sebas Lord DPM> Cosigner Signature (if applicable): CC: ~ Signed [facility] Work Phone: 1(293) 910-930102-21-2024 Progress note Author Sebas Lord [facility] November 07, 2023 12:11pm Note Date/Time November 07, 2023 12:07pm [facility] [address] [place] [address] Progress Note - Wound Care 11/07/23 1204 MR#: [id number] Acct: [id number] Name: NANCI RODRIGUEZ Rep #:[id number] : 1980 43 From: Sebas Dhaliwal PM PCP: Dr. Rodri Chauhan MD Status:RE G RCR Location: History of Present Illness Date of Service: 11/07/23 Chief Complaint: Ulceration right posterior leg History of Wound: Ulceration right posterior leg Subjective Subjective Ms. Rodriguez is a 43-year-old diabetic female presenting to the wound care center today for follow-up and evaluation status post incision and drainage with delayed primary closure to the posterior aspect of the right calf full-thicknessulceration. Date of surgery: 09/28/2023. Patient did admit to being noncompliant during her postoperative phase. She is presenting today for follow-up and evaluation of skin graft substitute to the posterior aspect of theright calf. She has been nonweightbearing using a knee scooter she has kept herwrap clean dry and intact. Denies any constitutional symptoms. She does admit to falling at home bumping her face but did not blackout or see stars and she did not present to the emergency department for evaluation. She is not on a blood thinner at this time. No other pedal complaints at this time. Objective Data Objective Data Vital Signs: Vital Signs Temp Pulse Resp BP O2 Del Method 96.2 F L 112 H 18 147/92 H Room Air 10/31/23 10:06 11/07/23 10:07 11/07/23 10:11/07/23 10:24 10:07 Oxygen Delivery Method Room Air Weight: 160.223 kg Body Mass Index (BMI) 62.5 Physical Exam Narrative Vascular: DP and PT pulses palpable. CFT is brisk. Nonpitting edema appreciated to right lower extremity. No erythema or proximal streaking is appreciated. Neurological: Light touch intact. Patient response to painful stimuli. Dermatological: Evidence of surgical wound dehiscence secondary to nonweightbearing and lack of medical compliance. Full-thickness ulceration measures 2.2 x1.8 x 0.6 cm. Wound base is granular nature with sanguinous drainage after debridement. No evidence of erythema or proximal streaking. Cannot rule out infection at this time. Excisional debridement down to and including subcutaneous tissue with a number 3mm dermal curette to the right posterior calf. Predebridement measurement was 2.0 x 1.6 x 0.4 cm. Postdebridement measurement is 2.2 x 1.8 x 0.6 cm. Application of TheraSkin skin substitute measuring 1.75 cm x 1.75 cm, 3 cm?, wasapplied to the full-thickness ulceration to the right posterior calf after debridement. Second application, 100% of the TheraSkin was used. The TheraSkinwas secured with Dermabond followed by nonadherent bandage secured in place with Steri-Strips followed by bolster dressing as well as a 3M compression wrap. Musculoskeletal: No pain with calf compression. Mild pain to palpation full- thickness ulceration right calf. Debridement Note Debridement Note Debridement Free Text: Excisional debridement down to and including subcutaneoustissue with a number 3 mm dermal curette to the right posterior calf. Predebridement measurement was 2.0 x 1.6 x 0.4 cm. Postdebridement measurement is 2.2 x 1.8 x 0.6 cm. Application of TheraSkin skin substitute measuring 1.75 cm x 1.75 cm, 3 cm?, wasapplied to the full-thickness ulceration to the right posterior calf after debridement. Second application, 100% of the TheraSkin was used. The TheraSkinwas secured with Dermabond followed by nonadherent bandage secured in place with Steri-Strips followed by bolster dressing as well as a 3M compression wrap. Post-Debridement Measurements and Additional Note: Post-Debridement Measurements/Treatment WC - Nurse 1 - General Ulcer Assessment Start: 10/24/23 15:05 Freq: Status: Active Protocol: WC.[email or web address] Activity Type Activity Date Activity User E-sign Co-sign Detail Recorded Client Recorded Date Recorded By Document 10/24/23 15:05 KW Desktop 10/24/23 15:18 KW Document 10/29/23 11:18 DL Desktop 10/29/23 11:31 DL Document 10/31/23 10:06 GM Desktop 10/31/23 10:13 GM Document 11/07/23 10:07 KW Desktop 11/07/23 10:15 KW 10/24/23 10/29/23 10/31/23 15:05 11:18 10:06 WC - Today's Visit Information Type of service Follow-up Visit Nurse-only Follow-up Visit (Physician/SENIOR TRAINER Visit (Physician/SENIOR TRAINER ) ) Arrival Mode Ambulatory, Ambulatory Ambulatory, Other Other Arrival Mode (Other) knee roller Transfer Assistance None None Patient Identification Verified (Name & Yes Yes Yes ) Patient Requires Transmission-Based No No Precautions Safety Precautions NA Finger Stick Blood Sugar(mg/dl) (if 160 232 indicated): Blood Sugar Stated by Stated by Patient Patient Height and Weight Body Mass Index (BMI) 62.5 62.5 62.5 BMI Classification Obese Obese Obese Vital Signs Temperature (97.8 F-99.1 F) 96.6 F L 97.5 F L 96.2 F L Temperature Source Temporal Temporal Temporal Pulse Rate (60-100) 103 H 112 H 114 H Pulse Location Monitor Monitor Monitor Respiratory Rate (12-18) 18 22 H 20 H Respiratory rate source Observation Observation Observation Oxygen Delivery Method Room Air Room Air Blood Pressure (90/60-120/80) 185/92 H 145/76 H 160/81 H Blood Pressure Mean (mm Hg) 123 99 107 Source Monitor Monitor Monitor Position Semi-Fowlers Sitting Blood Pressure Location Left Arm Left Arm History Since Last Visit- (Skip if this is Patient's initial visit) Have you changed medications since your No No No last visit? Any new allergies or adverse reactions No No No Had a fall/change in ADL's that may No No No increase risk of falls Signs or symptoms of abuse and/or No No No neglect since last visit Have you been in the hospital since your No No No last visit? Has dressing in place as prescribed Yes Yes Yes Has compression in place as prescribed No Yes Yes Has offloadiing in place as prescribed No N/A Yes Experienced any changes in pain level or No No No management Left Footwear Regular Shoe Right Footwear Regular Shoe Pain Scale: 0-10 Numeric Is Patient Pain Free? Yes Yes Yes 11/07/23 10:07 - Today's Visit Information Type of service Follow-up Visit (Physician/SENIOR TRAINER ) Arrival Mode Ambulatory, Other Arrival Mode (Other) knee roller Transfer Assistance Patient Identification Verified (Name & Yes ) Patient Requires Transmission-Based Precautions Safety Precautions Finger Stick Blood Sugar(mg/dl) (if indicated): Blood Sugar Height and Weight Body Mass Index (BMI) 62.5 BMI Classification Obese Vital Signs Temperature (97.8 F-99.1 F) Temperature Source Pulse Rate (60-100) 112 H Pulse Location Monitor Respiratory Rate (12-18) 18 Respiratory rate source Observation Oxygen Delivery Method Room Air Blood Pressure (90/60-120/80) 147/92 H Blood Pressure Mean (mm Hg) 110 Source Monitor Position Sitting Blood Pressure Location Left Forearm History Since Last Visit- (Skip if this is Patient's initial visit) Have you changed medications since your No last visit? Any new allergies or adverse reactions No Had a fall/change in ADL's that may No increase risk of falls Signs or symptoms of abuse and/or No neglect since last visit Have you been in the hospital since your No last visit? Has dressing in place as prescribed Yes Has compression in place as prescribed Yes Has offloadiing in place as prescribed N/A Experienced any changes in pain level or No management Left Footwear Regular Shoe Right Footwear Regular Shoe Pain Scale: 0-10 Numeric Is Patient Pain Free? Yes - Nurse 1 - General Ulcer Measurement Start: 10/24/23 15:05 Freq: Status: Active Protocol: Activity Type Activity Date Activity User E-sign Co-sign Detail Recorded Client Recorded Date Recorded By Document 10/24/23 15:05 KW Desktop 10/24/23 15:18 KW Document 10/29/23 11:18 DL Desktop 10/29/23 11:31 DL Document 10/31/23 10:06 GM Desktop 10/31/23 10:13 GM Document 11/07/23 10:07 KW Desktop 11/07/23 10:15 KW 10/24/23 10/29/23 10/31/23 15:05 11:18 10:06 Wound Center Nurse 1 #1 R post LE- post-op cluster -Combined with other wound No -Current Size (cm) - Length 2.2 0.8 -Current Size (cm) - Width 0.5 0.8 -Current Size (cm) - Depth 0.2 0.5 -Total Square Cm 1.10 0.64 -Date of Last Picture (Recall this 10/31/23 field) -Photo Taken Yes -Epithelialization None Present -Tunneling No -Undermining/Tunneling No -Circular Undermining No -Exudate Amt Medium Small Medium -Exudate Type Yellow/Green Serosanguineous Serosanguineous -Wound Margin Distinct, Distinct, Distinct, Outline Outline Outline Attached Attached Attached -Granulation Amt Small (1-33%) Small (1-33%) -Granulation Quality [place] Red -Necrosis Amt Large (67-100%) -Necrotic Tissue Type Adherent Slough -Structure Exposed N/A N/A -Texture (Rachele-wound Skin Appearance) Assessed No Abnormality Assessed -Moisture (Rachele-wound Skin Appearance) Assessed Maceration Assessed, Maceration -Color (Rachele-wound Skin Appearance) Assessed No Abnormality Assessed -Temperature (Rachele-wound Skin No Abnormality No Abnormality No Abnormality Appearance) (Pt Warm) (Pt Warm) (Pt Warm) -Tenderness on Palpation (Rachele-wound No Skin Appearance) -Ulcer Cleansing Rinsed/ Soap and Water Soap and Water Irrigated with Saline -Foul Odor after Cleansing No No -Anesthetic Used 5% Lidocaine 5% Lidocaine Gel Gel Right Calf (cm) 62.2 62 60.8 Right Ankle (cm) 41 30.5 30.2 11/07/23 10:07 Wound Center Nurse 1 #1 R post LE- post-op cluster -Combined with other wound -Current Size (cm) - Length 2.3 -Current Size (cm) - Width 1.2 -Current Size (cm) - Depth 0.5 -Total Square Cm 2.76 -Date of Last Picture (Recall this field) -Photo Taken -Epithelialization -Tunneling -Undermining/Tunneling -Circular Undermining -Exudate Amt Medium -Exudate Type Serosanguineous -Wound Margin Distinct, Outline Attached -Granulation Amt Large (67-100%) -Granulation Quality [place] -Necrosis Amt Small (1-33%) -Necrotic Tissue Type Adherent Slough -Structure Exposed -Texture (Rachele-wound Skin Appearance) Assessed -Moisture (Rachele-wound Skin Appearance) Assessed, Maceration -Color (Rachele-wound Skin Appearance) Assessed -Temperature (Rachele-wound Skin No Abnormality Appearance) (Pt Warm) -Tenderness on Palpation (Rachele-wound Skin Appearance) -Ulcer Cleansing Soap and Water -Foul Odor after Cleansing -Anesthetic Used 5% Lidocaine Gel Right Calf (cm) 61.5 Right Ankle (cm) 43.5 WC - Nurse 2 - General Ulcer CM Notes Start: 10/24/23 15:05 Freq: Status: Active Protocol: Activity Type Activity Date Activity User E-sign Co-sign Detail Recorded Client Recorded Date Recorded By Document 10/24/23 15:35 [employer] Laptop 10/24/23 15:37 [employer] Document 10/31/23 10:38 [employer] Laptop 10/31/23 10:40 [employer] Document 11/07/23 10:50 [employer] Laptop 11/07/23 10:52 [employer] 10/24/23 10/31/23 11/07/23 15:35 10:38 10:50 Wound Center Nurse 2 #1 R post LE- post-op cluster -Time 15:37 10:38 10:51 -Correct Patient Yes Yes Yes -Correct Side, Site, Position Yes Yes Yes -Correct Procedure Yes Yes Yes -Procedure Performed Yes Yes Yes -Type of Procedure Debridement Debridement Debridement -Clinical Debridement Muscle / Fascia Muscle / Fascia Subcutaneous -Tissue Removed Muscle Muscle Muscle -Post Debridement (cm) - Length 1.5 1.6 2.2 -Post Debridement (cm) - Width 2.4 1.7 1.8 -Post Debridement (cm) - Depth 1.4 1.3 0.6 -Total Square (Post) (cm) 3.60 2.72 3.96 -Area of Debridement (cm) - Length 1.5 1.6 2.2 -Area of Debridement (cm) - Width 2.4 1.7 1.8 -Total Square (Area) (cm) 3.60 2.72 3.96 -Tunneling No No No -Undermining/Tunneling No No No -Circular Undermining No No No -Wound/Ulcer Outcome Not Healed Not Healed Not Healed -Ulcer Cleansing Rinsed/ Rinsed/ Rinsed/ Irrigated with Irrigated with Irrigated with Saline Saline Saline -Foul Odor after Cleansing No No No -Bioengineered Tissue No Yes Yes -Type of Bioengineered Tissue Theraskin Theraskin -Expiration Date 04/26/28 04/26/28 -Product Lot Number [id number] -Percent Used 100 100 -Lot number of Saline Used [id number] -Bleeding Controlled with Pressure Pressure Pressure -Treatment Response Procedure Procedure Procedure Tolerated Well Tolerated Well Tolerated Well -Offloading Yes No No -Type of Offloading Knee Walker -Debridement - Subq, 1st 20sq cm No No -Debridement - Muscle / Fascia, 1st Yes No 20sq cm -Apply Skin Sub - 1st 25 sq cm - Legs 1 1 -[place]askin - 3TS (3 SQ CM) (per sq cm) 3 3 Pain Scale: 0-10 Numeric Is Patient Pain Free? Yes Yes Yes WC - Nurse 3 - General Ulcer D/C NN Start: 10/24/23 15:05 Freq: Status: Active Protocol: Activity Type Activity Date Activity User E-sign Co-sign Detail Recorded Client Recorded Date Recorded By Document 10/24/23 15:48 DL Desktop 10/24/23 15:49 DL Document 10/29/23 11:18 DL Desktop 10/29/23 11:31 DL Document 10/31/23 10:48 KW Desktop 10/31/23 10:49 KW Document 11/07/23 10:59 KW Desktop 11/07/23 11:00 KW 10/24/23 10/29/23 10/31/23 15:48 11:18 10:48 Wound Care Center Nurse 3 #1 R post LE- post-op cluster -Ulcer Cleansing Rinsed/ Soap and Water Irrigated with Saline -Foul Odor after Cleansing No No -Primary Dressing Applied Optilok 6.5x10 -Other Dressing betadine betadine -Primary Dressing Covered/Secured with Dry Gauze, Dry Gauze, Dry Gauze & Secured with Secured with Roll Gauze, Tape Tape Secured with Tape -Optilok 6.5x10 1 Left -Lotion applied to leg before Yes compression wrap Right -Multi-Layered Wrap Application Multi-Layer Multi-Layer Multi-Layer Comp - Right ($ Comp - Right ($ Comp - Right ($ ) ) ) Treatment Response Procedure Procedure Tolerated Well Tolerated Well Vital Signs Temperature (97.8 F-99.1 F) 97.5 F L Temperature Source Temporal Pulse Rate (60-100) 112 H Pulse Location Monitor Respiratory Rate (12-18) 22 H Respiratory rate source Observation Blood Pressure (90/60-120/80) 145/76 H Blood Pressure Mean (mm Hg) 99 Source Monitor Pain Scale: 0-10 Numeric Is Patient Pain Free? Yes Yes Yes WC - Visit Discharge Discharge Condition Stable Stable Stable Ambulatory Status Ambulatory Ambulatory Ambulatory Transportation Private Auto Private Auto Private Auto Medication Reconcilliation completed & No provided to patient/care provider Clinical Summary of Care Provided Yes Notes: using a knee roller 11/07/23 10:59 Wound Care Center Nurse 3 #1 R post LE- post-op cluster -Ulcer Cleansing -Foul Odor after Cleansing -Primary Dressing Applied -Other Dressing -Primary Dressing Covered/Secured with Dry Gauze & Roll Gauze, Secured with Tape -Optilok 6.5x10 Left -Lotion applied to leg before compression wrap Right -Multi-Layered Wrap Application Multi-Layer Comp - Right ($ ) Treatment Response Vital Signs Temperature (97.8 F-99.1 F) Temperature Source Pulse Rate (60-100) Pulse Location Respiratory Rate (12-18) Respiratory rate source Blood Pressure (90/60-120/80) Blood Pressure Mean (mm Hg) Source Pain Scale: 0-10 Numeric Is Patient Pain Free? 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 All findings were discussed with the patient. All questions were answered to the patient's satisfaction. Excisional debridement down to and including subcutaneous tissue with a number 3mm dermal curette to the right posterior calf. Predebridement measurement was 2.0 x 1.6 x 0.4 cm. Postdebridement measurement is 2.2 x 1.8 x 0.6 cm. Application of TheraSkin skin substitute measuring 1.75 cm x 1.75 cm, 3 cm?, wasapplied to the full-thickness ulceration to the right posterior calf after debridement. Second application, 100% of the TheraSkin was used. The TheraSkinwas secured with Dermabond followed by nonadherent bandage secured in place with Steri-Strips followed by bolster dressing as well as a 3M compression wrap. Follow-up at the wound care center with Dr. Lord in 1 week. (2) Wound dehiscence, surgical: CODE(S): T81.31XA - Disruption of external operation (surgical) wound, notelsewhere classified, initial encounter QUALIFIERS: Encounter type: subsequent encounter Qualified Code(s): T81.31XD - Disruption of external operation (surgical) wound, not elsewhere classified, subsequent encounter (3) Lymphedema, not elsewhere classified: CODE(S): I89.0 - Lymphedema, not elsewhere classified (4) Acute painful diabetic polyneuropathy: CODE(S): E11.42 - Type 2 diabetes mellitus with diabetic polyneuropathy PLAN: Patient admits that her blood sugar being well-controlled. She continue strict blood sugar control while in the healing phase of her surgical wound dehiscence. 11/07/23 1211 <Electronically signed by Sebas Lord DPM> Cosigner Signature (if applicable): CC: ~ Signed [facility] Work Phone: [phone] Progress note Author Sebas Lord [facility] October 31, 2023 12:17pm Note Date/Time October 31, 2023 12:10pm [facility] [address] [place] [id number] Progress Note - Wound Care 10/31/23 1209 MR#: [id number] Acct: [id number] Name: NANCI RODRIGUEZ Rep #:[id number] : 1980 43 From: Sebas Dhaliwal PM PCP: Dr. Rodri Chauhan MD Status:RE G RCR Location: WC ADDENDUM by DPLuis Enrique Lord on 10/31/23 at 1217 Addendum As for the skin graft substitute. A peer to peer was performed between Dr. Banks care source. The graft was ultimately approved after the peer to peer. Authorization #[id number] 10/31/23 1217<Electronically signed by Sebas Lord DPM> Cosigner Signature (if applicable): cc: ~* Signed History of Present Illness Date of Service: 10/31/23 Chief Complaint: Ulceration right posterior leg History of Wound: Ulceration right posterior leg Subjective Subjective Ms. Rodriguez is a 43-year-old diabetic female presenting to the wound care center today for follow-up and evaluation status post incision and drainage with delayed primary closure to the posterior aspect of the right calf full-thicknessulceration. Date of surgery: 09/28/2023. Patient admitts her pain is improved. Patient states she has been nonweightbearing to the right lower extremity assistive knee scooter. She has kept her 3M dressing clean dry and intact denies any strikethrough. She is taking her antibiotic as written. She denies trauma. Denies constitutional symptoms. No other pedal complaints at this time. Objective Data Objective Data Vital Signs: Vital Signs Temp Pulse Resp BP O2 Del Method 96.2 F L 114 H 20 H 160/81 H Room Air 10/31/23 10:06 10/31/23 10:06 10/31/23 10:06 10/31/23 10:10/31/23 10:06 Oxygen Delivery Method Room Air Weight: 160.223 kg Body Mass Index (BMI) 62.5 Physical Exam Narrative Vascular: DP and PT pulses palpable. CFT is brisk. Nonpitting edema appreciated to right lower extremity. No erythema or proximal streaking is appreciated. Neurological: Light touch intact. Patient response to painful stimuli. Dermatological: Evidence of surgical wound dehiscence secondary to nonweightbearing and lack of medical compliance. Full-thickness ulceration measures 1.6 x 1.7 x 1.3 cm. Wound base is granular nature with sanguinous drainage after debridement. No evidence of erythema or proximal streaking. Cannot rule out infection at this time. Excisional debridement down to and including subcutaneous tissue with a number 3mm dermal curette to the right posterior calf. Predebridement measurement was 1.3 x 1.5 x 0.8 cm. Postdebridement measurement is 1.6 x 1.7 x 1.3 cm. Application of TheraSkin skin substitute measuring 1.75 cm x 1.75 cm, 3 cm?, wasapplied to the full-thickness ulceration to the right posterior calf after debridement. First application, 100% of the TheraSkin was used. The TheraSkin was secured with Dermabond followed by nonadherent bandage secured in place with Steri-Strips followed by bolster dressing as well as a 3M compression wrap. Musculoskeletal: No pain with calf compression. Mild pain to palpation full- thickness ulceration right calf. Debridement Note Debridement Note Debridement Free Text: Excisional debridement down to and including subcutaneoustissue with a number 3 mm dermal curette to the right posterior calf. Predebridement measurement was 1.3 x 1.5 x 0.8 cm. Postdebridement measurement is 1.6 x 1.7 x 1.3 cm. Application of TheraSkin skin substitute measuring 1.75 cm x 1.75 cm, 3 cm?, wasapplied to the full-thickness ulceration to the right posterior calf after debridement. First application, 100% of the TheraSkin was used. The TheraSkin was secured with Dermabond followed by nonadherent bandage secured in place with Steri-Strips followed by bolster dressing as well as a 3M compression wrap. Post-Debridement Measurements and Additional Note: Post-Debridement Measurements/Treatment - Nurse 1 - General Ulcer Assessment Start: 10/24/23 15:05 Freq: Status: Active Protocol: WC.LOWEXT Activity Type Activity Date Activity User E-sign Co-sign Detail Recorded Client Recorded Date Recorded By Document 10/24/23 15:05 KW Desktop 10/24/23 15:18 KW Document 10/29/23 11:18 DL Desktop 10/29/23 11:31 DL Document 10/31/23 10:06 GM Desktop 10/31/23 10:13 GM 10/24/23 10/29/23 10/31/23 15:05 11:18 10:06 - Today's Visit Information Type of service Follow-up Visit Nurse-only Follow-up Visit (Physician/SENIOR TRAINER Visit (Physician/SENIOR TRAINER ) ) Arrival Mode Ambulatory, Ambulatory Ambulatory, Other Other Arrival Mode (Other) knee roller Transfer Assistance None None Patient Identification Verified (Name & Yes Yes Yes ) Patient Requires Transmission-Based No No Precautions Safety Precautions NA Finger Stick Blood Sugar(mg/dl) (if 160 232 indicated): Blood Sugar Stated by Stated by Patient Patient Height and Weight Body Mass Index (BMI) 62.5 62.5 62.5 BMI Classification Obese Obese Obese Vital Signs Temperature (97.8 F-99.1 F) 96.6 F L 97.5 F L 96.2 F L Temperature Source Temporal Temporal Temporal Pulse Rate (60-100) 103 H 112 H 114 H Pulse Location Monitor Monitor Monitor Respiratory Rate (12-18) 18 22 H 20 H Respiratory rate source Observation Observation Observation Oxygen Delivery Method Room Air Room Air Blood Pressure (90/60-120/80) 185/92 H 145/76 H 160/81 H Blood Pressure Mean (mm Hg) 123 99 107 Source Monitor Monitor Monitor Position Semi-Fowlers Sitting Blood Pressure Location Left Arm Left Arm History Since Last Visit- (Skip if this is Patient's initial visit) Have you changed medications since your No No No last visit? Any new allergies or adverse reactions No No No Had a fall/change in ADL's that may No No No increase risk of falls Signs or symptoms of abuse and/or No No No neglect since last visit Have you been in the hospital since your No No No last visit? Has dressing in place as prescribed Yes Yes Yes Has compression in place as prescribed No Yes Yes Has offloadiing in place as prescribed No N/A Yes Experienced any changes in pain level or No No No management Left Footwear Regular Shoe Right Footwear Regular Shoe Pain Scale: 0-10 Numeric Is Patient Pain Free? Yes Yes Yes WC - Nurse 1 - General Ulcer Measurement Start: 10/24/23 15:05 Freq: Status: Active Protocol: Activity Type Activity Date Activity User E-sign Co-sign Detail Recorded Client Recorded Date Recorded By Document 10/24/23 15:05 KW Desktop 10/24/23 15:18 KW Document 10/29/23 11:18 DL Desktop 10/29/23 11:31 DL Document 10/31/23 10:06 GM Desktop 10/31/23 10:13 GM 10/24/23 10/29/23 10/31/23 15:05 11:18 10:06 Wound Center Nurse 1 #1 R post LE- post-op cluster -Combined with other wound No -Current Size (cm) - Length 2.2 0.8 -Current Size (cm) - Width 0.5 0.8 -Current Size (cm) - Depth 0.2 0.5 -Total Square Cm 1.10 0.64 -Date of Last Picture (Recall this 10/31/23 field) -Photo Taken Yes -Epithelialization None Present -Tunneling No -Undermining/Tunneling No -Circular Undermining No -Exudate Amt Medium Small Medium -Exudate Type Yellow/Green Serosanguineous Serosanguineous -Wound Margin Distinct, Distinct, Distinct, Outline Outline Outline Attached Attached Attached -Granulation Amt Small (1-33%) Small (1-33%) -Granulation Quality [place] Red -Necrosis Amt Large (67-100%) -Necrotic Tissue Type Adherent Slough -Structure Exposed N/A N/A -Texture (Rachele-wound Skin Appearance) Assessed No Abnormality Assessed -Moisture (Rachele-wound Skin Appearance) Assessed Maceration Assessed, Maceration -Color (Rachele-wound Skin Appearance) Assessed No Abnormality Assessed -Temperature (Rachele-wound Skin No Abnormality No Abnormality No Abnormality Appearance) (Pt Warm) (Pt Warm) (Pt Warm) -Tenderness on Palpation (Rachele-wound No Skin Appearance) -Ulcer Cleansing Rinsed/ Soap and Water Soap and Water Irrigated with Saline -Foul Odor after Cleansing No No -Anesthetic Used 5% Lidocaine 5% Lidocaine Gel Gel Right Calf (cm) 62.2 62 60.8 Right Ankle (cm) 41 30.5 30.2 WC - Nurse 2 - General Ulcer CM Notes Start: 10/24/23 15:05 Freq: Status: Active Protocol: Activity Type Activity Date Activity User E-sign Co-sign Detail Recorded Client Recorded Date Recorded By Document 10/24/23 15:35 Laptop 10/24/23 15:37 Document 10/31/23 10:38 Laptop 10/31/23 10:40 10/24/23 10/31/23 15:35 10:38 Wound Center Nurse 2 #1 R post LE- post-op cluster -Time 15:37 10:38 -Correct Patient Yes Yes -Correct Side, Site, Position Yes Yes -Correct Procedure Yes Yes -Procedure Performed Yes Yes -Type of Procedure Debridement Debridement -Clinical Debridement Muscle / Fascia Muscle / Fascia -Tissue Removed Muscle Muscle -Post Debridement (cm) - Length 1.5 1.6 -Post Debridement (cm) - Width 2.4 1.7 -Post Debridement (cm) - Depth 1.4 1.3 -Total Square (Post) (cm) 3.60 2.72 -Area of Debridement (cm) - Length 1.5 1.6 -Area of Debridement (cm) - Width 2.4 1.7 -Total Square (Area) (cm) 3.60 2.72 -Tunneling No No -Undermining/Tunneling No No -Circular Undermining No No -Wound/Ulcer Outcome Not Healed Not Healed -Ulcer Cleansing Rinsed/ Rinsed/ Irrigated with Irrigated with Saline Saline -Foul Odor after Cleansing No No -Bioengineered Tissue No Yes -Type of Bioengineered Tissue [place]in -Expiration Date 04/26/28 -Product Lot Number [id number] -Percent Used 100 -Lot number of Saline Used [id number] -Bleeding Controlled with Pressure Pressure -Treatment Response Procedure Procedure Tolerated Well Tolerated Well -Offloading Yes No -Type of Offloading Knee Walker -Debridement - Subq, 1st 20sq cm No -Debridement - Muscle / Fascia, 1st Yes No 20sq cm -Apply Skin Sub - 1st 25 sq cm - Legs 1 -[place] - 3TS (3 SQ CM) (per sq cm) 3 Pain Scale: 0-10 Numeric Is Patient Pain Free? Yes Yes WC - Nurse 3 - General Ulcer D/C NN Start: 10/24/23 15:05 Freq: Status: Active Protocol: Activity Type Activity Date Activity User E-sign Co-sign Detail Recorded Client Recorded Date Recorded By Document 10/24/23 15:48 DL Desktop 10/24/23 15:49 DL Document 10/29/23 11:18 DL Desktop 10/29/23 11:31 DL Document 10/31/23 10:48 KW Desktop 10/31/23 10:49 KW 10/24/23 10/29/23 10/31/23 15:48 11:18 10:48 Wound Care Center Nurse 3 #1 R post LE- post-op cluster -Ulcer Cleansing Rinsed/ Soap and Water Irrigated with Saline -Foul Odor after Cleansing No No -Primary Dressing Applied Optilok 6.5x10 -Other Dressing betadine betadine -Primary Dressing Covered/Secured with Dry Gauze, Dry Gauze, Dry Gauze & Secured with Secured with Roll Gauze, Tape Tape Secured with Tape -Optilok 6.5x10 1 Left -Lotion applied to leg before Yes compression wrap Right -Multi-Layered Wrap Application Multi-Layer Multi-Layer Multi-Layer Comp - Right ($ Comp - Right ($ Comp - Right ($ ) ) ) Treatment Response Procedure Procedure Tolerated Well Tolerated Well Vital Signs Temperature (97.8 F-99.1 F) 97.5 F L Temperature Source Temporal Pulse Rate (60-100) 112 H Pulse Location Monitor Respiratory Rate (12-18) 22 H Respiratory rate source Observation Blood Pressure (90/60-120/80) 145/76 H Blood Pressure Mean (mm Hg) 99 Source Monitor Pain Scale: 0-10 Numeric Is Patient Pain Free? 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 All findings were discussed with the patient. All questions were answered to the patient's satisfaction. Excisional debridement down to and including subcutaneous tissue with a number 3mm dermal curette to the right posterior calf. Predebridement measurement was 1.3 x 1.5 x 0.8 cm. Postdebridement measurement is 1.6 x 1.7 x 1.3 cm. Application of TheraSkin skin substitute measuring 1.75 cm x 1.75 cm, 3 cm?, wasapplied to the full-thickness ulceration to the right posterior calf after debridement. First application, 100% of the TheraSkin was used. The TheraSkin was secured with Dermabond followed by nonadherent bandage secured in place with Steri-Strips followed by bolster dressing as well as a 3M compression wrap. Follow-up at the wound care center with Dr. Lord in 1 week. (2) Wound dehiscence, surgical: CODE(S): T81.31XA - Disruption of external operation (surgical) wound, notelsewhere classified, initial encounter QUALIFIERS: Encounter type: subsequent encounter Qualified Code(s): T81.31XD - Disruption of external operation (surgical) wound, not elsewhere classified, subsequent encounter (3) Lymphedema, not elsewhere classified: CODE(S): I89.0 - Lymphedema, not elsewhere classified (4) Acute painful diabetic polyneuropathy: CODE(S): E11.42 - Type 2 diabetes mellitus with diabetic polyneuropathy PLAN: Patient mitts to being well-controlled and admits that her blood sugar [id number] mg/dL today. She will continue to provide blood sugar readings with every visit and will continue to keep her blood sugar around 100 to 150 mg/dL. 10/31/23 1216 <Electronically signed by Sebas Lord DPM> Cosigner Signature (if applicable): CC: ~ Signed [facility] Work Phone: [phone] 823-758502-07-2024 Progress note Author Sebas Lord [facility] October 24, 2023 4:01pm Note Date/Time October 24, 2023 4 :01pm [facility] [address] [place] [id number] Progress Note - Wound Care 10/24/23 1551 MR#: [id number] Acct: [id number] Name: NANCI RODRIGUEZ Rep #:[id number] : 1980 43 From: Sebas Dhaliwal PM PCP: Dr. Rodri Chauhan MD Status:RE G R Location: History of Present Illness Date of Service: 10/24/23 Chief Complaint: Ulceration right posterior leg History of Wound: Ulceration right posterior leg Subjective Subjective Ms. Rodriguez is a 43-year-old diabetic female presenting to the wound care center today for follow-up and evaluation status post incision and drainage with delayed primary closure to the posterior aspect of the right calf full-thicknessulceration. Date of surgery: 09/28/2023. Patient admitts her pain is improved. Patient states she has been nonweightbearing to the right lower extremity assistive knee scooter. She has kept her 3M dressing clean dry and intact denies any strikethrough. Denies trauma denies constitutional symptoms. No other pedal complaints at this time.. Objective Data Objective Data Vital Signs: Vital Signs Temp Pulse Resp BP O2 Del Method 96.6 F L 103 H 18 185/92 H Room Air 10/24/23 15:05 10/24/23 15:05 10/24/23 15:05 10/24/23 15:05 10/24/23 15:05 Oxygen Delivery Method Room Air Weight: 160.223 kg Body Mass Index (BMI) 62.5 Physical Exam Narrative Vascular: DP and PT pulses palpable. CFT is brisk. Nonpitting edema appreciated to right lower extremity. No erythema or proximal streaking is appreciated. Neurological: Light touch intact. Patient response to painful stimuli. Dermatological: Evidence of surgical wound dehiscence secondary to nonweightbearing and lack of medical compliance. Full-thickness ulceration measures 1.5 x 2.4 x 1.4 cm. Wound base is granular nature with sanguinous drainage after debridement. No evidence of erythema or proximal streaking. Cannot rule out infection at this time. Excisional debridement down to and including subcutaneous tissue with a number 3mm dermal curette to the right posterior calf. Predebridement measurement was 1.3 x 2.2 x 0.6 cm. Postdebridement measurement is 1.5 x 2.4 x 1.4 cm. Musculoskeletal: No pain with calf compression. Mild pain to palpation full- thickness ulceration right calf. Debridement Note Debridement Note Debridement Free Text: Excisional debridement down to and including subcutaneoustissue with a number 3 mm dermal curette to the right posterior calf. Predebridement measurement was 1.3 x 2.2 x 0.6 cm. Postdebridement measurement is 1.5 x 2.4 x 1.4 cm. Post-Debridement Measurements and Additional Note: Post-Debridement Measurements/Treatment - Nurse 1 - General Ulcer Assessment Start: 10/24/23 15:05 Freq: Status: Active Protocol: WATSON Activity Type Activity Date Activity User E-sign Co-sign Detail Recorded Client Recorded Date Recorded By Document 10/24/23 15:05 KW Desktop 10/24/23 15:18 KW 10/24/23 15:05 - Today's Visit Information Type of service Follow-up Visit (Physician/SENIOR TRAINER ) Arrival Mode Ambulatory, Other Arrival Mode (Other) knee roller Patient Identification Verified (Name & Yes ) Height and Weight Body Mass Index (BMI) 62.5 BMI Classification Obese Vital Signs Temperature (97.8 F-99.1 F) 96.6 F L Temperature Source Temporal Pulse Rate (60-100) 103 H Pulse Location Monitor Respiratory Rate (12-18) 18 Respiratory rate source Observation Oxygen Delivery Method Room Air Blood Pressure (90/60-120/80) 185/92 H Blood Pressure Mean (mm Hg) 123 Source Monitor Position Semi-Fowlers Blood Pressure Location Left Arm History Since Last Visit- (Skip if this is Patient's initial visit) Have you changed medications since your No last visit? Any new allergies or adverse reactions No Had a fall/change in ADL's that may No increase risk of falls Signs or symptoms of abuse and/or No neglect since last visit Have you been in the hospital since your No last visit? Has dressing in place as prescribed Yes Has compression in place as prescribed No Has offloadiing in place as prescribed No Experienced any changes in pain level or No management Left Footwear Regular Shoe Right Footwear Regular Shoe Pain Scale: 0-10 Numeric Is Patient Pain Free? Yes - Nurse 1 - General Ulcer Measurement Start: 10/24/23 15:05 Freq: Status: Active Protocol: Activity Type Activity Date Activity User E-sign Co-sign Detail Recorded Client Recorded Date Recorded By Document 10/24/23 15:05 KW Desktop 10/24/23 15:18 KW 10/24/23 15:05 Wound Center Nurse 1 #1 R post LE- post-op cluster -Current Size (cm) - Length 2.2 -Current Size (cm) - Width 0.5 -Current Size (cm) - Depth 0.2 -Total Square Cm 1.10 -Exudate Amt Medium -Exudate Type Yellow/Green -Wound Margin Distinct, Outline Attached -Granulation Amt Small (1-33%) -Granulation Quality [place] -Necrosis Amt Large (67-100%) -Necrotic Tissue Type Adherent Slough -Texture (Rachele-wound Skin Appearance) Assessed -Moisture (Rachele-wound Skin Appearance) Assessed -Color (Rachele-wound Skin Appearance) Assessed -Temperature (Rachele-wound Skin No Abnormality Appearance) (Pt Warm) -Ulcer Cleansing Rinsed/ Irrigated with Saline -Anesthetic Used 5% Lidocaine Gel Right Calf (cm) 62.2 Right Ankle (cm) 41 WC - Nurse 2 - General Ulcer CM Notes Start: 10/24/23 15:05 Freq: Status: Active Protocol: Activity Type Activity Date Activity User E-sign Co-sign Detail Recorded Client Recorded Date Recorded By Document 10/24/23 15:35 Laptop 10/24/23 15:37 JF 10/24/23 15:35 Wound Center Nurse 2 #1 R post LE- post-op cluster -Time 15:37 -Correct Patient Yes -Correct Side, Site, Position Yes -Correct Procedure Yes -Procedure Performed Yes -Type of Procedure Debridement -Clinical Debridement Muscle / Fascia -Tissue Removed Muscle -Post Debridement (cm) - Length 1.5 -Post Debridement (cm) - Width 2.4 -Post Debridement (cm) - Depth 1.4 -Total Square (Post) (cm) 3.60 -Area of Debridement (cm) - Length 1.5 -Area of Debridement (cm) - Width 2.4 -Total Square (Area) (cm) 3.60 -Tunneling No -Undermining/Tunneling No -Circular Undermining No -Wound/Ulcer Outcome Not Healed -Ulcer Cleansing Rinsed/ Irrigated with Saline -Foul Odor after Cleansing No -Bioengineered Tissue No -Bleeding Controlled with Pressure -Treatment Response Procedure Tolerated Well -Offloading Yes -Type of Offloading Knee Walker -Debridement - Muscle / Fascia, 1st Yes 20sq cm Pain Scale: 0-10 Numeric Is Patient Pain Free? Yes - Nurse 3 - General Ulcer D/C NN Start: 10/24/23 15:05 Freq: Status: Active Protocol: Activity Type Activity Date Activity User E-sign Co-sign Detail Recorded Client Recorded Date Recorded By Document 10/24/23 15:48 DL Desktop 10/24/23 15:49 DL 10/24/23 15:48 Wound Care Center Nurse 3 #1 R post LE- post-op cluster -Ulcer Cleansing Rinsed/ Irrigated with Saline -Foul Odor after Cleansing No -Other Dressing betadine -Primary Dressing Covered/Secured with Dry Gauze, Secured with Tape Right -Multi-Layered Wrap Application Multi-Layer Comp - Right ($ ) Treatment Response Procedure Tolerated Well Pain Scale: 0-10 Numeric Is Patient Pain Free? 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 All findings were discussed with the patient. All questions were answered to the patient's satisfaction. Excisional debridement down to and including subcutaneous tissue with a number 3mm dermal curette to the right posterior calf. Predebridement measurement was 1.3 x 2.2 x 0.6 cm. Postdebridement measurement is 1.5 x 2.4 x 1.4 cm. The right lower extremity right calf full-thickness ulceration was wiped clean and patted dry. The ulceration was dressed with Betadine soaked gauze and dry sterile dressing with 3M compression wrap. Patient was instructed to follow-up if the wrap rolls down. She is to be nonweightbearing to the right lower extremity which she is doing so with a knee scooter. Patient educated on strict blood sugar control which she was understanding of. She will be placed on an antibiotic, ciprofloxacin 750 mg twice daily for 14 days. We are still pending skin graft substitute to the right posterior calf. Follow-up at the wound care center with Dr. Lord in 1 week. (2) Wound dehiscence, surgical: CODE(S): T81.31XA - Disruption of external operation (surgical) wound, notelsewhere classified, initial encounter QUALIFIERS: Encounter type: subsequent encounter Qualified Code(s): T81.31XD - Disruption of external operation (surgical) wound, not elsewhere classified, subsequent encounter (3) Lymphedema, not elsewhere classified: CODE(S): I89.0 - Lymphedema, not elsewhere classified (4) Cellulitis: CODE(S): L03.90 - Cellulitis, unspecified QUALIFIERS: Site of cellulitis: extremity Site of cellulitis of extremity: lower extremity Laterality: right Qualified Code(s): L03.115 - Cellulitis of right lower limb PLAN: The patient will be placed on Cipro 750 mg twice daily for 14 days. The patient's bacterial culture grew back Enterococcus Cloacae complex 10/24/23 1601 <Electronically signed by Sebas Lord DPM> Cosigner Signature (if applicable): CC: ~ Signed [facility] Work Phone: [phone]) 155-989201-31-2024 Progress note Author Sebas Lord [facility] October 17, 2023 4:16pm Note Date/Time October 17, 2023 4 :16pm [facility] [address] [place] [address] Progress Note - Wound Care 10/17/23 1609 MR#: [id number] Acct: [id number] Name: NANCI RODRIGUEZ Rep #:[id number] : 1980 43 From: Sebas Dhaliwal PM PCP: Dr. Rodri Chauhan MD Status:RE G RCR Location: History of Present Illness Date of Service: 10/17/23 Chief Complaint: Ulceration right posterior leg History of Wound: Ulceration right posterior leg Subjective Subjective Ms. Rodriguez is a 43-year-old diabetic female presenting to the wound care centertoday for follow-up and evaluation status post incision and drainage with delayed primary closure to the posterior aspect of the right calf full-thicknessulceration. Date of surgery: 09/28/2023. Patient admitts her pain is improved. Patient states she has been nonweightbearing to the right lower extremity assistive knee scooter that she got on Sunday. She has kept her 3M dressing clean dry and intact denies any strikethrough. Denies trauma denies constitutional symptoms. No other pedal complaints at this time.. Objective Data Objective Data Vital Signs: Vital Signs Temp Pulse Resp BP O2 Del Method 96.6 F L 119 H 20 H 169/93 H Room Air 10/17/23 15:22 10/17/23 15:22 10/17/23 15:22 10/17/23 15:22 10/17/23 15:22 Oxygen Delivery Method Room Air Weight: 160.223 kg Body Mass Index (BMI) 62.5 Physical Exam Narrative Vascular: DP and PT pulses palpable. CFT is brisk. Nonpitting edema appreciated to right lower extremity. No erythema or proximal streaking is appreciated. Neurological: Light touch intact. Patient response to painful stimuli. Dermatological: Evidence of surgical wound dehiscence secondary to nonweightbearing and lack of medical compliance. Full-thickness ulceration measures 1.6 x 1.4 x 0.8 cm. Wound base is granular nature with sanguinous drainage after debridement. No evidence of erythema or proximal streaking. Cannot rule out infection at this time. Excisional debridement down to and including subcutaneous tissue with a number 3mm dermal curette to the right posterior calf. Predebridement measurement was 1.3 x 1.2 x 0.4 cm. Postdebridement measurement is 1.6 x 1.4 x 0.8 cm. Musculoskeletal: No pain with calf compression. Mild pain to palpation full- thickness ulceration right calf. Debridement Note Debridement Note Debridement Free Text: Excisional debridement down to and including subcutaneoustissue with a number 3 mm dermal curette to the right posterior calf. Predebridement measurement was 1.3 x 1.2 x 0.4 cm. Postdebridement measurement is 1.6 x 1.4 x 0.8 cm. Post-Debridement Measurements and Additional Note: Post-Debridement Measurements/Treatment - Nurse 1 - General Ulcer Assessment Start: 09/19/23 15:25 Freq: Status: Active Protocol: WATSON Activity Type Activity Date Activity User E-sign Co-sign Detail Recorded Client Recorded Date Recorded By Document 09/19/23 15:25 KW Desktop 09/19/23 15:30 KW Document 10/03/23 15:15 KW Desktop 10/03/23 15:38 KW Document 10/08/23 14:43 BMF Desktop 10/08/23 14:55 BMF Document 10/10/23 14:38 KW Desktop 10/10/23 14:51 KW Document 10/15/23 14:48 DL Desktop 10/15/23 15:05 DL Document 10/17/23 15:22 KW Desktop 10/17/23 15:28 KW 09/19/23 10/03/23 10/08/23 15:25 15:15 14:43 - Today's Visit Information Type of service Follow-up Visit Follow-up Visit Nurse-only (Physician/SENIOR TRAINER (Physician/SENIOR TRAINER Visit ) ) Arrival Mode Ambulatory Wheelchair Ambulatory Arrival Mode (Other) Transfer Assistance None Patient Identification Verified (Name & Yes Yes ) Patient Requires Transmission-Based No Precautions Height and Weight Body Mass Index (BMI) 62.5 62.5 62.5 BMI Classification Obese Obese Obese Vital Signs Temperature (97.8 F-99.1 F) 97.3 F L Temperature Source Temporal Pulse Rate (60-100) 111 H 110 H 106 H Pulse Location Monitor Monitor Respiratory Rate (12-18) 18 20 H 16 Respiratory rate source Observation Observation Observation Oxygen Delivery Method Room Air Room Air Room Air Blood Pressure (90/60-120/80) 164/89 H 140/82 H 172/84 H Blood Pressure Mean (mm Hg) 114 101 113 Source Monitor Monitor Monitor Position Sitting Sitting Sitting Blood Pressure Location Left Arm Left Forearm Left Forearm History Since Last Visit- (Skip if this is Patient's initial visit) Have you changed medications since your No No No last visit? Any new allergies or adverse reactions No No No Had a fall/change in ADL's that may No No No increase risk of falls Signs or symptoms of abuse and/or No No No neglect since last visit Have you been in the hospital since your No Yes No last visit? Has dressing in place as prescribed Yes Yes Yes Has compression in place as prescribed Yes Yes Yes Has offloadiing in place as prescribed No Yes N/A Experienced any changes in pain level or No No No management Left Footwear Regular Shoe Slipper Regular Shoe Right Footwear Regular Shoe Removable Cast Regular Shoe Walker/Walking Boot Pain Scale: 0-10 Numeric Is Patient Pain Free? Yes Yes Yes 10/10/23 10/15/23 10/17/23 14:38 14:48 15:22 WC - Today's Visit Information Type of service Follow-up Visit Nurse-only Follow-up Visit (Physician/SENIOR TRAINER Visit (Physician/SENIOR TRAINER ) ) Arrival Mode Ambulatory Ambulatory, Ambulatory, Walker Other Arrival Mode (Other) knee walker knee roller Transfer Assistance Patient Identification Verified (Name & Yes Yes Yes ) Patient Requires Transmission-Based No Precautions Height and Weight Body Mass Index (BMI) 62.5 62.5 62.5 BMI Classification Obese Obese Obese Vital Signs Temperature (97.8 F-99.1 F) 96.8 F L 98.3 F 96.6 F L Temperature Source Temporal Temporal Temporal Pulse Rate (60-100) 108 H 116 H 119 H Pulse Location Monitor Monitor Monitor Respiratory Rate (12-18) 18 22 H 20 H Respiratory rate source Observation Observation Observation Oxygen Delivery Method Room Air Room Air Blood Pressure (90/60-120/80) 158/79 H 164/80 H 169/93 H Blood Pressure Mean (mm Hg) 105 108 118 Source Monitor Monitor Monitor Position Semi-Fowlers Sitting Blood Pressure Location Right Forearm Right Arm History Since Last Visit- (Skip if this is Patient's initial visit) Have you changed medications since your No No No last visit? Any new allergies or adverse reactions No No No Had a fall/change in ADL's that may No No No increase risk of falls Signs or symptoms of abuse and/or No No No neglect since last visit Have you been in the hospital since your No No No last visit? Has dressing in place as prescribed Yes Yes Yes Has compression in place as prescribed Yes Yes Yes Has offloadiing in place as prescribed No N/A Yes Experienced any changes in pain level or No No No management Left Footwear Regular Shoe Regular Shoe Right Footwear Regular Shoe Regular Shoe Pain Scale: 0-10 Numeric Is Patient Pain Free? Yes Yes Yes WC - Nurse 1 - General Ulcer Measurement Start: 09/19/23 15:25 Freq: Status: Active Protocol: Activity Type Activity Date Activity User E-sign Co-sign Detail Recorded Client Recorded Date Recorded By Document 09/19/23 15:25 KW Desktop 09/19/23 15:30 KW Document 10/03/23 15:15 KW Desktop 10/03/23 15:38 KW Document 10/08/23 14:43 BM Desktop 10/08/23 14:55 BMF Document 10/10/23 14:38 KW Desktop 10/10/23 14:51 KW Document 10/15/23 14:48 DL Desktop 10/15/23 15:05 DL Document 10/17/23 15:22 KW Desktop 10/17/23 15:28 KW 09/19/23 10/03/23 10/08/23 15:25 15:15 14:43 Wound Center Nurse 1 #1 R post LE- post-op cluster -Current Size (cm) - Length 0.1 -Current Size (cm) - Width 0.1 -Current Size (cm) - Depth 0.1 -Total Square Cm 0.01 -Date of Last Picture (Recall this field) -Photo Taken -Exudate Amt Small -Exudate Type Serosanguineous -Wound Margin Distinct, Outline Attached -Granulation Amt Medium (34-66%) -Granulation Quality [place] -Necrosis Amt Medium (34-66%) -Necrotic Tissue Type Adherent Slough -Texture (Rachele-wound Skin Appearance) Assessed Assessed -Moisture (Rachele-wound Skin Appearance) Maceration Assessed -Color (Rachele-wound Skin Appearance) Assessed Assessed -Temperature (Rachele-wound Skin No Abnormality Appearance) (Pt Warm) -Tenderness on Palpation (Rachele-wound Skin Appearance) -Ulcer Cleansing Rinsed/ Soap and Water Irrigated with Saline -Foul Odor after Cleansing -Anesthetic Used 5% Lidocaine Gel -Wound Comment(s) post surg. left wound viel in tact Lower Limb Edema Present Yes Right Calf (cm) 66.3 59.3 58 Right Ankle (cm) 33 33.5 29.9 10/10/23 10/15/23 10/17/23 14:38 14:48 15:22 Wound Center Nurse 1 #1 R post LE- post-op cluster -Current Size (cm) - Length 2 -Current Size (cm) - Width 0.6 -Current Size (cm) - Depth 0.3 -Total Square Cm 1.2 -Date of Last Picture (Recall this 10/10/23 field) -Photo Taken Yes -Exudate Amt None Present Medium -Exudate Type Yellow/Green -Wound Margin Indistinct, Non Distinct, -Visible Outline Attached -Granulation Amt Small (1-33%) -Granulation Quality [place] -Necrosis Amt Large (67-100%) -Necrotic Tissue Type Adherent Slough -Texture (Rachele-wound Skin Appearance) No Abnormality Assessed -Moisture (Rachele-wound Skin Appearance) Maceration No Abnormality Assessed -Color (Rachele-wound Skin Appearance) No Abnormality Assessed -Temperature (Rachele-wound Skin No Abnormality No Abnormality Appearance) (Pt Warm) (Pt Warm) -Tenderness on Palpation (Rachele-wound No Skin Appearance) -Ulcer Cleansing Soap and Water Soap and Water -Foul Odor after Cleansing No -Anesthetic Used 5% Lidocaine Gel -Wound Comment(s) Sutures intact, Steri Strip drainage and intact maceration noted Lower Limb Edema Present Right Calf (cm) 59.5 61 Right Ankle (cm) 41.5 30.2 WC - Nurse 2 - General Ulcer CM Notes Start: 09/19/23 15:25 Freq: Status: Active Protocol: Activity Type Activity Date Activity User E-sign Co-sign Detail Recorded Client Recorded Date Recorded By Document 09/19/23 15:37 KW Desktop 09/19/23 15:41 KW Document 10/03/23 15:46 JF Laptop 10/03/23 15:50 JF Document 10/10/23 15:33 JF Laptop 10/10/23 15:38 JF Document 10/17/23 15:43 JF Laptop 10/17/23 15:48 JF 09/19/23 10/03/23 10/10/23 15:37 15:46 15:33 Wound Center Nurse 2 #1 R post LE- post-op cluster -Time 15:37 15:34 -Correct Patient Yes No No -Correct Side, Site, Position Yes No No -Correct Procedure Yes No No -Procedure Performed Yes No No -Type of Procedure Debridement -Clinical Debridement Subcutaneous -Tissue Removed Subcutaneous -Post Debridement (cm) - Length 0.4 -Post Debridement (cm) - Width 0.9 -Post Debridement (cm) - Depth 0.2 -Total Square (Post) (cm) 0.36 -Area of Debridement (cm) - Length 0.4 -Area of Debridement (cm) - Width 0.9 -Total Square (Area) (cm) 0.36 -Tunneling No No -Undermining/Tunneling No No -Circular Undermining No No -Wound/Ulcer Outcome Not Healed Not Healed Not Healed -Ulcer Cleansing Rinsed/ Rinsed/ Irrigated with Irrigated with Saline Saline -Foul Odor after Cleansing No No -Bioengineered Tissue No No -Bleeding Controlled with Pressure Pressure -Treatment Response Procedure Procedure Tolerated Well Tolerated Well -Offloading No No -Debridement - Subq, 1st 20sq cm Yes No No Pain Scale: 0-10 Numeric Is Patient Pain Free? Yes Yes Yes 10/17/23 15:43 Wound Center Nurse 2 #1 R post LE- post-op cluster -Time 15:44 -Correct Patient Yes -Correct Side, Site, Position Yes -Correct Procedure Yes -Procedure Performed Yes -Type of Procedure Debridement -Clinical Debridement Subcutaneous -Tissue Removed Subcutaneous -Post Debridement (cm) - Length 1.6 -Post Debridement (cm) - Width 1.4 -Post Debridement (cm) - Depth 0.8 -Total Square (Post) (cm) 2.24 -Area of Debridement (cm) - Length 1.6 -Area of Debridement (cm) - Width 1.4 -Total Square (Area) (cm) 2.24 -Tunneling No -Undermining/Tunneling No -Circular Undermining No -Wound/Ulcer Outcome Not Healed -Ulcer Cleansing Rinsed/ Irrigated with Saline -Foul Odor after Cleansing No -Bioengineered Tissue No -Bleeding Controlled with Pressure -Treatment Response -Offloading -Debridement - Subq, 1st 20sq cm Yes Pain Scale: 0-10 Numeric Is Patient Pain Free? Yes WC - Nurse 3 - General Ulcer D/C NN Start: 09/19/23 15:25 Freq: Status: Active Protocol: Activity Type Activity Date Activity User E-sign Co-sign Detail Recorded Client Recorded Date Recorded By Document 09/19/23 15:49 KW Desktop 09/19/23 15:49 KW Document 10/03/23 15:55 KW Desktop 10/03/23 15:56 KW Document 10/08/23 14:43 BMF Desktop 10/08/23 14:55 BMF Document 10/10/23 15:43 BMF Desktop 10/10/23 15:44 BMF Document 10/15/23 14:48 DL Desktop 10/15/23 15:05 DL Document 10/17/23 15:57 KW Desktop 10/17/23 15:58 KW 09/19/23 10/03/23 10/08/23 15:49 15:55 14:43 Wound Care Center Nurse 3 #1 R post LE- post-op cluster -Ulcer Cleansing Soap and Water -Foul Odor after Cleansing No -Primary Dressing Applied C Hydrogel ($) NonAdherent NonAdherent Contact Layer, Contact Layer Other -Other Dressing betadine BETADINE, ADAPTIC, BETADINE SOAKED GAUZE, ABD -Primary Dressing Covered/Secured with Dry Gauze, Dry Gauze & Secured with Roll Gauze, Tape Secured with Tape Right -Lotion applied to leg before Yes compression wrap -Multi-Layered Wrap Application Multi-Layer Multi-Layer Comp - Right ($ Comp - Right ($ ) ) -Tubular Bandage Double Layer -Size of Tubigrip Used Size F -Size F ($) 2 -Other Left -Tubular Bandage Double Layer -Size of Tubigrip Used Size F -Size F ($) 2 Treatment Response Procedure Tolerated Well Vital Signs Temperature (97.8 F-99.1 F) Temperature Source Pulse Rate (60-100) 106 H Pulse Location Monitor Respiratory Rate (12-18) 16 Respiratory rate source Observation Oxygen Delivery Method Room Air Blood Pressure (90/60-120/80) 172/84 H Blood Pressure Mean (mm Hg) 113 Source Monitor Position Sitting Blood Pressure Location Left Forearm Pain Scale: 0-10 Numeric Is Patient Pain Free? Yes Yes Yes WC - Visit Discharge Discharge Condition Stable Stable Ambulatory Status Ambulatory Wheelchair Ambulatory Transportation Private Auto Private Auto Private Auto Medication Reconcilliation completed & No No provided to patient/care provider Clinical Summary of Care Provided Yes Notes: 10/10/23 10/15/23 10/17/23 15:43 14:48 15:57 Wound Care Center Nurse 3 #1 R post LE- post-op cluster -Ulcer Cleansing Rinsed/ Soap and Water Irrigated with Saline -Foul Odor after Cleansing No No -Primary Dressing Applied -Other Dressing BETADINE SOAKED betadine soaked GAUZE; DRSG gauze PER GM RN -Primary Dressing Covered/Secured with Dry Gauze, Dry Gauze & Secured with Roll Gauze, Tape Secured with Tape Right -Lotion applied to leg before compression wrap -Multi-Layered Wrap Application Multi-Layer Multi-Layer Multi-Layer Comp - Right ($ Comp - Right ($ Comp - Right ($ ) ) ) -Tubular Bandage -Size of Tubigrip Used -Size F ($) -Other PER GM RN Left -Tubular Bandage Double Layer -Size of Tubigrip Used Size F -Size F ($) 2 Treatment Response Procedure Procedure Tolerated Well Tolerated Well Vital Signs Temperature (97.8 F-99.1 F) 98.3 F Temperature Source Temporal Pulse Rate (60-100) 116 H Pulse Location Monitor Respiratory Rate (12-18) 22 H Respiratory rate source Observation Oxygen Delivery Method Blood Pressure (90/60-120/80) 164/80 H Blood Pressure Mean (mm Hg) 108 Source Monitor Position Blood Pressure Location Pain Scale: 0-10 Numeric Is Patient Pain Free? Yes Yes Yes WC - Visit Discharge Discharge Condition Stable Stable Stable Ambulatory Status Ambulatory Walker Ambulatory Transportation Private Auto Private Auto Private Auto Medication Reconcilliation completed & No provided to patient/care provider Clinical Summary of Care Provided Yes Notes: using knee scooter Assessment/Plan Assessment/Plan (1) Non-pressure chronic ulcer of unspecified part of right lower leg with fat layer exposed: CODE(S): L97.912 - Non-pressure chronic ulcer of unspecified part of rightlower leg with fat layer exposed PLAN: Patient was examined and evaluated. All findings were discussed with the patient. All questions were answered to the patient's satisfaction. Excisional debridement down to and including subcutaneous tissue with a number 3mm dermal curette to the right posterior calf. Predebridement measurement was 1.3 x 1.2 x 0.4 cm. Postdebridement measurement is 1.6 x 1.4 x 0.8 cm. The right calf ulceration was dressed with Betadine soaked gauze followed by drysterile dressing and a 3M compression wrap for the right lower extremity. Patient was instructed to be nonweightbearing to right lower extremity with assistive knee scooter. She was understanding of this. Cultures were taken of the ulceration to rule out any infection prior to TheraSkin graft placement. We begin authorization for TheraSkin skin graft substitute. Follow-up at the wound care center with Dr. Lord in 1 week. (2) Lymphedema, not elsewhere classified: CODE(S): I89.0 - Lymphedema, not elsewhere classified (3) Acute painful diabetic polyneuropathy: CODE(S): E11.42 - Type 2 diabetes mellitus with diabetic polyneuropathy (4) Wound dehiscence, surgical: CODE(S): T81.31XA - Disruption of external operation (surgical) wound, notelsewhere classified, initial encounter 10/17/23 1616 <Electronically signed by Sebas Lord DPM> Cosigner Signature (if applicable): CC: ~ Signed [facility] Work Phone: [phone] 614-378501-24-2024 Progress note Author Sebas Lord [facility] October 10, 2023 9:44pm Note Date/Time October 10, 2023 9 :44pm [facility] [address] [place] [id number] Progress Note - Wound Care 10/10/232136 MR#: [id number] Acct: [id number] Name: NANCI RODRIGUEZ Rep #:[id number] : 1980 43 From: Se[facility] PCP: Dr. Rodri Chauhan MD Status:RE G RCR Location: History of Present Illness Date of Service: 10/10/23 Chief Complaint: Ulceration right posterior leg History of Wound: Ulceration right posterior leg Subjective Subjective Ms. Rodriguez is a 43-year-old diabetic female presenting to the wound care center today for follow-up and evaluation status post incision and drainage with delayed primary closure to the posterior aspect of the right calf full-thicknessulceration. Date of surgery: 09/28/2023. Patient admitts her pain is improved. However, the patient states that she has been unable to be nonweightbearing to the right lower extremity due to lack of help at home. She has attempted crutches but has been unsuccessful with them. She has not been able to get a knee scooter secondary to financial instability. She admits to being around people that smoke. She states that she has decreased her smoking. She admits her blood sugar has been well controlled. She denies any drainage to the dressing. She denies trauma. Denies constitutional symptoms. No other pedal complaints at this time. Objective Data Objective Data Vital Signs: Vital Signs Temp Pulse Resp BP O2 Del Method 96.8 F L 108 H 18 158/79 H Room Air 10/10/23 14:38 10/10/23 14:38 10/10/23 14:38 10/10/23 14:38 10/10/23 14:38 Oxygen Delivery Method Room Air Weight: 160.223 kg Body Mass Index (BMI) 62.5 Physical Exam Narrative Neurovascular status is unchanged. Nonpitting edema appreciated to right lower extremity. Incision is well coapted with suture, with some incisional maceration secondary to drainage. No evidence of erythema, proximal streaking,drainage, surgical wound dehiscence or sign of infection. Mild palpatory tenderness appreciated to the incision to the posterior right calf. No pain with calf compression. Debridement Note Debridement Note Post-Debridement Measurements and Additional Note: Post-Debridement Measurements/Treatment - Nurse 1 - General Ulcer Assessment Start: 09/19/23 15:25 Freq: Status: Active Protocol: [email or web address] Activity Type Activity Date Activity User E-sign Co-sign Detail Recorded Client Recorded Date Recorded By Document 09/19/23 15:25 KW Desktop 09/19/23 15:30 KW Document 10/03/23 15:15 KW Desktop 10/03/23 15:38 KW Document 10/08/23 14:43 BMF Desktop 10/08/23 14:55 BMF Document 10/10/23 14:38 KW Desktop 10/10/23 14:51 KW 09/19/23 10/03/23 10/08/23 15:25 15:15 14:43 - Today's Visit Information Type of service Follow-up Visit Follow-up Visit Nurse-only (Physician/SENIOR TRAINER (Physician/SENIOR TRAINER Visit ) ) Arrival Mode Ambulatory Wheelchair Ambulatory Transfer Assistance None Patient Identification Verified (Name & Yes Yes ) Patient Requires Transmission-Based No Precautions Height and Weight Body Mass Index (BMI) 62.5 62.5 62.5 BMI Classification Obese Obese Obese Vital Signs Temperature (97.8 F-99.1 F) 97.3 F L Temperature Source Temporal Pulse Rate (60-100) 111 H 110 H 106 H Pulse Location Monitor Monitor Respiratory Rate (12-18) 18 20 H 16 Respiratory rate source Observation Observation Observation Oxygen Delivery Method Room Air Room Air Room Air Blood Pressure (90/60-120/80) 164/89 H 140/82 H 172/84 H Blood Pressure Mean (mm Hg) 114 101 113 Source Monitor Monitor Monitor Position Sitting Sitting Sitting Blood Pressure Location Left Arm Left Forearm Left Forearm History Since Last Visit- (Skip if this is Patient's initial visit) Have you changed medications since your No No No last visit? Any new allergies or adverse reactions No No No Had a fall/change in ADL's that may No No No increase risk of falls Signs or symptoms of abuse and/or No No No neglect since last visit Have you been in the hospital since your No Yes No last visit? Has dressing in place as prescribed Yes Yes Yes Has compression in place as prescribed Yes Yes Yes Has offloadiing in place as prescribed No Yes N/A Experienced any changes in pain level or No No No management Left Footwear Regular Shoe Slipper Regular Shoe Right Footwear Regular Shoe Removable Cast Regular Shoe Walker/Walking Boot Pain Scale: 0-10 Numeric Is Patient Pain Free? Yes Yes Yes 10/10/23 14:38 WC - Today's Visit Information Type of service Follow-up Visit (Physician/SENIOR TRAINER ) Arrival Mode Ambulatory Transfer Assistance Patient Identification Verified (Name & Yes ) Patient Requires Transmission-Based Precautions Height and Weight Body Mass Index (BMI) 62.5 BMI Classification Obese Vital Signs Temperature (97.8 F-99.1 F) 96.8 F L Temperature Source Temporal Pulse Rate (60-100) 108 H Pulse Location Monitor Respiratory Rate (12-18) 18 Respiratory rate source Observation Oxygen Delivery Method Room Air Blood Pressure (90/60-120/80) 158/79 H Blood Pressure Mean (mm Hg) 105 Source Monitor Position Semi-Fowlers Blood Pressure Location Right Forearm History Since Last Visit- (Skip if this is Patient's initial visit) Have you changed medications since your No last visit? Any new allergies or adverse reactions No Had a fall/change in ADL's that may No increase risk of falls Signs or symptoms of abuse and/or No neglect since last visit Have you been in the hospital since your No last visit? Has dressing in place as prescribed Yes Has compression in place as prescribed Yes Has offloadiing in place as prescribed No Experienced any changes in pain level or No management Left Footwear Regular Shoe Right Footwear Regular Shoe Pain Scale: 0-10 Numeric Is Patient Pain Free? Yes WC - Nurse 1 - General Ulcer Measurement Start: 09/19/23 15:25 Freq: Status: Active Protocol: Activity Type Activity Date Activity User E-sign Co-sign Detail Recorded Client Recorded Date Recorded By Document 09/19/23 15:25 KW Desktop 09/19/23 15:30 KW Document 10/03/23 15:15 KW Desktop 10/03/23 15:38 KW Document 10/08/23 14:43 Conjectur Desktop 10/08/23 14:55 BMF Document 10/10/23 14:38 KW Desktop 10/10/23 14:51 KW 09/19/23 10/03/23 10/08/23 15:25 15:15 14:43 Wound Center Nurse 1 #1 R post LE- post surg -Current Size (cm) - Length 0.1 -Current Size (cm) - Width 0.1 -Current Size (cm) - Depth 0.1 -Total Square Cm 0.01 -Date of Last Picture (Recall this field) -Photo Taken -Exudate Amt Small -Exudate Type Serosanguineous -Wound Margin Distinct, Outline Attached -Granulation Amt Medium (34-66%) -Granulation Quality [place] -Necrosis Amt Medium (34-66%) -Necrotic Tissue Type Adherent Slough -Texture (Rachele-wound Skin Appearance) Assessed Assessed -Moisture (Rachele-wound Skin Appearance) Maceration Assessed -Color (Rachele-wound Skin Appearance) Assessed Assessed -Temperature (Rachele-wound Skin No Abnormality Appearance) (Pt Warm) -Ulcer Cleansing Rinsed/ Soap and Water Irrigated with Saline -Anesthetic Used 5% Lidocaine Gel -Wound Comment(s) post surg. left wound viel in tact Lower Limb Edema Present Yes Right Calf (cm) 66.3 59.3 58 Right Ankle (cm) 33 33.5 29.9 10/10/23 14:38 Wound Center Nurse 1 #1 R post LE- post surg -Current Size (cm) - Length -Current Size (cm) - Width -Current Size (cm) - Depth -Total Square Cm -Date of Last Picture (Recall this 10/10/23 field) -Photo Taken Yes -Exudate Amt -Exudate Type -Wound Margin -Granulation Amt -Granulation Quality -Necrosis Amt -Necrotic Tissue Type -Texture (Rachele-wound Skin Appearance) -Moisture (Rachele-wound Skin Appearance) Maceration -Color (Rachele-wound Skin Appearance) -Temperature (Rachele-wound Skin Appearance) -Ulcer Cleansing -Anesthetic Used -Wound Comment(s) Sutures intact, drainage and maceration noted Lower Limb Edema Present Right Calf (cm) 59.5 Right Ankle (cm) 41.5 WC - Nurse 2 - General Ulcer CM Notes Start: 09/19/23 15:25 Freq: Status: Active Protocol: Activity Type Activity Date Activity User E-sign Co-sign Detail Recorded Client Recorded Date Recorded By Document 09/19/23 15:37 [employer] Desktop 09/19/23 15:41 KW Document 10/03/23 15:46 Laptop 10/03/23 15:50 Document 10/10/23 15:33 Laptop 10/10/23 15:38 09/19/23 10/03/23 10/10/23 15:37 15:46 15:33 Wound Center Nurse 2 #1 R post LE- post surg -Time 15:37 15:34 -Correct Patient Yes No No -Correct Side, Site, Position Yes No No -Correct Procedure Yes No No -Procedure Performed Yes No No -Type of Procedure Debridement -Clinical Debridement Subcutaneous -Tissue Removed Subcutaneous -Post Debridement (cm) - Length 0.4 -Post Debridement (cm) - Width 0.9 -Post Debridement (cm) - Depth 0.2 -Total Square (Post) (cm) 0.36 -Area of Debridement (cm) - Length 0.4 -Area of Debridement (cm) - Width 0.9 -Total Square (Area) (cm) 0.36 -Tunneling No No -Undermining/Tunneling No No -Circular Undermining No No -Wound/Ulcer Outcome Not Healed Not Healed Not Healed -Ulcer Cleansing Rinsed/ Rinsed/ Irrigated with Irrigated with Saline Saline -Foul Odor after Cleansing No No -Bioengineered Tissue No No -Bleeding Controlled with Pressure Pressure -Treatment Response Procedure Procedure Tolerated Well Tolerated Well -Offloading No No -Debridement - Subq, 1st 20sq cm Yes No No Pain Scale: 0-10 Numeric Is Patient Pain Free? Yes Yes Yes WC - Nurse 3 - General Ulcer D/C NN Start: 09/19/23 15:25 Freq: Status: Active Protocol: Activity Type Activity Date Activity User E-sign Co-sign Detail Recorded Client Recorded Date Recorded By Document 09/19/23 15:49 KW Desktop 09/19/23 15:49 KW Document 10/03/23 15:55 [employer] Desktop 10/03/23 15:56 KW Document 10/08/23 14:43 [facility] Desktop 10/08/23 14:55 [facility] Document 10/10/23 15:43 [facility] Desktop 10/10/23 15:44 [facility] 09/19/23 10/03/23 10/08/23 15:49 15:55 14:43 Wound Care Center Nurse 3 #1 R post LE- post surg -Ulcer Cleansing Soap and Water -Foul Odor after Cleansing No -Primary Dressing Applied C Hydrogel ($) NonAdherent NonAdherent Contact Layer, Contact Layer Other -Other Dressing betadine BETADINE, ADAPTIC, BETADINE SOAKED GAUZE, ABD -Primary Dressing Covered/Secured with Dry Gauze, Dry Gauze & Secured with Roll Gauze, Tape Secured with Tape Right -Lotion applied to leg before Yes compression wrap -Multi-Layered Wrap Application Multi-Layer Multi-Layer Comp - Right ($ Comp - Right ($ ) ) -Tubular Bandage Double Layer -Size of Tubigrip Used Size F -Size F ($) 2 -Other Left -Tubular Bandage Double Layer -Size of Tubigrip Used Size F -Size F ($) 2 Treatment Response Procedure Tolerated Well Vital Signs Pulse Rate (60-100) 106 H Pulse Location Monitor Respiratory Rate (12-18) 16 Respiratory rate source Observation Oxygen Delivery Method Room Air Blood Pressure (90/60-120/80) 172/84 H Blood Pressure Mean (mm Hg) 113 Source Monitor Position Sitting Blood Pressure Location Left Forearm Pain Scale: 0-10 Numeric Is Patient Pain Free? Yes Yes Yes WC - Visit Discharge Discharge Condition Stable Stable Ambulatory Status Ambulatory Wheelchair Ambulatory Transportation Private Auto Private Auto Private Auto Medication Reconcilliation completed & No No provided to patient/care provider Clinical Summary of Care Provided Yes 10/10/23 15:43 Wound Care Center Nurse 3 #1 R post LE- post surg -Ulcer Cleansing Rinsed/ Irrigated with Saline -Foul Odor after Cleansing No -Primary Dressing Applied -Other Dressing BETADINE SOAKED GAUZE; DRSG PER GM RN -Primary Dressing Covered/Secured with Right -Lotion applied to leg before compression wrap -Multi-Layered Wrap Application Multi-Layer Comp - Right ($ ) -Tubular Bandage -Size of Tubigrip Used -Size F ($) -Other PER GM RN Left -Tubular Bandage Double Layer -Size of Tubigrip Used Size F -Size F ($) 2 Treatment Response Procedure Tolerated Well Vital Signs Pulse Rate (60-100) Pulse Location Respiratory Rate (12-18) Respiratory rate source Oxygen Delivery Method Blood Pressure (90/60-120/80) Blood Pressure Mean (mm Hg) Source Position Blood Pressure Location Pain Scale: 0-10 Numeric Is Patient Pain Free? Yes WC - Visit Discharge Discharge Condition Stable Ambulatory Status Ambulatory Transportation Private Auto Medication Reconcilliation completed & provided to patient/care provider Clinical Summary of Care Provided Assessment/Plan Assessment/Plan (1) Non-pressure chronic ulcer of unspecified part of right lower leg with fat layer exposed: CODE(S): L97.912 - Non-pressure chronic ulcer of unspecified part of rightlower leg with fat layer exposed PLAN: Patient was examined and evaluated. All findings were discussed with the patient. All questions were answered to the patient satisfaction. Patient was reeducated that she needs to be nonweightbearing to the right extremity with crutches, wheelchair, walker and or knee scooter. She will make attempts to get a knee scooter in the next day or 2. Patient understands the risks. The patient is recovering as expected with being noncompliant with her nonweightbearing. There is evidence of maceration across the incision. The sutures were removed without incident. The show evidence of a very small 0.3 x 0.3 x 0.1 wound dehiscence secondary to swelling and increased tension due to weightbearing. The incision was dressed with Betadine soaked gauze, dry steriledressing and a 3M compression wrap was placed on the right lower extremity. A 2layer Tubigrip was placed on the left lower extremity. The patient will follow-up Sunday for a nursing visit for evaluation and exchange of her 3M wrap as it will get loose. Was educated to the patient that she will be in aggressive compression wraps for2 to 4 weeks which she was understanding of. This will aid in healing the patient's incision on the posterior right leg. Patient will follow-up with Dr. Lord at the wound care center in 1 week. (2) Lymphedema, not elsewhere classified: CODE(S): I89.0 - Lymphedema, not elsewhere classified 10/10/232143 <Electronically signed by Sebas Lord DPLuis Enrique> Cosigner Signature (if applicable): CC: ~ Signed [facility] Work Phone: 1(333) 922-463301-17-2024 Progress note Author Sebas Lord [facility] October 03, 2023 4:11pm Note Date/Time October 03, 2023 4 :11pm [facility] [address] [place] [id number] Progress Note - Wound Care 10/03/23 1605 MR#: [id number] Acct: [id number] Name: NANCI RODRIGUEZ Rep #:[id number] : 1980 43 From: Sebas BEST PCP: Dr. Rodri Chauhan MD Status:RE Veronica R Location: History of Present Illness Date of Service: 10/03/23 Chief Complaint: Ulceration right posterior leg History of Wound: Ulceration right posterior leg Subjective Subjective Ms. Rodriguez is a 43-year-old diabetic female presenting to the wound care center today for follow-up and evaluation status post incision and drainage with delayed primary closure to the posterior aspect of the right calf full-thicknessulceration. Date of surgery: 09/28/2023. Patient manage she is having some painto the surgical area. She has kept her postoperative dressing clean dry and intact. In regards to postoperative compliance as well as nonweightbearing the patient has been weightbearing without assistance of crutches or knee scooter. The patient is understanding that she is not to put any weight on it and will continue to follow her postoperative course as she is concerned for possibly opening up her posterior right calf incision. She denies trauma. Denies constitutional symptoms. No other pedal complaints at this time. Objective Data Objective Data Vital Signs: Vital Signs Temp Pulse Resp BP O2 Del Method 97.3 F L 110 H 20 H 140/82 H Room Air 09/19/23 15:25 10/03/23 15:15 10/03/23 15:15 10/03/23 15:15 10/03/23 15:15 Oxygen Delivery Method Room Air Weight: 160.223 kg Body Mass Index (BMI) 62.5 Physical Exam Narrative Neurovascular status is unchanged. Nonpitting edema appreciated to right lower extremity. Incision is well coapted with suture. There is evidence of maceration and sanguinous drainage appreciated to the incision. No evidence of erythema, proximal streaking, drainage, surgical wound dehiscence or sign of infection. Mild palpatory tenderness appreciated to the incision to the posterior right calf. No pain with calf compression. Debridement Note Debridement Note Post-Debridement Measurements and Additional Note: Post-Debridement Measurements/Treatment - Nurse 1 - General Ulcer Assessment Start: 09/19/23 15:25 Freq: Status: Active Protocol: WC.LOWEXT Activity Type Activity Date Activity User E-sign Co-sign Detail Recorded Client Recorded Date Recorded By Document 09/19/23 15:25 KW Desktop 09/19/23 15:30 KW Document 10/03/23 15:15 KW Desktop 10/03/23 15:38 KW 09/19/23 10/03/23 15:25 15:15 - Today's Visit Information Type of service Follow-up Visit Follow-up Visit (Physician/SENIOR TRAINER (Physician/SENIOR TRAINER ) ) Arrival Mode Ambulatory Wheelchair Patient Identification Verified (Name & Yes ) Height and Weight Body Mass Index (BMI) 62.5 62.5 BMI Classification Obese Obese Vital Signs Temperature (97.8 F-99.1 F) 97.3 F L Temperature Source Temporal Pulse Rate (60-100) 111 H 110 H Pulse Location Monitor Respiratory Rate (12-18) 18 20 H Respiratory rate source Observation Observation Oxygen Delivery Method Room Air Room Air Blood Pressure (90/60-120/80) 164/89 H 140/82 H Blood Pressure Mean (mm Hg) 114 101 Source Monitor Monitor Position Sitting Sitting Blood Pressure Location Left Arm Left Forearm History Since Last Visit- (Skip if this is Patient's initial visit) Have you changed medications since your No No last visit? Any new allergies or adverse reactions No No Had a fall/change in ADL's that may No No increase risk of falls Signs or symptoms of abuse and/or No No neglect since last visit Have you been in the hospital since your No Yes last visit? Has dressing in place as prescribed Yes Yes Has compression in place as prescribed Yes Yes Has offloadiing in place as prescribed No Yes Experienced any changes in pain level or No No management Left Footwear Regular Shoe Slipper Right Footwear Regular Shoe Removable Cast Walker/Walking Boot Pain Scale: 0-10 Numeric Is Patient Pain Free? Yes Yes WC - Nurse 1 - General Ulcer Measurement Start: 09/19/23 15:25 Freq: Status: Active Protocol: Activity Type Activity Date Activity User E-sign Co-sign Detail Recorded Client Recorded Date Recorded By Document 09/19/23 15:25 KW Desktop 09/19/23 15:30 KW Document 10/03/23 15:15 KW Desktop 10/03/23 15:38 KW 09/19/23 10/03/23 15:25 15:15 Wound Center Nurse 1 #1 R post LE- post surg -Current Size (cm) - Length 0.1 -Current Size (cm) - Width 0.1 -Current Size (cm) - Depth 0.1 -Total Square Cm 0.01 -Exudate Amt Small -Exudate Type Serosanguineous -Wound Margin Distinct, Outline Attached -Granulation Amt Medium (34-66%) -Granulation Quality [place] -Necrosis Amt Medium (34-66%) -Necrotic Tissue Type Adherent Slough -Texture (Rachele-wound Skin Appearance) Assessed Assessed -Moisture (Rachele-wound Skin Appearance) Maceration Assessed -Color (Rachele-wound Skin Appearance) Assessed Assessed -Temperature (Rachele-wound Skin No Abnormality Appearance) (Pt Warm) -Ulcer Cleansing Rinsed/ Soap and Water Irrigated with Saline -Anesthetic Used 5% Lidocaine Gel -Wound Comment(s) post surg. left wound viel in tact Right Calf (cm) 66.3 59.3 Right Ankle (cm) 33 33.5 WC - Nurse 2 - General Ulcer CM Notes Start: 09/19/23 15:25 Freq: Status: Active Protocol: Activity Type Activity Date Activity User E-sign Co-sign Detail Recorded Client Recorded Date Recorded By Document 09/19/23 15:37 KW Minboxktop 09/19/23 15:41 KW Document 10/03/23 15:46 JF Laptop 10/03/23 15:50 JF 09/19/23 10/03/23 15:37 15:46 Wound Center Nurse 2 #1 R post LE- post surg -Time 15:37 -Correct Patient Yes No -Correct Side, Site, Position Yes No -Correct Procedure Yes No -Procedure Performed Yes No -Type of Procedure Debridement -Clinical Debridement Subcutaneous -Tissue Removed Subcutaneous -Post Debridement (cm) - Length 0.4 -Post Debridement (cm) - Width 0.9 -Post Debridement (cm) - Depth 0.2 -Total Square (Post) (cm) 0.36 -Area of Debridement (cm) - Length 0.4 -Area of Debridement (cm) - Width 0.9 -Total Square (Area) (cm) 0.36 -Tunneling No -Undermining/Tunneling No -Circular Undermining No -Wound/Ulcer Outcome Not Healed Not Healed -Ulcer Cleansing Rinsed/ Irrigated with Saline -Foul Odor after Cleansing No -Bioengineered Tissue No -Bleeding Controlled with Pressure -Treatment Response Procedure Tolerated Well -Offloading No -Debridement - Subq, 1st 20sq cm Yes No Pain Scale: 0-10 Numeric Is Patient Pain Free? Yes Yes WC - Nurse 3 - General Ulcer D/C NN Start: 09/19/23 15:25 Freq: Status: Active Protocol: Activity Type Activity Date Activity User E-sign Co-sign Detail Recorded Client Recorded Date Recorded By Document 09/19/23 15:49 KW [employer]boxktop 09/19/23 15:49 KW Document 10/03/23 15:55 KW Desktop 01/17/24 15:56 KW 09/19/23 10/03/23 15:49 15:55 Wound Care Center Nurse 3 #1 R post LE- post surg -Primary Dressing Applied C Hydrogel ($) NonAdherent Contact Layer, Other -Other Dressing betadine -Primary Dressing Covered/Secured with Dry Gauze, Dry Gauze & Secured with Roll Gauze, Tape Secured with Tape Right -Multi-Layered Wrap Application Multi-Layer Comp - Right ($ ) -Tubular Bandage Double Layer -Size of Tubigrip Used Size F -Size F ($) 2 Left -Tubular Bandage Double Layer -Size of Tubigrip Used Size F -Size F ($) 2 Pain Scale: 0-10 Numeric Is Patient Pain Free? Yes Yes WC - Visit Discharge Discharge Condition Stable Ambulatory Status Ambulatory Wheelchair Transportation Private Auto Private Auto Medication Reconcilliation completed & No No provided to patient/care provider Clinical Summary of Care Provided Yes Assessment/Plan Assessment/Plan (1) Non-pressure chronic ulcer of unspecified part of right lower leg with fat layer exposed: CODE(S): L97.912 - Non-pressure chronic ulcer of unspecified part of rightlower leg with fat layer exposed PLAN: Patient was examined and evaluated. All findings were discussed with the patient. All questions were answered to the patient's satisfaction. Long discussion with the patient regarding her postoperative instructions. Reeducated to the patient and stressed that she needs to be nonweightbearing to the right lower extremity at all times during her postoperative course. At thistime the patient was noncompliant prior to arrival to the wound care center today as she has been weightbearing. After our discussion she is understanding of this and will continue to be nonweightbearing with assistance of crutches until her follow-up with nursing for dressing change on Sunday and then followedby Sunday follow-up with Dr. Lord. It was stressed to the patient that if she continues to be noncompliant with her postoperative instructions she was at the risk of opening up her incision and causing a greater wound and possibly causing a worse or deep infection that will require additional OR debridement and could possibly lead to loss of leg if she is not careful. Educated the patient to continue her protein intake as well as continue to have strict blood sugar control and not smoke during the postoperative course. Again the patient showed understanding of this. The right posterior calf incision was dressed with Betadine paint, Adaptic, Betadine soaked 4 x 4, dry sterile dressing and a 3 layer compression wrap was applied without incident. Patient will follow-up Sunday for nursing change and then Sunday with Dr. Lord. Follow-up at the wound care center with Dr. Lord in 1 week. (2) Lymphedema, not elsewhere classified: CODE(S): I89.0 - Lymphedema, not elsewhere classified 10/03/23 1611 <Electronically signed by Sebas Lord DPM> Cosigner Signature (if applicable): CC: ~ Signed [facility] Work Phone: 1(448) 775-590301-05-2024 History of Present illness Narrative* Alem Marinelli RT(R) - 09/21/2023 11:30 AM EST Radiology Service Progress Note PATIENT NAME: Nanci Rodriguez DATE OF SERVICE: September 21, 2023 TIME: 11:27 AM PATIENT IDENTITY VERIFICATION COMPLETED USING TWO (2) IDENTIFIERS: Name and Date of confirmedby patient verbally. FALL SCREENING: Has the patient had 2 falls in the last year or 1 fall with injury or currently using an Ambulatory Assistive Device (Walker, Cane, Wheelchair, Crutches, etc.)? No PATIENT GENDER DATA: Female. status: : No status: NO. PATIENT RELEVANT IMPLANT DATA REVIEWED: Yes RADIOLOGY DEPARTMENT: General X-ray: Exam(s) Completed: Chest X-Ray PERIPHERAL IV DATA: Not applicable SIGNED BY: RT Zca(R) September 21, 2023 11:27 AM documented in [facility]Day[facility] Progress note Author Sebas Lord [facility] September 19, 2023 3:44pm Note Date/Time September 19, 2023 3: 32pm [facility] [address] [place] [address] Progress Note - Wound Care 09/19/23 1530 MR#: [id number] Acct: [id number] Name: NANCI RODRIGUEZ Rep #:[id number] : 1980 43 From: Sebas BEST PCP: Dr. Rodri Chauhan MD Status:RE G RCR Location: History of Present Illness Date of Service: 09/19/23 Chief Complaint: Ulceration right posterior leg History of Wound: Ulceration right posterior leg Subjective Subjective Ms. Rodriguez is a 42-year-old diabetic female seen at the wound care center today for follow-up and evaluation for full-thickness ulceration to the posterior aspect of the right calf. Patient has been doing home dressing changes with collagen/hydrogel with improvements to the wound. Antibiotics complete. She isdoing home dressing changes as directed. She denies any trauma. Denies constitutional symptoms. No other pedal complaints at this time. Objective Data Objective Data Vital Signs: Vital Signs Temp Pulse Resp BP 97.3 F L 101 H 22 H 150/78 H 09/17/23 00:13 09/17/23 00:13 09/17/23 00:13 09/17/23 00:13 Weight: 160.223 kg Body Mass Index (BMI) 62.5 Physical Exam Narrative Neurovascular status unchanged. Evidence of full-thickness ulceration of the posterior calf measuring 0.4 x 0.7 x 0.2 cm. Wound base is fibrogranular in nature. Sanguinous drainage noted. No sign of infection. No erythema no SOI. Pain on palpation to full-thickness ulceration. No pain with calf compression. Excisional debridement down to and including subcutaneous tissue to the right posterior calf full-thickness ulceration with a number 3 mm dermal curette without incident. Predebridement measurement is 0.3 x 0.7 x 0.2 cm. Postdebridement measurement is 0.4 x 0.9 x 0.2 cm. Debridement Note Debridement Note Debridement Free Text: Excisional debridement down to and including subcutaneoustissue to the right posterior calf full-thickness ulceration with a number 3 mm dermal curette without incident. Predebridement measurement is 0.3 x 0.7 x 0.2 cm. Postdebridement measurement is 0.4 x 0.9 x 0.2 cm. Assessment/Plan Assessment/Plan (1) Ulcer of right lower extremity with fat layer exposed: CODE(S): L97.912 - Non-pressure chronic ulcer of unspecified part of rightlower leg with fat layer exposed PLAN: Patient was examined and evaluated. All findings were discussed with the patient. All questions were answered to the patient's satisfaction. Excisional debridement down to and including subcutaneous tissue to the right posterior calf full-thickness ulceration with a number 3 mm dermal curette without incident. Predebridement measurement is 0.3 x 0.7 x 0.2 cm. Postdebridement measurement is 0.4 x 0.9 x 0.2 cm. Ulceration dressed with hydrogel gauze and tape. Patient will follow-up in private office for surgical planning. Follow-up at the wound care center with Dr. Lord in 1 week. (2) Calciphylaxis: CODE(S): E83.59 - Other disorders of calcium metabolism (3) Diabetes mellitus with diabetic polyneuropathy: CODE(S): E11.42 - Type 2 diabetes mellitus with diabetic polyneuropathy QUALIFIERS: Diabetes mellitus type: type 2 Diabetes mellitus shelter insulin use: with termination clerk use Qualified Code(s): E11.42 - Type 2 diabetes mellitus with diabetic polyneuropathy; Z79.4 - residential (current) use of insulin 09/19/23 1544 <Electronically signed by Sebas Lord DPM> Cosigner Signature (if applicable): CC: ~ Signed [facility] Work Phone: 1(565) 802-516612-20-2023 Progress note Author Sebas Lord [facility] September 05, 2023 3:49pm Note Date/Time September 05, 2023 3:49pm [facility] [address] [place] [address] Progress Note - Wound Care 09/05/23 1547 MR#: [id number] Acct: [id number] Name: NANCI RODRIGUEZ Rep #:[id number] : 1980 43 From: Sebas Dhaliwal PM PCP: Dr. Rodri Chauhan MD Status:RE G R Location: History of Present Illness Date of Service: 09/05/23 Chief Complaint: Ulceration right posterior leg History of Wound: Ulceration right posterior leg Subjective Subjective Ms. Rodriguez is a 42-year-old diabetic female seen at the wound care center today for follow-up and evaluation for full-thickness ulceration to the posterior aspect of the right calf. Patient has been doing home dressing changes with collagen/hydrogel with improvements to the wound. She is taking her antibiotic Bactrim DS as instructed. She is doing home dressing changes as directed. She denies any trauma. Denies constitutional symptoms. No other pedal complaints at this time. Objective Data Objective Data Vital Signs: Vital Signs Temp Pulse Resp BP 97.3 F L 101 H 22 H 150/78 H 09/05/23 15:13 09/05/23 15:13 09/05/23 15:13 09/05/23 15:13 Weight: 160.223 kg Body Mass Index (BMI) 62.5 Physical Exam Narrative Neurovascular status unchanged. Evidence of full-thickness ulceration of the posterior calf measuring 0.4 x 0.7 x 0.2 cm. Wound base is fibrogranular in nature. Sanguinous drainage noted. No sign of infection. No erythema no SOI. Pain on palpation to full-thickness ulceration. No pain with calf compression. Excisional debridement down to and including subcutaneous tissue to the right posterior calf full-thickness ulceration with a number 3 mm dermal curette without incident. Predebridement measurement is 0.3 x 0.5 x 0.2 cm. Postdebridement measurement is 0.4 x 0.7 x 0.2 cm. Debridement Note Debridement Note Debridement Free Text: Excisional debridement down to and including subcutaneoustissue to the right posterior calf full-thickness ulceration with a number 3 mm dermal curette without incident. Predebridement measurement is 0.3 x 0.5 x 0.2 cm. Postdebridement measurement is 0.4 x 0.7 x 0.2 cm. Post-Debridement Measurements and Additional Note: Post-Debridement Measurements/Treatment - Nurse 1 - General Ulcer Assessment Start: 08/22/23 15:23 Freq: Status: Active Protocol: [email or web address].SAY Activity Type Activity Date Activity User E-sign Co-sign Detail Recorded Client Recorded Date Recorded By Document 08/22/23 15:23 DL Desktop 08/22/23 15:27 DL Edit Result 08/22/23 15:23 DL (1) Desktop 08/22/23 15:29 DL Document 09/05/23 15:13 DL Desktop 09/05/23 15:20 DL (1) Temperature (97.8 F-99.1 F) => 97.2 F L Temperature Source => Temporal Pulse Rate (60-100) => 107 H Pulse Location => Monitor Blood Pressure (90/60-120/80) => 134/72 H Blood Pressure Mean (mm Hg) => 92 Source => Monitor 08/22/23 09/05/23 15:23 15:13 WC - Today's Visit Information Type of service Follow-up Visit Follow-up Visit (Physician/SENIOR TRAINER (Physician/SENIOR TRAINER ) ) Arrival Mode Ambulatory Ambulatory Transfer Assistance None None Patient Identification Verified (Name & Yes Yes ) Patient Requires Transmission-Based No No Precautions Finger Stick Blood Sugar(mg/dl) (if 163 150 indicated): Blood Sugar Stated by Stated by Patient Patient Height and Weight Body Mass Index (BMI) 62.5 62.5 BMI Classification Obese Obese Vital Signs Temperature (97.8 F-99.1 F) 97.2 F L 97.3 F L Temperature Source Temporal Temporal Pulse Rate (60-100) 107 H 101 H Pulse Location Monitor Monitor Respiratory Rate (12-18) 22 H 22 H Respiratory rate source Observation Blood Pressure (90/60-120/80) 134/72 H 150/78 H Blood Pressure Mean (mm Hg) 92 102 Source Monitor Monitor History Since Last Visit- (Skip if this is Patient's initial visit) Have you changed medications since your No No last visit? Any new allergies or adverse reactions No No Had a fall/change in ADL's that may No No increase risk of falls Signs or symptoms of abuse and/or No No neglect since last visit Have you been in the hospital since your No No last visit? Has dressing in place as prescribed Yes Yes Has compression in place as prescribed Yes Yes Has offloadiing in place as prescribed N/A Experienced any changes in pain level or No No management Left Footwear Slipper Right Footwear Slipper Pain Scale: 0-10 Numeric Is Patient Pain Free? Yes Yes - Nurse 1 - General Ulcer Measurement Start: 08/22/23 15:23 Freq: Status: Active Protocol: Activity Type Activity Date Activity User E-sign Co-sign Detail Recorded Client Recorded Date Recorded By Document 08/22/23 15:23 DL Desktop 08/22/23 15:27 DL Document 09/05/23 15:13 DL Desktop 09/05/23 15:20 DL 08/22/23 09/05/23 15:23 15:13 Wound Center Nurse 1 #1 R post LE -Current Size (cm) - Length 0.4 0.4 -Current Size (cm) - Width 0.4 0.5 -Current Size (cm) - Depth 0.4 0.2 -Total Square Cm 0.16 0.20 -Exudate Amt Small None Present -Exudate Type Serosanguineous -Wound Margin Distinct, Distinct, Outline Outline Attached Attached -Granulation Amt Large (67-100%) Small (1-33%) -Granulation Quality [place] -Necrosis Amt None Present (0 None Present (0 %) %) -Structure Exposed N/A -Texture (Rachele-wound Skin Appearance) Scarring Rash -Moisture (Rachele-wound Skin Appearance) No Abnormality No Abnormality -Color (Rachele-wound Skin Appearance) No Abnormality Erythema -Temperature (Rachele-wound Skin No Abnormality No Abnormality Appearance) (Pt Warm) (Pt Warm) -Tenderness on Palpation (Rachele-wound No No Skin Appearance) -Ulcer Cleansing Soap and Water Rinsed/ Irrigated with Saline -Foul Odor after Cleansing No No -Anesthetic Used 5% Lidocaine 5% Lidocaine Gel Gel Right Calf (cm) 65 65 Right Ankle (cm) 32.3 31.5 WC - Nurse 2 - General Ulcer CM Notes Start: 08/22/23 15:23 Freq: Status: Active Protocol: Activity Type Activity Date Activity User E-sign Co-sign Detail Recorded Client Recorded Date Recorded By Document 08/22/23 16:05 Laptop 08/22/23 16:09 Document 09/05/23 15:35 Laptop 09/05/23 15:36 08/22/23 09/05/23 16:05 15:35 Wound Center Nurse 2 #1 R post LE -Time 16:06 15:35 -Correct Patient Yes Yes -Correct Side, Site, Position Yes Yes -Correct Procedure Yes Yes -Procedure Performed Yes Yes -Type of Procedure Debridement Debridement -Clinical Debridement Subcutaneous Subcutaneous -Tissue Removed Subcutaneous Subcutaneous -Post Debridement (cm) - Length 0.4 0.4 -Post Debridement (cm) - Width 0.4 0.7 -Post Debridement (cm) - Depth 0.3 0.2 -Total Square (Post) (cm) 0.16 0.28 -Area of Debridement (cm) - Length 0.4 0.4 -Area of Debridement (cm) - Width 0.4 0.7 -Total Square (Area) (cm) 0.16 0.28 -Tunneling No No -Undermining/Tunneling No No -Circular Undermining No No -Wound/Ulcer Outcome Not Healed Not Healed -Ulcer Cleansing Rinsed/ Rinsed/ Irrigated with Irrigated with Saline Saline -Foul Odor after Cleansing No No -Bioengineered Tissue No No -Bleeding Controlled with Pressure Pressure -Treatment Response Procedure Procedure Tolerated Well Tolerated Well -Offloading No No -Debridement - Subq, 1st 20sq cm Yes Yes Pain Scale: 0-10 Numeric Is Patient Pain Free? Yes Yes - Nurse 3 - General Ulcer D/C NN Start: 08/22/23 15:23 Freq: Status: Active Protocol: Activity Type Activity Date Activity User E-sign Co-sign Detail Recorded Client Recorded Date Recorded By Document 08/22/23 16:14 DL Desktop 08/22/23 16:16 DL Edit Result 08/22/23 16:14 DL (1) Desktop 08/22/23 16:17 DL Document 09/05/23 15:46 DL Desktop 09/05/23 15:47 DL (1) Notes: => Pt to start Santyl when available. 08/22/23 09/05/23 16:14 15:46 Wound Care Center Nurse 3 #1 R post LE -Ulcer Cleansing Rinsed/ Rinsed/ Irrigated with Irrigated with Saline Saline -Foul Odor after Cleansing No No -Primary Dressing Applied C Hydrogel ($) C Hydrogel ($) -Primary Dressing Covered/Secured with Dry Gauze, Dry Gauze, Secured with Secured with Tape Tape Right -Tubular Bandage Double Layer Double Layer -Size of Tubigrip Used Size F Size E -Size E ($) 2 -Size F ($) 2 Treatment Response Procedure Tolerated Well Pain Scale: 0-10 Numeric Is Patient Pain Free? Yes Yes - Visit Discharge Discharge Condition Stable Stable Ambulatory Status Ambulatory Ambulatory Transportation Private Auto Private Auto Medication Reconcilliation completed & No provided to patient/care provider Notes: Pt to start Santyl when available. Assessment/Plan Assessment/Plan (1) Ulcer of right lower extremity with fat layer exposed: CODE(S): L97.912 - Non-pressure chronic ulcer of unspecified part of rightlower leg with fat layer exposed (2) Type 2 diabetes mellitus with foot ulcer: CODE(S): E11.621 - Type 2 diabetes mellitus with foot ulcer; L97.509 - Non- pressure chronic ulcer of other part of unspecified foot with unspecified severity QUALIFIERS: Diabetes mellitus termination clerk insulin use: with termination clerk use Qualified Code(s): E11.621 - Type 2 diabetes mellitus with foot ulcer;L97.509 - Non- pressure chronic ulcer of other part of unspecified foot with unspecified severity; Z79.4 - termination clerk (current) use of insulin PLAN: Patient was examined and evaluated. All findings were discussed with the patient. All questions were answered to the patient's satisfaction. Excisional debridement down to and including subcutaneous tissue to the right posterior calf full-thickness ulceration with a number 3 mm dermal curette without incident. Predebridement measurement is 0.3 x 0.5 x 0.2 cm. Postdebridement measurement is 0.4 x 0.7 x 0.2 cm. The ulceration was dressed with Hannah, hydrogel and a dry sterile dressing was applied followed by double layer Tubigrip. Patient was instructed to change her dressings every other day and apply double layer Tubigrip to help decrease her swelling. She is continue to take her antibiotic as written. Follow-up in 2 weeks. (3) Lymphedema: CODE(S): I89.0 - Lymphedema, not elsewhere classified 09/05/23 1549 <Electronically signed by Sebas Lord DPM> Cosigner Signature (if applicable): CC: ~ Signed [facility] Work Phone: 1(626) 673-349312-06-2023 Progress note Author Sebas Lord [facility] August 22, 2023 4:52pm Note Date/Time August 22, 2023 4 :52pm [facility] [address] [place] [address] Progress Note - Wound Care 08/22/23 1650 MR#: [id number] Acct: [id number] Name: NANCI RODRIGUEZ Rep #:[id number] : 1980 42 From: Sebas Dhaliwal PM PCP: Dr. Rodri Chauhan MD Status:RE G RCR Location: History of Present Illness Date of Service: 08/22/23 Chief Complaint: Ulceration right posterior leg History of Wound: Ulceration right posterior leg Subjective Subjective Ms. Rodriguez is a 42-year-old diabetic female presenting to the wound care center today for follow-up and evaluation of reopening of full-thickness ulceration to the posterior aspect of the right calf. Patient admits that the ulceration had healed. She does admit to swelling to her right leg that most likely caused herto reopen. She denies smoking. She states her blood sugars under control. Shedenies trauma. Denies constitutional symptoms. No other pedal complaints at this time. Objective Data Objective Data Vital Signs: Vital Signs Temp Pulse Resp BP 97.2 F L 107 H 22 H 134/72 H 08/22/23 15:23 08/22/23 15:23 08/22/23 15:23 08/22/23 15:23 Weight: 160.223 kg Body Mass Index (BMI) 62.5 Physical Exam Narrative Neurovascular status unchanged. Evidence of full-thickness ulceration of the posterior calf measuring 0.4 x 0.4 x 0.3 cm. Wound base is fibrogranular in nature. Sanguinous drainage noted. No sign of infection. No erythema no SOI. Pain on palpation to full-thickness ulceration. No pain with calf compression. Excisional debridement down to and including subcutaneous tissue to the right posterior calf full-thickness ulceration with a number 3 mm dermal curette without incident. Predebridement measurement is 0.3 x 0.3 x 0.2 cm. Postdebridement measurement is 0.4 x 0.4 x 0.3 cm. Debridement Note Debridement Note Debridement Free Text: Excisional debridement down to and including subcutaneoustissue to the right posterior calf full-thickness ulceration with a number 3 mm dermal curette without incident. Predebridement measurement is 0.3 x 0.3 x 0.2 cm. Postdebridement measurement is 0.4 x 0.4 x 0.3 cm Post-Debridement Measurements and Additional Note: Post-Debridement Measurements/Treatment - Nurse 1 - General Ulcer Assessment Start: 08/22/23 15:23 Freq: Status: Active Protocol: PANCHITO.LOWEXT Activity Type Activity Date Activity User E-sign Co-sign Detail Recorded Client Recorded Date Recorded By Document 08/22/23 15:23 DL Desktop 08/22/23 15:27 DL Edit Result 08/22/23 15:23 DL (1) Desktop 08/22/23 15:29 DL (1) Temperature (97.8 F-99.1 F) => 97.2 F L Temperature Source => Temporal Pulse Rate (60-100) => 107 H Pulse Location => Monitor Blood Pressure (90/60-120/80) => 134/72 H Blood Pressure Mean (mm Hg) => 92 Source => Monitor 08/22/23 15:23 WC - Today's Visit Information Type of service Follow-up Visit (Physician/SENIOR TRAINER ) Arrival Mode Ambulatory Transfer Assistance None Patient Identification Verified (Name & Yes ) Patient Requires Transmission-Based No Precautions Finger Stick Blood Sugar(mg/dl) (if 163 indicated): Blood Sugar Stated by Patient Height and Weight Body Mass Index (BMI) 62.5 BMI Classification Obese Vital Signs Temperature (97.8 F-99.1 F) 97.2 F L Temperature Source Temporal Pulse Rate (60-100) 107 H Pulse Location Monitor Respiratory Rate (12-18) 22 H Respiratory rate source Observation Blood Pressure (90/60-120/80) 134/72 H Blood Pressure Mean (mm Hg) 92 Source Monitor History Since Last Visit- (Skip if this is Patient's initial visit) Have you changed medications since your No last visit? Any new allergies or adverse reactions No Had a fall/change in ADL's that may No increase risk of falls Signs or symptoms of abuse and/or No neglect since last visit Have you been in the hospital since your No last visit? Has dressing in place as prescribed Yes Has compression in place as prescribed Yes Experienced any changes in pain level or No management Left Footwear Slipper Right Footwear Slipper Pain Scale: 0-10 Numeric Is Patient Pain Free? Yes - Nurse 1 - General Ulcer Measurement Start: 08/22/23 15:23 Freq: Status: Active Protocol: Activity Type Activity Date Activity User E-sign Co-sign Detail Recorded Client Recorded Date Recorded By Document 08/22/23 15:23 DL Desktop 08/22/23 15:27 DL 08/22/23 15:23 Wound Center Nurse 1 #1 R post LE -Current Size (cm) - Length 0.4 -Current Size (cm) - Width 0.4 -Current Size (cm) - Depth 0.4 -Total Square Cm 0.16 -Exudate Amt Small -Exudate Type Serosanguineous -Wound Margin Distinct, Outline Attached -Granulation Amt Large (67-100%) -Granulation Quality Red -Necrosis Amt None Present (0 %) -Texture (Rachele-wound Skin Appearance) Scarring -Moisture (Rachele-wound Skin Appearance) No Abnormality -Color (Rachele-wound Skin Appearance) No Abnormality -Temperature (Rachele-wound Skin No Abnormality Appearance) (Pt Warm) -Tenderness on Palpation (Rachele-wound No Skin Appearance) -Ulcer Cleansing Soap and Water -Foul Odor after Cleansing No -Anesthetic Used 5% Lidocaine Gel Right Calf (cm) 65 Right Ankle (cm) 32.3 WC - Nurse 2 - General Ulcer CM Notes Start: 08/22/23 15:23 Freq: Status: Active Protocol: Activity Type Activity Date Activity User E-sign Co-sign Detail Recorded Client Recorded Date Recorded By Document 08/22/23 16:05 Laptop 08/22/23 16:09 08/22/23 16:05 Wound Center Nurse 2 #1 R post LE -Time 16:06 -Correct Patient Yes -Correct Side, Site, Position Yes -Correct Procedure Yes -Procedure Performed Yes -Type of Procedure Debridement -Clinical Debridement Subcutaneous -Tissue Removed Subcutaneous -Post Debridement (cm) - Length 0.4 -Post Debridement (cm) - Width 0.4 -Post Debridement (cm) - Depth 0.3 -Total Square (Post) (cm) 0.16 -Area of Debridement (cm) - Length 0.4 -Area of Debridement (cm) - Width 0.4 -Total Square (Area) (cm) 0.16 -Tunneling No -Undermining/Tunneling No -Circular Undermining No -Wound/Ulcer Outcome Not Healed -Ulcer Cleansing Rinsed/ Irrigated with Saline -Foul Odor after Cleansing No -Bioengineered Tissue No -Bleeding Controlled with Pressure -Treatment Response Procedure Tolerated Well -Offloading No -Debridement - Subq, 1st 20sq cm Yes Pain Scale: 0-10 Numeric Is Patient Pain Free? Yes PANCHITO - Nurse 3 - General Ulcer D/C NN Start: 08/22/23 15:23 Freq: Status: Active Protocol: Activity Type Activity Date Activity User E-sign Co-sign Detail Recorded Client Recorded Date Recorded By Document 08/22/23 16:14 DL Desktop 08/22/23 16:16 DL Edit Result 08/22/23 16:14 DL (1) Desktop 08/22/23 16:17 DL (1) Notes: => Pt to start Santyl when available. 08/22/23 16:14 Wound Care Center Nurse 3 #1 R post LE -Ulcer Cleansing Rinsed/ Irrigated with Saline -Foul Odor after Cleansing No -Primary Dressing Applied C Hydrogel ($) -Primary Dressing Covered/Secured with Dry Gauze, Secured with Tape Right -Tubular Bandage Double Layer -Size of Tubigrip Used Size F -Size F ($) 2 Treatment Response Procedure Tolerated Well Pain Scale: 0-10 Numeric Is Patient Pain Free? Yes WC - Visit Discharge Discharge Condition Stable Ambulatory Status Ambulatory Transportation Private Auto Medication Reconcilliation completed & No provided to patient/care provider Notes: Pt to start Santyl when available. Assessment/Plan Assessment/Plan (1) Ulcer of right lower extremity with fat layer exposed: CODE(S): L97.912 - Non-pressure chronic ulcer of unspecified part of rightlower leg with fat layer exposed PLAN: Patient was examined and evaluated. All findings were discussed with the patient. All questions were answered to the patient's satisfaction. Excisional debridement down to and including subcutaneous tissue to the right posterior calf full-thickness ulceration with a number 3 mm dermal curette without incident. Predebridement measurement is 0.3 x 0.3 x 0.2 cm. Postdebridement measurement is 0.4 x 0.4 x 0.3 cm. Patient's ulceration was dressed with collagen hydrogel, dry sterile dressing and a double layer of Tubigrip. Will begin authorization for Santyl for the patient to apply daily aswritten. We will still exhaust conservative treatments for taking the patient to the operating room to attempt delayed primary closure to the right calf. The patient will be placed on Bactrim DS secondary to concern for cellulitis forerythema to the periwound. The patient will follow-up in 2 weeks. (2) Diabetes mellitus with diabetic polyneuropathy: CODE(S): E11.42 - Type 2 diabetes mellitus with diabetic polyneuropathy QUALIFIERS: Diabetes mellitus type: type 2 Diabetes mellitus shelter insulin use: with mcfp use Qualified Code(s): E11.42 - Type 2 diabetes mellitus with diabetic polyneuropathy; Z79.4 - termination clerk (current) use of insulin (3) Morbidly obese: CODE(S): E66.01 - Morbid (severe) obesity due to excess calories (4) Lymphedema: CODE(S): I89.0 - Lymphedema, not elsewhere classified 08/22/23 1652 <Electronically signed by Sebas Lord DPM> Cosigner Signature (if applicable): CC: ~ Signed [facility] Work Phone: 1(106) 486-506012-05-2023 Miscellaneous Notes* Telephone Encounter - Sylwia Marcial LPN - 08/21/2023 4:42 PM EST Last office visit: 07/31/23 Next appointment scheduled: 12/07/23 * Telephone Encounter - Davy Nunez - 08/21/2023 2:25 PM EST Patient has been identified by name and date of : Yes codeine 30 mg tablet 21 tablet 0 RX INSTRUCTIONS: Patient aware RX will be sent to pharmacy. No need to nofity patient. Controlled medication - must be call in. Davy Rodrigues [facility] Miscellaneous Notes* Telephone Encounter - Kailee Salinas LPN - 08/21/2023 9:03 AM EST Patient has been identified by name and date of : Yes, Provider Dr. Chauhan Date 08/21/23 Time9:04 am Pharmacy phones for refill(s): Requested Prescriptions Pending Prescriptions Disp Refills topiramate (TOPAMAX) 100 mg tablet 60 tablet 11 Sig: Take 1 tablet by mouth two times a day. lansoprazole (PREVACID) 30 mg capsule 30 capsule 11 Sig: Take 1 capsule by mouth daily before breakfast. Refused Prescriptions Disp Refills cyclobenzaprine (FLEXERIL) 10 mg tablet [Pharmacy Med Name: cyclobenzaprine 10 mg tablet] 30 tablet2 Sig: TAKE ONE TABLET BY MOUTH THREE TIMES DAILY NEEDED FOR muscle spasm Refused By: DAVY LAGUNA Reason for Refusal: Patient should contact Prescriber first Date of last office visit in primary care: 07/13/2023 Date of next office visit in primary care: 12/07/2023 Last 2 Encounter Wt Readings: Date: Wt: 07/23/2023 163.3 kg (360 lb) 07/13/2023 159.2 kg (351 lb) Previous labs/tests for medication: Not applicable Please advise. Thank you. Kailee Salinas LPN. documented [facility]Day[facility]11[facility]23 Progress note Author Sebas Lord [facility] August 15, 2023 4:00pm Note Date/Time August 15, 2023 3:04pm [facility] [address] [place] [id number] Progress Note - Wound Care 08/15/23 1503 MR#: [id number] Acct: [id number] Name: NANCI RODRIGUEZ Rep #:[id number] : 1980 42 From: Sebas BEST PCP: Dr. Rodri Chauhan MD Status:RE G RCR Location: History of Present Illness Date of Service: 08/15/23 Chief Complaint: Ulceration right posterior leg History of Wound: Ulceration right posterior leg Subjective Subjective Ms. Rodriguez is a 42-year-old diabetic female presenting to the wound care center today for follow-up and evaluation of reopening of full-thickness ulceration to the posterior aspect of the right calf. Patient admits that the ulceration had healed. She does admit to swelling to her right leg that most likely caused herto reopen. She denies smoking. She states her blood sugars under control. Shedenies trauma. Denies constitutional symptoms. No other pedal complaints at this time. Objective Data Objective Data Vital Signs: Vital Signs Temp Pulse Resp BP O2 Del Method 96.4 F L 118 H 22 H 121/94 H Room Air 08/08/23 14:57 08/08/23 14:57 08/08/23 14:57 08/08/23 14:57 08/08/23 14:57 Oxygen Delivery Method Room Air Weight: 160.223 kg Body Mass Index (BMI) 62.5 Physical Exam Narrative Neurovascular status unchanged. Evidence of full-thickness ulceration of the posterior calf measuring 0.4 x 0.4 x 0.3 cm. Wound base is fibrogranular in nature. Sanguinous drainage noted. No sign of infection. No erythema no SOI. Pain on palpation to full-thickness ulceration. No pain with calf compression. Excisional debridement down to and including subcutaneous tissue to the right posterior calf full-thickness ulceration with a number 3 mm dermal curette without incident. Predebridement measurement is 0.3 x 0.3 x 0.2 cm. Postdebridement measurement is 0.4 x 0.4 x 0.3 cm. Debridement Note Debridement Note Debridement Free Text: Excisional debridement down to and including subcutaneoustissue to the right posterior calf full-thickness ulceration with a number 3 mm dermal curette without incident. Predebridement measurement is 0.3 x 0.3 x 0.2 cm. Postdebridement measurement is 0.4 x 0.4 x 0.3 cm. Post-Debridement Measurements and Additional Note: Post-Debridement Measurements/Treatment - Nurse 1 - General Ulcer Assessment Start: 07/18/23 10:01 Freq: Status: Active Protocol: WATSON Activity Type Activity Date Activity User E-sign Co-sign Detail Recorded Client Recorded Date Recorded By Document 07/18/23 10:01 DL Desktop 07/18/23 10:08 DL Document 07/25/23 14:55 Desktop 07/25/23 15:07 Document 08/08/23 14:57 MW Desktop 08/08/23 15:06 07/18/23 07/25/23 08/08/23 10:01 14:55 14:57 - Today's Visit Information Type of service Follow-up Visit Follow-up Visit Follow-up Visit (Physician/SENIOR TRAINER (Physician/SENIOR TRAINER (Physician/SENIOR TRAINER ) ) ) Arrival Mode Ambulatory Ambulatory Ambulatory Transfer Assistance None None None Accompanied by self Patient Identification Verified (Name & Yes Yes Yes ) Patient Requires Transmission-Based Yes No No Precautions Safety Precautions NA NA NA Finger Stick Blood Sugar(mg/dl) (if 153 135 153 indicated): Blood Sugar Stated by Stated by Patient Patient Height and Weight Body Mass Index (BMI) 62.5 62.5 62.5 BMI Classification Obese Obese Obese Vital Signs Temperature (97.8 F-99.1 F) 97 F L 96.5 F L 96.4 F L Temperature Source Temporal Temporal Temporal Pulse Rate (60-100) 118 H 98 118 H Pulse Location Monitor Monitor Monitor Respiratory Rate (12-18) 22 H 22 H Respiratory rate source Observation Observation Oxygen Delivery Method Room Air Room Air Blood Pressure (90/60-120/80) 150/96 H 144/72 H 121/94 H Blood Pressure Mean (mm Hg) 114 96 103 Source Monitor Monitor Monitor Position Semi-Fowlers Sitting Blood Pressure Location Right Arm Left Forearm History Since Last Visit- (Skip if this is Patient's initial visit) Have you changed medications since your No No No last visit? Any new allergies or adverse reactions No No No Had a fall/change in ADL's that may No No No increase risk of falls Signs or symptoms of abuse and/or No No No neglect since last visit Have you been in the hospital since your No No No last visit? Has dressing in place as prescribed Yes Yes Yes Has compression in place as prescribed Yes Yes Yes Has offloadiing in place as prescribed Yes No N/A Experienced any changes in pain level or No No No management Left Footwear Regular Shoe Right Footwear Regular Shoe Pain Scale: 0-10 Numeric Is Patient Pain Free? Yes Yes Yes WC - Nurse 1 - General Ulcer Measurement Start: 07/18/23 10:01 Freq: Status: Active Protocol: Activity Type Activity Date Activity User E-sign Co-sign Detail Recorded Client Recorded Date Recorded By Document 07/18/23 10:01 DL Desktop 07/18/23 10:08 DL Document 07/25/23 14:55 GM Desktop 07/25/23 15:07 GM Document 08/08/23 14:57 MW Desktop 08/08/23 15:06 MW 07/18/23 07/25/23 08/08/23 10:01 14:55 14:57 Wound Center Nurse 1 #1 R post LE -Combined with other wound No No -Current Size (cm) - Length 0.1 0.3 -Current Size (cm) - Width 0.1 0.3 -Current Size (cm) - Depth 0.1 0.1 -Total Square Cm 0.01 0.09 -Date of Last Picture (Recall this 08/08/23 field) -Photo Taken No Yes -Epithelialization None Present -Tunneling No -Undermining/Tunneling No -Circular Undermining No -Exudate Amt None Present Small None Present -Exudate Type Serous -Wound Margin Indistinct, Non Flat & Intact Flat & Intact -Visible -Granulation Amt Large (67-100%) Small (1-33%) None Present (0 %) -Granulation Quality [place] N/A -Slough/Fibrin Yes -Necrosis Amt None Present (0 Small (1-33%) Medium (34-66%) %) -Necrotic Tissue Type Adherent Slough Adherent Slough -Structure Exposed N/A N/A -Texture (Rachele-wound Skin Appearance) Scarring Assessed Assessed, Localized Edema ,Scarring,Rash -Moisture (Rachele-wound Skin Appearance) No Abnormality Assessed No Abnormality, Assessed -Color (Rachele-wound Skin Appearance) No Abnormality Assessed No Abnormality, Assessed -Temperature (Rachele-wound Skin No Abnormality No Abnormality Appearance) (Pt Warm) (Pt Warm) -Tenderness on Palpation (Rachele-wound No No No Skin Appearance) -Ulcer Cleansing Soap and Water Soap and Water Rinsed/ Irrigated with Saline -Foul Odor after Cleansing No No No -Anesthetic Used 5% Lidocaine 5% Lidocaine Gel Gel -Wound Comment(s) Biopsy site- suture intact Lower Limb Edema Present Yes Yes Right Calf (cm) 58.5 58.0 64.5 Right Ankle (cm) 32 31.0 33.0 Left Calf (cm) 56.0 Left Ankle (cm) 30.5 WC - Nurse 2 - General Ulcer CM Notes Start: 07/18/23 10:01 Freq: Status: Active Protocol: Activity Type Activity Date Activity User E-sign Co-sign Detail Recorded Client Recorded Date Recorded By Document 07/18/23 10:24 Laptop 07/18/23 10:25 Document 07/25/23 15:32 Laptop 07/25/23 15:34 Document 08/08/23 16:44 PL [id number] 08/08/23 16:45 PL 07/18/23 07/25/23 08/08/23 10:24 15:32 16:44 Wound Center Nurse 2 #1 R post LE -Time 15:11 -Correct Patient No No Yes -Correct Side, Site, Position No No Yes -Correct Procedure No No Yes -Procedure Performed No No Yes -Type of Procedure Debridement -Clinical Debridement Subcutaneous -Tissue Removed Subcutaneous -Post Debridement (cm) - Length 0.1 0 0.4 -Post Debridement (cm) - Width 0.1 0 0.4 -Post Debridement (cm) - Depth 0.1 0 0.3 -Total Square (Post) (cm) 0.01 0 0.16 -Area of Debridement (cm) - Length 0.1 0 0.4 -Area of Debridement (cm) - Width 0.1 0 0.4 -Total Square (Area) (cm) 0.01 0 0.16 -Tunneling No -Undermining/Tunneling No -Circular Undermining No -Wound/Ulcer Outcome Healed- Healed- Not Healed Surgical Epithelialized Closure -Ulcer Cleansing Rinsed/ Irrigated with Saline -Foul Odor after Cleansing No -Bioengineered Tissue No -Bleeding Controlled with Pressure Pressure -Treatment Response Procedure Procedure Tolerated Well Tolerated Well -Debridement - Subq, 1st 20sq cm Yes Pain Scale: 0-10 Numeric Is Patient Pain Free? Yes Yes Yes - Nurse 3 - General Ulcer D/C NN Start: 07/18/23 10:01 Freq: Status: Active Protocol: Activity Type Activity Date Activity User E-sign Co-sign Detail Recorded Client Recorded Date Recorded By Document 07/18/23 10:25 Laptop 07/18/23 10:26 Edit Result 07/18/23 10:25 (1) [id number] 07/19/23 06:42 PL Document 08/08/23 16:04 RB Desktop 08/08/23 16:04 RB (1) Right - Lotion applied to leg before => No compression wrap - Multi-Layered Wrap Application => Multi-Layer Comp - => Right ($) 07/18/23 08/08/23 10:25 16:04 Wound Care Center Nurse 3 #1 R post LE -Ulcer Cleansing Rinsed/ Rinsed/ Irrigated with Irrigated with Saline Saline -Primary Dressing Applied Coban: 2 Layer Promogran System Hannah Matter -Other Dressing betadine and gauze -Primary Dressing Covered/Secured with Dry Gauze Dry Gauze -Coban: 2 Layer System 1 -Promogran Hannah Matter 1 Right -Lotion applied to leg before No compression wrap -Multi-Layered Wrap Application Multi-Layer Multi-Layer Comp - Right ($ Comp - Right ($ ) ) Pain Scale: 0-10 Numeric Is Patient Pain Free? Yes Yes WC - Visit Discharge Discharge Condition Stable Stable Ambulatory Status Ambulatory Ambulatory Transportation Private Auto Private Auto Medication Reconcilliation completed & Yes No provided to patient/care provider Clinical Summary of Care Provided Yes Yes Assessment/Plan Assessment/Plan (1) Ulcer of right lower extremity with fat layer exposed: CODE(S): L97.912 - Non-pressure chronic ulcer of unspecified part of rightlower leg with fat layer exposed PLAN: Patient was examined and evaluated. All findings were discussed with the patient. All questions were answered to the patient's satisfaction. Excisional debridement down to and including subcutaneous tissue to the right posterior calf full-thickness ulceration with a number 3 mm dermal curette without incident. Predebridement measurement is 0.3 x 0.3 x 0.2 cm. Postdebridement measurement is 0.4 x 0.4 x 0.3 cm. The ulceration was dressed with Hannah, and Steri-Stripped to try to heal by secondary intention. Patient will be placed in a double layer Tubigrip bilateral. She is free to shower but not soak. She was educated on signs symptoms of infection. She is to call the wound care center if she is concern for infection will send a prescription for Bactrim for 2 weeks. Will begin booking the patient for transfer flap and closure to the posterior aspect of the right calf. Patient was grateful her care and will follow-up in 1week. (2) Diabetes mellitus with diabetic polyneuropathy: CODE(S): E11.42 - Type 2 diabetes mellitus with diabetic polyneuropathy QUALIFIERS: Diabetes mellitus [facility] insulin use: with termination clerk use Diabetes mellitus type: type 2 Qualified Code(s): E11.42 - Type 2 diabetes mellitus with diabetic polyneuropathy; Z79.4 - residential (current) use of insulin (3) Lymphedema: CODE(S): I89.0 - Lymphedema, not elsewhere classified PLAN: Continue to wear her compression bandages. 08/15/23 1600 <Electronically signed by Sebas Lord DPM> Cosigner Signature (if applicable): CC: ~ Signed [facility] Work Phone: 1(574) 958-514211-22-2023 Progress note Author Sebas Lord [facility] August 08, 2023 3:52pm Note Date/Time August 08, 2023 3:52pm [facility] [address] [place] [address] Progress Note - Wound Care 08/08/23 1550 MR#: [id number] Acct: [id number] Name: NANCI RODRIGUEZ Rep #:[id number] : 1980 42 From: Sebas Dhaliwal PM PCP: Dr. Rodri Chauhan MD Status:RE G RCR Location: History of Present Illness Date of Service: 08/08/23 Chief Complaint: Ulceration right posterior leg History of Wound: Ulceration right posterior leg Subjective Subjective Ms. Rodriguez is a 42-year-old diabetic female presenting to the wound care center today for follow-up and evaluation of reopening of full-thickness ulceration to the posterior aspect of the right calf. Patient admits that the ulceration had healed. She does admit to swelling to her right leg that most likely caused herto reopen. She denies smoking. She states her blood sugars under control. Shedenies trauma. Denies constitutional symptoms. No other pedal complaints at this time. Objective Data Objective Data Vital Signs: Vital Signs Temp Pulse Resp BP O2 Del Method 96.4 F L 118 H 22 H 121/94 H Room Air 08/08/23 14:57 08/08/23 14:57 08/08/23 14:57 08/08/23 14:57 08/08/23 14:57 Oxygen Delivery Method Room Air Weight: 160.223 kg Body Mass Index (BMI) 62.5 Physical Exam Narrative Neurovascular status unchanged. Evidence of full-thickness ulceration of the posterior calf measuring 0.4 x 0.4 x 0.3 cm. Wound base is fibrogranular in nature. Sanguinous drainage noted. No sign of infection. No erythema no SOI. Pain on palpation to full-thickness ulceration. No pain with calf compression. Excisional debridement down to and including subcutaneous tissue to the right posterior calf full-thickness ulceration with a number 3 mm dermal curette without incident. Predebridement measurement is 0.3 x 0.3 x 0.2 cm. Postdebridement measurement is 0.4 x 0.4 x 0.3 cm. Debridement Note Debridement Note Debridement Free Text: Excisional debridement down to and including subcutaneoustissue to the right posterior calf full-thickness ulceration with a number 3 mm dermal curette without incident. Predebridement measurement is 0.3 x 0.3 x 0.2 cm. Postdebridement measurement is 0.4 x 0.4 x 0.3 cm. Post-Debridement Measurements and Additional Note: Post-Debridement Measurements/Treatment - Nurse 1 - General Ulcer Assessment Start: 07/18/23 10:01 Freq: Status: Active Protocol: PANCHITO.SAY Activity Type Activity Date Activity User E-sign Co-sign Detail Recorded Client Recorded Date Recorded By Document 07/18/23 10:01 DL Desktop 07/18/23 10:08 DL Document 07/25/23 14:55 GM Desktop 07/25/23 15:07 GM Document 08/08/23 14:57 MW Desktop 08/08/23 15:06 MW 07/18/23 07/25/23 08/08/23 10:01 14:55 14:57 - Today's Visit Information Type of service Follow-up Visit Follow-up Visit Follow-up Visit (Physician/SENIOR TRAINER (Physician/SENIOR TRAINER (Physician/SENIOR TRAINER ) ) ) Arrival Mode Ambulatory Ambulatory Ambulatory Transfer Assistance None None None Accompanied by self Patient Identification Verified (Name & Yes Yes Yes ) Patient Requires Transmission-Based Yes No No Precautions Safety Precautions NA NA NA Finger Stick Blood Sugar(mg/dl) (if 153 135 153 indicated): Blood Sugar Stated by Stated by Patient Patient Height and Weight Body Mass Index (BMI) 62.5 62.5 62.5 BMI Classification Obese Obese Obese Vital Signs Temperature (97.8 F-99.1 F) 97 F L 96.5 F L 96.4 F L Temperature Source Temporal Temporal Temporal Pulse Rate (60-100) 118 H 98 118 H Pulse Location Monitor Monitor Monitor Respiratory Rate (12-18) 22 H 22 H Respiratory rate source Observation Observation Oxygen Delivery Method Room Air Room Air Blood Pressure (90/60-120/80) 150/96 H 144/72 H 121/94 H Blood Pressure Mean (mm Hg) 114 96 103 Source Monitor Monitor Monitor Position Semi-Fowlers Sitting Blood Pressure Location Right Arm Left Forearm History Since Last Visit- (Skip if this is Patient's initial visit) Have you changed medications since your No No No last visit? Any new allergies or adverse reactions No No No Had a fall/change in ADL's that may No No No increase risk of falls Signs or symptoms of abuse and/or No No No neglect since last visit Have you been in the hospital since your No No No last visit? Has dressing in place as prescribed Yes Yes Yes Has compression in place as prescribed Yes Yes Yes Has offloadiing in place as prescribed Yes No N/A Experienced any changes in pain level or No No No management Left Footwear Regular Shoe Right Footwear Regular Shoe Pain Scale: 0-10 Numeric Is Patient Pain Free? Yes Yes Yes WC - Nurse 1 - General Ulcer Measurement Start: 07/18/23 10:01 Freq: Status: Active Protocol: Activity Type Activity Date Activity User E-sign Co-sign Detail Recorded Client Recorded Date Recorded By Document 07/18/23 10:01 DL Desktop 07/18/23 10:08 DL Document 07/25/23 14:55 GM Desktop 07/25/23 15:07 GM Document 08/08/23 14:57 MW Desktop 08/08/23 15:06 MW 07/18/23 07/25/23 08/08/23 10:01 14:55 14:57 Wound Center Nurse 1 #1 R post LE -Combined with other wound No No -Current Size (cm) - Length 0.1 0.3 -Current Size (cm) - Width 0.1 0.3 -Current Size (cm) - Depth 0.1 0.1 -Total Square Cm 0.01 0.09 -Date of Last Picture (Recall this 08/08/23 field) -Photo Taken No Yes -Epithelialization None Present -Tunneling No -Undermining/Tunneling No -Circular Undermining No -Exudate Amt None Present Small None Present -Exudate Type Serous -Wound Margin Indistinct, Non Flat & Intact Flat & Intact -Visible -Granulation Amt Large (67-100%) Small (1-33%) None Present (0 %) -Granulation Quality [place] N/A -Slough/Fibrin Yes -Necrosis Amt None Present (0 Small (1-33%) Medium (34-66%) %) -Necrotic Tissue Type Adherent Slough Adherent Slough -Structure Exposed N/A N/A -Texture (Rachele-wound Skin Appearance) Scarring Assessed Assessed, Localized Edema ,Scarring,Rash -Moisture (Rachele-wound Skin Appearance) No Abnormality Assessed No Abnormality, Assessed -Color (Rachele-wound Skin Appearance) No Abnormality Assessed No Abnormality, Assessed -Temperature (Rachele-wound Skin No Abnormality No Abnormality Appearance) (Pt Warm) (Pt Warm) -Tenderness on Palpation (Rachele-wound No No No Skin Appearance) -Ulcer Cleansing Soap and Water Soap and Water Rinsed/ Irrigated with Saline -Foul Odor after Cleansing No No No -Anesthetic Used 5% Lidocaine 5% Lidocaine Gel Gel -Wound Comment(s) Biopsy site- suture intact Lower Limb Edema Present Yes Yes Right Calf (cm) 58.5 58.0 64.5 Right Ankle (cm) 32 31.0 33.0 Left Calf (cm) 56.0 Left Ankle (cm) 30.5 WC - Nurse 2 - General Ulcer CM Notes Start: 07/18/23 10:01 Freq: Status: Active Protocol: Activity Type Activity Date Activity User E-sign Co-sign Detail Recorded Client Recorded Date Recorded By Document 07/18/23 10:24 Laptop 07/18/23 10:25 Document 07/25/23 15:32 Laptop 07/25/23 15:34 07/18/23 07/25/23 10:24 15:32 Wound Center Nurse 2 #1 R post LE -Correct Patient No No -Correct Side, Site, Position No No -Correct Procedure No No -Procedure Performed No No -Post Debridement (cm) - Length 0.1 0 -Post Debridement (cm) - Width 0.1 0 -Post Debridement (cm) - Depth 0.1 0 -Total Square (Post) (cm) 0.01 0 -Area of Debridement (cm) - Length 0.1 0 -Area of Debridement (cm) - Width 0.1 0 -Total Square (Area) (cm) 0.01 0 -Wound/Ulcer Outcome Healed- Healed- Surgical Epithelialized Closure -Bleeding Controlled with Pressure -Treatment Response Procedure Tolerated Well Pain Scale: 0-10 Numeric Is Patient Pain Free? Yes Yes - Nurse 3 - General Ulcer D/C NN Start: 07/18/23 10:01 Freq: Status: Active Protocol: Activity Type Activity Date Activity User E-sign Co-sign Detail Recorded Client Recorded Date Recorded By Document 07/18/23 10:25 JF Laptop 07/18/23 10:26 JF Edit Result 07/18/23 10:25 JF (1) [id number] 07/19/23 06:42 PL (1) Right - Lotion applied to leg before => No compression wrap - Multi-Layered Wrap Application => Multi-Layer Comp - => Right ($) 07/18/23 10:25 Wound Care Center Nurse 3 #1 R post LE -Ulcer Cleansing Rinsed/ Irrigated with Saline -Primary Dressing Applied Coban: 2 Layer System -Other Dressing betadine and gauze -Primary Dressing Covered/Secured with Dry Gauze -Coban: 2 Layer System 1 Right -Lotion applied to leg before No compression wrap -Multi-Layered Wrap Application Multi-Layer Comp - Right ($ ) Pain Scale: 0-10 Numeric Is Patient Pain Free? Yes WC - Visit Discharge Discharge Condition Stable Ambulatory Status Ambulatory Transportation Private Auto Medication Reconcilliation completed & Yes provided to patient/care provider Clinical Summary of Care Provided Yes Assessment/Plan Assessment/Plan (1) Ulcer of right lower extremity with fat layer exposed: CODE(S): L97.912 - Non-pressure chronic ulcer of unspecified part of rightlower leg with fat layer exposed PLAN: Patient was examined evaluated. All findings were discussed with the patient. All questions were answered to the patient satisfaction. Excisional debridement down to and including subcutaneous tissue to the right posterior calf full-thickness ulceration with a number 3 mm dermal curette without incident. Predebridement measurement is 0.3 x 0.3 x 0.2 cm. Postdebridement measurement is 0.4 x 0.4 x 0.3 cm. The ulceration was dressed with Hannah, Betadine paint dry sterile dressing and a 3M wrap was applied to the left lower extremity. She was instructed leave the wrap clean dry and intact and follow-up Sunday for nursing visit. Educated patient on strict glycemic control. Educated the patient on smoking cessation. Follow-up in 1 week. (2) Diabetes mellitus with diabetic polyneuropathy: CODE(S): E11.42 - Type 2 diabetes mellitus with diabetic polyneuropathy QUALIFIERS: Diabetes mellitus type: type 2 Diabetes mellitus shelter insulin use: with termination clerk use Qualified Code(s): E11.42 - Type 2 diabetes mellitus with diabetic polyneuropathy; Z79.4 - residential (current) use of insulin (3) Lymphedema: CODE(S): I89.0 - Lymphedema, not elsewhere classified 08/08/23 1552 <Electronically signed by Sebas Lord DPM> Cosigner Signature (if applicable): CC: ~ Signed [facility] Work Phone: 1([phone]) 820-458311-22-2023 Miscellaneous Notes* Telephone Encounter - Marielena Nogueira RN - 08/08/2023 11:59 AM EST [place], pharmacist at [facility] [place] calling regarding pt's script for Tylenol with Codeine#3 sent by Johnson CASON yesterday. Reports there is scrum product owner shortage for this medication. Asking provider if wishes to have patient look for a different pharmacy to try to fill this or change the script to something else? Pharmacist states other options that they can fill would be: -codeine 30 mg tablets ordered with separate script of tylenol (would need electronic script for this) -tramadol Please call pharmacy with response. Thank you. * Telephone Encounter - Kailee Salinas LPN - 08/08/2023 10:29 AM EST [facility] called and they still did not get the prescription for Tylenol with Codeine. Pharmacist came on and the prescription was given verbally. Kailee Salinas LPN documented in this encounterDayton [facility]11-21-2023 Miscellaneous Notes* Telephone Encounter - Johnson Rm APRN.CNS - 08/07/2023 4:43 PM EST sent * Telephone Encounter - Vianney Elise RN - 08/07/2023 4:17 PM EST [facility] calls back and reports that they didn't receive the prescription sent earlier today and requesting a new one be sent. Verified twice that is what is needed. Re-pended. Vianney Elise RN * Telephone Encounter - Marielena Nogueira RN - 08/07/2023 2:01 PM EST [facility] calling regarding pt's script for Tylenol with Codeine #3, ordered by Kyle MACKEY. Reports there is scrum product owner shortage for this medication. Asking provider if wishes to have patient look for a different pharmacy to try to fill this or change the script to something else? Please call pharmacy with response. Thank you. documented in this encounterDayton Children'S Hospital11-21-2023 Miscellaneous Notes* Telephone Encounter - Sylwia Marcial LPN - 08/07/2023 12:33 PM EST PATIENT NOTIFIED OF SAME. * Telephone Encounter - Zunilda Jaramillo APRN.CNP - 08/07/2023 12:29 PM EST I sent this in but decreased from the every 6 to every 8 hours as needed. If pain is persistent andnot improving then she should be seen to decide on a more termination clerk pain management plan. * Telephone Encounter - Kailee Salinas LPN - 08/07/2023 11:28 AM EST Spoke with pt and she reports last time she was in the office she was given Tylenol with Codeine. Pt asking for a refill on this. Please advise pt. Kailee Salinas LPN Patient has been identified by name and date of : Yes, Provider Dr. Chauhan Date 08/07/23 Time 11:29 am Patient phones [...] you. Kailee Salinas LPN. documented in this encounterDayton Children'S Hospital11-21-2023 Miscellaneous Notes* Telephone Encounter - Kailee Salinas LPN - 08/07/2023 11:27 AM EST Spoke with pt and information listed below given. Pt verbalizes understanding. Next 2 apts booked. Kailee Salinas LPN * Telephone Encounter - Rodri Chauhan MD - 08/07/2023 12:53 AM EST 07/31 Virtual visit with Zunilda for urgent [...] as needed for nausea/vomiting. Authorizing Provider: RODRI CHAUHAN naproxen (NAPROSYN) 500 mg tablet 60 tablet 3 Sig: Take 1 tablet by mouth two times a day as needed (for pain/inflammation). Take with food. Authorizing Provider: RODRI CHAUHAN MD * Telephone Encounter - sAhley Jarrett RN - 08/06/2023 3:07 PM EST Patient has been identified by name and date of : Yes, Provider Dr Chauhan Date 08/06/23 [id number]. Pharmacy phones for refill(s): Requested Prescriptions Pending [...] you. Ashley Jarrett RN. documented in this encounterDayton Children'S Hospital11-14-2023 Miscellaneous Notes* Telephone Encounter - Kailee Salinas LPN - 07/31/2023 10:55 AM EST Prescription below failed to go thru to the pharmacy. Please resend. Kailee Salinas LPN documented in this encounterDayton Children'S Hospital11-14-2023 History of Present illness Narrative* Zunilda Jaramillo APRN.NARENDRA - 07/31/2023 8:28 AM EST VIRTUAL VISIT PROGRESS NOTE This is an [...] licensure. The patient's identity and physical location wereverified at the time of this visit. Either the patient or their legal community representative has been informed of the risks and benefits of -- and alternatives to -- treatment through a remote evaluation andconsents to proceed with the evaluation remotely. SUBJECTIVE Nanci Rodriguez is a 42 year old female here [...] shortness of breath or trouble breathing. Has COPDand asthma. [place] like other inhalers did not work as well. Albuterol occasionally. Back pain is in lower back and goes in to hip. Has had relief with use of tylenol-codeine in the past and would likea refill of this. Her medications were reviewed [...] mouth daily with breakfast. Dose change, take onedaily albuterol HFA (VENTOLIN HFA) 90 mcg/actuation inhaler Inhale 2 Puffs as instructed every 4 hours asneeded. CPAP Continue CPAP @ 15 cm of [...] 02/28/2018 Comment: Abnormal stress / SPECT per [facility] notes. Normal coronaries on heart catheterization [facility] 02/26/2018 Dr. Brooks Morbid Obesity ([facility]) - 09/27/2016 Umbilical Hernia Without Obstruction Or Gangrene - 09/22/2016 Diabetes Mellitus Type 2, Controlled, Without Complications ([facility]) - 12/30/2015 Lumbar Spondylosis - 02/17/2013 Ddd (Degenerative Disc Disease), Lumbar - 02/17/2013 Chronic Radicular Low Back Pain - 07/17/2012 Papanicolaou Smear of Cervix With Low Grade Squamous Intraepithelial Lesion ([facility]) - 12/26/2011 Moderate depressed bipolar I disorder ([facility]) - 12/26/2011 Migraine Without Aura - [...] HFA 50 MCG-5 MCG/ACTUATION AEROSOL INHALER Zunilda Jaramillo APRN.CNP PDMP website checked and validated. All prescriptions have been APPROPRIATELY filled. No suspiciousactivity was identified. 07/31/2023 by Zunilda Jaramillo APRN.CNP Patient verbalizes understanding of instructions from today's visit and in agreement with treatmentplan. Questions answered. Agrees to call the office if symptoms do not improve or if they worsen. Return if symptoms worsen or fail to improve, for Keep next scheduled appointment.. Patient has consented to patient-provider interaction via telephone/virtual visit for the medical decision making documented in this telephone/virtual visit encounter. Total Time Spent: 18 minutes documented in this encounterDayton Children'S Hospital11-13-2023 Miscellaneous Notes* Telephone Encounter - Vandana Mathias LPN - 07/30/2023 4:02 PM EST Patient notified, scheduled VV. Nanci was asking for tablet form not liquid. Vandana Mathias LPN * Telephone Encounter - Zunilda Jaramillo APRN.CNP - 07/30/2023 3:39 PM EST Please let her know I do not see any recent prescriptions in her chart for the tylenol with codeinecough syrup. If she is having a bad cough and needs this medication then I Recommend she do a virtual visit. * Telephone Encounter - Jo Ann Robert - 07/30/2023 9:28 AM EST Patient called to request Tylenol with codeine for a cough. Said Dr. Chauhan has prescribed it forher in the past. Not on med list. Please advise at [phone]; uses [facility] in [place]. documented in this encounterDayton Children'S Hospital11-10-2023 Miscellaneous Notes* Telephone Encounter - Vianney Elise RN - 07/27/2023 9:07 AM EST Patient has been identified by name and [...] you. Vianney Elise RN. documented in this encounterDayton Children'S Hospital11-08-2023 Progress note Author Sebas Lord [facility] July 25, 2023 3:41pm Note Date/Time July 25, 2023 3 :41pm [facility] [address] [place] [address] Progress Note - Wound Care 07/25/23 1539 MR#: [id number] Acct: [id number] Name: NANCI RODRIGUEZ Rep #:[id number] : 1980 42 From: Sebas BEST PCP: Dr. Rodri Chauhan MD Status:RE G RCR Location: History of Present Illness Date of Service: 07/25/23 Chief Complaint: Ulceration right posterior leg History of Wound: Ulceration right posterior leg Subjective Subjective Ms. Rodriguez is a 42-year-old diabetic female presenting for follow-up of delayed primary closure to the right posterior calf. She has kept her dressing clean dry and intact. She admits they rolled down a little bit secondary to causing her swelling to decrease. She denies any pain in the posterior aspect of the level of the leg primary closure. Her blood sugars well controlled. She continues to smoke. She denies trauma. Denies constitutional symptoms. The patient complains of's time. Objective Data Objective Data Vital Signs: Vital Signs Temp Pulse Resp BP O2 Del Method 96.5 F L 98 22 H 144/72 H Room Air 07/25/23 14:55 07/25/23 14:55 07/18/23 10:01 07/25/23 14:55 07/25/23 14:55 Oxygen Delivery Method Room Air Weight: 160.223 kg Body Mass Index (BMI) 62.5 Physical Exam Narrative Neurovascular status unchanged. Nonpitting edema appreciated to the right lowerextremity. Incision at the level of the leg primary closure is well coapted with suture. Evidence of sanguinous crust. No erythema or proximal streaking or sign of infection. Inferior ulceration is healed to the posterior right calf. No pain with calf compression. Debridement Note Debridement Note Post-Debridement Measurements and Additional Note: Post-Debridement Measurements/Treatment - Nurse 1 - General Ulcer Assessment Start: 07/18/23 10:01 Freq: Status: Active Protocol: WC.LOWOWENT Activity Type Activity Date Activity User E-sign Co-sign Detail Recorded Client Recorded Date Recorded By Document 07/18/23 10:01 DL Desktop 07/18/23 10:08 DL Document 07/25/23 14:55 GM Desktop 07/25/23 15:07 07/18/23 07/25/23 10:01 14:55 - Today's Visit Information Type of service Follow-up Visit Follow-up Visit (Physician/SENIOR TRAINER (Physician/SENIOR TRAINER ) ) Arrival Mode Ambulatory Ambulatory Transfer Assistance None None Patient Identification Verified (Name & Yes Yes ) Patient Requires Transmission-Based Yes No Precautions Safety Precautions NA NA Finger Stick Blood Sugar(mg/dl) (if 153 135 indicated): Blood Sugar Stated by Stated by Patient Patient Height and Weight Body Mass Index (BMI) 62.5 62.5 BMI Classification Obese Obese Vital Signs Temperature (97.8 F-99.1 F) 97 F L 96.5 F L Temperature Source Temporal Temporal Pulse Rate (60-100) 118 H 98 Pulse Location Monitor Monitor Respiratory Rate (12-18) 22 H Respiratory rate source Observation Oxygen Delivery Method Room Air Blood Pressure (90/60-120/80) 150/96 H 144/72 H Blood Pressure Mean (mm Hg) 114 96 Source Monitor Monitor Position Semi-Fowlers Blood Pressure Location Right Arm History Since Last Visit- (Skip if this is Patient's initial visit) Have you changed medications since your No No last visit? Any new allergies or adverse reactions No No Had a fall/change in ADL's that may No No increase risk of falls Signs or symptoms of abuse and/or No No neglect since last visit Have you been in the hospital since your No No last visit? Has dressing in place as prescribed Yes Yes Has compression in place as prescribed Yes Yes Has offloadiing in place as prescribed Yes No Experienced any changes in pain level or No No management Pain Scale: 0-10 Numeric Is Patient Pain Free? Yes Yes WC - Nurse 1 - General Ulcer Measurement Start: 07/18/23 10:01 Freq: Status: Active Protocol: Activity Type Activity Date Activity User E-sign Co-sign Detail Recorded Client Recorded Date Recorded By Document 07/18/23 10:01 DL Desktop 07/18/23 10:08 DL Document 07/25/23 14:55 Desktop 07/25/23 15:07 07/18/23 07/25/23 10:01 14:55 Wound Center Nurse 1 #1 R post LE -Combined with other wound No -Current Size (cm) - Length 0.1 -Current Size (cm) - Width 0.1 -Current Size (cm) - Depth 0.1 -Total Square Cm 0.01 -Photo Taken No -Exudate Amt None Present Small -Exudate Type Serous -Wound Margin Indistinct, Non Flat & Intact -Visible -Granulation Amt Large (67-100%) Small (1-33%) -Granulation Quality [place] -Necrosis Amt None Present (0 Small (1-33%) %) -Necrotic Tissue Type Adherent Slough -Structure Exposed N/A N/A -Texture (Rachele-wound Skin Appearance) Scarring Assessed -Moisture (Rachele-wound Skin Appearance) No Abnormality Assessed -Color (Rachele-wound Skin Appearance) No Abnormality Assessed -Temperature (Rachele-wound Skin No Abnormality Appearance) (Pt Warm) -Tenderness on Palpation (Rachele-wound No No Skin Appearance) -Ulcer Cleansing Soap and Water Soap and Water -Foul Odor after Cleansing No No -Anesthetic Used 5% Lidocaine Gel -Wound Comment(s) Biopsy site- suture intact Lower Limb Edema Present Yes Right Calf (cm) 58.5 58.0 Right Ankle (cm) 32 31.0 Left Calf (cm) 56.0 Left Ankle (cm) 30.5 PANCHITO - Nurse 2 - General Ulcer CM Notes Start: 07/18/23 10:01 Freq: Status: Active Protocol: Activity Type Activity Date Activity User E-sign Co-sign Detail Recorded Client Recorded Date Recorded By Document 07/18/23 10:24 [facility] 07/18/23 10:25 Document 07/25/23 15:32 [facility] 07/25/23 15:34 07/18/23 07/25/23 10:24 15:32 Wound Center Nurse 2 #1 R post LE -Correct Patient No No -Correct Side, Site, Position No No -Correct Procedure No No -Procedure Performed No No -Post Debridement (cm) - Length 0.1 0 -Post Debridement (cm) - Width 0.1 0 -Post Debridement (cm) - Depth 0.1 0 -Total Square (Post) (cm) 0.01 0 -Area of Debridement (cm) - Length 0.1 0 -Area of Debridement (cm) - Width 0.1 0 -Total Square (Area) (cm) 0.01 0 -Wound/Ulcer Outcome Healed- Healed- Surgical Epithelialized Closure -Bleeding Controlled with Pressure -Treatment Response Procedure Tolerated Well Pain Scale: 0-10 Numeric Is Patient Pain Free? Yes Yes - Nurse 3 - General Ulcer D/C NN Start: 07/18/23 10:01 Freq: Status: Active Protocol: Activity Type Activity Date Activity User E-sign Co-sign Detail Recorded Client Recorded Date Recorded By Document 07/18/23 10:25 JF Laptop 07/18/23 10:26 JF Edit Result 07/18/23 10:25 JF (1) [id number] 07/19/23 06:42 PL (1) Right - Lotion applied to leg before => No compression wrap - Multi-Layered Wrap Application => Multi-Layer Comp - => Right ($) 07/18/23 10:25 Wound Care Center Nurse 3 #1 R post LE -Ulcer Cleansing Rinsed/ Irrigated with Saline -Primary Dressing Applied Coban: 2 Layer System -Other Dressing betadine and gauze -Primary Dressing Covered/Secured with Dry Gauze -Coban: 2 Layer System 1 Right -Lotion applied to leg before No compression wrap -Multi-Layered Wrap Application Multi-Layer Comp - Right ($ ) Pain Scale: 0-10 Numeric Is Patient Pain Free? Yes WC - Visit Discharge Discharge Condition Stable Ambulatory Status Ambulatory Transportation Private Auto Medication Reconcilliation completed & Yes provided to patient/care provider Clinical Summary of Care Provided Yes Assessment/Plan Assessment/Plan (1) Ulcer of right lower extremity with fat layer exposed: CODE(S): L97.912 - Non-pressure chronic ulcer of unspecified part of rightlower leg with fat layer exposed PLAN: Patient was examined evaluated. All fines were discussed with the patient. All questions were answered to the patient satisfaction. Betadine paint was applied to the suture, suture removed on the side. Incision is closed. There is evidence of slight maceration secondary to dressing rubbingwhen it rolled down. The area was wiped clean and patted dry. Skin graft prep was applied to the suture removal area followed by Steri-Strips and Betadine paint. The patient was instructed to leave the Steri-Strips and Band-Aid that was also done clean dry and intact. She can shower but not soak her right leg. Double layer single Tubigrip's were donned to bilateral lower extremity. The patient will continue to observe the posterior right leg for any signs of infection or concern and follow back in the wound care center in 2 weeks or sooner if needed. She left the office pleased with the visit. (2) Type 2 diabetes mellitus with foot ulcer: CODE(S): E11.621 - Type 2 diabetes mellitus with foot ulcer; L97.509 - Non- pressure chronic ulcer of other part of unspecified foot with unspecified severity QUALIFIERS: Diabetes mellitus mcfp insulin use: with termination clerk use Qualified Code(s): E11.621 - Type 2 diabetes mellitus with foot ulcer;L97.509 - Non- pressure chronic ulcer of other part of unspecified foot with unspecified severity; Z79.4 - termination clerk (current) use of insulin (3) Diabetes mellitus with diabetic polyneuropathy: CODE(S): E11.42 - Type 2 diabetes mellitus with diabetic polyneuropathy QUALIFIERS: Diabetes mellitus type: type 2 Diabetes mellitus shelter insulin use: with mcfp use Qualified Code(s): E11.42 - Type 2 diabetes mellitus with diabetic polyneuropathy; Z79.4 - termination clerk (current) use of insulin (4) Lymphedema: CODE(S): I89.0 - Lymphedema, not elsewhere classified 07/25/23 1541 <Electronically signed by Sebas Lord DPM> Cosigner Signature (if applicable): CC: ~ Signed [facility] Work Phone: 1(356) 250-641111-06-2023 Miscellaneous Notes* Addendum Note - Connie Strong APRN.CNP - 07/23/2023 4:35 PM ESTAddended by: CONNIE STRONG on: 07/23/2023 04:35 PM Modules accepted: Orders documented in this encounterDayton [facility]11-[facility]23 Miscellaneous Notes* Telephone Encounter - Cnonie Strong APRN.CNP - 07/23/2023 4:21 PM EST message sent. documented in this encounterDayton Children'[facility] Hospital11-06-2023 History of Present illness Narrative* Maribel Hughes RT(R) - 07/23/2023 4:00 PM EST Radiology Service Progress Note PATIENT NAME: Nanci Rodriguez DATE OF SERVICE: July 23, 2023 TIME: 4:04 PM PATIENT IDENTITY VERIFICATION COMPLETED USING TWO (2) IDENTIFIERS: Name and Date of confirmedby patient verbally. FALL SCREENING: Has the patient had 2 falls in the last year or 1 fall with injury or currently using an Ambulatory Assistive Device (Walker, Cane, Wheelchair, Crutches, etc.)? No PATIENT GENDER DATA: Female. status: : No status: NO. PATIENT RELEVANT IMPLANT DATA REVIEWED: Not Applicable RADIOLOGY DEPARTMENT: General X-ray: Exam(s) Completed: Upper Extremity X- Ray(s): Wrist, right PERIPHERAL IV DATA: Not applicable SIGNED BY: RT Margaret(R) July 23, 2023 4:04 PM documented in this encounterDayton Children'S Hospital11-06-2023 History of Present illness Narrative* Connie Strong APRN.SENIOR TRAINER - 07/23/2023 3:48 PM EST This note was created using Meetmealsriter. Subjective Nanci Rodriguez is a 42 year old female. HPI by patient: Nanci Rodriguez is a 42 year old presenting to [...] Will get xray, result will go to [employer] as a message. -Steroids with food. Ice and heat in rotation. -OTC tylenol as directed on the bottle -Make follow up with primary care for monitoring and resolution in symptoms. -Signs that warrant an ER evaluation: Sudden change/worsening in condition, lethargy, signs of dehydration, fever greater than 102 F thatis not responding to Tylenol or ibuprofen (Motrin, [...] summary. The patient is agreeable to this planof care and follow-up instructions have been explained in detail. The patient has received these instructions in written format and have expressed an understanding of the after visit summary. Medical Decision Making: Level: 4 - Moderate I spent a total of 20 minutes on the date of the service which included preparing to see the patient, [id number] patient care, completing clinical documentation, obtaining and/or reviewing separately obtained history, performing a medically appropriate examination, counseling and educating the pat ient/family/caregiver, and ordering medications, tests, or procedures. documented in this encounterDayton Children'S Hospital11-06-2023 Instructions* Patient Instructions* Connie Strong APRN.CNP - 07/23/2023 3:45 PM EST (K04.7) Dental infection (primary encounter diagnosis) Plan: cephALEXin (KEFLEX) 500 mg capsule, Chlorhexidine Gluconate (PERIDEX) 0.12 % solution (M25.531) Right wrist pain Plan: methylPREDNISolone (MEDROL DOSE-PACK) 4 mg Dose-Pack Dental infection, PCN allergy, will rx cephalexin and peridex mouth wash. -Right wrist pain with no known injury. Will get xray, result will go to [employer] as a message. -Steroids with food. Ice and heat in rotation. -OTC tylenol as directed on the bottle -Make follow up with primary care for monitoring and resolution in symptoms. -Signs that warrant an ER evaluation: Sudden change/worsening in condition, lethargy, signs of dehydration, fever greater than 102 F thatis not responding to Tylenol or ibuprofen (Motrin, Advil), drooling, difficulty swallowing, difficulty breathing, shortness of breath, chest pain, evidence of airway compromise (tripod position, neck extension, retractions), seizures, changes in mental status, or other concerns. documented in this encounterDayton Children'S Hospital11-01-2023 Progress note Author Sebas Lord [facility] July 18, 2023 10:31am Note Date/Time July 18, 2023 1 0:32am [facility] [address] [place] [address] Progress Note - Wound Care 07/18/23 1027 MR#: [id number] Acct: [id number] Name: NANCI RODRIGUEZ Rep #:[id number] : 1980 42 From: Sebas BEST PCP: Dr. Rodri Chauhan MD Status:RE G RCR Location: History of Present Illness Date of Service: 07/18/23 Chief Complaint: Ulceration right posterior leg History of Wound: Ulceration right posterior leg Subjective Subjective Ms. Rodriguez is a 42-year-old diabetic female presenting for follow-up of delayed primary closure to the right posterior calf. She has kept her dressing clean dry and intact. She admits they rolled down a little bit secondary to causing her swelling to decrease. She denies any pain in the posterior aspect of the level of the leg primary closure. Her blood sugars well controlled. However she does admit to drinking 0 sugar soda pop as well as smoking. She denies trauma. Denies constitutional symptoms. The patient complains of's time. Objective Data Objective Data Vital Signs: Vital Signs Temp Pulse Resp BP 97 F L 118 H 22 H 150/96 H 07/18/23 10:01 07/18/23 10:01 07/18/23 10:01 07/18/23 10:01 Weight: 160.223 kg Body Mass Index (BMI) 62.5 Physical Exam Narrative Neurovascular status unchanged. Nonpitting edema appreciated to the right lowerextremity. Incision at the level of the leg primary closure is well coapted with suture. Evidence of sanguinous crust. No erythema or proximal streaking or sign of infection. Inferior ulceration is healed to the posterior right calf. No pain with calf compression. Debridement Note Debridement Note Post-Debridement Measurements and Additional Note: Post-Debridement Measurements/Treatment PANCHITO - Nurse 1 - General Ulcer Assessment Start: 07/18/23 10:01 Freq: Status: Active Protocol: WATSON Activity Type Activity Date Activity User E-sign Co-sign Detail Recorded Client Recorded Date Recorded By Document 07/18/23 10:01 DL Desktop 07/18/23 10:08 DL 07/18/23 10:01 WC - Today's Visit Information Type of service Follow-up Visit (Physician/SENIOR TRAINER ) Arrival Mode Ambulatory Transfer Assistance None Patient Identification Verified (Name & Yes ) Patient Requires Transmission-Based Yes Precautions Safety Precautions NA Finger Stick Blood Sugar(mg/dl) (if 153 indicated): Blood Sugar Stated by Patient Height and Weight Body Mass Index (BMI) 62.5 BMI Classification Obese Vital Signs Temperature (97.8 F-99.1 F) 97 F L Temperature Source Temporal Pulse Rate (60-100) 118 H Pulse Location Monitor Respiratory Rate (12-18) 22 H Respiratory rate source Observation Blood Pressure (90/60-120/80) 150/96 H Blood Pressure Mean (mm Hg) 114 Source Monitor History Since Last Visit- (Skip if this is Patient's initial visit) Have you changed medications since your No last visit? Any new allergies or adverse reactions No Had a fall/change in ADL's that may No increase risk of falls Signs or symptoms of abuse and/or No neglect since last visit Have you been in the hospital since your No last visit? Has dressing in place as prescribed Yes Has compression in place as prescribed Yes Has offloadiing in place as prescribed Yes Experienced any changes in pain level or No management Pain Scale: 0-10 Numeric Is Patient Pain Free? Yes PANCHITO - Nurse 1 - General Ulcer Measurement Start: 07/18/23 10:01 Freq: Status: Active Protocol: Activity Type Activity Date Activity User E-sign Co-sign Detail Recorded Client Recorded Date Recorded By Document 07/18/23 10:01 SHONA [employer] 07/18/23 10:08 DL 07/18/23 10:01 Wound Center Nurse 1 #1 R post LE -Current Size (cm) - Length 0.1 -Current Size (cm) - Width 0.1 -Current Size (cm) - Depth 0.1 -Total Square Cm 0.01 -Exudate Amt None Present -Wound Margin Indistinct, Non -Visible -Granulation Amt Large (67-100%) -Granulation Quality [place] -Necrosis Amt None Present (0 %) -Structure Exposed N/A -Texture (Rachele-wound Skin Appearance) Scarring -Moisture (Rachele-wound Skin Appearance) No Abnormality -Color (Rachele-wound Skin Appearance) No Abnormality -Tenderness on Palpation (Rachele-wound No Skin Appearance) -Ulcer Cleansing Soap and Water -Foul Odor after Cleansing No -Wound Comment(s) Biopsy site- suture intact Right Calf (cm) 58.5 Right Ankle (cm) 32 - Nurse 2 - General Ulcer CM Notes Start: 07/18/23 10:01 Freq: Status: Active Protocol: Activity Type Activity Date Activity User E-sign Co-sign Detail Recorded Client Recorded Date Recorded By Document 07/18/23 10:24 Goal [employer] 07/18/23 10:25 07/18/23 10:24 Wound Center Nurse 2 #1 R post LE -Correct Patient No -Correct Side, Site, Position No -Correct Procedure No -Procedure Performed No -Post Debridement (cm) - Length 0.1 -Post Debridement (cm) - Width 0.1 -Post Debridement (cm) - Depth 0.1 -Total Square (Post) (cm) 0.01 -Area of Debridement (cm) - Length 0.1 -Area of Debridement (cm) - Width 0.1 -Total Square (Area) (cm) 0.01 -Wound/Ulcer Outcome Healed- Surgical Closure -Bleeding Controlled with Pressure -Treatment Response Procedure Tolerated Well Pain Scale: 0-10 Numeric Is Patient Pain Free? Yes - Nurse 3 - General Ulcer D/C NN Start: 07/18/23 10:01 Freq: Status: Active Protocol: Activity Type Activity Date Activity User E-sign Co-sign Detail Recorded Client Recorded Date Recorded By Document 07/18/23 10:25 [employer] Laptop 07/18/23 10:26 07/18/23 10:25 Wound Care Center Nurse 3 #1 R post LE -Ulcer Cleansing Rinsed/ Irrigated with Saline -Primary Dressing Applied Coban: 2 Layer System -Other Dressing betadine and gauze -Primary Dressing Covered/Secured with Dry Gauze -Coban: 2 Layer System 1 Pain Scale: 0-10 Numeric Is Patient Pain Free? Yes WC - Visit Discharge Discharge Condition Stable Ambulatory Status Ambulatory Transportation Private Auto Medication Reconcilliation completed & Yes provided to patient/care provider Clinical Summary of Care Provided Yes Assessment/Plan Assessment/Plan (1) Ulcer of right lower extremity with fat layer exposed: CODE(S): L97.912 - Non-pressure chronic ulcer of unspecified part of rightlower leg with fat layer exposed PLAN: Patient was examined and evaluated. All findings were discussed with the patient. All questions were answered to the patient satisfaction. The patient's delayed primary closure site is well coapted with suture. Evidence of sanguinous crust throughout the suture and incision. No evidence of surgical wound dehiscence, erythema or proximal streaking or sign of infection. Inferior ulceration is healed. Edema is improving with wraps. The bilateral lower extremity will be dressed with, left Tubigrip, right 2 layer 3M wrap. Patient was instructed to leave the right lower extremity clean dry and intact. Follow-up in 1 week for evaluation. (2) Diabetes mellitus with diabetic polyneuropathy: CODE(S): E11.42 - Type 2 diabetes mellitus with diabetic polyneuropathy QUALIFIERS: Diabetes mellitus type: type 2 Diabetes mellitus shelter insulin use: with termination clerk use Qualified Code(s): E11.42 - Type 2 diabetes mellitus with diabetic polyneuropathy; Z79.4 - termination clerk (current) use of insulin PLAN: Continue strict blood sugar control to allow her operative site to heal unremarkably. (3) Lymphedema: CODE(S): I89.0 - Lymphedema, not elsewhere classified PLAN: Continue to compress her bilateral lower extremity to decrease her swelling. 07/18/23 1031 <Electronically signed by Sebas Lord DPM> Ramya Signature (if applicable): CC: ~ Signed [facility] Work Phone: [phone] 132-591410-27-2023 Instructions* Patient Instructions* Zunilda Jaramillo APRN.SENIOR TRAINER - 07/13/2023 3:[address] Glaser Locations [place] [id number] [facility] [address] [place] [address] Appointments Ready to get started? We d love to help you. To schedule a session with a registered dietitian to help you make nutrition and lifestyle changes to assist with weight loss, call [phone]. To schedule an appointment with a physician who specializes in medical weight management, call [phone]. documented in this encounterDayton Children'S Hospital10-27-2023 History of Present illness Narrative* Zunilda Jaramillo APRN.CNP - 07/13/2023 3:17 PM EDT SUBJECTIVE Nanci Rodriguez is a 42 year old female here today for a check up on her medical problems. Chief Complaint Patient presents with: Consult: would like referral for weight loss surgery HPI Nanci Rodriguez is a 42 year old female. Here [...] mouth daily with breakfast. Dose change, take onedaily albuterol HFA (VENTOLIN HFA) 90 mcg/actuation inhaler Inhale 2 Puffs as instructed every 4 hours asneeded. topiramate (TOPAMAX) 100 mg tablet Take 1 [...] 1 application to affected area once daily. (Patientnot taking: Reported on 07/13/2023) blood sugar diagnostic [...] 02/28/2018 Comment: Abnormal stress / SPECT per [facility] notes. Normal coronaries on heart catheterization [facility] 02/26/2018 Dr. Brooks Morbid Obesity ([facility]) - 09/27/2016 Umbilical Hernia Without Obstruction Or Gangrene - 09/22/2016 Diabetes Mellitus Type 2, Controlled, Without Complications ([facility]) - 12/30/2015 Lumbar Spondylosis - 02/17/2013 Ddd (Degenerative Disc Disease), Lumbar - 02/17/2013 Chronic Radicular Low Back Pain - 07/17/2012 Papanicolaou Smear of Cervix With Low Grade Squamous Intraepithelial Lesion ([facility]) - 12/26/2011 Moderate depressed bipolar I disorder ([facility]) - 12/26/2011 Migraine Without Aura - [...] with serious comorbidity and body mass index (BMI)of 60.0 to 69.9 in adult ([facility]) - ICD9: 278.01, V85.44, ICD10: E66.01, Z68.44 - CONSULT TO [facility] ([facility] ONLY) Portions of this note have been entered by ancillary staff. I have reviewed and when necessary edited, so that they are an adequate record of my encounter with this patient Please note that parts of this document were created using voice recognition software and therefore may contain grammatical errors. Patient verbalizes understanding of instructions from today's visit and in agreement with treatmentplan. Questions answered. Agrees to call the office [...] as well as compliance with taking medications. Age- appropriate health preventative measures were discussed. Return if symptoms worsen or fail to improve, for Keep next scheduled appointment.. Zunilda Jaramillo APRN-NARENDRA documented in this encounterDayton Children'S Hospital10-25-2023 Progress note Author Sebas Lord [facility] July 11, 2023 4:32pm Note Date/Time July 11, 2023 4 :32pm [facility] [address] [place] [address] Progress Note - Wound Care 07/11/23 1627 MR#: [id number] Acct: [id number] Name: NANCI RODRIGUEZ Rep #:[id number] : 1980 42 From: Sebas Dhaliwal PM PCP: Dr. Rodri Chauhan MD Status:RE G RCR Location: History of Present Illness Date of Service: 07/11/23 Chief Complaint: Ulceration right posterior leg History of Wound: Ulceration right posterior leg Progress of Wound: Mrs. Rodriguez is a 42-year-old diabetic female sending to [facility] wound care center today for follow-up and evaluation of ulceration to the posterior aspect of the right leg. Patient was seen by an outside provider where she had gone through 3 rounds of oral antibiotics, Bactrim's and still has evidence of ulceration and redness to her right leg. She has tried to compress her leg but the dressing always falls down or is not tight enough. Patient is concerned that she still has an infection to the right leg. She also has a small laceration appreciated plantar aspect of her right foot. She does not wear diabetic shoes. She is wearing an older pair shoes is very easy to get on and off. Her left lower extremity is unremarkable at this time. She denies any newonset of trauma. She denies constitutional symptoms. No other complaints at this time. Subjective Subjective Ms. Rodriguez is a 42-year-old diabetic female presenting to the wound care center today at [facility] for follow-up evaluation of posterior ulceration to the right calf. Patient states her blood sugar has been controlled. She was wearing her wraps but took them down 1 day ago since they rolled down. She states she is still having pain to the posterior aspect of herright calf. She denies any trauma. Denies constitutional symptoms. No other pedal complaints at this time. Objective Data Objective Data Vital Signs: Vital Signs Temp Pulse Resp BP O2 Del Method 97.6 F L 108 H 18 146/80 H Simple Mask 07/11/23 14:43 07/11/23 14:43 06/27/23 14:50 07/11/23 14:43 07/11/23 14:43 Oxygen Delivery Method Simple Mask Weight: 160.223 kg Body Mass Index (BMI) 62.5 Physical Exam Narrative Neurovascular status unchanged. Evidence of full-thickness ulceration of the posterior calf measuring 1.1 x 1.7 x 0.1 cm. Wound base is fibrogranular in nature. Sanguinous drainage noted. No sign of infection. Erythema to the leg is blanchable without proximal streaking. Pain on palpation to full-thickness ulceration. No pain with calf compression. Debridement Note Debridement Note Post-Debridement Measurements and Additional Note: Post-Debridement Measurements/Treatment - Nurse 1 - General Ulcer Assessment Start: 06/20/23 14:52 Freq: Status: Active Protocol: WC.LOWEXT Activity Type Activity Date Activity User E-sign Co-sign Detail Recorded Client Recorded Date Recorded By Document 06/20/23 14:54 DL Desktop 06/20/23 15:13 DL Document 06/27/23 14:50 KW Desktop 06/27/23 15:01 KW Document 07/04/23 15:03 GM Desktop 07/04/23 15:08 GM Document 07/11/23 14:43 GM Desktop 07/11/23 14:49 GM 06/20/23 06/27/23 07/04/23 14:54 14:50 15:03 - Today's Visit Information Type of service Initial Visit Follow-up Visit Follow-up Visit (Physician/SENIOR TRAINER (Physician/SENIOR TRAINER ) ) Arrival Mode Ambulatory Ambulatory Ambulatory Transfer Assistance None None Patient Identification Verified (Name & Yes Yes Yes ) Patient Requires Transmission-Based No No Precautions Finger Stick Blood Sugar(mg/dl) (if 195 indicated): Blood Sugar Stated by Patient Height and Weight Height 5 ft 3 in Weight 160.223 kg Weight in Pounds 353.2 lbs Body Mass Index (BMI) 62.5 62.5 62.5 BMI Classification Obese Obese Obese BSA - [place] 2.46 Vital Signs Temperature (97.8 F-99.1 F) 96.9 F L 97.1 F L 95.9 F L Temperature Source Temporal Temporal Temporal Pulse Rate (60-100) 116 H 85 107 H Pulse Location Monitor Monitor Monitor Respiratory Rate (12-18) 22 H 18 Respiratory rate source Observation Observation Oxygen Delivery Method Room Air Room Air Blood Pressure (90/60-120/80) 154/87 H 158/103 H 173/88 H Blood Pressure Mean (mm Hg) 109 121 116 Source Monitor Monitor Monitor Position Supine Semi-Fowlers Semi-Fowlers Blood Pressure Location Left Forearm Right Arm History Since Last Visit- (Skip if this is Patient's initial visit) Have you changed medications since your No No last visit? Any new allergies or adverse reactions No No Had a fall/change in ADL's that may No No increase risk of falls Signs or symptoms of abuse and/or No No neglect since last visit Have you been in the hospital since your No No last visit? Has dressing in place as prescribed Yes Yes Has compression in place as prescribed Yes Yes Has offloadiing in place as prescribed No N/A Experienced any changes in pain level or No No management Left Footwear Regular Shoe Slipper Regular Shoe Right Footwear Regular Shoe Slipper Regular Shoe Pain Scale: 0-10 Numeric Is Patient Pain Free? Yes Yes Yes Lower Extremity Assessment/ Foot Assessment/ Toe Nail Assessment Left -Posterior Tibial Palpable Yes -Posterior Tibial Doppler Multiphasic -Dorsalis Pedis Palpable Yes -Dorsalis Pedis Doppler Multiphasic -Extremity Color Normal -Hair Growth on Legs No -Hair Growth on Toes No -Temperature of Extremity Warm -Capillary Refill Less than 3 Seconds -Dependent Rubor No -Blanched when Elevated No -Lipodermatosclerosis No -Other Deformity No -Prior Foot Ulcer No -Charcot Joint No -Prior Amputation No -Thick Yes -Discolored No -Deformed Yes -Improper Length & Hygeine No Right -Posterior Tibial Palpable Yes -Posterior Tibial Doppler Multiphasic -Dorsalis Pedis Palpable Yes -Dorsalis Pedis Doppler Multiphasic -Extremity Color Normal -Hair Growth on Legs No -Hair Growth on Toes No -Temperature of Extremity Warm -Capillary Refill Less than 3 Seconds -Dependent Rubor No -Blanched when Elevated No -Lipodermatosclerosis No -Other Deformity No -Prior Foot Ulcer No -Charcot Joint No -Prior Amputation No -Thick Yes -Discolored No -Deformed Yes -Improper Length & Hygeine No Neuropathy Assessment Feet - Top Side and Bottom <Entered> (a) Communication Assessment Preferred language Nepalese Able to Read Yes Able to Write Yes Right Hearing Abillity Normal Left Hearing Abillity Normal Visual Assistive Devices Glasses Teaching Assessment Preferences Verbal,Written Barriers to Learning None,Knowledge Deficit Readiness To Learn Good Willingness to Engage in Self Management Med Activies Readiness to Engage in Self Management Med Activities Anxiety Level Calm Cooperation Cooperative Perception Coherent Interest in Health Problem Asks Questions Education Importance Acknowledges Need Does Patient Smoke tobacco or other Yes substances Smoking Status Current every day smoker Is Patient Diabetic Yes Functional Assessment Recent Decline in Ability to Perform Denies Any Declines Assistive Device With Patient N/A Culture/Rastafarian/Camp Guard Cultural/Rastafarian Needs that may affect No Treatment Plan Would you allow our hospital rigging and controls aircraft mechanic to No meet you for the purpose of spiritual/ emotional support? Camp Guard to contact place of synagogue No Teaching: Wound Center Discharge Instructions -Person Taught Patient *Welcome to the Wound Center -Person Taught Patient 07/11/23 14:43 WC - Today's Visit Information Type of service Follow-up Visit (Physician/SENIOR TRAINER ) Arrival Mode Ambulatory Transfer Assistance None Patient Identification Verified (Name & Yes ) Patient Requires Transmission-Based No Precautions Finger Stick Blood Sugar(mg/dl) (if indicated): Blood Sugar Height and Weight Height Weight Weight in Pounds Body Mass Index (BMI) 62.5 BMI Classification Obese [facility] [place] Vital Signs Temperature (97.8 F-99.1 F) 97.6 F L Temperature Source Temporal Pulse Rate (60-100) 108 H Pulse Location Monitor Respiratory Rate (12-18) Respiratory rate source Oxygen Delivery Method Simple Mask Blood Pressure (90/60-120/80) 146/80 H Blood Pressure Mean (mm Hg) 102 Source Monitor Position Sitting Blood Pressure Location History Since Last Visit- (Skip if this is Patient's initial visit) Have you changed medications since your No last visit? Any new allergies or adverse reactions No Had a fall/change in ADL's that may No increase risk of falls Signs or symptoms of abuse and/or No neglect since last visit Have you been in the hospital since your No last visit? Has dressing in place as prescribed No Has compression in place as prescribed No Has offloadiing in place as prescribed No Experienced any changes in pain level or No management Left Footwear Slipper Right Footwear Slipper Pain Scale: 0-10 Numeric Is Patient Pain Free? Yes Lower Extremity Assessment/ Foot Assessment/ Toe Nail Assessment Left -Posterior Tibial Palpable -Posterior Tibial Doppler -Dorsalis Pedis Palpable -Dorsalis Pedis Doppler -Extremity Color -Hair Growth on Legs -Hair Growth on Toes -Temperature of Extremity -Capillary Refill -Dependent Rubor -Blanched when Elevated -Lipodermatosclerosis -Other Deformity -Prior Foot Ulcer -Charcot Joint -Prior Amputation -Thick -Discolored -Deformed -Improper Length & Hygeine Right -Posterior Tibial Palpable -Posterior Tibial Doppler -Dorsalis Pedis Palpable -Dorsalis Pedis Doppler -Extremity Color -Hair Growth on Legs -Hair Growth on Toes -Temperature of Extremity -Capillary Refill -Dependent Rubor -Blanched when Elevated -Lipodermatosclerosis -Other Deformity -Prior Foot Ulcer -Charcot Joint -Prior Amputation -Thick -Discolored -Deformed -Improper Length & Hygeine Neuropathy Assessment Feet - Top Side and Bottom Communication Assessment Preferred language Able to Read Able to Write Right Hearing Abillity Left Hearing Abillity Visual Assistive Devices Teaching Assessment Preferences Barriers to Learning Readiness To Learn Willingness to Engage in Self Management Activies Readiness to Engage in Self Management Activities Anxiety Level Cooperation Perception Interest in Health Problem Education Importance Does Patient Smoke tobacco or other substances Smoking Status Is Patient Diabetic Functional Assessment Recent Decline in Ability to Perform Assistive Device With Patient Culture/Rastafarian/Camp Guard Cultural/Rastafarian Needs that may affect Treatment Plan Would you allow our hospital rigging and controls aircraft mechanic to meet you for the purpose of spiritual/ emotional support? Camp Guard to contact place of synagogue Teaching: Wound Center Discharge Instructions -Person Taught *Welcome to the Wound Center -Person Taught (a) 1 - + WC - Nurse 1 - General Ulcer Measurement Start: 06/20/23 14:52 Freq: Status: Active Protocol: Activity Type Activity Date Activity User E-sign Co-sign Detail Recorded Client Recorded Date Recorded By Document 06/20/23 14:54 DL Desktop 06/20/23 15:13 DL Document 06/27/23 14:50 KW Desktop 06/27/23 15:01 KW Document 07/04/23 15:03 GM Desktop 07/04/23 15:08 GM Document 07/11/23 14:43 GM Desktop 07/11/23 14:49 GM 06/20/23 06/27/23 07/04/23 14:54 14:50 15:03 Wound Center Nurse 1 #1 R post LE -Combined with other wound No -Current Size (cm) - Length 1.5 1.5 1.5 -Current Size (cm) - Width 1 1.2 0.9 -Current Size (cm) - Depth 0.1 0.1 0.1 -Total Square Cm 1.5 1.80 1.35 -Photo Taken Yes -Epithelialization None Present -Tunneling No No -Undermining/Tunneling No No -Circular Undermining No -Exudate Amt Small Small -Exudate Type Serosanguineous Serosanguineous -Wound Margin Distinct, Distinct, Distinct, Outline Outline Outline Attached Attached Attached -Granulation Amt Small (1-33%) Medium (34-66%) Large (67-100%) -Granulation Quality [place] Red -Slough/Fibrin -Necrosis Amt Small (1-33%) Small (1-33%) -Necrotic Tissue Type Adherent Slough Adherent Slough -Structure Exposed N/A N/A -Texture (Rachele-wound Skin Appearance) Localized Edema Assessed, Assessed Localized Edema -Moisture (Rachele-wound Skin Appearance) No Abnormality Assessed Assessed -Color (Rachele-wound Skin Appearance) No Abnormality, Assessed, Assessed Erythema Erythema -Temperature (Rachele-wound Skin No Abnormality No Abnormality Appearance) (Pt Warm) (Pt Warm) -Tenderness on Palpation (Rachele-wound No Skin Appearance) -Ulcer Cleansing Soap and Water Rinsed/ Irrigated with Saline -Foul Odor after Cleansing No No -Anesthetic Used 5% Lidocaine 5% Lidocaine Gel Gel Lower Limb Edema Present Yes Right Calf (cm) 64 64.5 64 Right Ankle (cm) 34.5 23 31.4 Left Calf (cm) 58 52.9 Point of measurement (cm from the medial 29.3 instep) Left Ankle (cm) 33.4 07/11/23 14:43 Wound Center Nurse 1 #1 R post LE -Combined with other wound No -Current Size (cm) - Length 1.8 -Current Size (cm) - Width 0.9 -Current Size (cm) - Depth 0.1 -Total Square Cm 1.62 -Photo Taken No -Epithelialization None Present -Tunneling No -Undermining/Tunneling No -Circular Undermining No -Exudate Amt Small -Exudate Type Serous -Wound Margin Distinct, Outline Attached -Granulation Amt Large (67-100%) -Granulation Quality Red -Slough/Fibrin Yes -Necrosis Amt Small (1-33%) -Necrotic Tissue Type -Structure Exposed -Texture (Rachele-wound Skin Appearance) Assessed -Moisture (Rachele-wound Skin Appearance) Assessed -Color (Rachele-wound Skin Appearance) Assessed -Temperature (Rachele-wound Skin No Abnormality Appearance) (Pt Warm) -Tenderness on Palpation (Rachele-wound Skin Appearance) -Ulcer Cleansing Soap and Water -Foul Odor after Cleansing No -Anesthetic Used 5% Lidocaine Gel Lower Limb Edema Present Right Calf (cm) 61.2 Right Ankle (cm) 30 Left Calf (cm) 55.7 Point of measurement (cm from the medial instep) Left Ankle (cm) 30 WC - Nurse 2 - General Ulcer CM Notes Start: 06/20/23 14:52 Freq: Status: Active Protocol: Activity Type Activity Date Activity User E-sign Co-sign Detail Recorded Client Recorded Date Recorded By Document 06/20/23 15:28 [employer] Laptop 06/20/23 15:35 Document 06/27/23 15:41 [employer] Laptop 06/27/23 15:43 Document 07/04/23 15:42 [employer] Laptop 07/04/23 15:45 06/20/23 06/27/23 07/04/23 15:28 15:41 15:42 Wound Center Nurse 2 #1 R post LE -Time 15:30 15:42 15:42 -Correct Patient Yes Yes Yes -Correct Side, Site, Position Yes Yes Yes -Correct Procedure Yes Yes Yes -Procedure Performed Yes Yes Yes -Type of Procedure Debridement Debridement Debridement -Clinical Debridement Subcutaneous Subcutaneous Subcutaneous -Tissue Removed Subcutaneous Subcutaneous Subcutaneous -Post Debridement (cm) - Length 0.5 1.5 1.1 -Post Debridement (cm) - Width 0.5 0.7 1.7 -Post Debridement (cm) - Depth 0.1 0.1 0.1 -Total Square (Post) (cm) 0.25 1.05 1.87 -Area of Debridement (cm) - Length 0.5 1.5 1.1 -Area of Debridement (cm) - Width 0.5 0.7 1.7 -Total Square (Area) (cm) 0.25 1.05 1.87 -Tunneling No No No -Undermining/Tunneling No No No -Circular Undermining No No No -Wound/Ulcer Outcome Not Healed Not Healed Not Healed -Ulcer Cleansing Rinsed/ Rinsed/ Rinsed/ Irrigated with Irrigated with Irrigated with Saline Saline Saline -Foul Odor after Cleansing No No No -Bioengineered Tissue No No No -Bleeding Controlled with Pressure Pressure Pressure -Treatment Response Procedure Procedure Procedure Tolerated Well Tolerated Well Tolerated Well -Offloading No No No -Debridement - Subq, 1st 20sq cm Yes Yes Yes Pain Scale: 0-10 Numeric Is Patient Pain Free? Yes Yes Yes - Nurse 3 - General Ulcer D/C NN Start: 06/20/23 14:52 Freq: Status: Active Protocol: Activity Type Activity Date Activity User E-sign Co-sign Detail Recorded Client Recorded Date Recorded By Document 06/20/23 15:45 DL Desktop 06/20/23 15:46 DL Document 06/27/23 15:50 GM Desktop 06/27/23 15:59 GM Document 07/04/23 15:51 KW Desktop 07/04/23 15:55 KW Document 07/11/23 16:15 BMF Desktop 07/11/23 16:16 BMF 06/20/23 06/27/23 07/04/23 15:45 15:50 15:51 Wound Care Center Nurse 3 #1 R post LE -Ulcer Cleansing Rinsed/ Not Cleansed Irrigated with Saline -Foul Odor after Cleansing No No -Negative Pressure Wound Therapy N/A -Other Dressing bacitracin triple antibiotic -Primary Dressing Covered/Secured with Dry Gauze, Dry Gauze Dry Gauze & Secured with Roll Gauze, Tape Secured with Tape -Other Covering Left -Tubular Bandage Double Layer -Size of Tubigrip Used Size F -Size F ($) 2 -Other Right -Multi-Layered Wrap Application Multi-Layer Comp - Bilat ($ ) -Tubular Bandage Double Layer Double Layer -Size of Tubigrip Used Size F Size F -Size F ($) 2 2 Treatment Response Procedure Procedure Tolerated Well Tolerated Well Pain Scale: 0-10 Numeric Is Patient Pain Free? Yes Yes Yes - Visit Discharge Discharge Condition Stable Stable Stable Ambulatory Status Ambulatory Ambulatory Ambulatory Transportation Private Auto Private Auto Private Auto Medication Reconcilliation completed & No provided to patient/care provider Clinical Summary of Care Provided Yes 07/11/23 16:15 Wound Care Center Nurse 3 #1 R post LE -Ulcer Cleansing Rinsed/ Irrigated with Saline -Foul Odor after Cleansing No -Negative Pressure Wound Therapy -Other Dressing betadine moist gauze; per kw php architect -Primary Dressing Covered/Secured with -Other Covering abd Left -Tubular Bandage Double Layer -Size of Tubigrip Used Size F -Size F ($) 2 -Other sent an extra Right -Multi-Layered Wrap Application Multi-Layer Comp - Right ($ ) -Tubular Bandage -Size of Tubigrip Used -Size F ($) Treatment Response Pain Scale: 0-10 Numeric Is Patient Pain Free? Yes WC - Visit Discharge Discharge Condition Stable Ambulatory Status Ambulatory Transportation Private Auto Medication Reconcilliation completed & provided to patient/care provider Clinical Summary of Care Provided Assessment/Plan Assessment/Plan (1) Ulcer of right lower extremity with fat layer exposed: CODE(S): L97.912 - Non-pressure chronic ulcer of unspecified part of rightlower leg with fat layer exposed PLAN: Patient was examined evaluated. All findings were discussed with the patient. All questions were answered to the patient's satisfaction. Patient shows evidence of a chronic nonhealing ulceration to the posterior aspect of the right calf. Educated the patient on conservative versus surgical treatment. Educated the patient that we could perform a punch biopsy with advancement flap closure to heal her chronic wound. This will also give us the option to send this to the pathologist for diagnosis. Patient was understandinglike to move forward with the procedure. Chart review and verbal consent obtained. The right calf was injected with 4 ccof 1% lidocaine plain with epinephrine 1-100,000 without incident. After anesthesia was confirmed. The right calf was prepped and draped in normal aseptic manner. Using a 5 mm punch biopsy. The biopsy was taken from the full-thickness ulceration that was chronic in nature. This was removed passed the back table to be sent off for pathology for diagnosis. Using a #15 blade a longitudinal incision was made approximately 3 to 5 mm fashion, 90 degrees to the punch biopsy to allow for advancement closure. Using 2-0 Prolene and advancement flap was obtained to allow for closure of the punch biopsy site with2 simple interrupted suture. The right lower extremities were cleaned and patted dry. The area was dressed with Betadine soaked Adaptic, dry sterile dressing and a 3M compression bandage to be donned for 1 week until follow-up. Patient will be sent in a prophylactic dose/prescription of Bactrim DS for 2 weeks to be taken twice daily until gone. She is to take [id number] Motrin or Tylenol as needed for pain. She will follow-up in 1 week. (2) Type 2 diabetes mellitus with foot ulcer: CODE(S): E11.621 - Type 2 diabetes mellitus with foot ulcer; L97.509 - Non- pressure chronic ulcer of other part of unspecified foot with unspecified severity QUALIFIERS: Diabetes mellitus termination clerk insulin use: with mcfp use Qualified Code(s): E11.621 - Type 2 diabetes mellitus with foot ulcer;L97.509 - Non- pressure chronic ulcer of other part of unspecified foot with unspecified severity; Z79.4 - residential (current) use of insulin (3) Diabetes mellitus with diabetic polyneuropathy: CODE(S): E11.42 - Type 2 diabetes mellitus with diabetic polyneuropathy QUALIFIERS: Diabetes mellitus type: type 2 Diabetes mellitus shelter insulin use: with termination clerk use Qualified Code(s): E11.42 - Type 2 diabetes mellitus with diabetic polyneuropathy; Z79.4 - residential (current) use of insulin (4) Lymphedema: CODE(S): I89.0 - Lymphedema, not elsewhere classified (5) Morbidly obese: CODE(S): E66.01 - Morbid (severe) obesity due to excess calories 07/11/23 1632 <Electronically signed by Sebas Lord DPM> Cosigner Signature (if applicable): CC: ~ Signed [facility] Work Phone: [phone] 200-377310-18-2023 Progress note Author Sebas Lord [facility] July 04, 2023 4:54pm Note Date/Time July 04, 2023 4 :54pm [facility] [address] [place] [id number] Progress Note - Wound Care 07/04/23 1649 MR#: [id number] Acct: [id number] Name: NANCI RODRIGUEZ Rep #:[id number] : 1980 42 From: Sebas BEST PCP: Dr. Rodri Chauhan MD Status:RE G RCR Location: History of Present Illness Date of Service: 07/04/23 Chief Complaint: Ulceration right posterior leg History of Wound: Ulceration right posterior leg Progress of Wound: Mrs. Rodriguez is a 42-year-old diabetic female sending to [facility] wound [facility] center today for follow-up and evaluation of ulceration to the posterior aspect of the right leg. Patient was seen by an outside provider where she had gone through 3 rounds of oral antibiotics, Bactrim's and still has evidence of ulceration and redness to her right leg. She has tried to compress her leg but the dressing always falls down or is not tight enough. Patient is concerned that she still has an infection to the right leg. She also has a small laceration appreciated plantar aspect of her right foot. She does not wear diabetic shoes. She is wearing an older pair shoes is very easy to get on and off. Her left lower extremity is unremarkable at this time. She denies any newonset of trauma. She denies constitutional symptoms. No other complaints at this time. Subjective Subjective Ms. Rodriguez is a 42-year-old diabetic female presenting to the wound care center today at [facility] for follow-up evaluation of posterior ulceration to the right calf. Patient states her blood sugar has been controlled. She was wearing her wraps but took them down 1 day ago since they rolled down. She states she is still having pain to the posterior aspect of herright calf. She denies any trauma. Denies constitutional symptoms. No other pedal complaints at this time. Objective Data Objective Data Vital Signs: Vital Signs Temp Pulse Resp BP O2 Del Method 95.9 F L 107 H 18 173/88 H Room Air 07/04/23 15:03 07/04/23 15:03 06/27/23 14:50 07/04/23 15:03 07/04/23 15:03 Oxygen Delivery Method Room Air Weight: 160.223 kg Body Mass Index (BMI) 62.5 Physical Exam Narrative Neurovascular status unchanged. Evidence of full-thickness ulceration of the posterior calf measuring 1.1 x 1.7 x 0.1 cm. Wound base is fibrogranular in nature. Sanguinous drainage noted. No sign of infection. Erythema to the leg is blanchable without proximal streaking. Pain on palpation to full-thickness ulceration. No pain with calf compression. Excisional debridement down to and including subcutaneous tissue with number 5 mm dermal curette to the full-thickness ulceration to the posterior right calf. Predebridement measurements were 0.9 x 1.6 x 0.1 cm. Postdebridement measurement is 1.1 x 1.7 x 0.1 cm. Wound will be dressed with triple ointment antibiotic, dry sterile dressing and double layer Tubigrip. Debridement Note Debridement Note Debridement Free Text: Excisional debridement down to and including subcutaneoustissue with number 5 mm dermal curette to the full-thickness ulceration to the posterior right calf. Predebridement measurements were 0.9 x 1.6 x 0.1 cm. Postdebridement measurement is 1.1 x 1.7 x 0.1 cm. Wound will be dressed with triple ointment antibiotic, dry sterile dressing and double layer Tubigrip. Post-Debridement Measurements and Additional Note: Post-Debridement Measurements/Treatment - Nurse 1 - General Ulcer Assessment Start: 06/20/23 14:52 Freq: Status: Active Protocol: WATSON Activity Type Activity Date Activity User E-sign Co-sign Detail Recorded Client Recorded Date Recorded By Document 06/20/23 14:54 DL Desktop 06/20/23 15:13 DL Document 06/27/23 14:50 KW Desktop 06/27/23 15:01 KW Document 07/04/23 15:03 GM Desktop 07/04/23 15:08 GM 06/20/23 06/27/23 07/04/23 14:54 14:50 15:03 - Today's Visit Information Type of service Initial Visit Follow-up Visit Follow-up Visit (Physician/SENIOR TRAINER (Physician/SENIOR TRAINER ) ) Arrival Mode Ambulatory Ambulatory Ambulatory Transfer Assistance None None Patient Identification Verified (Name & Yes Yes Yes ) Patient Requires Transmission-Based No No Precautions Finger Stick Blood Sugar(mg/dl) (if 195 indicated): Blood Sugar Stated by Patient Height and Weight Height 5 ft 3 in Weight 160.223 kg Weight in Pounds 353.2 lbs Body Mass Index (BMI) 62.5 62.5 62.5 BMI Classification Obese Obese Obese [facility] - [place] 2.46 Vital Signs Temperature (97.8 F-99.1 F) 96.9 F L 97.1 F L 95.9 F L Temperature Source Temporal Temporal Temporal Pulse Rate (60-100) 116 H 85 107 H Pulse Location Monitor Monitor Monitor Respiratory Rate (12-18) 22 H 18 Respiratory rate source Observation Observation Oxygen Delivery Method Room Air Room Air Blood Pressure (90/60-120/80) 154/87 H 158/103 H 173/88 H Blood Pressure Mean (mm Hg) 109 121 116 Source Monitor Monitor Monitor Position Supine Semi-Fowlers Semi-Fowlers Blood Pressure Location Left Forearm Right Arm History Since Last Visit- (Skip if this is Patient's initial visit) Have you changed medications since your No No last visit? Any new allergies or adverse reactions No No Had a fall/change in ADL's that may No No increase risk of falls Signs or symptoms of abuse and/or No No neglect since last visit Have you been in the hospital since your No No last visit? Has dressing in place as prescribed Yes Yes Has compression in place as prescribed Yes Yes Has offloadiing in place as prescribed No N/A Experienced any changes in pain level or No No management Left Footwear Regular Shoe Slipper Regular Shoe Right Footwear Regular Shoe Slipper Regular Shoe Pain Scale: 0-10 Numeric Is Patient Pain Free? Yes Yes Yes Lower Extremity Assessment/ Foot Assessment/ Toe Nail Assessment Left -Posterior Tibial Palpable Yes -Posterior Tibial Doppler Multiphasic -Dorsalis Pedis Palpable Yes -Dorsalis Pedis Doppler Multiphasic -Extremity Color Normal -Hair Growth on Legs No -Hair Growth on Toes No -Temperature of Extremity Warm -Capillary Refill Less than 3 Seconds -Dependent Rubor No -Blanched when Elevated No -Lipodermatosclerosis No -Other Deformity No -Prior Foot Ulcer No -Charcot Joint No -Prior Amputation No -Thick Yes -Discolored No -Deformed Yes -Improper Length & Hygeine No Right -Posterior Tibial Palpable Yes -Posterior Tibial Doppler Multiphasic -Dorsalis Pedis Palpable Yes -Dorsalis Pedis Doppler Multiphasic -Extremity Color Normal -Hair Growth on Legs No -Hair Growth on Toes No -Temperature of Extremity Warm -Capillary Refill Less than 3 Seconds -Dependent Rubor No -Blanched when Elevated No -Lipodermatosclerosis No -Other Deformity No -Prior Foot Ulcer No -Charcot Joint No -Prior Amputation No -Thick Yes -Discolored No -Deformed Yes -Improper Length & Hygeine No Neuropathy Assessment Feet - Top Side and Bottom <Entered> (a) Communication Assessment Preferred language Nepalese Able to Read Yes Able to Write Yes Right Hearing Abillity Normal Left Hearing Abillity Normal Visual Assistive Devices Glasses Teaching Assessment Preferences Verbal,Written Barriers to Learning None,Knowledge Deficit Readiness To Learn Good Willingness to Engage in Self Management Med Activies Readiness to Engage in Self Management Med Activities Anxiety Level Calm Cooperation Cooperative Perception Coherent Interest in Health Problem Asks Questions Education Importance Acknowledges Need Does Patient Smoke tobacco or other Yes substances Smoking Status Current every day smoker Is Patient Diabetic Yes Functional Assessment Recent Decline in Ability to Perform Denies Any Declines Assistive Device With Patient N/A Culture/Rastafarian/Camp Guard Cultural/Rastafarian Needs that may affect No Treatment Plan Would you allow our hospital rigging and controls aircraft mechanic to No meet you for the purpose of spiritual/ emotional support? Camp Guard to contact place of synagogue No Teaching: Wound Center Discharge Instructions -Person Taught Patient *Welcome to the Wound Center -Person Taught Patient (a) 1 - + WC - Nurse 1 - General Ulcer Measurement Start: 06/20/23 14:52 Freq: Status: Active Protocol: Activity Type Activity Date Activity User E-sign Co-sign Detail Recorded Client Recorded Date Recorded By Document 06/20/23 14:54 DL Desktop 06/20/23 15:13 DL Document 06/27/23 14:50 KW Desktop 06/27/23 15:01 KW Document 07/04/23 15:03 GM Desktop 07/04/23 15:08 GM 06/20/23 06/27/23 07/04/23 14:54 14:50 15:03 Wound Center Nurse 1 #1 R post LE -Combined with other wound No -Current Size (cm) - Length 1.5 1.5 1.5 -Current Size (cm) - Width 1 1.2 0.9 -Current Size (cm) - Depth 0.1 0.1 0.1 -Total Square Cm 1.5 1.80 1.35 -Photo Taken Yes -Epithelialization None Present -Tunneling No No -Undermining/Tunneling No No -Circular Undermining No -Exudate Amt Small Small -Exudate Type Serosanguineous Serosanguineous -Wound Margin Distinct, Distinct, Distinct, Outline Outline Outline Attached Attached Attached -Granulation Amt Small (1-33%) Medium (34-66%) Large (67-100%) -Granulation Quality [place] Red -Necrosis Amt Small (1-33%) Small (1-33%) -Necrotic Tissue Type Adherent Slough Adherent Slough -Structure Exposed N/A N/A -Texture (Rachele-wound Skin Appearance) Localized Edema Assessed, Assessed Localized Edema -Moisture (Rachele-wound Skin Appearance) No Abnormality Assessed Assessed -Color (Rachele-wound Skin Appearance) No Abnormality, Assessed, Assessed Erythema Erythema -Temperature (Rachele-wound Skin No Abnormality No Abnormality Appearance) (Pt Warm) (Pt Warm) -Tenderness on Palpation (Rachele-wound No Skin Appearance) -Ulcer Cleansing Soap and Water Rinsed/ Irrigated with Saline -Foul Odor after Cleansing No No -Anesthetic Used 5% Lidocaine 5% Lidocaine Gel Gel Lower Limb Edema Present Yes Right Calf (cm) 64 64.5 64 Right Ankle (cm) 34.5 23 31.4 Left Calf (cm) 58 52.9 Point of measurement (cm from the medial 29.3 instep) Left Ankle (cm) 33.4 WC - Nurse 2 - General Ulcer CM Notes Start: 06/20/23 14:52 Freq: Status: Active Protocol: Activity Type Activity Date Activity User E-sign Co-sign Detail Recorded Client Recorded Date Recorded By Document 06/20/23 15:28 [employer] Laptop 06/20/23 15:35 Document 06/27/23 15:41 [employer] Laptop 06/27/23 15:43 Document 07/04/23 15:42 Laptop 07/04/23 15:45 06/20/23 06/27/23 07/04/23 15:28 15:41 15:42 Wound Center Nurse 2 #1 R post LE -Time 15:30 15:42 15:42 -Correct Patient Yes Yes Yes -Correct Side, Site, Position Yes Yes Yes -Correct Procedure Yes Yes Yes -Procedure Performed Yes Yes Yes -Type of Procedure Debridement Debridement Debridement -Clinical Debridement Subcutaneous Subcutaneous Subcutaneous -Tissue Removed Subcutaneous Subcutaneous Subcutaneous -Post Debridement (cm) - Length 0.5 1.5 1.1 -Post Debridement (cm) - Width 0.5 0.7 1.7 -Post Debridement (cm) - Depth 0.1 0.1 0.1 -Total Square (Post) (cm) 0.25 1.05 1.87 -Area of Debridement (cm) - Length 0.5 1.5 1.1 -Area of Debridement (cm) - Width 0.5 0.7 1.7 -Total Square (Area) (cm) 0.25 1.05 1.87 -Tunneling No No No -Undermining/Tunneling No No No -Circular Undermining No No No -Wound/Ulcer Outcome Not Healed Not Healed Not Healed -Ulcer Cleansing Rinsed/ Rinsed/ Rinsed/ Irrigated with Irrigated with Irrigated with Saline Saline Saline -Foul Odor after Cleansing No No No -Bioengineered Tissue No No No -Bleeding Controlled with Pressure Pressure Pressure -Treatment Response Procedure Procedure Procedure Tolerated Well Tolerated Well Tolerated Well -Offloading No No No -Debridement - Subq, 1st 20sq cm Yes Yes Yes Pain Scale: 0-10 Numeric Is Patient Pain Free? Yes Yes Yes - Nurse 3 - General Ulcer D/C NN Start: 06/20/23 14:52 Freq: Status: Active Protocol: Activity Type Activity Date Activity User E-sign Co-sign Detail Recorded Client Recorded Date Recorded By Document 06/20/23 15:45 DL Desktop 06/20/23 15:46 DL Document 06/27/23 15:50 GM Desktop 06/27/23 15:59 GM Document 07/04/23 15:51 KW Desktop 07/04/23 15:55 KW 06/20/23 06/27/23 07/04/23 15:45 15:50 15:51 Wound Care Center Nurse 3 #1 R post LE -Ulcer Cleansing Rinsed/ Not Cleansed Irrigated with Saline -Foul Odor after Cleansing No No -Negative Pressure Wound Therapy N/A -Other Dressing bacitracin triple antibiotic -Primary Dressing Covered/Secured with Dry Gauze, Dry Gauze Dry Gauze & Secured with Roll Gauze, Tape Secured with Tape Left -Tubular Bandage Double Layer -Size of Tubigrip Used Size F -Size F ($) 2 Right -Multi-Layered Wrap Application Multi-Layer Comp - Bilat ($ ) -Tubular Bandage Double Layer Double Layer -Size of Tubigrip Used Size F Size F -Size F ($) 2 2 Treatment Response Procedure Procedure Tolerated Well Tolerated Well Pain Scale: 0-10 Numeric Is Patient Pain Free? 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 All findings were discussed with the patient. All questions were answered to the patient satisfaction. Excisional debridement down to and including subcutaneous tissue with number 5 mm dermal curette to the full-thickness ulceration to the posterior right calf. Predebridement measurements were 0.9 x 1.6 x 0.1 cm. Postdebridement measurement is 1.1 x 1.7 x 0.1 cm. Wound will be dressed with triple ointment antibiotic, dry sterile dressing and double layer Tubigrip. A prescription for Santyl will be placed to the patient's pharmacy to apply nickel thick to the posterior calf followed by moist saline gauze and to tape inplace with dry sterile dressing. Patient is to change this daily. We will review radiographs of the right lower extremity when the patient returns in 1 week. (2) Diabetes mellitus with diabetic polyneuropathy: CODE(S): E11.42 - Type 2 diabetes mellitus with diabetic polyneuropathy QUALIFIERS: Diabetes mellitus type: type 2 Diabetes mellitus shelter insulin use: with [facility] use Qualified Code(s): E11.42 - Type 2 diabetes mellitus with diabetic polyneuropathy; Z79.4 - residential (current) use of insulin PLAN: At the time of today's visit the patient showed evidence of drinking sugary soda drink (caal Pepsi) which contain 70 g of sugar. Patient stressed that this was the first time she had had a soda in 1 month. She admits that herblood sugar when tested was 180 mg/dL. We are seeing and concern for noncompliance with strict glycemic control which was educated to the patient. (3) Lymphedema: CODE(S): I89.0 - Lymphedema, not elsewhere classified PLAN: Patient to continue to wear bilateral compression stockings. (4) Calciphylaxis: CODE(S): E83.59 - Other disorders of calcium metabolism PLAN: Right lower extremity tib-fib films were ordered today to rule out any calciphylaxis to the soft tissue that may be causing the patient to have a chronic nonhealing ulceration to the posterior right calf. 07/04/23 1654 <Electronically signed by Sebas Lord DPM> Cosigner Signature (if applicable): CC: ~ Signed [facility] Work Phone: 1([phone]) 180-571310-16-2023 Miscellaneous Notes* Telephone Encounter - Nuzhat Montes RN - 07/02/2023 8:10 AM EDT Date of last office: 06/01/2023 Date of next office visit: 07/09/2023 Requested Prescriptions Pending Prescriptions Disp Refills furosemide (LASIX) 20 mg tablet 60 tablet 1 Sig: Take 1-2 tablets by mouth once daily. Date of Last Labs: 03/06/2023 Please advise. Thank you. Nuzhat Montes RN. [facility] Miscellaneous Notes* Telephone Encounter - Nuzhat Montes RN - 06/29/2023 4:13 PM EDT Date of last office: 06/01/2023 Date of next office visit: 07/09/2023 Requested Prescriptions Pending Prescriptions Disp Refills blood sugar diagnostic (TRUE METRIX GLUCOSE TEST STRIP) test strip 50 Strip 11 Sig: Use as instructed Date of Last Labs: 03/06/2023 Please advise. Thank you. Nuzhat Montes RN. [facility]Day[facility] Progress note Author Sebas Lord [facility] June 27, 2023 5:23pm Note Date/Time June 27, 2023 5 :23pm [facility] [address] [place] [id number] Progress Note - Wound Care 06/27/23 1719 MR#: [id number] Acct: [id number] Name: NANCI RODRIGUEZ Rep #:[id number] : 1980 42 From: Sebas Dhaliwal PM PCP: Dr. Rodri Chauhan MD Status:RE G RCR Location: History of Present Illness Date of Service: 06/27/23 Chief Complaint: Ulceration right posterior leg History of Wound: Ulceration right posterior leg Progress of Wound: Mrs. Rodriguez is a 42-year-old diabetic female sending to [facility] today for follow-up and evaluation of ulceration to the posterior aspect of the right leg. Patient was seen by an outside provider where she had gone through 3 rounds of oral antibiotics, Bactrim's and still has evidence of ulceration and redness to her right leg. She has tried to compress her leg but the dressing always falls down or is not tight enough. Patient is concerned that she still has an infection to the right leg. She also has a small laceration appreciated plantar aspect of her right foot. She does not wear diabetic shoes. She is wearing an older pair shoes is very easy to get on and off. Her left lower extremity is unremarkable at this time. She denies any newonset of trauma. She denies constitutional symptoms. No other complaints at this time. Subjective Subjective Ms. Rodriguez is a 42-year-old diabetic female presenting for follow-up of full-thickness ulceration to the posterior aspect of the right calf. Patient has kept her compression dressing clean dry and intact. She is doing her own wound care. She admits her redness is improved after compression to the right leg. She denies any new onset of trauma. Denies constitutional symptoms. No other pedal complaints at this time. Objective Data Objective Data Vital Signs: Vital Signs Temp Pulse Resp BP O2 Del Method 97.1 F L 85 18 158/103 H Room Air 06/27/23 14:50 06/27/23 14:50 06/27/23 14:50 06/27/23 14:50 06/27/23 14:50 Oxygen Delivery Method Room Air Weight: 160.223 kg Body Mass Index (BMI) 62.5 Physical Exam Narrative Neurovascular status unchanged. Evidence of full-thickness ulceration of the posterior calf measuring 1.5 x 0.7 x 0.1 cm. Wound base is fibrogranular in nature. Sanguinous drainage noted. No sign of infection. Erythema to the leg is blanchable without proximal streaking. Pain on palpation to full-thickness ulceration. No pain with calf compression. Excisional debridement down to and including subcutaneous tissue with number 5 mm dermal curette to the full-thickness ulceration to the posterior right calf. Predebridement measurements were 1.4 x 0.6 x 0.1 cm. Postdebridement measurement is 1.5 x 0.7 x 0.1 cm. Wound will be dressed with triple ointment antibiotic, Adaptic, and bilateral 3M compression wraps. Debridement Note Debridement Note Debridement Free Text: Excisional debridement down to and including subcutaneoustissue with number 5 mm dermal curette to the full-thickness ulceration to the posterior right calf. Predebridement measurements were 1.4 x 0.6 x 0.1 cm. Postdebridement measurement is 1.5 x 0.7 x 0.1 cm. Wound will be dressed with triple ointment antibiotic, Adaptic, and bilateral 3M compression wraps. Post-Debridement Measurements and Additional Note: Post-Debridement Measurements/Treatment WC - Nurse 1 - General Ulcer Assessment Start: 06/20/23 14:52 Freq: Status: Active Protocol: [email or web address].SAY Activity Type Activity Date Activity User E-sign Co-sign Detail Recorded Client Recorded Date Recorded By Document 06/20/23 14:54 DL Desktop 06/20/23 15:13 DL Document 06/27/23 14:50 KW Desktop 06/27/23 15:01 KW 06/20/23 06/27/23 14:54 14:50 - Today's Visit Information Type of service Initial Visit Follow-up Visit (Physician/SENIOR TRAINER ) Arrival Mode Ambulatory Ambulatory Transfer Assistance None Patient Identification Verified (Name & Yes Yes ) Patient Requires Transmission-Based No Precautions Finger Stick Blood Sugar(mg/dl) (if 195 indicated): Blood Sugar Stated by Patient Height and Weight Height 5 ft 3 in Weight 160.223 kg Weight in Pounds 353.2 lbs Body Mass Index (BMI) 62.5 62.5 BMI Classification Obese Obese BSA - [place] 2.46 Vital Signs Temperature (97.8 F-99.1 F) 96.9 F L 97.1 F L Temperature Source Temporal Temporal Pulse Rate (60-100) 116 H 85 Pulse Location Monitor Monitor Respiratory Rate (12-18) 22 H 18 Respiratory rate source Observation Observation Oxygen Delivery Method Room Air Blood Pressure (90/60-120/80) 154/87 H 158/103 H Blood Pressure Mean (mm Hg) 109 121 Source Monitor Monitor Position Supine Semi-Fowlers Blood Pressure Location Left Forearm History Since Last Visit- (Skip if this is Patient's initial visit) Have you changed medications since your No last visit? Any new allergies or adverse reactions No Had a fall/change in ADL's that may No increase risk of falls Signs or symptoms of abuse and/or No neglect since last visit Have you been in the hospital since your No last visit? Has dressing in place as prescribed Yes Has compression in place as prescribed Yes Has offloadiing in place as prescribed No Experienced any changes in pain level or No management Left Footwear Regular Shoe Slipper Right Footwear Regular Shoe Slipper Pain Scale: 0-10 Numeric Is Patient Pain Free? Yes Yes Lower Extremity Assessment/ Foot Assessment/ Toe Nail Assessment Left -Posterior Tibial Palpable Yes -Posterior Tibial Doppler Multiphasic -Dorsalis Pedis Palpable Yes -Dorsalis Pedis Doppler Multiphasic -Extremity Color Normal -Hair Growth on Legs No -Hair Growth on Toes No -Temperature of Extremity Warm -Capillary Refill Less than 3 Seconds -Dependent Rubor No -Blanched when Elevated No -Lipodermatosclerosis No -Other Deformity No -Prior Foot Ulcer No -Charcot Joint No -Prior Amputation No -Thick Yes -Discolored No -Deformed Yes -Improper Length & Hygeine No Right -Posterior Tibial Palpable Yes -Posterior Tibial Doppler Multiphasic -Dorsalis Pedis Palpable Yes -Dorsalis Pedis Doppler Multiphasic -Extremity Color Normal -Hair Growth on Legs No -Hair Growth on Toes No -Temperature of Extremity Warm -Capillary Refill Less than 3 Seconds -Dependent Rubor No -Blanched when Elevated No -Lipodermatosclerosis No -Other Deformity No -Prior Foot Ulcer No -Charcot Joint No -Prior Amputation No -Thick Yes -Discolored No -Deformed Yes -Improper Length & Hygeine No Neuropathy Assessment Feet - Top Side and Bottom <Entered> (a) Communication Assessment Preferred language Nepalese Able to Read Yes Able to Write Yes Right Hearing Abillity Normal Left Hearing Abillity Normal Visual Assistive Devices Glasses Teaching Assessment Preferences Verbal,Written Barriers to Learning None,Knowledge Deficit Readiness To Learn Good Willingness to Engage in Self Management Med Activies Readiness to Engage in Self Management Med Activities Anxiety Level Calm Cooperation Cooperative Perception Coherent Interest in Health Problem Asks Questions Education Importance Acknowledges Need Does Patient Smoke tobacco or other Yes substances Smoking Status Current every day smoker Is Patient Diabetic Yes Functional Assessment Recent Decline in Ability to Perform Denies Any Declines Assistive Device With Patient N/A Culture/Rastafarian/Camp [employer] Cultural/Rastafarian Needs that may affect No Treatment Plan Would you allow our hospital rigging and controls aircraft mechanic to No meet you for the purpose of spiritual/ emotional support? Camp Guard to contact place of synagogue No Teaching: Wound Center Discharge Instructions -Person Taught Patient *Welcome to the Wound Center -Person Taught Patient (a) 1 - + WC - Nurse 1 - General Ulcer Measurement Start: 06/20/23 14:52 Freq: Status: Active Protocol: Activity Type Activity Date Activity User E-sign Co-sign Detail Recorded Client Recorded Date Recorded By Document 06/20/23 14:54 DL Desktop 06/20/23 15:13 DL Document 06/27/23 14:50 KW Desktop 06/27/23 15:01 KW 06/20/23 06/27/23 14:54 14:50 Wound Center Nurse 1 #1 R post LE -Current Size (cm) - Length 1.5 1.5 -Current Size (cm) - Width 1 1.2 -Current Size (cm) - Depth 0.1 0.1 -Total Square Cm 1.5 1.80 -Photo Taken Yes -Tunneling No -Undermining/Tunneling No -Exudate Amt Small Small -Exudate Type Serosanguineous Serosanguineous -Wound Margin Distinct, Distinct, Outline Outline Attached Attached -Granulation Amt Small (1-33%) Medium (34-66%) -Granulation Quality [place] -Necrosis Amt Small (1-33%) Small (1-33%) -Necrotic Tissue Type Adherent Slough Adherent Slough -Structure Exposed N/A -Texture (Rachele-wound Skin Appearance) Localized Edema Assessed, Localized Edema -Moisture (Rachele-wound Skin Appearance) No Abnormality Assessed -Color (Rachele-wound Skin Appearance) No Abnormality, Assessed, Erythema Erythema -Temperature (Rachele-wound Skin No Abnormality No Abnormality Appearance) (Pt Warm) (Pt Warm) -Tenderness on Palpation (Rachele-wound No Skin Appearance) -Ulcer Cleansing Soap and Water Rinsed/ Irrigated with Saline -Foul Odor after Cleansing No No -Anesthetic Used 5% Lidocaine 5% Lidocaine Gel Gel Right Calf (cm) 64 64.5 Right Ankle (cm) 34.5 23 Left Calf (cm) 58 Left Ankle (cm) 33.4 - Nurse 2 - General Ulcer CM Notes Start: 06/20/23 14:52 Freq: Status: Active Protocol: Activity Type Activity Date Activity User E-sign Co-sign Detail Recorded Client Recorded Date Recorded By Document 06/20/23 15:28 Laptop 06/20/23 15:35 Document 06/27/23 15:41 Laptop 06/27/23 15:43 06/20/23 06/27/23 15:28 15:41 Wound Center Nurse 2 #1 R post LE -Time 15:30 15:42 -Correct Patient Yes Yes -Correct Side, Site, Position Yes Yes -Correct Procedure Yes Yes -Procedure Performed Yes Yes -Type of Procedure Debridement Debridement -Clinical Debridement Subcutaneous Subcutaneous -Tissue Removed Subcutaneous Subcutaneous -Post Debridement (cm) - Length 0.5 1.5 -Post Debridement (cm) - Width 0.5 0.7 -Post Debridement (cm) - Depth 0.1 0.1 -Total Square (Post) (cm) 0.25 1.05 -Area of Debridement (cm) - Length 0.5 1.5 -Area of Debridement (cm) - Width 0.5 0.7 -Total Square (Area) (cm) 0.25 1.05 -Tunneling No No -Undermining/Tunneling No No -Circular Undermining No No -Wound/Ulcer Outcome Not Healed Not Healed -Ulcer Cleansing Rinsed/ Rinsed/ Irrigated with Irrigated with Saline Saline -Foul Odor after Cleansing No No -Bioengineered Tissue No No -Bleeding Controlled with Pressure Pressure -Treatment Response Procedure Procedure Tolerated Well Tolerated Well -Offloading No No -Debridement - Subq, 1st 20sq cm Yes Yes Pain Scale: 0-10 Numeric Is Patient Pain Free? Yes Yes - Nurse 3 - General Ulcer D/C NN Start: 06/20/23 14:52 Freq: Status: Active Protocol: Activity Type Activity Date Activity User E-sign Co-sign Detail Recorded Client Recorded Date Recorded By Document 06/20/23 15:45 DL Desktop 06/20/23 15:46 DL Document 06/27/23 15:50 GM Desktop 06/27/23 15:59 GM 06/20/23 06/27/23 15:45 15:50 Wound Care Center Nurse 3 #1 R post LE -Ulcer Cleansing Rinsed/ Not Cleansed Irrigated with Saline -Foul Odor after Cleansing No No -Negative Pressure Wound Therapy N/A -Other Dressing bacitracin triple antibiotic -Primary Dressing Covered/Secured with Dry Gauze, Dry Gauze Secured with Tape Right -Multi-Layered Wrap Application Multi-Layer Comp - Bilat ($ ) -Tubular Bandage Double Layer -Size of Tubigrip Used Size F -Size F ($) 2 Treatment Response Procedure Procedure Tolerated Well Tolerated Well Pain Scale: 0-10 Numeric Is Patient Pain Free? Yes Yes WC - Visit Discharge Discharge Condition Stable Stable Ambulatory Status Ambulatory Ambulatory Transportation Private Auto Private Auto Assessment/Plan Assessment/Plan (1) Ulcer of right lower extremity with fat layer exposed: CODE(S): L97.912 - Non-pressure chronic ulcer of unspecified part of rightlower leg with fat layer exposed PLAN: Patient was examined evaluated. All findings were discussed with the patient. All questions were answered to the patient's faction. Excisional debridement down to and including subcutaneous tissue with number 5 mm dermal curette to the full-thickness ulceration to the posterior right calf. Predebridement measurements were 1.4 x 0.6 x 0.1 cm. Postdebridement measurement is 1.5 x 0.7 x 0.1 cm. Wound will be dressed with triple ointment antibiotic, Adaptic, and bilateral 3M compression wraps. Reviewed the patient's arterial studies that show evidence of noncompressible vessels to the right lower extremity. This finding is believed to be from the patient body habitus with unsuccessful study secondary to inability for the vascular lab to get the cuffs around her right leg. Follow-up in 1 week (2) Diabetes mellitus with diabetic polyneuropathy: CODE(S): E11.42 - Type 2 diabetes mellitus with diabetic polyneuropathy QUALIFIERS: Diabetes mellitus type: type 2 Diabetes mellitus shelter insulin use: with termination clerk use Qualified Code(s): E11.42 - Type 2 diabetes mellitus with diabetic polyneuropathy; Z79.4 - residential (current) use of insulin (3) Lymphedema: CODE(S): I89.0 - Lymphedema, not elsewhere classified PLAN: Patient's bilateral lower extremity were wrapped in 3M compression wraps. The wrap to remain clean dry and intact for 1 week. (4) Morbidly obese: CODE(S): E66.01 - Morbid (severe) obesity due to excess calories PLAN: Patient will contact her primary care doctor for referral to bariatric surgeon for consultation. 06/27/23 1723 <Electronically signed by Sebas Lord DPM> Cosigner Signature (if applicable): CC: ~ Signed [facility] Work Phone: 1(462) 661-993410-04-2023 History and physical note Author Sebas Lord [facility] June 20, 2023 3:56pm Note Date/Time June 20, 2023 3: 56pm [facility] [address] [place] [address] H&P Exam - Wound Care 06/20/23 1550 MR#: [id number] Acct: [id number] Name: NANCI RODRIGUEZ Rep #:[id number] : 1980 42 From: Sebas Dhaliwal PM PCP: Dr. Rodri Chauhan MD Status:RE G RCR Location: History of Present Illness Date of Service: 06/20/23 Chief Complaint: Ulceration right posterior leg History of Wound: Ulceration right posterior leg Progress of Wound: Mrs. Rodriguez is a 42-year-old diabetic female sending to [facility] today for follow-up and evaluation of ulceration to the posterior aspect of the right leg. Patient was seen by an outside provider where she had gone through 3 rounds of oral antibiotics, Bactrim's and still has evidence of ulceration and redness to her right leg. She has tried to compress her leg but the dressing always falls down or is not tight enough. Patient is concerned that she still has an infection to the right leg. She also has a small laceration appreciated plantar aspect of her right foot. She does not wear diabetic shoes. She is wearing an older pair shoes is very easy to get on and off. Her left lower extremity is unremarkable at this time. She denies any new onset of trauma. She denies constitutional symptoms. No other complaints at this time. [facility] Medical History Anxiety Asthma Bipolar 1 disorder COPD (chronic obstructive pulmonary disease) Diabetes Obesity Sleep apnea Home Medications loratadine 10 mg tablet (Allergy Relief (loratadine)) 10 mg PO DAILY Allergies 07/07/13 [History Last Taken 11/07/19] lorazepam 1 mg tablet 1 mg PO BID PRN PRN Anxiety 12/11/13 [History Last Taken 06/26/19] albuterol sulfate 90 mcg/actuation aerosol inhaler (Ventolin HFA) 1 puff inhalation Q4H PRN PRN Shortness Of Breath 03/26/14 [History Last Taken 11/07/19] trazodone 100 mg tablet 300 mg PO QHS depression 01/12/15 [History Last Taken 11/07/19] montelukast 10 mg tablet 10 mg PO QHS 08/10/16 [History Last Taken 11/07/19] sumatriptan succinate 25 mg tablet (Imitrex) 25 mg PO .X1 PRN PRN Migraine Symptoms 08/10/16 [History Last Taken 06/30/19] aripiprazole 2 mg tablet 5 mg PO QHS 07/01/19 [History Last Taken 06/20/23] citalopram 40 mg tablet 40 mg PO DAILY 07/01/19 [History Last Taken 11/07/19] lamotrigine 200 mg tablet 200 mg PO BID 07/01/19 [History Last Taken 11/07/19] metformin 500 mg tablet 1,000 mg PO BID dm 07/01/19 [History Last Taken 11/07/19] naproxen 500 mg tablet 500 mg PO BID PRN PRN Pain Or Fever 07/01/19 [History Last Taken Unknown] topiramate 100 mg tablet 100 mg PO BID 07/01/19 [History Last Taken 11/07/19] glimepiride 2 mg tablet 4 mg PO DAILY 11/08/19 [History Last Taken 11/07/19] lansoprazole 30 mg capsule,delayed release 30 mg PO DAILY #30 CAPSULES 12/30/20 [Rx Last Taken Unknown] metformin 500 mg tablet 500 mg PO LUNCH 06/01/22 [History Last Taken Unknown] albuterol sulfate 90 mcg/actuation aerosol inhaler (Ventolin HFA) 2 puff inhalation Q4H PRN PRN Wheezing ##1 09/07/22 [Rx Last Taken Unknown] ferrous sulfate 325 mg (65 mg iron) tablet (FeroSul) 325 mg PO TID #90 tabs 09/07/22 [Rx Last Taken Unknown] furosemide 20 mg tablet 20 mg PO DAILY 09/07/22 [History Last Taken Unknown] potassium chloride 10 mEq capsule,extended release 10 meq PO DAILY 09/07/22 [History Last Taken Unknown] cyclobenzaprine 10 mg tablet 10 mg PO TID PRN Muscle Spasm #20 TABLETS 12/09/22 [Rx Last Taken Unknown] naproxen 500 mg tablet 500 mg PO BID #14 tabs 12/09/22 [Rx Last Taken Unknown] Allergy/AdvReac Type Severity Reaction Status Date / Time melatonin Allergy Hives Verified 06/20/23 15:17 Penicillins Allergy Hives Verified 06/20/23 15:17 Surgical History History of herniorrhaphy Social History household members: none Smoking Status: Current every day smoker tobacco type: cigarettes substance use type: does not use Vital Signs Vital Signs Vital Signs: 06/20/23 14:54 Temperature 96.9 F L Temperature Source Temporal Pulse Rate 116 H Respiratory Rate 22 H Blood Pressure 154/87 H Blood Pressure Mean 109 Blood Pressure Source Monitor Blood Pressure Position Supine Weight Weight: 160.223 kg Body Mass Index (BMI) 62.5 Physical Exam Narrative Vascular: DP and PT pulses are palpable. CFT is brisk. Skin temperature is warm to warm from proximal ankle to distal digit. Blanchable erythema appreciated to the right leg. Neurological: Light touch intact. Epic and station is intact. Protective sensation is slightly diminished. Dermatological: Blanchable erythema to the right leg. When elevated there showsan increase in the erythema which is identifiable with dependent rubor. Multiple full-thickness ulcerations and clusters to the posterior aspect of the right leg. Wound base is fibrogranular in nature with no drainage, malodor or sign of infection at this time. Excisional debridement down to including subcutaneous tissue with number 5 mm dermal curette to the posterior aspect of the right leg ulceration. Predebridement measurements were 0.3 x 0.3 x 0.1 cm. Postdebridement measurements are 0.5 x 0.5 x 0.1 cm. Musculoskeletal: Strength 5 and 5 in all quadrants bilateral. Mild to moderate palpatory tenderness appreciated to the full-thickness ulceration to the posterior aspect of the right leg. No pain on palpation to the small lacerationon the plantar aspect of the right foot. No pain with calf pression. Debridement Note Debridement Note Post-Debridement Measurements and Additional Note: Post-Debridement Measurements/Treatment WC - Nurse 1 - General Ulcer Assessment Start: 06/20/23 14:52 Freq: Status: Active Protocol: PANCHITO.LOWEXT Activity Type Activity Date Activity User E-sign Co-sign Detail Recorded Client Recorded Date Recorded By Document 06/20/23 14:54 DL Desktop 06/20/23 15:13 DL 06/20/23 14:54 - Today's Visit Information Type of service Initial Visit Arrival Mode Ambulatory Transfer Assistance None Patient Identification Verified (Name & Yes ) Patient Requires Transmission-Based No Precautions Finger Stick Blood Sugar(mg/dl) (if 195 indicated): Blood Sugar Stated by Patient Height and Weight Height 5 ft 3 in Weight 160.223 kg Weight in Pounds 353.2 lbs Body Mass Index (BMI) 62.5 BMI Classification Obese BSA - [place] 2.46 Vital Signs Temperature (97.8 F-99.1 F) 96.9 F L Temperature Source Temporal Pulse Rate (60-100) 116 H Pulse Location Monitor Respiratory Rate (12-18) 22 H Respiratory rate source Observation Blood Pressure (90/60-120/80) 154/87 H Blood Pressure Mean 109 Source Monitor Position Supine History Since Last Visit- (Skip if this is Patient's initial visit) Left Footwear Regular Shoe Right Footwear Regular Shoe Pain Scale: 0-10 Numeric Is Patient Pain Free? Yes Lower Extremity Assessment/ Foot Assessment/ Toe Nail Assessment Left -Posterior Tibial Palpable Yes -Posterior Tibial Doppler Multiphasic -Dorsalis Pedis Palpable Yes -Dorsalis Pedis Doppler Multiphasic -Extremity Color Normal -Hair Growth on Legs No -Hair Growth on Toes No -Temperature of Extremity Warm -Capillary Refill Less than 3 Seconds -Dependent Rubor No -Blanched when Elevated No -Lipodermatosclerosis No -Other Deformity No -Prior Foot Ulcer No -Charcot Joint No -Prior Amputation No -Thick Yes -Discolored No -Deformed Yes -Improper Length & Hygeine No Right -Posterior Tibial Palpable Yes -Posterior Tibial Doppler Multiphasic -Dorsalis Pedis Palpable Yes -Dorsalis Pedis Doppler Multiphasic -Extremity Color Normal -Hair Growth on Legs No -Hair Growth on Toes No -Temperature of Extremity Warm -Capillary Refill Less than 3 Seconds -Dependent Rubor No -Blanched when Elevated No -Lipodermatosclerosis No -Other Deformity No -Prior Foot Ulcer No -Charcot Joint No -Prior Amputation No -Thick Yes -Discolored No -Deformed Yes -Improper Length & Hygeine No Neuropathy Assessment Feet - Top Side and Bottom <Entered> (a) Communication Assessment Preferred language Nepalese Able to Read Yes Able to Write Yes Right Hearing Abillity Normal Left Hearing Abillity Normal Visual Assistive Devices Glasses Teaching Assessment Preferences Verbal,Written Barriers to Learning None,Knowledge Deficit Readiness To Learn Good Willingness to Engage in Self Management Med Activies Readiness to Engage in Self Management Med Activities Anxiety Level Calm Cooperation Cooperative Perception Coherent Interest in Health Problem Asks Questions Education Importance Acknowledges Need Does Patient Smoke tobacco or other Yes substances Smoking Status Current every day smoker Is Patient Diabetic Yes Functional Assessment Recent Decline in Ability to Perform Denies Any Declines Assistive Device With Patient N/A Culture/Rastafarian/Camp Guard Cultural/Rastafarian Needs that may affect No Treatment Plan Would you allow our hospital rigging and controls aircraft mechanic to No meet you for the purpose of spiritual/ emotional support? Camp Guard to contact place of synagogue No Teaching: Wound Center Discharge Instructions -Person Taught Patient *Welcome to the Wound Center -Person Taught Patient (a) 1 - + WC - Nurse 1 - General Ulcer Measurement Start: 06/20/23 14:52 Freq: Status: Active Protocol: Activity Type Activity Date Activity User E-sign Co-sign Detail Recorded Client Recorded Date Recorded By Document 06/20/23 14:54 DL Desktop 06/20/23 15:13 DL 06/20/23 14:54 Wound Center Nurse 1 #1 R post LE -Current Size (cm) - Length 1.5 -Current Size (cm) - Width 1 -Current Size (cm) - Depth 0.1 -Total Square Cm 1.5 -Photo Taken Yes -Tunneling No -Undermining/Tunneling No -Exudate Amt Small -Exudate Type Serosanguineous -Wound Margin Distinct, Outline Attached -Granulation Amt Small (1-33%) -Granulation Quality [place] -Necrosis Amt Small (1-33%) -Necrotic Tissue Type Adherent Slough -Structure Exposed N/A -Texture (Rachele-wound Skin Appearance) Localized Edema -Moisture (Rachele-wound Skin Appearance) No Abnormality -Color (Rachele-wound Skin Appearance) No Abnormality, Erythema -Temperature (Rachele-wound Skin No Abnormality Appearance) (Pt Warm) -Tenderness on Palpation (Rachele-wound No Skin Appearance) -Ulcer Cleansing Soap and Water -Foul Odor after Cleansing No -Anesthetic Used 5% Lidocaine Gel Right Calf (cm) 64 Right Ankle (cm) 34.5 Left Calf (cm) 58 Left Ankle (cm) 33.4 WC - Nurse 2 - General Ulcer CM Notes Start: 06/20/23 14:52 Freq: Status: Active Protocol: Activity Type Activity Date Activity User E-sign Co-sign Detail Recorded Client Recorded Date Recorded By Document 06/20/23 15:28 Laptop 06/20/23 15:35 06/20/23 15:28 Wound Center Nurse 2 #1 R post LE -Time 15:30 -Correct Patient Yes -Correct Side, Site, Position Yes -Correct Procedure Yes -Procedure Performed Yes -Type of Procedure Debridement -Clinical Debridement Subcutaneous -Tissue Removed Subcutaneous -Post Debridement (cm) - Length 0.5 -Post Debridement (cm) - Width 0.5 -Post Debridement (cm) - Depth 0.1 -Total Square (Post) (cm) 0.25 -Area of Debridement (cm) - Length 0.5 -Area of Debridement (cm) - Width 0.5 -Total Square (Area) (cm) 0.25 -Tunneling No -Undermining/Tunneling No -Circular Undermining No -Wound/Ulcer Outcome Not Healed -Ulcer Cleansing Rinsed/ Irrigated with Saline -Foul Odor after Cleansing No -Bioengineered Tissue No -Bleeding Controlled with Pressure -Treatment Response Procedure Tolerated Well -Offloading No -Debridement - Subq, 1st 20sq cm Yes Pain Scale: 0-10 Numeric Is Patient Pain Free? Yes WC - Nurse 3 - General Ulcer D/C NN Start: 06/20/23 14:52 Freq: Status: Active Protocol: Activity Type Activity Date Activity User E-sign Co-sign Detail Recorded Client Recorded Date Recorded By Document 06/20/23 15:45 DL Desktop 10/04/23 15:46 DL 06/20/23 15:45 Wound Care Center Nurse 3 #1 R post LE -Ulcer Cleansing Rinsed/ Irrigated with Saline -Foul Odor after Cleansing No -Other Dressing bacitracin -Primary Dressing Covered/Secured with Dry Gauze, Secured with Tape Right -Tubular Bandage Double Layer -Size of Tubigrip Used Size F -Size F ($) 2 Treatment Response Procedure Tolerated Well Pain Scale: 0-10 Numeric Is Patient Pain Free? Yes WC - Visit Discharge Discharge Condition Stable Ambulatory Status Ambulatory Transportation Private Auto Assessment/Plan Assessment/Plan (1) Ulcer of right lower extremity with fat layer exposed: CODE(S): L97.912 - Non-pressure chronic ulcer of unspecified part of rightlower leg with fat layer exposed PLAN: Patient was examined evaluated. All findings were discussed with the patient. All questions were answered to the patient's satisfaction. Excisional debridement down to including subcutaneous tissue with number 5 mm dermal curette to the posterior aspect of the right leg ulceration. Predebridement measurements were 0.3 x 0.3 x 0.1 cm. Postdebridement measurements are 0.5 x 0.5 x 0.1 cm. The patient's wound was dressed with triple ointment antibiotic and Band-Aid. A double layer Tubigrip size F was donned to the right lower extremity. The patient will follow-up in 1 week afterher PVRs and venous reflux studies. If the patient is still showing evidence oferythema the patient will be placed on a 2-week course of doxycycline. She leftthe office pleased with the visit. (2) Type 2 diabetes mellitus with foot ulcer: CODE(S): E11.621 - Type 2 diabetes mellitus with foot ulcer; L97.509 - Non- pressure chronic ulcer of other part of unspecified foot with unspecified severity QUALIFIERS: Diabetes mellitus termination clerk insulin use: with mcfp use Qualified Code(s): E11.621 - Type 2 diabetes mellitus with foot ulcer;L97.509 - Non- pressure chronic ulcer of other part of unspecified foot with unspecified severity; Z79.4 - termination clerk (current) use of insulin (3) Diabetes mellitus with diabetic polyneuropathy: CODE(S): E11.42 - Type 2 diabetes mellitus with diabetic polyneuropathy QUALIFIERS: Diabetes mellitus type: type 2 Diabetes mellitus shelter insulin use: with mcfp use Qualified Code(s): E11.42 - Type 2 diabetes mellitus with diabetic polyneuropathy; Z79.4 - residential (current) use of insulin (4) Lymphedema: CODE(S): I89.0 - Lymphedema, not elsewhere classified PLAN: In order for PVRs and venous reflux studies will be sent with the patient to get both studies prior to follow-up in 1 week. (5) Morbidly obese: CODE(S): E66.01 - Morbid (severe) obesity due to excess calories 06/20/23 1556 <Electronically signed by Sebas Lord DPM> Cosigner Signature (if applicable): CC: ~ Signed [facility] Work Phone: [phone] 128-131809-15-2023 Miscellaneous Notes* Telephone Encounter - Jessica Mason LPN - 06/01/2023 10:28 AM EDT Patient has been identified by name and [...] you. Jessica Mason LPN documented in this encounterDayton Children'S Hospital08-22-2023 Miscellaneous Notes* Telephone Encounter - Karishma Segundo LPN - 05/08/2023 1:24 PM EDT Rec'd denial. This is OTC and this class of medicine is excluded. Pharmacy notified. Message left to pt with info. * Telephone Encounter - Karishma Segundo LPN - 05/08/2023 11:11 AM EDT VICENTE RODRIGUEZ (Levi: [id number]) - [id number] [facility] Wound/Burn Dressing gel Status: Sent To Plan Created: May 05, 2023 [id number] Sent: May 08, 2023 Open Anton As Not Sent Archive documented in this encounterDayton Children'S Hospital08-18-2023 History of Present illness Narrative* Zunilda Jaramillo APRN.SENIOR TRAINER - 05/04/2023 2:48 PM EDT Images from the original note were not included. SUBJECTIVE Nanci Rodriguez is a 42 year old female here today for a check up on her medical problems. Chief Complaint Patient presents with: Recheck HPI Nanci Rodriguez is a 42 year old female established patient who presents today for a follow up on cellulitis. Issues with lesions to her abdomen and right lower leg. Saw Dr. Chauhan last week, started on Bactrim, applying medi-honey. She feels the areas are improving. Has been washing them daily.Redness better. Feeling better. She is a diabetic. [...] mouth daily with breakfast. Dose change, take onedaily albuterol HFA (VENTOLIN HFA) 90 mcg/actuation inhaler Inhale 2 Puffs as instructed every 4 hours asneeded. Albuterol Sulfate 1.25 mg/3 mL nebulizer solution [...] 02/28/2018 Comment: Abnormal stress / SPECT per [facility] notes. Normal coronaries on heart catheterization [facility] 02/26/2018 Dr. Brooks Morbid Obesity ([facility]) - 09/27/2016 Umbilical Hernia Without Obstruction Or Gangrene - 09/22/2016 Diabetes Mellitus Type 2, Controlled, Without Complications ([facility]) - 12/30/2015 Lumbar Spondylosis - 02/17/2013 Ddd (Degenerative Disc Disease), Lumbar - 02/17/2013 Chronic Radicular Low Back Pain - 07/17/2012 Papanicolaou Smear of Cervix With Low Grade Squamous Intraepithelial Lesion (Lgsil) - 12/26/2011 Moderate depressed bipolar I disorder (HCC) - 12/26/2011 Migraine Without Aura - 03/29/2006 [...] from today's visit and in agreement with treatmentplan. Questions answered. Agrees to call the office [...] as well as compliance with taking medications. Age- appropriate health preventative measures were discussed. Return in about 4 weeks (around 06/01/2023) for Follow up on chronic conditions and medications.. Zunilda Jaramillo APRN-NARENDRA documented in this encounterDayton Children'S Hospital08-15-2023 Miscellaneous Notes* Telephone Encounter - Davy Laguna MA - 05/01/2023 2:52 PM EDT Faxed as requested. Patient aware. Davy Laguna MA * Telephone Encounter - Vianney Elise RN - 05/01/2023 12:41 PM EDT Patient calls to verify that [employer]EP form was received. Notified patient the form was received and would be reviewed by provider when able. Patient requests this be done in a hurry as she needs her machine for a nap since she was up all night. Vianney Elise RN * Telephone Encounter - Karishma Segundo LPN - 05/01/2023 12:15 PM EDT Rec'd via fax. To pcp to review. * Telephone Encounter - Nuzhat Montes RN - 05/01/2023 11:36 AM EDT Patient calls and states that her electric was just shut off. Patient states that she had just talked to [employer] and was told that if provider fills out forms regarding patient being on CPAP then they would be able to turn electric back on. Patient calling and asking for fax number, fax number provided. Please watch for forms from [facility]. Nuzhat Montes RN documented in this encounterDayton Children'S Hospital08-11-2023 Instructions* Patient Instructions* Rodri Chauhan MD - 04/27/2023 6:25 PM EDT Take [...] daily--6 hours between doses. documented in this encounterDayton Children'S Hospital08-11-2023 History of Present illness Narrative* Rodri Chauhan MD - 04/27/2023 5:49 PM EDT This note was created using Meetmealsriter. Subjective Nanci Rodriguez is a 42 year old female. Patient presents with: Established Patient SUBJECTIVE: Nanci Rodriguez is a 42 year old year old [...] mouth daily with breakfast. Dose change, take onedaily albuterol HFA (VENTOLIN HFA) 90 mcg/actuation inhaler Inhale 2 Puffs as instructed every 4 hours asneeded. Albuterol Sulfate 1.25 mg/3 mL nebulizer solution [...] 1 tab po BID for 2 days then1/2 tab po BID for 2 days then 1/2 tab daily for 2 days then stop (Patient not taking: Reported on 04/27/2023) ARIPiprazole (ABILIFY) 2 mg tablet Take 1 tablet by mouth once daily. (Patient not taking: Reportedon 04/27/2023) No current facility-administered medications for this [...] Lymph 1.00 - 4.00 k/uL 1.63 1.00 [place]% % 6.7 5.9 Abs [place] <0.87 k/uL 0.38 0.23 [place]% % 1.9 [...] with serious comorbidity and body mass index (BMI)of 60.0 to 69.9 in adult (HCC) E66.01 Z68.44 8. Encounter for long-term current [...] weight loss as well as prevention of DM,and control of BP and lipids. Patient states uses CPAP. Noted issues with electric company and needed form completed to get electricity turned back on. Form completed 05/01/23 to fax back. Work on fluid retention. Further evaluation and treatment as indicated. I spent a total of 41 minutes on the date of the service which included [id number] patient care, completing clinical documentation, performing a medically appropriate examination, counseling and educating the patient/family/caregiver, ordering medications, tests, or procedures, independently interpreting results (not separately reported), and communicating results to the patient/family/caregiver. Rodri Chauhan MD documented in this encounterDayton Children'S Hospital08-07-2023 Miscellaneous Notes* Telephone Encounter - Jessica Helm RN - 04/23/2023 3:23 PM EDT Patient has been identified by name and [...] you. Jessica Helm RN documented in this encounterDayton Children'S Hospital06-20-2023 History of Present illness Narrative* Johnson Rm, MRI CT TECH.SENIOR SHAREPOINT ARCHITECT - 03/06/2023 2:12 PM EDT SUBJECTIVE: HEPATITIS B(1 of 3 - 3-dose series) Never done COVID-19 VACCINE(1) Never done PNEUMOCOCCAL(2 - PCV) due on 01/27/2017 DILATED RETINAL EXAM due on 12/02/2020 DIABETIC FOOT EXAM due on 03/16/2021 MAMMOGRAM Never done URINE ALBUMIN:CREATININE RATIO due on 01/03/2022 DEPRESSION ASSESSMENT due on 09/17/2022 HBA1C due on 03/01/2023 HPI Nanci Rodriguez is a 42 year old female. PMH [...] 1 tab po BID for 2 days then1/2 tab po BID for 2 days then [...] mouth daily with breakfast. Dose change, take onedaily albuterol HFA (VENTOLIN HFA) 90 mcg/actuation inhaler Inhale 2 Puffs as instructed every 4 hours asneeded. Albuterol Sulfate 1.25 mg/3 mL nebulizer solution [...] Level: 4 - Moderate documented in this encounterDayton Children'S Hospital06-08-2023 History of Present illness Narrative* Angelina Chavez RDMS - 02/22/2023 1:45 PM EDT Radiology Service Progress Note PATIENT NAME: Nanci Rodriguez DATE OF SERVICE: February 22, 2023 TIME: 2:35 PM PATIENT IDENTITY VERIFICATION COMPLETED USING TWO (2) IDENTIFIERS: Name and Date of confirmedby patient verbally. FALL SCREENING: Has the patient had 2 falls in the last year or 1 fall with injury or currently using an Ambulatory Assistive Device (Walker, Cane, Wheelchair, Crutches, etc.)? Yes, Patient High Riskfor Falls What interventions were put in place to prevent falls during this visit? Offered Assistance with Transfers/Clothing and Increased Observations by Caregivers PATIENT GENDER DATA: Female. status: : No status: NO. PATIENT RELEVANT IMPLANT DATA REVIEWED: Not Applicable RADIOLOGY DEPARTMENT: Ultrasound PERIPHERAL IV DATA: Not applicable SIGNED BY: Angelina Chavez RDMS February 22, 2023 2:35 PM documented in this encounterDayton Children'S Hospital06-05-2023 History of Present illness Narrative* Zunilda Jaramillo APRN.SENIOR TRAINER - 02/19/2023 3:41 PM EDT SUBJECTIVE Nanci Rodriguez is a 42 year old female here today for acute concerns. Chief Complaint Patient presents with: Edema: was seen in ER and told has cellulitis but never treated her. Has areas on abdomen and lowerlegs Back Pain: lower back pain that radiates down into left leg for about 2 days HPI Nanci Rodriguez is a 42 year old female established patient. Presents today for concerns of a cellulitis to her abdomen and right leg. Started with the abdomen. Was seen in ER in November for this. This is her first issues with cellulitis but it has been on going for several months. She is a diabeticbut does not inject insulin. Abdomen has an [...] mouth daily with breakfast. Dose change, take onedaily albuterol HFA (VENTOLIN HFA) 90 mcg/actuation inhaler Inhale 2 Puffs as instructed every 4 hours asneeded. Albuterol Sulfate 1.25 mg/3 mL nebulizer solution [...] 1 tab po BID for 2 days then1/2 tab po BID for 2 days then [...] 02/28/2018 Comment: Abnormal stress / SPECT per [facility] notes. Normal coronaries on heart catheterization [facility] 02/26/2018 Dr. Brooks Morbid Obesity ([facility]) - 09/27/2016 Umbilical Hernia Without Obstruction Or Gangrene - 09/22/2016 Diabetes Mellitus Type 2, Controlled, Without Complications ([facility]) - 12/30/2015 Lumbar Spondylosis - 02/17/2013 Ddd (Degenerative Disc Disease), Lumbar - 02/17/2013 Chronic Radicular Low Back Pain - 07/17/2012 Papanicolaou Smear of Cervix With Low Grade Squamous Intraepithelial Lesion (Lgsil) - 12/26/2011 Moderate depressed bipolar I disorder ([facility]) - 12/26/2011 Migraine Without Aura - [...] from today's visit and in agreement with treatmentplan. Questions answered. Agrees to call the office if questions, concerns of issues with acute symptoms not improving or if they worsen. Return in about 4 weeks (around 03/19/2023) for recheck. OLLIE Christopher documented in this encounterDayton Children'S Hospital05-31-2023 Miscellaneous Notes* Telephone Encounter - Iva Westfall - 02/14/2023 11:55 AM EDT Spoke with patient and for transportation reasons she would like to see a provider in [place]. I provided patient with phone number to schedule for Dr. Se Kinney. * Telephone Encounter - Anahi Degroot - 02/07/2023 11:34 AM EDT Lm for pt to call back to schedule. Anahi Degroot * Telephone Encounter - Zunilda Jaramillo APRN.CNP - 02/07/2023 8:08 AM EDT Consult orders placed, please assist with scheduling. Thanks! * Telephone Encounter - Olivia Trevizo - 02/06/2023 1:34 PM EDT PT would also like consult placed for pain management due to her knee problems. Olivia RODRIGUES * Telephone Encounter - Olivia Trevizo - 02/06/2023 1:32 PM EDT PT calling stating she is having pain in the bottom of feet when she walks, asking referral to podiatry. Olivia RODRIGUES documented in this encounterDayton Children'S Hospital05-30-2023 History of Present illness Narrative* Ella Fournier - 02/13/2023 11:57 AM EDT POPULATION HEALTH NAVIGATION OUTREACH Action/ 2nd call, pt will call back to schedule Patient Identified by Name and : YES, via phone Outreach Outcome/Action Spoke to patient / parent / legal guardian: Patient will return the call or ask for return call Did you use a PCP flex slot to schedule this appointment? No Reason for Outreach Care Gap or Scheduling/Wellness visits Payer: [facility]or: [facility] / Plan: [facility] MEDICAID / Product Type: Medicaid / Care [...] 13, 2023 11:58 AM documented in this encounterDayton Children'S Hospital05-30-2023 History of Present illness Narrative* Terri Onofre - 02/13/2023 9:57 AM EDT POPULATION HEALTH NAVIGATION OUTREACH Action/I [place] Support: Called pt to schedule an appt in Pain Management. Lvm for pt to call [phone] for scheduling. Patient Identified by Name and : NO Outreach Outcome/Action Unable to reach patient: Left message Did you use a PCP flex slot to schedule this appointment? No Reason for Outreach Care Gap or Scheduling/Wellness visits Payer: Payor: [facility] MEDICAID / Plan: [facility] MEDICAID / Product Type: Medicaid / Care [...] 13, 2023 9:57 AM documented in this encounterDayton Children'S Hospital05-05-2023 Miscellaneous Notes* Telephone Encounter - Ashley Jarrett RN - 01/19/2023 8:47 AM EDT Patient has been identified by name and date of : Yes, Provider Dr Chauhan Date 01/19/23 Time 0848. Pharmacy phones for [...] you. Ashley Jarrett RN documented in this encounterDayton Children'S Hospital04-17-2023 Miscellaneous Notes* Telephone Encounter - Nilda Laughlin Pss - 01/01/2023 11:11 AM EDT Pharmacy verified in [facility] Patient has been identified by name and [...] advise. Nilda Laughlin Pss documented in this encounterDayton Children'S Hospital04-17-2023 Miscellaneous Notes* Telephone Encounter - Nilda Laughlin Pss - 01/01/2023 11:10 AM EDT Pharmacy verified in Epic Patient has been [...] advise. Nilda Laughlin Pss documented in this encounterDayton Children'S Hospital03-25-[address] Bundy [facility] December 09, 2022 3:12pm Note Date/Time December 09, 2022 1:4 4pm [facility] Medical Records Department [address] [place] [id number] Emergency Department Summary 12/09/22 MR#: [id number] Acct: [id number] Name: NANCI RODRIGUEZ Rep #:[id number] : 1980 42 From: Arcadio Bundy MD PCP: Dr. Rodri Chauhan MD Status:RE G ER Location: ED HPI History of Present Illness Chief Complaint: Back Informant: patient Narrative Narrative: Gradual onset of left low back pain that started yesterday, worse today significantly worse with moving, but the patient presents saying that she thinksit is her kidney and although she has had no urinary symptoms she states she hasbeen treating the pain at home with cranberry juice. She has had some nausea, no fevers, no abdominal pain or trouble urinating. Has a history of kidney stones and thinks that it hurts to a significant degree and in similar location. Cannot remember any injury to her back, she states she does a lot when she is cleaning her house but cannot remember any excessive heavy lifting or slips or falls the day of or the day before. No numbness or tingling or radiation of thediscomfort down to her lower extremities, no bowel or bladder dysfunction. [facility] Medical History Anxiety Asthma Bipolar 1 disorder COPD (chronic obstructive pulmonary disease) Diabetes Obesity Sleep apnea Home Medications loratadine 10 mg tablet (Allergy Relief (loratadine)) 10 mg PO DAILY Allergies 07/07/13 [History Last Taken 11/07/19] lorazepam 1 mg tablet 1 mg PO BID PRN PRN Anxiety 12/11/13 [History Last Taken 06/26/19] albuterol sulfate 90 mcg/actuation aerosol inhaler (Ventolin HFA) 1 puff inhalation Q4H PRN PRN Shortness Of Breath 03/26/14 [History Last Taken 11/07/19] trazodone 100 mg tablet 300 mg PO QHS depression 01/12/15 [History Last Taken 11/07/19] montelukast 10 mg tablet 10 mg PO QHS 08/10/16 [History Last Taken 11/07/19] sumatriptan succinate 25 mg tablet (Imitrex) 25 mg PO .X1 PRN PRN Migraine Symptoms 08/10/16 [History Last Taken 06/30/19] aripiprazole 2 mg tablet 5 mg PO QHS 07/01/19 [History Last Taken 11/07/19] citalopram 40 mg tablet 40 mg PO DAILY 07/01/19 [History Last Taken 11/07/19] lamotrigine 200 mg tablet 200 mg PO BID 07/01/19 [History Last Taken 11/07/19] metformin 500 mg tablet 1,000 mg PO BID dm 07/01/19 [History Last Taken 11/07/19] naproxen 500 mg tablet 500 mg PO BID PRN PRN Pain Or Fever 07/01/19 [History Last Taken Unknown] topiramate 100 mg tablet 100 mg PO BID 07/01/19 [History Last Taken 11/07/19] glimepiride 2 mg tablet 4 mg PO DAILY 11/08/19 [History Last Taken 02/21/20] lansoprazole 30 mg capsule,delayed release 30 mg PO DAILY #30 CAPSULES 12/30/20 [Rx Last Taken Unknown] metformin 500 mg tablet 500 mg PO LUNCH 06/01/22 [History Last Taken Unknown] acetaminophen 300 mg-codeine 30 mg tablet 1 tab PO Q6H PRN PRN Pain 09/07/22 [History Last Taken Unknown] albuterol sulfate 90 mcg/actuation aerosol inhaler (Ventolin HFA) 2 puff inhalation Q4H PRN PRN Wheezing ##1 09/07/22 [Rx Last Taken Unknown] ferrous sulfate 325 mg (65 mg iron) tablet (FeroSul) 325 mg PO TID #90 tabs 09/07/22 [Rx Last Taken Unknown] furosemide 20 mg tablet 20 mg PO DAILY 09/07/22 [History Last Taken Unknown] potassium chloride 10 mEq capsule,extended release 10 meq PO DAILY 09/07/22 [History Last Taken Unknown] prednisone 20 mg tablet 60 mg PO DAILY #15 tabs 09/07/22 [Rx Last Taken Unknown] cyclobenzaprine 10 mg tablet 10 mg PO TID PRN Muscle Spasm #20 TABLETS 12/09/22 [Rx Last Taken Unknown] naproxen 500 mg tablet 500 mg PO BID #14 tabs 12/09/22 [Rx Last Taken Unknown] Allergy/AdvReac Type Severity Reaction Status Date / Time melatonin Allergy Hives Verified 12/09/22 13:18 Penicillins Allergy Hives Verified 12/09/22 13:18 Surgical History History of herniorrhaphy Social History household members: none Smoking Status: Current every day smoker tobacco type: cigarettes substance use type: does not use ROS ROS ED Constitutional Constitutional ED: Denies chills or fever(s) Gastrointestinal Gastrointestinal: Denies abdominal pain, constipation, fecal incontinence, nausea or vomiting Genitourinary Genitourinary ED: Reports other Details: no urinary retention ; Denies abdominal discomfort or urinary incontinence Musculoskeletal Musculoskeletal: Reports as per HPI and back pain; Denies neck pain Integumentary Denies rash or wounds Neurologic Neurologic: Denies headache(s), paresthesias or weakness EXAM Physical Exam Const Vital Signs: 03/25/23 13:16 Temperature 96.7 F L Temperature Source Temporal Pulse Rate 96 Respiratory Rate 18 Blood Pressure 147/68 H Blood Pressure Mean 94 Pulse Ox 100 Oxygen Delivery Method Room Air Positive well nourished and well developed Constitutional Narrative: Morbidly obese, which limits the exam General Appearance ED: well developed and NAD HEENT Negative for trauma or tenderness Eyes PERRL and EOMs intact bilaterally Neck full ROM and supple GI normal to inspection, nondistended, normoactive bowel sounds, soft to palpation and non-tender Back/Spine normal to inspection General Back: Negative for CVA tenderness Lumbar Spine / Lower Back: ROM limited, paraspinal muscle tenderness left L1 andstraight leg raise negative bilaterally; Negative for lumbar spinal tenderness Extremity normal to inspection, full ROM and no pedal edema Neuro oriented x3 and no sensory deficits noted Sensorium / Orientation: alert Motor Exam: strength 5/5 throughout and clonus absent Deep Tendon Reflexes: Rt Patellar (L4): 2+, Lt Patellar (L4): 2+, Rt Ankle (S1):2+ and Lt Ankle (S1): 2+ Deep Tendon Reflexes Back: Rt Patellar (L4): 2+, Lt Patellar (L4): 2+, Rt Ankle (S1): 2+ and Lt Ankle (S1): 2+ Plantar Reflex: Downgoing: bilateral Psych thought process normal Psych Narrative: Anxious Skin no rashes or lesions noted and no wounds MDM MDM MDM Narrative Medical decision making narrative: Based on history and exam this seems musculoskeletal in etiology, not renal. I was happy to check a urinalysis for this patient anyway given her history of stones. Urine is unremarkable showing no signs of infection or blood. I did a in case we have to scan her, the was negative. On reevaluation she is feeling much better after being treated with an oral [place] and IM Toradol and Norflex. Her history and exam are consistent with musculoskeletal back pain, therefore although we considered other testing I do not think any of it is indicated right now, such as a CT of the flank. Given all this I am comfortable discharging her home she is okay with that as well, will prescribe her some muscle relaxers and NSAIDs as well. Lab Data Attestation: I reviewed the patient's lab results. Labs: Laboratory Results - last 24 hr 12/09/22 14:03 Urine Color Yellow Urine Clarity Sl. Cloudy Urine pH 7.0 Ur Specific Warner 1.010 Urine Protein 15 H Urine Glucose (UA) 250 H Urine Ketones Negative Urine Occult Blood Negative Urine Nitrite Negative Urine Bilirubin Negative Urine Urobilinogen 1 H Ur Leukocyte Esterase Negative Urine RBC 0 SEEN Urine WBC 0 SEEN Ur Squamous Epith Cells 0-5 SEEN Amorphous Sediment 2+ Urine Bacteria 0 SEEN Urine Mucus 0 SEEN Urine Test Negative Discharge Plan Triage Chief Complaint: Back ED Provider: Arcadio Bundy Dx/Rx/DC Orders Clinical Impression: Acute lumbar myofascial strain Instructions: ED Back Sprain/Strain Prescriptions: New cyclobenzaprine [cyclobenzaprine] 10 mg tablet 10 mg PO TID PRN (Reason: Muscle Spasm) Qty: 20 0RF naproxen 500 mg tablet 500 mg PO BID Qty: 14 0RF No Action loratadine [Allergy Relief (loratadine)] 10 MG tablet 10 mg PO DAILY lorazepam 1 MG tablet 1 mg PO BID PRN PRN (Reason: Anxiety) albuterol sulfate [Ventolin HFA] 1 INHALER inhaler 1 puff inhalation Q4H PRN PRN (Reason: Shortness Of Breath) trazodone 100 MG tablet 300 mg PO QHS sumatriptan succinate [Imitrex] 25 MG tablet 25 mg PO .X1 PRN PRN (Reason: Migraine Symptoms) montelukast 10 MG tablet 10 mg PO QHS metformin 500 MG tablet 1,000 mg PO BID Label Comments: TAKE 2 TABLETS TWICE DAILY WITH meals lamotrigine 200 mg tablet 200 mg PO BID Label Comments: 1 tablet twice a day citalopram 40 tablet 40 mg PO DAILY topiramate 100 MG tablet 100 mg PO BID Label Comments: TAKE 1 TABLET TWICE DAILY naproxen 500 MG tablet 500 mg PO BID PRN PRN (Reason: Pain Or Fever) Label Comments: TAKE 1 TABLET TWICE DAILY WITH FOOD NEEDED FOR PAIN /inflammation aripiprazole 2 mg tablet 5 mg PO QHS Label Comments: Take 1 tablet by mouth once a day glimepiride 2 MG tablet 4 mg PO DAILY lansoprazole 30 MG capsule 30 mg PO DAILY Qty: 30 0RF metformin 500 mg Tablet 500 mg PO LUNCH potassium chloride 10 mEq capsule, extended release 10 meq PO DAILY Label Comments: TAKE ONE CAPSULE BY MOUTH EVERY DAY furosemide 20 mg tablet 20 mg PO DAILY Rx Instructions: x7 days, currently on day 5 acetaminophen-codeine 300-30 mg tablet 1 tab PO Q6H PRN PRN (Reason: Pain) ferrous sulfate [FeroSul] 325 mg (65 mg iron) tablet 325 mg PO TID Qty: 90 0RF Rx Instructions: May start once a day for a week, twice a day for a week, and then start 3 times daily. prednisone 20 mg tablet 60 mg PO DAILY Qty: 15 0RF albuterol sulfate [Ventolin HFA] 90 mcg/actuation HFA aerosol inhaler 2 puff inhalation Q4H PRN MDD Dispense with spacer if availa PRN (Reason: Wheezing) Qty: 1 0RF Primary Care Provider: Rodri Chauhan Referrals: Rodri Chauhan MD [Primary Care Provider] - 3-5 Days if not improving Disposition Disposition: Home, Self Care What to do if you have Problems For any increased pain, shortness of breath, bleeding, nausea or vomiting, chestpain, or any unexpected problems, contact your Primary Care Provider. Call [facility] ([phone]) or report to the closest Emergency Room. Call 911 if necessary. 12/09/22 1512 <Electronically signed by Arcadio Bundy MD> Cosigner Signature (if applicable): CC: Dr. Rodri Chauhan MD ~ Signed [facility] Work Phone: [phone] 138-402803-09-2023 Miscellaneous Notes* Telephone Encounter - Rodri hCauhan MD - 11/23/2022 10:00 AM EST Okayed * Telephone Encounter - Ashley Jarrett RN - 11/23/2022 8:41 AM EST Patient has been identified by name and date of : Yes, Provider Dr Chauhan Date 11/23/22 Time 0843. Pharmacy phones for [...] you. Ashley Jarrett RN documented in this encounterDayton [facility]01-19-2023 Miscellaneous Notes* Telephone Encounter - Nuzhat Montes RN - 10/05/2022 8:24 AM EST Last Office Visit: 09/01/2022 Future Office Visit: 03/06/2023 Requested Prescriptions Pending Prescriptions Disp Refills Albuterol Sulfate 1.25 mg/3 mL nebulizer solution 75 mL 5 Sig: Use 1 Ampule via nebulizer every 4 hours as needed for wheezing/shortness of breath. Date of Last Labs: 2022 documented in this encounterDayton Children'[facility] Hospital01-13-2023 Miscellaneous Notes* Telephone Encounter - Zunilda Jaramillo APRN.CNP - 09/29/2022 1:31 PM EST PDMP website checked and validated. All prescriptions have been APPROPRIATELY filled. No suspiciousactivity was identified. 09/29/2022 by Zunilda Jaramillo APRN.CNP * Telephone Encounter - Karishma Segundo LPN - 09/29/2022 10:32 AM EST Last seen SINGER BACK TENDER 09/01/22. Next appt arranged for February. * Telephone Encounter - Nilda Jackson - 09/29/2022 9:36 AM EST Patient has been identified by name and [...] and advise. Nilda Jackson documented in this encounterDayton Children'[facility]01-10-2023 Miscellaneous Notes* Telephone Encounter - Sylwia Marcial LPN - 09/26/2022 11:08 AM EST Last office visit: 09/01/22 Next appointment scheduled: 03/06/23 * Telephone Encounter - Davy Walters Pss - 09/26/2022 8:25 AM EST Patient has been identified by name and date of : Yes Requested Prescriptions Pending Prescriptions Disp Refills cyclobenzaprine (FLEXERIL) 10 mg tablet 30 tablet 2 Sig: Take 1 tablet by mouth three times daily as needed for muscle spasm. May make drowsy RX INSTRUCTIONS: Pharmacy initiated this request. No need to notify patient. Davy Walters Pss documented in this encounterDayton Children'[facility]01-06-2023 Miscellaneous Notes* Telephone Encounter - Sylwia Marcial LPN - 09/22/2022 4:39 PM EST Patient had follow up 12/16/22 * Telephone Encounter - Rodri Chauhan MD - 08/19/2022 3:28 PM EST Needs follow up since not seen since last year. She canceled June and July appointments Needs seen before can give any more refills. Should have openings with Zunilda if none available with me * Telephone Encounter - Sylwia Marcial LPN - 08/19/2022 9:26 AM EST Last office visit: 08/15/21 Next appointment scheduled: No future appointments scheduled at this time. Patient phones requesting refills as follows: Requested Prescriptions Pending Prescriptions Disp Refills cyclobenzaprine (FLEXERIL) 10 mg tablet 30 tablet 3 Sig: Take 1 tablet by mouth three times daily as needed for muscle spasm. May make drowsy Please review and advise. Sylwia Marcial LPN documented in this encounterDayton Children'[facility] Hospital01-05-2023 Miscellaneous Notes* Telephone Encounter - Karishma Segundo LPN - 09/21/2022 2:23 PM EST There was no printed rx. They all went electronically. * Telephone Encounter - Rodri Chauhan MD - 09/14/2022 2:45 PM EST Okayed Printed CPAP supplies RX The following approved medication requests have been transmitted electronically. Requested Prescriptions Signed Prescriptions Disp Refills blood sugar diagnostic (TRUE METRIX GLUCOSE TEST STRIP) test strip 50 Strip 11 Sig: Use as instructed Authorizing Provider: RODRI CHAUHAN CPAP 1 Each 0 Sig: Continue CPAP @ 15 cm of water with humidification. Mask (per patient preference) optional chin strap (if indicated) , filters, tubing, humidifier and lifetime supplies. G47.33 MARIA TERESA on CPAP Authorizing Provider: RODRI CHAUHAN Blood-Glucose Meter (TRUE METRIX GLUCOSE METER) 1 Each 0 Sig: Use DIRECTED. Dx:Diabetes 11.9 Authorizing Provider: RODRI CHAUHAN lancets (UNILET LANCET) 28 gauge 100 Each 11 Sig: Check sugars once daily and as needed for symptoms of high or low sugars Dx E11.9 Insulin: no Authorizing Provider: RODRI CHAUHAN MD * Telephone Encounter - India Goldberg Pss - 09/14/2022 11:14 AM EST Patient has been identified by name and [...] advise. India Goldberg Pss documented in this encounterDayton [facility] Hospital12-27-2022 Miscellaneous Notes* Telephone Encounter - Luis Enrique Wiggins RN - 09/12/2022 11:23 AM EST Patient has been identified by name and [...] Luis Enrique Wiggins RN documented in this encounterDayton Children'S Hospital12-21-2022 Miscellaneous Notes* Telephone Encounter - Luis Enrique Wiggins RN - 09/06/2022 12:44 PM EST Patient returned call and given provider's message below with verbalized understanding. Transferredto pss. * Telephone Encounter - Vandana Mathias LPN - 09/06/2022 10:46 AM EST Left message to call & speak to nurse. Vandana Mathias LPN * Telephone Encounter - Lizabeth Melendrez LPN - 09/05/2022 5:00 PM EST No answer. Left message for patient to call office and ask to speak to a nurse regarding inhaler. * Telephone Encounter - Johnson Rm APRN.CNS - 09/05/2022 4:40 PM EST She can alternate albuterol inhaler with her albuterol nebulizer solution if needed to extend the duration of her inhaler. If she needs to use this every 4 hours consistently then she needs to see a roller printer as her lung disease is not in good control. Schedule if willing. If using temporarily for every 4 hours not required. * Telephone Encounter - Jo Ann Rodrigues - 09/05/2022 1:31 PM EST Patient said her rx for her HFA inhaler needs to be written differently. Said as needed needs to be removed. Her insurance company is not allowing her to refill it as often as she needs it. Said she uses it every 4 hours daily. Please advise at [phone]/ documented in this encounterDayton Children'S Hospital12-19-2022 Miscellaneous Notes* Telephone Encounter - Johnson Rm APRN.CNS - 09/04/2022 7:15 AM EST Was not discussed. OK for refill. * Telephone Encounter - Jessica Mason LPN - 09/02/2022 11:36 AM EST Patient calling said she was [facility] Pending rx to file if wanted. Please advise documented in this encounterDayton Children'S Hospital10-26-2022 Miscellaneous Notes* Telephone Encounter - Sintia Neely Ma - 07/12/2022 11:11 AM EDT LM notifying patient of lab orders * Telephone Encounter - Rodri Chauhan MD - 07/07/2022 11:37 AM EDT Missed or cancelled appointment since last July appointment. Will get refills when in for June appointment as scheduled. I ordered labs assuming not going elsewhere for management of uncontrolled diabetes or getting labsdrawn outside of [facility] system. She should get the labs prior to the appointment so can review with Johnson lee. Schedule 6 month follow up with me for after that appointment. The following approved medication requests have been transmitted electronically. Requested Prescriptions Signed Prescriptions Disp Refills topiramate (TOPAMAX) 100 mg tablet 60 tablet 0 Sig: Take 1 tablet by mouth twice daily. Authorizing Provider: RODRI CHAUHAN loratadine (CLARITIN) 10 mg tablet 30 tablet 0 Sig: Take 1 tablet by mouth once daily. Authorizing Provider: RODRI CHAUHAN cyclobenzaprine (FLEXERIL) 10 mg tablet 30 tablet 0 Sig: Take 1 tablet by mouth three times daily as needed for muscle spasm. May make drowsy Authorizing Provider: RODRI CHAUHAN Refused Prescriptions Disp Refills Albuterol Sulfate 1.25 mg/3 mL nebulizer solution 75 mL 5 Sig: Use 1 Ampule via nebulizer every 4 hours as needed for wheezing/shortness of breath. Refused By: LIZABETH MELENDREZ LPN Reason for Refusal: Records indicate that there is a valid prescription at the pharmacy Rodri Chauhan MD * Telephone Encounter - Loretta Ruff Pss - 07/06/2022 8:53 AM EDT Patient has been identified by name and [...] advise. Loretta Ruff Pss documented in this [facility]10-25-2022 Miscellaneous Notes* Telephone Encounter - Jo Ann Delgado Pss - 07/11/2022 8:40 AM EDT Patient has been identified by name and date of : Yes Requested Prescriptions Pending Prescriptions Disp Refills Albuterol Sulfate 1.25 mg/3 mL nebulizer solution 75 mL 5 Sig: Use 1 Ampule via nebulizer every 4 hours as needed for wheezing/shortness of breath. RX INSTRUCTIONS: Pharmacy initiated this request. No need to notify patient. Jo Ann Delgado Pss documented in this encounterDayton Children'S Hospital10-04-2022 Miscellaneous Notes* Telephone En[facility] - [facility] 06/20/[facility]22 10:29 AM EDT Patient has been identified by name and date of : Yes Requested Prescriptions Pending Prescriptions Disp Refills naproxen (NAPROSYN) 500 mg tablet 60 tablet 3 Sig: Take 1 tablet by mouth twice daily as needed (for pain/inflammation). Take with food. RX INSTRUCTIONS: Pharmacy initiated this request. No need to notify patient. Sharmaine [facility] documented in this [facility]09-12-2022 Miscellaneous Notes* Telephone Encounter - Rodri Chauhan MD - 05/29/2022 6:59 PM EDT Okayed * Telephone Encounter - Trey Vera Ma - 05/29/2022 8:11 AM EDT CAESAR: 08/15/2021 NOV: 05/31/2022 Imitrex Last refill: 11/23/2021 QTY: 27 Refills: 1 flexeril Last refill: 04/25/2022 QTY: 30 Refills: 0 * Telephone Encounter - India Goldberg Pss - 05/27/2022 11:45 AM EDT Patient has been identified by name and [...] advise. India Goldberg Pss documented in this encounterDayton Children'S Hospital09-12-2022 Miscellaneous Notes* Telephone Encounter - Vandana Mathias LPN - 05/29/2022 3:19 PM EDT [facility], asking for the prescription to be written alittle differently because they are having to deliver Albuterol Nebulizer solution to Patient every 5 days. As the prescription is written 1 box = 25 vials, Patient is using 4-5x daily. Vandana Mathias LPN * Telephone Encounter - Sherie Lazcano - 05/29/2022 2:20 PM EDT Patient has been identified by name and date of : Yes Requested Prescriptions Pending Prescriptions Disp Refills Albuterol Sulfate 1.25 mg/3 mL nebulizer solution 75 mL 5 Sig: Use 1 Ampule via nebulizer every 4 hours as needed for wheezing/shortness of breath. RX INSTRUCTIONS: Patient aware RX will be sent to pharmacy. No need to notify patient. Sherie Lazcano documented in this encounterDayton Children'S Hospital08-09-2022 Miscellaneous Notes* Telephone Encounter - Rodri Chauhan MD - 04/25/2022 10:26 PM EDT Okayed * Telephone Encounter - Nuzhat Montes RN - 04/25/2022 11:34 AM EDT Last Office Visit: 08/15/2021 Future Office Visit: 06/26/2022 Last Medication Refill: loratadine 11/23/2021 30 tab 3 refill Date of Last Labs: 02/02/2021 documented in this encounterDayton Children'S Hospital08-08-2022 Miscellaneous Notes* Telephone Encounter - Nilda Rodrigues - 04/24/2022 9:15 AM EDT Pharmacy verified in [facility] Patient has been identified by name and date of : Yes Patient aware RX will be sent to pharmacy. No need to notify patient. Patient phones for refill(s): Pending Prescriptions Disp Refills ALBUTEROL SULFATE 1.25 MG/3 ML SOLUTION FOR NEBULIZATION 75 mL 5Sig: Use 1 Ampule via nebulizer every 4 [...] advise. Nilda Laughlin Pss documented in this encounterDayton Children'S Hospital08-02-2022 Miscellaneous Notes* Telephone Encounter - Chantel Wesley Ma - 04/18/2022 1:09 PM EDT Pt notified. She is no longer using [facility] would like resent to [facility]. Chantel Wesley Ma * Telephone Encounter - Johnson Rm APRN.CNS - 04/17/2022 4:56 PM EDT Ok to increase from 1mg to 1.5 mg. Rx sent * Telephone Encounter - Nilda Laughlin Pss - 04/17/2022 11:44 AM EDT Patient is requesting a call from the provider in regards to medication increase. * Telephone Encounter - Mylene Staples - 04/15/2022 11:45 AM EDT PT is wanting to up to 1 [...] and advise. Mylene Staples documented in this encounterDayton Children'S Hospital07-12-2022 Miscellaneous Notes* Telephone Encounter - Kailee Salinas LPN - 03/28/2022 11:40 AM EDT Spoke with pt and information listed below given. Pt verbalizes understanding. Pt is on a cancellation list to be seen earlier. Kailee Salinas LPN * Telephone Encounter - Rodri Chauhan MD - 03/27/2022 9:56 PM EDT She has missed or cancelled appointments since [...] make drowsy SANCHO: No Authorizing Provider: RODRI CHAUHAN acetaminophen-codeine (TYLENOL-CODEINE #3) 300-30 mg per tablet 20 tablet 0 Sig: Take 1 tablet by mouth every 6 hours as needed for pain for up to 7 days. Uses as needed for severe pain. Do not start before March 28, 2022. RAYO Class: C-III SANCHO: No Authorizing Provider: RODRI CHAUHAN MD * Telephone Encounter - Karishma Segundo LPN - 03/27/2022 10:52 AM EDT Last seen SINGER BACK TENDER 08/15/21. Pt missed 03/13/22 appt with pcp Next appt with SINGER BACK TENDER * Telephone Encounter - Sherie Lazcano - 03/27/2022 10:07 AM EDT Patient has been identified by name and [...] notify patient. Sherie Lazcano documented in this encounterDayton Children'S Hospital07-11-2022 Miscellaneous Notes* Telephone Encounter - Ashley Jarrett RN - 03/27/2022 4:05 PM EDT Pt called and is notified of providers message and instructions. Pt voices understanding. Ashley Jarrett RN * Telephone Encounter - Rodri Chauhan MD - 03/27/2022 3:49 PM EDT Also needed follow up on CBC and CMP and iron stores Filed * Telephone Encounter - Sherie Lazcano - 03/27/2022 10:11 AM EDT Patient calling to request an order for Labs, especially A1C Please advise. Patient is requesting a return call from our office. documented in this encounterDayton Children'S Hospital06-28-2022 Miscellaneous Notes* Telephone Encounter - Sintia Neely Ma - 03/14/2022 11:42 AM EDT Last OV: 08/15/21 Next OV: N/A * Telephone Encounter - Davy Walters Pss - 03/14/2022 11:33 AM EDT Patient has been identified by name and date of : Yes Pending Prescriptions Disp Refills PRAMIPEXOLE 1 MG TABLET 30 tablet 3 Sig: Take 1 tablet by mouth daily at bedtime. SANCHO: No RX INSTRUCTIONS: Pharmacy initiated this request. No need to notify patient. Davy Walters Pss documented in this encounterDayton Children'S Hospital06-17-2022 Miscellaneous Notes* Telephone Encounter - Kailee Salinas LPN - 03/03/2022 8:40 AM EDT Left a detailed message with information listed below and letting pt know her prescriptions were sent to the pharmacy. Kailee Salinas LPN * Telephone Encounter - Rodri Chauhan MD - 03/02/2022 7:06 PM EDT Just recently filled Tylenol #3 02/01. Prior filled 11/23 and 09/23. Med not for routine use. If having increased pain, will decide on further evaluation and treatment so not needing to take pain med so often, Will discuss at [facility] appointment . The following approved medication requests have been transmitted electronically. Signed Prescriptions Disp Refills acetaminophen-codeine (TYLENOL-CODEINE #3) 300-30 mg per tablet 30 tablet 0 Sig: Take 1 tablet by mouth every 4 hours as needed for pain for up to 5 days. Uses as needed for severe pain. RAYO Class: C-III SANCHO: No Authorizing Provider: RODRI CHAUHAN cyclobenzaprine (FLEXERIL) 10 mg tablet 30 tablet 0 Sig: Take 1 tablet by mouth three times daily as needed for muscle spasm. May make drowsy SANCHO: No Authorizing Provider: RODRI CHAUHAN albuterol HFA (VENTOLIN HFA) 90 mcg/actuation inhaler 18 g 11 Sig: Inhale 2 Puffs as instructed every 4 hours as needed. SANCHO: No Authorizing Provider: RODRI CHAUHAN MD * Telephone Encounter - Davy Madeline Walters Pss - 02/28/2022 3:34 PM EDT These need to go to [facility] instead of [facility] please . See change. * Telephone Encounter - Kailee Salinas LPN - 02/28/2022 2:29 PM EDT Patient has been identified by name and [...] Please advise. Thank you. Kailee Salinas LPN * Telephone Encounter - Hannah Medel - 02/28/2022 1:27 PM EDTSummary: Med Refill Patient has been identified by [...] and advise. Hannah Medel documented in this [facility]Day[facility] Miscellaneous Notes* Telephone Encounter - Nuzhat Montes RN - 03/02/2022 3:41 PM EDT Duplicate refill encounter, same date. See other refill encounter for multiple medications. This encounter closed. Nuzhat Montes RN * Telephone Encounter - [facility] - 03/02/2022 3:22 PM EDT Patient has been identified by name and date of : Yes Pending Prescriptions Disp Refills ALBUTEROL SULFATE HFA 90 MCG/ACTUATION AEROSOL INHALER 18 g 11 Sig: Inhale 2 Puffs as instructed every 4 hours as needed. SANCHO: No RX INSTRUCTIONS: Patient aware RX will be sent to pharmacy. No need to notify patient. Patient states [facility]) [facility] documented in this encounterDayton [facility]05-[facility]22 Miscellaneous Notes* Telephone Encounter - Karishma Segundo LPN - 02/02/2022 3:37 PM EDT Last seen [facility] 08/15/21. Next appt with pcp 03/13/22. * Telephone Encounter - Miryam Rodrigues - 02/02/2022 3:04 PM EDT Patient has been identified by name and [...] notify patient. Miryam Rodrigues documented in this encounterDayton [facility]05-18-2022 Miscellaneous Notes* Telephone Encounter - Karishma Segundo LPN - 02/01/2022 12:47 PM EDT Pharmacy notified. * Telephone Encounter - Karishma Segundo LPN - 02/01/2022 12:46 PM EDT Images from the original note were not included. Approved Prior authorization approved Payer: [facility] Approved. Approval Details Authorized from January 02, 2022 to February 01, 2023 Electronic appeal: Not supported View History Medication Being Authorized Albuterol Sulfate 1.25 mg/3 mL nebulizer solution * Telephone Encounter - Karishma Segundo LPN - 01/31/2022 1:26 PM EDT PA completed and waiting for response. * Telephone Encounter - Karishma Segundo LPN - 01/31/2022 11:39 AM EDT Electronic PA requested. * Telephone Encounter - Suze Miller LPN - 01/31/2022 11:03 AM EDT PRIOR AUTHORIZATION Medication for Prior Authorization: Albuterol Sulfate Nebulizer Solution Other formulary meds available : NO-unknown Insurance Company: [employer] phone number: Patient insurance ID number: [id number] Suze Miller LPN documented in this encounterDayton [facility]05-17-2022 Miscellaneous Notes* Telephone Encounter - Sintia Neely Ma - 01/31/2022 2:32 PM EDT Form signed by Dr. Chauhan, and faxed back to AEP * Telephone Encounter - Suze Miller LPN - 01/31/2022 11:04 AM EDT Pt is calling to check on status of AEP form. Suze Miller LPN * Telephone Encounter - Lizaebth Melendrez LPN - 01/30/2022 1:20 PM EDT Received form from [employer]EP. Form is at nurse's pod to fill out and sign. * Telephone Encounter - Marielena Nogueira RN - 01/30/2022 8:07 AM EDT Patient calling with update. She reports that her [employer] company is faxing over an AEP medical form to Dr. Chauhan's office today. Patient requesting Dr. Chauhan complete form and fax back to number provider today, if possible. Patient states this is so her electric does not get shut off due to patient wears CPAP. Please contact patient once form completed and faxed back. Thank you. * Telephone Encounter - Nuzhat Hardin - 01/28/2022 8:03 AM EDT Patient called in needing a letter stating she is on CPAP Machine for the [employer]. The [employer] is threatening to shut off the electric by Sunday if they do not have proof of her needing her CPAP. Please assist. Nuzhat Hardin documented in this [facility]05-16-2022 Miscellaneous Notes* Telephone Encounter - Lizabeth Melendrez LPN - 01/30/2022 1:22 PM EDT Spoke with patient regarding message. Patient is requesting prescription for DDM brand test strips (True Metrix test strips). Order pending * Telephone Encounter - Sherie Lazcano - 01/30/2022 10:52 AM EDT Patient has been identified by name and date of : Yes Patient asking for Trulicity test strips RX INSTRUCTIONS: Patient aware RX will be sent to pharmacy. No need to notify patient. Sherie Lazcano documented in this [facility]05-14-2022 Miscellaneous Notes* Telephone Encounter - Nuzhat Hardin - 01/28/2022 8:05 AM EDT Patient has been identified by name and [...] and advise. Nuzhat Hardin documented in this encounterDayton Children'[facility] Hospital03-09-2022 Miscellaneous Notes* Telephone Encounter - Rodri Chauhan MD - 11/23/2021 10:17 AM EST The following approved medication requests have been transmitted electronically. Signed Prescriptions Disp Refills pramipexole (MIRAPEX) 1 mg tablet 30 tablet 3 Sig: Take 1 tablet by mouth daily at bedtime. SANCHO: No Authorizing Provider: RODRI CHAUHAN naproxen (NAPROSYN) 500 mg tablet 60 tablet 3 Sig: Take 1 tablet by mouth twice daily as needed (for pain/inflammation). Take with food. SANCHO: No Authorizing Provider: RODRI CHAUHAN SUMAtriptan (IMITREX) 25 mg tablet 27 tablet 1 Sig: Take 1 tablet by mouth at onset of headache and may repeat in 2 hrs if needed. SANCHO: No Authorizing Provider: RODRI CHAUHAN acetaminophen-codeine (TYLENOL-CODEINE #3) 300-30 mg per tablet 30 tablet 0 Sig: Take 1 tablet by mouth every 4 hours as needed for pain for up to 5 days. Uses as needed for severe pain. RAYO Class: C-III SANCHO: No Authorizing Provider: RODRI CHAUHAN loratadine (CLARITIN) 10 mg tablet 30 tablet 3 Sig: Take 1 tablet by mouth once daily. SANCHO: No Authorizing Provider: RODRI CHAUHAN MD * Telephone Encounter - Sintia Neely Ma - 11/21/2021 11:45 AM EST Last OV: 08/15/2021 Next OV: 03/13/2022 documented in this encounterDayton [facility]03-27-[facility] History of Past illness Narrative* Problem [...] this encounter (statuses as of 01/30/2022) [facility] Narrative* Problem [...] this encounter (statuses as of 01/30/2022) [facility] Narrative* Problem [...] this encounter (statuses as of 01/31/2022) [facility] Narrative* Problem [...] this encounter (statuses as of 01/31/2022) [facility] Narrative* Problem [...] this encounter (statuses as of 02/01/2022) [facility]ative* Problem [...] this encounter (statuses as of 02/02/2022) [facility]ative* Problem [...] this encounter (statuses as of 03/02/2022) [facility]* Problem [...] this encounter (statuses as of 03/03/2022) [facility]ative* Problem [...] this encounter (statuses as of 03/14/2022) [facility]* Problem [...] this encounter (statuses as of 03/27/2022) [facility]* Problem [...] this encounter (statuses as of 03/28/2022) [facility]* Problem [...] this encounter (statuses as of 04/18/2022) [facility]* Problem [...] this encounter (statuses as of 04/25/2022) [facility]* Problem [...] this encounter (statuses as of 04/26/2022) [facility]* Problem [...] this encounter (statuses as of 05/29/2022) [facility]* Problem [...] this encounter (statuses as of 05/30/2022) [facility]* Problem [...] this encounter (statuses as of 06/20/2022) [facility]* Problem [...] this encounter (statuses as of 07/11/2022) [facility]* Problem [...] this encounter (statuses as of 07/12/2022) [facility]* Problem [...] this encounter (statuses as of 09/04/2022) [facility] Problem [...] this encounter (statuses as of 09/06/2022) [facility] Problem [...] this encounter (statuses as of 09/15/2022) [facility] Problem [...] this encounter (statuses as of 09/18/2022) [facility]* Problem [...] this encounter (statuses as of 09/22/2022) [facility] Problem [...] this encounter (statuses as of 09/23/2022) [facility] Problem [...] this encounter (statuses as of 09/26/2022) [facility] Problem [...] this encounter (statuses as of 09/29/2022) [facility] Problem [...] this encounter (statuses as of 10/05/2022) [facility] Problem [...] this encounter (statuses as of 11/02/2022) [facility] Problem [...] this encounter (statuses as of 11/23/2022) [facility] Problem [...] this encounter (statuses as of 01/01/2023) [facility] Problem [...] this encounter (statuses as of 01/01/2023) [facility] Problem [...] this encounter (statuses as of 01/11/2023) [facility] Problem [...] this encounter (statuses as of 01/19/2023) [facility] Problem [...] this encounter (statuses as of 02/13/2023) [facility] Problem [...] this encounter (statuses as of 02/15/2023) [facility] Problem [...] this encounter (statuses as of 02/20/2023) [facility] Problem [...] this encounter (statuses as of 02/20/2023) [facility] Problem [...] this encounter (statuses as of 03/07/2023) [facility] Problem [...] this encounter (statuses as of 03/15/2023) [facility] Problem [...] this encounter (statuses as of 04/16/2023) [facility] Problem [...] this encounter (statuses as of 04/24/2023) [facility] Problem [...] this encounter (statuses as of 05/02/2023) [facility] Problem [...] this encounter (statuses as of 05/02/2023) [facility] Problem [...] of this encounter (statuses as of 05/04/2023) [facility] Problem [...] of this encounter (statuses as of 05/08/2023) [facility] Problem [...] of this encounter (statuses as of 06/01/2023) [facility] Problem [...] this encounter (statuses as of 06/30/2023) [facility] Problem [...] this encounter (statuses as of 07/02/2023) [facility] Problem [...] this encounter (statuses as of 07/13/2023) [facility] Problem [...] this encounter (statuses as of 07/17/2023) [facility] Problem [...] this encounter (statuses as of 07/22/2023) [facility] Problem [...] this encounter (statuses as of 07/24/2023) [facility] Problem [...] this encounter (statuses as of 07/24/2023) [facility] Problem [...] this encounter (statuses as of 07/27/2023) [facility] Problem [...] this encounter (statuses as of 07/31/2023) [facility] Problem [...] this encounter (statuses as of 07/31/2023) [facility] Problem [...] this encounter (statuses as of 08/07/2023) [facility] Problem [...] this encounter (statuses as of 08/07/2023) [facility] Problem [...] this encounter (statuses as of 08/08/2023) [facility] Problem [...] this encounter (statuses as of 08/08/2023) [facility] Problem [...] this encounter (statuses as of 08/21/2023) [facility] Problem [...] of this encounter (statuses as of 08/22/2023) [facility] Problem [...] as of this encounter (statuses as of 11/19/2023) [facility] Problem [...] as of this encounter (statuses as of 11/21/2023) [facility] Problem [...] as of this encounter (statuses as of 11/22/2023) [facility] Problem [...] as of this encounter (statuses as of 11/22/2023) [address]27-2017 History of Past illness Narrative* Problem [...] as of this encounter (statuses as of 11/23/2023) [address]27-2017 History of Past illness Narrative* Problem [...] as of this encounter (statuses as of 12/04/2023) [address]27-2017 History of Past illness Narrative* Problem [...] as of this encounter (statuses as of 12/07/2023) [facility] Problem [...] as of this encounter (statuses as of 12/10/2023) [facility]* Problem [...] as of this encounter (statuses as of 01/01/2024) [facility] Diagnosis Moderate persistent asthma without complication Unspecified asthma [facility] Restless leg syndrome Restless legs syndrome (RLS) Greater trochanteric bursitis of both hips Enthesopathy of hip region Migraine without aura and without status migrainosus, not intractable Migraine without aura, without mention of intractable migraine without mention of status migrainosus Hip pain, left Pain in joint, pelvic region and thigh [facility] Diagnosis Controlled type 2 diabetes mellitus without complication, without long-term current use of insulin (HCC) Uncontrolled type 2 diabetes mellitus with hyperglycemia (HCC) Moderate persistent asthma with exacerbation Unspecified asthma, with exacerbation [facility]* Diagnosis Moderate persistent asthma without complication Unspecified asthma [facility] [place] [facility]* Diagnosis Hip pain, left Pain in joint, pelvic region and thigh Lumbago Moderate persistent asthma without complication Unspecified asthma [facility] Diagnosis Restless leg syndrome Restless legs syndrome (RLS) [facility] [place] [facility]* Diagnosis Hyperlipidemia, unspecified hyperlipidemia type- Primary Controlled type 2 diabetes mellitus without complication, without long-term current use of insulin (HCC) Elevated LFTs Other abnormal blood chemistry RBC microcytosis Other abnormality of red blood cells Encounter for long-term current use of medication Thrombocytopenia (HCC) Thrombocytopenia, unspecified Iron deficiency Iron deficiency anemia, unspecified [facility]* Diagnosis Lumbago Hip pain, left Pain in joint, pelvic region and thigh [facility] [place] [facility]* Diagnosis Restless leg syndrome Restless legs syndrome (RLS) [facility] [place] [facility]* Diagnosis Moderate persistent asthma without complication Unspecified asthma Lumbago Generalized abdominal pain Abdominal pain, generalized [facility] Diagnosis Migraine without aura and without status migrainosus, not intractable Migraine without aura, without mention of intractable migraine without mention of status migrainosus Lumbago [facility] Diagnosis Moderate persistent asthma without complication Unspecified asthma [facility] noteNo assessment information availableWCenterville Work Phone: Evaluation note* Diagnosis Greater trochanteric bursitis of both hips Enthesopathy of hip region [facility]* Diagnosis Uncontrolled type 2 diabetes mellitus with hyperglycemia (HCC)- Primary Lumbago Moderate persistent asthma without complication Unspecified asthma Hyperlipidemia, unspecified hyperlipidemia type RBC microcytosis Other abnormality of red blood cells Iron deficiency Iron deficiency anemia, unspecified [facility]* Diagnosis Hip pain, left Pain in joint, pelvic region and thigh [facility] [place] [facility]* Diagnosis Intermittent asthma, unspecified asthma severity, unspecified whether complicated- Primary [facility] [place] [facility]* Diagnosis Encounter for screening mammogram for breast cancer [facility]* Diagnosis Migraine without aura and without status migrainosus, not intractable Migraine without aura, without mention of intractable migraine without mention of status migrainosus [facility]* Diagnosis MARIA TERESA on CPAP Obstructive sleep apnea (adult) (pediatric) Controlled type 2 diabetes mellitus without complication, without long-term current use of insulin (HCC) [facility] [place] [facility]* Diagnosis Lumbago [facility]* Diagnosis Lumbago [facility]* Diagnosis Hip pain, left Pain in joint, pelvic region and thigh [facility]* Diagnosis Lumbago [facility]* Diagnosis Moderate persistent asthma without complication Unspecified asthma [facility]* Diagnosis Greater trochanteric bursitis of both hips Enthesopathy of hip region [facility] [place] [facility]* Diagnosis Controlled type 2 diabetes mellitus without complication, without long-term current use of insulin (HCC) Moderate persistent asthma with exacerbation Unspecified asthma, with exacerbation [facility]* Diagnosis Lumbago [facility]* Diagnosis Chronic radicular low back pain- Primary Thoracic or lumbosacral neuritis or radiculitis, unspecified Pain in both knees, unspecified chronicity Controlled type 2 diabetes mellitus without complication, without long-term current use of insulin (HCC) Foot pain, bilateral Pain in limb [facility]* Diagnosis Cellulitis of right lower extremity- [...] therapeutic drug monitoring [facility] [place] [facility] Diagnosis Bilateral foot pain- Primary Pain in limb [facility] [place] [facility]* Diagnosis Rash and nonspecific skin eruption- Primary Rash and other nonspecific skin eruption Encounter for immunization Need for other specified prophylactic vaccination against single bacterial disease Screening for diabetic retinopathy Screening for other eye conditions Controlled type 2 diabetes mellitus without complication, without long-term current use of insulin ([facility]) Hyperlipidemia with target LDL less than [...] Panniculitis, unspecified site [facility] [place] [facility]* Diagnosis Lumbago [facility] [place] [facility]* Diagnosis Greater trochanteric bursitis of both hips Enthesopathy of hip region documented in this encounter [facility] note* Diagnosis Lumbago documented in this encounter [facility] note* Diagnosis Iron deficiency anemia, unspecified iron [...] 60.0 to 69.9 in adult ([facility]) Encounter for long-term current use of medication [facility] [place] [facility]* Diagnosis Cellulitis of abdominal wall- Primary Cellulitis and abscess of trunk Cellulitis of right lower extremity Cellulitis and abscess of leg, except foot Bilateral leg edema Edema Moderate depressed bipolar I disorder ([facility]) Bipolar I disorder, most recent episode (or current) depressed, moderate [facility] [place] [facility]* Diagnosis Cellulitis of right lower extremity Cellulitis and abscess of leg, except foot Bilateral leg edema Edema [facility] [place] [facility]* Diagnosis Class 3 severe obesity due to excess calories with serious comorbidity and body mass index (BMI) of 60.0 to 69.9 in adult (HCC)- Primary documented [facility] [place] [facility]* Diagnosis Lumbago documented [facility] [place] [facility]* Diagnosis Onset Date Resolution Status Calciphylaxis acute Diabetes mellitus with diabetic polyneuropathy acute Lymphedema acute Morbidly obese acute Type 2 diabetes mellitus with foot ulcer acute Ulcer of right lower extremity with fat layer exposed acute [facility] Work Phone: Evaluation note* Diagnosis Cellulitis of right lower extremity Cellulitis and abscess of leg, except foot Bilateral leg edema Edema [facility] [place] [facility]* Diagnosis Dental infection- Primary Acute apical periodontitis of pulpal origin Right wrist pain Pain in joint, forearm Penicillin allergy Personal history of allergy to penicillin [facility] [place] [facility]* Diagnosis Lumbago [facility] [place] [facility]* Diagnosis Hip pain, left Pain in joint, pelvic region and thigh [facility] [place] [facility]* Diagnosis Chronic radicular low back pain- Primary Thoracic or lumbosacral neuritis or radiculitis, unspecified Hip pain, left Pain in joint, pelvic region and thigh Chronic cough Cough Intermittent asthma without complication, unspecified asthma severity [facility] [place] [facility]* Diagnosis Chronic radicular low back pain Thoracic or lumbosacral neuritis or radiculitis, unspecified Hip pain, left Pain in joint, pelvic region and thigh [facility] [place] [facility]* Diagnosis Greater trochanteric bursitis of both hips Enthesopathy of hip region [facility] [place] [facility]* Diagnosis Chronic radicular low back pain Thoracic or lumbosacral neuritis or radiculitis, unspecified Hip pain, left Pain in joint, pelvic region and thigh [facility] Diagnosis Onset Date Resolution Status Calciphylaxis acute Diabetes mellitus with diabetic polyneuropathy acute Lymphedema acute Morbidly obese acute Type 2 diabetes mellitus with foot ulcer acute Ulcer of right lower extremity with fat layer exposed acute Diabetes mellitus with diabetic polyneuropathy acute Lymphedema acute Type 2 diabetes mellitus with foot ulcer acute Ulcer of right lower extremity with fat layer exposed acute [facility] Work Phone: Evaluation note* Diagnosis Lumbago Generalized abdominal pain Abdominal pain, generalized [facility] Diagnosis Onset Date Resolution Status Calciphylaxis acute Diabetes mellitus with diabetic polyneuropathy acute Lymphedema acute Morbidly obese acute Type 2 diabetes mellitus with foot ulcer acute Ulcer of right lower extremity with fat layer exposed acute Diabetes mellitus with diabetic polyneuropathy acute Lymphedema acute Type 2 diabetes mellitus with foot ulcer acute Ulcer of right lower extremity with fat layer exposed acute Diabetes mellitus with diabetic polyneuropathy acute Lymphedema acute Morbidly obese acute Type 2 diabetes mellitus with foot ulcer acute Ulcer of right lower extremity with fat layer exposed acute [facility] Work Phone: Evaluation note* Diagnosis Onset Date Resolution Status Calciphylaxis acute Diabetes mellitus with diabetic polyneuropathy acute Lymphedema acute Morbidly obese acute Type 2 diabetes mellitus with foot ulcer acute Ulcer of right lower extremity with fat layer exposed acute Diabetes mellitus with diabetic polyneuropathy acute Lymphedema acute Type 2 diabetes mellitus with foot ulcer acute Ulcer of right lower extremity with fat layer exposed acute Diabetes mellitus with diabetic polyneuropathy acute Lymphedema acute Morbidly obese acute Type 2 diabetes mellitus with foot ulcer acute Ulcer of right lower extremity with fat layer exposed acute Calciphylaxis acute Diabetes mellitus with diabetic polyneuropathy acute Ulcer of right lower extremity with fat layer exposed acute Acute painful diabetic polyneuropathy acute Lymphedema, not elsewhere classified acute [id number] chronic [facility] Work Phone: Evaluation note* Diagnosis Onset Date Resolution Status Calciphylaxis acute Diabetes mellitus with diabetic polyneuropathy acute Lymphedema acute Morbidly obese acute Type 2 diabetes mellitus with foot ulcer acute Ulcer of right lower extremity with fat layer exposed acute Diabetes mellitus with diabetic polyneuropathy acute Lymphedema acute Type 2 diabetes mellitus with foot ulcer acute Ulcer of right lower extremity with fat layer exposed acute Diabetes mellitus with diabetic polyneuropathy acute Lymphedema acute Morbidly obese acute Type 2 diabetes mellitus with foot ulcer acute Ulcer of right lower extremity with fat layer exposed acute Acute painful diabetic polyneuropathy acute Lymphedema, not elsewhere classified acute [id number] chronic Acute painful diabetic polyneuropathy acute Calciphylaxis acute Diabetes mellitus with diabetic polyneuropathy acute Lymphedema, not elsewhere classified acute Ulcer of right lower extremity with fat layer exposed acute Wound dehiscence, surgical a cute [id number] [facility] Work Phone: Evaluation note* Diagnosis Onset Date Resolution Status Diabetes mellitus with diabetic polyneuropathy acute Lymphedema acute Type 2 diabetes mellitus with foot ulcer acute Ulcer of right lower extremity with fat layer exposed acute Diabetes mellitus with diabetic polyneuropathy acute Lymphedema acute Morbidly obese acute Type 2 diabetes mellitus with foot ulcer acute Ulcer of right lower extremity with fat layer exposed acute Acute painful diabetic polyneuropathy acute Lymphedema, not elsewhere classified acute [id number] chronic Acute painful diabetic polyneuropathy acute Calciphylaxis acute Diabetes mellitus with diabetic polyneuropathy acute Lymphedema, not elsewhere classified acute Ulcer of right lower extremity with fat layer exposed acute Wound dehiscence, surgical a cute [id number] chronic Acute painful diabetic polyneuropathy acute Cellulitis acute Lymphedema, not elsewhere classified acute Wound dehiscence, surgical a cute [id number] chronic [id number] [facility] Work Phone: Evaluation note* Diagnosis Cellulitis of right lower extremity Cellulitis and abscess of leg, except foot Bilateral leg edema Edema Lumbago Controlled type 2 diabetes mellitus without complication, without long-term current use of insulin (HCC) Uncontrolled type 2 diabetes mellitus with hyperglycemia (HCC) Moderate persistent asthma without complication Unspecified asthma [facility] [place] [facility]* Diagnosis Controlled type 2 diabetes mellitus without complication, without long-term current use of insulin (HCC)- Primary [facility] Diagnosis Controlled type 2 diabetes mellitus without complication, without long-term current use of insulin (HCC) documented [facility] [place] [facility]* Diagnosis Moderate persistent asthma with exacerbation Unspecified asthma, with exacerbation [facility] [place] [facility]* Diagnosis Controlled type 2 diabetes mellitus without complication, without long-term current use of insulin (HCC)- Primary Wound of right lower extremity, subsequent encounter Chronic dental pain Unspecified disorder of the teeth and supporting structures Tobacco use disorder Morbid obesity (HCC) Morbid obesity Iron deficiency anemia, unspecified iron deficiency anemia type Mouth pain Other and unspecified diseases of the oral soft tissues Intermittent asthma without complication, unspecified asthma severity Skin disorder Unspecified disorder of skin and subcutaneous tissue Chronic radicular low back pain Thoracic or lumbosacral neuritis or radiculitis, unspecified documented [facility] [place] [facility]* Diagnosis Onset Date Resolution Status Diabetes mellitus with diabetic polyneuropathy acute Lymphedema acute Morbidly obese acute Type 2 diabetes mellitus with foot ulcer acute Ulcer of right lower extremity with fat layer exposed acute Acute painful diabetic polyneuropathy acute Lymphedema, not elsewhere classified acute [id number] chronic Acute painful diabetic polyneuropathy acute Calciphylaxis acute Diabetes mellitus with diabetic polyneuropathy acute Lymphedema, not elsewhere classified acute Ulcer of right lower extremity with fat layer exposed acute Wound dehiscence, surgical a cute [id number] chronic Acute painful diabetic polyneuropathy acute Cellulitis acute Lymphedema, not elsewhere classified acute Wound dehiscence, surgical a cute [id number] chronic [id number] chronic Lymphedema, not elsewhere classified acute Wound dehiscence, surgical a cute [id number] chronic [id number] chronic [facility] Work Phone: Evaluation note* Diagnosis Lumbago Controlled type 2 diabetes mellitus without complication, without long-term current use of insulin (HCC) documented [facility] [place] [facility]* Diagnosis Intermittent asthma without complication, unspecified asthma severity documented in this encounter [facility] note* Diagnosis Onset Date Resolution Status Acute painful diabetic polyneuropathy acute Lymphedema, not elsewhere classified acute [id number] chronic Acute painful diabetic polyneuropathy acute Calciphylaxis acute Diabetes mellitus with diabetic polyneuropathy acute Lymphedema, not elsewhere classified acute Ulcer of right lower extremity with fat layer exposed acute Wound dehiscence, surgical a cute [id number] chronic Acute painful diabetic polyneuropathy acute Cellulitis acute Lymphedema, not elsewhere classified acute Wound dehiscence, surgical a cute [id number] chronic [id number] chronic Lymphedema, not elsewhere classified acute Wound dehiscence, surgical a cute [id number] chronic [id number] chronic Acute painful diabetic polyneuropathy acute Cellulitis acute Lymphedema, not elsewhere classified acute Wound dehiscence, surgical a cute [id number] chronic [id number] chronic [facility] Work Phone: Evaluation note* Diagnosis Lumbago Cellulitis of right lower extremity Cellulitis and abscess of leg, except foot Bilateral leg edema Edema [facility] [place] [facility]* Diagnosis Lumbago Cellulitis of right lower extremity Cellulitis and abscess of leg, except foot Bilateral leg edema Edema documented [facility] [place] [facility]* Diagnosis Left knee pain, unspecified chronicity- Primary documented [facility] [place] [facility]* Diagnosis Lumbago documented in this encounter [facility] note* Diagnosis Rib pain- Primary Chest pain, unspecified Back pain, unspecified back location, unspecified back pain laterality, unspecified chronicity documented [facility] [place] [facility]* Diagnosis Lumbago documented in this encounter [facility] note* Diagnosis Uncontrolled type 2 diabetes mellitus with hyperglycemia (HCC)- Primary Restless leg syndrome Restless legs syndrome (RLS) Iron deficiency anemia, unspecified iron deficiency anemia type documented in this encounter [facility] note* Diagnosis Intermittent asthma without complication, unspecified asthma severity documented in this encounter [facility] note* Diagnosis Uncontrolled type 2 diabetes mellitus with hyperglycemia (HCC)- Primary Class 3 severe obesity due to excess calories with serious comorbidity and body mass index (BMI) of 60.0 to 69.9 in adult (HCC) Cellulitis of right lower extremity Cellulitis and abscess of leg, except foot MARIA TERESA on CPAP Obstructive sleep apnea (adult) (pediatric) Migraine without aura and without status migrainosus, not intractable Migraine without aura, without mention of intractable migraine without mention of status migrainosus Bilateral leg edema Edema Moderate depressed bipolar I disorder (HCC) Bipolar I disorder, most recent episode (or current) depressed, moderate Tapeworm Cestode infection, unspecified Lumbago Rib pain Chest pain, unspecified Screening for depression Encounter for screening examination for other mental health and behavioral disorders documented in this encounter [facility] note* Diagnosis Chronic radicular low back pain- Primary Thoracic or lumbosacral neuritis or radiculitis, unspecified Need for prophylactic vaccination and inoculation against influenza Migraine without aura, without mention of intractable migraine without mention of status migrainosus ASTHMA UNSPECIFIED Unspecified asthma ALLERGIC RHINITIS NOS Allergic rhinitis, cause unspecified Lumbago Cellulitis of right lower extremity Cellulitis and abscess of leg, except foot Bilateral leg edema Edema [facility] [place] [facility]* Diagnosis Chronic radicular low back pain- Primary Thoracic or lumbosacral neuritis or radiculitis, unspecified Need for prophylactic vaccination and inoculation against influenza Migraine without aura, without mention of intractable migraine without mention of status migrainosus ASTHMA UNSPECIFIED Unspecified asthma ALLERGIC RHINITIS NOS Allergic rhinitis, cause unspecified Persistent cough for 3 weeks or longer- Primary Wheezing Persistent cough for 3 weeks or longer [facility] [place] [facility]* Diagnosis Chronic radicular low back pain- Primary Thoracic or lumbosacral neuritis or radiculitis, unspecified Need for prophylactic vaccination and inoculation against influenza Migraine without aura, without mention of intractable migraine without mention of status migrainosus ASTHMA UNSPECIFIED Unspecified asthma ALLERGIC RHINITIS NOS Allergic rhinitis, cause unspecified Restless leg syndrome Restless legs syndrome (RLS) documented in this encounter [facility] note* Diagnosis Chronic radicular low back pain- Primary Thoracic or lumbosacral neuritis or radiculitis, unspecified Need for prophylactic vaccination and inoculation against influenza Migraine without aura, without mention of intractable migraine without mention of status migrainosus ASTHMA UNSPECIFIED Unspecified asthma ALLERGIC RHINITIS NOS Allergic rhinitis, cause unspecified Persistent cough for 3 weeks or longer [facility] [place] [facility]* Diagnosis Chronic radicular low back pain- Primary Thoracic or lumbosacral neuritis or radiculitis, unspecified Need for prophylactic vaccination and inoculation against influenza Migraine without aura, without mention of intractable migraine without mention of status migrainosus ASTHMA UNSPECIFIED Unspecified asthma ALLERGIC RHINITIS NOS Allergic rhinitis, cause unspecified Lumbago Rib pain Chest pain, unspecified [facility] [place] [facility]* Diagnosis Chronic radicular low back pain- Primary Thoracic or lumbosacral neuritis or radiculitis, unspecified Need for prophylactic vaccination and inoculation against influenza Migraine without aura, without mention of intractable migraine without mention of status migrainosus ASTHMA UNSPECIFIED Unspecified asthma ALLERGIC RHINITIS NOS Allergic rhinitis, cause unspecified Respiratory infection- Primary Other diseases of respiratory system, not elsewhere classified documented in this encounter [facility] note* Diagnosis Chronic radicular low back pain- Primary Thoracic or lumbosacral neuritis or radiculitis, unspecified Need for prophylactic vaccination and inoculation against influenza Migraine without aura, without mention of intractable migraine without mention of status migrainosus ASTHMA UNSPECIFIED Unspecified asthma ALLERGIC RHINITIS NOS Allergic rhinitis, cause unspecified Right wrist pain Pain in joint, forearm documented in this encounter [facility] note* Diagnosis Chronic radicular low back pain- Primary Thoracic or lumbosacral neuritis or radiculitis, unspecified Need for prophylactic vaccination and inoculation against influenza Migraine without aura, without mention of intractable migraine without mention of status migrainosus ASTHMA UNSPECIFIED Unspecified asthma ALLERGIC RHINITIS NOS Allergic rhinitis, cause unspecified Generalized abdominal pain Abdominal pain, generalized documented in this encounter [facility] note* Diagnosis Chronic radicular low back pain- Primary Thoracic or lumbosacral neuritis or radiculitis, unspecified Need for prophylactic vaccination and inoculation against influenza Migraine without aura, without mention of intractable migraine without mention of status migrainosus ASTHMA UNSPECIFIED Unspecified asthma ALLERGIC RHINITIS NOS Allergic rhinitis, cause unspecified Encounter for screening mammogram for breast cancer documented in this encounter [facility] note* Diagnosis Chronic radicular low back pain- Primary Thoracic or lumbosacral neuritis or radiculitis, unspecified Need for prophylactic vaccination and inoculation against influenza Migraine without aura, without mention of intractable migraine without mention of status migrainosus ASTHMA UNSPECIFIED Unspecified asthma ALLERGIC RHINITIS NOS Allergic rhinitis, cause unspecified Lumbago documented in this encounter [facility] note* Diagnosis Chronic radicular low back pain- Primary Thoracic or lumbosacral neuritis or radiculitis, unspecified Need for prophylactic vaccination and inoculation against influenza Migraine without aura, without mention of intractable migraine without mention of status migrainosus ASTHMA UNSPECIFIED Unspecified asthma ALLERGIC RHINITIS NOS Allergic rhinitis, cause unspecified Uncontrolled type 2 diabetes mellitus with hyperglycemia (HCC)- Primary Iron deficiency anemia, unspecified iron deficiency anemia type Lumbago Chronic radicular low back pain Thoracic or lumbosacral neuritis or radiculitis, unspecified Class 3 severe obesity due to excess calories with serious comorbidity and body mass index (BMI) of 60.0 to 69.9 in adult ([facility]) Mild intermittent asthma with acute exacerbation Unspecified asthma, with exacerbation Chronic skin ulcer, limited to breakdown of skin ([facility]) [facility] [place] [facility]* Diagnosis Chronic radicular low back pain- Primary Thoracic or lumbosacral neuritis or radiculitis, unspecified Need for prophylactic vaccination and inoculation against influenza Migraine without aura, without mention of intractable migraine without mention of status migrainosus ASTHMA UNSPECIFIED Unspecified asthma ALLERGIC RHINITIS NOS Allergic rhinitis, cause unspecified Lumbago [facility] [place] [facility]* Diagnosis Chronic radicular low back pain- Primary Thoracic or lumbosacral neuritis or radiculitis, unspecified Need for prophylactic vaccination and inoculation against influenza Migraine without aura, without mention of intractable migraine without mention of status migrainosus ASTHMA UNSPECIFIED Unspecified asthma ALLERGIC RHINITIS NOS Allergic rhinitis, cause unspecified Lumbago [facility] [place] [facility]* Diagnosis Chronic radicular low back pain- Primary Thoracic or lumbosacral neuritis or radiculitis, unspecified Need for prophylactic vaccination and inoculation against influenza Migraine without aura, without mention of intractable migraine without mention of status migrainosus ASTHMA UNSPECIFIED Unspecified asthma ALLERGIC RHINITIS NOS Allergic rhinitis, cause unspecified Moderate persistent asthma without complication Unspecified asthma Lumbago [facility] [place] [facility]* Diagnosis Chronic radicular low back pain- Primary Thoracic or lumbosacral neuritis or radiculitis, unspecified Need for prophylactic vaccination and inoculation against influenza Migraine without aura, without mention of intractable migraine without mention of status migrainosus ASTHMA UNSPECIFIED Unspecified asthma ALLERGIC RHINITIS NOS Allergic rhinitis, cause unspecified Lumbago [facility] [place] [facility]* Diagnosis Chronic radicular low back pain- Primary Thoracic or lumbosacral neuritis or radiculitis, unspecified Need for prophylactic vaccination and inoculation against influenza Migraine without aura, without mention of intractable migraine without mention of status migrainosus ASTHMA UNSPECIFIED Unspecified asthma ALLERGIC RHINITIS NOS Allergic rhinitis, cause unspecified Lumbago [facility] [place] [facility]* Diagnosis Chronic radicular low back pain- Primary Thoracic or lumbosacral neuritis or radiculitis, unspecified Need for prophylactic vaccination and inoculation against influenza Migraine without aura, without mention of intractable migraine without mention of status migrainosus ASTHMA UNSPECIFIED Unspecified asthma ALLERGIC RHINITIS NOS Allergic rhinitis, cause unspecified Uncontrolled type 2 diabetes mellitus with hyperglycemia (HCC) Moderate persistent asthma with exacerbation Unspecified asthma, with exacerbation [facility] [place] [facility]* Diagnosis Chronic radicular low back pain- Primary Thoracic or lumbosacral neuritis or radiculitis, unspecified Need for prophylactic vaccination and inoculation against influenza Migraine without aura, without mention of intractable migraine without mention of status migrainosus ASTHMA UNSPECIFIED Unspecified asthma ALLERGIC RHINITIS NOS Allergic rhinitis, cause unspecified Tic like phenomenon- Primary Tic disorder, unspecified Lumbago Uncontrolled type 2 diabetes mellitus with hyperglycemia (HCC) Intermittent asthma without complication, unspecified asthma severity Obesity, Class III, BMI >= 40 Morbid obesity Non-seasonal allergic rhinitis, unspecified trigger [facility] [place] [facility]* Diagnosis Chronic radicular low back pain- Primary Thoracic or lumbosacral neuritis or radiculitis, unspecified Need for prophylactic vaccination and inoculation against influenza Migraine without aura, without mention of intractable migraine without mention of status migrainosus ASTHMA UNSPECIFIED Unspecified asthma ALLERGIC RHINITIS NOS Allergic rhinitis, cause unspecified Type 2 diabetes mellitus without complication, without long-term current use of insulin (HCC)- Primary Thrombocytopenia (HCC) Thrombocytopenia, unspecified MARIA TERESA on CPAP Obstructive sleep apnea (adult) (pediatric) Numbness and tingling in both hands Anemia, unspecified type Bilateral leg edema Edema Migraine without aura and without status migrainosus, not intractable Migraine without aura, without mention of intractable migraine without mention of status migrainosus Fatty liver Other chronic nonalcoholic liver disease [facility] [place] [facility]* Diagnosis Chronic radicular low back pain- Primary Thoracic or lumbosacral neuritis or radiculitis, unspecified Need for prophylactic vaccination and inoculation against influenza Migraine without aura, without mention of intractable migraine without mention of status migrainosus ASTHMA UNSPECIFIED Unspecified asthma ALLERGIC RHINITIS NOS Allergic rhinitis, cause unspecified Thrombocytopenia (HCC)- Primary Thrombocytopenia, unspecified [facility] [place] [facility]* Diagnosis Chronic radicular low back pain- Primary Thoracic or lumbosacral neuritis or radiculitis, unspecified Need for prophylactic vaccination and inoculation against influenza Migraine without aura, without mention of intractable migraine without mention of status migrainosus ASTHMA UNSPECIFIED Unspecified asthma ALLERGIC RHINITIS NOS Allergic rhinitis, cause unspecified Controlled type 2 diabetes mellitus without complication, without long-term current use of insulin ([facility]) [facility] [place] [facility]* Diagnosis Chronic radicular low back pain- Primary Thoracic or lumbosacral neuritis or radiculitis, unspecified Need for prophylactic vaccination and inoculation against influenza Migraine without aura, without mention of intractable migraine without mention of status migrainosus ASTHMA UNSPECIFIED Unspecified asthma ALLERGIC RHINITIS NOS Allergic rhinitis, cause unspecified Acute midline low back pain with left-sided sciatica- Primary [facility] [place] [facility]* Diagnosis Chronic radicular low back pain- Primary Thoracic or lumbosacral neuritis or radiculitis, unspecified Need for prophylactic vaccination and inoculation against influenza Migraine without aura, without mention of intractable migraine without mention of status migrainosus ASTHMA UNSPECIFIED Unspecified asthma ALLERGIC RHINITIS NOS Allergic rhinitis, cause unspecified Controlled type 2 diabetes mellitus without complication, without long-term current use of insulin ([facility]) [facility] [place] [facility]* Diagnosis Chronic radicular low back pain- Primary Thoracic or lumbosacral neuritis or radiculitis, unspecified Need for prophylactic vaccination and inoculation against influenza Migraine without aura, without mention of intractable migraine without mention of status migrainosus ASTHMA UNSPECIFIED Unspecified asthma ALLERGIC RHINITIS NOS Allergic rhinitis, cause unspecified Lumbago [facility] [place] [facility]* Diagnosis Chronic radicular low back pain- Primary Thoracic or lumbosacral neuritis or radiculitis, unspecified Need for prophylactic vaccination and inoculation against influenza Migraine without aura, without mention of intractable migraine without mention of status migrainosus ASTHMA UNSPECIFIED Unspecified asthma ALLERGIC RHINITIS NOS Allergic rhinitis, cause unspecified Controlled type 2 diabetes mellitus without complication, without long-term current use of insulin ([facility]) [facility] [place] [facility]* Diagnosis Chronic radicular low back pain- Primary Thoracic or lumbosacral neuritis or radiculitis, unspecified Need for prophylactic vaccination and inoculation against influenza Migraine without aura, without mention of intractable migraine without mention of status migrainosus ASTHMA UNSPECIFIED Unspecified asthma ALLERGIC RHINITIS NOS Allergic rhinitis, cause unspecified Controlled type 2 diabetes mellitus without complication, without long-term current use of insulin (HCC) [facility] [place] [facility]* Diagnosis Chronic radicular low back pain- Primary Thoracic or lumbosacral neuritis or radiculitis, unspecified Need for prophylactic vaccination and inoculation against influenza Migraine without aura, without mention of intractable migraine without mention of status migrainosus ASTHMA UNSPECIFIED Unspecified asthma ALLERGIC RHINITIS NOS Allergic rhinitis, cause unspecified Thrombocytopenia- Primary Thrombocytopenia, unspecified Fatty liver Other chronic nonalcoholic liver disease [facility] [place] [facility]* Diagnosis Chronic radicular low back pain- Primary Thoracic or lumbosacral neuritis or radiculitis, unspecified Need for prophylactic vaccination and inoculation against influenza Migraine without aura, without mention of intractable migraine without mention of status migrainosus ASTHMA UNSPECIFIED Unspecified asthma ALLERGIC RHINITIS NOS Allergic rhinitis, cause unspecified Chronic midline low back pain, unspecified whether sciatica present- Primary Radiculopathy of lumbar region Thoracic or lumbosacral neuritis or radiculitis, unspecified Lumbago [facility] [place] [facility]* Diagnosis Chronic radicular low back pain- Primary Thoracic or lumbosacral neuritis or radiculitis, unspecified Need for prophylactic vaccination and inoculation against influenza Migraine without aura, without mention of intractable migraine without mention of status migrainosus ASTHMA UNSPECIFIED Unspecified asthma ALLERGIC RHINITIS NOS Allergic rhinitis, cause unspecified MARIA TERESA on CPAP- Primary Obstructive sleep apnea (adult) (pediatric) Chronic midline low back pain with bilateral sciatica Radiculopathy of lumbar region Thoracic or lumbosacral neuritis or radiculitis, unspecified Uncontrolled type 2 diabetes mellitus with hyperglycemia (HCC) Obesity, Class III, BMI >= 40 Morbid obesity Anemia, unspecified type [facility] [place] [facility]* Diagnosis Chronic radicular low back pain- Primary Thoracic or lumbosacral neuritis or radiculitis, unspecified Need for prophylactic vaccination and inoculation against influenza Migraine without aura, without mention of intractable migraine without mention of status migrainosus ASTHMA UNSPECIFIED Unspecified asthma ALLERGIC RHINITIS NOS Allergic rhinitis, cause unspecified Lumbago [facility] [place] [facility]* Diagnosis Chronic radicular low back pain- Primary Thoracic or lumbosacral neuritis or radiculitis, unspecified Need for prophylactic vaccination and inoculation against influenza Migraine without aura, without mention of intractable migraine without mention of status migrainosus ASTHMA UNSPECIFIED Unspecified asthma ALLERGIC RHINITIS NOS Allergic rhinitis, cause unspecified Chronic midline low back pain with bilateral sciatica [facility] [place] [facility]* Diagnosis Chronic radicular low back pain- Primary Thoracic or lumbosacral neuritis or radiculitis, unspecified Need for prophylactic vaccination and inoculation against influenza Migraine without aura, without mention of intractable migraine without mention of status migrainosus ASTHMA UNSPECIFIED Unspecified asthma ALLERGIC RHINITIS NOS Allergic rhinitis, cause unspecified MARIA TERESA on CPAP- Primary Obstructive sleep apnea (adult) (pediatric) Rib pain Chest pain, unspecified Chronic midline low back pain with bilateral sciatica Chronic radicular low back pain Thoracic or lumbosacral neuritis or radiculitis, unspecified General weakness Other malaise and fatigue Gait instability Abnormality of gait Intermittent asthma without complication, unspecified asthma severity (HCC) Hyperlipidemia with target LDL less than 100 Other and unspecified hyperlipidemia [facility] [place] [facility]* Diagnosis Chronic radicular low back pain- Primary Thoracic or lumbosacral neuritis or radiculitis, unspecified Need for prophylactic vaccination and inoculation against influenza Migraine without aura, without mention of intractable migraine without mention of status migrainosus ASTHMA UNSPECIFIED Unspecified asthma ALLERGIC RHINITIS NOS Allergic rhinitis, cause unspecified Lumbago [facility] [place] [facility]* Diagnosis Chronic radicular low back pain- Primary Thoracic or lumbosacral neuritis or radiculitis, unspecified Need for prophylactic vaccination and inoculation against influenza Migraine without aura, without mention of intractable migraine without mention of status migrainosus ASTHMA UNSPECIFIED Unspecified asthma ALLERGIC RHINITIS NOS Allergic rhinitis, cause unspecified Chronic midline low back pain with bilateral sciatica documented [facility] [place] [facility]* Diagnosis Chronic radicular low back pain- Primary Thoracic or lumbosacral neuritis or radiculitis, unspecified Need for prophylactic vaccination and inoculation against influenza Migraine without aura, without mention of intractable migraine without mention of status migrainosus ASTHMA UNSPECIFIED Unspecified asthma ALLERGIC RHINITIS NOS Allergic rhinitis, cause unspecified Chronic midline low back pain with bilateral sciatica documented [facility] [place] [facility]* Diagnosis Chronic radicular low back pain- Primary Thoracic or lumbosacral neuritis or radiculitis, unspecified Need for prophylactic vaccination and inoculation against influenza Migraine without aura, without mention of intractable migraine without mention of status migrainosus ASTHMA UNSPECIFIED Unspecified asthma ALLERGIC RHINITIS NOS Allergic rhinitis, cause unspecified Chronic midline low back pain with bilateral sciatica [facility] [place] [facility]* Diagnosis Chronic radicular low back pain- Primary Thoracic or lumbosacral neuritis or radiculitis, unspecified Need for prophylactic vaccination and inoculation against influenza Migraine without aura, without mention of intractable migraine without mention of status migrainosus ASTHMA UNSPECIFIED Unspecified asthma ALLERGIC RHINITIS NOS Allergic rhinitis, cause unspecified Chronic midline low back pain with bilateral sciatica [facility] [place] [facility]* Diagnosis Chronic radicular low back pain- Primary Thoracic or lumbosacral neuritis or radiculitis, unspecified Need for prophylactic vaccination and inoculation against influenza Migraine without aura, without mention of intractable migraine without mention of status migrainosus ASTHMA UNSPECIFIED Unspecified asthma ALLERGIC RHINITIS NOS Allergic rhinitis, cause unspecified Chronic midline low back pain with bilateral sciatica [facility] [place] [facility]* Diagnosis Chronic radicular low back pain- Primary Thoracic or lumbosacral neuritis or radiculitis, unspecified Need for prophylactic vaccination and inoculation against influenza Migraine without aura, without mention of intractable migraine without mention of status migrainosus ASTHMA UNSPECIFIED Unspecified asthma ALLERGIC RHINITIS NOS Allergic rhinitis, cause unspecified Uncontrolled type 2 diabetes mellitus with hyperglycemia (HCC) documented [facility] [place] [facility]* Diagnosis Chronic radicular low back pain- Primary Thoracic or lumbosacral neuritis or radiculitis, unspecified Need for prophylactic vaccination and inoculation against influenza Migraine without aura, without mention of intractable migraine without mention of status migrainosus ASTHMA UNSPECIFIED Unspecified asthma ALLERGIC RHINITIS NOS Allergic rhinitis, cause unspecified Chronic midline low back pain, unspecified whether sciatica present- Primary Radiculopathy of lumbar region Thoracic or lumbosacral neuritis or radiculitis, unspecified [facility] [place] [facility]* Diagnosis Chronic radicular low back pain- Primary Thoracic or lumbosacral neuritis or radiculitis, unspecified Need for prophylactic vaccination and inoculation against influenza Migraine without aura, without mention of intractable migraine without mention of status migrainosus ASTHMA UNSPECIFIED Unspecified asthma ALLERGIC RHINITIS NOS Allergic rhinitis, cause unspecified Uncontrolled type 2 diabetes mellitus with hyperglycemia (HCC) documented in this encounter [facility] note* Diagnosis Chronic radicular low back pain- Primary Thoracic or lumbosacral neuritis or radiculitis, unspecified Need for prophylactic vaccination and inoculation against influenza Migraine without aura, without mention of intractable migraine without mention of status migrainosus ASTHMA UNSPECIFIED Unspecified asthma ALLERGIC RHINITIS NOS Allergic rhinitis, cause unspecified Uncontrolled type 2 diabetes mellitus with hyperglycemia (HCC) Lumbago [facility] [place] [facility]* Diagnosis Chronic radicular low back pain- Primary Thoracic or lumbosacral neuritis or radiculitis, unspecified Need for prophylactic vaccination and inoculation against influenza Migraine without aura, without mention of intractable migraine without mention of status migrainosus ASTHMA UNSPECIFIED Unspecified asthma ALLERGIC RHINITIS NOS Allergic rhinitis, cause unspecified Chronic left-sided low back pain, unspecified whether sciatica present- Primary documented in this encounter [facility] note* Diagnosis Chronic radicular low back pain- Primary Thoracic or lumbosacral neuritis or radiculitis, unspecified Need for prophylactic vaccination and inoculation against influenza Migraine without aura, without mention of intractable migraine without mention of status migrainosus ASTHMA UNSPECIFIED Unspecified asthma ALLERGIC RHINITIS NOS Allergic rhinitis, cause unspecified Lumbago [facility] [place] [facility]* Diagnosis Chronic radicular low back pain- Primary Thoracic or lumbosacral neuritis or radiculitis, unspecified Need for prophylactic vaccination and inoculation against influenza Migraine without aura, without mention of intractable migraine without mention of status migrainosus ASTHMA UNSPECIFIED Unspecified asthma ALLERGIC RHINITIS NOS Allergic rhinitis, cause unspecified Chronic midline low back pain with bilateral sciatica documented in this encounter [facility] note* Diagnosis Chronic radicular low back pain- Primary Thoracic or lumbosacral neuritis or radiculitis, unspecified Need for prophylactic vaccination and inoculation against influenza Migraine without aura, without mention of intractable migraine without mention of status migrainosus ASTHMA UNSPECIFIED Unspecified asthma ALLERGIC RHINITIS NOS Allergic rhinitis, cause unspecified Chronic left-sided low back pain, unspecified whether sciatica present- Primary [facility] [place] [facility]* Diagnosis Chronic radicular low back pain- Primary Thoracic or lumbosacral neuritis or radiculitis, unspecified Need for prophylactic vaccination and inoculation against influenza Migraine without aura, without mention of intractable migraine without mention of status migrainosus ASTHMA UNSPECIFIED Unspecified asthma ALLERGIC RHINITIS NOS Allergic rhinitis, cause unspecified Chronic midline low back pain with bilateral sciatica Bilateral leg edema Edema [facility] [place] [facility]* Diagnosis Chronic radicular low back pain- Primary Thoracic or lumbosacral neuritis or radiculitis, unspecified Need for prophylactic vaccination and inoculation against influenza Migraine without aura, without mention of intractable migraine without mention of status migrainosus ASTHMA UNSPECIFIED Unspecified asthma ALLERGIC RHINITIS NOS Allergic rhinitis, cause unspecified Chronic midline low back pain with bilateral sciatica [facility] [place] [facility]* Diagnosis Chronic radicular low back pain- Primary Thoracic or lumbosacral neuritis or radiculitis, unspecified Need for prophylactic vaccination and inoculation against influenza Migraine without aura, without mention of intractable migraine without mention of status migrainosus ASTHMA UNSPECIFIED Unspecified asthma ALLERGIC RHINITIS NOS Allergic rhinitis, cause unspecified Bilateral leg edema Edema [facility] [place] [facility]* Diagnosis Chronic radicular low back pain- Primary Thoracic or lumbosacral neuritis or radiculitis, unspecified Need for prophylactic vaccination and inoculation against influenza Migraine without aura, without mention of intractable migraine without mention of status migrainosus ASTHMA UNSPECIFIED Unspecified asthma ALLERGIC RHINITIS NOS Allergic rhinitis, cause unspecified Migraine without aura and without status migrainosus, not intractable Migraine without aura, without mention of intractable migraine without mention of status migrainosus [facility] [place] [facility]* Diagnosis Chronic radicular low back pain- Primary Thoracic or lumbosacral neuritis or radiculitis, unspecified Need for prophylactic vaccination and inoculation against influenza Migraine without aura, without mention of intractable migraine without mention of status migrainosus ASTHMA UNSPECIFIED Unspecified asthma ALLERGIC RHINITIS NOS Allergic rhinitis, cause unspecified Bilateral leg edema Edema [facility] [place] [facility]* Diagnosis Chronic radicular low back pain- Primary Thoracic or lumbosacral neuritis or radiculitis, unspecified Need for prophylactic vaccination and inoculation against influenza Migraine without aura, without mention of intractable migraine without mention of status migrainosus ASTHMA UNSPECIFIED Unspecified asthma ALLERGIC RHINITIS NOS Allergic rhinitis, cause unspecified Encounter for long-term current use of medication- Primary Chronic midline low back pain with bilateral sciatica [facility] [place] [facility]* Diagnosis Chronic radicular low back pain- Primary Thoracic or lumbosacral neuritis or radiculitis, unspecified Need for prophylactic vaccination and inoculation against influenza Migraine without aura, without mention of intractable migraine without mention of status migrainosus ASTHMA UNSPECIFIED Unspecified asthma ALLERGIC RHINITIS NOS Allergic rhinitis, cause unspecified Chronic midline low back pain with bilateral sciatica documented in this encounter [facility] note* Diagnosis Chronic radicular low back pain- Primary Thoracic or lumbosacral neuritis or radiculitis, unspecified Need for prophylactic vaccination and inoculation against influenza Migraine without aura, without mention of intractable migraine without mention of status migrainosus ASTHMA UNSPECIFIED Unspecified asthma ALLERGIC RHINITIS NOS Allergic rhinitis, cause unspecified Intermittent asthma without complication, unspecified asthma severity (HCC) [facility] [place] [facility]* Diagnosis Chronic radicular low back pain- Primary Thoracic or lumbosacral neuritis or radiculitis, unspecified Need for prophylactic vaccination and inoculation against influenza Migraine without aura, without mention of intractable migraine without mention of status migrainosus ASTHMA UNSPECIFIED Unspecified asthma ALLERGIC RHINITIS NOS Allergic rhinitis, cause unspecified Chronic midline low back pain with bilateral sciatica documented in this encounter [facility] note* Diagnosis Chronic radicular low back pain- Primary Thoracic or lumbosacral neuritis or radiculitis, unspecified Need for prophylactic vaccination and inoculation against influenza Migraine without aura, without mention of intractable migraine without mention of status migrainosus ASTHMA UNSPECIFIED Unspecified asthma ALLERGIC RHINITIS NOS Allergic rhinitis, cause unspecified Chronic midline low back pain with bilateral sciatica [facility] [place] [facility]* Diagnosis Chronic radicular low back pain- Primary Thoracic or lumbosacral neuritis or radiculitis, unspecified Need for prophylactic vaccination and inoculation against influenza Migraine without aura, without mention of intractable migraine without mention of status migrainosus ASTHMA UNSPECIFIED Unspecified asthma ALLERGIC RHINITIS NOS Allergic rhinitis, cause unspecified Chronic left-sided low back pain, unspecified whether sciatica present- Primary [facility] [place] [facility]* Diagnosis Chronic radicular low back pain- Primary Thoracic or lumbosacral neuritis or radiculitis, unspecified Need for prophylactic vaccination and inoculation against influenza Migraine without aura, without mention of intractable migraine without mention of status migrainosus ASTHMA UNSPECIFIED Unspecified asthma ALLERGIC RHINITIS NOS Allergic rhinitis, cause unspecified Chronic midline low back pain with bilateral sciatica [facility] [place] [facility]* Diagnosis Chronic radicular low back pain- Primary Thoracic or lumbosacral neuritis or radiculitis, unspecified Need for prophylactic vaccination and inoculation against influenza Migraine without aura, without mention of intractable migraine without mention of status migrainosus ASTHMA UNSPECIFIED Unspecified asthma ALLERGIC RHINITIS NOS Allergic rhinitis, cause unspecified Type 2 diabetes mellitus with other skin ulcer, without long-term current use of insulin ([facility])- Primary Screening for diabetic retinopathy Screening for other eye conditions Diabetes mellitus type 2, controlled, without complications ([facility]) Type II or unspecified type diabetes mellitus without mention of complication, not stated as uncontrolled Screening for depression Encounter for screening examination for other mental health and behavioral disorders Encounter for immunization Need for other specified prophylactic vaccination against single bacterial disease Moderate depressed bipolar I disorder (HCC) Bipolar I disorder, most recent episode (or current) depressed, moderate Platelet disorder (HCC) Qualitative platelet defects Chronic midline low back pain, unspecified whether sciatica present Radiculopathy of lumbar region Thoracic or lumbosacral neuritis or radiculitis, unspecified Migraine without aura and without status migrainosus, not intractable Migraine without aura, without mention of intractable migraine without mention of status migrainosus Uncontrolled type 2 diabetes mellitus with hyperglycemia (HCC) Grief Adjustment disorder with depressed mood Obesity, Class III, BMI >= 40 Morbid obesity Nicotine dependence, cigarettes, uncomplicated [facility] Diagnosis Chronic radicular low back pain- Primary Thoracic or lumbosacral neuritis or radiculitis, unspecified Need for prophylactic vaccination and inoculation against influenza Migraine without aura, without mention of intractable migraine without mention of status migrainosus ASTHMA UNSPECIFIED Unspecified asthma ALLERGIC RHINITIS NOS Allergic rhinitis, cause unspecified Restless leg syndrome Restless legs syndrome (RLS) documented in this encounter [facility] note* Diagnosis Chronic radicular low back pain- Primary Thoracic or lumbosacral neuritis or radiculitis, unspecified Need for prophylactic vaccination and inoculation against influenza Migraine without aura, without mention of intractable migraine without mention of status migrainosus ASTHMA UNSPECIFIED Unspecified asthma ALLERGIC RHINITIS NOS Allergic rhinitis, cause unspecified Chronic midline low back pain with bilateral sciatica documented in this encounter [facility] note* Diagnosis Chronic radicular low back pain- Primary Thoracic or lumbosacral neuritis or radiculitis, unspecified Need for prophylactic vaccination and inoculation against influenza Migraine without aura, without mention of intractable migraine without mention of status migrainosus ASTHMA UNSPECIFIED Unspecified asthma ALLERGIC RHINITIS NOS Allergic rhinitis, cause unspecified Generalized abdominal pain Abdominal pain, generalized documented in this encounter [facility] note* Diagnosis Chronic radicular low back pain- Primary Thoracic or lumbosacral neuritis or radiculitis, unspecified Need for prophylactic vaccination and inoculation against influenza Migraine without aura, without mention of intractable migraine without mention of status migrainosus ASTHMA UNSPECIFIED Unspecified asthma ALLERGIC RHINITIS NOS Allergic rhinitis, cause unspecified Moderate persistent asthma without complication (HCC) Unspecified asthma Lumbago documented in this encounter [facility] note* Diagnosis Chronic radicular low back pain- Primary Thoracic or lumbosacral neuritis or radiculitis, unspecified Need for prophylactic vaccination and inoculation against influenza Migraine without aura, without mention of intractable migraine without mention of status migrainosus ASTHMA UNSPECIFIED Unspecified asthma ALLERGIC RHINITIS NOS Allergic rhinitis, cause unspecified Moderate persistent asthma without complication (HCC) Unspecified asthma Lumbago documented in this encounter [facility] Discharge instructions Additional Instructions 1. Please keep your surgical dressing clean dry and intact. Do not remove. Do not get it wet. 2. Continue rest ice and elevate per your postoperative instructions that were given to you at the day of your surgical consultation while in office. 3. Please take all pain medication and prescriptions as written. 4. If you are a diabetic patient please continue tight glucose control while in the postoperative phase. 5. Please continue to follow-up with all your doctors visits prior and after surgery. 6. Please reach out to Dr. Lord, through the paging system in the hospital or private office with any questions or concerns. 7. Thank you for letting me be involved in your surgical care![facility] Work Phone: Hospital Discharge instructionsAdditional Instructions Please double up your Lasix (take 40 mg twice a day) for the next 5 days. You been given additional prescription for this. In addition to being given medication for treatment for her urinary tract infection. If you have worsening symptoms please return to the emergency room. Your workup otherwise was quite reassuring today. Continue to take Tylenol alternated with ibuprofen as needed for pain.[facility] Work Phone: Reason for referral (narrative)* Diagnostic Procedure Only (Routine) - Pending Review Specialty Diagnoses / Procedures Referred By Sania newell Referred To Contact BR IMAGING Diagnoses Encounter for screening mammogram for breast cancer Procedures NEREIDA SCREENING SCREENING MAMMOGRAPHY BI 2-VIEW BREAST INC CAD Rodri Chauhan MD [address] [place] [id number] [facility] [address] [place] [address] Referral ID Status Reason Start Date Expiration Date Visits Requested Visits Authorized [id number] Pending Review Auto-Generat ed Referral 2 10/06/2023 1 1 [facility] for referral (narrative)* Diagnostic Procedure Only (Routine) - Authorized Specialty Diagnoses / Procedures Referred By Sania newell Referred To Contact US IMAGING Diagnoses Cellulitis of right lower extremity Bilateral leg edema Procedures US DVT LOWER RIGHT DUP-SCAN XTR VEINS UNILATERAL/LIMITED STUDY Zunilda Jaramillo APRN.SENIOR TRAINER [address] [place] [address] [facility] Referral ID Status Reason Start Date Expiration Date Visits Requested Visits Authorized [id number] Authorized Auto-Generat ed Referral 02/19/2023 03/20/2024 1 1 * Consult, Test, Treat (Routine) - Authorized Specialty Diagnoses / Procedures Referred By Sania newell Referred To Contact Orthopedics Diagnoses Chronic radicular low back pain Chronic pain of both knees Procedures CONSULT TO ORTHOPAEDICS OFFICE/OUTPATIENT [facility] 60-74 MINUTES Zunilda Jaramillo APRN.CNP [address] [place] [address], [place] [address] Referral ID Status Reason Start Date Expiration Date Visits Requested Visits Authorized [id number] Authorized PCP Requested Referral 02/19/2023 02/19/2024 1 1 * Medication Prior Authorization - Closed Specialty Diagnoses / Procedures Referred By Contlouis t Referred To Contact Diagnoses Cellulitis of right lower extremity Bilateral leg edema Zunilda Jaramillo APRN.CNP [facility] [place] [id number] Referral ID Status Reason Start Date Expiration Date Visits Re quested Visits Authorized [id number] Closed 1 1 * Consult, Test, Treat (Routine) - Authorized Specialty Diagnoses / Procedures Referred By Contlouis t Referred To Contact Podiatry Diagnoses Controlled type 2 diabetes mellitus without complication, without long-term current use of insulin ([facility]) Procedures CONSULT TO PODIATRY OFFICE/OUTPATIENT [facility] MDM 60-74 MINUTES Zunilda Jaramillo APRN.CNP [address] [place] [address] Referral ID Status Reason Start Date Expiration Date Visits Requested Visits Authorized [id number] Authorized PCP Requested Referral 02/19/2023 02/19/2024 1 1 [facility] for referral (narrative)* Diagnostic Procedure Only (Routine) - Pending Review Specialty Diagnoses / Procedures Referred By Contac t Referred To Contact XR IMAGING Diagnoses Bilateral foot pain Procedures XR FOOT GENERAL 3V AP/LAT/OBL BILATERAL RADEX FOOT COMPLETE MINIMUM 3 VIEWS [place] Bui [address] [place] [address] [facility] Referral ID Status Reason Start Date Expiration Date Visits Requested Visits Authorized [id number] Pending Review Auto-Generat ed Referral 02/20/2023 03/21/2024 1 1 [facility] for referral (narrative)* Diagnostic Procedure Only (Routine) - Closed Specialty Diagnoses / Procedures Referred By Contac t Referred To Contact US IMAGING Diagnoses Cellulitis of right lower extremity Bilateral leg edema Procedures US DVT LOWER RIGHT DUP-SCAN XTR VEINS UNILATERAL/LIMITED STUDY Zunilda Jaramillo APRN.SENIOR TRAINER [address] [place] [address] [place] [address] Referral ID Status Reason Start Date Expiration Date V isits Requested Visits Authorized [id number] Closed Auto-Generate d Referral 02/19/2023 03/20/2024 1 1 [facility] for referral (narrative)* Diagnostic Procedure Only (Urgent) - Closed Specialty Diagnoses / Procedures Referred By Contac t Referred To Contact XR IMAGING Diagnoses Right wrist pain Procedures XR WRIST INJURY 4V PA/LAT/OBL/SCAPH RIGHT RADEX WRIST COMPLETE MINIMUM 3 VIEWS Connie Strong APRN.SENIOR TRAINER [address] [place] [address] [place] [address] Referral ID Status Reason Start Date Expiration Date V isits Requested Visits Authorized [id number] Closed Auto-Generate d Referral 07/23/2023 08/21/2024 1 1 [facility] for referral (narrative)* Diagnostic Procedure Only (Routine) - Pending Review Specialty Diagnoses / Procedures Referred By Contac t Referred To Contact XR IMAGING Diagnoses Left knee pain, unspecified chronicity Procedures XR KNEE GENERAL 4V AP BOTH/PA BOTH/LAT/MERC LEFT RADIOLOGIC EXAM KNEE COMPLETE 4/MORE VIEWS Krzysztof Hester V, DO [address] [place] [address] [place] [address] Referral ID Status Reason Start Date Expiration Date Visits Requested Visits Authorized [id number] Pending Review Auto-Generat ed Referral 02/19/2024 03/20/2025 1 1 [facility] for referral (narrative)* Diagnostic Procedure Only (Urgent) - Closed Specialty Diagnoses / Procedures Referred By Sania newell Referred To Contact XR IMAGING Diagnoses Right wrist pain Procedures XR WRIST INJURY 4V PA/LAT/OBL/SCAPH RIGHT RADEX WRIST COMPLETE MINIMUM 3 VIEWS Connie Strong APRN.SENIOR TRAINER [address] [place] [address] [place] [address] Referral ID Status Reason Start Date Expiration Date V isits Requested Visits Authorized [id number] Closed Auto-Generate d Referral 07/23/2023 08/21/2024 1 1 [facility] for referral (narrative)* Diagnostic Procedure Only (Routine) - New Request Specialty Diagnoses / Procedures Referred By Sania newell Referred To Contact BR IMAGING Diagnoses Encounter for screening mammogram for breast cancer Procedures NEREIDA SCREENING W JOSEMANUEL SCREENING DIGITAL BREAST TOMOSYNTHESIS BI SCREENING MAMMOGRAPHY BI 2-VIEW BREAST INC CAD Rodri Chauhan MD [address] [place] [address] [facility] [address] [place] [address] Referral ID Status Reason Start Date Expiration Date Visits Requested Visits Authorized [id number] New Request Auto-Generat ed Referral 4 08/15/2025 1 1 [facility] for referral (narrative)No reason for referral information [facility] Work Phone: Reason for visit Narrative* Diagnostic Procedure Only (Routine) - Closed Specialty Diagnoses / Procedures Referred By Sania newell Referred To Contact US IMAGING Diagnoses Cellulitis of right lower extremity Bilateral leg edema Procedures US DVT LOWER RIGHT DUP-SCAN XTR VEINS UNILATERAL/LIMITED STUDY Zunilda Jaramillo APRN.SENIOR TRAINER [address] [place] [address] [place] [address] Referral ID Status Reason Start Date Expiration Date V isits Requested Visits Authorized [id number] Closed Auto-Generate d Referral 02/19/2023 03/20/2024 1 1 [facility] for visit Narrative* Diagnostic Procedure Only (Urgent) - Closed Specialty Diagnoses / Procedures Referred By Contac t Referred To Contact XR IMAGING Diagnoses Right wrist pain Procedures XR WRIST INJURY 4V PA/LAT/OBL/SCAPH RIGHT RADEX WRIST COMPLETE MINIMUM 3 VIEWS Connie Strong APRN.SENIOR TRAINER [address] [place] [address] [place] [address] Referral ID Status Reason Start Date Expiration Date V isits Requested Visits Authorized [id number] Closed Auto-Generate d Referral 07/23/2023 08/21/2024 1 1 [facility] Summary Purpose Family History No Family History Records Found Relationship Condition Age at Onset Recorded Date/T aashish Unknown Family History?Diabe jonathan, Heart Disease Unknown July 01, 2019 3:48pm Family History?No pe rtinent history Unknown February 26, 2018 12:30pm Family History?No pe rtinent history Unknown February 03, 2019 5:26pm Relationship Condition Age at Onset Recorded Date/T aashish Unknown Family History?Diabe jonathan, Heart Disease Unknown July 01, 2019 2:48pm Family History?No pe rtinent history Unknown February 26, 2018 11:30am Family History?No pe rtinent history Unknown February 03, 2019 4:26pm Advance Directives No Advanced Directives Records FoundDocuments on File Type Date Recorded 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 Advance Directive(s) 03/26/2018 7:20 PM Advance Directive Response Recorded Date/ Time Advance Directives No October 03, 2016 10:23am Living Will No June 01, 2022 6:00pm Power of Avionics Integration Engineer No May 6:00pm Advance Directive Response Recorded Date/ Time Advance Directives No October 03, 2016 9:23am Living Will No September 07, 9:31pm Power of Avionics Integration Engineer No September 07, 2022 9:31pm Advance Directive Response Recorded Date/ Time Advance Directives No October 03, 2016 10:23am Living Will No December 09, 2022 2:35pm Power of Avionics Integration Engineer No December 09 2:35pm Advance Directive Response Recorded Date/ Time Advance Directives No October 03, 2016 9:23am Living Will No December 09, 2022 1:35pm Power of Avionics Integration Engineer No December 09 1:35pm Advance Directive Response Recorded Date/ Time Advance Directives No October 03, 2016 9:23am Living Will No September 25 8:36am Power of Avionics Integration Engineer No September 25 024 8:36am Advance Directive Response Recorded Date/ Time Advance Directives No October 03, 2016 10:23am Living Will No September 25 9:36am Power of Avionics Integration Engineer No September 25 9:36am Advance Directive Response Recorded Date/ Time Living Will No August 17 1:42am Do you have a Healthcare Power of Avionics Integration Engineer? No August 17, 2024 1:42am Living Will No November 15, 2024 3:15am Do you have a Healthcare Power of Avionics Integration Engineer? No November 15, 2024 3:15am Living Will No December 15, 2024 12:33pm Do you have a Healthcare Power of Avionics Integration Engineer? No December 15, 2024 12:33pm Living Will No August 17 1:25am Do you have a Healthcare Power of Avionics Integration Engineer? No August 17, 2024 1:25am Living Will No September 17 1:23am Do you have a Healthcare Power of Avionics Integration Engineer? No September 17, 2024 1:23am Living Will No October 18 2:29am Do you have a Healthcare Power of Avionics Integration Engineer? No October 18, 2024 2:29am Living Will No October 18 2:55am Do you have a Healthcare Power of Avionics Integration Engineer? No October 18, 2024 2:55am Advance Directives No October 03, 2016 10:23am Advance Directive Response Recorded Date/ Time Living Will No November 15, 2024 3:15am Do you have a Healthcare Power of Avionics Integration Engineer? No November 15, 2024 3:15am Living Will No December 15, 2024 12:33pm Do you have a Healthcare Power of Avionics Integration Engineer? No December 15, 2024 12:33pm Living Will No December 16, 2024 12:37am Do you have a Healthcare Power of Avionics Integration Engineer? No December 16, 2024 12:37am Living Will No September 17 1:23am Do you have a Healthcare Power of Avionics Integration Engineer? No September 17, 2024 1:23am Living Will No October 18 2:29am Do you have a Healthcare Power of Avionics Integration Engineer? No October 18, 2024 2:29am Living Will No October 18 2:55am Do you have a Healthcare Power of Avionics Integration Engineer? No October 18, 2024 2:55am Advance Directives No October 03, 2016 10:23am Advance Directive Response Recorded Date/ Time Living Will No November 15, 2024 3:15am Do you have a Healthcare Power of Avionics Integration Engineer? No November 15, 2024 3:15am Living Will No December 15, 2024 12:33pm Do you have a Healthcare Power of Avionics Integration Engineer? No December 15, 2024 12:33pm Living Will No December 16, 2024 12:37am Do you have a Healthcare Power of Avionics Integration Engineer? No December 16, 2024 12:37am Living Will No October 18 2:29am Do you have a Healthcare Power of Avionics Integration Engineer? No October 18, 2024 2:29am Living Will No October 18 2:55am Do you have a Healthcare Power of Avionics Integration Engineer? No October 18, 2024 2:55am Advance Directives No October 03, 2016 10:23am Advance Directive Response Recorded Date/ Time Living Will No November 15, 2024 3:15am Do you have a Healthcare Power of Avionics Integration Engineer? No November 15, 2024 3:15am Living Will No December 15, 2024 12:33pm Do you have a Healthcare Power of Avionics Integration Engineer? No December 15, 2024 12:33pm Living Will No December 16, 2024 12:37am Do you have a Healthcare Power of Avionics Integration Engineer? No December 16, 2024 12:37am Living Will No October 18 2:29am Do you have a Healthcare Power of Avionics Integration Engineer? No October 18, 2024 2:29am Living Will No December 16, 2024 12:26am Do you have a Healthcare Power of Avionics Integration Engineer? No December 16, 2024 12:26am Advance Directives No October 03, 2016 10:23am Advance Directive Response Recorded Date/ Time Living Will No December 16, 2024 12:37am Do you have a Healthcare Power of Avionics Integration Engineer? No December 16, 2024 12:37am Living Will No December 16, 2024 12:26am Do you have a Healthcare Power of Avionics Integration Engineer? No December 16, 2024 12:26am Living Will No February 15, 2025 1 2:04am Do you have a Healthcare Power of Avionics Integration Engineer? No February 15, 2025 12:04am Advance Directives No October 03, 2016 10:23am Advance Directive Response Recorded Date/ Time Living Will No December 16, 2024 12:26am Do you have a Healthcare Power of Avionics Integration Engineer? No December 16, 2024 12:26am Living Will No February 15, 2025 1 2:04am Do you have a Healthcare Power of Avionics Integration Engineer? No February 15, 2025 12:04am Advance Directives No October 03, 2016 10:23am Advance Directive Response Recorded Date/ Time Living Will No February 14, 2025 1 1:04pm Do you have a Healthcare Power of Avionics Integration Engineer? No February 14, 2025 11:04pm Do you have a Healthcare Power of Avionics Integration Engineer? No July 04, 2025 5:30pm Advance Directives No October 03, 2016 9:23am Chief Complaint and Reason for Visit Chief Complaint ASTHMA Chief Complaint ASTHMA abscess sob Chief Complaint sob back pain Chief Complaint wound Reason for Visit Calciphylaxis Diabetes mellitus with diabetic polyneuropathy Lymphedema Morbidly obese Type 2 diabetes mellitus with foot ulcer Ulcer of right lower extremity with fat layer exposed Chief Complaint wound wound Reason for Visit Calciphylaxis Diabetes mellitus with diabetic polyneuropathy Lymphedema Morbidly obese Type 2 diabetes mellitus with foot ulcer Ulcer of right lower extremity with fat layer exposed Diabetes mellitus with diabetic polyneuropathy Lymphedema Type 2 diabetes mellitus with foot ulcer Ulcer of right lower extremity with fat layer exposed Chief Complaint wound wound wound Reason for Visit Calciphylaxis Diabetes mellitus with diabetic polyneuropathy Lymphedema Morbidly obese Type 2 diabetes mellitus with foot ulcer Ulcer of right lower extremity with fat layer exposed Diabetes mellitus with diabetic polyneuropathy Lymphedema Type 2 diabetes mellitus with foot ulcer Ulcer of right lower extremity with fat layer exposed Diabetes mellitus with diabetic polyneuropathy Lymphedema Morbidly obese Type 2 diabetes mellitus with foot ulcer Ulcer of right lower extremity with fat layer exposed Chief Complaint wound wound wound wound Incision & drainage of right foot w Reason for Visit Calciphylaxis Diabetes mellitus with diabetic polyneuropathy Lymphedema Morbidly obese Type 2 diabetes mellitus with foot ulcer Ulcer of right lower extremity with fat layer exposed Diabetes mellitus with diabetic polyneuropathy Lymphedema Type 2 diabetes mellitus with foot ulcer Ulcer of right lower extremity with fat layer exposed Diabetes mellitus with diabetic polyneuropathy Lymphedema Morbidly obese Type 2 diabetes mellitus with foot ulcer Ulcer of right lower extremity with fat layer exposed Calciphylaxis Diabetes mellitus with diabetic polyneuropathy Ulcer of right lower extremity with fat layer exposed Acute painful diabetic polyneuropathy Lymphedema, not elsewhere classified [id number] Chief Complaint wound wound wound Incision & drainage of right foot w wound Reason for Visit Calciphylaxis Diabetes mellitus with diabetic polyneuropathy Lymphedema Morbidly obese Type 2 diabetes mellitus with foot ulcer Ulcer of right lower extremity with fat layer exposed Diabetes mellitus with diabetic polyneuropathy Lymphedema Type 2 diabetes mellitus with foot ulcer Ulcer of right lower extremity with fat layer exposed Diabetes mellitus with diabetic polyneuropathy Lymphedema Morbidly obese Type 2 diabetes mellitus with foot ulcer Ulcer of right lower extremity with fat layer exposed Acute painful diabetic polyneuropathy Lymphedema, not elsewhere classified [id number] Acute painful diabetic polyneuropathy Calciphylaxis Diabetes mellitus with diabetic polyneuropathy Lymphedema, not elsewhere classified Ulcer of right lower extremity with fat layer exposed Wound dehiscence, surgical [id number] Chief Complaint wound wound Incision & drainage of right foot w wound wound Reason for Visit Diabetes mellitus wi th diabetic polyneuropathy Lymphedema Type 2 diabetes mellitus with foot ulcer Ulcer of right lower extremity with fat layer exposed Diabetes mellitus with diabetic polyneuropathy Lymphedema Morbidly obese Type 2 diabetes mellitus with foot ulcer Ulcer of right lower extremity with fat layer exposed Acute painful diabetic polyneuropathy Lymphedema, not elsewhere classified [id number] Acute painful diabetic polyneuropathy Calciphylaxis Diabetes mellitus with diabetic polyneuropathy Lymphedema, not elsewhere classified Ulcer of right lower extremity with fat layer exposed Wound dehiscence, surgical [id number] Acute painful diabetic polyneuropathy Cellulitis Lymphedema, not elsewhere classified Wound dehiscence, surgical [id number] Chief Complaint wound Incision & drainage of right foot w wound wound wound Reason for Visit Diabetes mellitus wi th diabetic polyneuropathy Lymphedema Morbidly obese Type 2 diabetes mellitus with foot ulcer Ulcer of right lower extremity with fat layer exposed Acute painful diabetic polyneuropathy Lymphedema, not elsewhere classified [id number] Acute painful diabetic polyneuropathy Calciphylaxis Diabetes mellitus with diabetic polyneuropathy Lymphedema, not elsewhere classified Ulcer of right lower extremity with fat layer exposed Wound dehiscence, surgical [id number] Acute painful diabetic polyneuropathy Cellulitis Lymphedema, not elsewhere classified Wound dehiscence, surgical [id number] Lymphedema, not elsewhere classified Wound dehiscence, surgical [id number] Chief Complaint Incision & drainage of right foot w wound wound wound wound Reason for Visit Acute painful diabet ic polyneuropathy Lymphedema, not elsewhere classified [id number] Acute painful diabetic polyneuropathy Calciphylaxis Diabetes mellitus with diabetic polyneuropathy Lymphedema, not elsewhere classified Ulcer of right lower extremity with fat layer exposed Wound dehiscence, surgical [id number] Acute painful diabetic polyneuropathy Cellulitis Lymphedema, not elsewhere classified Wound dehiscence, surgical [id number] Lymphedema, not elsewhere classified Wound dehiscence, surgical [id number] Acute painful diabetic polyneuropathy Cellulitis Lymphedema, not elsewhere classified Wound dehiscence, surgical [id number] Chief Complaint Admit Date wound/R LEG ULCER/EDEMA September 16, 024 10:30am ARTERIAL DISEASE W/ NON-HEALING ULCER [facility] 2024 3:08pm TYPE 2 DM September 23, 2024 2: 01pm wound/R LEG ULCER/EDEMA October 17 10:00am wound/R LEG ULCER/EDEMA November 12, 025 12:30pm TYPE 2 DM December 03, 2024 10: 29am wound/R LEG ULCER/EDEMA December 10, 2024 10:15am BACK December 15, 2024 11: 45am Reason for Visit Admit Date Lymphedema, not elsewhere classified [facility] ember 2023 10:30am Medical non-compliance September 16 10:30am Morbidly obese September 16, 2024 10:30am 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 September 16, 2024 10:30am 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 of right lower leg with necr September 18, 2024 3:08pm Lymphedema, not elsewhere classified [facility] 2024 10:00am Morbidly obese October 17, 2024 1 0:00am 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 October 17, 2024 10:00am Lymphedema, not elsewhere classified [facility] 2024 12:30pm 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 of right lower leg with necr November 12, 2024 12:30pm Lymphedema, not elsewhere classified [facility] 2024 10:15am 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 December 10, 2024 10:15am Chief Complaint Admit Date wound/R LEG ULCER/EDEMA October 17 10:00am wound/R LEG ULCER/EDEMA November 12, 025 12:30pm TYPE 2 DM December 03, 2024 10: 29am wound/R LEG ULCER/EDEMA December 10, 2024 10:15am BACK December 15, 2024 11: 45am TYPE 2 DM January 26, 2025 10:39 am LUMBAR SPINE January 30, 2025 2:06p m RM 2 January 30, 2025 2:48p m Reason for Visit Admit Date Lymphedema, not elsewhere classified [facility] 2024 10:00am Morbidly obese October 17, 2024 1 0:00am 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 October 17, 2024 10:00am Lymphedema, not elsewhere classified [facility] 2024 12:30pm 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 of right lower leg with necr November 12, 2024 12:30pm Lymphedema, not elsewhere classified [facility] 2024 10:15am 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 December 10, 2024 10:15am Chief Complaint Admit Date wound/R LEG ULCER/EDEMA November 12, 2 025 12:30pm TYPE 2 DM December 03, 2024 10: 29am wound/R LEG ULCER/EDEMA December 10, 2024 10:15am BACK December 15, 2024 11: 45am TYPE 2 DM January 26, 2025 10:39 am LUMBAR SPINE January 30, 2025 2:06p m RM 2 January 30, 2025 2:48p m Reason for Visit Admit Date Lymphedema, not elsewhere classified Feb ruary 2024 12:30pm 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 of right lower leg with necr November 12, 2024 12:30pm Lymphedema, not elsewhere classified [facility] 2024 10:15am 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 December 10, 2024 10:15am Degenerative disc disease (D DD) of lumbar region with discogenic back pain January 30, 2025 2:06pm Lumbar radiculopathy January 30, 2025 2:06 pm Chief Complaint Admit Date TYPE 2 DM December 03, 2024 10: 29am wound/R LEG ULCER/EDEMA December 10, 2024 10:15am BACK December 15, 2024 11: 45am TYPE 2 DM January 26, 2025 10:39 am LUMBAR SPINE January 30, 2025 2:06p m RM 2 January 30, 2025 2:48p m wound/R LEG ULCER/EDEMA-RE WRAP LEGS Feb 10:15am Reason for Visit Admit Date Lymphedema, not elsewhere classified [facility] 2024 10:15am 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 December 10, 2024 10:15am Degenerative disc disease (D DD) of lumbar region with discogenic back pain January 30, 2025 2:06pm Lumbar radiculopathy January 30, 2025 2:06 pm Lymphedema March 11, 2025 10:1 5am 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 March 11, 2025 10:15am Chief Complaint Admit Date TYPE 2 DM January 26, 2025 10:39 am LUMBAR SPINE January 30, 2025 2:06p m RM 2 January 30, 2025 2:48p m wound/R LEG ULCER/EDEMA-RE WRAP LEGS Feb 10:15am TYPE 2 DM March 31, 2025 10:3 0am Reason for Visit Admit Date Degenerative disc disease (D DD) of lumbar region with discogenic back pain January 30, 2025 2:06pm Lumbar radiculopathy January 30, 2025 2:06 pm Lymphedema March 11, 2025 10:1 5am 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 March 11, 2025 10:15am Chief Complaint Admit Date TYPE 2 DM January 26, 2025 10:39 am LUMBAR SPINE January 30, 2025 2:06p m RM 2 January 30, 2025 2:48p m wound/R LEG ULCER/EDEMA-RE WRAP LEGS Feb 10:15am TYPE 2 DM March 31, 2025 10:3 0am wound May 06, 2025 9: 04am Reason for Visit Admit Date Degenerative disc disease (D DD) of lumbar region with discogenic back pain January 30, 2025 2:06pm Lumbar radiculopathy January 30, 2025 2:06 pm Lymphedema March 11, 2025 10:1 5am 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 March 11, 2025 10:15am Lymphedema, not elsewhere classified Apr 9:04am Chief Complaint Admit Date wound/R LEG ULCER/EDEMA-RE WRAP LEGS Feb 10:15am TYPE 2 DM March 31, 2025 10:3 0am wound May 06, 2025 9: 04am TYPE 2 DM June 02, 2025 10:38am Reason for Visit Admit Date Lymphedema March 11, 2025 10:1 5am 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 March 11, 2025 10:15am Lymphedema, not elsewhere classified Apr 9:04am Chief Complaint Admit Date TYPE 2 DM March 31, 2025 10:3 0am wound May 06, 2025 9: 04am TYPE 2 DM June 02, 2025 10:38am General illness July 04, 2025 6 :05pm WOUND July 17, 2025 1 :00pm WOUND July 22, 2025 8 :44am Reason for Visit Admit Date Lymphedema, not elsewhere classified Aug ust 2024 9:04am Lymphedema, not elsewhere classified Oct ben 2024 1:00pm Other specified peripheral vascular dise ases July 17, 2025 1:00pm Non-pressure chronic ulcer o f other part of right lower leg with fat layer July 17, 2025 1:00pm Lymphedema, not elsewhere classified Nov ember 2024 8:44am Non-pressure chronic ulcer o f other part of right lower leg with fat layer July 22, 2025 8:44am Reason for Referral Specialty Diagnoses / Procedures Referred By Contac t Referred To Contact Pulmonary and Critical Care Medicine / PULMONARY MEDICINE Diagnoses Intermittent asthma, unspecified asthma severity, unspecified whether complicated Procedures CONSULT TO PULM/CRITICAL CARE OFFICE/OUTPATIENT [facility] 60-74 MINUTES Johnson Rm, MARIJA.SENIOR SHAREPOINT ARCHITECT [address] [place] [address] Pulm [facility] [address] [phone] Referral ID Status Reason Start Date Expiration Date Visits Requested Visits Authorized [id number] Authorized PCP Requested Referral 2 09/05/2023 1 1 Specialty Diagnoses / Procedures Referred By Contac t Referred To Contact Diagnoses Migraine without aura and without status migrainosus, not intractable Zunilda Jaramillo, MARIJA.SENIOR TRAINER [address] [place] [address] Referral ID Status Reason Start Date Expiration Date Visits Re quested Visits Authorized [id number] Closed 1 1 Specialty Diagnoses / Procedures Referred By Contac t Referred To Contact Diagnoses Moderate persistent asthma without complication Rodri Chauhan MD [address] [place] [address] Referral ID Status Reason Start Date Expiration Date Visits Re quested Visits Authorized [id number] Closed 1 1 Specialty Diagnoses / Procedures Referred By Contac t Referred To Contact [facility] Diagnoses Chronic radicular low back pain Pain in both knees, unspecified chronicity Procedures CONSULT TO PAIN MGT OFFICE/OUTPATIENT [facility] 60-74 MINUTES Zunilda Jaramillo APRN.SENIOR TRAINER [address] [place] [id number] Anesthesia [place] [address] [place] [address] Referral ID Status Reason Start Date Expiration Date V isits Requested Visits Authorized [id number] Closed PCP Requested Referral 02/07/2023 02/07/2024 1 1 Specialty Diagnoses / Procedures Referred By Contac t Referred To Contact Podiatry Diagnoses Controlled type 2 diabetes mellitus without complication, without long-term current use of insulin (HCC) Foot pain, bilateral Procedures CONSULT TO PODIATRY OFFICE/OUTPATIENT [facility] 60-74 MINUTES Zunilda Jaramillo APRN.SENIOR TRAINER [address] [place] [id number] Referral ID Status Reason Start Date Expiration Date Visits Requested Visits Authorized [id number] Authorized PCP Requested Referral 02/07/2023 02/07/2024 1 1 Specialty Diagnoses / Procedures Referred By Contac t Referred To Contact Johnson Rm APRN.SENIOR SHAREPOINT ARCHITECT [address] [place] [id number] Referral ID Status Reason Start Date Expiration Date Visits Re quested Visits Authorized [id number] Closed 1 1 Specialty Diagnoses / Procedures Referred By Contac t Referred To Contact Diagnoses Cellulitis of right lower extremity Bilateral leg edema Rodri Chauhan MD [address] [place] [id number] Referral ID Status Reason Start Date Expiration Date Visits Re quested Visits Authorized [id number] Closed 1 1 Specialty Diagnoses / Procedures Referred By Contac t Referred To Contact Diagnoses Cellulitis of right lower extremity Bilateral leg edema Zunilda Jaramillo APRN.SENIOR TRAINER [facility] [place] [address] Referral ID Status Reason Start Date Expiration Date Visits Re quested Visits Authorized [id number] Closed 1 1 Specialty Diagnoses / Procedures Referred By Contac t Referred To Contact Diagnoses Cellulitis of right lower extremity Bilateral leg edema Johnson Rm APRN.SENIOR SHAREPOINT ARCHITECT [facility] [place] [address] Referral ID Status Reason Start Date Expiration Date Visits Re quested Visits Authorized [id number] Closed 1 1 Specialty Diagnoses / Procedures Referred By Contac t Referred To Contact Dermatology Diagnoses Skin disorder Procedures CONSULT TO DERMATOLOGY Zunilda Jaramillo APRN.SENIOR TRAINER [address] [place] [address] Referral ID Status Reason Start Date Expiration Date Visits Requested Visits Authorized [id number] Ref Not Required PCP Requested Referral 12/07/2023 12/06/2024 1 1 Referral ID Status Reason Start Date Expiration Date V isits Requested Visits Authorized [id number] Pending Review 1 1 Specialty Diagnoses / Procedures Referred By Contac t Referred To Contact Rodri Chauhan MD [address] [place] [address] Referral ID Status Reason Start Date Expiration Date Visits Re quested Visits Authorized [id number] Denied 1 1 Specialty Diagnoses / Procedures Referred By Contac t Referred To Contact Hematology Diagnoses Thrombocytopenia (HCC) Procedures CONSULT TO HEMATOLOGY OFFICE/OUTPATIENT [facility] 60 MINUTES Preeti Kaba, MRI CT TECH.SENIOR TRAINER [address] [place] [address] Referral ID Status Reason Start Date Expiration Date Visits Requested Visits Authorized [id number] Authorized PCP Requested Referral 10/20/2024 10/20/2025 1 1 Additional Source Comments INFORMATION SOURCE (unrecogn ized section and content) DATE CREATED AUTHOR 03/13/2018 [facility] DATE CREATED AUTHOR AUTHOR'S ORGANIZ ATION 10/03/2023 [facility] DATE CREATED AUTHOR AUTHOR'S ORGANIZ ATION 08/05/2024 [facility] DATE CREATED AUTHOR AUTHOR'S ORGANIZ ATION 07/18/2025 [facility] DATE CREATED AUTHOR AUTHOR'S ORGANIZ ATION 07/30/2025 [facility] Source Comments (unrecognize d section and content) In the event this informatio n is protected by the Federal Confidentiality of Alcohol and Drug Abuse Patient Records regulations: The Federal rules restrict any use of the information to criminally investigate or prosecute any alcohol or drug abuse patient.[facility] the event this information is protected by the Federal Confidentiality of Alcohol and Drug Abuse Patient Records regulations: The Federal rules restrict any use of the information to criminally investigate or prosecute any alcohol or drug abuse patient.[facility] the event this information is protected by the Federal Confidentiality of Alcohol and Drug Abuse Patient Records regulations: The Federal rules restrict any use of the information to criminally investigate or prosecute any alcohol or drug abuse patient.[facility] the event this information is protected by the Federal Confidentiality of Alcohol and Drug Abuse Patient Records regulations: The Federal rules restrict any use of the information to criminally investigate or prosecute any alcohol or drug abuse patient.[facility] the event this information is protected by the Federal Confidentiality of Alcohol and Drug Abuse Patient Records regulations: The Federal rules restrict any use of the information to criminally investigate or prosecute any alcohol or drug abuse patient.[facility] the event this information is protected by the Federal Confidentiality of Alcohol and Drug Abuse Patient Records regulations: The Federal rules restrict any use of the information to criminally investigate or prosecute any alcohol or drug abuse patient.[facility] the event this information is protected by the Federal Confidentiality of Alcohol and Drug Abuse Patient Records regulations: The Federal rules restrict any use of the information to criminally investigate or prosecute any alcohol or drug abuse patient.[facility] the event this information is protected by the Federal Confidentiality of Alcohol and Drug Abuse Patient Records regulations: The Federal rules restrict any use of the information to criminally investigate or prosecute any alcohol or drug abuse patient.[facility] the event this information is protected by the Federal Confidentiality of Alcohol and Drug Abuse Patient Records regulations: The Federal rules restrict any use of the information to criminally investigate or prosecute any alcohol or drug abuse patient.[facility] the event this information is protected by the Federal Confidentiality of Alcohol and Drug Abuse Patient Records regulations: The Federal rules restrict any use of the information to criminally investigate or prosecute any alcohol or drug abuse patient.[facility] the event this information is protected by the Federal Confidentiality of Alcohol and Drug Abuse Patient Records regulations: The Federal rules restrict any use of the information to criminally investigate or prosecute any alcohol or drug abuse patient.[facility]In the event this information is protected by the Federal Confidentiality of Alcohol and Drug Abuse Patient Records regulations: The Federal rules restrict any use of the information to criminally investigate or prosecute any alcohol or drug abuse patient.[facility] HospitalIn the event this information is protected by the Federal Confidentiality of Alcohol and Drug Abuse Patient Records regulations: The Federal rules restrict any use of the information to criminally investigate or prosecute any alcohol or drug abuse patient.[facility] HospitalIn the event this information is protected by the Federal Confidentiality of Alcohol and Drug Abuse Patient Records regulations: The Federal rules restrict any use of the information to criminally investigate or prosecute any alcohol or drug abuse patient.[facility] HospitalIn the event this information is protected by the Federal Confidentiality of Alcohol and Drug Abuse Patient Records regulations: The Federal rules restrict any use of the information to criminally investigate or prosecute any alcohol or drug abuse patient.[facility] HospitalIn the event this information is protected by the Federal Confidentiality of Alcohol and Drug Abuse Patient Records regulations: The Federal rules restrict any use of the information to criminally investigate or prosecute any alcohol or drug abuse patient.[facility] HospitalIn the event this information is protected by the Federal Confidentiality of Alcohol and Drug Abuse Patient Records regulations: The Federal rules restrict any use of the information to criminally investigate or prosecute any alcohol or drug abuse patient.[facility] HospitalIn the event this information is protected by the Federal Confidentiality of Alcohol and Drug Abuse Patient Records regulations: The Federal rules restrict any use of the information to criminally investigate or prosecute any alcohol or drug abuse patient.[facility] HospitalIn the event this information is protected by the Federal Confidentiality of Alcohol and Drug Abuse Patient Records regulations: The Federal rules restrict any use of the information to criminally investigate or prosecute any alcohol or drug abuse patient.[facility] HospitalIn the event this information is protected by the Federal Confidentiality of Alcohol and Drug Abuse Patient Records regulations: The Federal rules restrict any use of the information to criminally investigate or prosecute any alcohol or drug abuse patient.[facility] HospitalIn the event this information is protected by the Federal Confidentiality of Alcohol and Drug Abuse Patient Records regulations: The Federal rules restrict any use of the information to criminally investigate or prosecute any alcohol or drug abuse patient.[facility] HospitalIn the event this information is protected by the Federal Confidentiality of Alcohol and Drug Abuse Patient Records regulations: The Federal rules restrict any use of the information to criminally investigate or prosecute any alcohol or drug abuse patient.[facility] HospitalIn the event this information is protected by the Federal Confidentiality of Alcohol and Drug Abuse Patient Records regulations: The Federal rules restrict any use of the information to criminally investigate or prosecute any alcohol or drug abuse patient.[facility] HospitalIn the event this information is protected by the Federal Confidentiality of Alcohol and Drug Abuse Patient Records regulations: The Federal rules restrict any use of the information to criminally investigate or prosecute any alcohol or drug abuse patient.[facility] HospitalIn the event this information is protected by the Federal Confidentiality of Alcohol and Drug Abuse Patient Records regulations: The Federal rules restrict any use of the information to criminally investigate or prosecute any alcohol or drug abuse patient.[facility] HospitalIn the event this information is protected by the Federal Confidentiality of Alcohol and Drug Abuse Patient Records regulations: The Federal rules restrict any use of the information to criminally investigate or prosecute any alcohol or drug abuse patient.[facility] HospitalIn the event this information is protected by the Federal Confidentiality of Alcohol and Drug Abuse Patient Records regulations: The Federal rules restrict any use of the information to criminally investigate or prosecute any alcohol or drug abuse patient.[facility] HospitalIn the event this information is protected by the Federal Confidentiality of Alcohol and Drug Abuse Patient Records regulations: The Federal rules restrict any use of the information to criminally investigate or prosecute any alcohol or drug abuse patient.[facility] HospitalIn the event this information is protected by the Federal Confidentiality of Alcohol and Drug Abuse Patient Records regulations: The Federal rules restrict any use of the information to criminally investigate or prosecute any alcohol or drug abuse patient.[facility] HospitalIn the event this information is protected by the Federal Confidentiality of Alcohol and Drug Abuse Patient Records regulations: The Federal rules restrict any use of the information to criminally investigate or prosecute any alcohol or drug abuse patient.[facility] HospitalIn the event this information is protected by the Federal Confidentiality of Alcohol and Drug Abuse Patient Records regulations: The Federal rules restrict any use of the information to criminally investigate or prosecute any alcohol or drug abuse patient.[facility] HospitalIn the event this information is protected by the Federal Confidentiality of Alcohol and Drug Abuse Patient Records regulations: The Federal rules restrict any use of the information to criminally investigate or prosecute any alcohol or drug abuse patient.[facility] HospitalIn the event this information is protected by the Federal Confidentiality of Alcohol and Drug Abuse Patient Records regulations: The Federal rules restrict any use of the information to criminally investigate or prosecute any alcohol or drug abuse patient.[facility] HospitalIn the event this information is protected by the Federal Confidentiality of Alcohol and Drug Abuse Patient Records regulations: The Federal rules restrict any use of the information to criminally investigate or prosecute any alcohol or drug abuse patient.[facility] HospitalIn the event this information is protected by the Federal Confidentiality of Alcohol and Drug Abuse Patient Records regulations: The Federal rules restrict any use of the information to criminally investigate or prosecute any alcohol or drug abuse patient.[facility] HospitalIn the event this information is protected by the Federal Confidentiality of Alcohol and Drug Abuse Patient Records regulations: The Federal rules restrict any use of the information to criminally investigate or prosecute any alcohol or drug abuse patient.[facility] HospitalIn the event this information is protected by the Federal Confidentiality of Alcohol and Drug Abuse Patient Records regulations: The Federal rules restrict any use of the information to criminally investigate or prosecute any alcohol or drug abuse patient.[facility] HospitalIn the event this information is protected by the Federal Confidentiality of Alcohol and Drug Abuse Patient Records regulations: The Federal rules restrict any use of the information to criminally investigate or prosecute any alcohol or drug abuse patient.[facility] HospitalIn the event this information is protected by the Federal Confidentiality of Alcohol and Drug Abuse Patient Records regulations: The Federal rules restrict any use of the information to criminally investigate or prosecute any alcohol or drug abuse patient.[facility] HospitalIn the event this information is protected by the Federal Confidentiality of Alcohol and Drug Abuse Patient Records regulations: The Federal rules restrict any use of the information to criminally investigate or prosecute any alcohol or drug abuse patient.[facility] HospitalIn the event this information is protected by the Federal Confidentiality of Alcohol and Drug Abuse Patient Records regulations: The Federal rules restrict any use of the information to criminally investigate or prosecute any alcohol or drug abuse patient.[facility] HospitalIn the event this information is protected by the Federal Confidentiality of Alcohol and Drug Abuse Patient Records regulations: The Federal rules restrict any use of the information to criminally investigate or prosecute any alcohol or drug abuse patient.[facility] HospitalIn the event this information is protected by the Federal Confidentiality of Alcohol and Drug Abuse Patient Records regulations: The Federal rules restrict any use of the information to criminally investigate or prosecute any alcohol or drug abuse patient.[facility] HospitalIn the event this information is protected by the Federal Confidentiality of Alcohol and Drug Abuse Patient Records regulations: The Federal rules restrict any use of the information to criminally investigate or prosecute any alcohol or drug abuse patient.[facility] HospitalIn the event this information is protected by the Federal Confidentiality of Alcohol and Drug Abuse Patient Records regulations: The Federal rules restrict any use of the information to criminally investigate or prosecute any alcohol or drug abuse patient.[facility] HospitalIn the event this information is protected by the Federal Confidentiality of Alcohol and Drug Abuse Patient Records regulations: The Federal rules restrict any use of the information to criminally investigate or prosecute any alcohol or drug abuse patient.[facility] HospitalIn the event this information is protected by the Federal Confidentiality of Alcohol and Drug Abuse Patient Records regulations: The Federal rules restrict any use of the information to criminally investigate or prosecute any alcohol or drug abuse patient.[facility] HospitalIn the event this information is protected by the Federal Confidentiality of Alcohol and Drug Abuse Patient Records regulations: The Federal rules restrict any use of the information to criminally investigate or prosecute any alcohol or drug abuse patient.[facility] HospitalIn the event this information is protected by the Federal Confidentiality of Alcohol and Drug Abuse Patient Records regulations: The Federal rules restrict any use of the information to criminally investigate or prosecute any alcohol or drug abuse patient.[facility] HospitalIn the event this information is protected by the Federal Confidentiality of Alcohol and Drug Abuse Patient Records regulations: The Federal rules restrict any use of the information to criminally investigate or prosecute any alcohol or drug abuse patient.[facility] HospitalIn the event this information is protected by the Federal Confidentiality of Alcohol and Drug Abuse Patient Records regulations: The Federal rules restrict any use of the information to criminally investigate or prosecute any alcohol or drug abuse patient.[facility] the event this information is protected by the Federal Confidentiality of Alcohol and Drug Abuse Patient Records regulations: The Federal rules restrict any use of the information to criminally investigate or prosecute any alcohol or drug abuse patient.[facility] HospitalIn the event this information is protected by the Federal Confidentiality of Alcohol and Drug Abuse Patient Records regulations: The Federal rules restrict any use of the information to criminally investigate or prosecute any alcohol or drug abuse patient.[facility] HospitalIn the event this information is protected by the Federal Confidentiality of Alcohol and Drug Abuse Patient Records regulations: The Federal rules restrict any use of the information to criminally investigate or prosecute any alcohol or drug abuse patient.[facility] HospitalIn the event this information is protected by the Federal Confidentiality of Alcohol and Drug Abuse Patient Records regulations: The Federal rules restrict any use of the information to criminally investigate or prosecute any alcohol or drug abuse patient.[facility] HospitalIn the event this information is protected by the Federal Confidentiality of Alcohol and Drug Abuse Patient Records regulations: The Federal rules restrict any use of the information to criminally investigate or prosecute any alcohol or drug abuse patient.[facility] HospitalIn the event this information is protected by the Federal Confidentiality of Alcohol and Drug Abuse Patient Records regulations: The Federal rules restrict any use of the information to criminally investigate or prosecute any alcohol or drug abuse patient.[facility] HospitalIn the event this information is protected by the Federal Confidentiality of Alcohol and Drug Abuse Patient Records regulations: The Federal rules restrict any use of the information to criminally investigate or prosecute any alcohol or drug abuse patient.[facility] HospitalIn the event this information is protected by the Federal Confidentiality of Alcohol and Drug Abuse Patient Records regulations: The Federal rules restrict any use of the information to criminally investigate or prosecute any alcohol or drug abuse patient.[facility] HospitalIn the event this information is protected by the Federal Confidentiality of Alcohol and Drug Abuse Patient Records regulations: The Federal rules restrict any use of the information to criminally investigate or prosecute any alcohol or drug abuse patient.[facility] HospitalIn the event this information is protected by the Federal Confidentiality of Alcohol and Drug Abuse Patient Records regulations: The Federal rules restrict any use of the information to criminally investigate or prosecute any alcohol or drug abuse patient.[facility] HospitalIn the event this information is protected by the Federal Confidentiality of Alcohol and Drug Abuse Patient Records regulations: The Federal rules restrict any use of the information to criminally investigate or prosecute any alcohol or drug abuse patient.[facility] HospitalIn the event this information is protected by the Federal Confidentiality of Alcohol and Drug Abuse Patient Records regulations: The Federal rules restrict any use of the information to criminally investigate or prosecute any alcohol or drug abuse patient.[facility] HospitalIn the event this information is protected by the Federal Confidentiality of Alcohol and Drug Abuse Patient Records regulations: The Federal rules restrict any use of the information to criminally investigate or prosecute any alcohol or drug abuse patient.[facility] HospitalIn the event this information is protected by the Federal Confidentiality of Alcohol and Drug Abuse Patient Records regulations: The Federal rules restrict any use of the information to criminally investigate or prosecute any alcohol or drug abuse patient.[facility] HospitalIn the event this information is protected by the Federal Confidentiality of Alcohol and Drug Abuse Patient Records regulations: The Federal rules restrict any use of the information to criminally investigate or prosecute any alcohol or drug abuse patient.[facility] HospitalIn the event this information is protected by the Federal Confidentiality of Alcohol and Drug Abuse Patient Records regulations: The Federal rules restrict any use of the information to criminally investigate or prosecute any alcohol or drug abuse patient.[facility] HospitalIn the event this information is protected by the Federal Confidentiality of Alcohol and Drug Abuse Patient Records regulations: The Federal rules restrict any use of the information to criminally investigate or prosecute any alcohol or drug abuse patient.[facility] HospitalIn the event this information is protected by the Federal Confidentiality of Alcohol and Drug Abuse Patient Records regulations: The Federal rules restrict any use of the information to criminally investigate or prosecute any alcohol or drug abuse patient.[facility] HospitalIn the event this information is protected by the Federal Confidentiality of Alcohol and Drug Abuse Patient Records regulations: The Federal rules restrict any use of the information to criminally investigate or prosecute any alcohol or drug abuse patient.[facility] HospitalIn the event this information is protected by the Federal Confidentiality of Alcohol and Drug Abuse Patient Records regulations: The Federal rules restrict any use of the information to criminally investigate or prosecute any alcohol or drug abuse patient.[facility] HospitalIn the event this information is protected by the Federal Confidentiality of Alcohol and Drug Abuse Patient Records regulations: The Federal rules restrict any use of the information to criminally investigate or prosecute any alcohol or drug abuse patient.[facility] HospitalIn the event this information is protected by the Federal Confidentiality of Alcohol and Drug Abuse Patient Records regulations: The Federal rules restrict any use of the information to criminally investigate or prosecute any alcohol or drug abuse patient.[facility] HospitalIn the event this information is protected by the Federal Confidentiality of Alcohol and Drug Abuse Patient Records regulations: The Federal rules restrict any use of the information to criminally investigate or prosecute any alcohol or drug abuse patient.[facility] HospitalIn the event this information is protected by the Federal Confidentiality of Alcohol and Drug Abuse Patient Records regulations: The Federal rules restrict any use of the information to criminally investigate or prosecute any alcohol or drug abuse patient.[facility] HospitalIn the event this information is protected by the Federal Confidentiality of Alcohol and Drug Abuse Patient Records regulations: The Federal rules restrict any use of the information to criminally investigate or prosecute any alcohol or drug abuse patient.[facility] HospitalIn the event this information is protected by the Federal Confidentiality of Alcohol and Drug Abuse Patient Records regulations: The Federal rules restrict any use of the information to criminally investigate or prosecute any alcohol or drug abuse patient.[facility] HospitalIn the event this information is protected by the Federal Confidentiality of Alcohol and Drug Abuse Patient Records regulations: The Federal rules restrict any use of the information to criminally investigate or prosecute any alcohol or drug abuse patient.[facility] HospitalIn the event this information is protected by the Federal Confidentiality of Alcohol and Drug Abuse Patient Records regulations: The Federal rules restrict any use of the information to criminally investigate or prosecute any alcohol or drug abuse patient.[facility] HospitalIn the event this information is protected by the Federal Confidentiality of Alcohol and Drug Abuse Patient Records regulations: The Federal rules restrict any use of the information to criminally investigate or prosecute any alcohol or drug abuse patient.[facility] HospitalIn the event this information is protected by the Federal Confidentiality of Alcohol and Drug Abuse Patient Records regulations: The Federal rules restrict any use of the information to criminally investigate or prosecute any alcohol or drug abuse patient.[facility] HospitalIn the event this information is protected by the Federal Confidentiality of Alcohol and Drug Abuse Patient Records regulations: The Federal rules restrict any use of the information to criminally investigate or prosecute any alcohol or drug abuse patient.[facility] HospitalIn the event this information is protected by the Federal Confidentiality of Alcohol and Drug Abuse Patient Records regulations: The Federal rules restrict any use of the information to criminally investigate or prosecute any alcohol or drug abuse patient.[facility] HospitalIn the event this information is protected by the Federal Confidentiality of Alcohol and Drug Abuse Patient Records regulations: The Federal rules restrict any use of the information to criminally investigate or prosecute any alcohol or drug abuse patient.[facility] HospitalIn the event this information is protected by the Federal Confidentiality of Alcohol and Drug Abuse Patient Records regulations: The Federal rules restrict any use of the information to criminally investigate or prosecute any alcohol or drug abuse patient.[facility] HospitalIn the event this information is protected by the Federal Confidentiality of Alcohol and Drug Abuse Patient Records regulations: The Federal rules restrict any use of the information to criminally investigate or prosecute any alcohol or drug abuse patient.[facility] HospitalIn the event this information is protected by the Federal Confidentiality of Alcohol and Drug Abuse Patient Records regulations: The Federal rules restrict any use of the information to criminally investigate or prosecute any alcohol or drug abuse patient.[facility] HospitalIn the event this information is protected by the Federal Confidentiality of Alcohol and Drug Abuse Patient Records regulations: The Federal rules restrict any use of the information to criminally investigate or prosecute any alcohol or drug abuse patient.[facility] HospitalIn the event this information is protected by the Federal Confidentiality of Alcohol and Drug Abuse Patient Records regulations: The Federal rules restrict any use of the information to criminally investigate or prosecute any alcohol or drug abuse patient.[facility] HospitalIn the event this information is protected by the Federal Confidentiality of Alcohol and Drug Abuse Patient Records regulations: The Federal rules restrict any use of the information to criminally investigate or prosecute any alcohol or drug abuse patient.[facility] HospitalIn the event this information is protected by the Federal Confidentiality of Alcohol and Drug Abuse Patient Records regulations: The Federal rules restrict any use of the information to criminally investigate or prosecute any alcohol or drug abuse patient.[facility] HospitalIn the event this information is protected by the Federal Confidentiality of Alcohol and Drug Abuse Patient Records regulations: The Federal rules restrict any use of the information to criminally investigate or prosecute any alcohol or drug abuse patient.[facility] HospitalIn the event this information is protected by the Federal Confidentiality of Alcohol and Drug Abuse Patient Records regulations: The Federal rules restrict any use of the information to criminally investigate or prosecute any alcohol or drug abuse patient.[facility] HospitalIn the event this information is protected by the Federal Confidentiality of Alcohol and Drug Abuse Patient Records regulations: The Federal rules restrict any use of the information to criminally investigate or prosecute any alcohol or drug abuse patient.[facility] HospitalIn the event this information is protected by the Federal Confidentiality of Alcohol and Drug Abuse Patient Records regulations: The Federal rules restrict any use of the information to criminally investigate or prosecute any alcohol or drug abuse patient.[facility] HospitalIn the event this information is protected by the Federal Confidentiality of Alcohol and Drug Abuse Patient Records regulations: The Federal rules restrict any use of the information to criminally investigate or prosecute any alcohol or drug abuse patient.[facility] HospitalIn the event this information is protected by the Federal Confidentiality of Alcohol and Drug Abuse Patient Records regulations: The Federal rules restrict any use of the information to criminally investigate or prosecute any alcohol or drug abuse patient.[facility] HospitalIn the event this information is protected by the Federal Confidentiality of Alcohol and Drug Abuse Patient Records regulations: The Federal rules restrict any use of the information to criminally investigate or prosecute any alcohol or drug abuse patient.[facility] HospitalIn the event this information is protected by the Federal Confidentiality of Alcohol and Drug Abuse Patient Records regulations: The Federal rules restrict any use of the information to criminally investigate or prosecute any alcohol or drug abuse patient.[facility] HospitalIn the event this information is protected by the Federal Confidentiality of Alcohol and Drug Abuse Patient Records regulations: The Federal rules restrict any use of the information to criminally investigate or prosecute any alcohol or drug abuse patient.[facility] HospitalIn the event this information is protected by the Federal Confidentiality of Alcohol and Drug Abuse Patient Records regulations: The Federal rules restrict any use of the information to criminally investigate or prosecute any alcohol or drug abuse patient.[facility] the event this information is protected by the Federal Confidentiality of Alcohol and Drug Abuse Patient Records regulations: The Federal rules restrict any use of the information to criminally investigate or prosecute any alcohol or drug abuse patient.[facility] HospitalIn the event this information is protected by the Federal Confidentiality of Alcohol and Drug Abuse Patient Records regulations: The Federal rules restrict any use of the information to criminally investigate or prosecute any alcohol or drug abuse patient.[facility] HospitalIn the event this information is protected by the Federal Confidentiality of Alcohol and Drug Abuse Patient Records regulations: The Federal rules restrict any use of the information to criminally investigate or prosecute any alcohol or drug abuse patient.[facility] HospitalIn the event this information is protected by the Federal Confidentiality of Alcohol and Drug Abuse Patient Records regulations: The Federal rules restrict any use of the information to criminally investigate or prosecute any alcohol or drug abuse patient.[facility] HospitalIn the event this information is protected by the Federal Confidentiality of Alcohol and Drug Abuse Patient Records regulations: The Federal rules restrict any use of the information to criminally investigate or prosecute any alcohol or drug abuse patient.[facility] HospitalIn the event this information is protected by the Federal Confidentiality of Alcohol and Drug Abuse Patient Records regulations: The Federal rules restrict any use of the information to criminally investigate or prosecute any alcohol or drug abuse patient.[facility] HospitalIn the event this information is protected by the Federal Confidentiality of Alcohol and Drug Abuse Patient Records regulations: The Federal rules restrict any use of the information to criminally investigate or prosecute any alcohol or drug abuse patient.[facility] HospitalIn the event this information is protected by the Federal Confidentiality of Alcohol and Drug Abuse Patient Records regulations: The Federal rules restrict any use of the information to criminally investigate or prosecute any alcohol or drug abuse patient.[facility] HospitalIn the event this information is protected by the Federal Confidentiality of Alcohol and Drug Abuse Patient Records regulations: The Federal rules restrict any use of the information to criminally investigate or prosecute any alcohol or drug abuse patient.[facility] HospitalIn the event this information is protected by the Federal Confidentiality of Alcohol and Drug Abuse Patient Records regulations: The Federal rules restrict any use of the information to criminally investigate or prosecute any alcohol or drug abuse patient.[facility] HospitalIn the event this information is protected by the Federal Confidentiality of Alcohol and Drug Abuse Patient Records regulations: The Federal rules restrict any use of the information to criminally investigate or prosecute any alcohol or drug abuse patient.[facility] HospitalIn the event this information is protected by the Federal Confidentiality of Alcohol and Drug Abuse Patient Records regulations: The Federal rules restrict any use of the information to criminally investigate or prosecute any alcohol or drug abuse patient.[facility] HospitalIn the event this information is protected by the Federal Confidentiality of Alcohol and Drug Abuse Patient Records regulations: The Federal rules restrict any use of the information to criminally investigate or prosecute any alcohol or drug abuse patient.[facility] HospitalIn the event this information is protected by the Federal Confidentiality of Alcohol and Drug Abuse Patient Records regulations: The Federal rules restrict any use of the information to criminally investigate or prosecute any alcohol or drug abuse patient.[facility] HospitalIn the event this information is protected by the Federal Confidentiality of Alcohol and Drug Abuse Patient Records regulations: The Federal rules restrict any use of the information to criminally investigate or prosecute any alcohol or drug abuse patient.[facility] HospitalIn the event this information is protected by the Federal Confidentiality of Alcohol and Drug Abuse Patient Records regulations: The Federal rules restrict any use of the information to criminally investigate or prosecute any alcohol or drug abuse patient.[facility] HospitalIn the event this information is protected by the Federal Confidentiality of Alcohol and Drug Abuse Patient Records regulations: The Federal rules restrict any use of the information to criminally investigate or prosecute any alcohol or drug abuse patient.[facility] HospitalIn the event this information is protected by the Federal Confidentiality of Alcohol and Drug Abuse Patient Records regulations: The Federal rules restrict any use of the information to criminally investigate or prosecute any alcohol or drug abuse patient.[facility] HospitalIn the event this information is protected by the Federal Confidentiality of Alcohol and Drug Abuse Patient Records regulations: The Federal rules restrict any use of the information to criminally investigate or prosecute any alcohol or drug abuse patient.[facility] HospitalIn the event this information is protected by the Federal Confidentiality of Alcohol and Drug Abuse Patient Records regulations: The Federal rules restrict any use of the information to criminally investigate or prosecute any alcohol or drug abuse patient.[facility] HospitalIn the event this information is protected by the Federal Confidentiality of Alcohol and Drug Abuse Patient Records regulations: The Federal rules restrict any use of the information to criminally investigate or prosecute any alcohol or drug abuse patient.[facility] HospitalIn the event this information is protected by the Federal Confidentiality of Alcohol and Drug Abuse Patient Records regulations: The Federal rules restrict any use of the information to criminally investigate or prosecute any alcohol or drug abuse patient.[facility] HospitalIn the event this information is protected by the Federal Confidentiality of Alcohol and Drug Abuse Patient Records regulations: The Federal rules restrict any use of the information to criminally investigate or prosecute any alcohol or drug abuse patient.[facility] HospitalIn the event this information is protected by the Federal Confidentiality of Alcohol and Drug Abuse Patient Records regulations: The Federal rules restrict any use of the information to criminally investigate or prosecute any alcohol or drug abuse patient.[facility] HospitalIn the event this information is protected by the Federal Confidentiality of Alcohol and Drug Abuse Patient Records regulations: The Federal rules restrict any use of the information to criminally investigate or prosecute any alcohol or drug abuse patient.[facility] HospitalIn the event this information is protected by the Federal Confidentiality of Alcohol and Drug Abuse Patient Records regulations: The Federal rules restrict any use of the information to criminally investigate or prosecute any alcohol or drug abuse patient.[facility] HospitalIn the event this information is protected by the Federal Confidentiality of Alcohol and Drug Abuse Patient Records regulations: The Federal rules restrict any use of the information to criminally investigate or prosecute any alcohol or drug abuse patient.[facility] HospitalIn the event this information is protected by the Federal Confidentiality of Alcohol and Drug Abuse Patient Records regulations: The Federal rules restrict any use of the information to criminally investigate or prosecute any alcohol or drug abuse patient.[facility] HospitalIn the event this information is protected by the Federal Confidentiality of Alcohol and Drug Abuse Patient Records regulations: The Federal rules restrict any use of the information to criminally investigate or prosecute any alcohol or drug abuse patient.[facility] HospitalIn the event this information is protected by the Federal Confidentiality of Alcohol and Drug Abuse Patient Records regulations: The Federal rules restrict any use of the information to criminally investigate or prosecute any alcohol or drug abuse patient.[facility] HospitalIn the event this information is protected by the Federal Confidentiality of Alcohol and Drug Abuse Patient Records regulations: The Federal rules restrict any use of the information to criminally investigate or prosecute any alcohol or drug abuse patient.[facility] HospitalIn the event this information is protected by the Federal Confidentiality of Alcohol and Drug Abuse Patient Records regulations: The Federal rules restrict any use of the information to criminally investigate or prosecute any alcohol or drug abuse patient.[facility] HospitalIn the event this information is protected by the Federal Confidentiality of Alcohol and Drug Abuse Patient Records regulations: The Federal rules restrict any use of the information to criminally investigate or prosecute any alcohol or drug abuse patient.[facility] HospitalIn the event this information is protected by the Federal Confidentiality of Alcohol and Drug Abuse Patient Records regulations: The Federal rules restrict any use of the information to criminally investigate or prosecute any alcohol or drug abuse patient.[facility] HospitalIn the event this information is protected by the Federal Confidentiality of Alcohol and Drug Abuse Patient Records regulations: The Federal rules restrict any use of the information to criminally investigate or prosecute any alcohol or drug abuse patient.[facility] HospitalIn the event this information is protected by the Federal Confidentiality of Alcohol and Drug Abuse Patient Records regulations: The Federal rules restrict any use of the information to criminally investigate or prosecute any alcohol or drug abuse patient.[facility] HospitalIn the event this information is protected by the Federal Confidentiality of Alcohol and Drug Abuse Patient Records regulations: The Federal rules restrict any use of the information to criminally investigate or prosecute any alcohol or drug abuse patient.[facility] HospitalIn the event this information is protected by the Federal Confidentiality of Alcohol and Drug Abuse Patient Records regulations: The Federal rules restrict any use of the information to criminally investigate or prosecute any alcohol or drug abuse patient.[facility] HospitalIn the event this information is protected by the Federal Confidentiality of Alcohol and Drug Abuse Patient Records regulations: The Federal rules restrict any use of the information to criminally investigate or prosecute any alcohol or drug abuse patient.[facility] HospitalIn the event this information is protected by the Federal Confidentiality of Alcohol and Drug Abuse Patient Records regulations: The Federal rules restrict any use of the information to criminally investigate or prosecute any alcohol or drug abuse patient.[facility] HospitalIn the event this information is protected by the Federal Confidentiality of Alcohol and Drug Abuse Patient Records regulations: The Federal rules restrict any use of the information to criminally investigate or prosecute any alcohol or drug abuse patient.[facility] HospitalIn the event this information is protected by the Federal Confidentiality of Alcohol and Drug Abuse Patient Records regulations: The Federal rules restrict any use of the information to criminally investigate or prosecute any alcohol or drug abuse patient.[facility] HospitalIn the event this information is protected by the Federal Confidentiality of Alcohol and Drug Abuse Patient Records regulations: The Federal rules restrict any use of the information to criminally investigate or prosecute any alcohol or drug abuse patient.[facility] HospitalIn the event this information is protected by the Federal Confidentiality of Alcohol and Drug Abuse Patient Records regulations: The Federal rules restrict any use of the information to criminally investigate or prosecute any alcohol or drug abuse patient.[facility] HospitalIn the event this information is protected by the Federal Confidentiality of Alcohol and Drug Abuse Patient Records regulations: The Federal rules restrict any use of the information to criminally investigate or prosecute any alcohol or drug abuse patient.[facility] HospitalIn the event this information is protected by the Federal Confidentiality of Alcohol and Drug Abuse Patient Records regulations: The Federal rules restrict any use of the information to criminally investigate or prosecute any alcohol or drug abuse patient.[facility] HospitalIn the event this information is protected by the Federal Confidentiality of Alcohol and Drug Abuse Patient Records regulations: The Federal rules restrict any use of the information to criminally investigate or prosecute any alcohol or drug abuse patient.[facility] HospitalIn the event this information is protected by the Federal Confidentiality of Alcohol and Drug Abuse Patient Records regulations: The Federal rules restrict any use of the information to criminally investigate or prosecute any alcohol or drug abuse patient.[facility] HospitalIn the event this information is protected by the Federal Confidentiality of Alcohol and Drug Abuse Patient Records regulations: The Federal rules restrict any use of the information to criminally investigate or prosecute any alcohol or drug abuse patient.[facility] HospitalIn the event this information is protected by the Federal Confidentiality of Alcohol and Drug Abuse Patient Records regulations: The Federal rules restrict any use of the information to criminally investigate or prosecute any alcohol or drug abuse patient.[facility] the event this information is protected by the Federal Confidentiality of Alcohol and Drug Abuse Patient Records regulations: The Federal rules restrict any use of the information to criminally investigate or prosecute any alcohol or drug abuse patient.[facility] HospitalIn the event this information is protected by the Federal Confidentiality of Alcohol and Drug Abuse Patient Records regulations: The Federal rules restrict any use of the information to criminally investigate or prosecute any alcohol or drug abuse patient.[facility] HospitalIn the event this information is protected by the Federal Confidentiality of Alcohol and Drug Abuse Patient Records regulations: The Federal rules restrict any use of the information to criminally investigate or prosecute any alcohol or drug abuse patient.[facility] HospitalIn the event this information is protected by the Federal Confidentiality of Alcohol and Drug Abuse Patient Records regulations: The Federal rules restrict any use of the information to criminally investigate or prosecute any alcohol or drug abuse patient.[facility] HospitalIn the event this information is protected by the Federal Confidentiality of Alcohol and Drug Abuse Patient Records regulations: The Federal rules restrict any use of the information to criminally investigate or prosecute any alcohol or drug abuse patient.[facility] HospitalIn the event this information is protected by the Federal Confidentiality of Alcohol and Drug Abuse Patient Records regulations: The Federal rules restrict any use of the information to criminally investigate or prosecute any alcohol or drug abuse patient.[facility] HospitalIn the event this information is protected by the Federal Confidentiality of Alcohol and Drug Abuse Patient Records regulations: The Federal rules restrict any use of the information to criminally investigate or prosecute any alcohol or drug abuse patient.[facility] HospitalIn the event this information is protected by the Federal Confidentiality of Alcohol and Drug Abuse Patient Records regulations: The Federal rules restrict any use of the information to criminally investigate or prosecute any alcohol or drug abuse patient.[facility] HospitalIn the event this information is protected by the Federal Confidentiality of Alcohol and Drug Abuse Patient Records regulations: The Federal rules restrict any use of the information to criminally investigate or prosecute any alcohol or drug abuse patient.[facility] HospitalIn the event this information is protected by the Federal Confidentiality of Alcohol and Drug Abuse Patient Records regulations: The Federal rules restrict any use of the information to criminally investigate or prosecute any alcohol or drug abuse patient.[facility] HospitalIn the event this information is protected by the Federal Confidentiality of Alcohol and Drug Abuse Patient Records regulations: The Federal rules restrict any use of the information to criminally investigate or prosecute any alcohol or drug abuse patient.[facility] HospitalIn the event this information is protected by the Federal Confidentiality of Alcohol and Drug Abuse Patient Records regulations: The Federal rules restrict any use of the information to criminally investigate or prosecute any alcohol or drug abuse patient.[facility] HospitalIn the event this information is protected by the Federal Confidentiality of Alcohol and Drug Abuse Patient Records regulations: The Federal rules restrict any use of the information to criminally investigate or prosecute any alcohol or drug abuse patient.[facility] HospitalIn the event this information is protected by the Federal Confidentiality of Alcohol and Drug Abuse Patient Records regulations: The Federal rules restrict any use of the information to criminally investigate or prosecute any alcohol or drug abuse patient.[facility] HospitalIn the event this information is protected by the Federal Confidentiality of Alcohol and Drug Abuse Patient Records regulations: The Federal rules restrict any use of the information to criminally investigate or prosecute any alcohol or drug abuse patient.[facility] HospitalIn the event this information is protected by the Federal Confidentiality of Alcohol and Drug Abuse Patient Records regulations: The Federal rules restrict any use of the information to criminally investigate or prosecute any alcohol or drug abuse patient.[facility] HospitalIn the event this information is protected by the Federal Confidentiality of Alcohol and Drug Abuse Patient Records regulations: The Federal rules restrict any use of the information to criminally investigate or prosecute any alcohol or drug abuse patient.[facility] HospitalIn the event this information is protected by the Federal Confidentiality of Alcohol and Drug Abuse Patient Records regulations: The Federal rules restrict any use of the information to criminally investigate or prosecute any alcohol or drug abuse patient.[facility] HospitalIn the event this information is protected by the Federal Confidentiality of Alcohol and Drug Abuse Patient Records regulations: The Federal rules restrict any use of the information to criminally investigate or prosecute any alcohol or drug abuse patient.[facility] HospitalIn the event this information is protected by the Federal Confidentiality of Alcohol and Drug Abuse Patient Records regulations: The Federal rules restrict any use of the information to criminally investigate or prosecute any alcohol or drug abuse patient.[facility] HospitalIn the event this information is protected by the Federal Confidentiality of Alcohol and Drug Abuse Patient Records regulations: The Federal rules restrict any use of the information to criminally investigate or prosecute any alcohol or drug abuse patient.[facility] HospitalIn the event this information is protected by the Federal Confidentiality of Alcohol and Drug Abuse Patient Records regulations: The Federal rules restrict any use of the information to criminally investigate or prosecute any alcohol or drug abuse patient.[facility] HospitalIn the event this information is protected by the Federal Confidentiality of Alcohol and Drug Abuse Patient Records regulations: The Federal rules restrict any use of the information to criminally investigate or prosecute any alcohol or drug abuse patient.[facility] HospitalIn the event this information is protected by the Federal Confidentiality of Alcohol and Drug Abuse Patient Records regulations: The Federal rules restrict any use of the information to criminally investigate or prosecute any alcohol or drug abuse patient.[facility] HospitalIn the event this information is protected by the Federal Confidentiality of Alcohol and Drug Abuse Patient Records regulations: The Federal rules restrict any use of the information to criminally investigate or prosecute any alcohol or drug abuse patient.[facility] HospitalIn the event this information is protected by the Federal Confidentiality of Alcohol and Drug Abuse Patient Records regulations: The Federal rules restrict any use of the information to criminally investigate or prosecute any alcohol or drug abuse patient.[facility] HospitalIn the event this information is protected by the Federal Confidentiality of Alcohol and Drug Abuse Patient Records regulations: The Federal rules restrict any use of the information to criminally investigate or prosecute any alcohol or drug abuse patient.[facility] HospitalIn the event this information is protected by the Federal Confidentiality of Alcohol and Drug Abuse Patient Records regulations: The Federal rules restrict any use of the information to criminally investigate or prosecute any alcohol or drug abuse patient.[facility] HospitalIn the event this information is protected by the Federal Confidentiality of Alcohol and Drug Abuse Patient Records regulations: The Federal rules restrict any use of the information to criminally investigate or prosecute any alcohol or drug abuse patient.[facility] HospitalIn the event this information is protected by the Federal Confidentiality of Alcohol and Drug Abuse Patient Records regulations: The Federal rules restrict any use of the information to criminally investigate or prosecute any alcohol or drug abuse patient.[facility] HospitalIn the event this information is protected by the Federal Confidentiality of Alcohol and Drug Abuse Patient Records regulations: The Federal rules restrict any use of the information to criminally investigate or prosecute any alcohol or drug abuse patient.[facility] HospitalIn the event this information is protected by the Federal Confidentiality of Alcohol and Drug Abuse Patient Records regulations: The Federal rules restrict any use of the information to criminally investigate or prosecute any alcohol or drug abuse patient.[facility] HospitalIn the event this information is protected by the Federal Confidentiality of Alcohol and Drug Abuse Patient Records regulations: The Federal rules restrict any use of the information to criminally investigate or prosecute any alcohol or drug abuse patient.[facility] HospitalIn the event this information is protected by the Federal Confidentiality of Alcohol and Drug Abuse Patient Records regulations: The Federal rules restrict any use of the information to criminally investigate or prosecute any alcohol or drug abuse patient.[facility] HospitalIn the event this information is protected by the Federal Confidentiality of Alcohol and Drug Abuse Patient Records regulations: The Federal rules restrict any use of the information to criminally investigate or prosecute any alcohol or drug abuse patient.[facility] HospitalIn the event this information is protected by the Federal Confidentiality of Alcohol and Drug Abuse Patient Records regulations: The Federal rules restrict any use of the information to criminally investigate or prosecute any alcohol or drug abuse patient.[facility] HospitalIn the event this information is protected by the Federal Confidentiality of Alcohol and Drug Abuse Patient Records regulations: The Federal rules restrict any use of the information to criminally investigate or prosecute any alcohol or drug abuse patient.[facility] HospitalIn the event this information is protected by the Federal Confidentiality of Alcohol and Drug Abuse Patient Records regulations: The Federal rules restrict any use of the information to criminally investigate or prosecute any alcohol or drug abuse patient.[facility] HospitalIn the event this information is protected by the Federal Confidentiality of Alcohol and Drug Abuse Patient Records regulations: The Federal rules restrict any use of the information to criminally investigate or prosecute any alcohol or drug abuse patient.[facility] HospitalIn the event this information is protected by the Federal Confidentiality of Alcohol and Drug Abuse Patient Records regulations: The Federal rules restrict any use of the information to criminally investigate or prosecute any alcohol or drug abuse patient.[facility] HospitalIn the event this information is protected by the Federal Confidentiality of Alcohol and Drug Abuse Patient Records regulations: The Federal rules restrict any use of the information to criminally investigate or prosecute any alcohol or drug abuse patient.[facility] HospitalIn the event this information is protected by the Federal Confidentiality of Alcohol and Drug Abuse Patient Records regulations: The Federal rules restrict any use of the information to criminally investigate or prosecute any alcohol or drug abuse patient.[facility] HospitalIn the event this information is protected by the Federal Confidentiality of Alcohol and Drug Abuse Patient Records regulations: The Federal rules restrict any use of the information to criminally investigate or prosecute any alcohol or drug abuse patient.[facility] HospitalIn the event this information is protected by the Federal Confidentiality of Alcohol and Drug Abuse Patient Records regulations: The Federal rules restrict any use of the information to criminally investigate or prosecute any alcohol or drug abuse patient.[facility] HospitalIn the event this information is protected by the Federal Confidentiality of Alcohol and Drug Abuse Patient Records regulations: The Federal rules restrict any use of the information to criminally investigate or prosecute any alcohol or drug abuse patient.[facility] HospitalIn the event this information is protected by the Federal Confidentiality of Alcohol and Drug Abuse Patient Records regulations: The Federal rules restrict any use of the information to criminally investigate or prosecute any alcohol or drug abuse patient.[facility] HospitalIn the event this information is protected by the Federal Confidentiality of Alcohol and Drug Abuse Patient Records regulations: The Federal rules restrict any use of the information to criminally investigate or prosecute any alcohol or drug abuse patient.[facility] HospitalIn the event this information is protected by the Federal Confidentiality of Alcohol and Drug Abuse Patient Records regulations: The Federal rules restrict any use of the information to criminally investigate or prosecute any alcohol or drug abuse patient.[facility] HospitalIn the event this information is protected by the Federal Confidentiality of Alcohol and Drug Abuse Patient Records regulations: The Federal rules restrict any use of the information to criminally investigate or prosecute any alcohol or drug abuse patient.[facility] HospitalIn the event this information is protected by the Federal Confidentiality of Alcohol and Drug Abuse Patient Records regulations: The Federal rules restrict any use of the information to criminally investigate or prosecute any alcohol or drug abuse patient.[facility] Reason for Visit (unrecogniz ed section and content) Reason Comments Physical Therapy Specialty Diagnoses / Procedures Referred By Contac t Referred To Contact PHYSICAL THERAPY Diagnoses Chronic midline low back pain, unspecified whether sciatica present Radiculopathy of lumbar region Procedures CONSULT TO PHYSICAL THERAPY PHYSICAL THERAPY EVALUATION HIGH COMPLEX 45 MINS Johnson Rm, MRI CT TECH.SENIOR SHAREPOINT ARCHITECT [address] [place] [address] Phone: tel: fax: [facility] [address] [place] [address] Phone: tel: fax: Referral ID Status Reason Start Date Expiration Date Visits Requested Visits Authorized [id number] Authorized Auto-Generated Referral OON Notification Letter Financial Clearance Required - OON Payor Patient Cleared - INN Insurance Found 09/17/2024 04/04/2025 99 [phone] Specialty Diagnoses / Procedures Referred By Contac t Referred To Contact [facility] Diagnoses Chronic midline low back pain, unspecified whether sciatica present Radiculopathy of lumbar region Procedures CONSULT TO PHYSICAL THERAPY PHYSICAL THERAPY EVALUATION HIGH COMPLEX 45 MINS Johnson Rm, MRI CT TECH.SENIOR SHAREPOINT ARCHITECT [address] [place] [address] Phone: tel: fax: [facility] [address] [place] [address] Referral ID Status Reason Start Date Expiration Date Visits Requested Visits Authorized [id number] Authorized Auto-Generated Referral OON Notification Letter Financial Clearance Required - OON Payor Patient Cleared - INN Insurance Found 09/17/2024 09/16/2025 99 [phone] Reason Comments New Patient Specialty Diagnoses / Procedures Referred By Contac t Referred To Contact HEMATOLOGY/ONCOLOGY Diagnoses Thrombocytopenia Procedures CONSULT TO HEMATOLOGY OFFICE/OUTPATIENT NEW HIGH MDM 60 MINUTES OFFICE/OUTPATIENT NEW MODERATE MDM 45 MINUTES Preeti Kaba M, MRI CT TECH.SENIOR TRAINER [address] [place] [address] Phone: tel: fax: [place] [address] [place] [address] Phone: tel: fax: Referral ID Status Reason Start Date Expiration Date Visits Requested Visits Authorized [id number] Closed PCP Requested Referral Financial Clearance Required - OON Payor OON Notification Letter 10/20/2024 10/20/2025 1 1 Reason Onset Date Comments Refill Request 01/28/2022 Reason Onset Date Comments Refill Request 01/30/2022 [...] Reason Onset Date Comments Refill Request 08/21/2023 Reason Onset Date Comments Refill Request 11/19/2023 Reason Onset Date Comments Refill Request 11/21/2023 patient needs a new glucometer kit sent to the pharmacy also Reason Comments Results Reason Onset Date Comments Rx sent to wrong pharmacy 11/22/2023 Reason Onset Date Comments Refill Request 12/03/2023 Reason Comments F/U 6 months stomach issue Lymphedema per pt Reason Comments Orders Reason Onset Date Comments Refill Request 12/28/2023 Reason Onset Date Comments Refill Request 01/09/2024 Reason Onset Date Comments Refill Request 01/25/2024 Reason Onset Date Comments Refill Request 02/01/2024 Opened In Error 02/01/2024 Reason Onset Date Comments Refill Request 02/13/2024 Reason Comments Cough; medication request Reason Onset Date Comments Refill Request 03/10/2024 Reason Comments Patient Request Patient Update Reason Comments Blood Pressure Reason Onset Date Comments Refill Request 04/08/2024 Reason Comments medication question pramipexole (MIRAPEX ) 1.5 mg tablet Medication Request Not on current list for hip//back pain Reason Onset Date Comments Refill Request 04/22/2024 Reason Comments fax results Reason Comments Recheck Orders New order for CPAP w ater chamber heating element is broken. Was using [employer] but not sure they take her insurance. Reason Onset Date Comments Refill Request 04/11/2024 Reason Comments Cough Cough x several joey hs but worse last 3 days making her chest, arms and ribs hurt Reason Onset Date Comments Refill Request 05/21/2024 Reason Comments Cough Reason Onset Date Comments Refill Request 05/30/2024 Reason Comments Cough With congestion & SO B x 1.5 month Reason Onset Date Comments Refill Request 06/10/2024 Reason Onset Date Comments Refill Request 06/24/2024 Reason Onset Date Comments Opened In Error 07/24/2024 Reason Comments F/U 6 Month Reason Onset Date Comments Refill Request 07/24/2024 Medication Request 07/24/2024 Reason Onset Date Comments Refill Request 07/24/2024 Reason Comments Appointment Reason Onset Date Comments Refill Request 08/06/2024 Reason Onset Date Comments Refill Request 08/06/2024 USING A NEW PHAR MELIDA Reason Onset Date Comments Refill Request 08/19/2024 Reason Onset Date Comments Refill Request 09/08/2024 Medication Problem 09/08/2024 Needs refills today Reason Comments Medication Problem Reason Onset Date Comments Refill Request 09/16/2024 Reason Onset Date Comments Refill Request 09/25/2024 Tramadol and Cyc lobenzaprine Reason Onset Date Comments Refill Request 10/14/2024 Reason Comments F/U 3 Month Medication Problem 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 Reason Comments Musculoskeletal Problem Bilateral hand/f ingers x 1 month Nose Problem Blood on kleenex x 1 day Reason Onset Date Comments Refill Request 10/27/2024 Reason Comments Pain Left hip, radiating up and down Left side, numbness and tingling x 2 days Reason Comments referral problem Reason Onset Date Comments Refill Request 11/25/2024 Reason Onset Date Comments Refill Request 12/02/2024 Reason Onset Date Comments Refill Request 12/08/2024 Reason Onset Date Comments Refill Request 12/11/2024 Reason Onset Date Comments Refill Request 12/17/2024 Reason Comments [facility] ER follow-up Reason Comments CPAP Supplies Reevaluation for neluh d. Needs script and supplies. Patient uses [facility] Reason Comments fax records to [facility] Reason Onset Date Comments Refill Request 01/12/2025 Reason Comments Review Of CPAP Titration Patient states she does have her CPAP and it is working very well for her. She is getting more sleep.Is requesting a script for a walker Reason Onset Date Comments Refill Request 01/27/2025 Reason Onset Date Comments Refill Request 01/26/2025 Reason Comments Recheck Reason Onset Date Comments Refill Request 02/02/2025 Reason Onset Date Comments Refill Request 02/09/2025 Reason Comments Back Pain Reason Onset Date Comments Refill Request 02/16/2025 Reason Onset Date Comments Refill Request 02/24/2025 Reason Onset Date Comments Refill Request 02/22/2025 Reason Comments PT Eval Reason Onset Date Comments Refill Request 02/27/2025 Reason Onset Date Comments Refill Request 02/17/2025 Reason Onset Date Comments Refill Request 03/02/2025 Reason Onset Date Comments Refill Request 03/15/2025 Reason Onset Date Comments Refill Request 03/17/2025 Reason Onset Date Comments Refill Request 03/07/2025 Reason Onset Date Comments Refill Request 03/23/2025 Reason Onset Date Comments Refill Request 03/29/2025 See RX notes Reason Onset Date Comments Refill Request 04/06/2025 Status of Rx 04/06/2025 Reason Onset Date Comments Refill Request 04/08/2025 Reason Onset Date Comments Refill Request 04/03/2025 Reason Comments Medication Problem [place] Reason Onset Date Comments Refill Request 04/09/2025 See Rx notes Reason Onset Date Comments Refill Request 04/13/2025 Reason Onset Date Comments Refill Request 04/09/2025 Reason Onset Date Comments Refill Request 04/15/2025 Reason Onset Date Comments Refill Request 04/14/2025 Reason Onset Date Comments Refill Request 04/27/2025 Specialty Diagnoses / Procedures Referred By Contac t Referred To Contact Physical Therapy / PHYSICAL THERAPY Diagnoses Low back pain, unspecified Other chronic pain Procedures EST RS PT ORTH K Johnson Rm, MRI CT TECH.SENIOR SHAREPOINT ARCHITECT [address] [place] [address] Phone: tel: fax: Nanci Cook, PT Referral ID Status Reason Start Date Expiration Date V isits Requested Visits Authorized [id number] Authorized 04/05/2025 06/16/2025 10 10 Reason Onset Date Comments Refill Request 05/04/2025 Reason Onset Date Comments Refill Request 05/06/2025 Reason Onset Date Comments Refill Request 05/11/2025 Reason Comments F/U 3 Month Reason Onset Date Comments Refill Request 05/19/2025 Reason Onset Date Comments Refill Request 05/18/2025 Reason Onset Date Comments Refill Request 05/27/2025 Reason Onset Date Comments Refill Request 06/02/2025 Reason Onset Date Comments Refill Request 05/29/2025 Care Teams (unrecognized sec tion and content) Manager Work Relationship Specialty Start Date End Date Rodri Chauhan MD [address] [place] [id number] PCP - General 03/07/06 Manager Work Relationship Specialty Start Date End Date Rodri Chauhan MD [address] [place] [address] [place] [address] PCP - General 03/07/06 Manager Work Relationship Specialty Start Date End Date Rodri Chauhan MD [address] [place] [address] [place] [address] PCP - General 03/07/06 Manager Work Relationship Specialty Start Date End Date Rodri Chauhan MD [address] [place] [address] [place] [address] PCP - General 03/07/06 Manager Work Relationship Specialty Start Date End Date Rodri Chauhan MD [address] [place] [address], [place] [address] PCP - General 03/07/06 Manager Work Relationship Specialty Start Date End Date Rodri Chauhan MD [address] [place] [address] [place] [address] PCP - General 03/07/06 Manager Work Relationship Specialty Start Date End Date Rodri Chauhan MD [address] [place] [address] PCP - General 03/07/06 Manager Work Relationship Specialty Start Date End Date Rodri Chauhan MD [address] [place] [address], [place] [address] PCP - General 03/07/06 Manager Work Relationship Specialty Start Date End Date Rodri Chauhan MD [address] [place] [address], [place] [address] PCP - General 03/07/06 Manager Work Relationship Specialty Start Date End Date Rodri Chauhan MD [address] [place] [address], [place] [address] PCP - General 03/07/06 Manager Work Relationship Specialty Start Date End Date Rodri Chauhan MD [address] [place] [address], [place] [address] PCP - General 03/07/06 Manager Work Relationship Specialty Start Date End Date Rodri Chauhan MD [address] [place] [address], [place] [address] PCP - General 03/07/06 Manager Work Relationship Specialty Start Date End Date Rodri Chauhan MD [address] [place] [address], [place] [address] PCP - General 03/07/06 Manager Work Relationship Specialty Start Date End Date Rodri Chauhan MD [address] [place] [address], [place] [address] PCP - General 03/07/06 Manager Work Relationship Specialty Start Date End Date Rodri Chauhan MD [address] [place] [address], [place] [address] PCP - General 03/07/06 Manager Work Relationship Specialty Start Date End Date Rodri Chauhan MD [address] [place] [address] PCP - General 03/07/06 Manager Work Relationship Specialty Start Date End Date Rdori Chauhan MD [address] [place] [address] PCP - General 03/07/06 Manager Work Relationship Specialty Start Date End Date Rodri Chauhan MD [address] [facility] [place] [address] PCP - General 03/07/06 Team Status: Active Member Role Status Dates Dr. Rodri Chauhan MD Family Provider Active Dr. Rodri Chauhan MD Primary Care Provider Active Team Status: Inactive Member Role Status Dates Dr. Rodri Chauhan MD Primary Care Provider Active Dr. Robbin Ham MD Attending Provider, Emergency Provider Active Team Status: Inactive Member Role Status Dates Dr. Rodri Chauhan MD Primary Care Provider Active Dr. Arcadio Bundy MD Emergency Provider Active Manager Work Relationship Specialty Start Date End Date Rodri Chauhan MD [address] [facility] [place] [address] PCP - General 03/07/06 Manager Work Relationship Specialty Start Date End Date Rodri Chauhan MD [address] [facility] [place] [address] PCP - General 03/07/06 Manager Work Relationship Specialty Start Date End Date Rodri Chauhan MD [address] [place] [address] PCP - General 03/07/06 Manager Work Relationship Specialty Start Date End Date Rodri Chauhan MD [facility] [place] [address] PCP - General 03/07/06 Manager Work Relationship Specialty Start Date End Date Rodri Chauhan MD [address] [place] [address] PCP - General 03/07/06 Manager Work Relationship Specialty Start Date End Date Rodri Chauhan MD [address] [place] [address] PCP - General 03/07/06 Manager Work Relationship Specialty Start Date End Date Rodri Chauhan MD [address] [place] [address] PCP - General 03/07/06 Manager Work Relationship Specialty Start Date End Date Rodri Chauhan MD [address] [place] [address] PCP - General 03/07/06 Manager Work Relationship Specialty Start Date End Date Rodri Chauhan MD [address] [place] [address] PCP - General 03/07/06 Manager Work Relationship Specialty Start Date End Date Rodri Chauhan MD [address] [place] [address] PCP - General 03/07/06 Manager Work Relationship Specialty Start Date End Date Rodri Chauhan MD [address] [place] [address] PCP - General 03/07/06 Manager Work Relationship Specialty Start Date End Date Rodri Chauhan MD [address] [place] [address] PCP - General 03/07/06 Manager Work Relationship Specialty Start Date End Date Rodri Chauhan MD [address] [place] [address] PCP - General 03/07/06 Manager Work Relationship Specialty Start Date End Date Rodri Chauhan MD [address] [place] [address] PCP - General 03/07/06 Manager Work Relationship Specialty Start Date End Date Rodri Chauhan MD [address] [place] [address] PCP - General 03/07/06 Manager Work Relationship Specialty Start Date End Date Rodri Chauhan MD [address] [place] [address] PCP - General 03/07/06 Team Status: Inactive Member Role Status Dates Dr. Rodri Chauhan MD Primary Care Provider Active Zunilda Jaramillo SINGER BACK TENDER, SINGER BACK TENDER-C Referring Provider Active TAMARA CotoM Attending Provider Active Manager Work Relationship Specialty Start Date End Date Rodri Chauhan MD [address] [place] [address] PCP - General 03/07/06 Manager Work Relationship Specialty Start Date End Date Rodri Chauhan MD [address] [place] [address] PCP - General 03/07/06 Manager Work Relationship Specialty Start Date End Date Rodri Chauhan MD [address] [place] [address] PCP - General 03/07/06 Manager Work Relationship Specialty Start Date End Date Rodri Chauhan MD [address] [place], [place] [address] PCP - General 03/07/06 Manager Work Relationship Specialty Start Date End Date Rodri Chauhan MD [address] [place] [address] PCP - General 03/07/06 Manager Work Relationship Specialty Start Date End Date Rodri Chauhan MD [address] [place] [address] PCP - General 03/07/06 Manager Work Relationship Specialty Start Date End Date Rodri Chauhan MD [address] [place] [address] PCP - General 03/07/06 Manager Work Relationship Specialty Start Date End Date Rodri Chauhan MD [address] [place] [address] PCP - General 03/07/06 Manager Work Relationship Specialty Start Date End Date Rodri Chauhan MD [address] [place] [address] PCP - General 03/07/06 Team Status: Inactive Member Role Status Dates Dr. Rodri Chauhan MD Primary Care Provider Active Dr. Sebas Lord DPM Attending Provider, Referring Provider Active Team Status: Active Member Role Status Dates Dr. Rodri Chauhan MD Primary Care Provider Active Zunilda Jaramillo SINGER BACK TENDER, SINGER BACK TENDER-C Referring Provider Active Dr. Sebas Lord DPM Attending Provider Active Manager Work Relationship Specialty Start Date End Date Rodri Chauhan MD [address] [place] [address] PCP - General 03/07/06 Manager Work Relationship Specialty Start Date End Date Rodri Chauhan MD [address] [place] [address] PCP - General 03/07/06 Manager Work Relationship Specialty Start Date End Date Rodri Chauhan MD [address] [place] [address] PCP - General 03/07/06 Manager Work Relationship Specialty Start Date End Date Rodri Chauhan MD [address] [place] [address] PCP - General 03/07/06 Manager Work Relationship Specialty Start Date End Date Rodri Chauhan MD [address] [place] [address] PCP - General 03/07/06 Manager Work Relationship Specialty Start Date End Date Rodri Chauhan MD [address] [place] [address] PCP - General 03/07/06 Manager Work Relationship Specialty Start Date End Date Rodri Chauhan MD [address] [place] [address] PCP - General 03/07/06 Manager Work Relationship Specialty Start Date End Date Rodri Chauhan MD [address] [place] [address] PCP - General 03/07/06 Manager Work Relationship Specialty Start Date End Date Rodri Chauhan MD [address] [place] [address] PCP - General 03/07/06 Manager Work Relationship Specialty Start Date End Date Rodri Chauhan MD [address] [place] [address] PCP - General 03/07/06 Manager Work Relationship Specialty Start Date End Date Rodri Chauhan MD [address] [place] [address] PCP - General 03/07/06 Manager Work Relationship Specialty Start Date End Date Rodri Chauhan MD [address] [place] [address] PCP - General 03/07/06 Manager Work Relationship Specialty Start Date End Date Rodri Chauhan MD [address] [place] [address] PCP - General 03/07/06 Manager Work Relationship Specialty Start Date End Date Rodri Chauhan MD [address] [place] [address] PCP - General 03/07/06 Manager Work Relationship Specialty Start Date End Date Rodri Chauhan MD [address] [place] [address] PCP - General 03/07/06 Manager Work Relationship Specialty Start Date End Date Rodri Chauhan MD [address] [place] [address] PCP - General 03/07/06 Manager Work Relationship Specialty Start Date End Date Rodri Chauhan MD [address] [place] [address] PCP - General 03/07/06 Manager Work Relationship Specialty Start Date End Date Rodri Chauhan MD [address] [place] [address] PCP - General 03/07/06 Manager Work Relationship Specialty Start Date End Date Rodri Chauhan MD [address] [place] [address] PCP - General 03/07/06 Johnson Rm, MRI CT TECH.SENIOR SHAREPOINT ARCHITECT [address] [place] [address] Ammonium Nitrate Crystallizer Internal Medicine 08/25/[address] TECH.SENIOR TRAINER [address] [place] [address] Ammonium Nitrate Crystallizer Internal Medicine 08/25/24 Manager Work Relationship Specialty Start Date End Date Rodri Chauhan MD [address] [place] [address] PCP - General 03/07/06 Johnson Rm, MRI CT TECH.SENIOR SHAREPOINT ARCHITECT [address] [place] [address] Ammonium Nitrate Crystallizer Internal Medicine 08/25/[address] TECH.SENIOR TRAINER [address] [place] [address] Ammonium Nitrate Crystallizer Internal Medicine 08/25/24 Manager Work Relationship Specialty Start Date End Date Rodri Chauhan MD [address] [place] [address] PCP - General 03/07/06 Johnson Rm, MRI CT TECH.SENIOR SHAREPOINT ARCHITECT [address] [place] [address] Ammonium Nitrate Crystallizer Internal Medicine 08/25/24 Zunilda Jaramillo APRN.SENIOR TRAINER [address] [place] [address] Ammonium Nitrate Crystallizer Internal Medicine 08/25/24 Manager Work Relationship Specialty Start Date End Date Rodri Chauhan MD [address] [place] [address] PCP - General 03/07/06 Johnson Rm, MRI CT TECH.SENIOR SHAREPOINT ARCHITECT [address] [place] [address] Ammonium Nitrate Crystallizer Internal Medicine 08/25/[address] TECH.SENIOR TRAINER [address] [place] [address] Ammonium Nitrate Crystallizer Internal Medicine 08/25/24 Manager Work Relationship Specialty Start Date End Date Rodri Chauhan MD [address] [place] [address] PCP - General 03/07/06 Johnson Rm, MRI CT TECH.SENIOR SHAREPOINT ARCHITECT [address] [place] [address] Ammonium Nitrate Crystallizer Internal Medicine 08/25/24 Zunilda Jaramillo APRN.SENIOR TRAINER [address] [place] [address] Ammonium Nitrate Crystallizer Internal Medicine 08/25/24 Manager Work Relationship Specialty Start Date End Date Rodri Chauhan MD [address] [place] [address] PCP - General 03/07/06 Johnson Rm, MRI CT TECH.SENIOR SHAREPOINT ARCHITECT [address] [place] [address] Ammonium Nitrate Crystallizer Internal Medicine 08/25/[address] TECH.SENIOR TRAINER [address] [place] [address] Ammonium Nitrate Crystallizer Internal Medicine 08/25/24 Manager Work Relationship Specialty Start Date End Date Rodri Chauhan MD [address] [place] [address] PCP - General 03/07/06 Johnson Rm, MRI CT TECH.SENIOR SHAREPOINT ARCHITECT [address] [place] [address] Ammonium Nitrate Crystallizer Internal Medicine 08/25/24 Zunilda Jaramillo APRN.SENIOR TRAINER [address] [place] [address] Ammonium Nitrate Crystallizer Internal Medicine 08/25/24 Manager Work Relationship Specialty Start Date End Date Rodri Chauhan MD [address] [place] [address] PCP - General 03/07/06 Johnson Rm, MRI CT TECH.SENIOR SHAREPOINT ARCHITECT [address] [place] [address] Ammonium Nitrate Crystallizer Internal Medicine 08/25/[address] TECH.SENIOR TRAINER [address] [place] [address] Ammonium Nitrate Crystallizer Internal Medicine 08/25/24 Manager Work Relationship Specialty Start Date End Date Rodri Chauhan MD [address] [facility] [place] [address] PCP - General 03/07/06 Johnson Rm, MRI CT TECH.SENIOR SHAREPOINT ARCHITECT [address] [facility] [place] [address] Ammonium Nitrate Crystallizer Internal Medicine 08/25/[address] TECH.SENIOR TRAINER [address] [facility] [place] [address] [facility] 08/25/24 Manager Work Relationship Specialty Start Date End Date Rodri Chauhan MD [address] [place] [address] PCP - General 03/07/06 Johnson Rm, MRI CT TECH.SENIOR SHAREPOINT ARCHITECT [address] [facility] [place] [address] [facility] 08/25/[address] TECH.SENIOR TRAINER [address] [facility] [place] [address] [facility] 08/25/24 Manager Work Relationship Specialty Start Date End Date Rodri Chauhan MD [address] [facility] [place] [address] PCP - General 03/07/06 Johnson Rm, MRI CT TECH.SENIOR SHAREPOINT ARCHITECT [address] [place] [address] [facility] 08/25/24 Zunilda Jaramillo APRN.SENIOR TRAINER [address] [place] [address] Ammonium Nitrate Crystallizer Internal Medicine 08/25/24 Manager Work Relationship Specialty Start Date End Date Rodri Chauhan MD [address] [place] [address] PCP - General 03/07/06 Johnson Rm, MRI CT TECH.SENIOR SHAREPOINT ARCHITECT [address] [facility] [place] [address] Ammonium Nitrate Crystallizer Internal Medicine 08/25/[address] TECH.SENIOR TRAINER [address] [facility] [place] [address] Ammonium Nitrate Crystallizer Internal Medicine 08/25/24 Manager Work Relationship Specialty Start Date End Date Rodri Chauhan MD [address] [facility] [place] [address] PCP - General 03/07/06 Johnson Rm, MRI CT TECH.SENIOR SHAREPOINT ARCHITECT [address] [facility] [place] [address] Ammonium Nitrate Crystallizer Internal Medicine 08/25/[address] TECH.SENIOR TRAINER [address] [place] [address] Ammonium Nitrate Crystallizer Internal Medicine 08/25/24 Manager Work Relationship Specialty Start Date End Date Rodri Chauhan MD [address] [place] [address] PCP - General 03/07/06 Johnson Rm, MRI CT TECH.SENIOR SHAREPOINT ARCHITECT [address] [place] [address] [facility] 08/25/24 Manager Work Relationship Specialty Start Date End Date Rodri Chauhan MD [address] [place] [address] PCP - General 03/07/06 Johnson Rm, MRI CT TECH.SENIOR SHAREPOINT ARCHITECT [address] [place] [address] Ammonium Nitrate Crystallizer Internal Medicine 08/25/[address] TECH.SENIOR TRAINER [address] [place] [address] [facility] 12/09/24 Manager Work Relationship Specialty Start Date End Date Rodri Chauhan MD [address] [place] [address] PCP - General 03/07/06 Johnson Rm, MRI CT TECH.SENIOR SHAREPOINT ARCHITECT [address] [place] [address] [facility] 08/25/24 Zunilda Jaramillo, MRI CT TECH.SENIOR TRAINER [address] [place] [address] [facility] 12/09/24 Team Status: Active Member Role Status Dates Dr. Rodri Chauhan MD Primary Care Provider Active Team Status: Inactive Member Role Status Dates Dr. Rodri Chauhan MD Primary Care Provider Active Start: September 16, 2024 End: September 16, 2024 Zunilda Jaramillo SINGER BACK TENDER, SINGER BACK TENDER-C Referring Provider Active Start: September 16, 2024 End: September 16, 2024 TAMARA CotoM Attending Provider Active Start: September 16, 2024 End: September 16, 2024 Team Status: Inactive Member Role Status Dates Dr. Rodri Chauhan MD Primary Care Provider Active Start: September 18, 2024 End: September 18, 2024 Dr. Miles Littlejohn MD Attending Provider Active S tart: September 18, 2024 End: September 18, 2024 Dr. Sebas Lord DPM Referring Provider Active Start: September 18, 2024 End: September 18, 2024 Team Status: Inactive Member Role Status Dates Dr. Rodri Chauhan MD Primary Care Provider Active Start: September 23, 2024 End: October 17, 2024 Dr. Sebas Lord DPM Attending Provider Active Start: September 23, 2024 End: October 17, 2024 Dr. Sebas Lord DPM Referring Provider Active Start: September 23, 2024 End: October 17, 2024 Team Status: Inactive Member Role Status Dates Dr. Rodri Chauhan MD Primary Care Provider Active Start: October 17, 2024 End: October 17, 2024 Zunilda Jaramillo SINGER BACK TENDER, SINGER BACK TENDER-C Referring Provider Active Start: October 17, 2024 End: October 17, 2024 Dr. Sebas Lord DPM Attending Provider Active Start: October 17, 2024 End: October 17, 2024 Team Status: Inactive Member Role Status Dates Dr. Rodri Chauhan MD Primary Care Provider Active Start: November 12, 2024 End: November 14, 2024 Zunilda Jaramillo NP, SINGER BACK TENDER-C Referring Provider Active Start: November 12, 2024 End: November 14, 2024 Dr. Sebas Lord DPM Attending Provider Active Start: November 12, 2024 End: November 14, 2024 Team Status: Active Member Role Status Dates Dr. Rodri Chauhan MD Primary Care Provider Active Start: December 03, 2024 Dr. Sebas Lord DPM Attending Provider Active Start: December 03, 2024 Dr. Sebas Lord DPM Referring Provider Active Start: December 03, 2024 Team Status: Active Member Role Status Dates Dr. Rodri Chauhan MD Primary Care Provider Active Start: December 10, 2024 Zunilda Jaramillo SINGER BACK TENDER, SINGER BACK TENDER-C Referring Provider Active Start: December 10, 2024 Dr. Sebas Lord DPM Attending Provider Active Start: December 10, 2024 Team Status: Inactive Member Role Status Dates Dr. Rodri Chauhan MD Primary Care Provider Active Start: December 15, 2024 End: December 15, 2024 Dr. Arcadio Bundy MD Referring Provider Active Start: December 15, 2024 End: December 15, 2024 Dr. Arcadio Bundy MD Emergency Provider Active Start: December 15, 2024 End: December 15, 2024 Team Status: Inactive Member Role Status Dates Dr. Rodri Chauhan MD Primary Care Provider Active Start: December 10, 2024 End: December 15, 2024 Zunilda Jaramillo SINGER BACK TENDER, SINGER BACK TENDER-C Referring Provider Active Start: December 10, 2024 End: December 15, 2024 Dr. Sebas Lord DPM Attending Provider Active Start: December 10, 2024 End: December 15, 2024 Team Status: Inactive Member Role Status Dates Dr. Rodri Chauhan MD Primary Care Provider Active Start: December 03, 2024 End: December 15, 2024 Dr. Sebas Lord DPM Attending Provider Active Start: December 03, 2024 End: December 15, 2024 Dr. Sebas Lord DPM Referring Provider Active Start: December 03, 2024 End: December 15, 2024 Manager Work Relationship Specialty Start Date End Date Rodri Chauhan MD [address] [place], [place] [address] PCP - General 03/07/06 Johnson Rm, MRI CT TECH.SENIOR SHAREPOINT ARCHITECT [address] [place], [place] [address] Ammonium Nitrate Crystallizer Internal Medicine 08/25/24 Zunilda Jaramillo, MRI CT TECH.SENIOR TRAINER [address] [place], [place] [address] Ammonium Nitrate Crystallizer Internal Medicine 12/09/24 Manager Work Relationship Specialty Start Date End Date Rodri Chauhan MD [address] [place] [address] PCP - General 03/07/06 Johnson Rm, MRI CT TECH.SENIOR SHAREPOINT ARCHITECT [address] [place] [address] Ammonium Nitrate Crystallizer Internal Medicine 08/25/[address] TECH.SENIOR TRAINER [address] [place] [address] Ammonium Nitrate Crystallizer Internal Medicine 08/25/24 12/05/[address] TECH.SENIOR TRAINER [address] [facility] [place] [address] [facility] 12/09/24 Manager Work Relationship Specialty Start Date End Date Rodri Chauhan MD [address] [place] [address] PCP - General 03/07/06 Johnson Rm, MRI CT TECH.SENIOR SHAREPOINT ARCHITECT [address] [place] [address] Ammonium Nitrate Crystallizer Internal Medicine 08/25/[address] TECH.SENIOR TRAINER [address] [place] [address] [facility] 12/09/24 Manager Work Relationship Specialty Start Date End Date Rodri Chauhan MD [address] [place] [address] PCP - General 03/07/06 Johnson Rm, MRI CT TECH.SENIOR SHAREPOINT ARCHITECT [address] [facility] [place] [address] [facility] 08/25/[address] TECH.SENIOR TRAINER [address] [place] [address] [facility] 12/09/24 Manager Work Relationship Specialty Start Date End Date Rodri Chauhan MD [address] [place] [address] PCP - General 03/07/06 Johnson Rm, MRI CT TECH.SENIOR SHAREPOINT ARCHITECT [address] [place] [address] [facility] N[facility]rate [facility] 08/25/[address] TECH.SENIOR TRAINER [address] [place] [address] [facility] 12/09/24 Manager Work Relationship Specialty Start Date End Date Rodri Chauhan MD [address] [place] [address] PCP - General 03/07/06 Johnson Rm, MRI CT TECH.SENIOR SHAREPOINT ARCHITECT [address] [place] [address] [facility] 08/25/[address] TECH.SENIOR TRAINER [address] [place] [address] [facility] 12/09/24 Manager Work Relationship Specialty Start Date End Date Rodri Chauhan MD [address] [place] [address] PCP - General 03/07/06 Johnson Rm, MRI CT TECH.SENIOR SHAREPOINT ARCHITECT [address] [place] [address] [facility] N[facility] 08/25/24 Zunilda Jaramillo APRN.SENIOR TRAINER [address] [place] [address] [facility] 12/09/24 Manager Work Relationship Specialty Start Date End Date Rodri Chauhan MD [address] [place] [address] PCP - General 03/07/06 Johnson Rm APRN.SENIOR SHAREPOINT ARCHITECT [address] [place] [address] [facility] 08/25/[address] TECH.SENIOR TRAINER [address] [place] [address] [facility] 12/09/24 Team Status: Inactive Member Role Status Dates Dr. Rodri Chauhan MD Primary Care Provider Active Start: December 15, 2024 End: December 15, 2024 Dr. Arcadio Bundy MD Attending Provider Active Start: December 15, 2024 End: December 15, 2024 Dr. Arcadio Bundy MD Referring Provider Active Start: December 15, 2024 End: December 15, 2024 Dr. Arcadio Bundy MD Emergency Provider Active Start: December 15, 2024 End: December 15, 2024 Team Status: Active Member Role Status Dates Dr. Rodri Chauhan MD Primary Care Provider Active Start: January 26, 2025 Dr. Sebas Lord DPM Attending Provider Active Start: January 26, 2025 Dr. Sebas Lord DPM Referring Provider Active Start: January 26, 2025 Team Status: Active Member Role Status Dates Dr. Rodri Chauhan MD Primary Care Provider Active Start: January 30, 2025 Dr. Rodri Chauhan MD Referring Provider Active Start: January 30, 2025 ZEHRA Fulton Attending Provider Active Star t: January 30, 2025 Team Status: Inactive Member Role Status Dates Dr. Rodri Chauhan MD Primary Care Provider Active Start: January 30, 2025 End: January 30, 2025 Dr. Darrick Guzman MD Attending Provider Active S tart: January 30, 2025 End: January 30, 2025 Team Status: Inactive Member Role Status Dates Dr. Rodri Chauhan MD Primary Care Provider Active Start: January 30, 2025 End: January 30, 2025 Dr. Rodri Chauhan MD Referring Provider Active Start: January 30, 2025 End: January 30, 2025 ZEHRA Fulton Attending Provider Active Star t: January 30, 2025 End: January 30, 2025 Manager Work Relationship Specialty Start Date End Date Rodri Chauhan MD [address] [place], [place] [address] PCP - General 03/07/06 Johnson Rm, MRI CT TECH.SENIOR SHAREPOINT ARCHITECT [address] [place], [place] [address] [facility] 08/25/24 02/03/25 Zunilda Jaramillo, MRI CT TECH.SENIOR TRAINER [address] [place], [place] [address] [facility] 12/09/24 Johnson Rm, MRI CT TECH.SENIOR SHAREPOINT ARCHITECT [address] [place], [place] [address] [facility] 02/04/25 Manager Work Relationship Specialty Start Date End Date Rodri Chauhan MD [address] [place], [place] [address] PCP - General 03/07/06 Zunilda Jaramillo APRN.SENIOR TRAINER [address] [place] [address] [facility] 12/09/24 Johnson Rm, MRI CT TECH.SENIOR SHAREPOINT ARCHITECT [address] [place] [address] [facility] 02/04/25 Manager Work Relationship Specialty Start Date End Date Rodri Chauhan MD [address] [place] [address] PCP - General 03/07/06 Zunilda Jaramillo APRN.SENIOR TRAINER [address] [place] [address] [facility] 12/09/24 Johnson Rm, MRI CT TECH.SENIOR SHAREPOINT ARCHITECT [address] [place] [address] [facility] 02/04/25 Manager Work Relationship Specialty Start Date End Date Rodri Chauhan MD [address] [place] [address] PCP - General 03/07/[address] TECH.SENIOR TRAINER [address] [place] [address] [facility] 12/09/24 Johnson Rm APRN.SENIOR SHAREPOINT ARCHITECT [address] [place] [address] [facility] 02/04/25 Team Status: Inactive Member Role Status Dates Dr. Rodri Chauhan MD Primary Care Provider Active Start: January 26, 2025 End: February 14, 2025 Dr. Sebas Lord DPM Attending Provider Active Start: January 26, 2025 End: February 14, 2025 Dr. Sebas Lord DPM Referring Provider Active Start: January 26, 2025 End: February 14, 2025 Manager Work Relationship Specialty Start Date End Date Rodri Chauhan MD [address] [place] [address] PCP - General 03/07/[address] TECH.SENIOR TRAINER [address] [place] [address] [facility]monium N[facility]rate [facility] 12/09/24 Johnson Rm, MRI CT TECH.SENIOR SHAREPOINT ARCHITECT [address] [place] [address] [facility] 02/04/25 Manager Work Relationship Specialty Start Date End Date Rodri Chauhan MD [address] [place] [address] PCP - General 03/07/[address] TECH.SENIOR TRAINER [address] [place] [address] [facility]ium N[facility] 12/09/24 Johnson Rm, MRI CT TECH.SENIOR SHAREPOINT ARCHITECT [address] [place] [address] [facility] 02/04/25 Manager Work Relationship Specialty Start Date End Date Rodri Chauhan MD [address] [place] [address] PCP - General 03/07/06 Zunilda Jaramillo APRN.SENIOR TRAINER [address] [place] [address] [facility] 12/09/24 Johnson Rm APRN.SENIOR SHAREPOINT ARCHITECT [address] [place] [address] [facility] N[facility] 02/04/25 Manager Work Relationship Specialty Start Date End Date Rodri Chauhan MD [address] [place] [address] PCP - General 03/07/06 Zunilda Jaramillo APRN.SENIOR TRAINER [address] [place] [address] [facility]ium N[facility]rate [facility] 12/09/24 Johnson Rm, MRI CT TECH.SENIOR SHAREPOINT ARCHITECT [address] [place] [address] [facility] 02/04/25 Manager Work Relationship Specialty Start Date End Date Rodri Chauhan MD [address] [place] [address] PCP - General 03/07/06 [address] TECH.SENIOR TRAINER [address] [place] [address] [facility] N[facility]rate [facility] 12/09/24 Johnson Rm, MRI CT TECH.SENIOR SHAREPOINT ARCHITECT [address] [place] [address] [facility] N[facility] 02/04/25 Manager Work Relationship Specialty Start Date End Date Rodri Chauhan MD [address] [place] [address] PCP - General 03/07/06 Zunilda Jaramillo APRN.SENIOR TRAINER [address] [place], [place] [address] Am[facility]ium Nitrate [facility] 12/09/24 Johnson Rm, MARIJA.SENIOR SHAREPOINT ARCHITECT [address] [place], [place] [address] [facility] 02/04/25 Team Status: Active Member Role/Relationship Status Dates Dr. Rodri Chauhan MD Primary Care Provider Active Team Status: Inactive Member Role/Relationship Status Dates Dr. Rodri Chauhan MD Primary Care Provider Active Start: December 03, 2024 End: December 15, 2024 Dr. Sebas Lord DPM Attending Provider Active Start: December 03, 2024 End: December 15, 2024 Dr. Sebas Lord DPM Referring Provider Active Start: December 03, 2024 End: December 15, 2024 Team Status: Inactive Member Role/Relationship Status Dates Dr. Rodri Chauhan MD Primary Care Provider Active Start: December 10, 2024 End: December 15, 2024 Zunilda Jaramillo SINGER BACK TENDER, SINGER BACK TENDER-C Referring Provider Active Start: December 10, 2024 End: December 15, 2024 Dr. Sebas Lord DPM Attending Provider Active Start: December 10, 2024 End: December 15, 2024 Team Status: Inactive Member Role/Relationship Status Dates Dr. Rodri Chauhan MD Primary Care Provider Active Start: December 15, 2024 End: December 15, 2024 Dr. Arcadio Bundy MD Attending Provider Active Start: December 15, 2024 End: December 15, 2024 Dr. Arcadio Bundy MD Referring Provider Active Start: December 15, 2024 End: December 15, 2024 Dr. Arcadio Bundy MD Emergency Provider Active Start: December 15, 2024 End: December 15, 2024 Team Status: Inactive Member Role/Relationship Status Dates Dr. Rodri Chauhan MD Primary Care Provider Active Start: January 26, 2025 End: February 14, 2025 Dr. Sebas Lord DPM Attending Provider Active Start: January 26, 2025 End: February 14, 2025 Dr. Sebas Lord DPM Referring Provider Active Start: January 26, 2025 End: February 14, 2025 Team Status: Inactive Member Role/Relationship Status Dates Dr. Rodri Chauhan MD Primary Care Provider Active Start: January 30, 2025 End: January 30, 2025 Dr. Rodri Chauhan MD Referring Provider Active Start: January 30, 2025 End: January 30, 2025 ZEHRA Fulton Attending Provider Active Star t: January 30, 2025 End: January 30, 2025 Team Status: Inactive Member Role/Relationship Status Dates Dr. Rodri Chauhan MD Primary Care Provider Active Start: January 30, 2025 End: January 30, 2025 Dr. Darrick Guzman MD Attending Provider Active S tart: January 30, 2025 End: January 30, 2025 Team Status: Inactive Member Role/Relationship Status Dates Dr. Rodri Chauhan MD Primary Care Provider Active Start: March 11, 2025 End: March 16, 2025 Zunilda Jaramillo SINGER BACK TENDER, SINGER BACK TENDER-C Referring Provider Active Start: March 11, 2025 End: March 16, 2025 Dr. Sebas Lord DPM Attending Provider Active Start: March 11, 2025 End: March 16, 2025 Manager Work Relationship Specialty Start Date End Date Rodri Chauhan MD [address] [place], [place] [address] PCP - General 03/07/06 Zunilda Jaramillo, MRI CT TECH.SENIOR TRAINER [address] [place], [place] [id number] [facility] 12/09/24 Johnson Rm, MARIJA.SENIOR SHAREPOINT ARCHITECT [address] [place], [place] [id number] [facility] 02/04/25 Manager Work Relationship Specialty Start Date End Date Rodri Chauhan MD [address] [place] [address] PCP - General 03/07/06 Johnson Rm, MRI CT TECH.SENIOR SHAREPOINT ARCHITECT [address] [place] [address] Ammonium Nitrate C[facility] 08/25/24 02/03/[address] TECH.SENIOR TRAINER [address] [place] [address] Ammonium Nitrate [facility] 12/09/24 Johnson Rm, MRI CT TECH.SENIOR SHAREPOINT ARCHITECT [address] [place] [address] [facility] 02/04/25 Manager Work Relationship Specialty Start Date End Date Rodri Chauhan MD [address] [place] [address] PCP - General 03/07/06 Johnson Rm, MRI CT TECH.SENIOR SHAREPOINT ARCHITECT [address] [place] [address] Ammonium Nitrate C[facility] 08/25/24 02/03/25 Zunilda Jaramillo, MRI CT TECH.SENIOR TRAINER [address] [place] [address] [facility] 12/09/24 Johnson Rm, MRI CT TECH.SENIOR SHAREPOINT ARCHITECT [address] [place] [address] [facility] 02/04/25 Manager Work Relationship Specialty Start Date End Date Rodri Chauhan MD [address] [place] [address] PCP - General 03/07/06 Zunilda Jaramillo APRN.SENIOR TRAINER [address] [place] [address] Ammonium Nitrate C[facility] 12/09/24 Johnson Rm, MRI CT TECH.SENIOR SHAREPOINT ARCHITECT [address] [place] [address] Ammonium Nitrate [facility] 02/04/25 Manager Work Relationship Specialty Start Date End Date oRdri Chauhan MD [address] [place] [address] PCP - General 03/07/06 [address] TECH.SENIOR TRAINER [address] [place] [address] Ammonium Nitrate C[facility] 12/09/24 Johnson Rm, MRI CT TECH.SENIOR SHAREPOINT ARCHITECT [address] [place] [address] Ammonium Nitrate [facility] 02/04/25 Manager Work Relationship Specialty Start Date End Date Rodri Chauhan MD [address] [place] [address] PCP - General 03/07/06 Zunilda Jaramillo APRN.SENIOR TRAINER [address] [place] [address] Ammonium Nitrate [facility] 12/09/24 Johnson Rm, MRI CT TECH.SENIOR SHAREPOINT ARCHITECT [address] [place] [address] Ammonium Nitrate Crystallizer [facility] 02/04/25 Manager Work Relationship Specialty Start Date End Date Rodri Chauhan MD [address] [facility] [place] [address] PCP - General 03/07/[address] TECH.SENIOR TRAINER [address] [place] [address] Ammonium Nitrate C[facility]izer [facility] 12/09/24 Johnson Rm APRN.SENIOR SHAREPOINT ARCHITECT [address] [facility] [place] [id number] [facility] 02/04/25 Team Status: Inactive Member Role/Relationship Status Dates Dr. Rodri Chauhan MD Primary Care Provider Active Start: January 26, 2025 End: February 14, 2025 Dr. Sebas Lord DPM Attending Provider Active Start: January 26, 2025 End: February 14, 2025 Dr. Sebas Lord DPM Referring Provider Active Start: January 26, 2025 End: February 14, 2025 Team Status: Inactive Member Role/Relationship Status Dates Dr. Rodri Chauhan MD Primary Care Provider Active Start: January 30, 2025 End: January 30, 2025 Dr. Rodri Chauhan MD Referring Provider Active Start: January 30, 2025 End: January 30, 2025 ZEHRA Fulton Attending Provider Active Star t: January 30, 2025 End: January 30, 2025 Team Status: Inactive Member Role/Relationship Status Dates Dr. Rodri Chauhan MD Primary Care Provider Active Start: January 30, 2025 End: January 30, 2025 Dr. Darrick Guzman MD Attending Provider Active S tart: January 30, 2025 End: January 30, 2025 Team Status: Inactive Member Role/Relationship Status Dates Dr. Rodri Chauhan MD Primary Care Provider Active Start: March 11, 2025 End: March 16, 2025 Zunilda Jaramillo SINGER BACK TENDER, SINGER BACK TENDER-C Referring Provider Active Start: March 11, 2025 End: March 16, 2025 Dr. Sebas Lord DPM Attending Provider Active Start: March 11, 2025 End: March 16, 2025 Team Status: Inactive Member Role/Relationship Status Dates Dr. Rodri Chauhan MD Primary Care Provider Active Start: March 31, 2025 End: April 16, 2025 Dr. Sebas Lord DPM Attending Provider Active Start: March 31, 2025 End: April 16, 2025 Dr. Sebas Lord DPM Referring Provider Active Start: March 31, 2025 End: April 16, 2025 Manager Work Relationship Specialty Start Date End Date Rodri Chauhan MD [address] [place] [address] PCP - General 03/07/[address] TECH.SENIOR TRAINER [address] [place] [address] Ammonium Nitrate [facility] 12/09/24 Johnson Rm, MRI CT TECH.SENIOR SHAREPOINT ARCHITECT [address] [place] [address] Ammonium Nitrate [facility] 02/04/25 Manager Work Relationship Specialty Start Date End Date Rodri Chauhan MD [address] [place] [address] PCP - General 03/07/06 Z[address] TECH.SENIOR TRAINER [address] [place] [address] Ammonium Nitrate C[facility] 12/09/24 Johnson Rm, MRI CT TECH.SENIOR SHAREPOINT ARCHITECT [address] [place] [address] [facility] 02/04/25 Team Status: Inactive Member Role/Relationship Status Dates Dr. Rodri Chauhan MD Primary Care Provider Active Start: May 06, 2025 End: May 14, 2025 Zunilda Jaramillo SINGER BACK TENDER, SINGER BACK TENDER-C Referring Provider Active Start: May 06, 2025 End: May 14, 2025 Dr. Sebas Lord , DPM Attending Provider Active Start: May 06, 2025 End: May 14, 2025 Manager Work Relationship Specialty Start Date End Date Rodri Chauhan MD [address] [place] [address] PCP - General 03/07/06 Zunilda Jaramillo APRN.SENIOR TRAINER [address] [place] [address] Ammonium Nitrate C[facility]izer [facility] 12/09/24 Johnson Rm, MRI CT TECH.SENIOR SHAREPOINT ARCHITECT [address] [place] [address] [facility] 02/04/25 Manager Work Relationship Specialty Start Date End Date Rodri Chauhan MD [address] [place] [address] PCP - General 03/07/06 Zunilda Jaramillo APRN.SENIOR TRAINER [address] [place] [address] Ammonium Nitrate Crystallizer [facility] 12/09/24 Johnson Rm, MRI CT TECH.SENIOR SHAREPOINT ARCHITECT [address] [place] [address] [facility] 02/04/25 Team Status: Active Member Role/Relationship Status Dates Dr. Rodri Chauhan MD Primary care physician Active Team Status: Inactive Member Role/Relationship Status Dates Dr. Rodri Chauhan MD Primary care physician Active Start: March 11, 2025 End: March 16, 2025 Zunilda Jaramillo NP SINGER BACK TENDER-C Referring Provider Active Start: March 11, 2025 End: March 16, 2025 Dr. Sebas Lord DPM Attending physician Active Start: March 11, 2025 End: March 16, 2025 Team Status: Inactive Member Role/Relationship Status Dates Dr. Rodri Chauhan MD Primary care physician Active Start: March 31, 2025 End: April 16, 2025 Dr. Sebas Lord DPM Attending physician Active Start: March 31, 2025 End: April 16, 2025 Dr. Sebas Lord DPM Referring Provider Active Start: March 31, 2025 End: April 16, 2025 Team Status: Inactive Member Role/Relationship Status Dates Dr. Rodri Chauhan MD Primary care physician Active Start: May 06, 2025 End: May 14, 2025 Zunilda Jaramillo NP, NP-C Referring Provider Active Start: May 06, 2025 End: May 14, 2025 Dr. Sebas Lord DPM Attending physician Active Start: May 06, 2025 End: May 14, 2025 Team Status: Inactive Member Role/Relationship Status Dates Dr. Rodri Chauhan MD Primary care physician Active Start: June 02, 2025 End: June 16, 2025 Dr. Sebas Lord DPM Attending physician Active Start: June 02, 2025 End: June 16, 2025 Dr. Sebas Lord DPM Referring Provider Active Start: June 02, 2025 End: June 16, 2025 Team Status: Inactive Member Role/Relationship Status Dates Dr. Rodri Chauhan MD Primary care physician Active Start: March 31, 2025 End: April 16, 2025 Dr. Sebas Lord DPM Attending physician Active Start: March 31, 2025 End: April 16, 2025 Dr. Sebas Lord DPM Referring Provider Active Start: March 31, 2025 End: April 16, 2025 Team Status: Inactive Member Role/Relationship Status Dates Dr. Rodri Chauhan MD Primary care physician Active Start: May 06, 2025 End: May 14, 2025 Zunilda Jaramillo NP SINGER BACK TENDER-C Referring Provider Active Start: May 06, 2025 End: May 14, 2025 Dr. Sebas Lord DPM Attending physician Active Start: May 06, 2025 End: May 14, 2025 Team Status: Inactive Member Role/Relationship Status Dates Dr. Rodri Chauhan MD Primary care physician Active Start: June 02, 2025 End: June 16, 2025 Dr. Sebas Lord DPM Attending physician Active Start: June 02, 2025 End: June 16, 2025 Dr. Sebas Lord DPM Referring Provider Active Start: June 02, 2025 End: June 16, 2025 Team Status: Inactive Member Role/Relationship Status Dates Dr. Rodri Chauhan MD Primary care physician Active Start: July 04, 2025 End: July 04, 2025 Dr. Carri Sweeney DO Attending physician Active Start: July 04, 2025 End: July 04, 2025 Dr. Carri Sweeney DO Emergency Departm ent Physician Active Start: July 04, 2025 End: July 04, 2025 Team Status: Inactive Member Role/Relationship Status Dates Dr. Rodri Chauhan MD Primary care physician Active Start: July 17, 2025 End: July 17, 2025 Dr. Rodri Chauhan MD Referring Provider Active Start: July 17, 2025 End: July 17, 2025 Dr. Sebas Lord DPM Attending physician Active Start: July 17, 2025 End: July 17, 2025 Team Status: Active Member Role/Relationship Status Dates Dr. Rodri Chauhan MD Primary care physician Active Start: July 22, 2025 Dr. Rodri Chauhan MD Referring Provider Active Start: July 22, 2025 Dr. Sebas Lord DPM Attending physician Active Start: July 22, 2025 Goals (unrecognized section and content) Goals may be documented in a n alternate sectionGoals may be documented in an alternate sectionGoals may be documented in an alternate sectionGoals may be documented in an alternate sectionGoals may be documented in an alternate sectionGoals may be documented in an alternate sectionGoals may be documented in an alternate sectionGoals may be documented in an alternate sectionGoals may be documented in an alternate sectionGoals may be documented in an alternate sectionGoals may be documented in an alternate sectionGoals may be documented in an alternate sectionGoals may be documented in an alternate sectionGoals may be documented in an alternate sectionGoals may be documented in an alternate sectionGoals may be documented in an alternate sectionGoals may be documented in an alternate section FOR RECORDS PERTAINING TO PATIENTS WHO ARE [...] BE BASED ON THE PRIMARY CLINICAL RECORDS. [facility] [employer] [facility]. provides no warranty or guarantee of the accuracy or completeness of information in this document.
== END 2025-09-13 16:21 | disposition home or self-care (01) ==
LOC: ED 16:11
PROVIDERS: Emergency Provider Emergency Medicine; PCP Internal Medicine; Visit Provider Emergency Medicine
DX: S46.811A Strain of other muscles, fascia and tendons at shoulder and upper arm level, right arm, initial encounter (principal); F17.200 Nicotine dependence, unspecified, uncomplicated
CPT/HCPCS: 99283